=== PATIENT | female | born 1950 | race Caucasian/White ===

== ENCOUNTER → 2024-11-24 05:00 | Outpatient (REF) | payer MEDICARE, MEDICAID, SELFPAY ==
--- OUTSIDE RECORDS SUMMARY | 2024-11-24 03:45 | XMS RPT_ITS | CCD ---
Author Organization [facility] ion Partnership [facility] Care Team Providers Care Whittling Room Operator Name Role Phone Jeffry Castro Unavailable Unavailable Results Test Name Value Interpretation Reference Range Facility CBC-Complete Blood Cnt No Di ffon 07-30-2017 Erythrocyte distribution width Auto Ratio (RBC) 14.2 % Normal 11.6-14.6 [facility] Comment on above: Performed By: #### L 100.0500 ####[facility] [address] [place], [address] Erythrocytes (RBC) 3.53 M/mm3 Low 4.2-5.4 [facility] Comment on above: Performed By: #### L 100.0500 ####[facility] [address] [place], [address] Hematocrit (HCT) 35.6 % Low 37-47 [facility] Comment on above: Performed By: #### L 100.0500 ####[facility] [address] [place], [address] Hemoglobin mass conc (Bld) 11.3 g/dL Low 12.0-15.0 [facility] Comment on above: Performed By: #### L 100.0500 ####[facility] [address] [place], [address] MCH 32.0 pg Normal 27.0-32.0 [facility] Comment on above: Performed By: #### L 100.0500 ####[facility] [address] [place], [address] MCHC mass conc (RBC) 31.7 g/gl Low 32-36 [facility] Comment on above: Performed By: #### L 100.0500 ####[facility] [address] [place], [address] MCV 100.8 fL High 81-99 [facility] Comment on above: Performed By: #### L 100.0500 ####[facility] [address] [place], [address] Platelet mean volume (PMV) 11.5 fL Normal 6.2-12.0 [facility] Comment on above: Performed By: #### L 100.0500 ####[facility] [address] [place], [address] Platelets 201 10*3/uL Normal 150-450 [facility] Comment on above: Performed By: #### L 100.0500 ####[facility] [address] [place], [address] RDW SD 51.3 fl High 35.1-43.9 [facility] Comment on above: Performed By: #### L 100.0500 ####[facility] [address] [place], [address] WBC (Leukocytes) 7.4 10*3/uL Normal 4.4-11.0 [facility] Comment on above: Performed By: #### L 100.0500 ####[facility] [address] [place], [address] Comprehensive Metabolic Prof aron 07-30-2017 A/G 0.8 RATIO Low 0.9-2.4 [facility] Comment on above: Performed By: #### L 500.4050, L500.4100, L501.2300, L501.5200, L501.9520 ####[facility] [address] [place], [address] Alanine aminotransferase (ALT) 11 U/L Low 13-56 [facility] Comment on above: Performed By: #### L 500.4050, L500.4100, L501.2300, L501.5200, L501.9520 ####[facility] [address] [place], [address] Albumin 2.7 g/dL Low 3.2-5.0 [facility] Comment on above: Performed By: #### L 500.4050, L500.4100, L501.2300, L501.5200, L501.9520 ####[facility] [address] [place], [address] Alkaline phosphatase (ALP) 73 U/L Normal 45-117 [facility] Comment on above: Performed By: #### L 500.4050, L500.4100, L501.2300, L501.5200, L501.9520 ####[facility] [address] [place], [address] Aspartate aminotransferase (AST) 12 U/L Low 15-37 [facility] Comment on above: Performed By: #### L 500.4050, L500.4100, L501.2300, L501.5200, L501.9520 ####[facility] [address] [place], [address] Bilirubin (total) 0.60 mg/dL Normal 0.20-1.00 [facility] Comment on above: Performed By: #### L 500.4050, L500.4100, L501.2300, L501.5200, L501.9520 ####[facility] [address] [place], [address] BUN (urea nitrogen) 9.0 RATIO Low 10-20 [facility] Comment on above: Performed By: #### L 500.4050, L500.4100, L501.2300, L501.5200, L501.9520 ####[facility] [address] [place], [address] Calcium 7.9 mg/dL Low 8.5-10.1 [facility] Comment on above: Performed By: #### L 500.4050, L500.4100, L501.2300, L501.5200, L501.9520 ####[facility] [address] [place], [address] Chloride 108 mmol/L High 98-107 [facility] Comment on above: Performed By: #### L 500.4050, L500.4100, L501.2300, L501.5200, L501.9520 ####[facility] [address] [place], [address] CO2 31.0 mmol/L Normal 21.0-32.0 [facility] Comment on above: Performed By: #### L 500.4050, L500.4100, L501.2300, L501.5200, L501.9520 ####[facility] [address] [place], [address] Creatinine 0.78 mg/dL Normal 0.55-1.02 [facility] Comment on above: Result Comment: The validity of the calculated GFR AND GFRAA in patients over70 years has not been determined. Clinical correlation isessential. Performed By: #### L 500.4050, L500.4100, L501.2300, L501.5200, L501.9520 ####[facility] [address] [place], [address] eGFR (non-black) 95 mL/min/{1.73_m2} Normal >60 [facility] Comment on above: Result Comment: Afri can Jordanian GFR Calc Performed By: #### L 500.4050, L500.4100, L501.2300, L501.5200, L501.9520 ####[facility] [address] [place], [address] eGFR (non-black) 78 mL/min/{1.73_m2} Normal >60 [facility] Comment on above: Result Comment: Non- GFR Calc Performed By: #### L 500.4050, L500.4100, L501.2300, L501.5200, L501.9520 ####[facility] [address] [place], [address] GAP 4 Low 5-15 [facility] Comment on above: Performed By: #### L 500.4050, L500.4100, L501.2300, L501.5200, L501.9520 ####[facility] [address] [place], [address] Globulin 3.5 g/dL Normal 2.2-4.2 [facility] Comment on above: Performed By: #### L 500.4050, L500.4100, L501.2300, L501.5200, L501.9520 ####[facility] [address] [place], [address] Glucose mass conc 208 mg/dL High 74-106 [facility] Comment on above: Result Comment: Gluc ose result greater than or equal to 200 mg/dLsuggests DIABETES MELLITUS per A.D.A. criteria.Please note revised GLUCOSE reference range llbopazds84/02/2018. Performed By: #### L 500.4050, L500.4100, L501.2300, L501.5200, L501.9520 ####[facility] [address] [place], [address] Potassium molar conc 4.2 mmol/L Normal 3.5-5.1 [facility] Comment on above: Performed By: #### L 500.4050, L500.4100, L501.2300, L501.5200, L501.9520 ####[facility] [address] [place], [address] Sodium 143 mmol/L Normal 136-145 [facility] Comment on above: Performed By: #### L 500.4050, L500.4100, L501.2300, L501.5200, L501.9520 ####[facility] [address] [place], [address] T PROT 6.2 g/dL Low 6.4-8.2 [facility] Comment on above: Performed By: #### L 500.4050, L500.4100, L501.2300, L501.5200, L501.9520 ####[facility] [address] [place], [address] Urea nitrogen 7 mg/dL Normal 7-18 [facility] Comment on above: Performed By: #### L 500.4050, L500.4100, L501.2300, L501.5200, L501.9520 ####[facility] [address] [place], [address] Hemoglobin A1con 07-30-2017 Hemoglobin A1c/Hemoglobin.total mass fraction (Bld) 8.4 % High 4.2-6.3 [facility] Comment on above: Performed By: #### L 501.9985 ####[facility] [address] [place], [address] Lipid Profileon 07-30-2017 Cholesterol 124 mg/dL Normal 200 [facility] Comment on above: Result Comment: <200 mg/dL Desirable 200-240 mg/dL Borderline >240 mg/dL High Risk Performed By: #### L 500.4050, L500.4100, L501.2300, L501.5200, L501.9520 ####[facility] [address] [place], [address] Cholesterol in VLDL mass conc 15 mg/dL Normal 5-40 [facility] Comment on above: Performed By: #### L 500.4050, L500.4100, L501.2300, L501.5200, L501.9520 ####[facility] [address] [place], [address] HDL Cholesterol 44 mg/dL Normal [facility] Comment on above: Result Comment: The drugs N-Acetylcysteine and Metamizole may falselydepress this assay. Reference Range HDL <40 mg/dL Low HDL Cholesterol HDL >or= 60 mg/dL High HDL Cholesterol Performed By: #### L 500.4050, L500.4100, L501.2300, L501.5200, L501.9520 ####[facility] [address] [place], [address] LDL Cholesterol 65 mg/dL Normal 0-130 [facility] Comment on above: Performed By: #### L 500.4050, L500.4100, L501.2300, L501.5200, L501.9520 ####[facility] [address] [place], [address] Triglyceride 76 mg/dL Normal [facility] Comment on above: Result Comment: The drugs N-Acetylcysteine and Metamizole may falselydepress this assay.Serum Triglycerides Reference Interval Normal <150 mg/dL Borderline high 150 - 199 mg/dL High 200 - 499 mg/dL Very High > or = 500 mg/dL Performed By: #### L 500.4050, L500.4100, L501.2300, L501.5200, L501.9520 ####[facility] [address] [place], [address] Magnesiumon 07-30-2017 Magnesium 2.1 mg/dL Normal 1.6-2.6 [facility] Comment on above: Performed By: #### L 500.4050, L500.4100, L501.2300, L501.5200, L501.9520 ####[facility] [address] [place], [address] Phosphoruson 07-30-2017 Phosphate 3.6 mg/dL Normal 2.5-4.9 [facility] Comment on above: Performed By: #### L 500.4050, L500.4100, L501.2300, L501.5200, L501.9520 ####[facility] [address] [place], [address] Thyroid Stim Hormone (TSH)on 07-30-2017 Thyroid stimulating hormone (TSH) 4.72 uIU/mL High 0.358-3.74 [facility] Comment on above: Performed By: #### L 500.4050, L500.4100, L501.2300, L501.5200, L501.9520 ####[facility] [address] [place], [address] Vitamin D,25 Hydroxyon 07-30 Vitamin D 25-OH 9.3 ng/mL Low 29.95-100.01 [facility] Comment on above: Result Comment: Nerissa min D 25(OH) Status Range Deficiency <20 ng/mL (50nmol/L) Insuffciency 20 - 30 ng/mL (50 - 75 nmol/L) Sufficiency 30 - 100 ng/mL (75 - 250 nmol/L) Toxicity >100 ng/mL (>250 nmol/L) Performed By: #### L 506.1000 ####[facility] [address] [place], [address] Encounters Encounter Date Encounter Type Care Provider Facility Start: 07-30-2017 [facility] Facility: [facility] Payers Date Payer Category Payer Self-pay Summary Purpose Family History No Family History Records Found Advance Directives No Advanced Directives Records Found Additional Source Comments INFORMATION SOURCE (unrecogn ized section and content) DATE CREATED AUTHOR 09/20/2017 [facility] FOR RECORDS PERTAINING TO PATIENTS WHO ARE OR HAVE BEEN ENROLLED IN A CHEMICAL DEPENDENCY/SUBSTANCEABUSE PROGRAM, SOME INFORMATION MAY BE OMITTED. This clinical summary was aggregated from multiple sources. Caution should be exercised in using it in the provision of clinical care. This summary normalizes information from multiple sources, and as a consequence, information in this document may materially change the coding, format and clinical context of patient data. In addition, data may be omitted in some cases. CLINICAL DECISIONS SHOULD BE BASED ON THE PRIMARY CLINICAL RECORDS. [facility] [employer] [facility]. provides no warranty or guarantee of the accuracy or completeness of information in this document.
[2024-11-24 08:48] LABS: Hematocrit 37.3 % (37-47); Hemoglobin 12.2 g/dL (12.0-15.0); Mean Corp Hgb Conc 32.7 g/dL (32-36); Mean Corpuscular Volume 96.6 fL (81-99); Mean Platelet Vol. 12.8 fl (6.2-12.0); Platelet Count 180 K/mm3 (150-450); RBC Distribution Width CV 13.9 % (11.6-14.6); RBC Distribution Width SD 49.1 fl (35.1-43.9); Red Blood Count 3.86 M/mm3 (4.2-5.4); White Blood Count 6.7 K/mm3 (4.4-11.0)
[2024-11-24 09:42] LABS: Cholesterol 141 mg/dL (<=200); Low Density Lipoprotein Calc. 61 mg/dL; Triglycerides 244 mg/dL; Very Low Density Lipoprotein 49 mg/dL (5-40); Vitamin D,25 Hydroxy 26.5 ng/mL (30-100); cholesterol:hdl ratio screen 4.56
[2024-11-24 09:48] LABS: Anion Gap 16 (5-15); BUN 19 mg/dL (4-19); BUN/Creat Ratio 26.6 RATIO (10-20); Calcium,Total 8.7 mg/dL (7.6-11.0); Carbon Dioxide 21.2 mmol/L (21.0-32.0); Chloride 103 mmol/L (98-108); Glucose 177 mg/dL (70-99); Potassium 4.1 mmol/L (3.3-5.1)
== END ==
LOC: OLS.ACW300 05:00
PROVIDERS: Visit Provider Family Medicine
DX: E11.621 Type 2 diabetes mellitus with foot ulcer (principal); L97.412 Non-pressure chronic ulcer of right heel and midfoot with fat layer exposed; M62.81 Muscle weakness (generalized); R27.9 Unspecified lack of coordination; I10 Essential (primary) hypertension
CPT/HCPCS: 36415; 80048; 80061; 82306; 83036; 84443; 85027

== ENCOUNTER → 2025-02-06 05:00 | Outpatient (REF) | payer MEDICARE, MEDICAID, SELFPAY ==
--- OUTSIDE RECORDS SUMMARY | 2025-02-06 04:20 | XMS RPT_ITS | CCD ---
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 Name Role Phone Patricia King Unavailable Unavailable Gunning, Diego H Unavailable Unavailable Unavailable Unavailable Unavailable Catarina Diego H Unavailable [phone] Praveen MichaelKasire Unavailable Sandra Martinez Unavailable Unavailable Jens Frederick Unavailable Jose Shultz Unavailable Loli Kingston Unavailable Cliff Anaya Unavailable Unavailable Reji Levin Unavailable Rosendo COSBY, Armando Bunch Primary Care Provider [phone] Vogt DOPaige Primary Care Provider Darci DO, Annette A Unavailable Paige Rivera DO Primary Care Provider Darci DO, Annette A Unavailable Hakangt Tereza JOVELPaige Primary Care Provider Darci DO, Annette A Unavailable Bashir Vásquez MD Unavailable Paige Rivera DO Primary Care Provider Darci DO, Annette A Unavailable Bashir Vásquez MD Unavailable Paige Rivera DO Primary Care Provider Darci DO, Annette A Unavailable Jeffry Lopez Attending Unavailable BASHIR VÁSQUEZ Attending Unavailable PAIGE RIVERA Primary Care Unavailable PAIGE RIVERA Primary Care Unavailable CRISTINO BRUNO Admitting Unavailable PAIGE RIVERA Attending Unavailable PAIGE RIVERA Primary Care Unavailable GODWIN GOETZ Admitting Unavailable TESHA MCNAMARA Attending Unavailable Allergies Allergy Classification Reported Allergen(s) Allergy Type Date of Onset Reaction(s) Facility ertapenem (2 sources) ertapenem Drug Allergy 08-02-2022 [facility] [employer] (20 sources) ertapenem Drug Allergy 08-02-2022 [facility] Medications Current Medications Medication Drug Class(es) Dates Sig (Normalized) Sig (Original) aspirin 81 mg chewable tablet (9 sources) Platelet Aggregation Inhibitor, Nonsteroidal Anti-inflammatory Drug Start: 03-09-2021 End: 06-16-2022 take 81 mg by mouth once daily 81 mg, Oral, DAILY, First dose (after last modification) on Sun03/22/21 at 0900 Start: 08-14-2019 take 1 tablet by fito th once daily aspirin 81 mg oral delayed release tablet ; 1 tab(s) orally once a day Quantity: 0 Refills: 0 Ordered: 14-Aug-2019 Pasha Hay Start: 14-Aug-2019 Generic Substitution Allowed Calcium Carbonate-Vitamin D (Oyster Shell Calcium/D) 500-5 MG-MCG tablet (3 sources) take 1 tablet by mouth once daily Calcium Carbonate-Vitamin D (Oyster Shell Calcium/D) 500-5 MG-MCG tablet Take 1 tablet by mouth daily. Active citalopram 10 mg oral tablet (4 sources) Serotonin Reuptake Inhibitor Start: take 1 tablet by mouth once daily citalopram 10 mg oral tablet ; 1 tab(s) orally once a day Quantity: 0 Refills: 0 Ordered: 14-Aug-2019 Pasha Hay Start: 14-Aug-2019 Status: Other Generic Substitution Allowed collagenase 0.25 unt/mg topical ointment (3 sources) Collagen-specifi c Enzyme Start: End: Start: 04-08-2021 apply 1 dose topically once To pical, EVERY MWF, First dose (after last modification) on Sun04/08/21 at 0900 Apply to *Right plantar foot with wound VAC dressing changes Start: 04-01-2021 End: 04-05-2021 Topical, DAILY, First dose o n Sun04/01/21 at 0900 Apply to *Right plantar foot. . Remove Wound VAC dressing Sunday 04/01 and start Santyl with saline moist gauze Daily dressing changes, pad with ABD and secure with kerlix diclofenac sodium 0.01 mg/mg topical gel (20 sources) Nonsteroidal Anti-inflammatory Drug Start: 01-11-2023 End: 11-30-2023 Diclofenac Sodium (Voltaren) 1 % gel Apply 4 g topically 2 times daily. 50 g 1 01/11/2023 Active Start: 01-08-2023 End: 01-11-2023 Diclofenac Sodium (Voltaren) 1 % gel 4 g Drug or medicament (substanc e) (14 sources) Start: 11-29-2023 End: 12-07-2023 take 2000 mg intravenously every eight hours Start: 11-26-2023 End: 11-30-2023 Start: 11-25-2023 End: 11-30-2023 Start: 07-30-2023 End: 08-09-2023 apply 1 dose topically every eight hours Topical, Every 8 hours, First dose on Sun07/30/23 at 2230 Start: 06-16-2022 End: 06-24-2022 Start: 06-16-2022 End: 06-16-2022 Start: 03-09-2021 apply 1 dose topically twice d aily Topical, 2 TIMES DAILY, First dose on Sun03/09/21 at 1400 Start: 03-09-2021 Topical, PRN, Dry Skin, Starting on Sun03/09/21 at 1333 ertapenem 1000 mg injection (2 sources) Penem Antibacterial ertapenem 1 g injection ; 1 gram(s) intravenous once a day (at bedtime) Quantity: 0 Refills: 0 Ordered: 17-Mar-2020 Vanessa Castillo Status: Other Generic Substitution Allowed folic acid 1 mg oral tablet (11 sources) Start: 08-07-19 End: 11-08-19 take 1 tablet by mouth once daily folic acid (Folvite) 1 MG tablet Take 1 tablet (1 mg) by mouth daily. 30 tablet 2 08/10/2023 11/08/2023 Active 1 ml hydrALAZINE hydrochloride 20 mg/ml injection (5 sources) Arteriolar Vasodilator Start: 01-08-20 22 10 mg, IntraVENous, EVERY 6 HOURS PRN, High Blood Pressure, SBP>160, Starting on 04/09/21 at 1436 HOLD for HR>100 Start: 03-15-2021 End: 03-24-2021 20 mg, IntraVENous, EVERY 6 HOURS, First dose on Sun03/15/21 at 1400 Hold for SBP < 140 Start: 03-15-2021 End: 04-01-2021 10 mg, IntraVENous, EVERY 3 HOURS PRN, High Blood Pressure, Starting on Sun03/15/21 at 1115 PRN for SBP > 180 Start: 03-15-2021 End: 03-15-2021 10 mg, IntraVENous, ONCE, On Sun03/15/21 at 0915, For 1 dose Start: 03-15-2021 End: 03-15-2021 10 mg, IntraVENous, EVERY 4 HOURS PRN, High Blood Pressure, Starting on Sun03/15/21 at 0530 PRN for SBP > 180 insulin lispro 100 unt/ml injectable solution (20 sources) Insulin Analog Start: 08-09-2023 End: 10-18-2024 Insulin Lispro (Humalog) 100 UNIT/ML solution injection Inject 5 Units under the skin in the morning and 5 Units at noon and 5 Units in the evening. Inject with meals. 10 mL 2 08/09/2023 Active Start: 08-09-2023 End: 08-08-2024 Start: 08-03-2023 End: 08-03-2023 0-18 Units, SubCUTAneous, Ev salvador 6 hours, First dose on Sun08/03/23 at 0000, High Dose Correction Algorithm Glucose: Dose: LESS than 139 No Insulin 140-199 3 Unit 200-249 6 Units 250-299 9 Units 300-349 12 Units 350-400 15 Units Above 400 18 Units Start: 07-31-2023 End: 08-01-2023 inject 3 [IU] by subcutaneous injection three times daily at mealtime 3 Units, SubCUTAneous, 3 times daily with meals, First dose on Sun07/31/23 at 0800, Recovery & On Unit, On hold since Sun07/31/2023 at 1637 until manually unheld Start: 07-30-2023 End: 07-31-2023 inject 12 [IU] by subcutaneous injection every six hours 0-12 Units, SubCUTAneous, Every 6 hours, First dose on Sun07/30/23 at 2145, Medium Dose Correction Algorithm Glucose: Dose: LESS than 139 No Insulin 140-199 2 Unit 200-249 4 Units 250-299 6 Units 300-349 8 Units 350-400 10 Units Above 400 12 Units Start: 08-07-2022 End: 08-08-2024 inject 5 [IU] by subcutaneous injection three times daily at mealtime 5 Units, SubCUTAneous, 3 times daily with meals, First dose on Sun08/06/23 at 1700 Start: 08-04-2022 End: 08-07-2023 Insulin Lispro (Humalog) 100 UNIT/ML solution injection Inject 3 Units under the skin in the morning and 3 Units at noon and 3 Units in the evening. Inject with meals. 10 mL 2 08/07/2022 08/07/2023 Active Start: 08-03-2022 End: 08-09-2023 inject 6 [IU] by subcutaneous injection three times daily at mealtime 0-6 Units, SubCUTAneous, 3 times daily with meals, First dose on Sun08/06/23 at 1700, Low Dose Correction Algorithm Glucose: Dose: LESS than 139 No Insulin 140-199 1 Unit 200-249 2 Units 250-299 3 Units 300-349 4 Units 350-400 5 Units Above 400 6 Units Start: 06-16-2022 End: 06-16-2023 inject 3 [IU] by subcutaneous injection three times daily at mealtime 3 Units, SubCUTAneous, 3 times daily with meals, First dose on Sun01/08/23 at 1305 Start: 06-14-2022 End: 06-16-2023 Insulin Lispro (Humalog) 100 UNIT/ML solution injection Inject 0-18 Units under the skin 4 times daily (before meals and nightly). 10 mL 12 06/16/2022 08/07/2022 Discontinued (Stop taking at discharge) Start: 06-09-2022 End: 06-14-2022 0-18 Units, SubCUTAneous, Ev salvador 6 hours, First dose on Sun06/10/22 at 0730 High Dose Correction Algorithm Glucose: &n bsp; &nbsp ; &n bsp; & nbsp;Dose: LESS than 139 No Insulin 140-199 3 Unit 200-249 6 Units 250-299 9 Units 300-349 12 Units 350-400 15 Units Above 400 18 Units Start: 04-10-2021 End: 04-11-2021 inject 7 [IU] by subcutaneous injection three times daily at mealtime 7 Units, SubCUTAneous, 3 TIMES DAILY WITH MEALS, First dose (after last modification) on Sun04/10/21 at 1200 Start: 04-09-2021 End: 04-10-2021 inject 5 [IU] by subcutaneous injection three times daily at mealtime 5 Units, SubCUTAneous, 3 TIMES DAILY WITH MEALS, First dose (after last modification) on Sun04/09/21 at 1200 Start: 04-06-2021 End: 04-09-2021 inject 3 [IU] by subcutaneous injection three times daily at mealtime 3 Units, SubCUTAneous, 3 TIMES DAILY WITH MEALS, First dose on Sun04/06/21 at 1700 Start: 03-16-2021 End: 04-13-2021 Start: 03-09-2021 End: 03-15-2021 inject 3 [IU] by subcutaneous injection three times daily at mealtime 3 Units, SubCUTAneous, 3 TIMES DAILY WITH MEALS, First dose on Sun03/09/21 at 0800 insulin lispro 1 00 units/mL subcutaneous solution ; subcutaneous 3 times a day (before meals) Quantity: 0 Refills: 0 Ordered: 02-Feb-2021 Neelima Real Generic Substitution Allowed HumaLOG 100 unit s/mL injectable solution ; 2 UNITS injectable , As Needed PER SLIDING SCALE TID Quantity: 0 Refills: 0 Ordered: 05-Aug-2019 Nany Mohamud Status: Discontinued Generic Substitution Allowed Lactobacillus acidophilus (2 sources) Start: 02-06-2021 lactobacillus acidophilus oral tablet ; orally Quantity: 0 Refills: 0 Ordered: 06-Feb-2021 Seble Garcia Start: 06-Feb-2021 Generic Substitution Allowed losartan potassium 50 mg oral tablet (1 source) Angiotensin 2 Receptor Dyan Start: 02-10-2021 take 1 tablet by mouth once daily losartan 50 mg oral tablet ; 1 tab(s) orally once a day Quantity: 0 Refills: 0 Ordered: 10-Feb-2021 Cristiane Poon Start: 10-Feb-2021 Generic Substitution Allowed magnesium hydroxide 80 mg/ml oral suspension (5 sources) take 30 mL by mouth once daily magnesium hydroxide (Milk of Magnesia) 400 MG/5ML suspension Take 30 mL by mouth Nightly. Active End: 06-16-2022 take 30 mL by mouth every twenty-four hours as needed for constipation take 30 mL by mouth every twenty-four hours as needed for constipation magnesium hydroxide (Milk of Magnesia) 800 MG/5ML suspension Take 30 mL by mouth Daily as needed for constipation. 0 Suspended magnesium oxide 400 mg oral tablet (3 sources) Start: 08-14-2019 take 1 tablet by mouth once daily magnesium oxide 400 mg (241.3 mg elemental magnesium) oral tablet ; 1 tab(s) orally once a day Quantity: 0 Refills: 0 Ordered: 14-Aug-2019 Pasha Hay Start: 14-Aug-2019 Generic Substitution Allowed End: 04-13-2021 metFORMIN hydrochloride 500 mg oral tablet (4 sources) Biguanide take 1 tablet by mouth twice daily at mealtime metFORMIN (Glucophage) 500 MG tablet Take 500 mg by mouth 2 times daily (with meals). Active take 1 tablet by mouth twice edi ly metFORMIN 1000 mg oral tablet ; 1 tab(s) orally 2 times a day Quantity: 0 Refills: 0 Ordered: 17-Mar-2020 Vanessa Castillo Generic Substitution Allowed metoprolol tartrate 25 mg oral tablet (2 sources) beta-Adrenergic Dyan take 1 tablet by mouth twice daily metoprolol tartrate 25 mg oral tablet ; 1 tab(s) orally 2 times a day Quantity: 0 Refills: 0 Ordered: 05-Aug-2019 Nany Mohamud Status: Discontinued Generic Substitution Allowed Multivitamin preparation (4 sources) take 1 tablet by mouth once daily Multi Vitamin+ ; 1 tab(s) orally once a day Quantity: 0 Refills: 0 Ordered: 05-Aug-2019 Nany Mohamud Generic Substitution Allowed take 1 capsule by mouth twice da cosmo Prostate 2.4 oral capsule ; 1 cap(s) orally 2 times a day Quantity: 0 Refills: 0 Ordered: 05-Aug-2019 Nany Mohamud Status: Discontinued Generic Substitution Allowed nitrofurantoin, macrocrystals 50 mg oral capsule (2 sources) Nitrofuran Antibacterial take 1 capsule by mouth once daily at bedtime nitrofurantoin macrocrystals 50 mg oral capsule ; 1 cap(s) orally once a day (at bedtime) Quantity: 0 Refills: 0 Ordered: 02-Feb-2021 Neelima Real Status: Discontinued Generic Substitution Allowed nitrofurantoin, macrocrystals 25 mg / nitrofurantoin, monohydrate 75 mg oral capsule (2 sources) Nitrofuran Antibacterial Start: 2019 take 1 capsule by mouth twice daily Macrobid 100 mg oral capsule ; 1 cap(s) orally 2 times a day for 10 days Quantity: 0 Refills: 0 Ordered: 17-Mar-2020 Vanessa Castillo Start: 14-Mar-2020 Status: Other Generic Substitution Allowed pantoprazole 40 mg delayed release oral tablet (1 source) Proton Pump Inhibitor Start: 2020 take 40 mg by mouth once daily before breakfast 40 mg, Oral, DAILY BEFORE BREAKFAST, First dose on Sun03/22/21 at 0700 Do not crush or break. semaglutide (Ozempic) 2 MG/3ML pen-injector (2 sources) inject 0.25 mg by subcutaneous injection once daily semaglutide (Ozempic) 2 MG/3ML pen-injector Inject 0.25 mg under the skin daily. Active traMADol hydrochloride 50 mg oral tablet (2 sources) Opioid Agonist take 1 tablet by mouth four times daily at mealtime traMADol (Ultram) 50 MG tablet Take 50 mg by mouth 4 times daily (with meals and nightly). Active Vancomycin - RPh to Dose - IV Piggy Back (2 sources) Start: 2020 Vancomycin - RPh to Dose - IV Piggy Back ; 1 each - to As Specified Variable Quantity: 0 Refills: 0 Ordered: 06-Feb-2021 Seble Garcia Start: 06-Feb-2021 Status: Discontinued Generic Substitution Allowed Start: 02-06-2021 Vancomycin - R Ph to Dose - IV Piggy Back ; 1 each - to As Specified Variable Quantity: 0 Refills: 0 Ordered: 06-Feb-2021 RadhaSeble Start: 06-Feb-2021 Generic Substitution Allowed vitamin b12 1 mg oral tablet (11 sources) Vitamin B12 Start: 08-07-2023 End: 11-08-2023 take 1 tablet by mouth once daily cyanocobalamin (Vitamin B-12) 1000 MCG tablet Take 1 tablet (1,000 mcg) by mouth daily. 30 tablet 2 08/10/2023 11/08/2023 Active warfarin sodium 4 mg oral tablet (2 sources) Vitamin K Antagonist take 1 tablet by mouth once daily warfarin 4 mg oral tablet ; 1 tab(s) orally once a day Quantity: 0 Refills: 0 Ordered: 05-Aug-2019 Nany Mohamud Status: Discontinued Generic Substitution Allowed (2 sources) Completed/Discontinued Medications Medication Drug Class(es) Dates Sig (Normalized) Sig (Original) acetaminophen 325 mg oral tablet (20 sources) Start: 01-29-2025 End: 02-04-2025 325 mg, Oral, 3 times daily, First dose on [place] 01/29/25 at 1400, Maximum dose of acetaminophen is 4000 mg from all sources in 24 hours. Start: 01-29-2025 End: 02-04-2025 take 1 tablet by mouth every six hours as needed for pain and fever acetaminophen (Tylenol) tablet 650 mg Start: 10-09-2024 End: 10-09-2024 Start: 01-03-2024 End: 01-03-2024 1,000 mg, Oral, Once, On [place] 01/03/24 at 1000, For 1 dose, Preprocedure, Administer 60 minutes prior to surgery. Start: 01-08-2023 End: 01-11-2023 take 1 tablet by mouth every six hours as needed for pain and fever acetaminophen (Tylenol) tablet 650 mg Start: 08-02-2022 End: 08-07-2022 take 1 tablet by mouth every six hours as needed for pain and fever acetaminophen (Tylenol) tablet 650 mg Start: 06-09-2022 End: 06-09-2022 take 650 mg rectal route once 650 mg, Rectal, Once, On Sun06/09/22 at 1145, For 1 dose Start: 03-21-2021 End: 12-09-2023 take 650 mg by mouth every six hours as needed for pain and fever Start: 03-16-2021 End: 03-21-2021 975 mg, Per G Tube, 3 TIMES DAILY, First dose (after last modification) on Sun03/16/21 at 0900 Maximum dose of acetaminophen is 4000 mg from all sources in 24 hours. Start: 03-08-2021 End: 03-15-2021 take 975 mg by mouth three times daily, then take 4000 mg by mouth every twenty-four hours 975 mg, Oral, 3 TIMES DAILY, First dose on Sun03/08/21 at 2100 Maximum dose of acetaminophen is 4000 mg from all sources in 24 hours. Start: 08-14-2019 take 3 tablets by mo uth every eight hours acetaminophen 325 mg oral tablet ; 3 tab(s) orally every 8 hours Quantity: 0 Refills: 0 Ordered: 14-Aug-2019 Pasha Hay Start: 14-Aug-2019 Status: Other Generic Substitution Allowed take 2 tablets by mo uth three times daily Tylenol 500 mg oral tablet ; 2 tab(s) orally 3 times a day Quantity: 0 Refills: 0 Ordered: 02-Feb-2021 Neelima Real Generic Substitution Allowed 20 ml albumin human, skilled nursing 250 mg/ml injection (20 sources) Human Serum Albumin Start: 08-05-2023 End: 08-06-2023 take 25 g intravenously every eight hours 25 g, IntraVENous, at 200 mL/hr, Administer over 30 Minutes, Every 8 hours, First dose on Sun08/05/23 at 1400, For 4 doses Start: 08-02-2023 End: 08-05-2023 50 g, IntraVENous, at 200 mL /hr, Administer over 1 Hours, Once, On Sun08/03/23 at 0600, For 1 dose Start: 07-30-2023 End: 07-31-2023 50 g, IntraVENous, at 200 mL /hr, Administer over 1 Hours, Once, On Sun07/31/23 at 1830, For 1 dose Start: 06-09-2022 End: 06-10-2022 50 g, IntraVENous, Once, On Sun06/10/22 at 0415, For 1 dose Infusion rate depends on indication and clinical situation. In emergencies, may administer as rapidly as necessary to improve clinical condition. After initial volume replacement: 5%: Do not exceed 2 to 4 mL/minute in patients with normal plasma volume; 5 to 10 mL/minute in patients with hypoproteinemia 25%: Do not exceed 1 mL/minute in patients with normal plasma volume; 2 to 3 mL/minute in patients with hypoproteinemia Start: 03-21-2021 End: 03-21-2021 50 g, IntraVENous, at 200 mL /hr, Administer over 60 Minutes, ONCE, On Sun03/21/21 at 1600, For 1 dose Infusion rate depends on indication and clinical situation. In emergencies, may administer as rapidly as necessary to improve clinical condition. After initial volume replacement: 5%: Do not exceed 2 to 4 mL/minute in patients with normal plasma volume; 5 to 10 mL/minute in patients with hypoproteinemia 25%: Do not exceed 1 mL/minute in patients with normal plasma volume; 2 to 3 mL/minute in patients with hypoproteinemia Start: 03-16-2021 End: 03-17-2021 50 g, IntraVENous, at 200 mL /hr, Administer over 60 Minutes, ONCE, On Sun03/16/21 at 2300, For 1 dose Infusion rate depends on indication and clinical situation. In emergencies, may administer as rapidly as necessary to improve clinical condition. After initial volume replacement: 5%: Do not exceed 2 to 4 mL/minute in patients with normal plasma volume; 5 to 10 mL/minute in patients with hypoproteinemia 25%: Do not exceed 1 mL/minute in patients with normal plasma volume; 2 to 3 mL/minute in patients with hypoproteinemia Start: 03-15-2021 End: 03-15-2021 50 g, IntraVENous, at 200 mL /hr, Administer over 60 Minutes, ONCE, On Sun03/15/21 at 0330, For 1 dose Infusion rate depends on indication and clinical situation. In emergencies, may administer as rapidly as necessary to improve clinical condition. After initial volume replacement: 5%: Do not exceed 2 to 4 mL/minute in patients with normal plasma volume; 5 to 10 mL/minute in patients with hypoproteinemia 25%: Do not exceed 1 mL/minute in patients with normal plasma volume; 2 to 3 mL/minute in patients with hypoproteinemia albuterol 0.833 mg/ml / ipratropium bromide 0.167 mg/ml inhalation solution (4 sources) Anticholinergic, beta2-Adrenergic Agonist Start: 07-31-2023 End: 08-09-2023 3 mL, Nebulization, 3 times daily, First dose on Sun07/31/23 at 0800 Start: 03-27-2021 End: 03-29-2021 1 ampule, Inhalation, 3 TIME S DAILY, First dose on 03/27/21 at 0945 Start: 03-13-2021 1 ampule, Inha lation, EVERY 4 HOURS PRN, Shortness of Breath, Starting on 03/13/21 at 1411 ALPRAZolam 0.25 mg disintegrating oral tablet (4 sources) Benzodiazepine Start: 01-03-2024 End: 01-03-2024 take 0.25 mg by mouth once as needed for anxiety 0.25 mg, Oral, Once PRN, anxiety, Starting on [place] 01/03/24 at 0948, For 1 dose, Preprocedure, Please do not administer prior to obtaining consent and/or history and physical. Start: 09-27-2023 End: 09-27-2023 take 0.25 mg by mouth once as needed for anxiety 0.25 mg, Oral, Once PRN, anxiety, Starting on [place] 09/27/23 at 1014, For 1 dose, Preprocedure, Please do not administer prior to obtaining consent and/or history and physical. aluminum hydroxide 40 mg/ml / magnesium hydroxide 40 mg/ml oral suspension (3 sources) End: 06-16-2022 take 30 mL by mouth every four hours as needed for gastroesophageal reflux disease take 30 mL by mouth every four hours as needed for gastroesophageal reflux disease aluminum-magnesium hydroxide 200-200 MG/5ML suspension Take 30 mL by mouth every 4 hours as needed for heartburn. 0 Suspended apixaban 5 mg oral tablet (20 sources) Factor Xa Inhibitor Start: 01-29-2025 End: 02-04-2025 take 5 mg by mouth twice daily 5 mg, Oral, 2 times daily, First dose on Celeste 30/25 at 1325, Anticoagulant Start: 10-09-2024 End: 10-18-2024 Start: 11-23-2023 End: 11-30-2023 Start: 07-31-2023 End: 08-09-2023 take 5 mg by mouth twice daily 5 mg, Oral, 2 times edi ly, First dose on Sun07/31/23 at 0200, Anticoagulant Start: 01-29-2021 End: 01-11-2023 take 5 mg by mouth twice daily 5 mg, Oral, 2 times edi ly, First dose on Sun06/09/22 at 2100, For 7 days Anticoagulant ascorbic acid 500 mg chewable tablet (20 sources) Vitamin C Start: 07-31-2023 End: 08-09-2023 take 250 mg by mouth once daily 250 mg, Oral, Daily, First dose on Sun07/31/23 at 0900, Recovery & On Unit, On hold since Sun08/06/2023 at 0029 until manually unheld Start: 01-08-2023 End: 01-11-2023 take 250 mg by mouth once daily 250 mg, Oral, Daily, F irst dose on Sun01/08/23 at 1305 take 1 tablet by fito th once daily ascorbic acid (Vitamin C) 250 MG tablet Take 250 mg by mouth daily. Active take 1 tablet by fito th once daily ascorbic acid 500 mg oral tablet ; 1 tab(s) orally once a day Quantity: 0 Refills: 0 Ordered: 05-Aug-2019 Nany Mohamud Generic Substitution Allowed atorvastatin 20 mg oral tabl et (20 sources) HMG-CoA Reductase Inhibitor Start: 11-23-2023 End: 11-30-2023 Start: 07-31-2023 End: 08-09-2023 take 20 mg by mouth once daily 20 mg, Oral, Nightly, F irst dose on Sun07/31/23 at 2100 Start: 01-08-2023 End: 01-11-2023 take 20 mg by mouth once daily 20 mg, Oral, Daily, Fir st dose on Sun01/08/23 at 1305 Start: 08-02-2022 End: 08-07-2022 take 20 mg by mouth once daily 20 mg, Oral, Nightly, F irst dose on Sun08/02/22 at 2100 Start: 06-09-2022 End: 06-16-2022 take 20 mg by mouth once daily 20 mg, Oral, Daily, Fir [facility] dose on Sun06/09/22 at 1930 Start: 03-09-2021 End: 03-21-2021 take 20 mg by mouth once daily 20 mg, Oral, DAILY, [facility]ir [facility] dose (after last modification) on Sun03/22/21 at 0900 Start: 08-14-2019 take 1 tablet by fito once daily at bedtime atorvastatin 10 mg oral tablet ; 1 tab(s) orally once a day (at bedtime) Quantity: 0 Refills: 0 Ordered: 17-Mar-2020 Jonathan Vanessa Start: 14-Aug-2019 Status: Other Generic Substitution Allowed baclofen 10 mg oral tablet (20 sources) gamma-Aminobutyric Acid-ergic Agonist Start: 01-29-2025 End: 02-04-2025 take 5 mg by mouth three times daily 5 mg, Oral, 3 times daily, First dose on Sun01/29/25 at 1400 Start: 11-23-2023 End: 11-30-2023 Start: 07-31-2023 End: 08-09-2023 take 5 mg by mouth three times daily 5 mg, Oral, 3 times daily, First dose on Sun07/31/23 at 0900, Recovery & On Unit, On hold since Sun08/06/2023 at 0029 until manually unheld Start: 01-08-2023 End: 01-11-2023 baclofen (Lioresal) tablet 5 mg Start: 08-02-2022 End: 08-07-2022 take 5 mg by mouth once daily 5 mg, Oral, Daily, First dose on Sun08/02/22 at 2015 Start: 06-09-2022 End: 06-16-2022 take 5 mg by mouth twice daily 5 mg, Oral, 2 times edi ly, First dose on Sun06/09/22 at 2100 Start: 04-14-2021 take 1 tablet by fito three times daily baclofen (Lioresal) 5 MG tablet Take 1 tablet by mouth 3 times daily. 04/14/2021 Active Start: 04-14-2021 take 1 tablet by fito once daily baclofen (Lioresal) 5 MG tablet Take 1 tablet by mouth daily. 0 04/14/2021 Active Start: 04-14-2021 take 1 tablet by fito twice daily baclofen (Lioresal) 5 MG tablet Take 1 tablet by mouth 2 times daily. 0 04/14/2021 Active Start: 03-26-2021 take 5 mg by mouth twice daily 5 mg, Oral, 2 TIMES DAILY, First dose (after last modification) on Sun03/26/21 at 2100 Start: 03-16-2021 End: 03-26-2021 take 5 mg by mouth three times daily 5 mg, Oral, 3 TIMES DAILY, First dose (after last modification) on Sun03/16/21 at 0900 Start: 03-08-2021 End: 03-16-2021 take 20 mg by mouth three times daily 20 mg, Oral, 3 TIMES DAILY, First dose on Sun03/08/21 at 2130 Start: 08-14-2019 take 2 tablets by mo [facility] three times daily baclofen 10 mg oral tablet ; 2 tab(s) orally 3 times a day Quantity: 0 Refills: 0 Ordered: 02-Feb-2021 Neelima Real Start: 14-Aug-2019 Generic Substitution Allowed End: 04-14-2021 take 1 tablet by fito three times daily baclofen 10 mg oral tablet ; 1 tab(s) orally 3 times a day Quantity: 0 Refills: 0 Ordered: 05-Aug-2019 Nany Mohamud Status: Discontinued Generic Substitution Allowed bisacodyl 10 mg rectal suppository (2 sources) Stimulant Laxative Start: 07-31-2023 End: 08-09-2023 take 10 mg rectal route twice daily 10 mg, Rectal, 2 times daily, First dose on Sun07/31/23 at 0600 bumetanide 1 mg oral tablet (20 sources) Loop Diuretic Start: 08-07-2023 End: 02-04-2025 take 1 mg by mouth twice daily 1 mg, Oral, 2 times daily, First dose on Sun01/29/25 at 1500 Start: 03-08-2021 End: 04-13-2021 take 0.5 mg by mouth twice daily 0.5 mg, Oral, 2 TIMES DAILY, First dose on Sun03/08/21 at 2130 take 1 tablet by fito twice daily bumetanide 1 mg oral tablet ; 1 tab(s) orally 2 times a day Quantity: 0 Refills: 0 Ordered: 05-Aug-2019 Nany Mohamud Status: Discontinued Generic Substitution Allowed calcium carbonate 500 mg chewable tablet (3 sources) End: 06-16-2022 calcium carbonate 1250 mg / cholecalciferol 200 unt oral tablet (20 sources) Vitamin D Start: 01-08-2023 End: 01-11-2023 take 1 tablet by mouth once daily 1 tablet, Oral, Daily, First dose on Sun01/08/23 at 1305 Start: 08-02-2022 End: 08-07-2022 take 1 tablet by mouth once daily 1 tablet, Oral, Sharan y, First dose on Sun08/02/22 at 2015 Start: 03-22-2021 take 1 tablet by mouth once da cosmo 1 tablet, Oral, DAILY, First dose (after last modification) on Sun03/22/21 at 0900 Start: 03-16-2021 End: 03-21-2021 1 tablet, Per G Tube, DAILY, First dose (after last modification) on Sun03/16/21 at 0900 Start: 03-09-2021 End: 03-15-2021 take 1 tablet by mouth once daily 1 tablet, Oral, SHARAN Y, First dose on Sun03/09/21 at 0900 calcium chloride 0.0014 meq/ml / potassium chloride 0.004 meq/ml / sodium chloride 0.103 meq/ml / sodium lactate 0.028 meq/ml injectable solution (20 sources) Start: 02-03-2025 End: 02-04-2025 take 100 mL intravenously every hour 100 mL/hr, IntraVENous, Continuous, Starting on Sun02/03/25 at 1815 Start: 10-09-2024 End: 10-10-2024 Start: 01-03-2024 End: 01-03-2024 take 125 mL intravenously every hour 125 mL/hr, IntraVENous, Continuous, Starting on Sun01/03/24 at 1415, Recovery (only) Start: 11-23-2023 End: 11-24-2023 Start: 09-27-2023 End: 09-27-2023 take 50 mL intravenously every hour 50 mL/hr, IntraVEN ous, Continuous, Starting on Sun09/27/23 at 1015, Preprocedure, Upon admission to sameday - please start iv if patient does not have iv access. Use 500ml NS for patients on dialysis. Start: 07-30-2023 End: 08-01-2023 500 mL, IntraVENous, at 250 mL/hr, Administer over 2 Hours, Once, On 07/30/23 at 2330, For 1 dose Start: 06-10-2022 End: 06-10-2022 1,000 mL, IntraVENous, at 50 0 mL/hr, Administer over 2 Hours, Once, On 06/10/22 at 1100, For 1 dose Start: 06-09-2022 End: 06-12-2022 take 100 mL intravenously every hour 100 mL/hr, IntraVENous, Continuous, Starting on 06/11/22 at 0530 Start: 03-14-2021 End: 03-15-2021 500 mL, IntraVENous, at 250 mL/hr, Administer over 2 Hours, ONCE, On Tu03/15/21 at 0330, For 1 dose 100 ml calcium gluconate 20 mg/ml injection (6 sources) Start: 08-04-2023 End: 08-04-2023 2,000 mg, IntraVENous, at 50 mL/hr, Administer over 2 Hours, Once, On 08/04/23 at 0530, For 1 dose, premix bag Start: 07-31-2023 End: 08-01-2023 2,000 mg, IntraVENous, at 50 mL/hr, Administer over 2 Hours, Once, On 07/31/23 at 2245, For 1 dose, premix bag ceFAZolin 2000 mg injection (1 source) Cephalosporin Antibacterial Start: 03-21-2021 End: 03-21-2021 IntraVENous, CONTINUOUS PRN, Starting on Sun03/21/21 at 1616, Until Sun03/21/21 at 1616, Pre-op (day of surgery) cephalexin 250 mg oral capsule (1 source) Cephalosporin Antibacterial Start: 04-11-2021 End: 04-11-2021 take 1 dose by mouth four times daily 250 mg, Oral, EVERY 6 HOURS SCHEDULED (4 times per day), First dose on Sun04/11/21 at 0000 chlorhexidine gluconate 1.2 mg/ml mouthwash (1 source) Start: 03-15-2021 End: 03-20-2021 take 15 mL by mouth twice daily 15 mL, Mouth/Throat, 2 TIMES DAILY, First dose on Sun03/15/21 at 2330 For mechanical ventilation care. cholecalciferol 9.52 unt/ml / glucose 357 mg/ml oral gel (20 sources) Vitamin D Start: 01-29-2025 End: 02-04-2025 Start: 10-09-2024 End: 10-18-2024 Start: 01-03-2024 End: 01-03-2024 15 g, Oral, As needed, low b lood sugar, Starting on [place] 01/03/24 at 1026, Preprocedure, If blood glucose less than 50 mg/dL and patient ALERT and NOT NPO, give 2 tubes glucose gel. If blood glucose less than 70 mg/dL and patient ALERT and NOT NPO, give 1 tube glucose gel. Repeat blood glucose in 15 minutes. If blood glucose is less than 70 mg/dL, repeat treatment and recheck blood glucose in 15 minutes x2 and notify provider. Start: 11-23-2023 End: 11-30-2023 Start: 09-27-2023 End: 09-27-2023 15 g, Oral, As needed, low b lood sugar, Starting on [place] 09/27/23 at 1021, Preprocedure, If blood glucose less than 50 mg/dL and patient ALERT and NOT NPO, give 2 tubes glucose gel. If blood glucose less than 70 mg/dL and patient ALERT and NOT NPO, give 1 tube glucose gel. Repeat blood glucose in 15 minutes. If blood glucose is less than 70 mg/dL, repeat treatment and recheck blood glucose in 15 minutes x2 and notify provider. Start: 07-30-2023 End: 08-09-2023 15 g, Oral, As needed, low b lood sugar, Starting on Sun07/30/23 at 2143, If blood glucose less than 50 mg/dL and patient ALERT and NOT NPO, give 2 tubes glucose gel. If blood glucose less than 70 mg/dL and patient ALERT and NOT NPO, give 1 tube glucose gel. Repeat blood glucose in 15 minutes. If blood glucose is less than 70 mg/dL, repeat treatment and recheck blood glucose in 15 minutes x2 and notify provider. Start: 01-08-2023 End: 01-11-2023 15 g, Oral, As needed, low b lood sugar, Starting on Sun01/08/23 at 1300, If blood glucose less than 50 mg/dL and patient ALERT and NOT NPO, give 2 tubes glucose gel. If blood glucose less than 70 mg/dL and patient ALERT and NOT NPO, give 1 tube glucose gel. Repeat blood glucose in 15 minutes. If blood glucose is less than 70 mg/dL, repeat treatment and recheck blood glucose in 15 minutes x2 and notify provider. Start: 08-02-2022 End: 08-07-2022 15 g, Oral, As needed, low b lood sugar, Starting on Sun08/02/22 at 2009 If blood glucose less than 50 mg/dL and patient ALERT and NOT NPO, give 2 tubes glucose gel. If blood glucose less than 70 mg/dL and patient ALERT and NOT NPO, give 1 tube glucose gel. Repeat blood glucose in 15 minutes. If blood glucose is less than 70 mg/dL, repeat treatment and recheck blood glucose in 15 minutes x2 and notify provider. Start: 06-09-2022 End: 06-16-2022 15 g, Oral, As needed, low b lood sugar, Starting on Sun06/09/22 at 1602 If blood glucose less than 50 mg/dL and patient ALERT and NOT NPO, give 2 tubes glucose gel. If blood glucose less than 70 mg/dL and patient ALERT and NOT NPO, give 1 tube glucose gel. Repeat blood glucose in 15 minutes. If blood glucose is less than 70 mg/dL, repeat treatment and recheck blood glucose in 15 minutes x2 and notify provider. 100 ml dexmedetomidine 0.004 mg/ml injection (1 source) Central alpha-2 Adrenergic Agonist Start: 03-18-2021 End: 03-19-2021 take 10-69.9 mL intravenously every hour 0.2-1.4 mcg/kg/hr 199.6 kg (9.98-69.86 mL/hr, rounded to 10-69.9 mL/hr), IntraVENous, CONTINUOUS, Starting on Sun03/18/21 at 1300 For sedation, titrate to RASS +1 to -1 Dose Range: 0.2 to 1.4 mcg/kg/hr Initial dose 0.2 mcg/kg/hr Max dose: 1.4 mcg/kg/hr Contact physician if max dose does not achieve desired response If RASS 1 or more points below goal, decrease dose by 0.1 mcg/kg/hr no faster than every 30 min If RASS at goal, continue same rate If RASS 1 or more points above goal, increase dose by 0.1 mcg/kg/hr no faster than every 30 min 1 ml diphenhydrAMINE hydrochloride 50 mg/ml cartridge (2 sources) Histamine-1 Receptor Antagonist Start: 01-03-2024 End: 01-03-2024 12.5 mg, IntraVENous, Once PRN, itching, Starting on Sun01/03/24 at 1404, For 1 dose, Recovery (only) docusate sodium 100 mg oral capsule (4 sources) Start: 03-08-2021 End: 04-06-2021 take 100 mg by mouth twice daily 100 mg, Oral, 2 TIMES DAILY, First dose (after last modification) on Sun03/21/21 at 2100 Do not crush or break. docusate sodium 50 mg / sennosides, skilled nursing 8.6 mg oral tablet (20 sources) Start: 01-29-2025 End: 02-04-2025 take 2 tablets by mouth once daily 2 tablet, Oral, Nightly, First dose on Sun01/29/25 at 2100 Start: 07-31-2023 End: 08-09-2023 take 2 tablets by mouth twice daily 2 tablet, Oral, 2 times daily, First dose on Sun07/31/23 at 0600 Start: 08-02-2022 End: 08-07-2022 take 1 tablet by mouth once daily 1 tablet, Oral, Nightly, First dose on Sun08/02/22 at 2100 Start: 04-06-2021 take 2 tablets by mo uth once daily 2 tablet, Oral, DAILY, First dose on Sun04/06/21 at 1700 Start: 04-06-2021 End: 01-11-2023 senna-docusate (Helena-Colace) 8.6-50 MG tablet Take 100 tablets by mouth Every 24 hours. 04/06/2021 Active Start: 04-06-2021 End: 10-18-2024 take 2 tablets by [facility] twice daily Senna Plus 50 mg-8.6 mg oral tablet ; 2 tab(s) orally 2 times a day Quantity: 0 Refills: 0 Ordered: 02-Feb-2021 Neelima Real Generic Substitution Allowed donepezil hydrochloride 5 mg oral tablet (20 sources) Start: 01-29-2025 End: 02-04-2025 take 10 mg by mouth once daily 10 mg, Oral, Nightly, First dose on Sun01/29/25 at 2099 Start: 10-09-2024 End: 10-18-2024 Start: 11-23-2023 End: 11-30-2023 Start: 07-31-2023 End: 08-09-2023 take 10 mg by mouth once daily 10 mg, Oral, Nightly, F irst dose on Sun07/31/23 at 2099 Start: 01-08-2023 End: 01-11-2023 take 10 mg by mouth once daily 10 mg, Oral, Nightly, F irst dose on Sun01/08/23 at 2100 Start: 08-02-2022 End: 08-07-2022 take 10 mg by mouth once daily 10 mg, Oral, Nightly, F irst dose on Sun08/02/22 at 2099 Start: 04-15-2022 End: 08-07-2022 donepezil (Aricept) 5 MG tab let Start: 03-08-2021 End: 03-21-2021 take 5 mg by mouth once daily 5 mg, Oral, NIGHTLY, Fir st dose (after last modification) on Sun03/21/21 at 2100 doxycycline hyclate 100 mg oral tablet (8 sources) Tetracycline-class Drug Start: 03-23-2022 End: 08-07-2022 doxycycline (Vibra-Tabs) 100 MG tablet 0.6 ml enoxaparin sodium 100 mg/ml prefilled syringe (2 sources) Low Molecular Weight Heparin Start: 03-09-2021 End: 04-08-2021 inject 60 mg by subcutaneous injection twice daily 60 mg, SubCUTAneous, 2 TIMES DAILY, First dose (after last modification) on Sun03/09/21 at 2100 1.7 ml EPINEPHrine 0.01 mg/ml / lidocaine hydrochloride 20 mg/ml cartridge (3 sources) Antiarrhythmic, alpha-Adrenergic Agonist, beta-Adrenergic Agonist, Catecholamine, Amide Local Anesthetic Start: 06-15-2022 End: 06-15-2022 As needed, Starting on [place] 06/15/22 at 1414, Intraprocedure Start: 03-21-2021 End: 03-21-2021 ONCE PRN, Starting on Sun at 1602, For 1 dose ertapenem (INVanz) 1,000 mg in sodium chloride 0.9 % 50 mL IVPB Mini-Bag Plus (2 sources) Start: 08-04-2022 End: 08-06-2022 ertapenem (INVanz) 1,000 mg in sodium chloride 0.9 % 50 mL IVPB Mini-Bag Plus famotidine 20 mg oral tablet (2 sources) Histamine-2 Receptor Antagonist Start: 01-08-2023 End: 01-11-2023 take 20 mg by mouth once daily 20 mg, Oral, Daily, First dose on Sun01/08/23 at 1305 2 ml fentaNYL 0.05 mg/ml injection (10 sources) Opioid Agonist Start: 10-09-2024 End: 10-09-2024 Start: 10-09-2024 End: 10-09-2024 Start: 10-09-2024 End: 10-11-2024 Start: 01-03-2024 End: 01-03-2024 25 mcg, IntraVENous, Every 5 min PRN, moderate pain (4-6), Starting on [place] 01/03/24 at 1404, For 3 doses, Recovery (only), Phase I and Phase II- Initial therapy for moderate pain (4-6). Restricted to a 90 minute time frame starting when the patient can verbally state their pain score. If after 2 doses the pain score does not decrease by more than one point, then call the provider. If oral meds are utilized, do not return to initial therapy medications. Start: 07-31-2023 End: 07-31-2023 IntraVENous, Code/trauma/sed ation medication, Starting on Sun07/31/23 at 0429 Start: 03-21-2021 End: 03-21-2021 ONCE PRN, Starting on Sun at 1601, For 1 dose Start: 03-15-2021 End: 03-20-2021 50 mcg, IntraVENous, EVERY 1 5 MIN PRN, Pain, Starting on Sun03/15/21 at 2304 If oral and IV narcotics ordered, use oral first and only use IV if oral is ineffective or cannot take oral. Do Not give oral and IV within 1 hour of each other unless specifically ordered. ferrous sulfate 325 mg oral tablet (16 sources) Start: 01-09-2023 End: 01-11-2023 take 325 mg by mouth once daily at breakfast 325 mg, Oral, Daily with breakfast, First dose on Sun01/09/23 at 0800 Start: 08-03-2022 End: 08-07-2022 take 325 mg by mouth once daily at breakfast 325 mg, Oral, Daily with breakfast, First dose on Sun08/03/22 at 0800 Start: 06-16-2022 End: 06-16-2023 take 1 tablet by mouth once daily at breakfast ferrous sulfate 325 (65 Fe) MG EC tablet Take 1 tablet (325 mg) by mouth daily (with breakfast). Do not crush, chew, or split. 30 tablet 06/16/2022 06/16/2023 Active 4 ml furosemide 10 mg/ml injection (20 sources) Loop Diuretic Start: 08-04-2023 End: 08-05-2023 80 mg, IntraVENous, Once, On Sun08/05/23 at 0415, For 1 dose Start: 08-04-2023 End: 08-04-2023 40 mg, IntraVENous, Once, On 08/04/23 at 0730, For 1 dose Start: 08-02-2023 End: 08-03-2023 80 mg, IntraVENous, Once, On Sun08/03/23 at 0600, For 1 dose Start: 08-02-2023 End: 08-02-2023 40 mg, IntraVENous, Once, On [place] 08/02/23 at 1030, For 1 dose Start: 07-11-2022 End: 08-09-2023 Start: 07-11-2022 End: 08-07-2022 take 1 tablet by mouth in the morning furosemide (Lasix) 40 MG tablet Take 40 mg by mouth in the morning and 40 mg in the evening. 0 07/11/2022 Active Start: 08-14-2019 take 1 tablet by fito th twice daily furosemide 40 mg oral tablet ; 1 tab(s) orally 2 times a day Quantity: 0 Refills: 0 Ordered: 14-Aug-2019 Pasha Hay Start: 14-Aug-2019 Status: Other Generic Substitution Allowed gabapentin 300 mg oral capsule (20 sources) Anti-epileptic Agent Start: 01-29-2025 End: 02-04-2025 take 300 mg by mouth three times daily 300 mg, Oral, 3 times daily, First dose on Sun01/29/25 at 1400 Start: 10-09-2024 End: 10-18-2024 Start: 11-23-2023 End: 11-30-2023 Start: 08-09-2023 End: 10-08-2023 take 3 capsules by mouth three times daily gabapentin (Neurontin) 100 MG capsule Take 3 capsules (300 mg) by mouth 3 times daily. 180 capsule 2 08/09/2023 Active Start: 08-07-2023 End: 08-09-2023 take 300 mg by mouth three times daily 300 mg, Oral, 3 times daily, First dose (after last modification) on Sun08/07/23 at 1400, Recovery & On Unit Start: 01-11-2023 End: 10-08-2023 Start: 01-09-2023 End: 08-09-2023 take 200 mg by mouth three times daily 200 mg, Oral, 3 times daily, First dose on Sun07/31/23 at 0900, Recovery & On Unit Start: 06-09-2022 End: 06-16-2022 take 100 mg by mouth twice daily 100 mg, Oral, 2 times daily, First dose on Sun06/09/22 at 2100 Start: 03-18-2021 End: 07-13-2021 Start: 08-14-2019 End: 04-14-2021 take 300 mg by mouth twice daily 300 mg, Oral, 2 TIMES DAILY, First dose on Sun03/08/21 at 2130 End: 01-11-2023 take 1 capsule by mouth three times daily gabapentin (Neurontin) 100 MG capsule Take 100 mg by mouth 3 times daily. 0 01/11/2023 Discontinued (Stop taking at discharge) take 1 tablet by fito th four times daily gabapentin 600 mg oral tablet ; 1 tab(s) orally 4 times a day Quantity: 0 Refills: 0 Ordered: 05-Aug-2019 Nany Mohamud Status: Discontinued Generic Substitution Allowed glucagon (rdna) 1 mg injecti on (20 sources) Antihypoglycemic Agent Start: 01-29-2025 End: 02-04-2025 Start: 10-09-2024 End: 10-18-2024 Start: 01-03-2024 End: 01-03-2024 1 mg, IntraMUSCular, PRN, lo w blood sugar, Blood glucose less than 70 mg/dL and patient NOT ALERT or NPO and does not have IV access., Starting on [place] 01/03/24 at 0948, Preprocedure, After administration, attempt intravenous access and start D5W at 100 mL/hr. Repeat blood glucose in 15 minutes x2 and notify provider. Start: 11-23-2023 End: 11-30-2023 Start: 09-27-2023 End: 09-27-2023 1 mg, IntraMUSCular, PRN, lo w blood sugar, Blood glucose less than 70 mg/dL and patient NOT ALERT or NPO and does not have IV access., Starting on [place] 09/27/23 at 1021, Preprocedure, After administration, attempt intravenous access and start D5W at 100 mL/hr. Repeat blood glucose in 15 minutes x2 and notify provider. Start: 07-30-2023 End: 08-09-2023 1 mg, IntraMUSCular, PRN, lo w blood sugar, Blood glucose less than 70 mg/dL and patient NOT ALERT or NPO and does not have IV access., Starting on [facility] 07/30/23 at 2143, After administration, attempt intravenous access and start D5W at 100 mL/hr. Repeat blood glucose in 15 minutes x2 and notify provider. Start: 01-08-2023 End: 01-11-2023 1 mg, IntraMUSCular, PRN, lo w blood sugar, Blood glucose less than 70 mg/dL and patient NOT ALERT or NPO and does not have IV access., Starting on 01/08/23 at 1300, After administration, attempt intravenous access and start D5W at 100 mL/hr. Repeat blood glucose in 15 minutes x2 and notify provider. Start: 08-02-2022 End: 08-07-2022 take 1 mL intravenously every hour 1 mg, IntraMUSCular , PRN, low blood sugar, Blood glucose less than 70 mg/dL and patient NOT ALERT or NPO and does not have IV access., Starting on 08/02/22 at 2009 After administration, attempt intravenous access and start D5W at 100 mL/hr. Repeat blood glucose in 15 minutes x2 and notify provider. Start: 06-09-2022 End: 06-16-2022 take 1 mL intravenously every hour 1 mg, IntraMUSCular , PRN, low blood sugar, Blood glucose less than 70 mg/dL and patient NOT ALERT or NPO and does not have IV access., Starting on Sun06/09/22 at 1602 After administration, attempt intravenous access and start D5W at 100 mL/hr. Repeat blood glucose in 15 minutes x2 and notify provider. Start: 03-08-2021 take 1 mL intravenously every hour 1 mg, IntraMUSCular, PRN, Low blood sugar, Blood glucose less than 70 mg/dL and patient NOT ALERT or NPO and does not have IV access., Starting on 04/09/21 at 0806 After administration, attempt intravenous access and start D5W at 100 mL/hr. Repeat blood glucose in 15 minutes x2 and notify provider. 50 ml glucose 50 mg/ml injec tion (20 sources) Start: 01-29-2025 End: 02-04-2025 Start: 01-29-2025 End: 02-04-2025 Start: 10-09-2024 End: 10-18-2024 Start: 01-03-2024 End: 01-03-2024 100 mL/hr, IntraVENous, PRN, Blood sugar less than 70mg/dL, Starting on [place] 01/03/24 at 1026, Preprocedure, Start infusion following administration of dextrose 50% or glucagon. Start: 01-03-2024 End: 01-03-2024 12.5 g, IntraVENous, PRN, lo w blood sugar, Blood glucose less than 70 mg/dL and patient NOT ALERT or NPO., Starting on [place] 01/03/24 at 1026, Preprocedure, If patient does not respond within 5 minutes, repeat dose x1. Start D5W at 100 mL/hour until ordering provider can be reached. Repeat blood glucose in 15 minutes. If blood glucose is less than 70 mg/dL, repeat treatment and recheck blood glucose in 15 minutes x2. If using Glucostabilizer, dose as instructed per system. Start: 11-23-2023 End: 11-30-2023 Start: 11-23-2023 End: 11-30-2023 Start: 09-27-2023 End: 09-27-2023 12.5 g, IntraVENous, PRN, lo w blood sugar, Blood glucose less than 70 mg/dL and patient NOT ALERT or NPO., Starting on [place] 09/27/23 at 1021, Preprocedure, If patient does not respond within 5 minutes, repeat dose x1. Start D5W at 100 mL/hour until ordering provider can be reached. Repeat blood glucose in 15 minutes. If blood glucose is less than 70 mg/dL, repeat treatment and recheck blood glucose in 15 minutes x2. If using Glucostabilizer, dose as instructed per system. Start: 09-27-2023 End: 09-27-2023 100 mL/hr, IntraVENous, PRN, Blood sugar less than 70mg/dL, Starting on [place] 09/27/23 at 1021, Preprocedure, Start infusion following administration of dextrose 50% or glucagon. Start: 07-30-2023 End: 08-09-2023 100 mL/hr, IntraVENous, PRN, Blood sugar less than 70mg/dL, Starting on Sun07/30/23 at 2143, Start infusion following administration of dextrose 50% or glucagon. Start: 07-30-2023 End: 08-09-2023 12.5 g, IntraVENous, PRN, lo w blood sugar, Blood glucose less than 70 mg/dL and patient NOT ALERT or NPO., Starting on Sun07/30/23 at 2143, If patient does not respond within 5 minutes, repeat dose x1. Start D5W at 100 mL/hour until ordering provider can be reached. Repeat blood glucose in 15 minutes. If blood glucose is less than 70 mg/dL, repeat treatment and recheck blood glucose in 15 minutes x2. If using Glucostabilizer, dose as instructed per system. Start: 01-08-2023 End: 01-11-2023 12.5 g, IntraVENous, PRN, lo w blood sugar, Blood glucose less than 70 mg/dL and patient NOT ALERT or NPO., Starting on Sun01/08/23 at 1300, If patient does not respond within 5 minutes, repeat dose x1. Start D5W at 100 mL/hour until ordering provider can be reached. Repeat blood glucose in 15 minutes. If blood glucose is less than 70 mg/dL, repeat treatment and recheck blood glucose in 15 minutes x2. If using Glucostabilizer, dose as instructed per system. Start: 01-08-2023 End: 01-11-2023 100 mL/hr, IntraVENous, PRN, Blood sugar less than 70mg/dL, Starting on Sun01/08/23 at 1300, Start infusion following administration of dextrose 50% or glucagon. Start: 08-02-2022 End: 08-07-2022 12.5 g, IntraVENous, PRN, lo w blood sugar, Blood glucose less than 70 mg/dL and patient NOT ALERT or NPO., Starting on Sun08/02/22 at 2008 If patient does not respond within 5 minutes, repeat dose x1. Start D5W at 100 mL/hour until ordering provider can be reached. Repeat blood glucose in 15 minutes. If blood glucose is less than 70 mg/dL, repeat treatment and recheck blood glucose in 15 minutes x2. If using Glucostabilizer, dose as instructed per system. Start: 08-02-2022 End: 08-07-2022 100 mL/hr, IntraVENous, PRN, Blood sugar less than 70mg/dL, Starting on Sun08/02/22 at 2008 Start infusion following administration of dextrose 50% or glucagon. Start: 06-09-2022 End: 06-16-2022 12.5 g, IntraVENous, PRN, lo w blood sugar, Blood glucose less than 70 mg/dL and patient NOT ALERT or NPO., Starting on Sun06/09/22 at 1602 If patient does not respond within 5 minutes, repeat dose x1. Start D5W at 100 mL/hour until ordering provider can be reached. Repeat blood glucose in 15 minutes. If blood glucose is less than 70 mg/dL, repeat treatment and recheck blood glucose in 15 minutes x2. If using Glucostabilizer, dose as instructed per system. Start: 06-09-2022 End: 06-16-2022 100 mL/hr, IntraVENous, PRN, Blood sugar less than 70mg/dL, Starting on Sun06/09/22 at 1602 Start infusion following administration of dextrose 50% or glucagon. Start: 04-09-2021 100 mL/hr, Int raVENous, PRN, Low blood sugar, Starting on 04/09/21 at 0806 Start infusion following administration of dextrose 50% or glucagon. Start: 03-08-2021 15 g, Oral, NJ N, Low blood sugar, Starting on 04/09/21 at 0806 If blood glucose less than 50 mg/dL and patient ALERT and TOLERATING PO, give 2 tubes glucose gel. If blood glucose less than 70 mg/dL and patient ALERT and TOLERATING PO, give 1 tube glucose gel. Repeat blood glucose in 15 minutes. If blood glucose is less than 70 mg/dL, repeat treatment and recheck blood glucose in 15 minutes x2 and notify provider. Start: 03-08-2021 12.5 g, IntraV ENous, PRN, Low blood sugar, Blood glucose less than 70 mg/dL and patient NOT ALERT or NPO., Starting on 04/09/21 at 0806 If patient does not respond within 5 minutes, repeat dose x1. Start D5W at 100 mL/hour until ordering provider can be reached. Repeat blood glucose in 15 minutes. If blood glucose is less than 70 mg/dL, repeat treatment and recheck blood glucose in 15 minutes x2. If using Glucostabilizer, dose as instructed per system. Start: 03-08-2021 100 mL/hr, Int raVENous, PRN, Low blood sugar, Starting on Sun03/08/21 at 2036 Start infusion following administration of dextrose 50% or glucagon. guaiFENesin 20 mg/ml oral solution (3 sources) End: 06-16-2022 take 10 mg by mouth every four hours as needed for cough heparin sodium, porcine 100 unt/ml injectable solution (20 sources) Unfractionated Heparin, Anti-coagulant Start: 08-06-2023 End: 08-09-2023 250 Units, IntraCATHeter, PRN, line care, after blood draws and after infusion, Starting on Sun08/06/23 at 1844, Do NOT administer to lumens with continuous fluids currently infusing. Line Care. Use 10 mL or larger syringe. Start: 07-30-2023 End: 07-31-2023 4,000 Units, IntraVENous, On ce, On Sun07/30/23 at 2345, For 1 dose, Initial one time bolus Start: 07-30-2023 End: 08-07-2023 5-30 Units/kg/hr 159 kg (7.95-47.7 mL/hr, rounded to 8-47.7 mL/hr), IntraVENous, Continuous, Starting on Sun07/30/23 at 2345, LOW Dose Heparin Weight Based Dosing (CAD/STEMI/NSTEMI/AFIB/ECMO) >>>>Initial dose: 6 units/kg/hr 95.9 Hold heparin for 60 min Decrease infusion by 2 units/kg/hr - notify prescriber; Check aPTT: 6 hours after initiation and 6 hours after every dose change - every 12 hrs x 1 day after 2 consecutive therapeutic aPTT - daily after every 12 hrs x 1 day is complete. Start: 07-30-2023 End: 08-07-2023 2,000 Units, IntraVENous, As needed, heparin dosing algorithm, Starting on Sun07/30/23 at 2333, Half dose re-bolus based on pharmacy algorithm Start: 06-16-2022 End: 06-16-2022 take 100 [IU] intraluminal route every twelve hours 100 Units, IntraCATHeter, Every 12 hours, First dose on Sun06/16/22 at 1745 Line Care. Use 10 mL or larger syringe. Start: 06-16-2022 End: 06-16-2022 100 Units, IntraCATHeter, [place] N, line care, after infusions or after blood draws, Starting on Sun06/16/22 at 1732 Use 10 mL or larger syringe. Start: 06-09-2022 End: 06-13-2022 take 1000 [IU] intravenously every hour 5-30 Units/kg/hr 131 kg (6.55-39.3 mL/hr, rounded to 6.6-39.3 mL/hr), IntraVENous, Continuous, Starting on Sun06/09/22 at 2030 LOW Dose Heparin Weight Based Dosing (CAD/STEMI/NSTEMI/AFIB/ECMO)&nbsp ; Bolus 60 units/kg IV x 1 (max 4000 units), then 12 units/kg/hr UNLESS due to patient weight rate exceeds 1000 units/hour (max initial rate) Initial rate for this patient: 7.6 units/kg/hr aPTT < 30 Heparin Full re-bolus Increase infusion by 2 units/kg/hr; notify prescriber aPTT 30-49.9 Heparin Half re-bolus Increase infusion by 1 unit/kg/hr aPTT 50-70.9 No bolus No change aPTT 71-95.9 Hold heparin for 60 min Decrease infusion by 1 units/kg/hr aPTT > 95.9 Hold heparin for 60 min Decrease infusion by 2 units/kg/hr; notify prescriber Check aPTT 6 hours after initiation and 6 hours after every dose change; every 12 hrs x 1 day after 2 consecutive therapeutic aPTT; daily after every 12 hrs x 1 day is completed. Start: 06-09-2022 End: 06-13-2022 2,000 Units, IntraVENous, As needed, heparin dosing algorithm, Starting on Sun06/09/22 at 2024 Half dose re-bolus based on pharmacy algorithm Start: 03-27-2021 2,200 Units, I ntraCATHeter, PRN, Line Care, Dialysis, Starting on 03/27/21 at 1746 Start: 03-27-2021 2,100 Units, I ntraCATHeter, PRN, Line Care, Dialysis, Starting on 03/27/21 at 1746 Start: 03-17-2021 End: 03-27-2021 1,200 Units, IntraCATHeter, PRN, Line Care, Dialysis, Starting on [facility] 03/17/21 at 1933 Start: 03-17-2021 End: 03-27-2021 1,100 Units, IntraCATHeter, PRN, Line Care, Dialysis, Starting on [place] 03/17/21 at 1932 Start: 03-16-2021 End: 03-16-2021 1,100 Units, IntraCATHeter, ONCE PRN, Line Care, For hemodialysis system down vascular catheter, Starting on 03/16/21 at 0422, For 1 dose To VENOUS lumen. Use when system down. Dose based on lumen volume: 1,100 units = 1.1 mL 1,400 units = 1.4 mL 1,500 units = 1.5 mL 1,600 units = 1.6 mL 1,700 units = 1.7 mL 1,800 units = 1.8 mL Start: 03-14-2021 End: 04-08-2021 inject 1 dose by subcutaneous injection three times daily 5,000 Units, SubCUTAneous, EVERY 8 HOURS SCHEDULED (3 times per day), First dose on Sun03/14/21 at 1400 Start: 03-13-2021 End: 04-08-2021 250 Units, IntraCATHeter, EV SALVADOR 12 HOURS, First dose on 03/13/21 at 1600 Each lumen. Do NOT administer to lumens with continuous fluids currently infusing. Line Care. Use 10 mL or larger syringe. Start: 03-13-2021 250 Units, Int raCATHeter, PRN, Line Care, after blood draws and after infusion, Starting on 03/13/21 at 1527 Do NOT administer to lumens with continuous fluids currently infusing. Line Care. Use 10 mL or larger syringe. hydrocortisone 100 mg injection (10 sources) Corticosteroid Start: 08-03-2023 End: 08-04-2023 take 50 mg intravenously every twelve hours 50 mg, IntraVENous, Every 12 hours, First dose (after last modification) on Sun08/03/23 at 1300 Start: 08-02-2023 End: 08-03-2023 take 50 mg intravenously every eight hours 50 mg, IntraVENous, Every 8 hours, First dose (after last modification) on Sun08/02/23 at 0930 Start: 08-01-2023 End: 08-02-2023 take 50 mg intravenously every six hours 50 mg, IntraVENous, Every 6 hours, First dose on Sun08/01/23 at 0800 Start: 06-12-2022 End: 06-13-2022 take 25 mg intravenously every twelve hours 25 mg, IntraVENous, Every 12 hours, First dose (after last modification) on Sun06/12/22 at 2245 Start: 06-10-2022 End: 06-12-2022 take 50 mg intravenously every eight hours 50 mg, IntraVENous, Every 8 hours, First dose on 06/10/22 at 1030 1 ml HYDROmorphone hydrochlo ride 1 mg/ml cartridge (8 sources) Opioid Agonist Start: 10-10-2024 End: 10-10-2024 Start: 03-18-2021 End: 03-22-2021 take 0.5 mg by mouth every three hours as needed for pain 0.5 mg, IntraVENous, EVERY 3 HOURS PRN, Pain Moderate (4-6), Starting on Sun03/18/21 at 1245 If oral and IV narcotics ordered, use oral first and only use IV if oral is ineffective or cannot take oral. Do Not give oral and IV within 1 hour of each other unless specifically ordered. Start: 03-17-2021 End: 03-18-2021 take 1 mg by mouth every four hours 1 mg, IntraVENous, EVERY 4 HOURS, First dose (after last modification) on [place] 03/17/21 at 1215 If oral and IV narcotics ordered, use oral first and only use IV if oral is ineffective or cannot take oral. Do Not give oral and IV within 1 hour of each other unless specifically ordered. Start: 03-15-2021 End: 03-15-2021 take 0.5 mg by mouth once 0.5 mg, IntraVENous, ONCE, O n Sun03/15/21 at 0100, For 1 dose If oral and IV narcotics ordered, use oral first and only use IV if oral is ineffective or cannot take oral. Do Not give oral and IV within 1 hour of each other unless specifically ordered. Start: 03-15-2021 End: 03-17-2021 take 0.5 mg by mouth every two hours as needed for pain 0.5 mg, IntraVENous, EVERY 2 HOURS PRN, Pain Severe (7-10), Starting on Sun03/15/21 at 0045 If oral and IV narcotics ordered, use oral first and only use IV if oral is ineffective or cannot take oral. Do Not give oral and IV within 1 hour of each other unless specifically ordered. Start: 03-14-2021 End: 03-14-2021 Starting on Sun03/14/21 at 1320, For 1 dose Christina Chery: jacque beltre Start: 03-14-2021 End: 03-15-2021 take 0.5 mg by mouth every four hours as needed for pain 0.5 mg, IntraVENous, EVERY 4 HOURS PRN, Pain Severe (7-10), Starting on Sun03/14/21 at 1311 If oral and IV narcotics ordered, use oral first and only use IV if oral is ineffective or cannot take oral. Do Not give oral and IV within 1 hour of each other unless specifically ordered. 1 ml hyoscyamine sulfate 0.5 mg/ml injection (2 sources) Start: 08-06-2022 End: 08-07-2022 take 0.25 mg intravenously every four hours as needed for muscle spasms hyoscyamine (Levsin) injection 0.25 mg insulin glargine 100 unt/ml injectable solution (20 sources) Insulin Analog Start: 11-23-2023 End: 11-30-2023 Start: 08-09-2023 End: 02-04-2025 inject 30 [IU] by subcutaneous injection once daily 30 Units, SubCUTAneous, Nightly, First dose on Sun01/29/25 at 2100 Start: 07-30-2023 End: 07-31-2023 16 Units (rounded from 15.9 Units = 0.1 Units/kg 159 kg), SubCUTAneous, Nightly, First dose on Sun07/30/23 at 2145, Do not hold without physician order. , , On hold since Sun07/31/2023 at 0137 until manually unheld Start: 08-05-2022 End: 08-07-2022 insulin glargine (Lantus) injection 10 Units Start: 06-16-2022 End: 09-08-2023 inject 36 [IU] by subcutaneous injection once daily 36 Units, SubCUTAneous, Nightly, First dose on Sun08/07/23 at 2100 Start: 06-09-2022 End: 09-08-2023 Start: 04-13-2021 End: 06-16-2023 Start: 04-13-2021 insulin glargi ne (Lantus) 100 UNIT/ML injection 60 units 0 04/13/2021 Suspended Start: 04-12-2021 End: 04-13-2021 Start: 04-11-2021 End: 04-12-2021 inject 24 [IU] by subcutaneous injection once daily 24 Units, SubCUTAneous, NIGHTLY, First dose (after last modification) on Sun04/11/21 at 2099 Start: 04-10-2021 End: 04-11-2021 inject 20 [IU] by subcutaneous injection once daily 20 Units, SubCUTAneous, NIGHTLY, First dose (after last modification) on Sun04/10/21 at 2099 Start: 04-06-2021 End: 04-10-2021 inject 15 [IU] by subcutaneous injection once daily 15 Units, SubCUTAneous, NIGHTLY, First dose (after last modification) on Sun04/06/21 at 2099 Start: 04-02-2021 End: 04-06-2021 inject 14 [IU] by subcutaneous injection once daily 14 Units, SubCUTAneous, NIGHTLY, First dose (after last modification) on 04/02/21 at 2099 Start: 03-26-2021 End: 04-02-2021 inject 12 [IU] by subcutaneous injection once daily 12 Units, SubCUTAneous, NIGHTLY, First dose (after last modification) on 03/26/21 at 2099 Start: 03-24-2021 End: 03-26-2021 inject 10 [IU] by subcutaneous injection once daily 10 Units, SubCUTAneous, NIGHTLY, First dose (after last modification) on [place] 03/24/21 at 2099 Start: 03-21-2021 End: 03-24-2021 inject 8 [IU] by subcutaneous injection once daily 8 Units, SubCUTAneous, NIGHTLY, First dose (after last modification) on Sun03/21/21 at 2099 Start: 03-15-2021 End: 03-21-2021 inject 20 [IU] by subcutaneous injection once daily in the morning 20 Units, SubCUTAneous, EVERY MORNING, First dose (after last modification) on Sun03/15/21 at 0900 Start: 03-14-2021 End: 03-21-2021 inject 15 [IU] by subcutaneous injection once daily 15 Units, SubCUTAneous, NIGHTLY, First dose (after last modification) on Sun03/14/21 at 2100 Start: 03-11-2021 End: 03-14-2021 inject 30 [IU] by subcutaneous injection once daily 30 Units, SubCUTAneous, NIGHTLY, First dose (after last modification) on Sun03/11/21 at 2100 Start: 03-09-2021 End: 03-11-2021 inject 40 [IU] by subcutaneous injection once daily in the morning 40 Units, SubCUTAneous, EVERY MORNING, First dose on Sun03/09/21 at 0900 Start: 03-08-2021 End: 03-11-2021 inject 25 [IU] by subcutaneous injection once daily 25 Units, SubCUTAneous, NIGHTLY, First dose on Sun03/08/21 at 2100 inject 1 [IU] by sub cutaneous injection twice daily in the evening Lantus 100 units/mL subcutaneous solution ; unit(s) subcutaneous 2 times a day. 55 units in AM and 35 units in PM Quantity: 0 Refills: 0 Ordered: 02-Feb-2021 Neelima Real Generic Substitution Allowed Basaglar KwikPen 100 units/mL subcutaneous solution ; 15 unit(s) subcutaneous once a day (in the morning) Quantity: 0 Refills: 0 Ordered: 17-Mar-2020 Vanessa Castillo Status: Other Generic Substitution Allowed Basaglar KwikPen 100 units/mL subcutaneous solution ; 55 unit(s) subcutaneous once (at bedtime) Quantity: 0 Refills: 0 Ordered: 05-Aug-2019 Nany Mohamud Status: Discontinued Generic Substitution Allowed insulin isophane, human 100 unt/ml injectable suspension (8 sources) Start: 08-07-2023 End: 08-07-2023 inject 18 [IU] by subcutaneous injection every twelve hours 18 Units, SubCUTAneous, Every 12 hours, First dose (after last modification) on Sun08/07/23 at 1030 Start: 08-06-2023 End: 08-07-2023 inject 22 [IU] by subcutaneous injection every twelve hours 22 Units, SubCUTAneous, Every 12 hours, First dose (after last modification) on Sun08/06/23 at 1700 Start: 08-03-2023 End: 08-06-2023 inject 25 [IU] by subcutaneous injection every twelve hours 25 Units, SubCUTAneous, Every 12 hours, First dose (after last modification) on Sun08/03/23 at 1700 Start: 08-02-2023 End: 08-03-2023 inject 20 [IU] by subcutaneous injection every twelve hours 20 Units, SubCUTAneous, Every 12 hours, First dose on Sun08/02/23 at 1700 Insulin Lispro (Humalog) injection 0-12 Units (2 sources) Start: 01-29-2025 End: 02-04-2025 Insulin Lispro (Humalog) injection 0-12 Units insulin, regular, human 100 unt/ml injectable solution (16 sources) Insulin Start: 10-09-2024 End: 10-10-2024 Start: 08-03-2023 End: 08-06-2023 inject 6 [IU] by subcutaneous injection every six hours 6 Units, SubCUTAneous, Every 6 hours, First dose on Sun08/03/23 at 1800, Hold if tube feeding is stopped, notify endocrinology, , On hold since Sun08/06/2023 at 1046 until manually unheld Start: 07-31-2023 End: 08-02-2023 1-50 Units/hr (1-50 mL/hr), IntraVENous, Continuous, Starting on Sun07/31/23 at 0145, As guided by calculator flowsheet Low target: 120 High target: 160 Notify provider for blood glucose LESS than 100 mg/dL. BUD: 30 days at room temperature Start: 07-31-2023 End: 07-31-2023 inject 10 [IU] by subcutaneous injection once 10 Units, SubCUTAneous, Once, On Sun07/31/23 at 0015, For 1 dose Start: 06-10-2022 End: 06-10-2022 0-12 Units, SubCUTAneous, Ev salvador 6 hours, First dose on Sun06/10/22 at 0000 NPO Medium Dose Correction Algorithm Glucose: &n bsp; &nbs p; Dose: If LESS than 139 No Insulin 140-199 &nb sp; & nbsp; &nbsp ; 2 Units 200-249 &nb sp; & nbsp; &nbsp ; 4 Units 250-299 &nb sp; & amp;nbsp; & nbsp; 6 Units 300-349 &nb sp; & nbsp; &nbsp ; 8 Units 350-400 &nbsp ; &nb sp; & nbsp; 10 Units Above 400 & nbsp; &nbsp ; 12 Units Start: 03-16-2021 End: 03-21-2021 inject 3 [IU] by subcutaneous injection every six hours 3 Units, SubCUTAneous, EVERY 6 HOURS, First dose on Sun03/16/21 at 0000 labetalol hydrochloride 5 mg/ml injectable solution (3 sources) beta-Adrenergic Dyan Start: 07-30-2023 End: 08-09-2023 take 10 mg intravenously every four hours as needed for hypertension 10 mg, IntraVENous, Every 4 hours PRN, high blood pressure, 1st line for SBP >180, Starting on Sun07/30/23 at 2202 Start: 03-09-2021 End: 03-13-2021 10 mg, IntraVENous, EVERY 4 HOURS PRN, High Blood Pressure, Starting on Sun03/09/21 at 1029 Administer if SBP >160 labetalol (Normodyne,Trandat e) injection 5 mg (2 sources) Start: 01-03-2024 End: 01-03-2024 labetalol (Normodyne,Trandat e) injection 5 mg ammonium lactate 120 mg/ml topical lotion (20 sources) Start: 11-29-2023 End: 02-04-2025 ammonium lactate (Lac-Hydrin ) 12 % lotion Apply topically as needed for dry skin. 11/29/2023 02/04/2025 Discontinued (Stop taking at discharge) Start: 11-27-2023 End: 11-30-2023 Start: 08-01-2023 End: 08-09-2023 Topical, 2 times daily, Firs t dose on Sun08/01/23 at 2100, Apply twice daily to both feet and legs apply to dry scaling skin Start: 01-10-2023 End: 01-11-2023 ammonium lactate (Lac-Hydrin ) 12 % lotion Start: 08-04-2022 End: 08-07-2022 ammonium lactate (Lac-Hydrin ) 12 % lotion 10 ml lidocaine hydrochloride 10 mg/ml injection (9 sources) Antiarrhythmic, Amide Local Anesthetic Start: 08-06-2023 End: 08-06-2023 As needed, Starting on Sun08/06/23 at 1621, Intraprocedure Start: 06-15-2022 End: 06-15-2022 Infiltration, As needed, Sta rting on [place] 06/15/22 at 1409, Intraprocedure Start: 03-21-2021 End: 03-21-2021 ONCE PRN, Starting on Sun at 1555, For 1 dose Lidoderm 5% topi nasra film ; Apply topically to affected area once a day LEFT THIGH AND RIGHT HIP Quantity: 0 Refills: 0 Ordered: 05-Aug-2019 Nany Mohamud Status: Discontinued Generic Substitution Allowed lidocaine 4% pat ch ; Apply topically to affected area once a day (apply 1 to left thigh and 1 to right hip) Quantity: 0 Refills: 0 Ordered: 17-Mar-2020 Vanessa Castillo Generic Substitution Allowed lisinopril 10 mg oral tablet (20 sources) Angiotensin Converting Enzyme Inhibitor Start: 06-15-2022 End: 06-15-2022 take 20 mg by mouth once daily 20 mg, Oral, Daily, First dose (after last modification) on Sun06/15/22 at 0900 Start: 03-10-2021 End: 03-14-2021 take 5 mg by mouth once daily 5 mg, Oral, DAILY, First dose on Sun03/10/21 at 1045 Start: 08-14-2019 End: 08-09-2023 take 10 mg by mouth once daily 10 mg, Oral, Daily, Fir st dose on Sun06/13/22 at 1130 loperamide hydrochloride 2 mg oral capsule (8 sources) Opioid Agonist Start: 07-16-2021 End: 08-07-2022 loperamide (Imodium) 2 MG capsule LORazepam 0.5 mg oral tablet (9 sources) Benzodiazepine Start: 08-07-2023 End: 08-09-2023 take 0.5 mg by mouth every six hours as needed for anxiety 0.5 mg, Oral, Every 6 hours PRN, anxiety, Starting on Sun08/07/23 at 1004 Start: 04-10-2021 End: 04-10-2021 take 0.5 mg by mouth once 0.5 mg, Oral, ONCE, On Sun at 1300, For 1 dose Please give prior to inserting jose catheter Start: 04-03-2021 End: 04-04-2021 0.5 mg, IntraVENous, ONCE [place] N, Agitation, dressing change, Starting on Sun04/04/21 at 1309, For 1 dose For dressing change Start: 03-23-2021 End: 04-01-2021 0.5 mg, IntraVENous, 2 TIMES DAILY PRN, Other, Only with wound dressing changes, Starting on 03/23/21 at 1011 Only with wound dressing changes Start: 03-20-2021 End: 03-23-2021 0.5 mg, IntraVENous, EVERY 4 HOURS PRN, Agitation, Starting on 03/20/21 at 2104 take 1 tablet by fito th three times daily LORazepam (Ativan) 1 MG tablet Take 1 mg by mouth 3 times daily. Active melatonin 5 mg oral tablet (18 sources) Start: 10-10-2024 End: 10-18-2024 Start: 11-29-2023 take 2 tablets by mo uth once daily melatonin 3 MG tablet Take 2 tablets (6 mg) by mouth Nightly. 11/29/2023 Active Start: 11-23-2023 End: 11-30-2023 Start: 08-02-2022 End: 08-07-2022 take 3 mg by mouth once daily 3 mg, Oral, Nightly, Fir st dose on Sun08/02/22 at 2100 Start: 03-22-2021 meropenem (4 sources) Penem Antibacterial Start: 01-08-2023 End: 01-09-2023 take 2000 mg intravenously every eight hours 2,000 mg, IntraVENous, at 33.3 mL/hr, Administer over 3 Hours, Every 8 hours, First dose on 01/08/23 at 1630, premix bag, Suspected Indication (Select all that apply): Urinary Tract Infection Start: 01-08-2023 End: 01-08-2023 meropenem (Merrem) IVPB 2000 mg in 100 mL NS (compounded premix) meropenem (Merrem) 2,000 mg in sodium chloride 0.9 % 100 mL IVPB (4 sources) Start: 08-04-2022 End: 08-04-2022 take 2000 mg intravenously every eight hours meropenem (Merrem) 2,000 mg in sodium chloride 0.9 % 100 mL IVPB Start: 08-02-2022 End: 08-03-2022 take 2000 mg intravenously every eight hours meropenem (Merrem) 2,000 mg in sodium chloride 0.9 % 100 mL IVPB methylPREDNISolone 40 mg injection (2 sources) Corticosteroid Start: 08-05-2023 End: 08-05-2023 40 mg, IntraVENous, Once, On 08/05/23 at 1045, For 1 dose miconazole nitrate 0.02 mg/mg topical powder (20 sources) Azole Antifungal Start: 11-23-2023 End: 02-04-2025 apply 1 dose topically twice daily Topical, 2 times daily, First dose on Sun01/29/25 at 1325, Apply to: b/l groin Start: 07-31-2023 End: 08-09-2023 apply 1 dose topically twice daily Topical, 2 times daily, First dose on Sun07/31/23 at 0600 Start: 01-08-2023 End: 01-11-2023 miconazole (Micotin) 2 % pow sedrick Start: 03-11-2021 2 ml midazolam 1 mg/ml injec tion (9 sources) Benzodiazepine Start: 10-10-2024 End: 10-10-2024 Start: 10-10-2024 End: 10-10-2024 Start: 10-09-2024 End: 10-09-2024 Start: 10-09-2024 End: 10-09-2024 Start: 10-09-2024 End: 10-09-2024 Start: 03-16-2021 End: 03-21-2021 2 mg, IntraVENous, EVERY 2 H OURS PRN, Anxiety, agitation, Starting on Sun03/16/21 at 1002 Start: 03-16-2021 End: 03-16-2021 4 mg, IntraVENous, ONCE, On Sun03/16/21 at 0645, For 1 dose Start: 03-16-2021 End: 03-16-2021 Starting on Sun03/16/21 at 0627, For 1 dose PAUL ALLY: cabinet override midodrine hydrochloride 5 mg oral tablet (1 source) alpha-Adrenergic Agonist Start: 03-21-2021 End: 03-30-2021 5 mg, Oral, 3 TIMES DAILY, First dose on Sun03/21/21 at 1800 Do not give after 1800 or within 4 hrs of bedtime. 1 ml morphine sulfate 4 mg/ml cartridge (4 sources) Opioid Agonist Start: 01-08-2023 End: 01-08-2023 morphine injection 2 mg Start: 01-08-2023 End: 01-08-2023 morphine injection 4 mg mupirocin 0.02 mg/mg topical ointment (2 sources) RNA Synthetase Inhibitor Antibacterial Start: 10-09-2024 End: 10-14-2024 1 ml naloxone hydrochloride 0.4 mg/ml injection (8 sources) Opioid Antagonist Start: 01-29-2025 End: 02-04-2025 0.4 mg, IntraVENous, Every 5 min PRN, opioid reversal, respiratory depression, Starting on [place] 01/29/25 at 1435, +++ For RR Start: 10-09-2024 End: 10-18-2024 Start: 11-23-2023 End: 11-30-2023 Start: 08-07-2023 End: 08-09-2023 0.4 mg, IntraVENous, PRN, op ioid reversal, Starting on Sun08/07/23 at 1004, For oversedation/difficult to rouse, pinpoint pupils, RR < 8; notify primary team automobile sales consultant if used nystatin [id number] unt/ml topic al cream (20 sources) Polyene Antifungal Start: 11-22-2023 End: 11-26-2023 Start: 07-31-2023 End: 08-09-2023 apply 1 dose topically twice daily Topical, 2 times da cosmo, First dose on Sun07/31/23 at 0900, Recovery & On Unit, Apply to affected area(s) Start: 03-22-2022 nystatin (Myco statin) [id number] UNIT/GM powder 03/22/2022 Active 2 ml ondansetron 2 mg/ml injection (11 sources) Serotonin-3 Receptor Antagonist Start: 01-03-2024 End: 01-03-2024 4 mg, IntraVENous, Once PRN, nausea, Starting on Sun01/03/24 at 1404, For 1 dose, Recovery (only), Initial antiemetic therapy. Start: 01-08-2023 End: 01-08-2023 ondansetron (Zofran) injecti on 4 mg Start: 06-09-2022 End: 06-16-2022 take 4 mg intravenously every six hours as needed for nausea and vomiting 4 mg, IntraVENous, Every 6 hours PRN, nausea, vomiting, Starting on Sun06/09/22 at 1741 End: 06-16-2022 ondansetron ODT (Zofran-ODT) disintegrating tablet 4 mg (6 sources) Start: 01-29-2025 End: 02-04-2025 take 1 tablet by mouth every eight hours as needed for nausea and vomiting ondansetron ODT (Zofran-ODT) disintegrating tablet 4 mg Start: 01-08-2023 End: 01-11-2023 take 1 tablet by mouth every eight hours as needed for nausea and vomiting ondansetron ODT (Zofran-ODT) disintegrating tablet 4 mg Start: 08-02-2022 End: 08-07-2022 take 1 tablet by mouth every eight hours as needed for nausea and vomiting ondansetron ODT (Zofran-ODT) disintegrating tablet 4 mg oxyCODONE (20 sources) Opioid Agonist Start: 01-29-2025 End: 02-04-2025 take 1 tablet by mouth every four hours as needed for pain oxyCODONE (Roxicodone) immediate release tablet 2.5 mg Start: 10-18-2024 End: 10-23-2024 Start: 10-09-2024 End: 10-18-2024 take 5 mg by mouth every four hours as needed for pain Start: 01-03-2024 End: 01-03-2024 5 mg, Oral, PRN, moderate pa in (4-6), Starting on Sun01/03/24 at 1404, For 1 dose, Recovery (only), Administer when patient is able to tolerate PO meds Start: 11-22-2023 End: 11-30-2023 take 5 mg by mouth every four hours as needed for pain and pain Start: 08-08-2023 End: 08-14-2023 Start: 08-07-2023 End: 08-09-2023 take 5 mg by mouth every four hours as needed for pain and pain 5 mg, Oral, Every 4 hours PRN, moderate pain (4-6), severe pain (7-10), Starting on Sun08/07/23 at 1004 Start: 01-11-2023 End: 10-10-2024 Start: 01-08-2023 End: 01-11-2023 take 1 tablet by mouth every six hours as needed for pain and pain oxyCODONE (Roxicodone) immediate release tablet 2.5 mg Start: 04-17-2022 End: 08-10-2022 take 1 tablet by mouth every six hours as needed for pain oxyCODONE (Roxicodone) immediate release tablet 5 mg Start: 04-04-2021 take 5 mg by mouth e very six hours as needed for pain 5 mg, Oral, EVERY 6 HOURS PRN, Pain Moderate (4-6), Pain Severe (7-10), Starting on Sun04/04/21 at 1315 Start: 03-30-2021 End: 04-04-2021 take 5 mg by mouth every eight hours as needed for pain 5 mg, Oral, EVERY 8 HOURS PRN, Pain Moderate (4-6), Pain Severe (7-10), Starting on Sun03/30/21 at 1141 Start: 03-22-2021 End: 03-30-2021 take 5 mg by mouth every four hours as needed for pain 5 mg, Oral, EVERY 4 HOURS PRN, Pain Moderate (4-6), Pain Severe (7-10), Starting on Sun03/22/21 at 1040 Start: 03-08-2021 End: 03-13-2021 take 5 mg by mouth twice daily 5 mg, Oral, 2 TIMES EDI LY, First dose on 03/12/21 at 1045 Start: 02-10-2021 End: 02-12-2021 take 1 tablet by mouth every six hours oxyCODONE 5 mg oral tablet ; 1 tab(s) orally every 6 hours as neded Quantity: 12 Refills: 0 Ordered: 10-Feb-2021 Cristiane Poon Start: 10-Feb-2021 End: 12-Feb-2021 Generic Substitution Allowed Comments: Caution [employer] law prohibits the transfer of this drug to any person other than the person for whom it was prescribed.It is very important that you take or use this exactly as directed. Do not skip doses or discontinue unless directed by your doctor.May cause drowsiness or dizziness.This prescription cannot be refilled.Using more of this medication than prescribed may cause serious breathing problems. Start: 11-25-2020 End: 02-04-2021 take 1 tablet by mouth every six hours as needed oxyCODONE 5 mg oral tablet ; 1 tab(s) orally every 6 hours, As Needed pain Quantity: 120 Refills: 0 Ordered: 06-Jan-2021 Km Parry Start: 25-Nov-2020 End: 04-Feb-2021 Generic Substitution Allowed Comments: Caution federal law prohibits the transfer of this drug to any person other than the person for whom it was prescribed.It is very important that you take or use this exactly as directed. Do not skip doses or discontinue unless directed by your doctor.May cause drowsiness or dizziness.This prescription cannot be refilled.Using more of this medication than prescribed may cause serious breathing problems. Start: 03-31-2020 End: 03-02-2021 take 1 tablet by mouth twice daily OxyCONTIN 10 mg oral tablet, extended release ; 1 tab(s) orally 2 times a day Quantity: 6 Refills: 0 Ordered: 10-Feb-2021 ElianakayceCristiane ibanez Start: 10-Feb-2021 End: 12-Feb-2021 Generic Substitution Allowed Comments: Caution federal law prohibits the transfer of this drug to any person other than the person for whom it was prescribed.Check with your doctor before becoming .Do not chew, break, or crush.Do not drink alcoholic beverages when taking this medication.May cause drowsiness or dizziness.Obtain medical advice before taking any non-prescription drugs as some may affect the action of this medication.Swallow whole. Do not crush.This drug may impair the ability to drive or operate machinery. Use care until you become familiar with its effects.This prescription cannot be refilled.Using more of this medication than prescribed may cause serious breathing problems. take 1 tablet by fito th every six hours as needed oxyCODONE 10 mg oral tablet ; 1 tab(s) orally every 6 hours PRN CHRONIC PAIN Quantity: 0 Refills: 0 Ordered: 05-Aug-2019 Nany Mohamud Status: Discontinued Generic Substitution Allowed take 1 tablet by fito th every twelve hours OxyCONTIN 10 mg oral tablet, extended release ; 1 tab(s) orally every 12 hours Quantity: 0 Refills: 0 Ordered: 17-Mar-2020 Vanessa Castillo Status: Discontinued Generic Substitution Allowed Comment on above: Caution federal law prohibits the transfer of this drug to any person other than the person for whom it was prescribed.Check with your doctor before becoming .Do not chew, break, or crush.Do not drink alcoholic beverages when taking this medication.May cause drowsiness or dizziness.Obtain medical advice before taking any non-prescription drugs as some may affect the action of this medication.Swallow whole. Do not crush.This drug may impair the ability to drive or operate machinery. Use care until you become familiar with its effects.This prescription cannot be refilled.Using more of this medication than prescribed may cause serious breathing problems. Caution federal law prohibits the transfer of this drug to any person other than the person for whom it was prescribed.It is very important that you take or use this exactly as directed. Do not skip doses or discontinue unless directed by your doctor.May cause drowsiness or dizziness.This prescription cannot be refilled.Using more of this medication than prescribed may cause serious breathing problems. Petrolatum (6 sources) Start: 02-03-20 End: 02-05-20 apply 1 dose topically twice daily as needed Topical, 2 times daily, First dose on Sun02/02/25 at 1200, Nursing Staff to perform dressing change Bilateral lower extremities: Venous stasis dermatitis, lymphedema -Cleanse with soap and water, apply Aquaphor to intact dry flaky skin Daily and PRN -Elevate lower extremities, Apply to: Bilateral Lower Extremities Start: 02-02-2025 End: 02-04-2025 Topical, 2 times daily PRN, dry skin, Starting on Sun02/02/25 at 1124, Nursing Staff to perform dressing change Bilateral lower extremities: Venous stasis dermatitis, lymphedema -Cleanse with soap and water, apply Aquaphor to intact dry flaky skin Daily and PRN -Elevate lower extremities, Apply to: Bilateral Lower Extremities Start: 04-13-2021 Start: 03-16-2021 apply 1 dose topical ly twice daily Topical, 2 TIMES DAILY, First dose on Sun03/16/21 at 2100 Apply to BLE. phenazopyridine hydrochloride 200 mg delayed release oral tablet (2 sources) Start: 08-06-2022 End: 08-07-2022 phenazopyridine (Pyridium) tablet 200 mg piperacillin 3000 mg / tazobactam 375 mg injection (6 sources) Penicillin-class Antibacterial, beta Lactamase Inhibitor Start: 03-09-2021 End: 03-15-2021 3,375 mg, IntraVENous, EVERY 8 HOURS, First dose (after last reorder) on Sun03/09/21 at 0915, Until Discontinued Start: 03-08-2021 End: 03-08-2021 4,500 mg, IntraVENous, ONCE, 1 dose, On Sun03/08/21 at 2100 Start: 02-08-2021 End: 03-21-2021 piperacillin-tazobactam 3 g- 0.375 g/50 mL intravenous solution ; zosyn 3.375g Q6H Quantity: 0 Refills: 0 Ordered: 08-Feb-2021 HillMerle ritchie Darian Start: 08-Feb-2021 End: 21-Mar-2021 Status: Discontinued Generic Substitution Allowed Start: 02-06-2021 End: 04-13-2021 piperacillin-tazobactam 3 g- 0.375 g/50 mL intravenous solution ; intravenous Quantity: 0 Refills: 0 Ordered: 06-Feb-2021 Seble Garcia Start: 06-Feb-2021 Status: Discontinued Generic Substitution Allowed piperacillin-tazobactam (Zosyn) 4,500 mg in sodium chloride 0.9 % 100 mL IVPB Mini-Bag Plus (4 sources) Start: 01-29-2025 End: 02-02-2025 take 4500 mg intravenously every six hours 4,500 mg, IntraVENous, at 33.3 mL/hr, Administer over 3 Hours, Every 6 hours, First dose on [place] 01/29/25 at 1800, Mini-Bag Plus bag, Suspected Indication (Select all that apply): Urinary Tract Infection Start: 01-29-2025 End: 01-29-2025 4,500 mg, IntraVENous, at 20 0 mL/hr, Administer over 0.5 Hours, Once, On [place] 01/29/25 at 1135, For 1 dose, Mini-Bag Plus bag, Suspected Indication (Select all that apply): Urinary Tract Infection polyethylene glycol 3350 37089 mg powder for oral solution (19 sources) Osmotic Laxative Start: 01-29-2025 End: 02-04-2025 take 17 g by mouth every twenty-four hours as needed for constipation Start: 11-23-2023 End: 12-02-2023 take 17 g by mouth every twenty-four hours as needed Start: 07-30-2023 End: 08-09-2023 17 g, Oral, Daily, First dos e on Sun07/31/23 at 0900 Start: 01-08-2023 End: 01-11-2023 take 17 g by mouth every twenty-four hours as needed for constipation 17 g, Oral, Daily PRN, constipation, Starting on Sun01/08/23 at 1300, 1st line for treatment of constipation - give scheduled if no bowel movement in past 24 hours. Start: 08-02-2022 End: 08-07-2022 take 17 g by mouth every twenty-four hours as needed for constipation 17 g, Oral, Daily PRN, constipation, Starting on Sun08/02/22 at 2009 1st line for treatment of constipation - give scheduled if no bowel movement in past 24 hours. Start: 03-15-2021 17 g, Per G Tu be, DAILY PRN, Constipation, Starting on Sun03/15/21 at 2317 First line therapy for constipation Start: 08-14-2019 polyethylene g lycol 3350 oral powder for reconstitution ; 17 gram(s) orally once a day Quantity: 0 Refills: 0 Ordered: 14-Aug-2019 Pasha Hay Start: 14-Aug-2019 Status: Other Generic Substitution Allowed potassium chloride 20 meq powder for oral solution (10 sources) Start: 08-04-2023 End: 08-04-2023 10 mEq, IntraVENous, at 100 mL/hr, Administer over 1 Hours, Every 1 hour, First dose on 08/04/23 at 1600, For 2 doses, Total dose: 20 mEq Start: 08-03-2023 End: 08-04-2023 take 1 [oz_av] by mouth once 40 mEq, Oral, Once, On Sa t 08/04/23 at 1600, For 1 dose, Dissolve each packet in 4 ounces of water = 5 mEq per 1 oz fluid., Indications: Hypokalemia Start: 06-12-2022 End: 06-12-2022 40 mEq, Oral, Once, On Sun at 0915, For 1 dose Best given with food and plenty of water to minimize gastric irritation. Do not crush or chew. take 1 tablet by fito th once daily potassium chloride 20 mEq oral tablet, extended release ; 1 tab(s) orally once a day Quantity: 0 Refills: 0 Ordered: 05-Aug-2019 Nany Mohamud Status: Discontinued Generic Substitution Allowed 100 ml propofol 10 mg/ml injection (3 sources) General Anesthetic Start: 08-01-2023 End: 08-05-2023 5-50 mcg/kg/min 159 kg (4.77-47.7 mL/hr), IntraVENous, Continuous, Starting on Sun08/01/23 at 1600, If Titrate Infusion? is "No": Disregard instructions below. If Titrate infusion? is "Yes": Titrate in increments of 5 mcg/kg/min no more frequently than every 5 minutes to goal of therapy. If after titration rate change patient exhibits adverse hemodynamic response, next titration rate change may be adjusted by one-half of the previous rate change. If patient fails sedation interruption, resume propofol infusion at 50% of previous rate. General Anesthetic - do not give without appropriate ventilation support. Do not administer propofol in same IV catheter as blood or plasma. Discard any unused portion of propofol vials and tubing after 12 hours., Titrate Infusion? Yes, Initial Infusion Rate: 20 mcg/kg/min, Goal of Therapy: RASS 0 to -1, Contact Provider if: New onset HR less than 50 bpm, New onset SBP less than 90 mmHg, Triglycerides greater than 500 mg/dL, Patient is receiving maximum dose and is not achieving the goal of therapy Start: 03-16-2021 End: 03-18-2021 5-50 mcg/kg/min 196.9 kg (5. 907-59.07 mL/hr, rounded to 5.9- 59.1 mL/hr), IntraVENous, TITRATED, Starting on Sun03/16/21 at 0100 For sedation, titrate to RASS +1 to -1 Dose Range: 5 to 50 mcg/kg/min Initial dose is 10 mcg/kg/min Max dose: 50 mcg/kg/min Contact physician if max dose does not achieve desired response If RASS 1 point below goal - decrease dose by 5 mcg/kg/min no faster than every 5 min If RASS 2 points below goal - decrease dose by 10 mcg/kg/min no faster than every 5 min If RASS at goal, continue current dose If RASS 1 point above goal - increase dose by 5 mcg/kg/min no faster than every 5 min If RASS 2 or more points above goal - increase dose by 10 mcg/kg/min no faster than every 5 min If after titration dose change patient exhibits adverse hemodynamic response, next titration dose change may be adjusted by one-half of the previous dose change If patient fails sedation interruption, resume propofol titration at 50% of previous dose Do not administer through the same I.V. catheter with blood or plasma. Tubing and any unused portions of propofol vials should be discarded after 12 hours. QUEtiapine 25 mg oral tablet (5 sources) Atypical Antipsychotic Start: 02-03-2025 End: 02-04-2025 take 12.5 mg by mouth twice daily as needed 12.5 mg, Oral, 2 times daily PRN, agitation, Starting on Sun02/03/25 at 1810 Start: 02-01-2025 End: 02-03-2025 take 25 mg by mouth twice daily as needed 25 mg, Oral, 2 times daily PRN, agitation, Starting on Sun02/01/25 at 1338 Start: 03-18-2021 End: 03-23-2021 take 25 mg by mouth once daily 25 mg, Oral, NIGHTLY, F irst dose on Sun03/18/21 at 2100 rocuronium bromide 10 mg/ml injectable solution (2 sources) Nondepolarizing Neuromuscular Dyan Start: 07-31-2023 End: 07-31-2023 IntraVENous, Code/trauma/sedation medication, Starting on Sun07/31/23 at 0432 sertraline 50 mg oral tablet (20 sources) Serotonin Reuptake Inhibitor Start: 08-18-2021 End: 11-29-2023 take 1 tablet by mouth once daily sertraline (Zoloft) 50 MG tablet Take 50 mg by mouth daily. 08/18/2021 11/29/2023 Discontinued (Stop taking at discharge) 10 ml sodium bicarbonate 84 mg/ml injection (4 sources) Start: 07-30-2023 End: 07-30-2023 50 mEq, IntraVENous, Once, On Sun07/30/23 at 2345, For 1 dose 50 ml sodium chloride 9 mg/ml injection (20 sources) Start: 01-29-2025 End: 02-01-2025 take 75 mL intravenously every hour 75 mL/hr, IntraVENous, Continuous, Starting on [place] 01/29/25 at 1325 Start: 10-09-2024 End: 10-18-2024 take 5-40 mL intraluminal route every eight hours Start: 10-09-2024 End: 10-18-2024 Start: 10-09-2024 End: 10-10-2024 Start: 01-03-2024 End: 01-03-2024 10 mL, IntraVENous, Every 12 hours scheduled (2 times per day), First dose on [place] 01/03/24 at 2100, Recovery (only) Start: 01-03-2024 End: 01-03-2024 10 mL, IntraVENous, Every 12 hours scheduled (2 times per day), First dose on [place] 01/03/24 at 2100, Recovery (only) Start: 01-03-2024 End: 01-03-2024 500 mL, IntraVENous, at 1,00 0 mL/hr, Administer over 0.5 Hours, PRN, Anti-nausea, Starting on [place] 01/03/24 at 1404, Recovery (only), Indications: Anti-nausea Start: 01-03-2024 End: 01-03-2024 10 mL, IntraVENous, Every 12 hours scheduled (2 times per day), First dose on [place] 01/03/24 at 1000, Preprocedure Start: 01-03-2024 End: 01-03-2024 take 100 mL intravenously every hour as needed, then take 20 mL intravenously every hour as needed 5-250 mL/hr, IntraVENous, PRN, if patient receiving piggyback infusions and maintenance fluids are not ordered OR KVO fluids to protect IV site / prevent frequent line interruptions/ long duration, Starting on [place] 01/03/24 at 0948, Preprocedure, For piggyback infusion, administer at same rate as piggyback for a total of 25 mL. Enter 25 mL into dose field and piggyback rate into rate field of order. If piggyback is infusing at a rate less than 100 mL/hr, enter 25 mL into dose field and 100 mL/hr into rate field of order. For KVO fluids, enter rate of 20 mL/hr or less into rate field of order. Start: 01-03-2024 End: 01-03-2024 take 10 mL intravenously once as needed 10 mL, IntraVENous, PRN, line care, Starting on [place] 01/03/24 at 0948, Preprocedure, After every IV line use Start: 01-03-2024 End: 01-03-2024 take 5-40 mL intravenously every twelve hours 5-40 mL, IntraVENous, Every 12 hours, First dose on [place] 01/03/24 at 1000, Preprocedure, For Line Patency: Peripheral IV = 5 mL; Midline or Central Line = 10 mL/lumen. If following IV push medication, administer flush at same rate as the IV push. Flush volume is determined by type of infusion therapy being given. For non-viscous solutions use: Peripheral IV = 5 mL Midline or Central Line = 10 mL/lumen For viscous solutions (i.e. blood components, parenteral nutrition, contrast media, or after obtaining blood sample) use: Peripheral IV = 10 mL Midline or Central Line = 20 mL/lumen Start: 11-28-2023 End: 11-30-2023 take 10 mL intraluminal route every twelve hours Start: 11-23-2023 End: 11-25-2023 Start: 09-27-2023 End: 09-27-2023 10 mL, IntraVENous, Every 12 hours scheduled (2 times per day), First dose on [place] 09/27/23 at 1015, Preprocedure Start: 09-27-2023 End: 09-27-2023 take 100 mL intravenously every hour as needed, then take 20 mL intravenously every hour as needed 5-250 mL/hr, IntraVENous, PRN, if patient receiving piggyback infusions and maintenance fluids are not ordered OR KVO fluids to protect IV site / prevent frequent line interruptions/ long duration, Starting on [place] 09/27/23 at 1014, Preprocedure, For piggyback infusion, administer at same rate as piggyback for a total of 25 mL. Enter 25 mL into dose field and piggyback rate into rate field of order. If piggyback is infusing at a rate less than 100 mL/hr, enter 25 mL into dose field and 100 mL/hr into rate field of order. For KVO fluids, enter rate of 20 mL/hr or less into rate field of order. Start: 09-27-2023 End: 09-27-2023 5-40 mL, IntraVENous, PRN, l ine care, After every IV line use, Starting on [place] 09/27/23 at 1014, Preprocedure, For Line Patency: Peripheral IV = 5 mL; Midline or Central Line = 10 mL/lumen. If following IV push medication, administer flush at same rate as the IV push. Flush volume is determined by type of infusion therapy being given. For non-viscous solutions use: Peripheral IV = 5 mL Midline or Central Line = 10 mL/lumen For viscous solutions (i.e. blood components, parenteral nutrition, contrast media, or after obtaining blood sample) use: Peripheral IV = 10 mL Midline or Central Line = 20 mL/lumen Start: 09-27-2023 End: 09-27-2023 take 5-40 mL intravenously every twelve hours 5-40 mL, IntraVENous, Every 12 hours, First dose on [place] 09/27/23 at 1015, Preprocedure, For Line Patency: Peripheral IV = 5 mL; Midline or Central Line = 10 mL/lumen. If following IV push medication, administer flush at same rate as the IV push. Flush volume is determined by type of infusion therapy being given. For non-viscous solutions use: Peripheral IV = 5 mL Midline or Central Line = 10 mL/lumen For viscous solutions (i.e. blood components, parenteral nutrition, contrast media, or after obtaining blood sample) use: Peripheral IV = 10 mL Midline or Central Line = 20 mL/lumen Start: 08-06-2023 End: 08-09-2023 take 10 mL intraluminal route every twelve hours 10 mL, IntraCATHeter, Every 12 hours, First dose on Sun08/06/23 at 1900, Administer to each lumen, regardless of whether or not fluids are infusing. Line Care. Use 10 mL or larger syringe. Start: 08-06-2023 End: 08-09-2023 10 mL, IntraCATHeter, PRN, l ine care, before blood draws, before and after infusion or medication administration, Starting on Sun08/06/23 at 1844, Use 10 mL or larger syringe. Start: 08-03-2023 End: 08-09-2023 4 mL, Nebulization, 2 times daily, First dose on Sun08/03/23 at 1500 Start: 07-31-2023 End: 08-09-2023 5-40 mL, IntraVENous, PRN, l ine care, before and after blood draws, infusion, or medication administration, Starting on Tu07/31/23 at 1022, For Line Patency: Peripheral IV = 5 mL; Midline or Central Line = 10 mL/lumen. If following IV push medication, administer flush at same rate as the IV push. Flush volume is determined by type of infusion therapy being given. For non-viscous solutions use: Peripheral IV = 5 mL Midline or Central Line = 10 mL/lumen For viscous solutions (i.e. blood components, parenteral nutrition, contrast media, or after obtaining blood sample) use: Peripheral IV = 10 mL Midline or Central Line = 20 mL/lumen Start: 07-31-2023 End: 08-04-2023 take 5-40 mL intraluminal route every eight hours 5-40 mL, IntraCATHeter, Every 8 hours, First dose on Sun07/31/23 at 1030, For Line Patency: Peripheral IV = 5 mL; Midline or Central Line = 10 mL/lumen. If following IV push medication, administer flush at same rate as the IV push. Flush volume is determined by type of infusion therapy being given. For non-viscous solutions use: Peripheral IV = 5 mL Midline or Central Line = 10 mL/lumen For viscous solutions (i.e. blood components, parenteral nutrition, contrast media, or after obtaining blood sample) use: Peripheral IV = 10 mL Midline or Central Line = 20 mL/lumen Start: 07-30-2023 End: 08-09-2023 10 mL, IntraVENous, Every 12 hours scheduled (2 times per day), First dose on Sun07/30/23 at 2145 Start: 07-30-2023 End: 07-30-2023 1,000 mL, IntraVENous, at 1, 000 mL/hr, Administer over 1 Hours, Once, On Sun07/30/23 at 1445, For 1 dose Start: 01-08-2023 End: 01-08-2023 sodium chloride 0.9 % bolus 500 mL Start: 08-02-2022 End: 08-07-2022 take 5-40 mL intravenously every twelve hours 5-40 mL, IntraVENous, Every 12 hours, First dose on Sun08/02/22 at 2015 For Line Patency: Peripheral IV = 5 mL; Midline or Central Line = 10 mL/lumen. If following IV push medication, administer flush at same rate as the IV push. Flush volume is determined by type of infusion therapy being given. For non-viscous solutions use: Peripheral IV = 5 mL Midline or Central Line = 10 mL/lumen For viscous solutions (i.e. blood components, parenteral nutrition, contrast media, or after obtaining blood sample) use: Peripheral IV = 10 mL Midline or Central Line = 20 mL/lumen Start: 08-02-2022 End: 08-07-2022 5-250 mL/hr, IntraVENous, NJ N, if patient receiving piggyback infusions and maintenance fluids are not ordered OR KVO fluids to protect IV site / prevent frequent line interruptions / long duration, Starting on Sun08/02/22 at 2008 For piggyback infusion, administer at same rate as piggyback for a total of 25 mL. Enter 25 mL into dose field and piggyback rate into rate field of order. If piggyback is infusing at a rate less than 100 mL/hr, enter 25 mL into dose field and 100 mL/hr into rate field of order. For KVO fluids, enter rate of 20 mL/hr or less into rate field of order. Start: 08-02-2022 End: 08-07-2022 take 5-40 mL intravenously once as needed 5-40 mL, IntraVENous, PRN, line care, After every IV line use, Starting on Sun08/02/22 at 2008 For Line Patency: Peripheral IV = 5 mL; Midline or Central Line = 10 mL/lumen. If following IV push medication, administer flush at same rate as the IV push. Flush volume is determined by type of infusion therapy being given. For non-viscous solutions use: Peripheral IV = 5 mL Midline or Central Line = 10 mL/lumen For viscous solutions (i.e. blood components, parenteral nutrition, contrast media, or after obtaining blood sample) use: Peripheral IV = 10 mL Midline or Central Line = 20 mL/lumen Start: 06-16-2022 End: 06-16-2022 take 10 mL intraluminal route every twelve hours 10 mL, IntraCATHeter, Every 12 hours, First dose on Sun06/16/22 at 1745 Line Care. Use 10 mL or larger syringe. Start: 06-16-2022 End: 06-16-2022 10 mL, IntraCATHeter, PRN, l ine care, before and after blood draws, infusion or medication administration, Starting on Sun06/16/22 at 1732 Use 10 mL or larger syringe. Start: 06-09-2022 End: 06-16-2022 take 1 dose intravenously twice daily 5-40 mL, IntraVENous, Every 12 hours scheduled (2 times per day), First dose on Sun06/09/22 at 2100 For Line Patency: Peripheral IV = 5 mL; Midline or Central Line = 10 mL/lumen. If following IV push medication, administer flush at same rate as the IV push. Flush volume is determined by type of infusion therapy being given. For non-viscous solutions use: Peripheral IV = 5 mL Midline or Central Line = 10 mL/lumen For viscous solutions (i.e. blood components, parenteral nutrition, contrast media, or after obtaining blood sample) use: Peripheral IV = 10 mL Midline or Central Line = 20 mL/lumen Start: 06-09-2022 End: 06-16-2022 5-250 mL/hr, IntraVENous, NJ N, if patient receiving piggyback infusions and maintenance fluids are not ordered OR KVO fluids to protect IV site / prevent frequent line interruptions/ long duration, Starting on Sun06/09/22 at 1602 For piggyback infusion, administer at same rate as piggyback for a total of 25 mL. Enter 25 mL into dose field and piggyback rate into rate field of order. If piggyback is infusing at a rate less than 100 mL/hr, enter 25 mL into dose field and 100 mL/hr into rate field of order. For KVO fluids, enter rate of 20 mL/hr or less into rate field of order. Start: 06-09-2022 End: 06-16-2022 5-40 mL, IntraVENous, PRN, l ine care, Starting on Sun06/09/22 at 1602 For Line Patency: Peripheral IV = 5 mL; Midline or Central Line = 10 mL/lumen. If following IV push medication, administer flush at same rate as the IV push. Flush volume is determined by type of infusion therapy being given. For non-viscous solutions use: Peripheral IV = 5 mL Midline or Central Line = 10 mL/lumen For viscous solutions (i.e. blood components, parenteral nutrition, contrast media, or after obtaining blood sample) use: Peripheral IV = 10 mL Midline or Central Line = 20 mL/lumen Start: 06-09-2022 End: 06-09-2022 1,000 mL, IntraVENous, at 1, 000 mL/hr, Administer over 1 Hours, Once, On Sun06/09/22 at 1330, For 1 dose Start: 03-13-2021 End: 04-15-2021 10 mL, IntraCATHeter, EVERY 12 HOURS, First dose on Sun03/13/21 at 1600 Administer to each lumen, regardless of whether or not fluids are infusing. Line Care. Use 10 mL or larger syringe. Start: 03-13-2021 End: 03-13-2021 500 mL, IntraVENous, at 100 mL/hr, ONCE, On Sun03/13/21 at 0430, For 1 dose Start: 03-08-2021 take 25 mL intraveno usly every hour as needed 25 mL, IntraVENous, at 100 mL/hr, PRN, If patient receiving piggyback infusions without ordered maintenance IV fluids or with frequent/long duration piggyback infusions, Starting on Sun03/08/21 at 2119 Administer at the same rate as the piggyback being infused. Start: 03-08-2021 End: 04-15-2021 take 1 dose intravenously twice daily 5-40 mL, IntraVENous, EVERY 12 HOURS SCHEDULED (2 times per day), First dose on Sun03/08/21 at 2130 For Line Patency: Peripheral IV = 5 mL; Midline or Central Line = 10 mL/lumen. If following IV push medication, administer flush at same rate as the IV push. Flush volume is determined by type of infusion therapy being given. For non-viscous solutions use: Peripheral IV = 5 mL Midline or Central Line = 10 mL/lumen For viscous solutions (i.e. blood components, parenteral nutrition, contrast media, or after obtaining blood sample) use: Peripheral IV = 10 mL Midline or Central Line = 20 mL/lumen stomahesive in petrolatum (ET Mix) (2 sources) Start: 01-10-2023 End: 01-11-2023 stomahesive in petrolatum (ET Mix) triamcinolone acetonide 0.001 mg/mg topical ointment (2 sources) Corticosteroid Start: 10-15-2024 End: 10-18-2024 200 ml vancomycin 5 mg/ml injection (3 sources) Glycopeptide Antibacterial Start: 03-13-2021 End: 03-14-2021 1,000 mg (6.6 mg/kg), IntraVENous, at 200 mL/hr, Administer over 60 Minutes, EVERY 12 HOURS, First dose (after last reorder) on Sun03/13/21 at 2200 Start: 02-06-2021 vancomycin ; 1 250 milligram(s) every 12 hours - to Quantity: 0 Refills: 0 Ordered: 06-Feb-2021 Seble Garcia Start: 06-Feb-2021 Generic Substitution Allowed vancomycin (VANCOCIN) 2,500 mg in dextrose 5 % 500 mL IVPB (1 source) Start: 03-08-2021 End: 03-09-2021 2,500 mg (rounded from 2,721 mg = 15 mg/kg 181.4 kg), IntraVENous, at 166.7 mL/hr, Administer over 180 Minutes, ONCE, On Sun03/08/21 at 2100, For 1 dose Xeroform Petrolat Gauze 1"x8 pad 1 each (2 sources) Start: 01-10-2023 End: 01-11-2023 Xeroform Petrolat Gauze 1"x8 pad 1 each (20 sources) Start: 10-11-2024 End: 10-18-2024 [Order 1 Start] Name: Insuli n Lispro (Humalog) injection 0-12 Units Signed Summary: 0-12 Units, SubCUTAneous, 3 times daily with meals, First dose on Sun10/11/24 at 0800, Medium Dose Correction Algorithm Glucose: Dose: LESS than 150 No Insulin 150-199 2 Units 200-249 4 Units 250-299 6 Units 300-349 8 Units 350-400 10 Units Above 400 12 Units [Order 1 End] [Order 2 Start] Name: Insulin Lispro (Humalog) injection 0-12 Units Signed Summary: 0-12 Units, SubCUTAneous, Nightly, First dose on Sun10/10/24 at 2115, If eating or bolus tube feeding: Medium Dose Correction Algorithm Glucose: Dose: LESS than 150 No Insulin 150-199 2 Units 200-249 4 Units 250-299 6 Units 300-349 8 Units 350-400 10 Units Above 400 12 Units [Order 2 End] Start: 10-10-2024 End: 10-18-2024 Start: 10-09-2024 End: 10-18-2024 [Order 1 Start] Name: sodium phosphates 10 mmol in dextrose 5 % 100 mL IVPB Signed Summary: 10 mmol, IntraVENous, at 66.7 mL/hr, Administer over 90 Minutes, PRN, Per Phosphate IV Replacement Protocol, Starting on Sun10/09/24 at 1813, Phos level Replacement Action 2.3 to 2.7 mg/dL 10 mmol IVPB over 1.5 hours 1.5 to 2.2 mg/dL 15 mmol IVPB over 2 hours LESS than 1.5 mg/dL 20 mmol IVPB over 3 hours [Order 1 End] [Order 2 Start] Name: sodium phosphates 15 mmol in dextrose 5 % 250 mL IVPB Signed Summary: 15 mmol, IntraVENous, at 125 mL/hr, Administer over 120 Minutes, PRN, Per Phosphate IV Replacement Protocol, Starting on Sun10/09/24 at 1813, Phos level Replacement Action 2.3 to 2.7 mg/dL 10 mmol IVPB over 1.5 hours 1.5 to 2.2 mg/dL 15 mmol IVPB over 2 hours LESS than 1.5 mg/dL 20 mmol IVPB over 3 hours [Order 2 End] [Order 3 Start] Name: sodium phosphates 20 mmol in dextrose 5 % 250 mL IVPB Signed Summary: 20 mmol, IntraVENous, at 83.3 mL/hr, Administer over 180 Minutes, PRN, Per Phosphate IV Replacement Protocol, Starting on Sun10/09/24 at 1813, Phos level Replacement Action 2.3 to 2.7 mg/dL 10 mmol IVPB over 1.5 hours 1.5 to 2.2 mg/dL 15 mmol IVPB over 2 hours LESS than 1.5 mg/dL 20 mmol IVPB over 3 hours [Order 3 End] Start: 10-09-2024 End: 10-18-2024 [Order 1 Start] Name: latoya ium sulfate IVPB premix 2,000 mg Signed Summary: 2,000 mg, IntraVENous, at 25 mL/hr, Administer over 2 Hours, As needed, Per Magnesium Replacement Protocol, Starting on [place] 10/09/24 at 1813, Mg Lab Replacement Action 1.4-1.6 2 gram IVPB x 1 doses 1.0-1.3 4 gram IVPB x 1 doses Less than 1.0 CALL PHYSICIAN and 4 gram IVPB x 1 doses Infuse at 1 gram/hr. Repeat Mag level next AM. Not for use in Patients with CrCl less than 30 mL/min. [Order 1 End] [Order 2 Start] Name: magnesium sulfate IVPB 4,000 mg Signed Summary: 4,000 mg, IntraVENous, at 25 mL/hr, Administer over 4 Hours, As needed, Per Magnesium Replacement Protocol, Starting on [place] 10/09/24 at 1813, Mg Lab Replacement Action 1.4-1.6 2 gram IVPB x 1 doses 1.0-1.3 4 gram IVPB x 1 doses Less than 1.0 CALL PHYSICIAN and 4 gram IVPB x 1 doses Infuse at 1 gram/hr. Repeat Mag level next AM. Not for use in Patients with CrCl less than 30 mL/min. [Order 2 End] Start: 10-09-2024 End: 10-18-2024 [Order 1 Start] Name: neena ium chloride CR (Klor-Con M10) ER tablet 40 mEq Signed Summary: 40 mEq, Oral, PRN, Per Potassium Replacement Protocol, Starting on [place] 10/09/24 at 1813, May give linked alternative if patient unable to tolerate oral formulation. K Lab Replacement Action 3.1 to 3.5 40 mEq ORAL x 1 Under 3.1 Refer to IV replacement protocol Recheck K level in AM. Protocol not for use in patients with CrCl less than 30 mL/min. Do not crush or chew. [Order 1 End] [Order 2 Start] Name: potassium chloride (Klor-Con) packet 40 mEq Signed Summary: 40 mEq, Oral, PRN, Per Potassium Replacement Protocol, Starting on [place] 10/09/24 at 1813, Administer as alternative if patient unable to tolerate oral tablet. K Lab Replacement Action 3.1 to 3.5 40 mEq ORAL x 1 Under 3.1 Refer to IV replacement protocol Recheck K level in AM. Protocol not for use in patients with CrCl less than 30 mL/min. Dissolve each packet in 4 ounces of water = 5 mEq per 1 oz fluid. [Order 2 End] [Order 3 Start] Name: potassium chloride 40 mEq in sodium chloride 0.9 % 500 mL IVPB Signed Summary: 40 mEq, IntraVENous, at 130 mL/hr, Administer over 4 Hours, PRN, Per Potassium Replacement Protocol, Starting on [place] 10/09/24 at 1813, For Peripheral Line Use: K Lab Replacement Action 2.7 to 3.0 40 mEq x 1 dose Under 2.7 CALL PROVIDER and administer 40 mEq x 1 dose Infuse at 10 mEq/hr. Repeat Potassium lab 1 hour after administration. Protocol not for use in patients with CrCl less than 30 mL/min. [Order 3 End] Start: 10-09-2024 End: 10-18-2024 take 4 mg by mouth every eight hours as needed for nausea and vomiting [Order 1 Start] Name: ondansetron ODT (Zofran-ODT) disintegrating tablet 4 mg Signed Summary: 4 mg, Oral, Every 8 hours PRN, nausea, vomiting, Starting on [place] 10/09/24 at 1807, 1st Line. If inadequate response within 60 minutes, proceed to next-line agent or contact provider if no further options ordered. Patient should allow tablet to dissolve on tongue. Do not remove from blister pack until just before administering. [Order 1 End] [Order 2 Start] Name: ondansetron (Zofran) injection 4 mg Signed Summary: 4 mg, IntraVENous, Every 6 hours PRN, nausea, vomiting, Starting on [place] 10/09/24 at 1807, 1st Line. Give IV if patient is unable to take orally. If inadequate response within 60 minutes, proceed to next-line agent or contact provider if no further options ordered. [Order 2 End] Start: 10-09-2024 End: 10-09-2024 Start: 10-09-2024 End: 10-14-2024 take 4500 mg intravenously every six hours Start: 11-25-2023 End: 11-30-2023 inject 12 [IU] by subcutaneous injection once daily [Order 1 Start] Name: Insulin Lispro (Humalog) injection 0-12 Units Signed Summary: 0-12 Units, SubCUTAneous, 3 times daily with meals, First dose on 11/25/23 at 1315, Medium Dose Correction Algorithm Glucose: Dose: LESS than 139 No Insulin 140-199 2 Unit 200-249 4 Units 250-299 6 Units 300-349 8 Units 350-400 10 Units Above 400 12 Units [Order 1 End] [Order 2 Start] Name: Insulin Lispro (Humalog) injection 0-12 Units Signed Summary: 0-12 Units, SubCUTAneous, Nightly, First dose on 11/25/23 at 2100, If continuous tube feedings/TPN/NPO, give correction dose based on result, no reduction in dose. If eating or bolus tube feeding: Medium Dose Correction Algorithm Glucose: Dose: LESS than 139 No Insulin 140-199 2 Unit 200-249 4 Units 250-299 6 Units 300-349 8 Units 350-400 10 Units Above 400 12 Units [Order 2 End] Start: 11-23-2023 End: 11-30-2023 take 2000 mg intravenously every eight hours Start: 11-23-2023 End: 11-30-2023 take 4 mg by mouth every eight hours as needed for nausea and vomiting [Order 1 Start] Name: ondansetron ODT (Zofran-ODT) disintegrating tablet 4 mg Signed Summary: 4 mg, Oral, Every 8 hours PRN, nausea, vomiting, Starting on Sun11/23/23 at 0249, 1st Line. If inadequate response within 60 minutes, proceed to next-line agent or contact provider if no further options ordered. Patient should allow tablet to dissolve on tongue. Do not remove from blister pack until just before administering. [Order 1 End] [Order 2 Start] Name: ondansetron (Zofran) injection 4 mg Signed Summary: 4 mg, IntraVENous, Every 6 hours PRN, nausea, vomiting, Starting on Sun11/23/23 at 0249, 1st Line. Give IV if patient is unable to take orally. If inadequate response within 60 minutes, proceed to next-line agent or contact provider if no further options ordered. [Order 2 End] Start: 11-23-2023 End: 11-30-2023 take 650 mg by mouth every six hours as needed for pain and fever [Order 1 Start] Name: acetaminophen (Tylenol) tablet 650 mg Signed Summary: 650 mg, Oral, Every 6 hours PRN, mild pain (1-3), fever, For temp greater than 100.4 F (38 C), Starting on Sun11/23/23 at 0249, Maximum dose of acetaminophen is 4000 mg from all sources in 24 hours. [Order 1 End] [Order 2 Start] Name: acetaminophen (Tylenol) suppository 650 mg Signed Summary: 650 mg, Rectal, Every 6 hours PRN, mild pain (1-3), fever, For temp greater than 100.4 F (38 C), Starting on Sun11/23/23 at 0249, Administer if oral route cannot be used. Maximum dose of acetaminophen is 4000 mg from all sources in 24 hours. [Order 2 End] Start: 11-22-2023 End: 11-23-2023 take 2000 mg intravenously every eight hours Start: 08-05-2023 End: 08-07-2023 take 5 mL intravenously every hour 5 mg/hr (5 mL/hr), IntraVENous, Continuous, Starting on Sun08/05/23 at 0615 Start: 08-03-2023 End: 08-04-2023 take 1000 mg intravenously every twelve hours Start: 07-30-2023 End: 07-31-2023 0-10 mL, IntraVENous, IMG on ce PRN, other, Suboptimal echo image, Starting on Sun07/30/23 at 2250, For 1 dose, CV Procedural Medications, Administer via slow IVP for suboptimal echocardiogram enhancement. May administer as divided doses to reach optimal image enhancement Start: 07-30-2023 End: 08-09-2023 take 2000 mg intravenously every eight hours 2,000 mg, IntraVENous, at 33.3 mL/hr, Administer over 180 Minutes, Every 8 hours, First dose on Sun07/30/23 at 2200, Mini-Bag Plus bag, Suspected Indication (Select all that apply): Urinary Tract Infection Start: 07-30-2023 End: 08-09-2023 20 mg, IntraVENous, Administ er over 2 Minutes, 2 times daily, First dose on Sun07/30/23 at 2145, IV Push over minimum of 2 minutes - Dilute with 10 mL NS Start: 07-30-2023 End: 08-09-2023 take 4 mg by mouth every eight hours as needed for nausea and vomiting [Order 1 Start] Name: ondansetron ODT (Zofran-ODT) disintegrating tablet 4 mg Signed Summary: 4 mg, Oral, Every 8 hours PRN, nausea, vomiting, Starting on Sun07/30/23 at 2128, 1st Line. If inadequate response within 60 minutes, proceed to next-line agent or contact provider if no further options ordered. Patient should allow tablet to dissolve on tongue. Do not remove from blister pack until just before administering. [Order 1 End] [Order 2 Start] Name: ondansetron (Zofran) injection 4 mg Signed Summary: 4 mg, IntraVENous, Every 6 hours PRN, nausea, vomiting, Starting on Sun07/30/23 at 2128, 1st Line. Give IV if patient is unable to take orally. If inadequate response within 60 minutes, proceed to next-line agent or contact provider if no further options ordered. [Order 2 End] Start: 07-30-2023 End: 08-09-2023 take 650 mg by mouth every six hours as needed for pain and fever [Order 1 Start] Name: acetaminophen (Tylenol) tablet 650 mg Signed Summary: 650 mg, Oral, Every 6 hours PRN, mild pain (1-3), fever, For temp greater than 100.4 F (38 C), Starting on Sun07/30/23 at 2128, Maximum dose of acetaminophen is 4000 mg from all sources in 24 hours., , On hold since Sun07/31/2023 at 0315 until manually unheld [Order 1 End] [Order 2 Start] Name: acetaminophen (Tylenol) suppository 650 mg Signed Summary: 650 mg, Rectal, Every 6 hours PRN, mild pain (1-3), fever, For temp greater than 100.4 F (38 C), Starting on Sun07/30/23 at 2128, Administer if oral route cannot be used. Maximum dose of acetaminophen is 4000 mg from all sources in 24 hours., , On hold since Sun07/31/2023 at 0315 until manually unheld [Order 2 End] Start: 07-30-2023 End: 07-31-2023 take 75 mL intravenously every hour 75 mL/hr, IntraVENous, Continuous, Starting on Sun07/30/23 at 2135 Start: 07-30-2023 End: 07-30-2023 Start: 06-12-2022 End: 06-16-2022 1,000 mg, IntraVENous, at 10 0 mL/hr, Administer over 30 Minutes, Every 24 hours, First dose on Sun06/12/22 at 2000 Mini-Bag Plus bag Suspected Indication (Select all that apply): Bloodstream Infection, Urinary Tract Infection Start: 06-10-2022 End: 06-12-2022 take 1000 mg intravenously every twelve hours 1,000 mg, IntraVENous, at 200 mL/hr, Administer over 30 Minutes, Every 12 hours, First dose (after last modification) on 06/10/22 at 2100 Mini-Bag Plus bag Suspected Indication (Select all that apply): Bloodstream Infection Start: 06-10-2022 End: 06-10-2022 take 1000 mg intravenously every eight hours 1,000 mg, IntraVENous, at 200 mL/hr, Administer over 30 Minutes, Every 8 hours, First dose (after last reorder) on 06/10/22 at 0800 Mini-Bag Plus bag Suspected Indication (Select all that apply): Bloodstream Infection Start: 06-10-2022 End: 06-11-2022 take 125 mL intravenously every hour 125 mL/hr, IntraVENous, Continuous, Starting on 06/10/22 at 0615 Start: 06-09-2022 End: 06-16-2022 take 1 tablet by mouth once daily [Order 1 Start] Name : pantoprazole (ProtoNix) EC tablet 40 mg Signed Summary: 40 mg, Oral, Nightly, First dose on Sun06/09/22 at 2100 Do not crush, chew, or split. [Order 1 End] [Order 2 Start] Name: pantoprazole (ProtoNix) injection 40 mg Signed Summary: 40 mg, IntraVENous, Administer over 2 Minutes, Nightly, First dose on Sun06/09/22 at 2100 Give only if unable to tolerate po. [Order 2 End] Start: 06-09-2022 End: 06-10-2022 take 4500 mg intravenously every six hours 4,500 mg, IntraVENous, at 33.3 mL/hr, Administer over 3 Hours, Every 6 hours, First dose (after last reorder) on Sun06/09/22 at 1930 Suspected Indication (Select all that apply): Skin and Soft Tissue Infection, Urinary Tract Infection Start: 06-09-2022 End: 06-10-2022 Start: 06-09-2022 End: 06-09-2022 Start: 03-15-2021 End: 03-17-2021 1,000 mg, IntraVENous, at 10 0 mL/hr, Administer over 30 Minutes, EVERY 48 HOURS, First dose on Sun03/15/21 at 1815 Incompatible with dextrose containing solutions. Use Adjusted Body Weight to dose daptomycin if BMI is 30 or greater. Start: 03-15-2021 End: 03-18-2021 1,000 mg, IntraVENous, at 33 .3 mL/hr, Administer over 180 Minutes, EVERY 8 HOURS, First dose on Sun03/15/21 at 1230 Start: 03-09-2021 End: 03-13-2021 1,500 mg (8.27 mg/kg), IntraVENous, at 166.7 mL/hr, Administer over 90 Minutes, EVERY 12 HOURS, First dose (after last modification) on Sun03/09/21 at 1300 Start: 03-08-2021 [Order 1 Start ] Name: ondansetron (ZOFRAN-ODT) disintegrating tablet 4 mg Signed Summary: 4 mg, Oral, EVERY 8 HOURS PRN, Nausea, Vomiting, Starting on Sun03/08/21 at 2119 [Order 1 End] [Order 2 Start] Name: ondansetron (ZOFRAN) injection 4 mg Signed Summary: 4 mg, IntraVENous, EVERY 6 HOURS PRN, Nausea, Vomiting, Starting on Sun03/08/21 at 2119 Administer if oral route cannot be used. [Order 2 End] (2 sources) Start: 03-16-2021 End: 03-18-2021 take 1.9-93.8 mL intravenously every hour 2-100 mcg/min (1.875-93.75 mL/hr, rounde d to 1.9-93.8 mL/hr), IntraVENous, CONTINUOUS, Starting on Sun03/16/21 at 0515 Titrate to MAP greater than 65 mmHg Typical Dose Range: 8 - 12 mcg/min Initial Dose is 8 mcg/min. Max Dose: 100 mcg/min Contact physician if max dose does not achieve desired response If rate LESS than 10 mcg/min: Titrate by 2 mcg/min no faster than every 5 minutes to goal If rate GREATER than or equal to 10 mcg/min: Titrate by 5 mcg/min no faster than every 5 minutes to goal When approaching therapeutic goal or weaning off, smaller titration increments of 1 mcg/min no faster than every 5 minutes may be used to maintain goal. Start: 03-15-2021 End: 03-15-2021 Starting on Sun03/15/21 at 204, For 1 dose ALLY MILLER: cabinet override (5 sources) Start: 07-31-2023 End: 08-05-2023 25-200 mcg/hr (2.5-20 mL/hr) , IntraVENous, Continuous, Starting on Sun07/31/23 at 0730, If Titrate Infusion? is "No": Disregard instructions below. If Titrate infusion? is "Yes": Titrate in increments of 25 mcg/hr no more frequently than every 30 minutes to goal of therapy. If after titration dose change patient exhibits adverse hemodynamic response, next titration dose change may be adjusted by one-half of the previous dose change. If patient fails sedation interruption, resume infusion at 50% of previous dose., Titrate Infusion? Yes, Initial Infusion Dose: 50 mcg/hr, Goal of Therapy is: RASS -1 to +1, Contact Provider if: Patient is receiving the maximum dose and is not achieving the goal of therapy Start: 07-31-2023 End: 07-31-2023 25-200 mcg/hr (2.5-20 mL/hr) , IntraVENous, Continuous, Starting on Sun07/31/23 at 0445, If Titrate Infusion? is "No": Disregard instructions below. If Titrate infusion? is "Yes": Titrate in increments of 25 mcg/hr no more frequently than every 30 minutes to goal of therapy. If after titration dose change patient exhibits adverse hemodynamic response, next titration dose change may be adjusted by one-half of the previous dose change. If patient fails sedation interruption, resume infusion at 50% of previous dose., Titrate Infusion? Yes, Initial Infusion Dose: 50 mcg/hr, Goal of Therapy is: CPOT <3, Contact Provider if: Patient is receiving the maximum dose and is not achieving the goal of therapy Start: 03-16-2021 End: 03-18-2021 take 1.3-20 mL intravenously every hour 12.5-200 mcg/hr (1.25-20 mL/hr, rounded to 1.3-20 mL/hr), IntraVENous, CONTINUOUS, Starting on Sun03/16/21 at 0015, Until Sun03/18/21 at 1235 Titrate to RASS +1 to -1 Dose Range: 12.5 to 200 mcg/hr Initial dose 25 mcg/hr. Max dose: 200 mcg/hr Contact physician if max dose does not achieve desired response If RASS greater than goal: increase fentanyl infusion by 25 mcg/hr no faster than every hour If RASS at goal: continue same rate If RASS below goal: decrease fentanyl infusion by 25mcg/hr no faster than every hour If patient fails sedation interruption, resume fentanyl titration at previous rate (16 sources) Start: 10-13-2024 End: 10-14-2024 Start: 10-10-2024 End: 10-13-2024 Start: 10-09-2024 End: 10-09-2024 Start: 11-27-2023 End: 11-29-2023 Start: 11-24-2023 End: 11-26-2023 Start: 11-23-2023 End: 11-24-2023 Start: 07-31-2023 End: 08-03-2023 Start: 07-30-2023 End: 07-30-2023 (2 sources) Start: 07-31-2023 End: 08-04-2023 1-100 mcg/min (0.9375-93.75 mL/hr, rounded to 0.94-93.75 mL/hr), IntraVENous, Continuous, Starting on Sun07/31/23 at 0445, Infuse via central line. If Titrate Infusion? is "No": Disregard instructions below. If Titrate infusion? is "Yes": If rate LESS than 10 mcg/min: Titrate by 2 mcg/min no faster than every 5 minutes to goal. If rate GREATER than or equal to 10 mcg/min: Titrate by 5 mcg/min no faster than every 5 minutes to goal. When approaching therapeutic goal or weaning off, smaller titration increments of 1 mcg/min no faster than every 5 minutes may be used to maintain goal., Titrate Infusion? Yes, Initial Infusion Dose: 5 mcg/min, Goal of Therapy is: MAP greater than 65 mmHg, Contact Provider if: Patient is receiving the maximum dose and is not achieving the goal of therapy (2 sources) Start: 07-31-2023 End: 08-01-2023 take 1000 mg intravenously every eight hours 1,000 mg, IntraVENous, at 400 mL/hr, Administer over 15 Minutes, Every 8 hours, First dose on Sun07/31/23 at 0400, For 6 doses (2 sources) Start: 07-31-2023 End: 08-09-2023 apply 1 dose topically twice daily Topical, 2 times daily, First dose (after last modification) on Sun07/31/23 at 0600, Apply to lower extremity and feet . (2 sources) Start: 06-10-2022 End: 06-11-2022 2-50 mcg/min (7.5-187.5 mL/hr), IntraVENous, Continuous, Starting on Sun06/10/22 at 1015, For 24 hours If Titrate Infusion? is "No": Disregard instructions below. If Titrate infusion? is "Yes": If rate LESS than 10 mcg/min: Titrate by 2 mcg/min no faster than every 5 minutes to goal. If rate GREATER than or equal to 10 mcg/min: Titrate by 5 mcg/min no faster than every 5 minutes to goal. When approaching therapeutic goal or weaning off, smaller titration increments of 1 mcg/min no faster than every 5 minutes may be used to maintain goal. Titrate Infusion: Yes Initial Infusion Dose: 5 mcg/min Goal of Therapy is: SBP greater than 90 mmHg Contact Provider if: Patient is receiving the maximum dose and is not achieving the goal of therapy (2 sources) Start: 06-10-2022 End: 06-10-2022 1.65 mg, IntraVENous, IMG once PRN, other, Suboptimal echo image, Starting on 06/10/22 at 0634, For 1 dose, CV Procedural Medications Administer up to 1.65 mg via slow IVP for suboptimal echocardiogram enhancement. May administer a calculated dose or diluted 8.5 mL of 0.9% sodium chloride for a total volume of 10 mL. May administer as divided doses to reach optimal image enhancement (2 sources) Start: 10-10-2024 End: 10-18-2024 (2 sources) Start: 10-09-2024 End: 10-18-2024 Problems Active Problems Problem Classification Problem Date Documented Date Episodic/Chronic Acute cerebrovascular disease (20 sources) Cerebrovascular accident; Translations: [Cerebral infarction, unspecified] Onset: 10-17-2017 03-08-2021 Chronic Cardiac dysrhythmias (20 sources) Paroxysmal atrial fibrillation; Translations: [Paroxysmal atrial fibrillation] Onset: 03-08-2021 Chronic Chronic kidney disease (20 sources) Chronic kidney disease; Translations: [Chronic kidney disease, unspecified] Onset: 04-10-2021 Chronic Chronic kidney disease (2 sources) Chronic kidney disease; Translations: [Chronic kidney disease, stage 3b (HCC)] Onset: 10-09-2024 Chronic ulcer of skin (20 sources) Pressure ulcer stage 2; Translations: [Pressure ulcer, heel] Onset: 03-08-2021 02-07-2021 Chronic Congestive heart failure; nonhypertensive (12 sources) Chronic heart failure co-occurrent with normal ejection fraction; Translations: [Chronic diastolic (congestive) heart failure] Onset: 10-09-2024 07-30-2023 Chronic Diabetes mellitus with complications (20 sources) Ulcer of midfoot due to diabetes mellitus; Translations: [Diabetes with other specified manifestations, type II or unspecified type, not stated as uncontrolled] Onset: 03-08-2021 02-07-2021 Chronic Diabetes mellitus without complication (1 source) Diabetes mellitus without complication 02-07-2021 Disorders of lipid metabolism (20 sources) Hyperlipidemia; Translations: [Hyperlipidemia, unspecified] Onset: 03-08-2021 Chronic Essential hypertension (20 sources) Hypertensive disorder; Translations: [Essential (primary) hypertension] Onset: 03-08-2021 Chronic Infective arthritis and osteomyelitis (except that caused by tuberculosis or sexually transmitted disease) (7 sources) Osteomyelitis; Translations: [Unspecified osteomyelitis, site unspecified] Resolved: 04-11-2021 02-05-2021 Chronic Comment on above: OSTEOMYELITIS Mycoses (2 sources) Mycosis; Translations: [Unspecified mycosis] 11-22-2023 Episodic Osteoarthritis (20 sources) Osteoarthritis; Translations: [Unspecified osteoarthritis, unspecified site] Onset: 03-08-2021 03-08-2021 Chronic Other aftercare (2 sources) Patient encounter status; Translations: [Encounter for palliative care] Resolved: 04-11-2021 Episodic Other circulatory disease (2 sources) Critical lower limb ischemia ; Translations: [Unspecified circulatory system disorder] 02-07-2021 Episodic Other connective tissue disease (2 sources) Muscle spasm of cervical muscle of neck; Translations: [Other muscle spasm] 01-08-2023 Episodic Other connective tissue disease (2 sources) Swelling of right upper limb; Translations: [Other specified soft tissue disorders] 11-22-2023 Episodic Other connective tissue disease (1 source) Muscle weakness (generalized); Translations: [Muscle weakness (generalized)] Onset: 12-05-2024 Episodic Other diseases of bladder and urethra (20 sources) Spasm of bladder; Translations: [Other specified disorders of bladder] Onset: 12-19-2018 03-08-2021 Chronic Other diseases of veins and lymphatics (2 sources) 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; Translations: [Chronic venous hypertension (idiopathic) with ulcer of right lower extremity] 01-10-2023 Chronic Other diseases of veins and lymphatics (4 sources) Lymphedema of bilateral lower limbs; Translations: [Lymphedema, not elsewhere classified] 02-04-2025 Chronic Other diseases of veins and lymphatics (2 sources) Lymphedema, not elsewhere classified; Translations: [Lymphedema, not elsewhere classified] Onset: 01-29-2025 Chronic Other nervous system disorders (8 sources) Disorder of brain; Translations: [Encephalopathy, unspecified] Onset: 01-29-2025 Resolved: 04-08-2021 Chronic Other nervous system disorders (20 sources) Chronic pain; Translations: [Other chronic pain] Onset: 10-30-2017 03-08-2021 Chronic Other nervous system disorders (2 sources) Encephalopathy, unspecified; Translations: [Encephalopathy, unspecified] Onset: 01-29-2025 Chronic Other nervous system disorders (1 source) Unspecified lack of coordination; Translations: [Unspecified lack of coordination] Onset: 12-05-2024 Episodic Other nutritional; endocrine; and metabolic disorders (20 sources) Body mass index 40+ - severely obese; Translations: [Morbid (severe) obesity due to excess calories] Onset: 04-15-2021 Chronic Other nutritional; endocrine; and metabolic disorders (2 sources) Morbid obesity; Translations: [Morbid (severe) obesity due to excess calories] 11-22-2023 Chronic Peripheral and visceral atherosclerosis (10 sources) Critical lower limb ischemia ; Translations: [Atherosclerosis of [place] arteries of extremities with rest pain, unspecified extremity] Onset: 10-09-2024 10-18-2024 Chronic Residual codes; unclassified (2 sources) Swelling - edema - symptom; Translations: [Edema, unspecified] Episodic Residual codes; unclassified (2 sources) Finding related to ability to move; Translations: [Other specified health status] 11-22-2023 Episodic Residual codes; unclassified (2 sources) Difficult venous access; Translations: [Other specified health status] 11-28-2023 Episodic Respiratory failure; insufficiency; arrest (adult) (12 sources) Acute on chronic hypercapnic respiratory failure; Translations: [Acute and chronic respiratory failure with hypercapnia] Onset: 10-09-2024 Resolved: 04-11-2021 Chronic Respiratory failure; insufficiency; arrest (adult) (2 sources) Acute respiratory failure; Translations: [Acute respiratory failure, unspecified whether with hypoxia or hypercapnia] Resolved: 04-10-2021 Episodic Skin and subcutaneous tissue infections (10 sources) Cellulitis of lower leg; Translations: [Cellulitis and abscess of leg, except foot] Onset: 12-05-2024 02-02-2021 Episodic Spondylosis; intervertebral disc disorders; other back problems (20 sources) Degeneration of cervical intervertebral disc; Translations: [Other cervical disc degeneration, unspecified cervical region] Onset: 01-25-2015 03-08-2021 Chronic Unclassified (2 sources) R FOOT PAIN 02-02-2021 Comment on above: R FOOT PAIN Unclassified (2 sources) Primary hypertension 02-02-2021 Unclassified (1 source) Cellulitis of right lower leg 02-02-2021 Unclassified (1 source) Cellulitis of right lower extremity 02-07-2021 Unclassified (1 source) Cellulitis of left lower extremity 02-07-2021 Unclassified (1 source) Pressure injury of right heel, stage 2 02-07-2021 Unclassified (1 source) Acute hematogenous osteomyelitis of right foot 02-07-2021 Urinary tract infections (20 sources) Recurrent urinary tract infection; Translations: [Urinary tract infection, site not specified] Onset: 12-19-2018 03-08-2021 Episodic Past or Other Problems Problem Classification Problem Date Documented Date Episodic/Chronic Acute and unspecified renal failure (20 sources) Acute injury of kidney; Translations: [Acute kidney failure, unspecified] Onset: 08-07-2022 Resolved: 04-08-2021 Episodic Calculus of urinary tract (20 sources) Calculus in pelviureteric junction ; Translations: [Calculus of ureter] Onset: 08-07-2022 08-07-2022 Episodic Complication of device; implant or graft (20 sources) Inflammation associated with genitourinary device; Translations: [Infection and inflammatory reaction due to indwelling ureteral stent, initial encounter] Onset: 08-02-2022 08-02-2022 Episodic Deficiency and other anemia (20 sources) Anemia; Translations: [Anemia, unspecified] Onset: 04-08-2021 Episodic Diabetes mellitus without complication (20 sources) Hyperglycemia; Translations: [Hyperglycemia, unspecified] Onset: 04-10-2021 Episodic Genitourinary symptoms and ill-defined conditions (20 sources) Asymptomatic bacteriuria; Translations: [Bacteriuria] Onset: 04-11-2021 Episodic Other connective tissue disease (20 sources) Radicular pain; Translations: [Neuralgia and neuritis, unspecified] Onset: 01-08-2023 01-08-2023 Episodic Other diseases of veins and lymphatics (20 sources) Venous stasis; Translations: [Other specified disorders of veins] Onset: 08-07-2022 08-07-2022 Episodic Other injuries and conditions due to external causes (20 sources) Wound ; Translations: [Unspecified multiple injuries, initial encounter] Onset: 07-21-2017 Episodic Other injuries and conditions due to external causes (2 sources) Unspecified multiple injuries, initial encounter; Translations: [Unspecified multiple injuries, initial encounter] Onset: 01-14-2022 Episodic Other nervous system disorders (20 sources) Impaired cognition; Translations: [Other symptoms and signs involving cognitive functions and awareness] Onset: 04-15-2021 Episodic Residual codes; unclassified (20 sources) Urinary catheter in situ; Translations: [Presence of other specified devices] Onset: 04-10-2021 Episodic Residual codes; unclassified (20 sources) Edema; Translations: [Edema, unspecified] Onset: 04-11-2021 01-14-2022 Episodic Residual codes; unclassified (16 sources) Altered mental status; Translations: [Altered mental status, unspecified] Onset: 11-23-2023 11-23-2023 Episodic Residual codes; unclassified (2 sources) Presence of other specified devices; Translations: [Presence of other specified devices] Onset: 08-07-2022 Episodic Septicemia (except in labor) (20 sources) Septic shock; Translations: [Sepsis, unspecified organism] Onset: 06-09-2022 06-09-2022 Episodic Results Test Name Value Interpretation Reference Range Facility [id number] 02-04-2025 [id number] MAR & Discharge med list transmitted to [facility] via [facility] per TCC request. [facility] [id number] [facility] [id number] Transport requested in [facility]. Awaiting time confirmation. [facility] [id number] [facility] [id number] [facility] Laboratory - Chemistry and C hemistry - challengeon 02-04-2025 Glucose [Mass/Vol] 181 mg/dL High 70 - 100 mg/dL [facility] Glucose [Mass/Vol] 132 mg/dL High 70 - 100 mg/dL [facility] No Panel Informationon 02-04 Interpretation and review of laboratory results Abnormal [facility] Performed by: Imeldamelissa Serna, [address] [facility] [address] CLIA ID: [id number] [facility] Interpretation and review of laboratory results Abnormal [facility] Performed by: Bentley Serna, [address] [facility] [address] CLIA ID: [id number] [facility] Nursing Noteon 02-04-2025 Nursing Note Report called to Jason plummer at [facility]. Normal [facility] Nursing Note At 0055, this RN att empted to collect patients blood work. Patient refused. Patient educated. Patient ultimately refusing. She stated, "I do not want to be poked anymore, no no no." Physician notified. Will continue to monitor. Normal [facility] Progress Noteon 02-04-2025 Progress Note Normal [facility] US Lower extremity vein - bi lateralOrdered By: Carlos Mclaughlin on 02-04-2025 Left Pop Rfx 0.7 s [facility] [employer] Work Phone: US Lower extremity vein - bi lateralon 02-04-2025 No evidence of deep vein and superficial thrombosis in the right lower extremity. No evidence of deep vein and superficial thrombosis in the left lower extremity. Patient unable to tolerate compression in multiple segments of the leg. Grayscale and color doppler imaging was used in place of compressions where necessary. Unable to visualize the right popliteal, gastrocnemius, and small saphenous vein on the right leg due to patient positioning, body habitus, and immobility. Study Details A jiang scale, color Doppler imaging and spectral Doppler analysis ultrasound was performed. During the study longitudinal and transverse views were obtained. Pulsed wave doppler was performed. The exam was performed with the patient in the supine position. Overall the study quality was suboptimal. Study was technically difficult due to: body habitus, patient uncooperative, bedside exam and Poor positioning and immobility.. Right Lower Venous No evidence of deep vein and superficial thrombosis in the right lower extremity. Common Femoral Vein: Patent. Greater Saphenous Vein: Entire vessel patent, compressible Saphenofemoral Junction: Patent. Small Saphenous Vein: Not visualized. Profunda Femoral Vein: Patent. Femoral Vein: Patent Popliteal Vein: Not visualized. Gastrocnemius Vein: Not visualized. Soleal Vein: Patent, compressible. Posterior Tibial Vein: Patent, compressible. Peroneal Vein: Not visualized. Patient unable to tolerate compression in multiple segments of the leg. Grayscale and color doppler imaging was used in place of compressions where necessary. Unable to visualize the popliteal, gastrocnemius, and small saphenous vein on the right leg due to patient positioning, body habitus, and immobility. Left Lower Venous No evidence of deep vein and superficial thrombosis in the left lower extremity. Common Femoral Vein: Patent. Greater Saphenous Vein: Enitre vessel patent, compressible. Saphenofemoral Junction: Patent. Small Saphenous Vein: Patent, compressible. Profunda Femoral Vein: Patent. Femoral Vein: Patent. Popliteal Vein: Patent, normal phasicity, spontaneous, normal augmentation, compressible. Gastrocnemius Vein: Patent, compressible. Soleal Vein: Patent, compressible. Posterior Tibial Vein: Patent, compressible. Peroneal Vein: Patent, compressible. Patient unable to tolerate compression in multiple segments of the leg. Grayscale and color doppler imaging was used in place of compressions where necessary. CV CPACS VASC US LOWER EXTREMITY VENO US DUPLEX BILATERALon 02-04-2025 VASC US LOWER EXTREMITY VENOUS DUPLEX BILATERAL Normal [facility] Bacteria identified Cx Nom ( Bld)on 02-03-2025 Interpretation and review of laboratory results Normal [facility] Blood Collection Sit e: Left Forearm [facility] Blood Collection Sit e: Left Antecubital [facility] CBC W Auto Differential pane l (Bld)on 02-03-2025 Basophils (Bld) [#/Vol] 0 10*3/uL 0.0 - 0.2 10*3/uL [facility] Basophils/100 WBC (Bld) 0.5 % 0.0 - 2.0 % [facility] Eosinophils (Bld) [#/Vol] 0.4 10*3/uL 0.0 - 0.5 10*3/uL [facility] Eosinophils/100 WBC (Bld) 6.4 % High 0.0 - 6.0 % [facility] Erythrocyte distribution width (RBC) [Ratio] 15.9 % High 11.5 - 15.0 % [facility] Hematocrit (Bld) [Volume fraction] 32.7 % Low 35.0 - 47.0 % [facility] Hemoglobin (Bld) [Mass/Vol] 10.4 g/dL Low 11.7 - 16.0 g/dL [facility] Immature granulocytes (Bld) [#/Vol] 0 10*3/uL NINF - 0.1 10*3/uL [facility] Immature granulocytes/100 WBC (Bld) 0.2 % 0.0 - 2.0 % [facility] Interpretation and review of laboratory results Abnormal [facility] Lymphocytes (Bld) [#/Vol] 1.8 10*3/uL 1.0 - 4.3 10*3/uL [facility] Lymphocytes/100 WBC (Bld) 30.4 % 15.0 - 45.0 % [facility] MCH (RBC) [Entitic mass] 31.8 pg 26.0 - 34.0 pg [facility] MCHC (RBC) [Mass/Vol] 31.8 % 30.5 - 36.0 % [facility] MCV (RBC) [Entitic vol] 100 fL High 77.0 - 99.0 fL [facility] Monocytes (Bld) [#/Vol] 0.4 10*3/uL 0.0 - 0.9 10*3/uL [facility] Monocytes/100 WBC (Bld) 7 % 5.0 - 13.0 % [facility] Neutrophils (Bld) [#/Vol] 3.3 10*3/uL 1.8 - 7.5 10*3/uL [facility] Neutrophils/100 WBC (Bld) 55.5 % 38.0 - 82.0 % [facility] Nucleated RBC/100 WBC (Bld) [Ratio] 0 % [facility] Platelet mean volume (Bld) [Entitic vol] 11.8 fL 9.0 - 12.7 fL [facility] Platelets (Bld) [#/Vol] 201 10*3/uL 140 - 440 10*3/uL [facility] RBC (Bld) [#/Vol] 3.27 10*6/uL Low 3.80 - 5.2 0 10*6/uL [facility] WBC (Bld) [#/Vol] 6 10*3/uL 3.6 - 10.7 10*3/uL [facility] CBC WITH AUTO DIFFERENTIALon 02-03-2025 Basophils (Bld) [#/Vol] 0.0 10*3/uL Normal 0.0-0.2 [facility] Comment on above: Performed By: #### L [id number] ####Fashion Intern: REJI HAMILTON ([id number])[facility] ([facility])[address] Basophils/100 WBC (Bld) 0.5 % Normal 0.0-2.0 [facility] Comment on above: Performed By: #### L [id number] ####Fashion Intern: REJI HAMILTON ([id number])[facility] [place] ([facility])[address] Eosinophils (Bld) [#/Vol] 0.4 10*3/uL Normal 0.0-0.5 [facility] Comment on above: Performed By: #### L [id number] ####Fashion Intern: REJI HAMILTON ([id number])[facility] [place] ([facility])[address] Eosinophils/100 WBC (Bld) 6.4 % High 0.0-6.0 [facility] Comment on above: Performed By: #### L [id number] ####Fashion Intern: REJI HAMILTON ([id number])[facility] [place] ([facility])[address] Erythrocyte distribution width (RBC) [Ratio] 15.9 % High 11.5-15.0 [facility] Comment on above: Performed By: #### L [id number] ####Fashion Intern: REJI HAMILTON ([id number])[facility] [place] ([facility])[address] Hematocrit (Bld) [Volume fraction] 32.7 % Low 35.0-47.0 [facility] Comment on above: Performed By: #### L [id number] ####Fashion Intern: REJI HAMILTON ([id number])[facility] ([facility])[address] Hemoglobin (Bld) [Mass/Vol] 10.4 g/dL Low 11.7-16.0 [facility] Comment on above: Performed By: #### L [id number] ####Fashion Intern: REJI HAMILTON ([id number])[facility] ([facility])[address] IMMATURE GRANS % 0.2 % Normal 0.0-2.0 [facility] Comment on above: Performed By: #### L [id number] ####Fashion Intern: REJI HAMILTON ([id number])[facility] ([facility])[address] IMMATURE GRANS ABSOLUTE 0.0 10*3/uL Normal <0.1 [facility] Comment on above: Performed By: #### L [id number] ####Fashion Intern: REJI HAMILTON ([id number])[facility] ([facility])[address] [place] [address] Lymphocytes (Bld) [#/Vol] 1.8 10*3/uL Normal 1.0-4.3 [facility] Comment on above: Performed By: #### L [id number] ####Fashion Intern: REJI HAMILTON ([id number])[facility] ([facility])[address] [place] [address] Lymphocytes/100 WBC (Bld) 30.4 % Normal 15.0-45.0 [facility] Comment on above: Performed By: #### L [id number] ####Fashion Intern: REJI HAMILTON ([id number])[facility] ([facility])[address] MCH (RBC) [Entitic mass] 31.8 pg Normal 26.0-34.0 [facility] Comment on above: Performed By: #### L [id number] ####Fashion Intern: REJI HAMILTON ([id number])[facility] ([facility])[address] MCHC 31.8 % Normal 30.5-36.0 [facility] Comment on above: Performed By: #### L [id number] ####Fashion Intern: REJI HAMILTON ([id number])[facility] ([facility])[address] MCV (RBC) [Entitic vol] 100.0 fL High 77.0-99.0 [facility] Comment on above: Performed By: #### L [id number] ####Fashion Intern: REJI HAMILTON ([id number])[facility] [place] ([facility])[address] Monocytes (Bld) [#/Vol] 0.4 10*3/uL Normal 0.0-0.9 [facility] Comment on above: Performed By: #### L [id number] ####Fashion Intern: REJI HAMILTON ([id number])[facility] [place] ([facility])[address] Monocytes/100 WBC (Bld) 7.0 % Normal 5.0-13.0 [facility] Comment on above: Performed By: #### L [id number] ####Fashion Intern: REJI HAMILTON ([id number])[facility] ([facility])[address] NEUTROPHILS ABSOLUTE 3.3 10*3/uL Normal 1.8-7.5 [facility] Comment on above: Performed By: #### L [id number] ####Fashion Intern: REJI HAMILTON ([id number])[facility] [place] ([facility])[address] Neutrophils/100 WBC (Bld) 55.5 % Normal 38.0-82.0 [facility] Comment on above: Performed By: #### L [id number] ####Fashion Intern: REJI HAMILTON ([id number])[facility] [place] ([facility])[address] NRBC 0.0 /100 WBCs Normal 0.0-2.0 [facility] Comment on above: Performed By: #### L [id number] ####Fashion Intern: REJI HAMILTON ([id number])[facility] [place] ([facility])[address] Platelet mean volume (Bld) [Entitic vol] 11.8 fL Normal 9.0-12.7 [facility] Comment on above: Performed By: #### L [id number] ####Fashion Intern: REJI HAMILTON ([id number])[facility] ([facility])[address] Platelets (Bld) [#/Vol] 201 10*3/uL Normal 140-440 [facility] Comment on above: Performed By: #### L [id number] ####Fashion Intern: REJI HAMILTON ([id number])[facility] ([facility])[address] RBC (Bld) [#/Vol] 3.27 10*6/uL Low 3.80-5.20 [facility] Comment on above: Performed By: #### L [id number] ####Fashion Intern: REJI HAMILTON ([id number])[facility] ([facility])[address] WBC (Bld) [#/Vol] 6.0 10*3/uL Normal 3.6-10.7 [facility] Comment on above: Performed By: #### L [id number] ####Fashion Intern: REJI HAMILTON ([id number])[facility] ([facility])[address] COMPREHENSIVE METABOLIC PANE Fernando 02-03-2025 Albumin [Mass/Vol] 2.4 g/dL Low 3.1-4.5 [facility] Comment on above: Performed By: #### L [id number] ####Fashion Intern: REJI HAMILTON ([id number])[facility] ([facility])[address] [place] [address] [place] ALP [Catalytic activity/Vol] 84 U/L Normal 40-150 [facility] Comment on above: Performed By: #### L [id number] ####Fashion Intern: REJI BAUTISTACAIN ([id number])[facility] [place] ([facility])[address] [place] [address] [place] ALT [Catalytic activity/Vol] U/L Normal <30 [facility] Comment on above: Performed By: #### L [id number] ####Fashion Intern: REJI HAMILTON ([id number])[facility] [place] ([facility])[address] Anion gap [Moles/Vol] 9 mmol/L Normal 3-13 [facility] Comment on above: Performed By: #### L [id number] ####Fashion Intern: REJI HAMILTON ([id number])[facility] [place] ([facility])[address] AST [Catalytic activity/Vol] 14 U/L Normal <34 [facility] Comment on above: Performed By: #### L [id number] ####Fashion Intern: REJI HAMILTON ([id number])[facility] [place] ([facility])[address] Bilirubin [Mass/Vol] 0.2 mg/dL Normal <1.2 [facility] Comment on above: Performed By: #### L [id number] ####Fashion Intern: REJI HAMILTON ([id number])[facility] [place] ([facility])[address] Calcium [Mass/Vol] 8.0 mg/dL Low 8.8-10.0 [facility] Comment on above: Performed By: #### L [id number] ####Fashion Intern: REJI HAMILTON ([id number])[facility] [place] ([facility])[address] [place] [address] [place] Chloride [Moles/Vol] 114 mmol/L High 98-107 [facility] Comment on above: Performed By: #### L [id number] ####Fashion Intern: REJI HAMILTON ([id number])[facility] [place] ([facility] CO2 [Moles/Vol] 24 mmol/L Normal 23-31 [facility] Comment on above: Performed By: #### L [id number] ####Fashion Intern: REJI HAMILTON ([id number])[facility] ([facility] Creatinine [Mass/Vol] 0.94 mg/dL Normal 0.58-1.12 [facility] Comment on above: Performed By: #### L [id number] ####Fashion Intern: REJI HAMILTON ([id number])[facility] ([facility])[address] GLOMERULAR FILTRATION RATE ML/MIN/1.73 SQ M.PREDICTED 63.0 mL/min/1.73m*2 Normal >60.0 [facility] Comment on above: Result Comment: Calc ulation based on the Chronic Kidney Disease Epidemiology Collaboration (CKD-EPI) equation refit without adjustment for race Performed By: #### L [id number] ####Fashion Intern: REJI HAMILTON ([id number])[facility] ([facility])[address] Glucose [Mass/Vol] 236 mg/dL High 82-115 [facility] Comment on above: Performed By: #### L [id number] ####Fashion Intern: REJI HAMILTON ([id number])[facility] ([facility])[address] [place] [address] [place] Potassium [Moles/Vol] 3.6 mmol/L Normal 3.5-5.1 [facility] Comment on above: Result Comment: [facility] potassium values may be up to 0.5 mmol/L lower than serum values. Performed By: #### L [id number] ####Fashion Intern: REJI HAMILTON ([id number])[facility] ([facility] Protein [Mass/Vol] 5.4 g/dL Low 6.4-8.3 [facility] Comment on above: Performed By: #### L [id number] ####Fashion Intern: REJI HAMILTON ([id number])[facility] [place] ([facility])[address] Sodium [Moles/Vol] 147 mmol/L High 136-145 [facility] Comment on above: Performed By: #### L [id number] ####Fashion Intern: REJI CARBALLOCER ([id number])[facility] [place] ([facility])[address] Urea nitrogen [Mass/Vol] 12 mg/dL Normal 9-23 [facility] Comment on above: Performed By: #### L [id number] ####Fashion Intern: REJI HAMILTON ([id number])[facility] HOSPITALMelissa STONEN (SBHLAB)[address] Comprehensive metabolic 1998 panelon 02-03-2025 Albumin [Mass/Vol] 2.4 g/dL Low 3.1 - 4.5 g/dL [facility] ALP [Catalytic activity/Vol] 84 U/L 40 - 150 U/L [facility] ALT [Catalytic activity/Vol] U/L NINF - 30 U/L [facility] Anion gap [Moles/Vol] 9 mmol/L 3 - 13 mmol/L [facility] AST [Catalytic activity/Vol] 14 U/L NINF - 34 U/L [facility] Bilirubin [Mass/Vol] 0.2 mg/dL NINF - 1.2 mg/dL [facility] Calcium [Mass/Vol] 8 mg/dL Low 8.8 - 10. 0 mg/dL [facility] Chloride [Moles/Vol] 114 mmol/L High 98 - 10 7 mmol/L [facility] CO2 [Moles/Vol] 24 mmol/L 23 - 31 mmol/L [facility] Creatinine [Mass/Vol] 0.94 mg/dL 0.58 - 1.12 mg/dL [facility] GFR/1.73 sq M.predicted (S/P/Bld) [Vol rate/Area] 63 mL/min - PINF [facility] Comment on above: Calculation based on the Chronic Kidney Disease Epidemiology Collaboration (CKD-EPI) equation refit without adjustment for race Glucose [Mass/Vol] 236 mg/dL High 82 - 115 mg/dL [facility] Interpretation and review of laboratory results Abnormal [facility] Potassium [Moles/Vol] 3.6 mmol/L 3.5 - 5.1 mmol/L [facility] Comment on above: Plasma potassium pietro ues may be up to 0.5 mmol/L lower than serum values. Protein [Mass/Vol] 5.4 g/dL Low 6.4 - 8.3 g/dL [facility] Sodium [Moles/Vol] 147 mmol/L High 136 - 145 mmol/L [facility] Urea nitrogen [Mass/Vol] 12 mg/dL 9 - 23 mg/dL [facility] Consulton 02-03-2025 Consult Normal [facility] System [facility] Laboratory - Chemistry and C hemistry - challengeon 02-03-2025 Glucose [Mass/Vol] 192 mg/dL High 70 - 100 mg/dL [facility] Glucose [Mass/Vol] 162 mg/dL High 70 - 100 mg/dL [facility] Glucose [Mass/Vol] 218 mg/dL High 70 - 100 mg/dL [facility] Glucose [Mass/Vol] 238 mg/dL High 70 - 100 mg/dL [facility] Laboratory - Microbiology an d Antimicrobial susceptibilityon 02-03-2025 Bacteria identified Cx Nom (Bld) No growth at 5 days [facility] No Panel Informationon 02-03 Interpretation and review of laboratory results Abnormal [facility] Performed by: Filemon Chavez [facility] [id number] CLIA ID: [id number] [facility] Interpretation and review of laboratory results Abnormal [facility] Performed by: Filemon Chavez [facility] [address] CLIA ID: [id number] [facility] Interpretation and review of laboratory results Abnormal [facility] Performed by: Filemon Chavez [facility] [id number] CLIA ID: [id number] [facility] Interpretation and review of laboratory results Abnormal [facility] Performed by: Summa Vicco, [address] [place] [address] CLIA ID: [id number] [facility] Nursing Noteon 02-03-2025 Nursing Note Normal [facility] Progress Noteon 02-03-2025 Progress Note Normal [facility] [id number] 02-02-2025 [id number] Normal [facility] Laboratory - Chemistry and C hemistry - challengeon 02-02-2025 Glucose [Mass/Vol] 267 mg/dL High 70 - 100 mg/dL [facility] Glucose [Mass/Vol] 251 mg/dL High 70 - 100 mg/dL [facility] Glucose [Mass/Vol] 242 mg/dL High 70 - 100 mg/dL [facility] Glucose [Mass/Vol] 179 mg/dL High 70 - 100 mg/dL [facility] No Panel Informationon 02-02 Interpretation and review of laboratory results Abnormal [facility] Performed by: Bentley Serna [address] [place] [address] CLIA ID: [id number] [facility] Interpretation and review of laboratory results Abnormal [facility] Performed by: Bentley Serna [address] [place] [address] CLIA ID: [id number] [facility] Interpretation and review of laboratory results Abnormal [facility] Performed by: Bentley Serna [address] [place] [address] CLIA ID: [id number] [facility] Interpretation and review of laboratory results Abnormal [facility] Performed by: Bentley Serna [address] [place] [address] CLIA ID: [id number] [facility] Nursing Noteon 02-02-2025 Nursing Note Normal [facility] Progress Noteon 02-02-2025 Progress Note Normal [facility] Bacteria identified Cx Nom ( U)Ordered By: Shante Khoury on 02-01-2025 Interpretation and review of laboratory results Abnormal [facility] Laboratory - Chemistry and C hemistry - challengeon 02-01-2025 Glucose [Mass/Vol] 293 mg/dL High 70 - 100 mg/dL [facility] Glucose [Mass/Vol] 192 mg/dL High 70 - 100 mg/dL [facility] Glucose [Mass/Vol] 266 mg/dL High 70 - 100 mg/dL [facility] Glucose [Mass/Vol] 147 mg/dL High 70 - 100 mg/dL [facility] Laboratory - Microbiology an d Antimicrobial susceptibilityOrdered By: Shante Khoury on 02-01-2025 Bacteria identified Cx Nom (U) Normal urogenital gaby present [facility] Bacteria identified Cx Nom (U) >100,000 CFU/mL Escherichia coli Abnormal [facility] Bacteria identified Cx Nom (U) >100,000 CFU/mL Klebsiella pneumoniae Abnormal [facility] No Panel Informationon 02-01 Interpretation and review of laboratory results Abnormal [facility] Performed by: [facility], [address] [place] [address] CLIA ID: [id number] [facility] Interpretation and review of laboratory results Abnormal [facility] Performed by: Bentley Serna [address] [place] [address] CLIA ID: [id number] [facility] Interpretation and review of laboratory results Abnormal [facility] Performed by: Bentley Serna [address] [place] [address] CLIA ID: [id number] [facility] Interpretation and review of laboratory results Abnormal [facility] Performed by: Bentley Serna [address] [place] [address] CLIA ID: [id number] [facility] Nursing Noteon 02-01-2025 Nursing Note Pt throughout shift refusing turns and incontinece care. Pt educated multiple times on relieving pressure to help preent bed sores. Pt declined. Pt also refusing to have purwick removed at this time. Dr. Goetz Notified Normal [facility] Nursing Note Normal [facility] Progress Noteon 02-01-2025 Progress Note Normal [facility] [id number] 01-31-2025 [id number] Normal [facility] BASIC METABOLIC PANELon 110 Anion gap [Moles/Vol] 11 mmol/L Normal 3-13 [facility] Comment on above: Performed By: #### L [id number] ####Fashion Intern: REJI HAMILTON ([id number])BENTLEY SERNA (SBHLAB)[address] Calcium [Mass/Vol] 8.1 mg/dL Low 8.8-10.0 [facility] Comment on above: Performed By: #### L AB15 ####Fashion Intern: REJI HAMILTON ([id number])BENTLEY CHRISTYBELLA (SBHLAB)[address] Chloride [Moles/Vol] 111 mmol/L High 98-107 [facility] Comment on above: Performed By: #### L AB15 ####Fashion Intern: REJI HAMILTON ([id number])[facility] HOS[facility]ITALMelissa BARBBELLA (SBHLAB)[address] CO2 [Moles/Vol] 27 mmol/L Normal 23-31 [facility] Comment on above: Performed By: #### L AB15 ####Fashion Intern: REJI HAMILTON ([id number])[facility]ITALMelissa CHRISTYBELLA (SBHLAB)[address] Creatinine [Mass/Vol] 1.08 mg/dL Normal 0.58-1.12 [facility] Comment on above: Performed By: #### L AB15 ####Fashion Intern: REJI HAMILTON ([id number])[facility]OS[facility]ITALMelissa CHRISTYBELLA (SBHLAB)[address] GLOMERULAR FILTRATION RATE ML/MIN/1.73 SQ M.PREDICTED 53.3 mL/min/1.73m*2 Low >60.0 [facility] Comment on above: Result Comment: Calc ulation based on the Chronic Kidney Disease Epidemiology Collaboration (CKD-EPI) equation refit without adjustment for race Performed By: #### L [id number] ####Fashion Intern: REJI HAMILTON ([id number])[facility]OS[facility]ITALMelissa JAELYNBELLA (SBHLAB)[address] Glucose [Mass/Vol] 114 mg/dL Normal 82-115 [facility] Comment on above: Performed By: #### L AB15 ####Fashion Intern: REJI HAMILTON ([id number])[facility]ITALMelissa SERNA (SBHLAB)[address] Potassium [Moles/Vol] 3.8 mmol/L Normal 3.5-5.1 [facility] Comment on above: Result Comment: [facility] potassium values may be up to 0.5 mmol/L lower than serum values. Performed By: #### L AB15 ####Fashion Intern: REJI HAMILTON ([id number])[facility] (SBHLAB)[address] Sodium [Moles/Vol] 149 mmol/L High 136-145 [facility] Comment on above: Performed By: #### L AB15 ####Fashion Intern: REJI HAMILTON ([id number])[facility] (SBHLAB)[address] Urea nitrogen [Mass/Vol] 17 mg/dL Normal 9-23 [facility] Comment on above: Performed By: #### L AB15 ####Fashion Intern: REJI HAMILTON ([id number])[facility] (SBHLAB)[address] [place] [address] Basic metabolic 1998 panelon 01-31-2025 Anion gap [Moles/Vol] 11 mmol/L 3 - 13 mmol/L [facility] Calcium [Mass/Vol] 8.1 mg/dL Low 8.8 - 10. 0 mg/dL [facility] Chloride [Moles/Vol] 111 mmol/L High 98 - 10 7 mmol/L [facility] CO2 [Moles/Vol] 27 mmol/L 23 - 31 mmol/L [facility] Creatinine [Mass/Vol] 1.08 mg/dL 0.58 - 1.12 mg/dL [facility] GFR/1.73 sq M.predicted (S/P/Bld) [Vol rate/Area] 53.3 mL/min Low - PINF [facility] Comment on above: Calculation based on the Chronic Kidney Disease Epidemiology Collaboration (CKD-EPI) equation refit without adjustment for race Glucose [Mass/Vol] 114 mg/dL 82 - 115 mg/dL [facility] Interpretation and review of laboratory results Abnormal [facility] Potassium [Moles/Vol] 3.8 mmol/L 3.5 - 5.1 mmol/L [facility] Comment on above: Plasma potassium pietro ues may be up to 0.5 mmol/L lower than serum values. Sodium [Moles/Vol] 149 mmol/L High 136 - 145 mmol/L [facility] Urea nitrogen [Mass/Vol] 17 mg/dL 9 - 23 mg/dL [facility] CBC W Auto Differential pane l (Bld)on 01-31-2025 Basophils (Bld) [#/Vol] 0 10*3/uL 0.0 - 0.2 10*3/uL [facility] Basophils/100 WBC (Bld) 0.5 % 0.0 - 2.0 % [facility] Eosinophils (Bld) [#/Vol] 0.4 10*3/uL 0.0 - 0.5 10*3/uL [facility] Eosinophils/100 WBC (Bld) 7.4 % High 0.0 - 6.0 % [facility] Erythrocyte distribution width (RBC) [Ratio] 15.8 % High 11.5 - 15.0 % [facility] Hematocrit (Bld) [Volume fraction] 33.1 % Low 35.0 - 47.0 % [facility] Hemoglobin (Bld) [Mass/Vol] 10.4 g/dL Low 11.7 - 16.0 g/dL [facility] Immature granulocytes (Bld) [#/Vol] 0 10*3/uL NINF - 0.1 10*3/uL [facility] Immature granulocytes/100 WBC (Bld) 0.2 % 0.0 - 2.0 % [facility] Interpretation and review of laboratory results Abnormal [facility] Lymphocytes (Bld) [#/Vol] 1.9 10*3/uL 1.0 - 4.3 10*3/uL [facility] Lymphocytes/100 WBC (Bld) 33.2 % 15.0 - 45.0 % [facility] MCH (RBC) [Entitic mass] 32 pg 26.0 - 34.0 pg [facility] MCHC (RBC) [Mass/Vol] 31.4 % 30.5 - 36.0 % [facility] MCV (RBC) [Entitic vol] 101.8 fL High 77.0 - 99.0 fL [facility] Monocytes (Bld) [#/Vol] 0.4 10*3/uL 0.0 - 0.9 10*3/uL [facility] Monocytes/100 WBC (Bld) 7.2 % 5.0 - 13.0 % [facility] Neutrophils (Bld) [#/Vol] 3 10*3/uL 1.8 - 7.5 10*3/uL [facility] Neutrophils/100 WBC (Bld) 51.5 % 38.0 - 82.0 % [facility] Nucleated RBC/100 WBC (Bld) [Ratio] 0 % [facility] Platelet mean volume (Bld) [Entitic vol] 11.8 fL 9.0 - 12.7 fL [facility] Platelets (Bld) [#/Vol] 195 10*3/uL 140 - 440 10*3/uL [facility] RBC (Bld) [#/Vol] 3.25 10*6/uL Low 3.80 - 5.2 0 10*6/uL [facility] WBC (Bld) [#/Vol] 5.8 10*3/uL 3.6 - 10.7 10*3/uL [facility] CBC WITH AUTO DIFFERENTIALon 01-31-2025 Basophils (Bld) [#/Vol] 0.0 10*3/uL Normal 0.0-0.2 [facility] Comment on above: Performed By: #### L [id number] ####Fashion Intern: REJI HAMILTON ([id number])[facility] ([facility])[address] [place] [address] Basophils/100 WBC (Bld) 0.5 % Normal 0.0-2.0 [facility] Comment on above: Performed By: #### L [id number] ####Fashion Intern: REJI HAMILTON ([id number])[facility]ITALA [place] (SBHLAB)[address] Eosinophils (Bld) [#/Vol] 0.4 10*3/uL Normal 0.0-0.5 [facility] Comment on above: Performed By: #### L [id number] ####Fashion Intern: REJI HAMILTON ([id number])[facility]ITALA [facility] (SBAB)[address] Eosinophils/100 WBC (Bld) 7.4 % High 0.0-6.0 [facility] Comment on above: Performed By: #### L [id number] ####Fashion Intern: REJI BAUTISTACAIN ([id number])[facility]ITALA [place] (SBHLAB)[address] Erythrocyte distribution width (RBC) [Ratio] 15.8 % High 11.5-15.0 [facility] Comment on above: Performed By: #### L [id number] ####Fashion Intern: REJI HILLEDIN ([id number])[facility]A [place] (SBHLAB)[address] Hematocrit (Bld) [Volume fraction] 33.1 % Low 35.0-47.0 [facility] Comment on above: Performed By: #### L [id number] ####Fashion Intern: REJI BAUTISTACAIN ([id number])[facility]A [place] (SBHLAB)[address] Hemoglobin (Bld) [Mass/Vol] 10.4 g/dL Low 11.7-16.0 [facility] Comment on above: Performed By: #### L [id number] ####Fashion Intern: REJI BAUTISTACAIN ([id number])[facility]A [place] (SBHLAB)[address] IMMATURE GRANS % 0.2 % Normal 0.0-2.0 [facility] Comment on above: Performed By: #### L [id number] ####Fashion Intern: REJI BAUTISTACAIN ([id number])[facility]A [place] (SBHLAB)[address] IMMATURE GRANS ABSOLUTE 0.0 10*3/uL Normal <0.1 [facility] Comment on above: Performed By: #### L [id number] ####Fashion Intern: REJI HAMILTON ([id number])[facility] [place] (SBHLAB)[address] Lymphocytes (Bld) [#/Vol] 1.9 10*3/uL Normal 1.0-4.3 [facility] Comment on above: Performed By: #### L [id number] ####Fashion Intern: REJI BAUTISTACAIN ([id number])[facility]A [place] (SBHLAB)[address] Lymphocytes/100 WBC (Bld) 33.2 % Normal 15.0-45.0 [facility] Comment on above: Performed By: #### L [id number] ####Fashion Intern: REJI HAMILTON ([id number])[facility] [place] (SBHLAB)[address] MCH (RBC) [Entitic mass] 32.0 pg Normal 26.0-34.0 [facility] Comment on above: Performed By: #### L [id number] ####Fashion Intern: REJI BAUTISTACAIN ([id number])[facility] [place] (SBHLAB)[address] MCHC 31.4 % Normal 30.5-36.0 [facility] Comment on above: Performed By: #### L [id number] ####Fashion Intern: REJI BAUTISTACAIN ([id number])[facility] [place] (SBHLAB)[address] MCV (RBC) [Entitic vol] 101.8 fL High 77.0-99.0 [facility] Comment on above: Performed By: #### L [id number] ####Fashion Intern: REJI BAUTISTACAIN ([id number])[facility] [place] (SBHLAB)[address] Monocytes (Bld) [#/Vol] 0.4 10*3/uL Normal 0.0-0.9 [facility] Comment on above: Performed By: #### L [id number] ####Fashion Intern: REJI HAMILTON ([id number])[facility] [place] (SBHLAB)[address] Monocytes/100 WBC (Bld) 7.2 % Normal 5.0-13.0 [facility] Comment on above: Performed By: #### L [id number] ####Fashion Intern: REJI BAUTISTACAIN ([id number])[facility] [place] (SBHLAB)[address] NEUTROPHILS ABSOLUTE 3.0 10*3/uL Normal 1.8-7.5 [facility] Comment on above: Performed By: #### L [id number] ####Fashion Intern: REJI HILLEDIN ([id number])[facility] [place] (SBHLAB)[address] Neutrophils/100 WBC (Bld) 51.5 % Normal 38.0-82.0 [facility] Comment on above: Performed By: #### L [id number] ####Fashion Intern: REJI BAUTISTACAIN ([id number])[facility]A [place] (SBHLAB)[address] NRBC 0.0 /100 WBCs Normal 0.0-2.0 [facility] Comment on above: Performed By: #### L [id number] ####Fashion Intern: REJI BAUTISTACAIN ([id number])[facility] [place] (SBHLAB)[address] Platelet mean volume (Bld) [Entitic vol] 11.8 fL Normal 9.0-12.7 [facility] Comment on above: Performed By: #### L [id number] ####Fashion Intern: REJI BAUTISTACAIN ([id number])[facility]A [place] (SBHLAB)[address] [place] [address] [place] Platelets (Bld) [#/Vol] 195 10*3/uL Normal 140-440 [facility] Comment on above: Performed By: #### L [id number] ####Fashion Intern: REJI BAUTISTACAIN ([id number])[facility]A [place] (SBHLAB)[address] [place] [address] [place] RBC (Bld) [#/Vol] 3.25 10*6/uL Low 3.80-5.20 [facility] Comment on above: Performed By: #### L [id number] ####Fashion Intern: REJI HAMILTON ([id number])[facility]ITALMelissa SERNA (SBHLAB)[address] [place] [address] WBC (Bld) [#/Vol] 5.8 10*3/uL Normal 3.6-10.7 [facility] Comment on above: Performed By: #### L [id number] ####Fashion Intern: REJI HAMILTON ([id number])[facility]OS[facility]ITALMelissa CHRISTYALBUQUERQUE INDIAN DENTAL CLINICDarian (SBHLAB)[address] [place] [address] Laboratory - Chemistry and C hemistry - challengeon 01-31-2025 Glucose [Mass/Vol] 283 mg/dL High 70 - 100 mg/dL [facility] Glucose [Mass/Vol] 124 mg/dL High 70 - 100 mg/dL [facility] Glucose [Mass/Vol] 144 mg/dL High 70 - 100 mg/dL [facility] No Panel Informationon 01-31 Interpretation and review of laboratory results Abnormal [facility] Performed by: Bentley Serna [address] [place] [address] CLIA ID: [id number] [facility] Interpretation and review of laboratory results Abnormal [facility] Performed by: Bentley Serna [address] [place] [address] CLIA ID: [id number] [facility] Interpretation and review of laboratory results Abnormal [facility] Performed by: [facility] S[facility] [address] [place] [address] CLIA ID: [id number] [facility] Nursing Noteon 01-31-2025 Nursing Note Patient refused to t natty her night medications was only able to administer her insulin shots. Will continue to monitor Normal [facility] Nursing Note Patient refusing all medications, refusing to have blood glucose checked, and refusing to be turned. Normal [facility] Progress Noteon 01-31-2025 Progress Note Normal [facility] [id number] 01-30-2025 [id number] Normal [facility] [id number] Normal [facility] BASIC METABOLIC PANELon 10-3 Anion gap [Moles/Vol] 10 mmol/L Normal 3-13 [facility] Comment on above: Performed By: #### L AB15 ####Fashion Intern: REJI HAMILTON ([id number])[facility] HOS[facility]ITALMelissa STON[place] (SBHLAB)[address] Calcium [Mass/Vol] 8.0 mg/dL Low 8.8-10.0 [facility] Comment on above: Performed By: #### L AB15 ####Fashion Intern: REJI HAMILTON ([id number])[facility] [place] (SBHLAB)[address] Chloride [Moles/Vol] 107 mmol/L Normal 98-107 [facility] Comment on above: Performed By: #### L AB15 ####Fashion Intern: REJI HAMILTON ([id number])[facility] [place] (SBHLAB)[address] CO2 [Moles/Vol] 26 mmol/L Normal 23-31 [facility] Comment on above: Performed By: #### L AB15 ####Fashion Intern: REJI HAMILTON ([id number])[facility] [place] (SBHLAB)[address] Creatinine [Mass/Vol] 1.00 mg/dL Normal 0.58-1.12 [facility] Comment on above: Performed By: #### L AB15 ####Fashion Intern: REJI HAMILTON ([id number])[facility] HOSPITALMelissa [facility] (SBHLAB)[address] [place] [address] [place] GLOMERULAR FILTRATION RATE ML/MIN/1.73 SQ M.PREDICTED 58.5 mL/min/1.73m*2 Low >60.0 [facility] Comment on above: Result Comment: Calc ulation based on the Chronic Kidney Disease Epidemiology Collaboration (CKD-EPI) equation refit without adjustment for race Performed By: #### L AB15 ####Fashion Intern: REJI HAMILTON ([id number])[facility] HOS[facility]ITALMelissa SERNA (SBHLAB)[address] Glucose [Mass/Vol] 208 mg/dL High 82-115 [facility] Comment on above: Performed By: #### L AB15 ####Fashion Intern: REJI CARBALLOCER ([id number])[facility] (SBHLAB)[address] Potassium [Moles/Vol] 3.6 mmol/L Normal 3.5-5.1 [facility] Comment on above: Result Comment: [facility] potassium values may be up to 0.5 mmol/L lower than serum values. Performed By: #### L AB15 ####Fashion Intern: REJI HAMILTON ([id number])[facility] HOS[facility]ITALMelissa [facility]YCOBALT [facility] (SBHLAB)[address] Sodium [Moles/Vol] 143 mmol/L Normal 136-145 [facility] Comment on above: Performed By: #### L AB15 ####Fashion Intern: REJI HAMILTON ([id number])[facility] (SBHLAB)[address] Urea nitrogen [Mass/Vol] 21 mg/dL Normal 9-23 [facility] Comment on above: Performed By: #### L [id number] ####Fashion Intern: REJI HAMILTON ([phone])[facility] (HLAB)[address] Basic metabolic 1998 panelon 01-30-2025 Anion gap [Moles/Vol] 10 mmol/L 3 - 13 mmol/L [facility] Calcium [Mass/Vol] 8 mg/dL Low 8.8 - 10. 0 mg/dL [facility] Chloride [Moles/Vol] 107 mmol/L 98 - 10 7 mmol/L [facility] CO2 [Moles/Vol] 26 mmol/L 23 - 31 mmol/L [facility] Creatinine [Mass/Vol] 1 mg/dL 0.58 - 1.12 mg/dL [facility] GFR/1.73 sq M.predicted (S/P/Bld) [Vol rate/Area] 58.5 mL/min Low - PINF [facility] [employer] Comment on above: Calculation based on the Chronic Kidney Disease Epidemiology Collaboration (CKD-EPI) equation refit without adjustment for race Glucose [Mass/Vol] 208 mg/dL High 82 - 115 mg/dL [facility] Interpretation and review of laboratory results Abnormal [facility] Potassium [Moles/Vol] 3.6 mmol/L 3.5 - 5.1 mmol/L [facility] Comment on above: Plasma potassium pietro ues may be up to 0.5 mmol/L lower than serum values. Sodium [Moles/Vol] 143 mmol/L 136 - 145 mmol/L [facility] [employer] Urea nitrogen [Mass/Vol] 21 mg/dL 9 - 23 mg/dL [facility] CBC W Auto Differential pane l (Bld)on 01-30-2025 Basophils (Bld) [#/Vol] 0 10*3/uL 0.0 - 0.2 10*3/uL [facility] [employer] Basophils/100 WBC (Bld) 0.4 % 0.0 - 2.0 % [facility] [employer] Eosinophils (Bld) [#/Vol] 0.4 10*3/uL 0.0 - 0.5 10*3/uL [facility] [employer] Eosinophils/100 WBC (Bld) 5.4 % 0.0 - 6.0 % [facility] [employer] Erythrocyte distribution width (RBC) [Ratio] 15.8 % High 11.5 - 15.0 % [facility] [employer] Hematocrit (Bld) [Volume fraction] 36.1 % 35.0 - 47.0 % [facility] [employer] Hemoglobin (Bld) [Mass/Vol] 11.6 g/dL Low 11.7 - 16.0 g/dL [facility] [employer] Immature granulocytes (Bld) [#/Vol] 0 10*3/uL NINF - 0.1 10*3/uL [facility] [employer] Immature granulocytes/100 WBC (Bld) 0.1 % 0.0 - 2.0 % [facility] Interpretation and review of laboratory results Abnormal [facility] [employer] Lymphocytes (Bld) [#/Vol] 1.9 10*3/uL 1.0 - 4.3 10*3/uL [facility] [employer] Lymphocytes/100 WBC (Bld) 28.5 % 15.0 - 45.0 % [facility] [employer] MCH (RBC) [Entitic mass] 32.2 pg 26.0 - 34.0 pg [facility] MCHC (RBC) [Mass/Vol] 32.1 % 30.5 - 36.0 % [facility] MCV (RBC) [Entitic vol] 100.3 fL High 77.0 - 99.0 fL [facility] Monocytes (Bld) [#/Vol] 0.5 10*3/uL 0.0 - 0.9 10*3/uL [facility] Monocytes/100 WBC (Bld) 7.5 % 5.0 - 13.0 % [facility] Neutrophils (Bld) [#/Vol] 3.9 10*3/uL 1.8 - 7.5 10*3/uL [facility] Neutrophils/100 WBC (Bld) 58.1 % 38.0 - 82.0 % [facility] Nucleated RBC/100 WBC (Bld) [Ratio] 0 % [facility] Platelet mean volume (Bld) [Entitic vol] 12.5 fL 9.0 - 12.7 fL [facility] Platelets (Bld) [#/Vol] 192 10*3/uL 140 - 440 10*3/uL [facility] RBC (Bld) [#/Vol] 3.6 10*6/uL Low 3.80 - 5.2 0 10*6/uL [facility] WBC (Bld) [#/Vol] 6.7 10*3/uL 3.6 - 10.7 10*3/uL [facility] CBC WITH AUTO DIFFERENTIALon 01-30-2025 Basophils (Bld) [#/Vol] 0.0 10*3/uL Normal 0.0-0.2 [facility] Comment on above: Performed By: #### L [id number] ####Fashion Intern: REJI HAMILTON ([phone])[facility] (SBAB)[address] [place] [address] Basophils/100 WBC (Bld) 0.4 % Normal 0.0-2.0 [facility] Comment on above: Performed By: #### L [id number] ####Fashion Intern: REJI HAMILTON ([phone])[facility] (SBHLAB)[address] Eosinophils (Bld) [#/Vol] 0.4 10*3/uL Normal 0.0-0.5 [facility] Comment on above: Performed By: #### L [id number] ####Fashion Intern: REJI HAMILTON ([phone])[facility] (SBHLAB)[address] Eosinophils/100 WBC (Bld) 5.4 % Normal 0.0-6.0 [facility] Comment on above: Performed By: #### L [id number] ####Fashion Intern: REJI HAMILTON ([phone])[facility] [place] (SBAB)[address] Erythrocyte distribution width (RBC) [Ratio] 15.8 % High 11.5-15.0 [facility] Comment on above: Performed By: #### L [id number] ####Fashion Intern: REJI HAMILTON ([phone])[facility] (SBAB)[address] Hematocrit (Bld) [Volume fraction] 36.1 % Normal 35.0-47.0 [facility] Comment on above: Performed By: #### L [id number] ####Fashion Intern: REJI HAMILTON ([id number])[facility] (SBAB)[address] Hemoglobin (Bld) [Mass/Vol] 11.6 g/dL Low 11.7-16.0 [facility] Comment on above: Performed By: #### L [id number] ####Fashion Intern: REJI HAMILTON ([id number])[facility] (SBHLAB)[address] IMMATURE GRANS % 0.1 % Normal 0.0-2.0 [facility] Comment on above: Performed By: #### L [id number] ####Fashion Intern: REJI HAMILTON ([phone])[facility] (SBAB)[address] IMMATURE GRANS ABSOLUTE 0.0 10*3/uL Normal <0.1 [facility] Comment on above: Performed By: #### L [id number] ####Fashion Intern: REJI BAUTISTACAIN ([id number])[facility] [place] (SBHLAB)[address] Lymphocytes (Bld) [#/Vol] 1.9 10*3/uL Normal 1.0-4.3 [facility] Comment on above: Performed By: #### L [id number] ####Fashion Intern: REJI BAUTISTACAIN ([phone])[facility] (SBHLAB)[address] Lymphocytes/100 WBC (Bld) 28.5 % Normal 15.0-45.0 [facility] Comment on above: Performed By: #### L [id number] ####Fashion Intern: REJI HAMILTON ([id number])[facility] (SBHLAB)[address] MCH (RBC) [Entitic mass] 32.2 pg Normal 26.0-34.0 [facility] Comment on above: Performed By: #### L [id number] ####Fashion Intern: REJI BAUTISTACAIN ([phone])[facility] (SBHLAB)[address] [place] [address] MCHC 32.1 % Normal 30.5-36.0 [facility] Comment on above: Performed By: #### L [id number] ####Fashion Intern: REJI BAUTISTACAIN ([phone])[facility] [place] (SBHLAB)[address] MCV (RBC) [Entitic vol] 100.3 fL High 77.0-99.0 [facility] Comment on above: Performed By: #### L [id number] ####Fashion Intern: REJI HAMILTON ([id number])[facility] (SBHLAB)[address] Monocytes (Bld) [#/Vol] 0.5 10*3/uL Normal 0.0-0.9 [facility] Comment on above: Performed By: #### L [id number] ####Fashion Intern: REJI BAUTISTACAIN ([phone])[facility] [place] (SBHLAB)[address] Monocytes/100 WBC (Bld) 7.5 % Normal 5.0-13.0 [facility] Comment on above: Performed By: #### L [id number] ####Fashion Intern: REJI BAUTISTACAIN ([phone])[facility] [place] (SBHLAB)[address] NEUTROPHILS ABSOLUTE 3.9 10*3/uL Normal 1.8-7.5 [facility] Comment on above: Performed By: #### L [id number] ####Fashion Intern: REJI BAUTISTACAIN ([id number])[facility] [place] (SBHLAB)[address] Neutrophils/100 WBC (Bld) 58.1 % Normal 38.0-82.0 [facility] Comment on above: Performed By: #### L [id number] ####Fashion Intern: REJI BAUTISTACAIN ([phone])[facility] [place] (SBHLAB)[address] NRBC 0.0 /100 WBCs Normal 0.0-2.0 [facility] Comment on above: Performed By: #### L [id number] ####Fashion Intern: REJI BAUTISTACAIN ([id number])[facility] [place] (SBHLAB)[address] Platelet mean volume (Bld) [Entitic vol] 12.5 fL Normal 9.0-12.7 [facility] Comment on above: Performed By: #### L [id number] ####Fashion Intern: REJI HAMILTON ([phone])[facility] [place] (SBHLAB)[address] [place] [address] [place] Platelets (Bld) [#/Vol] 192 10*3/uL Normal 140-440 [facility] Comment on above: Performed By: #### L [id number] ####Fashion Intern: REJI HAMILTON ([phone])[facility]ITAL[facility]issa SER[facility] (SBHLAB)[address] [place] [address] RBC (Bld) [#/Vol] 3.60 10*6/uL Low 3.80-5.20 [facility] Comment on above: Performed By: #### L [id number] ####Fashion Intern: REJI HAMILTON ([id number])[facility]ITALMelissa [facility] (SBHLAB)[address] [place] [address] WBC (Bld) [#/Vol] 6.7 10*3/uL Normal 3.6-10.7 [facility] Comment on above: Performed By: #### L [id number] ####Fashion Intern: REJI HAMILTON ([phone])[facility] (SBHLAB)[address] [place] [address] Laboratory - Chemistry and C hemistry - challengeon 01-30-2025 Glucose [Mass/Vol] 262 mg/dL High 70 - 100 mg/dL [facility] Glucose [Mass/Vol] 318 mg/dL High 70 - 100 mg/dL [facility] No Panel Informationon 01-30 Interpretation and review of laboratory results Abnormal [facility] Performed by: [facility] [address] [place] [address] CLIA ID: [id number] [facility] Interpretation and review of laboratory results Abnormal [facility] Performed by: Bentley Serna [address] [place] [id number] CLIA ID: [id number] [facility] Nursing Noteon 01-30-2025 Nursing Note Patient refusing all meds at present. Patient refusing to allow staff to turn patient. Patient screaming to get out of her room. Patient incontinent of urine. Normal [facility] Nursing Note Normal [facility] Progress Noteon 01-30-2025 Progress Note Normal [facility] Progress Note Normal [facility] Progress Note Normal [facility] Progress Note Normal [facility] BLOOD CULTUREon 01-29-2025 Bacteria identified Cx Nom (Bld) Normal [facility] Comment on above: Performed By: #### L [id number] ####Fashion Intern: MERLE RODRIGUES ([id number])[facility] [place] [address] CBC W Auto Differential pane l (Bld)on 01-29-2025 Basophils (Bld) [#/Vol] 0 10*3/uL 0.0 - 0.2 10*3/uL [facility] Basophils/100 WBC (Bld) 0.3 % 0.0 - 2.0 % [facility] Eosinophils (Bld) [#/Vol] 0.2 10*3/uL 0.0 - 0.5 10*3/uL [facility] Eosinophils/100 WBC (Bld) 3.2 % 0.0 - 6.0 % [facility] Erythrocyte distribution width (RBC) [Ratio] 15.5 % High 11.5 - 15.0 % [facility] Hematocrit (Bld) [Volume fraction] 35 % 35.0 - 47.0 % [facility] Hemoglobin (Bld) [Mass/Vol] 11.3 g/dL Low 11.7 - 16.0 g/dL [facility] Immature granulocytes (Bld) [#/Vol] 0 10*3/uL NINF - 0.1 10*3/uL [facility] Immature granulocytes/100 WBC (Bld) 0.3 % 0.0 - 2.0 % [facility] Interpretation and review of laboratory results Abnormal [facility] Lymphocytes (Bld) [#/Vol] 2.1 10*3/uL 1.0 - 4.3 10*3/uL [facility] Lymphocytes/100 WBC (Bld) 31.6 % 15.0 - 45.0 % [facility] MCH (RBC) [Entitic mass] 32.3 pg 26.0 - 34.0 pg [facility] MCHC (RBC) [Mass/Vol] 32.3 % 30.5 - 36.0 % [facility] MCV (RBC) [Entitic vol] 100 fL High 77.0 - 99.0 fL [facility] Monocytes (Bld) [#/Vol] 0.5 10*3/uL 0.0 - 0.9 10*3/uL [facility] Monocytes/100 WBC (Bld) 7.7 % 5.0 - 13.0 % [facility] Neutrophils (Bld) [#/Vol] 3.8 10*3/uL 1.8 - 7.5 10*3/uL [facility] Neutrophils/100 WBC (Bld) 56.9 % 38.0 - 82.0 % [facility] Nucleated RBC/100 WBC (Bld) [Ratio] 0 % [facility] Platelet mean volume (Bld) [Entitic vol] 11.6 fL 9.0 - 12.7 fL [facility] Platelets (Bld) [#/Vol] 207 10*3/uL 140 - 440 10*3/uL [facility] RBC (Bld) [#/Vol] 3.5 10*6/uL Low 3.80 - 5.2 0 10*6/uL [facility] WBC (Bld) [#/Vol] 6.7 10*3/uL 3.6 - 10.7 10*3/uL [facility] CBC WITH AUTO DIFFERENTIALon 01-29-2025 Basophils (Bld) [#/Vol] 0.0 10*3/uL Normal 0.0-0.2 [facility] Comment on above: Performed By: #### L [id number] ####Fashion Intern: REJI HAMILTON ([phone])[facility] (SBAB)[address] [place] [address] Basophils/100 WBC (Bld) 0.3 % Normal 0.0-2.0 [facility] Comment on above: Performed By: #### L [id number] ####Fashion Intern: REJI HAMILTON ([phone])[facility] (SBHLAB)[address] Eosinophils (Bld) [#/Vol] 0.2 10*3/uL Normal 0.0-0.5 [facility] Comment on above: Performed By: #### L [id number] ####Fashion Intern: REJI HAMILTON ([phone])[facility] (SBHLAB)[address] Eosinophils/100 WBC (Bld) 3.2 % Normal 0.0-6.0 [facility] Comment on above: Performed By: #### L [id number] ####Fashion Intern: REJI HAMILTON ([id number])[facility] (SBHLAB)[address] Erythrocyte distribution width (RBC) [Ratio] 15.5 % High 11.5-15.0 [facility] Comment on above: Performed By: #### L [id number] ####Fashion Intern: REJI BAUTISTACAIN ([id number])[facility] [place] [facility] Hematocrit (Bld) [Volume fraction] 35.0 % Normal 35.0-47.0 [facility] Comment on above: Performed By: #### L [id number] ####Fashion Intern: REJI HAMILTON ([phone])[facility] ([facility] Hemoglobin (Bld) [Mass/Vol] 11.3 g/dL Low 11.7-16.0 [facility] Comment on above: Performed By: #### L [id number] ####Fashion Intern: REJI BAUTISTACAIN ([phone])[facility] ([facility])[address] [place] [address] IMMATURE GRANS % 0.3 % Normal 0.0-2.0 [facility] Comment on above: Performed By: #### L [id number] ####Fashion Intern: REJI HAMILTON ([phone])[facility] (SBHLAB)[address] IMMATURE GRANS ABSOLUTE 0.0 10*3/uL Normal <0.1 [facility] Comment on above: Performed By: #### L [id number] ####Fashion Intern: REJI HAMILTON ([phone])[facility] (SBAB)[address] [place] [address] [place] Lymphocytes (Bld) [#/Vol] 2.1 10*3/uL Normal 1.0-4.3 [facility] Comment on above: Performed By: #### L [id number] ####Fashion Intern: REJI JOY ([id number])[facility] [place] (SBHLAB)[address] Lymphocytes/100 WBC (Bld) 31.6 % Normal 15.0-45.0 [facility] Comment on above: Performed By: #### L [id number] ####Fashion Intern: REJI JOY ([id number])[facility] [place] (SBHLAB)[address] MCH (RBC) [Entitic mass] 32.3 pg Normal 26.0-34.0 [facility] Comment on above: Performed By: #### L [id number] ####Fashion Intern: REJI JOY ([id number])[facility] (SBHLAB)[address] MCHC 32.3 % Normal 30.5-36.0 [facility] Comment on above: Performed By: #### L [id number] ####Fashion Intern: REJI JOY ([id number])[facility] [place] (SBHLAB)[address] MCV (RBC) [Entitic vol] 100.0 fL High 77.0-99.0 [facility] Comment on above: Performed By: #### L [id number] ####Fashion Intern: REJI JOY ([id number])[facility] [place] (SBHLAB)[address] Monocytes (Bld) [#/Vol] 0.5 10*3/uL Normal 0.0-0.9 [facility] Comment on above: Performed By: #### L [id number] ####Fashion Intern: REJI JOY ([phone])[facility] [place] (SBHLAB)[address] [place] [address] [place] Monocytes/100 WBC (Bld) 7.7 % Normal 5.0-13.0 [facility] Comment on above: Performed By: #### L [id number] ####Fashion Intern: REJI HAMILTON ([id number])[facility] [place] (SBHLAB)[address] NEUTROPHILS ABSOLUTE 3.8 10*3/uL Normal 1.8-7.5 [facility] Comment on above: Performed By: #### L [id number] ####Fashion Intern: REJI HAMILTON ([phone])[facility] [place] (SBHLAB)[address] Neutrophils/100 WBC (Bld) 56.9 % Normal 38.0-82.0 [facility] Comment on above: Performed By: #### L [id number] ####Fashion Intern: REJI HAMILTON ([id number])[facility] [place] (SBHLAB)[address] NRBC 0.0 /100 WBCs Normal 0.0-2.0 [facility] Comment on above: Performed By: #### L [id number] ####Fashion Intern: REJI HAMILTON ([id number])[facility] [place] (SBHLAB)[address] Platelet mean volume (Bld) [Entitic vol] 11.6 fL Normal 9.0-12.7 [facility] Comment on above: Performed By: #### L [id number] ####Fashion Intern: REJI HAMILTON ([id number])[facility] [place] (SBHLAB)[address] [place] [address] [place] Platelets (Bld) [#/Vol] 207 10*3/uL Normal 140-440 [facility] Comment on above: Performed By: #### L [id number] ####Fashion Intern: REJI HAMILTON ([id number])[facility] [place] (SBHLAB)[address] [place] [address] [place] RBC (Bld) [#/Vol] 3.50 10*6/uL Low 3.80-5.20 [facility] Comment on above: Performed By: #### L [id number] ####Fashion Intern: REJI HAMILTON ([id number])[facility]ITALMelissa STONEN (SBHLAB)[address] [place] [address] WBC (Bld) [#/Vol] 6.7 10*3/uL Normal 3.6-10.7 [facility] Comment on above: Performed By: #### L [id number] ####Fashion Intern: REJI HAMILTON ([phone])[facility]ITALMelissa STONEN (SBHLAB)[address] [place] [address] COMPLETE URINALYSIS WITH REF TARIQ TO CULTUREon 01-29-2025 BACTERIA (#/HPF) IN URINE Few Abnormal Negative [facility] Comment on above: Performed By: #### L [id number] ####Fashion Intern: REJI HAMILTON ([phone])[facility]ITALMelissa CHRISTYANNN (SBHLAB)[address] [place] [address]#### [id number] ####Fashion Intern: MERLE RODRIGUES ([phone])[facility] ([facility])[address] [place] [address] BILIRUBIN, TOTAL PRESENCE IN URINE Negative Normal Negative [facility] Comment on above: Performed By: #### L [id number] ####Fashion Intern: REJI HAMILTON ([phone])[facility]ITALMelissa CHRISTYANNN (SBHLAB)[address] [place] [address]#### [id number] ####Fashion Intern: MERLE RODRIGUES ([id number])[facility] ([facility])[address] [place] [address] Clarity (U) Turbid Abnormal Clear [facility] Comment on above: Performed By: #### L [id number] ####Fashion Intern: REJI HAMILTON ([phone])[facility]ITALMelissa CHRISTYANNN (SBHLAB)[address] [place] [address]#### [id number] ####Fashion Intern: MERLE RODRIGUES ([phone])[facility] ([facility])[address] [place] [address] Color (U) Yellow Normal Lt. Yellow [facility] Comment on above: Performed By: #### L [id number] ####Fashion Intern: REJI HAMILTON ([phone])[facility] ([facility])[address] [place] [address]#### [id number] ####Fashion Intern: MERLE RODRIGUES ([phone])[facility] ([facility])[address] [place] [address] GLUCOSE (MG/DL) IN URINE Normal Normal Normal (<70) [facility] Comment on above: Performed By: #### L [id number] ####Fashion Intern: REJI HAMILTON ([id number])[facility] ([facility])[address] [place] [address]#### [id number] ####Fashion Intern: MERLE RODRIGUES ([id number])[facility] ([facility])[address] [place] [address] HEMOGLOBIN PRESENCE IN URINE 0.03 mg/dL Abnormal Negative [facility] Comment on above: Performed By: #### L [id number] ####Fashion Intern: REJI HAMILTON ([id number])[facility] ([facility])[address] [place] [address]#### [id number] ####Fashion Intern: MERLE RODRIGUES ([phone])[facility] ([facility])[address] [place] [address] Ketones Ql (U) Negative Normal Negative [facility] Comment on above: Performed By: #### L [id number] ####Fashion Intern: REJI HAMILTON ([phone])[facility] ([facility] [place] [address]#### [id number] ####Fashion Intern: MERLE RODRIGUES ([phone])[facility] ([facility])[address] [place] [address] LEUKOCYTE ESTERASE PRESENCE IN URINE BY TEST STRIP 500 Jimenez/uL Abnormal Negative [facility] Comment on above: Performed By: #### L [id number] ####Fashion Intern: REJI HAMILTON ([id number])[facility])[address] [place] [address]#### [id number] ####Fashion Intern: MERLE RODRIGUES ([phone])[facility] ([facility])[address] [place] [address] NITRITE PRESENCE IN URINE Negative Normal Negative [facility] Comment on above: Performed By: #### L [id number] ####Fashion Intern: REJI HAMILTON ([id number])[facility]ITAL[facility] ([facility])[address] [place] [address]#### [id number] ####Fashion Intern: MERLE RODRIGUES ([id number])[facility])[address] [place] [address] pH (U) 8.0 [pH] Normal 5.0-8.0 [facility] Comment on above: Performed By: #### L [id number] ####Fashion Intern: REJI HAMILTON ([id number])[facility] ([facility] [place] [address]#### [id number] ####Fashion Intern: MERLE RODRIGUES ([phone])[facility] [facility] ([facility])[address] [place] [address] Protein (U) [Mass/Vol] 100 mg/dL Abnormal Negative [facility] Comment on above: Performed By: #### L [id number] ####Fashion Intern: REJI HAMILTON ([phone])[facility] ([facility])[address] [place] [address]#### [id number] ####Fashion Intern: MERLE RODRIGUES ([phone])[facility] ([facility])[address] [place] [address] RBC (#/HPF) IN URINE SEDIMENT 3-5 Abnormal 0-2 [facility] Comment on above: Performed By: #### L [id number] ####Fashion Intern: REJI HAMILTON ([phone])[facility] ([facility])[address] [place] [address]#### [id number] ####Fashion Intern: MERLE RODRIGUES ([phone])[facility] ([facility])[address] [place] [address] Specific gravity (U) [Rel density] 1.015 Normal 1.005-1.030 [facility] Comment on above: Result Comment: LANA Rangel COMMENTS:This specimen has been reflexed to urine culture. Performed By: #### L [id number] ####Fashion Intern: REJI HAMILTON ([phone])[facility] ([facility])[address] [place] [address]#### [id number] ####Fashion Intern: MERLE RODRIGUES ([phone])[facility] ([facility])[address] [place] [address] SQUAMOUS EPITHELIAL CELLS (#/HPF) IN URINE SEDIMENT 3-5 Normal 3-5 [facility] Comment on above: Performed By: #### L [id number] ####Fashion Intern: REJI HAMILTON ([phone])[facility] ([facility])[address] [place] [address]#### [id number] ####Fashion Intern: MERLE RODRIGUES ([phone])[facility] ([facility])[address] [place] [address] UROBILINOGEN (MG/DL) IN URINE Normal Normal Normal (0-1) [facility] Comment on above: Performed By: #### L [id number] ####Fashion Intern: REJI HAMILTON ([phone])[facility] ([facility])[address] [place] [address]#### [id number] ####Fashion Intern: MERLE RODRIGUES ([phone])[facility] ([facility])[address] [place] [address] WBC (LEUKOCYTE) (#/HPF) IN URINE SEDIMENT 26-50 Abnormal 0-5 [facility] Comment on above: Performed By: #### L [id number] ####Fashion Intern: REJI HAMILTON ([phone])[facility] [place] ([facility])[address]#### [id number] ####Fashion Intern: MERLE RODRIGUES ([phone])[facility] ([facility])[address] [place] [address] COMPREHENSIVE METABOLIC PANE Fernando 01-29-2025 Albumin [Mass/Vol] 3.0 g/dL Low 3.1-4.5 [facility] Comment on above: Performed By: #### L [id number] ####Fashion Intern: REJI HAMILTON ([phone])[facility] ([facility])[address] ALP [Catalytic activity/Vol] 91 U/L Normal 40-150 [facility] Comment on above: Performed By: #### L [id number] ####Fashion Intern: REJI HAMILTON ([phone])[facility] [place] ([facility])[address] ALT [Catalytic activity/Vol] U/L Normal <30 [facility] Comment on above: Performed By: #### L [id number] ####Fashion Intern: REJI HAMILTON ([phone])[facility] ([facility])[address] [place] [address] Anion gap [Moles/Vol] 10 mmol/L Normal 3-13 [facility] Comment on above: Performed By: #### L [id number] ####Fashion Intern: REJI HAMILTON ([phone])[facility] ([facility])[address] AST [Catalytic activity/Vol] 19 U/L Normal <34 [facility] Comment on above: Performed By: #### L [id number] ####Fashion Intern: REJI HAMILTON ([phone])[facility] [place] ([facility])[address] Bilirubin [Mass/Vol] 0.5 mg/dL Normal <1.2 [facility] Comment on above: Performed By: #### L [id number] ####Fashion Intern: REJI HAMILTON ([phone])[facility]ITALMelissa CHRISTYALBUQUERQUE INDI[facility]AL CLINICN (SBHLAB)[address] Calcium [Mass/Vol] 8.8 mg/dL Normal 8.8-10.0 [facility] Comment on above: Performed By: #### L [id number] ####Fashion Intern: REJI HAMILTON ([phone])[facility] ([facility])[address] Chloride [Moles/Vol] 106 mmol/L Normal 98-107 [facility] Comment on above: Performed By: #### L [id number] ####Fashion Intern: REJI HAMILTON ([phone])[facility] ([facility])[address] CO2 [Moles/Vol] 31 mmol/L Normal 23-31 [facility] Comment on above: Performed By: #### L [id number] ####Fashion Intern: REJI HAMILTON ([phone])[facility] (HLAB)[address] Creatinine [Mass/Vol] 1.04 mg/dL Normal 0.58-1.12 [facility] Comment on above: Performed By: #### L [id number] ####Fashion Intern: REJI HAMILTON ([phone])[facility] ([facility])[address] [place] [address] [place] GLOMERULAR FILTRATION RATE ML/MIN/1.73 SQ M.PREDICTED 55.8 mL/min/1.73m*2 Low >60.0 [facility] Comment on above: Result Comment: Calc ulation based on the Chronic Kidney Disease Epidemiology Collaboration (CKD-EPI) equation refit without adjustment for race Performed By: #### L [id number] ####Fashion Intern: REJI [phone])[facility]ITALMelissa CHRISTYBELLA (SBHLAB)[address] Glucose [Mass/Vol] 118 mg/dL High 82-115 [facility] Comment on above: Performed By: #### L [id number] ####Fashion Intern: REJI HAMILTON ([phone])[facility]ITALMelissa CHRISTYALBUQUERQUE INDIAN DENTAL CLINICDarian (SBHLAB)[address] Potassium [Moles/Vol] 3.6 mmol/L Normal 3.5-5.1 [facility] Comment on above: Result Comment: [facility] potassium values may be up to 0.5 mmol/L lower than serum values. Performed By: #### L [id number] ####Fashion Intern: REJI HAMILTON ([phone])[facility]ITALMelissa STONEDarian (SBHLAB)[address] Protein [Mass/Vol] 6.6 g/dL Normal 6.4-8.3 [facility] Comment on above: Performed By: #### L [id number] ####Fashion Intern: REJI HAMILTON ([phone])[facility]OS[facility]ITALMelissa [facility] PHOENIXDarian (SBHLAB)[address] Sodium [Moles/Vol] 147 mmol/L High 136-145 [facility] Comment on above: Performed By: #### L [id number] ####Fashion Intern: REJI HAMILTON ([phone])[facility]ITALMelissa [facility]YCOB[facility] (SB[facility]AB)[address] Urea nitrogen [Mass/Vol] 28 mg/dL High 9-23 [facility] Comment on above: Performed By: #### L [id number] ####Fashion Intern: REJI HAMILTON ([phone])[facility] ([facility])[address] HEAD WO IV CONTRASTon CT HEAD WO IV CONTRAST Normal [facility] CT Head WO contraston 2024 No acute intracranial abnormalities or significant change from the prior study. Report Dictated on Electronically Signed By: Jeffry Cárdenas MD Electronically Signed Date/Time: 01/29/2025 11:07 AM EDT [facility] Patient Name: SALAZAR [facility]ANCHEZ : 1950 [id number] Exam Date/Time: 01/29/2025 10:26 Procedure: CT HEAD WO IV CONTRAST Ordering Provider: PORTILLO ANIS Reason For Exam: Mental status change, unknown cause CT HEAD WITHOUT CONTRAST CLINICAL HISTORY: Mental status change, unknown cause COMPARISON: None TECHNIQUE: Helical CT of the brain without contrast. Dose reduction was employed with automated exposure control. FINDINGS: Acute Findings: No hemorrhage, mass, or infarct. Chronic Changes: Scattered patchy foci of white matter hypoattenuation, most likely mild chronic microvascular ischemic changes. Small area of encephalomalacia in the left parietal lobe is unchanged. Ventricles and sulci: Moderate generalized brain parenchymal volume loss with proportionate ventricular enlargement. Other: The skull, included paranasal sinuses and orbits are normal. [facility] Jeffry Cárdenas M D - 01/29/2025 Patient Name: SALAZAR COYLE : 1950 [id number] Exam Date/Time: 01/29/2025 10:26 Procedure: CT HEAD WO IV CONTRAST Ordering Provider: PORTILLO ANIS Reason For Exam: Mental status change, unknown cause CT HEAD WITHOUT CONTRAST CLINICAL HISTORY: Mental status change, unknown cause COMPARISON: None TECHNIQUE: Helical CT of the brain without contrast. Dose reduction was employed with automated exposure control. FINDINGS: Acute Findings: No hemorrhage, mass, or infarct. Chronic Changes: Scattered patchy foci of white matter hypoattenuation, most likely mild chronic microvascular ischemic changes. Small area of encephalomalacia in the left parietal lobe is unchanged. Ventricles and sulci: Moderate generalized brain parenchymal volume loss with proportionate ventricular enlargement. Other: The skull, included paranasal sinuses and orbits are normal. IMPRESSION: No acute intracranial abnormalities or significant change from the prior study. Report Dictated on Electronically Signed By: Jeffry Cárdenas MD Electronically Signed Date/Time: 01/29/2025 11:07 AM EDT [facility] Radiology Study observation (narrative) [facility] CT Head WO contrastOrdered B y: Jeffry Cárdenas on 01-29-2025 [facility] [employer] Work Phone: Comprehensive metabolic 1998 panelon 01-29-2025 Albumin [Mass/Vol] 3 g/dL Low 3.1 - 4.5 g/dL [facility] ALP [Catalytic activity/Vol] 91 U/L 40 - 150 U/L [facility] ALT [Catalytic activity/Vol] U/L NINF - 30 U/L [facility] Anion gap [Moles/Vol] 10 mmol/L 3 - 13 mmol/L [facility] AST [Catalytic activity/Vol] 19 U/L NINF - 34 U/L [facility] Bilirubin [Mass/Vol] 0.5 mg/dL NINF - 1.2 mg/dL [facility] Calcium [Mass/Vol] 8.8 mg/dL 8.8 - 10. 0 mg/dL [facility] Chloride [Moles/Vol] 106 mmol/L 98 - 10 7 mmol/L [facility] CO2 [Moles/Vol] 31 mmol/L 23 - 31 mmol/L [facility] Creatinine [Mass/Vol] 1.04 mg/dL 0.58 - 1.12 mg/dL [facility] GFR/1.73 sq M.predicted (S/P/Bld) [Vol rate/Area] 55.8 mL/min Low - PINF [facility] Comment on above: Calculation based on the Chronic Kidney Disease Epidemiology Collaboration (CKD-EPI) equation refit without adjustment for race Glucose [Mass/Vol] 118 mg/dL High 82 - 115 mg/dL [facility] Interpretation and review of laboratory results Abnormal [facility] Potassium [Moles/Vol] 3.6 mmol/L 3.5 - 5.1 mmol/L [facility] Comment on above: Plasma potassium pietro ues may be up to 0.5 mmol/L lower than serum values. Protein [Mass/Vol] 6.6 g/dL 6.4 - 8.3 g/dL [facility] Sodium [Moles/Vol] 147 mmol/L High 136 - 145 mmol/L [facility] Urea nitrogen [Mass/Vol] 28 mg/dL High 9 - 23 mg/dL [facility] ECG 12-LEADon 01-29-2025 ECG 12-LEAD IMPRESSION: Atrial fibrillation Left bundle branch block Electronically Signed On 01-29-2025 11:39:18 EDT by Mario Portillo Normal [facility] ED Nursing Noteon 01-29-2025 ED Nursing Note MH TEACHER called to attemp t IV access Normal [facility] ED Provider Noteon ED Provider Note Normal [facility] HEMOGLOBIN A1Con 01-29-2025 Glucose [Mass/Vol] 171 mg/dL Normal [facility] Comment on above: Result Comment: ORDE R COMMENTS:If not done within the last 3 [id number] values of 5.7-6.4 percent indicate an increased risk for developing diabetes mellitus. HbA1c values greater than or equal to 6.5 percent are diagnostic of diabetes mellitus. For diagnosis of diabetes in individuals without unequivocal hyperglycemia, results should be confirmed by repeat testing. Performed By: #### L [id number] ####Fashion Intern: REJI HAMILTON ([phone])[facility] ([facility])[address] [place] [address] HEMOGLOBIN A1C 7.6 %HbA1C High <5.7 [facility] Comment on above: Result Comment: Norm al less than 5.7%Prediabetes 5.7% to 6.4%Diabetes 6.5% or higher--HgbA1C levels may not be accurate in patients who have renal disease, received recent blood transfusions, are anemic, or who have dyshemoglobinemia. Performed By: #### L [id number] ####Fashion Intern: REJI HAMILTON ([phone])[facility] ([facility])[address] [place] [address] LACTIC ACID WITH REFLEXon Lactate [Moles/Vol] 1.3 mmol/L Normal 0.5-2.2 [facility] Comment on above: Performed By: #### L [id number] ####Fashion Intern: REJI HAMILTON ([phone])[facility] ([facility])[address] [place] [address] Laboratory - Chemistry and C hemistry - challengeon 01-29-2025 Glucose [Mass/Vol] 221 mg/dL High 70 - 100 mg/dL [facility] Glucose [Mass/Vol] 221 mg/dL High 70 - 100 mg/dL [facility] Glucose [Mass/Vol] 139 mg/dL High 70 - 100 mg/dL [facility] Average glucose Estimated from glycated hemoglobin (Bld) [Mass/Vol] 171 mg/dL [facility] Lactate [Moles/Vol] 1.3 mmol/L 0.5 - 2. 2 mmol/L [facility] Laboratory - Hematology and Cell countson 01-29-2025 HbA1c (Bld) [Mass fraction] 7.6 % High [facility] Comment on above: Normal less than 5.7 % Prediabetes 5.7% to 6.4% Diabetes 6.5% or higher --HgbA1C levels may not be accurate in patients who have renal disease, received recent blood transfusions, are anemic, or who have dyshemoglobinemia. No Panel Informationon 01-29 Interpretation and review of laboratory results Abnormal [facility] Performed by: [facility] [address] [place] [id number] CLIA ID: [id number] [facility] Interpretation and review of laboratory results Abnormal [facility] Performed by: [facility] [address] [place] [id number] CLIA ID: [id number] [facility] Interpretation and review of laboratory results Abnormal [facility] Performed by: [facility] [address] [place] [id number] CLIA ID: [id number] [facility] Interpretation and review of laboratory results Abnormal [facility] HbA1c values of 5.7- 6.4 percent indicate an increased risk for developing diabetes mellitus. HbA1c values greater than or equal to 6.5 percent are diagnostic of diabetes mellitus. For diagnosis of diabetes in individuals without unequivocal hyperglycemia, results should be confirmed by repeat testing. [facility] Interpretation and review of laboratory results Normal [facility] P [place] 0 degrees [facility] [employer] [place] Interval 0 ms [facility] [employer] QRS [place] -2 degrees [facility] [employer] QRSD Interval 128 ms [facility] [employer] QT Interval 409 ms [facility] QTC Interval 466 ms [facility] T Wave [place] 138 degrees [facility] Atrial fibrillation Left bundle branch block Electronically Signed On 01-29-2025 11:39:18 EDT by Mario Portillo CV Mario Albarran MD - 01/29/2025 IMPRESSION: Atrial fibrillation Left bundle branch block Electronically Signed On 01-29-2025 11:39:18 EDT by Mario Portillo [facility] Nursing Noteon 01-29-2025 Nursing Note Normal [facility] URINE CULTUREon 01-29-2025 Bacteria identified Cx Nom (U) Normal [facility] Comment on above: Performed By: #### L [id number] ####Fashion Intern: REJI HAMILTON ([phone])[facility] ([facility])[address] [place] [address]#### [id number] ####Fashion Intern: MERLE RODRIGUES ([phone])[facility] ([facility])[address] [place] [address] Urinalysis complete panel (U )Ordered By: Genny Leon on 01-29-2025 Bacteria LM.HPF (Urine sed) [#/Area] Few Abnormal Negative /HPF [facility] Bilirubin Ql (U) Negative Negative mg/dL [facility] Clarity (U) Turbid Abnormal Clear [facility] Color (U) Yellow Lt. Yellow [facility] Epithelial cells.squamous LM.HPF (Urine sed) [#/Area] 3-5 [facility] Glucose Ql (U) Normal Normal (<70) mg/dL [facility] Hemoglobin Ql (U) 0.03 mg/dL Abnormal Negative [facility] Interpretation and review of laboratory results Abnormal [facility] Ketones (U) [Mass/Vol] Negative Negat iris mg/dL [facility] Leukocyte esterase Test strip Ql (U) 500 Abnormal Negative Jimenez/uL [facility] Nitrite Ql (U) Negative Negative [facility] pH (U) 8.0 [pH] 5.0 - 8.0 pH [facility] Protein (U) [Mass/Vol] 100 mg/dL Abnormal Negative [facility] RBC LM.HPF (Urine sed) [#/Area] 3-5 Abnormal [facility] Specific gravity (U) [Rel density] 1.015 1.005 - 1.030 [facility] Urobilinogen (U) [Mass/Vol] Normal Normal (0-1) mg/dL [facility] WBC LM.HPF (Urine sed) [#/Area] 26-50 Abnormal [facility] This specimen has be en reflexed to urine culture. [facility] Vital signson 01-29-2025 Heart rate 78 /min bpm [facility] XR Chest Single viewon 01-29 Stable cardiomegaly. No evidence of acute cardiopulmonary disease. Report Dictated on Electronically Signed By: Jeffry Cárdenas MD Electronically Signed Date/Time: 01/29/2025 11:09 AM EDT [facility] Patient Name: SALAZAR SANCHEZ : 1950 Exam Date/Time: 01/29/2025 10:50 Procedure: XR CHEST 1 VIEW Ordering Provider: PORTILLO ANIS Reason For Exam: altered mental status AP CHEST X-RAY CLINICAL INDICATION: altered mental status TECHNIQUE: AP portable x-ray of the chest. COMPARISON: 10/09/2024 FINDINGS: Limitations: The study is limited due to patient rotation. Heart/Mediastinum: Stable cardiomegaly. The right central venous catheter was removed. Lungs: Left retrocardiac streaky opacities are unchanged and most likely vascular shadows or atelectasis. No focal lung consolidation or pleural effusion. Bones: Degenerative changes are seen in the thoracic spine and shoulders. No acute osseous findings. [facility] Jeffry Cárdenas M D - 01/29/2025 Patient Name: SALAZAR COYLE : 1950 Exam Date/Time: 01/29/2025 10:50 Procedure: XR CHEST 1 VIEW Ordering Provider: PORTILLO ANIS Reason For Exam: altered mental status AP CHEST X-RAY CLINICAL INDICATION: altered mental status TECHNIQUE: AP portable x-ray of the chest. COMPARISON: 10/09/2024 FINDINGS: Limitations: The study is limited due to patient rotation. Heart/Mediastinum: Stable cardiomegaly. The right central venous catheter was removed. Lungs: Left retrocardiac streaky opacities are unchanged and most likely vascular shadows or atelectasis. No focal lung consolidation or pleural effusion. Bones: Degenerative changes are seen in the thoracic spine and shoulders. No acute osseous findings. IMPRESSION: Stable cardiomegaly. No evidence of acute cardiopulmonary disease. Report Dictated on Electronically Signed By: Jeffry Cárdenas MD Electronically Signed Date/Time: 01/29/2025 11:09 AM EDT [facility] Radiology Study observation (narrative) [facility] 30on 10-18-2024 30 Normal [facility] [id number] 10-18-2024 [id number] Normal [facility] [id number] Normal [facility] [id number] Normal [facility] CBC W Auto Differential pane l (Bld)on 10-18-2024 Basophils (Bld) [#/Vol] 0 10*3/uL 0.0 - 0.2 10*3/uL [facility] Basophils/100 WBC (Bld) 0.2 % 0.0 - 2.0 % [facility] Eosinophils (Bld) [#/Vol] 0.2 10*3/uL 0.0 - 0.5 10*3/uL [facility] Eosinophils/100 WBC (Bld) 4.3 % 0.0 - 6.0 % [facility] Erythrocyte distribution width (RBC) [Ratio] 14.6 % 11.5 - 15.0 % [facility] Hematocrit (Bld) [Volume fraction] 33.1 % Low 35.0 - 47.0 % [facility] Hemoglobin (Bld) [Mass/Vol] 10.3 g/dL Low 11.7 - 16.0 g/dL [facility] Immature granulocytes (Bld) [#/Vol] 0 10*3/uL NINF - 0.1 10*3/uL [facility] Immature granulocytes/100 WBC (Bld) 0.4 % 0.0 - 2.0 % [facility] Interpretation and review of laboratory results Abnormal [facility] Lymphocytes (Bld) [#/Vol] 2.3 10*3/uL 1.0 - 4.3 10*3/uL [facility] Lymphocytes/100 WBC (Bld) 43.5 % 15.0 - 45.0 % [facility] MCH (RBC) [Entitic mass] 30.9 pg 26.0 - 34.0 pg [facility] MCHC (RBC) [Mass/Vol] 31.1 % 30.5 - 36.0 % [facility] MCV (RBC) [Entitic vol] 99.4 fL High 77.0 - 99.0 fL [facility] Monocytes (Bld) [#/Vol] 0.4 10*3/uL 0.0 - 0.9 10*3/uL [facility] Monocytes/100 WBC (Bld) 7.9 % 5.0 - 13.0 % [facility] Neutrophils (Bld) [#/Vol] 2.3 10*3/uL 1.8 - 7.5 10*3/uL [facility] Neutrophils/100 WBC (Bld) 43.7 % 38.0 - 82.0 % [facility] Nucleated RBC/100 WBC (Bld) [Ratio] 0 % [facility] Platelet mean volume (Bld) [Entitic vol] 10.8 fL 9.0 - 12.7 fL [facility] Platelets (Bld) [#/Vol] 198 10*3/uL 140 - 440 10*3/uL [facility] RBC (Bld) [#/Vol] 3.33 10*6/uL Low 3.80 - 5.2 0 10*6/uL [facility] WBC (Bld) [#/Vol] 5.3 10*3/uL 3.6 - 10.7 10*3/uL [facility] CBC WITH AUTO DIFFERENTIALon 10-18-2024 Basophils (Bld) [#/Vol] 0.0 10*3/uL Normal 0.0-0.2 [facility] Comment on above: Performed By: #### L [id number] ####Fashion Intern: REJI HAMILTON ([phone])[facility] ([facility])[address] [place] [address] Basophils/100 WBC (Bld) 0.2 % Normal 0.0-2.0 [facility] Comment on above: Performed By: #### L [id number] ####Fashion Intern: REJI HAMILTON ([phone])[facility] (SBHLAB)[address] Eosinophils (Bld) [#/Vol] 0.2 10*3/uL Normal 0.0-0.5 [facility] Comment on above: Performed By: #### L [id number] ####Fashion Intern: REJI BAUTISTACAIN ([phone])[facility] (SBAB)[address] Eosinophils/100 WBC (Bld) 4.3 % Normal 0.0-6.0 [facility] Comment on above: Performed By: #### L [id number] ####Fashion Intern: REJI HAMILTON ([id number])[facility] ([facility])[address] Erythrocyte distribution width (RBC) [Ratio] 14.6 % Normal 11.5-15.0 [facility] Comment on above: Performed By: #### L [id number] ####Fashion Intern: REJI BAUTISTACAIN ([phone])[facility] ([facility])[address] [place] [address] Hematocrit (Bld) [Volume fraction] 33.1 % Low 35.0-47.0 [facility] Comment on above: Performed By: #### L [id number] ####Fashion Intern: REJI HAMILTON ([phone])[facility] ([facility] [place] [address] Hemoglobin (Bld) [Mass/Vol] 10.3 g/dL Low 11.7-16.0 [facility] Comment on above: Performed By: #### L [id number] ####Fashion Intern: REJI HAMILTON ([phone])[facility] ([facility] IMMATURE GRANS % 0.4 % Normal 0.0-2.0 [facility] Comment on above: Performed By: #### L [id number] ####Fashion Intern: REJI HAMILTON ([phone])[facility] [place] ([facility])[address] IMMATURE GRANS ABSOLUTE 0.0 10*3/uL Normal <0.1 [facility] Comment on above: Performed By: #### L [id number] ####Fashion Intern: REJI HAMILTON ([phone])[facility] [place] ([facility])[address] Lymphocytes (Bld) [#/Vol] 2.3 10*3/uL Normal 1.0-4.3 [facility] Comment on above: Performed By: #### L [id number] ####Fashion Intern: REJI HAMILTON ([phone])[facility] [place] ([facility])[address] Lymphocytes/100 WBC (Bld) 43.5 % Normal 15.0-45.0 [facility] Comment on above: Performed By: #### L [id number] ####Fashion Intern: REJI HAMILTON ([phone])[facility] [place] ([facility])[address] MCH (RBC) [Entitic mass] 30.9 pg Normal 26.0-34.0 [facility] Comment on above: Performed By: #### L [id number] ####Fashion Intern: REJI HAMILTON ([id number])[facility] [place] ([facility])[address] MCHC 31.1 % Normal 30.5-36.0 [facility] Comment on above: Performed By: #### L [id number] ####Fashion Intern: REJI HAMILTON ([id number])[facility] [place] ([facility])[address] MCV (RBC) [Entitic vol] 99.4 fL High 77.0-99.0 [facility] Comment on above: Performed By: #### L [id number] ####Fashion Intern: REJI HAMILTON ([phone])[facility] [place] ([facility])[address] Monocytes (Bld) [#/Vol] 0.4 10*3/uL Normal 0.0-0.9 [facility] Comment on above: Performed By: #### L [id number] ####Fashion Intern: REJI HAMILTON ([phone])[facility] [place] ([facility])[address] Monocytes/100 WBC (Bld) 7.9 % Normal 5.0-13.0 [facility] Comment on above: Performed By: #### L [id number] ####Fashion Intern: REJI HAMILTON ([phone])[facility] [place] ([facility])[address] NEUTROPHILS ABSOLUTE 2.3 10*3/uL Normal 1.8-7.5 [facility] Comment on above: Performed By: #### L [id number] ####Fashion Intern: REJI HAMILTON ([phone])[facility] [place] ([facility])[address] Neutrophils/100 WBC (Bld) 43.7 % Normal 38.0-82.0 [facility] Comment on above: Performed By: #### L [id number] ####Fashion Intern: REJI HAMILTON ([phone])[facility] [place] ([facility])[address] NRBC 0.0 /100 WBCs Normal 0.0-2.0 [facility] Comment on above: Performed By: #### L [id number] ####Fashion Intern: REJI HAMILTON ([phone])[facility] [place] ([facility])[address] Platelet mean volume (Bld) [Entitic vol] 10.8 fL Normal 9.0-12.7 [facility] Comment on above: Performed By: #### L [id number] ####Fashion Intern: REJI HAMILTON ([phone])[facility] [place] ([facility])[address] Platelets (Bld) [#/Vol] 198 10*3/uL Normal 140-440 [facility] Comment on above: Performed By: #### L [id number] ####Fashion Intern: REJI HAMILTON ([phone])[facility] ([facility])[address] RBC (Bld) [#/Vol] 3.33 10*6/uL Low 3.80-5.20 [facility] Comment on above: Performed By: #### L [id number] ####Fashion Intern: REJI HAMILTON ([phone])[facility] [place] ([facility])[address] WBC (Bld) [#/Vol] 5.3 10*3/uL Normal 3.6-10.7 [facility] Comment on above: Performed By: #### L [id number] ####Fashion Intern: REJI HAMILTON ([phone])[facility] [place] ([facility])[address] COMPREHENSIVE METABOLIC PANE Fernando 10-18-2024 Albumin [Mass/Vol] 2.1 g/dL Low 3.4-4.8 [facility] Comment on above: Performed By: #### L AB17, [id number] ####Fashion Intern: REJI HAMILTON ([phone])[facility] [place] ([facility])[address] ALP [Catalytic activity/Vol] 56 U/L Normal 40-150 [facility] Comment on above: Performed By: #### L AB17, [id number] ####Fashion Intern: REJI HAMILTON ([id number])[facility] [place] ([facility])[address] ALT [Catalytic activity/Vol] 9 U/L Normal <30 [facility] Comment on above: Performed By: #### L AB17, [id number] ####Fashion Intern: REJI HAMILTON ([id number])[facility] [place] ([facility])[address] Anion gap [Moles/Vol] 7 mmol/L Normal 3-13 [facility] Comment on above: Performed By: #### L AB17, [id number] ####Fashion Intern: REJI HAMILTON ([phone])[facility] [place] ([facility])[address] AST [Catalytic activity/Vol] 20 U/L Normal <34 [facility] Comment on above: Performed By: #### L AB17, [id number] ####Fashion Intern: REJI HAMILTON ([phone])[facility] [place] ([facility])[address] Bilirubin [Mass/Vol] 0.2 mg/dL Normal <1.2 [facility] Comment on above: Performed By: #### L AB17, [id number] ####Fashion Intern: REJI HAMILTON ([phone])[facility] [place] ([facility])[address] Calcium [Mass/Vol] 8.0 mg/dL Low 8.8-10.0 [facility] Comment on above: Performed By: #### L AB17, [id number] ####Fashion Intern: REJI HAMILTON ([phone])[facility] [place] ([facility])[address] [place] [address] [place] Chloride [Moles/Vol] 110 mmol/L High 98-107 [facility] Comment on above: Performed By: #### L AB17, [id number] ####Fashion Intern: REJI HAMILTON ([phone])[facility] [place] ([facility])[address] [place] [address] [place] CO2 [Moles/Vol] 27 mmol/L Normal 23-31 [facility] Comment on above: Performed By: #### L AB17, [id number] ####Fashion Intern: REJI HAMILTON ([phone])[facility] [place] ([facility])[address] Creatinine [Mass/Vol] 0.77 mg/dL Normal 0.57-1.11 [facility] Comment on above: Performed By: #### L AB17, [id number] ####Fashion Intern: REJI HAMILTON ([phone])[facility] ([facility])[address] [place] [address] [place] GLOMERULAR FILTRATION RATE ML/MIN/1.73 SQ M.PREDICTED 80.1 mL/min/1.73m*2 Normal >60.0 [facility] Comment on above: Result Comment: Calc ulation based on the Chronic Kidney Disease Epidemiology Collaboration (CKD-EPI) equation refit without adjustment for race Performed By: #### L AB17, [id number] ####Fashion Intern: REJI HAMILTON ([id number])[facility] ([facility])[address] Glucose [Mass/Vol] 178 mg/dL High 82-115 [facility] Comment on above: Performed By: #### L AB17, [id number] ####Fashion Intern: REJI HAMILTON ([phone])[facility] ([facility])[address] Potassium [Moles/Vol] 4.2 mmol/L Normal 3.5-5.1 [facility] Comment on above: Result Comment: [facility] potassium values may be up to 0.5 mmol/L lower than serum values. Performed By: #### L AB17, [id number] ####Fashion Intern: REJI HAMILTON ([phone])[facility] [place] ([facility])[address] Protein [Mass/Vol] 5.2 g/dL Low 6.4-8.3 [facility] Comment on above: Performed By: #### L AB17, [id number] ####Fashion Intern: REJI HAMILTON ([phone])[facility] ([facility])[address] [place] [address] [place] Sodium [Moles/Vol] 144 mmol/L Normal 136-145 [facility] Comment on above: Performed By: #### L AB17, [id number] ####Fashion Intern: REJI CARBALLOCER ([phone])[facility] ([facility])[address] Urea nitrogen [Mass/Vol] 29 mg/dL High 9-23 [facility] Comment on above: Performed By: #### L AB17, [id number] ####Fashion Intern: REJI HAMILTON ([phone])[facility] ([facility])[address] Comprehensive metabolic 1998 panelon 10-18-2024 Albumin [Mass/Vol] 2.1 g/dL Low 3.4 - 4.8 g/dL [facility] ALP [Catalytic activity/Vol] 56 U/L 40 - 150 U/L [facility] ALT [Catalytic activity/Vol] 9 U/L NINF - 30 U/L [facility] Anion gap [Moles/Vol] 7 mmol/L 3 - 13 mmol/L [facility] AST [Catalytic activity/Vol] 20 U/L NINF - 34 U/L [facility] Bilirubin [Mass/Vol] 0.2 mg/dL NINF - 1.2 mg/dL [facility] Calcium [Mass/Vol] 8 mg/dL Low 8.8 - 10. 0 mg/dL [facility] Chloride [Moles/Vol] 110 mmol/L High 98 - 10 7 mmol/L [facility] CO2 [Moles/Vol] 27 mmol/L 23 - 31 mmol/L [facility] Creatinine [Mass/Vol] 0.77 mg/dL 0.57 - 1.11 mg/dL [facility] GFR/1.73 sq M.predicted (S/P/Bld) [Vol rate/Area] 80.1 mL/min - PINF [facility] Glucose [Mass/Vol] 178 mg/dL High 82 - 115 mg/dL [facility] Interpretation and review of laboratory results Abnormal [facility] Potassium [Moles/Vol] 4.2 mmol/L 3.5 - 5.1 mmol/L [facility] Protein [Mass/Vol] 5.2 g/dL Low 6.4 - 8.3 g/dL [facility] Sodium [Moles/Vol] 144 mmol/L 136 - 145 mmol/L [facility] Urea nitrogen [Mass/Vol] 29 mg/dL High 9 - 23 mg/dL [facility] Laboratory - Chemistry and C hemistry - challengeon 10-18-2024 Glucose [Mass/Vol] 163 mg/dL High 70 - 100 mg/dL [facility] Magnesium [Mass/Vol] 2 mg/dL 1.6 - 2 .6 mg/dL [facility] MAGNESIUMon 10-18-2024 Magnesium [Mass/Vol] 2.0 mg/dL Normal 1.6-2.6 [facility] Comment on above: Result Comment: LANA Rangel COMMENTS:Higher values can be expected in females during menses. Performed By: #### L AB17, [id number] ####Fashion Intern: REJI HAMILTON ([phone])[facility] [place] [address] Magnesium [Mass/Vol]on 10-18 Interpretation and review of laboratory results Normal [facility] No Panel Informationon 10-18 Interpretation and review of laboratory results Abnormal [facility] 30on 10-17-2024 30 Normal [facility] 30 Normal [facility] [id number] 10-17-2024 [id number] Normal [facility] [id number] Normal [facility] [id number] Normal [facility] CBC W Auto Differential pane l (Bld)on 10-17-2024 Basophils (Bld) [#/Vol] 0 10*3/uL 0.0 - 0.2 10*3/uL [facility] Basophils/100 WBC (Bld) 0.5 % 0.0 - 2.0 % [facility] Eosinophils (Bld) [#/Vol] 0.3 10*3/uL 0.0 - 0.5 10*3/uL [facility] Eosinophils/100 WBC (Bld) 4.4 % 0.0 - 6.0 % [facility] Erythrocyte distribution width (RBC) [Ratio] 14.6 % 11.5 - 15.0 % [facility] Hematocrit (Bld) [Volume fraction] 33.8 % Low 35.0 - 47.0 % [facility] Hemoglobin (Bld) [Mass/Vol] 10.7 g/dL Low 11.7 - 16.0 g/dL [facility] Immature granulocytes (Bld) [#/Vol] 0 10*3/uL NINF - 0.1 10*3/uL [facility] Immature granulocytes/100 WBC (Bld) 0.4 % 0.0 - 2.0 % [facility] Interpretation and review of laboratory results Abnormal [facility] Lymphocytes (Bld) [#/Vol] 2.6 10*3/uL 1.0 - 4.3 10*3/uL [facility] Lymphocytes/100 WBC (Bld) 44.9 % 15.0 - 45.0 % [facility] MCH (RBC) [Entitic mass] 31.1 pg 26.0 - 34.0 pg [facility] MCHC (RBC) [Mass/Vol] 31.7 % 30.5 - 36.0 % [facility] MCV (RBC) [Entitic vol] 98.3 fL 77.0 - 99.0 fL [facility] Monocytes (Bld) [#/Vol] 0.4 10*3/uL 0.0 - 0.9 10*3/uL [facility] Monocytes/100 WBC (Bld) 7.4 % 5.0 - 13.0 % [facility] Neutrophils (Bld) [#/Vol] 2.4 10*3/uL 1.8 - 7.5 10*3/uL [facility] Neutrophils/100 WBC (Bld) 42.4 % 38.0 - 82.0 % [facility] Nucleated RBC/100 WBC (Bld) [Ratio] 0 % [facility] Platelet mean volume (Bld) [Entitic vol] 11 fL 9.0 - 12.7 fL [facility] Platelets (Bld) [#/Vol] 210 10*3/uL 140 - 440 10*3/uL [facility] RBC (Bld) [#/Vol] 3.44 10*6/uL Low 3.80 - 5.2 0 10*6/uL [facility] WBC (Bld) [#/Vol] 5.7 10*3/uL 3.6 - 10.7 10*3/uL [facility] CBC WITH AUTO DIFFERENTIALon 10-17-2024 Basophils (Bld) [#/Vol] 0.0 10*3/uL Normal 0.0-0.2 [facility] Comment on above: Performed By: #### L [id number] ####Fashion Intern: REJI BAUTISTACAIN ([phone])[facility] [place] ([facility])[address] Basophils/100 WBC (Bld) 0.5 % Normal 0.0-2.0 [facility] Comment on above: Performed By: #### L [id number] ####Fashion Intern: REJI BAUTISTACAIN ([phone])[facility] [place] ([facility])[address] Eosinophils (Bld) [#/Vol] 0.3 10*3/uL Normal 0.0-0.5 [facility] Comment on above: Performed By: #### L [id number] ####Fashion Intern: REJI HILLEDIN ([id number])[facility] [place] ([facility])[address] Eosinophils/100 WBC (Bld) 4.4 % Normal 0.0-6.0 [facility] Comment on above: Performed By: #### L [id number] ####Fashion Intern: REJI BAUTISTACAIN ([id number])[facility] [place] ([facility] [place] [address] Erythrocyte distribution width (RBC) [Ratio] 14.6 % Normal 11.5-15.0 [facility] Comment on above: Performed By: #### L [id number] ####Fashion Intern: REJI BAUTISTACAIN ([phone])[facility] [place] ([facility])[address] [place] [address] Hematocrit (Bld) [Volume fraction] 33.8 % Low 35.0-47.0 [facility] Comment on above: Performed By: #### L [id number] ####Fashion Intern: REJI BAUTISTACAIN ([id number])[facility] [place] ([facility])[address] [place] [address] Hemoglobin (Bld) [Mass/Vol] 10.7 g/dL Low 11.7-16.0 [facility] Comment on above: Performed By: #### L [id number] ####Fashion Intern: REJI HAMILTON ([phone])[facility] [place] ([facility])[address] IMMATURE GRANS % 0.4 % Normal 0.0-2.0 [facility] Comment on above: Performed By: #### L [id number] ####Fashion Intern: REJI HAMILTON ([id number])[facility] [place] ([facility])[address] IMMATURE GRANS ABSOLUTE 0.0 10*3/uL Normal <0.1 [facility] Comment on above: Performed By: #### L [id number] ####Fashion Intern: REJI HAMILTON ([phone])[facility])[address] Lymphocytes (Bld) [#/Vol] 2.6 10*3/uL Normal 1.0-4.3 [facility] Comment on above: Performed By: #### L [id number] ####Fashion Intern: REJI HAMILTON ([phone])[facility] ([facility])[address] [place] [address] Lymphocytes/100 WBC (Bld) 44.9 % Normal 15.0-45.0 [facility] Comment on above: Performed By: #### L [id number] ####Fashion Intern: REJI HAMILTON ([id number])[facility] [place] ([facility])[address] MCH (RBC) [Entitic mass] 31.1 pg Normal 26.0-34.0 [facility] Comment on above: Performed By: #### L [id number] ####Fashion Intern: REJI HAMILTON ([phone])[facility] ([facility])[address] MCHC 31.7 % Normal 30.5-36.0 [facility] Comment on above: Performed By: #### L [id number] ####Fashion Intern: REJI HAMILTON ([id number])[facility] [place] ([facility])[address] MCV (RBC) [Entitic vol] 98.3 fL Normal 77.0-99.0 [facility] Comment on above: Performed By: #### L [id number] ####Fashion Intern: REJI HAMILTON ([phone])[facility] [place] ([facility])[address] Monocytes (Bld) [#/Vol] 0.4 10*3/uL Normal 0.0-0.9 [facility] Comment on above: Performed By: #### L [id number] ####Fashion Intern: REJI HAMILTON ([id number])[facility] [place] ([facility])[address] Monocytes/100 WBC (Bld) 7.4 % Normal 5.0-13.0 [facility] Comment on above: Performed By: #### L [id number] ####Fashion Intern: REJI HAMILTON ([phone])[facility] [place] ([facility])[address] NEUTROPHILS ABSOLUTE 2.4 10*3/uL Normal 1.8-7.5 [facility] Comment on above: Performed By: #### L [id number] ####Fashion Intern: REJI HAMILTON ([phone])[facility] [place] ([facility])[address] Neutrophils/100 WBC (Bld) 42.4 % Normal 38.0-82.0 [facility] Comment on above: Performed By: #### L [id number] ####Fashion Intern: REJI HAMILTON ([phone])[facility] [place] ([facility])[address] NRBC 0.0 /100 WBCs Normal 0.0-2.0 [facility] Comment on above: Performed By: #### L [id number] ####Fashion Intern: REJI HAMILTON ([id number])[facility] [place] ([facility])[address] Platelet mean volume (Bld) [Entitic vol] 11.0 fL Normal 9.0-12.7 [facility] Comment on above: Performed By: #### L [id number] ####Fashion Intern: REJI HAMILTON ([phone])[facility] [place] ([facility])[address] Platelets (Bld) [#/Vol] 210 10*3/uL Normal 140-440 [facility] Comment on above: Performed By: #### L [id number] ####Fashion Intern: REJI HAMILTON ([id number])[facility] [place] ([facility])[address] RBC (Bld) [#/Vol] 3.44 10*6/uL Low 3.80-5.20 [facility] Comment on above: Performed By: #### L [id number] ####Fashion Intern: REJI HAMILTON ([phone])[facility] [place] ([facility])[address] WBC (Bld) [#/Vol] 5.7 10*3/uL Normal 3.6-10.7 [facility] Comment on above: Performed By: #### L [id number] ####Fashion Intern: REJI HAMILTON ([phone])[facility] [place] ([facility])[address] COMPREHENSIVE METABOLIC PANE Fernando 10-17-2024 Albumin [Mass/Vol] 2.2 g/dL Low 3.4-4.8 [facility] Comment on above: Performed By: #### L AB103, LAB17 ####Fashion Intern: REJI HAMILTON ([id number])[facility] [place] ([facility])[address] [place] [address] [place] ALP [Catalytic activity/Vol] 56 U/L Normal 40-150 [facility] Comment on above: Performed By: #### L AB103, LAB17 ####Fashion Intern: REJI HAMILTON ([phone])[facility] [place] ([facility])[address] ALT [Catalytic activity/Vol] U/L Normal <30 [facility] Comment on above: Performed By: #### L AB103, LAB17 ####Fashion Intern: REJI HAMILTON ([phone])[facility] [place] ([facility])[address] Anion gap [Moles/Vol] 8 mmol/L Normal 3-13 [facility] Comment on above: Performed By: #### L AB103, LAB17 ####Fashion Intern: REJI HAMILTON ([phone])[facility] ([facility])[address] AST [Catalytic activity/Vol] 17 U/L Normal <34 [facility] Comment on above: Performed By: #### L AB103, LAB17 ####Fashion Intern: REJI HAMILTON ([phone])[facility] [place] ([facility])[address] Bilirubin [Mass/Vol] 0.3 mg/dL Normal <1.2 [facility] Comment on above: Performed By: #### L AB103, LAB17 ####Fashion Intern: REJI HAMILTON ([id number])[facility] ([facility])[address] Calcium [Mass/Vol] 8.2 mg/dL Low 8.8-10.0 [facility] Comment on above: Performed By: #### L AB103, LAB17 ####Fashion Intern: REIJ HAMILTON ([phone])[facility] ([facility])[address] [place] [address] [place] Chloride [Moles/Vol] 108 mmol/L High 98-107 [facility] Comment on above: Performed By: #### L AB103, LAB17 ####Fashion Intern: REJI HAMILTON ([phone])[facility] (SBHLAB)[address] CO2 [Moles/Vol] 27 mmol/L Normal 23-31 [facility] Comment on above: Performed By: #### L AB103, LAB17 ####Fashion Intern: REJI HAMILTON ([id number])[facility] ([facility])[address] Creatinine [Mass/Vol] 0.76 mg/dL Normal 0.57-1.11 [facility] Comment on above: Performed By: #### L AB103, LAB17 ####Fashion Intern: REJI HAMILTON ([id number])[facility] ([facility] [place] [address] [place] GLOMERULAR FILTRATION RATE ML/MIN/1.73 SQ M.PREDICTED 81.3 mL/min/1.73m*2 Normal >60.0 [facility] Comment on above: Result Comment: Calc ulation based on the Chronic Kidney Disease Epidemiology Collaboration (CKD-EPI) equation refit without adjustment for race Performed By: #### L AB103, LAB17 ####Fashion Intern: REJI HAMILTON ([id number])[facility] (HLAB)[address] [place] [address] [place] Glucose [Mass/Vol] 156 mg/dL High 82-115 [facility] Comment on above: Performed By: #### L AB103, LAB17 ####Fashion Intern: REJI HAMILTON ([id number])[facility] ([facility])[address] [place] [address] [place] Potassium [Moles/Vol] 3.8 mmol/L Normal 3.5-5.1 [facility] Comment on above: Result Comment: [facility] potassium values may be up to 0.5 mmol/L lower than serum values. Performed By: #### L AB103, LAB17 ####Fashion Intern: REJI HAMILTON ([phone])[facility] [place] (SBHLAB)[address] Protein [Mass/Vol] 5.4 g/dL Low 6.4-8.3 [facility] Comment on above: Performed By: #### L AB103, LAB17 ####Fashion Intern: REJI HILLEDIN ([phone])[facility] ([facility] Sodium [Moles/Vol] 143 mmol/L Normal 136-145 [facility] Comment on above: Performed By: #### L AB103, LAB17 ####Fashion Intern: REJI CARBALLOCER ([phone])[facility] (SBHLAB)[address] Urea nitrogen [Mass/Vol] 29 mg/dL High 9-23 [facility] Comment on above: Performed By: #### L AB103, LAB17 ####Fashion Intern: REJI BAUTISTACAIN ([phone])[facility] (SBHLAB)[address] Comprehensive metabolic 1998 panelon 10-17-2024 Albumin [Mass/Vol] 2.2 g/dL Low 3.4 - 4.8 g/dL [facility] ALP [Catalytic activity/Vol] 56 U/L 40 - 150 U/L [facility] ALT [Catalytic activity/Vol] U/L NINF - 30 U/L [facility] Anion gap [Moles/Vol] 8 mmol/L 3 - 13 mmol/L [facility] AST [Catalytic activity/Vol] 17 U/L NINF - 34 U/L [facility] Bilirubin [Mass/Vol] 0.3 mg/dL NINF - 1.2 mg/dL [facility] Calcium [Mass/Vol] 8.2 mg/dL Low 8.8 - 10. 0 mg/dL [facility] Chloride [Moles/Vol] 108 mmol/L High 98 - 10 7 mmol/L [facility] CO2 [Moles/Vol] 27 mmol/L 23 - 31 mmol/L [facility] Creatinine [Mass/Vol] 0.76 mg/dL 0.57 - 1.11 mg/dL [facility] GFR/1.73 sq M.predicted (S/P/Bld) [Vol rate/Area] 81.3 mL/min - PINF [facility] Glucose [Mass/Vol] 156 mg/dL High 82 - 115 mg/dL [facility] Interpretation and review of laboratory results Abnormal [facility] Potassium [Moles/Vol] 3.8 mmol/L 3.5 - 5.1 mmol/L [facility] Protein [Mass/Vol] 5.4 g/dL Low 6.4 - 8.3 g/dL [facility] Sodium [Moles/Vol] 143 mmol/L 136 - 145 mmol/L [facility] Urea nitrogen [Mass/Vol] 29 mg/dL High 9 - 23 mg/dL [facility] Laboratory - Chemistry and C hemistry - challengeon 10-17-2024 Glucose [Mass/Vol] 229 mg/dL High 70 - 100 mg/dL [facility] Glucose [Mass/Vol] 222 mg/dL High 70 - 100 mg/dL [facility] Glucose [Mass/Vol] 175 mg/dL High 70 - 100 mg/dL [facility] Glucose [Mass/Vol] 135 mg/dL High 70 - 100 mg/dL [facility] Magnesium [Mass/Vol] 2 mg/dL 1.6 - 2 .6 mg/dL [facility] MAGNESIUMon 10-17-2024 Magnesium [Mass/Vol] 2.0 mg/dL Normal 1.6-2.6 [facility] Comment on above: Result Comment: LANA Rangel COMMENTS:Higher values can be expected in females during menses. Performed By: #### L AB103, LAB17 ####Fashion Intern: REJI HAMILTON ([phone])[facility] (SBAB)[address] [place] [address] Magnesium [Mass/Vol]on 10-17 Interpretation and review of laboratory results Normal [facility] No Panel Informationon 10-17 Interpretation and review of laboratory results Abnormal [facility] Interpretation and review of laboratory results Abnormal [facility] Interpretation and review of laboratory results Abnormal [facility] Interpretation and review of laboratory results Abnormal [facility] Nursing Noteon 10-17-2024 Nursing Note Normal [facility] Nursing Note Normal [facility] Progress Noteon 10-17-2024 Progress Note Normal [facility] Progress Note Normal [facility] Progress Note Normal [facility] Progress Note Normal [facility] XR HAND 3+ VIEWS BILATERALon 10-17-2024 XR HAND 3+ VIEWS BILATERAL Normal [facility] XR Hand - bilateral 3 Viewso n 10-17-2024 [facility] [place] [facility] RADI[facility] Radiology Study observation (narrative) [facility] XR Hand - bilateral 3 ViewsO rdered By: Sascha Guzman on 10-17-2024 [facility] Work Phone: 30on 10-16-2024 30 Normal [facility] [id number] 10-16-2024 [id number] Sent updated notes t o [facility] via [employer] per TCC request. Await review and response regarding ability to accept. TCC notified. Normal [facility] [id number] Normal [facility] [id number] Normal [facility] C. DIFFICILE BY PCR WITH REF TARIQ TO EIAon 10-16-2024 C. DIFFICILE BY PCR WITH REFLEX TO EIA C. DIFFICILE TOXIN PCR Reference Not Detected Not Detected ORDER COMMENTS: C. difficile infection is unlikely to be present. Methodology: Real-time PCR Normal [facility] Comment on above: Performed By: #### L [id number] ####Fashion Intern: MERLE RODRIGUES ([phone])[address] C. difficile toxin genes EZIO +probe Ql (Stl)on 10-16-2024 C. difficile toxin B tcdB gene EZIO+probe Ql (Stl) Not detected Not Detected [facility] Interpretation and review of laboratory results Normal [facility] CBC W Auto Differential pane l (Bld)on 10-16-2024 Basophils (Bld) [#/Vol] 0 10*3/uL 0.0 - 0.2 10*3/uL [facility] Basophils/100 WBC (Bld) 0.4 % 0.0 - 2.0 % [facility] Eosinophils (Bld) [#/Vol] 0.3 10*3/uL 0.0 - 0.5 10*3/uL [facility] Eosinophils/100 WBC (Bld) 5 % 0.0 - 6.0 % [facility] Erythrocyte distribution width (RBC) [Ratio] 14.3 % 11.5 - 15.0 % [facility] Hematocrit (Bld) [Volume fraction] 32.9 % Low 35.0 - 47.0 % [facility] Hemoglobin (Bld) [Mass/Vol] 10.5 g/dL Low 11.7 - 16.0 g/dL [facility] Immature granulocytes (Bld) [#/Vol] 0 10*3/uL NINF - 0.1 10*3/uL [facility] Immature granulocytes/100 WBC (Bld) 0.6 % 0.0 - 2.0 % [facility] Interpretation and review of laboratory results Abnormal [facility] Lymphocytes (Bld) [#/Vol] 2.1 10*3/uL 1.0 - 4.3 10*3/uL [facility] Lymphocytes/100 WBC (Bld) 39.8 % 15.0 - 45.0 % [facility] MCH (RBC) [Entitic mass] 31.2 pg 26.0 - 34.0 pg [facility] MCHC (RBC) [Mass/Vol] 31.9 % 30.5 - 36.0 % [facility] MCV (RBC) [Entitic vol] 97.6 fL 77.0 - 99.0 fL [facility] Monocytes (Bld) [#/Vol] 0.4 10*3/uL 0.0 - 0.9 10*3/uL [facility] Monocytes/100 WBC (Bld) 7.6 % 5.0 - 13.0 % [facility] Neutrophils (Bld) [#/Vol] 2.4 10*3/uL 1.8 - 7.5 10*3/uL [facility] Neutrophils/100 WBC (Bld) 46.6 % 38.0 - 82.0 % [facility] Nucleated RBC/100 WBC (Bld) [Ratio] 0 % [facility] [employer] Platelet mean volume (Bld) [Entitic vol] 10.6 fL 9.0 - 12.7 fL [facility] Platelets (Bld) [#/Vol] 182 10*3/uL 140 - 440 10*3/uL [facility] RBC (Bld) [#/Vol] 3.37 10*6/uL Low 3.80 - 5.2 0 10*6/uL [facility] WBC (Bld) [#/Vol] 5.2 10*3/uL 3.6 - 10.7 10*3/uL [facility] CBC WITH AUTO DIFFERENTIALon 10-16-2024 Basophils (Bld) [#/Vol] 0.0 10*3/uL Normal 0.0-0.2 [facility] Comment on above: Performed By: #### L [id number] ####Fashion Intern: REJI HAMILTON ([phone])[facility] [place] [facility] [place] [address] Basophils/100 WBC (Bld) 0.4 % Normal 0.0-2.0 [facility] Comment on above: Performed By: #### L [id number] ####Fashion Intern: REJI HAMILTON ([id number])[facility] (SB[facility])[address] [place] [address] Eosinophils (Bld) [#/Vol] 0.3 10*3/uL Normal 0.0-0.5 [facility] Comment on above: Performed By: #### L [id number] ####Fashion Intern: REJI HAMILTON ([phone])[facility] [place] (SBAB)[address] [place] [address] Eosinophils/100 WBC (Bld) 5.0 % Normal 0.0-6.0 [facility] Comment on above: Performed By: #### L [id number] ####Fashion Intern: REJI HAMILTON ([id number])[facility] [place] [address] Erythrocyte distribution width (RBC) [Ratio] 14.3 % Normal 11.5-15.0 [facility] Comment on above: Performed By: #### L [id number] ####Fashion Intern: REJI HAMILTON ([phone])[facility] [place] (SBHLAB)[address] Hematocrit (Bld) [Volume fraction] 32.9 % Low 35.0-47.0 [facility] Comment on above: Performed By: #### L [id number] ####Fashion Intern: REJI HAMILTON ([id number])[facility] [place] (SBHLAB)[address] Hemoglobin (Bld) [Mass/Vol] 10.5 g/dL Low 11.7-16.0 [facility] Comment on above: Performed By: #### L [id number] ####Fashion Intern: REJI HAMILTON ([id number])[facility] [place] (SBHLAB)[address] [place] [address] IMMATURE GRANS % 0.6 % Normal 0.0-2.0 [facility] Comment on above: Performed By: #### L [id number] ####Fashion Intern: REJI HAMILTON ([phone])[facility] [place] (SBHLAB)[address] IMMATURE GRANS ABSOLUTE 0.0 10*3/uL Normal <0.1 [facility] Comment on above: Performed By: #### L [id number] ####Fashion Intern: REJI HAMILTON ([phone])[facility] (SBHLAB)[address] [place] [address] Lymphocytes (Bld) [#/Vol] 2.1 10*3/uL Normal 1.0-4.3 [facility] Comment on above: Performed By: #### L [id number] ####Fashion Intern: REJI HAMILTON ([id number])[facility] [place] (SBHLAB)[address] [place] [address] [place] Lymphocytes/100 WBC (Bld) 39.8 % Normal 15.0-45.0 [facility] Comment on above: Performed By: #### L [id number] ####Fashion Intern: REJI HAMILTON ([id number])[facility] [place] (SBHLAB)[address] MCH (RBC) [Entitic mass] 31.2 pg Normal 26.0-34.0 [facility] Comment on above: Performed By: #### L [id number] ####Fashion Intern: REJI HAMILTON ([id number])[facility] [place] (SBHLAB)[address] MCHC 31.9 % Normal 30.5-36.0 [facility] Comment on above: Performed By: #### L [id number] ####Fashion Intern: REJI HAMILTON ([id number])[facility] [place] (SBHLAB)[address] MCV (RBC) [Entitic vol] 97.6 fL Normal 77.0-99.0 [facility] Comment on above: Performed By: #### L [id number] ####Fashion Intern: REJI HAMILTON ([id number])[facility] [place] (SBHLAB)[address] Monocytes (Bld) [#/Vol] 0.4 10*3/uL Normal 0.0-0.9 [facility] Comment on above: Performed By: #### L [id number] ####Fashion Intern: REJI HAMILTON ([phone])[facility] [place] (SBHLAB)[address] Monocytes/100 WBC (Bld) 7.6 % Normal 5.0-13.0 [facility] Comment on above: Performed By: #### L [id number] ####Fashion Intern: REJI HAMILTON ([id number])[facility] [place] (SBHLAB)[address] NEUTROPHILS ABSOLUTE 2.4 10*3/uL Normal 1.8-7.5 [facility] Comment on above: Performed By: #### L [id number] ####Fashion Intern: REJI HAMILTON ([id number])[facility] [place] (SBHLAB)[address] Neutrophils/100 WBC (Bld) 46.6 % Normal 38.0-82.0 [facility] Comment on above: Performed By: #### L [id number] ####Fashion Intern: REJI HAMILTON ([phone])[facility] (SBHLAB)[address] NRBC 0.0 /100 WBCs Normal 0.0-2.0 [facility] Comment on above: Performed By: #### L [id number] ####Fashion Intern: REJI HAMILTON ([id number])[facility] [place] (SBHLAB)[address] Platelet mean volume (Bld) [Entitic vol] 10.6 fL Normal 9.0-12.7 [facility] Comment on above: Performed By: #### L [id number] ####Fashion Intern: REJI HAMILTON ([id number])[facility]OS[facility]ITALMelissa STONEN (SBHLAB)[address] [place] [address] [place] Platelets (Bld) [#/Vol] 182 10*3/uL Normal 140-440 [facility] Comment on above: Performed By: #### L [id number] ####Fashion Intern: REJI HAMILTON ([id number])[facility]ITAL[facility]issa CHRISTYANNN (SBHLAB)[address] [place] [address] [place] RBC (Bld) [#/Vol] 3.37 10*6/uL Low 3.80-5.20 [facility] Comment on above: Performed By: #### L [id number] ####Fashion Intern: REJI HAMILTON ([phone])[facility]ITALMelissa [place]STYERT[place] (SBHLAB)[address] [place] [address] [place] WBC (Bld) [#/Vol] 5.2 10*3/uL Normal 3.6-10.7 [facility] Comment on above: Performed By: #### L [id number] ####Fashion Intern: REJI HAMILTON ([id number])[facility] [place] (SBHLAB)[address] COMPREHENSIVE METABOLIC PANE Fernando 10-16-2024 Albumin [Mass/Vol] 2.2 g/dL Low 3.4-4.8 [facility] Comment on above: Performed By: #### L AB103, LAB17 ####Fashion Intern: REJI HAMILTON ([id number])[facility] [place] (SBHLAB)[address] ALP [Catalytic activity/Vol] 58 U/L Normal 40-150 [facility] Comment on above: Performed By: #### L AB103, LAB17 ####Fashion Intern: REJI HAMILTON ([id number])[facility] [place] (SB[facility]AB)[address] ALT [Catalytic activity/Vol] U/L Normal <30 [facility] Comment on above: Performed By: #### L AB103, LAB17 ####Fashion Intern: REJI HAMILTON ([id number])[facility] [place] (SBHLAB)[address] Anion gap [Moles/Vol] 5 mmol/L Normal 3-13 [facility] Comment on above: Performed By: #### L AB103, LAB17 ####Fashion Intern: REJI HAMILTON ([id number])[facility] [place] (SB[facility]AB)[address] AST [Catalytic activity/Vol] 15 U/L Normal <34 [facility] Comment on above: Performed By: #### L AB103, LAB17 ####Fashion Intern: REJI HAMILTON ([id number])[facility] [place] (SBHLAB)[address] Bilirubin [Mass/Vol] 0.3 mg/dL Normal <1.2 [facility] Comment on above: Performed By: #### L AB103, LAB17 ####Fashion Intern: REJI HAMILTON ([id number])[facility] (SBHLAB)[address] Calcium [Mass/Vol] 8.1 mg/dL Low 8.8-10.0 [facility] Comment on above: Performed By: #### L AB103, LAB17 ####Fashion Intern: REJI HAMILTON ([phone])[facility]NAL[facility] (SBHLAB)[address] Chloride [Moles/Vol] 110 mmol/L High 98-107 [facility] Comment on above: Performed By: #### L AB103, LAB17 ####Fashion Intern: REJI HAMILTON ([id number])[facility] (SBHLAB)[address] CO2 [Moles/Vol] 30 mmol/L Normal 23-31 [facility] Comment on above: Performed By: #### L 103, LAB17 ####Fashion Intern: REJI HAMILTON ([id number])[facility] (SBHLAB)[address] Creatinine [Mass/Vol] 0.74 mg/dL Normal 0.57-1.11 [facility] Comment on above: Performed By: #### L AB103, LAB17 ####Fashion Intern: REJI HAMILTON ([id number])[facility] (SBHLAB)[address] [place] [address] [place] GLOMERULAR FILTRATION RATE ML/MIN/1.73 SQ M.PREDICTED 84.0 mL/min/1.73m*2 Normal >60.0 [facility] Comment on above: Result Comment: Calc ulation based on the Chronic Kidney Disease Epidemiology Collaboration (CKD-EPI) equation refit without adjustment for race Performed By: #### L AB103, LAB17 ####Fashion Intern: REJI HAMILTON ([phone])[facility] (SBHLAB)[address] [place] [address] [place] Glucose [Mass/Vol] 167 mg/dL High 82-115 [facility] Comment on above: Performed By: #### L AB103, LAB17 ####Fashion Intern: REJI HAMILTON ([id number])[facility] (SBHLAB)[address] Potassium [Moles/Vol] 3.8 mmol/L Normal 3.5-5.1 [facility] Comment on above: Result Comment: [facility] potassium values may be up to 0.5 mmol/L lower than serum values. Performed By: #### L AB103, LAB17 ####Fashion Intern: REJI HAMILTON ([id number])[facility] (SBHLAB)[address] Protein [Mass/Vol] 5.4 g/dL Low 6.4-8.3 [facility] Comment on above: Performed By: #### L AB103, LAB17 ####Fashion Intern: REJI HAMILTON ([id number])[facility] (SBHLAB)[address] Sodium [Moles/Vol] 145 mmol/L Normal 136-145 [facility] Comment on above: Performed By: #### L AB103, LAB17 ####Fashion Intern: REJI HAMILTON ([phone])[facility] (SBHLAB)[address] Urea nitrogen [Mass/Vol] 23 mg/dL Normal 9-23 [facility] Comment on above: Performed By: #### L AB103, LAB17 ####Fashion Intern: REJI HAMILTON ([id number])[facility] (SBHLAB)[address] Comprehensive metabolic 1998 panelon 10-16-2024 Albumin [Mass/Vol] 2.2 g/dL Low 3.4 - 4.8 g/dL [facility] ALP [Catalytic activity/Vol] 58 U/L 40 - 150 U/L [facility] ALT [Catalytic activity/Vol] U/L NINF - 30 U/L [facility] Anion gap [Moles/Vol] 5 mmol/L 3 - 13 mmol/L [facility] AST [Catalytic activity/Vol] 15 U/L NINF - 34 U/L [facility] Bilirubin [Mass/Vol] 0.3 mg/dL NINF - 1.2 mg/dL [facility] Calcium [Mass/Vol] 8.1 mg/dL Low 8.8 - 10. 0 mg/dL [facility] Chloride [Moles/Vol] 110 mmol/L High 98 - 10 7 mmol/L [facility] CO2 [Moles/Vol] 30 mmol/L 23 - 31 mmol/L [facility] Creatinine [Mass/Vol] 0.74 mg/dL 0.57 - 1.11 mg/dL [facility] GFR/1.73 sq M.predicted (S/P/Bld) [Vol rate/Area] 84 mL/min - PINF [facility] Glucose [Mass/Vol] 167 mg/dL High 82 - 115 mg/dL [facility] Interpretation and review of laboratory results Abnormal [facility] Potassium [Moles/Vol] 3.8 mmol/L 3.5 - 5.1 mmol/L [facility] Protein [Mass/Vol] 5.4 g/dL Low 6.4 - 8.3 g/dL [facility] Sodium [Moles/Vol] 145 mmol/L 136 - 145 mmol/L [facility] Urea nitrogen [Mass/Vol] 23 mg/dL 9 - 23 mg/dL [facility] Laboratory - Chemistry and C hemistry - challengeon 10-16-2024 Glucose [Mass/Vol] 250 mg/dL High 70 - 100 mg/dL [facility] Glucose [Mass/Vol] 310 mg/dL High 70 - 100 mg/dL [facility] Glucose [Mass/Vol] 220 mg/dL High 70 - 100 mg/dL [facility] Glucose [Mass/Vol] 168 mg/dL High 70 - 100 mg/dL [facility] Magnesium [Mass/Vol] 1.9 mg/dL 1.6 - 2 .6 mg/dL [facility] MAGNESIUMon 10-16-2024 Magnesium [Mass/Vol] 1.9 mg/dL Normal 1.6-2.6 [facility] Comment on above: Result Comment: LANA Rangel COMMENTS:Higher values can be expected in females during menses. Performed By: #### L AB103, LAB17 ####Fashion Intern: REJI HAMILTON ([id number])[facility] ([facility])[address] [place], [place] [id number] [facility] Magnesium [Mass/Vol]on 10-16 Interpretation and review of laboratory results Normal [facility] No Panel Informationon 10-16 Interpretation and review of laboratory results Abnormal [facility] Interpretation and review of laboratory results Abnormal [facility] Interpretation and review of laboratory results Abnormal [facility] Interpretation and review of laboratory results Abnormal [facility] Progress Noteon 10-16-2024 Progress Note Normal [facility] Progress Note Normal [facility] 30on 10-15-2024 30 Normal [facility] [id number] 10-15-2024 [id number] SENT UPDATED NOTES Cherie MAYES via [employer] per TCC request. Await review and response regarding ability to accept. TCC notified. Normal [facility] [id number] Normal [facility] CBC W Auto Differential pane l (Bld)on 10-15-2024 Basophils (Bld) [#/Vol] 0 10*3/uL 0.0 - 0.2 10*3/uL [facility] Basophils/100 WBC (Bld) 0.2 % 0.0 - 2.0 % [facility] Eosinophils (Bld) [#/Vol] 0.3 10*3/uL 0.0 - 0.5 10*3/uL [facility] Eosinophils/100 WBC (Bld) 6.4 % High 0.0 - 6.0 % [facility] Erythrocyte distribution width (RBC) [Ratio] 14.4 % 11.5 - 15.0 % [facility] Hematocrit (Bld) [Volume fraction] 32.9 % Low 35.0 - 47.0 % [facility] Hemoglobin (Bld) [Mass/Vol] 10.3 g/dL Low 11.7 - 16.0 g/dL [facility] Immature granulocytes (Bld) [#/Vol] 0 10*3/uL NINF - 0.1 10*3/uL [facility] Immature granulocytes/100 WBC (Bld) 0.4 % 0.0 - 2.0 % [facility] Interpretation and review of laboratory results Abnormal [facility] Lymphocytes (Bld) [#/Vol] 1.9 10*3/uL 1.0 - 4.3 10*3/uL [facility] Lymphocytes/100 WBC (Bld) 39.1 % 15.0 - 45.0 % [facility] MCH (RBC) [Entitic mass] 30.9 pg 26.0 - 34.0 pg [facility] MCHC (RBC) [Mass/Vol] 31.3 % 30.5 - 36.0 % [facility] MCV (RBC) [Entitic vol] 98.8 fL 77.0 - 99.0 fL [facility] Monocytes (Bld) [#/Vol] 0.3 10*3/uL 0.0 - 0.9 10*3/uL [facility] Monocytes/100 WBC (Bld) 6.9 % 5.0 - 13.0 % [facility] Neutrophils (Bld) [#/Vol] 2.3 10*3/uL 1.8 - 7.5 10*3/uL [facility] Neutrophils/100 WBC (Bld) 47 % 38.0 - 82.0 % [facility] Nucleated RBC/100 WBC (Bld) [Ratio] 0 % [facility] [employer] Platelet mean volume (Bld) [Entitic vol] 11.1 fL 9.0 - 12.7 fL [facility] Platelets (Bld) [#/Vol] 179 10*3/uL 140 - 440 10*3/uL [facility] RBC (Bld) [#/Vol] 3.33 10*6/uL Low 3.80 - 5.2 0 10*6/uL [facility] WBC (Bld) [#/Vol] 4.8 10*3/uL 3.6 - 10.7 10*3/uL [facility] CBC WITH AUTO DIFFERENTIALon 10-15-2024 Basophils (Bld) [#/Vol] 0.0 10*3/uL Normal 0.0-0.2 [facility] Comment on above: Performed By: #### L [id number] ####Fashion Intern: REJI HAMILTON ([phone])[facility] ([facility] [place] [address] Basophils/100 WBC (Bld) 0.2 % Normal 0.0-2.0 [facility] Comment on above: Performed By: #### L [id number] ####Fashion Intern: REJI BAUTISTACAIN ([phone])[facility] (SB[facility])[address] Eosinophils (Bld) [#/Vol] 0.3 10*3/uL Normal 0.0-0.5 [facility] Comment on above: Performed By: #### L [id number] ####Fashion Intern: REJI BAUTISTACAIN ([phone])[facility] ([facility] Eosinophils/100 WBC (Bld) 6.4 % High 0.0-6.0 [facility] Comment on above: Performed By: #### L [id number] ####Fashion Intern: REJI HILLEDIN ([phone])[facility] ([facility])[address] Erythrocyte distribution width (RBC) [Ratio] 14.4 % Normal 11.5-15.0 [facility] Comment on above: Performed By: #### L [id number] ####Fashion Intern: REJI BAUTISTACAIN ([id number])[facility] ([facility])[address] Hematocrit (Bld) [Volume fraction] 32.9 % Low 35.0-47.0 [facility] Comment on above: Performed By: #### L [id number] ####Fashion Intern: REJI BAUTISTACAIN ([id number])[facility] ([facility] Hemoglobin (Bld) [Mass/Vol] 10.3 g/dL Low 11.7-16.0 [facility] Comment on above: Performed By: #### L [id number] ####Fashion Intern: REJI HAMILTON ([phone])[facility] ([facility] IMMATURE GRANS % 0.4 % Normal 0.0-2.0 [facility] Comment on above: Performed By: #### L [id number] ####Fashion Intern: REJI HAMILTON ([phone])[facility] (SBHLAB)[address] IMMATURE GRANS ABSOLUTE 0.0 10*3/uL Normal <0.1 [facility] Comment on above: Performed By: #### L [id number] ####Fashion Intern: REJI HAMILTON ([phone])[facility] (SB[facility])[address] Lymphocytes (Bld) [#/Vol] 1.9 10*3/uL Normal 1.0-4.3 [facility] Comment on above: Performed By: #### L [id number] ####Fashion Intern: REJI HAMILTON ([id number])[facility] ([facility])[address] [place] [address] Lymphocytes/100 WBC (Bld) 39.1 % Normal 15.0-45.0 [facility] Comment on above: Performed By: #### L [id number] ####Fashion Intern: REJI HAMILTON ([id number])[facility] ([facility])[address] [place] [address] MCH (RBC) [Entitic mass] 30.9 pg Normal 26.0-34.0 [facility] Comment on above: Performed By: #### L [id number] ####Fashion Intern: REJI HAMILTON ([phone])[facility] (SB[facility])[address] [place] [address] MCHC 31.3 % Normal 30.5-36.0 [facility] Comment on above: Performed By: #### L [id number] ####Fashion Intern: REJI HAMILTON ([phone])[facility] (SBHLAB)[address] [place] [address] MCV (RBC) [Entitic vol] 98.8 fL Normal 77.0-99.0 [facility] Comment on above: Performed By: #### L [id number] ####Fashion Intern: REJI HAMILTON ([phone])[facility] [place] (SBHLAB)[address] Monocytes (Bld) [#/Vol] 0.3 10*3/uL Normal 0.0-0.9 [facility] Comment on above: Performed By: #### L [id number] ####Fashion Intern: REJI HAMILTON ([id number])[facility] [place] (SBHLAB)[address] Monocytes/100 WBC (Bld) 6.9 % Normal 5.0-13.0 [facility] Comment on above: Performed By: #### L [id number] ####Fashion Intern: REJI AHMILTON ([id number])[facility] [place] (SBHLAB)[address] NEUTROPHILS ABSOLUTE 2.3 10*3/uL Normal 1.8-7.5 [facility] Comment on above: Performed By: #### L [id number] ####Fashion Intern: REJI HAMILTON ([id number])[facility] [place] (SBHLAB)[address] Neutrophils/100 WBC (Bld) 47.0 % Normal 38.0-82.0 [facility] Comment on above: Performed By: #### L [id number] ####Fashion Intern: REJI HAMILTON ([id number])[facility] [place] (SBHLAB)[address] NRBC 0.0 /100 WBCs Normal 0.0-2.0 [facility] Comment on above: Performed By: #### L [id number] ####Fashion Intern: REJI HAMILTON ([id number])[facility] [place] (SBHLAB)[address] Platelet mean volume (Bld) [Entitic vol] 11.1 fL Normal 9.0-12.7 [facility] Comment on above: Performed By: #### L [id number] ####Fashion Intern: REJI HAMILTON ([phone])[facility] [place] (SBHLAB)[address] Platelets (Bld) [#/Vol] 179 10*3/uL Normal 140-440 [facility] Comment on above: Performed By: #### L [id number] ####Fashion Intern: REJI HAMILTON ([id number])[facility] [place] (SBHLAB)[address] RBC (Bld) [#/Vol] 3.33 10*6/uL Low 3.80-5.20 [facility] Comment on above: Performed By: #### L [id number] ####Fashion Intern: REJI HAMILTON ([id number])[facility] [place] (SBHLAB)[address] WBC (Bld) [#/Vol] 4.8 10*3/uL Normal 3.6-10.7 [facility] Comment on above: Performed By: #### L [id number] ####Fashion Intern: REJI HAMILTON ([id number])[facility] [place] (SBHLAB)[address] COMPREHENSIVE METABOLIC PANE Fernando 10-15-2024 Albumin [Mass/Vol] 2.2 g/dL Low 3.4-4.8 [facility] Comment on above: Performed By: #### L [id number], LAB17 ####Fashion Intern: REJI HAMILTON ([id number])[facility] [place] (SBHLAB)[address] ALP [Catalytic activity/Vol] 57 U/L Normal 40-150 [facility] Comment on above: Performed By: #### L AB103, LAB17 ####Fashion Intern: REJI HAMILTON ([id number])[facility] [place] (SBHLAB)[address] ALT [Catalytic activity/Vol] U/L Normal <30 [facility] Comment on above: Performed By: #### L AB103, LAB17 ####Fashion Intern: REJI HAMILTON ([id number])[facility] (SBHLAB)[address] Anion gap [Moles/Vol] 8 mmol/L Normal 3-13 [facility] Comment on above: Performed By: #### L AB103, LAB17 ####Fashion Intern: REJI HAMILTON ([id number])[facility] (SBHLAB)[address] AST [Catalytic activity/Vol] 15 U/L Normal <34 [facility] Comment on above: Performed By: #### L AB103, LAB17 ####Fashion Intern: REJI BAUTISTACAIN ([id number])[facility] (HLAB)[address] Bilirubin [Mass/Vol] 0.2 mg/dL Normal <1.2 [facility] Comment on above: Performed By: #### L AB103, LAB17 ####Fashion Intern: REJI HAMILTON ([phone])[facility] ([facility] Calcium [Mass/Vol] 8.1 mg/dL Low 8.8-10.0 [facility] Comment on above: Performed By: #### L AB103, LAB17 ####Fashion Intern: REJI HAMILTON ([id number])[facility] (HLAB)[address] Chloride [Moles/Vol] 108 mmol/L High 98-107 [facility] Comment on above: Performed By: #### L AB103, LAB17 ####Fashion Intern: REJI HAMILTON ([phone])[facility] (SBHL[facility])[address] CO2 [Moles/Vol] 27 mmol/L Normal 23-31 [facility] Comment on above: Performed By: #### L AB103, LAB17 ####Fashion Intern: REJI HAMILTON ([phone])[facility] (SBHL[facility])[address] Creatinine [Mass/Vol] 0.81 mg/dL Normal 0.57-1.11 [facility] Comment on above: Performed By: #### L AB103, LAB17 ####Fashion Intern: REJI HAMILTON ([id number])[facility] (SBHL[facility])[address] GLOMERULAR FILTRATION RATE ML/MIN/1.73 SQ M.PREDICTED 75.3 mL/min/1.73m*2 Normal >60.0 [facility] Comment on above: Result Comment: Calc ulation based on the Chronic Kidney Disease Epidemiology Collaboration (CKD-EPI) equation refit without adjustment for race Performed By: #### L AB103, LAB17 ####Fashion Intern: REJI HAMILTON ([phone])[facility] ([facility]HL[facility])[address] Glucose [Mass/Vol] 245 mg/dL High 82-115 [facility] Comment on above: Performed By: #### L AB103, LAB17 ####Fashion Intern: REJI HAMILTON ([id number])[facility] ([facility])[address] Potassium [Moles/Vol] 3.9 mmol/L Normal 3.5-5.1 [facility] Comment on above: Result Comment: [facility] potassium values may be up to 0.5 mmol/L lower than serum values. Performed By: #### L AB103, LAB17 ####Fashion Intern: REJI HAMILTON ([id number])[facility] (SBHL[facility])[address] Protein [Mass/Vol] 5.6 g/dL Low 6.4-8.3 [facility] Comment on above: Performed By: #### L AB103, LAB17 ####Fashion Intern: REJI HAMILTON ([id number])[facility] ([facility])[address] Sodium [Moles/Vol] 143 mmol/L Normal 136-145 [facility] Comment on above: Performed By: #### L AB103, LAB17 ####Fashion Intern: REJI HAMILTON ([phone])[facility]ITAL[facility] (SBHLAB)[address] Urea nitrogen [Mass/Vol] 31 mg/dL High 9-23 [facility] Comment on above: Performed By: #### L AB103, LAB17 ####Fashion Intern: REJI HAMILTON ([id number])[facility]ITAL[facility] (SBHLAB)[address] CERVICAL SPINE WO IV CONT RASTon 10-15-2024 CT CERVICAL SPINE WO IV CONTRAST Normal [facility] CT Cervical spine WO contras ton 10-15-2024 [facility] Study observation (narrative) [facility] CT Cervical spine WO contras tOrdered By: Jeffry Cárdenas on 10-15-2024 [facility] Work Phone: Comprehensive metabolic 1998 panelon 10-15-2024 Albumin [Mass/Vol] 2.2 g/dL Low 3.4 - 4.8 g/dL [facility] ALP [Catalytic activity/Vol] 57 U/L 40 - 150 U/L [facility] ALT [Catalytic activity/Vol] U/L NINF - 30 U/L [facility] Anion gap [Moles/Vol] 8 mmol/L 3 - 13 mmol/L [facility] AST [Catalytic activity/Vol] 15 U/L NINF - 34 U/L [facility] Bilirubin [Mass/Vol] 0.2 mg/dL NINF - 1.2 mg/dL [facility] Calcium [Mass/Vol] 8.1 mg/dL Low 8.8 - 10. 0 mg/dL [facility] Chloride [Moles/Vol] 108 mmol/L High 98 - 10 7 mmol/L [facility] CO2 [Moles/Vol] 27 mmol/L 23 - 31 mmol/L [facility] Creatinine [Mass/Vol] 0.81 mg/dL 0.57 - 1.11 mg/dL [facility] GFR/1.73 sq M.predicted (S/P/Bld) [Vol rate/Area] 75.3 mL/min - PINF [facility] Glucose [Mass/Vol] 245 mg/dL High 82 - 115 mg/dL [facility] Interpretation and review of laboratory results Abnormal [facility] Potassium [Moles/Vol] 3.9 mmol/L 3.5 - 5.1 mmol/L [facility] Protein [Mass/Vol] 5.6 g/dL Low 6.4 - 8.3 g/dL [facility] Sodium [Moles/Vol] 143 mmol/L 136 - 145 mmol/L [facility] Urea nitrogen [Mass/Vol] 31 mg/dL High 9 - 23 mg/dL [facility] Laboratory - Chemistry and C hemistry - challengeon 10-15-2024 Glucose [Mass/Vol] 233 mg/dL High 70 - 100 mg/dL [facility] Glucose [Mass/Vol] 214 mg/dL High 70 - 100 mg/dL [facility] Glucose [Mass/Vol] 224 mg/dL High 70 - 100 mg/dL [facility] Magnesium [Mass/Vol] 2 mg/dL 1.6 - 2 .6 mg/dL [facility] MAGNESIUMon 10-15-2024 Magnesium [Mass/Vol] 2.0 mg/dL Normal 1.6-2.6 [facility] Comment on above: Result Comment: LANA Rangel COMMENTS:Higher values can be expected in females during menses. Performed By: #### L AB103, LAB17 ####Fashion Intern: REJI HAMILTON ([phone])[facility] ([facility])[address] [place] [address] Magnesium [Mass/Vol]on 10-15 Interpretation and review of laboratory results Normal [facility] No Panel Informationon 10-15 Interpretation and review of laboratory results Abnormal [facility] Interpretation and review of laboratory results Abnormal [facility] Interpretation and review of laboratory results Abnormal [facility] Nursing Noteon 10-15-2024 Nursing Note Normal [facility] Nursing Note Normal [facility] Nursing Note Normal [facility] Nursing Note 10/15/24 06:00 AM: P atient refused dressing changes this am. Normal [facility] Progress Noteon 10-15-2024 Progress Note Normal [facility] Progress Note Normal [facility] Progress Note Normal [facility] 30on 10-14-2024 30 Normal [facility] [id number] 10-14-2024 [id number] Normal [facility] CALCIUM, IONIZEDon 5 CALCIUM IONIZED 4.40 mg/dL Normal 4.30-5.20 [facility] Comment on above: Performed By: #### L AB54 ####Fashion Intern: REJI HAMILTON ([phone])[facility] ([facility])[address] [place] [address] PH, IONIZED CALCIUM 7.40 Normal 7.31-7.46 [facility] Comment on above: Performed By: #### L AB54 ####Fashion Intern: REJI HAMILTON ([phone])[facility] ([facility])[address] [place] [address] CBC W Auto Differential pane l (Bld)on 10-14-2024 Basophils (Bld) [#/Vol] 0 10*3/uL 0.0 - 0.2 10*3/uL [facility] Basophils/100 WBC (Bld) 0.4 % 0.0 - 2.0 % [facility] Eosinophils (Bld) [#/Vol] 0.3 10*3/uL 0.0 - 0.5 10*3/uL [facility] Eosinophils/100 WBC (Bld) 6.7 % High 0.0 - 6.0 % [facility] Erythrocyte distribution width (RBC) [Ratio] 14.3 % 11.5 - 15.0 % [facility] Hematocrit (Bld) [Volume fraction] 33.7 % Low 35.0 - 47.0 % [facility] Hemoglobin (Bld) [Mass/Vol] 10.6 g/dL Low 11.7 - 16.0 g/dL [facility] Immature granulocytes (Bld) [#/Vol] 0 10*3/uL NINF - 0.1 10*3/uL [facility] Immature granulocytes/100 WBC (Bld) 0.4 % 0.0 - 2.0 % [facility] Interpretation and review of laboratory results Abnormal [facility] Lymphocytes (Bld) [#/Vol] 1.7 10*3/uL 1.0 - 4.3 10*3/uL [facility] Lymphocytes/100 WBC (Bld) 37 % 15.0 - 45.0 % [facility] MCH (RBC) [Entitic mass] 31.1 pg 26.0 - 34.0 pg [facility] MCHC (RBC) [Mass/Vol] 31.5 % 30.5 - 36.0 % [facility] MCV (RBC) [Entitic vol] 98.8 fL 77.0 - 99.0 fL [facility] Monocytes (Bld) [#/Vol] 0.4 10*3/uL 0.0 - 0.9 10*3/uL [facility] Monocytes/100 WBC (Bld) 8.3 % 5.0 - 13.0 % [facility] Neutrophils (Bld) [#/Vol] 2.2 10*3/uL 1.8 - 7.5 10*3/uL [facility] Neutrophils/100 WBC (Bld) 47.2 % 38.0 - 82.0 % [facility] Nucleated RBC/100 WBC (Bld) [Ratio] 0 % [facility] Platelet mean volume (Bld) [Entitic vol] 10.9 fL 9.0 - 12.7 fL [facility] Platelets (Bld) [#/Vol] 154 10*3/uL 140 - 440 10*3/uL [facility] RBC (Bld) [#/Vol] 3.41 10*6/uL Low 3.80 - 5.2 0 10*6/uL [facility] WBC (Bld) [#/Vol] 4.6 10*3/uL 3.6 - 10.7 10*3/uL [facility] CBC WITH AUTO DIFFERENTIALon 10-14-2024 Basophils (Bld) [#/Vol] 0.0 10*3/uL Normal 0.0-0.2 [facility] Comment on above: Performed By: #### L [id number] ####Fashion Intern: REJI HAMILTON ([phone])[facility] (SBHLAB)[address] Basophils/100 WBC (Bld) 0.4 % Normal 0.0-2.0 [facility] Comment on above: Performed By: #### L [id number] ####Fashion Intern: REJI BAUTISTACAIN ([id number])[facility] [place] (SBHLAB)[address] Eosinophils (Bld) [#/Vol] 0.3 10*3/uL Normal 0.0-0.5 [facility] Comment on above: Performed By: #### L [id number] ####Fashion Intern: REJI HAMILTON ([phone])[facility] [place] (SBHLAB)[address] Eosinophils/100 WBC (Bld) 6.7 % High 0.0-6.0 [facility] Comment on above: Performed By: #### L [id number] ####Fashion Intern: REJI HAMILTON ([phone])[facility] [place] (SBHLAB)[address] Erythrocyte distribution width (RBC) [Ratio] 14.3 % Normal 11.5-15.0 [facility] Comment on above: Performed By: #### L [id number] ####Fashion Intern: REJI HAMILTON ([phone])[facility] [place] (SBHLAB)[address] [place] [address] Hematocrit (Bld) [Volume fraction] 33.7 % Low 35.0-47.0 [facility] Comment on above: Performed By: #### L [id number] ####Fashion Intern: REJI HAMILTON ([phone])[facility] [place] (SBHLAB)[address] Hemoglobin (Bld) [Mass/Vol] 10.6 g/dL Low 11.7-16.0 [facility] Comment on above: Performed By: #### L [id number] ####Fashion Intern: REJI HAMILTON ([phone])[facility] [place] (SBHL[facility])[address] IMMATURE GRANS % 0.4 % Normal 0.0-2.0 [facility] Comment on above: Performed By: #### L [id number] ####Fashion Intern: REJI BAUTISTACAIN ([id number])[facility] [place] (SBHLAB)[address] IMMATURE GRANS ABSOLUTE 0.0 10*3/uL Normal <0.1 [facility] Comment on above: Performed By: #### L [id number] ####Fashion Intern: REJI HAMILTON ([id number])[facility] [place] (SBHL[facility])[address] Lymphocytes (Bld) [#/Vol] 1.7 10*3/uL Normal 1.0-4.3 [facility] Comment on above: Performed By: #### L [id number] ####Fashion Intern: REJI HAMILTON ([phone])[facility] (SB[facility])[address] Lymphocytes/100 WBC (Bld) 37.0 % Normal 15.0-45.0 [facility] Comment on above: Performed By: #### L [id number] ####Fashion Intern: REJI HAMILTON ([phone])[facility] [place] (SBHLAB)[address] MCH (RBC) [Entitic mass] 31.1 pg Normal 26.0-34.0 [facility] Comment on above: Performed By: #### L [id number] ####Fashion Intern: REJI HAMILTON ([phone])[facility] [place] (SB[facility])[address] MCHC 31.5 % Normal 30.5-36.0 [facility] Comment on above: Performed By: #### L [id number] ####Fashion Intern: REJI HAMILTON ([phone])[facility] [place] (SB[facility])[address] MCV (RBC) [Entitic vol] 98.8 fL Normal 77.0-99.0 [facility] Comment on above: Performed By: #### L [id number] ####Fashion Intern: REJI HAMILTON ([phone])[facility] [place] (SBHLAB)[address] Monocytes (Bld) [#/Vol] 0.4 10*3/uL Normal 0.0-0.9 [facility] Comment on above: Performed By: #### L [id number] ####Fashion Intern: REJI HAMILTON ([id number])[facility] [place] ([facility])[address] Monocytes/100 WBC (Bld) 8.3 % Normal 5.0-13.0 [facility] Comment on above: Performed By: #### L [id number] ####Fashion Intern: REJI HAMILTON ([id number])[facility] [place] (SB[facility])[address] NEUTROPHILS ABSOLUTE 2.2 10*3/uL Normal 1.8-7.5 [facility] Comment on above: Performed By: #### L [id number] ####Fashion Intern: REJI HAMILTON ([id number])[facility] [place] (SB[facility])[address] Neutrophils/100 WBC (Bld) 47.2 % Normal 38.0-82.0 [facility] Comment on above: Performed By: #### L [id number] ####Fashion Intern: REJI HAMILTON ([id number])[facility] [place] ([facility])[address] NRBC 0.0 /100 WBCs Normal 0.0-2.0 [facility] Comment on above: Performed By: #### L [id number] ####Fashion Intern: REJI HAMILTON ([id number])[facility] [place] (SBHLAB)[address] [place] [address] [place] Platelet mean volume (Bld) [Entitic vol] 10.9 fL Normal 9.0-12.7 [facility] Comment on above: Performed By: #### L [id number] ####Fashion Intern: REJI HAMILTON ([phone])[facility] ([facility])[address] Platelets (Bld) [#/Vol] 154 10*3/uL Normal 140-440 [facility] Comment on above: Performed By: #### L [id number] ####Fashion Intern: REJI HAMILTON ([phone])[facility]ITALMelissa CH[facility]YALBUQUERQUE [facility]ICN (SBHLAB)[address] RBC (Bld) [#/Vol] 3.41 10*6/uL Low 3.80-5.20 [facility] Comment on above: Performed By: #### L [id number] ####Fashion Intern: REJI HAMILTON ([id number])[facility]OSPITALMelissa CHRISTYANNN (SBHLAB)[address] WBC (Bld) [#/Vol] 4.6 10*3/uL Normal 3.6-10.7 [facility] Comment on above: Performed By: #### L [id number] ####Fashion Intern: REJI HAMILTON ([id number])[facility]OS[facility]ITALMelissa CHRISTYBELLA (SBHLAB)[address] COMPREHENSIVE METABOLIC PANE Fernando 10-14-2024 Albumin [Mass/Vol] 2.2 g/dL Low 3.4-4.8 [facility] Comment on above: Performed By: #### L [id number], [id number], [id number] ####Fashion Intern: REJI HAMILTON ([id number])[facility]OS[facility]ITALMelissa CHRISTYEBLLA (SBHLAB)[address] ALP [Catalytic activity/Vol] 59 U/L Normal 40-150 [facility] Comment on above: Performed By: #### L [id number], LAB17, [id number] ####Fashion Intern: REJI HAMILTON ([id number])[facility]OS[facility]ITALMelissa BERTHAN (SBHLAB)[address] ALT [Catalytic activity/Vol] U/L Normal <30 [facility] Comment on above: Performed By: #### L [id number], LAB17, [id number] ####Fashion Intern: REJI HAMILTON ([phone])[facility] (SBHLAB)[address] Anion gap [Moles/Vol] 9 mmol/L Normal 3-13 [facility] Comment on above: Performed By: #### L AB103, LAB17, [id number] ####Fashion Intern: REJI HAMILTON ([phone])[facility] HOSPITALMelissa STONEN (SBHLAB)[address] AST [Catalytic activity/Vol] 16 U/L Normal <34 [facility] Comment on above: Performed By: #### Gómez ABBridger, LAB17, [id number] ####Fashion Intern: REJI HAMILTON ([phone])[facility] HOSPITALMelissa STONEN (SBHLAB)[address] Bilirubin [Mass/Vol] 0.3 mg/dL Normal <1.2 [facility] Comment on above: Performed By: #### L AB103, LAB17, [id number] ####Fashion Intern: REJI HAMILTON ([id number])[facility] HOSPITALMelissa CHRISTYANNN (SBHLAB)[address] Calcium [Mass/Vol] 8.1 mg/dL Low 8.8-10.0 [facility] Comment on above: Performed By: #### L AB103, LAB17, [id number] ####Fashion Intern: REJI HAMILTON ([id number])[facility] HOSPITALMelissa STONEN (SBHLAB)[address] [place] [address] [place] Chloride [Moles/Vol] 109 mmol/L High 98-107 [facility] Comment on above: Performed By: #### L AB103, LAB17, KDP163 ####Fashion Intern: REJI HAMILTON ([id number])[facility]OSPITALMelissa SERNA (SBHLAB)[address] [place] [address] [place] CO2 [Moles/Vol] 26 mmol/L Normal 23-31 [facility] Comment on above: Performed By: #### Gómez AB103, LAB17, [id number] ####Fashion Intern: REJI HAMILTON ([id number])[facility] HOSPITALMleissa CHRISTYCOBALT [facility] (SBHLAB)[address] Creatinine [Mass/Vol] 0.78 mg/dL Normal 0.57-1.11 [facility] Comment on above: Performed By: #### L AB103, LAB17, [id number] ####Fashion Intern: REJI HAMILTON ([id number])[facility]OSPITALMelissa CHRISTYCOBALT [facility] (HLAB)[address] GLOMERULAR FILTRATION RATE ML/MIN/1.73 SQ M.PREDICTED 78.8 mL/min/1.73m*2 Normal >60.0 [facility] Comment on above: Result Comment: Calc ulation based on the Chronic Kidney Disease Epidemiology Collaboration (CKD-EPI) equation refit without adjustment for race Performed By: #### Gómez ABBridger, LAB17, [id number] ####Fashion Intern: REJI HAMILTON ([phone])[facility] HOSPITALMelissa [place] (SBHLAB)[address] Glucose [Mass/Vol] 171 mg/dL High 82-115 [facility] Comment on above: Performed By: #### Gómez LEVINE, LAB17, [id number] ####Fashion Intern: REJI HAMILTON ([id number])[facility]OS[facility]ITALMelissa CHRISTYCOB[facility] (SBHLAB)[address] [place] [address] [place] Potassium [Moles/Vol] 4.0 mmol/L Normal 3.5-5.1 [facility] Comment on above: Result Comment: [facility] potassium values may be up to 0.5 mmol/L lower than serum values. Performed By: #### L AB103, LAB17, [id number] ####Fashion Intern: REJI HAMILTON ([id number])[facility] JAELYNCOBALT [facility] (SBHLAB)[address] [place] [address] [place] Protein [Mass/Vol] 5.5 g/dL Low 6.4-8.3 [facility] Comment on above: Performed By: #### L AB103, LAB17, [id number] ####Fashion Intern: REJI HAMILTON ([id number])[facility] JAELYNCOBALT [facility] (SBHLAB)[address] Sodium [Moles/Vol] 144 mmol/L Normal 136-145 [facility] Comment on above: Performed By: #### L AB103, LAB17, [id number] ####Fashion Intern: REJI CARBALLOCER ([phone])[facility] (SBHLAB)[address] Urea nitrogen [Mass/Vol] 32 mg/dL High 9-23 [facility] Comment on above: Performed By: #### L AB103, LAB17, [id number] ####Fashion Intern: REJI HAMILTON ([id number])[facility] (SBHLAB)[address] Calcium.ionized [Moles/Vol]o n 10-14-2024 Calcium.ionized (Bld) [Moles/Vol] 4.4 mg/dL 4.30 - 5.20 mg/dL [facility] Interpretation and review of laboratory results Normal [facility] PH, IONIZED CALCIUM 7.4 7.31 - 7.46 [facility] Comprehensive metabolic 1998 panelon 10-14-2024 Albumin [Mass/Vol] 2.2 g/dL Low 3.4 - 4.8 g/dL [facility] ALP [Catalytic activity/Vol] 59 U/L 40 - 150 U/L [facility] ALT [Catalytic activity/Vol] U/L NINF - 30 U/L [facility] Anion gap [Moles/Vol] 9 mmol/L 3 - 13 mmol/L [facility] AST [Catalytic activity/Vol] 16 U/L NINF - 34 U/L [facility] Bilirubin [Mass/Vol] 0.3 mg/dL NINF - 1.2 mg/dL [facility] Calcium [Mass/Vol] 8.1 mg/dL Low 8.8 - 10. 0 mg/dL [facility] Chloride [Moles/Vol] 109 mmol/L High 98 - 10 7 mmol/L [facility] CO2 [Moles/Vol] 26 mmol/L 23 - 31 mmol/L [facility] Creatinine [Mass/Vol] 0.78 mg/dL 0.57 - 1.11 mg/dL [facility] GFR/1.73 sq M.predicted (S/P/Bld) [Vol rate/Area] 78.8 mL/min - PINF [facility] Glucose [Mass/Vol] 171 mg/dL High 82 - 115 mg/dL [facility] Interpretation and review of laboratory results Abnormal [facility] Potassium [Moles/Vol] 4 mmol/L 3.5 - 5.1 mmol/L [facility] Protein [Mass/Vol] 5.5 g/dL Low 6.4 - 8.3 g/dL [facility] Sodium [Moles/Vol] 144 mmol/L 136 - 145 mmol/L [facility] Urea nitrogen [Mass/Vol] 32 mg/dL High 9 - 23 mg/dL [facility] Consulton 10-14-2024 Consult Vancomycin therapy h as been discontinued by Dr Rivera on 10-14-24. Thank you for the consult. Pharmacy signing off for vancomycin dosing. Anibal Celeste [facility], Date: 10/14/24 Time: 2:56 PM Normal [facility] Consult Normal [facility] Laboratory - Chemistry and C hemistry - challengeon 10-14-2024 Glucose [Mass/Vol] 252 mg/dL High 70 - 100 mg/dL [facility] Glucose [Mass/Vol] 265 mg/dL High 70 - 100 mg/dL [facility] Glucose [Mass/Vol] 201 mg/dL High 70 - 100 mg/dL [facility] Magnesium [Mass/Vol] 1.9 mg/dL 1.6 - 2 .6 mg/dL [facility] Laboratory - Drug toxicology on 10-14-2024 Vancomycin [Mass/Vol] 21.7 ug/mL [facility] MAGNESIUMon 10-14-2024 Magnesium [Mass/Vol] 1.9 mg/dL Normal 1.6-2.6 [facility] Comment on above: Result Comment: ORDE R COMMENTS:Higher values can be expected in females during menses. Performed By: #### L AB103, LAB17, [id number] ####Fashion Intern: REJI HAMILTON ([phone])[facility] KAREEM (SBHLAB)[address] [place] [address] [place] Magnesium [Mass/Vol]on 10-14 [facility] No Panel Informationon 10-14 Interpretation and review of laboratory results Abnormal [facility] Interpretation and review of laboratory results Abnormal [facility] Interpretation and review of laboratory results Abnormal [facility] Interpretation and review of laboratory results Normal [facility] Nursing Noteon 10-14-2024 Nursing Note Report called to Menendez RN on [address]. Fabiana Roman RN 10/14/2024 6:14 PM Normal [facility] Nursing Note Unable to do MRI scr eening at this time. Patient confused and refusing to answer questions. Fabiana Roman RN 10/14/2024 4:38 PM Normal [facility] Nursing Note Patient continues to refuse hygiene care at this time. "Doesn't want to be touched: Fabiana Roman RN 10/14/2024 4:15 PM Normal [facility] Nursing Note Patient refusing mor wilma care. Refusing assessment. Refusing wound care. Fabiana Roman RN 10/14/2024 8:43 AM Normal [facility] PHOSPHORUSon 10-14-2024 Phosphate [Mass/Vol] 2.6 mg/dL Normal 2.3-4.7 [facility] Comment on above: Performed By: #### L AB103, LAB17, [id number] ####Fashion Intern: REJI HAMILTON ([id number])[facility]OS[facility]ITALMelissa CHRISTYBELLA (SBHLAB)[address] [place] [address] [place] Phosphate [Moles/Vol]on 09-30 Phosphate [Mass/Vol] 2.6 mg/dL 2.3 - 4 .7 mg/dL [facility] Progress Noteon 10-14-2024 Progress Note Normal [facility] Progress Note Normal [facility] Progress Note Normal [facility] VANCOMYCIN, RANDOMon 025 VANCOMYCIN 21.7 ug/mL Normal [facility] Comment on above: Result Comment: LANA Rangel COMMENTS:Ok to draw with morning labs. Please draw at least 2 hours after Vancomycin infusion has stopped.Toxicity is seen at concentrations >80-100 ug/mLTherapeutic (Peak) range: 20-40Therapeutic (Trough) range: 5-10 Performed By: #### L AB40 ####Fashion Intern: REJI HAMILTON ([phone])[facility]OSPITALMelissa JAELYNBELLA (SBHLAB)[address] [place] [address] [place] 30on 10-13-2024 30 Normal [facility] [id number] 10-13-2024 [id number] Normal [facility] Bacteria identified Cx Nom ( Bld)Ordered By: Melody Nunez on 10-13-2024 Interpretation and review of laboratory results Abnormal [facility] CALCIUM, IONIZEDon CALCIUM IONIZED 4.30 mg/dL Normal 4.30-5.20 [facility] Comment on above: Performed By: #### L AB54 ####Fashion Intern: REJI HAMILTON ([id number])[facility] HOSPITALMelissa BANNERBELLA (SBHLAB)[address] [place] [address] PH, IONIZED CALCIUM 7.41 Normal 7.31-7.46 [facility] Comment on above: Performed By: #### L AB54 ####Fashion Intern: REJI HAMILTON ([phone])[facility] HOSPITALBELLA (SBHLAB)[address] [place] [address] CBC W Auto Differential pane l (Bld)on 10-13-2024 Basophils (Bld) [#/Vol] 0 10*3/uL 0.0 - 0.2 10*3/uL [facility] Basophils/100 WBC (Bld) 0.5 % 0.0 - 2.0 % [facility] Eosinophils (Bld) [#/Vol] 0.3 10*3/uL 0.0 - 0.5 10*3/uL [facility] Eosinophils/100 WBC (Bld) 5.9 % 0.0 - 6.0 % [facility] Erythrocyte distribution width (RBC) [Ratio] 14.5 % 11.5 - 15.0 % [facility] Hematocrit (Bld) [Volume fraction] 32.8 % Low 35.0 - 47.0 % [facility] Hemoglobin (Bld) [Mass/Vol] 10.5 g/dL Low 11.7 - 16.0 g/dL [facility] Immature granulocytes (Bld) [#/Vol] 0 10*3/uL NINF - 0.1 10*3/uL [facility] Immature granulocytes/100 WBC (Bld) 0.2 % 0.0 - 2.0 % [facility] Interpretation and review of laboratory results Abnormal [facility] Lymphocytes (Bld) [#/Vol] 1.5 10*3/uL 1.0 - 4.3 10*3/uL [facility] Lymphocytes/100 WBC (Bld) 33 % 15.0 - 45.0 % [facility] MCH (RBC) [Entitic mass] 31.3 pg 26.0 - 34.0 pg [facility] MCHC (RBC) [Mass/Vol] 32 % 30.5 - 36.0 % [facility] MCV (RBC) [Entitic vol] 97.9 fL 77.0 - 99.0 fL [facility] Monocytes (Bld) [#/Vol] 0.3 10*3/uL 0.0 - 0.9 10*3/uL [facility] Monocytes/100 WBC (Bld) 7 % 5.0 - 13.0 % [facility] Neutrophils (Bld) [#/Vol] 2.4 10*3/uL 1.8 - 7.5 10*3/uL [facility] Neutrophils/100 WBC (Bld) 53.4 % 38.0 - 82.0 % [facility] Nucleated RBC/100 WBC (Bld) [Ratio] 0 % [facility] Platelet mean volume (Bld) [Entitic vol] 11.3 fL 9.0 - 12.7 fL [facility] Platelets (Bld) [#/Vol] 152 10*3/uL 140 - 440 10*3/uL [facility] RBC (Bld) [#/Vol] 3.35 10*6/uL Low 3.80 - 5.2 0 10*6/uL [facility] WBC (Bld) [#/Vol] 4.4 10*3/uL 3.6 - 10.7 10*3/uL [facility] CBC WITH AUTO DIFFERENTIALon 10-13-2024 Basophils (Bld) [#/Vol] 0.0 10*3/uL Normal 0.0-0.2 [facility] Comment on above: Performed By: #### L [id number] ####Fashion Intern: REJI HAMILTON ([id number])[facility] (SBHLAB)[address] Basophils/100 WBC (Bld) 0.5 % Normal 0.0-2.0 [facility] Comment on above: Performed By: #### L [id number] ####Fashion Intern: REJI HAMILTON ([id number])[facility]ITALA [place] (SBHLAB)[address] Eosinophils (Bld) [#/Vol] 0.3 10*3/uL Normal 0.0-0.5 [facility] Comment on above: Performed By: #### L [id number] ####Fashion Intern: REJI HAMILTON ([id number])[facility]ITALA [place] (SBHLAB)[address] Eosinophils/100 WBC (Bld) 5.9 % Normal 0.0-6.0 [facility] Comment on above: Performed By: #### L [id number] ####Fashion Intern: REJI HAMILTON ([id number])[facility]ITALA [place] (SBHLAB)[address] [place] [address] Erythrocyte distribution width (RBC) [Ratio] 14.5 % Normal 11.5-15.0 [facility] Comment on above: Performed By: #### L [id number] ####Fashion Intern: REJI HAMILTON ([id number])[facility]ITALA [place] (SBHLAB)[address] [place] [address] Hematocrit (Bld) [Volume fraction] 32.8 % Low 35.0-47.0 [facility] Comment on above: Performed By: #### L [id number] ####Fashion Intern: REJI HAMILTON ([id number])[facility]ITALA [place] (SBHLAB)[address] Hemoglobin (Bld) [Mass/Vol] 10.5 g/dL Low 11.7-16.0 [facility] Comment on above: Performed By: #### L [id number] ####Fashion Intern: REJI HAMILTON ([id number])[facility] H[facility]ITALA BARBALBUQU[facility]N (SBHLAB)[address] IMMATURE GRANS % 0.2 % Normal 0.0-2.0 [facility] Comment on above: Performed By: #### L [id number] ####Fashion Intern: RJEI HAMILTON ([phone])[facility]ITALA BARBALBUQU[facility]N (SBHLAB)[address] IMMATURE GRANS ABSOLUTE 0.0 10*3/uL Normal <0.1 [facility] Comment on above: Performed By: #### L [id number] ####Fashion Intern: REJI HAMILTON ([phone])[facility]ITALA BARBALBUQU[facility]N (SBHLAB)[address] [place] [address] Lymphocytes (Bld) [#/Vol] 1.5 10*3/uL Normal 1.0-4.3 [facility] Comment on above: Performed By: #### L [id number] ####Fashion Intern: REJI HAMILTON ([phone])[facility] HOSPITALDarian (SBHLAB)[address] [place] [address] Lymphocytes/100 WBC (Bld) 33.0 % Normal 15.0-45.0 [facility] Comment on above: Performed By: #### L [id number] ####Fashion Intern: REJI HAMILTON ([id number])[facility]ITALA [facility]BAL[facility]N (SBHLAB)[address] MCH (RBC) [Entitic mass] 31.3 pg Normal 26.0-34.0 [facility] Comment on above: Performed By: #### L [id number] ####Fashion Intern: REJI HAMILTON ([id number])[facility] (SBHLAB)[address] MCHC 32.0 % Normal 30.5-36.0 [facility] Comment on above: Performed By: #### L [id number] ####Fashion Intern: REJI BAUTISTACAIN ([id number])[facility] (SBHLAB)[address] MCV (RBC) [Entitic vol] 97.9 fL Normal 77.0-99.0 [facility] Comment on above: Performed By: #### L [id number] ####Fashion Intern: REJI HAMILTON ([id number])[facility] (SBHLAB)[address] Monocytes (Bld) [#/Vol] 0.3 10*3/uL Normal 0.0-0.9 [facility] Comment on above: Performed By: #### L [id number] ####Fashion Intern: REJI HAMILTON ([phone])[facility]ITALA [place] (SBHLAB)[address] Monocytes/100 WBC (Bld) 7.0 % Normal 5.0-13.0 [facility] Comment on above: Performed By: #### L [id number] ####Fashion Intern: REJI HAMILTON ([id number])[facility] (SBHLAB)[address] NEUTROPHILS ABSOLUTE 2.4 10*3/uL Normal 1.8-7.5 [facility] Comment on above: Performed By: #### L [id number] ####Fashion Intern: REJI HAMILTON ([id number])[facility]A [place] (SBHLAB)[address] Neutrophils/100 WBC (Bld) 53.4 % Normal 38.0-82.0 [facility] Comment on above: Performed By: #### L [id number] ####Fashion Intern: REJI HAMILTON ([id number])[facility] (SBHLAB)[address] NRBC 0.0 /100 WBCs Normal 0.0-2.0 [facility] Comment on above: Performed By: #### L [id number] ####Fashion Intern: REJI HAMILTON ([id number])[facility]A [place] (SBHLAB)[address] Platelet mean volume (Bld) [Entitic vol] 11.3 fL Normal 9.0-12.7 [facility] Comment on above: Performed By: #### L [id number] ####Fashion Intern: REJI HAMILTON ([id number])[facility]A [place] (SBHLAB)[address] Platelets (Bld) [#/Vol] 152 10*3/uL Normal 140-440 [facility] Comment on above: Performed By: #### L [id number] ####Fashion Intern: REJI HAMILTON ([id number])[facility]A [place] (SBHLAB)[address] RBC (Bld) [#/Vol] 3.35 10*6/uL Low 3.80-5.20 [facility] Comment on above: Performed By: #### L [id number] ####Fashion Intern: REJI HAMILTON ([id number])[facility]ITALA [facility]BAL[facility]N (SBHLAB)[address] WBC (Bld) [#/Vol] 4.4 10*3/uL Normal 3.6-10.7 [facility] Comment on above: Performed By: #### L [id number] ####Fashion Intern: REJI HAMILTON ([phone])[facility]A [place] (SBHLAB)[address] COMPREHENSIVE METABOLIC PANE Fernando 10-13-2024 Albumin [Mass/Vol] 2.1 g/dL Low 3.4-4.8 [facility] Comment on above: Performed By: #### L AB113, [id number], LAB17 ####Fashion Intern: REJI HAMILTON ([id number])[facility] (SBHLAB)[address] [place] [address] [place] ALP [Catalytic activity/Vol] 61 U/L Normal 40-150 [facility] Comment on above: Performed By: #### L AB113, [id number], LAB17 ####Fashion Intern: REJI HAMILTON ([id number])[facility]A [place] (SBHLAB)[address] [place] [address] [place] ALT [Catalytic activity/Vol] 7 U/L Normal <30 [facility] Comment on above: Performed By: #### L AB113, DCC303, LAB17 ####Fashion Intern: REJI HAMILTON ([id number])[facility]A [place] (SBHLAB)[address] Anion gap [Moles/Vol] 9 mmol/L Normal 3-13 [facility] Comment on above: Performed By: #### L AB113, [id number], LAB17 ####Fashion Intern: REJI HAMILTON ([id number])[facility]A [place] (SBHLAB)[address] [place] [address] [place] AST [Catalytic activity/Vol] 18 U/L Normal <34 [facility] Comment on above: Performed By: #### L AB113, GSR165, LAB17 ####Fashion Intern: REJI HAMILTON ([id number])[facility]A [place] (SBHLAB)[address] [place] [address] [place] Bilirubin [Mass/Vol] 0.3 mg/dL Normal <1.2 [facility] Comment on above: Performed By: #### L AB113, CAB375, LAB17 ####Fashion Intern: REJI HAMILTON ([id number])[facility]A [place] (SBHLAB)[address] [place] [address] [place] Calcium [Mass/Vol] 8.0 mg/dL Low 8.8-10.0 [facility] Comment on above: Performed By: #### L AB113, [id number], LAB17 ####Fashion Intern: REJI HAMILTON ([id number])IMELDAA [place] (SBHLAB)[address] [place] [address] [place] Chloride [Moles/Vol] 107 mmol/L Normal 98-107 [facility] Comment on above: Performed By: #### L AB113, [id number], LAB17 ####Fashion Intern: REJI HAMILTON ([id number])[facility]A [place] (SBHLAB)[address] [place] [address] [place] CO2 [Moles/Vol] 26 mmol/L Normal 23-31 [facility] Comment on above: Performed By: #### Gómez ABLeighann, [id number], LAB17 ####Fashion Intern: REJI HAMILTON ([id number])[facility]A [facility]BAL[facility]N (SBHLAB)[address] Creatinine [Mass/Vol] 0.82 mg/dL Normal 0.57-1.11 [facility] Comment on above: Performed By: #### Gómez BLANCO, [id number], LAB17 ####Fashion Intern: REJI HAMILTON ([id number])[facility] HOSPITALMelissa CHRISTYALBUQUERQUE INDIAN DENTAL CLINICN (SBHLAB)[address] [place] [address] [place] GLOMERULAR FILTRATION RATE ML/MIN/1.73 SQ M.PREDICTED 74.2 mL/min/1.73m*2 Normal >60.0 [facility] Comment on above: Result Comment: Calc ulation based on the Chronic Kidney Disease Epidemiology Collaboration (CKD-EPI) equation refit without adjustment for race Performed By: #### L FRANCIS, [id number], LAB17 ####Fashion Intern: REJI HAMILTON ([id number])[facility]A [place] (SBHLAB)[address] [place] [address] [place] Glucose [Mass/Vol] 299 mg/dL High 82-115 [facility] Comment on above: Performed By: #### L AB113, [id number], LAB17 ####Fashion Intern: REJI HAMILTON ([id number])[facility]A [place] (SBHLAB)[address] [place] [address] [place] Potassium [Moles/Vol] 3.9 mmol/L Normal 3.5-5.1 [facility] Comment on above: Result Comment: [facility] potassium values may be up to 0.5 mmol/L lower than serum values. Performed By: #### L AB113, WCR190, LAB17 ####Fashion Intern: REJI HAMILTON ([id number])[facility] (SBHLAB)[address] Protein [Mass/Vol] 5.6 g/dL Low 6.4-8.3 [facility] Comment on above: Performed By: #### L AB113, MGK611, LAB17 ####Fashion Intern: REJI HAMILTON ([id number])[facility]A [place] (SBHLAB)[address] Sodium [Moles/Vol] 142 mmol/L Normal 136-145 [facility] Comment on above: Performed By: #### L AB113, REZ712, LAB17 ####Fashion Intern: REJI HAMILTON ([id number])[facility] (SBHLAB)[address] Urea nitrogen [Mass/Vol] 32 mg/dL High 9-23 [facility] Comment on above: Performed By: #### L AB113, [id number], LAB17 ####Fashion Intern: REJI BAUTISTACAIN ([id number])[facility] (SBHLAB)[address] Calcium.ionized [Moles/Vol]o n 10-13-2024 Calcium.ionized (Bld) [Moles/Vol] 4.3 mg/dL 4.30 - 5.20 mg/dL [facility] Interpretation and review of laboratory results Normal [facility] PH, IONIZED CALCIUM 7.41 7.31 - 7.46 [facility] Comprehensive metabolic 1998 panelon 10-13-2024 Albumin [Mass/Vol] 2.1 g/dL Low 3.4 - 4.8 g/dL [facility] ALP [Catalytic activity/Vol] 61 U/L 40 - 150 U/L [facility] ALT [Catalytic activity/Vol] 7 U/L NINF - 30 U/L [facility] Anion gap [Moles/Vol] 9 mmol/L 3 - 13 mmol/L [facility] AST [Catalytic activity/Vol] 18 U/L NINF - 34 U/L [facility] Bilirubin [Mass/Vol] 0.3 mg/dL NINF - 1.2 mg/dL [facility] Calcium [Mass/Vol] 8 mg/dL Low 8.8 - 10. 0 mg/dL [facility] Chloride [Moles/Vol] 107 mmol/L 98 - 10 7 mmol/L [facility] CO2 [Moles/Vol] 26 mmol/L 23 - 31 mmol/L [facility] Creatinine [Mass/Vol] 0.82 mg/dL 0.57 - 1.11 mg/dL [facility] GFR/1.73 sq M.predicted (S/P/Bld) [Vol rate/Area] 74.2 mL/min - PINF [facility] Glucose [Mass/Vol] 299 mg/dL High 82 - 115 mg/dL [facility] Interpretation and review of laboratory results Abnormal [facility] Potassium [Moles/Vol] 3.9 mmol/L 3.5 - 5.1 mmol/L [facility] Protein [Mass/Vol] 5.6 g/dL Low 6.4 - 8.3 g/dL [facility] Sodium [Moles/Vol] 142 mmol/L 136 - 145 mmol/L [facility] Urea nitrogen [Mass/Vol] 32 mg/dL High 9 - 23 mg/dL [facility] Laboratory - Chemistry and C hemistry - challengeon 10-13-2024 Glucose [Mass/Vol] 295 mg/dL High 70 - 100 mg/dL [facility] Glucose [Mass/Vol] 360 mg/dL High 70 - 100 mg/dL [facility] Glucose [Mass/Vol] 370 mg/dL High 70 - 100 mg/dL [facility] Magnesium [Mass/Vol] 1.9 mg/dL 1.6 - 2 .6 mg/dL [facility] Laboratory - Microbiology an d Antimicrobial susceptibilityOrdered By: Melody Nunez on 10-13-2024 Bacteria identified Cx Nom (Bld) Staphylococcus epidermidis Critically abnormal [facility] MAGNESIUMon 10-13-2024 Magnesium [Mass/Vol] 1.9 mg/dL Normal 1.6-2.6 [facility] Comment on above: Result Comment: ORDE R COMMENTS:Higher values can be expected in females during menses. Performed By: #### L AB113, [id number], LAB17 ####Fashion Intern: REJI HAMILTON ([phone])[facility] JAELYNBELLA (SBHLAB)[address] Magnesium [Mass/Vol]on 10-13 [facility] No Panel Informationon 10-13 Interpretation and review of laboratory results Abnormal [facility] Interpretation and review of laboratory results Abnormal [facility] Interpretation and review of laboratory results Abnormal [facility] Interpretation and review of laboratory results Normal [facility] PHOSPHORUSon 10-13-2024 Phosphate [Mass/Vol] 2.8 mg/dL Normal 2.3-4.7 [facility] Comment on above: Performed By: #### L AB113, [id number], LAB17 ####Fashion Intern: REJI HAMILTON ([phone])[facility] (HLAB)[address] [place] [address] [place] Phosphate [Moles/Vol]on 09-30 Phosphate [Mass/Vol] 2.8 mg/dL 2.3 - 4 .7 mg/dL [facility] Progress Noteon 10-13-2024 Progress Note Normal [facility] Progress Note Normal [facility] Progress Note Normal [facility] Progress Note Normal [facility] Progress Note Normal [facility] 30on 10-12-2024 30 Normal [facility] 30 Normal [facility] 30 Normal [facility] Bacteria identified Cx Nom ( Bld)on 10-12-2024 Interpretation and review of laboratory results Abnormal [facility] CALCIUM, IONIZEDon CALCIUM IONIZED 4.10 mg/dL Low 4.30-5.20 [facility] Comment on above: Performed By: #### L AB54 ####Fashion Intern: REJI HAMILTON ([phone])[facility] JAELYNALBUQUERQUE INDIAN DENTAL CLINICDarian ([facility])[address] PH, IONIZED CALCIUM 7.46 Normal 7.31-7.46 [facility] Comment on above: Performed By: #### L AB54 ####Fashion Intern: REJI HAMILTON ([phone])[facility] HOSPITALBELLA (SBHLAB)[address] [place] [address] CBC W Auto Differential pane l (Bld)on 10-12-2024 Basophils (Bld) [#/Vol] 0 10*3/uL 0.0 - 0.2 10*3/uL [facility] Basophils/100 WBC (Bld) 0.5 % 0.0 - 2.0 % [facility] Eosinophils (Bld) [#/Vol] 0.3 10*3/uL 0.0 - 0.5 10*3/uL [facility] Eosinophils/100 WBC (Bld) 7.7 % High 0.0 - 6.0 % [facility] [employer] Erythrocyte distribution width (RBC) [Ratio] 14.6 % 11.5 - 15.0 % [facility] Hematocrit (Bld) [Volume fraction] 33 % Low 35.0 - 47.0 % [facility] Hemoglobin (Bld) [Mass/Vol] 10.6 g/dL Low 11.7 - 16.0 g/dL [facility] [employer] Immature granulocytes (Bld) [#/Vol] 0 10*3/uL NINF - 0.1 10*3/uL [facility] [employer] Immature granulocytes/100 WBC (Bld) 0.2 % 0.0 - 2.0 % [facility] Interpretation and review of laboratory results Abnormal [facility] Lymphocytes (Bld) [#/Vol] 1.3 10*3/uL 1.0 - 4.3 10*3/uL [facility] [employer] Lymphocytes/100 WBC (Bld) 30.6 % 15.0 - 45.0 % [facility] MCH (RBC) [Entitic mass] 31.5 pg 26.0 - 34.0 pg [facility] [employer] MCHC (RBC) [Mass/Vol] 32.1 % 30.5 - 36.0 % [facility] MCV (RBC) [Entitic vol] 98.2 fL 77.0 - 99.0 fL [facility] [employer] Monocytes (Bld) [#/Vol] 0.4 10*3/uL 0.0 - 0.9 10*3/uL [facility] Monocytes/100 WBC (Bld) 9.4 % 5.0 - 13.0 % [facility] Neutrophils (Bld) [#/Vol] 2.1 10*3/uL 1.8 - 7.5 10*3/uL [facility] Neutrophils/100 WBC (Bld) 51.6 % 38.0 - 82.0 % [facility] Nucleated RBC/100 WBC (Bld) [Ratio] 0 % [facility] Platelet mean volume (Bld) [Entitic vol] 11.6 fL 9.0 - 12.7 fL [facility] Platelets (Bld) [#/Vol] 163 10*3/uL 140 - 440 10*3/uL [facility] RBC (Bld) [#/Vol] 3.36 10*6/uL Low 3.80 - 5.2 0 10*6/uL [facility] WBC (Bld) [#/Vol] 4.2 10*3/uL 3.6 - 10.7 10*3/uL [facility] CBC WITH AUTO DIFFERENTIALon 10-12-2024 Basophils (Bld) [#/Vol] 0.0 10*3/uL Normal 0.0-0.2 [facility] Comment on above: Performed By: #### L [id number] ####Fashion Intern: REJI HAMILTON ([phone])[facility] ([facility])[address] [place] [address] Basophils/100 WBC (Bld) 0.5 % Normal 0.0-2.0 [facility] Comment on above: Performed By: #### L [id number] ####Fashion Intern: REJI HAMILTON ([phone])[facility] ([facility])[address] Eosinophils (Bld) [#/Vol] 0.3 10*3/uL Normal 0.0-0.5 [facility] Comment on above: Performed By: #### L [id number] ####Fashion Intern: REJI HAMILTON ([phone])[facility] ([facility])[address] [place] [address] [place] Eosinophils/100 WBC (Bld) 7.7 % High 0.0-6.0 [facility] Comment on above: Performed By: #### L [id number] ####Fashion Intern: REJI BAUTISTACAIN ([phone])[facility] ([facility])[address] [place] [address] Erythrocyte distribution width (RBC) [Ratio] 14.6 % Normal 11.5-15.0 [facility] Comment on above: Performed By: #### L [id number] ####Fashion Intern: REJI BAUTISTACAIN ([phone])[facility] ([facility])[address] [place] [address] Hematocrit (Bld) [Volume fraction] 33.0 % Low 35.0-47.0 [facility] Comment on above: Performed By: #### L [id number] ####Fashion Intern: REJI HILLEDIN ([phone])[facility] ([facility])[address] [place] [address] Hemoglobin (Bld) [Mass/Vol] 10.6 g/dL Low 11.7-16.0 [facility] Comment on above: Performed By: #### L [id number] ####Fashion Intern: REJI BAUTISTACAIN ([phone])[facility] ([facility])[address] [place] [address] IMMATURE GRANS % 0.2 % Normal 0.0-2.0 [facility] Comment on above: Performed By: #### L [id number] ####Fashion Intern: REJI BAUTISTACAIN ([phone])[facility] ([facility])[address] [place] [address] IMMATURE GRANS ABSOLUTE 0.0 10*3/uL Normal <0.1 [facility] Comment on above: Performed By: #### L [id number] ####Fashion Intern: REJI BAUTISTACAIN ([phone])[facility] ([facility])[address] [place] [address] Lymphocytes (Bld) [#/Vol] 1.3 10*3/uL Normal 1.0-4.3 [facility] Comment on above: Performed By: #### L [id number] ####Fashion Intern: REJI HAMILTON ([id number])[facility] HOSPITALMelissa CHRISTYALBUQUERQUE INDIAN DENTAL CLINICDarian (SBHLAB)[address] Lymphocytes/100 WBC (Bld) 30.6 % Normal 15.0-45.0 [facility] Comment on above: Performed By: #### L [id number] ####Fashion Intern: REJI HAMILTON ([phone])[facility] HOSPITALMelissa BARBALBUQUERQUE INDIAN DENTAL CLINICN (SBHLAB)[address] MCH (RBC) [Entitic mass] 31.5 pg Normal 26.0-34.0 [facility] Comment on above: Performed By: #### L [id number] ####Fashion Intern: REJI BAUTISTACAIN ([phone])[facility] (SBHLAB)[address] MCHC 32.1 % Normal 30.5-36.0 [facility] Comment on above: Performed By: #### L [id number] ####Fashion Intern: REJI HAMILTON ([phone])[facility] HOSPITALMelissa [place] (SBHLAB)[address] [place] [address] MCV (RBC) [Entitic vol] 98.2 fL Normal 77.0-99.0 [facility] Comment on above: Performed By: #### L [id number] ####Fashion Intern: REJI HAMILTON ([phone])[facility] (SBHLAB)[address] [place] [address] Monocytes (Bld) [#/Vol] 0.4 10*3/uL Normal 0.0-0.9 [facility] Comment on above: Performed By: #### L [id number] ####Fashion Intern: REJI BAUTISTACAIN ([phone])[facility] (SBHLAB)[address] Monocytes/100 WBC (Bld) 9.4 % Normal 5.0-13.0 [facility] Comment on above: Performed By: #### L [id number] ####Fashion Intern: REJI HAMILTON ([phone])[facility] HOSPITALA [place] (SBHLAB)[address] NEUTROPHILS ABSOLUTE 2.1 10*3/uL Normal 1.8-7.5 [facility] Comment on above: Performed By: #### L [id number] ####Fashion Intern: REJI HAMILTON ([phone])[facility]ITALA [place] (SBHLAB)[address] Neutrophils/100 WBC (Bld) 51.6 % Normal 38.0-82.0 [facility] Comment on above: Performed By: #### L [id number] ####Fashion Intern: REJI BAUTISTACAIN ([id number])[facility]OS[facility]ITALA [place] (SBHLAB)[address] NRBC 0.0 /100 WBCs Normal 0.0-2.0 [facility] Comment on above: Performed By: #### L [id number] ####Fashion Intern: REJI HAMILTON ([id number])[facility]ITALA [place] (SBHLAB)[address] Platelet mean volume (Bld) [Entitic vol] 11.6 fL Normal 9.0-12.7 [facility] Comment on above: Performed By: #### L [id number] ####Fashion Intern: REJI HAMILTON ([phone])[facility]ITALA [place] (SBHLAB)[address] Platelets (Bld) [#/Vol] 163 10*3/uL Normal 140-440 [facility] Comment on above: Performed By: #### L [id number] ####Fashion Intern: REJI HAMILTON ([id number])[facility]ITALA [place] (SBHLAB)[address] RBC (Bld) [#/Vol] 3.36 10*6/uL Low 3.80-5.20 [facility] Comment on above: Performed By: #### L [id number] ####Fashion Intern: REJI HAMILTON ([phone])[facility]A [place] (SBHLAB)[address] WBC (Bld) [#/Vol] 4.2 10*3/uL Normal 3.6-10.7 [facility] Comment on above: Performed By: #### L [id number] ####Fashion Intern: REJI HAMILTON ([id number])[facility]ITALA [place] (SBHLAB)[address] COMPREHENSIVE METABOLIC PANE Fernando 10-12-2024 Albumin [Mass/Vol] 2.2 g/dL Low 3.4-4.8 [facility] Comment on above: Performed By: #### L AB103, [id number], LAB17 ####Fashion Intern: REJI HAMILTON ([phone])[facility]ITALA [place] (SBHLAB)[address] ALP [Catalytic activity/Vol] 61 U/L Normal 40-150 [facility] Comment on above: Performed By: #### L AB103, [id number], LAB17 ####Fashion Intern: REJI HAMILTON ([phone])[facility]A [place] (SBHLAB)[address] ALT [Catalytic activity/Vol] 7 U/L Normal <30 [facility] Comment on above: Performed By: #### L AB103, [id number], LAB17 ####Fashion Intern: REJI HAMILTON ([phone])[facility]A [place] (SBHLAB)[address] Anion gap [Moles/Vol] 10 mmol/L Normal 3-13 [facility] Comment on above: Performed By: #### L AB103, [id number], LAB17 ####Fashion Intern: REJI HAMILTON ([phone])[facility]A [place] (SBHLAB)[address] AST [Catalytic activity/Vol] 23 U/L Normal <34 [facility] Comment on above: Performed By: #### L AB103, [id number], LAB17 ####Fashion Intern: REJI HAMILTON ([id number])[facility]A [place] (SBHLAB)[address] Bilirubin [Mass/Vol] 0.4 mg/dL Normal <1.2 [facility] Comment on above: Performed By: #### L AB103, [id number], LAB17 ####Fashion Intern: REJI HAMILTON ([id number])[facility]ITALA BARBALBUQUERQUE INDIAN DENTAL CLINICN (SBHLAB)[address] Calcium [Mass/Vol] 8.0 mg/dL Low 8.8-10.0 [facility] Comment on above: Performed By: #### L AB103, [id number], LAB17 ####Fashion Intern: REJI HAMILTON ([phone])[facility]ITALA [facility] (SBHLAB)[address] Chloride [Moles/Vol] 106 mmol/L Normal 98-107 [facility] Comment on above: Performed By: #### L AB103, [id number], LAB17 ####Fashion Intern: REJI HAMILTON ([phone])[facility]ITALA [facility] (SBHLAB)[address] CO2 [Moles/Vol] 25 mmol/L Normal 23-31 [facility] Comment on above: Performed By: #### L AB103, [id number], LAB17 ####Fashion Intern: REJI HAMILTON ([id number])[facility]ITALA [place] (SBHLAB)[address] [place] [address] [place] Creatinine [Mass/Vol] 0.93 mg/dL Normal 0.57-1.11 [facility] Comment on above: Performed By: #### L AB103, [id number], LAB17 ####Fashion Intern: REJI HAMILTON ([phone])[facility]ITALA [facility] (SBHLAB)[address] [place] [address] [place] GLOMERULAR FILTRATION RATE ML/MIN/1.73 SQ M.PREDICTED 63.8 mL/min/1.73m*2 Normal >60.0 [facility] Comment on above: Result Comment: Calc ulation based on the Chronic Kidney Disease Epidemiology Collaboration (CKD-EPI) equation refit without adjustment for race Performed By: #### L AB103, [id number], LAB17 ####Fashion Intern: REJI HAMILTON ([phone])[facility] (SBHLAB)[address] Glucose [Mass/Vol] 254 mg/dL High 82-115 [facility] Comment on above: Performed By: #### L AB103, [id number], LAB17 ####Fashion Intern: REJI HAMILTON ([phone])[facility] (HLAB)[address] Potassium [Moles/Vol] 4.0 mmol/L Normal 3.5-5.1 [facility] Comment on above: Result Comment: [facility] potassium values may be up to 0.5 mmol/L lower than serum values. Performed By: #### Gómez AB103, [id number], LAB17 ####Fashion Intern: REJI HAMILTON ([phone])[facility] (HLAB)[address] Protein [Mass/Vol] 5.7 g/dL Low 6.4-8.3 [facility] Comment on above: Performed By: #### Gómez ABBridger, [id number], LAB17 ####Fashion Intern: REJI HAMILTON ([phone])[facility] (SBHLAB)[address] [place] [address] [place] Sodium [Moles/Vol] 141 mmol/L Normal 136-145 [facility] Comment on above: Performed By: #### L AB103, [id number], LAB17 ####Fashion Intern: REJI HAMILTON ([id number])[facility] (SBHLAB)[address] [place] [address] [place] Urea nitrogen [Mass/Vol] 33 mg/dL High 9-23 [facility] Comment on above: Performed By: #### L AB103, [id number], LAB17 ####Fashion Intern: REJI HAMILTON ([phone])[facility] K[facility]EM (SBHLAB)[address] [place] [address] Calcium.ionized [Moles/Vol]o n 10-12-2024 Calcium.ionized (Bld) [Moles/Vol] 4.1 mg/dL Low 4.30 - 5.20 mg/dL [facility] Interpretation and review of laboratory results Abnormal [facility] PH, IONIZED CALCIUM 7.46 7.31 - 7.46 [facility] Comprehensive metabolic 1998 panelon 10-12-2024 Albumin [Mass/Vol] 2.2 g/dL Low 3.4 - 4.8 g/dL [facility] ALP [Catalytic activity/Vol] 61 U/L 40 - 150 U/L [facility] ALT [Catalytic activity/Vol] 7 U/L NINF - 30 U/L [facility] Anion gap [Moles/Vol] 10 mmol/L 3 - 13 mmol/L [facility] AST [Catalytic activity/Vol] 23 U/L NINF - 34 U/L [facility] Bilirubin [Mass/Vol] 0.4 mg/dL NINF - 1.2 mg/dL [facility] Calcium [Mass/Vol] 8 mg/dL Low 8.8 - 10. 0 mg/dL [facility] Chloride [Moles/Vol] 106 mmol/L 98 - 10 7 mmol/L [facility] CO2 [Moles/Vol] 25 mmol/L 23 - 31 mmol/L [facility] Creatinine [Mass/Vol] 0.93 mg/dL 0.57 - 1.11 mg/dL [facility] GFR/1.73 sq M.predicted (S/P/Bld) [Vol rate/Area] 63.8 mL/min - PINF [facility] Glucose [Mass/Vol] 254 mg/dL High 82 - 115 mg/dL [facility] Interpretation and review of laboratory results Abnormal [facility] Potassium [Moles/Vol] 4 mmol/L 3.5 - 5.1 mmol/L [facility] Protein [Mass/Vol] 5.7 g/dL Low 6.4 - 8.3 g/dL [facility] Sodium [Moles/Vol] 141 mmol/L 136 - 145 mmol/L [facility] Urea nitrogen [Mass/Vol] 33 mg/dL High 9 - 23 mg/dL [facility] Laboratory - Chemistry and C hemistry - challengeon 10-12-2024 Glucose [Mass/Vol] 299 mg/dL High 70 - 100 mg/dL [facility] Glucose [Mass/Vol] 330 mg/dL High 70 - 100 mg/dL [facility] Glucose [Mass/Vol] 310 mg/dL High 70 - 100 mg/dL [facility] Glucose [Mass/Vol] 254 mg/dL High 70 - 100 mg/dL [facility] Magnesium [Mass/Vol] 1.9 mg/dL 1.6 - 2 .6 mg/dL [facility] Laboratory - Microbiology an d Antimicrobial susceptibilityon 10-12-2024 Bacteria identified Cx Nom (Bld) Staphylococcus hominis Critically abnormal [facility] MAGNESIUMon 10-12-2024 Magnesium [Mass/Vol] 1.9 mg/dL Normal 1.6-2.6 [facility] Comment on above: Result Comment: LANA Rangel COMMENTS:Higher values can be expected in females during menses. Performed By: #### L AB103, [id number], LAB17 ####Fashion Intern: REJI HAMILTON ([phone])[facility] ([facility])[address] Magnesium [Mass/Vol]on 10-12 [facility] No Panel Informationon 10-12 Interpretation and review of laboratory results Abnormal [facility] Interpretation and review of laboratory results Abnormal [facility] Interpretation and review of laboratory results Abnormal [facility] Interpretation and review of laboratory results Abnormal [facility] Interpretation and review of laboratory results Normal [facility] PHOSPHORUSon 10-12-2024 Phosphate [Mass/Vol] 2.7 mg/dL Normal 2.3-4.7 [facility] Comment on above: Performed By: #### L AB103, [id number], LAB17 ####Fashion Intern: REJI HAMILTON ([phone])[facility] (SBHLAB)[address] [place] [address] [place] Phosphate [Moles/Vol]on 09-30 Phosphate [Mass/Vol] 2.7 mg/dL 2.3 - 4 .7 mg/dL [facility] Progress Noteon 10-12-2024 Progress Note Normal [facility] Progress Note Normal [facility] Bacteria identified Cx Nom ( U)Ordered By: Shante Khoury on 10-11-2024 Interpretation and review of laboratory results Normal [facility] CALCIUM, IONIZEDon CALCIUM IONIZED 4.20 mg/dL Low 4.30-5.20 [facility] Comment on above: Performed By: #### L AB54 ####Fashion Intern: REJI HAMILTON ([phone])[facility] ([facility])[address] [place] [address] PH, IONIZED CALCIUM 7.40 Normal 7.31-7.46 [facility] Comment on above: Performed By: #### L AB54 ####Fashion Intern: REJI HAMILTON ([phone])[facility] ([facility])[address] [place] [address] CBC W Auto Differential pane l (Bld)on 10-11-2024 Basophils (Bld) [#/Vol] 0 10*3/uL 0.0 - 0.2 10*3/uL [facility] Basophils/100 WBC (Bld) 0.5 % 0.0 - 2.0 % [facility] Eosinophils (Bld) [#/Vol] 0.1 10*3/uL 0.0 - 0.5 10*3/uL [facility] Eosinophils/100 WBC (Bld) 1.4 % 0.0 - 6.0 % [facility] Erythrocyte distribution width (RBC) [Ratio] 14.6 % 11.5 - 15.0 % [facility] Hematocrit (Bld) [Volume fraction] 36.6 % 35.0 - 47.0 % [facility] Hemoglobin (Bld) [Mass/Vol] 11.8 g/dL 11.7 - 16.0 g/dL [facility] Immature granulocytes (Bld) [#/Vol] 0 10*3/uL NINF - 0.1 10*3/uL [facility] Immature granulocytes/100 WBC (Bld) 0.5 % 0.0 - 2.0 % [facility] Interpretation and review of laboratory results Abnormal [facility] Lymphocytes (Bld) [#/Vol] 0.6 10*3/uL Low 1.0 - 4.3 10*3/uL [facility] Lymphocytes/100 WBC (Bld) 14.2 % Low 15.0 - 45.0 % [facility] MCH (RBC) [Entitic mass] 31.7 pg 26.0 - 34.0 pg [facility] MCHC (RBC) [Mass/Vol] 32.2 % 30.5 - 36.0 % [facility] MCV (RBC) [Entitic vol] 98.4 fL 77.0 - 99.0 fL [facility] Monocytes (Bld) [#/Vol] 0.4 10*3/uL 0.0 - 0.9 10*3/uL [facility] Monocytes/100 WBC (Bld) 9.5 % 5.0 - 13.0 % [facility] Neutrophils (Bld) [#/Vol] 3.1 10*3/uL 1.8 - 7.5 10*3/uL [facility] Neutrophils/100 WBC (Bld) 73.9 % 38.0 - 82.0 % [facility] Nucleated RBC/100 WBC (Bld) [Ratio] 0 % [facility] Platelet mean volume (Bld) [Entitic vol] 11.6 fL 9.0 - 12.7 fL [facility] Platelets (Bld) [#/Vol] 153 10*3/uL 140 - 440 10*3/uL [facility] RBC (Bld) [#/Vol] 3.72 10*6/uL Low 3.80 - 5.2 0 10*6/uL [facility] WBC (Bld) [#/Vol] 4.2 10*3/uL 3.6 - 10.7 10*3/uL [facility] CBC WITH AUTO DIFFERENTIALon 10-11-2024 Basophils (Bld) [#/Vol] 0.0 10*3/uL Normal 0.0-0.2 [facility] Comment on above: Performed By: #### L [id number] ####Fashion Intern: REJI HAMILTON ([id number])[facility] (SBHLAB)[address] Basophils/100 WBC (Bld) 0.5 % Normal 0.0-2.0 [facility] Comment on above: Performed By: #### L [id number] ####Fashion Intern: REJI HAMILTON ([phone])[facility] (SBHLAB)[address] Eosinophils (Bld) [#/Vol] 0.1 10*3/uL Normal 0.0-0.5 [facility] Comment on above: Performed By: #### L [id number] ####Fashion Intern: REJI HAMILTON ([id number])[facility] (SBHLAB)[address] Eosinophils/100 WBC (Bld) 1.4 % Normal 0.0-6.0 [facility] Comment on above: Performed By: #### L [id number] ####Fashion Intern: REJI HAMILTON ([phone])[facility] (SBHLAB)[address] Erythrocyte distribution width (RBC) [Ratio] 14.6 % Normal 11.5-15.0 [facility] Comment on above: Performed By: #### L [id number] ####Fashion Intern: REJI HAMILTON ([id number])[facility] (SBHLAB)[address] [place] [address] Hematocrit (Bld) [Volume fraction] 36.6 % Normal 35.0-47.0 [facility] Comment on above: Performed By: #### L [id number] ####Fashion Intern: REJI HAMILTON ([id number])[facility] [place] (SBHLAB)[address] Hemoglobin (Bld) [Mass/Vol] 11.8 g/dL Normal 11.7-16.0 [facility] Comment on above: Performed By: #### L [id number] ####Fashion Intern: REJI HAMILTON ([id number])[facility] (SBHLAB)[address] IMMATURE GRANS % 0.5 % Normal 0.0-2.0 [facility] Comment on above: Performed By: #### L [id number] ####Fashion Intern: REJI HILLEfrenCAIN ([id number])[facility] [place] (SBHLAB)[address] IMMATURE GRANS ABSOLUTE 0.0 10*3/uL Normal <0.1 [facility] Comment on above: Performed By: #### L [id number] ####Fashion Intern: REJI BAUTISTACAIN ([id number])[facility] [place] (SBHLAB)[address] Lymphocytes (Bld) [#/Vol] 0.6 10*3/uL Low 1.0-4.3 [facility] Comment on above: Performed By: #### L [id number] ####Fashion Intern: REJI HAMILTON ([id number])[facility] (SBHLAB)[address] Lymphocytes/100 WBC (Bld) 14.2 % Low 15.0-45.0 [facility] Comment on above: Performed By: #### L [id number] ####Fashion Intern: REJI BAUTISTACAIN ([id number])[facility] [place] (SBHLAB)[address] MCH (RBC) [Entitic mass] 31.7 pg Normal 26.0-34.0 [facility] Comment on above: Performed By: #### L [id number] ####Fashion Intern: REJI BAUTISTACAIN ([id number])[facility] [place] (SBHLAB)[address] MCHC 32.2 % Normal 30.5-36.0 [facility] Comment on above: Performed By: #### L [id number] ####Fashion Intern: REJI HAMILTON ([id number])[facility] [place] (SBHLAB)[address] MCV (RBC) [Entitic vol] 98.4 fL Normal 77.0-99.0 [facility] Comment on above: Performed By: #### L [id number] ####Fashion Intern: REJI BAUTISTACAIN ([id number])[facility] [place] (SBHLAB)[address] Monocytes (Bld) [#/Vol] 0.4 10*3/uL Normal 0.0-0.9 [facility] Comment on above: Performed By: #### L [id number] ####Fashion Intern: REJI HILLEDIN ([id number])[facility] [place] (SBHLAB)[address] Monocytes/100 WBC (Bld) 9.5 % Normal 5.0-13.0 [facility] Comment on above: Performed By: #### L [id number] ####Fashion Intern: REJI BAUTISTACAIN ([id number])[facility] [place] (SBHLAB)[address] NEUTROPHILS ABSOLUTE 3.1 10*3/uL Normal 1.8-7.5 [facility] Comment on above: Performed By: #### L [id number] ####Fashion Intern: REJI BAUTISTACAIN ([id number])[facility] [place] (SBHLAB)[address] Neutrophils/100 WBC (Bld) 73.9 % Normal 38.0-82.0 [facility] Comment on above: Performed By: #### L [id number] ####Fashion Intern: REJI BAUTISTACAIN ([id number])[facility] [place] (SBHLAB)[address] NRBC 0.0 /100 WBCs Normal 0.0-2.0 [facility] Comment on above: Performed By: #### L [id number] ####Fashion Intern: REJI BAUTISTACAIN ([id number])[facility] [place] (SBHLAB)[address] Platelet mean volume (Bld) [Entitic vol] 11.6 fL Normal 9.0-12.7 [facility] Comment on above: Performed By: #### L [id number] ####Fashion Intern: REJI HAMILTON ([id number])IMELDAA JAELYNANNN (SBHLAB)[address] Platelets (Bld) [#/Vol] 153 10*3/uL Normal 140-440 [facility] Comment on above: Performed By: #### L [id number] ####Fashion Intern: REJI HAMILTON ([id number])[facility] [place] (SBHLAB)[address] RBC (Bld) [#/Vol] 3.72 10*6/uL Low 3.80-5.20 [facility] Comment on above: Performed By: #### L [id number] ####Fashion Intern: REJI HAMILTON ([id number])[facility] [place] (SBHLAB)[address] WBC (Bld) [#/Vol] 4.2 10*3/uL Normal 3.6-10.7 [facility] Comment on above: Performed By: #### L [id number] ####Fashion Intern: REJI HAMILTON ([id number])[facility] HOSPITALMelissa CHRISTYBELLA (SBHLAB)[address] COMPREHENSIVE METABOLIC PANE Fernando 10-11-2024 Albumin [Mass/Vol] 2.5 g/dL Low 3.4-4.8 [facility] Comment on above: Performed By: #### L AB113, [id number], LAB17 ####Fashion Intern: REJI HAMILTON ([id number])[facility] HOSPITALMelissa [place] (SBHLAB)[address] ALP [Catalytic activity/Vol] 68 U/L Normal 40-150 [facility] Comment on above: Performed By: #### L AB113, [id number], LAB17 ####Fashion Intern: REJI HAMILTON ([id number])[facility] (SBHLAB)[address] [place] [address] [place] ALT [Catalytic activity/Vol] U/L Normal <30 [facility] Comment on above: Performed By: #### L AB113, DID312, LAB17 ####Fashion Intern: REJI HAMILTON ([id number])[facility] (SBHLAB)[address] Anion gap [Moles/Vol] 15 mmol/L High 3-13 [facility] Comment on above: Performed By: #### L AB113, [id number], LAB17 ####Fashion Intern: REJI HAMILTON ([id number])[facility] HOSPITALMelissa CHRISTYALBUQUERQUE INDIAN DENTAL CLINICN (SBHLAB)[address] AST [Catalytic activity/Vol] 23 U/L Normal <34 [facility] Comment on above: Performed By: #### L ABLeighann, GSO507, LAB17 ####Fashion Intern: REIJ HAMILTON ([id number])[facility] HOSPITALMelissa SERNA (SBHLAB)[address] Bilirubin [Mass/Vol] 0.6 mg/dL Normal <1.2 [facility] Comment on above: Performed By: #### L AB113, GNM768, LAB17 ####Fashion Intern: REJI HAMILTON ([id number])[facility] HOS[facility]ITALMelissa [place] (SBHLAB)[address] Calcium [Mass/Vol] 8.2 mg/dL Low 8.8-10.0 [facility] Comment on above: Performed By: #### L AB113, EVZ621, LAB17 ####Fashion Intern: REJI HAMILTON ([id number])[facility] HOSPITALMelissa CHRISTYALBUQUERQUE INDIAN DENTAL CLINICN (SBHLAB)[address] [place] [address] [place] Chloride [Moles/Vol] 104 mmol/L Normal 98-107 [facility] Comment on above: Performed By: #### L AB113, KTE160, LAB17 ####Fashion Intern: REJI HAMILTON ([phone])[facility] BERTHADarian (SBHLAB)[address] [place] [address] [place] CO2 [Moles/Vol] 24 mmol/L Normal 23-31 [facility] Comment on above: Performed By: #### L AB113, [id number], LAB17 ####Fashion Intern: REJI HAMILTON ([id number])[facility]OS[facility]ITALMelissa CHRISTYALBUQUERQUE INDIAN DENTAL CLINICDarian (SBHLAB)[address] Creatinine [Mass/Vol] 1.22 mg/dL High 0.57-1.11 [facility] Comment on above: Performed By: #### L AB113, [id number], LAB17 ####Fashion Intern: REJI HAMILTON ([id number])[facility] HOSPITALMelissa [facility]YCOB[facility] (HLAB)[address] GLOMERULAR FILTRATION RATE ML/MIN/1.73 SQ M.PREDICTED 46.1 mL/min/1.73m*2 Low >60.0 [facility] Comment on above: Result Comment: Calc ulation based on the Chronic Kidney Disease Epidemiology Collaboration (CKD-EPI) equation refit without adjustment for race Performed By: #### L AB113, [id number], LAB17 ####Fashion Intern: REJI HAMILTON ([id number])[facility] HOSPITALMelissa CH[facility]YCOBALT [facility] (HLAB)[address] Glucose [Mass/Vol] 412 mg/dL High 82-115 [facility] Comment on above: Performed By: #### L AB113, [id number], LAB17 ####Fashion Intern: REJI HAMILTON ([id number])[facility] HOSPITALMelissa [facility]YCOB[facility] (SBHLAB)[address] [place] [address] [place] Potassium [Moles/Vol] 4.0 mmol/L Normal 3.5-5.1 [facility] Comment on above: Result Comment: [facility] potassium values may be up to 0.5 mmol/L lower than serum values. Performed By: #### L AB113, NIA871, LAB17 ####Fashion Intern: REJI HAMILTON ([id number])[facility] HOSPITALMelissa [facility]YCOB[facility] (SBHLAB)[address] [place] [address] [place] Protein [Mass/Vol] 6.2 g/dL Low 6.4-8.3 [facility] Comment on above: Performed By: #### L AB113, EJV456, LAB17 ####Fashion Intern: REJI CARBALLOCER ([phone])[facility] (SBHLAB)[address] Sodium [Moles/Vol] 143 mmol/L Normal 136-145 [facility] Comment on above: Performed By: #### L AB113, [id number], LAB17 ####Fashion Intern: REJI HILLEfrenCAIN ([id number])[facility] (SBHLAB)[address] Urea nitrogen [Mass/Vol] 30 mg/dL High 9-23 [facility] Comment on above: Performed By: #### L AB113, PWL142, LAB17 ####Fashion Intern: REJI HILLEDIN ([phone])[facility] (SBHLAB)[address] Calcium.ionized [Moles/Vol]O rdered By: Darrick Gonzalez on 10-11-2024 Calcium.ionized (Bld) [Moles/Vol] 4.2 mg/dL Low 4.30 - 5.20 mg/dL [facility] Interpretation and review of laboratory results Abnormal [facility] PH, IONIZED CALCIUM 7.4 7.31 - 7.46 [facility] Comprehensive metabolic 1998 panelon 10-11-2024 Albumin [Mass/Vol] 2.5 g/dL Low 3.4 - 4.8 g/dL [facility] ALP [Catalytic activity/Vol] 68 U/L 40 - 150 U/L [facility] ALT [Catalytic activity/Vol] U/L NINF - 30 U/L [facility] Anion gap [Moles/Vol] 15 mmol/L High 3 - 13 mmol/L [facility] AST [Catalytic activity/Vol] 23 U/L NINF - 34 U/L [facility] Bilirubin [Mass/Vol] 0.6 mg/dL NINF - 1.2 mg/dL [facility] Calcium [Mass/Vol] 8.2 mg/dL Low 8.8 - 10. 0 mg/dL [facility] Chloride [Moles/Vol] 104 mmol/L 98 - 10 7 mmol/L [facility] CO2 [Moles/Vol] 24 mmol/L 23 - 31 mmol/L [facility] Creatinine [Mass/Vol] 1.22 mg/dL High 0.57 - 1.11 mg/dL [facility] GFR/1.73 sq M.predicted (S/P/Bld) [Vol rate/Area] 46.1 mL/min Low - PINF [facility] Glucose [Mass/Vol] 412 mg/dL High 82 - 115 mg/dL [facility] Interpretation and review of laboratory results Abnormal [facility] Potassium [Moles/Vol] 4 mmol/L 3.5 - 5.1 mmol/L [facility] Protein [Mass/Vol] 6.2 g/dL Low 6.4 - 8.3 g/dL [facility] Sodium [Moles/Vol] 143 mmol/L 136 - 145 mmol/L [facility] Urea nitrogen [Mass/Vol] 30 mg/dL High 9 - 23 mg/dL [facility] Laboratory - Chemistry and C hemistry - challengeon 10-11-2024 Glucose [Mass/Vol] 344 mg/dL High 70 - 100 mg/dL [facility] Glucose [Mass/Vol] 400 mg/dL High 70 - 100 mg/dL [facility] Glucose [Mass/Vol] 383 mg/dL High 70 - 100 mg/dL [facility] Glucose [Mass/Vol] 349 mg/dL High 70 - 100 mg/dL [facility] Magnesium [Mass/Vol] 1.9 mg/dL 1.6 - 2 .6 mg/dL [facility] Laboratory - Microbiology an d Antimicrobial susceptibilityOrdered By: Shante Khoury on 10-11-2024 Bacteria identified Cx Nom (U) No growth (<1,000 CFU/mL) [facility] MAGNESIUMon 10-11-2024 Magnesium [Mass/Vol] 1.9 mg/dL Normal 1.6-2.6 [facility] Comment on above: Result Comment: LANA Rangel COMMENTS:Higher values can be expected in females during menses. Performed By: #### L AB113, [id number], LAB17 ####Fashion Intern: REJI HAMILTON ([phone])[facility] HOSPITALMelissa SERNA (SBHLAB)[address] [place] [address] [place] Magnesium [Mass/Vol]on 10-11 [facility] No Panel Informationon 10-11 Interpretation and review of laboratory results Abnormal [facility] Interpretation and review of laboratory results Abnormal [facility] Interpretation and review of laboratory results Abnormal [facility] Interpretation and review of laboratory results Abnormal [facility] Interpretation and review of laboratory results Normal [facility] PHOSPHORUSon 10-11-2024 Phosphate [Mass/Vol] 3.0 mg/dL Normal 2.3-4.7 [facility] Comment on above: Performed By: #### L AB113, [id number], LAB17 ####Fashion Intern: REJI HAMILTON ([id number])[facility] JAELYNALBUQUERQUE INDIAN DENTAL CLINICDarian ([facility]INGAB)[address] [place] [address] [place] Phosphate [Moles/Vol]on 09-30 Phosphate [Mass/Vol] 3 mg/dL 2.3 - 4 .7 mg/dL [facility] Progress Noteon 10-11-2024 Progress Note Normal [facility] Progress Note Transferred out of [place] [facility]. Will follow Normal [facility] Progress Note Normal [facility] 30on 10-10-2024 30 Normal [facility] 30 Normal [facility] [id number] 10-10-2024 [id number] Normal [facility] CALCIUM, IONIZEDon CALCIUM IONIZED 4.20 mg/dL Low 4.30-5.20 [facility] Comment on above: Performed By: #### L AB54 ####Fashion Intern: REJI HAMILTON ([phone])[facility] JAELYNBELLA (SBHLAB)[address] [place] [address] [place] PH, IONIZED CALCIUM 7.36 Normal 7.31-7.46 [facility] Comment on above: Performed By: #### L AB54 ####Fashion Intern: REJI HAMILTON ([id number])[facility] JAELYNALBUQUERQUE INDIAN DENTAL CLINICDarian (SBHLAB)[address] [place] [address] [place] CBC W Auto Differential pane l (Bld)Ordered By: Digna Hernandez on 10-10-2024 Basophils (Bld) [#/Vol] 0 10*3/uL 0.0 - 0.2 10*3/uL [facility] Basophils/100 WBC (Bld) 0.4 % 0.0 - 2.0 % [facility] Eosinophils (Bld) [#/Vol] 0 10*3/uL 0.0 - 0.5 10*3/uL [facility] Eosinophils/100 WBC (Bld) 0.2 % 0.0 - 6.0 % [facility] Erythrocyte distribution width (RBC) [Ratio] 14.7 % 11.5 - 15.0 % [facility] Hematocrit (Bld) [Volume fraction] 38.5 % 35.0 - 47.0 % [facility] Hemoglobin (Bld) [Mass/Vol] 12 g/dL 11.7 - 16.0 g/dL [facility] Immature granulocytes (Bld) [#/Vol] 0 10*3/uL NINF - 0.1 10*3/uL [facility] Immature granulocytes/100 WBC (Bld) 0.6 % 0.0 - 2.0 % [facility] Interpretation and review of laboratory results Abnormal [facility] Lymphocytes (Bld) [#/Vol] 0.8 10*3/uL Low 1.0 - 4.3 10*3/uL [facility] Lymphocytes/100 WBC (Bld) 15.3 % 15.0 - 45.0 % [facility] MCH (RBC) [Entitic mass] 31.2 pg 26.0 - 34.0 pg [facility] MCHC (RBC) [Mass/Vol] 31.2 % 30.5 - 36.0 % [facility] MCV (RBC) [Entitic vol] 100 fL High 77.0 - 99.0 fL [facility] Monocytes (Bld) [#/Vol] 0.5 10*3/uL 0.0 - 0.9 10*3/uL [facility] Monocytes/100 WBC (Bld) 9.4 % 5.0 - 13.0 % [facility] Neutrophils (Bld) [#/Vol] 3.6 10*3/uL 1.8 - 7.5 10*3/uL [facility] Neutrophils/100 WBC (Bld) 74.1 % 38.0 - 82.0 % [facility] Nucleated RBC/100 WBC (Bld) [Ratio] 0 % [facility] Platelet mean volume (Bld) [Entitic vol] 10.9 fL 9.0 - 12.7 fL [facility] Platelets (Bld) [#/Vol] 158 10*3/uL 140 - 440 10*3/uL [facility] RBC (Bld) [#/Vol] 3.85 10*6/uL 3.80 - 5.2 0 10*6/uL [facility] WBC (Bld) [#/Vol] 4.9 10*3/uL 3.6 - 10.7 10*3/uL [facility] CBC WITH AUTO DIFFERENTIALon 10-10-2024 Basophils (Bld) [#/Vol] 0.0 10*3/uL Normal 0.0-0.2 [facility] Comment on above: Performed By: #### L [id number] ####Fashion Intern: REJI HAMILTON ([id number])[facility] [place] (SBHLAB)[address] Basophils/100 WBC (Bld) 0.4 % Normal 0.0-2.0 [facility] Comment on above: Performed By: #### L [id number] ####Fashion Intern: REJI HAMILTON ([id number])[facility] [place] (SBHLAB)[address] Eosinophils (Bld) [#/Vol] 0.0 10*3/uL Normal 0.0-0.5 [facility] Comment on above: Performed By: #### L [id number] ####Fashion Intern: REJI HAMILTON ([id number])[facility] [place] (SBHLAB)[address] [place] [address] [place] Eosinophils/100 WBC (Bld) 0.2 % Normal 0.0-6.0 [facility] Comment on above: Performed By: #### L [id number] ####Fashion Intern: REJI HAMILTON ([id number])[facility] [place] (SBHLAB)[address] Erythrocyte distribution width (RBC) [Ratio] 14.7 % Normal 11.5-15.0 [facility] Comment on above: Performed By: #### L [id number] ####Fashion Intern: REJI HAMILTON ([phone])[facility]ITALA BARBALBUQUERQUE INDI[facility] DENTAL CLINICN (SBAB)[address] Hematocrit (Bld) [Volume fraction] 38.5 % Normal 35.0-47.0 [facility] Comment on above: Performed By: #### L [id number] ####Fashion Intern: REJI HAMILTON ([id number])[facility]A [place] ([facility])[address] Hemoglobin (Bld) [Mass/Vol] 12.0 g/dL Normal 11.7-16.0 [facility] Comment on above: Performed By: #### L [id number] ####Fashion Intern: REJI HAMILTON ([phone])[facility] BARBALBUQUERQUE INDIAN DENTAL CLINICN ([facility])[address] IMMATURE GRANS % 0.6 % Normal 0.0-2.0 [facility] Comment on above: Performed By: #### L [id number] ####Fashion Intern: REJI HAMILTON ([phone])[facility]A [facility] ([facility])[address] IMMATURE GRANS ABSOLUTE 0.0 10*3/uL Normal <0.1 [facility] Comment on above: Performed By: #### L [id number] ####Fashion Intern: REJI HAMILTON ([phone])[facility]A BARBALBUQUERQUE [facility] CLINICN (SBAB)[address] Lymphocytes (Bld) [#/Vol] 0.8 10*3/uL Low 1.0-4.3 [facility] Comment on above: Performed By: #### L [id number] ####Fashion Intern: REJI HAMILTON ([id number])[facility] BARBALBUQUERQUE INDI[facility]ENTAL CLINICN (SBAB)[address] Lymphocytes/100 WBC (Bld) 15.3 % Normal 15.0-45.0 [facility] Comment on above: Performed By: #### L [id number] ####Fashion Intern: REJI HAMILTON ([phone])[facility]A [place] (SBHLAB)[address] MCH (RBC) [Entitic mass] 31.2 pg Normal 26.0-34.0 [facility] Comment on above: Performed By: #### L [id number] ####Fashion Intern: REJI HAMILTON ([phone])[facility]A [place] (SBHLAB)[address] MCHC 31.2 % Normal 30.5-36.0 [facility] Comment on above: Performed By: #### L [id number] ####Fashion Intern: REJI HAMILTON ([id number])[facility]A [facility] (SBHLAB)[address] MCV (RBC) [Entitic vol] 100.0 fL High 77.0-99.0 [facility] Comment on above: Performed By: #### L [id number] ####Fashion Intern: REJI HAMILTON ([id number])[facility]A [facility]BALBUQUER[facility]ICN (SBHLAB)[address] Monocytes (Bld) [#/Vol] 0.5 10*3/uL Normal 0.0-0.9 [facility] Comment on above: Performed By: #### L [id number] ####Fashion Intern: REJI HAMILTON ([id number])[facility]A BARBALBUQUERQUE [facility]INICN (SBHLAB)[address] Monocytes/100 WBC (Bld) 9.4 % Normal 5.0-13.0 [facility] Comment on above: Performed By: #### L [id number] ####Fashion Intern: REJI HAMILTON ([id number])[facility]A [facility] (SBHLAB)[address] [place] [address] [place] NEUTROPHILS ABSOLUTE 3.6 10*3/uL Normal 1.8-7.5 [facility] Comment on above: Performed By: #### L [id number] ####Fashion Intern: REJI HAMILTON ([id number])[facility]A [place] (SBHLAB)[address] Neutrophils/100 WBC (Bld) 74.1 % Normal 38.0-82.0 [facility] Comment on above: Performed By: #### L [id number] ####Fashion Intern: REJI HAMILTON ([phone])[facility] [place] (SBHLAB)[address] NRBC 0.0 /100 WBCs Normal 0.0-2.0 [facility] Comment on above: Performed By: #### L [id number] ####Fashion Intern: REJI HAMILTON ([id number])[facility] [place] (SBHLAB)[address] Platelet mean volume (Bld) [Entitic vol] 10.9 fL Normal 9.0-12.7 [facility] Comment on above: Performed By: #### L [id number] ####Fashion Intern: REJI HAMILTON ([id number])[facility] [place] (SBHLAB)[address] [place] [address] [place] Platelets (Bld) [#/Vol] 158 10*3/uL Normal 140-440 [facility] Comment on above: Performed By: #### L [id number] ####Fashion Intern: REJI HAMILTON ([id number])[facility] [place] (SB[facility])[address] [place] [address] [place] RBC (Bld) [#/Vol] 3.85 10*6/uL Normal 3.80-5.20 [facility] Comment on above: Performed By: #### L [id number] ####Fashion Intern: REJI HAMILTON ([id number])[facility] [place] (SB[facility])[address] [place] [address] [place] WBC (Bld) [#/Vol] 4.9 10*3/uL Normal 3.6-10.7 [facility] Comment on above: Performed By: #### L [id number] ####Fashion Intern: REJI HAMILTON ([id number])[facility]ITAL[facility] [place] (SBHLAB)[address] COMPLETE URINALYSIS WITH REF TARIQ TO CULTUREon 10-10-2024 BACTERIA (#/HPF) IN URINE Few Abnormal Negative [facility] Comment on above: Performed By: #### L [id number] ####Fashion Intern: REJI HAMILTON ([id number])[facility] [place] (SBHLAB)[address] [place] [address]#### [id number] ####Fashion Intern: MERLE RODRIGUES ([phone])[facility])[address] [place] [address] BILIRUBIN, TOTAL PRESENCE IN URINE Negative Normal Negative [facility] Comment on above: Performed By: #### L [id number] ####Fashion Intern: REJI HAMILTON ([id number])[facility]ITALMelissa [place] (SBHLAB)[address] [place] [address]#### [id number] ####Fashion Intern: MERLE RODRIGUES ([id number])[facility] [facility] ([facility])[address] [place] [address] Clarity (U) Turbid Abnormal [facility] Comment on above: Performed By: #### L [id number] ####Fashion Intern: REJI HAMILTON ([phone])[facility] HOSPITALMelissa BARBAL[facility] (SB[facility])[address] [place] [address]#### [id number] ####Fashion Intern: MERLE RODRIGUES ([phone])[facility] ([facility])[address] [place] [address] Color (U) Yellow Normal Lt. Yellow [facility] Comment on above: Performed By: #### L [id number] ####Fashion Intern: REJI HAMILTON ([phone])[facility] (SBHLAB)[address]#### [id number] ####Fashion Intern: MERLE RODRIGUES ([phone])[facility] (SAC[facility])[address] [place] [address] Glucose (U) [Mass/Vol] 200 mg/dL Abnormal Nancy l (<70) [facility] Comment on above: Performed By: #### L [id number] ####Fashion Intern: REJI HAMILTON ([phone])[facility] (SB[facility])[address] [place] [address]#### [id number] ####Fashion Intern: MERLE RODRIGUES ([phone])[facility] ([facility])[address] [place] [address] HEMOGLOBIN PRESENCE IN URINE 1.0 mg/dL Abnormal Negative [facility] Comment on above: Performed By: #### L [id number] ####Fashion Intern: REJI HAMILTON ([phone])[facility] (SB[facility])[address] [place] [address]#### [id number] ####Fashion Intern: MERLE RODRIGUES ([phone])[facility] ([facility])[address] [place] [address] Ketones Ql (U) Negative Normal Negative [facility] Comment on above: Performed By: #### L [id number] ####Fashion Intern: REJI HAMILTON ([phone])[facility] ([facility])[address]#### [id number] ####Fashion Intern: MERLE RODRIGUES ([phone])[facility] ([facility])[address] [place] [address] LEUKOCYTE ESTERASE PRESENCE IN URINE BY TEST STRIP 250 Jimenez/uL Abnormal Negative [facility] Comment on above: Performed By: #### L [id number] ####Fashion Intern: REJI HAMILTON ([phone])[facility] (SBHLAB)[address] [place] [address] [place]#### [id number] ####Fashion Intern: MERLE RODRIGUES ([phone])[facility])[address] [place] [address] NITRITE PRESENCE IN URINE Negative Normal Negative [facility] Comment on above: Performed By: #### L [id number] ####Fashion Intern: REJI HAMILTON ([phone])[facility] (SBHLAB)[address] [place] [address]#### [id number] ####Fashion Intern: MERLE RODRIGUES ([phone])[facility] ([facility])[address] [place] [address] pH (U) 6.0 [pH] Normal 5.0-8.0 [facility] Comment on above: Performed By: #### L [id number] ####Fashion Intern: REJI HAMILTON ([phone])[facility] ([facility])[address] [place] [address]#### [id number] ####Fashion Intern: MERLE RODRIGUES ([phone])[facility] ([facility])[address] [place] [address] Protein (U) [Mass/Vol] 100 mg/dL Abnormal Negative [facility] Comment on above: Performed By: #### L [id number] ####Fashion Intern: REJI HAMILTON ([phone])[facility] (SBHL[facility])[address] [place] [address]#### [id number] ####Fashion Intern: MERLE RODRIGUES ([phone])[facility])[address] [place] [address] RBC (#/HPF) IN URINE SEDIMENT 26-50 Abnormal 0-2 [facility] Comment on above: Performed By: #### L [id number] ####Fashion Intern: REJI HAMILTON ([phone])[facility] (SBHLAB)[address] [place] [address]#### [id number] ####Fashion Intern: MERLE [phone])[facility] ([facility]AC[facility])[address] [place] [address] Specific gravity (U) [Rel density] 1.021 Normal 1.005-1.030 [facility] Comment on above: Result Comment: LANA Rangel COMMENTS:This specimen has been reflexed to urine culture. Performed By: #### L [id number] ####Fashion Intern: REJI HAMILTON ([phone])[facility] (SBHLAB)[address] [place] [address]#### [id number] ####Fashion Intern: MERLE RODRIGUES ([phone])[facility])[address] [place] [address] SQUAMOUS EPITHELIAL CELLS (#/HPF) IN URINE SEDIMENT 3-5 Normal 3-5 [facility] Comment on above: Performed By: #### L [id number] ####Fashion Intern: REJI HAMILTON ([phone])[facility] (SB[facility])[address] [place] [address]#### [id number] ####Fashion Intern: MERLE RODRIGUES ([phone])[facility] ([facility])[address] [place] [address] UROBILINOGEN (MG/DL) IN URINE Normal Normal Normal (0-1) [facility] Comment on above: Performed By: #### L [id number] ####Fashion Intern: REJI HAMILTON ([phone])[facility] (SBHL[facility])[address] [place] [address]#### [id number] ####Fashion Intern: MERLE RODRIGUES ([phone])[facility])[address] [place] [address] WBC (LEUKOCYTE) (#/HPF) IN URINE SEDIMENT 26-50 Abnormal 0-5 [facility] Comment on above: Performed By: #### L [id number] ####Fashion Intern: REJI HAMILTON ([phone])[facility] (SBHL[facility])[address]#### [id number] ####Fashion Intern: MERLE RODRIGUES ([phone])[facility] ([facility])[address] [place] [address] WBC (LEUKOCYTE) CLUMPS (#/HPF) IN URINE SEDIMENT Few Abnormal Negative [facility] Comment on above: Performed By: #### L [id number] ####Fashion Intern: REJI HAMILTON ([phone])[facility]ITALA [place] (SBHLAB)[address]#### [id number] ####Fashion Intern: MERLE RODRIGUES ([phone])[facility] ([facility])[address] [place] [address] COMPREHENSIVE METABOLIC PANE Fernando 10-10-2024 Albumin [Mass/Vol] 2.5 g/dL Low 3.4-4.8 [facility] Comment on above: Performed By: #### Gómez [id number], LAB17, [id number] ####Fashion Intern: REJI HAMILTON ([phone])[facility]ITALA [place] (SBHLAB)[address] ALP [Catalytic activity/Vol] 70 U/L Normal 40-150 [facility] Comment on above: Performed By: #### L [id number], LAB17, [id number] ####Fashion Intern: REJI HAMILTON ([phone])[facility]A [place] (SBHLAB)[address] ALT [Catalytic activity/Vol] 6 U/L Normal <30 [facility] Comment on above: Performed By: #### L AB103, LAB17, [id number] ####Fashion Intern: REJI HAMILTON ([phone])[facility]A [place] (SBHLAB)[address] Anion gap [Moles/Vol] 13 mmol/L Normal 3-13 [facility] Comment on above: Performed By: #### L AB103, LAB17, [id number] ####Fashion Intern: REJI HAMILTON ([phone])[facility]A [place] (SB[facility])[address] AST [Catalytic activity/Vol] 22 U/L Normal <34 [facility] Comment on above: Performed By: #### L AB103, LAB17, [id number] ####Fashion Intern: REJI HAMILTON ([phone])[facility] [place] (SBHLAB)[address] Bilirubin [Mass/Vol] 0.7 mg/dL Normal <1.2 [facility] Comment on above: Performed By: #### L AB103, LAB17, [id number] ####Fashion Intern: REJI HAMILTON ([phone])[facility] [place] (SBHLAB)[address] Calcium [Mass/Vol] 8.3 mg/dL Low 8.8-10.0 [facility] Comment on above: Performed By: #### Gómez LEVINE, LAB17, [id number] ####Fashion Intern: REJI HAMILTON ([phone])[facility]OS[facility]ITALMelissa [place] (SBHLAB)[address] Chloride [Moles/Vol] 106 mmol/L Normal 98-107 [facility] Comment on above: Performed By: #### L AB103, LAB17, [id number] ####Fashion Intern: REJI HAMILTON ([phone])[facility]OS[facility]ITALMelissa STON[place] (SBHLAB)[address] [place] [address] [place] CO2 [Moles/Vol] 25 mmol/L Normal 23-31 [facility] Comment on above: Performed By: #### L AB103, LAB17, [id number] ####Fashion Intern: REJI HAMILTON ([phone])[facility] [place] (SB[facility]AB)[address] [place] [address] [place] Creatinine [Mass/Vol] 1.10 mg/dL Normal 0.57-1.11 [facility] Comment on above: Performed By: #### L AB103, LAB17, [id number] ####Fashion Intern: REJI HAMILTON ([phone])[facility]ITALA BARBCOB[facility] (SBHLAB)[address] [place] [address] [place] GLOMERULAR FILTRATION RATE ML/MIN/1.73 SQ M.PREDICTED 52.2 mL/min/1.73m*2 Low >60.0 [facility] Comment on above: Result Comment: Calc ulation based on the Chronic Kidney Disease Epidemiology Collaboration (CKD-EPI) equation refit without adjustment for race Performed By: #### L AB103, LAB17, [id number] ####Fashion Intern: REJI HAMILTON ([phone])[facility] (SBHL[facility])[address] Glucose [Mass/Vol] 290 mg/dL High 82-115 [facility] Comment on above: Performed By: #### Gómez AB103, LAB17, [id number] ####Fashion Intern: REJI HAMILTON ([phone])[facility] (SBHLAB)[address] Potassium [Moles/Vol] 4.1 mmol/L Normal 3.5-5.1 [facility] Comment on above: Result Comment: [facility] potassium values may be up to 0.5 mmol/L lower than serum values. Performed By: #### Gómez LEVINE, LAB17, [id number] ####Fashion Intern: REJI HAMILTON ([phone])[facility] (SB[facility])[address] Protein [Mass/Vol] 6.0 g/dL Low 6.4-8.3 [facility] Comment on above: Performed By: #### L AB103, LAB17, [id number] ####Fashion Intern: REJI HAMILTON ([phone])[facility] (SBHLAB)[address] [place] [address] [place] Sodium [Moles/Vol] 144 mmol/L Normal 136-145 [facility] Comment on above: Performed By: #### L AB103, LAB17, [id number] ####Fashion Intern: REJI HAMILTON ([phone])[facility] (SBHL[facility])[address] Urea nitrogen [Mass/Vol] 28 mg/dL High 9-23 [facility] Comment on above: Performed By: #### L AB103, LAB17, [id number] ####Fashion Intern: REJI HAMILTON ([phone])[facility] KAREEM (SBHLAB)[address] Calcium.ionized [Moles/Vol]O rdered By: Torres Bhatia on 10-10-2024 Calcium.ionized (Bld) [Moles/Vol] 4.2 mg/dL Low 4.30 - 5.20 mg/dL [facility] Interpretation and review of laboratory results Abnormal [facility] PH, IONIZED CALCIUM 7.36 7.31 - 7.46 [facility] Comprehensive metabolic 1998 panelon 10-10-2024 Albumin [Mass/Vol] 2.5 g/dL Low 3.4 - 4.8 g/dL [facility] ALP [Catalytic activity/Vol] 70 U/L 40 - 150 U/L [facility] ALT [Catalytic activity/Vol] 6 U/L NINF - 30 U/L [facility] Anion gap [Moles/Vol] 13 mmol/L 3 - 13 mmol/L [facility] AST [Catalytic activity/Vol] 22 U/L NINF - 34 U/L [facility] Bilirubin [Mass/Vol] 0.7 mg/dL [facility] - 1.[facility] mg/dL [facility] Calcium [Mass/Vol] 8.3 mg/dL Low 8.8 - 10. 0 mg/dL [facility] Chloride [Moles/Vol] 106 mmol/L 98 - 10 7 mmol/L [facility] CO2 [Moles/Vol] 25 mmol/L 23 - 31 mmol/L [facility] Creatinine [Mass/Vol] 1.1 mg/dL 0.57 - 1.11 mg/dL [facility] GFR/1.73 sq M.predicted (S/P/Bld) [Vol rate/Area] 52.2 mL/min Low - PINF [facility] Glucose [Mass/Vol] 290 mg/dL High 82 - 115 mg/dL [facility] Interpretation and review of laboratory results Abnormal [facility] Potassium [Moles/Vol] 4.1 mmol/L 3.5 - 5.1 mmol/L [facility] Protein [Mass/Vol] 6 g/dL Low 6.4 - 8.3 g/dL [facility] Sodium [Moles/Vol] 144 mmol/L 136 - 145 mmol/L [facility] Urea nitrogen [Mass/Vol] 28 mg/dL High 9 - 23 mg/dL [facility] Consulton 10-10-2024 Consult Normal [facility] LACTIC ACID WITH REFLEXon Lactate [Moles/Vol] 2.6 mmol/L High 0.5-2.2 [facility] Comment on above: Performed By: #### L [id number] ####Fashion Intern: REJI HAMILTON ([phone])[facility] ([facility])[address] [place] [address] Lactate [Moles/Vol] 2.4 mmol/L High 0.5-2.2 [facility] Comment on above: Performed By: #### L [id number] ####Fashion Intern: REJI HAMILTON ([phone])[facility] ([facility])[address] [place] [address] Lactate [Moles/Vol] 3.1 mmol/L High 0.5-2.2 [facility] Comment on above: Performed By: #### L [id number] ####Fashion Intern: REJI HAMILTON ([phone])[facility] ([facility])[address] [place] [address] Lactate [Moles/Vol] 3.4 mmol/L High 0.5-2.2 [facility] Comment on above: Performed By: #### L [id number] ####Fashion Intern: REJI HAMILTON ([phone])[facility] ([facility])[address] [place] [address] Laboratory - Chemistry and C hemistry - challengeon 10-10-2024 Glucose [Mass/Vol] 289 mg/dL High 70 - 100 mg/dL [facility] Glucose [Mass/Vol] 232 mg/dL High 70 - 100 mg/dL [facility] Lactate [Moles/Vol] 2.6 mmol/L High 0.5 - 2. 2 mmol/L [facility] Glucose [Mass/Vol] 227 mg/dL High 70 - 100 mg/dL [facility] Lactate [Moles/Vol] 2.4 mmol/L High 0.5 - 2. 2 mmol/L [facility] Glucose [Mass/Vol] 226 mg/dL High 70 - 100 mg/dL [facility] Lactate [Moles/Vol] 3.1 mmol/L High 0.5 - 2. 2 mmol/L [facility] Magnesium [Mass/Vol] 1.9 mg/dL 1.6 - 2 .6 mg/dL [facility] Glucose [Mass/Vol] 273 mg/dL High 70 - 100 mg/dL [facility] Lactate [Moles/Vol] 3.4 mmol/L High 0.5 - 2. 2 mmol/L [facility] Laboratory - Drug toxicology on 10-10-2024 Vancomycin trough [Mass/Vol] 13.7 ug/mL [facility] MAGNESIUMon 10-10-2024 Magnesium [Mass/Vol] 1.9 mg/dL Normal 1.6-2.6 [facility] Comment on above: Result Comment: LANA Rangel COMMENTS:Higher values can be expected in females during menses. Performed By: #### L AB103, LAB17, [id number] ####Fashion Intern: REJI HAMILTON ([phone])[facility] (SB[facility])[address] [place] [address] Magnesium [Mass/Vol]on 10-10 [facility] No Panel Informationon 10-10 Interpretation and review of laboratory results Abnormal [facility] Interpretation and review of laboratory results Abnormal [facility] Interpretation and review of laboratory results Abnormal [facility] Interpretation and review of laboratory results Abnormal [facility] Interpretation and review of laboratory results Abnormal [facility] Interpretation and review of laboratory results Abnormal [facility] Interpretation and review of laboratory results Abnormal [facility] Interpretation and review of laboratory results Normal [facility] Interpretation and review of laboratory results Abnormal [facility] Interpretation and review of laboratory results Abnormal [facility] No Panel InformationOrdered By: Charis Fraustokike on 10-10-2024 Coagulase-negative Staphylococcus Detected Abnormal Not Detected [facility] Interpretation and review of laboratory results Abnormal [facility] PHOSPHORUSon 10-10-2024 Phosphate [Mass/Vol] 3.7 mg/dL Normal 2.3-4.7 [facility] Comment on above: Performed By: #### L AB103, LAB17, [id number] ####Fashion Intern: REJI HAMILTON ([phone])[facility]ITALMelissa [facility]YCOB[facility] ([facility])[address] [place] [address] Phosphate [Moles/Vol]on 09-30 Phosphate [Mass/Vol] 3.7 mg/dL 2.3 - 4 .7 mg/dL [facility] Progress Noteon 10-10-2024 Progress Note Normal [facility] Progress Note Normal [facility] Progress Note Normal [facility] Progress Note Normal [facility] Progress Note Normal [facility] URINE CULTUREon 10-10-2024 Bacteria identified Cx Nom (U) Normal [facility] Comment on above: Performed By: #### L [id number] ####Fashion Intern: REJI HAMILTON ([phone])[facility]OS[facility]ITALMelissa [facility]YCO[facility] ([facility])[address] [place] [address]#### [id number] ####Fashion Intern: MERLE RODRIGUES ([phone])[facility] (SACLAB[address] Urinalysis complete panel (U )on 10-10-2024 Bacteria LM.HPF (Urine sed) [#/Area] Few Abnormal Negative /HPF [facility] Bilirubin Ql (U) Negative Negative mg/dL [facility] Clarity (U) Turbid Abnormal Clear [facility] Color (U) Yellow Lt. Yellow [facility] Epithelial cells.squamous LM.HPF (Urine sed) [#/Area] 3-5 [facility] Glucose Ql (U) 200 mg/dL Abnormal Normal (<70) [facility] Hemoglobin Ql (U) 1.0 mg/dL Abnormal Negative [facility] Interpretation and review of laboratory results Abnormal [facility] Ketones (U) [Mass/Vol] Negative Negat iris mg/dL [facility] Leukocyte clumps LM.HPF (Urine sed) [#/Area] Few Abnormal Negative /HPF [facility] Leukocyte esterase Test strip Ql (U) 250 Abnormal Negative Jimenez/uL [facility] Nitrite Ql (U) Negative Negative [facility] pH (U) 6.0 [pH] 5.0 - 8.0 pH [facility] Protein (U) [Mass/Vol] 100 mg/dL Abnormal Negative [facility] RBC LM.HPF (Urine sed) [#/Area] 26-50 Abnormal [facility] Specific gravity (U) [Rel density] 1.021 1.005 - 1.030 [facility] Urobilinogen (U) [Mass/Vol] Normal Normal (0-1) mg/dL [facility] WBC LM.HPF (Urine sed) [#/Area] 26-50 Abnormal [facility] VANCOMYCIN, AUC TIMED DOSING on 10-10-2024 VANCOMYCIN, AUC 13.7 ug/mL Normal [facility] Comment on above: Result Comment: LANA Rangel COMMENTS:Please draw random level at least >2 hours after the end of the last vancomycin infusion, or 30-minutes before next infusion.Toxicity is seen at concentrations >80-100 ug/mLTherapeutic (Peak) range: 20-40Therapeutic (Trough) range: 5-10 Performed By: #### L [id number] ####Fashion Intern: REJI HAMILTON ([phone])[facility] ([facility])[address] [place] [address] Vancomycin trough [Mass/Vol] on 10-10-2024 [facility] [id number] 10-09-2024 [id number] Normal [facility] AMMONIAon 10-09-2024 Ammonia (P) [Moles/Vol] 22 umol/L Normal 18-72 [facility] Comment on above: Performed By: #### L [id number] ####Fashion Intern: REJI HAMILTON ([phone])[facility] ([facility])[address] [place] [address] BLOOD CULTUREon 10-09-2024 Bacteria identified Cx Nom (Bld) Normal [facility] Comment on above: Performed By: #### L [id number], [id number] ####Fashion Intern: MERLE RODRIGUES ([phone])[facility] ([facility])[address] [place] [address] Bacteria identified Cx Nom (Bld) Normal [facility] Comment on above: Performed By: #### L [id number] ####Fashion Intern: MERLE RODRIGUES ([phone])[facility] ([facility])[address] [place] [address] BLOOD CULTURE IDENTIFICATION - AEROBICon 10-09-2024 BLOOD CULTURE IDENTIFICATION - AEROBIC Normal [facility] Comment on above: Performed By: #### L [id number], [id number] ####Fashion Intern: MERLE RODRIGUES ([phone])[facility] ([facility])[address] [place] [address] BLOOD GAS, VENOUSon 10-10-19 25 AMOUNT OF OXYGEN Normal [facility] Comment on above: Result Comment: LANA Rangel COMMENTS:Assessment of oxygenation is best done with an arterial blood gas determination. Reference ranges for pO2, bicarbonate, and base excess are for mixed venous blood. Specimens drawn from a peripheral vein will often have higher values. Performed By: #### L AB79 ####Fashion Intern: REJI HAMILTON ([phone])[facility] ([facility])[address] [place] [address] Base excess Calc (BldV) [Moles/Vol] 1.4 mmol/L Normal -3.0-3.0 [facility] Comment on above: Performed By: #### L AB79 ####Fashion Intern: REJI HAMILTON ([phone])[facility] ([facility])[address] [place] [address] CO2 [Moles/Vol] 31.9 mmol/L High 23.0-30.0 [facility] Comment on above: Performed By: #### L AB79 ####Fashion Intern: REJI HAMILTON ([phone])[facility] ([facility])[address] [place] [address] [place] HCO3 (Bld) [Moles/Vol] 29.9 mmol/L Normal 21.0-30.0 [facility] Comment on above: Performed By: #### L AB79 ####Fashion Intern: REJI HAMILTON ([phone])[facility] ([facility])[address] Hemoglobin (Bld) [Mass/Vol] 13.9 g/dL Normal Screen only [facility] Comment on above: Performed By: #### L AB79 ####Fashion Intern: REJI HAMILTON ([phone])[facility] ([facility])[address] OXYGEN (MM HG) IN VENOUS BLOOD 32.6 mm Hg Normal [facility] Comment on above: Performed By: #### L AB79 ####Fashion Intern: REJI HAMILTON ([phone])[facility] ([facility])[address] OXYGEN SATURATION (%) IN VENOUS BLOOD 58.1 % Normal [facility] Comment on above: Performed By: #### L AB79 ####Fashion Intern: REJI HAMILTON ([phone])[facility] ([facility])[address] PCO2, DAVID 65.3 mm Hg High 35.0-53.0 [facility] Comment on above: Performed By: #### L AB79 ####Fashion Intern: REJI HAMILTON ([phone])[facility] [facility] [place] [address] [place] PH VENOUS 7.278 Low 7.320-7.420 [facility] Comment on above: Performed By: #### L [id number] ####Fashion Intern: REJI HAMILTON ([phone])[facility] ([facility])[address] [place] [address] SOURCE OF OXYGEN Nasal Cannula (LPM) Normal [facility] Comment on above: Performed By: #### L [id number] ####Fashion Intern: REJI HAMILTON ([phone])[facility] ([facility])[address] [place] [address] CBC W Auto Differential pane l (Bld)on 10-09-2024 Basophils (Bld) [#/Vol] 0 10*3/uL 0.0 - 0.2 10*3/uL [facility] Basophils/100 WBC (Bld) 0.3 % 0.0 - 2.0 % [facility] Eosinophils (Bld) [#/Vol] 0 10*3/uL 0.0 - 0.5 10*3/uL [facility] Eosinophils/100 WBC (Bld) 0.3 % 0.0 - 6.0 % [facility] Erythrocyte distribution width (RBC) [Ratio] 14.6 % 11.5 - 15.0 % [facility] Hematocrit (Bld) [Volume fraction] 40.4 % 35.0 - 47.0 % [facility] Hemoglobin (Bld) [Mass/Vol] 12.9 g/dL 11.7 - 16.0 g/dL [facility] Immature granulocytes (Bld) [#/Vol] 0 10*3/uL NINF - 0.1 10*3/uL [facility] Immature granulocytes/100 WBC (Bld) 0.4 % 0.0 - 2.0 % [facility] Lymphocytes (Bld) [#/Vol] 1 10*3/uL 1.0 - 4.3 10*3/uL [facility] Lymphocytes/100 WBC (Bld) 13 % Low 15.0 - 45.0 % [facility] MCH (RBC) [Entitic mass] 31.8 pg 26.0 - 34.0 pg [facility] MCHC (RBC) [Mass/Vol] 31.9 % 30.5 - 36.0 % [facility] MCV (RBC) [Entitic vol] 99.5 fL High 77.0 - 99.0 fL [facility] Monocytes (Bld) [#/Vol] 0.5 10*3/uL 0.0 - 0.9 10*3/uL [facility] Monocytes/100 WBC (Bld) 6.4 % 5.0 - 13.0 % [facility] Neutrophils (Bld) [#/Vol] 6 10*3/uL 1.8 - 7.5 10*3/uL [facility] Neutrophils/100 WBC (Bld) 79.6 % 38.0 - 82.0 % [facility] Nucleated RBC/100 WBC (Bld) [Ratio] 0 % [facility] Platelet mean volume (Bld) [Entitic vol] 11.7 fL 9.0 - 12.7 fL [facility] Platelets (Bld) [#/Vol] 192 10*3/uL 140 - 440 10*3/uL [facility] RBC (Bld) [#/Vol] 4.06 10*6/uL 3.80 - 5.2 0 10*6/uL [facility] WBC (Bld) [#/Vol] 7.6 10*3/uL 3.6 - 10.7 10*3/uL [facility] CBC WITH AUTO DIFFERENTIALon 10-09-2024 Basophils (Bld) [#/Vol] 0.0 10*3/uL Normal 0.0-0.2 [facility] Comment on above: Performed By: #### L [id number] ####Fashion Intern: REJI HAMILTON ([phone])[facility] ([facility])[address] Basophils/100 WBC (Bld) 0.3 % Normal 0.0-2.0 [facility] Comment on above: Performed By: #### L [id number] ####Fashion Intern: REJI HAMILTON ([id number])[facility] ([facility])[address] Eosinophils (Bld) [#/Vol] 0.0 10*3/uL Normal 0.0-0.5 [facility] Comment on above: Performed By: #### L [id number] ####Fashion Intern: REJI HAMILTON ([phone])[facility] [place] ([facility])[address] [place] [address] [place] Eosinophils/100 WBC (Bld) 0.3 % Normal 0.0-6.0 [facility] Comment on above: Performed By: #### L [id number] ####Fashion Intern: REJI HAMILTON ([phone])[facility] [place] ([facility])[address] Erythrocyte distribution width (RBC) [Ratio] 14.6 % Normal 11.5-15.0 [facility] Comment on above: Performed By: #### L [id number] ####Fashion Intern: REJI HAMILTON ([phone])[facility] [place] ([facility])[address] Hematocrit (Bld) [Volume fraction] 40.4 % Normal 35.0-47.0 [facility] Comment on above: Performed By: #### L [id number] ####Fashion Intern: REJI HAMILTON ([phone])[facility] ([facility])[address] Hemoglobin (Bld) [Mass/Vol] 12.9 g/dL Normal 11.7-16.0 [facility] Comment on above: Performed By: #### L [id number] ####Fashion Intern: REJI HAMILTON ([phone])[facility] ([facility])[address] IMMATURE GRANS % 0.4 % Normal 0.0-2.0 [facility] Comment on above: Performed By: #### L [id number] ####Fashion Intern: REJI HAMILTON ([phone])[facility] ([facility])[address] IMMATURE GRANS ABSOLUTE 0.0 10*3/uL Normal <0.1 [facility] Comment on above: Performed By: #### L [id number] ####Fashion Intern: REJI HAMILTON ([phone])[facility] [place] ([facility])[address] Lymphocytes (Bld) [#/Vol] 1.0 10*3/uL Normal 1.0-4.3 [facility] Comment on above: Performed By: #### L [id number] ####Fashion Intern: REJI HAMILTON ([phone])[facility] [place] ([facility])[address] Lymphocytes/100 WBC (Bld) 13.0 % Low 15.0-45.0 [facility] Comment on above: Performed By: #### L [id number] ####Fashion Intern: REJI HAMILTON ([phone])[facility]ITALMelissa [place] ([facility])[address] MCH (RBC) [Entitic mass] 31.8 pg Normal 26.0-34.0 [facility] Comment on above: Performed By: #### L [id number] ####Fashion Intern: REJI HAMILTON ([phone])[facility]ITALMelissa [facility] ([facility])[address] MCHC 31.9 % Normal 30.5-36.0 [facility] Comment on above: Performed By: #### L [id number] ####Fashion Intern: REJI HAMILTON ([phone])[facility] ([facility])[address] MCV (RBC) [Entitic vol] 99.5 fL High 77.0-99.0 [facility] Comment on above: Performed By: #### L [id number] ####Fashion Intern: REJI HAMILTON ([phone])[facility]ITALMelissa [facility] ([facility])[address] [place] [address] Monocytes (Bld) [#/Vol] 0.5 10*3/uL Normal 0.0-0.9 [facility] Comment on above: Performed By: #### L [id number] ####Fashion Intern: REJI HAMILTON ([id number])[facility] [place] ([facility])[address] Monocytes/100 WBC (Bld) 6.4 % Normal 5.0-13.0 [facility] Comment on above: Performed By: #### L [id number] ####Fashion Intern: REJI HAMILTON ([phone])[facility] ([facility])[address] NEUTROPHILS ABSOLUTE 6.0 10*3/uL Normal 1.8-7.5 [facility] Comment on above: Performed By: #### L [id number] ####Fashion Intern: REJI HAMILTON ([phone])[facility] [place] ([facility])[address] Neutrophils/100 WBC (Bld) 79.6 % Normal 38.0-82.0 [facility] Comment on above: Performed By: #### L [id number] ####Fashion Intern: REJI HAMILTON ([phone])[facility] [place] ([facility])[address] NRBC 0.0 /100 WBCs Normal 0.0-2.0 [facility] Comment on above: Performed By: #### L [id number] ####Fashion Intern: REJI HAMILTON ([phone])[facility] [place] ([facility])[address] Platelet mean volume (Bld) [Entitic vol] 11.7 fL Normal 9.0-12.7 [facility] Comment on above: Performed By: #### L [id number] ####Fashion Intern: REJI HAMILTON ([id number])[facility] [place] ([facility])[address] Platelets (Bld) [#/Vol] 192 10*3/uL Normal 140-440 [facility] Comment on above: Performed By: #### L [id number] ####Fashion Intern: REJI HAMILTON ([id number])[facility] [place] ([facility])[address] RBC (Bld) [#/Vol] 4.06 10*6/uL Normal 3.80-5.20 [facility] Comment on above: Performed By: #### L [id number] ####Fashion Intern: REJI HAMILTON ([phone])[facility] [place] ([facility])[address] WBC (Bld) [#/Vol] 7.6 10*3/uL Normal 3.6-10.7 [facility] Comment on above: Performed By: #### L [id number] ####Fashion Intern: REJI HAMILTON ([phone])[facility]ITALMelissa [place] ([facility])[address] COMPREHENSIVE METABOLIC PANE Fernando 10-09-2024 Albumin [Mass/Vol] 2.8 g/dL Low 3.4-4.8 [facility] Comment on above: Performed By: #### L [id number], LAB17, [id number] ####Fashion Intern: REJI HAMILTON ([phone])[facility]ITALMelissa STONEDarian (SBHLAB)[address] ALP [Catalytic activity/Vol] 86 U/L Normal 40-150 [facility] Comment on above: Performed By: #### Gómez [id number], LAB17, [id number] ####Fashion Intern: REJI HAMILTON ([phone])[facility]OS[facility]ITALMelissa [facility] ([facility])[address] ALT [Catalytic activity/Vol] U/L Normal <30 [facility] Comment on above: Performed By: #### L [id number], LAB17, [id number] ####Fashion Intern: REJI HAMILTON ([id number])[facility]ITALMelissa [facility] ([facility])[address] Anion gap [Moles/Vol] 14 mmol/L High 3-13 [facility] Comment on above: Performed By: #### L [id number], LAB17, [id number] ####Fashion Intern: REJI HAMILTON ([id number])[facility] ([facility])[address] AST [Catalytic activity/Vol] 21 U/L Normal <34 [facility] Comment on above: Performed By: #### L [id number], LAB17, [id number] ####Fashion Intern: REJI HAMILTON ([phone])[facility]ITALMelissa [place] (SBHLAB)[address] Bilirubin [Mass/Vol] 0.7 mg/dL Normal <1.2 [facility] Comment on above: Performed By: #### L [id number], LAB17, [id number] ####Fashion Intern: REJI HAMILTON ([phone])[facility]ITALMelissa [facility] ([facility])[address] Calcium [Mass/Vol] 8.7 mg/dL Low 8.8-10.0 [facility] Comment on above: Performed By: #### L [id number], LAB17, [id number] ####Fashion Intern: REJI HAMILTON ([phone])[facility]ITALMelissa [facility] ([facility])[address] Chloride [Moles/Vol] 103 mmol/L Normal 98-107 [facility] Comment on above: Performed By: #### Gómez [id number], LAB17, [id number] ####Fashion Intern: REJI HAMILTON ([phone])[facility]ITALMelissa [place] ([facility])[address] CO2 [Moles/Vol] 27 mmol/L Normal 23-31 [facility] Comment on above: Performed By: #### L [id number], LAB17, [id number] ####Fashion Intern: REJI HAMILTON ([phone])[facility]ITALMelissa [facility] ([facility])[address] Creatinine [Mass/Vol] 1.15 mg/dL High 0.57-1.11 [facility] Comment on above: Performed By: #### L [id number], LAB17, [id number] ####Fashion Intern: REJI HAMILTON ([phone])[facility]ITALMelissa [facility] ([facility])[address] GLOMERULAR FILTRATION RATE ML/MIN/1.73 SQ M.PREDICTED 49.5 mL/min/1.73m*2 Low >60.0 [facility] Comment on above: Result Comment: Calc ulation based on the Chronic Kidney Disease Epidemiology Collaboration (CKD-EPI) equation refit without adjustment for race Performed By: #### L [id number], LAB17, [id number] ####Fashion Intern: REJI HAMILTON ([phone])[facility]ITALMelissa [facility] ([facility])[address] Glucose [Mass/Vol] 291 mg/dL High 82-115 [facility] Comment on above: Performed By: #### L [id number], LAB17, SPE231 ####Fashion Intern: REJI HAMILTON ([phone])[facility] ([facility])[address] Potassium [Moles/Vol] 4.2 mmol/L Normal 3.5-5.1 [facility] Comment on above: Result Comment: [facility] potassium values may be up to 0.5 mmol/L lower than serum values. Performed By: #### L [id number], LAB17, [id number] ####Fashion Intern: REJI HAMILTON ([phone])[facility] ([facility])[address] Protein [Mass/Vol] 6.7 g/dL Normal 6.4-8.3 [facility] Comment on above: Performed By: #### Gómez [id number], LAB17, ADH201 ####Fashion Intern: REJI HAMILTON ([phone])[facility] ([facility])[address] Sodium [Moles/Vol] 144 mmol/L Normal 136-145 [facility] Comment on above: Performed By: #### L [id number], LAB17, [id number] ####Fashion Intern: REJI HAMILTON ([phone])[facility] ([facility])[address] Urea nitrogen [Mass/Vol] 29 mg/dL High 9-23 [facility] Comment on above: Performed By: #### L [id number], LAB17, [id number] ####Fashion Intern: REJI HAMILTON ([phone])[facility] K[facility]EM (SBHLAB)[address] [place] [address] CT Abdomen and Pelvis WO and W contrast Anselmo 10-09-2024 [facility] Radiology Study observation (narrative) [facility] CT Abdomen and Pelvis WO and W contrast IVOrdered By: Carlos Martinez on 10-09-2024 [facility] Work Phone: CT CHEST ABDOMEN PELVIS WO C ONTRASTon 10-09-2024 CT CHEST ABDOMEN PELVIS WO CONTRAST Normal [facility] CT HEAD WO IV CONTRASTon CT HEAD WO IV CONTRAST Normal [facility] CT Head WO contraston 2024 [facility] Radiology Study observation (narrative) [facility] CT Head WO contrastOrdered B y: Sy Akins on 10-09-2024 [facility] Work Phone: CT LOWER EXTREMITY RIGHT WO IV CONTRASTon 10-09-2024 CT LOWER EXTREMITY RIGHT WO IV CONTRAST Normal [facility] CT Lower extremity - right W O contraston 10-09-2024 [facility] Radiology Study observation (narrative) [facility] Comprehensive metabolic 1998 panelon 10-09-2024 Albumin [Mass/Vol] 2.8 g/dL Low 3.4 - 4.8 g/dL [facility] ALP [Catalytic activity/Vol] 86 U/L 40 - 150 U/L [facility] ALT [Catalytic activity/Vol] U/L NINF - 30 U/L [facility] Anion gap [Moles/Vol] 14 mmol/L High 3 - 13 mmol/L [facility] AST [Catalytic activity/Vol] 21 U/L NINF - 34 U/L [facility] Bilirubin [Mass/Vol] 0.7 mg/dL NINF - 1.2 mg/dL [facility] Calcium [Mass/Vol] 8.7 mg/dL Low 8.8 - 10. 0 mg/dL [facility] Chloride [Moles/Vol] 103 mmol/L 98 - 10 7 mmol/L [facility] CO2 [Moles/Vol] 27 mmol/L 23 - 31 mmol/L [facility] Creatinine [Mass/Vol] 1.15 mg/dL High 0.57 - 1.11 mg/dL [facility] GFR/1.73 sq M.predicted (S/P/Bld) [Vol rate/Area] 49.5 mL/min Low - PINF [facility] Glucose [Mass/Vol] 291 mg/dL High 82 - 115 mg/dL [facility] Interpretation and review of laboratory results Abnormal [facility] Potassium [Moles/Vol] 4.2 mmol/L 3.5 - 5.1 mmol/L [facility] Protein [Mass/Vol] 6.7 g/dL 6.4 - 8.3 g/dL [facility] Sodium [Moles/Vol] 144 mmol/L 136 - 145 mmol/L [facility] Urea nitrogen [Mass/Vol] 29 mg/dL High 9 - 23 mg/dL [facility] Consulton 10-09-2024 Consult Normal [facility] ED Nursing Noteon 10-09-2024 ED Nursing Note Per ICU, pt to go to CT before coming up. CT called. CT unsure when pt would be next. Normal [facility] ED Nursing Note Report called. Normal [facility] ED Nursing Note Per Dr Mercedes, sta rt antibiotics. ICU aware pt still needs blood cx. Normal [facility] ED Nursing Note Multiple attempts ma de for IV access. Able to place 22g in right chest area and 20g ultra sound IV in R AC. PA and Dr Mercedes notified pt will need a poss central line for better access. Unable to draw blood cx at this time. Normal [facility] ED Nursing Note Pt here to the ER vi a EMS for altered metal status that started today. Pt has hx of dementia. Pt not answering questions. Pt is moaning and tense. Pt looks at you when calling her name. Per EMS pt was started on antibiotic for UTI. Normal [facility] ED Provider Noteon ED Provider Note Normal [facility] HEMOGLOBIN A1Con 10-09-2024 Glucose [Mass/Vol] 194 mg/dL Normal [facility] Comment on above: Result Comment: ORDE R COMMENTS:If not done within the last 3 [id number] values of 5.7-6.4 percent indicate an increased risk for developing diabetes mellitus. HbA1c values greater than or equal to 6.5 percent are diagnostic of diabetes mellitus. For diagnosis of diabetes in individuals without unequivocal hyperglycemia, results should be confirmed by repeat testing. Performed By: #### L [id number] ####Fashion Intern: REJI HAMILTON ([phone])[facility] ([facility])[address] HEMOGLOBIN A1C 8.4 %HbA1C High <5.7 [facility] Comment on above: Result Comment: Norm al less than 5.7%Prediabetes 5.7% to 6.4%Diabetes 6.5% or higher--HgbA1C levels may not be accurate in patients who have renal disease, received recent blood transfusions, are anemic, or who have dyshemoglobinemia. Performed By: #### L [id number] ####Fashion Intern: REJI HAMILTON ([phone])[facility] ([facility])[address] [place] [address] HIGH SENSITIVITY TROPONIN, S ERIAL BASELINEon 10-09-2024 TROPONIN HS SERIAL BASELINE 18 ng/L High <=14 [facility] Comment on above: Result Comment: In i ndividuals presenting with symptoms > 2h, a baseline troponin <= 5 ng/L suggests acutecardiac injury is unlikely and further serial testing is generally not indicated. Performed By: #### L [id number], LAB17, [id number] ####Fashion Intern: REJI HAMILTON ([phone])[facility] ([facility])[address] [place] [address] HIGH SENSITIVITY TROPONIN, S ERIAL, SECOND TESTon 10-09-2024 2H TROPONIN HS (SERIAL 2ND TROPONIN) 22 ng/L High <=14 [facility] Comment on above: Result Comment: 2h t roponin (2nd troponin) samples collected between 1h 40 min and 2h and 20 min of the baseline collection time can be utilized to interpret delta troponins as per [facility] algorithms. Samples collected outside this timeframe need to be interpreted clinically.Rising or falling troponin delta between 2 ??? 15 ng/L as compared to baseline value requires a 3rd serial troponin Performed By: #### L [id number] ####Fashion Intern: REJI HAMILTON ([phone])[facility] ([facility])[address] HIGH SENSITIVITY TROPONIN, Cynthia HUTSON, THIRD TESTon 10-09-2024 4H TROPONIN HS (SERIAL 3RD TROPONIN) 20 ng/L High <=14 [facility] Comment on above: Result Comment: Risi ng or falling troponin delta below 2 ng/L as compared to 2h troponin value suggeststhat acute cardiac injury is unlikely. Performed By: #### L [id number] ####Fashion Intern: REJI HAMILTON ([phone])[facility] ([facility])[address] LACTIC ACID WITH REFLEXon Lactate [Moles/Vol] 5.2 mmol/L Critically high 0.5-2.2 [facility] Comment on above: Performed By: #### L [id number] ####Fashion Intern: REJI HAMILTON ([phone])[facility] ([facility])[address] [place] [address] Laboratory - Chemistry and C hemistry - challengeon 10-09-2024 Glucose [Mass/Vol] 299 mg/dL High 70 - 100 mg/dL [facility] Average glucose Estimated from glycated hemoglobin (Bld) [Mass/Vol] 194 mg/dL [facility] Ammonia (P) [Moles/Vol] 22 umol/L 18 - 72 umol/L [facility] Glucose [Mass/Vol] 266 mg/dL High 70 - 100 mg/dL [facility] Laboratory - Chemistry and C hemistry - challengeOrdered By: Dina Baires on 10-09-2024 Lactate [Moles/Vol] 5.2 mmol/L Critically high 0.5 - 2.2 mmol/L [facility] Laboratory - Chemistry and C hemistry - challengeOrdered By: Susan Herzog on 10-09-2024 Base excess Calc (BldV) [Moles/Vol] 1.4 mmol/L -3.0 - 3.0 mmol/L [facility] CO2 (BldV) [Partial pressure] 65.3 mm[Hg] High [facility] CO2 [Moles/Vol] 31.9 mmol/L High 23.0 - 30.0 mmol/L [facility] HCO3 (Bld) [Moles/Vol] 29.9 mmol/L 21.0 - 30.0 mmol/L [facility] Oxygen (BldV) [Partial pressure] 32.6 mm[Hg] mm Hg [facility] pH (BldV) 7.278 [pH] Low 7.320 - 7.420 [facility] Laboratory - Hematology and Cell countson 10-09-2024 HbA1c (Bld) [Mass fraction] 8.4 % High [facility] Laboratory - Hematology and Cell countsOrdered By: Susan Herzog on 10-09-2024 Hemoglobin (Bld) [Mass/Vol] 13.9 g/dL 12.0 - 16.0 g/dl [facility] NT PRO BNPon 10-09-2024 Natriuretic peptide B (Bld) [Mass/Vol] 427 pg/mL Normal <450 [facility] Comment on above: Performed By: #### L [id number], LAB17, [id number] ####Fashion Intern: REJI HAMILTON ([phone])[facility] ([facility])[address] [place] [address] Natriuretic peptide B [Mass/ Vol]on 10-09-2024 Interpretation and review of laboratory results Normal [facility] Natriuretic peptide B (Bld) [Mass/Vol] 427 pg/mL NINF - 450 pg/mL [facility] No Panel Informationon 10-09 4h Troponin HS (Serial 3rd Troponin) 20 ng/L High NINF - 14 ng/L [facility] Interpretation and review of laboratory results Abnormal [facility] Interpretation and review of laboratory results Abnormal [facility] 2h Troponin HS (Serial 2nd Troponin) 22 ng/L High NINF - 14 ng/L [facility] Interpretation and review of laboratory results Abnormal [facility] Interpretation and review of laboratory results Abnormal [facility] Interpretation and review of laboratory results Abnormal [facility] Troponin HS Serial Baseline 18 ng/L High NINF - 14 ng/L [facility] Interpretation and review of laboratory results Normal [facility] Interpretation and review of laboratory results Abnormal [facility] Interpretation and review of laboratory results Abnormal [facility] No Panel InformationOrdered By: Dina Baires on 10-09-2024 Interpretation and review of laboratory results Abnormal [facility] No Panel InformationOrdered By: Susan Herzog on 10-09-2024 Source Of Oxygen Nasal Cannula (LPM) [facility] Vital signsOrdered By: Susan Herzog on 10-09-2024 Oxygen saturation in Venous blood 58.1 % [facility] XR Chest Single viewon 10-09 [facility] RADIOLOGY [facility] Radiology Study observation (narrative) [facility] RADIOLOGY [facility] Radiology Study observation (narrative) [facility] XR Chest Single viewOrdered By: Julio Cesar Madison on 10-09-2024 [facility] Work Phone: Progress Noteon 02-25-2024 Progress Note Normal [facility] Laboratory - Chemistry and C hemistry - challengeon 01-03-2024 Glucose [Mass/Vol] 326 mg/dL High 70 - 100 mg/dL [facility] Glucose [Mass/Vol] 331 mg/dL High 70 - 100 mg/dL [facility] No Panel Informationon 01-02 There is no interpre tation needed for this exam. IMAGING Interpretation and review of laboratory results Abnormal [facility] Performed by: [facility], [address] [place], [place] [id number] CLIA ID: [id number] [facility] Interpretation and review of laboratory results Abnormal [facility] Performed by: [facility], [address] [place] [id number] CLIA ID: [id number] [facility] Bacteria identified Cx Nom ( Bld)on 11-29-2023 Interpretation and review of laboratory results Normal [facility] Bacteria identified Cx Nom ( Bld)Ordered By: Adwoa Jefferson on 11-29-2023 Interpretation and review of laboratory results Abnormal [facility] Basic metabolic 1998 panelon 11-29-2023 Anion gap [Moles/Vol] 1 mmol/L Low 3 - 13 mmol/L [facility] Calcium [Mass/Vol] 8.0 mg/dL Low 8.4 - 10. 4 mg/dL [facility] Chloride [Moles/Vol] 108 mmol/L High 98 - 10 7 mmol/L [facility] CO2 [Moles/Vol] 27 mmol/L 22 - 30 mmol/L [facility] Creatinine [Mass/Vol] 0.76 mg/dL 0.52 - 1.04 mg/dL [facility] GFR/1.73 sq M.predicted (S/P/Bld) [Vol rate/Area] 81.8 mL/min - PINF [facility] Glucose [Mass/Vol] 206 mg/dL High 70 - 100 mg/dL [facility] Interpretation and review of laboratory results Abnormal [facility] Potassium [Moles/Vol] 3.8 mmol/L 3.5 - 5.1 mmol/L [facility] Sodium [Moles/Vol] 136 mmol/L 135 - 145 mmol/L [facility] Urea nitrogen [Mass/Vol] 20 mg/dL High 7 - 17 mg/dL [facility] CBC W Auto Differential pane l (Bld)on 11-29-2023 Basophils (Bld) [#/Vol] 0.0 10*3/uL 0.0 - 0.2 10*3/uL [facility] Basophils/100 WBC (Bld) 0.6 % 0.0 - 2.0 % [facility] Eosinophils (Bld) [#/Vol] 0.3 10*3/uL 0.0 - 0.5 10*3/uL [facility] Eosinophils/100 WBC (Bld) 5.5 % 0.0 - 6.0 % [facility] Erythrocyte distribution width (RBC) [Ratio] 16.0 % High 11.5 - 15.0 % [facility] Hematocrit (Bld) [Volume fraction] 32.2 % Low 35.0 - 47.0 % [facility] Hemoglobin (Bld) [Mass/Vol] 10.1 g/dL Low 11.7 - 16.0 g/dL [facility] Immature granulocytes (Bld) [#/Vol] 0.0 10*3/uL NINF - 0.1 10*3/uL [facility] Immature granulocytes/100 WBC (Bld) 0.2 % 0.0 - 2.0 % [facility] Interpretation and review of laboratory results Abnormal [facility] Lymphocytes (Bld) [#/Vol] 1.5 10*3/uL 1.0 - 4.3 10*3/uL [facility] Lymphocytes/100 WBC (Bld) 30.1 % 15.0 - 45.0 % [facility] MCH (RBC) [Entitic mass] 30.9 pg 26.0 - 34.0 pg [facility] MCHC (RBC) [Mass/Vol] 31.4 % 30.5 - 36.0 % [facility] MCV (RBC) [Entitic vol] 98.5 fL 77.0 - 99.0 fL [facility] Monocytes (Bld) [#/Vol] 0.5 10*3/uL 0.0 - 0.9 10*3/uL [facility] Monocytes/100 WBC (Bld) 8.8 % 5.0 - 13.0 % [facility] Neutrophils (Bld) [#/Vol] 2.8 10*3/uL 1.8 - 7.5 10*3/uL [facility] Neutrophils/100 WBC (Bld) 54.8 % 38.0 - 82.0 % [facility] Nucleated RBC/100 WBC (Bld) [Ratio] 0.0 % [facility] Platelet mean volume (Bld) [Entitic vol] 11.0 fL 9.0 - 12.7 fL [facility] Platelets (Bld) [#/Vol] 152 10*3/uL 140 - 440 10*3/uL [facility] RBC (Bld) [#/Vol] 3.27 10*6/uL Low 3.80 - 5.2 0 10*6/uL [facility] WBC (Bld) [#/Vol] 5.1 10*3/uL 3.6 - 10.7 10*3/uL [facility] Basophils (Bld) [#/Vol] 0.0 10*3/uL 0.0 - 0.2 10*3/uL [facility] Basophils/100 WBC (Bld) 0.4 % 0.0 - 2.0 % [facility] Eosinophils (Bld) [#/Vol] 0.3 10*3/uL 0.0 - 0.5 10*3/uL [facility] Eosinophils/100 WBC (Bld) 5.5 % 0.0 - 6.0 % [facility] Erythrocyte distribution width (RBC) [Ratio] 16.0 % High 11.5 - 15.0 % [facility] Hematocrit (Bld) [Volume fraction] 30.2 % Low 35.0 - 47.0 % [facility] Hemoglobin (Bld) [Mass/Vol] 9.4 g/dL Low 11.7 - 16.0 g/dL [facility] Immature granulocytes (Bld) [#/Vol] 0.0 10*3/uL NINF - 0.1 10*3/uL [facility] Immature granulocytes/100 WBC (Bld) 0.2 % 0.0 - 2.0 % [facility] Interpretation and review of laboratory results Abnormal [facility] Lymphocytes (Bld) [#/Vol] 1.7 10*3/uL 1.0 - 4.3 10*3/uL [facility] Lymphocytes/100 WBC (Bld) 36.4 % 15.0 - 45.0 % [facility] MCH (RBC) [Entitic mass] 31.3 pg 26.0 - 34.0 pg [facility] MCHC (RBC) [Mass/Vol] 31.1 % 30.5 - 36.0 % [facility] MCV (RBC) [Entitic vol] 100.7 fL High 77.0 - 99.0 fL [facility] Monocytes (Bld) [#/Vol] 0.4 10*3/uL 0.0 - 0.9 10*3/uL [facility] Monocytes/100 WBC (Bld) 8.8 % 5.0 - 13.0 % [facility] Neutrophils (Bld) [#/Vol] 2.3 10*3/uL 1.8 - 7.5 10*3/uL [facility] Neutrophils/100 WBC (Bld) 48.7 % 38.0 - 82.0 % [facility] Nucleated RBC/100 WBC (Bld) [Ratio] 0.0 % [facility] Platelet mean volume (Bld) [Entitic vol] 11.2 fL 9.0 - 12.7 fL [facility] Platelets (Bld) [#/Vol] 144 10*3/uL 140 - 440 10*3/uL [facility] RBC (Bld) [#/Vol] 3.00 10*6/uL Low 3.80 - 5.2 0 10*6/uL [facility] WBC (Bld) [#/Vol] 4.8 10*3/uL 3.6 - 10.7 10*3/uL [facility] Laboratory - Chemistry and C hemistry - challengeon 11-29-2023 Glucose [Mass/Vol] 203 mg/dL High 70 - 100 mg/dL [facility] Glucose [Mass/Vol] 231 mg/dL High 70 - 100 mg/dL [facility] Glucose [Mass/Vol] 174 mg/dL High 70 - 100 mg/dL [facility] Laboratory - Microbiology an d Antimicrobial susceptibilityon 11-29-2023 Bacteria identified Cx Nom (Bld) No growth at 5 days [facility] Laboratory - Microbiology an d Antimicrobial susceptibilityOrdered By: Adwoa Jefferson on 11-29-2023 Bacteria identified Cx Nom (Bld) Staphylococcus hominis Critically abnormal [facility] Bacteria identified Cx Nom (Bld) Kocuria rosea Critically abnormal [facility] No Panel Informationon 11-28 Interpretation and review of laboratory results Abnormal [facility] Interpretation and review of laboratory results Abnormal [facility] Interpretation and review of laboratory results Abnormal [facility] Basic metabolic 1998 panelon 11-28-2023 Anion gap [Moles/Vol] 5 mmol/L 3 - 13 mmol/L [facility] Calcium [Mass/Vol] 8.4 mg/dL 8.4 - 10. 4 mg/dL [facility] Chloride [Moles/Vol] 108 mmol/L High 98 - 10 7 mmol/L [facility] CO2 [Moles/Vol] 23 mmol/L 22 - 30 mmol/L [facility] Creatinine [Mass/Vol] 0.61 mg/dL 0.52 - 1.04 mg/dL [facility] GFR/1.73 sq M.predicted (S/P/Bld) [Vol rate/Area] - PINF [facility] Glucose [Mass/Vol] 198 mg/dL High 70 - 100 mg/dL [facility] Interpretation and review of laboratory results Abnormal [facility] Potassium [Moles/Vol] 4.9 mmol/L 3.5 - 5.1 mmol/L [facility] Sodium [Moles/Vol] 137 mmol/L 135 - 145 mmol/L [facility] Urea nitrogen [Mass/Vol] 20 mg/dL High 7 - 17 mg/dL [facility] Laboratory - Chemistry and C hemistry - challengeon 11-28-2023 Glucose [Mass/Vol] 200 mg/dL High 70 - 100 mg/dL [facility] Glucose [Mass/Vol] 218 mg/dL High 70 - 100 mg/dL [facility] Glucose [Mass/Vol] 199 mg/dL High 70 - 100 mg/dL [facility] Glucose [Mass/Vol] 199 mg/dL High 70 - 100 mg/dL [facility] Glucose [Mass/Vol] 210 mg/dL High 70 - 100 mg/dL [facility] No Panel Informationon 11-27 Interpretation and review of laboratory results Abnormal [facility] Interpretation and review of laboratory results Abnormal [facility] Interpretation and review of laboratory results Abnormal [facility] Interpretation and review of laboratory results Abnormal [facility] Interpretation and review of laboratory results Abnormal [facility] XR Chest Single viewon 11-27 [facility] [place] [facility]IOLOG[facility] Radiology Study observation (narrative) [facility] XR Chest Single viewOrdered By: Shana Horne on 11-28-2023 [facility] [employer] Work Phone: Basic metabolic 1998 panelon 11-27-2023 Anion gap [Moles/Vol] 6 mmol/L 3 - 13 mmol/L [facility] Calcium [Mass/Vol] 8.1 mg/dL Low 8.4 - 10. 4 mg/dL [facility] Chloride [Moles/Vol] 108 mmol/L High 98 - 10 7 mmol/L [facility] CO2 [Moles/Vol] 22 mmol/L 22 - 30 mmol/L [facility] Creatinine [Mass/Vol] 0.70 mg/dL 0.52 - 1.04 mg/dL [facility] GFR/1.73 sq M.predicted (S/P/Bld) [Vol rate/Area] - PINF [facility] Glucose [Mass/Vol] 284 mg/dL High 70 - 100 mg/dL [facility] Interpretation and review of laboratory results Abnormal [facility] Potassium [Moles/Vol] 4.7 mmol/L 3.5 - 5.1 mmol/L [facility] Sodium [Moles/Vol] 136 mmol/L 135 - 145 mmol/L [facility] Urea nitrogen [Mass/Vol] 23 mg/dL High 7 - 17 mg/dL [facility] CBC W Auto Differential pane l (Bld)Ordered By: Orville Cárdenas on 11-27-2023 Basophils (Bld) [#/Vol] 0.0 10*3/uL 0.0 - 0.2 10*3/uL [facility] Basophils/100 WBC (Bld) 0.5 % 0.0 - 2.0 % [facility] Eosinophils (Bld) [#/Vol] 0.2 10*3/uL 0.0 - 0.5 10*3/uL [facility] Eosinophils/100 WBC (Bld) 4.3 % 0.0 - 6.0 % [facility] Erythrocyte distribution width (RBC) [Ratio] 16.0 % High 11.5 - 15.0 % [facility] Hematocrit (Bld) [Volume fraction] 34.6 % Low 35.0 - 47.0 % [facility] Hemoglobin (Bld) [Mass/Vol] 10.7 g/dL Low 11.7 - 16.0 g/dL [facility] Immature granulocytes (Bld) [#/Vol] 0.0 10*3/uL NINF - 0.1 10*3/uL [facility] Immature granulocytes/100 WBC (Bld) 0.7 % 0.0 - 2.0 % [facility] Interpretation and review of laboratory results Abnormal [facility] Lymphocytes (Bld) [#/Vol] 1.0 10*3/uL 1.0 - 4.3 10*3/uL [facility] Lymphocytes/100 WBC (Bld) 23.6 % 15.0 - 45.0 % [facility] MCH (RBC) [Entitic mass] 31.1 pg 26.0 - 34.0 pg [facility] MCHC (RBC) [Mass/Vol] 30.9 % 30.5 - 36.0 % [facility] MCV (RBC) [Entitic vol] 100.6 fL High 77.0 - 99.0 fL [facility] Monocytes (Bld) [#/Vol] 0.3 10*3/uL 0.0 - 0.9 10*3/uL [facility] Monocytes/100 WBC (Bld) 7.8 % 5.0 - 13.0 % [facility] Neutrophils (Bld) [#/Vol] 2.7 10*3/uL 1.8 - 7.5 10*3/uL [facility] Neutrophils/100 WBC (Bld) 63.1 % 38.0 - 82.0 % [facility] Nucleated RBC/100 WBC (Bld) [Ratio] 0.0 % [facility] Platelet mean volume (Bld) [Entitic vol] 11.6 fL 9.0 - 12.7 fL [facility] Platelets (Bld) [#/Vol] 147 10*3/uL 140 - 440 10*3/uL [facility] RBC (Bld) [#/Vol] 3.44 10*6/uL Low 3.80 - 5.2 0 10*6/uL [facility] WBC (Bld) [#/Vol] 4.2 10*3/uL 3.6 - 10.7 10*3/uL [facility] Laboratory - Chemistry and C hemistry - challengeon 11-27-2023 Glucose [Mass/Vol] 228 mg/dL High 70 - 100 mg/dL [facility] Glucose [Mass/Vol] 248 mg/dL High 70 - 100 mg/dL [facility] Glucose [Mass/Vol] 305 mg/dL High 70 - 100 mg/dL [facility] Glucose [Mass/Vol] 353 mg/dL High 70 - 100 mg/dL [facility] No Panel Informationon 11-26 Interpretation and review of laboratory results Abnormal [facility] Interpretation and review of laboratory results Abnormal [facility] Interpretation and review of laboratory results Abnormal [facility] Interpretation and review of laboratory results Abnormal [facility] Bacteria identified Cx Nom ( U)on 11-26-2023 Interpretation and review of laboratory results Abnormal [facility] Basic metabolic 1998 panelon 11-26-2023 Anion gap [Moles/Vol] 0 mmol/L Low 3 - 13 mmol/L [facility] Calcium [Mass/Vol] 7.7 mg/dL Low 8.4 - 10. 4 mg/dL [facility] Chloride [Moles/Vol] 108 mmol/L High 98 - 10 7 mmol/L [facility] CO2 [Moles/Vol] 25 mmol/L 22 - 30 mmol/L [facility] Creatinine [Mass/Vol] 0.74 mg/dL 0.52 - 1.04 mg/dL [facility] GFR/1.73 sq M.predicted (S/P/Bld) [Vol rate/Area] 84.5 mL/min - PINF [facility] Glucose [Mass/Vol] 211 mg/dL High 70 - 100 mg/dL [facility] Interpretation and review of laboratory results Abnormal [facility] Potassium [Moles/Vol] 4.3 mmol/L 3.5 - 5.1 mmol/L [facility] Sodium [Moles/Vol] 133 mmol/L Low 135 - 145 mmol/L [facility] Urea nitrogen [Mass/Vol] 22 mg/dL High 7 - 17 mg/dL [facility] CBC W Auto Differential pane l (Bld)Ordered By: Patricia Aragon on 11-26-2023 Basophils (Bld) [#/Vol] 0.0 10*3/uL 0.0 - 0.2 10*3/uL [facility] Basophils/100 WBC (Bld) 0.8 % 0.0 - 2.0 % [facility] Eosinophils (Bld) [#/Vol] 0.2 10*3/uL 0.0 - 0.5 10*3/uL [facility] Eosinophils/100 WBC (Bld) 5.9 % 0.0 - 6.0 % [facility] Erythrocyte distribution width (RBC) [Ratio] 16.4 % High 11.5 - 15.0 % [facility] Hematocrit (Bld) [Volume fraction] 31.6 % Low 35.0 - 47.0 % [facility] Hemoglobin (Bld) [Mass/Vol] 10.2 g/dL Low 11.7 - 16.0 g/dL [facility] Immature granulocytes (Bld) [#/Vol] 0.0 10*3/uL NINF - 0.1 10*3/uL [facility] Immature granulocytes/100 WBC (Bld) 0.3 % 0.0 - 2.0 % [facility] Interpretation and review of laboratory results Abnormal [facility] Lymphocytes (Bld) [#/Vol] 1.1 10*3/uL 1.0 - 4.3 10*3/uL [facility] Lymphocytes/100 WBC (Bld) 27.1 % 15.0 - 45.0 % [facility] MCH (RBC) [Entitic mass] 32.3 pg 26.0 - 34.0 pg [facility] MCHC (RBC) [Mass/Vol] 32.3 % 30.5 - 36.0 % [facility] MCV (RBC) [Entitic vol] 100.0 fL High 77.0 - 99.0 fL [facility] Monocytes (Bld) [#/Vol] 0.4 10*3/uL 0.0 - 0.9 10*3/uL [facility] Monocytes/100 WBC (Bld) 9.7 % 5.0 - 13.0 % [facility] Neutrophils (Bld) [#/Vol] 2.2 10*3/uL 1.8 - 7.5 10*3/uL [facility] Neutrophils/100 WBC (Bld) 56.2 % 38.0 - 82.0 % [facility] Nucleated RBC/100 WBC (Bld) [Ratio] 0.0 % [facility] Platelet mean volume (Bld) [Entitic vol] 12.5 fL 9.0 - 12.7 fL [facility] Platelets (Bld) [#/Vol] 169 10*3/uL 140 - 440 10*3/uL [facility] RBC (Bld) [#/Vol] 3.16 10*6/uL Low 3.80 - 5.2 0 10*6/uL [facility] WBC (Bld) [#/Vol] 3.9 10*3/uL 3.6 - 10.7 10*3/uL [facility] Laboratory - Chemistry and C hemistry - challengeon 11-26-2023 Glucose [Mass/Vol] 222 mg/dL High 70 - 100 mg/dL [facility] Glucose [Mass/Vol] 218 mg/dL High 70 - 100 mg/dL [facility] Glucose [Mass/Vol] 262 mg/dL High 70 - 100 mg/dL [facility] Laboratory - Drug toxicology on 11-26-2023 Vancomycin trough [Mass/Vol] 17.7 ug/mL 15.0 - 20.0 ug/mL [facility] Laboratory - Microbiology an d Antimicrobial susceptibilityon 11-26-2023 Bacteria identified Cx Nom (U) >100,000 CFU/mL Escherichia coli Abnormal [facility] Bacteria identified Cx Nom (U) >100,000 CFU/mL Providencia stuartii Abnormal [facility] No Panel Informationon 11-25 Interpretation and review of laboratory results Abnormal [facility] Interpretation and review of laboratory results Abnormal [facility] Interpretation and review of laboratory results Abnormal [facility] Vancomycin trough [Mass/Vol] on 11-26-2023 Interpretation and review of laboratory results Normal [facility] Bacteria identified Cx Nom ( Bld)Ordered By: Kavin Johnson on 11-25-2023 Interpretation and review of laboratory results Abnormal [facility] CBC panel Auto (Bld)on 11-24 Erythrocyte distribution width (RBC) [Ratio] 16.3 % High 11.5 - 15.0 % [facility] Hematocrit (Bld) [Volume fraction] 30.5 % Low 35.0 - 47.0 % [facility] Hemoglobin (Bld) [Mass/Vol] 9.5 g/dL Low 11.7 - 16.0 g/dL [facility] Interpretation and review of laboratory results Abnormal [facility] IPF 5 [facility] MCH (RBC) [Entitic mass] 31.0 pg 26.0 - 34.0 pg [facility] MCHC (RBC) [Mass/Vol] 31.1 % 30.5 - 36.0 % [facility] MCV (RBC) [Entitic vol] 99.7 fL High 77.0 - 99.0 fL [facility] Platelet mean volume (Bld) [Entitic vol] 11.3 fL 9.0 - 12.7 fL [facility] Platelets (Bld) [#/Vol] 119 10*3/uL Low 140 - 440 10*3/uL [facility] RBC (Bld) [#/Vol] 3.06 10*6/uL Low 3.80 - 5.2 0 10*6/uL [facility] WBC (Bld) [#/Vol] 3.4 10*3/uL Low 3.6 - 10.7 10*3/uL [facility] Comprehensive metabolic 1998 panelon 11-25-2023 Albumin [Mass/Vol] 2.4 g/dL Low 3.5 - 5.0 g/dL [facility] ALP [Catalytic activity/Vol] 62 U/L 38 - 126 U/L [facility] ALT [Catalytic activity/Vol] 13 U/L 0 - 34 U/L [facility] Anion gap [Moles/Vol] 1 mmol/L Low 3 - 13 mmol/L [facility] AST [Catalytic activity/Vol] 21 U/L 15 - 46 U/L [facility] Bilirubin [Mass/Vol] 0.4 mg/dL 0.2 - 1 .3 mg/dL [facility] Calcium [Mass/Vol] 7.6 mg/dL Low 8.4 - 10. 4 mg/dL [facility] Chloride [Moles/Vol] 107 mmol/L 98 - 10 7 mmol/L [facility] CO2 [Moles/Vol] 27 mmol/L 22 - 30 mmol/L [facility] Creatinine [Mass/Vol] 0.80 mg/dL 0.52 - 1.04 mg/dL [facility] GFR/1.73 sq M.predicted (S/P/Bld) [Vol rate/Area] 76.9 mL/min - PINF [facility] Glucose [Mass/Vol] 230 mg/dL High 70 - 100 mg/dL [facility] Interpretation and review of laboratory results Abnormal [facility] Potassium [Moles/Vol] 3.9 mmol/L 3.5 - 5.1 mmol/L [facility] Protein [Mass/Vol] 5.2 g/dL Low 6.3 - 8.2 g/dL [facility] Sodium [Moles/Vol] 135 mmol/L 135 - 145 mmol/L [facility] Urea nitrogen [Mass/Vol] 22 mg/dL High 7 - 17 mg/dL [facility] Laboratory - Chemistry and C hemistry - challengeon 11-25-2023 Glucose [Mass/Vol] 328 mg/dL High 70 - 100 mg/dL [facility] Glucose [Mass/Vol] 273 mg/dL High 70 - 100 mg/dL [facility] Glucose [Mass/Vol] 280 mg/dL High 70 - 100 mg/dL [facility] Glucose [Mass/Vol] 219 mg/dL High 70 - 100 mg/dL [facility] Laboratory - Microbiology an d Antimicrobial susceptibilityOrdered By: Kavin Johnson on 11-25-2023 Bacteria identified Cx Nom (Bld) Staphylococcus hominis Critically abnormal [facility] Bacteria identified Cx Nom (Bld) Staphylococcus epidermidis Critically abnormal [facility] No Panel Informationon 08-25 -2024 Interpretation and review of laboratory results Abnormal [facility] Interpretation and review of laboratory results Abnormal [facility] Interpretation and review of laboratory results Abnormal [facility] IMAGING Interpretation and review of laboratory results Abnormal [facility] No Panel InformationOrdered By: Hari Villavicencio on 11-25-2023 Targets Detected Not detected [facility] CBC panel Auto (Bld)on 11-23 Erythrocyte distribution width (RBC) [Ratio] 15.9 % High 11.5 - 15.0 % [facility] Hematocrit (Bld) [Volume fraction] 33.0 % Low 35.0 - 47.0 % [facility] Hemoglobin (Bld) [Mass/Vol] 10.1 g/dL Low 11.7 - 16.0 g/dL [facility] Interpretation and review of laboratory results Abnormal [facility] IPF 5 [facility] MCH (RBC) [Entitic mass] 30.4 pg 26.0 - 34.0 pg [facility] MCHC (RBC) [Mass/Vol] 30.6 % 30.5 - 36.0 % [facility] MCV (RBC) [Entitic vol] 99.4 fL High 77.0 - 99.0 fL [facility] Platelet mean volume (Bld) [Entitic vol] 11.3 fL 9.0 - 12.7 fL [facility] Platelets (Bld) [#/Vol] 126 10*3/uL Low 140 - 440 10*3/uL [facility] RBC (Bld) [#/Vol] 3.32 10*6/uL Low 3.80 - 5.2 0 10*6/uL [facility] WBC (Bld) [#/Vol] 5.0 10*3/uL 3.6 - 10.7 10*3/uL [facility] Comprehensive metabolic 1998 panelon 11-24-2023 Albumin [Mass/Vol] 2.6 g/dL Low 3.5 - 5.0 g/dL [facility] ALP [Catalytic activity/Vol] 68 U/L 38 - 126 U/L [facility] ALT [Catalytic activity/Vol] 15 U/L 0 - 34 U/L [facility] Anion gap [Moles/Vol] 3 mmol/L 3 - 13 mmol/L [facility] AST [Catalytic activity/Vol] 22 U/L 15 - 46 U/L [facility] [facility] Bilirubin [Mass/Vol] 0.5 mg/dL 0.2 - 1 .3 mg/dL [facility] Calcium [Mass/Vol] 7.9 mg/dL Low 8.4 - 10. 4 mg/dL [facility] Chloride [Moles/Vol] 107 mmol/L 98 - 10 7 mmol/L [facility] CO2 [Moles/Vol] 27 mmol/L 22 - 30 mmol/L [facility] Creatinine [Mass/Vol] 0.81 mg/dL 0.52 - 1.04 mg/dL [facility] GFR/1.73 sq M.predicted (S/P/Bld) [Vol rate/Area] 75.8 mL/min - PINF [facility] Glucose [Mass/Vol] 319 mg/dL High 70 - 100 mg/dL [facility] Potassium [Moles/Vol] 4.1 mmol/L 3.5 - 5.1 mmol/L [facility] Protein [Mass/Vol] 5.4 g/dL Low 6.3 - 8.2 g/dL [facility] Sodium [Moles/Vol] 137 mmol/L 135 - 145 mmol/L [facility] Urea nitrogen [Mass/Vol] 25 mg/dL High 7 - 17 mg/dL [facility] Laboratory - Chemistry and C hemistry - challengeon 11-24-2023 Glucose [Mass/Vol] 331 mg/dL High 70 - 100 mg/dL [facility] Glucose [Mass/Vol] 331 mg/dL High 70 - 100 mg/dL [facility] Glucose [Mass/Vol] 371 mg/dL High 70 - 100 mg/dL [facility] Glucose [Mass/Vol] 302 mg/dL High 70 - 100 mg/dL [facility] Lactate [Moles/Vol] 1.9 mmol/L 0.7 - 2. 0 mmol/L [facility] Glucose [Mass/Vol] 251 mg/dL High 70 - 100 mg/dL [facility] Lactate [Moles/Vol] 2.3 mmol/L High 0.7 - 2. 0 mmol/L [facility] Lactate [Moles/Vol] 2.6 mmol/L High 0.7 - 2. 0 mmol/L [facility] Laboratory - Drug toxicology on 11-24-2023 Vancomycin trough [Mass/Vol] 5.7 ug/mL Low 15.0 - 20.0 ug/mL [facility] No Panel Informationon 11-23 Interpretation and review of laboratory results Abnormal [facility] Interpretation and review of laboratory results Abnormal [facility] Interpretation and review of laboratory results Abnormal [facility] Interpretation and review of laboratory results Abnormal [facility] Interpretation and review of laboratory results Normal [facility] Interpretation and review of laboratory results Abnormal [facility] Interpretation and review of laboratory results Abnormal [facility] Interpretation and review of laboratory results Abnormal [facility] Vancomycin trough [Mass/Vol] on 11-24-2023 Interpretation and review of laboratory results Abnormal [facility] CBC panel Auto (Bld)Ordered By: Samina Sorensen on 11-23-2023 Erythrocyte distribution width (RBC) [Ratio] 15.7 % High 11.5 - 15.0 % [facility] Hematocrit (Bld) [Volume fraction] 33.2 % Low 35.0 - 47.0 % [facility] Hemoglobin (Bld) [Mass/Vol] 10.3 g/dL Low 11.7 - 16.0 g/dL [facility] Interpretation and review of laboratory results Abnormal [facility] MCH (RBC) [Entitic mass] 30.7 pg 26.0 - 34.0 pg [facility] MCHC (RBC) [Mass/Vol] 31.0 % 30.5 - 36.0 % [facility] MCV (RBC) [Entitic vol] 98.8 fL 77.0 - 99.0 fL [facility] Platelet mean volume (Bld) [Entitic vol] 11.4 fL 9.0 - 12.7 fL [facility] Platelets (Bld) [#/Vol] 146 10*3/uL 140 - 440 10*3/uL [facility] RBC (Bld) [#/Vol] 3.36 10*6/uL Low 3.80 - 5.2 0 10*6/uL [facility] WBC (Bld) [#/Vol] 7.4 10*3/uL 3.6 - 10.7 10*3/uL [facility] CT Abdomen WO contraston [facility] [place] [facility] Radiology Study observation (narrative) [facility] CT Abdomen WO contrastOrdere d By: Phillip Ng on 11-23-2023 [facility] [employer] Work Phone: Comprehensive metabolic 1998 panelon 11-23-2023 Albumin [Mass/Vol] 2.8 g/dL Low 3.5 - 5.0 g/dL [facility] ALP [Catalytic activity/Vol] 78 U/L 38 - 126 U/L [facility] ALT [Catalytic activity/Vol] 15 U/L 0 - 34 U/L [facility] Anion gap [Moles/Vol] 4 mmol/L 3 - 13 mmol/L [facility] AST [Catalytic activity/Vol] 21 U/L 15 - 46 U/L [facility] Bilirubin [Mass/Vol] 0.4 mg/dL 0.2 - 1 .3 mg/dL [facility] Calcium [Mass/Vol] 8.1 mg/dL Low 8.4 - 10. 4 mg/dL [facility] Chloride [Moles/Vol] 107 mmol/L 98 - 10 7 mmol/L [facility] CO2 [Moles/Vol] 26 mmol/L 22 - 30 mmol/L [facility] Creatinine [Mass/Vol] 0.79 mg/dL 0.52 - 1.04 mg/dL [facility] GFR/1.73 sq M.predicted (S/P/Bld) [Vol rate/Area] 78.1 mL/min - PINF [facility] Glucose [Mass/Vol] 327 mg/dL High 70 - 100 mg/dL [facility] Interpretation and review of laboratory results Abnormal [facility] Potassium [Moles/Vol] 3.9 mmol/L 3.5 - 5.1 mmol/L [facility] Protein [Mass/Vol] 5.8 g/dL Low 6.3 - 8.2 g/dL [facility] Sodium [Moles/Vol] 137 mmol/L 135 - 145 mmol/L [facility] Urea nitrogen [Mass/Vol] 24 mg/dL High 7 - 17 mg/dL [facility] Laboratory - Chemistry and C hemistry - challengeon 11-23-2023 Glucose [Mass/Vol] 330 mg/dL High 70 - 100 mg/dL [facility] Glucose [Mass/Vol] 295 mg/dL High 70 - 100 mg/dL [facility] Glucose [Mass/Vol] 313 mg/dL High 70 - 100 mg/dL [facility] Lactate [Moles/Vol] 2.8 mmol/L High 0.7 - 2. 0 mmol/L [facility] Glucose [Mass/Vol] 296 mg/dL High 70 - 100 mg/dL [facility] Average glucose Estimated from glycated hemoglobin (Bld) [Mass/Vol] 223 mg/dL [facility] Troponin I.cardiac [Mass/Vol] 0.012 ng/mL NINF - 0.034 ng/mL [facility] Magnesium [Mass/Vol] 1.9 mg/dL 1.6 - 2 .3 mg/dL [facility] Lactate [Moles/Vol] 2.9 mmol/L High 0.7 - 2. 0 mmol/L [facility] Lactate [Moles/Vol] 2.7 mmol/L High 0.7 - 2. 0 mmol/L [facility] Troponin I.cardiac [Mass/Vol] 0.012 ng/mL NINF - 0.034 ng/mL [facility] Laboratory - Chemistry and C hemistry - challengeOrdered By: Talia Hill on 11-23-2023 Lactate [Moles/Vol] 4.4 mmol/L Critically high 0.7 - 2.0 mmol/L [facility] Laboratory - Chemistry and C hemistry - challengeOrdered By: Ifeanyi Jordan on 11-23-2023 Base excess Calc (BldV) [Moles/Vol] 5.1 mmol/L High -3.0 - 3.0 mmol/L [facility] CO2 (BldV) [Partial pressure] 63.3 mm[Hg] High [facility] CO2 [Moles/Vol] 34.8 mmol/L High 24.0 - 28.0 mmol/L [facility] HCO3 (Bld) [Moles/Vol] 32.9 mmol/L High 23.0 - 27.0 mmol/L [facility] Oxygen (BldV) [Partial pressure] 34.8 mm[Hg] mm Hg [facility] pH (BldV) 7.333 [pH] 7.330 - 7.430 [facility] Laboratory - Hematology and Cell countson 11-23-2023 HbA1c (Bld) [Mass fraction] 9.4 % High NINF - 5.7 % [facility] Laboratory - Hematology and Cell countsOrdered By: Ifeanyi Jordan on 11-23-2023 Hemoglobin (Bld) [Mass/Vol] 13.3 g/dL Screen only [facility] Magnesium [Mass/Vol]on 11-22 Interpretation and review of laboratory results Normal [facility] No Panel Informationon 11-22 Interpretation and review of laboratory results Abnormal [facility] Interpretation and review of laboratory results Abnormal [facility] Interpretation and review of laboratory results Abnormal [facility] CV CPACS Interpretation and review of laboratory results Abnormal [facility] Interpretation and review of laboratory results Abnormal [facility] Interpretation and review of laboratory results Abnormal [facility] Interpretation and review of laboratory results Abnormal [facility] Interpretation and review of laboratory results Abnormal [facility] P [place] 0 degrees [facility] [place] Interval 90 ms [facility] QRS [place] 14 degrees [facility] QRSD Interval 144 ms [facility] QT Interval 478 ms [facility] QTC Interval 512 ms [facility] T Wave [place] 72 degrees [facility] CV EPIPHANY [facility] No Panel InformationOrdered By: Talia Hill on 11-23-2023 Interpretation and review of laboratory results Abnormal [facility] No Panel InformationOrdered By: Katie Zacarias on 11-23-2023 Interpretation and review of laboratory results Abnormal [facility] mecA/C (MRSE/MRSL) Detected Abnormal Not Detected [facility] Staphylococcus epidermidis Detected Abnormal Not Detected [facility] No Panel InformationOrdered By: Ifeanyi Jordan on 11-23-2023 Interpretation and review of laboratory results Abnormal [facility] Source Of Oxygen Room Air [facility] Troponin I.cardiac [Mass/Vol ]on 11-23-2023 Interpretation and review of laboratory results Normal [facility] Interpretation and review of laboratory results Normal [facility] Vital signson 11-23-2023 Heart rate 69 /min bpm [facility] Vital signsOrdered By: Sharath Jordan on 11-23-2023 Oxygen saturation in Venous blood 61.7 % [facility] CBC W Auto Differential pane l (Bld)on 11-22-2023 Basophils (Bld) [#/Vol] 0.0 10*3/uL 0.0 - 0.2 10*3/uL [facility] Basophils/100 WBC (Bld) 0.3 % 0.0 - 2.0 % [facility] Eosinophils (Bld) [#/Vol] 0.2 10*3/uL 0.0 - 0.5 10*3/uL [facility] Eosinophils/100 WBC (Bld) 2.3 % 0.0 - 6.0 % [facility] Erythrocyte distribution width (RBC) [Ratio] 15.8 % High 11.5 - 15.0 % [facility] Hematocrit (Bld) [Volume fraction] 37.0 % 35.0 - 47.0 % [facility] Hemoglobin (Bld) [Mass/Vol] 11.7 g/dL 11.7 - 16.0 g/dL [facility] Immature granulocytes (Bld) [#/Vol] 0.0 10*3/uL NINF - 0.1 10*3/uL [facility] Immature granulocytes/100 WBC (Bld) 0.4 % 0.0 - 2.0 % [facility] Interpretation and review of laboratory results Abnormal [facility] Lymphocytes (Bld) [#/Vol] 1.3 10*3/uL 1.0 - 4.3 10*3/uL [facility] Lymphocytes/100 WBC (Bld) 17.3 % 15.0 - 45.0 % [facility] MCH (RBC) [Entitic mass] 31.2 pg 26.0 - 34.0 pg [facility] MCHC (RBC) [Mass/Vol] 31.6 % 30.5 - 36.0 % [facility] MCV (RBC) [Entitic vol] 98.7 fL 77.0 - 99.0 fL [facility] Monocytes (Bld) [#/Vol] 0.5 10*3/uL 0.0 - 0.9 10*3/uL [facility] Monocytes/100 WBC (Bld) 6.9 % 5.0 - 13.0 % [facility] Neutrophils (Bld) [#/Vol] 5.4 10*3/uL 1.8 - 7.5 10*3/uL [facility] Neutrophils/100 WBC (Bld) 72.8 % 38.0 - 82.0 % [facility] Nucleated RBC/100 WBC (Bld) [Ratio] 0.0 % [facility] Platelet mean volume (Bld) [Entitic vol] 11.9 fL 9.0 - 12.7 fL [facility] Platelets (Bld) [#/Vol] 138 10*3/uL Low 140 - 440 10*3/uL [facility] RBC (Bld) [#/Vol] 3.75 10*6/uL Low 3.80 - 5.2 0 10*6/uL [facility] WBC (Bld) [#/Vol] 7.4 10*3/uL 3.6 - 10.7 10*3/uL [facility] CT Head WO contraston 2023 [facility] [place] [facility] Radiology Study observation (narrative) [facility] CT Head WO contrastOrdered B y: Sy Akins on 11-22-2023 [facility] [employer] Work Phone: Comprehensive metabolic 1998 panelon 11-22-2023 Albumin [Mass/Vol] 3.4 g/dL Low 3.5 - 5.0 g/dL [facility] ALP [Catalytic activity/Vol] 82 U/L 38 - 126 U/L [facility] ALT [Catalytic activity/Vol] 16 U/L 0 - 34 U/L [facility] Anion gap [Moles/Vol] 4 mmol/L 3 - 13 mmol/L [facility] AST [Catalytic activity/Vol] 36 U/L 15 - 46 U/L [facility] Bilirubin [Mass/Vol] 0.8 mg/dL 0.2 - 1 .3 mg/dL [facility] Calcium [Mass/Vol] 8.7 mg/dL 8.4 - 10. 4 mg/dL [facility] Chloride [Moles/Vol] 103 mmol/L 98 - 10 7 mmol/L [facility] CO2 [Moles/Vol] 29 mmol/L 22 - 30 mmol/L [facility] Creatinine [Mass/Vol] 0.91 mg/dL 0.52 - 1.04 mg/dL [facility] GFR/1.73 sq M.predicted (S/P/Bld) [Vol rate/Area] 65.9 mL/min - PINF [facility] Glucose [Mass/Vol] 350 mg/dL High 70 - 100 mg/dL [facility] Interpretation and review of laboratory results Abnormal [facility] Potassium [Moles/Vol] 4.5 mmol/L 3.5 - 5.1 mmol/L [facility] Protein [Mass/Vol] 6.9 g/dL 6.3 - 8.2 g/dL [facility] Sodium [Moles/Vol] 137 mmol/L 135 - 145 mmol/L [facility] Urea nitrogen [Mass/Vol] 28 mg/dL High 7 - 17 mg/dL [facility] Free T4 [Mass/Vol]on 024 Free T4 Dialysis [Mass/Vol] 2.06 ng/dL 0.78 - 2.19 ng/dL [facility] Interpretation and review of laboratory results Normal [facility] Laboratory - Chemistry and C hemistry - challengeon 11-22-2023 TSH Qn 1.649 m[IU]/L [facility] Troponin I.cardiac [Mass/Vol] ng/mL NINF - 0.034 ng/mL [facility] Beta hydroxybutyrate [Mass/Vol] 2.08 mg/dL 0.20 - 2.81 mg/dL [facility] Lactate [Moles/Vol] 2.6 mmol/L High 0.7 - 2. 0 mmol/L [facility] Glucose [Mass/Vol] 390 mg/dL High 70 - 100 mg/dL [facility] Laboratory - Microbiology an d Antimicrobial susceptibilityon 11-22-2023 FLUAV RNA EZIO+probe Ql (Resp) Not detected Not Detected [facility] FLUBV RNA EZIO+probe Ql (Resp) Not detected Not Detected [facility] RSV RNA EZIO+probe Ql (Resp) Not detected Not Detected [facility] SARS-CoV-2 (COVID-19) RNA EZIO+probe Ql (Resp) Not detected Not Detected [facility] No Panel Informationon 11-21 Interpretation and review of laboratory results Normal [facility] Interpretation and review of laboratory results Abnormal [facility] Interpretation and review of laboratory results Abnormal [facility] SARS-CoV-2, Flu A/B, and RSV Comboon 11-22-2023 Interpretation and review of laboratory results Normal [facility] TSH Qnon 11-22-2023 Interpretation and review of laboratory results Normal [facility] Troponin I.cardiac [Mass/Vol ]on 11-22-2023 Interpretation and review of laboratory results Normal [facility] Urinalysis complete panel (U )Ordered By: Adele Arevalo on 11-22-2023 Bacteria LM.HPF (Urine sed) [#/Area] Moderate Abnormal Negative /HPF [facility] Bilirubin Ql (U) Negative Negative mg/dL [facility] Clarity (U) Clear Clear [facility] Color (U) Light Yellow Lt. Yellow [facility] Epithelial cells.squamous LM.HPF (Urine sed) [#/Area] 0-2 [facility] Glucose Ql (U) >1,000 Abnormal Normal (<70) mg/dL [facility] Hemoglobin Ql (U) 0.2 mg/dL Abnormal Negative [facility] Hyaline casts Auto (Urine sed) [#/Area] Negative Negative /LPF [facility] Interpretation and review of laboratory results Abnormal [facility] Ketones (U) [Mass/Vol] Negative Negat iris mg/dL [facility] Leukocyte esterase Test strip Ql (U) 250 Abnormal Negative Jimenez/uL [facility] Mucus LM.HPF (Urine sed) [#/Area] Few Negative /LPF [facility] Nitrite Ql (U) Positive Abnormal Negative [facility] pH (U) 7.0 [pH] 5.0 - 8.0 pH [facility] Protein (U) [Mass/Vol] 70 mg/dL Abnormal Negative [facility] RBC LM.HPF (Urine sed) [#/Area] 26-50 Abnormal [facility] Specific gravity (U) [Rel density] 1.019 1.005 - 1.030 [facility] Urobilinogen (U) [Mass/Vol] Normal Normal (0-1) mg/dL [facility] WBC LM.HPF (Urine sed) [#/Area] 26-50 Abnormal [facility] XR Chest Single viewon 11-21 [facility] Radiology Study observation (narrative) [facility] Laboratory - Chemistry and C hemistry - challengeon 09-27-2023 Glucose [Mass/Vol] 243 mg/dL High 70 - 100 mg/dL [facility] Glucose [Mass/Vol] 245 mg/dL High 70 - 100 mg/dL [facility] Glucose [Mass/Vol] 212 mg/dL High 70 - 100 mg/dL [facility] No Panel Informationon 09-26 Interpretation and review of laboratory results Abnormal [facility] Performed by: [facility], [address], [facility] [address] CLIA ID: [id number] [facility] There is no interpre tation needed for this exam. IMAGING Interpretation and review of laboratory results Abnormal [facility] Performed by: [facility], [address], [facility] [address] CLIA ID: [id number] [facility] Interpretation and review of laboratory results Abnormal [facility] Performed by: [facility], [address] [place] [address], [facility] [address] CLIA ID: [id number] [facility] Radiology Study observation (narrative) [facility] Radiology Study observation (narrative) [facility] Radiology Study observation (narrative) [facility] Basic metabolic 1998 panelon 08-09-2023 Anion gap [Moles/Vol] 7 mmol/L 3 - 13 mmol/L [facility] Calcium [Mass/Vol] 8.5 mg/dL 8.4 - 10. 4 mg/dL [facility] Chloride [Moles/Vol] 99 mmol/L 98 - 10 7 mmol/L [facility] CO2 [Moles/Vol] 33 mmol/L High 22 - 30 mmol/L [facility] Creatinine [Mass/Vol] 1.17 mg/dL High 0.52 - 1.04 mg/dL [facility] GFR/1.73 sq M.predicted MDRD (S/P/Bld) [Vol rate/Area] 49.1 mL/min/{1.73_m2} Low - PINF [facility] Glucose [Mass/Vol] 166 mg/dL High 70 - 100 mg/dL [facility] Interpretation and review of laboratory results Abnormal [facility] Potassium [Moles/Vol] 3.9 mmol/L 3.5 - 5.1 mmol/L [facility] Sodium [Moles/Vol] 140 mmol/L 135 - 145 mmol/L [facility] Urea nitrogen [Mass/Vol] 69 mg/dL High 7 - 17 mg/dL [facility] CBC W Auto Differential pane l (Bld)on 08-09-2023 Erythrocyte distribution width (RBC) [Ratio] 15.0 % 11.5 - 15.0 % [facility] Hematocrit (Bld) [Volume fraction] 25.6 % Low 35.0 - 47.0 % [facility] Hemoglobin (Bld) [Mass/Vol] 7.9 g/dL Low 11.7 - 16.0 g/dL [facility] MCH (RBC) [Entitic mass] 33.5 pg 26.0 - 34.0 pg [facility] MCHC (RBC) [Mass/Vol] 30.9 % 30.5 - 36.0 % [facility] MCV (RBC) [Entitic vol] 108.5 fL High 77.0 - 99.0 fL [facility] Platelet mean volume (Bld) [Entitic vol] 11.7 fL 9.0 - 12.7 fL [facility] Platelets (Bld) [#/Vol] 201 10*3/uL 140 - 440 10*3/uL [facility] RBC (Bld) [#/Vol] 2.36 10*6/uL Low 3.80 - 5.2 0 10*6/uL [facility] WBC (Bld) [#/Vol] 6.3 10*3/uL 3.6 - 10.7 10*3/uL [facility] Laboratory - Chemistry and C hemistry - challengeon 08-09-2023 Glucose [Mass/Vol] 173 mg/dL High 70 - 100 mg/dL [facility] Glucose [Mass/Vol] 125 mg/dL High 70 - 100 mg/dL [facility] Laboratory - Hematology and Cell countson 08-09-2023 Anisocytosis Ql (Bld) Rare Abnormal (none) [facility] Basophils (Bld) [#/Vol] 0.1 10*3/uL 0.0 - 0.2 10*3/uL [facility] Basophils/100 WBC (Bld) 1 % 0 - 2 % [facility] Eosinophils (Bld) [#/Vol] 0.2 10*3/uL 0.0 - 0.5 10*3/uL [facility] Eosinophils/100 WBC (Bld) 3 % 0 - 6 % [facility] Hypochromia Ql (Bld) Rare Abnormal (none) [facility] Lymphocytes (Bld) [#/Vol] 1.7 10*3/uL 1.0 - 4.3 10*3/uL [facility] Lymphocytes/100 WBC (Bld) 27 % 15 - 45 % [facility] Macrocytes Ql (Bld) Rare Abnormal (none) [facility] Monocytes (Bld) [#/Vol] 0.3 10*3/uL 0.0 - 0.9 10*3/uL [facility] Monocytes/100 WBC (Bld) 4 % Low 5 - 13 % [facility] Neutrophils (Bld) [#/Vol] 4.1 10*3/uL 1.8 - 7.5 10*3/uL [facility] Poikilocytosis LM Ql (Bld) Rare Abnormal (none) [facility] RBC morphology finding Nom (Bld) abnormal [facility] Segmented neutrophils/100 WBC (Bld) 65 % 38 - 82 % [facility] Stomatocytes LM Ql (Bld) Slight Abnormal (none) [facility] No Panel Informationon 08-08 Interpretation and review of laboratory results Abnormal [facility] Interpretation and review of laboratory results Abnormal [facility] Basophils Manual 1 [facility] Eosinophils Manual 3 High 0 - 1 [facility] Interpretation and review of laboratory results Abnormal [facility] Lymphocytes Manual 27 [facility] Monocytes Manual 4 [facility] Neutrophils Manual 65 [facility] Basic metabolic 1998 panelon 08-08-2023 Anion gap [Moles/Vol] 6 mmol/L 3 - 13 mmol/L [facility] Calcium [Mass/Vol] 9.2 mg/dL 8.4 - 10. 4 mg/dL [facility] Chloride [Moles/Vol] 103 mmol/L 98 - 10 7 mmol/L [facility] [facility] CO2 [Moles/Vol] 35 mmol/L High 22 - 30 mmol/L [facility] Creatinine [Mass/Vol] 1.16 mg/dL High 0.52 - 1.04 mg/dL [facility] GFR/1.73 sq M.predicted MDRD (S/P/Bld) [Vol rate/Area] 49.6 mL/min/{1.73_m2} Low - PINF [facility] Glucose [Mass/Vol] 161 mg/dL High 70 - 100 mg/dL [facility] Interpretation and review of laboratory results Abnormal [facility] Potassium [Moles/Vol] 3.8 mmol/L 3.5 - 5.1 mmol/L [facility] Sodium [Moles/Vol] 144 mmol/L 135 - 145 mmol/L [facility] Urea nitrogen [Mass/Vol] 68 mg/dL High 7 - 17 mg/dL [facility] CBC W Auto Differential pane l (Bld)on 08-08-2023 Basophils (Bld) [#/Vol] 0.0 10*3/uL 0.0 - 0.2 10*3/uL [facility] Basophils/100 WBC (Bld) 0.4 % 0.0 - 2.0 % [facility] Eosinophils (Bld) [#/Vol] 0.4 10*3/uL 0.0 - 0.5 10*3/uL [facility] Eosinophils/100 WBC (Bld) 6.0 % 0.0 - 6.0 % [facility] Erythrocyte distribution width (RBC) [Ratio] 14.9 % 11.5 - 15.0 % [facility] Hematocrit (Bld) [Volume fraction] 29.2 % Low 35.0 - 47.0 % [facility] Hemoglobin (Bld) [Mass/Vol] 8.9 g/dL Low 11.7 - 16.0 g/dL [facility] Immature granulocytes (Bld) [#/Vol] 0.3 10*3/uL High NINF - 0.1 10*3/uL [facility] Immature granulocytes/100 WBC (Bld) 3.9 % High 0.0 - 2.0 % [facility] Interpretation and review of laboratory results Abnormal [facility] Lymphocytes (Bld) [#/Vol] 2.1 10*3/uL 1.0 - 4.3 10*3/uL [facility] Lymphocytes/100 WBC (Bld) 31.2 % 15.0 - 45.0 % [facility] MCH (RBC) [Entitic mass] 33.2 pg 26.0 - 34.0 pg [facility] MCHC (RBC) [Mass/Vol] 30.5 % 30.5 - 36.0 % [facility] MCV (RBC) [Entitic vol] 109.0 fL High 77.0 - 99.0 fL [facility] Monocytes (Bld) [#/Vol] 0.6 10*3/uL 0.0 - 0.9 10*3/uL [facility] Monocytes/100 WBC (Bld) 8.7 % 5.0 - 13.0 % [facility] Neutrophils (Bld) [#/Vol] 3.3 10*3/uL 1.8 - 7.5 10*3/uL [facility] Neutrophils/100 WBC (Bld) 49.8 % 38.0 - 82.0 % [facility] Nucleated RBC/100 WBC (Bld) [Ratio] 0.0 % [facility] Platelet mean volume (Bld) [Entitic vol] 12.2 fL 9.0 - 12.7 fL [facility] Platelets (Bld) [#/Vol] 240 10*3/uL 140 - 440 10*3/uL [facility] RBC (Bld) [#/Vol] 2.68 10*6/uL Low 3.80 - 5.2 0 10*6/uL [facility] WBC (Bld) [#/Vol] 6.7 10*3/uL 3.6 - 10.7 10*3/uL [facility] Laboratory - Chemistry and C hemistry - challengeon 08-08-2023 Glucose [Mass/Vol] 173 mg/dL High 70 - 100 mg/dL [facility] Glucose [Mass/Vol] 123 mg/dL High 70 - 100 mg/dL [facility] Glucose [Mass/Vol] 129 mg/dL High 70 - 100 mg/dL [facility] Cobalamin (Vitamin B12) [Mass/Vol] 436 pg/mL 239 - 931 pg/mL [facility] Folate [Mass/Vol] 6.2 ng/mL 2.9 - PINF ng/mL [facility] Glucose [Mass/Vol] 147 mg/dL High 70 - 100 mg/dL [facility] No Panel Informationon 08-07 Interpretation and review of laboratory results Abnormal [facility] Interpretation and review of laboratory results Abnormal [facility] Interpretation and review of laboratory results Abnormal [facility] Interpretation and review of laboratory results Normal [facility] Interpretation and review of laboratory results Abnormal [facility] Bacteria identified Cx Nom ( Bld)on 08-07-2023 Interpretation and review of laboratory results Normal [facility] Basic metabolic 1998 panelon 08-07-2023 Anion gap [Moles/Vol] 10 mmol/L 3 - 13 mmol/L [facility] Calcium [Mass/Vol] 9.2 mg/dL 8.4 - 10. 4 mg/dL [facility] Chloride [Moles/Vol] 101 mmol/L 98 - 10 7 mmol/L [facility] [employer] CO2 [Moles/Vol] 33 mmol/L High 22 - 30 mmol/L [facility] Creatinine [Mass/Vol] 1.11 mg/dL High 0.52 - 1.04 mg/dL [facility] GFR/1.73 sq M.predicted MDRD (S/P/Bld) [Vol rate/Area] 52.3 mL/min/{1.73_m2} Low - PINF [facility] Glucose [Mass/Vol] 127 mg/dL High 70 - 100 mg/dL [facility] Potassium [Moles/Vol] 3.7 mmol/L 3.5 - 5.1 mmol/L [facility] Sodium [Moles/Vol] 144 mmol/L 135 - 145 mmol/L [facility] Urea nitrogen [Mass/Vol] 70 mg/dL High 7 - 17 mg/dL [facility] CBC W Auto Differential pane l (Bld)Ordered By: Digna Hernandez on 08-07-2023 Erythrocyte distribution width (RBC) [Ratio] 14.6 % 11.5 - 15.0 % [facility] Hematocrit (Bld) [Volume fraction] 27.9 % Low 35.0 - 47.0 % [facility] Hemoglobin (Bld) [Mass/Vol] 8.6 g/dL Low 11.7 - 16.0 g/dL [facility] MCH (RBC) [Entitic mass] 33.7 pg 26.0 - 34.0 pg [facility] MCHC (RBC) [Mass/Vol] 30.8 % 30.5 - 36.0 % [facility] MCV (RBC) [Entitic vol] 109.4 fL High 77.0 - 99.0 fL [facility] Platelet mean volume (Bld) [Entitic vol] 12.4 fL 9.0 - 12.7 fL [facility] Platelets (Bld) [#/Vol] 205 10*3/uL 140 - 440 10*3/uL [facility] RBC (Bld) [#/Vol] 2.55 10*6/uL Low 3.80 - 5.2 0 10*6/uL [facility] WBC (Bld) [#/Vol] 7.0 10*3/uL 3.6 - 10.7 10*3/uL [facility] Hepatic function 2000 panelo n 08-07-2023 Albumin [Mass/Vol] 3.9 g/dL 3.5 - 5.0 g/dL [facility] ALP [Catalytic activity/Vol] 45 U/L 38 - 126 U/L [facility] ALT [Catalytic activity/Vol] 13 U/L 0 - 34 U/L [facility] AST [Catalytic activity/Vol] 22 U/L 15 - 46 U/L [facility] Bilirubin [Mass/Vol] 0.7 mg/dL 0.2 - 1 .3 mg/dL [facility] Bilirubin.conjugated [Mass/Vol] 0.0 mg/dL 0.0 - 0.3 mg/dL [facility] Protein [Mass/Vol] 6.1 g/dL Low 6.3 - 8.2 g/dL [facility] Laboratory - Chemistry and C hemistry - challengeon 08-07-2023 Glucose [Mass/Vol] 188 mg/dL High 70 - 100 mg/dL [facility] Glucose [Mass/Vol] 148 mg/dL High 70 - 100 mg/dL [facility] Glucose [Mass/Vol] 169 mg/dL High 70 - 100 mg/dL [facility] Glucose [Mass/Vol] 91 mg/dL 70 - 100 mg/dL [facility] Glucose [Mass/Vol] 82 mg/dL 70 - 100 mg/dL [facility] Laboratory - Hematology and Cell countson 08-07-2023 Anisocytosis Ql (Bld) Rare Abnormal (none) [facility] Band form neutrophils (Bld) [#/Vol] 0.1 10*3/uL High NINF - 0.0 10*3/uL [facility] Band form neutrophils/100 WBC (Bld) 1 % High NINF - 0 % [facility] Eosinophils (Bld) [#/Vol] 0.3 10*3/uL 0.0 - 0.5 10*3/uL [facility] Eosinophils/100 WBC (Bld) 4 % 0 - 6 % [facility] Lymphocytes (Bld) [#/Vol] 2.0 10*3/uL 1.0 - 4.3 10*3/uL [facility] Lymphocytes/100 WBC (Bld) 29 % 15 - 45 % [facility] Macrocytes Ql (Bld) Slight Abnormal (none) [facility] Monocytes (Bld) [#/Vol] 0.4 10*3/uL 0.0 - 0.9 10*3/uL [facility] Monocytes/100 WBC (Bld) 5 % 5 - 13 % [facility] Myelocytes (Bld) [#/Vol] 0.1 10*3/uL High NINF - 0.0 10*3/uL [facility] Myelocytes/100 WBC (Bld) 2 % High NINF - 0 % [facility] Neutrophils (Bld) [#/Vol] 4.2 10*3/uL 1.8 - 7.5 10*3/uL [facility] Poikilocytosis LM Ql (Bld) Rare Abnormal (none) [facility] Polychromasia LM Ql (Bld) Rare Abnormal (none) [facility] RBC morphology finding Nom (Bld) abnormal [facility] Segmented neutrophils/100 WBC (Bld) 59 % 38 - 82 % [facility] Stomatocytes LM Ql (Bld) Slight Abnormal (none) [facility] Laboratory - Microbiology an d Antimicrobial susceptibilityon 08-07-2023 Bacteria identified Cx Nom (Bld) No growth at 5 days [facility] No Panel Informationon 08-06 Interpretation and review of laboratory results Abnormal [facility] Interpretation and review of laboratory results Abnormal [facility] Interpretation and review of laboratory results Abnormal [facility] Interpretation and review of laboratory results Normal [facility] Interpretation and review of laboratory results Normal [facility] Bands Manual 1 [facility] Eosinophils Manual 4 High 0 - 1 [facility] Interpretation and review of laboratory results Abnormal [facility] Lymphocytes Manual 29 [facility] Monocytes Manual 5 [facility] Myelocytes Manual 2 [facility] Neutrophils Manual 60 [facility] Interpretation and review of laboratory results Abnormal [facility] aPTT Coag (Bld) [Time]on aPTT Coag (PPP) [Time] 53.9 s High 20.0 - 30.5 s [facility] Interpretation and review of laboratory results Abnormal [facility] Basic metabolic 1998 panelon 08-06-2023 Anion gap [Moles/Vol] 12 mmol/L 3 - 13 mmol/L [facility] Calcium [Mass/Vol] 9.2 mg/dL 8.4 - 10. 4 mg/dL [facility] Chloride [Moles/Vol] 101 mmol/L 98 - 10 7 mmol/L [facility] CO2 [Moles/Vol] 31 mmol/L High 22 - 30 mmol/L [facility] Creatinine [Mass/Vol] 1.09 mg/dL High 0.52 - 1.04 mg/dL [facility] [employer] GFR/1.73 sq M.predicted MDRD (S/P/Bld) [Vol rate/Area] 53.4 mL/min/{1.73_m2} Low - PINF [facility] Glucose [Mass/Vol] 149 mg/dL High 70 - 100 mg/dL [facility] [employer] Interpretation and review of laboratory results Abnormal [facility] [employer] Potassium [Moles/Vol] 3.8 mmol/L 3.5 - 5.1 mmol/L [facility] [employer] Sodium [Moles/Vol] 144 mmol/L 135 - 145 mmol/L [facility] [employer] Urea nitrogen [Mass/Vol] 71 mg/dL High 7 - 17 mg/dL [facility] Anion gap [Moles/Vol] 8 mmol/L 3 - 13 mmol/L [facility] Calcium [Mass/Vol] 9.0 mg/dL 8.4 - 10. 4 mg/dL [facility] [employer] Chloride [Moles/Vol] 104 mmol/L 98 - 10 7 mmol/L [facility] [employer] CO2 [Moles/Vol] 33 mmol/L High 22 - 30 mmol/L [facility] Creatinine [Mass/Vol] 1.11 mg/dL High 0.52 - 1.04 mg/dL [facility] [employer] GFR/1.73 sq M.predicted MDRD (S/P/Bld) [Vol rate/Area] 52.3 mL/min/{1.73_m2} Low - PINF [facility] Glucose [Mass/Vol] 136 mg/dL High 70 - 100 mg/dL [facility] [employer] Potassium [Moles/Vol] 3.9 mmol/L 3.5 - 5.1 mmol/L [facility] Sodium [Moles/Vol] 145 mmol/L 135 - 145 mmol/L [facility] [employer] Urea nitrogen [Mass/Vol] 71 mg/dL High 7 - 17 mg/dL [facility] [employer] CBC W Auto Differential pane l (Bld)on 08-06-2023 Erythrocyte distribution width (RBC) [Ratio] 14.6 % 11.5 - 15.0 % [facility] Hematocrit (Bld) [Volume fraction] 22.4 % Low 35.0 - 47.0 % [facility] Hemoglobin (Bld) [Mass/Vol] 7.0 g/dL Low 11.7 - 16.0 g/dL [facility] Interpretation and review of laboratory results Abnormal [facility] MCH (RBC) [Entitic mass] 33.7 pg 26.0 - 34.0 pg [facility] MCHC (RBC) [Mass/Vol] 31.3 % 30.5 - 36.0 % [facility] MCV (RBC) [Entitic vol] 107.7 fL High 77.0 - 99.0 fL [facility] Platelet mean volume (Bld) [Entitic vol] 12.2 fL 9.0 - 12.7 fL [facility] Platelets (Bld) [#/Vol] 119 10*3/uL Low 140 - 440 10*3/uL [facility] RBC (Bld) [#/Vol] 2.08 10*6/uL Low 3.80 - 5.2 0 10*6/uL [facility] WBC (Bld) [#/Vol] 4.5 10*3/uL 3.6 - 10.7 10*3/uL [facility] CBC panel Auto (Bld)Ordered By: Simona Larios on 08-06-2023 Erythrocyte distribution width (RBC) [Ratio] 14.7 % 11.5 - 15.0 % [facility] Hematocrit (Bld) [Volume fraction] 26.4 % Low 35.0 - 47.0 % [facility] Hemoglobin (Bld) [Mass/Vol] 8.2 g/dL Low 11.7 - 16.0 g/dL [facility] Interpretation and review of laboratory results Abnormal [facility] MCH (RBC) [Entitic mass] 33.5 pg 26.0 - 34.0 pg [facility] MCHC (RBC) [Mass/Vol] 31.1 % 30.5 - 36.0 % [facility] MCV (RBC) [Entitic vol] 107.8 fL High 77.0 - 99.0 fL [facility] Platelet mean volume (Bld) [Entitic vol] 12.7 fL 9.0 - 12.7 fL [facility] Platelets (Bld) [#/Vol] 176 10*3/uL 140 - 440 10*3/uL [facility] RBC (Bld) [#/Vol] 2.45 10*6/uL Low 3.80 - 5.2 0 10*6/uL [facility] WBC (Bld) [#/Vol] 8.5 10*3/uL 3.6 - 10.7 10*3/uL [facility] Hepatic function 2000 panelo n 08-06-2023 Albumin [Mass/Vol] 3.7 g/dL 3.5 - 5.0 g/dL [facility] ALP [Catalytic activity/Vol] 36 U/L Low 38 - 126 U/L [facility] ALT [Catalytic activity/Vol] 12 U/L 0 - 34 U/L [facility] AST [Catalytic activity/Vol] 19 U/L 15 - 46 U/L [facility] Bilirubin [Mass/Vol] 0.6 mg/dL 0.2 - 1 .3 mg/dL [facility] Bilirubin.conjugated [Mass/Vol] 0.0 mg/dL 0.0 - 0.3 mg/dL [facility] Protein [Mass/Vol] 5.8 g/dL Low 6.3 - 8.2 g/dL [facility] Laboratory - Chemistry and C hemistry - challengeon 08-06-2023 Glucose [Mass/Vol] 176 mg/dL High 70 - 100 mg/dL [facility] Glucose [Mass/Vol] 107 mg/dL High 70 - 100 mg/dL [facility] Glucose [Mass/Vol] 141 mg/dL High 70 - 100 mg/dL [facility] Magnesium [Mass/Vol] 2.2 mg/dL 1.6 - 2 .3 mg/dL [facility] Laboratory - Hematology and Cell countson 08-06-2023 Eosinophils (Bld) [#/Vol] 0.2 10*3/uL 0.0 - 0.5 10*3/uL [facility] Eosinophils/100 WBC (Bld) 5 % 0 - 6 % [facility] Lymphocytes (Bld) [#/Vol] 1.4 10*3/uL 1.0 - 4.3 10*3/uL [facility] Lymphocytes/100 WBC (Bld) 30 % 15 - 45 % [facility] Metamyelocytes (Bld) [#/Vol] 0.0 10*3/uL NINF - 0.0 10*3/uL [facility] Metamyelocytes/100 WBC (Bld) 1 % High NINF - 0 % [facility] Monocytes (Bld) [#/Vol] 0.2 10*3/uL 0.0 - 0.9 10*3/uL [facility] Monocytes/100 WBC (Bld) 5 % 5 - 13 % [facility] Neutrophils (Bld) [#/Vol] 2.6 10*3/uL 1.8 - 7.5 10*3/uL [facility] Nucleated RBC/100 WBC (Bld) [Ratio] 1 % 0 - 2 % [facility] RBC morphology finding Nom (Bld) Normal [facility] Segmented neutrophils/100 WBC (Bld) 57 % 38 - 82 % [facility] Variant lymphocytes (Bld) [#/Vol] 0.0 10*3/uL NINF - 0.0 10*3/uL [facility] Variant lymphocytes/100 WBC (Bld) 1 % High NINF - 0 % [facility] No Panel Informationon 08-05 Interpretation and review of laboratory results Abnormal [facility] Radiology Study observation (narrative) [facility] Interpretation and review of laboratory results Abnormal [facility] Interpretation and review of laboratory results Abnormal [facility] Atypical Lymphocytes Manual 1 [facility] Eosinophils Manual 5 High 0 - 1 [facility] Interpretation and review of laboratory results Abnormal [facility] Lymphocytes Manual 29 [facility] Metamyelocytes Manual [address] [facility] Monocytes Manual 5 [facility] Neutrophils Manual 55 [facility] Interpretation and review of laboratory results Normal [facility] Interpretation and review of laboratory results Abnormal [facility] No Panel InformationOrdered By: Yolanda Barr on 08-06-2023 [facility] Work Phone: Phosphate [Moles/Vol]on Phosphate [Mass/Vol] 3.7 mg/dL 2.5 - 4 .5 mg/dL [facility] aPTT Coag (Bld) [Time]on aPTT Coag (PPP) [Time] 58.2 s High 20.0 - 30.5 s [facility] Interpretation and review of laboratory results Abnormal [facility] aPTT Coag (PPP) [Time] 50.7 s High 20.0 - 30.5 s [facility] Interpretation and review of laboratory results Abnormal [facility] aPTT Coag (PPP) [Time] 47.5 s High 20.0 - 30.5 s [facility] Interpretation and review of laboratory results Abnormal [facility] aPTT Coag (PPP) [Time] 96.8 s High 20.0 - 30.5 s [facility] Interpretation and review of laboratory results Abnormal [facility] Basic metabolic 1998 panelon 08-05-2023 Anion gap [Moles/Vol] 9 mmol/L 3 - 13 mmol/L [facility] Calcium [Mass/Vol] 8.8 mg/dL 8.4 - 10. 4 mg/dL [facility] Chloride [Moles/Vol] 102 mmol/L 98 - 10 7 mmol/L [facility] CO2 [Moles/Vol] 30 mmol/L 22 - 30 mmol/L [facility] Creatinine [Mass/Vol] 1.09 mg/dL High 0.52 - 1.04 mg/dL [facility] GFR/1.73 sq M.predicted MDRD (S/P/Bld) [Vol rate/Area] 53.4 mL/min/{1.73_m2} Low - PINF [facility] Glucose [Mass/Vol] 207 mg/dL High 70 - 100 mg/dL [facility] Interpretation and review of laboratory results Abnormal [facility] Potassium [Moles/Vol] 4.2 mmol/L 3.5 - 5.1 mmol/L [facility] Sodium [Moles/Vol] 141 mmol/L 135 - 145 mmol/L [facility] Urea nitrogen [Mass/Vol] 72 mg/dL High 7 - 17 mg/dL [facility] Anion gap [Moles/Vol] 9 mmol/L 3 - 13 mmol/L [facility] Calcium [Mass/Vol] 8.8 mg/dL 8.4 - 10. 4 mg/dL [facility] Chloride [Moles/Vol] 105 mmol/L 98 - 10 7 mmol/L [facility] CO2 [Moles/Vol] 29 mmol/L 22 - 30 mmol/L [facility] Creatinine [Mass/Vol] 1.09 mg/dL High 0.52 - 1.04 mg/dL [facility] [employer] GFR/1.73 sq M.predicted MDRD (S/P/Bld) [Vol rate/Area] 53.4 mL/min/{1.73_m2} Low - PINF [facility] [employer] Glucose [Mass/Vol] 154 mg/dL High 70 - 100 mg/dL [facility] [employer] Potassium [Moles/Vol] 4.0 mmol/L 3.5 - 5.1 mmol/L [facility] [employer] Sodium [Moles/Vol] 143 mmol/L 135 - 145 mmol/L [facility] [employer] Urea nitrogen [Mass/Vol] 74 mg/dL High 7 - 17 mg/dL [facility] [employer] CBC W Auto Differential pane l (Bld)on 08-05-2023 Erythrocyte distribution width (RBC) [Ratio] 14.5 % 11.5 - 15.0 % [facility] [employer] Hematocrit (Bld) [Volume fraction] 24.1 % Low 35.0 - 47.0 % [facility] Hemoglobin (Bld) [Mass/Vol] 7.8 g/dL Low 11.7 - 16.0 g/dL [facility] MCH (RBC) [Entitic mass] 34.4 pg High 26.0 - 34.0 pg [facility] MCHC (RBC) [Mass/Vol] 32.4 % 30.5 - 36.0 % [facility] MCV (RBC) [Entitic vol] 106.2 fL High 77.0 - 99.0 fL [facility] [employer] Platelet mean volume (Bld) [Entitic vol] 13.0 fL High 9.0 - 12.7 fL [facility] [employer] Platelets (Bld) [#/Vol] 103 10*3/uL Low 140 - 440 10*3/uL [facility] RBC (Bld) [#/Vol] 2.27 10*6/uL Low 3.80 - 5.2 0 10*6/uL [facility] [employer] WBC (Bld) [#/Vol] 6.0 10*3/uL 3.6 - 10.7 10*3/uL [facility] [employer] Hepatic function 2000 panelo n 08-05-2023 Albumin [Mass/Vol] 3.5 g/dL 3.5 - 5.0 g/dL [facility] ALP [Catalytic activity/Vol] 45 U/L 38 - 126 U/L [facility] ALT [Catalytic activity/Vol] 12 U/L 0 - 34 U/L [facility] AST [Catalytic activity/Vol] 17 U/L 15 - 46 U/L [facility] Bilirubin [Mass/Vol] 0.5 mg/dL 0.2 - 1 .3 mg/dL [facility] Bilirubin.conjugated [Mass/Vol] 0.0 mg/dL 0.0 - 0.3 mg/dL [facility] Protein [Mass/Vol] 5.8 g/dL Low 6.3 - 8.2 g/dL [facility] Laboratory - Chemistry and C hemistry - challengeon 08-05-2023 Glucose [Mass/Vol] 210 mg/dL High 70 - 100 mg/dL [facility] Glucose [Mass/Vol] 271 mg/dL High 70 - 100 mg/dL [facility] Magnesium [Mass/Vol] 2.0 mg/dL 1.6 - 2 .3 mg/dL [facility] Glucose [Mass/Vol] 127 mg/dL High 70 - 100 mg/dL [facility] Glucose [Mass/Vol] 174 mg/dL High 70 - 100 mg/dL [facility] Magnesium [Mass/Vol] 2.1 mg/dL 1.6 - 2 .3 mg/dL [facility] Laboratory - Hematology and Cell countson 08-05-2023 Basophils (Bld) [#/Vol] 0.1 10*3/uL 0.0 - 0.2 10*3/uL [facility] Basophils/100 WBC (Bld) 1 % 0 - 2 % [facility] Eosinophils (Bld) [#/Vol] 0.2 10*3/uL 0.0 - 0.5 10*3/uL [facility] Eosinophils/100 WBC (Bld) 3 % 0 - 6 % [facility] Hypochromia Ql (Bld) Rare Abnormal (none) [facility] Lymphocytes (Bld) [#/Vol] 2.8 10*3/uL 1.0 - 4.3 10*3/uL [facility] Lymphocytes/100 WBC (Bld) 46 % High 15 - 45 % [facility] Monocytes (Bld) [#/Vol] 0.2 10*3/uL 0.0 - 0.9 10*3/uL [facility] Monocytes/100 WBC (Bld) 4 % Low 5 - 13 % [facility] Neutrophils (Bld) [#/Vol] 2.6 10*3/uL 1.8 - 7.5 10*3/uL [facility] Promyelocytes (Bld) [#/Vol] 0.1 10*3/uL High NINF - 0.0 10*3/uL [facility] [place] Promyelocytes/100 WBC (Bld) 2 % High NINF - 0 % [facility] RBC morphology finding Nom (Bld) abnormal [facility] Segmented neutrophils/100 WBC (Bld) 44 % 38 - 82 % [facility] Stomatocytes LM Ql (Bld) Slight Abnormal (none) [facility] No Panel Informationon 08-04 Interpretation and review of laboratory results Abnormal [facility] Interpretation and review of laboratory results Abnormal [facility] Interpretation and review of laboratory results Normal [facility] Interpretation and review of laboratory results Abnormal [facility] Interpretation and review of laboratory results Abnormal [facility] Basophils Manual 1 [facility] Eosinophils Manual 3 High 0 - 1 [facility] Interpretation and review of laboratory results Abnormal [facility] Lymphocytes Manual 46 [facility] Monocytes Manual 4 [facility] Neutrophils Manual 44 [facility] Promyelocytes Manual 2 [facility] Interpretation and review of laboratory results Abnormal [facility] Interpretation and review of laboratory results Normal [facility] Phosphate [Moles/Vol]on Phosphate [Mass/Vol] 3.5 mg/dL 2.5 - 4 .5 mg/dL [facility] Phosphate [Mass/Vol] 2.9 mg/dL 2.5 - 4 .5 mg/dL [facility] XR Chest Single viewon 08-04 [facility] Radiology Study observation (narrative) [facility] aPTT Coag (Bld) [Time]on aPTT Coag (PPP) [Time] 66.1 s High 20.0 - 30.5 s [facility] Interpretation and review of laboratory results Abnormal [facility] aPTT Coag (PPP) [Time] 53.5 s High 20.0 - 30.5 s [facility] Interpretation and review of laboratory results Abnormal [facility] aPTT Coag (PPP) [Time] 48.1 s High 20.0 - 30.5 s [facility] Interpretation and review of laboratory results Abnormal [facility] Bacteria identified Cx Nom ( Bld)on 08-04-2023 Interpretation and review of laboratory results Normal [facility] Basic metabolic 1998 panelon 08-04-2023 Anion gap [Moles/Vol] 7 mmol/L 3 - 13 mmol/L [facility] Calcium [Mass/Vol] 8.6 mg/dL 8.4 - 10. 4 mg/dL [facility] Chloride [Moles/Vol] 106 mmol/L 98 - 10 7 mmol/L [facility] CO2 [Moles/Vol] 28 mmol/L 22 - 30 mmol/L [facility] Creatinine [Mass/Vol] 1.16 mg/dL High 0.52 - 1.04 mg/dL [facility] GFR/1.73 sq M.predicted MDRD (S/P/Bld) [Vol rate/Area] 49.6 mL/min/{1.73_m2} Low - PINF [facility] Glucose [Mass/Vol] 208 mg/dL High 70 - 100 mg/dL [facility] Interpretation and review of laboratory results Abnormal [facility] Potassium [Moles/Vol] 3.5 mmol/L 3.5 - 5.1 mmol/L [facility] Sodium [Moles/Vol] 141 mmol/L 135 - 145 mmol/L [facility] Urea nitrogen [Mass/Vol] 73 mg/dL High 7 - 17 mg/dL [facility] Anion gap [Moles/Vol] 8 mmol/L 3 - 13 mmol/L [facility] Calcium [Mass/Vol] 8.3 mg/dL Low 8.4 - 10. 4 mg/dL [facility] Chloride [Moles/Vol] 105 mmol/L 98 - 10 7 mmol/L [facility] CO2 [Moles/Vol] 27 mmol/L 22 - 30 mmol/L [facility] Creatinine [Mass/Vol] 1.15 mg/dL High 0.52 - 1.04 mg/dL [facility] GFR/1.73 sq M.predicted MDRD (S/P/Bld) [Vol rate/Area] 50.1 mL/min/{1.73_m2} Low - PINF [facility] Glucose [Mass/Vol] 256 mg/dL High 70 - 100 mg/dL [facility] Potassium [Moles/Vol] 4.0 mmol/L 3.5 - 5.1 mmol/L [facility] Sodium [Moles/Vol] 140 mmol/L 135 - 145 mmol/L [facility] Urea nitrogen [Mass/Vol] 71 mg/dL High 7 - 17 mg/dL [facility] Blood type and Crossmatch pa jakob (Bld)on 08-04-2023 ABO group Nom (Bld) A [facility] Blood group antibody screen GEL Ql Negative [facility] D Ag Ql (RBC) Positive [facility] CBC W Auto Differential pane l (Bld)on 08-04-2023 Erythrocyte distribution width (RBC) [Ratio] 14.4 % 11.5 - 15.0 % [facility] Hematocrit (Bld) [Volume fraction] 23.9 % Low 35.0 - 47.0 % [facility] Hemoglobin (Bld) [Mass/Vol] 7.7 g/dL Low 11.7 - 16.0 g/dL [facility] [employer] IPF 7 [facility] MCH (RBC) [Entitic mass] 33.9 pg 26.0 - 34.0 pg [facility] MCHC (RBC) [Mass/Vol] 32.2 % 30.5 - 36.0 % [facility] MCV (RBC) [Entitic vol] 105.3 fL High 77.0 - 99.0 fL [facility] Platelet mean volume (Bld) [Entitic vol] 12.3 fL 9.0 - 12.7 fL [facility] Platelets (Bld) [#/Vol] 71 10*3/uL Low 140 - 440 10*3/uL [facility] RBC (Bld) [#/Vol] 2.27 10*6/uL Low 3.80 - 5.2 0 10*6/uL [facility] WBC (Bld) [#/Vol] 3.6 10*3/uL 3.6 - 10.7 10*3/uL [facility] CBC panel Auto (Bld)on 08-03 Erythrocyte distribution width (RBC) [Ratio] 14.4 % 11.5 - 15.0 % [facility] Hematocrit (Bld) [Volume fraction] 23.8 % Low 35.0 - 47.0 % [facility] Hemoglobin (Bld) [Mass/Vol] 7.5 g/dL Low 11.7 - 16.0 g/dL [facility] Interpretation and review of laboratory results Abnormal [facility] IPF 10 [facility] MCH (RBC) [Entitic mass] 33.6 pg 26.0 - 34.0 pg [facility] MCHC (RBC) [Mass/Vol] 31.5 % 30.5 - 36.0 % [facility] MCV (RBC) [Entitic vol] 106.7 fL High 77.0 - 99.0 fL [facility] Platelet mean volume (Bld) [Entitic vol] 12.4 fL 9.0 - 12.7 fL [facility] Platelets (Bld) [#/Vol] 88 10*3/uL Low 140 - 440 10*3/uL [facility] RBC (Bld) [#/Vol] 2.23 10*6/uL Low 3.80 - 5.2 0 10*6/uL [facility] WBC (Bld) [#/Vol] 5.1 10*3/uL 3.6 - 10.7 10*3/uL [facility] Calcium.ionized [Moles/Vol]o n 08-04-2023 Calcium.ionized (Bld) [Moles/Vol] 4.20 mg/dL Low 4.30 - 5.20 mg/dL [facility] Interpretation and review of laboratory results Abnormal [facility] PH, IONIZED CALCIUM 7.49 High 7.31 - 7.46 [facility] Hepatic function 2000 panelo n 08-04-2023 Albumin [Mass/Vol] 3.4 g/dL Low 3.5 - 5.0 g/dL [facility] ALP [Catalytic activity/Vol] 51 U/L 38 - 126 U/L [facility] ALT [Catalytic activity/Vol] 13 U/L 0 - 34 U/L [facility] AST [Catalytic activity/Vol] 15 U/L 15 - 46 U/L [facility] Bilirubin [Mass/Vol] 0.5 mg/dL 0.2 - 1 .3 mg/dL [facility] Bilirubin.conjugated [Mass/Vol] 0.0 mg/dL 0.0 - 0.3 mg/dL [facility] Protein [Mass/Vol] 5.7 g/dL Low 6.3 - 8.2 g/dL [facility] Laboratory - Chemistry and C hemistry - challengeon 08-04-2023 Glucose [Mass/Vol] 202 mg/dL High 70 - 100 mg/dL [facility] Glucose [Mass/Vol] 223 mg/dL High 70 - 100 mg/dL [facility] Magnesium [Mass/Vol] 2.1 mg/dL 1.6 - 2 .3 mg/dL [facility] Glucose [Mass/Vol] 254 mg/dL High 70 - 100 mg/dL [facility] Glucose [Mass/Vol] 349 mg/dL High 70 - 100 mg/dL [facility] Magnesium [Mass/Vol] 2.1 mg/dL 1.6 - 2 .3 mg/dL [facility] Laboratory - Drug toxicology on 08-04-2023 Vancomycin trough [Mass/Vol] 30.2 ug/mL High 15.0 - 20.0 ug/mL [facility] Laboratory - Hematology and Cell countson 08-04-2023 Basophils (Bld) [#/Vol] 0.0 10*3/uL 0.0 - 0.2 10*3/uL [facility] Basophils/100 WBC (Bld) 1 % 0 - 2 % [facility] Eosinophils (Bld) [#/Vol] 0.0 10*3/uL 0.0 - 0.5 10*3/uL [facility] Eosinophils/100 WBC (Bld) 1 % 0 - 6 % [facility] Lymphocytes (Bld) [#/Vol] 0.8 10*3/uL Low 1.0 - 4.3 10*3/uL [facility] Lymphocytes/100 WBC (Bld) 23 % 15 - 45 % [facility] Monocytes (Bld) [#/Vol] 0.4 10*3/uL 0.0 - 0.9 10*3/uL [facility] Monocytes/100 WBC (Bld) 12 % 5 - 13 % [facility] [employer] Myelocytes (Bld) [#/Vol] 0.0 10*3/uL NINF - 0.0 10*3/uL [facility] Myelocytes/100 WBC (Bld) 1 % High NINF - 0 % [facility] Neutrophils (Bld) [#/Vol] 2.3 10*3/uL 1.8 - 7.5 10*3/uL [facility] Nucleated RBC/100 WBC (Bld) [Ratio] 1 % 0 - 2 % [facility] RBC morphology finding Nom (Bld) Normal [facility] Segmented neutrophils/100 WBC (Bld) 63 % 38 - 82 % [facility] Laboratory - Microbiology an d Antimicrobial susceptibilityon 08-04-2023 Bacteria identified Cx Nom (Bld) No growth at 5 days [facility] No Panel Informationon 08-03 Interpretation and review of laboratory results Abnormal [facility] Interpretation and review of laboratory results Abnormal [facility] Interpretation and review of laboratory results Normal [facility] Interpretation and review of laboratory results Abnormal [facility] Interpretation and review of laboratory results Abnormal [facility] Basophils Manual 1 [facility] Eosinophils Manual 1 0 - 1 [facility] Interpretation and review of laboratory results Abnormal [facility] Lymphocytes Manual 23 [facility] Monocytes Manual 12 [facility] Myelocytes Manual 1 [facility] Neutrophils Manual 64 [facility] Interpretation and review of laboratory results Normal [facility] Interpretation and review of laboratory results Abnormal [facility] Phosphate [Moles/Vol]on Phosphate [Mass/Vol] 3.1 mg/dL 2.5 - 4 .5 mg/dL [facility] Phosphate [Mass/Vol] 3.1 mg/dL 2.5 - 4 .5 mg/dL [facility] Vancomycin trough [Mass/Vol] on 08-04-2023 Interpretation and review of laboratory results Abnormal [facility] XR Chest Single viewon 08-03 [facility] Radiology Study observation (narrative) [facility] aPTT Coag (Bld) [Time]on aPTT Coag (PPP) [Time] 57.2 s High 20.0 - 30.5 s [facility] Interpretation and review of laboratory results Abnormal [facility] Bacteria identified Aer cx N om (Lower resp)Ordered By: Kriss Davis on 08-03-2023 Gram Stain Result Few Polymorphonuclea r leukocytes per low power field [facility] Gram Stain Result Few Epithelial cells per low power field [facility] Gram Stain Result No organisms seen [facility] Bacteria identified Cx Nom ( Bld)Ordered By: Adwoa Jefferson on 08-03-2023 Interpretation and review of laboratory results Abnormal [facility] Basic metabolic 1998 panelon 08-03-2023 Anion gap [Moles/Vol] 9 mmol/L 3 - 13 mmol/L [facility] Calcium [Mass/Vol] 8.3 mg/dL Low 8.4 - 10. 4 mg/dL [facility] Chloride [Moles/Vol] 104 mmol/L 98 - 10 7 mmol/L [facility] CO2 [Moles/Vol] 29 mmol/L 22 - 30 mmol/L [facility] Creatinine [Mass/Vol] 1.27 mg/dL High 0.52 - 1.04 mg/dL [facility] GFR/1.73 sq M.predicted MDRD (S/P/Bld) [Vol rate/Area] 44.5 mL/min/{1.73_m2} Low - PINF [facility] Glucose [Mass/Vol] 227 mg/dL High 70 - 100 mg/dL [facility] Interpretation and review of laboratory results Abnormal [facility] Potassium [Moles/Vol] 3.4 mmol/L Low 3.5 - 5.1 mmol/L [facility] Sodium [Moles/Vol] 142 mmol/L 135 - 145 mmol/L [facility] Urea nitrogen [Mass/Vol] 72 mg/dL High 7 - 17 mg/dL [facility] Anion gap [Moles/Vol] 12 mmol/L 3 - 13 mmol/L [facility] Calcium [Mass/Vol] 8.3 mg/dL Low 8.4 - 10. 4 mg/dL [facility] Chloride [Moles/Vol] 103 mmol/L 98 - 10 7 mmol/L [facility] CO2 [Moles/Vol] 25 mmol/L 22 - 30 mmol/L [facility] Creatinine [Mass/Vol] 1.36 mg/dL High 0.52 - 1.04 mg/dL [facility] GFR/1.73 sq M.predicted MDRD (S/P/Bld) [Vol rate/Area] 41.0 mL/min/{1.73_m2} Low - PINF [facility] Glucose [Mass/Vol] 234 mg/dL High 70 - 100 mg/dL [facility] Potassium [Moles/Vol] 4.0 mmol/L 3.5 - 5.1 mmol/L [facility] Sodium [Moles/Vol] 140 mmol/L 135 - 145 mmol/L [facility] Urea nitrogen [Mass/Vol] 67 mg/dL High 7 - 17 mg/dL [facility] Anion gap [Moles/Vol] 9 mmol/L 3 - 13 mmol/L [facility] Calcium [Mass/Vol] 8.4 mg/dL 8.4 - 10. 4 mg/dL [facility] Chloride [Moles/Vol] 105 mmol/L 98 - 10 7 mmol/L [facility] CO2 [Moles/Vol] 27 mmol/L 22 - 30 mmol/L [facility] Creatinine [Mass/Vol] 1.27 mg/dL High 0.52 - 1.04 mg/dL [facility] GFR/1.73 sq M.predicted MDRD (S/P/Bld) [Vol rate/Area] 44.5 mL/min/{1.73_m2} Low - PINF [facility] Glucose [Mass/Vol] 216 mg/dL High 70 - 100 mg/dL [facility] Interpretation and review of laboratory results Abnormal [facility] Potassium [Moles/Vol] 4.0 mmol/L 3.5 - 5.1 mmol/L [facility] Sodium [Moles/Vol] 141 mmol/L 135 - 145 mmol/L [facility] Urea nitrogen [Mass/Vol] 70 mg/dL High 7 - 17 mg/dL [facility] CBC W Auto Differential pane l (Bld)on 08-03-2023 Basophils (Bld) [#/Vol] 0.0 10*3/uL 0.0 - 0.2 10*3/uL [facility] Basophils/100 WBC (Bld) 0.2 % 0.0 - 2.0 % [facility] Eosinophils (Bld) [#/Vol] 0.0 10*3/uL 0.0 - 0.5 10*3/uL [facility] Eosinophils/100 WBC (Bld) 0.2 % 0.0 - 6.0 % [facility] Erythrocyte distribution width (RBC) [Ratio] 14.6 % 11.5 - 15.0 % [facility] Hematocrit (Bld) [Volume fraction] 25.7 % Low 35.0 - 47.0 % [facility] Hemoglobin (Bld) [Mass/Vol] 8.2 g/dL Low 11.7 - 16.0 g/dL [facility] [employer] Immature granulocytes (Bld) [#/Vol] 0.0 10*3/uL NINF - 0.1 10*3/uL [facility] [employer] Immature granulocytes/100 WBC (Bld) 0.6 % 0.0 - 2.0 % [facility] [employer] Interpretation and review of laboratory results Abnormal [facility] [employer] IPF 8 [facility] [employer] Lymphocytes (Bld) [#/Vol] 0.7 10*3/uL Low 1.0 - 4.3 10*3/uL [facility] [employer] Lymphocytes/100 WBC (Bld) 12.1 % Low 15.0 - 45.0 % [facility] [employer] MCH (RBC) [Entitic mass] 33.5 pg 26.0 - 34.0 pg [facility] [employer] MCHC (RBC) [Mass/Vol] 31.9 % 30.5 - 36.0 % [facility] [employer] MCV (RBC) [Entitic vol] 104.9 fL High 77.0 - 99.0 fL [facility] [employer] Monocytes (Bld) [#/Vol] 0.3 10*3/uL 0.0 - 0.9 10*3/uL [facility] [employer] Monocytes/100 WBC (Bld) 6.4 % 5.0 - 13.0 % [facility] [employer] Neutrophils (Bld) [#/Vol] 4.3 10*3/uL 1.8 - 7.5 10*3/uL [facility] [employer] Neutrophils/100 WBC (Bld) 80.5 % 38.0 - 82.0 % [facility] [employer] Nucleated RBC/100 WBC (Bld) [Ratio] 0.0 % [facility] [employer] Platelet mean volume (Bld) [Entitic vol] 12.7 fL 9.0 - 12.7 fL [facility] [employer] Platelets (Bld) [#/Vol] 72 10*3/uL Low 140 - 440 10*3/uL [facility] [employer] RBC (Bld) [#/Vol] 2.45 10*6/uL Low 3.80 - 5.2 0 10*6/uL [facility] [employer] WBC (Bld) [#/Vol] 5.4 10*3/uL 3.6 - 10.7 10*3/uL [facility] [employer] CT Abdomen WO contraston [facility] CT Abdomen WO contrastOrdere d By: Leonor Cardona on 08-03-2023 [facility] Work Phone: CT Chest WO contraston 08-02 [facility] Calcium.ionized [Moles/Vol]o n 08-03-2023 Calcium.ionized (Bld) [Moles/Vol] 4.40 mg/dL 4.30 - 5.20 mg/dL [facility] Interpretation and review of laboratory results Normal [facility] PH, IONIZED CALCIUM 7.36 7.31 - 7.46 [facility] Calcium.ionized (Bld) [Moles/Vol] 4.30 mg/dL 4.30 - 5.20 mg/dL [facility] Interpretation and review of laboratory results Normal [facility] PH, IONIZED CALCIUM 7.40 7.31 - 7.46 [facility] Calcium.ionized (Bld) [Moles/Vol] 4.30 mg/dL 4.30 - 5.20 mg/dL [facility] Interpretation and review of laboratory results Normal [facility] PH, IONIZED CALCIUM 7.43 7.31 - 7.46 [facility] Calcium.ionized (Bld) [Moles/Vol] 4.20 mg/dL Low 4.30 - 5.20 mg/dL [facility] Interpretation and review of laboratory results Abnormal [facility] PH, IONIZED CALCIUM 7.44 7.31 - 7.46 [facility] Hepatic function 2000 panelo n 08-03-2023 Albumin [Mass/Vol] 3.2 g/dL Low 3.5 - 5.0 g/dL [facility] ALP [Catalytic activity/Vol] 59 U/L 38 - 126 U/L [facility] ALT [Catalytic activity/Vol] 15 U/L 0 - 34 U/L [facility] AST [Catalytic activity/Vol] 18 U/L 15 - 46 U/L [facility] Bilirubin [Mass/Vol] 0.5 mg/dL 0.2 - 1 .3 mg/dL [facility] Bilirubin.conjugated [Mass/Vol] 0.0 mg/dL 0.0 - 0.3 mg/dL [facility] Protein [Mass/Vol] 5.7 g/dL Low 6.3 - 8.2 g/dL [facility] Laboratory - Chemistry and C hemistry - challengeon 08-03-2023 Glucose [Mass/Vol] 276 mg/dL High 70 - 100 mg/dL [facility] Glucose [Mass/Vol] 302 mg/dL High 70 - 100 mg/dL [facility] Glucose [Mass/Vol] 290 mg/dL High 70 - 100 mg/dL [facility] Magnesium [Mass/Vol] 2.0 mg/dL 1.6 - 2 .3 mg/dL [facility] Glucose [Mass/Vol] 265 mg/dL High 70 - 100 mg/dL [facility] Procalcitonin [Mass/Vol] 17.21 ng/mL High 0.00 - 0.09 ng/mL [facility] Glucose [Mass/Vol] 334 mg/dL High 70 - 100 mg/dL [facility] Magnesium [Mass/Vol] 2.1 mg/dL 1.6 - 2 .3 mg/dL [facility] Magnesium [Mass/Vol] 2.0 mg/dL 1.6 - 2 .3 mg/dL [facility] Laboratory - Microbiology an d Antimicrobial susceptibilityOrdered By: Adwoa Jefferson on 08-03-2023 Bacteria identified Cx Nom (Bld) Escherichia coli Critically abnormal [facility] Laboratory - Microbiology an d Antimicrobial susceptibilityOrdered By: Kriss Davis on 08-03-2023 Bacteria identified Aer cx Nom (Lower resp) No growth of normal respiratory gaby. [facility] No Panel Informationon 08-02 Interpretation and review of laboratory results Abnormal [facility] Interpretation and review of laboratory results Abnormal [facility] Interpretation and review of laboratory results Abnormal [facility] Interpretation and review of laboratory results Normal [facility] Interpretation and review of laboratory results Abnormal [facility] Extra Tube Hold for add-ons. [facility] Interpretation and review of laboratory results Abnormal [facility] Interpretation and review of laboratory results Abnormal [facility] Interpretation and review of laboratory results Normal [facility] Interpretation and review of laboratory results Normal [facility] No Panel InformationOrdered By: Ashli Waldrop on 08-03-2023 INTERPRETATION (PF4) Negative Negative [facility] PLATELET AB, HEPARIN 0.109 NINF [facility] Phosphate [Moles/Vol]on Phosphate [Mass/Vol] 3.3 mg/dL 2.5 - 4 .5 mg/dL [facility] Phosphate [Mass/Vol] 3.3 mg/dL 2.5 - 4 .5 mg/dL [facility] Phosphate [Mass/Vol] 3.2 mg/dL 2.5 - 4 .5 mg/dL [facility] Procalcitonin [Mass/Vol]on 08-03-2023 Interpretation and review of laboratory results Abnormal [facility] US Abdomen limitedon 024 [facility] Radiology Study observation (narrative) [facility] aPTT Coag (Bld) [Time]on aPTT Coag (PPP) [Time] 56.1 s High 20.0 - 30.5 s [facility] Interpretation and review of laboratory results Abnormal [facility] aPTT Coag (PPP) [Time] 57.8 s High 20.0 - 30.5 s [facility] Interpretation and review of laboratory results Abnormal [facility] aPTT Coag (PPP) [Time] 55.2 s High 20.0 - 30.5 s [facility] Interpretation and review of laboratory results Abnormal [facility] ANTI PLT FACTOR 4 ABon 08-01 Heparin induced platelet IgG Carlos (S) [Interp] Negative Normal Negative [facility] Comment on above: Order Comment: Hermelindo serna Type: BLOOD SPECIMEN Ordering Facility: [facility] Address: [facility], [place] [address] Result Comment: No a nti-platelet factor 4 IgG antibody is detected by TONI assay. Heparin-induced thrombocytopenia (HIT) is unlikely, but should be excluded based on clinical factors. Performed By: #### P LATF4 #### [facility] CLIA [id number] [address] [place], [place] [id number] [place] Platelet factor 4 Qn (PPP) 0.109 OD Normal <0.400 [facility] Comment on above: Order Comment: Hermelindo serna Type: BLOOD SPECIMEN Ordering Facility: [facility] Address: [facility], [place] [address] Result Comment: Not calculated Performed By: #### P LATF4 #### [facility] CLIA [id number] [address] [place] [address] [place] Bacteria identified Cx Nom ( U)Ordered By: Ashish Lambert on 08-02-2023 Interpretation and review of laboratory results Abnormal [facility] [employer] [facility] [employer] Basic metabolic 1998 panelon 08-02-2023 Anion gap [Moles/Vol] 10 mmol/L 3 - 13 mmol/L [facility] [employer] Calcium [Mass/Vol] 8.4 mg/dL 8.4 - 10. 4 mg/dL [facility] Chloride [Moles/Vol] 106 mmol/L 98 - 10 7 mmol/L [facility] CO2 [Moles/Vol] 25 mmol/L 22 - 30 mmol/L [facility] [employer] Creatinine [Mass/Vol] 1.41 mg/dL High 0.52 - 1.04 mg/dL [facility] [employer] GFR/1.73 sq M.predicted MDRD (S/P/Bld) [Vol rate/Area] 39.2 mL/min/{1.73_m2} Low - PINF [facility] [employer] Glucose [Mass/Vol] 106 mg/dL High 70 - 100 mg/dL [facility] Interpretation and review of laboratory results Abnormal [facility] [employer] Potassium [Moles/Vol] 4.1 mmol/L 3.5 - 5.1 mmol/L [facility] [employer] Sodium [Moles/Vol] 141 mmol/L 135 - 145 mmol/L [facility] [employer] Urea nitrogen [Mass/Vol] 67 mg/dL High 7 - 17 mg/dL [facility] [employer] Anion gap [Moles/Vol] 7 mmol/L 3 - 13 mmol/L [facility] [employer] Calcium [Mass/Vol] 8.3 mg/dL Low 8.4 - 10. 4 mg/dL [facility] [employer] Chloride [Moles/Vol] 106 mmol/L 98 - 10 7 mmol/L [facility] CO2 [Moles/Vol] 27 mmol/L 22 - 30 mmol/L [facility] [employer] Creatinine [Mass/Vol] 1.46 mg/dL High 0.52 - 1.04 mg/dL [facility] [employer] GFR/1.73 sq M.predicted MDRD (S/P/Bld) [Vol rate/Area] 37.6 mL/min/{1.73_m2} Low - PINF [facility] Glucose [Mass/Vol] 152 mg/dL High 70 - 100 mg/dL [facility] Interpretation and review of laboratory results Abnormal [facility] Potassium [Moles/Vol] 4.0 mmol/L 3.5 - 5.1 mmol/L [facility] Sodium [Moles/Vol] 140 mmol/L 135 - 145 mmol/L [facility] Urea nitrogen [Mass/Vol] 66 mg/dL High 7 - 17 mg/dL [facility] Anion gap [Moles/Vol] 5 mmol/L 3 - 13 mmol/L [facility] Calcium [Mass/Vol] 8.3 mg/dL Low 8.4 - 10. 4 mg/dL [facility] Chloride [Moles/Vol] 107 mmol/L 98 - 10 7 mmol/L [facility] CO2 [Moles/Vol] 27 mmol/L 22 - 30 mmol/L [facility] Creatinine [Mass/Vol] 1.42 mg/dL High 0.52 - 1.04 mg/dL [facility] GFR/1.73 sq M.predicted MDRD (S/P/Bld) [Vol rate/Area] 38.9 mL/min/{1.73_m2} Low - PINF [facility] Glucose [Mass/Vol] 141 mg/dL High 70 - 100 mg/dL [facility] Interpretation and review of laboratory results Abnormal [facility] Potassium [Moles/Vol] 4.1 mmol/L 3.5 - 5.1 mmol/L [facility] Sodium [Moles/Vol] 139 mmol/L 135 - 145 mmol/L [facility] Urea nitrogen [Mass/Vol] 65 mg/dL High 7 - 17 mg/dL [facility] Anion gap [Moles/Vol] 8 mmol/L 3 - 13 mmol/L [facility] CBC W Auto Differential pane l (Bld)Ordered By: Abdi Hernandez on 08-02-2023 Erythrocyte distribution width (RBC) [Ratio] 14.6 % 11.5 - 15.0 % [facility] Hematocrit (Bld) [Volume fraction] 26.4 % Low 35.0 - 47.0 % [facility] Hemoglobin (Bld) [Mass/Vol] 8.7 g/dL Low 11.7 - 16.0 g/dL [facility] Interpretation and review of laboratory results Abnormal [facility] IPF 7 [facility] MCH (RBC) [Entitic mass] 34.3 pg High 26.0 - 34.0 pg [facility] MCHC (RBC) [Mass/Vol] 33.0 % 30.5 - 36.0 % [facility] MCV (RBC) [Entitic vol] 103.9 fL High 77.0 - 99.0 fL [facility] Platelet mean volume (Bld) [Entitic vol] 11.9 fL 9.0 - 12.7 fL [facility] Platelets (Bld) [#/Vol] 74 10*3/uL Low 140 - 440 10*3/uL [facility] RBC (Bld) [#/Vol] 2.54 10*6/uL Low 3.80 - 5.2 0 10*6/uL [facility] WBC (Bld) [#/Vol] 8.2 10*3/uL 3.6 - 10.7 10*3/uL [facility] CK [Catalytic activity/Vol]o n 08-02-2023 Interpretation and review of laboratory results Normal [facility] CT Abdomen WO contraston Radiology Study observation (narrative) [facility] CT Chest WO contraston 08-01 Radiology Study observation (narrative) [facility] Calcium.ionized [Moles/Vol]o n 08-02-2023 Calcium.ionized (Bld) [Moles/Vol] 4.30 mg/dL 4.30 - 5.20 mg/dL [facility] Interpretation and review of laboratory results Normal [facility] PH, IONIZED CALCIUM 7.44 7.31 - 7.46 [facility] Calcium.ionized (Bld) [Moles/Vol] 4.40 mg/dL 4.30 - 5.20 mg/dL [facility] Interpretation and review of laboratory results Normal [facility] PH, IONIZED CALCIUM 7.39 7.31 - 7.46 [facility] Calcium.ionized (Bld) [Moles/Vol] 4.40 mg/dL 4.30 - 5.20 mg/dL [facility] Interpretation and review of laboratory results Normal [facility] PH, IONIZED CALCIUM 7.41 7.31 - 7.46 [facility] - Chemistry and C hemistry - challengeon 08-02-2023 Glucose [Mass/Vol] 247 mg/dL High 70 - 100 mg/dL [facility] Glucose [Mass/Vol] 144 mg/dL High 70 - 100 mg/dL [facility] Glucose [Mass/Vol] 112 mg/dL High 70 - 100 mg/dL [facility] Glucose [Mass/Vol] 98 mg/dL 70 - 100 mg/dL [facility] Magnesium [Mass/Vol] 2.1 mg/dL 1.6 - 2 .3 mg/dL [facility] Glucose [Mass/Vol] 129 mg/dL High 70 - 100 mg/dL [facility] Glucose [Mass/Vol] 134 mg/dL High 70 - 100 mg/dL [facility] Glucose [Mass/Vol] 136 mg/dL High 70 - 100 mg/dL [facility] Glucose [Mass/Vol] 151 mg/dL High 70 - 100 mg/dL [facility] Glucose [Mass/Vol] 149 mg/dL High 70 - 100 mg/dL [facility] Glucose [Mass/Vol] 160 mg/dL High 70 - 100 mg/dL [facility] Magnesium [Mass/Vol] 2.1 mg/dL 1.6 - 2 .3 mg/dL [facility] Glucose [Mass/Vol] 165 mg/dL High 70 - 100 mg/dL [facility] Glucose [Mass/Vol] 158 mg/dL High 70 - 100 mg/dL [facility] Glucose [Mass/Vol] 138 mg/dL High 70 - 100 mg/dL [facility] Prolactin [Mass/Vol] 28.9 ng/mL 3.0 - 3 5.0 ng/mL [facility] CK [Catalytic activity/Vol] 84 U/L 30 - 170 U/L [facility] Glucose [Mass/Vol] 127 mg/dL High 70 - 100 mg/dL [facility] Glucose [Mass/Vol] 128 mg/dL High 70 - 100 mg/dL [facility] Glucose [Mass/Vol] 139 mg/dL High 70 - 100 mg/dL [facility] Magnesium [Mass/Vol] 2.0 mg/dL 1.6 - 2 .3 mg/dL [facility] Glucose [Mass/Vol] 124 mg/dL High 70 - 100 mg/dL [facility] Glucose [Mass/Vol] 161 mg/dL High 70 - 100 mg/dL [facility] Glucose [Mass/Vol] 128 mg/dL High 70 - 100 mg/dL [facility] Base excess Calc (Bld) [Moles/Vol] 0.4 mmol/L -3.0 - 3.0 mmol/L [facility] CO2 (Bld) [Partial pressure] 38.5 mm[Hg] [facility] HCO3 (Bld) [Moles/Vol] 24.8 mmol/L 21.0 - 25.0 mmol/L [facility] Oxygen (Bld) [Partial pressure] 87.1 mm[Hg] [facility] pH (Bld) 7.417 [pH] 7.350 - 7.450 pH [facility] Glucose [Mass/Vol] 138 mg/dL High 70 - 100 mg/dL [facility] Glucose [Mass/Vol] 160 mg/dL High 70 - 100 mg/dL [facility] Glucose [Mass/Vol] 169 mg/dL High 70 - 100 mg/dL [facility] Laboratory - Coagulationon 0 08-02-2023 aPTT Coag (PPP) [Time] 47.7 s High 20.0 - 30.5 s [facility] INR Coag (PPP) [Relative time] 1.1 {INR} 0.9 - 1.1 [facility] PT Coag (Bld) [Time] 11.4 s 9.0 - 1 2.0 s [facility] Laboratory - Hematology and Cell countson 08-02-2023 Band form neutrophils (Bld) [#/Vol] 0.3 10*3/uL High NINF - 0.0 10*3/uL [facility] Band form neutrophils/100 WBC (Bld) 4 % High NINF - 0 % [facility] Lymphocytes (Bld) [#/Vol] 0.6 10*3/uL Low 1.0 - 4.3 10*3/uL [facility] Lymphocytes/100 WBC (Bld) 7 % Low 15 - 45 % [facility] Monocytes (Bld) [#/Vol] 0.1 10*3/uL 0.0 - 0.9 10*3/uL [facility] Monocytes/100 WBC (Bld) 1 % Low 5 - 13 % [facility] Neutrophils (Bld) [#/Vol] 7.5 10*3/uL 1.8 - 7.5 10*3/uL [facility] RBC morphology finding Nom (Bld) Normal [facility] Segmented neutrophils/100 WBC (Bld) 88 % High 38 - 82 % [facility] Laboratory - Microbiology an d Antimicrobial susceptibilityOrdered By: Ashish Lambert on 08-02-2023 Bacteria identified Cx Nom (U) Normal urogenital gaby present [facility] Bacteria identified Cx Nom (U) 50,000-90,000 CFU/mL Escherichia coli Abnormal [facility] No Panel Informationon 08-01 Interpretation and review of laboratory results Abnormal [facility] Interpretation and review of laboratory results Abnormal [facility] Interpretation and review of laboratory results Abnormal [facility] Interpretation and review of laboratory results Normal [facility] Interpretation and review of laboratory results Normal [facility] Interpretation and review of laboratory results Abnormal [facility] Interpretation and review of laboratory results Abnormal [facility] Interpretation and review of laboratory results Abnormal [facility] Interpretation and review of laboratory results Abnormal [facility] Interpretation and review of laboratory results Abnormal [facility] Interpretation and review of laboratory results Abnormal [facility] Interpretation and review of laboratory results Normal [facility] Interpretation and review of laboratory results Abnormal [facility] Interpretation and review of laboratory results Abnormal [facility] Interpretation and review of laboratory results Abnormal [facility] Interpretation and review of laboratory results Normal [facility] Interpretation and review of laboratory results Abnormal [facility] Interpretation and review of laboratory results Abnormal [facility] Interpretation and review of laboratory results Abnormal [facility] Interpretation and review of laboratory results Normal [facility] Interpretation and review of laboratory results Abnormal [facility] Interpretation and review of laboratory results Abnormal [facility] Bands Manual 4 [facility] Interpretation and review of laboratory results Abnormal [facility] Lymphocytes Manual 7 [facility] Monocytes Manual 1 [facility] Neutrophils Manual 87 [facility] Interpretation and review of laboratory results Abnormal [facility] Interpretation and review of laboratory results Abnormal [facility] FIO2 30 [facility] Interpretation and review of laboratory results Abnormal [facility] Interpretation and review of laboratory results Abnormal [facility] Interpretation and review of laboratory results Abnormal [facility] Phosphate [Moles/Vol]on Phosphate [Mass/Vol] 3.1 mg/dL 2.5 - 4 .5 mg/dL [facility] Phosphate [Mass/Vol] 3.1 mg/dL 2.5 - 4 .5 mg/dL [facility] Phosphate [Mass/Vol] 3.1 mg/dL 2.5 - 4 .5 mg/dL [facility] XR Chest Single viewon 08-01 [facility] [place] [facility] RADIOLOG[facility] Radiology Study observation (narrative) [facility] XR Chest Single viewOrdered By: Paige Browne on 08-02-2023 [facility] aPTT Coag (Bld) [Time]on aPTT Coag (PPP) [Time] 49.7 s High 20.0 - 30.5 s [facility] Interpretation and review of laboratory results Abnormal [facility] aPTT Coag (PPP) [Time] 48.8 s High 20.0 - 30.5 s [facility] Interpretation and review of laboratory results Abnormal [facility] Laboratory - Chemistry and C hemistry - challengeon 01-11-2023 Glucose [Mass/Vol] 203 mg/dL High 70 - 100 mg/dL [facility] Glucose [Mass/Vol] 195 mg/dL High 70 - 100 mg/dL [facility] Glucose [Mass/Vol] 181 mg/dL High 70 - 100 mg/dL [facility] No Panel Informationon 01-11 Interpretation and review of laboratory results Abnormal [facility] Performed by: [facility], [address] [facility], [facility] [address] CLIA ID: [id number] [facility] Interpretation and review of laboratory results Abnormal [facility] Performed by: [facility], [address] [place], [facility] [address] CLIA ID: [id number] [facility] Interpretation and review of laboratory results Abnormal [facility] Performed by: [facility], [address] [place] [id number] CLIA ID: [id number] [facility] Laboratory - Chemistry and C hemistry - challengeon 01-10-2023 Glucose [Mass/Vol] 226 mg/dL High 70 - 100 mg/dL [facility] Glucose [Mass/Vol] 165 mg/dL High 70 - 100 mg/dL [facility] Glucose [Mass/Vol] 198 mg/dL High 70 - 100 mg/dL [facility] Glucose [Mass/Vol] 178 mg/dL High 70 - 100 mg/dL [facility] No Panel Informationon 01-10 Interpretation and review of laboratory results Abnormal [facility] Performed by: [facility], [address] [place] [address] CLIA ID: [id number] [facility] Interpretation and review of laboratory results Abnormal [facility] Performed by: [facility], [address] [place] [address] CLIA ID: [id number] [facility] Interpretation and review of laboratory results Abnormal [facility] Performed by: [facility], [address] [place] [address] CLIA ID: [id number] [facility] Interpretation and review of laboratory results Abnormal [facility] Performed by: [facility], [address] [place] [address] CLIA ID: [id number] [facility] Bacteria identified Cx Nom ( U)Ordered By: Theresa Solano on 01-09-2023 Interpretation and review of laboratory results Normal [facility] Laboratory - Chemistry and C hemistry - challengeon 01-09-2023 Glucose [Mass/Vol] 229 mg/dL High 70 - 100 mg/dL [facility] Glucose [Mass/Vol] 202 mg/dL High 70 - 100 mg/dL [facility] Laboratory - Microbiology an d Antimicrobial susceptibilityOrdered By: Theresa Solano on 01-09-2023 Bacteria identified Cx Nom (U) Multiple species present; probable contamination; repeat suggested [facility] No Panel Informationon 01-09 Interpretation and review of laboratory results Abnormal [facility] Performed by: [facility], [address] [place] [address] CLIA ID: [id number] [facility] Interpretation and review of laboratory results Abnormal [facility] Performed by: [facility], [address] [place] [address], [facility] [address] CLIA ID: [id number] [facility] CBC W Auto Differential pane l (Bld)Ordered By: Torres Bhatia on 01-08-2023 Basophils (Bld) [#/Vol] 0.0 10*3/uL 0.0 - 0.2 10*3/uL [facility] Basophils/100 WBC (Bld) 0.5 % 0.0 - 2.0 % [facility] Eosinophils (Bld) [#/Vol] 0.2 10*3/uL 0.0 - 0.5 10*3/uL [facility] Eosinophils/100 WBC (Bld) 4.1 % 1.0 - 6.0 % [facility] Erythrocyte distribution width (RBC) [Ratio] 14.6 % High 11.5 - 14.5 % [facility] Hematocrit (Bld) [Volume fraction] 34.0 % Low 35.0 - 47.0 % [facility] Hemoglobin (Bld) [Mass/Vol] 11.5 g/dL Low 11.7 - 16.0 g/dL [facility] Interpretation and review of laboratory results Abnormal [facility] Lymphocytes (Bld) [#/Vol] 2.0 10*3/uL 1.0 - 4.3 10*3/uL [facility] Lymphocytes/100 WBC (Bld) 32.6 % 20.0 - 40.0 % [facility] MCH (RBC) [Entitic mass] 33.0 pg 26.0 - 34.0 pg [facility] MCHC (RBC) [Mass/Vol] 33.6 % 32.0 - 36.0 % [facility] MCV (RBC) [Entitic vol] 98.1 fL High 80.0 - 98.0 fL [facility] Monocytes (Bld) [#/Vol] 0.4 10*3/uL 0.0 - 0.8 10*3/uL [facility] Monocytes/100 WBC (Bld) 6.7 % 2.0 - 10.0 % [facility] Neutrophils (Bld) [#/Vol] 3.4 10*3/uL 1.8 - 7.0 10*3/uL [facility] Neutrophils/100 WBC (Bld) 56.1 % 40.0 - 80.0 % [facility] [employer] Nucleated RBC/100 WBC (Bld) [Ratio] 0.1 % [facility] [employer] Platelet mean volume (Bld) [Entitic vol] 9.3 fL 7.4 - 12.4 fL [facility] [employer] Platelets (Bld) [#/Vol] 173 10*3/uL 140 - 440 10*3/uL [facility] [employer] RBC (Bld) [#/Vol] 3.47 10*6/uL Low 3.8 - 5.20 10*6/uL [facility] [employer] WBC (Bld) [#/Vol] 6.1 10*3/uL 3.6 - 10.7 10*3/uL [facility] CT Cervical spine WO contras ton 01-08-2023 1. No acute abnormal ity identified throughout the cervical spine. 2. Cervical spondylosis particularly from C4-C5 through C6-C7 3. MRI would probably be indicated for further evaluation Report Dictated on Electronically Signed By: Ramone Beckett MD Electronically Signed Date/Time: 01/08/2023 5:23 AM [facility] Patient Name: SALAZAR SANCHEZ : 1950 [facility]#: [id number] Exam Date/Time: 01/08/2023 04:50 Procedure: CT CERVICAL SPINE WO IV CONTRAST Ordering Provider: CHAMPION DUSTIN Reason For Exam: right neck pain, right arm paresthesia CT CERVICAL SPINE: CLINICAL INDICATION: Neck pain and right upper extremity paresthesia TECHNIQUE: Transaxial sequence through the cervical spine. Coronal and sagittal reconstructions included. Dose reduction was employed with automated exposure control. COMPARISON: None FINDINGS: Exam quality: The study is limited due to the patient's body habitus. Cervical vertebrae and joints: There is smooth reversal of normal lordosis. No fracture or subluxation is noted. Generalized facet hypertrophy is noted including fusion on the left at C3-C4. Uncovertebral joints are unremarkable. No bone lesion. Intervertebral disc spaces and spinal canal: Spurring and disc space narrowing at and C4-C5, C5-C6 and C6-C7. Moderate bony spinal stenosis at C4-C5, C5-C6 and C6-C7. Soft tissues: Surrounding soft tissues of the neck are unremarkable on this noncontrast study. Other: Lung apices are unremarkable. [facility] Ramone Beckett MD - 01/08/2023 [facility] 1950 [id number] Exam Date/Time: 01/08/2023 04:50 Procedure: CT CERVICAL SPINE WO IV CONTRAST Ordering Provider: CHAMPION DUSTIN Reason For Exam: right neck pain, right arm paresthesia CT CERVICAL SPINE: CLINICAL INDICATION: Neck pain and right upper extremity paresthesia TECHNIQUE: Transaxial sequence through the cervical spine. Coronal and sagittal reconstructions included. Dose reduction was employed with automated exposure control. COMPARISON: None FINDINGS: Exam quality: The study is limited due to the patient's body habitus. Cervical vertebrae and joints: There is smooth reversal of normal lordosis. No fracture or subluxation is noted. Generalized facet hypertrophy is noted including fusion on the left at C3-C4. Uncovertebral joints are unremarkable. No bone lesion. Intervertebral disc spaces and spinal canal: Spurring and disc space narrowing at and C4-C5, C5-C6 and C6-C7. Moderate bony spinal stenosis at C4-C5, C5-C6 and C6-C7. Soft tissues: Surrounding soft tissues of the neck are unremarkable on this noncontrast study. Other: Lung apices are unremarkable. IMPRESSION: 1. No acute abnormality identified throughout the cervical spine. 2. Cervical spondylosis particularly from C4-C5 through C6-C7 3. MRI would probably be indicated for further evaluation Report Dictated on Electronically Signed By: Ramone Beckett MD Electronically Signed Date/Time: 01/08/2023 5:23 AM EDT [facility] Study observation (narrative) [facility] CT Cervical spine WO contras tOrdered By: Ramone Beckett on 01-08-2023 [facility] Work Phone: Comprehensive metabolic 1998 panelon 01-08-2023 Albumin [Mass/Vol] 3.6 g/dL 3.5 - 5.0 g/dL [facility] ALP [Catalytic activity/Vol] 93 U/L 38 - 126 U/L [facility] ALT [Catalytic activity/Vol] 20 U/L 0 - 34 U/L [facility] Anion gap [Moles/Vol] 7 mmol/L 3 - 13 mmol/L [facility] AST [Catalytic activity/Vol] 29 U/L 15 - 46 U/L [facility] Bilirubin [Mass/Vol] 0.4 mg/dL 0.2 - 1 .3 mg/dL [facility] Calcium [Mass/Vol] 8.6 mg/dL 8.4 - 10. 4 mg/dL [facility] Chloride [Moles/Vol] 99 mmol/L 98 - 10 7 mmol/L [facility] CO2 [Moles/Vol] 32 mmol/L High 22 - 30 mmol/L [facility] Creatinine [Mass/Vol] 1.22 mg/dL High 0.52 - 1.04 mg/dL [facility] GFR/1.73 sq M.predicted MDRD (S/P/Bld) [Vol rate/Area] 46.7 mL/min/{1.73_m2} Low - PINF [facility] Comment on above: Calculation based on the Chronic Kidney Disease Epidemiology Collaboration (CKD-EPI) equation refit without adjustment for race Glucose [Mass/Vol] 243 mg/dL High 70 - 100 mg/dL [facility] Potassium [Moles/Vol] 5.2 mmol/L High 3.5 - 5.1 mmol/L [facility] Protein [Mass/Vol] 7.4 g/dL 6.3 - 8.2 g/dL [facility] Sodium [Moles/Vol] 138 mmol/L 135 - 145 mmol/L [facility] Urea nitrogen [Mass/Vol] 53 mg/dL High 7 - 17 mg/dL [facility] Laboratory - Chemistry and C hemistry - challengeon 01-08-2023 Glucose [Mass/Vol] 278 mg/dL High 70 - 100 mg/dL [facility] Glucose [Mass/Vol] 232 mg/dL High 70 - 100 mg/dL [facility] Lactate [Moles/Vol] 1.9 mmol/L 0.7 - 2. 0 mmol/L [facility] Lactate [Moles/Vol] 2.2 mmol/L High 0.7 - 2. 0 mmol/L [facility] MR Cervical spine WO contras ton 01-08-2023 Impression: 1. Mild cervical kyphosis. Partial osseous fusion C5-C6. 2. Moderate discogenic and facet degenerative changes with small left paracentral disc herniation C4-C5. There is moderate cord compression C4-C5 and mild cord compression C5-C6 and C6-C7 along with moderate spinal canal stenosis. Significant neuroforaminal narrowing as above most pronounced moderate to severe on the right at C4-C5. Report Dictated on Electronically Signed By: Orville Culver MD Electronically Signed Date/Time: 01/08/2023 4:11 PM T [facility] Patient Name: SALAZAR SANCHEZ : 1950 Exam Date/Time: 01/08/2023 14:58 Procedure: MR CERVICAL SPINE WO CONTRAST Ordering Provider: LU PRAMOD Reason For Exam: Neck pain, acute, prior cervical surgery Examination: MRI cervical spine Clinical Indication: Neck pain, acute, prior cervical surgery Comparison: None Findings: Multiplanar multisequence high field MRI images were obtained through the cervical spine without intravenous gadolinium. The cervical spine demonstrates minimal kyphosis. No significant listhesis. The cervical spine demonstrates grossly normal signal intensity. Vertebral heights appear grossly maintained. There is no abnormal signal within the spinal cord. There is partial osseous fusion C5-C6. Craniocervical and atlantoaxial articulations demonstrate mild degenerative sclerosis with small osteophytes. C2-C3: No evidence of disc bulge or protrusion. There is a small endplate osteophyte left of midline which causes minimal impingement on the ventral thecal sac. No spinal canal stenosis. Minimal left neuroforaminal narrowing. C3-C4: Tiny endplate osteophytes. Facet degenerative hypertrophy left greater than right. Mild spinal canal and moderate foraminal stenosis. C4-C5: 0.3 cm left paracentral disc protrusion along with uncovertebral hypertrophy. Moderate left cord compression and moderate spinal canal and moderate left and moderate to severe right neuroforaminal narrowing. C5-C6: Posterior disc osteophyte complex. Small endplate osteophytes posteriorly. Mild cord compression and moderate spinal canal and foraminal stenosis. C6-C7: Small posterior disc osteophyte complex. Disc contacts minimally flattening the ventral cord. Xjza-eg-fkzbrfne spinal canal stenosis along with moderate right and mild left neuroforaminal narrowing. C7-T1: No evidence of disc bulge or protrusion. No spinal canal stenosis. No neuroforaminal narrowing. Inferior aspect of the right mastoid sinus contains a mucus retention cyst or polyp measuring 1.5 cm. [facility] Orville Culver MD - 01/08/2023 [facility] : 1950 [id number] Exam Date/Time: 01/08/2023 14:58 Procedure: MR CERVICAL SPINE WO CONTRAST Ordering Provider: LU PRAMOD Reason For Exam: Neck pain, acute, prior cervical surgery Examination: MRI cervical spine Clinical Indication: Neck pain, acute, prior cervical surgery Comparison: None Findings: Multiplanar multisequence high field MRI images were obtained through the cervical spine without intravenous gadolinium. The cervical spine demonstrates minimal kyphosis. No significant listhesis. The cervical spine demonstrates grossly normal signal intensity. Vertebral heights appear grossly maintained. There is no abnormal signal within the spinal cord. There is partial osseous fusion C5-C6. Craniocervical and atlantoaxial articulations demonstrate mild degenerative sclerosis with small osteophytes. C2-C3: No evidence of disc bulge or protrusion. There is a small endplate osteophyte left of midline which causes minimal impingement on the ventral thecal sac. No spinal canal stenosis. Minimal left neuroforaminal narrowing. C3-C4: Tiny endplate osteophytes. Facet degenerative hypertrophy left greater than right. Mild spinal canal and moderate foraminal stenosis. C4-C5: 0.3 cm left paracentral disc protrusion along with uncovertebral hypertrophy. Moderate left cord compression and moderate spinal canal and moderate left and moderate to severe right neuroforaminal narrowing. C5-C6: Posterior disc osteophyte complex. Small endplate osteophytes posteriorly. Mild cord compression and moderate spinal canal and foraminal stenosis. C6-C7: Small posterior disc osteophyte complex. Disc contacts minimally flattening the ventral cord. Lppd-ly-gwehszvu spinal canal stenosis along with moderate right and mild left neuroforaminal narrowing. C7-T1: No evidence of disc bulge or protrusion. No spinal canal stenosis. No neuroforaminal narrowing. Inferior aspect of the right mastoid sinus contains a mucus retention cyst or polyp measuring 1.5 cm. IMPRESSION: Impression: 1. Mild cervical kyphosis. Partial osseous fusion C5-C6. 2. Moderate discogenic and facet degenerative changes with small left paracentral disc herniation C4-C5. There is moderate cord compression C4-C5 and mild cord compression C5-C6 and C6-C7 along with moderate spinal canal stenosis. Significant neuroforaminal narrowing as above most pronounced moderate to severe on the right at C4-C5. Report Dictated on Electronically Signed By: Orville Culver MD Electronically Signed Date/Time: 01/08/2023 4:11 PM EDT [facility] Radiology Study observation (narrative) [facility] MR Cervical spine WO contras tOrdered By: Orville Culver on 01-08-2023 [facility] [employer] Work Phone: No Panel Informationon 01-08 Interpretation and review of laboratory results Abnormal [facility] Performed by: [facility], [address] [place] [id number] CLIA ID: [id number] [facility] Interpretation and review of laboratory results Abnormal [facility] Performed by: [facility], [address] [place] [id number] CLIA ID: [id number] [facility] Interpretation and review of laboratory results Normal [facility] Interpretation and review of laboratory results Abnormal [facility] Urinalysis complete panel (U )on 01-08-2023 Bacteria LM.HPF (Urine sed) [#/Area] Moderate Abnormal Negative /HPF [facility] Bilirubin Ql (U) Negative Negative mg/dL [facility] Clarity (U) Turbid Abnormal Clear [facility] Color (U) Colorless Lt. Yellow [facility] Epithelial cells.squamous LM.HPF (Urine sed) [#/Area] 0-2 [facility] Glucose Ql (U) Normal Normal (<70) mg/dL [facility] Hemoglobin Ql (U) >1.0 Abnormal Negative mg/dL [facility] Interpretation and review of laboratory results Abnormal [facility] Ketones (U) [Mass/Vol] Negative Negat iris mg/dL [facility] Leukocyte clumps LM.HPF (Urine sed) [#/Area] Few Abnormal Negative /HPF [facility] Leukocyte esterase Test strip Ql (U) 500 Abnormal Negative Jimenez/uL [facility] Mucus LM.HPF (Urine sed) [#/Area] Few Negative /LPF [facility] Nitrite Ql (U) Negative Negative [facility] pH (U) 7.5 [pH] 5.0 - 8.0 pH [facility] Protein (U) [Mass/Vol] 50 mg/dL Abnormal Negative Fuentes [facility] RBC LM.HPF (Urine sed) [#/Area] 51-100 Abnormal [facility] Specific gravity (U) [Rel density] 1.010 1.005 - 1.030 [facility] Urobilinogen (U) [Mass/Vol] Normal Normal (0-1) mg/dL [facility] WBC LM.HPF (Urine sed) [#/Area] 26-50 Abnormal [facility] Basic metabolic 1998 panelon 08-07-2022 Anion gap [Moles/Vol] 10 mmol/L 3 - 13 mmol/L [facility] Calcium [Mass/Vol] 8.8 mg/dL 8.4 - 10. 4 mg/dL [facility] Chloride [Moles/Vol] 101 mmol/L 98 - 10 7 mmol/L [facility] CO2 [Moles/Vol] 24 mmol/L 22 - 30 mmol/L [facility] Creatinine [Mass/Vol] 1.11 mg/dL High 0.52 - 1.04 mg/dL [facility] GFR/1.73 sq M.predicted MDRD (S/P/Bld) [Vol rate/Area] 52.6 mL/min/{1.73_m2} Low - PINF [facility] Comment on above: Calculation based on the Chronic Kidney Disease Epidemiology Collaboration (CKD-EPI) equation refit without adjustment for race Glucose [Mass/Vol] 166 mg/dL High 70 - 100 mg/dL [facility] Interpretation and review of laboratory results Abnormal [facility] Potassium [Moles/Vol] 4.5 mmol/L 3.5 - 5.1 mmol/L [facility] Sodium [Moles/Vol] 135 mmol/L 135 - 145 mmol/L [facility] Urea nitrogen [Mass/Vol] 51 mg/dL High 7 - 17 mg/dL [facility] Slightly hemolyzed, interpret potassium with caution. [facility] Laboratory - Chemistry and C hemistry - challengeon 08-07-2022 Glucose [Mass/Vol] 193 mg/dL High 70 - 100 mg/dL [facility] Glucose [Mass/Vol] 212 mg/dL High 70 - 100 mg/dL [facility] Laboratory - Microbiology an d Antimicrobial susceptibilityOrdered By: Katie Bray on 08-07-2022 SARS-CoV-2 (COVID-19) Ag IA.rapid Ql (Resp) Negative Negative [facility] Comment on above: A negative result do es not rule out the possibility of SARS-CoV-2 infection. NAAT-based methods should be considered for symptomatic patients presenting greater than seven days after onset of symptoms. Method: Lateral flow immunoassay. Fact sheets for healthcare providers and patients can be found at the following sites: https://www.TellMi.gov/media/848945/download https://www.TellMi.gov/media/862722/download No Panel Informationon 08-07 Interpretation and review of laboratory results Abnormal [facility] Performed by: [facility], [address] [place] [address] CLIA ID: [id number] [facility] Interpretation and review of laboratory results Abnormal [facility] Performed by: [facility], [address] [place] [address] CLIA ID: [id number] [facility] SARS-CoV-2 (COVID-19) Ag IA. rapid Ql (Resp)Ordered By: Katie Bray on 08-07-2022 Interpretation and review of laboratory results Normal [facility] CBC W Auto Differential pane l (Bld)Ordered By: Orville Cárdenas on 08-06-2022 Basophils (Bld) [#/Vol] 0.1 10*3/uL 0.0 - 0.2 10*3/uL [facility] Basophils/100 WBC (Bld) 0.5 % 0.0 - 2.0 % [facility] Eosinophils (Bld) [#/Vol] 0.4 10*3/uL 0.0 - 0.5 10*3/uL [facility] Eosinophils/100 WBC (Bld) 4.2 % 1.0 - 6.0 % [facility] Erythrocyte distribution width (RBC) [Ratio] 21.3 % High 11.5 - 14.5 % [facility] Comment on above: I-Anisocytosis Hematocrit (Bld) [Volume fraction] 32.0 % Low 35.0 - 47.0 % [facility] Hemoglobin (Bld) [Mass/Vol] 10.5 g/dL Low 11.7 - 16.0 g/dL [facility] Interpretation and review of laboratory results Abnormal [facility] Lymphocytes (Bld) [#/Vol] 3.4 10*3/uL 1.0 - 4.3 10*3/uL [facility] Lymphocytes/100 WBC (Bld) 34.6 % 20.0 - 40.0 % [facility] MCH (RBC) [Entitic mass] 29.6 pg 26.0 - 34.0 pg [facility] MCHC (RBC) [Mass/Vol] 32.8 % 32.0 - 36.0 % [facility] MCV (RBC) [Entitic vol] 90.0 fL 80.0 - 98.0 fL [facility] Monocytes (Bld) [#/Vol] 0.7 10*3/uL 0.0 - 0.8 10*3/uL [facility] Monocytes/100 WBC (Bld) 7.1 % 2.0 - 10.0 % [facility] Neutrophils (Bld) [#/Vol] 5.3 10*3/uL 1.8 - 7.0 10*3/uL [facility] Neutrophils/100 WBC (Bld) 53.6 % 40.0 - 80.0 % [facility] Nucleated RBC/100 WBC (Bld) [Ratio] 0.0 % [facility] Platelet mean volume (Bld) [Entitic vol] 9.7 fL 7.4 - 12.4 fL [facility] Platelets (Bld) [#/Vol] 235 10*3/uL 140 - 440 10*3/uL [facility] RBC (Bld) [#/Vol] 3.56 10*6/uL Low 3.8 - 5.20 10*6/uL [facility] WBC (Bld) [#/Vol] 9.9 10*3/uL 3.6 - 10.7 10*3/uL [facility] Comprehensive metabolic 1998 panelon 08-06-2022 Albumin [Mass/Vol] 3.6 g/dL 3.5 - 5.0 g/dL [facility] ALP [Catalytic activity/Vol] 88 U/L 38 - 126 U/L [facility] ALT [Catalytic activity/Vol] 14 U/L 0 - 34 U/L [facility] Anion gap [Moles/Vol] 8 mmol/L 3 - 13 mmol/L [facility] AST [Catalytic activity/Vol] 23 U/L 15 - 46 U/L [facility] Bilirubin [Mass/Vol] 0.4 mg/dL 0.2 - 1 .3 mg/dL [facility] Calcium [Mass/Vol] 9.0 mg/dL 8.4 - 10. 4 mg/dL [facility] Chloride [Moles/Vol] 102 mmol/L 98 - 10 7 mmol/L [facility] CO2 [Moles/Vol] 28 mmol/L 22 - 30 mmol/L [facility] Creatinine [Mass/Vol] 1.14 mg/dL High 0.52 - 1.04 mg/dL [facility] GFR/1.73 sq M.predicted MDRD (S/P/Bld) [Vol rate/Area] 50.9 mL/min/{1.73_m2} Low - PINF [facility] Comment on above: Calculation based on the Chronic Kidney Disease Epidemiology Collaboration (CKD-EPI) equation refit without adjustment for race Glucose [Mass/Vol] 142 mg/dL High 70 - 100 mg/dL [facility] Interpretation and review of laboratory results Abnormal [facility] Potassium [Moles/Vol] 5.2 mmol/L High 3.5 - 5.1 mmol/L [facility] Protein [Mass/Vol] 7.0 g/dL 6.3 - 8.2 g/dL [facility] Sodium [Moles/Vol] 137 mmol/L 135 - 145 mmol/L [facility] Urea nitrogen [Mass/Vol] 43 mg/dL High 7 - 17 mg/dL [facility] Creatinine (U) [Mass/Vol]on 08-06-2022 CREATININE, URINE 27.7 mg/dL No Range [facility] Laboratory - Chemistry and C hemistry - challengeon 08-06-2022 Glucose [Mass/Vol] 164 mg/dL High 70 - 100 mg/dL [facility] Glucose [Mass/Vol] 149 mg/dL High 70 - 100 mg/dL [facility] Urea nitrogen (U) [Mass/Vol] 287 mg/dL No Range [facility] Glucose [Mass/Vol] 201 mg/dL High 70 - 100 mg/dL [facility] Glucose [Mass/Vol] 189 mg/dL High 70 - 100 mg/dL [facility] No Panel Informationon 08-06 Interpretation and review of laboratory results Abnormal [facility] Performed by: [facility], [address] [place] [address] CLIA ID: [id number] [facility] Interpretation and review of laboratory results Abnormal [facility] Performed by: [facility], [address] [place] [address], [facility] [address] CLIA ID: [id number] [facility] Interpretation and review of laboratory results Abnormal [facility] Performed by: [facility], [address] [place] [address], [facility] [address] CLIA ID: [id number] [facility] Interpretation and review of laboratory results Abnormal [facility] Performed by: [facility], [address] [place] [address], [facility] [address] CLIA ID: [id number] [facility] Urinalysis complete panel (U )on 08-06-2022 Bacteria LM.HPF (Urine sed) [#/Area] Many Abnormal Negative /HPF [facility] Bilirubin Ql (U) Negative Negative mg/dL [facility] Clarity (U) Turbid Abnormal Clear [facility] Color (U) Colorless Lt. Yellow [facility] Epithelial cells.squamous LM.HPF (Urine sed) [#/Area] 0-2 [facility] Glucose Ql (U) Normal Normal (<70) mg/dL [facility] Hemoglobin Ql (U) >1.0 Abnormal Negative mg/dL [facility] Hyaline casts Auto (Urine sed) [#/Area] 6-10 Abnormal Negative /LPF [facility] Interpretation and review of laboratory results Abnormal [facility] Ketones (U) [Mass/Vol] Negative Negat iris mg/dL [facility] Leukocyte esterase Test strip Ql (U) 500 Abnormal Negative Jimenez/uL [facility] Mucus LM.HPF (Urine sed) [#/Area] Few Negative /LPF [facility] Nitrite Ql (U) Negative Negative [facility] Non-Squamous Epithalial Cells, Urine 0-2 Abnormal Negative /HPF [facility] pH (U) 6.5 [pH] 5.0 - 8.0 pH [facility] Protein (U) [Mass/Vol] 30 mg/dL Abnormal Negative [facility] RBC LM.HPF (Urine sed) [#/Area] /[HPF] Abnormal [facility] Specific gravity (U) [Rel density] 1.010 1.005 - 1.030 [facility] Urobilinogen (U) [Mass/Vol] Normal Normal (0-1) mg/dL [facility] WBC LM.HPF (Urine sed) [#/Area] /[HPF] Abnormal [facility] Bacteria identified Cx Nom ( U)Ordered By: Jaylyn Hernandez on 08-05-2022 Interpretation and review of laboratory results Normal [facility] Laboratory - Chemistry and C hemistry - challengeon 08-05-2022 Glucose [Mass/Vol] 175 mg/dL High 70 - 100 mg/dL [facility] Glucose [Mass/Vol] 162 mg/dL High 70 - 100 mg/dL [facility] Glucose [Mass/Vol] 159 mg/dL High 70 - 100 mg/dL [facility] Glucose [Mass/Vol] 166 mg/dL High 70 - 100 mg/dL [facility] Laboratory - Microbiology an d Antimicrobial susceptibilityOrdered By: Jaylyn Hernandez on 08-05-2022 Bacteria identified Cx Nom (U) No growth (<1,000 CFU/mL) [facility] No Panel Informationon 08-05 Interpretation and review of laboratory results Abnormal [facility] Performed by: [facility], [address] [place] [address] CLIA ID: [id number] [facility] Interpretation and review of laboratory results Abnormal [facility] Performed by: [facility], [address] [place], [place] [id number] CLIA ID: [id number] [facility] Interpretation and review of laboratory results Abnormal [facility] Performed by: [facility], [address] [place] [address] CLIA ID: [id number] [facility] Interpretation and review of laboratory results Abnormal [facility] Performed by: [facility], [address] [place] [address] CLIA ID: [id number] [facility] Laboratory - Chemistry and C hemistry - challengeon 08-04-2022 Glucose [Mass/Vol] 337 mg/dL High 70 - 100 mg/dL [facility] Glucose [Mass/Vol] 299 mg/dL High 70 - 100 mg/dL [facility] Glucose [Mass/Vol] 302 mg/dL High 70 - 100 mg/dL [facility] Glucose [Mass/Vol] 233 mg/dL High 70 - 100 mg/dL [facility] No Panel Informationon 08-04 Interpretation and review of laboratory results Abnormal [facility] Performed by: [facility], [address] [place] [address] CLIA ID: [id number] [facility] Interpretation and review of laboratory results Abnormal [facility] Performed by: [facility], [address] [place] [address] CLIA ID: [id number] [facility] Interpretation and review of laboratory results Abnormal [facility] Performed by: [facility], [address] [place] [id number] CLIA ID: [id number] [facility] Interpretation and review of laboratory results Abnormal [facility] Performed by: [facility], [address] [place] [address] CLIA ID: [id number] [facility] Urinalysis complete panel (U )Ordered By: Felecai Arevalo on 08-04-2022 Amorphous Crystals, Urine Moderate Abnormal Negative /HPF [facility] Bacteria LM.HPF (Urine sed) [#/Area] Loaded Abnormal Negative /HPF [facility] Bilirubin Ql (U) Negative Negative mg/dL [facility] Calcium oxalate crystals LM.HPF (Urine sed) [#/Area] Few Abnormal Negative /HPF [facility] Clarity (U) Extra Turbid Abnormal Clear [facility] Color (U) Arroyo Abnormal Lt. Yellow [facility] Epithelial cells.squamous LM.HPF (Urine sed) [#/Area] 3-5 [facility] Glucose Ql (U) Normal Normal (<70) mg/dL [facility] Hemoglobin Ql (U) >1.0 Abnormal Negative mg/dL [facility] Hyaline casts Auto (Urine sed) [#/Area] >100 Abnormal Negative /LPF [facility] Interpretation and review of laboratory results Abnormal [facility] Ketones (U) [Mass/Vol] Negative Negat iris mg/dL [facility] Leukocyte clumps LM.HPF (Urine sed) [#/Area] Occasional Abnormal Negative /HPF [facility] Leukocyte esterase Test strip Ql (U) 500 Abnormal Negative Jimenez/uL [facility] Nitrite Ql (U) Negative Negative [facility] pH (U) 5.5 [pH] 5.0 - 8.0 pH [facility] Protein (U) [Mass/Vol] 100 mg/dL Abnormal Negative Fuentes mma [facility] RBC LM.HPF (Urine sed) [#/Area] /[HPF] Abnormal [facility] Specific gravity (U) [Rel density] 1.009 1.005 - 1.030 [facility] Urobilinogen (U) [Mass/Vol] Normal Normal (0-1) mg/dL [facility] WBC LM.HPF (Urine sed) [#/Area] /[HPF] Abnormal [facility] Basic metabolic 1998 panelon 08-03-2022 Anion gap [Moles/Vol] 5 mmol/L 3 - 13 mmol/L [facility] Calcium [Mass/Vol] 8.9 mg/dL 8.4 - 10. 4 mg/dL [facility] Chloride [Moles/Vol] 101 mmol/L 98 - 10 7 mmol/L [facility] CO2 [Moles/Vol] 30 mmol/L 22 - 30 mmol/L [facility] Creatinine [Mass/Vol] 0.77 mg/dL 0.52 - 1.04 mg/dL [facility] GFR/1.73 sq M.predicted MDRD (S/P/Bld) [Vol rate/Area] 81.6 mL/min/{1.73_m2} - PINF [facility] Comment on above: Calculation based on the Chronic Kidney Disease Epidemiology Collaboration (CKD-EPI) equation refit without adjustment for race Glucose [Mass/Vol] 234 mg/dL High 70 - 100 mg/dL [facility] Interpretation and review of laboratory results Abnormal [facility] Potassium [Moles/Vol] 4.5 mmol/L 3.5 - 5.1 mmol/L [facility] Sodium [Moles/Vol] 136 mmol/L 135 - 145 mmol/L [facility] Urea nitrogen [Mass/Vol] 30 mg/dL High 7 - 17 mg/dL [facility] CBC W Auto Differential pane l (Bld)Ordered By: Marcus Ontiveros on 08-03-2022 Basophils (Bld) [#/Vol] 0.1 10*3/uL 0.0 - 0.2 10*3/uL [facility] Basophils/100 WBC (Bld) 0.7 % 0.0 - 2.0 % [facility] Eosinophils (Bld) [#/Vol] 0.3 10*3/uL 0.0 - 0.5 10*3/uL [facility] Eosinophils/100 WBC (Bld) 3.3 % 1.0 - 6.0 % [facility] Erythrocyte distribution width (RBC) [Ratio] 20.5 % High 11.5 - 14.5 % [facility] Comment on above: I-Anisocytosis Hematocrit (Bld) [Volume fraction] 34.1 % Low 35.0 - 47.0 % [facility] Hemoglobin (Bld) [Mass/Vol] 10.8 g/dL Low 11.7 - 16.0 g/dL [facility] Interpretation and review of laboratory results Abnormal [facility] Lymphocytes (Bld) [#/Vol] 2.5 10*3/uL 1.0 - 4.3 10*3/uL [facility] Lymphocytes/100 WBC (Bld) 28.2 % 20.0 - 40.0 % [facility] MCH (RBC) [Entitic mass] 28.5 pg 26.0 - 34.0 pg [facility] MCHC (RBC) [Mass/Vol] 31.8 % Low 32.0 - 36.0 % [facility] MCV (RBC) [Entitic vol] 89.8 fL 80.0 - 98.0 fL [facility] Monocytes (Bld) [#/Vol] 0.5 10*3/uL 0.0 - 0.8 10*3/uL [facility] Monocytes/100 WBC (Bld) 5.8 % 2.0 - 10.0 % [facility] Neutrophils (Bld) [#/Vol] 5.5 10*3/uL 1.8 - 7.0 10*3/uL [facility] Neutrophils/100 WBC (Bld) 62.0 % 40.0 - 80.0 % [facility] Nucleated RBC/100 WBC (Bld) [Ratio] 0.1 % [facility] [employer] Platelet mean volume (Bld) [Entitic vol] 9.7 fL 7.4 - 12.4 fL [facility] [employer] Platelets (Bld) [#/Vol] 259 10*3/uL 140 - 440 10*3/uL [facility] RBC (Bld) [#/Vol] 3.79 10*6/uL Low 3.8 - 5.20 10*6/uL [facility] WBC (Bld) [#/Vol] 8.8 10*3/uL 3.6 - 10.7 10*3/uL [facility] Laboratory - Chemistry and C hemistry - challengeon 08-03-2022 Glucose [Mass/Vol] mg/dL High 70 - 100 mg/dL [facility] Comment on above: Repeated Test; Glucose [Mass/Vol] 380 mg/dL High 70 - 100 mg/dL [facility] Glucose [Mass/Vol] 241 mg/dL High 70 - 100 mg/dL [facility] Glucose [Mass/Vol] 160 mg/dL High 70 - 100 mg/dL [facility] Glucose [Mass/Vol] 181 mg/dL High 70 - 100 mg/dL [facility] Glucose [Mass/Vol] 205 mg/dL High 70 - 100 mg/dL [facility] Laboratory - Coagulationon 0 08-03-2022 aPTT Coag (PPP) [Time] 26.2 s 20.0 - 30.5 s [facility] INR Coag (PPP) [Relative time] 1.0 {INR} 0.9 - 1.1 [facility] Comment on above: Recommended Anticoag ulant Therapy: SEE BELOW ----- INR of 2.0 - 3.0 : - Prophylaxis of Venous Thrombosis (high-risk surgery) - Treatment of Venous Thrombosis - Treatment of Pulmonary Embolism (Includes tissue heart valves, Acute Myocardial Infarction to prevent systemic embolism, Valvular Heart Disease, and Atrial Fibrillation) ----- INR of 2.5 - 3.5 : - Mechanical Prosthetic Valves (high risk) - If oral anticoagulant therapy is used to prevent Myocardial Infarction PT Coag (Bld) [Time] 10.5 s 9.0 - 1 2.0 s [facility] No Panel Informationon 08-03 Interpretation and review of laboratory results Abnormal [facility] Performed by: [facility], [address] [place] [id number] CLIA ID: [id number] [facility] Interpretation and review of laboratory results Abnormal [facility] Performed by: [facility], [address] [place] [id number] CLIA ID: [id number] [facility] Interpretation and review of laboratory results Abnormal [facility] Performed by: [facility], [address] [place] [id number] CLIA ID: [id number] [facility] There is no interpre tation needed for this exam. IMAGING Interpretation and review of laboratory results Abnormal [facility] Performed by: [facility], [address] [place] [id number] CLIA ID: [id number] [facility] Interpretation and review of laboratory results Abnormal [facility] Performed by: [facility], [address] [place] [id number] CLIA ID: [id number] [facility] Interpretation and review of laboratory results Normal [facility] Basic metabolic 1998 panelon 08-02-2022 Anion gap [Moles/Vol] 3 mmol/L 3 - 13 mmol/L [facility] Calcium [Mass/Vol] 8.7 mg/dL 8.4 - 10. 4 mg/dL [facility] Chloride [Moles/Vol] 103 mmol/L 98 - 10 7 mmol/L [facility] CO2 [Moles/Vol] 30 mmol/L 22 - 30 mmol/L [facility] Creatinine [Mass/Vol] 0.81 mg/dL 0.52 - 1.04 mg/dL [facility] GFR/1.73 sq M.predicted MDRD (S/P/Bld) [Vol rate/Area] 76.8 mL/min/{1.73_m2} - PINF [facility] Comment on above: Calculation based on the Chronic Kidney Disease Epidemiology Collaboration (CKD-EPI) equation refit without adjustment for race Glucose [Mass/Vol] 239 mg/dL High 70 - 100 mg/dL [facility] Interpretation and review of laboratory results Abnormal [facility] Potassium [Moles/Vol] 4.7 mmol/L 3.5 - 5.1 mmol/L [facility] Sodium [Moles/Vol] 136 mmol/L 135 - 145 mmol/L [facility] Urea nitrogen [Mass/Vol] 29 mg/dL High 7 - 17 mg/dL [facility] CBC W Auto Differential pane l (Bld)Ordered By: Norah Luna on 08-02-2022 Basophils (Bld) [#/Vol] 0.1 10*3/uL 0.0 - 0.2 10*3/uL [facility] Basophils/100 WBC (Bld) 0.8 % 0.0 - 2.0 % [facility] Eosinophils (Bld) [#/Vol] 0.4 10*3/uL 0.0 - 0.5 10*3/uL [facility] Eosinophils/100 WBC (Bld) 4.9 % 1.0 - 6.0 % [facility] Erythrocyte distribution width (RBC) [Ratio] 20.8 % High 11.5 - 14.5 % [facility] Comment on above: I-Anisocytosis Hematocrit (Bld) [Volume fraction] 34.1 % Low 35.0 - 47.0 % [facility] Hemoglobin (Bld) [Mass/Vol] 10.8 g/dL Low 11.7 - 16.0 g/dL [facility] Interpretation and review of laboratory results Abnormal [facility] Lymphocytes (Bld) [#/Vol] 1.9 10*3/uL 1.0 - 4.3 10*3/uL [facility] Lymphocytes/100 WBC (Bld) 23.7 % 20.0 - 40.0 % [facility] MCH (RBC) [Entitic mass] 28.4 pg 26.0 - 34.0 pg [facility] MCHC (RBC) [Mass/Vol] 31.6 % Low 32.0 - 36.0 % [facility] MCV (RBC) [Entitic vol] 89.7 fL 80.0 - 98.0 fL [facility] Monocytes (Bld) [#/Vol] 0.5 10*3/uL 0.0 - 0.8 10*3/uL [facility] Monocytes/100 WBC (Bld) 6.8 % 2.0 - 10.0 % [facility] Neutrophils (Bld) [#/Vol] 5.1 10*3/uL 1.8 - 7.0 10*3/uL [facility] Neutrophils/100 WBC (Bld) 63.8 % 40.0 - 80.0 % [facility] Nucleated RBC/100 WBC (Bld) [Ratio] 0.0 % [facility] Platelet mean volume (Bld) [Entitic vol] 9.0 fL 7.4 - 12.4 fL [facility] Platelets (Bld) [#/Vol] 241 10*3/uL 140 - 440 10*3/uL [facility] RBC (Bld) [#/Vol] 3.80 10*6/uL 3.8 - 5.20 10*6/uL [facility] WBC (Bld) [#/Vol] 8.0 10*3/uL 3.6 - 10.7 10*3/uL [facility] Laboratory - Chemistry and C hemistry - challengeon 08-02-2022 Glucose [Mass/Vol] 247 mg/dL High 70 - 100 mg/dL [facility] No Panel Informationon 08-02 Interpretation and review of laboratory results Abnormal [facility] Performed by: [facility], [address] [place] [address] CLIA ID: [id number] [facility] Bacteria identified Anaer cx Nom (Unsp spec)Ordered By: Torres Yoder on 06-16-2022 Interpretation and review of laboratory results Abnormal [facility] Bacteria identified Cx Nom ( Bld)on 06-16-2022 Interpretation and review of laboratory results Normal [facility] CBC W Auto Differential pane l (Bld)on 06-16-2022 Erythrocyte distribution width (RBC) [Ratio] 18.1 % High 11.5 - 14.5 % [facility] Hematocrit (Bld) [Volume fraction] 24.3 % Low 35.0 - 47.0 % [facility] Hemoglobin (Bld) [Mass/Vol] 7.5 g/dL Low 11.7 - 16.0 g/dL [facility] MCH (RBC) [Entitic mass] 25.4 pg Low 26.0 - 34.0 pg [facility] MCHC (RBC) [Mass/Vol] 31.1 % Low 32.0 - 36.0 % [facility] MCV (RBC) [Entitic vol] 81.5 fL 80.0 - 98.0 fL [facility] Nucleated RBC/100 WBC (Bld) [Ratio] 0.1 % [facility] Platelet mean volume (Bld) [Entitic vol] 10.4 fL 7.4 - 12.4 fL [facility] Platelets (Bld) [#/Vol] 180 10*3/uL 140 - 440 10*3/uL [facility] RBC (Bld) [#/Vol] 2.97 10*6/uL Low 3.8 - 5.20 10*6/uL [facility] WBC (Bld) [#/Vol] 9.0 10*3/uL 3.6 - 10.7 10*3/uL [facility] Calcium.ionized [Moles/Vol]o n 06-16-2022 Calcium.ionized (Bld) [Moles/Vol] 4.30 mg/dL 4.30 - 5.20 mg/dL [facility] Interpretation and review of laboratory results Normal [facility] PH, IONIZED CALCIUM 7.45 7.31 - 7.46 [facility] Comprehensive metabolic 1998 panelon 06-16-2022 Albumin [Mass/Vol] 2.5 g/dL Low 3.5 - 5.0 g/dL [facility] ALP [Catalytic activity/Vol] 65 U/L 38 - 126 U/L [facility] ALT [Catalytic activity/Vol] 9 U/L 0 - 34 U/L [facility] Anion gap [Moles/Vol] 2 mmol/L Low 3 - 13 mmol/L [facility] AST [Catalytic activity/Vol] 15 U/L 15 - 46 U/L [facility] Bilirubin [Mass/Vol] 0.5 mg/dL 0.2 - 1 .3 mg/dL [facility] Calcium [Mass/Vol] 7.8 mg/dL Low 8.4 - 10. 4 mg/dL [facility] Chloride [Moles/Vol] 112 mmol/L High 98 - 10 7 mmol/L [facility] CO2 [Moles/Vol] 28 mmol/L 22 - 30 mmol/L [facility] Creatinine [Mass/Vol] 0.85 mg/dL 0.52 - 1.04 mg/dL [facility] GFR/1.73 sq M.predicted MDRD (S/P/Bld) [Vol rate/Area] 72.4 mL/min/{1.73_m2} - PINF [facility] Glucose [Mass/Vol] 237 mg/dL High 70 - 100 mg/dL [facility] Interpretation and review of laboratory results Abnormal [facility] Potassium [Moles/Vol] 3.8 mmol/L 3.5 - 5.1 mmol/L [facility] Protein [Mass/Vol] 4.9 g/dL Low 6.3 - 8.2 g/dL [facility] Sodium [Moles/Vol] 142 mmol/L 135 - 145 mmol/L [facility] Urea nitrogen [Mass/Vol] 47 mg/dL High 7 - 17 mg/dL [facility] Laboratory - Chemistry and C hemistry - challengeon 06-16-2022 Glucose [Mass/Vol] 155 mg/dL High 70 - 100 mg/dL [facility] Glucose [Mass/Vol] 193 mg/dL High 70 - 100 mg/dL [facility] Magnesium [Mass/Vol] 1.7 mg/dL 1.6 - 2 .3 mg/dL [facility] Laboratory - Microbiology an d Antimicrobial susceptibilityOrdered By: Genny Leon on 06-16-2022 SARS-CoV-2 (COVID-19) Ag IA.rapid Ql (Resp) Negative Negative [facility] Laboratory - Microbiology an d Antimicrobial susceptibilityon 06-16-2022 Bacteria identified Cx Nom (Bld) No growth at 5 days [facility] Laboratory - Microbiology an d Antimicrobial susceptibilityOrdered By: Torres Yoder on 06-16-2022 Bacteria identified Anaer cx Nom (Unsp spec) Positive Abnormal [facility] Manual differential performe d Ql (Bld)on 06-16-2022 Anisocytosis Ql (Bld) Slight Abnormal (none) [facility] Cells Counted Total (Bld) [#] 100 {cells} [facility] Eosinophils (Bld) [#/Vol] 0.3 10*3/uL 0.0 - 0.5 10*3/uL [facility] Eosinophils Manual 3 High 0 - 1 [facility] Eosinophils/100 WBC (Bld) 3 % 1 - 6 % [facility] Leukocyte morphology finding Nom (Bld) Normal [facility] Lymphocytes (Bld) [#/Vol] 2.0 10*3/uL 1.0 - 4.3 10*3/uL [facility] Lymphocytes Manual 22 [facility] Lymphocytes/100 WBC (Bld) 22 % 20 - 40 % [facility] Monocytes (Bld) [#/Vol] 0.2 10*3/uL 0.0 - 0.8 10*3/uL [facility] Monocytes Manual 2 [facility] Monocytes/100 WBC (Bld) 2 % 2 - 10 % [facility] Myelocytes (Bld) [#/Vol] 0.2 10*3/uL High NINF - 0.0 10*3/uL [facility] Myelocytes Manual 2 [facility] Myelocytes/100 WBC (Bld) 2 % High NINF - 0 % [facility] Neutrophils (Bld) [#/Vol] 6.4 10*3/uL 1.8 - 7.0 10*3/uL [facility] Neutrophils Manual 71 [facility] Ovalocytes LM Ql (Bld) Slight Abnormal (none) [facility] Platelet morphology finding Nom (Bld) Normal [facility] Poikilocytosis LM Ql (Bld) Slight Abnormal (none) [facility] Segmented neutrophils/100 WBC (Bld) 71 % 40 - 80 % [facility] WBC corrected for nucl RBC (Bld) [#/Vol] 9.00 10*3/uL 3.60 - 10.70 10*3/uL [facility] No Panel Informationon 06-16 Interpretation and review of laboratory results Abnormal [facility] Interpretation and review of laboratory results Abnormal [facility] Interpretation and review of laboratory results Abnormal [facility] Interpretation and review of laboratory results Normal [facility] Phosphate [Moles/Vol]on 05-31 Phosphate [Mass/Vol] 3.6 mg/dL 2.5 - 4 .5 mg/dL [facility] SARS-CoV-2 (COVID-19) Ag IA. rapid Ql (Resp)Ordered By: Genny Leon on 06-16-2022 Interpretation and review of laboratory results Normal [facility] CBC W Auto Differential pane l (Bld)on 06-15-2022 Erythrocyte distribution width (RBC) [Ratio] 18.1 % High 11.5 - 14.5 % [facility] Hematocrit (Bld) [Volume fraction] 27.0 % Low 35.0 - 47.0 % [facility] Hemoglobin (Bld) [Mass/Vol] 8.7 g/dL Low 11.7 - 16.0 g/dL [facility] MCH (RBC) [Entitic mass] 26.0 pg 26.0 - 34.0 pg [facility] MCHC (RBC) [Mass/Vol] 32.2 % 32.0 - 36.0 % [facility] MCV (RBC) [Entitic vol] 80.7 fL 80.0 - 98.0 fL [facility] Nucleated RBC/100 WBC (Bld) [Ratio] 0.1 % [facility] Platelet mean volume (Bld) [Entitic vol] 10.6 fL 7.4 - 12.4 fL [facility] Platelets (Bld) [#/Vol] 138 10*3/uL Low 140 - 440 10*3/uL [facility] RBC (Bld) [#/Vol] 3.35 10*6/uL Low 3.8 - 5.20 10*6/uL [facility] WBC (Bld) [#/Vol] 9.2 10*3/uL 3.6 - 10.7 10*3/uL [facility] Calcium.ionized [Moles/Vol]o n 06-15-2022 Calcium.ionized (Bld) [Moles/Vol] 4.40 mg/dL 4.30 - 5.20 mg/dL [facility] Interpretation and review of laboratory results Normal [facility] PH, IONIZED CALCIUM 7.40 7.31 - 7.46 [facility] Comprehensive metabolic 1998 panelon 06-15-2022 Albumin [Mass/Vol] 2.7 g/dL Low 3.5 - 5.0 g/dL [facility] ALP [Catalytic activity/Vol] 61 U/L 38 - 126 U/L [facility] ALT [Catalytic activity/Vol] 10 U/L 0 - 34 U/L [facility] Anion gap [Moles/Vol] 1 mmol/L Low 3 - 13 mmol/L [facility] AST [Catalytic activity/Vol] 15 U/L 15 - 46 U/L [facility] Bilirubin [Mass/Vol] 0.6 mg/dL 0.2 - 1 .3 mg/dL [facility] Calcium [Mass/Vol] 7.8 mg/dL Low 8.4 - 10. 4 mg/dL [facility] Chloride [Moles/Vol] 113 mmol/L High 98 - 10 7 mmol/L [facility] CO2 [Moles/Vol] 30 mmol/L 22 - 30 mmol/L [facility] Creatinine [Mass/Vol] 0.96 mg/dL 0.52 - 1.04 mg/dL [facility] GFR/1.73 sq M.predicted MDRD (S/P/Bld) [Vol rate/Area] 62.6 mL/min/{1.73_m2} - PINF [facility] [employer] Glucose [Mass/Vol] 173 mg/dL High 70 - 100 mg/dL [facility] [employer] Interpretation and review of laboratory results Abnormal [facility] [employer] Potassium [Moles/Vol] 3.8 mmol/L 3.5 - 5.1 mmol/L [facility] [employer] Protein [Mass/Vol] 5.2 g/dL Low 6.3 - 8.2 g/dL [facility] [employer] Sodium [Moles/Vol] 144 mmol/L 135 - 145 mmol/L [facility] [employer] Urea nitrogen [Mass/Vol] 54 mg/dL High 7 - 17 mg/dL [facility] Laboratory - Chemistry and C hemistry - challengeon 06-15-2022 Glucose [Mass/Vol] 352 mg/dL High 70 - 100 mg/dL [facility] [employer] Glucose [Mass/Vol] 142 mg/dL High 70 - 100 mg/dL [facility] [employer] Glucose [Mass/Vol] 180 mg/dL High 70 - 100 mg/dL [facility] [employer] Glucose [Mass/Vol] 193 mg/dL High 70 - 100 mg/dL [facility] [employer] Magnesium [Mass/Vol] 1.8 mg/dL 1.6 - 2 .3 mg/dL [facility] Laboratory - Coagulationon 0 06-15-2022 PT Coag (Bld) [Time] 12.8 s High 9.0 - 1 2.0 s [facility] [employer] Manual differential performe d Ql (Bld)on 06-15-2022 Anisocytosis Ql (Bld) Slight Abnormal (none) [facility] Band form neutrophils (Bld) [#/Vol] 0.1 10*3/uL High NINF - 0.0 10*3/uL [facility] [employer] Band form neutrophils/100 WBC (Bld) 1 % High NINF - 0 % [facility] [employer] Bands Manual 1 [facility] [employer] Cells Counted Total (Bld) [#] 100 {cells} [facility] [employer] Eosinophils (Bld) [#/Vol] 0.1 10*3/uL 0.0 - 0.5 10*3/uL [facility] [employer] Eosinophils Manual 1 0 - 1 [facility] [employer] Eosinophils/100 WBC (Bld) 1 % 1 - 6 % [facility] [employer] Leukocyte morphology finding Nom (Bld) Normal [facility] [employer] Lymphocytes (Bld) [#/Vol] 2.4 10*3/uL 1.0 - 4.3 10*3/uL [facility] Lymphocytes Manual 26 [facility] Lymphocytes/100 WBC (Bld) 26 % 20 - 40 % [facility] Monocytes (Bld) [#/Vol] 0.1 10*3/uL 0.0 - 0.8 10*3/uL [facility] Monocytes Manual 1 [facility] Monocytes/100 WBC (Bld) 1 % Low 2 - 10 % [facility] Myelocytes (Bld) [#/Vol] 0.1 10*3/uL High NINF - 0.0 10*3/uL [facility] Myelocytes Manual 1 [facility] Myelocytes/100 WBC (Bld) 1 % High NINF - 0 % [facility] Neutrophils (Bld) [#/Vol] 6.5 10*3/uL 1.8 - 7.0 10*3/uL [facility] Neutrophils Manual 70 [facility] Ovalocytes LM Ql (Bld) Slight Abnormal (none) [facility] Platelet morphology finding Nom (Bld) Normal [facility] Poikilocytosis LM Ql (Bld) Slight Abnormal (none) [facility] Segmented neutrophils/100 WBC (Bld) 70 % 40 - 80 % [facility] WBC corrected for nucl RBC (Bld) [#/Vol] 9.20 10*3/uL 3.60 - 10.70 10*3/uL [facility] No Panel Informationon 06-15 Interpretation and review of laboratory results Abnormal [facility] Interpretation and review of laboratory results Abnormal [facility] Radiology Study observation (narrative) [facility] Interpretation and review of laboratory results Abnormal [facility] Coagulase-negative Staphylococcus Detected Abnormal Not Detected [facility] Interpretation and review of laboratory results Abnormal [facility] Interpretation and review of laboratory results Abnormal [facility] Interpretation and review of laboratory results Abnormal [facility] Interpretation and review of laboratory results Normal [facility] No Panel InformationOrdered By: Ramone Ellington on 06-15-2022 [facility] [employer] Work Phone: PT Coag (Bld) [Time]on 06-15 INR Coag (PPP) [Relative time] 1.2 {INR} High 0.9 - 1.1 [facility] Interpretation and review of laboratory results Abnormal [facility] Phosphate [Moles/Vol]on 05-31 Phosphate [Mass/Vol] 3.7 mg/dL 2.5 - 4 .5 mg/dL [facility] Bacteria identified Aer cx N om (Unsp spec)Ordered By: Kriss Davis on 06-14-2022 Gram Stain Result Many Polymorphonucle ar leukocytes per low power field Abnormal [facility] Gram Stain Result Positive Abnormal [facility] Gram Stain Result Negative Abnormal [facility] Interpretation and review of laboratory results Abnormal [facility] CBC W Auto Differential pane l (Bld)on 06-14-2022 Erythrocyte distribution width (RBC) [Ratio] 18.1 % High 11.5 - 14.5 % [facility] Hematocrit (Bld) [Volume fraction] 26.0 % Low 35.0 - 47.0 % [facility] Hemoglobin (Bld) [Mass/Vol] 8.2 g/dL Low 11.7 - 16.0 g/dL [facility] MCH (RBC) [Entitic mass] 25.6 pg Low 26.0 - 34.0 pg [facility] MCHC (RBC) [Mass/Vol] 31.4 % Low 32.0 - 36.0 % [facility] MCV (RBC) [Entitic vol] 81.5 fL 80.0 - 98.0 fL [facility] Nucleated RBC/100 WBC (Bld) [Ratio] 0.0 % [facility] Platelet mean volume (Bld) [Entitic vol] 11.6 fL 7.4 - 12.4 fL [facility] Platelets (Bld) [#/Vol] 81 10*3/uL Low 140 - 440 10*3/uL [facility] RBC (Bld) [#/Vol] 3.19 10*6/uL Low 3.8 - 5.20 10*6/uL [facility] WBC (Bld) [#/Vol] 11.4 10*3/uL High 3.6 - 10.7 10*3/uL [facility] Calcium.ionized [Moles/Vol]o n 06-14-2022 Calcium.ionized (Bld) [Moles/Vol] 4.30 mg/dL 4.30 - 5.20 mg/dL [facility] Interpretation and review of laboratory results Abnormal [facility] PH, IONIZED CALCIUM 7.48 High 7.31 - 7.46 [facility] Comprehensive metabolic 1998 panelon 06-14-2022 Albumin [Mass/Vol] 2.7 g/dL Low 3.5 - 5.0 g/dL [facility] ALP [Catalytic activity/Vol] 65 U/L 38 - 126 U/L [facility] ALT [Catalytic activity/Vol] 10 U/L 0 - 34 U/L [facility] Anion gap [Moles/Vol] 3 mmol/L 3 - 13 mmol/L [facility] AST [Catalytic activity/Vol] 22 U/L 15 - 46 U/L [facility] Bilirubin [Mass/Vol] 0.7 mg/dL 0.2 - 1 .3 mg/dL [facility] Calcium [Mass/Vol] 7.9 mg/dL Low 8.4 - 10. 4 mg/dL [facility] Chloride [Moles/Vol] 114 mmol/L High 98 - 10 7 mmol/L [facility] CO2 [Moles/Vol] 27 mmol/L 22 - 30 mmol/L [facility] Creatinine [Mass/Vol] 1.05 mg/dL High 0.52 - 1.04 mg/dL [facility] GFR/1.73 sq M.predicted MDRD (S/P/Bld) [Vol rate/Area] 56.2 mL/min/{1.73_m2} Low - PINF [facility] Glucose [Mass/Vol] 131 mg/dL High 70 - 100 mg/dL [facility] Interpretation and review of laboratory results Abnormal [facility] Potassium [Moles/Vol] 3.5 mmol/L 3.5 - 5.1 mmol/L [facility] Protein [Mass/Vol] 5.2 g/dL Low 6.3 - 8.2 g/dL [facility] Sodium [Moles/Vol] 143 mmol/L 135 - 145 mmol/L [facility] Urea nitrogen [Mass/Vol] 61 mg/dL High 7 - 17 mg/dL [facility] Laboratory - Chemistry and C hemistry - challengeon 06-14-2022 Glucose [Mass/Vol] 180 mg/dL High 70 - 100 mg/dL [facility] Glucose [Mass/Vol] 196 mg/dL High 70 - 100 mg/dL [facility] Glucose [Mass/Vol] 128 mg/dL High 70 - 100 mg/dL [facility] Magnesium [Mass/Vol] 1.8 mg/dL 1.6 - 2 .3 mg/dL [facility] Glucose [Mass/Vol] 136 mg/dL High 70 - 100 mg/dL [facility] Glucose [Mass/Vol] 182 mg/dL High 70 - 100 mg/dL [facility] Laboratory - Microbiology an d Antimicrobial susceptibilityOrdered By: Kriss Davis on 06-14-2022 Bacteria identified Aer cx Nom (Unsp spec) Moderate skin gaby present [facility] Bacteria identified Aer cx Nom (Unsp spec) Many Escherichia coli Abnormal [facility] Bacteria identified Aer cx Nom (Unsp spec) Few Proteus mirabilis Abnormal [facility] Manual differential performe d Ql (Bld)on 06-14-2022 Anisocytosis Ql (Bld) Slight Abnormal (none) [facility] Cells Counted Total (Bld) [#] 100 {cells} [facility] Dacrocytes LM Ql (Bld) Slight Abnormal (none) [facility] Hypochromia Ql (Bld) Slight Abnormal (none) [facility] Leukocyte morphology finding Nom (Bld) Normal [facility] Lymphocytes (Bld) [#/Vol] 2.6 10*3/uL 1.0 - 4.3 10*3/uL [facility] Lymphocytes Manual 23 [facility] Lymphocytes/100 WBC (Bld) 23 % 20 - 40 % [facility] Monocytes (Bld) [#/Vol] 0.1 10*3/uL 0.0 - 0.8 10*3/uL [facility] Monocytes Manual 1 [facility] Monocytes/100 WBC (Bld) 1 % Low 2 - 10 % [facility] Neutrophils (Bld) [#/Vol] 8.7 10*3/uL High 1.8 - 7.0 10*3/uL [facility] Neutrophils Manual 76 [facility] Ovalocytes LM Ql (Bld) Slight Abnormal (none) [facility] Platelet morphology finding Nom (Bld) Normal [facility] Poikilocytosis LM Ql (Bld) Slight Abnormal (none) [facility] Segmented neutrophils/100 WBC (Bld) 76 % 40 - 80 % [facility] WBC corrected for nucl RBC (Bld) [#/Vol] 11.40 10*3/uL High 3.60 - 10.70 10*3/uL [facility] No Panel Informationon 06-14 Interpretation and review of laboratory results Abnormal [facility] Interpretation and review of laboratory results Abnormal [facility] Interpretation and review of laboratory results Abnormal [facility] Interpretation and review of laboratory results Abnormal [facility] Interpretation and review of laboratory results Normal [facility] Interpretation and review of laboratory results Abnormal [facility] Interpretation and review of laboratory results Abnormal [facility] Phosphate [Moles/Vol]on 05-31 Phosphate [Mass/Vol] 3.1 mg/dL 2.5 - 4 .5 mg/dL [facility] Bacteria identified Cx Nom ( Bld)on 06-13-2022 Interpretation and review of laboratory results Abnormal [facility] Bacteria identified Cx Nom ( Bld)Ordered By: Simona Baires on 06-13-2022 Interpretation and review of laboratory results Abnormal [facility] Bacteria identified Cx Nom ( U)Ordered By: Adwoa Jefferson on 06-13-2022 Interpretation and review of laboratory results Abnormal [facility] CBC W Auto Differential pane l (Bld)Ordered By: Benito Breen on 06-13-2022 Basophils (Bld) [#/Vol] 0.0 10*3/uL 0.0 - 0.2 10*3/uL [facility] Basophils/100 WBC (Bld) 0.2 % 0.0 - 2.0 % [facility] Eosinophils (Bld) [#/Vol] 0.0 10*3/uL 0.0 - 0.5 10*3/uL [facility] Eosinophils/100 WBC (Bld) 0.1 % Low 1.0 - 6.0 % [facility] Erythrocyte distribution width (RBC) [Ratio] 17.9 % High 11.5 - 14.5 % [facility] Hematocrit (Bld) [Volume fraction] 25.6 % Low 35.0 - 47.0 % [facility] Hemoglobin (Bld) [Mass/Vol] 8.1 g/dL Low 11.7 - 16.0 g/dL [facility] Lymphocytes (Bld) [#/Vol] 1.0 10*3/uL 1.0 - 4.3 10*3/uL [facility] Lymphocytes/100 WBC (Bld) 12.3 % Low 20.0 - 40.0 % [facility] MCH (RBC) [Entitic mass] 25.8 pg Low 26.0 - 34.0 pg [facility] MCHC (RBC) [Mass/Vol] 31.7 % Low 32.0 - 36.0 % [facility] MCV (RBC) [Entitic vol] 81.2 fL 80.0 - 98.0 fL [facility] Monocytes (Bld) [#/Vol] 0.4 10*3/uL 0.0 - 0.8 10*3/uL [facility] Monocytes/100 WBC (Bld) 4.4 % 2.0 - 10.0 % [facility] Neutrophils (Bld) [#/Vol] 6.7 10*3/uL 1.8 - 7.0 10*3/uL [facility] Neutrophils/100 WBC (Bld) 83.0 % High 40.0 - 80.0 % [facility] Nucleated RBC/100 WBC (Bld) [Ratio] 0.0 % [facility] Platelet mean volume (Bld) [Entitic vol] 11.7 fL 7.4 - 12.4 fL [facility] Platelets (Bld) [#/Vol] 51 10*3/uL Low 140 - 440 10*3/uL [facility] RBC (Bld) [#/Vol] 3.15 10*6/uL Low 3.8 - 5.20 10*6/uL [facility] WBC (Bld) [#/Vol] 8.1 10*3/uL 3.6 - 10.7 10*3/uL [facility] Calcium.ionized [Moles/Vol]o n 06-13-2022 Calcium.ionized (Bld) [Moles/Vol] 4.40 mg/dL 4.30 - 5.20 mg/dL [facility] Interpretation and review of laboratory results Normal [facility] PH, IONIZED CALCIUM 7.39 7.31 - 7.46 [facility] Comprehensive metabolic 1998 panelon 06-13-2022 Albumin [Mass/Vol] 2.8 g/dL Low 3.5 - 5.0 g/dL [facility] ALP [Catalytic activity/Vol] 58 U/L 38 - 126 U/L [facility] ALT [Catalytic activity/Vol] 11 U/L 0 - 34 U/L [facility] Anion gap [Moles/Vol] 3 mmol/L 3 - 13 mmol/L [facility] AST [Catalytic activity/Vol] 20 U/L 15 - 46 U/L [facility] Bilirubin [Mass/Vol] 0.8 mg/dL 0.2 - 1 .3 mg/dL [facility] Calcium [Mass/Vol] 7.9 mg/dL Low 8.4 - 10. 4 mg/dL [facility] Chloride [Moles/Vol] 111 mmol/L High 98 - 10 7 mmol/L [facility] CO2 [Moles/Vol] 27 mmol/L 22 - 30 mmol/L [facility] Creatinine [Mass/Vol] 1.41 mg/dL High 0.52 - 1.04 mg/dL [facility] GFR/1.73 sq M.predicted MDRD (S/P/Bld) [Vol rate/Area] 39.5 mL/min/{1.73_m2} Low - PINF [facility] Glucose [Mass/Vol] 240 mg/dL High 70 - 100 mg/dL [facility] Interpretation and review of laboratory results Abnormal [facility] Potassium [Moles/Vol] 4.1 mmol/L 3.5 - 5.1 mmol/L [facility] Protein [Mass/Vol] 5.3 g/dL Low 6.3 - 8.2 g/dL [facility] Sodium [Moles/Vol] 141 mmol/L 135 - 145 mmol/L [facility] Urea nitrogen [Mass/Vol] 63 mg/dL High 7 - 17 mg/dL [facility] Laboratory - Chemistry and C hemistry - challengeon 06-13-2022 Glucose [Mass/Vol] 221 mg/dL High 70 - 100 mg/dL [facility] Glucose [Mass/Vol] 239 mg/dL High 70 - 100 mg/dL [facility] Glucose [Mass/Vol] 323 mg/dL High 70 - 100 mg/dL [facility] Glucose [Mass/Vol] 262 mg/dL High 70 - 100 mg/dL [facility] Magnesium [Mass/Vol] 1.9 mg/dL 1.6 - 2 .3 mg/dL [facility] Laboratory - Microbiology an d Antimicrobial susceptibilityon 06-13-2022 Bacteria identified Cx Nom (Bld) Escherichia coli Critically abnormal [facility] Laboratory - Microbiology an d Antimicrobial susceptibilityOrdered By: Adwoa Jefferson on 06-13-2022 Bacteria identified Cx Nom (U) 50,000-90,000 CFU/mL Escherichia coli Abnormal [facility] Laboratory - Microbiology an d Antimicrobial susceptibilityOrdered By: Simona Baires on 06-13-2022 Bacteria identified Cx Nom (Bld) Staphylococcus epidermidis Critically abnormal [facility] Bacteria identified Cx Nom (Bld) Escherichia coli Critically abnormal [facility] Bacteria identified Cx Nom (Bld) Staphylococcus warneri Critically abnormal [facility] Manual differential performe d Ql (Bld)on 06-13-2022 Anisocytosis Ql (Bld) Slight Abnormal (none) [facility] Dacrocytes LM Ql (Bld) Rare Abnormal (none) [facility] Hypochromia Ql (Bld) Slight Abnormal (none) [facility] Leukocyte morphology finding Nom (Bld) Normal [facility] Ovalocytes LM Ql (Bld) Slight Abnormal (none) [facility] Platelet morphology finding Nom (Bld) Normal [facility] Poikilocytosis LM Ql (Bld) Slight Abnormal (none) [facility] No Panel Informationon 06-13 Interpretation and review of laboratory results Abnormal [facility] Interpretation and review of laboratory results Abnormal [facility] Interpretation and review of laboratory results Abnormal [facility] Interpretation and review of laboratory results Abnormal [facility] Interpretation and review of laboratory results Abnormal [facility] Interpretation and review of laboratory results Normal [facility] Phosphate [Moles/Vol]on 05-31 Phosphate [Mass/Vol] 3.1 mg/dL 2.5 - 4 .5 mg/dL [facility] aPTT Coag (Bld) [Time]on aPTT Coag (PPP) [Time] 41.3 s High 20.0 - 30.5 s [facility] Interpretation and review of laboratory results Abnormal [facility] aPTT Coag (PPP) [Time] 42.1 s High 20.0 - 30.5 s [facility] Interpretation and review of laboratory results Abnormal [facility] Bacteria identified Cx Nom ( Bld)Ordered By: Theresa Solano on 06-12-2022 Interpretation and review of laboratory results Abnormal [facility] Bacteria identified Cx Nom ( U)Ordered By: Luis Mujica on 06-12-2022 Interpretation and review of laboratory results Normal [facility] Blood type and Crossmatch pa jakob (Bld)on 06-12-2022 ABO group Nom (Bld) A [facility] Blood group antibody screen GEL Ql Negative [facility] D Ag Ql (RBC) Positive [facility] CBC W Auto Differential pane l (Bld)Ordered By: Jh Real on 06-12-2022 Basophils (Bld) [#/Vol] 0.0 10*3/uL 0.0 - 0.2 10*3/uL [facility] Basophils/100 WBC (Bld) 0.1 % 0.0 - 2.0 % [facility] Eosinophils (Bld) [#/Vol] 0.0 10*3/uL 0.0 - 0.5 10*3/uL [facility] Eosinophils/100 WBC (Bld) 0.2 % Low 1.0 - 6.0 % [facility] Erythrocyte distribution width (RBC) [Ratio] 18.0 % High 11.5 - 14.5 % [facility] Hematocrit (Bld) [Volume fraction] 21.4 % Low 35.0 - 47.0 % [facility] Hemoglobin (Bld) [Mass/Vol] 6.9 g/dL Critically low 11.7 - 16.0 g/dL [facility] Interpretation and review of laboratory results Abnormal [facility] Lymphocytes (Bld) [#/Vol] 0.7 10*3/uL Low 1.0 - 4.3 10*3/uL [facility] Lymphocytes/100 WBC (Bld) 6.5 % Low 20.0 - 40.0 % [facility] MCH (RBC) [Entitic mass] 25.4 pg Low 26.0 - 34.0 pg [facility] MCHC (RBC) [Mass/Vol] 32.1 % 32.0 - 36.0 % [facility] MCV (RBC) [Entitic vol] 79.2 fL Low 80.0 - 98.0 fL [facility] Monocytes (Bld) [#/Vol] 0.5 10*3/uL 0.0 - 0.8 10*3/uL [facility] Monocytes/100 WBC (Bld) 4.2 % 2.0 - 10.0 % [facility] Neutrophils (Bld) [#/Vol] 10.2 10*3/uL High 1.8 - 7.0 10*3/uL [facility] Neutrophils/100 WBC (Bld) 89.0 % High 40.0 - 80.0 % [facility] Nucleated RBC/100 WBC (Bld) [Ratio] 0.0 % [facility] Platelet mean volume (Bld) [Entitic vol] 11.8 fL 7.4 - 12.4 fL [facility] Platelets (Bld) [#/Vol] 46 10*3/uL Low 140 - 440 10*3/uL [facility] RBC (Bld) [#/Vol] 2.70 10*6/uL Low 3.8 - 5.20 10*6/uL [facility] WBC (Bld) [#/Vol] 11.5 10*3/uL High 3.6 - 10.7 10*3/uL [facility] Calcium.ionized [Moles/Vol]o n 06-12-2022 Calcium.ionized (Bld) [Moles/Vol] 4.20 mg/dL Low 4.30 - 5.20 mg/dL [facility] Interpretation and review of laboratory results Abnormal [facility] PH, IONIZED CALCIUM 7.51 High 7.31 - 7.46 [facility] Comprehensive metabolic 1998 panelOrdered By: Digna Hernandez on 06-12-2022 Albumin [Mass/Vol] 2.3 g/dL Low 3.5 - 5.0 g/dL [facility] ALP [Catalytic activity/Vol] 50 U/L 38 - 126 U/L [facility] ALT [Catalytic activity/Vol] 9 U/L 0 - 34 U/L [facility] Anion gap [Moles/Vol] 5 mmol/L 3 - 13 mmol/L [facility] AST [Catalytic activity/Vol] 23 U/L 15 - 46 U/L [facility] Bilirubin [Mass/Vol] 0.9 mg/dL 0.2 - 1 .3 mg/dL [facility] Calcium [Mass/Vol] 6.6 mg/dL Low 8.4 - 10. 4 mg/dL [facility] Chloride [Moles/Vol] 115 mmol/L High 98 - 10 7 mmol/L [facility] CO2 [Moles/Vol] 22 mmol/L 22 - 30 mmol/L [facility] Creatinine [Mass/Vol] 1.43 mg/dL High 0.52 - 1.04 mg/dL [facility] GFR/1.73 sq M.predicted MDRD (S/P/Bld) [Vol rate/Area] 38.8 mL/min/{1.73_m2} Low - PINF [facility] Glucose [Mass/Vol] 171 mg/dL High 70 - 100 mg/dL [facility] Interpretation and review of laboratory results Abnormal [facility] Potassium [Moles/Vol] 3.0 mmol/L Low 3.5 - 5.1 mmol/L [facility] Protein [Mass/Vol] 4.6 g/dL Low 6.3 - 8.2 g/dL [facility] Sodium [Moles/Vol] 142 mmol/L 135 - 145 mmol/L [facility] Urea nitrogen [Mass/Vol] 55 mg/dL High 7 - 17 mg/dL [facility] Hemoglobin (Bld) [Mass/Vol]O rdered By: Simona Larios on 06-12-2022 Hematocrit (Bld) [Volume fraction] 23.6 % Low 35.0 - 47.0 % [facility] Interpretation and review of laboratory results Abnormal [facility] Laboratory - Chemistry and C hemistry - challengeon 06-12-2022 Glucose [Mass/Vol] 267 mg/dL High 70 - 100 mg/dL [facility] Glucose [Mass/Vol] 247 mg/dL High 70 - 100 mg/dL [facility] Glucose [Mass/Vol] 236 mg/dL High 70 - 100 mg/dL [facility] Glucose [Mass/Vol] 231 mg/dL High 70 - 100 mg/dL [facility] Magnesium [Mass/Vol] 1.6 mg/dL 1.6 - 2 .3 mg/dL [facility] Laboratory - Hematology and Cell countsOrdered By: Simona Larios on 06-12-2022 Hemoglobin (Bld) [Mass/Vol] 7.8 g/dL Low 11.7 - 16.0 g/dL [facility] Laboratory - Microbiology an d Antimicrobial susceptibilityOrdered By: Theresa Solano on 06-12-2022 Bacteria identified Cx Nom (Bld) Escherichia coli Critically abnormal [facility] Bacteria identified Cx Nom (Bld) Proteus mirabilis Critically abnormal [facility] Laboratory - Microbiology an d Antimicrobial susceptibilityOrdered By: Luis Mujica on 06-12-2022 Bacteria identified Cx Nom (U) No growth (<1,000 CFU/mL) [facility] Magnesium [Mass/Vol]on 06-12 Interpretation and review of laboratory results Normal [facility] No Panel Informationon 06-12 Interpretation and review of laboratory results Abnormal [facility] Interpretation and review of laboratory results Abnormal [facility] Interpretation and review of laboratory results Abnormal [facility] Blood Expiration Date [id number] S [facility] Crossmatch interpretation COMP [facility] Dispense Status Transfused [facility] Product Blood Type 6200 [facility] PRODUCT CODE [id number] [facility] Unit ABO A [facility] Unit Number [id number] [facility] Unit RH Positive [facility] Unit Volume 300 mL [facility] Interpretation and review of laboratory results Abnormal [facility] Phosphate [Moles/Vol]on 05-31 Interpretation and review of laboratory results Abnormal [facility] Phosphate [Mass/Vol] 2.1 mg/dL Low 2.5 - 4 .5 mg/dL [facility] aPTT Coag (Bld) [Time]on aPTT Coag (PPP) [Time] 57.6 s High 20.0 - 30.5 s [facility] Interpretation and review of laboratory results Abnormal [facility] aPTT Coag (PPP) [Time] 50.9 s High 20.0 - 30.5 s [facility] Interpretation and review of laboratory results Abnormal [facility] Bacteria identified Cx Nom ( U)Ordered By: Kavin Johnson on 06-11-2022 Interpretation and review of laboratory results Abnormal [facility] CBC W Auto Differential pane l (Bld)on 06-11-2022 Basophils (Bld) [#/Vol] 0.0 10*3/uL 0.0 - 0.2 10*3/uL [facility] Basophils/100 WBC (Bld) 0.1 % 0.0 - 2.0 % [facility] Eosinophils (Bld) [#/Vol] 0.5 10*3/uL 0.0 - 0.5 10*3/uL [facility] Eosinophils/100 WBC (Bld) 3.8 % 1.0 - 6.0 % [facility] Erythrocyte distribution width (RBC) [Ratio] 18.3 % High 11.5 - 14.5 % [facility] Hematocrit (Bld) [Volume fraction] 26.6 % Low 35.0 - 47.0 % [facility] Hemoglobin (Bld) [Mass/Vol] 8.4 g/dL Low 11.7 - 16.0 g/dL [facility] Lymphocytes (Bld) [#/Vol] 0.6 10*3/uL Low 1.0 - 4.3 10*3/uL [facility] Lymphocytes/100 WBC (Bld) 5.0 % Low 20.0 - 40.0 % [facility] MCH (RBC) [Entitic mass] 25.5 pg Low 26.0 - 34.0 pg [facility] MCHC (RBC) [Mass/Vol] 31.7 % Low 32.0 - 36.0 % [facility] MCV (RBC) [Entitic vol] 80.5 fL 80.0 - 98.0 fL [facility] Monocytes (Bld) [#/Vol] 0.4 10*3/uL 0.0 - 0.8 10*3/uL [facility] Monocytes/100 WBC (Bld) 3.1 % 2.0 - 10.0 % [facility] Neutrophils (Bld) [#/Vol] 11.1 10*3/uL High 1.8 - 7.0 10*3/uL [facility] Neutrophils/100 WBC (Bld) 88.0 % High 40.0 - 80.0 % [facility] Nucleated RBC/100 WBC (Bld) [Ratio] 0.0 % [facility] Platelet mean volume (Bld) [Entitic vol] 11.6 fL 7.4 - 12.4 fL [facility] Platelets (Bld) [#/Vol] 43 10*3/uL Low 140 - 440 10*3/uL [facility] RBC (Bld) [#/Vol] 3.30 10*6/uL Low 3.8 - 5.20 10*6/uL [facility] WBC (Bld) [#/Vol] 12.7 10*3/uL High 3.6 - 10.7 10*3/uL [facility] Calcium.ionized [Moles/Vol]o n 06-11-2022 Calcium.ionized (Bld) [Moles/Vol] 4.20 mg/dL Low 4.30 - 5.20 mg/dL [facility] Interpretation and review of laboratory results Abnormal [facility] PH, IONIZED CALCIUM 7.32 7.31 - 7.46 [facility] Comprehensive metabolic 1998 panelon 06-11-2022 Albumin [Mass/Vol] 3.5 g/dL 3.5 - 5.0 g/dL [facility] ALP [Catalytic activity/Vol] 80 U/L 38 - 126 U/L [facility] ALT [Catalytic activity/Vol] 11 U/L 0 - 34 U/L [facility] Anion gap [Moles/Vol] 9 mmol/L 3 - 13 mmol/L [facility] AST [Catalytic activity/Vol] 36 U/L 15 - 46 U/L [facility] Bilirubin [Mass/Vol] 1.5 mg/dL High 0.2 - 1 .3 mg/dL [facility] Calcium [Mass/Vol] 8.0 mg/dL Low 8.4 - 10. 4 mg/dL [facility] Chloride [Moles/Vol] 104 mmol/L 98 - 10 7 mmol/L [facility] CO2 [Moles/Vol] 25 mmol/L 22 - 30 mmol/L [facility] Creatinine [Mass/Vol] 2.29 mg/dL High 0.52 - 1.04 mg/dL [facility] GFR/1.73 sq M.predicted MDRD (S/P/Bld) [Vol rate/Area] 22.1 mL/min/{1.73_m2} Low - PINF [facility] Glucose [Mass/Vol] 190 mg/dL High 70 - 100 mg/dL [facility] Interpretation and review of laboratory results Abnormal [facility] Potassium [Moles/Vol] 3.6 mmol/L 3.5 - 5.1 mmol/L [facility] Protein [Mass/Vol] 6.2 g/dL Low 6.3 - 8.2 g/dL [facility] [facility] Sodium [Moles/Vol] 139 mmol/L 135 - 145 mmol/L [facility] Urea nitrogen [Mass/Vol] 57 mg/dL High 7 - 17 mg/dL [facility] Laboratory - Chemistry and C hemistry - challengeon 06-11-2022 Glucose [Mass/Vol] 237 mg/dL High 70 - 100 mg/dL [facility] Glucose [Mass/Vol] 187 mg/dL High 70 - 100 mg/dL [facility] Glucose [Mass/Vol] 165 mg/dL High 70 - 100 mg/dL [facility] Lactate [Moles/Vol] 1.6 mmol/L 0.7 - 2. 0 mmol/L [facility] Procalcitonin [Mass/Vol] 76.84 ng/mL High 0.00 - 0.09 ng/mL [facility] Glucose [Mass/Vol] 175 mg/dL High 70 - 100 mg/dL [facility] Lactate [Moles/Vol] 2.2 mmol/L Critically high 0.7 - 2.0 mmol/L [facility] Magnesium [Mass/Vol] 1.7 mg/dL 1.6 - 2 .3 mg/dL [facility] Laboratory - Microbiology an d Antimicrobial susceptibilityOrdered By: Kavin Johnson on 06-11-2022 Bacteria identified Cx Nom (U) Normal urogenital gaby present [facility] Bacteria identified Cx Nom (U) >100,000 CFU/mL Escherichia coli Abnormal [facility] Manual differential performe d Ql (Bld)on 06-11-2022 Anisocytosis Ql (Bld) Slight Abnormal (none) [facility] Dacrocytes LM Ql (Bld) Slight Abnormal (none) [facility] Leukocyte morphology finding Nom (Bld) Normal [facility] Ovalocytes LM Ql (Bld) Slight Abnormal (none) [facility] Platelet morphology finding Nom (Bld) Normal [facility] Poikilocytosis LM Ql (Bld) Slight Abnormal (none) [facility] Schistocytes LM Ql (Bld) Slight Abnormal (none) [facility] No Panel Informationon 06-11 Interpretation and review of laboratory results Abnormal [facility] Interpretation and review of laboratory results Abnormal [facility] Interpretation and review of laboratory results Abnormal [facility] Interpretation and review of laboratory results Normal [facility] Interpretation and review of laboratory results Abnormal [facility] Interpretation and review of laboratory results Abnormal [facility] Interpretation and review of laboratory results Abnormal [facility] Interpretation and review of laboratory results Normal [facility] Phosphate [Moles/Vol]on 05-31 Phosphate [Mass/Vol] 3.1 mg/dL 2.5 - 4 .5 mg/dL [facility] Procalcitonin [Mass/Vol]on 06-11-2022 Interpretation and review of laboratory results Abnormal [facility] aPTT Coag (Bld) [Time]on aPTT Coag (PPP) [Time] 52.8 s High 20.0 - 30.5 s [facility] Interpretation and review of laboratory results Abnormal [facility] aPTT Coag (PPP) [Time] 63.8 s High 20.0 - 30.5 s [facility] Interpretation and review of laboratory results Abnormal [facility] CBC W Auto Differential pane l (Bld)Ordered By: Torres Bhatia on 06-10-2022 Erythrocyte distribution width (RBC) [Ratio] 18.3 % High 11.5 - 14.5 % [facility] Hematocrit (Bld) [Volume fraction] 28.7 % Low 35.0 - 47.0 % [facility] Hemoglobin (Bld) [Mass/Vol] 8.8 g/dL Low 11.7 - 16.0 g/dL [facility] MCH (RBC) [Entitic mass] 25.2 pg Low 26.0 - 34.0 pg [facility] MCHC (RBC) [Mass/Vol] 30.8 % Low 32.0 - 36.0 % [facility] MCV (RBC) [Entitic vol] 81.9 fL 80.0 - 98.0 fL [facility] Nucleated RBC/100 WBC (Bld) [Ratio] 0.0 % [facility] Platelet mean volume (Bld) [Entitic vol] 11.2 fL 7.4 - 12.4 fL [facility] Platelets (Bld) [#/Vol] 67 10*3/uL Low 140 - 440 10*3/uL [facility] RBC (Bld) [#/Vol] 3.50 10*6/uL Low 3.8 - 5.20 10*6/uL [facility] WBC (Bld) [#/Vol] 11.4 10*3/uL High 3.6 - 10.7 10*3/uL [facility] CT Abdomen WO contraston [facility] [place] [facility] RAD[facility]OLOG[facility] Radiology Study observation (narrative) [facility] CT Abdomen WO contrastOrdere d By: Carlos Martinez on 06-10-2022 [facility] [employer] Work Phone: Comprehensive metabolic 1998 panelon 06-10-2022 Albumin [Mass/Vol] 3.6 g/dL 3.5 - 5.0 g/dL [facility] ALP [Catalytic activity/Vol] 77 U/L 38 - 126 U/L [facility] ALT [Catalytic activity/Vol] 12 U/L 0 - 34 U/L [facility] Anion gap [Moles/Vol] 9 mmol/L 3 - 13 mmol/L [facility] AST [Catalytic activity/Vol] 35 U/L 15 - 46 U/L [facility] Bilirubin [Mass/Vol] 1.6 mg/dL High 0.2 - 1 .3 mg/dL [facility] Calcium [Mass/Vol] 8.0 mg/dL Low 8.4 - 10. 4 mg/dL [facility] Chloride [Moles/Vol] 107 mmol/L 98 - 10 7 mmol/L [facility] CO2 [Moles/Vol] 24 mmol/L 22 - 30 mmol/L [facility] Creatinine [Mass/Vol] 2.40 mg/dL High 0.52 - 1.04 mg/dL [facility] GFR/1.73 sq M.predicted MDRD (S/P/Bld) [Vol rate/Area] 20.8 mL/min/{1.73_m2} Low - PINF [facility] Glucose [Mass/Vol] 216 mg/dL High 70 - 100 mg/dL [facility] Interpretation and review of laboratory results Abnormal [facility] Potassium [Moles/Vol] 3.9 mmol/L 3.5 - 5.1 mmol/L [facility] Protein [Mass/Vol] 6.0 g/dL Low 6.3 - 8.2 g/dL [facility] Sodium [Moles/Vol] 140 mmol/L 135 - 145 mmol/L [facility] Urea nitrogen [Mass/Vol] 57 mg/dL High 7 - 17 mg/dL [facility] Albumin [Mass/Vol] 3.6 g/dL 3.5 - 5.0 g/dL [facility] ALP [Catalytic activity/Vol] 80 U/L 38 - 126 U/L [facility] ALT [Catalytic activity/Vol] 12 U/L 0 - 34 U/L [facility] Anion gap [Moles/Vol] 14 mmol/L High 3 - 13 mmol/L [facility] AST [Catalytic activity/Vol] 27 U/L 15 - 46 U/L [facility] Bilirubin [Mass/Vol] 1.4 mg/dL High 0.2 - 1 .3 mg/dL [facility] Calcium [Mass/Vol] 8.2 mg/dL Low 8.4 - 10. 4 mg/dL [facility] Chloride [Moles/Vol] 109 mmol/L High 98 - 10 7 mmol/L [facility] CO2 [Moles/Vol] 18 mmol/L Low 22 - 30 mmol/L [facility] Creatinine [Mass/Vol] 2.57 mg/dL High 0.52 - 1.04 mg/dL [facility] GFR/1.73 sq M.predicted MDRD (S/P/Bld) [Vol rate/Area] 19.2 mL/min/{1.73_m2} Low - PINF [facility] Glucose [Mass/Vol] 209 mg/dL High 70 - 100 mg/dL [facility] Interpretation and review of laboratory results Abnormal [facility] Potassium [Moles/Vol] 3.8 mmol/L 3.5 - 5.1 mmol/L [facility] Protein [Mass/Vol] 6.0 g/dL Low 6.3 - 8.2 g/dL [facility] Sodium [Moles/Vol] 142 mmol/L 135 - 145 mmol/L [facility] Urea nitrogen [Mass/Vol] 52 mg/dL High 7 - 17 mg/dL [facility] Comprehensive metabolic 1998 panelOrdered By: Darrick Gonzalez on 06-10-2022 Albumin [Mass/Vol] 2.9 g/dL Low 3.5 - 5.0 g/dL [facility] ALP [Catalytic activity/Vol] 150 U/L High 38 - 126 U/L [facility] ALT [Catalytic activity/Vol] 11 U/L 0 - 34 U/L [facility] Anion gap [Moles/Vol] 12 mmol/L 3 - 13 mmol/L [facility] AST [Catalytic activity/Vol] 24 U/L 15 - 46 U/L [facility] Bilirubin [Mass/Vol] 1.3 mg/dL 0.2 - 1 .3 mg/dL [facility] Calcium [Mass/Vol] 8.2 mg/dL Low 8.4 - 10. 4 mg/dL [facility] Chloride [Moles/Vol] 109 mmol/L High 98 - 10 7 mmol/L [facility] CO2 [Moles/Vol] 19 mmol/L Low 22 - 30 mmol/L [facility] Creatinine [Mass/Vol] 2.40 mg/dL High 0.52 - 1.04 mg/dL [facility] GFR/1.73 sq M.predicted MDRD (S/P/Bld) [Vol rate/Area] 20.8 mL/min/{1.73_m2} Low - PINF [facility] Glucose [Mass/Vol] 219 mg/dL High 70 - 100 mg/dL [facility] Interpretation and review of laboratory results Abnormal [facility] Potassium [Moles/Vol] 3.5 mmol/L 3.5 - 5.1 mmol/L [facility] Protein [Mass/Vol] 5.6 g/dL Low 6.3 - 8.2 g/dL [facility] Sodium [Moles/Vol] 140 mmol/L 135 - 145 mmol/L [facility] Urea nitrogen [Mass/Vol] 49 mg/dL High 7 - 17 mg/dL [facility] Laboratory - Chemistry and C hemistry - challengeon 06-10-2022 Glucose [Mass/Vol] 226 mg/dL High 70 - 100 mg/dL [facility] Lactate [Moles/Vol] 2.1 mmol/L Critically high 0.7 - 2.0 mmol/L [facility] Lactate [Moles/Vol] 1.3 mmol/L 0.7 - 2. 0 mmol/L [facility] Glucose [Mass/Vol] 224 mg/dL High 70 - 100 mg/dL [facility] Sodium (24H U) [Mass/Vol] 21 mmol/L Low 30 - 90 mmol/L [facility] Glucose [Mass/Vol] 198 mg/dL High 70 - 100 mg/dL [facility] Glucose [Mass/Vol] 216 mg/dL High 70 - 100 mg/dL [facility] Lactate [Moles/Vol] 4.7 mmol/L Critically high 0.7 - 2.0 mmol/L [facility] Glucose [Mass/Vol] 218 mg/dL High 70 - 100 mg/dL [facility] Magnesium [Mass/Vol] 1.6 mg/dL 1.6 - 2 .3 mg/dL [facility] Laboratory - Chemistry and C hemistry - challengeOrdered By: Kristi Jacobo on 06-10-2022 Lactate [Moles/Vol] 2.6 mmol/L Critically high 0.7 - 2.0 mmol/L [facility] Laboratory - Drug toxicology on 06-10-2022 Vancomycin [Mass/Vol] 5.9 ug/mL Low 15.0 - 20.0 ug/mL [facility] Laboratory - Urinalysison Protein (U) [Mass/Vol] 271 mg/dL High 0 - 1 2 mg/dL [facility] [employer] Manual differential performe d Ql (Bld)on 06-10-2022 Anisocytosis Ql (Bld) Slight Abnormal (none) [facility] [employer] Band form neutrophils (Bld) [#/Vol] 0.9 10*3/uL High NINF - 0.0 10*3/uL [facility] [employer] Band form neutrophils/100 WBC (Bld) 8 % High NINF - 0 % [facility] Bands Manual 8 [facility] [place] cells LM Ql (Bld) Slight Abnormal (none) [facility] Cells Counted Total (Bld) [#] 100 {cells} [facility] [employer] Dacrocytes LM Ql (Bld) Rare Abnormal (none) [facility] Dohle body LM Ql (Bld) Present Abnormal (none) [facility] Lymphocytes (Bld) [#/Vol] 0.3 10*3/uL Low 1.0 - 4.3 10*3/uL [facility] [employer] Lymphocytes Manual 3 [facility] [employer] Lymphocytes/100 WBC (Bld) 3 % Low 20 - 40 % [facility] Metamyelocytes (Bld) [#/Vol] 0.2 10*3/uL High NINF - 0.0 10*3/uL [facility] [employer] Metamyelocytes Manual 2 [facility] [employer] Metamyelocytes/100 WBC (Bld) 2 % High NINF - 0 % [facility] Neutrophils (Bld) [#/Vol] 10.8 10*3/uL High 1.8 - 7.0 10*3/uL [facility] Neutrophils Manual 87 [facility] Neutrophils.vacuolated LM Ql (Bld) Present Abnormal (none) [facility] Ovalocytes LM Ql (Bld) Slight Abnormal (none) [facility] Platelet morphology finding Nom (Bld) Normal [facility] Poikilocytosis LM Ql (Bld) Slight Abnormal (none) [facility] Segmented neutrophils/100 WBC (Bld) 87 % High 40 - 80 % [facility] WBC corrected for nucl RBC (Bld) [#/Vol] 11.40 10*3/uL High 3.60 - 10.70 10*3/uL [facility] Microalbumin/Creatinine rati o panel (U)on 06-10-2022 Albumin DL <= 20 mg/L (U) [Mass/Vol] 946.4 mg/L High 0.0 - 29.9 mg/L [facility] Albumin/Creatinine DL <= 20 mg/L (U) [Mass ratio] 1338.6 mg/g High 0.0 - 29.9 mg/g [facility] CREATININE, URINE 70.7 mg/dL No Range [facility] Interpretation and review of laboratory results Abnormal [facility] No Panel Informationon 06-10 Interpretation and review of laboratory results Abnormal [facility] Interpretation and review of laboratory results Abnormal [facility] Interpretation and review of laboratory results Normal [facility] Interpretation and review of laboratory results Abnormal [facility] Interpretation and review of laboratory results Abnormal [facility] Interpretation and review of laboratory results Abnormal [facility] Interpretation and review of laboratory results Abnormal [facility] Interpretation and review of laboratory results Abnormal [facility] Interpretation and review of laboratory results Abnormal [facility] Interpretation and review of laboratory results Abnormal [facility] Interpretation and review of laboratory results Abnormal [facility] Interpretation and review of laboratory results Normal [facility] No Panel InformationOrdered By: Kristi Jacobo on 06-10-2022 Interpretation and review of laboratory results Abnormal [facility] No Panel InformationOrdered By: Torres Bhatia on 06-10-2022 Interpretation and review of laboratory results Abnormal [facility] No Panel InformationOrdered By: Sushil Pena on 06-10-2022 CTX-M (ESBL gene) Detected Abnormal Not Detected [facility] Escherichia coli Detected Abnormal Not Detected [facility] Interpretation and review of laboratory results Abnormal [facility] mecA/C (MRSE/MRSL) Detected Abnormal Not Detected [facility] Staphylococcus epidermidis Detected Abnormal Not Detected [facility] Phosphate [Moles/Vol]on 05-31 Phosphate [Mass/Vol] 2.9 mg/dL 2.5 - 4 .5 mg/dL [facility] US Heart Transthoracicon Ao Root Index 1.28 cm/m2 [facility] Aortic Root 3.0 cm [facility] Ascending Aorta 3.1 cm [facility] Ascending Aorta Index 1.32 cm/m2 [facility] AV Area by Peak Velocity 2.1 cm2 [facility] AV Area by VTI 2.3 cm2 [facility] AV Mean Gradient 5 mmHg [facility] AV Mean Velocity 1.0 m/s [facility] AV Peak Gradient 9 mmHg [facility] AV Peak Velocity 1.5 m/s [facility] AV Velocity Ratio 0.67 [facility] AV VTI 29.3 cm [facility] ROSE/BSA Peak Velocity 0.9 cm2/m2 [facility] ROSE/BSA VTI 1.0 cm2/m2 [facility] E/E' Lateral 17.88 [facility] E/E' Ratio (Averaged) 19.[address] [facility] E/E' Septal 20.43 [facility] EF BP 60 % 55 - 100 % [facility] Est. RA Pressure 8 mmHg [facility] Fractional Shortening 2D 30 % 28 - 44 % [facility] Interpretation and review of laboratory results Abnormal [facility] IVSd 1.4 cm Abnormal 0.6 - 0.9 cm [facility] LA Diameter 3.5 cm [facility] LA Size Index 1.50 cm/m2 [facility] LA Volume 2C 105 mL Abnormal 22 - 52 mL [facility] LA Volume 4C 113 mL Abnormal 22 - 52 mL [facility] LA Volume A/L 133 mL [facility] LA Volume BP 122 mL Abnormal 22 - 52 mL [facility] LA Volume Index 2C 45 mL/m2 Abnormal 16 - 34 mL/m2 [facility] [place] Volume Index 4C 48 mL/m2 Abnormal 16 - 34 mL/m2 [facility] [place] Volume Index A/L 57 mL/m2 16 - 34 mL/m2 [facility] [place] Volume Index BP 52 ml/m2 Abnormal 16 - 34 ml/m2 [facility] LA/AO Root Ratio 1.17 [facility] LV E' Lateral Velocity 8 cm/s [facility] LV E' Septal Velocity 7 cm/s [facility] LV EDV A2C 81 mL [facility] LV EDV A4C 92 mL [facility] LV EDV BP 90 mL 56 - 104 mL [facility] LV EDV Index A2C 35 mL/m2 [facility] LV EDV Index A4C 39 mL/m2 [facility] LV EDV Index BP 38 mL/m2 [facility] LV Ejection Fraction A2C 60 % [facility] LV Ejection Fraction A4C 57 % [facility] LV ESV A2C 33 mL [facility] LV ESV A4C 40 mL [facility] LV ESV BP 36 mL 19 - 49 mL [facility] [employer] LV ESV Index A2C 14 mL/m2 [facility] LV ESV Index A4C 17 mL/m2 [facility] LV ESV Index BP 15 mL/m2 [facility] LV Mass 2D 230.2 g Abnormal 67 - 162 g [facility] LV Mass 2D Index 98.4 g/m2 Abnormal 43 - 95 g/m2 [facility] LV RWT Ratio 0.52 [facility] LVIDd 4.6 cm 3.9 - 5.3 cm [facility] LVIDd Index 1.97 cm/m2 [facility] [employer] LVIDs 3.2 cm [facility] [employer] LVIDs Index 1.37 cm/m2 [facility] [employer] LVOT Area 3.1 cm2 [facility] [employer] LVOT Cardiac Output 5.7 liter/mi nut e [facility] LVOT Diameter 2.0 cm [facility] [employer] LVOT Mean Gradient 2 mmHg [facility] [employer] LVOT Peak Gradient 4 mmHg [facility] LVOT Peak Velocity 1.0 m/s [facility] [employer] LVOT Stroke Volume Index 29.1 mL/m2 [facility] [employer] LVOT SV 68.1 ml [facility] [employer] LVOT VTI 21.7 cm [facility] [employer] LVOT:AV VTI Index 0.74 [facility] [employer] LVPWd 1.2 cm Abnormal 0.6 - 0.9 cm [facility] MV A Velocity 1.05 m/s [facility] MV E Velocity 1.43 m/s [facility] MV E Wave Deceleration Time 168.5 ms [facility] MV E/A 1.36 [facility] MV Mean Gradient 4 mmHg [facility] MV Peak Gradient 8 mmHg [facility] PV Max Velocity 1.1 m/s [facility] PV Mean Gradient 2 mmHg [facility] PV Mean Velocity 0.7 m/s [facility] PV Peak Gradient 4 mmHg [facility] PV VTI 21.9 cm [facility] RA Area 4C 50.7 mL [facility] RA Area 4C 48.9 mL [facility] RV Basal Dimension 3.1 cm [facility] RV Free Wall Peak S' 12 cm/s [facility] RV Mid Dimension 2.8 cm [facility] RVSP 46 mmHg [facility] TAPSE 2.0 cm 1.7 cm [facility] TR Max Velocity 3.10 m/s [facility] CV CPACS [facility] Urinalysis complete panel (U )on 06-10-2022 Bacteria LM.HPF (Urine sed) [#/Area] Few Abnormal Negative /HPF [facility] Bilirubin Ql (U) Negative Negative mg/dL [facility] Clarity (U) Turbid Abnormal Clear [facility] Color (U) Yellow Lt. Yellow [facility] Epithelial cells.squamous LM.HPF (Urine sed) [#/Area] 0-2 [facility] Glucose Ql (U) Normal Normal (<70) mg/dL [facility] Hemoglobin Ql (U) >1.0 Abnormal Negative mg/dL [facility] Hyaline casts Auto (Urine sed) [#/Area] 3-5 Abnormal Negative /LPF [facility] Interpretation and review of laboratory results Abnormal [facility] Ketones (U) [Mass/Vol] Negative Negat iris mg/dL [facility] Leukocyte esterase Test strip Ql (U) 250 Abnormal Negative Jimenez/uL [facility] Nitrite Ql (U) Negative Negative [facility] Non-Squamous Epithalial Cells, Urine 0-2 Abnormal Negative /HPF [facility] pH (U) 5.5 [pH] 5.0 - 8.0 pH [facility] Protein (U) [Mass/Vol] 100 mg/dL Abnormal Negative [facility] RBC LM.HPF (Urine sed) [#/Area] 26-50 Abnormal [facility] Specific gravity (U) [Rel density] 1.016 1.005 - 1.030 [facility] Urobilinogen (U) [Mass/Vol] Normal Normal (0-1) mg/dL [facility] WBC LM.HPF (Urine sed) [#/Area] 3-5 [facility] XR Chest Single viewon 06-10 [facility] [place] [facility] RADIOLOGY [facility] Radiology Study observation (narrative) [facility] XR Chest Single viewOrdered By: Bashir Barnes on 06-10-2022 [facility] Work Phone: aPTT Coag (Bld) [Time]on aPTT Coag (PPP) [Time] 54.2 s High 20.0 - 30.5 s [facility] Interpretation and review of laboratory results Abnormal [facility] aPTT Coag (PPP) [Time] 53.0 s High 20.0 - 30.5 s [facility] Interpretation and review of laboratory results Abnormal [facility] aPTT Coag (PPP) [Time] 59.5 s High 20.0 - 30.5 s [facility] Interpretation and review of laboratory results Abnormal [facility] aPTT Coag (PPP) [Time] 46.1 s High 20.0 - 30.5 s [facility] Interpretation and review of laboratory results Abnormal [facility] aPTT Coag (Bld) [Time]Ordere d By: Ally Olmstead on 06-10-2022 aPTT Coag (PPP) [Time] 130.6 s Critically high 20 .0 - 30.5 s [facility] Interpretation and review of laboratory results Abnormal [facility] Basic metabolic 1998 panelon 06-09-2022 Anion gap [Moles/Vol] 5 mmol/L 3 - 13 mmol/L [facility] Calcium [Mass/Vol] 8.4 mg/dL 8.4 - 10. 4 mg/dL [facility] Chloride [Moles/Vol] 109 mmol/L High 98 - 10 7 mmol/L [facility] CO2 [Moles/Vol] 25 mmol/L 22 - 30 mmol/L [facility] Creatinine [Mass/Vol] 2.27 mg/dL High 0.52 - 1.04 mg/dL [facility] GFR/1.73 sq M.predicted MDRD (S/P/Bld) [Vol rate/Area] 22.3 mL/min/{1.73_m2} Low - PINF [facility] [employer] Glucose [Mass/Vol] 221 mg/dL High 70 - 100 mg/dL [facility] [employer] Potassium [Moles/Vol] 4.3 mmol/L 3.5 - 5.1 mmol/L [facility] [employer] Sodium [Moles/Vol] 138 mmol/L 135 - 145 mmol/L [facility] [employer] Urea nitrogen [Mass/Vol] 49 mg/dL High 7 - 17 mg/dL [facility] CBC W Auto Differential pane l (Bld)Ordered By: Kendall Soliz on 06-09-2022 Erythrocyte distribution width (RBC) [Ratio] 18.4 % High 11.5 - 14.5 % [facility] [employer] Hematocrit (Bld) [Volume fraction] 23.8 % Low 35.0 - 47.0 % [facility] Hemoglobin (Bld) [Mass/Vol] 7.6 g/dL Low 11.7 - 16.0 g/dL [facility] MCH (RBC) [Entitic mass] 25.8 pg Low 26.0 - 34.0 pg [facility] MCHC (RBC) [Mass/Vol] 31.9 % Low 32.0 - 36.0 % [facility] MCV (RBC) [Entitic vol] 80.8 fL 80.0 - 98.0 fL [facility] Nucleated RBC/100 WBC (Bld) [Ratio] 0.0 % [facility] Platelet mean volume (Bld) [Entitic vol] 10.3 fL 7.4 - 12.4 fL [facility] Platelets (Bld) [#/Vol] 107 10*3/uL Low 140 - 440 10*3/uL [facility] RBC (Bld) [#/Vol] 2.95 10*6/uL Low 3.8 - 5.20 10*6/uL [facility] [employer] WBC (Bld) [#/Vol] 9.3 10*3/uL 3.6 - 10.7 10*3/uL [facility] CBC W Auto Differential pane l (Bld)Ordered By: Mickey Pickett on 06-09-2022 Basophils (Bld) [#/Vol] 0.0 10*3/uL 0.0 - 0.2 10*3/uL [facility] Basophils/100 WBC (Bld) 0.2 % 0.0 - 2.0 % [facility] Eosinophils (Bld) [#/Vol] 0.0 10*3/uL 0.0 - 0.5 10*3/uL [facility] Eosinophils/100 WBC (Bld) 0.1 % Low 1.0 - 6.0 % [facility] Erythrocyte distribution width (RBC) [Ratio] 18.4 % High 11.5 - 14.5 % [facility] Hematocrit (Bld) [Volume fraction] 30.1 % Low 35.0 - 47.0 % [facility] Hemoglobin (Bld) [Mass/Vol] 9.5 g/dL Low 11.7 - 16.0 g/dL [facility] Interpretation and review of laboratory results Abnormal [facility] Lymphocytes (Bld) [#/Vol] 0.3 10*3/uL Low 1.0 - 4.3 10*3/uL [facility] Lymphocytes/100 WBC (Bld) 3.1 % Low 20.0 - 40.0 % [facility] MCH (RBC) [Entitic mass] 25.5 pg Low 26.0 - 34.0 pg [facility] MCHC (RBC) [Mass/Vol] 31.7 % Low 32.0 - 36.0 % [facility] MCV (RBC) [Entitic vol] 80.5 fL 80.0 - 98.0 fL [facility] Monocytes (Bld) [#/Vol] 0.3 10*3/uL 0.0 - 0.8 10*3/uL [facility] Monocytes/100 WBC (Bld) 3.1 % 2.0 - 10.0 % [facility] Neutrophils (Bld) [#/Vol] 9.5 10*3/uL High 1.8 - 7.0 10*3/uL [facility] Neutrophils/100 WBC (Bld) 93.5 % High 40.0 - 80.0 % [facility] Nucleated RBC/100 WBC (Bld) [Ratio] 0.0 % [facility] Platelet mean volume (Bld) [Entitic vol] 10.5 fL 7.4 - 12.4 fL [facility] Platelets (Bld) [#/Vol] 116 10*3/uL Low 140 - 440 10*3/uL [facility] RBC (Bld) [#/Vol] 3.74 10*6/uL Low 3.8 - 5.20 10*6/uL [facility] WBC (Bld) [#/Vol] 10.2 10*3/uL 3.6 - 10.7 10*3/uL [facility] CK [Catalytic activity/Vol]o n 06-09-2022 Interpretation and review of laboratory results Normal [facility] CT Head WO contraston 2022 [facility] RADIOLOG[facility] Radiology Study observation (narrative) [facility] Comprehensive metabolic 1998 panelon 06-09-2022 Albumin [Mass/Vol] 3.1 g/dL Low 3.5 - 5.0 g/dL [facility] ALP [Catalytic activity/Vol] 64 U/L 38 - 126 U/L [facility] ALT [Catalytic activity/Vol] 9 U/L 0 - 34 U/L [facility] Anion gap [Moles/Vol] 7 mmol/L 3 - 13 mmol/L [facility] AST [Catalytic activity/Vol] 23 U/L 15 - 46 U/L [facility] Bilirubin [Mass/Vol] 0.9 mg/dL 0.2 - 1 .3 mg/dL [facility] Calcium [Mass/Vol] 7.8 mg/dL Low 8.4 - 10. 4 mg/dL [facility] Chloride [Moles/Vol] 109 mmol/L High 98 - 10 7 mmol/L [facility] CO2 [Moles/Vol] 23 mmol/L 22 - 30 mmol/L [facility] Creatinine [Mass/Vol] 2.11 mg/dL High 0.52 - 1.04 mg/dL [facility] GFR/1.73 sq M.predicted MDRD (S/P/Bld) [Vol rate/Area] 24.3 mL/min/{1.73_m2} Low - PINF [facility] Glucose [Mass/Vol] 283 mg/dL High 70 - 100 mg/dL [facility] Interpretation and review of laboratory results Abnormal [facility] Potassium [Moles/Vol] 4.5 mmol/L 3.5 - 5.1 mmol/L [facility] Protein [Mass/Vol] 6.0 g/dL Low 6.3 - 8.2 g/dL [facility] Sodium [Moles/Vol] 138 mmol/L 135 - 145 mmol/L [facility] Urea nitrogen [Mass/Vol] 47 mg/dL High 7 - 17 mg/dL [facility] Hepatic function 2000 panelo n 06-09-2022 Albumin [Mass/Vol] 2.9 g/dL Low 3.5 - 5.0 g/dL [facility] ALP [Catalytic activity/Vol] 120 U/L 38 - 126 U/L [facility] ALT [Catalytic activity/Vol] 11 U/L 0 - 34 U/L [facility] AST [Catalytic activity/Vol] 24 U/L 15 - 46 U/L [facility] Bilirubin [Mass/Vol] 1.0 mg/dL 0.2 - 1 .3 mg/dL [facility] Bilirubin.conjugated [Mass/Vol] 0.0 mg/dL 0.0 - 0.3 mg/dL [facility] Protein [Mass/Vol] 6.1 g/dL Low 6.3 - 8.2 g/dL [facility] Laboratory - Chemistry and C hemistry - challengeon 06-09-2022 Glucose [Mass/Vol] 187 mg/dL High 70 - 100 mg/dL [facility] Procalcitonin [Mass/Vol] 17.91 ng/mL High 0.00 - 0.09 ng/mL [facility] Glucose [Mass/Vol] 293 mg/dL High 70 - 100 mg/dL [facility] Troponin I.cardiac [Mass/Vol] 0.037 ng/mL High 0.000 - 0.034 ng/mL [facility] Lactate [Moles/Vol] 1.9 mmol/L 0.7 - 2. 0 mmol/L [facility] Ammonia (P) [Moles/Vol] umol/L Low 9 - 30 umol/L [facility] CK [Catalytic activity/Vol] 106 U/L 30 - 170 U/L [facility] Lipase [Catalytic activity/Vol] U/L Low 23 - 300 U/L [facility] Base excess Calc (BldV) [Moles/Vol] -2.2000 mmol/L -3 - 3 mmol/L [facility] CO2 (BldV) [Partial pressure] 35.7 mm[Hg] Low [facility] CO2 [Moles/Vol] 23.3 mmol/L Low 24.0 - 28.0 mmol/L [facility] HCO3 (Bld) [Moles/Vol] 22.2 mmol/L Low 23.0 - 27.0 mmol/L [facility] Oxygen (BldV) [Partial pressure] 45.6 mm[Hg] [facility] pH (BldV) 7.403 [pH] 7.330 - 7.430 pH [facility] Laboratory - Chemistry and C hemistry - challengeOrdered By: Ana Harrison on 06-09-2022 Lactate [Moles/Vol] 2.9 mmol/L Critically high 0.7 - 2.0 mmol/L [facility] Manual differential performe d Ql (Bld)on 06-09-2022 Anisocytosis Ql (Bld) Slight Abnormal (none) [facility] Band form neutrophils (Bld) [#/Vol] 0.1 10*3/uL High NINF - 0.0 10*3/uL [facility] Band form neutrophils/100 WBC (Bld) 1 % High NINF - 0 % [facility] Bands Manual 1 [facility] [place] cells LM Ql (Bld) Slight Abnormal (none) [facility] Cells Counted Total (Bld) [#] 100 {cells} [facility] Dacrocytes LM Ql (Bld) Rare Abnormal (none) [facility] Lymphocytes (Bld) [#/Vol] 0.6 10*3/uL Low 1.0 - 4.3 10*3/uL [facility] Lymphocytes Manual 6 [facility] Lymphocytes/100 WBC (Bld) 6 % Low 20 - 40 % [facility] Metamyelocytes (Bld) [#/Vol] 0.4 10*3/uL High NINF - 0.0 10*3/uL [facility] Metamyelocytes Manual 4 [facility] Metamyelocytes/100 WBC (Bld) 4 % High NINF - 0 % [facility] Monocytes (Bld) [#/Vol] 0.3 10*3/uL 0.0 - 0.8 10*3/uL [facility] Monocytes Manual 3 [facility] Monocytes/100 WBC (Bld) 3 % 2 - 10 % [facility] Neutrophils (Bld) [#/Vol] 8.1 10*3/uL High 1.8 - 7.0 10*3/uL [facility] Neutrophils Manual 86 [facility] Neutrophils.vacuolated LM Ql (Bld) Present Abnormal (none) [facility] Ovalocytes LM Ql (Bld) Slight Abnormal (none) [facility] Platelet morphology finding Nom (Bld) Normal [facility] Poikilocytosis LM Ql (Bld) Slight Abnormal (none) [facility] Segmented neutrophils/100 WBC (Bld) 86 % High 40 - 80 % [facility] Toxic granules LM Ql (Bld) Present Abnormal (none) [facility] WBC corrected for nucl RBC (Bld) [#/Vol] 9.30 10*3/uL 3.60 - 10.70 10*3/uL [facility] No Panel Informationon 06-09 Interpretation and review of laboratory results Abnormal [facility] Interpretation and review of laboratory results Abnormal [facility] Interpretation and review of laboratory results Abnormal [facility] Interpretation and review of laboratory results Normal [facility] Interpretation and review of laboratory results Abnormal [facility] FIO2 21 [facility] Interpretation and review of laboratory results Abnormal [facility] No Panel InformationOrdered By: Ana Harrison on 06-09-2022 Interpretation and review of laboratory results Abnormal [facility] Procalcitonin [Mass/Vol]on 0 06-09-2022 Interpretation and review of laboratory results Abnormal [facility] Troponin I.cardiac [Mass/Vol ]on 06-09-2022 Interpretation and review of laboratory results Abnormal [facility] Urinalysis complete panel (U )on 06-09-2022 Bacteria LM.HPF (Urine sed) [#/Area] Many Abnormal Negative /HPF [facility] Bilirubin Ql (U) Negative Negative mg/dL [facility] Calcium oxalate crystals LM.HPF (Urine sed) [#/Area] Moderate Abnormal Negative /HPF [facility] Clarity (U) Extra Turbid Abnormal Clear [facility] Color (U) Yellow Lt. Yellow [facility] Epithelial cells.squamous LM.HPF (Urine sed) [#/Area] 0-2 [facility] Glucose Ql (U) 50 mg/dL Normal (<70) [facility] Hemoglobin Ql (U) 1.0 mg/dL Abnormal Negative [facility] Hyaline casts Auto (Urine sed) [#/Area] 0-2 Abnormal Negative /LPF [facility] Interpretation and review of laboratory results Abnormal [facility] Ketones (U) [Mass/Vol] Negative Negat iris mg/dL [facility] Leukocyte esterase Test strip Ql (U) 500 Abnormal Negative Jimenez/uL [facility] Mucus LM.HPF (Urine sed) [#/Area] Few Negative /LPF [facility] Nitrite Ql (U) Negative Negative [facility] pH (U) 5.5 [pH] 5.0 - 8.0 pH [facility] Protein (U) [Mass/Vol] 200 mg/dL Abnormal Negative [facility] RBC LM.HPF (Urine sed) [#/Area] 6-10 Abnormal [facility] Specific gravity (U) [Rel density] 1.024 1.005 - 1.030 [facility] Urobilinogen (U) [Mass/Vol] 2 mg/dL Abnormal Normal (0-1) [facility] WBC LM.HPF (Urine sed) [#/Area] 26-50 Abnormal [facility] Vital signson 06-09-2022 Oxygen saturation in Venous blood 81.8 % High 60.0 - 80.0 % [facility] XR Chest Single viewon 06-09 [facility] [place] [facility] RADIOLOGY [facility] Radiology Study observation (narrative) [facility] XR Chest Single viewOrdered By: Catarino Sue on 06-09-2022 [facility] Work Phone: aPTT Coag (Bld) [Time]on aPTT Coag (PPP) [Time] 41.0 s High 20.0 - 30.5 s [facility] Interpretation and review of laboratory results Abnormal [facility] Glucose,Bedsideon 04-15-2021 Glucose [Mass/Vol] 162 mg/dL High 70-100 [facility] Comment on above: Result Comment: Test performed by glucose meter. Results may be 10%-15% lowerthan serum/plasma values. (CLIA ID [id number]) Performed By: #### B GLU ####[facility] [employer] [id number] [place] [address] Glucose [Mass/Vol] 153 mg/dL High 70-100 [facility] Comment on above: Result Comment: Test performed by glucose meter. Results may be 10%-15% lowerthan serum/plasma values. (CLIA ID [id number]) Performed By: #### B GLU ####[address] [place] [address] POCT Glucoseon 04-15-2021 Glucose [Mass/Vol] 162 mg/dL High 70 - 100 mg/dL [facility] Interpretation and review of laboratory results Abnormal [facility] Glucose [Mass/Vol] 153 mg/dL High 70 - 100 mg/dL [facility] Interpretation and review of laboratory results Abnormal [facility] Basic Metabolic Panelon 04-02 Anion gap [Moles/Vol] 10 mmol/L Normal 3-13 [facility] Comment on above: Performed By: #### B MP3, HEMDF, PHOS3 ####[address] [place] [address] Calcium [Mass/Vol] 8.8 mg/dL Normal 8.4-10.4 [facility] Comment on above: Performed By: #### B MP3, HEMDF, PHOS3 ####[facility] [employer] [id number] [place] [address] CO2 [Moles/Vol] 25 mmol/L Normal 22-30 [facility] Comment on above: Performed By: #### B MP3, HEMDF, PHOS3 ####[address] [place] [address] Glucose [Mass/Vol] 154 mg/dL High 70-100 [facility] Comment on above: Performed By: #### B MP3, HEMDF, PHOS3 ####[facility] [employer] [id number] [place] [address] Urea nitrogen [Mass/Vol] 24 mg/dL High 9-20 [facility] Comment on above: Performed By: #### B MP3, HEMDF, PHOS3 ####[address] [place] [address] Creatinine [Mass/Vol] 1.32 mg/dL High 0.52-1.25 [facility] Comment on above: Performed By: #### B MP3, HEMDF, PHOS3 ####[facility] [employer] [address] [place] [address] GFR/1.73 sq M.predicted among blacks MDRD (S/P/Bld) [Vol rate/Area] 46.4 mL/min/{1.73_m2} Abnormal >60 [facility] Comment on above: Performed By: #### B MP3, HEMDF, PHOS3 ####[facility] [employer] [address] [place] [address] GFR/1.73 sq M.predicted among non-blacks MDRD (S/P/Bld) [Vol rate/Area] 40.0 mL/min/{1.73_m2} Abnormal >60 [facility] Comment on above: Result Comment: KDIG O guidelines provide the following GFR categories:Stage GFR(ml/min/1.73 m2) TermsG1 >=90 Normal or highG2 60-89 Mildly decreased*G3a 45-59 Mildly to moderately [id number] 30-44 Moderately to severely decreasedG4 15-29 Severely decreasedG5 <15 Kidney failure*Relative to young adult level.In the absence of evidence of kidney damage, neither GFRcategory G1 nor G2 fulfill the criteria for CKD.The CKD-EPI equation is validated in individuals 18 yearsof age and older. Currently the best equation forestimating glomerular filtration rate (GFR) from serumcreatinine in children is the Bedside Ly equation.It is less accurate in patients with extremes of musclemass, restriction of dietary protein, ingestion of creatine,extra-renal metabolism of creatinine, or treatment withmedications that affect renal tubular creatinine secretion. Performed By: #### B MP3, HEMDF, PHOS3 ####[facility] [place] [address] Potassium [Moles/Vol] 3.9 mmol/L Normal 3.5-5.1 [facility] Comment on above: Performed By: #### B MP3, HEMDF, PHOS3 ####[facility] [employer] [id number] [place] [address] Sodium [Moles/Vol] 143 mmol/L Normal 135-145 [facility] Comment on above: Performed By: #### B MP3, HEMDF, PHOS3 ####[facility] [id number] [place] [address] Chloride [Moles/Vol] 107 mmol/L Normal 98-107 [facility] Comment on above: Performed By: #### B MP3, HEMDF, PHOS3 ####[facility] [place] [address] Anion gap [Moles/Vol] 10 mmol/L 3 - 13 mmol/L [facility] Calcium [Mass/Vol] 8.8 mg/dL 8.4 - 10. 4 mg/dL [facility] Chloride [Moles/Vol] 107 mmol/L 98 - 10 7 mmol/L [facility] CO2 [Moles/Vol] 25 mmol/L 22 - 30 mmol/L [facility] Creatinine [Mass/Vol] 1.32 mg/dL High 0.52 - 1.25 mg/dL [facility] EGFR IF NonAfrican [place] 40.0 mL/min Abnormal >60 [facility] GFR/1.73 sq M.predicted among blacks MDRD (S/P/Bld) [Vol rate/Area] 46.4 mL/min/{1.73_m2} Abnormal >60 [facility] Glucose [Mass/Vol] 154 mg/dL High 70 - 100 mg/dL [facility] Interpretation and review of laboratory results Abnormal [facility] Potassium [Moles/Vol] 3.9 mmol/L 3.5 - 5.1 mmol/L [facility] Sodium [Moles/Vol] 143 mmol/L 135 - 145 mmol/L [facility] Urea nitrogen (BldV) [Mass/Vol] 24 mg/dL High 9 - 20 mg/dL [facility] CBC auto differentialon 04-02 Absolute Baso # 0.0 10*3/uL 0.0 - 0.2 10*3/uL [facility] Absolute Neut # 2.3 10*3/uL 1.8 - 7.0 10*3/uL [facility] Basophils/100 WBC (Bld) 0.5 % 0.0 - 2.0 % [facility] Eosinophils (Bld) [#/Vol] 0.3 10*3/uL 0.0 - 0.5 10*3/uL [facility] Eosinophils/100 WBC (Bld) 5.3 % 1.0 - 6.0 % [facility] Granulocytes/100 WBC (Bld) 46.9 % 40.0 - 80.0 % [facility] Hematocrit (Bld) [Volume fraction] 28.5 % Low 35.0 - 47.0 % [facility] Hemoglobin.gastrointes tinal spec 1 Ql (Stl) 9.0 g/dL Low 11.7 - 16.0 g/dL [facility] Interpretation and review of laboratory results Abnormal [facility] Lymphocytes (Bld) [#/Vol] 1.8 10*3/uL 1.0 - 4.3 10*3/uL [facility] Lymphocytes/100 WBC (Bld) 36.4 % 20.0 - 40.0 % [facility] MCH (RBC) [Entitic mass] 27.4 pg 26.0 - 34.0 pg [facility] MCHC (RBC) [Mass/Vol] 31.5 % Low 32.0 - 36.0 % [facility] MCV (RBC) [Entitic vol] 87.0 fL 79.0 - 98.0 fL [facility] Monocytes (Bld) [#/Vol] 0.5 10*3/uL 0.0 - 0.8 10*3/uL [facility] Monocytes/100 WBC (Bld) 10.9 % High 2.0 - 10.0 % [facility] Platelet distribution width (Bld) [Ratio] 18.6 % High 11.5 - 14.5 % [facility] Platelet mean volume (Bld) [Entitic vol] 10.3 fL 7.4 - 10.4 fL [facility] Platelets (Bld) [#/Vol] 225 10*3/uL 140 - 440 10*3/uL [facility] RBC (Bld) [#/Vol] 3.27 10*6/uL Low 3.80 - 5.2 0 10*6/uL [facility] WBC (Bld) [#/Vol] 4.9 10*3/uL 3.6 - 10.7 10*3/uL [facility] Glucose,Bedsideon 04-14-2021 Glucose [Mass/Vol] 189 mg/dL High 70-100 [facility] Comment on above: Result Comment: Test performed by glucose meter. Results may be 10%-15% lowerthan serum/plasma values. (CLIA ID [id number]) Performed By: #### B GLU ####[facility] [place], [place] Glucose [Mass/Vol] 154 mg/dL High 70-100 [facility] Comment on above: Result Comment: Test performed by glucose meter. Results may be 10%-15% lowerthan serum/plasma values. (CLIA ID [id number]) Performed By: #### B GLU ####[facility] [employer] [id number] [place], [place] Glucose [Mass/Vol] 151 mg/dL High 70-100 [facility] Comment on above: Result Comment: Test performed by glucose meter. Results may be 10%-15% lowerthan serum/plasma values. (CLIA ID [id number]) Performed By: #### B GLU ####[address] [place], [place] Glucose [Mass/Vol] 164 mg/dL High 70-100 [facility] Comment on above: Result Comment: Test performed by glucose meter. Results may be 10%-15% lowerthan serum/plasma values. (CLIA ID [id number]) Performed By: #### B GLU ####[facility] [employer] [id number] [place], [place] Hemogram w/ Autodiffon 04-14 Abs Baso Cnt 0.0 10*3/uL Normal 0.0-0.2 [facility] Comment on above: Performed By: #### B MP3, HEMDF, PHOS3 ####[address] [place], [place] Abs Neutrophile Cnt 2.3 10*3/uL Normal 1.8-7.0 [facility] Comment on above: Performed By: #### B MP3, HEMDF, PHOS3 ####[facility] [employer] [id number] [place], [place] Basophils/100 WBC (Bld) 0.5 % Normal 0.0-2.0 [facility] Comment on above: Performed By: #### B MP3, HEMDF, PHOS3 ####[facility] [employer] [id number] [place], [place] Eosinophils (Bld) [#/Vol] 0.3 10*3/uL Normal 0.0-0.5 [facility] Comment on above: Performed By: #### B MP3, HEMDF, PHOS3 ####[address] [place], [place] Eosinophils/100 WBC (Bld) 5.3 % Normal 1.0-6.0 [facility] Comment on above: Performed By: #### B MP3, HEMDF, PHOS3 ####[address] [place], [place] Erythrocyte distribution width (RBC) [Ratio] 18.6 % High 11.5-14.5 [facility] Comment on above: Performed By: #### B MP3, HEMDF, PHOS3 ####[address] Granulocytes/100 WBC (Bld) 46.9 % Normal 40.0-80.0 [facility] Comment on above: Performed By: #### B MP3, HEMDF, PHOS3 ####[address] [place], [place] Hematocrit (Bld) [Volume fraction] 28.5 % Low 35.0-47.0 [facility] Comment on above: Performed By: #### B MP3, HEMDF, PHOS3 ####[address] [place], [place] Hemoglobin (Bld) [Mass/Vol] 9.0 g/dL Low 11.7-16.0 [facility] Comment on above: Performed By: #### B MP3, HEMDF, PHOS3 ####[address] [place], [place] Lymphocytes (Bld) [#/Vol] 1.8 10*3/uL Normal 1.0-4.3 [facility] Comment on above: Performed By: #### B MP3, HEMDF, PHOS3 ####[address] [place], [place] Lymphocytes/100 WBC (Bld) 36.4 % Normal 20.0-40.0 [facility] Comment on above: Performed By: #### B MP3 HEMDF, PHOS3 ####[address] [place], [place] MCH (RBC) [Entitic mass] 27.4 pg Normal 26.0-34.0 [facility] Comment on above: Performed By: #### B MP3, HEMDF, PHOS3 ####[address] [place], [place] MCHC 31.5 % Low 32.0-36.0 [facility] Comment on above: Performed By: #### B MP3, HEMDF, PHOS3 ####[address] [place], [place] MCV (RBC) [Entitic vol] 87.0 fL Normal 79.0-98.0 [facility] Comment on above: Performed By: #### B MP3, HEMDF, PHOS3 ####[address] Monocytes (Bld) [#/Vol] 0.5 10*3/uL Normal 0.0-0.8 [facility] Comment on above: Performed By: #### B MP3, HEMDF, PHOS3 ####[address] Monocytes/100 WBC (Bld) 10.9 % High 2.0-10.0 [facility] Comment on above: Performed By: #### B MP3, HEMDF, PHOS3 ####[address] Platelet mean volume (Bld) [Entitic vol] 10.3 fL Normal 7.4-10.4 [facility] Comment on above: Performed By: #### B MP3, HEMDF, PHOS3 ####[address] [place], [place] Platelets (Bld) [#/Vol] 225 10*3/uL Normal 140-440 [facility] Comment on above: Performed By: #### B MP3, HEMDF, PHOS3 ####[facility] [place], [place] RBC (Bld) [#/Vol] 3.27 10*6/uL Low 3.80-5.20 [facility] Comment on above: Performed By: #### B MP3, HEMDF, PHOS3 ####[facility] [place], [place] WBC (Bld) [#/Vol] 4.9 10*3/uL Normal 3.6-10.7 [facility] Comment on above: Performed By: #### B MP3, HEMDF, PHOS3 ####[address] [place], [place] No Panel Informationon 04-14 Interpretation and review of laboratory results Abnormal [facility] POCT Glucoseon 04-14-2021 Glucose [Mass/Vol] 189 mg/dL High 70 - 100 mg/dL [facility] Interpretation and review of laboratory results Abnormal [facility] Glucose [Mass/Vol] 154 mg/dL High 70 - 100 mg/dL [facility] Interpretation and review of laboratory results Abnormal [facility] Glucose [Mass/Vol] 151 mg/dL High 70 - 100 mg/dL [facility] Phosphoruson 04-14-2021 Phosphate [Mass/Vol] 4.4 mg/dL Normal 2.5-4.5 [facility] Comment on above: Performed By: #### B MP3, HEMDF, PHOS3 ####[address] [place], [place] Phosphate [Mass/Vol] 4.4 mg/dL 2.5 - 4 .5 mg/dL [facility] Basic Metabolic Panelon 04-02 Anion gap [Moles/Vol] 8 mmol/L Normal 3-13 [facility] Comment on above: Performed By: #### P HOS3, BMP3, HEMDF ####[facility] [place], [place] CO2 [Moles/Vol] 27 mmol/L Normal 22-30 [facility] Comment on above: Performed By: #### P HOS3, BMP3, HEMDF ####[facility] [employer] [id number] [place], [place] Creatinine [Mass/Vol] 1.42 mg/dL High 0.52-1.25 [facility] Comment on above: Performed By: #### P HOS3, BMP3, HEMDF ####[facility] [employer] [id number] [place], [place] GFR/1.73 sq M.predicted among blacks MDRD (S/P/Bld) [Vol rate/Area] 42.5 mL/min/{1.73_m2} Abnormal >60 [facility] Comment on above: Performed By: #### P HOS3, BMP3, HEMDF ####[facility] [employer] [address] GFR/1.73 sq M.predicted among non-blacks MDRD (S/P/Bld) [Vol rate/Area] 36.7 mL/min/{1.73_m2} Abnormal >60 [facility] Comment on above: Result Comment: KDIG O guidelines provide the following GFR categories:Stage GFR(ml/min/1.73 m2) TermsG1 >=90 Normal or highG2 60-89 Mildly decreased*G3a 45-59 Mildly to moderately [id number] 30-44 Moderately to severely decreasedG4 15-29 Severely decreasedG5 <15 Kidney failure*Relative to young adult level.In the absence of evidence of kidney damage, neither GFRcategory G1 nor G2 fulfill the criteria for CKD.The CKD-EPI equation is validated in individuals 18 yearsof age and older. Currently the best equation forestimating glomerular filtration rate (GFR) from serumcreatinine in children is the Bedside Ly equation.It is less accurate in patients with extremes of musclemass, restriction of dietary protein, ingestion of creatine,extra-renal metabolism of creatinine, or treatment withmedications that affect renal tubular creatinine secretion. Performed By: #### P HOS3, BMP3, HEMDF ####[facility] [employer] [id number] [place], [place] Urea nitrogen [Mass/Vol] 28 mg/dL High 9-20 [facility] Comment on above: Performed By: #### P HOS3, BMP3, HEMDF ####[address] [place] [address] Chloride [Moles/Vol] 107 mmol/L Normal 98-107 [facility] Comment on above: Performed By: #### P HOS3, BMP3, HEMDF ####[address] [place], [place] Potassium [Moles/Vol] 3.7 mmol/L Normal 3.5-5.1 [facility] Comment on above: Performed By: #### P HOS3, BMP3, HEMDF ####[address] [place], [place] Sodium [Moles/Vol] 142 mmol/L Normal 135-145 [facility] Comment on above: Performed By: #### P HOS3, BMP3, HEMDF ####[address] Calcium [Mass/Vol] 8.7 mg/dL Normal 8.4-10.4 [facility] Comment on above: Performed By: #### P HOS3, BMP3, HEMDF ####[address] [place], [place] Glucose [Mass/Vol] 173 mg/dL High 70-100 [facility] Comment on above: Performed By: #### P HOS3, BMP3, HEMDF ####[address] Anion gap [Moles/Vol] 8 mmol/L 3 - 13 mmol/L [facility] Chloride [Moles/Vol] 107 mmol/L 98 - 10 7 mmol/L [facility] CO2 [Moles/Vol] 27 mmol/L 22 - 30 mmol/L [facility] Creatinine [Mass/Vol] 1.42 mg/dL High 0.52 - 1.25 mg/dL [facility] EGFR IF NonAfrican [place] 36.7 mL/min Abnormal >60 [facility] GFR/1.73 sq M.predicted among blacks MDRD (S/P/Bld) [Vol rate/Area] 42.5 mL/min/{1.73_m2} Abnormal >60 [facility] Interpretation and review of laboratory results Abnormal [facility] Potassium [Moles/Vol] 3.7 mmol/L 3.5 - 5.1 mmol/L [facility] Sodium [Moles/Vol] 142 mmol/L 135 - 145 mmol/L [facility] Urea nitrogen (BldV) [Mass/Vol] 28 mg/dL High 9 - 20 mg/dL [facility] CBC auto differentialon 04-02 Absolute Baso # 0.0 10*3/uL 0.0 - 0.2 10*3/uL [facility] Absolute Neut # 2.5 10*3/uL 1.8 - 7.0 10*3/uL [facility] Basophils/100 WBC (Bld) 0.5 % 0.0 - 2.0 % [facility] Eosinophils (Bld) [#/Vol] 0.2 10*3/uL 0.0 - 0.5 10*3/uL [facility] Eosinophils/100 WBC (Bld) 4.4 % 1.0 - 6.0 % [facility] Granulocytes/100 WBC (Bld) 55.8 % 40.0 - 80.0 % [facility] Hematocrit (Bld) [Volume fraction] 26.9 % Low 35.0 - 47.0 % [facility] Hemoglobin.gastrointes tinal spec 1 Ql (Stl) 8.6 g/dL Low 11.7 - 16.0 g/dL [facility] Interpretation and review of laboratory results Abnormal [facility] Lymphocytes (Bld) [#/Vol] 1.2 10*3/uL 1.0 - 4.3 10*3/uL [facility] Lymphocytes/100 WBC (Bld) 28.1 % 20.0 - 40.0 % [facility] MCH (RBC) [Entitic mass] 27.7 pg 26.0 - 34.0 pg [facility] MCHC (RBC) [Mass/Vol] 31.8 % Low 32.0 - 36.0 % [facility] MCV (RBC) [Entitic vol] 87.3 fL 79.0 - 98.0 fL [facility] Monocytes (Bld) [#/Vol] 0.5 10*3/uL 0.0 - 0.8 10*3/uL [facility] Monocytes/100 WBC (Bld) 11.2 % High 2.0 - 10.0 % [facility] Platelet distribution width (Bld) [Ratio] 18.6 % High 11.5 - 14.5 % [facility] Platelet mean volume (Bld) [Entitic vol] 10.1 fL 7.4 - 10.4 fL [facility] Platelets (Bld) [#/Vol] 195 10*3/uL 140 - 440 10*3/uL [facility] RBC (Bld) [#/Vol] 3.09 10*6/uL Low 3.80 - 5.2 0 10*6/uL [facility] WBC (Bld) [#/Vol] 4.4 10*3/uL 3.6 - 10.7 10*3/uL [facility] CULTURE URINEon 04-13-2021 CULTURE URINE Normal [facility] Comment on above: Performed By: #### C /UR ####[address] [address] [id number] Culture, Urineon 04-13-2021 Bacteria identified Cx Nom (U) Escherichia coli Abnormal [facility] Bacteria identified Cx Nom (U) [facility] Bacteria identified Cx Nom (U) Proteus mirabilis Abnormal [facility] Bacteria identified Cx Nom (U) >100,000 CFU/ml [facility] Interpretation and review of laboratory results Abnormal [facility] Glucose,Bedsideon 04-13-2021 Glucose [Mass/Vol] 132 mg/dL High 70-100 [facility] Comment on above: Result Comment: Test performed by glucose meter. Results may be 10%-15% lowerthan serum/plasma values. (CLIA ID [id number]) Performed By: #### B GLU ####[address] [place] [address] Glucose [Mass/Vol] 149 mg/dL High 70-100 [facility] Comment on above: Result Comment: Test performed by glucose meter. Results may be 10%-15% lowerthan serum/plasma values. (CLIA ID [id number]) Performed By: #### B GLU ####[address] [place] [address] Glucose [Mass/Vol] 152 mg/dL High 70-100 [facility] Comment on above: Result Comment: Test performed by glucose meter. Results may be 10%-15% lowerthan serum/plasma values. (CLIA ID [id number]) Performed By: #### B GLU ####[address] [address] Glucose [Mass/Vol] 154 mg/dL High 70-100 [facility] Comment on above: Result Comment: Test performed by glucose meter. Results may be 10%-15% lowerthan serum/plasma values. (CLIA ID [id number]) Performed By: #### B GLU ####[address] Hemogram w/ Autodiffon 04-13 Abs Baso Cnt 0.0 10*3/uL Normal 0.0-0.2 [facility] Comment on above: Performed By: #### P HOS3, BMP3, HEMDF ####[address] Abs Neutrophile Cnt 2.5 10*3/uL Normal 1.8-7.0 [facility] Comment on above: Performed By: #### P HOS3, BMP3, HEMDF ####[address] [address] Basophils/100 WBC (Bld) 0.5 % Normal 0.0-2.0 [facility] Comment on above: Performed By: #### P HOS3, BMP3, HEMDF ####[address] Eosinophils (Bld) [#/Vol] 0.2 10*3/uL Normal 0.0-0.5 [facility] Comment on above: Performed By: #### P HOS3, BMP3, HEMDF ####[address] [address] Eosinophils/100 WBC (Bld) 4.4 % Normal 1.0-6.0 [facility] Comment on above: Performed By: #### P HOS3, BMP3, HEMDF ####[address] Erythrocyte distribution width (RBC) [Ratio] 18.6 % High 11.5-14.5 [facility] Comment on above: Performed By: #### P HOS3, BMP3, HEMDF ####[address] [place], [place] Granulocytes/100 WBC (Bld) 55.8 % Normal 40.0-80.0 [facility] Comment on above: Performed By: #### P HOS3, BMP3, HEMDF ####[address] Hematocrit (Bld) [Volume fraction] 26.9 % Low 35.0-47.0 [facility] Comment on above: Performed By: #### P HOS3, BMP3, HEMDF ####[address] Hemoglobin (Bld) [Mass/Vol] 8.6 g/dL Low 11.7-16.0 [facility] Comment on above: Performed By: #### P HOS3, BMP3, HEMDF ####[address] Lymphocytes (Bld) [#/Vol] 1.2 10*3/uL Normal 1.0-4.3 [facility] Comment on above: Performed By: #### P HOS3, BMP3, HEMDF ####[address] Lymphocytes/100 WBC (Bld) 28.1 % Normal 20.0-40.0 [facility] Comment on above: Performed By: #### P HOS3, BMP3, HEMDF ####[address] MCH (RBC) [Entitic mass] 27.7 pg Normal 26.0-34.0 [facility] Comment on above: Performed By: #### P HOS3, BMP3, HEMDF ####[address] MCHC 31.8 % Low 32.0-36.0 [facility] Comment on above: Performed By: #### P HOS3, BMP3, HEMDF ####[address] MCV (RBC) [Entitic vol] 87.3 fL Normal 79.0-98.0 [facility] Comment on above: Performed By: #### P HOS3, BMP3, HEMDF ####[address] Monocytes (Bld) [#/Vol] 0.5 10*3/uL Normal 0.0-0.8 [facility] Comment on above: Performed By: #### P HOS3, BMP3, HEMDF ####[address] Monocytes/100 WBC (Bld) 11.2 % High 2.0-10.0 [facility] Comment on above: Performed By: #### P HOS3, BMP3, HEMDF ####[address] Platelet mean volume (Bld) [Entitic vol] 10.1 fL Normal 7.4-10.4 [facility] Comment on above: Performed By: #### P HOS3, BMP3, HEMDF ####[address] Platelets (Bld) [#/Vol] 195 10*3/uL Normal 140-440 [facility] Comment on above: Performed By: #### P HOS3, BMP3, HEMDF ####[address] RBC (Bld) [#/Vol] 3.09 10*6/uL Low 3.80-5.20 [facility] Comment on above: Performed By: #### P HOS3, BMP3, HEMDF ####[address] WBC (Bld) [#/Vol] 4.4 10*3/uL Normal 3.6-10.7 [facility] Comment on above: Performed By: #### P HOS3, BMP3, HEMDF ####[address] [place] [address] No Panel Informationon 04-13 [facility] POCT Glucoseon 04-13-2021 Glucose [Mass/Vol] 132 mg/dL High 70 - 100 mg/dL [facility] Interpretation and review of laboratory results Abnormal [facility] Glucose [Mass/Vol] 149 mg/dL High 70 - 100 mg/dL [facility] Interpretation and review of laboratory results Abnormal [facility] Glucose [Mass/Vol] 152 mg/dL High 70 - 100 mg/dL [facility] Interpretation and review of laboratory results Abnormal [facility] Glucose [Mass/Vol] 154 mg/dL High 70 - 100 mg/dL [facility] Interpretation and review of laboratory results Abnormal [facility] Phosphoruson 04-13-2021 Phosphate [Mass/Vol] 4.4 mg/dL Normal 2.5-4.5 [facility] Comment on above: Performed By: #### P HOS3, BMP3, HEMDF ####[address] [place], [place] Basic Metabolic Panelon 04-02 Anion gap [Moles/Vol] 7 mmol/L Normal 3-13 [facility] Comment on above: Performed By: #### B MP3, HEMDF, PHOS3 ####[address] [place] [address] Calcium [Mass/Vol] 8.6 mg/dL Normal 8.4-10.4 [facility] Comment on above: Performed By: #### B MP3, HEMDF, PHOS3 ####[address] [place], [place] CO2 [Moles/Vol] 29 mmol/L Normal 22-30 [facility] Comment on above: Performed By: #### B MP3, HEMDF, PHOS3 ####[facility] [employer] [id number] [place] [address] Glucose [Mass/Vol] 204 mg/dL High 70-100 [facility] Comment on above: Performed By: #### B MP3, HEMDF, PHOS3 ####[facility] [employer] [id number] [place] [address] Urea nitrogen [Mass/Vol] 31 mg/dL High 9-20 [facility] Comment on above: Performed By: #### B MP3, HEMDF, PHOS3 ####[facility] [employer] [id number] [place] [address] Creatinine [Mass/Vol] 1.46 mg/dL High 0.52-1.25 [facility] Comment on above: Performed By: #### B MP3, HEMDF, PHOS3 ####[facility] [employer] [id number] [place] [address] GFR/1.73 sq M.predicted among blacks MDRD (S/P/Bld) [Vol rate/Area] 41.1 mL/min/{1.73_m2} Abnormal >60 [facility] Comment on above: Performed By: #### B MP3, HEMDF, PHOS3 ####[facility] [employer] [address] [place] [address] GFR/1.73 sq M.predicted among non-blacks MDRD (S/P/Bld) [Vol rate/Area] 35.4 mL/min/{1.73_m2} Abnormal >60 [facility] Comment on above: Result Comment: KDIG O guidelines provide the following GFR categories:Stage GFR(ml/min/1.73 m2) TermsG1 >=90 Normal or highG2 60-89 Mildly decreased*G3a 45-59 Mildly to moderately [id number] 30-44 Moderately to severely decreasedG4 15-29 Severely decreasedG5 <15 Kidney failure*Relative to young adult level.In the absence of evidence of kidney damage, neither GFRcategory G1 nor G2 fulfill the criteria for CKD.The CKD-EPI equation is validated in individuals 18 yearsof age and older. Currently the best equation forestimating glomerular filtration rate (GFR) from serumcreatinine in children is the Bedside Ly equation.It is less accurate in patients with extremes of musclemass, restriction of dietary protein, ingestion of creatine,extra-renal metabolism of creatinine, or treatment withmedications that affect renal tubular creatinine secretion. Performed By: #### B ATILIO CASTILLO, PHOS3 ####[facility] [place] [address] Chloride [Moles/Vol] 106 mmol/L Normal 98-107 [facility] Comment on above: Performed By: #### B JONATHAN, HEMLJ, PHOS3 ####[address] [place] [address] Potassium [Moles/Vol] 3.8 mmol/L Normal 3.5-5.1 [facility] Comment on above: Performed By: #### B ALTON3, HEMLJ, PHOS3 ####[address] [place] [address] Sodium [Moles/Vol] 141 mmol/L Normal 135-145 [facility] Comment on above: Performed By: #### B ALTON3, HEMLJ, PHOS3 ####[address] [place] [address] Anion gap [Moles/Vol] 7 mmol/L 3 - 13 mmol/L [facility] Calcium [Mass/Vol] 8.6 mg/dL 8.4 - 10. 4 mg/dL [facility] Chloride [Moles/Vol] 106 mmol/L 98 - 10 7 mmol/L [facility] CO2 [Moles/Vol] 29 mmol/L 22 - 30 mmol/L [facility] Creatinine [Mass/Vol] 1.46 mg/dL High 0.52 - 1.25 mg/dL [facility] EGFR IF NonAfrican [place] 35.4 mL/min Abnormal >60 [facility] GFR/1.73 sq M.predicted among blacks MDRD (S/P/Bld) [Vol rate/Area] 41.1 mL/min/{1.73_m2} Abnormal >60 [facility] Glucose [Mass/Vol] 204 mg/dL High 70 - 100 mg/dL [facility] Potassium [Moles/Vol] 3.8 mmol/L 3.5 - 5.1 mmol/L [facility] Sodium [Moles/Vol] 141 mmol/L 135 - 145 mmol/L [facility] Urea nitrogen (BldV) [Mass/Vol] 31 mg/dL High 9 - 20 mg/dL [facility] CBC auto differentialon 04-02 Absolute Baso # 0.0 10*3/uL 0.0 - 0.2 10*3/uL [facility] Absolute Neut # 2.4 10*3/uL 1.8 - 7.0 10*3/uL [facility] Basophils/100 WBC (Bld) 0.8 % 0.0 - 2.0 % [facility] Eosinophils (Bld) [#/Vol] 0.2 10*3/uL 0.0 - 0.5 10*3/uL [facility] Eosinophils/100 WBC (Bld) 5.2 % 1.0 - 6.0 % [facility] Granulocytes/100 WBC (Bld) 56.3 % 40.0 - 80.0 % [facility] Hematocrit (Bld) [Volume fraction] 27.2 % Low 35.0 - 47.0 % [facility] Hemoglobin.gastrointes tinal spec 1 Ql (Stl) 8.5 g/dL Low 11.7 - 16.0 g/dL [facility] Interpretation and review of laboratory results Abnormal [facility] Lymphocytes (Bld) [#/Vol] 1.1 10*3/uL 1.0 - 4.3 10*3/uL [facility] Lymphocytes/100 WBC (Bld) 25.8 % 20.0 - 40.0 % [facility] MCH (RBC) [Entitic mass] 27.6 pg 26.0 - 34.0 pg [facility] MCHC (RBC) [Mass/Vol] 31.4 % Low 32.0 - 36.0 % [facility] MCV (RBC) [Entitic vol] 87.7 fL 79.0 - 98.0 fL [facility] Monocytes (Bld) [#/Vol] 0.5 10*3/uL 0.0 - 0.8 10*3/uL [facility] Monocytes/100 WBC (Bld) 11.9 % High 2.0 - 10.0 % [facility] Platelet distribution width (Bld) [Ratio] 18.8 % High 11.5 - 14.5 % [facility] Platelet mean volume (Bld) [Entitic vol] 10.0 fL 7.4 - 10.4 fL [facility] Platelets (Bld) [#/Vol] 209 10*3/uL 140 - 440 10*3/uL [facility] RBC (Bld) [#/Vol] 3.10 10*6/uL Low 3.80 - 5.2 0 10*6/uL [facility] WBC (Bld) [#/Vol] 4.3 10*3/uL 3.6 - 10.7 10*3/uL [facility] COVID-19on 04-12-2021 SARS-CoV-2 (COVID-19) RNA EZIO+probe Ql (Unsp spec) Not detected Not Detected [facility] Glucose,Bedsideon 04-12-2021 Glucose [Mass/Vol] 155 mg/dL [address] Comment on above: Result Comment: Test performed by glucose meter. Results may be 10%-15% lowerthan serum/plasma values. (CLIA ID [id number]) Performed By: #### B GLU ####[employer] [place] [address] Glucose [Mass/Vol] 149 mg/dL [address] Comment on above: Result Comment: Test performed by glucose meter. Results may be 10%-15% lowerthan serum/plasma values. (CLIA ID [id number]) Performed By: #### B GLU ####[employer] [place] [address] Glucose [Mass/Vol] 181 mg/dL High [address] [place] [address] Comment on above: Result Comment: Test performed by glucose meter. Results may be 10%-15% lowerthan serum/plasma values. (CLIA ID [id number]) Performed By: #### B GLU ####[employer] [id number] [place] [address] Glucose [Mass/Vol] 204 mg/dL [address] Comment on above: Result Comment: Test performed by glucose meter. Results may be 10%-15% lowerthan serum/plasma values. (CLIA ID [id number]) Performed By: #### B GLU ####[address] [place], [place] Hemogram w/ Autodiffon 04-12 Abs Baso Cnt 0.0 10*3/uL Normal 0.0-0.2 [facility] Comment on above: Performed By: #### B MP3, HEMDF, PHOS3 ####[address] [place], [place] Abs Neutrophile Cnt 2.4 10*3/uL Normal 1.8-7.0 [facility] Comment on above: Performed By: #### B MP3, HEMDF, PHOS3 ####[address] [place], [place] Basophils/100 WBC (Bld) 0.8 % Normal 0.0-2.0 [facility] Comment on above: Performed By: #### B MP3, HEMDF, PHOS3 ####[address] [place], [place] Eosinophils (Bld) [#/Vol] 0.2 10*3/uL Normal 0.0-0.5 [facility] Comment on above: Performed By: #### B MP3, HEMDF, PHOS3 ####[facility] [employer] [id number] [place], [place] Eosinophils/100 WBC (Bld) 5.2 % Normal 1.0-6.0 [facility] Comment on above: Performed By: #### B MP3, HEMDF, PHOS3 ####[address] Erythrocyte distribution width (RBC) [Ratio] 18.8 % High 11.5-14.5 [facility] Comment on above: Performed By: #### B MP3, HEMDF, PHOS3 ####[address] Granulocytes/100 WBC (Bld) 56.3 % Normal 40.0-80.0 [facility] Comment on above: Performed By: #### B MP3, HEMDF, PHOS3 ####[address] [place], [place] Hematocrit (Bld) [Volume fraction] 27.2 % Low 35.0-47.0 [facility] Comment on above: Performed By: #### B MP3, HEMDF, PHOS3 ####[address] [place] Hemoglobin (Bld) [Mass/Vol] 8.5 g/dL Low 11.7-16.0 [facility] Comment on above: Performed By: #### B MP3, HEMDF, PHOS3 ####[address] [place] Lymphocytes (Bld) [#/Vol] 1.1 10*3/uL Normal 1.0-4.3 [facility] Comment on above: Performed By: #### B MP3, HEMDF, PHOS3 ####[address] Lymphocytes/100 WBC (Bld) 25.8 % Normal 20.0-40.0 [facility] Comment on above: Performed By: #### B MP3, HEMDF, PHOS3 ####[address] MCH (RBC) [Entitic mass] 27.6 pg Normal 26.0-34.0 [facility] Comment on above: Performed By: #### B MP3, HEMDF, PHOS3 ####[address] [place] MCHC 31.4 % Low 32.0-36.0 [facility] Comment on above: Performed By: #### B MP3, HEMDF, PHOS3 ####[address] MCV (RBC) [Entitic vol] 87.7 fL Normal 79.0-98.0 [facility] Comment on above: Performed By: #### B MP3, HEMDF, PHOS3 ####[address] [place], [place] Monocytes (Bld) [#/Vol] 0.5 10*3/uL Normal 0.0-0.8 [facility] Comment on above: Performed By: #### B MP3, HEMDF, PHOS3 ####[facility] [employer] [id number] [place], [place] Monocytes/100 WBC (Bld) 11.9 % High 2.0-10.0 [facility] Comment on above: Performed By: #### B MP3, HEMDF, PHOS3 ####[facility] [employer] [id number] [place], [place] Platelet mean volume (Bld) [Entitic vol] 10.0 fL Normal 7.4-10.4 [facility] Comment on above: Performed By: #### B MP3, HEMDF, PHOS3 ####[address] [place] Platelets (Bld) [#/Vol] 209 10*3/uL Normal 140-440 [facility] Comment on above: Performed By: #### B MP3, HEMDF, PHOS3 ####[address] [place] RBC (Bld) [#/Vol] 3.10 10*6/uL Low 3.80-5.20 [facility] Comment on above: Performed By: #### B MP3, HEMDF, PHOS3 ####[address] [place] WBC (Bld) [#/Vol] 4.3 10*3/uL Normal 3.6-10.7 [facility] Comment on above: Performed By: #### B MP3, HEMDF, PHOS3 ####[facility] [employer] [id number] [place], [place] No Panel Informationon 04-12 Interpretation and review of laboratory results Abnormal [facility] POCT GlucoseOrdered By: Cov Integ on 04-12-2021 Glucose [Mass/Vol] 155 mg/dL High 70 - 100 mg/dL [facility] Interpretation and review of laboratory results Abnormal [facility] POCT Glucoseon 04-12-2021 [facility] Glucose [Mass/Vol] 149 mg/dL High 70 - 100 mg/dL [facility] Interpretation and review of laboratory results Abnormal [facility] Glucose [Mass/Vol] 181 mg/dL High 70 - 100 mg/dL [facility] Interpretation and review of laboratory results Abnormal [facility] Glucose [Mass/Vol] 204 mg/dL High 70 - 100 mg/dL [facility] Interpretation and review of laboratory results Abnormal [facility] Phosphoruson 04-12-2021 Phosphate [Mass/Vol] 4.7 mg/dL High 2.5-4.5 [facility] Comment on above: Performed By: #### B MP3, HEMDF, PHOS3 ####[facility] [place] [id number] Phosphate [Mass/Vol] 4.7 mg/dL High 2.5 - 4 .5 mg/dL [facility] [id number] 04-12-2021 SARS-CoV-2 (COVID-19) RNA EZIO+probe Ql (Unsp spec) Normal [facility] [facility] Comment on above: Performed By: #### C OVID ####[facility] [employer]OTEL Top-Level [address] [place] [address] Special treatments and proce dureson 04-12-2021 [facility] Work Phone: Special treatments and proce duresOrdered By: Leonel Vang on 04-12-2021 [facility] Work Phone: XA Special Angiography Proce dureon 04-12-2021 XA Special Angiography Procedure Normal [facility] Add On Lab Teston 04-11-2021 Add On Accepted [facility] Add on test from HISon 04-11 Add on test from HIS Accepted Normal [facility] Comment on above: Result Comment: Spec imen available & acceptable for analysis. Performed By: #### A DDON ####[facility] [place] [address] Basic Metabolic Panelon 04-02 Anion gap [Moles/Vol] 7 mmol/L Normal 3-13 [facility] Comment on above: Performed By: #### B HB, HEMDF, BMP3, PHOS3 ####[facility] [employer] [id number] [place], [place] Calcium [Mass/Vol] 8.7 mg/dL Normal 8.4-10.4 [facility] Comment on above: Performed By: #### B HB, HEMDF, BMP3, PHOS3 ####[facility] [employer] [address] [place], [place] CO2 [Moles/Vol] 29 mmol/L Normal 22-30 [facility] Comment on above: Performed By: #### B HB, HEMDF, BMP3, PHOS3 ####[facility] [employer] [id number] [place], [place] Glucose [Mass/Vol] 207 mg/dL High 70-100 [facility] Comment on above: Performed By: #### B HB, HEMDF, BMP3, PHOS3 ####[facility] [employer] [address] [place], [place] Urea nitrogen [Mass/Vol] 33 mg/dL High 9-20 [facility] Comment on above: Performed By: #### B HB, HEMDF, BMP3, PHOS3 ####[facility] [employer] [address] [place], [place] Creatinine [Mass/Vol] 1.61 mg/dL High 0.52-1.25 [facility] Comment on above: Performed By: #### B HB, HEMDF, BMP3, PHOS3 ####[facility] [employer] [id number] [place], [place] GFR/1.73 sq M.predicted among blacks MDRD (S/P/Bld) [Vol rate/Area] 36.5 mL/min/{1.73_m2} Abnormal >60 [facility] Comment on above: Performed By: #### B HB, HEMDF, BMP3, PHOS3 ####[facility] [employer] [id number] [place], [place] GFR/1.73 sq M.predicted among non-blacks MDRD (S/P/Bld) [Vol rate/Area] 31.5 mL/min/{1.73_m2} Abnormal >60 [facility] Comment on above: Result Comment: KDIG O guidelines provide the following GFR categories:Stage GFR(ml/min/1.73 m2) TermsG1 >=90 Normal or highG2 60-89 Mildly decreased*G3a 45-59 Mildly to moderately [id number] 30-44 Moderately to severely decreasedG4 15-29 Severely decreasedG5 <15 Kidney failure*Relative to young adult level.In the absence of evidence of kidney damage, neither GFRcategory G1 nor G2 fulfill the criteria for CKD.The CKD-EPI equation is validated in individuals 18 yearsof age and older. Currently the best equation forestimating glomerular filtration rate (GFR) from serumcreatinine in children is the Bedside Ly equation.It is less accurate in patients with extremes of musclemass, restriction of dietary protein, ingestion of creatine,extra-renal metabolism of creatinine, or treatment withmedications that affect renal tubular creatinine secretion. Performed By: #### B HB, HEMDF, BMP3, PHOS3 ####[address] [place], [place] Chloride [Moles/Vol] 104 mmol/L Normal 98-107 [facility] Comment on above: Performed By: #### B HB, HEMDF, BMP3, PHOS3 ####[address] Potassium [Moles/Vol] 3.5 mmol/L Normal 3.5-5.1 [facility] Comment on above: Performed By: #### B HB, HEMDF, BMP3, PHOS3 ####[address] [place], [place] Sodium [Moles/Vol] 140 mmol/L Normal 135-145 [facility] Comment on above: Performed By: #### B HB, HEMDF, BMP3, PHOS3 ####[address] Anion gap [Moles/Vol] 7 mmol/L 3 - 13 mmol/L [facility] Calcium [Mass/Vol] 8.7 mg/dL 8.4 - 10. 4 mg/dL [facility] Chloride [Moles/Vol] 104 mmol/L 98 - 10 7 mmol/L [facility] CO2 [Moles/Vol] 29 mmol/L 22 - 30 mmol/L [facility] Creatinine [Mass/Vol] 1.61 mg/dL High 0.52 - 1.25 mg/dL [facility] EGFR IF NonAfrican [place] 31.5 mL/min Abnormal >60 [facility] GFR/1.73 sq M.predicted among blacks MDRD (S/P/Bld) [Vol rate/Area] 36.5 mL/min/{1.73_m2} Abnormal >60 [facility] Glucose [Mass/Vol] 207 mg/dL High 70 - 100 mg/dL [facility] Interpretation and review of laboratory results Abnormal [facility] Potassium [Moles/Vol] 3.5 mmol/L 3.5 - 5.1 mmol/L [facility] Sodium [Moles/Vol] 140 mmol/L 135 - 145 mmol/L [facility] Urea nitrogen (BldV) [Mass/Vol] 33 mg/dL High 9 - 20 mg/dL [facility] Beta Hydroxybutyrateon 04-11 Beta Hydroxybutyrate 1.58 mg/dL Normal 0.20-2.81 [facility] Comment on above: Performed By: #### B HB, HEMDF, BMP3, PHOS3 ####[address] [place] [address] Beta-Hydroxybutyrateon 04-11 Beta-Hydroxybutyrate 1.58 mg/dL 0.20 - 2.81 mg/dL [facility] CBC auto differentialon 04-02 Absolute Baso # 0.0 10*3/uL 0.0 - 0.2 10*3/uL [facility] Absolute Neut # 2.5 10*3/uL 1.8 - 7.0 10*3/uL [facility] Basophils/100 WBC (Bld) 0.8 % 0.0 - 2.0 % [facility] Eosinophils (Bld) [#/Vol] 0.3 10*3/uL 0.0 - 0.5 10*3/uL [facility] Eosinophils/100 WBC (Bld) 6.0 % 1.0 - 6.0 % [facility] Granulocytes/100 WBC (Bld) 53.6 % 40.0 - 80.0 % [facility] Hematocrit (Bld) [Volume fraction] 26.2 % Low 35.0 - 47.0 % [facility] Hemoglobin.gastrointes tinal spec 1 Ql (Stl) 8.3 g/dL Low 11.7 - 16.0 g/dL [facility] Interpretation and review of laboratory results Abnormal [facility] Lymphocytes (Bld) [#/Vol] 1.3 10*3/uL 1.0 - 4.3 10*3/uL [facility] Lymphocytes/100 WBC (Bld) 29.1 % 20.0 - 40.0 % [facility] MCH (RBC) [Entitic mass] 27.7 pg 26.0 - 34.0 pg [facility] MCHC (RBC) [Mass/Vol] 31.7 % Low 32.0 - 36.0 % [facility] MCV (RBC) [Entitic vol] 87.5 fL 79.0 - 98.0 fL [facility] Monocytes (Bld) [#/Vol] 0.5 10*3/uL 0.0 - 0.8 10*3/uL [facility] Monocytes/100 WBC (Bld) 10.5 % High 2.0 - 10.0 % [facility] Platelet distribution width (Bld) [Ratio] 19.0 % High 11.5 - 14.5 % [facility] Platelet mean volume (Bld) [Entitic vol] 10.2 fL 7.4 - 10.4 fL [facility] Platelets (Bld) [#/Vol] 200 10*3/uL 140 - 440 10*3/uL [facility] RBC (Bld) [#/Vol] 2.99 10*6/uL Low 3.80 - 5.2 0 10*6/uL [facility] WBC (Bld) [#/Vol] 4.6 10*3/uL 3.6 - 10.7 10*3/uL [facility] Glucose,Bedsideon 04-11-2021 Glucose [Mass/Vol] 159 mg/dL High 70-100 [facility] Comment on above: Result Comment: Test performed by glucose meter. Results may be 10%-15% lowerthan serum/plasma values. (CLIA ID [id number]) Performed By: #### B GLU ####[address] [place] [address] Glucose [Mass/Vol] 143 mg/dL High 70-100 [facility] Comment on above: Result Comment: Test performed by glucose meter. Results may be 10%-15% lowerthan serum/plasma values. (CLIA ID [id number]) Performed By: #### B GLU ####[facility] [employer] [id number] [place], [place] Glucose [Mass/Vol] 171 mg/dL High 70-100 [facility] Comment on above: Result Comment: Test performed by glucose meter. Results may be 10%-15% lowerthan serum/plasma values. (CLIA ID [id number]) Performed By: #### B GLU ####[facility] [employer] [id number] [place], [place] Glucose [Mass/Vol] 190 mg/dL High 70-100 [facility] Comment on above: Result Comment: Test performed by glucose meter. Results may be 10%-15% lowerthan serum/plasma values. (CLIA ID [id number]) Performed By: #### B GLU ####[facility] [employer] [id number] [place], [place] Hemogram w/ Autodiffon 04-11 Abs Baso Cnt 0.0 10*3/uL Normal 0.0-0.2 [facility] Comment on above: Performed By: #### B HB, HEMDF, BMP3, PHOS3 ####[address] [place], [place] Abs Neutrophile Cnt 2.5 10*3/uL Normal 1.8-7.0 [facility] Comment on above: Performed By: #### B HB, HEMDF, BMP3, PHOS3 ####[facility] [employer] [id number] [place], [place] Basophils/100 WBC (Bld) 0.8 % Normal 0.0-2.0 [facility] Comment on above: Performed By: #### B HB, HEMDF, BMP3, PHOS3 ####[address] [place], [place] Eosinophils (Bld) [#/Vol] 0.3 10*3/uL Normal 0.0-0.5 [facility] Comment on above: Performed By: #### B HB, HEMDF, BMP3, PHOS3 ####[address] [place], [place] Eosinophils/100 WBC (Bld) 6.0 % Normal 1.0-6.0 [facility] Comment on above: Performed By: #### B HB, HEMDF, BMP3, PHOS3 ####[address] Erythrocyte distribution width (RBC) [Ratio] 19.0 % High 11.5-14.5 [facility] Comment on above: Performed By: #### B HB, HEMDF, BMP3, PHOS3 ####[address] Granulocytes/100 WBC (Bld) 53.6 % Normal 40.0-80.0 [facility] Comment on above: Performed By: #### B HB, HEMDF, BMP3, PHOS3 ####[address] Hematocrit (Bld) [Volume fraction] 26.2 % Low 35.0-47.0 [facility] Comment on above: Performed By: #### B HB, HEMDF, BMP3, PHOS3 ####[address] Hemoglobin (Bld) [Mass/Vol] 8.3 g/dL Low 11.7-16.0 [facility] Comment on above: Performed By: #### B HB, HEMDF, BMP3, PHOS3 ####[address] Lymphocytes (Bld) [#/Vol] 1.3 10*3/uL Normal 1.0-4.3 [facility] Comment on above: Performed By: #### B HB, HEMDF, BMP3, PHOS3 ####[address] Lymphocytes/100 WBC (Bld) 29.1 % Normal 20.0-40.0 [facility] Comment on above: Performed By: #### B HB, HEMDF, BMP3, PHOS3 ####[address] MCH (RBC) [Entitic mass] 27.7 pg Normal 26.0-34.0 [facility] Comment on above: Performed By: #### B HB, HEMDF, BMP3, PHOS3 ####[address] MCHC 31.7 % Low 32.0-36.0 [facility] Comment on above: Performed By: #### B HB, HEMDF, BMP3, PHOS3 ####[address] [place], [place] MCV (RBC) [Entitic vol] 87.5 fL Normal 79.0-98.0 [facility] Comment on above: Performed By: #### B HB, HEMDF, BMP3, PHOS3 ####[address] Monocytes (Bld) [#/Vol] 0.5 10*3/uL Normal 0.0-0.8 [facility] Comment on above: Performed By: #### B HB, HEMDF, BMP3, PHOS3 ####[address] Monocytes/100 WBC (Bld) 10.5 % High 2.0-10.0 [facility] Comment on above: Performed By: #### B HB, HEMDF, BMP3, PHOS3 ####[address] Platelet mean volume (Bld) [Entitic vol] 10.2 fL Normal 7.4-10.4 [facility] Comment on above: Performed By: #### B HB, HEMDF, BMP3, PHOS3 ####[address] Platelets (Bld) [#/Vol] 200 10*3/uL Normal 140-440 [facility] Comment on above: Performed By: #### B HB, HEMDF, BMP3, PHOS3 ####[address] [place], [place] RBC (Bld) [#/Vol] 2.99 10*6/uL Low 3.80-5.20 [facility] Comment on above: Performed By: #### B HB, HEMDF, BMP3, PHOS3 ####[address] [place], [place] WBC (Bld) [#/Vol] 4.6 10*3/uL Normal 3.6-10.7 [facility] Comment on above: Performed By: #### B HB, HEMDF, BMP3, PHOS3 ####[address] No Panel Informationon 04-11 [facility] POCT Glucoseon 04-11-2021 Glucose [Mass/Vol] 159 mg/dL High 70 - 100 mg/dL [facility] Interpretation and review of laboratory results Abnormal [facility] Glucose [Mass/Vol] 143 mg/dL High 70 - 100 mg/dL [facility] Interpretation and review of laboratory results Abnormal [facility] Glucose [Mass/Vol] 171 mg/dL High 70 - 100 mg/dL [facility] Interpretation and review of laboratory results Abnormal [facility] Glucose [Mass/Vol] 190 mg/dL High 70 - 100 mg/dL [facility] Work Phone: Interpretation and review of laboratory results Abnormal [facility] Work Phone: [facility] Work Phone: Phosphoruson 04-11-2021 Phosphate [Mass/Vol] 4.3 mg/dL Normal 2.5-4.5 [facility] Comment on above: Performed By: #### B HB, HEMDF, BMP3, PHOS3 ####[address] Phosphate [Mass/Vol] 4.3 mg/dL 2.5 - 4 .5 mg/dL [facility] Special treatments and proce dureson 04-11-2021 Radiology Study observation (narrative) [facility] Work Phone: Urea Nitrogen, Ur 24Hron Urea Nitrogen, Ur 24Hr 5.1 g/(24.h) Low 12.0-20.0 [facility] Comment on above: Order Comment: CX CC 24H VRB T.WESTW: 389lbsTV: 934.5g Performed By: #### U N24U, CR324 ####[address] [place] [address] Urea Nitrogen, Urine 549 mg/dL Normal No Range [facility] Comment on above: Order Comment: CX CC 24H VRB T.WESTW: 389lbsTV: 934.5g Performed By: #### U N24U, CR324 ####[employer] [address] [place] [address] Urine nitrogen, urine, timed on 04-11-2021 Interpretation and review of laboratory results Abnormal [facility] Work Phone: Urea Nitrogen, 24H Ur 5.1 g/(24.h) Low 12.0 - 20.0 g/(24.h) [facility] Work Phone: Urea Nitrogen, Ur 549 mg/dL No Range [facility] Work Phone: [facility] Work Phone: Basic Metabolic Panelon Calcium [Mass/Vol] 8.7 mg/dL Normal 8.4-10.4 [facility] Comment on above: Performed By: #### H EMDF, PHOS3, BMP3 ####[address] [place] [address] Glucose [Mass/Vol] 210 mg/dL High 70-100 [facility] Comment on above: Performed By: #### H EMDF, PHOS3, BMP3 ####[employer] [address] [employer] [place] [address] Urea nitrogen [Mass/Vol] 30 mg/dL High 9-20 [facility] Comment on above: Performed By: #### H EMDF, PHOS3, BMP3 ####[employer] [id number] [place], [place] Anion gap [Moles/Vol] 7 mmol/L Normal 3-13 [facility] Comment on above: Performed By: #### H EMDF, PHOS3, BMP3 ####[facility] [employer] [id number] [place], [place] CO2 [Moles/Vol] 28 mmol/L Normal 22-30 [facility] Comment on above: Performed By: #### H EMDF, PHOS3, BMP3 ####[facility] [employer] [id number] [place], [place] Creatinine [Mass/Vol] 1.59 mg/dL High 0.52-1.25 [facility] Comment on above: Performed By: #### H EMDF, PHOS3, BMP3 ####[facility] [employer] [id number] [place], [place] GFR/1.73 sq M.predicted among blacks MDRD (S/P/Bld) [Vol rate/Area] 37.1 mL/min/{1.73_m2} Abnormal >60 [facility] Comment on above: Performed By: #### H EMDF, PHOS3, BMP3 ####[facility] [employer] [address] GFR/1.73 sq M.predicted among non-blacks MDRD (S/P/Bld) [Vol rate/Area] 32.0 mL/min/{1.73_m2} Abnormal >60 [facility] Comment on above: Result Comment: KDIG O guidelines provide the following GFR categories:Stage GFR(ml/min/1.73 m2) TermsG1 >=90 Normal or highG2 60-89 Mildly decreased*G3a 45-59 Mildly to moderately [id number] 30-44 Moderately to severely decreasedG4 15-29 Severely decreasedG5 <15 Kidney failure*Relative to young adult level.In the absence of evidence of kidney damage, neither GFRcategory G1 nor G2 fulfill the criteria for CKD.The CKD-EPI equation is validated in individuals 18 yearsof age and older. Currently the best equation forestimating glomerular filtration rate (GFR) from serumcreatinine in children is the Bedside Ly equation.It is less accurate in patients with extremes of musclemass, restriction of dietary protein, ingestion of creatine,extra-renal metabolism of creatinine, or treatment withmedications that affect renal tubular creatinine secretion. Performed By: #### H HERACLIO [employer], BMP3 ####[address] [place], [place] Potassium [Moles/Vol] 3.6 mmol/L Normal 3.5-5.1 [facility] Comment on above: Performed By: #### H HERACLIO NGO BMP3 ####[address] [place], [place] Chloride [Moles/Vol] 103 mmol/L Normal 98-107 [facility] Comment on above: Performed By: #### H HERACLIO NGO BMP3 ####[address] [place], [place] Sodium [Moles/Vol] 138 mmol/L Normal 135-145 [facility] Comment on above: Performed By: #### H HERACLIO NGO, BMP3 ####[address] Anion gap [Moles/Vol] 7 mmol/L 3 - 13 mmol/L [facility] Calcium [Mass/Vol] 8.7 mg/dL 8.4 - 10. 4 mg/dL [facility] Chloride [Moles/Vol] 103 mmol/L 98 - 10 7 mmol/L [facility] CO2 [Moles/Vol] 28 mmol/L 22 - 30 mmol/L [facility] Creatinine [Mass/Vol] 1.59 mg/dL High 0.52 - 1.25 mg/dL [facility] EGFR IF NonAfrican [place] 32.0 mL/min Abnormal >60 [facility] GFR/1.73 sq M.predicted among blacks MDRD (S/P/Bld) [Vol rate/Area] 37.1 mL/min/{1.73_m2} Abnormal >60 [facility] Glucose [Mass/Vol] 210 mg/dL High 70 - 100 mg/dL [facility] Interpretation and review of laboratory results Abnormal [facility] Potassium [Moles/Vol] 3.6 mmol/L 3.5 - 5.1 mmol/L [facility] Sodium [Moles/Vol] 138 mmol/L 135 - 145 mmol/L [facility] Urea nitrogen (BldV) [Mass/Vol] 30 mg/dL High 9 - 20 mg/dL [facility] CBC auto differentialon Absolute Baso # 0.0 10*3/uL 0.0 - 0.2 10*3/uL [facility] Absolute Neut # 2.3 10*3/uL 1.8 - 7.0 10*3/uL [facility] Basophils/100 WBC (Bld) 0.9 % 0.0 - 2.0 % [facility] Eosinophils (Bld) [#/Vol] 0.3 10*3/uL 0.0 - 0.5 10*3/uL [facility] Eosinophils/100 WBC (Bld) 5.5 % 1.0 - 6.0 % [facility] Granulocytes/100 WBC (Bld) 49.8 % 40.0 - 80.0 % [facility] Hematocrit (Bld) [Volume fraction] 26.8 % Low 35.0 - 47.0 % [facility] Hemoglobin.gastrointes tinal spec 1 Ql (Stl) 8.4 g/dL Low 11.7 - 16.0 g/dL [facility] Interpretation and review of laboratory results Abnormal [facility] Lymphocytes (Bld) [#/Vol] 1.4 10*3/uL 1.0 - 4.3 10*3/uL [facility] Lymphocytes/100 WBC (Bld) 30.9 % 20.0 - 40.0 % [facility] MCH (RBC) [Entitic mass] 27.4 pg 26.0 - 34.0 pg [facility] MCHC (RBC) [Mass/Vol] 31.4 % Low 32.0 - 36.0 % [facility] MCV (RBC) [Entitic vol] 87.1 fL 79.0 - 98.0 fL [facility] Monocytes (Bld) [#/Vol] 0.6 10*3/uL 0.0 - 0.8 10*3/uL [facility] Monocytes/100 WBC (Bld) 12.9 % High 2.0 - 10.0 % [facility] Platelet distribution width (Bld) [Ratio] 18.7 % High 11.5 - 14.5 % [facility] Platelet mean volume (Bld) [Entitic vol] 10.5 fL High 7.4 - 10.4 fL [facility] Platelets (Bld) [#/Vol] 211 10*3/uL 140 - 440 10*3/uL [facility] RBC (Bld) [#/Vol] 3.08 10*6/uL Low 3.80 - 5.2 0 10*6/uL [facility] WBC (Bld) [#/Vol] 4.5 10*3/uL 3.6 - 10.7 10*3/uL [facility] Complete Urinalysison 2021 Appearance (U) Ex.Turbid Abnormal Clear [facility] Comment on above: Result Comment: . Performed By: #### C UA2 ####[facility] [employer] [id number] [place], [place] Bacteria Few Abnormal Negative [facility] Comment on above: Result Comment: . Performed By: #### C UA2 ####[facility] [employer] [address] Bilirubin,Urine Negative Normal Negative [facility] Comment on above: Result Comment: . Performed By: #### C UA2 ####[facility] [employer] [id number] [place], [place] Color (U) Yellow Normal Lt. Yellow [facility] Comment on above: Result Comment: . Performed By: #### C UA2 ####[facility] [employer] [id number] [place], [place] Glucose Ql (U) Normal Normal Normal (<70) [facility] Comment on above: Result Comment: . Performed By: #### C UA2 ####[facility] [employer] [id number] [place], [place] Ketone,Urine Negative Normal Negative [facility] Comment on above: Result Comment: . Performed By: #### C UA2 ####[facility] [employer] [id number] [place], [place] Leukocytes,Urine 500 Jimenez/uL Abnormal Negative [facility] Comment on above: Result Comment: . Performed By: #### C UA2 ####[facility] [address] [place] Nitrites,Urine Positive Abnormal Negative [facility] Comment on above: Result Comment: . Performed By: #### C UA2 ####[address] Occult Blood,Urine > 1.0 Abnormal Negative [facility] Comment on above: Result Comment: . Performed By: #### C UA2 ####[address] pH,Urine 5.5 Normal 5.0-8.0 [facility] Comment on above: Result Comment: . Performed By: #### C UA2 ####[address] Protein (U) [Mass/Vol] 70 mg/dL Abnormal Negative [facility] Comment on above: Result Comment: . Performed By: #### C UA2 ####[address] RBC, Urine 51 - 100 Abnormal 0-2 [facility] Comment on above: Result Comment: . Performed By: #### C UA2 ####[address] Specific [place],Urine 1.019 Normal 1.005 - 1.030 [facility] Comment on above: Result Comment: . Performed By: #### C UA2 ####[address] Squamous Epithelial 3 - 5 Normal 3-5 [facility] Comment on above: Result Comment: . Performed By: #### C UA2 ####[address] Urobilinogen,Urine Normal Normal Normal (0-1) [facility] Comment on above: Result Comment: . Performed By: #### C UA2 ####[address] WBC LM.HPF (Urine sed) [#/Area] /[HPF] Abnormal 0-5 [facility] Comment on above: Result Comment: . Performed By: #### C UA2 ####[facility] [employer] [id number] [place], [place] Creatinineon 04-10-2021 Creatinine [Mass/Vol] 1.62 mg/dL High 0.52-1.25 [facility] Comment on above: Performed By: #### C RTN3 ####[facility] [employer] [id number] [place], [place] GFR/1.73 sq M.predicted among blacks MDRD (S/P/Bld) [Vol rate/Area] 36.2 mL/min/{1.73_m2} Abnormal >60 [facility] Comment on above: Performed By: #### C RTN3 ####[address] [place], [place] GFR/1.73 sq M.predicted among non-blacks MDRD (S/P/Bld) [Vol rate/Area] 31.3 mL/min/{1.73_m2} Abnormal >60 [facility] Comment on above: Result Comment: KDIG O guidelines provide the following GFR categories:Stage GFR(ml/min/1.73 m2) TermsG1 >=90 Normal or highG2 60-89 Mildly decreased*G3a 45-59 Mildly to moderately [id number] 30-44 Moderately to severely decreasedG4 15-29 Severely decreasedG5 <15 Kidney failure*Relative to young adult level.In the absence of evidence of kidney damage, neither GFRcategory G1 nor G2 fulfill the criteria for CKD.The CKD-EPI equation is validated in individuals 18 yearsof age and older. Currently the best equation forestimating glomerular filtration rate (GFR) from serumcreatinine in children is the Bedside Ly equation.It is less accurate in patients with extremes of musclemass, restriction of dietary protein, ingestion of creatine,extra-renal metabolism of creatinine, or treatment withmedications that affect renal tubular creatinine secretion. Performed By: #### C RTN3 ####[facility] [employer] [id number] [place], [place] Creatinine, 24 HR Urineon Creatinine, 24H Ur 0.6 g/(24.h) Low 0.8 - 1.8 g/(24.h) [facility] Work Phone: Creatinine, Urine 62.2 mg/dL [facility] Work Phone: Total Volume 934 mL [facility] Work Phone: Creatinine, Serumon 04-10-19 22 EGFR IF NonAfrican [place] 31.3 mL/min Abnormal >60 [facility] Creatinine, Ur 24Hron 2021 Creatinine, Ur 24Hr 0.6 g/(24.h) Low 0.8-1.8 [facility] Comment on above: Order Comment: CX CC 24H VRB T.WESTW: 389lbsTV: 934.5g Performed By: #### U N24U, CR324 ####[address] [place] [address] Creatinine, Urine 62.2 mg/dL Normal [facility] Comment on above: Order Comment: CX CC 24H VRB T.WESTW: 389lbsTV: 934.5g Performed By: #### U N24U, CR324 ####[address] [place] [address] Total Volume 934 mL Normal [facility] Comment on above: Order Comment: CX CC 24H VRB T.WESTW: 389lbsTV: 934.5g Performed By: #### U N24U, CR324 ####[address] [place] [address] Glucose,Bedsideon 04-10-2021 Glucose [Mass/Vol] 211 mg/dL High 70-100 [facility] Comment on above: Result Comment: Test performed by glucose meter. Results may be 10%-15% lowerthan serum/plasma values. (CLIA ID [id number]) Performed By: #### B GLU ####[employer] [id number] [place] [address] Glucose [Mass/Vol] 184 mg/dL High 70-100 [facility] Comment on above: Result Comment: Test performed by glucose meter. Results may be 10%-15% lowerthan serum/plasma values. (CLIA ID [id number]) Performed By: #### B GLU ####[address] [place], [place] Glucose [Mass/Vol] 190 mg/dL High 70-100 [facility] Comment on above: Result Comment: Test performed by glucose meter. Results may be 10%-15% lowerthan serum/plasma values. (CLIA ID [id number]) Performed By: #### B GLU ####[address] [place], [place] Glucose [Mass/Vol] 216 mg/dL High 70-100 [facility] Comment on above: Result Comment: Test performed by glucose meter. Results may be 10%-15% lowerthan serum/plasma values. (CLIA ID [id number]) Performed By: #### B GLU ####[address] Hemogram w/ Autodiffon 04-10 Abs Baso Cnt 0.0 10*3/uL Normal 0.0-0.2 [facility] Comment on above: Performed By: #### H EMDF, PHOS3, BMP3 ####[address] [place], [place] Abs Neutrophile Cnt 2.3 10*3/uL Normal 1.8-7.0 [facility] Comment on above: Performed By: #### H EMDF, PHOS3, BMP3 ####[address] [place], [place] Basophils/100 WBC (Bld) 0.9 % Normal 0.0-2.0 [facility] Comment on above: Performed By: #### H EMDF, PHOS3, BMP3 ####[address] [place], [place] Eosinophils (Bld) [#/Vol] 0.3 10*3/uL Normal 0.0-0.5 [facility] Comment on above: Performed By: #### H EMDF, PHOS3, BMP3 ####[address] [place], [place] Eosinophils/100 WBC (Bld) 5.5 % Normal 1.0-6.0 [facility] Comment on above: Performed By: #### H HUBER PHOS3, BMP3 ####[address] [place], [place] Erythrocyte distribution width (RBC) [Ratio] 18.7 % High 11.5-14.5 [facility] Comment on above: Performed By: #### H EMDCarmelo, PHOS3, BMP3 ####[address] Granulocytes/100 WBC (Bld) 49.8 % Normal 40.0-80.0 [facility] Comment on above: Performed By: #### H EMDCarmelo, PHOS3, BMP3 ####[address] Hematocrit (Bld) [Volume fraction] 26.8 % Low 35.0-47.0 [facility] Comment on above: Performed By: #### H EMDF, PHOS3, BMP3 ####[address] Hemoglobin (Bld) [Mass/Vol] 8.4 g/dL Low 11.7-16.0 [facility] Comment on above: Performed By: #### H EMDF, PHOS3, BMP3 ####[address] Lymphocytes (Bld) [#/Vol] 1.4 10*3/uL Normal 1.0-4.3 [facility] Comment on above: Performed By: #### H EMDF, PHOS3, BMP3 ####[address] Lymphocytes/100 WBC (Bld) 30.9 % Normal 20.0-40.0 [facility] Comment on above: Performed By: #### H EMDF, PHOS3, BMP3 ####[address] MCH (RBC) [Entitic mass] 27.4 pg Normal 26.0-34.0 [facility] Comment on above: Performed By: #### H EMDF, PHOS3, BMP3 ####[address] MCHC 31.4 % Low 32.0-36.0 [facility] Comment on above: Performed By: #### H EMDF, PHOS3, BMP3 ####[address] MCV (RBC) [Entitic vol] 87.1 fL Normal 79.0-98.0 [facility] Comment on above: Performed By: #### H EMDF, PHOS3, BMP3 ####[address] Monocytes (Bld) [#/Vol] 0.6 10*3/uL Normal 0.0-0.8 [facility] Comment on above: Performed By: #### H EMDF, PHOS3, BMP3 ####[address] Monocytes/100 WBC (Bld) 12.9 % High 2.0-10.0 [facility] Comment on above: Performed By: #### H EMDF, PHOS3, BMP3 ####[address] Platelet mean volume (Bld) [Entitic vol] 10.5 fL High 7.4-10.4 [facility] Comment on above: Performed By: #### H EMDF, PHOS3, BMP3 ####[address] Platelets (Bld) [#/Vol] 211 10*3/uL Normal 140-440 [facility] Comment on above: Performed By: #### H EMDF, PHOS3, BMP3 ####[address] RBC (Bld) [#/Vol] 3.08 10*6/uL Low 3.80-5.20 [facility] Comment on above: Performed By: #### H EMDF, PHOS3, BMP3 ####[facility] [place] [address] WBC (Bld) [#/Vol] 4.5 10*3/uL Normal 3.6-10.7 [facility] Comment on above: Performed By: #### H HUBER PHOS3, BMP3 ####[address] [place] [address] No Panel Informationon 04-10 Interpretation and review of laboratory results Abnormal [facility] Work Phone: [facility] Work Phone: [facility] POCT Glucoseon 04-10-2021 Glucose [Mass/Vol] 211 mg/dL High 70 - 100 mg/dL [facility] Interpretation and review of laboratory results Abnormal [facility] Glucose [Mass/Vol] 184 mg/dL High 70 - 100 mg/dL [facility] Interpretation and review of laboratory results Abnormal [facility] Glucose [Mass/Vol] 190 mg/dL High 70 - 100 mg/dL [facility] Interpretation and review of laboratory results Abnormal [facility] Glucose [Mass/Vol] 216 mg/dL High 70 - 100 mg/dL [facility] Interpretation and review of laboratory results Abnormal [facility] Phosphoruson 04-10-2021 Phosphate [Mass/Vol] 4.2 mg/dL Normal 2.5-4.5 [facility] Comment on above: Performed By: #### H HUBER, PHOS3, BMP3 ####[facility] [place] [address] Phosphate [Mass/Vol] 4.2 mg/dL 2.5 - 4 .5 mg/dL [facility] Urinalysison 04-10-2021 Appearance (U) Ex.Turbid Abnormal Clear NA [facility] Bacteria, UA Few Abnormal Negative /[HPF] [facility] Bilirubin Urine Negative Negative mg/dL [facility] Color (U) Yellow Lt. Yellow NA [facility] Glucose, Ur Normal Normal (<70) mg/dL [facility] Interpretation and review of laboratory results Abnormal [facility] Ketones Ql (U) Negative Negative mg/dL [facility] LEUKOCYTES, UA 500 Abnormal Negative Jimenez/uL [facility] Nitrite, Urine Positive Abnormal Negative NA [facility] Occult Blood,Urine >1.0 Abnormal Negative mg/dL [facility] pH (U) 5.5 [pH] [facility] Protein (U) [Mass/Vol] 70 mg/dL Abnormal Negative FUENTES MMA RBC, UA 51-100 Abnormal 0 - 2 /[HPF] [facility] Specific [place], Urine 1.019 [facility] Squam Epithel, UA 3-5 3 - 5 /[HPF] [facility] Urobilinogen, Urine Normal Normal (0-1) mg/dL [facility] WBC, UA >100 Abnormal 0 - 5 /[HPF] [facility] Basic Metabolic Panelon 01-0 -2021 Anion gap [Moles/Vol] 9 mmol/L Normal 3-13 [facility] Comment on above: Performed By: #### H HUBER BMP3, PHOS3 ####[address] [employer] [place] [address] Calcium [Mass/Vol] 9.2 mg/dL Normal 8.4-10.4 [facility] Comment on above: Performed By: #### H HUBER BMP3, PHOS3 ####[address] [employer] [place] [address] CO2 [Moles/Vol] 29 mmol/L Normal 22-30 [facility] Comment on above: Performed By: #### H EMDCarmelo BMP3, PHOS3 ####[address] [employer] [place] [address] Glucose [Mass/Vol] 215 mg/dL High 70-100 [facility] Comment on above: Performed By: #### H EMDCarmelo BMP3, PHOS3 ####[address] [employer] [place] [address] Urea nitrogen [Mass/Vol] 29 mg/dL High 9-20 [facility] Comment on above: Performed By: #### H EMDCarmelo BMP3, PHOS3 ####[address] [employer] [place] [address] Creatinine [Mass/Vol] 1.65 mg/dL High 0.52-1.25 [facility] Comment on above: Performed By: #### H LAURA NGO PHOS3 ####[address] [place], [place] GFR/1.73 sq M.predicted among blacks MDRD (S/P/Bld) [Vol rate/Area] 35.4 mL/min/{1.73_m2} Abnormal >60 [facility] Comment on above: Performed By: #### H LAURA NGO, PHOS3 ####[address] [place], [place] GFR/1.73 sq M.predicted among non-blacks MDRD (S/P/Bld) [Vol rate/Area] 30.6 mL/min/{1.73_m2} Abnormal >60 [facility] Comment on above: Result Comment: KDIG O guidelines provide the following GFR categories:Stage GFR(ml/min/1.73 m2) TermsG1 >=90 Normal or highG2 60-89 Mildly decreased*G3a 45-59 Mildly to moderately [id number] 30-44 Moderately to severely decreasedG4 15-29 Severely decreasedG5 <15 Kidney failure*Relative to young adult level.In the absence of evidence of kidney damage, neither GFRcategory G1 nor G2 fulfill the criteria for CKD.The CKD-EPI equation is validated in individuals 18 yearsof age and older. Currently the best equation forestimating glomerular filtration rate (GFR) from serumcreatinine in children is the Bedside Ly equation.It is less accurate in patients with extremes of musclemass, restriction of dietary protein, ingestion of creatine,extra-renal metabolism of creatinine, or treatment withmedications that affect renal tubular creatinine secretion. Performed By: #### H LAURA NGO, PHOS3 ####[address] [place], [place] Potassium [Moles/Vol] 4.0 mmol/L Normal 3.5-5.1 [facility] Comment on above: Performed By: #### H LAURA NGO, PHOS3 ####[address] [place] [address] Chloride [Moles/Vol] 101 mmol/L Normal 98-107 [facility] Comment on above: Performed By: #### H LAURA NGO, PHOS3 ####[facility] [place] [address] Sodium [Moles/Vol] 139 mmol/L Normal 135-145 [facility] Comment on above: Performed By: #### H LAURA NGO, PHOS3 ####[facility] [place] [address] Anion gap [Moles/Vol] 9 mmol/L 3 - 13 mmol/L [facility] Calcium [Mass/Vol] 9.2 mg/dL 8.4 - 10. 4 mg/dL [facility] Chloride [Moles/Vol] 101 mmol/L 98 - 10 7 mmol/L [facility] CO2 [Moles/Vol] 29 mmol/L 22 - 30 mmol/L [facility] Creatinine [Mass/Vol] 1.65 mg/dL High 0.52 - 1.25 mg/dL [facility] EGFR IF NonAfrican [place] 30.6 mL/min Abnormal >60 [facility] GFR/1.73 sq M.predicted among blacks MDRD (S/P/Bld) [Vol rate/Area] 35.4 mL/min/{1.73_m2} Abnormal >60 [facility] Glucose [Mass/Vol] 215 mg/dL High 70 - 100 mg/dL [facility] Interpretation and review of laboratory results Abnormal [facility] Potassium [Moles/Vol] 4.0 mmol/L 3.5 - 5.1 mmol/L [facility] Sodium [Moles/Vol] 139 mmol/L 135 - 145 mmol/L [facility] Urea nitrogen (BldV) [Mass/Vol] 29 mg/dL High 9 - 20 mg/dL [facility] CBC auto differentialon -0 Absolute Baso # 0.0 10*3/uL 0.0 - 0.2 10*3/uL [facility] Absolute Neut # 2.3 10*3/uL 1.8 - 7.0 10*3/uL [facility] Basophils/100 WBC (Bld) 0.8 % 0.0 - 2.0 % [facility] Eosinophils (Bld) [#/Vol] 0.3 10*3/uL 0.0 - 0.5 10*3/uL [facility] Eosinophils/100 WBC (Bld) 6.0 % 1.0 - 6.0 % [facility] Granulocytes/100 WBC (Bld) 47.6 % 40.0 - 80.0 % [facility] Hematocrit (Bld) [Volume fraction] 27.8 % Low 35.0 - 47.0 % [facility] Hemoglobin.gastrointes tinal spec 1 Ql (Stl) 8.8 g/dL Low 11.7 - 16.0 g/dL [facility] Interpretation and review of laboratory results Abnormal [facility] Lymphocytes (Bld) [#/Vol] 1.6 10*3/uL 1.0 - 4.3 10*3/uL [facility] Lymphocytes/100 WBC (Bld) 33.1 % 20.0 - 40.0 % [facility] MCH (RBC) [Entitic mass] 27.7 pg 26.0 - 34.0 pg [facility] MCHC (RBC) [Mass/Vol] 31.6 % Low 32.0 - 36.0 % [facility] MCV (RBC) [Entitic vol] 87.7 fL 79.0 - 98.0 fL [facility] Monocytes (Bld) [#/Vol] 0.6 10*3/uL 0.0 - 0.8 10*3/uL [facility] Monocytes/100 WBC (Bld) 12.5 % High 2.0 - 10.0 % [facility] Platelet distribution width (Bld) [Ratio] 19.3 % High 11.5 - 14.5 % [facility] Platelet mean volume (Bld) [Entitic vol] 10.3 fL 7.4 - 10.4 fL [facility] Platelets (Bld) [#/Vol] 210 10*3/uL 140 - 440 10*3/uL [facility] RBC (Bld) [#/Vol] 3.17 10*6/uL Low 3.80 - 5.2 0 10*6/uL [facility] WBC (Bld) [#/Vol] 4.8 10*3/uL 3.6 - 10.7 10*3/uL [facility] Creatinine, Ur 24Hron 2021 Creatinine, Ur 24Hr 0.0 g/(24.h) Low 0.8-1.8 [facility] Comment on above: Performed By: #### C R324, CC24H ####[facility] [employer] [id number] [place] [address] Creatinine, Urine 0.6 mg/dL Normal [facility] Comment on above: Performed By: #### C R324, CC24H ####[address] [facility] [place] [address] Glucose,Bedsideon 04-09-2021 Glucose [Mass/Vol] 256 mg/dL High 70-100 [facility] Comment on above: Result Comment: Test performed by glucose meter. Results may be 10%-15% lowerthan serum/plasma values. (CLIA ID [id number]) Performed By: #### B GLU ####[address] [place] [address] Glucose [Mass/Vol] 273 mg/dL High 70-100 [facility] Comment on above: Result Comment: Test performed by glucose meter. Results may be 10%-15% lowerthan serum/plasma values. (CLIA ID [id number]) Performed By: #### B GLU ####[facility] [employer] [id number] [place] [address] Glucose [Mass/Vol] 206 mg/dL High 70-100 [facility] Comment on above: Result Comment: Test performed by glucose meter. Results may be 10%-15% lowerthan serum/plasma values. (CLIA ID [id number]) Performed By: #### B GLU ####[facility] [employer] [id number] [place] [address] Glucose [Mass/Vol] 212 mg/dL High 70-100 [facility] Comment on above: Result Comment: Test performed by glucose meter. Results may be 10%-15% lowerthan serum/plasma values. (CLIA ID [id number]) Performed By: #### B GLU ####[facility] [employer] [id number] [place] [address] Hemogram w/ Autodiffon 04-09 Abs Baso Cnt 0.0 10*3/uL Normal 0.0-0.2 [facility] Comment on above: Performed By: #### H EMDF, BMP3, PHOS3 ####[address] [place], [place] Abs Neutrophile Cnt 2.3 10*3/uL Normal 1.8-7.0 [facility] Comment on above: Performed By: #### H EMDF, BMP3, PHOS3 ####[address] Basophils/100 WBC (Bld) 0.8 % Normal 0.0-2.0 [facility] Comment on above: Performed By: #### H EMDF, BMP3, PHOS3 ####[address] Eosinophils (Bld) [#/Vol] 0.3 10*3/uL Normal 0.0-0.5 [facility] Comment on above: Performed By: #### H EMDF, BMP3, PHOS3 ####[address] Eosinophils/100 WBC (Bld) 6.0 % Normal 1.0-6.0 [facility] Comment on above: Performed By: #### H EMDF, BMP3, PHOS3 ####[address] Erythrocyte distribution width (RBC) [Ratio] 19.3 % High 11.5-14.5 [facility] Comment on above: Performed By: #### H EMDF, BMP3, PHOS3 ####[address] Granulocytes/100 WBC (Bld) 47.6 % Normal 40.0-80.0 [facility] Comment on above: Performed By: #### H EMDF, BMP3, PHOS3 ####[address] Hematocrit (Bld) [Volume fraction] 27.8 % Low 35.0-47.0 [facility] Comment on above: Performed By: #### H EMDF, BMP3, PHOS3 ####[address] Hemoglobin (Bld) [Mass/Vol] 8.8 g/dL Low 11.7-16.0 [facility] Comment on above: Performed By: #### H EMDF, BMP3, PHOS3 ####[address] Lymphocytes (Bld) [#/Vol] 1.6 10*3/uL Normal 1.0-4.3 [facility] Comment on above: Performed By: #### H EMDF, BMP3, PHOS3 ####[address] Lymphocytes/100 WBC (Bld) 33.1 % Normal 20.0-40.0 [facility] Comment on above: Performed By: #### H EMDF, BMP3, PHOS3 ####[address] MCH (RBC) [Entitic mass] 27.7 pg Normal 26.0-34.0 [facility] Comment on above: Performed By: #### H EMDF, BMP3, PHOS3 ####[address] MCHC 31.6 % Low 32.0-36.0 [facility] Comment on above: Performed By: #### H EMDF, BMP3, PHOS3 ####[address] MCV (RBC) [Entitic vol] 87.7 fL Normal 79.0-98.0 [facility] Comment on above: Performed By: #### H EMDF, BMP3, PHOS3 ####[address] Monocytes (Bld) [#/Vol] 0.6 10*3/uL Normal 0.0-0.8 [facility] Comment on above: Performed By: #### H EMDF, BMP3, PHOS3 ####[address] Monocytes/100 WBC (Bld) 12.5 % High 2.0-10.0 [facility] Comment on above: Performed By: #### H LAURA NGO, PHOS3 ####[address] [place], [place] Platelet mean volume (Bld) [Entitic vol] 10.3 fL Normal 7.4-10.4 [facility] Comment on above: Performed By: #### H LAURA NGO, PHOS3 ####[address] [place] Platelets (Bld) [#/Vol] 210 10*3/uL Normal 140-440 [facility] Comment on above: Performed By: #### H LAURA NGO, PHOS3 ####[address] RBC (Bld) [#/Vol] 3.17 10*6/uL Low 3.80-5.20 [facility] Comment on above: Performed By: #### H EDILBERTO NGO3, PHOS3 ####[address] [place], [place] WBC (Bld) [#/Vol] 4.8 10*3/uL Normal 3.6-10.7 [facility] Comment on above: Performed By: #### H HUBER BMP3, PHOS3 ####[address] No Panel Informationon 04-09 [facility] POCT Glucoseon 04-09-2021 Glucose [Mass/Vol] 256 mg/dL High 70 - 100 mg/dL [facility] Interpretation and review of laboratory results Abnormal [facility] Glucose [Mass/Vol] 273 mg/dL High 70 - 100 mg/dL [facility] Interpretation and review of laboratory results Abnormal [facility] Glucose [Mass/Vol] 206 mg/dL High 70 - 100 mg/dL [facility] Interpretation and review of laboratory results Abnormal [facility] Glucose [Mass/Vol] 212 mg/dL High 70 - 100 mg/dL [facility] Interpretation and review of laboratory results Abnormal [facility] Phosphoruson 04-09-2021 Phosphate [Mass/Vol] 4.0 mg/dL Normal 2.5-4.5 [facility] Comment on above: Performed By: #### H EMDF, BMP3, PHOS3 ####[facility] [employer] [id number] [place] [address] Phosphate [Mass/Vol] 4.0 mg/dL 2.5 - 4 .5 mg/dL [facility] Basic Metabolic Panelon Anion gap [Moles/Vol] 5 mmol/L Normal 3-13 [facility] Comment on above: Performed By: #### H EMDF, BMP3, PHOS3 ####[facility] [employer] [id number] [place] [address] Calcium [Mass/Vol] 8.7 mg/dL Normal 8.4-10.4 [facility] Comment on above: Performed By: #### H EMDF, BMP3, PHOS3 ####[facility] [employer] [id number] [place] [address] CO2 [Moles/Vol] 30 mmol/L Normal 22-30 [facility] Comment on above: Performed By: #### H EMDF, BMP3, PHOS3 ####[facility] [employer] [address] [place] [address] Creatinine [Mass/Vol] 1.62 mg/dL High 0.52-1.25 [facility] Comment on above: Performed By: #### H EMDF, BMP3, PHOS3 ####[facility] [employer] [place] [address] GFR/1.73 sq M.predicted among blacks MDRD (S/P/Bld) [Vol rate/Area] 36.2 mL/min/{1.73_m2} Abnormal >60 [facility] Comment on above: Performed By: #### H EMDF, BMP3, PHOS3 ####[facility] [employer] [id number] [place] [address] GFR/1.73 sq M.predicted among non-blacks MDRD (S/P/Bld) [Vol rate/Area] 31.3 mL/min/{1.73_m2} Abnormal >60 [facility] Comment on above: Result Comment: KDIG O guidelines provide the following GFR categories:Stage GFR(ml/min/1.73 m2) TermsG1 >=90 Normal or highG2 60-89 Mildly decreased*G3a 45-59 Mildly to moderately [id number] 30-44 Moderately to severely decreasedG4 15-29 Severely decreasedG5 <15 Kidney failure*Relative to young adult level.In the absence of evidence of kidney damage, neither GFRcategory G1 nor G2 fulfill the criteria for CKD.The CKD-EPI equation is validated in individuals 18 yearsof age and older. Currently the best equation forestimating glomerular filtration rate (GFR) from serumcreatinine in children is the Bedside Ly equation.It is less accurate in patients with extremes of musclemass, restriction of dietary protein, ingestion of creatine,extra-renal metabolism of creatinine, or treatment withmedications that affect renal tubular creatinine secretion. Performed By: #### H EMDF, BMP3, PHOS3 ####[address] [place] [address] Glucose [Mass/Vol] 181 mg/dL High 70-100 [facility] Comment on above: Performed By: #### H EMDF, BMP3, PHOS3 ####[address] [place] [address] Urea nitrogen [Mass/Vol] 18 mg/dL Normal 9-20 [facility] Comment on above: Performed By: #### H EMDF, BMP3, PHOS3 ####[address] [place] [address] Chloride [Moles/Vol] 103 mmol/L Normal 98-107 [facility] Comment on above: Performed By: #### H EMDF, BMP3, PHOS3 ####[address] [place] [address] Potassium [Moles/Vol] 3.6 mmol/L Normal 3.5-5.1 [facility] Comment on above: Performed By: #### H EMDF, BMP3, PHOS3 ####[facility] [id number] [place] [address] Sodium [Moles/Vol] 137 mmol/L Normal 135-145 [facility] Comment on above: Performed By: #### H LAURA NGO PHOS3 ####[facility] [place] [address] Anion gap [Moles/Vol] 5 mmol/L 3 - 13 mmol/L [facility] Calcium [Mass/Vol] 8.7 mg/dL 8.4 - 10. 4 mg/dL [facility] Chloride [Moles/Vol] 103 mmol/L 98 - 10 7 mmol/L [facility] CO2 [Moles/Vol] 30 mmol/L 22 - 30 mmol/L [facility] Creatinine [Mass/Vol] 1.62 mg/dL High 0.52 - 1.25 mg/dL [facility] EGFR IF NonAfrican [place] 31.3 mL/min Abnormal >60 [facility] GFR/1.73 sq M.predicted among blacks MDRD (S/P/Bld) [Vol rate/Area] 36.2 mL/min/{1.73_m2} Abnormal >60 [facility] Glucose [Mass/Vol] 181 mg/dL High 70 - 100 mg/dL [facility] Interpretation and review of laboratory results Abnormal [facility] Potassium [Moles/Vol] 3.6 mmol/L 3.5 - 5.1 mmol/L [facility] Sodium [Moles/Vol] 137 mmol/L 135 - 145 mmol/L [facility] Urea nitrogen (BldV) [Mass/Vol] 18 mg/dL 9 - 20 mg/dL [facility] CBC auto differentialon Absolute Baso # 0.0 10*3/uL 0.0 - 0.2 10*3/uL [facility] Absolute Neut # 2.1 10*3/uL 1.8 - 7.0 10*3/uL [facility] Basophils/100 WBC (Bld) 0.7 % 0.0 - 2.0 % [facility] Eosinophils (Bld) [#/Vol] 0.2 10*3/uL 0.0 - 0.5 10*3/uL [facility] Eosinophils/100 WBC (Bld) 5.1 % 1.0 - 6.0 % [facility] Granulocytes/100 WBC (Bld) 49.7 % 40.0 - 80.0 % [facility] Hematocrit (Bld) [Volume fraction] 25.0 % Low 35.0 - 47.0 % [facility] Hemoglobin.gastrointes tinal spec 1 Ql (Stl) 8.1 g/dL Low 11.7 - 16.0 g/dL [facility] Interpretation and review of laboratory results Abnormal [facility] Lymphocytes (Bld) [#/Vol] 1.3 10*3/uL 1.0 - 4.3 10*3/uL [facility] Lymphocytes/100 WBC (Bld) 32.3 % 20.0 - 40.0 % [facility] MCH (RBC) [Entitic mass] 28.4 pg 26.0 - 34.0 pg [facility] MCHC (RBC) [Mass/Vol] 32.4 % 32.0 - 36.0 % [facility] MCV (RBC) [Entitic vol] 87.5 fL 79.0 - 98.0 fL [facility] Monocytes (Bld) [#/Vol] 0.5 10*3/uL 0.0 - 0.8 10*3/uL [facility] Monocytes/100 WBC (Bld) 12.2 % High 2.0 - 10.0 % [facility] Platelet distribution width (Bld) [Ratio] 18.9 % High 11.5 - 14.5 % [facility] Platelet mean volume (Bld) [Entitic vol] 10.2 fL 7.4 - 10.4 fL [facility] Platelets (Bld) [#/Vol] 187 10*3/uL 140 - 440 10*3/uL [facility] RBC (Bld) [#/Vol] 2.86 10*6/uL Low 3.80 - 5.2 0 10*6/uL [facility] WBC (Bld) [#/Vol] 4.2 10*3/uL 3.6 - 10.7 10*3/uL [facility] Creat Clearance,24Hron 04-08 Creat Clearance,24Hr 17.8 mL/min/{1.73_m2} Low 80.0 -125.0 [facility] Comment on above: Performed By: #### C R324, CC24H ####[facility] [address] [place] [address] Creatinine, Ur 24 Hr 0.6 g/(24.h) Low 0.8-1.8 [facility] Comment on above: Performed By: #### C R324, CC24H ####[facility] [address] [place], [place] Creatinine, Urine 70.0 mg/dL Normal [facility] Comment on above: Performed By: #### C R324, CC24H ####[facility] [employer] [address] [place], [place] Body height 157.48 cm Normal [facility] Comment on above: Performed By: #### C R324, CC24H ####[facility] [employer] [address] [place], [place] Total Volume 859 mL Normal [facility] Comment on above: Performed By: #### C R324, CC24H ####[facility] [address] [place], [place] Creatinine [Mass/Vol] 1.60 mg/dL High 0.52-1.25 [facility] Comment on above: Performed By: #### C R324, CC24H ####[facility] [address] [place], [place] Creatinine Clearance, Urine, 24 HROrdered By: Giuliana Do on 04-08-2021 Creatinine [Mass/Vol] 1.6 mg/dL High 0.52 - 1.25 mg/dL [employer] Work Phone: Creatinine Clearance 17.8 mL/min/{1.73_m2} Low 80.0 - 125.0 mL/min/{1.7 3_m2} [facility] Work Phone: Creatinine, 24H Ur 0.6 g/(24.h) Low 0.8 - 1.8 g/(24.h) [facility] Work Phone: Creatinine, Ur 70.0 mg/dL [facility] Work Phone: height 62.0 [in_i] [facility] Work Phone: Total Volume 859 mL [facility] Work Phone: Weight 394 [lb_av] [facility] Work Phone: Creatinine, 24 HR Urineon Creatinine, 24H Ur 0.0 g/(24.h) Low 0.8 - 1.8 g/(24.h) [facility] Work Phone: Creatinine, Urine 0.6 mg/dL [facility] Work Phone: Glucose,Bedsideon 04-08-2021 Glucose [Mass/Vol] 239 mg/dL High 70-100 [facility] Comment on above: Result Comment: Test performed by glucose meter. Results may be 10%-15% lowerthan serum/plasma values. (CLIA ID [id number]) Performed By: #### B GLU ####[address] [place] [address] Glucose [Mass/Vol] 191 mg/dL High 70100 [facility] Comment on above: Result Comment: Test performed by glucose meter. Results may be 10%-15% lowerthan serum/plasma values. (CLIA ID [id number]) Performed By: #### B GLU ####[address] [place] [address] Glucose [Mass/Vol] 185 mg/dL High [address] Comment on above: Result Comment: Test performed by glucose meter. Results may be 10%-15% lowerthan serum/plasma values. (CLIA ID [id number]) Performed By: #### B GLU ####[address] [place] [address] Glucose [Mass/Vol] 173 mg/dL High 70-100 [facility] Comment on above: Result Comment: Test performed by glucose meter. Results may be 10%-15% lowerthan serum/plasma values. (CLIA ID [id number]) Performed By: #### B GLU ####[address] [place] [address] Hemogram w/ Autodiffon 04-08 Abs Baso Cnt 0.0 10*3/uL Normal 0.0-0.2 [facility] Comment on above: Performed By: #### H EMDF, BMP3, PHOS3 ####[address] Abs Neutrophile Cnt 2.1 10*3/uL Normal 1.8-7.0 [facility] Comment on above: Performed By: #### H EMDF, BMP3, PHOS3 ####[address] Basophils/100 WBC (Bld) 0.7 % Normal 0.0-2.0 [facility] Comment on above: Performed By: #### H EMDF, BMP3, PHOS3 ####[address] Eosinophils (Bld) [#/Vol] 0.2 10*3/uL Normal 0.0-0.5 [facility] Comment on above: Performed By: #### H EMDF, BMP3, PHOS3 ####[address] Eosinophils/100 WBC (Bld) 5.1 % Normal 1.0-6.0 [facility] Comment on above: Performed By: #### H EMDF, BMP3, PHOS3 ####[address] Erythrocyte distribution width (RBC) [Ratio] 18.9 % High 11.5-14.5 [facility] Comment on above: Performed By: #### H EMDF, BMP3, PHOS3 ####[address] Granulocytes/100 WBC (Bld) 49.7 % Normal 40.0-80.0 [facility] Comment on above: Performed By: #### H EMDF, BMP3, PHOS3 ####[address] Hematocrit (Bld) [Volume fraction] 25.0 % Low 35.0-47.0 [facility] Comment on above: Performed By: #### H EMDF, BMP3, PHOS3 ####[address] [place], [place] Hemoglobin (Bld) [Mass/Vol] 8.1 g/dL Low 11.7-16.0 [facility] Comment on above: Performed By: #### H EMDF, BMP3, PHOS3 ####[address] [place], [place] Lymphocytes (Bld) [#/Vol] 1.3 10*3/uL Normal 1.0-4.3 [facility] Comment on above: Performed By: #### H EMDF, BMP3, PHOS3 ####[address] [place], [place] Lymphocytes/100 WBC (Bld) 32.3 % Normal 20.0-40.0 [facility] Comment on above: Performed By: #### H EMDF, BMP3, PHOS3 ####[address] MCH (RBC) [Entitic mass] 28.4 pg Normal 26.0-34.0 [facility] Comment on above: Performed By: #### H EMDF, BMP3, PHOS3 ####[address] [place], [place] MCHC 32.4 % Normal 32.0-36.0 [facility] Comment on above: Performed By: #### H EMDF, BMP3, PHOS3 ####[address] MCV (RBC) [Entitic vol] 87.5 fL Normal 79.0-98.0 [facility] Comment on above: Performed By: #### H EMDF, BMP3, PHOS3 ####[address] Monocytes (Bld) [#/Vol] 0.5 10*3/uL Normal 0.0-0.8 [facility] Comment on above: Performed By: #### H EMDF, BMP3, PHOS3 ####[address] Monocytes/100 WBC (Bld) 12.2 % High 2.0-10.0 [facility] Comment on above: Performed By: #### H EMDF, BMP3, PHOS3 ####[facility] [employer] [id number] [place], [place] Platelet mean volume (Bld) [Entitic vol] 10.2 fL Normal 7.4-10.4 [facility] Comment on above: Performed By: #### H EMDF, BMP3, PHOS3 ####[facility] [employer] [address] [place], [place] Platelets (Bld) [#/Vol] 187 10*3/uL Normal 140-440 [facility] Comment on above: Performed By: #### H EMDF, BMP3, PHOS3 ####[address] [place], [place] RBC (Bld) [#/Vol] 2.86 10*6/uL Low 3.80-5.20 [facility] Comment on above: Performed By: #### H EMDF, BMP3, PHOS3 ####[facility] [employer] [address] [place], [place] WBC (Bld) [#/Vol] 4.2 10*3/uL Normal 3.6-10.7 [facility] Comment on above: Performed By: #### H EMDF, BMP3, PHOS3 ####[facility] [employer] [id number] [place], [place] No Panel InformationOrdered By: Giuliana Do on 04-08-2021 Interpretation and review of laboratory results Abnormal [facility] Work Phone: [facility] Work Phone: No Panel Informationon 04-08 [facility] POCT Glucoseon 04-08-2021 Glucose [Mass/Vol] 239 mg/dL High 70 - 100 mg/dL [facility] Interpretation and review of laboratory results Abnormal [facility] Glucose [Mass/Vol] 191 mg/dL High 70 - 100 mg/dL [facility] Interpretation and review of laboratory results Abnormal [facility] Glucose [Mass/Vol] 185 mg/dL High 70 - 100 mg/dL [facility] Interpretation and review of laboratory results Abnormal [facility] Glucose [Mass/Vol] 173 mg/dL High 70 - 100 mg/dL [facility] Interpretation and review of laboratory results Abnormal [facility] Phosphoruson 04-08-2021 Phosphate [Mass/Vol] 3.5 mg/dL Normal 2.5-4.5 [facility] Comment on above: Performed By: #### H EMDF, BMP3, PHOS3 ####[facility] [employer] [id number] [place] [place] [address] Phosphate [Mass/Vol] 3.5 mg/dL 2.5 - 4 .5 mg/dL [facility] Basic Metabolic Panelon Calcium [Mass/Vol] 9.0 mg/dL Normal 8.4-10.4 [facility] Comment on above: Performed By: #### H EMDF, PHOS3, BMP3 ####[facility] [employer] [address] [place] [address] Glucose [Mass/Vol] 205 mg/dL High 70-100 [facility] Comment on above: Performed By: #### H EMDF, PHOS3, BMP3 ####[facility] [employer] [address] [place] [address] Anion gap [Moles/Vol] 6 mmol/L Normal 3-13 [facility] Comment on above: Performed By: #### H EMDF, PHOS3, BMP3 ####[facility] [employer] [address] [place] [address] CO2 [Moles/Vol] 30 mmol/L Normal 22-30 [facility] Comment on above: Performed By: #### H EMDF, PHOS3, BMP3 ####[facility] [employer] [address] [place] [place] [address] Creatinine [Mass/Vol] 1.40 mg/dL High 0.52-1.25 [facility] Comment on above: Performed By: #### H EMDF, PHOS3, BMP3 ####[facility] [employer] [address] [place] [address] GFR/1.73 sq M.predicted among blacks MDRD (S/P/Bld) [Vol rate/Area] 43.2 mL/min/{1.73_m2} Abnormal >60 [facility] Comment on above: Performed By: #### H EMDF, PHOS3, BMP3 ####[facility] [employer] [address] [place] [address] GFR/1.73 sq M.predicted among non-blacks MDRD (S/P/Bld) [Vol rate/Area] 37.3 mL/min/{1.73_m2} Abnormal >60 [facility] Comment on above: Result Comment: KDIG O guidelines provide the following GFR categories:Stage GFR(ml/min/1.73 m2) TermsG1 >=90 Normal or highG2 60-89 Mildly decreased*G3a 45-59 Mildly to moderately [id number] 30-44 Moderately to severely decreasedG4 15-29 Severely decreasedG5 <15 Kidney failure*Relative to young adult level.In the absence of evidence of kidney damage, neither GFRcategory G1 nor G2 fulfill the criteria for CKD.The CKD-EPI equation is validated in individuals 18 yearsof age and older. Currently the best equation forestimating glomerular filtration rate (GFR) from serumcreatinine in children is the Bedside Ly equation.It is less accurate in patients with extremes of musclemass, restriction of dietary protein, ingestion of creatine,extra-renal metabolism of creatinine, or treatment withmedications that affect renal tubular creatinine secretion. Performed By: #### H EMDF PHOS3, BMP3 ####[facility] [employer] [id number] [place] [address] Urea nitrogen [Mass/Vol] 14 mg/dL Normal 9-20 [facility] Comment on above: Performed By: #### H EMDCarmelo PHOS3, BMP3 ####[facility] [employer] [address] [place] [address] Chloride [Moles/Vol] 102 mmol/L Normal 98-107 [facility] Comment on above: Performed By: #### H EMDF PHOS3, BMP3 ####[facility] [place] [address] Potassium [Moles/Vol] 4.0 mmol/L Normal 3.5-5.1 [facility] Comment on above: Performed By: #### H EMDF, PHOS3, BMP3 ####[facility] [place] [address] Sodium [Moles/Vol] 139 mmol/L Normal 135-145 [facility] Comment on above: Performed By: #### H EMDF, PHOS3, BMP3 ####[facility] [place] [address] Anion gap [Moles/Vol] 6 mmol/L 3 - 13 mmol/L [facility] Calcium [Mass/Vol] 9.0 mg/dL 8.4 - 10. 4 mg/dL [facility] Chloride [Moles/Vol] 102 mmol/L 98 - 10 7 mmol/L [facility] CO2 [Moles/Vol] 30 mmol/L 22 - 30 mmol/L [facility] Creatinine [Mass/Vol] 1.4 mg/dL High 0.52 - 1.25 mg/dL [facility] EGFR IF NonAfrican [place] 37.3 mL/min Abnormal >60 [facility] GFR/1.73 sq M.predicted among blacks MDRD (S/P/Bld) [Vol rate/Area] 43.2 mL/min/{1.73_m2} Abnormal >60 [facility] Glucose [Mass/Vol] 205 mg/dL High 70 - 100 mg/dL [facility] Interpretation and review of laboratory results Abnormal [facility] Potassium [Moles/Vol] 4.0 mmol/L 3.5 - 5.1 mmol/L [facility] Sodium [Moles/Vol] 139 mmol/L 135 - 145 mmol/L [facility] Urea nitrogen (BldV) [Mass/Vol] 14 mg/dL 9 - 20 mg/dL [facility] CBC auto differentialon Absolute Baso # 0.0 10*3/uL 0.0 - 0.2 10*3/uL [facility] Absolute Neut # 2.0 10*3/uL 1.8 - 7.0 10*3/uL [facility] Basophils/100 WBC (Bld) 0.8 % 0.0 - 2.0 % [facility] Eosinophils (Bld) [#/Vol] 0.1 10*3/uL 0.0 - 0.5 10*3/uL [facility] Eosinophils/100 WBC (Bld) 3.3 % 1.0 - 6.0 % [facility] Granulocytes/100 WBC (Bld) 53.3 % 40.0 - 80.0 % [facility] Hematocrit (Bld) [Volume fraction] 27.2 % Low 35.0 - 47.0 % [facility] Hemoglobin.gastrointes tinal spec 1 Ql (Stl) 8.7 g/dL Low 11.7 - 16.0 g/dL [facility] Interpretation and review of laboratory results Abnormal [facility] Lymphocytes (Bld) [#/Vol] 1.2 10*3/uL 1.0 - 4.3 10*3/uL [facility] Lymphocytes/100 WBC (Bld) 31.2 % 20.0 - 40.0 % [facility] MCH (RBC) [Entitic mass] 27.9 pg 26.0 - 34.0 pg [facility] MCHC (RBC) [Mass/Vol] 32.0 % 32.0 - 36.0 % [facility] MCV (RBC) [Entitic vol] 87.3 fL 79.0 - 98.0 fL [facility] Monocytes (Bld) [#/Vol] 0.4 10*3/uL 0.0 - 0.8 10*3/uL [facility] Monocytes/100 WBC (Bld) 11.4 % High 2.0 - 10.0 % [facility] Platelet distribution width (Bld) [Ratio] 18.9 % High 11.5 - 14.5 % [facility] Platelet mean volume (Bld) [Entitic vol] 9.8 fL 7.4 - 10.4 fL [facility] Platelets (Bld) [#/Vol] 206 10*3/uL 140 - 440 10*3/uL [facility] RBC (Bld) [#/Vol] 3.11 10*6/uL Low 3.80 - 5.2 0 10*6/uL [facility] WBC (Bld) [#/Vol] 3.7 10*3/uL 3.6 - 10.7 10*3/uL [facility] Glucose,Bedsideon 04-07-2021 Glucose [Mass/Vol] 183 mg/dL High 70-100 [facility] Comment on above: Result Comment: Test performed by glucose meter. Results may be 10%-15% lowerthan serum/plasma values. (CLIA ID [id number]) Performed By: #### B GLU ####[facility] [employer] [id number] [place], [place] Glucose [Mass/Vol] 185 mg/dL High 70-100 [facility] Comment on above: Result Comment: Test performed by glucose meter. Results may be 10%-15% lowerthan serum/plasma values. (CLIA ID [id number]) Performed By: #### B GLU ####[facility] [employer] [address] [place], [place] Glucose [Mass/Vol] 191 mg/dL High 70-100 [facility] Comment on above: Result Comment: Test performed by glucose meter. Results may be 10%-15% lowerthan serum/plasma values. (CLIA ID [id number]) Performed By: #### B GLU ####[facility] [employer] [address] Glucose [Mass/Vol] 189 mg/dL High 70-100 [facility] Comment on above: Result Comment: Test performed by glucose meter. Results may be 10%-15% lowerthan serum/plasma values. (CLIA ID [id number]) Performed By: #### B GLU ####[facility] [employer] [address] Hemogram w/ Autodiffon 04-07 Abs Baso Cnt 0.0 10*3/uL Normal 0.0-0.2 [facility] Comment on above: Performed By: #### H EMDF, PHOS3, BMP3 ####[facility] [employer] [id number] [place], [place] Abs Neutrophile Cnt 2.0 10*3/uL Normal 1.8-7.0 [facility] Comment on above: Performed By: #### H EMDF, PHOS3, BMP3 ####[facility] [employer] [address] [place], [place] Basophils/100 WBC (Bld) 0.8 % Normal 0.0-2.0 [facility] Comment on above: Performed By: #### H HUBER PHOS3, BMP3 ####[address] Eosinophils (Bld) [#/Vol] 0.1 10*3/uL Normal 0.0-0.5 [facility] Comment on above: Performed By: #### H EMDCarmelo PHOS3, BMP3 ####[address] Eosinophils/100 WBC (Bld) 3.3 % Normal 1.0-6.0 [facility] Comment on above: Performed By: #### H HUBER, PHOS3, BMP3 ####[address] Erythrocyte distribution width (RBC) [Ratio] 18.9 % High 11.5-14.5 [facility] Comment on above: Performed By: #### H HUBER PHOS3, BMP3 ####[address] Granulocytes/100 WBC (Bld) 53.3 % Normal 40.0-80.0 [facility] Comment on above: Performed By: #### H EMDCarmelo, PHOS3, BMP3 ####[address] Hematocrit (Bld) [Volume fraction] 27.2 % Low 35.0-47.0 [facility] Comment on above: Performed By: #### H EMDF, PHOS3, BMP3 ####[address] Hemoglobin (Bld) [Mass/Vol] 8.7 g/dL Low 11.7-16.0 [facility] Comment on above: Performed By: #### H EMDF, PHOS3, BMP3 ####[address] Lymphocytes (Bld) [#/Vol] 1.2 10*3/uL Normal 1.0-4.3 [facility] Comment on above: Performed By: #### H EMDF, PHOS3, BMP3 ####[address] Lymphocytes/100 WBC (Bld) 31.2 % Normal 20.0-40.0 [facility] Comment on above: Performed By: #### H EMDF, PHOS3, BMP3 ####[address] MCH (RBC) [Entitic mass] 27.9 pg Normal 26.0-34.0 [facility] Comment on above: Performed By: #### H EMDCarmelo, PHOS3, BMP3 ####[address] MCHC 32.0 % Normal 32.0-36.0 [facility] Comment on above: Performed By: #### H EMDF, PHOS3, BMP3 ####[address] MCV (RBC) [Entitic vol] 87.3 fL Normal 79.0-98.0 [facility] Comment on above: Performed By: #### H EMDF, PHOS3, BMP3 ####[address] Monocytes (Bld) [#/Vol] 0.4 10*3/uL Normal 0.0-0.8 [facility] Comment on above: Performed By: #### H EMDF, PHOS3, BMP3 ####[address] Monocytes/100 WBC (Bld) 11.4 % High 2.0-10.0 [facility] Comment on above: Performed By: #### H EMDF, PHOS3, BMP3 ####[address] Platelet mean volume (Bld) [Entitic vol] 9.8 fL Normal 7.4-10.4 [facility] Comment on above: Performed By: #### H EMDF, PHOS3, BMP3 ####[facility] [place], [place] Platelets (Bld) [#/Vol] 206 10*3/uL Normal 140-440 [facility] Comment on above: Performed By: #### H EMDF, PHOS3, BMP3 ####[address] [place], [place] RBC (Bld) [#/Vol] 3.11 10*6/uL Low 3.80-5.20 [facility] Comment on above: Performed By: #### H EMDF, PHOS3, BMP3 ####[address] [place], [place] WBC (Bld) [#/Vol] 3.7 10*3/uL Normal 3.6-10.7 [facility] Comment on above: Performed By: #### H EMDF, PHOS3, BMP3 ####[address] [place], [place] No Panel Informationon 04-07 [facility] POCT Glucoseon 04-07-2021 Glucose [Mass/Vol] 183 mg/dL High 70 - 100 mg/dL [facility] Interpretation and review of laboratory results Abnormal [facility] Glucose [Mass/Vol] 185 mg/dL High 70 - 100 mg/dL [facility] Interpretation and review of laboratory results Abnormal [facility] Glucose [Mass/Vol] 191 mg/dL High 70 - 100 mg/dL [facility] Interpretation and review of laboratory results Abnormal [facility] Glucose [Mass/Vol] 189 mg/dL High 70 - 100 mg/dL [facility] Interpretation and review of laboratory results Abnormal [facility] Phosphoruson 04-07-2021 Phosphate [Mass/Vol] 3.2 mg/dL Normal 2.5-4.5 [facility] Comment on above: Performed By: #### H EMDF, PHOS3, BMP3 ####[address] [place], [place] Phosphate [Mass/Vol] 3.2 mg/dL 2.5 - 4 .5 mg/dL [facility] Basic Metabolic Panelon 0 Calcium [Mass/Vol] 8.8 mg/dL Normal 8.4-10.4 [facility] Comment on above: Performed By: #### P HOS3, HEMDF, BMP3 ####[facility] [employer] [id number] [place], [place] Anion gap [Moles/Vol] 7 mmol/L Normal 3-13 [facility] Comment on above: Performed By: #### P HOS3, HEMDF, BMP3 ####[facility] [employer] [id number] [place], [place] CO2 [Moles/Vol] 27 mmol/L Normal 22-30 [facility] Comment on above: Performed By: #### P HOS3, HEMDF, BMP3 ####[facility] [employer] [address] [place], [place] Creatinine [Mass/Vol] 1.72 mg/dL High 0.52-1.25 [facility] Comment on above: Performed By: #### P HOS3, HEMDF, BMP3 ####[facility] [place], [place] GFR/1.73 sq M.predicted among blacks MDRD (S/P/Bld) [Vol rate/Area] 33.7 mL/min/{1.73_m2} Abnormal >60 [facility] Comment on above: Performed By: #### P HOS3, HEMDF, BMP3 ####[facility] [employer] [id number] [place], [place] GFR/1.73 sq M.predicted among non-blacks MDRD (S/P/Bld) [Vol rate/Area] 29.1 mL/min/{1.73_m2} Abnormal >60 [facility] Comment on above: Result Comment: KDIG O guidelines provide the following GFR categories:Stage GFR(ml/min/1.73 m2) TermsG1 >=90 Normal or highG2 60-89 Mildly decreased*G3a 45-59 Mildly to moderately kkehpigohI7y 30-44 Moderately to severely decreasedG4 15-29 Severely decreasedG5 <15 Kidney failure*Relative to young adult level.In the absence of evidence of kidney damage, neither GFRcategory G1 nor G2 fulfill the criteria for CKD.The CKD-EPI equation is validated in individuals 18 yearsof age and older. Currently the best equation forestimating glomerular filtration rate (GFR) from serumcreatinine in children is the Bedside Ly equation.It is less accurate in patients with extremes of musclemass, restriction of dietary protein, ingestion of creatine,extra-renal metabolism of creatinine, or treatment withmedications that affect renal tubular creatinine secretion. Performed By: #### P HOS3, HEMDF, BMP3 ####[facility] [employer] [id number] [place], [place] Glucose [Mass/Vol] 224 mg/dL High 70-100 [facility] Comment on above: Performed By: #### P HOS3, HEMDF, BMP3 ####[address] [place], [place] Urea nitrogen [Mass/Vol] 18 mg/dL Normal 9-20 [facility] Comment on above: Performed By: #### P HOS3, HEMDF, BMP3 ####[address] [place], [place] Chloride [Moles/Vol] 102 mmol/L Normal 98-107 [facility] Comment on above: Performed By: #### P HOS3, HEMDF, BMP3 ####[address] [place], [place] Potassium [Moles/Vol] 3.7 mmol/L Normal 3.5-5.1 [facility] Comment on above: Performed By: #### P HOS3, HEMDF, BMP3 ####[address] [place] [address] Sodium [Moles/Vol] 136 mmol/L Normal 135-145 [facility] Comment on above: Performed By: #### P HOS3, HEMDF, BMP3 ####[address] [place] [address] Anion gap [Moles/Vol] 7 mmol/L 3 - 13 mmol/L [facility] Calcium [Mass/Vol] 8.8 mg/dL 8.4 - 10. 4 mg/dL [facility] Chloride [Moles/Vol] 102 mmol/L 98 - 10 7 mmol/L [facility] CO2 [Moles/Vol] 27 mmol/L 22 - 30 mmol/L [facility] Creatinine [Mass/Vol] 1.72 mg/dL High 0.52 - 1.25 mg/dL [facility] EGFR IF NonAfrican [place] 29.1 mL/min Abnormal >60 [facility] GFR/1.73 sq M.predicted among blacks MDRD (S/P/Bld) [Vol rate/Area] 33.7 mL/min/{1.73_m2} Abnormal >60 [facility] Glucose [Mass/Vol] 224 mg/dL High 70 - 100 mg/dL [facility] Interpretation and review of laboratory results Abnormal [facility] Potassium [Moles/Vol] 3.7 mmol/L 3.5 - 5.1 mmol/L [facility] Sodium [Moles/Vol] 136 mmol/L 135 - 145 mmol/L [facility] Urea nitrogen (BldV) [Mass/Vol] 18 mg/dL 9 - 20 mg/dL [facility] CBC auto differentialon Absolute Baso # 0.0 10*3/uL 0.0 - 0.2 10*3/uL [facility] Absolute Neut # 2.1 10*3/uL 1.8 - 7.0 10*3/uL [facility] Basophils/100 WBC (Bld) 0.9 % 0.0 - 2.0 % [facility] Eosinophils (Bld) [#/Vol] 0.2 10*3/uL 0.0 - 0.5 10*3/uL [facility] Eosinophils/100 WBC (Bld) 4.4 % 1.0 - 6.0 % [facility] Granulocytes/100 WBC (Bld) 51.0 % 40.0 - 80.0 % [facility] Hematocrit (Bld) [Volume fraction] 25.1 % Low 35.0 - 47.0 % [facility] Hemoglobin.gastrointes tinal spec 1 Ql (Stl) 7.9 g/dL Low 11.7 - 16.0 g/dL [facility] Interpretation and review of laboratory results Abnormal [facility] Lymphocytes (Bld) [#/Vol] 1.3 10*3/uL 1.0 - 4.3 10*3/uL [facility] Lymphocytes/100 WBC (Bld) 32.6 % 20.0 - 40.0 % [facility] MCH (RBC) [Entitic mass] 27.6 pg 26.0 - 34.0 pg [facility] MCHC (RBC) [Mass/Vol] 31.5 % Low 32.0 - 36.0 % [facility] MCV (RBC) [Entitic vol] 87.6 fL 79.0 - 98.0 fL [facility] Monocytes (Bld) [#/Vol] 0.4 10*3/uL 0.0 - 0.8 10*3/uL [facility] Monocytes/100 WBC (Bld) 11.1 % High 2.0 - 10.0 % [facility] Platelet distribution width (Bld) [Ratio] 18.9 % High 11.5 - 14.5 % [facility] Platelet mean volume (Bld) [Entitic vol] 9.7 fL 7.4 - 10.4 fL [facility] Platelets (Bld) [#/Vol] 200 10*3/uL 140 - 440 10*3/uL [facility] RBC (Bld) [#/Vol] 2.86 10*6/uL Low 3.80 - 5.2 0 10*6/uL [facility] WBC (Bld) [#/Vol] 4.0 10*3/uL 3.6 - 10.7 10*3/uL [facility] Glucose,Bedsideon 04-06-2021 Glucose [Mass/Vol] 162 mg/dL High 70-[address] [place] [address] Comment on above: Result Comment: Test performed by glucose meter. Results may be 10%-15% lowerthan serum/plasma values. (CLIA ID [id number]) Performed By: #### B GLU ####[address] [place] [address] Glucose [Mass/Vol] 204 mg/dL High 70-100 [facility] Comment on above: Result Comment: Test performed by glucose meter. Results may be 10%-15% lowerthan serum/plasma values. (CLIA ID [id number]) Performed By: #### B GLU ####[address] [place] [address] Glucose [Mass/Vol] 177 mg/dL High 70-100 [facility] Comment on above: Result Comment: Test performed by glucose meter. Results may be 10%-15% lowerthan serum/plasma values. (CLIA ID [id number]) Performed By: #### B GLU ####[address] [address] Glucose [Mass/Vol] 207 mg/dL High 70-100 [facility] Comment on above: Result Comment: Test performed by glucose meter. Results may be 10%-15% lowerthan serum/plasma values. (CLIA ID [id number]) Performed By: #### B GLU ####[address] Hemogram w/ Autodiffon 04-06 Abs Baso Cnt 0.0 10*3/uL Normal 0.0-0.2 [facility] Comment on above: Performed By: #### P HOS3, HEMDF, BMP3 ####[address] Abs Neutrophile Cnt 2.1 10*3/uL Normal 1.8-7.0 [facility] Comment on above: Performed By: #### P HOS3, HEMDF, BMP3 ####[address] Basophils/100 WBC (Bld) 0.9 % Normal 0.0-2.0 [facility] Comment on above: Performed By: #### P HOS3, HEMDF, BMP3 ####[address] Eosinophils (Bld) [#/Vol] 0.2 10*3/uL Normal 0.0-0.5 [facility] Comment on above: Performed By: #### P HOS3, HEMDF, BMP3 ####[address] [address] Eosinophils/100 WBC (Bld) 4.4 % Normal 1.0-6.0 [facility] Comment on above: Performed By: #### P HOS3, HEMDF, BMP3 ####[address] Erythrocyte distribution width (RBC) [Ratio] 18.9 % High 11.5-14.5 [facility] Comment on above: Performed By: #### P HOS3, HEMDF, BMP3 ####[address] Granulocytes/100 WBC (Bld) 51.0 % Normal 40.0-80.0 [facility] Comment on above: Performed By: #### P HOS3, HEMDF, BMP3 ####[address] Hematocrit (Bld) [Volume fraction] 25.1 % Low 35.0-47.0 [facility] Comment on above: Performed By: #### P HOS3, HEMDF, BMP3 ####[address] Hemoglobin (Bld) [Mass/Vol] 7.9 g/dL Low 11.7-16.0 [facility] Comment on above: Performed By: #### P HOS3, HEMDF, BMP3 ####[address] Lymphocytes (Bld) [#/Vol] 1.3 10*3/uL Normal 1.0-4.3 [facility] Comment on above: Performed By: #### P HOS3, HEMDF, BMP3 ####[address] Lymphocytes/100 WBC (Bld) 32.6 % Normal 20.0-40.0 [facility] Comment on above: Performed By: #### P HOS3, HEMDF, BMP3 ####[address] MCH (RBC) [Entitic mass] 27.6 pg Normal 26.0-34.0 [facility] Comment on above: Performed By: #### P HOS3, HEMDF, BMP3 ####[address], [place] MCHC 31.5 % Low 32.0-36.0 [facility] Comment on above: Performed By: #### P HOS3, HEMDF, BMP3 ####[address] MCV (RBC) [Entitic vol] 87.6 fL Normal 79.0-98.0 [facility] Comment on above: Performed By: #### P HOS3, HEMDF, BMP3 ####[address] Monocytes (Bld) [#/Vol] 0.4 10*3/uL Normal 0.0-0.8 [facility] Comment on above: Performed By: #### P HOS3, HEMDF, BMP3 ####[address] Monocytes/100 WBC (Bld) 11.1 % High 2.0-10.0 [facility] Comment on above: Performed By: #### P HOS3, HEMDF, BMP3 ####[address] Platelet mean volume (Bld) [Entitic vol] 9.7 fL Normal 7.4-10.4 [facility] Comment on above: Performed By: #### P HOS3, HEMDF, BMP3 ####[address] Platelets (Bld) [#/Vol] 200 10*3/uL Normal 140-440 [facility] Comment on above: Performed By: #### P HOS3, HEMDF, BMP3 ####[address] RBC (Bld) [#/Vol] 2.86 10*6/uL Low 3.80-5.20 [facility] Comment on above: Performed By: #### P HOS3, HEMDF, BMP3 ####[address] WBC (Bld) [#/Vol] 4.0 10*3/uL Normal 3.6-10.7 [facility] Comment on above: Performed By: #### P HOS3, HEMDF, BMP3 ####[address] [place] [address] No Panel Informationon 04-06 [facility] POCT Glucoseon 04-06-2021 Glucose [Mass/Vol] 162 mg/dL High 70 - 100 mg/dL [facility] Interpretation and review of laboratory results Abnormal [facility] Glucose [Mass/Vol] 204 mg/dL High 70 - 100 mg/dL [facility] Interpretation and review of laboratory results Abnormal [facility] Glucose [Mass/Vol] 177 mg/dL High 70 - 100 mg/dL [facility] Interpretation and review of laboratory results Abnormal [facility] Glucose [Mass/Vol] 207 mg/dL High 70 - 100 mg/dL [facility] Interpretation and review of laboratory results Abnormal [facility] Phosphoruson 04-06-2021 Phosphate [Mass/Vol] 3.4 mg/dL Normal 2.5-4.5 [facility] Comment on above: Performed By: #### P HOS3, HEMDF, BMP3 ####[address] [place] [address] Phosphate [Mass/Vol] 3.4 mg/dL 2.5 - 4 .5 mg/dL [facility] Basic Metabolic Panelon Anion gap [Moles/Vol] 7 mmol/L Normal 3-13 [facility] Comment on above: Performed By: #### B MP3, HEMDF, PHOS3 ####[facility] [place] [address] Calcium [Mass/Vol] 8.8 mg/dL Normal 8.4-10.4 [facility] Comment on above: Performed By: #### B MP3, HEMDF, PHOS3 ####[address] [place] [address] CO2 [Moles/Vol] 29 mmol/L Normal 22-30 [facility] Comment on above: Performed By: #### B MP3, HEMDF, PHOS3 ####[facility] [employer] [id number] [place], [place] Glucose [Mass/Vol] 210 mg/dL High 70-100 [facility] Comment on above: Performed By: #### B MP3, HEMDF, PHOS3 ####[facility] [employer] [id number] [place], [place] Urea nitrogen [Mass/Vol] 16 mg/dL Normal 9-20 [facility] Comment on above: Performed By: #### B MP3, HEMDF, PHOS3 ####[facility] [employer] [address] [place], [place] Creatinine [Mass/Vol] 1.56 mg/dL High 0.52-1.25 [facility] Comment on above: Performed By: #### B MP3, HEMDF, PHOS3 ####[facility] [employer] [id number] [place], [place] GFR/1.73 sq M.predicted among blacks MDRD (S/P/Bld) [Vol rate/Area] 37.9 mL/min/{1.73_m2} Abnormal >60 [facility] Comment on above: Performed By: #### B MP3, HEMDF, PHOS3 ####[facility] [employer] [id number] [place] [address] GFR/1.73 sq M.predicted among non-blacks MDRD (S/P/Bld) [Vol rate/Area] 32.7 mL/min/{1.73_m2} Abnormal >60 [facility] Comment on above: Result Comment: KDIG O guidelines provide the following GFR categories:Stage GFR(ml/min/1.73 m2) TermsG1 >=90 Normal or highG2 60-89 Mildly decreased*G3a 45-59 Mildly to moderately inxrmxmwzX3l 30-44 Moderately to severely decreasedG4 15-29 Severely decreasedG5 <15 Kidney failure*Relative to young adult level.In the absence of evidence of kidney damage, neither GFRcategory G1 nor G2 fulfill the criteria for CKD.The CKD-EPI equation is validated in individuals 18 yearsof age and older. Currently the best equation forestimating glomerular filtration rate (GFR) from serumcreatinine in children is the Bedside Ly equation.It is less accurate in patients with extremes of musclemass, restriction of dietary protein, ingestion of creatine,extra-renal metabolism of creatinine, or treatment withmedications that affect renal tubular creatinine secretion. Performed By: #### B ALTON3, HEMLJ, PHOS3 ####[facility] [employer] [id number] [place], [place] Potassium [Moles/Vol] 4.0 mmol/L Normal 3.5-5.1 [facility] Comment on above: Performed By: #### B ATILIO CASTILLO PHOS3 ####[address] [place], [place] Chloride [Moles/Vol] 101 mmol/L Normal 98-107 [facility] Comment on above: Performed By: #### B ALTON3 HEMLJ PHOS3 ####[facility] [employer] [id number] [place], [place] Sodium [Moles/Vol] 137 mmol/L Normal 135-145 [facility] Comment on above: Performed By: #### B JONATHAN HEMLJ PHOS3 ####[facility] [employer] [id number] [place], [place] Anion gap [Moles/Vol] 7 mmol/L 3 - 13 mmol/L [facility] Calcium [Mass/Vol] 8.8 mg/dL 8.4 - 10. 4 mg/dL [facility] Chloride [Moles/Vol] 101 mmol/L 98 - 10 7 mmol/L [facility] CO2 [Moles/Vol] 29 mmol/L 22 - 30 mmol/L [facility] Creatinine [Mass/Vol] 1.56 mg/dL High 0.52 - 1.25 mg/dL [facility] EGFR IF NonAfrican [place] 32.7 mL/min Abnormal >60 [facility] GFR/1.73 sq M.predicted among blacks MDRD (S/P/Bld) [Vol rate/Area] 37.9 mL/min/{1.73_m2} Abnormal >60 [facility] Glucose [Mass/Vol] 210 mg/dL High 70 - 100 mg/dL [facility] Interpretation and review of laboratory results Abnormal [facility] Potassium [Moles/Vol] 4.0 mmol/L 3.5 - 5.1 mmol/L [facility] Sodium [Moles/Vol] 137 mmol/L 135 - 145 mmol/L [facility] Urea nitrogen (BldV) [Mass/Vol] 16 mg/dL 9 - 20 mg/dL [facility] CBC auto differentialon Absolute Baso # 0.0 10*3/uL 0.0 - 0.2 10*3/uL [facility] Absolute Neut # 2.2 10*3/uL 1.8 - 7.0 10*3/uL [facility] Basophils/100 WBC (Bld) 1.0 % 0.0 - 2.0 % [facility] Eosinophils (Bld) [#/Vol] 0.2 10*3/uL 0.0 - 0.5 10*3/uL [facility] Eosinophils/100 WBC (Bld) 5.4 % 1.0 - 6.0 % [facility] Granulocytes/100 WBC (Bld) 56.0 % 40.0 - 80.0 % [facility] Hematocrit (Bld) [Volume fraction] 26.0 % Low 35.0 - 47.0 % [facility] Hemoglobin.gastrointes tinal spec 1 Ql (Stl) 8.2 g/dL Low 11.7 - 16.0 g/dL [facility] Interpretation and review of laboratory results Abnormal [facility] Lymphocytes (Bld) [#/Vol] 1.0 10*3/uL 1.0 - 4.3 10*3/uL [facility] Lymphocytes/100 WBC (Bld) 26.4 % 20.0 - 40.0 % [facility] MCH (RBC) [Entitic mass] 27.7 pg 26.0 - 34.0 pg [facility] MCHC (RBC) [Mass/Vol] 31.4 % Low 32.0 - 36.0 % [facility] MCV (RBC) [Entitic vol] 88.1 fL 79.0 - 98.0 fL [facility] Monocytes (Bld) [#/Vol] 0.4 10*3/uL 0.0 - 0.8 10*3/uL [facility] Monocytes/100 WBC (Bld) 11.2 % High 2.0 - 10.0 % [facility] Platelet distribution width (Bld) [Ratio] 19.0 % High 11.5 - 14.5 % [facility] Platelet mean volume (Bld) [Entitic vol] 10.0 fL 7.4 - 10.4 fL [facility] Platelets (Bld) [#/Vol] 209 10*3/uL 140 - 440 10*3/uL [facility] RBC (Bld) [#/Vol] 2.95 10*6/uL Low 3.80 - 5.2 0 10*6/uL [facility] WBC (Bld) [#/Vol] 3.9 10*3/uL 3.6 - 10.7 10*3/uL [facility] Glucose,Bedsideon 04-05-2021 Glucose [Mass/Vol] 281 mg/dL [facility] [address] Comment on above: Result Comment: Test performed by glucose meter. Results may be 10%-15% lowerthan serum/plasma values. (CLIA ID [id number]) Performed By: #### B GLU ####[address] [place] [address] Glucose [Mass/Vol] 243 mg/dL [address] Comment on above: Result Comment: Test performed by glucose meter. Results may be 10%-15% lowerthan serum/plasma values. (CLIA ID [id number]) Performed By: #### B GLU ####[address] [employer] [place] [address] Glucose [Mass/Vol] 205 mg/dL [address] Comment on above: Result Comment: Test performed by glucose meter. Results may be 10%-15% lowerthan serum/plasma values. (CLIA ID [id number]) Performed By: #### B GLU ####[address] [place] [address] Glucose [Mass/Vol] 184 mg/dL [address] Comment on above: Result Comment: Test performed by glucose meter. Results may be 10%-15% lowerthan serum/plasma values. (CLIA ID [id number]) Performed By: #### B GLU ####[address] [place] [address] Hemogram w/ Autodiffon 04-05 Abs Baso Cnt 0.0 10*3/uL Normal 0.0-0.2 [facility] Comment on above: Performed By: #### B MP3, HEMDF, PHOS3 ####[address] [place], [place] Abs Neutrophile Cnt 2.2 10*3/uL Normal 1.8-7.0 [facility] Comment on above: Performed By: #### B MP3, HEMDF, PHOS3 ####[address] [place], [place] Basophils/100 WBC (Bld) 1.0 % Normal 0.0-2.0 [facility] Comment on above: Performed By: #### B MP3, HEMDF, PHOS3 ####[address] [place], [place] Eosinophils (Bld) [#/Vol] 0.2 10*3/uL Normal 0.0-0.5 [facility] Comment on above: Performed By: #### B MP3, HEMDF, PHOS3 ####[facility] [employer] [id number] [place], [place] Eosinophils/100 WBC (Bld) 5.4 % Normal 1.0-6.0 [facility] Comment on above: Performed By: #### B MP3, HEMDF, PHOS3 ####[address] [place], [place] Erythrocyte distribution width (RBC) [Ratio] 19.0 % High 11.5-14.5 [facility] Comment on above: Performed By: #### B MP3, HEMDF, PHOS3 ####[facility] [employer] [id number] [place], [place] Granulocytes/100 WBC (Bld) 56.0 % Normal 40.0-80.0 [facility] Comment on above: Performed By: #### B MP3, HEMDF, PHOS3 ####[facility] [employer] [id number] [place], [place] Hematocrit (Bld) [Volume fraction] 26.0 % Low 35.0-47.0 [facility] Comment on above: Performed By: #### B MPFilemon HEMLJ, PHOS3 ####[address] [place], [place] Hemoglobin (Bld) [Mass/Vol] 8.2 g/dL Low 11.7-16.0 [facility] Comment on above: Performed By: #### B MP3, HEMDF, PHOS3 ####[address] [place], [place] Lymphocytes (Bld) [#/Vol] 1.0 10*3/uL Normal 1.0-4.3 [facility] Comment on above: Performed By: #### B MP3, HEMDF, PHOS3 ####[address] [place], [place] Lymphocytes/100 WBC (Bld) 26.4 % Normal 20.0-40.0 [facility] Comment on above: Performed By: #### B MP3, HEMDF, PHOS3 ####[address] [place], [place] MCH (RBC) [Entitic mass] 27.7 pg Normal 26.0-34.0 [facility] Comment on above: Performed By: #### Alvaro MP3, HEMDF, PHOS3 ####[address] [place], [place] MCHC 31.4 % Low 32.0-36.0 [facility] Comment on above: Performed By: #### B MP3, HEMDF, PHOS3 ####[address] [place], [place] MCV (RBC) [Entitic vol] 88.1 fL Normal 79.0-98.0 [facility] Comment on above: Performed By: #### B MP3, HEMDF, PHOS3 ####[address] [place], [place] Monocytes (Bld) [#/Vol] 0.4 10*3/uL Normal 0.0-0.8 [facility] Comment on above: Performed By: #### B MP3, HEMDF, PHOS3 ####[address] [place], [place] Monocytes/100 WBC (Bld) 11.2 % High 2.0-10.0 [facility] Comment on above: Performed By: #### B MP3, HEMDF, PHOS3 ####[facility] [place], [place] Platelet mean volume (Bld) [Entitic vol] 10.0 fL Normal 7.4-10.4 [facility] Comment on above: Performed By: #### B MP3, HEMDF, PHOS3 ####[address] [place], [place] Platelets (Bld) [#/Vol] 209 10*3/uL Normal 140-440 [facility] Comment on above: Performed By: #### B MP3, HEMDF, PHOS3 ####[address] [place], [place] RBC (Bld) [#/Vol] 2.95 10*6/uL Low 3.80-5.20 [facility] Comment on above: Performed By: #### B MP3, HEMDF, PHOS3 ####[address] [place], [place] WBC (Bld) [#/Vol] 3.9 10*3/uL Normal 3.6-10.7 [facility] Comment on above: Performed By: #### B MP3, HEMDF, PHOS3 ####[address] [place], [place] No Panel Informationon 04-05 [facility] POCT Glucoseon 04-05-2021 Glucose [Mass/Vol] 281 mg/dL High 70 - 100 mg/dL [facility] Interpretation and review of laboratory results Abnormal [facility] Glucose [Mass/Vol] 243 mg/dL High 70 - 100 mg/dL [facility] Interpretation and review of laboratory results Abnormal [facility] Glucose [Mass/Vol] 205 mg/dL High 70 - 100 mg/dL [facility] Interpretation and review of laboratory results Abnormal [facility] Glucose [Mass/Vol] 184 mg/dL High 70 - 100 mg/dL [facility] Interpretation and review of laboratory results Abnormal [facility] Phosphoruson 04-05-2021 Phosphate [Mass/Vol] 3.3 mg/dL Normal 2.5-4.5 [facility] Comment on above: Performed By: #### B MP3, HEMDF, PHOS3 ####[address] [place] [address] Phosphate [Mass/Vol] 3.3 mg/dL 2.5 - 4 .5 mg/dL [facility] Basic Metabolic Panelon Calcium [Mass/Vol] 8.9 mg/dL Normal 8.4-10.4 [facility] Comment on above: Performed By: #### P HOS3, BMP3, HEMDF ####[address] [place] [address] Glucose [Mass/Vol] 229 mg/dL High 70-100 [facility] Comment on above: Performed By: #### P HOS3, BMP3, HEMDF ####[address] [place] [address] Anion gap [Moles/Vol] 8 mmol/L Normal 3-13 [facility] Comment on above: Performed By: #### P HOS3, BMP3, HEMDF ####[address] [place] [address] CO2 [Moles/Vol] 29 mmol/L Normal 22-30 [facility] Comment on above: Performed By: #### P HOS3, BMP3, HEMDF ####[address] [employer] [place] [address] Creatinine [Mass/Vol] 2.11 mg/dL High 0.52-1.25 [facility] Comment on above: Performed By: #### P HOS3, BMP3, HEMDF ####[address] [place], [place] GFR/1.73 sq M.predicted among blacks MDRD (S/P/Bld) [Vol rate/Area] 26.3 mL/min/{1.73_m2} Abnormal >60 [facility] Comment on above: Performed By: #### P HOS3, BMP3, HEMDF ####[address] [place], [place] GFR/1.73 sq M.predicted among non-blacks MDRD (S/P/Bld) [Vol rate/Area] 22.7 mL/min/{1.73_m2} Abnormal >60 [facility] Comment on above: Result Comment: KDIG O guidelines provide the following GFR categories:Stage GFR(ml/min/1.73 m2) TermsG1 >=90 Normal or highG2 60-89 Mildly decreased*G3a 45-59 Mildly to moderately aegvdjnnzX7f 30-44 Moderately to severely decreasedG4 15-29 Severely decreasedG5 <15 Kidney failure*Relative to young adult level.In the absence of evidence of kidney damage, neither GFRcategory G1 nor G2 fulfill the criteria for CKD.The CKD-EPI equation is validated in individuals 18 yearsof age and older. Currently the best equation forestimating glomerular filtration rate (GFR) from serumcreatinine in children is the Bedside Ly equation.It is less accurate in patients with extremes of musclemass, restriction of dietary protein, ingestion of creatine,extra-renal metabolism of creatinine, or treatment withmedications that affect renal tubular creatinine secretion. Performed By: #### P HOS3 BMP3, HEMDF ####[facility] [employer] [id number] [place], [place] Urea nitrogen [Mass/Vol] 23 mg/dL High 9-20 [facility] Comment on above: Performed By: #### P HOS3 BMP3, HEMDF ####[facility] [employer] [id number] [place], [place] Chloride [Moles/Vol] 102 mmol/L Normal 98-107 [facility] Comment on above: Performed By: #### P HOS3, BMP3, HEMDF ####[facility] [employer] [id number] [place], [place] Potassium [Moles/Vol] 3.9 mmol/L Normal 3.5-5.1 [facility] Comment on above: Performed By: #### P HOS3, BMP3, HEMDF ####[facility] [place], [place] Sodium [Moles/Vol] 139 mmol/L Normal 135-145 [facility] Comment on above: Performed By: #### P HOS3, BMP3, HEMDF ####[facility] [place], [place] Anion gap [Moles/Vol] 8 mmol/L 3 - 13 mmol/L [facility] Calcium [Mass/Vol] 8.9 mg/dL 8.4 - 10. 4 mg/dL [facility] Chloride [Moles/Vol] 102 mmol/L 98 - 10 7 mmol/L [facility] CO2 [Moles/Vol] 29 mmol/L 22 - 30 mmol/L [facility] Creatinine [Mass/Vol] 2.11 mg/dL High 0.52 - 1.25 mg/dL [facility] EGFR IF NonAfrican [place] 22.7 mL/min Abnormal >60 [facility] GFR/1.73 sq M.predicted among blacks MDRD (S/P/Bld) [Vol rate/Area] 26.3 mL/min/{1.73_m2} Abnormal >60 [facility] Glucose [Mass/Vol] 229 mg/dL High 70 - 100 mg/dL [facility] Interpretation and review of laboratory results Abnormal [facility] Potassium [Moles/Vol] 3.9 mmol/L 3.5 - 5.1 mmol/L [facility] Sodium [Moles/Vol] 139 mmol/L 135 - 145 mmol/L [facility] Urea nitrogen (BldV) [Mass/Vol] 23 mg/dL High 9 - 20 mg/dL [facility] CBC auto differentialon Absolute Baso # 0.0 10*3/uL 0.0 - 0.2 10*3/uL [facility] Absolute Neut # 2.0 10*3/uL 1.8 - 7.0 10*3/uL [facility] Basophils/100 WBC (Bld) 0.8 % 0.0 - 2.0 % [facility] Eosinophils (Bld) [#/Vol] 0.2 10*3/uL 0.0 - 0.5 10*3/uL [facility] Eosinophils/100 WBC (Bld) 6.2 % High 1.0 - 6.0 % [facility] Granulocytes/100 WBC (Bld) 51.8 % 40.0 - 80.0 % [facility] Hematocrit (Bld) [Volume fraction] 26.7 % Low 35.0 - 47.0 % [facility] Hemoglobin.gastrointes tinal spec 1 Ql (Stl) 8.4 g/dL Low 11.7 - 16.0 g/dL [facility] Interpretation and review of laboratory results Abnormal [facility] Lymphocytes (Bld) [#/Vol] 1.2 10*3/uL 1.0 - 4.3 10*3/uL [facility] Lymphocytes/100 WBC (Bld) 30.0 % 20.0 - 40.0 % [facility] MCH (RBC) [Entitic mass] 27.4 pg 26.0 - 34.0 pg [facility] MCHC (RBC) [Mass/Vol] 31.3 % Low 32.0 - 36.0 % [facility] MCV (RBC) [Entitic vol] 87.5 fL 79.0 - 98.0 fL [facility] Monocytes (Bld) [#/Vol] 0.4 10*3/uL 0.0 - 0.8 10*3/uL [facility] Monocytes/100 WBC (Bld) 11.2 % High 2.0 - 10.0 % [facility] Platelet distribution width (Bld) [Ratio] 19.0 % High 11.5 - 14.5 % [facility] Platelet mean volume (Bld) [Entitic vol] 10.0 fL 7.4 - 10.4 fL [facility] Platelets (Bld) [#/Vol] 237 10*3/uL 140 - 440 10*3/uL [facility] RBC (Bld) [#/Vol] 3.05 10*6/uL Low 3.80 - 5.2 0 10*6/uL [facility] WBC (Bld) [#/Vol] 3.9 10*3/uL 3.6 - 10.7 10*3/uL [facility] Glucose,Bedsideon 04-04-2021 Glucose [Mass/Vol] 194 mg/dL High 70-100 [facility] Comment on above: Result Comment: Test performed by glucose meter. Results may be 10%-15% lowerthan serum/plasma values. (CLIA ID [id number]) Performed By: #### B GLU ####[address] Glucose [Mass/Vol] 153 mg/dL High 70-100 [facility] Comment on above: Result Comment: Test performed by glucose meter. Results may be 10%-15% lowerthan serum/plasma values. (CLIA ID [id number]) Performed By: #### B GLU ####[address] Glucose [Mass/Vol] 195 mg/dL High 70-100 [facility] Comment on above: Result Comment: Test performed by glucose meter. Results may be 10%-15% lowerthan serum/plasma values. (CLIA ID [id number]) Performed By: #### B GLU ####[address] Hemogram w/ Autodiffon 04-04 Abs Baso Cnt 0.0 10*3/uL Normal 0.0-0.2 [facility] Comment on above: Performed By: #### P HOS3, BMP3, HEMDF ####[id number] [place], [place] Abs Neutrophile Cnt 2.0 10*3/uL Normal 1.8-7.0 [facility] Comment on above: Performed By: #### P HOS3, BMP3, HEMDF ####[address] Basophils/100 WBC (Bld) 0.8 % Normal 0.0-2.0 [facility] Comment on above: Performed By: #### P HOS3, BMP3, HEMDF ####[address] Eosinophils (Bld) [#/Vol] 0.2 10*3/uL Normal 0.0-0.5 [facility] Comment on above: Performed By: #### P HOS3, BMP3, HEMDF ####[address] Eosinophils/100 WBC (Bld) 6.2 % High 1.0-6.0 [facility] Comment on above: Performed By: #### P HOS3, BMP3, HEMDF ####[address] Erythrocyte distribution width (RBC) [Ratio] 19.0 % High 11.5-14.5 [facility] Comment on above: Performed By: #### P HOS3, BMP3, HEMDF ####[address] Granulocytes/100 WBC (Bld) 51.8 % Normal 40.0-80.0 [facility] Comment on above: Performed By: #### P HOS3, BMP3, HEMDF ####[address] [address] Hematocrit (Bld) [Volume fraction] 26.7 % Low 35.0-47.0 [facility] Comment on above: Performed By: #### P HOS3, BMP3, HEMDF ####[address] Hemoglobin (Bld) [Mass/Vol] 8.4 g/dL Low 11.7-16.0 [facility] Comment on above: Performed By: #### P HOS3, BMP3, HEMDF ####[address] Lymphocytes (Bld) [#/Vol] 1.2 10*3/uL Normal 1.0-4.3 [facility] Comment on above: Performed By: #### P HOS3, BMP3, HEMDF ####[address] Lymphocytes/100 WBC (Bld) 30.0 % Normal 20.0-40.0 [facility] Comment on above: Performed By: #### P HOS3, BMP3, HEMDF ####[address] MCH (RBC) [Entitic mass] 27.4 pg Normal 26.0-34.0 [facility] Comment on above: Performed By: #### P HOS3, BMP3, HEMDF ####[address] [place], [place] MCHC 31.3 % Low 32.0-36.0 [facility] Comment on above: Performed By: #### P HOS3, BMP3, HEMDF ####[address] [place], [place] MCV (RBC) [Entitic vol] 87.5 fL Normal 79.0-98.0 [facility] Comment on above: Performed By: #### P HOS3, BMP3, HEMDF ####[address] [place], [place] Monocytes (Bld) [#/Vol] 0.4 10*3/uL Normal 0.0-0.8 [facility] Comment on above: Performed By: #### P HOS3, BMP3, HEMDF ####[address] Monocytes/100 WBC (Bld) 11.2 % High 2.0-10.0 [facility] Comment on above: Performed By: #### P HOS3, BMP3, HEMDF ####[address] Platelet mean volume (Bld) [Entitic vol] 10.0 fL Normal 7.4-10.4 [facility] Comment on above: Performed By: #### P HOS3, BMP3, HEMDF ####[address] Platelets (Bld) [#/Vol] 237 10*3/uL Normal 140-440 [facility] Comment on above: Performed By: #### P HOS3, BMP3, HEMDF ####[address] RBC (Bld) [#/Vol] 3.05 10*6/uL Low 3.80-5.20 [facility] Comment on above: Performed By: #### P HOS3, BMP3, HEMDF ####[address] [place], [place] WBC (Bld) [#/Vol] 3.9 10*3/uL Normal 3.6-10.7 [facility] Comment on above: Performed By: #### P HOS3, BMP3, HEMDF ####[address] [place], [place] No Panel Informationon 04-04 [facility] PO[facility] Glucoseon 04-04-2021 Glucose [Mass/Vol] 194 mg/dL High 70 - 100 mg/dL [facility] Interpretation and review of laboratory results Abnormal [facility] Glucose [Mass/Vol] 153 mg/dL High 70 - 100 mg/dL [facility] Interpretation and review of laboratory results Abnormal [facility] Glucose [Mass/Vol] 195 mg/dL High 70 - 100 mg/dL [facility] Interpretation and review of laboratory results Abnormal [facility] Phosphoruson 04-04-2021 Phosphate [Mass/Vol] 3.8 mg/dL Normal 2.5-4.5 [facility] Comment on above: Performed By: #### P HOS3, BMP3, HEMDF ####[address] [place], [place] Phosphate [Mass/Vol] 3.8 mg/dL 2.5 - 4 .5 mg/dL [facility] Basic Metabolic Panelon Anion gap [Moles/Vol] 5 mmol/L Normal 3-13 [facility] Comment on above: Performed By: #### H EMDF, BMP3, PHOS3 ####[address] [place], [place] Calcium [Mass/Vol] 9.1 mg/dL Normal 8.4-10.4 [facility] Comment on above: Performed By: #### H EMDF, BMP3, PHOS3 ####[address] [place] [address] CO2 [Moles/Vol] 31 mmol/L High 22-30 [facility] Comment on above: Performed By: #### H EMDCarmelo, BMP3, PHOS3 ####[address] [place] [address] Glucose [Mass/Vol] 207 mg/dL High 70-100 [facility] Comment on above: Performed By: #### H EMDF, BMP3, PHOS3 ####[address] [place] [address] Urea nitrogen [Mass/Vol] 21 mg/dL High 9-20 [facility] Comment on above: Performed By: #### H EMDCarmelo, BMP3, PHOS3 ####[address] [place] [address] Creatinine [Mass/Vol] 2.03 mg/dL High 0.52-1.25 [facility] Comment on above: Performed By: #### H EMDF, BMP3, PHOS3 ####[address] [place] [address] GFR/1.73 sq M.predicted among blacks MDRD (S/P/Bld) [Vol rate/Area] 27.6 mL/min/{1.73_m2} Abnormal >60 [facility] Comment on above: Performed By: #### H EMDF, BMP3, PHOS3 ####[address] [address] GFR/1.73 sq M.predicted among non-blacks MDRD (S/P/Bld) [Vol rate/Area] 23.8 mL/min/{1.73_m2} Abnormal >60 [facility] Comment on above: Result Comment: KDIG O guidelines provide the following GFR categories:Stage GFR(ml/min/1.73 m2) TermsG1 >=90 Normal or highG2 60-89 Mildly decreased*G3a 45-59 Mildly to moderately gwsmhfgzdB2h 30-44 Moderately to severely decreasedG4 15-29 Severely decreasedG5 <15 Kidney failure*Relative to young adult level.In the absence of evidence of kidney damage, neither GFRcategory G1 nor G2 fulfill the criteria for CKD.The CKD-EPI equation is validated in individuals 18 yearsof age and older. Currently the best equation forestimating glomerular filtration rate (GFR) from serumcreatinine in children is the Bedside Ly equation.It is less accurate in patients with extremes of musclemass, restriction of dietary protein, ingestion of creatine,extra-renal metabolism of creatinine, or treatment withmedications that affect renal tubular creatinine secretion. Performed By: #### H LAURA NGO PHOS3 ####[address] [place] [address] Potassium [Moles/Vol] 3.9 mmol/L Normal 3.5-5.1 [facility] Comment on above: Performed By: #### H LAURA NGO PHOS3 ####[address] [place] [address] Sodium [Moles/Vol] 140 mmol/L Normal 135-145 [facility] Comment on above: Performed By: #### H LAURA NGO PHOS3 ####[address] [place] [address] Chloride [Moles/Vol] 104 mmol/L Normal 98-107 [facility] Comment on above: Performed By: #### H LAURA NGO PHOS3 ####[address] [place] [address] Anion gap [Moles/Vol] 5 mmol/L 3 - 13 mmol/L [facility] Calcium [Mass/Vol] 9.1 mg/dL 8.4 - 10. 4 mg/dL [facility] Chloride [Moles/Vol] 104 mmol/L 98 - 10 7 mmol/L [facility] CO2 [Moles/Vol] 31 mmol/L High 22 - 30 mmol/L [facility] Creatinine [Mass/Vol] 2.03 mg/dL High 0.52 - 1.25 mg/dL [facility] EGFR IF NonAfrican [place] 23.8 mL/min Abnormal >60 [facility] GFR/1.73 sq M.predicted among blacks MDRD (S/P/Bld) [Vol rate/Area] 27.6 mL/min/{1.73_m2} Abnormal >60 [facility] Glucose [Mass/Vol] 207 mg/dL High 70 - 100 mg/dL [facility] Interpretation and review of laboratory results Abnormal [facility] Potassium [Moles/Vol] 3.9 mmol/L 3.5 - 5.1 mmol/L [facility] Sodium [Moles/Vol] 140 mmol/L 135 - 145 mmol/L [facility] Urea nitrogen (BldV) [Mass/Vol] 21 mg/dL High 9 - 20 mg/dL [facility] CBC auto differentialon Absolute Baso # 0.0 10*3/uL 0.0 - 0.2 10*3/uL [facility] Absolute Neut # 2.3 10*3/uL 1.8 - 7.0 10*3/uL [facility] Basophils/100 WBC (Bld) 1.0 % 0.0 - 2.0 % [facility] Eosinophils (Bld) [#/Vol] 0.2 10*3/uL 0.0 - 0.5 10*3/uL [facility] Eosinophils/100 WBC (Bld) 5.1 % 1.0 - 6.0 % [facility] Granulocytes/100 WBC (Bld) 56.7 % 40.0 - 80.0 % [facility] Hematocrit (Bld) [Volume fraction] 25.9 % Low 35.0 - 47.0 % [facility] Hemoglobin.gastrointes tinal spec 1 Ql (Stl) 8.2 g/dL Low 11.7 - 16.0 g/dL [facility] Interpretation and review of laboratory results Abnormal [facility] Lymphocytes (Bld) [#/Vol] 1.1 10*3/uL 1.0 - 4.3 10*3/uL [facility] Lymphocytes/100 WBC (Bld) 26.8 % 20.0 - 40.0 % [facility] MCH (RBC) [Entitic mass] 27.6 pg 26.0 - 34.0 pg [facility] MCHC (RBC) [Mass/Vol] 31.6 % Low 32.0 - 36.0 % [facility] MCV (RBC) [Entitic vol] 87.5 fL 79.0 - 98.0 fL [facility] Monocytes (Bld) [#/Vol] 0.4 10*3/uL 0.0 - 0.8 10*3/uL [facility] Monocytes/100 WBC (Bld) 10.4 % High 2.0 - 10.0 % [facility] Platelet distribution width (Bld) [Ratio] 18.5 % High 11.5 - 14.5 % [facility] Platelet mean volume (Bld) [Entitic vol] 9.7 fL 7.4 - 10.4 fL [facility] Platelets (Bld) [#/Vol] 225 10*3/uL 140 - 440 10*3/uL [facility] RBC (Bld) [#/Vol] 2.96 10*6/uL Low 3.80 - 5.2 0 10*6/uL [facility] WBC (Bld) [#/Vol] 4.0 10*3/uL 3.6 - 10.7 10*3/uL [facility] Glucose,Bedsideon 04-03-2021 Glucose [Mass/Vol] 195 mg/dL [address] Comment on above: Result Comment: Test performed by glucose meter. Results may be 10%-15% lowerthan serum/plasma values. (CLIA ID [id number]) Performed By: #### B GLU ####[employer] [address] [place] [address] Glucose [Mass/Vol] 198 mg/dL [address] Comment on above: Result Comment: Test performed by glucose meter. Results may be 10%-15% lowerthan serum/plasma values. (CLIA ID [id number]) Performed By: #### B GLU ####[employer] [id number] [place] [address] Glucose [Mass/Vol] 177 mg/dL [address] Comment on above: Result Comment: Test performed by glucose meter. Results may be 10%-15% lowerthan serum/plasma values. (CLIA ID [id number]) Performed By: #### B GLU ####[employer] [address] [place] [address] Glucose [Mass/Vol] 193 mg/dL [address] Comment on above: Result Comment: Test performed by glucose meter. Results may be 10%-15% lowerthan serum/plasma values. (CLIA ID [id number]) Performed By: #### B GLU ####[address] Hemogram w/ Autodiffon 04-03 Abs Baso Cnt 0.0 10*3/uL Normal 0.0-0.2 [facility] Comment on above: Performed By: #### H EMDF, BMP3, PHOS3 ####[address] Abs Neutrophile Cnt 2.3 10*3/uL Normal 1.8-7.0 [facility] Comment on above: Performed By: #### H EMDF, BMP3, PHOS3 ####[address] Basophils/100 WBC (Bld) 1.0 % Normal 0.0-2.0 [facility] Comment on above: Performed By: #### H EMDF, BMP3, PHOS3 ####[address] Eosinophils (Bld) [#/Vol] 0.2 10*3/uL Normal 0.0-0.5 [facility] Comment on above: Performed By: #### H EMDF, BMP3, PHOS3 ####[address] Eosinophils/100 WBC (Bld) 5.1 % Normal 1.0-6.0 [facility] Comment on above: Performed By: #### H EMDF, BMP3, PHOS3 ####[address] Erythrocyte distribution width (RBC) [Ratio] 18.5 % High 11.5-14.5 [facility] Comment on above: Performed By: #### H EMDF, BMP3, PHOS3 ####[address] Granulocytes/100 WBC (Bld) 56.7 % Normal 40.0-80.0 [facility] Comment on above: Performed By: #### H EMDF, BMP3, PHOS3 ####[address] Hematocrit (Bld) [Volume fraction] 25.9 % Low 35.0-47.0 [facility] Comment on above: Performed By: #### H EMDF, BMP3, PHOS3 ####[address] Hemoglobin (Bld) [Mass/Vol] 8.2 g/dL Low 11.7-16.0 [facility] Comment on above: Performed By: #### H EMDF, BMP3, PHOS3 ####[address] Lymphocytes (Bld) [#/Vol] 1.1 10*3/uL Normal 1.0-4.3 [facility] Comment on above: Performed By: #### H EMDF, BMP3, PHOS3 ####[address] Lymphocytes/100 WBC (Bld) 26.8 % Normal 20.0-40.0 [facility] Comment on above: Performed By: #### H EMDF, BMP3, PHOS3 ####[address] MCH (RBC) [Entitic mass] 27.6 pg Normal 26.0-34.0 [facility] Comment on above: Performed By: #### H EMDF, BMP3, PHOS3 ####[address] MCHC 31.6 % Low 32.0-36.0 [facility] Comment on above: Performed By: #### H EMDF, BMP3, PHOS3 ####[address] MCV (RBC) [Entitic vol] 87.5 fL Normal 79.0-98.0 [facility] Comment on above: Performed By: #### H EMDF, BMP3, PHOS3 ####[address] Monocytes (Bld) [#/Vol] 0.4 10*3/uL Normal 0.0-0.8 [facility] Comment on above: Performed By: #### H EMDEDILBERTO Rhodes3, PHOS3 ####[address] [place], [place] Monocytes/100 WBC (Bld) 10.4 % High 2.0-10.0 [facility] Comment on above: Performed By: #### H EMDCarmelo BMP3, PHOS3 ####[address] [place], [place] Platelet mean volume (Bld) [Entitic vol] 9.7 fL Normal 7.4-10.4 [facility] Comment on above: Performed By: #### H EMDCarmelo BMP3, PHOS3 ####[address] Platelets (Bld) [#/Vol] 225 10*3/uL Normal 140-440 [facility] Comment on above: Performed By: #### H EMDCarmelo BMP3, PHOS3 ####[address] [place], [place] RBC (Bld) [#/Vol] 2.96 10*6/uL Low 3.80-5.20 [facility] Comment on above: Performed By: #### H EMDF, BMP3, PHOS3 ####[address] [place], [place] WBC (Bld) [#/Vol] 4.0 10*3/uL Normal 3.6-10.7 [facility] Comment on above: Performed By: #### H EMDF, BMP3, PHOS3 ####[address] No Panel Informationon 04-03 [facility] POCT Glucoseon 04-03-2021 Glucose [Mass/Vol] 195 mg/dL High 70 - 100 mg/dL [facility] Interpretation and review of laboratory results Abnormal [facility] Glucose [Mass/Vol] 198 mg/dL High 70 - 100 mg/dL [facility] Interpretation and review of laboratory results Abnormal [facility] Glucose [Mass/Vol] 177 mg/dL High 70 - 100 mg/dL [facility] Interpretation and review of laboratory results Abnormal [facility] Glucose [Mass/Vol] 193 mg/dL High 70 - 100 mg/dL [facility] Interpretation and review of laboratory results Abnormal [facility] Phosphoruson 04-03-2021 Phosphate [Mass/Vol] 3.6 mg/dL Normal 2.5-4.5 [facility] Comment on above: Performed By: #### H EMDF, BMP3, PHOS3 ####[address] [place] [address] Phosphate [Mass/Vol] 3.6 mg/dL 2.5 - 4 .5 mg/dL [facility] Basic Metabolic Panelon Anion gap [Moles/Vol] 7 mmol/L Normal 3-13 [facility] Comment on above: Performed By: #### B MP3, PHOS3, HEMDF ####[facility] [employer] [id number] [place] [address] Calcium [Mass/Vol] 8.9 mg/dL Normal 8.4-10.4 [facility] Comment on above: Performed By: #### B MP3, PHOS3, HEMDF ####[facility] [place] [place] [address] CO2 [Moles/Vol] 30 mmol/L Normal 22-30 [facility] Comment on above: Performed By: #### B MP3, PHOS3, HEMDF ####[facility] [employer] [id number] [place] [address] Glucose [Mass/Vol] 210 mg/dL High 70-100 [facility] Comment on above: Performed By: #### B MP3, PHOS3, HEMDF ####[facility] [facility] [place] [address] Urea nitrogen [Mass/Vol] 16 mg/dL Normal 9-20 [facility] Comment on above: Performed By: #### B MP3, PHOS3, HEMDF ####[id number] [place], [place] Creatinine [Mass/Vol] 1.95 mg/dL High 0.52-1.25 [facility] Comment on above: Performed By: #### B MP3, PHOS3, HEMDF ####[employer] [id number] [place], [place] GFR/1.73 sq M.predicted among blacks MDRD (S/P/Bld) [Vol rate/Area] 29.0 mL/min/{1.73_m2} Abnormal >60 [facility] Comment on above: Performed By: #### B ALTON3, PHOFlorin, HEMDF ####[employer] [address] [employer] [address] [place], [place] GFR/1.73 sq M.predicted among non-blacks MDRD (S/P/Bld) [Vol rate/Area] 25.0 mL/min/{1.73_m2} Abnormal >60 [facility] Comment on above: Result Comment: KDIG O guidelines provide the following GFR categories:Stage GFR(ml/min/1.73 m2) TermsG1 >=90 Normal or highG2 60-89 Mildly decreased*G3a 45-59 Mildly to moderately [id number] 30-44 Moderately to severely decreasedG4 15-29 Severely decreasedG5 <15 Kidney failure*Relative to young adult level.In the absence of evidence of kidney damage, neither GFRcategory G1 nor G2 fulfill the criteria for CKD.The CKD-EPI equation is validated in individuals 18 yearsof age and older. Currently the best equation forestimating glomerular filtration rate (GFR) from serumcreatinine in children is the Bedside Ly equation.It is less accurate in patients with extremes of musclemass, restriction of dietary protein, ingestion of creatine,extra-renal metabolism of creatinine, or treatment withmedications that affect renal tubular creatinine secretion. Performed By: #### B MP3, PHOS3, HEMDF ####[employer] [address] [place], [place] Potassium [Moles/Vol] 3.8 mmol/L Normal 3.5-5.1 [facility] Comment on above: Performed By: #### B MP3, PHOS3, HEMDF ####[facility] [address] Sodium [Moles/Vol] 140 mmol/L Normal 135-145 [facility] Comment on above: Performed By: #### B MP3, PHOS3, HEMDF ####[facility] [place] [address] Chloride [Moles/Vol] 102 mmol/L Normal 98-107 [facility] Comment on above: Performed By: #### B MP3, PHOS3, HEMDF ####[facility] [place] [address] Anion gap [Moles/Vol] 7 mmol/L 3 - 13 mmol/L [facility] Calcium [Mass/Vol] 8.9 mg/dL 8.4 - 10. 4 mg/dL [facility] Chloride [Moles/Vol] 102 mmol/L 98 - 10 7 mmol/L [facility] CO2 [Moles/Vol] 30 mmol/L 22 - 30 mmol/L [facility] Creatinine [Mass/Vol] 1.95 mg/dL High 0.52 - 1.25 mg/dL [facility] EGFR IF NonAfrican [place] 25.0 mL/min Abnormal >60 [facility] GFR/1.73 sq M.predicted among blacks MDRD (S/P/Bld) [Vol rate/Area] 29.0 mL/min/{1.73_m2} Abnormal >60 [facility] Glucose [Mass/Vol] 210 mg/dL High 70 - 100 mg/dL [facility] Interpretation and review of laboratory results Abnormal [facility] Potassium [Moles/Vol] 3.8 mmol/L 3.5 - 5.1 mmol/L [facility] Sodium [Moles/Vol] 140 mmol/L 135 - 145 mmol/L [facility] Urea nitrogen (BldV) [Mass/Vol] 16 mg/dL 9 - 20 mg/dL [facility] CBC auto differentialon Absolute Baso # 0.0 10*3/uL 0.0 - 0.2 10*3/uL [facility] Absolute Neut # 2.6 10*3/uL 1.8 - 7.0 10*3/uL [facility] Basophils/100 WBC (Bld) 1.0 % 0.0 - 2.0 % [facility] Eosinophils (Bld) [#/Vol] 0.2 10*3/uL 0.0 - 0.5 10*3/uL [facility] Eosinophils/100 WBC (Bld) 5.0 % 1.0 - 6.0 % [facility] Granulocytes/100 WBC (Bld) 59.9 % 40.0 - 80.0 % [facility] Hematocrit (Bld) [Volume fraction] 25.6 % Low 35.0 - 47.0 % [facility] Hemoglobin.gastrointes tinal spec 1 Ql (Stl) 8.1 g/dL Low 11.7 - 16.0 g/dL [facility] Interpretation and review of laboratory results Abnormal [facility] Lymphocytes (Bld) [#/Vol] 1.0 10*3/uL 1.0 - 4.3 10*3/uL [facility] Lymphocytes/100 WBC (Bld) 23.7 % 20.0 - 40.0 % [facility] MCH (RBC) [Entitic mass] 27.7 pg 26.0 - 34.0 pg [facility] MCHC (RBC) [Mass/Vol] 31.7 % Low 32.0 - 36.0 % [facility] MCV (RBC) [Entitic vol] 87.6 fL 79.0 - 98.0 fL [facility] Monocytes (Bld) [#/Vol] 0.5 10*3/uL 0.0 - 0.8 10*3/uL [facility] Monocytes/100 WBC (Bld) 10.4 % High 2.0 - 10.0 % [facility] Platelet distribution width (Bld) [Ratio] 18.5 % High 11.5 - 14.5 % [facility] Platelet mean volume (Bld) [Entitic vol] 9.8 fL 7.4 - 10.4 fL [facility] Platelets (Bld) [#/Vol] 217 10*3/uL 140 - 440 10*3/uL [facility] RBC (Bld) [#/Vol] 2.92 10*6/uL Low 3.80 - 5.2 0 10*6/uL [facility] WBC (Bld) [#/Vol] 4.4 10*3/uL 3.6 - 10.7 10*3/uL [facility] Glucose,Bedsideon 04-02-2021 Glucose [Mass/Vol] 227 mg/dL High 70-100 [facility] Comment on above: Result Comment: Test performed by glucose meter. Results may be 10%-15% lowerthan serum/plasma values. (CLIA ID [id number]) Performed By: #### B GLU ####[facility] [employer] [id number] [place], [place] Glucose [Mass/Vol] 222 mg/dL High 70-100 [facility] Comment on above: Result Comment: Test performed by glucose meter. Results may be 10%-15% lowerthan serum/plasma values. (CLIA ID [id number]) Performed By: #### B GLU ####[facility] [employer] [id number] [place], [place] Glucose [Mass/Vol] 209 mg/dL High 70-100 [facility] Comment on above: Result Comment: Test performed by glucose meter. Results may be 10%-15% lowerthan serum/plasma values. (CLIA ID [id number]) Performed By: #### B GLU ####[facility] [employer] [address] Glucose [Mass/Vol] 170 mg/dL High 70-100 [facility] Comment on above: Result Comment: Test performed by glucose meter. Results may be 10%-15% lowerthan serum/plasma values. (CLIA ID [id number]) Performed By: #### B GLU ####[facility] [employer] [id number] [place], [place] Hemogram w/ Autodiffon 04-02 Abs Baso Cnt 0.0 10*3/uL Normal 0.0-0.2 [facility] Comment on above: Performed By: #### B MP3, PHOS3, HEMDF ####[facility] [employer] [id number] [place], [place] Abs Neutrophile Cnt 2.6 10*3/uL Normal 1.8-7.0 [facility] Comment on above: Performed By: #### B MP3, PHOS3, HEMDF ####[facility] [employer] [id number] [place], [place] Basophils/100 WBC (Bld) 1.0 % Normal 0.0-2.0 [facility] Comment on above: Performed By: #### B MP3, PHOS3, HEMDF ####[address] [place], [place] Eosinophils (Bld) [#/Vol] 0.2 10*3/uL Normal 0.0-0.5 [facility] Comment on above: Performed By: #### B MP3, PHOS3, HEMDF ####[address] [place], [place] Eosinophils/100 WBC (Bld) 5.0 % Normal 1.0-6.0 [facility] Comment on above: Performed By: #### B MP3, PHOS3, HEMDF ####[address] Erythrocyte distribution width (RBC) [Ratio] 18.5 % High 11.5-14.5 [facility] Comment on above: Performed By: #### B MP3, PHOS3, HEMDF ####[address] Granulocytes/100 WBC (Bld) 59.9 % Normal 40.0-80.0 [facility] Comment on above: Performed By: #### B MP3, PHOS3, HEMDF ####[address] [place], [place] Hematocrit (Bld) [Volume fraction] 25.6 % Low 35.0-47.0 [facility] Comment on above: Performed By: #### B MP3, PHOS3, HEMDF ####[address] [place], [place] Hemoglobin (Bld) [Mass/Vol] 8.1 g/dL Low 11.7-16.0 [facility] Comment on above: Performed By: #### B MP3, PHOS3, HEMDF ####[address] [place], [place] Lymphocytes (Bld) [#/Vol] 1.0 10*3/uL Normal 1.0-4.3 [facility] Comment on above: Performed By: #### B MP3, PHOS3, HEMDF ####[address] Lymphocytes/100 WBC (Bld) 23.7 % Normal 20.0-40.0 [facility] Comment on above: Performed By: #### B MP3, PHOS3, HEMDF ####[address] MCH (RBC) [Entitic mass] 27.7 pg Normal 26.0-34.0 [facility] Comment on above: Performed By: #### B MP3, PHOS3, HEMDF ####[address] [place], [place] MCHC 31.7 % Low 32.0-36.0 [facility] Comment on above: Performed By: #### B MP3, PHOS3, HEMDF ####[address] MCV (RBC) [Entitic vol] 87.6 fL Normal 79.0-98.0 [facility] Comment on above: Performed By: #### B MP3, PHOS3, HEMDF ####[address] Monocytes (Bld) [#/Vol] 0.5 10*3/uL Normal 0.0-0.8 [facility] Comment on above: Performed By: #### B MP3, PHOS3, HEMDF ####[address] Monocytes/100 WBC (Bld) 10.4 % High 2.0-10.0 [facility] Comment on above: Performed By: #### B MP3, PHOS3, HEMDF ####[address] Platelet mean volume (Bld) [Entitic vol] 9.8 fL Normal 7.4-10.4 [facility] Comment on above: Performed By: #### B MP3, PHOS3, HEMDF ####[facility] [place], [place] Platelets (Bld) [#/Vol] 217 10*3/uL Normal 140-440 [facility] Comment on above: Performed By: #### B MP3, PHOS3, HEMDF ####[facility] [place], [place] RBC (Bld) [#/Vol] 2.92 10*6/uL Low 3.80-5.20 [facility] Comment on above: Performed By: #### B MP3, PHOS3, HEMDF ####[address] [place], [place] WBC (Bld) [#/Vol] 4.4 10*3/uL Normal 3.6-10.7 [facility] Comment on above: Performed By: #### B MP3, PHOS3, HEMDF ####[address] [place], [place] No Panel Informationon 04-02 [facility] PO[facility] Glucoseon 04-02-2021 Glucose [Mass/Vol] 227 mg/dL High 70 - 100 mg/dL [facility] Interpretation and review of laboratory results Abnormal [facility] Glucose [Mass/Vol] 222 mg/dL High 70 - 100 mg/dL [facility] [facility] Interpretation and review of laboratory results Abnormal [facility] Glucose [Mass/Vol] 209 mg/dL High 70 - 100 mg/dL [facility] Interpretation and review of laboratory results Abnormal [facility] Glucose [Mass/Vol] 170 mg/dL High 70 - 100 mg/dL [facility] Interpretation and review of laboratory results Abnormal [facility] Phosphoruson 04-02-2021 Phosphate [Mass/Vol] 3.6 mg/dL Normal 2.5-4.5 [facility] Comment on above: Performed By: #### B MP3, PHOS3, HEMDF ####[address] [place], [place] Phosphate [Mass/Vol] 3.6 mg/dL 2.5 - 4 .5 mg/dL [facility] Basic Metabolic Panelon 12-3 Calcium [Mass/Vol] 8.8 mg/dL Normal 8.4-10.4 [facility] Comment on above: Performed By: #### H EMDF, PHOS3, BMP3 ####[facility] [employer] [id number] [place], [place] Anion gap [Moles/Vol] 8 mmol/L Normal 3-13 [facility] Comment on above: Performed By: #### H EMDF, PHOS3, BMP3 ####[facility] [employer] [id number] [place], [place] CO2 [Moles/Vol] 29 mmol/L Normal 22-30 [facility] Comment on above: Performed By: #### H EMDF, PHOS3, BMP3 ####[facility] [employer] [id number] [place], [place] Creatinine [Mass/Vol] 1.72 mg/dL High 0.52-1.25 [facility] Comment on above: Performed By: #### H EMDF, PHOS3, BMP3 ####[facility] [employer] [id number] [place], [place] GFR/1.73 sq M.predicted among blacks MDRD (S/P/Bld) [Vol rate/Area] 33.7 mL/min/{1.73_m2} Abnormal >60 [facility] Comment on above: Performed By: #### H EMDF, PHOS3, BMP3 ####[facility] [employer] [id number] [place], [place] GFR/1.73 sq M.predicted among non-blacks MDRD (S/P/Bld) [Vol rate/Area] 29.1 mL/min/{1.73_m2} Abnormal >60 [facility] Comment on above: Result Comment: KDIG O guidelines provide the following GFR categories:Stage GFR(ml/min/1.73 m2) TermsG1 >=90 Normal or highG2 60-89 Mildly decreased*G3a 45-59 Mildly to moderately [id number] 30-44 Moderately to severely decreasedG4 15-29 Severely decreasedG5 <15 Kidney failure*Relative to young adult level.In the absence of evidence of kidney damage, neither GFRcategory G1 nor G2 fulfill the criteria for CKD.The CKD-EPI equation is validated in individuals 18 yearsof age and older. Currently the best equation forestimating glomerular filtration rate (GFR) from serumcreatinine in children is the Bedside Ly equation.It is less accurate in patients with extremes of musclemass, restriction of dietary protein, ingestion of creatine,extra-renal metabolism of creatinine, or treatment withmedications that affect renal tubular creatinine secretion. Performed By: #### H EMDF, PHOS3, BMP3 ####[address] [place], [place] Glucose [Mass/Vol] 178 mg/dL High 70-100 [facility] Comment on above: Performed By: #### H EMDF, PHOS3, BMP3 ####[address] [place], [place] Urea nitrogen [Mass/Vol] 11 mg/dL Normal 9-20 [facility] Comment on above: Performed By: #### H EMDF, PHOS3, BMP3 ####[address] [place], [place] Chloride [Moles/Vol] 101 mmol/L Normal 98-107 [facility] Comment on above: Performed By: #### H EMDF, PHOS3, BMP3 ####[address] [place], [place] Potassium [Moles/Vol] 4.2 mmol/L Normal 3.5-5.1 [facility] Comment on above: Performed By: #### H EMDF, PHOS3, BMP3 ####[address] [place], [place] Sodium [Moles/Vol] 138 mmol/L Normal 135-145 [facility] Comment on above: Performed By: #### H EMDF, PHOS3, BMP3 ####[address] [place], [place] Anion gap [Moles/Vol] 8 mmol/L 3 - 13 mmol/L [facility] Calcium [Mass/Vol] 8.8 mg/dL 8.4 - 10. 4 mg/dL [facility] Chloride [Moles/Vol] 101 mmol/L 98 - 10 7 mmol/L [facility] CO2 [Moles/Vol] 29 mmol/L 22 - 30 mmol/L [facility] Creatinine [Mass/Vol] 1.72 mg/dL High 0.52 - 1.25 mg/dL [facility] EGFR IF NonAfrican [place] 29.1 mL/min Abnormal >60 [facility] GFR/1.73 sq M.predicted among blacks MDRD (S/P/Bld) [Vol rate/Area] 33.7 mL/min/{1.73_m2} Abnormal >60 [facility] Glucose [Mass/Vol] 178 mg/dL High 70 - 100 mg/dL [facility] Interpretation and review of laboratory results Abnormal [facility] Potassium [Moles/Vol] 4.2 mmol/L 3.5 - 5.1 mmol/L [facility] Sodium [Moles/Vol] 138 mmol/L 135 - 145 mmol/L [facility] Urea nitrogen (BldV) [Mass/Vol] 11 mg/dL 9 - 20 mg/dL [facility] CBC auto differentialon 12-3 Absolute Baso # 0.0 10*3/uL 0.0 - 0.2 10*3/uL [facility] Absolute Neut # 2.8 10*3/uL 1.8 - 7.0 10*3/uL [facility] Basophils/100 WBC (Bld) 0.8 % 0.0 - 2.0 % [facility] Eosinophils (Bld) [#/Vol] 0.2 10*3/uL 0.0 - 0.5 10*3/uL [facility] Eosinophils/100 WBC (Bld) 4.2 % 1.0 - 6.0 % [facility] Granulocytes/100 WBC (Bld) 62.1 % 40.0 - 80.0 % [facility] Hematocrit (Bld) [Volume fraction] 26.5 % Low 35.0 - 47.0 % [facility] Hemoglobin.gastrointes tinal spec 1 Ql (Stl) 8.2 g/dL Low 11.7 - 16.0 g/dL [facility] Interpretation and review of laboratory results Abnormal [facility] Lymphocytes (Bld) [#/Vol] 1.1 10*3/uL 1.0 - 4.3 10*3/uL [facility] Lymphocytes/100 WBC (Bld) 23.4 % 20.0 - 40.0 % [facility] MCH (RBC) [Entitic mass] 27.6 pg 26.0 - 34.0 pg [facility] MCHC (RBC) [Mass/Vol] 31.1 % Low 32.0 - 36.0 % [facility] MCV (RBC) [Entitic vol] 88.7 fL 79.0 - 98.0 fL [facility] Monocytes (Bld) [#/Vol] 0.4 10*3/uL 0.0 - 0.8 10*3/uL [facility] Monocytes/100 WBC (Bld) 9.5 % 2.0 - 10.0 % [facility] Platelet distribution width (Bld) [Ratio] 18.7 % High 11.5 - 14.5 % [facility] Platelet mean volume (Bld) [Entitic vol] 9.9 fL 7.4 - 10.4 fL [facility] Platelets (Bld) [#/Vol] 214 10*3/uL 140 - 440 10*3/uL [facility] RBC (Bld) [#/Vol] 2.98 10*6/uL Low 3.80 - 5.2 0 10*6/uL [facility] WBC (Bld) [#/Vol] 4.6 10*3/uL 3.6 - 10.7 10*3/uL [facility] Glucose [Mass/Vol] 226 mg/dL High 70-100 [facility] Comment on above: Result Comment: Test performed by glucose meter. Results may be 10%-15% lowerthan serum/plasma values. (CLIA ID [id number]) Performed By: #### B GLU ####[id number] [place] [address] Glucose [Mass/Vol] 203 mg/dL High 70-100 [facility] Comment on above: Result Comment: Test performed by glucose meter. Results may be 10%-15% lowerthan serum/plasma values. (CLIA ID [id number]) Performed By: #### B GLU ####[id number] [place] [address] Glucose [Mass/Vol] 189 mg/dL High 70-100 [facility] Comment on above: Result Comment: Test performed by glucose meter. Results may be 10%-15% lowerthan serum/plasma values. (CLIA ID [id number]) Performed By: #### B GLU ####[address] [place] [address] Glucose [Mass/Vol] 172 mg/dL High 70-100 [facility] Comment on above: Result Comment: Test performed by glucose meter. Results may be 10%-15% lowerthan serum/plasma values. (CLIA ID [id number]) Performed By: #### B GLU ####[address] Hemogram w/ Autodiffon 04-01 Abs Baso Cnt 0.0 10*3/uL Normal 0.0-0.2 [facility] Comment on above: Performed By: #### H EMDF, PHOS3, BMP3 ####[facility] [employer] [address] [address] Abs Neutrophile Cnt 2.8 10*3/uL Normal 1.8-7.0 [facility] Comment on above: Performed By: #### H EMDF, PHOS3, BMP3 ####[facility] [employer] [address] [address] Basophils/100 WBC (Bld) 0.8 % Normal 0.0-2.0 [facility] Comment on above: Performed By: #### H EMDF, PHOS3, BMP3 ####[facility] [employer] [address] [address] Eosinophils (Bld) [#/Vol] 0.2 10*3/uL Normal 0.0-0.5 [facility] Comment on above: Performed By: #### H EMDF, PHOS3, BMP3 ####[facility] [employer] [id number] [place] [address] Eosinophils/100 WBC (Bld) 4.2 % Normal 1.0-6.0 [facility] Comment on above: Performed By: #### H EMDF, PHOS3, BMP3 ####[address] [place], [place] Erythrocyte distribution width (RBC) [Ratio] 18.7 % High 11.5-14.5 [facility] Comment on above: Performed By: #### H EMDF, PHOS3, BMP3 ####[address] [place], [place] Granulocytes/100 WBC (Bld) 62.1 % Normal 40.0-80.0 [facility] Comment on above: Performed By: #### H EMDF, PHOS3, BMP3 ####[address] Hematocrit (Bld) [Volume fraction] 26.5 % Low 35.0-47.0 [facility] Comment on above: Performed By: #### H EMDF, PHOS3, BMP3 ####[address] Hemoglobin (Bld) [Mass/Vol] 8.2 g/dL Low 11.7-16.0 [facility] Comment on above: Performed By: #### H EMDF, PHOS3, BMP3 ####[address] [place], [place] Lymphocytes (Bld) [#/Vol] 1.1 10*3/uL Normal 1.0-4.3 [facility] Comment on above: Performed By: #### H EMDF, PHOS3, BMP3 ####[address] Lymphocytes/100 WBC (Bld) 23.4 % Normal 20.0-40.0 [facility] Comment on above: Performed By: #### H EMDF, PHOS3, BMP3 ####[address] [place], [place] MCH (RBC) [Entitic mass] 27.6 pg Normal 26.0-34.0 [facility] Comment on above: Performed By: #### H EMDF, PHOS3, BMP3 ####[address] [place], [place] MCHC 31.1 % Low 32.0-36.0 [facility] Comment on above: Performed By: #### H EMDF, PHOS3, BMP3 ####[address] MCV (RBC) [Entitic vol] 88.7 fL Normal 79.0-98.0 [facility] Comment on above: Performed By: #### H EMDF, PHOS3, BMP3 ####[address] Monocytes (Bld) [#/Vol] 0.4 10*3/uL Normal 0.0-0.8 [facility] Comment on above: Performed By: #### H EMDF, PHOS3, BMP3 ####[address] Monocytes/100 WBC (Bld) 9.5 % Normal 2.0-10.0 [facility] Comment on above: Performed By: #### H EMDF, PHOS3, BMP3 ####[address] Platelet mean volume (Bld) [Entitic vol] 9.9 fL Normal 7.4-10.4 [facility] Comment on above: Performed By: #### H EMDF, PHOS3, BMP3 ####[address] Platelets (Bld) [#/Vol] 214 10*3/uL Normal 140-440 [facility] Comment on above: Performed By: #### H EMDF, PHOS3, BMP3 ####[address] RBC (Bld) [#/Vol] 2.98 10*6/uL Low 3.80-5.20 [facility] Comment on above: Performed By: #### H EMDF, PHOS3, BMP3 ####[address] [address] WBC (Bld) [#/Vol] 4.6 10*3/uL Normal 3.6-10.7 [facility] Comment on above: Performed By: #### H EMDF, PHOS3, BMP3 ####[address] [place], [place] No Panel Informationon 04-01 [facility] POCT Glucoseon 04-01-2021 Glucose [Mass/Vol] 226 mg/dL High 70 - 100 mg/dL [facility] Interpretation and review of laboratory results Abnormal [facility] Glucose [Mass/Vol] 189 mg/dL High 70 - 100 mg/dL [facility] Interpretation and review of laboratory results Abnormal [facility] Glucose [Mass/Vol] 172 mg/dL High 70 - 100 mg/dL [facility] Interpretation and review of laboratory results Abnormal [facility] POCT GlucoseOrdered By: Aliya Bowen on 04-01-2021 Glucose [Mass/Vol] 203 mg/dL High 70 - 100 mg/dL [facility] Interpretation and review of laboratory results [facility]-01-2021 Phosphate [Mass/Vol] 3.4 mg/dL Normal 2.5-4.5 [facility] Comment on above: Performed By: #### H EMDF, PHOS3, BMP3 ####[address] [place], [place] Phosphate [Mass/Vol] 3.4 mg/dL 2.5 - 4 .5 mg/dL [facility] Basic Metabolic Panelon 03-04 Calcium [Mass/Vol] 8.8 mg/dL Normal 8.4-10.4 [facility] Comment on above: Performed By: #### P HOS3, BMP3, HEMDF ####[facility] [employer] [id number] [place] [address] Anion gap [Moles/Vol] 8 mmol/L Normal 3-13 [facility] Comment on above: Performed By: #### P HOS3, BMP3, HEMDF ####[address] [place], [place] CO2 [Moles/Vol] 29 mmol/L Normal 22-30 [facility] Comment on above: Performed By: #### P HOS3, BMP3, HEMDF ####[address] [place], [place] Creatinine [Mass/Vol] 2.30 mg/dL High 0.52-1.25 [facility] Comment on above: Performed By: #### P HOS3, BMP3, HEMDF ####[address] [place] [address] GFR/1.73 sq M.predicted among blacks MDRD (S/P/Bld) [Vol rate/Area] 23.7 mL/min/{1.73_m2} Abnormal >60 [facility] Comment on above: Performed By: #### P HOS3, BMP3, HEMDF ####[address] GFR/1.73 sq M.predicted among non-blacks MDRD (S/P/Bld) [Vol rate/Area] 20.5 mL/min/{1.73_m2} Abnormal >60 [facility] Comment on above: Result Comment: KDIG O guidelines provide the following GFR categories:Stage GFR(ml/min/1.73 m2) TermsG1 >=90 Normal or highG2 60-89 Mildly decreased*G3a 45-59 Mildly to moderately [id number] 30-44 Moderately to severely decreasedG4 15-29 Severely decreasedG5 <15 Kidney failure*Relative to young adult level.In the absence of evidence of kidney damage, neither GFRcategory G1 nor G2 fulfill the criteria for CKD.The CKD-EPI equation is validated in individuals 18 yearsof age and older. Currently the best equation forestimating glomerular filtration rate (GFR) from serumcreatinine in children is the Bedside Ly equation.It is less accurate in patients with extremes of musclemass, restriction of dietary protein, ingestion of creatine,extra-renal metabolism of creatinine, or treatment withmedications that affect renal tubular creatinine secretion. Performed By: #### P HOS3, BMP3, HEMDF ####[facility] [address] [place] [address] Glucose [Mass/Vol] 185 mg/dL High 70-100 [facility] Comment on above: Performed By: #### P HOS3 BMP3, HEMDF ####[address] [place] [address] Urea nitrogen [Mass/Vol] 16 mg/dL Normal 9-20 [facility] Comment on above: Performed By: #### P HOS3 BMP3, HEMDF ####[address] [place] [address] Chloride [Moles/Vol] 102 mmol/L Normal 98-107 [facility] Comment on above: Performed By: #### P HOS3 BMP3, HEMDF ####[address] [place] [address] Potassium [Moles/Vol] 4.0 mmol/L Normal 3.5-5.1 [facility] Comment on above: Performed By: #### P HOS3, BMP3, HEMDF ####[address] [address] Sodium [Moles/Vol] 139 mmol/L Normal 135-145 [facility] Comment on above: Performed By: #### P HOS3, BMP3, HEMDF ####[address] [address] Anion gap [Moles/Vol] 8 mmol/L 3 - 13 mmol/L [facility] Calcium [Mass/Vol] 8.8 mg/dL 8.4 - 10. 4 mg/dL [facility] Chloride [Moles/Vol] 102 mmol/L 98 - 10 7 mmol/L [facility] CO2 [Moles/Vol] 29 mmol/L 22 - 30 mmol/L [facility] Creatinine [Mass/Vol] 2.3 mg/dL High 0.52 - 1.25 mg/dL [facility] GFR/1.73 sq M.predicted among blacks MDRD (S/P/Bld) [Vol rate/Area] 23.7 mL/min/{1.73_m2} Abnormal >60 [facility] Glucose [Mass/Vol] 185 mg/dL High 70 - 100 mg/dL [facility] Potassium [Moles/Vol] 4.0 mmol/L 3.5 - 5.1 mmol/L [facility] Sodium [Moles/Vol] 139 mmol/L 135 - 145 mmol/L [facility] Glucose,Bedsideon 03-31-2021 Glucose [Mass/Vol] 178 mg/dL High 70-100 [facility] Comment on above: Result Comment: Test performed by glucose meter. Results may be 10%-15% lowerthan serum/plasma values. (CLIA ID [id number]) Performed By: #### B GLU ####[facility] [employer] [id number] [place] [address] Glucose [Mass/Vol] 198 mg/dL High 70-100 [facility] Comment on above: Result Comment: Test performed by glucose meter. Results may be 10%-15% lowerthan serum/plasma values. (CLIA ID [id number]) Performed By: #### B GLU ####[facility] [employer] [address] [place] [address] Glucose [Mass/Vol] 143 mg/dL High 70-100 [facility] Comment on above: Result Comment: Test performed by glucose meter. Results may be 10%-15% lowerthan serum/plasma values. (CLIA ID [id number]) Performed By: #### B GLU ####[facility] [employer] [address] [place], [place] Glucose [Mass/Vol] 165 mg/dL High 70-100 [facility] Comment on above: Result Comment: Test performed by glucose meter. Results may be 10%-15% lowerthan serum/plasma values. (CLIA ID [id number]) Performed By: #### B GLU ####[facility] [employer] [id number] [place] [address] Hemogram w/ Autodiffon 03-31 Abs Baso Cnt 0.0 10*3/uL Normal 0.0-0.2 [facility] Comment on above: Performed By: #### P HOS3, BMP3, HEMDF ####[facility] [employer] [id number] [place] [address] Abs Neutrophile Cnt 3.0 10*3/uL Normal 1.8-7.0 [facility] Comment on above: Performed By: #### P HOS3, BMP3, HEMDF ####[address] [address] Basophils/100 WBC (Bld) 0.9 % Normal 0.0-2.0 [facility] Comment on above: Performed By: #### P HOS3, BMP3, HEMDF ####[address] Eosinophils (Bld) [#/Vol] 0.2 10*3/uL Normal 0.0-0.5 [facility] Comment on above: Performed By: #### P HOS3, BMP3, HEMDF ####[address] Eosinophils/100 WBC (Bld) 4.1 % Normal 1.0-6.0 [facility] Comment on above: Performed By: #### P HOS3, BMP3, HEMDF ####[address] Erythrocyte distribution width (RBC) [Ratio] 18.3 % High 11.5-14.5 [facility] Comment on above: Performed By: #### P HOS3, BMP3, HEMDF ####[address] [address] Granulocytes/100 WBC (Bld) 63.8 % Normal 40.0-80.0 [facility] Comment on above: Performed By: #### P HOS3, BMP3, HEMDF ####[address] [address] Hematocrit (Bld) [Volume fraction] 25.9 % Low 35.0-47.0 [facility] Comment on above: Performed By: #### P HOS3, BMP3, HEMDF ####[address] [address] Hemoglobin (Bld) [Mass/Vol] 8.2 g/dL Low 11.7-16.0 [facility] Comment on above: Performed By: #### P HOS3, BMP3, HEMDF ####[address] Lymphocytes (Bld) [#/Vol] 1.0 10*3/uL Normal 1.0-4.3 [facility] Comment on above: Performed By: #### P HOS3, BMP3, HEMDF ####[address] Lymphocytes/100 WBC (Bld) 21.4 % Normal 20.0-40.0 [facility] Comment on above: Performed By: #### P HOS3, BMP3, HEMDF ####[address] MCH (RBC) [Entitic mass] 27.8 pg Normal 26.0-34.0 [facility] Comment on above: Performed By: #### P HOS3, BMP3, HEMDF ####[address] MCHC 31.7 % Low 32.0-36.0 [facility] Comment on above: Performed By: #### P HOS3, BMP3, HEMDF ####[address] MCV (RBC) [Entitic vol] 87.6 fL Normal 79.0-98.0 [facility] Comment on above: Performed By: #### P HOS3, BMP3, HEMDF ####[address] Monocytes (Bld) [#/Vol] 0.5 10*3/uL Normal 0.0-0.8 [facility] Comment on above: Performed By: #### P HOS3, BMP3, HEMDF ####[address] Monocytes/100 WBC (Bld) 9.8 % Normal 2.0-10.0 [facility] Comment on above: Performed By: #### P HOS3, BMP3, HEMDF ####[address] [place], [place] Platelet mean volume (Bld) [Entitic vol] 10.0 fL Normal 7.4-10.4 [facility] Comment on above: Performed By: #### P HOS3, BMP3, HEMDF ####[address] [place], [place] Platelets (Bld) [#/Vol] 219 10*3/uL Normal 140-440 [facility] Comment on above: Performed By: #### P HOS3, BMP3, HEMDF ####[address] [place], [place] RBC (Bld) [#/Vol] 2.95 10*6/uL Low 3.80-5.20 [facility] Comment on above: Performed By: #### P HOS3, BMP3, HEMDF ####[address] [place], [place] WBC (Bld) [#/Vol] 4.7 10*3/uL Normal 3.6-10.7 [facility] Comment on above: Performed By: #### P HOS3, BMP3, HEMDF ####[address] POCT Glucoseon 03-31-2021 Glucose [Mass/Vol] 178 mg/dL High 70 - 100 mg/dL [facility] Interpretation and review of laboratory results Abnormal [facility] Glucose [Mass/Vol] 198 mg/dL High 70 - 100 mg/dL [facility] Interpretation and review of laboratory results Abnormal [facility] Glucose [Mass/Vol] 143 mg/dL High 70 - 100 mg/dL [facility] Interpretation and review of laboratory results Abnormal [facility] Glucose [Mass/Vol] 165 mg/dL High 70 - 100 mg/dL [facility] Interpretation and review of laboratory results Abnormal [facility] Phosphoruson 03-31-2021 Phosphate [Mass/Vol] 4.0 mg/dL Normal 2.5-4.5 [facility] Comment on above: Performed By: #### P HOS3, BMP3, HEMDF ####[facility] [place] [address] Phosphate [Mass/Vol] 4.0 mg/dL 2.5 - 4 .5 mg/dL [facility] Basic Metabolic Panelon 12-2 Calcium [Mass/Vol] 8.7 mg/dL Normal 8.4-10.4 [facility] Comment on above: Performed By: #### B MP3, PHOS3, HEMDF ####[address] [place] [address] Glucose [Mass/Vol] 164 mg/dL High 70-100 [facility] Comment on above: Performed By: #### B MP3, PHOS3, HEMDF ####[address] [place] Urea nitrogen [Mass/Vol] 12 mg/dL Normal 9-20 [facility] Comment on above: Performed By: #### B MP3, PHOS3, HEMDF ####[address] [place] [address] Anion gap [Moles/Vol] 9 mmol/L Normal 3-13 [facility] Comment on above: Performed By: #### B MP3, PHOS3, HEMDF ####[address] [place] [address] CO2 [Moles/Vol] 28 mmol/L Normal 22-30 [facility] Comment on above: Performed By: #### B MP3, PHOS3, HEMDF ####[address] [place] [address] Creatinine [Mass/Vol] 2.04 mg/dL High 0.52-1.25 [facility] Comment on above: Performed By: #### B MP3, PHOS3, HEMDF ####[address] [place] [address] GFR/1.73 sq M.predicted among blacks MDRD (S/P/Bld) [Vol rate/Area] 27.4 mL/min/{1.73_m2} Abnormal >60 [facility] Comment on above: Performed By: #### Alvaro DANG3, PHOS3, HEMDF ####[address] [place] [address] GFR/1.73 sq M.predicted among non-blacks MDRD (S/P/Bld) [Vol rate/Area] 23.7 mL/min/{1.73_m2} Abnormal >60 [facility] Comment on above: Result Comment: KDIG O guidelines provide the following GFR categories:Stage GFR(ml/min/1.73 m2) TermsG1 >=90 Normal or highG2 60-89 Mildly decreased*G3a 45-59 Mildly to moderately [id number] 30-44 Moderately to severely decreasedG4 15-29 Severely decreasedG5 <15 Kidney failure*Relative to young adult level.In the absence of evidence of kidney damage, neither GFRcategory G1 nor G2 fulfill the criteria for CKD.The CKD-EPI equation is validated in individuals 18 yearsof age and older. Currently the best equation forestimating glomerular filtration rate (GFR) from serumcreatinine in children is the Bedside Ly equation.It is less accurate in patients with extremes of musclemass, restriction of dietary protein, ingestion of creatine,extra-renal metabolism of creatinine, or treatment withmedications that affect renal tubular creatinine secretion. Performed By: #### Alvaro DANG3, PHOS3, HEMDF ####[address] [place], [place] Potassium [Moles/Vol] 3.9 mmol/L Normal 3.5-5.1 [facility] Comment on above: Performed By: #### Alvaro MP3, PHOS3, HEMDF ####[address] [place] [address] Chloride [Moles/Vol] 102 mmol/L Normal 98-107 [facility] Comment on above: Performed By: #### Alvaro MP3, PHOS3, HEMDF ####[address] [place] [address] Sodium [Moles/Vol] 138 mmol/L Normal 135-145 [facility] Comment on above: Performed By: #### B MP3, PHOS3, HEMDF ####[facility] [id number] [place] [address] Glucose,Bedsideon 03-30-2021 Glucose [Mass/Vol] 222 mg/dL High 70-100 [facility] Comment on above: Result Comment: Test performed by glucose meter. Results may be 10%-15% lowerthan serum/plasma values. (CLIA ID [id number]) Performed By: #### B GLU ####[facility] [employer] [id number] [place] [address] Glucose [Mass/Vol] 175 mg/dL High 70-100 [facility] Comment on above: Result Comment: Test performed by glucose meter. Results may be 10%-15% lowerthan serum/plasma values. (CLIA ID [id number]) Performed By: #### B GLU ####[facility] [employer] [address] [place] [address] Glucose [Mass/Vol] 197 mg/dL High 70-100 [facility] Comment on above: Result Comment: Test performed by glucose meter. Results may be 10%-15% lowerthan serum/plasma values. (CLIA ID [id number]) Performed By: #### B GLU ####[facility] [employer] [id number] [place] [address] Glucose [Mass/Vol] 152 mg/dL High 70-100 [facility] Comment on above: Result Comment: Test performed by glucose meter. Results may be 10%-15% lowerthan serum/plasma values. (CLIA ID [id number]) Performed By: #### B GLU ####[facility] [id number] [place] [address] Hemogram w/ Autodiffon 03-30 Abs Baso Cnt 0.1 10*3/uL Normal 0.0-0.2 [facility] Comment on above: Performed By: #### B MP3, PHOS3, HEMDF ####[facility] [employer] [id number] [place] [address] Abs Neutrophile Cnt 3.8 10*3/uL Normal 1.8-7.0 [facility] Comment on above: Performed By: #### B MP3, PHOS3, HEMDF ####[address] [place], [place] Basophils/100 WBC (Bld) 1.0 % Normal 0.0-2.0 [facility] Comment on above: Performed By: #### B MP3, PHOS3, HEMDF ####[address] Eosinophils (Bld) [#/Vol] 0.2 10*3/uL Normal 0.0-0.5 [facility] Comment on above: Performed By: #### B MP3, PHOS3, HEMDF ####[address] Eosinophils/100 WBC (Bld) 3.7 % Normal 1.0-6.0 [facility] Comment on above: Performed By: #### B MP3, PHOS3, HEMDF ####[address] Erythrocyte distribution width (RBC) [Ratio] 18.3 % High 11.5-14.5 [facility] Comment on above: Performed By: #### B MP3, PHOS3, HEMDF ####[address] Granulocytes/100 WBC (Bld) 67.8 % Normal 40.0-80.0 [facility] Comment on above: Performed By: #### B MP3, PHOS3, HEMDF ####[address] Hematocrit (Bld) [Volume fraction] 26.6 % Low 35.0-47.0 [facility] Comment on above: Performed By: #### B MP3, PHOS3, HEMDF ####[address] Hemoglobin (Bld) [Mass/Vol] 8.4 g/dL Low 11.7-16.0 [facility] Comment on above: Performed By: #### B MP3, PHOS3, HEMDF ####[address] [place], [place] Lymphocytes (Bld) [#/Vol] 1.1 10*3/uL Normal 1.0-4.3 [facility] Comment on above: Performed By: #### B MP3, PHOS3, HEMDF ####[address] [place], [place] Lymphocytes/100 WBC (Bld) 18.9 % Low 20.0-40.0 [facility] Comment on above: Performed By: #### B MP3, PHOS3, HEMDF ####[address] [place], [place] MCH (RBC) [Entitic mass] 28.0 pg Normal 26.0-34.0 [facility] Comment on above: Performed By: #### B MP3, PHOS3, HEMDF ####[address] [place], [place] MCHC 31.6 % Low 32.0-36.0 [facility] Comment on above: Performed By: #### B MP3, PHOS3, HEMDF ####[address] [place], [place] MCV (RBC) [Entitic vol] 88.6 fL Normal 79.0-98.0 [facility] Comment on above: Performed By: #### B MP3, PHOS3, HEMDF ####[address] [place], [place] Monocytes (Bld) [#/Vol] 0.5 10*3/uL Normal 0.0-0.8 [facility] Comment on above: Performed By: #### B MP3, PHOS3, HEMDF ####[address] [place], [place] Monocytes/100 WBC (Bld) 8.6 % Normal 2.0-10.0 [facility] Comment on above: Performed By: #### B MP3, PHOS3, HEMDF ####[address] [place], [place] Platelet mean volume (Bld) [Entitic vol] 9.7 fL Normal 7.4-10.4 [facility] Comment on above: Performed By: #### B MP3, PHOS3, HEMDF ####[facility] [place], [place] Platelets (Bld) [#/Vol] 219 10*3/uL Normal 140-440 [facility] Comment on above: Performed By: #### B MP3, PHOS3, HEMDF ####[address] [place], [place] RBC (Bld) [#/Vol] 3.01 10*6/uL Low 3.80-5.20 [facility] Comment on above: Performed By: #### B MP3, PHOS3, HEMDF ####[address] [place], [place] WBC (Bld) [#/Vol] 5.6 10*3/uL Normal 3.6-10.7 [facility] Comment on above: Performed By: #### B MP3, PHOS3, HEMDF ####[address] [place], [place] Phosphoruson 03-30-2021 Phosphate [Mass/Vol] 3.6 mg/dL Normal 2.5-4.5 [facility] Comment on above: Performed By: #### B MP3, PHOS3, HEMDF ####[address] [place], [place] Basic Metabolic Panelon 03-03 Calcium [Mass/Vol] 8.8 mg/dL Normal 8.4-10.4 [facility] Comment on above: Performed By: #### H EMDF, PHOS3, BMP3 ####[address] [place], [place] Anion gap [Moles/Vol] 7 mmol/L Normal 3-13 [facility] Comment on above: Performed By: #### H EMDF, PHOS3, BMP3 ####[address] [place], [place] CO2 [Moles/Vol] 29 mmol/L Normal 22-30 [facility] Comment on above: Performed By: #### H HUBER PHOS3, BMP3 ####[address] [place], [place] Glucose [Mass/Vol] 185 mg/dL High 70-100 [facility] Comment on above: Performed By: #### H EMDCarmelo, PHOS3, BMP3 ####[address] [place], [place] Urea nitrogen [Mass/Vol] 19 mg/dL Normal 9-20 [facility] Comment on above: Performed By: #### H HUBER PHOS3, BMP3 ####[address] [place], [place] Creatinine [Mass/Vol] 2.78 mg/dL High 0.52-1.25 [facility] Comment on above: Performed By: #### H EMDCarmelo, PHOS3, BMP3 ####[address] [place], [place] GFR/1.73 sq M.predicted among blacks MDRD (S/P/Bld) [Vol rate/Area] 18.9 mL/min/{1.73_m2} Abnormal >60 [facility] Comment on above: Performed By: #### H EMDCarmelo, PHOS3, BMP3 ####[address] GFR/1.73 sq M.predicted among non-blacks MDRD (S/P/Bld) [Vol rate/Area] 16.3 mL/min/{1.73_m2} Abnormal >60 [facility] Comment on above: Result Comment: KDIG O guidelines provide the following GFR categories:Stage GFR(ml/min/1.73 m2) TermsG1 >=90 Normal or highG2 60-89 Mildly decreased*G3a 45-59 Mildly to moderately ylekcjtdnU9l 30-44 Moderately to severely decreasedG4 15-29 Severely decreasedG5 <15 Kidney failure*Relative to young adult level.In the absence of evidence of kidney damage, neither GFRcategory G1 nor G2 fulfill the criteria for CKD.The CKD-EPI equation is validated in individuals 18 yearsof age and older. Currently the best equation forestimating glomerular filtration rate (GFR) from serumcreatinine in children is the Bedside Ly equation.It is less accurate in patients with extremes of musclemass, restriction of dietary protein, ingestion of creatine,extra-renal metabolism of creatinine, or treatment withmedications that affect renal tubular creatinine secretion. Performed By: #### H HUBER PHOFlorin, BMP3 ####[address] [place], [place] Chloride [Moles/Vol] 102 mmol/L Normal 98-107 [facility] Comment on above: Performed By: #### H HERACLIO NGO, BMP3 ####[address] [place], [place] Potassium [Moles/Vol] 4.1 mmol/L Normal 3.5-5.1 [facility] Comment on above: Performed By: #### H HUBER PHOFlorin, BMP3 ####[address] [place], [place] Sodium [Moles/Vol] 138 mmol/L Normal 135-145 [facility] Comment on above: Performed By: #### H HERACLIO NGO, BMP3 ####[address] [place] [address] Glucose,Bedsideon 03-29-2021 Glucose [Mass/Vol] 153 mg/dL [facility] 70-100 [facility] Comment on above: Result Comment: Test performed by glucose meter. Results may be 10%-15% lowerthan serum/plasma values. (CLIA ID [id number]) Performed By: #### B GLU ####[address] [place] [address] Glucose [Mass/Vol] 160 mg/dL [facility] 70-100 [facility] Comment on above: Result Comment: Test performed by glucose meter. Results may be 10%-15% lowerthan serum/plasma values. (CLIA ID [id number]) Performed By: #### B GLU ####[address] Glucose [Mass/Vol] 181 mg/dL High 70-100 [facility] Comment on above: Result Comment: Test performed by glucose meter. Results may be 10%-15% lowerthan serum/plasma values. (CLIA ID [id number]) Performed By: #### B GLU ####[address] [place] [address] Glucose [Mass/Vol] 173 mg/dL High 70-100 [facility] Comment on above: Result Comment: Test performed by glucose meter. Results may be 10%-15% lowerthan serum/plasma values. (CLIA ID [id number]) Performed By: #### B GLU ####[address] Hemogram w/ Autodiffon 03-29 Abs Baso Cnt 0.0 10*3/uL Normal 0.0-0.2 [facility] Comment on above: Performed By: #### H EMDF, PHOS3, BMP3 ####[facility] [employer] [address] Abs Neutrophile Cnt 2.9 10*3/uL Normal 1.8-7.0 [facility] Comment on above: Performed By: #### H EMDF, PHOS3, BMP3 ####[address] Basophils/100 WBC (Bld) 0.8 % Normal 0.0-2.0 [facility] Comment on above: Performed By: #### H EMDF, PHOS3, BMP3 ####[facility] [employer] [address] Eosinophils (Bld) [#/Vol] 0.2 10*3/uL Normal 0.0-0.5 [facility] Comment on above: Performed By: #### H EMDF, PHOS3, BMP3 ####[address] Eosinophils/100 WBC (Bld) 3.9 % Normal 1.0-6.0 [facility] Comment on above: Performed By: #### H EMDF, PHOS3, BMP3 ####[address] Erythrocyte distribution width (RBC) [Ratio] 18.2 % High 11.5-14.5 [facility] Comment on above: Performed By: #### H EMDF, PHOS3, BMP3 ####[address] Granulocytes/100 WBC (Bld) 60.9 % Normal 40.0-80.0 [facility] Comment on above: Performed By: #### H EMDF, PHOS3, BMP3 ####[address] Hematocrit (Bld) [Volume fraction] 26.2 % Low 35.0-47.0 [facility] Comment on above: Performed By: #### H EMDF, PHOS3, BMP3 ####[address] Hemoglobin (Bld) [Mass/Vol] 8.2 g/dL Low 11.7-16.0 [facility] Comment on above: Performed By: #### H EMDF, PHOS3, BMP3 ####[address] Lymphocytes (Bld) [#/Vol] 1.1 10*3/uL Normal 1.0-4.3 [facility] Comment on above: Performed By: #### H EMDF, PHOS3, BMP3 ####[address] Lymphocytes/100 WBC (Bld) 24.1 % Normal 20.0-40.0 [facility] Comment on above: Performed By: #### H EMDF, PHOS3, BMP3 ####[address] MCH (RBC) [Entitic mass] 27.4 pg Normal 26.0-34.0 [facility] Comment on above: Performed By: #### H EMDF, PHOS3, BMP3 ####[address] [place], [place] MCHC 31.3 % Low 32.0-36.0 [facility] Comment on above: Performed By: #### H EMDF, PHOS3, BMP3 ####[address] MCV (RBC) [Entitic vol] 87.6 fL Normal 79.0-98.0 [facility] Comment on above: Performed By: #### H EMDF, PHOS3, BMP3 ####[address] Monocytes (Bld) [#/Vol] 0.5 10*3/uL Normal 0.0-0.8 [facility] Comment on above: Performed By: #### H EMDF, PHOS3, BMP3 ####[address] [place], [place] Monocytes/100 WBC (Bld) 10.3 % High 2.0-10.0 [facility] Comment on above: Performed By: #### H EMDF, PHOS3, BMP3 ####[address] Platelet mean volume (Bld) [Entitic vol] 10.0 fL Normal 7.4-10.4 [facility] Comment on above: Performed By: #### H EMDF, PHOS3, BMP3 ####[address] Platelets (Bld) [#/Vol] 218 10*3/uL Normal 140-440 [facility] Comment on above: Performed By: #### H EMDF, PHOS3, BMP3 ####[address] RBC (Bld) [#/Vol] 2.99 10*6/uL Low 3.80-5.20 [facility] Comment on above: Performed By: #### H EMDF, PHOS3, BMP3 ####[address] [address] WBC (Bld) [#/Vol] 4.7 10*3/uL Normal 3.6-10.7 [facility] Comment on above: Performed By: #### H HUBER PHOS3, BMP3 ####[facility] [place] [address] Phosphoruson 03-29-2021 Phosphate [Mass/Vol] 4.4 mg/dL Normal 2.5-4.5 [facility] Comment on above: Performed By: #### H HUBER, PHOS3, BMP3 ####[facility] [place] [address] Basic Metabolic Panelon 03-03 Anion gap [Moles/Vol] 8 mmol/L Normal 3-13 [facility] Comment on above: Performed By: #### B MP3 ####[address] [facility] [place] [place] Calcium [Mass/Vol] 8.7 mg/dL Normal 8.4-10.4 [facility] Comment on above: Performed By: #### B MP3 ####[address] [facility] [place] CO2 [Moles/Vol] 29 mmol/L Normal 22-30 [facility] Comment on above: Performed By: #### B MP3 ####[facility] [facility] [place] [address] Glucose [Mass/Vol] 164 mg/dL High 70-100 [facility] Comment on above: Performed By: #### B MP3 ####[facility] [facility] [place] [address] Urea nitrogen [Mass/Vol] 16 mg/dL Normal 9-20 [facility] Comment on above: Performed By: #### B MP3 ####[facility] [facility] [place] [place] Creatinine [Mass/Vol] 2.65 mg/dL High 0.52-1.25 [facility] Comment on above: Performed By: #### B MP3 ####[address] [place] [address] GFR/1.73 sq M.predicted among blacks MDRD (S/P/Bld) [Vol rate/Area] 20.0 mL/min/{1.73_m2} Abnormal >60 [facility] Comment on above: Performed By: #### B MP3 ####[address] [place] [address] GFR/1.73 sq M.predicted among non-blacks MDRD (S/P/Bld) [Vol rate/Area] 17.2 mL/min/{1.73_m2} Abnormal >60 [facility] Comment on above: Result Comment: KDIG O guidelines provide the following GFR categories:Stage GFR(ml/min/1.73 m2) TermsG1 >=90 Normal or highG2 60-89 Mildly decreased*G3a 45-59 Mildly to moderately [id number] 30-44 Moderately to severely decreasedG4 15-29 Severely decreasedG5 <15 Kidney failure*Relative to young adult level.In the absence of evidence of kidney damage, neither GFRcategory G1 nor G2 fulfill the criteria for CKD.The CKD-EPI equation is validated in individuals 18 yearsof age and older. Currently the best equation forestimating glomerular filtration rate (GFR) from serumcreatinine in children is the Bedside Ly equation.It is less accurate in patients with extremes of musclemass, restriction of dietary protein, ingestion of creatine,extra-renal metabolism of creatinine, or treatment withmedications that affect renal tubular creatinine secretion. Performed By: #### B MP3 ####[address] [place], [place] Chloride [Moles/Vol] 102 mmol/L Normal 98-107 [facility] Comment on above: Performed By: #### B MP3 ####[address] [place], [place] Potassium [Moles/Vol] 3.7 mmol/L Normal 3.5-5.1 [facility] Comment on above: Performed By: #### B MP3 ####[address] [place], [place] Sodium [Moles/Vol] 139 mmol/L Normal 135-145 [facility] Comment on above: Performed By: #### B MP3 ####[address] [place] [address] Glucose,Bedsideon 03-28-2021 Glucose [Mass/Vol] 214 mg/dL High 70-100 [facility] Comment on above: Result Comment: Test performed by glucose meter. Results may be 10%-15% lowerthan serum/plasma values. (CLIA ID [id number]) Performed By: #### B GLU ####[address] [place] [address] Glucose [Mass/Vol] 191 mg/dL High 70-100 [facility] Comment on above: Result Comment: Test performed by glucose meter. Results may be 10%-15% lowerthan serum/plasma values. (CLIA ID [id number]) Performed By: #### B GLU ####[address] [place], [place] Glucose [Mass/Vol] 180 mg/dL High 70-100 [facility] Comment on above: Result Comment: Test performed by glucose meter. Results may be 10%-15% lowerthan serum/plasma values. (CLIA ID [id number]) Performed By: #### B GLU ####[address] [place], [place] Glucose [Mass/Vol] 158 mg/dL High 70-100 [facility] Comment on above: Result Comment: Test performed by glucose meter. Results may be 10%-15% lowerthan serum/plasma values. (CLIA ID [id number]) Performed By: #### B GLU ####[facility] [employer] [id number] [place], [place] Hemogram w/ Autodiffon 03-28 Abs Baso Cnt 0.0 10*3/uL Normal 0.0-0.2 [facility] Comment on above: Performed By: #### P HOS3, HEMDF ####[address] [place], [place] Abs Neutrophile Cnt 3.9 10*3/uL Normal 1.8-7.0 [facility] Comment on above: Performed By: #### P HOS3, HEMDF ####[address] Basophils/100 WBC (Bld) 0.7 % Normal 0.0-2.0 [facility] Comment on above: Performed By: #### P HOS3, HEMDF ####[address] Eosinophils (Bld) [#/Vol] 0.3 10*3/uL Normal 0.0-0.5 [facility] Comment on above: Performed By: #### P HOS3, HEMDF ####[address] Eosinophils/100 WBC (Bld) 4.9 % Normal 1.0-6.0 [facility] Comment on above: Performed By: #### P HOS3, HEMDF ####[address] Erythrocyte distribution width (RBC) [Ratio] 17.7 % High 11.5-14.5 [facility] Comment on above: Performed By: #### P HOS3, HEMDF ####[address] Granulocytes/100 WBC (Bld) 66.8 % Normal 40.0-80.0 [facility] Comment on above: Performed By: #### P HOS3, HEMDF ####[address] Hematocrit (Bld) [Volume fraction] 26.1 % Low 35.0-47.0 [facility] Comment on above: Performed By: #### P HOS3, HEMDF ####[address] Hemoglobin (Bld) [Mass/Vol] 8.1 g/dL Low 11.7-16.0 [facility] Comment on above: Performed By: #### P HOS3, HEMDF ####[address] Lymphocytes (Bld) [#/Vol] 1.1 10*3/uL Normal 1.0-4.3 [facility] Comment on above: Performed By: #### P HOS3, HEMDF ####[address] Lymphocytes/100 WBC (Bld) 19.0 % Low 20.0-40.0 [facility] Comment on above: Performed By: #### P HOS3, HEMDF ####[address] MCH (RBC) [Entitic mass] 27.6 pg Normal 26.0-34.0 [facility] Comment on above: Performed By: #### P HOS3, HEMDF ####[address] MCHC 31.1 % Low 32.0-36.0 [facility] Comment on above: Performed By: #### P HOS3, HEMDF ####[address] MCV (RBC) [Entitic vol] 88.7 fL Normal 79.0-98.0 [facility] Comment on above: Performed By: #### P HOS3, HEMDF ####[address] Monocytes (Bld) [#/Vol] 0.5 10*3/uL Normal 0.0-0.8 [facility] Comment on above: Performed By: #### P HOS3, HEMDF ####[address] Monocytes/100 WBC (Bld) 8.6 % Normal 2.0-10.0 [facility] Comment on above: Performed By: #### P HOS3, HEMDF ####[address] Platelet mean volume (Bld) [Entitic vol] 10.2 fL Normal 7.4-10.4 [facility] Comment on above: Performed By: #### P HOS3, HEMDF ####[address] [place], [place] Platelets (Bld) [#/Vol] 210 10*3/uL Normal 140-440 [facility] Comment on above: Performed By: #### P HOS3, HEMDF ####[address] [place], [place] RBC (Bld) [#/Vol] 2.94 10*6/uL Low 3.80-5.20 [facility] Comment on above: Performed By: #### P HOS3, HEMDF ####[address] [place], [place] WBC (Bld) [#/Vol] 5.9 10*3/uL Normal 3.6-10.7 [facility] Comment on above: Performed By: #### P HOS3, HEMDF ####[address] [place], [place] Phosphoruson 03-28-2021 Phosphate [Mass/Vol] 3.7 mg/dL Normal 2.5-4.5 [facility] Comment on above: Performed By: #### P HOS3, HEMDF ####[address] [place], [place] Basic Metabolic Panelon 12-2 Anion gap [Moles/Vol] 9 mmol/L Normal 3-13 [facility] Comment on above: Performed By: #### P HOS3, BMP3M, HEMDF ####[address] [place], [place] Calcium [Mass/Vol] 8.7 mg/dL Normal 8.4-10.4 [facility] Comment on above: Performed By: #### P HOS3, BMP3M, HEMDF ####[address] [place], [place] CO2 [Moles/Vol] 27 mmol/L Normal 22-30 [facility] Comment on above: Performed By: #### P HOS3, BMP3M, HEMDF ####[facility] [place] [address] Glucose [Mass/Vol] 158 mg/dL High 70-100 [facility] Comment on above: Performed By: #### P HOS3, BMP3M, HEMDF ####[facility] [employer] [id number] [place] [address] Urea nitrogen [Mass/Vol] 23 mg/dL High 9-20 [facility] Comment on above: Performed By: #### P HOS3, BMP3M, HEMDF ####[facility] [employer] [id number] [place] [address] Creatinine [Mass/Vol] 3.38 mg/dL High 0.52-1.25 [facility] Comment on above: Performed By: #### P HOS3, BMP3M, HEMDF ####[facility] [employer] [id number] [place] [address] GFR/1.73 sq M.predicted among blacks MDRD (S/P/Bld) [Vol rate/Area] 14.9 mL/min/{1.73_m2} Abnormal >60 [facility] Comment on above: Performed By: #### P HOS3, BMP3M, HEMDF ####[facility] [employer] [id number] [place] [address] GFR/1.73 sq M.predicted among non-blacks MDRD (S/P/Bld) [Vol rate/Area] 12.9 mL/min/{1.73_m2} Abnormal >60 [facility] Comment on above: Result Comment: KDIG O guidelines provide the following GFR categories:Stage GFR(ml/min/1.73 m2) TermsG1 >=90 Normal or highG2 60-89 Mildly decreased*G3a 45-59 Mildly to moderately eacxcxcdqH6u 30-44 Moderately to severely decreasedG4 15-29 Severely decreasedG5 <15 Kidney failure*Relative to young adult level.In the absence of evidence of kidney damage, neither GFRcategory G1 nor G2 fulfill the criteria for CKD.The CKD-EPI equation is validated in individuals 18 yearsof age and older. Currently the best equation forestimating glomerular filtration rate (GFR) from serumcreatinine in children is the Bedside Ly equation.It is less accurate in patients with extremes of musclemass, restriction of dietary protein, ingestion of creatine,extra-renal metabolism of creatinine, or treatment withmedications that affect renal tubular creatinine secretion. Performed By: #### P HOS3, BMP3M, HEMDF ####[address] [place] [address] Potassium [Moles/Vol] 3.9 mmol/L Normal 3.5-5.1 [facility] Comment on above: Performed By: #### P HOS3, BMP3M, HEMDF ####[address] [place] [address] Sodium [Moles/Vol] 139 mmol/L Normal 135-145 [facility] Comment on above: Performed By: #### P HOS3, BMP3M, HEMDF ####[address] [facility] [place] [address] Chloride [Moles/Vol] 103 mmol/L Normal 98-107 [facility] Comment on above: Performed By: #### P HOS3, BMP3M, HEMDF ####[address] [place] [address] Glucose,Bedsideon 03-27-2021 Glucose [Mass/Vol] 175 mg/dL [facility] 70-100 [facility] Comment on above: Result Comment: Test performed by glucose meter. Results may be 10%-15% lowerthan serum/plasma values. (CLIA ID [id number]) Performed By: #### B GLU ####[facility] [employer] [id number] [place] [address] Glucose [Mass/Vol] 151 mg/dL [facility] 70-100 [facility] Comment on above: Result Comment: Test performed by glucose meter. Results may be 10%-15% lowerthan serum/plasma values. (CLIA ID [id number]) Performed By: #### B GLU ####[address] [place] [address] Glucose [Mass/Vol] 188 mg/dL High 70-100 [facility] Comment on above: Result Comment: Test performed by glucose meter. Results may be 10%-15% lowerthan serum/plasma values. (CLIA ID [id number]) Performed By: #### B GLU ####[address] [address] Glucose [Mass/Vol] 168 mg/dL High 70-100 [facility] Comment on above: Result Comment: Test performed by glucose meter. Results may be 10%-15% lowerthan serum/plasma values. (CLIA ID [id number]) Performed By: #### B GLU ####[address] Hemogram w/ Autodiffon 03-27 Abs Baso Cnt 0.1 10*3/uL Normal 0.0-0.2 [facility] Comment on above: Performed By: #### P HOS3, BMP3M, HEMDF ####[address] [place], [place] Abs Neutrophile Cnt 3.8 10*3/uL Normal 1.8-7.0 [facility] Comment on above: Performed By: #### P HOS3, BMP3M, HEMDF ####[address] [place], [place] Basophils/100 WBC (Bld) 1.1 % Normal 0.0-2.0 [facility] Comment on above: Performed By: #### P HOS3, BMP3M, HEMDF ####[address] [place], [place] Eosinophils (Bld) [#/Vol] 0.3 10*3/uL Normal 0.0-0.5 [facility] Comment on above: Performed By: #### P HOS3, BMP3M, HEMDF ####[address] [place], [place] Eosinophils/100 WBC (Bld) 5.3 % Normal 1.0-6.0 [facility] Comment on above: Performed By: #### P HOS3, BMP3M, HEMDF ####[address] Erythrocyte distribution width (RBC) [Ratio] 17.7 % High 11.5-14.5 [facility] Comment on above: Performed By: #### P HOS3, BMP3M, HEMDF ####[address] [place], [place] Granulocytes/100 WBC (Bld) 66.6 % Normal 40.0-80.0 [facility] Comment on above: Performed By: #### P HOS3, BMP3M, HEMDF ####[address] Hematocrit (Bld) [Volume fraction] 26.3 % Low 35.0-47.0 [facility] Comment on above: Performed By: #### P HOS3, BMP3M, HEMDF ####[address] Hemoglobin (Bld) [Mass/Vol] 8.2 g/dL Low 11.7-16.0 [facility] Comment on above: Performed By: #### P HOS3, BMP3M, HEMDF ####[address] [place], [place] Lymphocytes (Bld) [#/Vol] 1.0 10*3/uL Normal 1.0-4.3 [facility] Comment on above: Performed By: #### P HOS3, BMP3M, HEMDF ####[address] Lymphocytes/100 WBC (Bld) 18.0 % Low 20.0-40.0 [facility] Comment on above: Performed By: #### P HOS3, BMP3M, HEMDF ####[address] MCH (RBC) [Entitic mass] 27.7 pg Normal 26.0-34.0 [facility] Comment on above: Performed By: #### P HOS3, BMP3M, HEMDF ####[address] MCHC 31.3 % Low 32.0-36.0 [facility] Comment on above: Performed By: #### P HOS3, BMP3M, HEMDF ####[address] [place], [place] MCV (RBC) [Entitic vol] 88.4 fL Normal 79.0-98.0 [facility] Comment on above: Performed By: #### P HOS3, BMP3M, HEMDF ####[address] [place], [place] Monocytes (Bld) [#/Vol] 0.5 10*3/uL Normal 0.0-0.8 [facility] Comment on above: Performed By: #### P HOS3, BMP3M, HEMDF ####[address] Monocytes/100 WBC (Bld) 9.0 % Normal 2.0-10.0 [facility] Comment on above: Performed By: #### P HOS3, BMP3M, HEMDF ####[address] Platelet mean volume (Bld) [Entitic vol] 10.0 fL Normal 7.4-10.4 [facility] Comment on above: Performed By: #### P HOS3, BMP3M, HEMDF ####[address] Platelets (Bld) [#/Vol] 220 10*3/uL Normal 140-440 [facility] Comment on above: Performed By: #### P HOS3, BMP3M, HEMDF ####[address] RBC (Bld) [#/Vol] 2.97 10*6/uL Low 3.80-5.20 [facility] Comment on above: Performed By: #### P HOS3, BMP3M, HEMDF ####[address] WBC (Bld) [#/Vol] 5.8 10*3/uL Normal 3.6-10.7 [facility] Comment on above: Performed By: #### P HOS3, BMP3M, HEMDF ####[facility] [place] [address] Phosphoruson 03-27-2021 Phosphate [Mass/Vol] 4.7 mg/dL High 2.5-4.5 [facility] Comment on above: Performed By: #### P HOS3, BMP3M, HEMDF ####[address] [facility] [place] [address] CR Chest PA/LATon 03-26-2021 CR Chest PA/LAT Normal [facility] Comp Panel with Mg Reflexon 03-26-2021 ALT [Catalytic activity/Vol] 8 U/L Normal 0-34 [facility] Comment on above: Result Comment: The ALT test is performed by an updated assay method.Please note that the reference intervals have beenchanged and are now sex specific. Performed By: #### C MP3M, HEMDF, PHOS3 ####[address] [address] Calcium [Mass/Vol] 8.9 mg/dL Normal 8.4-10.4 [facility] Comment on above: Performed By: #### C MP3M, HEMDF, PHOS3 ####[address] [place] [address] Glucose [Mass/Vol] 176 mg/dL High 70-100 [facility] Comment on above: Performed By: #### C MP3M, HEMDF, PHOS3 ####[address] [place] ALP [Catalytic activity/Vol] 87 U/L Normal 38-126 [facility] Comment on above: Performed By: #### C MP3M, HEMDF, PHOS3 ####[address] [facility] [place] [address] Anion gap [Moles/Vol] 9 mmol/L Normal 3-13 [facility] Comment on above: Performed By: #### C MP3M, HEMDF, PHOS3 ####[address] [place], [place] AST [Catalytic activity/Vol] 26 U/L Normal 15-46 [facility] Comment on above: Performed By: #### C MP3M, HEMDF, PHOS3 ####[facility] [place], [place] Bilirubin [Mass/Vol] 0.4 mg/dL Normal 0.2-1.3 [facility] Comment on above: Performed By: #### C MP3M, HEMDF, PHOS3 ####[address] [place] [address] CO2 [Moles/Vol] 28 mmol/L Normal 22-30 [facility] Comment on above: Performed By: #### C MP3M, HEMDF, PHOS3 ####[address] [place], [place] Creatinine [Mass/Vol] 3.02 mg/dL High 0.52-1.25 [facility] Comment on above: Performed By: #### C MP3M, HEMDF, PHOS3 ####[address] [place] [address] GFR/1.73 sq M.predicted among blacks MDRD (S/P/Bld) [Vol rate/Area] 17.1 mL/min/{1.73_m2} Abnormal >60 [facility] Comment on above: Performed By: #### C MP3M, HEMDF, PHOS3 ####[address] [place] [address] GFR/1.73 sq M.predicted among non-blacks MDRD (S/P/Bld) [Vol rate/Area] 14.7 mL/min/{1.73_m2} Abnormal >60 [facility] Comment on above: Result Comment: KDIG O guidelines provide the following GFR categories:Stage GFR(ml/min/1.73 m2) TermsG1 >=90 Normal or highG2 60-89 Mildly decreased*G3a 45-59 Mildly to moderately [id number] 30-44 Moderately to severely decreasedG4 15-29 Severely decreasedG5 <15 Kidney failure*Relative to young adult level.In the absence of evidence of kidney damage, neither GFRcategory G1 nor G2 fulfill the criteria for CKD.The CKD-EPI equation is validated in individuals 18 yearsof age and older. Currently the best equation forestimating glomerular filtration rate (GFR) from serumcreatinine in children is the Bedside Ly equation.It is less accurate in patients with extremes of musclemass, restriction of dietary protein, ingestion of creatine,extra-renal metabolism of creatinine, or treatment withmedications that affect renal tubular creatinine secretion. Performed By: #### C MP3M, HEMDF, PHOS3 ####[facility] [employer] [address] [place] [address] Protein [Mass/Vol] 6.1 g/dL Low 6.3-8.2 [facility] Comment on above: Performed By: #### C MP3M, HEMDF, PHOS3 ####[address] [place] [address] Urea nitrogen [Mass/Vol] 20 mg/dL Normal 9-20 [facility] Comment on above: Performed By: #### C MP3M, HEMDF, PHOS3 ####[address] [place] [address] Potassium [Moles/Vol] 3.8 mmol/L Normal 3.5-5.1 [facility] Comment on above: Performed By: #### C MP3M, HEMDF, PHOS3 ####[address] [place] [address] Albumin [Mass/Vol] 3.1 g/dL Low 3.5-5.0 [facility] Comment on above: Performed By: #### C MP3M, HEMDF, PHOS3 ####[facility] [employer] [id number] [place] [address] Chloride [Moles/Vol] 102 mmol/L Normal 98-107 [facility] Comment on above: Performed By: #### C MP3M, HEMDF, PHOS3 ####[facility] [employer] [id number] [place] [address] Sodium [Moles/Vol] 139 mmol/L Normal 135-145 [facility] Comment on above: Performed By: #### C MP3M, HEMDF, PHOS3 ####[facility] [employer] [id number] [place] [address] Glucose,Bedsideon 03-26-2021 Glucose [Mass/Vol] 158 mg/dL High 70-100 [facility] Comment on above: Result Comment: Test performed by glucose meter. Results may be 10%-15% lowerthan serum/plasma values. (CLIA ID [id number]) Performed By: #### B GLU ####[facility] [employer] [id number] [place] [address] Glucose [Mass/Vol] 165 mg/dL High 70-100 [facility] Comment on above: Result Comment: Test performed by glucose meter. Results may be 10%-15% lowerthan serum/plasma values. (CLIA ID [id number]) Performed By: #### B GLU ####[facility] [employer] [address] [place] [address] Glucose [Mass/Vol] 184 mg/dL High 70-100 [facility] Comment on above: Result Comment: Test performed by glucose meter. Results may be 10%-15% lowerthan serum/plasma values. (CLIA ID [id number]) Performed By: #### B GLU ####[facility] [employer] [id number] [place], [place] Glucose [Mass/Vol] 162 mg/dL High 70-100 [facility] Comment on above: Result Comment: Test performed by glucose meter. Results may be 10%-15% lowerthan serum/plasma values. (CLIA ID [id number]) Performed By: #### B GLU ####[facility] [employer] [id number] [place] [address] Hemogram w/ Autodiffon 03-26 Abs Baso Cnt 0.0 10*3/uL Normal 0.0-0.2 [facility] Comment on above: Performed By: #### C MP3M, HEMDF, PHOS3 ####[facility] [employer] [address] [place] [address] Abs Neutrophile Cnt 3.5 10*3/uL Normal 1.8-7.0 [facility] Comment on above: Performed By: #### C MP3M, HEMDF, PHOS3 ####[address] [place] [address] Basophils/100 WBC (Bld) 0.6 % Normal 0.0-2.0 [facility] Comment on above: Performed By: #### C MP3M, HEMDF, PHOS3 ####[address] [place], [place] Eosinophils (Bld) [#/Vol] 0.2 10*3/uL Normal 0.0-0.5 [facility] Comment on above: Performed By: #### C MP3M, HEMDF, PHOS3 ####[address] [place], [place] Eosinophils/100 WBC (Bld) 4.4 % Normal 1.0-6.0 [facility] Comment on above: Performed By: #### C MP3M, HEMDF, PHOS3 ####[address] [place], [place] Erythrocyte distribution width (RBC) [Ratio] 17.4 % High 11.5-14.5 [facility] Comment on above: Performed By: #### C MP3M, HEMDF, PHOS3 ####[address] [place] [address] Granulocytes/100 WBC (Bld) 61.7 % Normal 40.0-80.0 [facility] Comment on above: Performed By: #### C MP3M, HEMDF, PHOS3 ####[address] [place] [address] Hematocrit (Bld) [Volume fraction] 26.0 % Low 35.0-47.0 [facility] Comment on above: Performed By: #### C MP3M, HEMDF, PHOS3 ####[address] [place] [address] Hemoglobin (Bld) [Mass/Vol] 8.2 g/dL Low 11.7-16.0 [facility] Comment on above: Performed By: #### C MP3M, HEMDF, PHOS3 ####[address] [place], [place] Lymphocytes (Bld) [#/Vol] 1.2 10*3/uL Normal 1.0-4.3 [facility] Comment on above: Performed By: #### C MP3M, HEMDF, PHOS3 ####[address] Lymphocytes/100 WBC (Bld) 21.2 % Normal 20.0-40.0 [facility] Comment on above: Performed By: #### C MP3M, HEMDF, PHOS3 ####[address] [place], [place] MCH (RBC) [Entitic mass] 27.6 pg Normal 26.0-34.0 [facility] Comment on above: Performed By: #### C MP3M, HEMDF, PHOS3 ####[address] MCHC 31.5 % Low 32.0-36.0 [facility] Comment on above: Performed By: #### C MP3M, HEMDF, PHOS3 ####[address] [place], [place] MCV (RBC) [Entitic vol] 87.6 fL Normal 79.0-98.0 [facility] Comment on above: Performed By: #### C MP3M, HEMDF, PHOS3 ####[address] Monocytes (Bld) [#/Vol] 0.7 10*3/uL Normal 0.0-0.8 [facility] Comment on above: Performed By: #### C MP3M, HEMDF, PHOS3 ####[address] Monocytes/100 WBC (Bld) 12.1 % High 2.0-10.0 [facility] Comment on above: Performed By: #### C MP3M, HEMDF, PHOS3 ####[address] [place], [place] Platelet mean volume (Bld) [Entitic vol] 9.7 fL Normal 7.4-10.4 [facility] Comment on above: Performed By: #### C MP3M, HEMDF, PHOS3 ####[address] [place], [place] Platelets (Bld) [#/Vol] 198 10*3/uL Normal 140-440 [facility] Comment on above: Performed By: #### C MP3M, HEMDF, PHOS3 ####[address] [place], [place] RBC (Bld) [#/Vol] 2.96 10*6/uL Low 3.80-5.20 [facility] Comment on above: Performed By: #### C MP3M, HEMDF, PHOS3 ####[address] [place], [place] WBC (Bld) [#/Vol] 5.6 10*3/uL Normal 3.6-10.7 [facility] Comment on above: Performed By: #### C MP3M, HEMDF, PHOS3 ####[address] [place], [place] Phosphoruson 03-26-2021 Phosphate [Mass/Vol] 4.3 mg/dL Normal 2.5-4.5 [facility] Comment on above: Performed By: #### C MP3M, HEMDF, PHOS3 ####[address] [place], [place] Comp Panel with Mg Reflexon 03-25-2021 ALP [Catalytic activity/Vol] 84 U/L Normal 38-126 [facility] Comment on above: Performed By: #### H EMDF, PHOS3, CMP3M ####[address] [place], [place] ALT [Catalytic activity/Vol] 8 U/L Normal 0-34 [facility] Comment on above: Result Comment: The ALT test is performed by an updated assay method.Please note that the reference intervals have beenchanged and are now sex specific. Performed By: #### H HUBER PHOFlorin CMP3M ####[address] [place], [place] Anion gap [Moles/Vol] 11 mmol/L Normal 3-13 [facility] Comment on above: Performed By: #### H EMDCarmelo PHOS3 CMP3M ####[address] AST [Catalytic activity/Vol] 25 U/L Normal 15-46 [facility] Comment on above: Performed By: #### H HUBER PHOFlorin CMP3M ####[address] Calcium [Mass/Vol] 8.6 mg/dL Normal 8.4-10.4 [facility] Comment on above: Performed By: #### H HUBER PHOS3, CMP3M ####[address] CO2 [Moles/Vol] 26 mmol/L Normal 22-30 [facility] Comment on above: Performed By: #### H HUBER PHOS3, CMP3M ####[address] Glucose [Mass/Vol] 187 mg/dL High 70-100 [facility] Comment on above: Performed By: #### H HUBER PHOS3, CMP3M ####[address] Protein [Mass/Vol] 6.2 g/dL Low 6.3-8.2 [facility] Comment on above: Performed By: #### H EMDCarmelo PHOS3, CMP3M ####[address] Urea nitrogen [Mass/Vol] 16 mg/dL Normal 9-20 [facility] Comment on above: Performed By: #### H EMDCarmelo PHOS3, CMP3M ####[address] [place] [address] Bilirubin [Mass/Vol] 0.5 mg/dL Normal 0.2-1.3 [facility] Comment on above: Performed By: #### H HERACLIO NGO, CMP3M ####[address] [place] [address] Creatinine [Mass/Vol] 2.58 mg/dL High 0.52-1.25 [facility] Comment on above: Performed By: #### H EMDCarmelo PHOFlorin CMP3M ####[address] [place] [address] GFR/1.73 sq M.predicted among blacks MDRD (S/P/Bld) [Vol rate/Area] 20.6 mL/min/{1.73_m2} Abnormal >60 [facility] Comment on above: Performed By: #### H HERACLIO NGO CMP3M ####[address] [address] GFR/1.73 sq M.predicted among non-blacks MDRD (S/P/Bld) [Vol rate/Area] 17.8 mL/min/{1.73_m2} Abnormal >60 [facility] Comment on above: Result Comment: KDIG O guidelines provide the following GFR categories:Stage GFR(ml/min/1.73 m2) TermsG1 >=90 Normal or highG2 60-89 Mildly decreased*G3a 45-59 Mildly to moderately [id number] 30-44 Moderately to severely decreasedG4 15-29 Severely decreasedG5 <15 Kidney failure*Relative to young adult level.In the absence of evidence of kidney damage, neither GFRcategory G1 nor G2 fulfill the criteria for CKD.The CKD-EPI equation is validated in individuals 18 yearsof age and older. Currently the best equation forestimating glomerular filtration rate (GFR) from serumcreatinine in children is the Bedside Ly equation.It is less accurate in patients with extremes of musclemass, restriction of dietary protein, ingestion of creatine,extra-renal metabolism of creatinine, or treatment withmedications that affect renal tubular creatinine secretion. Performed By: #### H EMDF, PHOS3, CMP3M ####[address] [facility] [place] [address] Albumin [Mass/Vol] 3.1 g/dL Low 3.5-5.0 [facility] Comment on above: Performed By: #### H EMDF, PHOS3, CMP3M ####[facility] [place] [address] Chloride [Moles/Vol] 101 mmol/L Normal 98-107 [facility] Comment on above: Performed By: #### H EMDF, PHOS3, CMP3M ####[address] [facility] [place] [address] Potassium [Moles/Vol] 3.8 mmol/L Normal 3.5-5.1 [facility] Comment on above: Performed By: #### H EMDF, PHOS3, CMP3M ####[address] [facility] [place] [address] Sodium [Moles/Vol] 138 mmol/L Normal 135-145 [facility] Comment on above: Performed By: #### H EMDF, PHOS3, CMP3M ####[address] [facility] [place] [address] Glucose,Bedsideon 03-25-2021 Glucose [Mass/Vol] 188 mg/dL High 70-100 [facility] Comment on above: Result Comment: Test performed by glucose meter. Results may be 10%-15% lowerthan serum/plasma values. (CLIA ID [id number]) Performed By: #### B GLU ####[address] [facility] [place] [address] Glucose [Mass/Vol] 158 mg/dL High 70-100 [facility] Comment on above: Result Comment: Test performed by glucose meter. Results may be 10%-15% lowerthan serum/plasma values. (CLIA ID [id number]) Performed By: #### B GLU ####[address] [place] [address] Glucose [Mass/Vol] 210 mg/dL High 70-100 [facility] Comment on above: Result Comment: Test performed by glucose meter. Results may be 10%-15% lowerthan serum/plasma values. (CLIA ID [id number]) Performed By: #### B GLU ####[address] Glucose [Mass/Vol] 180 mg/dL High 70-100 [facility] Comment on above: Result Comment: Test performed by glucose meter. Results may be 10%-15% lowerthan serum/plasma values. (CLIA ID [id number]) Performed By: #### B GLU ####[address] Hemogram w/ Autodiffon 03-25 Abs Baso Cnt 0.0 10*3/uL Normal 0.0-0.2 [facility] Comment on above: Performed By: #### H EMDF PHOS3, CMP3M ####[address] Abs Neutrophile Cnt 3.8 10*3/uL Normal 1.8-7.0 [facility] Comment on above: Performed By: #### H EMDF PHOS3, CMP3M ####[facility] [employer] [address] Basophils/100 WBC (Bld) 0.8 % Normal 0.0-2.0 [facility] Comment on above: Performed By: #### H EMDF PHOS3, CMP3M ####[facility] [employer] [address] Eosinophils (Bld) [#/Vol] 0.2 10*3/uL Normal 0.0-0.5 [facility] Comment on above: Performed By: #### H EMDF PHOS3, CMP3M ####[address] Eosinophils/100 WBC (Bld) 3.6 % Normal 1.0-6.0 [facility] Comment on above: Performed By: #### H EMDF, PHOS3, CMP3M ####[address] Erythrocyte distribution width (RBC) [Ratio] 17.5 % High 11.5-14.5 [facility] Comment on above: Performed By: #### H EMDF, PHOS3, CMP3M ####[address] [place], [place] Granulocytes/100 WBC (Bld) 63.9 % Normal 40.0-80.0 [facility] Comment on above: Performed By: #### H EMDF, PHOS3, CMP3M ####[address] Hematocrit (Bld) [Volume fraction] 27.4 % Low 35.0-47.0 [facility] Comment on above: Performed By: #### H EMDF, PHOS3, CMP3M ####[address] [place], [place] Hemoglobin (Bld) [Mass/Vol] 8.5 g/dL Low 11.7-16.0 [facility] Comment on above: Performed By: #### H EMDF, PHOS3, CMP3M ####[address] [place], [place] Lymphocytes (Bld) [#/Vol] 1.2 10*3/uL Normal 1.0-4.3 [facility] Comment on above: Performed By: #### H EMDF, PHOS3, CMP3M ####[address] [place], [place] Lymphocytes/100 WBC (Bld) 19.9 % Low 20.0-40.0 [facility] Comment on above: Performed By: #### H EMDF, PHOS3, CMP3M ####[address] MCH (RBC) [Entitic mass] 27.5 pg Normal 26.0-34.0 [facility] Comment on above: Performed By: #### H EMDF, PHOS3, CMP3M ####[address] MCHC 31.0 % Low 32.0-36.0 [facility] Comment on above: Performed By: #### H EMDF, PHOS3, CMP3M ####[address] [place], [place] MCV (RBC) [Entitic vol] 88.8 fL Normal 79.0-98.0 [facility] Comment on above: Performed By: #### H EMDF, PHOS3, CMP3M ####[address] [place], [place] Monocytes (Bld) [#/Vol] 0.7 10*3/uL Normal 0.0-0.8 [facility] Comment on above: Performed By: #### H EMDF, PHOS3, CMP3M ####[address] [place], [place] Monocytes/100 WBC (Bld) 11.8 % High 2.0-10.0 [facility] Comment on above: Performed By: #### H EMDF, PHOS3, CMP3M ####[address] [place], [place] Platelet mean volume (Bld) [Entitic vol] 9.8 fL Normal 7.4-10.4 [facility] Comment on above: Performed By: #### H EMDF, PHOS3, CMP3M ####[address] [place], [place] Platelets (Bld) [#/Vol] 200 10*3/uL Normal 140-440 [facility] Comment on above: Performed By: #### H EMDF, PHOS3, CMP3M ####[address] [place], [place] RBC (Bld) [#/Vol] 3.09 10*6/uL Low 3.80-5.20 [facility] Comment on above: Performed By: #### H EMDF, PHOS3, CMP3M ####[address] WBC (Bld) [#/Vol] 5.9 10*3/uL Normal 3.6-10.7 [facility] Comment on above: Performed By: #### H EMDF, PHOS3, CMP3M ####[address] [place], [place] Phosphoruson 03-25-2021 Phosphate [Mass/Vol] 3.8 mg/dL Normal 2.5-4.5 [facility] Comment on above: Performed By: #### H EMDF, PHOS3, CMP3M ####[address] [place], [place] Comp Panel with Mg Reflexon 03-24-2021 ALT [Catalytic activity/Vol] 9 U/L Normal 0-34 [facility] Comment on above: Result Comment: The ALT test is performed by an updated assay method.Please note that the reference intervals have beenchanged and are now sex specific. Performed By: #### C MP3M, PHOS3, HEMDF ####[address] [address] [place], [place] Calcium [Mass/Vol] 8.7 mg/dL Normal 8.4-10.4 [facility] Comment on above: Performed By: #### C MP3M, PHOS3, HEMDF ####[address] [place], [place] ALP [Catalytic activity/Vol] 75 U/L Normal 38-126 [facility] Comment on above: Performed By: #### C MP3M, PHOS3, HEMDF ####[address] [place], [place] Anion gap [Moles/Vol] 9 mmol/L Normal 3-13 [facility] Comment on above: Performed By: #### C MP3M, PHOS3, HEMDF ####[address] [place], [place] AST [Catalytic activity/Vol] 21 U/L Normal 15-46 [facility] Comment on above: Performed By: #### C MP3M, PHOS3, HEMDF ####[address] [place], [place] Bilirubin [Mass/Vol] 0.4 mg/dL Normal 0.2-1.3 [facility] Comment on above: Performed By: #### C MP3M, PHOS3, HEMDF ####[facility] [place], [place] CO2 [Moles/Vol] 27 mmol/L Normal 22-30 [facility] Comment on above: Performed By: #### C MP3M, PHOS3, HEMDF ####[facility] [place], [place] Creatinine [Mass/Vol] 3.12 mg/dL High 0.52-1.25 [facility] Comment on above: Performed By: #### C MP3M, PHOS3, HEMDF ####[address] [place], [place] GFR/1.73 sq M.predicted among blacks MDRD (S/P/Bld) [Vol rate/Area] 16.4 mL/min/{1.73_m2} Abnormal >60 [facility] Comment on above: Performed By: #### C MP3M, PHOS3, HEMDF ####[address] [place], [place] GFR/1.73 sq M.predicted among non-blacks MDRD (S/P/Bld) [Vol rate/Area] 14.2 mL/min/{1.73_m2} Abnormal >60 [facility] Comment on above: Result Comment: KDIG O guidelines provide the following GFR categories:Stage GFR(ml/min/1.73 m2) TermsG1 >=90 Normal or highG2 60-89 Mildly decreased*G3a 45-59 Mildly to moderately silagowrpR7y 30-44 Moderately to severely decreasedG4 15-29 Severely decreasedG5 <15 Kidney failure*Relative to young adult level.In the absence of evidence of kidney damage, neither GFRcategory G1 nor G2 fulfill the criteria for CKD.The CKD-EPI equation is validated in individuals 18 yearsof age and older. Currently the best equation forestimating glomerular filtration rate (GFR) from serumcreatinine in children is the Bedside Ly equation.It is less accurate in patients with extremes of musclemass, restriction of dietary protein, ingestion of creatine,extra-renal metabolism of creatinine, or treatment withmedications that affect renal tubular creatinine secretion. Performed By: #### C ZENIA PHOS3, HEMDF ####[address] [facility] [place] [address] Glucose [Mass/Vol] 212 mg/dL High 70-100 [facility] Comment on above: Performed By: #### C ALTON3Gerald PHOS3, HEMDF ####[address] [place] [address] Protein [Mass/Vol] 5.9 g/dL Low 6.3-8.2 [facility] Comment on above: Performed By: #### C ALTON3Gerald PHOS3, HEMDF ####[address] [place] [address] Urea nitrogen [Mass/Vol] 19 mg/dL Normal 9-20 [facility] Comment on above: Performed By: #### C ALTON3M PHOS3, HEMDF ####[address] [place] [address] Potassium [Moles/Vol] 3.8 mmol/L Normal 3.5-5.1 [facility] Comment on above: Performed By: #### C MP3Gerald PHOS3, HEMDF ####[address] [facility] [address] Sodium [Moles/Vol] 139 mmol/L Normal 135-145 [facility] Comment on above: Performed By: #### C MP3M PHOS3, HEMDF ####[address] [place] [address] Albumin [Mass/Vol] 3.1 g/dL Low 3.5-5.0 [facility] Comment on above: Performed By: #### C MP3M, PHOS3, HEMDF ####[address] [facility] [place] [address] Chloride [Moles/Vol] 102 mmol/L Normal 98-107 [facility] Comment on above: Performed By: #### C MP3Gerald PHOS3, HEMDF ####[facility] [employer] [id number] [place] [address] Glucose,Bedsideon 03-24-2021 Glucose [Mass/Vol] 230 mg/dL High 70-100 [facility] Comment on above: Result Comment: Test performed by glucose meter. Results may be 10%-15% lowerthan serum/plasma values. (CLIA ID [id number]) Performed By: #### B GLU ####[facility] [employer] [id number] [place] [address] Glucose [Mass/Vol] 208 mg/dL High 70-100 [facility] Comment on above: Result Comment: Test performed by glucose meter. Results may be 10%-15% lowerthan serum/plasma values. (CLIA ID [id number]) Performed By: #### B GLU ####[facility] [employer] [address] [place] [address] Glucose [Mass/Vol] 217 mg/dL High 70-100 [facility] Comment on above: Result Comment: Test performed by glucose meter. Results may be 10%-15% lowerthan serum/plasma values. (CLIA ID [id number]) Performed By: #### B GLU ####[facility] [employer] [id number] [place] [address] Glucose [Mass/Vol] 196 mg/dL High 70-100 [facility] Comment on above: Result Comment: Test performed by glucose meter. Results may be 10%-15% lowerthan serum/plasma values. (CLIA ID [id number]) Performed By: #### B GLU ####[facility] [id number] [place] [address] Hemogram w/ Autodiffon 03-24 Abs Baso Cnt 0.0 10*3/uL Normal 0.0-0.2 [facility] Comment on above: Performed By: #### C MP3M, PHOS3, HEMDF ####[facility] [employer] [id number] [place] [address] Abs Neutrophile Cnt 2.6 10*3/uL Normal 1.8-7.0 [facility] Comment on above: Performed By: #### C MP3M, PHOS3, HEMDF ####[address] [place] [address] Basophils/100 WBC (Bld) 0.9 % Normal 0.0-2.0 [facility] Comment on above: Performed By: #### C MP3M, PHOS3, HEMDF ####[address] [place], [place] Eosinophils (Bld) [#/Vol] 0.3 10*3/uL Normal 0.0-0.5 [facility] Comment on above: Performed By: #### C MP3M, PHOS3, HEMDF ####[address] [place], [place] Eosinophils/100 WBC (Bld) 7.4 % High 1.0-6.0 [facility] Comment on above: Performed By: #### C MP3M, PHOS3, HEMDF ####[address] Erythrocyte distribution width (RBC) [Ratio] 17.7 % High 11.5-14.5 [facility] Comment on above: Performed By: #### C MP3M, PHOS3, HEMDF ####[address] Granulocytes/100 WBC (Bld) 56.2 % Normal 40.0-80.0 [facility] Comment on above: Performed By: #### C MP3M, PHOS3, HEMDF ####[address] [place], [place] Hematocrit (Bld) [Volume fraction] 24.4 % Low 35.0-47.0 [facility] Comment on above: Performed By: #### C MP3M, PHOS3, HEMDF ####[address] [place] [address] Hemoglobin (Bld) [Mass/Vol] 7.6 g/dL Low 11.7-16.0 [facility] Comment on above: Performed By: #### C MP3M, PHOS3, HEMDF ####[address] Lymphocytes (Bld) [#/Vol] 1.0 10*3/uL Normal 1.0-4.3 [facility] Comment on above: Performed By: #### C MP3M, PHOS3, HEMDF ####[address] Lymphocytes/100 WBC (Bld) 22.5 % Normal 20.0-40.0 [facility] Comment on above: Performed By: #### C MP3M, PHOS3, HEMDF ####[address] [place], [place] MCH (RBC) [Entitic mass] 27.3 pg Normal 26.0-34.0 [facility] Comment on above: Performed By: #### C MP3M, PHOS3, HEMDF ####[address] MCHC 31.2 % Low 32.0-36.0 [facility] Comment on above: Performed By: #### C MP3M, PHOS3, HEMDF ####[address] [place], [place] MCV (RBC) [Entitic vol] 87.3 fL Normal 79.0-98.0 [facility] Comment on above: Performed By: #### C MP3M, PHOS3, HEMDF ####[address] Monocytes (Bld) [#/Vol] 0.6 10*3/uL Normal 0.0-0.8 [facility] Comment on above: Performed By: #### C MP3M, PHOS3, HEMDF ####[address] [place], [place] Monocytes/100 WBC (Bld) 13.0 % High 2.0-10.0 [facility] Comment on above: Performed By: #### C MP3M, PHOS3, HEMDF ####[address] [place] Platelet mean volume (Bld) [Entitic vol] 10.2 fL Normal 7.4-10.4 [facility] Comment on above: Performed By: #### C MP3M, PHOS3, HEMDF ####[address] [facility] [place] Platelets (Bld) [#/Vol] 171 10*3/uL Normal 140-440 [facility] Comment on above: Performed By: #### C MP3M, PHOS3, HEMDF ####[address] [place], [place] RBC (Bld) [#/Vol] 2.79 10*6/uL Low 3.80-5.20 [facility] Comment on above: Performed By: #### C MP3M, PHOS3, HEMDF ####[address] [place], [place] WBC (Bld) [#/Vol] 4.6 10*3/uL Normal 3.6-10.7 [facility] Comment on above: Performed By: #### C MP3M, PHOS3, HEMDF ####[address] [place] Phosphoruson 03-24-2021 Phosphate [Mass/Vol] 3.9 mg/dL Normal 2.5-4.5 [facility] Comment on above: Performed By: #### C MP3M, PHOS3, HEMDF ####[address] [place] Calcium,Ionizedon 03-23-2021 Ionized Ca,Measured 4.40 mg/dL Normal 4.30-5.20 [facility] Comment on above: Performed By: #### H EMDF, CMP3M, ICA, PHOS3, MG3 ####[address] [facility] [place] pH, Ionized Calcium 7.29 Low 7.31-7.46 [facility] Comment on above: Performed By: #### H EMDF, CMP3M, ICA, PHOS3, MG3 ####[address] [place], [place] Comp Panel with Mg Reflexon 03-23-2021 Calcium [Mass/Vol] 8.6 mg/dL Normal 8.4-10.4 [facility] Comment on above: Performed By: #### H EMDF, CMP3M, ICA, PHOS3, MG3 ####[address] [place], [place] ALP [Catalytic activity/Vol] 66 U/L Normal 38-126 [facility] Comment on above: Performed By: #### H EMDF, CMP3M, ICA, PHOS3, MG3 ####[address] [place], [place] ALT [Catalytic activity/Vol] 9 U/L Normal 0-34 [facility] Comment on above: Result Comment: The ALT test is performed by an updated assay method.Please note that the reference intervals have beenchanged and are now sex specific. Performed By: #### H EMDF, CMP3M, ICA, PHOS3, MG3 ####[address] [place], [place] Anion gap [Moles/Vol] 9 mmol/L Normal 3-13 [facility] Comment on above: Performed By: #### H EMDF, CMP3M, ICA, PHOS3, MG3 ####[address] [place], [place] AST [Catalytic activity/Vol] 23 U/L Normal 15-46 [facility] Comment on above: Performed By: #### H EMDF, CMP3M, ICA, PHOS3, MG3 ####[address] [place], [place] Bilirubin [Mass/Vol] 0.4 mg/dL Normal 0.2-1.3 [facility] Comment on above: Performed By: #### H EMDF, CMP3M, ICA, PHOS3, MG3 ####[address] [place], [place] CO2 [Moles/Vol] 29 mmol/L Normal 22-30 [facility] Comment on above: Performed By: #### H EMDF, CMP3M, ICA, PHOS3, MG3 ####[address] [place], [place] Glucose [Mass/Vol] 154 mg/dL High 70-100 [facility] Comment on above: Performed By: #### H EMDF, CMP3M, ICA, PHOS3, MG3 ####[address] [place], [place] Protein [Mass/Vol] 5.8 g/dL Low 6.3-8.2 [facility] Comment on above: Performed By: #### H EMDF, CMP3M, ICA, PHOS3, MG3 ####[address] [place], [place] Urea nitrogen [Mass/Vol] 16 mg/dL Normal 9-20 [facility] Comment on above: Performed By: #### H EMDF, CMP3M, ICA, PHOS3, MG3 ####[address] [place], [place] Creatinine [Mass/Vol] 2.64 mg/dL High 0.52-1.25 [facility] Comment on above: Performed By: #### H EMDF, CMP3M, ICA, PHOS3, MG3 ####[address] [place], [place] GFR/1.73 sq M.predicted among blacks MDRD (S/P/Bld) [Vol rate/Area] 20.1 mL/min/{1.73_m2} Abnormal >60 [facility] Comment on above: Performed By: #### H EMDF, CMP3M, ICA, PHOS3, MG3 ####[address] [place], [place] GFR/1.73 sq M.predicted among non-blacks MDRD (S/P/Bld) [Vol rate/Area] 17.3 mL/min/{1.73_m2} Abnormal >60 [facility] Comment on above: Result Comment: KDIG O guidelines provide the following GFR categories:Stage GFR(ml/min/1.73 m2) TermsG1 >=90 Normal or highG2 60-89 Mildly decreased*G3a 45-59 Mildly to moderately kipuufybsD1c 30-44 Moderately to severely decreasedG4 15-29 Severely decreasedG5 <15 Kidney failure*Relative to young adult level.In the absence of evidence of kidney damage, neither GFRcategory G1 nor G2 fulfill the criteria for CKD.The CKD-EPI equation is validated in individuals 18 yearsof age and older. Currently the best equation forestimating glomerular filtration rate (GFR) from serumcreatinine in children is the Bedside Ly equation.It is less accurate in patients with extremes of musclemass, restriction of dietary protein, ingestion of creatine,extra-renal metabolism of creatinine, or treatment withmedications that affect renal tubular creatinine secretion. Performed By: #### H EMDF, CMP3M, ICA, PHOS3, MG3 ####[address] [place], [place] Albumin [Mass/Vol] 3.0 g/dL Low 3.5-5.0 [facility] Comment on above: Performed By: #### H EMDF, CMP3M, ICA, PHOS3, MG3 ####[address] [place], [place] Chloride [Moles/Vol] 102 mmol/L Normal 98-107 [facility] Comment on above: Performed By: #### H EMDF, CMP3M, ICA, PHOS3, MG3 ####[address] [place], [place] Potassium [Moles/Vol] 3.5 mmol/L Normal 3.5-5.1 [facility] Comment on above: Performed By: #### H EMDF, CMP3M, ICA, PHOS3, MG3 ####[address] [place], [place] Sodium [Moles/Vol] 139 mmol/L Normal 135-145 [facility] Comment on above: Performed By: #### H EMDF, CMP3M, ICA, PHOS3, MG3 ####[address] [place], [place] Glucose,Bedsideon 03-23-2021 Glucose [Mass/Vol] 195 mg/dL High 70-100 [facility] Comment on above: Result Comment: Test performed by glucose meter. Results may be 10%-15% lowerthan serum/plasma values. (CLIA ID [id number]) Performed By: #### B GLU ####[address] [place], [place] Glucose [Mass/Vol] 205 mg/dL High 70-100 [facility] Comment on above: Result Comment: Test performed by glucose meter. Results may be 10%-15% lowerthan serum/plasma values. (CLIA ID [id number]) Performed By: #### B GLU ####[address] Glucose [Mass/Vol] 155 mg/dL High 70-100 [facility] Comment on above: Result Comment: Test performed by glucose meter. Results may be 10%-15% lowerthan serum/plasma values. (CLIA ID [id number]) Performed By: #### B GLU ####[address] Hemogram w/ Autodiffon 03-23 Abs Baso Cnt 0.0 10*3/uL Normal 0.0-0.2 [facility] Comment on above: Performed By: #### H EMDF, CMP3M, ICA, PHOS3, MG3 ####[address] Abs Neutrophile Cnt 2.4 10*3/uL Normal 1.8-7.0 [facility] Comment on above: Performed By: #### H EMDF, CMP3M, ICA, PHOS3, MG3 ####[address] Basophils/100 WBC (Bld) 0.7 % Normal 0.0-2.0 [facility] Comment on above: Performed By: #### H EMDF, CMP3M, ICA, PHOS3, MG3 ####[address] [place], [place] Eosinophils (Bld) [#/Vol] 0.4 10*3/uL Normal 0.0-0.5 [facility] Comment on above: Performed By: #### H EMDF, CMP3M, ICA, PHOS3, MG3 ####[address] Eosinophils/100 WBC (Bld) 8.2 % High 1.0-6.0 [facility] Comment on above: Performed By: #### H EMDF, CMP3M, ICA, PHOS3, MG3 ####[address] Erythrocyte distribution width (RBC) [Ratio] 17.5 % High 11.5-14.5 [facility] Comment on above: Performed By: #### H EMDF, CMP3M, ICA, PHOS3, MG3 ####[address] Granulocytes/100 WBC (Bld) 55.3 % Normal 40.0-80.0 [facility] Comment on above: Performed By: #### H EMDF, CMP3M, ICA, PHOS3, MG3 ####[address] Hematocrit (Bld) [Volume fraction] 23.7 % Low 35.0-47.0 [facility] Comment on above: Performed By: #### H EMDF, CMP3M, ICA, PHOS3, MG3 ####[address] Hemoglobin (Bld) [Mass/Vol] 7.4 g/dL Low 11.7-16.0 [facility] Comment on above: Performed By: #### H EMDF, CMP3M, ICA, PHOS3, MG3 ####[address] Lymphocytes (Bld) [#/Vol] 1.0 10*3/uL Normal 1.0-4.3 [facility] Comment on above: Performed By: #### H EMDF, CMP3M, ICA, PHOS3, MG3 ####[address] Lymphocytes/100 WBC (Bld) 22.8 % Normal 20.0-40.0 [facility] Comment on above: Performed By: #### H EMDF, CMP3M, ICA, PHOS3, MG3 ####[address] MCH (RBC) [Entitic mass] 27.5 pg Normal 26.0-34.0 [facility] Comment on above: Performed By: #### H EMDF, CMP3M, ICA, PHOS3, MG3 ####[address] [place], [place] MCHC 31.0 % Low 32.0-36.0 [facility] Comment on above: Performed By: #### H EMDF, CMP3M, ICA, PHOS3, MG3 ####[address] MCV (RBC) [Entitic vol] 88.6 fL Normal 79.0-98.0 [facility] Comment on above: Performed By: #### H EMDF, CMP3M, ICA, PHOS3, MG3 ####[address] Monocytes (Bld) [#/Vol] 0.6 10*3/uL Normal 0.0-0.8 [facility] Comment on above: Performed By: #### H EMDF, CMP3M, ICA, PHOS3, MG3 ####[address] Monocytes/100 WBC (Bld) 13.0 % High 2.0-10.0 [facility] Comment on above: Performed By: #### H EMDF, CMP3M, ICA, PHOS3, MG3 ####[address] Platelet mean volume (Bld) [Entitic vol] 10.7 fL High 7.4-10.4 [facility] Comment on above: Performed By: #### H EMDF, CMP3M, ICA, PHOS3, MG3 ####[address] [place], [place] Platelets (Bld) [#/Vol] 162 10*3/uL Normal 140-440 [facility] Comment on above: Performed By: #### H EMDF, CMP3M, ICA, PHOS3, MG3 ####[address] RBC (Bld) [#/Vol] 2.68 10*6/uL Low 3.80-5.20 [facility] Comment on above: Performed By: #### H EMDF, CMP3M, ICA, PHOS3, MG3 ####[address] WBC (Bld) [#/Vol] 4.4 10*3/uL Normal 3.6-10.7 [facility] Comment on above: Performed By: #### H EMDF, CMP3M, ICA, PHOS3, MG3 ####[address] [place] [address] Magnesiumon 03-23-2021 Magnesium [Mass/Vol] 1.9 mg/dL Normal 1.6-2.3 [facility] Comment on above: Performed By: #### H EMDF, CMP3M, ICA, PHOS3, MG3 ####[address] [place] [address] Phosphoruson 03-23-2021 Phosphate [Mass/Vol] 3.5 mg/dL Normal 2.5-4.5 [facility] Comment on above: Performed By: #### H EMDF, CMP3M, ICA, PHOS3, MG3 ####[address] [place] [address] Calcium,Ionizedon 03-22-2021 Ionized Ca,Measured 4.30 mg/dL Normal 4.30-5.20 [facility] Comment on above: Performed By: #### P HOS3, CMP3M, HEMDF, ICA ####[facility] [employer] [id number] [place] pH, Ionized Calcium 7.29 Low 7.31-7.46 [facility] Comment on above: Performed By: #### P HOS3, CMP3M, HEMDF, ICA ####[address] [facility] [place] Comp Panel with Mg Reflexon 03-22-2021 ALP [Catalytic activity/Vol] 67 U/L Normal 38-126 [facility] Comment on above: Performed By: #### P HOS3, CMP3M, HEMDF, ICA ####[address] [place], [place] ALT [Catalytic activity/Vol] 10 U/L Normal 0-34 [facility] Comment on above: Result Comment: The ALT test is performed by an updated assay method.Please note that the reference intervals have beenchanged and are now sex specific. Performed By: #### P HOS3, CMP3M, HEMDF, ICA ####[facility] [employer] [id number] [place] Calcium [Mass/Vol] 8.4 mg/dL Normal 8.4-10.4 [facility] Comment on above: Performed By: #### P HOS3, CMP3M, HEMDF, ICA ####[address] [place], [place] Glucose [Mass/Vol] 153 mg/dL High 70-100 [facility] Comment on above: Performed By: #### P HOS3, CMP3M, HEMDF, ICA ####[address] [place], [place] Urea nitrogen [Mass/Vol] 23 mg/dL High 9-20 [facility] Comment on above: Performed By: #### P HOS3, CMP3M, HEMDF, ICA ####[address] [facility] [place] Anion gap [Moles/Vol] 9 mmol/L Normal 3-13 [facility] Comment on above: Performed By: #### P HOS3, CMP3M, HEMDF, ICA ####[address] [place], [place] AST [Catalytic activity/Vol] 25 U/L Normal 15-46 [facility] Comment on above: Performed By: #### P HOS3, CMP3M, HEMDF, ICA ####[address] [place], [place] Bilirubin [Mass/Vol] 0.4 mg/dL Normal 0.2-1.3 [facility] Comment on above: Performed By: #### P HOS3, CMP3M, HEMDF, ICA ####[address] [place], [place] CO2 [Moles/Vol] 27 mmol/L Normal 22-30 [facility] Comment on above: Performed By: #### P HOS3, CMP3M, HEMDF, ICA ####[address] [place], [place] Creatinine [Mass/Vol] 3.20 mg/dL High 0.52-1.25 [facility] Comment on above: Performed By: #### P HOS3, CMP3M, HEMDF, ICA ####[address] [place], [place] GFR/1.73 sq M.predicted among blacks MDRD (S/P/Bld) [Vol rate/Area] 15.9 mL/min/{1.73_m2} Abnormal >60 [facility] Comment on above: Performed By: #### P HOS3, CMP3M, HEMDF, ICA ####[address] [place] GFR/1.73 sq M.predicted among non-blacks MDRD (S/P/Bld) [Vol rate/Area] 13.7 mL/min/{1.73_m2} Abnormal >60 [facility] Comment on above: Result Comment: KDIG O guidelines provide the following GFR categories:Stage GFR(ml/min/1.73 m2) TermsG1 >=90 Normal or highG2 60-89 Mildly decreased*G3a 45-59 Mildly to moderately [id number] 30-44 Moderately to severely decreasedG4 15-29 Severely decreasedG5 <15 Kidney failure*Relative to young adult level.In the absence of evidence of kidney damage, neither GFRcategory G1 nor G2 fulfill the criteria for CKD.The CKD-EPI equation is validated in individuals 18 yearsof age and older. Currently the best equation forestimating glomerular filtration rate (GFR) from serumcreatinine in children is the Bedside Ly equation.It is less accurate in patients with extremes of musclemass, restriction of dietary protein, ingestion of creatine,extra-renal metabolism of creatinine, or treatment withmedications that affect renal tubular creatinine secretion. Performed By: #### P HOS3, CMP3M, HEMDF, ICA ####[address] [place] [address] Protein [Mass/Vol] 5.7 g/dL Low 6.3-8.2 [facility] Comment on above: Performed By: #### P HOS3, CMP3M, HEMDF, ICA ####[address] [address] Chloride [Moles/Vol] 103 mmol/L Normal 98-107 [facility] Comment on above: Performed By: #### P HOS3, CMP3M, HEMDF, ICA ####[address] [address] Potassium [Moles/Vol] 3.7 mmol/L Normal 3.5-5.1 [facility] Comment on above: Performed By: #### P HOS3, CMP3M, HEMDF, ICA ####[address] [place] [address] Sodium [Moles/Vol] 139 mmol/L Normal 135-145 [facility] Comment on above: Performed By: #### P HOS3, CMP3M, HEMDF, ICA ####[address] [place] [address] Albumin [Mass/Vol] 3.0 g/dL Low 3.5-5.0 [facility] Comment on above: Performed By: #### P HOS3, CMP3M, HEMDF, ICA ####[address] [place] [address] Glucose,Bedsideon 03-22-2021 Glucose [Mass/Vol] 168 mg/dL High 70-100 [facility] Comment on above: Result Comment: Test performed by glucose meter. Results may be 10%-15% lowerthan serum/plasma values. (CLIA ID [id number]) Performed By: #### B GLU ####[address] [place], [place] Glucose [Mass/Vol] 176 mg/dL High 70-100 [facility] Comment on above: Result Comment: Test performed by glucose meter. Results may be 10%-15% lowerthan serum/plasma values. (CLIA ID [id number]) Performed By: #### B GLU ####[address] Glucose [Mass/Vol] 166 mg/dL High 70-100 [facility] Comment on above: Result Comment: Test performed by glucose meter. Results may be 10%-15% lowerthan serum/plasma values. (CLIA ID [id number]) Performed By: #### B GLU ####[address] Hemogram w/ Autodiffon 03-22 Abs Baso Cnt 0.0 10*3/uL Normal 0.0-0.2 [facility] Comment on above: Performed By: #### P HOS3, CMP3M, HEMDF, ICA ####[address] [place], [place] Abs Neutrophile Cnt 2.7 10*3/uL Normal 1.8-7.0 [facility] Comment on above: Performed By: #### P HOS3, CMP3M, HEMDF, ICA ####[address] [place], [place] Basophils/100 WBC (Bld) 0.8 % Normal 0.0-2.0 [facility] Comment on above: Performed By: #### P HOS3, CMP3M, HEMDF, ICA ####[address] Eosinophils (Bld) [#/Vol] 0.4 10*3/uL Normal 0.0-0.5 [facility] Comment on above: Performed By: #### P HOS3, CMP3M, HEMDF, ICA ####[address] [place], [place] Eosinophils/100 WBC (Bld) 8.7 % High 1.0-6.0 [facility] Comment on above: Performed By: #### P HOS3, CMP3M, HEMDF, ICA ####[address] Erythrocyte distribution width (RBC) [Ratio] 17.3 % High 11.5-14.5 [facility] Comment on above: Performed By: #### P HOS3, CMP3M, HEMDF, ICA ####[address] Granulocytes/100 WBC (Bld) 59.3 % Normal 40.0-80.0 [facility] Comment on above: Performed By: #### P HOS3, CMP3M, HEMDF, ICA ####[address] [place], [place] Hematocrit (Bld) [Volume fraction] 23.1 % Low 35.0-47.0 [facility] Comment on above: Performed By: #### P HOS3, CMP3M, HEMDF, ICA ####[address] Hemoglobin (Bld) [Mass/Vol] 7.2 g/dL Low 11.7-16.0 [facility] Comment on above: Performed By: #### P HOS3, CMP3M, HEMDF, ICA ####[address] Lymphocytes (Bld) [#/Vol] 0.9 10*3/uL Low 1.0-4.3 [facility] Comment on above: Performed By: #### P HOS3, CMP3M, HEMDF, ICA ####[address] Lymphocytes/100 WBC (Bld) 18.8 % Low 20.0-40.0 [facility] Comment on above: Performed By: #### P HOS3, CMP3M, HEMDF, ICA ####[address] [place], [place] MCH (RBC) [Entitic mass] 27.3 pg Normal 26.0-34.0 [facility] Comment on above: Performed By: #### P HOS3, CMP3M, HEMDF, ICA ####[address] MCHC 31.1 % Low 32.0-36.0 [facility] Comment on above: Performed By: #### P HOS3, CMP3M, HEMDF, ICA ####[address] MCV (RBC) [Entitic vol] 87.6 fL Normal 79.0-98.0 [facility] Comment on above: Performed By: #### P HOS3, CMP3M, HEMDF, ICA ####[address] [place], [place] Monocytes (Bld) [#/Vol] 0.6 10*3/uL Normal 0.0-0.8 [facility] Comment on above: Performed By: #### P HOS3, CMP3M, HEMDF, ICA ####[address] Monocytes/100 WBC (Bld) 12.4 % High 2.0-10.0 [facility] Comment on above: Performed By: #### P HOS3, CMP3M, HEMDF, ICA ####[address] Platelet mean volume (Bld) [Entitic vol] 10.4 fL Normal 7.4-10.4 [facility] Comment on above: Performed By: #### P HOS3, CMP3M, HEMDF, ICA ####[address] [place], [place] Platelets (Bld) [#/Vol] 154 10*3/uL Normal 140-440 [facility] Comment on above: Performed By: #### P HOS3, CMP3M, HEMDF, ICA ####[address] [place], [place] RBC (Bld) [#/Vol] 2.64 10*6/uL Low 3.80-5.20 [facility] Comment on above: Performed By: #### P HOS3, CMP3M, HEMDF, ICA ####[address] [place], [place] WBC (Bld) [#/Vol] 4.5 10*3/uL Normal 3.6-10.7 [facility] Comment on above: Performed By: #### P HOS3, CMP3M, HEMDF, ICA ####[address] [place], [place] Phosphoruson 03-22-2021 Phosphate [Mass/Vol] 4.2 mg/dL Normal 2.5-4.5 [facility] Comment on above: Performed By: #### P HOS3, CMP3M, HEMDF, ICA ####[address] [address] [address] [place], [place] Arterial Blood Gaseson 03-21 CO2 [Moles/Vol] 29.9 mmol/L High 23.0-27.0 [facility] Comment on above: Performed By: #### A BG, ICA, PHOS3, HEMDF, CMP3M ####[address] [place], [place] HCO3 (Bld) [Moles/Vol] 28.2 mmol/L High 21.0-25.0 [facility] Comment on above: Performed By: #### A BG, ICA, PHOS3, HEMDF, CMP3M ####[address] [place] [address] Hemoglobin (Bld) [Mass/Vol] 9.1 g/dL Normal ScreenOnly [facility] Comment on above: Performed By: #### A BG, ICA, PHOS3, HEMDF, CMP3M ####[address] [place], [place] Oxygen (Bld) [Partial pressure] 155.5 mm[Hg] High 80.0-100.0 [facility] Comment on above: Performed By: #### A BG, ICA, PHOS3, HEMDF, CMP3M ####[address] [place], [place] Oxygen saturation in Blood 99.2 % Normal 95.0-100.0 [facility] Comment on above: Performed By: #### A BG, ICA, PHOS3, HEMDF, CMP3M ####[address] [address] [place], [place] pCO2 55.8 mm[Hg] High 35.0-45.0 [facility] Comment on above: Performed By: #### A BG, ICA, PHOS3, HEMDF, CMP3M ####[address] pH 7.321 Low 7.350-7.450 [facility] Comment on above: Performed By: #### A BG, ICA, PHOS3, HEMDF, CMP3M ####[address] [address] [place], [place] Std Base Excess 1.5 mmol/L Normal -3.0-3.0 [facility] Comment on above: Performed By: #### A BG, ICA, PHOS3, HEMDF, CMP3M ####[address] [place], [place] FIO2 No data Normal [facility] Comment on above: Performed By: #### A BG, ICA, PHOS3, HEMDF, CMP3M ####[address] Calcium,Ionizedon 03-21-2021 Ionized Ca,Measured 4.40 mg/dL Normal 4.30-5.20 [facility] Comment on above: Performed By: #### A BG, ICA, PHOS3, HEMDF, CMP3M ####[address] [place], [place] pH, Ionized Calcium 7.35 Normal 7.31-7.46 [facility] Comment on above: Performed By: #### A BG, ICA, PHOS3, HEMDF, CMP3M ####[address] [place], [place] Comp Panel with Mg Reflexon 03-21-2021 Calcium [Mass/Vol] 8.7 mg/dL Normal 8.4-10.4 [facility] Comment on above: Performed By: #### A BG, ICA, PHOS3, HEMDF, CMP3M ####[address] [place], [place] ALP [Catalytic activity/Vol] 81 U/L Normal 38-126 [facility] Comment on above: Performed By: #### A BG, ICA, PHOS3, HEMDF, CMP3M ####[address] [place], [place] ALT [Catalytic activity/Vol] 13 U/L Normal 0-34 [facility] Comment on above: Result Comment: The ALT test is performed by an updated assay method.Please note that the reference intervals have beenchanged and are now sex specific. Performed By: #### A BG, ICA, PHOS3, HEMDF, CMP3M ####[address] [place], [place] Anion gap [Moles/Vol] 7 mmol/L Normal 3-13 [facility] Comment on above: Performed By: #### A BG, ICA, PHOS3, HEMDF, CMP3M ####[address] [place], [place] AST [Catalytic activity/Vol] 32 U/L Normal 15-46 [facility] Comment on above: Performed By: #### A BG, ICA, PHOS3, HEMDF, CMP3M ####[address] [place], [place] Bilirubin [Mass/Vol] 0.6 mg/dL Normal 0.2-1.3 [facility] Comment on above: Performed By: #### A BG, ICA, PHOS3, HEMDF, CMP3M ####[address] [place], [place] CO2 [Moles/Vol] 26 mmol/L Normal 22-30 [facility] Comment on above: Performed By: #### A BG, ICA, PHOS3, HEMDF, CMP3M ####[address] [place], [place] Creatinine [Mass/Vol] 2.67 mg/dL High 0.52-1.25 [facility] Comment on above: Performed By: #### A BG, ICA, PHOS3, HEMDF, CMP3M ####[address] [place], [place] GFR/1.73 sq M.predicted among blacks MDRD (S/P/Bld) [Vol rate/Area] 19.8 mL/min/{1.73_m2} Abnormal >60 [facility] Comment on above: Performed By: #### A BG, ICA, PHOS3, HEMDF, CMP3M ####[address] GFR/1.73 sq M.predicted among non-blacks MDRD (S/P/Bld) [Vol rate/Area] 17.1 mL/min/{1.73_m2} Abnormal >60 [facility] Comment on above: Result Comment: KDIG O guidelines provide the following GFR categories:Stage GFR(ml/min/1.73 m2) TermsG1 >=90 Normal or highG2 60-89 Mildly decreased*G3a 45-59 Mildly to moderately [id number] 30-44 Moderately to severely decreasedG4 15-29 Severely decreasedG5 <15 Kidney failure*Relative to young adult level.In the absence of evidence of kidney damage, neither GFRcategory G1 nor G2 fulfill the criteria for CKD.The CKD-EPI equation is validated in individuals 18 yearsof age and older. Currently the best equation forestimating glomerular filtration rate (GFR) from serumcreatinine in children is the Bedside Ly equation.It is less accurate in patients with extremes of musclemass, restriction of dietary protein, ingestion of creatine,extra-renal metabolism of creatinine, or treatment withmedications that affect renal tubular creatinine secretion. Performed By: #### A BG, ICA, PHOS3, HEMDF, CMP3M ####[address] [place], [place] Glucose [Mass/Vol] 119 mg/dL High 70-100 [facility] Comment on above: Performed By: #### A BG, ICA, PHOS3, HEMDF, CMP3M ####[address] [place], [place] Protein [Mass/Vol] 6.4 g/dL Normal 6.3-8.2 [facility] Comment on above: Performed By: #### A BG, ICA, PHOS3, HEMDF, CMP3M ####[address] [place], [place] Urea nitrogen [Mass/Vol] 18 mg/dL Normal 9-20 [facility] Comment on above: Performed By: #### A BG, ICA, PHOS3, HEMDF, CMP3M ####[address] [place], [place] Albumin [Mass/Vol] 3.2 g/dL Low 3.5-5.0 [facility] Comment on above: Performed By: #### A BG, ICA, PHOS3, HEMDF, CMP3M ####[address] [place], [place] Potassium [Moles/Vol] 4.0 mmol/L Normal 3.5-5.1 [facility] Comment on above: Performed By: #### A BG, ICA, PHOS3, HEMDF, CMP3M ####[address] [place], [place] Sodium [Moles/Vol] 138 mmol/L Normal 135-145 [facility] Comment on above: Performed By: #### A BG, ICA, PHOS3, HEMDF, CMP3M ####[address] [place] [address] Chloride [Moles/Vol] 104 mmol/L Normal 98-107 [facility] Comment on above: Performed By: #### A BG, ICA, PHOS3, HEMDF, CMP3M ####[address] [place] [address] Glucose,Bedsideon 03-21-2021 Glucose [Mass/Vol] 182 mg/dL High 70-100 [facility] Comment on above: Result Comment: Test performed by glucose meter. Results may be 10%-15% lowerthan serum/plasma values. (CLIA ID [id number]) Performed By: #### B GLU ####[address] [place], [place] Glucose [Mass/Vol] 188 mg/dL High 70-100 [facility] Comment on above: Result Comment: Test performed by glucose meter. Results may be 10%-15% lowerthan serum/plasma values. (CLIA ID [id number]) Performed By: #### B GLU ####[address] [place], [place] Glucose [Mass/Vol] 169 mg/dL High 70-100 [facility] Comment on above: Result Comment: Test performed by glucose meter. Results may be 10%-15% lowerthan serum/plasma values. (CLIA ID [id number]) Performed By: #### B GLU ####[address] [place], [place] Glucose [Mass/Vol] 113 mg/dL High 70-100 [facility] Comment on above: Result Comment: Test performed by glucose meter. Results may be 10%-15% lowerthan serum/plasma values. (CLIA ID [id number]) Performed By: #### B GLU ####[address] [place], [place] Hemogram w/ Autodiffon 03-21 Abs Baso Cnt 0.1 10*3/uL Normal 0.0-0.2 [facility] Comment on above: Performed By: #### A BG, ICA, PHOS3, HEMDF, CMP3M ####[address] [place], [place] Abs Neutrophile Cnt 3.6 10*3/uL Normal 1.8-7.0 [facility] Comment on above: Performed By: #### A BG, ICA, PHOS3, HEMDF, CMP3M ####[address] [place], [place] Basophils/100 WBC (Bld) 0.9 % Normal 0.0-2.0 [facility] Comment on above: Performed By: #### A BG, ICA, PHOS3, HEMDF, CMP3M ####[address] Eosinophils (Bld) [#/Vol] 0.5 10*3/uL Normal 0.0-0.5 [facility] Comment on above: Performed By: #### A BG, ICA, PHOS3, HEMDF, CMP3M ####[address] Eosinophils/100 WBC (Bld) 8.7 % High 1.0-6.0 [facility] Comment on above: Performed By: #### A BG, ICA, PHOS3, HEMDF, CMP3M ####[address] Erythrocyte distribution width (RBC) [Ratio] 17.0 % High 11.5-14.5 [facility] Comment on above: Performed By: #### A BG, ICA, PHOS3, HEMDF, CMP3M ####[address] Granulocytes/100 WBC (Bld) 62.2 % Normal 40.0-80.0 [facility] Comment on above: Performed By: #### A BG, ICA, PHOS3, HEMDF, CMP3M ####[address] Hematocrit (Bld) [Volume fraction] 27.3 % Low 35.0-47.0 [facility] Comment on above: Performed By: #### A BG, ICA, PHOS3, HEMDF, CMP3M ####[address] Hemoglobin (Bld) [Mass/Vol] 8.5 g/dL Low 11.7-16.0 [facility] Comment on above: Performed By: #### A BG, ICA, PHOS3, HEMDF, CMP3M ####[address] Lymphocytes (Bld) [#/Vol] 1.1 10*3/uL Normal 1.0-4.3 [facility] Comment on above: Performed By: #### A BG, ICA, PHOS3, HEMDF, CMP3M ####[address] Lymphocytes/100 WBC (Bld) 18.3 % Low 20.0-40.0 [facility] Comment on above: Performed By: #### A BG, ICA, PHOS3, HEMDF, CMP3M ####[address] MCH (RBC) [Entitic mass] 27.4 pg Normal 26.0-34.0 [facility] Comment on above: Performed By: #### A BG, ICA, PHOS3, HEMDF, CMP3M ####[address] MCHC 31.2 % Low 32.0-36.0 [facility] Comment on above: Performed By: #### A BG, ICA, PHOS3, HEMDF, CMP3M ####[address] MCV (RBC) [Entitic vol] 87.8 fL Normal 79.0-98.0 [facility] Comment on above: Performed By: #### A BG, ICA, PHOS3, HEMDF, CMP3M ####[address] Monocytes (Bld) [#/Vol] 0.6 10*3/uL Normal 0.0-0.8 [facility] Comment on above: Performed By: #### A BG, ICA, PHOS3, HEMDF, CMP3M ####[address] [place], [place] Monocytes/100 WBC (Bld) 9.9 % Normal 2.0-10.0 [facility] Comment on above: Performed By: #### A BG, ICA, PHOS3, HEMDF, CMP3M ####[address] [place], [place] Platelet mean volume (Bld) [Entitic vol] 9.9 fL Normal 7.4-10.4 [facility] Comment on above: Performed By: #### A BG, ICA, PHOS3, HEMDF, CMP3M ####[address] [place], [place] Platelets (Bld) [#/Vol] 176 10*3/uL Normal 140-440 [facility] Comment on above: Performed By: #### A BG, ICA, PHOS3, HEMDF, CMP3M ####[address] [place], [place] RBC (Bld) [#/Vol] 3.11 10*6/uL Low 3.80-5.20 [facility] Comment on above: Performed By: #### A BG, ICA, PHOS3, HEMDF, CMP3M ####[address] [place] WBC (Bld) [#/Vol] 5.9 10*3/uL Normal 3.6-10.7 [facility] Comment on above: Performed By: #### A BG, ICA, PHOS3, HEMDF, CMP3M ####[address] Phosphoruson 03-21-2021 Phosphate [Mass/Vol] 3.9 mg/dL Normal 2.5-4.5 [facility] Comment on above: Performed By: #### A BG, ICA, PHOS3, HEMDF, CMP3M ####[address], [place] XA Special Angiography Proce dureon 03-21-2021 XA Special Angiography Procedure Normal [facility] XA Special Angiography Procedure Normal [facility] Arterial Blood Gaseson 03-20 CO2 [Moles/Vol] 30.5 mmol/L High 23.0-27.0 [facility] Comment on above: Performed By: #### I CA, PHOS3, HEMDF, ABG, CMP3M ####[address] HCO3 (Bld) [Moles/Vol] 29.0 mmol/L High 21.0-25.0 [facility] Comment on above: Performed By: #### I CA, PHOS3, HEMDF, ABG, CMP3M ####[address] [place], [place] Hemoglobin (Bld) [Mass/Vol] 8.9 g/dL Normal ScreenOnly [facility] Comment on above: Performed By: #### I CA, PHOS3, HEMDF, ABG, CMP3M ####[address] Oxygen (Bld) [Partial pressure] 147.6 mm[Hg] High 80.0-100.0 [facility] Comment on above: Performed By: #### I CA, PHOS3, HEMDF, ABG, CMP3M ####[address] Oxygen saturation in Blood 99.3 % Normal 95.0-100.0 [facility] Comment on above: Performed By: #### I CA, PHOS3, HEMDF, ABG, CMP3M ####[address] pCO2 47.9 mm[Hg] High 35.0-45.0 [facility] Comment on above: Performed By: #### I CA, PHOS3, HEMDF, ABG, CMP3M ####[address] pH 7.400 Normal 7.350-7.450 [facility] Comment on above: Performed By: #### I CA, PHOS3, HEMDF, ABG, CMP3M ####[address] [place], [place] Std Base Excess 3.7 mmol/L High -3.0-3.0 [facility] Comment on above: Performed By: #### I CA, PHOS3, HEMDF, ABG, CMP3M ####[address] FIO2 No data Normal [facility] Comment on above: Performed By: #### I CA, PHOS3, HEMDF, ABG, CMP3M ####[address] [place], [place] CR Chest Portableon 03-20-20 21 CR Chest Portable Normal [facility] Calcium,Ionizedon 03-20-2021 Ionized Ca,Measured 4.20 mg/dL Low 4.30-5.20 [facility] Comment on above: Performed By: #### I CA, PHOS3, HEMDF, ABG, CMP3M ####[address] pH, Ionized Calcium 7.42 Normal 7.31-7.46 [facility] Comment on above: Performed By: #### I CA, PHOS3, HEMDF, ABG, CMP3M ####[address] [place], [place] Comp Panel with Mg Reflexon 03-20-2021 ALP [Catalytic activity/Vol] 80 U/L Normal 38-126 [facility] Comment on above: Performed By: #### I CA, PHOS3, HEMDF, ABG, CMP3M ####[address] [place], [place] ALT [Catalytic activity/Vol] 14 U/L Normal 0-34 [facility] Comment on above: Result Comment: The ALT test is performed by an updated assay method.Please note that the reference intervals have beenchanged and are now sex specific. Performed By: #### I CA, PHOS3, HEMDF, ABG, CMP3M ####[address] [place], [place] AST [Catalytic activity/Vol] 32 U/L Normal 15-46 [facility] Comment on above: Performed By: #### I CA, PHOS3, HEMDF, ABG, CMP3M ####[address] [place], [place] Calcium [Mass/Vol] 8.4 mg/dL Normal 8.4-10.4 [facility] Comment on above: Performed By: #### I CA, PHOS3, HEMDF, ABG, CMP3M ####[address] [place], [place] Glucose [Mass/Vol] 135 mg/dL High 70-100 [facility] Comment on above: Performed By: #### I CA, PHOS3, HEMDF, ABG, CMP3M ####[address] [address] [place], [place] Protein [Mass/Vol] 6.2 g/dL Low 6.3-8.2 [facility] Comment on above: Performed By: #### I CA, PHOS3, HEMDF, ABG, CMP3M ####[address] [place], [place] Urea nitrogen [Mass/Vol] 16 mg/dL Normal 9-20 [facility] Comment on above: Performed By: #### I CA, PHOS3, HEMDF, ABG, CMP3M ####[address] [place], [place] Anion gap [Moles/Vol] 6 mmol/L Normal 3-13 [facility] Comment on above: Performed By: #### I CA, PHOS3, HEMDF, ABG, CMP3M ####[address] [place], [place] Bilirubin [Mass/Vol] 0.5 mg/dL Normal 0.2-1.3 [facility] Comment on above: Performed By: #### I CA, PHOS3, HEMDF, ABG, CMP3M ####[facility] [place] [address] CO2 [Moles/Vol] 28 mmol/L Normal 22-30 [facility] Comment on above: Performed By: #### I CA, PHOS3, HEMDF, ABG, CMP3M ####[facility] [place] [address] Creatinine [Mass/Vol] 2.31 mg/dL High 0.52-1.25 [facility] Comment on above: Performed By: #### I CA, PHOS3, HEMDF, ABG, CMP3M ####[address] [place] [address] GFR/1.73 sq M.predicted among blacks MDRD (S/P/Bld) [Vol rate/Area] 23.6 mL/min/{1.73_m2} Abnormal >60 [facility] Comment on above: Performed By: #### I CA, PHOS3, HEMDF, ABG, CMP3M ####[address] [place] [address] GFR/1.73 sq M.predicted among non-blacks MDRD (S/P/Bld) [Vol rate/Area] 20.4 mL/min/{1.73_m2} Abnormal >60 [facility] Comment on above: Result Comment: KDIG O guidelines provide the following GFR categories:Stage GFR(ml/min/1.73 m2) TermsG1 >=90 Normal or highG2 60-89 Mildly decreased*G3a 45-59 Mildly to moderately [id number] 30-44 Moderately to severely decreasedG4 15-29 Severely decreasedG5 <15 Kidney failure*Relative to young adult level.In the absence of evidence of kidney damage, neither GFRcategory G1 nor G2 fulfill the criteria for CKD.The CKD-EPI equation is validated in individuals 18 yearsof age and older. Currently the best equation forestimating glomerular filtration rate (GFR) from serumcreatinine in children is the Bedside Ly equation.It is less accurate in patients with extremes of musclemass, restriction of dietary protein, ingestion of creatine,extra-renal metabolism of creatinine, or treatment withmedications that affect renal tubular creatinine secretion. Performed By: #### I CA, PHOS3, HEMDF, ABG, CMP3M ####[address] [place] [address] Albumin [Mass/Vol] 3.2 g/dL Low 3.5-5.0 [facility] Comment on above: Performed By: #### I CA, PHOS3, HEMDF, ABG, CMP3M ####[address] [place] [address] Chloride [Moles/Vol] 102 mmol/L Normal 98-107 [facility] Comment on above: Performed By: #### I CA, PHOS3, HEMDF, ABG, CMP3M ####[address] [place] [address] Potassium [Moles/Vol] 3.6 mmol/L Normal 3.5-5.1 [facility] Comment on above: Performed By: #### I CA, PHOS3, HEMDF, ABG, CMP3M ####[address] [place] [address] Sodium [Moles/Vol] 136 mmol/L Normal 135-145 [facility] Comment on above: Performed By: #### I CA, PHOS3, HEMDF, ABG, CMP3M ####[address] [place] [address] Glucose,Bedsideon 03-20-2021 Glucose [Mass/Vol] 125 mg/dL High 70-100 [facility] Comment on above: Result Comment: Test performed by glucose meter. Results may be 10%-15% lowerthan serum/plasma values. (CLIA ID [id number]) Performed By: #### B GLU ####[address] [place] [address] Glucose [Mass/Vol] 129 mg/dL High 70-100 [facility] Comment on above: Result Comment: Test performed by glucose meter. Results may be 10%-15% lowerthan serum/plasma values. (CLIA ID [id number]) Performed By: #### B GLU ####[address] [address] [address] [place], [place] Glucose [Mass/Vol] 131 mg/dL High 70-100 [facility] Comment on above: Result Comment: Test performed by glucose meter. Results may be 10%-15% lowerthan serum/plasma values. (CLIA ID [id number]) Performed By: #### B GLU ####[address] Glucose [Mass/Vol] 150 mg/dL High 70-100 [facility] Comment on above: Result Comment: Test performed by glucose meter. Results may be 10%-15% lowerthan serum/plasma values. (CLIA ID [id number]) Performed By: #### B GLU ####[address] [place], [place] Hemogram w/ Autodiffon 03-20 Abs Baso Cnt 0.1 10*3/uL Normal 0.0-0.2 [facility] Comment on above: Performed By: #### I CA, PHOS3, HEMDF, ABG, CMP3M ####[address] Abs Neutrophile Cnt 4.6 10*3/uL Normal 1.8-7.0 [facility] Comment on above: Performed By: #### I CA, PHOS3, HEMDF, ABG, CMP3M ####[address] Basophils/100 WBC (Bld) 1.1 % Normal 0.0-2.0 [facility] Comment on above: Performed By: #### I CA, PHOS3, HEMDF, ABG, CMP3M ####[address] Eosinophils (Bld) [#/Vol] 0.3 10*3/uL Normal 0.0-0.5 [facility] Comment on above: Performed By: #### I CA, PHOS3, HEMDF, ABG, CMP3M ####[address] Eosinophils/100 WBC (Bld) 4.7 % Normal 1.0-6.0 [facility] Comment on above: Performed By: #### I CA, PHOS3, HEMDF, ABG, CMP3M ####[address] [place], [place] Erythrocyte distribution width (RBC) [Ratio] 16.7 % High 11.5-14.5 [facility] Comment on above: Performed By: #### I CA, PHOS3, HEMDF, ABG, CMP3M ####[address] Granulocytes/100 WBC (Bld) 69.0 % Normal 40.0-80.0 [facility] Comment on above: Performed By: #### I CA, PHOS3, HEMDF, ABG, CMP3M ####[address] Hematocrit (Bld) [Volume fraction] 26.4 % Low 35.0-47.0 [facility] Comment on above: Performed By: #### I CA, PHOS3, HEMDF, ABG, CMP3M ####[address] Hemoglobin (Bld) [Mass/Vol] 8.4 g/dL Low 11.7-16.0 [facility] Comment on above: Performed By: #### I CA, PHOS3, HEMDF, ABG, CMP3M ####[address] Lymphocytes (Bld) [#/Vol] 1.2 10*3/uL Normal 1.0-4.3 [facility] Comment on above: Performed By: #### I CA, PHOS3, HEMDF, ABG, CMP3M ####[address] Lymphocytes/100 WBC (Bld) 17.4 % Low 20.0-40.0 [facility] Comment on above: Performed By: #### I CA, PHOS3, HEMDF, ABG, CMP3M ####[address] [place] MCH (RBC) [Entitic mass] 28.0 pg Normal 26.0-34.0 [facility] Comment on above: Performed By: #### I CA, PHOS3, HEMDF, ABG, CMP3M ####[address] [place], [place] MCHC 31.9 % Low 32.0-36.0 [facility] Comment on above: Performed By: #### I CA, PHOS3, HEMDF, ABG, CMP3M ####[address] [place], [place] MCV (RBC) [Entitic vol] 87.7 fL Normal 79.0-98.0 [facility] Comment on above: Performed By: #### I CA, PHOS3, HEMDF, ABG, CMP3M ####[address] [place], [place] Monocytes (Bld) [#/Vol] 0.5 10*3/uL Normal 0.0-0.8 [facility] Comment on above: Performed By: #### I CA, PHOS3, HEMDF, ABG, CMP3M ####[address] [place], [place] Monocytes/100 WBC (Bld) 7.8 % Normal 2.0-10.0 [facility] Comment on above: Performed By: #### I CA, PHOS3, HEMDF, ABG, CMP3M ####[id number] [place], [place] Platelet mean volume (Bld) [Entitic vol] 9.6 fL Normal 7.4-10.4 [facility] Comment on above: Performed By: #### I CA, PHOS3, HEMDF, ABG, CMP3M ####[address] [place], [place] Platelets (Bld) [#/Vol] 166 10*3/uL Normal 140-440 [facility] Comment on above: Performed By: #### I CA, PHOS3, HEMDF, ABG, CMP3M ####[address] [place], [place] RBC (Bld) [#/Vol] 3.01 10*6/uL Low 3.80-5.20 [facility] Comment on above: Performed By: #### I CA, PHOS3, HEMDF, ABG, CMP3M ####[address] [place], [place] WBC (Bld) [#/Vol] 6.6 10*3/uL Normal 3.6-10.7 [facility] Comment on above: Performed By: #### I CA, PHOS3, HEMDF, ABG, CMP3M ####[address] [id number] [place], [place] Phosphoruson 03-20-2021 Phosphate [Mass/Vol] 3.2 mg/dL Normal 2.5-4.5 [facility] Comment on above: Performed By: #### I CA, PHOS3, HEMDF, ABG, CMP3M ####[address] [place], [place] Arterial Blood Gaseson 03-19 CO2 [Moles/Vol] 28.6 mmol/L High 23.0-27.0 [facility] Comment on above: Performed By: #### A BG, MG3, CMP3M, ICA, PHOS3, HEMDF ####[address] [place], [place] HCO3 (Bld) [Moles/Vol] 27.3 mmol/L High 21.0-25.0 [facility] Comment on above: Performed By: #### A BG, MG3, CMP3M, ICA, PHOS3, HEMDF ####[address] [place], [place] Hemoglobin (Bld) [Mass/Vol] 8.5 g/dL Normal ScreenOnly [facility] Comment on above: Performed By: #### A BG, MG3, CMP3M, ICA, PHOS3, HEMDF ####[address] Oxygen (Bld) [Partial pressure] 97.0 mm[Hg] Normal 80.0-100.0 [facility] Comment on above: Performed By: #### A BG, MG3, CMP3M, ICA, PHOS3, HEMDF ####[address] Oxygen saturation in Blood 97.7 % Normal 95.0-100.0 [facility] Comment on above: Performed By: #### A BG, MG3, CMP3M, ICA, PHOS3, HEMDF ####[address] pCO2 41.0 mm[Hg] Normal 35.0-45.0 [facility] Comment on above: Performed By: #### A BG, MG3, CMP3M, ICA, PHOS3, HEMDF ####[address] pH 7.442 Normal 7.350-7.450 [facility] Comment on above: Performed By: #### A BG, MG3, CMP3M, ICA, PHOS3, HEMDF ####[address] Std Base Excess 3.0 mmol/L Normal -3.0-3.0 [facility] Comment on above: Performed By: #### A BG, MG3, CMP3M, ICA, PHOS3, HEMDF ####[address] FIO2 No data Normal [facility] Comment on above: Performed By: #### A BG, MG3, CMP3M, ICA, PHOS3, HEMDF ####[address] CR Chest Portableon 03-19-20 CR Chest Portable Normal [facility] Calcium,Ionizedon 03-19-2021 pH, Ionized Calcium 7.48 High 7.31-7.46 [facility] Comment on above: Performed By: #### A BG, MG3, CMP3M, ICA, PHOS3, HEMDF ####[address] [place], [place] Ionized Ca,Measured 4.30 mg/dL Normal 4.30-5.20 [facility] Comment on above: Performed By: #### A BG, MG3, CMP3M, ICA, PHOS3, HEMDF ####[address] [place], [place] Comp Panel with Mg Reflexon 03-19-2021 ALP [Catalytic activity/Vol] 73 U/L Normal 38-126 [facility] Comment on above: Performed By: #### A BG, MG3, CMP3M, ICA, PHOS3, HEMDF ####[address] [place], [place] ALT [Catalytic activity/Vol] 12 U/L Normal 0-34 [facility] Comment on above: Result Comment: The ALT test is performed by an updated assay method.Please note that the reference intervals have beenchanged and are now sex specific. Performed By: #### A BG, MG3, CMP3M, ICA, PHOS3, HEMDF ####[address] AST [Catalytic activity/Vol] 34 U/L Normal 15-46 [facility] Comment on above: Performed By: #### A BG, MG3, CMP3M, ICA, PHOS3, HEMDF ####[address] [place], [place] Calcium [Mass/Vol] 8.5 mg/dL Normal 8.4-10.4 [facility] Comment on above: Performed By: #### A BG, MG3, CMP3M, ICA, PHOS3, HEMDF ####[address] [place], [place] Glucose [Mass/Vol] 193 mg/dL High 70-100 [facility] Comment on above: Performed By: #### A BG, MG3, CMP3M, ICA, PHOS3, HEMDF ####[address] [place], [place] Protein [Mass/Vol] 5.8 g/dL Low 6.3-8.2 [facility] Comment on above: Performed By: #### A BG, MG3, CMP3M, ICA, PHOS3, HEMDF ####[address] [place], [place] Urea nitrogen [Mass/Vol] 16 mg/dL Normal 9-20 [facility] Comment on above: Performed By: #### A BG, MG3, CMP3M, ICA, PHOS3, HEMDF ####[address] [place], [place] Anion gap [Moles/Vol] 7 mmol/L Normal 3-13 [facility] Comment on above: Performed By: #### A BG, MG3, CMP3M, ICA, PHOS3, HEMDF ####[address] [place], [place] Bilirubin [Mass/Vol] 0.5 mg/dL Normal 0.2-1.3 [facility] Comment on above: Performed By: #### A BG, MG3, CMP3M, ICA, PHOS3, HEMDF ####[address] [place], [place] CO2 [Moles/Vol] 28 mmol/L Normal 22-30 [facility] Comment on above: Performed By: #### A BG, MG3, CMP3M, ICA, PHOS3, HEMDF ####[address] [place], [place] Creatinine [Mass/Vol] 2.43 mg/dL High 0.52-1.25 [facility] Comment on above: Performed By: #### A BG, MG3, CMP3M, ICA, PHOS3, HEMDF ####[address] [place], [place] GFR/1.73 sq M.predicted among blacks MDRD (S/P/Bld) [Vol rate/Area] 22.2 mL/min/{1.73_m2} Abnormal >60 [facility] Comment on above: Performed By: #### A BG, MG3, CMP3M, ICA, PHOS3, HEMDF ####[facility] [employer] [id number], [place] GFR/1.73 sq M.predicted among non-blacks MDRD (S/P/Bld) [Vol rate/Area] 19.2 mL/min/{1.73_m2} Abnormal >60 [facility] Comment on above: Result Comment: KDIG O guidelines provide the following GFR categories:Stage GFR(ml/min/1.73 m2) TermsG1 >=90 Normal or highG2 60-89 Mildly decreased*G3a 45-59 Mildly to moderately lagtiyliaD0g 30-44 Moderately to severely decreasedG4 15-29 Severely decreasedG5 <15 Kidney failure*Relative to young adult level.In the absence of evidence of kidney damage, neither GFRcategory G1 nor G2 fulfill the criteria for CKD.The CKD-EPI equation is validated in individuals 18 yearsof age and older. Currently the best equation forestimating glomerular filtration rate (GFR) from serumcreatinine in children is the Bedside Ly equation.It is less accurate in patients with extremes of musclemass, restriction of dietary protein, ingestion of creatine,extra-renal metabolism of creatinine, or treatment withmedications that affect renal tubular creatinine secretion. Performed By: #### A BG, MG3, CMP3M, ICA, PHOS3, HEMDF ####[facility] [employer] [id number], [place] Potassium [Moles/Vol] 3.5 mmol/L Normal 3.5-5.1 [facility] Comment on above: Performed By: #### A BG, MG3, CMP3M, ICA, PHOS3, HEMDF ####[facility] [employer] [id number], [place] Sodium [Moles/Vol] 137 mmol/L Normal 135-145 [facility] Comment on above: Performed By: #### A BG, MG3, CMP3M, ICA, PHOS3, HEMDF ####[facility] [employer] [id number] [employer] [place] [address] Albumin [Mass/Vol] 3.0 g/dL Low 3.5-5.0 [facility] Comment on above: Performed By: #### A BG, MG3, CMP3M, ICA, PHOS3, HEMDF ####[address] [place], [place] Chloride [Moles/Vol] 102 mmol/L Normal 98-107 [facility] Comment on above: Performed By: #### A BG, MG3, CMP3M, ICA, PHOS3, HEMDF ####[address] [place], [place] Glucose,Bedsideon 03-19-2021 Glucose [Mass/Vol] 139 mg/dL High 70-100 [facility] Comment on above: Result Comment: Test performed by glucose meter. Results may be 10%-15% lowerthan serum/plasma values. (CLIA ID [id number]) Performed By: #### B GLU ####[address] [place], [place] Glucose [Mass/Vol] 152 mg/dL High 70-100 [facility] Comment on above: Result Comment: Test performed by glucose meter. Results may be 10%-15% lowerthan serum/plasma values. (CLIA ID [id number]) Performed By: #### B GLU ####[facility] [employer] [id number] [place], [place] Glucose [Mass/Vol] 180 mg/dL High 70-100 [facility] Comment on above: Result Comment: Test performed by glucose meter. Results may be 10%-15% lowerthan serum/plasma values. (CLIA ID [id number]) Performed By: #### B GLU ####[facility] [employer] [id number] [place], [place] Glucose [Mass/Vol] 208 mg/dL High 70-100 [facility] Comment on above: Result Comment: Test performed by glucose meter. Results may be 10%-15% lowerthan serum/plasma values. (CLIA ID [id number]) Performed By: #### B GLU ####[facility] [employer] [id number] [place], [place] Hemogram w/ Autodiffon 03-19 Abs Baso Cnt 0.0 10*3/uL Normal 0.0-0.2 [facility] Comment on above: Performed By: #### A BG, MG3, CMP3M, ICA, PHOS3, HEMDF ####[address] [place], [place] Abs Neutrophile Cnt 2.7 10*3/uL Normal 1.8-7.0 [facility] Comment on above: Performed By: #### A BG, MG3, CMP3M, ICA, PHOS3, HEMDF ####[address] Basophils/100 WBC (Bld) 0.8 % Normal 0.0-2.0 [facility] Comment on above: Performed By: #### A BG, MG3, CMP3M, ICA, PHOS3, HEMDF ####[address] Eosinophils (Bld) [#/Vol] 0.2 10*3/uL Normal 0.0-0.5 [facility] Comment on above: Performed By: #### A BG, MG3, CMP3M, ICA, PHOS3, HEMDF ####[address] [place], [place] Eosinophils/100 WBC (Bld) 5.7 % Normal 1.0-6.0 [facility] Comment on above: Performed By: #### A BG, MG3, CMP3M, ICA, PHOS3, HEMDF ####[address] [place], [place] Erythrocyte distribution width (RBC) [Ratio] 17.4 % High 11.5-14.5 [facility] Comment on above: Performed By: #### A BG, MG3, CMP3M, ICA, PHOS3, HEMDF ####[address] [place], [place] Granulocytes/100 WBC (Bld) 63.4 % Normal 40.0-80.0 [facility] Comment on above: Performed By: #### A BG, MG3, CMP3M, ICA, PHOS3, HEMDF ####[address] [place], [place] Hematocrit (Bld) [Volume fraction] 24.1 % Low 35.0-47.0 [facility] Comment on above: Performed By: #### A BG, MG3, CMP3M, ICA, PHOS3, HEMDF ####[address] Hemoglobin (Bld) [Mass/Vol] 7.7 g/dL Low 11.7-16.0 [facility] Comment on above: Performed By: #### A BG, MG3, CMP3M, ICA, PHOS3, HEMDF ####[address] [place], [place] Lymphocytes (Bld) [#/Vol] 0.9 10*3/uL Low 1.0-4.3 [facility] Comment on above: Performed By: #### A BG, MG3, CMP3M, ICA, PHOS3, HEMDF ####[address] [place], [place] Lymphocytes/100 WBC (Bld) 20.5 % Normal 20.0-40.0 [facility] Comment on above: Performed By: #### A BG, MG3, CMP3M, ICA, PHOS3, HEMDF ####[address] [place], [place] MCH (RBC) [Entitic mass] 27.9 pg Normal 26.0-34.0 [facility] Comment on above: Performed By: #### A BG, MG3, CMP3M, ICA, PHOS3, HEMDF ####[address] [place], [place] MCHC 32.0 % Normal 32.0-36.0 [facility] Comment on above: Performed By: #### A BG, MG3, CMP3M, ICA, PHOS3, HEMDF ####[address] [place], [place] MCV (RBC) [Entitic vol] 87.3 fL Normal 79.0-98.0 [facility] Comment on above: Performed By: #### A BG, MG3, CMP3M, ICA, PHOS3, HEMDF ####[address] [place], [place] Monocytes (Bld) [#/Vol] 0.4 10*3/uL Normal 0.0-0.8 [facility] Comment on above: Performed By: #### A BG, MG3, CMP3M, ICA, PHOS3, HEMDF ####[address] [place], [place] Monocytes/100 WBC (Bld) 9.6 % Normal 2.0-10.0 [facility] Comment on above: Performed By: #### A BG, MG3, CMP3M, ICA, PHOS3, HEMDF ####[address] Platelet mean volume (Bld) [Entitic vol] 9.9 fL Normal 7.4-10.4 [facility] Comment on above: Performed By: #### A BG, MG3, CMP3M, ICA, PHOS3, HEMDF ####[address] [place], [place] Platelets (Bld) [#/Vol] 145 10*3/uL Normal 140-440 [facility] Comment on above: Performed By: #### A BG, MG3, CMP3M, ICA, PHOS3, HEMDF ####[address] [place], [place] RBC (Bld) [#/Vol] 2.76 10*6/uL Low 3.80-5.20 [facility] Comment on above: Performed By: #### A BG, MG3, CMP3M, ICA, PHOS3, HEMDF ####[address] [place], [place] WBC (Bld) [#/Vol] 4.2 10*3/uL Normal 3.6-10.7 [facility] Comment on above: Performed By: #### A BG, MG3, CMP3M, ICA, PHOS3, HEMDF ####[address] [place], [place] Magnesiumon 03-19-2021 Magnesium [Mass/Vol] 1.8 mg/dL Normal 1.6-2.3 [facility] Comment on above: Performed By: #### A BG, MG3, CMP3M, ICA, PHOS3, HEMDF ####[address] [place], [place] Phosphoruson 03-19-2021 Phosphate [Mass/Vol] 3.4 mg/dL Normal 2.5-4.5 [facility] Comment on above: Performed By: #### A BG, MG3, CMP3M, ICA, PHOS3, HEMDF ####[address] [place], [place] Arterial Blood Gaseson 03-18 CO2 [Moles/Vol] 27.4 mmol/L High 23.0-27.0 [facility] Comment on above: Performed By: #### C MP3M, HEMDF, ABG, PHOS3, ICA ####[address] [place], [place] HCO3 (Bld) [Moles/Vol] 26.0 mmol/L High 21.0-25.0 [facility] Comment on above: Performed By: #### C MP3M, HEMDF, ABG, PHOS3, ICA ####[address] [place], [place] Hemoglobin (Bld) [Mass/Vol] 12.1 g/dL Normal ScreenOnly [facility] Comment on above: Performed By: #### C MP3M, HEMDF, ABG, PHOS3, ICA ####[address] [place], [place] Oxygen (Bld) [Partial pressure] 145.0 mm[Hg] High 80.0-100.0 [facility] Comment on above: Performed By: #### C MP3M, HEMDF, ABG, PHOS3, ICA ####[address] [place], [place] Oxygen saturation in Blood 99.2 % Normal 95.0-100.0 [facility] Comment on above: Performed By: #### C MP3M, HEMDF, ABG, PHOS3, ICA ####[address] pCO2 46.3 mm[Hg] High 35.0-45.0 [facility] Comment on above: Performed By: #### C MP3M, HEMDF, ABG, PHOS3, ICA ####[address] pH 7.367 Normal 7.350-7.450 [facility] Comment on above: Performed By: #### C MP3M, HEMDF, ABG, PHOS3, ICA ####[address] Std Base Excess 0.3 mmol/L Normal -3.0-3.0 [facility] Comment on above: Performed By: #### C MP3M, HEMDF, ABG, PHOS3, ICA ####[address] FIO2 No data Normal [facility] Comment on above: Performed By: #### C MP3M, HEMDF, ABG, PHOS3, ICA ####[address] CR Chest Portableon 03-18-20 21 CR Chest Portable Normal [facility] Calcium,Ionizedon 03-18-2021 Ionized Ca,Measured 4.20 mg/dL Low 4.30-5.20 [facility] Comment on above: Performed By: #### C MP3M, HEMDF, ABG, PHOS3, ICA ####[address] pH, Ionized Calcium 7.37 Normal 7.31-7.46 [facility] Comment on above: Performed By: #### C MP3M, HEMDF, ABG, PHOS3, ICA ####[facility] [place] [address] Comp Panel with Mg Reflexon 03-18-2021 ALP [Catalytic activity/Vol] 74 U/L Normal 38-126 [facility] Comment on above: Performed By: #### C MP3M, HEMDF, ABG, PHOS3, ICA ####[facility] [place] ALT [Catalytic activity/Vol] 13 U/L Normal 0-34 [facility] Comment on above: Result Comment: The ALT test is performed by an updated assay method.Please note that the reference intervals have beenchanged and are now sex specific. Performed By: #### C MP3M, HEMDF, ABG, PHOS3, ICA ####[address] [facility] Calcium [Mass/Vol] 8.6 mg/dL Normal 8.4-10.4 [facility] Comment on above: Performed By: #### C MP3M, HEMDF, ABG, PHOS3, ICA ####[address] [facility] [place] Glucose [Mass/Vol] 115 mg/dL High 70-100 [facility] Comment on above: Performed By: #### C MP3M, HEMDF, ABG, PHOS3, ICA ####[address] [facility] [place] Protein [Mass/Vol] 6.6 g/dL Normal 6.3-8.2 [facility] Comment on above: Performed By: #### C MP3M, HEMDF, ABG, PHOS3, ICA ####[address] [facility] [place] Urea nitrogen [Mass/Vol] 18 mg/dL Normal 9-20 [facility] Comment on above: Performed By: #### C MP3M, HEMDF, ABG, PHOS3, ICA ####[address] [place] [address] Anion gap [Moles/Vol] 11 mmol/L Normal 3-13 [facility] Comment on above: Performed By: #### C MP3M, HEMDF, ABG, PHOS3, ICA ####[address] [place], [place] AST [Catalytic activity/Vol] 33 U/L Normal 15-46 [facility] Comment on above: Performed By: #### C MP3M, HEMDF, ABG, PHOS3, ICA ####[address] [place], [place] Bilirubin [Mass/Vol] 0.6 mg/dL Normal 0.2-1.3 [facility] Comment on above: Performed By: #### C MP3M, HEMDF, ABG, PHOS3, ICA ####[address] [place] CO2 [Moles/Vol] 24 mmol/L Normal 22-30 [facility] Comment on above: Performed By: #### C MP3M, HEMDF, ABG, PHOS3, ICA ####[address] [place], [place] Creatinine [Mass/Vol] 3.09 mg/dL High 0.52-1.25 [facility] Comment on above: Performed By: #### C MP3M, HEMDF, ABG, PHOS3, ICA ####[address] [place], [place] GFR/1.73 sq M.predicted among blacks MDRD (S/P/Bld) [Vol rate/Area] 16.6 mL/min/{1.73_m2} Abnormal >60 [facility] Comment on above: Performed By: #### C MP3M, HEMDF, ABG, PHOS3, ICA ####[address] [place] GFR/1.73 sq M.predicted among non-blacks MDRD (S/P/Bld) [Vol rate/Area] 14.3 mL/min/{1.73_m2} Abnormal >60 [facility] Comment on above: Result Comment: KDIG O guidelines provide the following GFR categories:Stage GFR(ml/min/1.73 m2) TermsG1 >=90 Normal or highG2 60-89 Mildly decreased*G3a 45-59 Mildly to moderately [id number] 30-44 Moderately to severely decreasedG4 15-29 Severely decreasedG5 <15 Kidney failure*Relative to young adult level.In the absence of evidence of kidney damage, neither GFRcategory G1 nor G2 fulfill the criteria for CKD.The CKD-EPI equation is validated in individuals 18 yearsof age and older. Currently the best equation forestimating glomerular filtration rate (GFR) from serumcreatinine in children is the Bedside Ly equation.It is less accurate in patients with extremes of musclemass, restriction of dietary protein, ingestion of creatine,extra-renal metabolism of creatinine, or treatment withmedications that affect renal tubular creatinine secretion. Performed By: #### C MP3M, HEMDF, ABG, PHOS3, ICA ####[address] [place], [place] Chloride [Moles/Vol] 102 mmol/L Normal 98-107 [facility] Comment on above: Performed By: #### C MP3M, HEMDF, ABG, PHOS3, ICA ####[address] [place], [place] Potassium [Moles/Vol] 3.6 mmol/L Normal 3.5-5.1 [facility] Comment on above: Performed By: #### C MP3M, HEMDF, ABG, PHOS3, ICA ####[address] [place], [place] Sodium [Moles/Vol] 137 mmol/L Normal 135-145 [facility] Comment on above: Performed By: #### C MP3M, HEMDF, ABG, PHOS3, ICA ####[address] [place], [place] Albumin [Mass/Vol] 3.5 g/dL Normal 3.5-5.0 [facility] Comment on above: Performed By: #### C MP3M, HEMDF, ABG, PHOS3, ICA ####[address] [place] [address] Glucose,Bedsideon 03-18-2021 Glucose [Mass/Vol] 179 mg/dL High 70100 [facility] Comment on above: Result Comment: Test performed by glucose meter. Results may be 10%-15% lowerthan serum/plasma values. (CLIA ID [id number]) Performed By: #### B GLU ####[employer] [id number] [place] [address] Glucose [Mass/Vol] 183 mg/dL High 70-100 [facility] Comment on above: Result Comment: Test performed by glucose meter. Results may be 10%-15% lowerthan serum/plasma values. (CLIA ID [id number]) Performed By: #### B GLU ####[employer] [place] [address] Glucose [Mass/Vol] 122 mg/dL High [address] Comment on above: Result Comment: Test performed by glucose meter. Results may be 10%-15% lowerthan serum/plasma values. (CLIA ID [id number]) Performed By: #### B GLU ####[employer] [place] [address] Glucose [Mass/Vol] 116 mg/dL [address] Comment on above: Result Comment: Test performed by glucose meter. Results may be 10%-15% lowerthan serum/plasma values. (CLIA ID [id number]) Performed By: #### B GLU ####[employer] [place] [address] Glucose [Mass/Vol] 102 mg/dL High 70100 [facility] Comment on above: Result Comment: Test performed by glucose meter. Results may be 10%-15% lowerthan serum/plasma values. (CLIA ID [id number]) Performed By: #### B GLU ####[employer] [address] [place] [address] Hemogram w/ Autodiffon 03-18 Abs Baso Cnt 0.1 10*3/uL Normal 0.0-0.2 [facility] Comment on above: Performed By: #### C MP3M, HEMDF, ABG, PHOS3, ICA ####[address] [place], [place] Abs Neutrophile Cnt 5.6 10*3/uL Normal 1.8-7.0 [facility] Comment on above: Performed By: #### C MP3M, HEMDF, ABG, PHOS3, ICA ####[address] [place], [place] Basophils/100 WBC (Bld) 0.9 % Normal 0.0-2.0 [facility] Comment on above: Performed By: #### C MP3M, HEMDF, ABG, PHOS3, ICA ####[address] [place], [place] Eosinophils (Bld) [#/Vol] 0.4 10*3/uL Normal 0.0-0.5 [facility] Comment on above: Performed By: #### C MP3M, HEMDF, ABG, PHOS3, ICA ####[address] [place], [place] Eosinophils/100 WBC (Bld) 4.7 % Normal 1.0-6.0 [facility] Comment on above: Performed By: #### C MP3M, HEMDF, ABG, PHOS3, ICA ####[address] [place], [place] Erythrocyte distribution width (RBC) [Ratio] 16.8 % High 11.5-14.5 [facility] Comment on above: Performed By: #### C MP3M, HEMDF, ABG, PHOS3, ICA ####[address] [place], [place] Granulocytes/100 WBC (Bld) 67.5 % Normal 40.0-80.0 [facility] Comment on above: Performed By: #### C MP3M, HEMDF, ABG, PHOS3, ICA ####[address] [place], [place] Hematocrit (Bld) [Volume fraction] 26.9 % Low 35.0-47.0 [facility] Comment on above: Performed By: #### C MP3M, HEMDF, ABG, PHOS3, ICA ####[address] [place], [place] Hemoglobin (Bld) [Mass/Vol] 8.6 g/dL Low 11.7-16.0 [facility] Comment on above: Performed By: #### C MP3M, HEMDF, ABG, PHOS3, ICA ####[address] [place], [place] Lymphocytes (Bld) [#/Vol] 1.5 10*3/uL Normal 1.0-4.3 [facility] Comment on above: Performed By: #### C MP3M, HEMDF, ABG, PHOS3, ICA ####[address] [place], [place] Lymphocytes/100 WBC (Bld) 18.0 % Low 20.0-40.0 [facility] Comment on above: Performed By: #### C MP3M, HEMDF, ABG, PHOS3, ICA ####[address] [place], [place] MCH (RBC) [Entitic mass] 28.0 pg Normal 26.0-34.0 [facility] Comment on above: Performed By: #### C MP3M, HEMDF, ABG, PHOS3, ICA ####[address] [place] MCHC 32.0 % Normal 32.0-36.0 [facility] Comment on above: Performed By: #### C MP3M, HEMDF, ABG, PHOS3, ICA ####[address] [place], [place] MCV (RBC) [Entitic vol] 87.4 fL Normal 79.0-98.0 [facility] Comment on above: Performed By: #### C MP3M, HEMDF, ABG, PHOS3, ICA ####[address] [place], [place] Monocytes (Bld) [#/Vol] 0.7 10*3/uL Normal 0.0-0.8 [facility] Comment on above: Performed By: #### C MP3M, HEMDF, ABG, PHOS3, ICA ####[address] [place], [place] Monocytes/100 WBC (Bld) 8.9 % Normal 2.0-10.0 [facility] Comment on above: Performed By: #### C MP3M, HEMDF, ABG, PHOS3, ICA ####[address] [place], [place] Platelet mean volume (Bld) [Entitic vol] 9.4 fL Normal 7.4-10.4 [facility] Comment on above: Performed By: #### C MP3M, HEMDF, ABG, PHOS3, ICA ####[id number] [place], [place] Platelets (Bld) [#/Vol] 197 10*3/uL Normal 140-440 [facility] Comment on above: Performed By: #### C MP3M, HEMDF, ABG, PHOS3, ICA ####[address] [place], [place] RBC (Bld) [#/Vol] 3.08 10*6/uL Low 3.80-5.20 [facility] Comment on above: Performed By: #### C MP3M, HEMDF, ABG, PHOS3, ICA ####[id number] [place], [place] WBC (Bld) [#/Vol] 8.3 10*3/uL Normal 3.6-10.7 [facility] Comment on above: Performed By: #### C MP3M, HEMDF, ABG, PHOS3, ICA ####[id number] [place], [place] Phosphoruson 03-18-2021 Phosphate [Mass/Vol] 4.3 mg/dL Normal 2.5-4.5 [facility] Comment on above: Performed By: #### C MP3M, HEMDF, ABG, PHOS3, ICA ####[address] [place], [place] Arterial Blood Gaseson 03-17 CO2 [Moles/Vol] 24.4 mmol/L Normal 23.0-27.0 [facility] Comment on above: Performed By: #### A BG, LACT3, HEMOG ####[address] [place], [place] HCO3 (Bld) [Moles/Vol] 23.0 mmol/L Normal 21.0-25.0 [facility] Comment on above: Performed By: #### A BG, LACT3, HEMOG ####[address] [place], [place] Hemoglobin (Bld) [Mass/Vol] 10.2 g/dL Normal ScreenOnly [facility] Comment on above: Performed By: #### A BG, LACT3, HEMOG ####[address] [place], [place] Oxygen (Bld) [Partial pressure] 137.9 mm[Hg] High 80.0-100.0 [facility] Comment on above: Performed By: #### A BG, LACT3, HEMOG ####[address] [place], [place] Oxygen saturation in Blood 98.8 % Normal 95.0-100.0 [facility] Comment on above: Performed By: #### A BG, LACT3, HEMOG ####[address] [place], [place] pCO2 45.3 mm[Hg] High 35.0-45.0 [facility] Comment on above: Performed By: #### A BG, LACT3, HEMOG ####[address] [place], [place] pH 7.324 Low 7.350-7.450 [facility] Comment on above: Performed By: #### A BG, LACT3, HEMOG ####[address] [place], [place] Std Base Excess -3.0 mmol/L Normal -3.0-3.0 [facility] Comment on above: Performed By: #### A BG, LACT3, HEMOG ####[address] [place], [place] FIO2 No data Normal [facility] Comment on above: Performed By: #### A BG, LACT3, HEMOG ####[address] [address] [place], [place] CR Abdomen APon 03-17-2021 CR Abdomen AP Normal [facility] CR Chest Portableon 03-17-20 21 CR Chest Portable Normal [facility] Calcium,Ionizedon 03-17-2021 Ionized Ca,Measured 4.20 mg/dL Low 4.30-5.20 [facility] Comment on above: Performed By: #### P HOS3, ICA, CMP3M ####[address] pH, Ionized Calcium 7.33 Normal 7.31-7.46 [facility] Comment on above: Performed By: #### P HOS3, ICA, CMP3M ####[address] Comp Panel with Mg Reflexon 03-17-2021 ALP [Catalytic activity/Vol] 81 U/L Normal 38-126 [facility] Comment on above: Performed By: #### P HOS3, ICA, CMP3M ####[address] ALT [Catalytic activity/Vol] 13 U/L Normal 0-34 [facility] Comment on above: Result Comment: The ALT test is performed by an updated assay method.Please note that the reference intervals have beenchanged and are now sex specific. Performed By: #### P HOS3, ICA, CMP3M ####[address] Anion gap [Moles/Vol] 12 mmol/L Normal 3-13 [facility] Comment on above: Performed By: #### P HOS3, ICA, CMP3M ####[address] [place] [address] AST [Catalytic activity/Vol] 22 U/L Normal 15-46 [facility] Comment on above: Performed By: #### P HOS3, ICA, CMP3M ####[address] [facility] [place] [address] Calcium [Mass/Vol] 8.6 mg/dL Normal 8.4-10.4 [facility] Comment on above: Performed By: #### P HOS3, ICA, CMP3M ####[address] [facility] CO2 [Moles/Vol] 24 mmol/L Normal 22-30 [facility] Comment on above: Performed By: #### P HOS3, ICA, CMP3M ####[address] [facility] [place] Glucose [Mass/Vol] 188 mg/dL High 70-100 [facility] Comment on above: Performed By: #### P HOS3, ICA, CMP3M ####[address] [facility] [place] Protein [Mass/Vol] 6.7 g/dL Normal 6.3-8.2 [facility] Comment on above: Performed By: #### P HOS3, ICA, CMP3M ####[address] [facility] [place] Urea nitrogen [Mass/Vol] 25 mg/dL High 9-20 [facility] Comment on above: Performed By: #### P HOS3, ICA, CMP3M ####[address] [place] [address] Bilirubin [Mass/Vol] 0.5 mg/dL Normal 0.2-1.3 [facility] Comment on above: Performed By: #### P HOS3, ICA, CMP3M ####[address] [facility] [place] [address] Creatinine [Mass/Vol] 4.04 mg/dL High 0.52-1.25 [facility] Comment on above: Performed By: #### P HOS3, ICA, CMP3M ####[facility] [employer] [id number] [place] [address] GFR/1.73 sq M.predicted among blacks MDRD (S/P/Bld) [Vol rate/Area] 12.0 mL/min/{1.73_m2} Abnormal >60 [facility] Comment on above: Performed By: #### P HOS3, ICA, CMP3M ####[facility] [employer] [id number] [place] [address] GFR/1.73 sq M.predicted among non-blacks MDRD (S/P/Bld) [Vol rate/Area] 10.4 mL/min/{1.73_m2} Abnormal >60 [facility] Comment on above: Result Comment: KDIG O guidelines provide the following GFR categories:Stage GFR(ml/min/1.73 m2) TermsG1 >=90 Normal or highG2 60-89 Mildly decreased*G3a 45-59 Mildly to moderately [id number] 30-44 Moderately to severely decreasedG4 15-29 Severely decreasedG5 <15 Kidney failure*Relative to young adult level.In the absence of evidence of kidney damage, neither GFRcategory G1 nor G2 fulfill the criteria for CKD.The CKD-EPI equation is validated in individuals 18 yearsof age and older. Currently the best equation forestimating glomerular filtration rate (GFR) from serumcreatinine in children is the Bedside Ly equation.It is less accurate in patients with extremes of musclemass, restriction of dietary protein, ingestion of creatine,extra-renal metabolism of creatinine, or treatment withmedications that affect renal tubular creatinine secretion. Performed By: #### P HOS3, ICA, CMP3M ####[facility] [employer] [id number] [place], [place] Albumin [Mass/Vol] 3.4 g/dL Low 3.5-5.0 [facility] Comment on above: Performed By: #### P HOS3, ICA, CMP3M ####[address] [place], [place] Potassium [Moles/Vol] 4.3 mmol/L Normal 3.5-5.1 [facility] Comment on above: Performed By: #### P HOS3, ICA, CMP3M ####[address] [place] [address] Sodium [Moles/Vol] 140 mmol/L Normal 135-145 [facility] Comment on above: Performed By: #### P HOS3, ICA, CMP3M ####[facility] [place] [address] Chloride [Moles/Vol] 105 mmol/L Normal 98-107 [facility] Comment on above: Performed By: #### P HOS3, ICA, CMP3M ####[address] [place] [address] Echo Complete w/wo Contrasto n 03-17-2021 Echo Complete w/wo Contrast Normal [facility] Glucose,Bedsideon 03-17-2021 Glucose [Mass/Vol] 92 mg/dL Normal 70-100 [facility] Comment on above: Result Comment: Test performed by glucose meter. Results may be 10%-15% lowerthan serum/plasma values. (CLIA ID [id number]) Performed By: #### B GLU ####[address] [place] [address] Glucose [Mass/Vol] 109 mg/dL High 70-100 [facility] Comment on above: Result Comment: Test performed by glucose meter. Results may be 10%-15% lowerthan serum/plasma values. (CLIA ID [id number]) Performed By: #### B GLU ####[address] [place] [address] Glucose [Mass/Vol] 139 mg/dL High 70-100 [facility] Comment on above: Result Comment: Test performed by glucose meter. Results may be 10%-15% lowerthan serum/plasma values. (CLIA ID [id number]) Performed By: #### B GLU ####[address] [place] [address] Glucose [Mass/Vol] 153 mg/dL High 70-100 [facility] Comment on above: Result Comment: Test performed by glucose meter. Results may be 10%-15% lowerthan serum/plasma values. (CLIA ID [id number]) Performed By: #### B GLU ####[address] [place], [place] Glucose [Mass/Vol] 144 mg/dL High 70-100 [facility] Comment on above: Result Comment: Test performed by glucose meter. Results may be 10%-15% lowerthan serum/plasma values. (CLIA ID [id number]) Performed By: #### B GLU ####[address] Hemogramon 03-17-2021 Erythrocyte distribution width (RBC) [Ratio] 16.7 % High 11.5-14.5 [facility] Comment on above: Performed By: #### A BG, LACT3, HEMOG ####[address] Hematocrit (Bld) [Volume fraction] 31.5 % Low 35.0-47.0 [facility] Comment on above: Performed By: #### A BG, LACT3, HEMOG ####[address] [place], [place] Hemoglobin (Bld) [Mass/Vol] 10.0 g/dL Low 11.7-16.0 [facility] Comment on above: Performed By: #### A BG, LACT3, HEMOG ####[address] [place], [place] MCH (RBC) [Entitic mass] 27.8 pg Normal 26.0-34.0 [facility] Comment on above: Performed By: #### A BG, LACT3, HEMOG ####[address] [place], [place] MCHC 31.8 % Low 32.0-36.0 [facility] Comment on above: Performed By: #### A BG, LACT3, HEMOG ####[address] MCV (RBC) [Entitic vol] 87.4 fL Normal 79.0-98.0 [facility] Comment on above: Performed By: #### A BG, LACT3, HEMOG ####[address] [place], [place] Platelet mean volume (Bld) [Entitic vol] 9.6 fL Normal 7.4-10.4 [facility] Comment on above: Performed By: #### A BG, LACT3, HEMOG ####[address] [place], [place] Platelets (Bld) [#/Vol] 268 10*3/uL Normal 140-440 [facility] Comment on above: Performed By: #### A BG, LACT3, HEMOG ####[address] [place], [place] RBC (Bld) [#/Vol] 3.61 10*6/uL Low 3.80-5.20 [facility] Comment on above: Performed By: #### A BG, LACT3, HEMOG ####[address] [place], [place] WBC (Bld) [#/Vol] 10.5 10*3/uL Normal 3.6-10.7 [facility] Comment on above: Performed By: #### A BG, LACT3, HEMOG ####[address] [place], [place] Hep B Surface Abon 1 Hep B Surface Ab < 8.0 Normal [facility] Comment on above: Result Comment: Inte rpretation:<8.0 Non-Reactive8.0-11.9 Equivocal>= 12.0 Ab DetectedNote: If an equivocal result is interpreted, an antibodystatus is unable to be determined. Collect new specimenif clinically indicated. Performed By: #### H BSAG, HBSA ####[address] [place], [place] Hep B Surface Ab < 8.0 Normal [facility] Comment on above: Result Comment: Inte rpretation:<8.0 Non-Reactive8.0-11.9 Equivocal>= 12.0 Ab DetectedNote: If an equivocal result is interpreted, an antibodystatus is unable to be determined. Collect new specimenif clinically indicated. Performed By: #### H BSA, HBSAG ####[address] [place], [place] Hep B Surface Agon Hep B Surface Ag Not detected Normal Not Detected [facility] Comment on above: Performed By: #### H BSAG, HBSA ####[address] Hep B Surface Ag Not detected Normal Not Detected [facility] Comment on above: Performed By: #### H BSA, HBSAG ####[address] Lactic Acidon 03-17-2021 Lactate [Moles/Vol] 1.4 mmol/L Normal 0.7-2.0 [facility] Comment on above: Performed By: #### A BG, LACT3, HEMOG ####[address] Phosphoruson 03-17-2021 Phosphate [Mass/Vol] 7.1 mg/dL High 2.5-4.5 [facility] Comment on above: Performed By: #### P HOS3, ICA, CMP3M ####[address] Arterial Blood Gaseson 03-16 CO2 [Moles/Vol] 26.0 mmol/L Normal 23.0-27.0 [facility] Comment on above: Performed By: #### A BG, ICA, PHOS3, CMP3M, CK3, HEMDF ####[address] HCO3 (Bld) [Moles/Vol] 24.4 mmol/L Normal 21.0-25.0 [facility] Comment on above: Performed By: #### A BG, ICA, PHOS3, CMP3M, CK3, HEMDF ####[address] Hemoglobin (Bld) [Mass/Vol] 10.2 g/dL Normal ScreenOnly [facility] Comment on above: Performed By: #### A BG, ICA, PHOS3, CMP3M, CK3, HEMDF ####[address] [place], [place] Oxygen (Bld) [Partial pressure] 208.3 mm[Hg] High 80.0-100.0 [facility] Comment on above: Performed By: #### A BG, ICA, PHOS3, CMP3M, CK3, HEMDF ####[address] [place], [place] Oxygen saturation in Blood 99.6 % Normal 95.0-100.0 [facility] Comment on above: Performed By: #### A BG, ICA, PHOS3, CMP3M, CK3, HEMDF ####[address] pCO2 49.9 mm[Hg] High 35.0-45.0 [facility] Comment on above: Performed By: #### A BG, ICA, PHOS3, CMP3M, CK3, HEMDF ####[address] [place], [place] pH 7.308 Low 7.350-7.450 [facility] Comment on above: Performed By: #### A BG, ICA, PHOS3, CMP3M, CK3, HEMDF ####[address] Std Base Excess -2.1 mmol/L Normal -3.0-3.0 [facility] Comment on above: Performed By: #### A BG, ICA, PHOS3, CMP3M, CK3, HEMDF ####[address] FIO2 No data Normal [facility] Comment on above: Performed By: #### A BG, ICA, PHOS3, CMP3M, CK3, HEMDF ####[address] [place], [place] CKon 03-16-2021 CK [Catalytic activity/Vol] 132 U/L Normal 30-170 [facility] Comment on above: Performed By: #### A BG, ICA, PHOS3, CMP3M, CK3, HEMDF ####[address] [place], [place] CR Chest Portableon 03-16-20 21 CR Chest Portable Normal [facility] Calcium,Ionizedon 03-16-2021 Ionized Ca,Measured 4.20 mg/dL Low 4.30-5.20 [facility] Comment on above: Performed By: #### A BG, ICA, PHOS3, CMP3M, CK3, HEMDF ####[address] [place], [place] pH, Ionized Calcium 7.28 Low 7.31-7.46 [facility] Comment on above: Performed By: #### A BG, ICA, PHOS3, CMP3M, CK3, HEMDF ####[address] [place], [place] Comp Panel with Mg Reflexon 03-16-2021 ALP [Catalytic activity/Vol] 79 U/L Normal 38-126 [facility] Comment on above: Performed By: #### A BG, ICA, PHOS3, CMP3M, CK3, HEMDF ####[address] [place], [place] ALT [Catalytic activity/Vol] 11 U/L Normal 0-34 [facility] Comment on above: Result Comment: The ALT test is performed by an updated assay method.Please note that the reference intervals have beenchanged and are now sex specific. Performed By: #### A BG, ICA, PHOS3, CMP3M, CK3, HEMDF ####[address] [place], [place] Anion gap [Moles/Vol] 10 mmol/L Normal 3-13 [facility] Comment on above: Performed By: #### A BG, ICA, PHOS3, CMP3M, CK3, HEMDF ####[address] [place], [place] AST [Catalytic activity/Vol] 23 U/L Normal 15-46 [facility] Comment on above: Performed By: #### A BG, ICA, PHOS3, CMP3M, CK3, HEMDF ####[facility] [place], [place] Calcium [Mass/Vol] 8.4 mg/dL Normal 8.4-10.4 [facility] Comment on above: Performed By: #### A BG, ICA, PHOS3, CMP3M, CK3, HEMDF ####[address] [place] CO2 [Moles/Vol] 25 mmol/L Normal 22-30 [facility] Comment on above: Performed By: #### A BG, ICA, PHOS3, CMP3M, CK3, HEMDF ####[address] [place], [place] Glucose [Mass/Vol] 189 mg/dL High 70-100 [facility] Comment on above: Performed By: #### A BG, ICA, PHOS3, CMP3M, CK3, HEMDF ####[facility] [place], [place] Protein [Mass/Vol] 6.7 g/dL Normal 6.3-8.2 [facility] Comment on above: Performed By: #### A BG, ICA, PHOS3, CMP3M, CK3, HEMDF ####[address] [place], [place] Urea nitrogen [Mass/Vol] 22 mg/dL High 9-20 [facility] Comment on above: Performed By: #### A BG, ICA, PHOS3, CMP3M, CK3, HEMDF ####[address] [place], [place] Bilirubin [Mass/Vol] 0.6 mg/dL Normal 0.2-1.3 [facility] Comment on above: Performed By: #### A BG, ICA, PHOS3, CMP3M, CK3, HEMDF ####[facility] [place], [place] Creatinine [Mass/Vol] 3.33 mg/dL High 0.52-1.25 [facility] Comment on above: Performed By: #### A BG, ICA, PHOS3, CMP3M, CK3, HEMDF ####[address] [place] [address] GFR/1.73 sq M.predicted among blacks MDRD (S/P/Bld) [Vol rate/Area] 15.2 mL/min/{1.73_m2} Abnormal >60 [facility] Comment on above: Performed By: #### A BG, ICA, PHOS3, CMP3M, CK3, HEMDF ####[address] [place], [place] GFR/1.73 sq M.predicted among non-blacks MDRD (S/P/Bld) [Vol rate/Area] 13.1 mL/min/{1.73_m2} Abnormal >60 [facility] Comment on above: Result Comment: KDIG O guidelines provide the following GFR categories:Stage GFR(ml/min/1.73 m2) TermsG1 >=90 Normal or highG2 60-89 Mildly decreased*G3a 45-59 Mildly to moderately mguuhjprdH9y 30-44 Moderately to severely decreasedG4 15-29 Severely decreasedG5 <15 Kidney failure*Relative to young adult level.In the absence of evidence of kidney damage, neither GFRcategory G1 nor G2 fulfill the criteria for CKD.The CKD-EPI equation is validated in individuals 18 yearsof age and older. Currently the best equation forestimating glomerular filtration rate (GFR) from serumcreatinine in children is the Bedside Ly equation.It is less accurate in patients with extremes of musclemass, restriction of dietary protein, ingestion of creatine,extra-renal metabolism of creatinine, or treatment withmedications that affect renal tubular creatinine secretion. Performed By: #### A BG, ICA, PHOS3, CMP3M, CK3, HEMDF ####[address] [place] [address] Albumin [Mass/Vol] 3.4 g/dL Low 3.5-5.0 [facility] Comment on above: Performed By: #### A BG, ICA, PHOS3, CMP3M, CK3, HEMDF ####[address] [place] [address] Chloride [Moles/Vol] 104 mmol/L Normal 98-107 [facility] Comment on above: Performed By: #### A BG, ICA, PHOS3, CMP3M, CK3, HEMDF ####[address] [place] [address] Potassium [Moles/Vol] 3.9 mmol/L Normal 3.5-5.1 [facility] Comment on above: Performed By: #### A BG, ICA, PHOS3, CMP3M, CK3, HEMDF ####[address] [place] [address] Sodium [Moles/Vol] 140 mmol/L Normal 135-145 [facility] Comment on above: Performed By: #### A BG, ICA, PHOS3, CMP3M, CK3, HEMDF ####[address] [place] [address] Glucose,Bedsideon 03-16-2021 Glucose [Mass/Vol] 189 mg/dL [facility] 70-100 [facility] Comment on above: Result Comment: Test performed by glucose meter. Results may be 10%-15% lowerthan serum/plasma values. (CLIA ID [id number]) Performed By: #### B GLU ####[address] [place] [address] Glucose [Mass/Vol] 217 mg/dL High 70-100 [facility] Comment on above: Result Comment: Test performed by glucose meter. Results may be 10%-15% lowerthan serum/plasma values. (CLIA ID [id number]) Performed By: #### B GLU ####[address] [place] [address] Glucose [Mass/Vol] 227 mg/dL High 70-100 [facility] Comment on above: Result Comment: Test performed by glucose meter. Results may be 10%-15% lowerthan serum/plasma values. (CLIA ID [id number]) Performed By: #### B GLU ####[address] [place], [place] Glucose [Mass/Vol] 206 mg/dL High 70-100 [facility] Comment on above: Result Comment: Test performed by glucose meter. Results may be 10%-15% lowerthan serum/plasma values. (CLIA ID [id number]) Performed By: #### B GLU ####[address] [place], [place] Glucose [Mass/Vol] 159 mg/dL High 70-100 [facility] Comment on above: Result Comment: Test performed by glucose meter. Results may be 10%-15% lowerthan serum/plasma values. (CLIA ID [id number]) Performed By: #### B GLU ####[address] [place], [place] Hemogram w/ Autodiffon 03-16 Abs Baso Cnt 0.0 10*3/uL Normal 0.0-0.2 [facility] Comment on above: Performed By: #### A BG, ICA, PHOS3, CMP3M, CK3, HEMDF ####[address] [place], [place] Abs Neutrophile Cnt 6.5 10*3/uL Normal 1.8-7.0 [facility] Comment on above: Performed By: #### A BG, ICA, PHOS3, CMP3M, CK3, HEMDF ####[address] [place], [place] Basophils/100 WBC (Bld) 0.2 % Normal 0.0-2.0 [facility] Comment on above: Performed By: #### A BG, ICA, PHOS3, CMP3M, CK3, HEMDF ####[address] [place], [place] Eosinophils (Bld) [#/Vol] 0.0 10*3/uL Normal 0.0-0.5 [facility] Comment on above: Performed By: #### A BG, ICA, PHOS3, CMP3M, CK3, HEMDF ####[address] [place], [place] Eosinophils/100 WBC (Bld) 0.1 % Low 1.0-6.0 [facility] Comment on above: Performed By: #### A BG, ICA, PHOS3, CMP3M, CK3, HEMDF ####[address] [place], [place] Erythrocyte distribution width (RBC) [Ratio] 16.8 % High 11.5-14.5 [facility] Comment on above: Performed By: #### A BG, ICA, PHOS3, CMP3M, CK3, HEMDF ####[address] Granulocytes/100 WBC (Bld) 90.6 % High 40.0-80.0 [facility] Comment on above: Performed By: #### A BG, ICA, PHOS3, CMP3M, CK3, HEMDF ####[address] Hematocrit (Bld) [Volume fraction] 30.6 % Low 35.0-47.0 [facility] Comment on above: Performed By: #### A BG, ICA, PHOS3, CMP3M, CK3, HEMDF ####[address] [place], [place] Hemoglobin (Bld) [Mass/Vol] 9.8 g/dL Low 11.7-16.0 [facility] Comment on above: Performed By: #### A BG, ICA, PHOS3, CMP3M, CK3, HEMDF ####[address] [place] Lymphocytes (Bld) [#/Vol] 0.4 10*3/uL Low 1.0-4.3 [facility] Comment on above: Performed By: #### A BG, ICA, PHOS3, CMP3M, CK3, HEMDF ####[address] Lymphocytes/100 WBC (Bld) 5.4 % Low 20.0-40.0 [facility] Comment on above: Performed By: #### A BG, ICA, PHOS3, CMP3M, CK3, HEMDF ####[address] [place], [place] MCH (RBC) [Entitic mass] 28.2 pg Normal 26.0-34.0 [facility] Comment on above: Performed By: #### A BG, ICA, PHOS3, CMP3M, CK3, HEMDF ####[address] [place] MCHC 32.0 % Normal 32.0-36.0 [facility] Comment on above: Performed By: #### A BG, ICA, PHOS3, CMP3M, CK3, HEMDF ####[address] [place] MCV (RBC) [Entitic vol] 88.1 fL Normal 79.0-98.0 [facility] Comment on above: Performed By: #### A BG, ICA, PHOS3, CMP3M, CK3, HEMDF ####[address] [place] Monocytes (Bld) [#/Vol] 0.3 10*3/uL Normal 0.0-0.8 [facility] Comment on above: Performed By: #### A BG, ICA, PHOS3, CMP3M, CK3, HEMDF ####[address] [place], [place] Monocytes/100 WBC (Bld) 3.7 % Normal 2.0-10.0 [facility] Comment on above: Performed By: #### A BG, ICA, PHOS3, CMP3M, CK3, HEMDF ####[address] [place], [place] Platelet mean volume (Bld) [Entitic vol] 9.7 fL Normal 7.4-10.4 [facility] Comment on above: Performed By: #### A BG, ICA, PHOS3, CMP3M, CK3, HEMDF ####[address] [place] Platelets (Bld) [#/Vol] 183 10*3/uL Normal 140-440 [facility] Comment on above: Performed By: #### A BG, ICA, PHOS3, CMP3M, CK3, HEMDF ####[address] [place], [place] RBC (Bld) [#/Vol] 3.48 10*6/uL Low 3.80-5.20 [facility] Comment on above: Performed By: #### A BG, ICA, PHOS3, CMP3M, CK3, HEMDF ####[address] [place] WBC (Bld) [#/Vol] 7.1 10*3/uL Normal 3.6-10.7 [facility] Comment on above: Performed By: #### A BG, ICA, PHOS3, CMP3M, CK3, HEMDF ####[address] [place] Phosphoruson 03-16-2021 Phosphate [Mass/Vol] 6.4 mg/dL High 2.5-4.5 [facility] Comment on above: Performed By: #### A BG, ICA, PHOS3, CMP3M, CK3, HEMDF ####[address] [place], [place] Vancomycin Troughon 03-16-20 21 Vancomycin Trough 36.8 ug/mL High 15.0-20.0 [facility] Comment on above: Result Comment: . Performed By: #### V ANCT ####[address] [place], [place] Arterial Blood Gaseson 03-15 CO2 [Moles/Vol] 28.9 mmol/L High 23.0-27.0 [facility] Comment on above: Performed By: #### C MP3M, HEMDF, ICA, ABG, PHOS3 ####[address] [place], [place] HCO3 (Bld) [Moles/Vol] 27.1 mmol/L High 21.0-25.0 [facility] Comment on above: Performed By: #### C MP3M, HEMDF, ICA, ABG, PHOS3 ####[address] [place], [place] Hemoglobin (Bld) [Mass/Vol] 10.9 g/dL Normal ScreenOnly [facility] Comment on above: Performed By: #### C MP3M, HEMDF, ICA, ABG, PHOS3 ####[address] [place], [place] Oxygen (Bld) [Partial pressure] 135.6 mm[Hg] High 80.0-100.0 [facility] Comment on above: Performed By: #### C MP3M, HEMDF, ICA, ABG, PHOS3 ####[address] Oxygen saturation in Blood 98.4 % Normal 95.0-100.0 [facility] Comment on above: Performed By: #### C MP3M, HEMDF, ICA, ABG, PHOS3 ####[address] [place], [place] pCO2 58.8 mm[Hg] High 35.0-45.0 [facility] Comment on above: Performed By: #### C MP3M, HEMDF, ICA, ABG, PHOS3 ####[address] [place], [place] pH 7.282 Low 7.350-7.450 [facility] Comment on above: Performed By: #### C MP3M, HEMDF, ICA, ABG, PHOS3 ####[address] [place], [place] Std Base Excess -0.4 mmol/L Normal -3.0-3.0 [facility] Comment on above: Performed By: #### C MP3M, HEMDF, ICA, ABG, PHOS3 ####[address] [place], [place] FIO2 35% Normal [facility] Comment on above: Performed By: #### C MP3M, HEMDF, ICA, ABG, PHOS3 ####[address] CR Chest Portableon 03-15-20 21 CR Chest Portable Normal [facility] CULT/STAIN - AEROBIC AND LEWIS EROBICon 03-15-2021 CULT/STAIN - AEROBIC AND ANAEROBIC Normal [facility] Comment on above: Performed By: #### C KIARRA ####[address] [id number] [address] [place], [place] Calcium,Ionizedon 03-15-2021 Ionized Ca,Measured 4.30 mg/dL Normal 4.30-5.20 [facility] Comment on above: Performed By: #### C MP3M, HEMDF, ICA, ABG, PHOS3 ####[address] pH, Ionized Calcium 7.25 Low 7.31-7.46 [facility] Comment on above: Performed By: #### C MP3M, HEMDF, ICA, ABG, PHOS3 ####[address] Comp Panel with Mg Reflexon 03-15-2021 ALP [Catalytic activity/Vol] 70 U/L Normal 38-126 [facility] Comment on above: Performed By: #### C MP3M, HEMDF, ICA, ABG, PHOS3 ####[address] ALT [Catalytic activity/Vol] 10 U/L Normal 0-34 [facility] Comment on above: Result Comment: The ALT test is performed by an updated assay method.Please note that the reference intervals have beenchanged and are now sex specific. Performed By: #### C MP3M, HEMDF, ICA, ABG, PHOS3 ####[address] AST [Catalytic activity/Vol] 20 U/L Normal 15-46 [facility] Comment on above: Performed By: #### C MP3M, HEMDF, ICA, ABG, PHOS3 ####[facility] [facility] [address] Bilirubin [Mass/Vol] 0.5 mg/dL Normal 0.2-1.3 [facility] Comment on above: Performed By: #### C MP3M, HEMDF, ICA, ABG, PHOS3 ####[address] [facility] [place] Calcium [Mass/Vol] 8.1 mg/dL Low 8.4-10.4 [facility] Comment on above: Performed By: #### C MP3M, HEMDF, ICA, ABG, PHOS3 ####[address] [facility] [place] Glucose [Mass/Vol] 146 mg/dL High 70-100 [facility] Comment on above: Performed By: #### C MP3M, HEMDF, ICA, ABG, PHOS3 ####[address] [facility] [place] Protein [Mass/Vol] 6.1 g/dL Low 6.3-8.2 [facility] Comment on above: Performed By: #### C MP3M, HEMDF, ICA, ABG, PHOS3 ####[address] [facility] [place] Urea nitrogen [Mass/Vol] 19 mg/dL Normal 9-20 [facility] Comment on above: Performed By: #### C MP3M, HEMDF, ICA, ABG, PHOS3 ####[address] [facility] [address] Anion gap [Moles/Vol] 8 mmol/L Normal 3-13 [facility] Comment on above: Performed By: #### C MP3M, HEMDF, ICA, ABG, PHOS3 ####[address] CO2 [Moles/Vol] 28 mmol/L Normal 22-30 [facility] Comment on above: Performed By: #### C MP3M, HEMDF, ICA, ABG, PHOS3 ####[facility] [employer] [id number] [place], [place] Creatinine [Mass/Vol] 3.02 mg/dL High 0.52-1.25 [facility] Comment on above: Performed By: #### C MP3M, HEMDF, ICA, ABG, PHOS3 ####[facility] [employer] [id number] [place], [place] GFR/1.73 sq M.predicted among blacks MDRD (S/P/Bld) [Vol rate/Area] 17.1 mL/min/{1.73_m2} Abnormal >60 [facility] Comment on above: Performed By: #### C MP3M, HEMDF, ICA, ABG, PHOS3 ####[facility] [employer] [id number] [place], [place] GFR/1.73 sq M.predicted among non-blacks MDRD (S/P/Bld) [Vol rate/Area] 14.7 mL/min/{1.73_m2} Abnormal >60 [facility] Comment on above: Result Comment: KDIG O guidelines provide the following GFR categories:Stage GFR(ml/min/1.73 m2) TermsG1 >=90 Normal or highG2 60-89 Mildly decreased*G3a 45-59 Mildly to moderately bbpejteciT4y 30-44 Moderately to severely decreasedG4 15-29 Severely decreasedG5 <15 Kidney failure*Relative to young adult level.In the absence of evidence of kidney damage, neither GFRcategory G1 nor G2 fulfill the criteria for CKD.The CKD-EPI equation is validated in individuals 18 yearsof age and older. Currently the best equation forestimating glomerular filtration rate (GFR) from serumcreatinine in children is the Bedside Ly equation.It is less accurate in patients with extremes of musclemass, restriction of dietary protein, ingestion of creatine,extra-renal metabolism of creatinine, or treatment withmedications that affect renal tubular creatinine secretion. Performed By: #### C MP3M, HEMDF, ICA, ABG, PHOS3 ####[facility] [employer] [id number] [place] [address] Albumin [Mass/Vol] 3.2 g/dL Low 3.5-5.0 [facility] Comment on above: Performed By: #### C MP3M, HEMDF, ICA, ABG, PHOS3 ####[facility] [place] [address] Potassium [Moles/Vol] 3.9 mmol/L Normal 3.5-5.1 [facility] Comment on above: Performed By: #### C MP3M, HEMDF, ICA, ABG, PHOS3 ####[address] [place] [address] Sodium [Moles/Vol] 141 mmol/L Normal 135-145 [facility] Comment on above: Performed By: #### C MP3M, HEMDF, ICA, ABG, PHOS3 ####[address] [place] [address] Chloride [Moles/Vol] 105 mmol/L Normal 98-107 [facility] Comment on above: Performed By: #### C MP3M, HEMDF, ICA, ABG, PHOS3 ####[address] [place] [address] Glucose,Bedsideon 03-15-2021 Glucose [Mass/Vol] 156 mg/dL High 70-100 [facility] Comment on above: Result Comment: Test performed by glucose meter. Results may be 10%-15% lowerthan serum/plasma values. (CLIA ID [id number]) Performed By: #### B GLU ####[address] [place] [address] Glucose [Mass/Vol] 164 mg/dL High 70-100 [facility] Comment on above: Result Comment: Test performed by glucose meter. Results may be 10%-15% lowerthan serum/plasma values. (CLIA ID [id number]) Performed By: #### B GLU ####[address] [place] [address] Glucose [Mass/Vol] 166 mg/dL High 70-100 [facility] Comment on above: Result Comment: Test performed by glucose meter. Results may be 10%-15% lowerthan serum/plasma values. (CLIA ID [id number]) Performed By: #### B GLU ####[address] [place], [place] Glucose [Mass/Vol] 169 mg/dL High 70-100 [facility] Comment on above: Result Comment: Test performed by glucose meter. Results may be 10%-15% lowerthan serum/plasma values. (CLIA ID [id number]) Performed By: #### B GLU ####[address] Hemogram w/ Autodiffon 03-15 Abs Baso Cnt 0.0 10*3/uL Normal 0.0-0.2 [facility] Comment on above: Performed By: #### C MP3M, HEMDF, ICA, ABG, PHOS3 ####[address] Abs Neutrophile Cnt 4.9 10*3/uL Normal 1.8-7.0 [facility] Comment on above: Performed By: #### C MP3M, HEMDF, ICA, ABG, PHOS3 ####[address] [place], [place] Basophils/100 WBC (Bld) 0.6 % Normal 0.0-2.0 [facility] Comment on above: Performed By: #### C MP3M, HEMDF, ICA, ABG, PHOS3 ####[address] [place], [place] Eosinophils (Bld) [#/Vol] 0.2 10*3/uL Normal 0.0-0.5 [facility] Comment on above: Performed By: #### C MP3M, HEMDF, ICA, ABG, PHOS3 ####[address] [place], [place] Eosinophils/100 WBC (Bld) 3.1 % Normal 1.0-6.0 [facility] Comment on above: Performed By: #### C MP3M, HEMDF, ICA, ABG, PHOS3 ####[address] [place], [place] Erythrocyte distribution width (RBC) [Ratio] 16.6 % High 11.5-14.5 [facility] Comment on above: Performed By: #### C MP3M, HEMDF, ICA, ABG, PHOS3 ####[address] [place], [place] Granulocytes/100 WBC (Bld) 70.9 % Normal 40.0-80.0 [facility] Comment on above: Performed By: #### C MP3M, HEMDF, ICA, ABG, PHOS3 ####[address] [place], [place] Hematocrit (Bld) [Volume fraction] 29.0 % Low 35.0-47.0 [facility] Comment on above: Performed By: #### C MP3M, HEMDF, ICA, ABG, PHOS3 ####[address] [place], [place] Hemoglobin (Bld) [Mass/Vol] 9.3 g/dL Low 11.7-16.0 [facility] Comment on above: Performed By: #### C MP3M, HEMDF, ICA, ABG, PHOS3 ####[address] [place], [place] Lymphocytes (Bld) [#/Vol] 1.1 10*3/uL Normal 1.0-4.3 [facility] Comment on above: Performed By: #### C MP3M, HEMDF, ICA, ABG, PHOS3 ####[address] [place], [place] Lymphocytes/100 WBC (Bld) 16.4 % Low 20.0-40.0 [facility] Comment on above: Performed By: #### C MP3M, HEMDF, ICA, ABG, PHOS3 ####[address] [place], [place] MCH (RBC) [Entitic mass] 28.4 pg Normal 26.0-34.0 [facility] Comment on above: Performed By: #### C MP3M, HEMDF, ICA, ABG, PHOS3 ####[facility] [place], [place] MCHC 32.1 % Normal 32.0-36.0 [facility] Comment on above: Performed By: #### C MP3M, HEMDF, ICA, ABG, PHOS3 ####[address] [place], [place] MCV (RBC) [Entitic vol] 88.6 fL Normal 79.0-98.0 [facility] Comment on above: Performed By: #### C MP3M, HEMDF, ICA, ABG, PHOS3 ####[address] [place], [place] Monocytes (Bld) [#/Vol] 0.6 10*3/uL Normal 0.0-0.8 [facility] Comment on above: Performed By: #### C MP3M, HEMDF, ICA, ABG, PHOS3 ####[address] [place], [place] Monocytes/100 WBC (Bld) 9.0 % Normal 2.0-10.0 [facility] Comment on above: Performed By: #### C MP3M, HEMDF, ICA, ABG, PHOS3 ####[address] [place], [place] Platelet mean volume (Bld) [Entitic vol] 9.7 fL Normal 7.4-10.4 [facility] Comment on above: Performed By: #### C MP3M, HEMDF, ICA, ABG, PHOS3 ####[address] [place], [place] Platelets (Bld) [#/Vol] 179 10*3/uL Normal 140-440 [facility] Comment on above: Performed By: #### C MP3M, HEMDF, ICA, ABG, PHOS3 ####[address] [place] RBC (Bld) [#/Vol] 3.27 10*6/uL Low 3.80-5.20 [facility] Comment on above: Performed By: #### C MP3M, HEMDF, ICA, ABG, PHOS3 ####[address] [place], [place] WBC (Bld) [#/Vol] 6.9 10*3/uL Normal 3.6-10.7 [facility] Comment on above: Performed By: #### C MP3M, HEMDF, ICA, ABG, PHOS3 ####[address] [place], [place] Op Noteon 03-15-2021 Op Note Pre-operative Diagno sis: Right foot abscess Post-operative Diagnosis: Same Procedure: #1 Incision and drainage abscess Right foot (Wound dimensions: Length proximal to distal: 8 cm, Width medial to lateral: 6 cm, Depth: 1 cm #2 Application wound VAC, wound >50 sq cm #3 Amputation Right 5th toe Components used: VAC Anesthesia: General Surgeon: Sandra Assistants: Indigo Estimated Blood Loss: Less than 100 ml Complications: None Specimens: None Medications: Salazar was on scheduled antibiotics pre-operatively and no additional antibiotics were given Operative findings: The Right foot abscess involved the plantar forefoot including skin, subcutaneous tissue muscle and bone. The fifth toe was amputated secondary to necrosis. The fourth and fifth metatarsal heads were necrotic and were excised. A VAC dressing was placed overlying the plantar wound. History of present illness: Salazar is a 70 y.o. female with a necrosis of the right foot. Given her body habitus and skin condition she was not a good candidate for below-knee amputation. I therefore made a recommendation for the above mentioned procedure. Despite the known risks of the above mentioned surgery, which were discussed with Salazar's family, they consented to the procedure. Operative report: I met with Salazar's family prior to the procedure and discussed the surgical plan once again and answered all of their questions related to the procedure and the expected post-operative course. The risks of surgery were discussed including but not limited to the risks of medications given for surgery, the risk of blood loss during and after surgery that can lead to the need for blood products in certain situations, infection, damage to normal structures that can lead to ad terminal makeup operator problems of pain or dysfunction, wound healing complications, and late or chronic pain as a result of the surgical intervention. In addition potentially life threatening complications that can occur at the time of surgery and after surgery were discussed including but not limited to deep vein thrombosis, pulmonary embolism, myocardial infarction, stroke and . I initialed her Right lower extremity and signed her consent form. Salazar was then brought to the operating room.. Care was taken to identify and pad all bony prominences. A general anesthetic was then given by the anesthesia staff and an endotracheal tube was placed by the anesthesia staff. At all times during the operative procedure the patient's head neck and airway were protected by the anesthesia staff. A tourniquet was not utilized for the case. Total tourniquet time was less than Not applicable . The Right lower extremity was then prepped and draped in the usual orthopedic sterile fashion. A surgical timeout was then performed with the patient's identification, the procedure to be performed being reviewed with the consent form, verification that the patient had received preoperative antibiotics, and verification of the correct surgical side. Everyone in the operating room stopped what they were doing in order to participate in the timeout. This timeout was performed by myself, the circulating room nurse and the anesthesia staff. The patient's ASA was verified by the nurse telecommunications project manager and the anesthesia staff. Fire risk was assessed. The entire area of necrosis was incised and the abscess was drained. Any necrotic skin, subcutaneous tissue, muscle and bone was excised. The infection extended to the fourth and fifth metatarsals and portions of the bones were excised. The fifth toe was necrotic and was amputated. Any active bleeding was controlled using Bovie cautery. The wound was then thoroughly irrigated with copious amounts of sterile saline. At this point it was decided to place a VAC dressing within the wound. Black VAC sponge was utilized. The skin surrounding the wound was cleaned and dried and then [place] sponges were used to further prepare the skin and then the skin was covered with plastic dressing.. The piece of sponge that had been cut for the wound was placed within the wound. Plastic dressing was then used to cover the sponge/wound. A miami of plastic drape the size of a quarter was cut out exposing the underlying sponge material for tract pad placement. A tract pad was then placed over the exposed sponge and the tubing from the tract pad was attached to the VAC machine. The machine was started and a good seal with no leaks was present. Total number of sponges placed: 1 Salazar was then taken back to the ICU in her preoperative medical condition. Normal [facility] Phosphoruson 03-15-2021 Phosphate [Mass/Vol] 5.9 mg/dL High 2.5-4.5 [facility] Comment on above: Performed By: #### C MP3M, HEMDF, ICA, ABG, PHOS3 ####[address] [place], [place] TS GELon 03-15-2021 TS GEL ABO Group: A Rh, Gel: POS Antibody Screen Gel: NEG Normal [facility] Comment on above: Performed By: #### T SGL ####[facility] Vancomycin Troughon 03-15-20 Vancomycin Trough 35.6 ug/mL High 15.0-20.0 [facility] Comment on above: Result Comment: . Performed By: #### V ANCT ####[address] [place], [place] Add on test from HISon 03-14 Add on test from HIS Accepted Normal [facility] Comment on above: Result Comment: Spec imen available & acceptable for analysis. Performed By: #### N AURR, UNURR, CRTUR, ADDON ####[address] [place], [place] Arterial Blood Gaseson 03-14 CO2 [Moles/Vol] 28.0 mmol/L High 23.0-27.0 [facility] Comment on above: Performed By: #### A BG ####[address] [place], [place] HCO3 (Bld) [Moles/Vol] 26.4 mmol/L High 21.0-25.0 [facility] Comment on above: Performed By: #### A BG ####[address] [place], [place] Hemoglobin (Bld) [Mass/Vol] 11.5 g/dL Normal ScreenOnly [facility] Comment on above: Performed By: #### A BG ####[address] [place], [place] Oxygen (Bld) [Partial pressure] 143.3 mm[Hg] High 80.0-100.0 [facility] Comment on above: Performed By: #### A BG ####[address] [place], [place] pCO2 51.2 mm[Hg] High 35.0-45.0 [facility] Comment on above: Performed By: #### A BG ####[address] [place], [place] pH 7.330 Low 7.350-7.450 [facility] Comment on above: Performed By: #### A BG ####[address] Std Base Excess -0.1 mmol/L Normal -3.0-3.0 [facility] Comment on above: Performed By: #### A BG ####[address] [place], [place] CO2 [Moles/Vol] 28.5 mmol/L High 23.0-27.0 [facility] Comment on above: Performed By: #### A BG, CMP3M, PHOS3, HEMDF, PT, ICA ####[address] [place], [place] HCO3 (Bld) [Moles/Vol] 26.9 mmol/L High 21.0-25.0 [facility] Comment on above: Performed By: #### A BG, CMP3M, PHOS3, HEMDF, PT, ICA ####[address] [place], [place] Hemoglobin (Bld) [Mass/Vol] 11.1 g/dL Normal ScreenOnly [facility] Comment on above: Performed By: #### A BG, CMP3M, PHOS3, HEMDF, PT, ICA ####[address] [place], [place] Oxygen (Bld) [Partial pressure] 143.6 mm[Hg] High 80.0-100.0 [facility] Comment on above: Performed By: #### A BG, CMP3M, PHOS3, HEMDF, PT, ICA ####[address] [place], [place] Oxygen saturation in Blood 98.6 % Normal 95.0-100.0 [facility] Comment on above: Performed By: #### A BG ####[address] [address] [place], [place] Performed By: #### A BG, CMP3M, PHOS3, HEMDF, PT, ICA ####[address] pCO2 52.1 mm[Hg] High 35.0-45.0 [facility] Comment on above: Performed By: #### A BG, CMP3M, PHOS3, HEMDF, PT, ICA ####[address] pH 7.331 Low 7.350-7.450 [facility] Comment on above: Performed By: #### A BG, CMP3M, PHOS3, HEMDF, PT, ICA ####[address] Std Base Excess 0.4 mmol/L Normal -3.0-3.0 [facility] Comment on above: Performed By: #### A BG, CMP3M, PHOS3, HEMDF, PT, ICA ####[address] [address] [address] [place], [place] FIO2 35% Normal [facility] Comment on above: Performed By: #### A BG, CMP3M, PHOS3, HEMDF, PT, ICA ####[address] FIO2 35% Normal [facility] Comment on above: Performed By: #### A BG ####[address] [place], [place] CR Abdomen APon 03-14-2021 CR Abdomen AP Normal [facility] CR Chest Portableon 03-14-20 CR Chest Portable Normal [facility] CULTURE BLOODon 03-14-2021 Microscopic examination of blood, culture CULTURE BLOOD --> Status: F No growth at 5 days. Normal [facility] Comment on above: Performed By: #### C /BLD ####[address] [place], [place] CULTURE BLOOD (Two)on 2020 Microscopic examination of blood, culture CULTURE BLOOD (Two) --> Status: F No growth at 5 days. Normal [facility] Comment on above: Performed By: #### C /BLT ####[address] [place], [place] Calcium,Ionizedon 03-14-2021 Ionized Ca,Measured 4.10 mg/dL Low 4.30-5.20 [facility] Comment on above: Performed By: #### A BG, CMP3M, PHOS3, HEMDF, PT, ICA ####[facility] [employer] [id number] [place], [place] pH, Ionized Calcium 7.34 Normal 7.31-7.46 [facility] Comment on above: Performed By: #### A BG, CMP3M, PHOS3, HEMDF, PT, ICA ####[facility] [employer] [id number] [place], [place] Comp Panel with Mg Reflexon 03-14-2021 ALT [Catalytic activity/Vol] 10 U/L Normal 0-34 [facility] Comment on above: Result Comment: The ALT test is performed by an updated assay method.Please note that the reference intervals have beenchanged and are now sex specific. Performed By: #### A BG, CMP3M, PHOS3, HEMDF, PT, ICA ####[facility] [employer] [id number] [place], [place] Calcium [Mass/Vol] 8.2 mg/dL Low 8.4-10.4 [facility] Comment on above: Performed By: #### A BG, CMP3M, PHOS3, HEMDF, PT, ICA ####[address] [place], [place] Glucose [Mass/Vol] 213 mg/dL High 70-100 [facility] Comment on above: Performed By: #### A BG, CMP3M, PHOS3, HEMDF, PT, ICA ####[facility] [place], [place] Urea nitrogen [Mass/Vol] 17 mg/dL Normal 9-20 [facility] Comment on above: Performed By: #### A BG, CMP3M, PHOS3, HEMDF, PT, ICA ####[address] [place] ALP [Catalytic activity/Vol] 71 U/L Normal 38-126 [facility] Comment on above: Performed By: #### A BG, CMP3M, PHOS3, HEMDF, PT, ICA ####[address] [place] Anion gap [Moles/Vol] 6 mmol/L Normal 3-13 [facility] Comment on above: Performed By: #### A BG, CMP3M, PHOS3, HEMDF, PT, ICA ####[address] [place] AST [Catalytic activity/Vol] 21 U/L Normal 15-46 [facility] Comment on above: Performed By: #### A BG, CMP3M, PHOS3, HEMDF, PT, ICA ####[address] [place] Bilirubin [Mass/Vol] 0.4 mg/dL Normal 0.2-1.3 [facility] Comment on above: Performed By: #### A BG, CMP3M, PHOS3, HEMDF, PT, ICA ####[address] [place] CO2 [Moles/Vol] 28 mmol/L Normal 22-30 [facility] Comment on above: Performed By: #### A BG, CMP3M, PHOS3, HEMDF, PT, ICA ####[address] [place], [place] Creatinine [Mass/Vol] 2.37 mg/dL High 0.52-1.25 [facility] Comment on above: Performed By: #### A BG, CMP3M, PHOS3, HEMDF, PT, ICA ####[facility] [place] [address] GFR/1.73 sq M.predicted among blacks MDRD (S/P/Bld) [Vol rate/Area] 22.9 mL/min/{1.73_m2} Abnormal >60 [facility] Comment on above: Performed By: #### A BG, CMP3M, PHOS3, HEMDF, PT, ICA ####[facility] [place], [place] GFR/1.73 sq M.predicted among non-blacks MDRD (S/P/Bld) [Vol rate/Area] 19.7 mL/min/{1.73_m2} Abnormal >60 [facility] Comment on above: Result Comment: KDIG O guidelines provide the following GFR categories:Stage GFR(ml/min/1.73 m2) TermsG1 >=90 Normal or highG2 60-89 Mildly decreased*G3a 45-59 Mildly to moderately deozofjqyN2d 30-44 Moderately to severely decreasedG4 15-29 Severely decreasedG5 <15 Kidney failure*Relative to young adult level.In the absence of evidence of kidney damage, neither GFRcategory G1 nor G2 fulfill the criteria for CKD.The CKD-EPI equation is validated in individuals 18 yearsof age and older. Currently the best equation forestimating glomerular filtration rate (GFR) from serumcreatinine in children is the Bedside Ly equation.It is less accurate in patients with extremes of musclemass, restriction of dietary protein, ingestion of creatine,extra-renal metabolism of creatinine, or treatment withmedications that affect renal tubular creatinine secretion. Performed By: #### A BG, CMP3M, PHOS3, HEMDF, PT, ICA ####[facility] [employer] [id number] [place], [place] Protein [Mass/Vol] 5.9 g/dL Low 6.3-8.2 [facility] Comment on above: Performed By: #### A BG, CMP3M, PHOS3, HEMDF, PT, ICA ####[address] [place], [place] Potassium [Moles/Vol] 3.7 mmol/L Normal 3.5-5.1 [facility] Comment on above: Performed By: #### A BG, CMP3M, PHOS3, HEMDF, PT, ICA ####[address] [place] Sodium [Moles/Vol] 140 mmol/L Normal 135-145 [facility] Comment on above: Performed By: #### A BG, CMP3M, PHOS3, HEMDF, PT, ICA ####[address] [place] Albumin [Mass/Vol] 3.0 g/dL Low 3.5-5.0 [facility] Comment on above: Performed By: #### A BG, CMP3M, PHOS3, HEMDF, PT, ICA ####[address] [place], [place] Chloride [Moles/Vol] 106 mmol/L Normal 98-107 [facility] Comment on above: Performed By: #### A BG, CMP3M, PHOS3, HEMDF, PT, ICA ####[address] [place], [place] Complete Urinalysison 2020 Appearance (U) Turbid Abnormal Clear [facility] Comment on above: Result Comment: . Performed By: #### C UA2 ####[address] [place], [place] Bacteria Moderate Abnormal Negative [facility] Comment on above: Result Comment: . Performed By: #### C UA2 ####[address] [place], [place] Bilirubin,Urine Negative Normal Negative [facility] Comment on above: Result Comment: . Performed By: #### C UA2 ####[address] [place], [place] Color (U) Yellow Normal Lt. Yellow [facility] Comment on above: Result Comment: . Performed By: #### C UA2 ####[address] [place], [place] Glucose Ql (U) Normal Normal Normal (<70) [facility] Comment on above: Result Comment: . Performed By: #### C UA2 ####[address] [place], [place] Ketone,Urine Negative Normal Negative [facility] Comment on above: Result Comment: . Performed By: #### C UA2 ####[address] [address] [address] [place], [place] Leukocytes,Urine 500 Jimenez/uL Abnormal Negative [facility] Comment on above: Result Comment: . Performed By: #### C UA2 ####[address] [place], [place] Nitrites,Urine Negative Normal Negative [facility] Comment on above: Result Comment: . Performed By: #### C UA2 ####[address] [place], [place] Occult Blood,Urine > 1.0 Abnormal Negative [facility] Comment on above: Result Comment: . Performed By: #### C UA2 ####[address] [place], [place] pH,Urine 6.0 Normal 5.0-8.0 [facility] Comment on above: Result Comment: . Performed By: #### C UA2 ####[address] [place], [place] Protein (U) [Mass/Vol] 200 mg/dL Abnormal Negative [facility] Comment on above: Result Comment: . Performed By: #### C UA2 ####[address] [place], [place] RBC, Urine 11 - 25 Abnormal 0-2 [facility] Comment on above: Result Comment: . Performed By: #### C UA2 ####[address] [place], [place] Specific [place],Urine 1.010 Normal 1.005 - 1.030 [facility] Comment on above: Result Comment: . Performed By: #### C UA2 ####[address] [place], [place] Squamous Epithelial Negative Normal 3-5 [facility] Comment on above: Result Comment: . Performed By: #### C UA2 ####[address] [place], [place] Urobilinogen,Urine Normal Normal Normal (0-1) [facility] Comment on above: Result Comment: . Performed By: #### C UA2 ####[address] [address] [place], [place] WBC LM.HPF (Urine sed) [#/Area] /[HPF] Abnormal 0-5 [facility] Comment on above: Result Comment: . Performed By: #### C UA2 ####[address] [place], [place] White Blood Cell Clump Moderate Abnormal Negative [facility] Comment on above: Result Comment: . Performed By: #### C UA2 ####[address] [address] [place], [place] Yeast Few Abnormal Negative [facility] Comment on above: Result Comment: . Performed By: #### C UA2 ####[address] [address] [place], [place] Creatinine, Ur Randomon 03-02 Creatinine, Ur Random < 3.2 Normal No Range [facility] Comment on above: Performed By: #### N AURR, UNURR, CRTUR, ADDON ####[address] [place], [place] Glucose,Bedsideon 03-14-2021 Glucose [Mass/Vol] 104 mg/dL High 70-100 [facility] Comment on above: Result Comment: Test performed by glucose meter. Results may be 10%-15% lowerthan serum/plasma values. (CLIA ID [id number]) Performed By: #### B GLU ####[address] [place], [place] Glucose [Mass/Vol] 143 mg/dL High 70-100 [facility] Comment on above: Result Comment: Test performed by glucose meter. Results may be 10%-15% lowerthan serum/plasma values. (CLIA ID [id number]) Performed By: #### B GLU ####[facility] [employer] [address] [place], [place] Glucose [Mass/Vol] 163 mg/dL High 70-100 [facility] Comment on above: Result Comment: Test performed by glucose meter. Results may be 10%-15% lowerthan serum/plasma values. (CLIA ID [id number]) Performed By: #### B GLU ####[address] Glucose [Mass/Vol] 173 mg/dL High 70-100 [facility] Comment on above: Result Comment: Test performed by glucose meter. Results may be 10%-15% lowerthan serum/plasma values. (CLIA ID [id number]) Performed By: #### B GLU ####[address] Hemogram w/ Autodiffon 03-14 Abs Baso Cnt 0.0 10*3/uL Normal 0.0-0.2 [facility] Comment on above: Performed By: #### A BG, CMP3M, PHOS3, HEMDF, PT, ICA ####[address] [place], [place] Abs Neutrophile Cnt 4.8 10*3/uL Normal 1.8-7.0 [facility] Comment on above: Performed By: #### A BG, CMP3M, PHOS3, HEMDF, PT, ICA ####[address] Basophils/100 WBC (Bld) 0.7 % Normal 0.0-2.0 [facility] Comment on above: Performed By: #### A BG, CMP3M, PHOS3, HEMDF, PT, ICA ####[address] Eosinophils (Bld) [#/Vol] 0.1 10*3/uL Normal 0.0-0.5 [facility] Comment on above: Performed By: #### A BG, CMP3M, PHOS3, HEMDF, PT, ICA ####[address] [place], [place] Eosinophils/100 WBC (Bld) 1.7 % Normal 1.0-6.0 [facility] Comment on above: Performed By: #### A BG, CMP3M, PHOS3, HEMDF, PT, ICA ####[address] [place], [place] Erythrocyte distribution width (RBC) [Ratio] 16.9 % High 11.5-14.5 [facility] Comment on above: Performed By: #### A BG, CMP3M, PHOS3, HEMDF, PT, ICA ####[address] [place], [place] Granulocytes/100 WBC (Bld) 77.6 % Normal 40.0-80.0 [facility] Comment on above: Performed By: #### A BG, CMP3M, PHOS3, HEMDF, PT, ICA ####[address] [place], [place] Hematocrit (Bld) [Volume fraction] 31.1 % Low 35.0-47.0 [facility] Comment on above: Performed By: #### A BG, CMP3M, PHOS3, HEMDF, PT, ICA ####[address] [place], [place] Hemoglobin (Bld) [Mass/Vol] 9.7 g/dL Low 11.7-16.0 [facility] Comment on above: Performed By: #### A BG, CMP3M, PHOS3, HEMDF, PT, ICA ####[address] [place], [place] Lymphocytes (Bld) [#/Vol] 0.8 10*3/uL Low 1.0-4.3 [facility] Comment on above: Performed By: #### A BG, CMP3M, PHOS3, HEMDF, PT, ICA ####[address] [place], [place] Lymphocytes/100 WBC (Bld) 12.8 % Low 20.0-40.0 [facility] Comment on above: Performed By: #### A BG, CMP3M, PHOS3, HEMDF, PT, ICA ####[address] [place], [place] MCH (RBC) [Entitic mass] 28.1 pg Normal 26.0-34.0 [facility] Comment on above: Performed By: #### A BG, CMP3M, PHOS3, HEMDF, PT, ICA ####[address] [place] MCHC 31.3 % Low 32.0-36.0 [facility] Comment on above: Performed By: #### A BG, CMP3M, PHOS3, HEMDF, PT, ICA ####[address] [place], [place] MCV (RBC) [Entitic vol] 89.8 fL Normal 79.0-98.0 [facility] Comment on above: Performed By: #### A BG, CMP3M, PHOS3, HEMDF, PT, ICA ####[address] [place], [place] Monocytes (Bld) [#/Vol] 0.4 10*3/uL Normal 0.0-0.8 [facility] Comment on above: Performed By: #### A BG, CMP3M, PHOS3, HEMDF, PT, ICA ####[address] Monocytes/100 WBC (Bld) 7.2 % Normal 2.0-10.0 [facility] Comment on above: Performed By: #### A BG, CMP3M, PHOS3, HEMDF, PT, ICA ####[address] [place], [place] Platelet mean volume (Bld) [Entitic vol] 9.7 fL Normal 7.4-10.4 [facility] Comment on above: Performed By: #### A BG, CMP3M, PHOS3, HEMDF, PT, ICA ####[address] [place], [place] Platelets (Bld) [#/Vol] 214 10*3/uL Normal 140-440 [facility] Comment on above: Performed By: #### A BG, CMP3M, PHOS3, HEMDF, PT, ICA ####[address] [place], [place] RBC (Bld) [#/Vol] 3.47 10*6/uL Low 3.80-5.20 [facility] Comment on above: Performed By: #### A BG, CMP3M, PHOS3, HEMDF, PT, ICA ####[address] [place], [place] WBC (Bld) [#/Vol] 6.2 10*3/uL Normal 3.6-10.7 [facility] Comment on above: Performed By: #### A BG, CMP3M, PHOS3, HEMDF, PT, ICA ####[address] [place], [place] Magnesiumon 03-14-2021 Magnesium [Mass/Vol] 1.9 mg/dL Normal 1.6-2.3 [facility] Comment on above: Performed By: #### M G3, CMP3 ####[address] Phosphoruson 03-14-2021 Phosphate [Mass/Vol] 5.6 mg/dL High 2.5-4.5 [facility] Comment on above: Performed By: #### A BG, CMP3M, PHOS3, HEMDF, PT, ICA ####[address] [place], [place] Prothrombin Timeon INR 1.1 Normal 0.9-1.1 [facility] Comment on above: Result Comment: Juan mmended Anticoagulant Therapy: SEE BELOW----- INR of 2.0 - 3.0 : - Prophylaxis of Venous Thrombosis (high-risk surgery) - Treatment of Venous Thrombosis - Treatment of Pulmonary Embolism (Includes tissue heart valves, Acute Myocardial Infarction to prevent systemic embolism, Valvular Heart Disease, and Atrial Fibrillation)----- INR of 2.5 - 3.5 : - Mechanical Prosthetic Valves (high risk) - If oral anticoagulant therapy is used to prevent Myocardial Infarction Performed By: #### A BG, CMP3M, PHOS3, HEMDF, PT, ICA ####[address] [place], [place] PT Coag (PPP) [Time] 11.4 s Normal 9.0-12.0 [facility] Comment on above: Result Comment: . Performed By: #### A BG, CMP3M, PHOS3, HEMDF, PT, ICA ####[address] Sodium, Ur Randomon 03-14-20 21 Sodium [Moles/Vol] 157 mmol/L High 30-90 [facility] Comment on above: Performed By: #### N AURR, UNURR, CRTUR, ADDON ####[address] [address] [place], [place] US Retroperitoneal Completeo n 03-14-2021 US Retroperitoneal Complete Normal [facility] Urea Nitrogen,Ur Randomon Urea Nitrogen,Ur Random < 67 Normal No Range [facility] Comment on above: Performed By: #### N AURR, UNURR, CRTUR, ADDON ####[address] [address] [place], [place] Add on test from HISon 03-13 Add on test from HIS Rejected Normal [facility] Comment on above: Result Comment: No s pecimen available for addon.LFT added, ammonia needs green sent on ice Performed By: #### A DDON ####[address] Ammoniaon 03-13-2021 Ammonia (P) [Mass/Vol] ug/dL Normal 9-30 [facility] Comment on above: Performed By: #### V BG, NH33 ####[address] [place], [place] Arterial Blood Gaseson 03-13 CO2 [Moles/Vol] 28.6 mmol/L High 23.0-27.0 [facility] Comment on above: Performed By: #### A BG ####[address] [place], [place] HCO3 (Bld) [Moles/Vol] 26.9 mmol/L High 21.0-25.0 [facility] Comment on above: Performed By: #### A BG ####[address] Hemoglobin (Bld) [Mass/Vol] 12.3 g/dL Normal ScreenOnly [facility] Comment on above: Performed By: #### A BG ####[address] Oxygen (Bld) [Partial pressure] 122.2 mm[Hg] High 80.0-100.0 [facility] Comment on above: Performed By: #### A BG ####[address] Oxygen saturation in Blood 98.1 % Normal 95.0-100.0 [facility] Comment on above: Performed By: #### A BG ####[address] pCO2 56.1 mm[Hg] High 35.0-45.0 [facility] Comment on above: Performed By: #### A BG ####[address] pH 7.299 Low 7.350-7.450 [facility] Comment on above: Performed By: #### A BG ####[address] Std Base Excess -0.4 mmol/L Normal -3.0-3.0 [facility] Comment on above: Performed By: #### A BG ####[address] FIO2 35%% Normal [facility] Comment on above: Performed By: #### A BG ####[address] CO2 [Moles/Vol] 30.3 mmol/L High 23.0-27.0 [facility] Comment on above: Performed By: #### A BG ####[address] HCO3 (Bld) [Moles/Vol] 28.6 mmol/L High 21.0-25.0 [facility] Comment on above: Performed By: #### A BG ####[address] Hemoglobin (Bld) [Mass/Vol] 11.2 g/dL Normal ScreenOnly [facility] Comment on above: Performed By: #### A BG ####[address] Oxygen (Bld) [Partial pressure] 84.1 mm[Hg] Normal 80.0-100.0 [facility] Comment on above: Performed By: #### A BG ####[address] Oxygen saturation in Blood 96.0 % Normal 95.0-100.0 [facility] Comment on above: Performed By: #### A BG ####[address] pCO2 54.6 mm[Hg] High 35.0-45.0 [facility] Comment on above: Performed By: #### A BG ####[address] pH 7.337 Low 7.350-7.450 [facility] Comment on above: Performed By: #### A BG ####[address] Std Base Excess 1.9 mmol/L Normal -3.0-3.0 [facility] Comment on above: Performed By: #### A BG ####[facility] [address] [place] [address] FIO2 No data Normal [facility] Comment on above: Performed By: #### A BG ####[address] [place], [place] Blood Gas,Venouson 1 CO2 [Moles/Vol] 32.2 mmol/L High 24.0-28.0 [facility] Comment on above: Performed By: #### V BG, NH33 ####[facility] [id number] [place], [place] HCO3 (Bld) [Moles/Vol] 30.3 mmol/L High 23.0-27.0 [facility] Comment on above: Performed By: #### V BG, NH33 ####[address] [place] Hemoglobin (Bld) [Mass/Vol] 11.5 g/dL Normal ScreenOnly [facility] Comment on above: Performed By: #### V BG, NH33 ####[facility] [address] [place], [place] Oxygen (Bld) [Partial pressure] 40.9 mm[Hg] Normal 30.0-50.0 [facility] Comment on above: Performed By: #### V BG, NH33 ####[facility] [address] [place], [place] Oxygen saturation in Blood 71.4 % Normal 60.0-80.0 [facility] Comment on above: Performed By: #### V BG, NH33 ####[facility] [address] [place], [place] pCO2 63.5 mm[Hg] High 40.0-55.0 [facility] Comment on above: Performed By: #### V BG, NH33 ####[facility] [address] [place], [place] pH 7.296 Low 7.330-7.430 [facility] Comment on above: Performed By: #### V BG, NH33 ####[address] [place], [place] Std Base Excess 2.5 mmol/L Normal -3.0-3.0 [facility] Comment on above: Performed By: #### V BG, NH33 ####[address] [place] FIO2 35% Normal [facility] Comment on above: Performed By: #### V BG, NH33 ####[address] [place], [place] CR Chest Portableon 03-13-20 CR Chest Portable Normal [facility] Comp Metabolic Panelon 03-13 Calcium [Mass/Vol] 8.5 mg/dL Normal 8.4-10.4 [facility] Comment on above: Performed By: #### M G3, CMP3 ####[address] [facility] [place] ALP [Catalytic activity/Vol] 82 U/L Normal 38-126 [facility] Comment on above: Performed By: #### M G3, CMP3 ####[address] [place], [place] ALT [Catalytic activity/Vol] 12 U/L Normal 0-34 [facility] Comment on above: Result Comment: The ALT test is performed by an updated assay method.Please note that the reference intervals have beenchanged and are now sex specific. Performed By: #### M G3, CMP3 ####[address] [place], [place] Anion gap [Moles/Vol] 7 mmol/L Normal 3-13 [facility] Comment on above: Performed By: #### M G3, CMP3 ####[address] [facility], [place] AST [Catalytic activity/Vol] 20 U/L Normal 15-46 [facility] Comment on above: Performed By: #### M G3, CMP3 ####[address] [facility], [place] Bilirubin [Mass/Vol] 0.5 mg/dL Normal 0.2-1.3 [facility] Comment on above: Performed By: #### M G3, CMP3 ####[facility] [place], [place] CO2 [Moles/Vol] 29 mmol/L Normal 22-30 [facility] Comment on above: Performed By: #### M G3, CMP3 ####[address] [place], [place] Creatinine [Mass/Vol] 2.27 mg/dL High 0.52-1.25 [facility] Comment on above: Performed By: #### M G3, CMP3 ####[address] [place] [address] GFR/1.73 sq M.predicted among blacks MDRD (S/P/Bld) [Vol rate/Area] 24.1 mL/min/{1.73_m2} Abnormal >60 [facility] Comment on above: Performed By: #### M G3, CMP3 ####[address] [place], [place] GFR/1.73 sq M.predicted among non-blacks MDRD (S/P/Bld) [Vol rate/Area] 20.8 mL/min/{1.73_m2} Abnormal >60 [facility] Comment on above: Result Comment: KDIG O guidelines provide the following GFR categories:Stage GFR(ml/min/1.73 m2) TermsG1 >=90 Normal or highG2 60-89 Mildly decreased*G3a 45-59 Mildly to moderately [id number] 30-44 Moderately to severely decreasedG4 15-29 Severely decreasedG5 <15 Kidney failure*Relative to young adult level.In the absence of evidence of kidney damage, neither GFRcategory G1 nor G2 fulfill the criteria for CKD.The CKD-EPI equation is validated in individuals 18 yearsof age and older. Currently the best equation forestimating glomerular filtration rate (GFR) from serumcreatinine in children is the Bedside Ly equation.It is less accurate in patients with extremes of musclemass, restriction of dietary protein, ingestion of creatine,extra-renal metabolism of creatinine, or treatment withmedications that affect renal tubular creatinine secretion. Performed By: #### M G3, CMP3 ####[address] [facility] [place] [address] Glucose [Mass/Vol] 194 mg/dL High 70-100 [facility] Comment on above: Performed By: #### M G3, CMP3 ####[address] [facility] [place] [address] Protein [Mass/Vol] 6.6 g/dL Normal 6.3-8.2 [facility] Comment on above: Performed By: #### Gerald G3, CMP3 ####[address] [facility] [place] [address] Urea nitrogen [Mass/Vol] 16 mg/dL Normal 9-20 [facility] Comment on above: Performed By: #### Gerald G3, CMP3 ####[address] [facility] [place] [address] Potassium [Moles/Vol] 4.0 mmol/L Normal 3.5-5.1 [facility] Comment on above: Performed By: #### Gerald G3, CMP3 ####[address] [facility] [place] [address] Albumin [Mass/Vol] 3.4 g/dL Low 3.5-5.0 [facility] Comment on above: Performed By: #### Gerald G3, CMP3 ####[address] [facility] [place] [address] Chloride [Moles/Vol] 106 mmol/L Normal 98-107 [facility] Comment on above: Performed By: #### Gerald G3, CMP3 ####[address] [facility] [place] [address] Sodium [Moles/Vol] 142 mmol/L Normal 135-145 [facility] Comment on above: Performed By: #### Gerald G3, CMP3 ####[address] [facility] [place] [address] Comp Panel with Mg Reflexon 03-13-2021 Calcium [Mass/Vol] 6.9 mg/dL Low 8.4-10.4 [facility] Comment on above: Performed By: #### Gerald G3, LFT3, HEMDF, CMP3M ####[address] [place], [place] ALP [Catalytic activity/Vol] 50 U/L Normal 38-126 [facility] Comment on above: Performed By: #### M G3, LFT3, HEMDF, CMP3M ####[address] [address] [place], [place] ALT [Catalytic activity/Vol] 11 U/L Normal 0-34 [facility] Comment on above: Result Comment: The ALT test is performed by an updated assay method.Please note that the reference intervals have beenchanged and are now sex specific. Performed By: #### M G3, LFT3, HEMDF, CMP3M ####[address] Anion gap [Moles/Vol] 5 mmol/L Normal 3-13 [facility] Comment on above: Performed By: #### M G3, LFT3, HEMDF, CMP3M ####[address] AST [Catalytic activity/Vol] 20 U/L Normal 15-46 [facility] Comment on above: Performed By: #### M G3, LFT3, HEMDF, CMP3M ####[address] Bilirubin [Mass/Vol] 0.5 mg/dL Normal 0.2-1.3 [facility] Comment on above: Performed By: #### M G3, LFT3, HEMDF, CMP3M ####[address] CO2 [Moles/Vol] 22 mmol/L Normal 22-30 [facility] Comment on above: Performed By: #### M G3, LFT3, HEMDF, CMP3M ####[address] Creatinine [Mass/Vol] 1.29 mg/dL High 0.52-1.25 [facility] Comment on above: Performed By: #### M G3, LFT3, HEMDF, CMP3M ####[employer] [place] [address] GFR/1.73 sq M.predicted among blacks MDRD (S/P/Bld) [Vol rate/Area] 47.7 mL/min/{1.73_m2} Abnormal >60 [facility] Comment on above: Performed By: #### M G3, LFT3, HEMDF, CMP3M ####[facility] [place] [address] GFR/1.73 sq M.predicted among non-blacks MDRD (S/P/Bld) [Vol rate/Area] 41.2 mL/min/{1.73_m2} Abnormal >60 [facility] Comment on above: Result Comment: KDIG O guidelines provide the following GFR categories:Stage GFR(ml/min/1.73 m2) TermsG1 >=90 Normal or highG2 60-89 Mildly decreased*G3a 45-59 Mildly to moderately [id number] 30-44 Moderately to severely decreasedG4 15-29 Severely decreasedG5 <15 Kidney failure*Relative to young adult level.In the absence of evidence of kidney damage, neither GFRcategory G1 nor G2 fulfill the criteria for CKD.The CKD-EPI equation is validated in individuals 18 yearsof age and older. Currently the best equation forestimating glomerular filtration rate (GFR) from serumcreatinine in children is the Bedside Ly equation.It is less accurate in patients with extremes of musclemass, restriction of dietary protein, ingestion of creatine,extra-renal metabolism of creatinine, or treatment withmedications that affect renal tubular creatinine secretion. Performed By: #### M G3, LFT3, HEMDF, CMP3M ####[address] [place] [address] Glucose [Mass/Vol] 212 mg/dL High 70-100 [facility] Comment on above: Performed By: #### M G3, LFT3, HEMDF, CMP3M ####[address] [place] [address] Protein [Mass/Vol] 5.2 g/dL Low 6.3-8.2 [facility] Comment on above: Performed By: #### M G3, LFT3, HEMDF, CMP3M ####[address] [facility] [place] [address] Urea nitrogen [Mass/Vol] 12 mg/dL Normal 9-20 [facility] Comment on above: Performed By: #### M G3, LFT3, HEMDF, CMP3M ####[address] [facility] [place] [address] Potassium [Moles/Vol] 3.4 mmol/L Low 3.5-5.1 [facility] Comment on above: Performed By: #### M G3, LFT3, HEMDF, CMP3M ####[address] [facility] [place] [address] Albumin [Mass/Vol] 2.5 g/dL Low 3.5-5.0 [facility] Comment on above: Performed By: #### M G3, LFT3, HEMDF, CMP3M ####[address] [facility] [place] [address] Chloride [Moles/Vol] 112 mmol/L High 98-107 [facility] Comment on above: Performed By: #### M G3, LFT3, HEMDF, CMP3M ####[address] [facility] [place] [address] Sodium [Moles/Vol] 139 mmol/L Normal 135-145 [facility] Comment on above: Performed By: #### M G3, LFT3, HEMDF, CMP3M ####[address] [facility] [place] [address] Glucose,Bedsideon 03-13-2021 Glucose [Mass/Vol] 173 mg/dL High 70-100 [facility] Comment on above: Result Comment: Test performed by glucose meter. Results may be 10%-15% lowerthan serum/plasma values. (CLIA ID [id number]) Performed By: #### B GLU ####[address] [facility] [place] [address] Glucose [Mass/Vol] 180 mg/dL High 70-100 [facility] Comment on above: Result Comment: Test performed by glucose meter. Results may be 10%-15% lowerthan serum/plasma values. (CLIA ID [id number]) Performed By: #### B GLU ####[facility] [employer] [id number] [place], [place] Glucose [Mass/Vol] 202 mg/dL High 70-100 [facility] Comment on above: Result Comment: Test performed by glucose meter. Results may be 10%-15% lowerthan serum/plasma values. (CLIA ID [id number]) Performed By: #### B GLU ####[facility] [employer] [address] Hemogram w/ Autodiffon 03-13 Abs Baso Cnt 0.1 10*3/uL Normal 0.0-0.2 [facility] Comment on above: Performed By: #### M G3, LFT3, HEMDF, CMP3M ####[facility] [employer] [address] Abs Neutrophile Cnt 3.2 10*3/uL Normal 1.8-7.0 [facility] Comment on above: Performed By: #### M G3, LFT3, HEMDF, CMP3M ####[facility] [employer] [address] Basophils/100 WBC (Bld) 1.0 % Normal 0.0-2.0 [facility] Comment on above: Performed By: #### M G3, LFT3, HEMDF, CMP3M ####[facility] [employer] [address] Eosinophils (Bld) [#/Vol] 0.3 10*3/uL Normal 0.0-0.5 [facility] Comment on above: Performed By: #### M G3, LFT3, HEMDF, CMP3M ####[facility] [employer] [address] Eosinophils/100 WBC (Bld) 6.3 % High 1.0-6.0 [facility] Comment on above: Performed By: #### M G3, LFT3, HEMDF, CMP3M ####[address] Erythrocyte distribution width (RBC) [Ratio] 17.0 % High 11.5-14.5 [facility] Comment on above: Performed By: #### M G3, LFT3, HEMDF, CMP3M ####[address] Granulocytes/100 WBC (Bld) 62.8 % Normal 40.0-80.0 [facility] Comment on above: Performed By: #### M G3, LFT3, HEMDF, CMP3M ####[address] Hematocrit (Bld) [Volume fraction] 27.7 % Low 35.0-47.0 [facility] Comment on above: Performed By: #### M G3, LFT3, HEMDF, CMP3M ####[address] Hemoglobin (Bld) [Mass/Vol] 8.7 g/dL Low 11.7-16.0 [facility] Comment on above: Performed By: #### M G3, LFT3, HEMDF, CMP3M ####[address] Lymphocytes (Bld) [#/Vol] 1.0 10*3/uL Normal 1.0-4.3 [facility] Comment on above: Performed By: #### M G3, LFT3, HEMDF, CMP3M ####[address] Lymphocytes/100 WBC (Bld) 19.5 % Low 20.0-40.0 [facility] Comment on above: Performed By: #### M G3, LFT3, HEMDF, CMP3M ####[address] MCH (RBC) [Entitic mass] 28.0 pg Normal 26.0-34.0 [facility] Comment on above: Performed By: #### M G3, LFT3, HEMDF, CMP3M ####[address] [place], [place] MCHC 31.3 % Low 32.0-36.0 [facility] Comment on above: Performed By: #### M G3, LFT3, HEMDF, CMP3M ####[address] [place], [place] MCV (RBC) [Entitic vol] 89.6 fL Normal 79.0-98.0 [facility] Comment on above: Performed By: #### M G3, LFT3, HEMDF, CMP3M ####[address] Monocytes (Bld) [#/Vol] 0.5 10*3/uL Normal 0.0-0.8 [facility] Comment on above: Performed By: #### M G3, LFT3, HEMDF, CMP3M ####[address] Monocytes/100 WBC (Bld) 10.4 % High 2.0-10.0 [facility] Comment on above: Performed By: #### M G3, LFT3, HEMDF, CMP3M ####[address] Platelet mean volume (Bld) [Entitic vol] 9.8 fL Normal 7.4-10.4 [facility] Comment on above: Performed By: #### M G3, LFT3, HEMDF, CMP3M ####[address] Platelets (Bld) [#/Vol] 197 10*3/uL Normal 140-440 [facility] Comment on above: Performed By: #### M G3, LFT3, HEMDF, CMP3M ####[address] RBC (Bld) [#/Vol] 3.09 10*6/uL Low 3.80-5.20 [facility] Comment on above: Performed By: #### M G3, LFT3, HEMDF, CMP3M ####[address] [place], [place] WBC (Bld) [#/Vol] 5.1 10*3/uL Normal 3.6-10.7 [facility] Comment on above: Performed By: #### M G3, LFT3, HEMDF, CMP3M ####[address] [place], [place] Hepatic Functionon Bilirubin.indirect [Mass/Vol] 0.0 mg/dL Normal 0.0-0.3 [facility] Comment on above: Performed By: #### M G3, LFT3, HEMDF, CMP3M ####[address] Magnesiumon 03-13-2021 Magnesium [Mass/Vol] 1.6 mg/dL Normal 1.6-2.3 [facility] Comment on above: Performed By: #### M G3, LFT3, HEMDF, CMP3M ####[address] Vancomycin Troughon 03-13-20 21 Vancomycin Trough 22.1 ug/mL High 15.0-20.0 [facility] Comment on above: Result Comment: . Performed By: #### V ANCT ####[address] Comp Panel with Mg Reflexon 03-12-2021 ALP [Catalytic activity/Vol] 76 U/L Normal 38-126 [facility] Comment on above: Performed By: #### C MP3M, HEMDF ####[address] ALT [Catalytic activity/Vol] 11 U/L Normal 0-34 [facility] Comment on above: Result Comment: The ALT test is performed by an updated assay method.Please note that the reference intervals have beenchanged and are now sex specific. Performed By: #### C MP3M, HEMDF ####[address] [place], [place] Calcium [Mass/Vol] 8.3 mg/dL Low 8.4-10.4 [facility] Comment on above: Performed By: #### C MP3M, HEMDF ####[facility] [place] Glucose [Mass/Vol] 202 mg/dL High 70-100 [facility] Comment on above: Performed By: #### C MP3M, HEMDF ####[facility] [facility] [place] Protein [Mass/Vol] 6.0 g/dL Low 6.3-8.2 [facility] Comment on above: Performed By: #### C MP3M, HEMDF ####[address] [place], [place] Urea nitrogen [Mass/Vol] 10 mg/dL Normal 9-20 [facility] Comment on above: Performed By: #### C MP3M, HEMDF ####[address] [place], [place] Anion gap [Moles/Vol] 5 mmol/L Normal 3-13 [facility] Comment on above: Performed By: #### C MP3M, HEMDF ####[address] [place], [place] AST [Catalytic activity/Vol] 19 U/L Normal 15-46 [facility] Comment on above: Performed By: #### C MP3M, HEMDF ####[address] [place], [place] Bilirubin [Mass/Vol] 0.5 mg/dL Normal 0.2-1.3 [facility] Comment on above: Performed By: #### C MP3M, HEMDF ####[address] [place], [place] CO2 [Moles/Vol] 29 mmol/L Normal 22-30 [facility] Comment on above: Performed By: #### C MP3M, HEMDF ####[address] [employer] [place] Creatinine [Mass/Vol] 0.84 mg/dL Normal 0.52-1.25 [facility] Comment on above: Performed By: #### C MP3M, HEMDF ####[address] [place] [address] GFR/1.73 sq M.predicted among blacks MDRD (S/P/Bld) [Vol rate/Area] 80.2 mL/min/{1.73_m2} Normal >60 [facility] Comment on above: Performed By: #### C MP3M, HEMDF ####[address] [place] [address] GFR/1.73 sq M.predicted among non-blacks MDRD (S/P/Bld) [Vol rate/Area] 69.2 mL/min/{1.73_m2} Normal >60 [facility] Comment on above: Result Comment: KDIG O guidelines provide the following GFR categories:Stage GFR(ml/min/1.73 m2) TermsG1 >=90 Normal or highG2 60-89 Mildly decreased*G3a 45-59 Mildly to moderately [id number] 30-44 Moderately to severely decreasedG4 15-29 Severely decreasedG5 <15 Kidney failure*Relative to young adult level.In the absence of evidence of kidney damage, neither GFRcategory G1 nor G2 fulfill the criteria for CKD.The CKD-EPI equation is validated in individuals 18 yearsof age and older. Currently the best equation forestimating glomerular filtration rate (GFR) from serumcreatinine in children is the Bedside Ly equation.It is less accurate in patients with extremes of musclemass, restriction of dietary protein, ingestion of creatine,extra-renal metabolism of creatinine, or treatment withmedications that affect renal tubular creatinine secretion. Performed By: #### C MP3M, HEMDF ####[address] [place] [address] Albumin [Mass/Vol] 3.0 g/dL Low 3.5-5.0 [facility] Comment on above: Performed By: #### C MP3M, HEMDF ####[employer] [address] [place] [address] Potassium [Moles/Vol] 3.6 mmol/L Normal 3.5-5.1 [facility] Comment on above: Performed By: #### C MP3M, HEMDF ####[facility] [address] [place] [address] Sodium [Moles/Vol] 140 mmol/L Normal 135-145 [facility] Comment on above: Performed By: #### C MP3M, HEMDF ####[facility] [address] [place] [address] Chloride [Moles/Vol] 105 mmol/L Normal 98-107 [facility] Comment on above: Performed By: #### C MP3M, HEMDF ####[address] [place] [address] Glucose,Bedsideon 03-12-2021 Glucose [Mass/Vol] 255 mg/dL High 70-100 [facility] Comment on above: Result Comment: Test performed by glucose meter. Results may be 10%-15% lowerthan serum/plasma values. (CLIA ID [id number]) Performed By: #### B GLU ####[address] [place] [address] Glucose [Mass/Vol] 200 mg/dL High 70-100 [facility] Comment on above: Result Comment: manager mac Notified;Test performed by glucose meter. Results may be 10%-15% lowerthan serum/plasma values. (CLIA ID [id number]) Performed By: #### B GLU ####[facility] [employer] [address] [place] [address] Glucose [Mass/Vol] 200 mg/dL High 70-100 [facility] Comment on above: Result Comment: manager mac Notified;Test performed by glucose meter. Results may be 10%-15% lowerthan serum/plasma values. (CLIA ID [id number]) Performed By: #### B GLU ####[address] [place] [address] Glucose [Mass/Vol] 166 mg/dL High 70-100 [facility] Comment on above: Result Comment: manager mac Notified;Test performed by glucose meter. Results may be 10%-15% lowerthan serum/plasma values. (CLIA ID [id number]) Performed By: #### B GLU ####[address] Hemogram w/ Autodiffon 03-12 Abs Baso Cnt 0.0 10*3/uL Normal 0.0-0.2 [facility] Comment on above: Performed By: #### C MP3M, HEMDF ####[address] Abs Neutrophile Cnt 2.9 10*3/uL Normal 1.8-7.0 [facility] Comment on above: Performed By: #### C MP3M, HEMDF ####[address] [place], [place] Basophils/100 WBC (Bld) 0.6 % Normal 0.0-2.0 [facility] Comment on above: Performed By: #### C MP3M, HEMDF ####[address] Eosinophils (Bld) [#/Vol] 0.4 10*3/uL Normal 0.0-0.5 [facility] Comment on above: Performed By: #### C MP3M, HEMDF ####[address] Eosinophils/100 WBC (Bld) 7.8 % High 1.0-6.0 [facility] Comment on above: Performed By: #### C MP3M, HEMDF ####[address] Erythrocyte distribution width (RBC) [Ratio] 16.8 % High 11.5-14.5 [facility] Comment on above: Performed By: #### C MP3M, HEMDF ####[address] Granulocytes/100 WBC (Bld) 56.1 % Normal 40.0-80.0 [facility] Comment on above: Performed By: #### C MP3M, HEMDF ####[address] [place], [place] Hematocrit (Bld) [Volume fraction] 31.2 % Low 35.0-47.0 [facility] Comment on above: Performed By: #### C MP3M, HEMDF ####[address] [place] Hemoglobin (Bld) [Mass/Vol] 10.0 g/dL Low 11.7-16.0 [facility] Comment on above: Performed By: #### C MP3M, HEMDF ####[address] [place], [place] Lymphocytes (Bld) [#/Vol] 1.4 10*3/uL Normal 1.0-4.3 [facility] Comment on above: Performed By: #### C MP3M, HEMDF ####[address] [place], [place] Lymphocytes/100 WBC (Bld) 26.9 % Normal 20.0-40.0 [facility] Comment on above: Performed By: #### C MP3M, HEMDF ####[address] [place], [place] MCH (RBC) [Entitic mass] 28.4 pg Normal 26.0-34.0 [facility] Comment on above: Performed By: #### C MP3M, HEMDF ####[address] [place] MCHC 31.9 % Low 32.0-36.0 [facility] Comment on above: Performed By: #### C MP3M, HEMDF ####[address] [place] MCV (RBC) [Entitic vol] 89.1 fL Normal 79.0-98.0 [facility] Comment on above: Performed By: #### C MP3M, HEMDF ####[address] [place], [place] Monocytes (Bld) [#/Vol] 0.4 10*3/uL Normal 0.0-0.8 [facility] Comment on above: Performed By: #### C MP3Gerald, HEMDF ####[facility] [employer] [id number] [place], [place] Monocytes/100 WBC (Bld) 8.6 % Normal 2.0-10.0 [facility] Comment on above: Performed By: #### C MP3M, HEMDF ####[address] [place], [place] Platelet mean volume (Bld) [Entitic vol] 9.8 fL Normal 7.4-10.4 [facility] Comment on above: Performed By: #### C MP3Gerald, HEMDF ####[address] [place] Platelets (Bld) [#/Vol] 206 10*3/uL Normal 140-440 [facility] Comment on above: Performed By: #### C MP3Gerald, HEMDF ####[facility] [employer] [id number] [place], [place] RBC (Bld) [#/Vol] 3.51 10*6/uL Low 3.80-5.20 [facility] Comment on above: Performed By: #### C MP3M, HEMDF ####[address] [place] WBC (Bld) [#/Vol] 5.2 10*3/uL Normal 3.6-10.7 [facility] Comment on above: Performed By: #### C MP3M, HEMDF ####[facility] [employer] [id number] [place], [place] Comp Panel with Mg Reflexon 03-11-2021 ALP [Catalytic activity/Vol] 62 U/L Normal 38-126 [facility] Comment on above: Performed By: #### C MP3M, HEMDF ####[facility] [employer] [id number] [place], [place] ALT [Catalytic activity/Vol] 10 U/L Normal 0-34 [facility] Comment on above: Result Comment: The ALT test is performed by an updated assay method.Please note that the reference intervals have beenchanged and are now sex specific. Performed By: #### C MP3Gerald HEMDF ####[address] [employer] AST [Catalytic activity/Vol] 22 U/L Normal 15-46 [facility] Comment on above: Performed By: #### C MP3M, HEMDF ####[address] [employer] [facility] Calcium [Mass/Vol] 8.2 mg/dL Low 8.4-10.4 [facility] Comment on above: Performed By: #### C MP3Gerald HEMDF ####[address] [employer], [place] Glucose [Mass/Vol] 213 mg/dL High 70-100 [facility] Comment on above: Performed By: #### C MP3Gerald HEMDF ####[address] [employer], [place] Protein [Mass/Vol] 5.6 g/dL Low 6.3-8.2 [facility] Comment on above: Performed By: #### C ALTON3Gerald HEMDF ####[address] [employer], [place] Urea nitrogen [Mass/Vol] 9 mg/dL Normal 9-20 [facility] Comment on above: Performed By: #### C MP3M HEMDF ####[address] [employer], [place] Anion gap [Moles/Vol] 4 mmol/L Normal 3-13 [facility] Comment on above: Performed By: #### C MP3M, HEMDF ####[address] [employer] [facility] Bilirubin [Mass/Vol] 0.6 mg/dL Normal 0.2-1.3 [facility] Comment on above: Performed By: #### C MP3M, HEMDF ####[address] [employer] [place] CO2 [Moles/Vol] 28 mmol/L Normal 22-30 [facility] Comment on above: Performed By: #### C MP3M, HEMDF ####[employer] [id number] [place], [place] Creatinine [Mass/Vol] 0.66 mg/dL Normal 0.52-1.25 [facility] Comment on above: Performed By: #### C MP3M, HEMDF ####[facility] [employer] [id number] [place], [place] GFR/1.73 sq M.predicted among blacks MDRD (S/P/Bld) [Vol rate/Area] mL/min/{1.73_m2} Normal >60 [facility] Comment on above: Performed By: #### C MP3M, HEMDF ####[facility] [employer] [id number] [place], [place] GFR/1.73 sq M.predicted among non-blacks MDRD (S/P/Bld) [Vol rate/Area] 87.9 mL/min/{1.73_m2} Normal >60 [facility] Comment on above: Result Comment: KDIG O guidelines provide the following GFR categories:Stage GFR(ml/min/1.73 m2) TermsG1 >=90 Normal or highG2 60-89 Mildly decreased*G3a 45-59 Mildly to moderately [id number] 30-44 Moderately to severely decreasedG4 15-29 Severely decreasedG5 <15 Kidney failure*Relative to young adult level.In the absence of evidence of kidney damage, neither GFRcategory G1 nor G2 fulfill the criteria for CKD.The CKD-EPI equation is validated in individuals 18 yearsof age and older. Currently the best equation forestimating glomerular filtration rate (GFR) from serumcreatinine in children is the Bedside Ly equation.It is less accurate in patients with extremes of musclemass, restriction of dietary protein, ingestion of creatine,extra-renal metabolism of creatinine, or treatment withmedications that affect renal tubular creatinine secretion. Performed By: #### C MP3M, HEMDF ####[facility] [employer] [id number] [place], [place] Albumin [Mass/Vol] 2.8 g/dL Low 3.5-5.0 [facility] Comment on above: Performed By: #### C MP3M, HEMDF ####[facility] [place] [address] Chloride [Moles/Vol] 107 mmol/L Normal 98-107 [facility] Comment on above: Performed By: #### C MP3M, HEMDF ####[address] [place] [address] Potassium [Moles/Vol] 3.7 mmol/L Normal 3.5-5.1 [facility] Comment on above: Performed By: #### C MP3M, HEMDF ####[address] [place] [address] Sodium [Moles/Vol] 138 mmol/L Normal 135-145 [facility] Comment on above: Performed By: #### C MP3M, HEMDF ####[address] [place] [address] Glucose,Bedsideon 03-11-2021 Glucose [Mass/Vol] 227 mg/dL High 70-100 [facility] Comment on above: Result Comment: Test performed by glucose meter. Results may be 10%-15% lowerthan serum/plasma values. (CLIA ID [id number]) Performed By: #### B GLU ####[address] [place] [address] Glucose [Mass/Vol] 161 mg/dL High 70-100 [facility] Comment on above: Result Comment: manager mac Notified;Test performed by glucose meter. Results may be 10%-15% lowerthan serum/plasma values. (CLIA ID [id number]) Performed By: #### B GLU ####[address] [place] [address] Glucose [Mass/Vol] 171 mg/dL High 70-100 [facility] Comment on above: Result Comment: manager mac Notified;Test performed by glucose meter. Results may be 10%-15% lowerthan serum/plasma values. (CLIA ID [id number]) Performed By: #### B GLU ####[address] [place], [place] Hemogram w/ Autodiffon 03-11 Abs Baso Cnt 0.1 10*3/uL Normal 0.0-0.2 [facility] Comment on above: Performed By: #### C MP3M, HEMDF ####[address] [place], [place] Abs Neutrophile Cnt 3.2 10*3/uL Normal 1.8-7.0 [facility] Comment on above: Performed By: #### C MP3M, HEMDF ####[address] [place], [place] Basophils/100 WBC (Bld) 1.0 % Normal 0.0-2.0 [facility] Comment on above: Performed By: #### C MP3M, HEMDF ####[address] [place], [place] Eosinophils (Bld) [#/Vol] 0.5 10*3/uL Normal 0.0-0.5 [facility] Comment on above: Performed By: #### C MP3M, HEMDF ####[address] [place], [place] Eosinophils/100 WBC (Bld) 8.4 % High 1.0-6.0 [facility] Comment on above: Performed By: #### C MP3M, HEMDF ####[address] [place] Erythrocyte distribution width (RBC) [Ratio] 16.6 % High 11.5-14.5 [facility] Comment on above: Performed By: #### C MP3M, HEMDF ####[address] [place] Granulocytes/100 WBC (Bld) 54.8 % Normal 40.0-80.0 [facility] Comment on above: Performed By: #### C MP3M, HEMDF ####[facility] [employer] [id number] [place], [place] Hematocrit (Bld) [Volume fraction] 26.3 % Low 35.0-47.0 [facility] Comment on above: Performed By: #### C MP3Gerald, HEMDF ####[address] [place], [place] Hemoglobin (Bld) [Mass/Vol] 8.3 g/dL Low 11.7-16.0 [facility] Comment on above: Performed By: #### C MP3M, HEMDF ####[address] [place] Lymphocytes (Bld) [#/Vol] 1.6 10*3/uL Normal 1.0-4.3 [facility] Comment on above: Performed By: #### C ALTON3Gerald, HEMDF ####[address] [place], [place] Lymphocytes/100 WBC (Bld) 26.6 % Normal 20.0-40.0 [facility] Comment on above: Performed By: #### C MP3Gerald, HEMDF ####[address] [place] MCH (RBC) [Entitic mass] 28.3 pg Normal 26.0-34.0 [facility] Comment on above: Performed By: #### C MP3M, HEMDF ####[address] [place] MCHC 31.6 % Low 32.0-36.0 [facility] Comment on above: Performed By: #### C MP3M, HEMDF ####[address] [place] MCV (RBC) [Entitic vol] 89.4 fL Normal 79.0-98.0 [facility] Comment on above: Performed By: #### C MP3M, HEMDF ####[address] [place] Monocytes (Bld) [#/Vol] 0.5 10*3/uL Normal 0.0-0.8 [facility] Comment on above: Performed By: #### C MP3M, HEMDF ####[address] [place] Monocytes/100 WBC (Bld) 9.2 % Normal 2.0-10.0 [facility] Comment on above: Performed By: #### C MP3M, HEMDF ####[address] [place] Platelet mean volume (Bld) [Entitic vol] 9.8 fL Normal 7.4-10.4 [facility] Comment on above: Performed By: #### C MP3M, HEMDF ####[address] [place] Platelets (Bld) [#/Vol] 227 10*3/uL Normal 140-440 [facility] Comment on above: Performed By: #### C MP3M, HEMDF ####[address] [place] RBC (Bld) [#/Vol] 2.94 10*6/uL Low 3.80-5.20 [facility] Comment on above: Performed By: #### C MP3M, HEMDF ####[address] [place] WBC (Bld) [#/Vol] 5.9 10*3/uL Normal 3.6-10.7 [facility] Comment on above: Performed By: #### C MP3M, HEMDF ####[address] [place] Vancomycin Troughon 03-11-20 Vancomycin Trough 16.9 ug/mL Normal 15.0-20.0 [facility] Comment on above: Result Comment: . Performed By: #### V ANCT ####[address] [place], [place] Comp Panel with Mg Reflexon 03-10-2021 ALT [Catalytic activity/Vol] 9 U/L Normal 0-34 [facility] Comment on above: Result Comment: The ALT test is performed by an updated assay method.Please note that the reference intervals have beenchanged and are now sex specific. Performed By: #### C MP3M, MG3, HEMDF ####[address] [employer] Calcium [Mass/Vol] 8.2 mg/dL Low 8.4-10.4 [facility] Comment on above: Performed By: #### C MP3M, MG3, HEMDF ####[address] [employer] Glucose [Mass/Vol] 141 mg/dL High 70-100 [facility] Comment on above: Performed By: #### C MP3M, MG3, HEMDF ####[address] [employer] ALP [Catalytic activity/Vol] 67 U/L Normal 38-126 [facility] Comment on above: Performed By: #### C MP3M, MG3, HEMDF ####[address] [employer] Anion gap [Moles/Vol] 4 mmol/L Normal 3-13 [facility] Comment on above: Performed By: #### C MP3M, MG3, HEMDF ####[address] [employer], [place] AST [Catalytic activity/Vol] 18 U/L Normal 15-46 [facility] Comment on above: Performed By: #### C MP3M, MG3, HEMDF ####[address] [employer] Bilirubin [Mass/Vol] 0.5 mg/dL Normal 0.2-1.3 [facility] Comment on above: Performed By: #### C MP3M, MG3, HEMDF ####[facility] [employer] [id number] [employer] CO2 [Moles/Vol] 30 mmol/L Normal 22-30 [facility] Comment on above: Performed By: #### C MP3M, MG3, HEMDF ####[facility] [employer] [id number] [employer] Creatinine [Mass/Vol] 0.61 mg/dL Normal 0.52-1.25 [facility] Comment on above: Performed By: #### MARNI BELLAMY, HEMDF ####[facility] [place], [place] eGFR OTHER > 90.0 Normal >60 [facility] Comment on above: Result Comment: KDIG O guidelines provide the following GFR categories:Stage GFR(ml/min/1.73 m2) TermsG1 >=90 Normal or highG2 60-89 Mildly decreased*G3a 45-59 Mildly to moderately [id number] 30-44 Moderately to severely decreasedG4 15-29 Severely decreasedG5 <15 Kidney failure*Relative to young adult level.In the absence of evidence of kidney damage, neither GFRcategory G1 nor G2 fulfill the criteria for CKD.The CKD-EPI equation is validated in individuals 18 yearsof age and older. Currently the best equation forestimating glomerular filtration rate (GFR) from serumcreatinine in children is the Bedside Ly equation.It is less accurate in patients with extremes of musclemass, restriction of dietary protein, ingestion of creatine,extra-renal metabolism of creatinine, or treatment withmedications that affect renal tubular creatinine secretion. Performed By: #### C MARNI KNUTSON, HEMDF ####[facility] [employer] [id number] [place], [place] GFR/1.73 sq M.predicted among blacks MDRD (S/P/Bld) [Vol rate/Area] mL/min/{1.73_m2} Normal >60 [facility] Comment on above: Performed By: #### Hakan KNUTSON MG3, HEMDF ####[facility] [employer] [address] [place], [place] Protein [Mass/Vol] 5.6 g/dL Low 6.3-8.2 [facility] Comment on above: Performed By: #### Hakan KNUTSON MG3, HEMDF ####[facility] [employer] [address] [place], [place] Urea nitrogen [Mass/Vol] 8 mg/dL Low 9-20 [facility] Comment on above: Performed By: #### MG MIA3, HEMDF ####[facility] [place] [address] Potassium [Moles/Vol] 3.5 mmol/L Normal 3.5-5.1 [facility] Comment on above: Performed By: #### C MP3M, MG3, HEMDF ####[address] [place] [address] Sodium [Moles/Vol] 139 mmol/L Normal 135-145 [facility] Comment on above: Performed By: #### C MP3M, MG3, HEMDF ####[address] [place] [address] Albumin [Mass/Vol] 2.7 g/dL Low 3.5-5.0 [facility] Comment on above: Performed By: #### C MP3M, MG3, HEMDF ####[address] [place] [address] Chloride [Moles/Vol] 106 mmol/L Normal 98-107 [facility] Comment on above: Performed By: #### C MP3M, MG3, HEMDF ####[address] [place] [address] Glucose,Bedsideon 03-10-2021 Glucose [Mass/Vol] 198 mg/dL High 70-100 [facility] Comment on above: Result Comment: Test performed by glucose meter. Results may be 10%-15% lowerthan serum/plasma values. (CLIA ID [id number]) Performed By: #### B GLU ####[address] [place] [address] Glucose [Mass/Vol] 165 mg/dL High 70-100 [facility] Comment on above: Result Comment: Test performed by glucose meter. Results may be 10%-15% lowerthan serum/plasma values. (CLIA ID [id number]) Performed By: #### B GLU ####[address] [place] [address] Glucose [Mass/Vol] 184 mg/dL High 70-100 [facility] Comment on above: Result Comment: Test performed by glucose meter. Results may be 10%-15% lowerthan serum/plasma values. (CLIA ID [id number]) Performed By: #### B GLU ####[address] Glucose [Mass/Vol] 171 mg/dL High 70-100 [facility] Comment on above: Result Comment: Test performed by glucose meter. Results may be 10%-15% lowerthan serum/plasma values. (CLIA ID [id number]) Performed By: #### B GLU ####[address] Hemogram w/ Autodiffon 03-10 Abs Baso Cnt 0.0 10*3/uL Normal 0.0-0.2 [facility] Comment on above: Performed By: #### C MP3M, MG3, HEMDF ####[address] Abs Neutrophile Cnt 2.7 10*3/uL Normal 1.8-7.0 [facility] Comment on above: Performed By: #### C MP3M, MG3, HEMDF ####[address] [place], [place] Basophils/100 WBC (Bld) 0.7 % Normal 0.0-2.0 [facility] Comment on above: Performed By: #### C MP3M, MG3, HEMDF ####[address] [place], [place] Eosinophils (Bld) [#/Vol] 0.5 10*3/uL Normal 0.0-0.5 [facility] Comment on above: Performed By: #### C MP3M, MG3, HEMDF ####[address] Eosinophils/100 WBC (Bld) 9.9 % High 1.0-6.0 [facility] Comment on above: Performed By: #### C MP3M, MG3, HEMDF ####[address] Erythrocyte distribution width (RBC) [Ratio] 16.3 % High 11.5-14.5 [facility] Comment on above: Performed By: #### C MP3M, MG3, HEMDF ####[address] [place], [place] Granulocytes/100 WBC (Bld) 52.2 % Normal 40.0-80.0 [facility] Comment on above: Performed By: #### C MP3M, MG3, HEMDF ####[address] Hematocrit (Bld) [Volume fraction] 30.6 % Low 35.0-47.0 [facility] Comment on above: Performed By: #### C MP3M, MG3, HEMDF ####[address] [place], [place] Hemoglobin (Bld) [Mass/Vol] 9.7 g/dL Low 11.7-16.0 [facility] Comment on above: Performed By: #### C MP3M, MG3, HEMDF ####[address] [place], [place] Lymphocytes (Bld) [#/Vol] 1.5 10*3/uL Normal 1.0-4.3 [facility] Comment on above: Performed By: #### C MP3M, MG3, HEMDF ####[address] Lymphocytes/100 WBC (Bld) 28.1 % Normal 20.0-40.0 [facility] Comment on above: Performed By: #### C MP3M, MG3, HEMDF ####[address] [place], [place] MCH (RBC) [Entitic mass] 28.2 pg Normal 26.0-34.0 [facility] Comment on above: Performed By: #### C MP3M, MG3, HEMDF ####[address] MCHC 31.7 % Low 32.0-36.0 [facility] Comment on above: Performed By: #### C MP3M, MG3, HEMDF ####[address] [place], [place] MCV (RBC) [Entitic vol] 89.2 fL Normal 79.0-98.0 [facility] Comment on above: Performed By: #### C MP3M, MG3, HEMDF ####[address] Monocytes (Bld) [#/Vol] 0.5 10*3/uL Normal 0.0-0.8 [facility] Comment on above: Performed By: #### C MP3M, MG3, HEMDF ####[address] Monocytes/100 WBC (Bld) 9.1 % Normal 2.0-10.0 [facility] Comment on above: Performed By: #### C MP3M, MG3, HEMDF ####[address] Platelet mean volume (Bld) [Entitic vol] 9.6 fL Normal 7.4-10.4 [facility] Comment on above: Performed By: #### C MP3M, MG3, HEMDF ####[address] Platelets (Bld) [#/Vol] 212 10*3/uL Normal 140-440 [facility] Comment on above: Performed By: #### C MP3M, MG3, HEMDF ####[address] RBC (Bld) [#/Vol] 3.42 10*6/uL Low 3.80-5.20 [facility] Comment on above: Performed By: #### C MP3M, MG3, HEMDF ####[address] WBC (Bld) [#/Vol] 5.3 10*3/uL Normal 3.6-10.7 [facility] Comment on above: Performed By: #### C MP3M, MG3, HEMDF ####[address] [place], [place] Magnesiumon 03-10-2021 Magnesium [Mass/Vol] 1.9 mg/dL Normal 1.6-2.3 [facility] Comment on above: Performed By: #### C MP3M, MG3, HEMDF ####[address] [place], [place] VL Venous Duplex US Lower Ex t Bilateralon 03-10-2021 VL Venous Duplex US Lower Ext Bilateral Normal [facility] Vancomycin Troughon 03-10-20 21 Vancomycin Trough 14.4 ug/mL Low 15.0-20.0 [facility] Comment on above: Result Comment: . Performed By: #### V ANCT ####[address] [place], [place] Comp Panel with Mg Reflexon 03-09-2021 ALT [Catalytic activity/Vol] 10 U/L Normal 0-34 [facility] Comment on above: Result Comment: The ALT test is performed by an updated assay method.Please note that the reference intervals have beenchanged and are now sex specific. Performed By: #### H HUBER CMP3M ####[address] [place], [place] Calcium [Mass/Vol] 8.6 mg/dL Normal 8.4-10.4 [facility] Comment on above: Performed By: #### H HUBER CMP3M ####[facility] [employer] [id number] [place], [place] Glucose [Mass/Vol] 192 mg/dL High 70-100 [facility] Comment on above: Performed By: #### H HUBER CMP3M ####[address] [place], [place] Urea nitrogen [Mass/Vol] 10 mg/dL Normal 9-20 [facility] Comment on above: Performed By: #### H HUBER CMP3M ####[facility] [employer] [address] [place] [address] ALP [Catalytic activity/Vol] 90 U/L Normal 38-126 [facility] Comment on above: Performed By: #### H HUBER CMP3M ####[facility] [employer] [address] [place] [address] Anion gap [Moles/Vol] 7 mmol/L Normal 3-13 [facility] Comment on above: Performed By: #### H HUBER CMP3M ####[facility] [employer] [address] [place] [address] AST [Catalytic activity/Vol] 20 U/L Normal 15-46 [facility] Comment on above: Performed By: #### H HUBER CMP3M ####[facility] [employer] [address] [place] [address] Bilirubin [Mass/Vol] 0.6 mg/dL Normal 0.2-1.3 [facility] Comment on above: Performed By: #### Tram NGO CMP3M ####[facility] [employer] [address] [place] [address] CO2 [Moles/Vol] 30 mmol/L Normal 22-30 [facility] Comment on above: Performed By: #### Tram NGO CMP3M ####[facility] [employer] [address] [place] [address] Creatinine [Mass/Vol] 0.56 mg/dL Normal 0.52-1.25 [facility] Comment on above: Performed By: #### H HUBER CMP3M ####[facility] [employer] [address] [place] [address] eGFR OTHER > 90.0 Normal >60 [facility] Comment on above: Result Comment: KDIG O guidelines provide the following GFR categories:Stage GFR(ml/min/1.73 m2) TermsG1 >=90 Normal or highG2 60-89 Mildly decreased*G3a 45-59 Mildly to moderately [id number] 30-44 Moderately to severely decreasedG4 15-29 Severely decreasedG5 <15 Kidney failure*Relative to young adult level.In the absence of evidence of kidney damage, neither GFRcategory G1 nor G2 fulfill the criteria for CKD.The CKD-EPI equation is validated in individuals 18 yearsof age and older. Currently the best equation forestimating glomerular filtration rate (GFR) from serumcreatinine in children is the Bedside Ly equation.It is less accurate in patients with extremes of musclemass, restriction of dietary protein, ingestion of creatine,extra-renal metabolism of creatinine, or treatment withmedications that affect renal tubular creatinine secretion. Performed By: #### H VIKTORIYA NGO3M ####[address] [place] [address] GFR/1.73 sq M.predicted among blacks MDRD (S/P/Bld) [Vol rate/Area] mL/min/{1.73_m2} Normal >60 [facility] Comment on above: Performed By: #### H HUBER CMP3M ####[address] [place] [address] Protein [Mass/Vol] 6.6 g/dL Normal 6.3-8.2 [facility] Comment on above: Performed By: #### H HUBER CMP3M ####[address] [place] [address] Potassium [Moles/Vol] 3.7 mmol/L Normal 3.5-5.1 [facility] Comment on above: Performed By: #### H HUBER CMP3M ####[address] [place] [address] Sodium [Moles/Vol] 143 mmol/L Normal 135-145 [facility] Comment on above: Performed By: #### H HUBER CMP3M ####[address] [place] [address] Albumin [Mass/Vol] 3.3 g/dL Low 3.5-5.0 [facility] Comment on above: Performed By: #### H HUBER CMP3M ####[address] [place] [address] Chloride [Moles/Vol] 106 mmol/L Normal 98-107 [facility] Comment on above: Performed By: #### H EMDF, CMP3M ####[facility] [place] [address] Glucose,Bedsideon 03-09-2021 Glucose [Mass/Vol] 198 mg/dL High 70-100 [facility] Comment on above: Result Comment: Test performed by glucose meter. Results may be 10%-15% lowerthan serum/plasma values. (CLIA ID [id number]) Performed By: #### B GLU ####[facility] [employer] [address] [place] [address] Glucose [Mass/Vol] 155 mg/dL High 70-100 [facility] Comment on above: Result Comment: Test performed by glucose meter. Results may be 10%-15% lowerthan serum/plasma values. (CLIA ID [id number]) Performed By: #### B GLU ####[facility] [employer] [address] [place] [address] Glucose [Mass/Vol] 147 mg/dL High 70-100 [facility] Comment on above: Result Comment: Test performed by glucose meter. Results may be 10%-15% lowerthan serum/plasma values. (CLIA ID [id number]) Performed By: #### B GLU ####[facility] [employer] [address] [place] [address] Glucose [Mass/Vol] 176 mg/dL High 70-100 [facility] Comment on above: Result Comment: Test performed by glucose meter. Results may be 10%-15% lowerthan serum/plasma values. (CLIA ID [id number]) Performed By: #### B GLU ####[facility] [employer] [address] [place] [address] Glucose [Mass/Vol] 188 mg/dL High 70-100 [facility] Comment on above: Result Comment: Test performed by glucose meter. Results may be 10%-15% lowerthan serum/plasma values. (CLIA ID [id number]) Performed By: #### B GLU ####[facility] [employer] [address] [place] [address] Hemoglobin A1Con 03-09-2021 Glucose [Mass/Vol] 171 mg/dL Normal [facility] Comment on above: Performed By: #### H A1C2 PHOS3 ####[address] [place], [place] HbA1c (Bld) [Mass fraction] 7.6 % Abnormal [facility] Comment on above: Result Comment: Norm al less than 5.7%Prediabetes 5.7% to 6.4%Diabetes 6.5% or higher--HgbA1C levels may not be accurate in patients who haverenal disease, received recent blood transfusions, are anemic,or who have dyshemoglobinemia. Performed By: #### H A1C2 PHOS3 ####[address] Hemogram w/ Autodiffon 03-09 Abs Baso Cnt 0.0 10*3/uL Normal 0.0-0.2 [facility] Comment on above: Performed By: #### Tram NGO CMP3M ####[address] Abs Neutrophile Cnt 4.4 10*3/uL Normal 1.8-7.0 [facility] Comment on above: Performed By: #### Tram NGO CMP3M ####[address] Basophils/100 WBC (Bld) 0.6 % Normal 0.0-2.0 [facility] Comment on above: Performed By: #### Tram NGO CMP3M ####[address] [place], [place] Eosinophils (Bld) [#/Vol] 0.5 10*3/uL Normal 0.0-0.5 [facility] Comment on above: Performed By: #### Tram NGO CMP3M ####[address] Eosinophils/100 WBC (Bld) 6.7 % High 1.0-6.0 [facility] Comment on above: Performed By: #### H HUBER CMP3M ####[address] [place], [place] Erythrocyte distribution width (RBC) [Ratio] 16.4 % High 11.5-14.5 [facility] Comment on above: Performed By: #### H HUBER CMP3M ####[address] [place], [place] Granulocytes/100 WBC (Bld) 65.3 % Normal 40.0-80.0 [facility] Comment on above: Performed By: #### H HUBER CMP3M ####[address] [place], [place] Hematocrit (Bld) [Volume fraction] 36.0 % Normal 35.0-47.0 [facility] Comment on above: Performed By: #### H HUBER CMP3M ####[address] Hemoglobin (Bld) [Mass/Vol] 11.2 g/dL Low 11.7-16.0 [facility] Comment on above: Performed By: #### H HUBER CMP3M ####[address] [place], [place] Lymphocytes (Bld) [#/Vol] 1.3 10*3/uL Normal 1.0-4.3 [facility] Comment on above: Performed By: #### H HUBER CMP3M ####[address] Lymphocytes/100 WBC (Bld) 18.9 % Low 20.0-40.0 [facility] Comment on above: Performed By: #### H HUBER CMP3M ####[address] [place], [place] MCH (RBC) [Entitic mass] 28.1 pg Normal 26.0-34.0 [facility] Comment on above: Performed By: #### H HUBER CMP3M ####[address] MCHC 31.1 % Low 32.0-36.0 [facility] Comment on above: Performed By: #### Tram NGO CMP3M ####[address] [place], [place] MCV (RBC) [Entitic vol] 90.3 fL Normal 79.0-98.0 [facility] Comment on above: Performed By: #### Tram NGO CMP3M ####[address] [place], [place] Monocytes (Bld) [#/Vol] 0.6 10*3/uL Normal 0.0-0.8 [facility] Comment on above: Performed By: #### Tram NGO CMP3M ####[address] Monocytes/100 WBC (Bld) 8.5 % Normal 2.0-10.0 [facility] Comment on above: Performed By: #### Tram NGO CMP3M ####[address] Platelet mean volume (Bld) [Entitic vol] 9.5 fL Normal 7.4-10.4 [facility] Comment on above: Performed By: #### Tram NGO CMP3M ####[address] Platelets (Bld) [#/Vol] 223 10*3/uL Normal 140-440 [facility] Comment on above: Performed By: #### Tram NGO CMP3M ####[address] RBC (Bld) [#/Vol] 3.98 10*6/uL Normal 3.80-5.20 [facility] Comment on above: Performed By: #### Tram NGO CMP3M ####[address] WBC (Bld) [#/Vol] 6.8 10*3/uL Normal 3.6-10.7 [facility] Comment on above: Performed By: #### H EMDF, CMP3M ####[facility] [place], [place] Phosphoruson 03-09-2021 Phosphate [Mass/Vol] 3.8 mg/dL Normal 2.5-4.5 [facility] Comment on above: Performed By: #### H A1C2, PHOS3 ####[address] [place], [place] Add on test from HISon 03-08 Add on test from HIS Accepted Normal [facility] Comment on above: Result Comment: Spec imen available & acceptable for analysis. Performed By: #### A DDON ####[address] [place], [place] C-Reactive Proteinon 021 CRP [Mass/Vol] 15.0 mg/L High 0.0-9.9 [facility] Comment on above: Result Comment: . Performed By: #### C RP2, PT/AP ####[address] [place], [place] CR Ankle 3+ Views Lefton CR Ankle 3+ Views Left Normal [facility] CR Chest Portableon 03-08-20 21 CR Chest Portable Normal [facility] CR Foot Complete 3+ Views Ri ghton 03-08-2021 CR Foot Complete 3+ Views Right Normal [facility] CR Tibia/Fibula 2 Views Righ ton 03-08-2021 CR Tibia/Fibula 2 Views Right Normal [facility] Comp Metabolic Panelon 03-08 ALP [Catalytic activity/Vol] 87 U/L Normal 38-126 [facility] Comment on above: Performed By: #### C MP3, PCAL, ESR, MG3, LDH3, HEMDF ####[address] [place], [place] ALT [Catalytic activity/Vol] 11 U/L Normal 0-34 [facility] Comment on above: Result Comment: The ALT test is performed by an updated assay method.Please note that the reference intervals have beenchanged and are now sex specific. Performed By: #### C MP3, PCAL, ESR, MG3, LDH3, HEMDF ####[address] [place] AST [Catalytic activity/Vol] 23 U/L Normal 15-46 [facility] Comment on above: Performed By: #### C MP3, PCAL, ESR, MG3, LDH3, HEMDF ####[address] [place] Calcium [Mass/Vol] 8.9 mg/dL Normal 8.4-10.4 [facility] Comment on above: Performed By: #### C MP3, PCAL, ESR, MG3, LDH3, HEMDF ####[address] [place] Glucose [Mass/Vol] 212 mg/dL High 70-100 [facility] Comment on above: Performed By: #### C MP3, PCAL, ESR, MG3, LDH3, HEMDF ####[address] [place] Protein [Mass/Vol] 6.5 g/dL Normal 6.3-8.2 [facility] Comment on above: Performed By: #### C MP3, PCAL, ESR, MG3, LDH3, HEMDF ####[address] [place] Urea nitrogen [Mass/Vol] 12 mg/dL Normal 9-20 [facility] Comment on above: Performed By: #### C MP3, PCAL, ESR, MG3, LDH3, HEMDF ####[address] [facility] [place] Anion gap [Moles/Vol] 6 mmol/L Normal 3-13 [facility] Comment on above: Performed By: #### C MP3, PCAL, ESR, MG3, LDH3, HEMDF ####[address] [place] Bilirubin [Mass/Vol] 0.5 mg/dL Normal 0.2-1.3 [facility] Comment on above: Performed By: #### C MP3, PCAL, ESR, MG3, LDH3, HEMDF ####[facility] [place], [place] CO2 [Moles/Vol] 30 mmol/L Normal 22-30 [facility] Comment on above: Performed By: #### C MP3, PCAL, ESR, MG3, LDH3, HEMDF ####[address] [place], [place] Creatinine [Mass/Vol] 0.59 mg/dL Normal 0.52-1.25 [facility] Comment on above: Performed By: #### C MP3, PCAL, ESR, MG3, LDH3, HEMDF ####[address] [place] eGFR OTHER > 90.0 Normal >60 [facility] Comment on above: Result Comment: KDIG O guidelines provide the following GFR categories:Stage GFR(ml/min/1.73 m2) TermsG1 >=90 Normal or highG2 60-89 Mildly decreased*G3a 45-59 Mildly to moderately [id number] 30-44 Moderately to severely decreasedG4 15-29 Severely decreasedG5 <15 Kidney failure*Relative to young adult level.In the absence of evidence of kidney damage, neither GFRcategory G1 nor G2 fulfill the criteria for CKD.The CKD-EPI equation is validated in individuals 18 yearsof age and older. Currently the best equation forestimating glomerular filtration rate (GFR) from serumcreatinine in children is the Bedside Ly equation.It is less accurate in patients with extremes of musclemass, restriction of dietary protein, ingestion of creatine,extra-renal metabolism of creatinine, or treatment withmedications that affect renal tubular creatinine secretion. Performed By: #### C MP3, PCAL, ESR, MG3, LDH3, HEMDF ####[address] [place], [place] GFR/1.73 sq M.predicted among blacks MDRD (S/P/Bld) [Vol rate/Area] mL/min/{1.73_m2} Normal >60 [facility] Comment on above: Performed By: #### C MP3, PCAL, ESR, MG3, LDH3, HEMDF ####[address] [place] [address] Potassium [Moles/Vol] 3.8 mmol/L Normal 3.5-5.1 [facility] Comment on above: Performed By: #### C MP3, PCAL, ESR, MG3, LDH3, HEMDF ####[address] [place] [address] Sodium [Moles/Vol] 142 mmol/L Normal 135-145 [facility] Comment on above: Performed By: #### C MP3, PCAL, ESR, MG3, LDH3, HEMDF ####[address] [place] [address] Albumin [Mass/Vol] 3.3 g/dL Low 3.5-5.0 [facility] Comment on above: Performed By: #### C MP3, PCAL, ESR, MG3, LDH3, HEMDF ####[address] [place] [address] Chloride [Moles/Vol] 105 mmol/L Normal 98-107 [facility] Comment on above: Performed By: #### C MP3, PCAL, ESR, MG3, LDH3, HEMDF ####[address] [place] [address] ED Provider Noteon [facility] Patient: Salazar Coyle : 1950 Date of Evaluation: 03/08/2021 ED Resident Provider: Jagdeep Anderson MD ED care was supervised by Dr. Cassidy who independently examined and evaluated the patient. Please see their attestation note for further details. Chief Complaint Chief Complaint Patient presents with ? Wound Infection pt presents to ed with wound infection to right foot that has been being treated by iv antibiotics MILLE LACS I was wearing a surgical mask for the entirety of this encounter. Does this patient come from an ECF, SNF, Rehab, Longterm or other Congregate setting: ECF (If yes to above patient needs a Covid-19 test) Salazar Metheney is a 70 y.o. female who presents to the emergency department due to a chronic R foot infection that she has been on IV abx for. PMHx significant for morbid obesity and T2DM. She came from an F. At the fpc they have been having difficulty with wound care due to patient unwillingness to allow them to do wound care and touch the leg. She has been receiving abx through a PICC line. Has had fevers and chills and leg pain. Denies CP, SOB or further symptoms on ROS. In the ED vitals were BP 164/70, SpO2 87% (patient refused supplemental O2), 98.2 F, HR 82 and RR 18. ROS: Review of Systems Constitutional: Positive for chills and fever. Negative for diaphoresis. HENT: Negative for congestion, postnasal drip, rhinorrhea and sinus pain. Respiratory: Negative for cough and shortness of breath. Cardiovascular: Negative for chest pain and leg swelling. Gastrointestinal: Negative for abdominal distention, abdominal pain, constipation, diarrhea, nausea and vomiting. Endocrine: Negative for cold intolerance and heat intolerance. Genitourinary: Negative for difficulty urinating and dysuria. Musculoskeletal: Positive for myalgias. Negative for arthralgias and joint swelling. Pain in R leg at site of chronic foot wound Skin: Negative for rash. Neurological: Negative for dizziness, weakness, numbness and headaches. Psychiatric/Behavioral: Negative for agitation and confusion. The patient is not nervous/anxious. At least 10 systems reviewed and otherwise acutely negative except as in the [facility]. Past History No past medical history on file. No past surgical history on file. Social History Socioeconomic History ? Marital status: Spouse name: Not on file ? Number of children: Not on file ? Years of education: Not on file ? Highest education level: Not on file Occupational History ? Not on file Tobacco Use ? Smoking status: Not on file ? Smokeless tobacco: Not on file Substance and Sexual Activity ? Alcohol use: Not on file ? Drug use: Not on file ? Sexual activity: Not on file Other Topics Concern ? Not on file Social History Narrative ? Not on file Social Determinants of Health Financial Resource Strain: ? Difficulty of Paying Living Expenses: Not on file Food Insecurity: ? Worried About Running Out of Food in the Last Year: Not on file ? Ran Out of Food in the Last Year: Not on file Transportation Needs: ? Lack of Transportation (Medical): Not on file ? Lack of Transportation (Non-Medical): Not on file Physical Activity: ? Days of Exercise per Week: Not on file ? Minutes of Exercise per Session: Not on file Stress: ? Feeling of Stress : Not on file Social Connections: ? Frequency of Communication with Friends and Family: Not on file ? Frequency of Social Gatherings with Friends and Family: Not on file ? Attends Gnosticism Services: Not on file ? Active Member of Clubs or Organizations: Not on file ? Attends Club or Organization Meetings: Not on file ? Marital Status: Not on file Intimate Partner Violence: ? Fear of Current or Ex-Partner: Not on file ? Emotionally Abused: Not on file ? Physically Abused: Not on file ? Sexually Abused: Not on file Housing Stability: ? Unable to Pay for Housing in the Last Year: Not on file ? Number of Places Lived in the Last Year: Not on file ? Unstable Housing in the Last Year: Not on file Medications/Allergies Previous Medications No medications on file Not on File PhysicalExam ED Triage Vitals [03/08/21 1221] BP Temp Temp Source Pulse Resp SpO2 Height Weight (!) 164/70 98.2 ?F (36.8 ?C) Oral 82 18 (!) 87 % 5' 2" (1.575 m) (!) 400 lb (181.4 kg) Physical Exam Vitals and nursing note reviewed. Constitutional: General: She is not in acute distress. Appearance: Normal appearance. She is not diaphoretic. HENT: Head: Normocephalic and atraumatic. Right Ear: External ear normal. Left Ear: External ear normal. Nose: Nose normal. Mouth/Throat: Mouth: Mucous membranes are moist. Pharynx: Oropharynx is clear. Eyes: General: No scleral icterus. Conjunctiva/sclera: Conjunctivae normal. Pupils: Pupils are equal, round, and reactive to light. Ca (more content not included)... Normal [facility] ED Provider Note Emergency Department Encounter [facility] [place] Patient: Salazar Coyle : 1950 Date of Evaluation: 03/08/2021 ED Supervising Physician: Kamran Cassidy MD I independently examined and evaluated Salazar Coyle. In brief, Salazar Coyle is a 70 y.o. female that presents to the emergency department for evaluation of chronic right foot infection. Focused exam: Awake and alert, no acute distress, hemodynamically stable. Normocephalic, atraumatic. Trachea midline. Breathing comfortably on room air. Breath sounds are clear to auscultation bilaterally. Regular rate and rhythm. Abdomen is soft, nondistended, nontender. No rebound or guarding. The patient moves all extremities equally. Distal pulses are intact and equal bilaterally. Brief ED course/MDM: Patient will be admitted for further evaluation and treatment. Antibiotics initiated in the emergency department. Total critical care time today provided was at least 0 minutes. All diagnostic, treatment, and disposition decisions were made by myself in conjunction with the Resident. I also supervised arias portions of any procedures performed by the Resident. For all further details of the patient's emergency department visit, please see their documentation. (Please note that portions of this note may have been completed with a voice recognition program. Efforts were made to edit the dictations but occasionally words are mis-transcribed.) Kamran Cassidy MD Acute Care [facility] Kamran Cassidy MD 04/27/211999 Normal [facility] Hemogram w/ Autodiffon 03-08 Abs Baso Cnt 0.0 10*3/uL Normal 0.0-0.2 [facility] Comment on above: Performed By: #### C MP3, PCAL, ESR, MG3, LDH3, HEMDF ####[address] [place] [address] Abs Neutrophile Cnt 3.6 10*3/uL Normal 1.8-7.0 [facility] Comment on above: Performed By: #### C MP3, PCAL, ESR, MG3, LDH3, HEMDF ####[address] [place] [address] Basophils/100 WBC (Bld) 0.6 % Normal 0.0-2.0 [facility] Comment on above: Performed By: #### C MP3, PCAL, ESR, MG3, LDH3, HEMDF ####[address] [place] [address] Eosinophils (Bld) [#/Vol] 0.4 10*3/uL Normal 0.0-0.5 [facility] Comment on above: Performed By: #### C MP3, PCAL, ESR, MG3, LDH3, HEMDF ####[address] [place], [place] Eosinophils/100 WBC (Bld) 6.8 % High 1.0-6.0 [facility] Comment on above: Performed By: #### C MP3, PCAL, ESR, MG3, LDH3, HEMDF ####[address] Erythrocyte distribution width (RBC) [Ratio] 16.4 % High 11.5-14.5 [facility] Comment on above: Performed By: #### C MP3, PCAL, ESR, MG3, LDH3, HEMDF ####[address] Granulocytes/100 WBC (Bld) 63.4 % Normal 40.0-80.0 [facility] Comment on above: Performed By: #### C MP3, PCAL, ESR, MG3, LDH3, HEMDF ####[address] [place], [place] Hematocrit (Bld) [Volume fraction] 34.6 % Low 35.0-47.0 [facility] Comment on above: Performed By: #### C MP3, PCAL, ESR, MG3, LDH3, HEMDF ####[address] Hemoglobin (Bld) [Mass/Vol] 10.7 g/dL Low 11.7-16.0 [facility] Comment on above: Performed By: #### C MP3, PCAL, ESR, MG3, LDH3, HEMDF ####[address] [place], [place] Lymphocytes (Bld) [#/Vol] 1.3 10*3/uL Normal 1.0-4.3 [facility] Comment on above: Performed By: #### C MP3, PCAL, ESR, MG3, LDH3, HEMDF ####[address] [place], [place] Lymphocytes/100 WBC (Bld) 22.6 % Normal 20.0-40.0 [facility] Comment on above: Performed By: #### C MP3, PCAL, ESR, MG3, LDH3, HEMDF ####[address] [place], [place] MCH (RBC) [Entitic mass] 27.6 pg Normal 26.0-34.0 [facility] Comment on above: Performed By: #### C MP3, PCAL, ESR, MG3, LDH3, HEMDF ####[address] [place], [place] MCHC 30.9 % Low 32.0-36.0 [facility] Comment on above: Performed By: #### C MP3, PCAL, ESR, MG3, LDH3, HEMDF ####[address] [place], [place] MCV (RBC) [Entitic vol] 89.4 fL Normal 79.0-98.0 [facility] Comment on above: Performed By: #### C MP3, PCAL, ESR, MG3, LDH3, HEMDF ####[facility] [place], [place] Monocytes (Bld) [#/Vol] 0.4 10*3/uL Normal 0.0-0.8 [facility] Comment on above: Performed By: #### C MP3, PCAL, ESR, MG3, LDH3, HEMDF ####[address] [place], [place] Monocytes/100 WBC (Bld) 6.6 % Normal 2.0-10.0 [facility] Comment on above: Performed By: #### C MP3, PCAL, ESR, MG3, LDH3, HEMDF ####[address] [place], [place] Platelet mean volume (Bld) [Entitic vol] 9.0 fL Normal 7.4-10.4 [facility] Comment on above: Performed By: #### C MP3, PCAL, ESR, MG3, LDH3, HEMDF ####[address] [place], [place] Platelets (Bld) [#/Vol] 221 10*3/uL Normal 140-440 [facility] Comment on above: Performed By: #### C MP3, PCAL, ESR, MG3, LDH3, HEMDF ####[address] [place], [place] RBC (Bld) [#/Vol] 3.88 10*6/uL Normal 3.80-5.20 [facility] Comment on above: Performed By: #### C MP3, PCAL, ESR, MG3, LDH3, HEMDF ####[address] [place], [place] WBC (Bld) [#/Vol] 5.7 10*3/uL Normal 3.6-10.7 [facility] Comment on above: Performed By: #### C MP3, PCAL, ESR, MG3, LDH3, HEMDF ####[address] [place] [address] LDHon 03-08-2021 LDH 180 U/L Normal 120-246 [facility] Comment on above: Performed By: #### C MP3, PCAL, ESR, MG3, LDH3, HEMDF ####[address] [place], [place] Magnesiumon 03-08-2021 Magnesium [Mass/Vol] 2.0 mg/dL Normal 1.6-2.3 [facility] Comment on above: Performed By: #### C MP3, PCAL, ESR, MG3, LDH3, HEMDF ####[address] [place], [place] Procalcitoninon 03-08-2021 Procalcitonin 0.06 ng/mL Normal 0.00-0.09 [facility] Comment on above: Performed By: #### C MP3, PCAL, ESR, MG3, LDH3, HEMDF ####[address] [place], [place] Interpretation See Below Normal [facility] Comment on above: Result Comment: PCT <0.50 = Low risk of severe sepsis and/or septic shock.PCT >2.00 = High risk of severe sepsis and/or septic shock. Performed By: #### C MP3, PCAL, ESR, MG3, LDH3, HEMDF ####[address] [place], [place] Protime AND APTTon aPTT Coag (Bld) [Time] 26.5 s Normal 20.0-30.5 [facility] Comment on above: Result Comment: NOTE : The therapeutic time for Heparin anticoagulation,based on Xa activity inhibition, is an APTT of 46-80seconds. Performed By: #### C RP2, PT/AP ####[address] INR 1.1 Normal 0.9-1.1 [facility] Comment on above: Result Comment: Juan mmended Anticoagulant Therapy: SEE BELOW----- INR of 2.0 - 3.0 : - Prophylaxis of Venous Thrombosis (high-risk surgery) - Treatment of Venous Thrombosis - Treatment of Pulmonary Embolism (Includes tissue heart valves, Acute Myocardial Infarction to prevent systemic embolism, Valvular Heart Disease, and Atrial Fibrillation)----- INR of 2.5 - 3.5 : - Mechanical Prosthetic Valves (high risk) - If oral anticoagulant therapy is used to prevent Myocardial Infarction Performed By: #### C RP2, PT/AP ####[address] [place], [place] PT Coag (PPP) [Time] 11.4 s Normal 9.0-12.0 [facility] Comment on above: Result Comment: . Performed By: #### C RP2, PT/AP ####[address] [id number] 12-07-2021 SARS-CoV-2 (COVID-19) RNA EZIO+probe Ql (Unsp spec) Normal [facility] Comment on above: Performed By: #### C OVID ####[facility] [place], [place] Sed Rateon 03-08-2021 Sed Rate 62 mm/h High 0-20 [facility] Comment on above: Performed By: #### C MP3, PCAL, ESR, MG3, LDH3, HEMDF ####[facility] [place], [place] TS GELon 03-08-2021 TS GEL ABO Group: A Rh, Gel: POS Antibody Screen Gel: NEG Normal [facility] Comment on above: Performed By: #### T SGL ####[facility] VL PVR Arterial Doppler Lwr w/o Exerciseon 03-08-2021 VL PVR Arterial Doppler Lwr w/o Exercise Normal [facility] Clinical Event Note-Vancomyc inon 02-10-2021 Clinical Event Note-Vancomycin Clinical Event: Clinical Event Note: TopicVancomycin Details Weight: 193.7kg Age: 70 Creatinine clearance: >60 Indication: foot ulcers (15-20) Vanco Ordered Dose/Frequency: 1.25g q12 Additional Information: Pt was previously on 1.25g q12 so will restart at same dose with a level prior to 4th dose Electronic Signatures: Giuliana Mcmahon ([facility]) (Signed 10-Feb-2021 11:51) Authored: Clinical Event Note Last Updated: 10-Feb-2021 11:51 by Giuliana Mcmahon ([facility]) Normal [facility] Daily Progress Note-Vascular Surgeryon 02-10-2021 Daily Progress Note-Vascular Surgery Service: Vascular Surgery Subjective Data: SALAZAR COYLE is a 70 year old Female who is Hospital Day # 5. I examined this patient at bedside she was supine in the bed. I was able to place a pillow under her left leg. Explained the importance of elevation of her lower extremities to promote healing and reduce edema. Overnight Events: Patient had an uneventful night. Objective Data: Objective Information: T PRBPSpO2 [id number]/6394% Date/Time02/10 5: 5: 5: 6: 5:06 Range(36.1C - 37.7C ) (61 - 71 ) (18 - 18 ) (143 - 210 )/ (63 - 85 ) (94% - 96% ) Highest temp of 37.7 C was recorded at 02/09 19:55 Pain reported at 02/10 9:18: 0 = None Physical Exam Narrative: Physical Exam: Constitutional: Well developed , awake/alert/oriented x3, in no distress,Alexx obese Eyes: Clear sclera ENMT: mucous membranes are moist, no apparent injury, no lesions seen, Head/neck: Neck supple, trachea is midline, no apparent injury, no JVD, no bruits, no mass, no stridor Respiratory/thorax: Breath sounds clear and equal bilaterally with good chest expansion, thorax symmetric Cardiovascular: Regular, rate and rhythm, no murmurs, 2+ radial pulses, right DP biphasic, left DP and PT biphasic. Gastrointestinal: Nondistended soft nontender no rebound tenderness or guarding no masses palpable no organomegaly, positive bowel sounds, no bruits, large pannus. Musculoskeletal: Moves all extremities weakly lower extremities minimal movement, limited range of motion , Extremities: Lower extremities extensive edema with erythema, no cyanosis, contusions or wounds, no clubbing Neurological: Alert and oriented x3, Lymphatic: No significant lymphadenopathy Skin: Warm and dry, no lesions, no rashes Psychological: Appropriate mood and behavior Medication: Medications: Continuous Medications ------ No continuous medications are active Scheduled Medications ------ 1. Acetaminophen: 975 mg Oral Every 8 Hours 2. Ascorbic Acid: 500 mg Oral Daily 3. Aspirin Enteric Coated: 81 mg Oral Daily 4. Atorvastatin: 20 mg Oral Daily 5. Baclofen: 20 mg Oral 3 Times a Day 6. Bumetanide: 0.5 mg Oral 2 Times a Day 7. Docusate 50 mg - Senna 8.6 m tablet(s) Oral 2 Times a Day 8. Donepezil: 5 mg Oral At Bedtime 9. Enoxaparin SubCutaneous: 60 mg SubCutaneous Every 12 Hours 10. Gabapentin: 300 mg Oral 2 Times a Day 11. Hydrocortisone 0.5% Topical: 1 application(s) Topical 2 Times a Day 12. Insulin Glargine (Lantus) Injectable: 55 unit(s) SubCutaneous Daily Before First Meal 13. Insulin Glargine (Lantus) Injectable: 35 unit(s) SubCutaneous At Bedtime 14. Insulin Lispro (HumaLOG) Injectable: 3 unit(s) SubCutaneous 3 Times a Day Before Meals 15. Insulin Lispro Moderate Corrective Scale: unit(s) SubCutaneous 4 Times a Day Insulin Timing 16. Lactobacillus: 1 each Oral Daily 17. Lidocaine 5% TransDermal: 1 patch TransDermal Every 24 Hours 18. Losartan: 50 mg Oral Daily 19. Magnesium Oxide: 400 mg Oral Daily 20. oxyCODONE Extended Release: 10 mg Oral Every 12 Hours 21. silver sulfADIAZINE 1% Topical: 1 application(s) Topical Daily 22. Technetium Tc 99m Tetrofosmin (MYOVIEW - Radiology Contrast): 30 milliCurie IntraVenous Push Once 23. Technetium Tc 99m Tetrofosmin (MYOVIEW - Radiology Contrast): 10 milliCurie IntraVenous Push Once 24. Vancomycin - RPh to Dose - IV Piggy Back: 1 each As Specified Variable PRN Medications ------ 1. Dextrose 50% in Water Injectable: 25 gram(s) IntraVenous Push Every 15 Minutes 2. Glucagon Injectable: 1 mg IntraMuscular Every 15 Minutes 3. hydrALAZINE (APRESOLINE) Injectable: 10 mg IntraVenous Push Every 8 Hours 4. Ondansetron Injectable: 4 mg IntraVenous Push Every 6 Hours 5. Sodium Chloride 0.9% Injectable Flush: 10 mL IntraVenous Flush Every 8 Hours and as Needed Currently Suspended Medications ------ 1. Apixaban: 5 mg Oral Every 12 Hours Recent Lab Results: Results: I have reviewed these laboratory results: Glucose_POCT 10-Feb-2021 07:20:00 ResultValue Glucose-POCT 171 H Complete Blood Count 09-Feb-2021 09:46:00 ResultValue White Blood Cell Count 4.6 Nucleated Erythrocyte Count 0.0 Red Blood Cell Count 3.41 L HGB 10.1 L HCT 33.0 L MCV 97 MCHC 30.6 L PLT 255 RDW-CV 15.5 H Basic Metabolic Panel 09-Feb-2021 09:46:00 ResultValue Glucose, Serum 204 H NA 147 H K 4.1 CL 109 H Bicarbonate, Serum 32 Anion Gap, Serum 10 BUN 21 CREAT 0.81 GFR-Non >60 GFR- >60 Calcium, Serum 8.1 L Culture, Miscellaneous, includes Gram Stain 08-Feb-2021 16:24:00 ResultValue Gram Stain 2+ GRANULOCYTES. 3+ MIXED BACTERIA Organism Staphylococcus aureus 3+IDENTIFICATION AND/ORANTIBIOTIC SUSCEPTIBILITYIN P (more content not included)... Normal [facility] GLUCOSE-POCTon 02-10-2021 Glucose [Mass/Vol] 239 mg/dL High 74 - 99 [facility] Comment on above: Performed By: #### G LAYNE #### [address] [address] Glucose [Mass/Vol] 171 mg/dL High 74 - 99 [facility] Comment on above: Performed By: #### G LAYNE #### [address] [address] BASIC METABOLIC PANEL 01-31 Anion gap [Moles/Vol] 10 mmol/L Normal 10 - 20 [facility] Comment on above: Performed By: #### B MP #### [address] [address] Calcium [Mass/Vol] 8.1 mg/dL Low 8.6 - 10.3 [facility] Comment on above: Performed By: #### B MP #### [address] [address] Chloride [Moles/Vol] 109 mmol/L High 98 - 107 [facility] Comment on above: Performed By: #### B MP #### [address] [address] Creatinine [Mass/Vol] 0.81 mg/dL Normal 0.50 - 1.05 [facility] Comment on above: Performed By: #### B MP #### [address] [place] [address] GFR- AM. >60 Normal >60 [facility] Comment on above: Result Comment: CALC ULATIONS OF ESTIMATED GFR ARE PERFORMED USING THE MDRD STUDY EQUATION FOR THE IDMS-TRACEABLE CREATININE METHODS. CLIN CHEM 2007;53:766-72 Performed By: #### B MP #### [address] [place] [address] GFR-NON AM. >60 Normal >60 [facility] Comment on above: Performed By: #### B MP #### [address] [place] [address] Glucose [Mass/Vol] 204 mg/dL High 74 - 99 [facility] Comment on above: Performed By: #### B MP #### [address] [place] [address] HCO3 (Bld) [Moles/Vol] 32 mmol/L Normal 21 - 32 [facility] Comment on above: Performed By: #### B MP #### [address] [place] [address] Potassium [Moles/Vol] 4.1 mmol/L Normal 3.5 - 5.3 [facility] Comment on above: Performed By: #### B MP #### [address] [place] [address] Sodium [Moles/Vol] 147 mmol/L High 136 - 145 [facility] Comment on above: Performed By: #### B MP #### [address] [place] [address] Urea nitrogen [Mass/Vol] 21 mg/dL Normal 6 - 23 [facility] Comment on above: Performed By: #### B MP #### [address] [place] [address] CBCon 02-09-2021 Erythrocyte distribution width (RBC) [Ratio] 15.5 % High 11.5 - 14.5 [facility] Comment on above: Performed By: #### B MP #### [address] [place] [address] Hematocrit (Bld) [Volume fraction] 33.0 % Low 36.0 - 46.0 [facility] Comment on above: Performed By: #### B MP #### [address] [address] Hemoglobin (Bld) [Mass/Vol] 10.1 g/dL Low 12.0 - 16.0 [facility] Comment on above: Performed By: #### B MP #### [address] [address] MCHC (RBC) [Mass/Vol] 30.6 g/dL Low 32.0 - 36.0 [facility] Comment on above: Performed By: #### B MP #### [address] [address] MCV (RBC) [Entitic vol] 97 fL Normal 80 - 100 [facility] Comment on above: Performed By: #### B MP #### [address] [address] NUCLEATED RBC 0.0 /100 WBC Normal 0.0 - 0.0 [facility] Comment on above: Performed By: #### B MP #### [address] [address] Platelets (Bld) [#/Vol] 255 10*3/uL Normal 150 - 450 [facility] Comment on above: Performed By: #### B MP #### [address] [address] RBC 3.41 x10E12/L Low 4.00 - 5.20 [facility] Comment on above: Performed By: #### B MP #### [address] [address] WBC (Bld) [#/Vol] 4.6 10*3/uL Normal 4.4 - 11.3 [facility] Comment on above: Performed By: #### B MP #### [address] [address] Daily Progress Note-Cardiolo siidro 02-09-2021 Daily Progress Note-Cardiology Service: Cardiology Subjective Data: SALAZAR COYLE is a 70 year old Female who is Hospital Day # 4. No acute overnight events. Objective Data: Objective Information: T PRBPSpO2 [id number]/6794% Date/Time02/09 5: 5: 5: 5: 5:22 Range(36.6C - 37.5C ) (59 - 68 ) (20 - 20 ) (143 - 160 )/ (66 - 72 ) (93% - 94% ) Highest temp of 37.5 C was recorded at 02/09 5:22 Pain reported at 02/09 10:03: 0 = None T PRBPSpO2 [id number]/6794% Date/Time02/09 5: 5: 5: 5: 5:22 Range(36.6C - 37.5C ) (59 - 68 ) (20 - 20 ) (143 - 160 )/ (66 - 72 ) (93% - 94% ) Highest temp of 37.5 C was recorded at 02/09 5:22 Physical Exam by System: Constitutional: NAD; severe morbid obesity Eyes: EOMI Head/Neck: no carotid bruits Respiratory/Thorax: fair air movement b/l Cardiovascular: regular rhythm, no significant murmurs Gastrointestinal: soft, nontender Extremities: 4+ edema RLE - warm to touch - significant sensitivity over lyons Neurological: AAOx3 Medication: Medications: Continuous Medications ------ No continuous medications are active Scheduled Medications ------ 1. Acetaminophen: 975 mg Oral Every 8 Hours 2. Ascorbic Acid: 500 mg Oral Daily 3. Aspirin Enteric Coated: 81 mg Oral Daily 4. Atorvastatin: 20 mg Oral Daily 5. Baclofen: 20 mg Oral 3 Times a Day 6. Bumetanide: 0.5 mg Oral 2 Times a Day 7. Docusate 50 mg - Senna 8.6 m tablet(s) Oral 2 Times a Day 8. Donepezil: 5 mg Oral At Bedtime 9. Enoxaparin SubCutaneous: 60 mg SubCutaneous Every 12 Hours 10. Gabapentin: 300 mg Oral 2 Times a Day 11. Hydrocortisone 0.5% Topical: 1 application(s) Topical 2 Times a Day 12. Insulin Glargine (Lantus) Injectable: 55 unit(s) SubCutaneous Daily Before First Meal 13. Insulin Glargine (Lantus) Injectable: 35 unit(s) SubCutaneous At Bedtime 14. Insulin Lispro (HumaLOG) Injectable: 3 unit(s) SubCutaneous 3 Times a Day Before Meals 15. Insulin Lispro Moderate Corrective Scale: unit(s) SubCutaneous 4 Times a Day Insulin Timing 16. Lactobacillus: 1 each Oral Daily 17. Lidocaine 5% TransDermal: 1 patch TransDermal Every 24 Hours 18. Magnesium Oxide: 400 mg Oral Daily 19. oxyCODONE Extended Release: 10 mg Oral Every 12 Hours 20. Piperacillin - Tazobactam 3.375 gram/Iso-osmotic 50 mL Premix IVPB: 50 mL IntraVenous Piggyback Every 6 Hours 21. silver sulfADIAZINE 1% Topical: 1 application(s) Topical Daily 22. Technetium Tc 99m Tetrofosmin (MYOVIEW - Radiology Contrast): 30 milliCurie IntraVenous Push Once 23. Technetium Tc 99m Tetrofosmin (MYOVIEW - Radiology Contrast): 10 milliCurie IntraVenous Push Once PRN Medications ------ 1. Dextrose 50% in Water Injectable: 25 gram(s) IntraVenous Push Every 15 Minutes 2. Glucagon Injectable: 1 mg IntraMuscular Every 15 Minutes 3. Ondansetron Injectable: 4 mg IntraVenous Push Every 6 Hours 4. Sodium Chloride 0.9% Injectable Flush: 10 mL IntraVenous Flush Every 8 Hours and as Needed Currently Suspended Medications ------ 1. Apixaban: 5 mg Oral Every 12 Hours Recent Lab Results: Results: CBC: 02/09/2021 09:46 \\ Hgb / \\ 10.1 L / WBC Plt 4.6 255 / Hct \\ / 33.0 L \\ RBC: 3.41 L MCV: 97 BMP: 02/09/2021 09:46 NA+ Cl- BUN / 147 H 109 H 21 / ------ Glucose - 204 H K+ HCO3- Creat \\ 4.1 32 0.81 \\ Calcium : 8.1 L Anion Gap : 10 Assessment and Plan: Code Status: Code StatusFull Code Assessment: 70-year-old woman with severe morbid obesity, bedridden x many years, presents with nonhealing wound of the right lower extremity consistent with CLTI. Cardiology consulted for preoperative risk stratification. #RLE osteomyelitis #Hypertension #PAF, on Eliquis -Patient denies chest pain, sob -Unable to complete nuclear perfusion stress test -Overall elevated risk from cardiac standpoint for an extensive vascular surgery if necessary -Do not believe cardiac testing will improve condition prior to surgery -Continue current medications -Can follow outpatient with vascular -Will sign off, please contact if further evaluation is needed Bhavik Tracy, DO Internal Medicine PGY-1 Please DOCHalo if any questions Attestation: Note Completion: I am a: Resident/Fellow Attending AttestationI saw and evaluated the patient. I personally obtained the arias and critical portions of the history and physical exam or was physically present for arias and critical portions performed by the resident/fellow. I reviewed the resident/fellows documentation and discussed the patient with the resident/fellow. I agree with the resident/fellows medical decision making as documented in the note. I personal (more content not included)... Normal [facility] Daily Progress Note-Medicine on 02-09-2021 Daily Progress Note-Medicine Consult Type: subsequent visit/care Service: Medicine Subjective Data: SALAZAR COYLE is a 70 year old Female who is Hospital Day # 4. Additional Information: Pleasant and cooperative with bedside exam. VS stable. She denies SOB and pain. Complains of extreme pain with minimal movements. She has longstanding lower extremity problem. Given patient's multiple comorbidities palliative care consulted. Unable to do stress test due to body habitus. High risk for an extensive vascular surgery Conservative care. Full code, waiting to hear back from daughter, patient reports she has advance directives just need to confirm details. Objective Data: Objective Information: T PRBPSpO2 [id number]/6794% Date/Time02/09 5: 5: 5: 5: 5:22 Range(36.6C - 37.5C ) (59 - 68 ) (20 - 20 ) (143 - 160 )/ (66 - 72 ) (93% - 94% ) Highest temp of 37.5 C was recorded at 02/09 5:22 Pain reported at 02/09 9:57: 0 = None Physical Exam by System: Constitutional: Well developed, awake/alert/oriented x3, no distress, cooperative Eyes: EOMI, clear sclera ENMT: mucous membranes moist, no apparent injury, no lesions seen Head/Neck: Neck supple, no apparent injury, trachea midline Respiratory/Thorax: Patent airways, CTAB, normal breath sounds with good chest expansion, thorax symmetric Cardiovascular: Regular rate and rhythm, no murmurs, normal S 1and S 2 Gastrointestinal: Nondistended, soft, non-tender, morbidly obese, +BS, no bruits Genitourinary: Jose draining clear yellow urine Musculoskeletal: ROM intact, no joint swelling, weakened strength, pt bedbound Extremities: normal extremities, no cyanosis, contusions or wounds, no clubbing, +BLE lymphedema Neurological: no focal deficit, pt bedbound, intact senses, motor, response and reflexes, normal strength Psychological: Appropriate mood and behavior Skin: Mild erythema over upper arms; BLE lymphedema with rough scaly appearance, fresh and dried serous draining sores, erythema, dried/scaly white cream noted on RLE, boot placed on right foot; petechial rash over left forearm, worst over inside wrist Medication: Medications: Continuous Medications ------ No continuous medications are active Scheduled Medications ------ 1. Acetaminophen: 975 mg Oral Every 8 Hours 2. Ascorbic Acid: 500 mg Oral Daily 3. Aspirin Enteric Coated: 81 mg Oral Daily 4. Atorvastatin: 20 mg Oral Daily 5. Baclofen: 20 mg Oral 3 Times a Day 6. Bumetanide: 0.5 mg Oral 2 Times a Day 7. Docusate 50 mg - Senna 8.6 m tablet(s) Oral 2 Times a Day 8. Donepezil: 5 mg Oral At Bedtime 9. Enoxaparin SubCutaneous: 60 mg SubCutaneous Every 12 Hours 10. Gabapentin: 300 mg Oral 2 Times a Day 11. Hydrocortisone 0.5% Topical: 1 application(s) Topical 2 Times a Day 12. Insulin Glargine (Lantus) Injectable: 55 unit(s) SubCutaneous Daily Before First Meal 13. Insulin Glargine (Lantus) Injectable: 35 unit(s) SubCutaneous At Bedtime 14. Insulin Lispro (HumaLOG) Injectable: 3 unit(s) SubCutaneous 3 Times a Day Before Meals 15. Insulin Lispro Moderate Corrective Scale: unit(s) SubCutaneous 4 Times a Day Insulin Timing 16. Lactobacillus: 1 each Oral Daily 17. Lidocaine 5% TransDermal: 1 patch TransDermal Every 24 Hours 18. Magnesium Oxide: 400 mg Oral Daily 19. oxyCODONE Extended Release: 10 mg Oral Every 12 Hours 20. Piperacillin - Tazobactam 3.375 gram/Iso-osmotic 50 mL Premix IVPB: 50 mL IntraVenous Piggyback Every 6 Hours 21. silver sulfADIAZINE 1% Topical: 1 application(s) Topical Daily 22. Technetium Tc 99m Tetrofosmin (MYOVIEW - Radiology Contrast): 30 milliCurie IntraVenous Push Once 23. Technetium Tc 99m Tetrofosmin (MYOVIEW - Radiology Contrast): 10 milliCurie IntraVenous Push Once PRN Medications ------ 1. Dextrose 50% in Water Injectable: 25 gram(s) IntraVenous Push Every 15 Minutes 2. Glucagon Injectable: 1 mg IntraMuscular Every 15 Minutes 3. Ondansetron Injectable: 4 mg IntraVenous Push Every 6 Hours 4. Sodium Chloride 0.9% Injectable Flush: 10 mL IntraVenous Flush Every 8 Hours and as Needed Currently Suspended Medications ------ 1. Apixaban: 5 mg Oral Every 12 Hours Recent Lab Results: Results: CBC: 02/09/2021 09:46 \\ Hgb / \\ 10.1 L / WBC Plt 4.6 255 / Hct \\ / 33.0 L \\ RBC: 3.41 L MCV: 97 BMP: 02/09/2021 09:46 NA+ Cl- BUN / 147 H 109 H 21 / ------ Glucose - 204 H K+ HCO3- Creat \\ 4.1 32 0.81 \\ Calcium : 8.1 L Anion Gap : 10 Assessment and Plan: Comorbidities: Comorbidityobesity Obesitymorbid obesity (BMI 40+) Code Status: Code StatusFull Code Assessment: # Right leg osteomyelitis, BLE cellulitis, stage II pressure ulce (more content not included)... Normal [facility] Daily Progress Note-Palliati ve Careon 02-09-2021 Daily Progress Note-Palliative Care Consult Type: subsequent visit/care Service: Palliative Care Subjective Data: SALAZAR COYLE is a 70 year old Female who is Hospital Day # 4. Additional Information: 0900AM: patient examined at bedside, no others present for exam. patient denies any symptoms but does report pain in her extremities when being moved. PPS: 30% HCPOA: Deidra, daughter code status: FULL CODE Objective Data: Objective Information: T PRBPSpO2 [id number]/6794% Date/Time02/09 5: 5: 5: 5: 5:22 Range(36.6C - 37.5C ) (59 - 68 ) (20 - 20 ) (143 - 160 )/ (66 - 72 ) (93% - 94% ) Highest temp of 37.5 C was recorded at 02/09 5:22 Pain reported at 02/08 21:10: 0 = None Physical Exam Narrative: Physical Exam: General Appearance: AAO x2-3 , not in acute distress Skin: skin color, texture, turgor normal; no suspicious rashes or lesions patient has multiple skin wounds on arrival being treated and followed by podiatry and ID Eyes : PERRL, EOM's intact, conjunctiva pink ENT: no oral thrush, no pharyngeal erythema or exudates Neck: no JVD, no lymphadenopathy Respiratory: lungs clear to auscultation; no wheezing, rhonchi, or crackles Heart: RRR without murmur, gallop, or rubs, no ectopy Abdomen: Nondistended, positive bowel sounds, soft, nontender Extremities: no edema Peripheral pulses: normal and present x 4 extremities Neuro: alert, coherent and conversant, no focal motor deficits patient is morbidly obese, very pleasant Medication: Medications: Continuous Medications ------ No continuous medications are active Scheduled Medications ------ 1. Acetaminophen: 975 mg Oral Every 8 Hours 2. Ascorbic Acid: 500 mg Oral Daily 3. Aspirin Enteric Coated: 81 mg Oral Daily 4. Atorvastatin: 20 mg Oral Daily 5. Baclofen: 20 mg Oral 3 Times a Day 6. Bumetanide: 0.5 mg Oral 2 Times a Day 7. Docusate 50 mg - Senna 8.6 m tablet(s) Oral 2 Times a Day 8. Donepezil: 5 mg Oral At Bedtime 9. Enoxaparin SubCutaneous: 60 mg SubCutaneous Every 12 Hours 10. Gabapentin: 300 mg Oral 2 Times a Day 11. Hydrocortisone 0.5% Topical: 1 application(s) Topical 2 Times a Day 12. Insulin Glargine (Lantus) Injectable: 55 unit(s) SubCutaneous Daily Before First Meal 13. Insulin Glargine (Lantus) Injectable: 35 unit(s) SubCutaneous At Bedtime 14. Insulin Lispro (HumaLOG) Injectable: 3 unit(s) SubCutaneous 3 Times a Day Before Meals 15. Insulin Lispro Moderate Corrective Scale: unit(s) SubCutaneous 4 Times a Day Insulin Timing 16. Lactobacillus: 1 each Oral Daily 17. Lidocaine 5% TransDermal: 1 patch TransDermal Every 24 Hours 18. Magnesium Oxide: 400 mg Oral Daily 19. oxyCODONE Extended Release: 10 mg Oral Every 12 Hours 20. Piperacillin - Tazobactam 3.375 gram/Iso-osmotic 50 mL Premix IVPB: 50 mL IntraVenous Piggyback Every 6 Hours 21. silver sulfADIAZINE 1% Topical: 1 application(s) Topical Daily 22. Technetium Tc 99m Tetrofosmin (MYOVIEW - Radiology Contrast): 30 milliCurie IntraVenous Push Once 23. Technetium Tc 99m Tetrofosmin (MYOVIEW - Radiology Contrast): 10 milliCurie IntraVenous Push Once PRN Medications ------ 1. Dextrose 50% in Water Injectable: 25 gram(s) IntraVenous Push Every 15 Minutes 2. Glucagon Injectable: 1 mg IntraMuscular Every 15 Minutes 3. Ondansetron Injectable: 4 mg IntraVenous Push Every 6 Hours 4. Sodium Chloride 0.9% Injectable Flush: 10 mL IntraVenous Flush Every 8 Hours and as Needed Currently Suspended Medications ------ 1. Apixaban: 5 mg Oral Every 12 Hours Recent Lab Results: Results: I have reviewed these laboratory results: Complete Blood Count 09-Feb-2021 09:46:00 ResultValue White Blood Cell Count 4.6 Nucleated Erythrocyte Count 0.0 Red Blood Cell Count 3.41 L HGB 10.1 L HCT 33.0 L MCV 97 MCHC 30.6 L PLT 255 RDW-CV 15.5 H Basic Metabolic Panel 09-Feb-2021 09:46:00 ResultValue Glucose, Serum 204 H NA 147 H K 4.1 CL 109 H Bicarbonate, Serum 32 Anion Gap, Serum 10 BUN 21 CREAT 0.81 GFR-Non >60 GFR- >60 Calcium, Serum 8.1 L Glucose_POCT 09-Feb-2021 07:11:00 ResultValue Glucose-POCT 156 H Radiology Results: Results: Impression: 1. Diffuse osteopenia. No obvious periosteal reaction is identified. If there is persistent clinical concern for osteomyelitis, MRI can be obtained for further evaluation. 2. Marked diffuse soft tissue swelling at the visualized right foot and right lower leg with interval increase in the overlying skin thickening. Air trapping in between the skin creases is limiting evaluation for soft tissue emphysema. Areas of lucency at the soft tissues along the dorsal aspect of the toes and lateral to the 5th metatarsal, please correlate with clinical exam (more content not included)... Normal [facility] Daily Progress Note-Podiatry on 02-09-2021 Daily Progress Note-Podiatry Service: Podiatry Subjective Data: SALAZAR COYLE is a 70 year old Female who is Hospital Day # 4. Overnight Events: Patient had an uneventful night. Additional Information: No new complaints. Baseline discomfort with the right extremity when it is moved. No constitutional symptoms. Interval notes reviewed. Objective Data: Objective Information: T PRBPSpO2 [id number]/7496% Date/Time02/09 13: 13: 5: 13: 13:36 Range(36.3C - 37.5C ) (59 - 65 ) (20 - 20 ) (147 - 180 )/ (67 - 74 ) (93% - 96% ) Highest temp of 37.5 C was recorded at 02/09 5:22 Pain reported at 02/09 14:23: 0 = None T PRBPSpO2 [id number]/7496% Date/Time02/09 13: 13: 5: 13: 13:36 Range(36.3C - 37.5C ) (59 - 65 ) (20 - 20 ) (147 - 180 )/ (67 - 74 ) (93% - 96% ) Highest temp of 37.5 C was recorded at 02/09 5:22 Pain reported at 02/09 14:23: 0 = None Medication: Medications: Continuous Medications ------ No continuous medications are active Scheduled Medications ------ 1. Acetaminophen: 975 mg Oral Every 8 Hours 2. Ascorbic Acid: 500 mg Oral Daily 3. Aspirin Enteric Coated: 81 mg Oral Daily 4. Atorvastatin: 20 mg Oral Daily 5. Baclofen: 20 mg Oral 3 Times a Day 6. Bumetanide: 0.5 mg Oral 2 Times a Day 7. Docusate 50 mg - Senna 8.6 m tablet(s) Oral 2 Times a Day 8. Donepezil: 5 mg Oral At Bedtime 9. Enoxaparin SubCutaneous: 60 mg SubCutaneous Every 12 Hours 10. Gabapentin: 300 mg Oral 2 Times a Day 11. Hydrocortisone 0.5% Topical: 1 application(s) Topical 2 Times a Day 12. Insulin Glargine (Lantus) Injectable: 55 unit(s) SubCutaneous Daily Before First Meal 13. Insulin Glargine (Lantus) Injectable: 35 unit(s) SubCutaneous At Bedtime 14. Insulin Lispro (HumaLOG) Injectable: 3 unit(s) SubCutaneous 3 Times a Day Before Meals 15. Insulin Lispro Moderate Corrective Scale: unit(s) SubCutaneous 4 Times a Day Insulin Timing 16. Lactobacillus: 1 each Oral Daily 17. Lidocaine 5% TransDermal: 1 patch TransDermal Every 24 Hours 18. Magnesium Oxide: 400 mg Oral Daily 19. oxyCODONE Extended Release: 10 mg Oral Every 12 Hours 20. Piperacillin - Tazobactam 3.375 gram/Iso-osmotic 50 mL Premix IVPB: 50 mL IntraVenous Piggyback Every 6 Hours 21. silver sulfADIAZINE 1% Topical: 1 application(s) Topical Daily 22. Technetium Tc 99m Tetrofosmin (MYOVIEW - Radiology Contrast): 30 milliCurie IntraVenous Push Once 23. Technetium Tc 99m Tetrofosmin (MYOVIEW - Radiology Contrast): 10 milliCurie IntraVenous Push Once PRN Medications ------ 1. Dextrose 50% in Water Injectable: 25 gram(s) IntraVenous Push Every 15 Minutes 2. Glucagon Injectable: 1 mg IntraMuscular Every 15 Minutes 3. Ondansetron Injectable: 4 mg IntraVenous Push Every 6 Hours 4. Sodium Chloride 0.9% Injectable Flush: 10 mL IntraVenous Flush Every 8 Hours and as Needed Currently Suspended Medications ------ 1. Apixaban: 5 mg Oral Every 12 Hours Recent Lab Results: Results: CBC: 02/09/2021 09:46 \\ Hgb / \\ 10.1 L / WBC Plt 4.6 255 / Hct \\ / 33.0 L \\ RBC: 3.41 L MCV: 97 BMP: 02/09/2021 09:46 NA+ Cl- BUN / 147 H 109 H 21 / ------ Glucose - 204 H K+ HCO3- Creat \\ 4.1 32 0.81 \\ Calcium : 8.1 L Anion Gap : 10 I have reviewed these laboratory results: Glucose_POCT Trending View [id number] 16:28:00 09-Feb-2021 11:31:00 09-Feb-2021 07:11:00 08-Feb-2021 19:43:00 [id number] H 228 H 156 H 235 H Complete Blood Count 09-Feb-2021 09:46:00 ResultValue White Blood Cell Count 4.6 Nucleated Erythrocyte Count 0.0 Red Blood Cell Count 3.41 L HGB 10.1 L HCT 33.0 L MCV 97 MCHC 30.6 L PLT 255 RDW-CV 15.5 H Basic Metabolic Panel 09-Feb-2021 09:46:00 ResultValue Glucose, Serum 204 H NA 147 H K 4.1 CL 109 H Bicarbonate, Serum 32 Anion Gap, Serum 10 BUN 21 CREAT 0.81 GFR-Non >60 GFR- >60 Calcium, Serum 8.1 L Culture, Miscellaneous, includes Gram Stain 08-Feb-2021 16:24:00 ResultValue Gram Stain 2+ GRANULOCYTES. 3+ MIXED BACTERIA Organism Staphylococcus aureus 3+ IDENTIFICATION AND/OR ANTIBIOTIC SUSCEPTIBILITY IN PROGRESS. A Culture, Miscellaneous, includes Gram Stain EARLY GROWTH, CULTURE IN PROGRESS. 2+ AEROBIC MIXED BACTERIA A Assessment and Plan: Code Status: Code StatusFull Code Assessment: Patient awake and alert. No acute distress voices no complaints. Dressing intact right foot. It appears to be offloaded. Movement to the right foot does cause discomfort. This is mostly extremity pain. Scant serous drainage noted lateral foot and plantar ulcer. No pus is evident. Fibrin base to the ulc (more content not included)... Normal [facility] GLUCOSE-POCTon 02-09-2021 Glucose [Mass/Vol] 235 mg/dL High 74 - 99 [facility] Comment on above: Performed By: #### G LAYNE ####[id number] [place] [address] Glucose [Mass/Vol] 224 mg/dL High 74 - 99 [facility] Comment on above: Performed By: #### G LAYNE ####[id number] [place] [address] Glucose [Mass/Vol] 228 mg/dL High 74 - 99 [facility] Comment on above: Performed By: #### G LAYNE ####[id number] [place] [address] Glucose [Mass/Vol] 156 mg/dL High 74 - 99 [facility] Comment on above: Performed By: #### G LAYNE #### [facility] [address] [place] [address] Consult-Palliative Careon Consult-Palliative Care Service: Service: Palliative Care Consult: Consult requested by (Attending Name): Bashir Lemon Reason: known to you, no viable surgical options, good candidate for palliaitve approach History of Present Illness: HPI: SALAZAR COYLE is a 70 year old Female with Pmhx of obesity, bedridden, chronic jose, HF, anemia, DM, HTN, chronic venous stasis presenting to [facility] from [facility] for right heel wound, leg wound. Patient admitted for vascular workup and ID evaluation for wounds. palliative care consulted for [facility] discussions. 1100AM: patient examined at bedside, no others present for exam. patient denies any symptoms but does report pain in her extremities when being moved. PPS: 30% HCPOA: Deidra, daughter code status: FULL CODE waiting to hear back from daughter, will FU with her in the morning. patient reports she has advance directives just need to confirm details. Review Family/Social History and ROS: Social History: Smoking Status: never smoker (1) Alcohol Use: denies(1) Drug Use: denies (1) Drug 2 Use: denies (1) Allergies: No Known Allergies: Objective: Objective Information: T PRBPSpO2 [id number]/6693% Date/Time02/08 13: 13: 5: 13: 13:45 Range(36C - 37.5C ) (68 - 70 ) (20 - 20 ) (140 - 143 )/ (64 - 66 ) (92% - 93% ) Highest temp of 37.5 C was recorded at 02/07 20:20 Physical Exam Narrative: Physical Exam: General Appearance: AAO x2-3 , not in acute distress Skin: skin color, texture, turgor normal; no suspicious rashes or lesions patient has multiple skin wounds on arrival being treated and followed by podiatry and ID Eyes : PERRL, EOM's intact, conjunctiva pink ENT: no oral thrush, no pharyngeal erythema or exudates Neck: no JVD, no lymphadenopathy Respiratory: lungs clear to auscultation; no wheezing, rhonchi, or crackles Heart: RRR without murmur, gallop, or rubs, no ectopy Abdomen: Nondistended, positive bowel sounds, soft, nontender Extremities: no edema Peripheral pulses: normal and present x 4 extremities Neuro: alert, coherent and conversant, no focal motor deficits patient is morbidly obese, very pleasant Assessment: SALAZAR COYLE is a 70 year old Female with Pmhx of obesity, bedridden, chronic jose, HF, anemia, DM, HTN, chronic venous stasis presenting to [facility] from [facility] for right heel wound, leg wound. Patient admitted for vascular workup and ID evaluation for wounds. palliative care consulted for [facility] discussions. PLAN: #advance care planning -GOC discussions ongoing-patient reports Deidra daughter is her HCPOA 1145am: attempted to call daughter Deidra to discuss code status, no answer. will FU tomorrow. -continue supportive measures -continue symptom mgmt Thank you for allowing us to participate in the care of this lady. Should you have any further questions or concerns regarding his care, please do not hesitate to contact us via [employer] (Kimberley Carr during weekdays work hours and Km Rodriguez for nights & weekends) Plan of Care Reviewed With: Plan of Care Reviewed With: patient Consult Status: Consult Order ID: [id number] Electronic Signatures: Kimberley Carr (METHOD CONSULTANT-MANAGER PRESENTATION) (Signed 08-Feb-2021 18:51) Authored: Service, History of Present Illness, Review Family/Social History and ROS, Allergies, Objective, Assessment/Recommendations , Note Completion Last Updated: 08-Feb-2021 18:51 by Kimberley Carr (METHOD CONSULTANT-MANAGER PRESENTATION) References: 1. Data Referenced From Consult-Vascular Surgery 07-Feb-2021 21:16 Normal [facility] Daily Progress Note-Cardiova scular Medicineon 02-08-2021 Daily Progress Note-Cardiovascular Medicine Service: Cardiovascular Medicine Subjective Data: SALAZAR COYLE is a 70 year old Female who is Hospital Day # 3. Denies having any chest pain. No acute issues overnight. Objective Data: Objective Information: T PRBPSpO2 [id number]/6693% Date/Time02/08 13: 13: 5: 13: 13:45 Range(36C - 37.5C ) (68 - 70 ) (20 - 20 ) (140 - 143 )/ (64 - 66 ) (92% - 93% ) Highest temp of 37.5 C was recorded at 02/07 20:20 Pain reported at 02/08 14:01: 0 = None Physical Exam by System: Constitutional: NAD; severe morbid obesity Eyes: EOMI Head/Neck: no carotid bruits Respiratory/Thorax: fair air movement b/l Cardiovascular: regular rhythm, no significant murmurs Gastrointestinal: soft, nontender Extremities: 4+ edema RLE - warm to touch - significant sensitivity over lyons Neurological: AAOx3 Medication: Medications: Continuous Medications ------ No continuous medications are active Scheduled Medications ------ 1. Acetaminophen: 975 mg Oral Every 8 Hours 2. Ascorbic Acid: 500 mg Oral Daily 3. Aspirin Enteric Coated: 81 mg Oral Daily 4. Atorvastatin: 20 mg Oral Daily 5. Baclofen: 20 mg Oral 3 Times a Day 6. Bumetanide: 0.5 mg Oral 2 Times a Day 7. Docusate 50 mg - Senna 8.6 m tablet(s) Oral 2 Times a Day 8. Donepezil: 5 mg Oral At Bedtime 9. Enoxaparin SubCutaneous: 60 mg SubCutaneous Every 12 Hours 10. Gabapentin: 300 mg Oral 2 Times a Day 11. Hydrocortisone 0.5% Topical: 1 application(s) Topical 2 Times a Day 12. Insulin Glargine (Lantus) Injectable: 55 unit(s) SubCutaneous Daily Before First Meal 13. Insulin Glargine (Lantus) Injectable: 35 unit(s) SubCutaneous At Bedtime 14. Insulin Lispro (HumaLOG) Injectable: 3 unit(s) SubCutaneous 3 Times a Day Before Meals 15. Insulin Lispro Moderate Corrective Scale: unit(s) SubCutaneous 4 Times a Day Insulin Timing 16. Lactobacillus: 1 each Oral Daily 17. Lidocaine 5% TransDermal: 1 patch TransDermal Every 24 Hours 18. Magnesium Oxide: 400 mg Oral Daily 19. oxyCODONE Extended Release: 10 mg Oral Every 12 Hours 20. Piperacillin - Tazobactam 3.375 gram/Iso-osmotic 50 mL Premix IVPB: 50 mL IntraVenous Piggyback Every 6 Hours 21. silver sulfADIAZINE 1% Topical: 1 application(s) Topical Daily 22. Technetium Tc 99m Tetrofosmin (MYOVIEW - Radiology Contrast): 30 milliCurie IntraVenous Push Once 23. Technetium Tc 99m Tetrofosmin (MYOVIEW - Radiology Contrast): 10 milliCurie IntraVenous Push Once PRN Medications ------ 1. Dextrose 50% in Water Injectable: 25 gram(s) IntraVenous Push Every 15 Minutes 2. Glucagon Injectable: 1 mg IntraMuscular Every 15 Minutes 3. Ondansetron Injectable: 4 mg IntraVenous Push Every 6 Hours 4. Sodium Chloride 0.9% Injectable Flush: 10 mL IntraVenous Flush Every 8 Hours and as Needed Currently Suspended Medications ------ 1. Apixaban: 5 mg Oral Every 12 Hours Recent Lab Results: Results: I have reviewed these laboratory results: Basic Metabolic Panel 07-Feb-2021 08:31:00 ResultValue Glucose, Serum 209 H NA 143 K 4.2 CL 107 Bicarbonate, Serum 28 Anion Gap, Serum 12 BUN 17 CREAT 0.80 GFR-Non >60 GFR- >60 Calcium, Serum 8.1 L Complete Blood Count 07-Feb-2021 08:31:00 ResultValue White Blood Cell Count 5.4 Nucleated Erythrocyte Count 0.0 Red Blood Cell Count 3.39 L HGB 10.2 L HCT 35.1 L MCV 104 H MCHC 29.1 L PLT 242 RDW-CV 15.3 H Sedimentation Rate, Erythrocyte 07-Feb-2021 08:31:00 ResultValue Sedimentation Rate, Erythrocyte 68 H C Reactive Protein, Serum 07-Feb-2021 08:31:00 ResultValue C Reactive Protein, Serum 5.35 A Radiology Results: Results: Impression: 1. Diffuse osteopenia. No obvious periosteal reaction is identified. If there is persistent clinical concern for osteomyelitis, MRI can be obtained for further evaluation. 2. Marked diffuse soft tissue swelling at the visualized right foot and right lower leg with interval increase in the overlying skin thickening. Air trapping in between the skin creases is limiting evaluation for soft tissue emphysema. Areas of lucency at the soft tissues along the dorsal aspect of the toes and lateral to the 5th metatarsal, please correlate with clinical exam to evaluate for ulcers. Xray Foot Complete Min 3 View [Feb 02 2021 7:48PM] Impression: 1. No radiographic evidence of acute cardiopulmonary process. Xray Chest 1 View [Feb 02 2021 7:35PM] Assessment and Plan: Code Status: Code StatusFull Code Assessment: 70-year-old woman with severe morbid obesity, bedridden x many years, presents with nonhealing wound of the right lower extremity consistent with CLTI. Given her nonambulatory state, patient is not a candidate for aggre (more content not included)... Normal [facility] Daily Progress Note-Infectio us Diseaseon 02-08-2021 Daily Progress Note-Infectious Disease Service: Infectious Disease Subjective Data: SALAZAR COYLE is a 70 year old Female who is Hospital Day # 3. Objective Data: Objective Information: T PRBPSpO2 [id number]/6693% Date/Time02/08 13: 13: 5: 13: 13:45 Range(36C - 37.5C ) (68 - 70 ) (20 - 20 ) (140 - 143 )/ (64 - 66 ) (92% - 93% ) Highest temp of 37.5 C was recorded at 02/07 20:20 Pain reported at 02/08 14:01: 0 = None Assessment and Plan: Code Status: Code StatusFull Code Assessment: SALAZAR COYLE is a 70 year old female with PMHx of morbid obesity, bedridden status with chronic Jose, HFpEF, anemia, diabetes, HTN, chronic leg lymphedema/chronic venous stasis complicated by leg wounds, right heel ulcer, severe osteoporosis of the right hip and knee (pt not a surgical candidate 2/2 comorbidities), chronic hypoxemic respiratory failure on 2 L home O2, chronic pain followed by palliative care and on chronic opioids, and paroxysmal atrial fibrillation. She was admitted 02/02 - 02/06/21 to [facility] from [facility] for right foot osteomyelitis which was treated with IV vancomycin and Zosyn. Bedside debridement was performed by podiatry and deep tissue culture was sent 02/04/21. (Blood cultures are negative x 72 hrs). She had extreme pain uncontrolled with medications during bedside dressing change. She had been refusing imaging tests and routine evaluations. Evidently she has been refusing to have anyone remove her bandage or touch her foot and screams out if anyone goes near her leg. There was concern that she may pose a significant anesthesia risk given her multiple comorbidities. Podiatry felt her to be at high risk of loss of limb and that she would benefit from TMA or BKA but recommend vascular workup first. She was unable to tolerate MONICA/TBI at [facility]. She was recommended transfer to a tertiary care center where more services are available for further management. Eliquis was held in the event of surgery. She denies pain (unless her right foot is moved), SOB, fevers. ID was consulted for antibiotics assistance. ESR and CRP remain elevated will treat her as osteomyelitis with Zosyn for 6 weeks. PMH: Per above PSH: Per above SH: denies etoh, recreational drug, or tobacco use FH: noncontributory Allergies: NKDA Current Medications: see above Review of Systems: 12 point review of systems was obtained and negative unless mentioned in HPI. Vital Signs: Reviewed Input/Output: Reviewed Oxygen requirements: Reviewed Physical Exam: GENERAL: Well developed, awake/alert/oriented x3, no distress, alert and cooperative, morbidly obese HEENT: AT/NC, EOMI grossly bilaterally, Normal Oropharynx, No Signs of Dehydration NECK: Normal Inspection, No JVD, No Lymphadenopathy CARDIOVASCULAR: RRR, no murmurs, 2+ equal pulses of the extremities, normal S1 and S 2 RESPIRATORY: Patent airways, distant breath sounds ABDOMEN: Soft, Non-Tender, Normal Bowel Sounds, No Distention, No organomegaly SKIN: bilateral dry scaly skin with necrosis of 5th digit on right foot with surrounding edema NEURO: A&O x 3, CN II-XII grossly intact, Normal Motor and Sensation, Normal Mood and Affect PSYCH: Appropriate mood and behavior Investigations: Labs, radiological imaging and cardiac work up were reviewed Assessment & Plan: Suspected right foot osteomyelitis #Bilateral cellulitis of both extremities #Stage II pressure ulcer on her right heel Zosyn day 8 of , s/p PICC line Patient will need to follow-up in 3 weeks in wound clinic anticipating DC to SNF and no surgery a this time. Attestation: Note Completion: I am a: Resident/Fellow Attending AttestationI saw and evaluated the patient. I personally obtained the arias and critical portions of the history and physical exam or was physically present for arias and critical portions performed by the resident/fellow. I reviewed the resident/fellows documentation and discussed the patient with the resident/fellow. I agree with the resident/fellows medical decision making as documented in the note. I personally evaluated the patient [id number] Electronic Signatures: Loli Kingston) (Signed 09-Feb-2021 08:38) Authored: Note Completion Co-Signer: Service, Subjective Data, Objective Data, Assessment and Plan, Note Completion Merle Hill (Resident)) (Signed 08-Feb-2021 15:54) Authored: Service, Subjective Data, Objective Data, Assessment and Plan, Note Completion Last Updated: 09-Feb-2021 08:38 by Loli Kingston) Normal [facility] Daily Progress Note-Medicine on 02-08-2021 Daily Progress Note-Medicine Service: Medicine Subjective Data: SALAZAR COYLE is a 70 year old Female who is Hospital Day # 3. Additional Information: Pleasant and cooperative with exam. VS stable. She denies SOB and pain. Complains of extreme pain with minimal movements. She has longstanding lower extremity problem. Given patient's multiple comorbidities palliative care consulted. Unable to do stress test. Conservative care. Objective Data: Objective Information: T PRBPSpO2 [id number]% Date/Time02/08 5: 5: 5: 5: 5:30 Range(36C - 37.5C ) (68 - 70 ) (20 - 20 ) (140 - 147 )/ (64 - 67 ) (92% - 92% ) Highest temp of 37.5 C was recorded at 02/07 13:16 Pain reported at 02/07 21:40: 0 = None Physical Exam by System: Constitutional: Well developed, awake/alert/oriented x3, no distress, cooperative Eyes: EOMI, clear sclera ENMT: mucous membranes moist, no apparent injury, no lesions seen Head/Neck: Neck supple, no apparent injury, trachea midline Respiratory/Thorax: Patent airways, CTAB, normal breath sounds with good chest expansion, thorax symmetric Cardiovascular: Regular rate and rhythm, no murmurs, normal S 1and S 2 Gastrointestinal: Nondistended, soft, non-tender, morbidly obese, +BS, no bruits Genitourinary: Jose draining clear yellow urine Musculoskeletal: ROM intact, no joint swelling, weakened strength, pt bedbound Extremities: normal extremities, no cyanosis, contusions or wounds, no clubbing, +BLE lymphedema Neurological: no focal deficit, pt bedbound, intact senses, motor, response and reflexes, normal strength Psychological: Appropriate mood and behavior Skin: Mild erythema over upper arms; BLE lymphedema with rough scaly appearance, fresh and dried serous draining sores, erythema, dried/scaly white cream noted on RLE, boot placed on right foot; petechial rash over left forearm, worst over inside wrist Medication: Medications: Continuous Medications ------ No continuous medications are active Scheduled Medications ------ 1. Acetaminophen: 975 mg Oral Every 8 Hours 2. Ascorbic Acid: 500 mg Oral Daily 3. Aspirin Enteric Coated: 81 mg Oral Daily 4. Atorvastatin: 20 mg Oral Daily 5. Baclofen: 20 mg Oral 3 Times a Day 6. Bumetanide: 0.5 mg Oral 2 Times a Day 7. Docusate 50 mg - Senna 8.6 m tablet(s) Oral 2 Times a Day 8. Donepezil: 5 mg Oral At Bedtime 9. Enoxaparin SubCutaneous: 60 mg SubCutaneous Every 12 Hours 10. Gabapentin: 300 mg Oral 2 Times a Day 11. Hydrocortisone 0.5% Topical: 1 application(s) Topical 2 Times a Day 12. Insulin Glargine (Lantus) Injectable: 55 unit(s) SubCutaneous Daily Before First Meal 13. Insulin Glargine (Lantus) Injectable: 35 unit(s) SubCutaneous At Bedtime 14. Insulin Lispro (HumaLOG) Injectable: 3 unit(s) SubCutaneous 3 Times a Day Before Meals 15. Insulin Lispro Moderate Corrective Scale: unit(s) SubCutaneous 4 Times a Day Insulin Timing 16. Lactobacillus: 1 each Oral Daily 17. Lidocaine 5% TransDermal: 1 patch TransDermal Every 24 Hours 18. Magnesium Oxide: 400 mg Oral Daily 19. oxyCODONE Extended Release: 10 mg Oral Every 12 Hours 20. Piperacillin - Tazobactam 3.375 gram/Iso-osmotic 50 mL Premix IVPB: 50 mL IntraVenous Piggyback Every 6 Hours 21. silver sulfADIAZINE 1% Topical: 1 application(s) Topical Daily 22. Technetium Tc 99m Tetrofosmin (MYOVIEW - Radiology Contrast): 30 milliCurie IntraVenous Push Once 23. Technetium Tc 99m Tetrofosmin (MYOVIEW - Radiology Contrast): 10 milliCurie IntraVenous Push Once PRN Medications ------ 1. Dextrose 50% in Water Injectable: 25 gram(s) IntraVenous Push Every 15 Minutes 2. Glucagon Injectable: 1 mg IntraMuscular Every 15 Minutes 3. Ondansetron Injectable: 4 mg IntraVenous Push Every 6 Hours 4. Sodium Chloride 0.9% Injectable Flush: 10 mL IntraVenous Flush Every 8 Hours and as Needed Currently Suspended Medications ------ 1. Apixaban: 5 mg Oral Every 12 Hours Recent Lab Results: Results: CBC: 02/07/2021 08:31 \\ Hgb / \\ 10.2 L / WBC Plt 5.4 242 / Hct \\ / 35.1 L \\ RBC: 3.39 L MCV: 104 H Assessment and Plan: Comorbidities: Comorbidityobesity Obesitymorbid obesity (BMI 40+) Code Status: Code StatusFull Code Assessment: # Right leg osteomyelitis, BLE cellulitis, stage II pressure ulcer on right heel - pt was admitted 02/02 - 02/06/21 to [facility] from [facility] for right foot infection - bedside debridement performed by podiatry and deep tissue culture sent 02/04/21 - IV vancomycin and Zosyn continued, PICC line ordered, anticipate 6-week course - there was concern she is an anesthesia risk given her multiple comorbidities, high risk of loss of limb - pt transferred here for consideration of TMA or BKA, vascular workup (more content not included)... Normal [facility] Daily Progress Note-Podiatry on 02-08-2021 Daily Progress Note-Podiatry Service: Podiatry Subjective Data: SALAZAR COYLE is a 70 year old Female who is Hospital Day # 3. Overnight Events: Patient had an uneventful night. Additional Information: Not tolerating dressing changes very well. Pain with the right foot especially the heel. Objective Data: Objective Information: T PRBPSpO2 [id number]/6592% Date/Time02/08 5: 5: 5: 5: 5:30 Range(36C - 37.5C ) (68 - 70 ) (20 - 20 ) (140 - 147 )/ (64 - 67 ) (92% - 92% ) Highest temp of 37.5 C was recorded at 02/07 13:16 Pain reported at 02/07 21:40: 0 = None T PRBPSpO2 [id number]/6592% Date/Time02/08 5: 5: 5: 5: 5:30 Range(36C - 37.5C ) (68 - 70 ) (20 - 20 ) (140 - 147 )/ (64 - 67 ) (92% - 92% ) Highest temp of 37.5 C was recorded at 02/07 13:16 Pain reported at 02/07 21:40: 0 = None Medication: Medications: 1. Technetium Tc 99m Tetrofosmin (MYOVIEW - Radiology Contrast): 30 milliCurie IntraVenous Push Once 2. Technetium Tc 99m Tetrofosmin (MYOVIEW - Radiology Contrast): 10 milliCurie IntraVenous Push Once ALTERNATIVE MEDICINES: 1. Lactobacillus: 1 each Oral Daily ANTI-INFECTIVES: 1. Piperacillin - Tazobactam 3.375 gram/Iso-osmotic 50 mL Premix IVPB: 50 mL IntraVenous Piggyback Every 6 Hours CARDIOVASCULAR AGENTS: 1. Bumetanide: 0.5 mg Oral 2 Times a Day CENTRAL NERVOUS SYSTEM AGENTS: 1. Acetaminophen: 975 mg Oral Every 8 Hours 2. Aspirin Enteric Coated: 81 mg Oral Daily 3. oxyCODONE Extended Release: 10 mg Oral Every 12 Hours 4. Gabapentin: 300 mg Oral 2 Times a Day 5. Ondansetron Injectable: 4 mg IntraVenous Push Every 6 Hours PRN 6. Donepezil: 5 mg Oral At Bedtime 7. Baclofen: 20 mg Oral 3 Times a Day COAGULATION MODIFIERS: 1. Enoxaparin SubCutaneous: 60 mg SubCutaneous Every 12 Hours GASTROINTESTINAL AGENTS: 1. Docusate 50 mg - Senna 8.6 m tablet(s) Oral 2 Times a Day METABOLIC AGENTS: 1. Insulin Glargine (Lantus) Injectable: 55 unit(s) SubCutaneous Daily Before First Meal 2. Insulin Glargine (Lantus) Injectable: 35 unit(s) SubCutaneous At Bedtime 3. Insulin Lispro (HumaLOG) Injectable: 3 unit(s) SubCutaneous 3 Times a Day Before Meals 4. Insulin Lispro Moderate Corrective Scale: unit(s) SubCutaneous 4 Times a Day Insulin Timing 5. Atorvastatin: 20 mg Oral Daily 6. Dextrose 50% in Water Injectable: 25 gram(s) IntraVenous Push Every 15 Minutes PRN 7. Glucagon Injectable: 1 mg IntraMuscular Every 15 Minutes PRN NUTRITIONAL PRODUCTS: 1. Magnesium Oxide: 400 mg Oral Daily 2. Sodium Chloride 0.9% Injectable Flush: 10 mL IntraVenous Flush Every 8 Hours and as Needed PRN 3. Ascorbic Acid: 500 mg Oral Daily TOPICAL AGENTS: 1. Hydrocortisone 0.5% Topical: 1 application(s) Topical 2 Times a Day 2. Lidocaine 5% TransDermal: 1 patch TransDermal Every 24 Hours 3. silver sulfADIAZINE 1% Topical: 1 application(s) Topical Daily Currently Suspended Medications ------ 1. Apixaban: 5 mg Oral Every 12 Hours Recent Lab Results: Results: I have reviewed these laboratory results: Glucose_POCT Trending View [id number] 07:20:00 07-Feb-2021 21:51:00 07-Feb-2021 16:25:00 07-Feb-2021 11:21:00 [id number] H 288 H 295 H 259 H Basic Metabolic Panel 07-Feb-2021 08:31:00 ResultValue Glucose, Serum 209 H NA 143 K 4.2 CL 107 Bicarbonate, Serum 28 Anion Gap, Serum 12 BUN 17 CREAT 0.80 GFR-Non >60 GFR- >60 Calcium, Serum 8.1 L Complete Blood Count 07-Feb-2021 08:31:00 ResultValue White Blood Cell Count 5.4 Nucleated Erythrocyte Count 0.0 Red Blood Cell Count 3.39 L HGB 10.2 L HCT 35.1 L MCV 104 H MCHC 29.1 L PLT 242 RDW-CV 15.3 H Sedimentation Rate, Erythrocyte 07-Feb-2021 08:31:00 ResultValue Sedimentation Rate, Erythrocyte 68 H C Reactive Protein, Serum 07-Feb-2021 08:31:00 ResultValue C Reactive Protein, Serum 5.35 A Radiology Results: Results: Impression: 1. Diffuse osteopenia. No obvious periosteal reaction is identified. If there is persistent clinical concern for osteomyelitis, MRI can be obtained for further evaluation. 2. Marked diffuse soft tissue swelling at the visualized right foot and right lower leg with interval increase in the overlying skin thickening. Air trapping in between the skin creases is limiting evaluation for soft tissue emphysema. Areas of lucency at the soft tissues along the dorsal aspect of the toes and lateral to the 5th metatarsal, please correlate with clinical exam to evaluate for ulcers. Xray Foot Complete Min 3 View [Feb 02 2021 7:48PM] Impression: 1. No radiographic evidence of acute cardiopulmonary process. Xray Chest 1 View [Feb 02 2021 7:35PM] Impression: Xray Foot Complete Min 3 View [Feb 02 2021 7:21PM] Assessment and Plan: C (more content not included)... Normal [facility] Discharge [id number] Discharge Profile2 Discharge Orders: Anticipated Discharge Date: Anticipated Discharge [id number] Problem List: Additional Dx: Cellulitis of left lower extremity: Catalog Name: Cellulitis of left lower limb Cellulitis of right lower extremity: Catalog Name: Cellulitis of right lower limb Osteomyelitis: Catalog Name: Osteomyelitis, unspecified Medical History: Chronic pain: Catalog Name: Other chronic pain DNAR: DNAR Status: none Activity: activity as tolerated. Diet: Dietdiabetic/carbohydrate counted Diabetic/Carbohydrate [id number]/Carb meal, 30gram/Carb snack (1600-1800cals) Labs 1: Lab Test(s)CBC with dif, Comprehensive Metabolic Panel, CRP, ESR Date To Be Drawnevery weekly Call Results Todr. [place] Fax Results [phone] Wound Care 1: Other InstructionsBLE: daily cleanse with Vashe, apply Silvadene and alginate dressing once daily. Right foot, daily cleanse with vasche, apply Silvadene and alginate dressing once daily, keep Mepilex on the right heel, keep pressure off the right heel. Line Care (Gold Form or Patient Managed): Line Care for Adults. Access Type: PICC. Site: Right. Sodium Chloride 0.9% Injectable 10 mL Intravenous flush every 8 hours and as needed - via PICC. Notify MD if line becomes sluggish to draw or flush. Do not use arm that contains the line for BP or phlebotomy. Notify MD of pain and/or swelling in PICC arm, shoulder and/or neck. Notify MD of temp > 100.2 F, shortness of breath, elevated heart rate or abnormal rhythm. Notify MD of bleeding, swelling, purluent draining at exit site, and/or catheter dislodgement. Change transparent dressing, stat lock and biopatch every 7 days and as needed. Cleanse with chloraprep. Use betadine only if patient has allergy to chloraprep. Change 24 hours after initial insertion.. Flush PICC before and after intermittent medication infusion with 0.9% saline. Use SASH method for lines without fluids continuously infusing: Saline, Administer Med, Saline, Heparin flush. Measure mid-upper arm circumference. Measure external catheter length. Catheter Care: Typeindwelling Additional Orders: Blood Glucose MonitoringACHS Additional Instructions Thank you for choosing [facility] - it has been a pleasure taking part in your medical care. Please follow up with your Primary Medical Physician within 1 week of discharge and any specialists as noted within 1-2 weeks for further workup. If your symptoms should persist or worsen, please return immediately to the nearest Emergency Room for further care. If you have any questions about the care you received please call [facility] at . Additional Instructions *You have been started on a new medication, please carefully review dosing regimen. Hospital Course (Home Care/Gold Form): Hospital Course: Hospital Course: include significant abnormal lab values SALAZAR COYLE is a 70 year old female with PMHx of morbid obesity, bedridden status with chronic Jose, HFpEF, anemia, diabetes, HTN, chronic leg lymphedema/chronic venous stasis complicated by leg wounds, right heel ulcer, severe osteoporosis of the right hip and knee (pt not a surgical candidate 2/2 comorbidities), chronic hypoxemic respiratory failure on 2 L home O2, chronic pain followed by palliative care and on chronic opioids, and paroxysmal atrial fibrillation. She was admitted 02/02 - 02/06/21 to [facility] from [facility] for right foot osteomyelitis which was treated with IV vancomycin and Zosyn. Bedside debridement was performed by podiatry and deep tissue culture was sent 02/04/21. (Blood cultures are negative x 72 hrs). She had extreme pain uncontrolled with medications during bedside dressing change. She had been refusing imaging tests and routine evaluations. Evidently she has been refusing to have anyone remove her bandage or touch her foot and screams out if anyone goes near her leg. There was concern that she may pose a significant anesthesia risk given her multiple comorbidities. Podiatry felt her to be at high risk of loss of limb and that she would benefit from TMA or BKA but recommend vascular workup first. She was unable to tolerate MONICA/TBI at [facility]. She was recommended transfer to a tertiary care center where more services are available for further management. She was admitted to [facility] om 02/06/21. Case has been discussed with vascular surgery as well as cardiology and medicine at [facility]. Pt has longstanding lower extremity problem. Given patient's multiple comorbidities will recommend conservetive care by way of local wound care as she tolerates and antibiotic therapy. Off load the heel. Unable to do stress test due to body habitus. High risk for an extensive vascular surgery Conservative care. Based on the right foot wound culture, that (more content not included)... Normal [facility] GLUCOSE-POCTon 02-08-2021 Glucose [Mass/Vol] 235 mg/dL High 74 - 99 [facility] Comment on above: Performed By: #### G LAYNE #### [facility] [address] [place] [address] Glucose [Mass/Vol] 229 mg/dL High 74 - 99 [facility] Comment on above: Performed By: #### G LAYNE ####[facility] [place] [address] Glucose [Mass/Vol] 195 mg/dL High 74 - 99 [facility] Comment on above: Performed By: #### B MP #### [facility] [address] [place] [address] Glucose [Mass/Vol] 165 mg/dL High 74 - 99 [facility] Comment on above: Performed By: #### G LAYNE ####[facility] [place] [address] MISCELLANEOUS CULT./SM.BACT. on 02-08-2021 MISCELLANEOUS CULT./SM.BACT. PATIENT: SALAZAR COYLE LOCATION: [address]#: [id number] : 46 AGE: SEX: F ORDERED BY: JOSE SHULTZ SOURCE: WOUND/ABSCESS COLLECTED: 02/08/21 16:24 ANTIBIOTICS AT [facility].: RECEIVED : 02/08/21 23:09 SITE: right foot R E S U L T S GRAM STAIN FINAL 02/09/21 01:36 2+ GRANULOCYTES. 3+ MIXED BACTERIA MISCELLANEOUS CULT./SM.BACT. FINAL 02/10/21 14:49 2+ AEROBIC MIXED BACTERIA ISOLATE1 : Staphylococcus aureus 3+ METHICILLIN(OXACILLIN)RESI STANT METHICILLIN(OXACILLIN)RESI STANT STAPHYLOCOCCI ARE RESISTANT TO ALL CURRENTLY AVAILABLE PENICILLINS, BETA-LACTAM/BETA-LACTAMASE INHIBITOR COMBINATIONS (INCLUDING AMPICILLIN/SULBACTAM, AMOXICILLIN/CLAVULANATE AND PIPERACILLIN/TAZOBACTAM),C ARBAPENEMS AND CEPHALOSPORINS(EXCEPT CEFTAROLINE). Organism S aureus Antibiotic BP INTRP Clindamycin S Erythromycin R Oxacillin R Trimeth/Sulfa S Tetracycline S Vancomycin S S=SUSCEPTIBLE I=INTERMEDIATE R=RESISTANT SDD=SUSCEPTIBLE DOSE DEPENDENT NS=NONSUSCEPTIBLE X=REPORTED IN ERROR Normal [facility] Comment on above: Performed By: #### M [facility] ####[id number] [place] [id number] Order Reconciliationon 02-08 Order Reconciliation Page 1 Discharge Reconciliation Document Reconciliation Type: Discharge requested on behalf of Cristiane Poon (Advanced Practice Nurse) done by Cristiane Poon ([facility]) Discharge - Partial Reconciliation: 08-Feb-2021 14:13 by: Merle Hill ( (Resident)) Discharge - Reconciliation: 10-Feb-2021 14:03 by: Cristiane Poon ([facility]) Discharge - Reset to Incomplete: 10-Feb-2021 14:08 by: Cristiane Poon ([facility]) Discharge - Reconciliation: 10-Feb-2021 14:10 by: Cristiane Poon ([facility]) Discharge - Reset to Incomplete: 10-Feb-2021 14:13 by: Cristiane Poon ([facility]) Discharge - Reconciliation: 10-Feb-2021 14:14 by: Cristiane Poon ([facility]) Discharge - Reset to Incomplete: 10-Feb-2021 14:16 by: Cristiane Poon ([facility]) Discharge - Reconciliation: 10-Feb-2021 14:18 by: Cristiane Poon ([facility]) Discharge - Reset to Incomplete: 10-Feb-2021 14:24 by: Cristiane Poon ([facility]) Discharge - Reconciliation: 10-Feb-2021 14:27 by: Cristiane Poon ([facility]) Discharge - Reset to Incomplete: 10-Feb-2021 14:28 by: Cristiane Poon ([facility]) Discharge - Reconciliation: 10-Feb-2021 14:38 by: Cristiane Poon ([facility]) Home Medications EnteredHOME MEDICATIONS AT DISCHARGE DateReconciliation Comment/ Additional Information ascorbic acid 500 mg oral tablet 1 tab(s) orally once a day 05-Aug-2019 16:14 ascorbic acid 500 mg oral tablet 1 tab(s) orally once a day 05-Aug-2019 16:14 ascorbic acid 500 mg oral tablet is continued as ascorbic acid 500 mg oral tablet aspirin 81 mg oral delayed release tablet 1 tab(s) orally once a day 14-Aug-2019 17:06 aspirin 81 mg oral delayed release tablet 1 tab(s) orally once a day 14-Aug-2019 17:06 aspirin 81 mg oral delayed release tablet is continued as aspirin 81 mg oral delayed release tablet baclofen 10 mg oral tablet 2 tab(s) orally 3 times a day 14-Aug-2019 17:07 baclofen 10 mg oral tablet 2 tab(s) orally 3 times a day 14-Aug-2019 17:07 baclofen 10 mg oral tablet is continued as baclofen 10 mg oral tablet Bumex 0.5 mg oral tablet 1 tab(s) orally 2 times a day 02-Feb-2021 18:26 Bumex 0.5 mg oral tablet 1 tab(s) orally 2 times a day 02-Feb-2021 18:26 Bumex 0.5 mg oral tablet is continued as Bumex 0.5 mg oral tablet donepezil 5 mg oral tablet 1 tab(s) orally once a day (at bedtime) 17-Mar-2020 11:01 donepezil 5 mg oral tablet 1 tab(s) orally once a day (at bedtime) 17-Mar-2020 11:01 donepezil 5 mg oral tablet is continued as donepezil 5 mg oral tablet Eliquis 5 mg oral tablet 1 tab(s) orally 2 times a day 17-Mar-2020 11:08 Eliquis 5 mg oral tablet 1 tab(s) orally 2 times a day 17-Mar-2020 11:08 Eliquis 5 mg oral tablet is continued as Eliquis 5 mg oral tablet gabapentin 300 mg oral capsule 1 cap(s) orally 2 times a day 14-Aug-2019 17:06 gabapentin 300 mg oral capsule 1 cap(s) orally 2 times a day 14-Aug-2019 17:06 gabapentin 300 mg oral capsule is continued as gabapentin 300 mg oral capsule insulin lispro 100 units/mL subcutaneous solution subcutaneous 3 times a day (before meals) 02-Feb-2021 18:32 insulin lispro 100 units/mL subcutaneous solution subcutaneous 3 times a day (before meals) 02-Feb-2021 18:32 insulin lispro 100 units/mL subcutaneous solution is continued as insulin lispro 100 units/mL subcutaneous solution lactobacillus acidophilus oral tablet orally 06-Feb-2021 09:12 lactobacillus acidophilus oral tablet orally 06-Feb-2021 09:12 lactobacillus acidophilus oral tablet is continued as lactobacillus acidophilus oral tablet Lantus 100 units/mL subcutaneous solution unit(s) subcutaneous 2 times a day. 55 units in AM and 35 units in PM 02-Feb-2021 18:33 Lantus 100 units/mL subcutaneous solution unit(s) subcutaneous 2 times a day. 55 units in AM and 35 units in PM 02-Feb-2021 18:33 Lantus 100 units/mL subcutaneous solution is continued as Lantus 100 units/mL subcutaneous solution lidocaine 4% patch Apply topically to affected area once a day (apply 1 to left thigh and 1 to right hip) 17-Mar-2020 11:07 lidocaine 4% patch Apply topically to affected area once a day (apply 1 to left thigh and 1 to right hip) 17-Mar-2020 11:07 lidocaine 4% patch is continued as lidocaine 4% patch Lipitor 20 mg oral tablet 1 tab(s) orally once a day 02-Feb-2021 18:33 Lipitor 20 mg oral tablet 1 tab(s) orally once a day 02-Feb-2021 18:33 Lipitor 20 mg oral tablet is continued as Lipitor 20 mg oral tablet magnesium oxide 400 mg (241.3 mg elemental magnesium) oral tablet 1 tab(s) orally once a day 14-Aug-2019 17:07 magnesium oxide 400 mg (241.3 mg elemental magnesium) oral tablet 1 tab(s) orally once a day 14-Aug-2019 17:07 magnesium oxide 400 mg (241.3 mg elemental magnesium) oral tablet is continued as magnesium oxide 400 mg (241.3 mg elemental magnesium) oral tablet metFORMIN 1000 mg oral tablet 1 tab(s) orally 2 times a day 17-Mar-2020 11:10 metFORMIN 1000 mg oral tablet 1 tab(s) orally 2 times a day 1 (more content not included)... Normal [facility] BASIC METABOLIC PANELon 11-0 Anion gap [Moles/Vol] 12 mmol/L Normal - [facility] Comment on above: Performed By: #### B MP #### [facility] [address] [place] [address] Calcium [Mass/Vol] 8.1 mg/dL Low 8.6 - 10.3 [facility] Comment on above: Performed By: #### B MP #### [address] [address] Chloride [Moles/Vol] 107 mmol/L Normal 98 - 107 [facility] Comment on above: Performed By: #### B MP #### [address] [address] Creatinine [Mass/Vol] 0.80 mg/dL Normal 0.50 - 1.05 [facility] Comment on above: Performed By: #### B MP #### [address] [address] GFR- AM. >60 Normal >60 [facility] Comment on above: Result Comment: CALC ULATIONS OF ESTIMATED GFR ARE PERFORMED USING THE MDRD STUDY EQUATION FOR THE IDMS-TRACEABLE CREATININE METHODS. CLIN CHEM 2007;53:766-72 Performed By: #### B MP #### [address] [address] GFR-NON AM. >60 Normal >60 [facility] Comment on above: Performed By: #### B MP #### [address] [address] Glucose [Mass/Vol] 209 mg/dL High 74 - 99 [facility] Comment on above: Performed By: #### B MP #### [address] [address] HCO3 (Bld) [Moles/Vol] 28 mmol/L Normal 21 - 32 [facility] Comment on above: Performed By: #### B MP #### [address] [address] Potassium [Moles/Vol] 4.2 mmol/L Normal 3.5 - 5.3 [facility] Comment on above: Performed By: #### B MP #### [address] [address] Sodium [Moles/Vol] 143 mmol/L Normal 136 - 145 [facility] Comment on above: Performed By: #### B MP #### [address] [address] [place] [address] Urea nitrogen [Mass/Vol] 17 mg/dL Normal 6 - 23 [facility] Comment on above: Performed By: #### B MP #### [facility] [address] [place] [address] C-REACTIVE PROTEINon 021 C-REACTIVE PROTEIN 5.35 mg/dL Abnormal [facility] Comment on above: Result Comment: REF VALUE < 1.00 Performed By: #### C RP #### [address] [address] CBCon 02-07-2021 Erythrocyte distribution width (RBC) [Ratio] 15.3 % High 11.5 - 14.5 [facility] Comment on above: Performed By: #### C BC ####[address] [address] Hematocrit (Bld) [Volume fraction] 35.1 % Low 36.0 - 46.0 [facility] Comment on above: Performed By: #### C BC ####[facility] [place] [address] Hemoglobin (Bld) [Mass/Vol] 10.2 g/dL Low 12.0 - 16.0 [facility] Comment on above: Performed By: #### C BC ####[address] [address] MCHC (RBC) [Mass/Vol] 29.1 g/dL Low 32.0 - 36.0 [facility] Comment on above: Performed By: #### C BC ####[address] [address] MCV (RBC) [Entitic vol] 104 fL High 80 - 100 [facility] Comment on above: Performed By: #### C BC ####[address] [address] NUCLEATED RBC 0.0 /100 WBC Normal 0.0 - 0.0 [facility] Comment on above: Performed By: #### C BC ####[address] [address] Platelets (Bld) [#/Vol] 242 10*3/uL Normal 150 - 450 [facility] Comment on above: Performed By: #### C BC ####[facility] [place] [address] RBC 3.39 x10E12/L Low 4.00 - 5.20 [facility] Comment on above: Performed By: #### C BC ####[facility] [place] [address] WBC (Bld) [#/Vol] 5.4 10*3/uL Normal 4.4 - 11.3 [facility] Comment on above: Performed By: #### C BC ####[facility] [place] [address] Consult-Cardiologyon 021 Consult-Cardiology Service: Service: Cardiology Consult: Consult requested by (Attending Name): Bashir Lemon Reason: preop clearance History of Present Illness: Admission Reason: RLE CLTI HPI: SALAZAR COYLE is a 70 year old Female with severe morbid obesity, bedridden times many years, chronic indwelling Jose, HFpEF, anemia, diabetes, hypertension, chronic lymphedema and venous stasis, chronic hypoxic respiratory failure on home O2, pAF. Presents as a transfer from [facility] for nonhealing ulcer of the right lower extremity. Significant pain is present in the right leg, patient reports it is everywhere in the right leg". She has been declined for right hip and knee replacement due to nonambulatory status. I had an extensive discussion with the patient regarding her ambulation. She does not even transfer out of bed with assistance. She uses bedpans for bowel movements at her nursing facility. PMH: As above. SH: Denies alcohol, tobacco use. Permanent nursing facility resident. FH: Noncontributory. ROS: Otherwise negative aside from above. Review Family/Social History and ROS: Social History: Smoking Status: never smoker (1) Alcohol Use: denies(1) Drug Use: denies (1) Drug 2 Use: denies (1) Allergies: No Known Allergies: Objective: Objective Information: T PRBPSpO2 Value37.67568411/6792% Date/Time02/07 13: 13: 13: 13:1611/8 13:16 Range(36.4C - 37.8C ) (55 - 79 ) (20 - 20 ) (142 - 147 )/ (64 - 67 ) (92% - 93% ) Highest temp of 37.8 C was recorded at 11 21:00 Physical Exam by System: Constitutional: NAD; severe morbid obesity Eyes: EOMI Head/Neck: no carotid bruits Respiratory/Thorax: fair air movement b/l Cardiovascular: regular rhythm, no significant murmurs Gastrointestinal: soft, nontender Extremities: 4+ edema RLE - warm to touch - significant sensitivity over lyons Neurological: AAOx3 Medications: Medications: Continuous Medications ------ No continuous medications are active Scheduled Medications ------ 1. Acetaminophen: 975 mg Oral Every 8 Hours 2. Ascorbic Acid: 500 mg Oral Daily 3. Aspirin Enteric Coated: 81 mg Oral Daily 4. Atorvastatin: 20 mg Oral Daily 5. Baclofen: 20 mg Oral 3 Times a Day 6. Bumetanide: 0.5 mg Oral 2 Times a Day 7. Docusate 50 mg - Senna 8.6 m tablet(s) Oral 2 Times a Day 8. Donepezil: 5 mg Oral At Bedtime 9. Enoxaparin SubCutaneous: 60 mg SubCutaneous Every 12 Hours 10. Gabapentin: 300 mg Oral 2 Times a Day 11. Hydrocortisone 0.5% Topical: 1 application(s) Topical 2 Times a Day 12. Insulin Glargine (Lantus) Injectable: 55 unit(s) SubCutaneous Daily Before First Meal 13. Insulin Glargine (Lantus) Injectable: 35 unit(s) SubCutaneous At Bedtime 14. Insulin Lispro (HumaLOG) Injectable: 3 unit(s) SubCutaneous 3 Times a Day Before Meals 15. Insulin Lispro Moderate Corrective Scale: unit(s) SubCutaneous 4 Times a Day Insulin Timing 16. Lactobacillus: 1 each Oral Daily 17. Lidocaine 5% TransDermal: 1 patch TransDermal Every 24 Hours 18. Magnesium Oxide: 400 mg Oral Daily 19. oxyCODONE Extended Release: 10 mg Oral Every 12 Hours 20. Piperacillin - Tazobactam 3.375 gram/Iso-osmotic 50 mL Premix IVPB: 50 mL IntraVenous Piggyback Every 6 Hours 21. silver sulfADIAZINE 1% Topical: 1 application(s) Topical Daily 22. Technetium Tc 99m Tetrofosmin (MYOVIEW - Radiology Contrast): 30 milliCurie IntraVenous Push Once 23. Technetium Tc 99m Tetrofosmin (MYOVIEW - Radiology Contrast): 10 milliCurie IntraVenous Push Once PRN Medications ------ 1. Dextrose 50% in Water Injectable: 25 gram(s) IntraVenous Push Every 15 Minutes 2. Glucagon Injectable: 1 mg IntraMuscular Every 15 Minutes 3. Ondansetron Injectable: 4 mg IntraVenous Push Every 6 Hours 4. Sodium Chloride 0.9% Injectable Flush: 10 mL IntraVenous Flush Every 8 Hours and as Needed Currently Suspended Medications ------ 1. Apixaban: 5 mg Oral Every 12 Hours Recent Lab Results: Results: I have reviewed these laboratory results: Basic Metabolic Panel 07-Feb-2021 08:31:00 ResultValue Glucose, Serum 209 H NA 143 K 4.2 CL 107 Bicarbonate, Serum 28 Anion Gap, Serum 12 BUN 17 CREAT 0.80 GFR-Non >60 GFR- >60 Calcium, Serum 8.1 L Complete Blood Count 07-Feb-2021 08:31:00 ResultValue White Blood Cell Count 5.4 Nucleated Erythrocyte Count 0.0 Red Blood Cell Count 3.39 L HGB 10.2 L HCT 35.1 L MCV 104 H MCHC 29.1 L PLT 242 RDW-CV 15.3 H Sedimentation Rate, Erythrocyte 07-Feb-2021 08:31:00 ResultValue Sedimentation Rate, Erythrocyte 68 H C Reactive Protein, Serum 07-Feb-2021 08:31:00 ResultValue C Reactive Protein, Serum 5.35 A Radiology Results: Results: Impression: 1. Diffuse osteo (more content not included)... Normal [facility] Consult-Infectious Diseaseon 02-07-2021 Consult-Infectious Disease Service: Service: Infectious Disease Consult: Consult requested by (Attending Name): Bashir Lemon Reason: right foot osteomyelitis History of Present Illness: HPI: SALAZAR COYLE is a 70 year old Female Review Family/Social History and ROS: Social History: Smoking Status: never smoker (1) Alcohol Use: denies(1) Drug Use: denies (1) Drug 2 Use: denies (1) Allergies: No Known Allergies: Assessment: SALAZAR COYLE is a 70 year old female with PMHx of morbid obesity, bedridden status with chronic Jose, HFpEF, anemia, diabetes, HTN, chronic leg lymphedema/chronic venous stasis complicated by leg wounds, right heel ulcer, severe osteoporosis of the right hip and knee (pt not a surgical candidate 2/2 comorbidities), chronic hypoxemic respiratory failure on 2 L home O2, chronic pain followed by palliative care and on chronic opioids, and paroxysmal atrial fibrillation. She was admitted 02/02 - 02/06/21 to [facility] from [facility] for right foot osteomyelitis which was treated with IV vancomycin and Zosyn. Bedside debridement was performed by podiatry and deep tissue culture was sent 02/04/21. (Blood cultures are negative x 72 hrs). She had extreme pain uncontrolled with medications during bedside dressing change. She had been refusing imaging tests and routine evaluations. Evidently she has been refusing to have anyone remove her bandage or touch her foot and screams out if anyone goes near her leg. There was concern that she may pose a significant anesthesia risk given her multiple comorbidities. Podiatry felt her to be at high risk of loss of limb and that she would benefit from TMA or BKA but recommend vascular workup first. She was unable to tolerate MONICA/TBI at [facility]. She was recommended transfer to a tertiary care center where more services are available for further management. Eliquis was held in the event of surgery. She denies pain (unless her right foot is moved), SOB, fevers. ID was consulted for antibiotics assistance. ESR and CRP remain elevated will treat her as osteomyelitis with Zosyn for 6 weeks. PMH: Per above PSH: Per above SH: denies etoh, recreational drug, or tobacco use FH: noncontributory Allergies: NKDA Current Medications: see above Review of Systems: 12 point review of systems was obtained and negative unless mentioned in HPI. Vital Signs: Reviewed Input/Output: Reviewed Oxygen requirements: Reviewed Physical Exam: GENERAL: Well developed, awake/alert/oriented x3, no distress, alert and cooperative, morbidly obese HEENT: AT/NC, EOMI grossly bilaterally, Normal Oropharynx, No Signs of Dehydration NECK: Normal Inspection, No JVD, No Lymphadenopathy CARDIOVASCULAR: RRR, no murmurs, 2+ equal pulses of the extremities, normal S1 and S 2 RESPIRATORY: Patent airways, distant breath sounds ABDOMEN: Soft, Non-Tender, Normal Bowel Sounds, No Distention, No organomegaly SKIN: bilateral dry scaly skin with necrosis of 5th digit on right foot with surrounding edema NEURO: A&O x 3, CN II-XII grossly intact, Normal Motor and Sensation, Normal Mood and Affect PSYCH: Appropriate mood and behavior Investigations: Labs, radiological imaging and cardiac work up were reviewed Assessment & Plan: Suspected right foot osteomyelitis #Bilateral cellulitis of both extremities #Stage II pressure ulcer on her right heel Zosyn day 7 of , will order PICC line Patient will need to follow-up in 3 weeks in wound clinic Surgical recommendations per podiatry, however patient would like to try antibiotics first. Consult Status: Consult Order ID: [id number] Attestation: Note Completion: I am a: Resident/Fellow Attending AttestationI saw and evaluated the patient. I personally obtained the arias and critical portions of the history and physical exam or was physically present for arias and critical portions performed by the resident/fellow. I reviewed the resident/fellows documentation and discussed the patient with the resident/fellow. I agree with the resident/fellows medical decision making as documented in the note. I personally evaluated the patient [id number] Electronic Signatures: Loli Kingston) (Signed 08-Feb-2021 08:19) Authored: Note Completion Co-Signer: Service, History of Present Illness, Review Family/Social History and ROS, Allergies, Assessment/Recommendations , Note Completion Merle Hill (Resident)) (Signed 07-Feb-2021 13:14) Authored: Service, History of Present Illness, Review Family/Social History and ROS, Allergies, Assessment/Recommendations , Note Completion Last Updated: 08-Feb-2021 08:19 by Loli Kingston) References: 1. Data Referenced From Consult-Podiatry 07-Feb-2021 11:17 Normal [facility] Consult-Podiatryon Consult-Podiatry Service: Service: Podiatry Consult: Consult requested by (Attending Name): Bashir Lemon Reason: right foot osteomyelitis History of Present Illness: HPI: SALAZAR COYLE is a 70 year old Female transferred here for [facility] for further management of bilateral cellulitis and right foot infection. Patient states she has had an ulcer on her right foot for the past year. Apparently she is in an ECF and has had local wound care only. She admits to quite a bit of discomfort with the right lower extremity. Additionally she has a pressure ulcer on the right heel. The right forefoot with a large ulcerated area. She has not had any debridements. No surgical intervention. Both extremities are very sensitive to touch. She denies any fever or chills. Patient is nonambulatory. Morbidly obese. She is bedbound. Past history includes diabetes, chronic pain, chronic stasis edema lower extremities, chronic Jose, anemia, heart failure, CHF, hypertension, severe osteoporosis, she is on chronic oxygen by nasal cannula, and history of atrial fibrillation. Review of systems negative except as noted above. Her HPI from both [facility] and [facility] have been reviewed. Review Family/Social History and ROS: Review Family/Social History and ROS: CAD: yes Alcohol Use: denies Drug Use: denies Social History: Smoking Status: never smoker (1) Alcohol Use: denies(1) Drug Use: denies (1) Drug 2 Use: denies (1) Allergies: No Known Allergies: Objective: Objective Information: T PRBPSpO2 Value36.78685817/6492% Date/Time02/07 6: 6: 6: 6: 6:51 Range(36.4C - 37.8C ) (55 - 79 ) (20 - 20 ) (139 - 145 )/ (64 - 67 ) (92% - 93% ) Highest temp of 37.8 C was recorded at 02/06 21:00 Pain reported at 02/07 0:20: 6 = Moderate Medications: Medications: Continuous Medications ------ No continuous medications are active Scheduled Medications ------ 1. Acetaminophen: 975 mg Oral Every 8 Hours 2. Ascorbic Acid: 500 mg Oral Daily 3. Aspirin Enteric Coated: 81 mg Oral Daily 4. Atorvastatin: 20 mg Oral Daily 5. Baclofen: 20 mg Oral 3 Times a Day 6. Bumetanide: 0.5 mg Oral 2 Times a Day 7. Docusate 50 mg - Senna 8.6 m tablet(s) Oral 2 Times a Day 8. Donepezil: 5 mg Oral At Bedtime 9. Enoxaparin SubCutaneous: 60 mg SubCutaneous Every 12 Hours 10. Gabapentin: 300 mg Oral 2 Times a Day 11. Hydrocortisone 0.5% Topical: 1 application(s) Topical 2 Times a Day 12. Insulin Glargine (Lantus) Injectable: 55 unit(s) SubCutaneous Daily Before First Meal 13. Insulin Glargine (Lantus) Injectable: 35 unit(s) SubCutaneous At Bedtime 14. Insulin Lispro Moderate Corrective Scale: unit(s) SubCutaneous 4 Times a Day Insulin Timing 15. Lactobacillus: 1 each Oral Daily 16. Lidocaine 5% TransDermal: 1 patch TransDermal Every 24 Hours 17. Magnesium Oxide: 400 mg Oral Daily 18. oxyCODONE Extended Release: 10 mg Oral Every 12 Hours 19. Piperacillin - Tazobactam 3.375 gram/Iso-osmotic 50 mL Premix IVPB: 50 mL IntraVenous Piggyback Every 6 Hours 20. Vancomycin - DISCONTINUED - [facility] to Dose: 1 each As Specified Variable PRN Medications ------ 1. Dextrose 50% in Water Injectable: 25 gram(s) IntraVenous Push Every 15 Minutes 2. Glucagon Injectable: 1 mg IntraMuscular Every 15 Minutes 3. Ondansetron Injectable: 4 mg IntraVenous Push Every 6 Hours 4. Sodium Chloride 0.9% Injectable Flush: 10 mL IntraVenous Flush Every 8 Hours and as Needed Currently Suspended Medications ------ 1. Apixaban: 5 mg Oral Every 12 Hours Recent Lab Results: Results: I have reviewed these laboratory results: Basic Metabolic Panel Trending View [id number] 08:31:00 06-Feb-2021 05:07:00 Glucose, Drpyo061 H 189 H NA143 142 K4.2 3.9 CL107 107 Bicarbonate, Serum28 30 Anion Gap, Serum12 9 L BUN17 18 CREAT0.80 0.70 GFR-Non >60 >60 GFR->60 >60 Calcium, Serum8.1 L 7.9 L Complete Blood Count Trending View [id number] 08:31:00 06-Feb-2021 05:07:00 White Blood Cell Count5.4 4.6 Nucleated Erythrocyte Count0.0 Red Blood Cell Count3.39 L 3.23 L HGB10.2 L 9.6 L HCT35.1 L 30.5 L AVL961 H 95 MCHC29.1 L 31.3 L GTA071 247 RDW-CV15.3 H 16.0 H Sedimentation Rate, Erythrocyte Trending View [id number] 08:31:00 02-Feb-2021 18:46:00 Sedimentation Rate, [id number] H 79 H C Reactive Protein, Serum Trending View [id number] 08:31:00 02-Feb-2021 18:45:00 C Reactive Protein, Serum5.35 A 16.35 A Glucose_POCT Trending View [id number] 07:21:00 06-Feb-2021 19:49:00 06-Feb-2021 16:29:00 Glucose-EPKF885 H 272 H 269 H Culture, Blood 02-Feb-2021 18:45:00 ResultValue Culture, Blood No Growth at 1 daysNo Growth at (more content not included)... Normal [facility] Consult-Podiatry This report has been cancelled. Normal [facility] Consult-Vascular Surgeryon 1 04-09-2020 Consult-Vascular Surgery Service: Service: Vascular Surgery Consult: Consult requested by (Attending Name): Bashir Lemon Reason: right foot osteomyelitis History of Present Illness: HPI: SALAZAR COYLE is a 70 year old Female transferred from [facility] for right foot osteomyelitis. She also has lymphedema with chronic venous stasis skin changes of bilateral legs, right hip and knee osteoporosis, morbidly obese, bedridden, and chronic hypoxemic respiratory failure. She had bedside debridement by podiatry at [facility]. She has refused multiple imaging studies. She was unable to tolerate MONICA/PVR study at [facility] due to pain. She has been transferred to [facility] for further management. PMH: Morbid obesity HFpEF Anemia T2DM HTN Lymphedema Venous stasis dermatitis Chronic jose Bedridden A-fib Review Family/Social History and ROS: Review Family/Social History and ROS: CAD: yes Alcohol Use: denies Drug Use: denies No ROS has been documented on this patient. Social History: Smoking Status: never smoker (1) Alcohol Use: denies(1) Drug Use: denies (1) Drug 2 Use: denies (1) Allergies: No Known Allergies: Objective: Objective Information: T PRBPSpO2 Value37.75561513/6792% Date/Time02/07 13: 13: 13: 13: 13:16 Range(36.4C - 37.5C ) (68 - 79 ) (20 - 20 ) (142 - 147 )/ (64 - 67 ) (92% - 92% ) Highest temp of 37.5 C was recorded at 02/07 13:16 Physical Exam by System: Constitutional: Morbidly obese, awake/alert/oriented x3, no distress, alert and cooperative Eyes: PERRL, EOMI, clear sclera Head/Neck: Neck supple, no apparent injury, No JVD, trachea midline, no bruits Respiratory/Thorax: Patent airways, CTAB Cardiovascular: Regular, rate and rhythm, S 1and S 2 heard Extremities: Pedal pulses difficult to palpate secondary to edema Doppler signals triphasic Neurological: Right foot drop Lymphatic: No significant lymphadenopathy Psychological: Appropriate mood and behavior Skin: Venous stasis skin changes of bilateral legs Open ulcer at base of 3rd - 5th metatarsal partially covered with necrotic eschar Stage 1 ulcer of right heel Medications: Medications: Continuous Medications ------ No continuous medications are active Scheduled Medications ------ 1. Acetaminophen: 975 mg Oral Every 8 Hours 2. Ascorbic Acid: 500 mg Oral Daily 3. Aspirin Enteric Coated: 81 mg Oral Daily 4. Atorvastatin: 20 mg Oral Daily 5. Baclofen: 20 mg Oral 3 Times a Day 6. Bumetanide: 0.5 mg Oral 2 Times a Day 7. Docusate 50 mg - Senna 8.6 m tablet(s) Oral 2 Times a Day 8. Donepezil: 5 mg Oral At Bedtime 9. Enoxaparin SubCutaneous: 60 mg SubCutaneous Every 12 Hours 10. Gabapentin: 300 mg Oral 2 Times a Day 11. Hydrocortisone 0.5% Topical: 1 application(s) Topical 2 Times a Day 12. Insulin Glargine (Lantus) Injectable: 55 unit(s) SubCutaneous Daily Before First Meal 13. Insulin Glargine (Lantus) Injectable: 35 unit(s) SubCutaneous At Bedtime 14. Insulin Lispro (HumaLOG) Injectable: 3 unit(s) SubCutaneous 3 Times a Day Before Meals 15. Insulin Lispro Moderate Corrective Scale: unit(s) SubCutaneous 4 Times a Day Insulin Timing 16. Lactobacillus: 1 each Oral Daily 17. Lidocaine 5% TransDermal: 1 patch TransDermal Every 24 Hours 18. Magnesium Oxide: 400 mg Oral Daily 19. oxyCODONE Extended Release: 10 mg Oral Every 12 Hours 20. Piperacillin - Tazobactam 3.375 gram/Iso-osmotic 50 mL Premix IVPB: 50 mL IntraVenous Piggyback Every 6 Hours 21. silver sulfADIAZINE 1% Topical: 1 application(s) Topical Daily 22. Technetium Tc 99m Tetrofosmin (MYOVIEW - Radiology Contrast): 30 milliCurie IntraVenous Push Once 23. Technetium Tc 99m Tetrofosmin (MYOVIEW - Radiology Contrast): 10 milliCurie IntraVenous Push Once PRN Medications ------ 1. Dextrose 50% in Water Injectable: 25 gram(s) IntraVenous Push Every 15 Minutes 2. Glucagon Injectable: 1 mg IntraMuscular Every 15 Minutes 3. Ondansetron Injectable: 4 mg IntraVenous Push Every 6 Hours 4. Sodium Chloride 0.9% Injectable Flush: 10 mL IntraVenous Flush Every 8 Hours and as Needed Currently Suspended Medications ------ 1. Apixaban: 5 mg Oral Every 12 Hours Recent Lab Results: Results: I have reviewed these laboratory results: Glucose_POCT Trending View [id number] 16:25:00 07-Feb-2021 11:21:00 07-Feb-2021 07:21:00 Glucose-VRPE812 H 259 H 183 H Basic Metabolic Panel 07-Feb-2021 08:31:00 ResultValue Glucose, Serum 209 H NA 143 K 4.2 CL 107 Bicarbonate, Serum 28 Anion Gap, Serum 12 BUN 17 CREAT 0.80 GFR-Non >60 GFR- >60 Calcium, Serum 8.1 L Complete Blood Count 07-Feb-2021 08:31:00 ResultValue White Blood Cell Count 5.4 Nucleated Erythrocyte (more content not included)... Normal [facility] Daily Progress Note-Medicine on 02-07-2021 Daily Progress Note-Medicine Service: Medicine Subjective Data: SALAZAR COYLE is a 70 year old Female who is Hospital Day # 2. Pt c/o chronic itching and redness of her left arm. She denies SOB and pain. She asks that I not lift her right leg 2/2 chronic extreme pain with lifting. She says if it must be lifted for eval by the consults, that she be rolled over. Objective Data: Objective Information: T PRBPSpO2 Value36.45095206/6492% Date/Time02/07 6: 6: 6: 6: 6:51 Range(36.4C - 37.8C ) (55 - 79 ) (19 - 20 ) (139 - 145 )/ (62 - 67 ) (92% - 93% ) Highest temp of 37.8 C was recorded at 02/06 21:00 Pain reported at 02/07 0:20: 6 = Moderate Physical Exam by System: Constitutional: Well developed, awake/alert/oriented x3, no distress, cooperative Eyes: EOMI, clear sclera ENMT: mucous membranes moist, no apparent injury, no lesions seen Head/Neck: Neck supple, no apparent injury, trachea midline Respiratory/Thorax: Patent airways, CTAB, normal breath sounds with good chest expansion, thorax symmetric Cardiovascular: Regular rate and rhythm, no murmurs, normal S 1and S 2 Gastrointestinal: Nondistended, soft, non-tender, morbidly obese, +BS, no bruits Genitourinary: Jose draining clear yellow urine Musculoskeletal: ROM intact, no joint swelling, weakened strength, pt bedbound Extremities: normal extremities, no cyanosis, contusions or wounds, no clubbing, +BLE lymphedema Neurological: no focal deficit, pt bedbound, intact senses, motor, response and reflexes, normal strength Psychological: Appropriate mood and behavior Skin: Mild erythema over upper arms; BLE lymphedema with rough scaly appearance, fresh and dried serous draining sores, erythema, dried/scaly white cream noted on RLE, boot placed on right foot; petechial rash over left forearm, worst over inside wrist Medication: Medications: Continuous Medications ------ No continuous medications are active Scheduled Medications ------ 1. Acetaminophen: 975 mg Oral Every 8 Hours 2. Ascorbic Acid: 500 mg Oral Daily 3. Aspirin Enteric Coated: 81 mg Oral Daily 4. Atorvastatin: 20 mg Oral Daily 5. Baclofen: 20 mg Oral 3 Times a Day 6. Bumetanide: 0.5 mg Oral 2 Times a Day 7. Docusate 50 mg - Senna 8.6 m tablet(s) Oral 2 Times a Day 8. Donepezil: 5 mg Oral At Bedtime 9. Enoxaparin SubCutaneous: 60 mg SubCutaneous Every 12 Hours 10. Gabapentin: 300 mg Oral 2 Times a Day 11. Insulin Glargine (Lantus) Injectable: 55 unit(s) SubCutaneous Daily Before First Meal 12. Insulin Glargine (Lantus) Injectable: 35 unit(s) SubCutaneous At Bedtime 13. Insulin Lispro Moderate Corrective Scale: unit(s) SubCutaneous 4 Times a Day Insulin Timing 14. Lactobacillus: 1 each Oral Daily 15. Lidocaine 5% TransDermal: 1 patch TransDermal Every 24 Hours 16. Magnesium Oxide: 400 mg Oral Daily 17. oxyCODONE Extended Release: 10 mg Oral Every 12 Hours 18. Piperacillin - Tazobactam 3.375 gram/Iso-osmotic 50 mL Premix IVPB: 50 mL IntraVenous Piggyback Every 6 Hours 19. Vancomycin - RPh to Dose - IV Piggy Back: 1 each As Specified Variable 20. Vancomycin 1 gram IVPB/ Premixed Soln 200 mL: 1 gram(s) IntraVenous Piggyback Every 12 Hours PRN Medications ------ 1. Dextrose 50% in Water Injectable: 25 gram(s) IntraVenous Push Every 15 Minutes 2. Glucagon Injectable: 1 mg IntraMuscular Every 15 Minutes 3. Ondansetron Injectable: 4 mg IntraVenous Push Every 6 Hours 4. Sodium Chloride 0.9% Injectable Flush: 10 mL IntraVenous Flush Every 8 Hours and as Needed Currently Suspended Medications ------ 1. Apixaban: 5 mg Oral Every 12 Hours Recent Lab Results: Results: CBC: 02/07/2021 08:31 \\ Hgb / \\ 10.2 L / WBC Plt 5.4 242 / Hct \\ / 35.1 L \\ RBC: 3.39 L MCV: 104 H Assessment and Plan: Medical History: Anemia: Entered Date: 06-Feb-2021 12:46 Paroxysmal atrial fibrillation: Onset Date: 06-Feb-2021, Entered Date: 06-Feb-2021 12:44 Chronic pain: Entered Date: 06-Feb-2021 12:44 Chronic respiratory failure with hypoxia, on home oxygen therapy: Entered Date: 06-Feb-2021 12:43 Osteoporosis: Entered Date: 06-Feb-2021 12:43 Diabetes mellitus: Entered Date: 06-Feb-2021 12:43 Venous stasis: Entered Date: 06-Feb-2021 12:43 Lymphedema: Entered Date: 06-Feb-2021 12:43 HTN (hypertension): Entered Date: 06-Feb-2021 12:42 Heart failure with preserved ejection fraction: Entered Date: 06-Feb-2021 12:42 Bedbound: Entered Date: 06-Feb-2021 12:42 Obesity: Entered Date: 06-Feb-2021 12:42 Comorbidities: Comorbidityobesity Obesitymorbid obesity (BMI 40+) Code Status: Code StatusFull Code Assessment: # Right leg osteomyelitis, BLE cellulitis, stage II pressure ulcer on right heel - pt was admitted 02/02 - 02/06/21 to [facility] (more content not included)... Normal [facility] GLUCOSE-POCTon 02-07-2021 Glucose [Mass/Vol] 288 mg/dL High 74 - 99 [facility] Comment on above: Performed By: #### B MP #### [facility] [address] [place] [address] Glucose [Mass/Vol] 295 mg/dL High 74 - 99 [facility] Comment on above: Result Comment: RN/L PN NOTIFIED Performed By: #### B MP #### [facility] [address] [place] [address] Glucose [Mass/Vol] 259 mg/dL High 74 - 99 [facility] Comment on above: Performed By: #### B MP #### [facility] [address] [place] [address] Glucose [Mass/Vol] 183 mg/dL High 74 - 99 [facility] Comment on above: Performed By: #### B MP #### [facility] [address] [place] [address] SEDIMENTATION RATE, ERYTHROC YTEon 02-07-2021 SEDIMENTATION RATE, ERYTHROCYTE 68 mm/h High 0 - 30 [facility] Comment on above: Performed By: #### B MP #### [facility] [address] [place] [address] Admission Risk Screen - Adul ton 02-06-2021 Admission Risk Screen - Adult Allergies: Allergies: No Known Allergies: Patient Verification: New W ID Band Applied in my Departmentyes Patient Identity Verified Bypatient ID Band FULL Name, include Middle, spelling matches patient's ID used for verificationyes ID Band Matches Patient ID used for Verficationyes ID Band MRN Matches EMR MRNyes Visitor Restriction: Coronavirus Visitor Restriction: Reasonable restrictions to in-person visitors will be observed due to current coronavirus pandemic. Travel History: COVID-19 Screening Completedcongregate living Travel or Exposure Past 30 DaysNO travel to International locations in the past 30 days Ebola AlertFor Ebola-like Symptoms: Isolate Patient and Notify Provider/Trial Judge For Contact: Notify Provider/Trial Judge Advance Directive: Advance Directive/DNRno Advance Directive Information Givenpatient/family declined Luna Fall Screen: History of falling (immediate or previous)no (0) Secondary Diagnosisyes (15) Intravenous Therapy/ Heparin/Saline Lockyes (20) Gait/Transferringimpaired (20) Ambulatory Aidsfurniture (30) Mental Statusoverestimates/forget s limitations (15) Score: Low risk (<25). Moderate risk (25-44). High risk (>44).100 Luna InterventionsHIGH INTERVENTIONS *Low and Moderate Interventions Plus: * supervised toileting at all times Family Violence Screen: Are you or have you been threatened or abused physically, emotionally, or sexually by anyoneno Has anyone ever threatened to hurt your family or your petsno Does anyone try to keep you from having/contacting other friends or doing things outside your homeno Do you feel UNSAFE going back to the place where you are livingno Do you feel anyone has exploited or taken advantage of you financially or of your personal propertyno Clinical assessment: Are there any apparent signs of injuries/behaviors that could be related to abuse/neglectno Social Service Consult for abuse/neglect needed this visitno Functional Screen: Functional Screen: In the recent/past 2-4 weeks, patient or family have noticedno issues that require a speech/language consult at this time AM-PAC- Basic Mobility/Daily Activity: Patient baseline bedboundyes Turning from your back to your side while in a flat bed without using bedrailstotal Moving from lying on your back to sitting on the side of a flat bed without using bedrailstotal Moving to and from bed to chair (including a wheelchair)total Standing up from a chair using your arms (e.g. wheelchair or bedside chair) total To walk in hospital roomtotal Climbing 3-5 steps with railingtotal Basic Mobility - Total Score6 Putting on and taking off regular lower body clothingtotal Bathing (including washing, rinsing, drying)total Putting on and taking off regular upper body clothingtotal Toileting, which includes using toilet, bedpan or urinaltotal Taking care of personal grooming such as brushing teethtotal Eating Mealstotal Daily Activity - Total Score6 Learning Assessment (Patient): Patient is Able to be Assessed for Learningyes Factors Influencing Readiness to Learninterest in learning Factors that Impact Ability to Learnnone Devices/Methods Used to Communicatenone Learning Preferencesverbal instruction Cultural Considerationsnone Developmental Considerationsnone Gnosticism Considerationsnone Learning Assessment (Other Learner): Other learner availableno Depression Screen: During the past month, have you often been bothered by feeling down, depressed or hopelessno During the past month, have you often had little interest or pleasure in doing thingsno Have you had any thoughts of harming anyone elseunable to assess [place] Suicide: Risk Screen Not Applicable/Able to Answerable to be screened In the Past Month: Have you wished you were or could go to sleep and not wake upno In the Past Month: Have you had any actual thoughts of killing yourselfno Lifetime: Have you ever done, started to do, or prepared to do anything to end your lifeno [place] Suicide Risknegative Adult Nutrition Screen: Have you recently lost weight without tryingno Have you been eating poorly because of a decreased appetiteno Malnutrition Screening Tool Score0 Malnutrition Screening Tool RiskMST = 0 or 1 Not at risk. Eating well with little or no weight loss Nutrition Consult needed this visitno Can Patient Participate in Room Serviceyes Patient requires Paper Dishes/Plastic Utensilsno Pain Screen: Pain Scalenumerical 0-10 Pain Scale Educationteaching provided Current Pain Level3 = Mild Acceptable Pain Level4 = Moderate Expression of Pain (nonverbal)none Lifestyle Changes/Adaptations in Response to Painno change Barriers to Reporting Painnone Chronic Painno Spiritual Screen: Are there any cultural, spiritual, taoism practices/values/needs that are important fo (more content not included)... Normal [facility] BASIC METABOLIC PANELon 11-0 Anion gap [Moles/Vol] 9 mmol/L Low 10 - 20 [facility] Comment on above: Performed By: #### B MP #### [id number] [place] [address] Calcium [Mass/Vol] 7.9 mg/dL Low 8.6 - 10.3 [facility] Comment on above: Performed By: #### B MP #### [address] [address] Chloride [Moles/Vol] 107 mmol/L Normal 98 - 107 [facility] Comment on above: Performed By: #### B MP #### [address] [address] Creatinine [Mass/Vol] 0.70 mg/dL Normal 0.50 - 1.05 [facility] Comment on above: Performed By: #### B MP #### [address] [address] GFR- AM. >60 Normal >60 [facility] Comment on above: Result Comment: CALC ULATIONS OF ESTIMATED GFR ARE PERFORMED USING THE MDRD STUDY EQUATION FOR THE IDMS-TRACEABLE CREATININE METHODS. CLIN CHEM 2007;53:766-72 Performed By: #### B MP #### [place] [id number] GFR-NON AM. >60 Normal >60 [facility] Comment on above: Performed By: #### B MP #### [address] [address] Glucose [Mass/Vol] 189 mg/dL High 74 - 99 [facility] Comment on above: Performed By: #### B MP #### [address] [address] HCO3 (Bld) [Moles/Vol] 30 mmol/L Normal 21 - 32 [facility] Comment on above: Performed By: #### B MP #### [address] [address] Potassium [Moles/Vol] 3.9 mmol/L Normal 3.5 - 5.3 [facility] Comment on above: Performed By: #### B MP #### [address] [address] Sodium [Moles/Vol] 142 mmol/L Normal 136 - 145 [facility] Comment on above: Performed By: #### B MP #### [address] [place] [address] Urea nitrogen [Mass/Vol] 18 mg/dL Normal 6 - 23 [facility] Comment on above: Performed By: #### B MP #### [address] [address] CBCon 02-06-2021 Erythrocyte distribution width (RBC) [Ratio] 16.0 % High 11.5 - 14.5 [facility] Comment on above: Performed By: #### B MP #### [address] [address] Hematocrit (Bld) [Volume fraction] 30.5 % Low 36.0 - 46.0 [facility] Comment on above: Performed By: #### B MP #### [address] [address] Hemoglobin (Bld) [Mass/Vol] 9.6 g/dL Low 12.0 - 16.0 [facility] Comment on above: Performed By: #### B MP #### [address] [address] MCHC (RBC) [Mass/Vol] 31.3 g/dL Low 32.0 - 36.0 [facility] Comment on above: Performed By: #### B MP #### [address] [address] MCV (RBC) [Entitic vol] 95 fL Normal 80 - 100 [facility] Comment on above: Performed By: #### B MP #### [address] [address] Platelets (Bld) [#/Vol] 247 10*3/uL Normal 150 - 450 [facility] Comment on above: Performed By: #### B MP #### [address] [address] RBC 3.23 x10E12/L Low 4.00 - 5.20 [facility] Comment on above: Performed By: #### B MP #### [address] [address] WBC (Bld) [#/Vol] 4.6 10*3/uL Normal 4.4 - 11.3 [facility] Comment on above: Performed By: #### B #### [facility] [address] [place] [address] Clinical Event Note-Vancomyc inon 02-06-2021 Clinical Event Note-Vancomycin Clinical Event: Clinical Event Note: TopicVancomycin Details Random level ~ 14 hr resulted 19.2. At goal Concern for accumulation and therefore will decrease dose to Vanco 1g q12. Level prior to next 4th dose due: 02/08 @ 0500 70 yof with Osteo. Goal 15-20. Wt: 193.7kg SCr 0.70 Pt was on Vanco 1.25g q12 @ [facility]. Last level was yesterday and resulted 23.2. Last dose given was today @ 0100. Will order a random level now and see how well pt is clearing drug. Electronic Signatures: Italia Stevens (PH) (Signed 06-Feb-2021 16:41) Authored: Clinical Event Note Last Updated: 06-Feb-2021 16:41 by Italia Stevens () Normal [facility] Daily Progress Note-General Internal Medicineon 02-06-2021 Daily Progress Note-General Internal Medicine Consult Type: subsequent visit/care Service: General Internal Medicine Subjective Data: SALAZAR COYLE is a 70 year old Female who is Hospital Day # 5. Overnight Events: Patient had an uneventful night. Objective Data: Objective Information: T PRBPSpO2 [id number]/[id number]% Date/Time02/06 0:00104/08 0:00104/08 0:00104/08 0:00104/08 0:00 Range(36.5C - 37C ) (69 - 88 ) (16 - 18 ) (103 - 144 )/ (60 - 76 ) (91% - 94% ) Highest temp of 37 C was recorded at 02/05 14:53 Pain reported at 02/05 20:00: 0 = None Physical Exam by System: Constitutional: awake/alert/oriented x3, not in acute distress, significantly obese Eyes: PERRL, EOMI, clear sclera ENMT: normal hearing, mucous membranes moist, no pharyngeal erythema or exudates Head/Neck: neck supple, no apparent injury, no JVD, no lymphadenopathy, trachea midline Respiratory/Thorax: patent airways, clear to auscultation bilaterally, no crackles or wheezing or rhonchi Cardiovascular: Regular, rate and rhythm, no murmurs, 2+ equal pulses of the extremities Gastrointestinal: Significantly distended from the obesity, positive bowel sounds, soft, non-tender, no rebound tenderness or guarding, no masses palpable, no organomegaly Extremities: wrapped after procedure with Dr. Martinez. I personally observed the right foot during podiatry exam and biopsy. black, drainage and foul smell noted, curretly wrapped, patient screams out don't touch when you go near her foot, refuses daily inspections Neurological: intact senses, motor, (patient refuses to have right foot touched, withdraws to pain) Psychological: Appropriate mood and behavior Skin: warm dry Medication: Medications: Continuous Medications ------ No continuous medications are active Scheduled Medications ------ 1. Acetaminophen: 975 mg Oral Every 8 Hours 2. Aspirin Enteric Coated: 81 mg Oral Daily 3. Atorvastatin: 20 mg Oral Daily 4. Baclofen: 20 mg Oral 3 Times a Day 5. Bumetanide: 0.5 mg Oral 2 Times a Day 6. Docusate 50 mg - Senna 8.6 m tablet(s) Oral 2 Times a Day 7. Donepezil: 5 mg Oral At Bedtime 8. Gabapentin: 300 mg Oral 2 Times a Day 9. Insulin Glargine (Lantus) Injectable: 55 unit(s) SubCutaneous Daily Before First Meal 10. Insulin Glargine (Lantus) Injectable: 35 unit(s) SubCutaneous Daily Before Third Meal 11. Insulin Lispro (HUMALOG) Carb/ISF Calculator: 1 dose(s) SubCutaneous Before Meals & Bedtime 12. Lactobacillus: 1 each Oral 3 Times a Day 13. Menthol 0.44% - Zinc Oxide 20.625% Topical: 1 application(s) Topical 3 Times a Day 14. oxyCODONE Extended Release: 10 mg Oral Every 12 Hours 15. Piperacillin - Tazobactam 3.375 gram/Iso-osmotic 50 mL Premix IVPB: 50 mL IntraVenous Piggyback Every 6 Hours 16. Vancomycin - RPh to Dose - IV Piggy Back: 1 each As Specified Variable 17. Vancomycin IV Piggy Back: 1250 mg IntraVenous Piggyback Every 12 Hours PRN Medications ------ 1. Acetaminophen: 650 mg Oral Every 4 Hours 2. Magnesium Hydroxide Oral Liquid CONCENTRATE: 10 mL Oral Every 24 Hours 3. Ondansetron Injectable: 4 mg IntraVenous Push Every 4 Hours 4. oxyCODONE Immediate Release: 5 mg Oral Every 4 Hours 5. traMADol: 50 mg Oral Every 6 Hours Recent Lab Results: Results: I have reviewed these laboratory results: Complete Blood Count 06-Feb-2021 05:07:00 ResultValue White Blood Cell Count 4.6 Red Blood Cell Count 3.23 L HGB 9.6 L HCT 30.5 L MCV 95 MCHC 31.3 L PLT 247 RDW-CV 16.0 H Basic Metabolic Panel 06-Feb-2021 05:07:00 ResultValue Glucose, Serum 189 H NA 142 K 3.9 CL 107 Bicarbonate, Serum 30 Anion Gap, Serum 9 L BUN 18 CREAT 0.70 GFR-Non >60 GFR- >60 Calcium, Serum 7.9 L Magnesium, Serum 06-Feb-2021 05:07:00 ResultValue Magnesium, Serum 2.15 Radiology Results: Results: Impression: 1. Diffuse osteopenia. No obvious periosteal reaction is identified. If there is persistent clinical concern for osteomyelitis, MRI can be obtained for further evaluation. 2. Marked diffuse soft tissue swelling at the visualized right foot and right lower leg with interval increase in the overlying skin thickening. Air trapping in between the skin creases is limiting evaluation for soft tissue emphysema. Areas of lucency at the soft tissues along the dorsal aspect of the toes and lateral to the 5th metatarsal, please correlate with clinical exam to evaluate for ulcers. Xray Foot Complete Min 3 View [Feb 02 2021 7:48PM] Impression: 1. No radiographic evidence of acute cardiopulmonary process. Xray Chest 1 View [Feb 02 2021 7:35PM] Impression: Xray Foot Complete Min 3 View [Feb 02 2021 7:21PM] Assessment and Plan: Comorbidities: Comorbidityobesity Obesitymorbid obesity (BMI 40+) Code Status: (more content not included)... Normal [facility] Discharge Planning Suis3wm 1 04-08-2020 Discharge Planning Note2 Discharge Planning: Discharge Barriersnone Planned Dispositionskilled/rehab/e xtended care [facility] Needed from [facility] [place] of Choice Explainedyes preference Anticipated Discharge [id number] Discharge Planning 02/07/21 1247 PCN: Notified by TCC Keo Price that patient is from [facility] in [place] and is not sure if she wants to return. Provided correction list to patient, spouse and daughter from [facility] directory that includes facilities that are within [facility], as well as meeting patients medical needs, and are in-network for patients insurance; while also in discharge geographic area patient prefers, and identifies each facilities [facility] star rating. Facility preference is [facility] as patient has been their previously. Referral will be submitted for review. TIGRE Francis, Addendum 1722: Patient updated on patients acceptance at [facility]. This is facility of preference. Patient will need precert. [facility] to start precert. TIGRE Francis, 02/07/21 1448 TRANSITIONAL MECHANICAL ENGINEERING TECHNOLOGIST Met with patient at bedside, introduced self and explained role. Patient came from [facility] but does not want to return. Confirmed insurance and RX coverage. Patient requesting list of facilities in [facility]. PCN updated. See note above. Vern Price RN, [facility] 02/08/2021 1500 CARE COORDINATION - Patient is not medically ready for discharge. Patient/family is pending palliative care discussions, no surgical intervention. If patient prefers palliative/hospice approach she would be appropriate for [facility] near home. If not, preference would be for patient to stay in this area to follow up at [facility] at discharge. Preference list provided to patient for [address] Patient's preferences are [facility], [facility], [facility], [facility], [facility] in no order of preference. Patient Plant Superintendent July notified. Chandni Barnett RN (Transitional Sr. Manager Corporate Communications) Doc Halo/[phone] 02/09/21 1341 TRANSITIONAL MECHANICAL ENGINEERING TECHNOLOGIST Per note from [facility], they would be willing to transfer patient to [facility]. Awaiting precert. Patient had PICC line placed for 6 weeks ivab. Vern Price RN, [facility] 02/09/21 1330 PCN: Received response from [facility] they will transport to the [facility] [place] or patient has the option to have Dr Dietrich wound care surgeon & team follow her at the facility. Met with patient and reviewed response from [facility]. Patient wants to go to [facility] and follow with their wound are team. [facility] Keo Price updated. Awaiting precert with [facility]. Dominique TIGRE Carroll, 02/10/21 0952 PCN: [facility] has precert. Dominique TIGRE Carroll, Addendum 1410: Notified patient at bedside 7 daughter by phone of scheduled discharge at 1630 going to [facility]. Dominique TIGRE Carroll, 02/10/21 1448 CNC: Updates and final orders sent to [facility], [address] in [place], picking machine operator helper time for 16:30. Report number [phone]. Ana Tuttle Care Navigation Specialist Assessment: Discharge Planning Assessment [id number] Lives Withspouse(1) Living Arrangementsnursing home(1) Stated Reason for Admissionright leg pain(1) [facility] care (1) Resource/Environmental Concernsnone(1) Anticipated Transition Toinpatient rehabilitation facility(1) Services Anticipated at Transitionnone(1) Discharge Documentation: Discharge/Transfer Date/[id number] 17:05 Discharged Accompanied Bytransport Discharge Modestretcher Transportation Methodtransportation service Belongings Commentwith patient [facility] Electronic Signatures: Nany Price (MENTAL HEALTH COORDINATOR) (Signed 10-Feb-2021 13:53) Authored: Discharge Planning Ying Franks (RN) (Signed 06-Feb-2021 17:01) Authored: Discharge Planning, Assessment Dominique Carroll (PCN) (Signed 10-Feb-2021 14:11) Authored: Discharge Planning Ana Tuttle (COOR) (Signed 10-Feb-2021 14:48) Authored: Discharge Planning Selvin Zavaleta (RN) (Signed 10-Feb-2021 17:06) Authored: Discharge Planning, Discharge Documentation Chandni Barnett (CLIN COOR) (Signed 08-Feb-2021 15:32) Authored: Discharge Planning Last Updated: 10-Feb-2021 17:06 by Selvin Zavaleta (RN) References: 1. Data Referenced From Patient Profile - Adult v2" 06-Feb-2021 16:11 Normal [facility] GLUCOSE-POCTon 02-06-2021 Glucose [Mass/Vol] 272 mg/dL High 74 - 99 [facility] Comment on above: Result Comment: RN/L PN NOTIFIED Performed By: #### G LAYNE ####[facility] [place] [address] Glucose [Mass/Vol] 269 mg/dL High 74 - 99 [facility] Comment on above: Performed By: #### B MP #### [facility] [address] [place] [address] Glucose [Mass/Vol] 262 mg/dL High 74 - 99 [facility] Comment on above: Performed By: #### G LAYNE ####[facility] [place] [address] Glucose [Mass/Vol] 196 mg/dL High 74 - 99 [facility] Comment on above: Performed By: #### G LAYNE #### [address] [address] MAGNESIUMon 02-06-2021 Magnesium [Mass/Vol] 2.15 mg/dL Normal 1.60 - 2.40 [facility] Comment on above: Performed By: #### G LAYNE #### [address] [address] Order Reconciliationon 02-06 Order Reconciliation Page 1 Admission Reconciliation Document Reconciliation Type: Admission requested on behalf of Nelly Saleh (Advanced Practice Nurse) done by Nelly Saleh (METHOD CONSULTANT-[facility]) Admission - Reconciliation: 06-Feb-2021 13:06 by: Nelly Saleh (METHOD CONSULTANT[facility]) Home MedicationsEnteredLast Dose TakenReconciled with current Order Reconciliation Comment/ Additional Information ascorbic acid 500 mg oral tablet 1 tab(s) orally once a [id number] Ascorbic Acid Tablet (VITAMIN C)DOSE = 500 mg Oral Dailyascorbic acid 500 mg oral tablet provisionally auto reconciled with the existing inpatient order Ascorbic Acid aspirin 81 mg oral delayed release tablet 1 tab(s) orally once a day 06-Feb-2021 Aspirin Enteric Coated Enteric Coated Tablet (ECOTRIN)DOSE = 81 mg Oral Dailyaspirin 81 mg oral delayed release tablet provisionally auto reconciled with the existing inpatient order Aspirin Enteric Coated baclofen 10 mg oral tablet 2 tab(s) orally 3 times a [id number] Baclofen Tablet (LIORESAL)DOSE = 20 mg Oral 3 Times a Daybaclofen 10 mg oral tablet provisionally auto reconciled with the existing inpatient order Baclofen Bumex 0.5 mg oral tablet 1 tab(s) orally 2 times a [id number] Bumetanide Tablet (BUMEX)DOSE = 0.5 mg Oral 2 Times a DayBumex 0.5 mg oral tablet provisionally auto reconciled with the existing inpatient order Bumetanide donepezil 5 mg oral tablet 1 tab(s) orally once a day (at bedtime)06-Feb-2021 Donepezil Tablet (ARICEPT)DOSE = 5 mg Oral At Bedtimedonepezil 5 mg oral tablet provisionally auto reconciled with the existing inpatient order Donepezil Eliquis 5 mg oral tablet 1 tab(s) orally 2 times a [id number] Apixaban Tablet (ELIQUIS)DOSE = 5 mg Oral Every 12 HoursEliquis 5 mg oral tablet provisionally auto reconciled with the existing inpatient order Apixaban gabapentin 300 mg oral capsule 1 cap(s) orally 2 times a [id number] Gabapentin Capsule (NEURONTIN)DOSE = 300 mg Oral 2 Times a Daygabapentin 300 mg oral capsule provisionally auto reconciled with the existing inpatient order Gabapentin insulin lispro 100 units/mL subcutaneous solution subcutaneous 3 times a day (before meals)06-Feb-2021 Insulin Lispro Mild Corrective Scale Give SubCutaneous 4 Times a Day Insulin Timing Hypoglycemia Protocol Call LIP unit(s) if Blood Glucose is between 0 - 70 0 unit(s) if Blood Glucose is between 71 - 150 2 unit(s) if Blood Glucose is between 151 - 200 4 unit(s) if Blood Glucose is between 201 - 250 6 unit(s) if Blood Glucose is between 251 - 300 8 unit(s) if Blood Glucose is between 301 - 350 10 unit(s) if Blood Glucose is between 351 - 400 Notify Provider unit(s) if Blood Glucose is greater than 400Notes from Pharmacy: RCRAinsulin lispro 100 units/mL subcutaneous solution provisionally auto reconciled with the existing inpatient order Insulin Lispro Mild Corrective Scale lactobacillus acidophilus oral tablet orally 06-Feb-2021 Lactobacillus Tablet (BACID)DOSE = 1 each Oral Dailylactobacillus acidophilus oral tablet provisionally auto reconciled with the existing inpatient order Lactobacillus Lantus 100 units/mL subcutaneous solution unit(s) subcutaneous 2 times a day. 55 units in AM and 35 units in [id number] Insulin Glargine (Lantus) Injectable DOSE = 55 unit(s) SubCutaneous Daily Before First MealNotes from Pharmacy: HIGH ALERT RCRALantus 100 units/mL subcutaneous solution provisionally auto reconciled with the existing inpatient order Insulin Glargine (Lantus) Injectable lidocaine 4% patch Apply topically to affected area once a day (apply 1 to left thigh and 1 to right hip)06-Feb-2021 Lidocaine 5% TransDermal Film (LIDODERM)DOSE = 1 patch TransDermal Every 24 Hours, Apply to left thigh and right hiplidocaine 4% patch provisionally auto reconciled with the existing inpatient order Lidocaine 5% TransDermal Lipitor 20 mg oral tablet 1 tab(s) orally once a [id number] Atorvastatin Tablet (LIPITOR)DOSE = 20 mg Oral DailyLipitor 20 mg oral tablet provisionally auto reconciled with the existing inpatient order Atorvastatin magnesium oxide 400 mg (241.3 mg elemental magnesium) oral tablet 1 tab(s) orally once a [id number] Magnesium Oxide Tablet (Mag-Ox)DOSE = 400 mg Oral Dailymagnesium oxide 400 mg (241.3 mg elemental magnesium) oral tablet provisionally auto reconciled with the existing inpatient order Magnesium Oxide metFORMIN 1000 mg oral tablet 1 tab(s) orally 2 times a [id number] Reviewed and Held Multi Vitamin+ 1 tab(s) orally once a [id number] Multivitamin with Minerals TabletDOSE = 1 tablet(s) Oral OnceMulti Vitamin+ provisionally auto reconciled with the existing inpatient order Multivitamin with Minerals nitrofurantoin macrocrystals 50 mg oral capsule 1 cap(s) orally once a day (at bedtime)06-Feb-2021 Reviewed and Held oxyCODONE 5 mg oral tablet 1 tab(s) orally every 6 hours, As Needed pain 06-Feb-2021 oxyCODONE Extended Release Tabl (more content not included)... Normal [facility] Order Reconciliation Page 1 Discharge Reconciliation Document Reconciliation Type: Discharge requested on behalf of Seble Garcia (Advanced Practice Nurse) done by Seble Garcia ([facility]) Discharge - Reconciliation: 06-Feb-2021 09:13 by: Seble Garcia (METHOD CONSULTANT-[facility]) Home Medications EnteredHOME MEDICATIONS AT DISCHARGE DateReconciliation Comment/ Additional Information ascorbic acid 500 mg oral tablet 1 tab(s) orally once a day 05-Aug-2019 16:14 ascorbic acid 500 mg oral tablet 1 tab(s) orally once a day 05-Aug-2019 16:14 ascorbic acid 500 mg oral tablet is continued as ascorbic acid 500 mg oral tablet aspirin 81 mg oral delayed release tablet 1 tab(s) orally once a day 14-Aug-2019 17:06 aspirin 81 mg oral delayed release tablet 1 tab(s) orally once a day 14-Aug-2019 17:06 aspirin 81 mg oral delayed release tablet is continued as aspirin 81 mg oral delayed release tablet baclofen 10 mg oral tablet 2 tab(s) orally 3 times a day 14-Aug-2019 17:07 baclofen 10 mg oral tablet 2 tab(s) orally 3 times a day 14-Aug-2019 17:07 baclofen 10 mg oral tablet is continued as baclofen 10 mg oral tablet Bumex 0.5 mg oral tablet 1 tab(s) orally 2 times a day 02-Feb-2021 18:26 Bumex 0.5 mg oral tablet 1 tab(s) orally 2 times a day 02-Feb-2021 18:26 Bumex 0.5 mg oral tablet is continued as Bumex 0.5 mg oral tablet donepezil 5 mg oral tablet 1 tab(s) orally once a day (at bedtime) 17-Mar-2020 11:01 donepezil 5 mg oral tablet 1 tab(s) orally once a day (at bedtime) 17-Mar-2020 11:01 donepezil 5 mg oral tablet is continued as donepezil 5 mg oral tablet Eliquis 5 mg oral tablet 1 tab(s) orally 2 times a day 17-Mar-2020 11:08 Eliquis 5 mg oral tablet 1 tab(s) orally 2 times a day 17-Mar-2020 11:08 Eliquis 5 mg oral tablet is continued as Eliquis 5 mg oral tablet gabapentin 300 mg oral capsule 1 cap(s) orally 2 times a day 14-Aug-2019 17:06 gabapentin 300 mg oral capsule 1 cap(s) orally 2 times a day 14-Aug-2019 17:06 gabapentin 300 mg oral capsule is continued as gabapentin 300 mg oral capsule insulin lispro 100 units/mL subcutaneous solution subcutaneous 3 times a day (before meals) 02-Feb-2021 18:32 insulin lispro 100 units/mL subcutaneous solution subcutaneous 3 times a day (before meals) 02-Feb-2021 18:32 insulin lispro 100 units/mL subcutaneous solution is continued as insulin lispro 100 units/mL subcutaneous solution Lantus 100 units/mL subcutaneous solution unit(s) subcutaneous 2 times a day. 55 units in AM and 35 units in PM 02-Feb-2021 18:33 Lantus 100 units/mL subcutaneous solution unit(s) subcutaneous 2 times a day. 55 units in AM and 35 units in PM 02-Feb-2021 18:33 Lantus 100 units/mL subcutaneous solution is continued as Lantus 100 units/mL subcutaneous solution lidocaine 4% patch Apply topically to affected area once a day (apply 1 to left thigh and 1 to right hip) 17-Mar-2020 11:07 lidocaine 4% patch Apply topically to affected area once a day (apply 1 to left thigh and 1 to right hip) 17-Mar-2020 11:07 lidocaine 4% patch is continued as lidocaine 4% patch Lipitor 20 mg oral tablet 1 tab(s) orally once a day 02-Feb-2021 18:33 Lipitor 20 mg oral tablet 1 tab(s) orally once a day 02-Feb-2021 18:33 Lipitor 20 mg oral tablet is continued as Lipitor 20 mg oral tablet magnesium oxide 400 mg (241.3 mg elemental magnesium) oral tablet 1 tab(s) orally once a day 14-Aug-2019 17:07 magnesium oxide 400 mg (241.3 mg elemental magnesium) oral tablet 1 tab(s) orally once a day 14-Aug-2019 17:07 magnesium oxide 400 mg (241.3 mg elemental magnesium) oral tablet is continued as magnesium oxide 400 mg (241.3 mg elemental magnesium) oral tablet metFORMIN 1000 mg oral tablet 1 tab(s) orally 2 times a day 17-Mar-2020 11:10 metFORMIN 1000 mg oral tablet 1 tab(s) orally 2 times a day 17-Mar-2020 11:10 metFORMIN 1000 mg oral tablet is continued as metFORMIN 1000 mg oral tablet Multi Vitamin+ 1 tab(s) orally once a day 05-Aug-2019 16:22 Multi Vitamin+ 1 tab(s) orally once a day 05-Aug-2019 16:22 Multi Vitamin+ is continued as Multi Vitamin+ nitrofurantoin macrocrystals 50 mg oral capsule 1 cap(s) orally once a day (at bedtime) 02-Feb-2021 18:33 nitrofurantoin macrocrystals 50 mg oral capsule 1 cap(s) orally once a day (at bedtime) 02-Feb-2021 18:33 nitrofurantoin macrocrystals 50 mg oral capsule is continued as nitrofurantoin macrocrystals 50 mg oral capsule oxyCODONE 5 mg oral tablet 1 tab(s) orally every 6 hours, As Needed pain 25-Nov-2020 00:52 oxyCODONE 5 mg oral tablet 1 tab(s) orally every 6 hours, As Needed pain 25-Nov-2020 00:52 oxyCODONE 5 mg oral tablet is continued as oxyCODONE 5 mg oral tablet OxyCONTIN 10 mg oral tablet, extended release 1 tab(s) orally 2 times a day 31-Mar-2020 10:55 OxyCONTIN 10 mg oral tablet, extended release 1 tab(s) orally 2 times a day 31-Mar-2020 10:55 OxyCONTIN 10 mg oral tablet, extended release is continued as OxyCONTIN 10 mg oral tablet, extended release González (more content not included)... Normal [facility] Patient Profile - Adult v2on 02-06-2021 Patient Profile - Adult v2 Profile: Initial Info: How to be AddressedGail(1) Spoken Language PreferredEnglish (1) Source of Informationpatient Stated Reason for Admissionright leg pain Wants Family/Rep Notified of Admissionyes, primary contact Notify PCPnotify PCP Informed of Patient Visiting Rightsyes Limitations on Visitors/Phone Callsnone Temporary Family Living Arrangements (While Hospitalized)none needed [facility] Employment Statusdisabled(1) Current or Previous Servicenone(1) Patient Belongingsremains with patient Patient Belongings Remaining with Patientcell phone/electronics Medications Brought to Hospitalno History of MDROno General Health: Blood Avoidance/Restrictionsnone Previous Transfusion Reactionno Sleep Aids/Routinenone Weight in kg193.7 kilogram(s) Weight in yuv121 pound(s) Weight Methodactual (measured) Scale Typebed Height in cm170.1 centimeter(s) Height in feet5 feet Height in inches7 inch(es) Height Methodstated BMI (kg/m2)66.945 square meter RSP Based Care: Recent Change in Mood/Behaviordenies Major Change/Loss/Stressor/Fears denies How would you like to participate in your carecall dietary with preferences What is the number one concern for you during this hospitalizationpain management What is the most important thing we can do to support you during this hospitalizationdo not sit me up or turn me side to side Is there anything we need to know to best care for you2 chocolate milk with each meal Substance: Smoking Statusnever smoker (2) Alcohol Usedenies(2) Drug Usedenies (2) Drug 2 Usedenies (2) Health Mgmt: Symptoms/Conditions Managed at Homeendocrine; genitourinary; skin Endocrine Symptoms/Conditionsdiabete s Endocrine Managementmanaged Genitourinary Symptoms/Conditionsunable to void/empty Genitourinary Managementmanaged Skin Symptoms/Conditionspressur e injury; wound Number of Pressure Injury on Admission1 Pressure Injury Locationright buttock Pressure Injury StageStage 2 Patient Receiving Wound Careyes Last Wound Care Episode Wasless than 30 days ago Skin Managementnot managed Skin Symptoms/Conditions Commentlymphedema, cellulitis, osteo of right heel Relationship/Environ: Significant Exposurenone(1) Resource/Environmental Concernsnone Primary Source of Support/Comfortsignificant other; child(jonathan) Lives Withspouse Living Arrangementsnursing home Services Anticipated at Transitionnone Anticipated Transition Toinpatient rehabilitation facility Significant IndicatorsComplete Information Review: Allergies, Home Meds and Significant Events have been Reviewed and Verified with Patient/Familyyes ALLERGY, INTOLERANCE, ADVERSE EVENT: Allergies: No Known Allergies: Active Electronic Signatures: Ying Franks (RN) (Signed 06-Feb-2021 16:17) Authored: Initial Info, General Health, RSP Based Care, Substance, Health Mgmt, Relationship/Environ, Additional Information Last Updated: 06-Feb-2021 16:17 by Ying Franks (RN) References: 1. Data Referenced From Patient Profile - Adult v2" 02-Feb-2021 23:35 2. Data Referenced From History and Physical 06-Feb-2021 12:46 Normal [facility] VANCOMYCINon 02-06-2021 VANCOMYCIN 19.2 ug/mL Normal [facility] Comment on above: Result Comment: .The rapeutic Ranges: Peak: All ages: 30.0-40.0 ug/mL . Trough: Age <18y: 5.0-10.0 ug/mL . Age >/= 18y: 5.0-20.0 ug/mL . Vancomycin trough concentrations drawn immediately prior to the next dose at steady-state are preferred for monitoring patients treated with vancomycin. Ref.: Am J Health-Syst Pharm 66: 83-98, 2009. Performed By: #### V ANCU #### [facility] [address] [place] [address] VANCOMYCIN,TROUGHon 02-07-20 21 VANCOMYCIN,TROUGH Canceled Normal [facility] Comment on above: Order Comment: TEST VANCOMYCIN,TROUGH WAS CANCELLED, 02/06/2021 13:12 patient discharged. Performed By: #### B MP #### [facility] [address] [place] [address] BASIC METABOLIC PANELon 11-0 Anion gap [Moles/Vol] 9 mmol/L Low 10 - 20 [facility] Comment on above: Performed By: #### B MP #### [address] [address] Calcium [Mass/Vol] 8.0 mg/dL Low 8.6 - 10.3 [facility] Comment on above: Performed By: #### B MP #### [address] [address] Chloride [Moles/Vol] 106 mmol/L Normal 98 - 107 [facility] Comment on above: Performed By: #### B MP #### [address] [address] Creatinine [Mass/Vol] 0.70 mg/dL Normal 0.50 - 1.05 [facility] Comment on above: Performed By: #### B MP #### [place] [id number] GFR- AM. >60 Normal >60 [facility] Comment on above: Result Comment: CALC ULATIONS OF ESTIMATED GFR ARE PERFORMED USING THE MDRD STUDY EQUATION FOR THE IDMS-TRACEABLE CREATININE METHODS. CLIN CHEM 2007;53:766-72 Performed By: #### B MP #### [address] [address] GFR-NON AM. >60 Normal >60 [facility] Comment on above: Performed By: #### B MP #### [address] [address] Glucose [Mass/Vol] 179 mg/dL High 74 - 99 [facility] Comment on above: Performed By: #### B MP #### [address] [address] HCO3 (Bld) [Moles/Vol] 30 mmol/L Normal 21 - 32 [facility] Comment on above: Performed By: #### B MP #### [address] [address] Potassium [Moles/Vol] 3.7 mmol/L Normal 3.5 - 5.3 [facility] Comment on above: Performed By: #### B MP #### [address] [address] Sodium [Moles/Vol] 141 mmol/L Normal 136 - 145 [facility] Comment on above: Performed By: #### B MP #### [address] [address] Urea nitrogen [Mass/Vol] 17 mg/dL Normal 6 - 23 [facility] Comment on above: Performed By: #### B MP #### [address] [address] CBCon 02-05-2021 Erythrocyte distribution width (RBC) [Ratio] 16.2 % High 11.5 - 14.5 [facility] Comment on above: Performed By: #### B MP #### [address] [address] Hematocrit (Bld) [Volume fraction] 29.8 % Low 36.0 - 46.0 [facility] Comment on above: Performed By: #### B MP #### [address] [address] Hemoglobin (Bld) [Mass/Vol] 9.5 g/dL Low 12.0 - 16.0 [facility] Comment on above: Performed By: #### B MP #### [address] [address] MCHC (RBC) [Mass/Vol] 31.9 g/dL Low 32.0 - 36.0 [facility] Comment on above: Performed By: #### B MP #### [address] [address] MCV (RBC) [Entitic vol] 94 fL Normal 80 - 100 [facility] Comment on above: Performed By: #### B MP #### [address] [address] Platelets (Bld) [#/Vol] 238 10*3/uL Normal 150 - 450 [facility] Comment on above: Performed By: #### B MP #### [address] [address] RBC 3.15 x10E12/L Low 4.00 - 5.20 [facility] Comment on above: Performed By: #### B MP #### [address] [address] WBC (Bld) [#/Vol] 4.9 10*3/uL Normal 4.4 - 11.3 [facility] Comment on above: Performed By: #### B MP #### [address] [address] Daily Progress Note-General Internal Medicineon 02-05-2021 Daily Progress Note-General Internal Medicine Consult Type: subsequent visit/care Service: General Internal Medicine Subjective Data: SALAZAR COYLE is a 70 year old Female who is Hospital Day # 4. Overnight Events: Patient had an uneventful night. Objective Data: Objective Information: T PRBPSpO2 [id number]% Date/Time02/04 22: 22: 22: 22: 22:00 Range(36C - 36.5C ) (69 - 80 ) (19 - 20 ) (100 - 138 )/ (52 - 72 ) (91% - 92% ) Pain reported at 02/04 20:00: 5 = Moderate Physical Exam by System: Constitutional: awake/alert/oriented x3, not in acute distress, significantly obese Eyes: PERRL, EOMI, clear sclera ENMT: normal hearing, mucous membranes moist, no pharyngeal erythema or exudates Head/Neck: neck supple, no apparent injury, no JVD, no lymphadenopathy, trachea midline Respiratory/Thorax: patent airways, clear to auscultation bilaterally, no crackles or wheezing or rhonchi Cardiovascular: Regular, rate and rhythm, no murmurs, 2+ equal pulses of the extremities Gastrointestinal: Significantly distended from the obesity, positive bowel sounds, soft, non-tender, no rebound tenderness or guarding, no masses palpable, no organomegaly Extremities: wrapped after procedure with Dr. Martinez and I yesterday. Did not take dressing off this am, patient refused Neurological: intact senses, motor, patient refuses to have right foot touched Psychological: Appropriate mood and behavior Skin: Pale color Medication: Medications: Continuous Medications ------ No continuous medications are active Scheduled Medications ------ 1. Acetaminophen: 975 mg Oral Every 8 Hours 2. Aspirin Enteric Coated: 81 mg Oral Daily 3. Atorvastatin: 20 mg Oral Daily 4. Baclofen: 20 mg Oral 3 Times a Day 5. Bumetanide: 0.5 mg Oral 2 Times a Day 6. Docusate 50 mg - Senna 8.6 m tablet(s) Oral 2 Times a Day 7. Donepezil: 5 mg Oral At Bedtime 8. Gabapentin: 300 mg Oral 2 Times a Day 9. Insulin Glargine (Lantus) Injectable: 55 unit(s) SubCutaneous Daily Before First Meal 10. Insulin Glargine (Lantus) Injectable: 35 unit(s) SubCutaneous Daily Before Third Meal 11. Insulin Lispro (HUMALOG) Carb/ISF Calculator: 1 dose(s) SubCutaneous Before Meals & Bedtime 12. Lactobacillus: 1 each Oral 3 Times a Day 13. Menthol 0.44% - Zinc Oxide 20.625% Topical: 1 application(s) Topical 3 Times a Day 14. oxyCODONE Extended Release: 10 mg Oral Every 12 Hours 15. Piperacillin - Tazobactam 3.375 gram/Iso-osmotic 50 mL Premix IVPB: 50 mL IntraVenous Piggyback Every 6 Hours 16. Sodium Hypochlorite 0.125% ([place]ak[place] Quarter): 1 application(s) Topical Once 17. Vancomycin - [facility] to Dose - IV Piggy Back: 1 each As Specified Variable 18. Vancomycin IV Piggy Back: 1250 mg IntraVenous Piggyback Every 12 Hours PRN Medications ------ 1. Acetaminophen: 650 mg Oral Every 4 Hours 2. Magnesium Hydroxide Oral Liquid CONCENTRATE: 10 mL Oral Every 24 Hours 3. Ondansetron Injectable: 4 mg IntraVenous Push Every 4 Hours 4. oxyCODONE Immediate Release: 5 mg Oral Every 4 Hours 5. traMADol: 50 mg Oral Every 6 Hours Recent Lab Results: Results: I have reviewed these laboratory results: Complete Blood Count 06-Nov-2021 05:09:00 ResultValue White Blood Cell Count 4.9 Red Blood Cell Count 3.15 L HGB 9.5 L HCT 29.8 L MCV 94 MCHC 31.9 L PLT 238 RDW-CV 16.2 H Basic Metabolic Panel 05-Feb-2021 05:09:00 ResultValue Glucose, Serum 179 H NA 141 K 3.7 CL 106 Bicarbonate, Serum 30 Anion Gap, Serum 9 L BUN 17 CREAT 0.70 GFR-Non >60 GFR- >60 Calcium, Serum 8.0 L Magnesium, Serum 05-Feb-2021 05:09:00 ResultValue Magnesium, Serum 2.03 Radiology Results: Results: Impression: 1. Diffuse osteopenia. No obvious periosteal reaction is identified. If there is persistent clinical concern for osteomyelitis, MRI can be obtained for further evaluation. 2. Marked diffuse soft tissue swelling at the visualized right foot and right lower leg with interval increase in the overlying skin thickening. Air trapping in between the skin creases is limiting evaluation for soft tissue emphysema. Areas of lucency at the soft tissues along the dorsal aspect of the toes and lateral to the 5th metatarsal, please correlate with clinical exam to evaluate for ulcers. Xray Foot Complete Min 3 View [Feb 02 2021 7:48PM] Impression: 1. No radiographic evidence of acute cardiopulmonary process. Xray Chest 1 View [Feb 02 2021 7:35PM] Impression: Xray Foot Complete Min 3 View [Feb 02 2021 7:21PM] Assessment and Plan: Comorbidities: Comorbidityobesity Obesitymorbid obesity (BMI 40+) Code Status: Code StatusFull Code Assessment: 70-year-old morbidly obese female with a past medical history of diastolic congestive (more content not included)... Normal [facility] GLUCOSE-POCTon 02-05-2021 Glucose [Mass/Vol] 243 mg/dL High 74 - 99 [facility] Comment on above: Performed By: #### B MP #### [address] [address] Glucose [Mass/Vol] 240 mg/dL High 74 - 99 [facility] Comment on above: Performed By: #### G LAYNE #### [address] [address] Glucose [Mass/Vol] 224 mg/dL High 74 - 99 [facility] Comment on above: Performed By: #### B MP #### [address] [address] Glucose [Mass/Vol] 153 mg/dL High 74 - 99 [facility] Comment on above: Performed By: #### P HOS #### [address] [address] MAGNESIUMon 02-05-2021 Magnesium [Mass/Vol] 2.03 mg/dL Normal 1.60 - 2.40 [facility] Comment on above: Performed By: #### B MP #### [address] [address] VANCOMYCIN,TROUGHon 02-06-20 21 VANCOMYCIN,TROUGH 23.2 ug/mL Critically high 5.0 - 20.0 [facility] Comment on above: Order Comment: Donna Georges on Med/Surg, 02/05/2021 12:05 Result Comment: Vanc omycin levels should be interpreted in conjunction with the dose, disease being treated, vancomycin JERRY, time of draw (trough concentrations should be obtained just before the next dose at steady-state), and other clinical information. Trough concentrations of 15-20 ug/mL are desired for severe infections. Ref.: Am J Health-Syst Pharm 66: 83-98, 2009. repeated and verified [place] on Med/Surg, 02/05/2021 12:05 Performed By: #### B MP #### [address] [address] BASIC METABOLIC PANELon Anion gap [Moles/Vol] 11 mmol/L Normal 10 - 20 [facility] Comment on above: Performed By: #### B MP #### [address] [address] Calcium [Mass/Vol] 8.3 mg/dL Low 8.6 - 10.3 [facility] Comment on above: Performed By: #### B MP #### [address] [address] Chloride [Moles/Vol] 106 mmol/L Normal 98 - 107 [facility] Comment on above: Performed By: #### B MP #### [address] [address] Creatinine [Mass/Vol] 0.65 mg/dL Normal 0.50 - 1.05 [facility] Comment on above: Performed By: #### B MP #### [address] [address] GFR- AM. >60 Normal >60 [facility] Comment on above: Result Comment: CALC ULATIONS OF ESTIMATED GFR ARE PERFORMED USING THE MDRD STUDY EQUATION FOR THE IDMS-TRACEABLE CREATININE METHODS. CLIN CHEM 2007;53:766-72 Performed By: #### B MP #### [address] [address] GFR-NON AM. >60 Normal >60 [facility] Comment on above: Performed By: #### B MP #### [address] [address] Glucose [Mass/Vol] 160 mg/dL High 74 - 99 [facility] Comment on above: Performed By: #### B MP #### [address] [address] HCO3 (Bld) [Moles/Vol] 30 mmol/L Normal 21 - 32 [facility] Comment on above: Performed By: #### B MP #### [address] [address] Potassium [Moles/Vol] 3.8 mmol/L Normal 3.5 - 5.3 [facility] Comment on above: Performed By: #### B MP #### [address] [address] Sodium [Moles/Vol] 143 mmol/L Normal 136 - 145 [facility] Comment on above: Performed By: #### B MP #### [address] [address] Urea nitrogen [Mass/Vol] 18 mg/dL Normal 6 - 23 [facility] Comment on above: Performed By: #### B MP #### [address] [address] CBCon 02-04-2021 Erythrocyte distribution width (RBC) [Ratio] 16.4 % High 11.5 - 14.5 [facility] Comment on above: Performed By: #### B MP #### [address] [address] Hematocrit (Bld) [Volume fraction] 30.6 % Low 36.0 - 46.0 [facility] Comment on above: Performed By: #### B MP #### [address] [address] Hemoglobin (Bld) [Mass/Vol] 9.8 g/dL Low 12.0 - 16.0 [facility] Comment on above: Performed By: #### B MP #### [address] [address] MCHC (RBC) [Mass/Vol] 32.0 g/dL Normal 32.0 - 36.0 [facility] Comment on above: Performed By: #### B MP #### [address] [address] MCV (RBC) [Entitic vol] 94 fL Normal 80 - 100 [facility] Comment on above: Performed By: #### B MP #### [address] [address] Platelets (Bld) [#/Vol] 232 10*3/uL Normal 150 - 450 [facility] Comment on above: Performed By: #### B MP #### [address] [address] RBC 3.24 x10E12/L Low 4.00 - 5.20 [facility] Comment on above: Performed By: #### B MP #### [address] [address] WBC (Bld) [#/Vol] 4.7 10*3/uL Normal 4.4 - 11.3 [facility] Comment on above: Performed By: #### B MP #### [address] [address] Clinical Event Note-Possibil ity of transferon 02-04-2021 Clinical Event Note-Possibility of transfer Clinical Event: Clinical Event Note: TopicPossibility of transfer DetailsI received a call from podiatry Dr. Martinez and recommended transfer to tertiary care center where there is more services available including vascular. I talked with the daughter who is the POA and she agreed. According to podiatry, the patient may need vascular and either a transmetatarsal amputation or BKA. She has multiple comorbidities including obesity. I contacted the transfer line on the patient and daughter's behalf and talked with Dr. Reshma irwin who accepted the patient however he was concerned that she was documented on today's notice refusing vascular studies at this time but awaiting podiatry recommendations. He accepted the patient as mentioned but it may be several days before she actually gets transferred or gets a bed. We will try and clarify the vascular issue with the patient and the daughter. I did contact the daughter and left a message for her to contact me. Electronic Signatures: Kermit Martínez () (Signed 04-Feb-2021 19:51) Authored: Clinical Event Note Last Updated: 04-Feb-2021 19:51 by Kermit Martínez () [facility] Consult-Podiatryon Consult-Podiatry Service: Service: Podiatry Consult: Consult requested by (Attending Name): Km Parry Reason: right foot wound History of Present Illness: HPI: SALAZAR COYLE is a 70 year old Female with a past medical history including but not limited to diastolic congestive heart failure, diabetes, hypertension, chronic leg lymphedema/chronic venous stasis complicated by leg wounds, right heel ulcer, severe osteoporosis of the right hip and the right knee requiring surgical repair but patient not a candidate because of the underlying comorbidities, chronic hypoxemic respiratory failure on continuous O2, chronic pain followed by palliative care and on chronic opioids, and paroxysmal atrial fibrillation admitted from extended care facility for worsening R foot wound for which podiatry is consulted. Per patient, she is admitted as nurses noted worsening R foot wound over the last several days. She denies fever/ chills. States her dressing is changed at facility but admits it is excruciatingly painful and will not let anyone touch it. Since her admission here she has refused to let anyone change or touch dressing d/t extreme hip/leg pain. She also refused MONIAC/TBI because of pain with pressure of cuffs. Did not attempt arterial duplexes. She is nonambulatory for several years at baseline. Review Family/Social History and ROS: Social History: Smoking Status: never smoker (1) Alcohol Use: denies(1) Drug Use: denies (1) Drug 2 Use: denies (1) Allergies: No Known Allergies: Objective: Objective Information: T PRBPSpO2 [id number]/7292% Date/Time02/04 15: 15: 15: 15: 15:12 Range(36.1C - 36.5C ) (77 - 80 ) (19 - 20 ) (138 - 159 )/ (61 - 74 ) (92% - 92% ) Physical Exam Narrative: Physical Exam: Exam extremely limited due to patient pain despite Ativan and current pain regimen Morbid obesity bilateral lower extremities with gross pitting edema BLE. Bilateral circumferential legs with induration and pitting, with serous lymphedema drainage from poorly defined wounds to bilateral circumferential legs. Localized erythema with mild increased warmth, no lymphangitis. Right foot with unstageable pressure injury to posterior heel. Full thickness ulceration plantar lateral R foot with exposed bone and tendon in base. Wound with significant malodor, wet gangrenous changes with fibrotic slough drainage. On debridement wound extends to 4th and 5th metatarsal bases. Mottling and blue discoloration 5th toe. Discoloration and dry gangrenous changes to distal autumn of digits 3, 4, 5. No open lesions to left foot. Lesions to left leg as described above Does not move extremities Light touch diminished Significant pain limiting exam Medications: Medications: Continuous Medications ------ No continuous medications are active Scheduled Medications ------ 1. Acetaminophen: 975 mg Oral Every 8 Hours 2. Aspirin Enteric Coated: 81 mg Oral Daily 3. Atorvastatin: 20 mg Oral Daily 4. Baclofen: 20 mg Oral 3 Times a Day 5. Bumetanide: 0.5 mg Oral 2 Times a Day 6. Docusate 50 mg - Senna 8.6 m tablet(s) Oral 2 Times a Day 7. Donepezil: 5 mg Oral At Bedtime 8. Gabapentin: 300 mg Oral 2 Times a Day 9. Insulin Glargine (Lantus) Injectable: 55 unit(s) SubCutaneous Daily Before First Meal 10. Insulin Glargine (Lantus) Injectable: 35 unit(s) SubCutaneous Daily Before Third Meal 11. Insulin Lispro (HUMALOG) Carb/ISF Calculator: 1 dose(s) SubCutaneous Before Meals & Bedtime 12. Lactobacillus: 1 each Oral 3 Times a Day 13. Menthol 0.44% - Zinc Oxide 20.625% Topical: 1 application(s) Topical 3 Times a Day 14. oxyCODONE Extended Release: 10 mg Oral Every 12 Hours 15. Piperacillin - Tazobactam 3.375 gram/Iso-osmotic 50 mL Premix IVPB: 50 mL IntraVenous Piggyback Every 6 Hours 16. Vancomycin - RPh to Dose - IV Piggy Back: 1 each As Specified Variable 17. Vancomycin IV Piggy Back: 1250 mg IntraVenous Piggyback Every 12 Hours PRN Medications ------ 1. Acetaminophen: 650 mg Oral Every 4 Hours 2. Magnesium Hydroxide Oral Liquid CONCENTRATE: 10 mL Oral Every 24 Hours 3. Ondansetron Injectable: 4 mg IntraVenous Push Every 4 Hours 4. oxyCODONE Immediate Release: 5 mg Oral Every 4 Hours 5. traMADol: 50 mg Oral Every 6 Hours Recent Lab Results: Results: I have reviewed these laboratory results: Complete Blood Count [Drawn 04-Feb-2021 05:08:00], Complete Blood Count [Drawn 03-Feb-2021 05:06:00], Basic Metabolic Panel [Drawn 04-Feb-2021 05:08:00], Basic Metabolic Panel [Drawn 03-Feb-2021 05:06:00], PT + INR, Plasma [Drawn 04-Feb-2021 05:08:00], Complete Blood Count + Differential [Drawn 02-Feb-2021 18:46:00], Sedimentation Rate, Erythrocyte [Drawn 02-Feb-2021 18:46:00], Comprehensive Metabolic Panel [Drawn - (more content not included)... Normal [facility] Daily Progress Note-General Internal Medicineon 02-04-2021 Daily Progress Note-General Internal Medicine Consult Type: subsequent visit/care Service: General Internal Medicine Subjective Data: SALAZAR COYLE is a 70 year old Female who is Hospital Day # 3. Overnight Events: Patient had an uneventful night. Objective Data: Objective Information: T PRBPSpO2 [id number]/6192% Date/Time02/03 22: 22: 22: 22: 22:00 Range(36.2C - 37.1C ) (68 - 77 ) (18 - 20 ) (126 - 162 )/ (51 - 70 ) (92% - 95% ) Highest temp of 37.1 C was recorded at 02/03 8:46 Pain reported at 02/03 20:00: 8 = Severe Physical Exam by System: Constitutional: awake/alert/oriented x3, not in acute distress, significantly obese Eyes: PERRL, EOMI, clear sclera ENMT: normal hearing, mucous membranes moist, no pharyngeal erythema or exudates Head/Neck: neck supple, no apparent injury, no JVD, no lymphadenopathy, trachea midline Respiratory/Thorax: patent airways, clear to auscultation bilaterally, no crackles or wheezing or rhonchi Cardiovascular: Regular, rate and rhythm, no murmurs, 2+ equal pulses of the extremities Gastrointestinal: Significantly distended from the obesity, positive bowel sounds, soft, non-tender, no rebound tenderness or guarding, no masses palpable, no organomegaly Extremities: Right lower leg and right foot severe erythema with a foul smell and drainage. There is dressing along the right foot that is wet with serous foul drainage. patient refuses to remove bandage or touch foot and scream out if you go near her leg Neurological: intact senses, motor, patient refuses to have right foot touched Psychological: Appropriate mood and behavior Skin: Pale color Medication: Medications: Continuous Medications ------ No continuous medications are active Scheduled Medications ------ 1. Acetaminophen: 975 mg Oral Every 8 Hours 2. Aspirin Enteric Coated: 81 mg Oral Daily 3. Atorvastatin: 20 mg Oral Daily 4. Baclofen: 20 mg Oral 3 Times a Day 5. Bumetanide: 0.5 mg Oral 2 Times a Day 6. Docusate 50 mg - Senna 8.6 m tablet(s) Oral 2 Times a Day 7. Donepezil: 5 mg Oral At Bedtime 8. Gabapentin: 300 mg Oral 2 Times a Day 9. Insulin Glargine (Lantus) Injectable: 55 unit(s) SubCutaneous Daily Before First Meal 10. Insulin Glargine (Lantus) Injectable: 35 unit(s) SubCutaneous Daily Before Third Meal 11. Insulin Lispro (HUMALOG) Carb/ISF Calculator: 1 dose(s) SubCutaneous Before Meals & Bedtime 12. Lactobacillus: 1 each Oral 3 Times a Day 13. Menthol 0.44% - Zinc Oxide 20.625% Topical: 1 application(s) Topical 3 Times a Day 14. oxyCODONE Extended Release: 10 mg Oral Every 12 Hours 15. Piperacillin - Tazobactam 3.375 gram/Iso-osmotic 50 mL Premix IVPB: 50 mL IntraVenous Piggyback Every 6 Hours 16. Vancomycin - RPh to Dose - IV Piggy Back: 1 each As Specified Variable 17. Vancomycin IV Piggy Back: 2 gram(s) IntraVenous Piggyback Every 12 Hours PRN Medications ------ 1. Acetaminophen: 650 mg Oral Every 4 Hours 2. Magnesium Hydroxide Oral Liquid CONCENTRATE: 10 mL Oral Every 24 Hours 3. Ondansetron Injectable: 4 mg IntraVenous Push Every 4 Hours 4. oxyCODONE Immediate Release: 5 mg Oral Every 4 Hours 5. traMADol: 50 mg Oral Every 6 Hours Recent Lab Results: Results: I have reviewed these laboratory results: Complete Blood Count 04-Feb-2021 05:08:00 ResultValue White Blood Cell Count 4.7 Red Blood Cell Count 3.24 L HGB 9.8 L HCT 30.6 L MCV 94 MCHC 32.0 PLT 232 RDW-CV 16.4 H Basic Metabolic Panel 04-Feb-2021 05:08:00 ResultValue Glucose, Serum 160 H NA 143 K 3.8 CL 106 Bicarbonate, Serum 30 Anion Gap, Serum 11 BUN 18 CREAT 0.65 GFR-Non >60 GFR- >60 Calcium, Serum 8.3 L PT + INR, Plasma 04-Feb-2021 05:08:00 ResultValue Prothrombin Time, Plasma 14.0 H International Normalized Ratio, Plasma 1.2 H Magnesium, Serum 04-Feb-2021 05:08:00 ResultValue Magnesium, Serum 2.08 Radiology Results: Results: Impression: 1. Diffuse osteopenia. No obvious periosteal reaction is identified. If there is persistent clinical concern for osteomyelitis, MRI can be obtained for further evaluation. 2. Marked diffuse soft tissue swelling at the visualized right foot and right lower leg with interval increase in the overlying skin thickening. Air trapping in between the skin creases is limiting evaluation for soft tissue emphysema. Areas of lucency at the soft tissues along the dorsal aspect of the toes and lateral to the 5th metatarsal, please correlate with clinical exam to evaluate for ulcers. Xray Foot Complete Min 3 View [Feb 02 2021 7:48PM] Impression: 1. No radiographic evidence of acute cardiopulmonary process. Xray Chest 1 View [Feb 02 2021 7:35PM] Impression: Xray Foot Complete Min 3 View [Feb 02 2021 7 (more content not included)... Normal [facility] GLUCOSE-POCTon 02-04-2021 Glucose [Mass/Vol] 199 mg/dL High 74 - 99 [facility] Comment on above: Performed By: #### B MP #### [address] [address] Glucose [Mass/Vol] 191 mg/dL High 74 - 99 [facility] Comment on above: Performed By: #### B MP #### [address] [address] Glucose [Mass/Vol] 170 mg/dL High 74 - [address] [place] [address] Comment on above: Performed By: #### B MP #### [address] [address] Glucose [Mass/Vol] 170 mg/dL High 74 - 99 [facility] Comment on above: Performed By: #### B MP #### [address] [address] MAGNESIUMon 02-04-2021 Magnesium [Mass/Vol] 2.08 mg/dL Normal 1.60 - 2.40 [facility] Comment on above: Performed By: #### G LAYNE #### [address] [address] MISCELLANEOUS CULT./SM.BACT. on 02-04-2021 MISCELLANEOUS CULT./SM.BACT. PATIENT: SALAZAR COYLE LOCATION: [address]#: [id number] : 46 AGE: SEX: F ORDERED BY: SANDRA MARTINEZ SOURCE: BIOPSY COLLECTED: 02/04/21 18:03 ANTIBIOTICS AT [place].: RECEIVED : 02/04/21 23:05 SITE: foot R E S U L T S GRAM STAIN FINAL 02/05/21 00:22 NO GRANULOCYTES SEEN. 3+ GRAM (-) COCCOBACILLI. MISCELLANEOUS CULT./SM.BACT. FINAL 02/06/21 14:07 4+ AEROBIC MIXED BACTERIA Normal [facility] Comment on above: Performed By: #### B MP #### [place] [id number] Nutrition Therapy-Assessment on 02-04-2021 Nutrition Therapy-Assessment Assessment Subjective/Objective: Note Type: Assessment Note Authored by: Registered Dietitian Digital Photographer Pager Number: Doc Halo Nutrition Note: The patient is a 70 year old Female hospital day #2 admitted for worsening right foot wound from [facility]. Late note entry from 02/03/21. Nutrition assessment completed today for large or non-heaing wound, burn or pressure ulcer. Pt with cellulitis in the right leg as well as an unstageable wound noted on the right heel. Pt resting in bed upon assessment. Pt ordered a Cardiac; Diabetic diet with a 25% oral intake documented this AM. Pt reports that she has a good appetite and oral intakes. Pt provided meal/beverage preferences. Notified the diet office. Increased nutrient needs 2/2 wound healing. Discussed importance of protein intake in wound healing. Encouraged increased intake of milk, peanut butter, meat, etc. with meals as pt states that she like peanut butter, milk and turkey. Noted these preferences. Encouraged general oral intakes of meals and fluids as well. Pt also agreed to trial Pete (90kcal and 2.5g protein each) 2x/day with lunch and dinner (mixed with water) to assist in wound healing. Pt denies any recent weight changes. No recent weight history available for review. Pt with weight of 451.9lb August of 2019. Insignificant weight loss noted. Deferred NFPA. No visual evidence of wasting noted. Will continue to follow the pt. Will monitor oral intakes of meals, supplements and fluids, especially protein foods, and implement additional nutritional supplementation as needed. Medical Surgical History: Past medical history: Morbid obesity, diastolic congestive heart failure, diabetes, hypertension, chronic leg lymphedema/chronic venous stasis complicated by leg wounds, right heel ulcer, severe osteoporosis of the right hip and the right knee requiring surgical repair but patient not a candidate because of the underlying comorbidities, chronic hypoxemic respiratory failure on 2 L nasal cannula oxygen continuous, chronic pain followed by palliative care and on chronic opioids, and paroxysmal atrial fibrillation Objective Information: T PRBPSpO2 [id number]/7492% Date/Time02/04 7: 7: 7: 7: 7:23 Range(36.1C - 36.4C ) (76 - 78 ) (18 - 20 ) (149 - 162 )/ (61 - 74 ) (92% - 95% ) Pain reported at 02/04 9:16: 9 = Severe ---- Intake and Output ----- Mn/Dy/Year TimeIntakeOutputNet Feb 04, 2021 6:00 [id number] The Intake and Output Totals for the last 24 hours are: IntakeOutputNet [id number] Intake Output Urine 1400 mL Height/Weight: Height in cm: 170.1 centimeter(s) Weight (kg): 193.7 BMI (kg/m2): 66.945 square meter Weight history/ % weight change: Pt denies any recent weight changes. No recent weight history available for review. Pt with weight of 451.9lb August of 2019. Insignificant weight loss noted. Recent Lab Results: Results: I have reviewed these laboratory results: Glucose_POCT Trending View [id number] 19:27:00 03-Feb-2021 16:43:00 03-Feb-2021 11:07:00 03-Feb-2021 07:19:00 [id number] H 154 H 226 H 182 H Basic Metabolic Panel 03-Feb-2021 05:06:00 ResultValue Glucose, Serum 172 H NA 142 K 4.0 CL 107 Bicarbonate, Serum 29 Anion Gap, Serum 10 BUN 17 CREAT 0.64 GFR-Non >60 GFR- >60 Calcium, Serum 8.2 L Magnesium, Serum 03-Feb-2021 05:06:00 ResultValue Magnesium, Serum 2.04 Phosphorus, Serum 03-Feb-2021 05:06:00 ResultValue Phosphorus, Serum 4.0 Comprehensive Metabolic Panel 02-Feb-2021 18:45:00 ResultValue Glucose, Serum 209 H NA 141 K 4.0 CL 104 Bicarbonate, Serum 30 Anion Gap, Serum 11 BUN 19 CREAT 0.65 GFR-Non >60 GFR- >60 Calcium, Serum 8.5 L ALB 3.1 L ALKP 72 T Pro 6.4 T Bili 0.4 Alanine Aminotransferase, Serum 9 Aspartate Transaminase, Serum 10 Current Active Medications/PN: Aspirin Enteric Coated, Enteric Coated Tablet (ECOTRIN) DOSE = 81 mg Oral Daily, 02-Feb-2021 oxyCODONE Extended Release, Tablet, Extended Release (OXYCONTIN) DOSE = 10 mg Oral Every 12 Hours, 02-Feb-2021 oxyCODONE Immediate Release, Tablet (OXYIR, ROXICODONE) DOSE = 5 mg Oral Every 4 Hours, PRN Pain - Severe (7-10), 02-Feb-2021 Acetaminophen, Tablet (TYLENOL) DOSE = 975 mg Oral Every 8 Hours, 02-Feb-2021 Gabapentin, Capsule DOSE = 300 mg Oral 2 Times a Day, 02-Feb-2021 Atorvastatin, Tablet (LIPITOR) DOSE = 20 mg Oral Daily, 02-Feb-2021 Baclofen, Tablet (LIORESAL) DOSE = 20 mg Oral 3 Times a Day, 02-Feb-2021 Bumetanide, Tablet (BUMEX) DOSE = 0.5 mg Oral 2 Times a Day, 02-Feb-2021 Docusate 50 mg - Senna 8.6 mg, Tablet (SENOKOT S) DOSE = 2 tablet(s) Oral 2 Times a Day, 02-Feb-2021 Donepezil, Tablet (ARICEPT) DOSE = 5 mg Oral At Bedtime, 02-Feb-2021 Insulin Glargine (Lantus) Inje (more content not included)... Normal [facility] PT/INRon 02-04-2021 PT Coag (PPP) [Time] 14.0 s High 10.1 - 13.3 [facility] Comment on above: Performed By: #### B MP #### [place] [address] PT, INR 1.2 High 0.9 - 1.1 [facility] Comment on above: Performed By: #### B MP #### [place] [address] VANCOMYCIN,TROUGHon 02-05-20 21 VANCOMYCIN,TROUGH 22.1 ug/mL Critically high 5.0 - 20.0 [facility] Comment on above: Order Comment: Donna Martínezjacinto Marroquiners, 02/04/2021 08:28 Result Comment: Vanc omycin levels should be interpreted in conjunction with the dose, disease being treated, vancomycin JERRY, time of draw (trough concentrations should be obtained just before the next dose at steady-state), and other clinical information. Trough concentrations of 15-20 ug/mL are desired for severe infections. Ref.: Am J Health-Syst Pharm 66: 83-98, 2009. Mark Anthony- RB to Arleen Olvera, 02/04/2021 08:28 Performed By: #### G LAYNE #### [place] [address] Admission Risk Screen - Adul ton 02-03-2021 Admission Risk Screen - Adult Allergies: Allergies: No Known Allergies: Patient Verification: New W ID Band Applied in my Departmentno Type of ID Patient is WearingW wristband, but not applied here Patient Transferred from Other Facility ([facility], [facility],etc)no Patient Identity Verified Bypatient ID Band FULL Name, include Middle, spelling matches patient's ID used for verificationyes ID Band Matches Patient ID used for Verficationyes ID Band MRN Matches EMR MRNyes Visitor Restriction: Coronavirus Visitor Restriction: Reasonable restrictions to in-person visitors will be observed due to current coronavirus pandemic. Travel History: COVID-19 Screening Completedno exposure or symptoms(1) Travel or Exposure Past 30 DaysNO travel to International locations in the past 30 days Ebola AlertFor Ebola-like Symptoms: Isolate Patient and Notify Provider/Trial Judge For Contact: Notify Provider/Trial Judge Advance Directive: Advance Directive/DNRyes (2) Advance Directive typeDNR- CCA(2) [place] Fall Screen: History of falling (immediate or previous)no (0) Secondary Diagnosisyes (15) Intravenous Therapy/ Heparin/Saline Lockyes (20) Gait/Transferringnormal/be drest/wheelchair (0) Ambulatory Aidsnone/bedrest/nurse assist (0) Mental Statusoriented to own ability (0) Score: Low risk (<25). Moderate risk (25-44). High risk (>44).35 [place] InterventionsMODERATE INTERVENTIONS: *Low Interventions Plus: * falls risk band/sticker applied to patient, *yellow non-skid footwear, *instruct to call for assistance before getting out of bed, *bed/chair/bedside commode/toilet alarms, *sensory devices/ambulatory aides available and in reach, *medications reviewed for potential side effects and care planning., is bedbound Family Violence Screen: Are you or have you been threatened or abused physically, emotionally, or sexually by anyoneno Do you feel UNSAFE going back to the place where you are livingno Clinical assessment: Are there any apparent signs of injuries/behaviors that could be related to abuse/neglectno Social Service Consult for abuse/neglect needed this visitno Functional Screen: Functional Screen: In the recent/past 2-4 weeks, patient or family have noticedno issues that require a speech/language consult at this time AM-PAC- Basic Mobility/Daily Activity: Patient baseline bedboundyes Learning Assessment (Patient): Patient is Able to be Assessed for Learningyes Factors Influencing Readiness to Learninterest in learning Factors that Impact Ability to Learnnone Devices/Methods Used to Communicatenone Learning Preferencesverbal instruction Cultural Considerationsnone Developmental Considerationsnone Gnosticism Considerationsnone Learning Assessment (Other Learner): Other learner availableno Depression Screen: During the past month, have you often been bothered by feeling down, depressed or hopelessno During the past month, have you often had little interest or pleasure in doing thingsno Have you had any thoughts of harming anyone elseno (1) [place] Suicide: Risk Screen Not Applicable/Able to Answerable to be screened In the Past Month: Have you wished you were or could go to sleep and not wake upno(1) In the Past Month: Have you had any actual thoughts of killing yourself no(1) Lifetime: Have you ever done, started to do, or prepared to do anything to end your lifeno [place] Suicide Risknegative Adult Nutrition Screen: Have you recently lost weight without tryingno Have you been eating poorly because of a decreased appetiteno Malnutrition Screening Tool Score0 Malnutrition Screening Tool RiskMST = 0 or 1 Not at risk. Eating well with little or no weight loss Additional Risk (Order Nutrition Consult)large or nonhealing wound, burn or pressure ulcer Nutrition Consult needed this visityes Can Patient Participate in Room Serviceyes, with assistance Patient requires Paper Dishes/Plastic Utensilsno Pain Screen: Pain Scalenumerical 0-10 Pain Scale Educationteaching provided Current Pain Level10 = Severe Acceptable Pain Level5 = Moderate Expression of Pain (nonverbal)crying, moaning Chronic Painyes Chronic Pelvic pain locationright, hip Chronic Lower Extremity pain locationright, knee, leg Spiritual Screen: Are there any cultural, spiritual, taoism practices/values/needs that are important for us to knowno Would you like your Senior Game Developer/Pasteurizer notifiedno CAGE: Is this an injured patient at a Trauma Center ([facility]/Adams/Ashu/Quan/Cynthia Gonzalez/Gregory): no (2) Vaccinations: Vaccination - Influenza Vaccination Screen: Is it flu season (between and June 30)Yes Screening for identified contraindications to influenza vaccinationpatient already received vaccine this season Vaccination - Pneumonia Vaccination Screen: Patient has received a previous pneumonia vacci (more content not included)... Normal [facility] BASIC METABOLIC PANELon 11-0 Anion gap [Moles/Vol] 10 mmol/L Normal - [facility] Comment on above: Performed By: #### C BCDF #### [facility] [address] [place] [address] Calcium [Mass/Vol] 8.2 mg/dL Low 8.6 - 10.3 [facility] Comment on above: Performed By: #### C BCDF #### [address] [address] Chloride [Moles/Vol] 107 mmol/L Normal 98 - 107 [facility] Comment on above: Performed By: #### C BCDF #### [address] [address] Creatinine [Mass/Vol] 0.64 mg/dL Normal 0.50 - 1.05 [facility] Comment on above: Performed By: #### C BCDF #### [address] [address] GFR- AM. >60 Normal >60 [facility] Comment on above: Result Comment: CALC ULATIONS OF ESTIMATED GFR ARE PERFORMED USING THE MDRD STUDY EQUATION FOR THE IDMS-TRACEABLE CREATININE METHODS. CLIN CHEM 2007;53:766-72 Performed By: #### C BCDF #### [address] [address] GFR-NON AM. >60 Normal >60 [facility] Comment on above: Performed By: #### C BCDF #### [address] [address] Glucose [Mass/Vol] 172 mg/dL High 74 - 99 [facility] Comment on above: Performed By: #### C BCDF #### [address] [address] HCO3 (Bld) [Moles/Vol] 29 mmol/L Normal 21 - 32 [facility] Comment on above: Performed By: #### C BCDF #### [address] [address] Potassium [Moles/Vol] 4.0 mmol/L Normal 3.5 - 5.3 [facility] Comment on above: Performed By: #### C BCDF #### [address] [address] Sodium [Moles/Vol] 142 mmol/L Normal 136 - 145 [facility] Comment on above: Performed By: #### C BCDF #### [address] [address] Urea nitrogen [Mass/Vol] 17 mg/dL Normal 6 - 23 [facility] Comment on above: Performed By: #### C BCDF #### [address] [address] ANION GAP Canceled Normal [facility] Comment on above: Order Comment: TEST BASIC METABOLIC PANEL WAS CANCELLED, 02/03/2021 01:29 Performed By: #### B MP #### [address] [address] BICARBONATE Canceled Normal [facility] Comment on above: Order Comment: TEST BASIC METABOLIC PANEL WAS CANCELLED, 02/03/2021 01:29 Performed By: #### B MP #### [place] [id number] CALCIUM Canceled Normal [facility] Comment on above: Order Comment: TEST BASIC METABOLIC PANEL WAS CANCELLED, 02/03/2021 01:29 Performed By: #### B MP #### [place] [id number] CHLORIDE Canceled Normal [facility] Comment on above: Order Comment: TEST BASIC METABOLIC PANEL WAS CANCELLED, 02/03/2021 01:29 Performed By: #### B MP #### [place] [id number] CREATININE Canceled [facility] Comment on above: Order Comment: TEST BASIC METABOLIC PANEL WAS CANCELLED, 02/03/2021 01:29 Performed By: #### B MP #### [address] [address] GFR- AM. Canceled [facility] Comment on above: Order Comment: TEST BASIC METABOLIC PANEL WAS CANCELLED, 02/03/2021 01:29 Result Comment: CALC ULATIONS OF ESTIMATED GFR ARE PERFORMED USING THE MDRD STUDY EQUATION FOR THE IDMS-TRACEABLE CREATININE METHODS. CLIN CHEM 2007;53:766-72 Performed By: #### B MP #### [place] [id number] GFR-NON AM. Canceled [facility] Comment on above: Order Comment: TEST BASIC METABOLIC PANEL WAS CANCELLED, 02/03/2021 01:29 Performed By: #### B MP #### [address] [address] GLUCOSE Canceled [facility] Comment on above: Order Comment: TEST BASIC METABOLIC PANEL WAS CANCELLED, 02/03/2021 01:29 Performed By: #### B MP #### [address] [address] POTASSIUM Canceled [facility] Comment on above: Order Comment: TEST BASIC METABOLIC PANEL WAS CANCELLED, 02/03/2021 01:29 Performed By: #### B MP #### [address] [address] SODIUM Canceled [facility] Comment on above: Order Comment: TEST BASIC METABOLIC PANEL WAS CANCELLED, 02/03/2021 01:29 Performed By: #### B MP #### [address] [address] UREA NITROGEN Canceled [facility] Comment on above: Order Comment: TEST BASIC METABOLIC PANEL WAS CANCELLED, 02/03/2021 01:29 Performed By: #### B MP #### [address] [address] CBCon 02-03-2021 Erythrocyte distribution width (RBC) [Ratio] 16.3 % High 11.5 - 14.5 [facility] Comment on above: Performed By: #### C BCDF #### [address] [address] Hematocrit (Bld) [Volume fraction] 29.2 % Low 36.0 - 46.0 [facility] Comment on above: Performed By: #### C BCDF #### [address] [address] Hemoglobin (Bld) [Mass/Vol] 9.3 g/dL Low 12.0 - 16.0 [facility] Comment on above: Performed By: #### C BCDF #### [address] [place] [address] MCHC (RBC) [Mass/Vol] 31.9 g/dL Low 32.0 - 36.0 [facility] Comment on above: Performed By: #### C BCDF #### [address] [address] MCV (RBC) [Entitic vol] 94 fL Normal 80 - 100 [facility] Comment on above: Performed By: #### C BCDF #### [address] [address] Platelets (Bld) [#/Vol] 219 10*3/uL Normal 150 - 450 [facility] Comment on above: Performed By: #### C BCDF #### [address] [address] RBC 3.09 x10E12/L Low 4.00 - 5.20 [facility] Comment on above: Performed By: #### C BCDF #### [address] [address] WBC (Bld) [#/Vol] 5.3 10*3/uL Normal 4.4 - 11.3 [facility] Comment on above: Performed By: #### C BCDF #### [address] [address] CBC AND DIFFERENTIALon 02-03 % BASOPHIL Canceled Normal [facility] Comment on above: Order Comment: TEST CBC AND DIFFERENTIAL WAS CANCELLED, 02/03/2021 01:29 Performed By: #### C BCDF #### [address] [address] % EOSINOPHIL Canceled Normal [facility] Comment on above: Order Comment: TEST CBC AND DIFFERENTIAL WAS CANCELLED, 02/03/2021 01:29 Performed By: #### C BCDF #### [address] [address] % LYMPHOCYTE Canceled Normal [facility] Comment on above: Order Comment: TEST CBC AND DIFFERENTIAL WAS CANCELLED, 02/03/2021 01:29 Performed By: #### C BCDF #### [address] [address] % MONOCYTE Canceled Normal [facility] Comment on above: Order Comment: TEST CBC AND DIFFERENTIAL WAS CANCELLED, 02/03/2021 01:29 Performed By: #### C BCDF #### [address] [address] % NEUTROPHIL Canceled Normal [facility] Comment on above: Order Comment: TEST CBC AND DIFFERENTIAL WAS CANCELLED, 02/03/2021 01:29 Performed By: #### C BCDF #### [address] [address] BASOPHIL Canceled Normal [facility] Comment on above: Order Comment: TEST CBC AND DIFFERENTIAL WAS CANCELLED, 02/03/2021 01:29 Performed By: #### C BCDF #### [address] [address] DIFFERENTIAL Canceled Normal [facility] Comment on above: Order Comment: TEST CBC AND DIFFERENTIAL WAS CANCELLED, 02/03/2021 01:29 Performed By: #### C BCDF #### [address] [address] EOSINOPHIL Canceled Normal [facility] Comment on above: Order Comment: TEST CBC AND DIFFERENTIAL WAS CANCELLED, 02/03/2021 01:29 Performed By: #### C BCDF #### [address] [address] HCT Canceled Normal [facility] Comment on above: Order Comment: TEST CBC AND DIFFERENTIAL WAS CANCELLED, 02/03/2021 01:29 Performed By: #### C BCDF #### [address] [address] HGB Canceled Normal [facility] Comment on above: Order Comment: TEST CBC AND DIFFERENTIAL WAS CANCELLED, 02/03/2021 01:29 Performed By: #### C BCDF #### [address] [address] LYMPHOCYTE Canceled Normal [facility] Comment on above: Order Comment: TEST CBC AND DIFFERENTIAL WAS CANCELLED, 02/03/2021 01:29 Performed By: #### C BCDF #### [place] [address] MCHC Canceled [facility] Comment on above: Order Comment: TEST CBC AND DIFFERENTIAL WAS CANCELLED, 02/03/2021 01:29 Performed By: #### C BCDF #### [place] [address] MCV Canceled [facility] Comment on above: Order Comment: TEST CBC AND DIFFERENTIAL WAS CANCELLED, 02/03/2021 01:29 Performed By: #### C BCDF #### [place] [address] MONOCYTE Canceled [facility] Comment on above: Order Comment: TEST CBC AND DIFFERENTIAL WAS CANCELLED, 02/03/2021 01:29 Performed By: #### C BCDF #### [place] [address] NEUTROPHIL Canceled [facility] Comment on above: Order Comment: TEST CBC AND DIFFERENTIAL WAS CANCELLED, 02/03/2021 01:29 Result Comment: Perc ent differential counts (%) should be interpreted in the context of the absolute cell counts (cells/L). Performed By: #### C BCDF #### [place] [address] PLT Canceled [facility] Comment on above: Order Comment: TEST CBC AND DIFFERENTIAL WAS CANCELLED, 02/03/2021 01:29 Performed By: #### C BCDF #### [place] [address] RBC Canceled [facility] Comment on above: Order Comment: TEST CBC AND DIFFERENTIAL WAS CANCELLED, 02/03/2021 01:29 Performed By: #### C BCDF #### [place] [address] RDW-CV Canceled [facility] Comment on above: Order Comment: TEST CBC AND DIFFERENTIAL WAS CANCELLED, 02/03/2021 01:29 Performed By: #### C BCDF #### [place] [id number] WBC Canceled [facility] Comment on above: Order Comment: TEST CBC AND DIFFERENTIAL WAS CANCELLED, 02/03/2021 01:29 Performed By: #### C BCDF #### [address] [address] Clinical Event Note-Pharmacy Vancomycin Consult Noteon 02-03-2021 Clinical Event Note-Pharmacy Vancomycin Consult Note Clinical Event: Clinical Event Note: TopicPharmacy Vancomycin Consult Note Details Salazar Coyle is a 70 year old morbidly obese female (193.7kg) being initiated on pharmacy to dose vancomycin for a Rt. Foot Infection with goal vancomycin trough of 10-15. Patient is on day 1 of vancomycin therapy. Renal function is currently stable with a SCr of 0.62 and estimated CrCl greater than 100 ml/min. Patient will be initiated on vancomycin 2g IV q12h. Follow-up trough level is ordered for 02/04 0700 unless clinically indicated sooner. Pharmacy will continue daily vancomycin monitoring. Please contact the pharmacy at extension [phone] with any questions. Valentina Ellis [facility] Electronic Signatures: Valentina Ellis ([facility]) (Signed 03-Feb-2021 08:04) Authored: Clinical Event Note Last Updated: 03-Feb-2021 08:04 by Valentina Ellis ([facility]) [facility] Daily Progress Note-General Internal Medicineon 02-03-2021 Daily Progress Note-General Internal Medicine Consult Type: subsequent visit/care Service: General Internal Medicine Subjective Data: SALAZAR COYLE is a 70 year old Female who is Hospital Day # 2. Overnight Events: Patient had an uneventful night. Objective Data: Objective Information: T PRBPSpO2 [id number]/5491% Date/Time02/03 4: 4: 4: 4: 4:00 Range(37C - 37.7C ) (84 - 102 ) (18 - 20 ) (101 - 147 )/ (54 - 82 ) (91% - 94% ) Highest temp of 37.7 C was recorded at 02/02 18:17 Pain reported at 02/03 4:00: sleeping Physical Exam by System: Constitutional: awake/alert/oriented x3, not in acute distress, significantly obese Eyes: PERRL, EOMI, clear sclera ENMT: normal hearing, mucous membranes moist, no pharyngeal erythema or exudates Head/Neck: neck supple, no apparent injury, no JVD, no lymphadenopathy, trachea midline Respiratory/Thorax: patent airways, clear to auscultation bilaterally, no crackles or wheezing or rhonchi Cardiovascular: Regular, rate and rhythm, no murmurs, 2+ equal pulses of the extremities Gastrointestinal: Significantly distended from the obesity, positive bowel sounds, soft, non-tender, no rebound tenderness or guarding, no masses palpable, no organomegaly Extremities: Right lower leg and right foot severe erythema with a foul smell and drainage. There is dressing along the right foot that is wet with serous foul drainage. Neurological: intact senses, motor, patient refuses to have right foot touched Psychological: Appropriate mood and behavior Skin: Pale color Medication: Medications: Continuous Medications ------ No continuous medications are active Scheduled Medications ------ 1. Acetaminophen: 975 mg Oral Every 8 Hours 2. Aspirin Enteric Coated: 81 mg Oral Daily 3. Atorvastatin: 20 mg Oral Daily 4. Baclofen: 20 mg Oral 3 Times a Day 5. Bumetanide: 0.5 mg Oral 2 Times a Day 6. Docusate 50 mg - Senna 8.6 m tablet(s) Oral 2 Times a Day 7. Donepezil: 5 mg Oral At Bedtime 8. Gabapentin: 300 mg Oral 2 Times a Day 9. Insulin Glargine (Lantus) Injectable: 55 unit(s) SubCutaneous Daily Before First Meal 10. Insulin Glargine (Lantus) Injectable: 35 unit(s) SubCutaneous Daily Before Third Meal 11. Insulin Lispro (HUMALOG) Carb/ISF Calculator: 1 dose(s) SubCutaneous Before Meals & Bedtime 12. Lactobacillus: 1 each Oral 3 Times a Day 13. oxyCODONE Extended Release: 10 mg Oral Every 12 Hours 14. Piperacillin - Tazobactam 3.375 gram/Iso-osmotic 50 mL Premix IVPB: 50 mL IntraVenous Piggyback Every 6 Hours 15. Vancomycin - RPh to Dose - IV Piggy Back: 1 each As Specified Variable 16. Vancomycin IV Piggy Back: 2 gram(s) IntraVenous Piggyback Every 12 Hours PRN Medications ------ 1. Acetaminophen: 650 mg Oral Every 4 Hours 2. Magnesium Hydroxide Oral Liquid CONCENTRATE: 10 mL Oral Every 24 Hours 3. Ondansetron Injectable: 4 mg IntraVenous Push Every 4 Hours 4. oxyCODONE Immediate Release: 5 mg Oral Every 4 Hours 5. traMADol: 50 mg Oral Every 6 Hours Recent Lab Results: Results: I have reviewed these laboratory results: Complete Blood Count 03-Feb-2021 05:06:00 ResultValue White Blood Cell Count 5.3 Red Blood Cell Count 3.09 L HGB 9.3 L HCT 29.2 L MCV 94 MCHC 31.9 L PLT 219 RDW-CV 16.3 H Basic Metabolic Panel 03-Feb-2021 05:06:00 ResultValue Glucose, Serum 172 H NA 142 K 4.0 CL 107 Bicarbonate, Serum 29 Anion Gap, Serum 10 BUN 17 CREAT 0.64 GFR-Non >60 GFR- >60 Calcium, Serum 8.2 L Magnesium, Serum 03-Feb-2021 05:06:00 ResultValue Magnesium, Serum 2.04 Phosphorus, Serum 03-Feb-2021 05:06:00 ResultValue Phosphorus, Serum 4.0 Urinalysis with Culture if Indicated 03-Feb-2021 01:09:00 ResultValue Color, Urine Yellow Reference Range: STRAW,YELLOW Appearance, Urine HAZY Specific [place], Urine 1.023 pH, Urine 7.0 Protein, Urine 100(2+) A Glucose, Urine NEGATIVE Blood, Urine MODERATE(2+) A Ketones, Urine 5(TRACE) A Bilirubin, Urine NEGATIVE Urobilinogen, Urine <2.0 Nitrite, Urine Negative Leukocyte Esterase, Urine MODERATE(2+) A Urinalysis, Microscopic 03-Feb-2021 01:09:00 ResultValue White Cells >182 A WBC Clumps MANY Red Blood Cells 79 A Bacteria, Urine 4+ A Mucous 2+ Amorphous Crystals 2+ Radiology Results: Results: Impression: 1. Diffuse osteopenia. No obvious periosteal reaction is identified. If there is persistent clinical concern for osteomyelitis, MRI can be obtained for further evaluation. 2. Marked diffuse soft tissue swelling at the visualized right foot and right lower leg with interval increase in the overlying skin thickening. Air trapping in between the skin creases is limiting evaluation for soft tissue emphysema. Areas of lucency at the soft tissues along (more content not included)... Normal [facility] Discharge Planning [id number] 1 04-05-2020 Discharge Planning Note2 Discharge Planning: Planned Dispositionskilled/rehab/e xtended care [facility] Patient/Registered Nurse Maternity Stated [facility] -return lt Anticipated Discharge [id number] Discharge Planning 02/03/21 1:30 Kinjal DALY RN TCC Met with patient and family and they want patient returned to that facility. The patient is here with concerns vascular and cellulites. Spouse and patient both advise patient has been totally bedbound for 4 yrs. Patient would be a return to [facility] as she is a penitentiary bed hold there. Patient cried out when TCC incidentally touched top blanket she advises that any care below the knee is intolerable to her. Facility want a wt. and at this moment nursing will be checking the bed scale today but initial information was that pt was 427 . PCN is placing referral in [facility]. kb 02/03/2021 12:10 PCN: Per TCC, built and sent referral for a RETURN to [facility] via [facility]. TIGRE Rodriguez 02/04/21 Kinjal GARZA Per afternoon medical team rounds patient is refusing treatment and evaluations. She is being continue for now on present treatment plan. There is now a palliative care plan. When TCC met with patient and spouse it was apparent that spouse was very up to date with information and he in fact advised that he was the better information resource. kb Assessment: Discharge Planning Assessment [id number] Lives Withalone(1) Living Arrangementsresidential facility/residential(1) Stated Reason for Admissionulcer on right foot needs checked (1) Arrived Fromemergency department (1) Resource/Environmental Concernsnone(1) Anticipated Transition Toresidential/residential(1) Services Anticipated at Transitionnone(1) Electronic Signatures: Kim Baeza (PCN) (Signed 03-Feb-2021 14:02) Authored: Discharge Planning Dina Daly ([facility]) (Signed 04-Feb-2021 15:41) Authored: Discharge Planning, Assessment Last Updated: 04-Feb-2021 15:41 by Dina Daly ([facility]) References: 1. Data Referenced From Patient Profile - Adult v2" 02-Feb-2021 23:35 Normal [facility] GLUCOSE-POCTon 02-03-2021 Glucose [Mass/Vol] 182 mg/dL High 74 - 99 [facility] Comment on above: Performed By: #### C BCDF #### [address] [address] Glucose [Mass/Vol] 154 mg/dL High [address] [place] [address] Comment on above: Performed By: #### C BCDF #### [address] [address] Glucose [Mass/Vol] 226 mg/dL High [address] [place] [address] Comment on above: Performed By: #### C BCDF #### [address] [address] Glucose [Mass/Vol] 182 mg/dL High [address] [place] [address] Comment on above: Performed By: #### G LAYNE #### [address] [address] MAGNESIUMon 02-03-2021 Magnesium [Mass/Vol] 2.04 mg/dL Normal 1.60 - 2.40 [facility] Comment on above: Performed By: #### C BCDF #### [address] [address] MAGNESIUM Canceled Normal [facility] Comment on above: Order Comment: TEST MAGNESIUM WAS CANCELLED, 02/03/2021 01:29 Performed By: #### M G #### [address] [address] PHOSPHORUSon 02-03-2021 Phosphate [Mass/Vol] 4.0 mg/dL Normal 2.5 - 4.9 [facility] Comment on above: Result Comment: The performance characteristics of phosphorus testing in heparinized plasma have been validated by the individual laboratory site where testing is performed. Testing on heparinized plasma is not approved by the FDA; however, such approval is not necessary. Performed By: #### G LAYNE #### [address] [address] PHOSPHORUS Canceled Normal [facility] Comment on above: Order Comment: TEST PHOSPHORUS WAS CANCELLED, 02/03/2021 01:29 Result Comment: The performance characteristics of phosphorus testing in heparinized plasma have been validated by the individual laboratory site where testing is performed. Testing on heparinized plasma is not approved by the FDA; however, such approval is not necessary. Performed By: #### P HOS #### [address] [address] Patient Profile - Adult v2on 02-03-2021 Patient Profile - Adult v2 Profile: Initial Info: How to be AddressedGail(1) Spoken Language PreferredEnglish (2) Source of Informationpatient Stated Reason for Admissionulcer on right foot needs checked Wants Family/Rep Notified of Admissionno Notify PCPdo not notify PCP Informed of Patient Visiting Rightsyes Arrived Fromemergency department Was Admitted To in Past 90 Daysresidential facility Employment Statusdisabled Current or Previous Servicenone Patient Belongingsnone Medications Brought to Hospitalno General Health: Weight in kg193.7 kilogram(s) Weight in xoi928 pound(s) Weight Methodactual (measured) Scale Typebed Height in cm170.1 centimeter(s) Height in feet5 feet(3) Height in inches7 inch(es)(3) Height Methodstated BMI (kg/m2)66.945 square meter RSP Based Care: How would you like to participate in your care"take my pain pills when they're due" What is the number one concern for you during this hospitalization"my pain in my right leg" What is the most important thing we can do to support you during this hospitalization"don't move my right leg" Is there anything we need to know to best care for you"my right leg hurts from top to bottom" Substance: Smoking Statusnever smoker (4) Alcohol Usedenies(4) Drug Usedenies (4) Drug 2 Usedenies (4) Health Mgmt: Symptoms/Conditions Managed at Homemusculoskeletal; cardiovascular; respiratory Cardiovascular Symptoms/Conditionshyperte nsion; heart failure Cardiovascular Management Strategiesmedication therapy Cardiovascular Managementnot managed Cardiovascular Symptoms/Conditions Commentextremities swelling Musculoskeletal Symptoms/Conditionsmobilit y limited; osteoarthritis Musculoskeletal Managementnot managed Musculoskeletal Symptoms/Conditions Commentcan't walk Respiratory Symptoms/Conditionshypoxia Respiratory Managementmanaged Respiratory Symptoms/Conditions Commentstates that she hasn't been wearing oxygen for more than a month Relationship/Environ: Significant Exposurenone Resource/Environmental Concernsnone Primary Source of Support/Comfortspouse Lives Withalone Living Arrangementsresidential facility/residential Services Anticipated at Transitionnone Anticipated Transition Toresidential/residential Significant IndicatorsComplete Information Review: Allergies, Home Meds and Significant Events have been Reviewed and Verified with Patient/Familyyes ALLERGY, INTOLERANCE, ADVERSE EVENT: Allergies: No Known Allergies: Active Electronic Signatures: Charlotte Chilel (RN) (Signed 02-Feb-2021 23:49) Authored: Initial Info, General Health, RSP Based Care, Substance, Health Mgmt, Relationship/Environ, Additional Information Last Updated: 02-Feb-2021 23:49 by Charlotte Chilel (RN) References: 1. Data Referenced From Patient Profile - Adult v2" 05-Aug-2019 22:48 2. Data Referenced From "Triage - ED" 02-Feb-2021 18:17 3. Data Referenced From 1. Vital Signs 02-Feb-2021 18:17 4. Data Referenced From Risk Screen - Adult Emergency" 02-Feb-2021 18:21 Normal [facility] UA MICROSCOPICon 02-03-2021 AMORPHOUS CRYSTAL 2+ /HPF Normal [facility] Comment on above: Performed By: #### B MP #### [address] [address] BACTERIA 4+ /HPF Abnormal [facility] Comment on above: Performed By: #### B MP #### [address] [address] Mucus Ql (Urine sed) 2+ /LPF Normal [facility] Comment on above: Performed By: #### B MP #### [address] [address] RBC 79 /HPF Abnormal 0-5 [facility] Comment on above: Performed By: #### B MP #### [address] [address] WBC (U) [#/Vol] /uL Abnormal 0-5 [facility] Comment on above: Performed By: #### B MP #### [address] [address] WBC CLUMPS MANY Normal [facility] Comment on above: Performed By: #### B MP #### [place] [id number] URINALYSIS WITH CULTURE IF I NDICATEDon 02-03-2021 Appearance (U) HAZY Normal CLEAR [facility] Comment on above: Performed By: #### U ARFX #### [place] [id number] Bilirubin Ql (U) Negative Normal NEGATIVE [facility] Comment on above: Performed By: #### U ARFX #### [place] [address] Color (U) Yellow Normal STRAW,YELLO W [facility] Comment on above: Performed By: #### U ARFX #### [address] [address] Glucose Ql (U) Negative Normal NEGATIVE [facility] Comment on above: Performed By: #### U ARFX #### [address] [address] Hemoglobin Ql (U) MODERATE(2+) Abnormal NEGATIVE [facility] Comment on above: Performed By: #### U ARFX #### [address] [address] Ketones Ql (U) 5(TRACE) Abnormal NEGATIVE [facility] Comment on above: Performed By: #### U ARFX #### [address] [address] Leukocyte esterase Test strip Ql (U) MODERATE(2+) Abnormal NEGATIVE [facility] Comment on above: Performed By: #### U ARFX #### [place] [id number] Nitrite Ql (U) Negative Normal NEGATIVE [facility] Comment on above: Performed By: #### U ARFX #### [place] [address] pH (U) 7.0 [pH] Normal 5.0 - 8.0 [facility] Comment on above: Performed By: #### U ARFX #### [place] [address] Protein Ql (U) 100(2+) Abnormal NEGATIVE [facility] Comment on above: Performed By: #### U ARFX #### [place] [address] Specific gravity (U) [Rel density] 1.023 Normal 1.005 - 1.035 [facility] Comment on above: Performed By: #### U ARFX #### [place] [address] Urobilinogen (U) [Mass/Vol] mg/dL Normal 0.0 - 1.9 [facility] Comment on above: Performed By: #### U ARFX #### [place] [address] Lab Specimen Source Normal [facility] Comment on above: Performed By: #### U ARFX #### [place] [address] Performed By: #### B MP #### [place] [address] URINE CULTURE,BACTERIALon URINE CULTURE,BACTERIAL PATIENT: SALAZAR COYLE LOCATION: [address]#: [id number] : 46 AGE: SEX: F ORDERED BY: NATO CADET SOURCE: URINE COLLECTED: 02/03/21 01:09 ANTIBIOTICS AT [place].: RECEIVED : 02/03/21 11:38 SITE: R E S U L T S URINE CULTURE,BACTERIAL FINAL 02/04/21 09:10 MULTIPLE ORGANISMS PRESENT, PROBABLE CONTAMINATION PLEASE REPEAT CULTURE. Normal [facility] Comment on above: Performed By: #### G LAYNE #### [address] [address] BLOOD CULTURE, BACTERIALon 1 04-04-2020 BLOOD CULTURE, BACTERIAL PATIENT: SALAZAR COYLE LOCATION: [place]#: [id number] : 46 AGE: SEX: F ORDERED BY: NATO CADET SOURCE: Blood COLLECTED: 02/02/21 18:45 ANTIBIOTICS AT [place].: RECEIVED : 02/02/21 23:03 SITE: left ac R E S U L T S BLOOD CULTURE, BACTERIAL FINAL 02/07/21 23:42 No Growth at 1 days No Growth at 2 days No Growth at 3 days No Growth at 4 days NO GROWTH - FINAL REPORT Normal [facility] Comment on above: Performed By: #### P HOS #### [place] [id number] BLOOD CULTURE, BACTERIAL PATIENT: SALAZAR COYLE [facility] [place] [id number] : 46 AGE: SEX: F ORDERED BY: NATO CADET SOURCE: Blood COLLECTED: 02/02/21 18:45 ANTIBIOTICS AT [place].: RECEIVED : 02/02/21 23:01 SITE: right arm R E S U L T S BLOOD CULTURE, BACTERIAL FINAL 02/07/21 23:42 No Growth at 1 days No Growth at 2 days No Growth at 3 days No Growth at 4 days NO GROWTH - FINAL REPORT Normal [facility] Comment on above: Performed By: #### P HOS #### [place] [id number] C-REACTIVE PROTEINon 021 C-REACTIVE PROTEIN 16.35 mg/dL Abnormal [facility] Comment on above: Result Comment: REF VALUE < 1.00 Performed By: #### G LAYNE #### [place] [address] CBC AND DIFFERENTIALon 02-02 Basophils (Bld) [#/Vol] 0.10 10*3/uL Normal 0.00 - 0.10 [facility] Comment on above: Performed By: #### B MP #### [address] [address] Basophils/100 WBC (Bld) 0.8 % Normal 0.0 - 2.0 [facility] Comment on above: Performed By: #### B MP #### [address] [address] Eosinophils (Bld) [#/Vol] 0.30 10*3/uL Normal 0.00 - 0.40 [facility] Comment on above: Performed By: #### B MP #### [address] [address] Eosinophils/100 WBC (Bld) 3.6 % Normal 0.0 - 6.0 [facility] Comment on above: Performed By: #### B MP #### [address] [address] Erythrocyte distribution width (RBC) [Ratio] 16.4 % High 11.5 - 14.5 [facility] Comment on above: Performed By: #### B MP #### [address] [address] Hematocrit (Bld) [Volume fraction] 32.6 % Low 36.0 - 46.0 [facility] Comment on above: Performed By: #### B MP #### [address] [address] Hemoglobin (Bld) [Mass/Vol] 10.3 g/dL Low 12.0 - 16.0 [facility] Comment on above: Performed By: #### B MP #### [address] [address] Lymphocytes (Bld) [#/Vol] 1.30 10*3/uL Normal 0.80 - 3.00 [facility] Comment on above: Performed By: #### B MP #### [address] [address] Lymphocytes/100 WBC (Bld) 18.1 % Normal 13.0 - 44.0 [facility] Comment on above: Performed By: #### B MP #### [address] [address] MCHC (RBC) [Mass/Vol] 31.6 g/dL Low 32.0 - 36.0 [facility] Comment on above: Performed By: #### B MP #### [address] [address] MCV (RBC) [Entitic vol] 95 fL Normal 80 - 100 [facility] Comment on above: Performed By: #### B MP #### [address] [address] Monocytes (Bld) [#/Vol] 0.60 10*3/uL Normal 0.05 - 0.80 [facility] Comment on above: Performed By: #### B MP #### [address] [address] Monocytes/100 WBC (Bld) 8.8 % Normal 2.0 - 10.0 [facility] Comment on above: Performed By: #### B MP #### [address] [address] Neutrophils (Bld) [#/Vol] 4.90 10*3/uL Normal 1.60 - 5.50 [facility] Comment on above: Result Comment: Perc ent differential counts (%) should be interpreted in the context of the absolute cell counts (cells/L). Performed By: #### B MP #### [address] [address] Neutrophils/100 WBC (Bld) 68.7 % Normal 40.0 - 80.0 [facility] Comment on above: Performed By: #### B MP #### [address] [address] NUCLEATED RBC 0.1 /100 WBC Normal [facility] Comment on above: Performed By: #### B MP #### [address] [address] Platelets (Bld) [#/Vol] 254 10*3/uL Normal 150 - 450 [facility] Comment on above: Performed By: #### B MP #### [address] [address] RBC 3.44 x10E12/L Low 4.00 - 5.20 [facility] Comment on above: Performed By: #### B MP #### [address] [address] WBC (Bld) [#/Vol] 7.1 10*3/uL Normal 4.4 - 11.3 [facility] Comment on above: Performed By: #### B MP #### [address] [address] CHEST 1 VIEWon 02-02-2021 CHEST 1 VIEW Patient Name: SALAZAR COYLE STUDY: CHEST 1 VIEW; 02/02/2021 7:19 pm INDICATION: sepsis COMPARISON: Chest x-ray 03/17/2020, 08/06/2019, 08/05/2019. ACCESSION NUMBER(S): [id number] ORDERING CLINICIAN: NATO CADET TECHNIQUE: 2 portable supine frontal views of the chest were obtained. FINDINGS: The patient is rotated. The cardiomediastinal silhouette is stable. No focal consolidation, pleural effusion or pneumothorax. IMPRESSION: 1. No radiographic evidence of acute cardiopulmonary process. Electronically signed by: CARLOS WHITING DO Normal [facility] COMPREHENSIVE PANELon 2020 Albumin [Mass/Vol] 3.1 g/dL Low 3.4 - 5.0 [facility] Comment on above: Performed By: #### P HOS #### [address] [address] ALP [Catalytic activity/Vol] 72 U/L Normal 33 - 136 [facility] Comment on above: Performed By: #### P HOS #### [address] [address] ALT [Catalytic activity/Vol] 9 U/L Normal 7 - 45 [facility] Comment on above: Result Comment: Corrina ents treated with Sulfasalazine may generate falsely decreased results for ALT. Performed By: #### P HOS #### [place] [id number] Anion gap [Moles/Vol] 11 mmol/L Normal 10 - 20 [facility] Comment on above: Performed By: #### P HOS #### [address] [address] AST [Catalytic activity/Vol] 10 U/L Normal 9 - 39 [facility] Comment on above: Performed By: #### P HOS #### [address] [address] Bilirubin [Mass/Vol] 0.4 mg/dL Normal 0.0 - 1.2 [facility] Comment on above: Performed By: #### P HOS #### [address] [address] Calcium [Mass/Vol] 8.5 mg/dL Low 8.6 - 10.3 [facility] Comment on above: Performed By: #### P HOS #### [address] [address] Chloride [Moles/Vol] 104 mmol/L Normal 98 - 107 [facility] Comment on above: Performed By: #### P HOS #### [address] [address] Creatinine [Mass/Vol] 0.65 mg/dL Normal 0.50 - 1.05 [facility] Comment on above: Performed By: #### P HOS #### [address] [address] GFR- AM. >60 Normal >60 [facility] Comment on above: Result Comment: CALC ULATIONS OF ESTIMATED GFR ARE PERFORMED USING THE MDRD STUDY EQUATION FOR THE IDMS-TRACEABLE CREATININE METHODS. CLIN CHEM 2007;53:766-72 Performed By: #### P HOS #### [address] [address] GFR-NON AM. >60 Normal >60 [facility] Comment on above: Performed By: #### P HOS #### [address] [address] Glucose [Mass/Vol] 209 mg/dL High 74 - 99 [facility] Comment on above: Performed By: #### P HOS #### [place] [id number] HCO3 (Bld) [Moles/Vol] 30 mmol/L Normal 21 - 32 [facility] Comment on above: Performed By: #### P HOS #### [place] [id number] Potassium [Moles/Vol] 4.0 mmol/L Normal 3.5 - 5.3 [facility] Comment on above: Performed By: #### P HOS #### [place] [id number] Protein [Mass/Vol] 6.4 g/dL Normal 6.4 - 8.2 [facility] Comment on above: Performed By: #### P HOS #### [place] [address] Sodium [Moles/Vol] 141 mmol/L Normal 136 - 145 [facility] Comment on above: Performed By: #### P HOS #### [place] [address] Urea nitrogen [Mass/Vol] 19 mg/dL Normal 6 - 23 [facility] Comment on above: Performed By: #### P HOS #### [place] [address] CORONAVIRUS 2019, SCREEN ASY MPTOMATICon 02-02-2021 SARS-CoV-2 (COVID-19) RNA EZIO+probe Ql (Unsp spec) Not detected Normal Not Detected [facility] Comment on above: Result Comment: . This test has received FDA Emergency Use Authorization (EUA) and has been verified by [facility]. This test is only authorized for the duration of time that circumstances exist to justify the authorization of the emergency use of in vitro diagnostic tests for the detection of SARS-CoV-2 virus and/or diagnosis of COVID-19 infection under section 564(b)(1) of the Act, 21 U.S.C. 360bbb-3(b)(1), unless the authorization is terminated or revoked sooner. [facility] is certified under CLIA-88 as qualified to perform high complexity testing. Testing is performed in the [facility] laboratory located at [address] [place] [address]. SARS-CoV-2/Flu/RSV Multiplex Test: Fact sheet for providers: https://www.fda.gov/media/806299/download Fact sheet for patients: https://www.fda.gov/media/931169/download Performed By: #### C OVSC #### [place] [address] Lab Specimen Source Nasal, Nasopharyngeal Normal [facility] Comment on above: Performed By: #### C OVSC #### [place] [id number] Covid 19 Resultson 1 SARS-CoV-2 (COVID-19) RNA EZIO+probe Ql (Unsp spec) NEGATIVE COVID-19 Test Coronaviruses are common world-wide and are the cause of many common colds. SARS-COV2 is a new coronavirus that began circulating worldwide in 2019 so we are calling it COVID-19. It has been estimated that four out of five patients with COVID-19 will recover at home without the need for medical attention. Symptoms of COVID-19 may include cough, fever, shortness of breath, loss of taste or smell and other flu-like symptoms including chills, sore muscles, sore throat, and headache. Severe illness is more common in older people and people with other health problems such as high blood pressure, obesity, and immune system problems. If the test is positive, you have COVID-19. You will be contacted by the ordering physicians office and instructed to remain on home isolation, in accordance with CDC guidelines. You may also be contacted by the [facility] to see if any of your close contacts may have been exposed to the virus and need to quarantine. If the test is negative, you likely do not have COVID-19 at this time, but you still may have a different illness that can spread to other people (like Influenza, or the Flu) and could still be at risk for getting COVID-19. We recommend that you stay away from other people to limit the spread of illness until your symptoms are improving and you are fever-free for 24 hours without the use of fever lowering medications such as acetaminophen or ibuprofen. No test is 100% accurate so if you are still concerned you may have COVID-19, talk to your doctor about the need to continue to stay away from others. Medicines Unless your provider told you not to use the following: Acetaminophen (Tylenol and others) is generally safe. Anti-inflammatory medications, such as Ibuprofen (Advil or Motrin) or Naproxen (Aleve) can also be used. Wxou-wcj-[id number] cough and cold medicines can be used according to the instructions on the package. Some uzmb-[id number] medicines also contain acetaminophen. Make sure you are not taking more than your recommended dose. For those not hospitalized, there is no specific treatment available for this illness. Antibiotics do not treat Coronaviruses. Follow-Up Follow up with your doctor by scheduling a virtual visit or consider follow-up at one of our urgent care fever clinics. If you are having difficulty breathing, or are very weak and having difficulty standing, this is a medical emergency. Call 911 or have someone take you to the nearest emergency room immediately. If possible, wear a facemask. Additional guidance from the CDC for patients who tested POSITIVE for COVID-19 How to isolate: Isolate yourself in a specific room at home and limit your contact with others. Use a separate bathroom from other members of the household, when possible. Leave home only to get essential medical care. Do not go to work, school or public areas. Avoid using public transportation, ride-sharing, or taxis. Restrict contact with pets and other animals. If you must care for your pet or be around animals while you are sick, wash your hands before and after your interaction and wear a facemask. Make sure that shared spaces in the home have good airflow, such as by an air conditioner or an opened window, weather permitting. Personal Hygiene Procedures: Wear a face mask when in the same room as other people or pets. If a face mask interferes with your breathing, others should wear a mask when sharing space with you. Frequent hand-washing: wash your hands with soap and water for at least 20 seconds. If soap and water are not available, use alcohol-based hand mechanical engineering lecturer. Avoid touching your eyes, nose, and mouth with unwashed hands. Household Hygiene Procedures: Avoid sharing personal household items such as dishes, glassware, cups, eating utensils, towels or bedding with other people or pets in your home. After use, these items should be washed with soap and hot water. Disinfect all high-touch surfaces every day with antibacterial cleaning solutions such as Lysol wipes, bleach, cleansers, etc. High-touch surfaces include tabletops, doorknobs, bathroom fixtures, toilets, phones, keyboards, tablets and bedside tables. Immediately clean any surfaces that may have blood, poop or body fluids on them, using antibacterial cleaning solutions such as Lysol wipes, bleach, cleansers, etc. If clothing or bedding come into contact with blood, poop or body fluids, they should be washed immediately. Follow the directions on the laundry detergent and clothing labels but hot water is recommended when possible. Stopping home isolation precautions: If possible, consult your doctor before stopping home isolation precautions. According to the CDC, you can discontinue home isolation precautions when you have met both of these criteria: Your fever and respiratory symptoms have been gone for 24 ruth (more content not included)... Normal [facility] EMR ADDONon 02-02-2021 ADDON CONFIRMATION REQUEST REC'D Normal [facility] Comment on above: Performed By: #### B MP #### [facility] [address] [place] [address] FOOT, 2 VIEWSon 02-02-2021 FOOT, 2 VIEWS Patient Name: SALAZAR COYLE STUDY: FOOT, 2 VIEWS; 02/02/2021 7:19 pm INDICATION: infection vs osteo . COMPARISON: Right foot x-ray 08/06/2019. ACCESSION NUMBER(S): [id number] ORDERING CLINICIAN: NATO CADET FINDINGS: AP and lateral views of the right foot were obtained. There is suboptimal patient positioning. There is diffuse osteopenia, limiting evaluation. No obvious acute displaced fracture. No obvious periosteal reaction. Redemonstration of marked diffuse soft tissue swelling at the visualized right foot and right lower leg. There has been interval increase in the overlying skin thickening. There is air trapping in between the skin creases, limiting evaluation for soft tissue emphysema. Areas of lucency are noted at the soft tissues along the dorsal aspect of the toes and lateral to the 5th metatarsal. Vascular calcifications are noted. IMPRESSION: 1. Diffuse osteopenia. No obvious periosteal reaction is identified. If there is persistent clinical concern for osteomyelitis, MRI can be obtained for further evaluation. 2. Marked diffuse soft tissue swelling at the visualized right foot and right lower leg with interval increase in the overlying skin thickening. Air trapping in between the skin creases is limiting evaluation for soft tissue emphysema. Areas of lucency at the soft tissues along the dorsal aspect of the toes and lateral to the 5th metatarsal, please correlate with clinical exam to evaluate for ulcers. Electronically signed by: CARLOS WHITING DO Normal [facility] LACTATEon 02-02-2021 Lactate [Moles/Vol] 1.9 mmol/L Normal 0.4 - 2.0 [facility] Comment on above: Result Comment: Maritza puncture immediately after or during the administration of Metamizole may lead to falsely low results. Testing should be performed immediately prior to Metamizole dosing. Performed By: #### G LAYNE #### [place] [id number] [place] [address] Order Reconciliationon 02-02 Order Reconciliation Page 1 Admission Reconciliation Document Reconciliation Type: Admission requested on behalf of Km Parry (Physician) done by Km Parry) Admission - Reconciliation: 02-Feb-2021 21:44 by: Km Parry) Home MedicationsEnteredLast Dose TakenReconciled with current Order Reconciliation Comment/ Additional Information ascorbic acid 500 mg oral tablet 1 tab(s) orally once a [id number] Reviewed and Held aspirin 81 mg oral delayed release tablet 1 tab(s) orally once a day 02-Feb-2021 Aspirin Enteric Coated Enteric Coated Tablet (ECOTRIN)DOSE = 81 mg Oral Dailyaspirin 81 mg oral delayed release tablet continued as the inpatient order Aspirin Enteric Coated baclofen 10 mg oral tablet 2 tab(s) orally 3 times a [id number] Baclofen Tablet (LIORESAL)DOSE = 20 mg Oral 3 Times a Daybaclofen 10 mg oral tablet continued as the inpatient order Baclofen Bumex 0.5 mg oral tablet 1 tab(s) orally 2 times a [id number] Bumetanide Tablet (BUMEX)DOSE = 0.5 mg Oral 2 Times a DayBumex 0.5 mg oral tablet continued as the inpatient order Bumetanide donepezil 5 mg oral tablet 1 tab(s) orally once a day (at bedtime)02-Feb-2021 Donepezil Tablet (ARICEPT)DOSE = 5 mg Oral At Bedtimedonepezil 5 mg oral tablet continued as the inpatient order Donepezil Eliquis 5 mg oral tablet 1 tab(s) orally 2 times a [id number] Reviewed and Held gabapentin 300 mg oral capsule 1 cap(s) orally 2 times a [id number] Gabapentin CapsuleDOSE = 300 mg Oral 2 Times a Daygabapentin 300 mg oral capsule continued as the inpatient order Gabapentin insulin lispro 100 units/mL subcutaneous solution subcutaneous 3 times a day (before meals)02-Feb-2021 Reviewed and Held Lantus 100 units/mL subcutaneous solution unit(s) subcutaneous 2 times a day. 55 units in AM and 35 units in [id number] Insulin Glargine (Lantus) Injectable DOSE = 55 unit(s) SubCutaneous Daily Before First MealNotes from Pharmacy: HIGH ALERT Lantus 100 units/mL subcutaneous solution continued as the inpatient order Insulin Glargine (Lantus) Injectable lidocaine 4% patch Apply topically to affected area once a day (apply 1 to left thigh and 1 to right hip)02-Feb-2021 Reviewed and Held Lipitor 20 mg oral tablet 1 tab(s) orally once a [id number] Atorvastatin Tablet (LIPITOR)DOSE = 20 mg Oral DailyLipitor 20 mg oral tablet continued as the inpatient order Atorvastatin magnesium oxide 400 mg (241.3 mg elemental magnesium) oral tablet 1 tab(s) orally once a [id number] Reviewed and Held metFORMIN 1000 mg oral tablet 1 tab(s) orally 2 times a [id number] Reviewed and Held Multi Vitamin+ 1 tab(s) orally once a [id number] Reviewed and Held nitrofurantoin macrocrystals 50 mg oral capsule 1 cap(s) orally once a day (at bedtime)02-Feb-2021 Reviewed and Held oxyCODONE 5 mg oral tablet 1 tab(s) orally every 6 hours, As Needed pain 02-Feb-2021 oxyCODONE Immediate Release Tablet (OXYIR, ROXICODONE)DOSE = 5 mg Oral Every 4 Hours, PRN Pain - Severe (7-10)oxyCODONE 5 mg oral tablet continued as the inpatient order oxyCODONE Immediate Release OxyCONTIN 10 mg oral tablet, extended release 1 tab(s) orally 2 times a day 02-Feb-2021 oxyCODONE Extended Release Tablet, Extended Release (OXYCONTIN)DOSE = 10 mg Oral Every 12 HoursOxyCONTIN 10 mg oral tablet, extended release continued as the inpatient order oxyCODONE Extended Release Senna Plus 50 mg-8.6 mg oral tablet 2 tab(s) orally 2 times a [id number] Docusate 50 mg - Senna 8.6 mg Tablet (SENOKOT S)DOSE = 2 tablet(s) Oral 2 Times a DaySenna Plus 50 mg-8.6 mg oral tablet continued as the inpatient order Docusate 50 mg - Senna 8.6 mg Tylenol 500 mg oral tablet 2 tab(s) orally 3 times a [id number] Acetaminophen Tablet (TYLENOL)DOSE = 975 mg Oral Every 8 HoursTylenol 500 mg oral tablet continued as the inpatient order Acetaminophen Zofran 4 mg oral tablet 1 tab(s) orally every 8 hours, As [id number] Reviewed and Held Normal [facility] Provider Note - ED v3on 11-0 Provider Note - ED v3 Provider Note: Chart Review: ED NOTES ED NOTES: HPI: Patient sent to the emergency department by Dr. Barbour [facility] for concerns of right foot infection. He notes that patient has multiple medical comorbidities and he is uncertain whether patient will even be a candidate for surgery but he request that patient have lab work and antibiotics initiated and then be admitted to the hospital where he will consult podiatry and further evaluation and treatment can then be discussed. On presentation patient states that she had an ulcer on her right foot several days ago which has grown and now her toes are black. Patient otherwise denies any nausea vomiting fever chest pain or shortness of breath. ROS: All systems are negative other than as noted in HPI. Physical Exam I have reviewed the triage vital signs. Const: Morbidly obese female in no acute distress Eyes: PERRL, EOM intact, no conjunctival injection, vision grossly normal HENT: Neck supple without meningismus , Moist mucous membranes, no pharyengeal swelling or exudate CV: Regular rate and rhythm, Warm, well-perfused extremities. Chest non tender RESP: Lungs clear bilaterally, Unlabored respiratory effort GI: soft, non-tender, non-distended, no masses : MSK: No gross deformities appreciated Back: Non tender, no pain with ROM Skin: W bilateral lower extremities are edematous and mildly erythematous. Right foot is wrapped and patient adamantly states that we are not allowed to unwrap it to look at it. Neuro: Alert and oriented x4, GCS 15 , clinical services director II-XII grossly intact. Sensation and motor function of extremities grossly intact. Psych: Appropriate mood and affect. I have reviewed and confirmed nurses/medics notes for patient past, social and family history. Portions of this note were dictated by speech recognition. An attempt at proof reading was made to minimize errors. Minor errors in police chief deputy may be present. HISTORY OF PRESENTING ILLNESS SALAZAR is a 70 year old Female and was seen by me at 02-Feb-2021 18:13 for a chief complaint of foot pain/injury (Pt brought [facility] from [facility] for complaint of "gangrene" to right foot. Nurse states starting in last 48 hours.)(1). Triage Information: Most recent Vital Sign Value Date Temp (F): 100 02-02-2021 18:17 Temp (C): 37.7 02-02-2021 18:17 Heart Rate (beats/min): 93 02-02-2021 18:17 Respirations (breaths/min): 20 02-02-2021 18:17 SpO2 (%): 93 02-02-2021 18:17 BP Systolic (mm Hg): 137 02-02-2021 18:17 BP Diastolic (mm Hg): 63 02-02-2021 18:17 PAST MEDICAL HISTORY ALLERGIES/INTOLERANCES: No Known Allergies HEALTH HISTORY: No documented data. OUTPATIENT MEDICATIONS: Home Medications Review Status for Reconciliation: Complete Med Status: Patient Currently Takes Medications Drug Name: ascorbic acid 500 mg oral tablet Instructions: 1 tab(s) orally once a day Drug Name: Multi Vitamin+ Instructions: 1 tab(s) orally once a day Drug Name: aspirin 81 mg oral delayed release tablet Instructions: 1 tab(s) orally once a day Drug Name: gabapentin 300 mg oral capsule Instructions: 1 cap(s) orally 2 times a day Drug Name: magnesium oxide 400 mg (241.3 mg elemental magnesium) oral tablet Instructions: 1 tab(s) orally once a day Drug Name: donepezil 5 mg oral tablet Instructions: 1 tab(s) orally once a day (at bedtime) Drug Name: lidocaine 4% patch Instructions: Apply topically to affected area once a day (apply 1 to left thigh and 1 to right hip) Drug Name: Eliquis 5 mg oral tablet Instructions: 1 tab(s) orally 2 times a day Drug Name: metFORMIN 1000 mg oral tablet Instructions: 1 tab(s) orally 2 times a day Drug Name: oxyCODONE 5 mg oral tablet Instructions: 1 tab(s) orally every 6 hours, As Needed pain Drug Name: OxyCONTIN 10 mg oral tablet, extended release Instructions: 1 tab(s) orally 2 times a day Drug Name: baclofen 10 mg oral tablet Instructions: 2 tab(s) orally 3 times a day Drug Name: Bumex 0.5 mg oral tablet Instructions: 1 tab(s) orally 2 times a day Drug Name: insulin lispro 100 units/mL subcutaneous solution Instructions: subcutaneous 3 times a day (before meals) Drug Name: Lantus 100 units/mL subcutaneous solution Instructions: unit(s) subcutaneous 2 times a day. 55 units in AM and 35 units in PM Drug Name: Lipitor 20 mg oral tablet Instructions: 1 tab(s) orally once a day Drug Name: nitrofurantoin macrocrystals 50 mg oral capsule Instructions: 1 cap(s) orally once a day (at bedtime) Drug Name: Senna Plus 50 mg-8.6 mg oral tablet Instructions: 2 tab(s) orally 2 times a day Drug Name: Tylenol 500 mg oral tablet Instructions: 2 tab(s) orally 3 times a day Drug Name: Zofran 4 mg oral tablet Instructions: 1 tab(s) orally every 8 hours, As Needed SIGNIFICANT EVENTS: Past Medical History Description:disorder of bone dens (more content not included)... Normal [facility] Risk Screen - Adult Emergenc yon 02-02-2021 Risk Screen - Adult Emergency Preferred Language: Preferred Language: Preferred Language for Discussing Health Care (patient/designee)[place] Advanced Directives: Advance Directive/DNRyes Advance Directive typeDNR- CCA DNR-CCA Availabilityplaced on chart DNR-CCA Placed on [id number] Family Violence Adult: Abuse Screen: Are you or have you been threatened or abused physically, emotionally, or sexually by anyoneno Learning Assessment (Patient): Learning Assessment (Patient): Patient is Able to be Assessed for Learningyes Factors Influencing Readiness to Learnacuteness of illness Factors that Impact Ability to Learnnone Devices/Methods Used to Communicatenone Learning Preferencesaudio Cultural Considerationsnone Developmental Considerationsnone Gnosticism Considerationsnone Learning Assessment (Other Learner): Learning Assessment (Other Learner): Other learner availableno Pressure Injury/TB/Substance: Pressure Injury: Pressure Injury Present on Admissionno Do you have a coughno Smoking Statusnever smoker Alcohol Usedenies Drug Usedenies Drug 2 Usedenies Admission Risk Screen: Significant IndicatorsComplete CAGE: CAGE: Is this an injured patient at a Trauma Center ([facility]/[place]/Ashu/Quan/Cynthia Gonzalez/Gregory): no Electronic Signatures: Neelima Real (RN) (Signed 02-Feb-2021 18:22) Authored: Preferred Language, Advanced Directives, Family Violence Adult, Learning Assessment (Patient), Learning Assessment (Other Learner), Pressure Injury/TB/Substance, Pressure Injury, CAGE Last Updated: 02-Feb-2021 18:22 by Neelima Real (RN) Normal [facility] SEDIMENTATION RATE, ERYTHROC YTEon 02-02-2021 SEDIMENTATION RATE, ERYTHROCYTE 79 mm/h High 0 - 30 [facility] Comment on above: Performed By: #### B #### [facility] [address] [place] [address] Triage - EDon 02-02-2021 Triage - ED Quick Triage: The patient and/or guardian verbally acknowledges placement for services into the following (when Urgent Care Service hours are operating):emergency department Chart Review: PRIMARY ASSESSMENT SALAZAR COYLE's primary assessment is Within Defined Limits. The airway is open and patent. Breathing spontaneous and unlabored with clear breath sounds bilaterally. Circulation is normal with good peripheral pulses. Skin is warm and dry and color is normal for race. ARRIVAL INFORMATION Means of Arrival: stretcher Mode of Arrival: ambulance Agency: [facility] Name: [facility]rival From: home Accompanied By: self Language: Spoken Language Preferred: [place] Korean Reading Language Preferred: [place] Machinist 2Nd Shift Requested: no sash clamp operator was requested MDRO: History of MDRO: no Present on Arrival: Device Present on Arrival to ED: no Pressure Ulcer Present on Arrival to ED: no CHIEF COMPLAINT SALAZAR COYLE is a Female patient with a chief complaint of foot pain/injury (Pt brought by [facility] from [facility] for complaint of "gangrene" to right foot. Nurse states starting in last 48 hours.). Triage Date/Time: 02-Feb-2021 18:17 KAYLYN: 3 Pain Rating (0-10): 10 = Severe Pain location: Right foot Vital Signs: Temperature: 100.0F ( 37.7C) taken forehead Blood Pressure: 137/63 Mean: Heart Rate: 93 Respiratory Rate: 20 Pulse Oximetry: 93% on room air, no respiratory support. Height: 5 feet 7.00 inches. 170.1 CM Weight: 431.0 pounds. Calculated 195.5 kg. Calculated BMI (kg/m2): 67.567 Calculated BSA (m2) 3.04 Varinder Coma Scale: Best Eye Response: (E4) spontaneous Best Motor Response: (M6) obeys commands Best Verbal Response: (V5) oriented Varinder Score: 15 Cough lasting greater than 3 weeks: no Allergies: no Mask applied: yes Patient has homicidal thoughts: no Symptom Notes: . Symptoms Are POSITIVE For: pain (describe). Symptoms Are Negative For: abrasion, bleeding, bruising, deformity, difficulty bending, difficulty walking, numbness, decreased ROM and tingling. Risk Screens Suicide Risk Screen In the Past Month: Have you wished you were or wished you could go to sleep and not wake up no In the Past Month: Have you had any actual thoughts of killing yourself no In Your Lifetime: Have you ever done anything, started to do anything, or prepared to do anything to end your life no Luna Fall Scale Screening Has the patient fallen before (or is the patient in the ED as a result of a fall) has not had a fall Does the patient have an impaired gait does not have impaired gait Is the patient cognitively impaired not cognitively impaired Interventions: Luna Fall Interventions: LOW INTERVENTIONS: *patient oriented to surroundings and call system, * patient/family falls education completed and documented, *patients fall status communicated during bedside handoff, *whiteboard updated, *mode of toileting discussed with patient, *bed in low position with brakes locked, *call light in reach, * non-skid footwear PAST MEDICAL HISTORY Immunization History: Last Known Tetanus Immunization: Unknown TRAVEL HISTORY Travel History Coronavirus Screening: no exposure or symptoms Travel Exposure History: NO travel to International locations in the past 30 days PAIN Pain Scale Used: HARI Pain Rating (0-10): 10 = Severe Past Medical History: Past Medical History Reviewedyes Electronic Signatures: Neelima Real (RN) (Signed 02-Feb-2021 18:20) Entered: Risk Screens, Pain, Arrival, ABCD, Immunizations, Travel History, Chart Review, Scores, Past Medical History Authored: Quick Triage, Risk Screens, Pain, Arrival, ABCD, Immunizations, Travel History, Chart Review, Scores, Past Medical History Last Updated: 02-Feb-2021 18:20 by Neelima Real (RN) [facility] Office Visit (Internal Medic ine)on 05-25-2020 Follow-up visit Patient Discussion/S chalo Possibly patient has developed hydradenitis - trial a short course of diflucan and metadona. HX of TIA DM2- BS increasing. Adjust accordingly. Chronic R hip and R knee pain- consider orthopedic options to see if anyone would consider R knee replacement or R hip replacement. Continue with palliative care for pain management. Unsure as to why is no longer having the pain in that leg. Pt wants to see Dr. Interiano at [facility] CHF- EF was 60-65% + mitral calcification. Otherwise no other findings. pt is on bumex on 0.5mg po daily eczema- trial triamcinolone cream 0.25% daily to the face x 7 days. Chronic pain- patient is on oxycontin and oxycodone, lidocaine patch, gabapentin, and baclofen. She is receiving Palliative Care through Dr. Barbour.. Patient is still a full code. THis has been discussed with her many times and she wishes to remain a full code. Okay to trial increase baclofen to 15mg po TID due to increased leg spams. Candidiasis skin folds- nystatin powder and use pillow cases in between folds. Leg wounds- continue to follow wound nurse Hypoalbuminemia- continue with the prostat. Consider increase meats with meals. AFib- continue to monitor HR. Pt is on coumadin but patient would like to be changed to eliquis. Okay to start eliquis 5mg po BID and stop the coumadin. Goal is to rehab and improve quality of life. Goal overall would be to loose weight and get the patient a scooter to drive around in. Possibly be able to have knee/hip replacement. She is a poor overall health but patient seems to responding well to medication changes and compliant with the CPAP. I am hopeful to improve her overall medical status. Monitor skin closely every day. Pt is very prone to skin break down/infection History of Present Illness This is a 68 year old female with PMHX of DM2, HTN, morbid obesity, Systolic and diastolic CHF, Afib, hx of TIA. The patient is a transfer from another facility due to her morbid obesity. Patient was at [facility] for about 2 weeks and then sent to ER on 08/05/19. She was then transferred to [facility] and discharged on 08/14/19. She was dx with cellulitis, cellulites of lower extremity, CHF, Chronic resp failure, DM2, morbid obesity, pafib, bacteremia. Today, patient is doing ok. She is having worsening leg wounds and staff concerned about the draining fluid from the legs. . Review of Systems Denies fever, chills, malaise. no nausea, vomiting, no diarrhea, constipation. Denies dysuria, hematuria, difficulty with urination + jose Denies chest pain, palpitations. Denies cough, wheezing, shortness of breath. Denies depression, anxiety, difficulty sleeping. + chronic pain. Physical Exam Orientation: comfortable, no distress Skin: warm, dry. skin folds+ moisture no infection present. + eczema around the face HEENT: Normocephalic, atraumatic. Eyes no evidence of icterus or conjunctivitis. PERRLA. Nose is clear. Throat no erythema. Neck: Supple. Lungs: Clear to auscultation but very diminished. . Cardiovascular: heart regular rate and rhythm. No murmurs, rubs, or gallops. No S3 or S4. Abdomen: soft, nontender. No guarding or rigidity. Bowel sounds x 4. Extremities: + 1-2 pitting edema. chronic wounds to R leg. new yellow/green drainage from the anterior and posterior legs. labs 11/06/19 hgba1c 8.5 07/28/19 sodium 145 pot 4.2 chloride 103 bicarb 36 bun 24. creatine 0.8 glucose 162 Signatures Electronically signed by : Patricia King PA-C; May 24 2020 10:12PM EST (Author) Electronically signed by : Cruz Singleton MD; May 25 2020 4:51PM EST Normal [employer] BASIC METABOLIC PANELon 02- Anion gap [Moles/Vol] 11 mmol/L Normal 10 - 20 [facility] Comment on above: Performed By: #### P HOS #### [address] [address] Calcium [Mass/Vol] 8.2 mg/dL Low 8.6 - 10.3 [facility] Comment on above: Performed By: #### P HOS #### [address] [address] Chloride [Moles/Vol] 103 mmol/L Normal 98 - 107 [facility] Comment on above: Performed By: #### P HOS #### [address] [address] Creatinine [Mass/Vol] 0.68 mg/dL Normal 0.50 - 1.05 [facility] Comment on above: Performed By: #### P HOS #### [address] [address] GFR- AM. >60 Normal >60 [facility] Comment on above: Result Comment: CALC ULATIONS OF ESTIMATED GFR ARE PERFORMED USING THE MDRD STUDY EQUATION FOR THE IDMS-TRACEABLE CREATININE METHODS. CLIN CHEM 2007;53:766-72 Performed By: #### P HOS #### [address] [address] GFR-NON AM. >60 Normal >60 [facility] Comment on above: Performed By: #### P HOS #### [address] [address] Glucose [Mass/Vol] 311 mg/dL High 74 - 99 [facility] Comment on above: Performed By: #### P HOS #### [address] [address] HCO3 (Bld) [Moles/Vol] 28 mmol/L Normal 21 - 32 [facility] Comment on above: Performed By: #### P HOS #### [address] [address] Potassium [Moles/Vol] 4.3 mmol/L Normal 3.5 - 5.3 [facility] Comment on above: Result Comment: MILD HEMOLYSIS DETECTED. The result may be falsely elevated due to hemolysis or other interferents. Clinical correlation is recommended. Repeat testing may be considered. Performed By: #### P HOS #### [address] [address] Sodium [Moles/Vol] 138 mmol/L Normal 136 - 145 [facility] Comment on above: Performed By: #### P HOS #### [place] [id number] Urea nitrogen [Mass/Vol] 16 mg/dL Normal 6 - 23 [facility] Comment on above: Performed By: #### P HOS #### [place] [id number] CBC AND DIFFERENTIALon 05-15 DIFFERENTIAL SEE MANUAL DIFF Normal [facility] Comment on above: Performed By: #### B MP #### [address] [address] Erythrocyte distribution width (RBC) [Ratio] 16.3 % High 11.5 - 14.5 [facility] Comment on above: Performed By: #### B MP #### [address] [address] Hematocrit (Bld) [Volume fraction] 34.5 % Low 36.0 - 46.0 [facility] Comment on above: Performed By: #### B MP #### [address] [address] Hemoglobin (Bld) [Mass/Vol] 11.1 g/dL Low 12.0 - 16.0 [facility] Comment on above: Performed By: #### B MP #### [address] [address] MCHC (RBC) [Mass/Vol] 32.1 g/dL Normal 32.0 - 36.0 [facility] Comment on above: Performed By: #### B MP #### [address] [address] MCV (RBC) [Entitic vol] 101 fL High 80 - 100 [facility] Comment on above: Performed By: #### B MP #### [address] [address] NUCLEATED RBC 1.0 /100 WBC Normal [facility] Comment on above: Performed By: #### B MP #### [address] [address] Platelets (Bld) [#/Vol] 204 10*3/uL Normal 150 - 450 [facility] Comment on above: Performed By: #### B MP #### [address] [address] RBC 3.41 x10E12/L Low 4.00 - 5.20 [facility] Comment on above: Performed By: #### B MP #### [address] [address] WBC (Bld) [#/Vol] 6.0 10*3/uL Normal 4.4 - 11.3 [facility] Comment on above: Performed By: #### B MP #### [address] [address] MANUAL DIFFERENTIALon 2020 % BAND NEUTROPHIL 4.0 % Normal 0.0 - 5.0 [facility] Comment on above: Performed By: #### C BCDF #### [address] [address] % BASOPHIL 0.0 % Normal 0.0 - 2.0 [facility] Comment on above: Performed By: #### C BCDF #### [address] [address] % EOSINOPHIL 11.0 % Normal 0.0 - 6.0 [facility] Comment on above: Performed By: #### C BCDF #### [address] [address] % LYMPHOCYTE 24.0 % Normal 13.0 - 44.0 [facility] Comment on above: Performed By: #### C BCDF #### [address] [address] % MONOCYTE 3.0 % Normal 2.0 - 10.0 [facility] Comment on above: Performed By: #### C BCDF #### [address] [address] % SEG NEUTROPHIL 58.0 % Normal 40.0 - 80.0 [facility] Comment on above: Result Comment: Perc ent differential counts (%) should be interpreted in the context of the absolute cell counts (cells/L). Performed By: #### C BCDF #### [address] [address] ANC 3.72 x10E9/L Normal 1.60 - 5.50 [facility] Comment on above: Performed By: #### C BCDF #### [address] [address] BAND NEUTROPHIL 0.24 x10E9/L Normal 0.00 - 0.50 [facility] Comment on above: Performed By: #### C BCDF #### [address] [address] BASOPHIL 0.00 x10E9/L Normal 0.00 - 0.10 [facility] Comment on above: Performed By: #### C BCDF #### [address] [address] EOSINOPHIL 0.66 x10E9/L High 0.00 - 0.40 [facility] Comment on above: Performed By: #### C BCDF #### [address] [address] LYMPHOCYTE 1.44 x10E9/L Normal 0.80 - 3.00 [facility] Comment on above: Performed By: #### C BCDF #### [address] [address] MONOCYTE 0.18 x10E9/L Normal 0.05 - 0.80 [facility] Comment on above: Performed By: #### C BCDF #### [place] [address] [place] [address] SEG NEUTROPHIL 3.48 x10E9/L Normal 1.60 - 5.00 [facility] Comment on above: Performed By: #### C BCDF #### [address] [address] RED CELL MORPHOLOGYon 2020 RBC morphology finding Nom (Bld) NORMAL Normal [facility] Comment on above: Performed By: #### C BCDF #### [address] [address] Office Visit (Internal Medic ine)on 03-18-2020 Follow-up visit Patient Discussion/S chalo AMS- patient has a hx of TIA. I suspect she had another TIA hyperkalemia- etiology is unclear. Possible advancing disease of her diabetic nephropathy. Lisinopril stopped and kayexalate given. Repeat potassium levels. checking cortisol and ACTH levels as well. UTI- ecoli wit ESBL > 100,000 pt was on macrobid and switch to monurol. Also on ertapenem for provenditia x 7 day. DM2- added basaglar in the AM. increase to 10 units in AM and continue with the short acting q AC SS. Chronic R hip and R knee pain- consider orthopedic options to see if anyone would consider R knee replacement or R hip replacement. Continue with palliative care for pain management. Unsure as to why is no longer having the pain in that leg. Unfortunately, I am unable to get a x ray of the right hip due to her weight. Consider sending out for an x ray or CT scan. nausea/vomiting- continue prn zofran. D CHF- EF was 60-65% + mitral calcification. Otherwise no other findings. pt is on bumex on 0.5mg po daily eczema- trial triamcinolone cream 0.25% daily to the face x 7 days. Chronic pain- patient is on oxycontin and oxycodone, lidocaine patch, gabapentin, and baclofen. She is receiving Palliative Care through Dr. Barbour.. Patient is still a full code. THis has been discussed with her many times and she wishes to remain a full code. Okay to trial increase baclofen to 15mg po TID due to increased leg spams. Candidiasis skin folds- nystatin powder and use pillow cases in between folds. Leg wounds- continue to follow wound nurse Hypoalbuminemia- continue with the prostat. Consider increase meats with meals. AFib- continue to monitor HR. Pt is on coumadin but patient would like to be changed to eliquis. Okay to start eliquis 5mg po BID and stop the coumadin. Goal is to rehab and improve quality of life. Goal overall would be to loose weight and get the patient a scooter to drive around in. Possibly be able to have knee/hip replacement. She is a poor overall health but patient seems to responding well to medication changes and compliant with the CPAP. I am hopeful to improve her overall medical status. Monitor skin closely every day. Pt is very prone to skin break down/infection History of Present Illness This is a 68 year old female with PMHX of DM2, HTN, morbid obesity, Systolic and diastolic CHF, Afib, hx of TIA. The patient is a transfer from another facility due to her morbid obesity. Patient was at [facility] for about 2 weeks and then sent to ER on 08/05/19. She was then transferred to [facility] and discharged on 08/14/19. She was dx with cellulitis, cellulites of lower extremity, CHF, Chronic resp failure, DM2, morbid obesity, pafib, bacteremia. Today, patient is doing ok. She was sent to the ED yesterday for AMS. Staff reports that her eyes were rolling in the back of her head and increased confusion/lethargy. At the ED, she had her IV replaced and labs but no other significant findings present. Staff also concerned that she used to have severe pain in the right leg that she no longer seems to have that pain anymore. Review of Systems Denies fever, chills, malaise. + nausea, vomiting, no diarrhea, constipation. Denies dysuria, hematuria, difficulty with urination + jose Denies chest pain, palpitations. Denies cough, wheezing, shortness of breath. Denies depression, anxiety, difficulty sleeping. + chronic pain. Physical Exam 118/70 97.9 20 85 94% RA weight 410lbs Orientation: comfortable, no distress Skin: warm, dry. skin folds+ moisture no infection present. + eczema around the face HEENT: Normocephalic, atraumatic. Eyes no evidence of icterus or conjunctivitis. PERRLA. Nose is clear. Throat no erythema. Neck: Supple. Lungs: Clear to auscultation but very diminished. . Cardiovascular: heart regular rate and rhythm. No murmurs, rubs, or gallops. No S3 or S4. Abdomen: soft, nontender. No guarding or rigidity. Bowel sounds x 4. Extremities: + 1-2 pitting edema. chronic wounds to R leg. + abnormal position of the R leg. patient consistently lays with the knee bent due to the severe OA typically we are unable to move/touch the leg without severe pain but oddly this has changed. We can move the leg without symptoms. Neuro: Intact and symmetrical. No gross motor deficits. labs 11/06/19 hgba1c 8.5 07/28/19 sodium 145 pot 4.2 chloride 103 bicarb 36 bun 24. creatine 0.8 glucose 162 Results/Data Xray Chest 1 [id number] 10:14AMNon Ambulatory, Provider Ordering Provider: RAMONE HASTINGS [id number] Test NameResultFlagReference Xray Chest 1 View(Report) Interpreted by: KIM 03/17/20 10:38 Patient Name: SALAZAR COYLE STUDY: CHEST 1 VIEW; 03/17/2020 10:14 am INDICATION: cough. COMPARISON: 08/06/2019 ACCESSION NUMBER(S): [id number] ORDERING CLINICIAN: RAMONE HASTINGS FINDINGS: AP portable view of the chest is obtained. Limited exam due to portable nature. Magnified cardiac silhouette. No infiltrates, effusions or pneumothor (more content not included)... Normal [facility] CBC AND DIFFERENTIALon 03-17 Basophils (Bld) [#/Vol] 0.00 10*3/uL Normal 0.00 - 0.10 [facility] Comment on above: Performed By: #### P HOS #### [address] [address] Basophils/100 WBC (Bld) 0.3 % Normal 0.0 - 2.0 [facility] Comment on above: Performed By: #### P HOS #### [address] [address] Eosinophils (Bld) [#/Vol] 0.30 10*3/uL Normal 0.00 - 0.40 [facility] Comment on above: Performed By: #### P HOS #### [address] [address] Eosinophils/100 WBC (Bld) 5.4 % Normal 0.0 - 6.0 [facility] Comment on above: Performed By: #### P HOS #### [place] [id number] Erythrocyte distribution width (RBC) [Ratio] 15.7 % High 11.5 - 14.5 [facility] Comment on above: Performed By: #### P HOS #### [place] [id number] Hematocrit (Bld) [Volume fraction] 35.9 % Low 36.0 - 46.0 [facility] Comment on above: Performed By: #### P HOS #### [place] [id number] Hemoglobin (Bld) [Mass/Vol] 11.4 g/dL Low 12.0 - 16.0 [facility] Comment on above: Performed By: #### P HOS #### [place] [id number] Lymphocytes (Bld) [#/Vol] 1.30 10*3/uL Normal 0.80 - 3.00 [facility] Comment on above: Performed By: #### P HOS #### [address] [address] Lymphocytes/100 WBC (Bld) 26.2 % Normal 13.0 - 44.0 [facility] Comment on above: Performed By: #### P HOS #### [address] [address] MCHC (RBC) [Mass/Vol] 31.9 g/dL Low 32.0 - 36.0 [facility] Comment on above: Performed By: #### P HOS #### [address] [address] MCV (RBC) [Entitic vol] 103 fL High 80 - 100 [facility] Comment on above: Performed By: #### P HOS #### [address] [address] Monocytes (Bld) [#/Vol] 0.40 10*3/uL Normal 0.05 - 0.80 [facility] Comment on above: Performed By: #### P HOS #### [address] [address] Monocytes/100 WBC (Bld) 7.1 % Normal 2.0 - 10.0 [facility] Comment on above: Performed By: #### P HOS #### [address] [address] Neutrophils (Bld) [#/Vol] 3.00 10*3/uL Normal 1.60 - 5.50 [facility] Comment on above: Result Comment: Perc ent differential counts (%) should be interpreted in the context of the absolute cell counts (cells/L). Performed By: #### P HOS #### [address] [address] Neutrophils/100 WBC (Bld) 61.0 % Normal 40.0 - 80.0 [facility] Comment on above: Performed By: #### P HOS #### [address] [address] NUCLEATED RBC 0.2 /100 WBC Normal [facility] Comment on above: Performed By: #### P HOS #### [address] [address] Platelets (Bld) [#/Vol] 152 10*3/uL Normal 150 - 450 [facility] Comment on above: Performed By: #### P HOS #### [address] [address] RBC 3.47 x10E12/L Low 4.00 - 5.20 [facility] Comment on above: Performed By: #### P HOS #### [address] [address] WBC (Bld) [#/Vol] 5.0 10*3/uL Normal 4.4 - 11.3 [facility] Comment on above: Performed By: #### P HOS #### [address] [address] CHEST 1 VIEWon 03-17-2020 CHEST 1 VIEW Patient Name: SALAZAR COYLE STUDY: CHEST 1 VIEW; 03/17/2020 10:14 am INDICATION: cough. COMPARISON: 08/06/2019 ACCESSION NUMBER(S): [id number] ORDERING CLINICIAN: RAMONE HASTINGS FINDINGS: AP portable view of the chest is obtained. Limited exam due to portable nature. Magnified cardiac silhouette. No infiltrates, effusions or pneumothorax. IMPRESSION: 1. No evidence of acute cardiopulmonary process. Electronically signed by: JAYSON ALVAREZ MD Normal [facility] COMPREHENSIVE PANELon 2019 Albumin [Mass/Vol] 3.4 g/dL Normal 3.4 - 5.0 [facility] Comment on above: Performed By: #### P HOS #### [address] [address] ALP [Catalytic activity/Vol] 59 U/L Normal 33 - 136 [facility] Comment on above: Performed By: #### P HOS #### [address] [address] ALT [Catalytic activity/Vol] 8 U/L Normal 7 - 45 [facility] Comment on above: Result Comment: Corrina ents treated with Sulfasalazine may generate falsely decreased results for ALT. Performed By: #### P HOS #### [address] [address] Anion gap [Moles/Vol] 11 mmol/L Normal 10 - 20 [facility] Comment on above: Performed By: #### P HOS #### [address] [address] AST [Catalytic activity/Vol] 12 U/L Normal 9 - 39 [facility] Comment on above: Performed By: #### P HOS #### [address] [address] Bilirubin [Mass/Vol] 0.4 mg/dL Normal 0.0 - 1.2 [facility] Comment on above: Performed By: #### P HOS #### [address] [address] Calcium [Mass/Vol] 8.9 mg/dL Normal 8.6 - 10.3 [facility] Comment on above: Performed By: #### P HOS #### [address] [address] Chloride [Moles/Vol] 111 mmol/L High 98 - 107 [facility] Comment on above: Performed By: #### P HOS #### [address] [address] Creatinine [Mass/Vol] 0.68 mg/dL Normal 0.50 - 1.05 [facility] Comment on above: Performed By: #### P HOS #### [address] [address] GFR- AM. >60 Normal >60 [facility] Comment on above: Result Comment: CALC ULATIONS OF ESTIMATED GFR ARE PERFORMED USING THE MDRD STUDY EQUATION FOR THE IDMS-TRACEABLE CREATININE METHODS. CLIN CHEM 2007;53:766-72 Performed By: #### P HOS #### [address] [address] GFR-NON AM. >60 Normal >60 [facility] Comment on above: Performed By: #### P HOS #### [address] [address] Glucose [Mass/Vol] 197 mg/dL High 74 - 99 [facility] Comment on above: Performed By: #### P HOS #### [address] [address] HCO3 (Bld) [Moles/Vol] 25 mmol/L Normal 21 - 32 [facility] Comment on above: Performed By: #### P HOS #### [address] [address] Potassium [Moles/Vol] 5.4 mmol/L High 3.5 - 5.3 [facility] Comment on above: Performed By: #### P HOS #### [address] [address] Protein [Mass/Vol] 6.0 g/dL Low 6.4 - 8.2 [facility] Comment on above: Performed By: #### P HOS #### [address] [address] Sodium [Moles/Vol] 142 mmol/L Normal 136 - 145 [facility] Comment on above: Performed By: #### P HOS #### [address] [address] Urea nitrogen [Mass/Vol] 32 mg/dL High 6 - 23 [facility] Comment on above: Performed By: #### P HOS #### [address] [address] LIPASEon 03-17-2020 Lipase [Catalytic activity/Vol] 21 U/L Normal 9 - 82 [facility] Comment on above: Result Comment: Maritza puncture immediately after or during the administration of Metamizole may lead to falsely low results. Testing should be performed immediately prior to Metamizole dosing. J-bwefnb-d-benzoquinone imine (metabolite of Acetaminophen) will generate erroneously low results in samples for patients that have taken toxic doses of acetaminophen. Performed By: #### P HOS #### [address] [address] Provider Note - ED v2on 03-02 Provider Note - ED v2 Provider Note - ED v2: Chart Review: ED NOTES ED NOTES: ====HPI==== Patient presents to the emergency department today for IV line placement. She has ESBL UTI and requires treatment. She has had borderline hyperkalemia. She has had no fevers chills vomiting diarrhea sore throat cough or any other complaints on full review of systems. She denies any acute issues. Character: Severity: Mild to moderate Exacerbated by: Nothing Improved by: Nothing Recently seen by: Denies ====Review of Systems==== 10 point system review is negative ====Physical Exam==== Constitutional/General: Alert and oriented x3, well appearing, nontoxic, and in NAD. Head: Normocephalic and atraumatic. Eyes: PERRL, EOMI, conjunctive normal, sclera nonicteric, subconjunctival layer is pink. Mouth: Oropharynx clear, handling secretions, no trismus, no asymmetry of the posterior oropharynx or uvular edema Neck: Supple, full ROM, non tender to palpation in the midline, no stridor, no crepitus, no meningeal signs. Trachea at midline. Respiratory: Lungs clear to auscultation bilaterally, no wheezes, rales, or rhonchi, not in respiratory distress. Cardiovascular: Regular rate, regular rhythm, no murmurs, gallops, or rubs, 2+ distal pulses. Chest: normal chest wall movement GI: Abdomen soft, nontender, nondistended, + BS, no organomegaly, no palpable masses, no rebound, guarding, or rigidity. Musculoskeletal: Moves all extremities x4, warm and well perfused, no clubbing, cyanosis, or edema, cap refill <3 seconds Integument: Skin warm and dry, no rashes. Lymphatic: No lymphadenopathy noted. Neurologic: GCS 15, no focal deficits, symmetric strength 5/5 in the upper and lower extremities bilaterally. Psychiatric: Normal affect. ====ED Course and Medical Decision Making==== She is obese but has a benign exam. She should do well as an outpatient. We are able to lining her right upper extremity under ultrasound guidance as performed by my physician assistant administrator and she was given a dose of meropenem. I have paged Dr. Seth notify him. All her questions were answered. She felt comfortable with the plan. Portions of this note were dictated by speech recognition. An attempt at proof reading was made to minimize errors. Minor errors in police chief deputy may be present. Please call if questions.. HISTORY OF PRESENTING ILLNESS SALAZAR is a 69 year old Female and was seen by me at 17-Mar-2020 09:48 for a chief complaint of altered mental status (brought in from [facility] for AMS, pt was ok during the night but per nurse was not following commands this morning, they were also unable to get an IV and draw labs this am. Potassium was 6.1 2 days ago. upon arrival pt alert oriented x 3, states she was just tired this am. States they couldn't get that thing (clarified as IV) in my arm so they sent me here" pt is currently being treated for UTI has ESBL in urine and on Ertapenem 1 gram.)(1). Triage Information: Most recent Vital Sign Value Date Temp (F): 98.1 03-17-2020 09:41 Temp (C): 36.7 03-17-2020 09:41 Heart Rate (beats/min): 74 03-17-2020 09:41 Respirations (breaths/min): 18 03-17-2020 09:41 SpO2 (%): 99 03-17-2020 09:41 BP Systolic (mm Hg): 179 03-17-2020 09:41 BP Diastolic (mm Hg): 64 03-17-2020 09:41 PAST MEDICAL HISTORY ATTESTATION: I have reviewed and confirmed nurse's/medic's notes for patient's medications, allergies, and medical, surgical, family and social history ALLERGIES/INTOLERANCES: No Known Allergies HEALTH HISTORY: No documented data. OUTPATIENT MEDICATIONS: Home Medications Review Status for Reconciliation: Incomplete Med Status: Incomplete Medication History Drug Name: ascorbic acid 500 mg oral tablet Instructions: 1 tab(s) orally once a day Drug Name: Multi Vitamin+ Instructions: 1 tab(s) orally once a day Drug Name: acetaminophen 325 mg oral tablet Instructions: 3 tab(s) orally every 8 hours Drug Name: aspirin 81 mg oral delayed release tablet Instructions: 1 tab(s) orally once a day Drug Name: lisinopril 10 mg oral tablet Instructions: 1 tab(s) orally once a day Drug Name: gabapentin 300 mg oral capsule Instructions: 1 cap(s) orally 2 times a day Drug Name: citalopram 10 mg oral tablet Instructions: 1 tab(s) orally once a day Drug Name: polyethylene glycol 3350 oral powder for reconstitution Instructions: 17 gram(s) orally once a day, As needed, Constipation Drug Name: magnesium oxide 400 mg (241.3 mg elemental magnesium) oral tablet Instructions: 1 tab(s) orally once a day Drug Name: baclofen 10 mg oral tablet Instructions: 1 tab(s) orally 3 times a day Drug Name: furosemide 40 mg oral tablet Instructions: 1 tab(s) orally 2 times a day Drug Name: Coumadin 5 mg oral tablet Instructions: 1 tab(s) orally once a day adjusted for goal INR 2-3 Drug Name: methadone 10 mg oral tablet Instruc (more content not included)... Normal [facility] Risk Screen - Adult Emergenc yon 03-17-2020 Risk Screen - Adult Emergency Preferred Language: Preferred Language: Preferred Language for Discussing Health Care (patient/designee)[place] Advanced Directives: Advance Directive/DNRno Family Violence Adult: Abuse Screen: Are you or have you been threatened or abused physically, emotionally, or sexually by anyoneno Learning Assessment (Patient): Learning Assessment (Patient): Patient is Able to be Assessed for Learningyes Factors Influencing Readiness to Learnacuteness of illness Factors that Impact Ability to Learnnone Devices/Methods Used to Communicatenone Learning Preferencesaudio Cultural Considerationsnone Developmental Considerationsnone Gnosticism Considerationsnone Learning Assessment (Other Learner): Learning Assessment (Other Learner): Other learner availableno Pressure Injury/TB/Substance: Pressure Injury: Pressure Injury Present on Admissionno Do you have a coughno Substance Use Current or Former Historynever: Cigarette/Tobacco, e-Cigarette/Vaping, Alcohol, Street Drugs Admission Risk Screen: Significant IndicatorsComplete CAGE: CAGE: Is this an injured patient at a Trauma Center ([facility]/[place]/[facility]/[place]): no Electronic Signatures: Jeferson Martinez (MATHEUS) (Signed 17-Mar-2020 09:49) Authored: Preferred Language, Advanced Directives, Family Violence Adult, Learning Assessment (Patient), Learning Assessment (Other Learner), Pressure Injury/TB/Substance, Pressure Injury, CAGE Last Updated: 17-Mar-2020 09:49 by Jeferson Martinez (MATHEUS) Normal [facility] TROPONIN Ion 03-17-2020 Troponin I.cardiac [Mass/Vol] ng/mL Normal 0.00 - 0.03 [facility] Comment on above: Result Comment: LESS THAN 0.04 NG/ML: NEGATIVE REPEAT TESTING IN THREE TO SIX HOURS IF CLINICALLY INDICATED. 0.04 - 0.5 NG/ML: CONSISTENT WITH POSSIBLE CARDIAC DAMAGE AND POSSIBLE INCREASED CLINICAL RISK. SERIAL MEASUREMENTS MAY HELP ASSESS EXTENT OF MYOCARDIAL DAMAGE. >0.5 NG/ML: CONSISTENT WITH CARDIAC DAMAGE, INCREASED CLINICAL RISK AND MYOCARDIAL INFARCTION. SERIAL MEASUREMENTS MAY HELP ASSESS EXTENT OF MYOCARDIAL DAMAGE. . Note: Troponin I testing is performed using different testing methodology at [facility] than at other [facility]. Direct result comparisons should only be made within the same method. Performed By: #### [facility] #### [place] [address] Triage - EDon 03-17-2020 Triage - ED Chart Review: ARRIVAL INFORMATION Mode of Arrival: ambulance [facility] Name: [facility] CHIEF COMPLAINT SALAZAR COYLE is a Female patient with a chief complaint of altered mental status (brought in from [facility] for AMS, pt was ok during the night but per nurse was not following commands this morning, they were also unable to get an IV and draw labs this am. Potassium was 6.1 2 days ago. upon arrival pt alert oriented x 3, states she was just tired this am. States "they couldn't get that thing (clarified as IV) in my arm so they sent me here" pt is currently being treated for UTI has ESBL in urine and on Ertapenem 1 gram.). Triage Date/Time: 17-Mar-2020 09:41 Pain Rating (0-10): 0 = None Vital Signs: Temperature: 98.1F ( 36.7C) taken oral Blood Pressure: 179/64 Mean: Heart Rate: 74 Respiratory Rate: 18 Pulse Oximetry: 99% on room air, no respiratory support. Height: 5 feet 6.00 inches. 167.6 CM Weight: 429.9 pounds. Calculated 195.0 kg. (stated) Calculated BMI (kg/m2): 69.420 Calculated BSA (m2) 3.01 Varinder Coma Scale: Best Eye Response: (E4) spontaneous Best Motor Response: (M6) obeys commands Best Verbal Response: (V5) oriented [place] Score: 15 Allergies: no Patient has homicidal thoughts: no KAYLYN: 3 Symptoms Are Negative For: aphasia, ataxia, confusion, diaphoresis, facial droop, headache, numbness, seizure and vomiting. Last Known Well: known Time Last Known Well Date/Time: 16-Mar-2020 Risk Screens Suicide Risk Screen In the Past Month: Have you wished you were or wished you could go to sleep and not wake up no In the Past Month: Have you had any actual thoughts of killing yourself no In Your Lifetime: Have you ever done anything, started to do anything, or prepared to do anything to end your life no Luna Fall Scale Screening Has the patient fallen before (or is the patient in the ED as a result of a fall) has not had a fall Does the patient have an impaired gait does not have impaired gait Is the patient cognitively impaired not cognitively impaired Interventions: Luna Fall Interventions: LOW INTERVENTIONS: *patient oriented to surroundings and call system, * patient/family falls education completed and documented, *patients fall status communicated during bedside handoff, *whiteboard updated, *mode of toileting discussed with patient, *bed in low position with brakes locked, *call light in reach, * non-skid footwear TRAVEL HISTORY Travel History Coronavirus Screening: no exposure or symptoms PAIN Pain Scale Used: HARI Pain Rating (0-10): 0 = None Past Medical History: Past Medical History Reviewedyes Electronic Signatures: Jeferson Martinez (RN) (Signed 17-Mar-2020 09:48) Entered: Risk Screens, Pain, Chart Review, Scores, Past Medical History Authored: Quick Triage, Risk Screens, Pain, Chart Review, Scores, Past Medical History Last Updated: 17-Mar-2020 09:48 by Jeferson Martinez (RN) [facility] Metabolic Panelon 08-14-2019 Glucose [Mass/Vol] 193 mg/dL above high threshold 74 - 99 [facility] Work Phone: Glucose [Mass/Vol] 187 mg/dL above high threshold 74 - 99 [facility] Work Phone: Glucose [Mass/Vol] 137 mg/dL above high threshold 74 - 99 [facility] Work Phone: Vancomycin Level, Randomon 0 08-14-2019 Vancomycin [Mass/Vol] 11.6 ug/mL [facility] Work Phone: Comment on above: .Therapeutic Ranges: Peak: All ages: 30.0-40.0 ug/mL. Trough: Age <18y: 5.0-10.0 ug/mL. Age >/= 18y: 5.0-20.0 ug/mL. Vancomycin trough concentrations drawn immediately prior to the next dose at steady-state are preferred for monitoring patients treated with vancomycin. Ref.: Am J Health-Syst Pharm 66: 83-98, 2009. Hematologyon 08-13-2019 INR Coag (PPP) [Relative time] 2.4 {INR} above high threshold 0.9 - 1.1 [facility] Work Phone: PT Coag (PPP) [Time] 27.0 {sec} above high threshold 9.7 - 12.7 [facility] Internal [facility] Work Phone: Metabolic Panelon 08-13-2019 Glucose [Mass/Vol] 208 mg/dL above high threshold 74 - 99 [facility] Work Phone: Glucose [Mass/Vol] 145 mg/dL above high threshold 74 - 99 [facility] Work Phone: Glucose [Mass/Vol] 159 mg/dL above high threshold 74 - 99 [facility] Work Phone: Glucose [Mass/Vol] 144 mg/dL above high threshold 74 - 99 [facility] Work Phone: Otheron 08-13-2019 Interpreted by: VIOLETA FARNSWORTH08/13/19 16:07MRN: [id number] Name: SALAZAR COYLE STUDY:INSERT ROBERTO CARLOS CVC W/O SQ PORT GREATER THAN 5 YRS; ULTRASOUND GUIDANCEFOR VASCULAR ACCESS; 08/13/2019 4:01 pm INDICATION:IV Infusion/IV MEds/Hydration/CT Scan, penniculitis, PICC PowerSingle Lumen. COMPARISON:None. [id number] ORDERING CLINICIAN:ALEXANDRE JC TECHNIQUE:INTERVENTIONALIS T(S):Napoleon Farnsworth MD CONSENT:The patient was informed of the nature of the proposed procedure. Thepurposes, alternatives, risks, and benefits were explained anddiscussed. All questions were answered and consent was obtained. MEDICATION/CONTRAST:No additional TIME OUT:A time out was performed immediately prior to procedure start withthe interventional team, correctly identifying the patient name, dateof , MRN, procedure, anatomy (including marking of site andside), patient position, procedure consent form, relevant laboratoryand imaging test results, antibiotic administration, safetyprecautions, and procedure-specific equipment needs. COMPLICATIONS:No immediate adverse events identified. FINDINGS:In the recumbent position, the patient was positioned on theangiography table. The right supraclavicular and infraclavicularcutaneous tissues were prepared and draped in usual sterile manner. The supraclavicular access site was screened with jiang-scaleultrasound with subsequent subcutaneous instillation of Lidocaine 1%local anesthesia. Ultrasound images demonstrate a patent rightinternal jugular vein. Under direct ultrasound guidance andSeldinger/micropuncture technique, the right internal jugular veinwas accessed. An ultrasound digital spot image was acquired andstored on the PACS. After confirmation of location, a 018Cope-Mandril guidewire was inserted to secure location. The guidewirewas advanced into the inferior vena cava. The micro-access needle wasremoved over the guidewire. Utilizing a coaxial dilator sheathsystem, subsequent access tract dilation was performed to an eventualpeel-away sheath dilator system. After Lidocaine 1% local anesthesia, a subcutaneous tunnel tract wascreated from the right infraclavicular chest to the venous accesssite. After continuity of the tunnel tract and venous access site wasobtained, a single lumen indwelling small bore central venouscatheter (tunneled PICC) was then placed with tract continuity andits central catheter tip(s) to reside at the cavoatrial junction. Aspot image of the chest was acquired in the AP projection to confirmoptimal location. The catheter port was aspirated and flushed without resistance withnormal saline. The catheter port was then charged with heparin. Thevenous access site was closed and sterilely dressed. The externalportions of the catheter were secured with a purse-string 2-0polypropylene suture and sterile dressings. The patient tolerated the procedure without complication. IMPRESSION:1. Uncomplicated placement of a right lumen indwellinginfraclavicular small bore central venous catheter (tunneled PICC).Flushed and ready to use. I was present for and/or performed the critical portions of theprocedure and immediately available throughout the entire procedure. I personally reviewed the image(s) / study and residentinterpretation. I agree with the findings as stated. Performed and dictated at [facility].Electronically signed by: NAPOLEON FARNSWORTH 08/13/19 16:[address] [facility] Work Phone: Comment on above: Ordering Provider: Vidal JC [id number] Hematologyon 08-12-2019 INR Coag (PPP) [Relative time] 3.1 {INR} above high threshold 0.9 - 1.1 [facility] Work Phone: PT Coag (PPP) [Time] 35.0 {sec} above high threshold 9.7 - 12.7 [facility] Work Phone: Metabolic Panelon 08-12-2019 Glucose [Mass/Vol] 200 mg/dL above high threshold 74 - 99 [facility] Work Phone: Glucose [Mass/Vol] 186 mg/dL above high threshold 74 - 99 [facility] Work Phone: Glucose [Mass/Vol] 131 mg/dL above high threshold 74 - 99 [facility] Work Phone: Vancomycin Level, Randomon 0 08-12-2019 Vancomycin [Mass/Vol] 11.6 ug/mL [facility] Work Phone: Comment on above: .Therapeutic Ranges: Peak: All ages: 30.0-40.0 ug/mL. Trough: Age <18y: 5.0-10.0 ug/mL. Age >/= 18y: 5.0-20.0 ug/mL. Vancomycin trough concentrations drawn immediately prior to the next dose at steady-state are preferred for monitoring patients treated with vancomycin. Ref.: Am J Health-Syst Pharm 66: 83-98, 2009. Albumin, Serumon 08-11-2019 Albumin BCP dye [Mass/Vol] 2.6 g/dL below low threshold 3.4 - 5.0 [facility] Work Phone: Hematologyon 08-11-2019 INR Coag (PPP) [Relative time] 3.8 {INR} above high threshold 0.9 - 1.1 [facility] Work Phone: PT Coag (PPP) [Time] 43.3 {sec} above high threshold 9.7 - 12.7 [facility] Work Phone: Metabolic Panelon 08-11-2019 Glucose [Mass/Vol] 171 mg/dL above high threshold 74 - 99 [facility] Work Phone: Glucose [Mass/Vol] 171 mg/dL above high threshold 74 - 99 [facility] Work Phone: Glucose [Mass/Vol] 173 mg/dL above high threshold 74 - 99 [facility] Work Phone: Glucose [Mass/Vol] 143 mg/dL above high threshold 74 - 99 [facility] Work Phone: Calcium, Ionized Levelon Calcium, Ionized Level 0.97 mmol/L below low threshold See Below [facility] Work Phone: Comment on above: Reference Range: 1.1 0 - 1.33 The performance characteristics of ionized calcium tested in heparinized plasma or serum have been validated by the individual laboratory site where testing is performed. Testing on heparinized plasma or serum is not approved by the FDA; however, such approval is not necessary. Complete Blood Count + Diffe rentialon 08-10-2019 Basophils (Bld) [#/Vol] 0.02 {x10E9/L} See Below [facility] Work Phone: Comment on above: Reference Range: 0.0 0 - 0.10 Basophils/100 WBC (Bld) 0.4 % 0.0 - 2.0 [facility] Work Phone: Eosinophils (Bld) [#/Vol] 0.41 {x10E9/L} See Below [facility] Work Phone: Comment on above: Reference Range: 0.0 0 - 0.70 Eosinophils/100 WBC (Bld) 7.5 % 0.0 - 6.0 [facility] Work Phone: Erythrocyte distribution width (RBC) [Ratio] 15.6 % above high threshold See Below [facility] Work Phone: Comment on above: Reference Range: 11. 5 - 14.5 Hematocrit (Bld) [Volume fraction] 35.5 % below low threshold See Below [facility] Work Phone: Comment on above: Reference Range: 36. 0 - 46.0 Hemoglobin (Bld) [Mass/Vol] 10.2 g/dL below low threshold See Below [facility] Work Phone: Comment on above: Reference Range: 12. 0 - 16.0 Lymphocytes (Bld) [#/Vol] 1.16 {x10E9/L} below low threshold See Below [facility] Work Phone: Comment on above: Reference Range: 1.2 0 - 4.80 Lymphocytes/100 WBC (Bld) 21.2 % See Below [facility] Work Phone: Comment on above: Reference Range: 13. 0 - 44.0 MCHC (RBC) [Mass/Vol] 28.7 g/dL below low threshold See Below [facility] Work Phone: Comment on above: Reference Range: 32. 0 - 36.0 MCV (RBC) [Entitic vol] 99 fL 80 - 100 [facility] Work Phone: Monocytes (Bld) [#/Vol] 0.36 {x10E9/L} See Below [facility] Work Phone: Comment on above: Reference Range: 0.1 0 - 1.00 Monocytes/100 WBC (Bld) 6.6 % 2.0 - 10.0 [facility] Work Phone: Neutrophils (Bld) [#/Vol] 3.48 {x10E9/L} See Below [facility] Work Phone: Comment on above: Reference Range: 1.2 0 - 7.70 Neutrophils/100 WBC (Bld) 63.6 % See Below [facility] Work Phone: Comment on above: Reference Range: 40. 0 - 80.0 Platelets (Bld) [#/Vol] 146 {x10E9/L} below low threshold 150 - 450 [facility] Work Phone: RBC (Bld) [#/Vol] 3.58 {x10E12/L} below low threshold See Below [facility] Work Phone: Comment on above: Reference Range: 4.0 0 - 5.20 WBC (Bld) [#/Vol] 5.5 {x10E9/L} 4.4 - 11.3 [facility] Work Phone: WBC (Bld) [#/Vol] 0.0 {/100_WBC} 0.0 - 0.0 [facility] Work Phone: Complete Blood Count + Differential 0.7 % 0.0 - 0.9 [facility] Work Phone: Comment on above: Immature Granulocyte Count (IG) includes promyelocytes, myelocytes and metamyelocytes but does not include bands. Percent differential counts (%) should be interpreted in the context of the absolute cell counts (cells/L). Hematologyon 08-10-2019 aPTT Coag (PPP) [Time] 47 {sec} above hig h threshold 28 - 38 [facility] Work Phone: Comment on above: THE APTT IS NO LONGE R USED FOR MONITORING UNFRACTIONATED HEPARIN THERAPY. FOR MONITORING HEPARIN THERAPY, USE THE HEPARIN ASSAY. INR Coag (PPP) [Relative time] 3.3 {INR} above high threshold 0.9 - 1.1 [facility] Work Phone: PT Coag (PPP) [Time] 36.9 {sec} above high threshold 9.7 - 12.7 [facility] Work Phone: Magnesium, Serumon 0 Magnesium [Mass/Vol] 1.82 mg/dL See Below [facility] Work Phone: Comment on above: Reference Range: 1.6 0 - 2.40 Metabolic Panelon 08-10-2019 Glucose [Mass/Vol] 155 mg/dL above high threshold 74 - 99 [facility] Work Phone: Glucose [Mass/Vol] 163 mg/dL above high threshold 74 - 99 [facility] Work Phone: Glucose [Mass/Vol] 186 mg/dL above high threshold 74 - 99 [facility] Work Phone: Glucose [Mass/Vol] 154 mg/dL above high threshold 74 - 99 [facility] Work Phone: Renal Function Panelon 08-09 Albumin BCP dye [Mass/Vol] 2.6 g/dL below low threshold 3.4 - 5.0 [facility] Work Phone: Anion gap [Moles/Vol] 14 mmol/L 10 - 20 [facility] Work Phone: Calcium [Mass/Vol] 7.6 mg/dL below low threshold 8.6 - 10.3 [facility] Work Phone: Chloride [Moles/Vol] 103 mmol/L 98 - 107 [facility] Work Phone: CO2 [Moles/Vol] 31 mmol/L 21 - 32 [facility] Work Phone: Creatinine [Mass/Vol] 0.74 mg/dL See Below [facility] Work Phone: Comment on above: Reference Range: 0.5 0 - 1.05 Glucose [Mass/Vol] 156 mg/dL above high threshold 74 - 99 [facility] Work Phone: Phosphate [Mass/Vol] 2.8 mg/dL 2.5 - 4.9 [facility] Work Phone: Comment on above: The performance jeovanny acteristics of phosphorus testing in heparinized plasma have been validated by the individual laboratory site where testing is performed. Testing on heparinized plasma is not approved by the FDA; however, such approval is not necessary. Potassium [Moles/Vol] 3.4 mmol/L below low threshold 3.5 - 5.3 [facility] Work Phone: Sodium [Moles/Vol] 145 mmol/L 136 - 145 [facility] Work Phone: Urea nitrogen [Mass/Vol] 13 mg/dL 6 - 23 [facility] Work Phone: Renal Function Panel >60 >60 [facility] Internal [facility] Work Phone: Comment on above: CALCULATIONS OF YORDAN MATED GFR ARE PERFORMED USING THE MDRD STUDY EQUATION FOR THE IDOR-TRACEABLE CREATININE METHODS. CLIN CHEM 2007;53:766-72 Vancomycin Level, Randomon 0 08-10-2019 Vancomycin [Mass/Vol] 15.5 ug/mL [facility] Work Phone: Comment on above: .Therapeutic Ranges: Peak: All ages: 30.0-40.0 ug/mL. Trough: Age <18y: 5.0-10.0 ug/mL. Age >/= 18y: 5.0-20.0 ug/mL. Vancomycin trough concentrations drawn immediately prior to the next dose at steady-state are preferred for monitoring patients treated with vancomycin. Ref.: Am J Health-Syst Pharm 66: 83-98, 2008. Calcium, Ionized Levelon Calcium, Ionized Level 0.98 mmol/L below low threshold See Below [facility] Work Phone: Comment on above: Reference Range: 1.1 0 - 1.33 The performance characteristics of ionized calcium tested in heparinized plasma or serum have been validated by the individual laboratory site where testing is performed. Testing on heparinized plasma or serum is not approved by the FDA; however, such approval is not necessary. Complete Blood Count + Diffe rentialon 08-09-2019 Basophils (Bld) [#/Vol] 0.02 {x10E9/L} See Below [facility] Work Phone: Comment on above: Reference Range: 0.0 0 - 0.10 Basophils/100 WBC (Bld) 0.4 % 0.0 - 2.0 [facility] Work Phone: Eosinophils (Bld) [#/Vol] 0.38 {x10E9/L} See Below [facility] Work Phone: Comment on above: Reference Range: 0.0 0 - 0.70 Eosinophils/100 WBC (Bld) 7.2 % 0.0 - 6.0 [facility] Work Phone: Erythrocyte distribution width (RBC) [Ratio] 15.8 % above high threshold See Below [facility] Work Phone: Comment on above: Reference Range: 11. 5 - 14.5 Hematocrit (Bld) [Volume fraction] 35.0 % below low threshold See Below [facility] Work Phone: Comment on above: Reference Range: 36. 0 - 46.0 Hemoglobin (Bld) [Mass/Vol] 10.3 g/dL below low threshold See Below [facility] Work Phone: Comment on above: Reference Range: 12. 0 - 16.0 Lymphocytes (Bld) [#/Vol] 0.96 {x10E9/L} below low threshold See Below [facility] Work Phone: Comment on above: Reference Range: 1.2 0 - 4.80 Lymphocytes/100 WBC (Bld) 18.2 % See Below [facility] Work Phone: Comment on above: Reference Range: 13. 0 - 44.0 MCHC (RBC) [Mass/Vol] 29.4 g/dL below low threshold See Below [facility] Work Phone: Comment on above: Reference Range: 32. 0 - 36.0 MCV (RBC) [Entitic vol] 98 fL 80 - 100 [facility] Work Phone: Monocytes (Bld) [#/Vol] 0.38 {x10E9/L} See Below [facility] Work Phone: Comment on above: Reference Range: 0.1 0 - 1.00 Monocytes/100 WBC (Bld) 7.2 % 2.0 - 10.0 [facility] Work Phone: Neutrophils (Bld) [#/Vol] 3.51 {x10E9/L} See Below [facility] Work Phone: Comment on above: Reference Range: 1.2 0 - 7.70 Neutrophils/100 WBC (Bld) 66.4 % See Below [facility] Work Phone: Comment on above: Reference Range: 40. 0 - 80.0 Platelets (Bld) [#/Vol] 147 {x10E9/L} below low threshold 150 - 450 [facility] Work Phone: RBC (Bld) [#/Vol] 3.56 {x10E12/L} below low threshold See Below [facility] Work Phone: Comment on above: Reference Range: 4.0 0 - 5.20 WBC (Bld) [#/Vol] 5.3 {x10E9/L} 4.4 - 11.3 [facility] Work Phone: WBC (Bld) [#/Vol] 0.0 {/100_WBC} 0.0 - 0.0 [facility] Work Phone: Complete Blood Count + Differential 0.6 % 0.0 - 0.9 [facility] Work Phone: Comment on above: Immature Granulocyte Count (IG) includes promyelocytes, myelocytes and metamyelocytes but does not include bands. Percent differential counts (%) should be interpreted in the context of the absolute cell counts (cells/L). Hematologyon 08-09-2019 aPTT Coag (PPP) [Time] 45 {sec} above hig h threshold 28 - 38 [facility] Work Phone: Comment on above: THE APTT IS NO LONGE R USED FOR MONITORING UNFRACTIONATED HEPARIN THERAPY. FOR MONITORING HEPARIN THERAPY, USE THE HEPARIN ASSAY. INR Coag (PPP) [Relative time] 2.9 {INR} above high threshold 0.9 - 1.1 [facility] Work Phone: PT Coag (PPP) [Time] 33.3 {sec} above high threshold 9.7 - 12.7 [facility] Work Phone: Magnesium, Serumon 0 Magnesium [Mass/Vol] 1.81 mg/dL See Below [facility] Work Phone: Comment on above: Reference Range: 1.6 0 - 2.40 Magnesium [Mass/Vol] 1.82 mg/dL See Below -[facility] Work Phone: Comment on above: Reference Range: 1.6 0 - 2.40 Metabolic Panelon 08-09-2019 Glucose [Mass/Vol] 181 mg/dL above high threshold 74 - 99 [facility] Work Phone: Glucose [Mass/Vol] 159 mg/dL above high threshold 74 - 99 [facility] Work Phone: Glucose [Mass/Vol] 147 mg/dL above high threshold 74 - 99 [facility] Work Phone: Anion gap [Moles/Vol] 7 mmol/L below low threshold 10 - 20 [facility] Work Phone: Calcium [Mass/Vol] 7.6 mg/dL below low threshold 8.6 - 10.3 [facility] Work Phone: Chloride [Moles/Vol] 103 mmol/L 98 - 107 [facility] Work Phone: CO2 [Moles/Vol] 36 mmol/L above high threshold 21 - 32 [facility] Work Phone: Creatinine [Mass/Vol] 0.81 mg/dL See Below [facility] Work Phone: Comment on above: Reference Range: 0.5 0 - 1.05 Glucose [Mass/Vol] 196 mg/dL above high threshold 74 - 99 [facility] Work Phone: Potassium [Moles/Vol] 3.3 mmol/L below low threshold 3.5 - 5.3 [facility] Work Phone: Sodium [Moles/Vol] 143 mmol/L 136 - 145 [facility] Work Phone: Urea nitrogen [Mass/Vol] 14 mg/dL 6 - 23 [facility] Work Phone: Glucose [Mass/Vol] 141 mg/dL above high threshold 74 - 99 [facility] Work Phone: Otheron 08-09-2019 >60 >60 [facility] Work Phone: Comment on above: CALCULATIONS OF YORDAN MATED GFR ARE PERFORMED USING THE MDRD STUDY EQUATION FOR THE IDMS-TRACEABLE CREATININE METHODS. CLIN CHEM 2007;53:766-72 Renal Function Panelon 08-08 Albumin BCP dye [Mass/Vol] 2.6 g/dL below low threshold 3.4 - 5.0 [facility] Work Phone: Anion gap [Moles/Vol] 12 mmol/L 10 - 20 [facility] Work Phone: Calcium [Mass/Vol] 7.8 mg/dL below low threshold 8.6 - 10.3 [facility] Work Phone: Chloride [Moles/Vol] 103 mmol/L 98 - 107 [facility] Work Phone: CO2 [Moles/Vol] 34 mmol/L above high threshold 21 - 32 [facility] Work Phone: Creatinine [Mass/Vol] 0.81 mg/dL See Below [facility] Work Phone: Comment on above: Reference Range: 0.5 0 - 1.05 Glucose [Mass/Vol] 130 mg/dL above high threshold 74 - 99 [facility] Work Phone: Phosphate [Mass/Vol] 3.2 mg/dL 2.5 - 4.9 [facility] Work Phone: Comment on above: The performance jeovanny acteristics of phosphorus testing in heparinized plasma have been validated by the individual laboratory site where testing is performed. Testing on heparinized plasma is not approved by the FDA; however, such approval is not necessary. Potassium [Moles/Vol] 3.3 mmol/L below low threshold 3.5 - 5.3 [facility] Work Phone: Sodium [Moles/Vol] 146 mmol/L above high threshold 136 - 145 [facility] Work Phone: Urea nitrogen [Mass/Vol] 16 mg/dL 6 - 23 [facility] Work Phone: Renal Function Panel >60 >60 [facility] Work Phone: Comment on above: CALCULATIONS OF YORDAN MATED GFR ARE PERFORMED USING THE MDRD STUDY EQUATION FOR THE IDOR-TRACEABLE CREATININE METHODS. CLIN CHEM 2007;53:766-72 Calcium, Ionized Levelon Calcium, Ionized Level 0.93 mmol/L below low threshold See Below [facility] Work Phone: Comment on above: Reference Range: 1.1 0 - 1.33 The performance characteristics of ionized calcium tested in heparinized plasma or serum have been validated by the individual laboratory site where testing is performed. Testing on heparinized plasma or serum is not approved by the FDA; however, such approval is not necessary. Complete Blood Count + Diffe rentialon 08-08-2019 Basophils (Bld) [#/Vol] 0.02 {x10E9/L} See Below [facility] Work Phone: Comment on above: Reference Range: 0.0 0 - 0.10 Basophils/100 WBC (Bld) 0.5 % 0.0 - 2.0 [facility] Work Phone: Eosinophils (Bld) [#/Vol] 0.24 {x10E9/L} See Below [facility] Work Phone: Comment on above: Reference Range: 0.0 0 - 0.70 Eosinophils/100 WBC (Bld) 5.7 % 0.0 - 6.0 [facility] Work Phone: Erythrocyte distribution width (RBC) [Ratio] 15.9 % above high threshold See Below [facility] Work Phone: Comment on above: Reference Range: 11. 5 - 14.5 Hematocrit (Bld) [Volume fraction] 34.6 % below low threshold See Below [facility] Work Phone: Comment on above: Reference Range: 36. 0 - 46.0 Hemoglobin (Bld) [Mass/Vol] 9.5 g/dL below low threshold See Below [facility] Work Phone: Comment on above: Reference Range: 12. 0 - 16.0 Lymphocytes (Bld) [#/Vol] 0.82 {x10E9/L} below low threshold See Below [facility] Work Phone: Comment on above: Reference Range: 1.2 0 - 4.80 Lymphocytes/100 WBC (Bld) 19.4 % See Below [facility] Work Phone: Comment on above: Reference Range: 13. 0 - 44.0 MCHC (RBC) [Mass/Vol] 27.5 g/dL below low threshold See Below [facility] Work Phone: Comment on above: Reference Range: 32. 0 - 36.0 MCV (RBC) [Entitic vol] 105 fL above high threshold 80 - 100 [facility] Work Phone: Monocytes (Bld) [#/Vol] 0.29 {x10E9/L} See Below [facility] Work Phone: Comment on above: Reference Range: 0.1 0 - 1.00 Monocytes/100 WBC (Bld) 6.9 % 2.0 - 10.0 [facility] Work Phone: Neutrophils (Bld) [#/Vol] 2.85 {x10E9/L} See Below [facility] Work Phone: Comment on above: Reference Range: 1.2 0 - 7.70 Neutrophils/100 WBC (Bld) 67.3 % See Below [facility] Work Phone: Comment on above: Reference Range: 40. 0 - 80.0 Platelets (Bld) [#/Vol] 90 {x10E9/L} below low threshold 150 - 450 [facility] Work Phone: RBC (Bld) [#/Vol] 3.31 {x10E12/L} below low threshold See Below [facility] Work Phone: Comment on above: Reference Range: 4.0 0 - 5.20 WBC (Bld) [#/Vol] 4.2 {x10E9/L} below low threshold 4.4 - 11.3 [facility] Work Phone: WBC (Bld) [#/Vol] 0.0 {/100_WBC} 0.0 - 0.0 [facility] Work Phone: Complete Blood Count + Differential 0.2 % 0.0 - 0.9 [facility] Work Phone: Comment on above: Immature Granulocyte Count (IG) includes promyelocytes, myelocytes and metamyelocytes but does not include bands. Percent differential counts (%) should be interpreted in the context of the absolute cell counts (cells/L). Hematologyon 08-08-2019 aPTT Coag (PPP) [Time] 23 {sec} below low threshold 28 - 38 [facility] Work Phone: Comment on above: THE APTT IS NO LONGE R USED FOR MONITORING UNFRACTIONATED HEPARIN THERAPY. FOR MONITORING HEPARIN THERAPY, USE THE HEPARIN ASSAY. INR Coag (PPP) [Relative time] 2.2 {INR} above high threshold 0.9 - 1.1 [facility] Work Phone: PT Coag (PPP) [Time] 24.3 {sec} above high threshold 9.7 - 12.7 [facility] Work Phone: Magnesium, Serumon 0 Magnesium [Mass/Vol] 1.87 mg/dL See Below [facility] Work Phone: Comment on above: Reference Range: 1.6 0 - 2.40 Metabolic Panelon 08-08-2019 Glucose [Mass/Vol] 151 mg/dL above high threshold 74 - 99 [facility] Work Phone: Glucose [Mass/Vol] 142 mg/dL above high threshold 74 - 99 [facility] Work Phone: Glucose [Mass/Vol] 163 mg/dL above high threshold 74 - 99 [facility] Work Phone: Glucose [Mass/Vol] 143 mg/dL above high threshold 74 - 99 [facility] Work Phone: Otheron 08-08-2019 XR Knee 1 or 2 views Interpreted by: ISELA SHAFFER08/08/19 15:22MRN: [id number] Name: SALAZAR COYLE STUDY:KNEE; 1 OR 2 VIEWS; 08/08/2019 3:09 pm INDICATION:PAIN. COMPARISON:None. ORDERING CLINICIAN:GIULIANA ROYAL FINDINGS:Exam is limited due to suboptimal positioning on both views. There [id number] joint space narrowing with subchondral sclerosis andosteophyte formation involving the lateral compartment. No definitefracture or dislocation. IMPRESSION:Severe lateral compartment degenerative changes of the right knee.Limited exam. Electronically signed by: ENMANUEL SHAFFER 08/08/19 15:22 Normal [facility] Work Phone: Comment on above: Ordering Provider: Heike ROYAL [id number] Interpreted by: ARPITA CHANDRA08/08/19 10:06MRN: [id number] Name: SALAZAR COYLE STUDY:HIP, UNILATERAL W/PELVIS WHEN PERFORMED, 1 VIEW; 08/08/2019 9:50 am INDICATION:pain. COMPARISON:None. ORDERING CLINICIAN:JULIO CESAR SHUKLA TECHNIQUE:2 AP views of the right hip were obtained. FINDINGS:The study is severely limited by the patient's body habitus anddifficulty with patient positioning. There is no definite displacedfracture or dislocation identified. Mild degenerative changes areseen in the right hip. Multiple rounded calcifications are seenthroughout the pelvis, most consistent with phleboliths. IMPRESSION:1. No definite displaced fracture identified.Electronically signed by: ARPITA CHANDRA 08/08/19 10:06 Normal [facility] Work Phone: Comment on above: Ordering Provider: Kirsten SHUKLA [id number] Renal Function Panelon 08-07 Albumin BCP dye [Mass/Vol] 2.5 g/dL below low threshold 3.4 - 5.0 [facility] Work Phone: Anion gap [Moles/Vol] 12 mmol/L 10 - 20 [facility] Work Phone: Calcium [Mass/Vol] 7.8 mg/dL below low threshold 8.6 - 10.3 [facility] Work Phone: Chloride [Moles/Vol] 103 mmol/L 98 - 107 [facility] Work Phone: CO2 [Moles/Vol] 33 mmol/L above high threshold 21 - 32 [facility] Work Phone: Creatinine [Mass/Vol] 0.81 mg/dL See Below [facility] Work Phone: Comment on above: Reference Range: 0.5 0 - 1.05 Glucose [Mass/Vol] 144 mg/dL above high threshold 74 - 99 [facility] Work Phone: Phosphate [Mass/Vol] 3.2 mg/dL 2.5 - 4.9 [facility] Work Phone: Comment on above: The performance jeovanny acteristics of phosphorus testing in heparinized plasma have been validated by the individual laboratory site where testing is performed. Testing on heparinized plasma is not approved by the FDA; however, such approval is not necessary. Potassium [Moles/Vol] 3.7 mmol/L 3.5 - 5.3 [facility] Work Phone: Sodium [Moles/Vol] 144 mmol/L 136 - 145 [facility] Work Phone: Urea nitrogen [Mass/Vol] 19 mg/dL 6 - 23 [facility] Work Phone: Renal Function Panel >60 >60 [facility] Work Phone: Comment on above: CALCULATIONS OF YORDAN MATED GFR ARE PERFORMED USING THE MDRD STUDY EQUATION FOR THE IDMS-TRACEABLE CREATININE METHODS. CLIN CHEM 2007;53:766-72 Troponin I, Serumon 08-08-19 20 Troponin I.cardiac [Mass/Vol] 0.16 ng/mL Critically high See Below [facility] Work Phone: Comment on above: Reference Range: 0.0 0 - 0.03LESS THAN 0.04 NG/ML: NEGATIVEREPEAT TESTING IN THREE TO SIX HOURSIF CLINICALLY INDICATED.0.04 - 0.5 NG/ML: CONSISTENT WITH POSSIBLECARDIAC DAMAGE AND POSSIBLE INCREASEDCLINICAL RISK.SERIAL MEASUREMENTS MAY HELP ASSESS EXTENT OFMYOCARDIAL DAMAGE.>0.5 NG/ML: CONSISTENT WITH CARDIAC DAMAGE,INCREASED CLINICAL RISK AND MYOCARDIALINFARCTION. SERIAL MEASUREMENTS MAY HELPASSESS EXTENT OF MYOCARDIAL DAMAGE..Note: Troponin I testing is performed using different testing methodology at [facility] than at [facility]. Direct result comparisons should only be made within the same method. Called- RB to dave frazier, 08/08/2019 09:14 Called- RB to glendy meng rn, 08/08/2019 09:14 Vancomycin Level, Randomon 0 08-08-2019 Vancomycin [Mass/Vol] 13.4 ug/mL [facility] Work Phone: Comment on above: .Therapeutic Ranges: Peak: All ages: 30.0-40.0 ug/mL. Trough: Age <18y: 5.0-10.0 ug/mL. Age >/= 18y: 5.0-20.0 ug/mL. Vancomycin trough concentrations drawn immediately prior to the next dose at steady-state are preferred for monitoring patients treated with vancomycin. Ref.: Am J Health-Syst Pharm 66: 83-98, 2009. Ordering Provider: Lexy KINGSTON [id number] Calcium, Ionized Levelon Calcium, Ionized Level 1.02 mmol/L below low threshold See Below [facility] Work Phone: Comment on above: Reference Range: 1.1 0 - 1.33 The performance characteristics of ionized calcium tested in heparinized plasma or serum have been validated by the individual laboratory site where testing is performed. Testing on heparinized plasma or serum is not approved by the FDA; however, such approval is not necessary. Complete Blood Count + Diffe nat 08-07-2019 Basophils (Bld) [#/Vol] 0.02 {x10E9/L} See Below [facility] Work Phone: Comment on above: Reference Range: 0.0 0 - 0.10 Basophils/100 WBC (Bld) 0.3 % 0.0 - 2.0 [facility] Work Phone: Eosinophils (Bld) [#/Vol] 0.18 {x10E9/L} See Below [facility] Work Phone: Comment on above: Reference Range: 0.0 0 - 0.70 Eosinophils/100 WBC (Bld) 2.7 % 0.0 - 6.0 [facility] Work Phone: Erythrocyte distribution width (RBC) [Ratio] 16.2 % above high threshold See Below [facility] Work Phone: Comment on above: Reference Range: 11. 5 - 14.5 Hematocrit (Bld) [Volume fraction] 34.2 % below low threshold See Below [facility] Work Phone: Comment on above: Reference Range: 36. 0 - 46.0 Hemoglobin (Bld) [Mass/Vol] 9.8 g/dL below low threshold See Below [facility] Work Phone: Comment on above: Reference Range: 12. 0 - 16.0 Lymphocytes (Bld) [#/Vol] 0.78 {x10E9/L} below low threshold See Below [facility] Work Phone: Comment on above: Reference Range: 1.2 0 - 4.80 Lymphocytes/100 WBC (Bld) 11.6 % See Below [facility] Work Phone: Comment on above: Reference Range: 13. 0 - 44.0 MCHC (RBC) [Mass/Vol] 28.7 g/dL below low threshold See Below [facility] Work Phone: Comment on above: Reference Range: 32. 0 - 36.0 MCV (RBC) [Entitic vol] 101 fL above high threshold 80 - 100 [facility] Work Phone: Monocytes (Bld) [#/Vol] 0.30 {x10E9/L} See Below [facility] Work Phone: Comment on above: Reference Range: 0.1 0 - 1.00 Monocytes/100 WBC (Bld) 4.4 % 2.0 - 10.0 [facility] Work Phone: Neutrophils (Bld) [#/Vol] 5.45 {x10E9/L} See Below [facility] Work Phone: Comment on above: Reference Range: 1.2 0 - 7.70 Neutrophils/100 WBC (Bld) 80.7 % See Below [facility] Work Phone: Comment on above: Reference Range: 40. 0 - 80.0 Platelets (Bld) [#/Vol] 122 {x10E9/L} below low threshold 150 - 450 [facility] Work Phone: RBC (Bld) [#/Vol] 3.39 {x10E12/L} below low threshold See Below [facility] Work Phone: Comment on above: Reference Range: 4.0 0 - 5.20 WBC (Bld) [#/Vol] 0.0 {/100_WBC} 0.0 - 0.0 [facility] Work Phone: WBC (Bld) [#/Vol] 6.8 {x10E9/L} 4.4 - 11.3 [facility] Work Phone: Complete Blood Count + Differential 0.3 % 0.0 - 0.9 [facility] Work Phone: Comment on above: Immature Granulocyte Count (IG) includes promyelocytes, myelocytes and metamyelocytes but does not include bands. Percent differential counts (%) should be interpreted in the context of the absolute cell counts (cells/L). Cult, Urineon 08-07-2019 Bacteria identified Cx Nom (U) PATIENT: SALAZAR COYLE LOCATION: [address]#: [id number] : 46 AGE: SEX: F ORDERED BY: MCKENZIE RIVERA: URINE COLLECTED: 08/07/19 17:02ANTIBIOTICS AT [place].: RECEIVED : 08/08/19 00:32SITE: [facility] E [facility] T S URINE CULTURE,BACTERIAL FINAL 08/09/19 09:[address] [facility] Internal [facility] Work Phone: Hematologyon 08-07-2019 aPTT Coag (PPP) [Time] 29 {sec} 28 - 38 [facility] Work Phone: Comment on above: THE APTT IS NO LONGE R USED FOR MONITORING UNFRACTIONATED HEPARIN THERAPY. FOR MONITORING HEPARIN THERAPY, USE THE HEPARIN ASSAY. INR Coag (PPP) [Relative time] 2.3 {INR} above high threshold 0.9 - 1.1 [facility] Work Phone: PT Coag (PPP) [Time] 26.2 {sec} above high threshold 9.7 - 12.7 [facility] Work Phone: Lipid Panelon 08-07-2019 Cholesterol [Mass/Vol] 107 mg/dL 0 - 199 [facility] Work Phone: Comment on above: . AGE DESIRABLE BORD ROBBY HIGH HIGH 0-19 Y 0 - 169 170 - 199 >/= 200 20-24 Y 0 - 189 190 - 224 >/= 225 >24 Y 0 - 199 200 - 239 >/= 240 All ranges are based on fasting samples. Specific therapeutic targets will vary based on patient-specific cardiac risk.. Pediatric guidelines reference:Pediatrics 2011, 128(S5). Adult guidelines reference: NCEP ATPIII Guidelines, MAINOR 2001, 258:2486-97. Venipuncture immediately after or during the administration of Metamizole may lead to falsely low results. Testing should be performed immediately prior to Metamizole dosing. Cholesterol in HDL [Mass/Vol] 27.8 mg/dL Abnormal [facility] Work Phone: Comment on above: . AGE VERY LOW LOW N ORMAL HIGH 0-19 Y < 35 < 40 40-45 ---- 20-24 Y ---- < 40 >45 ---- >24 Y ---- < 40 40-60 >60. Cholesterol in LDL [Mass/Vol] 57 mg/dL 0 - 99 [facility] Work Phone: Comment on above: . NEAR BORD AGE BEN RABLE OPTIMAL HIGH HIGH VERY HIGH 0-19 Y 0 - 109 --- 110-129 >/= 130 ---- 20-24 Y 0 - 119 --- 120-159 >/= 160 ---- >24 Y 0 - 99 100-129 130-159 160-189 >/=190. Cholesterol.total/Chol esterol in HDL [Mass ratio] 3.8 {ratio} [facility] Work Phone: Comment on above: REF VALUESDESIRABLE < 3.4HIGH RISK > 5.0 Triglyceride [Mass/Vol] 113 mg/dL 0 - 149 [facility] Work Phone: Comment on above: . AGE DESIRABLE BORD ROBBY HIGH HIGH VERY HIGH 0 D-90 D 19 - 174 ---- ---- ----91 D- 9 Y 0 - 74 75 - 99 >/= 100 ---- 10-19 Y 0 - 89 90 - 129 >/= 130 ---- 20-24 Y 0 - 114 115 - 149 >/= 150 ---- >24 Y 0 - 149 150 - 199 200- 499 >/= 500. Venipuncture immediately after or during the administration of Metamizole may lead to falsely low results. Testing should be performed immediately prior to Metamizole dosing. Lipid Panel 23 mg/dL 0 - 40 [facility] Work Phone: Magnesium, Serumon 0 Magnesium [Mass/Vol] 1.87 mg/dL See Below [facility] Internal [facility] Work Phone: Comment on above: Reference Range: 1.6 0 - 2.40 Metabolic Panelon 08-07-2019 Glucose [Mass/Vol] 189 mg/dL above high threshold 74 - 99 [facility] Work Phone: Glucose [Mass/Vol] 191 mg/dL above high threshold 74 - 99 [facility] Work Phone: Glucose [Mass/Vol] 168 mg/dL above high threshold 74 - 99 [facility] Work Phone: Glucose [Mass/Vol] 149 mg/dL above high threshold 74 - 99 [facility] Work Phone: Otheron [phone] [facility] Work Phone: [phone] [facility] Work Phone: [phone] [facility] Work Phone: [phone] [facility] Work Phone: [phone] [facility] Work Phone: [phone] [facility] Work Phone: [phone] [facility] Work Phone: [email or web address] [facility] Work Phone: [phone] [facility] Work Phone: [phone] [facility] Work Phone: [address] [facility] Work Phone: [address] [facility] Work Phone: [address] [facility] Work Phone: Sinus rhythm with premature atrial complexes [facility] Work Phone: [phone] [facility] Work Phone: [phone] [facility] Work Phone: Renal Function Panelon 08-06 Albumin BCP dye [Mass/Vol] 2.6 g/dL below low threshold 3.4 - 5.0 [facility] Work Phone: Anion gap [Moles/Vol] 9 mmol/L below low threshold 10 - 20 [facility] Work Phone: Calcium [Mass/Vol] 7.7 mg/dL below low threshold 8.6 - 10.3 [facility] Work Phone: Chloride [Moles/Vol] 103 mmol/L 98 - 107 [facility] Work Phone: CO2 [Moles/Vol] 35 mmol/L above high threshold 21 - 32 [facility] Work Phone: Creatinine [Mass/Vol] 0.93 mg/dL See Below [facility] Work Phone: Comment on above: Reference Range: 0.5 0 - 1.05 Glucose [Mass/Vol] 150 mg/dL above high threshold 74 - 99 [facility] Work Phone: Phosphate [Mass/Vol] 3.0 mg/dL 2.5 - 4.9 [facility] Work Phone: Comment on above: The performance jeovanny acteristics of phosphorus testing in heparinized plasma have been validated by the individual laboratory site where testing is performed. Testing on heparinized plasma is not approved by the FDA; however, such approval is not necessary. Potassium [Moles/Vol] 3.4 mmol/L below low threshold 3.5 - 5.3 [facility] Work Phone: Sodium [Moles/Vol] 144 mmol/L 136 - 145 [facility] Work Phone: Urea nitrogen [Mass/Vol] 24 mg/dL above high threshold 6 - 23 [facility] Work Phone: Renal Function Panel 59 {mL/min/1.73m2} Abnormal >60 [facility] Work Phone: Renal Function Panel 71 {mL/min/1.73m2} >60 [facility] Work Phone: Comment on above: CALCULATIONS OF YORDAN MATED GFR ARE PERFORMED USING THE MDRD STUDY EQUATION FOR THE IDMS-TRACEABLE CREATININE METHODS. CLIN CHEM 2007;53:766-72 Sedimentation Rate, Erythroc yteon 08-07-2019 ESR (Bld) [Velocity] 72 mm/h above high threshold 0 - 30 [facility] Work Phone: Vancomycin Level, Troughon 0 08-07-2019 Vancomycin trough [Mass/Vol] 31.1 ug/mL Critically high 5.0 - 20.0 [facility] Work Phone: Comment on above: Vancomycin levels sh ould be interpreted in conjunction with the dose, disease being treated, vancomycin JERRY, time of draw (trough concentrations should be obtained just before the next dose at steady-state), and other clinical information. Trough concentrations of 15-20 ug/mL are desired for severe infections. Ref.: Am J Health-Syst Pharm 66: 83-98, 2009. Called- RB to Gerald PRINCE [phone] AT 1150, 08/07/2019 11:51 Called- RB to Gerald SELBY SE [phone] AT 1150, 08/07/2019 11:51 Blood Gason 08-06-2019 HCO3 (Bld) [Moles/Vol] 39.3 mmol/L above hig h threshold See Below [facility] Work Phone: Comment on above: Reference Range: 22. 0 - 26.0 Ordering Provider: [place] [id number] Oxygen (Bld) [Partial pressure] 79 {mmHg} below low threshold 85 - 95 [facility] Work Phone: Comment on above: [place]: [place] [id number] HCO3 (Bld) [Moles/Vol] 40.8 mmol/L above hig h threshold See Below [facility] Work Phone: Comment on above: Reference Range: 22. 0 - 26.0 Ordering Provider: [place] [address] Oxygen (Bld) [Partial pressure] 87 {mmHg} 85 - 95 [facility] Work Phone: Comment on above: Ordering [place]: [place] [id number] C Reactive Protein, Serumon 08-06-2019 CRP [Mass/Vol] 23.38 mg/dL Abnormal [facility] Internal [facility] Work Phone: Comment on above: REF VALUE< 1.00 Calcium, Ionized Levelon Calcium, Ionized Level 1.03 mmol/L below low threshold See Below [facility] Work Phone: Comment on above: Reference Range: 1.1 0 - 1.33 The performance characteristics of ionized calcium tested in heparinized plasma or serum have been validated by the individual laboratory site where testing is performed. Testing on heparinized plasma or serum is not approved by the FDA; however, such approval is not necessary. Calcium, Ionized Level 1.01 mmol/L below low threshold See Below [facility] Work Phone: Comment on above: Reference Range: 1.1 0 - 1.33 The performance characteristics of ionized calcium tested in heparinized plasma or serum have been validated by the individual laboratory site where testing is performed. Testing on heparinized plasma or serum is not approved by the FDA; however, such approval is not necessary. Complete Blood Count + Diffe rentialon 08-06-2019 Basophils (Bld) [#/Vol] 0.01 {x10E9/L} See Below [facility] Work Phone: Comment on above: Reference Range: 0.0 0 - 0.10 Basophils/100 WBC (Bld) 0.1 % 0.0 - 2.0 [facility] Work Phone: Eosinophils (Bld) [#/Vol] 0.00 {x10E9/L} See Below [facility] Work Phone: Comment on above: Reference Range: 0.0 0 - 0.70 Eosinophils/100 WBC (Bld) 0.0 % 0.0 - 6.0 [facility] Work Phone: Erythrocyte distribution width (RBC) [Ratio] 16.7 % above high threshold See Below [facility] Work Phone: Comment on above: Reference Range: 11. 5 - 14.5 Hematocrit (Bld) [Volume fraction] 39.4 % See Below [facility] Work Phone: Comment on above: Reference Range: 36. 0 - 46.0 Hemoglobin (Bld) [Mass/Vol] 11.3 g/dL below low threshold See Below [facility] Work Phone: Comment on above: Reference Range: 12. 0 - 16.0 Lymphocytes (Bld) [#/Vol] 0.61 {x10E9/L} below low threshold See Below [facility] Work Phone: Comment on above: Reference Range: 1.2 0 - 4.80 Lymphocytes/100 WBC (Bld) 5.8 % See Below [facility] Work Phone: Comment on above: Reference Range: 13. 0 - 44.0 MCHC (RBC) [Mass/Vol] 28.7 g/dL below low threshold See Below [facility] Work Phone: Comment on above: Reference Range: 32. 0 - 36.0 MCV (RBC) [Entitic vol] 101 fL above high threshold 80 - 100 [facility] Work Phone: Monocytes (Bld) [#/Vol] 0.33 {x10E9/L} See Below [facility] Work Phone: Comment on above: Reference Range: 0.1 0 - 1.00 Monocytes/100 WBC (Bld) 3.1 % 2.0 - 10.0 [facility] Work Phone: Neutrophils/100 WBC (Bld) 90.6 % See Below [facility] Work Phone: Comment on above: Reference Range: 40. 0 - 80.0 Platelets (Bld) [#/Vol] 144 {x10E9/L} below low threshold 150 - 450 [facility] Work Phone: RBC (Bld) [#/Vol] 3.90 {x10E12/L} below low threshold See Below [facility] Work Phone: Comment on above: Reference Range: 4.0 0 - 5.20 WBC (Bld) [#/Vol] 10.6 {x10E9/L} 4.4 - 11.3 [facility] Work Phone: WBC (Bld) [#/Vol] 0.0 {/100_WBC} 0.0 - 0.0 [facility] Work Phone: Complete Blood Count + Differential 9.61 {x10E9/L} above high threshold See Below [facility] Work Phone: Comment on above: Reference Range: 1.2 0 - 7.70 Complete Blood Count + Differential 0.4 % 0.0 - 0.9 [facility] Work Phone: Comment on above: Immature Granulocyte Count (IG) includes promyelocytes, myelocytes and metamyelocytes but does not include bands. Percent differential counts (%) should be interpreted in the context of the absolute cell counts (cells/L). Basophils (Bld) [#/Vol] 0.01 {x10E9/L} See Below [facility] Work Phone: Comment on above: Reference Range: 0.0 0 - 0.10 Basophils/100 WBC (Bld) 0.1 % 0.0 - 2.0 [facility] Work Phone: Eosinophils (Bld) [#/Vol] 0.00 {x10E9/L} See Below [facility] Work Phone: Comment on above: Reference Range: 0.0 0 - 0.70 Eosinophils/100 WBC (Bld) 0.0 % 0.0 - 6.0 [facility] Work Phone: Erythrocyte distribution width (RBC) [Ratio] 16.3 % above high threshold See Below [facility] Work Phone: Comment on above: Reference Range: 11. 5 - 14.5 Hematocrit (Bld) [Volume fraction] 40.5 % See Below [facility] Work Phone: Comment on above: Reference Range: 36. 0 - 46.0 Hemoglobin (Bld) [Mass/Vol] 11.6 g/dL below low threshold See Below [facility] Work Phone: Comment on above: Reference Range: 12. 0 - 16.0 Lymphocytes (Bld) [#/Vol] 0.66 {x10E9/L} below low threshold See Below [facility] Work Phone: Comment on above: Reference Range: 1.2 0 - 4.80 Lymphocytes/100 WBC (Bld) 5.6 % See Below [facility] Work Phone: Comment on above: Reference Range: 13. 0 - 44.0 MCHC (RBC) [Mass/Vol] 28.6 g/dL below low threshold See Below [facility] Work Phone: Comment on above: Reference Range: 32. 0 - 36.0 MCV (RBC) [Entitic vol] 102 fL above high threshold 80 - 100 [facility] Work Phone: Monocytes (Bld) [#/Vol] 0.37 {x10E9/L} See Below [facility] Work Phone: Comment on above: Reference Range: 0.1 0 - 1.00 Monocytes/100 WBC (Bld) 3.1 % 2.0 - 10.0 [facility] Work Phone: Neutrophils/100 WBC (Bld) 90.5 % See Below [facility] Work Phone: Comment on above: Reference Range: 40. 0 - 80.0 Platelets (Bld) [#/Vol] 155 {x10E9/L} 150 - 450 [facility] Work Phone: RBC (Bld) [#/Vol] 3.99 {x10E12/L} below low threshold See Below [facility] Work Phone: Comment on above: Reference Range: 4.0 0 - 5.20 WBC (Bld) [#/Vol] 0.0 {/100_WBC} 0.0 - 0.0 [facility] Work Phone: WBC (Bld) [#/Vol] 11.8 {x10E9/L} above high threshold 4.4 - 11.3 [facility] Work Phone: Complete Blood Count + Differential 10.70 {x10E9/L} above high threshold See Below [facility] Work Phone: Comment on above: Reference Range: 1.2 0 - 7.70 Complete Blood Count + Differential 0.7 % 0.0 - 0.9 [facility] Work Phone: Comment on above: Immature Granulocyte Count (IG) includes promyelocytes, myelocytes and metamyelocytes but does not include bands. Percent differential counts (%) should be interpreted in the context of the absolute cell counts (cells/L). Cult, Bloodon 08-06-2019 Bacteria identified Cx Nom (Bld) PATIENT: SALAZAR COYLE LOCATION: [facility] PBILL#: [id number] : 46 AGE: SEX: F ORDERED BY: VANESSA LUIS: Blood COLLECTED: 08/06/19 11:03ANTIBIOTICS AT [place].: RECEIVED : 08/06/19 16:36SITE: PERIPHERAL PERIPHERAL R E S U L T S BLOOD CULTURE, BACTERIAL FINAL 08/11/19 17:42 No Growth at 1 days No Growth at 2 days No Growth at 3 days No Growth at 4 days NO GROWTH - FINAL REPORT left arm [facility] Work Phone: Bacteria identified Cx Nom (Bld) PATIENT: SALAZAR COYLE LOCATION: 9[facility] PBILL#: [id number] : 46 AGE: SEX: F ORDERED BY: VANESSA LUIS: Blood COLLECTED: 08/06/19 09:45ANTIBIOTICS AT [place]BIN[place].: RECEIVED : 08/06/19 16:34SITE: PERIPHERAL R E S U L T S BLOOD CULTURE, BACTERIAL FINAL 08/11/19 17:42 No Growth at 1 days No Growth at 2 days No Growth at 3 days No Growth at 4 days NO GROWTH - FINAL REPORT right arm [facility] Internal [facility] Work Phone: Bacteria identified Cx Nom (Bld) PATIENT: SALAZAR COYLE LOCATION: [facility] PBILL#: [id number] : 46 AGE: SEX: F ORDERED BY: ANTHONY CEJA: Blood COLLECTED: 08/06/19 05:10ANTIBIOTICS AT [place].: RECEIVED : 08/06/19 08:18SITE: R E S U L T S BLOOD CULTURE, BACTERIAL FINAL 08/11/19 09:42 No Growth at 1 days No Growth at 2 days No Growth at 3 days No Growth at 4 days NO GROWTH - FINAL REPORT [facility] Internal [facility] Work Phone: Cult, Urineon 08-06-2019 Bacteria identified Cx Nom (U) PATIENT: SALAZAR COYLE LOCATION: [facility] PBILL#: [id number] : 46 AGE: SEX: F ORDERED BY: ANTHONY CEJA: URINE COLLECTED: 08/06/19 02:12ANTIBIOTICS AT [place].: RECEIVED : 08/06/19 09:02SITE: Jose Cath R E S U L T S URINE CULTURE,BACTERIAL FINAL 08/07/19 08:16 MULTIPLE ORGANISMS PRESENT, PROBABLE CONTAMINATION PLEASE REPEAT CULTURE. Abnormal [facility] Work Phone: Bacteria identified Cx Nom (U) PATIENT: SALAZAR COYLE LOCATION: [facility] PMBILL#: [id number] : 46 AGE: SEX: F ORDERED BY: ANTHONY CEJA: URINE COLLECTED: 08/06/19 02:12ANTIBIOTICS AT [place].: RECEIVED : SITE: R E S U L T S URINE CULTURE,BACTERIAL CANCELLED 08/06/19 02:45 [facility] Work Phone: Comment on above: TEST URINE CULTURE,B ACTERIAL WAS CANCELLED, 08/06/2019 02:45 DUPLICATE ORDER. Hematologyon 08-06-2019 pH (Bld) 7.47 [pH] above high threshold See Below [facility] Work Phone: Comment on above: Reference Range: 7.3 8 - 7.42 Ordering Provider: [place] [id number] aPTT Coag (PPP) [Time] 42 {sec} above hig h threshold 28 - 38 [facility] Work Phone: Comment on above: THE APTT IS NO LONGE R USED FOR MONITORING UNFRACTIONATED HEPARIN THERAPY. FOR MONITORING HEPARIN THERAPY, USE THE HEPARIN ASSAY. INR Coag (PPP) [Relative time] 2.4 {INR} above high threshold 0.9 - 1.1 [facility] Work Phone: PT Coag (PPP) [Time] 27.3 {sec} above high threshold 9.7 - 12.7 [facility] Work Phone: aPTT Coag (PPP) [Time] 48 {sec} above hig h threshold 28 - 38 [facility] Work Phone: Comment on above: THE APTT IS NO LONGE R USED FOR MONITORING UNFRACTIONATED HEPARIN THERAPY. FOR MONITORING HEPARIN THERAPY, USE THE HEPARIN ASSAY. INR Coag (PPP) [Relative time] 2.6 {INR} above high threshold 0.9 - 1.1 [facility] Work Phone: PT Coag (PPP) [Time] 29.3 {sec} above high threshold 9.7 - 12.7 [facility] Work Phone: Hematocrit (Bld) [Volume fraction] 38.0 % See Below [facility] Work Phone: Comment on above: Reference Range: 36. 0 - 46.0 Ordering Provider: [place] [id number] Hemoglobin (Bld) [Mass/Vol] 12.9 g/dL See Below [facility] Work Phone: Comment on above: Reference Range: 12. 0 - 16.0 Ordering Provider: [place] [id number] pH (Bld) 7.47 [pH] above high threshold See Below [facility] Work Phone: Comment on above: Reference Range: 7.3 8 - 7.42 Ordering Provider: [place] [address] Hemoglobin A1Con 08-06-2019 HbA1c (Bld) [Mass fraction] 6.5 % [facility] Work Phone: Comment on above: Diagnosis of Diabete s-Adults Non-Diabetic: < or = 5.6% Increased risk for developing diabetes: 5.7-6.4% Diagnostic of diabetes: > or = 6.5%. Monitoring of Diabetes Age (y) Therapeutic Goal (%) Adults: >18 <7.0 Pediatrics: 13-18 <7.5 7-12 <8.0 0- 6 7.5-8.5 [place] [employer]. Diabetes Care 33(S1), Apr 2009. HbA1c (Bld) [Mass fraction] 140 {MG/DL} [facility] Work Phone: Lactate, Levelon 08-06-2019 Lactate [Moles/Vol] 1.0 mmol/L 0.4 - 2.0 [facility] Work Phone: Comment on above: Venipuncture immedia tely after or during the administration of Metamizole may lead to falsely low results. Testing should be performed immediately prior to Metamizole dosing. Ordering Provider: [place] [id number] Lactate [Moles/Vol] 2.4 mmol/L above high threshold 0.4 - 2.0 [facility] Work Phone: Comment on above: Venipuncture immedia tely after or during the administration of Metamizole may lead to falsely low results. Testing should be performed immediately prior to Metamizole dosing. Lactate [Moles/Vol] 2.0 mmol/L 0.4 - 2.0 [facility] Work Phone: Comment on above: Venipuncture immedia tely after or during the administration of Metamizole may lead to falsely low results. Testing should be performed immediately prior to Metamizole dosing. [place]ing Provider: [place] [address] Lactate [Moles/Vol] 2.3 mmol/L above high threshold 0.4 - 2.0 [facility] Work Phone: Comment on above: Venipuncture immedia tely after or during the administration of Metamizole may lead to falsely low results. Testing should be performed immediately prior to Metamizole dosing. Legionella Antigen, Urineon 08-06-2019 L. pneumophila 1 Ag IA Ql (U) Negative Negative [facility] Work Phone: Comment on above: SOURCE: NEGATIVE FOR LEGIONELLA PNEUMOPHILIASEROGROUP 1 ANTIGEN IN URINE,SUGGESTING NO CURRENT OR PAST INFECTION. Magnesium, Serumon 0 Magnesium [Mass/Vol] 2.03 mg/dL See Below [facility] Work Phone: Comment on above: Reference Range: 1.6 0 - 2.40 Magnesium [Mass/Vol] 2.01 mg/dL See Below [facility] Work Phone: Comment on above: Reference Range: 1.6 0 - 2.40 Metabolic Panelon 08-06-2019 Glucose [Mass/Vol] 186 mg/dL above high threshold 74 - 99 [facility] Work Phone: Glucose [Mass/Vol] 177 mg/dL above high threshold 74 - 99 [facility] Work Phone: Comment on above: Ordering [place]: [place] [id number] Glucose [Mass/Vol] 163 mg/dL above high threshold 74 - 99 [facility] Work Phone: Comment on above: [place]: [place] [address] Glucose [Mass/Vol] 138 mg/dL above high threshold 74 - 99 [facility] Work Phone: Comment on above: [place]: [place] [address] CO2 (Bld) [Partial pressure] 54 {mmHg} above high threshold 38 - 42 [facility] Work Phone: Comment on above: Ordering Provider: Kirsten Rainey Glucose [Mass/Vol] 161 mg/dL above high threshold 74 - 99 [facility] Work Phone: Comment on above: Ordering Provider: Kirsten Rainey Glucose [Mass/Vol] 159 mg/dL above high threshold 74 - 99 [facility] Work Phone: Comment on above: Ordering Provider: Kirsten Rainey Calcium.ionized (Bld) [Moles/Vol] 1.12 mmol/L See Below [facility] Internal [facility] Work Phone: Comment on above: Reference Range: 1.1 0 - 1.33 Ordering Provider: Kirsten Rainey Chloride [Moles/Vol] 103 mmol/L 98 - 107 [facility] Internal [facility] Work Phone: Comment on above: Ordering Provider: Kirsten Rainey CO2 (Bld) [Partial pressure] 56 {mmHg} above high threshold 38 - 42 [facility] Work Phone: Comment on above: Ordering Provider: Kirsten Rainey Glucose [Mass/Vol] 189 mg/dL above high threshold 74 - 99 [facility] Work Phone: Comment on above: Ordering Provider: Kirsten Rainey Lactate [Moles/Vol] 0.9 mmol/L 0.4 - 2.0 [facility] Work Phone: Comment on above: Ordering Provider: Kirsten Rainey Potassium [Moles/Vol] 3.7 mmol/L 3.5 - 5.3 [facility] Work Phone: Comment on above: Ordering Provider: Kirsten Rainey Sodium [Moles/Vol] 145 mmol/L 136 - 145 [facility] Work Phone: Comment on above: Ordering Provider: Kirsten Rainey Otheron 08-06-2019 XR Foot 2 views Interpreted by: HARRIET WRAY [facility]08/06/19 13:31MRN: [id number] Name: SALAZAR COYLE STUDY:FOOT, 2 VIEWS; 08/06/2019 1:25 pm INDICATION:check for osteomyelitis. COMPARISON:None. ORDERING CLINICIAN:PAIGE RIVERA TECHNIQUE:Three views of the right foot FINDINGS:severe diffuse soft tissue swelling. There is no definitive evidenceof gas in the soft tissues. Bones are demineralized. There is noevidence of acute fracture or advanced osteomyelitis. No radiopaqueforeign bodies in the soft tissues. Evaluation of bones is somewhatdegraded because of demineralization. There are diffuse vascularcalcifications. IMPRESSION:As aboveElectronically signed by: SARAH CARTER 08/06/19 13:31 Normal [facility] Work Phone: Interpreted by: ARPITA CHANDRA08/06/19 08:40MRN: [id number] Name: SALAZAR COYLE STUDY:CHEST 1 VIEW; 08/06/2019 5:50 am INDICATION:RESP FAILURE. COMPARISON:08/05/2019 ORDERING CLINICIAN:CORI CEJA FINDINGS:A single AP portable radiograph of the chest was obtained. Multiplecardiac monitoring leads are seen over the chest. Mild diffuseinterstitial infiltrates are seen bilaterally, and may representedema and/or pneumonia. No focal infiltrate, pleural effusion orpneumothorax is identified. The cardiac silhouette is enlarged,similar to prior studies. IMPRESSION:No significant interval change in the appearance of the chest, withfindings as above.Electronically signed by: ARPITA CHANDRA 08/06/19 08:40 Normal [facility] Work Phone: Arterial patency Wrist artery --pre arterial puncture Positive [facility] Work Phone: Comment on above: [place]: [place] [id number] Inhaled oxygen concentration 30 % 21 - 100 [facility] Work Phone: Comment on above: Order[place]: [place] [address] 6.9 {Liter} [facility] Work Phone: Comment on above: [place]: [place] [address] 8.0 {cm_H2O} [facility] Work Phone: Comment on above: Ordering Provider: Kirsten Rainey L Radial [facility] Work Phone: Comment on above: Ordering Provider: Kirsten Rainey 13.3 mmol/L above high threshold -2.0 - 3.0 [facility] Work Phone: Comment on above: Ordering Provider: Kirsten Rainey 10 {bpm} [facility] Work Phone: Comment on above: Ordering Provider: Kirsten Rainey 98 % 94 - 100 [facility] Work Phone: Comment on above: Ordering Provider: Kirsten Rainey BiPAP [facility] Work Phone: Comment on above: Ordering Provider: Kirsten Rainey 17 {bpm} [facility] Work Phone: Comment on above: Ordering Provider: Kirsten Rainey 18.0 {cm_H2O} [facility] Work Phone: Comment on above: Ordering Provider: Kirsten Rainey S. pneumoniae Ag Ql (U) Negative Negative [facility] Work Phone: Comment on above: INTERPRETIVE INFORMA TION: Streptococcus pneumoniae Ag, UrineFalse-positives may occur because of cross-reactivity with other members of the S. mitis group. Clinical correlation is recommended.Performed by [facility],[address] [place] [id number] btf.[facility], Yaron Mayberry MD, Lab. Director Anion gap (Bld) [Moles/Vol] 5 mmol/L below low threshold 10 - 25 [facility] Work Phone: Comment on above: Ordering Provider: Kirsten Rainey Arterial patency Wrist artery --pre arterial puncture Positive [facility] Work Phone: Comment on above: Ordering Provider: Kirsten Rainey Inhaled oxygen concentration 35 % 21 - 100 [facility] Work Phone: Comment on above: Ordering Provider: Kirsten Boyd937 7.0 {cm_H2O} [facility] Work Phone: Comment on above: Ordering Provider: Kirsten Boyd937 98 % 94 - 100 [facility] Work Phone: Comment on above: Ordering Provider: Kirsten Boyd937 500 mL [facility] Work Phone: Comment on above: Ordering Provider: Kirsten Rainey 15.0 {cm_H2O} [facility] Work Phone: Comment on above: Ordering Provider: Kirsten Rainey 14.6 mmol/L above high threshold -2.0 - 3.0 [facility] Work Phone: Comment on above: Ordering Provider: Kirsten Boyd937 R Brachial [facility] Work Phone: Comment on above: Ordering Provider: Kirsten Boyd937 BiPAP [facility] Work Phone: Comment on above: Ordering Provider: Kirsten Rainey Phosphorus, Serumon 08-06-19 20 Phosphate [Mass/Vol] 3.5 mg/dL 2.5 - 4.9 [facility] Work Phone: Comment on above: The performance jeovanny acteristics of phosphorus testing in heparinized plasma have been validated by the individual laboratory site where testing is performed. Testing on heparinized plasma is not approved by the FDA; however, such approval is not necessary. Renal Function Panelon 08-05 Albumin BCP dye [Mass/Vol] 3.0 g/dL below low threshold 3.4 - 5.0 [facility] Work Phone: Anion gap [Moles/Vol] 11 mmol/L 10 - 20 [facility] Work Phone: Calcium [Mass/Vol] 8.5 mg/dL below low threshold 8.6 - 10.3 [facility] Work Phone: Chloride [Moles/Vol] 103 mmol/L 98 - 107 [facility] Work Phone: CO2 [Moles/Vol] 38 mmol/L above high threshold 21 - 32 [facility] Work Phone: Creatinine [Mass/Vol] 1.08 mg/dL above high threshold See Below [facility] Work Phone: Comment on above: Reference Range: 0.5 0 - 1.05 Glucose [Mass/Vol] 167 mg/dL above high threshold 74 - 99 [facility] Work Phone: Phosphate [Mass/Vol] 3.1 mg/dL 2.5 - 4.9 [facility] Work Phone: Comment on above: The performance jeovanny acteristics of phosphorus testing in heparinized plasma have been validated by the individual laboratory site where testing is performed. Testing on heparinized plasma is not approved by the FDA; however, such approval is not necessary. Potassium [Moles/Vol] 4.1 mmol/L 3.5 - 5.3 [facility] Work Phone: Sodium [Moles/Vol] 148 mmol/L above high threshold 136 - 145 [facility] Work Phone: Urea nitrogen [Mass/Vol] 25 mg/dL above high threshold 6 - 23 [facility] Work Phone: Renal Function Panel 50 {mL/min/1.73m2} Abnormal >60 [facility] Work Phone: Renal Function Panel 61 {mL/min/1.73m2} >60 [facility] Work Phone: Comment on above: CALCULATIONS OF YORDAN MATED GFR ARE PERFORMED USING THE MDRD STUDY EQUATION FOR THE IDMS-TRACEABLE CREATININE METHODS. CLIN CHEM 2007;53:766-72 Troponin I, Serumon 08-06-19 20 Troponin I.cardiac [Mass/Vol] 1.27 ng/mL Critically high See Below [facility] Work Phone: Comment on above: Reference Range: 0.0 0 - 0.03LESS THAN 0.04 NG/ML: NEGATIVEREPEAT TESTING IN THREE TO SIX HOURSIF CLINICALLY INDICATED.0.04 - 0.5 NG/ML: CONSISTENT WITH POSSIBLECARDIAC DAMAGE AND POSSIBLE INCREASEDCLINICAL RISK.SERIAL MEASUREMENTS MAY HELP ASSESS EXTENT OFMYOCARDIAL DAMAGE.>0.5 NG/ML: CONSISTENT WITH CARDIAC DAMAGE,INCREASED CLINICAL RISK AND MYOCARDIALINFARCTION. SERIAL MEASUREMENTS MAY HELPASSESS EXTENT OF MYOCARDIAL DAMAGE..Note: Troponin I testing is performed using different testing methodology at [facility] than at other [facility]. Direct result comparisons should only be made within the same method. Called- RB to HANNA RN, 08/06/2019 06:17 Called- RB to YANG HERNANDEZ RN, 08/06/2019 06:17 Troponin I.cardiac [Mass/Vol] 1.35 ng/mL Critically high See Below [facility] Work Phone: Comment on above: Reference Range: 0.0 0 - 0.03LESS THAN 0.04 NG/ML: NEGATIVEREPEAT TESTING IN THREE TO SIX HOURSIF CLINICALLY INDICATED.0.04 - 0.5 NG/ML: CONSISTENT WITH POSSIBLECARDIAC DAMAGE AND POSSIBLE INCREASEDCLINICAL RISK.SERIAL MEASUREMENTS MAY HELP ASSESS EXTENT OFMYOCARDIAL DAMAGE.>0.5 NG/ML: CONSISTENT WITH CARDIAC DAMAGE,INCREASED CLINICAL RISK AND MYOCARDIALINFARCTION. SERIAL MEASUREMENTS MAY HELPASSESS EXTENT OF MYOCARDIAL DAMAGE..Note: Troponin I testing is performed using different testing methodology at [facility] than at other [facility]. Direct result comparisons should only be made within the same method. Called- RB to HANNA RN, 08/06/2019 03:07 Called- RB to YANG LT RN, 08/06/2019 03:07 Troponin I.cardiac [Mass/Vol] 1.27 ng/mL Critically high See Below [facility] Internal [facility] Work Phone: Comment on above: Reference Range: 0.0 0 - 0.03LESS THAN 0.04 NG/ML: NEGATIVEREPEAT TESTING IN THREE TO SIX HOURSIF CLINICALLY INDICATED.0.04 - 0.5 NG/ML: CONSISTENT WITH POSSIBLECARDIAC DAMAGE AND POSSIBLE INCREASEDCLINICAL RISK.SERIAL MEASUREMENTS MAY HELP ASSESS EXTENT OFMYOCARDIAL DAMAGE.>0.5 NG/ML: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 RESPIRATORY: Negative for cough, wheezing or shortness of breath. CARDIOVASCULAR: Negative for chest pain, leg swelling or palpitations. GASTROINTESTINAL: Negative for abdominal discomfort, blood in stools or black stools or change in bowel habits. GENITOURINARY: See HPI. SHAREPOINT DESIGNER DEVELOPER: Negative for abnormal vaginal bleeding, abnormal vaginal discharge. MUSCULOSKELETAL: Negative for joint pain or swelling, back pain or muscle pain. NEUROLOGIC:Negative for focal numbness or weakness, headaches and dizziness or syncope. PSYCHIATRIC: Negative for sleep disturbance, mood disorder and recent psychosocial stressors. MEDICATIONS: acetaminophen (TYLENOL) 325 mg tablet Take 2 tablets by mouth every 4 hours as needed. warfarin (COUMADIN) 5 mg tablet Take 1 tablet by mouth daily as directed. DULoxetine (CYMBALTA) 60 mg capsule Take 60 mg by mouth once daily. FA/mv,Ca,iron,min/lycopene /lut (MULTIVITAL ORAL) Take 1 tablet by mouth once daily. insulin glargine (BASAGLAR KWIKPEN U-100 INSULIN) 100 unit/mL (3 mL) inpn Inject 65 Units subcutaneously daily at bedtime. cyclobenzaprine (FLEXERIL) 10 mg tablet Take 10 mg by mouth every 8 hours as needed for Muscle Spasm. bisacodyl (DULCOLAX) 10 mg supp 10 mg by RECTAL route once daily as needed for Constipation. miconazole (MICONAZORB AF) 2 % powder Apply 1 application to affected area twice daily. Apply to breast, groin, and abdominal folds. amitriptyline (ELAVIL) 25 mg tablet Take 25 mg by mouth daily at bedtime. baclofen (LIORESAL) 10 mg tablet Take 10 mg by mouth three times daily. oxyCODONE IR (ROXICODONE) 10 mg tab Take 10 mg by mouth every 4 hours as needed (pain). albuterol (PROVENTIL) 2.5 mg /3 mL (0.083 %) nebulizer solution Use 3 mL via nebulizer every 4 hours as needed for Wheezing/Shortness of Breath. insulin lispro (HUMALOG KWIKPEN) 100 unit/mL inpn Inject 15 Units subcutaneously three times daily before meals. insulin lispro (HUMALOG KWIKPEN) 100 unit/mL pen Inject 0-10 Units subcutaneously three times daily before meals. If Blood Glucose (mg/dL) is:Less than 110 Give 0 -406 Give 0 [id number] Give 2 -489 Give 4 [id number] Give 6 -541 Give 8 [id number] Give 10 unitsGreater than 400 Give 10 units and Notify Provider atorvastatin (LIPITOR) 40 mg tablet Take 1 tablet by mouth daily at bedtime. metoprolol tartrate, short acting, (LOPRESSOR) 25 mg tablet Take 0.5 tablets by mouth every 12 hours. miconazole (MONISTAT-DERM,MAY) 2 % cream Apply 1 application to affected area twice daily. gabapentin (NEURONTIN) 600 mg tablet Take 600 mg by mouth four times daily. lidocaine (LIDODERM) 5 % Apply 3 Patches as directed once daily. Two patches to right hip, 1 patch to left thigh ALLERGIES No Known Allergies HISTORIES PAST MEDICAL HISTORY Diagnosis Date - Back pain - Foot ulcer (HCC) - Generalized weakness - Hip pain - Hyperlipemia - Hypertension - Morbid obesity (HCC) - Muscle spasm of back - Osteoarthritis - PAF (paroxysmal atrial fibrillation) ([facility]) - Rotator cuff tear - Stroke ([facility]) - Type 2 diabetes mellitus with hyperglycemia ([facility]) PAST SURGICAL HISTORY Procedure Laterality Date - APPENDECTOMY - BLADDER SURGERY HX - TONSILLECTOMY HX - TUBAL LIGATION HX FAMILY HISTORY Problem Relation Age of Onset - Heart Mother - Diabetes Mother - Stroke Father - Cancer Other - Osteoporosis Other SOCIAL HISTORY Social History Tobacco Use - Smoking status: Never Smoker - Smokeless tobacco: Never Used Substance Use Topics - Alcohol use: No - Drug use: No Ht 165.1 cm (5' 5") Wt (!) 192.8 kg (425 lb) BMI 70.72 kg/m? PHYSICAL EXAM: General Appearance: Well appearing, alert, in no acute distress, well-hydrated, well nourished. Skin: Skin color, texture, turgor normal, no suspicious rashes or lesions. Back: Normal. Lungs: Normal respritory effort no wheezing. Extremities: No deformities, edema, cyanosis. ASSESSMENT/PLAN: 1. Retention of urine - ICD9: 788.20, ICD10: R33.9 2. Recurrent UTI - ICD9: 599.0, ICD10: N39.0 3. Bladder spasms - ICD9: 596.89, ICD10: N32.89 Abdi Lerner [facility]N.[facility] Letter Text Normal [facility] CONSULTon 08-16-2018 CONSULT HNO ID: [id number] Author: Jarad Masterson MD Service: Urology Author Type: Resident Type: Consults Filed: 08/16/2018 1:18 PM Note Text: -- Attestation signed by Casper Veliz at 08/16/2018 1:30 PM I have not evaluated the patient but discussed with the resident and agree with resident's findings and plan as documented in the resident's note. Caspre Veliz MD -- Urology Inpatient Consultation 08/16/2018 HISTORY OF PRESENT ILLNESS: The patient is a 67 year old female known to our service for difficult jose placement secondary to obesity. She is morbidly obese and bed bound. She has had jose catheter for the last year. Catheter was removed at outside facility to be changed and they were unable to replace the catheter. ED was also unable to place the jose catheter. 16F jose catheter placed by urology resident at the bedside. Once adequate exposure had been achieved, the catheter was placed in the urethra easily with no resistance. Urine was clear yellow. PAST MEDICAL HISTORY: PAST MEDICAL HISTORY Diagnosis Date - Back pain - Foot ulcer ([facility]) - Generalized weakness - Hip pain - Hyperlipemia - Hypertension - Morbid obesity ([facility]) - Muscle spasm of back - Osteoarthritis - PAF (paroxysmal atrial fibrillation) ([facility]) - Rotator cuff tear - Stroke ([facility]) - Type 2 diabetes mellitus with hyperglycemia ([facility]) PAST SURGICAL HISTORY: PAST SURGICAL HISTORY Procedure Laterality Date - APPENDECTOMY - BLADDER SURGERY HX - TONSILLECTOMY HX - TUBAL LIGATION HX ALLERGIES: ALLERGIES No Known Allergies HOME MEDICATIONS: (Not in a hospital admission) FAMILY HISTORY: Family History Problem Relation Age of Onset - Heart Mother - Diabetes Mother - Stroke Father - Cancer Other - Osteoporosis Other Social History: Tobacco Use: Never Alcohol Use: No ROS: Constitutional: negative for chills and fevers HEENT: no blurry vision or eye redness Respiratory: negative for hemoptysis and shortness of breath Cardiovascular: negative for dyspnea and syncope Gastrointestinal: negative for jaundice, nausea and vomiting Genitourinary:negative for dysuria and hematuria, +some vaginal bleeding after previous catheterization attempts Hematologic/lymphatic: negative for bleeding Integumentary: no new bruises or lesions Musculoskeletal:negative for muscle weakness Neurological: negative for coordination problems and seizures All other systems negative PHYSICAL EXAM: VITALS: 08/16/18 0922 08/16/18 1116 BP: 145/60 (!) 114/44 Pulse: (!) 54 Resp: 20 Temp: 36.7 ?C (98.1 ?F) TempSrc: Oral SpO2: 97% 96% Weight: (!) 191.9 kg (423 lb) Height: 170.2 cm (5' 7") General: Alert, in no acute distress, obese Head: Normocephalic, atraumatic Neck: supple, trachea is midline, no obvious masses Respiratory: normal effort, no audible wheezes Cardiovascular: regular pulse and no cyanosis Musculoskeletal: moving all extremities, normal tone Skin: warm and dry Psych: normal mood and affect, oriented Abdomen: soft, non distended, non tender, no organomegaly, no hernias : no cva or sp tenderness DATA: LABS: BMP: . Glucose (mg/dL) Date Value 07/09/2018 148 Potassium (mEq/L) Date Value 07/09/2018 4.0 Sodium (mEq/L) Date Value 07/09/2018 142 Chloride (mEq/L) Date Value 07/09/2018 106 CO2 (mEq/L) Date Value 07/09/2018 32 Creatinine (mg/dL) Date Value 07/09/2018 0.74 BUN (mg/dL) Date Value 07/09/2018 11 Anion Gap (no units) Date Value 07/09/2018 8 Calcium (mg/dL) Date Value 07/09/2018 8.2 CBC: HGB (g/dL) Date Value 07/09/2018 9.7 Hematocrit (%) Date Value 07/09/2018 31.2 WBC (thou/cmm) Date Value 07/09/2018 6.77 Platelet Count (thou/cmm) Date Value 07/09/2018 178 Urinalysis: pH, Arterial Date Value Ref Range Status 01/06/2018 7.355 7.350 - 7.450 Final Specific [place], Ur Date Value Ref Range Status 08/16/2018 1.021 1.005 - 1.030 Final Glucose, Urine Date Value Ref Range Status 08/16/2018 NEGATIVE Negative mg/dL Final Bilirubin, Urine Date Value Ref Range Status 08/16/2018 see below (A) Negative Final Comment: Detected (Unable to confirm). Ketones, Urine Date Value Ref Range Status 08/16/2018 NEGATIVE Negative mg/dL Final Protein, Urine Date Value Ref Range Status 08/16/2018 30 (A) Negative mg/dL Final Urobilinogen, Urine Date Value Ref Range Status 08/16/2018 0.2 0.2 - 1.0 EU/dL Final Nitrites Urine Date Value Ref Range Status 08/16/2018 NEGATIVE Negative Final WBC, Urine Date Value Ref Range Status 08/16/2018 145.1 (H) 0.0 - 5.0 /hpf Final RADIOLOGY: No new IMPRESSION: 67 year old female with morbid obesity, urinary incontinence, and difficult jose secondary to body habitus PLAN: - Maintain jose catheter. Recommend monthly catheter changes - When changing catheter, recommend achieving adequate exposure so the urethra can be visualized - Recommend 3 days of antibiotics due to difficult catheter placement - No further intervention - Call with questions - Will discuss with attending Thank you for allowing me to participate in the care of your patient Jarad Masterson MD 08/16/2018 1:13 PM Normal [facility] Cult Urineon 08-16-2018 Cult Urine Test performed at [facility] No growth Normal [facility] Comment on above: Performed By: #### G FR #### [place] [id number] ED NOTEon 08-16-2018 ED NOTE HNO ID: [id number] Author: Ying (Rn) MATHEUS Nguyen Service: Emergency Medicine Author Type: Registered Nurse Type: ED Notes Filed: 08/16/2018 10:04 AM Note Text: Multiple jose attempts without success Normal [facility] ED NOTE HNO ID: [id number] Author: Vincent (MedicMeri Hughes Service: ? Author Type: Laundry Clerk and Thermoplastic Technician Type: ED Notes Filed: 08/16/2018 9:19 AM Note Text: Bed: 36-ED Expected date: 08/16/18 Expected time: Means of arrival: [facility] Comments: [facility] ED PROV NOTEon 08-16-2018 ED PROV NOTE HNO ID: [id number] Author: Christina Cuenca MD Service: Emergency Medicine Author Type: Physician Type: ED Provider Notes Filed: 08/16/2018 8:21 PM Note Text: Brief HPI: Salazar Coyle is a 67 year old female with a PMH as documented below who presents for evaluation of inability place a Jose catheter. Patient is coming from a [facility]. She has a chronic indwelling Jose catheter. They're unable to replace it last night meeting resistance. Patient denies any other complaints at this time. She is without fevers abdominal pain nausea or vomiting. PAST MEDICAL HISTORY Diagnosis Date - Back pain - Foot ulcer ([facility]) - Generalized weakness - Hip pain - Hyperlipemia - Hypertension - Morbid obesity ([facility]) - Muscle spasm of back - Osteoarthritis - PAF (paroxysmal atrial fibrillation) ([facility]) - Rotator cuff tear - Stroke (HCC) - Type 2 diabetes mellitus with hyperglycemia (HCC) Constitutional: Nontoxic, well-appearing without any respiratory distress. HEENT: Mucous membranes moist. Neck: Supple. Normal range of motion. Cardiovascular: Heart is regular rate and rhythm without murmurs, rubs or gallops. Pulmonary: Lungs clear to auscultation bilaterally without wheezes, rhonchi as well as rales. Gastrointestinal: Abdomen soft, nontender, nondistended with normal active bowel sounds. No rebound, guarding or peritoneal signs. Genitourinary: No CVA tenderness. MDM: We attempted to replace a Jose catheter and unsuccessful. Urology consulted. They placed a Jose catheter. We will put her on a course of prophylactic antibiotics. Urine culture sent. See resident/PA note for disposition details Christina Cuenca MD 08/16/182020 Normal [facility] ED PROV NOTE HNO ID: [id number] Author: Adriana Charles DO Service: Emergency Medicine Author Type: Resident Type: ED Provider Notes Filed: 08/16/2018 2:45 PM Note Text: -- Attestation signed by Christina Cuenca MD at 08/16/2018 8:28 PM Attending Note I evaluated the patient and personally participated in the arias components. I agree with the resident's findings and plan as documented and have discussed the case and management of the patient's care with the resident. Signature: Christina Cuenca MD Date: 08/16/2018 Time: 8:28 PM -- ED Provider Note Patient Name: Salazar Coyle SERVICE DATE: 08/16/18 History Patient presents with: Urinary Problem: [facility] staff took out jose cath for routine change and was unable to replace jose d/t "meeting resistance" and then stated pt had "bleeding" after jose attempt. unsure of how much bleeding. Pt stated she never saw it. Patient is a 67-year-old female with a history of DM presenting to the emergency department via EMS from nursing facility for Jose catheter problem. The patient was getting a routine catheter change and staff at the facility noticed resistance when they attempted to place the Jose and then she had bleeding after the attempt. Patient is unsure how much bleeding because she never saw the bleeding. She reports pain at the urethra. She denies fever, chills, abdominal pain, nausea, vomiting, hematuria or diarrhea. No decreased urinary output. PAST MEDICAL HISTORY Diagnosis Date - Back pain - Foot ulcer (HCC) - Generalized weakness - Hip pain - Hyperlipemia - Hypertension - Morbid obesity (HCC) - Muscle spasm of back - Osteoarthritis - PAF (paroxysmal atrial fibrillation) ([facility]) - Rotator cuff tear - Stroke ([facility]) - Type 2 diabetes mellitus with hyperglycemia ([facility]) PAST SURGICAL HISTORY Procedure Laterality Date - APPENDECTOMY - BLADDER SURGERY HX - TONSILLECTOMY HX - TUBAL LIGATION HX FAMILY HISTORY Problem Relation Age of Onset - Heart Mother - Diabetes Mother - Stroke Father - Cancer Other - Osteoporosis Other Social History Tobacco Use - Smoking status: Never Smoker - Smokeless tobacco: Never Used Substance and Sexual Activity - Alcohol use: No - Drug use: No - Sexual activity: Not Currently ALLERGIES No Known Allergies Review of Systems Constitutional: Negative for chills and fever. HENT: Negative for congestion and sore throat. Eyes: Negative for pain and redness. Respiratory: Negative for cough and shortness of breath. Cardiovascular: Negative for chest pain and leg swelling. Gastrointestinal: Negative for abdominal pain and nausea. Genitourinary: Negative for decreased urine volume, dysuria, hematuria, pelvic pain, vaginal bleeding and vaginal pain. Musculoskeletal: Negative for back pain and neck pain. Skin: Negative for pallor and rash. Neurological: Negative for light-headedness and headaches. Physical Exam BP 145/60 Pulse 54 Temp (Src) 98.1 (Oral) Resp 20 Ht 5' 7" (1.70m) Wt 423 lb (191.9kg) SpO2 97% BMI 66.24 kg/(m2). O2 Therapy: Room Air Physical Exam Constitutional: She appears well-developed and well-nourished. In no acute distress. HENT: Head: Normocephalic and atraumatic. Mouth/Throat: Oropharynx is clear and moist. Eyes: Conjunctivae and EOM are normal. Neck: Normal range of motion. Neck supple. Cardiovascular: Normal rate, regular rhythm, normal heart sounds and intact distal pulses. Pulmonary/Chest: Effort normal and breath sounds normal. Lungs clear to auscultation bilaterally. Abdominal: Soft. Bowel sounds are normal. She exhibits no distension. There is no tenderness. Obese. Genitourinary: Genitourinary Comments: Small superficial laceration on the 6 o clock positive of the urethral meatus. No active bleeding. No external vaginal bleeding. Neurological: She is alert. Oriented. Moving all 4 externally spontaneously. Skin: Skin is warm and dry. Capillary refill takes less than 2 seconds. Nursing note and vitals reviewed. Diagnostic Testing ED Labs Ordered and Reviewed - No data to display Results for orders placed or performed during the hospital encounter of 08/16/18 URINALYSIS WITH MICROSCOPIC (AK,AV,EU,FV,HL,PRIYA,MM,SP) Result Value Ref Range Color DK YELLOW Urine Appearance CLOUDY Glucose, Urine NEGATIVE Negative mg/dL Ketones, Urine NEGATIVE Negative mg/dL Hemoglobin, Urine LARGE (A) Negative Protein, Urine 30 (A) Negative mg/dL Nitrites Urine NEGATIVE Negative Bilirubin, Urine see below (A) Negative Specific [place], Ur 1.021 1.005 - 1.030 pH, Urine 5.0 5.0 - 8.0 Urobilinogen, Urine 0.2 0.2 - 1.0 EU/dL Leukocytes Esterase LARGE (A) Negative RBC, Urine 7.0-12 (H) 0.0 - 5.0 /hpf WBC, Urine 145.1 (H) 0.0 - 5.0 /hpf EP Cells Urine 0.6 0.0 - 5.0 /hpf Bacteria, Urine NONE None Hyaline Cast 4.5 (H) 0.0 - 1.0 /lpf Procedures ED Course / Clinical Impression ED Course as of Aug 16 1441 Adriana (Harish Charles's Documentation Fri August 16, 2018 1030 I spoke with urology who will come down and evaluate the patient. 1051 Urology placed jose. UA and urine culture ordered. 1131 WBC, Urine: (!) 145.1 1131 Leukocytes Esterase: (!) LARGE Clinical Impressions as of Aug 16 1441 Problem with Jose catheter, initial encounter (HCC) Cystitis MDM / Disposition / Plan 67-year-old female presenting to the emergency department for Jose catheter problem. The patient was seen and evaluated by myself and the attending physician. She is afebrile. Vital signs are stable. There is no active signs of bleeding on my exam. See above for pertinent physical exam findings. Nursing staff attempted Jose catheter insertion and resistance was met. Urology consult placed. They were able to place a Jose catheter. UA is positive for leukocyte esterase and wbc's. Urine was sent for culture. Given her prior history of UTI and sepsis, she will be placed on a course of antibiotics. She is started on Keflex as her prior urine culture reveals sensitivity to this. Patient is given her first dose in the emergency department. She is provided a prescription for her nursing facility to fill and continue administering this until her urine culture results. She is provided return precautions and voiced understanding. The patient was discharged in stable condition. SIGNATURE: DO Adriana Craig (Res) DO Araceli Resident 08/16/18 1445 Christina Cuenca MD 08/16/182027 Normal [facility] Urinalysis Routineon 019 RBC LM.HPF (Urine sed) [#/Area] 7.0-12 High 0.0-5.0 [facility] Comment on above: Performed By: #### G FR #### [place] [address] Bacteria LM.HPF (Urine sed) [#/Area] NONE Normal None [facility] Comment on above: Performed By: #### G FR #### [place] [address] Ep Cells Urine 0.6 /hpf Normal 0.0-5.0 [facility] Comment on above: Performed By: #### G FR #### [place] [address] Hyaline Cast 4.5 /lpf High 0.0-1.0 [facility] Comment on above: Performed By: #### G FR #### [address] [address] WBC LM.HPF (Urine sed) [#/Area] 145.1 /[HPF] High 0.0-5.0 [facility] Comment on above: Performed By: #### G FR #### [address] [address] Appearance (U) CLOUDY Normal [facility] Comment on above: Performed By: #### G FR #### [place] [address] Bilirubin (U) [Mass/Vol] see below Abnormal Negative [facility] Comment on above: Result Comment: Dete cted (Unable to confirm). Performed By: #### G FR #### [facility] [address] [place] [address] Color (U) DK YELLOW Normal [facility] Comment on above: Performed By: #### G FR #### [facility] [address] [place] [address] Glucose Ql (U) Negative Normal Negative [facility] Comment on above: Performed By: #### G FR #### [facility] [address] [place] [address] Hemoglobin,Urine LARGE Abnormal Negative [facility] Comment on above: Performed By: #### G FR #### [place] [address] Ketone Urine Negative Normal Negative [facility] Comment on above: Performed By: #### G FR #### [place] [address] Leukocytes Esterase LARGE Abnormal Negative [facility] Comment on above: Performed By: #### G FR #### [place] [address] Nitrites Urine Negative Normal Negative [facility] Comment on above: Performed By: #### G FR #### [place] [address] pH (U) 5.0 [pH] Normal 5.0-8.0 [facility] Comment on above: Performed By: #### G FR #### [place] [address] Protein (U) [Mass/Vol] 30 mg/dL Abnormal Negative [facility] Comment on above: Performed By: #### G FR #### [facility] [address] [place] [address] Specific [place], Ur 1.021 Normal 1.005-1.030 [facility] Comment on above: Performed By: #### G FR #### [facility] [address] [place] [address] Urobilinogen,Ur 0.2 EU/dL Normal 0.2-1.0 [facility] Comment on above: Performed By: #### G FR #### [address] [place], [place] [address] Basic Panelon 07-09-2018 Creatinine [Mass/Vol] 0.74 mg/dL Normal 0.51-0.95 [facility] Comment on above: Performed By: #### G FR #### [facility] [address] [place], [place] [address] Anion gap [Moles/Vol] 8 mmol/L Normal 8-16 [facility] Comment on above: Performed By: #### G FR #### [facility] [address] [place], [place] [address] Calcium [Mass/Vol] 8.2 mg/dL Low 8.5-10.1 [facility] Comment on above: Performed By: #### G FR #### [facility] [address] [place], [place] [address] CO2 [Moles/Vol] 32 mmol/L Normal 21-32 [facility] Comment on above: Performed By: #### G FR #### [facility] [address] [place], [place] [address] Glucose [Mass/Vol] 148 mg/dL High 70-99 [facility] Comment on above: Performed By: #### G FR #### [facility] [address] [place], [place] [address] Urea nitrogen [Mass/Vol] 11 mg/dL Normal 7-18 [facility] Comment on above: Performed By: #### G FR #### [facility] [address] [place], [place] [address] Chloride [Moles/Vol] 106 mmol/L Normal 98-107 [facility] Comment on above: Performed By: #### G FR #### [facility] [address] [place], [place] [address] Potassium [Moles/Vol] 4.0 mmol/L Normal 3.5-5.1 [facility] Comment on above: Performed By: #### G FR #### [facility] [address] [place], [place] [address] Sodium [Moles/Vol] 142 mmol/L Normal 136-145 [facility] Comment on above: Performed By: #### G FR #### [address] [address] CASE MANAGEMon 07-09-2018 CASE MANAGEM HNO ID: [id number] Author: Sivan (Rn) MATHEUS Matthews Service: Care Management Author Type: Registered Nurse Type: Care Mgt Progress Note Filed: 07/09/2018 9:49 AM Note Text: CARE MANAGEMENT DISCHARGE NOTE SERVICE DATE: 07/09/2018 SERVICE TIME: 9:46 AM LOS: 7 days Admission Date: 07/02/2018 DISCHARGE ARRANGEMENT (list agency and phone number) Return to fpc Provider: Kat Rubio CAREGIVER ASSESSMENT: Caregiver is ready, willing and able to meet the patient's needs as recommended by the inter-professional team? Yes Patient's transition needs and plan for meeting these needs: SNF Does the patient have an acute stroke diagnosis, or has the patient had a stroke during this admission? No HANDOFF COMMUNICATION: RN to call report TRANSPORTATION ARRANGEMENTS: Mode of Transportation: Ambulance Transportation Agency and Phone #: [facility] ( [facility] ) [phone] / [phone]. Date of Trip: 07/19/2018 Type of Service: Bariatric BLS Non-emergency Is Patient Medicaid Pending: No Discussion of financial coverage occurred with Patient . Jewel Lathe Operator Location: [place] [address] Destination: SNF Financial Care Management Responsibility: None Estimated Charge: NA Approving Flask Carrier: GIGI ADDITIONAL CONTACT RESOURCES: none Discharge Information Row Name ED to Hosp-Admission (Current) from 07/02/2018 in [place] [address] CV MED/SURG [facility] [place] [address] Patient has been discharged. [facility] transporting patient via cot to [facility]. Patient aware of plan and in agreement. SIGNATURE: Sivan Matthews RN PATIENT NAME: Salazar Coyle DATE: July 09, 2018 TIME: 9:46 AM PAGER/CONTACT #: [phone] Normal [facility] Glucose Meteron 07-09-2018 Glucose [Mass/Vol] 123 mg/dL High 70-99 [facility] Comment on above: Result Comment: RN N OTIFIED Performed By: #### C BC1 #### [address], [place] [address] Hemogramon 07-09-2018 Erythrocyte distribution width (RBC) [Ratio] 14.9 % High 11.7-14.4 [facility] Comment on above: Performed By: #### G FR #### [facility] [address] [place], [place] [address] Hematocrit (Bld) [Volume fraction] 31.2 % Low 34.1-44.9 [facility] Comment on above: Performed By: #### G FR #### [facility] [address] [place] [address] Hemoglobin (Bld) [Mass/Vol] 9.7 g/dL Low 11.2-15.7 [facility] Comment on above: Performed By: #### G FR #### [facility] [address] [place] [address] MCH (RBC) [Entitic mass] 31.0 pg Normal 25.6-32.2 [facility] Comment on above: Performed By: #### G FR #### [facility] [address] [place] [address] MCHC (RBC) [Mass/Vol] 31.1 % Low 31.6-34.8 [facility] Comment on above: Performed By: #### G FR #### [facility] [address] [place] [address] MCV (RBC) [Entitic vol] 99.7 fL High 79.4-94.8 [facility] Comment on above: Performed By: #### G FR #### [facility] [address] [place] [address] Platelet mean volume (Bld) [Entitic vol] 11.9 fL Normal 9.4-12.3 [facility] Comment on above: Performed By: #### G FR #### [facility] [address] [place], [place] [address] Platelets (Bld) [#/Vol] 178 thou/cmm Low 182-369 [facility] Comment on above: Performed By: #### G FR #### [facility] [address] [place] [address] RBC (Bld) [#/Vol] 3.13 mil/cmm Low 3.93-5.22 [facility] Comment on above: Performed By: #### G FR #### [facility] [address] [place], [place] [address] RDW SD 54.4 fl High 36.4-46.3 [facility] Comment on above: Performed By: #### G FR #### [facility] [address] [place], [place] [address] WBC (Bld) [#/Vol] 6.77 thou/cmm Normal 3.98-10.04 [facility] Comment on above: Performed By: #### G FR #### [facility] [address] [place], [place] [address] MDRD GFRon 07-09-2018 GFR/1.73 sq M predicted among non-blacks MDRD (S/P/Bld) [Vol rate/Area] mL/min/{1.73_m2} Normal >60mL/min/1 .73m2 [facility] Comment on above: Result Comment: If t he patient is , multiply the result by 1.210. Performed By: #### G FR #### [facility] [address] [place] [id number] Protimeon 07-09-2018 INR Coag (PPP) [Relative time] 1.16 {INR} Normal 0.90-1.30 [facility] Comment on above: Result Comment: Nerissa min K Antagonist (VKA) Therapeutic Range: INR 2 to 3 (Target INR of 2.5) Note: For patients treated with VKA drugs, such as warfarin, the [employer] 2012 Guideline recommends a therapeutic INR range of 2 to 3 (target INR of 2.5). This recommendation includes high-risk patients with antiphospholipid syndrome with previous arterial or venous thromboembolism, current-generation mechanical or bioprosthetic aortic heart valve replacement. VKA Therapeutic Range for some Mechanical Valve Replacement: INR 2.5 to 3.5 (Target INR of 3) Note: Patients with mechanical aortic valve replacement and additional risk factors for thromboembolic events (atrial fibrillation, previous thromboembolism, LV dysfunction, hypercoagulable conditions) or an older generation mechanical AVR (i.e., ball in-Cage) or any mechanical MVR should have a INR therapeutic range of 2.5 to 3.5 target INR of 3). Alexis GH, et al. Chest 2012; 141:7S-47S Pete RA et al. [facility] 2017; 70: 252-289 Performed By: #### G FR #### [facility] [address] [place], [place] [address] PT Coag (PPP) [Time] 11.9 s Normal 9.7-13.0 [facility] Comment on above: Performed By: #### G FR #### [address] [address] Basic Panelon 07-08-2018 Creatinine [Mass/Vol] 0.70 mg/dL Normal 0.51-0.95 [facility] Comment on above: Performed By: #### G FR #### [address] [address] Anion gap [Moles/Vol] 5 mmol/L Low 8-16 [facility] Comment on above: Performed By: #### G FR #### [facility] [address] [place], [place] [address] CO2 [Moles/Vol] 33 mmol/L High 21-32 [facility] Comment on above: Performed By: #### G FR #### [facility] [address] [place], [place] [address] Urea nitrogen [Mass/Vol] 13 mg/dL Normal 7-18 [facility] Comment on above: Performed By: #### G FR #### [facility] [address] [place], [place] [address] Calcium [Mass/Vol] 8.1 mg/dL Low 8.5-10.1 [facility] Comment on above: Performed By: #### G FR #### [facility] [address] [place], [place] [address] Glucose [Mass/Vol] 177 mg/dL High 70-99 [facility] Comment on above: Performed By: #### G FR #### [address] [address] Chloride [Moles/Vol] 107 mmol/L Normal 98-107 [facility] Comment on above: Performed By: #### G FR #### [facility] [address] [place], [place] [address] Potassium [Moles/Vol] 4.1 mmol/L Normal 3.5-5.1 [facility] Comment on above: Performed By: #### G FR #### [facility] [address] [place], [place] [address] Sodium [Moles/Vol] 141 mmol/L Normal 136-145 [facility] Comment on above: Performed By: #### G FR #### [facility] [address] [place], [place] [address] CASE MANAGEMon 07-08-2018 CASE MANAGEM HNO ID: [id number] Author: Sivan (Rn) MATHEUS Matthews Service: Care Management Author Type: Registered Nurse Type: Care Mgt Progress Note Filed: 07/08/2018 5:23 PM Note Text: CARE MANAGEMENT PROGRESS NOTE SERVICE DATE: 07/08/2018 SERVICE TIME: 5:03 PM LOS: 6 days Mgr Mari Care Management, myself, and patient had a lengthy conversation regarding planned discharge. Patient cited several concerns which were addressed and patient now agreeable to discharge. Due to late anticipated discharge time this evening, transportation has been scheduled for 9:30 am 07/09. Patient and RN aware. SIGNATURE: Sivan Matthews RN PATIENT NAME: Salazar Coyle DATE: July 08, 2018 TIME: 5:03 PM PAGER/CONTACT #: [phone] Normal [facility] Hemogramon 07-08-2018 Erythrocyte distribution width (RBC) [Ratio] 14.7 % High 11.7-14.4 [facility] Comment on above: Performed By: #### G FR #### [facility] [address] [place], [place] [address] Hematocrit (Bld) [Volume fraction] 32.8 % Low 34.1-44.9 [facility] Comment on above: Performed By: #### G FR #### [facility] [address] [place], [place] [address] Hemoglobin (Bld) [Mass/Vol] 10.0 g/dL Low 11.2-15.7 [facility] Comment on above: Performed By: #### G FR #### [facility] [address] [place] [address] MCH (RBC) [Entitic mass] 30.2 pg Normal 25.6-32.2 [facility] Comment on above: Performed By: #### G FR #### [facility] [address] [place] [address] MCHC (RBC) [Mass/Vol] 30.5 % Low 31.6-34.8 [facility] Comment on above: Performed By: #### G FR #### [facility] [address] [place] [address] MCV (RBC) [Entitic vol] 99.1 fL High 79.4-94.8 [facility] Comment on above: Performed By: #### G FR #### [facility] [address] [place] [address] Platelet mean volume (Bld) [Entitic vol] 12.2 fL Normal 9.4-12.3 [facility] Comment on above: Performed By: #### G FR #### [facility] [address] [place] [address] Platelets (Bld) [#/Vol] 144 thou/cmm Low 182-369 [facility] Comment on above: Performed By: #### G FR #### [facility] [address] [place] [address] RBC (Bld) [#/Vol] 3.31 mil/cmm Low 3.93-5.22 [facility] Comment on above: Performed By: #### G FR #### [facility] [address] [place] [address] RDW SD 53.6 fl High 36.4-46.3 [facility] Comment on above: Performed By: #### G FR #### [facility] [address] [place] [address] WBC (Bld) [#/Vol] 6.50 thou/cmm Normal 3.98-10.04 [facility] Comment on above: Performed By: #### G FR #### [place] [address] PLAN OF CAREon 07-08-2018 PLAN OF CARE HNO ID: [id number] Author: Eduardo Bradford (Pharmacist) Service: Pharmacy Author Type: Pharmacist Type: Plan of Care Filed: 07/08/2018 1:05 PM Note Text: DISCHARGE MEDICATION REVIEW BY PHARMACY Patient Name: Salazar Coyle Account #: Data Unavailable Admission Date: 07/02/2018 Date of Contact: July 08, 2018 Time of Contact: 1:05 PM Medication list was reviewed by a Pharmacist for drug interactions or drug related problems:Yes Below is a summary of pharmacist recommendations discussed with LIP: No Recommendations at this time from Discharge Medication List. EDUARDO BRADFORD, PHARMACIST July 08, 2018 1:05 PM Pager: [phone] 07/08/2018 1:05 PM Medication List START taking these medications warfarin 5 mg tablet Commonly known as: COUMADIN Take 1 tablet by mouth daily as directed. CHANGE how you take these medications acetaminophen 325 mg tablet Commonly known as: TYLENOL Take 2 tablets by mouth every 4 hours as needed. What changed: ? medication strength ? how much to take ? when to take this * MICONAZORB AF 2 % powder Generic drug: miconazole What changed: Another medication with the same name was changed. Make sure you understand how and when to take each. * miconazole 2 % cream Commonly known as: MONISTAT-DERMMAY Apply 1 application to affected area twice daily. What changed: additional instructions * This list has 2 medication(s) that are the same as other medications prescribed for you. Read the directions carefully, and ask your doctor or other care provider to review them with you. CONTINUE taking these medications albuterol 2.5 mg /3 mL (0.083 %) nebulizer solution Commonly known as: PROVENTIL Use 3 mL via nebulizer every 4 hours as needed for Wheezing/Shortness of Breath. amitriptyline 25 mg tablet Commonly known as: ELAVIL atorvastatin 40 mg tablet Commonly known as: LIPITOR Take 1 tablet by mouth daily at bedtime. baclofen 10 mg tablet Commonly known as: SHANTI GONZALESAGLBETTIE MCDOWELL U-100 INSULIN 100 unit/mL (3 mL) Inpn Generic drug: insulin glargine bisacodyl 10 mg Supp Commonly known as: DULCOLAX cyclobenzaprine 10 mg tablet Commonly known as: FLEXERIL CYMBALTA 60 mg capsule Generic drug: DULoxetine gabapentin 600 mg tablet Commonly known as: NEURONTIN * insulin lispro 100 unit/mL Inpn Commonly known as: HumaLOG KWIKPEN Inject 15 Units subcutaneously three times daily before meals. * insulin lispro 100 unit/mL pen Commonly known as: HumaLOG KWIKPEN Inject 0-10 Units subcutaneously three times daily before meals. If Blood Glucose (mg/dL) is: Less than 110 Give 0 units 111-150 Give 0 units 151-200 Give 2 units 201-250 Give 4 units 251-300 Give 6 units 301-350 Give 8 units 351-400 Give 10 units Greater than 400 Give 10 units and Notify Provider lidocaine 5 % Commonly known as: LIDODERM metoprolol tartrate (short acting) 25 mg tablet Commonly known as: LOPRESSOR Take 0.5 tablets by mouth every 12 hours. MULTIVITAL ORAL oxyCODONE IR 10 mg Tab Commonly known as: ROXICODONE * This list has 2 medication(s) that are the same as other medications prescribed for you. Read the directions carefully, and ask your doctor or other care provider to review them with you. STOP taking these medications amLODIPine 5 mg tablet Commonly known as: NORVASC ELIQUIS 5 mg tab(s) Generic drug: apixaban losartan 100 mg tablet Commonly known as: COZAAR Normal [facility] PROGRESSon 07-08-2018 PROGRESS HNO ID: [id number] Author: Susan Greco Service: Hospital Medicine Author Type: Physician Type: Progress Notes Filed: 07/08/2018 3:15 PM Note Text: Earlier I told pt that she is stable for discharge- She does not need further hospitalization CM notified me that she is refusing discharge [facility] PROGRESS HNO ID: [id number] Author: Susan Greco Service: Hospital Medicine Author Type: Physician Type: Progress Notes Filed: 07/08/2018 12:19 PM Note Text: INTERNAL MEDICINE PROGRESS NOTE SERVICE DATE: 07/08/2018 SERVICE TIME: 9:20 AM. Seen at 12:10 p ADMITTING PHYSICIAN: Tiffanie Zacarias Subjective CHIEF COMPLAINT: f/u medical issues listed below Current Facility-Administered Medications Medication Dose Route Frequency - baclofen 10 mg tab(s) (LIORESAL) 10 mg ORAL TID - cyclobenzaprine 10 mg tab(s) (FLEXERIL) 10 mg ORAL q 8 H PRN - amitriptyline 25 mg tab(s) (ELAVIL) 25 mg ORAL AT BEDTIME - gabapentin 600 mg cap(s) (NEURONTIN) 600 mg ORAL QID - cefTRIAXone iv piggyback 2 g in dextrose (iso-osmotic) 50 mL (ROCEPHIN) 2 g INTRAVENOUS q 24 H - insulin glargine 50 Units pen (long acting) (LANTUS SOLOSTAR, BASAGLAR KWIKPEN) 50 Units SUBCUTANEOUS AT BEDTIME - insulin lispro 5 Units pen (rapid acting) (HumaLOG KWIKPEN) 5 Units SUBCUTANEOUS w MEALS - insulin lispro pen (rapid acting) (HumaLOG KWIKPEN) SUBCUTANEOUS w MEALS - metoprolol tartrate (short acting) 12.5 mg tab(s) (LOPRESSOR) 12.5 mg ORAL q 12 H - pill splitter (patient-specific) 1 Each Miscell. (Med.Supl.;Non-Drugs) PRN - miconazole 2 % 1 application (MONISTAT-DERM,MAY) 1 application TOPICAL BID - miconazole 2 % 1 application topical powder (LOTRIMIN AF, DESENEX) 1 application TOPICAL BID - fentaNYL 50 mcg/mL 25 mcg injection (SUBLIMAZE) 25 mcg INTRAVENOUS q 2 H PRN - acetaminophen 650 mg tab(s) (TYLENOL) 650 mg ORAL q 4 H PRN - potassium chloride 40 mEq oral powder (KLOR-CON) 40 mEq ORAL/FEEDING TUBE PRN - potassium chloride iv piggyback 20 mEq/100 mL 20 mEq INTRAVENOUS PRN - sodium glycerophosphate 45 mmol in NaCl 0.9% 250 mL (GLYCOPHOS) 45 mmol INTRAVENOUS PRN - calcium gluconate 4 g in NaCl 0.9% 250 mL 4 g INTRAVENOUS PRN - atorvastatin 40 mg tab(s) (LIPITOR) 40 mg ORAL AT BEDTIME - albuterol 2.5 mg /3 mL (0.083 %) 2.5 mg (PROVENTIL) 2.5 mg INHALATION q 4 H PRN - bisacodyl 10 mg suppository (DULCOLAX) 10 mg RECTAL DAILY PRN - DULoxetine 60 mg cap(s) (CYMBALTA) 60 mg ORAL DAILY - NaCl 0.9% 10 mL 10 mL INTRAVENOUS q 12 H - NaCl 0.9% 20 mL 20 mL INTRAVENOUS PRN - dextrose 40 % 15 g 15 g ORAL PRN Or - glucagon 1 mg injection (GLUCAGEN) 1 mg INTRAMUSCULAR PRN Or - dextrose 50% in water 25 mL syringe 12.5 g INTRAVENOUS PRN INTERVAL HISTORY OF PRESENT ILLNESS: no new issues Objective PHYSICAL EXAM: Patient Vitals for the past 24 hrs: BP Temp Temp src Pulse Resp SpO2 Weight 07/08/18 0758 142/72 36.5 ?C (97.7 ?F) Oral 74 20 95 % ? 07/08/18 0746 ? (!) 183.6 kg (404 lb 12.8 oz) 07/08/18 0532 ? 18 ? ? 07/08/18 0437 130/62 36.5 ?C (97.7 ?F) Oral 82 18 100 % ? 07/08/18 0015 122/65 36.8 ?C (98.2 ?F) Oral 72 18 98 % ? 07/07/18 2145 ? 20 ? ? 07/07/18 2039 134/57 36.8 ?C (98.2 ?F) Oral 80 20 97 % ? 07/07/18 1533 ? 93 % ? 07/07/18 1531 126/52 36.8 ?C (98.2 ?F) Oral 66 20 92 % ? 07/07/18 1147 (!) 138/49 36.4 ?C (97.5 ?F) Oral 62 21 97 % ? Body mass index is 67.36 kg/m?. GENERAL: Alert, no distress, cooperative morbid obesity- SKIN: Skin color, texture, turgor normal. No rashes or lesions.- LUNGS: Lungs clear ant- CARDIAC: reg- ABDOMEN: Abdomen soft + jose- EXTREMITIES: no swelling- DATA: Diagnostic tests reviewed for today's visit: Significant findings were Assessment/Plan On 07/02/18 admitted by ICU for septic shock. Secondary to CAUTI. See ICU course. Pt required tx with levophed BP 68/48 Lactate 8.5 (H) Cr 1.35 (H): WHITLEY Troponin I 0.076 (H) BNP 2347 (H) Blood cultures +Proteus mirabilis-on abx UA +bacteria. Ucx contam # morbid obesity # DM # chronic pain. Pt receiving IV fentanyl for pain. Use tylenol for pain # a fib-metoprolol anticoagulate with Warfarin. INR 2-3 goal Do not use eliquis as The International Society on Thrombosis and Haemostasis (ISTH) 2016 guideline suggests avoiding the use of apixaban (and other direct oral anticoagulants) in patients with a BMI >40 kg/m2 or weight >120 kg due to the lack of clinical data in this population. DC today No need for fuether antibiotic treatment SIGNATURE: Susan Greco DO PATIENT NAME: Salazar Coyle DATE: July 08, 2018 TIME: 9:20 AM PAGER/CONTACT #: Marly [facility] Protimeon 07-08-2018 INR Coag (PPP) [Relative time] 1.06 {INR} Normal 0.90-1.30 [facility] Comment on above: Result Comment: Nerissa min K Antagonist (VKA) Therapeutic Range: INR 2 to 3 (Target INR of 2.5) Note: For patients treated with VKA drugs, such as warfarin, the [place] 2012 Guideline recommends a therapeutic INR range of 2 to 3 (target INR of 2.5). This recommendation includes high-risk patients with antiphospholipid syndrome with previous arterial or venous thromboembolism, current-generation mechanical or bioprosthetic aortic heart valve replacement. VKA Therapeutic Range for some Mechanical Valve Replacement: INR 2.5 to 3.5 (Target INR of 3) Note: Patients with mechanical aortic valve replacement and additional risk factors for thromboembolic events (atrial fibrillation, previous thromboembolism, LV dysfunction, hypercoagulable conditions) or an older generation mechanical AVR (i.e., ball in-Cage) or any mechanical MVR should have a INR therapeutic range of 2.5 to 3.5 target INR of 3). Alexis GH, et al. Chest 2012; 141:7S-47S Pete RA et al. [facility] 2017; 70: 252-289 Performed By: #### G #### [facility] [address] [place] [address] PT Coag (PPP) [Time] 11.0 s Normal 9.7-13.0 [facility] Comment on above: Performed By: #### G FR #### [facility] [address] [place], [place] [address] Activated PTTon 07-07-2018 aPTT Coag (Bld) [Time] 86.3 s Critically high 23.0-32. 4 [facility] Comment on above: Result Comment: Unfr actionated Heparin Therapeutic Ranges: Standard Heparin Nomogram: 53 to 78 seconds (anti-Xa level of 0.3 to 0.7 U/mL) Low Dose/ACS Nomogram: 49 to 67 seconds (anti-Xa level of 0.2 to 0.5 U/mL) Stroke Treatment Nomogram: 49 to 67 seconds (anti-Xa level of 0.2 to 0.5 U/mL) Note: The APTT therapeutic range has been determined for the current lot of laboratory APTT reagent in use throughout the [facility]. Performed By: #### G FR #### [place] [address] aPTT Coag (Bld) [Time] 46.1 s High 23.0-32.4 [facility] Comment on above: Result Comment: Unfr actionated Heparin Therapeutic Ranges: Standard Heparin Nomogram: 53 to 78 seconds (anti-Xa level of 0.3 to 0.7 U/mL) Low Dose/ACS Nomogram: 49 to 67 seconds (anti-Xa level of 0.2 to 0.5 U/mL) Stroke Treatment Nomogram: 49 to 67 seconds (anti-Xa level of 0.2 to 0.5 U/mL) Note: The APTT therapeutic range has been determined for the current lot of laboratory APTT reagent in use throughout the [facility]. Performed By: #### G FR #### [facility] [address] [place] [address] Basic Panelon 07-07-2018 Creatinine [Mass/Vol] 0.66 mg/dL Normal 0.51-0.95 [facility] Comment on above: Performed By: #### P BNP #### [facility] [address] [place] [address] Anion gap [Moles/Vol] 9 mmol/L Normal 8-16 [facility] Comment on above: Performed By: #### P BNP #### [facility] [address] [place], [place] [address] CO2 [Moles/Vol] 32 mmol/L Normal 21-32 [facility] Comment on above: Performed By: #### P BNP #### [facility] [address] [place], [place] [address] Glucose [Mass/Vol] 126 mg/dL High 70-99 [facility] Comment on above: Performed By: #### P BNP #### [facility] [address] [place], [place] [address] Urea nitrogen [Mass/Vol] 11 mg/dL Normal 7-18 [facility] Comment on above: Performed By: #### P BNP #### [facility] [address] [place] [address] Calcium [Mass/Vol] 8.2 mg/dL Low 8.5-10.1 [facility] Comment on above: Performed By: #### P BNP #### [facility] [address] [place] [address] Chloride [Moles/Vol] 105 mmol/L Normal 98-107 [facility] Comment on above: Performed By: #### P BNP #### [place] [address] Potassium [Moles/Vol] 3.6 mmol/L Normal 3.5-5.1 [facility] Comment on above: Performed By: #### P BNP #### [place] [address] Sodium [Moles/Vol] 142 mmol/L Normal 136-145 [facility] Comment on above: Performed By: #### P BNP #### [facility] [address] [place] [address] Hemogramon 07-07-2018 Erythrocyte distribution width (RBC) [Ratio] 14.7 % High 11.7-14.4 [facility] Comment on above: Performed By: #### P BNP #### [place] [address] Hematocrit (Bld) [Volume fraction] 31.8 % Low 34.1-44.9 [facility] Comment on above: Performed By: #### P BNP #### [facility] [address] [place] [address] Hemoglobin (Bld) [Mass/Vol] 10.1 g/dL Low 11.2-15.7 [facility] Comment on above: Performed By: #### P BNP #### [facility] [address] [place] [address] MCH (RBC) [Entitic mass] 31.2 pg Normal 25.6-32.2 [facility] Comment on above: Performed By: #### P BNP #### [place] [address] MCHC (RBC) [Mass/Vol] 31.8 % Normal 31.6-34.8 [facility] Comment on above: Performed By: #### P BNP #### [place] [address] MCV (RBC) [Entitic vol] 98.1 fL High 79.4-94.8 [facility] Comment on above: Performed By: #### P BNP #### [place] [address] Platelet mean volume (Bld) [Entitic vol] 12.2 fL Normal 9.4-12.3 [facility] Comment on above: Performed By: #### P BNP #### [place] [address] Platelets (Bld) [#/Vol] 119 thou/cmm Low 182-369 [facility] Comment on above: Performed By: #### P BNP #### [place] [address] RBC (Bld) [#/Vol] 3.24 mil/cmm Low 3.93-5.22 [facility] Comment on above: Performed By: #### P BNP #### [place] [address] RDW SD 53.6 fl High 36.4-46.3 [facility] Comment on above: Performed By: #### P BNP #### [address] [place], [place] [address] WBC (Bld) [#/Vol] 6.85 thou/cmm Normal 3.98-10.04 [facility] Comment on above: Performed By: #### P BNP #### [facility] [address] [place], [place] [address] PROGRESSon 07-07-2018 PROGRESS HNO ID: [id number] Author: Susan Greco Service: Hospital Medicine Author Type: Physician Type: Progress Notes Filed: 07/07/2018 10:59 PM Note Text: INTERNAL MEDICINE PROGRESS NOTE SERVICE DATE: 07/07/2018 SERVICE TIME: 2:59 PM ADMITTING PHYSICIAN: Tiffanie Zacarias Subjective CHIEF COMPLAINT: f/u medical issues listed below Current Facility-Administered Medications Medication Dose Route Frequency - baclofen 10 mg tab(s) (LIORESAL) 10 mg ORAL TID - cyclobenzaprine 10 mg tab(s) (FLEXERIL) 10 mg ORAL q 8 H PRN - amitriptyline 25 mg tab(s) (ELAVIL) 25 mg ORAL AT BEDTIME - gabapentin 600 mg cap(s) (NEURONTIN) 600 mg ORAL QID - cefTRIAXone iv piggyback 2 g in dextrose (iso-osmotic) 50 mL (ROCEPHIN) 2 g INTRAVENOUS q 24 H - insulin glargine 50 Units pen (long acting) (LANTUS SOLOSTAR, BASAGLAR KWIKPEN) 50 Units SUBCUTANEOUS AT BEDTIME - insulin lispro 5 Units pen (rapid acting) (HumaLOG KWIKPEN) 5 Units SUBCUTANEOUS w MEALS - insulin lispro pen (rapid acting) (HumaLOG KWIKPEN) SUBCUTANEOUS w MEALS - metoprolol tartrate (short acting) 12.5 mg tab(s) (LOPRESSOR) 12.5 mg ORAL q 12 H - pill splitter (patient-specific) 1 Each Miscell. (Med.Supl.;Non-Drugs) PRN - miconazole 2 % 1 application (MONISTAT-DERM,MAY) 1 application TOPICAL BID - miconazole 2 % 1 application topical powder (LOTRIMIN AF, DESENEX) 1 application TOPICAL BID - fentaNYL 50 mcg/mL 25 mcg injection (SUBLIMAZE) 25 mcg INTRAVENOUS q 2 H PRN - acetaminophen 650 mg tab(s) (TYLENOL) 650 mg ORAL q 4 H PRN - potassium chloride 40 mEq oral powder (KLOR-CON) 40 mEq ORAL/FEEDING TUBE PRN - potassium chloride iv piggyback 20 mEq/100 mL 20 mEq INTRAVENOUS PRN - sodium glycerophosphate 45 mmol in NaCl 0.9% 250 mL (GLYCOPHOS) 45 mmol INTRAVENOUS PRN - calcium gluconate 4 g in NaCl 0.9% 250 mL 4 g INTRAVENOUS PRN - atorvastatin 40 mg tab(s) (LIPITOR) 40 mg ORAL AT BEDTIME - albuterol 2.5 mg /3 mL (0.083 %) 2.5 mg (PROVENTIL) 2.5 mg INHALATION q 4 H PRN - bisacodyl 10 mg suppository (DULCOLAX) 10 mg RECTAL DAILY PRN - DULoxetine 60 mg cap(s) (CYMBALTA) 60 mg ORAL DAILY - NaCl 0.9% 10 mL 10 mL INTRAVENOUS q 12 H - NaCl 0.9% 20 mL 20 mL INTRAVENOUS PRN - dextrose 40 % 15 g 15 g ORAL PRN Or - glucagon 1 mg injection (GLUCAGEN) 1 mg INTRAMUSCULAR PRN Or - dextrose 50% in water 25 mL syringe 12.5 g INTRAVENOUS PRN - heparin iv infusion (LOW DOSE ACS/NOMOGRAM) 25,000 units in NaCl 0.45% 250 mL PREMIX 0-3,000 Units/hr INTRAVENOUS CONTINUOUS And - heparin RATE CHANGE bolus 1,000-4,000 Units for subtherapeutic aptt results 1,000-4,000 Units INTRAVENOUS PRN INTERVAL HISTORY OF PRESENT ILLNESS: C/o pain "all over". Has chronic pain Objective PHYSICAL EXAM: Patient Vitals for the past 24 hrs: BP Temp Temp src Pulse Resp SpO2 Weight 07/07/18 1147 (!) 138/49 36.4 ?C (97.5 ?F) Oral 62 21 97 % ? 07/07/18 0900 ? (!) 187.2 kg (412 lb 9.6 oz) 07/07/18 0843 ? 97 % ? 07/07/18 0842 120/64 36.3 ?C (97.3 ?F) Oral 68 20 97 % ? 07/07/18 0623 ? (!) 189.8 kg (418 lb 8 oz) 07/07/18 0515 144/65 36.5 ?C (97.7 ?F) Oral 72 18 100 % ? 07/07/18 0000 ? 18 ? ? 07/06/18 2337 129/60 36.8 ?C (98.2 ?F) Oral 72 18 98 % ? 07/06/18 2150 ? 18 ? ? 07/06/18 2038 137/57 36.7 ?C (98.1 ?F) Oral 71 18 95 % ? 07/06/18 1547 120/50 36.5 ?C (97.7 ?F) Oral 71 18 93 % ? Body mass index is 68.66 kg/m?. GENERAL: Alert, no distress, cooperative morbid obese LUNGS: Lungs clear to auscultation.. CARDIAC: reg ABDOMEN: Abdomen soft EXTREMITIES:no swelling DATA: Diagnostic tests reviewed for today's visit: Significant findings were revd Assessment/Plan # Proteus mirabilis bacteremia-on ceftriaxone # UTI per UA # morbid obesity # chronic pain # DM2 # PAF SIGNATURE: Susan Greco DO PATIENT NAME: Salazar Coyle DATE: July 07, 2018 TIME: 2:59 PM PAGER/CONTACT #: Normal [facility] Protimeon 07-07-2018 INR Coag (PPP) [Relative time] 1.13 {INR} Normal 0.90-1.30 [facility] Comment on above: Result Comment: Nerissa min K Antagonist (VKA) Therapeutic Range: INR 2 to 3 (Target INR of 2.5) Note: For patients treated with VKA drugs, such as warfarin, the [place] 2012 Guideline recommends a therapeutic INR range of 2 to 3 (target INR of 2.5). This recommendation includes high-risk patients with antiphospholipid syndrome with previous arterial or venous thromboembolism, current-generation mechanical or bioprosthetic aortic heart valve replacement. VKA Therapeutic Range for some Mechanical Valve Replacement: INR 2.5 to 3.5 (Target INR of 3) Note: Patients with mechanical aortic valve replacement and additional risk factors for thromboembolic events (atrial fibrillation, previous thromboembolism, LV dysfunction, hypercoagulable conditions) or an older generation mechanical AVR (i.e., ball in-Cage) or any mechanical MVR should have a INR therapeutic range of 2.5 to 3.5 target INR of 3). Alexis BAKER, et al. Chest 2012; 141:7S-47S Pete RA et al. JACC 2017; 70: 252-289 Performed By: #### P BNP #### [facility] [address] [place], [place] [address] PT Coag (PPP) [Time] 11.6 s Normal 9.7-13.0 [facility] Comment on above: Performed By: #### P BNP #### [facility] [address] [place], [place] [address] Activated PTTon 07-06-2018 aPTT Coag (Bld) [Time] 61.4 s High 23.0-32.4 [facility] Comment on above: Result Comment: Unfr actionated Heparin Therapeutic Ranges: Standard Heparin Nomogram: 53 to 78 seconds (anti-Xa level of 0.3 to 0.7 U/mL) Low Dose/ACS Nomogram: 49 to 67 seconds (anti-Xa level of 0.2 to 0.5 U/mL) Stroke Treatment Nomogram: 49 to 67 seconds (anti-Xa level of 0.2 to 0.5 U/mL) Note: The APTT therapeutic range has been determined for the current lot of laboratory APTT reagent in use throughout the [facility]. Performed By: #### P BNP #### [place] [id number] Basic Panelon 07-06-2018 Creatinine [Mass/Vol] 0.60 mg/dL Normal 0.51-0.95 [facility] Comment on above: Performed By: #### P BNP #### [address] [address] Anion gap [Moles/Vol] 7 mmol/L Low 8-16 [facility] Comment on above: Performed By: #### P BNP #### [address] [address] CO2 [Moles/Vol] 32 mmol/L Normal 21-32 [facility] Comment on above: Performed By: #### P BNP #### [place] [id number] Glucose [Mass/Vol] 150 mg/dL High 70-99 [facility] Comment on above: Performed By: #### P BNP #### [facility] [address] [place], [place] [address] Urea nitrogen [Mass/Vol] 11 mg/dL Normal 7-18 [facility] Comment on above: Performed By: #### P BNP #### [facility] [address] [place], [place] [address] Calcium [Mass/Vol] 7.9 mg/dL Low 8.5-10.1 [facility] Comment on above: Performed By: #### P BNP #### [place] [address] Chloride [Moles/Vol] 106 mmol/L Normal 98-107 [facility] Comment on above: Performed By: #### P BNP #### [place] [address] Potassium [Moles/Vol] 3.4 mmol/L Low 3.5-5.1 [facility] Comment on above: Performed By: #### P BNP #### [place] [address] Sodium [Moles/Vol] 142 mmol/L Normal 136-145 [facility] Comment on above: Performed By: #### P BNP #### [place] [address] Hemogramon 07-06-2018 Erythrocyte distribution width (RBC) [Ratio] 14.5 % High 11.7-14.4 [facility] Comment on above: Performed By: #### P BNP #### [address] [address] Hematocrit (Bld) [Volume fraction] 31.4 % Low 34.1-44.9 [facility] Comment on above: Performed By: #### P BNP #### [address] [address] Hemoglobin (Bld) [Mass/Vol] 9.9 g/dL Low 11.2-15.7 [facility] Comment on above: Performed By: #### P BNP #### [address] [place], [place] [address] MCH (RBC) [Entitic mass] 30.9 pg Normal 25.6-32.2 [facility] Comment on above: Performed By: #### P BNP #### [facility] [address] [place] [address] MCHC (RBC) [Mass/Vol] 31.5 % Low 31.6-34.8 [facility] Comment on above: Performed By: #### P BNP #### [place] [address] MCV (RBC) [Entitic vol] 98.1 fL High 79.4-94.8 [facility] Comment on above: Performed By: #### P BNP #### [place] [address] Platelet mean volume (Bld) [Entitic vol] 12.1 fL Normal 9.4-12.3 [facility] Comment on above: Performed By: #### P BNP #### [place] [address] Platelets (Bld) [#/Vol] 94 thou/cmm Low 182-369 [facility] Comment on above: Result Comment: Repe ated AND verified Performed By: #### P BNP #### [place] [address] RBC (Bld) [#/Vol] 3.20 mil/cmm Low 3.93-5.22 [facility] Comment on above: Performed By: #### P BNP #### [place] [address] RDW SD 52.8 fl High 36.4-46.3 [facility] Comment on above: Performed By: #### P BNP #### [place] [address] WBC (Bld) [#/Vol] 9.52 thou/cmm Normal 3.98-10.04 [facility] Comment on above: Performed By: #### P BNP #### [place] [address] PROGRESSon 07-06-2018 PROGRESS HNO ID: [id number] Author: Rizwan Fonseca Service: Hospital Medicine Author Type: Physician Type: Progress Notes Filed: 07/06/2018 5:45 PM Note Text: DEPARTMENT OF HOSPITAL MEDICINE [facility] [place] [facility] PROGRESS NOTE- HOSPITAL DAY 4 SERVICE DATE: 07/06/2018 8:26 AM Hospital Medicine/Primary Attending: Rizwan Fonseca, DO Patient Vitals for the past 24 hrs: BP Temp Temp src Pulse Resp SpO2 Weight 07/06/18 0600 ? (!) 194.2 kg (428 lb 2.1 oz) 07/06/18 0320 (!) 116/45 37.2 ?C (99 ?F) Oral 79 18 97 % ? 07/05/18 2311 (!) 109/45 36.8 ?C (98.2 ?F) Oral 77 18 97 % ? 07/05/18 1911 115/52 36.6 ?C (97.9 ?F) Axillary 97 16 99 % ? 07/05/18 1800 106/56 36.9 ?C (98.4 ?F) ? 95 16 98 % ? 07/05/18 1700 103/61 36.8 ?C (98.2 ?F) ? 113 15 98 % ? 07/05/18 1628 ? 36.8 ?C (98.2 ?F) ? 119 14 99 % ? 07/05/18 1600 103/61 36.8 ?C (98.2 ?F) ? 112 17 98 % ? 07/05/18 1542 108/59 ? ? (!) 139 ? ? ? 07/05/18 1500 98/58 36.9 ?C (98.4 ?F) ? 108 15 98 % ? 07/05/18 1412 ? (!) 33.8 ?C (92.8 ?F) ? (!) 137 17 100 % ? 07/05/18 1400 123/53 (!) 33.9 ?C (93 ?F) ? (!) 123 16 97 % ? 07/05/18 1300 102/61 (!) 34 ?C (93.2 ?F) ? 117 15 97 % ? 07/05/18 1223 ? (!) 34.4 ?C (93.9 ?F) ? (!) 125 15 95 % ? 07/05/18 1222 ? (!) 34.4 ?C (93.9 ?F) ? (!) 121 15 95 % ? 07/05/18 1221 ? (!) 34.5 ?C (94.1 ?F) ? (!) 121 15 95 % ? 07/05/18 1220 ? (!) 34.5 ?C (94.1 ?F) ? (!) 125 15 95 % ? 07/05/18 1218 ? (!) 34.5 ?C (94.1 ?F) ? 119 15 96 % ? 07/05/18 1200 114/71 (!) 34.4 ?C (93.9 ?F) ? (!) 127 17 97 % ? 07/05/18 1116 ? (!) 35.2 ?C (95.4 ?F) ? (!) 133 16 94 % ? 07/05/18 1112 ? (!) 35 ?C (95 ?F) ? (!) 133 18 89 % ? 07/05/18 1100 111/61 (!) 35.2 ?C (95.4 ?F) ? (!) 129 17 91 % ? 07/05/18 1049 110/60 (!) 34.9 ?C (94.8 ?F) ? (!) 130 17 97 % ? 07/05/18 1000 121/64 (!) 35.5 ?C (95.9 ?F) ? (!) 127 18 95 % ? 07/05/18 0945 123/55 (!) 35 ?C (95 ?F) ? (!) 135 17 97 % ? 07/05/18 0930 102/54 (!) 35 ?C (95 ?F) ? (!) 135 17 96 % ? 07/05/18 0926 ? (!) 35.1 ?C (95.2 ?F) ? (!) 135 17 96 % ? 07/05/18 0915 94/56 (!) 35 ?C (95 ?F) ? (!) 132 17 96 % ? 07/05/18 0900 136/77 (!) 35.6 ?C (96.1 ?F) ? 119 15 97 % ? 07/05/18 0858 131/74 (!) 35.9 ?C (96.6 ?F) ? (!) 133 17 97 % ? 07/05/18 0856 ? (!) 35.9 ?C (96.6 ?F) ? (!) 133 17 96 % ? 07/05/18 0845 122/53 (!) 35.8 ?C (96.4 ?F) ? (!) 131 16 97 % ? 07/05/18 0830 118/56 (!) 35.7 ?C (96.3 ?F) ? 117 17 97 % ? 07/05/18 0827 122/66 (!) 35.7 ?C (96.3 ?F) ? 120 14 97 % ? Intake/Output 07/02/18 0700 - 07/03/18 0659 07/03/18 07 - 07/04/18 0659 07/04/18 07 - 07/05/18 0659 07/05/18 0700 - 07/06/18 0659 07/06/18 0700 - 07/07/18 0659 Intake (ml) 2648.8 4952.8 2488.4 780.1 -- Output (ml) 675 3590 5120 820 260 Net (ml) 1973.8 1362.8 -2631.6 -39.9 -260 Temp (24hrs), Av.4 ?C (95.8 ?F), Min:33.8 ?C (92.8 ?F), Max:37.2 ?C (99 ?F) Pain Level: 7 (07/05/18 2314) CHIEF COMPLAINT: Septic shock (HCC) OVERNIGHT EVENTS: Transferred from ICU to F 67 yo F with PMHx of multiple chronic medical conditions including Type 2 diabetes mellitus, morbid obesity, essential hypertension, chronic atrial fibrillation, chronic pain syndrome presented from [facility] for evaluation of altered mental status. The patient has a chronic indwelling jose catheter secondary to mobility issues and reportedly was recently diagnosed with a UTI at the [facility].?SNF staff sent UA and patient diagnosed with complicated UTI. ?NO antibiotics were started prior to transfer to ED. In ED, patient found to be in septic shock, NOT responsive to adequate fluid resuscitation with source of complicated UTI. ?Patient with WHITLEY in setting of UTI, Cr 1.35 (base 0.64), BUN 20. Patient with neutrophilic leukocytosis WBC 19.50. ?Lactic acid also elevated at 8.5. Patient started on broad spectrum IV abx, rocephin and vancomycin. ?Requiring pressor support via CVC. Cultures sent and pending at this time. While in ICU, abx were switched to only Rocephin. US DVT bilateral were negative. Patient's septic shock improved and she is now weaned off pressors. Her encephalopathy has also improved and she is AOx3. Her WHITLEY has improved. She is eating/drinking without difficulty and has had good urine output. She was started on Coumadin for her Afib and home eliquis was discontinued. She is stable to be transferred to [facility]. Recommend PHOEBE evaluation outpatient. INTERVAL HISTORY OF PRESENT ILLNESS: Patient seen and examined, chart reviewed -- Transferred from Unit after 4 day stay ( as above and Per Resident Physician Archinal) -- Reports Whole Body pain, but more Right sided pain than left -- Breathing OK REVIEW OF SYSTEMS All other systems negative. Objective PHYSICAL EXAM: GENERAL: Morbidly Obese, Alert, Cooperative. She has a very slow Pace of speech SKIN: Pale appearing, looks chronically sick OROPHARYNX: buccal mucosa normal NECK: No jugulovenous distention was able to be ascertained. RIght IJ remains in place. LUNGS: Very distant lung sounds based on body habitus. Cannot appreciate any wheezing CARDIAC: Distant tone. RRR ABDOMEN: Obese Examination. No Reboudm or rigifity EXTREMITIES: Holding her Right leg off the bed and Flexed. She does not want it examined as reports chronic extreme pain. Even discussing this causes her to scream out NEURO: Grossly normal cognition, motor function, and cranial nerves III-XII PULSES: 2+ radial, 2+ carotid Assessment/Plan Principal Problem: Septic shock (HCC) POA: Yes Assessment AND Plan: -- Resolved at this time -- Blood Cultures Positive for Barnes-Sensitive Proteus Active Problems: Type 2 diabetes mellitus with hyperglycemia ([facility]) POA: Yes Assessment AND Plan: --Continue on supplemental insulin as needed PAF (paroxysmal atrial fibrillation) ([facility]) POA: Yes Assessment AND Plan: -- Controlled -- Inititating warfarin Rx BMI 60.0-69.9, adult ([facility]) POA: Yes Assessment AND Plan: -- Certainly a massive issue related to her [facility] Patient noncompliant with anticoagulant medication POA: Yes Assessment AND Plan: -- Will need to address this going further WHITLEY (acute kidney injury) ([facility]) POA: Yes Assessment AND Plan: -- Improving. Related to severe Sepsis Acute encephalopathy POA: Yes Assessment AND Plan: --Resolving Resolved Problems: * No resolved hospital problems. * CODE STATUS: Full PLANNED DISPOSITION: Remains to be determined Plan of care discussed with: Patient and RN at bedside I spent 35 minutes in the visit, including chart review and discussion with other care providers, with more than 50% of the total [id number] time of the visit in counseling / coordination of care. Diagnostic tests reviewed for today's visit: Most recent labs LABS RADIOLOGY MEDICATIONS: Current Facility-Administered Medications Medication Dose Route Frequency - potassium chloride 40 mEq oral powder (KLOR-CON) 40 mEq ORAL/FEEDING TUBE PRN - potassium chloride iv piggyback 20 mEq/100 mL 20 mEq INTRAVENOUS PRN - sodium glycerophosphate 45 mmol in NaCl 0.9% 250 mL (GLYCOPHOS) 45 mmol INTRAVENOUS PRN - calcium gluconate 4 g in NaCl 0.9% 250 mL 4 g INTRAVENOUS PRN - atorvastatin 40 mg tab(s) (LIPITOR) 40 mg ORAL AT BEDTIME - albuterol 2.5 mg /3 mL (0.083 %) 2.5 mg (PROVENTIL) 2.5 mg INHALATION q 4 H PRN - bisacodyl 10 mg suppository (DULCOLAX) 10 mg RECTAL DAILY PRN - DULoxetine 60 mg cap(s) (CYMBALTA) 60 mg ORAL DAILY - NaCl 0.9% 10 mL 10 mL INTRAVENOUS q 12 H - NaCl 0.9% 20 mL 20 mL INTRAVENOUS PRN - dextrose 40 % 15 g 15 g ORAL PRN Or - glucagon 1 mg injection (GLUCAGEN) 1 mg INTRAMUSCULAR PRN Or - dextrose 50% in water 25 mL syringe 12.5 g INTRAVENOUS PRN - heparin iv infusion (LOW DOSE ACS/NOMOGRAM) 25,000 units in NaCl 0.45% 250 mL PREMIX 0-3,000 Units/hr INTRAVENOUS CONTINUOUS And - heparin RATE CHANGE bolus 1,000-4,000 Units for subtherapeutic aptt results 1,000-4,000 Units INTRAVENOUS PRN - miconazole 2 % 1 application (MONISTAT-DERM,MAY) 1 application TOPICAL BID - miconazole 2 % 1 application topical powder (LOTRIMIN AF, DESENEX) 1 application TOPICAL BID - fentaNYL 50 mcg/mL 25 mcg injection (SUBLIMAZE) 25 mcg INTRAVENOUS q 2 H PRN - acetaminophen 650 mg tab(s) (TYLENOL) 650 mg ORAL q 4 H PRN - baclofen 10 mg tab(s) (LIORESAL) 10 mg ORAL TID - cyclobenzaprine 10 mg tab(s) (FLEXERIL) 10 mg ORAL q 8 H PRN - amitriptyline 25 mg tab(s) (ELAVIL) 25 mg ORAL AT BEDTIME - gabapentin 600 mg cap(s) (NEURONTIN) 600 mg ORAL QID - cefTRIAXone iv piggyback 2 g in dextrose (iso-osmotic) 50 mL (ROCEPHIN) 2 g INTRAVENOUS q 24 H - insulin glargine 50 Units pen (long acting) (LANTUS SOLOSTAR, BASAGLAR KWIKPEN) 50 Units SUBCUTANEOUS AT BEDTIME - insulin lispro 5 Units pen (rapid acting) (HumaLOG KWIKPEN) 5 Units SUBCUTANEOUS w MEALS - insulin lispro pen (rapid acting) (HumaLOG KWIKPEN) SUBCUTANEOUS w MEALS - metoprolol tartrate (short acting) 12.5 mg tab(s) (LOPRESSOR) 12.5 mg ORAL q 12 H - pill splitter (patient-specific) 1 Each Miscell. (Med.Supl.;Non-Drugs) PRN Medications Discontinued During This Encounter Medication Reason - LANTUS SOLOSTAR 100 unit/mL (3 mL) inpn SMR Medication Re-entry - cyclobenzaprine (FLEXERIL) 10 mg tablet Dosage adjustment - bisacodyl (DULCOLAX) 10 mg supp Dosage adjustment - amoxicillin-clavulanic acid (AUGMENTIN) 875-125 mg per tablet Course of therapy completed - furosemide (LASIX) 40 mg tablet Discontinued by another Health Care Provider - losartan (COZAAR) 100 mg tablet Duplicate Entry - NOVOFINE 30 30 gauge x 1/3" ndle Erroneous entry - oxyCODONE-acetaminophen (PERCOCET) 7.5-325 mg tablet Discontinued by another Health Care Provider - polyethylene glycol 3350 (MIRALAX, GLYCOLAX) 17 gram packet Discontinued by another Health Care Provider - SIMVASTATIN ORAL Discontinued by another Health Care Provider - lactobacillus rhamnosus (CULTURELLE) 15 billion cell capsule Discontinued by another Health Care Provider - apixaban (ELIQUIS) 5 mg tab(s) Course of therapy completed - apixaban 5 mg tab(s) (ELIQUIS) - cefTRIAXone iv piggyback 1 g in dextrose (iso-osmotic) 50 mL (ROCEPHIN) - NaCl 0.9% iv infusion - gabapentin 300 mg tab(s) (NEURONTIN) Not on Formulary - oxyCODONE IR 10 mg tab(s) (ROXICODONE) Erroneous entry - vancomycin 1.5 g in D5W 250 mL (VANCOCIN) - miconazole 2 % 1 application (MONISTAT-DERM,MAY) - acetaminophen 1,000 mg tab(s) (TYLENOL) - ceFEPime iv piggyback 1 g in D5W 50 mL (MAXIPIME) - vancomycin 2 g in D5W 500 mL (VANCOCIN) - oxyCODONE IR 10 mg tab(s) (ROXICODONE) - piperacillin-tazobactam iv piggyback 3.375 g in dextrose (iso-osmotic) 50 mL (ZOSYN) - insulin lispro pen (rapid acting) (HumaLOG KWIKPEN) - lactated ringers infusion - cefTRIAXone iv piggyback 1 g in dextrose (iso-osmotic) 50 mL (ROCEPHIN) - insulin lispro pen (rapid acting) (HumaLOG KWIKPEN) - insulin glargine 30 Units pen (long acting) (LANTUS SOLOSTAR, BASAGLAR KWIKPEN) - NORepinephrine 16 mg in D5W 250 mL (LEVOPHED) - magnesium sulfate in water 2 g in sterile water 50 ml SIGNATURE: Rizwan Fonseca DO PATIENT NAME: Salazar Coyle DATE: July 06, 2018 TIME: 8:26 AM PAGER/CONTACT #: Kiera Torrez NIGHT AND WEEKEND COVERAGE: After 7pm please page [phone] Normal [facility] Protimeon 07-06-2018 INR Coag (PPP) [Relative time] 1.10 {INR} Normal 0.90-1.30 [facility] Comment on above: Result Comment: Nerissa min K Antagonist (VKA) Therapeutic Range: INR 2 to 3 (Target INR of 2.5) Note: For patients treated with VKA drugs, such as warfarin, the [employer] 2012 Guideline recommends a therapeutic INR range of 2 to 3 (target INR of 2.5). This recommendation includes high-risk patients with antiphospholipid syndrome with previous arterial or venous thromboembolism, current-generation mechanical or bioprosthetic aortic heart valve replacement. VKA Therapeutic Range for some Mechanical Valve Replacement: INR 2.5 to 3.5 (Target INR of 3) Note: Patients with mechanical aortic valve replacement and additional risk factors for thromboembolic events (atrial fibrillation, previous thromboembolism, LV dysfunction, hypercoagulable conditions) or an older generation mechanical AVR (i.e., ball in-Cage) or any mechanical MVR should have a INR therapeutic range of 2.5 to 3.5 target INR of 3). Cjyatt GH, et al. Chest 2012; 141:7S-47S Pete RA, et al. JACC 2017; 70: 252-289 Performed By: #### P BNP #### [facility] [address] [place] [address] PT Coag (PPP) [Time] 11.4 s Normal 9.7-13.0 [facility] Comment on above: Performed By: #### P BNP #### [facility] [address], [place] [address] Activated PTTon 07-05-2018 aPTT Coag (Bld) [Time] 56.4 s High 23.0-32.4 [facility] Comment on above: Result Comment: Unfr actionated Heparin Therapeutic Ranges: Standard Heparin Nomogram: 53 to 78 seconds (anti-Xa level of 0.3 to 0.7 U/mL) Low Dose/ACS Nomogram: 49 to 67 seconds (anti-Xa level of 0.2 to 0.5 U/mL) Stroke Treatment Nomogram: 49 to 67 seconds (anti-Xa level of 0.2 to 0.5 U/mL) Note: The APTT therapeutic range has been determined for the current lot of laboratory APTT reagent in use throughout the [facility]. Performed By: #### P BNP #### [address] [address] aPTT Coag (Bld) [Time] 44.6 s High 23.0-32.4 [facility] Comment on above: Result Comment: Unfr actionated Heparin Therapeutic Ranges: Standard Heparin Nomogram: 53 to 78 seconds (anti-Xa level of 0.3 to 0.7 U/mL) Low Dose/ACS Nomogram: 49 to 67 seconds (anti-Xa level of 0.2 to 0.5 U/mL) Stroke Treatment Nomogram: 49 to 67 seconds (anti-Xa level of 0.2 to 0.5 U/mL) Note: The APTT therapeutic range has been determined for the current lot of laboratory APTT reagent in use throughout the [facility]. Performed By: #### P BNP #### [address] [address] aPTT Coag (Bld) [Time] 55.0 s High 23.0-32.4 [facility] Comment on above: Result Comment: Unfr actionated Heparin Therapeutic Ranges: Standard Heparin Nomogram: 53 to 78 seconds (anti-Xa level of 0.3 to 0.7 U/mL) Low Dose/ACS Nomogram: 49 to 67 seconds (anti-Xa level of 0.2 to 0.5 U/mL) Stroke Treatment Nomogram: 49 to 67 seconds (anti-Xa level of 0.2 to 0.5 U/mL) Note: The APTT therapeutic range has been determined for the current lot of laboratory APTT reagent in use throughout the [facility]. Performed By: #### P 14 #### [facility] [address] [place], [place] [address] aPTT Coag (Bld) [Time] 44.6 s High 23.0-32.4 [facility] Comment on above: Result Comment: Unfr actionated Heparin Therapeutic Ranges: Standard Heparin Nomogram: 53 to 78 seconds (anti-Xa level of 0.3 to 0.7 U/mL) Low Dose/ACS Nomogram: 49 to 67 seconds (anti-Xa level of 0.2 to 0.5 U/mL) Stroke Treatment Nomogram: 49 to 67 seconds (anti-Xa level of 0.2 to 0.5 U/mL) Note: The APTT therapeutic range has been determined for the current lot of laboratory APTT reagent in use throughout the [facility]. Performed By: #### P 14 #### [place] [address] Basic Panelon 07-05-2018 Creatinine [Mass/Vol] 0.60 mg/dL Normal 0.51-0.95 [facility] Comment on above: Performed By: #### P 14 #### [address] [address] Anion gap [Moles/Vol] 9 mmol/L Normal 8-16 [facility] Comment on above: Performed By: #### P 14 #### [address] [address] CO2 [Moles/Vol] 31 mmol/L Normal 21-32 [facility] Comment on above: Performed By: #### P 14 #### [facility] [address], [place] [address] Urea nitrogen [Mass/Vol] 9 mg/dL Normal 7-18 [facility] Comment on above: Performed By: #### P 14 #### [address] [address] Calcium [Mass/Vol] 8.0 mg/dL Low 8.5-10.1 [facility] Comment on above: Performed By: #### P 14 #### [facility] [address], [place] [address] Glucose [Mass/Vol] 211 mg/dL High 70-99 [facility] Comment on above: Performed By: #### P 14 #### [facility] [address], [place] [address] Chloride [Moles/Vol] 108 mmol/L High 98-107 [facility] Comment on above: Performed By: #### P 14 #### [facility] [address], [place] [address] Potassium [Moles/Vol] 3.6 mmol/L Normal 3.5-5.1 [facility] Comment on above: Performed By: #### P 14 #### [facility] [address], [place] [address] Sodium [Moles/Vol] 144 mmol/L Normal 136-145 [facility] Comment on above: Performed By: #### P 14 #### [facility] [address], [place] [address] CASE MANAGEMon 07-05-2018 CASE MANAGEM HNO ID: [id number] Author: Simona Naik Service: Care Management Author Type: ? Type: Care Mgt Progress Note Filed: 07/05/2018 12:52 PM Note Text: CARE MANAGEMENT PROGRESS NOTE SERVICE DATE: 07/05/2018 SERVICE TIME: 1030 LOS: 3 days IM letter given to patient on [id number]. SIGNATURE: Simona Naik PATIENT NAME: Salazar Coyle DATE: July 05, 2018 TIME: 12:51 PM PAGER/CONTACT #: [phone] Normal [facility] CASE MANAGEM HNO ID: [id number] Author: Felecia (Rn) MATHEUS Cope Service: Care Management Author Type: Registered Nurse Type: Care Mgt Progress Note Filed: 07/05/2018 12:38 PM Note Text: CARE MANAGEMENT PROGRESS NOTE SERVICE DATE: 07/05/2018 SERVICE TIME: 12:36 PM LOS: 3 days Met with pt at bedside. She confirms that she lives at [facility] and would like to return. Met with [facility] liaison. She states pt is a bed hold. Sent message in [facility] to confirm. SIGNATURE: Felecia Cope RN PATIENT NAME: Salazar Coyle DATE: July 05, 2018 TIME: 12:35 PM PAGER/CONTACT #: [phone] Normal [facility] Hemogramon 07-05-2018 Erythrocyte distribution width (RBC) [Ratio] 14.6 % High 11.7-14.4 [facility] Comment on above: Performed By: #### P 14 #### [facility] [address] [place] [address] Hematocrit (Bld) [Volume fraction] 32.5 % Low 34.1-44.9 [facility] Comment on above: Performed By: #### P 14 #### [place] [address] Hemoglobin (Bld) [Mass/Vol] 10.4 g/dL Low 11.2-15.7 [facility] Comment on above: Performed By: #### P 14 #### [place] [address] MCH (RBC) [Entitic mass] 30.8 pg Normal 25.6-32.2 [facility] Comment on above: Performed By: #### P 14 #### [place] [address] MCHC (RBC) [Mass/Vol] 32.0 % Normal 31.6-34.8 [facility] Comment on above: Performed By: #### P 14 #### [place] [address] MCV (RBC) [Entitic vol] 96.2 fL High 79.4-94.8 [facility] Comment on above: Performed By: #### P 14 #### [facility] [address] [address] Platelet mean volume (Bld) [Entitic vol] 11.6 fL Normal 9.4-12.3 [facility] Comment on above: Performed By: #### P 14 #### [facility] [address] [place] [address] Platelets (Bld) [#/Vol] 101 thou/cmm Low 182-369 [facility] Comment on above: Performed By: #### P 14 #### [facility] [address] [place] [address] RBC (Bld) [#/Vol] 3.38 mil/cmm Low 3.93-5.22 [facility] Comment on above: Performed By: #### P 14 #### [facility] [address] [place] [address] RDW SD 51.5 fl High 36.4-46.3 [facility] Comment on above: Performed By: #### P 14 #### [facility] [address] [place] [address] WBC (Bld) [#/Vol] 13.95 thou/cmm High 3.98-10.04 [facility] Comment on above: Performed By: #### P 14 #### [facility] [address] [address] Magnesium Bloodon 07-05-2018 Magnesium [Mass/Vol] 2.2 mg/dL Normal 1.6-2.6 [facility] Comment on above: Performed By: #### P 14 #### [facility] [address] [address] NURSING PROGon 07-05-2018 NURSING PROG HNO ID: [id number] Author: Honey (Rn) MATHEUS Hawthorne Service: Nursing Author Type: Registered Nurse Type: Nursing Progress Note Filed: 07/05/2018 7:12 PM Note Text: 17:48-OTOLARYNGOLOGY PHYSICIAN called report to 4200 MATHEUS Guerra RN. 18:00-RN called Jesus, , updated him that patient will be moving to 4219. 18:45-transferred patient from 4824 to 4219 via bariatric bed. RN ensured heparin drip was going at 2600units/hr and patient was attached to 2LNC and new residential monitor placed. Tech at bedside obtaining vitals. MATHEUS Guerra given meds. Normal [facility] PROGRESSon 07-05-2018 PROGRESS HNO ID: [id number] Author: Durga Allison MD Service: Critical Care Author Type: Resident Type: Progress Notes Filed: 07/05/2018 11:04 AM Note Text: -- Attestation signed by Feliberto Romeo at 07/05/2018 6:12 PM [facility] STAFF PHYSICIAN NOTE OF PERSONAL INVOLVEMENT IN CARE I have reviewed the progress note obtained and documented by the resident and I personally participated in the arias components. I have discussed the case and management of the patient's care. The following comments revise or confirm relevant arias components of the note and have added additional documentation as needed. Interval history: No overnight events. Pt feels much better. Off pressors since this am. No other new issues. Full ROS with the pt and RN done. Exam: Vitals noted Morbidly obese, looks chronically ill More awake today and NAD A, O times 3, no FND Right IJ TLC Decreased BS b/l Distant heart sounds, S1S2, irregular Soft, obese, NT B/l pedal edema present Data: Na 144, K 3.6 Cl 108, BUN 9, Cr 0.6 WCC 13, Plt 100, Hb 10.3 PTT 38 7.32/ 48 - VBG DIC labs - not consistent with DIC LA 3.5 - 1.7 BCx - GNB - proteus, sensitive to cef and levaquin UA - UTI CXR - mild pulmonary edema DVT scan: limited but no obvious DVT IMPRESSION: Ms Vang is a 67 year old white woman with PMH significant for morbid obesity, DM, HTN, A.fib on eliquis, depression, limited mobility, chronic Jose, and [place] resident brought in for change in mental status and found to have septic shock. Much improved acute encephalopathy from shock/ WHITLEY/ gabapentin use Resolved septic shock from proteus UTI Complicated catheter related proteus UTI - POA WHITLEY from shock, resolved Gabapentin use in the setting of WHITLEY Thrombocytopenia, stable Mild hyperbilirubinemia A.fib on AC but not an appropriate candidate for eliquis Morbid obesity/ likely PHOEBE MMP DM-II PLAN: - c/w ceftriaxone - at least for 7-10 days - monitor off pressors - advance diet - c/w heparin drip- should be on coumadin and not eliquis (too heavy for this) - monitor counts - restart gabapentin, flexeril, and baclofen - SSI - supportive care - floor later, if able to stay off pressors for long Code status: full PROGNOSIS: Guarded in the long run Patient/Family Updated: no family at the bedside PATIENT CHECKLIST Are restraints necessary: No Deep vein thrombosis prophylaxis administered? Yes Stress ulcer prophylaxis? Yes Jose catheter necessary? Yes Is central line essential? Yes Discussed with MICU team, residents, and pharm D. This patient has a high probability of sudden, clinically significant deterioration, which requires the highest level of physician preparedness to intervene urgently. I managed/supervised life or organ supporting interventions that required frequent physician assessment. I devoted my full attention to the direct care of this patient for the amount of time indicated below. Time I spent with family or surrogate(s) is included only if the patient was incapable of providing the necessary information or participating in medical decision making. Time devoted to teaching and to any procedures I billed separately is not included. Critical Care Documentation: The patient has the following organ/system impairment(s): Acute kidney injury, Complex life-threatening medical problem(s), Encephalopathy, Septic shock and Severe metabolic disorder Time spent providing critical care services: 31 minutes. SIGNATURE: Feliberto Romeo MD [facility] PAGER:[phone] -- CRITICAL CARE PROGRESS NOTE SERVICE DATE: 07/05/2018 SERVICE TIME: 8:59 AM Admission Date: 07/02/2018 AGE: [age] year old LOS: 3 days Subjective History: 67 yo F with PMHx of multiple chronic medical conditions including Type 2 diabetes mellitus, morbid obesity, essential hypertension, chronic atrial fibrillation, chronic pain syndrome presents from SNF for evaluation of altered mental status. The patient has a chronic indwelling jose catheter secondary to mobility issues and reportedly was recently diagnosed with a UTI at the SNF. By SNF staff, patient has been having declining mental status in the past 24 hours and this morning they noted she was "not herself." Patient at baseline is AOx3 and conversational, today noted to be moaning in response to pain, but not answering questions, AOx0. SNF staff sent UA and patient diagnosed with complicated UTI. NO antibiotics were started prior to transfer to ED. Patient sent to ED secondary to mental status changes in setting of infection. In ED, patient found to be in septic shock, NOT responsive to adequate fluid resuscitation with source of complicated UTI. Patient with WHITLEY in setting of UTI, Cr 1.35 (base 0.64), BUN 20. Patient with neutrophilic leukocytosis WBC 19.50. Lactic acid also elevated at 8.5. Patient started on broad spectrum IV abx, rocephin and vancomycin. Requiring pressor support via CVC. Cultures sent and pending at this time. Interval History No acute overnight events. Patient now off levo. Patient no longer acting confused. She is complaining of RLE chronic pain, otherwise no complaints. Remaining ROS negative. She is tolerating eating and drinking without difficulty. She has good urine output. 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, Lumbar Region Type 2 Diabetes Mellitus With Hyperglycemia ([facility]) Wounds, Multiple Paf (Paroxysmal Atrial Fibrillation) ([facility]) Osteoarthritis Hypertension Hyperlipemia Foot Ulcer ([facility]) Tia (Transient Ischemic Attack) Bmi 60.0-69.9, Adult ([facility]) Stroke ([facility]) Patient Noncompliant With Anticoagulant Medication Chronic Pain Cellulitis Morbid Obesity With Bmi of 70 and Over, Adult ([facility]) Septic Shock ([facility]) Whitley (Acute Kidney Injury) ([facility]) Acute Encephalopathy PAST MEDICAL HISTORY Diagnosis Date - Back pain - Foot ulcer ([facility]) - Generalized weakness - Hip pain - Hyperlipemia - Hypertension - Morbid obesity ([facility]) - Muscle spasm of back - Osteoarthritis - PAF (paroxysmal atrial fibrillation) ([facility]) - Rotator cuff tear - Stroke ([facility]) - Type 2 diabetes mellitus with hyperglycemia ([facility]) PAST SURGICAL HISTORY Procedure Laterality Date - APPENDECTOMY - BLADDER SURGERY HX - TONSILLECTOMY HX - TUBAL LIGATION HX Social History Socioeconomic History Marital status: Spouse name: Not on file Number of children: Not on file Years of education: Not on file Highest education level: Not on file Social Needs Financial resource strain: Not on file Food insecurity - worry: Not on file Food insecurity - inability: Not on file Transportation needs - medical: Not on file Transportation needs - non-medical: Not on file Occupational History Occupation: Retired Tobacco Use Smoking status: Never Smoker Smokeless tobacco: Never Used Substance and Sexual Activity Alcohol use: No Drug use: No Sexual activity: Not Currently Other Topics Concerns: Not on file Social History Narrative Not on file VITAL SIGNS (last 24hrs min/max): Temp Av.8 ?C (98.2 ?F) Min: 36.8 ?C (98.2 ?F) Max: 36.8 ?C (98.2 ?F) Pulse Av.3 Min: 82 Max: 90 No data recorded Cuff BP Min: 71/44 Max: 87/59 Pain Level: 0 Vital signs reviewed. BP 139/72 Pulse 130 Temp (Src) 96.8 (Axillary) Resp 16 Ht 5' 5" (1.65m) Wt 429 lb 14.4 oz (195.0kg) SpO2 97% BMI 71.54 kg/(m2). O2 Therapy: Nasal Cannula, Liters: 2 Temp (24hrs), Av.2 ?C (97.2 ?F), Min:34 ?C (93.2 ?F), Max:37.7 ?C (99.9 ?F) NET FLUID BALANCE Intake/Output Summary (Last 24 hours) at 07/05/2018 0700 Last data filed at 07/05/2018 0600 Gross per 24 hour Intake 2488.4 ml Output 5120 ml Net -2631.6 ml MEDICATIONS Current Facility-Administered Medications Medication Dose Route Frequency - cefTRIAXone iv piggyback 1 g in dextrose (iso-osmotic) 50 mL (ROCEPHIN) 1 g INTRAVENOUS q 24 H - insulin lispro pen (rapid acting) (HumaLOG KWIKPEN) SUBCUTANEOUS q 6 H - insulin glargine 30 Units pen (long acting) (LANTUS SOLOSTAR, BASAGLAR KWIKPEN) 30 Units SUBCUTANEOUS AT BEDTIME - miconazole 2 % 1 application (MONISTAT-DERM,MAY) 1 application TOPICAL BID - miconazole 2 % 1 application topical powder (LOTRIMIN AF, DESENEX) 1 application TOPICAL BID - fentaNYL 50 mcg/mL 25 mcg injection (SUBLIMAZE) 25 mcg INTRAVENOUS q 2 H PRN - acetaminophen 650 mg tab(s) (TYLENOL) 650 mg ORAL q 4 H PRN - NORepinephrine 16 mg in D5W 250 mL (LEVOPHED) 0.6-30 mcg/min INTRAVENOUS CONTINUOUS - potassium chloride 40 mEq oral powder (KLOR-CON) 40 mEq ORAL/FEEDING TUBE PRN - potassium chloride iv piggyback 20 mEq/100 mL 20 mEq INTRAVENOUS PRN - magnesium sulfate in water 2 g in sterile water 50 ml 2 g INTRAVENOUS PRN - sodium glycerophosphate 45 mmol in NaCl 0.9% 250 mL (GLYCOPHOS) 45 mmol INTRAVENOUS PRN - calcium gluconate 4 g in NaCl 0.9% 250 mL 4 g INTRAVENOUS PRN - atorvastatin 40 mg tab(s) (LIPITOR) 40 mg ORAL AT BEDTIME - albuterol 2.5 mg /3 mL (0.083 %) 2.5 mg (PROVENTIL) 2.5 mg INHALATION q 4 H PRN - bisacodyl 10 mg suppository (DULCOLAX) 10 mg RECTAL DAILY PRN - DULoxetine 60 mg cap(s) (CYMBALTA) 60 mg ORAL DAILY - NaCl 0.9% 10 mL 10 mL INTRAVENOUS q 12 H - NaCl 0.9% 20 mL 20 mL INTRAVENOUS PRN - dextrose 40 % 15 g 15 g ORAL PRN Or - glucagon 1 mg injection (GLUCAGEN) 1 mg INTRAMUSCULAR PRN Or - dextrose 50% in water 25 mL syringe 12.5 g INTRAVENOUS PRN - heparin iv infusion (LOW DOSE ACS/NOMOGRAM) 25,000 units in NaCl 0.45% 250 mL PREMIX 0-3,000 Units/hr INTRAVENOUS CONTINUOUS And - heparin RATE CHANGE bolus 1,000-4,000 Units for subtherapeutic aptt results 1,000-4,000 Units INTRAVENOUS PRN Lines, Drains, and Airways Line Central Line Triple Lumen 07/02/18 Non-tunneled Right Neck 3 days Drain Indwelling Urinary Catheter 07/02/18 1159 Jose 16 Fr 2 days PHYSICAL EXAM PERFORMED: Cardiovascular: Irregular rhythm and regular rate. Patient noted to be in atrial fibrillation, known to this patient Respiratory: Reduced breath sounds bilat and patient maintaining airway Abdomen: Soft and non-distended. Abdomen is morbidly obese. Patient does complain/moan to palpation of suprapubic region and localizes to pain. There is yeast rash noted to groin region Extremities: Edema- Yes, nonpitting. Patient with scaling of skin to extremities. Extremities are warm to touch. Capillary refill 2-3 seconds. Neurologic: patient opens eyes spontaneously and looks about the room. She does not answer questions, AOx0. She does not follow commands. She moans in response to and localizes to pain. Respiratory/Nursing Documentation: O2 Therapy: Nasal Cannula (07/05/18 0400) HEMODYNAMIC DATA: Reviewed NUTRITION: Enteral Feeds: No NPO DATA: Diagnostic tests reviewed for today's visit, films/specimens were personally reviewed by me: Most recent labs and imaging results. LABS: Recent Labs 07/05/18 0445 07/05/18 0430 07/03/18 1010 07/03/18 0130 07/02/18 1532 07/02/18 0729 CK -- -- -- -- -- -- -- 519* -- -- TROPI -- -- -- -- -- 0.039 < > 0.056* -- -- WBC 13.95* -- < > -- < > -- -- -- -- 19.50* RBC 3.38* -- < > -- < > -- -- -- -- 4.26 HB 10.4* -- < > -- < > -- -- -- -- 13.4 HCT 32.5* -- < > -- < > -- -- -- -- 42.1 MCV 96.2* -- < > -- < > -- -- -- -- 98.8* PLT 101* -- < > -- < > -- -- -- -- 220 GLUC 211* -- < > -- < > -- -- -- -- 182* BUN 9 -- < > -- < > -- -- -- -- 20* CREAT 0.60 -- < > -- < > -- -- -- -- 1.35* NA 144 -- < > -- < > -- -- -- -- 139 K 3.6 -- < > -- < > -- -- -- -- 3.8 CHLOR 108* -- < > -- < > -- -- -- -- 104 CO2 31 -- < > -- < > -- -- -- -- 26 TPROT -- -- -- -- -- -- -- -- -- 6.5 ALB -- -- -- -- -- -- -- -- -- 2.5* CA 8.0* -- < > -- < > -- -- -- -- 8.4* ALKPHOS -- -- -- -- -- -- -- -- -- 117* TBILI -- -- -- -- -- -- -- -- -- 1.2* AST -- -- -- -- -- -- -- -- -- 18 ALT -- -- -- -- -- -- -- -- -- 14 PTSEC -- -- -- 13.0 -- -- -- -- -- 11.9 APTT -- 55.0* < > -- < > 75.2* < > -- -- -- INR -- -- -- 1.27 -- -- -- -- -- 1.16 MG 2.2 -- -- -- -- -- -- 1.5* < > -- < > = values in this interval not displayed. ABG: Recent Labs 07/02/18 1237 PO2 50.4* PCO2 43.9 Assessment/Plan IMPRESSION: Critical Care Documentation: The patient has the following organ/system impairment(s): Acute kidney injury, Encephalopathy and Septic shock Septic Shock - Resolving Off pressors Abx changed to Rocephin WBC trending down Complicated urinary tract infection Blood cultures grew gram negative bacilli proteus species Urine cultures contaminated Source control: jose catheter changed in ED Hematuria Hematuria in setting of OAC Irrigate as needed for clogged jose WHITLEY - Resolved Will continue to monitor, daily BMP Encephalopathy - Resolved Likely secondary to septic shock Thrombocytopenia DIC panel not consistent with DIC Will continue to monitor Lower Extremity Pain Bilateral US DVT study negative Will resume patient's home baclofen and gabapentin Type 2 DM Patient on humalog HOME medication Will order SSI during admission Essential Hypertension Patient hypotensive requiring pressor support Will HOLD all home BP medications Chronic Atrial fibrillation EKG shows Afib without acute ST changes Patient not rate controlled currently, will resume home Lopressor Patient started on Coumadin, d/c home eliquis Morbid obesity Nutrition consult for dietary recommendations Patient NPO at this time secondary to mental status SIGNATURE: Durga Allison MD PATIENT NAME: Salazar Coyle DATE: July 05, 2018 TIME: 8:59 AM Normal [facility] Protein C Activityon 019 Protein [Mass/Vol] SEE BELOW Normal [facility] Comment on above: Result Comment: Prot ein C Functional 46 L 76-147 % Result rechecked. Decreased functional Protein C assay value. Acquired causes of decreased protein C should be excluded and this value should be interpreted in correlation with clinical data. Low levels of protein C can be observed with oral anticoagulant therapy, vitamin K deficiency, liver disease, acute thrombosis, infections, DIC, postoperatively, in uremia and with L-asparaginase or other chemotherapy. Recommend repeating functional protein C and ordering protein C antigen and clottable protein S to ascertain whether this is due to protein C deficiency. Family studies may also be helpful to establish a diagnosis. Performing Laboratory: [facility] [address] [place] [address] Performed By: #### P 14 #### [place] [address] Protimeon 07-05-2018 INR Coag (PPP) [Relative time] 1.08 {INR} Normal 0.90-1.30 [facility] Comment on above: Result Comment: Nerissa min K Antagonist (VKA) Therapeutic Range: INR 2 to 3 (Target INR of 2.5) Note: For patients treated with VKA drugs, such as warfarin, the [place] 2012 Guideline recommends a therapeutic INR range of 2 to 3 (target INR of 2.5). This recommendation includes high-risk patients with antiphospholipid syndrome with previous arterial or venous thromboembolism, current-generation mechanical or bioprosthetic aortic heart valve replacement. VKA Therapeutic Range for some Mechanical Valve Replacement: INR 2.5 to 3.5 (Target INR of 3) Note: Patients with mechanical aortic valve replacement and additional risk factors for thromboembolic events (atrial fibrillation, previous thromboembolism, LV dysfunction, hypercoagulable conditions) or an older generation mechanical AVR (i.e., ball in-Cage) or any mechanical MVR should have a INR therapeutic range of 2.5 to 3.5 target INR of 3). Alexis GH, et al. Chest 2012; 141:7S-47S Pete RA et al. [facility] 2017; 70: 252-289 Performed By: #### P BNP #### [facility] [address], [place] [address] PT Coag (PPP) [Time] 11.2 s Normal 9.7-13.0 [facility] Comment on above: Performed By: #### P BNP #### [facility] [address], [place] [address] Activated PTTon 07-04-2018 aPTT Coag (Bld) [Time] 38.8 s High 23.0-32.4 [facility] Comment on above: Result Comment: Unfr actionated Heparin Therapeutic Ranges: Standard Heparin Nomogram: 53 to 78 seconds (anti-Xa level of 0.3 to 0.7 U/mL) Low Dose/ACS Nomogram: 49 to 67 seconds (anti-Xa level of 0.2 to 0.5 U/mL) Stroke Treatment Nomogram: 49 to 67 seconds (anti-Xa level of 0.2 to 0.5 U/mL) Note: The APTT therapeutic range has been determined for the current lot of laboratory APTT reagent in use throughout the [facility]. Performed By: #### P 14 #### [facility] [address], [place] [address] aPTT Coag (Bld) [Time] 41.0 s High 23.0-32.4 [facility] Comment on above: Result Comment: Unfr actionated Heparin Therapeutic Ranges: Standard Heparin Nomogram: 53 to 78 seconds (anti-Xa level of 0.3 to 0.7 U/mL) Low Dose/ACS Nomogram: 49 to 67 seconds (anti-Xa level of 0.2 to 0.5 U/mL) Stroke Treatment Nomogram: 49 to 67 seconds (anti-Xa level of 0.2 to 0.5 U/mL) Note: The APTT therapeutic range has been determined for the current lot of laboratory APTT reagent in use throughout the [facility]. Performed By: #### P 14 #### [facility] [address], [place] [address] Basic Panelon 07-04-2018 Creatinine [Mass/Vol] 0.81 mg/dL Normal 0.51-0.95 [facility] Comment on above: Performed By: #### P 14 #### [facility] [address], [place] [address] Anion gap [Moles/Vol] 6 mmol/L Low 8-16 [facility] Comment on above: Performed By: #### P 14 #### [facility] [address], [place] [address] CO2 [Moles/Vol] 30 mmol/L Normal 21-32 [facility] Comment on above: Performed By: #### P 14 #### [facility] [address], [place] [address] Glucose [Mass/Vol] 215 mg/dL High 70-99 [facility] Comment on above: Performed By: #### P 14 #### [facility] [address], [place] [address] Urea nitrogen [Mass/Vol] 21 mg/dL High 7-18 [facility] Comment on above: Performed By: #### P 14 #### [facility] [address], [place] [address] Calcium [Mass/Vol] 7.8 mg/dL Low 8.5-10.1 [facility] Comment on above: Performed By: #### P 14 #### [facility] [address], [place] [address] Chloride [Moles/Vol] 107 mmol/L Normal 98-107 [facility] Comment on above: Performed By: #### P 14 #### [facility] [address], [place] [address] Potassium [Moles/Vol] 3.3 mmol/L Low 3.5-5.1 [facility] Comment on above: Performed By: #### P 14 #### [facility] [address], [place] [address] Sodium [Moles/Vol] 140 mmol/L Normal 136-145 [facility] Comment on above: Performed By: #### P 14 #### [facility] [address] [place] [address] Hemogramon 07-04-2018 Erythrocyte distribution width (RBC) [Ratio] 14.6 % High 11.7-14.4 [facility] Comment on above: Performed By: #### P T #### [facility] [address] [place] [address] Hematocrit (Bld) [Volume fraction] 31.6 % Low 34.1-44.9 [facility] Comment on above: Performed By: #### P T #### [facility] [address] [place] [address] Hemoglobin (Bld) [Mass/Vol] 10.3 g/dL Low 11.2-15.7 [facility] Comment on above: Performed By: #### P T #### [facility] [address] [place] [address] MCH (RBC) [Entitic mass] 31.5 pg Normal 25.6-32.2 [facility] Comment on above: Performed By: #### P T #### [facility] [address] [place] [address] MCHC (RBC) [Mass/Vol] 32.6 % Normal 31.6-34.8 [facility] Comment on above: Performed By: #### P T #### [facility] [address] [place] [address] MCV (RBC) [Entitic vol] 96.6 fL High 79.4-94.8 [facility] Comment on above: Performed By: #### P T #### [facility] [address] [place] [address] Platelet mean volume (Bld) [Entitic vol] 11.0 fL Normal 9.4-12.3 [facility] Comment on above: Performed By: #### P T #### [facility] [address] [place] [address] Platelets (Bld) [#/Vol] 100 thou/cmm Low 182-369 [facility] Comment on above: Performed By: #### P T #### [facility] [address], [place] [address] RBC (Bld) [#/Vol] 3.27 mil/cmm Low 3.93-5.22 [facility] Comment on above: Performed By: #### P T #### [facility] [address], [place] [address] RDW SD 52.1 fl High 36.4-46.3 [facility] Comment on above: Performed By: #### P T #### [facility] [address], [place] [address] WBC (Bld) [#/Vol] 22.94 thou/cmm High 3.98-10.04 [facility] Comment on above: Performed By: #### P T #### [facility] [address] [place] [address] NUTRITIONon 07-04-2018 NUTRITION HNO ID: [id number] Author: Claire Young) ANTONIA De La O Service: Nutrition Therapy Author Type: Registered Dietitian Type: Nutrition Filed: 07/04/2018 1:44 PM Note Text: NUTRITION THERAPY INITIAL ASSESSMENT SERVICE DATE: 07/04/2018 SERVICE TIME: 9:52 AM RECOMMENDED MALNUTRITION DIAGNOSIS: NO MALNUTRITION IDENTIFIED NUTRITION CARE PLAN: Problem, Etiology and Signs/Symptoms: Suboptimal protein/energy intake related to mentation and current diet order as evidenced by NPO/clear liquids with limited nutrients and acute illness Intervention: Recommend advance diet as tolerated to goal Heart Healthy and Carbohydrate Controlled diet Would start Ensure High Protein daily when diet advanced to provide 160 kcal and 16 gm protein with 19 gm CHO per serving Coordination of Care: Nursing Monitor and Evaluation: Goal: Meet >75% of estimated needs Monitor fluid/electrolyte balance Monitor labs, I/Os, vital signs, weight Discharge Nutrition Recommendations: Diet: Heart Healthy and Carbohydrate Controlled Chart reviewed for evaluation Per HPI: 67 yo F with PMHx of multiple chronic medical conditions including Type 2 diabetes mellitus, morbid obesity, essential hypertension, chronic atrial fibrillation, chronic pain syndrome presents from SNF for evaluation of altered mental status. Interval History: Treating for septic shock from complicated urinary tract infection. Wound center following. PT/OT consulted. 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, Lumbar Region Type 2 Diabetes Mellitus With Hyperglycemia ([facility]) Wounds, Multiple Paf (Paroxysmal Atrial Fibrillation) ([facility]) Osteoarthritis Hypertension Hyperlipemia Foot Ulcer ([facility]) Tia (Transient Ischemic Attack) Bmi 60.0-69.9, Adult ([facility]) Stroke ([facility]) Patient Noncompliant With Anticoagulant Medication Chronic Pain Cellulitis Morbid Obesity With Bmi of 70 and Over, Adult ([facility]) Septic Shock ([facility]) Whitley (Acute Kidney Injury) ([facility]) Acute Encephalopathy PAST MEDICAL HISTORY Diagnosis Date - Back pain - Foot ulcer ([facility]) - Generalized weakness - Hip pain - Hyperlipemia - Hypertension - Morbid obesity ([facility]) - Muscle spasm of back - Osteoarthritis - PAF (paroxysmal atrial fibrillation) ([facility]) - Rotator cuff tear - Stroke ([facility]) - Type 2 diabetes mellitus with hyperglycemia ([facility]) PAST SURGICAL HISTORY Procedure Laterality Date - APPENDECTOMY - BLADDER SURGERY HX - TONSILLECTOMY HX - TUBAL LIGATION HX Social History Socioeconomic History Marital status: Spouse name: Not on file Number of children: Not on file Years of education: Not on file Highest education level: Not on file Social Needs Financial resource strain: Not on file Food insecurity - worry: Not on file Food insecurity - inability: Not on file Transportation needs - medical: Not on file Transportation needs - non-medical: Not on file Occupational History Occupation: Retired Tobacco Use Smoking status: Never Smoker Smokeless tobacco: Never Used Substance and Sexual Activity Alcohol use: No Drug use: No Sexual activity: Not Currently Other Topics Concerns: Not on file Social History Narrative Not on file Orders Placed This Encounter DIET LIQUID Standing Status: Standing Number of Occurrences: 1 Order Specific Question: Liquid Diet Answer: CLEAR LIQUID Lines and Drains: Central Line Triple Lumen 07/02/18 Non-tunneled Right Neck (Active) Indwelling Urinary Catheter 07/02/18 1159 Jose 16 Fr (Active) Nutritional Intake Prior to Admission: >75% estimated energy needs over the past >1 month(s), denies nutritional concerns prior to admission GI symptoms: constipation, unsure of last BM Nutrition Abdominal Exam:, abdomen is nondistended and bowel sounds are normal, per clinical documentation ANTHROPOMETRICS Height: 165.1 cm (5' 5") Admission Weight: (!) 190 kg (418 lb 14 oz) Current Weight: (!) 195 kg (430 lb) Body mass index is 71.56 kg/m?. class 3 obesity Weight has unable to determine weight loss Reports usual body weight ~ 380 lbs Last Wt 07/04/18 : (!) 195 kg (430 lb), bed scale 07/03/18 : 192.6 kg (424 lb 9.7 oz), bed scale 02/21/18 : (!) 229.5 kg (506 lb), stated weight 01/09/18 : (!) 229.9 kg (506 lb 13.4 oz) 01/05/18 : 175.6 kg (389 lb 1.8 oz) 10/18/17 : (!) 192.5 kg (424 lb 6.2 oz) 07/21/17 : (!) 207.5 kg (457 lb 7.3 oz) 02/26/17 : (!) 172.4 kg (380 lb) 04/27/16 : (!) 172.4 kg (380 lb) 01/20/16 : (!) 172.4 kg (380 lb) 12/13/15 : (!) 172.4 kg (380 lb) 01/25/15 : (!) 172.4 kg (380 lb) [place] Body Weight: 56.8 kg Resting Metabolic Rate: 2479 Estimated kilocalorie needs: 5723-3585 kilocalories determined by 25-30 kcal/kg Estimated protein needs: 68-85 grams determined by 1.2-1.5 g/kg Dosing weight Estimated fluid needs: 6140-0350 milliliters based on 1 mL per kcal NUTRITION FOCUSED PHYSICAL EXAM: Subcutaneous Fat Loss Orbital No fat loss Triceps No fat loss Mid-axillary at the iliac crest No fat loss Muscle Loss Locations: Temporalis No muscle loss Pectoralis Unable to determine at this time Deltoids Unable to determine at this time Interosseous Unable to determine at this time Latissimus dorsi, trapezius Unable to determine at this time Quadriceps Unable to determine at this time Gastrocnemius Unable to determine at this time Potential micronutrient deficiency revealed in: No deficiency identified Edema: Yes Generalized Ascites: No Assessment of Functional Status: Functional capacity is unrelated to nutrition status Temperature Max in 24 hours: Temp (24hrs), Av.7 ?C (99.8 ?F), Min:37.4 ?C (99.3 ?F), Max:38.5 ?C (101.3 ?F) BP 112/51 Pulse 112 Temp 37.7 ?C (99.9 ?F) Resp 21 Ht 165.1 cm (5' 5") Wt (!) 195 kg (430 lb) SpO2 97% BMI 71.56 kg/m? Recent Labs 07/04/18 0334 07/02/18 1532 07/02/18 0729 GLUC 215* < > -- 182* BUN 21* < > -- 20* CREAT 0.81 < > -- 1.35* NA 140 < > -- 139 K 3.3* < > -- 3.8 CHLOR 107 < > -- 104 CO2 30 < > -- 26 ALB -- -- -- 2.5* P -- -- 2.4* -- HB 10.3* < > -- 13.4 HCT 31.6* < > -- 42.1 WBC 22.94* < > -- 19.50* MG -- -- 1.5* -- < > = values in this interval not displayed. Potential Signs of Inflammation: leukocytosis, hyperglycemia, hypoalbuminemia, hyperthermia, tachycardia, imaging studies, microbiologic cultures and chronic condition ALLERGIES No Known Allergies Current Facility-Administered Medications Medication Dose Route Frequency - miconazole 2 % 1 application (MONISTAT-DERM,MAY) 1 application TOPICAL BID - miconazole 2 % 1 application topical powder (LOTRIMIN AF, DESENEX) 1 application TOPICAL BID - piperacillin-tazobactam iv piggyback 3.375 g in dextrose (iso-osmotic) 50 mL (ZOSYN) 3.375 g INTRAVENOUS q 6 H - fentaNYL 50 mcg/mL 25 mcg injection (SUBLIMAZE) 25 mcg INTRAVENOUS q 2 H PRN - acetaminophen 650 mg tab(s) (TYLENOL) 650 mg ORAL q 4 H PRN - NORepinephrine 16 mg in D5W 250 mL (LEVOPHED) 0.6-30 mcg/min INTRAVENOUS CONTINUOUS - potassium chloride 40 mEq oral powder (KLOR-CON) 40 mEq ORAL/FEEDING TUBE PRN - potassium chloride iv piggyback 20 mEq/100 mL 20 mEq INTRAVENOUS PRN - magnesium sulfate in water 2 g in sterile water 50 ml 2 g INTRAVENOUS PRN - sodium glycerophosphate 45 mmol in NaCl 0.9% 250 mL (GLYCOPHOS) 45 mmol INTRAVENOUS PRN - calcium gluconate 4 g in NaCl 0.9% 250 mL 4 g INTRAVENOUS PRN - atorvastatin 40 mg tab(s) (LIPITOR) 40 mg ORAL AT BEDTIME - albuterol 2.5 mg /3 mL (0.083 %) 2.5 mg (PROVENTIL) 2.5 mg INHALATION q 4 H PRN - bisacodyl 10 mg suppository (DULCOLAX) 10 mg RECTAL DAILY PRN - DULoxetine 60 mg cap(s) (CYMBALTA) 60 mg ORAL DAILY - NaCl 0.9% 10 mL 10 mL INTRAVENOUS q 12 H - NaCl 0.9% 20 mL 20 mL INTRAVENOUS PRN - dextrose 40 % 15 g 15 g ORAL PRN Or - glucagon 1 mg injection (GLUCAGEN) 1 mg INTRAMUSCULAR PRN Or - dextrose 50% in water 25 mL syringe 12.5 g INTRAVENOUS PRN - insulin lispro pen (rapid acting) (HumaLOG KWIKPEN) SUBCUTANEOUS q 6 H - heparin iv infusion (LOW DOSE ACS/NOMOGRAM) 25,000 units in NaCl 0.45% 250 mL PREMIX 0-3,000 Units/hr INTRAVENOUS CONTINUOUS And - heparin RATE CHANGE bolus 1,000-4,000 Units for subtherapeutic aptt results 1,000-4,000 Units INTRAVENOUS PRN - lactated ringers infusion 100 mL/hr INTRAVENOUS CONTINUOUS Date 07/03/18699 - 07/04/18 0607/04/18699 - 07/05/18 0659 Shift 8197-8415 1069-2194 7088-7731 24 Hour Total 3854-2537 0083-9305 9180-1846 24 Hour Total INTAKE PO 720 720 240 240 PO 720 720 240 240 IV 1681.2 998.1 1553.5 4232.8 148.5 148.5 Vancomycin IV 500 500 Zosyn IV 50 50 100 200 Potassium IVPB 300 300 Magnesium IVPB 50 50 Heparin IV 96 80.2 126.1 302.3 12 12 LR 930 381 928 7671 122 122 NORepinephrine Volume 105.2 87.9 148.4 341.5 14.5 14.5 Shift Total 2401.2 998.1 1553.5 4952.8 388.5 388.5 OUTPUT Urine 0694 795 0376 3590 1400 1400 Output ( Indwelling Urinary Catheter 07/02/18 1159 Jose 16 Fr) 9662 916 5989 3590 1400 1400 Shift Total 7472 383 4064 3590 1400 1400 Weight (kg) 192.6 192.6 195 195 195 195 195 195 Pressure Injury 07/02/181999 Heel - Right (Active) Stage Injury DTI 07/03/2018 8:00 PM Wallcovering Texturer Related Pressure Injury No 07/03/2018 8:00 PM Dressing Status Clean, Dry AND Intact 07/03/2018 8:00 PM Frequency of Dressing Change Every 3 Days;As Needed 07/03/2018 8:00 PM Dressing/Treatment Type Foam-Adhesive 07/03/2018 8:00 PM Drainage Description None 07/03/2018 8:00 PM Drainage Amount None 07/03/2018 8:00 PM Odor No 07/03/2018 8:00 PM Wound Surface Color Dark Purple 07/03/2018 8:00 PM Surrounding Skin Intact 07/03/2018 8:00 PM Wound Length (cm) 5 cm 07/03/2018 9:00 AM Wound Width (cm) 3 cm 07/03/2018 9:00 AM Wound Depth (cm) 0 cm 07/03/2018 9:00 AM Calculated Wound size (cm2) 15 cm2 07/03/2018 9:00 AM Number of days: 1 Vitamin and Mineral Labs in the past year:No results for input(s): CHROMIUM, COPPER, MANGANESE, SELENIUM, VITAMINA, VITB1, VITB2, VITB6, B12, METHYLMAL, VITD25, VITAMINE, VITAK, ZINC, TIBC, FE, GISELE in the last 8784 hours. MNT Billing Type: Initial Assess/15 min 3 units SIGNATURE: Claire De La O RD, KASH PATIENT NAME: Salazar Coyle DATE: July 04, 2018 TIME: 9:52 AM PAGER: [phone] [facility] PROGRESSon 07-04-2018 PROGRESS HNO ID: [id number] Author: Durga Allison MD Service: Critical Care Author Type: Resident Type: Progress Notes Filed: 07/04/2018 1:56 PM Note Text: -- Attestation signed by Feliberto Romeo at 07/04/2018 3:26 PM [facility] STAFF PHYSICIAN NOTE OF PERSONAL INVOLVEMENT IN CARE I have reviewed the progress note obtained and documented by the resident and I personally participated in the arias components. I have discussed the case and management of the patient's care. The following comments revise or confirm relevant arias components of the note and have added additional documentation as needed. Interval history: No overnight events. Pt feels much better. At times she gets some pain in the RLE but no other symptoms. Full ROS with the pt and RN done. Still on pressors. Exam: 107/ 54, 107, 16, 37, 98% on 2 L NC Morbidly obese, looks chronically ill More awake today and NAD A, O times 3, no FND Right IJ TLC Decreased BS b/l Distant heart sounds, S1S2, irregular Soft, obese, NT B/l pedal edema present Data: Na 140, K 3.3 Cl 107, BUN 21, Cr 0.8 WCC 22, Plt 100, Hb 10.3 PTT 38 7.32/ 48 - VBG DIC labs - not consistent with DIC LA 3.5 - 1.7 BCx - GNB - proteus, sensitive to cef and levaquin UA - UTI CXR - mild pulmonary edema IMPRESSION: Ms Vang is a 67 year old white woman with PMH significant for morbid obesity, DM, HTN, A.fib on eliquis, depression, limited mobility, chronic Jose, and [place] resident brought in for change in mental status and found to have septic shock. Much improved acute encephalopathy from shock/ WHITLEY/ gabapentin use Septic shock from proteus UTI Complicated catheter related UTI - POA WHITLEY from shock, resolved Gabapentin use in the setting of WHITLEY Thrombocytopenia, stable Mild hyperbilirubinemia A.fib on AC but not an appropriate candidate for eliquis Morbid obesity/ likely PHOEBE MMP DM-II PLAN: - change Abx to ceftriaxone - wean pressors to off - d/c fluids - advance diet - c/w heparin drip - monitor counts - a/w LE dopplers - hold gabapentin - SSI - supportive care Code status: full PROGNOSIS: Guarded Patient/Family Updated: d/w at the bedside and explained all of the above PATIENT CHECKLIST Are restraints necessary: No Deep vein thrombosis prophylaxis administered? Yes Stress ulcer prophylaxis? Yes Jose catheter necessary? Yes Is central line essential? Yes Discussed with MICU team, residents, and pharm D. This patient has a high probability of sudden, clinically significant deterioration, which requires the highest level of physician preparedness to intervene urgently. I managed/supervised life or organ supporting interventions that required frequent physician assessment. I devoted my full attention to the direct care of this patient for the amount of time indicated below. Time I spent with family or surrogate(s) is included only if the patient was incapable of providing the necessary information or participating in medical decision making. Time devoted to teaching and to any procedures I billed separately is not included. Critical Care Documentation: The patient has the following organ/system impairment(s): Acute kidney injury, Complex life-threatening medical problem(s), Encephalopathy, Septic shock and Severe metabolic disorder Time spent providing critical care services: 38 minutes. SIGNATURE: Feliberto Romeo MD [facility] PAGER:[phone] -- CRITICAL CARE PROGRESS NOTE SERVICE DATE: 07/04/2018 SERVICE TIME: 8:59 AM Admission Date: 07/02/2018 AGE: [age] year old LOS: 2 days Subjective History: 67 yo F with PMHx of multiple chronic medical conditions including Type 2 diabetes mellitus, morbid obesity, essential hypertension, chronic atrial fibrillation, chronic pain syndrome presents from SNF for evaluation of altered mental status. The patient has a chronic indwelling jose catheter secondary to mobility issues and reportedly was recently diagnosed with a UTI at the [facility]. By SNF staff, patient has been having declining mental status in the past 24 hours and this morning they noted she was "not herself." Patient at baseline is AOx3 and conversational, today noted to be moaning in response to pain, but not answering questions, AOx0. SNF staff sent UA and patient diagnosed with complicated UTI. NO antibiotics were started prior to transfer to ED. Patient sent to ED secondary to mental status changes in setting of infection. In ED, patient found to be in septic shock, NOT responsive to adequate fluid resuscitation with source of complicated UTI. Patient with WHITLEY in setting of UTI, Cr 1.35 (base 0.64), BUN 20. Patient with neutrophilic leukocytosis WBC 19.50. Lactic acid also elevated at 8.5. Patient started on broad spectrum IV abx, rocephin and vancomycin. Requiring pressor support via CVC. Cultures sent and pending at this time. Interval History No acute overnight events. Patient currently on Levo 12mcg, LR 100 mL/min, and Heparin 1000 units/hr. Patient appears less confused and less fatigued now compared to yesterday. Patient reports she is still feeling bilateral lower extremity pain but it is improved today. She otherwise has no complaints at this time. Remaining ROS negative. She is tolerating eating and drinking and has good urine output. 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, Lumbar Region Type 2 Diabetes Mellitus With Hyperglycemia ([facility]) Wounds, Multiple Paf (Paroxysmal Atrial Fibrillation) ([facility]) Osteoarthritis Hypertension Hyperlipemia Foot Ulcer ([facility]) Tia (Transient Ischemic Attack) Bmi 60.0-69.9, Adult ([facility]) Stroke ([facility]) Patient Noncompliant With Anticoagulant Medication Chronic Pain Cellulitis Morbid Obesity With Bmi of 70 and Over, Adult ([facility]) Septic Shock ([facility]) Whitley (Acute Kidney Injury) ([facility]) Acute Encephalopathy PAST MEDICAL HISTORY Diagnosis Date - Back pain - Foot ulcer ([facility]) - Generalized weakness - Hip pain - Hyperlipemia - Hypertension - Morbid obesity ([facility]) - Muscle spasm of back - Osteoarthritis - PAF (paroxysmal atrial fibrillation) ([facility]) - Rotator cuff tear - Stroke ([facility]) - Type 2 diabetes mellitus with hyperglycemia ([facility]) PAST SURGICAL HISTORY Procedure Laterality Date - APPENDECTOMY - BLADDER SURGERY HX - TONSILLECTOMY HX - TUBAL LIGATION HX Social History Socioeconomic History Marital status: Spouse name: Not on file Number of children: Not on file Years of education: Not on file Highest education level: Not on file Social Needs Financial resource strain: Not on file Food insecurity - worry: Not on file Food insecurity - inability: Not on file Transportation needs - medical: Not on file Transportation needs - non-medical: Not on file Occupational History Occupation: Retired Tobacco Use Smoking status: Never Smoker Smokeless tobacco: Never Used Substance and Sexual Activity Alcohol use: No Drug use: No Sexual activity: Not Currently Other Topics Concerns: Not on file Social History Narrative Not on file VITAL SIGNS (last 24hrs min/max): Temp Av.8 ?C (98.2 ?F) Min: 36.8 ?C (98.2 ?F) Max: 36.8 ?C (98.2 ?F) Pulse Av.3 Min: 82 Max: 90 No data recorded Cuff BP Min: 71/44 Max: 87/59 Pain Level: 0 Vital signs reviewed. BP 173/67 Pulse 122 Temp (Src) 99.5 (Axillary) Resp 20 Ht 5' 5" (1.65m) Wt 430 lb (195.0kg) SpO2 98% BMI 71.56 kg/(m2). O2 Therapy: Nasal Cannula, Liters: 2 Temp (24hrs), Av.7 ?C (99.8 ?F), Min:37.4 ?C (99.3 ?F), Max:38.5 ?C (101.3 ?F) NET FLUID BALANCE Intake/Output Summary (Last 24 hours) at 07/04/2018 0650 Last data filed at 07/04/2018 0600 Gross per 24 hour Intake 4952.8 ml Output 3590 ml Net 1362.8 ml MEDICATIONS Current Facility-Administered Medications Medication Dose Route Frequency - miconazole 2 % 1 application (MONISTAT-DERM,MAY) 1 application TOPICAL BID - miconazole 2 % 1 application topical powder (LOTRIMIN AF, DESENEX) 1 application TOPICAL BID - piperacillin-tazobactam iv piggyback 3.375 g in dextrose (iso-osmotic) 50 mL (ZOSYN) 3.375 g INTRAVENOUS q 6 H - fentaNYL 50 mcg/mL 25 mcg injection (SUBLIMAZE) 25 mcg INTRAVENOUS q 2 H PRN - acetaminophen 650 mg tab(s) (TYLENOL) 650 mg ORAL q 4 H PRN - acetaminophen 650 mg tab(s) (TYLENOL) 650 mg ORAL ONCE - NORepinephrine 16 mg in D5W 250 mL (LEVOPHED) 0.6-30 mcg/min INTRAVENOUS CONTINUOUS - potassium chloride 40 mEq oral powder (KLOR-CON) 40 mEq ORAL/FEEDING TUBE PRN - potassium chloride iv piggyback 20 mEq/100 mL 20 mEq INTRAVENOUS PRN - magnesium sulfate in water 2 g in sterile water 50 ml 2 g INTRAVENOUS PRN - sodium glycerophosphate 45 mmol in NaCl 0.9% 250 mL (GLYCOPHOS) 45 mmol INTRAVENOUS PRN - calcium gluconate 4 g in NaCl 0.9% 250 mL 4 g INTRAVENOUS PRN - atorvastatin 40 mg tab(s) (LIPITOR) 40 mg ORAL AT BEDTIME - albuterol 2.5 mg /3 mL (0.083 %) 2.5 mg (PROVENTIL) 2.5 mg INHALATION q 4 H PRN - bisacodyl 10 mg suppository (DULCOLAX) 10 mg RECTAL DAILY PRN - DULoxetine 60 mg cap(s) (CYMBALTA) 60 mg ORAL DAILY - NaCl 0.9% 10 mL 10 mL INTRAVENOUS q 12 H - NaCl 0.9% 20 mL 20 mL INTRAVENOUS PRN - dextrose 40 % 15 g 15 g ORAL PRN Or - glucagon 1 mg injection (GLUCAGEN) 1 mg INTRAMUSCULAR PRN Or - dextrose 50% in water 25 mL syringe 12.5 g INTRAVENOUS PRN - insulin lispro pen (rapid acting) (HumaLOG KWIKPEN) SUBCUTANEOUS q 6 H - heparin iv infusion (LOW DOSE ACS/NOMOGRAM) 25,000 units in NaCl 0.45% 250 mL PREMIX 0-3,000 Units/hr INTRAVENOUS CONTINUOUS And - heparin RATE CHANGE bolus 1,000-4,000 Units for subtherapeutic aptt results 1,000-4,000 Units INTRAVENOUS PRN - lactated ringers infusion 100 mL/hr INTRAVENOUS CONTINUOUS Lines, Drains, and Airways Line Central Line Triple Lumen 07/02/18 Non-tunneled Right Neck 2 days Drain Indwelling Urinary Catheter 07/02/18 1159 Jose 16 Fr 1 day PHYSICAL EXAM PERFORMED: Cardiovascular: Irregular rhythm and regular rate. Patient noted to be in atrial fibrillation, known to this patient Respiratory: Reduced breath sounds bilat and patient maintaining airway Abdomen: Soft and non-distended. Abdomen is morbidly obese. Patient does complain/moan to palpation of suprapubic region and localizes to pain. There is yeast rash noted to groin region Extremities: Edema- Yes, nonpitting. Patient with scaling of skin to extremities. Extremities are warm to touch. Capillary refill 2-3 seconds. Neurologic: patient opens eyes spontaneously and looks about the room. She does not answer questions, AOx0. She does not follow commands. She moans in response to and localizes to pain. Respiratory/Nursing Documentation: O2 Therapy: Nasal Cannula (07/04/18 0600) HEMODYNAMIC DATA: Reviewed NUTRITION: Enteral Feeds: No NPO DATA: Diagnostic tests reviewed for today's visit, films/specimens were personally reviewed by me: Most recent labs and imaging results. LABS: Recent Labs 07/04/18 0334 07/03/18 1010 07/03/18 0130 07/02/18 1532 07/02/18 0729 CK -- -- -- -- -- -- 519* -- TROPI -- -- -- -- 0.039 < > 0.056* -- WBC 22.94* < > -- < > -- -- -- 19.50* RBC 3.27* < > -- < > -- -- -- 4.26 HB 10.3* < > -- < > -- -- -- 13.4 HCT 31.6* < > -- < > -- -- -- 42.1 MCV 96.6* < > -- < > -- -- -- 98.8* PLT 100* < > -- < > -- -- -- 220 GLUC 215* -- -- < > -- -- -- 182* BUN 21* -- -- < > -- -- -- 20* CREAT 0.81 -- -- < > -- -- -- 1.35* NA 140 -- -- < > -- -- -- 139 K 3.3* -- -- < > -- -- -- 3.8 CHLOR 107 -- -- < > -- -- -- 104 CO2 30 -- -- < > -- -- -- 26 TPROT -- -- -- -- -- -- -- 6.5 ALB -- -- -- -- -- -- -- 2.5* CA 7.8* -- -- < > -- -- -- 8.4* ALKPHOS -- -- -- -- -- -- -- 117* TBILI -- -- -- -- -- -- -- 1.2* AST -- -- -- -- -- -- -- 18 ALT -- -- -- -- -- -- -- 14 PTSEC -- -- 13.0 -- -- -- -- 11.9 APTT 41.0* < > -- < > 75.2* < > -- -- INR -- -- 1.27 -- -- -- -- 1.16 MG -- -- -- -- -- -- 1.5* -- < > = values in this interval not displayed. ABG: Recent Labs 07/02/18 1237 PO2 50.4* PCO2 43.9 Assessment/Plan IMPRESSION: Critical Care Documentation: The patient has the following organ/system impairment(s): Acute kidney injury, Encephalopathy and Septic shock Septic Shock Wean pressors Abx changed to Rocephin WBC trending down Complicated urinary tract infection Blood cultures grew gram negative bacilli proteus species Source control: jose catheter changed in ED Hematuria Hematuria in setting of OAC Irrigate as needed for clogged jose WHITLEY BUN and Cr improving Will continue to monitor, daily BMP Encephalopathy Likely secondary to septic shock Has improved , will continue continue to monitor Thrombocytopenia DIC panel not consistent with DIC Will continue to monitor Lower Extremity Pain Bilateral US DVT study pending Type 2 DM Patient on humalog HOME medication Will order SSI during admission Essential Hypertension Patient hypotensive requiring pressor support Will HOLD all home BP medications Chronic Atrial fibrillation Will check EKG now Patient rate controlled at this time Holding beta-dyan in setting of hypotension, continue to monitor Patient on HOME OAC Eliquis 5 mg BID, will change to heparin gtt secondary to NPO status Morbid obesity Nutrition consult for dietary recommendations Patient NPO at this time secondary to mental status Chronic Pain syndrome, neuropathy Gabapentin home medication, will continue at half home dose in setting of WHITLEY: 300 mg 4 times daily Oxycodone 10 mg PO q4 hr PRN HOME medication SIGNATURE: Durga Allison MD PATIENT NAME: Salazar Coyle DATE: July 04, 2018 TIME: 8:59 AM Normal [facility] Activated PTTon 07-03-2018 aPTT Coag (Bld) [Time] 49.0 s High 23.0-32.4 [facility] Comment on above: Result Comment: Unfr actionated Heparin Therapeutic Ranges: Standard Heparin Nomogram: 53 to 78 seconds (anti-Xa level of 0.3 to 0.7 U/mL) Low Dose/ACS Nomogram: 49 to 67 seconds (anti-Xa level of 0.2 to 0.5 U/mL) Stroke Treatment Nomogram: 49 to 67 seconds (anti-Xa level of 0.2 to 0.5 U/mL) Note: The APTT therapeutic range has been determined for the current lot of laboratory APTT reagent in use throughout the [facility]. Performed By: #### P T #### [address] [address] aPTT Coag (Bld) [Time] 51.7 s High 23.0-32.4 [facility] Comment on above: Result Comment: Unfr actionated Heparin Therapeutic Ranges: Standard Heparin Nomogram: 53 to 78 seconds (anti-Xa level of 0.3 to 0.7 U/mL) Low Dose/ACS Nomogram: 49 to 67 seconds (anti-Xa level of 0.2 to 0.5 U/mL) Stroke Treatment Nomogram: 49 to 67 seconds (anti-Xa level of 0.2 to 0.5 U/mL) Note: The APTT therapeutic range has been determined for the current lot of laboratory APTT reagent in use throughout the [facility]. Performed By: #### E RTRP #### [address] [address] aPTT Coag (Bld) [Time] 75.2 s High 23.0-32.4 [facility] Comment on above: Result Comment: Unfr actionated Heparin Therapeutic Ranges: Standard Heparin Nomogram: 53 to 78 seconds (anti-Xa level of 0.3 to 0.7 U/mL) Low Dose/ACS Nomogram: 49 to 67 seconds (anti-Xa level of 0.2 to 0.5 U/mL) Stroke Treatment Nomogram: 49 to 67 seconds (anti-Xa level of 0.2 to 0.5 U/mL) Note: The APTT therapeutic range has been determined for the current lot of laboratory APTT reagent in use throughout the [facility]. Performed By: #### E RTRP #### [place] [address] Antithrombin IIIon 9 Antithrombin III 66.6 % Low 84.0-123.0 [facility] Comment on above: Performed By: #### P T #### [place] [address] Basic Panelon 07-03-2018 Creatinine [Mass/Vol] 1.26 mg/dL High 0.51-0.95 [facility] Comment on above: Performed By: #### E RTRP #### [place] [address] Anion gap [Moles/Vol] 12 mmol/L Normal 8-16 [facility] Comment on above: Performed By: #### E RTRP #### [place] [address] CO2 [Moles/Vol] 26 mmol/L Normal 21-32 [facility] Comment on above: Performed By: #### E RTRP #### [address] [address] Glucose [Mass/Vol] 163 mg/dL High 70-99 [facility] Comment on above: Performed By: #### E RTRP #### [address] [address] Urea nitrogen [Mass/Vol] 28 mg/dL High 7-18 [facility] Comment on above: Performed By: #### E RTRP #### [address] [address] Calcium [Mass/Vol] 7.8 mg/dL Low 8.5-10.1 [facility] Comment on above: Performed By: #### E RTRP #### [facility] [address] [place], [place] [address] Chloride [Moles/Vol] 105 mmol/L Normal 98-107 [facility] Comment on above: Performed By: #### E RTRP #### [facility] [address] [place], [place] [address] Potassium [Moles/Vol] 3.8 mmol/L Normal 3.5-5.1 [facility] Comment on above: Performed By: #### E RTRP #### [facility] [address] [place], [place] [address] Sodium [Moles/Vol] 139 mmol/L Normal 136-145 [facility] Comment on above: Performed By: #### E RTRP #### [facility] [address] [place], [place] [address] CASE MANAGEMon 07-03-2018 CASE MANAGEM HNO ID: [id number] Author: Felecia CisnerosRn) MATHEUS Cpoe Service: Care Management Author Type: Registered Nurse Type: Care Mgt Progress Note Filed: 07/03/2018 3:59 PM Note Text: CARE MANAGEMENT PROGRESS NOTE SERVICE DATE: 07/03/2018 SERVICE TIME: 3:57 PM LOS: 1 day Called pt's son Jesus- confirms pt from [facility]. He requests I call spouse - also Jesus to confirm return. Called home phone- no answer- unable to leave message. SIGNATURE: Felecia Cope RN PATIENT NAME: Salazar Coyle DATE: July 03, 2018 TIME: 3:57 PM PAGER/CONTACT #: [phone] [facility] CONSULT PROGon 07-03-2018 CONSULT PROG HNO ID: [id number] Author: Milagros CisnerosRn) MATHEUS Galdamez Service: Wound/Ostomy Author Type: Registered Nurse Type: Consult Progress Note Filed: 07/03/2018 9:39 AM Note Text: WOUND CARE NURSE CONSULT NOTE SERVICE DATE: 07/03/2018 SERVICE TIME: 08 REASON FOR VISIT: Wound and Pressure Injury TIME SPENT (minutes): 30 Documentation from Wound Expert can be found in scanned documents. Patient seen by Connie FERNANDEZ and rounding RN. Bedside RN requested assessment, RN to obtain consult order. Deep tissue pressure injury of the right heel, dark purple intact skin, wound may open and declare itself. Wound measures 5 x 3 x 0 cm. Allevyn foam heel dressing every 3 days. Friction injury of the buttocks and bilateral posterior thighs. May Miconazole 2% barrier cream BID. Moisture associated dermatitis of the abdominal, back, and leg folds. Desenex Miconazole 2% powder BID. Patient currently on Progressa bed, but bariatric bed already ordered per bedside RN. Turn schedule, allevyn foam dressing to coccyx for pressure injury prevention, prevalon heel boots, and pillows under legs to further offload heels. Wound care to follow. SIGNATURE: Milagros Galdamez RN PATIENT NAME: Salazar Coyle DATE: July 03, 2018 TIME: 9:33 AM CONTACT#: [id number] Normal [facility] D-Dimer Quantitativeon 07-03 D-Dimer, Quant. 4860 ng/mL(FEU) Critically high <500 [facility] Comment on above: Result Comment: The D-Dimer assay can be used to exclude pulmonary embolism (PE) and deep vein thrombosis (DVT) in conjunction with a low pre-test probability. For patients with a suspected DVT, a D-Dimer level below 500 ng/mL FEU has a negative predictive value of >=99.0%, a sensitivity of >=97.0%, and a specificity of >=35.8%. For patients with a suspected PE, a D-Dimer level below 500 ng/mL FEU has a negative predictive value of >=98.6%, a sensitivity of >=96.6%, and a specificity of >=38.9%. Performed By: #### P T #### [place] [address] Fibrinogenon 07-03-2018 Fibrinogen 642 mg/dL High 200-400 [facility] Comment on above: Performed By: #### P T #### [place] [address] Hemogramon 07-03-2018 Erythrocyte distribution width (RBC) [Ratio] 14.6 % High 11.7-14.4 [facility] Comment on above: Performed By: #### E RTRP #### [facility] [address] [place] [address] Hematocrit (Bld) [Volume fraction] 36.0 % Normal 34.1-44.9 [facility] Comment on above: Performed By: #### E RTRP #### [facility] [address] [place] [address] Hemoglobin (Bld) [Mass/Vol] 11.5 g/dL Normal 11.2-15.7 [facility] Comment on above: Performed By: #### E RTRP #### [facility] [address] [place] [address] MCH (RBC) [Entitic mass] 31.0 pg Normal 25.6-32.2 [facility] Comment on above: Performed By: #### E RTRP #### [facility] [address] [place] [address] MCHC (RBC) [Mass/Vol] 31.9 % Normal 31.6-34.8 [facility] Comment on above: Performed By: #### E RTRP #### [facility] [address] [place] [address] MCV (RBC) [Entitic vol] 97.0 fL High 79.4-94.8 [facility] Comment on above: Performed By: #### E RTRP #### [facility] [address] [place] [address] Platelet mean volume (Bld) [Entitic vol] 11.6 fL Normal 9.4-12.3 [facility] Comment on above: Performed By: #### E RTRP #### [facility] [address] [place] [address] Platelets (Bld) [#/Vol] 129 thou/cmm Low 182-369 [facility] Comment on above: Performed By: #### E RTRP #### [facility] [address] [place] [address] RBC (Bld) [#/Vol] 3.71 mil/cmm Low 3.93-5.22 [facility] Comment on above: Performed By: #### E RTRP #### [facility] [address] [place] [address] RDW SD 52.1 fl High 36.4-46.3 [facility] Comment on above: Performed By: #### E RTRP #### [facility] [address] [place] [address] WBC (Bld) [#/Vol] 38.74 thou/cmm Critically high 3.98-10.0 4 [facility] Comment on above: Result Comment: Repe ated AND verified Performed By: #### E RTRP #### [place] [address] Hemogram/Diffon 07-03-2018 Abs. Baso 0.00 thou/cmm Low 0.01-0.08 [facility] Comment on above: Performed By: #### P T #### [place] [address] Abs. [place] 0.00 thou/cmm Low 0.27-0.70 [facility] Comment on above: Performed By: #### P T #### [place] [address] Abs. Neut (ANC) 23.28 thou/cmm High 1.56-6.13 [facility] Comment on above: Performed By: #### P T #### [address] [address] Basophils/100 WBC (Bld) 0.0 % Normal [facility] Comment on above: Performed By: #### P T #### [address] [address] Eosinophils (Bld) [#/Vol] 0.00 thou/cmm Normal 0.00-0.31 [facility] Comment on above: Performed By: #### P T #### [place] [address] Eosinophils/100 WBC (Bld) 0.0 % Normal [facility] Comment on above: Performed By: #### P T #### [facility] [address] [place], [place] [address] Erythrocyte distribution width (RBC) [Ratio] 14.8 % High 11.7-14.4 [facility] Comment on above: Performed By: #### P T #### [facility] [address] [place] [address] Hematocrit (Bld) [Volume fraction] 30.8 % Low 34.1-44.9 [facility] Comment on above: Performed By: #### P T #### [facility] [address] [place] [address] Hemoglobin (Bld) [Mass/Vol] 10.0 g/dL Low 11.2-15.7 [facility] Comment on above: Performed By: #### P T #### [facility] [address] [place] [address] Immat Grans Abs calc 0.51 Normal [facility] Comment on above: Performed By: #### P T #### [place] [address] Lymphocytes (Bld) [#/Vol] 1.52 thou/cmm Normal 1.18-3.74 [facility] Comment on above: Performed By: #### P T #### [place] [address] Lymphocytes/100 WBC (Bld) 6.0 % Normal [facility] Comment on above: Performed By: #### P T #### [facility] [address] [place] [address] MCH (RBC) [Entitic mass] 31.3 pg Normal 25.6-32.2 [facility] Comment on above: Performed By: #### P T #### [facility] [address] [place] [address] MCHC (RBC) [Mass/Vol] 32.5 % Normal 31.6-34.8 [facility] Comment on above: Performed By: #### P T #### [place] [address] MCV (RBC) [Entitic vol] 96.3 fL High 79.4-94.8 [facility] Comment on above: Performed By: #### P T #### [facility] [address] [place] [address] Metamyelocytes 2.0 % Normal [facility] Comment on above: Performed By: #### P T #### [facility] [address] [place] [address] Monocytes/100 WBC (Bld) 0.0 % Normal [facility] Comment on above: Performed By: #### P T #### [facility] [address] [place] [address] Platelet mean volume (Bld) [Entitic vol] 11.4 fL Normal 9.4-12.3 [facility] Comment on above: Performed By: #### P T #### [facility] [address] [place] [address] Platelets (Bld) [#/Vol] 108 thou/cmm Low 182-369 [facility] Comment on above: Performed By: #### P T #### [facility] [address] [place] [address] RBC (Bld) [#/Vol] 3.20 mil/cmm Low 3.93-5.22 [facility] Comment on above: Performed By: #### P T #### [facility] [address] [place] [address] RBC morphology finding Nom (Bld) Normal Normal [facility] Comment on above: Performed By: #### P T #### [facility] [address] [place] [address] RDW SD 52.3 fl High 36.4-46.3 [facility] Comment on above: Performed By: #### P T #### [facility] [address] [place] [address] Seg Neutrophil 92.0 % Normal [facility] Comment on above: Performed By: #### P T #### [facility] [address] [place] [address] WBC (Bld) [#/Vol] 25.30 thou/cmm Critically high 3.98-10.0 4 [facility] Comment on above: Result Comment: Repe ated AND verified Performed By: #### P T #### [facility] [address] [place], [place] [address] Lactic Acidon 07-03-2018 Lactate [Moles/Vol] 2.2 mmol/L Critically high 0.4-2.0 [facility] Comment on above: Performed By: #### P T #### [facility] [address] [place], [place] [address] Lactate [Moles/Vol] 1.7 mmol/L Normal 0.4-2.0 [facility] Comment on above: Performed By: #### E RTRP #### [facility] [address] [place], [place] [address] Lactate [Moles/Vol] 2.1 mmol/L Critically high 0.4-2.0 [facility] & [facility] Comment on above: Performed By: #### E RTRP #### [facility] [address] [address] NURSING PROGon 07-03-2018 NURSING PROG HNO ID: [id number] Author: Jacquelyn CisnerosRn) MATHEUS Juarez Service: Nursing Author Type: Registered Nurse Type: Nursing Progress Note Filed: 07/03/2018 8:15 AM Note Text: Blood cultures called from lab, positive negative bacilli, Dr. Allison updated. No new orders. [facility] NUTRITIONon 07-03-2018 NUTRITION HNO ID: [id number] Author: Cristy Mathews RD Service: Nutrition Therapy Author Type: Registered Dietitian Type: Nutrition Filed: 07/03/2018 3:04 PM Note Text: Consult rec'd to follow for needs. RN uncertain at this time. Starting CL's. Follow for needs as diet transitions. T Reid RD,LD Pager [phone] [facility] PROGRESSon 07-03-2018 PROGRESS HNO ID: [id number] Author: Durga Allison MD Service: Critical Care Author Type: Resident Type: Progress Notes Filed: 07/03/2018 2:52 PM Note Text: -- Attestation signed by Feliberto Romeo at 07/03/2018 5:07 PM [facility] STAFF PHYSICIAN NOTE OF PERSONAL INVOLVEMENT IN CARE I have reviewed the progress note obtained and documented by the resident and I personally participated in the arias components. I have discussed the case and management of the patient's care. The following comments revise or confirm relevant arias components of the note and have added additional documentation as needed. Interval history: Notes and meds reviewed. Limited ROS with the pt but full ROS with the RN done. Pt has some b/l chronic leg pain. No chest pain or other symptoms. Exam: 104/ 55, 96, 19, 96% on NC Morbidly obese, looks chronically ill Some distress with slight use of accessory muscles of breathing A, O times 1-2, no FND Decreased BS b/l Distant heart sounds Soft, obese, NT B/l pedal edema present Data: Na 139, K 3.8, Cl 105, BUN 28, Cr 1.2 WCC 25, Plt 108, Hb 10 PTT 49 7.32/ 48 - VBG LA 3.5 - 1.7 BCx - GNB - proteus UA - UTI CXR - mild pulmonary edema IMPRESSION: Ms Vang is a 67 year old white woman with PMH significant for morbid obesity, DM, HTN, A.fib on eliquis, depression, limited mobility, chronic Jose, and NH resident brought in for change in mental status and found to have septic shock. Acute encephalopathy from shock/ WHITLEY/ gabapentin use Septic shock from UTI Complicated catheter related UTI - POA WHITLEY from shock Gabapentin use in the setting of WHITLEY Thrombocytopenia Mild hyperbilirubinemia A.fib on AC but not an appropriate candidate for eliquis Morbid obesity/ likely PHOEBE MMP DM-II PLAN: - change Abx to zosyn only - a/w Cx - wean pressors to off - c/w heparin drip - monitor counts - DIC labs - LE dopplers - hold gabapentin - SSI - supportive care Code status: full PROGNOSIS: Guarded Patient/Family Updated: no family at the bedside PATIENT CHECKLIST Are restraints necessary: No Deep vein thrombosis prophylaxis administered? Yes Stress ulcer prophylaxis? Yes Jose catheter necessary? Yes Is central line essential? Yes Discussed with MICU team, residents, and pharm D. This patient has a high probability of sudden, clinically significant deterioration, which requires the highest level of physician preparedness to intervene urgently. I managed/supervised life or organ supporting interventions that required frequent physician assessment. I devoted my full attention to the direct care of this patient for the amount of time indicated below. Time I spent with family or surrogate(s) is included only if the patient was incapable of providing the necessary information or participating in medical decision making. Time devoted to teaching and to any procedures I billed separately is not included. Critical Care Documentation: The patient has the following organ/system impairment(s): Acute kidney injury, Complex life-threatening medical problem(s), Encephalopathy, Septic shock and Severe metabolic disorder Time spent providing critical care services: 40 minutes. SIGNATURE: Feliberto Romeo MD [facility] PAGER:[phone] -- CRITICAL CARE PROGRESS NOTE SERVICE DATE: 07/03/2018 SERVICE TIME: 8:59 AM REASON FOR CONSULT: Sepsis and Shock REQUESTING PHYSICIAN: Emergency Department? ADMITTING PROVIDER: No admitting provider for patient encounter. SERVICE DATE: 07/02/2018 SERVICE TIME: 8:59 AM Admission Date: 07/02/2018 AGE: [age] year old LOS: 1 days Subjective History: 67 yo F with PMHx of multiple chronic medical conditions including Type 2 diabetes mellitus, morbid obesity, essential hypertension, chronic atrial fibrillation, chronic pain syndrome presents from [facility] for evaluation of altered mental status. The patient has a chronic indwelling jose catheter secondary to mobility issues and reportedly was recently diagnosed with a UTI at the [facility]. By SNF staff, patient has been having declining mental status in the past 24 hours and this morning they noted she was "not herself." Patient at baseline is AOx3 and conversational, today noted to be moaning in response to pain, but not answering questions, AOx0. SNF staff sent UA and patient diagnosed with complicated UTI. NO antibiotics were started prior to transfer to ED. Patient sent to ED secondary to mental status changes in setting of infection. In ED, patient found to be in septic shock, NOT responsive to adequate fluid resuscitation with source of complicated UTI. Patient with WHITLEY in setting of UTI, Cr 1.35 (base 0.64), BUN 20. Patient with neutrophilic leukocytosis WBC 19.50. Lactic acid also elevated at 8.5. Patient started on broad spectrum IV abx, rocephin and vancomycin. Requiring pressor support via CVC. Cultures sent and pending at this time. Interval History Patient currently on Levo 14mcg, LR 100 mL/min, and Heparin 1000 units/hr. Patient is complaining of bilateral lower extremity pain but says she has this pain at baseline. She is still confused. She otherwise has no complaints at this time. 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, Lumbar Region Type 2 Diabetes Mellitus With Hyperglycemia ([facility]) Wounds, Multiple Paf (Paroxysmal Atrial Fibrillation) ([facility]) Osteoarthritis Hypertension Hyperlipemia Foot Ulcer ([facility]) Tia (Transient Ischemic Attack) Bmi 60.0-69.9, Adult ([facility]) Stroke ([facility]) Patient Noncompliant With Anticoagulant Medication Chronic Pain Cellulitis Morbid Obesity With Bmi of 70 and Over, Adult ([facility]) Severe Sepsis With Septic Shock ([facility]) PAST MEDICAL HISTORY Diagnosis Date - Back pain - Foot ulcer ([facility]) - Generalized weakness - Hip pain - Hyperlipemia - Hypertension - Morbid obesity ([facility]) - Muscle spasm of back - Osteoarthritis - PAF (paroxysmal atrial fibrillation) ([facility]) - Rotator cuff tear - Stroke ([facility]) - Type 2 diabetes mellitus with hyperglycemia ([facility]) PAST SURGICAL HISTORY Procedure Laterality Date - APPENDECTOMY - BLADDER SURGERY HX - TONSILLECTOMY HX - TUBAL LIGATION HX Social History Socioeconomic History Marital status: Spouse name: Not on file Number of children: Not on file Years of education: Not on file Highest education level: Not on file Social Needs Financial resource strain: Not on file Food insecurity - worry: Not on file Food insecurity - inability: Not on file Transportation needs - medical: Not on file Transportation needs - non-medical: Not on file Occupational History Occupation: Retired Tobacco Use Smoking status: Never Smoker Smokeless tobacco: Never Used Substance and Sexual Activity Alcohol use: No Drug use: No Sexual activity: Not Currently Other Topics Concerns: Not on file Social History Narrative Not on file VITAL SIGNS (last 24hrs min/max): Temp Av.8 ?C (98.2 ?F) Min: 36.8 ?C (98.2 ?F) Max: 36.8 ?C (98.2 ?F) Pulse Av.3 Min: 82 Max: 90 No data recorded Cuff BP Min: 71/44 Max: 87/59 Pain Level: 0 Vital signs reviewed. BP 102/55 Pulse 98 Temp (Src) 99.5 (Axillary) Resp 20 Ht 5' 5" (1.65m) Wt 424 lb 9.7 oz (192.6kg) SpO2 96% BMI 70.66 kg/(m2). O2 Therapy: Nasal Cannula, Liters: 4 Temp (24hrs), Av.7 ?C (99.8 ?F), Min:37.5 ?C (99.5 ?F), Max:38 ?C (100.4 ?F) NET FLUID BALANCE Intake/Output Summary (Last 24 hours) at 07/03/2018 0847 Last data filed at 07/03/2018 0800 Gross per 24 hour Intake 2923.2 ml Output 785 ml Net 2138.2 ml MEDICATIONS Current Facility-Administered Medications Medication Dose Route Frequency - NORepinephrine 16 mg in D5W 250 mL (LEVOPHED) 0.6-30 mcg/min INTRAVENOUS CONTINUOUS - potassium chloride 40 mEq oral powder (KLOR-CON) 40 mEq ORAL/FEEDING TUBE PRN - potassium chloride iv piggyback 20 mEq/100 mL 20 mEq INTRAVENOUS PRN - magnesium sulfate in water 2 g in sterile water 50 ml 2 g INTRAVENOUS PRN - sodium glycerophosphate 45 mmol in NaCl 0.9% 250 mL (GLYCOPHOS) 45 mmol INTRAVENOUS PRN - calcium gluconate 4 g in NaCl 0.9% 250 mL 4 g INTRAVENOUS PRN - acetaminophen 1,000 mg tab(s) (TYLENOL) 1,000 mg ORAL q 8 H PRN - atorvastatin 40 mg tab(s) (LIPITOR) 40 mg ORAL AT BEDTIME - albuterol 2.5 mg /3 mL (0.083 %) 2.5 mg (PROVENTIL) 2.5 mg INHALATION q 4 H PRN - bisacodyl 10 mg suppository (DULCOLAX) 10 mg RECTAL DAILY PRN - DULoxetine 60 mg cap(s) (CYMBALTA) 60 mg ORAL DAILY - NaCl 0.9% 10 mL 10 mL INTRAVENOUS q 12 H - NaCl 0.9% 20 mL 20 mL INTRAVENOUS PRN - dextrose 40 % 15 g 15 g ORAL PRN Or - glucagon 1 mg injection (GLUCAGEN) 1 mg INTRAMUSCULAR PRN Or - dextrose 50% in water 25 mL syringe 12.5 g INTRAVENOUS PRN - insulin lispro pen (rapid acting) (HumaLOG KWIKPEN) SUBCUTANEOUS q 6 H - heparin iv infusion (LOW DOSE ACS/NOMOGRAM) 25,000 units in NaCl 0.45% 250 mL PREMIX 0-3,000 Units/hr INTRAVENOUS CONTINUOUS And - heparin RATE CHANGE bolus 1,000-4,000 Units for subtherapeutic aptt results 1,000-4,000 Units INTRAVENOUS PRN - miconazole 2 % 1 application (MONISTAT-DERM,MAY) 1 application TOPICAL BID - ceFEPime iv piggyback 1 g in D5W 50 mL (MAXIPIME) 1 g INTRAVENOUS q 12 HR - lactated ringers infusion 100 mL/hr INTRAVENOUS CONTINUOUS - oxyCODONE IR 10 mg tab(s) (ROXICODONE) 10 mg ORAL q 4 H PRN - vancomycin 2 g in D5W 500 mL (VANCOCIN) 2 g INTRAVENOUS q 24 HR Lines, Drains, and Airways Line Central Line Triple Lumen 07/02/18 Non-tunneled Right Neck 1 day Drain Indwelling Urinary Catheter 07/02/18 1159 Jose 16 Fr less than 1 day PHYSICAL EXAM PERFORMED: Cardiovascular: Irregular rhythm and regular rate. Patient noted to be in atrial fibrillation, known to this patient Respiratory: Reduced breath sounds bilat and patient maintaining airway Abdomen: Soft and non-distended. Abdomen is morbidly obese. Patient does complain/moan to palpation of suprapubic region and localizes to pain. There is yeast rash noted to groin region Extremities: Edema- Yes, nonpitting. Patient with scaling of skin to extremities. Extremities are warm to touch. Capillary refill 2-3 seconds. Neurologic: patient opens eyes spontaneously and looks about the room. She does not answer questions, AOx0. She does not follow commands. She moans in response to and localizes to pain. Respiratory/Nursing Documentation: O2 Therapy: Nasal Cannula (07/03/18 0600) HEMODYNAMIC DATA: Reviewed NUTRITION: Enteral Feeds: No NPO DATA: Diagnostic tests reviewed for today's visit, films/specimens were personally reviewed by me: Most recent labs and imaging results. LABS: Recent Labs 07/03/18 0305 07/03/18 0130 07/02/18 1532 07/02/18 0729 CK -- -- -- 519* -- TROPI -- 0.039 < > 0.056* -- WBC 38.74* -- -- -- 19.50* RBC 3.71* -- -- -- 4.26 HB 11.5 -- -- -- 13.4 HCT 36.0 -- -- -- 42.1 MCV 97.0* -- -- -- 98.8* PLT 129* -- -- -- 220 GLUC 163* -- -- -- 182* BUN 28* -- -- -- 20* CREAT 1.26* -- -- -- 1.35* NA 139 -- -- -- 139 K 3.8 -- -- -- 3.8 CHLOR 105 -- -- -- 104 CO2 26 -- -- -- 26 TPROT -- -- -- -- 6.5 ALB -- -- -- -- 2.5* CA 7.8* -- -- -- 8.4* ALKPHOS -- -- -- -- 117* TBILI -- -- -- -- 1.2* AST -- -- -- -- 18 ALT -- -- -- -- 14 PTSEC -- -- -- -- 11.9 APTT -- 75.2* < > -- -- INR -- -- -- -- 1.16 MG -- -- -- 1.5* -- < > = values in this interval not displayed. ABG: Recent Labs 07/02/18 1237 PO2 50.4* PCO2 43.9 Assessment/Plan IMPRESSION: Critical Care Documentation: The patient has the following organ/system impairment(s): Acute kidney injury, Encephalopathy and Septic shock Septic Shock Continue LR and wean pressors. Continue broad spectrum abx WBC 39, increased from 19 yesterday Complicated urinary tract infection Patient currently on vanc and zosyn. Will continue broad spectrum abx while awaiting cultures Blood cultures grew gram negative bacilli Source control: jose catheter changed in ED Hematuria Hematuria in setting of OAC Irrigate as needed for clogged jose WHITLEY Cr 1.26, improving from 1.35 S/p 3000 cc IVF bolus MIVF Will continue to monitor, daily BMP Encephalopathy Likely secondary to #2 Will continue to monitor Thrombocytopenia DIC panel and repeat CBC this PM Lower Extremity Pain Bilateral US DVT study Type 2 DM Patient on humalog HOME medication Will order SSI during admission Essential Hypertension Patient hypotensive requiring pressor support Will HOLD all home BP medications Chronic Atrial fibrillation Will check EKG now Patient rate controlled at this time Holding beta-dyan in setting of hypotension, continue to monitor Patient on HOME OAC Eliquis 5 mg BID, will change to heparin gtt secondary to NPO status Morbid obesity Nutrition consult for dietary recommendations Patient NPO at this time secondary to mental status Chronic Pain syndrome, neuropathy Gabapentin home medication, will continue at half home dose in setting of WHITLEY: 300 mg 4 times daily Oxycodone 10 mg PO q4 hr PRN HOME medication SIGNATURE: Durga Allison MD PATIENT NAME: Salazar Coyle DATE: July 03, 2018 TIME: 8:59 AM Normal [facility] Protimeon 07-03-2018 INR Coag (PPP) [Relative time] 1.27 {INR} Normal 0.90-1.30 [facility] Comment on above: Result Comment: Nerissa min K Antagonist (VKA) Therapeutic Range: INR 2 to 3 (Target INR of 2.5) Note: For patients treated with VKA drugs, such as warfarin, the [place] 2012 Guideline recommends a therapeutic INR range of 2 to 3 (target INR of 2.5). This recommendation includes high-risk patients with antiphospholipid syndrome with previous arterial or venous thromboembolism, current-generation mechanical or bioprosthetic aortic heart valve replacement. VKA Therapeutic Range for some Mechanical Valve Replacement: INR 2.5 to 3.5 (Target INR of 3) Note: Patients with mechanical aortic valve replacement and additional risk factors for thromboembolic events (atrial fibrillation, previous thromboembolism, LV dysfunction, hypercoagulable conditions) or an older generation mechanical AVR (i.e., ball in-Cage) or any mechanical MVR should have a INR therapeutic range of 2.5 to 3.5 target INR of 3). Alexis BAKER, et al. Chest 2012; 141:7S-47S Pete RA et al. JACC 2017; 70: 252-289 Performed By: #### P T #### [facility] [address], [place] [address] PT Coag (PPP) [Time] 13.0 s Normal 9.7-13.0 [facility] Comment on above: Performed By: #### P T #### [facility] [address], [place] [address] THERAPY NTon 07-03-2018 THERAPY NT HNO ID: [id number] Author: Gloria CisnerosOtr/LJulio Montesinos Service: Occupational Therapy Author Type: Occupational Therapist Type: Therapy (PT/OT/Speech/Resp) Filed: 07/03/2018 3:00 PM Note Text: OCCUPATIONAL THERAPY MISSED VISIT SERVICE DATE: 07/03/2018 SERVICE TIME: 1457 to 1457 ROOM: [place] [address] Attempted Evaluation. Patient not seen due to Other: See Comment(Patient is a raheem lift at baseline and requires assist with ADL's. Patient no longer receives therapy at her facility and declines therapy at this time. Patient yells out in pain (01/09)).Will discontinue OT at this time. SIGNATURE: Gloria Montesinos OTR/Gómez PATIENT NAME: Salazar Coyle DATE: July 03, 2018 TIME: 2:59 PM Normal [facility] THERAPY NT HNO ID: [id number] Author: Ivy Chilel Service: Physical Therapy Author Type: Physical Therapist Type: Therapy (PT/OT/Speech/Resp) Filed: 07/03/2018 10:37 AM Note Text: PHYSICAL THERAPY MISSED VISIT SERVICE DATE: 07/03/2018 SERVICE TIME: 1034 to 1034 ROOM: [place] [address] Attempted Evaluation. Patient not seen due to Other: See Comment. Patient states she requires a raheem lift for transfers and no longer receives therapy at her facility. Will discontinue therapy services at this time as the patient is dependent for mobility. SIGNATURE: Ivy Chilel PT PATIENT NAME: Salazar Coyle DATE: July 03, 2018 TIME: 10:36 AM Normal [facility] Troponin Ion 07-03-2018 Troponin I.cardiac [Mass/Vol] 0.039 ng/mL Normal 0.015-0.045 [facility] Comment on above: Performed By: #### E RTRP #### [facility] [address] [id number] Vancomycin,Troughon 07-04-19 19 Vancomycin,Trough 11.7 mg/L Normal 10.0-20.0 [facility] Comment on above: Performed By: #### E RTRP #### [facility] [address] [address] Activated PTTon 07-02-2018 aPTT Coag (Bld) [Time] 46.5 s High 23.0-32.4 [facility] Comment on above: Result Comment: Unfr actionated Heparin Therapeutic Ranges: Standard Heparin Nomogram: 53 to 78 seconds (anti-Xa level of 0.3 to 0.7 U/mL) Low Dose/ACS Nomogram: 49 to 67 seconds (anti-Xa level of 0.2 to 0.5 U/mL) Stroke Treatment Nomogram: 49 to 67 seconds (anti-Xa level of 0.2 to 0.5 U/mL) Note: The APTT therapeutic range has been determined for the current lot of laboratory APTT reagent in use throughout the [facility]. Performed By: #### C BC1 #### [facility] [address] [address] CPKon 07-02-2018 CK [Catalytic activity/Vol] 519 U/L High 26-192 [facility] Comment on above: Performed By: #### C BC1 #### [facility] [address] [address] Comprehensive Panelon 2018 ALP [Catalytic activity/Vol] 117 U/L High 46-116 [facility] Comment on above: Performed By: #### P 14 #### [facility] [address] [address] Protein [Mass/Vol] 6.5 g/dL Normal 6.4-8.2 [facility] Comment on above: Performed By: #### P 14 #### [address] [place], [place] [address] Bilirubin [Mass/Vol] 1.2 mg/dL High 0.2-1.0 [facility] Comment on above: Performed By: #### P 14 #### [facility] [address], [place] [address] ALT [Catalytic activity/Vol] 14 U/L Normal 12-78 [facility] Comment on above: Performed By: #### P 14 #### [facility] [address], [place] [address] AST [Catalytic activity/Vol] 18 U/L Normal 9-37 [facility] Comment on above: Performed By: #### P 14 #### [facility] [address], [place] [address] Creatinine [Mass/Vol] 1.35 mg/dL High 0.51-0.95 [facility] Comment on above: Performed By: #### P 14 #### [facility] [address], [place] [address] Glucose [Mass/Vol] 182 mg/dL High 70-99 [facility] Comment on above: Performed By: #### P 14 #### [facility] [address], [place] [address] Albumin [Mass/Vol] 2.5 g/dL Low 3.4-5.0 [facility] Comment on above: Performed By: #### P 14 #### [facility] [address], [place] [address] Anion gap [Moles/Vol] 13 mmol/L Normal 8-16 [facility] Comment on above: Performed By: #### P 14 #### [facility] [address], [place] [address] Calcium [Mass/Vol] 8.4 mg/dL Low 8.5-10.1 [facility] Comment on above: Performed By: #### P 14 #### [facility] [address], [place] [address] CO2 [Moles/Vol] 26 mmol/L Normal 21-32 [facility] Comment on above: Performed By: #### P 14 #### [facility] [address] [address] Urea nitrogen [Mass/Vol] 20 mg/dL High 7-18 [facility] Comment on above: Performed By: #### P 14 #### [facility] [address] [address] Chloride [Moles/Vol] 104 mmol/L Normal 98-107 [facility] Comment on above: Performed By: #### P 14 #### [facility] [address] [address] Potassium [Moles/Vol] 3.8 mmol/L Normal 3.5-5.1 [facility] Comment on above: Performed By: #### P 14 #### [facility] [address] [address] Sodium [Moles/Vol] 139 mmol/L Normal 136-145 [facility] Comment on above: Performed By: #### P 14 #### [facility] [address] [address] Cult Bloodon 07-02-2018 Cult Blood Test performed at [facility] No growth Normal [facility] Comment on above: Performed By: #### P T #### [facility] [address] [address] Cult Blood Test performed at [facility] +Gram stain bottle I: Gram negative bacilli +Gram stain bottle II: Gram negative bacilli ORGANISM: *Proteus mirabilis (ID: 1) cultured in both bottles Normal [facility] Comment on above: Performed By: #### E RTRP #### [facility] [address] [address] Cult Urineon 07-02-2018 Cult Urine Test performed at [facility] Organisms cultured are indicative of probable nonclean catch specimen or contamination of specimen collection system. No further identification or susceptibility testing will be performed. Please submit new specimen. Plates will be held for 5 days. Normal [facility] Comment on above: Performed By: #### P T #### [facility] [address] [address] [facility] Troponin Ion 07-02-2018 Troponin I.cardiac [Mass/Vol] 0.062 ng/mL High 0.015-0.045 [facility] Comment on above: Performed By: #### E RTRP #### [facility] [address] [address] Troponin I.cardiac [Mass/Vol] 0.076 ng/mL High 0.015-0.045 [facility] Comment on above: Performed By: #### E RTRP #### [facility] [address] [address] ED NOTEon 07-02-2018 ED NOTE HNO ID: [id number] Author: Sandra CisnerosRnJulio Quiroz RN Service: Emergency Medicine Author Type: Registered Nurse Type: ED Notes Filed: 07/02/2018 2:37 PM Note Text: Anila Lee [phone] [facility] ED NOTE HNO ID: [id number] Author: Charis Wlison RN Service: Emergency Medicine Author Type: Registered Nurse Type: ED Notes Filed: 07/02/2018 9:26 AM Note Text: Blood cultures drawn and sent. [facility] ED NOTE HNO ID: [id number] Author: Charis Wilson RN Service: Emergency Medicine Author Type: Registered Nurse Type: ED Notes Filed: 07/02/2018 9:26 AM Note Text: Pulled facility jose. Bag full of blood and blood clots. Dark red blood. 400cc out. [facility] ED NOTE HNO ID: [id number] Author: Dinah Ca RN Service: ? Author Type: Registered Nurse Type: ED Notes Filed: 07/02/2018 9:06 AM Note Text: Bed: 01-ED Expected date: Expected time: Means of arrival: Comments: ROOM #28 [facility] ED NOTE HNO ID: [id number] Author: Oliver Roman RN Service: Emergency Medicine Author Type: Registered Nurse Type: ED Notes Filed: 07/02/2018 6:47 AM Note Text: Pt in significant pain upon any movement. Pt unable to tolerate movement from this rn. 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 Author Type: Registered Nurse Type: ED Notes Filed: 07/02/2018 6:35 AM Note Text: Bed: 28-ED Expected date: Expected time: Means of arrival: Comments: Kat-mental status change [facility] ED PROV NOTEon 07-02-2018 ED PROV NOTE HNO ID: [id number] Author: Nilay West MD Service: Emergency Medicine Author Type: Physician Type: ED Provider Notes Filed: 07/02/2018 3:56 PM Note Text: Attending Note I evaluated the patient and personally participated in the arias components. I agree with the resident's findings and plan as documented except where my note differs, and I discussed the case and management of the patient's care with the resident. Patient is sent from nursing facility for confusion. Her is at the bedside and said that yesterday she was having blood in her Jose catheter. She takes eliquis. Patient denies headache chest pain dyspnea or abdominal pain. She does answer yes or no questions but she doesn't fully cooperate and neurologic exam and cannot provide much history. Exam Woman supine eyes closed decreased alertness. She opens her eyes to voice and answers me about half the time. Pupils equal round reactive to light. Oropharynx pink and mucous membranes dry. Heart regular rate rhythm without murmurs rubs gallops. Lungs clear to auscultation without wheezes rhonchi or crackles anteriorly. Her abdomen is soft nontender nondistended with normal bowel sounds. She does have a panniculitis. She has a Jose catheter in with hematuria in the bag. She weakly squeezes both hands to command. She has symmetric facial expression. She does not cooperate and motor exam of her lower extremities or sensory exam anywhere. I am suspicion of UTI with sepsis because of her indwelling Jose catheter her new hematuria and the possibility of other signs and symptoms. Critical Care I spent a total of 30 minutes of critical care time in the evaluation and management of this patient. This was necessary to treat or prevent deterioration of the following condition(s): Cardiovascular impairment, Respiratory impairment, CUTTER HELPER impairment, Shock and Cardiac Arrest, which the patient had and/or has a high probability of suddenly developing. The patient received IV Fluids, Pressor Drugs and Consultation by ICU during the time that critical care was provided.I discussed the plan of care with the Resident and agree with the findings documented. Critical care time excludes separately billed procedures. I was present for the arias portions of the procedure of the central line insertion. MD Nilay Salgado MD 07/02/18 1556 [facility] ED PROV NOTE HNO ID: [id number] Author: Nilay West MD Service: Emergency Medicine Author Type: Physician Type: ED Provider Notes Filed: 07/02/2018 3:54 PM Note Text: ED Provider Note Patient Name: Salazar Coyle SERVICE DATE: 07/02/18 History Patient presents with: Altered Level Of Consciousness: pt arrives via [facility] from [facility] for change in mental status. pt recently dx with uti. jose in place upon arrival. aANDo x1 for this rn. afebrile and not speaking much. per facility - pt is usually conversant. changes noted over the last 24 hours. Salazar Coyle is a 67 year old female with history of multiple chronic medical problems including recently diagnosed urinary tract infection with chronic indwelling Jose catheter who presents with altered mental status. This morning, according to fpc staff she was not alert and oriented and "not herself". She complains now of suprapubic abdominal pain around her catheter as well as pain around her lower pannus. She has also been having worsening hematuria and is anticoagulated on Eliquis for atrial fibrillation. She also has morbid obesity and insulin-dependent diabetes. I spoke with the patient's who reiterated that she is full code. Patient is usually conversational and alert and oriented ?3. PAST MEDICAL HISTORY Diagnosis Date - Back pain - Foot ulcer (HCC) - Generalized weakness - Hip pain - Hyperlipemia - Hypertension - Morbid obesity (HCC) - Muscle spasm of back - Osteoarthritis - PAF (paroxysmal atrial fibrillation) (HCC) - Rotator cuff tear - Stroke (HCC) - Type 2 diabetes mellitus with hyperglycemia (HCC) PAST SURGICAL HISTORY Procedure Laterality Date - APPENDECTOMY - BLADDER SURGERY HX - TONSILLECTOMY HX - TUBAL LIGATION HX FAMILY HISTORY Problem Relation Age of Onset - Heart Mother - Diabetes Mother - Stroke Father - Cancer Other - Osteoporosis Other Social History Tobacco Use - Smoking status: Never Smoker - Smokeless tobacco: Never Used Substance and Sexual Activity - Alcohol use: No - Drug use: No - Sexual activity: Not on file ALLERGIES No Known Allergies Review of Systems Unable to perform ROS: Mental status change Gastrointestinal: Positive for abdominal pain. Negative for nausea and vomiting. Genitourinary: Positive for hematuria. Skin: Positive for rash and wound. Neurological: Negative for headaches. Physical Exam BP 87/59 Pulse 85 Temp (Src) 98.2 (Oral) Resp 19 Ht 5' 5" (1.65m) Wt 418 lb 14 oz (190.0kg) SpO2 95% BMI 69.70 kg/(m2). O2 Therapy: Nasal Cannula, Liters: 2 Physical Exam Constitutional: She appears ill. No distress. HENT: Head: Normocephalic and atraumatic. Nose: Nose normal. Eyes: Pupils are equal, round, and reactive to light. Conjunctivae and EOM are normal. Right eye exhibits no discharge. Left eye exhibits no discharge. Neck: Neck supple. No JVD present. No thyromegaly present. Cardiovascular: Normal rate, normal heart sounds and intact distal pulses. An irregularly irregular rhythm present. No murmur heard. Pulmonary/Chest: Effort normal. No respiratory distress. Diminished breath sounds bilaterally Abdominal: Soft. There is tenderness (A long erythematous areas of inflammation and suprapubically with deep palpation). There is no guarding. Musculoskeletal: She exhibits edema. She exhibits no deformity. Neurological: She is alert. No cranial nerve deficit or sensory deficit. She exhibits normal muscle tone. GCS eye subscore is 4. GCS verbal subscore is 4. GCS motor subscore is 6. Skin: Skin is warm and dry. Rash noted. She is not diaphoretic. There is erythema (On inner layers of pannus.). Psychiatric: She has a normal mood and affect. Her behavior is normal. Nursing note and vitals reviewed. Diagnostic Testing ED Labs Ordered and Reviewed - No data to display Procedures ED Course / Clinical Impression ED Course as of Jul 02 0984 Shine (Vicenta) Og's Documentation e Jul 02, 2018 0818 WBC: (!) 19.50 0819 to service criteria met with presumed source of infection of urinary tract infection/CAUTI with lactic acidosis of 8.5. patient will be moved to a resuscitation room. I spoke with family and they gave verbal consent for central venous access. Medical ICU will be consulted for disposition. 0835 When I went to re-evaluate the patient, fully catheter was still not changed. Nursing made aware. ICU resident evaluated the patient and will place central line. 834 Creatinine: (!) 1.35 Clinical Impressions as of Jul 02 932 Septic shock (HCC) Urinary tract infection associated with indwelling urethral catheter, initial encounter ([facility]) Panniculitis WHITLEY (acute kidney injury) ([facility]) MDM / Disposition / Plan 67-year-old female presents with signs and symptoms concerning for septic shock secondary to catheter associated urinary tract infection. She reportedly was diagnosed with URI tract infection and fpc but she does not have antibiotics on her medication list and there is no evidence of starting antibiotic on EMR. She presented hypertensive, confused and initial blood work showed lactic acidosis of 8.5 and a leukocytosis of 19,500. She was started on 3 L IV fluid bolus for 30mL/kg of ideal body weight. She was started empirically on Rocephin and blood and urine cultures were obtained and Jose catheter was ordered to be changed. Central venous access consent was obtained from family member/ who gave verbal consent. Disposition pending further lab work, urinalysis and ICU consultation. Patient signed out to Dr. Garcia pending reevaluation after IV fluid bolus with likely starting Levophed for septic shock. SIGNATURE: DO Shine Castañeda Res, DO Resident 07/02/18 0933 Nilay West MD 07/02/18 1554 [facility] HISTORY PHYSICALon 9 HISTORY PHYSICAL HNO ID: [id number] Author: Macy Ramon MD Service: Critical Care Author Type: Resident Type: HANDP Filed: 07/02/2018 10:22 AM Note Text: -- Attestation signed by Bear Santana at 07/02/2018 10:59 AM (Updated) [facility] STAFF PHYSICIAN NOTE OF PERSONAL INVOLVEMENT IN CARE I have reviewed the history and physical examination obtained and documented by the resident and I personally participated in the arias components. I have discussed the case and management of the patient's care. The following comments revise or confirm relevant arias components of the note. 67yo WF ECF resident due to immobility as a result of severe DJD and massive obesity who was brought to ED this AM due to decreased mental status and low blood pressure found to be as low as 68/48. IVFs given and started on Levophed now at 2mcg/min. Also on Eliquis for AFib. Chronic indwelling Jose at the ECF which was changed out yesterday per the and he says patient was "normal" yesterday. She now is stuporous to obtunded and will briefly open her eyes to name. BP now 89/48. BP 92/52 Pulse 82 Temp 36.8 ?C (98.2 ?F) (Oral) Resp 15 Ht 165.1 cm (5' 5") Wt (!) 190 kg (418 lb 14 oz) SpO2 97% BMI 69.70 kg/m? 24 hour Intake AND Output: No intake or output data in the 24 hours ending 07/02/18 1036 EXAM: Elderly age - appropriate obese WF intermittently labored breathing. Temp 98.2 P-82 R-15 HEENT: Absent upper dentition. Fair lower plate. Grade III airway (no history of PHOEBE) NECK: Thick with increased circumference. +Right IJV TLC in place. No stridor. No JVD in supine position. No carotid bruits. LUNGS: Generally clear A/L HEART: RRR without murmur rub or gallop. ABDOMEN: Obese with ++pannus. Distant BSs. No masses. No guarding or rebound. EXTREMITIES: No edema or rashes or effusions. No cyanosis. DATA: BLOOD GAS: Pending. No results for input(s): VPH, VPC2, VPO2C, RESPHCO3, BASEX, K5FRHEGO, PH, PCO2, RESPHCO3, BASEX, [id number] in the last 168 hours. Invalid input(s): PO2C CXR: No focal infiltrate No PTX CBC: Recent Labs 07/02/18728 WBC 19.50* HB 13.4 HCT 42.1 PLT 220 MCV 98.8* COAG: Recent Labs 07/02/18728 INR 1.16 BMP: Recent Labs 07/02/18728 GLUC 182* NA 139 K 3.8 CHLOR 104 CO2 26 ANION 13 BUN 20* CREAT 1.35* CHEM: Recent Labs 07/02/18728 ALB 2.5* TPROT 6.5 CA 8.4* HEPATIC: Recent Labs 07/02/18728 ALKPHOS 117* ALT 14 AST 18 TBILI 1.2* CARDIAC: Recent Labs 07/02/18728 PBNP 2,347 IMPRESSION: Septic shock secondary to CUTI--presumably from indwelling Jose as no U/A has been sent. Lactic acidosis with level 8.5 WHITLEY with Cr 1.35 Elevated Trop-I at 0.076 and NT-ProBNP of 2347--?PAH. IDDM with neuropathy Chronic pain from DJD--most prominent of right knee and hip. Lifelong nonsmoker Chronic AFib on Eliquis PLAN: IV ATBx and panculture Change out Jose Levophed as needed. IV Heparin for now and hold on DOACs Daily labs Serial troponins although likely up from low blood pressure May want to check ABG for ventilation Consider ECHO if not recently done? Consider TSH--was 2.69 on 01/06/18. Serial lactate levels q 6hrs. Patient/Family Updated: Patient's Next of Kin/Point of Contact, , spouse/significant other, updated regarding the goals of care, medical plan for the day, audit consultant recommendations, medical disposition and current medical condition/prognosis as and if clinically indicated. All questions and concerns were answered and addressed at this juncture. They were notified on July 02, 2018 at 1020AM. The duration of the conversation was 15 minutes. He requests patient be a full code at this time, although she has told him in the past she did not want heroic efforts to prolong her life. He asks this be addressed again with her when appropriate. This patient has a high probability of sudden, clinically significant deterioration, which requires the highest level of physician preparedness to intervene urgently. I managed/supervised life or organ supporting interventions that required frequent physician assessment. I devoted my full attention to the direct care of this patient for the amount of time indicated below. Time I spent with family or surrogate(s) is included only if the patient was incapable of providing the necessary information or participating in medical decision making. Time devoted to teaching and to any procedures I billed separately is not included. Critical Care Documentation: The patient has the following organ/system impairment(s): Acute kidney injury, Arrhythmias, Complex life-threatening medical problem(s), Encephalopathy, Respiratory failure (Acute, with Hypoxemia) and Septic shock Time spent providing critical care services: 50 minutes. SIGNATURE: Bear Santana MD [facility] PAGER:[phone] DATE of SERVICE: July 02, 2018 TIME of SERVICE: 10:36 AM -- CRITICAL CARE CONSULT NOTE SERVICE DATE: 07/02/2018 SERVICE TIME: 8:59 AM REASON FOR CONSULT: Sepsis and Shock REQUESTING PHYSICIAN: Emergency Department? ADMITTING PROVIDER: No admitting provider for patient encounter. SERVICE DATE: 07/02/2018 SERVICE TIME: 8:59 AM Admission Date: 07/02/2018 AGE: [age] year old LOS: 0 days Subjective 67 yo F with PMHx of multiple chronic medical conditions including Type 2 diabetes mellitus, morbid obesity, essential hypertension, chronic atrial fibrillation, chronic pain syndrome presents from [facility] for evaluation of altered mental status. History is obtained from medical record as well as ED staff as patient is altered, AOx0 and unable to provide information. The patient has a chronic indwelling jose catheter secondary to mobility issues and reportedly was recently diagnosed with a UTI at the [facility]. By SNF staff, patient has been having declining mental status in the past 24 hours and this morning they noted she was "not herself." Patient at baseline is AOx3 and conversational, today noted to be moaning in response to pain, but not answering questions, AOx0. SNF staff sent UA and patient diagnosed with complicated UTI. NO antibiotics were started prior to transfer to ED. Patient sent to ED secondary to mental status changes in setting of infection. In ED, patient found to be in septic shock, NOT responsive to adequate fluid resuscitation with source of complicated UTI. Patient with WHITLEY in setting of UTI, Cr 1.35 (base 0.64), BUN 20. Patient with neutrophilic leukocytosis WBC 19.50. Lactic acid also elevated at 8.5 Patient started on broad spectrum IV abx, rocephin and vancomycin. Requiring pressor support via CVC. Cultures sent and pending at this time. 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, Lumbar Region Type 2 Diabetes Mellitus With Hyperglycemia ([facility]) Wounds, Multiple Paf (Paroxysmal Atrial Fibrillation) ([facility]) Osteoarthritis Hypertension Hyperlipemia Foot Ulcer ([facility]) Tia (Transient Ischemic Attack) Bmi 60.0-69.9, Adult ([facility]) Stroke ([facility]) Patient Noncompliant With Anticoagulant Medication Chronic Pain Cellulitis Morbid Obesity With Bmi of 70 and Over, Adult ([facility]) PAST MEDICAL HISTORY Diagnosis Date - Back pain - Foot ulcer ([facility]) - Generalized weakness - Hip pain - Hyperlipemia - Hypertension - Morbid obesity ([facility]) - Muscle spasm of back - Osteoarthritis - PAF (paroxysmal atrial fibrillation) ([facility]) - Rotator cuff tear - Stroke ([facility]) - Type 2 diabetes mellitus with hyperglycemia ([facility]) PAST SURGICAL HISTORY Procedure Laterality Date - APPENDECTOMY - BLADDER SURGERY HX - TONSILLECTOMY HX - TUBAL LIGATION HX Social History Socioeconomic History Marital status: Spouse name: Not on file Number of children: Not on file Years of education: Not on file Highest education level: Not on file Social Needs Financial resource strain: Not on file Food insecurity - worry: Not on file Food insecurity - inability: Not on file Transportation needs - medical: Not on file Transportation needs - non-medical: Not on file Occupational History Occupation: Retired Tobacco Use Smoking status: Never Smoker Smokeless tobacco: Never Used Substance and Sexual Activity Alcohol use: No Drug use: No Sexual activity: Not Currently Other Topics Concerns: Not on file Social History Narrative Not on file VITAL SIGNS (last 24hrs min/max): Temp Av.8 ?C (98.2 ?F) Min: 36.8 ?C (98.2 ?F) Max: 36.8 ?C (98.2 ?F) Pulse Av.3 Min: 82 Max: 90 No data recorded Cuff BP Min: 71/44 Max: 87/59 Pain Level: 0 Vital signs reviewed. BP 74/42 Pulse 83 Temp (Src) 98.2 (Oral) Resp 16 Ht 5' 5" (1.65m) Wt 418 lb 14 oz (190.0kg) SpO2 97% BMI 69.70 kg/(m2). O2 Therapy: Nasal Cannula, Liters: 2 Temp (24hrs), Av.8 ?C (98.2 ?F), Min:36.8 ?C (98.2 ?F), Max:36.8 ?C (98.2 ?F) NET FLUID BALANCE No intake or output data in the 24 hours ending 07/02/18 0859 MEDICATIONS Current Facility-Administered Medications Medication Dose Route Frequency - NaCl 0.9% 2,500 mL iv bolus 2,500 mL INTRAVENOUS ONCE - lactated ringers 1,000 mL iv bolus 1,000 mL INTRAVENOUS ONCE - vancomycin 2 g in D5W 500 mL (VANCOCIN) 0.015 g/kg/dose INTRAVENOUS ONCE - NORepinephrine 16 mg in D5W 250 mL (LEVOPHED) 0.6-30 mcg/min INTRAVENOUS CONTINUOUS Lines, Drains, and Airways Line Peripheral 07/02/18 Admission to Hospital Short Right Forearm 20 Gauge less than 1 day Drain Indwelling Urinary Catheter 07/02/18 Admission to [facility] Jose less than 1 day PHYSICAL EXAM PERFORMED: Cardiovascular: Irregular rhythm and regular rate. Patient noted to be in atrial fibrillation, known to this patient Respiratory: Reduced breath sounds bilat and patient maintaining airway Abdomen: Soft and non-distended. Abdomen is morbidly obese. Patient does complain/moan to palpation of suprapubic region and localizes to pain. There is yeast rash noted to groin region Extremities: Edema- Yes, nonpitting. Patient with scaling of skin to extremities. Extremities are warm to touch. Capillary refill 2-3 seconds. Neurologic: patient opens eyes spontaneously and looks about the room. She does not answer questions, AOx0. She does not follow commands. She moans in response to and localizes to pain. Respiratory/Nursing Documentation: O2 Therapy: Nasal Cannula (07/02/18 0815) HEMODYNAMIC DATA: Reviewed NUTRITION: Enteral Feeds: No NPO DATA: Diagnostic tests reviewed for today's visit, films/specimens were personally reviewed by me: Most recent labs and imaging results. LABS: Recent Labs 07/02/18 0729 WBC 19.50* RBC 4.26 HB 13.4 HCT 42.1 MCV 98.8* PLT 220 GLUC 182* BUN 20* CREAT 1.35* NA 139 K 3.8 CHLOR 104 CO2 26 TPROT 6.5 ALB 2.5* CA 8.4* ALKPHOS 117* TBILI 1.2* AST 18 ALT 14 PTSEC 11.9 INR 1.16 ABG: Invalid input(s): [id number] Assessment/Plan IMPRESSION: Critical Care Documentation: The patient has the following organ/system impairment(s): Acute kidney injury, Encephalopathy and Septic shock 1. Septic Shock S/p 3000 cc IVF bolus NS Pressor support to maintain MAP > 65 MIVF 100 cc/hr NS 2. Complicated urinary tract infection S/p Vancomycin and Rocephin in ED Will continue broad spectrum abx while awaiting cultures F/u BCx, UCx Source control: jose catheter changed in ED 3. Hematuria Hematuria in setting of OAC Irrigate as needed for clogged jose 3. WHITLEY Cr 1.35, Baseline 0.62 S/p 3000 cc IVF bolus MIVF Will continue to monitor, daily BMP 4. Encephalopathy Likely secondary to #2 Will continue to monitor 5. Type 2 DM Patient on humalog HOME medication Will order SSI during admission 6. Essential Hypertension Patient hypotensive requiring pressor support Will HOLD all home BP medications 7. Chronic Atrial fibrillation Will check EKG now Patient rate controlled at this time Holding beta-dyan in setting of hypotension, continue to monitor Patient on HOME OAC Eliquis 5 mg BID, will change to heparin gtt secondary to NPO status 8. Morbid obesity Nutrition consult for dietary recommendations Patient NPO at this time secondary to mental status 9. Chronic Pain syndrome, neuropathy Gabapentin home medication, will continue at half home dose in setting of WHITLEY: 300 mg 4 times daily Oxycodone 10 mg PO q4 hr PRN HOME medication MMP CRITICAL CARE PLAN: Antibiotics , IV fluids and Vasopressors SIGNATURE: Macy Ramon MD PATIENT NAME: Salazar Coyle DATE: July 02, 2018 TIME: 8:59 AM [facility] Hemogramon 07-02-2018 Erythrocyte distribution width (RBC) [Ratio] 14.2 % Normal 11.7-14.4 [facility] Comment on above: Performed By: #### C BC1 #### [facility] [address], [place] [address] Hematocrit (Bld) [Volume fraction] 42.1 % Normal 34.1-44.9 [facility] Comment on above: Performed By: #### C BC1 #### [facility] [address], [place] [address] Hemoglobin (Bld) [Mass/Vol] 13.4 g/dL Normal 11.2-15.7 [facility] Comment on above: Performed By: #### C BC1 #### [facility] [address] [place] [address] MCH (RBC) [Entitic mass] 31.5 pg Normal 25.6-32.2 [facility] Comment on above: Performed By: #### C BC1 #### [place] [address] MCHC (RBC) [Mass/Vol] 31.8 % Normal 31.6-34.8 [facility] Comment on above: Performed By: #### C BC1 #### [facility] [address], [place] [address] MCV (RBC) [Entitic vol] 98.8 fL High 79.4-94.8 [facility] Comment on above: Performed By: #### C BC1 #### [address] [address] Platelet mean volume (Bld) [Entitic vol] 11.3 fL Normal 9.4-12.3 [facility] Comment on above: Performed By: #### C BC1 #### [facility] [address] [place], [place] [address] Platelets (Bld) [#/Vol] 220 thou/cmm Normal 182-369 [facility] Comment on above: Performed By: #### C BC1 #### [facility] [address] [place], [place] [address] RBC (Bld) [#/Vol] 4.26 mil/cmm Normal 3.93-5.22 [facility] Comment on above: Performed By: #### C BC1 #### [facility] [address] [place] [address] RDW SD 50.8 fl High 36.4-46.3 [facility] Comment on above: Performed By: #### C BC1 #### [facility] [address] [place] [address] WBC (Bld) [#/Vol] 19.50 thou/cmm High 3.98-10.04 [facility] Comment on above: Performed By: #### C BC1 #### [place] [address] Hgb A1con 07-02-2018 HbA1c (Bld) [Mass fraction] 6.6 % High 4.2-6.3 [facility] Comment on above: Result Comment: Meth od is National Glycohemoglobin Standardization Program (NGSP) compliant. Performed By: #### C BC1 #### [place] [address] HbA1c (Bld) [Mass fraction] 143 mg/dl Normal [facility] Comment on above: Performed By: #### C BC1 #### [place] [address] Lactic Acidon 07-02-2018 Lactate [Moles/Vol] 3.0 mmol/L Critically high 0.4-2.0 [facility] Comment on above: Performed By: #### E RTRP #### [place] [address] Lactate [Moles/Vol] 3.5 mmol/L Critically high 0.4-2.0 [facility] Comment on above: Performed By: #### C BC1 #### [place] [address] Lactate [Moles/Vol] 4.6 mmol/L High 0.5-2.2 [facility] Comment on above: Performed By: #### E DLAG #### [place] [address] MRSA Screenon 07-02-2018 MRSA DNA EZIO+probe Ql (Unsp spec) Test performed at [facility] No MRSA detected. Normal [facility] Comment on above: Performed By: #### P 14 #### [facility] [address], [place] [address] Magnesium Bloodon 07-02-2018 Magnesium [Mass/Vol] 1.5 mg/dL Low 1.6-2.6 [facility] Comment on above: Performed By: #### C BC1 #### [facility] [address], [place] [address] N-terminal Pro-BNPon 019 Natriuretic peptide B (Bld) [Mass/Vol] 2347 pg/mL Normal [facility] Comment on above: Result Comment: Acut e CHF Rule-in <50 yrs old >= 450 pg/ml >50 yrs old >= 900 pg/ml Abnormal Pro-BNP All patients >=300 pg/ml Performed By: #### P BNP #### [address] [address] PLAN OF CAREon 07-02-2018 PLAN OF CARE HNO ID: [id number] Author: Judy Lemon (Pharmacist) Service: ? Author Type: Pharmacist Type: Plan of Care Filed: 07/02/2018 4:55 PM Note Text: MEDICATION HISTORY AND MEDICATION RECONCILIATION Patient Name:Keya Coyle : 1950 Source of history:retirement/Other [facility] Kat Garcia Medication Nonadherence Identified: No barriers noted The above information represents the best possible medication history: Yes Reconciliation completed? 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 All other morning medications were not administered. Allergies: ALLERGIES No Known Allergies Preferred Pharmacy: Kat Garcia [phone] Current [employer]IST Medications: Prior to Admission medications as of 07/02/18 1635 Medication Sig Last Dose Taking DULoxetine (CYMBALTA) 60 mg capsule Take 60 mg by mouth once daily. 07/01/2018 at Unknown time Yes FA/mv,Ca,iron,min/lycopene /lut (MULTIVITAL ORAL) Take 1 tablet by mouth once daily. 07/01/2018 at Unknown time Yes insulin glargine (BASAGLAR KWIKPEN U-100 INSULIN) 100 unit/mL (3 mL) inpn Inject 65 Units subcutaneously daily at bedtime. 07/01/2018 at Unknown time Yes cyclobenzaprine (FLEXERIL) 10 mg tablet Take 10 mg by mouth every 8 hours as needed for Muscle Spasm. 07/01/2018 at Unknown time Yes bisacodyl (DULCOLAX) 10 mg supp 10 mg by RECTAL route once daily as needed for Constipation. 07/01/2018 at Unknown time Yes miconazole (MICONAZORB AF) 2 % powder Apply 1 application to affected area twice daily. Apply to breast, groin, and abdominal folds. 07/01/2018 at Unknown time Yes acetaminophen (TYLENOL) 500 mg tablet Take 1,000 mg by mouth every 8 hours as needed. 07/01/2018 at Unknown time Yes amitriptyline (ELAVIL) 25 mg tablet Take 25 mg by mouth daily at bedtime. 07/01/2018 at Unknown time Yes baclofen (LIORESAL) 10 mg tablet Take 10 mg by mouth three times daily. 07/01/2018 at Unknown time Yes oxyCODONE IR (ROXICODONE) 10 mg tab Take 10 mg by mouth every 4 hours as needed (pain). 07/01/2018 at Unknown time Yes albuterol (PROVENTIL) 2.5 mg /3 mL (0.083 %) nebulizer solution Use 3 mL via nebulizer every 4 hours as needed for Wheezing/Shortness of Breath. 07/01/2018 at Unknown time Yes insulin lispro (HUMALOG KWIKPEN) 100 unit/mL inpn Inject 15 Units subcutaneously three times daily before meals. 07/01/2018 at Unknown time Yes insulin lispro (HUMALOG KWIKPEN) 100 unit/mL pen Inject 0-10 Units subcutaneously three times daily before meals. If Blood Glucose (mg/dL) is: Less than 110 Give 0 units 111-150 Give 0 units 151-200 Give 2 units 201-250 Give 4 units 251-300 Give 6 units 301-350 Give 8 units 351-400 Give 10 units Greater than 400 Give 10 units and Notify Provider 07/01/2018 at Unknown time Yes amLODIPine (NORVASC) 5 mg tablet Take 1 tablet by mouth once daily. 07/01/2018 at Unknown time Yes atorvastatin (LIPITOR) 40 mg tablet Take 1 tablet by mouth daily at bedtime. 07/01/2018 at Unknown time Yes metoprolol tartrate, short acting, (LOPRESSOR) 25 mg tablet Take 0.5 tablets by mouth every 12 hours. 07/01/2018 at Unknown time Yes miconazole (MONISTAT-DERM,MAY) 2 % cream Apply 1 application to affected area twice daily. Patient taking differently: Apply 1 application to affected area twice daily. Apply to vagina 07/01/2018 at Unknown time Yes gabapentin (NEURONTIN) 600 mg tablet Take 600 mg by mouth four times daily. 07/01/2018 at Unknown time Yes lidocaine (LIDODERM) 5 % Apply 3 Patches as directed once daily. Two patches to right hip, 1 patch to left thigh 07/02/2018 at 0600 Yes losartan (COZAAR) 100 mg tablet Take 100 mg by mouth once daily. 07/01/2018 at Unknown time Yes JULES LEMON, PHARMACIST July 02, 2018 4:53 PM [facility] PLAN OF CARE HNO ID: [id number] Author: Rocio Andrade (Dicer Operator) Service: Pharmacy Author Type: Thermoplastic Technician Type: Plan of Care Filed: 07/02/2018 9:26 AM Note Text: MEDICATION HISTORY Patient Name:Keya Coyle : 1950 Source of history:retirement/Other [facility] - Kat Garcia Medication Nonadherence Identified: No barriers noted The above information represents the best possible medication history: Yes Additional comments: Med list obtained from Kat Garcia . Verified with nurse from [facility] that patient did not receive all of her morning medications. The only medication they administered was her lidocaine patches at 0600 today (07/02/2018). Allergies: ALLERGIES No Known Allergies Preferred Pharmacy: N/A Current [employer]IST Medications: Prior to Admission medications as of 07/02/18 0742 Medication Sig Last Dose Taking DULoxetine (CYMBALTA) 60 mg capsule Take 60 mg by mouth once daily. 07/01/2018 at Unknown time Yes FA/mv,Ca,iron,min/lycopene /lut (MULTIVITAL ORAL) Take 1 tablet by mouth once daily. 07/01/2018 at Unknown time Yes insulin glargine (BASAGLAR KWIKPEN U-100 INSULIN) 100 unit/mL (3 mL) inpn Inject 65 Units subcutaneously daily at bedtime. 07/01/2018 at Unknown time Yes cyclobenzaprine (FLEXERIL) 10 mg tablet Take 10 mg by mouth every 8 hours as needed for Muscle Spasm. 07/01/2018 at Unknown time Yes bisacodyl (DULCOLAX) 10 mg supp 10 mg by RECTAL route once daily as needed for Constipation. 07/01/2018 at Unknown time Yes miconazole (MICONAZORB AF) 2 % powder Apply 1 application to affected area twice daily. Apply to breast, groin, and abdominal folds. 07/01/2018 at Unknown time Yes acetaminophen (TYLENOL) 500 mg tablet Take 1,000 mg by mouth every 8 hours as needed. 07/01/2018 at Unknown time Yes amitriptyline (ELAVIL) 25 mg tablet Take 25 mg by mouth daily at bedtime. 07/01/2018 at Unknown time Yes baclofen (LIORESAL) 10 mg tablet Take 10 mg by mouth three times daily. 07/01/2018 at Unknown time Yes oxyCODONE IR (ROXICODONE) 10 mg tab Take 10 mg by mouth every 4 hours as needed (pain). 07/01/2018 at Unknown time Yes albuterol (PROVENTIL) 2.5 mg /3 mL (0.083 %) nebulizer solution Use 3 mL via nebulizer every 4 hours as needed for Wheezing/Shortness of Breath. 07/01/2018 at Unknown time Yes apixaban (ELIQUIS) 5 mg tab(s) Take 1 tablet by mouth twice daily. 07/01/2018 at Unknown time Yes insulin lispro (HUMALOG KWIKPEN) 100 unit/mL inpn Inject 15 Units subcutaneously three times daily before meals. 07/01/2018 at Unknown time Yes insulin lispro (HUMALOG KWIKPEN) 100 unit/mL pen Inject 0-10 Units subcutaneously three times daily before meals. If Blood Glucose (mg/dL) is: Less than 110 Give 0 units 111-150 Give 0 units 151-200 Give 2 units 201-250 Give 4 units 251-300 Give 6 units 301-350 Give 8 units 351-400 Give 10 units Greater than 400 Give 10 units and Notify Provider 07/01/2018 at Unknown time Yes amLODIPine (NORVASC) 5 mg tablet Take 1 tablet by mouth once daily. 07/01/2018 at Unknown time Yes atorvastatin (LIPITOR) 40 mg tablet Take 1 tablet by mouth daily at bedtime. 07/01/2018 at Unknown time Yes metoprolol tartrate, short acting, (LOPRESSOR) 25 mg tablet Take 0.5 tablets by mouth every 12 hours. 07/01/2018 at Unknown time Yes miconazole (MONISTAT-DERM,MAY) 2 % cream Apply 1 application to affected area twice daily. Patient taking differently: Apply 1 application to affected area twice daily. Apply to vagina 07/01/2018 at Unknown time Yes gabapentin (NEURONTIN) 600 mg tablet Take 600 mg by mouth four times daily. 07/01/2018 at Unknown time Yes lidocaine (LIDODERM) 5 % Apply 3 Patches as directed once daily. Two patches to right hip, 1 patch to left thigh 07/02/2018 at 0600 Yes losartan (COZAAR) 100 mg tablet Take 100 mg by mouth once daily. 07/01/2018 at Unknown time Yes Patient compliance: Good Clarifications Made: None Medications Added: Miconazole 2% powder and acetaminophen 500mg. Medications Discontinued and Reason: cyclobenzaprine (FLEXERIL) 10 mg tablet Dosage adjustment bisacodyl (DULCOLAX) 10 mg supp Dosage adjustment amoxicillin-clavulanic acid (AUGMENTIN) 875-125 mg per tablet Course of therapy completed furosemide (LASIX) 40 mg tablet Discontinued by another Health Care Provider losartan (COZAAR) 100 mg tablet Duplicate Entry NOVOFINE 30 30 gauge x 1/3" ndle Erroneous entry oxyCODONE-acetaminophen (PERCOCET) 7.5-325 mg tablet Discontinued by another Health Care Provider polyethylene glycol 3350 (MIRALAX, GLYCOLAX) 17 gram packet Discontinued by another Health Care Provider SIMVASTATIN ORAL Discontinued by another Health Care Provider lactobacillus rhamnosus (CULTURELLE) 15 billion cell capsule Discontinued by another Health Care Provider Current Short-Term Medications: None Medications Currently on Hold and Reason: None History of PNA, COPD, CHF, AMI: None Patient is a 30 day readmission: No Total Time Spent Reviewing Patient's Medications: 40 minutes Rocio Andrade (Dicer Operator) [phone] July 02, 2018 9:15 AM Normal [facility] PROCEDUREon 07-02-2018 PROCEDURE HNO ID: [id number] Author: Macy Ramon MD Service: Critical Care Author Type: Resident Type: Procedures Filed: 07/02/2018 11:08 AM Note Text: -- Attestation signed by Bear Santana at 07/02/2018 2:05 PM I was aware of the procedure needing to be done for emergent circumstances given the patient in septic shock and requiring vasopressor usage. I was available in the department to assist and made aware by Dr. Ramon of the patient status. The line was easily placed with US guidance and no obvious complications and no PTX on CXR. -- CENTRAL VENOUS CATHETER INSERTION NOTE SERVICE DATE: 07/02/2018 SERVICE TIME: 829 LOCATION: ED/ED CATHETER PLACEMENT: Elective PRE-PROCEDURE CHECKLIST: Consent obtained from via telephone by ED team (2) Patient Identifiers checked TYPE OF CATHETER: 7 frTriple lumen - uncoated INSERTION SITE: Internal Jugular - right. INDICATIONS: Medication administration Fluids/blood products Central access POST-PROCEDURE CHECKLIST Sterile field maintained throughout the procedure: Yes Number of attempts (number of skin breaks): 1 Follow-up CXR: Ordered (subclavian or IJ attempted) Image reviewed by myself: CVC in proper position. No evidence of PTX Type of Dressing: Transparent Dressing Applied By: Physician Complications: None Post Operative Condition: unchanged SIGNATURE: Macy Ramon MD PATIENT NAME: Salazar Coyle DATE: July 02, 2018 TIME: 11:05 AM Normal [facility] Phosphorus Bloodon 9 Phosphate [Mass/Vol] 2.4 mg/dL Low 2.5-4.9 [facility] Comment on above: Performed By: #### C BC1 #### [facility] [address] [place], [place] [address] Protimeon 07-02-2018 INR Coag (PPP) [Relative time] 1.16 {INR} Normal 0.90-1.30 [facility] Comment on above: Result Comment: Nerissa min K Antagonist (VKA) Therapeutic Range: INR 2 to 3 (Target INR of 2.5) Note: For patients treated with VKA drugs, such as warfarin, the [place] 2012 Guideline recommends a therapeutic INR range of 2 to 3 (target INR of 2.5). This recommendation includes high-risk patients with antiphospholipid syndrome with previous arterial or venous thromboembolism, current-generation mechanical or bioprosthetic aortic heart valve replacement. VKA Therapeutic Range for some Mechanical Valve Replacement: INR 2.5 to 3.5 (Target INR of 3) Note: Patients with mechanical aortic valve replacement and additional risk factors for thromboembolic events (atrial fibrillation, previous thromboembolism, LV dysfunction, hypercoagulable conditions) or an older generation mechanical AVR (i.e., ball in-Cage) or any mechanical MVR should have a INR therapeutic range of 2.5 to 3.5 target INR of 3). Alexis GH, et al. Chest 2012; 141:7S-47S Pete RA et al. [facility] 2017; 70: 252-289 Performed By: #### P T #### [facility] [address] [place] [address] PT Coag (PPP) [Time] 11.9 s Normal 9.7-13.0 [facility] Comment on above: Performed By: #### P T #### [facility] [address], [place] [address] Troponin Ion 07-02-2018 Troponin I.cardiac [Mass/Vol] 0.050 ng/mL High 0.015-0.045 [facility] Comment on above: Performed By: #### C BC1 #### [facility] [address] [place] [address] Troponin I.cardiac [Mass/Vol] 0.056 ng/mL High 0.015-0.045 [facility] Comment on above: Performed By: #### C BC1 #### [facility] [address] [place] [address] Urinalysis Routineon 019 Bacteria LM.HPF (Urine sed) [#/Area] 4+ Abnormal None [facility] Comment on above: Performed By: #### U RIN2 #### [place] [address] Bilirubin (U) [Mass/Vol] * Normal Negative [facility] Comment on above: Performed By: #### U RIN2 #### [place] [address] Comment Urines See Below Normal [facility] Comment on above: Result Comment: [place] r abnormal-macroscopic not done. Performed By: #### U RIN2 #### [place] [address] Ep Cells Urine NONE Normal 0.0-5.0 [facility] Comment on above: Performed By: #### U RIN2 #### [place] [address] Glucose Ql (U) * Normal Negative [facility] Comment on above: Performed By: #### U RIN2 #### [place] [address] Hemoglobin,Urine * Normal Negative [facility] Comment on above: Performed By: #### U RIN2 #### [place] [address] Hyaline Cast NONE Normal 0.0-1.0 [facility] Comment on above: Performed By: #### U RIN2 #### [place] [address] Ketone Urine * Normal Negative [facility] Comment on above: Performed By: #### U RIN2 #### [place] [address] Leukocytes Esterase * Normal Negative [facility] Comment on above: Performed By: #### U RIN2 #### [place] [address] Nitrites Urine * Normal Negative [facility] Comment on above: Performed By: #### U RIN2 #### [place] [address] pH (U) * Normal 5.0-8.0 [facility] Comment on above: Performed By: #### U RIN2 #### [place] [address] Protein (U) [Mass/Vol] * Normal Negative [facility] Comment on above: Performed By: #### U RIN2 #### [place] [address] RBC LM.HPF (Urine sed) [#/Area] /[HPF] High 0.0-5.0 [facility] Comment on above: Performed By: #### U RIN2 #### [place] [address] Specific [place], Ur 1.024 Normal 1.005-1.030 [facility] Comment on above: Performed By: #### U RIN2 #### [place] [address] Urobilinogen,Ur * Normal 0.0-1.0 [facility] Comment on above: Performed By: #### U RIN2 #### [place] [address] WBC LM.HPF (Urine sed) [#/Area] 36.0-50 Abnormal 0.0-5.0 [facility] Comment on above: Performed By: #### U RIN2 #### [place] [address] Appearance (U) 3+ (CLOUDY) Normal [facility] Comment on above: Performed By: #### U RIN2 #### [place] [address] Color (U) RED Normal [facility] Comment on above: Performed By: #### U RIN2 #### [place] [address] Venous Blood Gason 9 Base Excess -1.3 mmol/L Normal -3.0-3.0 [facility] Comment on above: Performed By: #### C BC1 #### [facility] [address], [place] [address] HCO3 (Bld) [Moles/Vol] 24.5 mmol/L Normal 21.0-30.0 [facility] Comment on above: Performed By: #### C BC1 #### [facility] [address], [place] [address] O2% Sat Venous 95.6 % High 18.0-74.8 [facility] Comment on above: Performed By: #### C BC1 #### [facility] [address], [place] [address] PCO2 Venous 48.6 mm Hg Normal 40.6-60.0 [facility] Comment on above: Performed By: #### C BC1 #### [facility] [address] [place], [place] [address] pH Venous 7.323 Normal 7.320-7.430 [facility] Comment on above: Performed By: #### C BC1 #### [facility] [address] [place], [place] [address] PO2 Venous 80.1 mm Hg High 15.9-37.5 [facility] Comment on above: Performed By: #### C BC1 #### [facility] [address] [place], [place] [address] Base Excess -3.2 mEq/L Low -2.5 to 2.5 [facility] Comment on above: Performed By: #### E DVBG #### [facility] [address] [place], [place] [address] HCO3 (Bld) [Moles/Vol] 22.2 mmol/L Normal 21.0-30.0 [facility] Comment on above: Performed By: #### E DVBG #### [facility] [address] [place], [place] [address] PCO2 Venous 43.9 mm Hg Normal 40.6-60.0 [facility] Comment on above: Performed By: #### E DVBG #### [facility] [address] [place] [address] pH Venous 7.324 Normal 7.320-7.430 [facility] Comment on above: Performed By: #### E DVBG #### [facility] [address] [place] [address] PO2 Venous 50.4 mm Hg High 15.9-37.5 [facility] Comment on above: Performed By: #### E DVBG #### [facility] [address] [place] [address] ED NOTEon 02-21-2018 ED NOTE HNO ID: [id number] Author: Dalia CisnerosRn) MATHEUS Mayer Service: Emergency Medicine Author Type: Registered Nurse Type: ED Notes Filed: 02/21/2018 6:39 AM Note Text: [facility] to pick patient up Normal [facility] ED NOTE HNO ID: [id number] Author: Dalia CisnerosRn) MATHEUS Mayer Service: Emergency Medicine Author Type: Registered Nurse Type: ED Notes Filed: 02/21/2018 5:09 AM Note Text: Spoke with RES regarding patient's want to speak with him Normal [facility] ED NOTE HNO ID: [id number] Author: Dalia (Rn) MATHEUS Mayer Service: Emergency Medicine Author Type: Registered Nurse Type: ED Notes Filed: 02/21/2018 3:26 AM Note Text: Per EMS, [facility] staff was transferring patient into new bed via raheem lift. Patient is over 500 lbs and once they laid patient down in bed she began carrying on that her right leg/hip is hurting. Per [facility] staff right hip pain is chronic Normal [facility] ED NOTE HNO ID: [id number] Author: Charis CisnerosRn) Donald RN Service: (none) Author Type: Registered Nurse Type: ED Notes Filed: 02/21/2018 3:14 AM Note Text: Bed: 10-ED Expected date: Expected time: Means of arrival: Comments: Kat/hip pain Normal [facility] ED PROV NOTEon 02-21-2018 ED PROV NOTE HNO ID: [id number] Author: Nany Ward DO Service: Emergency Medicine Author Type: Physician Type: ED Provider Notes Filed: 02/21/2018 5:52 AM Note Text: ED Provider Note Patient Name: Salazar Coyle SERVICE DATE: 02/21/18 History Patient presents with: Hip Pain The patient is an obese 67 year old female with a significant past medical history of generalized weakness, paroxysmal atrial fibrillation, type 2 diabetes, hypertension, and hyperlipidemia, who presents to the ED for evaluation of right hip pain. Per EMS, [facility] staff was transferring patient into new bed via raheem lift. After transfer, the patient complained of worsening right leg and hip pain. She states she has had this discomfort for over 20 years, but it has been increasingly more painful. The pain is most pronounced over the lateral aspect of the hip, and the discomfort does not radiate to her groin. The patient's symptoms are made worse with movement. The patient has not tried anything for her symptoms. PAST MEDICAL HISTORY Diagnosis Date - Back pain - Foot ulcer (HCC) - Generalized weakness - Hip pain - Hyperlipemia - Hypertension - Morbid obesity (HCC) - Muscle spasm of back - Osteoarthritis - PAF (paroxysmal atrial fibrillation) ([facility]) - Rotator cuff tear - Stroke ([facility]) - Type 2 diabetes mellitus with hyperglycemia ([facility]) PAST SURGICAL HISTORY Procedure Laterality Date - APPENDECTOMY - BLADDER SURGERY HX - TONSILLECTOMY HX - TUBAL LIGATION HX FAMILY HISTORY Problem Relation Age of Onset - Heart Mother - Diabetes Mother - Stroke Father - Cancer Other - Osteoporosis Other Social History Social History Main Topics - Smoking status: Never Smoker - Smokeless tobacco: Never Used - Alcohol use No - Drug use: No - Sexual activity: Not on file ALLERGIES No Known Allergies Review of Systems Constitutional: Negative for chills and fever. Respiratory: Negative for cough and shortness of breath. Cardiovascular: Negative for chest pain. Gastrointestinal: Negative for abdominal pain, nausea and vomiting. Musculoskeletal: Positive for arthralgias and myalgias. Negative for back pain, neck pain and neck stiffness. Skin: Negative for rash and wound. Neurological: Negative for weakness, numbness and headaches. Physical Exam BP 132/58 Pulse 66 Temp (Src) 98.3 (Oral) Resp 18 Ht 5' 7" (1.70m) Wt 506 lb (229.5kg) SpO2 96% BMI 79.23 kg/(m2). Physical Exam Constitutional: She is oriented to person, place, and time. She appears well-developed and well-nourished. No distress. Obese HENT: Head: Normocephalic and atraumatic. Right Ear: External ear normal. Left Ear: External ear normal. Eyes: Pupils are equal, round, and reactive to light. Neck: Normal range of motion. Cardiovascular: Normal rate, regular rhythm and normal heart sounds. Pulmonary/Chest: Effort normal and breath sounds normal. No respiratory distress. She has no wheezes. She has no rales. Abdominal: Soft. Bowel sounds are normal. She exhibits no distension. There is no tenderness. There is no guarding. Musculoskeletal: Normal range of motion. She exhibits tenderness. Physical exam demonstrates pain to palpation over the lateral aspect of the right hip. The patient does not have pain to palpation with internal and external log roll. The patient has palpable DP and PT pulses. The patient is neurovascularly intact distal to the affected area. No obvious deformity noted. Neurological: She is alert and oriented to person, place, and time. No cranial nerve deficit. Skin: Skin is warm and dry. Nursing note and vitals reviewed. Diagnostic Testing Results for orders placed or performed during the hospital encounter of 02/21/18 XR HIP GENERAL 3V PELV/AP/LAT RT Result Value Ref Range Tobacco Primer Machine Operator TECHNIQUE: KNEE LIMITED 2V AP/LAT RIGHT, FEMUR 2V AP/LAT RIGHT, HIP 3V PELV/AP/LAT RIGHT x-rays EXAM DATE: 02/21/2018 4:55 AM COMPARISON STUDIES: None CLINICAL HISTORY: Bone pain, knee femur hip RESULT: Right knee: Osteopenia. Suboptimal positioning on frontal and lateral films. Severe lateral compartment narrowing. Tricompartmental osteophytes. Inadequate evaluation for possible joint effusion. No gross acute fracture or dislocation within the limitations. Femur: Suboptimal positioning on frontal and lateral films. Right hip joint maintained. No gross acute fracture or dislocation. Hip: Images degraded by patient body habitus. Right hip joint maintained. No acute fracture or dislocation. Left hip and SI joints are maintained. Lower lumbar degenerative changes. 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 Suboptimal positioning on frontal and lateral films. Severe lateral compartment narrowing. Tricompartmental osteophytes. Inadequate evaluation for possible joint effusion. No gross acute fracture or dislocation within the limitations. Femur: Suboptimal positioning on frontal and lateral films. Right hip joint maintained. No gross acute fracture or dislocation. Hip: Images degraded by patient body habitus. Right hip joint maintained. No acute fracture or dislocation. Left hip and SI joints are maintained. Lower lumbar degenerative changes. 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 Suboptimal positioning on frontal and lateral films. Severe lateral compartment narrowing. Tricompartmental osteophytes. Inadequate evaluation for possible joint effusion. No gross acute fracture or dislocation within the limitations. Femur: Suboptimal positioning on frontal and lateral films. Right hip joint maintained. No gross acute fracture or dislocation. Hip: Images degraded by patient body habitus. Right hip joint maintained. No acute fracture or dislocation. Left hip and SI joints are maintained. Lower lumbar degenerative changes. IMPRESSION: No gross acute abnormality right knee, femur, or hip, limitations as noted Procedures ED Course / Clinical Impression ED Course as of Feb 21 05 Nany Ward's Documentation [facility] Feb 21, 2018 0528 ED Attending attestation: I evaluated the patient and personally participated in the arias components and procedures. I agree with the resident's findings and plan as documented and have discussed the case and management of the patient's care with the resident. HPI: 67 year old female presents complaining of R leg pain x 20 years. She states she was transferring from one bed to another this evening, fell into the other bed and developed worsening RLE pain. She denies any other significant trauma, fever/chills, cp, sob, syncope, open wounds or other complaints. Attending exam: Patient morbidly obese nontoxic female in no distress. Skin: unremarkable, no open wounds. No erythema. Neuro: full sensation and motor, no focal deficits. Attending MDM: Patient treated with pain medication. Xrays are nondiagnostic for acute findings. Patient's mechanism for significant trauma is low, she has had this pain for 20 years. She will be discharged back to nursing facility and instructed to f/u with her doctor. Advised to return to the ED for anything new or worse. Clinical Impressions as of Feb 22 552 Hip pain, acute, right Primary osteoarthritis of right knee MDM / Disposition / Plan The patient is an obese 67 year old female with a significant past medical history of generalized weakness, paroxysmal atrial fibrillation, type 2 diabetes, hypertension, and hyperlipidemia, who presents to the ED for evaluation of right hip pain. The patient was evaluated by myself and the attending physician. The patient is hemodynamically stable. The patient appears to be in no acute distress. Physical exam consistent with a contusion. X-rays are negative for acute fracture or dislocation. I do not believe the patient requires additional laboratory studies or imaging at this time. The patient was informed about these findings. The patient was given oxycodone and Dilaudid, which improved her symptoms. Follow-up instructions and return precautions were discussed. All questions were answered. The patient was agreeable with this plan. The patient was discharged in stable condition. SIGNATURE: MD Jacinto Alvarez (Res) MD Erica Resident 02/21/18 0523 Nany Ward DO 02/21/18 0552 [facility] CASE MANAGEMon 01-16-2018 CASE MANAGEM HNO ID: [id number] Author: Swathi CisnerosRn) MATHEUS Mart Service: Care Management Author Type: Registered Nurse Type: Care Mgt Progress Note Filed: 01/16/2018 12:09 PM Note Text: CARE MANAGEMENT DISCHARGE NOTE SERVICE DATE: 01/16/2018 SERVICE TIME: 12:02 PM LOS: 11 days Admission Date: 01/04/2018 DISCHARGE ARRANGEMENT (list agency and phone number) [facility] facility: Was an expedited discharge program used? No Provider: Jacquelin Garcia TRANSPORTATION ARRANGEMENTS: Mode of Transportation: Ambulance Transportation Agency and Phone #: [employer] [phone]. Date of Trip: 01/16/2018 Type of Service: Bariatric BLS Non-emergency Is Patient Medicaid Pending: No Discussion of financial coverage occurred with Spouse Jesus. Jewel Lathe Operator Location: [facility]- [place] [address] Destination: [facility] Financial Care Management Responsibility: None Estimated Charge: N/A Approving Flask Carrier: N/A ADDITIONAL CONTACT RESOURCES: Discharge Information Row Name ED to Hosp-Admission (Current) from 01/04/2018 in [place] [facility] Garcia Precert obetained for patient to be discharged to [facility]. - Dr. Lemon notified- orders completed. Transportation set up via cot -( bariatric) for earliest available - 3:30pm. Patient updated at bedside, RN- Radha updated, facility updated and spouse Jesus updated via tc- [phone]. SIGNATURE: Swathi Mart RN PATIENT NAME: Salazar Coyle DATE: January 16, 2018 TIME: 12:02 PM PAGER/CONTACT #: [phone] [facility] CONSULT PROGon 01-16-2018 CONSULT PROG HNO ID: [id number] Author: Bashir Romero Service: Endocrinology Author Type: Physician Type: Consult Progress Note Filed: 01/16/2018 10:45 AM Note Text: DIABETES PROGRESS NOTE SERVICE DATE: 01/16/2018 SERVICE TIME: 0800 REASON FOR CONSULT: DM Type 2 REQUESTING PHYSICIAN: No referring provider defined for this encounter. Subjective INTERVAL HISTORY OF PRESENT ILLNESS: Ms. Coyle remains in ICU. Glucoses improved with insulin changes 01/15, but still some post meal spikes Component GLUCOSE METER Latest Ref Rng AND Units 70 - 99 mg/dL 01/14/2018 3:51 PM 301 (H) 01/14/2018 8:32 PM 370 (H) 01/15/2018 6:22 AM 199 (H) 01/15/2018 10:54 AM 152 (H) 01/15/2018 4:39 PM 266 (H) 01/15/2018 7:58 PM 253 (H) 01/16/2018 161 (H) PAST MEDICAL HISTORY Diagnosis Date - Back pain - Foot ulcer (HCC) - Generalized weakness - Hip pain - Hyperlipemia - Hypertension - Morbid obesity (HCC) - Muscle spasm of back - Osteoarthritis - PAF (paroxysmal atrial fibrillation) (HCC) - Rotator cuff tear - Stroke (HCC) - Type 2 diabetes mellitus with hyperglycemia (HCC) PAST SURGICAL HISTORY Procedure Laterality Date - APPENDECTOMY - BLADDER SURGERY HX - TONSILLECTOMY HX - TUBAL LIGATION HX FAMILY HISTORY Problem Relation Age of Onset - Heart Mother - Diabetes Mother - Stroke Father - Cancer Other - Osteoporosis Other Social History Substance Use Topics - Smoking status: Never Smoker - Smokeless tobacco: Never Used - Alcohol use No Current Facility-Administered Medications: insulin lispro 15 Units pen (rapid acting) (HumaLOG KWIKPEN) 15 Units SUBCUTANEOUS TID w MEALS Bashir Romero 15 Units at 01/16/18 09 lactobacillus rhamnosus (CULTURELLE) capsule 1 capsule ORAL BID Araceli K Lemon benzocaine-menthol 1 Lozenge (CEPACOL) 1 Lozenge MUCOUS MEMBRANE (TOPICAL MOUTH AND THROAT) q 2 H PRN Araceli Lemon insulin lispro pen (rapid acting) (HumaLOG KWIKPEN) SUBCUTANEOUS w MEALS AND HS Bashir Romero 1 Units at 01/16/18 09 insulin glargine 65 Units pen (long acting) (LANTUS SOLOSTAR, BASAGLAR KWIKPEN) 65 Units SUBCUTANEOUS AT BEDTIME Julio C Us 65 Units at 01/15/181955 cyclobenzaprine 5-10 mg tab(s) (FLEXERIL) 5-10 mg ORAL TID PRN Vidya Layton Scantling 10 mg at 01/16/18918 ceFAZolin iv piggyback 2 g in D5W (iso-osmotic) 100 mL (ANCEF) 2 g INTRAVENOUS q 8 HR Diego Obando Last Rate: 200 mL/hr at 01/16/18 0347 2 g at 01/16/18 034 oxyCODONE IR 5 mg tab(s) (ROXICODONE) 5 mg ORAL q 4 H PRN Carlos Roberts Preethi 5 mg at 01/16/18918 albuterol 2.5 mg /3 mL (0.083 %) 2.5 mg (PROVENTIL) 2.5 mg INHALATION q 4 H PRN Len (Res) Jolene ipratropium-albuterol 3 mL nebulizer solution (DUONEB) 3 mL INHALATION q 4 H while awake Ki (Res) Pannikottu 3 mL at 01/15/181947 potassium chloride 80-120 mEq oral liquid 80-120 mEq ORAL/FEEDING TUBE PRN Zachariah (Res) MD Kim potassium chloride iv piggyback 20 mEq in sterile water 100 mL 20 mEq INTRAVENOUS PRN Zachariah (Res) MD Kim magnesium sulfate in water 2 g in sterile water 50 ml 2 g INTRAVENOUS PRN Zachariah (Res) MD Kim sodium phosphate 45 mmol in NaCl 0.9% 250 mL 45 mmol INTRAVENOUS PRN Zachariah (Res) MD Kim calcium gluconate 4 g in NaCl 0.9% 250 mL 4 g INTRAVENOUS PRN Zachariah (Res) MD Kim 0.9% NaCl 3-5 mL 3-5 mL INTRAVENOUS q 12 H Zachariah (Res) MD Kim 3 mL at 01/15/18 2000 dextrose 40 % 15 g 15 g ORAL PRN Zachariah (Res) MD Kim Or glucagon 1 mg injection (GLUCAGEN) 1 mg INTRAMUSCULAR PRN Zachariah (Res) MD Kim Or dextrose 50% in water 25 mL syringe 12.5 g INTRAVENOUS PRN Zachariah (Res) MD Kim acetaminophen 650 mg CUP (TYLENOL) 650 mg ORAL q 4 H PRN Zachariah (Res) MD Kim 650 mg at 01/12/18 0149 gabapentin 600 mg cap(s) (NEURONTIN) 600 mg ORAL QID Jesus Galindo DO 600 mg at 01/16/18 09 atorvastatin 40 mg tab(s) (LIPITOR) 40 mg ORAL AT BEDTIME Jesus Galindo DO 40 mg at 01/15/181954 losartan 100 mg tab(s) (COZAAR) 100 mg ORAL DAILY Jesus Galindo DO 100 mg at 01/16/18 0932 metoprolol tartrate (short acting) 12.5 mg tab(s) (LOPRESSOR) 12.5 mg ORAL q 12 H Jesus Galindo DO 12.5 mg at 01/15/18 2007 amLODIPine 5 mg tab(s) (NORVASC) 5 mg ORAL DAILY Jesus Galindo DO 5 mg at 01/15/18 0805 apixaban 5 mg tab(s) (ELIQUIS) 5 mg ORAL BID Jesus Galindo DO 5 mg at 01/16/18 0919 bisacodyl 10 mg suppository (DULCOLAX) 10 mg RECTAL DAILY PRN Jesus Galindo DO miconazole 2 % 1 application topical powder (LOTRIMIN AF, DESENEX) 1 application TOPICAL BID Julio C Obando 1 application at 01/15/18 2150 Allergies As of Date: 01/04/2018 (No Known Allergies) Fully Assessed 01/04/2018 REVIEW OF SYSTEMS: GENERAL: no fever and no chills SKIN: no change CARDIAC: denies chest pain, heart palpitations or orthopnea PULMONARY: denies wheezing, productive cough or exertional dyspnea Objective PHYSICAL EXAM: BP 146/57 Pulse 56 Temp 36.8 ?C (98.2 ?F) (Oral) Resp 18 Ht 170.2 cm (5' 7.01") Wt 229.9 kg (506 lb 13.4 oz) SpO2 94% BMI 79.36 kg/m2 GENERAL: Morbidly obese SKIN: unchanged HEART: RRR without murmur, gallop, or rubs. No ectopy PULMONARY: Lungs clear to auscultation. No wheezing, rhonchi, rales EXTREMITIES: unchanged DATA: Diagnostic tests reviewed for today's visit: Most recent labs Assessment/Plan Active Problems: Cellulitis POA: Yes Assessment AND Plan: per primary team ? Type 2 diabetes, insulin requiring, uncontrolled with hyperglycemia. Insulin resistance Assessment AND Plan: based on her glucose log review she is still not getting enough meal time conerage. I will increase the programmed Humalog 15 units QAC to cover meals. We will make adjustments to these doses over then next few days as indicated. Lantus dose will stay at 65 units for now. ? ? SIGNATURE: Bashir Romero MD PATIENT NAME: Salazar Coyle DATE: January 16, 2018 TIME: 10:42 AM PAGER/CONTACT #: [phone] [facility] PROGRESSon 01-16-2018 PROGRESS HNO ID: [id number] Author: Araceli Lemon Service: Hospital Medicine Author Type: Physician Type: Progress Notes Filed: 01/16/2018 10:32 AM Note Text: INTERNAL MEDICINE PROGRESS NOTE ADMIT DATE: 01/04/2018 5:31 PM SERVICE DATE: 01/16/2018 INTERVAL HISTORY: F/u : cellulitis S: Pt states he legs are better. Complaining of pain in her back/leg/hip. Explained risk of OD and I would not be increasing her narcotic Cahrt review shows last admission Cardio placed pt on eliquis due to h/o non-compliance and pt was unable to get INR check. MEDICATIONS: Current hospital medications: insulin lispro 15 Units pen (rapid acting) (HumaLOG KWIKPEN) 15 Units SUBCUTANEOUS TID w MEALS lactobacillus rhamnosus (CULTURELLE) capsule 1 capsule ORAL BID benzocaine-menthol 1 Lozenge (CEPACOL) 1 Lozenge MUCOUS MEMBRANE (TOPICAL MOUTH AND THROAT) q 2 H PRN insulin lispro pen (rapid acting) (HumaLOG KWIKPEN) SUBCUTANEOUS w MEALS AND HS insulin glargine 65 Units pen (long acting) (LANTUS SOLOSTAR, BASAGLAR KWIKPEN) 65 Units SUBCUTANEOUS AT BEDTIME cyclobenzaprine 5-10 mg tab(s) (FLEXERIL) 5-10 mg ORAL TID PRN ceFAZolin iv piggyback 2 g in D5W (iso-osmotic) 100 mL (ANCEF) 2 g INTRAVENOUS q 8 HR oxyCODONE IR 5 mg tab(s) (ROXICODONE) 5 mg ORAL q 4 H PRN albuterol 2.5 mg /3 mL (0.083 %) 2.5 mg (PROVENTIL) 2.5 mg INHALATION q 4 H PRN ipratropium-albuterol 3 mL nebulizer solution (DUONEB) 3 mL INHALATION q 4 H while awake potassium chloride 80-120 mEq oral liquid 80-120 mEq ORAL/FEEDING TUBE PRN potassium chloride iv piggyback 20 mEq in sterile water 100 mL 20 mEq INTRAVENOUS PRN magnesium sulfate in water 2 g in sterile water 50 ml 2 g INTRAVENOUS PRN sodium phosphate 45 mmol in NaCl 0.9% 250 mL 45 mmol INTRAVENOUS PRN calcium gluconate 4 g in NaCl 0.9% 250 mL 4 g INTRAVENOUS PRN 0.9% NaCl 3-5 mL 3-5 mL INTRAVENOUS q 12 H dextrose 40 % 15 g 15 g ORAL PRN glucagon 1 mg injection (GLUCAGEN) 1 mg INTRAMUSCULAR PRN dextrose 50% in water 25 mL syringe 12.5 g INTRAVENOUS PRN acetaminophen 650 mg CUP (TYLENOL) 650 mg ORAL q 4 H PRN gabapentin 600 mg cap(s) (NEURONTIN) 600 mg ORAL QID atorvastatin 40 mg tab(s) (LIPITOR) 40 mg ORAL AT BEDTIME losartan 100 mg tab(s) (COZAAR) 100 mg ORAL DAILY metoprolol tartrate (short acting) 12.5 mg tab(s) (LOPRESSOR) 12.5 mg ORAL q 12 H amLODIPine 5 mg tab(s) (NORVASC) 5 mg ORAL DAILY apixaban 5 mg tab(s) (ELIQUIS) 5 mg ORAL BID bisacodyl 10 mg suppository (DULCOLAX) 10 mg RECTAL DAILY PRN miconazole 2 % 1 application topical powder (LOTRIMIN AF, DESENEX) 1 application TOPICAL BID PHYSICAL EXAM: VITAL SIGNS 01/15/18200601/15/18 2255 01/16/18 0500 01/16/18 0916 BP: (!) 144/46 149/53 146/57 Pulse: 65 63 (!) 48 (!) 56 Resp: Temp: 36.9 ?C (98.4 ?F) 36.8 ?C (98.2 ?F) TempSrc: Oral Oral SpO2: 94% Weight: Height: Temp (24hrs), Av.8 ?C (98.3 ?F), Min:36.8 ?C (98.2 ?F), Max:36.9 ?C (98.4 ?F) Body mass index is 79.36 kg/m?. INTAKE/OUTPUT Intake/Output Summary (Last 24 hours) at 01/16/18 1026 Last data filed at 01/16/18 0400 Gross per 24 hour Intake 720 ml Output 2725 ml Net -2005 ml Physical Exam: Gen: Alert and Orientated x 3, No acute distress HEENT: EOMI, PERRLA, anicteric, no pallor, no facial droop CV: S1/S2 regular rate and rhythm, no murmurs, rubs and gallops, no reproducible pain, + 2 radial pulses - equal, distant Resp: distant Clear to auscultation bilaterally, no wheezes, rales, rhonchi or crackles Abd: + Bowel sounds, soft, non-tender, non-distended Ext: no pitting edema LAB DATA: CBC: Recent Labs 01/16/18 0415 01/15/18 0400 01/14/18 0410 01/13/18 0410 01/12/18 0245 01/11/18 0452 01/10/18 0415 WBC 9.73 8.95 8.53 8.20 5.01 5.60 5.34 HB 11.6 11.3 11.0* 10.9* 11.8 10.7* 10.6* HCT 36.4 35.7 35.1 34.6 37.1 34.4 34.3 PLT 227 229 232 242 227 229 224 MCV 97.6* 98.1* 98.0* 98.6* 98.7* 99.7* 100.0* COAG: No results for input(s): APTT, INR in the last 168 hours. BMP: No results for input(s): GLUC, NA, K, CHLOR, CO2, ANION, BUN, CREAT in the last 168 hours. CHEM: No results for input(s): ALB, TPROT, CA, MG in the last 168 hours. ASSESSMENT AND PLAN: # LE Cellulitis - will switch to duricef at d/c # Rt Heel Ulcer - POA - appreciate podiatry - WBAT, fu with podiatry # MO - advised to loose weight # Narcotic overdose this admission - limit narcotics # Suspected PHOEBE/OHS - f/u pulmonary as OP # PAF / h/o CVA - per cardio - unable to due coumadin as pt is unable to get to lab to get blood draws. Pt main goal at this point is a short term stay at rehab and then to go home. Ideally pt should be on coumadin however given these limitations I will c/w felecia # DM II - BS improved, but still not at goal, appreciate endocrine recs Plan of Care discussed with : Patient, Nurse, CM DVT PPx: felecia Dispo: SNF - await precert Araceli Andrade Physician [facility] CASE MANAGEMon 01-15-2018 CASE MANAGEM HNO ID: [id number] Author: Swathi (Rn) MATHEUS Mart Service: Care Management Author Type: Registered Nurse Type: Care Mgt Progress Note Filed: 01/15/2018 4:46 PM Note Text: CARE MANAGEMENT PROGRESS NOTE SERVICE DATE: 01/15/2018 SERVICE TIME: 3:44 PM LOS: 10 days Progress note Precert not obtained yet- transport put standby. Will continue to follow. SIGNATURE: Swathi Mart RN PATIENT NAME: Salazar Coyle DATE: January 15, 2018 TIME: 3:44 PM PAGER/CONTACT #: [phone] [facility] CASE MGT INIT Nan 2017 CASE MGT INIT BRITTA HNO ID: [id number] Author: Swathi CisnerosRn) MATHEUS Mart Service: Care Management Author Type: Registered Nurse Type: Care Mgt Initial Assessment Filed: 01/15/2018 3:32 PM Note Text: CARE MANAGEMENT PROGRESS NOTE SERVICE DATE: 01/15/2018 SERVICE TIME: 3:27 PM LOS: 10 days Progress Note No precert obtained. Placed call to [facility]- ext [phone] to inquire on the delay on precert. SIGNATURE: Swathi Mart RN PATIENT NAME: Salazar Coyle DATE: January 15, 2018 TIME: 3:27 PM PAGER/CONTACT #: [phone] [facility] CONSULTon 01-15-2018 CONSULT HNO ID: [id number] Author: Bashir Romero Service: Endocrinology Author Type: Physician Type: Consults Filed: 01/15/2018 8:45 AM Note Text: DIABETES INITIAL CONSULT PATIENT NAME: Salazar Coyle SERVICE DATE: 01/15/2018 SERVICE TIME: 0800 REASON FOR CONSULT: DM Type 2 REQUESTING PHYSICIAN:No referring provider defined for this encounter. PRIMARY CARE PHYSICIAN: No primary care provider on file. Subjective HISTORY OF PRESENT ILLNESS: Ms. Coyle is a 67 year old female with a history of insulin resistant type 2 DM. She has historically seen Jagdeep Woods of our endocrine group for management of her diabetes. She had a stroke several months ago and has been very limited with mobility since that time. She was readmitted to [facility] 01/05/18 for LE cellulitis. She has had difficult to control blood glucoses during this admission, currently receiving Lantus QD and Regular insulin scale. She is vipul on prednisone 40 mg QD. Glucose log as follows: Component GLUCOSE METER Latest Ref Rng AND Units 70 - 99 mg/dL 01/13/2018 6:49 AM 240 (H) 01/13/2018 11:07 AM 253 (H) 01/13/2018 4:46 PM 330 (H) 01/13/2018 8:16 PM 364 (H) 01/14/2018 6:42 AM 171 (H) 01/14/2018 11:18 AM 198 (H) 01/14/2018 3:51 PM 301 (H) 01/14/2018 8:32 PM 370 (H) 01/15/2018 199 (H) PAST MEDICAL HISTORY Diagnosis Date - Back pain - Foot ulcer (HCC) - Generalized weakness - Hip pain - Hyperlipemia - Hypertension - Morbid obesity (HCC) - Muscle spasm of back - Osteoarthritis - PAF (paroxysmal atrial fibrillation) (HCC) - Rotator cuff tear - Stroke (HCC) - Type 2 diabetes mellitus with hyperglycemia (HCC) PAST SURGICAL HISTORY Procedure Laterality Date - APPENDECTOMY - BLADDER SURGERY HX - TONSILLECTOMY HX - TUBAL LIGATION HX FAMILY HISTORY Problem Relation Age of Onset - Heart Mother - Diabetes Mother - Stroke Father - Cancer Other - Osteoporosis Other Social History Substance Use Topics - Smoking status: Never Smoker - Smokeless tobacco: Never Used - Alcohol use No CURRENT MEDICATION: Current Facility-Administered Medications: insulin lispro 10 Units pen (rapid acting) (HumaLOG KWIKPEN) 10 Units SUBCUTANEOUS TID w MEALS Bashir Romero insulin lispro pen (rapid acting) (HumaLOG KWIKPEN) SUBCUTANEOUS w MEALS AND HS Bashir Romero insulin glargine 65 Units pen (long acting) (LANTUS SOLOSTAR, BASAGLAR KWIKPEN) 65 Units SUBCUTANEOUS AT BEDTIME Julio C Us 65 Units at 01/14/182032 cyclobenzaprine 5-10 mg tab(s) (FLEXERIL) 5-10 mg ORAL TID PRN Vidya Garcialing 10 mg at 01/15/18 0804 ceFAZolin iv piggyback 2 g in D5W (iso-osmotic) 100 mL (ANCEF) 2 g INTRAVENOUS q 8 HR Diego Obando Last Rate: 200 mL/hr at 01/15/18 0358 2 g at 01/15/18 0358 oxyCODONE IR 5 mg tab(s) (ROXICODONE) 5 mg ORAL q 4 H PRN Carlos Roberts Preethi 5 mg at 01/15/18 0804 albuterol 2.5 mg /3 mL (0.083 %) 2.5 mg (PROVENTIL) 2.5 mg INHALATION q 4 H PRN Len (Vicenta) Jolene ipratropium-albuterol 3 mL nebulizer solution (DUONEB) 3 mL INHALATION q 4 H while awake Ki (Res) Pannikottu 3 mL at 01/15/18 0814 potassium chloride 80-120 mEq oral liquid 80-120 mEq ORAL/FEEDING TUBE PRN Zachariah (Res) MD Kim potassium chloride iv piggyback 20 mEq in sterile water 100 mL 20 mEq INTRAVENOUS PRN Zachariah (Res) MD Kim magnesium sulfate in water 2 g in sterile water 50 ml 2 g INTRAVENOUS PRN Zachariah (Res) MD Kim sodium phosphate 45 mmol in NaCl 0.9% 250 mL 45 mmol INTRAVENOUS PRN Zachariah (Res) MD Kim calcium gluconate 4 g in NaCl 0.9% 250 mL 4 g INTRAVENOUS PRN Zachariah (Res) MD Kim 0.9% NaCl 3-5 mL 3-5 mL INTRAVENOUS q 12 H Zachariah (Res) MD Kim 3 mL at 01/15/18 0808 dextrose 40 % 15 g 15 g ORAL PRN Zachariah (Res) MD Kim Or glucagon 1 mg injection (GLUCAGEN) 1 mg INTRAMUSCULAR PRN Zachariah (Res) MD Kim Or dextrose 50% in water 25 mL syringe 12.5 g INTRAVENOUS PRN Zachariah (Res) MD Kim acetaminophen 650 mg CUP (TYLENOL) 650 mg ORAL q 4 H PRN Zachariah (Res) MD Kim 650 mg at 01/12/18 0149 gabapentin 600 mg cap(s) (NEURONTIN) 600 mg ORAL QID Jesus Galindo, DO 600 mg at 01/15/18 0804 atorvastatin 40 mg tab(s) (LIPITOR) 40 mg ORAL AT BEDTIME Jesus Galindo, DO 40 mg at 01/14/182034 losartan 100 mg tab(s) (COZAAR) 100 mg ORAL DAILY Jesus Galindo, DO 100 mg at 01/15/18 08 metoprolol tartrate (short acting) 12.5 mg tab(s) (LOPRESSOR) 12.5 mg ORAL q 12 H Jesus Galindo, DO 12.5 mg at 01/15/18 08 amLODIPine 5 mg tab(s) (NORVASC) 5 mg ORAL DAILY Jesus Galindo DO 5 mg at 01/15/18 0805 apixaban 5 mg tab(s) (ELIQUIS) 5 mg ORAL BID Jesus Galindo DO 5 mg at 01/15/18 0804 bisacodyl 10 mg suppository (DULCOLAX) 10 mg RECTAL DAILY PRN Jesus Galindo DO miconazole 2 % 1 application topical powder (LOTRIMIN AF, DESENEX) 1 application TOPICAL BID Julio C Obando 1 application at 01/15/18 0804 Allergies As of Date: 01/04/2018 (No Known Allergies) Fully Assessed 01/04/2018 General: no fever and no chills Skin: as per HPI Eyes: no blurred or double vision or eye pain Cardiac: denies chest pain, heart palpitations or orthopnea Pulmonary: denies wheezing, productive cough or exertional dyspnea GI: denies nausea, vomiting, diarrhea or constipation Neuro: per HPI Musc: per HPI Endocrine: denies polyuria, polydipsia, nocturia, blurry vision or excessive fatigue Hematology: Negative for anemia, easy bleeding and bruising. Objective PHYSICAL EXAM: BP 148/57 Pulse 52 Temp 36.5 ?C (97.7 ?F) (Oral) Resp 18 Ht 170.2 cm (5' 7.01") Wt 229.9 kg (506 lb 13.4 oz) SpO2 93% BMI 79.36 kg/m2 General: Morbidly obese Skin: skin color, texture, turgor normal, no rashes or lesions. Head: normocephalic, no masses, lesions, tenderness or abnormalities. Eyes: Anicteric sclera. Pupils are equally round and reactive to light. Extraocular movements are intact. Oropharynx: Lips, mucosa, and tongue normal, teeth and gums normal, oropharynx normal Neck: Supple, no adenopathy; thyroid symmetric, normal size, no bruits Heart: RRR without murmur, gallop, or rubs. No ectopy Abdomen: soft, non-tender, positive bowel sounds Extremities: Pitting edema present DATA: Diagnostic tests reviewed for today's visit: Most recent labs glucose log Impression/Recommendations Active Problems: Cellulitis POA: Yes Assessment AND Plan: per primary team Type 2 diabetes, insulin requiring, uncontrolled with hyperglycemia. Insulin resistance Assessment AND Plan: based on her glucose log review she is not getting enough meal time conerage. I will change her scale to Humalog and add programmed Humalog 10 units QAC to cover meals. We will make adjustments to these doses over then next few days as indicated. Lantus dose will stay at 65 units for now. SIGNATURE: Bashir Romero MD DATE: January 15, 2018 TIME: 8:37 AM [facility] PROGRESSon 01-15-2018 PROGRESS HNO ID: [id number] Author: Susan Greco Service: Hospital Medicine Author Type: Physician Type: Progress Notes Filed: 01/16/2018 7:37 AM Note Text: Pt seen.- See my 01/14/18 note- VSS GENERAL: Alert, no distress, cooperative. Morbid obesity LUNGS: Lungs clear to auscultation. CARDIAC: Normal S1 and S2; no rubs, murmurs, or gallops ABDOMEN: ?Abdomen soft, non-tender EXTREMITIES:Deep Tissue Injury right heel ? Imp/p # Deep Tissue Injury right heel - friction wound to bilateral buttocks/posterior thighs- Wound care following- Cellulitis R leg- Per ID on 01/09/18: Continue ancef while in hospital, then DC with PO duricef x 10 days.- podiatry rec noted. Continue wound care and offloading. Please allow pt to weight bear on the right foot as tolerated. She can put weight on the right foot as tolerated for transfers/ short duration/ short distance when her leg is not hurting. When her leg hurts, recommend rest and elevation # morbid obesity- # DM2-endo mgmt # PAF hx- DC when precert obtained [facility] CASE MANAGEMon 01-14-2018 CASE MANAGEM HNO ID: [id number] Author: Swathi Mart RN Service: Care Management Author Type: Registered Nurse Type: Care Mgt Progress Note Filed: 01/14/2018 12:19 PM Note Text: CARE MANAGEMENT PROGRESS NOTE SERVICE DATE: 01/14/2018 SERVICE TIME: 12:18 PM LOS: 9 days Progress Note PT/OT updates sent to facility for precert. SIGNATURE: Swathi Mart RN PATIENT NAME: Salazar Coyle DATE: January 14, 2018 TIME: 12:18 PM PAGER/CONTACT #: [phone] [facility] CASE MANAGEM HNO ID: [id number] Author: Swathi Hammond) MATHEUS Mart Service: Care Management Author Type: Registered Nurse Type: Care Mgt Progress Note Filed: 01/14/2018 9:17 AM Note Text: CARE MANAGEMENT PROGRESS NOTE SERVICE DATE: 01/14/2018 SERVICE TIME: 9:16 AM LOS: 9 days Progress Note PT/OT paged for therapy updates for precert to go to [facility]. Await precert and continue to follow. SIGNATURE: Swathi Mart RN PATIENT NAME: Salazar Coyle DATE: January 14, 2018 TIME: 9:16 AM PAGER/CONTACT #: [phone] [facility] CONSULTon 01-14-2018 CONSULT HNO ID: [id number] Author: George Ayers Service: Podiatry Author Type: Physician Type: Consults Filed: 01/14/2018 9:38 PM Note Text: CONSULT: PODIATRY SERVICE SERVICE DATE: 01/14/2018 SERVICE TIME: 9:03 PM REASON FOR CONSULT: DEEP TISSUE INJURY RIGHT HEEL WOUND, WEIGHT BEARING STATUS REQUESTING PHYSICIAN: Susan Greco DO PRIMARY CARE PHYSICIAN: No primary care provider on file. Subjective Ms. Coyle is a 67 year old female who presents for cellulitis of the right leg. I am seeing pt to clarify her weight bearing status due to pain in her right leg and a deep tissue injury on the posterior right heel wound. She report that she cannot put any weight on the right foot because of the deep tissue injury to the heel. She also reports weakness in the right leg due to previous stroke and injury. She reports that she can put weight on the right foot as tolerated for transfers/ short duration/ short distance. However she does not want to be told to weight bear on the right foot for prolong periods of time or for physical therapy. PAST MEDICAL HISTORY Diagnosis Date - Back pain - Foot ulcer (HCC) - Generalized weakness - Hip pain - Hyperlipemia - Hypertension - Morbid obesity (HCC) - Muscle spasm of back - Osteoarthritis - PAF (paroxysmal atrial fibrillation) (HCC) - Rotator cuff tear - Stroke (HCC) - Type 2 diabetes mellitus with hyperglycemia (HCC) PAST SURGICAL HISTORY Procedure Laterality Date - APPENDECTOMY - BLADDER SURGERY HX - TONSILLECTOMY HX - TUBAL LIGATION HX FAMILY HISTORY Problem Relation Age of Onset - Heart Mother - Diabetes Mother - Stroke Father - Cancer Other - Osteoporosis Other Social History Substance Use Topics - Smoking status: Never Smoker - Smokeless tobacco: Never Used - Alcohol use No Prescriptions Prior to Admission: aspirin 81 mg chewable tablet Take 81 mg by mouth once daily. Disp: Rfl: oxyCODONE-acetaminophen (PERCOCET) 7.5-325 mg tablet Take 1 tablet by mouth three times daily. Disp: Rfl: amLODIPine (NORVASC) 5 mg tablet Take 1 tablet by mouth once daily. Disp: Rfl: atorvastatin (LIPITOR) 40 mg tablet Take 1 tablet by mouth daily at bedtime. Disp: Rfl: bisacodyl (DULCOLAX) 10 mg supp 1 Suppository by RECTAL route once daily as needed. Disp: Rfl: cyclobenzaprine (FLEXERIL) 10 mg tablet Take 1 tablet by mouth three times daily as needed for Muscle Spasm. Disp: Rfl: insulin lispro (HUMALOG KWIKPEN) 100 unit/mL inpn Inject 22 Units subcutaneously w MEALS. Disp: Rfl: insulin lispro (HUMALOG KWIKPEN) 100 unit/mL pen If Blood Glucose (mg/dL) is: Less than 110= 0 units, 111-150= 0 units, 151-200= 3 units, 201-250= 6 units, 251-300= 9 units, 301-350= 12 units, 351-400= 15 units, Greater than 400= 18 units, Disp: Rfl: metoprolol tartrate, short acting, (LOPRESSOR) 25 mg tablet Take 0.5 tablets by mouth every 12 hours. Disp: Rfl: amitriptyline (ELAVIL) 10 mg tablet Take 20 mg by mouth daily at bedtime. Disp: Rfl: miconazole (MONISTAT-DERM,MAY) 2 % cream Apply 1 application to affected area twice daily. Disp: 90 g Rfl: 1 LANTUS SOLOSTAR 100 unit/mL (3 mL) inpn Inject 65 units subcutaneously at bedtime Disp: 10 Pen Rfl: 6 07/19/2017 at Unknown time NOVOLOG FLEXPEN 100 unit/mL inpn Dose varies units with meals, using about 66 total units a day (Patient taking differently: Inject 22 Units subcutaneously three times daily with meals. ) Disp: 10 Pen Rfl: 6 07/20/2017 at Unknown time gabapentin (NEURONTIN) 600 mg tablet 600 mg four times daily. Disp: Rfl: 07/20/2017 at Unknown time NOVOFINE 30 30 gauge x 1/3" ndle 1 Pen Needle four times daily. Disp: 120 Each Rfl: 2 Unknown at Unknown time lidocaine (LIDODERM) 5 % Apply 3 Patches as directed every 12 hours. Two patches to right hip, 1 patch to left thigh Disp: Rfl: Unknown at Unknown time baclofen (LIORESAL) 20 mg tablet 20 mg three times daily. Disp: Rfl: 07/20/2017 at Unknown time losartan (COZAAR) 100 mg tablet Take 100 mg by mouth once daily. Disp: Rfl: 07/20/2017 at Unknown time Current hospital medications: insulin glargine 65 Units pen (long acting) (LANTUS SOLOSTAR, BASAGLAR KWIKPEN) 65 Units SUBCUTANEOUS AT BEDTIME predniSONE 40 mg tab(s) (DELTASONE) 40 mg ORAL DAILY cyclobenzaprine 5-10 mg tab(s) (FLEXERIL) 5-10 mg ORAL TID PRN insulin regular human injection (short acting) (NovoLIN R,HumuLIN R) SUBCUTANEOUS w MEALS AND HS ceFAZolin iv piggyback 2 g in D5W (iso-osmotic) 100 mL (ANCEF) 2 g INTRAVENOUS q 8 HR oxyCODONE IR 5 mg tab(s) (ROXICODONE) 5 mg ORAL q 4 H PRN albuterol 2.5 mg /3 mL (0.083 %) 2.5 mg (PROVENTIL) 2.5 mg INHALATION q 4 H PRN ipratropium-albuterol 3 mL nebulizer solution (DUONEB) 3 mL INHALATION q 4 H while awake potassium chloride 80-120 mEq oral liquid 80-120 mEq ORAL/FEEDING TUBE PRN potassium chloride iv piggyback 20 mEq in sterile water 100 mL 20 mEq INTRAVENOUS PRN magnesium sulfate in water 2 g in sterile water 50 ml 2 g INTRAVENOUS PRN sodium phosphate 45 mmol in NaCl 0.9% 250 mL 45 mmol INTRAVENOUS PRN calcium gluconate 4 g in NaCl 0.9% 250 mL 4 g INTRAVENOUS PRN 0.9% NaCl 3-5 mL 3-5 mL INTRAVENOUS q 12 H dextrose 40 % 15 g 15 g ORAL PRN glucagon 1 mg injection (GLUCAGEN) 1 mg INTRAMUSCULAR PRN dextrose 50% in water 25 mL syringe 12.5 g INTRAVENOUS PRN acetaminophen 650 mg CUP (TYLENOL) 650 mg ORAL q 4 H PRN gabapentin 600 mg cap(s) (NEURONTIN) 600 mg ORAL QID atorvastatin 40 mg tab(s) (LIPITOR) 40 mg ORAL AT BEDTIME losartan 100 mg tab(s) (COZAAR) 100 mg ORAL DAILY metoprolol tartrate (short acting) 12.5 mg tab(s) (LOPRESSOR) 12.5 mg ORAL q 12 H amLODIPine 5 mg tab(s) (NORVASC) 5 mg ORAL DAILY apixaban 5 mg tab(s) (ELIQUIS) 5 mg ORAL BID bisacodyl 10 mg suppository (DULCOLAX) 10 mg RECTAL DAILY PRN miconazole 2 % 1 application topical powder (LOTRIMIN AF, DESENEX) 1 application TOPICAL BID Allergies As of Date: 01/04/2018 (No Known Allergies) Fully Assessed 01/04/2018 COMPLETE REVIEW OF SYSTEMS: GENERAL: No weight loss, malaise or fevers RESPIRATORY: Negative for cough, hemoptysis, wheezing CARDIOVASCULAR: Negative for chest pain GI: No nausea, vomiting, or diarrhea MUSCULOSKELETAL: right leg pain SKIN: Positive for ulcers: right heel Objective PHYSICAL EXAM: General: Normotensive, in no acute distress. Head: Normocephalic, no lesions. Chest: Lungs clear. Heart: RR. Lower Extremities: VASCULAR EXAM:. Dorsalis pedis and posterior tibial pulses are palpable on the right and left foot. The temperature gradient is warm to cool on the right and left foot. Digital capillary fill time is 1 - 3 seconds on the right and left foot. Negative hair growth on the digits B/L. There is edema on the right and left foot. NEUROLOGICAL EXAM:. Protective sensation to 5.07 monofilament is diminished to the right foot and left foot. Deep tendon reflexes are intact and symmetrical on the right foot and left foot. DERMATOLOGICAL EXAM:. Skin thin, dry and scaly right foot and left foot. No interdigital macerations are noted B/L. Deep tissue injury noted to the right posterior heel measuring 8 cm x 6 cm. The area is painful on palpation. MUSCULOSKELETAL EXAM:.Extreme guarding of the right foot noted during examination. Muscle strength appears to be diminished for plantarflexion, dorsiflexion, inversion and eversion of the right foot and ankle. Range of motion of the 1st MTPJ, ankle and subtalar joints appear to be limited on the right foot. BP 158/63 Pulse 62 Temp (Src) 98.4 (Temporal Artery) Resp 18 Ht 5' 7.008" (1.70m) Wt 506 lb 13.4 oz (229.9kg) SpO2 92% BMI 79.36 kg/(m2). DATA: Diagnostic tests reviewed for today's visit: Most recent labs and imaging results. Impression/Recommendations Active Problems: Cellulitis POA: Yes Assessment AND Plan: Deep tissue injury to posterior right heel. Continue wound care and offloading. Please allow pt to weight bear on the right foot as tolerated. She can put weight on the right foot as tolerated for transfers/ short duration/ short distance when her leg is not hurting. When her leg hurts, recommend rest and elevation. SIGNATURE: George Ayers DPM PATIENT NAME: Salazar Coyle DATE: January 14, 2018 TIME: 9:02 PM PAGER: [phone] [facility] PROGRESSon 01-14-2018 PROGRESS HNO ID: [id number] Author: Susan Greco Service: Hospital Medicine Author Type: Physician Type: Progress Notes Filed: 01/14/2018 1:55 PM Note Text: INTERNAL MEDICINE PROGRESS NOTE SERVICE DATE: 01/14/2018 SERVICE TIME: 1:46 PM ADMITTING PHYSICIAN: Cheryle Romero Subjective CHIEF COMPLAINT: f/u medical issues listed below Current Facility-Administered Medications: insulin glargine 65 Units pen (long acting) (LANTUS SOLOSTAR, BASAGLAR KWIKPEN) 65 Units SUBCUTANEOUS AT BEDTIME predniSONE 40 mg tab(s) (DELTASONE) 40 mg ORAL DAILY cyclobenzaprine 5-10 mg tab(s) (FLEXERIL) 5-10 mg ORAL TID PRN insulin regular human injection (short acting) (NovoLIN R,HumuLIN R) SUBCUTANEOUS w MEALS AND HS ceFAZolin iv piggyback 2 g in D5W (iso-osmotic) 100 mL (ANCEF) 2 g INTRAVENOUS q 8 HR oxyCODONE IR 5 mg tab(s) (ROXICODONE) 5 mg ORAL q 4 H PRN albuterol 2.5 mg /3 mL (0.083 %) 2.5 mg (PROVENTIL) 2.5 mg INHALATION q 4 H PRN ipratropium-albuterol 3 mL nebulizer solution (DUONEB) 3 mL INHALATION q 4 H while awake potassium chloride 80-120 mEq oral liquid 80-120 mEq ORAL/FEEDING TUBE PRN potassium chloride iv piggyback 20 mEq in sterile water 100 mL 20 mEq INTRAVENOUS PRN magnesium sulfate in water 2 g in sterile water 50 ml 2 g INTRAVENOUS PRN sodium phosphate 45 mmol in NaCl 0.9% 250 mL 45 mmol INTRAVENOUS PRN calcium gluconate 4 g in NaCl 0.9% 250 mL 4 g INTRAVENOUS PRN 0.9% NaCl 3-5 mL 3-5 mL INTRAVENOUS q 12 H dextrose 40 % 15 g 15 g ORAL PRN Or glucagon 1 mg injection (GLUCAGEN) 1 mg INTRAMUSCULAR PRN Or dextrose 50% in water 25 mL syringe 12.5 g INTRAVENOUS PRN acetaminophen 650 mg CUP (TYLENOL) 650 mg ORAL q 4 H PRN gabapentin 600 mg cap(s) (NEURONTIN) 600 mg ORAL QID atorvastatin 40 mg tab(s) (LIPITOR) 40 mg ORAL AT BEDTIME losartan 100 mg tab(s) (COZAAR) 100 mg ORAL DAILY metoprolol tartrate (short acting) 12.5 mg tab(s) (LOPRESSOR) 12.5 mg ORAL q 12 H amLODIPine 5 mg tab(s) (NORVASC) 5 mg ORAL DAILY apixaban 5 mg tab(s) (ELIQUIS) 5 mg ORAL BID bisacodyl 10 mg suppository (DULCOLAX) 10 mg RECTAL DAILY PRN miconazole 2 % 1 application topical powder (LOTRIMIN AF, DESENEX) 1 application TOPICAL BID INTERVAL HISTORY OF PRESENT ILLNESS: Objective PHYSICAL EXAM: Patient Vitals for the past 24 hrs: BP Temp Temp src Pulse Resp SpO2 01/14/18 1202 - - - 64 18 94 % 01/14/18 0810 - - - (!) 56 20 95 % 01/14/18 0506 (!) 135/47 36.5 ?C (97.7 ?F) Oral 60 18 96 % 01/13/182123 - - - 69 20 - 01/13/182115 - - - 65 18 - 01/13/182014 153/50 36.8 ?C (98.2 ?F) Oral 66 18 98 % 01/13/18 1802 - - - 65 18 97 % 01/13/18 1420 - - - (!) 57 18 95 % Body mass index is 79.36 kg/m?. GENERAL: Alert, no distress, cooperative. Morbid obesity SKIN: wounds noted LUNGS: Lungs clear to auscultation. CARDIAC: Normal S1 and S2; no rubs, murmurs, or gallops ABDOMEN: Abdomen soft, non-tender EXTREMITIES:Deep Tissue Injury right heel DATA: Diagnostic tests reviewed for today's visit: Significant findings were revd Assessment/Plan # Deep Tissue Injury right heel - friction wound to bilateral buttocks/posterior thighs- Wound care following- Cellulitis R leg- Per ID on 01/09/18: Continue ancef while in hospital, then DC with PO duricef x 10 days.- Consult podiatry. Need rec re weightbear status # morbid obesity- # DM2- # PAF hx- ? SIGNATURE: Susan Greco DO PATIENT NAME: Salazar Coyle DATE: January 14, 2018 TIME: 1:46 PM PAGER/CONTACT #: [facility] THERAPY NTon 01-14-2018 THERAPY NT HNO ID: [id number] Author: Tye Brand) [place] Service: Physical Therapy Author Type: Emergency Vehicle Operator Type: Therapy (PT/OT/Speech/Resp) Filed: 01/14/2018 12:01 PM Note Text: -- Attestation signed by Cristy Fonseca at 01/14/2018 2:27 PM I reviewed and agree with the documentation corresponding to this therapy visit. SIGNATURE: Cristy Fonseca PT DATE: January 14, 2018 TIME: 2:27 PM -- Physical Therapy Treatment SERVICE DATE: 01/14/2018 SERVICE TIME: 1112 to 1135 ROOM: [place] [id number] Recommended Discharge Disposition: Subacute/SNF Justification For Post Acute Needs: Anticipate that patient will require daily (5x/wk) skilled therapy in a post-acute facility setting at the time of acute hospital discharge;Willing to participate;Motivated PT Recommendations to Nursing: Sit at edge of bed;With assist of 1 person;Utilize bed in chair position;Not appropriate for OOB activity at this time PT 6 Clicks Score: 8 Precautions/Activity Restrictions: Fall Risk;Lines/Tubes/Drains Precaution/Activity Restriction Comments: IV, supplemental O2 Isolation Type: None ASSESSMENT : Patient presents with increased pain and fatigue--nursing aware--patient continues to be limited with bed mobility tasks, with limited ability to coordinate lower extremity movements during tasks--patient crying out in pain with minimal right lower extremity movements--patient able to use bed rails to assist with mobility tasks. Continue to recommend subacute/SNF to improved strength and independence with mobility tasks for return to prior level of function. Patient Disposition at Start of Session: Supine in Bed;Call [facility] in Reach Patient Disposition at End of Session: Supine in Bed;Call [facility] in Reach Tolerance Limited By Fatigue;Pain Physical Therapy Problem List: Pain;Impaired Self Care;Decreased Activity Tolerance;Decreased Range Of Motion;Decreased Strength;Functional Mobility Impairment Patient /Caregiver Goals: Go To Rehab Goals for Plan of Care: Able to perform HEP with: Minimal Assistance Rolling with: Minimal Assistance Transfer supine to/from sit with: Moderate Assistance Goal: able to scoot L and R in bed simulating slide transfer with min asist Progress Toward Goals: Progressing slower than expected Due To: pain Rehab Potential: Good PLAN: Treatment Frequency (times per week): 5 (2-5) Current admission Treatment Interventions: Education;Joint Mobility;Strengthening;Fun ctional Mobility Training Plan of Care developed with: Patient TREATMENT INTERVENTIONS: Therapy Diagnosis: Reduced mobility-other;Muscle Weakness (generalized);Abnormalitie s of gait and mobility-other;General symptoms and signs-other Interventions Provided: Therapeutic Activity (51069);Therapeutic Exercise (39606) Therapeutic Exercise (10370) Treatment Minutes: 8 0 units Skilled Intervention(s): supine lower extremity strengthening/ROM--patient performing glut and quad sets--left lower extremity hip flexion/ext--range of motion to right lower extremity--patient screaming out in pain--patient limited by pain on right, no wanting to move leg or have leg moved. Therapeutic Activity (33120) Treatment Minutes: 15 2 units Skilled Intervention(s): bed mobility tasks in rolling, scooting, and positioning of lower extremities for comfort--patient with use of bed rails during scooting/rolling tasks--patient with limited ability to roll/scoot this date due to pain--maximal assist with moving in bed--patient declined and sitting up this date--patient education on benefits of moving for strengthening and independence with mobility tasks. Total Timed Code Treatment Minutes: 23 Total Treatment Time (minutes): 23 SUBJECTIVE: Current Hospital Course: Chart reviewed and no significant medical updates relevant to therapy were noted Reason for Physical Therapy Consult : GEOMATICS PROFESSOR Relevant Past Medical History: morbid obesity cellulitis Patient Report: patient stated a lot of pain in right foot, with screaming out with light movements--nursing aware of pain, nursing stated pain meds already administered. Home Environment Patient Lives With: Significant Other () Assistance Available: 24 Hour Entry To Home: No Stairs Tub/Shower Type: sponge bathes Equipment Owned: Commode-Raised (hospital bed,electric scooter) Prior Functional Level: Required Assistance Assistance Required With: Transfers;Ambulation;Clean ing;Laundry;Meals;Medicati on Management;Safety;Self Care;Shopping;Transportati on;Wheelchair Mobility (sit/dangle EOB AIRWAYS OPERATIONS SPECIALIST) Prior Functional Level Comments: sits EOB, Slide board transfers to the Electric scooter. OBJECTIVE: CURRENT FUNCTIONAL STATUS: Current Functional Mobility Assist Level Additional Information Rolling Maximal Assistance Supine to Sit Sit to Supine Scooting Maximal Assistance Sit to Stand Stand to Sit Bed to Chair Toilet/Commode Gait Stairs Curb Step Car Transfer Please see discipline specific clinical documentation flowsheet for complete details for this therapy evaluation/treatment. SIGNATURE: Tye Arnold PTA PATIENT NAME: Salazar Coyle DATE: January 14, 2018 TIME: 11:53 AM [facility] THERAPY NT HNO ID: [id number] Author: Deb Lundberg/Teresa Payne Service: Occupational Therapy Author Type: Occupational Therapist Type: Therapy (PT/OT/Speech/Resp) Filed: 01/14/2018 10:28 AM Note Text: Occupational Therapy Treatment SERVICE DATE: 01/14/2018 SERVICE TIME: 36 to 954 ROOM: [id number] Recommended Discharge Disposition: Subacute/SNF Recommended Discharge Disposition Comments: Pt presents with increased weakness/fatigue, decreased activity tolerance Pt would benefit from SNF stay prior to returning home for increased I in functional transfers Justification For Post Acute Needs: Anticipate that patient will require daily (5x/wk) skilled therapy in a post-acute facility setting at the time of acute hospital discharge;May not tolerate higher intensity programing;Willing to participate;Medically complex;Living the community premorbidly;Good family support;Cognition intact OT Recommendations to Nursing: Encourage patient participation with in-bed ADL?s;Not appropriate for out of bed activity at this time;Utilize bed in Chair Position OT 6 Clicks Score: 13 Precautions/Activity Restrictions: Fall Risk;Lines/Tubes/Drains Precaution/Activity Restriction Comments: IV, supplemental O2 Isolation Type: None ASSESSMENT: Patient presents with slow progress toward OT goals. Patient presents with increased fatigue/weakness, decreased activity tolerance, pain in RLE. Patient anxious, tearful at times. Anticipate further gains with skilled rehab in order to progress to prior level of function to allow safe return home with spouse. ? Patient Disposition at Start of Session: Supine in Bed;Call [facility] in Reach Patient Disposition at End of Session: Supine in Bed;Call [facility] in Reach Tolerated Full Session (supine in bed) Occupational Therapy Problem List: Education Deficit;Edema;Pain;Safety Deficits;Impaired Self Care;Decreased Activity Tolerance;Decreased Range Of Motion;Decreased Strength;Functional Mobility Impairment Patient /Caregiver Goals: Go To Rehab Goals for Plan of Care: Feeding with: Modified Independent Grooming with: Modified Independent Upper Body Dressing with: Modified Independent Tolerate (minutes of functional activity): 20 Functional Activity with: Stand By Assistance Additional Goal 1: Complete supine to sit EOB mod A x1 tolerate x10 min with min or less pain Progress Toward Goals: Progressing slower than expected Due To: Increased debility/weakness, decreased activity tolerance, pain in RLE and emotional/behavioral status. Rehab Potential: Good PLAN: Treatment Frequency (times per week): 3 (1-3) Current admission Treatment Interventions: Education;Self Care / Home Management;Energy Conservation Training;Strengthening;Fun ctional Mobility Training;Pain Management Plan of Care developed with: Patient (staff) TREATMENT INTERVENTIONS: Therapy Diagnosis: Reduced mobility-other;Decreased activities of daily living (ADL);Muscle Weakness (generalized);Abnormalitie s of gait and mobility-other;General symptoms and signs-other;Lack of coordination-other Interventions Provided: Self Correction Management (73562) Self Correction Management (73020) Treatment Minutes: 19 1 unit Skilled Intervention(s): Facilitated rolling to L side with physical assist and cueing for sequencing/completion, pt tearful with rolling. Facilitated pillow support to increase pt comfort with side lying. Facilitated supine ADL with HOB slightly elevated to increase ADL participation and increase activity tolerance. Provided assistance, cues,and sequencing to safely complete ADLs. Facilitated bilateral integration throughout oral hygiene. Edu pt on importance of changing positions while supine. Edu pt on fall prevention / up with assistance. Pt left in room bed with call light within reach. Total Timed Code Treatment Minutes: 19 Total Treatment Time (minutes): 19 FUNCTIONAL G CODE: OT 6 Clicks Score: 13 (01/14/18 0936) Self Care Current Status (G8987): CK (01/11/18 1050) Self Care Goal Status (G8988): CJ (01/11/18 1050) Based on clinical assessment and the score on the 6 Clicks Functional Assessment Tool, the G code and corresponding severity modifiers are documented above. SUBJECTIVE: Current Hospital Course: Chart reviewed and no significant medical updates relevant to therapy were noted. Active Hospital Problems Diagnosis - Morbid obesity with BMI of 70 and over, adult (HCC) - Cellulitis Reason for Occupational Therapy Consult: GEOMATICS PROFESSOR, mobilize Relevant Past Medical History: morbid obesity cellulitis Patient Report: Patient reports she recently moved from lying on R side to back before OT arrival. Pt reports increased R LE pain. Pt states "I need to let that foot rest before I move more." Pain: 5/10 FACES R LE Home Environment Patient Lives With: Significant Other () Assistance Available: 24 Hour Entry To Home: No Stairs Tub/Shower Type: sponge bathes Equipment Owned: Commode-Raised (hospital bed,electric scooter) Prior Functional Level: Required Assistance Assistance Required With: Transfers;Ambulation;Clean ing;Laundry;Meals;Medicati on Management;Safety;Self Care;Shopping;Transportati on;Wheelchair Mobility (sit/dangle EOB AIRWAYS OPERATIONS SPECIALIST) Prior Functional Level Comments: sits EOB, Slide board transfers to the Electric scooter. OBJECTIVE: Responsiveness: Awake Follows Commands: 1-step Commands;2-step Commands;Cueing Needed Cueing to Follow Commands: Minimum Attention Deficits: Other: See Comment (resolved, but still fixated on RLE pain) Memory Deficits: Short Term (minimal deficits noted) Executive Function Deficits: Judgement;Insight to Deficits;Problem Solving;Safety Awareness Safety Awareness Deficit: Moderate impairment Judgement Deficit: Moderate impairment Insight to Deficits: Moderate impairment Problem Solving Deficit: Moderate impairment CURRENT FUNCTIONAL STATUS: Current Activities of Daily Living Assist Level Feeding Supervision Grooming Minimal Assistance (supine in bed) Bathing Upper Body Moderate Assistance (supine in bed) Bathing Lower Body Maximal Assistance (supine in bed) Dressing Upper Body Moderate Assistance (supine in bed) Dressing Lower Body Maximal Assistance (supine in bed) Toileting Total Assistance (jose) Functional Mobility Assist Level Rolling Maximal Assistance Supine to Sit Sit to Supine Scooting Sit to Stand Stand to Sit Bed to Chair Toilet/Commode Functional Mobility Edu pt on fall prevention / up with assistance. Pt left in room in bed and call light within reach. Please see discipline specific clinical documentation flowsheet for complete details for this therapy evaluation/treatment. SIGNATURE: Cynthia Velasco/OT PATIENT NAME: Salazar Coyle DATE: January 14, 2018 TIME: 10:06 AM Normal [facility] PROGRESSon 01-13-2018 PROGRESS HNO ID: [id number] Author: Susan Greco Service: Hospital Medicine Author Type: Physician Type: Progress Notes Filed: 01/14/2018 12:13 PM Note Text: INTERNAL MEDICINE PROGRESS NOTE SERVICE DATE: 01/13/2018 SERVICE TIME: 8:15 PM ADMITTING PHYSICIAN: Cheryle Romero Subjective CHIEF COMPLAINT: f/u medical issues listed below Current Facility-Administered Medications: insulin glargine 65 Units pen (long acting) (LANTUS SOLOSTAR, BASAGLAR KWIKPEN) 65 Units SUBCUTANEOUS AT BEDTIME predniSONE 40 mg tab(s) (DELTASONE) 40 mg ORAL DAILY cyclobenzaprine 5-10 mg tab(s) (FLEXERIL) 5-10 mg ORAL TID PRN insulin regular human injection (short acting) (NovoLIN R,HumuLIN R) SUBCUTANEOUS w MEALS AND HS ceFAZolin iv piggyback 2 g in D5W (iso-osmotic) 100 mL (ANCEF) 2 g INTRAVENOUS q 8 HR oxyCODONE IR 5 mg tab(s) (ROXICODONE) 5 mg ORAL q 4 H PRN albuterol 2.5 mg /3 mL (0.083 %) 2.5 mg (PROVENTIL) 2.5 mg INHALATION q 4 H PRN ipratropium-albuterol 3 mL nebulizer solution (DUONEB) 3 mL INHALATION q 4 H while awake potassium chloride 80-120 mEq oral liquid 80-120 mEq ORAL/FEEDING TUBE PRN potassium chloride iv piggyback 20 mEq in sterile water 100 mL 20 mEq INTRAVENOUS PRN magnesium sulfate in water 2 g in sterile water 50 ml 2 g INTRAVENOUS PRN sodium phosphate 45 mmol in NaCl 0.9% 250 mL 45 mmol INTRAVENOUS PRN calcium gluconate 4 g in NaCl 0.9% 250 mL 4 g INTRAVENOUS PRN 0.9% NaCl 3-5 mL 3-5 mL INTRAVENOUS q 12 H dextrose 40 % 15 g 15 g ORAL PRN Or glucagon 1 mg injection (GLUCAGEN) 1 mg INTRAMUSCULAR PRN Or dextrose 50% in water 25 mL syringe 12.5 g INTRAVENOUS PRN acetaminophen 650 mg CUP (TYLENOL) 650 mg ORAL q 4 H PRN gabapentin 600 mg cap(s) (NEURONTIN) 600 mg ORAL QID atorvastatin 40 mg tab(s) (LIPITOR) 40 mg ORAL AT BEDTIME losartan 100 mg tab(s) (COZAAR) 100 mg ORAL DAILY metoprolol tartrate (short acting) 12.5 mg tab(s) (LOPRESSOR) 12.5 mg ORAL q 12 H amLODIPine 5 mg tab(s) (NORVASC) 5 mg ORAL DAILY apixaban 5 mg tab(s) (ELIQUIS) 5 mg ORAL BID bisacodyl 10 mg suppository (DULCOLAX) 10 mg RECTAL DAILY PRN miconazole 2 % 1 application topical powder (LOTRIMIN AF, DESENEX) 1 application TOPICAL BID INTERVAL HISTORY OF PRESENT ILLNESS: Objective PHYSICAL EXAM: Patient Vitals for the past 24 hrs: BP Temp Temp src Pulse Resp SpO2 01/13/18 1802 - - - 65 18 97 % 01/13/18 1420 - - - (!) 57 18 95 % 01/13/18 1300 145/62 36.6 ?C (97.9 ?F) - 64 18 97 % 01/13/18 0951 - - - (!) 59 18 94 % 01/13/18 0500 146/51 36.8 ?C (98.2 ?F) Oral 62 16 97 % 01/12/18 2047 140/56 37.2 ?C (99 ?F) Oral 71 16 95 % Body mass index is 79.36 kg/m?. GENERAL: Alert, no distress, cooperative. Morbid obesity SKIN: wounds noted LUNGS: Lungs clear to auscultation. CARDIAC: Normal S1 and S2; no rubs, murmurs, or gallops ABDOMEN: Abdomen soft, non-tender EXTREMITIES:Deep Tissue Injury right heel DATA: Diagnostic tests reviewed for today's visit: Significant findings were revd Assessment/Plan # Deep Tissue Injury right heel - friction wound to bilateral buttocks/posterior thighs- Wound care following- Cellulitis R leg- Per ID on 01/09/18: Continue ancef while in hospital, then DC with PO duricef x 10 days.- # morbid obesity- # DM2- # PAF hx- SIGNATURE: Susan Greco DO PATIENT NAME: Salazar Coyle DATE: January 13, 2018 TIME: 8:15 PM PAGER/CONTACT #: Marly [facility] PROGRESSon 01-12-2018 PROGRESS HNO ID: [id number] Author: Yeison Dockery Service: Hospital Medicine Author Type: Physician Type: Progress Notes Filed: 01/12/2018 12:29 PM Note Text: INPATIENT PROGRESS NOTE CHIEF COMPLAINT: sepsis INTERVAL HPI: no new complaints. Pt says she worked with PT yest and her R foot has been hurting more. She tells me she is not supposed to bear weight on that foor 2/2 heel ulcer PHYSICAL EXAM: BP 154/64 Pulse 64 Temp (Src) 97.9 (Oral) Resp 16 Ht 5' 7.008" (1.70m) Wt 506 lb 13.4 oz (229.9kg) SpO2 96% BMI 79.36 kg/(m2). GENERAL: Alert, no distress, cooperative, obese LUNGS: Lungs clear to auscultation, Good diaphragmatic excursion CARDIAC: Normal S1 and S2; no rubs, murmurs, or gallops ABDOMEN: Abdomen soft, non-tender, BS normal, No masses or organomegaly EXTREMITIES: multiple wounds on kaci thighs and R leg DATA: Diagnostic tests reviewed for today's visit: CBC, Coags, BMP, Mg, Phos Recent Labs 01/12/18 0245 01/11/18 0452 01/10/18 0415 WBC 5.01 5.60 5.34 HB 11.8 10.7* 10.6* HCT 37.1 34.4 34.3 PLT 227 229 224 Assessment/Plan ?#B/L LE cellulitis #Decubitus and LE wounds, diabetic vs pressure. No signs of OM ?-Bariatric dolphin bed, jose in place to due to bladder leakage which will prevent wound healing ?-cefazolin ?-appreicate ID recs. Plan to change to PO duricef at discharge ? #Encephalopathy-resolved thought to be multifactorial- hypoglycemia, opiate use and possibly hypercapnia?. Now resolved #Neurogenic bladder w/ overflow incont ?-jose placed for wound healing?. Urology recommends jose at Me? #Hypoxia mild- no complaints of hypoxia suspect obesity hypovent/PHOEBE. Noted mild exp wheezing started prednisone . Wean O2 as tolerated. May need O2 at DC #Type 2 diabetes mellitus with hyperglycemia (HCC) ?-cont home insulin reg ? #Hypertension-well controlled at this time ?-cont home meds ? #Morbid obesity BMI 60.0-69.9, adult (HCC)- specialty bed ? #PAF (paroxysmal atrial fibrillation) with recent stroke. Pt needs OAC. With her BMI of 79 will recommend coumadin for OAC but pt refusing. Was on eliquis previously but was not able to afford the medication. SW consulted for medication assistance? #Osteoarthritis #Chronic pain-appreciate pain management folllowing ? Plan SNF at [place]. Await precert ? SIGNATURE: Yeison Dockery MD PATIENT NAME: Salazar Coyle DATE: January 12, 2018 TIME: 12:26 PM PAGER: Normal [facility] CASE MANAGEMon 01-11-2018 CASE MANAGEM HNO ID: [id number] Author: Swathi Hammond) MATHEUS Mart Service: Care Management Author Type: Registered Nurse Type: Care Mgt Progress Note Filed: 01/11/2018 12:18 PM Note Text: CARE MANAGEMENT PROGRESS NOTE SERVICE DATE: 01/11/2018 SERVICE TIME: 12:17 PM LOS: 6 days Progress note Await precert for patient to go to [facility]. Patient will transport via cot- form completed. to continue to follow. SIGNATURE: Swathi Mart RN PATIENT NAME: Salazar Coyle DATE: January 11, 2018 TIME: 12:17 PM PAGER/CONTACT #: [phone] [facility] CONSULT PROGon 01-11-2018 CONSULT PROG HNO ID: [id number] Author: Jessica Hammond) MATHEUS Novak Service: Wound/Ostomy Author Type: Registered Nurse Type: Consult Progress Note Filed: 01/11/2018 2:31 PM Note Text: Wound Care Consult Team Assessment Note: PATIENT NAME: Salazar Coyle Reason for Assessment: Wound care follow up Assessment: Patient seen today by Michael Saxena HAND I THERMAL CUTTER and RN, see Wound Expert for detailed documentation. Patient's friction wound to bilateral buttocks/posterior thighs improving. Deep Tissue Injury right heel is deteriorating, becoming larger. Visit time: 38 minutes Wound Evaluation: see above Goals: Heal wound Recommendations: Continue bariatric bed, continue turn schedule, continue bilateral prevalon boots, continue mesalt and allevyn foam to right heel daily, continue allevyn foam to any friction areas buttocks/posterior thighs change every 3 days or when soiled, continue inter dry to abdominal and breast folds. Electronically Signed By: ANEESH Ruby,RN,CWON [facility] NUTRITIONon 01-11-2018 NUTRITION HNO ID: [id number] Author: Niharika Varma Service: Nutrition Therapy Author Type: Registered Dietitian Type: Nutrition Filed: 01/11/2018 3:03 PM Note Text: NUTRITION THERAPY SCREENING NOTE SERVICE DATE: 01/11/2018 SERVICE TIME: 10:35 NUTRITION CARE PLAN Intervention: 1. Continue Carbohydrate Controlled diet, encourage PO intake. 2. Order Pete BID to promote wound healing- provides 80 kcal and 14 g pro per serving. Discharge Nutrition Recommendations: Diet: High Protein, Carbohydrate Controlled Reason for Assessment: length of stay 6 days Met with patient who reported her appetite and intake are "fine." She said her appetite is somewhat decreased compared to what it was prior to admission r/t pain. Weight has been increasing. Educated patient on high protein food sources for wound healing and she was agreeable to trying Pete. Per HPI: This is a 67 year old female who presented with worsening LE pain and wounds. She has had prior LE ankle wounds and now was having redness and pain over her R lyons. She denies any other acute complaints including N/V/D/F/C/SOB/CP/COFFMAN/LOC. She did require 2L O2 in the ER to maintain her O2 sats. She was admitted 3 months ago for AMS and was found to have stroke. She has A-fib and is currently anticoagulated. The patient has persistent R arm weakness due to stroke and RLE weakness/chronic pain due to old injury. She does follow her wounds in wound care clinic. 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, Lumbar Region Type 2 Diabetes Mellitus With Hyperglycemia ([facility]) Wounds, Multiple Paf (Paroxysmal Atrial Fibrillation) ([facility]) Osteoarthritis Hypertension Hyperlipemia Foot Ulcer ([facility]) Tia (Transient Ischemic Attack) Bmi 60.0-69.9, Adult ([facility]) Stroke ([facility]) Patient Noncompliant With Anticoagulant Medication Chronic Pain Cellulitis Morbid Obesity With Bmi of 70 and Over, Adult ([facility]) Current Diet Order DIET CARBOHYDRATE CONTROLLED Order Specific Question: Carbohydrate Control Answer: 3-5 CARBS/MEAL Nutritional Intake Prior to Admission: >75% estimated energy needs over the past 1+ week(s) 100% meal intake per flow sheet documentation. GI Symptoms: None Anthropometrics: Height: 170.2 cm (5' 7.01") Admission Weight: (!) 176.9 kg (390 lb) Current Weight: (!) 229.9 kg (506 lb 13.4 oz) Body mass index is 79.36 kg/m?. class 3 obesity Weight has increased by 20.1 kg over 1 years representing 11.6 % weight change potentially clinically significant but does not meet criteria to support a malnutrition diagnosis Last Wt 01/09/18 : (!) 229.9 kg (506 lb 13.4 oz) - question accuracy 10/18/17 : (!) 192.5 kg (424 lb 6.2 oz) 07/21/17 : (!) 207.5 kg (457 lb 7.3 oz) 02/26/17 : (!) 172.4 kg (380 lb) 04/27/16 : (!) 172.4 kg (380 lb) 01/20/16 : (!) 172.4 kg (380 lb) 12/13/15 : (!) 172.4 kg (380 lb) 01/25/15 : (!) 172.4 kg (380 lb) Recent Labs 01/11/18 0452 HB 10.7* HCT 34.4 WBC 5.60 MNT Billing Type: Initial Assess/15 min 2 units SIGNATURE: Niharika Varma RD PATIENT NAME: Salazar Coyle DATE: January 11, 2018 TIME: 2:49 PM PAGER: [phone] Normal [facility] PROGRESSon 01-11-2018 PROGRESS HNO ID: [id number] Author: Yeison Dockery Service: Hospital Medicine Author Type: Physician Type: Progress Notes Filed: 01/11/2018 1:56 PM Note Text: INPATIENT PROGRESS NOTE CHIEF COMPLAINT: sepsis INTERVAL HPI: no new complaints. Unable to wean O2 to RA PHYSICAL EXAM: BP 113/47 Pulse 64 Temp (Src) 98.6 (Oral) Resp 18 Ht 5' 7.008" (1.70m) Wt 506 lb 13.4 oz (229.9kg) SpO2 90% BMI 79.36 kg/(m2). GENERAL: Alert, no distress, cooperative, morbidly obese LUNGS:faint exp wheezingCARDIAC: Normal S1 and S2; no rubs, murmurs, or gallops ABDOMEN: Abdomen soft, non-tender, BS normal, No masses or organomegaly EXTREMITIES wounds kaci thighs and R leg DATA: Diagnostic tests reviewed for today's visit: CBC, Coags, BMP, Mg, Phos Recent Labs 01/11/18 0452 01/10/18 0415 01/09/18 0500 WBC 5.60 5.34 5.08 HB 10.7* 10.6* 10.2* HCT 34.4 34.3 33.5* PLT 229 224 239 Assessment/Plan #B/L LE cellulitis #Decubitus and LE wounds, diabetic vs pressure. No signs of OM ?-Bariatric dolphin bed, jose in place to due to bladder leakage which will prevent wound healing ?-cefazolin ?-appreicate ID recs. Plan to change to PO duricef at discharge ? #Encephalopathy-resolved thought to be multifactorial- hypoglycemia, opiate use and possibly hypercapnia?. Now resolved #Neurogenic bladder w/ overflow incont ?-jose placed for wound healing?. Urology recommends jose at Me? #Hypoxia mild- no complaints of hypoxia suspect obesity hypovent/PHOEBE. Noted mild exp wheezing. Will start prednisone and monitor #Type 2 diabetes mellitus with hyperglycemia (HCC) ?-cont home insulin reg ? #Hypertension-well controlled at this time ?-cont home meds ? #Morbid obesity BMI 60.0-69.9, adult (HCC)- specialty bed ? #PAF (paroxysmal atrial fibrillation) with recent stroke. Pt needs OAC. With her BMI of 79 will recommend coumadin for OAC but pt refusing. Was on eliquis previously but was not able to afford the medication. SW consulted for medication assistance? #Osteoarthritis #Chronic pain-appreciate pain management folllowing ? Plan SNF [place]. Await precert ? SIGNATURE: Yeison Dockery MD PATIENT NAME: Salazar Coyle DATE: January 11, 2018 TIME: 1:54 PM PAGER: [facility] PROGRESS HNO ID: [id number] Author: Vidya Strange Service: Pain Management Author Type: Physician Type: Progress Notes Filed: 01/11/2018 10:49 AM Note Text: Salazar Coyle [id number] PAIN MANAGEMENT TEAM PAIN DIAGNOSIS: Bilateral lower extremity wounds with pain, morbid obesity, diabetic neuropathy, sciatica, DJD Pain Score/Description: "right side pain" R hip area/leg- about the same INTERVAL HPI: 01/08 ID R leg cellulitis likely due to foot ulcer; change to IV ancef; R foot xray pending 01/06 transfer to MICU secondary to confusion?responsiveness. Received 3 doses of Narcan, does not appear in the overall benefit. Also noted to have a profoundly low blood sugar. Also demonstrated with CO2 retention SUBJECTIVE HPI: This is a 67 year old female who presents with bilateral lower extremity wounds, chronic with development of increased pain, and erythema especially involving the right leg. This patient has been followed in wound clinic for extended period of time, and has multiple comorbidities including right-sided weakness following a remote CVA. This patient also maintains that she has not been able to weight-bear on her right side also secondary to chronic wound issues and nonhealing. She has back pain as described above, chronic, low back with radicular component down posterior right leg into her foot. She has not undergone any type of prior radiologic evaluation secondary to her other medical problems and not considered a candidate for surgery. She is , resides with her who assist her with activities of daily living including assistance with wound care. She is nonweightbearing, essentially wheelchair confined, rise to keep her leg elevated as much as possible, home confined, does not have a visiting nurse or home health 8. Review of [place] Automated RX Reporting System shows no concerns, with her recent prescription history as follows: 12/24/2017 1 12/24/2017 OXYCODON-ACETAMINOPHEN 7.5-325 45 15 [place] [id number] ANDRE([id number]) 0 33.75 MME Medicare [place] 12/10/2017 1 12/10/2017 GABAPENTIN 600 MG TABLET 120 30 TN [place] [id number] ANDRE([id number]) 0 [place] 12/10/2017 1 12/10/2017 OXYCODONE HCL 5 MG TABLET 60 15 TN [place] [id number] ANDRE([id number]) 0 30.00 MME [place] 11/09/2017 1 10/10/2017 OXYCODONE HCL 5 MG TABLET 120 30 TN [place] [id number] ANDRE([id number]) 0 30.00 MME [place] 10/10/2017 1 10/10/2017 OXYCODONE HCL 5 MG TABLET 120 30 TN [place] [id number] ANDRE([id number]) 0 30.00 MME [place] 09/07/2017 1 08/31/2017 OXYCODONE HCL 5 MG TABLET 120 30 TN [place] [id number] ANDRE([id number]) 0 30.00 MME [place] 08/31/2017 1 08/31/2017 GABAPENTIN 600 MG TABLET 120 30 TN [place] [id number] ANDRE([id number]) 0 [place] 08/15/2017 2 08/05/2017 OXYCODONE HCL 5 MG TABLET 30 7 TH LEH [id number] ABS([id number]) 0 32.[address] [facility] [place] 08/08/2017 1 07/05/2017 OXYCODONE HCL 5 MG TABLET 120 30 AN KOG [id number] ANDRE([id number]) 0 30.00 MME [place] 08/06/2017 2 08/05/2017 OXYCODONE HCL 5 MG TABLET 30 7 TH LEH [id number] ABS([id number]) 0 32.[address] [facility] [place] On 12/24/2017 her opiates were essentially increased to Percocet 7.5/325 with anticipated use of 3 times a day, prior to this was utilizing oxycodone 5 mg approximately 4 times a day. Her last prescription for Percocet 7.5/325 was For #45 pills on 12/24. She is also on gabapentin 600 mg 4 times a day. 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 This change in dose occurred on the day of admission. MEDICATIONS Current Facility-Administered Medications: cyclobenzaprine 5-10 mg tab(s) (FLEXERIL) 5-10 mg ORAL TID PRN Vidya K Scantling 10 mg at 01/10/18 1533 insulin regular human injection (short acting) (NovoLIN R,HumuLIN R) SUBCUTANEOUS w MEALS AND HS Reyna (Patrick) ZINA Leigh.MANAGER PRESENTATION 2 Units at 01/10/182153 ceFAZolin iv piggyback 2 g in D5W (iso-osmotic) 100 mL (ANCEF) 2 g INTRAVENOUS q 8 HR Diego Obando Last Rate: 200 mL/hr at 01/11/18441 2 g at 01/11/18441 oxyCODONE IR 5 mg tab(s) (ROXICODONE) 5 mg ORAL q 4 H PRN Carlos Roberts Preethi 5 mg at 01/11/18441 albuterol 2.5 mg /3 mL (0.083 %) 2.5 mg (PROVENTIL) 2.5 mg INHALATION q 4 H PRN Yashu (Res) Jolene ipratropium-albuterol 3 mL nebulizer solution (DUONEB) 3 mL INHALATION q 4 H while awake Ki (Res) Pannikottu 3 mL at 01/10/181941 potassium chloride 80-120 mEq oral liquid 80-120 mEq ORAL/FEEDING TUBE PRN Zachariah (Res) MD Kim potassium chloride iv piggyback 20 mEq in sterile water 100 mL 20 mEq INTRAVENOUS PRN Zachariah (Res) MD Kim magnesium sulfate in water 2 g in sterile water 50 ml 2 g INTRAVENOUS PRN Zachariah (Res) MD Kim sodium phosphate 45 mmol in NaCl 0.9% 250 mL 45 mmol INTRAVENOUS PRN Zachariah (Res) MD Kim calcium gluconate 4 g in NaCl 0.9% 250 mL 4 g INTRAVENOUS PRN Zachariah (Res) MD Kim 0.9% NaCl 3-5 mL 3-5 mL INTRAVENOUS q 12 H Zachariah (Res) MD Kim 5 mL at 01/10/182154 dextrose 40 % 15 g 15 g ORAL PRN Zachariah (Res) MD Kim Or glucagon 1 mg injection (GLUCAGEN) 1 mg INTRAMUSCULAR PRN Zachariah (Res) MD Kim Or dextrose 50% in water 25 mL syringe 12.5 g INTRAVENOUS PRN Zachariah (Res) MD Kim insulin glargine 45 Units pen (long acting) (LANTUS SOLOSTAR, BASAGLAR KWIKPEN) 45 Units SUBCUTANEOUS AT BEDTIME Zachariah (Res) MD Kim 45 Units at 01/10/182150 acetaminophen 650 mg CUP (TYLENOL) 650 mg ORAL q 4 H PRN Zachariah (Res) MD Kim 650 mg at 01/09/18 0904 gabapentin 600 mg cap(s) (NEURONTIN) 600 mg ORAL QID Jesus Galindo, DO 600 mg at 01/10/182152 atorvastatin 40 mg tab(s) (LIPITOR) 40 mg ORAL AT BEDTIME Jesus Galindo, DO 40 mg at 01/10/182152 losartan 100 mg tab(s) (COZAAR) 100 mg ORAL DAILY Jesus Galindo, DO 100 mg at 01/10/18 1203 metoprolol tartrate (short acting) 12.5 mg tab(s) (LOPRESSOR) 12.5 mg ORAL q 12 H Jesus Galindo, DO 12.5 mg at 01/10/182151 amLODIPine 5 mg tab(s) (NORVASC) 5 mg ORAL DAILY Jesus Acostaan, DO 5 mg at 01/10/18 115 apixaban 5 mg tab(s) (ELIQUIS) 5 mg ORAL BID Jesus Galindo, DO 5 mg at 01/10/182151 bisacodyl 10 mg suppository (DULCOLAX) 10 mg RECTAL DAILY PRN Jesus Galindo, DO miconazole 2 % 1 application topical powder (LOTRIMIN AF, DESENEX) 1 application TOPICAL BID Julio C Obando 1 application at 01/10/182154 Prescriptions Prior to Admission: aspirin 81 mg chewable tablet Take 81 mg by mouth once daily. Disp: Rfl: oxyCODONE-acetaminophen (PERCOCET) 7.5-325 mg tablet Take 1 tablet by mouth three times daily. Disp: Rfl: amLODIPine (NORVASC) 5 mg tablet Take 1 tablet by mouth once daily. Disp: Rfl: atorvastatin (LIPITOR) 40 mg tablet Take 1 tablet by mouth daily at bedtime. Disp: Rfl: bisacodyl (DULCOLAX) 10 mg supp 1 Suppository by RECTAL route once daily as needed. Disp: Rfl: cyclobenzaprine (FLEXERIL) 10 mg tablet Take 1 tablet by mouth three times daily as needed for Muscle Spasm. Disp: Rfl: insulin lispro (HUMALOG KWIKPEN) 100 unit/mL inpn Inject 22 Units subcutaneously w MEALS. Disp: Rfl: insulin lispro (HUMALOG KWIKPEN) 100 unit/mL pen If Blood Glucose (mg/dL) is: Less than 110= 0 units, 111-150= 0 units, 151-200= 3 units, 201-250= 6 units, 251-300= 9 units, 301-350= 12 units, 351-400= 15 units, Greater than 400= 18 units, Disp: Rfl: metoprolol tartrate, short acting, (LOPRESSOR) 25 mg tablet Take 0.5 tablets by mouth every 12 hours. Disp: Rfl: amitriptyline (ELAVIL) 10 mg tablet Take 20 mg by mouth daily at bedtime. Disp: Rfl: miconazole (MONISTAT-DERM,MAY) 2 % cream Apply 1 application to affected area twice daily. Disp: 90 g Rfl: 1 LANTUS SOLOSTAR 100 unit/mL (3 mL) inpn Inject 65 units subcutaneously at bedtime Disp: 10 Pen Rfl: 6 07/19/2017 at Unknown time NOVOLOG FLEXPEN 100 unit/mL inpn Dose varies units with meals, using about 66 total units a day (Patient taking differently: Inject 22 Units subcutaneously three times daily with meals. ) Disp: 10 Pen Rfl: 6 07/20/2017 at Unknown time gabapentin (NEURONTIN) 600 mg tablet 600 mg four times daily. Disp: Rfl: 07/20/2017 at Unknown time NOVOFINE 30 30 gauge x 1/3" ndle 1 Pen Needle four times daily. Disp: 120 Each Rfl: 2 Unknown at Unknown time lidocaine (LIDODERM) 5 % Apply 3 Patches as directed every 12 hours. Two patches to right hip, 1 patch to left thigh Disp: Rfl: Unknown at Unknown time baclofen (LIORESAL) 20 mg tablet 20 mg three times daily. Disp: Rfl: 07/20/2017 at Unknown time losartan (COZAAR) 100 mg tablet Take 100 mg by mouth once daily. Disp: Rfl: 07/20/2017 at Unknown time PAST MEDICAL HISTORY PAST MEDICAL HISTORY Diagnosis Date - Back pain - Foot ulcer (HCC) - Generalized weakness - Hip pain - Hyperlipemia - Hypertension - Morbid obesity (HCC) - Muscle spasm of back - Osteoarthritis - PAF (paroxysmal atrial fibrillation) (HCC) - Rotator cuff tear - Stroke (HCC) - Type 2 diabetes mellitus with hyperglycemia (HCC) PAST SURGICAL HISTORY PAST SURGICAL HISTORY Procedure Laterality Date - APPENDECTOMY - BLADDER SURGERY HX - TONSILLECTOMY HX - TUBAL LIGATION HX ALLERGIES No Known Allergies FAMILY HISTORY Problem Relation Age of Onset - Heart Mother - Diabetes Mother - Stroke Father - Cancer Other - Osteoporosis Other Social History Substance Use Topics - Smoking status: Never Smoker - Smokeless tobacco: Never Used - Alcohol use No Social History Narrative None on file REVIEW OF SYSTEMS: all of the following reviewed and negative except as noted below: GENERAL: no fever, chills, sweats, weight loss, fatigue, generalized weakness HEENT: no headache, vision changes, eye discomfort, hearing change, ear discomfort, sinus pain, nasal discharge or congestion, oral lesions, soreness, dental problem NECK: no adenopathy, discomfort, change in ROM CHEST: no shortness of breath, dyspnea on exertion, wheezing, cough, sputum production or chest pain HEART: no chest pain, palpitations, syncope ABDOMEN: no nausea, vomiting, constipation, diarrhea, abdominal pain : no dysuria, urgency, frequency, history of stones, incontinence NEURO: no confusion or alteration in consciousness, slurred speech, seizure, focal weakness EXTREMITIES: no new pain, edema, change in ROM HEME: no new adenopathy, bruises, petechiae PSYCH: no depression, anxiety, agitation OBJECTIVE PHYSICAL EXAMINATION: see below for new or abnormal findings BP 113/47 Pulse 60 Temp (Src) 98.6 (Oral) Resp 18 Ht 5' 7.008" (1.70m) Wt 506 lb 13.4 oz (229.9kg) SpO2 97% BMI 79.36 kg/(m2). GENERAL: well nourished and developed; no acute distress; alert and oriented x 3; intact judgement and insight. HEENT: no evidence of trauma; cranial nerves intact; eyes clear EOMI; no hearing deficits apparent; nasal passages unremarkable; throat and mucous membranes clear NECK: supple without lymphadenopathy; no JVD; no thyromegaly CHEST: clear bilaterally to auscultation; normal chest movement; no rales or rhonchi HEART: regular rate and rhythm, normal S1 and S2, no murmurs, clicks, rubs, or gallops ABDOMEN: soft; nondistended; bowel sounds present; no hepatomegaly; no splenomegaly; no tenderness EXTREMITIES: no evidence of clubbing; no cyanosis; no deformity; no joint effusion; no edema + some erythema anterior distal leg; well demarcated NEURO: cranial nerves intact; no focal deficits; no confusion; no tremor; sensorium normal SKIN: no rash; R heel pressure injury HEME: no bruising; no adenopathy PSYCH: no evidence of depression; no anxiety; no agitation; no apparent hallucinations DATA: CBC: Recent Labs 01/11/18 0452 WBC 5.60 RBC 3.45* HB 10.7* HCT 34.4 PLT 229 MCV 99.7* MCH 31.0 MPV 10.9 RDW 14.7* CMP: No results for input(s): NA, K, CHLOR, CO2, BUN, CREAT, GLUC, TPROT, CA, MG, ALBUMIN, TBILI, ALKPHOS, ALT, AST, ANION in the last 24 hours. Heme: No results for input(s): RETICP, ABSRETIC, LD, GISELE, FE, TIBC, TRANSFERSAT in the last 24 hours. 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 [facility] Rx at D/C: Yes Rx on chart: No OARRS: 12/24/17 Percocet 7.5/325 #45/[address] Jasso 12/10/17 Oxyir 5mg #60/[address] Jasso 12/10/17 Neurontin 600mg #120/[address] Jasso Pain Regimen/Notes (Opiate use last 24 hrs): Flexeril 5-10mg po tid prn x 10mg x one Neurontin 600mg qid x 4 Oxycodone 5mg po q4h prn x 3 doses S/p Narcan 0.4mg IV x 2, 0.8mg IV x 1 on 01/06 PLAN: Urine tox screen-negative opiates (concerning since prescribed Percocet AIRWAYS OPERATIONS SPECIALIST), waiting for confirmation test in the event this is a false negative-confirmation test takes 3-5 days to get results back. Once results are back our team will notify her pain management physician with any concerns. Continue reduced Oxycodone at 5 mg q4h prn moderate-severe pain; chronic multifactorial pain; opiate dependent x years S/p Narcan x 3 on 01/06, s/p decrease Oxycodone; Baclofen discontinued. Patient at higher risk of opiate induced respiratory depression with morbid obesity; OHS Change Flexeril 5-10 mg po tid prn Follow-up with [facility] Fortunately, pt now agreeable for SNF at discharge. Will sign off; re-contact if our team can assist further Vidya Strange MD [facility] THERAPY NTon 01-11-2018 THERAPY NT HNO ID: [id number] Author: Dorina (Otr/LJulio Levin Service: Occupational Therapy Author Type: Occupational Therapist Type: Therapy (PT/OT/Speech/Resp) Filed: 01/11/2018 1:38 PM Note Text: Occupational Therapy Treatment SERVICE DATE: 01/11/2018 SERVICE TIME: 1050 to 1133 ROOM: [place] [address] Recommended Discharge Disposition: Subacute/SNF Justification For Post Acute Needs: Anticipate that patient will require daily (5x/wk) skilled therapy in a post-acute facility setting at the time of acute hospital discharge;May not tolerate higher intensity programing;Willing to participate;Medically complex;Living the community premorbidly;Good family support;Cognition intact OT Recommendations to Nursing: Encourage patient participation with in-bed ADL?s;Utilize bed in Chair Position (as safety/tolerance allows) OT 6 Clicks Score: 15 Precautions/Activity Restrictions: Fall Risk;Lines/Tubes/Drains Precaution/Activity Restriction Comments: IV, supplemental O2 Isolation Type: None ASSESSMENT: Patient presents with slow progress toward OT goals. Patient is limited by debility/weakness, decreased activity tolerance, pain in RLE and emotional/behavioral status. Patient anxious, tearful at times and is somewhat self limiting. Anticipate further gains with continued education and skilled rehab at Inpatient post acute level of care in order to progress to prior level of function to allow safe return home with spouse. Patient Disposition at Start of Session: Supine in Bed;Call Osborne in Reach Patient Disposition at End of Session: Supine in Bed;Call Osborne in Reach Tolerated Full Session (at supine/slightly elevated position in bed only) Occupational Therapy Problem List: Education Deficit;Edema;Pain;Safety Deficits;Impaired Self Care;Decreased Activity Tolerance;Decreased Range Of Motion;Decreased Strength;Functional Mobility Impairment Patient /Caregiver Goals: Go To Rehab Goals for Plan of Care: Feeding with: Modified Independent Grooming with: Modified Independent Upper Body Dressing with: Modified Independent Tolerate (minutes of functional activity): 20 Functional Activity with: Stand By Assistance Additional Goal 1: Complete supine to sit EOB mod A x1 tolerate x10 min with min or less pain Progress Toward Goals: Progressing slower than expected Due To: RLE pain, some self limiting behavior Rehab Potential: Fair PLAN: Treatment Frequency (times per week): 3 (1-3) Current admission Treatment Interventions: Education;Self Care / Home Management;Energy Conservation Training;Strengthening;Fun ctional Mobility Training;Pain Management Plan of Care developed with: Patient (staff) TREATMENT INTERVENTIONS: Therapy Diagnosis: Reduced mobility-other;Decreased activities of daily living (ADL);Muscle Weakness (generalized);Abnormalitie s of gait and mobility-other;General symptoms and signs-other;Lack of coordination-other Interventions Provided: Self Correction Management (91830);Therapeutic Exercise (92686) Therapeutic Exercise (58937) Treatment Minutes: 10 1 unit Skilled Intervention(s): Provided BUE AROM/AAROM exercises as tolerated at supine level in bed. Patient completed LUE AROM with cuing, however requires assist/AAROM for R shoulder exercises due to residual deficits from prior CVA. Only tolerates minimal UE activity prior to fatigue. Encouraged increased exercise to increase strength for ADL/ADL mobility. Self Correction Management (48687) Treatment Minutes: 33 2 units Skilled Intervention(s): ADL training provided at bed level, with tasks completed or simulated as tolerated. Functional status as noted in table below. Set up provided of ADL supplies for UB bathing, grooming, washing hair, as well as meal set up at end of session with patient in side lying to left side, propped on elbow. Cues for holding head up/neck strengthening to increase ability to wash/comb hair. Education provided for improved functional positioning at bed level, with multiple options offered to support RLE and offset pressure/pain as able. Education as to importance of upright posture/sitting with HOB elevated to increase safety/body functions and functional ability to participate in ADL provided. Patient with limited understanding/acceptance of recommendations. Review of plan of care and discharge recommendation provided. Patient positioned for comfort on side in bed and noon meal tray set up for functional reach as declined HOB up. Call light and needs in reach. Reinforced use of call light for safety. Total Timed Code Treatment Minutes: 43 Total Treatment Time (minutes): 43 FUNCTIONAL G CODE: OT 6 Clicks Score: 15 (01/11/18 1050) Self Care Current Status (G8987): CK (01/11/18 1050) Self Care Goal Status (G8988): CJ (01/11/18 105) Based on clinical assessment and the score on the 6 Clicks Functional Assessment Tool, the G code and corresponding severity modifiers are documented above. SUBJECTIVE: Current Hospital Course: Chart reviewed and no significant medical updates relevant to therapy were noted. Patient continues with Bilateral lower extremity wounds with pain, morbid obesity, diabetic neuropathy, sciatica, DJD. Reason for Occupational Therapy Consult: GEOMATICS PROFESSOR, mobilize Relevant Past Medical History: morbid obesity cellulitis Patient Report: Patient mildly tearful at times, anxious and "overwhelmed". "I just did too much this morning, it was too much" regarding personal care and PT session. Patient c/o pain in RLE at 10/10-constant. Better at rest in supine, with patient declining HOB elevated more than 30 degrees for ADLdue to "makes my leg hurt more". Patient very particular about the way things are set up for her for ADL/meals, with only minimal acceptance of education to improve functional status due to RLE pain. "I have to do it my way or I can't take it." Patient c/o cough and being "hoarse", with physician briefly in room and is addressing. Home Environment Patient Lives With: Significant Other () Assistance Available: 24 Hour Entry To Home: No Stairs Tub/Shower Type: sponge bathes Equipment Owned: Commode-Raised (hospital bed,electric scooter) Prior Functional Level: Required Assistance Assistance Required With: Transfers;Ambulation;Clean ing;Laundry;Meals;Medicati on Management;Safety;Self Care;Shopping;Transportati on;Wheelchair Mobility (sit/dangle EOB AIRWAYS OPERATIONS SPECIALIST) Prior Functional Level Comments: sits EOB, Slide board transfers to the Electric scooter. OBJECTIVE: Responsiveness: Alert;Awake Follows Commands: 1-step Commands;2-step Commands;Cueing Needed Cueing to Follow Commands: Minimum Attention Deficits: Other: See Comment (resolved, but still fixated on RLE pain) Memory Deficits: Short Term (minimal deficits noted) Executive Function Deficits: Judgement;Insight to Deficits;Problem Solving;Safety Awareness Safety Awareness Deficit: Moderate impairment Judgement Deficit: Moderate impairment Insight to Deficits: Moderate impairment Problem Solving Deficit: Moderate impairment CURRENT FUNCTIONAL STATUS: Current Activities of Daily Living Assist Level Feeding Supervision (with set up in partially elevated position, sidelying) Grooming Minimal Assistance Bathing Upper Body Moderate Assistance Bathing Lower Body Moderate Assistance Dressing Upper Body Moderate Assistance Dressing Lower Body Moderate Assistance Toileting Total Assistance (assist of 2 bed level) Functional Mobility Assist Level Rolling Maximal Assistance (roll to left side/prop on elbow for ADL;HOB 25-30 degrees) Supine to Sit Other: See Comment (up with PT earlier this am-declined further attempts) Bed to Chair Other: See Comment (refuses HOB elevated or "chair like position" of bed) Toilet/Commode Total Assistance (catheter dependent) Hand Dominance: Right Range of Motion: Upper Extremity Comments R Upper Extremity ROM Comments: Residual deficits from CVA L Upper Extremity ROM Comments: grossly intact Strength: Upper Extremity Comments Strength Limitation Comments: RUE limited due to prior CVA; LUE 4-/5 to 4/5 overall Activity Tolerance: Sitting Activity Sitting Activity: only tolerating HOB elevated to 20-30 degrees briefly, then insists on lowering. C/O increased RLE pain with not being almost supine. Tolerated laying to left side/propping on elbow for meal/simple ADL in brief increments. Sitting Activity Tolerance (in minutes): 0 (did not tolerate HOB up, edge of bed with OT today) Functional Performance Test Functional PerformanceTest: (followed instruction but BLE weak for 15 second mobility leslie) Please see discipline specific clinical documentation flowsheet for complete details for this therapy evaluation/treatment. SIGNATURE: EARL Tian/L PATIENT NAME: Salazar Coyle DATE: January 11, 2018 TIME: 12:31 PM Normal [facility] THERAPY NT HNO ID: [id number] Author: Monika (Pt) ROXANA Borja Service: Physical Therapy Author Type: Physical Therapist Type: Therapy (PT/OT/Speech/Resp) Filed: 01/11/2018 11:28 AM Note Text: Physical Therapy Evaluation SERVICE DATE: 01/11/2018 SERVICE TIME: 0945 to 1030 ROOM: [place] [address] Present on Admission: - Cellulitis - Morbid obesity with BMI of 70 and over, adult (HCC) Recommended Discharge Disposition: Subacute/SNF Justification For Post Acute Needs: Anticipate that patient will require daily (5x/wk) skilled therapy in a post-acute facility setting at the time of acute hospital discharge;Willing to participate;Motivated PT Recommendations to Nursing: Sit at edge of bed;With assist of 1 person;Utilize bed in chair position;Not appropriate for OOB activity at this time PT 6 Clicks Score: 8 Precautions/Activity Restrictions: Fall Risk;Lines/Tubes/Drains Precaution/Activity Restriction Comments: supplemental O2 2L Isolation Type: None ASSESSMENT : Patient presents with slow progress towards PT goals today demonstrating demonstrating ability to sit edge of bed and remain seated edge of bed with CGA. Progress limited by anxiety, pain, and weakness. Requires skilled PT for for improvement of functional mobility and return to baseline activities. Without continued PT patient is at risk for further decline and increased burden of care. Patient Disposition at Start of Session: Supine in Bed;Call Osborne in Reach Patient Disposition at End of Session: Supine in Bed;Call Osborne in Reach Tolerance Limited By Fatigue;Pain (weakness) Physical Therapy Problem List: Pain;Impaired Self Care;Decreased Activity Tolerance;Decreased Range Of Motion;Decreased Strength;Functional Mobility Impairment Patient /Caregiver Goals: Go To Rehab Goals for Plan of Care: Able to perform HEP with: Minimal Assistance Rolling with: Minimal Assistance Transfer supine to/from sit with: Moderate Assistance Goal: able to scoot L and R in bed simulating slide transfer with min asist Progress Toward Goals: Progressing slower than expected Due To: pain, acuity of illness Rehab Potential: Good PLAN: Treatment Frequency (times per week): 5 (2-5) Current admission Treatment Interventions: Education;Joint Mobility;Strengthening;Fun ctional Mobility Training Plan of Care developed with: Patient TREATMENT INTERVENTIONS: Therapy Diagnosis: Reduced mobility-other;Muscle Weakness (generalized);Abnormalitie s of gait and mobility-other;General symptoms and signs-other Interventions Provided: Therapeutic Exercise (62650);Therapeutic Activity (25451) Therapeutic Exercise (97529) Treatment Minutes: 5 0 units Skilled Intervention(s): Patient performed 2x10 ankle pumps on LLE and 1x5 ankle pumps on RLE. Patient extremely anxious about moving RLE requiring near constant reassurance and emotional support. Patient unable to perform SAQ or QS due to anxiety and c/o pain. Educated patient that continuing to move LE and maintain strength would benefit functional mobility and wound healing. Therapeutic Activity (19312) Treatment Minutes: 40 3 units Skilled Intervention(s): Education provided to patient regarding role of physical therapy in the acute care setting including high-level clinical decision for discharge planning, nursing education to help patient improve activity in the hospital, and collaboration with the medical team in order to help patients achieve their optimal functional mobility and safety. Patient is afraid of further mobilization but with encouragement and education is semi-agreeable to perform bed mobility. Slow progress during bed mobility d/t pt's weight, weakness, and anxiety d/t pain. Patient states reasoning for problems to mobilize is d/t the fact that she's not in her own home and it's a different set up. Repeatedly blames the bed/rail positions etc for not being able to perform supine <> sit alone but also says she doesn't want help to move, she can do it at home. She moves very slowly thru tasks, requiring rest breaks. Patient extremely anxious with c/o pain - requires near constant reassurance during bed mobility and supine <> sit. Educated and instructed patient for bed mobility transfers using the log roll technique. Patient able to perform with PT guidance and assist level as noted below. First to use one or both LE in hook lying position to help initiate rolling and to reach across the body for rail or edge of mattress. Instructions then provided to the patient to bring LE off edge of bed and push up with arms to achieve side lying to sit edge of bed transfer. Encouraged use of rails only if necessary and/or if available at home/facility. To lie back down in bed, patient could bring her upper body to side lying but could Not bring her legs into bed after multiple tries. It was necessary for therapists to lift legs into bed - patient c/o pain R LE after procedure. Education provided and patient performed pursed lip breathing (PLB) as patient holds breath during functional mobility. Patient educated about benefit of continued mobilization and need to sit edge of bed in order to return to baseline function of transferring to w/c. Education and demonstration provided to patient regarding use of call light, which button to push and to call nursing to get out of bed. Total Timed Code Treatment Minutes: 45 Total Treatment Time (minutes): 45 SUBJECTIVE: Current Hospital Course: This is a 67 year old female who presents with bilateral lower extremity wounds, chronic with development of increased pain, and erythema especially involving the right leg. This patient has been followed in wound clinic for extended period of time, and has multiple comorbidities including right-sided weakness following a remote CVA. Reason for Physical Therapy Consult : GEOMATICS PROFESSOR Relevant Past Medical History: morbid obesity cellulitis Patient Report: Identification verified x2, patient agreeable to therapy. Pain 10/10 RLE. Patient in bed with call light and phone in reach on bedside table. Instructed to use call light and wait for assist. Home Environment Patient Lives With: Significant Other () Assistance Available: 24 Hour Entry To Home: No Stairs Tub/Shower Type: sponge bathes Equipment Owned: Commode-Raised (hospital bed,electric scooter) Prior Functional Level: Required Assistance Assistance Required With: Transfers;Ambulation;Clean ing;Laundry;Meals;Medicati on Management;Safety;Self Care;Shopping;Transportati on;Wheelchair Mobility (sit/dangle EOB AIRWAYS OPERATIONS SPECIALIST) Prior Functional Level Comments: sits EOB, Slide board transfers to the Electric scooter. OBJECTIVE: CURRENT FUNCTIONAL STATUS: Current Functional Mobility Assist Level Additional Information Rolling Maximal Assistance Supine to Sit Maximal Assistance (max Ax2) Sit to Supine Maximal Assistance (max Ax2) Scooting Maximal Assistance Sit to Stand (not progressed d/t weakness/unsafe; no sit<>stand baseline ) Stand to Sit Bed to Chair Toilet/Commode Gait Stairs Curb Step Car Transfer Balance: Dynamic Sitting Dynamic Sitting Balance: Contact Guard Assistance (fair) Activity Tolerance: Sitting Activity Sitting Activity: unsupported EOB Sitting Activity Tolerance (in minutes): 25 Please see discipline specific clinical documentation flowsheet for complete details for this therapy evaluation/treatment. SIGNATURE: DAVID Kebede PATIENT NAME: Salazar Coyle DATE: January 11, 2018 TIME: 10:42 AM Evaluation and/or treatment and patient care directly supervised by licensed PT Clinical Instructor. I reviewed and agree with the documentation corresponding to this therapy visit. SIGNATURE: Monika Borja, PT DATE: January 11, 2018 TIME: 11:08 AM 2 [facility] CASE MANAGEMon 01-10-2018 CASE MANAGEM HNO ID: [id number] Author: Swathi CisnerosRn) MATHEUS Mart Service: Care Management Author Type: Registered Nurse Type: Care Mgt Progress Note Filed: 01/10/2018 4:43 PM Note Text: CARE MANAGEMENT PROGRESS NOTE SERVICE DATE: 01/10/2018 SERVICE TIME: 4:39 PM LOS: 5 days Progress Note Met with patient at bedside with on speaker phone. D/C plan is [facility]. Spouse Jesus states that he and son are in the process of taking her bed from home and taking it to the facility. PT/OT notified to see patient ariane for updates to start precert. Discussed plan with Dr. Dockery and JUAN Castillo CM to continue to follow. SIGNATURE: Swathi Mart RN PATIENT NAME: Salazar Coyle DATE: January 10, 2018 TIME: 4:39 PM PAGER/CONTACT #: [phone] [facility] NURSING PROGon 01-10-2018 NURSING PROG HNO ID: [id number] Author: Shana CisnerosRn) MATHEUS Yang Service: (none) Author Type: Registered Nurse Type: Nursing Progress Note Filed: 01/10/2018 2:47 PM Note Text: Nursing Progress Note Patient Name: Salazar Coyle Patient [id number]-* Daily Note:per urology patient to go home or to f with damon This note was completed by: Shana Yang RN [facility] PROGRESSon 01-10-2018 PROGRESS HNO ID: [id number] Author: Vidya Strange Service: Pain Management Author Type: Physician Type: Progress Notes Filed: 01/10/2018 2:25 PM Note Text: Salazar Coyle [id number] PAIN MANAGEMENT TEAM PAIN DIAGNOSIS: Bilateral lower extremity wounds with pain, morbid obesity, diabetic neuropathy, sciatica, DJD Pain Score/Description: constant ache hips/back- worse right leg/hip INTERVAL HPI: 01/08 ID R leg cellulitis likely due to foot ulcer; change to IV ancef; R foot xray pending 01/06 transfer to MICU secondary to confusion?responsiveness. Received 3 doses of Narcan, does not appear in the overall benefit. Also noted to have a profoundly low blood sugar. Also demonstrated with CO2 retention SUBJECTIVE HPI: This is a 67 year old female who presents with bilateral lower extremity wounds, chronic with development of increased pain, and erythema especially involving the right leg. This patient has been followed in wound clinic for extended period of time, and has multiple comorbidities including right-sided weakness following a remote CVA. This patient also maintains that she has not been able to weight-bear on her right side also secondary to chronic wound issues and nonhealing. She has back pain as described above, chronic, low back with radicular component down posterior right leg into her foot. She has not undergone any type of prior radiologic evaluation secondary to her other medical problems and not considered a candidate for surgery. She is , resides with her who assist her with activities of daily living including assistance with wound care. She is nonweightbearing, essentially wheelchair confined, rise to keep her leg elevated as much as possible, home confined, does not have a visiting nurse or home health 8. Review of [place] Automated RX Reporting System shows no concerns, with her recent prescription history as follows: 12/24/2017 1 12/24/2017 OXYCODON-ACETAMINOPHEN [id number] [id number] 15 [place] [id number] ANDRE([id number]) 0 33.75 MME Medicare [place] 12/10/2017 1 12/10/2017 GABAPENTIN 600 MG TABLET 120 30 TN CARROLL [id number] ANDRE([id number]) 0 [place] 12/10/2017 1 12/10/2017 OXYCODONE HCL 5 MG TABLET 60 15 TN CARROLL [id number] ANDRE([id number]) 0 30.00 [place] 11/09/2017 1 10/10/2017 OXYCODONE HCL 5 MG TABLET 120 30 TN CARROLL [id number] ANDRE([id number]) 0 30.00 [place] 10/10/2017 1 10/10/2017 OXYCODONE HCL 5 MG TABLET 120 30 TN CARROLL [id number] ANDRE([id number]) 0 30.00 [place] 09/07/2017 1 08/31/2017 OXYCODONE HCL 5 MG TABLET 120 30 TN CARROLL [id number] ANDRE([id number]) 0 30.00 [place] 08/31/2017 1 08/31/2017 GABAPENTIN 600 MG TABLET 120 30 TN CARROLL [id number] ANDRE([id number]) 0 [place] 08/15/2017 2 08/05/2017 OXYCODONE HCL 5 MG TABLET 30 7 TH LEH [id number] ABS([id number]) 0 32.14 MME [facility] 08/08/2017 1 07/05/2017 OXYCODONE HCL 5 MG TABLET 120 30 AN KOG [id number] ANDRE([id number]) 0 30.00 [place] 08/06/2017 2 08/05/2017 OXYCODONE HCL 5 MG TABLET 30 7 TH LEH [id number] ABS([id number]) 0 32.14 MME [facility] On 12/24/2017 her opiates were essentially increased to Percocet 7.5/325 with anticipated use of 3 times a day, prior to this was utilizing oxycodone 5 mg approximately 4 times a day. Her last prescription for Percocet 7.5/325 was For #45 pills on 12/24. She is also on gabapentin 600 mg 4 times a day. 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 This change in dose occurred on the day of admission. MEDICATIONS Current Facility-Administered Medications: cyclobenzaprine 5-10 mg tab(s) (FLEXERIL) 5-10 mg ORAL TID PRN Vidya K Scantling insulin regular human injection (short acting) (NovoLIN R,HumuLIN R) SUBCUTANEOUS w MEALS AND HS Reyna (Remote Pilot OperatorJulio Leigh APRN.PATRICK ceFAZolin iv piggyback 2 g in D5W (iso-osmotic) 100 mL (ANCEF) 2 g INTRAVENOUS q 8 HR Diego Schwarzkins Last Rate: 200 mL/hr at 01/10/18418 2 g at 01/10/18 041 oxyCODONE IR 5 mg tab(s) (ROXICODONE) 5 mg ORAL q 4 H PRN Carlos Roberts Preethi 5 mg at 01/10/18 0350 albuterol 2.5 mg /3 mL (0.083 %) 2.5 mg (PROVENTIL) 2.5 mg INHALATION q 4 H PRN Yashu (Res) Jolene ipratropium-albuterol 3 mL nebulizer solution (DUONEB) 3 mL INHALATION q 4 H while awake Ki (Res) Pannikottu 3 mL at 01/09/182044 potassium chloride 80-120 mEq oral liquid 80-120 mEq ORAL/FEEDING TUBE PRN Zachariah (Res) MD Kim potassium chloride iv piggyback 20 mEq in sterile water 100 mL 20 mEq INTRAVENOUS PRN Zachariah (Res) MD Kim magnesium sulfate in water 2 g in sterile water 50 ml 2 g INTRAVENOUS PRN Zachariah (Res) MD Kim sodium phosphate 45 mmol in NaCl 0.9% 250 mL 45 mmol INTRAVENOUS PRN Zachariah (Res) MD Kim calcium gluconate 4 g in NaCl 0.9% 250 mL 4 g INTRAVENOUS PRN Zachariah (Res) MD Kim 0.9% NaCl 3-5 mL 3-5 mL INTRAVENOUS q 12 H Zachariah (Res) MD Kim 5 mL at 01/09/182047 dextrose 40 % 15 g 15 g ORAL PRN Zachariah (Res) MD Kim Or glucagon 1 mg injection (GLUCAGEN) 1 mg INTRAMUSCULAR PRN Zachariah (Res) MD Kim Or dextrose 50% in water 25 mL syringe 12.5 g INTRAVENOUS PRN Zachariah (Res) MD Kim insulin glargine 45 Units pen (long acting) (LANTUS SOLOSTAR, BASAGLAR KWIKPEN) 45 Units SUBCUTANEOUS AT BEDTIME Zachariah (Res) MD Kim 45 Units at 01/09/182054 acetaminophen 650 mg CUP (TYLENOL) 650 mg ORAL q 4 H PRN Zachariah (Res) MD Kim 650 mg at 01/09/18903 gabapentin 600 mg cap(s) (NEURONTIN) 600 mg ORAL QID Jesus Galindo, DO 600 mg at 01/09/182048 atorvastatin 40 mg tab(s) (LIPITOR) 40 mg ORAL AT BEDTIME Jesus Galindo, DO 40 mg at 01/09/182048 losartan 100 mg tab(s) (COZAAR) 100 mg ORAL DAILY Jesus Galindo, DO 100 mg at 01/09/18904 metoprolol tartrate (short acting) 12.5 mg tab(s) (LOPRESSOR) 12.5 mg ORAL q 12 H Jesus Galindo, DO 12.5 mg at 01/09/182048 amLODIPine 5 mg tab(s) (NORVASC) 5 mg ORAL DAILY Jesus Galindo, DO 5 mg at 01/09/18905 apixaban 5 mg tab(s) (ELIQUIS) 5 mg ORAL BID Jesus Galindo, DO 5 mg at 01/09/182051 bisacodyl 10 mg suppository (DULCOLAX) 10 mg RECTAL DAILY PRN Jesus Galindo, miconazole 2 % 1 application topical powder (LOTRIMIN AF, DESENEX) 1 application TOPICAL BID Julio C Obando 1 application at 01/09/18 2100 Prescriptions Prior to Admission: aspirin 81 mg chewable tablet Take 81 mg by mouth once daily. Disp: Rfl: oxyCODONE-acetaminophen (PERCOCET) 7.5-325 mg tablet Take 1 tablet by mouth three times daily. Disp: Rfl: amLODIPine (NORVASC) 5 mg tablet Take 1 tablet by mouth once daily. Disp: Rfl: atorvastatin (LIPITOR) 40 mg tablet Take 1 tablet by mouth daily at bedtime. Disp: Rfl: bisacodyl (DULCOLAX) 10 mg supp 1 Suppository by RECTAL route once daily as needed. Disp: Rfl: cyclobenzaprine (FLEXERIL) 10 mg tablet Take 1 tablet by mouth three times daily as needed for Muscle Spasm. Disp: Rfl: insulin lispro (HUMALOG KWIKPEN) 100 unit/mL inpn Inject 22 Units subcutaneously w MEALS. Disp: Rfl: insulin lispro (HUMALOG KWIKPEN) 100 unit/mL pen If Blood Glucose (mg/dL) is: Less than 110= 0 units, 111-150= 0 units, 151-200= 3 units, 201-250= 6 units, 251-300= 9 units, 301-350= 12 units, 351-400= 15 units, Greater than 400= 18 units, Disp: Rfl: metoprolol tartrate, short acting, (LOPRESSOR) 25 mg tablet Take 0.5 tablets by mouth every 12 hours. Disp: Rfl: amitriptyline (ELAVIL) 10 mg tablet Take 20 mg by mouth daily at bedtime. Disp: Rfl: miconazole (MONISTAT-DERM,MAY) 2 % cream Apply 1 application to affected area twice daily. Disp: 90 g Rfl: 1 LANTUS SOLOSTAR 100 unit/mL (3 mL) inpn Inject 65 units subcutaneously at bedtime Disp: 10 Pen Rfl: 6 07/19/2017 at Unknown time NOVOLOG FLEXPEN 100 unit/mL inpn Dose varies units with meals, using about 66 total units a day (Patient taking differently: Inject 22 Units subcutaneously three times daily with meals. ) Disp: 10 Pen Rfl: 6 07/20/2017 at Unknown time gabapentin (NEURONTIN) 600 mg tablet 600 mg four times daily. Disp: Rfl: 07/20/2017 at Unknown time NOVOFINE 30 30 gauge x 1/3" ndle 1 Pen Needle four times daily. Disp: 120 Each Rfl: 2 Unknown at Unknown time lidocaine (LIDODERM) 5 % Apply 3 Patches as directed every 12 hours. Two patches to right hip, 1 patch to left thigh Disp: Rfl: Unknown at Unknown time baclofen (LIORESAL) 20 mg tablet 20 mg three times daily. Disp: Rfl: 07/20/2017 at Unknown time losartan (COZAAR) 100 mg tablet Take 100 mg by mouth once daily. Disp: Rfl: 07/20/2017 at Unknown time PAST MEDICAL HISTORY PAST MEDICAL HISTORY Diagnosis Date - Back pain - Foot ulcer (HCC) - Generalized weakness - Hip pain - Hyperlipemia - Hypertension - Morbid obesity (HCC) - Muscle spasm of back - Osteoarthritis - PAF (paroxysmal atrial fibrillation) (HCC) - Rotator cuff tear - Stroke (HCC) - Type 2 diabetes mellitus with hyperglycemia (HCC) PAST SURGICAL HISTORY PAST SURGICAL HISTORY Procedure Laterality Date - APPENDECTOMY - BLADDER SURGERY HX - TONSILLECTOMY HX - TUBAL LIGATION HX ALLERGIES No Known Allergies FAMILY HISTORY Problem Relation Age of Onset - Heart Mother - Diabetes Mother - Stroke Father - Cancer Other - Osteoporosis Other Social History Substance Use Topics - Smoking status: Never Smoker - Smokeless tobacco: Never Used - Alcohol use No Social History Narrative None on file REVIEW OF SYSTEMS: all of the following reviewed and negative except as noted below: GENERAL: no fever, chills, sweats, weight loss, fatigue, generalized weakness HEENT: no headache, vision changes, eye discomfort, hearing change, ear discomfort, sinus pain, nasal discharge or congestion, oral lesions, soreness, dental problem NECK: no adenopathy, discomfort, change in ROM CHEST: no shortness of breath, dyspnea on exertion, wheezing, cough, sputum production or chest pain HEART: no chest pain, palpitations, syncope ABDOMEN: no nausea, vomiting, constipation, diarrhea, abdominal pain : no dysuria, urgency, frequency, history of stones, incontinence NEURO: no confusion or alteration in consciousness, slurred speech, seizure, focal weakness EXTREMITIES: no new pain, edema, change in ROM HEME: no new adenopathy, bruises, petechiae PSYCH: no depression, anxiety, agitation OBJECTIVE PHYSICAL EXAMINATION: see below for new or abnormal findings BP 139/49 Pulse 58 Temp (Src) 98.4 (Oral) Resp 18 Ht 5' 7.008" (1.70m) Wt 506 lb 13.4 oz (229.9kg) SpO2 94% BMI 79.36 kg/(m2). GENERAL: well nourished and developed; no acute distress; alert and oriented x 3; intact judgement and insight. HEENT: no evidence of trauma; cranial nerves intact; eyes clear EOMI; no hearing deficits apparent; nasal passages unremarkable; throat and mucous membranes clear NECK: supple without lymphadenopathy; no JVD; no thyromegaly CHEST: clear bilaterally to auscultation; normal chest movement; no rales or rhonchi HEART: regular rate and rhythm, normal S1 and S2, no murmurs, clicks, rubs, or gallops ABDOMEN: soft; nondistended; bowel sounds present; no hepatomegaly; no splenomegaly; no tenderness EXTREMITIES: no evidence of clubbing; no cyanosis; no deformity; no joint effusion; no edema + some erythema anterior distal leg; well demarcated NEURO: cranial nerves intact; no focal deficits; no confusion; no tremor; sensorium normal SKIN: no rash; R heel pressure injury HEME: no bruising; no adenopathy PSYCH: no evidence of depression; no anxiety; no agitation; no apparent hallucinations DATA: CBC: Recent Labs 01/10/18 0415 WBC 5.34 RBC 3.43* HB 10.6* HCT 34.3 PLT 224 MCV 100.0* MCH 30.9 MPV 10.9 RDW 14.8* CMP: No results for input(s): NA, K, CHLOR, CO2, BUN, CREAT, GLUC, TPROT, CA, MG, ALBUMIN, TBILI, ALKPHOS, ALT, AST, ANION in the last 24 hours. Heme: No results for input(s): RETICP, ABSRETIC, LD, GISELE, FE, TIBC, TRANSFERSAT in the last 24 hours. 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, Lumbar Region Type 2 Diabetes Mellitus With Hyperglycemia (Hcc) Wounds, Multiple Paf (Paroxysmal Atrial Fibrillation) (Hcc) Osteoarthritis Hypertension Hyperlipemia Foot Ulcer (Hcc) Tia (Transient Ischemic Attack) Bmi 60.0-69.9, Adult (Hcc) Stroke ([facility]) Patient Noncompliant With Anticoagulant Medication Chronic Pain Cellulitis Morbid Obesity With Bmi of 70 and Over, Adult (Hcc) Diet DIET CARBOHYDRATE CONTROLLED LAST BOWEL MOVEMENT Number of BMs: (last bm 01/02 ) (01/06/18 1900) Prior to Admission Opiate Status Continuous Outpatient Pain Management: Yes. 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 Once results are back our team will notify her pain management physician with any concerns. Continue reduced Oxycodone at 5 mg q4h prn moderate-severe pain; chronic multifactorial pain; opiate dependent x years S/p Narcan x 3 on 01/06, s/p decrease Oxycodone; Baclofen discontinued. Patient at higher risk of opiate induced respiratory depression with morbid obesity; OHS Change Flexeril 5-10 mg po tid prn Disposition pending- recommend SNF; pt has often refused in the past- and requested home Follow-up with [facility] Vidya Strange MD [facility] PROGRESS HNO ID: [id number] Author: Yeison Dockery Service: Hospital Medicine Author Type: Physician Type: Progress Notes Filed: 01/10/2018 1:01 PM Note Text: INPATIENT PROGRESS NOTE CHIEF COMPLAINT: sepsis, AMS INTERVAL HPI: no new complaints. Pt AAOx3. Denies any enw complaints. PHYSICAL EXAM: BP 122/40 Pulse 65 Temp (Src) 98.4 (Oral) Resp 18 Ht 5' 7.008" (1.70m) Wt 506 lb 13.4 oz (229.9kg) SpO2 94% BMI 79.36 kg/(m2). GENERAL: Alert, no distress, cooperative, morbidly obese LUNGS: Lungs clear to auscultation with occasional wheezing CARDIAC: Normal S1 and S2; no rubs, murmurs, or gallops ABDOMEN: Abdomen soft, non-tender, BS normal, No masses or organomegaly. Jose+ EXTREMITIES: no edema, wounds in dressing kaci thighs posteriorly and R leg. R leg wound appears to be improving. Decreased erythema DATA: Diagnostic tests reviewed for today's visit: CBC, Coags, BMP, Mg, Phos Recent Labs 01/10/18 0415 01/09/18 0500 01/08/18 0530 WBC 5.34 5.08 5.46 HB 10.6* 10.2* 10.5* HCT 34.3 33.5* 33.8* PLT 224 239 225 NA -- -- 141 K -- -- 4.3 CHLOR -- -- 107 CO2 -- -- 31 BUN -- -- 7 CREAT -- -- 0.64 GLUC -- -- 132* CA -- -- 8.4* Assessment/Plan #B/L LE cellulitis #Decubitus and LE wounds, diabetic vs pressure. No signs of OM ?-Bariatric dolphin bed, jose in place to due to bladder leakage which will prevent wound healing ?-cefazolin ?-appreicate ID recs. Plan to change to PO duricef at discharge ? #Encephalopathy-resolved thought to be multifactorial- hypoglycemia, opiate use and possibly hypercapnia?. Now resolved #Neurogenic bladder w/ overflow incont ?-jose placed for wound healing?. Will need to be dced prior to discharge #Hypoxia mild- no complaints of hypoxia suspect obesity hypovent/PHOEBE. Wean O2 to RA as able. D/w RN? #Type 2 diabetes mellitus with hyperglycemia ([facility]) ?-cont home insulin reg ? #Hypertension-well controlled at this time ?-cont home meds ? #Morbid obesity BMI 60.0-69.9, adult (HCC)- specialty bed ? #PAF (paroxysmal atrial fibrillation) with recent stroke. Pt needs OAC. With her BMI of 79 will recommend coumadin for OAC but pt refusing. Was on eliquis previously but was not able to afford the medication. SW consulted for medication assistance? #Osteoarthritis #Chronic pain-appreciate pain management folllwing Pt to d/w this afternoon re dispo planning. ? SIGNATURE: Yeison Dockery MD PATIENT NAME: Salazar Coyle DATE: January 10, 2018 TIME: 12:57 PM PAGER: Normal [facility] PROGRESSon 01-09-2018 PROGRESS HNO ID: [id number] Author: Yeison Dockery Service: Hospital Medicine Author Type: Physician Type: Progress Notes Filed: 01/09/2018 6:59 PM Note Text: INPATIENT PROGRESS NOTE CHIEF COMPLAINT: LE cellulitis/encephalopathy INTERVAL HPI: Pt in MICU waiting for bed for tf to floor. She c/o pain in R leg. No documented fevers. MS improved. PHYSICAL EXAM: BP 139/58 Pulse 61 Temp (Src) 97.6 (Axillary) Resp 13 Ht 5' 7" (1.70m) Wt 506 lb 13.4 oz (229.9kg) SpO2 97% BMI 79.36 kg/(m2). GENERAL: Alert, no distress, cooperative, morbidly obese LUNGS: Lungs clear to auscultation anteriorly CARDIAC: Normal S1 and S2; no rubs, murmurs, or gallops ABDOMEN: Abdomen soft, non-tender, BS normal, No masses or organomegaly, jose EXTREMITIES: R leg wound , kaci thigh wounds DATA: Diagnostic tests reviewed for today's visit: CBC, Coags, BMP, Mg, Phos Recent Labs 01/09/18 0500 01/08/18 0530 01/07/18 0340 01/06/18 1910 WBC 5.08 5.46 6.62 6.74 HB 10.2* 10.5* 10.4* 10.3* HCT 33.5* 33.8* 35.3 33.3* PLT 239 225 206 217 NA -- 141 142 141 K -- 4.3 3.8 4.3 CHLOR -- 107 110* 107 CO2 -- 31 28 30 BUN -- 7 8 10 CREAT -- 0.64 0.72 0.76 GLUC -- 132* 158* 148* CA -- 8.4* 7.9* 7.5* MG -- -- -- 2.1 Assessment/Plan #B/L LE cellulitis #Decubitus and LE wounds, diabetic vs pressure. No signs of OM ?-Bariatric dolphin bed, jose in place to due to bladder leakage which will prevent wound healing ?-cefazolin -appreicate ID recs. Plan to change to PO duricef at discharge ? #Encephalopathy-resolved thought to be multifactorial- hypoglycemia, opiate use and possibly hypercapnia?. Now resolved #Neurogenic bladder w/ overflow incont ?-jose placed for wound healing? #Hypoxia mild- no complaints of hypoxia suspect obesity hypovent/PHOEBE. Wean O2 to RA as able ? #Type 2 diabetes mellitus with hyperglycemia ([facility]) ?-cont home insulin reg ? #Hypertension-well controlled at this time ?-cont home meds ? #Morbid obesity BMI 60.0-69.9, adult ([facility])- specialty bed ? #PAF (paroxysmal atrial fibrillation) with recent stroke. Pt needs OAC. With her BMI of 79 will recommend coumadin for OAC but pt refusing. Was on eliquis previously but was not able to afford the medication. SW consulted for medication assistance? #Osteoarthritis #Chronic pain-appreciate pain management Pt is recommended SNF at DC , was noted to be agreeable earlier but now refusing. Wants to go home. She will d/w her . SIGNATURE: Yeison Dockery MD PATIENT NAME: Salazar Coyle DATE: January 09, 2018 TIME: 6:35 PM PAGER: [facility] PROGRESS HNO ID: [id number] Author: Diego Obando Service: Infectious Disease Author Type: Physician Type: Progress Notes Filed: 01/09/2018 12:12 PM Note Text: 12:11 PM Afebrile Xray negative for osteo. A/P: Continue ancef while in hospital, then DC with PO duricef x 10 days. ID sign off. [facility] PROGRESS HNO ID: [id number] Author: Vidya Strange Service: Pain Management Author Type: Physician Type: Progress Notes Filed: 01/09/2018 9:20 AM Note Text: Salazar Coyle [id number] PAIN MANAGEMENT TEAM PAIN DIAGNOSIS: Bilateral lower extremity wounds with pain, morbid obesity, diabetic neuropathy, sciatica, DJD Pain Score/Description: pain "about the same"- b/l leg pain, R hip pain/back. Mental statu back to baseline INTERVAL HPI: 01/08 ID R leg cellulitis likely due to foot ulcer; change to IV ancef; R foot xray pending 01/06 transfer to MICU secondary to confusion?responsiveness. Received 3 doses of Narcan, does not appear in the overall benefit. Also noted to have a profoundly low blood sugar. Also demonstrated with CO2 retention SUBJECTIVE HPI: This is a 67 year old female who presents with bilateral lower extremity wounds, chronic with development of increased pain, and erythema especially involving the right leg. This patient has been followed in wound clinic for extended period of time, and has multiple comorbidities including right-sided weakness following a remote CVA. This patient also maintains that she has not been able to weight-bear on her right side also secondary to chronic wound issues and nonhealing. She has back pain as described above, chronic, low back with radicular component down posterior right leg into her foot. She has not undergone any type of prior radiologic evaluation secondary to her other medical problems and not considered a candidate for surgery. She is , resides with her who assist her with activities of daily living including assistance with wound care. She is nonweightbearing, essentially wheelchair confined, rise to keep her leg elevated as much as possible, home confined, does not have a visiting nurse or home health 8. Review of [place] Automated RX Reporting System shows no concerns, with her recent prescription history as follows: 12/24/2017 1 12/24/2017 OXYCODON-ACETAMINOPHEN 7.5-325 45 15 TN CARROLL [id number] ANDRE([id number]) 0 33.75 [place] 12/10/2017 1 12/10/2017 GABAPENTIN 600 MG TABLET 120 30 TN CARROLL [id number] ANDRE([id number]) 0 [place] 12/10/2017 1 12/10/2017 OXYCODONE HCL 5 MG TABLET 60 15 TN CARROLL [id number] ANDRE([id number]) 0 30.00 [place] 11/09/2017 1 10/10/2017 OXYCODONE HCL 5 MG TABLET 120 30 TN CARROLL [id number] ANDRE([id number]) 0 30.00 [place] 10/10/2017 1 10/10/2017 OXYCODONE HCL 5 MG TABLET 120 30 TN CARROLL [id number] ANDRE([id number]) 0 30.00 [place] 09/07/2017 1 08/31/2017 OXYCODONE HCL 5 MG TABLET 120 30 TN CARROLL [id number] ANDRE([id number]) 0 30.00 [place] 08/31/2017 1 08/31/2017 GABAPENTIN 600 MG TABLET 120 30 TN CARROLL [id number] ANDRE([id number]) 0 [place] 08/15/2017 2 08/05/2017 OXYCODONE HCL 5 MG TABLET 30 7 TH LEH [id number] ABS([id number]) 0 32.14 MME [facility] 08/08/2017 1 07/05/2017 OXYCODONE HCL 5 MG TABLET 120 30 AN KOG [id number] ANDRE([id number]) 0 30.00 [place] 08/06/2017 2 08/05/2017 OXYCODONE HCL 5 MG TABLET 30 7 TH LEH [id number] ABS([id number]) 0 32.14 MME [facility] On 12/24/2017 her opiates were essentially increased to Percocet 7.5/325 with anticipated use of 3 times a day, prior to this was utilizing oxycodone 5 mg approximately 4 times a day. Her last prescription for Percocet 7.5/325 was For #45 pills on 12/24. She is also on gabapentin 600 mg 4 times a day. 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 This change in dose occurred on the day of admission. MEDICATIONS Current Facility-Administered Medications: ceFAZolin iv piggyback 2 g in D5W (iso-osmotic) 100 mL (ANCEF) 2 g INTRAVENOUS q 8 HR Diego Obando Last Rate: 200 mL/hr at 01/09/18522 2 g at 01/09/18522 cyclobenzaprine 10 mg tab(s) (FLEXERIL) 10 mg ORAL TID PRN Len (Res) Dhamija 10 mg at 01/08/182312 oxyCODONE IR 5 mg tab(s) (ROXICODONE) 5 mg ORAL q 4 H PRN Carlos Roberts Preethi 5 mg at 01/08/182017 albuterol 2.5 mg /3 mL (0.083 %) 2.5 mg (PROVENTIL) 2.5 mg INHALATION q 4 H PRN Len (Res) Jolene ipratropium-albuterol 3 mL nebulizer solution (DUONEB) 3 mL INHALATION q 4 H while awake Ki (Res) Pannikottu 3 mL at 01/08/18 193 potassium chloride 80-120 mEq oral liquid 80-120 mEq ORAL/FEEDING TUBE PRN Zachariah (Res) MD Kim potassium chloride iv piggyback 20 mEq in sterile water 100 mL 20 mEq INTRAVENOUS PRN Zachariah (Res) MD Kim magnesium sulfate in water 2 g in sterile water 50 ml 2 g INTRAVENOUS PRN Zachariah (Res) MD Kim sodium phosphate 45 mmol in NaCl 0.9% 250 mL 45 mmol INTRAVENOUS PRN Zachariah (Res) MD Kim calcium gluconate 4 g in NaCl 0.9% 250 mL 4 g INTRAVENOUS PRN Zachariah (Res) MD Kim 0.9% NaCl 3-5 mL 3-5 mL INTRAVENOUS q 12 H Zachariah (Res) MD Kim 5 mL at 01/08/182017 dextrose 40 % 15 g 15 g ORAL PRN Zachariah (Res) MD Kim Or glucagon 1 mg injection (GLUCAGEN) 1 mg INTRAMUSCULAR PRN Zachariah (Res) MD Kim Or dextrose 50% in water 25 mL syringe 12.5 g INTRAVENOUS PRN Zachariah (Res) MD Kim insulin regular human injection (short acting) (NovoLIN R,HumuLIN R) SUBCUTANEOUS q 6 H Zachariah (Res) MD Kim 2 Units at 01/08/18 230 insulin glargine 45 Units pen (long acting) (LANTUS SOLOSTAR, BASAGLAR KWIKPEN) 45 Units SUBCUTANEOUS AT BEDTIME Zachariah (Res) MD Kim 45 Units at 01/08/18 230 acetaminophen 650 mg CUP (TYLENOL) 650 mg ORAL q 4 H PRN Zachariah (Res) MD Kim gabapentin 600 mg cap(s) (NEURONTIN) 600 mg ORAL QID Jesus Galindo DO 600 mg at 01/08/182017 atorvastatin 40 mg tab(s) (LIPITOR) 40 mg ORAL AT BEDTIME Jesus Galindo DO 40 mg at 01/08/182017 losartan 100 mg tab(s) (COZAAR) 100 mg ORAL DAILY Jesus Galindo DO 100 mg at 01/08/18 0924 metoprolol tartrate (short acting) 12.5 mg tab(s) (LOPRESSOR) 12.5 mg ORAL q 12 H Jesus Galindo, DO 12.5 mg at 01/08/182017 amLODIPine 5 mg tab(s) (NORVASC) 5 mg ORAL DAILY Jesus Galindo, DO 5 mg at 01/08/18 0924 apixaban 5 mg tab(s) (ELIQUIS) 5 mg ORAL BID Jesus Robertodeepakmargarita, DO 5 mg at 01/08/182017 bisacodyl 10 mg suppository (DULCOLAX) 10 mg RECTAL DAILY PRN Jesus Robertodeepakmargarita, DO miconazole 2 % 1 application topical powder (LOTRIMIN AF, DESENEX) 1 application TOPICAL BID Jluio C Obando 1 application at 01/08/18 2100 Prescriptions Prior to Admission: aspirin 81 mg chewable tablet Take 81 mg by mouth once daily. Disp: Rfl: oxyCODONE-acetaminophen (PERCOCET) 7.5-325 mg tablet Take 1 tablet by mouth three times daily. Disp: Rfl: amLODIPine (NORVASC) 5 mg tablet Take 1 tablet by mouth once daily. Disp: Rfl: atorvastatin (LIPITOR) 40 mg tablet Take 1 tablet by mouth daily at bedtime. Disp: Rfl: bisacodyl (DULCOLAX) 10 mg supp 1 Suppository by RECTAL route once daily as needed. Disp: Rfl: cyclobenzaprine (FLEXERIL) 10 mg tablet Take 1 tablet by mouth three times daily as needed for Muscle Spasm. Disp: Rfl: insulin lispro (HUMALOG KWIKPEN) 100 unit/mL inpn Inject 22 Units subcutaneously w MEALS. Disp: Rfl: insulin lispro (HUMALOG KWIKPEN) 100 unit/mL pen If Blood Glucose (mg/dL) is: Less than 110= 0 units, 111-150= 0 units, 151-200= 3 units, 201-250= 6 units, 251-300= 9 units, 301-350= 12 units, 351-400= 15 units, Greater than 400= 18 units, Disp: Rfl: metoprolol tartrate, short acting, (LOPRESSOR) 25 mg tablet Take 0.5 tablets by mouth every 12 hours. Disp: Rfl: amitriptyline (ELAVIL) 10 mg tablet Take 20 mg by mouth daily at bedtime. Disp: Rfl: miconazole (MONISTAT-DERM,MAY) 2 % cream Apply 1 application to affected area twice daily. Disp: 90 g Rfl: 1 LANTUS SOLOSTAR 100 unit/mL (3 mL) inpn Inject 65 units subcutaneously at bedtime Disp: 10 Pen Rfl: 6 07/19/2017 at Unknown time NOVOLOG FLEXPEN 100 unit/mL inpn Dose varies units with meals, using about 66 total units a day (Patient taking differently: Inject 22 Units subcutaneously three times daily with meals. ) Disp: 10 Pen Rfl: 6 07/20/2017 at Unknown time gabapentin (NEURONTIN) 600 mg tablet 600 mg four times daily. Disp: Rfl: 07/20/2017 at Unknown time NOVOFINE 30 30 gauge x 1/3" ndle 1 Pen Needle four times daily. Disp: 120 Each Rfl: 2 Unknown at Unknown time lidocaine (LIDODERM) 5 % Apply 3 Patches as directed every 12 hours. Two patches to right hip, 1 patch to left thigh Disp: Rfl: Unknown at Unknown time baclofen (LIORESAL) 20 mg tablet 20 mg three times daily. Disp: Rfl: 07/20/2017 at Unknown time losartan (COZAAR) 100 mg tablet Take 100 mg by mouth once daily. Disp: Rfl: 07/20/2017 at Unknown time PAST MEDICAL HISTORY PAST MEDICAL HISTORY Diagnosis Date - Back pain - Foot ulcer (HCC) - Generalized weakness - Hip pain - Hyperlipemia - Hypertension - Morbid obesity (HCC) - Muscle spasm of back - Osteoarthritis - PAF (paroxysmal atrial fibrillation) (HCC) - Rotator cuff tear - Stroke (HCC) - Type 2 diabetes mellitus with hyperglycemia (HCC) PAST SURGICAL HISTORY PAST SURGICAL HISTORY Procedure Laterality Date - APPENDECTOMY - BLADDER SURGERY HX - TONSILLECTOMY HX - TUBAL LIGATION HX ALLERGIES No Known Allergies FAMILY HISTORY Problem Relation Age of Onset - Heart Mother - Diabetes Mother - Stroke Father - Cancer Other - Osteoporosis Other Social History Substance Use Topics - Smoking status: Never Smoker - Smokeless tobacco: Never Used - Alcohol use No Social History Narrative None on file REVIEW OF SYSTEMS: all of the following reviewed and negative except as noted below: GENERAL: no fever, chills, sweats, weight loss, fatigue, generalized weakness HEENT: no headache, vision changes, eye discomfort, hearing change, ear discomfort, sinus pain, nasal discharge or congestion, oral lesions, soreness, dental problem NECK: no adenopathy, discomfort, change in ROM CHEST: no shortness of breath, dyspnea on exertion, wheezing, cough, sputum production or chest pain HEART: no chest pain, palpitations, syncope ABDOMEN: no nausea, vomiting, constipation, diarrhea, abdominal pain : no dysuria, urgency, frequency, history of stones, incontinence NEURO: no confusion or alteration in consciousness, slurred speech, seizure, focal weakness EXTREMITIES: no new pain, edema, change in ROM HEME: no new adenopathy, bruises, petechiae PSYCH: no depression, anxiety, agitation OBJECTIVE PHYSICAL EXAMINATION: see below for new or abnormal findings BP 129/56 Pulse 54 Temp (Src) 97.7 (Axillary) Resp 12 Ht 5' 7" (1.70m) Wt 506 lb 13.4 oz (229.9kg) SpO2 96% BMI 79.36 kg/(m2). GENERAL: well nourished and developed; no acute distress; alert and oriented x 3; intact judgement and insight. HEENT: no evidence of trauma; cranial nerves intact; eyes clear EOMI; no hearing deficits apparent; nasal passages unremarkable; throat and mucous membranes clear NECK: supple without lymphadenopathy; no JVD; no thyromegaly CHEST: clear bilaterally to auscultation; normal chest movement; no rales or rhonchi HEART: regular rate and rhythm, normal S1 and S2, no murmurs, clicks, rubs, or gallops ABDOMEN: soft; nondistended; bowel sounds present; no hepatomegaly; no splenomegaly; no tenderness EXTREMITIES: no evidence of clubbing; no cyanosis; no deformity; no joint effusion; no edema + some erythema anterior distal leg; well demarcated NEURO: cranial nerves intact; no focal deficits; no confusion; no tremor; sensorium normal SKIN: no rash; R heel pressure injury HEME: no bruising; no adenopathy PSYCH: no evidence of depression; no anxiety; no agitation; no apparent hallucinations DATA: CBC: Recent Labs 01/09/18 0500 WBC 5.08 RBC 3.29* HB 10.2* HCT 33.5* PLT 239 MCV 101.8* MCH 31.0 MPV 11.2 RDW 15.0* CMP: No results for input(s): NA, K, CHLOR, CO2, BUN, CREAT, GLUC, TPROT, CA, MG, ALBUMIN, TBILI, ALKPHOS, ALT, AST, ANION in the last 24 hours. Heme: No results for input(s): RETICP, ABSRETIC, LD, GISELE, FE, TIBC, TRANSFERSAT in the last 24 hours. 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, Lumbar Region Type 2 Diabetes Mellitus With Hyperglycemia (Hcc) Wounds, Multiple Paf (Paroxysmal Atrial Fibrillation) (Hcc) Osteoarthritis Hypertension Hyperlipemia Foot Ulcer (Hcc) Tia (Transient Ischemic Attack) Bmi 60.0-69.9, Adult (Hcc) Stroke (Hcc) Patient Noncompliant With Anticoagulant Medication Chronic Pain Cellulitis Morbid Obesity With Bmi of 70 and Over, Adult ([facility]) Diet DIET CARBOHYDRATE CONTROLLED LAST BOWEL MOVEMENT Number of BMs: (last bm 01/02 ) (01/06/18 1900) Prior to Admission Opiate Status Continuous Outpatient Pain Management: Yes. 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 Once results are back our team will notify her pain management physician with any concerns. Continue reduced Oxycodone at 5 mg q4h prn moderate-severe pain; chronic multifactorial pain; opiate dependent x years S/p Narcan x 3 on 01/06, s/p decrease Oxycodone; Baclofen discontinued. Patient at higher risk of opiate induced respiratory depression with morbid obesity; OHS Change Flexeril 5-10 mg po tid prn Pt agreeable for postacute/SNF at discharge- she had been very hesitant for SNF during prior hospitalizations Follow-up with [facility] Vidya Strange MD [facility] CASE MANAGEMon 01-08-2018 CASE MANAGEM HNO ID: [id number] Author: Felecia (Rn) MATHEUS Cope Service: Care Management Author Type: Registered Nurse Type: Care Mgt Progress Note Filed: 01/08/2018 3:24 PM Note Text: CARE MANAGEMENT PROGRESS NOTE SERVICE DATE: 01/08/2018 SERVICE TIME: 3:23 PM LOS: 3 days Met with pt's in [facility]. Would like referral for Kat garcia for rehab. SIGNATURE: Felecia Cope RN PATIENT NAME: Salazar Coyle DATE: January 08, 2018 TIME: 3:23 PM PAGER/CONTACT #: [phone] [facility] PROGRESSon 01-08-2018 PROGRESS HNO ID: [id number] Author: Jesus Galindo DO Service: Hospital Medicine Author Type: Physician Type: Progress Notes Filed: 01/08/2018 6:46 PM Note Text: DEPARTMENT OF HOSPITAL MEDICINE PROGRESS NOTE SERVICE DATE: 01/08/2018 SERVICE TIME: 6:38 PM Hospital Medicine/Primary Attending: Jesus Galindo DO NIGHT AND WEEKEND COVERAGE: After 7pm please page [phone] SUBJECTIVE: Patient seen and examined at bedside. No new complaints/concerns reported. No events over night. No recollection of events when she was encephalopathic several days ago. OBJECTIVE: PHYSICAL EXAM: BP 115/49 Pulse 61 Temp (Src) 97.7 (Axillary) Resp 13 Ht 5' 7" (1.70m) Wt 505 lb 4.7 oz (229.2kg) SpO2 99% BMI 79.12 kg/(m2). General - AANDOx3, NAD, Calm, morbidly obese ENT- no icterus, MMM CV - RRR S1 S2, No M/R/G RESP - CTA B/L No wheezes, ronchi, rales ABD - soft, NT, ND, NM +BS Neuro- Conversant, follows commands, moves all ext, gross sensation intact No dysarthria Ext:Non-tender, no edema, wounds on b/l upper thighs dorsal side and medial. B/L shins worse on R side. Skin: see ext. Psych: appropriate mood and affect MEDICATIONS: Current hospital medications: ceFAZolin iv piggyback 2 g in D5W (iso-osmotic) 100 mL (ANCEF) 2 g INTRAVENOUS q 8 HR cyclobenzaprine 10 mg tab(s) (FLEXERIL) 10 mg ORAL TID PRN oxyCODONE IR 5 mg tab(s) (ROXICODONE) 5 mg ORAL q 4 H PRN albuterol 2.5 mg /3 mL (0.083 %) 2.5 mg (PROVENTIL) 2.5 mg INHALATION q 4 H PRN ipratropium-albuterol 3 mL nebulizer solution (DUONEB) 3 mL INHALATION q 4 H while awake potassium chloride 80-120 mEq oral liquid 80-120 mEq ORAL/FEEDING TUBE PRN potassium chloride iv piggyback 20 mEq in sterile water 100 mL 20 mEq INTRAVENOUS PRN magnesium sulfate in water 2 g in sterile water 50 ml 2 g INTRAVENOUS PRN sodium phosphate 45 mmol in NaCl 0.9% 250 mL 45 mmol INTRAVENOUS PRN calcium gluconate 4 g in NaCl 0.9% 250 mL 4 g INTRAVENOUS PRN 0.9% NaCl 3-5 mL 3-5 mL INTRAVENOUS q 12 H dextrose 40 % 15 g 15 g ORAL PRN glucagon 1 mg injection (GLUCAGEN) 1 mg INTRAMUSCULAR PRN dextrose 50% in water 25 mL syringe 12.5 g INTRAVENOUS PRN insulin regular human injection (short acting) (NovoLIN R,HumuLIN R) SUBCUTANEOUS q 6 H insulin glargine 45 Units pen (long acting) (LANTUS SOLOSTAR, BASAGLAR KWIKPEN) 45 Units SUBCUTANEOUS AT BEDTIME acetaminophen 650 mg CUP (TYLENOL) 650 mg ORAL q 4 H PRN gabapentin 600 mg cap(s) (NEURONTIN) 600 mg ORAL QID atorvastatin 40 mg tab(s) (LIPITOR) 40 mg ORAL AT BEDTIME losartan 100 mg tab(s) (COZAAR) 100 mg ORAL DAILY metoprolol tartrate (short acting) 12.5 mg tab(s) (LOPRESSOR) 12.5 mg ORAL q 12 H amLODIPine 5 mg tab(s) (NORVASC) 5 mg ORAL DAILY apixaban 5 mg tab(s) (ELIQUIS) 5 mg ORAL BID bisacodyl 10 mg suppository (DULCOLAX) 10 mg RECTAL DAILY PRN miconazole 2 % 1 application topical powder (LOTRIMIN AF, DESENEX) 1 application TOPICAL BID DATA: Diagnostic tests reviewed for today's visit: CBC: Recent Labs 01/08/18 0530 WBC 5.46 RBC 3.36* HB 10.5* HCT 33.8* PLT 225 MCV 100.6* MCH 31.3 MPV 11.0 RDW 15.3* Coags: No results for input(s): INR, APTT in the last 24 hours. Invalid input(s): PT BMP: Recent Labs 01/08/18 0530 NA 141 K 4.3 CHLOR 107 CO2 31 BUN 7 CREAT 0.64 GLUC 132* CMP: Recent Labs 01/08/18 0530 NA 141 K 4.3 CHLOR 107 CO2 31 BUN 7 CREAT 0.64 GLUC 132* CA 8.4* ANION 7* Cardiac Enzymes: No results for input(s): CK, MB, CKMB, TROPT in the last 24 hours. Liver Function, Amylase, Lipase: No results for input(s): TPROT, ALB, ALT, AST, ALKPHOS, TBILI, AMYLASE, LIPASE, LACTATE in the last 24 hours. MG/PHOS: No results for input(s): MG, P in the last 24 hours. Renal Panel: Recent Labs 01/08/18 0530 CREAT 0.64 BUN 7 GLUC 132* CA 8.4* CHLOR 107 K 4.3 CO2 31 NA 141 Heme: No results for input(s): RETICP, ABSRETIC, LD, GISELE, FE, TIBC, TRANSFERSAT in the last 24 hours. No results found for: UALBCR Assessment/Plan This is a 67yo F w/ ? #B/L LE cellulitis #Decubitus and LE wounds, diabetic vs pressure ?-Bariatric dolphin bed, jose in place to due to bladder leakage which will prevent wound healing ?-cefazolin -appreicate ID recs ? #Encephalopathy-resolved thought to be due to pain meds, reveieved multiple doses of narcan #Neurogenic bladder w/ overflow incont -Will attempt female ext catheter-per ICU note -Jose placed by urology w/ plan to d/c w/ catheter to assist w/ wound healing ? #Hypoxia mild- no complaints of hypoxia suspect obesity hypovent/PHOEBE ? #Type 2 diabetes mellitus with hyperglycemia (HCC) ?-cont home insulin reg ? #Hypertension-well controlled at this time ?-cont home meds ? #Morbid obesity BMI 60.0-69.9, adult ([facility])- specialty bed ? #PAF (paroxysmal atrial fibrillation) ([facility])-monitor on tele #Hx of recent CVA Stroke ([facility])- cont statin and Eliquis, social work consulted to assist with getting med. Dr. Sharma saw earlier this year in July and Eliquis was patient's final choice although it has proven to be expensive. Coumadin will be difficult for her to monitor at home. ? #Patient noncompliant with anticoagulant medication in the past due to cost- may consider switch to coumadin? Will be difficult for patient due to debility. ? #Osteoarthritis #Chronic pain-consult pain management, cont home meds ? VTE Prophylaxis:?VTE prophylaxis appropriate Disposition:?TBD suspect will need SNF Plan of care discussed with:?Patient SIGNATURE: Jesus Galindo DO PATIENT NAME: Salazar Coyle DATE: January 08, 2018 TIME: 6:38 PM PAGER/CONTACT #: My Pager Normal [facility] PROGRESS HNO ID: [id number] Author: Diego Obando Service: Infectious Disease Author Type: Physician Type: Progress Notes Filed: 01/08/2018 11:43 AM Note Text: INFECTIOUS DISEASE CONSULT PROGRESS NOTE SERVICE DATE: 01/08/2018 SERVICE TIME: 11:36 AM Subjective INTERVAL HISTORY: Awake, c/o pain in R heel. PT at bedside. PERTINENT ROS: Denies fever or chills. Current Facility-Administered Medications: oxyCODONE IR 5 mg tab(s) (ROXICODONE) 5 mg ORAL q 4 H PRN albuterol 2.5 mg /3 mL (0.083 %) 2.5 mg (PROVENTIL) 2.5 mg INHALATION q 4 H PRN vancomycin 1.5 g in D5W 250 mL (VANCOCIN) 1.5 g INTRAVENOUS q 12 HR ipratropium-albuterol 3 mL nebulizer solution (DUONEB) 3 mL INHALATION q 4 H while awake potassium chloride 80-120 mEq oral liquid 80-120 mEq ORAL/FEEDING TUBE PRN potassium chloride iv piggyback 20 mEq in sterile water 100 mL 20 mEq INTRAVENOUS PRN magnesium sulfate in water 2 g in sterile water 50 ml 2 g INTRAVENOUS PRN sodium phosphate 45 mmol in NaCl 0.9% 250 mL 45 mmol INTRAVENOUS PRN calcium gluconate 4 g in NaCl 0.9% 250 mL 4 g INTRAVENOUS PRN 0.9% NaCl 3-5 mL 3-5 mL INTRAVENOUS q 12 H dextrose 40 % 15 g 15 g ORAL PRN Or glucagon 1 mg injection (GLUCAGEN) 1 mg INTRAMUSCULAR PRN Or dextrose 50% in water 25 mL syringe 12.5 g INTRAVENOUS PRN insulin regular human injection (short acting) (NovoLIN R,HumuLIN R) SUBCUTANEOUS q 6 H insulin glargine 45 Units pen (long acting) (LANTUS SOLOSTAR, BASAGLAR KWIKPEN) 45 Units SUBCUTANEOUS AT BEDTIME acetaminophen 650 mg CUP (TYLENOL) 650 mg ORAL q 4 H PRN gabapentin 600 mg cap(s) (NEURONTIN) 600 mg ORAL QID atorvastatin 40 mg tab(s) (LIPITOR) 40 mg ORAL AT BEDTIME losartan 100 mg tab(s) (COZAAR) 100 mg ORAL DAILY metoprolol tartrate (short acting) 12.5 mg tab(s) (LOPRESSOR) 12.5 mg ORAL q 12 H amLODIPine 5 mg tab(s) (NORVASC) 5 mg ORAL DAILY apixaban 5 mg tab(s) (ELIQUIS) 5 mg ORAL BID bisacodyl 10 mg suppository (DULCOLAX) 10 mg RECTAL DAILY PRN miconazole 2 % 1 application topical powder (LOTRIMIN AF, DESENEX) 1 application TOPICAL BID Objective PHYSICAL EXAM: Vital Signs: BP 143/74 Pulse (!) 57 Temp 36.5 ?C (97.7 ?F) Resp 10 Ht 170.2 cm (5' 7") Wt (!) 229.2 kg (505 lb 4.7 oz) SpO2 96% BMI 79.14 kg/m? Tmax 37.1 HEENT moist mouth Lungs CTA anteriorly Heart S1 S2 Abdomen obese, soft, NT Extremities heel protectors on LEs, erythema over RLE looks slightly better DATA: Diagnostic Tests Reviewed for Today's Visit: MRSA screen 01/05 negative, 01/04 BC no growth, creatinine 0.6, WBC 5.4 Impression/Recommendations Active Problems: Cellulitis POA: Yes Assessment AND Plan: Of R leg. MRSA screen negative. Suspect source is R foot ulcer. Change to IV ancef, can convert to PO duricef when ready for DC x 10 days if no osteo. Check xray of R foot for osteomyelitis. Foot doesn't look grossly infected to me so not treating like diabetic foot infection eg. vanco and zosyn. Morbid obesity with BMI of 70 and over, adult (HCC) POA: Yes Assessment AND Plan: Complicates management, needs weight loss which I told her. Role for gastric bypass? CCT > 30 minutes SIGNATURE: Diego Obando MD, MS, FACP, [facility] PATIENT NAME: Salazar Coyle DATE: January 08, 2018 TIME: 11:35 AM PAGER/CONTACT #: [phone] [facility] PROGRESS HNO ID: [id number] Author: Vidya Strange Service: Pain Management Author Type: Physician Type: Progress Notes Filed: 01/08/2018 10:29 AM Note Text: Salazar Coyle [id number] PAIN MANAGEMENT TEAM PAIN DIAGNOSIS: Bilateral lower extremity wounds with pain, morbid obesity, diabetic neuropathy, sciatica, DJD Pain Score/Description: c/o pain R hip and low back- constant ache INTERVAL HPI: 01/06 transfer to MICU secondary to confusion?responsiveness. Received 3 doses of Narcan, does not appear in the overall benefit. Also noted to have a profoundly low blood sugar. Also demonstrated with CO2 retention SUBJECTIVE HPI: This is a 67 year old female who presents with bilateral lower extremity wounds, chronic with development of increased pain, and erythema especially involving the right leg. This patient has been followed in wound clinic for extended period of time, and has multiple comorbidities including right-sided weakness following a remote CVA. This patient also maintains that she has not been able to weight-bear on her right side also secondary to chronic wound issues and nonhealing. She has back pain as described above, chronic, low back with radicular component down posterior right leg into her foot. She has not undergone any type of prior radiologic evaluation secondary to her other medical problems and not considered a candidate for surgery. She is , resides with her who assist her with activities of daily living including assistance with wound care. She is nonweightbearing, essentially wheelchair confined, rise to keep her leg elevated as much as possible, home confined, does not have a visiting nurse or home health 8. Review of [place] Automated RX Reporting System shows no concerns, with her recent prescription history as follows: 12/24/2017 1 12/24/2017 OXYCODON-ACETAMINOPHEN 7.5-325 45 15 [place] [id number] ANDRE([id number]) 0 33.75 MME [place] 12/10/2017 1 12/10/2017 GABAPENTIN 600 MG TABLET 120 30 [place] [id number] ANDRE([id number]) 0 [place] 12/10/2017 1 12/10/2017 OXYCODONE HCL 5 MG TABLET 60 15 [place] [id number] ANDRE([id number]) 0 30.00 [place] 11/09/2017 1 10/10/2017 OXYCODONE HCL 5 MG TABLET 120 30 TN [place] [id number] ANDRE([id number]) 0 30.00 [place] 10/10/2017 1 10/10/2017 OXYCODONE HCL 5 MG TABLET 120 30 TN [place] [id number] ANDRE([id number]) 0 30.00 [place] 09/07/2017 1 08/31/2017 OXYCODONE HCL 5 MG TABLET 120 30 TN [place] [id number] ANDRE([id number]) 0 30.00 [place] 08/31/2017 1 08/31/2017 GABAPENTIN 600 MG TABLET 120 30 TN [place] [id number] ANDRE([id number]) 0 [place] 08/15/2017 2 08/05/2017 OXYCODONE HCL 5 MG TABLET 30 7 TH LEH [id number] ABS([id number]) 0 32.14 MME [place] 08/08/2017 1 07/05/2017 OXYCODONE HCL 5 MG TABLET 120 30 AN KOG [id number] ANDRE([id number]) 0 30.00 [place] 08/06/2017 2 08/05/2017 OXYCODONE HCL 5 MG TABLET 30 7 TH [facility] [id number] ABS([id number]) 0 32.14 MME [place] On 12/24/2017 her opiates were essentially increased to Percocet 7.5/325 with anticipated use of 3 times a day, prior to this was utilizing oxycodone 5 mg approximately 4 times a day. Her last prescription for Percocet 7.5/325 was For #45 pills on 12/24. She is also on gabapentin 600 mg 4 times a day. 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 This change in dose occurred on the day of admission. MEDICATIONS Current Facility-Administered Medications: oxyCODONE IR 5 mg tab(s) (ROXICODONE) 5 mg ORAL q 4 H PRN Carlos Roberts Preethi 5 mg at 01/07/18 214 albuterol 2.5 mg /3 mL (0.083 %) 2.5 mg (PROVENTIL) 2.5 mg INHALATION q 4 H PRN Yashu (Res) Jolene vancomycin 1.5 g in D5W 250 mL (VANCOCIN) 1.5 g INTRAVENOUS q 12 HR Julio C Obando Last Rate: 125 mL/hr at 01/08/18 0210 1.5 g at 01/08/18 0210 ipratropium-albuterol 3 mL nebulizer solution (DUONEB) 3 mL INHALATION q 4 H while awake Ki (Res) Pannikottu 3 mL at 01/07/18 1922 potassium chloride 80-120 mEq oral liquid 80-120 mEq ORAL/FEEDING TUBE PRN Zachariah (Res) MD Kim potassium chloride iv piggyback 20 mEq in sterile water 100 mL 20 mEq INTRAVENOUS PRN Zachariah (Res) MD Kim magnesium sulfate in water 2 g in sterile water 50 ml 2 g INTRAVENOUS PRN Zachariah (Res) MD Kim sodium phosphate 45 mmol in NaCl 0.9% 250 mL 45 mmol INTRAVENOUS PRN Zachariah (Res) MD Kim calcium gluconate 4 g in NaCl 0.9% 250 mL 4 g INTRAVENOUS PRN Zachariah (Res) MD Kim 0.9% NaCl 3-5 mL 3-5 mL INTRAVENOUS q 12 H Zachariah (Res) MD Kim 5 mL at 01/07/182105 dextrose 40 % 15 g 15 g ORAL PRN Zachariah (Res) MD Kim Or glucagon 1 mg injection (GLUCAGEN) 1 mg INTRAMUSCULAR PRN Zachariah (Res) MD Kim Or dextrose 50% in water 25 mL syringe 12.5 g INTRAVENOUS PRN Zachariah (Res) MD Kim insulin regular human injection (short acting) (NovoLIN R,HumuLIN R) SUBCUTANEOUS q 6 H Zachariah (Res) MD Kim 2 Units at 01/07/182327 insulin glargine 45 Units pen (long acting) (LANTUS SOLOSTAR, BASAGLAR KWIKPEN) 45 Units SUBCUTANEOUS AT BEDTIME Zachariah (Res) MD Kim 45 Units at 01/07/182327 acetaminophen 650 mg CUP (TYLENOL) 650 mg ORAL q 4 H PRN Zachariah (Res) MD Kim gabapentin 600 mg cap(s) (NEURONTIN) 600 mg ORAL QID Jesus Galindo, DO 600 mg at 01/07/182105 atorvastatin 40 mg tab(s) (LIPITOR) 40 mg ORAL AT BEDTIME Jesus Galindo, DO 40 mg at 01/07/182105 losartan 100 mg tab(s) (COZAAR) 100 mg ORAL DAILY Jesus Galindo, DO 100 mg at 01/07/18922 metoprolol tartrate (short acting) 12.5 mg tab(s) (LOPRESSOR) 12.5 mg ORAL q 12 H Jesus Galindo, DO 12.5 mg at 01/07/182105 amLODIPine 5 mg tab(s) (NORVASC) 5 mg ORAL DAILY Jesus Galindo, DO 5 mg at 01/07/18922 apixaban 5 mg tab(s) (ELIQUIS) 5 mg ORAL BID Jesus Galindo, DO 5 mg at 01/07/182105 bisacodyl 10 mg suppository (DULCOLAX) 10 mg RECTAL DAILY PRN Jeuss Galindo, DO miconazole 2 % 1 application topical powder (LOTRIMIN AF, DESENEX) 1 application TOPICAL BID Usama Obando 1 application at 10/08/18 2100 Prescriptions Prior to Admission: aspirin 81 mg chewable tablet Take 81 mg by mouth once daily. Disp: Rfl: oxyCODONE-acetaminophen (PERCOCET) 7.5-325 mg tablet Take 1 tablet by mouth three times daily. Disp: Rfl: amLODIPine (NORVASC) 5 mg tablet Take 1 tablet by mouth once daily. Disp: Rfl: atorvastatin (LIPITOR) 40 mg tablet Take 1 tablet by mouth daily at bedtime. Disp: Rfl: bisacodyl (DULCOLAX) 10 mg supp 1 Suppository by RECTAL route once daily as needed. Disp: Rfl: cyclobenzaprine (FLEXERIL) 10 mg tablet Take 1 tablet by mouth three times daily as needed for Muscle Spasm. Disp: Rfl: insulin lispro (HUMALOG KWIKPEN) 100 unit/mL inpn Inject 22 Units subcutaneously w MEALS. Disp: Rfl: insulin lispro (HUMALOG KWIKPEN) 100 unit/mL pen If Blood Glucose (mg/dL) is: Less than 110= 0 units, 111-150= 0 units, 151-200= 3 units, 201-250= 6 units, 251-300= 9 units, 301-350= 12 units, 351-400= 15 units, Greater than 400= 18 units, Disp: Rfl: metoprolol tartrate, short acting, (LOPRESSOR) 25 mg tablet Take 0.5 tablets by mouth every 12 hours. Disp: Rfl: amitriptyline (ELAVIL) 10 mg tablet Take 20 mg by mouth daily at bedtime. Disp: Rfl: miconazole (MONISTAT-DERM,MAY) 2 % cream Apply 1 application to affected area twice daily. Disp: 90 g Rfl: 1 LANTUS SOLOSTAR 100 unit/mL (3 mL) inpn Inject 65 units subcutaneously at bedtime Disp: 10 Pen Rfl: 6 07/19/2017 at Unknown time NOVOLOG FLEXPEN 100 unit/mL inpn Dose varies units with meals, using about 66 total units a day (Patient taking differently: Inject 22 Units subcutaneously three times daily with meals. ) Disp: 10 Pen Rfl: 6 07/20/2017 at Unknown time gabapentin (NEURONTIN) 600 mg tablet 600 mg four times daily. Disp: Rfl: 07/20/2017 at Unknown time NOVOFINE 30 30 gauge x 1/3" ndle 1 Pen Needle four times daily. Disp: 120 Each Rfl: 2 Unknown at Unknown time lidocaine (LIDODERM) 5 % Apply 3 Patches as directed every 12 hours. Two patches to right hip, 1 patch to left thigh Disp: Rfl: Unknown at Unknown time baclofen (LIORESAL) 20 mg tablet 20 mg three times daily. Disp: Rfl: 07/20/2017 at Unknown time losartan (COZAAR) 100 mg tablet Take 100 mg by mouth once daily. Disp: Rfl: 07/20/2017 at Unknown time PAST MEDICAL HISTORY PAST MEDICAL HISTORY Diagnosis Date - Back pain - Foot ulcer (HCC) - Generalized weakness - Hip pain - Hyperlipemia - Hypertension - Morbid obesity (HCC) - Muscle spasm of back - Osteoarthritis - PAF (paroxysmal atrial fibrillation) (HCC) - Rotator cuff tear - Stroke (HCC) - Type 2 diabetes mellitus with hyperglycemia (HCC) PAST SURGICAL HISTORY PAST SURGICAL HISTORY Procedure Laterality Date - APPENDECTOMY - BLADDER SURGERY HX - TONSILLECTOMY HX - TUBAL LIGATION HX ALLERGIES No Known Allergies FAMILY HISTORY Problem Relation Age of Onset - Heart Mother - Diabetes Mother - Stroke Father - Cancer Other - Osteoporosis Other Social History Substance Use Topics - Smoking status: Never Smoker - Smokeless tobacco: Never Used - Alcohol use No Social History Narrative None on file REVIEW OF SYSTEMS: all of the following reviewed and negative except as noted below: GENERAL: no fever, chills, sweats, weight loss, fatigue, generalized weakness HEENT: no headache, vision changes, eye discomfort, hearing change, ear discomfort, sinus pain, nasal discharge or congestion, oral lesions, soreness, dental problem NECK: no adenopathy, discomfort, change in ROM CHEST: no shortness of breath, dyspnea on exertion, wheezing, cough, sputum production or chest pain HEART: no chest pain, palpitations, syncope ABDOMEN: no nausea, vomiting, constipation, diarrhea, abdominal pain : no dysuria, urgency, frequency, history of stones, incontinence NEURO: no confusion or alteration in consciousness, slurred speech, seizure, focal weakness EXTREMITIES: no new pain, edema, change in ROM HEME: no new adenopathy, bruises, petechiae PSYCH: no depression, anxiety, agitation OBJECTIVE PHYSICAL EXAMINATION: see below for new or abnormal findings BP 114/50 Pulse 59 Temp (Src) 97.9 (Axillary) Resp 13 Ht 5' 7" (1.70m) Wt 505 lb 4.7 oz (229.2kg) SpO2 100% BMI 79.12 kg/(m2). GENERAL: well nourished and developed; no acute distress; alert and oriented x 3; intact judgement and insight. HEENT: no evidence of trauma; cranial nerves intact; eyes clear EOMI; no hearing deficits apparent; nasal passages unremarkable; throat and mucous membranes clear NECK: supple without lymphadenopathy; no JVD; no thyromegaly CHEST: clear bilaterally to auscultation; normal chest movement; no rales or rhonchi HEART: regular rate and rhythm, normal S1 and S2, no murmurs, clicks, rubs, or gallops ABDOMEN: soft; nondistended; bowel sounds present; no hepatomegaly; no splenomegaly; no tenderness EXTREMITIES: no evidence of clubbing; no cyanosis; no deformity; no joint effusion; no edema + some erythema anterior distal leg; well demarcated NEURO: cranial nerves intact; no focal deficits; no confusion; no tremor; sensorium normal SKIN: no rash; no skin breakdown; no decubitus lesions HEME: no bruising; no adenopathy PSYCH: no evidence of depression; no anxiety; no agitation; no apparent hallucinations DATA: CBC: No results for input(s): WBC, RBC, HB, HCT, PLT, MCV, MCH, MPV, RDW in the last 24 hours. CMP: No results for input(s): NA, K, CHLOR, CO2, BUN, CREAT, GLUC, TPROT, CA, MG, ALBUMIN, TBILI, ALKPHOS, ALT, AST, ANION in the last 24 hours. Heme: No results for input(s): RETICP, ABSRETIC, LD, GISELE, FE, TIBC, TRANSFERSAT in the last 24 hours. 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 [facility] Rx at D/C: Yes Rx on chart: No OARRS: 12/24/17 Percocet 7.5/325 #45/[address] Jasso 12/10/17 Oxyir 5mg #60/[address] Jasso 12/10/17 Neurontin 600mg #120/[address] Jasso Pain Regimen/Notes (Opiate use last 24 hrs): Neurontin 600mg qid x 3 Oxycodone 5mg po q4h prn x 2 dose S/p Narcan 0.4mg IV x 2, 0.8mg IV x 1 on 01/06 PLAN: Urine tox screen-negative opiates (concerning since prescribed Percocet AIRWAYS OPERATIONS SPECIALIST), waiting for confirmation test in the event this is a false negative-confirmation test takes 3-5 days to get results back. Once results are back our team will notify her pain management physician with any concerns. Continue reduced Oxycodone at 5 mg q4h prn moderate-severe pain; chronic multifactorial pain; opiate dependent x years Will NOT require a prescription for discharge as she has one available for Percocet 7.5/325 with use up to 4 times a day to be filled post discharge. Pt reports she had called her physician after he gave her the Percocet 7.5/325 #90 because she felt 3/day was not enough. S/p Narcan x 3 on 01/06, s/p decrease Oxycodone; Baclofen discontinued Patient at higher risk of opiate induced respiratory depression with morbid obesity; [facility] Follow-up with [facility] Vidya Strange MD [facility] THERAPY NTon 01-08-2018 THERAPY NT HNO ID: [id number] Author: Catarino (PtJulio Zapata Service: Physical Therapy Author Type: Physical Therapist Type: Therapy (PT/OT/Speech/Resp) Filed: 01/08/2018 3:43 PM Note Text: Physical Therapy Evaluation SERVICE DATE: 01/08/2018 SERVICE TIME: 1450 to 1513 ROOM: [place] [address] Recommended Discharge Disposition: Subacute/SNF Justification For Post Acute Needs: Anticipate that patient will require daily (5x/wk) skilled therapy in a post-acute facility setting at the time of acute hospital discharge;Willing to participate;Motivated PT Recommendations to Nursing: Sit at edge of bed PT 6 Clicks Score: 9 Precautions/Activity Restrictions: Fall Risk ASSESSMENT : Pt main limitation today is the pain in her R LE. Pt will benefit from SNF at the time of medical d.c. Patient presents with personal factors, comorbidities and results of the PT examination that require moderate complexity decision making. The patient requires skilled physical therapy to address multiple PT problems in order for the patient to return to a baseline functional level. . Requires skilled PT for functional mobility and strengthening. Patient Disposition at Start of Session: Supine in Bed;Call Osborne in Reach;Family Present Patient Disposition at End of Session: Supine in Bed;Call Osborne in Reach;Family Present Tolerance Limited By Pain Physical Therapy Problem List: Pain;Impaired Self Care;Decreased Activity Tolerance;Decreased Range Of Motion;Decreased Strength;Functional Mobility Impairment Patient /Caregiver Goals: Go To Rehab Goals for Plan of Care: Able to perform HEP with: Minimal Assistance Rolling with: Minimal Assistance Transfer supine to/from sit with: Moderate Assistance Goal: able to scoot L and R in bed simulating slide transfer with min asist Rehab Potential: Good PLAN: Treatment Frequency (times per week): 5 (2-5) Current admission Treatment Interventions: Education;Joint Mobility;Strengthening;Fun ctional Mobility Training Plan of Care developed with: Patient TREATMENT INTERVENTIONS: Therapy Diagnosis: Reduced mobility-other;Muscle Weakness (generalized);Abnormalitie s of gait and mobility-other;General symptoms and signs-other Interventions Provided: Evaluation;Therapeutic Exercise (07851) $ Evaluation-Moderate (82649) Billed Units: 1 unit Therapeutic Exercise (63216) Treatment Minutes: 8 1 unit Skilled Intervention(s): Instruction in therapeutic exercise 10 reps of ROM and strengthening exs to L LE and gentle exs to the R (AP qs,gs.) Verbal and tactile cuing provided at the min assist level Facilitation of muscle control, optimal recruitment and alignment . Total Timed Code Treatment Minutes: 8 Total Treatment Time (minutes): 23 FUNCTIONAL G CODE: PT 6 Clicks Score: 9 (01/08/181449) Mobility: Walking and Moving Around Current Status (G8978): CM (01/08/181449) Mobility: Walking and Moving Around Goal Status (G8979): CL (01/08/181449) Based on clinical assessment and the score on the 6 Clicks Functional Assessment Tool, the G code and corresponding severity modifiers are documented above. SUBJECTIVE: Current Hospital Course: Chart reviewed; . Leg wounds Active Hospital Problems Diagnosis - Morbid obesity with BMI of 70 and over, adult (HCC) - Cellulitis PAST MEDICAL HISTORY Diagnosis Date - Back pain - Foot ulcer ([facility]) - Generalized weakness - Hip pain - Hyperlipemia - Hypertension - Morbid obesity ([facility]) - Muscle spasm of back - Osteoarthritis - PAF (paroxysmal atrial fibrillation) ([facility]) - Rotator cuff tear - Stroke ([facility]) - Type 2 diabetes mellitus with hyperglycemia ([facility]) PAST SURGICAL HISTORY Procedure Laterality Date - APPENDECTOMY - BLADDER SURGERY HX - TONSILLECTOMY HX - TUBAL LIGATION HX Reason for Physical Therapy Consult : GEOMATICS PROFESSOR Relevant Past Medical History: morbid obesity cellulitis Patient Report: Pt willing to participate. Home Environment Patient Lives With: Significant Other () Assistance Available: 24 Hour Entry To Home: No Stairs Tub/Shower Type: sponge bathes Equipment Owned: Commode-Raised (hospital bed,electric scooter) Prior Functional Level: Required Assistance Assistance Required With: Transfers;Ambulation;Clean ing;Laundry;Meals;Medicati on Management;Safety;Self Care;Shopping;Transportati on;Wheelchair Mobility (sit/dangle EOB AIRWAYS OPERATIONS SPECIALIST) Prior Functional Level Comments: sits EOB, Slide board transfers to the Electric scooter. OBJECTIVE: CURRENT FUNCTIONAL STATUS: Current Functional Mobility Assist Level Additional Information Rolling Maximal Assistance Supine to Sit (unable to attempt today due to pain) Sit to Supine Scooting Sit to Stand Stand to Sit Bed to Chair Toilet/Commode Gait Stairs Curb Step Car Transfer Range of Motion: Lower Extremity Comments Right Lower Extremity ROM Comments: mimimal movement tolerated. Pt unable to flex knee or hip greater than 30 degrees. Unable to DF to neutral Left Lower Extremity ROM Comments: ~50% of normal range noted in knee and hip. Tissue approximation Strength: Lower Extremity Comments Right Lower Extremity Strength Comments: 2 Left Lower Extremity Strength Comments: 4- Please see discipline specific clinical documentation flowsheet for complete details for this therapy evaluation/treatment. SIGNATURE: Catarino Zapata PT PATIENT NAME: Salazar Coyle DATE: January 08, 2018 TIME: 3:40 PM Normal [facility] THERAPY NT HNO ID: [id number] Author: Felecia Lundberg/Teresa Dickson Service: Occupational Therapy Author Type: Occupational Therapist Type: Therapy (PT/OT/Speech/Resp) Filed: 01/08/2018 1:42 PM Note Text: Occupational Therapy Evaluation SERVICE DATE: 01/08/2018 SERVICE TIME: 1140 to 1210 ROOM: [place] [address] Recommended Discharge Disposition: Subacute/SNF Justification For Post Acute Needs: Anticipate that patient will require daily (5x/wk) skilled therapy in a post-acute facility setting at the time of acute hospital discharge;May not tolerate higher intensity programing;Willing to participate;Medically complex;Living the community premorbidly;Good family support;Cognition intact OT Recommendations to Nursing: Encourage patient participation with in-bed ADL?s;Utilize bed in Chair Position (as safety/tolerance allows) OT 6 Clicks Score: 15 Precautions/Activity Restrictions: Fall Risk ASSESSMENT: OT Evaluation Moderate Complexity: Occupational Profile - Extended review of patient's medical record completed including patient's physical, cognitive, and psycho-social history (please see current hospital course of evaluation). Occupational Performance - Pt presents with deficits in feeding, grooming, UE bathing/dressing, LE bathing/dressing, functional transfers, functional mobility, decreased safety awareness, decreased insight into deficits Complexity in Clinical Decision Making - The extent of clinical reasoning was moderate, several treatment options present for the patient, need for modification during the evaluation was minimal/moderate, comorbidities affecting occupational performance: LE wounds with pain, morbid obesity, diabetic neuropathy, sciatica DJD. Patient Disposition at Start of Session: Supine in Bed Patient Disposition at End of Session: (HOB elevated for farheen set up) Tolerated Full Session Occupational Therapy Problem List: Education Deficit;Edema;Pain;Safety Deficits;Impaired Self Care;Decreased Activity Tolerance;Decreased Range Of Motion;Decreased Strength;Functional Mobility Impairment Patient /Caregiver Goals: Go To Rehab Goals for Plan of Care: Feeding with: Modified Independent Grooming with: Modified Independent Upper Body Dressing with: Modified Independent Tolerate (minutes of functional activity): 20 Functional Activity with: Stand By Assistance Additional Goal 1: Complete supine to sit EOB mod A x1 tolerate x10 min with min or less pain Progress Toward Goals: Progressing slower than expected Due To: severe R leg pain Rehab Potential: Good PLAN: Treatment Frequency (times per week): 3 (1-3) Current admission Treatment Interventions: Education;Self Care / Home Management;Energy Conservation Training;Pain Management;Functional Mobility Training (safety/coping/transfer training) Plan of Care developed with: Patient (staff) TREATMENT INTERVENTIONS: Therapy Diagnosis: Reduced mobility-other;Decreased activities of daily living (ADL);Muscle Weakness (generalized);Abnormalitie s of gait and mobility-other;General symptoms and signs-other;Lack of coordination-other Interventions Provided: Evaluation;Self Correction Management (11453) $ Evaluation-Moderate (01454) Billed Units: 1 unit Self Correction Management (80865) Treatment Minutes: 12 1 unit Skilled Intervention(s): Provided instruction, cuing and facilitation for upper body reach/grasp of bedrails and increase use ROSA as weight bearing/functional assist. Recommend staff supervision for meals and progress to chair position as safety and tolerance allows. Patient may benefit from further positioning and rocker knife. Total Timed Code Treatment Minutes: 12 Total Treatment Time (minutes): 30 FUNCTIONAL G CODE: OT 6 Clicks Score: 15 (01/08/18 1140) Self Care Current Status (G8987): CK (01/08/18 1140) Self Care Goal Status (G8988): CJ (01/08/18 1140) Based on clinical assessment and the score on the 6 Clicks Functional Assessment Tool, the G code and corresponding severity modifiers are documented above. SUBJECTIVE: Current Hospital Course: Chart reviewed; HPI: This is a 67 year old female who presents with bilateral lower extremity wounds, chronic with development of increased pain, and erythema especially involving the right leg. This patient has been followed in wound clinic for extended period of time, and has multiple comorbidities including right-sided weakness following a remote CVA. This patient also maintains that she has not been able to weight-bear on her right side also secondary to chronic wound issues and nonhealing. She has back pain as described above, chronic, low back with radicular component down posterior right leg into her foot. She has not undergone any type of prior radiologic evaluation secondary to her other medical problems and not considered a candidate for surgery. She is , resides with her who assist her with activities of daily living including assistance with wound care. She is nonweightbearing, essentially wheelchair confined, rise to keep her leg elevated as much as possible, home confined, does not have a visiting nurse or home health aide. PAST MEDICAL HISTORY Diagnosis Date - Back pain - Foot ulcer (HCC) - Generalized weakness - Hip pain - Hyperlipemia - Hypertension - Morbid obesity ([facility]) - Muscle spasm of back - Osteoarthritis - PAF (paroxysmal atrial fibrillation) ([facility]) - Rotator cuff tear - Stroke ([facility]) - Type 2 diabetes mellitus with hyperglycemia ([facility]) PAST SURGICAL HISTORY Procedure Laterality Date - APPENDECTOMY - BLADDER SURGERY HX - TONSILLECTOMY HX - TUBAL LIGATION HX Reason for Occupational Therapy Consult: GEOMATICS PROFESSOR, mobilize Relevant Past Medical History: morbid obesity cellulitis Patient Report: Severe pain 12/10 RLE Nursing aware and medications provided Home Environment Patient Lives With: Significant Other () Assistance Available: 24 Hour Entry To Home: No Stairs Tub/Shower Type: sponge bathes Equipment Owned: Commode-Raised (hospital bed,electric scooter) Prior Functional Level: Required Assistance Assistance Required With: Transfers;Ambulation;Clean ing;Laundry;Meals;Medicati on Management;Safety;Self Care;Shopping;Transportati on;Wheelchair Mobility (sit/dangle EOB AIRWAYS OPERATIONS SPECIALIST) Prior Functional Level Comments: sits EOB assist with scooter OBJECTIVE: Responsiveness: Alert;Awake Follows Commands: 1-step Commands;Cueing Needed Cueing to Follow Commands: Minimum Attention Deficits: Distractible (due to R leg pain) Executive Function Deficits: Safety Awareness;Problem Solving Safety Awareness Deficit: Moderate impairment Problem Solving Deficit: Moderate impairment CURRENT FUNCTIONAL STATUS: Current Activities of Daily Living Assist Level Feeding Supervision Grooming Minimal Assistance Bathing Upper Body Moderate Assistance Bathing Lower Body Minimal Assistance Dressing Upper Body Moderate Assistance Dressing Lower Body Maximal Assistance Toileting Total Assistance (catheter dependent/ 0 BM) Functional Mobility Assist Level Rolling Maximal Assistance Supine to Sit Maximal Assistance (prop to semi sidelying on LUE,not safe to sit EOB) Toilet/Commode Total Assistance (catheter dependent) Functional Mobility Hand Dominance: Right Range of Motion: Upper Extremity Comments R Upper Extremity ROM Comments: residual deficits from CVA L Upper Extremity ROM Comments: grossly intact Strength: Upper Extremity Comments;Lower Extremity Comments;Strength Limitation Comments Strength Limitation Comments: intact ROSA via 15 second mobility test, BLE impaired Tone Abnormalities: (deconditioned) Activity Tolerance: Sitting Activity Sitting Activity: HOB elevated/modified for meal Sitting Activity Tolerance (in minutes): 20 Functional Performance Test Functional PerformanceTest: (followed instruction but BLE weak for 15 second mobility leslie) Please see discipline specific clinical documentation flowsheet for complete details for this therapy evaluation/treatment. SIGNATURE: Felecia Dickson, OTR/L PATIENT NAME: Salazar Coyle DATE: January 08, 2018 TIME: 1:34 PM [facility] ALLIED HEALTHon 01-07-2018 ALLIED HEALTH HNO ID: [id number] Author: Susan CisnerosSkein DyerChaplain Janak Service: Spiritual Care Author Type: Skein Dyer Type: Allied Health Filed: 01/07/2018 3:57 PM Note Text: SPIRITUALCARE Spiritual Care Visit- Brief Note Name: Salazar Coyle Date: January 07, 2018 Notes: F/U visit attempted X2. Pt asleep AND no family present. Prayer; left card. Skein Dyer Signature: Chaplain Berhane To contact the Spiritual Care Department: Please call [phone] or Page the On-Call Skein Dyer at pager [phone] Thank you for the opportunity to be of service. This is an electronically created document. IF PRINTED, PLEASE DO NOT REMOVE FROM THE CHART OR MODIFY PRINTED COPY. [facility] CASE MANAGEMon 01-07-2018 CASE MANAGEM HNO ID: [id number] Author: Felecia (Rn) MATHEUS Cope Service: Care Management Author Type: Registered Nurse Type: Care Mgt Progress Note Filed: 01/07/2018 3:26 PM Note Text: CARE MANAGEMENT PROGRESS NOTE SERVICE DATE: 01/07/2018 SERVICE TIME: 3:23 PM LOS: 2 days Spoke with pt's son Bradley- states pt was possibly needed rehab at [facility]. Called pt's to attempt assessment and follow up on son's statement. No answer at home number, unable to leave message on cell phone- "vm has not been set up". SIGNATURE: Felecia Cope RN PATIENT NAME: Salazar Coyle DATE: January 07, 2018 TIME: 3:23 PM PAGER/CONTACT #: [phone] [facility] CASE MANAGEM HNO ID: [id number] Author: Twyla Tam (Sw) Service: Care Management Author Type: Occupational Therapist Assistant Type: Care Mgt Progress Note Filed: 01/07/2018 3:23 PM Note Text: CARE MANAGEMENT PROGRESS NOTE SERVICE DATE: 01/07/2018 SERVICE TIME: 1430 LOS: 2 days Medication assistance QASIM consulted to assist pt with medication assistance. Pt presents as lethargic; social work to follow. SIGNATURE: TY Gan PATIENT NAME: Salazar Coyle DATE: January 07, 2018 TIME: 3:21 PM PAGER/CONTACT #: [facility] CONSULT PROGon 01-07-2018 CONSULT PROG HNO ID: [id number] Author: Milagros Hammond) MATHEUS Galdamez Service: Wound/Ostomy Author Type: Registered Nurse Type: Consult Progress Note Filed: 01/07/2018 12:31 PM Note Text: WOUND CARE NURSE CONSULT NOTE SERVICE DATE: 01/07/2018 SERVICE TIME: 1000 REASON FOR VISIT: Wound and Pressure Injury TIME SPENT (minutes): 45 Documentation from Wound Expert can be found in scanned documents. Patient seen by Connie FERNANDEZ and shiela RN. Deep Tissue Injury of the right heel. Mes[place], dry gauze, and allevyn heel dressing BID. Friction wounds of the buttocks and bilateral posterior thighs. Allevyn foam dressing daily and PRN when soiled or nonadherent. Blister of the left back. Allevyn foam dressing daily and PRN when soiled or nonadherent. Bariatric dolphin bed, turn schedule, prevalon heel boots, moisturizer daily to bilateral lower legs, and Interdry to abdominal folds. Wound care to follow. SIGNATURE: Milagros Galdamez RN PATIENT NAME: Salazar Coyle DATE: January 07, 2018 TIME: 12:27 PM CONTACT#: [id number] [facility] PLAN OF CAREon 01-07-2018 PLAN OF CARE HNO ID: [id number] Author: Len Fernández Service: Critical Care Author Type: Resident Type: Plan of Care Filed: 01/07/2018 4:28 PM Note Text: Would note patient had been started on Apixaban in the past for stroke prevention for her Atrial Fibrillation. Her weight would preclude her from using Apixaban and additionally, she has not been able to afford it either. We recommend involving cardiology and determine if this patient would benefit from starting Warfarin, although previously there were concerns if the patient could have her INR checks done while on Warfarin. SIGNATURE: Len Fernández MD PATIENT NAME: Salazar Coyle DATE: January 07, 2018 TIME: 4:28 PM PAGER: [phone] [facility] PROGRESSon 01-07-2018 PROGRESS HNO ID: [id number] Author: Diego Obando Service: Infectious Disease Author Type: Physician Type: Progress Notes Filed: 01/07/2018 11:37 AM Note Text: INFECTIOUS DISEASE CONSULT PROGRESS NOTE SERVICE DATE: 01/07/2018 SERVICE TIME: 11:33 AM Subjective INTERVAL HISTORY: Awake, tearful, c/o pain in R leg. D/W RN and family at bedside. PERTINENT ROS: Denies headache. Current Facility-Administered Medications: oxyCODONE IR 5 mg tab(s) (ROXICODONE) 5 mg ORAL q 4 H PRN albuterol 2.5 mg /3 mL (0.083 %) 2.5 mg (PROVENTIL) 2.5 mg INHALATION q 4 H PRN vancomycin 1.5 g in D5W 250 mL (VANCOCIN) 1.5 g INTRAVENOUS q 12 HR iv contrast (radiology procedure) INTRAVENOUS DIRECTED PRN ipratropium-albuterol 3 mL nebulizer solution (DUONEB) 3 mL INHALATION q 4 H while awake potassium chloride 80-120 mEq oral liquid 80-120 mEq ORAL/FEEDING TUBE PRN potassium chloride iv piggyback 20 mEq in sterile water 100 mL 20 mEq INTRAVENOUS PRN magnesium sulfate in water 2 g in sterile water 50 ml 2 g INTRAVENOUS PRN sodium phosphate 45 mmol in NaCl 0.9% 250 mL 45 mmol INTRAVENOUS PRN calcium gluconate 4 g in NaCl 0.9% 250 mL 4 g INTRAVENOUS PRN 0.9% NaCl 3-5 mL 3-5 mL INTRAVENOUS q 12 H dextrose 40 % 15 g 15 g ORAL PRN Or glucagon 1 mg injection (GLUCAGEN) 1 mg INTRAMUSCULAR PRN Or dextrose 50% in water 25 mL syringe 12.5 g INTRAVENOUS PRN insulin regular human injection (short acting) (NovoLIN R,HumuLIN R) SUBCUTANEOUS q 6 H acetaminophen 650 mg CUP (TYLENOL) 650 mg ORAL q 4 H PRN gabapentin 600 mg cap(s) (NEURONTIN) 600 mg ORAL QID atorvastatin 40 mg tab(s) (LIPITOR) 40 mg ORAL AT BEDTIME losartan 100 mg tab(s) (COZAAR) 100 mg ORAL DAILY metoprolol tartrate (short acting) 12.5 mg tab(s) (LOPRESSOR) 12.5 mg ORAL q 12 H amLODIPine 5 mg tab(s) (NORVASC) 5 mg ORAL DAILY apixaban 5 mg tab(s) (ELIQUIS) 5 mg ORAL BID bisacodyl 10 mg suppository (DULCOLAX) 10 mg RECTAL DAILY PRN miconazole 2 % 1 application topical powder (LOTRIMIN AF, DESENEX) 1 application TOPICAL BID Objective PHYSICAL EXAM: Vital Signs: BP 132/53 Pulse 62 Temp 36.4 ?C (97.5 ?F) Resp 15 Ht 170.2 cm (5' 7") Wt (!) 231.3 kg (510 lb) SpO2 94% BMI 79.88 kg/m? HEENT anicteric sclera Priya ngs CTA anteriorly Heart S1 S2 Abdomen obese, soft, NT Extremities erythema over R anterior tibia DATA: Diagnostic Tests Reviewed for Today's Visit: WBC 6.6, MRSA screen negative, creatinine 0.7, random vanco 23.9 Impression/Recommendations Active Problems: Cellulitis POA: Yes Assessment AND Plan: Of R leg. If MRSA screen negative then DC vanco and start ancef 2 g IV q8.Vanco dose was decreased yesterday. Morbid obesity with BMI of 70 and over, adult (HCC) POA: Yes Assessment AND Plan: Complicates management. CCT > 30 minutes SIGNATURE: Diego Obando MD, MS, FACP, FIDSA PATIENT NAME: Salazar Coyle DATE: January 07, 2018 TIME: 11:32 AM PAGER/CONTACT #: [phone] [facility] PROGRESS HNO ID: [id number] Author: Tiffanie Zacarias Service: Critical Care Author Type: Physician Type: Progress Notes Filed: 01/08/2018 8:59 AM Note Text: MICU - PROGRESS NOTE SERVICE DATE: 01/07/2018 SERVICE TIME: 4:31 PM Admission Date: 01/04/2018 AGE: [age] year old LOS: 2 days Subjective REASON FOR ICU ADMISSION: encephalopathy Patient Overview: 67 yo lady with h/o morbid obesity likely PHOEBE/OHS, Afib, previous CVA, type 2 DM who was admitted for foot ulcer and was started on Abx, Per nursing staff, patient was doing well and was very alert till late afternoon today when she became completely unresponsive, a stroke code was called and CT brain didn't show any acute problem, her BS was low and she received D50 without improvement in her symptoms, her blood gas showed mild respiratory acidosis that doesn't explain her symptoms, she received also Narcan 0.4 mg before we saw her, additional 0.4 mg and 0.8 mg were given and patient was transferred to MICU Interval History: Overnight patient gradually returned to baseline mentation. Upon my evaluation she is answering all questions appropriately and is oriented. She denies any dyspnea, reports pain in her legs. She denies chest pain, fevers, nausea, vomiting, diarrhea, and/or constipation. Objective VITAL SIGNS (last 24hrs min/max): BP 134/59 Pulse 61 Temp (Src) 97.9 (Axillary) Resp 16 Ht 5' 7" (1.70m) Wt 510 lb (231.3kg) SpO2 94% BMI 79.86 kg/(m2). Temp (24hrs), Av.4 ?C (97.6 ?F), Min:36.1 ?C (97 ?F), Max:36.9 ?C (98.4 ?F) NET FLUID BALANCE Intake/Output Summary (Last 24 hours) at 01/07/18 1631 Last data filed at 01/07/18 1400 Gross per 24 hour Intake 250 ml Output 1695 ml Net -1445 ml Lines, Drains, and Airways Line Peripheral 01/05/18 1057 Short Right Forearm 20 Gauge 2 days Peripheral 01/06/18 1700 Assessment Short Right Antecubital 20 Gauge less than 1 day Drain Indwelling Urinary Catheter 01/06/18 0800 Assessment Jose 16 Fr 1 day PHYSICAL EXAM PERFORMED: General: Awake and alert, in no distress, cooperative. On 3L NC. Oriented to place, month, year, current president Neck: Supple without JVD or Lymphadenopathy Cardiac: RRR, S1S2 with no MGR Lungs: decreased breath sounds, no wheezing or crackles. Abdomen: super morbidly obese. Soft non-tender, non-distended, normal bowel sounds Extremities: No deformities, edema, clubbing or skin discoloration. DATA: LABS: Recent Labs 01/07/18 0340 01/06/18 1910 WBC 6.62 6.74 RBC 3.26* 3.31* HB 10.4* 10.3* HCT 35.3 33.3* MCV 108.3* 100.6* PLT 206 217 GLUC 158* 148* BUN 8 10 CREAT 0.72 0.76 NA 142 141 K 3.8 4.3 CHLOR 110* 107 CO2 28 30 CA 7.9* 7.5* MG -- 2.1 Assessment/Plan Acute encephalopathy likely mixed due to narcotics and hypoglycemia, resolved Acute mild hypercapnic hypoxic resp failure, improving PHOEBE/OHS Hypoglycemia H/o CVA Wound infection DM Paroxysmal Afib PLAN: Neurologic -agree with pain management, lower narcotic dose from 10-15 mg q3h as needed to 5 mg every 4 hours as needed -mentation returned to baseline -continue with Acetaminophen as needed -ct brain negative -20 min EEG showed diffuse encephalopathy without epileptiform activity Pulmonary -wean Oxygen as tolerated -continue with breathing treatment(s) Cardiovascular -continue with Apixaban for now, she would likely need to be transitioned to Warfarin however there are concerns for immobility and patient's ability to obtain INR checks -continue with Amlodipine, Atorvastatin, losartan Renal/Fluids/Electrolytes -attempt to wean off jose to female external catheter GI/Metabolic/Nutrition -restart carb controlled diet -continue with dulcolax suppository as needed Hematologic/Infectious Disease -antibiotics for diabetic ulcers per Infectious Disease (vanc) Endocrinology -continue with Insulin Glargine 45 units, reduced from 65 units, at night -mealtime insulin held, restart as appropriate -continue with sliding scale Insulin Musculoskeletal -pain control as above, PM following Disposition -transfer to regular nursing floor, accepted by [facility] under Dr. Aguirre SIGNATURE: Len Fernández MD PATIENT NAME: Salazar Coyle DATE: January 07, 2018 TIME: 4:31 PM PAGER: [phone] Please link this note to the resident's note completed on January 08, 2018. PATIENT NAME: Salazar Coyle [facility] STAFF PHYSICIAN NOTE OF PERSONAL INVOLVEMENT IN CARE I have reviewed the progress note obtained and documented by the resident and I personally participated in the arias components. I have discussed the case and management of the patient's care. The following comments revise or confirm relevant arias components of the note. CC: F/U for Acute encephalopathy HPI/ Interval findings: Sig improved this AM since receiving Narcan last night. Still c/o pain. Seen by Dr. Oro this AM; pain meds adjusted- changed to Roxicodone Denies CP, SOB, N/V/D. Stable on 3L nc. Afebrile. BP stable. Exam (performed by me): Constitutional: Vitals-reviewed and noted above. General appearance: Super morbidly obese, NAD ENT: Gross hearing intact Neck: Supple Cardiovascular: RRR Respiratory: Decreased breath sounds bibasilar bases, Normal respiratory effort without accessory muscle use Gastrointestinal(Abdomen): Obese Psych: Cooperative, AANDO x 3 Neuro: Moving all extremities Data: All data, including labs and images were reviewed, as noted above. All diagnostic tests, including labs/specimens, any culture data, and imaging, were personally reviewed by me. All medications reviewed. IMPRESSION: Critical Care Documentation: The patient has the following organ/system impairment(s) 67 yo WF w/ the following: # Acute encephalopathy- likely related to narcotics and hypoglycemia, both improved; CT head neg, spot EEG neg # Acute mild hypercapnic/hypoxemia respiratory failure- improved, still on 3L; suspect underlying atelectasis contributing # PHOEBE/OHS likely # Hypoglycemia in s/o DM II- improved # IDDM II # Cellulitis # Paroxysmal Afib- currently NSR # On chronic AC w/ apixaban # Hx of CVA # Super morbid obesity # Chronic debility # HTN- controlled PLAN: - Agree w/ reduced narcotics while still optimizing pain control; Dr. Oro following, recs appreciated - Wean FiO2 to goal sat >88% - Lantus dosing reduced; SSI - Allow po intake - Noted apixaban sub-optimal AC choice in s/o sig morbid obesity. Apparently has tried coumadin in past but w/ poor compliance/INR checks d/t chronic debility/immobility - need jose in view of wounds, but will attempt to d/c indwelling jose and try female condom cath; - Abx per ID- On Vanc; following levels - PT/OT consult - Encourage IS Code Status: DNR-CCA Dispo: Stable for floor transfer Discussed w/ patient, family, and/or staff as clinically indicated: Yes SIGNATURE: Tiffanie Zacarias MD [facility] PAGER:[phone] DATE of SERVICE: January 07, 2018 TIME of SERVICE: 9:37 AM Normal [facility] PROGRESS HNO ID: [id number] Author: Carlos Oro Service: Pain Management Author Type: Physician Type: Progress Notes Filed: 01/07/2018 8:45 AM Note Text: Salazar Coyle [id number] PAIN MANAGEMENT TEAM PAIN DIAGNOSIS: Bilateral lower extremity wounds with pain, morbid obesity, diabetic neuropathy, sciatica, DJD Pain Score/Description: c/o b/l tariq pain but overall satisfied with pain control, somewhat confused but aware she is at [facility] and knows her , d/w RN earlier today pt telling RN she thought she was at [facility] INTERVAL HPI: Status post transferred to MICU secondary to confusion?responsiveness. Received 3 doses of Narcan, does not appear in the overall benefit. Also noted to have a profoundly low blood sugar. Also demonstrated with CO2 retention SUBJECTIVE HPI: This is a 67 year old female who presents with bilateral lower extremity wounds, chronic with development of increased pain, and erythema especially involving the right leg. This patient has been followed in wound clinic for extended period of time, and has multiple comorbidities including right-sided weakness following a remote CVA. This patient also maintains that she has not been able to weight-bear on her right side also secondary to chronic wound issues and nonhealing. She has back pain as described above, chronic, low back with radicular component down posterior right leg into her foot. She has not undergone any type of prior radiologic evaluation secondary to her other medical problems and not considered a candidate for surgery. She is , resides with her who assist her with activities of daily living including assistance with wound care. She is nonweightbearing, essentially wheelchair confined, rise to keep her leg elevated as much as possible, home confined, does not have a visiting nurse or home health 8. Review of [place] Automated RX Reporting System shows no concerns, with her recent prescription history as follows: 12/24/2017 1 12/24/2017 OXYCODON-ACETAMINOPHEN 7.5-325 45 15 [place] C[place] [id number] ANDRE([id number]) 0 33.75 MME [place] 12/10/2017 1 12/10/2017 GABAPENTIN 600 MG TABLET 120 30 TN C[place] [id number] ANDRE([id number]) 0 [place] 12/10/2017 1 12/10/2017 OXYCODONE HCL 5 MG TABLET 60 15 TN C[place] [id number] ANDRE([id number]) 0 30.00 [place] 11/09/2017 1 10/10/2017 OXYCODONE HCL 5 MG TABLET 120 30 TN [place] [id number] ANDRE([id number]) 0 30.00 [place] 10/10/2017 1 10/10/2017 OXYCODONE HCL 5 MG TABLET 120 30 TN CARR[place]LL [id number] ANDRE([id number]) 0 30.00 [place] 09/07/2017 1 08/31/2017 OXYCODONE HCL 5 MG TABLET 120 30 TN CARR[place]LL [id number] ANDRE([id number]) 0 30.00 [place] 08/31/2017 1 08/31/2017 GABAPENTIN 600 MG TABLET 120 30 TN CARR[place] [id number] ANDRE([id number]) 0 [place] 08/15/2017 2 08/05/2017 OXYCODONE HCL 5 MG TABLET 30 7 TH LEH [id number] ABS([id number]) 0 32.14 MME [place] 08/08/2017 1 07/05/2017 OXYCODONE HCL 5 MG TABLET 120 30 AN KOG [id number] ANDRE([id number]) 0 30.00 [place] 08/06/2017 2 08/05/2017 OXYCODONE HCL 5 MG TABLET 30 7 TH LEH [id number] ABS([id number]) 0 32.14 MME [place] On 12/24/2017 her opiates were essentially increased to Percocet 7.5/325 with anticipated use of 3 times a day, prior to this was utilizing oxycodone 5 mg approximately 4 times a day. Her last prescription for Percocet 7.5/325 was For #45 pills on 12/24. She is also on gabapentin 600 mg 4 times a day. 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 This change in dose occurred on the day of admission. MEDICATIONS Current Facility-Administered Medications: vancomycin 1.5 g in D5W 250 mL (VANCOCIN) 1.5 g INTRAVENOUS q 12 HR Julio C Obando Last Rate: 125 mL/hr at 01/07/18 0205 1.5 g at 01/07/18 0205 iv contrast (radiology procedure) INTRAVENOUS DIRECTED PRN Jacky Alfonso MD ipratropium-albuterol 3 mL nebulizer solution (DUONEB) 3 mL INHALATION q 4 H PRN Jesus Galindo DO 3 mL at 01/06/182013 ipratropium-albuterol 3 mL nebulizer solution (DUONEB) 3 mL INHALATION q 4 H while awake Ki (Res) Pannikottu 3 mL at 01/06/18 1815 potassium chloride 80-120 mEq oral liquid 80-120 mEq ORAL/FEEDING TUBE PRN Zachariah (Res) MD Kim potassium chloride iv piggyback 20 mEq in sterile water 100 mL 20 mEq INTRAVENOUS PRN Zachariah (Res) MD Kim magnesium sulfate in water 2 g in sterile water 50 ml 2 g INTRAVENOUS PRN Zachariah (Res) MD Kim sodium phosphate 45 mmol in NaCl 0.9% 250 mL 45 mmol INTRAVENOUS PRN Zachariah (Res) MD Kim calcium gluconate 4 g in NaCl 0.9% 250 mL 4 g INTRAVENOUS PRN Zachariah (Res) MD Kim 0.9% NaCl 3-5 mL 3-5 mL INTRAVENOUS q 12 H Zachariah (Res) MD Kim 5 mL at 01/06/18 2300 dextrose 40 % 15 g 15 g ORAL PRN Zachariah (Res) MD Kim Or glucagon 1 mg injection (GLUCAGEN) 1 mg INTRAMUSCULAR PRN Zachariah (Res) MD Kim Or dextrose 50% in water 25 mL syringe 12.5 g INTRAVENOUS PRN Zachariah (Res) MD Kim insulin regular human injection (short acting) (NovoLIN R,HumuLIN R) SUBCUTANEOUS q 6 H Zachariah (Res) MD Kim insulin glargine 45 Units pen (long acting) (LANTUS SOLOSTAR, BASAGLAR KWIKPEN) 45 Units SUBCUTANEOUS AT BEDTIME Zachariah (Res) MD Kim ketorolac 30 mg injection (TORADOL) 30 mg INTRAVENOUS q 6 H PRN Zachariah (Res) MD Kim 30 mg at 01/07/18 0000 acetaminophen 650 mg CUP (TYLENOL) 650 mg ORAL q 4 H PRN Zachariah (Res) MD Kim gabapentin 600 mg cap(s) (NEURONTIN) 600 mg ORAL QID Jesus Galindo, DO 600 mg at 01/06/18 1232 atorvastatin 40 mg tab(s) (LIPITOR) 40 mg ORAL AT BEDTIME Jesus Galindo, DO 40 mg at 01/05/18 2040 losartan 100 mg tab(s) (COZAAR) 100 mg ORAL DAILY Jesus Galindo, DO 100 mg at 01/06/18 0816 metoprolol tartrate (short acting) 12.5 mg tab(s) (LOPRESSOR) 12.5 mg ORAL q 12 H Jesus Galindo, DO 12.5 mg at 01/06/18 0816 amLODIPine 5 mg tab(s) (NORVASC) 5 mg ORAL DAILY Jesus Galindo, DO 5 mg at 01/06/18 0816 apixaban 5 mg tab(s) (ELIQUIS) 5 mg ORAL BID Jesus Galindo, DO 5 mg at 01/06/18 0816 bisacodyl 10 mg suppository (DULCOLAX) 10 mg RECTAL DAILY PRN Jesus Galindo DO influenza vaccine 180 mcg (Patients 65 years and older) (PF) (FLUZONE HIGH DOSE 2018-) 0.5 mL INTRAMUSCULAR ONCE (IMMUNIZATION) Cheryle Romero miconazole 2 % 1 application topical powder (LOTRIMIN AF, DESENEX) 1 application TOPICAL BID Julio C Obando 1 application at 01/06/18 4736 Prescriptions Prior to Admission: aspirin 81 mg chewable tablet Take 81 mg by mouth once daily. Disp: Rfl: oxyCODONE-acetaminophen (PERCOCET) 7.5-325 mg tablet Take 1 tablet by mouth three times daily. Disp: Rfl: amLODIPine (NORVASC) 5 mg tablet Take 1 tablet by mouth once daily. Disp: Rfl: atorvastatin (LIPITOR) 40 mg tablet Take 1 tablet by mouth daily at bedtime. Disp: Rfl: bisacodyl (DULCOLAX) 10 mg supp 1 Suppository by RECTAL route once daily as needed. Disp: Rfl: cyclobenzaprine (FLEXERIL) 10 mg tablet Take 1 tablet by mouth three times daily as needed for Muscle Spasm. Disp: Rfl: insulin lispro (HUMALOG KWIKPEN) 100 unit/mL inpn Inject 22 Units subcutaneously w MEALS. Disp: Rfl: insulin lispro (HUMALOG KWIKPEN) 100 unit/mL pen If Blood Glucose (mg/dL) is: Less than 110= 0 units, 111-150= 0 units, 151-200= 3 units, 201-250= 6 units, 251-300= 9 units, 301-350= 12 units, 351-400= 15 units, Greater than 400= 18 units, Disp: Rfl: metoprolol tartrate, short acting, (LOPRESSOR) 25 mg tablet Take 0.5 tablets by mouth every 12 hours. Disp: Rfl: amitriptyline (ELAVIL) 10 mg tablet Take 20 mg by mouth daily at bedtime. Disp: Rfl: miconazole (MONISTAT-DERM,MAY) 2 % cream Apply 1 application to affected area twice daily. Disp: 90 g Rfl: 1 LANTUS SOLOSTAR 100 unit/mL (3 mL) inpn Inject 65 units subcutaneously at bedtime Disp: 10 Pen Rfl: 6 07/19/2017 at Unknown time NOVOLOG FLEXPEN 100 unit/mL inpn Dose varies units with meals, using about 66 total units a day (Patient taking differently: Inject 22 Units subcutaneously three times daily with meals. ) Disp: 10 Pen Rfl: 6 07/20/2017 at Unknown time gabapentin (NEURONTIN) 600 mg tablet 600 mg four times daily. Disp: Rfl: 07/20/2017 at Unknown time NOVOFINE 30 30 gauge x 1/3" ndle 1 Pen Needle four times daily. Disp: 120 Each Rfl: 2 Unknown at Unknown time lidocaine (LIDODERM) 5 % Apply 3 Patches as directed every 12 hours. Two patches to right hip, 1 patch to left thigh Disp: Rfl: Unknown at Unknown time baclofen (LIORESAL) 20 mg tablet 20 mg three times daily. Disp: Rfl: 07/20/2017 at Unknown time losartan (COZAAR) 100 mg tablet Take 100 mg by mouth once daily. Disp: Rfl: 07/20/2017 at Unknown time PAST MEDICAL HISTORY PAST MEDICAL HISTORY Diagnosis Date - Back pain - Foot ulcer (HCC) - Generalized weakness - Hip pain - Hyperlipemia - Hypertension - Morbid obesity (HCC) - Muscle spasm of back - Osteoarthritis - PAF (paroxysmal atrial fibrillation) (HCC) - Rotator cuff tear - Stroke (HCC) - Type 2 diabetes mellitus with hyperglycemia (HCC) PAST SURGICAL HISTORY PAST SURGICAL HISTORY Procedure Laterality Date - APPENDECTOMY - BLADDER SURGERY HX - TONSILLECTOMY HX - TUBAL LIGATION HX ALLERGIES No Known Allergies FAMILY HISTORY Problem Relation Age of Onset - Heart Mother - Diabetes Mother - Stroke Father - Cancer Other - Osteoporosis Other Social History Substance Use Topics - Smoking status: Never Smoker - Smokeless tobacco: Never Used - Alcohol use No Social History Narrative None on file REVIEW OF SYSTEMS: all of the following reviewed and negative except as noted below: GENERAL: no fever, chills, sweats, weight loss, fatigue, generalized weakness HEENT: no headache, vision changes, eye discomfort, hearing change, ear discomfort, sinus pain, nasal discharge or congestion, oral lesions, soreness, dental problem NECK: no adenopathy, discomfort, change in ROM CHEST: no shortness of breath, dyspnea on exertion, wheezing, cough, sputum production or chest pain HEART: no chest pain, palpitations, syncope ABDOMEN: no nausea, vomiting, constipation, diarrhea, abdominal pain : no dysuria, urgency, frequency, history of stones, incontinence NEURO: no confusion or alteration in consciousness, slurred speech, seizure, focal weakness EXTREMITIES: no new pain, edema, change in ROM HEME: no new adenopathy, bruises, petechiae PSYCH: no depression, anxiety, agitation OBJECTIVE PHYSICAL EXAMINATION: see below for new or abnormal findings BP 127/53 Pulse 60 Temp (Src) 97.3 (Axillary) Resp 12 Ht 5' 7" (1.70m) Wt 504 lb 3.1 oz (228.7kg) SpO2 93% BMI 78.95 kg/(m2). GENERAL: well nourished and developed; no acute distress; alert and oriented x 3; intact judgement and insight. Appears to be at baseline compared to yesterday's evaluation HEENT: no evidence of trauma; cranial nerves intact; eyes clear EOMI; no hearing deficits apparent; nasal passages unremarkable; throat and mucous membranes clear NECK: supple without lymphadenopathy; no JVD; no thyromegaly CHEST: clear bilaterally to auscultation; normal chest movement; no rales or rhonchi HEART: regular rate and rhythm, normal S1 and S2, no murmurs, clicks, rubs, or gallops ABDOMEN: soft; nondistended; bowel sounds present; no hepatomegaly; no splenomegaly; no tenderness EXTREMITIES: no evidence of clubbing; no cyanosis; no deformity; no joint effusion; no edema NEURO: cranial nerves intact; no focal deficits; no confusion; no tremor; sensorium normal SKIN: no rash; no skin breakdown; no decubitus lesions HEME: no bruising; no adenopathy PSYCH: no evidence of depression; no anxiety; no agitation; no apparent hallucinations DATA: CBC: Recent Labs 01/06/181909 WBC 6.74 RBC 3.31* HB 10.3* HCT 33.3* PLT 217 MCV 100.6* MCH 31.1 MPV 11.0 RDW 15.5* CMP: Recent Labs 01/07/18 0340 01/06/181909 NA 142 141 K 3.8 4.3 CHLOR 110* 107 CO2 28 30 BUN 8 10 CREAT 0.72 0.76 GLUC 158* 148* CA 7.9* 7.5* MG -- 2.1 ANION 8 8 Heme: No results for input(s): RETICP, ABSRETIC, LD, GISELE, FE, TIBC, TRANSFERSAT in the last 24 hours. 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, Lumbar Region Type 2 Diabetes Mellitus With Hyperglycemia (Hcc) Wounds, Multiple Paf (Paroxysmal Atrial Fibrillation) (Hcc) Osteoarthritis Hypertension Hyperlipemia Foot Ulcer (Hcc) Tia (Transient Ischemic Attack) Bmi 60.0-69.9, Adult (Hcc) Stroke (Hcc) Patient Noncompliant With Anticoagulant Medication Chronic Pain Cellulitis Diet DIET NPO LAST BOWEL MOVEMENT Number of BMs: (last bm 01/02 ) (01/06/18 1900) Prior to Admission Opiate Status Continuous Outpatient Pain Management: Yes. 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 Once results are back our team will notify her pain management physician with any concerns. Restart Oxycodone at 5 mg q4h prn moderate-severe pain Will NOT require a prescription for discharge as she has one available for Percocet 7.5/325 with use up to 4 times a day to be filled post discharge. Pt reports she had called her physician after he gave her the Percocet 7.5/325 #90 because she felt 3/day was not enough. S/p Narcan x 3 on 01/06, s/p d/c Oxycodone on 01/06 last dose was 15mg at noon S/p transfer to MICU on 01/[address] brain-nothing acute Patient at higher risk of opiate induced respiratory depression with morbid obesity Follow-up with [facility] AGUSTIN CAVAZOS, PHARMACIST 7:37 AM Pt seen and examined independently. Discussed with the Pain Service, and agree with above note as amended in blue Carlos Oro MD [facility] ALLIED HEALTHon 01-06-2018 ALLIED HEALTH HNO ID: [id number] Author: Antonella () Chaplain Derek Service: Spiritual Care Author Type: Skein Dyer Type: Allied Health Filed: 01/06/2018 8:03 PM Note Text: SPIRITUALCARE Spiritual Care Visit- Brief Note Name: Salazar Coyle Date: January 06, 2018 Notes:Stroke Team called for patient. No family present. Made Skein Dyer available to dehydration unit operator. Skein Dyer Signature: Chaplain Theresa To contact the Spiritual Care Department: Please call [phone] or Page the On-Call Skein Dyer at pager [phone] Thank you for the opportunity to be of service. This is an electronically created document. IF PRINTED, PLEASE DO NOT REMOVE FROM THE CHART OR MODIFY PRINTED COPY. [facility] CONSULTon 01-06-2018 CONSULT HNO ID: [id number] Author: Zachariah Alvarez MD Service: Critical Care Author Type: Resident Type: Consults Filed: 01/06/2018 9:15 PM Note Text: -- Attestation signed by Francisco Singh at 01/07/2018 2:32 AM [facility] STAFF PHYSICIAN NOTE OF PERSONAL INVOLVEMENT IN CARE I have reviewed the consult note obtained and documented by the resident and I personally participated in the arias components. I have discussed the case and management of the patient's care. The following comments revise or confirm relevant arias components of the note. 67 yo lady with h/o morbid obesity likely PHOEBE/OHS, Afib, previous CVA, type 2 DM who was admitted for foot ulcer and was started on Abx, Per nursing staff, patient was doing well and was very alert till late afternoon today when she became completely unresponsive, a stroke code was called and CT brain didn't show any acute problem, her BS was low and she received D50 without improvement in her symptoms, her blood gas showed mild respiratory acidosis that doesn't explain her symptoms, she received also Narcan 0.4 mg before we saw her, additional 0.4 mg and 0.8 mg were given and patient was transferred to MICU IMPRESSION: Acute encephalopathy in part related to narcotics and hypoglycemia, patient had fixed eye on exam so should also r/o seizure, she had also some episodes of rigid upper extremities but tonic or clonic mvt Acute mild hypercapnic hypoxic resp failure PHOEBE/OHS Hypoglycemia H/o CVA Wound infection DM Afib PLAN: MICU for close observation Will get 20 min EEG stat Narcan will be given again till improvement in her mental status Frequent BS checks now improved Keep NPO for now Continue ABx, ID following Wound care eval Trend VBGs ICU prophylaxis This patient has a high probability of sudden, clinically significant deterioration, which requires the highest level of physician preparedness to intervene urgently. I managed/supervised life or organ supporting interventions that required frequent physician assessment. I devoted my full attention to the direct care of this patient for the amount of time indicated below. Time I spent with family or surrogate(s) is included only if the patient was incapable of providing the necessary information or participating in medical decision making. Time devoted to teaching and to any procedures I billed separately is not included. Critical Care Documentation: The patient has the following organ/system impairment(s): Encephalopathy, acute hypoxic and hypercapnic resp failure Time spent providing critical care services: 35 minutes. SIGNATURE: Francisco Singh MD [facility] DATE of SERVICE: 01/06/18 TIME of SERVICE: 8pm -- Medical Intensive Care Consult Note / HANDP January 06, 2018 Patient Name: Salazar Coyle Patient Location: [id number] Admission Date: 01/04/2018 Length of Stay: 1 Primary Service: Medical Intensive Care Requesting Physician: Dr Jean Assessment and plan will be discussed with Dr. Singh and he will addend this note as he sees appropriate. Please await his recommendations. History of present illness: Patient is a 67 year old White female who presented with worsening LE pain and wounds. She has had prior LE ankle wounds and now was having redness and pain over her R lyons. She was admitted 3 months ago for AMS and was found to have stroke. She has A-fib and is currently anticoagulated. The patient has persistent R arm weakness due to stroke and RLE weakness/chronic pain due to old injury. She does follow her wounds in wound care clinic. Today Stroke team was called for the patient , as she was altered and not responding. Per nurse she was more confused/ drowsy and not following commands . Her NIH stroke scale was 18. She is not a candidate for tpa because she was on anticoagulation . Per Nurse she was suppose to be taking eliquis but had not been taking it due to financial reasons before hospital admission. She was only on baby aspirin . Her blood glucose was checked at that time and it was in 60's . She received 1/2 amp of D50. Her repeat blood glucose was still 87 . Another amp of D50 was given . Dr Alfonso was also consulted . CT head was done which showed no acute intracranial process. VBG showed a pH of 7.346 and a CO2 of 54.2. She had been saturating well on 3-6 Litres of oxygen . The patient was receiving oxycodone and received the last dose at around 12.30.at around 6.50 PM the nurse reported that the patient had a brief apneic episode , lasting for around 20 seconds. When I saw the patient , she was breathing , pulse was present , she was saturating at 100% on 6 Litres oxygen and responding to painful stimuli . Repeat labs were sent . Subjective ROS PAST MEDICAL HISTORY Diagnosis Date - Back pain - Foot ulcer (HCC) - Generalized weakness - Hip pain - Hyperlipemia - Hypertension - Morbid obesity (HCC) - Muscle spasm of back - Osteoarthritis - PAF (paroxysmal atrial fibrillation) (HCC) - Rotator cuff tear - Stroke (HCC) - Type 2 diabetes mellitus with hyperglycemia (HCC) PAST SURGICAL HISTORY Procedure Laterality Date - APPENDECTOMY - BLADDER SURGERY HX - TONSILLECTOMY HX - TUBAL LIGATION HX Family History Problem Relation Age of Onset - Heart Mother - Diabetes Mother - Stroke Father - Cancer Other - Osteoporosis Other Social History Marital status: Spouse name: Years of education: Number of children: Occupational History Occupation Employer Comment Retired Social History Main Topics Smoking status: Never Smoker Smokeless tobacco: Never Used Alcohol use: No Drug use: No No current facility-administered medications on file prior to encounter. Current Outpatient Prescriptions on File Prior to Encounter: amLODIPine (NORVASC) 5 mg tablet Take 1 tablet by mouth once daily. atorvastatin (LIPITOR) 40 mg tablet Take 1 tablet by mouth daily at bedtime. bisacodyl (DULCOLAX) 10 mg supp 1 Suppository by RECTAL route once daily as needed. cyclobenzaprine (FLEXERIL) 10 mg tablet Take 1 tablet by mouth three times daily as needed for Muscle Spasm. insulin lispro (HUMALOG KWIKPEN) 100 unit/mL inpn Inject 22 Units subcutaneously w MEALS. insulin lispro (HUMALOG KWIKPEN) 100 unit/mL pen If Blood Glucose (mg/dL) is: Less than 110= 0 units, 111-150= 0 units, 151-200= 3 units, 201-250= 6 units, 251-300= 9 units, 301-350= 12 units, 351-400= 15 units, Greater than 400= 18 units, metoprolol tartrate, short acting, (LOPRESSOR) 25 mg tablet Take 0.5 tablets by mouth every 12 hours. amitriptyline (ELAVIL) 10 mg tablet Take 20 mg by mouth daily at bedtime. miconazole (MONISTAT-DERM,MAY) 2 % cream Apply 1 application to affected area twice daily. LANTUS SOLOSTAR 100 unit/mL (3 mL) inpn Inject 65 units subcutaneously at bedtime NOVOLOG FLEXPEN 100 unit/mL inpn Dose varies units with meals, using about 66 total units a day (Patient taking differently: Inject 22 Units subcutaneously three times daily with meals. ) gabapentin (NEURONTIN) 600 mg tablet 600 mg four times daily. NOVOFINE 30 30 gauge x 1/3" ndle 1 Pen Needle four times daily. lidocaine (LIDODERM) 5 % Apply 3 Patches as directed every 12 hours. Two patches to right hip, 1 patch to left thigh baclofen (LIORESAL) 20 mg tablet 20 mg three times daily. losartan (COZAAR) 100 mg tablet Take 100 mg by mouth once daily. Objective Present Condition: 01/06/18 1635 01/06/18 1653 01/06/18 17001/06/18 1815 BP: 122/62 119/53 Pulse: 77 60 61 Resp: 24 22 20 Temp: 36.9 ?C (98.4 ?F) 36.7 ?C (98.1 ?F) TempSrc: SpO2: 97% Weight: (!) 228.7 kg (504 lb 3.1 oz) Height: Physical Exam PHYSICAL EXAMINATION: General appearance: Patient drowsy , opens eyes to painful stimuli , sometimes spontaneously opens eyes, not following commands Neck: Supple, no adenopathy; thyroid symmetric, normal size, no bruits Back: Normal exam Lungs: Wheezes present bilaterally , breath sounds cold not be clearly appreciated because of body habitus Heart: RRR without murmur, gallop, or rubs. No ectopy Abdomen: Normal abdominal exam, Abdomen soft, non-tender. Bowel sounds normal. No masses, organomegaly Extremities: Non-tender, no edema, wounds on b/l upper thighs dorsal side and medial. B/L shins worse on R side Musculoskeletal: No joint swelling, deformity, or tenderness Peripheral pulses: Normal Neuro: Patient drowsy, does not follow commands, sometimes spontaneously opens eyes, groans to painful stimuli Labs: CBC: Recent Labs 01/06/18 0825 01/04/182199 WBC 6.66 10.75* HB 11.0* 11.4 HCT 35.1 36.3 PLT 222 235 MCV 99.7* 98.1* COAG: No results for input(s): APTT, INR in the last 168 hours. BMP: Recent Labs 01/04/18 2200 GLUC 183* NA 142 K 4.0 CHLOR 105 CO2 31 ANION 10 BUN 13 CREAT 0.69 CHEM: Recent Labs 01/04/18 2200 CA 8.4* HEPATIC: No results for input(s): ALKPHOS, ALT, AST, TBILI, LIPASE in the last 168 hours. URINALYSIS: Recent Labs 01/06/18 17001/06/18 0800 PH 7.346* -- SPGR -- 1.009 UGLUC -- NEGATIVE UBILI -- NEGATIVE UKET -- NEGATIVE UPROT -- NEGATIVE UROBIL -- 0.2 CARDIAC: No results for input(s): CKTEST, CKMB, CKMBP in the last 168 hours.TROPONIN@:8,No results found for: BNP:8)@ Assessment/Plan Assessment and Critical Care Plan 1. Acute encephalopathy multifactorial - Hypoglycemia: Hold insulin Blood glucose was in 60's 1/2 amp of D50 was given Blood glucose only increased to 87. Another amp of D50 was given , blood glucose increased to 104 -Hypercarbia secondary to opioid overdose in the setting of OHA Patient saturating well on 3-6 L of oxygen Narcan given - 1.6 mg Will repeat Narcan if no improvement Repeat ABG - Subclinical seizures 20 min EEG - New Stroke CT head is negative Patient is not a candidate for tpa as she is on anticoagulation with eliquis 2. B/L LE cellulitis - Continue Vancomycin - Wound care - MRSA screen negative - Blood cultures no growth Signed: Zachariah Alvarez MD, PGY-1 Pager: [phone] CEX Phone: [phone] Date: January 06, 2018 Time: 6:39 PM Recommendations are not finalized until co-signed by Staff physician. Normal [facility] CONSULT HNO ID: [id number] Author: Savannah Ricketts Service: Urology Author Type: Physician Type: Consults Filed: 01/06/2018 11:59 AM Note Text: Urology Consultation 07/20/2017 HISTORY OF PRESENT ILLNESS: The patient is a 66 year old female seem previously in hospital consultation for urinary incontinence. Patient is morbidly obese and bed bound. She has urinary incontinence and has posterior thigh wounds from immobility and sitting in urine. Nursing placed Jose catheter this morning for 500 cc yellow urine. Patient denies previous history, although she does complain of urinary urgency. UA negative for infection. PAST MEDICAL HISTORY: PAST MEDICAL HISTORY Diagnosis Date - Back pain - Foot ulcer (HCC) - Generalized weakness - Hip pain - Hyperlipemia - Hypertension - Morbid obesity (HCC) - Muscle spasm of back - Osteoarthritis - PAF (paroxysmal atrial fibrillation) ([facility]) - Rotator cuff tear - Stroke ([facility]) - Type 2 diabetes mellitus with hyperglycemia ([facility]) PAST SURGICAL HISTORY: PAST SURGICAL HISTORY Procedure Laterality Date - APPENDECTOMY - BLADDER SURGERY HX - TONSILLECTOMY HX - TUBAL LIGATION HX ALLERGIES: ALLERGIES No Known Allergies HOME MEDICATIONS: Prescriptions Prior to Admission: aspirin 81 mg chewable tablet Take 81 mg by mouth once daily. Disp: Rfl: oxyCODONE-acetaminophen (PERCOCET) 7.5-325 mg tablet Take 1 tablet by mouth three times daily. Disp: Rfl: amLODIPine (NORVASC) 5 mg tablet Take 1 tablet by mouth once daily. Disp: Rfl: atorvastatin (LIPITOR) 40 mg tablet Take 1 tablet by mouth daily at bedtime. Disp: Rfl: bisacodyl (DULCOLAX) 10 mg supp 1 Suppository by RECTAL route once daily as needed. Disp: Rfl: cyclobenzaprine (FLEXERIL) 10 mg tablet Take 1 tablet by mouth three times daily as needed for Muscle Spasm. Disp: Rfl: insulin lispro (HUMALOG KWIKPEN) 100 unit/mL inpn Inject 22 Units subcutaneously w MEALS. Disp: Rfl: insulin lispro (HUMALOG KWIKPEN) 100 unit/mL pen If Blood Glucose (mg/dL) is: Less than 110= 0 units, 111-150= 0 units, 151-200= 3 units, 201-250= 6 units, 251-300= 9 units, 301-350= 12 units, 351-400= 15 units, Greater than 400= 18 units, Disp: Rfl: metoprolol tartrate, short acting, (LOPRESSOR) 25 mg tablet Take 0.5 tablets by mouth every 12 hours. Disp: Rfl: amitriptyline (ELAVIL) 10 mg tablet Take 20 mg by mouth daily at bedtime. Disp: Rfl: miconazole (MONISTAT-DERM,MAY) 2 % cream Apply 1 application to affected area twice daily. Disp: 90 g Rfl: 1 LANTUS SOLOSTAR 100 unit/mL (3 mL) inpn Inject 65 units subcutaneously at bedtime Disp: 10 Pen Rfl: 6 07/19/2017 at Unknown time NOVOLOG FLEXPEN 100 unit/mL inpn Dose varies units with meals, using about 66 total units a day (Patient taking differently: Inject 22 Units subcutaneously three times daily with meals. ) Disp: 10 Pen Rfl: 6 07/20/2017 at Unknown time gabapentin (NEURONTIN) 600 mg tablet 600 mg four times daily. Disp: Rfl: 07/20/2017 at Unknown time NOVOFINE 30 30 gauge x 1/3" ndle 1 Pen Needle four times daily. Disp: 120 Each Rfl: 2 Unknown at Unknown time lidocaine (LIDODERM) 5 % Apply 3 Patches as directed every 12 hours. Two patches to right hip, 1 patch to left thigh Disp: Rfl: Unknown at Unknown time baclofen (LIORESAL) 20 mg tablet 20 mg three times daily. Disp: Rfl: 07/20/2017 at Unknown time losartan (COZAAR) 100 mg tablet Take 100 mg by mouth once daily. Disp: Rfl: 07/20/2017 at Unknown time FAMILY HISTORY: Family History Problem Relation Age of Onset - Heart Mother - Diabetes Mother - Stroke Father - Cancer Other - Osteoporosis Other Social History: Tobacco Use: Never Alcohol Use: No ROS: Constitutional: negative for chills and fevers HEENT: no blurry vision or eye redness Respiratory: negative for hemoptysis and shortness of breath Cardiovascular: negative for dyspnea and syncope Gastrointestinal: negative for jaundice, nausea and vomiting Genitourinary: + urinary urgency, incontinence Hematologic/lymphatic: negative for bleeding Integumentary: no new bruises or lesions Musculoskeletal: LE wounds Neurological: negative for coordination problems and seizures All other systems negative PHYSICAL EXAM: VITALS: 01/05/18 2037 01/05/18 2226 01/06/18 0627 01/06/18 1000 BP: (!) 131/48 (!) 117/38 (!) 128/43 (!) 94/36 Pulse: 78 72 75 62 Resp: 20 20 20 Temp: 36.7 ?C (98.1 ?F) 36.5 ?C (97.7 ?F) 37.1 ?C (98.8 ?F) 36.8 ?C (98.2 ?F) TempSrc: Oral Temporal Artery Oral Tympanic SpO2: 99% 96% 94% 95% Weight: Height: General: Alert, in no acute distress Head: Normocephalic, atraumatic Neck: supple, trachea is midline, no obvious masses Respiratory: normal effort, no audible wheezes Cardiovascular: regular pulse and no cyanosis Musculoskeletal: LE wounds Skin: warm and dry Psych: normal mood and affect, oriented Abdomen: soft, morbidly obese, non distended, non tender, no organomegaly, no hernias : 16 fr Jose, yellow urine DATA: LABS: BMP: . Glucose (mg/dL) Date Value 01/04/2018 183 Potassium (mEq/L) Date Value 01/04/2018 4.0 Sodium (mEq/L) Date Value 01/04/2018 142 Chloride (mEq/L) Date Value 01/04/2018 105 CO2 (mEq/L) Date Value 01/04/2018 31 Creatinine (mg/dL) Date Value 01/04/2018 0.69 BUN (mg/dL) Date Value 01/04/2018 13 Anion Gap (no units) Date Value 01/04/2018 10 Calcium (mg/dL) Date Value 01/04/2018 8.4 CBC: HGB (g/dL) Date Value 01/06/2018 11.0 Hematocrit (%) Date Value 01/06/2018 35.1 WBC (thou/cmm) Date Value 01/06/2018 6.66 Platelet Count (thou/cmm) Date Value 01/06/2018 222 Urinalysis: Specific [place], Ur Date Value Ref Range Status 01/06/2018 1.009 1.005 - 1.030 Final Glucose, Urine Date Value Ref Range Status 01/06/2018 NEGATIVE Negative mg/dL Final Bilirubin, Urine Date Value Ref Range Status 01/06/2018 NEGATIVE Negative Final Ketones, Urine Date Value Ref Range Status 01/06/2018 NEGATIVE Negative mg/dL Final Protein, Urine Date Value Ref Range Status 01/06/2018 NEGATIVE Negative mg/dL Final Urobilinogen, Urine Date Value Ref Range Status 01/06/2018 0.2 0.0 - 1.0 EU/dL Final Nitrites Urine Date Value Ref Range Status 10/11/2017 NEGATIVE Negative Final WBC, Urine Date Value Ref Range Status 10/11/2017 1.0 0.0 - 5.0 /hpf Final Urine Culture: Urine Culture (no units) Date Value 07/24/2017 No growth RADIOLOGY: No recent imaging IMPRESSION: 66 year old female with morbid obesity, immobility, urinary incontinence AND nonhealing LE wounds PLAN: - 16 Fr Jose placed for urinary incontinence to divert urine from nonhealing wounds - Jose per primary - No evidence of UTI at this point. Discussed risk of CAUTI with long-term chronic jose. - No further intervention - Home with jose. Given patients body habitus, not a candidate for self-catheterization - Follow-up as outpatient for monthly catheter changes, and to evaluate wound-healing to eventually dc jsoe if possible Thank you for allowing me to participate in the care of your patient SIGNATURE: Ally Cavazos MD PATIENT NAME: Salazar Coyle DATE: 01/06/18 TIME: 11:06 AM PAGER: [phone] Attending Note I evaluated the patient and personally participated in the arias components. I agree with the resident's findings and plan as documented and have discussed the case and management of the patient's care with the resident. Signature: Savannah Ricketts DO, MBA Date: 01/06/2018 Time: 11:59 AM Normal [facility] CONSULT HNO ID: [id number] Author: Carlos Oro Service: Pain Management Author Type: Physician Type: Consults Filed: 01/06/2018 7:11 AM Note Text: Salazar Burroughs Leonides [id number] PAIN MANAGEMENT TEAM PAIN DIAGNOSIS: Bilateral lower extremity wounds with pain Pain Score/Description: Chronic low back pain 8/10 in severity at its worst, never better than 6/10, aching, with radicular component down posterior right leg into her foot. Second pain involving her anterior tibial region of the right calf. Some burning component, aggravated by palpation, wound care. INTERVAL HPI: SUBJECTIVE HPI: This is a 67 year old female who presents with bilateral lower extremity wounds, chronic with development of increased pain, and erythema especially involving the right leg. This patient has been followed in wound clinic for extended period of time, and has multiple comorbidities including right-sided weakness following a remote CVA. This patient also maintains that she has not been able to weight-bear on her right side also secondary to chronic wound issues and nonhealing. She has back pain as described above, chronic, low back with radicular component down posterior right leg into her foot. She has not undergone any type of prior radiologic evaluation secondary to her other medical problems and not considered a candidate for surgery. She is , resides with her who assist her with activities of daily living including assistance with wound care. She is nonweightbearing, essentially wheelchair confined, rise to keep her leg elevated as much as possible, home confined, does not have a visiting nurse or home health 8. Review of [place] Automated RX Reporting System shows no concerns, with her recent prescription history as follows: 12/24/2017 1 12/24/2017 OXYCODON-ACETAMINOPHEN 7.5-325 45 15 [place] [id number] ANDRE([id number]) 0 33.75 MME [place] 12/10/2017 1 12/10/2017 GABAPENTIN 600 MG TABLET 120 30 [place] [id number] ANDRE([id number]) 0 [place] 12/10/2017 1 12/10/2017 OXYCODONE HCL 5 MG TABLET 60 15 [place] [id number] ANDRE([id number]) 0 30.00 [place] 11/09/2017 1 10/10/2017 OXYCODONE HCL 5 MG TABLET 120 30 [place] [id number] ANDRE([id number]) 0 30.00 [place] 10/10/2017 1 10/10/2017 OXYCODONE HCL 5 MG TABLET 120 30 TN [place] [id number] ANDRE([id number]) 0 30.00 [place] 09/07/2017 1 08/31/2017 OXYCODONE HCL 5 MG TABLET 120 30 [place] [id number] ANDRE([id number]) 0 30.00 [place] 08/31/2017 1 08/31/2017 GABAPENTIN 600 MG TABLET 120 30 TN [place] [id number] ANDRE([id number]) 0 [place] 08/15/2017 2 08/05/2017 OXYCODONE HCL 5 MG TABLET 30 7 TH LE[facility] [id number] ABS([id number]) 0 32.14 MME [place] 08/08/2017 1 07/05/2017 OXYCODONE HCL 5 MG TABLET 120 30 AN KOG [id number] ANDRE([id number]) 0 30.00 [place]ME [place] 08/06/2017 2 08/05/2017 OXYCODONE HCL 5 MG TABLET 30 7 TH [facility] [id number] ABS([id number]) 0 32.14 MME [place] On 12/24/2017 her opiates were essentially increased to Percocet 7.5/325 with anticipated use of 3 times a day, prior to this was utilizing oxycodone 5 mg approximately 4 times a day. Her last prescription for Percocet 7.5/325 was For #45 pills on 12/24. She is also on gabapentin 600 mg 4 times a day. 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 This change in dose occurred on the day of admission. MEDICATIONS Current Facility-Administered Medications: aluminum-magnesium hydroxide-simethicone 200-200-20 mg/5 mL 30 mL (MAALOX,MYLANTA,MAG-AL PLUS) 30 mL ORAL DAILY PRN Jesus Galindo, DO gabapentin 600 mg cap(s) (NEURONTIN) 600 mg ORAL QID Jesus Galindo, DO 600 mg at 01/05/182038 meclizine 25 mg tab(s) (ANTIVERT) 25 mg ORAL TID PRN Jesus Galindo, DO atorvastatin 40 mg tab(s) (LIPITOR) 40 mg ORAL AT BEDTIME Jesus Galindo, DO 40 mg at 01/05/182039 losartan 100 mg tab(s) (COZAAR) 100 mg ORAL DAILY Jesus Galindo, DO 100 mg at 01/05/18 1100 metoprolol tartrate (short acting) 12.5 mg tab(s) (LOPRESSOR) 12.5 mg ORAL q 12 H Jesus Galindo, DO 12.5 mg at 01/05/182039 amLODIPine 5 mg tab(s) (NORVASC) 5 mg ORAL DAILY Jesus Acostaan, DO 5 mg at 01/05/18 1100 apixaban 5 mg tab(s) (ELIQUIS) 5 mg ORAL BID Jesus Galindo, DO 5 mg at 01/05/182039 insulin lispro pen (rapid acting) (HumaLOG KWIKPEN) SUBCUTANEOUS w MEALS AND HS Jesus Galindo DO 3 Units at 01/05/181712 insulin lispro 22 Units pen (rapid acting) (HumaLOG KWIKPEN) 22 Units SUBCUTANEOUS w MEALS Jesus Galindo DO 22 Units at 01/05/181712 insulin glargine 65 Units pen (long acting) (LANTUS SOLOSTAR, BASAGLAR KWIKPEN) 65 Units SUBCUTANEOUS AT BEDTIME Jesus Galindo DO 65 Units at 01/05/182038 bisacodyl 10 mg suppository (DULCOLAX) 10 mg RECTAL DAILY PRN Jesus Galindo DO baclofen 20 mg tab(s) (LIORESAL) 20 mg ORAL TID Jesus Galindo DO 20 mg at 01/05/182038 amitriptyline 20 mg tab(s) (ELAVIL) 20 mg ORAL AT BEDTIME Jesus Galindo DO 20 mg at 01/05/182039 vancomycin 2 g in D5W 500 mL (VANCOCIN) 0.015 g/kg/dose INTRAVENOUS q 12 HR Jesus Galindo DO Last Rate: 250 mL/hr at 01/06/18 0030 2 g at 01/06/1829 influenza vaccine 180 mcg (Patients 65 years and older) (PF) (FLUZONE HIGH DOSE ) 0.5 mL INTRAMUSCULAR ONCE (IMMUNIZATION) Cheryle Romero oxyCODONE-acetaminophen 5-325 mg 1 tablet (PERCOCET) 1 tablet ORAL TID Jesus Galindo DO 1 tablet at 01/05/182038 miconazole 2 % 1 application topical powder (LOTRIMIN AF, DESENEX) 1 application TOPICAL BID Julio C Obando 1 application at 01/05/182046 Prescriptions Prior to Admission: aspirin 81 mg chewable tablet Take 81 mg by mouth once daily. Disp: Rfl: oxyCODONE-acetaminophen (PERCOCET) 7.5-325 mg tablet Take 1 tablet by mouth three times daily. Disp: Rfl: amLODIPine (NORVASC) 5 mg tablet Take 1 tablet by mouth once daily. Disp: Rfl: atorvastatin (LIPITOR) 40 mg tablet Take 1 tablet by mouth daily at bedtime. Disp: Rfl: bisacodyl (DULCOLAX) 10 mg supp 1 Suppository by RECTAL route once daily as needed. Disp: Rfl: cyclobenzaprine (FLEXERIL) 10 mg tablet Take 1 tablet by mouth three times daily as needed for Muscle Spasm. Disp: Rfl: insulin lispro (HUMALOG KWIKPEN) 100 unit/mL inpn Inject 22 Units subcutaneously w MEALS. Disp: Rfl: insulin lispro (HUMALOG KWIKPEN) 100 unit/mL pen If Blood Glucose (mg/dL) is: Less than 110= 0 units, 111-150= 0 units, 151-200= 3 units, 201-250= 6 units, 251-300= 9 units, 301-350= 12 units, 351-400= 15 units, Greater than 400= 18 units, Disp: Rfl: metoprolol tartrate, short acting, (LOPRESSOR) 25 mg tablet Take 0.5 tablets by mouth every 12 hours. Disp: Rfl: amitriptyline (ELAVIL) 10 mg tablet Take 20 mg by mouth daily at bedtime. Disp: Rfl: miconazole (MONISTAT-DERM,MAY) 2 % cream Apply 1 application to affected area twice daily. Disp: 90 g Rfl: 1 LANTUS SOLOSTAR 100 unit/mL (3 mL) inpn Inject 65 units subcutaneously at bedtime Disp: 10 Pen Rfl: 6 07/19/2017 at Unknown time NOVOLOG FLEXPEN 100 unit/mL inpn Dose varies units with meals, using about 66 total units a day (Patient taking differently: Inject 22 Units subcutaneously three times daily with meals. ) Disp: 10 Pen Rfl: 6 07/20/2017 at Unknown time gabapentin (NEURONTIN) 600 mg tablet 600 mg four times daily. Disp: Rfl: 07/20/2017 at Unknown time NOVOFINE 30 30 gauge x 1/3" ndle 1 Pen Needle four times daily. Disp: 120 Each Rfl: 2 Unknown at Unknown time lidocaine (LIDODERM) 5 % Apply 3 Patches as directed every 12 hours. Two patches to right hip, 1 patch to left thigh Disp: Rfl: Unknown at Unknown time baclofen (LIORESAL) 20 mg tablet 20 mg three times daily. Disp: Rfl: 07/20/2017 at Unknown time losartan (COZAAR) 100 mg tablet Take 100 mg by mouth once daily. Disp: Rfl: 07/20/2017 at Unknown time PAST MEDICAL HISTORY PAST MEDICAL HISTORY Diagnosis Date - Back pain - Foot ulcer (HCC) - Generalized weakness - Hip pain - Hyperlipemia - Hypertension - Morbid obesity (HCC) - Muscle spasm of back - Osteoarthritis - PAF (paroxysmal atrial fibrillation) ([facility]) - Rotator cuff tear - Stroke ([facility]) - Type 2 diabetes mellitus with hyperglycemia ([facility]) PAST SURGICAL HISTORY PAST SURGICAL HISTORY Procedure Laterality Date - APPENDECTOMY - BLADDER SURGERY HX - TONSILLECTOMY HX - TUBAL LIGATION HX ALLERGIES No Known Allergies FAMILY HISTORY Problem Relation Age of Onset - Heart Mother - Diabetes Mother - Stroke Father - Cancer Other - Osteoporosis Other Social History Substance Use Topics - Smoking status: Never Smoker - Smokeless tobacco: Never Used - Alcohol use No Social History Narrative None on file REVIEW OF SYSTEMS: all of the following reviewed and negative except as noted below: GENERAL: no fever, chills, sweats, weight loss, fatigue, generalized weakness HEENT: no headache, vision changes, eye discomfort, hearing change, ear discomfort, sinus pain, nasal discharge or congestion, oral lesions, soreness, dental problem NECK: no adenopathy, discomfort, change in ROM CHEST: no shortness of breath, dyspnea on exertion, wheezing, cough, sputum production or chest pain HEART: no chest pain, palpitations, syncope ABDOMEN: no nausea, vomiting, constipation, diarrhea, abdominal pain : no dysuria, urgency, frequency, history of stones, incontinence NEURO: no confusion or alteration in consciousness, slurred speech, seizure, focal weakness EXTREMITIES: no new pain, edema, change in ROM HEME: no new adenopathy, bruises, petechiae PSYCH: no depression, anxiety, agitation OBJECTIVE PHYSICAL EXAMINATION: see below for new or abnormal findings BP 117/38 Pulse 72 Temp (Src) 97.7 (Temporal Artery) Resp 20 Ht 5' 7" (1.70m) Wt 390 lb 10.5 oz (177.2kg) SpO2 96% BMI 61.17 kg/(m2). GENERAL: well nourished and developed; no acute distress; alert and oriented x 3; intact judgement and insight HEENT: no evidence of trauma; cranial nerves intact; eyes clear EOMI; no hearing deficits apparent; nasal passages unremarkable; throat and mucous membranes clear NECK: supple without lymphadenopathy; no JVD; no thyromegaly CHEST: clear bilaterally to auscultation; normal chest movement; no rales or rhonchi HEART: regular rate and rhythm, normal S1 and S2, no murmurs, clicks, rubs, or gallops ABDOMEN: soft; nondistended; bowel sounds present; no hepatomegaly; no splenomegaly; no tenderness EXTREMITIES: no evidence of clubbing; no cyanosis; no deformity; no joint effusion; no edema NEURO: cranial nerves intact; no focal deficits; no confusion; no tremor; sensorium normal SKIN: no rash; no skin breakdown; no decubitus lesions HEME: no bruising; no adenopathy PSYCH: no evidence of depression; no anxiety; no agitation; no apparent hallucinations DATA: CBC: No results for input(s): WBC, RBC, HB, HCT, PLT, MCV, MCH, MPV, RDW in the last 24 hours. CMP: No results for input(s): NA, K, CHLOR, CO2, BUN, CREAT, GLUC, TPROT, CA, MG, ALBUMIN, TBILI, ALKPHOS, ALT, AST, ANION in the last 24 hours. Heme: No results for input(s): RETICP, ABSRETIC, LD, GISELE, FE, TIBC, TRANSFERSAT in the last 24 hours. 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 Other: PCP Rx at D/C: Yes Rx on chart: No OARRS: Pain Regimen/Notes (Opiate use last 24 hrs): Percocet 5/325 1 tab ?2 PLAN: Urine tox screen. No concerns raised during her interview, but this is being done for monitoring of compliance and expect positivity for opiates only. Adjust opiates: We'll discontinue Percocet for now, utilized oxycodone 15 mg every 3 hours when necessary Doubt she will require a prescription for discharge as she has one available for Percocet 7.5/325 with use up to 4 times a day to be filled post discharge. I am anticipating her opiate need to decrease to this level by discharge We will follow with you Carlos Oro M.D. [facility] NURSING PROGon 01-06-2018 NURSING PROG HNO ID: [id number] Author: Shana (Rn) MATHEUS Yang Service: (none) Author Type: Registered Nurse Type: Nursing Progress Note Filed: 01/06/2018 9:03 PM Note Text: Nursing Progress Note Patient Name: Salazar Coyle Patient Location: [place] [address] [address] Daily Note:spoke with dr. Galindo, notified that ICU was on floor assessing patient at this time, dr. galindo updated the family prior to CT. Will continue to monitor This note was completed by: Shana Yang RN [facility] NURSING PROG HNO ID: [id number] Author: Shana CisnerosRn) MATHEUS Yang Service: (none) Author Type: Registered Nurse Type: Nursing Progress Note Filed: 01/06/2018 9:02 PM Note Text: Nursing Progress Note Patient Name: Salazar Coyle Patient Location: [place] [address]/[id number] Daily Note:patient's bs 66, patient given OJ per protocol, patient able to drink without difficulty, recheck BS was 78, patient becoming lethargic, slurred speech, stroke team called at 1650, dr. galindo notified, stroke team arrived, dr. galindo at bedside, recheck bs 85, vitals signs in flowsheet, stat orders received for CTA head/brain, took patient to ER CT with NSICU nurses and special ops, arrive back to floor with patient, ICU on floor to see patient. Patient remains lethargic at this time. Will continue to monitor, see assessment at 1625 in flowsheets This note was completed by: Shana Yang RN [facility] PROGRESSon 01-06-2018 PROGRESS HNO ID: [id number] Author: Jesus Galindo DO Service: Hospital Medicine Author Type: Physician Type: Progress Notes Filed: 01/06/2018 5:34 PM Note Text: Notified by nursing patient had low BS. Insulin was held. Called back soon after by nursing that patient was acting differently more confused/sedated and less responsive not following commands. Due to acute change stroke team called. I came to the floor to examine the patient. Exam: Gen:alert but not responding approprietly. Appears to have new aphasia. Ext withdraws UE to pain and moves RLE, not moving LLE. Not responding to pressure to R foot which previously hurt her Neuro:Aphasia/garbles speech. Not following commands, withdraws as above. Moves RLE and hands at times Trace anterior wheezing RRR S1 S2 Abd soft, Obese A/P: New confusion/aphasia concerning for CVA Stroke team called, no ASA for now per neurology, Discussed w/ Dr. Alfonso and plan for stat CT brain attack. Pt not candidate for TPA due to already on anticoagulation Check ABG and general labs and TSH Per chart review in September she was DNR/DNI after discussing with palliative care team. I spoke to her Jesus who agrees w/ honoring the patient's wishes should arrest event occur. I did go over risks/benefits and likely outcomes in the event that resuscitation measures were needed. [facility] PROGRESS HNO ID: [id number] Author: Jesus Galindo DO Service: Hospital Medicine Author Type: Physician Type: Progress Notes Filed: 01/06/2018 8:35 AM Note Text: DEPARTMENT OF HOSPITAL MEDICINE PROGRESS NOTE SERVICE DATE: 01/06/2018 SERVICE TIME: 8:28 AM Hospital Medicine/Primary Attending: Jesus Galindo, NIGHT AND WEEKEND COVERAGE: After 7pm please page [phone] SUBJECTIVE: Patient seen and examined at bedside. No new complaints. Per nursing has been having consistent bladder leakage and new wounds noticed in the upper thighs. She otherwise has no complaints. OBJECTIVE: PHYSICAL EXAM: BP 128/43 Pulse 75 Temp (Src) 98.8 (Oral) Resp 20 Ht 5' 7" (1.70m) Wt 390 lb 10.5 oz (177.2kg) SpO2 94% BMI 61.17 kg/(m2). General - AANDOx3, NAD, Calm, morbidly obese ENT- no icterus, MMM CV - RRR S1 S2, No M/R/G RESP - CTA B/L No wheezes, ronchi, rales ABD - soft, NT, ND, NM +BS Neuro- Conversant, follows commands, moves all ext, gross sensation intact No dysarthria Ext:Non-tender, no edema, wounds on b/l upper thighs dorsal side and medial. B/L shins worse on R side. Skin: see ext. Psych: appropriate mood and affect MEDICATIONS: Current hospital medications: oxyCODONE IR 10-15 mg tab(s) (ROXICODONE) 10-15 mg ORAL q 3 H PRN aluminum-magnesium hydroxide-simethicone 200-200-20 mg/5 mL 30 mL (MAALOX,MYLANTA,MAG-AL PLUS) 30 mL ORAL DAILY PRN gabapentin 600 mg cap(s) (NEURONTIN) 600 mg ORAL QID meclizine 25 mg tab(s) (ANTIVERT) 25 mg ORAL TID PRN atorvastatin 40 mg tab(s) (LIPITOR) 40 mg ORAL AT BEDTIME losartan 100 mg tab(s) (COZAAR) 100 mg ORAL DAILY metoprolol tartrate (short acting) 12.5 mg tab(s) (LOPRESSOR) 12.5 mg ORAL q 12 H amLODIPine 5 mg tab(s) (NORVASC) 5 mg ORAL DAILY apixaban 5 mg tab(s) (ELIQUIS) 5 mg ORAL BID insulin lispro pen (rapid acting) (HumaLOG KWIKPEN) SUBCUTANEOUS w MEALS AND HS insulin lispro 22 Units pen (rapid acting) (HumaLOG KWIKPEN) 22 Units SUBCUTANEOUS w MEALS insulin glargine 65 Units pen (long acting) (LANTUS SOLOSTAR, BASAGLAR KWIKPEN) 65 Units SUBCUTANEOUS AT BEDTIME bisacodyl 10 mg suppository (DULCOLAX) 10 mg RECTAL DAILY PRN baclofen 20 mg tab(s) (LIORESAL) 20 mg ORAL TID amitriptyline 20 mg tab(s) (ELAVIL) 20 mg ORAL AT BEDTIME vancomycin 2 g in D5W 500 mL (VANCOCIN) 0.015 g/kg/dose INTRAVENOUS q 12 HR influenza vaccine 180 mcg (Patients 65 years and older) (PF) (FLUZONE HIGH DOSE 2017-) 0.5 mL INTRAMUSCULAR ONCE (IMMUNIZATION) miconazole 2 % 1 application topical powder (LOTRIMIN AF, DESENEX) 1 application TOPICAL BID DATA: Diagnostic tests reviewed for today's visit: CBC: No results for input(s): WBC, RBC, HB, HCT, PLT, MCV, MCH, MPV, RDW in the last 24 hours. Coags: No results for input(s): INR, APTT in the last 24 hours. Invalid input(s): PT BMP: No results for input(s): NA, K, CHLOR, CO2, BUN, CREAT, GLUC in the last 24 hours. CMP: No results for input(s): NA, K, CHLOR, CO2, BUN, CREAT, GLUC, TPROT, CA, MG, ALBUMIN, TBILI, ALKPHOS, ALT, AST, ANION in the last 24 hours. Cardiac Enzymes: No results for input(s): CK, MB, CKMB, TROPT in the last 24 hours. Liver Function, Amylase, Lipase: No results for input(s): TPROT, ALB, ALT, AST, ALKPHOS, TBILI, AMYLASE, LIPASE, LACTATE in the last 24 hours. MG/PHOS: No results for input(s): MG, P in the last 24 hours. Renal Panel: No results for input(s): ALBUMIN, CREAT, BUN, GLUC, CA, P, CHLOR, K, CO2, NA in the last 24 hours. Heme: No results for input(s): RETICP, ABSRETIC, LD, GISELE, FE, TIBC, TRANSFERSAT in the last 24 hours. No results found for: UALBCR Assessment/Plan This is a 67yo F w/ ? #B/L LE cellulitis #Decubitus and LE wounds, diabetic vs pressure -Bariatric dolphin bed, jose in place to due to bladder leakage which will prevent wound healing -Vancomycin -consult ID to eval -Wound care consult -MRSA nares pending #Neurogenic bladder w/ overflow incont -Jose placed w/ immediate 500ml+ output -Urology consulted as pt needs urologist and may benefit from OP straight cath vs continued jose at d/c. ? #Hypoxia mild- no complaints of hypoxia suspect obesity hypovent -CXR neg, wean O2 as tolerated. ? #Type 2 diabetes mellitus with hyperglycemia ([facility]) -cont home insulin reg ? #Hypertension-well controlled at this time -cont home meds ? #Morbid obesity BMI 60.0-69.9, adult ([facility])- order specialty bed ? #PAF (paroxysmal atrial fibrillation) ([facility])-monitor on tele #Hx of recent CVA Stroke ([facility])- cont statin and Eliquis, social work consulted to assist with getting med. ? #Patient noncompliant with anticoagulant medication in the past due to cost-se above ? #Osteoarthritis #Chronic pain-consult pain management, cont home meds VTE Prophylaxis: VTE prophylaxis appropriate Disposition: TBD Plan of care discussed with: Patient SIGNATURE: Jesus Galindo DO PATIENT NAME: Salazar Coyle DATE: January 06, 2018 TIME: 8:28 AM PAGER/CONTACT #: My Pager Normal [facility] ALLIED HEALTHon 01-05-2018 ALLIED HEALTH HNO ID: [id number] Author: Nneka Rivera (Chaplain), Student Service: Spiritual Care Author Type: Skein Dyer Type: Allied Health Filed: 01/05/2018 2:13 PM Note Text: SPIRITUALCARE Spiritual Care Visit- Brief Note Name: Salazar Coyle Date: January 05, 2018 Notes: Infectious sores on her feet and legs. Appreciated the visit and prayer for herself, daughter, and granddaughter. Spiritual Care appreciated. Skein Dyer Signature: Chaplain Izzy To contact the [facility] Department: Please call [phone] or Page the On-Call Skein Dyer at pager [phone] Thank you for the opportunity to be of service. This is an electronically created document. IF PRINTED, PLEASE DO NOT REMOVE FROM THE CHART OR MODIFY PRINTED COPY. [facility] CONSULTon 01-05-2018 CONSULT HNO ID: [id number] Author: Julio C Obando Service: Infectious Disease Author Type: Physician Type: Consults Filed: 01/05/2018 12:45 PM Note Text: Seen [id number]; [id number] Cont vanco ; when better, use amox 500tid and doxy 100bid at home Julio C Obando MD 01/05/2018 12:45 PM pgr [phone] [facility] ED NOTEon 01-05-2018 ED NOTE HNO ID: [id number] Author: Irene CisnerosRn) MATHEUS Conroy Service: Emergency Medicine Author Type: Registered Nurse Type: ED Notes Filed: 01/05/2018 7:07 AM Note Text: Attempted to call twice with no answer from TCU [facility] ED NOTE HNO ID: [id number] Author: Irene (Rn) Rafiq RN Service: Emergency Medicine Author Type: Registered Nurse Type: ED Notes Filed: 01/05/2018 6:10 AM Note Text: Pt reassessed and revitaled per policy without any change in the initial assessment. [facility] ED NOTE HNO ID: [id number] Author: Irene Hammond) Rafiq RN Service: Emergency Medicine Author Type: Registered Nurse Type: ED Notes Filed: 01/05/2018 4:34 AM Note Text: Pt reassessed and revitaled per policy without any change in the initial assessment. [facility] HISTORY PHYSICALon 8 HISTORY PHYSICAL HNO ID: [id number] Author: Jesus Galindo DO Service: Hospital Medicine Author Type: Physician Type: HANDP Filed: 01/05/2018 8:58 AM Note Text: DEPARTMENT OF HOSPITAL MEDICINE HISTORY AND PHYSICAL EXAM SERVICE DATE: 01/05/2018 SERVICE TIME: 8:23 AM Primary Care Physician: No primary care provider on file. NIGHT AND WEEKEND COVERAGE: From 7am - 7pm, please call sound After 7pm, please call cross cover pager #[phone] Subjective CHIEF COMPLAINT: Leg wounds HPI: This is a 67 year old female who presented with worsening LE pain and wounds. She has had prior LE ankle wounds and now was having redness and pain over her R lyons. She denies any other acute complaints including N/V/D/F/C/SOB/CP/COFFMAN/LOC. She did require 2L O2 in the ER to maintain her O2 sats. She was admitted 3 months ago for AMS and was found to have stroke. She has A-fib and is currently anticoagulated. The patient has persistent R arm weakness due to stroke and RLE weakness/chronic pain due to old injury. She does follow her wounds in wound care clinic. PAST MEDICAL HISTORY Diagnosis Date - Back pain - Foot ulcer (HCC) - Generalized weakness - Hip pain - Hyperlipemia - Hypertension - Morbid obesity ([facility]) - Muscle spasm of back - Osteoarthritis - PAF (paroxysmal atrial fibrillation) ([facility]) - Rotator cuff tear - Stroke ([facility]) - Type 2 diabetes mellitus with hyperglycemia ([facility]) PAST SURGICAL HISTORY Procedure Laterality Date - APPENDECTOMY - BLADDER SURGERY HX - TONSILLECTOMY HX - TUBAL LIGATION HX FAMILY HISTORY Problem Relation Age of Onset - Heart Mother - Diabetes Mother - Stroke Father - Cancer Other - Osteoporosis Other Social History Substance Use Topics - Smoking status: Never Smoker - Smokeless tobacco: Never Used - Alcohol use No MEDICATIONS: Reviewed see MRF Prescriptions Prior to Admission: aluminum-magnesium hydroxide-simethicone (MAALOX,MYLANTA,MAG-AL PLUS) 200-200-20 mg/5 mL suspension Take 30 mL by mouth once daily as needed. Disp: Rfl: amLODIPine (NORVASC) 5 mg tablet Take 1 tablet by mouth once daily. Disp: Rfl: atorvastatin (LIPITOR) 40 mg tablet Take 1 tablet by mouth daily at bedtime. Disp: Rfl: bisacodyl (DULCOLAX) 10 mg supp 1 Suppository by RECTAL route once daily as needed. Disp: Rfl: cyclobenzaprine (FLEXERIL) 10 mg tablet Take 1 tablet by mouth three times daily as needed for Muscle Spasm. Disp: Rfl: insulin lispro (HUMALOG KWIKPEN) 100 unit/mL inpn Inject 22 Units subcutaneously w MEALS. Disp: Rfl: insulin lispro (HUMALOG KWIKPEN) 100 unit/mL pen If Blood Glucose (mg/dL) is: Less than 110= 0 units, 111-150= 0 units, 151-200= 3 units, 201-250= 6 units, 251-300= 9 units, 301-350= 12 units, 351-400= 15 units, Greater than 400= 18 units, Disp: Rfl: metoprolol tartrate, short acting, (LOPRESSOR) 25 mg tablet Take 0.5 tablets by mouth every 12 hours. Disp: Rfl: polyethylene glycol 3350 (MIRALAX, GLYCOLAX) 17 gram packet Take 1 Packet by mouth once daily as needed. Disp: Rfl: meclizine (ANTIVERT) 25 mg tab Take 1 tablet by mouth three times daily as needed (dizziness). Disp: Rfl: amitriptyline (ELAVIL) 10 mg tablet Take 20 mg by mouth daily at bedtime. Disp: Rfl: apixaban (ELIQUIS) 5 mg tab(s) Take 1 tablet by mouth twice daily. Disp: 60 tablet Rfl: 0 miconazole (MONISTAT-DERM,MAY) 2 % cream Apply 1 application to affected area twice daily. Disp: 90 g Rfl: 1 LANTUS SOLOSTAR 100 unit/mL (3 mL) inpn Inject 65 units subcutaneously at bedtime Disp: 10 Pen Rfl: 6 07/19/2017 at Unknown time NOVOLOG FLEXPEN 100 unit/mL inpn Dose varies units with meals, using about 66 total units a day (Patient taking differently: Inject 22 Units subcutaneously three times daily with meals. ) Disp: 10 Pen Rfl: 6 07/20/2017 at Unknown time gabapentin (NEURONTIN) 600 mg tablet 600 mg four times daily. Disp: Rfl: 07/20/2017 at Unknown time NOVOFINE 30 30 gauge x 1/3" ndle 1 Pen Needle four times daily. Disp: 120 Each Rfl: 2 Unknown at Unknown time lidocaine (LIDODERM) 5 % Apply 3 Patches as directed every 12 hours. Two patches to right hip, 1 patch to left thigh Disp: Rfl: Unknown at Unknown time baclofen (LIORESAL) 20 mg tablet 20 mg three times daily. Disp: Rfl: 07/20/2017 at Unknown time losartan (COZAAR) 100 mg tablet Take 100 mg by mouth once daily. Disp: Rfl: 07/20/2017 at Unknown time ALLERGIES No Known Allergies REVIEW OF SYSTEM: All ROS reviewed and negative unless otherwise noted in HPI. Objective PHYSICAL EXAM: BP 139/58 Pulse 95 Temp (Src) 97.3 (Oral) Resp 17 Ht 5' 7" (1.70m) Wt 390 lb (176.9kg) SpO2 94% BMI 61.07 kg/(m2). Physical Exam Performed: GENERAL: Alert, no distress, cooperative SKIN: Skin color, texture, turgor normal. No rashes or lesions. HEAD/SINUSES: No significant findings EYES: PERRLA, EOMI EARS: External ears normal, canals clear NOSE: Nares normal. Septum midline. OROPHARYNX: Lips, mucosa, and tongue normal. Teeth and gums normal. Oropharynx normal. NECK: No jugulovenous distention, No carotid bruits, Carotid pulse normal contour, Supple BACK: Back symmetric, Normal curvature, ROM normal, No CVAT. LUNGS: Lungs clear to auscultation, Good diaphragmatic excursion CARDIAC: Normal S1 and S2; no rubs, murmurs, or gallops ABDOMEN: Abdomen soft, non-tender, BS normal, No masses or organomegaly EXTREMITIES: Extremities normal, no deformities, edema, clubbing or skin discoloration. Good capillary refill., No ulcers NEURO: Gait normal. Reflexes normal and symmetric. Sensation grossly intact, Cranial nerves II-XII intact Lines, Drains, and Airways No matching active lines, drains, or airways DATA: Diagnostic tests reviewed for today's visit: Most recent labs and imaging results. Results for SALAZAR COYLE ( ) as of 01/05/2018 08:34 Ref. Range 01/04/2018 22:00 Sodium Latest Ref Range: 136 - 145 mEq/L 142 Potassium Latest Ref Range: 3.5 - 5.1 mEq/L 4.0 Chloride Latest Ref Range: 98 - 107 mEq/L 105 CO2 Latest Ref Range: 21 - 32 mEq/L 31 BUN Latest Ref Range: 7 - 18 mg/dL 13 Creatinine Latest Ref Range: 0.51 - 0.95 mg/dL 0.69 Glucose Latest Ref Range: 70 - 99 mg/dL 183 (H) Calcium Latest Ref Range: 8.5 - 10.1 mg/dL 8.4 (L) Anion Gap Latest Ref Range: 8 - 16 10 eGFR Latest Ref Range: >60mL/min/1.73m2 >60 Lactic Acid Latest Ref Range: 0.4 - 2.0 mEq/L 1.9 Hematocrit Latest Ref Range: 34.1 - 44.9 % 36.3 WBC Latest Ref Range: 3.98 - 10.04 thou/cmm 10.75 (H) RBC Latest Ref Range: 3.93 - 5.22 mil/cmm 3.70 (L) HGB Latest Ref Range: 11.2 - 15.7 g/dL 11.4 Platelet Count Latest Ref Range: 182 - 369 thou/cmm 235 MCV Latest Ref Range: 79.4 - 94.8 fl 98.1 (H) MCH Latest Ref Range: 25.6 - 32.2 pg 30.8 MCHC Latest Ref Range: 31.6 - 34.8 % 31.4 (L) MPV Latest Ref Range: 9.4 - 12.3 fl 11.3 RDW-SD Latest Ref Range: 36.4 - 46.3 fl 54.4 (H) Seg Neutrophil Latest Units: % 71.5 Lymphocyte Latest Units: % 17.2 Monocyte Latest Units: % 7.3 Eosinophil Latest Units: % 3.3 Basophil Latest Units: % 0.4 Abs. Baso Latest Ref Range: 0.01 - 0.08 thou/cmm 0.04 Abs. Eosin Latest Ref Range: 0.00 - 0.31 thou/cmm 0.35 (H) Immature Grans Latest Units: % 0.30 Immature Grans # Latest Ref Range: 0.00 - 0.05 thou/cmm 0.03 Abs. Lymph Latest Ref Range: 1.18 - 3.74 thou/cmm 1.85 Abs. [place] Latest Ref Range: 0.27 - 0.70 thou/cmm 0.78 (H) RDW Latest Ref Range: 11.7 - 14.4 % 15.2 (H) Abs. Neut(Anc) Latest Ref Range: 1.56 - 6.13 thou/cmm 7.69 (H) Will order XR Assessment/Plan This is a 67yo F w/ #B/L LE cellulitis #Decubitus and LE wounds, diabetic vs pressure -Air mattress -Vancomycin -consult ID to eval -Wound care consult -check MRSA nares #Hypoxia mild- no complaints of hypoxia suspect obesity hypovent -check CXR #Type 2 diabetes mellitus with hyperglycemia (HCC) -cont home insulin reg #Hypertension-well controlled at this time -cont home meds #Morbid obesity BMI 60.0-69.9, adult (HCC)- order specialty bed #PAF (paroxysmal atrial fibrillation) ([facility])-monitor on tele #Hx of recent CVA Stroke ([facility])- cont statin and Eliquis #Patient noncompliant with anticoagulant medication in the past #Osteoarthritis #Chronic pain-consult pain management, cont home meds VTE Prophylaxis: VTE prophylaxis appropriate Disposition: TBD Plan of care discussed with: Patient SIGNATURE: Jesus Galindo DO PATIENT NAME: Salazar Coyle DATE: January 05, 2018 TIME: 8:23 AM PAGER/CONTACT #: [phone] [facility] Vital Signs Date Time Vital Sign Value Performing Clinician [facility] 02-04-2025 08:03-0500 Body temperature 97 [degF] Mario Portillo MD Work Phone: [facility] 02-04-2025 08:03-0500 Diastolic blood pressure 77 mm[Hg] Mario Portillo MD Work Phone: [facility] 02-04-2025 08:03-0500 Heart rate 91 /min Mario Portillo MD Work Phone: [facility] 02-04-2025 08:03-0500 Respiratory rate 16 /min Mario Portillo MD Work Phone: [facility] 02-04-2025 08:03-0500 SaO2% (BldA) [Mass fraction] 96 % Mario Portillo MD Work Phone: [facility] 02-04-2025 08:03-0500 Systolic blood pressure 141 mm[Hg] Mario Portillo MD Work Phone: [facility] 01-30-2025 12:22-0400 Body height 165.1 cm Mario Portillo MD Work Phone: [facility] 10-18-2024 08:24-0400 Diastolic blood pressure 85 mm[Hg] Sravan Mercedes MD Work Phone: [facility] [employer] 10-18-2024 08:24-0400 Heart rate 70 /min Sravan Mercedes MD Work Phone: [facility] [employer] 10-18-2024 08:24-0400 SaO2% (BldA) [Mass fraction] 92 % Sravan Mercedes MD Work Phone: [facility] [employer] 10-18-2024 08:24-0400 Systolic blood pressure 115 mm[Hg] Sravan Mercedes MD Work Phone: [facility] [employer] 10-18-2024 08:00-0400 Body temperature 96.4 [degF] Sravan Mercedes MD Work Phone: [facility] [employer] 10-18-2024 08:00-0400 Respiratory rate 20 /min Sravan Mercedes MD Work Phone: [facility] [employer] 10-18-2024 05:00-0400 Body mass index (BMI) [Ratio] 59.74 kg/m2 Sravan Mercedes MD Work Phone: [facility] [employer] 10-18-2024 05:00-0400 Body weight 162.84 kg Sarvan Mercedes MD Work Phone: [facility] [employer] 10-10-2024 10:09-0400 Body height 165.1 cm Sravan Mercedes MD Work Phone: [facility] [employer] 01-03-2024 14:00-0400 Diastolic blood pressure 70 mm[Hg] Bashir Vásquez MD Work Phone: [employer] 01-03-2024 14:00-0400 Heart rate 70 /min Bashir Vásquez MD Work Phone: [employer] 01-03-2024 14:00-0400 Respiratory rate 14 /min Bashir Vásquez MD Work Phone: [employer] 01-03-2024 14:00-0400 SaO2% (BldA) [Mass fraction] 97 % Bashir Vásquez MD Work Phone: [employer] 01-03-2024 14:00-0400 Systolic blood pressure 173 mm[Hg] Bashir Vásquez MD Work Phone: [employer] 01-03-2024 13:00-0400 Body temperature 97.2 [degF] Bashir Vásquez MD Work Phone: [facility] [employer] 11-29-2023 17:25-0400 Body temperature 97.3 [degF] Juan Cervantes MD Work Phone: [facility] [employer] 11-29-2023 17:25-0400 Diastolic blood pressure 48 mm[Hg] Juan Cervantes MD Work Phone: [facility] [employer] 11-29-2023 17:25-0400 Heart rate 59 /min Juan Cervantes MD Work Phone: [facility] [employer] 11-29-2023 17:25-0400 Respiratory rate 16 /min Juan Cervantes MD Work Phone: [facility] [employer] 11-29-2023 17:25-0400 SaO2% (BldA) [Mass fraction] 92 % Juan Cervantes MD Work Phone: [facility] [employer] 11-29-2023 17:25-0400 Systolic blood pressure 153 mm[Hg] Juan Cervantes MD Work Phone: [facility] [employer] 11-26-2023 13:51-0400 Body height 165.1 cm Juan Cervantes MD Work Phone: [facility] [employer] 11-24-2023 02:44-0400 Body mass index (BMI) [Ratio] 57.01 kg/m2 Juan Cervantes MD Work Phone: [facility] [employer] 11-24-2023 02:44-0400 Body weight 155.4 kg Juan Cervantes MD Work Phone: [facility] [employer] 09-27-2023 16:40-0400 Diastolic blood pressure 68 mm[Hg] Bashir Vásquez MD Work Phone: [facility] [employer] 09-27-2023 16:40-0400 Heart rate 59 /min Bashir Vásquez MD Work Phone: [facility] [employer] 09-27-2023 16:40-0400 Respiratory rate 11 /min Bashir Vásquez MD Work Phone: [facility] [employer] 09-27-2023 16:40-0400 SaO2% (BldA) [Mass fraction] 96 % Bashir Vásquez MD Work Phone: [facility] [employer] 09-27-2023 16:40-0400 Systolic blood pressure 127 mm[Hg] Bashir Vásquez MD Work Phone: [facility] [employer] 09-27-2023 11:57-0400 Body temperature 97.11 [degF] Bashir Vásquez MD Work Phone: [facility] [employer] 09-27-2023 10:16-0400 Body height 165.1 cm Bashir Vásquez MD Work Phone: [facility] [employer] 09-27-2023 10:16-0400 Body mass index (BMI) [Ratio] 58.24 kg/m2 Bashir Vásquez MD Work Phone: [facility] [employer] 09-27-2023 10:16-0400 Body weight 158.76 kg Bashir Vásquez MD Work Phone: [facility] [employer] 08-09-2023 12:00-0400 Body temperature 98.4 [degF] Cesario Lemon MD Work Phone: [facility] [employer] 08-09-2023 12:00-0400 Heart rate 64 /min Cesario Lemon MD Work Phone: [facility] [employer] 08-09-2023 12:00-0400 Respiratory rate 14 /min Cesario Lemon MD Work Phone: [facility] [employer] 08-09-2023 12:00-0400 SaO2% (BldA) [Mass fraction] 100 % Cesario Lemon MD Work Phone: [facility] [employer] 08-09-2023 08:04-0400 Diastolic blood pressure 110 mm[Hg] Cesario Lemon MD Work Phone: [facility] [employer] 08-09-2023 08:04-0400 Systolic blood pressure 127 mm[Hg] Cesario Lemon MD Work Phone: [facility] [employer] 08-06-2023 07:33-0400 Body height 165.1 cm Cesario Lemon MD Work Phone: [facility] [employer] 08-02-2023 04:27-0400 SaO2% (BldA) [Mass fraction] 96.8 % Cesario Lemon MD Work Phone: [employer] 07-31-2023 09:05-0400 Body mass index (BMI) [Ratio] 58.24 kg/m2 Cesario Lemon MD Work Phone: [employer] 07-31-2023 09:05-0400 Body weight 158.76 kg Cesario Lemon MD Work Phone: [employer] 01-11-2023 07:50-0400 Body temperature 96.8 [degF] Fahad Nesheim DO Work Phone: [employer] 01-11-2023 07:50-0400 Diastolic blood pressure 46 mm[Hg] Fahad Nesheim DO Work Phone: [employer] 01-11-2023 07:50-0400 Heart rate 46 /min Fahad Nesheim DO Work Phone: [facility] [employer] 01-11-2023 07:50-0400 Respiratory rate 22 /min Fahad Nesheim DO Work Phone: [employer] 01-11-2023 07:50-0400 SaO2% (BldA) [Mass fraction] 97 % Fahad Nesheim DO Work Phone: [facility] [employer] 01-11-2023 07:50-0400 Systolic blood pressure 119 mm[Hg] Fahad Nesheim DO Work Phone: [facility] [employer] 01-08-2023 03:25-0400 Body mass index (BMI) [Ratio] 51.74 kg/m2 Fahad Nesheim DO Work Phone: [employer] 01-08-2023 03:25-0400 Body weight 145.33 kg Fahad Nesheim DO Work Phone: [employer] 08-07-2022 08:38-0400 Body temperature 96.3 [degF] Carlos Ayala DO Work Phone: [employer] 08-07-2022 08:38-0400 Diastolic blood pressure 41 mm[Hg] Carlos Ayala DO Work Phone: [facility] [employer] 08-07-2022 08:38-0400 Heart rate 70 /min Carlos Ayala DO Work Phone: [facility] [employer] 08-07-2022 08:38-0400 Respiratory rate 18 /min Carlos Ayala DO Work Phone: [facility] [employer] 08-07-2022 08:38-0400 SaO2% (BldA) [Mass fraction] 99 % Carlos Ayala DO Work Phone: [facility] [employer] 08-07-2022 08:38-0400 Systolic blood pressure 111 mm[Hg] Carlos Ayala DO Work Phone: [facility] [employer] 08-03-2022 08:48-0400 Body height 167.6 cm Carlos Ayala DO Work Phone: [facility] [employer] 08-02-2022 15:28-0400 Body mass index (BMI) [Ratio] 55.39 kg/m2 Carlos Ayala DO Work Phone: [facility] [employer] 08-02-2022 15:28-0400 Body weight 155.58 kg Carlos Ayala DO Work Phone: [facility] [employer] 07-31-2022 19:00-0400 Body mass index (BMI) [Ratio] 55.51 kg/m2 Annette Bejarano DO Work Phone: [facility] [employer] 07-31-2022 19:00-0400 Body weight 156 kg Annette Knutsons DO Work Phone: [facility] [employer] 07-11-2022 21:00-0400 Body mass index (BMI) [Ratio] 55.52 kg/m2 Annette Knutsons DO Work Phone: [employer] 07-11-2022 21:00-0400 Body weight 156.04 kg Annette Knutsons DO Work Phone: [facility] [employer] 06-16-2022 03:57-0400 Body temperature 97.5 [degF] Hood Nina DO Work Phone: [facility] [employer] 06-16-2022 03:57-0400 Heart rate 66 /min Hood Wood DO Work Phone: [facility] [employer] 06-16-2022 03:57-0400 Respiratory rate 17 /min Hood Wood DO Work Phone: [facility] [employer] 06-16-2022 03:57-0400 SaO2% (BldA) [Mass fraction] 91 % Hood Wood DO Work Phone: [facility] [employer] 06-15-2022 19:59-0400 Diastolic blood pressure 74 mm[Hg] Hood Wood DO Work Phone: [facility] [employer] 06-15-2022 19:59-0400 Systolic blood pressure 140 mm[Hg] Hood Wood DO Work Phone: [facility] [employer] 06-15-2022 13:28-0400 Body height 167.6 cm Hood Wood DO Work Phone: [facility] [employer] 06-15-2022 09:00-0400 Body mass index (BMI) [Ratio] 55.62 kg/m2 Hood Wood DO Work Phone: [facility] [employer] 06-15-2022 09:00-0400 Body weight 156.3 kg Hood Wood DO Work Phone: [facility] [employer] 04-15-2021 08:12-0500 Body temperature 97.39 [degF] Kamran Cassidy MD Work Phone: [facility] 04-15-2021 08:12-0500 Diastolic blood pressure 59 mm[Hg] Kamran Cassidy MD Work Phone: [facility] 04-15-2021 08:12-0500 Heart rate 74 /min Kamran Cassdiy MD Work Phone: [facility] 04-15-2021 08:12-0500 Respiratory rate 16 /min Kamran Cassidy MD Work Phone: [facility] 04-15-2021 08:12-0500 SaO2% (BldA) [Mass fraction] 95 % Kamran Cassidy MD Work Phone: [facility] 04-15-2021 08:12-0500 Systolic blood pressure 128 mm[Hg] Kamran Cassidy MD Work Phone: [facility] 04-09-2021 06:50-0500 Body mass index (BMI) [Ratio] 71.2 kg/m2 Kamran Cassidy MD Work Phone: [facility] 04-09-2021 06:50-0500 Body weight 176.59 kg Kamran Cassidy MD Work Phone: [facility] 04-08-2021 22:58-0500 Body weight 178.7184 kg [employer] Comment on above: Performed By: #### [id number], [id number] ####[facility] [employer] [id number] [place] [address] 03-18-2021 17:49-0500 Body height 157.5 cm Kamran Cassidy MD Work Phone: [facility] 02-10-2021 15:30-0500 Body temperature 99.14 [degF] Diego Gunning Other Phone: [facility] Other Phone (unformatted): [phone] 02-10-2021 15:30-0500 Diastolic blood pressure 65 mm[Hg] Diego Gunning Other Phone: [facility] Other Phone (unformatted): [phone] 02-10-2021 15:30-0500 Heart rate 73 /min Diego Gunning Other Phone: [facility] Other Phone (unformatted): [phone] 02-10-2021 15:30-0500 SaO2% (BldA) [Mass fraction] 95 % Diego Gunning Other Phone: [facility] Other Phone (unformatted): [phone] 02-10-2021 15:30-0500 Systolic blood pressure 148 mm[Hg] Diego Gunning Other Phone: [facility] Other Phone (unformatted): [phone] 02-10-2021 07:06-0500 Respiratory rate 18 /min Diego Elmore Other Phone: [facility] Other Phone (unformatted): [phone] 02-06-2021 11:18-0500 Body temperature 98.42 [degF] Diego Elmore Other Phone: [facility] 02-06-2021 11:18-0500 Diastolic blood pressure 74 mm[Hg] Diego Kylening Other Phone: [facility] 02-06-2021 11:18-0500 Heart rate 84 /min Diego Kylening Other Phone: [facility] 02-06-2021 11:18-0500 Respiratory rate 18 /min Diego Elmore Other Phone: [facility] 02-06-2021 11:18-0500 SaO2% (BldA) [Mass fraction] 92 % Diego Elmore Other Phone: [facility] 02-06-2021 11:18-0500 Systolic blood pressure 150 mm[Hg] Diego Elmore Other Phone: [facility] 08-06-2019 07:19-0400 Body temperature 37.0 {degrees_C} Patricia King [facility] Internal Medicine Work Phone: Comment on above: NOTE: PATIENT RESULTS ARE NOT CORRECTED FOR TEMPERATURE. Order[place]: [place] [id number] 08-06-2019 00:17-0400 Body temperature 37.0 {degrees_C} Patricia King [facility] Internal Medicine Work Phone: Comment on above: NOTE: PATIENT RESULTS ARE NOT CORRECTED FOR TEMPERATURE. [place]: [place] [id number] 07-02-2018 17:39-0400 Body temperature 37.0 [facility] Comment on above: Performed By: #### CBC1 #### [address] [address] Encounters Encounter Date Encounter Type Care Provider Facility Start: 01-29-2025 End: 02-04-2025 Evaluation and management of inpatient Mario Portillo MD Work Phone: [facility] Medical Surgical Unit MSU 4S Comment on above: Lymphedema of both l ower extremities (Primary Dx); Encephalopathy; Urinary tract infection without hematuria, site unspecified; Cellulitis of right lower limb Start: 11-24-2024 ambulatory Jeffry Matthewdalton Parker ity:[facility] Start: 10-09-2024 End: 10-18-2024 Evaluation and management of inpatient Sravan Mercedes MD Work Phone: [facility] Medical Surgical Unit MSU 4S Start: 02-25-2024 End: 02-25-2024 Office outpatient visit 15 minutes Bashir Vásquez MD Work Phone: [facility] Urology [facility] Comment on above: Renal calculus, left (Primary Dx); Chronic indwelling Jose catheter Start: 02-25-2024 End: 02-25-2024 ambulatory BASHIR VÁSQUEZ [facility] Start: 01-03-2024 End: 01-03-2024 Subsequent hospital visit by physician Bashir Vásquez MD Work Phone: [facility] Comment on above: Left ureteral calcul us (Primary Dx) Start: 01-02-2024 End: 01-04-2024 Telephone encounter Bashir Vásquez MD Work Phone: [facility] Comment on above: Other (Procedure) Start: 11-25-2023 End: 11-28-2023 Telephone encounter Bashir Vásquez MD Work Phone: [facility] Comment on above: Post-op Follow-up; H ospital Follow-up Start: 11-22-2023 End: 11-29-2023 Evaluation and management of inpatient Juan Cervantes MD Work Phone: [facility] Respiratory Unit 7W Start: 09-27-2023 End: 10-04-2023 Telephone encounter Odette Hugo [facility] Comment on above: Care Coordination Ou treach; Transportation Issues Other; Cancelled Leonidas ointment Start: 09-27-2023 End: 09-27-2023 Subsequent hospital visit by physician Bashir Vásquez MD Work Phone: [facility] Comment on above: Ureteropelvic juncti on calculus (Primary Dx) Start: 09-26-2023 End: 09-26-2023 [facility] Start: 07-30-2023 End: 08-09-2023 Evaluation and management of inpatient Cesario Lemon MD Work Phone: [facility] Intensive Care Unit ICU 2 Start: 01-08-2023 End: 01-11-2023 Emergency department patient visit Fahad Champion DO Work Phone: [facility] Cardiac Progressive Care Unit PCU 2E Comment on above: Radicular pain in ri ght arm (Primary Dx); Neck muscle spasm; Cystitis; 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); Degenerative disc disease, cervical Start: 08-02-2022 End: 08-07-2022 Evaluation and management of inpatient Carlos Bone Jamie DO Work Phone: [facility] Comment on above: 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, initial encounter (HCC) (Primary Dx); Chronic kidney disease, unspecified CKD stage; Other chronic pain Start: 07-31-2022 ambulatory Annette longoria DO Work Phone: [facility] Urology Start: 07-31-2022 Telephone encounter Annette Bejarano DO Work Phone: [facility] Urology Comment on above: Surgery Scheduling ( Confirm transportation ) Start: 07-18-2022 Telephone encounter Paige PENDLETON [facility] Infectious Disease Start: 07-11-2022 ambulatory Annette Torres Mando es DO Work Phone: [facility] Urology Start: 06-12-2022 Telephone encounter Annette Bejarano DO Work Phone: [facility] Urology Comment on above: Surgery Scheduling Start: 06-10-2022 ambulatory Patricia kulkarni METHOD CONSULTANT - HAND I THERMAL CUTTER Work Phone: [facility] Urology Start: 06-09-2022 End: 06-16-2022 Evaluation and management of inpatient Hood Wood DO Work Phone: [facility] 4S TELEMETRY Start: 03-08-2021 End: 04-15-2021 Evaluation and management of inpatient Kamran Cassidy MD Work Phone: [facility] Start: 02-06-2021 End: 02-10-2021 Evaluation and management of inpatient Cliff Wakefield [facility] Medical 603 01 Other Phone (unformatted): [phone] Start: 02-02-2021 End: 02-06-2021 Evaluation and management of inpatient K[address] Morton Michael [facility] 3 Med Surg [place] [address] 01 Procedures Date Procedure Procedure Detail Performing Clinician Start: 02-04-2025 Glucose quantitative blood xcpt reagent strip Tesha Mcnamara MD Work Phone: Start: 02-04-2025 Glucose quantitative blood xcpt reagent strip Tesha Mcnamara MD Work Phone: Start: 02-03-2025 Glucose quantitative blood xcpt reagent strip Tesha Mcnamara MD Work Phone: Start: 02-03-2025 Dup-scan xtr veins complete bilateral study Tesha Mcnamara MD Work Phone: Start: 02-03-2025 Glucose quantitative blood xcpt reagent strip Tesha Mcnamara MD Work Phone: Start: 02-03-2025 End: 02-03-2025 Comprehensive metabolic panel Tesha Mcnamara MD Work Phone: Start: 02-03-2025 End: 02-03-2025 Glucose quantitative blood xcpt reagent strip Tesha Mcnamara MD Work Phone: Start: 02-02-2025 Glucose quantitative blood xcpt reagent strip Godwin Goetz MD Work Phone: Start: 02-02-2025 Glucose quantitative blood xcpt reagent strip Godwin Goetz MD Work Phone: Start: 02-02-2025 Glucose quantitative blood xcpt reagent strip Godwin Goetz MD Work Phone: Start: 02-02-2025 Glucose quantitative blood xcpt reagent strip Godwin Goetz MD Work Phone: Start: 02-01-2025 Glucose quantitative blood xcpt reagent strip Godwin Goetz MD Work Phone: Start: 02-01-2025 Glucose quantitative blood xcpt reagent strip Godwin Goetz MD Work Phone: Start: 02-01-2025 Glucose quantitative blood xcpt reagent strip Godwin Goetz MD Work Phone: Start: 02-01-2025 Glucose quantitative blood xcpt reagent strip Godwin Goetz MD Work Phone: Start: 01-31-2025 Glucose quantitative blood xcpt reagent strip Godwin Goetz MD Work Phone: Start: 01-31-2025 Glucose quantitative blood xcpt reagent strip Godwin Goetz MD Work Phone: Start: 01-31-2025 Glucose quantitative blood xcpt reagent strip Godwin Goetz MD Work Phone: Start: 01-31-2025 Basic metabolic panel calcium total Godwin Goetz MD Work Phone: Start: 01-30-2025 Glucose quantitative blood xcpt reagent strip Godwin Goetz MD Work Phone: Start: 01-30-2025 Glucose quantitative blood xcpt reagent strip Godwin Goetz MD Work Phone: Start: 01-30-2025 Basic metabolic panel calcium total Godwin Goetz MD Work Phone: Start: 01-30-2025 Blood count complete auto&auto difrntl wbc Godwin Goetz MD Work Phone: Start: 01-29-2025 Glucose quantitative blood xcpt reagent strip Godwin Goetz MD Work Phone: Start: 01-29-2025 Glucose quantitative blood xcpt reagent strip Godwin Goetz MD Work Phone: Start: 01-29-2025 Glucose quantitative blood xcpt reagent strip Mario Portillo MD Work Phone: Start: 01-29-2025 Bacteria identified in Blood by Culture Mario Portillo MD Work Phone: Start: 01-29-2025 Comprehensive metabolic panel Mario guerrero MD Work Phone: Start: 01-29-2025 Culture bacterial quanttative colony count urine Mario Portillo MD Work Phone: Start: 01-29-2025 Radiologic exam chest single view Mario Portillo MD Work Phone: Start: 01-29-2025 Ct head/brain w/o contrast material Mario Portillo MD Work Phone: Start: 01-29-2025 Ecg routine ecg w/least 12 lds trcg only w/o i&r Mario Portillo MD Work Phone: Start: 10-18-2024 Glucose quantitative blood xcpt reagent strip Paige Rivera DO Work Phone: Start: 10-18-2024 Comprehensive metabolic panel Cristino Bruno DO Work Phone: Start: 10-17-2024 Glucose quantitative blood xcpt reagent strip Paige Rivera DO Work Phone: Start: 10-17-2024 Glucose quantitative blood xcpt reagent strip Paige Rivera DO Work Phone: Start: 10-17-2024 Radex hand minimum 3 views Paige Rivera DO Work Phone: Start: 10-17-2024 Glucose quantitative blood xcpt reagent strip Paige Rivera DO Work Phone: Start: 10-17-2024 OXYGEN THERAPY Cristino Bruno DO Work Phone: Start: 10-17-2024 Glucose quantitative blood xcpt reagent strip Paige Rivera DO Work Phone: Start: 10-17-2024 Comprehensive metabolic panel Cristino Messeri DO Work Phone: Start: 10-16-2024 Glucose quantitative blood xcpt reagent strip Paige Rivera DO Work Phone: Start: 10-16-2024 Glucose quantitative blood xcpt reagent strip Paige Mcclendongt DO Work Phone: Start: 10-16-2024 Glucose quantitative blood xcpt reagent strip Paige Mcclendongt DO Work Phone: Start: 10-16-2024 Glucose quantitative blood xcpt reagent strip Paige Mcclendongt DO Work Phone: Start: 10-16-2024 OXYGEN THERAPY Cristino Bruno DO Work Phone: Start: 10-16-2024 Comprehensive metabolic panel Cristino Bruno DO Work Phone: Start: 10-16-2024 Inf agent det nucleic acid clostridium amp probe Apolinar Lu MD Work Phone: Start: 10-15-2024 OXYGEN THERAPY Cristino Bruno DO Work Phone: Start: 10-15-2024 Glucose quantitative blood xcpt reagent strip Paige Rivera DO Work Phone: Start: 10-15-2024 Ct cervical spine w/o contrast material Paige Rivera DO Work Phone: Start: 10-15-2024 Glucose quantitative blood xcpt reagent strip Paige Mcclendongt DO Work Phone: Start: 10-15-2024 Glucose quantitative blood xcpt reagent strip Paige Mcclendongt DO Work Phone: Start: 10-15-2024 Comprehensive metabolic panel Cristino Messeri DO Work Phone: Start: 10-14-2024 OXYGEN THERAPY Cristino Messeri DO Work Phone: Start: 10-14-2024 Glucose quantitative blood xcpt reagent strip Paige Vogt DO Work Phone: Start: 10-14-2024 Glucose quantitative blood xcpt reagent strip Paige Rivera DO Work Phone: Start: 10-14-2024 Glucose quantitative blood xcpt reagent strip Paige Rivera DO Work Phone: Start: 10-14-2024 Comprehensive metabolic panel Cristino Bruno DO Work Phone: Start: 10-14-2024 Drug screen quantitative vancomycin Cristino Bruno DO Work Phone: Start: 10-13-2024 Glucose quantitative blood xcpt reagent strip Godwin Goetz MD Work Phone: Start: 10-13-2024 OXYGEN THERAPY Cristino Bruno DO Work Phone: Start: 10-13-2024 Glucose quantitative blood xcpt reagent strip Godwin Goetz MD Work Phone: Start: 10-13-2024 Glucose quantitative blood xcpt reagent strip Godwin Goetz MD Work Phone: Start: 10-13-2024 OXYGEN THERAPY Cristino Bruno DO Work Phone: Start: 10-13-2024 Comprehensive metabolic panel Cristino Bruno DO Work Phone: Start: 10-12-2024 Glucose quantitative blood xcpt reagent strip Godwin Goetz MD Work Phone: Start: 10-12-2024 OXYGEN THERAPY Alicolin Bruno DO Work Phone: Start: 10-12-2024 Glucose quantitative blood xcpt reagent strip Godwin Goetz MD Work Phone: Start: 10-12-2024 Glucose quantitative blood xcpt reagent strip Godwin Goetz MD Work Phone: Start: 10-12-2024 Glucose quantitative blood xcpt reagent strip Godwin Goetz MD Work Phone: Start: 10-12-2024 Comprehensive metabolic panel Alicolin Bruno DO Work Phone: Start: 10-11-2024 Glucose quantitative blood xcpt reagent strip Apolinar Lu MD Work Phone: Start: 10-11-2024 OXYGEN THERAPY Cristino Bruno DO Work Phone: Start: 10-11-2024 Glucose quantitative blood xcpt reagent strip Apolinar Lu MD Work Phone: Start: 10-11-2024 Glucose quantitative blood xcpt reagent strip Cristino Bruno DO Work Phone: Start: 10-11-2024 Glucose quantitative blood xcpt reagent strip Cristino Bruno DO Work Phone: Start: 10-11-2024 OXYGEN THERAPY Cristino Bruno DO Work Phone: Start: 10-11-2024 Comprehensive metabolic panel Cristino Bruno DO Work Phone: Start: 10-10-2024 Glucose quantitative blood xcpt reagent strip Cristino Bruno DO Work Phone: Start: 10-10-2024 OXYGEN THERAPY Cristino Bruno DO Work Phone: Start: 10-10-2024 Glucose quantitative blood xcpt reagent strip Cristino Bruno DO Work Phone: Start: 10-10-2024 Assay of lactate Cristino Bruno DO Work Phone: Start: 10-10-2024 Assay of lactate Cristino Bruno DO Work Phone: Start: 10-10-2024 OXYGEN THERAPY Cristino Bruno DO Work Phone: Start: 10-10-2024 Glucose quantitative blood xcpt reagent strip Cristino Bruno DO Work Phone: Start: 10-10-2024 Assay of lactate Cristino Bruno DO Work Phone: Start: 10-10-2024 Culture bacterial quanttative colony count urine Emelina Cooley PA-C Work Phone: Start: 10-10-2024 End: 10-10-2024 Comprehensive metabolic panel Cristino Bruno DO Work Phone: Start: 10-10-2024 Drug screen quantitative vancomycin Cristino Bruno DO Work Phone: Start: 10-10-2024 Assay of lactate Cristino Bruno DO Work Phone: Start: 10-09-2024 HC CUL TYP ID BLD PTHGN 6+ TRGT Emelina Taoono PA-C Work Phone: Start: 10-09-2024 End: 10-09-2024 Assay of troponin quantitative Emelina Taoono PA-C Work Phone: Start: 10-09-2024 End: 10-09-2024 Bacteria identified in Blood by Culture Emelina Taoono PA-C Work Phone: Start: 10-09-2024 Radiologic exam chest single view Giuliana Hankins METHOD CONSULTANT - MANAGER PRESENTATION Work Phone: Start: 10-09-2024 Insj non-tunneled central venous cath age 3 yr/> Giuliana Hankins METHOD CONSULTANT - MANAGER PRESENTATION Work Phone: Start: 10-09-2024 Us vasc access sits vsl patency ndl entry Giuliana Hankins METHOD CONSULTANT - MANAGER PRESENTATION Work Phone: Start: 10-09-2024 Assay of troponin quantitative Emelina Curtis Lenora PA-C Work Phone: Start: 10-09-2024 OXYGEN THERAPY Cristino Bruno DO Work Phone: Start: 10-09-2024 Ct thorax w/o contrast material Cristino Messeriuk DO Work Phone: Start: 10-09-2024 Ct lower extremity w/o contrast material Cristino Messeriuk DO Work Phone: Start: 10-09-2024 Ct head/brain w/o contrast material Emelina Kirsten Lenora PA-C Work Phone: Start: 10-09-2024 Radiologic exam chest single view Emelina Curtis Lenora PA-C Work Phone: Start: 10-09-2024 Blood gases any combination ph pco2 po2 co2 hco3 Emelina Curtis Lenora PA-C Work Phone: Start: 10-09-2024 End: 10-09-2024 Comprehensive metabolic panel Emelina Curtis Lenora PA-C Work Phone: Start: 10-09-2024 OXYGEN THERAPY Cristino Bruno DO Work Phone: Start: 01-03-2024 FL GUIDANCE OR USE ONLY - NON-RESULTABLE Bashir Vásquez MD Work Phone: Start: 01-03-2024 Glucose quantitative blood xcpt reagent strip Bashir Vásquez MD Work Phone: Start: 01-03-2024 Glucose quantitative blood xcpt reagent strip Bashir Vásquez MD Work Phone: Start: 11-29-2023 Glucose quantitative blood xcpt reagent strip Raphael Irwin DO Work Phone: Start: 11-29-2023 End: 11-29-2023 Blood count complete auto&auto difrntl wbc Faiza Camerone PA-C Work Phone: Start: 11-29-2023 Glucose quantitative blood xcpt reagent strip Raphael Ilodi DO Work Phone: Start: 11-29-2023 Basic metabolic panel calcium total Mari C Rizzardi METHOD CONSULTANT - MANAGER PRESENTATION Work Phone: Start: 11-28-2023 Glucose quantitative blood xcpt reagent strip Mari C Rizzardi METHOD CONSULTANT - MANAGER PRESENTATION Work Phone: Start: 11-28-2023 Glucose quantitative blood xcpt reagent strip Mari C Rizzardi METHOD CONSULTANT - MANAGER PRESENTATION Work Phone: Start: 11-28-2023 Radiologic exam chest single view Tina Mclean MD Work Phone: Start: 11-28-2023 Glucose quantitative blood xcpt reagent strip Mari C Rizzardi METHOD CONSULTANT - MANAGER PRESENTATION Work Phone: Start: 11-28-2023 Insertion picc w/rs&i 5 yr/> Tina hensley MD Work Phone: Start: 11-28-2023 Glucose quantitative blood xcpt reagent strip Mari Hakan Riezioardi METHOD CONSULTANT - MANAGER PRESENTATION Work Phone: Start: 11-28-2023 Basic metabolic panel calcium total Mari C Riezioardi METHOD CONSULTANT - MANAGER PRESENTATION Work Phone: Start: 11-28-2023 Glucose quantitative blood xcpt reagent strip Mari Hakan Rizzardi METHOD CONSULTANT - MANAGER PRESENTATION Work Phone: Start: 11-27-2023 Glucose quantitative blood xcpt reagent strip Mari C Rizzardi METHOD CONSULTANT - MANAGER PRESENTATION Work Phone: Start: 11-27-2023 Glucose quantitative blood xcpt reagent strip Mari Hakan Rizzardi METHOD CONSULTANT - MANAGER PRESENTATION Work Phone: Start: 11-27-2023 Glucose quantitative blood xcpt reagent strip Mari Hakan Rizzardi METHOD CONSULTANT - MANAGER PRESENTATION Work Phone: Start: 11-27-2023 Glucose quantitative blood xcpt reagent strip Mari C Rizzardi METHOD CONSULTANT - MANAGER PRESENTATION Work Phone: Start: 11-27-2023 Blood count complete auto&auto difrntl wbc Faiza Updyke PA-C Work Phone: Start: 11-27-2023 Basic metabolic panel calcium total Faiza Updyke PA-C Work Phone: Start: 11-26-2023 Glucose quantitative blood xcpt reagent strip Nilo Ivan MD Work Phone: Start: 11-26-2023 End: 11-26-2023 Basic metabolic panel calcium total Faiza Updyke PA-C Work Phone: Start: 11-26-2023 Drug screen quantitative vancomycin Aubrie Ramos MD Work Phone: Start: 11-26-2023 Glucose quantitative blood xcpt reagent strip Nilo Ivan MD Work Phone: Start: 11-25-2023 Glucose quantitative blood xcpt reagent strip Nilo Ivan MD Work Phone: Start: 11-25-2023 Glucose quantitative blood xcpt reagent strip Nilo Ivan MD Work Phone: Start: 11-25-2023 Glucose quantitative blood xcpt reagent strip Nilo Ivan MD Work Phone: Start: 11-25-2023 FL GUIDANCE OR USE ONLY - NON-RESULTABLE Bashir Vásquez MD Work Phone: Start: 11-25-2023 End: 11-25-2023 Cysto w/insert ureteral stent Bashir bonilla MD Work Phone: Start: 11-25-2023 Glucose quantitative blood xcpt reagent strip Nilo Ivan MD Work Phone: Start: 11-25-2023 Comprehensive metabolic panel Jeffry dean MD Work Phone: Start: 11-24-2023 Glucose quantitative blood xcpt reagent strip Jeffry Sal MD Work Phone: Start: 11-24-2023 Bacteria identified in Blood by Culture Kaitlynn Arceo PA-C Work Phone: Start: 11-24-2023 Glucose quantitative blood xcpt reagent strip Jeffry Sal MD Work Phone: Start: 11-24-2023 Glucose quantitative blood xcpt reagent strip Jeffry Sal MD Work Phone: Start: 11-24-2023 Glucose quantitative blood xcpt reagent strip Jeffry Sal MD Work Phone: Start: 11-24-2023 End: 11-24-2023 Assay of lactate Jeffry Sal MD Work Phone: Start: 11-24-2023 Assay of lactate Jeffry Sal MD Work Phone: Start: 11-24-2023 Comprehensive metabolic panel Jeffry dean MD Work Phone: Start: 11-24-2023 Drug screen quantitative vancomycin Jeffry Sal MD Work Phone: Start: 11-23-2023 Glucose quantitative blood xcpt reagent strip Jeffry Sal MD Work Phone: Start: 11-23-2023 Assay of lactate Jeffry Sal MD Work Phone: Start: 11-23-2023 Glucose quantitative blood xcpt reagent strip Jeffry Sal MD Work Phone: Start: 11-23-2023 Ct abdomen & pelvis w/o contrast material Faiza Updyke PA-C Work Phone: Start: 11-23-2023 Glucose quantitative blood xcpt reagent strip Juan Cervantes MD Work Phone: Start: 11-23-2023 Assay of lactate Jeffry Sal MD Work Phone: Start: 11-23-2023 Dup-scan xtr veins unilateral/limited study Jeffry Sal MD Work Phone: Start: 11-23-2023 Glucose quantitative blood xcpt reagent strip Juan Cervantes MD Work Phone: Start: 11-23-2023 Comprehensive metabolic panel Jeffry dean MD Work Phone: Start: 11-23-2023 Assay of lactate Jeffry Sal MD Work Phone: Start: 11-23-2023 Assay of troponin quantitative Torres Aguilera MD Work Phone: Start: 11-23-2023 Blood gases any combination ph pco2 po2 co2 hco3 Torres Aguilera MD Work Phone: Start: 11-22-2023 Ecg routine ecg w/least 12 lds trcg only w/o i&r Torres Aguilera MD Work Phone: Start: 11-22-2023 Culture bacterial quanttative colony count urine Torres Aguilera MD Work Phone: Start: 11-22-2023 HC SARSCOV2&INF A&B&RSV AMP PRB Juan Cervantes MD Work Phone: Start: 11-22-2023 Urinalysis complete panel - Urine Torres Aguilera MD Work Phone: Start: 11-22-2023 Radiologic exam chest single view Torres Aguilera MD Work Phone: Start: 11-22-2023 Bacteria identified in Blood by Culture Juan Cervantes MD Work Phone: Start: 11-22-2023 Comprehensive metabolic panel Trores durand MD Work Phone: Start: 11-22-2023 HC CUL TYP ID BLD PTHGN 6+ TRGT Juan Cervantes MD Work Phone: Start: 11-22-2023 Ct head/brain w/o contrast material Torres Aguilera MD Work Phone: Start: 11-22-2023 Glucose quantitative blood xcpt reagent strip Juan Cervantes MD Work Phone: Start: 09-27-2023 Glucose quantitative blood xcpt reagent strip Bashir Vásquez MD Work Phone: Start: 09-27-2023 FL GUIDANCE OR USE ONLY - NON-RESULTABLE Bashir Vásquez MD Work Phone: Start: 09-27-2023 Glucose quantitative blood xcpt reagent strip Bashir Vásquez MD Work Phone: Start: 09-27-2023 End: 09-27-2023 Cysto w/insert ureteral stent Bashir bonilla MD Work Phone: Start: 09-27-2023 End: 09-27-2023 Cysto w/ureteroscopy w/lithotripsy Bashir Vásquez MD Work Phone: Start: 09-27-2023 End: 09-27-2023 Cystourethroscopy Bashir Vásquez MD Work Phone: Start: 09-27-2023 Glucose quantitative blood xcpt reagent strip Bashir Vásquez MD Work Phone: Start: 08-09-2023 Glucose quantitative blood xcpt reagent strip Paige Rivera DO Work Phone: Start: 08-09-2023 Glucose quantitative blood xcpt reagent strip Paige Rivera DO Work Phone: Start: 08-09-2023 Basic metabolic panel calcium total Maya Vijay-Irene DO Work Phone: Start: 08-09-2023 Manual Differential panel - Blood Maya Kota DO Work Phone: Start: 08-08-2023 Glucose quantitative blood xcpt reagent strip Paige Rivera DO Work Phone: Start: 08-08-2023 Glucose quantitative blood xcpt reagent strip Paige Rivera DO Work Phone: Start: 08-08-2023 Glucose quantitative blood xcpt reagent strip Paige Rivera DO Work Phone: Start: 08-08-2023 Glucose quantitative blood xcpt reagent strip Paige Rivera DO Work Phone: Start: 08-08-2023 Basic metabolic panel calcium total Maya Kota DO Work Phone: Start: 08-07-2023 Glucose quantitative blood xcpt reagent strip Reynold Garner MD Work Phone: Start: 08-07-2023 Glucose quantitative blood xcpt reagent strip Reynold Garner MD Work Phone: Start: 08-07-2023 Glucose quantitative blood xcpt reagent strip Reynold Garner MD Work Phone: Start: 08-07-2023 Glucose quantitative blood xcpt reagent strip Reynold Garner MD Work Phone: Start: 08-07-2023 End: 08-07-2023 Basic metabolic panel calcium total Maya Kota DO Work Phone: Start: 08-07-2023 Manual Differential panel - Blood Maya Kota DO Work Phone: Start: 08-06-2023 End: 08-06-2023 Thromboplastin time partial plasma/whole blood Reynold Garner MD Work Phone: Start: 08-06-2023 Basic metabolic panel calcium total Reynold Garner MD Work Phone: Start: 08-06-2023 IR CVC PICC PLACEMENT Reynold Garner MD Work Phone: Start: 08-06-2023 Thromboplastin time partial plasma/whole blood Reyna Calderón METHOD CONSULTANT - MANAGER PRESENTATION Work Phone: Start: 08-06-2023 End: 08-06-2023 Blood count complete automated Reyna Calderón METHOD CONSULTANT - MANAGER PRESENTATION Work Phone: Start: 08-06-2023 Glucose quantitative blood xcpt reagent strip Maya Vijay-Irene DO Work Phone: Start: 08-06-2023 Manual Differential panel - Blood Maya Vijay-Irene DO Work Phone: Start: 08-06-2023 End: 08-06-2023 Basic metabolic panel calcium total Maya Vijay-Irene DO Work Phone: Start: 08-05-2023 Glucose quantitative blood xcpt reagent strip Maya Vijay-Irene DO Work Phone: Start: 08-05-2023 Glucose quantitative blood xcpt reagent strip Maya Vijay-Irene DO Work Phone: Start: 08-05-2023 Thromboplastin time partial plasma/whole blood Reyna Calderón METHOD CONSULTANT - MANAGER PRESENTATION Work Phone: Start: 08-05-2023 Basic metabolic panel calcium total Maya Vijay-Irene DO Work Phone: Start: 08-05-2023 End: 08-05-2023 Thromboplastin time partial plasma/whole blood Reyna Calderón METHOD CONSULTANT - MANAGER PRESENTATION Work Phone: Start: 08-05-2023 EXTUBATION Maya Vijay-Irene DO Work Phone: Start: 08-05-2023 Radiologic exam chest single view Maya Vijay-Irene DO Work Phone: Start: 08-05-2023 Glucose quantitative blood xcpt reagent strip Maya Vijay-Irene DO Work Phone: Start: 08-05-2023 Basic metabolic panel calcium total Maya Vijay-Irene DO Work Phone: Start: 08-05-2023 Manual Differential panel - Blood Maya Palomoodgrass DO Work Phone: Start: 08-04-2023 Glucose quantitative blood xcpt reagent strip Maya Palomoodgrass DO Work Phone: Start: 08-04-2023 Glucose quantitative blood xcpt reagent strip Maya Mccray-Irene DO Work Phone: Start: 08-04-2023 Basic metabolic panel calcium total Maya Palomoodgrass DO Work Phone: Start: 08-04-2023 Blood typing serologic rh (d) Maya Del Real DO Work Phone: Start: 08-04-2023 Glucose quantitative blood xcpt reagent strip Maya Palomoodgrass DO Work Phone: Start: 08-04-2023 Radiologic exam chest single view Maya Del Real DO Work Phone: Start: 08-04-2023 Glucose quantitative blood xcpt reagent strip Maya Palomoodgrass DO Work Phone: Start: 08-04-2023 Comprehensive metabolic panel Reyna Hernandez METHOD CONSULTANT - MANAGER PRESENTATION Work Phone: Start: 08-04-2023 Drug screen quantitative vancomycin Maya Smythgrass DO Work Phone: Start: 08-04-2023 Manual Differential panel - Blood Reyna Calderón METHOD CONSULTANT - MANAGER PRESENTATION Work Phone: Start: 08-03-2023 Glucose quantitative blood xcpt reagent strip Mayamelissa Mccray-Irene DO Work Phone: Start: 08-03-2023 Thromboplastin time partial plasma/whole blood Reyna Calderón METHOD CONSULTANT - MANAGER PRESENTATION Work Phone: Start: 08-03-2023 Glucose quantitative blood xcpt reagent strip Maya Mccray-Irene DO Work Phone: Start: 08-03-2023 Glucose quantitative blood xcpt reagent strip Maya Vijay-Irene DO Work Phone: Start: 08-03-2023 Us abdominal real time w/image limited Anibal Black METHOD CONSULTANT - MANAGER PRESENTATION Work Phone: Start: 08-03-2023 Basic metabolic panel calcium total Maya Vijay-Irene DO Work Phone: Start: 08-03-2023 Glucose quantitative blood xcpt reagent strip Maya Vijay-Irene DO Work Phone: Start: 08-03-2023 Calcium ionized Reyna Berrodin-Pin ter METHOD CONSULTANT - MANAGER PRESENTATION Work Phone: Start: 08-03-2023 Glucose quantitative blood xcpt reagent strip Maya Vijay-Irene DO Work Phone: Start: 08-03-2023 Basic metabolic panel calcium total Reyna Brownodin-Amy METHOD CONSULTANT - MANAGER PRESENTATION Work Phone: Start: 08-03-2023 EXTRA TUBES Maya Vijay-Irene DO Work Phone: Start: 08-03-2023 LIGHT BLUE TOP Maya Vijay-Irene DO Work Phone: Start: 08-02-2023 End: 08-03-2023 Comprehensive metabolic panel Reyna Dilshad rrodin-Amy METHOD CONSULTANT - MANAGER PRESENTATION Work Phone: Start: 08-02-2023 End: 08-02-2023 Glucose quantitative blood xcpt reagent strip Maya Vijay-Irene DO Work Phone: Start: 08-02-2023 End: 08-02-2023 Basic metabolic panel calcium total Reyna Berrodin-Amy METHOD CONSULTANT - MANAGER PRESENTATION Work Phone: Start: 08-02-2023 End: 08-02-2023 Thromboplastin time partial plasma/whole blood Reyna Berrodin-Amy METHOD CONSULTANT - MANAGER PRESENTATION Work Phone: Start: 08-02-2023 Ct thorax w/o contrast material Maya Vijay-Irene DO Work Phone: Start: 08-02-2023 Ct abdomen & pelvis w/o contrast material Maya Del Real DO Work Phone: Start: 08-02-2023 Glucose quantitative blood xcpt reagent strip Maya Smythgrass DO Work Phone: Start: 08-02-2023 End: 08-02-2023 Glucose quantitative blood xcpt reagent strip Maya Palomoodgrass DO Work Phone: Start: 08-02-2023 Basic metabolic panel calcium total Reyna Najerater METHOD CONSULTANT - MANAGER PRESENTATION Work Phone: Start: 08-02-2023 Radiologic exam chest single view Maya Del Real DO Work Phone: Start: 08-02-2023 Glucose quantitative blood xcpt reagent strip Maya Palomoodgrass DO Work Phone: Start: 08-02-2023 End: 08-02-2023 Thromboplastin time partial plasma/whole blood Reyna GeorgeEfrenAmy METHOD CONSULTANT - MANAGER PRESENTATION Work Phone: Start: 08-02-2023 End: 08-02-2023 Glucose quantitative blood xcpt reagent strip Maya Del Real DO Work Phone: Start: 08-02-2023 Antibody identification platelet antibodies Maya Del Real DO Work Phone: Start: 08-02-2023 End: 08-02-2023 Basic metabolic panel calcium total Reyna GeorgeEfrenAmy METHOD CONSULTANT - MANAGER PRESENTATION Work Phone: Start: 08-02-2023 Glucose quantitative blood xcpt reagent strip Maya Smythgrass DO Work Phone: Start: 08-02-2023 Blood gases any combination ph pco2 po2 co2 hco3 Maya Del Real DO Work Phone: Start: 08-02-2023 End: 08-02-2023 Blood count complete auto&auto difrntl wbc Reyna GeorgeEfrenAmy METHOD CONSULTANT - MANAGER PRESENTATION Work Phone: Start: 08-02-2023 Manual Differential panel - Blood Reyna Calderón METHOD CONSULTANT - MANAGER PRESENTATION Work Phone: Start: 08-02-2023 Bacteria identified in Blood by Culture Maya Del Real DO Work Phone: Start: 08-02-2023 End: 08-02-2023 Glucose quantitative blood xcpt reagent strip Maya Del Real DO Work Phone: Start: 08-01-2023 Radiologic exam chest single view Maya Del Real DO Work Phone: Start: 08-01-2023 End: 08-02-2023 Comprehensive metabolic panel Reyna Hernandez METHOD CONSULTANT - MANAGER PRESENTATION Work Phone: Start: 08-01-2023 Drug screen quantitative vancomycin Anisa Petersen MD Work Phone: Start: 08-01-2023 Manual Differential panel - Blood Reyna Calderón METHOD CONSULTANT - MANAGER PRESENTATION Work Phone: Start: 08-01-2023 Blood gases any combination ph pco2 po2 co2 hco3 Maya Del Real DO Work Phone: Start: 08-01-2023 End: 08-01-2023 Smr prim src gram/giemsa stain bct fungi/cell Reyna Calderón METHOD CONSULTANT - MANAGER PRESENTATION Work Phone: Start: 08-01-2023 Glucose quantitative blood xcpt reagent strip Maya Del Real DO Work Phone: Start: 08-01-2023 End: 08-01-2023 Comprehensive metabolic panel Reyna Hernandez METHOD CONSULTANT - MANAGER PRESENTATION Work Phone: Start: 07-31-2023 End: 07-31-2023 Glucose quantitative blood xcpt reagent strip Maya Del Real DO Work Phone: Start: 07-31-2023 End: 07-31-2023 Assay of lactate Reyna ferreira METHOD CONSULTANT - MANAGER PRESENTATION Work Phone: Start: 07-31-2023 End: 07-31-2023 Basic metabolic panel calcium total Reyna Vazquez-Amy METHOD CONSULTANT - MANAGER PRESENTATION Work Phone: Start: 07-31-2023 End: 07-31-2023 Blood count complete automated Maya Vijay-Irene DO Work Phone: Start: 07-31-2023 Glucose quantitative blood xcpt reagent strip Maya Vijay-Irene DO Work Phone: Start: 07-31-2023 Glucose quantitative blood xcpt reagent strip Maya Vijay-Irene DO Work Phone: Start: 07-31-2023 Antibody screen rbc each serum technique Maya Vijay-Irene DO Work Phone: Start: 07-31-2023 End: 07-31-2023 Comprehensive metabolic panel Reyna funk-Amy METHOD CONSULTANT - MANAGER PRESENTATION Work Phone: Start: 07-31-2023 TTE w or wo fol wcon,Doppler Reyna vasquez-Amy METHOD CONSULTANT - MANAGER PRESENTATION Work Phone: Start: 07-31-2023 End: 07-31-2023 Glucose quantitative blood xcpt reagent strip Maya Vijay-Irene DO Work Phone: Start: 07-31-2023 Glucose quantitative blood xcpt reagent strip Maya Vijay-Irene DO Work Phone: Start: 07-31-2023 Glucose quantitative blood xcpt reagent strip Maya Vijay-Irene DO Work Phone: Start: 07-31-2023 FL GUIDANCE OR USE ONLY - NON-RESULTABLE Bashir Vásquez MD Work Phone: Start: 07-31-2023 End: 07-31-2023 Cysto w/insert ureteral stent Bashir bonilla MD Work Phone: Start: 9 End: 07-31-2023 Basic metabolic panel calcium total Reyna PerezAmy METHOD CONSULTANT - MANAGER PRESENTATION Work Phone: Start: 07-31-2023 Manual differential performed [Presence] in Blood Reyna Calderón METHOD CONSULTANT - MANAGER PRESENTATION Work Phone: Start: 07-31-2023 Radiologic exam chest single view Reyna Calderón METHOD CONSULTANT - MANAGER PRESENTATION Work Phone: Start: 07-31-2023 End: 07-31-2023 Glucose quantitative blood xcpt reagent strip Maya Del Real DO Work Phone: Start: 07-31-2023 End: 07-31-2023 Assay of troponin quantitative Reyna Calderón METHOD CONSULTANT - MANAGER PRESENTATION Work Phone: Start: 07-31-2023 Radiologic exam chest single view Maya Del Real DO Work Phone: Start: 07-31-2023 HCS CENTRAL VENOUS CATHETER TRIPLE LUMEN Reyna Calderón METHOD CONSULTANT - MANAGER PRESENTATION Work Phone: Start: 07-31-2023 Insj non-tunneled central venous cath age 3 yr/> Reyna Calderón METHOD CONSULTANT - MANAGER PRESENTATION Work Phone: Start: 07-31-2023 Ct abdomen & pelvis w/o contrast material Reyna Calderón METHOD CONSULTANT - MANAGER PRESENTATION Work Phone: Start: 07-31-2023 Blood gases any combination ph pco2 po2 co2 hco3 Maya Del Real DO Work Phone: Start: 07-30-2023 End: 07-31-2023 Thromboplastin time partial plasma/whole blood Reyna Calderón METHOD CONSULTANT - MANAGER PRESENTATION Work Phone: Start: 07-30-2023 End: 07-30-2023 Basic metabolic panel calcium total Reyna Calderón METHOD CONSULTANT - MANAGER PRESENTATION Work Phone: Start: 07-30-2023 Sars-cov-2 detection by dna/rna Reyna Calderón METHOD CONSULTANT - MANAGER PRESENTATION Work Phone: Start: 07-30-2023 Blood gases any combination ph pco2 po2 co2 hco3 Cesario Lemon MD Work Phone: Start: 07-30-2023 Ecg routine ecg w/least 12 lds trcg only w/o i&r Cesario Lemon MD Work Phone: Start: 07-30-2023 End: 07-30-2023 Comprehensive metabolic panel Cesario glasgow MD Work Phone: Start: 07-30-2023 End: 07-30-2023 Creatinine other source Reyna Trevino METHOD CONSULTANT - MANAGER PRESENTATION Work Phone: Start: 07-30-2023 Culture bacterial quanttative colony count urine Cesario Lemon MD Work Phone: Start: 07-30-2023 Urinalysis complete panel - Urine Cesario Lemon MD Work Phone: Start: 07-30-2023 End: 07-30-2023 Blood occult peroxidase actv qual feces 1-3 spec Cesario Lemon MD Work Phone: Start: 07-30-2023 Assay of lactate Cesario Lemon MD Work Phone: Start: 07-30-2023 Ct head/brain w/o contrast material Cesario Lemon MD Work Phone: Start: 07-30-2023 Radiologic exam chest single view Cesario Lemon MD Work Phone: Start: 07-30-2023 Blood gases any combination ph pco2 po2 co2 hco3 Cesario Lemon MD Work Phone: Start: 07-30-2023 Bacteria identified in Blood by Culture Cesario Lemon MD Work Phone: Start: 07-30-2023 End: 07-30-2023 Comprehensive metabolic panel Cesario glasgow MD Work Phone: Start: 07-30-2023 HC CUL TYP ID BLD PTHGN 6+ TRGT Cesario Lemon MD Work Phone: Start: 07-30-2023 Manual differential performed [Presence] in Blood Cesario Lemon MD Work Phone: Start: 07-30-2023 Ecg routine ecg w/least 12 lds trcg only w/o i&r Cesario Lemon MD Work Phone: Start: 01-11-2023 Glucose quantitative blood xcpt reagent strip Paige Vogt DO Work Phone: Start: 01-11-2023 Glucose quantitative blood xcpt reagent strip Paige Vogt DO Work Phone: Start: 01-11-2023 Glucose quantitative blood xcpt reagent strip Paige Vogt DO Work Phone: Start: 01-10-2023 Glucose quantitative blood xcpt reagent strip Paige Vogt DO Work Phone: Start: 01-10-2023 Glucose quantitative blood xcpt reagent strip Paige Vogt DO Work Phone: Start: 01-10-2023 Glucose quantitative blood xcpt reagent strip Paige Vogt DO Work Phone: Start: 01-10-2023 Glucose quantitative blood xcpt reagent strip Paige Vogt DO Work Phone: Start: 01-09-2023 Glucose quantitative blood xcpt reagent strip Paige Vogt DO Work Phone: Start: 01-09-2023 Glucose quantitative blood xcpt reagent strip Paige Vogt DO Work Phone: Start: 01-08-2023 Glucose quantitative blood xcpt reagent strip Paige Vogt DO Work Phone: Start: 01-08-2023 Glucose quantitative blood xcpt reagent strip Fahad G Nesheim DO Work Phone: Start: 01-08-2023 Mri spinal canal cervical w/o contrast juan jose Lu MD Work Phone: Start: 01-08-2023 Assay of lactate Fahad G Nesheim DO Work Phone: Start: 01-08-2023 Bacteria identified in Blood by Culture Fahad G Nesheim DO Work Phone: Start: 01-08-2023 Culture bacterial quanttative colony count urine Fahad G Nesheim DO Work Phone: Start: 01-08-2023 Urinalysis complete panel - Urine Fahad G Nesheim DO Work Phone: Start: 01-08-2023 Ct cervical spine w/o contrast material Fahad G Nesheim DO Work Phone: Start: 01-08-2023 Comprehensive metabolic panel Fahad G N esheim DO Work Phone: Start: 08-07-2022 SARS-CoV-2 (COVID-19) Ag [Presence] in Respiratory specimen by Rapid immunoassay Juan Becker DO Work Phone: Start: 08-07-2022 End: 08-07-2022 Basic metabolic panel calcium total Juan Becker DO Work Phone: Start: 08-07-2022 Glucose quantitative blood xcpt reagent strip Deacon Tariq MD Work Phone: Start: 08-06-2022 Glucose quantitative blood xcpt reagent strip Deacon Tariq MD Work Phone: Start: 08-06-2022 Glucose quantitative blood xcpt reagent strip Deacon Tariq MD Work Phone: Start: 08-06-2022 End: 08-06-2022 Creatinine other source Sravan Pinzon MD Work Phone: Start: 08-06-2022 Urnls dip stick/tablet reagent auto microscopy Sravan Pinzon MD Work Phone: Start: 08-06-2022 Glucose quantitative blood xcpt reagent strip Deacon Tariq MD Work Phone: Start: 08-06-2022 Comprehensive metabolic panel Nate Varg o DO Work Phone: Start: 08-05-2022 Glucose quantitative blood xcpt reagent strip Deacon Tariq MD Work Phone: Start: 08-05-2022 Glucose quantitative blood xcpt reagent strip Deacon Tariq MD Work Phone: Start: 08-05-2022 Glucose quantitative blood xcpt reagent strip Deacon Tariq MD Work Phone: Start: 08-05-2022 Glucose quantitative blood xcpt reagent strip Deacon Tariq MD Work Phone: Start: 08-04-2022 Glucose quantitative blood xcpt reagent strip Deacon Tariq MD Work Phone: Start: 08-04-2022 Glucose quantitative blood xcpt reagent strip Deacon Tariq MD Work Phone: Start: 08-04-2022 Culture bacterial quanttative colony count urine Juan Becker DO Work Phone: Start: 08-04-2022 Urinalysis complete panel - Urine Nate Churchill DO Work Phone: Start: 08-04-2022 Glucose quantitative blood xcpt reagent strip Deacon Tariq MD Work Phone: Start: 08-04-2022 Glucose quantitative blood xcpt reagent strip Deacon Tariq MD Work Phone: Start: 08-03-2022 Glucose quantitative blood xcpt reagent strip Deacon Tariq MD Work Phone: Start: 08-03-2022 POCT GLUCOSE METER UNSOLICITED RESULTS Deacon Tariq MD Work Phone: Start: 08-03-2022 Glucose quantitative blood xcpt reagent strip Deacon Tariq MD Work Phone: Start: 08-03-2022 Glucose quantitative blood xcpt reagent strip Deacon Tariq MD Work Phone: Start: 08-03-2022 FL GUIDANCE OR USE ONLY - NON-RESULTABLE Annette Bejarano DO Work Phone: Start: 08-03-2022 End: 08-03-2022 Cysto w/insert ureteral stent Annette Bejarano DO Work Phone: Start: 08-03-2022 End: 08-03-2022 Cysto w/ureteroscopy w/lithotripsy Annette Bejarano DO Work Phone: Start: 08-03-2022 End: 08-03-2022 Cystourethroscopy Annette Bejarano DO Work Phone: Start: 08-03-2022 Glucose quantitative blood xcpt reagent strip Deacon Tariq MD Work Phone: Start: 08-03-2022 Glucose quantitative blood xcpt reagent strip Deacon Tariq MD Work Phone: Start: 08-03-2022 Basic metabolic panel calcium total Dalia Evans DO Work Phone: Start: 08-02-2022 Glucose quantitative blood xcpt reagent strip Deacon Tariq MD Work Phone: Start: 08-02-2022 Basic metabolic panel calcium total Milly Newby MD Work Phone: Start: 06-16-2022 Glucose quantitative blood xcpt reagent strip Elise Park MD Work Phone: Start: 06-16-2022 SARS-CoV-2 (COVID-19) Ag [Presence] in Respiratory specimen by Rapid immunoassay Elise Park MD Work Phone: Start: 06-16-2022 Glucose quantitative blood xcpt reagent strip Elise Park MD Work Phone: Start: 06-16-2022 Comprehensive metabolic panel Franchesca parson MD Work Phone: Start: 06-16-2022 Manual differential performed [Presence] in Blood Franchesca Mckeon MD Work Phone: Start: 06-15-2022 Glucose quantitative blood xcpt reagent strip Elise Park MD Work Phone: Start: 06-15-2022 Glucose quantitative blood xcpt reagent strip Elise Park MD Work Phone: Start: 06-15-2022 IR CVC TUNNELED CENTRAL LINE PLACEMENT Elise Park MD Work Phone: Start: 06-15-2022 End: 06-15-2022 Prothrombin time Ramone Ellington MD Work Phone: Start: 06-15-2022 Glucose quantitative blood xcpt reagent strip Elise Park MD Work Phone: Start: 06-15-2022 Comprehensive metabolic panel Franchesca parson MD Work Phone: Start: 06-15-2022 Manual differential performed [Presence] in Blood Franchesca Mckeon MD Work Phone: Start: 06-14-2022 Glucose quantitative blood xcpt reagent strip Elise Park MD Work Phone: Start: 06-14-2022 Glucose quantitative blood xcpt reagent strip Elise Park MD Work Phone: Start: 06-14-2022 Glucose quantitative blood xcpt reagent strip Elise Park MD Work Phone: Start: 06-14-2022 Bacteria identified in Blood by Culture Dirk Fernandez MD Work Phone: Start: 06-14-2022 End: 06-14-2022 Comprehensive metabolic panel Franchesca parson MD Work Phone: Start: 06-14-2022 HC CUL TYP ID BLD PTHGN 6+ TRGT Dirk Fernandez MD Work Phone: Start: 06-14-2022 Manual differential performed [Presence] in Blood Franchesca Mckeon MD Work Phone: Start: 06-13-2022 End: 06-14-2022 Comprehensive metabolic panel Franchesca parson MD Work Phone: Start: 06-13-2022 Manual differential performed [Presence] in Blood Franchesca Mckeon MD Work Phone: Start: 06-12-2022 Glucose quantitative blood xcpt reagent strip Blanca Henderson MD Work Phone: Start: 06-12-2022 Glucose quantitative blood xcpt reagent strip Blanca Henderson MD Work Phone: Start: 06-12-2022 Thromboplastin time partial plasma/whole blood Franchesca Mckeon MD Work Phone: Start: 06-12-2022 End: 06-12-2022 Blood count hematocrit Leonor Burroughs Work Phone: Start: 06-12-2022 Compatibility each unit electronic Leonor Penaloza MD Work Phone: Start: 06-12-2022 End: 06-12-2022 TRANSFUSE RED BLOOD CELLS Leonor العلي MD Work Phone: Start: 06-12-2022 Glucose quantitative blood xcpt reagent strip Preston Fay MD Work Phone: Start: 06-12-2022 Antibody screen rbc each serum technique Leonor Penaloza MD Work Phone: Start: 06-12-2022 Comprehensive metabolic panel Franchesca parson MD Work Phone: Start: 06-11-2022 Glucose quantitative blood xcpt reagent strip Preston Fay MD Work Phone: Start: 06-11-2022 Glucose quantitative blood xcpt reagent strip Preston Fay MD Work Phone: Start: 06-11-2022 End: 06-11-2022 Assay of lactate Franchesca Mckeon MD Work Phone: Start: 06-11-2022 End: 06-11-2022 Bacteria identified in Blood by Culture Peter Schwartz CNP Work Phone: Start: 06-11-2022 Glucose quantitative blood xcpt reagent strip Franchesca Mckeon MD Work Phone: Start: 06-11-2022 End: 06-11-2022 Comprehensive metabolic panel Peter Schwartz CNP Work Phone: Start: 06-11-2022 Manual differential performed [Presence] in Blood Peter Schwartz CNP Work Phone: Start: 06-10-2022 Glucose quantitative blood xcpt reagent strip Franchesca Mckeon MD Work Phone: Start: 06-10-2022 End: 06-10-2022 Comprehensive metabolic panel Peter joshi APRN - PATRICK Work Phone: Start: 06-10-2022 Glucose quantitative blood xcpt reagent strip Franchesca Mckeon MD Work Phone: Start: 06-10-2022 Assay of lactate Franchesca Mckeon MD Work Phone: Start: 06-10-2022 Fluoroscopy up to 1 hour physician/qhp time Annette Melissa Darci DO Work Phone: Start: 06-10-2022 AEROBIC AND ANAEROBIC CULTURE WITH STAIN Annette Melissa Darci DO Work Phone: Start: 06-10-2022 Culture bacterial any source anaerobic iso&id Annette Melissa Darci DO Work Phone: Start: 06-10-2022 End: 06-10-2022 Cysto bladder w/ureteral catheterization Annette Melissa Darci DO Work Phone: Start: 06-10-2022 Culture bacterial quanttative colony count urine Patricia Avilez METHOD CONSULTANT - HAND I THERMAL CUTTER Work Phone: Start: 06-10-2022 Protein total xcpt refractometry urine Jonathan Hardwick MD Work Phone: Start: 06-10-2022 Urinalysis complete panel - Urine Patricia Avilez METHOD CONSULTANT - HAND I THERMAL CUTTER Work Phone: Start: 06-10-2022 TTE w or wo fol wcon,Doppler Franchesca hein MD Work Phone: Start: 06-10-2022 Ct abdomen & pelvis w/o contrast material Patricia Avilez METHOD CONSULTANT - HAND I THERMAL CUTTER Work Phone: Start: 06-10-2022 End: 06-10-2022 Comprehensive metabolic panel Peter joshi METHOD CONSULTANT - MANAGER PRESENTATION Work Phone: Start: 06-10-2022 Glucose quantitative blood xcpt reagent strip Franchesca Mckeon MD Work Phone: Start: 06-10-2022 Assay of lactate Peter Carbone METHOD CONSULTANT - MANAGER PRESENTATION Work Phone: Start: 06-10-2022 Radiologic exam chest single view Franchesca Mckeon MD Work Phone: Start: 06-10-2022 Comprehensive metabolic panel Franchesca parson MD Work Phone: Start: 06-10-2022 Drug screen quantitative vancomycin Hood Mudrakola DO Work Phone: Start: 06-10-2022 Manual differential performed [Presence] in Blood Peter Acierno METHOD CONSULTANT - MANAGER PRESENTATION Work Phone: Start: 06-09-2022 Glucose quantitative blood xcpt reagent strip Franchesca Mckeon MD Work Phone: Start: 06-09-2022 Thromboplastin time partial plasma/whole blood Franchesca Mckeon MD Work Phone: Start: 06-09-2022 Culture bacterial quanttative colony count urine Hood Mudrakola DO Work Phone: Start: 06-09-2022 Urinalysis complete panel - Urine Hood Mudrakola DO Work Phone: Start: 06-09-2022 Comprehensive metabolic panel Franchesca parson MD Work Phone: Start: 06-09-2022 Manual differential performed [Presence] in Blood Franchesca Mckeon MD Work Phone: Start: 06-09-2022 Ct head/brain w/o contrast material Hood Mudrakola DO Work Phone: Start: 06-09-2022 Assay of lactate Hood Mudrakola DO Work Phone: Start: 06-09-2022 Culture bacterial quanttative colony count urine Hood Mudrakola DO Work Phone: Start: 06-09-2022 Radiologic exam chest single view Hood Mudrakola DO Work Phone: Start: 06-09-2022 Blood gases any combination ph pco2 po2 co2 hco3 Hood Mudrakola DO Work Phone: Start: 06-09-2022 Bacteria identified in Blood by Culture Hood Wood DO Work Phone: Start: 06-09-2022 Comprehensive metabolic panel Hood montes DO Work Phone: Start: 06-09-2022 HC CUL TYP ID BLD PTHGN 6+ TRGT Hood Wood DO Work Phone: Start: 04-15-2021 Gluc bld gluc mntr dev cleared fda spec home use Jamie Groubert DO Work Phone: Start: 04-15-2021 Gluc bld gluc mntr dev cleared fda spec home use Jamie Groubert DO Work Phone: Start: 04-14-2021 Gluc bld gluc mntr dev cleared fda spec home use Jamie Groubert DO Work Phone: Start: 04-14-2021 Gluc bld gluc mntr dev cleared fda spec home use Jamie Groubert DO Work Phone: Start: 04-14-2021 Gluc bld gluc mntr dev cleared fda spec home use Jamie Groubert DO Work Phone: Start: 04-14-2021 Gluc bld gluc mntr dev cleared fda spec home use Jmaie Groubert DO Work Phone: Start: 04-14-2021 Basic metabolic panel calcium total Muna Velázquez MD Work Phone: Start: 04-13-2021 Gluc bld gluc mntr dev cleared fda spec home use Jamie Groubert DO Work Phone: Start: 04-13-2021 Gluc bld gluc mntr dev cleared fda spec home use Jamie Groubert DO Work Phone: Start: 04-13-2021 Gluc bld gluc mntr dev cleared fda spec home use Jamie Groubert DO Work Phone: Start: 04-13-2021 End: 04-13-2021 Basic metabolic panel calcium total Muna Velázquez MD Work Phone: Start: 04-12-2021 Gluc bld gluc mntr dev cleared fda spec home use Jamie Groubert DO Work Phone: Start: 04-12-2021 Gluc bld gluc mntr dev cleared fda spec home use Jamie Groubert DO Work Phone: Start: 04-12-2021 Special diagnostic procedures Reynold gtz MD Work Phone: Start: 04-12-2021 Gluc bld gluc mntr dev cleared fda spec home use Jamie Groubert DO Work Phone: Start: 04-12-2021 COVID-19 Ladonna Ochoa DO Work Phone: Start: 04-12-2021 Gluc bld gluc mntr dev cleared fda spec home use Jamie Groubert DO Work Phone: Start: 04-12-2021 Basic metabolic panel calcium total Muna Velázquez MD Work Phone: Start: 04-11-2021 Gluc bld gluc mntr dev cleared fda spec home use Jamie Groubert DO Work Phone: Start: 04-11-2021 ADD ON LAB TEST Reynold Garner MD Work Phone: Start: 04-11-2021 Gluc bld gluc mntr dev cleared fda spec home use Jamie Groubert DO Work Phone: Start: 04-11-2021 Gluc bld gluc mntr dev cleared fda spec home use Kamran Cassidy MD Work Phone: Start: 04-11-2021 Gluc bld gluc mntr dev cleared fda spec home use Jamie Groubert DO Work Phone: Start: 04-11-2021 Basic metabolic panel calcium total Muna Velázquez MD Work Phone: Start: 04-10-2021 Gluc bld gluc mntr dev cleared fda spec home use Jamie Groubert DO Work Phone: Start: 04-10-2021 Urnls dip stick/tablet rgnt auto w/o microscopy Godfrey Rodriguez MD Work Phone: Start: 04-10-2021 Culture bacterial quanttative colony count urine Jamie Groubert DO Work Phone: Start: 04-10-2021 Gluc bld gluc mntr dev cleared fda spec home use Jamie Groubert DO Work Phone: Start: 04-10-2021 End: 04-10-2021 Creatinine blood Jamie Groubert DO Work Phone: Start: 04-10-2021 Gluc bld gluc mntr dev cleared fda spec home use Jamie Groubert DO Work Phone: Start: 04-10-2021 Basic metabolic panel calcium total Muna Velázquez MD Work Phone: Start: 04-09-2021 Gluc bld gluc mntr dev cleared fda spec home use Jamie Groubert DO Work Phone: Start: 04-09-2021 Gluc bld gluc mntr dev cleared fda spec home use Kamran Cassidy MD Work Phone: Start: 04-09-2021 Gluc bld gluc mntr dev cleared fda spec home use Jamie Groubert DO Work Phone: Start: 04-09-2021 Gluc bld gluc mntr dev cleared fda spec home use Jamie Groubert DO Work Phone: Start: 04-09-2021 Basic metabolic panel calcium total Muna Velázquez MD Work Phone: Start: 04-08-2021 Gluc bld gluc mntr dev cleared fda spec home use Jamie Groubert DO Work Phone: Start: 04-08-2021 Creatinine other source Radha العلي MD Work Phone: Start: 04-08-2021 Gluc bld gluc mntr dev cleared fda spec home use Jamie Groubert DO Work Phone: Start: 04-08-2021 Gluc bld gluc mntr dev cleared fda spec home use Jamie Groubert DO Work Phone: Start: 04-08-2021 Gluc bld gluc mntr dev cleared fda spec home use Jamie Groubert DO Work Phone: Start: 04-08-2021 Basic metabolic panel calcium total Muna Velázquez MD Work Phone: Start: 04-07-2021 Gluc bld gluc mntr dev cleared fda spec home use Jamie Groubert DO Work Phone: Start: 04-07-2021 Gluc bld gluc mntr dev cleared fda spec home use Kamran Cassidy MD Work Phone: Start: 04-07-2021 Gluc bld gluc mntr dev cleared fda spec home use Jamie Groubert DO Work Phone: Start: 04-07-2021 Gluc bld gluc mntr dev cleared fda spec home use Jamie Groubert DO Work Phone: Start: 04-07-2021 Basic metabolic panel calcium total Muna Velázquez MD Work Phone: Start: 04-06-2021 Gluc bld gluc mntr dev cleared fda spec home use Jamie Groubert DO Work Phone: Start: 04-06-2021 Gluc bld gluc mntr dev cleared fda spec home use Jamie Groubert DO Work Phone: Start: 04-06-2021 Gluc bld gluc mntr dev cleared fda spec home use Jamie Groubert DO Work Phone: Start: 04-06-2021 Gluc bld gluc mntr dev cleared fda spec home use Jamie Groubert DO Work Phone: Start: 04-06-2021 Basic metabolic panel calcium total Muna Velázquez MD Work Phone: Start: 04-05-2021 Gluc bld gluc mntr dev cleared fda spec home use Jamie Groubert DO Work Phone: Start: 04-05-2021 Gluc bld gluc mntr dev cleared fda spec home use Jamie Groubert DO Work Phone: Start: 04-05-2021 Gluc bld gluc mntr dev cleared fda spec home use Jamie Groubert DO Work Phone: Start: 04-05-2021 Gluc bld gluc mntr dev cleared fda spec home use Jamie Groubert DO Work Phone: Start: 04-05-2021 Basic metabolic panel calcium total Muna Velázquez MD Work Phone: Start: 04-04-2021 Gluc bld gluc mntr dev cleared fda spec home use Jamie Groubert DO Work Phone: Start: 04-04-2021 Gluc bld gluc mntr dev cleared fda spec home use Jamie Groubert DO Work Phone: Start: 04-04-2021 Gluc bld gluc mntr dev cleared fda spec home use Jamie Groubert DO Work Phone: Start: 04-04-2021 Basic metabolic panel calcium total Muna Velázquez MD Work Phone: Start: 04-03-2021 Gluc bld gluc mntr dev cleared fda spec home use Jamie Groubert DO Work Phone: Start: 04-03-2021 Gluc bld gluc mntr dev cleared fda spec home use Jamie Groubert DO Work Phone: Start: 04-03-2021 Gluc bld gluc mntr dev cleared fda spec home use Jamie Groubert DO Work Phone: Start: 04-03-2021 Gluc bld gluc mntr dev cleared fda spec home use Jamie Groubert DO Work Phone: Start: 04-03-2021 Basic metabolic panel calcium total Muna Velázquez MD Work Phone: Start: 04-02-2021 Gluc bld gluc mntr dev cleared fda spec home use Jamie Groubert DO Work Phone: Start: 04-02-2021 Gluc bld gluc mntr dev cleared fda spec home use Jamie Groubert DO Work Phone: Start: 04-02-2021 Gluc bld gluc mntr dev cleared fda spec home use Jamie Groubert DO Work Phone: Start: 04-02-2021 Gluc bld gluc mntr dev cleared fda spec home use Jamie Groubert DO Work Phone: Start: 04-02-2021 Basic metabolic panel calcium total Muna Velázquez MD Work Phone: Start: 04-01-2021 Gluc bld gluc mntr dev cleared fda spec home use Jamie Groubert DO Work Phone: Start: 04-01-2021 Gluc bld gluc mntr dev cleared fda spec home use Jamie Groubert DO Work Phone: Start: 04-01-2021 Gluc bld gluc mntr dev cleared fda spec home use Jamie Groubert DO Work Phone: Start: 04-01-2021 Gluc bld gluc mntr dev cleared fda spec home use Jamie Groubert DO Work Phone: Start: 04-01-2021 Basic metabolic panel calcium total Muna Velázquez MD Work Phone: Start: 03-31-2021 Gluc bld gluc mntr dev cleared fda spec home use Jamie Groubert DO Work Phone: Start: 03-31-2021 Gluc bld gluc mntr dev cleared fda spec home use Jamie Groubert DO Work Phone: Start: 03-31-2021 Gluc bld gluc mntr dev cleared fda spec home use Jamie Groubert DO Work Phone: Start: 03-31-2021 Gluc bld gluc mntr dev cleared fda spec home use Jamie Groubert DO Work Phone: Start: 03-31-2021 Basic metabolic panel calcium total Muna Velázquez MD Work Phone: Start: 03-30-2021 Gluc bld gluc mntr dev cleared fda spec home use Jamie Groubert DO Work Phone: Start: 03-30-2021 Gluc bld gluc mntr dev cleared fda spec home use Jamie Groubert DO Work Phone: Start: 03-30-2021 Gluc bld gluc mntr dev cleared fda spec home use Jamie Groubert DO Work Phone: Start: 03-30-2021 Gluc bld gluc mntr dev cleared fda spec home use Jamie Groubert DO Work Phone: Start: 03-30-2021 Basic metabolic panel calcium total Muna Velázquez MD Work Phone: Start: 03-29-2021 Gluc bld gluc mntr dev cleared fda spec home use Jamie Groubert DO Work Phone: Start: 03-29-2021 Gluc bld gluc mntr dev cleared fda spec home use Jamie Groubert DO Work Phone: Start: 03-29-2021 Gluc bld gluc mntr dev cleared fda spec home use Jamie Groubert DO Work Phone: Start: 03-29-2021 Gluc bld gluc mntr dev cleared fda spec home use Jamie Groubert DO Work Phone: Start: 03-29-2021 Basic metabolic panel calcium total Muna Velázquez MD Work Phone: Start: 03-28-2021 Gluc bld gluc mntr dev cleared fda spec home use Jamie Groubert DO Work Phone: Start: 03-28-2021 Gluc bld gluc mntr dev cleared fda spec home use Jamie Groubert DO Work Phone: Start: 03-28-2021 Gluc bld gluc mntr dev cleared fda spec home use Jamie Groubert DO Work Phone: Start: 03-28-2021 Basic metabolic panel calcium total Muna Velázquez MD Work Phone: Start: 03-28-2021 Gluc bld gluc mntr dev cleared fda spec home use Jamie Groubert DO Work Phone: Start: 03-28-2021 Assay of phosphorus inorganic Leonel huang MD Work Phone: Start: 03-27-2021 Gluc bld gluc mntr dev cleared fda spec home use Jamie Groubert DO Work Phone: Start: 03-27-2021 Gluc bld gluc mntr dev cleared fda spec home use Kamran Cassidy MD Work Phone: Start: 03-27-2021 Gluc bld gluc mntr dev cleared fda spec home use Jamie Groubert DO Work Phone: Start: 03-27-2021 Gluc bld gluc mntr dev cleared fda spec home use Jamie Groubert DO Work Phone: Start: 03-27-2021 Assay of phosphorus inorganic Leonel huang MD Work Phone: Start: 03-27-2021 BASIC METABOLIC PANEL W/ REFLEX TO MG FOR LOW K Juan Betancourtar DO Work Phone: Start: 03-26-2021 Gluc bld gluc mntr dev cleared fda spec home use Jamie Groubert DO Work Phone: Start: 03-26-2021 Gluc bld gluc mntr dev cleared fda spec home use Jamie Groubert DO Work Phone: Start: 03-26-2021 Gluc bld gluc mntr dev cleared fda spec home use Kamran Cassidy MD Work Phone: Start: 03-26-2021 Radiologic exam chest 2 views Muna dickinson MD Work Phone: Start: 03-26-2021 Gluc bld gluc mntr dev cleared fda spec home use Jamie Groubert DO Work Phone: Start: 03-26-2021 Assay of phosphorus inorganic Lenoel huang MD Work Phone: Start: 03-25-2021 Gluc bld gluc mntr dev cleared fda spec home use Jamie Groubert DO Work Phone: Start: 03-25-2021 Gluc bld gluc mntr dev cleared fda spec home use Jamie Groubert DO Work Phone: Start: 03-25-2021 Gluc bld gluc mntr dev cleared fda spec home use Jamie Groubert DO Work Phone: Start: 03-25-2021 Gluc bld gluc mntr dev cleared fda spec home use Jamie Groubert DO Work Phone: Start: 03-25-2021 Assay of phosphorus inorganic Leonel huang MD Work Phone: Start: 03-24-2021 Gluc bld gluc mntr dev cleared fda spec home use Jamie Groubert DO Work Phone: Start: 03-24-2021 Gluc bld gluc mntr dev cleared fda spec home use Jamie Groubert DO Work Phone: Start: 03-24-2021 Gluc bld gluc mntr dev cleared fda spec home use Jamie Groubert DO Work Phone: Start: 03-24-2021 Gluc bld gluc mntr dev cleared fda spec home use Jamie Groubert DO Work Phone: Start: 03-24-2021 Assay of phosphorus inorganic Leonel huang MD Work Phone: Start: 03-23-2021 Gluc bld gluc mntr dev cleared fda spec home use Jamie Groubert DO Work Phone: Start: 03-23-2021 Gluc bld gluc mntr dev cleared fda spec home use Kamran Cassidy MD Work Phone: Start: 03-23-2021 Gluc bld gluc mntr dev cleared fda spec home use Jamie Groubert DO Work Phone: Start: 03-23-2021 Calcium ionized Leonel Sood MD Work Phone: Start: 03-22-2021 Gluc bld gluc mntr dev cleared fda spec home use Jamie Groubert DO Work Phone: Start: 03-22-2021 Gluc bld gluc mntr dev cleared fda spec home use Jamie Groubert DO Work Phone: Start: 03-22-2021 Gluc bld gluc mntr dev cleared fda spec home use Jamie Groubert DO Work Phone: Start: 03-22-2021 Calcium ionized Leonel Sood MD Work Phone: Start: 03-21-2021 End: 03-21-2021 Special diagnostic procedures Reynold gtz MD Work Phone: Start: 03-21-2021 BLOOD GAS, ARTERIAL Leonel Sood MD Work Phone: Start: 03-21-2021 End: 03-21-2021 Calcium ionized Leonel Sood MD Work Phone: Start: 03-20-2021 Gluc bld gluc mntr dev cleared fda spec home use Kamran Cassidy MD Work Phone: Start: 03-20-2021 LASER PRINTING OPERATOR CLINICAL BEDSIDE SWALLOW EVALUATION & TREATMENT Michaela Chan DO Work Phone: Start: 03-20-2021 EXTUBATION Michaela Chan DO Work Phone: Start: 03-20-2021 Gluc bld gluc mntr dev cleared fda spec home use Gloria Esquivel MD Start: 03-20-2021 Gluc bld gluc mntr dev cleared fda spec home use Gloria Esquivel MD Start: 03-20-2021 Radiologic exam chest single view Michaela Chan DO Work Phone: Start: 03-20-2021 BLOOD GAS, ARTERIAL Leonel Sood MD Work Phone: Start: 03-20-2021 Calcium ionized Leonel Sood MD Work Phone: Start: 03-20-2021 Gluc bld gluc mntr dev cleared fda spec home use Gloria Esquivel MD Start: 03-19-2021 Gluc bld gluc mntr dev cleared fda spec home use Gloria Esquivel MD Start: 03-19-2021 Gluc bld gluc mntr dev cleared fda spec home use Gloria Esquivel MD Start: 03-19-2021 Gluc bld gluc mntr dev cleared fda spec home use Gloria Esquivel MD Start: 03-19-2021 Gluc bld gluc mntr dev cleared fda spec home use Gloria Esquivel MD Start: 03-19-2021 Radiologic exam chest single view Michaela Chan DO Work Phone: Start: 03-19-2021 BLOOD GAS, ARTERIAL Leonel Sood MD Work Phone: Start: 03-19-2021 Calcium ionized Leonel Sood MD Work Phone: Start: 03-18-2021 Gluc bld gluc mntr dev cleared fda spec home use Gloria Esquivel MD Start: 03-18-2021 Gluc bld gluc mntr dev cleared fda spec home use Kamran Cassidy MD Work Phone: Start: 03-18-2021 Gluc bld gluc mntr dev cleared fda spec home use Gloria Esquivel MD Start: 03-18-2021 Gluc bld gluc mntr dev cleared fda spec home use Kamran Cassidy MD Work Phone: Start: 03-18-2021 Radiologic exam chest single view Michaela Chan DO Work Phone: Start: 03-18-2021 BLOOD GAS, ARTERIAL Leonel Sood MD Work Phone: Start: 03-18-2021 Calcium ionized Leonel Sood MD Work Phone: Start: 03-17-2021 Gluc bld gluc mntr dev cleared fda spec home use Gloria Esuqivel MD Start: 03-17-2021 Gluc bld gluc mntr dev cleared fda spec home use Gloria Esquivel MD Start: 03-17-2021 Hepatitis b surf antibody hbsab Reynold Garner MD Work Phone: Start: 03-17-2021 Iaad ia hepatitis b surface antigen Reynold Garner MD Work Phone: Start: 03-17-2021 Gluc bld gluc mntr dev cleared fda spec home use Kamran Cassidy MD Work Phone: Start: 03-17-2021 Hepatitis b surf antibody hbsab Reynold Garner MD Work Phone: Start: 03-17-2021 Iaad ia hepatitis b surface antigen Reynold Garner MD Work Phone: Start: 03-17-2021 Radiologic exam abdomen 1 view Cintia Gongora MD Work Phone: Start: 03-17-2021 Echo tthrc r-t 2d w/wom-mode compl spec&colr d Swapnil Larson MD Work Phone: Start: 03-17-2021 Gluc bld gluc mntr dev cleared fda spec home use Gloria Esquivel MD Start: 03-17-2021 Gluc bld gluc mntr dev cleared fda spec home use Gloria Esquivel MD Start: 03-17-2021 Radiologic exam chest single view Michaela Chan DO Work Phone: Start: 03-17-2021 Gluc bld gluc mntr dev cleared fda spec home use Gloria Esquivel MD Start: 03-17-2021 BLOOD GAS, ARTERIAL Leonel Sood MD Work Phone: Start: 03-17-2021 Calcium ionized Leonel Sood MD Work Phone: Start: 03-16-2021 Gluc bld gluc mntr dev cleared fda spec home use Gloria Esquivel MD Start: 03-16-2021 Gluc bld gluc mntr dev cleared fda spec home use Gloria Esquivel MD Start: 03-16-2021 Gluc bld gluc mntr dev cleared fda spec home use Kamran Cassidy MD Work Phone: Start: 03-16-2021 Gluc bld gluc mntr dev cleared fda spec home use Gloria Esquivel MD Start: 03-16-2021 Radiologic exam chest single view Dalia Evans DO Work Phone: Start: 03-16-2021 BLOOD GAS, ARTERIAL Leonel Sood MD Work Phone: Start: 03-16-2021 Calcium ionized Leonel Sood MD Work Phone: Start: 03-16-2021 Drug screen quantitative vancomycin Gloria Esquivel MD Start: 03-16-2021 Gluc bld gluc mntr dev cleared fda spec home use Gloria Esquivel MD Start: 03-15-2021 OPERATIVE REPORT 3m Scanning Start: 03-15-2021 Gluc bld gluc mntr dev cleared fda spec home use Gloria Esquivel MD Start: 03-15-2021 Gluc bld gluc mntr dev cleared fda spec home use Gloria Esquivel MD Start: 03-15-2021 Radiologic exam chest single view Reynold Garner MD Work Phone: Start: 03-15-2021 Gluc bld gluc mntr dev cleared fda spec home use Kamran Cassidy MD Work Phone: Start: 03-15-2021 Gluc bld gluc mntr dev cleared fda spec home use Nabeel Jeffries MD Work Phone: Start: 03-15-2021 BLOOD GAS, ARTERIAL Leonel Sood MD Work Phone: Start: 03-15-2021 Blood typing serologic abo Phillip johnson MD Work Phone: Start: 03-15-2021 Calcium ionized Leonel Sood MD Work Phone: Start: 03-14-2021 Drug screen quantitative vancomycin Ligia Escalona MD Work Phone: Start: 03-14-2021 Gluc bld gluc mntr dev cleared fda spec home use Kamran Cassidy MD Work Phone: Start: 03-14-2021 Urnls dip stick/tablet rgnt auto w/o microscopy Reynold Garner MD Work Phone: Start: 03-14-2021 Gluc bld gluc mntr dev cleared fda spec home use Nabeel Jeffries MD Work Phone: Start: 03-14-2021 Gluc bld gluc mntr dev cleared fda spec home use Nabeel Jeffries MD Work Phone: Start: 03-14-2021 Us retroperitoneal real time w/image complete Reynold Garner MD Work Phone: Start: 03-14-2021 Speech and language therapy regime Gloria Esquivel MD Start: 03-14-2021 Gluc bld gluc mntr dev cleared fda spec home use Nabeel Jeffries MD Work Phone: Start: 03-14-2021 BLOOD GAS, ARTERIAL Leonel Sood MD Work Phone: Start: 03-14-2021 Calcium ionized Leonel Sood MD Work Phone: Start: 03-13-2021 BLOOD GAS, ARTERIAL Cathy Beckham D O Work Phone: Start: 03-13-2021 Radiologic exam abdomen 1 view Cathy Beckham DO Work Phone: Start: 03-13-2021 Radiologic exam chest single view Cathy Beckham DO Work Phone: Start: 03-13-2021 Creatinine other source Cathy Colin ch DO Work Phone: Start: 03-13-2021 ADD ON LAB TEST Cathy Beckham D O Work Phone: Start: 03-13-2021 Ecg routine ecg w/least 12 lds w/i&r Cathy Beckham DO Work Phone: Start: 03-13-2021 Blood gases any combination ph pco2 po2 co2 hco3 Muna Velázquez MD Work Phone: Start: 03-13-2021 End: 03-13-2021 Comprehensive metabolic panel Muna dickinson MD Work Phone: Start: 03-13-2021 Gluc bld gluc mntr dev cleared fda spec home use Kamran Cassidy MD Work Phone: Start: 03-13-2021 BLOOD GAS, ARTERIAL Oriana Cho DO Work Phone: Start: 03-13-2021 BLOOD GAS, ARTERIAL Muna Velázquez MD Work Phone: Start: 03-13-2021 Radiologic exam chest single view Muna Velázquez MD Work Phone: Start: 03-13-2021 Gluc bld gluc mntr dev cleared fda spec home use Kamran Cassidy MD Work Phone: Start: 03-13-2021 ADD ON LAB TEST Muna Velázquez MD Work Phone: Start: 03-12-2021 Assay of magnesium Muna Velázquez MD Work Phone: Start: 03-12-2021 Hepatic function panel Muna Velázquez MD Work Phone: Start: 03-12-2021 Gluc bld gluc mntr dev cleared fda spec home use Kamran Cassidy MD Work Phone: Start: 03-12-2021 Gluc bld gluc mntr dev cleared fda spec home use Kamran Cassidy MD Work Phone: Start: 03-12-2021 Gluc bld gluc mntr dev cleared fda spec home use Nabeel Jeffries MD Work Phone: Start: 03-12-2021 Gluc bld gluc mntr dev cleared fda spec home use Nabeel Jeffries MD Work Phone: Start: 03-11-2021 Blood count complete auto&auto difrntl wbc Leonel Sood MD Work Phone: Start: 03-11-2021 Gluc bld gluc mntr dev cleared fda spec home use Nabeel Jeffries MD Work Phone: Start: 03-11-2021 Gluc bld gluc mntr dev cleared fda spec home use Kamran Cassidy MD Work Phone: Start: 03-11-2021 Gluc bld gluc mntr dev cleared fda spec home use Nabeel Jeffries MD Work Phone: Start: 03-11-2021 Blood count complete auto&auto difrntl wbc Leonel Sood MD Work Phone: Start: 03-11-2021 Cul prsmptv pthgnc organism scrn w/colony estimj Muna Velázquez MD Work Phone: Start: 03-10-2021 Drug screen quantitative vancomycin Muna Velázquez MD Work Phone: Start: 03-10-2021 Gluc bld gluc mntr dev cleared fda spec home use Nabeel Jeffries MD Work Phone: Start: 03-10-2021 Gluc bld gluc mntr dev cleared fda spec home use Nabeel Jeffries MD Work Phone: Start: 03-10-2021 Gluc bld gluc mntr dev cleared fda spec home use Kamran Cassidy MD Work Phone: Start: 03-10-2021 Dup-scan xtr veins complete bilateral study Juan Adams DO Work Phone: Start: 03-10-2021 Gluc bld gluc mntr dev cleared fda spec home use Nabeel Jeffries MD Work Phone: Start: 03-10-2021 Assay of magnesium Muna Velázquez MD Work Phone: Start: 03-10-2021 Drug screen quantitative vancomycin Kamran Cassidy MD Work Phone: Start: 03-09-2021 Gluc bld gluc mntr dev cleared fda spec home use Nabeel Jeffries MD Work Phone: Start: 03-09-2021 Gluc bld gluc mntr dev cleared fda spec home use Nabeel Jeffries MD Work Phone: Start: 03-09-2021 Gluc bld gluc mntr dev cleared fda spec home use Nabeel Jeffries MD Work Phone: Start: 03-09-2021 Gluc bld gluc mntr dev cleared fda spec home use Nabeel Jeffries MD Work Phone: Start: 03-09-2021 Blood count complete auto&auto difrntl wbc Leonel Sood MD Work Phone: Start: 03-08-2021 Culture bacterial blood aerobic w/id isolates Muna Velázquez MD Work Phone: Start: 03-08-2021 End: 03-08-2021 Hemoglobin glycosylated a1c Muna Katz ch, MD Work Phone: Start: 03-08-2021 Ecg routine ecg w/least 12 lds w/i&r Kodak Dove MD Work Phone: Start: 03-08-2021 C-reactive protein Enrique Modi MD Work Phone: Start: 03-08-2021 CULTURE, BLOOD 1 Muna Velázquez MD Work Phone: Start: 03-08-2021 GENERIC LABORATORY CHARGE Enrique tolbert MD Work Phone: Start: 03-08-2021 Radiologic exam chest single view Enrique Modi MD Work Phone: Start: 03-08-2021 Radiologic examination tibia & fibula 2 views Enrique Modi MD Work Phone: Start: 03-08-2021 ADD ON LAB TEST Muna Velázquez MD Work Phone: Start: 03-08-2021 Non-invasive physiologic study extremity 3 levls Jagdeep Anderson MD Work Phone: Start: 03-08-2021 COVID-19 Jagdeep Anderson MD Work Phone: Start: 03-08-2021 Comprehensive metabolic panel Jagdeep girard MD Work Phone: Start: 03-08-2021 Radex foot complete minimum 3 views Jagdeep Anderson MD Work Phone: Start: 08-06-2019 Clair King Plan of Treatment Date Care Activity Detail Author Start: 02-03-2026 Creatinine measurement Creatinine Level [facility] Start: 02-03-2026 Potassium measurement Potassium Level [facility] [employer] Start: 10-18-2025 Creatinine measurement [facility] Start: 10-18-2025 Potassium measurement [facility] Start: 12-01-2024 COVID-19 Vaccine ( season) COVID-19 Vaccine ( season) [facility] Start: 12-01-2024 Influenza vaccination Influenza Vaccine (#1) [facility] Start: 12-01-2024 [facility] Start: 11-28-2024 Creatinine measurement [facility] Start: 11-28-2024 Diabetes: Estimated Glomerular Filtration Rate for Kidney Health Diabetes: Estimated Glomerular Filtration Rate for Kidney Health [facility] [employer] Start: 11-28-2024 Potassium measurement [facility] Start: 11-28-2024 [facility] Start: 11-27-2024 Creatinine measurement Creatinine Level [facility] Start: 11-27-2024 Diabetes: Estimated Glomerular Filtration Rate for Kidney Health Diabetes: Estimated Glomerular Filtration Rate for Kidney Health [facility] [employer] Start: 11-27-2024 Potassium measurement Potassium Level [facility] [employer] Start: 08-08-2024 Creatinine measurement [facility] Start: 08-08-2024 Diabetes: Estimated Glomerular Filtration Rate for [facility] Diabetes: Estimated Glomerular Filtration Rate for Kidney Health [facility] Start: 08-08-2024 Potassium measurement [facility] Start: 08-08-2024 [facility] Start: 07-30-2024 Echocardiography Echocardiogram [facility] Start: 07-30-2024 [facility] Start: 07-29-2024 Hemoglobin A1c measurement [facility] Start: 07-29-2024 Screening for malignant neoplasm of colon [facility] Start: 07-08-2024 End: 07-08-2024 Patient encounter procedure 07/08/2024 1:50 PM EDT Office Visit [facility] [place] [address] [place] [address] Bashir Vásquez MD [address] [place] [address] [facility] [place] Start: 04-02-2024 Medicare Advantage Annual Wellness Visit Medicare Advantage Annual Wellness Visit [facility] Start: 04-02-2024 [facility] Start: 01-03-2024 End: 01-03-2024 Admission to same day surgery center [facility] Comment on above: CYSTOSCOPY [23642 (CPT )] Start: 01-03-2024 End: 01-03-2024 ambulatory [facility] Start: 01-03-2024 End: 01-03-2024 Cysto w/insert ureteral stent [facility] Start: 01-03-2024 End: 01-03-2024 Cysto w/ureteroscopy w/lithotripsy [facility] Start: 01-03-2024 End: 01-03-2024 Cystourethroscopy [facility] Start: 01-03-2024 Subsequent hospital visit by physician [facility] Start: 12-02-2023 End: 11-24-2024 Bacteria identified in Urine by Culture Urine culture Microbiology Routine Acute cystitis without hematuria Expected: 12/02/2023 (Approximate), Expires: 11/24/2024 [facility] Work Phone: Comment on above: Expected: 12/02/2023 (Approximate), Expi res: 11/24/2024 Start: 12-02-2023 COVID-19 Vaccine (4 - 2023-24 season) COVID-19 Vaccine ( season) [facility] Start: 12-02-2023 COVID-19 Vaccine ( season) COVID-19 Vaccine ( season) [facility] Start: 12-02-2023 Influenza vaccination [facility] Start: 12-02-2023 [facility] Start: 10-05-2023 End: 10-05-2023 Patient encounter procedure 10/05/2023 10:20 AM EDT Procedure Visit [facility] [address] [place] [phone] Bashir Vásquez MD [address] [place] [phone] [facility] Start: 09-27-2023 End: 09-27-2023 Admission to same day surgery center 09/27/2023 10:00 AM EDT - 09/27/2023 12:00 PM EDT Surgery [facility] [address] [place] [phone] Bashir Vásquez MD [address] [place] [phone] CYSTOSCOPY [71292 (CPT )] [facility] Comment on above: CYSTOSCOPY [98149 (CPT )] Start: 09-27-2023 End: 09-27-2023 Anesthesia consultation 09/27/2023 10:00 AM EDT Anesthesia Event [facility] [address] [place] [phone] Abdi Brennan, METHOD CONSULTANT - MANAGER PRESENTATION [address] [place] [address] [place] [address] [facility] Start: 09-27-2023 End: 09-27-2023 Cysto w/insert ureteral stent CYSTOSCOPY WITH INSERTION URETERAL STENT Calculus of ureter 09/27/2023 10:00 AM EDT [facility] Start: 09-27-2023 End: 09-27-2023 Cysto w/ureteroscopy w/lithotripsy CYSTOSCOPY WITH URETEROSCOPY AND OR PYELOSCOPY WITH REMOVAL OR MANIPULATION CALCULUS WITH LITHOTRIPSY Calculus of ureter 09/27/2023 10:00 AM EDT [facility] Start: 09-27-2023 End: 09-27-2023 Cystourethroscopy CYSTOSCOPY Calculus of ureter 09/27/2023 10:00 AM EDT [facility] Start: 09-27-2023 Subsequent hospital visit by physician 09/27/2023 10:00 AM EDT Hospital Encounter [facility] [address] [facility] [place] [address] Bashir Vásquez MD [address] [facility] [address] [place] [address] [facility] Start: 09-17-2023 End: 09-17-2023 ambulatory [facility] Start: 09-12-2023 RSV Immunization for Adults (1 - 1-dose 75+ series) RSV Immunization for Adults (1 - 1-dose 75+ series) [facility] Start: 09-12-2023 [facility] Start: 09-03-2023 End: 09-03-2023 ambulatory [facility] Start: 09-03-2023 End: 09-03-2023 Cysto w/insert ureteral stent [facility] Start: 09-03-2023 End: 09-03-2023 Cysto w/ureteroscopy w/lithotripsy [facility] Start: 09-03-2023 End: 09-03-2023 Cystourethroscopy [facility] Start: 08-22-2023 End: 08-22-2023 ambulatory [facility] Start: 06-11-2023 Diabetes: Urine Albumin-Creatinine Ratio for [facility]ney [facility] Diabetes: Urine Albumin-Creatinine Ratio for Kidney Health [facility] Start: 06-11-2023 Urine screening for protein [facility] Start: 06-11-2023 [facility] Start: 04-02-2023 Medicare Advantage Annual Wellness Visit Medicare Advantage Annual Wellness Visit [facility] Start: 04-02-2023 [facility] Start: 12-01-2022 COVID-19 Vaccine ( season) COVID-19 Vaccine ( season) [facility] Start: 12-01-2022 Influenza vaccination [facility] Start: 12-01-2022 [facility] Start: 09-07-2022 COVID-19 Vaccine (4 - Pfizer series) COVID-19 Vaccine (4 - Pfizer series) [facility] Start: 08-14-2022 End: 08-08-2023 Basic metabolic 1998 panel - Serum or Plasma Basic metabolic panel Lab Routine Chronic kidney disease, unspecified CKD stage Expected: 08/14/2022 (Approximate), Expires: 08/08/2023 [facility] Comment on above: Expected: 08/14/2022 (Approximate), Expi res: 08/08/2023 Start: 08-03-2022 End: 08-03-2022 Admission to same day surgery center 08/03/2022 Surgery Procedural Annette Bejarano DO [address] [facility] [address] [place] [address] CYSTOSCOPY, LEFT URETEROSCOPY WITH HOLMIUM LASER LITHOTRIPSY, LEFT STENT EXCHANGE [38988 (CPT )] [facility] Comment on above: CYSTOSCOPY, LEFT URETEROSCOPY WITH HOLMI UM LASER LITHOTRIPSY, LEFT STENT EXCHANGE [08403 (CPT )] Start: 08-03-2022 End: 08-03-2022 Anesthesia consultation 08/03/2022 Anesthesia Event Procedural Blanca Wood RN [facility] Start: 08-03-2022 End: 08-03-2022 Cysto w/insert ureteral stent CYSTOSCOPY WITH INSERTION URETERAL STENT Calculus of ureter 08/03/2022 12:30 PM EDT [facility] Start: 08-03-2022 End: 08-03-2022 Cysto w/ureteroscopy w/lithotripsy CYSTOSCOPY WITH URETEROSCOPY AND OR PYELOSCOPY WITH REMOVAL OR MANIPULATION CALCULUS WITH LITHOTRIPSY Calculus of ureter 08/03/2022 12:30 PM EDT [facility] Start: 08-03-2022 End: 08-03-2022 Cystourethroscopy CYSTOSCOPY Calculus of ureter 08/03/2022 12:30 PM EDT [facility] Start: 08-03-2022 Subsequent hospital visit by physician 08/03/2022 Hospital Encounter Procedural Annette Bejarano, DO [address] [place] [address] [facility] Start: 07-18-2022 End: 07-18-2022 Patient encounter procedure 07/18/2022 Appointment Radiology [facility] Start: 07-13-2022 End: 07-13-2022 Admission to same day surgery center 07/13/2022 Surgery Procedural Annette Bejarano, DO [address] [place] [address] CYSTOSCOPY, LEFT URETEROSCOPY WITH HOLMIUM LASER LITHOTRIPSY, LEFT STENT EXCHANGE [16118 (CPT )] [facility] Comment on above: CYSTOSCOPY, LEFT URETEROSCOPY WITH HOLMI UM LASER LITHOTRIPSY, LEFT STENT EXCHANGE [45796 (CPT )] Start: 07-13-2022 End: 07-13-2022 ambulatory [facility] Start: 07-13-2022 End: 07-13-2022 Anesthesia consultation 07/13/2022 Anesthesia Event Procedural Shante Morris RN [facility] Start: 07-13-2022 End: 07-13-2022 Cysto w/insert ureteral stent [facility] Start: 07-13-2022 End: 07-13-2022 Cysto w/ureteroscopy w/lithotripsy [facility] Start: 07-13-2022 End: 07-13-2022 Cystourethroscopy [facility] Start: 07-13-2022 Subsequent hospital visit by physician 07/13/2022 Hospital Encounter Procedural Annette Bejarano, DO [address] [place] [address] [facility] Start: 07-04-2022 End: 07-04-2022 ambulatory [facility] Start: 07-04-2022 End: 07-04-2022 Patient encounter procedure 07/04/2022 Office Visit Pulmonology Franchesca Mckeon MD [address] [place] [phone] [facility] Start: 06-10-2022 End: 06-10-2022 Cysto bladder w/ureteral catheterization CYSTOSCOPY AND PYELOGRAM Kidney stone 06/10/2022 3:49 PM [facility] Operating Room Start: 03-08-2022 Hemoglobin A1c measurement [facility] Start: 12-01-2021 Influenza vaccination Influenza Vaccine (#1) [facility] Start: 12-01-2021 [facility] Start: 06-06-2021 Hemoglobin A1c measurement [facility] Start: 04-20-2021 End: 04-20-2021 Evaluation and management of inpatient [facility] [place] Start: 03-09-2021 [facility] Start: 02-10-2021 End: 02-11-2022 Vancomycin - RPh to Dose - IV Piggy Back . ; Indication: Skin and Soft TissueGoal Trough: - Start: 10-Feb-2021 End: 10-Feb-2022 Ordered: 10-Feb-2021 [facility] Other Phone (unformatted): [phone] Start: 02-07-2021 End: 02-08-2022 [facility] Other Phone (unformatted): [phone] Comment on above: TO BE GIVEN IN RADIOLOGY Start: 02-06-2021 End: 02-07-2022 [facility] Other Phone (unformatted): [phone] Comment on above: IF patient HAS a secure IV access & is U nconscious, Conscious, NPO or Unable to Eat or Drink. Repeat until BG reaches 100 mg/dL or greater. Push 2-3 mL/minute. Discontinue once BG reaches 100 mg/dL or greater. IF patient DOES NOT have secure IV access & is Unconscious, Conscious, NPO or Unable to Eat or Drink. Repeat until BG reaches 100 mg/dL or greater. Discontinue once BG reaches 100 mg/dL or greater. Start: 02-02-2021 End: 02-03-2022 [facility] Start: 12-01-2020 [facility] Start: 08-06-2020 Lipid panel [facility] Start: 08-05-2019 Acute on chronic respiratory failure [facility] Start: 01-31-2018 Pneumococcal Vaccine: 65+ Years (2 - PCV) Pneumococcal Vaccine: 65+ Years (2 - PCV) [facility] Start: 01-31-2018 [facility] Start: 2008 Hepatitis B Vaccines (1 of 3 - Risk 3-dose series) Hepatitis B Vaccines (1 of 3 - Risk 3-dose series) [facility] Start: 2008 RSV Immunization aged 60 or older (1 - 1-dose 60+ series) RSV Immunization aged 60 or older (1 - 1-dose 60+ series) [facility] Start: 2008 [facility] Start: 09-12-2003 Screening for osteoporosis [facility] Start: 1998 Screening [facility] malignant neoplasm [facility] Start: 1998 Zoster Vaccines (1 of 2) Zoster Vaccines (1 of 2) [facility] Start: 1998 [facility] Start: 1993 Screening for malignant neoplasm of colon [facility] Start: 1988 Screening for malignant neoplasm of breast [facility] Start: 09-12-1967 DTaP/Tdap/Td Vaccines (1 - Tdap) DTaP/Tdap/Td Vaccines (1 - Tdap) [facility] Start: 09-12-1967 [facility] Start: 1966 Hepatitis C screening [facility] Start: 1966 Urine screening for protein [facility] Start: 1966 [facility] Start: 1960 Depression Monitoring Depression Monitoring [facility] Start: 1960 Depression Screening Depression Screening [facility] Start: 1960 [facility] Start: 1958 Diabetic foot examination [facility] Start: 1958 Glaucoma screening [facility] Start: 1958 Lipid panel [facility] Start: 1958 Preventive dental service [facility] Start: 1953 [facility] Start: 03-13-1949 COVID-19 Vaccine (#1) COVID-19 Vaccine (#1) [facility] Start: 03-13-1949 [facility] Start: 1948 Hepatitis B Vaccines (1 of 3 - 3-dose series) Hepatitis B Vaccines (1 of 3 - 3-dose series) [facility] Start: 1948 Hepatitis C screening [facility] Start: 1948 Lipid panel [facility] Start: 1948 Medicare Advantage Annual Wellness Visit (AWV) Medicare Advantage Annual Wellness Visit (AWV) [facility] Start: 1948 Screening for malignant neoplasm of colon [facility] Start: 1948 Screening for osteoporosis [facility] Start: 1948 [facility] Bacteria identified in Blood by Culture [employer] Work Phone: Bacteria identified in Blood by Culture [employer] Work Phone: End: 03-16-2021 Basic metabolic 2000 panel - Serum or Plasma [employer] Work Phone: Basic metabolic 2000 panel - Serum or Plasma [employer] Work Phone: End: 04-15-2021 Basic metabolic 2000 panel - Serum or Plasma [employer] Work Phone: Blood gas, arterial [employer] Work Phone: End: 07-30-2023 Blood gases, arterial measurement [facility] [employer] End: 07-30-2023 Blood gases, venous measurement [employer] Work Phone: End: 07-31-2023 Blood gases, venous measurement [employer] Work Phone: CBC W Auto Different ial panel - Blood [employer] Work Phone: End: 04-15-2021 CBC W Auto Differential panel - Blood [employer] Work Phone: CBC W Auto Different ial panel - Blood [employer] Work Phone: End: 04-10-2021 Culture, Urine [employer] Work Phone: Glucose [Mass/volume ] in Serum or Plasma [employer] Work Phone: Glucose [Mass/volume ] in Serum or Plasma [employer] Work Phone: Glucose [Mass/volume ] in Serum or Plasma [employer] Work Phone: End: 03-20-2021 Hemodialysis inpatient [employer] Work Phone: End: 03-22-2021 Hemodialysis inpatient [employer] Work Phone: End: 12-21-2021 Intermittent pulse oximetry [facility] Work Phone: End: 10-11-2024 Methicillin resistant Staphylococcus aureus (MRSA) DNA [Presence] in Nose by EZIO with probe detection [employer] Work Phone: NSTEMI, initial epis ode of care NSTEMI, initial episode of care [facility] Oxygen therapy [[facility] Data Set] [employer] Work Phone: Phosphate [Mass/volu me] in Serum or Plasma [employer] Work Phone: End: 04-15-2021 Phosphate [Mass/volume] in Serum or Plasma [employer] Work Phone: End: 07-31-2023 POCT venous blood gas [employer] End: 03-13-2021 Respiratory care evaluation only [employer] Work Phone: End: 08-06-2022 RF Guidance for removal of tunneled CV catheter [employer] Work Phone: Comment on above: Once for 1 Occurrences starting 08/07/19 23 until 08/06/2022 End: 04-09-2021 Urea Nitrogen, 24 hr Urine [employer] Work Phone: End: 11-28-2023 Vancomycin [Mass/volume] in Serum or Plasma --trough [employer] Work Phone: Immunizations Immunization Date Immunization Notes Care Provider Fa [facility] 01-29-2025 influenza vaccine A& B surf ant adjuvanted (Fluad) HIGH-DOSE injection 0.5 mL Mario Portillo MD Work Phone: [facility] [employer] 01-04-2021 influenza virus vacc ine, unspecified formulation Mario Portillo MD Work Phone: [employer] 01-07-2018 influenza, high dose seasonal, preservative-free Kamran Cassidy MD Work Phone: [employer] Work Phone: 01-07-2018 influenza virus vacc ine, unspecified formulation Annette Bejarano DO Work Phone: [facility] [employer] 01-31-2017 influenza virus vacc ine, unspecified formulation Kamran Cassidy MD Work Phone: [facility] Work Phone: 01-31-2017 pneumococcal polysaccharide vaccine, 23 valent Kamran Cassidy MD Work Phone: [facility] Work Phone: Payers Date Payer Category Payer Self-pay 2021 Medicare [id number] 2021 Medicare HMO [id number] 2021 Medicare [id number]. [id number] 2019 Medicaid [id number] 2019 Medicaid [id number] 1. [id number] 2014 Medicare [id number] Unknown Unknown [id number] Social History Date Type Detail Facility Assertion Tobacco smoking consumption unknown (finding) [facility] Work Phone: Tobacco smoking consumption unknown [facility] Start: 1950 Sex Assigned At [facility] Work Phone: Start: 05-30-2022 End: 08-02-2022 Exposure to SARS-CoV-2 (event) Not sure [facility] Start: 06-09-2022 Tobacco smoking status NHIS Never smoked tobacco [facility] Start: 06-09-2022 Tobacco use and exposure Smokeless tobacco non-user [facility] [employer] Start: 06-10-2022 End: 01-29-2025 Alcohol intake Lifetime non-drinker (finding) [facility] Start: 06-09-2022 History SDOH Alcohol Frequency 1 [facility] Start: 06-09-2022 History SDOH Alcohol Std Drinks 0 [facility] Start: 01-08-2023 End: 01-29-2025 History of Social function [facility] Start: 01-08-2023 End: 01-29-2025 Humiliation, Afraid, Rape, and Kick questionnaire [HARK] [facility] Within the last year , have you been afraid of your partner or ex-partner? No [facility] How often to you hav e a drink containing alcohol? Never [facility] How many standard dr inks containing alcohol do you have on a typical day? Patient does not drink [facility] Start: 01-09-2023 Sexual orientation Heterosexual (finding) [facility] Start: 10-31-2021 Sex Female (finding) [facility] (I/We) worried wheth er (my/our) food would run out before (I/we) got money to buy more. Never true [facility] Medical Equipment Procedure Code Equipment Code Equipment Origin al Text Equipment Identifier Dates [id number] Start: 06-15-2022 [id number] Start: 06-10-2022 [id number] FDA Start: 08-03-2022 [id number] Start: 07-31-2023 [id number] Start: 11-25-2023 Functional Status Date Assessment Result Facility Functional observable [facility] NEGATED: Highlighted row Functional performance Functional status health issues are not documented Disease [facility] Internal [facility] Work Phone: Mental Status Date Assessment Result Facility 02-08-2021 Cognitive functi ons [id number] [facility] Other Phone (unformatted): [phone] 02-06-2021 Cognitive functi ons :16 [facility] NEGATED: Highlighted row Cognitive function [Interpretation] Cognitive status health issues are not documented Disease [facility] Internal Medicine Work Phone: Clinical Notes 02-02-2021 to 02-04-2025 Karen Noel LPN - 02/04/2025 1:06 PM Fermin Noel LPN - 02/04/2025 1:06 PM Gabby Cross RN - 02/04/2025 12:55 AM Gabby Cross RN - 02/03/2025 2:34 AM ESTDismargo Instr - COCAttachments Note Date & Type Note Facility 02-04-2025 Nurse Note Report called to Erika at [facility]. [facility] 02-04-2025 Nurse Note Report called to Erika at [facility]. At 0055, this RN attempted to collect patients blood work. Patient refused. Patient educated. Patient ultimately refusing. She stated, "I do not want to be poked anymore, no no no." Physician notified. Will continue to monitor. At 0200, this nurse attempted to draw patients morning blood labs. Patient yelled, "Nooo get out." Patient educated. Asked patient if phlebotomy could try to get her blood labs, patient continued to refuse. Patient stated, "just get out I do not want anything." Patient educated. This nurse check patient's incontinent management device and linens. External cath working sufficiently and linens/chucks are dry. Patient's call light and belongings remains within reach. Will continue to monitor. At 2109, this nurse attempted to give patient her nightly oral medications. Patient refused. Patient yelling, "I do not want any of it." Patient only allowed this nurse to give her the ordered nightly lantus. Patient educated, but ultimately refused all oral medications. Call light remains within reach of the patient. Will continue to monitor. Pt throughout shift refusing turns and incontinece care. Pt educated multiple times on relieving pressure to help preent bed sores. Pt declined. Pt also refusing to have purwick removed at this time. Dr. Goetz Notified This RN and GIGI Castle attempting to provide incontinence care to pt. During incontinence care pt started getting increasingly agitated and started spitting at staff. Pt remains confused at this time. Alert and oriented to self and place. Pt stated she's upset at this time she's being treated in the hospital and has asked for all measures to be stopped. Pt also refusing insulin and meals at this time. Dr. Goetz Notified. Patient refused her PO medication and morning labs to be drawn she keeps yelling to get out of her room education but patient is not agreeable. Patient refused to take her night medications was only able to administer her insulin shots. Will continue to monitor Patient refusing all medications, refusing to have blood glucose checked, and refusing to be turned. Patient refusing all meds at present. Patient refusing to allow staff to turn patient. Patient screaming to get out of her room. Patient incontinent of urine. Wound Care consulted for Pressure Injury Prevention. Pt's Alex score= 12 on 01/30 Pt's pressure points assessed. Pt turned with max assist of 2 (this RN and car shunter) for posterior assessment. Pt's Heels, Buttocks/coccyx, Back, Elbows, Occiput and ears all intact. [place] and blanchable tissues noted to bilateral heels and left lateral foot. Scabbed area noted to plantar aspect of right foot. Pt states this area has been present for "a really long time." See photo in media tab. Female external catheter in place. Skin intact to medial thighs and labia. Linear blanchable erythema noted to left medial thigh and to bilateral labia. Pt unable to lift/move right leg. Pt able to slightly move left leg but unable to adequately bend knee or abduct hip to allow for pressure relief of purewick device. Purewick removed at this time. Pt incontinent of large amount of urine. Pads changed, incontinence care provided. Instructed pt on pressure injury prevention and importance of turning/postioning every 2hrs while in bed and every 15 min while sitting in chair. Verbalized understanding but recommend frequent reinforcement d/t pt confusion. Prevention Measures in place, including: [place] sheet with pillows/wedges, Foam heel protectors (obtained and applied), Heels elevated off bed on pillows, HeelMedix boots (ordered for pt), Zinc/Moisture Barrier ointment (obtained), Waffle chair cushion (obtain if out of bed to chair). Skin Care precaution order set in place. Dietitian consult in place. PT consult completed, see note from 01/30. D/W nursing staff. Will continue to follow pt. Please secure chat for any questions or concerns. Thi Buenrostro RN Pt A&0 to self only. Pts o2 is 89-90%. When attempting to apply o2. Pt starts yelling "no" and moving her head side to side. Attempted to educate pt but pt states "no means no." When rolling pt to get pt clean, pt is screaming the whole time stating her legs hurt. Reassured pt that we needed to get her clean. Pts med list was updated. Message sent to Dr. Goetz. documented in this encounter [facility] 02-04-2025 Progress note Formatting of t his note might be different from the original. MAR & Discharge med list transmitted to [facility] per [facility] request. [facility]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 Meds[4] Assessment Data: (CAT1) Reviewed 3 or more notes from different specialty or health system (each=1). (CAT1) Reviewed 3 or more labs/studies ordered by another provider not previously counted (each=1, panels count as 1). (LOW: 2x CAT1 or independent historian MOD: 3x CAT1 or 1x CAT3 EXTENSIVE: 3x CAT1 and 1x CAT3) Acute, acute on chronic, unstable/uncontrolled chronic problems/diagnoses: Acute metabolic encephalopathy. Delirium with agitation anxiety episodes. Prn seroquel Urinary tract infection with Klebseilla and E coli S/p Pip-ellyn 01/29-02/02 Mild hypernatremia. Insulin-dependent diabetes mellitus type 2 with hyperglycemia. Insulin 30 units nighlty Ssi Hypoglycemia protocol Lower extremity edema and erythema No improvement with antibiotics - if worsening next step would be to try Vancomycin US venous duplex ordered. Candidiasis to skin fold Miconazole powder. Stable chronic problems affecting care, new non-acute diagnoses: Congestive heart failure with preserved ejection fraction of 63% from 07/2023. Bumetanide 1 mg PO BID Atrial fibrillation on Eliquis. Dementia-on Aricept. Insulin-dependent diabetes mellitus with peripheral neuropathy Baclofen and gabapentin Morbid obesity - Plan As a result of the above findings & factors, the following mgmt was pursued: - 02/03- follow up with palliative and goals of care - refusing labs for the past 2 days, - am labs, replace lytes prn - PT/OT/CM/SW - delirium precautions: increase activity and limit nighttime disturbances - DVT prophylaxis: encourage ambulation and already anticoagulated Complexity: Chronic illness with severe exacerbation, progression, or side effect of tx (HIGH). Risk: Admission to hospital-level care was considered or occurred (HIGH). Advance Directive: Full Code Anticipated Discharge - Date - 02/04 - Location - 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 No Tesha Mcnamara MD Division of Hospitalist Medicine [facility] [1] Past Medical History: Diagnosis Date A-fib (HCC) Anemia Diabetes (HCC) Lymphedema Obesity [2] acetaminophen, 325 mg, Oral, TID apixaban, 5 mg, Oral, BID baclofen, 5 mg, Oral, TID bumetanide, 1 mg, Oral, BID donepezil, 10 mg, Oral, Nightly gabapentin, 300 mg, Oral, TID influenza, 0.5 mL, IntraMUSCular, Prior to discharge insulin glargine, 30 Units, SubCUTAneous, Nightly insulin lispro, 0-12 Units, SubCUTAneous, TID WC And insulin lispro, 0-12 Units, SubCUTAneous, Nightly miconazole, , Topical, BID Petrolatum, , Topical, BID senna-docusate sodium, 2 tablet, Oral, Nightly [3] PRN medications: acetaminophen OR acetaminophen, dextrose, dextrose, glucagon (rDNA), glucose, naloxone, ondansetron ODT OR ondansetron, oxyCODONE OR oxyCODONE, Petrolatum, polyethylene glycol (PEG) 3350, QUEtiapine [4] Hospitalist Progress Note 02/02/[phone]: Please page me ([phone]) for patient care issues. [phone]: Please page [facility] night Hospitalist for any issues. Subjective: Admit Date: 01/29/2025 PCP: Paige Rivera, DO Room#: [id number] A Interval History: Patient is still having on and off confusion episodes with agitation anxiety episodes. As per nursing patient continued to refuse medications. No other significant overnight issues Adult diet Regular; 5 carb choices (75 gm/meal) @[id number]@ 24HR INTAKE/OUTPUT: Intake/Output Summary (Last 24 hours) at 02/02/2025 1455 Last data filed at 02/01/2025 1900 Gross per 24 hour Intake 240 ml Output 600 ml Net -360 ml Past Medical History: Medical History[1] LABS: CBC: Recent Labs 01/31/25 0455 WBC 5.8 RBC 3.25* HGB 10.4* HCT 33.1* MCV 101.8* RDW 15.8* PLT 195 BMP: Recent Labs 01/31/25 0455 NA 149* K 3.8 CL 111* CO2 27 BUN 17 CREATININE 1.08 GLUCOSE 114 CALCIUM 8.1* ANIONGAP 11 LIVER PROFILE: No results for input(s): "AST", "ALT", "BILITOT", "ALKPHOS", "PROT" in the last 72 hours. No lab exists for component: LABALBU PT/INR: No results for input(s): "PROTIME", "INR" in the last 72 hours. CARDIAC ENZYMES: No results for input(s): "TROPONINI" in the last 72 hours. Procalcitonin: No results found for: PROCAL COVID-19 PCR: No results for input(s): "COVID19" in the last 72 hours. Objective: Vitals: BP 101/86 Pulse 66 Temp 36 C (96.8 F) (Temporal) Resp 19 Ht 5' 5" (1.651 m) SpO2 95% BMI 59.74 kg/m Pulse Ox: SpO2 Av.7 % Min: 95 % Max: 99 % Supplemental O2: General appearance: No apparent distress, appears stated age and cooperative with exam HEENT: Normal cephalic, atraumatic without obvious deformity. Pupils equal, round, and reactive to light. Extra ocular muscles intact. Conjunctivae/corneas clear. Neck: Supple, with full range of motion. No jugular venous distention. Trachea midline. No lymphadenopathy. Respiratory: Normal respiratory effort. Clear to auscultation, bilaterally without Rales/Wheezes/Rhonchi. Cardiovascular: Regular rate and rhythm with normal S1/S2 without murmurs, rubs or gallops. Abdomen: Soft, non-tender, non-distended with normal bowel sounds. No rebound or guarding. Musculoskeletal: No clubbing, cyanosis or edema bilaterally. Full range of motion without deformity, +2 peripheral pulses in all extremities. Skin: Skin color, texture, turgor normal. No rashes or lesions. Neurologic: Neurovascularly intact without any focal sensory/motor deficits. Cranial nerves: II-XII intact, grossly non-focal. Medications: Continuous Meds[2] Scheduled Meds[3] Assessment Acute metabolic encephalopathy. Delirium with agitation anxiety episodes. Urinary tract infection. Mild hyponatremia. Insulin-dependent diabetes mellitus type 2 with hyperglycemia. History of: Congestive heart failure with preserved ejection fraction of 63% from 07/2023. Atrial fibrillation on Eliquis. Dementia-on Aricept. Insulin-dependent diabetes mellitus Plan: Patient is still having some on and off confusion, on and off agitation-started on as needed Seroquel. Palliative consult placed to discuss goals of care cultures are growing Klebsiella and E. Coli-discussed with ID stewardship, finished antibiotic course, discontinued Zosyn on 02/02 Discontinued IV fluids As needed pain medications Blood sugars are well-controlled with the current regimen. Follow-up CBC BMP ordered PT OT evaluation DVT prophylaxis: On Eliquis. Disposition: Discontinued antibiotics on 02/02 Pending palliative consult Pending placement 02/01-tried to call patient's family to update on patient current condition There is no answer. -am labs, replace lytes prn -increase activity -DVT prophylaxis: [] Lovenox [] Heparin [] SCDs [x] Encourage ambulation [] Already on Anticoagulation Advance Directive: Full Code Discharge planning: TBD Godwin Goetz MD Division of Hospitalist Medicine Inpatient Medical Services/[facility] PAGER: [phone] [1] Past Medical History: Diagnosis Date A-fib (HCC) Anemia Diabetes (HCC) Lymphedema Obesity [2] [3] acetaminophen, 325 mg, Oral, TID apixaban, 5 mg, Oral, BID baclofen, 5 mg, Oral, TID bumetanide, 1 mg, Oral, BID donepezil, 10 mg, Oral, Nightly gabapentin, 300 mg, Oral, TID influenza, 0.5 mL, IntraMUSCular, Prior to discharge insulin glargine, 30 Units, SubCUTAneous, Nightly insulin lispro, 0-12 Units, SubCUTAneous, TID WC And insulin lispro, 0-12 Units, SubCUTAneous, Nightly miconazole, , Topical, BID Petrolatum, , Topical, BID senna-docusate sodium, 2 tablet, Oral, Nightly Hospitalist Progress Note 02/01/2025 [phone]: Please page me ([phone]) for patient care issues. [phone]: Please page [facility] night Hospitalist for any issues. Subjective: Admit Date: 01/29/2025 PCP: Paige Rivera, DO Room#: [id number]/[id number] A Interval History: Patient is still having on and off confusion episodes with agitation anxiety episodes. As per nursing patient continued to refuse medications. No other significant overnight issues Adult diet Regular; 5 carb choices (75 gm/meal) @[id number]@ 24HR INTAKE/OUTPUT: No intake or output data in the 24 hours ending 02/01/25 1328 Past Medical History: Medical History[1] LABS: CBC: Recent Labs 01/30/25 0638 01/31/25 0455 WBC 6.7 5.8 RBC 3.60* 3.25* HGB 11.6* 10.4* HCT 36.1 33.1* MCV 100.3* 101.8* RDW 15.8* 15.8* PLT 192 195 BMP: Recent Labs 01/30/25 0829 01/31/25 0455 NA 143 149* K 3.6 3.8 CL 107 111* CO2 26 27 BUN 21 17 CREATININE 1.00 1.08 GLUCOSE 208* 114 CALCIUM 8.0* 8.1* ANIONGAP 10 11 LIVER PROFILE: No results for input(s): "AST", "ALT", "BILITOT", "ALKPHOS", "PROT" in the last 72 hours. No lab exists for component: LABALBU PT/INR: No results for input(s): "PROTIME", "INR" in the last 72 hours. CARDIAC ENZYMES: No results for input(s): "TROPONINI" in the last 72 hours. Procalcitonin: No results found for: PROCAL COVID-19 PCR: No results for input(s): "COVID19" in the last 72 hours. Objective: Vitals: BP 153/75 (BP Location: Right arm, Patient Position: Lying) Pulse 80 Temp 36.4 C (97.6 F) (Temporal) Resp 18 Ht 5' 5" (1.651 m) SpO2 95% BMI 59.74 kg/m Pulse Ox: SpO2 Av % Min: 95 % Max: 95 % Supplemental O2: General appearance: No apparent distress, appears stated age and cooperative with exam HEENT: Normal cephalic, atraumatic without obvious deformity. Pupils equal, round, and reactive to light. Extra ocular muscles intact. Conjunctivae/corneas clear. Neck: Supple, with full range of motion. No jugular venous distention. Trachea midline. No lymphadenopathy. Respiratory: Normal respiratory effort. Clear to auscultation, bilaterally without Rales/Wheezes/Rhonchi. Cardiovascular: Regular rate and rhythm with normal S1/S2 without murmurs, rubs or gallops. Abdomen: Soft, non-tender, non-distended with normal bowel sounds. No rebound or guarding. Musculoskeletal: No clubbing, cyanosis or edema bilaterally. Full range of motion without deformity, +2 peripheral pulses in all extremities. Skin: Skin color, texture, turgor normal. No rashes or lesions. Neurologic: Neurovascularly intact without any focal sensory/motor deficits. Cranial nerves: II-XII intact, grossly non-focal. Medications: Continuous Meds[2] Scheduled Meds[3] Assessment Acute metabolic encephalopathy. Delirium with agitation anxiety episodes. Urinary tract infection. Mild hyponatremia. Insulin-dependent diabetes mellitus type 2 with hyperglycemia. History of: Congestive heart failure with preserved ejection fraction of 63% from 07/2023. Atrial fibrillation on Eliquis. Dementia-on Aricept. Insulin-dependent diabetes mellitus Plan: Patient is still having some on and off confusion, on and off agitation-started on as needed Seroquel. Palliative consult placed to discuss goals of care Continue antibiotics with Zosyn, cultures are growing Klebsiella and E. coli, sensitivities are pending Discontinued IV fluids As needed pain medications Blood sugars are well-controlled with the current regimen. Follow-up CBC BMP ordered PT OT evaluation DVT prophylaxis: On Eliquis. Disposition: Urine cultures are growing Klebsiella and E. coli-sensitivities are pending Pending transition to oral antibiotics Possible discharge in 2 days. 02/01-tried to call patient's family to update on patient current condition There is no answer. -am labs, replace lytes prn -increase activity -DVT prophylaxis: [] Lovenox [] Heparin [] SCDs [x] Encourage ambulation [] Already on Anticoagulation Advance Directive: Full Code Discharge planning: TBD Godwin Goetz MD Division of Hospitalist Medicine Inpatient Medical Services/[facility] [place] PAGER: [phone] [1] Past Medical History: Diagnosis Date A-fib (HCC) Anemia Diabetes (HCC) Lymphedema Obesity [2] sodium chloride, 75 mL/hr, Last Rate: 75 mL/hr (02/01/25 0020) [3] acetaminophen, 325 mg, Oral, TID apixaban, 5 mg, Oral, BID baclofen, 5 mg, Oral, TID bumetanide, 1 mg, Oral, BID donepezil, 10 mg, Oral, Nightly gabapentin, 300 mg, Oral, TID influenza, 0.5 mL, IntraMUSCular, Prior to discharge insulin glargine, 30 Units, SubCUTAneous, Nightly insulin lispro, 0-12 Units, SubCUTAneous, TID WC And insulin lispro, 0-12 Units, SubCUTAneous, Nightly miconazole, , Topical, BID piperacillin-tazobactam, 4,500 mg, IntraVENous, q6h senna-docusate sodium, 2 tablet, Oral, Nightly Hospitalist Progress Note 01/31/[id number]: Please page me ([phone]) for patient care issues. [phone]: Please page [facility] night Hospitalist for any issues. Subjective: Admit Date: 01/29/2025 PCP: Paige Rivera, Room#: [id number]/[id number] A Interval History: Patient is still having some confusion episodes but no agitation or anxiety noticed. As per nursing patient has been refusing medications No other significant overnight issues Adult diet Regular; 5 carb choices (75 gm/meal) @[id number]@ 24HR INTAKE/OUTPUT: Intake/Output Summary (Last 24 hours) at 01/31/2025 1252 Last data filed at 01/30/20252030 Gross per 24 hour Intake -- Output 200 ml Net -200 ml Past Medical History: Medical History[1] LABS: CBC: Recent Labs 01/29/25 1146 01/30/25 0638 01/31/25 0455 WBC 6.7 6.7 5.8 RBC 3.50* 3.60* 3.25* HGB 11.3* 11.6* 10.4* HCT 35.0 36.1 33.1* MCV 100.0* 100.3* 101.8* RDW 15.5* 15.8* 15.8* PLT 207 192 195 BMP: Recent Labs 01/29/25 1146 01/30/25 0829 01/31/25 0455 NA 147* 143 149* K 3.6 3.6 3.8 CL 106 107 111* CO2 31 26 27 BUN 28* 21 17 CREATININE 1.04 1.00 1.08 GLUCOSE 118* 208* 114 CALCIUM 8.8 8.0* 8.1* ANIONGAP 10 10 11 LIVER PROFILE: Recent Labs 01/29/25 1146 AST 19 ALT <6 BILITOT 0.5 ALKPHOS 91 PROT 6.6 PT/INR: No results for input(s): "PROTIME", "INR" in the last 72 hours. CARDIAC ENZYMES: No results for input(s): "TROPONINI" in the last 72 hours. Procalcitonin: No results found for: PROCAL COVID-19 PCR: No results for input(s): "COVID19" in the last 72 hours. Objective: Vitals: BP 141/96 (BP Location: Right arm, Patient Position: Lying) Pulse 92 Temp 36.1 C (97 F) (Temporal) Resp 18 Ht 5' 5" (1.651 m) SpO2 91% BMI 59.74 kg/m Pulse Ox: SpO2 Av.5 % Min: 91 % Max: 94 % Supplemental O2: General appearance: No apparent distress, appears stated age and cooperative with exam HEENT: Normal cephalic, atraumatic without obvious deformity. Pupils equal, round, and reactive to light. Extra ocular muscles intact. Conjunctivae/corneas clear. Neck: Supple, with full range of motion. No jugular venous distention. Trachea midline. No lymphadenopathy. Respiratory: Normal respiratory effort. Clear to auscultation, bilaterally without Rales/Wheezes/Rhonchi. Cardiovascular: Regular rate and rhythm with normal S1/S2 without murmurs, rubs or gallops. Abdomen: Soft, non-tender, non-distended with normal bowel sounds. No rebound or guarding. Musculoskeletal: No clubbing, cyanosis or edema bilaterally. Full range of motion without deformity, +2 peripheral pulses in all extremities. Skin: Skin color, texture, turgor normal. No rashes or lesions. Neurologic: Neurovascularly intact without any focal sensory/motor deficits. Cranial nerves: II-XII intact, grossly non-focal. Medications: Continuous Meds[2] Scheduled Meds[3] Assessment Acute metabolic encephalopathy. Delirium with agitation anxiety episodes. Urinary tract infection. Mild hyponatremia. Insulin-dependent diabetes mellitus type 2 with hyperglycemia. History of: Congestive heart failure with preserved ejection fraction of 63% from 07/2023. Atrial fibrillation on Eliquis. Dementia-on Aricept. Insulin-dependent diabetes mellitus Plan: Patient is still having some on and off confusion agitation anxiety improved. Continue antibiotics with Zosyn, cultures are growing Klebsiella and E. coli, sensitivities are pending Continue with gentle hydration. As needed pain medications Blood sugars are well-controlled with the current regimen. Follow-up CBC BMP ordered PT OT evaluation DVT prophylaxis: On Eliquis. Disposition: Urine cultures are growing Klebsiella and E. coli-sensitivities are pending Pending transition to oral antibiotics Possible discharge in 2 days -am labs, replace lytes prn -increase activity -DVT prophylaxis: [] Lovenox [] Heparin [] SCDs [x] Encourage ambulation [] Already on Anticoagulation Advance Directive: Full Code Discharge planning: TBD Godwin Goetz MD Division of Hospitalist Medicine Inpatient Medical Services/[facility] [place] PAGER: [phone] [1] Past Medical History: Diagnosis Date A-fib (HCC) Anemia Diabetes (HCC) Lymphedema Obesity [2] sodium chloride, 75 mL/hr, Last Rate: 75 mL/hr (01/31/25 1135) [3] acetaminophen, 325 mg, Oral, TID apixaban, 5 mg, Oral, BID baclofen, 5 mg, Oral, TID bumetanide, 1 mg, Oral, BID donepezil, 10 mg, Oral, Nightly gabapentin, 300 mg, Oral, TID influenza, 0.5 mL, IntraMUSCular, Prior to discharge insulin glargine, 30 Units, SubCUTAneous, Nightly insulin lispro, 0-12 Units, SubCUTAneous, TID WC And insulin lispro, 0-12 Units, SubCUTAneous, Nightly miconazole, , Topical, BID piperacillin-tazobactam, 4,500 mg, IntraVENous, q6h senna-docusate sodium, 2 tablet, Oral, Nightly Hospitalist Progress Note 01/30/2025 [phone]: Please page me ([phone]) for patient care issues. [phone]: Please page [facility] night Hospitalist for any issues. Subjective: Admit Date: 01/29/2025 PCP: Paige Rivera DO Room#: G1-809/H0-801 A Interval History: Patient is lying on the bed, answering some of her questions appropriately but still having confusion no signs of agitation or anxiety noticed. No other significant overnight issues. Adult diet Regular; 5 carb choices (75 gm/meal) @[id number]@ 24HR INTAKE/OUTPUT: No intake or output data in the 24 hours ending 01/30/25 4569 Past Medical History: Medical History[1] LABS: CBC: Recent Labs 01/29/25 1146 01/30/25 0638 WBC 6.7 6.7 RBC 3.50* 3.60* HGB 11.3* 11.6* HCT 35.0 36.1 MCV 100.0* 100.3* RDW 15.5* 15.8* PLT 207 192 BMP: Recent Labs 01/29/25 1146 01/30/25 0829 NA 147* 143 K 3.6 3.6 CL 106 107 CO2 31 26 BUN 28* 21 CREATININE 1.04 1.00 GLUCOSE 118* 208* CALCIUM 8.8 8.0* ANIONGAP 10 10 LIVER PROFILE: Recent Labs 01/29/25 1146 AST 19 ALT <6 BILITOT 0.5 ALKPHOS 91 PROT 6.6 PT/INR: No results for input(s): "PROTIME", "INR" in the last 72 hours. CARDIAC ENZYMES: No results for input(s): "TROPONINI" in the last 72 hours. Procalcitonin: No results found for: PROCAL COVID-19 PCR: No results for input(s): "COVID19" in the last 72 hours. Objective: Vitals: BP 146/59 (BP Location: Left arm, Patient Position: Lying) Pulse 81 Temp 36.2 C (97.1 F) (Temporal) Resp 16 Ht 5' 5" (1.651 m) SpO2 94% BMI 59.74 kg/m Pulse Ox: SpO2 Av % Min: 94 % Max: 98 % Supplemental O2: General appearance: No apparent distress, appears stated age and cooperative with exam HEENT: Normal cephalic, atraumatic without obvious deformity. Pupils equal, round, and reactive to light. Extra ocular muscles intact. Conjunctivae/corneas clear. Neck: Supple, with full range of motion. No jugular venous distention. Trachea midline. No lymphadenopathy. Respiratory: Normal respiratory effort. Clear to auscultation, bilaterally without Rales/Wheezes/Rhonchi. Cardiovascular: Regular rate and rhythm with normal S1/S2 without murmurs, rubs or gallops. Abdomen: Soft, non-tender, non-distended with normal bowel sounds. No rebound or guarding. Musculoskeletal: No clubbing, cyanosis or edema bilaterally. Full range of motion without deformity, +2 peripheral pulses in all extremities. Skin: Skin color, texture, turgor normal. No rashes or lesions. Neurologic: Neurovascularly intact without any focal sensory/motor deficits. Cranial nerves: II-XII intact, grossly non-focal. Medications: Continuous Meds[2] Scheduled Meds[3] Assessment Acute metabolic encephalopathy. Delirium with agitation anxiety episodes. Urinary tract infection. Mild hyponatremia. Insulin-dependent diabetes mellitus type 2 with hyperglycemia. History of: Congestive heart failure with preserved ejection fraction of 63% from 07/2023. Atrial fibrillation on Eliquis. Dementia-on Aricept. Insulin-dependent diabetes mellitus Plan: Patient is still having some on and off confusion agitation anxiety improved. Continue antibiotics with Zosyn, cultures are pending. Continue with gentle hydration. As needed pain medications Blood sugars are well-controlled with the current regimen. Follow-up CBC BMP ordered PT OT evaluation DVT prophylaxis: On Eliquis. Disposition: Pending cultures Pending transition to oral antibiotics Possible discharge in 2 days -am labs, replace lytes prn -increase activity -DVT prophylaxis: [] Lovenox [] Heparin [] SCDs [x] Encourage ambulation [] Already on Anticoagulation Advance Directive: Full Code Discharge planning: TBD Godwin Goetz MD Division of Hospitalist Medicine Inpatient Medical Services/[facility] [place] PAGER: [phone] [1] Past Medical History: Diagnosis Date A-fib (HCC) Anemia Diabetes (HCC) Lymphedema Obesity [2] sodium chloride, 75 mL/hr, Last Rate: 75 mL/hr (01/30/25 0823) [3] acetaminophen, 325 mg, Oral, TID apixaban, 5 mg, Oral, BID baclofen, 5 mg, Oral, TID bumetanide, 1 mg, Oral, BID donepezil, 10 mg, Oral, Nightly gabapentin, 300 mg, Oral, TID influenza, 0.5 mL, IntraMUSCular, Prior to discharge insulin glargine, 30 Units, SubCUTAneous, Nightly insulin lispro, 0-12 Units, SubCUTAneous, TID WC And insulin lispro, 0-12 Units, SubCUTAneous, Nightly miconazole, , Topical, BID piperacillin-tazobactam, 4,500 mg, IntraVENous, q6h senna-docusate sodium, 2 tablet, Oral, Nightly Nutrition Assessment Type and Reason for Visit: Initial, Positive Nutrition Screen Nutrition Recommendations/Plan: Continue diet as ordered -if swallowing difficulty noted recommend consult Speech Therapy Please record meal intakes in RN Flowsheets to help assess adequacy of nutrition Weigh patient RD to monitor labs, weight, skin status, PO intake -follow up weekly Malnutrition Assessment: Malnutrition Status: At risk for malnutrition (Comment) (age, altered mental status) Context: Acute Illness Findings of the 6 clinical characteristics of malnutrition: Energy Intake: Mild decrease in energy intake (Comment) (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 female admits with altered mental status from [facility]. UTI. pmhx T2DM, HTN, HLD, dementia, anemia, lymphedema, CHF, CKD. Pt observed erika breakfast meal. Pt reports good appetite -confusion noted. 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 unable to obtain bed scale wt Estimated Daily Nutrient Needs: Energy Requirements Based On: Kcal/kg Weight Used for Energy Requirements: [place] Weight for Energy Calculation (kg): 57 kg Total Energy Requirements (kcals/day): 0035-5094 (25-30) Weight Used for Protein Requirements: [place] Weight in Kg Used for Protein Requirements: 57 kg Estimated Total Protein (g/day): 63-74 (1.1-1.3) Estimated Daily Total Fluid (ml/day): per Nutrition Related Findings: +1 generalized, +2 BLE edema, bm 01/29. bgluc 208, 221, ca 8.0, alb 3.0. bumex, insulin, abx, senokot Wound Type: None, Wound Consult Pending 10/18/24 (!) 163 kg (359 lb) 11/24/23 (!) 155 kg (342 lb 9.6 oz) 09/27/23 (!) 159 kg (350 lb) 09/25/23 (!) 159 kg (350 lb) 07/31/23 (!) 159 kg (350 lb) Current Nutrition Therapies: Adult diet Regular; 5 carb choices (75 gm/meal) Current Oral Intake Average Meal Intake: Unable to assess (pt ate 100% breakfast tray -small meal noted) Average Supplements Intake: None Ordered Anthropometric Measures: Height: 165.1 cm (5' 5") Current Body Weight: (n/a) Admission Body Weight: 163 kg (359 lb) (10/18/24) Usual Body Weight: 137 kg (303 lb) (?wt noted on transfer records/ paper chart) [place] Body Weight (lbs) (Calculated): 125 lbs [place] Body Weight (Kg) (Calculated): 57 kg Weight Adjustment For: No Adjustment BMI Categories: Obese Class 3 (BMI 40.0 or greater) Nutrition Diagnosis: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 presented to ED on 01/29 for altered mental status secondary to UTI, she was admitted and started on IV antibiotics. Throughout admission she would refuse labs on and off. Palliaitve care was consulted and she was switched to DNR-CCA, PHYSICIAN SIGNATURE: documented in this encounter [facility] 01-31-2025 Nurse Note Patient refusing all medications, refusing to have blood glucose checked, and refusing to be turned. [facility] 01-31-2025 Progress note Formatting of t his note might be different from the original. Care Management Progress Note Short Medical why still here: Remains on 4S for encephalopathy with confusion and agitation/anxiety. Confusion remains, agitation/anxiety improved. Pending transition to oral antibiotics. Planned Discharge Disposition: Residential/Residential Care ([facility]) Barriers/Today we still Wait: Clinical stability, Administering IV medications Length of Stay (Days): 2 GMLOS: No GMLOS Documented CM tasked to follow patient through the weekend to assist with discharge needs. Chart reviewed. Expected Discharge, Rapid Rounding, and Discharge Milestones / Delays updated as appropriate. CM portion of JENN complete. Tasked to follow for possible weekend DC. Checked [facility]Port - confirmed patient is LTC at [facility] and does not need auth to return. Messaged attending to notify patient can return at any time. CM will follow for possible DC orders. T [facility] 01-30-2025 Nurse Note Patient refusing all meds at present. Patient refusing to allow staff to turn patient. Patient screaming to get out of her room. Patient incontinent of urine. T [facility] 01-30-2025 Progress note Formatting of t his note might be different from the original. Care Managment Initial Assessment Date: 01/30/2025 Patient Name: Saalzar Coyle : 1950 Patient Information Source of Information: Patient Registered Nurse Maternity Name/Contact Information: Deidra Forbes Daughter [phone] [email or web address] Cognition/Language: Impaired Permission given to speak with patient career services representative/caregiver as indicated: Confirmation of Payer with patient/family: Yes Payer Name: [employer] Medicare Ad[employer]atage Primary and Medicaid secondary : No Confirmation of Primary Care Physician: Confirmed PCP Name: Dr. J Vogt Seen in last 2 years?: Yes Primary Caregiver: Other (Comment) If assistance needed, confirmed caregiver ready, willing and able to care for patient at discharge: Confirmed with: Living Arrangements Current Residence: Number of Floors Number of Entry Steps: Bed/Bath Levels: Facility: Residential/Residental Care Facility Name: [facility] Plan to Return: Yes Lives with: Other (Comment) Support Systems: Children Activities of Daily Living Ambulation: Bathing/Dressing: Elimination/Continence/Toileting: Feeding: Who Assists with Activities of Daily Living: Instrumental Activities of Daily Living Prescription Coverage: Pharmacy Used: Medication Management: Transportation/Shopping: Transportation Mode: Needs Assistance with Transportation at Discharge: Meal Preparation: Laundry/Cleaning: Finances/Bill Paying: Communication: Types of Care Services/Equipment Utilized Care Services: Dialysis Type: Durable Medical Equipment: Patient's Goal/Discharge Plan Patient expects to be discharged to: [facility] Discharge Planning Actions: Continue to follow Patient's Choice Rights and [employer] and Collaborative Relationships Disclosed as Indicated for Post-Acute Care: Interdisciplinary Team Engagement: Social Work Referral for: Additional Information: Chart reviewed. Patient admitted to [address] [place] [address] for treatment of UTI and Acute metabolic encephalopathy. Dementia and anxiety episodes. CHF. Wound care following. On IV Zosyn. Regular diet. Placed second call to nabor PIÑA today. Confirms patient insurance and has prescription coverage. +PCP. Agrees for patient to return to [facility] on discharge, when medically ready. 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 Weekend team tasked to follow. Melchor Gutierrez RN [facility] 01-30-2025 Progress note Formatting of t his note might be different from the original. Placed call to nabor Forbes today. No contact information listed on voice mail. Left this Call Center Coordinatorservice technician copier number to discuss disposition planning. Awaiting call back to confirm patient can return. Noted in H+P; patient is from [facility]. Facility responded patient is [facility] and a bed hold. No authorization needed to return. Weekend DP tasked to follow. [facility] 01-30-2025 Note Referral placed to r eturn back to [facility] via [facility]port per TCC request. Await review and response regarding ability to accept. TCC notified. [facility] 01-30-2025 Progress note Formatting of t his note might be different from the original. Referral placed to return back to [facility] via [facility]port per TCC request. Await review and response regarding ability to accept. TCC notified. [facility] 01-30-2025 Nurse Note Wound Care consulted for Pressure Injury Prevention. Pt's Alex score= 12 on 01/30 Pt's pressure points assessed. Pt turned with max assist of 2 (this RN and car shunter) for posterior assessment. Pt's Heels, Buttocks/coccyx, Back, Elbows, Occiput and ears all intact. [place] and blanchable tissues noted to bilateral heels and left lateral foot. Scabbed area noted to plantar aspect of right foot. Pt states this area has been present for "a really long time." See photo in media tab. Female external catheter in place. Skin intact to medial thighs and labia. Linear blanchable erythema noted to left medial thigh and to bilateral labia. Pt unable to lift/move right leg. Pt able to slightly move left leg but unable to adequately bend knee or abduct hip to allow for pressure relief of purewick device. Purewick removed at this time. Pt incontinent of large amount of urine. Pads changed, incontinence care provided. Instructed pt on pressure injury prevention and importance of turning/postioning every 2hrs while in bed and every 15 min while sitting in chair. Verbalized understanding but recommend frequent reinforcement d/t pt confusion. Prevention Measures in place, including: [place] sheet with pillows/wedges, Foam heel protectors (obtained and applied), Heels elevated off bed on pillows, HeelMedix boots (ordered for pt), Zinc/Moisture Barrier ointment (obtained), Waffle chair cushion (obtain if out of bed to chair). Skin Care precaution order set in place. Dietitian consult in place. PT consult completed, see note from 01/30. D/W nursing staff. Will continue to follow pt. Please secure chat for any questions or concerns. Thi Buenrostro RN T [facility] 01-29-2025 Nurse Note Pt A&0 to self only. Pts o2 is 89-90%. When attempting to apply o2. Pt starts yelling "no" and moving her head side to side. Attempted to educate pt but pt states "no means no." When rolling pt to get pt clean, pt is screaming the whole time stating her legs hurt. Reassured pt that we needed to get her clean. Pts med list was updated. Message sent to Dr. Goetz. T [facility] 01-29-2025 History and physical note Attending History and Physical Admit Date: 01/29/2025 PCP: Paige Rivera DO CHIEF COMPLAINT: Altered mental status Reason for Admission: Acute metabolic encephalopathy Urinary tract infection History Obtained From: Reviewing previous hospital chart, talking to family and ER physician HISTORY OF PRESENT ILLNESS: Salazar is a 74 y.o. female with significant past medical history of insulin-dependent admitted mellitus type II, hypertension, hyperlipidemia, dementia. Brought to the room due to change in mental status since yesterday, as per family at baseline usually patient is alert and oriented x 3, denies any chest pain shortness of breath or palpitation, denies any abdominal pain nausea or vomitings. In the emergency room patient is still confused unable to answer questions appropriately. Tachycardic, urinalysis positive for infection, started on IV antibiotics Admitting patient for further management. Past Medical History: Medical History[1] Past Surgical History: Surgical History[2] Social History: Social History Socioeconomic History Marital status: Spouse name: Not on file Number of children: Not on file Years of education: Not on file Highest education level: Not on file Occupational History Not on file Tobacco Use Smoking status: Never Smokeless tobacco: Never Vaping Use Vaping status: Never Used Substance and Sexual Activity Alcohol use: Never Drug use: Never Sexual activity: Not Currently Other Topics Concern Not on file Social History Narrative Not on file Social Drivers of Health Financial Resource Strain: Not on file Food Insecurity: Not on file Transportation Needs: Not on file Physical Activity: Not on file Stress: Not on file Social Connections: Not on file Intimate Partner Violence: Not At Risk (01/08/2023) Humiliation, Afraid, Rape, and Kick questionnaire Fear of Current or Ex-Partner: No Emotionally Abused: No Physically Abused: No Sexually Abused: No Housing Stability: Not on file Family History: Family History[3] Medications Prior to Admission: Current Medications[4] Allergies: Ertapenem REVIEW OF SYSTEMS: Constitutional: Negative for fever, chills, activity change and unexpected weight change. HEENT: Negative for congestion, postnasal drip and sneezing. Eyes: Negative for itching and visual disturbance. Respiratory: Negative for apnea, cough, choking, chest tightness, shortness of breath, wheezing and stridor. Cardiovascular: Negative for chest pain. Gastrointestinal: Negative for nausea, vomiting, abdominal pain, diarrhea and blood in stool. Genitourinary: Negative for dysuria, frequency and flank pain. Musculoskeletal: Negative for myalgias and joint swelling. Skin: Negative for rash. Neurological: Negative for dizziness, tremors, seizures, syncope, facial asymmetry, speech difficulty, weakness, numbness and headaches. Hematological: Negative for adenopathy. Psychiatric/Behavioral: Negative for suicidal ideas, behavioral problems, self-injury and dysphoric mood. Vitals: BP (!) 131/55 Pulse 94 Temp 36.8 C (98.2 F) (Oral) Resp 18 SpO2 97% BMI Classification: Obese (BMI 30.0-39.9) Pulse Ox: SpO2 Av % Min: 97 % Max: 97 % Supplemental O2: PHYSICAL EXAM: General appearance: Confused HEENT: Normal cephalic, atraumatic without obvious deformity. Pupils equal, round, and reactive to light. Extra ocular muscles intact. Conjunctivae/corneas clear. Neck: Supple, with full range of motion. No jugular venous distention. Trachea midline. No lymphadenopathy. Respiratory: Normal respiratory effort. Clear to auscultation, bilaterally without Rales/Wheezes/Rhonchi. Cardiovascular: Regular rate and rhythm with normal S1/S2 without murmurs, rubs or gallops. Abdomen: Soft, non-tender, non-distended with normal bowel sounds. No rebound or guarding. Musculoskeletal: No clubbing, cyanosis or edema bilaterally. Full range of motion without deformity, +2 peripheral pulses in all extremities. Skin: Skin color, texture, turgor normal. No rashes or lesions. Neurologic: No focal deficits, confused Psychiatric: Alert and oriented, thought content appropriate, normal insight. DATA: CBC: Recent Labs 01/29/25 1146 WBC 6.7 RBC 3.50* HGB 11.3* HCT 35.0 MCV 100.0* RDW 15.5* PLT 207 BMP: Recent Labs 01/29/25 1146 NA 147* K 3.6 CL 106 CO2 31 BUN 28* CREATININE 1.04 GLUCOSE 118* CALCIUM 8.8 ANIONGAP 10 LIVER PROFILE: Recent Labs 01/29/25 1146 AST 19 ALT <6 BILITOT 0.5 ALKPHOS 91 PROT 6.6 PT/INR: No results for input(s): "PROTIME", "INR" in the last 72 hours. CARDIAC ENZYMES: No results for input(s): "TROPONINI" in the last 72 hours. Procalcitonin: No results found for: PROCAL Urine Culture: Results for orders placed or performed during the hospital encounter of 10/09/24 Urine culture Collection Time: 10/10/24 3:37 AM Specimen: Urine, Clean Catch Result Value Ref Range Urine Culture No growth (<1,000 CFU/mL) COVID-19 PCR: No results for input(s): "COVID19" in the last 72 hours. I reviewed: [x] laboratory results [x] radiographic results At the time of today's encounter. Pt was advised of the results. IMPRESSION: Acute metabolic encephalopathy. Delirium with agitation anxiety episodes. Urinary tract infection. Mild hyponatremia. Insulin-dependent diabetes mellitus type 2 with hyperglycemia. History of: Congestive heart failure with preserved ejection fraction of 63% from 07/2023. Atrial fibrillation on Eliquis. Dementia-on Aricept. Insulin-dependent diabetes mellitus Plan: Patient was still having confusion with agitation anxiety episodes Will consider starting patient on Seroquel nightly if agitation gets worse. Continue IV antibiotics with Zosyn, follow-up on urine cultures and blood cultures. Continue with gentle hydration. As needed pain medications. Blood sugars fairly well-controlled, continue Lantus 30 units nightly, sliding scale. Home medications reviewed and resumed appropriately Follow-up CBC BMP ordered PT OT evaluation. DVT prophylaxis: Patient is on Eliquis. Disposition: Pending cultures, pending transition to oral antibiotics Pending PT OT. Possible discharge 2 to 3 days. -PT/OT eval/increase activity -am labs, replace lytes prn -vitals per routine -home meds as ordered -DVT prophylaxis: [] Lovenox [] Heparin [] SCDs [x] Encourage ambulation [] Already on Anticoagulation -see below for additional orders, further recommendations to follow Orders Placed This Encounter Procedures Blood culture Site #1 - Suspected Infection Blood culture Site #2 - Suspected Infection Urine culture CT head wo IV contrast XR chest 1 view CBC auto differential Comprehensive metabolic panel Complete Urinalysis with reflex to Culture Lactic acid with reflex CBC auto differential Basic Metabolic Panel w/ Mg Reflex Hemoglobin A1c Adult diet Regular; 5 carb choices (75 gm/meal) Vital Signs Notify patient's primary care provider of admission Activity Up With Assistance OK to remove per nurse driven telemetry protocol- Begin review at 48 hours Telemetry monitoring for Arrhythmia Management Notify physician per STANDARD parameters Notify Provider HYPOGLYCEMIA TREATMENT: blood glucose less than 50 mg/dL and patient ALERT and TOLERATING PO HYPOGLYCEMIA TREATMENT: blood glucose less than 70 mg/dL and patient NOT ALERT or NPO Full code OT eval and treat (ADL's and functional assessment) PT eval and treat (skilled functional mobility) Initiate Oxygen Therapy Protocol ECG 12 lead Admit to inpatient Code status: Full Code Please forward a copy of this H&P to the patient's PCP. Thank you. Electronically signed by @[email or web address]@ on @[email or web address]@ at @NOWNR@ [1] Past Medical History: Diagnosis Date A-fib (HCC) Anemia Diabetes (HCC) Lymphedema Obesity [2] Past Surgical History: Procedure Laterality Date CYSTOSCOPY W/ LASER LITHOTRIPSY Left Cysto, left Ureteroscopic laser lithotripsy, left ureteral stent removal.Mili URETEROSCOPY Left 09/27/2023 Cytoscopy, left ureteral stent removal , left flexible ureteroscopic laser lithotripsy. Mili [3] No family history on file. [4] Current Facility-Administered Medications: acetaminophen (Tylenol) tablet 650 mg, 650 mg, Oral, q6h PRN OR acetaminophen (Tylenol) suppository 650 mg, 650 mg, Rectal, q6h PRN, Godwin Goetz MD acetaminophen (Tylenol) tablet 325 mg, 325 mg, Oral, TID, Godwin Goetz MD apixaban (Eliquis) tablet 5 mg, 5 mg, Oral, BID, Godwin Goetz MD baclofen (Lioresal) tablet 5 mg, 5 mg, Oral, TID, Godwin Goetz MD bumetanide (Bumex) tablet 1 mg, 1 mg, Oral, BID, Godwin Goetz MD dextrose 5 % infusion, 100 mL/hr, IntraVENous, PRN, Godwin Goetz MD dextrose 50 % solution 12.5 g, 12.5 g, IntraVENous, PRN, Godwin Goetz MD donepezil (Aricept) tablet 10 mg, 10 mg, Oral, Nightly, Godwin Goetz MD gabapentin (Neurontin) capsule 300 mg, 300 mg, Oral, TID, Godwin Goetz MD glucagon (human recombinant) injection 1 mg, 1 mg, IntraMUSCular, PRN, Godwin Goetz MD glucose oral gel 15 g, 15 g, Oral, PRN, Godwin Goetz MD influenza vaccine A&B surf ant adjuvanted (Fluad) HIGH-DOSE injection 0.5 mL, 0.5 mL, IntraMUSCular, Once, Godwin Goetz MD insulin glargine (Lantus) injection 30 Units, 30 Units, SubCUTAneous, Nightly, Godwin Goetz MD Insulin Lispro (Humalog) injection 0-12 Units, 0-12 Units, SubCUTAneous, TID WC AND Insulin Lispro (Humalog) injection 0-12 Units, 0-12 Units, SubCUTAneous, Nightly, Godwin Goetz MD miconazole (Micotin) 2 % powder, , Topical, BID, Godwin Goetz MD ondansetron ODT (Zofran-ODT) disintegrating tablet 4 mg, 4 mg, Oral, q8h PRN OR ondansetron (Zofran) injection 4 mg, 4 mg, IntraVENous, q6h PRN, Godwin Goetz MD piperacillin-tazobactam (Zosyn) 3,375 mg in sodium chloride 0.9 % 50 mL IVPB Mini-Bag Plus, 3,375 mg, IntraVENous, q8h, Godwin Goetz MD polyethylene glycol (PEG) 3350 (Miralax) packet 17 g, 17 g, Oral, Daily PRN, Godwin Goetz MD senna-docusate (Helena-Colace) 8.6-50 MG per tablet 2 tablet, 2 tablet, Oral, Nightly, Godwin Goetz MD sodium chloride 0.9 % infusion, 75 mL/hr, IntraVENous, Continuous, Godwin Goetz MD Current Outpatient Medications: acetaminophen (Tylenol) 325 MG tablet, Take 325 mg by mouth 3 times daily., Disp: , Rfl: ammonium lactate (Lac-Hydrin) 12 % lotion, Apply topically as needed for dry skin., Disp: , Rfl: apixaban (Eliquis) 5 MG tablet, Take 5 mg by mouth 2 times daily., Disp: , Rfl: ascorbic acid (Vitamin C) 250 MG tablet, Take 250 mg by mouth daily., Disp: , Rfl: atorvastatin (Lipitor) 20 MG tablet, Take 20 mg by mouth daily., Disp: , Rfl: baclofen (Lioresal) 5 MG tablet, Take 1 tablet by mouth 3 times daily., Disp: , Rfl: bumetanide (Bumex) 1 MG tablet, Take 1 tablet (1 mg) by mouth in the morning and 1 tablet (1 mg) in the evening., Disp: 60 tablet, Rfl: 2 Calcium Carbonate-Vitamin D (Oyster Shell Calcium/D) 500-5 MG-MCG tablet, Take 1 tablet by mouth daily., Disp: , Rfl: Diclofenac Sodium (Voltaren) 1 % gel, Apply 4 g topically 2 times daily., Disp: 50 g, Rfl: 1 donepezil (Aricept) 10 MG tablet, Take 10 mg by mouth Nightly., Disp: , Rfl: gabapentin (Neurontin) 100 MG capsule, Take 3 capsules (300 mg) by mouth 3 times daily., Disp: 180 capsule, Rfl: 2 insulin glargine (Lantus) 100 UNIT/ML injection, Inject 30 Units under the skin Nightly., Disp: 9 mL, Rfl: 0 Insulin Lispro (Humalog) 100 UNIT/ML solution injection, Inject 5 Units under the skin in the morning and 5 Units at noon and 5 Units in the evening. Inject with meals., Disp: 10 mL, Rfl: 2 melatonin 3 MG tablet, Take 2 tablets (6 mg) by mouth Nightly., Disp: , Rfl: miconazole (Micotin) 2 % powder, Apply topically 2 times daily., Disp: , Rfl: miconazole (Micotin) 2 % powder, Apply topically as needed for itching., Disp: , Rfl: nystatin (Mycostatin) 694471 UNIT/GM powder, , Disp: , Rfl: senna-docusate (Helena-Colace) 8.6-50 MG tablet, Take 100 tablets by mouth Every 24 hours., Disp: , Rfl: [facility] 01-29-2025 Note [facility] 01-29-2025 History and physical note Attending History and Physical Admit Date: 01/29/2025 PCP: Paige Rivera DO CHIEF COMPLAINT: Altered mental status Reason for Admission: Acute metabolic encephalopathy Urinary tract infection History Obtained From: Reviewing previous hospital chart, talking to family and ER physician HISTORY OF PRESENT ILLNESS: Salazar is a 74 y.o. female with significant past medical history of insulin-dependent admitted mellitus type II, hypertension, hyperlipidemia, dementia. Brought to the room due to change in mental status since yesterday, as per family at baseline usually patient is alert and oriented x 3, denies any chest pain shortness of breath or palpitation, denies any abdominal pain nausea or vomitings. In the emergency room patient is still confused unable to answer questions appropriately. Tachycardic, urinalysis positive for infection, started on IV antibiotics Admitting patient for further management. Past Medical History: Medical History[1] Past Surgical History: Surgical History[2] Social History: Social History Socioeconomic History Marital status: Spouse name: Not on file Number of children: Not on file Years of education: Not on file Highest education level: Not on file Occupational History Not on file Tobacco Use Smoking status: Never Smokeless tobacco: Never Vaping Use Vaping status: Never Used Substance and Sexual Activity Alcohol use: Never Drug use: Never Sexual activity: Not Currently Other Topics Concern Not on file Social History Narrative Not on file Social Drivers of Health Financial Resource Strain: Not on file Food Insecurity: Not on file Transportation Needs: Not on file Physical Activity: Not on file Stress: Not on file Social Connections: Not on file Intimate Partner Violence: Not At Risk (01/08/2023) Humiliation, Afraid, Rape, and Kick questionnaire Fear of Current or Ex-Partner: No Emotionally Abused: No Physically Abused: No Sexually Abused: No Housing Stability: Not on file Family History: Family History[3] Medications Prior to Admission: Current Medications[4] Allergies: Ertapenem REVIEW OF SYSTEMS: Constitutional: Negative for fever, chills, activity change and unexpected weight change. HEENT: Negative for congestion, postnasal drip and sneezing. Eyes: Negative for itching and visual disturbance. Respiratory: Negative for apnea, cough, choking, chest tightness, shortness of breath, wheezing and stridor. Cardiovascular: Negative for chest pain. Gastrointestinal: Negative for nausea, vomiting, abdominal pain, diarrhea and blood in stool. Genitourinary: Negative for dysuria, frequency and flank pain. Musculoskeletal: Negative for myalgias and joint swelling. Skin: Negative for rash. Neurological: Negative for dizziness, tremors, seizures, syncope, facial asymmetry, speech difficulty, weakness, numbness and headaches. Hematological: Negative for adenopathy. Psychiatric/Behavioral: Negative for suicidal ideas, behavioral problems, self-injury and dysphoric mood. Vitals: BP (!) 131/55 Pulse 94 Temp 36.8 C (98.2 F) (Oral) Resp 18 SpO2 97% BMI Classification: Obese (BMI 30.0-39.9) Pulse Ox: SpO2 Av % Min: 97 % Max: 97 % Supplemental O2: PHYSICAL EXAM: General appearance: Confused HEENT: Normal cephalic, atraumatic without obvious deformity. Pupils equal, round, and reactive to light. Extra ocular muscles intact. Conjunctivae/corneas clear. Neck: Supple, with full range of motion. No jugular venous distention. Trachea midline. No lymphadenopathy. Respiratory: Normal respiratory effort. Clear to auscultation, bilaterally without Rales/Wheezes/Rhonchi. Cardiovascular: Regular rate and rhythm with normal S1/S2 without murmurs, rubs or gallops. Abdomen: Soft, non-tender, non-distended with normal bowel sounds. No rebound or guarding. Musculoskeletal: No clubbing, cyanosis or edema bilaterally. Full range of motion without deformity, +2 peripheral pulses in all extremities. Skin: Skin color, texture, turgor normal. No rashes or lesions. Neurologic: No focal deficits, confused Psychiatric: Alert and oriented, thought content appropriate, normal insight. DATA: CBC: Recent Labs 01/29/25 1146 WBC 6.7 RBC 3.50* HGB 11.3* HCT 35.0 MCV 100.0* RDW 15.5* PLT 207 BMP: Recent Labs 01/29/25 1146 NA 147* K 3.6 CL 106 CO2 31 BUN 28* CREATININE 1.04 GLUCOSE 118* CALCIUM 8.8 ANIONGAP 10 LIVER PROFILE: Recent Labs 01/29/25 1146 AST 19 ALT <6 BILITOT 0.5 ALKPHOS 91 PROT 6.6 PT/INR: No results for input(s): "PROTIME", "INR" in the last 72 hours. CARDIAC ENZYMES: No results for input(s): "TROPONINI" in the last 72 hours. Procalcitonin: No results found for: PROCAL Urine Culture: Results for orders placed or performed during the hospital encounter of 10/09/24 Urine culture Collection Time: 10/10/24 3:37 AM Specimen: Urine, Clean Catch Result Value Ref Range Urine Culture No growth (<1,000 CFU/mL) COVID-19 PCR: No results for input(s): "COVID19" in the last 72 hours. I reviewed: [x] laboratory results [x] radiographic results At the time of today's encounter. Pt was advised of the results. IMPRESSION: Acute metabolic encephalopathy. Delirium with agitation anxiety episodes. Urinary tract infection. Mild hyponatremia. Insulin-dependent diabetes mellitus type 2 with hyperglycemia. History of: Congestive heart failure with preserved ejection fraction of 63% from 07/2023. Atrial fibrillation on Eliquis. Dementia-on Aricept. Insulin-dependent diabetes mellitus Plan: Patient was still having confusion with agitation anxiety episodes Will consider starting patient on Seroquel nightly if agitation gets worse. Continue IV antibiotics with Zosyn, follow-up on urine cultures and blood cultures. Continue with gentle hydration. As needed pain medications. Blood sugars fairly well-controlled, continue Lantus 30 units nightly, sliding scale. Home medications reviewed and resumed appropriately Follow-up CBC BMP ordered PT OT evaluation. DVT prophylaxis: Patient is on Eliquis. Disposition: Pending cultures, pending transition to oral antibiotics Pending PT OT. Possible discharge 2 to 3 days. -PT/OT eval/increase activity -am labs, replace lytes prn -vitals per routine -home meds as ordered -DVT prophylaxis: [] Lovenox [] Heparin [] SCDs [x] Encourage ambulation [] Already on Anticoagulation -see below for additional orders, further recommendations to follow Orders Placed This Encounter Procedures Blood culture Site #1 - Suspected Infection Blood culture Site #2 - Suspected Infection Urine culture CT head wo IV contrast XR chest 1 view CBC auto differential Comprehensive metabolic panel Complete Urinalysis with reflex to Culture Lactic acid with reflex CBC auto differential Basic Metabolic Panel w/ Mg Reflex Hemoglobin A1c Adult diet Regular; 5 carb choices (75 gm/meal) Vital Signs Notify patient's primary care provider of admission Activity Up With Assistance OK to remove per nurse driven telemetry protocol- Begin review at 48 hours Telemetry monitoring for Arrhythmia Management Notify physician per STANDARD parameters Notify Provider HYPOGLYCEMIA TREATMENT: blood glucose less than 50 mg/dL and patient ALERT and TOLERATING PO HYPOGLYCEMIA TREATMENT: blood glucose less than 70 mg/dL and patient NOT ALERT or NPO Full code OT eval and treat (ADL's and functional assessment) PT eval and treat (skilled functional mobility) Initiate Oxygen Therapy Protocol ECG 12 lead Admit to inpatient Code status: Full Code Please forward a copy of this H&P to the patient's PCP. Thank you. Electronically signed by [email or web address]@ on @TDNR@ at @NOWNR@ [1] Past Medical History: Diagnosis Date A-fib (HCC) Anemia Diabetes (HCC) Lymphedema Obesity [2] Past Surgical History: Procedure Laterality Date CYSTOSCOPY W/ LASER LITHOTRIPSY Left Cysto, left Ureteroscopic laser lithotripsy, left ureteral stent removal.Mili URETEROSCOPY Left 09/27/2023 Cytoscopy, left ureteral stent removal , left flexible ureteroscopic laser lithotripsy. Mili [3] No family history on file. [4] Current Facility-Administered Medications: acetaminophen (Tylenol) tablet 650 mg, 650 mg, Oral, q6h PRN OR acetaminophen (Tylenol) suppository 650 mg, 650 mg, Rectal, q6h PRN, Godwin Goetz MD acetaminophen (Tylenol) tablet 325 mg, 325 mg, Oral, TID, Godwin Goetz MD apixaban (Eliquis) tablet 5 mg, 5 mg, Oral, BID, Godwin Goetz MD baclofen (Lioresal) tablet 5 mg, 5 mg, Oral, TID, Godwin Goetz MD bumetanide (Bumex) tablet 1 mg, 1 mg, Oral, BID, Godwin Goetz MD dextrose 5 % infusion, 100 mL/hr, IntraVENous, PRN, Godwin Goetz MD dextrose 50 % solution 12.5 g, 12.5 g, IntraVENous, PRN, Godwin Goetz MD donepezil (Aricept) tablet 10 mg, 10 mg, Oral, Nightly, Godwin Goetz MD gabapentin (Neurontin) capsule 300 mg, 300 mg, Oral, TID, Godwin Goetz MD glucagon (human recombinant) injection 1 mg, 1 mg, IntraMUSCular, PRN, Godwin Goetz MD glucose oral gel 15 g, 15 g, Oral, PRN, Godwin Goetz MD influenza vaccine A&B surf ant adjuvanted (Fluad) HIGH-DOSE injection 0.5 mL, 0.5 mL, IntraMUSCular, Once, Godwin Goetz MD insulin glargine (Lantus) injection 30 Units, 30 Units, SubCUTAneous, Nightly, Godwin Goetz MD Insulin Lispro (Humalog) injection 0-12 Units, 0-12 Units, SubCUTAneous, TID WC AND Insulin Lispro (Humalog) injection 0-12 Units, 0-12 Units, SubCUTAneous, Nightly, Godwin Goetz MD miconazole (Micotin) 2 % powder, , Topical, BID, Godwin Goetz MD ondansetron ODT (Zofran-ODT) disintegrating tablet 4 mg, 4 mg, Oral, q8h PRN OR ondansetron (Zofran) injection 4 mg, 4 mg, IntraVENous, q6h PRN, Godwin Goetz MD piperacillin-tazobactam (Zosyn) 3,375 mg in sodium chloride 0.9 % 50 mL IVPB Mini-Bag Plus, 3,375 mg, IntraVENous, q8h, Godwin Goetz MD polyethylene glycol (PEG) 3350 (Miralax) packet 17 g, 17 g, Oral, Daily PRN, Godwin Goetz MD senna-docusate (Helena-Colace) 8.6-50 MG per tablet 2 tablet, 2 tablet, Oral, Nightly, Godwin Goetz MD sodium chloride 0.9 % infusion, 75 mL/hr, IntraVENous, Continuous, Godwin Goetz MD Current Outpatient Medications: acetaminophen (Tylenol) 325 MG tablet, Take 325 mg by mouth 3 times daily., Disp: , Rfl: ammonium lactate (Lac-Hydrin) 12 % lotion, Apply topically as needed for dry skin., Disp: , Rfl: apixaban (Eliquis) 5 MG tablet, Take 5 mg by mouth 2 times daily., Disp: , Rfl: ascorbic acid (Vitamin C) 250 MG tablet, Take 250 mg by mouth daily., Disp: , Rfl: atorvastatin (Lipitor) 20 MG tablet, Take 20 mg by mouth daily., Disp: , Rfl: baclofen (Lioresal) 5 MG tablet, Take 1 tablet by mouth 3 times daily., Disp: , Rfl: bumetanide (Bumex) 1 MG tablet, Take 1 tablet (1 mg) by mouth in the morning and 1 tablet (1 mg) in the evening., Disp: 60 tablet, Rfl: 2 Calcium Carbonate-Vitamin D (Oyster Shell Calcium/D) 500-5 MG-MCG tablet, Take 1 tablet by mouth daily., Disp: , Rfl: Diclofenac Sodium (Voltaren) 1 % gel, Apply 4 g topically 2 times daily., Disp: 50 g, Rfl: 1 donepezil (Aricept) 10 MG tablet, Take 10 mg by mouth Nightly., Disp: , Rfl: gabapentin (Neurontin) 100 MG capsule, Take 3 capsules (300 mg) by mouth 3 times daily., Disp: 180 capsule, Rfl: 2 insulin glargine (Lantus) 100 UNIT/ML injection, Inject 30 Units under the skin Nightly., Disp: 9 mL, Rfl: 0 Insulin Lispro (Humalog) 100 UNIT/ML solution injection, Inject 5 Units under the skin in the morning and 5 Units at noon and 5 Units in the evening. Inject with meals., Disp: 10 mL, Rfl: 2 melatonin 3 MG tablet, Take 2 tablets (6 mg) by mouth Nightly., Disp: , Rfl: miconazole (Micotin) 2 % powder, Apply topically 2 times daily., Disp: , Rfl: miconazole (Micotin) 2 % powder, Apply topically as needed for itching., Disp: , Rfl: nystatin (Mycostatin) 216322 UNIT/GM powder, , Disp: , Rfl: senna-docusate (Helena-Colace) 8.6-50 MG tablet, Take 100 tablets by mouth Every 24 hours., Disp: , Rfl: documented in this encounter [facility] 01-29-2025 Emergency department Note MH TEACHER called to attempt IV access [facility] 01-29-2025 Emergency department Note MH TEACHER called to attempt IV access Emergency Department Encounter Pt Name: Salazar Coyle Birthdate 1950 Date of evaluation: 01/29/2025 Provider: Mario Portillo MD CHIEF COMPLAINT Chief Complaint Patient presents with Altered Mental Status Pt arrives via EMS from [facility] for AMS. Per report pt family was visiting yesterday and noted pt was not herself. Normally aox4. Staff noted HR in 120s this am and not speaking normally and moaning all morning. HISTORY OF PRESENT ILLNESS HPI Salazar Coyle is a 74 y.o. female with history that includes IDDM, recurrent UTI, morbid obesity, presenting to the emergency department for evaluation of status change. Patient was noted to not be herself according to family yesterday. She is normally alert and fully oriented. This morning her heart rate was noted to be in the 120s and she was not speaking normally and she was moaning and she was therefore sent to the emergency department. Upon arrival, patient is confused and doesn't seem to understand my questions. Nursing Notes were reviewed. Medical History[1] REVIEW OF SYSTEMS Several elements of the ROS reviewed and otherwise acutely negative except as in the HPI. PHYSICAL EXAM ED Triage Vitals Temp Heart Rate Resp BP 01/29/25 0947 01/29/25 0942 01/29/25 0942 01/29/25 0942 36.8 C (98.2 F) (!) 118 18 (!) 131/55 SpO2 Temp Source Heart Rate Source Patient Position 01/29/25 0942 01/29/25 0947 -- -- 97 % Oral BP Location FiO2 (%) -- -- Physical Exam Vitals and nursing note reviewed. Constitutional: General: She is not in acute distress. Appearance: She is well-developed. She is obese. She is ill-appearing. Comments: Patient is laying supine. She is awake. HENT: Head: Normocephalic and atraumatic. Mouth/Throat: Mouth: Mucous membranes are dry. Eyes: Conjunctiva/sclera: Conjunctivae normal. Cardiovascular: Rate and Rhythm: Normal rate and regular rhythm. Heart sounds: No murmur heard. Pulmonary: Effort: Pulmonary effort is normal. No respiratory distress. Breath sounds: Normal breath sounds. Abdominal: Palpations: Abdomen is soft. Tenderness: There is no abdominal tenderness. Musculoskeletal: General: No swelling. Cervical back: Neck supple. Skin: General: Skin is warm and dry. Neurological: Mental Status: She is alert. She is confused. Comments: GCS 13 with -1 speech and -1 motor Unable to cooperate with NIHSS evaluation. She is dysarthric but I appreciate no facial asymmetry. Psychiatric: Mood and Affect: Mood normal. EMERGENCY DEPARTMENT COURSE and DIFFERENTIAL DIAGNOSIS/MDM: Differential diagnoses include: Encephalopathy, CVA (regardless, would be outside the window for intervention given onset of symptoms yesterday), in for patient, abnormality, anemia. Sources of history: I reviewed the charge summary from 10/18/2024. She had been admitted for acute metabolic encephalopathy and severe sepsis, additionally had aspiration pneumonia, acute on chronic hypoxic hypercapnic respiratory failure, demand related NSTEMI, acute renal insufficiency. Diagnostic tests considered but not performed: CTA head/neck; low suspicion for CVA ED course: ED Course as of 01/30/25730 Celeste Jan 29, 2025 1133 UA is abnormal. Most recent urine culture that was abnormal was from 11/22/2023 growing E. coli and Providencia stuartii. Based on susceptibility patterns, Zosyn will be given to her today. [AK] 1133 I interpreted the chest x-ray as showing no focal consolidation or pulmonary edema. [AK] 1138 I interpreted the ECG as showing atrial fibrillation 78 bpm with normal QTc of 466 ms and no findings convincing for acute ischemia. There is a left bundle branch block similar to prior from 11/22/2023. [AK] 1315 I discussed the case with Dr. Charli Li who accepts patient for admission. [AK] ED Course User Index [AK] Mario Portillo MD Diagnoses as of 01/30/25730 Encephalopathy Urinary tract infection without hematuria, site unspecified Chronic conditions and social determinants of health affecting care: recurrent UTI DISPOSITION/PLAN Admit 01/29/2025 01:15:38 PM Mario Portillo MD Emergency Medicine [1] Past Medical History: Diagnosis Date A-fib (HCC) Anemia Diabetes (HCC) Lymphedema Obesity Mario Portillo MD 01/30/25730 documented in this encounter [facility] 01-29-2025 Physician Emergency department Note Emergency Department Encounter Pt Name: Salazar Coyle Birthdate 1950 Date of evaluation: 01/29/2025 Provider: Mario Portillo MD CHIEF COMPLAINT Chief Complaint Patient presents with Altered Mental Status Pt arrives via EMS from [facility] for AMS. Per report pt family was visiting yesterday and noted pt was not herself. Normally aox4. Staff noted HR in 120s this am and not speaking normally and moaning all morning. HISTORY OF PRESENT ILLNESS HPI Salazar Coyle is a 74 y.o. female with history that includes IDDM, recurrent UTI, morbid obesity, presenting to the emergency department for evaluation of status change. Patient was noted to not be herself according to family yesterday. She is normally alert and fully oriented. This morning her heart rate was noted to be in the 120s and she was not speaking normally and she was moaning and she was therefore sent to the emergency department. Upon arrival, patient is confused and doesn't seem to understand my questions. Nursing Notes were reviewed. Medical History[1] REVIEW OF SYSTEMS Several elements of the ROS reviewed and otherwise acutely negative except as in the HPI. PHYSICAL EXAM ED Triage Vitals Temp Heart Rate Resp BP 01/29/25 0947 01/29/25 0942 01/29/25 0942 01/29/25 0942 36.8 C (98.2 F) (!) 118 18 (!) 131/55 SpO2 Temp Source Heart Rate Source Patient Position 01/29/25 0942 01/29/25 0947 -- -- 97 % Oral BP Location FiO2 (%) -- -- Physical Exam Vitals and nursing note reviewed. Constitutional: General: She is not in acute distress. Appearance: She is well-developed. She is obese. She is ill-appearing. Comments: Patient is laying supine. She is awake. HENT: Head: Normocephalic and atraumatic. Mouth/Throat: Mouth: Mucous membranes are dry. Eyes: Conjunctiva/sclera: Conjunctivae normal. Cardiovascular: Rate and Rhythm: Normal rate and regular rhythm. Heart sounds: No murmur heard. Pulmonary: Effort: Pulmonary effort is normal. No respiratory distress. Breath sounds: Normal breath sounds. Abdominal: Palpations: Abdomen is soft. Tenderness: There is no abdominal tenderness. Musculoskeletal: General: No swelling. Cervical back: Neck supple. Skin: General: Skin is warm and dry. Neurological: Mental Status: She is alert. She is confused. Comments: GCS 13 with -1 speech and -1 motor Unable to cooperate with NIHSS evaluation. She is dysarthric but I appreciate no facial asymmetry. Psychiatric: Mood and Affect: Mood normal. EMERGENCY DEPARTMENT COURSE and DIFFERENTIAL DIAGNOSIS/MDM: Differential diagnoses include: Encephalopathy, CVA (regardless, would be outside the window for intervention given onset of symptoms yesterday), in for patient, abnormality, anemia. Sources of history: I reviewed the charge summary from 10/18/2024. She had been admitted for acute metabolic encephalopathy and severe sepsis, additionally had aspiration pneumonia, acute on chronic hypoxic hypercapnic respiratory failure, demand related NSTEMI, acute renal insufficiency. Diagnostic tests considered but not performed: CTA head/neck; low suspicion for CVA ED course: ED Course as of 01/30/25730 Celeste Jan 29, 2025 1133 UA is abnormal. Most recent urine culture that was abnormal was from 11/22/2023 growing E. coli and Providencia stuartii. Based on susceptibility patterns, Zosyn will be given to her today. [AK] 1133 I interpreted the chest x-ray as showing no focal consolidation or pulmonary edema. [AK] 1138 I interpreted the ECG as showing atrial fibrillation 78 bpm with normal QTc of 466 ms and no findings convincing for acute ischemia. There is a left bundle branch block similar to prior from 11/22/2023. [AK] 1315 I discussed the case with Dr. Charli Li who accepts patient for admission. [AK] ED Course User Index [AK] Mario Portillo MD Diagnoses as of 01/30/25730 Encephalopathy Urinary tract infection without hematuria, site unspecified Chronic conditions and social determinants of health affecting care: recurrent UTI DISPOSITION/PLAN Admit 01/29/2025 01:15:38 PM Mario Portillo MD Emergency Medicine [1] Past Medical History: Diagnosis Date A-fib (HCC) Anemia Diabetes (HCC) Lymphedema Obesity Mario Portillo MD 01/30/25730 [facility] 10-18-2024 Miscellaneous Notes Problem: Knowledge Deficit Goal: Patient/family/caregiver demonstrates understanding of disease process, treatment plan, medications, and discharge instructions Outcome: Adequate for Discharge Problem: Potential for Falls Goal: I will remain free of falls Outcome: Adequate for Discharge Problem: Discharge Barriers Goal: My discharge needs are met Outcome: Adequate for Discharge Problem: Cardiovascular - Adult Goal: Maintains optimal cardiac output and hemodynamic stability Outcome: Adequate for Discharge Goal: Absence of cardiac dysrhythmias or at baseline Outcome: Adequate for Discharge Problem: Cardiovascular - Adult Goal: Absence of cardiac dysrhythmias or at baseline Outcome: Adequate for Discharge Problem: Skin/Tissue Integrity - Adult Goal: Skin integrity remains intact Outcome: Adequate for Discharge Goal: Incisions, wounds, or drain sites healing without S/S of infection Outcome: Adequate for Discharge Goal: Oral mucous membranes remain intact Outcome: Adequate for Discharge Problem: Metabolic/Fluid and Electrolytes - Adult Goal: Electrolytes maintained within normal limits Outcome: Adequate for Discharge Goal: Hemodynamic stability and optimal renal function maintained Outcome: Adequate for Discharge Goal: Glucose maintained within prescribed range Outcome: Adequate for Discharge Problem: Problem Interventions Goal: Promote nutritional intake Outcome: Adequate for Discharge Problem: Pain - Adult Goal: Verbalizes/displays adequate comfort level or baseline comfort level Outcome: Adequate for Discharge Problem: Safety - Adult Goal: Free from fall injury Outcome: Adequate for Discharge Problem: Discharge Planning Goal: Discharge to home or other facility with appropriate resources Outcome: Adequate for Discharge Problem: Chronic Conditions and Co-morbidities Goal: Patient's chronic conditions and co-morbidity symptoms are monitored and maintained or improved Outcome: Adequate for Discharge Patient Choice Patient Name: SALAZAR COYLE Date of : 1950 All Providers Sent Referral Name: Alis Phone: [phone] Address: [address] [place] [address] [place] [address] Next Site of Care Admission Date: 10/09/2024 02:27 PM Patient Name: SALAZAR COYLE Location: [address]/[facility] [id number] Date of : 1950 ------ Placement Information ------ Referral Type:Residential/SNF - Return Referral ID:[id number] Provider Name: Address 1: Phone Number: Address 2: Fax Number: City: Selection Factors: State: Referral Type:Residential/SNF - New Referral ID:[id number] Provider Name: Address 1: Phone Number: Address 2: Fax Number: City: Selection Factors: State: Referral Type:Residential ICF - Return Referral ID:[id number] Provider Name:[facility] Address 1:[address] [place] [address] Address 2: City:[place] Selection Factors:Returning to Facility State:[place] Care Management Progress Note Short Medical why still here: Medically stable for DC Planned Discharge Disposition: Correction Facility ([facility]) Barriers/Today we still Wait: Attending completion of discharge workflow Length of Stay (Days): 9 GMLOS: 4.9 Plan is for patient to return to [facility] facility. Transport already arranged by weekday staff for 1000 this AM. Confirmed with attending that patient remains medically stable for DC. Active DC orders now in place. Messaged bedside RN to notify of transport time and provide number to call report. Sent return LTC referral via [facility] to facility in order to forward DC paperwork. Per task, facility and family already aware of transport time. CM tasked to follow patient through the weekend to assist with discharge needs. Chart reviewed. Expected Discharge, Rapid Rounding, and Discharge Milestones / Delays updated as appropriate. Received return LTC response from [facility] - confirmed they're aware of DC this AM. Sent MAY. Will send DC Summary once available. Sent AVS and DC summary to facility via [facility]. Problem: Knowledge Deficit Goal: Patient/family/caregiver demonstrates understanding of disease process, treatment plan, medications, and discharge instructions Outcome: Progressing Problem: Potential for Falls Goal: I will remain free of falls Outcome: Progressing Problem: Discharge Barriers Goal: My discharge needs are met Outcome: Progressing Problem: Cardiovascular - Adult Goal: Maintains optimal cardiac output and hemodynamic stability Outcome: Progressing Goal: Absence of cardiac dysrhythmias or at baseline Outcome: Progressing Problem: Skin/Tissue Integrity - Adult Goal: Skin integrity remains intact Outcome: Progressing Goal: Incisions, wounds, or drain sites healing without S/S of infection Outcome: Progressing Goal: Oral mucous membranes remain intact Outcome: Progressing Problem: Metabolic/Fluid and Electrolytes - Adult Goal: Electrolytes maintained within normal limits Outcome: Progressing Goal: Hemodynamic stability and optimal renal function maintained Outcome: Progressing Goal: Glucose maintained within prescribed range Outcome: Progressing Problem: Problem Interventions Goal: Promote nutritional intake Outcome: Progressing Problem: Pain - Adult Goal: Verbalizes/displays adequate comfort level or baseline comfort level Outcome: Progressing Problem: Discharge Planning Goal: Discharge to home or other facility with appropriate resources Outcome: Progressing Problem: Safety - Adult Goal: Free from fall injury Outcome: Progressing Problem: Discharge Planning Goal: Discharge to home or other facility with appropriate resources Outcome: Progressing Problem: Chronic Conditions and Co-morbidities Goal: Patient's chronic conditions and co-morbidity symptoms are monitored and maintained or improved Outcome: Progressing Notified by nursing of bruising present on patient hands. Patient reporting that she was pulled by ED staff upon arrival with EMS, and someone kneeled on both her hands. There is some redness on the dorsum of right hand, bruising present on posterior aspect of left thumb. Distal pulses intact in BL UE. No tenderness to palpation on both hands. Full ROM on BL hands. Will obtain BL xray of hands. Did speak with patient's daughter Deidra to discuss if she had spoken with her father yet today. She stated that they decided for patient to return to [facility] until they got her medicaid figured out. Did update attending and primary care nurse of this. Did update [facility] of this and also [facility] and transport scheduled for 10 am tomorrow via roundtrip link. Did update [facility] of this via [facility]. Did call and update patient's daughter Deidra of transport time for tomorrow and that there is always possibility of a bill with ambulance transport. She acknowledges verbal understanding of this. Weekend TCC updated to follow. . [facility] did confirm that patient's family did not visit yesterday. Called and spoke with patient's daughter Deidra to discuss. She stated, " we did not go because somebody from the hospital called and told us that we could transfer her from [facility] and they were in a hurry to get her back. " Did update daughter that she spoke with this TCC yesterday and asked if she remembered requesting that attending call and speak with her dad to discuss discharge and that after attending spoke with her dad, her dad stated they were going to [facility] yesterday afternoon. She did not hear from her dad yesterday after attending contacted him. Did discuss with Deidra that TCC had discussed with [facility] and they do have private rooms available, but would need to get patient's medicaid figured out, as it had lapsed and would need to complete financial questionnaire to accept patient under medicaid pending. Deidra was agreeable to patient returning to [facility] and that patient could be transferred from [facility] until medicaid could be figured out. She requested that TCC contact her father Jesus and update him that had spoken with her today and our conversation. Did call patient's spouse Jesus to discuss. Did ask him if he was able to get to her [facility] yesterday and he stated no because they called and someone at the facility told them that the person they needed to talk to was not available yesterday and they were going back this afternoon to meet with them. He did state he was aware of paperwork needing to be completed. Did contact Camille from admissions at [facility] and she verified that they had not received any calls from the family yesterday. Attempted to call daughter Deidra back x 2 to discuss and had to leave a message. . Care Management Progress Note Short Medical why still here: messaged [facility] to determine if family was able to visit yesterday and if they were able to verify medicaid. Awaiting reply. Will update attending and primary care nurse once if facility is able to accept. Planned Discharge Disposition: [facility] Facility Barriers/Today we still Wait: Clinical stability, Symptomatic control Length of Stay (Days): 8 GMLOS: No GMLOS Documented . . Problem: Potential for Falls Goal: I will remain free of falls 10/17/2024532 by Annette Obregon RN Outcome: Progressing 10/17/2024532 by Annette Obregon RN Outcome: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 engage with repositioning and hygiene yield no results. Pt did feed herself this shift with her rt hand. Po fluids and adequate nutrition obtained. Pt scheduled to be discharge tomorrow to SNF. CVC line dressing changed this shift, line to be pulled prior to pt leaving hospital. Call light in reach. FYI JENN is complete just need discharging nurse and and belongings. Make sure the pt leaves with cellular device. Late entry= patient refused to allow anyone to touch her legs She screamed when we turned patient. Heel boots on bilaterally. Patient also refused to allow this nurse to sit her up to take her meds, she stated it hurts her legs too much. Explained to patient the possibility of aspiration. Patient verbalized understanding but continues to refuse. Noted spoke with pts Daughter who is the POA, informed daughter of the safety risk involving the pt wanting to continue to lay flat to eat. Daughter is aware and knows the risk involved. Daughter would also like to talk to social work for other placement options for her mother. Noted this this shift pt was uncooperative with care being provided by nurse and other staff members. Pt refused to have her head tilted up in proper position to eat and drink fluids. Pt yelled and screamed stating that she did not want her head up and to get out of her room. When asked did she want to get washed up and for the nurse to look over her skin for noted Txs. Pt refused and stated that she did not want to be touched at all. (No txs done this shift.) SPT consulted to further assess pt eating habits, please refer to SPT note. Braxton was able to see pt this afternoon and also observed pts behaviors. Pt also dislikes her Beri Bed. Stated, I do not like the movement within the bed." Pt educated on why the bed off- loads her prominent areas. Per pt "I do not care, I want this bed shahab." Pt resting supine, call light in reach, VS wnl. is aware. MRI scheduled today, pt was transported to the MRI and was unable to proceed do to her obesity so CT order placed. Pt was able to have CT done. Results pending. internal jugular triple lumen: located rt side of pt neck to be removed prior to pt leaving hospital, ok to remain for access per MD. Site intact, no s/s of infection noted. 10/15/24 06:00 AM: Patient refused dressing changes this am. Report called to Beth FRAZIER on [address]. Fabiana Roman RN 10/14/2024 6:14 PM Unable to do MRI screening at this time. Patient confused and refusing to answer questions. Fabiana Roman RN 10/14/2024 4:38 PM Patient continues to refuse hygiene care at this time. "Doesn't want to be touched: Fabiana Roman RN 10/14/2024 4:15 PM Patient refusing morning care. Refusing assessment. Refusing wound care. Fabiana Roman RN 10/14/2024 8:43 AM documented in this encounter [facility] 10-17-2024 History of Present illness Narrative Images from the original note were not included. Nutrition Assessment Type and Reason for Visit: Reassess Nutrition Recommendations/Plan: Suggest goal of 60 gm CHO/meal, REE diet Continue Pete bid as ordered. Per mnt protocol will add Pro-Stat once daily (15 gm prot/100 kcals) for pt to try Please continue to record meal and supplement intakes in RN Flowsheets RD to monitor labs, weight, skin status, PO intake -follow up weekly Malnutrition Assessment: Malnutrition Status: At risk for malnutrition (Comment) (acute illness) Context: Acute Illness Nutrition Assessment: 74 y.o. female admitted for severe sepsis and acute on chronic hypoxic hypercapnic respiratory failure and acute metabolic encephalopathy in setting of presumed acute aspiration PNA. LASER PRINTING OPERATOR sign off 10/16 "however, pt remains at risk for airway compromise and choking due to poor positioning, limited mobility, and lying completely flat to eat all meals" per LASER PRINTING OPERATOR. Pt stable for discharge per records -SNF. CT of cervical spine showing significant chronic degenerative changes consistent with prior imaging. Pt reports tolerating meals without concerns at this time -pt states she likes and is drinking Pete -to continue as this time. variable po intakes per records will add Pro-Stat for pt to try. Estimated Daily Nutrient Needs: Energy Requirements Based On: Kcal/kg Weight Used for Energy Requirements: [place] Weight for Energy Calculation (kg): 57 kg Total Energy Requirements (kcals/day): 6973-7737 kcals (25-30 kcals/kg) Weight Used for Protein Requirements: [place] Weight in Kg Used for Protein Requirements: 57 kg Estimated Total Protein (g/day): 68-86g (1.2-1.5g/kg) Estimated Daily Total Fluid (ml/day): 1425 ml/day or per MD Nutrition Related Findings: bm 10/16. +2 kaci LE, mod kaci UE and +2 generalized edema. bun 29, bgluc 156, 175, 135, calcium 8.2, alb 2.2, hgb 10.7, hct 33.8. wt hx reviewed ?accuracy of bed scale Wound Type: Multiple (fragile skin, Right plantar foot: Diabetic foot ulcer Right great toe: DFU (skin depth) Right 4th toe: DFU (skin depth), Bilateral lower extremities: Venous stasis dermatitis, lymphedema. Right forearm: Skin tear per Wound Care notes) 10/17/24 0600 168 kg (369 lb 14.9 oz)! 10/15/24 0639 Standing scale 167 kg (367 lb 4.6 oz) 10/12/24 0600 -- 154 kg (339 lb 8.1 oz) 10/10/24 1000 Bed scale 155 kg (341 lb 0.8 oz) Labs and meds reviewed: Scheduled Meds[1] Continuous Meds[2] Lab Results Component Value Date GLUCOSE 156 (H) 10/17/2024 CALCIUM 8.2 (L) 10/17/2024 NA 143 10/17/2024 K 3.8 10/17/2024 CO2 27 10/17/2024 CL 108 (H) 10/17/2024 BUN 29 (H) 10/17/2024 CREATININE 0.76 10/17/2024 Lab Results Component Value Date WBC 5.7 10/17/2024 HGB 10.7 (L) 10/17/2024 HCT 33.8 (L) 10/17/2024 MCV 98.3 10/17/2024 PLT 210 10/17/2024 Lab Results Component Value Date ALT <6 10/17/2024 AST 17 10/17/2024 ALKPHOS 56 10/17/2024 BILITOT 0.3 10/17/2024 Recent Labs 10/16/24 0803 10/16/24 1120 10/16/24 1624 10/16/24 2013 10/17/24 0739 10/17/24 1111 POCGLU 168* 220* 310* 250* 135* 175* Lab Results Component Value Date HGBA1C 8.4 (H) 10/09/2024 No results found for: "VITD25" No results found for: "CHOL", "LDL", "HDL", "TRIG" Current Nutrition Therapies: Adult diet Regular; 5 carb choices (75 gm/meal) Current Oral Intake Average Meal Intake: 26-50%, 51-75%, 76-100% Average Supplements Intake: 26-50% Anthropometric Measures: Height: 165.1 cm (5' 5") Current Body Weight: 155 kg (341 lb 0.8 oz) Weight Source: Bed Scale Admission Body Weight: (n/a) Usual Body Weight: 155 kg (342 lb) (11/24/23 bed scale) % Weight Change (Calculated): -0.3 [place] Body Weight (lbs) (Calculated): 125 lbs [place] Body Weight (Kg) (Calculated): 57 kg % [place] Body Weight (Calculated): 272.8 % BMI (kg/m2) (Calculated): 56.8 Weight Adjustment For: No Adjustment BMI Categories: Obese Class 3 (BMI 40.0 or greater) Nutrition Diagnosis: Inadequate oral intake related to acute injury/trauma, impaired respiratory function as evidenced by poor intake prior to admission Altered nutrition-related lab values related to endocrine dysfuntion as evidenced by lab values Nutrition Interventions: Nutrition Education/Counseling: No recommendation at this time Coordination of Nutrition Care: Continue to monitor while inpatient Plan of Care discussed with: Patient Goals: Previous Goal Met: Progressing toward Goal(s) Goals: PO intake 75% or greater, by next RD assessment Nutrition Monitoring and Evaluation: Behavioral-Environmental Outcomes: None Identified Food/Nutrient Intake Outcomes: Food and Nutrient Intake, Supplement Intake Physical Signs/Symptoms Outcomes: Biochemical Data, Chewing or Swallowing, GI Status, Nausea or Vomiting, Fluid Status or Edema, Hemodynamic Status, Nutrition Focused Physical Findings, Skin, Weight Discharge Planning: (suggest goal of CHO Control 60 gm/meal, REE diet) Susan Mclean RD Contact: *[phone] or via Secure Chat [1] apixaban, 5 mg, Oral, BID chlorhexidine, , Topical, Daily donepezil, 10 mg, Oral, Nightly gabapentin, 300 mg, Oral, TID insulin glargine, 30 Units, SubCUTAneous, Nightly insulin lispro, 0-12 Units, SubCUTAneous, TID WC And insulin lispro, 0-12 Units, SubCUTAneous, Nightly Insulin Lispro, 5 Units, SubCUTAneous, TID WC melatonin, 10 mg, Oral, Nightly miconazole, , Topical, BID pantoprazole (ProtoNix) 40 mg in sodium chloride (PF) 0.9 % 10 mL injection, 40 mg, IntraVENous, q AM sodium chloride 0.9%, 5-40 mL, IntraCATHeter, q8h triamcinolone, , Topical, BID [2] Hospitalist Progress Note 10/17/[id number]: Please page me ([phone]) for patient care issues. [phone]: Please page [facility] Hospitalist for any issues. Subjective: Admit Date: 10/09/2024 PCP: Paige Rivera, DO Room#: [id number] B Interval History: patient admitted for sepsis in setting of aspiration PNA. No overnight issues. Complaints reported by patient: she reports feeling ok. Denies issues. Adult diet Regular; 5 carb choices (75 gm/meal) 24HR INTAKE/OUTPUT: Intake/Output Summary (Last 24 hours) at 10/17/2024 1128 Last data filed at 10/17/2024 0900 Gross per 24 hour Intake 130 ml Output 1151 ml Net -1021 ml Past Medical History: Medical History[1] LABS: CBC: Recent Labs 10/15/2445010/16/2445510/17/24 043 WBC 4.8 5.2 5.7 RBC 3.33* 3.37* 3.44* HGB 10.3* 10.5* 10.7* HCT 32.9* 32.9* 33.8* MCV 98.8 97.6 98.3 RDW 14.4 14.3 14.6 PLT 179 182 210 BMP: Recent Labs 10/15/2445010/16/2445510/17/24 0438 NA 143 145 143 K 3.9 3.8 3.8 CL 108* 110* 108* CO2 27 30 27 BUN 31* 23 29* CREATININE 0.81 0.74 0.76 GLUCOSE 245* 167* 156* CALCIUM 8.1* 8.1* 8.2* ANIONGAP 8 5 8 LIVER PROFILE: Recent Labs 10/15/2445010/16/2445510/17/24 0438 AST 15 15 17 ALT <6 <6 <6 BILITOT 0.2 0.3 0.3 ALKPHOS 57 58 56 PROT 5.6* 5.4* 5.4* PT/INR: No results for input(s): "PROTIME", "INR" in the last 72 hours. CARDIAC ENZYMES: No results for input(s): "TROPONINI" in the last 72 hours. Procalcitonin: No results found for: PROCAL COVID-19 PCR: No results for input(s): "COVID19" in the last 72 hours. Objective: Vitals: BP 152/61 (BP Location: Left arm, Patient Position: Lying) Pulse 66 Temp 36.6 C (97.8 F) (Temporal) Resp 18 Ht 5' 5" (1.651 m) Wt (!) 369 lb 14.9 oz (168 kg) SpO2 96% BMI 61.56 kg/m Pulse Ox: SpO2 Av % Min: 96 % Max: 96 % Supplemental O2: O2 Flow Rate (L/min): (n/a) General appearance: No apparent distress, appears stated age, obese female in NAD. Respiratory: CTA BL, no wheezing. Cardiovascular: S1 and S2 present, no murmur detected Abdomen: Soft, non-tender, non-distended Skin: Skin color, texture, turgor normal. No rashes or lesions. Distal pulses intact in BL LE, 1+ BL LE edema, 1+ RUE edema as well. Neurologic: grossly non-focal. Medications: Continuous Meds[2] Scheduled Meds[3] Assessment Severe sepsis Acute metabolic encephalopathy Acute on chronic hypoxic hypercapnic respiratory failure Aspiration PNA Completed course of abx on 10/14/24 Admitted to ICU on 10/09/24, transferred out of ICU on 10/11/24 Infectious workup an cultures largely negative aside from presumed aspiration PNA NSTEMI, demand related Acute renal insufficiency on CKD stage 3 Renal function now back to near baseline Right arm weakness, chronic Chronic right sided cervical foraminal narrowing MRI Cervical spine unable to be completed due to patient not fitting into MRI, CT of cervical spine showing significant chronic degenerative changes consistent with prior imaging. Has been evaluated by ortho in the past and recommended for therapy and Pain management follow up She is deemed by ortho previously to not be a candidate for joint injections or surgery Right arm swelling, chronic This has been worked up extensively outpatient with repeat duplex of RUE, she has required several PICC lines in the past, suspect chronic venous insufficiency from repeat PICC line placement affecting venous return IDDM type 2 DM with hyperglycemia Afib on OAC Neurogenic bladder with chronic jose Hx of Recurrent UTI Obesity with BMI of 56 Home medications reviewed and resumed as indicated. Medical Decision Making 10/14/24: Patient admitted for severe sepsis and acute on chronic hypoxic hypercapnic respiratory failure and acute metabolic encephalopathy in setting of presumed acute aspiration PNA. She was admitted to ICU level of care, stabilized and transferred out of ICU on 10/11/24. She completed course of abx on 10/14/24, per discussion with ID abx stewardship committee recs. She is followed by pulmonology as well. Labs and vitals reviewed and stable. She has known cervical spine pathology and has been evaluated by ortho in the past regarding cervical disease however not a candidate for surgery or joint injections. She is reporting continued right arm weakness, will obtain repeat MRI of cervical spine as last MRI was in 2022, however doubt change in treatment course overall. She is from LTC facility, plan to return in the next 1-2 days. CBC and CMP in the AM. 10/15/24: patient labs and vitals reviewed and stable. She is unable to fit inside MRI machine, MRI cervical spine negative, CT of cervical spine ordered. Plan for return to SNF tomorrow. CBC and CMP in the AM. 10/16/24: CT of cervical spine showing significant chronic degenerative changes consistent with prior imaging. Labs and vitals reviewed and stable. Medically stable for discharge, CM following. Family is trying to get patient into new facility. CBC and CMP in the AM. 10/17/24: labs and vitals reviewed and stable. Family seeking to have patient sent to different facility, [facility] CM following. Awaiting approval. Otherwise medically stable for discharge. CBC and CMP in the AM. -DVT prophylaxis: [] Lovenox [] Heparin [] SCDs [x] Encourage ambulation [x] Already on Anticoagulation Anticipated Discharge - Date - 10/16 vs 10/17 - Location - SNF - Pending the following - auth at Facility. Toxic drug monitoring/narrow therapeutic index drug monitoring : # Drug name : # Route administered : # Method of monitoring : Extended Emergency Contact Information Primary Emergency Contact: Deidra Vang Address: [address] [place] [address] [facility] Mobile Relation: Daughter Secondary Emergency Contact: Jesus Vang Mobile Relation: Spouse Preferred language: [place] 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 No Paige Rivera DO Division of Hospitalist Medicine Inpatient Medical Services/[facility] [place] PAGER: Quynh chat [1] Past Medical History: Diagnosis Date A-fib (CMS/HCC) (HCC) Anemia Diabetes (HCC) Lymphedema Obesity [2] [3] apixaban, 5 mg, Oral, BID chlorhexidine, , Topical, Daily donepezil, 10 mg, Oral, Nightly gabapentin, 300 mg, Oral, TID insulin glargine, 30 Units, SubCUTAneous, Nightly insulin lispro, 0-12 Units, SubCUTAneous, TID WC And insulin lispro, 0-12 Units, SubCUTAneous, Nightly Insulin Lispro, 5 Units, SubCUTAneous, TID WC melatonin, 10 mg, Oral, Nightly miconazole, , Topical, BID pantoprazole (ProtoNix) 40 mg in sodium chloride (PF) 0.9 % 10 mL injection, 40 mg, IntraVENous, q AM sodium chloride 0.9%, 5-40 mL, IntraCATHeter, q8h triamcinolone, , Topical, BID Palliative care previously following peripherally. Noted patient planned to return to [facility] for further care with SNF. Goals are clear, no symptoms to manage. Signing off. Signed, Kailey Bowman APRN, CNP, [facility] Palliative Care/Hospice [facility] [phone] Images from the original note were not included. Speech-Language Pathology SPEECH LANGUAGE PATHOLOGY [facility] Dysphagia Treatment Note Patient Name: Salazar Coyle Evaluation Date: 10/16/2024 Date of : 1950 Admission Date: 10/09/2024 2:27 PM Age: 74 y.o. Room/Bed: [facility] B Subjective Patient alert and cooperative. Seen flat in bed. Answers all basic questions with strong vocal quality. Follows some basic commands. No visitors at bedside. Spoke with MATHEUS Smith who cleared pt for treatment. Current Diet: Dietary Orders (From admission, onward) Start Ordered 10/14/241736 Adult diet Regular; 5 carb choices (75 gm/meal) Diet effective now Question Answer Comment Diet type Regular Carbohydrate restriction: 5 carb choices (75 gm/meal) 10/14/247 10/11/24716 Supplement:Breakfast, Dinner; Pineapple Coconut Pete Until discontinued Question Answer Comment Frequency Breakfast Frequency Dinner Select supplement: Pineapple Coconut Pete 10/11/24716 Oxygen: Oxygen Therapy: None (Room air) O2 Delivery Method: (RA) O2 Flow Rate (L/min): (n/a) Pain: Pt denies any current pain. PPE Worn: gown, gloves Objective & Assessment Dysphagia Treatment # of Activities: 1 Dysphagia Activity 1: Assess dietary tolerance Limited PO trials were attempted. However, pt was agreeable to trying yogurt and small bites of eloina crackers. Pt demonstrated functional bolus containment. Mastication of crackers appeared complete and timely, with no oral residue noted. Hyolaryngeal excursion could not be assessed as pt did not allow palpation with any swallow. An intermittent change in vocal quality was noted. No other s/s pulmonary compromise as noted by no throat clear or coughing. Clinician educated pt that eating would be safer and easier with her head elevated. Clinician was able to tilt the bed slightly to achieve a more optimal angle for PO intake. ST to sign off at this time; however, pt remains at risk for airway compromise and choking due to poor positioning, limited mobility, and lying completely flat to eat all meals. Plan & Recommendations Plan: ST to sign off at this time. Patient has achieved all acute care LASER PRINTING OPERATOR goals. Speech therapy to sign off at this time. D/C Recommendations: No follow up therapy recommended post discharge Education Education Given: swallowing strategies, diet recommendations Given To: patient Response: no evidence of learning Goals Patient Stated Goal: To call her . Encounter Problems Encounter Problems (Resolved) Swallowing Patient will tolerate recommended food and liquid consistencies without clinical signs and symptoms of aspirations (Completed) Start: 10/15/24 Expected End: 10/22/24 Resolved: 10/16/24 Therapy Time LASER PRINTING OPERATOR Individual Minutes Time In: 1120 Time Out: 1140 Minutes: 20 Marianela Vicente LASER PRINTING OPERATOR Graduate Clinician Cosigned by NADIRA Newton at 10/16/2024 3:16 PM EDT Hospitalist Progress Note 10/16/[id number]: Please page wa ([phone]) for patient care issues. [phone]: Please page [facility] Hospitalist for any issues. Subjective: Admit Date: 10/09/2024 PCP: Paige Rivera DO Room#: B4-462/B4-462 B Interval History: patient admitted for sepsis in setting of aspiration PNA. No overnight issues. Complaints reported by patient: she denies issues. Adult diet Regular; 5 carb choices (75 gm/meal) 24HR INTAKE/OUTPUT: Intake/Output Summary (Last 24 hours) at 10/16/2024 1207 Last data filed at 10/16/2024 1046 Gross per 24 hour Intake 470 ml Output 1250 ml Net -780 ml Past Medical History: Medical History[1] LABS: CBC: Recent Labs 10/14/24 0632 10/15/24 0451 10/16/24 0456 WBC 4.6 4.8 5.2 RBC 3.41* 3.33* 3.37* HGB 10.6* 10.3* 10.5* HCT 33.7* 32.9* 32.9* MCV 98.8 98.8 97.6 RDW 14.3 14.4 14.3 PLT 154 179 182 BMP: Recent Labs 10/14/24 0632 10/15/24 0451 10/16/24 0456 NA 144 143 145 K 4.0 3.9 3.8 CL 109* 108* 110* CO2 26 27 30 BUN 32* 31* 23 CREATININE 0.78 0.81 0.74 GLUCOSE 171* 245* 167* CALCIUM 8.1* 8.1* 8.1* ANIONGAP 9 8 5 LIVER PROFILE: Recent Labs 10/14/24 0632 10/15/24 0451 10/16/24 0456 AST 16 15 15 ALT <6 <6 <6 BILITOT 0.3 0.2 0.3 ALKPHOS 59 57 58 PROT 5.5* 5.6* 5.4* PT/INR: No results for input(s): "PROTIME", "INR" in the last 72 hours. CARDIAC ENZYMES: No results for input(s): "TROPONINI" in the last 72 hours. Procalcitonin: No results found for: PROCAL COVID-19 PCR: No results for input(s): "COVID19" in the last 72 hours. Objective: Vitals: BP (!) 181/85 Pulse 90 Temp 36.1 C (96.9 F) (Temporal) Resp 20 Ht 5' 5" (1.651 m) Wt (!) 367 lb 4.6 oz (167 kg) SpO2 93% BMI 61.12 kg/m Pulse Ox: SpO2 Av.3 % Min: 93 % Max: 97 % Supplemental O2: O2 Flow Rate (L/min): (n/a) General appearance: No apparent distress, appears stated age, obese female in NAD. Respiratory: CTA BL Cardiovascular: S1 and S2 present, no murmur detected Abdomen: Soft, non-tender, non-distended Skin: Skin color, texture, turgor normal. No rashes or lesions. Distal pulses intact in BL LE, 1+ BL LE edema, 1+ RUE edema as well. Neurologic: grossly non-focal. Medications: Continuous Meds[2] Scheduled Meds[3] Assessment Severe sepsis Acute metabolic encephalopathy Acute on chronic hypoxic hypercapnic respiratory failure Aspiration PNA Completed course of abx on 10/14/24 Admitted to ICU on 10/09/24, transferred out of ICU on 10/11/24 Infectious workup an cultures largely negative aside from presumed aspiration PNA NSTEMI, demand related Acute renal insufficiency on CKD stage 3 Renal function now back to near baseline Right arm weakness, chronic Chronic right sided cervical foraminal narrowing MRI Cervical spine unable to be completed due to patient not fitting into MRI, CT of cervical spine showing significant chronic degenerative changes consistent with prior imaging. Has been evaluated by ortho in the past and recommended for therapy and Pain management follow up She is deemed by ortho previously to not be a candidate for joint injections or surgery Right arm swelling, chronic This has been worked up extensively outpatient with repeat duplex of RUE, she has required several PICC lines in the past, suspect chronic venous insufficiency from repeat PICC line placement affecting venous return IDDM type 2 Afib on OAC Neurogenic bladder with chronic jose Hx of Recurrent UTI Obesity with BMI of 56 Home medications reviewed and resumed as indicated. Medical Decision Making 10/14/24: Patient admitted for severe sepsis and acute on chronic hypoxic hypercapnic respiratory failure and acute metabolic encephalopathy in setting of presumed acute aspiration PNA. She was admitted to ICU level of care, stabilized and transferred out of ICU on 10/11/24. She completed course of abx on 10/14/24, per discussion with ID abx stewardship committee recs. She is followed by pulmonology as well. Labs and vitals reviewed and stable. She has known cervical spine pathology and has been evaluated by ortho in the past regarding cervical disease however not a candidate for surgery or joint injections. She is reporting continued right arm weakness, will obtain repeat MRI of cervical spine as last MRI was in 2022, however doubt change in treatment course overall. She is from LTC facility, plan to return in the next 1-2 days. CBC and CMP in the AM. 10/15/24: patient labs and vitals reviewed and stable. She is unable to fit inside MRI machine, MRI cervical spine negative, CT of cervical spine ordered. Plan for return to SNF tomorrow. CBC and CMP in the AM. 10/16/24: CT of cervical spine showing significant chronic degenerative changes consistent with prior imaging. Labs and vitals reviewed and stable. Medically stable for discharge, CM following. Family is trying to get patient into new facility. CBC and CMP in the AM. -DVT prophylaxis: [] Lovenox [] Heparin [] SCDs [x] Encourage ambulation [x] Already on Anticoagulation Anticipated Discharge - Date - 10/16 vs 10/17 - Location - SNF - Pending the following - CT cervical spine Toxic drug monitoring/narrow therapeutic index drug monitoring : # Drug name : # Route administered : # Method of monitoring : Extended Emergency Contact Information Primary Emergency Contact: Deidra Vang Address: [address] [place] [address] [facility] Mobile Relation: Daughter Secondary Emergency Contact: Jesus Vang Mobile Relation: Spouse Preferred language: [place] 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 No Paige Rivera DO Division of Hospitalist Medicine Inpatient Medical Services/[facility] [place] PAGER: Quynh chat [1] Past Medical History: Diagnosis Date A-fib (CMS/HCC) (HCC) Anemia Diabetes (HCC) Lymphedema Obesity [2] [3] apixaban, 5 mg, Oral, BID chlorhexidine, , Topical, Daily donepezil, 10 mg, Oral, Nightly gabapentin, 300 mg, Oral, TID insulin glargine, 30 Units, SubCUTAneous, Nightly insulin lispro, 0-12 Units, SubCUTAneous, TID WC And insulin lispro, 0-12 Units, SubCUTAneous, Nightly Insulin Lispro, 5 Units, SubCUTAneous, TID WC melatonin, 10 mg, Oral, Nightly miconazole, , Topical, BID pantoprazole (ProtoNix) 40 mg in sodium chloride (PF) 0.9 % 10 mL injection, 40 mg, IntraVENous, q AM sodium chloride 0.9%, 5-40 mL, IntraCATHeter, q8h triamcinolone, , Topical, BID Images from the original note were not included. Speech-Language Pathology SPEECH LANGUAGE PATHOLOGY [facility] Bedside Swallow Evaluation Patient Name: Salazar Coyle Evaluation Date: 10/15/2024 Date of : 1950 Admission Date: 10/09/2024 2:27 PM Age: 74 y.o. Room/Bed: [facility] B IMPRESSION: S/s oropharyngeal dysphagia. Intermittent overt clinical s/s pulmonary compromise with PO. Risk factors for aspiration include poor level of positioning, wet vocal quality, poor mobility, rapid rate of intake with large bites. . RECOMMENDATION: Recommend Easy to chew solids and Thin liquids and meds as tolerated and the following precautions: - Attempt elevated head positioning, more upright - Small bites/sips - 1:1 Assistance - PO only when fully alert -Occasional re-swallows throughout meal Dysphagia NOMS: Level 6: Swallowing is safe, and individual eats and drinks independently and requires no more than minimal cueing. Individual usually self-cues when difficulty occurs. May need to avoid specific food items (e.g., popcorn) or require additional time (due to difficulty with mastication). Pt would benefit from skilled acute LASER PRINTING OPERATOR services to ensure patient tolerance of the recommended diet. Frequency: 2 days/wk for 1 week Barriers: Cognitive deficit, Limited safety awareness, Limited insight into deficits, Upper extremity weakness, Lower extremity weakness, and pain Prognosis: poor D/C Recommendations: to be determined Suggest Palliative CARE to consider GOC discussion for pt's wishes with lack of participation in care that is offered to her. (Poor ability to assess, decreased movement, poor positioning, safe feeding techniques, lack of ability to participate in further testing) Subjective Patient alert and not cooperative, agitated. Seen flat in bed, pt would not allow any adjustment on the bed to be more upright. RN attempt incline to facilitate head in more upright position, pt screamed and insisted return to flat position (holding both fists up in the air at him). Answers all (not always appropriate) basic questions with strong vocal quality. Follows some basic commands. Visitors at bedside - RN. Ku throughout session with multiple subjects. Spoke with MATHEUS Smith who cleared pt to be evaluated. Dysphagia History: Retrospective chart review revealed a history of LASER PRINTING OPERATOR services as follows: 08/2023 Bedside evaluation with recommendation for continue Regular thin liquid diet with assist with most upright sitting position for po intake. Baseline Diet: Regular diet per pt. Current Diet: Dietary Orders (From admission, onward) Start Ordered 10/14/241736 Adult diet Regular; 5 carb choices (75 gm/meal) Diet effective now Question Answer Comment Diet type Regular Carbohydrate restriction: 5 carb choices (75 gm/meal) 10/14/24 1737 10/11/24 0717 Supplement:Breakfast, Dinner; Pineapple Coconut Pete Until discontinued Question Answer Comment Frequency Breakfast Frequency Dinner Select supplement: Pineapple Coconut Pete 10/11/24 0717 Tube Feeding: no Tracheostomy: no Recent Chest Xray/CT of Chest: XR chest 1 view 10/09/2024 FINDINGS: Interval placement of right IJ central venous catheter, with tip projected over the SVC. Cardiac silhouette prominent, which may be due in part to technique, but stable. Lungs are grossly clear. No apparent pneumothorax. Impression 1. Interval placement and position of right-sided central venous catheter, as reported. 2. Otherwise, stable. Report Dictated on Electronically Signed By: Sy Akins MD Electronically Signed Date/Time: 10/09/2024 11:22 PM EDT Oxygen: Oxygen Therapy: None (Room air) O2 Delivery Method: (RA) O2 Flow Rate (L/min): (n/a) Past Medical History: Medical History[1] Past Surgical History: Surgical History[2] Admission Diagnosis: Patient Active Problem List Diagnosis Date Noted Edema 04/11/2021 Sepsis ([facility]) 10/09/2024 Renal calculus, left 01/03/2024 Acute cystitis without hematuria 11/25/2023 Left ureteral calculus 11/25/2023 Altered mental status, unspecified altered mental status type 11/23/2023 Severe sepsis ([facility]) 07/30/2023 Radicular pain in right arm 01/08/2023 Ureteropelvic junction calculus 08/07/2022 WHITLEY (acute kidney injury) ([facility]) 08/07/2022 Chronic venous stasis 08/07/2022 Inflammatory reaction due to indwelling ureteral stent, initial encounter ([facility]) 08/02/2022 Septic shock ([facility]) 06/09/2022 Kidney calculi 11/22/2023 Hypertension 04/15/2021 Hyperlipemia 04/15/2021 Cognitive decline 04/15/2021 Morbid obesity with BMI of 60.0-69.9, adult ([facility]) 04/15/2021 Chronic indwelling Jose catheter 04/15/2021 Foot ulcer ([facility]) 04/13/2021 Wounds, multiple 04/11/2021 PAF (paroxysmal atrial fibrillation) ([facility]) 04/11/2021 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 ([facility]) 04/11/2021 Hyperglycemia 04/11/2021 CKD (chronic kidney disease) 04/11/2021 Asymptomatic bacteriuria 04/11/2021 Anemia 04/11/2021 Bladder spasm 03/08/2021 Type 2 diabetes mellitus with hyperglycemia ([facility]) 03/08/2021 Degenerative disc disease, cervical 03/08/2021 Chronic pain 03/08/2021 Osteoarthrosis 03/08/2021 Recurrent UTI 03/08/2021 Cerebrovascular accident (HCC) 03/08/2021 History of Present Illness: HPI: 74-year-old female with multiple medical comorbidities including dementia, chronic UTI, history of stroke, chronic Jose, recurrent sepsis, multiple hospitalization October and December recently, follows with urology, A-fib on Eliquis, neurologic bladder with Jose, CKD stage III, obstructive sleep apnea, history of vascularRight lower extremity abnormalities, status post history of multiple toe amputations, and significant diabetes, history of E. coli bacteremia, who presents from a nursing facility. Family reports change in mental status. At bedside is patient's son daughter and . Report daughter is the POA. At baseline patient is bedbound, only able to move right upper extremity to command slightly, chronic venous stasis ulcerations, morbid obesity, multiple abnormalities and deformities in the lower extremities. BMI elevated,. On examination, patient appears extremely dehydrated, states mucous membranes with thick indurated mucus in the posterior pharynx, appears excessively dehydrated. Lungs diminished, when patient fell asleep she desaturated to 70% with evidence of apnea, she appears mildly febrile. Somnolent, family reports this is not baseline her baseline, she reports mild abdominal tenderness to palpation especially deflates, consider history, will proceed with additional scanning. Family also reports recently treated with outpatient biotics for urinary tract infection. He is currently being treated for fungal infection, on her neck. Per POA, full code at this time, noted prior DNR paperwork, ongoing discussion, palliative care evaluation. Labs reviewed, glucose elevated, gas with CO2 retention with compensated respiratory hypercapnia acidosis, hemoglobin 12.9, preserved no thrombocytopenia. Ammonia normal, creatinine elevated at baseline of 0.7, anion gap evaluation, will check lactic acid, troponin mild elevated BNP within normal limits, CT scan of the head small focus of left anterior inferior paramedial subpleural region Patient Complaint: Pt with ongoing and multiple complaints, concern for aspiration pneumonia. Pain: Ongoing c/o pain. Pain in neck, arm legs. Telling story of accident and inability to sit up. PPE Worn: gloves Objective Bedside swallow eval completed. Oral Motor Mechanism Limited participation. Currently did not visualize any asymmetry. +lower teeth, no upper dentition. Lip seal WFL. Voice and cough is strong. No cooperative for full evaluation. Pt demonstrated YELLING if not doing exactly what she wanted. Oral Hygiene: moist Swallowing Examination PO Trials - thin liquid, (straw) - mildly thick liquid, (teaspoon, straw) (tomato soup) - easy to chew solids Oral Phase Patient presents with adequate oral receipt of each bolus. There is no anterior bolus loss. There is appropriate bolus containment for each tested texture in the oral cavity. Mastication appeared complete, organized, and timely. Oral transit time appears WFL. There is no oral residue. Pharyngeal Phase Hyolaryngeal excursion clinically is unable to be assessed as pt did not allow palpation with any of the swallow. Inconsistent overt deficits of pharyngeal residuals with change in vocal quality, questionable nasopharyngeal penetration with wet nasal sounds intermittently throughout the session. Last xray does not indicate clinical aspiration alone and stated that lungs are clear, however pt remains at risk for airway compromise and choking risk d/t poor positioning and pt is adamant to lay completely FLAT. Additional Observations: Pt would benefit from MBSS, however functionally cannot be completed in a flat position as structure could not be clearly visualized. Pt c/o about multiple medical deficits and c/o being very sick. Consider Palliative Care discussion for determination of risk and goals of care ongoing. Education Education Given: swallowing strategies, diet recommendations Given To: patient Response: no evidence of learning Goals Patient Stated Goal: To get a new bed. Encounter Problems Encounter Problems (Active) Swallowing Patient will tolerate recommended food and liquid consistencies without clinical signs and symptoms of aspirations Start: 10/15/24 Expected End: 10/22/24 Therapy Time LASER PRINTING OPERATOR Individual Minutes Time In: 1352 Time Out: 1425 Minutes: 33 Merle Wilson, NADIRA [1] Past Medical History: Diagnosis Date A-fib (CMS/HCC) (HCC) Anemia Diabetes (HCC) Lymphedema Obesity [2] Past Surgical History: Procedure Laterality Date CYSTOSCOPY W/ LASER LITHOTRIPSY Left Cysto, left Ureteroscopic laser lithotripsy, left ureteral stent removal.Mili URETEROSCOPY Left 09/27/2023 Cytoscopy, left ureteral stent removal , left flexible ureteroscopic laser lithotripsy. [facility] Spiritual Care Note [facility] Palliative Care Patient Name:Salazar Coyle Chief Complaint: Chief Complaint Patient presents with Altered Mental Status Reason for visit: Follow Up Services Provided To:patient Background and visit note: Follow up visit with patient. She was not having a good day. She shared about waiting to see what her MRI shows due to her neck being hurt. She got agitated when the nurse explained that her bed was to help her not get wounds due to not moving a lot.Will follow up. Is there spiritual distress? YES Comment: Patient was agitated. Interventions: spiritual support provided, emotional support provided, empathetic listening, and validated feelings. Care Plan: connect to higher power. Follow Up: PRN and when patient is able. Debriefed: with patients nurse. Rocio Ravi 10/15/24 Hospitalist Progress Note 10/15/[id number]: Please page me ([phone]) for patient care issues. [phone]: Please page [facility] Hospitalist for any issues. Subjective: Admit Date: 10/09/2024 PCP: Paige Rivera, DO Room#: B4-462/B4-462 B Interval History: patient admitted for sepsis in setting of aspiration PNA. No overnight issues. Complaints reported by patient: reports right arm weakness and neck pain persists. Adult diet Regular; 5 carb choices (75 gm/meal) 24HR INTAKE/OUTPUT: Intake/Output Summary (Last 24 hours) at 10/15/2024 1231 Last data filed at 10/15/2024 0639 Gross per 24 hour Intake 10 ml Output 1650 ml Net -1640 ml Past Medical History: Medical History[1] LABS: CBC: Recent Labs 10/13/2462110/14/24 0632 10/15/24 0451 WBC 4.4 4.6 4.8 RBC 3.35* 3.41* 3.33* HGB 10.5* 10.6* 10.3* HCT 32.8* 33.7* 32.9* MCV 97.9 98.8 98.8 RDW 14.5 14.3 14.4 PLT 152 154 179 BMP: Recent Labs 10/13/2462110/14/24 0632 10/15/24 0451 NA 142 144 143 K 3.9 4.0 3.9 CL 107 109* 108* CO2 26 26 27 BUN 32* 32* 31* CREATININE 0.82 0.78 0.81 GLUCOSE 299* 171* 245* CALCIUM 8.0* 8.1* 8.1* ANIONGAP 9 9 8 LIVER PROFILE: Recent Labs 10/13/24 0622 10/14/24 0632 10/15/24 0451 AST 18 16 15 ALT 7 <6 <6 BILITOT 0.3 0.3 0.2 ALKPHOS 61 59 57 PROT 5.6* 5.5* 5.6* PT/INR: No results for input(s): "PROTIME", "INR" in the last 72 hours. CARDIAC ENZYMES: No results for input(s): "TROPONINI" in the last 72 hours. Procalcitonin: No results found for: PROCAL COVID-19 PCR: No results for input(s): "COVID19" in the last 72 hours. Objective: Vitals: BP 145/69 (BP Location: Left arm, Patient Position: Lying) Pulse 76 Temp 37.1 C (98.7 F) (Temporal) Resp 18 Ht 5' 5" (1.651 m) Wt (!) 367 lb 4.6 oz (167 kg) SpO2 95% BMI 61.12 kg/m Pulse Ox: SpO2 Av.3 % Min: 92 % Max: 96 % Supplemental O2: O2 Flow Rate (L/min): (n/a) General appearance: No apparent distress, appears stated age, obese female in NAD. Respiratory: CTA BL Cardiovascular: S1 and S2 present, no murmur detected Abdomen: Soft, non-tender, non-distended Skin: Skin color, texture, turgor normal. No rashes or lesions. Distal pulses intact in BL LE, 1+ BL LE edema, 1+ RUE edema as well. Neurologic: grossly non-focal. Medications: Continuous Meds[2] Scheduled Meds[3] Assessment Severe sepsis Acute metabolic encephalopathy Acute on chronic hypoxic hypercapnic respiratory failure Aspiration PNA Completed course of abx on 10/14/24 Admitted to ICU on 10/09/24, transferred out of ICU on 10/11/24 Infectious workup an cultures largely negative aside from presumed aspiration PNA NSTEMI, demand related Acute renal insufficiency on CKD stage 3 Renal function now back to near baseline Right arm weakness, chronic Chronic right sided cervical foraminal narrowing MRI Cervical spine unable to be completed due to patient not fitting into MRI, CT of cervical spine pending Has been evaluated by ortho in the past and recommended for therapy and Pain management follow up She is deemed by ortho previously to not be a candidate for joint injections or surgery Right arm swelling, chronic This has been worked up extensively outpatient with repeat duplex of RUE, she has required several PICC lines in the past, suspect chronic venous insufficiency from repeat PICC line placement affecting venous return IDDM type 2 Afib on OAC Neurogenic bladder with chronic jose Hx of Recurrent UTI Obesity with BMI of 56 Home medications reviewed and resumed as indicated. Medical Decision Making 10/14/24: Patient admitted for severe sepsis and acute on chronic hypoxic hypercapnic respiratory failure and acute metabolic encephalopathy in setting of presumed acute aspiration PNA. She was admitted to ICU level of care, stabilized and transferred out of ICU on 10/11/24. She completed course of abx on 10/14/24, per discussion with ID abx stewardship committee recs. She is followed by pulmonology as well. Labs and vitals reviewed and stable. She has known cervical spine pathology and has been evaluated by ortho in the past regarding cervical disease however not a candidate for surgery or joint injections. She is reporting continued right arm weakness, will obtain repeat MRI of cervical spine as last MRI was in 2022, however doubt change in treatment course overall. She is from LTC facility, plan to return in the next 1-2 days. CBC and CMP in the AM. 10/15/24: patient labs and vitals reviewed and stable. She is unable to fit inside MRI machine, MRI cervical spine negative, CT of cervical spine ordered. Plan for return to SNF tomorrow. CBC and CMP in the AM. -DVT prophylaxis: [] Lovenox [] Heparin [] SCDs [x] Encourage ambulation [x] Already on Anticoagulation Anticipated Discharge - Date - 10/16 - Location - SNF - Pending the following - CT cervical spine Toxic drug monitoring/narrow therapeutic index drug monitoring : # Drug name : # Route administered : # Method of monitoring : Extended Emergency Contact Information Primary Emergency Contact: Deidra Vang Address: [address] [place] [address] [place] Relation: Daughter Secondary Emergency Contact: Jesus Vang Mobile Relation: Spouse Preferred language: [place] 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 No Paige Rivera DO Division of Hospitalist Medicine Inpatient Medical Services/[facility] PAGER: Quynh chat [1] Past Medical History: Diagnosis Date A-fib (CMS/HCC) (HCC) Anemia Diabetes (HCC) Lymphedema Obesity [2] [3] apixaban, 5 mg, Oral, BID chlorhexidine, , Topical, Daily donepezil, 10 mg, Oral, Nightly gabapentin, 300 mg, Oral, TID insulin glargine, 30 Units, SubCUTAneous, Nightly insulin lispro, 0-12 Units, SubCUTAneous, TID WC And insulin lispro, 0-12 Units, SubCUTAneous, Nightly Insulin Lispro, 5 Units, SubCUTAneous, TID WC melatonin, 10 mg, Oral, Nightly miconazole, , Topical, BID pantoprazole (ProtoNix) 40 mg in sodium chloride (PF) 0.9 % 10 mL injection, 40 mg, IntraVENous, q AM sodium chloride 0.9%, 5-40 mL, IntraCATHeter, q8h triamcinolone, , Topical, BID Nutrition Assessment Type and Reason for Visit: Reassess Nutrition Recommendations/Plan: Per mnt protocol will add 75 gm CHO /meal to help with blood sugar management (hx DM) Continue Pete bid as ordered -monitor need for additional (protein) supplement Monitor need for Speech Therapy consult for swallow eval Please continue to record meal and supplement intakes in RN Flowsheets RD to monitor labs, weight, skin status, PO intake, skin status/wound healing -follow up weekly Malnutrition Assessment: Malnutrition Status: At risk for malnutrition (Comment) (acute illness) Context: Acute Illness Nutrition Assessment: patient admitted for severe sepsis and acute metabolic encephalopathy in setting of aspiration PNA. transferred out of ICU on 10/11/24. Pulmonology signed off 10/13. evaluated by ortho in the past regarding cervical disease however not a candidate for surgery or joint injection. right arm weakness, repeat MRI of cervical spine planned. Pt reports erika meals with good appetite, states she likes Pete and is drinking as ordered. reviewed menu with pt per her request -diet office updated with pt's meal request -protein food sources encouarged at this time pt added milk at dinner. Estimated Daily Nutrient Needs: Energy Requirements Based On: Kcal/kg Weight Used for Energy Requirements: [place] Weight for Energy Calculation (kg): 57 kg Total Energy Requirements (kcals/day): 7054-2735 kcals (25-30 kcals/kg) Weight Used for Protein Requirements: [place] Weight in Kg Used for Protein Requirements: 57 kg Estimated Total Protein (g/day): 68-86g (1.2-1.5g/kg) Estimated Daily Total Fluid (ml/day): 1425 ml/day or per MD Nutrition Related Findings: trace kaci UE and +3 kaci LE edema. last bm unknown. alb 2.2. wt hx reviewed Wound Type: Multiple, Open Wounds, Wound Consult Pending (wound care assessment of left/right foot calf and right post thigh pending -pt declined assess due to pain; dressing to right foot C/D/I. toe and forearm wound and pressure injury buttock per nursing flowsheets) 10/12/24 0600 154 kg (339 lb 8.1 oz) Abnormal 10/10/24 1000 155 kg (341 lb 0.8 oz) Abnormal Labs and meds reviewed: Scheduled Meds[1] Continuous Meds[2] Lab Results Component Value Date GLUCOSE 171 (H) 10/14/2024 CALCIUM 8.1 (L) 10/14/2024 NA 144 10/14/2024 K 4.0 10/14/2024 CO2 26 10/14/2024 CL 109 (H) 10/14/2024 BUN 32 (H) 10/14/2024 CREATININE 0.78 10/14/2024 Lab Results Component Value Date WBC 4.6 10/14/2024 HGB 10.6 (L) 10/14/2024 HCT 33.7 (L) 10/14/2024 MCV 98.8 10/14/2024 PLT 154 10/14/2024 Lab Results Component Value Date ALT <6 10/14/2024 AST 16 10/14/2024 ALKPHOS 59 10/14/2024 BILITOT 0.3 10/14/2024 Recent Labs 10/12/24201210/13/24 1106 10/13/24 1652 10/13/24201010/14/24 0757 10/14/24 1135 POCGLU 299* 370* 360* 295* 201* 265* Lab Results Component Value Date HGBA1C 8.4 (H) 10/09/2024 No results found for: "VITD25" No results found for: "CHOL", "LDL", "HDL", "TRIG" Current Nutrition Therapies: Adult diet Regular; 5 carb choices (75 gm/meal) Current Oral Intake Average Meal Intake: 76-100% Average Supplements Intake: 26-50% (pt states she is drinking 100% Pete) Anthropometric Measures: Height: 165.1 cm (5' 5") Current Body Weight: 155 kg (341 lb 0.8 oz) Weight Source: Bed Scale Admission Body Weight: (n/a) Usual Body Weight: 155 kg (342 lb) (11/24/23 bed scale) % Weight Change (Calculated): -0.3 [place] Body Weight (lbs) (Calculated): 125 lbs [place] Body Weight (Kg) (Calculated): 57 kg % [place] Body Weight (Calculated): 272.8 % BMI (kg/m2) (Calculated): 56.8 Weight Adjustment For: No Adjustment BMI Categories: Obese Class 3 (BMI 40.0 or greater) Nutrition Diagnosis: Inadequate oral intake related to acute injury/trauma, impaired respiratory function as evidenced by poor intake prior to admission Altered nutrition-related lab values related to endocrine dysfuntion as evidenced by lab values Nutrition Interventions: Nutrition Education/Counseling: No recommendation at this time Coordination of Nutrition Care: Continue to monitor while inpatient Plan of Care discussed with: Patient Goals: Goals: PO intake 75% or greater, by next RD assessment Nutrition Monitoring and Evaluation: Behavioral-Environmental Outcomes: None Identified Food/Nutrient Intake Outcomes: Food and Nutrient Intake, Supplement Intake Physical Signs/Symptoms Outcomes: Biochemical Data, Chewing or Swallowing, GI Status, Nausea or Vomiting, Fluid Status or Edema, Hemodynamic Status, Nutrition Focused Physical Findings, Skin, Weight Discharge Planning: Too soon to determine Susan Mclean RD Contact: *[phone] or via Secure Chat [1] apixaban, 5 mg, Oral, BID chlorhexidine, , Topical, Daily donepezil, 10 mg, Oral, Nightly gabapentin, 300 mg, Oral, TID insulin glargine, 30 Units, SubCUTAneous, Nightly insulin lispro, 0-12 Units, SubCUTAneous, TID WC And insulin lispro, 0-12 Units, SubCUTAneous, Nightly Insulin Lispro, 5 Units, SubCUTAneous, TID WC melatonin, 10 mg, Oral, Nightly miconazole, , Topical, BID mupirocin, 1 Application, Nasal, BID pantoprazole (ProtoNix) 40 mg in sodium chloride (PF) 0.9 % 10 mL injection, 40 mg, IntraVENous, q AM sodium chloride 0.9%, 5-40 mL, IntraCATHeter, q8h [2] Hospitalist Progress Note 10/14/2024 [phone]: Please page me ([phone]) for patient care issues. [phone]: Please page [facility] night Hospitalist for any issues. Subjective: Admit Date: 10/09/2024 PCP: Paige Rivera DO Room#: B2-259/B2-259 A Interval History: patient admitted for sepsis in setting of aspiration PNA. No overnight issues. Complaints reported by patient: reports right arm weakness. Adult diet Regular 24HR INTAKE/OUTPUT: Intake/Output Summary (Last 24 hours) at 10/14/2024 1454 Last data filed at 10/14/2024 0904 Gross per 24 hour Intake 240 ml Output 1100 ml Net -860 ml Past Medical History: Medical History[1] LABS: CBC: Recent Labs 10/12/2445610/13/2462110/14/24 0632 WBC 4.2 4.4 4.6 RBC 3.36* 3.35* 3.41* HGB 10.6* 10.5* 10.6* HCT 33.0* 32.8* 33.7* MCV 98.2 97.9 98.8 RDW 14.6 14.5 14.3 PLT 163 152 154 BMP: Recent Labs 10/12/2445610/13/24 0610/14/24 0632 NA 141 142 144 K 4.0 3.9 4.0 CL 106 107 109* CO2 25 26 26 BUN 33* 32* 32* CREATININE 0.93 0.82 0.78 GLUCOSE 254* 299* 171* CALCIUM 8.0* 8.0* 8.1* ANIONGAP 10 9 9 LIVER PROFILE: Recent Labs 10/12/2445610/13/24 0610/14/24 0632 AST 23 18 16 ALT 7 7 <6 BILITOT 0.4 0.3 0.3 ALKPHOS 61 61 59 PROT 5.7* 5.6* 5.5* PT/INR: No results for input(s): "PROTIME", "INR" in the last 72 hours. CARDIAC ENZYMES: No results for input(s): "TROPONINI" in the last 72 hours. Procalcitonin: No results found for: PROCAL COVID-19 PCR: No results for input(s): "COVID19" in the last 72 hours. Objective: Vitals: BP 120/63 (BP Location: Left arm, Patient Position: Lying) Pulse 66 Temp 36.4 C (97.5 F) (Temporal) Resp 18 Ht 5' 5" (1.651 m) Wt (!) 339 lb 8.1 oz (154 kg) SpO2 96% BMI 56.50 kg/m Pulse Ox: SpO2 Av.8 % Min: 92 % Max: 98 % Supplemental O2: O2 Flow Rate (L/min): 4 L/min General appearance: No apparent distress, appears stated age Respiratory: CTA BL Cardiovascular: S1 and S2 present, no murmur detected Abdomen: Soft, non-tender, non-distended Skin: Skin color, texture, turgor normal. No rashes or lesions. Distal pulses intact in BL LE, 1+ BL LE edema, 1+ RUE edema as well. Neurologic: grossly non-focal. Medications: Continuous Meds[2] Scheduled Meds[3] Assessment Severe sepsis Acute metabolic encephalopathy Acute on chronic hypoxic hypercapnic respiratory failure Aspiration PNA Completed course of abx on 10/14/24 Admitted to ICU on 10/09/24, transferred out of ICU on 10/11/24 Infectious workup an cultures largely negative aside from presumed aspiration PNA NSTEMI, demand related Acute renal insufficiency on CKD stage 3 Renal function now back to near baseline Right arm weakness, chronic Chronic right sided cervical foraminal narrowing MRI Cervical spine pending Has been evaluated by ortho in the past and recommended for therapy and Pain management follow up She is deemed by ortho previously to not be a candidate for joint injections or surgery Right arm swelling, chronic This has been worked up extensively outpatient with repeat duplex of RUE, she has required several PICC lines in the past, suspect chronic venous insufficiency from repeat PICC line placement affecting venous return IDDM type 2 Afib on OAC Neurogenic bladder with chronic jose Hx of Recurrent UTI Obesity with BMI of 56 Home medications reviewed and resumed as indicated. Medical Decision Making 10/14/24: Patient admitted for severe sepsis and acute on chronic hypoxic hypercapnic respiratory failure and acute metabolic encephalopathy in setting of presumed acute aspiration PNA. She was admitted to ICU level of care, stabilized and transferred out of ICU on 10/11/24. She completed course of abx on 10/14/24, per discussion with ID abx stewardship committee recs. She is followed by pulmonology as well. Labs and vitals reviewed and stable. She has known cervical spine pathology and has been evaluated by ortho in the past regarding cervical disease however not a candidate for surgery or joint injections. She is reporting continued right arm weakness, will obtain repeat MRI of cervical spine as last MRI was in 2022, however doubt change in treatment course overall. She is from LTC facility, plan to return in the next 1-2 days. CBC and CMP in the AM. -DVT prophylaxis: [] Lovenox [] Heparin [] SCDs [x] Encourage ambulation [x] Already on Anticoagulation Anticipated Discharge - Date - 10/15 - Location - Home - Pending the following - MRI cervical spine Toxic drug monitoring/narrow therapeutic index drug monitoring : # Drug name : # Route administered : # Method of monitoring : Extended Emergency Contact Information Primary Emergency Contact: Deidra Vang Address: [address] [place] [id number] [facility] Mobile Relation: Daughter Secondary Emergency Contact: Jesus Vang Mobile Relation: Spouse Preferred language: [place] 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 No Paige Rivera DO Division of Hospitalist Medicine Inpatient Medical Services/[facility] PAGER: Epic chat [1] Past Medical History: Diagnosis Date A-fib (CMS/HCC) (HCC) Anemia Diabetes (HCC) Lymphedema Obesity [2] [3] apixaban, 5 mg, Oral, BID chlorhexidine, , Topical, Daily donepezil, 10 mg, Oral, Nightly gabapentin, 300 mg, Oral, TID insulin glargine, 30 Units, SubCUTAneous, Nightly insulin lispro, 0-12 Units, SubCUTAneous, TID WC And insulin lispro, 0-12 Units, SubCUTAneous, Nightly Insulin Lispro, 5 Units, SubCUTAneous, TID WC melatonin, 10 mg, Oral, Nightly miconazole, , Topical, BID mupirocin, 1 Application, Nasal, BID pantoprazole (ProtoNix) 40 mg in sodium chloride (PF) 0.9 % 10 mL injection, 40 mg, IntraVENous, q AM piperacillin-tazobactam, 4,500 mg, IntraVENous, q6h sodium chloride 0.9%, 5-40 mL, IntraCATHeter, q8h vancomycin, 1,500 mg, IntraVENous, q24h Pharmacy to Dose Vancomycin - Progress Note Recent Labs 10/12/24 0457 10/13/24 0622 10/14/24 0632 BUN 33* 32* 32* CREATININE 0.93 0.82 0.78 Lab Results Component Value Date VANCPETRONANDOM 21.7 10/14/2024 VANCOTROUGH 13.7 10/10/2024 Doses, serum creatinine, and vancomycin levels interfaced automatically to [employer] and data has been analyzed and interpreted. Infectious Diagnosis: sepsis Est CrCl: 93 mL/min (Cockcroft-Gault) Assessment: Current regimen vancomycin 1500 mg every 24 hours. Predicted AUC = 507 mg/L*hr (goal 400-600 mg/L*hr) Plan: Is the current dose therapeutic? [x] Yes - obtain next level on 10/21 unless predicted AUC is sub-/supra-therapeutic or change in serum creatinine. Trend serum creatinine. Trend AUC using Bayesian Modeling. Orders placed. DATE: 10/14/24 TIME: 9:49 AM Darrick Huggins RPh Clinical Pharmacist Available via Secure Chat Patient consulted for wound care assessment of left/right foot calf and right post thigh. She is currently resting in bariatric bed refusing to allow this provider to assess wounds. She stated that she is in too much pain and that she cannot be touched. RN at the bedside at this time. RN lifted up blanket to allow this provider to see dressing to right foot that was CDI and patient began screaming, shouting and crying. Patient was reassured that dressing was not going to be removed and after approximately 2-3 minutes of crying and screaming she settled down. ZINA Arellano CNP Wound care services Hospitalist Progress Note 10/13/[id number]: Please page me ([phone]) for patient care issues. [phone]: Please page [facility] night Hospitalist for any issues. Subjective: Admit Date: 10/09/2024 PCP: Paige Rievra, Room#: B2-259/B2-259 A Interval History: Patient is lying on the bed, denies any chest pain shortness of breath or palpitation, alert and oriented x 3 answering my questions appropriately. No other significant overnight issues. Adult diet Regular @[id number]@ 24HR INTAKE/OUTPUT: Intake/Output Summary (Last 24 hours) at 10/13/2024 1219 Last data filed at 10/13/2024 0500 Gross per 24 hour Intake 1253 ml Output 1140 ml Net 113 ml Past Medical History: Medical History[1] LABS: CBC: Recent Labs 10/11/24 04010/12/24 04510/13/24 06 WBC 4.2 4.2 4.4 RBC 3.72* 3.36* 3.35* HGB 11.8 10.6* 10.5* HCT 36.6 33.0* 32.8* MCV 98.4 98.2 97.9 RDW 14.6 14.6 14.5 PLT 153 163 152 BMP: Recent Labs 10/11/24 04010/12/24 04510/13/24 06 NA 143 141 142 K 4.0 4.0 3.9 CL 104 106 107 CO2 24 25 26 BUN 30* 33* 32* CREATININE 1.22* 0.93 0.82 GLUCOSE 412* 254* 299* CALCIUM 8.2* 8.0* 8.0* ANIONGAP 15* 10 9 LIVER PROFILE: Recent Labs 10/11/24 0405 10/12/24 0457 10/13/24 0622 AST 23 23 18 ALT <6 7 7 BILITOT 0.6 0.4 0.3 ALKPHOS 68 61 61 PROT 6.2* 5.7* 5.6* PT/INR: No results for input(s): "PROTIME", "INR" in the last 72 hours. CARDIAC ENZYMES: No results for input(s): "TROPONINI" in the last 72 hours. Procalcitonin: No results found for: PROCAL COVID-19 PCR: No results for input(s): "COVID19" in the last 72 hours. Objective: Vitals: BP 154/81 (BP Location: Left arm, Patient Position: Lying) Pulse 77 Temp 36.1 C (97 F) (Temporal) Resp 20 Ht 5' 5" (1.651 m) Wt (!) 339 lb 8.1 oz (154 kg) SpO2 98% BMI 56.50 kg/m Pulse Ox: SpO2 Av.6 % Min: 92 % Max: 98 % Supplemental O2: O2 Flow Rate (L/min): 4 L/min General appearance: No distress, morbid obese HEENT: Normal cephalic, atraumatic without obvious deformity. Pupils equal, round, and reactive to light. Extra ocular muscles intact. Conjunctivae/corneas clear. Neck: Supple, with full range of motion. No jugular venous distention. Trachea midline. No lymphadenopathy. Respiratory: Normal respiratory effort. Clear to auscultation, bilaterally without Rales/Wheezes/Rhonchi. Cardiovascular: Regular rate and rhythm with normal S1/S2 without murmurs, rubs or gallops. Abdomen: Soft, non-tender, non-distended with normal bowel sounds. No rebound or guarding. Musculoskeletal: No clubbing, cyanosis or edema bilaterally. Full range of motion without deformity, +2 peripheral pulses in all extremities. Skin: Skin color, texture, turgor normal. No rashes or lesions. Neurologic: Neurovascularly intact without any focal sensory/motor deficits. Cranial nerves: II-XII intact, grossly non-focal. Medications: Continuous Meds[2] Scheduled Meds[3] Assessment Severe sepsis Acute metabolic encephalopathy Acute on chronic hypoxic hypercapnic respiratory failure. NSTEMI-demand ischemia. Acute on chronic kidney disease. Aspiration pneumonia-on antibiotics. History of: Insulin-dependent diabetes mellitus. Chronic kidney disease stage III. Atrial fibrillation-on anticoagulation per Neurogenic bladder with chronic Jose. Recurrent urinary tract infection. Prior history of intubation. Morbid obesity BMI 56. Plan: Initially patient was admitted to ICU, sepsis resolved-hemodynamically stable, transferred out of ICU on 10/11 Patient mental status also improved-close to baseline. Currently patient is on room air saturating well, pulmonary evaluated the patient recommended to continue PAP therapy nightly-patient remains at risk for hypercapnia Discussed with ID stewardship-finished antibiotic course, discontinuing antibiotics on 10/13 Acute kidney injury resolved-creatinine is close to baseline. Home medications reviewed and resumed appropriately. Follow-up CBC BMP ordered. PT OT evaluation. DVT prophylaxis: On Eliquis. Disposition: Off antibiotics on 10/13. Patient able to wean off from oxygen currently on room air. Recommended to continue CPAP nightly. Pending placement -am labs, replace lytes prn -increase activity -DVT prophylaxis: [] Lovenox [] Heparin [] SCDs [x] Encourage ambulation [] Already on Anticoagulation Advance Directive: Full Code Discharge planning: TBD Godwin Goetz MD Division of Hospitalist Medicine Inpatient Medical Services/[facility] PAGER: [phone] [1] Past Medical History: Diagnosis Date A-fib (CMS/HCC) (HCC) Anemia Diabetes (HCC) Lymphedema Obesity [2] [3] apixaban, 5 mg, Oral, BID chlorhexidine, , Topical, Daily donepezil, 10 mg, Oral, Nightly gabapentin, 300 mg, Oral, TID insulin glargine, 30 Units, SubCUTAneous, Nightly insulin lispro, 0-12 Units, SubCUTAneous, TID WC And insulin lispro, 0-12 Units, SubCUTAneous, Nightly Insulin Lispro, 5 Units, SubCUTAneous, TID WC melatonin, 10 mg, Oral, Nightly miconazole, , Topical, BID mupirocin, 1 Application, Nasal, BID pantoprazole (ProtoNix) 40 mg in sodium chloride (PF) 0.9 % 10 mL injection, 40 mg, IntraVENous, q AM piperacillin-tazobactam, 4,500 mg, IntraVENous, q6h sodium chloride 0.9%, 5-40 mL, IntraCATHeter, q8h vancomycin, 1,500 mg, IntraVENous, q24h Spiritual Care Note [facility] Palliative Care Patient Name:Salazar Coyle Chief Complaint: Chief Complaint Patient presents with Altered Mental Status Reason for visit: Initial Visit Services Provided To:patient Background and visit note: Introduced myself and pastoral care to patient. She was doing well. Patient shared about going to a [employer] in [place]. 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 She says, "I enjoy life. I enjoy Alexis." Will follow up. Is there spiritual distress? NO Comment: Interventions: spiritual support provided, empathetic listening, partnership building, and promotion of health. Care Plan: connect to self, spiritual reflection, and connect to higher power. Follow Up: PRN and when patient is able. Debriefed: with oil well services superintendent team. Rocio Ravi 10/13/24 Images from the original note were not included. [facility] [place] [facility] [address] [place] [id number] Patient - Salazar Coyle, Age - 74 y.o. - 1950 Room Number - [id number]/[id number] A Consulting - Godwin Goetz MD Primary Care Physician - Paige Rivera DO Date of Admission - 10/09/2024 2:27 PM Hospital Day - 4 Chief Complaint: pain Salazar Coyle is a 74 y.o. female who pulmonary is following for ICU follow-up regarding septic shock Interval History Patient transferred out of ICU 10/11/24. She was originally admitted for septic shock due to complicated UTI in the setting of chronic jose. She required NIV for increased work of breathing. Patient resting comfortably on room air this morning. She is adamant that she will never wear PAP therapy going forward. She denies any issues with breathing this morning, saturating well on room air. All other systems reviewed and negative unless otherwise stated in HPI. Objective Vitals: BP 154/81 (BP Location: Left arm, Patient Position: Lying) Pulse 77 Temp 36.1 C (97 F) (Temporal) Resp 20 Ht 5' 5" (1.651 m) Wt (!) 339 lb 8.1 oz (154 kg) SpO2 98% BMI 56.50 kg/m Pulse Ox: SpO2 Av.6 % Min: 92 % Max: 98 % Supplemental O2: O2 Flow Rate (L/min): 4 L/min I/O 24HR INTAKE/OUTPUT: Intake/Output Summary (Last 24 hours) at 10/13/2024 1141 Last data filed at 10/13/2024 0500 Gross per 24 hour Intake 1253 ml Output 1140 ml Net 113 ml Exam General appearance: Awake, alert, no acute distress. On room air. HEENT: Normocephalic, atraumatic. No scleral icterus, no right/left eye discharge. Conjunctivae normal. Pupils equal round and reactive to light. Right external ear normal, Left external ear normal. No congestion. Mouth: mucous membranes moist. Pharynx, Oropharynx is clear. No oropharyngeal exudate. Neck: ROM normal, No thyromegaly. No cervical lymphadenopathy Cardiovascular: Regular rate and rhythm. Heart sounds normal. Negative for murmur, friction rub, or gallop. Pulmonary: Effort normal, no respiratory distress. No stridor. No wheezing. Abdomen: Soft, no distention, no abdominal tenderness. No guarding. No masses. Musculoskeletal: ROM normal. Skin: Warm and dry. Skin is not jaundiced. No rash Extremities: No clubbing or cyanosis. Chronic lymphedema of lower extremities. Neurological: No focal deficits. Alert and oriented x person, place and time. Mental status is at baseline. No motor weakness. Psychiatric: Mood, behavior, thought content normal. Cooperative with exam. Medications Current Medications Scheduled Meds[1] PRN Mediations PRN Meds[2] IV Drips/Infusions Continuous Meds[3] Labs CBC Results from last 7 days Lab Units 10/13/24 0622 WBC AUTO 10*3/uL 4.4 HEMOGLOBIN g/dL 10.5* HEMATOCRIT % 32.8* PLATELETS 10*3/uL 152 BMP: Results from last 7 days Lab Units 10/13/24 0622 10/12/24 0457 10/11/24 0405 SODIUM mmol/L 142 141 143 POTASSIUM mmol/L 3.9 4.0 4.0 CHLORIDE mmol/L 107 106 104 CO2 mmol/L 26 25 24 BUN mg/dL 32* 33* 30* CREATININE mg/dL 0.82 0.93 1.22* GLUCOSE mg/dL 299* 254* 412* CALCIUM mg/dL 8.0* 8.0* 8.2* ABG: Results from last 7 days Lab Units 10/09/24 1524 SOURCE OF OXYGEN Nasal Cannula (LPM) LIVER PROFILE Results from last 7 days Lab Units 10/13/24 0610/12/24 0457 10/11/24 0405 ALK PHOS U/L 61 61 68 BILIRUBIN TOTAL mg/dL 0.3 0.4 0.6 PROTEIN TOTAL g/dL 5.6* 5.7* 6.2* ALT U/L 7 7 <6 AST U/L 18 23 23 INR PTT No results found for: "PTT" Cultures N/A Radiology All relevant/recent imaging was personally reviewed by me. Please see official radiology report for details. CT chest/abdomen/pelvis without contrast (10/09/24) IMPRESSION: The etiology of symptoms is not certain. Limited study. No convincing major volume loss of lung johnson. No convincing bowel obstruction. Suspected rectal fecal impaction. Consider follow-up after bowel cleansing. Correlate clinically. Atherosclerosis. Cholelithiasis. Nonobstructing renal calculus. Splenic cyst. Assessment Shortness of breath, resolved Acute hypoxemic/hypercarbic respiratory failure, resolved Likely PHOEBE/OHS Acute metabolic encephalopathy, improved Septic shock, resoled Morbid obesity Recommendations Initial episode of hypoxia likely driven by underlying sepsis and hypercarbic respiratory failure in the setting of metabolic encephalopathy, she recovered well with NIV Given likely underlying OHS, I strongly recommended patient move forward with chronic nocturnal NIV, but she is adamant that she will never wear PAP therapy in the future She is saturating well on room air She denies any issues with breathing currently Patient seems high risk for recurrent hypercarbic respiratory failure Pulmonary will sign off, please reach out with any questions or concerns Ronda Garcia MD Pulmonary & Critical Care Medicine [facility] [1] apixaban, 5 mg, Oral, BID chlorhexidine, , Topical, Daily donepezil, 10 mg, Oral, Nightly gabapentin, 300 mg, Oral, TID insulin glargine, 30 Units, SubCUTAneous, Nightly insulin lispro, 0-12 Units, SubCUTAneous, TID WC And insulin lispro, 0-12 Units, SubCUTAneous, Nightly Insulin Lispro, 5 Units, SubCUTAneous, TID WC melatonin, 10 mg, Oral, Nightly miconazole, , Topical, BID mupirocin, 1 Application, Nasal, BID pantoprazole (ProtoNix) 40 mg in sodium chloride (PF) 0.9 % 10 mL injection, 40 mg, IntraVENous, q AM piperacillin-tazobactam, 4,500 mg, IntraVENous, q6h sodium chloride 0.9%, 5-40 mL, IntraCATHeter, q8h vancomycin, 1,500 mg, IntraVENous, q24h [2] PRN medications: dextrose, dextrose, glucagon (rDNA), glucose, HYDROmorphone, magnesium sulfate OR magnesium sulfate, naloxone, ondansetron ODT OR ondansetron, oxyCODONE, potassium chloride CR OR potassium chloride OR potassium chloride, senna-docusate sodium, sodium chloride 0.9%, sodium phosphate in D5 OR sodium phosphate in D5 OR sodium phosphate in D5 [3] Pharmacy to Dose Vancomycin - Progress Note Recent Labs 10/11/24 0405 10/12/24 0457 10/13/24 0622 BUN 30* 33* 32* CREATININE 1.22* 0.93 0.82 Lab Results Component Value Date VANCORANDOM 5.9 (L) 06/10/2022 VANCOTROUGH 13.7 10/10/2024 Doses, serum creatinine, and vancomycin levels interfaced automatically to [employer] and data has been analyzed and interpreted. Infectious Diagnosis: Sepsis Est CrCl: 88 mL/min (Cockcroft-Gault) Assessment: Current regimen vancomycin 1250 mg every 24 hours. Predicted AUC = 388 mg/L*hr (goal 400-600 mg/L*hr) Plan: Is the current dose therapeutic? [x] No - change current regimen to vancomycin 1500 mg every 24 hours for predicted AUC 465 mg/L*hr. Obtain next level on 10/14. Trend serum creatinine. Trend AUC using Bayesian Modeling. Orders placed. DATE: 10/13/24 TIME: 7:49 AM Darrick Huggins [facility] Clinical Pharmacist Available via Secure Chat [facility] Respiratory Care Department Progress Note Comment or reasoning for refusal: Patient was seen in attempts to fulfill CPAP/BiPAP/AutoPAP order. Patient refused PAP therapy/study at this time. Patient was educated on medical need and reasoning for physician order to ensure patient was making an informed medical decision. All of the patient's questions were answered at this time and patient was informed that if the patient changes their mind regarding wearing PAP to hit their "call light" or inform their nurse to contact Respiratory. A second, consecutive night of refusing PAP therapy/study results in order completion in the EMR. If future CPAP/BiPAP/AutoPAP therapy or study is indicated please place another order in the EMR and the assigned Respiratory Therapist will reattempt to fulfill orders. Reason for refusal: Pt Refused Thank you for involving Respiratory in the care of this patient, Pt refused Hospitalist Progress Note 10/12/[id number]: Please page me ([phone]) for patient care issues. [phone]: Please page [facility] night Hospitalist for any issues. Subjective: Admit Date: 10/09/2024 PCP: Paige Rivera, DO Room#: B2-259/B2-259 A Interval History: Patient is lying on the bed, alert and oriented x 3 answering my questions appropriately Denies any pain. No other significant overnight issues. Adult diet Regular @[id number]@ 24HR INTAKE/OUTPUT: Intake/Output Summary (Last 24 hours) at 10/12/2024 1406 Last data filed at 10/12/2024 1359 Gross per 24 hour Intake 1160 ml Output 250 ml Net 910 ml Past Medical History: Medical History[1] LABS: CBC: Recent Labs 10/10/2432510/11/2440410/12/24456 WBC 4.9 4.2 4.2 RBC 3.85 3.72* 3.36* HGB 12.0 11.8 10.6* HCT 38.5 36.6 33.0* MCV 100.0* 98.4 98.2 RDW 14.7 14.6 14.6 PLT 158 153 163 BMP: Recent Labs 10/10/2432510/11/2440410/12/24456 NA 144 143 141 K 4.1 4.0 4.0 CL 106 104 106 CO2 25 24 25 BUN 28* 30* 33* CREATININE 1.10 1.22* 0.93 GLUCOSE 290* 412* 254* CALCIUM 8.3* 8.2* 8.0* ANIONGAP 13 15* 10 LIVER PROFILE: Recent Labs 10/10/2432510/11/2440410/12/24456 AST 22 23 23 ALT 6 <6 7 BILITOT 0.7 0.6 0.4 ALKPHOS 70 68 61 PROT 6.0* 6.2* 5.7* PT/INR: No results for input(s): "PROTIME", "INR" in the last 72 hours. CARDIAC ENZYMES: No results for input(s): "TROPONINI" in the last 72 hours. Procalcitonin: No results found for: PROCAL COVID-19 PCR: No results for input(s): "COVID19" in the last 72 hours. Objective: Vitals: BP 145/53 (BP Location: Left arm, Patient Position: Lying) Pulse 67 Temp 36.9 C (98.4 F) (Temporal) Resp 18 Ht 5' 5" (1.651 m) Wt (!) 339 lb 8.1 oz (154 kg) SpO2 98% BMI 56.50 kg/m Pulse Ox: SpO2 Av.8 % Min: 95 % Max: 100 % Supplemental O2: O2 Flow Rate (L/min): 4 L/min General appearance: No distress, morbid obese HEENT: Normal cephalic, atraumatic without obvious deformity. Pupils equal, round, and reactive to light. Extra ocular muscles intact. Conjunctivae/corneas clear. Neck: Supple, with full range of motion. No jugular venous distention. Trachea midline. No lymphadenopathy. Respiratory: Normal respiratory effort. Clear to auscultation, bilaterally without Rales/Wheezes/Rhonchi. Cardiovascular: Regular rate and rhythm with normal S1/S2 without murmurs, rubs or gallops. Abdomen: Soft, non-tender, non-distended with normal bowel sounds. No rebound or guarding. Musculoskeletal: No clubbing, cyanosis or edema bilaterally. Full range of motion without deformity, +2 peripheral pulses in all extremities. Skin: Skin color, texture, turgor normal. No rashes or lesions. Neurologic: Neurovascularly intact without any focal sensory/motor deficits. Cranial nerves: II-XII intact, grossly non-focal. Medications: Continuous Meds[2] Scheduled Meds[3] Assessment Severe sepsis Acute metabolic encephalopathy Acute on chronic hypoxic hypercapnic respiratory failure. NSTEMI-demand ischemia. Acute on chronic kidney disease. Aspiration pneumonia-on antibiotics. History of: Insulin-dependent diabetes mellitus. Chronic kidney disease stage III. Atrial fibrillation-on anticoagulation per Neurogenic bladder with chronic Jose. Recurrent urinary tract infection. Prior history of intubation. Morbid obesity BMI 56. Plan: Initially patient was admitted to ICU, sepsis resolved-hemodynamically stable, transferred out of ICU on 10/11 Patient mental status also improved-close to baseline. Currently patient is on 3 L nasal cannula saturating well-continue to wean oxygen Continuing broad-spectrum antibiotics with vancomycin and Zosyn, cultures are pending. Acute kidney injury resolved-creatinine is close to baseline. Home medications reviewed and resumed appropriately. Follow-up CBC BMP ordered. PT OT evaluation. DVT prophylaxis: On Eliquis. Disposition: Pending transition to oral antibiotics Possible discharge to correction facility next 2 to 3 days. -am labs, replace lytes prn -increase activity -DVT prophylaxis: [] Lovenox [] Heparin [] SCDs [x] Encourage ambulation [] Already on Anticoagulation Advance Directive: Full Code Discharge planning: TBD Godwin Goetz MD Division of Hospitalist Medicine Inpatient Medical Services/[facility] [place] PAGER: [phone] [1] Past Medical History: Diagnosis Date A-fib (CMS/HCC) (HCC) Anemia Diabetes (HCC) Lymphedema Obesity [2] [3] apixaban, 5 mg, Oral, BID chlorhexidine, , Topical, Daily donepezil, 10 mg, Oral, Nightly gabapentin, 300 mg, Oral, TID insulin glargine, 30 Units, SubCUTAneous, Nightly insulin lispro, 0-12 Units, SubCUTAneous, TID WC And insulin lispro, 0-12 Units, SubCUTAneous, Nightly Insulin Lispro, 5 Units, SubCUTAneous, TID WC melatonin, 10 mg, Oral, Nightly miconazole, , Topical, BID mupirocin, 1 Application, Nasal, BID pantoprazole (ProtoNix) 40 mg in sodium chloride (PF) 0.9 % 10 mL injection, 40 mg, IntraVENous, q AM piperacillin-tazobactam, 4,500 mg, IntraVENous, q6h sodium chloride 0.9%, 5-40 mL, IntraCATHeter, q8h vancomycin, 1,250 mg, IntraVENous, q24h [facility] Respiratory Care Department Progress Note Comment or reasoning for refusal: Patient was seen in attempts to fulfill CPAP/BiPAP/AutoPAP order. Patient refused PAP therapy/study at this time. Patient was educated on medical need and reasoning for physician order to ensure patient was making an informed medical decision. All of the patient's questions were answered at this time and patient was informed that if the patient changes their mind regarding wearing PAP to hit their "call light" or inform their nurse to contact Respiratory. A second, consecutive night of refusing PAP therapy/study results in order completion in the EMR. If future CPAP/BiPAP/AutoPAP therapy or study is indicated please place another order in the EMR and the assigned Respiratory Therapist will reattempt to fulfill orders. Thank you for involving Respiratory in the care of this patient, Images from the original note were not included. ICU Progress Note Name: Salazar Coyle : 1950(74 y.o.) Date: 10/11/24 Team: MICU Attending: Damion Subjective: Hospital Summary:74-year-old female with multiple medical comorbidities including dementia, chronic UTI, history of stroke, chronic Jose, recurrent sepsis, multiple hospitalization October and December recently, follows with urology, A-fib on Eliquis, neurologic bladder with Jose, CKD stage III, obstructive sleep apnea, history of vascularRight lower extremity abnormalities, status post history of multiple toe amputations, and significant diabetes, history of E. coli bacteremia, who presents from a nursing facility. Hypovolemic, LA elevated, septic without shock. Interval Events: mental status improved. Hemodynamically compensated. Mild whitley. Sp IVF. Improving. On abx coag negative staph on bsi cultures . Favor continuing antibiotics at this time. Post cvl , cutaneous contamination likely , repeat blood cultures in 24 hrs. Scheduled Meds:Scheduled Meds[1] Continuous Infusions:Continuous Meds[2] Objective: Last Vitals: BP MAP 135/79 (10/11/24821) 97 (10/11/24821) Arterial BP MAP Temp 36.8 C (98.2 F) (10/11/24821) Pulse 91 (10/11/24821) Resp 15 (10/11/24821) SpO2 100 % (10/11/24821) Weight (!) 155 kg (341 lb 0.8 oz) (10/10/24 1000) BMI Body mass index is 56.75 kg/m . I/O: 10/10 07 - 10/11 0659 In: 4432.8 [P.O.:1910; I.V.:2072.2] Out: 1125 [Urine:1125] Ventilator: Resp Rate (Set): 14 FiO2 (%): 40 % Inspiratory Time (sec): 0.9 sec Oxygen Delivery: O2 Flow Rate (L/min): 4 L/min Invasive Lines / Tubes / Drains: CVC Triple Lumen 10/09/24 Non-tunneled Right Internal jugular (Active) Number of days: 0 Urethral Catheter Coude (Active) Number of days: 0 Central Line Indication: Vesicant infusions/medications at high risk of causing extravasation Chronic jose Restraints: NA - patient is not restrained. Wounds: Wound/Incision 11/23/23 Traumatic Breast Lateral;Left;Lower (Active) Date First Assessed/Time First Assessed: 11/23/23 1038 Primary Wound Type: Traumatic Wound Event: Shear/Friction Location: Breast Wound Location Orientation: Lateral;Left;Lower Wound Description (Comments): excoriation with open area along skin ... Wound/Incision 11/23/23 Traumatic Arm Left;Proximal;Upper;Posterior (Active) Date First Assessed/Time First Assessed: 11/23/23 1043 Present on Original Admission: Yes Primary Wound Type: Traumatic Wound Event: Shear/Friction Location: Arm Wound Location Orientation: Left;Proximal;Upper;Posterior Wound Description (Comme... Wound/Incision 11/23/23 Traumatic Right;Posterior (Active) Date First Assessed/Time First Assessed: 11/23/23 1053 Present on Original Admission: Yes Primary Wound Type: Traumatic Wound Event: Shear/Friction Wound Location Orientation: Right;Posterior Wound Description (Comments): open area to skin fold ... Wound/Incision 11/23/23 Knee Right;Posterior (Active) Date First Assessed/Time First Assessed: 11/23/23 1700 Present on Original Admission: Yes Location: Knee Wound Location Orientation: Right;Posterior Wound Description (Comments): skin split open in crevice of posterior knee fold Wound/Incision 11/23/23 Pressure Injury Leg Proximal;Right;Upper;Posterior (Active) Date First Assessed/Time First Assessed: 11/23/23 1700 Present on Original Admission: Yes Primary Wound Type: Pressure Injury Location: Leg Wound Location Orientation: Proximal;Right;Upper;Posterior Pressure Injury Stage: Stage 2 Wound/Incision 10/09/24 Calf Right (Active) Date First Assessed/Time First Assessed: 10/09/242132 Present on Original Admission: Yes Location: Calf Wound Location Orientation: Right Wound Description (Comments): Red, open Wound/Incision 10/09/24 Foot Right (Active) Date First Assessed/Time First Assessed: 10/09/242134 Location: Foot Wound Location Orientation: Right Wound Description (Comments): Right Great Toe, 4th Toe, Red ,Open Wound/Incision 10/09/24 Leg Left (Active) Date First Assessed/Time First Assessed: 10/09/242147 Present on Original Admission: Yes Location: Leg Wound Location Orientation: Left Wound Description (Comments): [place], Red Wound/Incision 10/09/24 Forearm Right;Dorsal (Active) Date First Assessed/Time First Assessed: 10/09/242150 Location: Forearm Wound Location Orientation: Right;Dorsal Wound Description (Comments): Purple, Red, Open Wound/Incision 10/09/24 Foot Right;Posterior (Active) Date First Assessed/Time First Assessed: 10/09/242152 Location: Foot Wound Location Orientation: Right;Posterior Wound/Incision 10/10/24 Pressure Injury Buttock (Active) Date First Assessed/Time First Assessed: 10/10/24 07 Present on Original Admission: Yes Primary Wound Type: Pressure Injury Location: Buttock Wound Description (Comments): blanchable redness Constitutional: General Appearance []WDWN [x]Obese []Cachectic []Thin [x]Ill Eyes: Inspection of Pupils/Irises Pupils round and react: []Yes []No Sclera: []Icteric []Non-Icteric Inspection of Conjunctiva/Lids Conjunctiva: []Injected []Non-Injected Lids: []Intact []Lesion Present ENT/Mouth: External Inspection of ears/nose [] Normal [] Scar/Lesion/Mass Inspection of teeth/lips/gums Dentition: []Crow Teeth []Dentures Lips/Gums: []Intact []Lesion Present Mucosa: [][place] []Moist []Dry Neck: External Appearance Overall Appearance: []Normal []Lesion/Mass/Crepitus Present Trachea midline: []Yes []No Thyroid []Normal []Enlarged []Tender []Mass []Absent Respiratory: Respiratory effort []Labored [x]Non-Labored [] Mechanically-Ventilated Auscultation [x]Clear []Crackles []Wheezes []Rhonchi Cardiovascular: Auscultation Rate: [x]Regular []Irregular []Tachycardia []Bradycardia Rhythm: [x]Regular []Irregular Murmur: []Present []Absent Extremities Peripheral Edema: [x]Present []Absent Varicosities: []Present []Absent Gastrointestinal: Abdomen Palpation: [x]Soft []Firm []Tender []Non-Tender []Distended []Non-distended Mass: []Present []Absent Bowel Sounds: []Present []Absent Hernia: []Present []Absent Liver/Spleen: []Hepatosplenomegaly []Organomegaly Absent Musculoskeletal: Inspection of Digits and Nails Cyanosis: []Present [x]Absent Clubbing: []Present []Absent Ischemia: []Present []Absent Infection: [x]Present []Absent Extremities BLANCA Equally: Except ([x]RUE [x]RLE [x]LUE [x]LLE) Strength/Tone: Intact and Normal ([]RUE []RLE []LUE []LLE) Skin: Inspection []Normal [x]Rash [x]Lesion []Ulcer Palpation [x]Warm []Cool []Dry []Clammy []Nodules []Induration []Skin-tightening Cap-Refill: [] <3 sec [] >3 seconds (delayed) Neurologic: More alert, self feeding, eating muffin and drinking oj this monring Psych: Mental Status Alert: [x]Yes [] No Oriented: []x0 []X1 [x]X2 []x3 Mood/Affect []Normal []Flat []Agitated []Depressed []Anxious [x]Calm []Sedated []NAD [facility] within last 24 hours- BMP: Recent Labs 10/09/24 1524 10/10/24 0326 10/11/24 0405 NA 144 144 143 K 4.2 4.1 4.0 CL 103 106 104 CO2 27 25 24 BUN 29* 28* 30* CREATININE 1.15* 1.10 1.22* CALCIUM 8.7* 8.3* 8.2* MG -- 1.9 1.9 PHOS -- 3.7 3.0 LFTs: Recent Labs 10/09/24 1524 10/10/24 0326 10/10/24 0337 10/11/24 0405 AST 21 22 -- 23 ALT <6 6 -- <6 PROT 6.7 6.0* -- 6.2* ALBUMIN 2.8* 2.5* -- 2.5* BILITOT 0.7 0.7 -- 0.6 BILIRUBINU -- -- Negative -- ALKPHOS 86 70 -- 68 Glucose: Recent Labs 10/09/24 1437 10/09/24 1524 10/09/24 2215 10/10/24 0326 10/10/24 0339 10/10/24 0753 10/10/24 1100 10/10/24 1552 10/10/24 2052 10/11/24 0405 10/11/24 0825 GLUCOSE -- 291* -- 290* -- -- -- -- -- 412* -- POCGLU 266* -- 299* -- 273* 226* 227* 232* 289* -- 349* Procal: No results for input(s): "PROCAL" in the last 72 hours. CBC: Recent Labs 10/09/24 1524 10/10/24 0326 10/11/24 0405 WBC 7.6 4.9 4.2 HGB 13.9 12.9 12.0 11.8 HCT 40.4 38.5 36.6 PLT 192 158 153 MCV 99.5* 100.0* 98.4 RDW 14.6 14.7 14.6 ABGs: Recent Labs 10/09/24 1524 [id number] Nasal Cannula (LPM) Lactic Acid: Recent Labs 10/10/24 0514 10/10/24 0906 10/10/24 1302 LACTATE 3.1* 2.4* 2.6* INR: No results for input(s): "INR" in the last 72 hours. Cardiac Injury Profile: No results for input(s): "CKTOTAL", "CKMB", "TROPONINI" in the last 72 hours. Labs in Last 3 months: Lab Results Component Value Date TSH 1.649 11/22/2023 INR 1.1 08/02/2023 Microbiology- Urine Cx: Lab Results Component Value Date URINECX No growth (<1,000 CFU/mL) 10/10/2024 Blood Cx: Lab Results Component Value Date BLOODCX Gram-positive cocci (AA) 10/09/2024 Sputum Cx: Lab Results Component Value Date RESPCULT No growth of normal respiratory gaby. 08/01/2023 Gram Stain: Lab Results Component Value Date LABGRAM 08/01/2023 Few Polymorphonuclear leukocytes per low power field LABGRAM Few Epithelial cells per low power field 08/01/2023 LABGRAM No organisms seen 08/01/2023 PNA PCR: Lab Results Component Value Date HUMANMETAPNE Not Detected 08/01/2023 COVID19: No results found for: COVID19 Legionella Ag: Lab Results Component Value Date LEGIONELLAPN Not Detected 08/01/2023 Strep Ag: No results for input(s): "STREPPNEUMO" in the last 72 hours. Imaging- Reviewed ct findings. Assessment and Plan: Principal Problem: Sepsis (HCC) Assessment: Plan Sepsis without shock , with predominant hypovolemic component. Improved. La downtrending . Initially. Encephalopathy on admission. LA> 5, trending down. Mental status improved. Limited iv access on admission, required cvl. Continued on broad spectrum abx. Follow up cultures. Chronic jose. Encephalopathy, improved mentation. Co2 retention, hypovolemia, possible uti with chronic jose. Continue on prn at bedtime niv with ack up rate. Needs auto bipap at bedtime for nocturnal hypoxemia and phoebe / ohs Acute on chronic hypercapnic and hypox respiratory failure improving on o2 andniv. Imroved pulmonary aeration on cxr. Iddm on ssi, goal 140-180. Nstemi without cp , demant dischemia Whitley on ckd, pre renal , continue advance diet hold maintenance fluids Afib hx . Rate controlled, on AC Neurogenic bladded, chronic jose, cultures, abx coverage. Hx of recurrent pneumonia Goals of care. Prior dnr, per poa- full code at this time. Palliative eval appreciated for ongoing discussion. 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 [] [1] apixaban, 5 mg, Oral, BID chlorhexidine, , Topical, Daily donepezil, 10 mg, Oral, Nightly gabapentin, 300 mg, Oral, TID insulin glargine, 30 Units, SubCUTAneous, Nightly insulin lispro, 0-12 Units, SubCUTAneous, TID WC And insulin lispro, 0-12 Units, SubCUTAneous, Nightly Insulin Lispro, 5 Units, SubCUTAneous, TID WC melatonin, 10 mg, Oral, Nightly miconazole, , Topical, BID mupirocin, 1 Application, Nasal, BID pantoprazole (ProtoNix) 40 mg in sodium chloride (PF) 0.9 % 10 mL injection, 40 mg, IntraVENous, q AM piperacillin-tazobactam, 4,500 mg, IntraVENous, q6h sodium chloride 0.9%, 5-40 mL, IntraCATHeter, q8h vancomycin, 1,250 mg, IntraVENous, q24h [2] [facility] Respiratory Care Department Progress Note Comment or reasoning for refusal: Patient was seen in attempts to fulfill CPAP/BiPAP/AutoPAP order. Patient refused NIV Non- invasive ventilation at this time . Patient was educated on medical need and reasoning for physician order to ensure patient was making an informed medical decision. All of the patient's questions were answered at this time and patient was informed that if the patient changes their mind regarding wearing PAP to hit their "call light" or inform their nurse to contact Respiratory. A second, consecutive night of refusing PAP therapy/study results in order completion in the EMR. If future CPAP/BiPAP/AutoPAP therapy or study is indicated please place another order in the EMR and the assigned Respiratory Therapist will reattempt to fulfill orders. Reason for refusal: pt refused non- invasive ventilation (NIV) despite education on benefits for PHOEBE. Risks and consequnces of non-compliance discussed. Pt understands and still declines treatment. RN and HAND I THERMAL CUTTER notified. Thank you for involving Respiratory in the care of this patient, Images from the original note were not included. ICU Progress Note Name: Salazar Coyle : 1950(74 y.o.) Date: 10/10/24 Team: MICU Attending: Damion Subjective: Hospital Summary:74-year-old female with multiple medical comorbidities including dementia, chronic UTI, history of stroke, chronic Jose, recurrent sepsis, multiple hospitalization October and December recently, follows with urology, A-fib on Eliquis, neurologic bladder with Jose, CKD stage III, obstructive sleep apnea, history of vascularRight lower extremity abnormalities, status post history of multiple toe amputations, and significant diabetes, history of E. coli bacteremia, who presents from a nursing facility. Hypovolemic, LA elevated, septic without shock. Interval Events: mental status improved. Advanced diet, lactate cleared, continued on antibiotics. Poor iv access, cvl placed overnight. Cultures pending. Ct reviewed, unrevealing for acute etiologies of sepsis Cxr improved on niv Ongoing family discussion and goals of care. Scheduled Meds:Scheduled Meds[1] Continuous Infusions:Continuous Meds[2] Objective: Last Vitals: BP MAP 141/64 (10/10/24 1122) 87 (10/10/24 1122) Arterial BP MAP Temp 36.8 C (98.2 F) (10/10/24 1122) Pulse 83 (10/10/24 1122) Resp 16 (10/10/24 1122) SpO2 99 % (10/10/24 1122) Weight (!) 155 kg (341 lb 0.8 oz) (10/10/24 1000) BMI Body mass index is 56.75 kg/m . I/O: 10/09 0700 - 10/10 0659 In: 2639.2 [I.V.:288.5] Out: 435 [Urine:435] Ventilator: Resp Rate (Set): 14 FiO2 (%): 40 % Inspiratory Time (sec): 0.9 sec Oxygen Delivery: O2 Flow Rate (L/min): 4 L/min Invasive Lines / Tubes / Drains: CVC Triple Lumen 10/09/24 Non-tunneled Right Internal jugular (Active) Number of days: 0 Urethral Catheter Coude (Active) Number of days: 0 Central Line Indication: Vesicant infusions/medications at high risk of causing extravasation Chronic jose Restraints: NA - patient is not restrained. Wounds: Wound/Incision 11/23/23 Traumatic Breast Lateral;Left;Lower (Active) Date First Assessed/Time First Assessed: 11/23/23 1038 Primary Wound Type: Traumatic Wound Event: Shear/Friction Location: Breast Wound Location Orientation: Lateral;Left;Lower Wound Description (Comments): excoriation with open area along skin ... Wound/Incision 11/23/23 Traumatic Arm Left;Proximal;Upper;Posterior (Active) Date First Assessed/Time First Assessed: 11/23/23 1043 Present on Original Admission: Yes Primary Wound Type: Traumatic Wound Event: Shear/Friction Location: Arm Wound Location Orientation: Left;Proximal;Upper;Posterior Wound Description (Comme... Wound/Incision 11/23/23 Traumatic Right;Posterior (Active) Date First Assessed/Time First Assessed: 11/23/23 1053 Present on Original Admission: Yes Primary Wound Type: Traumatic Wound Event: Shear/Friction Wound Location Orientation: Right;Posterior Wound Description (Comments): open area to skin fold ... Wound/Incision 11/23/23 Knee Right;Posterior (Active) Date First Assessed/Time First Assessed: 11/23/23 1700 Present on Original Admission: Yes Location: Knee Wound Location Orientation: Right;Posterior Wound Description (Comments): skin split open in crevice of posterior knee fold Wound/Incision 11/23/23 Pressure Injury Leg Proximal;Right;Upper;Posterior (Active) Date First Assessed/Time First Assessed: 11/23/23 1700 Present on Original Admission: Yes Primary Wound Type: Pressure Injury Location: Leg Wound Location Orientation: Proximal;Right;Upper;Posterior Pressure Injury Stage: Stage 2 Wound/Incision 10/09/24 Calf Right (Active) Date First Assessed/Time First Assessed: 10/09/242132 Present on Original Admission: Yes Location: Calf Wound Location Orientation: Right Wound Description (Comments): Red, open Wound/Incision 10/09/24 Foot Right (Active) Date First Assessed/Time First Assessed: 10/09/242134 Location: Foot Wound Location Orientation: Right Wound Description (Comments): Right Great Toe, 4th Toe, Red ,Open Wound/Incision 10/09/24 Leg Left (Active) Date First Assessed/Time First Assessed: 10/09/242147 Present on Original Admission: Yes Location: Leg Wound Location Orientation: Left Wound Description (Comments): [place], Red Wound/Incision 10/09/24 Forearm Right;Dorsal (Active) Date First Assessed/Time First Assessed: 10/09/242150 Location: Forearm Wound Location Orientation: Right;Dorsal Wound Description (Comments): Purple, Red, Open Wound/Incision 10/09/24 Foot Right;Posterior (Active) Date First Assessed/Time First Assessed: 10/09/242152 Location: Foot Wound Location Orientation: Right;Posterior Wound/Incision 10/10/24 Pressure Injury Buttock (Active) Date First Assessed/Time First Assessed: 10/10/24 0700 Present on Original Admission: Yes Primary Wound Type: Pressure Injury Location: Buttock Wound Description (Comments): blanchable redness Constitutional: General Appearance []WDWN [x]Obese []Cachectic []Thin [x]Ill Eyes: Inspection of Pupils/Irises Pupils round and react: []Yes []No Sclera: []Icteric []Non-Icteric Inspection of Conjunctiva/Lids Conjunctiva: []Injected []Non-Injected Lids: []Intact []Lesion Present ENT/Mouth: External Inspection of ears/nose [] Normal [] Scar/Lesion/Mass Inspection of teeth/lips/gums Dentition: []Crow Teeth []Dentures Lips/Gums: []Intact []Lesion Present Mucosa: [][place] []Moist []Dry Neck: External Appearance Overall Appearance: []Normal []Lesion/Mass/Crepitus Present Trachea midline: []Yes []No Thyroid []Normal []Enlarged []Tender []Mass []Absent Respiratory: Respiratory effort []Labored [x]Non-Labored [] Mechanically-Ventilated Auscultation [x]Clear []Crackles []Wheezes []Rhonchi Cardiovascular: Auscultation Rate: [x]Regular []Irregular []Tachycardia []Bradycardia Rhythm: [x]Regular []Irregular Murmur: []Present []Absent Extremities Peripheral Edema: [x]Present []Absent Varicosities: []Present []Absent Gastrointestinal: Abdomen Palpation: [x]Soft []Firm []Tender []Non-Tender []Distended []Non-distended Mass: []Present []Absent Bowel Sounds: []Present []Absent Hernia: []Present []Absent Liver/Spleen: []Hepatosplenomegaly []Organomegaly Absent Musculoskeletal: Inspection of Digits and Nails Cyanosis: []Present [x]Absent Clubbing: []Present []Absent Ischemia: []Present []Absent Infection: [x]Present []Absent Extremities BLANCA Equally: Except ([x]RUE [x]RLE [x]LUE [x]LLE) Strength/Tone: Intact and Normal ([]RUE []RLE []LUE []LLE) Skin: Inspection []Normal [x]Rash [x]Lesion []Ulcer Palpation [x]Warm []Cool []Dry []Clammy []Nodules []Induration []Skin-tightening Cap-Refill: [] <3 sec [] >3 seconds (delayed) Neurologic: GCS EYE: 4 - Opens spontaneously GCS MOTOR: 6 - Obeys commands for movement GCS VERBAL: 4 - Confused Total GCS: 14 [] Sensation grossly intact Psych: Mental Status Alert: [x]Yes [] No Oriented: []x0 []X1 [x]X2 []x3 Mood/Affect []Normal []Flat []Agitated []Depressed []Anxious [x]Calm []Sedated []NAD [facility] within last 24 hours- BMP: Recent Labs 10/09/24 1524 10/10/24 032 NA 144 144 K 4.2 4.1 CL 103 106 CO2 27 25 BUN 29* 28* CREATININE 1.15* 1.10 CALCIUM 8.7* 8.3* MG -- 1.9 PHOS -- 3.7 LFTs: Recent Labs 10/09/24 1524 10/10/24 0326 10/10/24 0337 AST 21 22 -- ALT <6 6 -- PROT 6.7 6.0* -- ALBUMIN 2.8* 2.5* -- BILITOT 0.7 0.7 -- BILIRUBINU -- -- Negative ALKPHOS 86 70 -- Glucose: Recent Labs 10/09/24 1437 10/09/24 1524 10/09/24 2215 10/10/24 0326 10/10/24 0339 10/10/24 0753 10/10/24 1100 GLUCOSE -- 291* -- 290* -- -- -- POCGLU 266* -- 299* -- 273* 226* 227* Procal: No results for input(s): "PROCAL" in the last 72 hours. CBC: Recent Labs 10/09/24 1524 10/10/24 0326 WBC 7.6 4.9 HGB 13.9 12.9 12.0 HCT 40.4 38.5 PLT 192 158 MCV 99.5* 100.0* RDW 14.6 14.7 ABGs: Recent Labs 10/09/24 1524 [id number] Nasal Cannula (LPM) Lactic Acid: Recent Labs 10/10/24 0042 10/10/24 0514 10/10/24 0906 LACTATE 3.4* 3.1* 2.4* INR: No results for input(s): "INR" in the last 72 hours. Cardiac Injury Profile: No results for input(s): "CKTOTAL", "CKMB", "TROPONINI" in the last 72 hours. Labs in Last 3 months: Lab Results Component Value Date TSH 1.649 11/22/2023 INR 1.1 08/02/2023 Microbiology- Urine Cx: Lab Results Component Value Date URINECX >100,000 CFU/mL Escherichia coli (A) 11/22/2023 URINECX >100,000 CFU/mL Providencia stuartii (A) 11/22/2023 Blood Cx: Lab Results Component Value Date BLOODCX Blood culture incubation started 10/09/2024 Sputum Cx: Lab Results Component Value Date RESPCULT No growth of normal respiratory gaby. 08/01/2023 Gram Stain: Lab Results Component Value Date LABGRAM 08/01/2023 Few Polymorphonuclear leukocytes per low power field LABGRAM Few Epithelial cells per low power field 08/01/2023 LABGRAM No organisms seen 08/01/2023 PNA PCR: Lab Results Component Value Date HUMANMETAPNE Not Detected 08/01/2023 COVID19: No results found for: COVID19 Legionella Ag: Lab Results Component Value Date LEGIONELLAPN Not Detected 08/01/2023 Strep Ag: No results for input(s): "STREPPNEUMO" in the last 72 hours. Imaging- Reviewed ct findings. Assessment and Plan: Principal Problem: Sepsis (HCC) Assessment: Plan Sepsis without shock , with predominant hypovolemic component. Encephalopathy on admission. LA> 5, trending down. Mental status improved. Limited iv access on admission, required cvl. Continued on broad spectrum abx. Follow up cultures. Chronic jose. Encephalopathy, improved mentation. Co2 retention, hypovolemia, possible uti with chronic jose. Continue on prn at bedtime niv with ack up rate Acute on chronic hypercapnic and hypox respiratory failure improving on o2 andniv. Imroved pulmonary aeration on cxr. Iddm on ssi, goal 140-180. Nstemi without cp , demant dischemia Whitley on ckd, pre renal , continue advance diet and maintenance fluids Afib hx . Rate controlled, on AC Neurogenic bladded, chronic jose, cultures, abx coverage. Hx of recurrent pneumonia Goals of care. Prior dnr, per poa- full code at this time. Palliative eval appreciated for ongoing discussion. senior care prognosis guarded Hx of recurrent uti and septic shock with prior intubation GI Prophylaxis: Pantoprazole IV DVT Prophylaxis: Full anticoagulation Disposition: Remain in ICU Status Critical Care Time: 35 Total critical care time caring for this patient with life threatening, unstable organ failure, including direct patient contact, management of life support systems, review of data including imaging and labs, discussions with other team members and physicians, excluding procedures. [1] [Held by provider] apixaban, 5 mg, Oral, BID chlorhexidine, , Topical, Daily [Held by provider] donepezil, 10 mg, Oral, Nightly [Held by provider] gabapentin, 300 mg, Oral, TID HYDROmorphone, , , HYDROmorphone, , , insulin glargine, 20 Units, SubCUTAneous, Nightly Insulin Lispro, 5 Units, SubCUTAneous, TID WC insulin regular, 0-6 Units, SubCUTAneous, q6h [Held by provider] melatonin, 6 mg, Oral, Nightly miconazole, , Topical, BID mupirocin, 1 Application, Nasal, BID pantoprazole (ProtoNix) 40 mg in sodium chloride (PF) 0.9 % 10 mL injection, 40 mg, IntraVENous, q AM piperacillin-tazobactam, 4,500 mg, IntraVENous, q6h sodium chloride 0.9%, 5-40 mL, IntraCATHeter, q8h vancomycin, 1,250 mg, IntraVENous, q24h [2] sodium chloride, 100 mL/hr, Last Rate: 100 mL/hr (10/10/24 0340) Nutrition Assessment Type and Reason for Visit: Initial, RD Nutrition Re-Screen/LOS (ICU screen) Nutrition Recommendations/Plan: Pt is currently NPO diet without enteral medications Recommend goal of 60g CHO/meal diet to maintain stable glucose at baseline levels. When at least on full liquids, initiate Pete BID per MNT protocol to promote wound healing. Pete provides 90 kcals, 14 g amino acids, and 300 mg Vitamin C per packet serving. Monitor for timely diet advancement, tolerance, weights, and labs. RD will follow. 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 Pt is reportedly bedbound at baseline, and has been residing at [facility] for about 6 years. Pt was placed on NIV overnight for periods of apnea, but tolerating room air now, oxygenating well per RN during rounds. Pt currently remains NPO for now. Pt with multiple skin alterations/wounds and pt would benefit from wound healing supplements. RD weighed the pt via bed scale today at 154.7kg (341#) Estimated Daily Nutrient Needs: Energy Requirements Based On: Kcal/kg Weight Used for Energy Requirements: [place] Weight for Energy Calculation (kg): 57 kg Total Energy Requirements (kcals/day): 3407-5355 kcals (25-30 kcals/kg) Weight Used for Protein Requirements: [place] Weight in Kg Used for Protein Requirements: 57 kg Estimated Total Protein (g/day): 68-86g (1.2-1.5g/kg) Estimated Daily Total Fluid (ml/day): 1425 ml/day or per MD Nutrition Related Findings: +1 BLE edema; BUN 28, GFR 52.2, Glucose 290, 291, Albumin 2.5, Hgb A1c 8.4%; Vancocin, PPI, Lantus, Humulin/Novolin, Zosyn, NaCl- 100 ml/hr Wound Type: Multiple, Open Wounds, Wound Consult Pending (right calf red/open, right foot-great toe/4th toe wound, right forearm wound, left leg pink/red) Current Nutrition Therapies: NPO diet without enteral medications Current Oral Intake Average Meal Intake: NPO Average Supplements Intake: NPO Anthropometric Measures: Height: 165.1 cm (5' 5") Current Body Weight: 155 kg (341 lb 0.8 oz) Weight Source: Bed Scale Admission Body Weight: (n/a) Usual Body Weight: 155 kg (342 lb) (11/24/23 bed scale) % Weight Change (Calculated): -0.3 [place] Body Weight (lbs) (Calculated): 125 lbs [place] Body Weight (Kg) (Calculated): 57 kg % [place] Body Weight (Calculated): 272.8 % BMI (kg/m2) (Calculated): 56.8 Weight Adjustment For: No Adjustment BMI Categories: Obese Class 3 (BMI 40.0 or greater) Nutrition Diagnosis: Inadequate oral intake related to acute injury/trauma, impaired respiratory function as evidenced by NPO or clear liquid status due to medical condition Nutrition Interventions: Nutrition Education/Counseling: No recommendation at this time Coordination of Nutrition Care: Continue to monitor while inpatient Plan of Care discussed with: Rounds Goals: Goals: PO intake 75% or greater, Initiate PO diet, by next RD assessment Nutrition Monitoring and Evaluation: Behavioral-Environmental Outcomes: None Identified Food/Nutrient Intake Outcomes: Diet Advancement/Tolerance, Food and Nutrient Intake Physical Signs/Symptoms Outcomes: Biochemical Data, GI Status, Nausea or Vomiting, Fluid Status or Edema, Nutrition Focused Physical Findings, Skin, Weight Discharge Planning: Too soon to determine Agustin Galeano RD Contact: *[phone] or via Secure Chat Images from the original note were not included. PHYSICAL THERAPY [facility] Name/MRN: Salazar Coyle ([id number]) Date: 10/10/2024 Chart review completed. Patient is bedbound at baseline and is not appropriate for skilled PT services as she is at her baseline. Will complete current PT order at this time. Mari Shrestha, PT Pharmacy to Dose Vancomycin - Progress Note Recent Labs 10/09/24 1524 10/10/24 0326 BUN 29* 28* CREATININE 1.15* 1.10 Lab Results Component Value Date VANCORANDOM 5.9 (L) 06/10/2022 VANCOTROUGH 13.7 10/10/2024 Doses, serum creatinine, and vancomycin levels interfaced automatically to [employer] and data has been analyzed and interpreted. Infectious Diagnosis: sepsis Est CrCl: 106 mL/min (Cockcroft-Gault) Assessment: Current regimen vancomycin 1250 mg every 24 hours. Predicted AUC = 419 mg/L*hr (goal 400-600 mg/L*hr) Plan: Is the current dose therapeutic? [x] Yes - obtain next level on 10/17/24 unless predicted AUC is sub-/supra-therapeutic or change in serum creatinine. [] No - Trend serum creatinine. Trend AUC using Bayesian Modeling. Orders placed. DATE: 10/10/24 TIME: 6:50 AM Kristal Quesada PharmD Clinical Pharmacist Available via Secure Chat documented in this encounter [facility] 10-15-2024 Note Problem: Potential f or Falls Goal: I will remain free of falls Outcome: Progressing Problem: Problem Interventions Goal: Promote nutritional intake Outcome: Progressing [facility] 10-14-2024 Hospital Discharge instructions Selvin Morris RN - 10/14/2024 3:54 PM EDT Images from the original note were not included. Continuity of Care Form Patient Name: Salazar Coyle : 1950 Admit date: 10/09/2024 Discharge date: Code Status Order: Full Code Advance Directives: Y Admitting Physician: Cristino Bruno DO PCP: Paige Rivera DO Discharging Nurse: Selvin MELENDREZ, RN Discharging Hospital Unit/Room#: 462b Discharging Unit Emergency Contact: Extended Emergency Contact Information Primary Emergency Contact: Deidra Vang Address: [address] [place] [address] [facility] Mobile Relation: Daughter Secondary Emergency Contact: Jesus Vang Mobile Relation: Spouse Preferred language: [place] 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 No Past Surgical History: Past Surgical History: Procedure Laterality Date CYSTOSCOPY W/ LASER LITHOTRIPSY Left Cysto, left Ureteroscopic laser lithotripsy, left ureteral stent removal.Mili URETEROSCOPY Left 09/27/2023 Cytoscopy, left ureteral stent removal , left flexible ureteroscopic laser lithotripsy. Mili Immunization History: Immunization History Administered Date(s) Administered Covid-19, Moderna Bivalent Booster, (Age 6y-11y) 05/10/2022 Influenza, High Dose Seasonal, Preservative Free 01/07/2018 Influenza, Unspecified 01/31/2017 Pfizer SARS-CoV-2 Vaccination 04/20/2020, 05/11/2020 Pneumococcal Polysaccharide PPSV23 01/31/2017 Active Problems: Medical Problems Problem List * (Principal) Sepsis (HCC) Edema Septic shock (HCC) Inflammatory reaction due to indwelling ureteral stent, initial encounter (HCC) Ureteropelvic junction calculus Overview Signed 08/07/2022 6:48 PM by Deacon Tariq MD Laser lithotripsy 07/2022 WHITLEY (acute kidney injury) (HCC) Chronic venous stasis Radicular pain in right arm Severe sepsis (HCC) Altered mental status, unspecified altered mental status type Acute cystitis without hematuria Left ureteral calculus Renal calculus, left Hypertension Foot ulcer (HCC) Hyperlipemia Bladder spasm Type 2 diabetes mellitus with hyperglycemia (HCC) Overview Signed 01/14/2022 2:38 PM by Interface, Incoming Problems- [facility] Conversion Important Lab History: HBA1C: 09/2015: >13%, 10/2015: 10.4% Thyroid Function Testing: Renal Function Testin12/2015: Creatinine 0.81 Urine for Microalbumin: Lipid Profile: Liver Profile: Dilated Eye Exam: 09/2015: Hospitalized, Doctor Dmitriy consulted, was on orals at that time, HbA1C was over 13%, insulin was started. 12/2015: First time office visit for Type 2 Diabetes Mellitus management. Known to Doctor Izaguirre through consultation at [facility]. Long acting insulin: Insulin used for this is called: Levemir Bedtime dose 85 units Rapid acting /mealtime insulin: Insulin used for this is called: Novolog Breakfast dose: 40 units Lunchtime dose 40 units Supper dose 40 units States since hospital discharge readings have been significantly above goal. Describes going to Primary Care Provider office and they recently increased insulin to the above doses. I spent a good deal of time with insulin education, after patient provided me a return demonstration, she HAS NOT been injecting insulin at all this whole time. This is likely why she has required less insulin when hospitalized since nurses were administering the insulin. There are two protective caps on the needle, she was only removing the outer one, therefore; has not been actually injecting the insulin. She states she didn't know why it felt like the insulin was running down her skin. States she was never taught the proper way to administer insulin. Denies frequent periods of hypoglycemia. I reviewed its signs and symptoms. Wounds, multiple Degenerative disc disease, cervical Chronic pain Osteoarthrosis PAF (paroxysmal atrial fibrillation) (HCC) Cognitive decline Morbid obesity with BMI of 60.0-69.9, adult (HCC) 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) Recurrent UTI Cerebrovascular accident (HCC) Hyperglycemia Chronic indwelling Jose catheter Overview Signed 01/14/2022 2:39 PM by Interface, Incoming Problems- [facility] Conversion Notes refer to chronic jose going back to 2019 CKD (chronic kidney disease) Asymptomatic bacteriuria Anemia Kidney calculi Isolation/Infection: No active isolations ESBL Nurse Assessment: Last Vital Signs: BP 127/96 (BP Location: Left arm, Patient Position: Lying) Pulse 72 Temp 36 C (96.8 F) (Temporal) Resp 19 Ht 1.651 m (5' 5") Wt (!) 154 kg (339 lb 8.1 oz) SpO2 96% BMI 56.50 kg/m Last documented pain score (0-10 scale): Last Weight: Wt Readings from Last 1 Encounters: 10/12/24 (!) 154 kg (339 lb 8.1 oz) Mental Status: JENN Patient Mental Status: alert IV Access: JENN IV Access: None Nursing Mobility/ADLs: Walking Total assistance Transfer Total assistance Bathing Total assistance Dressing Total assistance Toileting Minimal assistance Feeding Total assistance Store Assistant Total assistance Med Delivery no Wound Care Documentation and Therapy: Wound/Incision 11/23/23 Traumatic Breast Lateral;Left;Lower (Active) Number of days: 326 Wound/Incision 11/23/23 Traumatic Arm Left;Proximal;Upper;Posterior (Active) Number of days: 326 Wound/Incision 11/23/23 Traumatic Right;Posterior (Active) Number of days: 326 Wound/Incision 11/23/23 Knee Right;Posterior (Active) Number of days: 325 Wound/Incision 11/23/23 Pressure Injury Leg Proximal;Right;Upper;Posterior (Active) Number of days: 325 Wound/Incision 10/09/24 Other (comment) Calf Right (Active) Wound Image 10/09/242147 Site Assessment [place];Red;Purple 10/11/24 0800 [place]-Wound Assessment Unable to assess 10/14/24814 Drainage Description Serosanguineous 10/11/24 08 Odor None 10/11/24 0800 Drainage Amount Small 10/11/24 08 Primary Dressing Xeroform;Foam 10/11/24 08 Dressing Status Clean, dry & intact 10/13/242049 Number of days: 4 Wound/Incision 10/09/24 Other (comment) Foot Right (Active) Wound Image 10/09/242146 Site Assessment Unable to assess 10/14/24814 [place]-Wound Assessment Red 10/11/24 0800 Odor None 10/11/24 0800 Drainage Amount None 10/11/24 0800 Primary Dressing Xeroform;ABD;Rolled gauze (Kerlix) 10/11/24 0800 Dressing Status Clean, dry & intact 10/13/242049 Number of days: 4 Wound/Incision 10/09/24 Other (comment) Leg Left (Active) Wound Image 10/09/242148 Site Assessment Unable to assess 10/14/24814 [place]-Wound Assessment Red 10/11/24 0800 Odor None 10/11/24 0800 Drainage Amount None 10/11/24 0800 Primary Dressing Open to air 10/13/242049 Number of days: 4 Wound/Incision 10/09/24 Other (comment) Forearm Right;Dorsal (Active) Wound Image 10/09/242151 Site Assessment Unable to assess 10/14/24 0815 [place]-Wound Assessment Red 10/11/24 0800 Odor None 10/11/24 0800 Drainage Amount None 10/11/24 0800 Primary Dressing Adaptic;Foam 10/11/24 0800 Dressing Status Clean, dry & intact 10/13/242049 Number of days: 4 Wound/Incision 10/09/24 Other (comment) Foot Right;Posterior (Active) Wound Image 10/09/242153 Site Assessment Unable to assess 10/14/2415 [place]-Wound Assessment Red 10/11/24 0800 Odor None 10/11/24 0800 Drainage Amount None 10/11/24 0800 Primary Dressing Xeroform;ABD;Rolled gauze (Kerlix) 10/11/24 08 Dressing Status Clean, dry & intact 10/13/242049 Number of days: 4 Wound/Incision 10/10/24 Pressure Injury Buttock (Active) Site Assessment Unable to assess 10/14/24 0815 Odor None 10/11/24 0800 Drainage Amount None 10/11/24 0800 Treatments Cleansed;Moisture barrier ointment 10/13/24 0950 Primary Dressing Open to air 10/11/24 08 Dressing Status Clean, dry & intact 10/12/24 1600 Number of days: 4 Elimination: Continence: Bowel: yes Bladder: no Urinary Catheter: Indication for use of catheter: chronic urinary retention Colostomy/Ileostomy/Ileal Conduit: None Date of Last BM: 10/16/24 Intake/Output Summary (Last 24 hours) at 10/14/2024 1552 Last data filed at 10/14/2024 0904 Gross per 24 hour Intake 240 ml Output 1100 ml Net -860 ml I/O last 3 completed shifts: In: - (0 mL/kg) Out: 1640 (10.6 mL/kg) [Urine:1640 (0.3 mL/kg/hr)] Weight: 154 kg Safety Concerns: aspiration risk Impairments/Disabilities: none Nutrition Therapy: Current Nutrition Therapy: Oral diet: carb control 5 carbs/meal (2000kcals/day) and Oral nutrition supplement: wound healing twice a day Routes of Feeding: oral Liquids: thin liquids Daily Fluid Restriction: no Last Modified Barium Swallow with Video (Video Swallowing Test): not done Treatments at the Time of Hospital Discharge: Respiratory Treatments: n/a Oxygen Therapy: is not on home oxygen therapy. Ventilator: No ventilator support Rehab Therapies: physical therapy and occupational therapy Weight Bearing Status/Restrictions: no restriction Other Medical Equipment (for information only, NOT a DME order): none Other Treatments: helena care/barrier cream Patient's personal belongings (please select all that are sent with patient): {JENN Patient Belongings:[id number]} RN SIGNATURE: MANAGEMENT/SOCIAL WORK SECTION Inpatient Status Date: 10/09/24 Discharging to Facility/ Agency Name: [facility] Address: [address] [place] [id number] Fax: Dialysis Facility (if applicable) Name: Address: Dialysis Schedule: Phone: Fax: Call Center Coordinator/Occupational Therapist Assistant signature: ICIAN SECTION Name: Salazar Coyle Prognosis: excellent Condition at Discharge: stable Rehab Potential (if transferring to Rehab): excellent Recommended Labs or Other Treatments After Discharge: none The individual is being admitted to a nursing facility directly from an [facility] or a unit of a [facility] that is not operated by or licensed by [facility] under section 5119.14 or 5160-3-15.1 5 The individual requires the level of services provided by a nursing facility for the condition for which he or she was treated in the hospital and, Physician Certification: I certify the above information and transfer of Salazar Coyle is necessary for the continuing treatment of the diagnosis listed and that she requires correction facility for less than 30 days. Update Admission H&P: No change in H&P PHYSICIAN SIGNATURE: documented in this encounter [facility] 10-14-2024 Consult note Formatting of th is note might be different from the original. Vancomycin therapy has been discontinued by Dr Rivera on 10-14-24. Thank you for the consult. Pharmacy signing off for vancomycin dosing. Anibal Celeste [facility], Date: 10/14/24 Time: 2:56 PM Associated Order(s): IP CONSULT TO PALLIATIVE CARE Images from the original note were not included. Palliative Care Initial Consult Chief Complaint: Salazar Coyle is a 74 y.o. female with chief complaint of encephalopathy. Palliative Care will follow peripherally, please contact on-call provider for urgent needs Assessment/Plan Goals of care Salazar Coyle lacks capacity for medical decision-making due to dementia. -legal surrogate decision maker is AYANA Gay, ( ) - patient still to [facility] (Deidra confirmed he is still living) -goals of care include: 1) continue current medical care 2) pain control 3) will remain full code at this time - call to Deidra at above number, introduced myself and service, I had actually seen Salazar at previous admission 08/2023 and spoke with Deidra at that time also. - has not been eating at facility, has been asking for dietary supplements that have not been given, pain continues to be a concern, she is on at facility scheduled baclofen and gabapentin. Dtr has been asking for scheduled oxycodone as at facility patient refuses care due to pain but oxycodone is PRN and she forgets to ask for. Education that she did come in altered, need to monitor for continued wakefulness before scheduling opiate. Our team will continue to follow for this - expressed concern with mother being full code and what that means should heart or breathing stop. I told her that as we age we don't bounce back as well and sometimes not at all. I worry with continued full code we are reaching a point of doing things to her mother rather than for her. Going back to thinking about her mother's quality of life. Will remain full code at this time. 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 Chronic back pain - OARRS reviewed, is [facility] patient not reporting opiates - [facility] MAR reviewed on scheduled baclofen 10mg three times per day, gabapentin 300mg three times per day, PRN oxycodone 5mg q6h, without much as per dtr she forgets to ask for - next week consider scheduling oxycodone if able and appropriate Risk for constipation - due to immobility - add prn senokot S Palliative Care Encounter -Code Status: Full Code - Ongoing counseling of patient and family regarding diagnoses of Respiratory Failure, Determining prognosis in serious illness of Respiratory Failure Discharge planning: Not ready for discharge due to ongoing medical work-up/critical illness Patient meets criteria for general inpatient hospice care: No Palliative Care IDT members involved: None Discussed the plan of care with the other interdisciplinary team (IDT) members of the Palliative Care and Hospice teams and Patient, Family, Primary Attending, and Floor Nurse. Subjective: Subjective/Events Salazar Coyle is a 74 y.o. female living at [facility] for 24 hour care and supervision, PMHx includes: dementia, UTI, chronic jose, CVA, afib, CKD, PHOEBE, PVD RLE with toe amputation, DM, returned to [facility] with confusion, lethargy admitted to ICU for care. Given chronic conditions palliative care consulted for goals of care. Patient awake in bed in NAD, oriented to self and family names. She has back pain, no CP, abdominal pain, breathing easy, no nausea, vomiting, uncertain last BM is hungry Pain Assessment Location: back Description: just hurts all the time Frequency:Daily Duration: year(s) Alleviating Factors: pain medication Exacerbating Factors: unable to associate with any factor Effect:Change in Function, Interference with Activities, and Mood Palliative Care Assessments: Goals of care: Continue Current Management Advanced Directives: Health Care Power of Sheet Metal Supervisor, DNR Functional Assessment: PPS 30% bedbound; can't do any work/extensive disease; total care; reduced intake; full or drowsy or confusion Prognosis: depends upon goals of care Spiritual Assessment: No spiritual distress identified Bereavement and Grief: Grief Issues Not Identified PDMP/OARRS Reviewed: Yes-no reportable medications, resides at [facility] and on gabapentin and oxycodone at facility Social history: Marital status: Children: 2 adult child(jonathan) Living status: fpc Work history: not employed status: No Gnosticism guido: None ROS: See palliative care ROS/ESAS below; All other systems were reviewed and are negative. Monroe Symptom Assessment Score Monroe Score Pain Score (if non-verbal, add .FLACC below) 3 Tiredness Score 0 Nausea Score 0 Depression Score 0 Anxiety Score 0 Drowsiness Score 0 Anorexia Score (0= eating well, 10= not eating) 0 Wellbeing Score (10= worst sense of well-being) 0 Constipation 1 Dyspnea Score (0= no shortness of breath) 4 Family Meeting: Participants: none held Family meeting was held to discuss:N/A Medical History[1] Surgical History[2] Family History[3] Unable to obtain family history due to parents have Allergies[4] Objective: BP 136/53 Pulse 76 Temp 36.9 C (98.4 F) (Oral) Resp 14 SpO2 100% Physical Exam Vitals and nursing note reviewed. Constitutional: Appearance: She is obese. She is ill-appearing. HENT: Head: Normocephalic and atraumatic. Mouth/Throat: Mouth: Mucous membranes are dry. Eyes: General: Right eye: No discharge. Left eye: No discharge. Cardiovascular: Rate and Rhythm: Normal rate and regular rhythm. Pulses: Normal pulses. Heart sounds: Normal heart sounds. No murmur heard. Comments: Generalized edema B post tib/dorsalis pedis palpable Pulmonary: Effort: Pulmonary effort is normal. Breath sounds: Normal breath sounds. Abdominal: General: Bowel sounds are normal. There is no distension. Palpations: Abdomen is soft. There is no mass. Genitourinary: Comments: Jose to gravity Musculoskeletal: General: Deformity (B foot drop) present. Right lower leg: Edema present. Left lower leg: Edema present. Skin: General: Skin is warm and dry. Comments: fragile Neurological: Comments: Oriented to self and family names Psychiatric: Comments: No agitation Medication information: 24-hour PRN meds received: reviewed Results/Verification of Data Review Objective data reviewed (must include dates reviewed for labs, imaging reports and other specialty notes): (CBC, BMP) reviewed 10/10/24 As above Data in Support of Terminal Illness: Is patient hospice appropriate? Eligible, but not consistent with GOC at this time Transition Note Initiated: yes ZINA Garrido CNP [1] Past Medical History: Diagnosis Date A-fib (CMS/HCC) (HCC) Anemia Diabetes (HCC) Lymphedema Obesity [2] Past Surgical History: Procedure Laterality Date CYSTOSCOPY W/ LASER LITHOTRIPSY Left Cysto, left Ureteroscopic laser lithotripsy, left ureteral stent removal.Mili URETEROSCOPY Left 09/27/2023 Cytoscopy, left ureteral stent removal , left flexible ureteroscopic laser lithotripsy. Mili [3] No family history on file. [4] Allergies Allergen Reactions Ertapenem Patient tolerated July 2022 Tolerated meropenem August 2023 Cosigned by Brenda Beasley MD at 10/10/2024 3:52 PM EDT Images from the original note were not included. Pharmacy Managed Vancomycin Dosing Service Consult Note Consult Date: 10/09/24 Patient Name: Salazar Coyle Allergies: Ertapenem Age: 74 y.o. Sex: female Estimated body mass index is 57.01 kg/m as calculated from the following: Height as of 11/26/23: 1.651 m (5' 5"). Weight as of 11/24/23: 155 kg (342 lb 9.6 oz). Lab Results Component Value Date CREATININE 1.15 (H) 10/09/2024 CREATININE 1.12 (H) 03/27/2024 BUN 29 (H) 10/09/2024 BUN 26 (H) 03/27/2024 WBC 7.6 10/09/2024 WBC 5.0 03/27/2024 CRCLEARANCE 17.8 (L) 04/08/2021 Calculated CrCl: 101.7 mL/min Consulted By: Dr. Bruno Infectious Diagnosis: sepsis (AUC Goal 400-600 mg/L*hr) Antimicrobials: Patient recently received an antibiotic (last 12 hours) Date/Time Action Medication Dose Rate 10/09/24 210 New Bag vancomycin IVPB 1500 mg in 250 mL NS (premix) 1,500 mg 125 mL/hr 10/09/24 181 New Bag piperacillin-tazobactam (Zosyn) 4,500 mg in sodium chloride 0.9 % 100 mL IVPB Mini-Bag Plus 4,500 mg 200 mL/hr Assessment/Plan: Doses, serum creatinine, and vancomycin levels interfaced automatically to [employer] and data has been analyzed and interpreted. Start Vancomycin 1250 mg Q 24 hours based on patient age, weight, renal function, and infectious diagnosis (8.1 mg/kg). Predicted AUC = 516 mg/L*hr (goal 400-600 mg/L*hr) Will assess level on 10-10 and adjust as appropriate. Trend serum creatinine. Orders placed. Thank you for this consult. Please secure text or call with questions. DATE: 10/09/24 TIME: 9:49 PM Giovani Arreola [facility] Clinical Pharmacist Available via Secure Chat documented in this encounter [facility] 10-11-2024 Note Problem: Potential f or Falls Goal: I will remain free of falls Outcome: Progressing Problem: Problem Interventions Goal: Promote nutritional intake Outcome: Progressing [facility] 10-10-2024 Note Referral placed to alyssa rascon back to [facility] via [facility] per TCC request. Await review and response regarding ability to accept. TCC notified. [facility] 10-10-2024 Note Referral placed to [facility] via [facility] per TCC request. Await review and response regarding ability to accept. TCC notified. [facility] 10-09-2024 Note [facility] 10-09-2024 Procedure note Associated Ord er(s): Central Line Insertion Post-Procedure Diagnose(s): Sepsis (HCC) Central Line Insertion Date/Time: 10/09/2024 10:37 PM Performed by: ZINA Caba CNP Authorized by: ZINA Caba CNP Consent: The indications, risks, benefits, alternatives to the procedure were explained to the patient/surrogate decision maker and their questions answered. Consent was obtained to proceed with the procedure. Timeout: Completed immediately prior to the start of the procedure which included verification of the correct patient, correct site and agreement on the procedure to be done. Indication: Lack of adequate PIV access Anesthetic: Local anesthetic used: lidocaine without epinephrine Procedure Details: Preparation: skin prepped with chlorhexidine Skin prep agent dried: skin prep agent completely dried prior to procedure Sterile barriers: all five maximum sterile barriers used - cap, mask, sterile gown, sterile gloves, and large sterile sheet Hand hygiene: hand hygiene performed prior to central venous catheter insertion Sterile technique: Sterile technique maintained throughout procedure. Central Line Type: central venous catheter Orientation: right Location details: internal jugular Patient position: flat Catheter type: triple lumen Catheter size: 7 Fr Pre-procedure: landmarks identified Number of attempts: 1 Ultrasound guidance: yes Post-Procedure: Post-procedure: line sutured and antimicrobial dressing applied Description/Findings: dark, non-pulsatile blood return obtained from all lumens Estimated blood loss: none Complications: No apparent complications Follow-up chest x-ray: completed, line in appropriate position Assistants & Supervision: I personally performed the procedure documented as signed by this procedure note Steno Pool Supervisor(s): N/A No supervision required Cosigned by Cristino Bruno DO at 10/10/2024 10:02 AM EDT documented in this encounter [facility] 10-09-2024 Emergency department Note Per ICU, pt to go to CT before coming up. CT called. CT unsure when pt would be next. Report called. Per Dr Mercedes, start antibiotics. ICU aware pt still needs blood cx. Multiple attempts made for IV access. Able to place 22g in right chest area and 20g ultra sound IV in R AC. PA and Dr Mercedes notified pt will need a poss central line for better access. Unable to draw blood cx at this time. EMERGENCY DEPARTMENT ENCOUNTER Pt Name: Salazar Coyle Birthdate 1950 Date of evaluation: 10/09/2024 ED Provider: Emelina Cooley PA-C CHIEF COMPLAINT Chief Complaint Patient presents with Altered Mental Status HISTORY OF PRESENT ILLNESS (Location/Symptom, Timing/Onset, Context/Setting, Quality, Duration, Modifying Factors, Severity) Note limiting factors. I wore appropriate PPE for the entirety of this encounter. HPI Salazar Coyle is a 74 y.o. female who presents to the emergency department for altered mental status from SNF. History provided by EMS stating that patient was recently diagnosed a UTI and started on antibiotics a couple days ago. No known injuries or falls. No oxygen requirement at baseline. History is significantly limited secondary to patient's mental status Nursing Notes were reviewed. Limitations to history: Altered mental status/confusion Outside historians: EMS REVIEW OF SYSTEMS Review of Systems 14 systems reviewed, positives and pertinent negatives as per HPI. All other systems were reviewed and are negative. PAST MEDICAL HISTORY Medical History[1] SURGICAL HISTORY Surgical History[2] CURRENT MEDICATIONS Previous Medications ACETAMINOPHEN (TYLENOL) 325 MG TABLET Take 325 mg by mouth 3 times daily. AMMONIUM LACTATE (LAC-HYDRIN) 12 % LOTION Apply topically as needed for dry skin. APIXABAN (ELIQUIS) 5 MG TABLET Take 5 mg by mouth 2 times daily. ASCORBIC ACID (VITAMIN C) 250 MG TABLET Take 250 mg by mouth daily. ATORVASTATIN (LIPITOR) 20 MG TABLET Take 20 mg by mouth daily. BACLOFEN (LIORESAL) 5 MG TABLET Take 1 tablet by mouth 3 times daily. BUMETANIDE (BUMEX) 1 MG TABLET Take 1 tablet (1 mg) by mouth in the morning and 1 tablet (1 mg) in the evening. CALCIUM CARBONATE-VITAMIN D (OYSTER SHELL CALCIUM/D) 500-5 MG-MCG TABLET Take 1 tablet by mouth daily. DICLOFENAC SODIUM (VOLTAREN) 1 % GEL Apply 4 g topically 2 times daily. DONEPEZIL (ARICEPT) 10 MG TABLET Take 10 mg by mouth Nightly. GABAPENTIN (NEURONTIN) 100 MG CAPSULE Take 3 capsules (300 mg) by mouth 3 times daily. INSULIN GLARGINE (LANTUS) 100 UNIT/ML INJECTION Inject 30 Units under the skin Nightly. INSULIN LISPRO (HUMALOG) 100 UNIT/ML SOLUTION INJECTION Inject 5 Units under the skin in the morning and 5 Units at noon and 5 Units in the evening. Inject with meals. MELATONIN 3 MG TABLET Take 2 tablets (6 mg) by mouth Nightly. MICONAZOLE (MICOTIN) 2 % POWDER Apply topically 2 times daily. MICONAZOLE (MICOTIN) 2 % POWDER Apply topically as needed for itching. NYSTATIN (MYCOSTATIN) 768668 UNIT/GM POWDER OXYCODONE (OXY-IR) 5 MG IMMEDIATE RELEASE CAPSULE Take 1 capsule (5 mg) by mouth every 6 hours as needed for severe pain (7-10). SENNA-DOCUSATE (HELENA-COLACE) 8.6-50 MG TABLET Take 100 tablets by mouth Every 24 hours. ALLERGIES Ertapenem FAMILY HISTORY Family History[3] SOCIAL HISTORY Social History[4] SCREENINGS PHYSICAL EXAM ED Triage Vitals [10/09/24 1430] Temp Heart Rate Resp BP -- 72 20 (!) 115/90 SpO2 Temp Source Heart Rate Source Patient Position (!) 87 % Oral Monitor -- BP Location FiO2 (%) -- -- Physical Exam Vitals and nursing note reviewed. Constitutional: General: She is in acute distress. Appearance: She is well-developed. She is obese. She is ill-appearing and toxic-appearing. Comments: Diaphoretic and unkept. 74-year-old female, resting in the bed with eyes closed, groaning, appears very uncomfortable. HENT: Head: Normocephalic and atraumatic. Eyes: Conjunctiva/sclera: Conjunctivae normal. Cardiovascular: Rate and Rhythm: Normal rate and regular rhythm. Pulses: Normal pulses. Heart sounds: No murmur heard. Pulmonary: Effort: Pulmonary effort is normal. No respiratory distress. Breath sounds: Normal breath sounds. Abdominal: Palpations: Abdomen is soft. Tenderness: There is no abdominal tenderness. Musculoskeletal: General: No swelling. Cervical back: Neck supple. Skin: General: Skin is warm and dry. Capillary Refill: Capillary refill takes less than 2 seconds. Comments: Chronic skin changes to the bilateral lower extremities Neurological: Mental Status: She is alert. She is disoriented. Comments: No acute focal lateralizing deficits appreciated on exam however exam is limited secondary to patient's lethargy Psychiatric: Mood and Affect: Mood normal. DIAGNOSTIC RESULTS RADIOLOGY (Per Emergency Physician): Interpretation per the Radiologist below, if available at the time of this note: CT head wo IV contrast Final Result 1. Small, hyperdense focus in the left anteroinferior paramedian occipital region may represent small hemorrhagic contusion or possibly extra-axial blood versus vascular anomaly, new in the interval. Focal parenchymal mineralization or atypical meningioma less likely. Exact etiology uncertain and follow-up suggested. 2. No other, acute intracranial findings. 3. Probable chronic ischemic and atrophic changes. 4. Left paranasal sinus disease. Critical Test Results: Results were discussed with Dr. Mercedes in the ED on September, at 1632 hours. Report Dictated on Electronically Signed By: Sy Akins MD Electronically Signed Date/Time: 10/09/2024 4:33 PM EDT XR chest 1 view Final Result No acute cardiopulmonary process. Report Dictated on Electronically Signed By: Julio Cesar Madison MD Electronically Signed Date/Time: 10/09/2024 4:16 PM EDT LABS: Labs Reviewed CBC WITH AUTO DIFFERENTIAL - Abnormal Result Value Auto WBC 7.6 RBC 4.06 Hemoglobin 12.9 Hematocrit 40.4 MCV 99.5 (*) MCH 31.8 MCHC 31.9 RDW 14.6 Platelets 192 MPV 11.7 nRBC 0.0 Neutrophils Relative 79.6 Lymphocytes Relative 13.0 (*) Monocytes Relative 6.4 Eosinophils Relative 0.3 Basophils Relative 0.3 Immature Grans % 0.4 Neutrophils Absolute 6.0 Lymphocytes Absolute 1.0 Monocytes Absolute 0.5 Eosinophils Absolute 0.0 Basophils Absolute 0.0 Immature Grans Absolute 0.0 COMPREHENSIVE METABOLIC PANEL - Abnormal SODIUM 144 POTASSIUM 4.2 CHLORIDE 103 CARBON DIOXIDE 27 ANION GAP 14 (*) UREA NITROGEN 29 (*) CREATININE 1.15 (*) GLUCOSE 291 (*) CALCIUM 8.7 (*) AST (SGOT) 21 ALT <6 ALKALINE PHOSPHATASE 86 ALBUMIN 2.8 (*) BILIRUBIN, TOTAL 0.7 TOTAL PROTEIN 6.7 eGFR 49.5 (*) BLOOD GAS, VENOUS - Abnormal pH, Venous 7.278 (*) pCO2, Venous 65.3 (*) pO2, Venous 32.6 HCO3, Venous 29.9 O2 Sat, Venous 58.1 Base Excess, Venous 1.4 Hgb, blood gas 13.9 TCO2, Venous 31.9 (*) Source Of Oxygen Nasal Cannula (LPM) Amount Of Oxygen Narrative: Assessment of oxygenation is best done with an arterial blood gas determination. Reference ranges for pO2, bicarbonate, and base excess are for mixed venous blood. Specimens drawn from a peripheral vein will often have higher values. HIGH SENSITIVITY TROPONIN, SERIAL BASELINE - Abnormal Troponin HS Serial Baseline 18 (*) POCT GLUCOSE METER UNSOLICITED RESULTS - Abnormal Glucose 266 (*) Narrative: Performed by: Bentley Serna, [address] [place] [address] [place] [address] CLIA ID: [id number] AMMONIA - Normal AMMONIA 22 NT PRO BNP - Normal NT PRO BNP 427 BLOOD CULTURE BLOOD CULTURE COMPLETE URINALYSIS WITH REFLEX TO CULTURE HIGH SENSITIVITY TROPONIN, SERIAL, SECOND TEST All other labs were within normal range or not returned as of this dictation. EMERGENCY DEPARTMENT COURSE and DIFFERENTIAL DIAGNOSIS/MDM: Vitals: Vitals: 10/09/24 1439 10/09/24 1528 10/09/24 1700 10/09/24 1715 BP: 125/80 Pulse: 78 79 Resp: 16 13 Temp: (!) 38.3 C (101 F) TempSrc: Oral SpO2: (!) 87% 100% 100% Medications sodium chloride 0.9 % bolus 1,000 mL (1,000 mL IntraVENous New Bag 10/09/24 1702) vancomycin IVPB 1500 mg in 250 mL NS (premix) (has no administration in time range) piperacillin-tazobactam (Zosyn) 4,500 mg in sodium chloride 0.9 % 100 mL IVPB Mini-Bag Plus (has no administration in time range) acetaminophen (Tylenol) suppository 650 mg (650 mg Rectal Given 10/09/24 1731) ED care was supervised by Dr. Mercedes who independently examined and evaluated the patient. Please see their attestation note for further details. In brief, Salazar Coyle is a 74 y.o. female who presented to the emergency department for altered mental status/confusion. See history and physical exam for the details. Presents to the ED febrile at 101 F, normotensive, heart rate is stable at 78 bpm, no tachypnea, hypoxic at 87 bpm, no oxygen requirement at baseline but did require supplemental nasal cannula oxygen here. When family arrived to the ED they note that they had spoke to her yesterday and she was acting appropriately. Her baseline mental status is A&O x 4. She has no oxygen requirement at baseline. They noted that she was recently started on UTI medications. Otherwise, they state that she has been doing okay at her nursing facility, than that she has been there for a couple years now. Nursing notes and medical records reviewed. Differential considerations included sepsis versus cystitis versus obstruction versus acute intracranial abnormality versus pneumonia versus viral illness Initial medical management includes IV fluids, Tylenol suppository, vancomycin and Zosyn Initial workup includes CBC, CMP, troponin, ammonia level, BNP, VBG, troponin, UA, EKG, CT head without IV contrast, chest x-ray Nursing staff was able to obtain labs however multiple attempts were made for IV access with minimal success, they were able to place a 22-gauge in the right chest area and 22-gauge ultrasound IV in the right AC. Blood cultures were unable to be drawn at that time secondary to poor IV access. Lab workup results CBC shows no leukocytosis or anemia. CMP shows no significant electrolyte derangement, anion gap of 14, creatinine is 1.1, no transaminitis. Ammonia level within normal notes. Troponin is 18. See Epiphany for EKG interpretation by attending. BNP within the limits. VBG shows acidosis of 7.278. Imaging results per radiology chest x-ray shows no acute cardiopulmonary process. CT head shows: 1. Small, hyperdense focus in the left anteroinferior paramedian occipital region may represent small hemorrhagic contusion or possibly extra-axial blood versus vascular anomaly, new in the interval. Focal parenchymal mineralization or atypical meningioma less likely. Exact etiology uncertain and follow-up suggested. 2. No other, acute intracranial findings. 3. Probable chronic ischemic and atrophic changes. 4. Left paranasal sinus disease. Critical Test Results: Results were discussed with Dr. Mercedes in the ED on September, at [address] Mercedes had consulted neurosurgery Dr. Harmon who recommended repeat CT head in 6 hours. MRI brain with/without contrast and CTA head and neck. SBP less than 140. Patient will require ICU level care, I consulted the ICU who will come down and evaluate the patient here in the ED. Please refer to their documentation for the details. Critical care: 42 minutes I Emelina Cooley PA-C am the wool tamper of record. PROCEDURES: Unless otherwise noted below, none Procedures FINAL IMPRESSION No diagnosis found. DISPOSITION Admit 10/09/2024 04:48:01 PM PATIENT REFERRED TO: No follow-up provider specified. DISCHARGE MEDICATIONS: New Prescriptions No medications on file (Comment: Please note this report has been produced using speech recognition software and may contain errors related to that system including errors in grammar, punctuation, and spelling, as well as words and phrases that may be inappropriate. If there are any questions or concerns please feel free to contact the dictating provider for clarification.) Emelina Cooley PA-C (electronically signed) Emergency Medicine Provider [1] Past Medical History: Diagnosis Date A-fib (CMS/HCC) (HCC) Anemia Diabetes (HCC) Lymphedema Obesity [2] Past Surgical History: Procedure Laterality Date CYSTOSCOPY W/ LASER LITHOTRIPSY Left Cysto, left Ureteroscopic laser lithotripsy, left ureteral stent removal.Mili URETEROSCOPY Left 09/27/2023 Cytoscopy, left ureteral stent removal , left flexible ureteroscopic laser lithotripsy. Mili [3] No family history on file. [4] Social History Socioeconomic History Marital status: Tobacco Use Smoking status: Never Smokeless tobacco: Never Vaping Use Vaping status: Never Used Substance and Sexual Activity Alcohol use: Never Drug use: Never Sexual activity: Not Currently Social Drivers of Health Intimate Partner Violence: Not At Risk (01/08/2023) Humiliation, Afraid, Rape, and Kick questionnaire Fear of Current or Ex-Partner: No Emotionally Abused: No Physically Abused: No Sexually Abused: No Emelina Cooley PA-C [id number]/09/[id number] Cosigned by Sravan Mercedes MD at 10/09/2024 6:04 PM EDT Emergency Department Encounter [facility] ED Patient: Salazar Coyle : 1950 Date of Evaluation: 10/09/2024 ED Supervising Physician: Sravan Mercedes MD I personally saw Salazar Coyle and made/approved the management plan and take responsibility for the patient management. In brief, Salazar Coyle is a 74 y.o. that presents to the emergency department for evaluation of altered mental status and acute febrile illness. Patient talked to family last evening on the phone and seemed to be normal and saw her yesterday afternoon and she was normal but then today tried to call and she did not answer. Nursing staff at the facility then noted that she had decreased responsiveness and sent the patient in for evaluation. Patient himself unable to provide history. Patient has been altered in the past when she has had infections. Patient is currently being treated for a urinary tract infection. Focused exam: General appearance: Ill-appearing psych: Drowsy arouses to verbal dry mouth attempted to speak but incomprehensible. Skin: Warm and dry chronic wounds venous stasis bilateral lower extremities. Neck: Supple. Cardiovascular: Regular rate and rhythm. Lungs: Diminished distant breath sounds clear to auscultation bilaterally, no accessory muscle use, tachypnea, or retractions. Abdomen: Obese soft, nontender, and nondistended, no rebound, rigidity, or guarding, positive bowel sounds 4 quadrants. Extremities: Warm and well perfused. Unable to lift legs up off of the bed. Will lift arms at times. HEENT: Mucous membranes are very dry Brief ED course/MDM: Patient presents the emergency department for evaluation. Patient is hemodynamically stable but febrile. Concern for possible urinary tract infection source of the altered mental status and encephalopathy. Patient placed on nasal cannula for hypoxia. Patient taken to a CT scan of the head. I discussed with the radiologist as well as stroke neurologist Dr. Harmon after the report from the radiologist of possible intracranial hemorrhage. Dr. Harmon recommended ICU admission with blood pressures less than [address] scan and MRI. Consulted ICU in regards to concerns for sepsis as well as a possible intracranial hemorrhage. Patient has 2 IVs but they were unable to obtain blood cultures from these IVs. I personally discussed the patient's management with other clinicians: Ball Holder Dr. Harmon and radiologist as above Total critical care time today provided was at least 32 minutes. This excludes seperately billable procedure. Critical care time provided for sepsis, concern for possible acute intracranial hemorrhage, that required close evaluation and/or intervention with concern for patient decompensation. EMERGENCY DEPARTMENT COURSE and DIFFERENTIAL DIAGNOSIS/MDM: Vitals: Vitals: 10/09/24 1430 10/09/24 1439 10/09/24 1528 10/09/24 1700 BP: (!) 115/90 125/80 Pulse: 72 78 Resp: 20 16 Temp: (!) 38.3 C (101 F) TempSrc: Oral Oral SpO2: (!) 87% (!) 87% 100% All diagnostic, treatment, and disposition decisions were made by myself in conjunction with the LEONIDAS/Resident. I also supervised arias portions of any procedures performed by the LEONIDAS/Resident. For all further details of the patient's emergency department visit, please see their documentation. This will serve as my supervisory note and shared attestation. I did perform a substantiative portion of the visit including all aspects of the medical decision making. (Please note that portions of this note may have been completed with a voice recognition program. Efforts were made to edit the dictations but occasionally words are mis-transcribed.) Sravan Mercedes MD [employer] Sravan Mercedes MD 10/09/24 1718 Pt here to the ER via EMS for altered metal status that started today. Pt has hx of dementia. Pt not answering questions. Pt is moaning and tense. Pt looks at you when calling her name. Per EMS pt was started on antibiotic for UTI. documented in this encounter [facility] 10-09-2024 Note [facility] 10-09-2024 History and physical note Images from the original note were not included. Internal Medicine: MICU Initial History and Physical Name: Salazar Coyle : 1950(74 y.o.) Date: 10/09/24 Attending: Dr. Bruno Subjective: Chief Complaint: altered mental status HPI: 74-year-old female with multiple medical comorbidities including dementia, chronic UTI, history of stroke, chronic Jose, recurrent sepsis, multiple hospitalization October and December recently, follows with urology, A-fib on Eliquis, neurologic bladder with Jose, CKD stage III, obstructive sleep apnea, history of vascularRight lower extremity abnormalities, status post history of multiple toe amputations, and significant diabetes, history of E. coli bacteremia, who presents from a nursing facility. Family reports change in mental status. At bedside is patient's son daughter and . Report daughter is the POA. At baseline patient is bedbound, only able to move right upper extremity to command slightly, chronic venous stasis ulcerations, morbid obesity, multiple abnormalities and deformities in the lower extremities. BMI elevated,. On examination, patient appears extremely dehydrated, states mucous membranes with thick indurated mucus in the posterior pharynx, appears excessively dehydrated. Lungs diminished, when patient fell asleep she desaturated to 70% with evidence of apnea, she appears mildly febrile. Somnolent, family reports this is not baseline her baseline, she reports mild abdominal tenderness to palpation especially deflates, consider history, will proceed with additional scanning. Family also reports recently treated with outpatient biotics for urinary tract infection. He is currently being treated for fungal infection, on her neck. Per POA, full code at this time, noted prior DNR paperwork, ongoing discussion, palliative care evaluation. Labs reviewed, glucose elevated, gas with CO2 retention with compensated respiratory hypercapnia acidosis, hemoglobin 12.9, preserved no thrombocytopenia. Ammonia normal, creatinine elevated at baseline of 0.7, anion gap evaluation, will check lactic acid, troponin mild elevated BNP within normal limits, CT scan of the head small focus of left anterior inferior paramedial subpleural region, Medical History[1] Surgical History[2] Family History[3] Social History Socioeconomic History Marital status: Spouse name: Not on file Number of children: Not on file Years of education: Not on file Highest education level: Not on file Occupational History Not on file Tobacco Use Smoking status: Never Smokeless tobacco: Never Vaping Use Vaping status: Never Used Substance and Sexual Activity Alcohol use: Never Drug use: Never Sexual activity: Not Currently Other Topics Concern Not on file Social History Narrative Not on file Social Drivers of Health Financial Resource Strain: Not on file Food Insecurity: Not on file Transportation Needs: Not on file Physical Activity: Not on file Stress: Not on file Social Connections: Not on file Intimate Partner Violence: Not At Risk (01/08/2023) Humiliation, Afraid, Rape, and Kick questionnaire Fear of Current or Ex-Partner: No Emotionally Abused: No Physically Abused: No Sexually Abused: No Housing Stability: Not on file Allergies[4] Prior to Admission medications Medication Sig Start Date End Date Taking? Authorizing Provider acetaminophen (Tylenol) 325 MG tablet Take 325 mg by mouth 3 times daily. Historical Provider, ammonium lactate (Lac-Hydrin) 12 % lotion Apply topically as needed for dry skin. 11/29/23 Raphael Irwin, apixaban (Eliquis) 5 MG tablet Take 5 mg by mouth 2 times daily. Historical Provider, ascorbic acid (Vitamin C) 250 MG tablet Take 250 mg by mouth daily. Historical Provider, atorvastatin (Lipitor) 20 MG tablet Take 20 mg by mouth daily. Historical Provider, baclofen (Lioresal) 5 MG tablet Take 1 tablet by mouth 3 times daily. 04/14/21 Historical Provider, bumetanide (Bumex) 1 MG tablet Take 1 tablet (1 mg) by mouth in the morning and 1 tablet (1 mg) in the evening. 08/09/23 11/07/23 Paige Rivera DO Calcium Carbonate-Vitamin D (Oyster Shell Calcium/D) 500-5 MG-MCG tablet Take 1 tablet by mouth daily. Historical Provider, Diclofenac Sodium (Voltaren) 1 % gel Apply 4 g topically 2 times daily. 01/11/23 Paige Rivera DO donepezil (Aricept) 10 MG tablet Take 10 mg by mouth Nightly. Historical Provider, gabapentin (Neurontin) 100 MG capsule Take 3 capsules (300 mg) by mouth 3 times daily. 08/09/23 10/08/23 Paige Rivera DO insulin glargine (Lantus) 100 UNIT/ML injection Inject 30 Units under the skin Nightly. 08/09/23 01/03/24 Paige Rivera DO Insulin Lispro (Humalog) 100 UNIT/ML solution injection Inject 5 Units under the skin in the morning and 5 Units at noon and 5 Units in the evening. Inject with meals. 08/09/23 08/08/24 Paige Rivera DO melatonin 3 MG tablet Take 2 tablets (6 mg) by mouth Nightly. 11/29/23 Raphael Irwin DO miconazole (Micotin) 2 % powder Apply topically 2 times daily. 11/29/23 Raphael Irwin DO miconazole (Micotin) 2 % powder Apply topically as needed for itching. 11/29/23 Raphael Irwin DO nystatin (Mycostatin) [id number] UNIT/GM powder 03/22/22 Historical Provider, oxyCODONE (Oxy-IR) 5 MG immediate release capsule Take 1 capsule (5 mg) by mouth every 6 hours as needed for severe pain (7-10). 11/29/23 Raphael Irwin DO senna-docusate (Helena-Colace) 8.6-50 MG tablet Take 100 tablets by mouth Every 24 hours. 04/06/21 Historical Provider, Objective: Oxygen Delivery: O2 Flow Rate (L/min): 3 L/min VITALS: BP 125/80 Pulse 79 Temp (!) 38.3 C (101 F) (Oral) Resp 13 SpO2 100% CURRENT PULSE OXIMETRY: SpO2: 100 % Review of Systems Unable to perform ROS: Mental status change Physical Exam Constitutional: Appearance: She is obese. She is ill-appearing. Comments: Awakens to verbal command, however falls asleep again with apnea, no distress, no work of breathing. Mucus membranes in mouth with thick mucus stretching out in a ''chewing gum'' consistency. Extremely dehydrated. Neck with erythema and antifungal powder. Lungs diminished, abodmen obese and mild suprapubic and flank tenderness. Extremities not mottled. Limited mobility/weakness reported chronic, LE with chronic venous stasis ulcerations. Right LE missing several digits . Chronic skin changes, no tenderness to palpation. HENT: Head: Normocephalic. Nose: Congestion present. Mouth/Throat: Mouth: Mucous membranes are dry. Pharynx: Oropharyngeal exudate and posterior oropharyngeal erythema present. Cardiovascular: Rate and Rhythm: Normal rate. Pulmonary: Effort: Pulmonary effort is normal. Breath sounds: Rhonchi present. Abdominal: General: Abdomen is flat. Tenderness: There is abdominal tenderness. Musculoskeletal: General: Swelling and deformity present. Normal range of motion. Skin: Findings: Erythema, lesion and rash present. Neurological: Mental Status: She is disoriented. Motor: Weakness present. Select Labs within last 24 hours- BMP: Recent Labs 10/09/24 1524 NA 144 K 4.2 CL 103 CO2 27 BUN 29* CREATININE 1.15* CALCIUM 8.7* LFTs: Recent Labs 10/09/24 1524 AST 21 ALT <6 PROT 6.7 ALBUMIN 2.8* BILITOT 0.7 ALKPHOS 86 Glucose: Recent Labs 10/09/24 1437 10/09/24 1524 GLUCOSE -- 291* POCGLU 266* -- Procal: No results for input(s): "PROCAL" in the last 72 hours. CBC: Recent Labs 10/09/24 1524 WBC 7.6 HGB 13.9 12.9 HCT 40.4 PLT 192 MCV 99.5* RDW 14.6 ABGs: Recent Labs 10/09/24 1524 [id number] Nasal Cannula (LPM) Lactic Acid: No results for input(s): "LACTATE" in the last 72 hours. INR: No results for input(s): "INR" in the last 72 hours. Cardiac Injury Profile: No results for input(s): "CKTOTAL", "CKMB", "TROPONINI" in the last 72 hours. Labs in Last 3 months: Lab Results Component Value Date TSH 1.649 11/22/2023 INR 1.1 08/02/2023 Microbiology- Urine Cx: Lab Results Component Value Date URINECX >100,000 CFU/mL Escherichia coli (A) 11/22/2023 URINECX >100,000 CFU/mL Providencia stuartii (A) 11/22/2023 Blood Cx: Lab Results Component Value Date BLOODCX No growth at 5 days 11/24/2023 BLOODCX No growth at 5 days 11/24/2023 Sputum Cx: Lab Results Component Value Date RESPCULT No growth of normal respiratory gaby. 08/01/2023 Gram Stain: Lab Results Component Value Date LABGRAM 08/01/2023 Few Polymorphonuclear leukocytes per low power field LABGRAM Few Epithelial cells per low power field 08/01/2023 LABGRAM No organisms seen 08/01/2023 PNA PCR: Lab Results Component Value Date HUMANMETAPNE Not Detected 08/01/2023 COVID19: No results found for: COVID19 Legionella Ag: Lab Results Component Value Date LEGIONELLAPN Not Detected 08/01/2023 Strep Ag: No results for input(s): "STREPPNEUMO" in the last 72 hours. Imaging- abnormal ct head . Cxr reviewed and interpreted independently. Ordered CT c/a/pelvis and RLE and prior vascular /necrosis with amputation hx . Assessment and Plan: Principal Problem: Sepsis (HCC) Assessment: Plan: Sepsis without shock, pending LA, additional IVF, initiation of abx broad spectrum . Prior cultures reviewed/ sensitivities. Vanco/zosyn at this time. Blood cultures follow up. Encephalopathy, hypovolemic, septic . Co2 retention, renal failure. Awakens to verbal stimuli . Will admit to icu and trial NIV with backup rate Hx of ureteral calculi with stent- mild flank tenderness, will obtain CT abd/pelvis for further eval Acute on chronic hypercapnic hypoxic respiratory failure , o2 fio2 titration. Atelectasis, apnea, . NIV initiation with backup rate Iddm, continued basal bolus and ssi with dose reduction for whitley Nstemi, demand ischemia Whitley on ckd . Liekly pre renal Afib hx , rate controlled, on ac continued Neurogenic bladder, chronic jose, urology follow up Dementia, hx of CVA, functional status, baseline bed bound Hx of prior recurrent septic shock and bacteremia with hx of respiratory failru requiring intubation Failure to thrive - palliative loli. Per poa, full code. Goals of care. Complicated chronic uti, chronic jose, empiric broad spectrum abx. High complexity, multipel comorbidities, elevated risk of progression to septic shock and respiratory failure GI Prophylaxis: Pantoprazole IV DVT Prophylaxis: Full anticoagulation BMI Classification: There is no height or weight on file to calculate BMI. morbid obesity BMI 40 or > Disposition: Remain in ICU Status Critical Care Time: 60 Total critical care time caring for this patient with life threatening, unstable organ failure, including direct patient contact, management of life support systems, review of data including imaging and labs, discussions with other team members and physicians, excluding procedures. [1] Past Medical History: Diagnosis Date A-fib (CMS/HCC) (HCC) Anemia Diabetes (HCC) Lymphedema Obesity [2] Past Surgical History: Procedure Laterality Date CYSTOSCOPY W/ LASER LITHOTRIPSY Left Cysto, left Ureteroscopic laser lithotripsy, left ureteral stent removal.Mili URETEROSCOPY Left 09/27/2023 Cytoscopy, left ureteral stent removal , left flexible ureteroscopic laser lithotripsy. Mili [3] No family history on file. [4] Allergies Allergen Reactions Ertapenem Patient tolerated July 2022 Tolerated meropenem August 2023 documented in this encounter [facility] 02-25-2024 History of Present illness Narrative Images from the original note were not included. Bashir Vásquez MD 02/24/2024 at 10:55 AM Telemedicine visit PATIENT NAME: Salazar Coyle DATE OF : 1950 TODAY'S DATE: 02/24/2024 CHIEF COMPLAINT The patient, Ms. Coyle is a 73 y.o. female. 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 Coyle is a 73 y.o. female who presents for telehealth visit - post op visit-01/03/24 Cysto, left flexible Ureteroscopic laser lithotripsy, left ureteral stent removal 11/25/23 VERY difficult , left ureteral stent. Multilength. ( Body habitus, inability to bend right leg) Schedule cystoscopy, left ureteroscopic laser lithotripsy, left ureteral stent change in 2-3 weeks at [facility]. 11/24/23 CT Kidneys and ureters: Calculus is noted at the level of the left UPJ measuring approximately 0.7 x 0.9 cm nonobstructive calculus is also noted within the left kidney measuring approximately 0.5 x 0.9 cm. Review of Systems: Review of Systems Physical Exam Constitutional: General: Patient is awake. Appearance: Normal appearance. Patient is well-developed. HENT: Head: Normocephalic and atraumatic. Eyes: General: Lids are normal. Vision grossly intact. Right eye: No discharge. Left eye: No discharge. Neck: Musculoskeletal: Normal range of motion and neck supple. Neurological: Mental Status: Patient is alert and oriented to person, place, and time. Mental status is at baseline. Cranial Nerves: Cranial nerves are intact. Skin: Coloration: Skin is not jaundiced or pale. Findings: No abrasion or acne. Psychiatric: Attention and Perception: Attention and perception normal. Mood and Affect: Mood normal. Speech: Speech normal. Behavior: Behavior normal. Behavior is cooperative. Thought Content: Thought content normal. Cognition and Memory: Cognition normal. Judgment: Judgment normal. Past Medical History: @[facility]@ Past Surgical History: @[facility]@ Medications Prior to Admission medications Medication Sig Start Date End Date Taking? Authorizing Provider acetaminophen (Tylenol) 325 MG tablet Take 325 mg by mouth 3 times daily. Historical Provider, ammonium lactate (Lac-Hydrin) 12 % lotion Apply topically as needed for dry skin. 11/29/23 Raphael Irwin, apixaban (Eliquis) 5 MG tablet Take 5 mg by mouth 2 times daily. Historical Provider, ascorbic acid (Vitamin C) 250 MG tablet Take 250 mg by mouth daily. Historical Provider, atorvastatin (Lipitor) 20 MG tablet Take 20 mg by mouth daily. Historical Provider, baclofen (Lioresal) 5 MG tablet Take 1 tablet by mouth 3 times daily. 04/14/21 Historical Provider, bumetanide (Bumex) 1 MG tablet Take 1 tablet (1 mg) by mouth in the morning and 1 tablet (1 mg) in the evening. 08/09/23 11/07/23 Paige Rivera DO Calcium Carbonate-Vitamin D (Oyster Shell Calcium/D) 500-5 MG-MCG tablet Take 1 tablet by mouth daily. Historical Provider, Diclofenac Sodium (Voltaren) 1 % gel Apply 4 g topically 2 times daily. 01/11/23 Paige Rivera DO donepezil (Aricept) 10 MG tablet Take 10 mg by mouth Nightly. Historical Provider, gabapentin (Neurontin) 100 MG capsule Take 3 capsules (300 mg) by mouth 3 times daily. 08/09/23 10/08/23 Paige Rivera DO insulin glargine (Lantus) 100 UNIT/ML injection Inject 30 Units under the skin Nightly. 08/09/23 01/03/24 Paige Rivera DO Insulin Lispro (Humalog) 100 UNIT/ML solution injection Inject 5 Units under the skin in the morning and 5 Units at noon and 5 Units in the evening. Inject with meals. 08/09/23 08/08/24 Paige Rivera DO melatonin 3 MG tablet Take 2 tablets (6 mg) by mouth Nightly. 11/29/23 Raphael Irwin DO miconazole (Micotin) 2 % powder Apply topically 2 times daily. 11/29/23 Raphael Irwin DO miconazole (Micotin) 2 % powder Apply topically as needed for itching. 11/29/23 Raphael Irwin DO nystatin (Mycostatin) 619265 UNIT/GM powder 03/22/22 Historical Provider, oxyCODONE (Oxy-IR) 5 MG immediate release capsule Take 1 capsule (5 mg) by mouth every 6 hours as needed for severe pain (7-10). 11/29/23 Raphael Irwin DO senna-docusate (Helena-Colace) 8.6-50 MG tablet Take 100 tablets by mouth Every 24 hours. 1/5/22 Historical Provider, Labs: No results found for: "PSAFREE", PSAFREEPCT No results for input(s): "PSAFREE", "PSAFREEPCT" in the last 72 hours. No results found for: "TESTOSTERONE" Lab Results Component Value Date WBC 5.1 11/29/2023 HGB 10.1 (L) 11/29/2023 HCT 32.2 (L) 11/29/2023 MCV 98.5 11/29/2023 PLT 152 11/29/2023 Lab Results Component Value Date GLUCOSE 206 (H) 11/29/2023 CALCIUM 8.0 (L) 11/29/2023 NA 136 11/29/2023 K 3.8 11/29/2023 CO2 27 11/29/2023 CL 108 (H) 11/29/2023 BUN 20 (H) 11/29/2023 CREATININE 0.76 11/29/2023 No components found for: "LABURIN" Radiology Review: 01/03/24 Cysto, left flexible Ureteroscopic laser lithotripsy, left ureteral stent removal.[facility] 11/25/23 VERY difficult , left ureteral stent. Multilength. ( Body habitus, inability to bend right leg) Schedule cystoscopy, left ureteroscopic laser lithotripsy, left ureteral stent change in 2-3 weeks at [facility]. 1.5 hours. Has to be in room 14. Urine culture one week prior ( Order in) [facility] 11/24/23 CT Kidneys and ureters: Calculus is noted at the level of the left UPJ measuring approximately 0.7 x 0.9 cm nonobstructive calculus is also noted within the left kidney measuring approximately 0.5 x 0.9 cm. 11/22/23 urine cult. E coli, Providencia 09/27/23 Cytoscopy, left ureteral stent removal , left flexible ureteroscopic laser lithotripsy. ( I called Daughter, notified her of the results of there surgery- and that she will now follow up PRN) [facility] 08/22/23 Blood culture negative. 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 Additional coarse, nonobstructing left renal calculi are noted. No evidence of right-sided hydronephrosis or nephrolithiasis. A Jose catheter is present within the urinary bladder, decompressing it and limiting evaluation. 07/30/23 UA Many WBC's few bacteria 08/04/22 cysto LULL with stent change. 6 x 26 cm, tied to jose catheter 06/10/22 Cysto left stent insertion. 6 fr variable length. severe sepsis. has urethral erosion. extremely difficult stent due to inability to move right leg . By Darci Patient was seen today via Telehealth by agreement I used the following Telehealth technology: Video This patient encounter is appropriate and reasonable under the circumstances given the patient's particular presentation at this time. The patient has been advised of the potential risks and limitations of this mode of treatment (including but not limited to the absence of in-person examination) and has agreed to be treated in a remote fashion in spite of them. Any and all of the patient's/patient's family's questions on this issue have been answered and I have made no promises or guarantees to the patient. The patient has also been advised to contact this office for worsening conditions or problems, and seek emergency medical treatment and/or call 911 if the patient deems either necessary. Impression/Plan Follow Up: No follow-ups on file. The patient verbalizes understanding of the plan of care. Length of Visit: Start Call Time End Call Time Total time spent in call, chart review, care coordination, etc: ] Cont Acidic acid flushes- Doc a ECF ordered Discuss ion with Rocio ( aluminum welder) at Facility Discussed that placing Suprapubic Tube would be Very Difficult- would be na open procedure.; Not a good option. Plan ECF to cont to change jose Monthly. Follow up PRN Bashir Vásquez MD 02/24/24 10:55 AM documented in this encounter [facility] 01-03-2024 Miscellaneous Notes [facility] at the bedside to transport pt back to [facility]. This RN spoke with [employer] SOA CONSULTANT about pt's elevated Bpx2, [employer] SOA CONSULTANT advised to let pt go back to fpc and resume home medications. Report called to [facility]. PreOp Dx Left renal calculi- Two, left ureteral stent PostOp Dx Same Operation Cystoscopy, flouroscopy, left ureteral stent removal, left flexible ureteroscopic laser lithotripsy Surgeon Bashir Vásquez MD Assist Aubrie Ramos MD EBL Minimal Drains none Jose Specimen Condition To PACU This is a 73 y.o. morbidly obese patient who resides at an [facility] care facility presents with a left ureteral stent and two left renal calculi. After having a discussion on treatment options, risks and benefits, the patient wishes to proceed forward with surgical intervention Patient was brought to the operating room. A thorough time out was performed and everyone present was in agreement. Patient was placed on OR table. Anesthesia and lines were maintained by the anesthesia team. Patient was placed in the dorsal lithotomy position. Prepped and draped in usual fashion. Pressure points were padded. A cystourethroscope was inserted through the urethra and the bladder was inspected. left ureteral stent grasped, removed to the meatus. A sensor wire was advanced to the level of the kidney-through the stent. Stent then removed. A 12/14 fr ureteral access sheath was advanced over the wire under fluoroscopy. A flexible ureteroscope was passed through the access sheath. Two 4-5 mm left renal calculi were visualized and laser lithotripsied using the holmium laser. Dusted The sensor wire was removed. The bladder was emptied. 18 fr jose placed and patient awoken from anesthesia. Lunch relief at 1030 Block team paged for patient IV access Patient BS 337 this morning, anesthesia notified. documented in this encounter [facility] 01-03-2024 Note Formatting of this n ote might be different from the original. [facility] at the bedside to transport pt back to [facility]. This RN spoke with ORACLE SOA CONSULTANT about pt's elevated Bpx2, ORACLE SOA CONSULTANT advised to let pt go back to fpc and resume home medications. [facility] 01-03-2024 Note Formatting of this n ote might be different from the original. [facility] at the bedside to transport pt back to [facility]. This RN spoke with ORACLE SOA CONSULTANT about pt's elevated Bpx2, ORACLE SOA CONSULTANT advised to let pt go back to fpc and resume home medications. [facility] 01-03-2024 Note Formatting of this n ote might be different from the original. Report called to [facility]. [facility] 01-03-2024 Note Formatting of this n ote might be different from the original. Report called to [facility]. [facility] 01-03-2024 Note Formatting of this n ote might be different from the original. PreOp Dx Left renal calculi- Two, left ureteral stent PostOp Dx Same Operation Cystoscopy, flouroscopy, left ureteral stent removal, left flexible ureteroscopic laser lithotripsy Surgeon Bashir Vásquez MD Assist Aubrie Ramos MD EBL Minimal Drains none Jose Specimen Condition To PACU This is a 73 y.o. morbidly obese patient who resides at an extended care facility presents with a left ureteral stent and two left renal calculi. After having a discussion on treatment options, risks and benefits, the patient wishes to proceed forward with surgical intervention Patient was brought to the operating room. A thorough time out was performed and everyone present was in agreement. Patient was placed on OR table. Anesthesia and lines were maintained by the anesthesia team. Patient was placed in the dorsal lithotomy position. Prepped and draped in usual fashion. Pressure points were padded. A cystourethroscope was inserted through the urethra and the bladder was inspected. left ureteral stent grasped, removed to the meatus. A sensor wire was advanced to the level of the kidney-through the stent. Stent then removed. A 12/14 fr ureteral access sheath was advanced over the wire under fluoroscopy. A flexible ureteroscope was passed through the access sheath. Two 4-5 mm left renal calculi were visualized and laser lithotripsied using the holmium laser. Dusted The sensor wire was removed. The bladder was emptied. 18 fr jose placed and patient awoken from anesthesia. [facility] 01-03-2024 Note Formatting of this n ote might be different from the original. PreOp Dx Left renal calculi- Two, left ureteral stent PostOp Dx Same Operation Cystoscopy, flouroscopy, left ureteral stent removal, left flexible ureteroscopic laser lithotripsy Surgeon Bashir Vásquez MD Assist Aubrie Ramos MD EBL Minimal Drains none Jose Specimen Condition To PACU This is a 73 y.o. morbidly obese patient who resides at an extended care facility presents with a left ureteral stent and two left renal calculi. After having a discussion on treatment options, risks and benefits, the patient wishes to proceed forward with surgical intervention Patient was brought to the operating room. A thorough time out was performed and everyone present was in agreement. Patient was placed on OR table. Anesthesia and lines were maintained by the anesthesia team. Patient was placed in the dorsal lithotomy position. Prepped and draped in usual fashion. Pressure points were padded. A cystourethroscope was inserted through the urethra and the bladder was inspected. left ureteral stent grasped, removed to the meatus. A sensor wire was advanced to the level of the kidney-through the stent. Stent then removed. A 12/14 fr ureteral access sheath was advanced over the wire under fluoroscopy. A flexible ureteroscope was passed through the access sheath. Two 4-5 mm left renal calculi were visualized and laser lithotripsied using the holmium laser. Dusted The sensor wire was removed. The bladder was emptied. 18 fr jose placed and patient awoken from anesthesia. [facility] 01-03-2024 Hospital Discharge instructions Aubrie Ramos MD - 01/03/2024 11:14 AM EDT Laser Lithotripsy These are general instructions for you to follow after your surgery. Your doctor or a member of his or her staff will outline any additional or special instructions that pertain to you. What is a Laser Lithotripsy? A laser lithotripsy is a method for using lasers to remove stones that are located in the urinary tract. This could include stones in the bladder, kidneys, ureters, or urethra. A small flexible camera called a ureteroscope is inserted into the urethra and up the ureter until it reaches the location of the kidney stone. The doctor can then use a laser to break up a kidney stone and a small basket to remove small stones or stone fragments. A ureteral stent is often left in place after the procedure to help with healing. What are the advantages of laser lithotripsy? Laser lithotripsy is a minimally invasive procedure, and does not involve any incisions. It has been shown to be effective no matter the size, location, and/ or hardness of the stone. It also reduces the risk of steinstrasse (where several stones fragments line up in the ureter and block urine flow). How long does surgery take? Surgery will take 1-2 hours to complete. Will I have to stay in the hospital? No. This is an outpatient procedure, so you should be able to go home the same day that the procedure is performed. Are there risks with a laser lithotripsy procedure? There are risks with any surgical procedure. Risks of laser lithotripsy in particular include pain, blood in the urine, difficulty urinating, injury to the bladder or ureters when removing the stone, and infection. Sometimes it is not possible to reach the stone and stent will be placed and a second surgery will need to be scheduled. General anesthesia also has the risk of breathing problems, heart attack and stroke in patients who are high risk. Before Surgery: - A packet of information will be sent to you. It contains helpful information, details about how to prepare for surgery, and where to arrive on the day of surgery. Maps and local hotel information are sent to persons from out of town. If you have questions or have not received this information, please call our office at . - Most patients having surgery will need a physical completed to clear them medically for surgery. Pre-operative testing is completed approx. 1-2 weeks before your planned surgery. These tests will be done either at your pre-operative day at [facility], [facility], or with your regular doctor. - Some patients may require additional testing such as a stress test or cardiac clearance. - At the time of your pre-operative visit the following tests may be completed: Blood work, an EKG, and/ or a Chest X-ray - The day before your surgery you will need to call the surgical scheduling office to confirm your arrival time. - Do NOT eat or drink anything after midnight the night before your surgery. Medications: - Your information packet will contain a list of medications that need to be stopped before surgery. - Stop taking all herbal remedies 2 weeks before your surgery. - Please make certain that we know if you take medication that affected bleeding or is a blood thinner. Examples of these include Coumadin, Warfarin or Plavix. A safe plan will need to be made about how and when you take this medication near the time of your surgery. The Day of Surgery - Please report to the designated area at your confirmed arrival time. - Before you are taken to the operating room, you will change into a gown and have an IV started. - An anesthesiologist will come speak with you about the surgery and answer any questions that you may have. - Your family may stay with you in the pre-op area until you are taken to the operating room. Home Going Instructions: Activity: You are encouraged to walk every day, increasing the distance each day. You may go up and down steps, but please rest when you are tired. - Do NOT drive for 2-3 days after surgery or until you are not taking pain medications. You may ride in a car or plane. Be sure to get up and walk every 1-2 hours when traveling long distances. - Avoid strenuous activity for 1-2 days after surgery (running, jumping, lifting more than 10 lbs.) After that, NO limitations regarding lifting. Diet and Fluid Intake: Eating a well balanced diet is important. If you were on a specific diet before your surgery, you should return to that diet. Otherwise, there are no diet restrictions after surgery. Do NOT drink alcoholic beverages while taking pain medications. Drink at least 8 glasses of fluid per day, preferably water. Bowel Management: Constipation sometimes occurs after surgery, especially when taking pain medication. Eating a well-balanced diet and maintaining a good fluid intake are often all that is necessary to return to you pre-surgical bowel regimen. It is important not to strain excessively when having a bowel movement for the first several weeks following your surgery. A stool softener such as Colace may be helpful. You can purchase stool softeners without a prescription at your local drug store. If a stool softener is not enough to relieve your constipation, you may try taking Milk of Magnesia. You may use over the counter medicine, such a Gas-X, if you experience gas pains after surgery. Ureteral Stent: Most people experience some discomfort with a stent in place. Common symptoms include back pain, urinary frequency and urgency. Some people report burning with urination as well. You may see some blood off and on in your urine, especially after you are active. While these symptoms are common with a stent, if you are having a lot of pain that is not controlled with oral medications, please call our office to discuss your symptoms. Showering: You may shower when you get home from the hospital. Ok to swim and use a tub as well as long as the stent placed does not have a string attached. Pain Medications: f you are experiencing discomfort, you may take Tylenol or Ibuprofen. Infection: Report the following warning signs of infection to your doctor immediately: A temperature of 100.4 degrees or greater --> Proceed to ER immediately Unable to urinate. Sudden onset of increased pain or tenderness Increased amount of blood in the urine, or passing large blood clots Miscellaneous It is normal for you to have minor discomfort after your surgery. However, if there are any significant changes in your condition--such as shortness of breath, difficulty breathing, or pain or uneven swelling in your legs--please go to the Emergency Room immediately Return to Work: If you work in an office and are not lifting or doing strenuous activity, you may return to work when comfortable. If your work involves strenuous activity, you may need more time before returning to work. If necessary, our office can provide a letter stating the date that you may return to work. Follow-up Appointments Follow-up appointments will be scheduled by our office. If you have any questions, please call . documented in this encounter [facility] 01-03-2024 Telephone encounter Note Message seen after Pt was already at Hospital for surgery. [facility] 01-03-2024 Miscellaneous Notes Message seen after Pt was already at Hospital for surgery. Name of caller: [facility] Contact phone number: [phone] Relationship to Patient: na Provider: Dr. Vásquez Practice: Urology Chief Complaint/Reason for Call: Pt is scheduled for procedure on 01/03/24 Pt meds were suppose to be held starting 12/31/23 but the meds were not stopped. Needs to know if Pt can still have the procedure even though the meds were not stopped. Requesting call back today to discuss. Please advise Best time of day caller can be reached: Any AM Patient advised that office/PCP has 24-48 business hours to return their call: No documented in this encounter [facility] 01-03-2024 Note Formatting of this n ote might be different from the original. Lunch relief at 1030 [facility] 01-03-2024 Note Formatting of this n ote might be different from the original. Block team paged for patient IV access [facility] 01-03-2024 Note Formatting of this n ote might be different from the original. Lunch relief at 1030 [facility] 01-03-2024 Note Formatting of this n ote might be different from the original. Block team paged for patient IV access [facility] 01-03-2024 Note Formatting of this n ote might be different from the original. Patient BS 337 this morning, anesthesia notified. [facility] 01-03-2024 Note Formatting of this n ote might be different from the original. Patient BS 337 this morning, anesthesia notified. T [facility] 01-02-2024 Telephone encounter Note [facility] Contact phone number: [phone] Relationship to Patient: na Provider: Dr. Vásquez Practice: Urology Chief Complaint/Reason for Call: Pt is scheduled for procedure on 01/03/24 Pt meds were suppose to be held starting 12/31/23 but the meds were not stopped. Needs to know if Pt can still have the procedure even though the meds were not stopped. Requesting call back today to discuss. Please advise Best time of day caller can be reached: Any AM Patient advised that office/PCP has 24-48 business hours to return their call: No T [facility] 11-30-2023 Telephone encounter Note Spoke with Adiel @ [facility] information given and understood. If trouble with transportation Adiel will call the office T [facility] 11-30-2023 Miscellaneous Notes Spoke with Adiel @ [facility] information given and understood. If trouble with transportation Adiel will call the office 11/25/23 VERY difficult , left ureteral stent. Multilength. ( Body habitus, inability to bend right leg) Schedule cystoscopy, left ureteroscopic laser lithotripsy, left ureteral stent change in 2-3 weeks at [facility]. 1.5 hours. Has to be in room 14. Urine culture one week prior ( Order in) Mili documented in this encounter [facility] 11-29-2023 Nurse Note Nurse discharge report called to Vickie at [facility], reviewed discharge orders, and answered questions. "Jh" from transport called and told nurse that their bariatric box truck just broke down and now patient's picking machine operator helper time will be around 6:00 pm-7:00 pm. The truck will be coming from [place]. Patient refused vitals this morning. Patient kept violently trying to throw off blood pressure cuff. Patient came to the floor at approximately 0200. Attempted to flush existing IV and IV had to be removed. Multiple nurses and rapid response attempted to gain IV access. Physician notified. Neelima Arevalo RN This nurse discussed plan of care with pt. Pt refused 4 eye skin check. Pt refused ET mix, powder and voltaren. Pt asked to speak to charge nurse because she wanted a new room. Pt stated that the fan was too loud and she would not be able to sleep. Charge nurse discussed with pt and called and drying supervisor cooking casing. Senior Hydrogeologist to unit to talk with pt. Pt environment safe. Care ongoing. nurseryman assistant attempted to check pt POCT. Pt refused to allow the NA to gather the blood glucose level. Nursing then attempted to check POCT. Pt refused to allow the nurse to gather the POCT and became verbally and physically aggressive towards the nursing staff. Pt also refusing night time medications as well. Nursing notified the MD of pts refusal. No new orders at this time. Nursing will attempt at a later time. Patient refused Vanc blood draw this morning. Patient daughter called for update; told this RN that she does not want her mother to return to [facility] and wants help from our TCC/Social work finding a memory care unit for her mother. This RN told her she would pass along the information. All other questions answered. This RN called biomedical engineering who says they will place order for new tele box tomorrow Telephone report given to MATHEUS Tan on H6 This RN spoke with MATHEUS Worthy about missing tele box and went to PACU to look for tele box without success. Pt resting awake and without sx of distress under MATHEUS Worthy's care. This RN also spoke with SONALI Ventura who denies seeing tele box. RN spoke with and drying supervisor cooking casing Mari who instructed RN to call biomedical engineering. RN spoke with bed coordinator for a different private tele bed. Pt now assigned to room H6114 Report received from rob FRAZIER. Patient resting in bed. No Acute distress. Easy Chest rise and fall. Continuous tele monitoring in progress. Safety measures maintained. Call light in reach. Will continue with plan of care. Attempted 3 times by 2 nurses to obtain Blood cultures. All attempts unsuccessful. MH TEACHER paged to assist with obtaining labs. Per Consult order from Dr Sal, Dr Bruno in room with patient for consultation evaluation. I overheard patient telling Dr. Bruno, in a loud voice to leave her alone, and she told him to shut up. Dr. Bruno spoke with pleasant tone and demeanor as he explained reason for consult, his assessment, the status of her infection and plan for treatment with patient. Patient remains on tele monitoring, Sinus Rhythm. Patient initially refused blood sugar check again, but finally agreed with encouragement. I contacted hospitalist per her request for pain medications. See new orders. Tech reported that patient refused her blood sugar. I went in to discuss it with patient and she is sleeping, eyes closed, respers easy. IV ATB infusing as ordered. Call light in reach. Safety measures maintained. Continuous tele monitoring in progress. Will attempt to discuss need for blood sugar check and insulin prior to time for scheduled insulin. Arrived to [facility] via Bariatric bed and 4 medics. Awake, A&Ox2. Pt yells out when moved. Multiple areas of red,dry flaky skin noted. Incontinent of stool. Pt cleansed and repositioned. Dry go placed in abdominal and groin folds. Call light in reach. documented in this encounter [facility] 11-29-2023 Miscellaneous Notes Discharge med list and MAR transmitted to [facility] via [facility] per TCC request. Discharge orders placed JENN completed Tasked SW to set up transport for pt to return to [facility]; Transport set for 4pm. Tasked ICHTHYOLOGY TEACHER to send discharge orders and OPAT to SNF. [facility] task to ICHTHYOLOGY TEACHER to send OPAT and Discharge orders to [facility]. [facility] message to SNF re Discharge. Good for discharge. Nurse to nurse # is [phone]. [facility]. Spoke with Attending MD, he is noting plan for discharge but spoke with family and they are concerned since later in day and they do not want a night time transfer. Try for 3 pm transfer. Noted will ask SW to set up earlier then evening and SW will update on transport time. MD agreeable to this plan. Secure chat with SW and Floor SN to report MD requesting 3 pm transport, not night transport. He said family is concerned so would just need a transfer sooner than later. He is going to work on the discharge orders now. Thank you! Provided info per [facility]port for report Nurse to nurse # is [phone]. [facility]. TCC will follow through discharge. TCC requested social services designee arrange transportation for pt. loft worker head arranged transportation for 4pm. loft worker head informed daughter , Deidra, transportation is scheduled for 4pm. Deidra stated her mother is asking to stay one more day for her IV antibiotics. loft worker head informed Deidra I will consult with the team and get back to her. loft worker head informed treatment team of Deidra's concerns, the doctor stated pt is ready for discharge, and nurse stated patient will complete her antibiotics at the facility until 12/07/23. loft worker head contacted Deidra back, and reported Salazar will continue her antibiotics until 12/07/23 at the facility. Deidra was agreeable. loft worker head notified RN, TCC, Facility and dehydration unit operator of discharge time. . OPAT, MAR and updated notes placed to [facility] via [facility] per TCC request. Await review and response regarding ability to accept. TCC notified. The patient is Moderately Stable - Low risk of patient condition declining or worsening The patient's goals for the shift include to manage pain The clinical goals for the shift include Problem: Knowledge Deficit Goal: Patient/family/caregiver demonstrates understanding of disease process, treatment plan, medications, and discharge instructions Outcome: Progressing Problem: Potential for Compromised Skin Integrity Goal: Skin Integrity is Maintained or Improved Outcome: Progressing Problem: Potential for Compromised Skin Integrity Goal: Nutritional status is improving Outcome: Progressing Problem: Urinary Incontinence Goal: Perineal skin integrity is maintained or improved Outcome: Progressing Over the shift, the patient did make progress toward the following goals. Barriers to progression include progressing. Images from the original note were not included. Care Management Progress Note Pt on 7W, prior noted. Pt s/p L stent placement 11/25/2023, plan OP Urology f/up for stent removal. Chronic jose in place. + UTI, ID following, Merrem and Vanc IV noted. 2nd set of BC's NGTD x 4 days; Prior BC GPC, ID waiting for final identification of GPC. Waiting for ATB plan from ID per medical team. PICC line placed 11/27. Plan return to [facility], bed hold and no auth required. SW assist with transport. SW and TCC to continue to follow. Discharge Milestones and Delays Expected date/time: 11/30/2023 Expected discharge disposition: Residential/Residential Care Discharge Milestones Place discharge order Complete med reconciliation Case mgmt discharge readiness Clinical Stability Diagnostic Workup Ball Holder Recommendations Facility Choice Selection Imaging Results Patient Education Complete Expected Discharge History Expected Date/Time Set By Reviewed At 11/30/2023 Deanne Cortez RN 11/29/2023 8:25 AM tcc estimates 11/30/2023 Deanne Cortez RN 11/28/2023 9:37 AM 11/30/2023 Deanne Coronado RN 11/27/2023 9:01 AM 11/26/2023 Deanne Coronado RN 11/26/2023 9:13 AM 11/26/2023 Giuliana Aparicio DO 11/23/2023 3:26 PM 11/25/2023 Giuliana Aparicio DO 11/23/2023 12:22 AM Length of Stay (Days): 6 GMLOS: 5.2 The patient is Moderately Stable - Low risk of patient condition declining or worsening The patient's goals for the shift include The clinical goals for the shift include Called for IV placement. After looking with ultrasound guidance, patient does not have adequate vasculature for PIV. Primary team aware of need for alternative access if IV is needed. Problem: Knowledge Deficit Goal: Patient/family/caregiver demonstrates understanding of disease process, treatment plan, medications, and discharge instructions Outcome: Progressing Problem: Potential for Compromised Skin Integrity Goal: Skin Integrity is Maintained or Improved Outcome: Progressing Goal: Nutritional status is improving Outcome: Progressing Problem: Urinary Incontinence Goal: Perineal skin integrity is maintained or improved Outcome: Progressing Problem: Pain - Adult Goal: Verbalizes/displays adequate comfort level or baseline comfort level Outcome: Progressing Problem: Safety - Adult Goal: Free from fall injury Outcome: Progressing Problem: Discharge Planning Goal: Discharge to home or other facility with appropriate resources Outcome: Progressing Problem: Chronic Conditions and Co-morbidities Goal: Patient's chronic conditions and co-morbidity symptoms are monitored and maintained or improved Outcome: Progressing Problem: Problem Interventions Goal: Assess Nutritional Intake Outcome: Progressing Patient remains on H6 s/p L stent placement 11/25/2023. Regular diet noted. Chronic jose noted. + UTI, Merrem and Vanc IV noted. Blood cx -48 hours. ID following. Waiting on final cx for ATB plan from ID per medical team. DCP return to [facility], bed hold and no auth required. TCC to assist and follow as needed. The patient is Moderately Stable - Low risk of patient condition declining or worsening Problem: Knowledge Deficit Goal: Patient/family/caregiver demonstrates understanding of disease process, treatment plan, medications, and discharge instructions Outcome: Progressing Problem: Potential for Compromised Skin Integrity Goal: Skin Integrity is Maintained or Improved Outcome: Progressing Flowsheets (Taken 11/27/2023 0530) Skin integrity is maintained or improved: Assess and monitor skin integrity Keep skin clean and dry Avoid shearing Goal: Nutritional status is improving Outcome: Progressing Problem: Urinary Incontinence Goal: Perineal skin integrity is maintained or improved Outcome: Progressing Problem: Pain - Adult Goal: Verbalizes/displays adequate comfort level or baseline comfort level Outcome: Progressing Flowsheets (Taken 11/27/2023 0530) Verbalizes/displays adequate comfort level or baseline comfort level: Encourage patient to monitor pain and request assistance Assess pain using appropriate pain scale Problem: Safety - Adult Goal: Free from fall injury Outcome: Progressing Problem: Discharge Planning Goal: Discharge to home or other facility with appropriate resources Outcome: Progressing Problem: Chronic Conditions and Co-morbidities Goal: Patient's chronic conditions and co-morbidity symptoms are monitored and maintained or improved Outcome: Progressing Problem: Problem Interventions Goal: Assess Nutritional Intake Outcome: Progressing Problem: Potential for Compromised Skin Integrity Goal: Skin Integrity is Maintained or Improved Outcome: Progressing Problem: Potential for Compromised Skin Integrity Goal: Nutritional status is improving Outcome: Progressing Problem: Pain - Adult Goal: Verbalizes/displays adequate comfort level or baseline comfort level Outcome: Progressing Care Managment Initial Assessment Date: 11/26/2023 Patient Name: Salazar Coyle : 1950 Patient Information Source of Information: Patient Registered Nurse Maternity Name/Contact Information: haven Lee Cognition/Language: Confused at baseline Permission given to speak with patient career services representative/caregiver as indicated: Confirmation of Payer with patient/family: Yes Payer Name: t Medicare Adv and Medicaid [place]: No Confirmation of Primary Care Physician: Confirmed PCP Name: Jas Rivera Seen in last 2 years?: Yes Primary Caregiver: (staff) If assistance needed, confirmed caregiver ready, willing and able to care for patient at discharge: Confirmed with: Deidra, daughter and Jesus, spouse Living Arrangements Current Residence: Number of Floors Number of Entry Steps: Bed/Bath Levels: Facility: Residential/Residental Care Facility Name: [facility] Plan to Return: Yes Lives with: (facility) Support Systems: Children, Spouse/significant other Activities of Daily Living Ambulation: Total Care Bathing/Dressing: Total Care Elimination/Continence/Toileting: Total Care Feeding: Total Care Who Assists with Activities of Daily Living: staff and family Instrumental Activities of Daily Living Prescription Coverage: Yes Pharmacy Used: facility Medication Management: Transportation/Shopping: Transportation Mode: Needs Assistance with Transportation at Discharge: Meal Preparation: Assistance Provider Meal Prep Assistance Provider Name: staff Laundry/Cleaning: Assistance Provider Laundry/Cleaning Assistance Provider Name: staff Finances/Bill Paying: Assistance Provider Finances/Bill Payer Assistance Provider Name: staff Communication: Types of Care Services/Equipment Utilized Care Services: Dialysis Type: Durable Medical Equipment: Patient's Goal/Discharge Plan Patient expects to be discharged to: [facility] Discharge Planning Actions: Continue to follow Patient's Choice Rights and [employer] and Collaborative Relationships Disclosed as Indicated for Post-Acute Care: Interdisciplinary Team Engagement: Social Work Referral for: Additional Information: Patient admitted to s/p L stent placement 11/25/2023. Regular diet noted. Chronic jose noted. + UTI, Merrem and Vanc IV noted. Blood cx -24 hours. TCC placed call to daughter Deidra and left message. TCC placed call to spouse Jesus and he answered questions. Patient has insurance, Rx coverage and PCP. Patient lives at [facility]. Patient is bed bound, only able to move L hand. Per spouse patient to return to [facility]. [facility] tasked to make referral to [facility]. TCC to assist and follow as needed. Deanne Coronado RN Referral placed to [facility] via [facility] per TCC request. Await review and response regarding ability to accept. TCC notified. Electronically signed by [facility] Sameera Chu Problem: Pain - Adult Goal: Verbalizes/displays adequate comfort level or baseline comfort level Outcome: Progressing The patient is Moderately Unstable - Medium risk of patient condition declining or worsening Problem: Knowledge Deficit Goal: Patient/family/caregiver demonstrates understanding of disease process, treatment plan, medications, and discharge instructions 11/25/20231755 by Britney Longoria RN Outcome: Not Progressing 11/25/20231755 by Britney Longoria, MATHEUS Outcome: Not Progressing Problem: Potential for Compromised Skin Integrity Goal: Skin Integrity is Maintained or Improved Outcome: Not Progressing Problem: Urinary Incontinence Goal: Perineal skin integrity is maintained or improved Outcome: Progressing Problem: Pain - Adult Goal: Verbalizes/displays adequate comfort level or baseline comfort level Outcome: Progressing Problem: Safety - Adult Goal: Free from fall injury Outcome: Progressing Report given to H6, in for transport. Pt doing well in recovery, very pleasant and no complaints, denies pain. Contacted Mari nurse and drying supervisor cooking casing about tele box missing. Will hold pt in pacu until resolved. Pt remains comfortable and pleasant, no issues. Pt waking up pleasantly, no complaints, VSS. This RN had placed her tele box for 5W on pt's bedside table, and when [employer] brought patient, tele box was gone. RN asked to please check the OR and see if they can locate the tele box. PreOp Dx Left proximal ureteral calculus, UTI, obesity PostOp Dx Same Operation Cystoscopy, Left ureteral stent placement ( 6 x variable length) Surgeon Bashir Vásquez MD Assist Aubrie Ramos MD EBL Minimal Drains 6fr X variable length Jose Specimen None Condition To PACU This is a 73 y.o.female patient who presents with 9mm left UPJ ureteral calculus, UTI. She weighs 350 lbs. After having a discussion on treatment options, risks and benefits, the patient wishes to proceed forward with surgical intervention Patient was brought to the operating room. A thorough time out was performed and everyone present was in agreement. Patient was placed on OR table. Anesthesia and lines were maintained by the anesthesia team. Patient was placed in the dorsal lithotomy position. Prepped and draped in usual fashion. Pressure points were padded. A cystourethroscope was inserted through the urethra and the bladder was inspected. 0.035 glide wire placed up the left side,a 6x variable length stent was placed over wire and placed into position using fluoroscopic guidance. Wire removed, Stent in good position. Scope removed. Patient awakened after tolerating procedure well. Patient medicated for pain per her request r/t chronic pain. Patient slept at long intervals, no acute distress. Patient has been non-compliant with assessment and care. Patient has yelled at consulting physician to shut up and to leave her alone. Patient has refused blood sugar checks when attempted by tech, and resistant to care, nursing assessment, wound evaluation and measurements. Patient in bariatric bed, but refuses repositioning and yells at staff when attempted even small amounts of repositioning. Will continue to support, educate and provide safety measures. Problem: Knowledge Deficit Goal: Patient/family/caregiver demonstrates understanding of disease process, treatment plan, medications, and discharge instructions Outcome: Not Progressing Problem: Potential for Compromised Skin Integrity Goal: Skin Integrity is Maintained or Improved Outcome: Not Progressing Problem: Chronic Conditions and Co-morbidities Goal: Patient's chronic conditions and co-morbidity symptoms are monitored and maintained or improved Outcome: Not Progressing documented in this encounter [facility] 11-29-2023 Hospital course Narrative Images from the original note were not included. Hospitalist Discharge Summary Salazar Coyle : 1950 Admit date: 11/22/2023 Discharge date: 11/29/2023 Admitting Physician: Nilo vIan MD Primary Care Physician: Paige Rivera DO Visit Status: Inpatient Code Status: DNR-CCA Acute, acute on chronic, unstable/uncontrolled chronic problems/diagnoses: Acute metabolic encephalopathy in setting of dementia- resolved Complicated UTI only likely secondary to chronic indwelling catheter, severe sepsis ruled out L UPJ calculi s/p cystoscopy and L stent placement 11/24 Positive blood cultures x2- ? Contamination, repeat BC show NGTD Fungal dermatitis Stable chronic problems affecting care, new non-acute diagnoses: Atrial fibrillation on Eliquis [id number] 9.4 Prolonged Qtc Neurogenic bladder s/p Chronic Jose HLD Dementia CKD stage III PHOEBE Hx of HTN Chronic pain syndrome Obesity Past Medical History: Diagnosis Date A-fib (CMS/HCC) (HCC) Anemia Diabetes (HCC) Lymphedema Obesity Procedures: cystoscopy and L stent placement 11/24 Hospital Course: Salazar is a 73 y.o. female with past medical history of atrial fibrillation on Eliquis, T2DM, HTN, HLD, PHOEBE, Dementia, chronic pain syndrome, CKD stage III, H/o obstructive proximal ureteral calulus s/p emergent cysto/L ureteral stent placement 06/10/22- Stent exchange 08/03/22-Stent removal 09/27/23, neurogenic bladder s/p chronic indwelling Jose catheter, obesity. Patient was recently admitted to hospital for septic shock, found to have ESBL UTI with bacteremia. Presents back to the hospital with confusion and lethargy at [facility]. Initial ED workup noted normal renal function, no electrolyte abnormalities. Glucose elevated at 350. Troponin <0.012. WBCS WNL at 7.4. Vital signs note Hypertension - SBP 160-180s. HR in 60s-70s. Pt is afebrile. Initial; Lactic acid elevated at 2.6 - fluids were limited d/t Pt HX of fluid overload. On review of AM noted lactic acid has actually increased to 2.9 , IV fluids were started, home Bumex held. Admitted for further evaluation/management. 11/24: Patient found to have recurrent L UPV calculi and non obstructive L renal calculi. Pt underwent cystoscopy, L ureteral stent placement on 11/24. Found to have complicated UTI d/t Ecoli and Providencia in setting of Jose catheter. BC positive for staph hominis, epi. ID following, treating with Meropenem and Vancomycin then Vanco stopped and patient will only be on Meropenem. Final GPC on blood cx resulted as kocuri rosea which is deemed another skin contaminant. Planning for PICC line and tentatively 2 week IV ABX course at discharge. Plan for patient to return to [facility] at discharge. See discharge diagnoses list above and medication adjustments below in med rec.The patient is discharged in improved and stable condition. Consults: IP CONSULT TO INFECTIOUS DISEASES IP WOUND CARE NURSE CONSULT TO EVAL INPATIENT CONSULT TO CRITICAL CARE - MEDICAL TEAM IP CONSULT TO UROLOGY IP WOUND CARE NURSE CONSULT TO EVAL IP CONSULT TO PROCEDURE TEAM Discharge Instructions: Diet: Dietary Orders (From admission, onward) Start Ordered 11/26/23 1515 Adult diet Regular; 4 carb choices (60 gm/meal) Diet effective now Question Answer Comment Diet type Regular Carbohydrate restriction: 4 carb choices (60 gm/meal) 11/26/23 1514 Activity: as tolerated Recommended Outpatient Tests: Disposition: Patient discharged in stable condition to SNF . Greater than 31 minutes spent discharging the patient and coming up with patient discharge plan. Vitals: BP (!) 133/41 (BP Location: Left arm, Patient Position: Lying) Pulse 68 Temp 36.1 C (96.9 F) (Temporal) Resp 16 Ht 5' 5" (1.651 m) Wt (!) 342 lb 9.6 oz (155 kg) SpO2 95% BMI 57.01 kg/m Pulse Ox: SpO2 Av % Min: 95 % Max: 95 % Supplemental O2: O2 Flow Rate (L/min): 4 L/min Physical Exam Cardiovascular: Rate and Rhythm: Normal rate and regular rhythm. Pulses: Normal pulses. Heart sounds: Normal heart sounds. Pulmonary: Effort: Pulmonary effort is normal. Breath sounds: Normal breath sounds. Abdominal: General: Bowel sounds are normal. Palpations: Abdomen is soft. Neurological: Mental Status: Mental status is at baseline. LABS: Recent Labs 11/27/23 0121 11/28/23 0545 11/29/23 0214 NA 136 137 136 K 4.7 4.9 3.8 CL 108* 108* 108* CO2 27 BUN 23* 20* 20* CREATININE 0.70 0.61 0.76 GLUCOSE 284* 198* 206* CALCIUM 8.1* 8.4 8.0* Recent Labs 11/27/23 0331 11/29/23 0214 11/29/23 1042 WBC 4.2 4.8 5.1 RBC 3.44* 3.00* 3.27* HGB 10.7* 9.4* 10.1* HCT 34.6* 30.2* 32.2* MCV 100.6* 100.7* 98.5 MCH 31.1 31.3 30.9 MCHC 30.9 31.1 31.4 RDW 16.0* 16.0* 16.0* PLT 147 144 152 MPV 11.6 11.2 11.0 Discharge Medications: Medication List START taking these medications ammonium lactate 12 % lotion Commonly known as: Lac-Hydrin Apply topically as needed for dry skin. melatonin 3 MG tablet Take 2 tablets (6 mg) by mouth Nightly. meropenem 2,000 mg in sodium chloride 0.9 % 100 mL IVPB Infuse 2,000 mg into a venous catheter in the morning and 2,000 mg at noon and 2,000 mg before bedtime. Do all this for 8 days. * miconazole 2 % powder Commonly known as: Micotin Apply topically 2 times daily. * miconazole 2 % powder Commonly known as: Micotin Apply topically as needed for itching. polyethylene glycol (PEG) 3350 17 g packet Commonly known as: Miralax Take 17 g by mouth Daily as needed (constipation) for up to 3 days. * This list has 2 medication(s) that are the same as other medications prescribed for you. Read the directions carefully, and ask your doctor or other care provider to review them with you. CHANGE how you take these medications * acetaminophen 325 MG tablet Commonly known as: Tylenol Take 2 tablets (650 mg) by mouth every 6 hours as needed for mild pain (1-3) or fever (For temp greater than 100.4 F (38 C)) for up to 10 days. What changed: You were already taking a medication with the same name, and this prescription was added. Make sure you understand how and when to take each. * acetaminophen 325 MG tablet Commonly known as: Tylenol What changed: Another medication with the same name was added. Make sure you understand how and when to take each. oxyCODONE 5 MG immediate release capsule Commonly known as: Oxy-IR Take 1 capsule (5 mg) by mouth every 6 hours as needed for severe pain (7-10). What changed: when to take this reasons to take this * This list has 2 medication(s) that are the same as other medications prescribed for you. Read the directions carefully, and ask your doctor or other care provider to review them with you. CONTINUE taking these medications apixaban 5 MG tablet Commonly known as: Eliquis ascorbic acid 250 MG tablet Commonly known as: Vitamin C atorvastatin 20 MG tablet Commonly known as: Lipitor baclofen 5 MG tablet Commonly known as: Lioresal bumetanide 1 MG tablet Commonly known as: Bumex Take 1 tablet (1 mg) by mouth in the morning and 1 tablet (1 mg) in the evening. Diclofenac Sodium 1 % gel Commonly known as: Voltaren Apply 4 g topically 2 times daily. donepezil 10 MG tablet Commonly known as: Aricept gabapentin 100 MG capsule Commonly known as: Neurontin Take 3 capsules (300 mg) by mouth 3 times daily. insulin glargine 100 UNIT/ML injection Commonly known as: Lantus Inject 30 Units under the skin Nightly. Insulin Lispro 100 UNIT/ML solution injection Commonly known as: Humalog Inject 5 Units under the skin in the morning and 5 Units at noon and 5 Units in the evening. Inject with meals. nystatin 237487 UNIT/GM powder Commonly known as: Mycostatin Oyster Shell Calcium/D 500-5 MG-MCG tablet senna-docusate 8.6-50 MG tablet Commonly known as: [place]-Colace STOP taking these medications sertraline 50 MG tablet Commonly known as: Zoloft Where to Get Your Medications You can get these medications from any pharmacy Bring a paper prescription for each of these medications oxyCODONE 5 MG immediate release capsule Information about where to get these medications is not yet available Ask your nurse or doctor about these medications acetaminophen 325 MG tablet ammonium lactate 12 % lotion melatonin 3 MG tablet meropenem 2,000 mg in sodium chloride 0.9 % 100 mL IVPB miconazole 2 % powder miconazole 2 % powder polyethylene glycol (PEG) 3350 17 g packet Recommended Follow-up: Paige Rivera DO [id number] [facility] [id number] Follow up in 1 week(s) Complexity of Follow up: [] Moderate Complexity: follow up within 7-14 calendar days (70843) [x] Severe Complexity: follow up within 7 calendar days (08176) Follow up Testing, Pending results or Referrals at Transitional Care Visit: [x] yes [] no Instructions to MA: Please call patient on day after discharge (must document patient contacted within 2 business days of discharge). Follow up questions for MA: 1. Did you get medications filled and taking them as instructed from discharge? 2. Are you following your discharge instructions from your hospital stay? 3. Please confirm patient is scheduled for a follow up appointment within the above time frame. Signed: Raphael Irwin DO [facility] [place] 11/29/2023, 2:45 PM documented in this encounter [facility] 11-29-2023 Hospital Discharge instructions Raphael Irwin DO - 11/29/2023 2:44 PM EDT As tolerated Abdi Abraham RN - 11/29/2023 2:14 PM EDT Images from the original note were not included. 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 No Past Surgical History: Past Surgical History: Procedure Laterality Date URETEROSCOPY Left 09/27/2023 Cytoscopy, left ureteral stent removal , left flexible ureteroscopic laser lithotripsy. Spear Immunization History: Immunization History Administered Date(s) Administered Covid-19, Moderna Bivalent Booster, (Age 6y-11y) 05/10/2022 Influenza, High Dose Seasonal, Preservative Free 01/07/2018 Influenza, Unspecified 01/31/2017 Pfizer SARS-CoV-2 Vaccination 04/20/2020, 05/11/2020 Pneumococcal Polysaccharide PPSV23 01/31/2017 Active Problems: Medical Problems Problem List * (Principal) Altered mental status, unspecified altered mental status type Edema Septic shock (HCC) Inflammatory reaction due to indwelling ureteral stent, initial encounter (HCC) Ureteropelvic junction calculus Overview Signed 08/07/2022 6:48 PM by Deacon Tariq MD Laser lithotripsy 07/2022 WHITLEY (acute kidney injury) (HCC) Chronic venous stasis Radicular pain in right arm Severe sepsis (HCC) Acute cystitis without hematuria Left ureteral calculus Hypertension Foot ulcer (HCC) Hyperlipemia Bladder spasm Type 2 diabetes mellitus with hyperglycemia (HCC) Overview Signed 01/14/2022 2:38 PM by Interface, Incoming Problems- [facility] Conversion Important Lab History: HBA1C: 09/2015: >13%, 10/2015: 10.4% Thyroid Function Testing: Renal Function Testin12/2015: Creatinine 0.81 Urine for Microalbumin: Lipid Profile: Liver Profile: Dilated Eye Exam: 09/2015: Hospitalized, Doctor Dmitriy consulted, was on orals at that time, HbA1C was over 13%, insulin was started. 12/2015: First time office visit for Type 2 Diabetes Mellitus management. Known to Doctor Izaguirre through [facility] at [facility]. Long acting insulin: Insulin used for this is called: Levemir Bedtime dose 85 units Rapid acting /mealtime insulin: Insulin used for this is called: Novolog Breakfast dose: 40 units Lunchtime dose 40 units Supper dose 40 units States since hospital discharge readings have been significantly above goal. Describes going to Primary Care Provider office and they recently increased insulin to the above doses. I spent a good deal of time with insulin education, after patient provided me a return demonstration, she HAS NOT been injecting insulin at all this whole time. This is likely why she has required less insulin when hospitalized since nurses were administering the insulin. There are two protective caps on the needle, she was only removing the outer one, therefore; has not been actually injecting the insulin. She states she didn't know why it felt like the insulin was running down her skin. States she was never taught the proper way to administer insulin. Denies frequent periods of hypoglycemia. I reviewed its signs and symptoms. Wounds, multiple Degenerative disc disease, cervical Chronic pain Osteoarthrosis PAF (paroxysmal atrial fibrillation) ([facility]) Cognitive decline Morbid obesity with BMI of 60.0-69.9, adult ([facility]) 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 ([facility]) Recurrent UTI Cerebrovascular accident ([facility]) Hyperglycemia Chronic indwelling Jose catheter Overview Signed 01/14/2022 2:39 PM by Interface, Incoming Problems- [facility] Conversion Notes refer to chronic jose going back to 2019 CKD (chronic kidney disease) Asymptomatic bacteriuria Anemia Kidney calculi Isolation/Infection: No active isolations ESBL Nurse Assessment: Last Vital Signs: BP (!) 133/41 (BP Location: Left arm, Patient Position: Lying) Pulse 68 Temp 36.1 C (96.9 F) (Temporal) Resp 16 Ht 1.651 m (5' 5") Wt (!) 155 kg (342 lb 9.6 oz) SpO2 95% BMI 57.01 kg/m Last documented pain score (0-10 scale): Last Weight: Wt Readings from Last 1 Encounters: 11/24/23 (!) 155 kg (342 lb 9.6 oz) Mental Status: JENN Patient Mental Status: disoriented, alert, and oriented to person and place IV Access: JENN IV Access: PICC - site: upper arm right, condition patent, no redness, and and double lumen 5 fr . Length, 41 cm cuff , insertion date: 11/28/2023 Nursing Mobility/ADLs: Walking Total assistance Transfer Total assistance Bathing Total assistance Dressing Total assistance Toileting Total assistance Feeding Total assistance Store Assistant Total assistance Med Delivery no Wound Care Documentation and Therapy: Wound/Incision 11/23/23 Traumatic Breast Lateral;Left;Lower (Active) Site Assessment Unable to assess;Other (Comment) 11/29/23 0900 [place]-Wound Assessment Red;Excoriated 11/26/23 0940 Drainage Description Clear 11/26/23 0940 Odor Mild 11/27/23 0810 Drainage Amount None 11/27/23 0810 Treatments Pharmaceutical agent 11/27/23 0810 Primary Dressing Open to air 11/27/23 0810 Dressing Status Other (Comment) 11/25/23 0230 Number of days: 6 Wound/Incision 11/23/23 Traumatic Arm Left;Proximal;Upper;Posterior (Active) Site Assessment Unable to assess 11/29/23 0900 [place]-Wound Assessment Red 11/26/23 0940 Drainage Description Clear 11/26/23 0940 Odor None 11/27/23 0810 Drainage Amount None 11/27/23 0810 Treatments Pharmaceutical agent 11/27/23 0810 Primary Dressing Open to air 11/27/23 0810 Number of days: 6 Wound/Incision 11/23/23 Traumatic Right;Posterior (Active) Site Assessment Unable to assess 11/29/23 0900 [place]-Wound Assessment Red;Painful 11/26/23 0940 Drainage Description Red 11/23/23 1054 Odor None 11/27/23 0810 Drainage Amount None 11/27/23 0810 Primary Dressing Open to air 11/27/23 0810 Number of days: 6 Wound/Incision 11/23/23 Knee Right;Posterior (Active) Number of days: 5 Wound/Incision 11/23/23 Pressure Injury Leg Proximal;Right;Upper;Posterior (Active) Site Assessment Unable to assess 11/29/23 0900 [place]-Wound Assessment Blanchable erythema 11/26/23 0940 Wound Length (cm) 1 cm 11/24/23 1736 Wound Width (cm) 1 cm 11/24/23 1736 Wound Surface Area (cm^2) 1 cm^2 11/24/23 1736 Odor None 11/27/23 0810 Drainage Amount None 11/27/23 0810 Treatments Pharmaceutical agent 11/27/23 0810 Primary Dressing Open to air 11/27/23 0810 Number of days: 5 Elimination: Continence: Bowel: no Bladder: no Urinary Catheter: Last change date: @ 0847 Colostomy/Ileostomy/Ileal Conduit: None Date of Last BM: 11/29/2023 Intake/Output Summary (Last 24 hours) at 11/29/2023 1412 Last data filed at 11/29/2023 0926 Gross per 24 hour Intake 780 ml Output 775 ml Net 5 ml I/O last 3 completed shifts: In: 500 (3.2 mL/kg) [P.O.:500] Out: 1050 (6.8 mL/kg) [Urine:1050 (0.2 mL/kg/hr)] Weight: 155.4 kg Safety Concerns: sundowners syndrome and at risk for falls Impairments/Disabilities: vision and hearing, patient is complete care-max asst. Nutrition Therapy: Current Nutrition Therapy: Oral diet: carb control 4 carbs/meal (1800kcals/day) Routes of Feeding: oral Liquids: thin liquids Daily Fluid Restriction: no Last Modified Barium Swallow with Video (Video Swallowing Test): not done Treatments at the Time of Hospital Discharge: Respiratory Treatments: unknown at this time Oxygen Therapy: is not on home oxygen therapy. Ventilator: No ventilator support Rehab Therapies: physical therapy and occupational therapy Weight Bearing Status/Restrictions: bedbound Other Medical Equipment (for information only, NOT a DME order): bedbound Other Treatments: Patient's personal belongings (please select all that are sent with patient): just clothes RN SIGNATURE: MANAGEMENT/SOCIAL WORK SECTION Inpatient Status Date: 11/23/2023 Discharging to Facility/ Agency Name: [facility] Address: [address] [place], [place] [id number] [phone] Fax: Dialysis Facility (if applicable) Name: Address: Dialysis Schedule: Phone: Fax: Call Center Coordinator/Occupational Therapist Assistant signature: ICIAN SECTION Name: Salazar Coyle Prognosis: excellent Condition at Discharge: stable Rehab Potential (if transferring to Rehab): excellent Recommended Labs or Other Treatments After Discharge: CBC and BMP in 3 days The individual is being admitted to a nursing facility directly from an [facility] or a unit of a [facility] that is not operated by or licensed by [facility] under section 5119.14 or 5160-3-15.1 5 The individual requires the level of services provided by a nursing facility for the condition for which he or she was treated in the hospital and, Physician Certification: I certify the above information and transfer of Salazar Coyle is necessary for the continuing treatment of the diagnosis listed and that she requires correction facility for greater than 30 days. Update Admission H&P: No change in H&P PHYSICIAN SIGNATURE: documented in this encounter [facility] 11-29-2023 History of Present illness Narrative Patient chart is reviewed. Currently rounding. Full note to follow. Vancomycin therapy has been discontinued by Gerald Campbell on 11/29/23. Thank you for the consult. Pharmacy signing off for vancomycin dosing. Milagros Reveles [facility], PharmD Date: 11/29/23 Time: 12:04 PM Images from the original note were not included. [facility] - Infectious Diseases Advanced Practice Provider Progress Note Subjective: Following for complicated UTI (e coli, providencia) in setting of recurrently L UPV calculi and non obstructive L renal calculi. Pt underwent cystoscopy, L ureteral stent placement on 11/24. Notes reviewed. Pt resting in bed this AM. Easily awakens. Still with some L flank pain. Denies fever, chills, n/v or breathing issues overnight. Objective: Vitals: Patient Vitals for the past 24 hrs: BP Temp Temp src Pulse Resp SpO2 11/28/23 1645 (!) 133/41 36.1 C (96.9 F) Temporal 68 16 95 % Physical Exam Vitals and nursing note reviewed. Constitutional: General: She is not in acute distress. Appearance: She is obese. She is ill-appearing. She is not toxic-appearing or diaphoretic. Comments: Pt lying in bed, NAD. Responds appropriately, conversant. HENT: Head: Normocephalic and atraumatic. Right Ear: External ear normal. Left Ear: External ear normal. Nose: Nose normal. Mouth/Throat: Mouth: Mucous membranes are moist. Pharynx: Oropharynx is clear. No oropharyngeal exudate. Eyes: General: Right eye: No discharge. Left eye: No discharge. Extraocular Movements: Extraocular movements intact. Cardiovascular: Rate and Rhythm: Normal rate and regular rhythm. Pulses: Normal pulses. Heart sounds: Normal heart sounds. No murmur heard. Pulmonary: Effort: Pulmonary effort is normal. No respiratory distress. Breath sounds: Normal breath sounds. No wheezing or rhonchi. Comments: Unlabored effort on room air Abdominal: General: Abdomen is flat. Bowel sounds are normal. There is no distension. Palpations: Abdomen is soft. Tenderness: There is left CVA tenderness. There is no right CVA tenderness. Musculoskeletal: Cervical back: Normal range of motion. No rigidity. Skin: General: Skin is warm and dry. Coloration: Skin is not jaundiced. Findings: No rash. Comments: PICC site clean Neurological: General: No focal deficit present. Mental Status: She is alert and oriented to person, place, and time. Mental status is at baseline. Sensory: No sensory deficit. Motor: Weakness present. Psychiatric: Mood and Affect: Mood normal. Behavior: Behavior normal. Thought Content: Thought content normal. Labs: Recent Labs 11/27/23 0121 11/28/23 0545 11/29/23 0214 NA 136 137 136 K 4.7 4.9 3.8 CL 108* 108* 108* CO2 BUN 23* 20* 20* CREATININE 0.70 0.61 0.76 GLUCOSE 284* 198* 206* CALCIUM 8.1* 8.4 8.0* Recent Labs 11/27/23 0331 11/29/23 0214 11/29/23 1042 WBC 4.2 4.8 5.1 HGB 10.7* 9.4* 10.1* HCT 34.6* 30.2* 32.2* PLT 147 144 152 LYMPHOPCT 23.6 36.4 30.1 MONOPCT 7.8 8.8 8.8 BASOPCT 0.5 0.4 0.6 NEUTROABS 2.7 2.3 2.8 Micro: No results for input(s): "COVID19" in the last 72 hours. 11/23 05/04 blood cx NGTD 11/21 COVID/RSV/Flu negative 11/212 blood cx s hominis, s epi 11/21 04/03 blood cx s hominis, kocuria rosea 11/21 urine cx >100k E coli, >100k Providencia 08/21 blood cx NG 08/01 05/04 blood cx NG 07/31 MRSA PCR negative 07/31 resp cx NG 07/31 pna pcr + coronavirus, rhinovirus 07/29 urine cx normal urogenital gaby 50-90K esbl e coli 07/29 04/03 blood cx ESBL e coli 01/08/2305/04 blood cx NG 01/08/23 urine cx multiple species present 08/04/22 urine cx NG 06/14 1 blood cx CONS 06/11 04/03 blood cx + ESBL e coli 06/10 urine bladder cx anaerobic GPB, skin gaby, ESBL e coli, p mirabilis 06/09 blood cx + ESBL e coli, p mirabilis , 04/03 +CONS Lines: Chronic jose RUE PICC inserted 11/28/23 at 41cm Radiography/Echo/Other: 11/22 CT a/p without contrast 1. Calculus at the level left UPJ measuring approximately 0.7 x 0.9 cm. 11/21 CXR No acute findings 11/21 CT head 1. No acute intracranial findings. 2. Probable chronic ischemic and atrophic changes. Antimicrobials,Start/End Dates: Vancomycin 11/21 - 11/28 Meropenem 11/21 - present Impression: AMS - resolved Complicated UTI dt E coli and Providencia in setting of chronic jose L UPJ calculi s/p cystoscopy and L ureteral stent placement 11/25/23. 2/2 Blood Cx + s hominis - collected from L arm at same time -> likely contaminant Presence of chronic jose for neurogenic bladder Extensive intertrigo and fungal dermatitis H/o obstructive proximal ureteral calculus s/p emergent cysto/L ureteral stent placement 06/10/22 Stent exchange 08/03/22 Stent removal 09/27/23 H/o ESBL e coli bacteremia 05/2022, 07/2023 H/o p mirabilis bacteremia 05/2022 DM Afib on eliquis Prolonged Qtc Tinea pedis and onychomycosis Plan: Maintain meropenem. Plan for 2 week course for L pyelonephritis/complication UTI through 12/07/23. Noted of 2/2 blood cx + s hominis. Both of these blood cultures were collected at the same time from pt's L arm, thus this is functionally / blood cx + CONS. Repeat blood cx NGTD. These results are likely skin contaminant and deemed not clinically significant. GPC on 04/03 blood cx resulted as kocuria rosea, which is also deemed another skin contaminant. (Spoke with micro about results) Can discontinue vancomycin. PICC in place OPAT to be written today and scanned into media tab Stent removal to be scheduled as outpatient with urology after discharge Maintain antifungal powder tos kin folds and upper back for fungal dermatitis and intertrigo Maintain miconazole cream to b/l feet BID x4 weeks for tinea pedis. Monitor infectious parameters ID to follow. OK to next phase of care from ID standpoint. Recommend jose cath exchange this admission if not already done so. D/w Dr Fernandez. Based on diagnoses and management, combination of acute and chronic problems, exacerbations and/or acuity, this visit should be considered to be of moderate complexity. FLOR Denson PA-C Pharmacy to Dose Vancomycin - Progress Note Lab Results Component Value Date CREATININE 0.76 11/29/2023 BUN 20 (H) 11/29/2023 WBC 4.8 11/29/2023 VANCORANDOM 5.9 (L) 06/10/2022 VANCOTROUGH 17.7 11/26/2023 Doses, serum creatinine, and vancomycin levels interfaced automatically to [employer] Systems and data has been analyzed and interpreted. Est CrCl: >100 mL/min (Cockcroft-Gault) Assessment: Current regimen vancomycin 1500 mg every 24 hours Predicted AUC = 498 mg/L*hr (goal 400-600 mg/L*hr) PAUC = 100% (probability that AUC is >400 mg/L*hr) Pconc = 0% (probability that Ctrough is above 20 mcg/mL (toxicity)) Plan: Is the current dose therapeutic? [x] Yes - obtain next level by 12/02 unless predicted AUC is sub-/supra-therapeutic or change in serum creatinine. Trend serum creatinine. Trend AUC using Bayesian Modeling. Orders placed. DATE: 11/29/23 TIME: 8:49 AM Milagros Reveles [facility] Clinical Pharmacist Available via Secure Chat Images from the original note were not included. [facility] - Infectious Diseases Advanced Practice Provider Progress Note Subjective: Following for complicated UTI (e coli, providencia) in setting of recurrently L UPV calculi and non obstructive L renal calculi. Pt underwent cystoscopy, L ureteral stent placement on 11/24. Notes reviewed. Pt resting in bed this AM. States she did not get much sleep overnight d/t loss of IV access and room transport. Denies fever or chills. No abd pain, n/v/d. Objective: Vitals: Patient Vitals for the past 24 hrs: BP Temp Temp src Pulse Resp SpO2 11/28/23 0528 114/80 (!) 35.8 C (96.5 F) Temporal 61 16 97 % 11/28/23 0155 140/73 36.4 C (97.5 F) Temporal 66 18 95 % 11/27/232038 141/61 (!) 35.3 C (95.6 F) Temporal 65 16 93 % 11/27/23 1954 132/99 36 C (96.8 F) Temporal 73 17 95 % Physical Exam Vitals and nursing note reviewed. Constitutional: General: She is not in acute distress. Appearance: She is obese. She is ill-appearing. She is not toxic-appearing or diaphoretic. Comments: Pt lying in bed, NAD. Responds appropriately, conversant. HENT: Head: Normocephalic and atraumatic. Right Ear: External ear normal. Left Ear: External ear normal. Nose: Nose normal. Mouth/Throat: Mouth: Mucous membranes are moist. Pharynx: Oropharynx is clear. No oropharyngeal exudate. Eyes: General: Right eye: No discharge. Left eye: No discharge. Extraocular Movements: Extraocular movements intact. Cardiovascular: Rate and Rhythm: Normal rate and regular rhythm. Pulses: Normal pulses. Heart sounds: Normal heart sounds. No murmur heard. Pulmonary: Effort: Pulmonary effort is normal. No respiratory distress. Breath sounds: Normal breath sounds. No wheezing or rhonchi. Comments: Unlabored effort on room air Abdominal: General: Abdomen is flat. Bowel sounds are normal. There is no distension. Palpations: Abdomen is soft. Tenderness: There is left CVA tenderness. There is no right CVA tenderness. Musculoskeletal: Cervical back: Normal range of motion. No rigidity. Comments: Venous stasis wounds on b/l LE Skin: General: Skin is warm and dry. Coloration: Skin is not jaundiced. Findings: No rash. Neurological: General: No focal deficit present. Mental Status: She is alert and oriented to person, place, and time. Mental status is at baseline. Sensory: No sensory deficit. Motor: Weakness present. Comments: A&Ox4. Psychiatric: Mood and Affect: Mood normal. Behavior: Behavior normal. Thought Content: Thought content normal. Labs: Recent Labs 11/26/23 1236 11/27/23 0121 11/28/23 0545 NA 133* 136 137 K 4.3 4.7 4.9 CL 108* 108* 108* CO2 25 22 23 BUN 22* 23* 20* CREATININE 0.74 0.70 0.61 GLUCOSE 211* 284* 198* CALCIUM 7.7* 8.1* 8.4 Recent Labs 11/26/23 1236 11/27/23 0331 WBC 3.9 4.2 HGB 10.2* 10.7* HCT 31.6* 34.6* PLT 169 147 LYMPHOPCT 27.1 23.6 MONOPCT 9.7 7.8 BASOPCT 0.8 0.5 NEUTROABS 2.2 2.7 Micro: No results for input(s): "COVID19" in the last 72 hours. 11/23 05/04 blood cx NGTD 11/21 COVID/RSV/Flu negative 11/21 05/04 blood cx 05/04 S hominis 11/21 urine cx >100k E coli, >100k Providencia 08/21 blood cx NG 08/01 05/04 blood cx NG 07/31 MRSA PCR negative 07/31 resp cx NG 07/31 pna pcr + coronavirus, rhinovirus 07/29 urine cx normal urogenital gaby 50-90K esbl e coli 07/29 04/03 blood cx ESBL e coli 01/08/2305/04 blood cx NG 01/08/23 urine cx multiple species present 08/04/22 urine cx NG 06/14 04/03 blood cx CONS 06/11 1/2 blood cx + ESBL e coli 06/10 urine bladder cx anaerobic GPB, skin gaby, ESBL e coli, p mirabilis 06/09 blood cx + ESBL e coli, p mirabilis , 12 +CONS Lines: Chronic jose PIV Radiography/Echo/Other: 11/22 CT a/p without contrast 1. Calculus at the level left UPJ measuring approximately 0.7 x 0.9 cm. 11/21 CXR No acute findings 11/21 CT head 1. No acute intracranial findings. 2. Probable chronic ischemic and atrophic changes. Antimicrobials,Start/End Dates: Vancomycin 11/21 - present Meropenem 11/21 - present Impression: AMS - resolved Complicated UTI dt E coli and Providencia in setting of chronic jose L UPJ calculi s/p cystoscopy and L ureteral stent placement 11/25/23. 2/ Blood Cx CoNS - collected from L arm at same time -> likely contaminant Presence of chronic jose for neurogenic bladder Extensive intertrigo and fungal dermatitis H/o obstructive proximal ureteral calculus s/p emergent cysto/L ureteral stent placement 06/10/22 Stent exchange 08/03/22 Stent removal 09/27/23 H/o ESBL e coli bacteremia 05/2022, 07/2023 H/o p mirabilis bacteremia 05/2022 DM Afib on eliquis Prolonged Qtc Tinea pedis and onychomycosis Plan: Maintain meropenem and vancomycin. Noted of 2/2 blood cx + CONS. Both of these blood cultures were collected at the same time from pt's L arm, thus this is functionally 1/1 blood cx + CONS. Repeat blood cx NGTD. The CONS is likely skin contaminant and not clinically significant. However, will continue vancomycin pending further ID of GPC on 12 blood cx. Spoke with micro, still pending ID of GPC, but hopeful to have update later today. Follow repeat blood cx PICC line placed for IV access. Stent removal to be scheduled as outpatient with urology after discharge Maintain antifungal powder tos kin folds and upper back for fungal dermatitis and intertrigo Maintain miconazole cream to b/l feet BID x4 weeks for tinea pedis. Monitor infectious parameters ID to follow Based on diagnoses and management, combination of acute and chronic problems, exacerbations and/or acuity, this visit should be considered to be of moderate complexity. FLOR Denson PA-C Hospitalist Progress Note 11/28/2023 Subjective: Admit Date: 11/22/2023 PCP: Paige Rivera DO Room#: [id number]/[id number] A BRIEF HOSPITAL COURSE: Salazar is a 73 y.o. female with past medical history of atrial fibrillation on Eliquis, T2DM, HTN, HLD, PHOEBE, Dementia, chronic pain syndrome, CKD stage III, H/o obstructive proximal ureteral calulus s/p emergent cysto/L ureteral stent placement 06/10/22- Stent exchange 08/03/22-Stent removal 09/27/23, neurogenic bladder s/p chronic indwelling Jose catheter, obesity. Patient was recently admitted to hospital for septic shock, found to have ESBL UTI with bacteremia. Presents back to the hospital with confusion and lethargy at [facility]. Initial ED workup noted normal renal function, no electrolyte abnormalities. Glucose elevated at 350. Troponin <0.012. WBCS WNL at 7.4. Vital signs note Hypertension - SBP 160-180s. HR in 60s-70s. Pt is afebrile. Initial; Lactic acid elevated at 2.6 - fluids were limited d/t Pt HX of fluid overload. On review of AM noted lactic acid has actually increased to 2.9 , IV fluids were started, home Bumex held. Will admit for further evaluation and management. 11/24: Patient found to have recurrent L UPV calculi and non obstructive L renal calculi. Pt underwent cystoscopy, L ureteral stent placement on 11/24. Found to have complicated UTI d/t Ecoli and Providencia in setting of Jose catheter. 2/2 BC positive for staph hominis, epi. ID following, treating with Meropenem and Vancomycin. Planning for PICC line and tentatively 2 week IV ABX course at discharge. Plan for patient to return to [facility] at discharge. Interval History: Patient seen today. She complains of generalized body pain, she states the oxycodone she chronically takes helps. No complaints of CP or SOB. No abdominal pain, N/V. She was able to eat most of breakfast. No overnight issues. Case and plan discussed with patient and bedside nurse. All questions answered. Adult diet Regular; 4 carb choices (60 gm/meal) 24HR INTAKE/OUTPUT: Intake/Output Summary (Last 24 hours) at 11/28/2023 0955 Last data filed at 11/27/2023 2121 Gross per 24 hour Intake 0 ml Output 950 ml Net -950 ml Past Medical History: Past Medical History: Diagnosis Date A-fib (CMS/HCC) (HCC) Anemia Diabetes (HCC) Lymphedema Obesity LABS: CBC: Recent Labs 11/26/23 1236 11/27/23 0331 WBC 3.9 4.2 RBC 3.16* 3.44* HGB 10.2* 10.7* HCT 31.6* 34.6* MCV 100.0* 100.6* RDW 16.4* 16.0* PLT 169 147 BMP: Recent Labs 11/26/23 1236 11/27/23 0121 11/28/23 0545 NA 133* 136 137 K 4.3 4.7 4.9 CL 108* 108* 108* CO2 25 22 23 BUN 22* 23* 20* CREATININE 0.74 0.70 0.61 GLUCOSE 211* 284* 198* CALCIUM 7.7* 8.1* 8.4 ANIONGAP 0* 6 5 LIVER PROFILE:No results for input(s): "AST", "ALT", "BILITOT", "ALKPHOS", "PROT" in the last 72 hours. No lab exists for component: LABALBU PT/INR: No results for input(s): "PROTIME", "INR" in the last 72 hours. CARDIAC ENZYMES: No results for input(s): "TROPONINI" in the last 72 hours. Procalcitonin: No results found for: PROCAL COVID-19 PCR: No results for input(s): "COVID19" in the last 72 hours. Objective: Vitals: BP 114/80 Pulse 61 Temp (!) 35.8 C (96.5 F) (Temporal) Resp 16 Ht 5' 5" (1.651 m) Wt (!) 342 lb 9.6 oz (155 kg) SpO2 97% BMI 57.01 kg/m Pulse Ox: SpO2 Av % Min: 93 % Max: 97 % Supplemental O2: O2 Flow Rate (L/min): 4 L/min Physical Exam Vitals and nursing note reviewed. Constitutional: Appearance: Obese. HENT: Mouth/Throat: wnl Pharynx: Oropharynx is clear. Eyes: Conjunctiva/sclera: Conjunctivae normal. Cardiovascular: Rate and Rhythm: Normal rate. Heart sounds: No murmur heard. Pulmonary: Effort: Pulmonary effort is normal. No respiratory distress. Breath sounds: No wheezing or rales. Abdominal: General: Bowel sounds are normal. +Jose in place Musculoskeletal: Right lower leg: Edema present. Left lower leg: Edema present. Venous stasis to BLE Skin: General: Skin is warm. Capillary Refill: Capillary refill takes less than 2 seconds. Coloration: Skin is pale. Erythema present Neurological: General: No focal deficit present. Mental Status: She is alert and oriented x2-3 Medications: Scheduled PRN ammonium lactate, , Topical, Daily apixaban, 5 mg, Oral, BID atorvastatin, 20 mg, Oral, Daily baclofen, 5 mg, Oral, TID bumetanide, 1 mg, Oral, BID Diclofenac Sodium, 4 g, Topical, BID donepezil, 10 mg, Oral, Nightly gabapentin, 300 mg, Oral, TID insulin glargine, 30 Units, SubCUTAneous, Nightly insulin lispro, 0-12 Units, SubCUTAneous, TID WC And insulin lispro, 0-12 Units, SubCUTAneous, Nightly insulin lispro, 7 Units, SubCUTAneous, TID WC melatonin, 6 mg, Oral, Nightly meropenem, 2,000 mg, IntraVENous, q8h miconazole, , Topical, BID stomahesive in petrolatum, , Topical, q8h vancomycin, 1,500 mg, IntraVENous, q24h PRN medications: acetaminophen OR acetaminophen, dextrose, dextrose, glucagon (rDNA), glucose, miconazole, naloxone, ondansetron ODT OR ondansetron, oxyCODONE, polyethylene glycol (PEG) 3350, stomahesive in petrolatum Continuous Assessment Data: (CAT1) Reviewed 3 or more notes from different specialty or health system (each=1). (CAT1) Reviewed 3 or more labs/studies ordered by another provider not previously counted (each=1, panels count as 1). (LOW: 2x CAT1 or independent historian MOD: 3x CAT1 or 1x CAT3 EXTENSIVE: 3x CAT1 and 1x CAT3) Acute, acute on chronic, unstable/uncontrolled chronic problems/diagnoses: Sepsis- resolved Acute metabolic encephalopathy in setting of dementia- resolved Complicated UTI likely secondary to chronic indwelling catheter L UPJ calculi s/p cystoscopy and L stent placement 11/24 Positive blood cultures x2- ? Contamination, repeat BC show NGTD Fungal dermatitis Stable chronic problems affecting care, new non-acute diagnoses: Atrial fibrillation on Eliquis [id number] 9.4 Prolonged Qtc Neurogenic bladder s/p Chronic Jose HLD Dementia CKD stage III PHOEBE Hx of HTN Chronic pain syndrome Obesity Plan As a result of the above findings & factors, the following mgmt was pursued: - ID following, remains on Meropenem and Vancomycin. No leukocytosis or fevers, repeat BC show NGTD at 72 hours - Patient lost IV access this AM, planning for PICC line placement with tentative 2 weeks IV ABX at discharge, awaiting final ID plan. - To follow up with Urology in 1-2 weeks for stent removal - Continue antifungal/miconazole powder - Blood sugars minimally improved today, recent A1c 9.4, continue prandial insulin, Lantus, SSI, ADA diet. - Will resume home Bumex dose today - am labs, replace lytes prn - PT/OT/CM/SW - delirium precautions: increase activity and limit nighttime disturbances - DVT prophylaxis: encourage ambulation and already anticoagulated *Updated daughter Deidra over phone Complexity: Acute illness or injury posing a threat to life or body function (HIGH). Risk: Admission to hospital-level care was considered or occurred (HIGH). Advance Directive: DNR-CCA Anticipated Discharge - Date - 11/28 - Location [facility] (Non[facility]Skilled) - Pending the following - PICC placement, final ABX plan Total time spent (which include face to face and non face to face encounters) : 35 minutes Extended Emergency Contact Information Primary Emergency Contact: Deidra Vang Address: [address] [place] [address] [facility] [place] Mobile Relation: Daughter Secondary Emergency Contact: Jesus Vang Mobile Relation: Spouse Preferred language: [place] 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 No ZINA Calderon CNP Division of Hospitalist Medicine [facility] to Dose Vancomycin - Progress Note Lab Results Component Value Date CREATININE 0.61 11/28/2023 BUN 20 (H) 11/28/2023 WBC 4.2 11/27/2023 VANCORANDOM 5.9 (L) 06/10/2022 VANCOTROUGH 17.7 11/26/2023 Doses, serum creatinine, and vancomycin levels interfaced automatically to [employer] and data has been analyzed and interpreted. Infectious Diagnosis: SSTI, UTI Est CrCl: >80 mL/min (Cockcroft-Gault) Assessment: Current regimen vancomycin 1500 mg every 24 hours (9.7 mg/kg) Predicted AUC = 440 mg/L*hr (goal 400-600 mg/L*hr) PAUC = 85% (probability that AUC is >400 mg/L*hr) Pconc = 0% (probability that Ctrough is above 20 mcg/mL (toxicity)) Plan: Is the current dose therapeutic? [x] Yes - obtain next level on 12/04/23 unless predicted AUC is sub-/supra-therapeutic or change in serum creatinine. [] No Trend serum creatinine. Trend AUC using Bayesian Modeling. Orders placed. DATE: 11/28/23 TIME: 9:27 AM Anne Gaston RPh Clinical Pharmacist Available via Secure Chat Images from the original note were not included. [facility] Wound Care Progress Note Salazar Coyle AGE: 73 y.o. GENDER: female : 1950 Subjective: HISTORY of PRESENT ILLNESS HPI Salazar Coyle is a 73 y.o. female who presents for a wound care follow up. HPI: 73 y.o. female with past medical history below who presents with chief complaint listed above. Pt Hx significant for A-fib on Eliquis, DMII, morbid obesity. Has been admitted 07/30/2023 for septic shock, found at that time to have ESBL UTI w/ bacteremia. Per documentation Pt reportedly less responsive, more confused at nursing facility. Wound Care consulted for "Pressure injury, skin tear". Patient resting in TCB bed at time of visit. Treatment completed. Patient denies any needs. PAST MEDICAL HISTORY Past Medical History: Diagnosis Date A-fib (CMS/HCC) (HCC) Anemia Diabetes (HCC) Lymphedema Obesity PAST SURGICAL HISTORY Past Surgical History: Procedure Laterality Date URETEROSCOPY Left 09/27/2023 Cytoscopy, left ureteral stent removal , left flexible ureteroscopic laser lithotripsy. [place] FAMILY HISTORY No family history on file. SOCIAL HISTORY Social History Tobacco Use Smoking status: Never Smokeless tobacco: Never Vaping Use Vaping status: Never Used Substance Use Topics Alcohol use: Never Drug use: Never ALLERGIES Allergies Allergen Reactions Ertapenem Patient tolerated July 2022 Tolerated meropenem August 2023 MEDICATIONS No current facility-administered medications on file prior to encounter. Current Outpatient Medications on File Prior to Encounter Medication Sig Dispense Refill acetaminophen (Tylenol) 325 MG tablet Take 325 mg by mouth 3 times daily. apixaban (Eliquis) 5 MG tablet Take 5 mg by mouth 2 times daily. ascorbic acid (Vitamin C) 250 MG tablet Take 250 mg by mouth daily. atorvastatin (Lipitor) 20 MG tablet Take 20 mg by mouth daily. baclofen (Lioresal) 5 MG tablet Take 1 tablet by mouth 3 times daily. bumetanide (Bumex) 1 MG tablet Take 1 tablet (1 mg) by mouth in the morning and 1 tablet (1 mg) in the evening. 60 tablet 2 Calcium Carbonate-Vitamin D (Oyster Shell Calcium/D) 500-5 MG-MCG tablet Take 1 tablet by mouth daily. Diclofenac Sodium (Voltaren) 1 % gel Apply 4 g topically 2 times daily. 50 g 1 donepezil (Aricept) 10 MG tablet Take 10 mg by mouth Nightly. gabapentin (Neurontin) 100 MG capsule Take 3 capsules (300 mg) by mouth 3 times daily. 180 capsule 2 insulin glargine (Lantus) 100 UNIT/ML injection Inject 30 Units under the skin Nightly. 9 mL 0 Insulin Lispro (Humalog) 100 UNIT/ML solution injection Inject 5 Units under the skin in the morning and 5 Units at noon and 5 Units in the evening. Inject with meals. 10 mL 2 nystatin (Mycostatin) 011047 UNIT/GM powder oxyCODONE (Oxy-IR) 5 MG immediate release capsule Take 5 mg by mouth. senna-docusate ([place]-Colace) 8.6-50 MG tablet Take 100 tablets by mouth Every 24 hours. sertraline (Zoloft) 50 MG tablet Take 50 mg by mouth daily. REVIEW OF SYSTEMS Pertinent items are noted in HPI. Objective: BP 114/80 Pulse 61 Temp (!) 35.8 C (96.5 F) (Temporal) Resp 16 Ht 1.651 m (5' 5") Wt (!) 155 kg (342 lb 9.6 oz) SpO2 97% BMI 57.01 kg/m PHYSICAL EXAM General appearance: in no apparent distress, well developed and well nourished, and alert, obese Skin: warm and dry, pink rash noted to all skin folds Pulmonary: Normal effort, no respiratory distress, no cyanosis Bilateral lower legs: No openings. No drainage. Edema present. Stable Photo: 11/26/23 Left breast: [place] rash noted to area. No openings. No drainage. Stable Photo: 11/26/23 Bilateral buttocks: Tissue wet and moist. Small excoriation noted. No drainage. Stable Photo: 11/26/23 LABS CBC: Lab Results Component Value Date WBC 4.2 11/27/2023 HGB 10.7 (L) 11/27/2023 HCT 34.6 (L) 11/27/2023 MCV 100.6 (H) 11/27/2023 PLT 147 11/27/2023 BMP: Lab Results Component Value Date NA 137 11/28/2023 K 4.9 11/28/2023 CL 108 (H) 11/28/2023 CO2 23 11/28/2023 BUN 20 (H) 11/28/2023 CREATININE 0.61 11/28/2023 PT/INR: No results found for: "PROTIME", "INR" Prealbumin: No results found for: PREALBUMIN Albumin:No components found for: LABALBU Sed Rate:No results found for: SEDRATE Micro: No components found for: "BC" Assessment/Plan: Bilateral lower legs: Venous stasis dermatitis - Clean with Hibiclens, apply Lac-hydrin then leave SPRINKLING SYSTEM IRRIGATOR daily Left breast: Fungal dermatitis - Clean with soap and water, dry well, Miconazole powder BID and PRN Bilateral buttocks: MASD (bodily fluids) -Clean with soap and water, apply ET mix then leave SPRINKLING SYSTEM IRRIGATOR TID and PRN Abdomen folds, bilateral knee folds: Fungal dermatitis - Clean with soap and water, dry well, Miconazole powder BID and PRN TCB bed Reposition q2hrs Incontinent checks q2hrs Nutritional support Wound Care to follow Recommend to follow up at [facility] Outpatient wound care center after hospital discharge. Any questions or concerns please secure chat "ACH wound/ostomy". Thank you for the consult! I personally obtained the arias and critical portions of the history and physical exam. I reviewed the labs, imaging studies, and electronic medical record. I reviewed the chart documentation and discussed the patient with treatment team members. I have edited the note to reflect my clinical findings and my assessment and plan. Please note, the time of this note does not reflect the time I saw this patient today, but the time of this documentaton. Portions of this note including HPI, ROS, impression/plan, and examination may have been copied forward from admission to today as to provide important historical information essential in contributing to medical decision making. Documentation has been reviewed and edited as necessary to support clinical decision making for today's visit and to reflect my own independent evaluation of this patient. Decision making for today's visit and to reflect my own independent evaluation of this patient. Hospitalist Progress Note 11/27/2023 Subjective: Admit Date: 11/22/2023 PCP: Paige Rivera DO Room#: [id number] A BRIEF HOSPITAL COURSE: Salazar is a 73 y.o. female with past medical history of atrial fibrillation on Eliquis, T2DM, HTN, HLD, PHOEBE, Dementia, chronic pain syndrome, CKD stage III, H/o obstructive proximal ureteral calulus s/p emergent cysto/L ureteral stent placement 06/10/22- Stent exchange 08/03/22-Stent removal 09/27/23, neurogenic bladder s/p chronic indwelling Jose catheter, obesity. Patient was recently admitted to hospital for septic shock, found to have ESBL UTI with bacteremia. Presents back to the hospital with confusion and lethargy at [facility]. Initial ED workup noted normal renal function, no electrolyte abnormalities. Glucose elevated at 350. Troponin <0.012. WBCS WNL at 7.4. Vital signs note Hypertension - SBP 160-180s. HR in 60s-70s. Pt is afebrile. Initial; Lactic acid elevated at 2.6 - fluids were limited d/t Pt HX of fluid overload. On review of AM noted lactic acid has actually increased to 2.9 - will start fluids now w/ close monitoring. Home Bumex dose held. Will admit for further evaluation and management. 11/24: Recurrent L UPV calculi and non obstructive L renal calculi. Pt underwent cystoscopy, L ureteral stent placement. Found to have complicated UTI d/t Ecoli and Providencia in setting of Jose catheter. 05/04 BC positive for staph hominis, epi. ID following, treating with Meropenem and Vancomycin. Interval History: Patient seen today. She complains of generalized pain, asking for oxycodone. No CP or SOB. No abdominal pain, nausea, vomiting. She ate breakfast without issues. No overnight issues. Case and plan discussed with patient and bedside nurse. All questions answered. Adult diet Regular; 4 carb choices (60 gm/meal) 24HR INTAKE/OUTPUT: Intake/Output Summary (Last 24 hours) at 11/27/2023 1134 Last data filed at 11/27/2023 0300 Gross per 24 hour Intake 1435 ml Output 1500 ml Net -65 ml Past Medical History: Past Medical History: Diagnosis Date A-fib (CMS/HCC) (HCC) Anemia Diabetes (HCC) Lymphedema Obesity LABS: CBC: Recent Labs 11/25/23 0532 11/26/23 1236 11/27/23 0331 WBC 3.4* 3.9 4.2 RBC 3.06* 3.16* 3.44* HGB 9.5* 10.2* 10.7* HCT 30.5* 31.6* 34.6* MCV 99.7* 100.0* 100.6* RDW 16.3* 16.4* 16.0* PLT 119* 169 147 BMP: Recent Labs 11/25/23 0532 11/26/23 1236 11/27/23 0121 NA 135 133* 136 K 3.9 4.3 4.7 CL 107 108* 108* CO2 27 25 22 BUN 22* 22* 23* CREATININE 0.80 0.74 0.70 GLUCOSE 230* 211* 284* CALCIUM 7.6* 7.7* 8.1* ANIONGAP 1* 0* 6 LIVER PROFILE: Recent Labs 11/25/23 0532 AST 21 ALT 13 BILITOT 0.4 ALKPHOS 62 PROT 5.2* PT/INR: No results for input(s): "PROTIME", "INR" in the last 72 hours. CARDIAC ENZYMES: No results for input(s): "TROPONINI" in the last 72 hours. Procalcitonin: No results found for: PROCAL COVID-19 PCR: No results for input(s): "COVID19" in the last 72 hours. Objective: Vitals: BP 155/60 (BP Location: Right arm, Patient Position: Lying) Pulse 73 Temp (!) 35.9 C (96.7 F) (Temporal) Resp 16 Ht 5' 5" (1.651 m) Wt (!) 342 lb 9.6 oz (155 kg) SpO2 95% BMI 57.01 kg/m Pulse Ox: SpO2 Av.5 % Min: 92 % Max: 95 % Supplemental O2: O2 Flow Rate (L/min): 4 L/min Physical Exam Physical Exam Vitals and nursing note reviewed. Constitutional: Appearance: Obese. HENT: Mouth/Throat: wnl Pharynx: Oropharynx is clear. Eyes: Conjunctiva/sclera: Conjunctivae normal. Cardiovascular: Rate and Rhythm: Normal rate. Heart sounds: No murmur heard. Pulmonary: Effort: Pulmonary effort is normal. No respiratory distress. Breath sounds: No wheezing or rales. Abdominal: General: Bowel sounds are normal. +Jose in place Musculoskeletal: Right lower leg: Edema present. Left lower leg: Edema present. Venous stasis to BLE Skin: General: Skin is warm. Capillary Refill: Capillary refill takes less than 2 seconds. Coloration: Skin is pale. Erythema present Neurological: General: No focal deficit present. Mental Status: She is alert Medications: Scheduled PRN ammonium lactate, , Topical, Daily apixaban, 5 mg, Oral, BID atorvastatin, 20 mg, Oral, Daily baclofen, 5 mg, Oral, TID [Held by provider] bumetanide, 1 mg, Oral, BID Diclofenac Sodium, 4 g, Topical, BID donepezil, 10 mg, Oral, Nightly gabapentin, 300 mg, Oral, TID insulin glargine, 30 Units, SubCUTAneous, Nightly insulin lispro, 0-12 Units, SubCUTAneous, TID WC And insulin lispro, 0-12 Units, SubCUTAneous, Nightly insulin lispro, 7 Units, SubCUTAneous, TID WC melatonin, 6 mg, Oral, Nightly meropenem, 2,000 mg, IntraVENous, q8h miconazole, , Topical, BID stomahesive in petrolatum, , Topical, q8h vancomycin, 1,500 mg, IntraVENous, q24h PRN medications: acetaminophen OR acetaminophen, dextrose, dextrose, glucagon (rDNA), glucose, miconazole, naloxone, ondansetron ODT OR ondansetron, oxyCODONE, polyethylene glycol (PEG) 3350, stomahesive in petrolatum Continuous Assessment Data: (CAT1) Reviewed 3 or more notes from different specialty or health system (each=1). (CAT1) Reviewed 3 or more labs/studies ordered by another provider not previously counted (each=1, panels count as 1). (LOW: 2x CAT1 or independent historian MOD: 3x CAT1 or 1x CAT3 EXTENSIVE: 3x CAT1 and 1x CAT3) Acute, acute on chronic, unstable/uncontrolled chronic problems/diagnoses: Sepsis- resolved Acute metabolic encephalopathy in setting of dementia Complicated UTI likely secondary to chronic indwelling catheter L UPJ calculi s/p cystoscopy and L stent placement 11/24 Positive blood cultures x2- ? Contamination Fungal dermatitis Stable chronic problems affecting care, new non-acute diagnoses: Atrial fibrillation on Eliquis [id number] 9.4 Prolonged Qtc Neurogenic bladder s/p Chronic Jose HLD Dementia CKD stage III PHOEBE Hx of HTN Chronic pain syndrome Obesity Plan As a result of the above findings & factors, the following mgmt was pursued: - Mentation appears to be at baseline - ID following, remains on Meropenem and Vancomycin - Repeat BC pending, felt possible contamination, ID recommending to remain on Vancomycin until BC resulted given GPC on 1/2 initial BC - May need PICC line for ECF - To follow up with Urology in 1-2 weeks for stent removal - Continue antifungal/miconazole powder - Blood sugars remain elevated, will increase prandial insulin to , continue Lantus, SSI, ADA. Recent A1c 9.4 - Bumex remains on hold, kidney function stable at baseline, will assess to resume Bumex in AM - am labs, replace lytes prn - PT/OT/CM/SW - delirium precautions: increase activity and limit nighttime disturbances - DVT prophylaxis: encourage ambulation and already anticoagulated Complexity: Acute illness or injury posing a threat to life or body function (HIGH). Risk: Admission to hospital-level care was considered or occurred (HIGH). 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 No ZINA Calderon CNP Division of Hospitalist Medicine [facility] Images from the original note were not included. [facility] - Infectious Diseases Advanced Practice Provider Progress Note Subjective: Following for complicated UTI (e coli, providencia) in setting of recurrently L UPV calculi and non obstructive L renal calculi. Pt underwent cystoscopy, L ureteral stent placement on 11/24. Notes reviewed. Pt resting in bed this AM. More awake today. Still with L flank pain, unchanged compared to yesterday. Denies fever, chills, n/v/d. Otherwise, no new alleviating or exacerbating factors. Objective: Vitals: Patient Vitals for the past 24 hrs: BP Temp Temp src Pulse Resp SpO2 Height 11/27/23 0745 155/60 (!) 35.9 C (96.7 F) Temporal 73 16 95 % -- 11/26/23 1930 98/78 36.6 C (97.8 F) Temporal 67 16 92 % -- 11/26/23 1351 -- -- -- -- -- -- 1.651 m (5' 5") Physical Exam Vitals and nursing note reviewed. Constitutional: General: She is not in acute distress. Appearance: She is obese. She is ill-appearing. She is not toxic-appearing or diaphoretic. Comments: Pt resting in bed, easily awakens. NAD. Responds appropriately, conversant. HENT: Head: Normocephalic and atraumatic. Right Ear: External ear normal. Left Ear: External ear normal. Nose: Nose normal. Mouth/Throat: Mouth: Mucous membranes are moist. Pharynx: Oropharynx is clear. No oropharyngeal exudate. Eyes: General: Right eye: No discharge. Left eye: No discharge. Extraocular Movements: Extraocular movements intact. Cardiovascular: Rate and Rhythm: Normal rate and regular rhythm. Pulses: Normal pulses. Heart sounds: Normal heart sounds. No murmur heard. Pulmonary: Effort: Pulmonary effort is normal. No respiratory distress. Breath sounds: Normal breath sounds. No wheezing or rhonchi. Comments: Unlabored effort on room air Abdominal: General: Abdomen is flat. Bowel sounds are normal. There is no distension. Palpations: Abdomen is soft. Tenderness: There is left CVA tenderness. There is no right CVA tenderness. Comments: L CVA tenderness improved compared to 11/25. Genitourinary: Comments: Jose with clear yellow urine Musculoskeletal: General: Normal range of motion. Cervical back: Normal range of motion. No rigidity. Right lower leg: Edema present. Left lower leg: Edema present. Comments: Venous stasis wounds on b/l LE Skin: General: Skin is warm and dry. Coloration: Skin is not jaundiced. Findings: Erythema present. No lesion or rash. Comments: Intertrigo of abd folds, erythema improved in skin folds. Neurological: General: No focal deficit present. Mental Status: She is alert and oriented to person, place, and time. Mental status is at baseline. Sensory: No sensory deficit. Motor: Weakness present. Psychiatric: Mood and Affect: Mood normal. Behavior: Behavior normal. Thought Content: Thought content normal. Labs: Recent Labs 11/25/23 0532 11/26/23 1236 11/27/23 0121 NA 135 133* 136 K 3.9 4.3 4.7 CL 107 108* 108* CO2 BUN 22* 22* 23* CREATININE 0.80 0.74 0.70 GLUCOSE 230* 211* 284* CALCIUM 7.6* 7.7* 8.1* PROT 5.2* -- -- BILITOT 0.4 -- -- ALKPHOS 62 -- -- AST 21 -- -- ALT 13 -- -- Recent Labs 11/25/23 0532 11/26/23 1236 11/27/23 0331 WBC 3.4* 3.9 4.2 HGB 9.5* 10.2* 10.7* HCT 30.5* 31.6* 34.6* PLT 119* 169 147 LYMPHOPCT -- 27.1 23.6 MONOPCT -- 9.7 7.8 BASOPCT -- 0.8 0.5 NEUTROABS -- 2.2 2.7 Micro: No results for input(s): "COVID19" in the last 72 hours. 11/23 05/04 blood cx NGTD 11/21 COVID/RSV/Flu negative 11/21 05/04 blood cx 05/04 S hominis 11/21 urine cx >100k E coli, >100k Providencia 08/21 blood cx NG 08/01 05/04 blood cx NG 07/31 MRSA PCR negative 07/31 resp cx NG 07/31 pna pcr + coronavirus, rhinovirus 07/29 urine cx normal urogenital gaby 50-90K esbl e coli 07/29 04/03 blood cx ESBL e coli 01/08/2305/04 blood cx NG 01/08/23 urine cx multiple species present 08/04/22 urine cx NG 06/14 04/03 blood cx CONS 06/11 04/03 blood cx + ESBL e coli 06/10 urine bladder cx anaerobic GPB, skin gaby, ESBL e coli, p mirabilis 06/09 blood cx + ESBL e coli, p mirabilis , 1/2 +CONS Lines: Chronic jose PIV Radiography/Echo/Other: 11/22 CT a/p without contrast 1. Calculus at the level left UPJ measuring approximately 0.7 x 0.9 cm. 11/21 CXR No acute findings 11/21 CT head 1. No acute intracranial findings. 2. Probable chronic ischemic and atrophic changes. Antimicrobials,Start/End Dates: Vancomycin 11/21 - present Meropenem 11/21 - present Impression: AMS - resolved Complicated UTI dt E coli and Providencia in setting of chronic jose L UPJ calculi s/p cystoscopy and L ureteral stent placement 11/25/23. 2/2 Blood Cx CoNS - collected from L arm at same time -> likely contaminant Presence of chronic jose for neurogenic bladder Extensive intertrigo and fungal dermatitis H/o obstructive proximal ureteral calculus s/p emergent cysto/L ureteral stent placement 06/10/22 Stent exchange 08/03/22 Stent removal 09/27/23 H/o ESBL e coli bacteremia 05/2022, 07/2023 H/o p mirabilis bacteremia 05/2022 DM Afib on eliquis Prolonged Qtc Tinea pedis and onychomycosis Plan: Maintain meropenem and vancomycin. Noted of 2/2 blood cx + CONS. Both of these blood cultures were collected at the same time from pt's L arm, thus this is functionally 1/1 blood cx + CONS. Repeat blood cx NGTD. The CONS is likely skin contaminant and not clinically significant. However, will continue vancomycin pending further ID of GPC on 1/2 blood cx. Follow repeat blood cx Stent removal to be scheduled as outpatient with urology after discharge Maintain antifungal powder tos kin folds and upper back for fungal dermatitis and intertrigo Maintain miconazole cream to b/l feet BID x4 weeks for tinea pedis. Monitor infectious parameters ID to follow Based on diagnoses and management, combination of acute and chronic problems, exacerbations and/or acuity, this visit should be considered to be of moderate complexity. FLOR Denson PA-C Images from the original note were not included. [facility] Wound Care Progress Note Salazar Coyle AGE: 73 y.o. GENDER: female : 1950 Subjective: HISTORY of PRESENT ILLNESS HPI Salazar Coyle is a 73 y.o. female who presents for a wound care follow up. HPI: 73 y.o. female with past medical history below who presents with chief complaint listed above. Pt Hx significant for A-fib on Eliquis, DMII, morbid obesity. Has been admitted 07/30/2023 for septic shock, found at that time to have ESBL UTI w/ bacteremia. Per documentation Pt reportedly less responsive, more confused at nursing facility. Wound Care consulted for "Pressure injury, skin tear". Patient resting in bed at time of visit. PAST MEDICAL HISTORY Past Medical History: Diagnosis Date A-fib (CMS/HCC) (HCC) Anemia Diabetes (HCC) Lymphedema Obesity PAST SURGICAL HISTORY Past Surgical History: Procedure Laterality Date URETEROSCOPY Left 09/27/2023 Cytoscopy, left ureteral stent removal , left flexible ureteroscopic laser lithotripsy. [place] FAMILY HISTORY No family history on file. SOCIAL HISTORY Social History Tobacco Use Smoking status: Never Smokeless tobacco: Never Vaping Use Vaping status: Never Used Substance Use Topics Alcohol use: Never Drug use: Never ALLERGIES Allergies Allergen Reactions Ertapenem Patient tolerated July 2022 Tolerated meropenem August 2023 MEDICATIONS No current facility-administered medications on file prior to encounter. Current Outpatient Medications on File Prior to Encounter Medication Sig Dispense Refill acetaminophen (Tylenol) 325 MG tablet Take 325 mg by mouth 3 times daily. apixaban (Eliquis) 5 MG tablet Take 5 mg by mouth 2 times daily. ascorbic acid (Vitamin C) 250 MG tablet Take 250 mg by mouth daily. atorvastatin (Lipitor) 20 MG tablet Take 20 mg by mouth daily. baclofen (Lioresal) 5 MG tablet Take 1 tablet by mouth 3 times daily. bumetanide (Bumex) 1 MG tablet Take 1 tablet (1 mg) by mouth in the morning and 1 tablet (1 mg) in the evening. 60 tablet 2 Calcium Carbonate-Vitamin D (Oyster Shell Calcium/D) 500-5 MG-MCG tablet Take 1 tablet by mouth daily. Diclofenac Sodium (Voltaren) 1 % gel Apply 4 g topically 2 times daily. 50 g 1 donepezil (Aricept) 10 MG tablet Take 10 mg by mouth Nightly. gabapentin (Neurontin) 100 MG capsule Take 3 capsules (300 mg) by mouth 3 times daily. 180 capsule 2 insulin glargine (Lantus) 100 UNIT/ML injection Inject 30 Units under the skin Nightly. 9 mL 0 Insulin Lispro (Humalog) 100 UNIT/ML solution injection Inject 5 Units under the skin in the morning and 5 Units at noon and 5 Units in the evening. Inject with meals. 10 mL 2 nystatin (Mycostatin) 705941 UNIT/GM powder oxyCODONE (Oxy-IR) 5 MG immediate release capsule Take 5 mg by mouth. senna-docusate ([place]-Colace) 8.6-50 MG tablet Take 100 tablets by mouth Every 24 hours. sertraline (Zoloft) 50 MG tablet Take 50 mg by mouth daily. REVIEW OF SYSTEMS Pertinent items are noted in HPI. Objective: BP 155/60 (BP Location: Right arm, Patient Position: Lying) Pulse 73 Temp (!) 35.9 C (96.7 F) (Temporal) Resp 16 Ht 1.651 m (5' 5") Wt (!) 155 kg (342 lb 9.6 oz) SpO2 95% BMI 57.01 kg/m PHYSICAL EXAM General appearance: in no apparent distress, well developed and well nourished, and alert, obese Skin: warm and dry, pink rash noted to all skin folds Pulmonary: Normal effort, no respiratory distress, no cyanosis Bilateral lower legs: No openings. No drainage. Edema present. Stable Photo: 11/26/23 Left breast: [place] rash noted to area. No openings. No drainage. Stable Photo: 11/26/23 Bilateral buttocks: Tissue wet and moist. Small excoriation noted. No drainage. Stable Photo: 11/26/23 LABS CBC: Lab Results Component Value Date WBC 4.2 11/27/2023 HGB 10.7 (L) 11/27/2023 HCT 34.6 (L) 11/27/2023 MCV 100.6 (H) 11/27/2023 PLT 147 11/27/2023 BMP: Lab Results Component Value Date NA 136 11/27/2023 K 4.7 11/27/2023 CL 108 (H) 11/27/2023 CO2 22 11/27/2023 BUN 23 (H) 11/27/2023 CREATININE 0.70 11/27/2023 PT/INR: No results found for: "PROTIME", "INR" Prealbumin: No results found for: PREALBUMIN Albumin:No components found for: LABALBU Sed Rate:No results found for: SEDRATE Micro: No components found for: "BC" Assessment/Plan: Bilateral lower legs: Venous stasis dermatitis - Clean with Hibiclens, apply Lac-hydrin then leave SPRINKLING SYSTEM IRRIGATOR daily Left breast: Fungal dermatitis - Clean with soap and water, dry well, Miconazole powder BID and PRN Bilateral buttocks: MASD (bodily fluids) -Clean with soap and water, apply ET mix then leave LINDSEY TID and PRN Abdomen folds, bilateral knee folds: Fungal dermatitis - Clean with soap and water, dry well, Miconazole powder BID and PRN TCB bed Reposition q2hrs Incontinent checks q2hrs Nutritional support Wound Care to follow Recommend to follow up at [facility] Outpatient wound care center after hospital discharge. Any questions or concerns please secure chat "ACH wound/ostomy". Thank you for the consult! I personally obtained the arias and critical portions of the history and physical exam. I reviewed the labs, imaging studies, and electronic medical record. I reviewed the chart documentation and discussed the patient with treatment team members. I have edited the note to reflect my clinical findings and my assessment and plan. Please note, the time of this note does not reflect the time I saw this patient today, but the time of this documentaton. Portions of this note including HPI, ROS, impression/plan, and examination may have been copied forward from admission to today as to provide important historical information essential in contributing to medical decision making. Documentation has been reviewed and edited as necessary to support clinical decision making for today's visit and to reflect my own independent evaluation of this patient. Decision making for today's visit and to reflect my own independent evaluation of this patient. Pharmacy to Dose Vancomycin - Progress Note Lab Results Component Value Date CREATININE 0.70 11/27/2023 BUN 23 (H) 11/27/2023 WBC 4.2 11/27/2023 VANCORANDOM 5.9 (L) 06/10/2022 VANCOTROUGH 17.7 11/26/2023 Doses, serum creatinine, and vancomycin levels interfaced automatically to [employer] Systems and data has been analyzed and interpreted. Infectious Diagnosis: SSTI/UTI Est CrCl: 105 mL/min (Cockcroft-Gault) Assessment: Current regimen vancomycin 1500 mg every 24 hours (9.7 mg/kg) Predicted AUC = 498 mg/L*hr (goal 400-600 mg/L*hr) PAUC = 100% (probability that AUC is >400 mg/L*hr) Pconc = 0% (probability that Ctrough is above 20 mcg/mL (toxicity)) Plan: Is the current dose therapeutic? [x] Yes - obtain next level on 11/27 unless predicted AUC is sub-/supra-therapeutic or change in serum creatinine. Trend serum creatinine. Trend AUC using Bayesian Modeling. Orders placed. DATE: 11/27/23 TIME: 7:43 AM Duc Hampton PharmD Clinical Pharmacist Available via Secure Chat [facility] Respiratory Care Department Progress Note Comment or reasoning for refusal: Patient was seen in attempts to fulfill CPAP/BiPAP/AutoPAP order. Patient refused PAP therapy/study at this time. Patient was educated on medical need and reasoning for physician order to ensure patient was making an informed medical decision. All of the patient's questions were answered at this time and patient was informed that if the patient changes their mind regarding wearing PAP to hit their "call light" or inform their nurse to contact Respiratory. A second, consecutive night of refusing PAP therapy/study results in order completion in the EMR. If future CPAP/BiPAP/AutoPAP therapy or study is indicated please place another order in the EMR and the assigned Respiratory Therapist will reattempt to fulfill orders. Thank you for involving Respiratory in the care of this patient, Disregard DC. Prescriber messaged and said they are waiting for level. Pharmacy to Dose Vancomycin - Progress Note Lab Results Component Value Date CREATININE 0.74 11/26/2023 BUN 22 (H) 11/26/2023 WBC 3.9 11/26/2023 VANCORANDOM 5.9 (L) 06/10/2022 VANCOTROUGH 17.7 11/26/2023 Doses, serum creatinine, and vancomycin levels interfaced automatically to [employer] Systems and data has been analyzed and interpreted. Infectious Diagnosis: SSTI/UTI Est CrCl: 99.8 mL/min (Cockcroft-Gault) Assessment: Current regimen vancomycin 1500 mg every 18 hours (9.7 mg/kg) Predicted AUC = 661 mg/L*hr (goal 400-600 mg/L*hr) PAUC = 100% (probability that AUC is >400 mg/L*hr) Pconc = 58% (probability that Ctrough is above 20 mcg/mL (toxicity)) Plan: Is the current dose therapeutic? [x] No - change current regimen to vancomycin 1500 mg every 24 hours (9.7 mg/kg) for predicted AUC 520 mg/L*hr, PAUC = 100% , and Pconc* = 1%. Obtain next level on 11/27. Trend serum creatinine. Trend AUC using Bayesian Modeling. Orders placed. DATE: 11/26/23 TIME: 2:02 PM Duc Hampton PharmD Clinical Pharmacist Available via Secure Chat Nutrition Assessment Type and Reason for Visit: Initial (diet battery service technician referral- uncontrolled diabetes) Nutrition Recommendations/Plan: Current diet is regular. Per MNT protocol will add 4 CHO choices (60 gm/meal) to assist with BG management. Please document % of meals consumed daily on flow sheets. Monitor weight, labs, I/O, skin assessment, BM, and overall nutritional status. RD will follow up weekly. Malnutrition Assessment: Malnutrition Status: At risk for malnutrition (Comment) Context: Acute Illness Findings of the 6 clinical characteristics of malnutrition: Energy Intake: No significant decrease in energy intake (Patient seems to be a picky eater when it comes to menu choices.) Weight Loss: Unable to assess (Weights vary in Epic: 06/19/22 320# and 350# estimated on 07/30/23 and 350# stated on 09/27/23) Body Fat Loss: No significant body fat loss Muscle Mass Loss: No significant muscle mass loss Fluid Accumulation: Moderate to Severe Extremities Dry Cleaning Manager Strength: Not Performed Nutrition Assessment: PMH includes: a fib on Eliquis, anemia, DM, lymphedema, obesity who presented with altered mental status. Pt reportedly less responsive and more confused at nursing facility. Initial ED workup noted normal renal function, no electrolyte abnormalities. Glucose elevated at 350. Troponin <0.012. WBCS WNL at 7.4. Vital signs note Hypertension - SBP 160-180s. HR in 60s-70s. Urology is following for urosepsis and L UPJ calculus. Underwent cystoscopy with Left ureteral stent on 11/24. ID is managing antibiotics. RD spoke with patient this afternoon. She reports her appetite has been good. She consumed meatloaf, mashed potatoes, and broccoli for lunch. RN wrote food likes/dislikes on board in room. RD relayed this to diet office and also resumed room service assist. Per paperwork from [facility]- diet order: no added salt, low concentrated sweets, regular texture, thin liquids with 1 milk per meal and yogurt at lunch and dinner. Dislikes coffee and pork. Likes milk, banana bread, blueberry muffin, peaches, pudding, ice cream, meatloaf with gravy, mashed potatoes, sweet potatoes, broccoli, oatmeal, and cream of wheat. Estimated Daily Nutrient Needs: Energy Requirements Based On: Kcal/kg Weight Used for Energy Requirements: [place] Weight for Energy Calculation (kg): 57 kg Total Energy Requirements (kcals/day): 0248-3650 kcals per day (25-28) Weight Used for Protein Requirements: [place] Weight in Kg Used for Protein Requirements: 57 kg Estimated Total Protein (g/day): 68-80 gm per day (1.2-1.4) Estimated Daily Total Fluid (ml/day): Per MD Nutrition Related Findings: Alex = 12, abdomen soft, rounded, missing teeth, BM on 11/25, moderate BUE edema, + 2 BLE edema, I/O: -9.7 Wound Type: (1. Bilateral lower legs: Venous stasis dermatitis 2. Left breast: Fungal dermatitis 3. Bilateral buttocks: MASD (bodily fluids) 4. Abdomen folds, bilateral knee folds: Fungal dermatitis) BMP: Recent Labs 11/24/23 0021 11/25/23 0532 11/26/23 1236 NA 137 135 133* K 4.1 3.9 4.3 CL 107 107 108* CO2 27 27 25 BUN 25* 22* 22* CREATININE 0.81 0.80 0.74 GLUCOSE 319* 230* 211* CALCIUM 7.9* 7.6* 7.7* HEPATIC: Recent Labs 11/24/23 0021 11/25/23 0532 AST 22 21 ALT 15 13 BILITOT 0.5 0.4 ALKPHOS 68 62 Lab Results Component Value Date HGBA1C 9.4 (H) 11/23/2023 Medications: [START ON 11/27/2023] ammonium lactate, , Topical, Daily apixaban, 5 mg, Oral, BID atorvastatin, 20 mg, Oral, Daily baclofen, 5 mg, Oral, TID [Held by provider] bumetanide, 1 mg, Oral, BID Diclofenac Sodium, 4 g, Topical, BID donepezil, 10 mg, Oral, Nightly gabapentin, 300 mg, Oral, TID insulin glargine, 30 Units, SubCUTAneous, Nightly insulin lispro, 0-12 Units, SubCUTAneous, TID WC And insulin lispro, 0-12 Units, SubCUTAneous, Nightly Insulin Lispro, 5 Units, SubCUTAneous, TID WC melatonin, 6 mg, Oral, Nightly meropenem, 2,000 mg, IntraVENous, q8h miconazole, , Topical, BID stomahesive in petrolatum, , Topical, q8h vancomycin, 1,500 mg, IntraVENous, q24h Current Nutrition Therapies: Adult diet Regular Current Oral Intake Average Meal Intake: 76-100% Average Supplements Intake: None Ordered Anthropometric Measures: Height: 165.1 cm (5' 5") Current Body Weight: 155 kg (342 lb) (11/24/23) Weight Source: Bed Scale Admission Body Weight: 181 kg (400 lb) (estimated on 11/22/23) [place] Body Weight (lbs) (Calculated): 125 lbs [place] Body Weight (Kg) (Calculated): 57 kg % [place] Body Weight (Calculated): 273.6 % BMI (kg/m2) (Calculated): 56.9 BMI Categories: Obese Class 3 (BMI 40.0 or greater) Nutrition Diagnosis: Altered nutrition-related lab values related to endocrine dysfuntion as evidenced by lab values Nutrition Interventions: Nutrition Education/Counseling: Education not indicated (Patient is from a nursing facility and confused. Although A1C 9.4%, do not feel diet education is appropriate.) Coordination of Nutrition Care: Continue to monitor while inpatient Goals: Goals: PO intake 75% or greater, by next RD assessment Nutrition Monitoring and Evaluation: Behavioral-Environmental Outcomes: None Identified Food/Nutrient Intake Outcomes: Food and Nutrient Intake Physical Signs/Symptoms Outcomes: Biochemical Data, GI Status, Fluid Status or Edema, Meal Time Behavior, Nutrition Focused Physical Findings, Skin, Weight Discharge Planning: Too soon to determine Yesenia Dave RD Contact: *[phone] Hospitalist Progress Note 11/26/2023 12:01 PM Subjective: Admit Date: 11/22/2023 PCP: DO Salazar Knutson is a 73 y.o. female with past medical history below who presents with chief complaint listed above. Pt Hx significant for A-fib on Eliquis, DMII, morbid obesity. Has been admitted 07/30/2023 for septic shock, found at that time to have ESBL UTI w/ bacteremia. Per documentation Pt reportedly less responsive, more confused at nursing facility. Initial ED workup noted normal renal function, no electrolyte abnormalities. Glucose elevated at 350. Troponin <0.012. WBCS WNL at 7.4. Vital signs note Hypertension - SBP 160-180s. HR in 60s-70s. Pt is afebrile. Will admit for further evaluation and management. - Initial; Lactic acid elevated at 2.6 - fluids were limited d/t Pt HX of fluid overload. On review of AM noted lactic acid has actually increased to 2.9 - will start fluids now w/ close monitoring. Home Bumex dose held. Interval History: pt awake Seems mildly confused No CP 11/24 Pt awake Back from OR/ stenting No CP No new sob 11/25 Pt awake Some general pain complaints No sob Adult diet Regular @IODETAILS@ @[email or web address]@ Medications: [START ON 11/27/2023] ammonium lactate, , Topical, Daily [Held by provider] apixaban, 5 mg, Oral, BID atorvastatin, 20 mg, Oral, Daily baclofen, 5 mg, Oral, TID [Held by provider] bumetanide, 1 mg, Oral, BID Diclofenac Sodium, 4 g, Topical, BID donepezil, 10 mg, Oral, Nightly gabapentin, 300 mg, Oral, TID insulin glargine, 30 Units, SubCUTAneous, Nightly insulin lispro, 0-12 Units, SubCUTAneous, TID WC And insulin lispro, 0-12 Units, SubCUTAneous, Nightly Insulin Lispro, 5 Units, SubCUTAneous, TID WC melatonin, 6 mg, Oral, Nightly meropenem, 2,000 mg, IntraVENous, q8h miconazole, , Topical, BID stomahesive in petrolatum, , Topical, q8h vancomycin, 1,500 mg, IntraVENous, q18h Recent Labs 11/24/23 0021 11/25/23 0532 WBC 5.0 3.4* HGB 10.1* 9.5* PLT 126* 119* Recent Labs 11/24/23 0021 11/25/23 0532 NA 137 135 K 4.1 3.9 CL 107 107 CO2 27 27 BUN 25* 22* CREATININE 0.81 0.80 GLUCOSE 319* 230* Recent Labs 11/24/23 0021 11/25/23 0532 AST 22 21 ALT 15 13 BILITOT 0.5 0.4 ALKPHOS 68 62 No results found for: "TRIG", "HDL", "LDLCALC", "CHOL" No results for input(s): "INR" in the last 72 hours. No results for input(s): "CKTOTAL", "CKMB", "TROPONINI" in the last 72 hours. Objective: Vitals: BP 128/62 (BP Location: Right arm, Patient Position: Lying) Pulse 83 Temp 36.1 C (97 F) (Temporal) Resp 12 Wt (!) 342 lb 9.6 oz (155 kg) SpO2 94% BMI 57.01 kg/m Pulse Ox: SpO2 Av % Min: 92 % Max: 94 % Supplemental O2: O2 Flow Rate (L/min): 4 L/min General appearance: Alert and cooperative with exam Lungs: dec bs at base Heart: regular rate and rhythm Abdomen: soft, non-tender; bowel sounds normal; no masses, no organomegaly Extremities: edema BLE Neurologic: No obvious focal neurologic deficits. Assessment Principal Problem: Altered mental status, unspecified altered mental status type Active Problems: Hypertension Recurrent UTI Kidney calculi Acute, acute on chronic, unstable/uncontrolled chronic problems/diagnoses: Sepsis bacteremia UTI Renal stone Stable chronic problems affecting care, new non-acute diagnoses: Diabetes Mellitus - Continue home diabetic regimen - Check blood glucose qACHS w/ insulin sliding scale coverage 2. Reported Hx of Dementia - Aricept 10mg 3. Atrial Fibrillation - Eliquis 5mg - Telemetry Cont abx per ID CT with UPJ stone, -- s/p L uretal stenting Blood cx Staphylococcus hominis Urine cx 100,000 CFU/mL Escherichia coli >100,000 CFU/mL Providencia stuartii Cont supportive [facility] meds otherwise PT/OT Some pancytopenia --? Sepsis related-- will follow Increase insulin dosing Anticipated Discharge - Date - 11/27 - Location - Skilled Facility - Pending the following - course Total time spent (which include face to face and non face to face encounters) : 31 minutes See orders, continue POC Advance Directive: DNR-CCA Nilo Ivan MD, Rounding Hospitalist Images from the original note were not included. [facility] - Infectious Diseases Advanced Practice Provider Progress Note Subjective: Following for complicated UTI (e coli, providencia) in setting of recurrently L UPV calculi and non obstructive L renal calculi. Pt underwent cystoscopy, L ureteral stent placement on 11/24. Notes reviewed. Pt resting in bed this AM. Reports L flank pain this AM. Denies fever, chills, n/v over weekend. Otherwise, no new alleviating or exacerbating factors. Objective: Vitals: Patient Vitals for the past 24 hrs: BP Temp Temp src Pulse Resp SpO2 11/26/23 0759 128/62 36.1 C (97 F) Temporal 83 12 94 % 11/26/23 0408 (!) 133/48 36.3 C (97.4 F) Temporal 69 19 93 % 11/26/23 0015 128/55 36.4 C (97.5 F) Temporal 68 13 93 % 11/25/23 2106 147/55 37.1 C (98.8 F) Temporal 84 19 92 % 11/25/23 1138 147/53 36.4 C (97.5 F) Temporal 72 18 98 % 11/25/23 1100 106/53 -- -- 53 16 100 % 11/25/23 1045 (!) 118/42 -- -- 60 16 100 % 11/25/23 1030 (!) 127/43 -- -- 72 16 100 % 11/25/23 1015 118/50 -- -- 65 16 100 % Physical Exam Vitals and nursing note reviewed. Constitutional: General: She is not in acute distress. Appearance: She is obese. She is ill-appearing. She is not toxic-appearing or diaphoretic. Comments: Pt resting in bed, easily awakens. NAD. Responds appropriately, conversant. HENT: Head: Normocephalic and atraumatic. Right Ear: External ear normal. Left Ear: External ear normal. Nose: Nose normal. Mouth/Throat: Mouth: Mucous membranes are moist. Pharynx: Oropharynx is clear. No oropharyngeal exudate. Eyes: General: Right eye: No discharge. Left eye: No discharge. Extraocular Movements: Extraocular movements intact. Cardiovascular: Rate and Rhythm: Normal rate and regular rhythm. Pulses: Normal pulses. Heart sounds: Normal heart sounds. No murmur heard. Pulmonary: Effort: Pulmonary effort is normal. No respiratory distress. Breath sounds: Normal breath sounds. No wheezing or rhonchi. Comments: Unlabored effort on room air Abdominal: General: Abdomen is flat. Bowel sounds are normal. There is no distension. Palpations: Abdomen is soft. Tenderness: There is abdominal tenderness. There is left CVA tenderness. There is no right CVA tenderness. Comments: Suprapubic pain Genitourinary: Comments: Jose with clear yellow urine Musculoskeletal: General: Normal range of motion. Cervical back: Normal range of motion. No rigidity. Right lower leg: Edema present. Left lower leg: Edema present. Comments: Venous stasis wounds on b/l LE Skin: General: Skin is warm and dry. Coloration: Skin is not jaundiced. Findings: Erythema present. No lesion or rash. Neurological: General: No focal deficit present. Mental Status: She is alert and oriented to person, place, and time. Mental status is at baseline. Sensory: No sensory deficit. Motor: Weakness present. Psychiatric: Mood and Affect: Mood normal. Behavior: Behavior normal. Thought Content: Thought content normal. Labs: Recent Labs 11/24/23 0021 11/25/23 0532 NA 137 135 K 4.1 3.9 CL 107 107 CO2 27 27 BUN 25* 22* CREATININE 0.81 0.80 GLUCOSE 319* 230* CALCIUM 7.9* 7.6* PROT 5.4* 5.2* BILITOT 0.5 0.4 ALKPHOS 68 62 AST 22 21 ALT 15 13 Recent Labs 11/24/23 0021 11/25/23 0532 WBC 5.0 3.4* HGB 10.1* 9.5* HCT 33.0* 30.5* PLT 126* 119* Micro: No results for input(s): "COVID19" in the last 72 hours. 11/23 05/04 blood cx NGTD 11/21 COVID/RSV/Flu negative 11/21 05/04 blood cx 05/04 S hominis 11/21 urine cx >100k E coli, >100k Providencia 08/21 blood cx NG 08/01 05/04 blood cx NG 07/31 MRSA PCR negative 07/31 resp cx NG 07/31 pna pcr + coronavirus, rhinovirus 07/29 urine cx normal urogenital gaby 50-90K esbl e coli 07/29 04/03 blood cx ESBL e coli 01/08/2305/04 blood cx NG 01/08/23 urine cx multiple species present 08/04/22 urine cx NG 3/15 1/2 blood cx CONS 3/12 1/2 blood cx + ESBL e coli 06/10 urine bladder cx anaerobic GPB, skin gaby, ESBL e coli, p mirabilis 06/09 blood cx + ESBL e coli, p mirabilis , 1/2 +CONS Lines: Chronic jose PIV Radiography/Echo/Other: 11/22 CT a/p without contrast 1. Calculus at the level left UPJ measuring approximately 0.7 x 0.9 cm. 11/21 CXR No acute findings 11/21 CT head 1. No acute intracranial findings. 2. Probable chronic ischemic and atrophic changes. Antimicrobials,Start/End Dates: Vancomycin 11/21 - present Meropenem 11/21 - present Impression: AMS Complicated UTI dt E coli and Providencia in setting of chronic jose L UPJ calculi s/p cystoscopy and L ureteral stent placement 11/25/23. 2/2 Blood Cx CoNS - collected from L arm at same time -> likely contaminant Presence of chronic jose for neurogenic bladder Extensive intertrigo and fungal dermatitis H/o obstructive proximal ureteral calculus s/p emergent cysto/L ureteral stent placement 06/10/22 Stent exchange 08/03/22 Stent removal 09/27/23 H/o ESBL e coli bacteremia 05/2022, 07/2023 H/o p mirabilis bacteremia 05/2022 DM Afib on eliquis Prolonged Qtc Tinea pedis and onychomycosis Plan: Maintain meropenem. Noted of 2/2 blood cx + CONS. Both of these blood cultures were collected at the same time from pt's L arm, thus this is functionally 1/1 blood cx + CONS. Repeat blood cx NGTD. The CONS is likely skin contaminant and not clinically significant. Thus, recommend discontinuing vancomycin. Follow repeat blood cx Stent removal to be scheduled as outpatient with urology after discharge Maintain antifungal powder tos kin folds and upper back for fungal dermatitis and intertrigo Maintain miconazole cream to b/l feet BID x4 weeks for tinea pedis. Monitor infectious parameters ID to follow, d/w Dr Fernandez Based on diagnoses and management, combination of acute and chronic problems, exacerbations and/or acuity, this visit should be considered to be of moderate complexity. Faiza Campbell, FLOR, PA-C ADDENDUM: Spoke with micro lab. 1/2 blood cx from 8/22 still with unidentified GPC. Until further identification, will maintain vancomycin pending further results. D/w pharm. UROLOGY PROGRESS NOTE PATIENT NAME: Salazar Coyle DATE OF : 1950 ADMISSION DATE: 11/22/2023 TODAY'S DATE: 11/26/2023 Subjective No acute events overnight. POD1 L stent placement Denies pain, N/V, F/C Objective VS: BP (!) 133/48 (BP Location: Right arm, Patient Position: Sitting) Pulse 69 Temp 36.3 C (97.4 F) (Temporal) Resp 19 Wt (!) 342 lb 9.6 oz (155 kg) SpO2 93% BMI 57.01 kg/m I & O - 24hr: I/O last 3 completed shifts: In: 3302 (21.2 mL/kg) [P.O.:2200; I.V.:543 (3.5 mL/kg); IV Piggyback:559] Out: 400 (2.6 mL/kg) [Urine:400 (0.1 mL/kg/hr)] Weight: 155.4 kg I/O this shift: In: - Out: 450 [Urine:450] Physical Exam: General: Neck: Resp: Abdomen: No acute distress Supple Normal effort, no respiratory distress, on RA Soft, non-tender, nondistended : No flank ttp Skin: Skin color, texture, turgor normal, no rashes or lesions Labs and Imaging Studies Labs: CBC: Lab Results Component Value Date WBC 3.4 (L) 11/25/2023 HGB 9.5 (L) 11/25/2023 HCT 30.5 (L) 11/25/2023 MCV 99.7 (H) 11/25/2023 PLT 119 (L) 11/25/2023 BMP: Lab Results Component Value Date GLUCOSE 230 (H) 11/25/2023 CALCIUM 7.6 (L) 11/25/2023 NA 135 11/25/2023 K 3.9 11/25/2023 CO2 27 11/25/2023 CL 107 11/25/2023 BUN 22 (H) 11/25/2023 CREATININE 0.80 11/25/2023 PT/INR: Lab Results Component Value Date INR 1.1 08/02/2023 INR 1.1 08/01/2023 INR 1.2 (H) 07/31/2023 PROTIME 11.4 08/02/2023 PROTIME 11.8 08/01/2023 PROTIME 12.6 (H) 07/31/2023 Urinalysis: No results found for: UA Urine Culture: No components found for: "UCX" Blood Culture: Imaging Studies: POCT glucose meter Performed by: [facility], [address] [place] [id number] CLIA ID: [id number] POCT glucose meter Performed by: [facility], [address] [place] [id number] CLIA ID: [id number] POCT glucose meter Performed by: [facility], [address] [place] [id number] CLIA ID: [id number] [place] GUIDANCE OR USE ONLY - NON RESULTABLE There is no interpretation needed for this exam. POCT glucose meter Performed by: [facility], [address] [place] [id number] CLIA ID: [id number] Assessment and Plan ASSESSMENT: 73 y.o. female with urosepsis, L UPJ calculus. PLAN: - CT reviewed - 9mm L UPJ calculus, no significant hydro but given location of stone and potential for obstruction will proceed with L ureteral stent placement - Now POD1 L stent placement - Our office will call to arrange definitve stone management once discharged - Ucx >100k E coli, Providencia - Ucx staph hominis - IV Abx per ID - Pain/nausea control prn - maintain jose - jose is chronic - rest of care per primary - urology will sign off Kim Lowe MD 11/26/2023 6:31 AM Associated attestation - Darrick Gan MD - 11/27/2023 1:29 PM EDT I saw and evaluated the patient, participating in the arias portions of the service. I reviewed the resident s note. I agree with the resident s findings and plan. Darrick Gan MD [facility] Respiratory Care Department Progress Note Comment or reasoning for refusal: Patient was seen in attempts to fulfill CPAP/BiPAP/AutoPAP order. Patient refused PAP therapy/study at this time. Patient was educated on medical need and reasoning for physician order to ensure patient was making an informed medical decision. All of the patient's questions were answered at this time and patient was informed that if the patient changes their mind regarding wearing PAP to hit their "call light" or inform their nurse to contact Respiratory. A second, consecutive night of refusing PAP therapy/study results in order completion in the EMR. If future CPAP/BiPAP/AutoPAP therapy or study is indicated please place another order in the EMR and the assigned Respiratory Therapist will reattempt to fulfill orders. Reason for refusal: pt refuses Thank you for involving Respiratory in the care of this patient, Hospitalist Progress Note 11/25/2023 1:01 PM Subjective: Admit Date: 11/22/2023 PCP: Paige Rivera DO Salazar is a 73 y.o. female with past medical history below who presents with chief complaint listed above. Pt Hx significant for A-fib on Eliquis, DMII, morbid obesity. Has been admitted 07/30/2023 for septic shock, found at that time to have ESBL UTI w/ bacteremia. Per documentation Pt reportedly less responsive, more confused at nursing facility. Initial ED workup noted normal renal function, no electrolyte abnormalities. Glucose elevated at 350. Troponin <0.012. WBCS WNL at 7.4. Vital signs note Hypertension - SBP 160-180s. HR in 60s-70s. Pt is afebrile. Will admit for further evaluation and management. - Initial; Lactic acid elevated at 2.6 - fluids were limited d/t Pt HX of fluid overload. On review of AM noted lactic acid has actually increased to 2.9 - will start fluids now w/ close monitoring. Home Bumex dose held. Interval History: pt awake Seems mildly confused No CP 11/24 Pt awake Back from OR/ stenting No CP No new sob Adult diet Regular @IODETAILS@ @[email or web address]@ Medications: sodium chloride, 100 mL/hr, Last Rate: Stopped (11/25/23 0904) [Held by provider] apixaban, 5 mg, Oral, BID atorvastatin, 20 mg, Oral, Daily baclofen, 5 mg, Oral, TID [Held by provider] bumetanide, 1 mg, Oral, BID Diclofenac Sodium, 4 g, Topical, BID donepezil, 10 mg, Oral, Nightly gabapentin, 300 mg, Oral, TID insulin glargine, 30 Units, SubCUTAneous, Nightly insulin lispro, 0-6 Units, SubCUTAneous, TID WC And insulin lispro, 0-6 Units, SubCUTAneous, Nightly Insulin Lispro, 5 Units, SubCUTAneous, TID WC melatonin, 6 mg, Oral, Nightly meropenem, 2,000 mg, IntraVENous, q8h miconazole, , Topical, BID nystatin, , Topical, BID vancomycin, 1,500 mg, IntraVENous, q18h Recent Labs 11/23/234 11/24/23 0021 11/25/23 0532 WBC 7.4 5.0 3.4* HGB 10.3* 10.1* 9.5* PLT 146 126* 119* Recent Labs 11/23/23 0444 11/24/23 0021 11/25/23 0532 NA 137 137 135 K 3.9 4.1 3.9 CL 107 107 107 CO2 26 27 27 BUN 24* 25* 22* CREATININE 0.79 0.81 0.80 GLUCOSE 327* 319* 230* Recent Labs 11/23/23 0444 11/24/23 0021 11/25/23 0532 AST 21 22 21 ALT 15 15 13 BILITOT 0.4 0.5 0.4 ALKPHOS 78 68 62 No results found for: "TRIG", "HDL", "LDLCALC", "CHOL" No results for input(s): "INR" in the last 72 hours. Recent Labs 11/22/23 2134 11/23/23 0051 11/23/23 0444 TROPONINI <0.012 0.012 0.012 Objective: Vitals: BP 147/53 Pulse 72 Temp 36.4 C (97.5 F) (Temporal) Resp 18 Wt (!) 342 lb 9.6 oz (155 kg) SpO2 98% BMI 57.01 kg/m Pulse Ox: SpO2 Av.2 % Min: 92 % Max: 100 % Supplemental O2: O2 Flow Rate (L/min): 4 L/min General appearance: Alert and cooperative with exam Lungs: dec bs at base Heart: regular rate and rhythm Abdomen: soft, non-tender; bowel sounds normal; no masses, no organomegaly Extremities: edema BLE Neurologic: No obvious focal neurologic deficits. Assessment Principal Problem: Altered mental status, unspecified altered mental status type Active Problems: Hypertension Recurrent UTI Kidney calculi Acute, acute on chronic, unstable/uncontrolled chronic problems/diagnoses: Sepsis bacteremia UTI Renal stone Stable chronic problems affecting care, new non-acute diagnoses: Diabetes Mellitus - Continue home diabetic regimen - Check blood glucose qACHS w/ insulin sliding scale coverage 2. Reported Hx of Dementia - Aricept 10mg 3. Atrial Fibrillation - Eliquis 5mg - Telemetry Cont abx per ID CT with UPJ stone, -- s/p L uretal stenting Blood cx Staphylococcus hominis Urine cx 100,000 CFU/mL Escherichia coli Abnormal >100,000 CFU/mL Providencia stuartii Abnormal Hold OAC for now in case of procedure Cont supportive MCFP meds otherwise PT/OT Some pancytopenia --? Sepsis related-- will follow Increase insulin dosing Anticipated Discharge - Date - 11/26 - Location - Skilled Facility - Pending the following - course Total time spent (which include face to face and non face to face encounters) : 32 minutes See orders, continue POC Advance Directive: DNR-CCA Nilo Ivan MD, [facility] Hospitalist Pharmacy to Dose Vancomycin - Progress Note Lab Results Component Value Date CREATININE 0.80 11/25/2023 BUN 22 (H) 11/25/2023 WBC 3.4 (L) 11/25/2023 VANCORANDOM 5.9 (L) 06/10/2022 VANCOTROUGH 5.7 (L) 11/24/2023 Doses, serum creatinine, and vancomycin levels interfaced automatically to [employer] Systems and data has been analyzed and interpreted. Infectious Diagnosis: SSTI/UTI; Hx of ESBL bacteremia; MRSE/MRSL on PCR + 2/2 blood cx Est CrCl: 150 mL/min (Cockcroft-Gault) Assessment: Current regimen vancomycin 1500 mg every 18 hours (9.7 mg/kg) Predicted AUC = 564 mg/L*hr (goal 400-600 mg/L*hr) PAUC = 100% (probability that AUC is >400 mg/L*hr) Pconc = 10% (probability that Ctrough is above 20 mcg/mL (toxicity)) Plan: Is the current dose therapeutic? [x] Yes - obtain next level on 11/26/23 [] No Trend serum creatinine. Trend AUC using Bayesian Modeling. Orders placed. DATE: 11/25/23 TIME: 12:56 PM Thi Keller PharmD Clinical Pharmacist Available via Secure Chat UROLOGY PROGRESS NOTE PATIENT NAME: Salazar Coyle DATE OF : 1950 ADMISSION DATE: 11/22/2023 TODAY'S DATE: 11/25/2023 Subjective No acute events overnight. Patient agreeable to intervention. Has seen [facility] prior for surgery All questions answered Objective VS: BP 140/61 (BP Location: Right arm, Patient Position: Lying) Pulse 79 Temp (!) 35.8 C (96.4 F) (Temporal) Resp 16 Wt (!) 342 lb 9.6 oz (155 kg) SpO2 92% BMI 57.01 kg/m I & O - 24hr: I/O last 3 completed shifts: In: 7531.7 (48.5 mL/kg) [P.O.:2320; I.V.:2311.7 (14.9 mL/kg); IV Piggyback:2900] Out: 1000 (6.4 mL/kg) [Urine:1000 (0.2 mL/kg/hr)] Weight: 155.4 kg No intake/output data recorded. Physical Exam: General: Neck: Resp: Abdomen: No acute distress Supple Normal effort, no respiratory distress, on RA Soft, non-tender, nondistended : No flank ttp Skin: Skin color, texture, turgor normal, no rashes or lesions Labs and Imaging Studies Labs: CBC: Lab Results Component Value Date WBC 3.4 (L) 11/25/2023 HGB 9.5 (L) 11/25/2023 HCT 30.5 (L) 11/25/2023 MCV 99.7 (H) 11/25/2023 PLT 119 (L) 11/25/2023 BMP: Lab Results Component Value Date GLUCOSE 230 (H) 11/25/2023 CALCIUM 7.6 (L) 11/25/2023 NA 135 11/25/2023 K 3.9 11/25/2023 CO2 27 11/25/2023 CL 107 11/25/2023 BUN 22 (H) 11/25/2023 CREATININE 0.80 11/25/2023 PT/INR: Lab Results Component Value Date INR 1.1 08/02/2023 INR 1.1 08/01/2023 INR 1.2 (H) 07/31/2023 PROTIME 11.4 08/02/2023 PROTIME 11.8 08/01/2023 PROTIME 12.6 (H) 07/31/2023 Urinalysis: No results found for: UA Urine Culture: No components found for: "UCX" Blood Culture: Imaging Studies: POCT glucose meter Performed by: [facility], [address] [place] [address] CLIA ID: [id number] Assessment and Plan ASSESSMENT: 73 y.o. female with urosepsis, L UPJ calculus. PLAN: - CT reviewed - 9mm L UPJ calculus, no significant hydro but given location of stone and potential for obstruction will proceed with L ureteral stent placement - Pt was not NPO at time of consult so plan for L stent placement today - NPO / IVF - Ucx >100k E coli, Providencia - Ucx staph hominis - IV Abx per ID - Pain/nausea control prn - maintain jose - jose is chronic - Page immediately with fevers/hypotension - rest of care per primary Aubrie Ramos MD 11/25/2023 8:00 AM Patient was seen and evaluated. The history and physical has been reviewed. The pertinent findings from the history of present illness, past medical history, family history, social history, review of systems, and physical exam have been noted and confirmed that are unchanged. Discussed with the urology resident. Agree with assessment and plan Discussed cystoscopy, left ureteral stent placement procedure. Discussed Risks, expectations and potential options. Risks include, but are not limited to Bleeding, infection, failure of treatment,need for additional procedures, TN, stroke, embolus, DVT and . Patient understands. Informed consent obtained. Images from the original note were not included. [facility] - Infectious Diseases Advanced Practice Provider Progress Note Subjective: Following patient for UTI; UPJ calculi. Notes reviewed. Patient denies any fever/chills, CP, SOB, N/V, abdominal pain, and any new bowel or urinary issues. Denies any pain at present. Anticipating stent procedure tomorrow. No other new exacerbating or alleviating factors. Objective: Vitals: Patient Vitals for the past 24 hrs: BP Temp Temp src Pulse Resp SpO2 Weight 11/24/23 1137 146/57 36.4 C (97.5 F) Temporal 81 18 95 % -- 11/24/23 0834 125/96 36.1 C (97 F) Temporal 86 18 94 % -- 11/24/23 0244 127/61 36.3 C (97.4 F) Temporal 91 16 100 % (!) 155 kg (342 lb 9.6 oz) 11/23/23 2241 132/63 (!) 35.7 C (96.2 F) Temporal 109 16 94 % -- 11/23/23 1927 124/89 36.2 C (97.1 F) Temporal 98 12 93 % -- 11/23/23 1600 116/58 36.6 C (97.8 F) Temporal 89 18 93 % -- Physical Exam Vitals and nursing note reviewed. Constitutional: General: She is not in acute distress. Appearance: Normal appearance. She is normal weight. She is not ill-appearing. Comments: NAD laying in bed. Cooperative, conversant HENT: Head: Normocephalic and atraumatic. Right Ear: External ear normal. Left Ear: External ear normal. Nose: Nose normal. Mouth/Throat: Mouth: Mucous membranes are moist. Pharynx: Oropharynx is clear. Eyes: Extraocular Movements: Extraocular movements intact. Conjunctiva/sclera: Conjunctivae normal. Pupils: Pupils are equal, round, and reactive to light. Cardiovascular: Rate and Rhythm: Normal rate and regular rhythm. Pulses: Normal pulses. Heart sounds: Normal heart sounds. Pulmonary: Effort: Pulmonary effort is normal. Breath sounds: Normal breath sounds. No wheezing, rhonchi or rales. Comments: Breathing comfortably on room air Abdominal: General: Abdomen is flat. Bowel sounds are normal. There is no distension. Palpations: Abdomen is soft. Tenderness: There is no abdominal tenderness. There is no guarding. Comments: Suprapubic discomfort Genitourinary: Comments: + Jose with clear yellow urine in bag Musculoskeletal: Right lower leg: Edema present. Left lower leg: Edema present. Skin: General: Skin is warm and dry. Comments: +intertrigo in axilla and abdominal folds Neurological: General: No focal deficit present. Mental Status: She is alert and oriented to person, place, and time. Psychiatric: Mood and Affect: Mood normal. Behavior: Behavior normal. Labs: Recent Labs 11/22/23213311/23/2344311/24/23 0021 NA 137 137 137 K 4.5 3.9 4.1 CL 103 107 107 CO2 29 26 27 BUN 28* 24* 25* CREATININE 0.91 0.79 0.81 GLUCOSE 350* 327* 319* CALCIUM 8.7 8.1* 7.9* PROT 6.9 5.8* 5.4* BILITOT 0.8 0.4 0.5 ALKPHOS 82 78 68 AST 36 21 22 ALT 16 15 15 Recent Labs 11/22/23213311/23/23 0051 11/23/234 11/24/23 0021 WBC 7.4 -- 7.4 5.0 HGB 11.7 13.3 10.3* 10.1* HCT 37.0 -- 33.2* 33.0* PLT 138* -- 146 126* LYMPHOPCT 17.3 -- -- -- MONOPCT 6.9 -- -- -- BASOPCT 0.3 -- -- -- NEUTROABS 5.4 -- -- -- Micro: No results for input(s): "COVID19" in the last 72 hours. 11/21 COVID/RSV/Flu negative 11/21 2/2 blood cx 2/ S hominis 11/21 urine cx >100k E coli, >100k Providencia 08/21 blood cx NG 08/01 05/04 blood cx NG 07/31 MRSA PCR negative 07/31 resp cx NG 07/31 pna pcr + coronavirus, rhinovirus 07/29 urine cx normal urogenital gaby 50-90K esbl e coli 07/29 04/03 blood cx ESBL e coli 01/08/2305/04 blood cx NG 01/08/23 urine cx multiple species present 08/04/22 urine cx NG 06/14 04/03 blood cx CONS 06/11 04/03 blood cx + ESBL e coli 06/10 urine bladder cx anaerobic GPB, skin gaby, ESBL e coli, p mirabilis 06/09 blood cx + ESBL e coli, p mirabilis , 04/03 +CONS Lines: Chronic jose PIV Radiography/Echo/Other: 11/22 CT a/p without contrast 1. Calculus at the level left UPJ measuring approximately 0.7 x 0.9 cm. 11/21 CXR No acute findings 11/21 CT head 1. No acute intracranial findings. 2. Probable chronic ischemic and atrophic changes. Antimicrobials,Start/End Dates: Vancomycin 11/21 - present Meropenem 11/21 - present Impression: AMS UTI dt E coli and Providencia L UPJ calculi 05/04 Blood Cx CoNS Presence of chronic jose for neurogenic bladder Extensive intertrigo and fungal dermatitis H/o obstructive proximal ureteral calculus s/p emergent cysto/L ureteral stent placement 06/10/22 Stent exchange 08/03/22 Stent removal 09/27/23 H/o ESBL e coli bacteremia 05/2022, 07/2023 H/o p mirabilis bacteremia 05/2022 DM Afib on eliquis Prolonged Qtc Tinea pedis and onychomycosis Plan: Patient urine Cx with E coli and Providencia concerning for UTI in setting of suprapubic discomfort and chronic jose. Additionally, imaging reveals L UPJ calculi. Urology following and planning for L stent placement tomorrow. Blood Cx 2/2 with CoNS. Suspect contaminant given drawn same site/ same time but check repeat Blood Cx. Plan to continue Vancomycin (Pharm to dose) and Meropenem for now. Follow culture results/sensitivities and optimize as able Continue antifungal powder to skin folds and upper back for fungal dermatitis/intertrigo. Continue antifungal cream to bl feet for tinea pedis. ID will continue to follow. Case and plan discussed with Dr. Petersen Based on diagnoses and management, combination of acute and chronic problems, exacerbations and/or acuity, this visit should be considered to be of moderate complexity. Kaitlynn RAY PA-C [facility] [place] Infectious Disease Nutrition rescreen completed. Patient referred to the Dietitian due to DM uncontrolled (HgA1c = 9.4). DWIGHT Pearson Hospitalist Progress Note 11/24/2023 11:23 AM Subjective: Admit Date: 11/22/2023 PCP: DO Salazar Knutson is a 73 y.o. female with past medical history below who presents with chief complaint listed above. Pt Hx significant for A-fib on Eliquis, DMII, morbid obesity. Has been admitted 07/30/2023 for septic shock, found at that time to have ESBL UTI w/ bacteremia. Per documentation Pt reportedly less responsive, more confused at nursing facility. Initial ED workup noted normal renal function, no electrolyte abnormalities. Glucose elevated at 350. Troponin <0.012. WBCS WNL at 7.4. Vital signs note Hypertension - SBP 160-180s. HR in 60s-70s. Pt is afebrile. Will admit for further evaluation and management. - Initial; Lactic acid elevated at 2.6 - fluids were limited d/t Pt HX of fluid overload. On review of AM noted lactic acid has actually increased to 2.9 - will start fluids now w/ close monitoring. Home Bumex dose held. Interval History: pt awake Seems mildly confused No CP NPO diet with enteral medications Adult diet Regular; 5 carb choices (75 gm/meal) @IODETAILS@ @[email or web address] Medications: [START ON 11/25/2023] sodium chloride, 100 mL/hr apixaban, 5 mg, Oral, BID atorvastatin, 20 mg, Oral, Daily baclofen, 5 mg, Oral, TID [Held by provider] bumetanide, 1 mg, Oral, BID Diclofenac Sodium, 4 g, Topical, BID donepezil, 10 mg, Oral, Nightly gabapentin, 300 mg, Oral, TID insulin glargine, 30 Units, SubCUTAneous, Nightly insulin lispro, 0-6 Units, SubCUTAneous, TID WC And insulin lispro, 0-6 Units, SubCUTAneous, Nightly Insulin Lispro, 5 Units, SubCUTAneous, TID WC melatonin, 6 mg, Oral, Nightly meropenem, 2,000 mg, IntraVENous, q8h miconazole, , Topical, BID nystatin, , Topical, BID vancomycin, 1,500 mg, IntraVENous, q18h Recent Labs 11/22/23213311/23/235011/23/234 11/24/23 0021 WBC 7.4 -- 7.4 5.0 HGB 11.7 13.3 10.3* 10.1* PLT 138* -- 146 126* Recent Labs 11/22/23213311/23/234 11/24/23 0021 NA 137 137 137 K 4.5 3.9 4.1 CL 103 107 107 CO2 29 26 27 BUN 28* 24* 25* CREATININE 0.91 0.79 0.81 GLUCOSE 350* 327* 319* Recent Labs 11/22/23213311/23/234 11/24/23 0021 AST 36 21 22 ALT 16 15 15 BILITOT 0.8 0.4 0.5 ALKPHOS 82 78 68 No results found for: "TRIG", "HDL", "LDLCALC", "CHOL" No results for input(s): "INR" in the last 72 hours. Recent Labs 11/22/23213311/23/235011/23/23443 TROPONINI <0.012 0.012 0.012 Objective: Vitals: BP 125/96 (BP Location: Right arm, Patient Position: Sitting) Pulse 86 Temp 36.1 C (97 F) (Temporal) Resp 18 Wt (!) 342 lb 9.6 oz (155 kg) SpO2 94% BMI 57.01 kg/m Pulse Ox: SpO2 Av.7 % Min: 93 % Max: 100 % Supplemental O2: General appearance: Alert and cooperative with exam Lungs: dec bs at base Heart: regular rate and rhythm Abdomen: soft, non-tender; bowel sounds normal; no masses, no organomegaly Extremities: edema BLE Neurologic: No obvious focal neurologic deficits. Assessment Principal Problem: Altered mental status, unspecified altered mental status type Active Problems: Hypertension Recurrent UTI Acute, acute on chronic, unstable/uncontrolled chronic problems/diagnoses: Sepsis MRSE bacteremia UTI Renal stone Stable chronic problems affecting care, new non-acute diagnoses: Diabetes Mellitus - Continue home diabetic regimen - Check blood glucose qACHS w/ insulin sliding scale coverage 2. Reported Hx of Dementia - Aricept 10mg 3. Atrial Fibrillation - Eliquis 5mg - Telemetry Cont abx per ID CT with UPJ stone, will ask to eval Hold OAC for now in case of procedure Cont supportive MCFP meds otherwise Anticipated Discharge - Date - 11/25 - Location - Skilled Facility - Pending the following - course Total time spent (which include face to face and non face to face encounters) : 36 minutes See orders, continue POC Advance Directive: DNR-CCA Nilo Ivan MD, [facility] Hospitalist Pharmacy to Dose Vancomycin - Progress Note Lab Results Component Value Date CREATININE 0.81 11/24/2023 BUN 25 (H) 11/24/2023 WBC 5.0 11/24/2023 VANCORANDOM 5.9 (L) 06/10/2022 VANCOTROUGH 5.7 (L) 11/24/2023 Doses, serum creatinine, and vancomycin levels interfaced automatically to PLC Systems and data has been analyzed and interpreted. Infectious Diagnosis: SSTI/UTI; MRSE/MRSL on PCR + 2/2 blood cx Est CrCl: 146 mL/min (Cockcroft-Gault) Assessment: Current regimen vancomycin 1500 mg every 24 hours (9.7 mg/kg) Predicted AUC = 428 mg/L*hr (goal 400-600 mg/L*hr) PAUC = 75% (probability that AUC is >400 mg/L*hr) Pconc = 0% (probability that Ctrough is above 20 mcg/mL (toxicity)) Plan: Is the current dose therapeutic? [x] Yes - however due to availability of a regimen with a higher likelihood of therapeutic exposure and/or reduced toxicity, will change current regimen to vancomycin 1500 mg every 18 hours (9.7 mg/kg) for predicted AUC 554 mg/L*hr, PAUC = 100% , and Pconc* = 6%. Obtain next level on 11/25. Trend serum creatinine. Trend AUC using Bayesian Modeling. Orders placed. DATE: 11/24/23 TIME: 7:29 AM Sarita Stock PharmD Clinical Pharmacist Available via Secure Chat Images from the original note were not included. Pharmacy Managed Vancomycin Dosing Service Consult Note Consult Date: 11/23/23 Patient Name: Salazar Coyle Allergies: Ertapenem Age: 73 y.o. Sex: female Estimated body mass index is 66.56 kg/m as calculated from the following: Height as of 09/27/23: 1.651 m (5' 5"). Weight as of this encounter: 181 kg (400 lb). DW: 181 kg Lab Results Component Value Date CREATININE 0.91 11/22/2023 CREATININE 1.17 (H) 08/09/2023 BUN 28 (H) 11/22/2023 BUN 69 (H) 08/09/2023 WBC 7.4 11/22/2023 WBC 6.3 08/09/2023 CRCLEARANCE 17.8 (L) 04/08/2021 Calculated CrCl: >100 mL/min (Cockcroft-Gault) Consulted By: Dr. Sal Infectious Diagnosis: SSTI/UTI (AUC Goal 400-600 mg/L*hr) Random Vancomycin Level Due: 11/23 AM labs Antimicrobials: Patient recently received an antibiotic (last 12 hours) Date/Time Action Medication Dose Rate 11/23/23 0051 New Bag meropenem (Merrem) 2,000 mg in sodium chloride 0.9 % 100 mL IVPB 2,000 mg 33.3 mL/hr Assessment/Plan: Doses, serum creatinine, and vancomycin levels interfaced automatically to [employer] and data has been analyzed and interpreted. Start Vancomycin 1500 mg every 24 hours based on patient age, weight, renal function, and infectious diagnosis (8 mg/kg). Predicted AUC = 463 mg/L*hr (goal 400-600 mg/L*hr) PAUC = 75% (probability that AUC is >400 mg/L*hr) Pconc = 8% (probability that Ctrough is above 20 mcg/mL (toxicity)) Will assess random level on 11/23 and adjust as appropriate. Trend serum creatinine. Orders placed. Thank you for this consult. Please secure text or call with questions. DATE: 11/23/23 TIME: 3:06 AM Christina Abraham RPh Clinical Pharmacist Available via Secure Chat documented in this encounter [facility] 11-28-2023 Procedure note Associated Ord er(s): PICC Insertion/Replacement Post-Procedure Diagnose(s): Complicated UTI (urinary tract infection); Lack of intravenous access PICC Insertion/Replacement Date/Time: 11/28/2023 12:15 PM Performed by: ZINA Cross CNP Authorized by: ZINA Cross CNP Consent: The indications, risks, benefits, alternatives to the procedure were explained to the patient/surrogate decision maker and their questions answered. Consent was obtained to proceed with the procedure. Timeout: Completed immediately prior to the start of the procedure which included verification of the correct patient, correct site and agreement on the procedure to be done. Indications: Indications: Lack of adequate PIV access and other (see comment) Indications comment: Complicated UTI Anesthetic: Local anesthetic used: lidocaine without epinephrine Procedure details: Preparation: Skin prepped with chlorhexidine Skin prep agent dried: Skin prep agent completely dried prior to procedure Sterile barriers: All five maximal sterile barriers used - gloves, gown, cap, mask and large sterile sheet Hand hygiene: Hand hygiene performed prior to central venous catheter insertion Sterile technique: Sterile technique maintained throughout procedure. Site prior to insertion: Benign Procedure type: Insertion Orientation: right Location: Cephalic Catheter type: Double lumen Catheter size: 5 Fr Lot #: [id number] Trimmed at (cm): 41 Inserted at (cm): 41 Ultrasound guidance: Yes Post-procedure: Post-procedure: Antimicrobial dressing applied and securement device Description/Findings: Flushes easily and blood returned Estimated blood loss: < 5 mL Specify complication(s): No apparent complications Follow-up chest x-ray: Ordered documented in this encounter [facility] 11-26-2023 Consult note Associated Order (s): IP WOUND CARE NURSE CONSULT TO EVAL; IP WOUND CARE NURSE CONSULT TO EVAL Images from the original note were not included. [facility] Wound Care CONSULT Note Salazar Coyle AGE: 73 y.o. GENDER: female : 1950 Subjective: HISTORY of PRESENT ILLNESS HPI Salazar Coyle is a 73 y.o. female who presents for a wound consult. HPI: 73 y.o. female with past medical history below who presents with chief complaint listed above. Pt Hx significant for A-fib on Eliquis, DMII, morbid obesity. Has been admitted 07/30/2023 for septic shock, found at that time to have ESBL UTI w/ bacteremia. Per documentation Pt reportedly less responsive, more confused at nursing facility. Wound Care consulted for "Pressure injury, skin tear". Of notes, examination limited to patient's body habitus. PAST MEDICAL HISTORY Past Medical History: Diagnosis Date A-fib (CMS/HCC) (HCC) Anemia Diabetes (HCC) Lymphedema Obesity PAST SURGICAL HISTORY Past Surgical History: Procedure Laterality Date URETEROSCOPY Left 09/27/2023 Cytoscopy, left ureteral stent removal , left flexible ureteroscopic laser lithotripsy. Spear FAMILY HISTORY No family history on file. SOCIAL HISTORY Social History Tobacco Use Smoking status: Never Smokeless tobacco: Never Vaping Use Vaping status: Never Used Substance Use Topics Alcohol use: Never Drug use: Never ALLERGIES Allergies Allergen Reactions Ertapenem Patient tolerated July 2022 Tolerated meropenem August 2023 MEDICATIONS No current facility-administered medications on file prior to encounter. Current Outpatient Medications on File Prior to Encounter Medication Sig Dispense Refill acetaminophen (Tylenol) 325 MG tablet Take 325 mg by mouth 3 times daily. apixaban (Eliquis) 5 MG tablet Take 5 mg by mouth 2 times daily. ascorbic acid (Vitamin C) 250 MG tablet Take 250 mg by mouth daily. atorvastatin (Lipitor) 20 MG tablet Take 20 mg by mouth daily. baclofen (Lioresal) 5 MG tablet Take 1 tablet by mouth 3 times daily. bumetanide (Bumex) 1 MG tablet Take 1 tablet (1 mg) by mouth in the morning and 1 tablet (1 mg) in the evening. 60 tablet 2 Calcium Carbonate-Vitamin D (Oyster Shell Calcium/D) 500-5 MG-MCG tablet Take 1 tablet by mouth daily. Diclofenac Sodium (Voltaren) 1 % gel Apply 4 g topically 2 times daily. 50 g 1 donepezil (Aricept) 10 MG tablet Take 10 mg by mouth Nightly. gabapentin (Neurontin) 100 MG capsule Take 3 capsules (300 mg) by mouth 3 times daily. 180 capsule 2 insulin glargine (Lantus) 100 UNIT/ML injection Inject 30 Units under the skin Nightly. 9 mL 0 Insulin Lispro (Humalog) 100 UNIT/ML solution injection Inject 5 Units under the skin in the morning and 5 Units at noon and 5 Units in the evening. Inject with meals. 10 mL 2 nystatin (Mycostatin) 350507 UNIT/GM powder oxyCODONE (Oxy-IR) 5 MG immediate release capsule Take 5 mg by mouth. senna-docusate ([place]ena-Colace) 8.6-50 MG tablet Take 100 tablets by mouth Every 24 hours. sertraline (Zoloft) 50 MG tablet Take 50 mg by mouth daily. REVIEW OF SYSTEMS Pertinent items are noted in HPI. Objective: BP (!) 133/48 (BP Location: Right arm, Patient Position: Sitting) Pulse 69 Temp 36.3 C (97.4 F) (Temporal) Resp 19 Wt (!) 155 kg (342 lb 9.6 oz) SpO2 93% BMI 57.01 kg/m PHYSICAL EXAM General appearance: in no apparent distress, well developed and well nourished, and alert, obese Skin: warm and dry, pink rash noted to all skin folds Pulmonary: Normal effort, no respiratory distress, no cyanosis Bilateral lower legs: No openings. No drainage. Edema present. Photo: 11/26/23 Left breast: [place] rash noted to area. No openings. No drainage. Photo: 11/26/23 Bilateral buttocks: Tissue wet and moist. Small excoriation noted. No drainage. Photo: 11/26/23 LABS CBC: Lab Results Component Value Date WBC 3.4 (L) 11/25/2023 HGB 9.5 (L) 11/25/2023 HCT 30.5 (L) 11/25/2023 MCV 99.7 (H) 11/25/2023 PLT 119 (L) 11/25/2023 BMP: Lab Results Component Value Date NA 135 11/25/2023 K 3.9 11/25/2023 CL 107 11/25/2023 CO2 27 11/25/2023 BUN 22 (H) 11/25/2023 CREATININE 0.80 11/25/2023 PT/INR: No results found for: "PROTIME", "INR" Prealbumin: No results found for: PREALBUMIN Albumin:No components found for: LABALBU Sed Rate:No results found for: SEDRATE Micro: No components found for: "BC" Assessment/Plan: Bilateral lower legs: Venous stasis dermatitis - Clean with Hibiclens, apply Lac-hydrin then leave SPRINKLING SYSTEM IRRIGATOR daily Left breast: Fungal dermatitis - Clean with soap and water, dry well, Miconazole powder BID and PRN Bilateral buttocks: MASD (bodily fluids) -Clean with soap and water, apply ET mix then leave SPRINKLING SYSTEM IRRIGATOR TID and PRN Abdomen folds, bilateral knee folds: Fungal dermatitis - Clean with soap and water, dry well, Miconazole powder BID and PRN TCB bed Reposition q2hrs Incontinent checks q2hrs Nutritional support Wound Care to follow Recommend to follow up at [facility] Outpatient wound care center after hospital discharge. Any questions or concerns please secure chat "ACH wound/ostomy". Thank you for the consult! I personally obtained the arias and critical portions of the history and physical exam. I reviewed the labs, imaging studies, and electronic medical record. I reviewed the chart documentation and discussed the patient with treatment team members. I have edited the note to reflect my clinical findings and my assessment and plan. Please note, the time of this note does not reflect the time I saw this patient today, but the time of this documentaton. Portions of this note including HPI, ROS, impression/plan, and examination may have been copied forward from admission to today as to provide important historical information essential in contributing to medical decision making. Documentation has been reviewed and edited as necessary to support clinical decision making for today's visit and to reflect my own independent evaluation of this patient. Decision making for today's visit and to reflect my own independent evaluation of this patient. Associated Order(s): IP CONSULT TO UROLOGY Urology Inpatient Consultation 11/24/2023 HISTORY OF PRESENT ILLNESS: The patient is a 73 y.o. female known to us for hx of nephrolithiasis, NGB managed with chronic jose. She is currently admitted for AMS, urosepsis. Urology consulted for evaluation. Pts reporting L flank pain. Denies N/V, F/C. Work up: AF HDS WBC 5 Cr 0.81 Ucx >100k E coli, Providencia Bcx MRSE CT 9mm L UPJ calculus, no hydro PAST MEDICAL HISTORY: Past Medical History: Diagnosis Date A-fib (CMS/HCC) (HCC) Anemia Diabetes (HCC) Lymphedema Obesity PAST SURGICAL HISTORY: Past Surgical History: Procedure Laterality Date URETEROSCOPY Left 09/27/2023 Cytoscopy, left ureteral stent removal , left flexible ureteroscopic laser lithotripsy. Spear ALLERGIES: Ertapenem CURRENT MEDICATIONS: Current Facility-Administered Medications: acetaminophen (Tylenol) tablet 650 mg, 650 mg, Oral, q6h PRN OR acetaminophen (Tylenol) suppository 650 mg, 650 mg, Rectal, q6h PRN, Jeffry Sal MD apixaban (Eliquis) tablet 5 mg, 5 mg, Oral, BID, Jeffry Sal MD, 5 mg at 11/24/23841 atorvastatin (Lipitor) tablet 20 mg, 20 mg, Oral, Daily, Jeffry Sal MD, 20 mg at 11/24/2342 baclofen (Lioresal) tablet 5 mg, 5 mg, Oral, TID, Jeffry Sal MD, 5 mg at 11/24/23 0843 [Held by provider] bumetanide (Bumex) tablet 1 mg, 1 mg, Oral, BID, Jeffry Sal MD dextrose 5 % infusion, 100 mL/hr, IntraVENous, PRN, Jeffry Sal MD dextrose 50 % solution 12.5 g, 12.5 g, IntraVENous, PRN, Jeffry Sal MD Diclofenac Sodium (Voltaren) 1 % gel 4 g, 4 g, Topical, BID, Jeffry Sal MD, 4 g at 11/24/23 08 donepezil (Aricept) tablet 10 mg, 10 mg, Oral, Nightly, Jeffry Sal MD, 10 mg at 11/23/232099 gabapentin (Neurontin) capsule 300 mg, 300 mg, Oral, TID, Jeffry Sal MD, 300 mg at 11/24/23841 glucagon (human recombinant) injection 1 mg, 1 mg, IntraMUSCular, PRN, Jeffry Sal MD glucose oral gel 15 g, 15 g, Oral, PRN, Jeffry Sal MD insulin glargine (Lantus) injection 30 Units, 30 Units, SubCUTAneous, Nightly, Jeffry Sal MD, 30 Units at 11/23/232121 Insulin Lispro (Humalog) injection 0-6 Units, 0-6 Units, SubCUTAneous, TID WC, 3 Units at 11/24/23 0843 AND Insulin Lispro (Humalog) injection 0-6 Units, 0-6 Units, SubCUTAneous, Nightly, Jeffry Sal MD, 4 Units at 11/23/232121 Insulin Lispro (Humalog) injection 5 Units, 5 Units, SubCUTAneous, TID WC, Jeffry Sal MD, 5 Units at 11/24/23841 melatonin tablet 6 mg, 6 mg, Oral, Nightly, Jeffry Sal MD, 6 mg at 11/23/232121 meropenem (Merrem) 2,000 mg in sodium chloride 0.9 % 100 mL IVPB, 2,000 mg, IntraVENous, q8h, Faiza Campbell PA-C, Last Rate: 33.3 mL/hr at 11/24/23 0844, 2,000 mg at 11/24/23 0844 miconazole (Micotin) 2 % powder, , Topical, BID, Jeffry Sal MD, Given at 11/24/23 0843 naloxone (Narcan) injection 0.4 mg, 0.4 mg, IntraVENous, q5 min PRN, Jeffry Sal MD nystatin (Mycostatin) cream, , Topical, BID, Jeffry Sal MD, Given at 11/23/23 2132 ondansetron ODT (Zofran-ODT) disintegrating tablet 4 mg, 4 mg, Oral, q8h PRN OR ondansetron (Zofran) injection 4 mg, 4 mg, IntraVENous, q6h PRN, Jeffry Sal MD oxyCODONE (Roxicodone) immediate release tablet 5 mg, 5 mg, Oral, q4h PRN, Jeffry Sal MD, 5 mg at 11/24/23 0842 polyethylene glycol (PEG) 3350 (Miralax) packet 17 g, 17 g, Oral, Daily PRN, Jeffry Sal MD vancomycin IVPB 1500 mg in 250 mL NS (premix), 1,500 mg, IntraVENous, q18h, Jeffry Sal MD FAMILY HISTORY: No family history on file. Social History: Social History Tobacco Use Smoking status: Never Smokeless tobacco: Never Substance Use Topics Alcohol use: Never ROS: Constitutional: negative for chills and fevers Respiratory: negative for hemoptysis and shortness of breath Cardiovascular: negative for dyspnea and syncope Gastrointestinal: negative for jaundice, nausea and vomiting Genitourinary:negative for dysuria, hematuria, and flank pain Hematologic/lymphatic: negative for bleeding and lymphadenopathy Integumentary: no new bruises or lesions Musculoskeletal:negative for muscle weakness or pain Neurological: negative for coordination problems and seizures All other systems negative PHYSICAL EXAM: VITALS: BP 125/96 (BP Location: Right arm, Patient Position: Sitting) Pulse 86 Temp 36.1 C (97 F) (Temporal) Resp 18 Wt (!) 342 lb 9.6 oz (155 kg) SpO2 94% BMI 57.01 kg/m General: Alert, in no acute distress Head: Normocephalic, atraumatic Neck: supple, trachea is midline, no obvious masses Respiratory: no respiratory distress, normal effort, no audible wheezes Cardiovascular: regular pulse and no cyanosis Musculoskeletal: moving all extremities, normal tone Skin: warm and dry Psych: normal mood and affect, oriented Abdomen: soft, non distended, non tender, no organomegaly, no hernias : L flank pain DATA: LABS: BMP: Lab Results Component Value Date GLUCOSE 319 (H) 11/24/2023 CALCIUM 7.9 (L) 11/24/2023 NA 137 11/24/2023 K 4.1 11/24/2023 CO2 27 11/24/2023 CL 107 11/24/2023 BUN 25 (H) 11/24/2023 CREATININE 0.81 11/24/2023 CBC: Lab Results Component Value Date WBC 5.0 11/24/2023 HGB 10.1 (L) 11/24/2023 HCT 33.0 (L) 11/24/2023 MCV 99.4 (H) 11/24/2023 PLT 126 (L) 11/24/2023 Urinalysis: @LASTUA@ Urine Culture: No components found for: "LABURIN" RADIOLOGY: Patient Name: SALAZAR COYLE : 1950 Exam Date/Time: 11/23/2023 13:25 Procedure: CT ABDOMEN PELVIS WO IV CONTRAST Ordering Provider: CAMPBELL MADELINE Reason For Exam: chronic jose, h/o UTI/BSI, obs stones and stent placement. suprapubic L CVA pain. EXAMINATION: CT ABDOMEN PELVIS WO IV CONTRAST CLINICAL HISTORY: chronic Jose, h/o UTI/BSI, obstructive stones and stent placement. Suprapubic L CVA pain. COMPARISON: August 02, 2023 TECHNIQUE: CT of the abdomen and pelvis without contrast. Dose reduction was employed with automated exposure control. FINDINGS: Included images of the lower thorax: Minimal dependent atelectasis is noted in the bilateral lung bases. Hepatobiliary: Unremarkable liver without biliary dilation evident. Gallstones are present. There is no CT evidence for acute cholecystitis. Pancreas: Unremarkable Spleen: Focal ovoid low-attenuation lesion posteriorly in the spleen is again noted. It is somewhat obscured by the beam hardening artifact, but measures approximately 2.5 x 4.1 cm. Adrenal Glands: Unremarkable Kidneys and ureters: Calculus is noted at the level of the left UPJ measuring approximately 0.7 x 0.9 cm nonobstructive calculus is also noted within the left kidney measuring approximately 0.5 x 0.9 cm. Abdominal vasculature: Atherosclerotic wall calcifications are present without aneurysm. GI tract: No evidence of obstruction. The appendix is normal. Peritoneum and retroperitoneum: No free fluid or free air is noted. Lymph Nodes: No abdominal lymphadenopathy is evident. Pelvis: Jose catheter drains the bladder Visualized musculoskeletal structures: No acute fracture or destructive osseous lesion is identified. Impression: 1. Calculus at the level left UPJ measuring approximately 0.7 x 0.9 cm. Report Dictated on Electronically Signed By: Phillip Ng MD Electronically Signed Date/Time: 11/23/2023 3:07 PM EDT XR chest 1 view [[id number]] Collected: 11/22/232155 Order Status: Completed Updated: 11/22/232199 Narrative: Patient Name: SALAZAR COYLE : 1950 Exam Date/Time: 11/22/2023 21:50 Procedure: XR CHEST 1 VIEW Ordering Provider: CERVANTES DOUGLAS Reason For Exam: ALTERED MENTAL STATUS CHEST PORTABLE CLINICAL INDICATION: ALTERED MENTAL STATUS TECHNIQUE: Portable chest x-ray(s). COMPARISON: July,. FINDINGS: Patient rotated to the left. Cardiac silhouette prominent, which may be due in part to technique, but stable. Lungs are grossly clear. No significant vascular congestion. No apparent pneumothorax. Bony thorax grossly unremarkable. Impression: 1. No acute findings. IMPRESSION: 73 y.o. female with urosepsis, L UPJ calculus. PLAN: - CT reviewed - 9mm L UPJ calculus, no significant hydro but given location of stone and potential for obstruction will proceed with L ureteral stent placement - Pt was not NPO at time of consult so plan for L stent placement tomorrow - NPO @ midnight - IVF - Ucx >100k E coli, Providencia - Ucx staph hominis - IV Abx per ID - wbc 5, trend - Cr 0.81, trend - Pain/nausea control prn - maintain jose - jose is chronic - Page immediately with fevers/hypotension - rest of care per primary Thank you for allowing me to participate in the care of your patient. Kim Lowe MD Urology PGY-3 11/24/2023 10:29 AM -Please refer to automobile sales consultant finder and page automobile sales consultant resident with questions or concerns The history and physical has been reviewed. The pertinent findings from the history of present illness, past medical history, family history, social history, review of systems have been noted and confirmed that are unchanged. Discussed with the urology resident. Agree with assessment and plan Associated Order(s): INPATIENT CONSULT TO CRITICAL CARE - MEDICAL TEAM Images from the original note were not included. [facility], Critical Care and Pulmonary Medicine Patient - Salazar Coyle - 1950 Date of Admission - 11/22/2023 7:25 PM Date of evaluation - 11/23/2023 Room - [facility] A Hospital Day - 0 Consulting - Jeffry Sal MD Primary Care Physician - Paige Rivera DO Chief Complaint : Altered Mental Status (Pt arrives via EMS from [facility] for AMS. Per EMS pt began acting confused and BGT was elevated starting at 5pm. Pt A&Ox4 at baseline but was A&Ox2 for facility. Pt is A&Ox3 upon arrival. Pt c/o pain to left arm and left leg. ) Assessment & Recommendations Severe sepsis without shock Bacteremia Acute on chronic respiratory failure. Chronic co2 retention , recurrent prior respiratory failure Bmip 66, History of non compliance with failure to thrive Chronic jose with neurogenic bladder History of bacteremia Afib Plan: continue abx/ give ivf bolus , repeat la/ follow up clinical status. At this time no immediate indication for escalation to icu as hemodynamically and respiratory compensated. In setting of multiple co morbidities and prior hx, certainly at elevated risk to requiring icu during current admission, please notify icu if worsening mentation/ or change in clinical status/ Recommend trialing bipap nasal if pt will tolerate as chronic co2>65, positioninal limiation and opiate therapy prn with phoebe/ohs. Reason for Consult Lactic acidosis History of Present Illness Salazar Coyle is a very pleasant 73 y.o. female admitted for sepsis. Urineary / cellulitis source. Discussed with primary MD hospital. Complex case with severe multi organ chronic morbidity with hx of severe septiic shock and recurrent infectious and respiratory failures in past. Pt dnr/dni per past. Limited cooperation on eval with ccu fellow. Imaging / labs/ reports reviewed and interpreted independently Start fluid bolus, continue abx. Pt awake, oriented and with adequate respiratory reserve and mentation to communicate her discontent and request analgesia. Active Hospital Problem List Patient Active Problem List Diagnosis Hypertension Edema Foot ulcer ([facility]) Hyperlipemia Bladder spasm Type 2 diabetes mellitus with hyperglycemia ([facility]) Wounds, multiple Degenerative disc disease, cervical Chronic pain Osteoarthrosis PAF (paroxysmal atrial fibrillation) ([facility]) Cognitive decline Morbid obesity with BMI of 60.0-69.9, adult ([facility]) 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 ([facility]) Recurrent UTI Cerebrovascular accident ([facility]) Hyperglycemia Chronic indwelling Jose catheter CKD (chronic kidney disease) Asymptomatic bacteriuria Anemia Septic shock ([facility]) Inflammatory reaction due to indwelling ureteral stent, initial encounter ([facility]) Ureteropelvic junction calculus WHITLEY (acute kidney injury) ([facility]) Chronic venous stasis Radicular pain in right arm Severe sepsis ([facility]) Altered mental status, unspecified altered mental status type Medical History Past Medical History Past Medical History: Diagnosis Date A-fib ([facility]/HCC) ([facility]) Anemia Diabetes ([facility]) Lymphedema Obesity Past Surgical History Past Surgical History: Procedure Laterality Date URETEROSCOPY Left 09/27/2023 Cytoscopy, left ureteral stent removal , left flexible ureteroscopic laser lithotripsy. Spear Social History Social History Socioeconomic History Marital status: Spouse name: Not on file Number of children: Not on file Years of education: Not on file Highest education level: Not on file Occupational History Not on file Tobacco Use Smoking status: Never Smokeless tobacco: Never Vaping Use Vaping status: Never Used Substance and Sexual Activity Alcohol use: Never Drug use: Never Sexual activity: Not Currently Other Topics Concern Not on file Social History Narrative Not on file Social Determinants of Health Financial Resource Strain: Not on file Food Insecurity: Not on file Transportation Needs: Not on file Physical Activity: Not on file Stress: Not on file Social Connections: Not on file Intimate Partner Violence: Not At Risk (01/08/2023) Humiliation, Afraid, Rape, and Kick questionnaire Fear of Current or Ex-Partner: No Emotionally Abused: No Physically Abused: No Sexually Abused: No Housing Stability: Not on file Social History Tobacco Use Smoking status: Never Smokeless tobacco: Never Family History No family history on file. Immunization History Immunization History Administered Date(s) Administered Covid-19, Moderna Bivalent Booster, (Age 6y-11y) 05/10/2022 Influenza, High Dose Seasonal, Preservative Free 01/07/2018 Influenza, Unspecified 01/31/2017 Pfizer SARS-CoV-2 Vaccination 04/20/2020, 05/11/2020 Pneumococcal Polysaccharide PPSV23 01/31/2017 Smoking history- [] Occupational exposure- [] Asthma History [] COPD History [] IPF History [] Medications Current Medications apixaban, 5 mg, Oral, BID atorvastatin, 20 mg, Oral, Daily baclofen, 5 mg, Oral, TID [Held by provider] bumetanide, 1 mg, Oral, BID Diclofenac Sodium, 4 g, Topical, BID donepezil, 10 mg, Oral, Nightly gabapentin, 300 mg, Oral, TID insulin glargine, 30 Units, SubCUTAneous, Nightly insulin lispro, 0-6 Units, SubCUTAneous, TID WC And insulin lispro, 0-6 Units, SubCUTAneous, Nightly Insulin Lispro, 5 Units, SubCUTAneous, TID WC lactated ringers, 2,000 mL, IntraVENous, Once melatonin, 6 mg, Oral, Nightly meropenem, 2,000 mg, IntraVENous, q8h miconazole, , Topical, BID nystatin, , Topical, BID vancomycin, 1,500 mg, IntraVENous, q24h PRN Mediations PRN medications: acetaminophen OR acetaminophen, dextrose, dextrose, glucagon (rDNA), glucose, naloxone, ondansetron ODT OR ondansetron, oxyCODONE, polyethylene glycol (PEG) 3350 IV Drips/Infusions sodium chloride, 150 mL/hr, Last Rate: 150 mL/hr (11/23/232029) Home Medications Current Outpatient Medications Medication Instructions acetaminophen (TYLENOL) 325 mg, Oral, 3 times daily apixaban (ELIQUIS) 5 mg, Oral, 2 times daily ascorbic acid (VITAMIN C) 250 mg, Oral, Daily atorvastatin (LIPITOR) 20 mg, Oral, Daily baclofen (Lioresal) 5 MG tablet 1 tablet, Oral, 3 times daily bumetanide (BUMEX) 1 mg, Oral, 2 times daily Calcium Carbonate-Vitamin D (Oyster Shell Calcium/D) 500-5 MG-MCG tablet 1 tablet, Oral, Daily Diclofenac Sodium (VOLTAREN) 4 g, Topical, 2 times daily donepezil (ARICEPT) 10 mg, Oral, Nightly gabapentin (NEURONTIN) 300 mg, Oral, 3 times daily insulin glargine (LANTUS) 30 Units, SubCUTAneous, Nightly Insulin Lispro (HUMALOG) 5 Units, SubCUTAneous, 3 times daily with meals nystatin (Mycostatin) 737449 UNIT/GM powder No dose, route, or frequency recorded. oxyCODONE (OXY-IR) 5 mg, Oral senna-docusate (Helena-Colace) 8.6-50 MG tablet 100 tablets, Oral, Every 24 hours sertraline (ZOLOFT) 50 mg, Oral, Daily Allergies Allergies Allergen Reactions Ertapenem Patient tolerated July 2022 Tolerated meropenem August 2023 Review of Systems Reviewed Review of Systems Vitals weight is 400 lb (181 kg) (abnormal). Her temporal temperature is 36.2 C (97.1 F). Her blood pressure is 124/89 and her pulse is 98. Her respiration is 12 and oxygen saturation is 93%. Body mass index is 66.56 kg/m . 24 Hour intake and output Intake/Output Summary (Last 24 hours) at 11/23/20232236 Last data filed at 11/23/2023 2030 Gross per 24 hour Intake 1240 ml Output 900 ml Net 340 ml Wt Readings from Last 10 Encounters: 11/22/23 (!) 400 lb (181 kg) 09/27/23 (!) 350 lb (159 kg) 09/25/23 (!) 350 lb (159 kg) 07/31/23 (!) 350 lb (159 kg) 01/08/23 (!) 320 lb 6.4 oz (145 kg) 08/02/22 (!) 343 lb (156 kg) 07/31/22 (!) 343 lb 14.7 oz (156 kg) 07/11/22 (!) 344 lb (156 kg) 06/15/22 (!) 344 lb 9.3 oz (156 kg) Physical Exam Physical Exam Additional Findings Labs CBC Results from last 7 days Lab Units 11/23/23 0444 WBC AUTO 10*3/uL 7.4 HEMOGLOBIN g/dL 10.3* HEMATOCRIT % 33.2* PLATELETS AUTO 10*3/uL 146 No results found for: "CBCDIF", QAFUMIGATUS Eosinophils Absolute Date Value Ref Range Status 11/22/2023 0.2 0.0 - 0.5 10*3/uL Final 08/09/2023 0.2 0.0 - 0.5 10*3/uL Final 08/08/2023 0.4 0.0 - 0.5 10*3/uL Final BMP: Results from last 7 days Lab Units 11/23/23 0444 11/22/23 2134 SODIUM mmol/L 137 137 POTASSIUM mmol/L 3.9 4.5 CHLORIDE mmol/L 107 103 CO2 mmol/L 26 29 BUN mg/dL 24* 28* CREATININE mg/dL 0.79 0.91 GLUCOSE mg/dL 327* 350* CALCIUM mg/dL 8.1* 8.7 ABG: Results from last 7 days Lab Units 11/23/23 0051 SOURCE OF OXYGEN Room Air LIVER PROFILE Results from last 7 days Lab Units 11/23/23 0444 11/22/23 2134 ALK PHOS U/L 78 82 BILIRUBIN TOTAL mg/dL 0.4 0.8 PROTEIN TOTAL g/dL 5.8* 6.9 ALT U/L 15 16 AST U/L 21 36 INR PTT No results found for: "PTT" Cultures Reviewed No results for input(s): "COVID19" in the last 72 hours. Admission on 11/22/2023 Component Date Value Ref Range Status Glucose 11/22/2023 390 (H) 70 - 100 mg/dL Final Auto WBC 11/22/2023 7.4 3.6 - 10.7 10*3/uL Final RBC 11/22/2023 3.75 (L) 3.80 - 5.20 10*6/uL Final Hemoglobin 11/22/2023 11.7 11.7 - 16.0 g/dL Final Hematocrit 11/22/2023 37.0 35.0 - 47.0 % Final MCV 11/22/2023 98.7 77.0 - 99.0 fL Final MCH 11/22/2023 31.2 26.0 - 34.0 pg Final MCHC 11/22/2023 31.6 30.5 - 36.0 % Final RDW 11/22/2023 15.8 (H) 11.5 - 15.0 % Final Platelets 11/22/2023 138 (L) 140 - 440 10*3/uL Final MPV 11/22/2023 11.9 9.0 - 12.7 fL Final nRBC 11/22/2023 0.0 0.0 - 2.0 /100 WBCs Final Neutrophils Relative 11/22/2023 72.8 38.0 - 82.0 % Final Lymphocytes Relative 11/22/2023 17.3 15.0 - 45.0 % Final Monocytes Relative 11/22/2023 6.9 5.0 - 13.0 % Final Eosinophils Relative 11/22/2023 2.3 0.0 - 6.0 % Final Basophils Relative 11/22/2023 0.3 0.0 - 2.0 % Final Immature Grans % 11/22/2023 0.4 0.0 - 2.0 % Final Neutrophils Absolute 11/22/2023 5.4 1.8 - 7.5 10*3/uL Final Lymphocytes Absolute 11/22/2023 1.3 1.0 - 4.3 10*3/uL Final Monocytes Absolute 11/22/2023 0.5 0.0 - 0.9 10*3/uL Final Eosinophils Absolute 11/22/2023 0.2 0.0 - 0.5 10*3/uL Final Basophils Absolute 11/22/2023 0.0 0.0 - 0.2 10*3/uL Final Immature Grans Absolute 11/22/2023 0.0 <0.1 10*3/uL Final SODIUM 11/22/2023 137 135 - 145 mmol/L Final POTASSIUM 11/22/2023 4.5 3.5 - 5.1 mmol/L Final CHLORIDE 11/22/2023 103 98 - 107 mmol/L Final CARBON DIOXIDE 11/22/2023 29 22 - 30 mmol/L Final ANION GAP 11/22/2023 4 3 - 13 mmol/L Final UREA NITROGEN 11/22/2023 28 (H) 7 - 17 mg/dL Final CREATININE 11/22/2023 0.91 0.52 - 1.04 mg/dL Final GLUCOSE 11/22/2023 350 (H) 70 - 100 mg/dL Final CALCIUM 11/22/2023 8.7 8.4 - 10.4 mg/dL Final AST (SGOT) 11/22/2023 36 15 - 46 U/L Final ALT 11/22/2023 16 0 - 34 U/L Final ALKALINE PHOSPHATASE 11/22/2023 82 38 - 126 U/L Final ALBUMIN 11/22/2023 3.4 (L) 3.5 - 5.0 g/dL Final BILIRUBIN, TOTAL 11/22/2023 0.8 0.2 - 1.3 mg/dL Final TOTAL PROTEIN 11/22/2023 6.9 6.3 - 8.2 g/dL Final eGFR 11/22/2023 65.9 >60.0 mL/min/1.73m*2 Final TROPONIN I 11/22/2023 <0.012 <0.034 ng/mL Final THYROID STIMULATING HORMONE 11/22/2023 1.649 0.465 - 4.680 uIU/mL Final FREE T4 11/22/2023 2.06 0.78 - 2.19 ng/dL Final Heart Rate 11/22/2023 69 bpm Final QRSD Interval 11/22/2023 144 ms Final QT Interval 11/22/2023 478 ms Final QTC Interval 11/22/2023 512 ms Final P [place] 11/22/2023 0 degrees Final QRS [place] 11/22/2023 14 degrees Final T Wave [place] 11/22/2023 72 degrees Final NJ Interval 11/22/2023 90 ms Final BETA HYDROXYBUTYRATE 11/22/2023 2.08 0.20 - 2.81 mg/dL Final pH, Venous 11/23/2023 7.333 7.330 - 7.430 Final pCO2, Venous 11/23/2023 63.3 (H) 40.0 - 55.0 mm Hg Final pO2, Venous 11/23/2023 34.8 mm Hg Final HCO3, Venous 11/23/2023 32.9 (H) 23.0 - 27.0 mmol/L Final O2 Sat, Venous 11/23/2023 61.7 % Final Base Excess, Venous 11/23/2023 5.1 (H) -3.0 - 3.0 mmol/L Final Hgb, blood gas 11/23/2023 13.3 Screen only g/dl Final TCO2, Venous 11/23/2023 34.8 (H) 24.0 - 28.0 mmol/L Final Source Of Oxygen 11/23/2023 Room Air Final Color, Urine 11/22/2023 Light Yellow Lt. Yellow Final Clarity, Urine 11/22/2023 Clear Clear Final pH, Urine 11/22/2023 7.0 5.0 - 8.0 pH Final Leukocytes, Urine 11/22/2023 250 (A) Negative Jimenez/uL Final Nitrite, Urine 11/22/2023 Positive (A) Negative Final Protein, Urine 11/22/2023 70 (A) Negative mg/dL Final Glucose, Urine 11/22/2023 >1,000 (A) Normal (<70) mg/dL Final Bilirubin, Urine 11/22/2023 Negative Negative mg/dL Final Ketones, Urine 11/22/2023 Negative Negative mg/dL Final Urobilinogen, Urine 11/22/2023 Normal Normal (0-1) mg/dL Final Blood, Urine 11/22/2023 0.2 (A) Negative mg/dL Final RBC, Urine 11/22/2023 26-50 (A) 0 - 2 /HPF Final WBC, Urine 11/22/2023 26-50 (A) 0 - 5 /HPF Final Squamous Epithelial, Urine 11/22/2023 0-2 3 - 5 /HPF Final Bacteria, Urine 11/22/2023 Moderate (A) Negative /HPF Final Mucus, Urine 11/22/2023 Few Negative /LPF Final Hyaline Casts, Urine 11/22/2023 Negative Negative /LPF Final SPECIFIC GRAVITY OF URINE (NUMERIC) 11/22/2023 1.019 1.005 - 1.030 Final SARS-CoV-2 11/22/2023 Not Detected Not Detected Final Respiratory Syncytial Virus 11/22/2023 Not Detected Not Detected Final Influenza A 11/22/2023 Not Detected Not Detected Final Influenza B 11/22/2023 Not Detected Not Detected Final LACTIC ACID 11/22/2023 2.6 (H) 0.7 - 2.0 mmol/L Final Blood Culture 11/22/2023 Gram-positive cocci (AA) Preliminary Blood Culture 11/22/2023 Gram-positive cocci (AA) Preliminary LACTIC ACID 11/23/2023 2.7 (H) 0.7 - 2.0 mmol/L Final TROPONIN I 11/23/2023 0.012 <0.034 ng/mL Final TROPONIN I 11/23/2023 0.012 <0.034 ng/mL Final SODIUM 11/23/2023 137 135 - 145 mmol/L Final POTASSIUM 11/23/2023 3.9 3.5 - 5.1 mmol/L Final CHLORIDE 11/23/2023 107 98 - 107 mmol/L Final CARBON DIOXIDE 11/23/2023 26 22 - 30 mmol/L Final ANION GAP 11/23/2023 4 3 - 13 mmol/L Final UREA NITROGEN 11/23/2023 24 (H) 7 - 17 mg/dL Final CREATININE 11/23/2023 0.79 0.52 - 1.04 mg/dL Final GLUCOSE 11/23/2023 327 (H) 70 - 100 mg/dL Final CALCIUM 11/23/2023 8.1 (L) 8.4 - 10.4 mg/dL Final AST (SGOT) 11/23/2023 21 15 - 46 U/L Final ALT 11/23/2023 15 0 - 34 U/L Final ALKALINE PHOSPHATASE 11/23/2023 78 38 - 126 U/L Final ALBUMIN 11/23/2023 2.8 (L) 3.5 - 5.0 g/dL Final BILIRUBIN, TOTAL 11/23/2023 0.4 0.2 - 1.3 mg/dL Final TOTAL PROTEIN 11/23/2023 5.8 (L) 6.3 - 8.2 g/dL Final eGFR 11/23/2023 78.1 >60.0 mL/min/1.73m*2 Final Auto WBC 11/23/2023 7.4 3.6 - 10.7 10*3/uL Final RBC 11/23/2023 3.36 (L) 3.80 - 5.20 10*6/uL Final Hemoglobin 11/23/2023 10.3 (L) 11.7 - 16.0 g/dL Final Hematocrit 11/23/2023 33.2 (L) 35.0 - 47.0 % Final MCV 11/23/2023 98.8 77.0 - 99.0 fL Final MCH 11/23/2023 30.7 26.0 - 34.0 pg Final MCHC 11/23/2023 31.0 30.5 - 36.0 % Final RDW 11/23/2023 15.7 (H) 11.5 - 15.0 % Final Platelets 11/23/2023 146 140 - 440 10*3/uL Final MPV 11/23/2023 11.4 9.0 - 12.7 fL Final MAGNESIUM 11/23/2023 1.9 1.6 - 2.3 mg/dL Final HEMOGLOBIN A1C 11/23/2023 9.4 (H) <5.7 % Final ESTIMATED AVERAGE GLUCOSE 11/23/2023 223 mg/dL Final LACTIC ACID 11/23/2023 2.9 (H) 0.7 - 2.0 mmol/L Final LACTIC ACID 11/23/2023 2.8 (H) 0.7 - 2.0 mmol/L Final Glucose 11/23/2023 296 (H) 70 - 100 mg/dL Final LACTIC ACID 11/23/2023 4.4 (HH) 0.7 - 2.0 mmol/L Final Staphylococcus epidermidis 11/22/2023 Detected (A) Not Detected Final mecA/C (MRSE/MRSL) 11/22/2023 Detected (A) Not Detected Final Glucose 11/23/2023 313 (H) 70 - 100 mg/dL Final Glucose 11/23/2023 295 (H) 70 - 100 mg/dL Final Glucose 11/23/2023 330 (H) 70 - 100 mg/dL Final Blood cultures: No components found for: "BC" Respiratory cx: No components found for: RESPCULTURE No components found for: "LABANAE" Not Detected Lab Results Component Value Date PSEUDOMONASA Not Detected 08/01/2023 STREPAGALACT Not Detected 08/01/2023 STREPPNEUMON Not Detected 08/01/2023 Lab Results Component Value Date STREPPYOGENE Not Detected 08/01/2023 HAEMOPHILUSI Not Detected 08/01/2023 MORAXELLACAT Not Detected 08/01/2023 KLEBSIELLA Not Detected 08/01/2023 INFLUENZAA Not Detected 11/22/2023 PARAINFLUENZ Not Detected 08/01/2023 RSV Not Detected 11/22/2023 RHINOENTERO Detected (A) 08/01/2023 ADENOVIRUS Not Detected 08/01/2023 No results found for: "PTT" Lab Results Component Value Date RESPCULT No growth of normal respiratory gaby. 08/01/2023 LABGRAM 08/01/2023 Few Polymorphonuclear leukocytes per low power field LABGRAM Few Epithelial cells per low power field 08/01/2023 LABGRAM No organisms seen 08/01/2023 Bronch resu Pleural resu Lab Results Component Value Date LDH 180 03/08/2021 PROT 5.8 (L) 11/23/2023 ALBUMIN 2.8 (L) 11/23/2023 -- No results found for: "FLUIDTYPE", "NCFL", "RBCFL", "LABLYMP", "OCF", DIFFCOUNT Additional Clinical Data Scheduled Meds apixaban, 5 mg, Oral, BID atorvastatin, 20 mg, Oral, Daily baclofen, 5 mg, Oral, TID [Held by provider] bumetanide, 1 mg, Oral, BID Diclofenac Sodium, 4 g, Topical, BID donepezil, 10 mg, Oral, Nightly gabapentin, 300 mg, Oral, TID insulin glargine, 30 Units, SubCUTAneous, Nightly insulin lispro, 0-6 Units, SubCUTAneous, TID WC And insulin lispro, 0-6 Units, SubCUTAneous, Nightly Insulin Lispro, 5 Units, SubCUTAneous, TID WC lactated ringers, 2,000 mL, IntraVENous, Once melatonin, 6 mg, Oral, Nightly meropenem, 2,000 mg, IntraVENous, q8h miconazole, , Topical, BID nystatin, , Topical, BID vancomycin, 1,500 mg, IntraVENous, q24h Continuous Infusions: sodium chloride, 150 mL/hr, Last Rate: 150 mL/hr (11/23/232029) Weight (!) 400 lb (181 kg) (11/22/230) BMI Body mass index is 66.56 kg/m . [facility] Labs within last 24 hours- BMP: Recent Labs 11/22/234 11/23/23 0444 NA 137 137 K 4.5 3.9 CL 103 107 CO2 29 26 BUN 28* 24* CREATININE 0.91 0.79 CALCIUM 8.7 8.1* MG -- 1.9 LFTs: Recent Labs 11/22/23213311/22/23223011/23/23443 AST 36 -- 21 ALT 16 -- 15 PROT 6.9 -- 5.8* ALBUMIN 3.4* -- 2.8* BILITOT 0.8 -- 0.4 BILIRUBINU -- Negative -- ALKPHOS 82 -- 78 Glucose: Recent Labs 11/22/23201711/22/23213311/23/2344311/23/23 0747 11/23/23 1248 11/23/23 1659 11/23/232056 GLUCOSE -- 350* 327* -- -- -- -- POCGLU 390* -- -- 296* 313* 295* 330* BHYDRXBUT -- 2.08 -- -- -- -- -- Procal: No results for input(s): "PROCAL" in the last 72 hours. CBC: Recent Labs 11/22/23213311/23/235011/23/23443 WBC 7.4 -- 7.4 HGB 11.7 13.3 10.3* HCT 37.0 -- 33.2* PLT 138* -- 146 MCV 98.7 -- 98.8 RDW 15.8* -- 15.7* ABGs: Recent Labs 11/23/2350 [id number] Room Air Lactic Acid: Recent Labs 11/23/2344311/23/23 1019 11/23/23 1916 LACTATE 2.9* 2.8* 4.4* INR: No results for input(s): "INR" in the last 72 hours. Cardiac Injury Profile: Recent Labs 11/22/23213311/23/235011/23/23443 TROPONINI <0.012 0.012 0.012 Labs in Last 3 months: Lab Results Component Value Date TSH 1.649 11/22/2023 INR 1.1 08/02/2023 Microbiology- Procal: No results for input(s): "PROCAL" in the last 72 hours. Blood Cx: Lab Results Component Value Date BLOODCX Gram-positive cocci (AA) 11/22/2023 BLOODCX Gram-positive cocci (AA) 11/22/2023 Sputum Cx: Lab Results Component Value Date RESPCULT No growth of normal respiratory gaby. 08/01/2023 Gram Stain: Lab Results Component Value Date LABGRAM 08/01/2023 Few Polymorphonuclear leukocytes per low power field LABGRAM Few Epithelial cells per low power field 08/01/2023 LABGRAM No organisms seen 08/01/2023 PNA PCR: Lab Results Component Value Date HUMANMETAPNE Not Detected 08/01/2023 COVID19: No results found for: COVID19 Legionella Ag: Lab Results Component Value Date LEGIONELLAPN Not Detected 08/01/2023 Strep Ag: No results for input(s): "STREPPNEUMO" in the last 72 hours. Urine Cx: Lab Results Component Value Date URINECX Normal urogenital gaby present 07/30/2023 URINECX 50,000-90,000 CFU/mL Escherichia coli (A) 07/30/2023 Imaging- personally reviewed and interpreted independently CXR portable:Results for orders placed during the hospital encounter of 11/22/23 XR chest 1 view Narrative [facility] 1950 [id number] Exam Date/Time: 11/22/2023 21:50 Procedure: XR CHEST 1 VIEW Ordering Provider: CERVANTES DOUGLAS Reason For Exam: ALTERED MENTAL STATUS CHEST PORTABLE CLINICAL INDICATION: ALTERED MENTAL STATUS TECHNIQUE: Portable chest x-ray(s). COMPARISON: July,. FINDINGS: Patient rotated to the left. Cardiac silhouette prominent, which may be due in part to technique, but stable. Lungs are grossly clear. No significant vascular congestion. No apparent pneumothorax. Bony thorax grossly unremarkable. Impression 1. No acute findings. Report Dictated on Electronically Signed By: Sy Akins MD Electronically Signed Date/Time: 11/22/2023 9:59 PM EDT CXR (2V): No results found for this or any previous visit. CT Chest: Results for orders placed during the hospital encounter of 07/30/23 CT chest wo IV contrast Narrative Patient Name: SALAZAR COYLE : 1950 [facility]#: [id number] Exam Date/Time: 08/02/2023 16:57 Procedure: CT CHEST WO IV CONTRAST Ordering Provider: DEL REAL CHELSEA Reason For Exam: Dyspnea, chronic, unclear etiology CT CHEST WITHOUT CONTRAST: CLINICAL INDICATION: Dyspnea, chronic, unclear etiology TECHNIQUE: Transaxial sequence through the chest from apices through the bases at 1 mm reconstruction interval. Coronal and sagittal reconstruction images reviewed. Dose reduction was employed with automated exposure control. LIMITATIONS: Lack of intravenous contrast material limits evaluation of the vascular and soft tissue structures. COMPARISON: Chest radiograph from 08/02/2023 FINDINGS: Lungs: Endotracheal tube terminates in the mid to distal trachea. Consolidation and volume loss of the majority of the left lower lobe, aside from sparing of the superior segment. There is associated left lower lobe endobronchial mucous plugging. Mild dependent right lower lobe atelectasis.. Pleural fluid: Small bilateral pleural effusions. Heart/Great vessels: Right jugular venous catheter terminates in the lower SVC. Mild atherosclerotic calcification of the thoracic aorta. Cardiomegaly. Aortic valve calcification. Mitral annulus calcification. Coronary Arteries: Moderate coronary artery calcification. Mediastinum/Kavya: Enteric tube extends into the stomach. Upper abdomen: Refer to separate CT abdomen pelvis report from the same date. Osseous structures: Degenerative change of the spine. Right glenohumeral joint DJD. Left glenohumeral joint DJD. Bilateral sternoclavicular joint DJD.. Chest wall and lower neck: No abnormality. Impression Subtotal consolidation and volume loss of the left lower lobe, with associated endobronchial mucous plugging, favored to reflect a combination of atelectasis and pneumonia. Small bilateral pleural effusions. Cardiomegaly and moderate coronary artery calcifications.. Report Dictated on Electronically Signed By: Leonor Cardona MD Electronically Signed Date/Time: 08/03/2023 8:03 AM EDT CTA Chest: No results found for this or any previous visit. Echo : Transthoracic echocardiogram (TTE) complete with contrast, bubble, strain, and 3D PRN Result Date: 07/31/2023 Left Ventricle: Left ventricle size is normal. Mildly increased wall thickness. Normal left ventricular systolic function. EF by 2D Simpsons Biplane is 63%. Normal wall motion. Right Ventricle: Right ventricle size is normal. Normal systolic function. Aortic Valve: Trileaflet. No cusp thickening. Mildly calcified cusps. Mild annular calcification. No regurgitation. Valve appears to open well velocities suggest Mild stenosis of the aortic valve. AV mean gradient is 9 mmHg. AV area by continuity VTI is 2.3 cm2. Left Atrium: Left atrium is dilated. Pulmonary function tests (PFT's) Reviewed when available Sleep History Reviewed when available Radiology Pertinent radiology results reviewed. Discussed in HPI and AP. GI/ DVT prophylaxis as indicated. The USPSTF recommends annual screening for lung cancer with low-dose computed tomography (LDCT) in adults aged 50 to 80 years who have a 20 pack-year smoking history and currently smoke or have quit within the past 15 years. Screening should be discontinued once a person has not smoked for 15 years or develops a health problem that substantially limits life expectancy or the ability or willingness to have curative lung surgery. Advance Directive: DNR-CCA Discharge planning: TBD Case discussed with patient and medical team Questions and concerns addressed.. CORE MEASURE DATA SIRS Criteria Sepsis Criteria Severe Sepsis Criteria Septic Shock Criteria Must meet 2: [x] Temperature > 100.4 F (38 C) or < 96.8 F (36 C) [x] HR > 90 [] RR > 20 [] WBC > 12 or < 4 or 10% bands Must be confirmed or suspected to move forward with diagnosis of sepsis. Must select at least one: [x] Bacterial Infection Confirmed or Suspected. [] Viral Infection Confirmed or Suspected. [] No infection present. Patient does not meet criteria for Sepsis. Must meet 1: [x] Lactate > 2 or [] Signs of Organ Dysfunction: - SBP < 90 or MAP < 65 - Altered mental status - Creatinine > 2 or increased from baseline - Urine Output < 0.5 ml/kg/hr - Bilirubin > 2 - INR > 1.5 - Platelets < 100,000 - Acute Respiratory Failure as evidenced by new need for NIPPV or mechanical ventilation [] No criteria met for Severe Sepsis. Must meet 1: [x] Lactate = or > 4 or [] SBP < 90 or MAP < 65 for at least two readings in the first hour after fluid bolus administration [] No criteria met for Septic Shock. Patient Vitals from 11/22/23 2301 to 11/23/23 0000 Weight 11/22/23 2340 (!) 400 lb (181 kg) Recent Labs 11/22/23 2134 11/23/23 0228 11/23/23 0444 11/23/23 1019 11/23/23 1916 WBC 7.4 -- 7.4 -- -- LACTATE 2.6* < > 2.9* 2.8* 4.4* CREATININE 0.91 -- 0.79 -- -- BILITOT 0.8 -- 0.4 -- -- PLT 138* -- 146 -- -- < > = values in this interval not displayed. Ivf/ abx/ Cristino Bruno DO [facility] Department of Pulmonary and Critical Care Medicine Thank you for allowing us to participate in the care of this patient. Associated Order(s): IP CONSULT TO INFECTIOUS DISEASES Images from the original note were not included. [facility] - Infectious Diseases Advanced Practice Provider Consult Note Reason for Consult: Hx of ESBL bacteremia History of Present Illness: This is a 73 yo F with a PMH of afib, anemia, DM, chronic jose d/t neurogenic bladder known to our group for previous admission 05/2022 for ESBL e coli complicated UTI/bacteremia secondary to obstructive proximal ureteral calculus s/p emergent cysto/L ureteral stent placement on 06/10. Per op note, the urine aspirated was purulent. Pt was given a 2 week IV course of ertapenem through 06/24. Pt had scheduled outpt stent removal but missed multiple appts d/t transportation issues. Given missed appts -> was admitted for cystoscopy, L urteroscopy w laser lithotripsy, L ureteral stent exchange on 08/03/22. Urine cx NG. Pt presented again to [facility] ED on 07/30/23 with chief complaint of AMS and noted to have purulence from chronic jose. Underwent L ureteral stent placement on 07/31/23. Blood cx this admission + ESBL e coli. Was given a 2 week course from sterility with meropenem and had plans for surveillance blood cx 1 week after therapy. Pt had L ureteral stent removed on 09/27/23. Pt now presents with AMS and lethargy. CT head negative. Given hx, pt was started on meropenem and vanc. Pt is alert and conversant during exam this AM. She is unsure what brought her in to the ER. She denies fever, chills, SOB, abd pain, urinary symptoms, abd pain, n/v/d. Does endorse pain in her R leg. Is unsure when she had her jose last exchanged. Afebrile. UA with 26-50 WBC. 2/2 blood cx collected. WBC 7.4. Urine cx in process. Past Medical Hist ory: Past Medical History: Diagnosis Date A-fib (CMS/HCC) (HCC) Anemia Diabetes (HCC) Lymphedema Obesity Past Surgical History: Past Surgical History: Procedure Laterality Date URETEROSCOPY Left 09/27/2023 Cytoscopy, left ureteral stent removal , left flexible ureteroscopic laser lithotripsy. Spear Current Medications: Current Facility-Administered Medications Medication Dose Route Frequency Provider Last Rate Last Admin acetaminophen (Tylenol) tablet 650 mg 650 mg Oral q6h PRN Jeffry Sal MD Or acetaminophen (Tylenol) suppository 650 mg 650 mg Rectal q6h PRN Jeffry Sal MD apixaban (Eliquis) tablet 5 mg 5 mg Oral BID Jeffry Sal MD 5 mg at 11/23/23 0816 atorvastatin (Lipitor) tablet 20 mg 20 mg Oral Daily Jeffry Sal MD 20 mg at 11/23/23 0816 baclofen (Lioresal) tablet 5 mg 5 mg Oral TID Jeffry Sal MD 5 mg at 11/23/23 0816 [Held by provider] bumetanide (Bumex) tablet 1 mg 1 mg Oral BID Jeffry Sal MD dextrose 5 % infusion 100 mL/hr IntraVENous PRN Jeffry Sal MD dextrose 50 % solution 12.5 g 12.5 g IntraVENous PRN Jeffry Sal MD Diclofenac Sodium (Voltaren) 1 % gel 4 g 4 g Topical BID Jeffry Sal MD 4 g at 11/23/23 0310 donepezil (Aricept) tablet 10 mg 10 mg Oral Nightly Jeffry Sal MD gabapentin (Neurontin) capsule 300 mg 300 mg Oral TID Jeffry Sal MD 300 mg at 11/23/23 0816 glucagon (human recombinant) injection 1 mg 1 mg IntraMUSCular PRN Jeffry Sal MD glucose oral gel 15 g 15 g Oral PRN Jeffry Sal MD insulin glargine (Lantus) injection 30 Units 30 Units SubCUTAneous Nightly Jeffry Sal MD Insulin Lispro (Humalog) injection 0-6 Units 0-6 Units SubCUTAneous TID Jeffry Sal MD 3 Units at 11/23/23 0815 And Insulin Lispro (Humalog) injection 0-6 Units 0-6 Units SubCUTAneous Nightly Jeffry Sal MD Insulin Lispro (Humalog) injection 5 Units 5 Units SubCUTAneous TID Jeffry Sal MD 5 Units at 11/23/23 0826 melatonin tablet 6 mg 6 mg Oral Nightly Jeffry Sal MD meropenem (Merrem) 2,000 mg in sodium chloride 0.9 % 100 mL IVPB 2,000 mg IntraVENous q8h Giuliana Aparicio DO Stopped at 11/23/23 0351 miconazole (Micotin) 2 % powder Topical BID Jeffry Sal MD Given at 11/23/23 0310 nystatin (Mycostatin) cream Topical BID Jeffry Sal MD ondansetron ODT (Zofran-ODT) disintegrating tablet 4 mg 4 mg Oral q8h PRN Jeffry Sal MD Or ondansetron (Zofran) injection 4 mg 4 mg IntraVENous q6h PRN Jeffry Sal MD polyethylene glycol (PEG) 3350 (Miralax) packet 17 g 17 g Oral Daily PRN Jeffry Sal MD sodium chloride 0.9 % infusion 100 mL/hr IntraVENous Continuous Jeffry Sal MD 100 mL/hr at 11/23/23 0801 100 mL/hr at 11/23/23 0801 vancomycin IVPB 1500 mg in 250 mL NS (premix) 1,500 mg IntraVENous q24h Jeffry Sal MD 125 mL/hr at 11/23/23 0445 1,500 mg at 11/23/23 0445 Current Outpatient Medications Medication Sig Dispense Refill acetaminophen (Tylenol) 325 MG tablet Take 325 mg by mouth 3 times daily. apixaban (Eliquis) 5 MG tablet Take 5 mg by mouth 2 times daily. ascorbic acid (Vitamin C) 250 MG tablet Take 250 mg by mouth daily. atorvastatin (Lipitor) 20 MG tablet Take 20 mg by mouth daily. baclofen (Lioresal) 5 MG tablet Take 1 tablet by mouth 3 times daily. bumetanide (Bumex) 1 MG tablet Take 1 tablet (1 mg) by mouth in the morning and 1 tablet (1 mg) in the evening. 60 tablet 2 Calcium Carbonate-Vitamin D (Oyster Shell Calcium/D) 500-5 MG-MCG tablet Take 1 tablet by mouth daily. Diclofenac Sodium (Voltaren) 1 % gel Apply 4 g topically 2 times daily. 50 g 1 donepezil (Aricept) 10 MG tablet Take 10 mg by mouth Nightly. gabapentin (Neurontin) 100 MG capsule Take 3 capsules (300 mg) by mouth 3 times daily. 180 capsule 2 insulin glargine (Lantus) 100 UNIT/ML injection Inject 30 Units under the skin Nightly. 9 mL 0 Insulin Lispro (Humalog) 100 UNIT/ML solution injection Inject 5 Units under the skin in the morning and 5 Units at noon and 5 Units in the evening. Inject with meals. 10 mL 2 nystatin (Mycostatin) 586152 UNIT/GM powder oxyCODONE (Oxy-IR) 5 MG immediate release capsule Take 5 mg by mouth. senna-docusate (Helena-Colace) 8.6-50 MG tablet Take 100 tablets by mouth Every 24 hours. sertraline (Zoloft) 50 MG tablet Take 50 mg by mouth daily. Allergies: Allergies Allergen Reactions Ertapenem Patient tolerated July 2022 Tolerated meropenem August 2023 Social History: Social History Socioeconomic History Marital status: Spouse name: Not on file Number of children: Not on file Years of education: Not on file Highest education level: Not on file Occupational History Not on file Tobacco Use Smoking status: Never Smokeless tobacco: Never Vaping Use Vaping status: Never Used Substance and Sexual Activity Alcohol use: Never Drug use: Never Sexual activity: Not Currently Other Topics Concern Not on file Social History Narrative Not on file Social Determinants of Health Financial Resource Strain: Not on file Food Insecurity: Not on file Transportation Needs: Not on file Physical Activity: Not on file Stress: Not on file Social Connections: Not on file Intimate Partner Violence: Not At Risk (01/08/2023) Humiliation, Afraid, Rape, and Kick questionnaire Fear of Current or Ex-Partner: No Emotionally Abused: No Physically Abused: No Sexually Abused: No Housing Stability: Not on file Family History: No family history on file. Review of Systems: Review of Systems Constitutional: Negative for activity change, appetite change, chills and fever. HENT: Negative for ear discharge, facial swelling, hearing loss, sore throat, trouble swallowing and voice change. Eyes: Negative for photophobia, discharge, redness, itching and visual disturbance. Respiratory: Negative for apnea, cough, shortness of breath and wheezing. Cardiovascular: Negative for chest pain, palpitations and leg swelling. Gastrointestinal: Negative for abdominal distention, abdominal pain, blood in stool, constipation, diarrhea, nausea and vomiting. Genitourinary: Negative for difficulty urinating, dysuria, flank pain, frequency, hematuria and urgency. Musculoskeletal: Positive for arthralgias. Negative for back pain, gait problem, joint swelling, neck pain and neck stiffness. Skin: Negative for color change, rash and wound. Neurological: Negative for dizziness, weakness, light-headedness, numbness and headaches. Hematological: Negative for adenopathy. Does not bruise/bleed easily. Psychiatric/Behavioral: Negative for agitation, behavioral problems and confusion. Vitals: Patient Vitals for the past 24 hrs: BP Temp Temp src Pulse Resp SpO2 Weight 11/23/23 0739 (!) 120/45 -- -- 69 15 97 % -- 11/23/23 0730 (!) 120/45 -- -- 55 13 -- -- 11/23/23 0530 (!) 137/100 -- -- 66 12 94 % -- 11/23/23 0400 133/59 -- -- 63 -- 94 % -- 11/23/23 0311 (!) 147/63 -- -- 63 20 97 % -- 11/23/23 0230 (!) 172/58 -- -- 71 16 98 % -- 11/23/23 0017 (!) 145/80 -- -- 72 14 95 % -- 11/22/23 2340 -- -- -- -- -- -- (!) 181 kg (400 lb) 11/22/23 2153 (!) 188/53 -- -- 68 15 97 % -- 11/22/23 1929 (!) 164/48 36.9 C (98.4 F) Oral 62 12 100 % -- Physical Exam: Physical Exam Vitals and nursing note reviewed. Constitutional: General: She is not in acute distress. Appearance: She is obese. She is ill-appearing. She is not toxic-appearing or diaphoretic. Comments: Pt lying in bed, NAD. Responds appropriately, conversant. RN at bedside. HENT: Head: Normocephalic and atraumatic. Right Ear: External ear normal. Left Ear: External ear normal. Nose: Nose normal. Mouth/Throat: Mouth: Mucous membranes are moist. Eyes: General: Right eye: No discharge. Left eye: No discharge. Extraocular Movements: Extraocular movements intact. Conjunctiva/sclera: Conjunctivae normal. Cardiovascular: Rate and Rhythm: Normal rate and regular rhythm. Pulses: Normal pulses. Heart sounds: Normal heart sounds. No murmur heard. Pulmonary: Effort: Pulmonary effort is normal. No respiratory distress. Breath sounds: Normal breath sounds. No wheezing or rhonchi. Comments: Unlabored effort on room air Abdominal: General: Abdomen is flat. Bowel sounds are normal. There is no distension. Palpations: Abdomen is soft. Tenderness: There is abdominal tenderness. There is left CVA tenderness. There is no right CVA tenderness. Comments: Suprapubic and L CVA tenderness to palpation Genitourinary: Comments: Minimal blood near jose insertion site. Jose bag with clear yellow urine Musculoskeletal: General: Deformity present. Normal range of motion. Cervical back: Normal range of motion. No rigidity. Right lower leg: Edema present. Left lower leg: Edema present. Comments: 2+ b/l LE edema. Chronic venous stasis wounds on anterior LE b/l. 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 Skin: General: Skin is warm and dry. Coloration: Skin is not jaundiced. Findings: Erythema present. No lesion. Comments: Intertrigo in abd and axillary folds. Fungal dermatitis appearing rash on R scapular area and near perineal area. Neurological: General: No focal deficit present. Mental Status: She is alert and oriented to person, place, and time. Mental status is at baseline. Sensory: No sensory deficit. Motor: Weakness present. Psychiatric: Mood and Affect: Mood normal. Behavior: Behavior normal. Thought Content: Thought content normal. Labs: Recent Labs 11/22/23 2134 11/23/23 0444 NA 137 137 K 4.5 3.9 CL 103 107 CO2 29 26 BUN 28* 24* CREATININE 0.91 0.79 GLUCOSE 350* 327* CALCIUM 8.7 8.1* PROT 6.9 5.8* BILITOT 0.8 0.4 ALKPHOS 82 78 AST 36 21 ALT 16 15 Recent Labs 11/22/23 2134 11/23/23 0051 11/23/23 0444 WBC 7.4 -- 7.4 HGB 11.7 13.3 10.3* HCT 37.0 -- 33.2* PLT 138* -- 146 LYMPHOPCT 17.3 -- -- MONOPCT 6.9 -- -- BASOPCT 0.3 -- -- NEUTROABS 5.4 -- -- Micro: No results for input(s): "COVID19" in the last 72 hours. 11/21 COVID/RSV/Flu negative 11/21 05/04 blood cx collected 11/21 urine cx collected 08/21 blood cx NG 08/01 05/04 blood cx NG 07/31 MRSA PCR negative 07/31 resp cx NG 07/31 pna pcr + coronavirus, rhinovirus 07/29 urine cx normal urogenital gaby 50-90K esbl e coli 07/29 04/03 blood cx ESBL e coli 01/08/2305/04 blood cx NG 01/08/23 urine cx multiple species present 08/04/22 urine cx NG 06/14 04/03 blood cx CONS 06/11 04/03 blood cx + ESBL e coli 06/10 urine bladder cx anaerobic GPB, skin gaby, ESBL e coli, p mirabilis 06/09 blood cx + ESBL e coli, p mirabilis , 04/03 +CONS Lines: Chronic jose PIV Radiography/Echo/Other: 11/22 CT a/p without contrast 11/21 CXR No acute findings 11/21 CT head 1. No acute intracranial findings. 2. Probable chronic ischemic and atrophic changes. Antimicrobials,Start/End Dates: Vancomycin 11/21 - present Meropenem 11/21 - present Impression: AMS Suprapubic and L CVA tenderness in setting of chronic jose for neurogenic bladder Extensive intertrigo and fungal dermatitis H/o obstructive proximal ureteral calculus s/p emergent cysto/L ureteral stent placement 06/10/22 Stent exchange 08/03/22 Stent removal 09/27/23 H/o ESBL e coli bacteremia 05/2022, 07/2023 H/o p mirabilis bacteremia 05/2022 DM Afib on eliquis Prolonged Qtc Tinea pedis and onychomycosis Plan: Pending further work up, maintain vancomycin and meropenem. Pharm to dose vanc Follow up urine and blood cx, optimize as able. CT a/p without contrast ordered given h/o obstructive stones and suprapubic/L CVA tenderness on exam, follow. Miconazole powder 2x daily to skin folds and upper back for fungal dermatitis/intertrigo. Please keep all folds as dry as possible. Miconazole cream to b/l feet BID x4 weeks for tinea pedis. Monitor infectious parameters ID to follow Total time 80 minutes on this day of encounter includes counseling, coordinating plan of care, record and documentation review before and after visit including documentation and time not explicitly included on EMR time stamp for accounting for open encounter. FLOR Denson, CHINYERE documented in this encounter [facility] 11-25-2023 Telephone encounter Note 11/25/23 VERY difficult , left ureteral stent. Multilength. ( Body habitus, inability to bend right leg) Schedule cystoscopy, left ureteroscopic laser lithotripsy, left ureteral stent change in 2-3 weeks at [facility]. 1.5 hours. Has to be in room 14. Urine culture one week prior ( Order in) [facility] 11-25-2023 Miscellaneous Notes 11/25/23 VERY difficult , left ureteral stent. Multilength. ( Body habitus, inability to bend right leg) Schedule cystoscopy, left ureteroscopic laser lithotripsy, left ureteral stent change in 2-3 weeks at [facility]. 1.5 hours. Has to be in room 14. Urine culture one week prior ( Order in) [facility] documented in this encounter [facility] 11-23-2023 Emergency department Note Patient was offered prn acetaminophen, did not want. Hayley Upton RN 11/23/23 1432 Pt back to rm 39. Melchor Landaverde RN 11/23/[address] scan. Melchor Landaverde RN 11/23/23 1330 Pt moved to bariatric hospital bed Guido Rodrigues RN 11/22/232153 Emergency Department Encounter Location: [facility] EMERGENCY DEPT Patient: Salazar Coyle : 1950 Date of evaluation: 11/22/2023 ED Provider: Giuliana Aparicio DO Time received sign-out: 2199 Salazar Coyle was checked out to me by Dr. Aguilera. Please see his/her initial documentation for details of the patient's initial ED presentation, physical exam and completed studies. In brief, Salazar Coyle is a 73 y.o. adult that presented to the emergency department from [facility] with reports of altered mental status with AxO x 2 from baseline of AxO x 2 for along with reports of elevated glucose. Upon arrival to the ED her glucose remained in the 300s however she was AxO x 4. Family is at the bedside stating patient is also AxO x 4. On exam she does have a cellulitic left flank extending to the groin with what appears to be a yeast infection of the groin. She is undergoing septic workup however she will require admission for antibiosis to treat the cellulitis however pending UTI she will require meropenem given her history of ESBL UTI infections. I have reviewed and interpreted all of the currently available lab results and diagnostics from this visit: Results for orders placed or performed during the hospital encounter of 11/22/23 CBC auto differential Result Value Ref Range Auto WBC 7.4 3.6 - 10.7 10*3/uL RBC 3.75 (L) 3.80 - 5.20 10*6/uL Hemoglobin 11.7 11.7 - 16.0 g/dL Hematocrit 37.0 35.0 - 47.0 % MCV 98.7 77.0 - 99.0 fL MCH 31.2 26.0 - 34.0 pg MCHC 31.6 30.5 - 36.0 % RDW 15.8 (H) 11.5 - 15.0 % Platelets 138 (L) 140 - 440 10*3/uL MPV 11.9 9.0 - 12.7 fL nRBC 0.0 0.0 - 2.0 /100 WBCs Neutrophils Relative 72.8 38.0 - 82.0 % Lymphocytes Relative 17.3 15.0 - 45.0 % Monocytes Relative 6.9 5.0 - 13.0 % Eosinophils Relative 2.3 0.0 - 6.0 % Basophils Relative 0.3 0.0 - 2.0 % Immature Grans % 0.4 0.0 - 2.0 % Neutrophils Absolute 5.4 1.8 - 7.5 10*3/uL Lymphocytes Absolute 1.3 1.0 - 4.3 10*3/uL Monocytes Absolute 0.5 0.0 - 0.9 10*3/uL Eosinophils Absolute 0.2 0.0 - 0.5 10*3/uL Basophils Absolute 0.0 0.0 - 0.2 10*3/uL Immature Grans Absolute 0.0 <0.1 10*3/uL POCT glucose meter Result Value Ref Range Glucose 390 (H) 70 - 100 mg/dL XR chest 1 view Final Result 1. No acute findings. Report Dictated on Electronically Signed By: Sy Akins MD Electronically Signed Date/Time: 11/22/2023 9:[address] head wo IV contrast Final Result 1. No acute intracranial findings. 2. Probable chronic ischemic and atrophic changes. Report Dictated on Electronically Signed By: Sy Akins MD Electronically Signed Date/Time: 11/22/2023 8:55 PM EDT Vascular US upper extremity venous duplex right (Results Pending) Final ED Course and MDM: In brief, Salazar Coyle is a 73 y.o. whose care was signed out to me by the outgoing provider. In brief, 73 y.o. adult that presented to the emergency department from SNF with reports of altered mental status with AxO x 2 from baseline of AxO x 2 for along with reports of elevated glucose. Upon arrival to the ED her glucose remained in the 300s however she was AxO x 4. Family is at the bedside stating patient is also AxO x 4. On exam she does have a cellulitic left flank extending to the groin with what appears to be a yeast infection of the groin. She is undergoing septic workup however she will require admission for antibiosis to treat the cellulitis however pending UTI she will require meropenem given her history of ESBL UTI infections. Patient started on meropenem for concerns of UTI in addition to her cellulitis. SEP-1 CORE MEASURE DATA SIRS Criteria Sepsis Criteria Severe Sepsis Criteria Septic Shock Criteria Must meet 2: [] Temperature > 100.4 F (38 C) or < 96.8 F (36 C) [] HR > 90 [] RR > 20 [] WBC > 12 or < 4 or 10% bands Must be confirmed or suspected to move forward with diagnosis of sepsis. Must select at least one: [x] Bacterial Infection Confirmed or Suspected. [] Viral Infection Confirmed or Suspected. [] No infection present. Patient does not meet criteria for Sepsis. Must meet 1: [x] Lactate > 2 or [] Signs of Organ Dysfunction: - SBP < 90 or MAP < 65 - Altered mental status - Creatinine > 2 or increased from baseline - Urine Output < 0.5 ml/kg/hr - Bilirubin > 2 - INR > 1.5 - Platelets < 100,000 - Acute Respiratory Failure as evidenced by new need for NIPPV or mechanical ventilation [] No criteria met for Severe Sepsis. Must meet 1: [] Lactate = or > 4 or [] SBP < 90 or MAP < 65 for at least two readings in the first hour after fluid bolus administration [] No criteria met for Septic Shock. No data found. Recent Labs 11/22/232133 WBC 7.4 LACTATE 2.6* CREATININE 0.91 BILITOT 0.8 PLT 138* Sepsis Identified at 2134 hours. Fluid Resuscitation Rational: Due to concerns for fluid overload pt was not given additional IVF. Infection Source: Urinary System Medications oxyCODONE (Roxicodone) immediate release tablet 5 mg (has no administration in time range) Final Impression 1. Altered mental status, unspecified altered mental status type 2. Morbidly obese (HCC) 3. Patient immobile for more than 24 hours 4. Cellulitis, unspecified cellulitis site 5. Fungal infection 6. Swelling of right upper extremity DISPOSITION (Please note that portions of this note may have been completed with a voice recognition program. Efforts were made to edit the dictations but occasionally words are mis-transcribed.) Giuliana Aparicio DO [employer] Giuliana Aparicio DO Resident 11/23/23 0022 EMERGENCY DEPARTMENT ENCOUNTER Pt Name: Salazar Coyle Birthdate 1950 Date of evaluation: 11/22/2023 ED Provider: Torres Aguilera MD CHIEF COMPLAINT Chief Complaint Patient presents with Altered Mental Status Pt arrives via EMS from [facility] for AMS. Per EMS pt began acting confused and BGT was elevated starting at 5pm. Pt A&Ox4 at baseline but was A&Ox2 for facility. Pt is A&Ox3 upon arrival. Pt c/o pain to left arm and left leg. HISTORY OF PRESENT ILLNESS (Location/Symptom, Timing/Onset, Context/Setting, Quality, Duration, Modifying Factors, Severity) Note limiting factors. I wore appropriate PPE for the entirety of this encounter. HPI Salazar Coyle is a 73 y.o. who presents to the emergency department with a chief complaint altered mental status. [facility] Patient has a history of A-fib, ESBL UTIs, morbid obesity. Nursing facility reports that the patient was sluggish and altered. Baseline is ANO x 4. They report the patient was ANO x 2. On evaluation patient is at baseline mental status according to her daughter and granddaughter at bedside. Patient does report some pain of her left leg, bilateral upper extremities. Denies any chest pain or shortness of breath. Denies any cough, fever, chills. Denies any abdominal pain or nausea or vomiting. Patient states she does have a chronic indwelling Jose catheter. Nursing Notes were reviewed. Limitations to history: None Outside historians: None REVIEW OF SYSTEMS Review of Systems Pertinent positives and negatives as per HPI. PAST MEDICAL HISTORY Past Medical History: Diagnosis Date A-fib (CMS/HCC) (HCC) Anemia Diabetes (HCC) Lymphedema Obesity SURGICAL HISTORY Past Surgical History: Procedure Laterality Date URETEROSCOPY Left 09/27/2023 Cytoscopy, left ureteral stent removal , left flexible ureteroscopic laser lithotripsy. [facility] CURRENT MEDICATIONS Previous Medications ACETAMINOPHEN (TYLENOL) 325 MG TABLET Take 325 mg by mouth 3 times daily. APIXABAN (ELIQUIS) 5 MG TABLET Take 5 mg by mouth 2 times daily. ASCORBIC ACID (VITAMIN C) 250 MG TABLET Take 250 mg by mouth daily. ATORVASTATIN (LIPITOR) 20 MG TABLET Take 20 mg by mouth daily. BACLOFEN (LIORESAL) 5 MG TABLET Take 1 tablet by mouth 3 times daily. BUMETANIDE (BUMEX) 1 MG TABLET Take 1 tablet (1 mg) by mouth in the morning and 1 tablet (1 mg) in the evening. CALCIUM CARBONATE-VITAMIN D (OYSTER SHELL CALCIUM/D) 500-5 MG-MCG TABLET Take 1 tablet by mouth daily. DICLOFENAC SODIUM (VOLTAREN) 1 % GEL Apply 4 g topically 2 times daily. DONEPEZIL (ARICEPT) 10 MG TABLET Take 10 mg by mouth Nightly. GABAPENTIN (NEURONTIN) 100 MG CAPSULE Take 3 capsules (300 mg) by mouth 3 times daily. INSULIN GLARGINE (LANTUS) 100 UNIT/ML INJECTION Inject 30 Units under the skin Nightly. INSULIN LISPRO (HUMALOG) 100 UNIT/ML SOLUTION INJECTION Inject 5 Units under the skin in the morning and 5 Units at noon and 5 Units in the evening. Inject with meals. NYSTATIN (MYCOSTATIN) 500237 UNIT/GM POWDER OXYCODONE (OXY-IR) 5 MG IMMEDIATE RELEASE CAPSULE Take 5 mg by mouth. SENNA-DOCUSATE (HELENA-COLACE) 8.6-50 MG TABLET Take 100 tablets by mouth Every 24 hours. SERTRALINE (ZOLOFT) 50 MG TABLET Take 50 mg by mouth daily. ALLERGIES Ertapenem FAMILY HISTORY No family history on file. SOCIAL HISTORY Social History Socioeconomic History Marital status: Tobacco Use Smoking status: Never Smokeless tobacco: Never Vaping Use Vaping status: Never Used Substance and Sexual Activity Alcohol use: Never Drug use: Never Sexual activity: Not Currently Social Determinants of Health Intimate Partner Violence: Not At Risk (01/08/2023) Humiliation, Afraid, Rape, and Kick questionnaire Fear of Current or Ex-Partner: No Emotionally Abused: No Physically Abused: No Sexually Abused: No SCREENINGS PHYSICAL EXAM ED Triage Vitals [11/22/231928] Temp Heart Rate Resp BP 36.9 C (98.4 F) 62 12 (!) 164/48 SpO2 Temp Source Heart Rate Source Patient Position 100 % Oral Monitor -- BP Location FiO2 (%) -- -- Physical Exam Constitutional: Appearance: She is obese. She is ill-appearing. HENT: Head: Normocephalic and atraumatic. Mouth/Throat: Mouth: Mucous membranes are moist. Pharynx: Oropharynx is clear. Cardiovascular: Rate and Rhythm: Normal rate and regular rhythm. Heart sounds: No murmur heard. Pulmonary: Effort: Pulmonary effort is normal. No respiratory distress. Breath sounds: Normal breath sounds. No wheezing or rales. Abdominal: General: Abdomen is flat. There is no distension. Palpations: Abdomen is soft. Tenderness: There is no abdominal tenderness. There is no guarding. Genitourinary: Comments: Erythema of the groin including labia, medial proximal lower extremities. Consistent with candidiasis Musculoskeletal: General: Swelling present. Right lower leg: Edema present. Left lower leg: Edema present. Comments: Erythema, pitting edema of both lower extremities up to the calf. Consistent with chronic venous stasis. Swelling of bilateral upper extremities, more pronounced on the right. Skin: Findings: Erythema present. Comments: Erythema, tenderness of the skin overlying the left flank. It is warm to the touch. No purulence, no fluctuance. Neurological: Mental Status: She is oriented to person, place, and time. Cranial Nerves: No cranial nerve deficit. Sensory: No sensory deficit. DIAGNOSTIC RESULTS RADIOLOGY (Per Emergency Physician): Interpretation per the Radiologist below, if available at the time of this note: XR chest 1 view Final Result 1. No acute findings. Report Dictated on Electronically Signed By: Sy Akins MD Electronically Signed Date/Time: 11/22/2023 9:[address] head wo IV contrast Final Result 1. No acute intracranial findings. 2. Probable chronic ischemic and atrophic changes. Report Dictated on Electronically Signed By: Sy Akins MD Electronically Signed Date/Time: 11/22/2023 8:55 PM EDT Vascular US upper extremity venous duplex right (Results Pending) LABS: Labs Reviewed CBC WITH AUTO DIFFERENTIAL - Abnormal Result Value Auto WBC 7.4 RBC 3.75 (*) Hemoglobin 11.7 Hematocrit 37.0 MCV 98.7 MCH 31.2 MCHC 31.6 RDW 15.8 (*) Platelets 138 (*) MPV 11.9 nRBC 0.0 Neutrophils Relative 72.8 Lymphocytes Relative 17.3 Monocytes Relative 6.9 Eosinophils Relative 2.3 Basophils Relative 0.3 Immature Grans % 0.4 Neutrophils Absolute 5.4 Lymphocytes Absolute 1.3 Monocytes Absolute 0.5 Eosinophils Absolute 0.2 Basophils Absolute 0.0 Immature Grans Absolute 0.0 POCT GLUCOSE METER UNSOLICITED RESULTS - Abnormal Glucose 390 (*) Narrative: Performed by: [facility], [address] [place] [address] CLIA ID: [id number] SARS-COV-2, FLU A/B, AND RSV COMBO BLOOD CULTURE BLOOD CULTURE COMPREHENSIVE METABOLIC PANEL COMPLETE URINALYSIS WITH REFLEX TO CULTURE Narrative: The following orders were created for panel order Complete Urinalysis with reflex to Culture. Procedure Abnormality Status --------- ------ Complete Urinalysis[[id number]] Please view results for these tests on the individual orders. TROPONIN, WITH SERIAL REFLEX THYROID STIMULATING HORMONE FREE T4 BETA HYDROXYBUTYRATE BLOOD GAS, VENOUS COMPLETE URINALYSIS LACTIC ACID WITH REFLEX All other labs were within normal range or not returned as of this dictation. EMERGENCY DEPARTMENT COURSE and DIFFERENTIAL DIAGNOSIS/MDM: Vitals: Vitals: 11/22/23 1929 11/22/23 2153 BP: (!) 164/48 (!) 188/53 Pulse: 62 66 Resp: 12 15 Temp: 36.9 C (98.4 F) TempSrc: Oral SpO2: 100% 97% The patient presented with a chief complaint of altered mental status. On examination patient is now alert and oriented x 3 at baseline. She has evidence of possible cellulitis over the left flank with erythema, warmth. Bilateral lower extremities have pitting edema, erythema, seems consistent with chronic venous stasis. Also has evidence of candidal infections of the skin of the groin.. The differential diagnosis associated with this patient's presentation includes cellulitis, right upper extremity DVT, UTI.. Our workup consisted of ordering/reviewing CMP, glucose is 350. No anion gap normal bicarb. CBC shows no leukocytosis, lactic acid 2.6. Normal beta hydroxybutyrate. Patient signed out to Dr. Aparicio at this time CT head was unremarkable. Patient will require broad-spectrum antibiotics, plan will be to obtain urinalysis. If there is signs of infection will start meropenem due to history of ESBL. If no UTI will start vancomycin and Zosyn. Anticipate admission for further management... Diagnoses as of 11/23/23 0016 Altered mental status, unspecified altered mental status type Morbidly obese (HCC) Patient immobile for more than 24 hours Cellulitis, unspecified cellulitis site Fungal infection Swelling of right upper extremity Urinary tract infection with hematuria, site unspecified External records reviewed: Diagnostics interpreted by me: EKG; see my interpretation elsewhere in the chart Discussions with other clinicians: Chronic conditions impacting care: Diabetes Social determinants of health affecting care: ED Medications managed: Medications oxyCODONE (Roxicodone) immediate release tablet 5 mg (has no administration in time range) Prescription drugs considered: PROCEDURES: Unless otherwise noted below, none Procedures FINAL IMPRESSION 1. Altered mental status, unspecified altered mental status type 2. Morbidly obese (HCC) 3. Patient immobile for more than 24 hours 4. Cellulitis, unspecified cellulitis site 5. Fungal infection 6. Swelling of right upper extremity DISPOSITION Admit 11/22/2023 10:07:52 PM PATIENT REFERRED TO: No follow-up provider specified. DISCHARGE MEDICATIONS: New Prescriptions No medications on file (Comment: Please note this report has been produced using speech recognition software and may contain errors related to that system including errors in grammar, punctuation, and spelling, as well as words and phrases that may be inappropriate. If there are any questions or concerns please feel free to contact the dictating provider for clarification.) Torres Aguilera MD (electronically signed) Emergency Medicine Provider Torres Aguilera MD Resident 11/22/23 4540 Emergency Department Encounter EMERGENCY DEPARTMENT Patient: Salazar Coyle : 1950 Date of Evaluation: 11/22/2023 ED Supervising Physician: Juan Cervantes MD I independently examined and evaluated Salazar Coyle. This will serve as my Supervisory note and shared attestation. I did perform a substantive portion of the visit including all aspects of the Medical Decision Making. I wore appropriate PPE for the entirety of this encounter. In brief, Salazar Coyle is a 73 y.o. that presents to the emergency department with change in mental status, hyperglycemia, disorientation, dark urine, cellulitis and fungal infections Patient is morbidly obese, bedbound, history of diabetes and septic shock and ESBL urinary tract infections and obstructive sleep apnea and cognitive decline and cellulitis and fungal infections. She endorses chronic body aches for which she takes chronic narcotics recent change in this dose. Patient was sent from her SNF because she had a period of altered mental status and decreased responsiveness. She was oriented to person and place but not time. She appears to be gradually recovering from this now and is oriented to person and place and time and able to give us details about her medical history. retirement reported that her glucose was in the 300s so they gave her her normal dose of insulin and it increased up to the 400s. She also has dark urine however her urine Jose catheter bag is somewhat tented, so they are not sure if this is dark urine secondary to dehydration or infection or if it is dark urine because of the color of the bag itself. Patient denies any chest pain or shortness of breath or abdominal pain. No fevers no chills. No nausea no vomiting no diarrhea. She does not have any pain from the Jose catheter itself. She has extensive fungal infections in the groin as well as beneath the breast. The fungal infection in the groin is mixed with feces as well. Patient has what looks like an early cellulitis tracking down the left lateral flank and into the left lateral thigh. She also has a swollen right arm with fungal infection, not cellulitis, in the anterior antecubital fossa. She is immobile and is on Eliquis, it is unknown if she has any blood clots in the right arm at this time. The left arm is not swollen. Bilateral lower extremities are equally swollen. ED Triage Vitals [11/22/231928] Temp Heart Rate Resp BP 36.9 C (98.4 F) 62 12 (!) 164/48 SpO2 Temp Source Heart Rate Source Patient Position 100 % Oral Monitor -- BP Location FiO2 (%) -- -- Focused exam: General: Morbidly obese chronically ill debilitated elderly female lying supine in bed HENT: Head NCAT, EOMI with no erythema, swelling or discharge. Oropharyngeal mucus membranes somewhat dry, pink, no exudate Neck: Full ROM, supple, no rigidity Cardio: RRR, quiet s1 s2 no m/r/g, extremities warm, dry, well perfused, massive chronic edema in all 4 extremities, 2+ bilateral radial pulses, 2+ bilateral DP pulses. Lungs: Diminished lung sounds in all johnson, no wheezing no rales no rhonchi. SaO2 97% on room air Abdomen: Morbidly obese, soft, NT, ND, non-rigid, BS x 4 normal : There is an indwelling Jose catheter present. There is a combination of fungal infection and feces on the patient's bilateral thighs tracking toward her vulva MSK: Right upper extremity is somewhat swollen compared to left upper extremity. Bilateral lower extremities are symmetrically swollen Skin: Fungal infections on the right upper extremity antecubital fossa, the groin, and beneath both breasts. Chronic venous stasis changes bilateral anterior distal tib-fib's. Superficial cellulitis developing on the left lateral flank and the left lateral thigh Neuro: Alert, oriented, mentating normally. Patient is alert and oriented to person place time and event. She appears to have recovered cognitively completely at this time. The disorientation at the [facility] was initially noting is gone Diffusely diminished 3/5 strength and intact sensation all 4 extremities Cranial nerves II through XII normal No slurred speech, not dysarthric No aphasia No facial droop Ability to test finger-nose and [id number] coordination is limited by debility Ability to test DTRs limited by immobility, cannot get patient to sit on the edge of the bed to test patellar reflexes Gait not testable, patient immobile Despite the above generalized weakness in all 4 extremities, patient does not have any lateralizing neurological findings and is cognitively completely normal also technically her NIHSS is still 0. Brief ED course/MDM: MDM elements: The patient presented with chief complaint of transient altered mental status, hyperglycemia, dark urine, extensive fungal infection and cellulitis, history of sepsis. The differential diagnosis associated with this patient's presentation includes patient does not meet SIRS criteria right now, so she does not qualify for sepsis. She appears to have a cellulitis in the left lateral abdomen tracking down the left thigh, and fungal infections in the groin and under the breasts and chronic venous stasis in bilateral lower extremities. The indwelling Jose catheter is also a potential source of infection as she has a history of ESBL UTIs. Given the transiently altered mental status we will also get a CT of her head to make sure there is no stroke, but I find this less likely as the patient technically has an NIHSS of 0 with global physical debilitation, not a lateralizing focal neurological deficit.. Our workup consisted of ordering/reviewing: Sepsis workup, CT head, antifungals and IV antibiotics, EKG, hospital admission skin care. I have also ordered a right upper extremity ultrasound as her right arm appears to be more swollen than her left arm and she is going to be at increased risk for DVTs (although this risk is mitigated somewhat by the fact that she takes Eliquis). To aid in management, I performed an independent interpretation of Xray(s) see below CT scan(s) see below EKG; see my interpretation elsewhere in the chart Blood work, see below. I also reviewed external records from past medical records in [facility] to obtain collateral history. The patient will be Admitted. Patient is in agreement with this plan. Patient's care was impacted by chronic debility and immobility. SCREENINGS NIH Stroke Scale 1A. Level of Consciousness: Alert, Keenly Responsive 1B. Ask Month and Age: Both Questions Right 1C. Blink Eyes & Squeeze Hands: Performs Both Tasks 2. Best Gaze: Normal 3. Visual: No Visual Loss 4. Facial Palsy: Normal Symmetrical Movements 5A. Motor - Left Arm: No Drift 5B. Motor - Right Arm: No Drift 6A. Motor - Left Leg: No Drift 6B. Motor - Right Leg: No Drift 7. Limb Ataxia: Absent 8. Sensory Loss: Normal 9. Best Language: No Aphasia 10. Dysarthria: Normal 11. Extinction and Inattention: No Abnormality NIH Stroke Scale: 0 EKG: I read and interpreted this EKG. My interpretation can be found in the [employer] EKG system. EKG shows NSR, normal axis, normal NJ interval, prolonged QRS and QTC, no STEMI, no SVT, no LVH. Incomplete LBBB. Previous EKG showed sinus tachycardia and more pronounced LVH Labs Reviewed CBC WITH AUTO DIFFERENTIAL - Abnormal Result Value Auto WBC 7.4 RBC 3.75 (*) Hemoglobin 11.7 Hematocrit 37.0 MCV 98.7 MCH 31.2 MCHC 31.6 RDW 15.8 (*) Platelets 138 (*) MPV 11.9 nRBC 0.0 Neutrophils Relative 72.8 Lymphocytes Relative 17.3 Monocytes Relative 6.9 Eosinophils Relative 2.3 Basophils Relative 0.3 Immature Grans % 0.4 Neutrophils Absolute 5.4 Lymphocytes Absolute 1.3 Monocytes Absolute 0.5 Eosinophils Absolute 0.2 Basophils Absolute 0.0 Immature Grans Absolute 0.0 COMPREHENSIVE METABOLIC PANEL - Abnormal SODIUM 137 POTASSIUM 4.5 CHLORIDE 103 CARBON DIOXIDE 29 ANION GAP 4 UREA NITROGEN 28 (*) CREATININE 0.91 GLUCOSE 350 (*) CALCIUM 8.7 AST (SGOT) 36 ALT 16 ALKALINE PHOSPHATASE 82 ALBUMIN 3.4 (*) BILIRUBIN, TOTAL 0.8 TOTAL PROTEIN 6.9 eGFR 65.9 Narrative: Slightly Hemolyzed. Interpret ALBUMIN, ALKALINE PHOSPHATASE, AST, POTASSIUM, and TOTAL PROTEIN with caution. COMPLETE URINALYSIS - Abnormal Color, Urine Light Yellow Clarity, Urine Clear pH, Urine 7.0 Leukocytes, Urine 250 (*) Nitrite, Urine Positive (*) Protein, Urine 70 (*) Glucose, Urine >1,000 (*) Bilirubin, Urine Negative Ketones, Urine Negative Urobilinogen, Urine Normal Blood, Urine 0.2 (*) RBC, Urine 26-50 (*) WBC, Urine 26-50 (*) Squamous Epithelial, Urine 0-2 Bacteria, Urine Moderate (*) Mucus, Urine Few Hyaline Casts, Urine Negative SPECIFIC GRAVITY OF URINE (NUMERIC) 1.019 LACTIC ACID WITH REFLEX - Abnormal LACTIC ACID 2.6 (*) POCT GLUCOSE METER UNSOLICITED RESULTS - Abnormal Glucose 390 (*) Narrative: Performed by: [facility], [address] [place], [place] [id number] CLIA ID: [id number] TROPONIN, WITH SERIAL REFLEX - Normal TROPONIN I <0.012 Narrative: Slightly hemolyzed, interpret troponin with caution Patients with high levels of Biotin oral intake (ie >5 mg/day) may have falsely decreased Troponin levels. THYROID STIMULATING HORMONE - Normal THYROID STIMULATING HORMONE 1.649 FREE T4 - Normal FREE T4 2.06 BETA HYDROXYBUTYRATE - Normal BETA HYDROXYBUTYRATE 2.08 SARS-COV-2, FLU A/B, AND RSV COMBO BLOOD CULTURE BLOOD CULTURE URINE CULTURE COMPLETE URINALYSIS WITH REFLEX TO CULTURE Narrative: The following orders were created for panel order Complete Urinalysis with reflex to Culture. Procedure Abnormality Status --------- ------ Complete Urinalysis[[id number]] Abnormal Final result Please view results for these tests on the individual orders. BLOOD GAS, VENOUS LACTIC ACID WITH REFLEX TROPONIN I TROPONIN I XR chest 1 view Final Result 1. No acute findings. Report Dictated on Electronically Signed By: Sy Akins MD Electronically Signed Date/Time: 11/22/2023 9:[address] head wo IV contrast Final Result 1. No acute intracranial findings. 2. Probable chronic ischemic and atrophic changes. Report Dictated on Electronically Signed By: Sy Akins MD Electronically Signed Date/Time: 11/22/2023 8:55 PM EDT Vascular US upper extremity venous duplex right (Results Pending) The technologist who performed the ultrasound to rule out DVT is not available at this time. This ultrasound will likely not happen until tomorrow, please see inpatient note for results of the right upper extremity ultrasound VBG shows a pH of 7.333, pCO2 slightly elevated 63.3 Metabolic panel shows no metabolic acidosis, good kidney function with creatinine 0.91, glucose elevated at 350. Given that the patient has no metabolic acidosis and a normal anion gap, this is not consistent with DKA Aminotransferases unremarkable Alk phos unremarkable Troponin negative Lactic acid elevated at 2.6, however the patient does not meet sepsis criteria. She has 0 SIRS criteria. Normal white blood cell count Not anemic Thrombocytopenic Beta-hydroxybutyrate 2.08, also not consistent with DKA TSH and free T4 both normal Urinalysis consistent with UTI and glycosuria. This is a fresh urine sample. Urine culture also ordered given history of ESBL UTIs Patient was started on meropenem because this should cover both cellulitis and urinary tract infection Blood cultures running CT head shows no acute intracranial findings. No mass no mass effect no hemorrhage no midline shift no hydrocephalus no acute cortical infarction. There is a patchy low-density in the periventricular and subcortical white matter which is nonspecific radiology feels this may relate to chronic small vessel ischemic change. Mild diffuse volume loss. No skull fracture. There is an ovoid hypodensity and possible cystic focus again partially visualized in the right maxillary and antral posterior inferior wall but radiology does not feel that this is significantly changed compared to previous imaging. Interpreted by radiology and by me. Chest x-ray shows no acute findings. No pneumonia no pulmonary vascular congestion. Interpreted by me. All labs and imaging reviewed. Patient does not meet sepsis criteria. Patient exhibits no signs of stroke. Patient was started on antibiotics that will cover both cellulitis and urinary tract infection and antifungals to cover the fungal infections. Glucose is elevated and this will need to be optimized while she is an inpatient but she does not meet criteria for DKA. Patient admitted to the hospital for further care Disposition: Admitted 1. Altered mental status, unspecified altered mental status type 2. Morbidly obese (HCC) 3. Patient immobile for more than 24 hours 4. Cellulitis, unspecified cellulitis site 5. Fungal infection 6. Swelling of right upper extremity 7. Urinary tract infection with hematuria, site unspecified All diagnostic, treatment, and disposition decisions were made by myself in conjunction with the Resident. I also supervised arias portions of any procedures performed by the Resident. For all further details of the patient's emergency department visit, please see their documentation. (Comment: Please note this report has been produced using speech recognition software and may contain errors related to that system including errors in grammar, punctuation, and spelling, as well as words and phrases that may be inappropriate. If there are any questions or concerns please feel free to contact the dictating provider for clarification.) Juan Cervantes MD [employer] Juan Cervantes MD 11/23/23 0129 documented in this encounter [facility] 11-23-2023 History and physical note Attending History and Physical Admit Date: 11/22/2023 PCP: Paige Rivera DO CHIEF COMPLAINT: Altered Mental Status Reason for Admission: UTI w/ Sepsis, concern for Lower Extremity and Left Flank Cellulitis History Obtained From: patient, EMR HISTORY OF PRESENT ILLNESS: Salazar is a 73 y.o. female with past medical history below who presents with chief complaint listed above. Pt Hx significant for A-fib on Eliquis, DMII, morbid obesity. Has been admitted 07/30/2023 for septic shock, found at that time to have ESBL UTI w/ bacteremia. Per documentation Pt reportedly less responsive, more confused at nursing facility. Initial ED workup noted normal renal function, no electrolyte abnormalities. Glucose elevated at 350. Troponin <0.012. WBCS WNL at 7.4. Vital signs note Hypertension - SBP 160-180s. HR in 60s-70s. Pt is afebrile. Will admit for further evaluation and management. - Initial; Lactic acid elevated at 2.6 - fluids were limited d/t Pt HX of fluid overload. On review of AM noted lactic acid has actually increased to 2.9 - will start fluids now w/ close monitoring. Home Bumex dose held. - CT Head w/o Contrast 1. No acute intracranial findings. 2. Probable chronic ischemic and atrophic changes. 2CXR Patient rotated to the left. Cardiac silhouette prominent, which may be due in part to technique, but stable. Lungs are grossly clear. No significant vascular congestion. No apparent pneumothorax. Bony thorax grossly unremarkable. IMPRESSION: 1. No acute findings. Past Medical History: Past Medical History: Diagnosis Date A-fib (CMS/HCC) (HCC) Anemia Diabetes (HCC) Lymphedema Obesity Past Surgical History: Past Surgical History: Procedure Laterality Date URETEROSCOPY Left 09/27/2023 Cytoscopy, left ureteral stent removal , left flexible ureteroscopic laser lithotripsy. Spear Social History: Social History Socioeconomic History Marital status: Spouse name: Not on file Number of children: Not on file Years of education: Not on file Highest education level: Not on file Occupational History Not on file Tobacco Use Smoking status: Never Smokeless tobacco: Never Vaping Use Vaping status: Never Used Substance and Sexual Activity Alcohol use: Never Drug use: Never Sexual activity: Not Currently Other Topics Concern Not on file Social History Narrative Not on file Social Determinants of Health Financial Resource Strain: Not on file Food Insecurity: Not on file Transportation Needs: Not on file Physical Activity: Not on file Stress: Not on file Social Connections: Not on file Intimate Partner Violence: Not At Risk (01/08/2023) Humiliation, Afraid, Rape, and Kick questionnaire Fear of Current or Ex-Partner: No Emotionally Abused: No Physically Abused: No Sexually Abused: No Housing Stability: Not on file Family History: No family history on file. Medications Prior to Admission: No current facility-administered medications on file prior to encounter. Current Outpatient Medications on File Prior to Encounter Medication Sig Dispense Refill acetaminophen (Tylenol) 325 MG tablet Take 325 mg by mouth 3 times daily. apixaban (Eliquis) 5 MG tablet Take 5 mg by mouth 2 times daily. ascorbic acid (Vitamin C) 250 MG tablet Take 250 mg by mouth daily. atorvastatin (Lipitor) 20 MG tablet Take 20 mg by mouth daily. baclofen (Lioresal) 5 MG tablet Take 1 tablet by mouth 3 times daily. bumetanide (Bumex) 1 MG tablet Take 1 tablet (1 mg) by mouth in the morning and 1 tablet (1 mg) in the evening. 60 tablet 2 Calcium Carbonate-Vitamin D (Oyster Shell Calcium/D) 500-5 MG-MCG tablet Take 1 tablet by mouth daily. Diclofenac Sodium (Voltaren) 1 % gel Apply 4 g topically 2 times daily. 50 g 1 donepezil (Aricept) 10 MG tablet Take 10 mg by mouth Nightly. gabapentin (Neurontin) 100 MG capsule Take 3 capsules (300 mg) by mouth 3 times daily. 180 capsule 2 insulin glargine (Lantus) 100 UNIT/ML injection Inject 30 Units under the skin Nightly. 9 mL 0 Insulin Lispro (Humalog) 100 UNIT/ML solution injection Inject 5 Units under the skin in the morning and 5 Units at noon and 5 Units in the evening. Inject with meals. 10 mL 2 nystatin (Mycostatin) [id number] UNIT/GM powder oxyCODONE (Oxy-IR) 5 MG immediate release capsule Take 5 mg by mouth. senna-docusate (Helena-Colace) 8.6-50 MG tablet Take 100 tablets by mouth Every 24 hours. sertraline (Zoloft) 50 MG tablet Take 50 mg by mouth daily. Allergies: Allergies Allergen Reactions Ertapenem Patient tolerated July 2022 Tolerated meropenem August 2023 REVIEW OF SYSTEMS: As documented in HPI Vitals: BP (!) 145/80 Pulse 72 Temp 36.9 C (98.4 F) (Oral) Resp 14 Wt (!) 400 lb (181 kg) SpO2 95% BMI 66.56 kg/m BMI Classification: Morbidly Obese (>40.0) Pulse Ox: SpO2 Av.3 % Min: 95 % Max: 100 % Supplemental O2: PHYSICAL EXAM: Physical Exam Constitutional: Comments: Briefly rouses to tactile stimulation, then returns to sleep. Allows for examination DATA: CBC: Recent Labs 11/22/23213311/23/23 0051 WBC 7.4 -- RBC 3.75* -- HGB 11.7 13.3 HCT 37.0 -- MCV 98.7 -- RDW 15.8* -- PLT 138* -- BMP: Recent Labs 11/22/232133 NA 137 K 4.5 CL 103 CO2 29 BUN 28* CREATININE 0.91 GLUCOSE 350* CALCIUM 8.7 ANIONGAP 4 LIVER PROFILE: Recent Labs 11/22/232133 AST 36 ALT 16 BILITOT 0.8 ALKPHOS 82 PROT 6.9 PT/INR: No results for input(s): "PROTIME", "INR" in the last 72 hours. CARDIAC ENZYMES: Recent Labs 11/22/232133 TROPONINI <0.012 Procalcitonin: No results found for: PROCAL Urine Culture: Results for orders placed or performed during the hospital encounter of 07/30/23 Urine culture Specimen: Urine, Clean Catch Result Value Ref Range Urine Culture Normal urogenital gaby present Urine Culture 50,000-90,000 CFU/mL Escherichia coli (A) Susceptibility Escherichia coli - BROTH MICRODILUTION Amoxicillin / Clavulanate Resistant Ampicillin Resistant Ampicillin / Sulbactam Resistant Aztreonam >=64 Resistant ug/ml Cefazolin Resistant Cefepime Resistant Ceftriaxone >=64 Resistant ug/ml Ciprofloxacin >=4 Resistant ug/ml Gentamicin <=1 Susceptible ug/ml Meropenem 1 Susceptible ug/ml Nitrofurantoin 32 Susceptible ug/ml Piperacillin / Tazobactam Resistant Trimethoprim / Sulfamethoxazole <=20 Susceptible ug/ml COVID-19 PCR: No results for input(s): "COVID19" in the last 72 hours. I reviewed: [x] laboratory results [x] radiographic results At the time of today's encounter. Pt was advised of the results. Data: (LOW: 2x CAT1 or independent historian MOD: 3x CAT1 or 1x CAT3 EXTENSIVE: 3x CAT1 and 1x CAT3) Assessment Discussed management with the ED provider and agree with hospitalization. Acute, acute on chronic, unstable/uncontrolled chronic problems/diagnoses: Sepsis, UTI Vs Cellulitis - Pt on telemetry, continue to monitor - Will continue Merrem, add Vancomycin - Infectious Disease specialty consulted - IVF hydration - continue to trend lactic acid levels - AM labs Stable chronic problems affecting care, new non-acute diagnoses: Diabetes Mellitus - Continue home diabetic regimen - Check blood glucose qACHS w/ insulin sliding scale coverage 2. Reported Hx of Dementia - Aricept 10mg 3. Atrial Fibrillation - Eliquis 5mg - Telemetry Plan As a result of the above findings & factors, the following mgmt was pursued: - am labs, replace lytes prn - PT/OT/CM/SW - delirium precautions: schedule melatonin at bedtime and limit nighttime disturbances - DVT prophylaxis: encourage ambulation and already anticoagulated Complexity: Acute illness with systemic symptoms (MOD). Risk: Use/consideration of therapy requiring intensive monitoring: parenteral nephrotoxic antibiotics, ex: gentamycin, vancomycin (anaphylaxis, WHITLEY/ATN, renal failure); BMP, trough levels (HIGH). Admission to hospital-level care was considered or occurred (HIGH). Advance Directive: FULL CODE Anticipated Discharge - Date - 11/25 - [facility] Total time spent (which include face to face and non face to face encounters) : 65 minutes. Extended Emergency Contact Information Primary Emergency Contact: Deidra Vang Address: [address] of [place] Mobile Relation: Daughter Secondary Emergency Contact: Jesus Vang Mobile Relation: Spouse Preferred language: [place] 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 No Jfefry Sal MD Division of Hospitalist Medicine Inpatient Medical Services/[facility] documented in this encounter [facility] 10-04-2023 Telephone encounter Note Name of Caller: Salazar Contact Reason for Appointment: Salazar has procedure 10/05/23 that she wasn't aware of until today. Salazar is in a fpc and transportation is made through them. [facility] in [place]. Salazar states she thought the stint was already removed. Please call her daughter Deidra SILVA) to reschedule if needed. Office Name: URO [facility] 10-04-2023 Miscellaneous Notes Name of Caller: Salazar Contact Reason for Appointment: Salazar has procedure 10/05/23 that she wasn't aware of until today. Salazar is in a fpc and transportation is made through them. [facility] in [place]. Salazar states she thought the stint was already removed. Please call her daughter Deidra SILVA) to reschedule if needed. Office Name: URO 09/27/23 Cytoscopy, left ureteral stent removal , left flexible ureteroscopic laser lithotripsy. Follow up PRN Mili documented in this encounter [facility] 09-27-2023 Note Formatting of this n ote might be different from the original. Report called to [facility]. Transport arranged with [facility] 09-27-2023 Note Formatting of this n ote might be different from the original. Report called to [facility]. Transport arranged with [facility] Hor[facility]ath [facility] 09-27-2023 Miscellaneous Notes Report called to [facility]. Transport arranged with Bear Horvath PreOp Dx 8 mm left renal calculus, left ureteral stent PostOp Dx Same Operation Cystoscopy, , flouroscopy, left ureteral stent removal, left ureteroscopy, flexible ureteroscopic laser lithotripsy, Surgeon Bashir Vásquez MD Assist Kavin Rodriguez MD EBL Minimal Drains none Jose Specimen Condition To PACU This is a 73 y.o. patient who resideds at an [facility] presents with a 8 mm left renal calculus and left ureteral stent. After having a discussion on treatment options, risks and benefits, the patient wishes to proceed forward with surgical intervention Patient was brought to the operating room. A thorough time out was performed and everyone present was in agreement. Patient was placed on OR table. Anesthesia and lines were maintained by the anesthesia team. Patient was placed in the dorsal lithotomy position. Prepped and draped in usual fashion. Pressure points were padded. A cystourethroscope was inserted through the urethra and the bladder was inspected. The left ureteral stent grasped, removed to the meatus. A sensor wire was advanced to the level of the kidney-through the stent. Stent then removed. A flexible ureteroscope was passed over the Sensor wire and advanced into the left kidney without difficulty. The 8 mm stone was visualized and laser lithotripsied using the holmium laser. There was another 5 mm stone in a calyx, it too was dusted with the laser. No other stones present. The ureteroscope was removed, The bladder was emptied. A 16 fr jose was placed and patient awoken from anesthesia. documented in this encounter [facility] 09-27-2023 Telephone encounter Note 09/27/23 Cytoscopy, left ureteral stent removal , left flexible ureteroscopic laser lithotripsy. Follow up PRN Mili [facility] Work Phone: 09-27-2023 Note Formatting of this n ote might be different from the original. PreOp Dx 8 mm left renal calculus, left ureteral stent PostOp Dx Same Operation Cystoscopy, , flouroscopy, left ureteral stent removal, left ureteroscopy, flexible ureteroscopic laser lithotripsy, Surgeon Bashir Vásquez MD Assist Kavin Rodriguez MD EBL Minimal Drains none Jose Specimen Condition To PACU This is a 73 y.o. patient who resideds at an [facility] presents with a 8 mm left renal calculus and left ureteral stent. After having a discussion on treatment options, risks and benefits, the patient wishes to proceed forward with surgical intervention Patient was brought to the operating room. A thorough time out was performed and everyone present was in agreement. Patient was placed on OR table. Anesthesia and lines were maintained by the anesthesia team. Patient was placed in the dorsal lithotomy position. Prepped and draped in usual fashion. Pressure points were padded. A cystourethroscope was inserted through the urethra and the bladder was inspected. The left ureteral stent grasped, removed to the meatus. A sensor wire was advanced to the level of the kidney-through the stent. Stent then removed. A flexible ureteroscope was passed over the Sensor wire and advanced into the left kidney without difficulty. The 8 mm stone was visualized and laser lithotripsied using the holmium laser. There was another 5 mm stone in a calyx, it too was dusted with the laser. No other stones present. The ureteroscope was removed, The bladder was emptied. A 16 fr jose was placed and patient awoken from anesthesia. [facility] 09-27-2023 Note Formatting of this n ote might be different from the original. PreOp Dx 8 mm left renal calculus, left ureteral stent PostOp Dx Same Operation Cystoscopy, , flouroscopy, left ureteral stent removal, left ureteroscopy, flexible ureteroscopic laser lithotripsy, Surgeon Bashir Vásquez MD Assist Kavin Rodriguez MD EBL Minimal Drains none Jose Specimen Condition To PACU This is a 73 y.o. patient who resideds at an [facility] presents with a 8 mm left renal calculus and left ureteral stent. After having a discussion on treatment options, risks and benefits, the patient wishes to proceed forward with surgical intervention Patient was brought to the operating room. A thorough time out was performed and everyone present was in agreement. Patient was placed on OR table. Anesthesia and lines were maintained by the anesthesia team. Patient was placed in the dorsal lithotomy position. Prepped and draped in usual fashion. Pressure points were padded. A cystourethroscope was inserted through the urethra and the bladder was inspected. The left ureteral stent grasped, removed to the meatus. A sensor wire was advanced to the level of the kidney-through the stent. Stent then removed. A flexible ureteroscope was passed over the Sensor wire and advanced into the left kidney without difficulty. The 8 mm stone was visualized and laser lithotripsied using the holmium laser. There was another 5 mm stone in a calyx, it too was dusted with the laser. No other stones present. The ureteroscope was removed, The bladder was emptied. A 16 fr jose was placed and patient awoken from anesthesia. [facility] 09-27-2023 History of Present illness Narrative Received call from [facility] stating [facility] called earlier stating they will be late. As of 8:55am, transportation had not yet arrived. [facility] to call [facility] to ask ETA. [facility] stated they did call [facility] and verified Ms. Coyle could still be seen today. documented in this encounter [facility] 09-26-2023 Telephone encounter Note Notified Ms. Coyle has planned surgery in the morning and needs to arrive to [facility] at 8am. Her residence is [facility]. Per report, the facility has not yet been able to secure a transportation company who can meet her needs. Call placed to [facility] ([phone]) and spoke with the Adiel STEPHEN. Adiel shared he has called 7 companies and has been trying to find transportation for a week now. He planned to call [facility] next as he has used them in the past. Offered to call companies for Steve. Chun reviewed concern the only option, if transportation cannot be found, is to have Ms. Coyle be brought in tonight and stay in the ED under observation. Adiel stated additional concern that Ms. Coyle will need to return to [facility] for a follow up appointment 10/04. Per [facility], appointment time is 10:20am. Call placed to [facility] ([phone]) and they declined citing lack of availability. Call placed to [facility] ([phone]) and spoke with Jaylyn. Jaylyn confirmed [facility] is able to accept and will be at [facility] in the morning between 7:00a-7:15a. Verified [facility]'s address. Reviewed insurance, physician at [facility] (Dr. Rivera) and room at [facility] ([facility]). Shared current weight per [facility] (314 lbs). Verified surgery site is [facility]. Reviewed no oxygen per [facility]. Return trip will be needed. Follow up appointment 10/04 also scheduled with [facility]. They will arrive to [facility] at 9:15am for her 10:20am at [facility] [address] per [facility]. Return trip may be required depending on length of procedure. Call placed to [facility] Morris to update him of the above. Notified Duc Holguin, post anesthesia care unit nurseChange Management Manager Care Management with the [facility]. No further needs at this time. [facility] 09-26-2023 Miscellaneous Notes Notified Ms. Coyle has planned surgery in the morning and needs to arrive to [facility] at 8am. Her residence is [facility]. Per report, the facility has not yet been able to secure a transportation company who can meet her needs. Call placed to [facility] ([phone]) and spoke with the Adiel STEPHEN. Adiel shared he has called 7 companies and has been trying to find transportation for a week now. He planned to call [facility] next as he has used them in the past. Offered to call companies for Adiel. Adiel reviewed concern the only option, if transportation cannot be found, is to have Ms. Coyle be brought in tonight and stay in the ED under observation. Adiel stated additional concern that Ms. Coyle will need to return to [facility] for a follow up appointment 10/04. Per epic, appointment time is 10:20am. Call placed to [facility] ([phone]) and they declined citing lack of availability. Call placed to [facility] ([phone]) and spoke with Jaylyn. Jaylyn confirmed [facility] is able to accept and will be at [facility] in the morning between 7:00a-7:15a. Verified [facility]'s address. Reviewed insurance, physician at [facility] (Dr. Rivera) and room at [facility] ([facility]). Shared current weight per [facility] (314 lbs). Verified surgery site is [facility]. Reviewed no oxygen per [facility]. Return trip will be needed. Follow up appointment 10/04 also scheduled with [facility]. They will arrive to [facility] at 9:15am for her 10:20am at [facility] [address] per [facility]. Return trip may be required depending on length of procedure. Call placed to [facility] Morris to update him of the above. Notified Duc Holguin RN Change Management Manager Care Management with the [facility]. No further needs at this time. documented in this encounter [facility] 09-26-2023 History and physical note History Of Present Illness Salazar Coyle is a 73 y.o. female presenting with a left Ureteropelvic junction calculus, has a left ureteral stent in place Past Medical History She has a past medical history of A-fib (CMS/HCC) (HCC), Anemia, Diabetes (HCC), Lymphedema, and Obesity. Surgical History She has no past surgical history on file. Social History She reports that she has never smoked. She has never used smokeless tobacco. She reports that she does not drink alcohol and does not use drugs. Allergies Ertapenem Medications No medications prior to admission. Review of Systems Physical Exam Last Recorded Vitals There were no vitals taken for this visit. Relevant Results left Ureteropelvic junction calculus, has a left ureteral stent in place Assessment/Plan Active Problems: There are no active Hospital Problems. Patient has a 8mm left UPJ ureteral calculus, left ureteral stent. Discussed options including observation, conservative therapy, Ureteroscopic laser lithotripsy with stent placement. Discussed indications for Cystoscopy, pyelograms, ureteroscopic laser lithotripsy, stent placement, discussed procedure, expectations, risks and alternatives. Discussed possible need for additional procedures, also discussed risks including, but not limited to Failure of procedure, Bleeding, infection, TN, Stroke, PE, . Patient understands and agrees to proceed. Informed consent obtained. Mili [facility] Work Phone: 09-26-2023 History and physical note History Of Present Illness Salazar Coyle is a 73 y.o. female presenting with a left Ureteropelvic junction calculus, has a left ureteral stent in place Past Medical History She has a past medical history of A-fib (CMS/HCC) ([facility]), Anemia, Diabetes ([facility]), Lymphedema, and Obesity. Surgical History She has no past surgical history on file. Social History She reports that she has never smoked. She has never used smokeless tobacco. She reports that she does not drink alcohol and does not use drugs. Allergies Ertapenem Medications No medications prior to admission. Review of Systems Physical Exam Last Recorded Vitals There were no vitals taken for this visit. Relevant Results left Ureteropelvic junction calculus, has a left ureteral stent in place Assessment/Plan Active Problems: There are no active Hospital Problems. Patient has a 8mm left UPJ ureteral calculus, left ureteral stent. Discussed options including observation, conservative therapy, Ureteroscopic laser lithotripsy with stent placement. Discussed indications for Cystoscopy, pyelograms, ureteroscopic laser lithotripsy, stent placement, discussed procedure, expectations, risks and alternatives. Discussed possible need for additional procedures, also discussed risks including, but not limited to Failure of procedure, Bleeding, infection, TN, Stroke, PE, . Patient understands and agrees to proceed. Informed consent obtained. Mili documented in this encounter [facility] [employer] 08-09-2023 Miscellaneous Notes S/W, follow up I did inform patient daughter of transport today to [facility]. Daughter noted concern about patient wounds and condition she came in from [facility]. I did provide Daughter with the number to [facility] to call and report her concerns. I did ask daughter if she still wanted the patient to return to [facility] and she confirmed that she did. She noted the patient had been moved several times and she did not wish to do so again. Discharge med list transmitted to [facility] per [facility] request. 7000 completed in [facility] per TCC request. Facility notified via [facility]. Images from the original note were not included. Care Management Progress Note DC orders in and signed by Dr. Rivera. TERMINAL OPERATOR set up transport for 2:30 PM. Patient is returning skilled instead of ECF. ICHTHYOLOGY TEACHER tasked in [facility] to send 7000 and DC info to [facility]. DC to SNF in stable condition. Discharge Milestones and Delays Expected Date/Time: 08/09/2023 Disposition: [facility] Facility Transport status: No current request Discharge Milestones Completed Place discharge order Complete med reconciliation Case mgmt discharge readiness Clinical Stability Diagnsotic Workup Expected Discharge History Expected Date/Time Set By Reviewed At 08/09/2023 Paige Rivera DO 08/09/2023 10:32 AM Auth started for return to [facility]" 08/10/2023 Nancy Gastelum, MATHEUS 08/09/2023 8:28 AM 08/10/2023 Nancy Gastelum, MATHEUS 08/08/2023 8:47 AM Downgraded to Medical Awaiting Attending to miguelangel clark" 08/09/2023 Nancy Gastelum, MATHEUS 08/07/2023 8:53 AM IV abx thru 08/15 Will need auth to return skilled" 08/08/2023 Nancy Gastelum, MATHEUS 08/03/2023 8:40 AM Palliative- Pain control 08/08/2023 Nancy Gastelum RN 08/02/2023 8:45 AM Failed SBT 08/08/2023 Nancy Gastelum RN 08/02/2023 8:45 AM Bedbound at [facility] 08/08/2023 Nancy Gastelum RN 08/01/2023 8:40 AM Bedbound at [facility] ID Cons" 08/08/2023 Nancy Gastelum RN 07/31/2023 8:33 AM From [facility] ECF Return referral [facility]" 11/07/2023 ZINA Doan CNP 07/30/2023 10:22 PM 11/07/2023 ZINA Doan CNP 07/30/2023 9:44 PM Length of Stay (Days): 10 GMLOS: 5.9 Sent updated notes to return back to [facility] via [facility] per TCC request. Await review and response regarding ability to accept. TCC notified. Received SecureChat from miguelangel Pizarro to start insurance auth. Messaged [facility] via [facility] to initiate pre-cert. TCC will continue to follow. Images from the original note were not included. Care Management Progress Note Patient remains in ICU for severe sepsis Clinical updates: Downgraded to Medical. Remains on IV abx through 08/15. [facility] able to take back skilled, awaiting clearance from Attending to start insurance pre-cert. Discharge plan: [facility] Discharge obstacles: Awaiting clinical stability TCC will continue to follow. Discharge Milestones and Delays Expected Date/Time: 08/10/[address] discharge order Complete med reconciliation Case mgmt discharge readiness Clinical Stability Diagnsotic Workup Expected Discharge History Expected Date/Time Set By Reviewed At 08/10/2023 Nancy Gastelum RN 08/08/2023 8:47 AM Downgraded to Medical Awaiting Attending to ok auth" 08/09/2023 Nancy Gastelum RN 08/07/2023 8:53 AM IV abx thru 08/15 Will need auth to return skilled" 08/08/2023 Nancy Gastelum RN 08/03/2023 8:40 AM Palliative- Pain control 08/08/2023 Nancy Gastelum RN 08/02/2023 8:45 AM Failed SBT 08/08/2023 Nancy Gastelum RN 08/02/2023 8:45 AM Bedbound at [facility] 08/08/2023 Nancy Gastelum RN 08/01/2023 8:40 AM Bedbound at [facility] ID Cons" 08/08/2023 Nancy Gastelum RN 07/31/2023 8:33 AM From [facility] Return referral sent in [facility]" 11/07/2023 ZINA Doan CNP 07/30/2023 10:22 PM 11/07/2023 ZINA Doan CNP 07/30/2023 9:44 PM Length of Stay (Days): 9 GMLOS: 5.9 ICU TRANSFER CHECKLIST Transfer Med Reconciliation (resume home meds if able, convert to PO if able) Complete Antibiotics (name, indication, duration, convert to PO if able) Yes, addressed in today's progress note Steroid (indication, duration, convert to PO if able) None Anticipated Page Medications (ICU initiated) or Dose Changes and Indication Yes, addressed in today's progress note Permanently Discontinued Home Medications and Reason for medication contraindication Yes, indication Holding lisinopril and baclofen. Jose Catheter (please remove if able) Yes, indication chronic indwelling jose Central Line (please remove if able) Yes, indication Has PICC line for abx Transfer Discussed with: Dr. Rivera If additional questions for ICU team within 24 hours of ICU transfer, page [phone]/Dr. Garner for clarifications. Electronically signed by @MEMDNR@ on @TDNR@ at @NOWNR@ PATIENT TRANSFERRED OUT OF ICU PATIENT ACCEPTED TO [facility] 72 yo CF PMHx ESBL ecoli bacteremia, dementia, A-fib on Eliquis, DMT2, PHOEBE, morbid obesity, bed bound from spine fractures, chronic Jose secondary to neurogenic bladder, chronic pain, anxiety, admitted with AMS from septic shock/ecoli bacteremia secondary to left UPJ calculus s/p stent . Intubated on 07/30, extubated on 08/01/23. On PO diuretics. Discussed with Rn Corrections , Dr. Garner. Images from the original note were not included. Care Management Progress Note Patient extubated over the weekend and is currently requiring oxygen at 4 liters. Remains on lasix drip and will transition to lasix iv bid. Plan for iv antibiotics at discharge until 08/15. Order for PICC placed. Will need bipap at facility. Per surgery no plan for surgical intervention. Did send message via [employer] to [facility] to determine if they will be able to accommodate antibiotic and bipap needs upon discharge. Will likely need to submit for insurance auth and need bipap settings placed on jenn for bipap to be ordered. . Discharge Milestones and Delays Expected Date/Time: 08/08/[address] discharge order Complete med reconciliation Case mgmt discharge readiness Clinical Stability Diagnsotic Workup Expected Discharge History Expected Date/Time Set By Reviewed At 08/08/2023 Nancy Gastelum RN 08/03/2023 8:40 AM Palliative- Pain control 08/08/2023 Nancy Gastelum RN 08/02/2023 8:45 AM Failed SBT 08/08/2023 Nancy Gastelum RN 08/02/2023 8:45 AM Bedbound at [facility] 08/08/2023 Nancy Gastelum RN 08/01/2023 8:40 AM Bedbound at [facility] ID Cons" 08/08/2023 Nancy Gastelum RN 07/31/2023 8:33 AM From [facility] ECF Return referral sent in [facility]" 11/07/2023 ZINA Doan CNP 07/30/2023 10:22 PM 11/07/2023 ZINA Doan CNP 07/30/2023 9:44 PM Length of Stay (Days): 7 GMLOS: 5.9 Family Communication Number Called: [phone] and [phone] Name of Designated Family Registered Nurse Maternity: Martha Relationship: Daughter (POA) and spouse Phone Call Outcome: Spoke to both daughter and . Family Registered Nurse Maternity Updated on the Following: updated on patient status, both ok for PICC line. Images from the original note were not included. Care Management Progress Note Patient remains in ICU for severe sepsis Clinical updates: Continues intubated and on ventilator. Palliative LEONIDAS spoke with dtr/POA, plan for better pain control. Patient is bedbound/Raheem lift at baseline Discharge plan: Return to ECF Discharge obstacles: Awaiting clinical stability TCC will continue to follow. Discharge Milestones and Delays Expected Date/Time: 08/08/[address] discharge order Complete med reconciliation Case mgmt discharge readiness Clinical Stability Diagnsotic Workup Expected Discharge History Expected Date/Time Set By Reviewed At 08/08/2023 Nancy Gastelum RN 08/03/2023 8:40 AM Palliative- Pain control 08/08/2023 Nancy Gastelum RN 08/02/2023 8:45 AM Failed SBT 08/08/2023 Nancy Gastelum RN 08/02/2023 8:45 AM Bedbound at [facility] 08/08/2023 Nancy Gastelum RN 08/01/2023 8:40 AM Bedbound at [facility] ID Cons" 08/08/2023 Nancy Gastelum RN 07/31/2023 8:33 AM From [facility] Return referral sent in [facility]" 11/07/2023 ZINA Doan CNP 07/30/2023 10:22 PM 11/07/2023 ZINA Doan CNP 07/30/2023 9:44 PM Length of Stay (Days): 4 GMLOS: 9.9 Patient remains intubated and on ventilator. Insulin gtt still infusing. TCC will continue to follow. ] Family Communication Name of Designated Family Registered Nurse Maternity: deidra Coyle Relationship: daughter Phone Call Outcome: I spoke with the individual listed above. Family Registered Nurse Maternity Updated on the Following: updated on plan of care and the events of the last 12-24 hours during the patients admission, Voiced understanding of plan of care Care Managment Initial Assessment Date: 07/31/2023 Patient Name: Salazar Coyle : 1950 Patient Information Source of Information: Patient Registered Nurse Maternity Name/Contact Information: Jesus via telephone Cognition/Language: Confused at baseline Permission given to speak with patient career services representative/caregiver as indicated: Yes Confirmation of Payer with patient/family: Yes Payer Name: Bk [place]: No Confirmation of Primary Care Physician: Confirmed PCP Name: Dr. Paige Rivera Seen in last 2 years?: Yes Primary Caregiver: ([facility] staff) If assistance needed, confirmed caregiver ready, willing and able to care for patient at discharge: Yes Confirmed with: [facility] via [facility] Living Arrangements Current Residence: Number of Floors Number of Entry Steps: Bed/Bath Levels: Facility: Residential/Residental Care Facility Name: [facility] Plan to Return: Yes Lives with: ([facility] staff and residents) Support Systems: Spouse/significant other, Children, Parent, Family members, Comments (Other) ([facility] staff and residents) Activities of Daily Living Ambulation: Total Care Bathing/Dressing: Total Care Elimination/Continence/Toileting: Total Care Feeding: Independent Who Assists with Activities of Daily Living: [facility] staff Instrumental Activities of Daily Living Prescription Coverage: Yes [facility] Medication Management: ([facility] nurses manage meds) Transportation/Shopping: Transportation Mode: (Family and ECF provide all necessities) Needs Assistance with Transportation at Discharge: Yes (TERMINAL OPERATOR to set up return transport) Meal Preparation: Assistance Provider Meal Prep Assistance Provider Name: ECF staff Laundry/Cleaning: Assistance Provider Laundry/Cleaning Assistance Provider Name: ECF staff Finances/Bill Paying: Assistance Provider Finances/Bill Payer Assistance Provider Name: Jesus Communication: Independent Types of Care Services/Equipment Utilized Care Services: Dialysis Type: Durable Medical Equipment: Wheelchair (standard or power), Hospital Bed, Raheem Lift, Raised Toilet Seat, Shower Seat (Grab bars) Patient's Goal/Discharge Plan Patient expects to be discharged to: Return to [facility] Discharge Planning Actions: Continue to follow Patient's Choice Rights and [employer] and Collaborative Relationships Disclosed as Indicated for Post-Acute Care: Interdisciplinary Team Engagement: Social Work Referral for: Additional Information: IA completed over the phone with Jesus. Introduced self and role. Patient is admitted to ICU for severe sepsis. Found to have cystitis on admission, stent placed \\yesterday. Has chronic Jose. Patient lives in [facility], [facility] to set up return transport to [facility]. Sees facility Fashion Intern Dr Paige Rivera (PCP) routinely. Has insurance and prescription coverage, uses [facility]. Jesus denies any financial difficulties. Plan to return to [facility] when medically stable, confirmed that patient is a Medicaid bed hold in [facility]. Jesus verbalizes understanding and is in agreement with POC Nancy Gastelum RN Referral placed to return back to [facility] via [facility] per TCC request. Await review and response regarding ability to accept. TCC notified. PreOp Dx Left ureteral calculus, UTI PostOp Dx Same Operation Cystoscopy, Left ureteral stent placement ( 6x Variable length) Surgeon Bashir Vásquez MD AssistNone EBL Minimal Drains 6fr X Variable length Jose Specimen None Condition To PACU This is a 72 y.o. patient who presents with Left ureteral calculus, UTI, sepsis, was in ICUY at [facility]. After having a discussion on treatment options, risks and benefits, the patient wishes to proceed forward with surgical intervention. Consent obtained from via Phone. Patient was brought to the operating room. A thorough time out was performed and everyone present was in agreement. Patient was placed on OR table. Anesthesia and lines were maintained by the anesthesia team. Patient was placed in the dorsal lithotomy position. Prepped and draped in usual fashion. Pressure points were padded. A cystourethroscope was inserted through the urethra and the bladder was inspected. 0.035 glide wire placed up the Left side,a 6x Variable length stent was placed over wire and placed into position using fluoroscopic guidance. Wire removed, Left Stent in good position. Scope removed. Patient awakened after tolerating procedure well. documented in this encounter [facility] 08-09-2023 History of Present illness Narrative Department of Internal Medicine Division of Endocrinology, Diabetes, & Metabolism Endocrinology Note Patient Name: Salazar Cyole : 1950 AGE: 72 y.o. Room/Bed: A Admission Date: 07/30/2023 Visit Date: 08/09/2023 Reason for Endocrine Consult: Hyperglycemia requiring insulin GGT, on steroids and tube feeds Provider/Team Requesting Consult: Dr. Del Real PCP: Paige Rivera DO Outpt Desktop Support Associate: Yes Dr. Woods ASSESSMENT: Type II Diabetes with hyperglycemia Urosepsis versus pyelonephritis Severe sepsis History of ESBL bacteremia requiring long dose meropenem History left UPJ calculus Chronic Jose with neurogenic bladder Leukocytosis Metabolic acidosis Lactic acidosis NAGMA CKD stage IIIb WHITLEY Hypertension Hyperlipidemia PHOEBE Noncompliance to CPAP Chronic lower extremity wounds Chronic venous stasis PLAN: Continue to Lantus 30 units nightly Continue Humalog 5 units TID with meals Continue humalog low dose sliding scale TID with meals on carb diet, fluid restriction Fluid restriction for fluid volume overload and acute kidney injury ICU goal <180 GMF goal <150 POCT BG ACHS Hypoglycemia management per protocol Carb controlled diet ANTICIPATED ENDOCRINE HOME GOING RECOMMENDATIONS: Optimized for Discharge from Endocrine standpoint: Yes Home Going Endocrine Rx Recommendations-- Lantus 30 units nightly Humalog -5 units 3 times daily before meals plus low-dose sliding scale Anticipate insulin needs to decrease as infection improves and diuresis continues Outpt Follow Up-- Clinical clinic endocrinology SUBJECTIVE/HPI: CHIEF COMPLAINT: Chief Complaint Patient presents with Altered Mental Status 72 YO female w/PMH dementia, T2DM, morbid obesity, PHOEBE, chronic Jose 2/2 neurogenic bladder, Anxiety and chronic pain. OF note, patient admitted May 2022 w/ ESBL E. Coli bacteremia with left UPJ calculus s/p stent and extended IV meropenem. Patient did require laser lithotripsy and stent exchange at this time. Patient arrived to [facility] ED for altered mental status. Cystoscopy, left ureteral stent placement completed 07/31/2023 Type of DM: 2 Onset of DM: Home DM Medication Regimen: Lantus 10 units nightly Humalog 3 units 3 times daily before meals DM control (last A1c/glucose data): Lab Results Component Value Date HGBA1C 9.0 (H) 07/30/2023 Today- Tolerating diet Patient reports appetite is improving Patient denies shortness of breath, chest pain, abdominal pain, nausea Blood sugars reviewed and listed below Patient alert but confused Fluid restriction Creat: 1.17, GFR: 49.1 Glucose Date/Time Value Ref Range Status 08/09/2023 11:42 AM 173 (H) 70 - 100 mg/dL Final 08/09/2023 08:01 AM 125 (H) 70 - 100 mg/dL Final 08/08/2023 09:16 PM 173 (H) 70 - 100 mg/dL Final 08/08/2023 05:24 PM 123 (H) 70 - 100 mg/dL Final 08/08/2023 12:47 PM 129 (H) 70 - 100 mg/dL Final 08/08/2023 07:40 AM 147 (H) 70 - 100 mg/dL Final Review of Systems Constitutional: Positive for appetite change and fatigue. Respiratory: Negative for shortness of breath. Cardiovascular: Positive for leg swelling. Negative for chest pain and palpitations. Gastrointestinal: Negative for abdominal pain. Endocrine: Negative for polydipsia, polyphagia and polyuria. Skin: Positive for wound. Neurological: Positive for weakness. ROS negative except for those mentioned in HPI. OBJECTIVE: Vitals: 08/09/23 0900 08/09/23 1000 08/09/23 1100 08/09/23 1200 BP: BP Location: Patient Position: Pulse: 54 64 70 64 Resp: 16 13 15 14 Temp: 36.9 C (98.4 F) TempSrc: Axillary SpO2: 100% 97% 98% 100% Weight: Height: Physical Exam Vitals and nursing note reviewed. Constitutional: General: She is not in acute distress. Appearance: She is obese. She is ill-appearing. She is not toxic-appearing or diaphoretic. HENT: Head: Normocephalic. Nose: Nose normal. Mouth/Throat: Mouth: Mucous membranes are moist. Eyes: Conjunctiva/sclera: Conjunctivae normal. Cardiovascular: Rate and Rhythm: Normal rate and regular rhythm. Pulses: Normal pulses. Heart sounds: Normal heart sounds. No murmur heard. Pulmonary: Effort: Pulmonary effort is normal. No respiratory distress. Breath sounds: Normal breath sounds. Musculoskeletal: General: Swelling present. Right lower leg: Edema present. Left lower leg: Edema present. Skin: General: Skin is warm and dry. Neurological: Mental Status: She is alert. Psychiatric: Mood and Affect: Mood normal. Behavior: Behavior normal. 24 hour intake/output: Intake/Output Summary (Last 24 hours) at 08/09/2023 1331 Last data filed at 08/09/2023 1200 Gross per 24 hour Intake 550 ml Output 890 ml Net -340 ml Diet: Adult diet Regular; No Added Salt (3-4 gm); 4 carb choices (60 gm/meal) Medications (as per EMR): HomeMeds: Current Outpatient Medications Medication Instructions acetaminophen (TYLENOL) 325 mg, Oral, 3 times daily apixaban (ELIQUIS) 5 mg, Oral, 2 times daily ascorbic acid (VITAMIN C) 250 mg, Oral, Daily atorvastatin (LIPITOR) 20 mg, Oral, Daily baclofen (Lioresal) 5 MG tablet 1 tablet, Oral, 3 times daily bumetanide (BUMEX) 1 mg, Oral, 2 times daily Calcium Carbonate-Vitamin D (Oyster Shell Calcium/D) 500-5 MG-MCG tablet 1 tablet, Oral, Daily [START ON 08/10/2023] cyanocobalamin (VITAMIN B-12) 1,000 mcg, Oral, Daily Diclofenac Sodium (VOLTAREN) 4 g, Topical, 2 times daily donepezil (ARICEPT) 10 mg, Oral, Nightly [START ON 08/10/2023] folic acid (FOLVITE) 1 mg, Oral, Daily furosemide (LASIX) 40 mg, Oral, 2 time daily gabapentin (NEURONTIN) 300 mg, Oral, 3 times daily insulin glargine (LANTUS) 30 Units, SubCUTAneous, Nightly Insulin Lispro (HUMALOG) 5 Units, SubCUTAneous, 3 times daily with meals lisinopril 10 mg, Oral, Daily MEROPENEM IV 2 g, IntraVENous, Every 8 hours nystatin (Mycostatin) 790985 UNIT/GM powder No dose, route, or frequency recorded. oxyCODONE (ROXICODONE) 5 mg, Oral, Every 6 hours senna-docusate (Helena-Colace) 8.6-50 MG tablet 100 tablets, Oral, Every 24 hours sertraline (ZOLOFT) 50 mg, Oral, Daily Scheduled Meds:ammonium lactate, , Topical, BID apixaban, 5 mg, Oral, BID [Held by provider] ascorbic acid, 250 mg, Oral, Daily atorvastatin, 20 mg, Oral, Nightly [Held by provider] baclofen, 5 mg, Oral, TID bisacodyl, 10 mg, Rectal, BID bumetanide, 1 mg, Oral, BID cyanocobalamin, 1,000 mcg, Oral, Daily Diclofenac Sodium, 4 g, Topical, BID donepezil, 10 mg, Oral, Nightly famotidine (Pepcid) 20 mg in sodium chloride (PF) 0.9 % 10 mL injection, 20 mg, IntraVENous, BID folic acid, 1 mg, Oral, Daily gabapentin, 300 mg, Oral, TID insulin glargine, 36 Units, SubCUTAneous, Nightly insulin lispro, 0-6 Units, SubCUTAneous, TID WC insulin lispro, 5 Units, SubCUTAneous, TID WC ipratropium-albuterol, 3 mL, Nebulization, TID [Held by provider] lisinopril, 10 mg, Oral, Daily meropenem, 2,000 mg, IntraVENous, q8h miconazole, , Topical, BID nystatin, , Topical, BID oxyCODONE, 5 mg, Oral, q6h Petrolatum, , Topical, BID senna-docusate sodium, 2 tablet, Oral, BID sertraline, 50 mg, Oral, Daily sodium chloride 0.9%, 10 mL, IntraVENous, 2 times per day sodium chloride 0.9%, 10 mL, IntraCATHeter, q12h sodium chloride, 4 mL, Nebulization, BID stomahesive in petrolatum, , Topical, q8h Continuous Infusions: PRN Meds:PRN medications: [Held by provider] acetaminophen OR [Held by provider] acetaminophen, dextrose, dextrose, glucagon (rDNA), glucose, heparin flush, labetalol, LORazepam, naloxone, ondansetron ODT OR ondansetron, oxyCODONE, polyethylene glycol (PEG) 3350, sodium chloride 0.9%, sodium chloride 0.9% Diagnostic Workup: I reviewed pertinent Laboratory results, Radiographic results, and Other Clinical Notes at the time of today's encounter. Labs: No components found for: "LABA1C" No components found for: "EAG" Lab Results Component Value Date NA 140 08/09/2023 K 3.9 08/09/2023 CL 99 08/09/2023 CO2 33 (H) 08/09/2023 BUN 69 (H) 08/09/2023 CREATININE 1.17 (H) 08/09/2023 GLUCOSE 166 (H) 08/09/2023 CALCIUM 8.5 08/09/2023 No results found for: "CHLPL", CHOL No results found for: "TRIG" No results found for: "HDL" No results found for: "LDLCALC" No results found for: "VLDL" No results found for: "CHOLHDLRATIO" No results found for: "[id number]" No results found for: "TSH", "S3PNLDT", "X5OXDQU", "THYROIDAB" Radiology reportsas per the Radiologist Radiology: POCT glucose meter Result Date: 07/31/2023 Performed by: [facility], [address] [place] [id number] CLIA ID: [id number] POCT glucose meter Result Date: 07/31/2023 Performed by: [facility], [address] [place] [address] 98[address] CLIA ID: [id number] POCT glucose meter Result Date: 07/31/2023 Performed by: [facility], [address] [place] [address] 099[address] CLIA ID: [id number] POCT glucose meter Result Date: 07/31/2023 Performed by: [facility], [address] [place] [address] 287[address] CLIA ID: [id number] POCT glucose meter Result Date: 07/31/2023 Performed by: [facility], [address] [place] [address] 24503 CLIA ID: [id number] POCT glucose meter Result Date: 07/31/2023 Performed by: [facility], [address] [place] [address] [id number] CLIA ID: [id number] POCT glucose meter Result Date: 07/31/2023 Performed by: [facility], [address] [place] [address] 90[address] CLIA ID: [id number] POCT glucose meter Result Date: 07/31/2023 Performed by: [facility], [address] [place] [address] 15255 CLIA ID: [id number] POCT glucose meter Result Date: 07/31/2023 Performed by: [facility], [address] [place] [address] 269[address] CLIA ID: [id number] POCT glucose meter Result Date: 07/31/2023 Performed by: [facility], [address] [place] [address] 45591 CLIA ID: [id number] POCT glucose meter Result Date: 07/31/2023 Performed by: [facility], [address] [place] [address] 775[address] CLIA ID: [id number] POCT glucose meter Result Date: 07/31/2023 Performed by: [facility], [address] [place] [address] 49450 CLIA ID: [id number] POCT glucose meter Result Date: 07/31/2023 Performed by: [facility], [address] [place] [address] 33144 CLIA ID: [id number] Transthoracic echocardiogram (TTE) complete with contrast, bubble, strain, and 3D PRN Result Date: 07/31/2023 Left Ventricle: Left ventricle size is normal. Mildly increased wall thickness. Normal left ventricular systolic function. EF by 2D Simpsons Biplane is 63%. Normal wall motion. Right Ventricle: Right ventricle size is normal. Normal systolic function. Aortic Valve: Trileaflet. No cusp thickening. Mildly calcified cusps. Mild annular calcification. No regurgitation. Valve appears to open well velocities suggest Mild stenosis of the aortic valve. AV mean gradient is 9 mmHg. AV area by continuity VTI is 2.3 cm2. Left Atrium: Left atrium is dilated. POCT glucose meter Result Date: 07/31/2023 Performed by: [facility], [address] [place] [address] [id number] CLIA ID: [id number] POCT glucose meter Result Date: 07/31/2023 Performed by: [facility], [address] [place] [address] 34129 CLIA ID: [id number] POCT glucose meter Result Date: 07/31/2023 Performed by: [facility], [address] [place] [address] 40975 CLIA ID: [id number] POCT glucose meter Result Date: 07/31/2023 Performed by: [facility], [address] [place] [address] 96996 CLIA ID: [id number] FL GUIDANCE OR USE ONLY - NON RESULTABLE Result Date: 07/31/2023 There is no interpretation needed for this exam. ECG 12 lead Sinus tachycardia IVCD, consider LBBB Electronically Signed On 07-31-2023 06:14:25 EDT by Emilie Nicole POCT glucose meter Result Date: 07/31/2023 Performed by: [facility], [address] [place] [address] 60[address] CLIA ID: [id number] XR chest 1 view Result Date: 07/31/2023 Patient Name: SALAZAR COYLE : 1950 Exam Date/Time: 07/31/2023 04:56 Procedure: XR CHEST 1 VIEW Ordering Provider: DEL REAL CHELSEA Reason For Exam: verify ETT placement EXAMINATION: XR chest AP. EXAM DATE & TIME: 07/31/2023 4:56 AM EDT INDICATION: verify ETT placement ADDITIONAL INFORMATION: 72-year-old female presents for follow-up after intubation COMPARISON: Chest x-ray dated 07/31/2023 TECHNIQUE: Frontal view of the chest was obtained. FINDINGS: Lines/support devices: An endotracheal tube is present with its distal tip approximately 1.9 cm above the candy. Unchanged right internal jugular approach central venous catheter, terminating in the region of the cavoatrial junction. An NG/OG tube is present with its distal tip coursing subdiaphragmatically and beyond the [id number]. Cardiac leads project over the chest, somewhat limiting evaluation. Cardiomediastinal silhouette: The heart is slightly enlarged. Lungs/pleura: A small left pleural effusion is seen. Right pleural spaces are clear. No evidence of pneumothorax. Osseous structures: Degenerative changes of the spine and shoulders are seen. No acute osseous abnormality is demonstrated. Other findings: None. 1. Small left pleural effusion. Underlying consolidation is not excluded. 2. Lines and support devices as above. Report Dictated on Electronically Signed By: Catarino Sue MD Electronically Signed Date/Time: 07/31/2023 5:05 AM EDT POCT glucose meter Result Date: 07/31/2023 Performed by: [facility], [address] [place] [address] 09774 CLIA ID: [id number] POCT glucose meter Result Date: 07/31/2023 Performed by: [facility], [address] [place] [address] 96300 CLIA ID: [id number] XR chest 1 view Result Date: 07/31/2023 Patient Name: SALAZAR COYLE : 1950 Exam Date/Time: 07/31/2023 01:43 Procedure: XR CHEST 1 VIEW Ordering Provider: DEL REAL CHELSEA Reason For Exam: PROCEDURES PORTABLE CHEST CLINICAL INDICATION: PROCEDURES TECHNIQUE: Portable AP COMPARISON: 07/30/2023 FINDINGS: Right IJ central line tip projects over the SVC. No focal consolidation or pulmonary edema. No pleural effusions or pneumothorax. The heart demonstrates normal size. Calcification of the thoracic aorta is noted. Degenerative change of the thoracic spine is noted. No focal consolidation or pulmonary edema. Report Dictated on Electronically Signed By: Bashir Barnes MD Electronically Signed Date/Time: 07/31/2023 2:[address] abdomen pelvis wo IV contrast Result Date: 07/31/2023 Patient Name: SALAZAR COYLE : 1950 Exam Date/Time: 07/31/2023 00:27 Procedure: CT ABDOMEN PELVIS WO IV CONTRAST Ordering Provider: CALDERÓN SHANNON Reason For Exam: UTI, recurrent/complicated (Female) EXAMINATION: CT of the abdomen and pelvis without contrast. EXAM DATE & TIME: 07/31/2023 12:27 AM EDT INDICATION: UTI, recurrent/complicated (Female) ADDITIONAL INFORMATION: 72-year-old female with a provided history of UTI presents for evaluation COMPARISON: CT abdomen pelvis dated 06/10/2022 LIMITATIONS: Evaluation of the vasculature as well as the solid and hollow viscera is limited due to the lack of intravenous and oral contrast. Additional limitations are present secondary to portions of the patient outside the [id number] and associated beam hardening artifact. TECHNIQUE: Contiguous multiplanar 3 mm images were obtained from the levels of the lung bases through the pelvis without contrast. Images were reformatted in coronal and sagittal projections using the raw CT data and were interpreted in conjunction with the axial images to render the findings listed below. Dose reduction was employed with automated exposure control. FINDINGS: Included images of the lower thorax: There is bibasilar scarring/atelectasis. No focal lung consolidation or pleural effusion. Stable 3 mm right lower lobe pulmonary nodule (series 4, image 7). Previously identified 1.3 cm nodule is not included on the current examination. Hepatobiliary: Unremarkable liver without biliary dilation evident. Cholelithiasis is seen. Spleen: Unremarkable. Pancreas: There is fatty atrophy of the pancreas. Adrenal glands: Unremarkable. Kidneys, ureters and bladder: There is an 8 mm left UPJ calculus with mild to moderate upstream hydronephrosis (HU = 327). Additional coarse, nonobstructing left renal calculi are noted. No evidence of right-sided hydronephrosis or nephrolithiasis. A Jose catheter is present within the urinary bladder, decompressing it and limiting evaluation. Abdominal and pelvic vasculature: Atherosclerotic vascular calcifications are present in the abdominal aorta and its proximal major branches. Gastrointestinal: No evidence of obstruction. No pericecal inflammation to suggest acute appendicitis. Peritoneum, retroperitoneum and mesentery: No free fluid or free air. Inflammatory changes surround the left kidney. Lymph nodes: No abdominal or pelvic lymphadenopathy is evident. Solid pelvic viscera: The uterus appears surgically absent. Visualized musculoskeletal structures: No acute fracture or destructive osseous lesion is identified. Multilevel spondylosis is present. The bones are diffusely osteopenic. 1. Study limited as above. Allowing for this, there is a left UPJ calculus with mild to moderate upstream hydronephrosis. 2. Stable 3 mm right lower lobe pulmonary nodule. Recommendations for follow-up as below. Previously noted 1.3 cm pulmonary nodule is not included on the current examination. 3. Additional chronic findings as above. Updated Fleischner Society Guidelines for Management of Small Pulmonary Nodules Detected on CT (2017) SOLITARY NODULE: LOW RISK PATIENT < 6 mm - No follow-up 6 - 8 mm - 6 - 12 month follow-up, then consider 18 - 24 months > 8 mm - PET/CT, biopsy, or 3 month follow-up SOLITARY NODULE: HIGH RISK PATIENT < 6 mm - Optional 6 - 12 months follow-up (suspicious morphology or upper lobe) 6 - 8 mm - 6 - 12 month follow-up, then 18 - 24 months > 8 mm - PET/CT, biopsy, or 3 month follow-up MULTIPLE NODULES: LOW RISK PATIENT (Use most suspicious) All < 6 mm - No follow-up Any > 6 mm - 3 - 6 month follow-up, then 18 - 24 months MULTIPLE NODULES: HIGH RISK PATIENT (Use most suspicious) All < 6 mm - No follow-up Any > 6 mm - 3 - 6 month follow-up, then 18 - 24 months Report Dictated on Electronically Signed By: Catarino Sue MD Electronically Signed Date/Time: 07/31/2023 2:35 AM EDT POCT glucose meter Result Date: 07/31/2023 Performed by: [facility], [address] [place] [address] 32058 CLIA ID: [id number] ECG 12 lead Sinus or ectopic atrial rhythm Left bundle branch block Consider anterolateral infarct Compared to ECG 03/13/2021 22:47:47 Ectopic atrial rhythm now present Left bundle-branch block now present Sinus rhythm no longer present Intraventricular conduction delay no longer present T-wave abnormality no longer present Myocardial infarct finding still present Electronically Signed On 07-31-2023 02:00:48 EDT by Paige Flores POCT glucose meter Result Date: 07/31/2023 Performed by: [facility], [address] [place] [address] 64445 CLIA ID: [id number] POCT glucose meter Result Date: 07/31/2023 Performed by: [facility], [address] [place] [address] 38720 CLIA ID: [id number] POCT glucose meter Result Date: 07/31/2023 Performed by: [facility], [address] [place] [address] 09730 CLIA ID: [id number] POCT arterial blood gas Result Date: 07/31/2023 Performed by: [facility], [address] [facility] [facility] [id number] CLIA ID: [id number] POCT glucose meter Result Date: 07/30/2023 Performed by: [facility], [address] [place] [id number] CLIA ID: [id number] POCT glucose meter Result Date: 07/30/2023 Performed by: [facility], [address] [place] [address], [facility] [address] CLIA ID: [id number] POCT venous blood gas Result Date: 07/30/2023 Performed by: [facility], [address] [place] [address], [facility] [address] CLIA ID: [id number] POCT glucose meter Result Date: 07/30/2023 Performed by: [facility], [address] [place] [id number] CLIA ID: [id number] CT head wo IV contrast Result Date: 07/30/2023 [facility] : 1950 [id number] Exam Date/Time: 07/30/2023 14:19 Procedure: CT HEAD WO IV CONTRAST Ordering Provider: LEMON JAY Reason For Exam: Mental status change, unknown cause Indication: Mental status change Comparison date: 06/09/2022 FINDINGS: Dose reduction was employed with automated exposure control.3 mm unenhanced imaging of the brain performed. Images viewed in multiple orthogonal planes. Acute findings: No convincing acute ischemia or infarct, mass effect or midline shift, or hemorrhage. Bony structures:Unremarkable as seen. Orbits within normal limits, limited lack of contrast. Review of the paranasal sinuses shows stable right maxillary fluid-filled partially calcified structure etiology uncertain.. No acute brain process identified. Report Dictated on Electronically Signed By: Carlos Martinez MD Electronically Signed Date/Time: 07/30/2023 2:51 PM EDT XR chest 1 view Result Date: 07/30/2023 Patient Name: SALAZAR COYLE : 1950 [facility]#: [id number] Exam Date/Time: 07/30/2023 14:01 Procedure: XR CHEST 1 VIEW Ordering Provider: LEMON JAY Reason For Exam: ALTERED MENTAL STATUS EXAM TYPE: RADIOLOGIC EXAMINATION, CHEST, SINGLE VIEW FRONTAL (CXR SINGLE VIEW) EXAM DATE AND TIME: 07/30/2023 2:01 PM EDT INDICATION: Altered mental status COMPARISON: 06/10/2022 TECHNIQUE: A single frontal view of the thorax was obtained and reviewed. Special views: None. 1. Lines/Tubes/Devices/Hardware: Leads noted. Please confirm position and function of any catheters or attempted catheters clinically. 2. Lungs: No convincing acute process.. Limited due to portable technique. Consider follow-up with PA and lateral chest for persistent symptoms. 3. Pleura: No significant effusion. No significant pneumothorax. 4. Heart and mediastinum: Limited due to technique. 5. Upper abdomen: No acute process seen. 6. Thorax:No acute bony process Report Dictated on Electronically Signed By: Carlos Martinez MD Electronically Signed Date/Time: 07/30/2023 2:03 PM EDT POCT venous blood gas Result Date: 07/30/2023 Performed by: [facility], [address] [place] [id number] CLIA ID: [id number] POCT glucose meter Result Date: 07/30/2023 Performed by: [facility], [address] [place] [id number] CLIA ID: [id number] History/Other: Past Medical History: Past Medical History: Diagnosis Date A-fib (CMS/HCC) (HCC) Anemia Diabetes (HCC) Lymphedema Obesity Past Surgical History: History reviewed. No pertinent surgical history. Allergy(ies): Allergies Allergen Reactions Ertapenem Patient tolerated July 2022 Tolerated meropenem August 2023 Family History: No family history on file. Social History: Social History Tobacco Use Smoking status: Never Smokeless tobacco: Never Vaping Use Vaping Use: Never used Substance Use Topics Alcohol use: Never Drug use: Never I spent total time 35 minutes reviewing previous notes, test results, and face to face with the patient discussing the diagnosis and importance of compliance with the treatment plan as well as documenting on the day of the visit. Electronically signed by ZINA Barrett CNP 08/09/2023 1:31 PM Portions of the information within this encounter were entered using an electronic dictation system. Best attempts were made to edit/proofread the information prior to note completion. Despite the review of information, some errors may remain. If there are questions related to the information contained within the note please contact the signing physician directly. Images from the original note were not included. [facility] - Infectious Diseases Attending Progress Note Subjective: Follow up for septic shock, ESBL E coli bacteremia and UTI/pyelonephritis. S/p ureteral stent placement on 07/30 for Lt UPJ calculus. S/p extubation on 08/05/23. She was alert, felt well, no fever; denied pain, diarrhea, or any new complaint, has chronic lymphedema and stasis skin changes on both lower legs, she appeared comfortable. She was admitted from an ECF with altered mental status, lethargic and foul smelling; in hospital, she responded to name and noxious stimuli, her chronic jose noted with purulent material draining from catheter; she had fever (T 100.5 F), was hypotensive (BP 91/35 to 81/40); labs showed Lactic acidosis 5.6, leukocytosis WBC 13.6, bandemia 23, UA WBC 51-100, she was treated with sepsis bundle including NS 3000 ml, vancomycin and cefepime. Her CT abdomen and pelvis showed left UPJ calculus with mild to moderate upstream hydronephrosis, underwent Cystoscopy, ureteral stent placement, early AM on 07/31/23. She has h/o DM2, morbid obesity, PHOEBE, chronic Jose due to neurogenic bladder, anxiety, chronic pain, hospital admission in May of 2022 with ESBL E. Coli bacteremia. She was examined; notes, labs, and imaging were reviewed and treatment plan was discussed. Objective: Vitals: Patient Vitals for the past 24 hrs: BP Temp Temp src Pulse Resp SpO2 08/08/23 1539 111/67 36.8 C (98.3 F) Oral 77 16 92 % 08/08/23 1200 (!) 83/69 -- -- 65 14 100 % 08/08/23 1103 -- -- -- 62 12 98 % 08/08/23 1003 -- -- -- 83 14 -- 08/08/23 0903 -- -- -- 90 15 99 % 08/08/23 0803 110/58 -- -- 85 13 93 % 08/08/23 0730 -- 36.9 C (98.4 F) Oral 75 (!) 10 98 % 08/08/23 0703 -- -- -- 69 13 97 % 08/08/23 0337 114/75 36.8 C (98.3 F) Oral 77 (!) 10 98 % 08/07/23 2316 105/59 36.9 C (98.4 F) Oral 79 12 97 % 08/07/23 1949 93/64 37 C (98.6 F) Oral 89 12 97 % Physical Exam Vitals and nursing note reviewed. Constitutional: Appearance: She is obese. She appeared comfortable. Comments: improved. HENT: Head: Normocephalic and atraumatic. Nose: Nose normal. Mouth/Throat: Mouth: Mucous membranes are moist. Pharynx: Oropharynx is clear. Comments: extubated on 08/05/23 Eyes: Extraocular Movements: Extraocular movements intact. Pupils: Pupils are equal, round, and reactive to light. Cardiovascular: Rate and Rhythm: Normal rate and regular rhythm. Pulses: Normal pulses. Heart sounds: Normal heart sounds. Pulmonary: Effort: Pulmonary effort is normal. Breath sounds: few exp Rhonchi present. Abdominal: General: Abdomen is flat. Bowel sounds are normal. Palpations: Abdomen is soft. Genitourinary: Comments: Jose catheter in place. Musculoskeletal: General: Swelling present. Cervical back: Normal range of motion and neck supple. Right lower leg: Edema present. Left lower leg: Edema present. Skin: General: Skin is warm and dry. Comments: -Chronic lymphedema and stasis wounds on to bilateral lower extremities. -Bilateral feet with dry flaking skin -all folds with fungal like erythema. Neurological: Comments: A&Ox3. Psychiatric: Comments: armuntative. Labs: Recent Labs 08/06/23 0425 08/06/23 1651 08/07/23 0313 08/08/23 0322 NA 145 144 144 144 K 3.9 3.8 3.7 3.8 CL 104 101 101 103 CO2 33* 31* 33* 35* BUN 71* 71* 70* 68* CREATININE 1.11* 1.09* 1.11* 1.16* GLUCOSE 136* 149* 127* 161* CALCIUM 9.0 9.2 9.2 9.2 PROT 5.8* -- 6.1* -- BILITOT 0.6 -- 0.7 -- ALKPHOS 36* -- 45 -- AST 19 -- 22 -- ALT 12 -- 13 -- Recent Labs 08/06/2344308/06/23 1224 08/07/233 08/08/23 0322 WBC 4.5 8.5 7.0 6.7 HGB 7.0* 8.2* 8.6* 8.9* HCT 22.4* 26.4* 27.9* 29.2* PLT 119* 176 205 240 LYMPHOPCT 30 -- 29 31.2 MONOPCT 5 -- 5 8.7 BASOPCT -- -- -- 0.4 NEUTROABS -- -- -- 3.3 Micro: No results for input(s): "COVID19" in the last 72 hours. Collected Updated Procedure Result Status 08/02/202325808/04/2023 08 Blood culture Site #1 - Assess for effectiveness of treatment [[id number]] Blood, Venous Preliminary result Component Value Blood Culture No growth at 48 hours P 08/02/2023 0259 08/04/2023 0801 Blood culture Site #2 - Assess for effectiveness of treatment [[id number]] Blood, Venous Preliminary result Component Value Blood Culture No growth at 48 hours P Collected Updated Procedure Result Status 08/01/2023 0416 08/01/2023 1036 MRSA by PCR [[id number]] ESwab from Nasal Final result Component Value Staphylococcus aureus Not Detected mecA gene Not Detected 08/01/202341408/01/2023 1236 Respiratory culture and Stain [[id number]] Sputum Preliminary result Component Value Respiratory culture Culture in progress P Gram Stain Result Few Polymorphonuclear leukocytes per low power field P Few Epithelial cells per low power field P No organisms seen P 08/01/2023 0415 08/01/2023 1320 Pneumonia PCR Panel [[id number]] (Abnormal) Sputum Final result Component Value Staphylococcus aureus Not Detected Streptococcus agalactiae Not Detected Streptococcus pneumoniae Not Detected Streptococcus pyogenes Not Detected Haemophilus influenzae Not Detected Moraxella catarrhalis Not Detected Acinetobacter baumannii complex Not Detected Enterobacter cloacae complex Not Detected Escherichia coli Not Detected Klebsiella (Enterobacter) aerogenes Not Detected Klebsiella oxytoca Not Detected Klebsiella pneumoniae Not Detected Proteus spp Not Detected Pseudomonas aeruginosa Not Detected Serratia marcescens Not Detected Chlamydia pneumoniae Not Detected Legionella pneumophila Not Detected Mycoplasma pneumoniae Not Detected Adenovirus Not Detected Coronavirus Detected Abnormal Human Metapneumovirus Not Detected Human Rhinovirus/Enterovirus Detected Abnormal Influenza A Not Detected Influenza B Not Detected Parainfluenza virus Not Detected Respiratory Syncytial Virus Not Detected 07/30/2023 2153 07/30/2023 2316 SARS-CoV-2 by PCR [[id number]] Swab from Nasopharynx Final result Component Value SARS-CoV-2 Not Detected 07/30/2023 1652 08/01/2023 1102 Urine culture [[id number]] (Abnormal) Urine, Clean Catch Preliminary result Component Value Urine Culture Normal urogenital gaby present P 50,000-90,000 CFU/mL Escherichia coli Abnormal P 07/30/2023 1607 07/30/2023 1619 Occult blood x 1, stool [[id number]] Stool from Per Rectum Final result Component Value Fecal occult blood Negative 07/30/2023 1337 08/01/2023 1501 Blood culture Site #1 - Suspected Infection [[id number]] Blood, Venous Preliminary result Component Value Blood Culture No growth at 48 hours P 07/30/2023 1337 08/01/2023 0611 Blood culture Site #2 - Suspected Infection [[id number]] (Abnormal) Blood, Venous Preliminary result Component Value Blood Culture Gram-negative bacilli Panic P 07/30/2023 1337 08/01/2023 0611 Blood Culture Identification - Anaerobic [[id number]] (Abnormal) Blood, Venous Final result Component Value Escherichia coli Detected Abnormal CTX-M (ESBL gene) Detected Abnormal Lines: PICC (08/06/23) Radiography/Echo/Other: XR chest 1 view [[id number]] Collected: 08/01/23720 Order Status: Completed Updated: 08/01/23724 Narrative: Patient Name: SALAZAR COYLE : 1950 Exam Date/Time: 08/01/2023 06:36 Procedure: XR CHEST 1 VIEW Ordering Provider: DEL REAL CHELSEA Reason For Exam: Intubated Examination: Portable chest Indication: Intubated Comparison: Previous day Findings: The exam is limited secondary to portable technique and large patient body habitus. Leftward patient rotation also limits assessment. Endotracheal tube tip is at the level of the medial clavicles. NG tube is directed towards the stomach. Right IJ central venous catheter in similar position. Cardiac silhouette is slightly enlarged. There is blunting of left costophrenic angle. There is diffuse calcification of the aortic arch. No sizable pneumothorax however assessment of the lung apices is somewhat limited from overlying soft tissues. Impression: Impression: Limited study Cardiomegaly and calcified thoracic aorta. Report Dictated on Electronically Signed By: Austen Thurston MD Electronically Signed Date/Time: 08/01/2023 7:24 AM EDT FL GUIDANCE OR USE ONLY - NON RESULTABLE [[id number]] Resulted: 07/31/23634 Order Status: Completed Updated: 07/31/23634 Narrative: There is no interpretation needed for this exam. XR chest 1 view [[id number]] Collected: 07/31/23 050 Order Status: Completed Updated: 07/31/23505 Narrative: Patient Name: SALAZAR COYEL : 1950 Exam Date/Time: 07/31/2023 04:56 Procedure: XR CHEST 1 VIEW Ordering Provider: DEL REAL CHELSEA Reason For Exam: verify ETT placement EXAMINATION: XR chest AP. EXAM DATE & TIME: 07/31/2023 4:56 AM EDT INDICATION: verify ETT placement ADDITIONAL INFORMATION: 72-year-old female presents for follow-up after intubation COMPARISON: Chest x-ray dated 07/31/2023 TECHNIQUE: Frontal view of the chest was obtained. FINDINGS: Lines/support devices: An endotracheal tube is present with its distal tip approximately 1.9 cm above the candy. Unchanged right internal jugular approach central venous catheter, terminating in the region of the cavoatrial junction. An NG/OG tube is present with its distal tip coursing subdiaphragmatically and beyond the [id number]. Cardiac leads project over the chest, somewhat limiting evaluation. Cardiomediastinal silhouette: The heart is slightly enlarged. Lungs/pleura: A small left pleural effusion is seen. Right pleural spaces are clear. No evidence of pneumothorax. Osseous structures: Degenerative changes of the spine and shoulders are seen. No acute osseous abnormality is demonstrated. Other findings: None. Impression: 1. Small left pleural effusion. Underlying consolidation is not excluded. 2. Lines and support devices as above. Report Dictated on Electronically Signed By: Catarino Sue MD Electronically Signed Date/Time: 07/31/2023 5:05 AM EDT XR chest 1 view [[id number]] Collected: 07/31/235 Order Status: Completed Updated: 07/31/23251 Narrative: Patient Name: SALAZAR COYLE : 1950 Exam Date/Time: 07/31/2023 01:43 Procedure: XR CHEST 1 VIEW Ordering Provider: DEL REAL CHELSEA Reason For Exam: PROCEDURES PORTABLE CHEST CLINICAL INDICATION: PROCEDURES TECHNIQUE: Portable AP COMPARISON: 07/30/2023 FINDINGS: Right IJ central line tip projects over the SVC. No focal consolidation or pulmonary edema. No pleural effusions or pneumothorax. The heart demonstrates normal size. Calcification of the thoracic aorta is noted. Degenerative change of the thoracic spine is noted. Impression: No focal consolidation or pulmonary edema. Report Dictated on Electronically Signed By: Bashir Barnes MD Electronically Signed Date/Time: 07/31/2023 2:[address] abdomen pelvis wo IV contrast [[id number]] Collected: 07/31/23223 Order Status: Completed Updated: 07/31/23235 Narrative: [facility] : 1950 [id number] Exam Date/Time: 07/31/2023 00:27 Procedure: CT ABDOMEN PELVIS WO IV CONTRAST Ordering Provider: CALDERÓN SHANNON Reason For Exam: UTI, recurrent/complicated (Female) EXAMINATION: CT of the abdomen and pelvis without contrast. EXAM DATE & TIME: 07/31/2023 12:27 AM EDT INDICATION: UTI, recurrent/complicated (Female) ADDITIONAL INFORMATION: 72-year-old female with a provided history of UTI presents for evaluation COMPARISON: CT abdomen pelvis dated 06/10/2022 LIMITATIONS: Evaluation of the vasculature as well as the solid and hollow viscera is limited due to the lack of intravenous and oral contrast. Additional limitations are present secondary to portions of the patient outside the [id number] and associated beam hardening artifact. TECHNIQUE: Contiguous multiplanar 3 mm images were obtained from the levels of the lung bases through the pelvis without contrast. Images were reformatted in coronal and sagittal projections using the raw CT data and were interpreted in conjunction with the axial images to render the findings listed below. Dose reduction was employed with automated exposure control. FINDINGS: Included images of the lower thorax: There is bibasilar scarring/atelectasis. No focal lung consolidation or pleural effusion. Stable 3 mm right lower lobe pulmonary nodule (series 4, image 7). Previously identified 1.3 cm nodule is not included on the current examination. Hepatobiliary: Unremarkable liver without biliary dilation evident. Cholelithiasis is seen. Spleen: Unremarkable. Pancreas: There is fatty atrophy of the pancreas. Adrenal glands: Unremarkable. Kidneys, ureters and bladder: There is an 8 mm left UPJ calculus with mild to moderate upstream hydronephrosis (HU = 327). Additional coarse, nonobstructing left renal calculi are noted. No evidence of right-sided hydronephrosis or nephrolithiasis. A Jose catheter is present within the urinary bladder, decompressing it and limiting evaluation. Abdominal and pelvic vasculature: Atherosclerotic vascular calcifications are present in the abdominal aorta and its proximal major branches. Gastrointestinal: No evidence of obstruction. No pericecal inflammation to suggest acute appendicitis. Peritoneum, retroperitoneum and mesentery: No free fluid or free air. Inflammatory changes surround the left kidney. Lymph nodes: No abdominal or pelvic lymphadenopathy is evident. Solid pelvic viscera: The uterus appears surgically absent. Visualized musculoskeletal structures: No acute fracture or destructive osseous lesion is identified. Multilevel spondylosis is present. The bones are diffusely osteopenic. Impression: 1. Study limited as above. Allowing for this, there is a left UPJ calculus with mild to moderate upstream hydronephrosis. 2. Stable 3 mm right lower lobe pulmonary nodule. Recommendations for follow-up as below. Previously noted 1.3 cm pulmonary nodule is not included on the current examination. 3. Additional chronic findings as above. Updated Fleischner Society Guidelines for Management of Small Pulmonary Nodules Detected on CT (2017) SOLITARY NODULE: LOW RISK PATIENT < 6 mm - No follow-up 6 - 8 mm - 6 - 12 month follow-up, then consider 18 - 24 months > 8 mm - PET/CT, biopsy, or 3 month follow-up SOLITARY NODULE: HIGH RISK PATIENT < 6 mm - Optional 6 - 12 months follow-up (suspicious morphology or upper lobe) 6 - 8 mm - 6 - 12 month follow-up, then 18 - 24 months > 8 mm - PET/CT, biopsy, or 3 month follow-up MULTIPLE NODULES: LOW RISK PATIENT (Use most suspicious) All < 6 mm - No follow-up Any > 6 mm - 3 - 6 month follow-up, then 18 - 24 months MULTIPLE NODULES: HIGH RISK PATIENT (Use most suspicious) All < 6 mm - No follow-up Any > 6 mm - 3 - 6 month follow-up, then 18 - 24 months Report Dictated on Electronically Signed By: Catarino Sue MD Electronically Signed Date/Time: 07/31/2023 2:[address] head wo IV contrast [[id number]] Collected: 07/30/23 144 Order Status: Completed Updated: 07/30/231451 Narrative: Patient Name: SALAZAR COYLE : 1950 Exam Date/Time: 07/30/2023 14:19 Procedure: CT HEAD WO IV CONTRAST Ordering Provider: LEMON JAY Reason For Exam: Mental status change, unknown cause Indication: Mental status change Comparison date: 06/09/2022 FINDINGS: Dose reduction was employed with automated exposure control.3 mm unenhanced imaging of the brain performed. Images viewed in multiple orthogonal planes. Acute findings: No convincing acute ischemia or infarct, mass effect or midline shift, or hemorrhage. Bony structures:Unremarkable as seen. Orbits within normal limits, limited lack of contrast. Review of the paranasal sinuses shows stable right maxillary fluid-filled partially calcified structure etiology uncertain.. Impression: No acute brain process identified. Report Dictated on Electronically Signed By: Carlos Martinez MD Electronically Signed Date/Time: 07/30/2023 2:51 PM EDT XR chest 1 view [[id number]] Collected: 07/30/231402 Order Status: Completed Updated: 07/30/231419 Narrative: Patient Name: SALAZAR COYLE : 1950 [facility]#: [id number] Exam Date/Time: 07/30/2023 14:01 Procedure: XR CHEST 1 VIEW Ordering Provider: LEMON JAY Reason For Exam: ALTERED MENTAL STATUS EXAM TYPE: RADIOLOGIC EXAMINATION, CHEST, SINGLE VIEW FRONTAL (CXR SINGLE VIEW) EXAM DATE AND TIME: 07/30/2023 2:01 PM EDT INDICATION: Altered mental status COMPARISON: 06/10/2022 TECHNIQUE: A single frontal view of the thorax was obtained and reviewed. Special views: None. Impression: 1. Lines/Tubes/Devices/Hardware: Leads noted. Please confirm position and function of any catheters or attempted catheters clinically. 2. Lungs: No convincing acute process.. Limited due to portable technique. Consider follow-up with PA and lateral chest for persistent symptoms. 3. Pleura: No significant effusion. No significant pneumothorax. 4. Heart and mediastinum: Limited due to technique. 5. Upper abdomen: No acute process seen. 6. Thorax:No acute bony process Report Dictated on Electronically Signed By: Carlos Martinez MD Electronically Signed Date/Time: 07/30/2023 2:03 PM EDT 07/31/23 2D ECHO: Interpretation Summary Left Ventricle: Left ventricle size is normal. Mildly increased wall thickness. Normal left ventricular systolic function. EF by 2D Simpsons Biplane is 63%. Normal wall motion. Right Ventricle: Right ventricle size is normal. Normal systolic function. Aortic Valve: Trileaflet. No cusp thickening. Mildly calcified cusps. Mild annular calcification. No regurgitation. Valve appears to open well velocities suggest Mild stenosis of the aortic valve. AV mean gradient is 9 mmHg. AV area by continuity VTI is 2.3 cm2. Left Atrium: Left atrium is dilated. Echo Findings Left Ventricle Left ventricle size is normal. Mildly increased wall thickness. Normal left ventricular systolic function. EF by 2D Simpsons Biplane is 63%. Normal wall motion. Right Ventricle Right ventricle size is normal. Normal systolic function. Left Atrium Left atrium is dilated. Interatrial Septum No interatrial shunt visualized on color Doppler. Right Atrium Right atrium size is normal. Aortic Valve Trileaflet. No cusp thickening. Mildly calcified cusps. Mild annular calcification. No regurgitation. Valve appears to open well velocities suggest Mild stenosis of the aortic valve. AV mean gradient is 9 mmHg. AV area by continuity VTI is 2.3 cm2. Mitral Valve Not well visualized. Moderately calcified leaflets. Moderate annular calcification. Trace regurgitation. No stenosis noted. Tricuspid Valve Valve structure is normal. Mild (1+) regurgitation. Pulmonic Valve The pulmonic valve was not well visualized. Trace regurgitation. Pulmonary Artery Pulmonary artery was not well visualized. Aorta Normal sized sinuses of Valsalva and ascending aorta. IVC/Hepatic Veins IVC diameter is normal and decreases greater than 50% during inspiration; therefore the estimated right atrial pressure is normal (~3 mmHg). Pericardium No pericardial effusion. Study Details Image quality: fair. Heart rate: 86 bpm. The underlying ECG rhythm was sinus rhythm. Technical qualifiers: Technically difficult study due to patient's body habitus and procedure performed with the patient in a supine position. vented. Ultrasound enhancement agent was given to enhance imaging. Antimicrobials, Start/End Dates: Cefepime 07/29 Andres 07/29- Vanco 07/29-08/03 Impression: Septic shock. Improved. ESBL- E coli bacteremia. VDRF. Resolved. Extubated on 08/05/23. ESBL-E coli UTI/ pyelonephritis. Left UPJ calculus with mild to moderate upstream hydronephrosis, s/p cystoscopy and ureteral stent placement, on 07/31/23. H/o neurogenic bladder requiring chronic use of jose catheter. Morbid obesity disorder. Plan: Pt clinically improved, was admitted sick due to septic shock, ESBL- E coli bacteremia, UTI/ pyelonephritis and VDRF. S/p extubation on 08/05/23, and ureteral stent placement on 07/30, has chr jose catheter. Afebrile, hemodynamically ok. Recent blood and sputum cxs -neg so far. Pt allergic to ertapenem but tolerated meropenem, continue meropenem to complete 2 weeks treatment from negative cx date (08/01), through 08/16/23. She has chronic jose catheter. Surveillance blood cx x2 on 08/23/23 to document sterility. Opat in chart. Please call with any further question. Total time 50 minutes on this day of encounter includes counseling, coordinating plan of care, record and documentation review before and after visit including documentation and time not explicitly included on EMR time stamp for accounting for open encounter. Attempted on numerous occasion to put HOB to greater then 30 degrees for meals. Pt informed of risk of aspiration. Pt argumentative. Speech therapy at bedside earlier today and also discussed optimal eating position, Pt resistant Pt started yelling, HOB at 30 and bed in reverse trendelenburg [facility] Wound Care Progress Note Salazar Coyle AGE: 72 y.o. GENDER: female : 1950 Subjective: HISTORY of PRESENT ILLNESS HPI Salazar Coyle is a 72 y.o. female with follow up for multiple stage 3PI POA , all resolved, except Moisture associated skin damage, discussed with patient and RN, preventative dressing will apply daily . Patient resting in ICU bed at time of visit. Nursing turning and repositioning patient during time of visit. Lives in F. PAST MEDICAL HISTORY Active Ambulatory Problems Diagnosis Date Noted Hypertension 04/15/2021 Edema 04/11/2021 Foot ulcer (HCC) 04/13/2021 Hyperlipemia 04/15/2021 Bladder spasm 03/08/2021 Type 2 diabetes mellitus with hyperglycemia ([facility]) 03/08/2021 Wounds, multiple 04/11/2021 Degenerative disc disease, cervical 03/08/2021 Chronic pain 03/08/2021 Osteoarthrosis 03/08/2021 PAF (paroxysmal atrial fibrillation) ([facility]) 04/11/2021 Cognitive decline 04/15/2021 Morbid obesity with BMI of 60.0-69.9, adult ([facility]) 04/15/2021 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 ([facility]) 04/11/2021 Recurrent UTI 03/08/2021 Cerebrovascular accident ([facility]) 03/08/2021 Hyperglycemia 04/11/2021 Chronic indwelling Jose catheter 04/15/2021 CKD (chronic kidney disease) 04/11/2021 Asymptomatic bacteriuria 04/11/2021 Anemia 04/11/2021 Septic shock ([facility]) 06/09/2022 Inflammatory reaction due to indwelling ureteral stent, initial encounter ([facility]) 08/02/2022 Ureteropelvic junction calculus 08/07/2022 WHITLEY (acute kidney injury) ([facility]) 08/07/2022 Chronic venous stasis 08/07/2022 Radicular pain in right arm 01/08/2023 Resolved Ambulatory Problems Diagnosis Date Noted No Resolved Ambulatory Problems Past Medical History: Diagnosis Date A-fib ([facility]) ([facility]) Diabetes ([facility]) Lymphedema Obesity PAST SURGICAL HISTORY History reviewed. No pertinent surgical history. FAMILY HISTORY No family history on file. SOCIAL HISTORY Social History Tobacco Use Smoking status: Never Smokeless tobacco: Never Vaping Use Vaping Use: Never used Substance Use Topics Alcohol use: Never Drug use: Never ALLERGIES Allergies Allergen Reactions Ertapenem Patient tolerated July 2022 Tolerated meropenem August 2023 MEDICATIONS No current facility-administered medications on file prior to encounter. Current Outpatient Medications on File Prior to Encounter Medication Sig Dispense Refill acetaminophen (Tylenol) 325 MG tablet Take 325 mg by mouth 3 times daily. apixaban (Eliquis) 5 MG tablet Take 5 mg by mouth 2 times daily. ascorbic acid (Vitamin C) 250 MG tablet Take 250 mg by mouth daily. atorvastatin (Lipitor) 20 MG tablet Take 20 mg by mouth daily. baclofen (Lioresal) 5 MG tablet Take 1 tablet by mouth 3 times daily. Calcium Carbonate-Vitamin D (Oyster Shell Calcium/D) 500-5 MG-MCG tablet Take 1 tablet by mouth daily. Diclofenac Sodium (Voltaren) 1 % gel Apply 4 g topically 2 times daily. 50 g 1 donepezil (Aricept) 10 MG tablet Take 10 mg by mouth Nightly. furosemide (Lasix) 40 MG tablet Take 40 mg by mouth in the morning and 40 mg in the evening. gabapentin (Neurontin) 100 MG capsule Take 2 capsules (200 mg) by mouth 3 times daily. 180 capsule 2 insulin glargine (Lantus) 100 UNIT/ML injection Inject 10 Units under the skin Nightly. 10 mL 12 Insulin Lispro (Humalog) 100 UNIT/ML solution injection Inject 3 Units under the skin in the morning and 3 Units at noon and 3 Units in the evening. Inject with meals. 10 mL 2 lisinopril 10 MG tablet Take 10 mg by mouth daily. nystatin (Mycostatin) 533942 UNIT/GM powder senna-docusate (Helena-Colace) 8.6-50 MG tablet Take 100 tablets by mouth Every 24 hours. sertraline (Zoloft) 50 MG tablet Take 50 mg by mouth daily. REVIEW OF SYSTEMS Review of systems not obtained due to patient factors. Objective: BP 111/67 Pulse 77 Temp 36.8 C (98.3 F) (Oral) Resp 16 Ht 5' 5" (1.651 m) Wt (!) 350 lb (159 kg) SpO2 92% BMI 58.24 kg/m PHYSICAL EXAM Consitutional- Alert and Ox3 Skin - See assessment below Respiratory -Normal effort, no respiratory distress, no cyanosis. O2 via NC Abdomen - soft, nontender, and nondistended Lower Extremities - edema bilaterally lymphedema, dry thickened skin both feet Left neck: Decreased erythema, powder in place Mid lower abdomen fold: Skin intact with minimal erythema noted Left back mid skin fold: no open areas Left gluteal fold moisture present , blanchable , pink rash from sweat. Bilateral buttock: rash improved, no open skin noted, no open sores, blanchable skin, fragile skin. Surrounding skin intact. Left anterior thigh: resolved Left post thigh proximal: closed skin Left post thigh distal: closed skin Right post knee: closed Right lyons: closed LABS CBC: Lab Results Component Value Date WBC 6.7 08/08/2023 HGB 8.9 (L) 08/08/2023 HCT 29.2 (L) 08/08/2023 MCV 109.0 (H) 08/08/2023 PLT 240 08/08/2023 BMP: Lab Results Component Value Date NA 144 08/08/2023 K 3.8 08/08/2023 CL 103 08/08/2023 CO2 35 (H) 08/08/2023 PHOS 3.7 08/06/2023 BUN 68 (H) 08/08/2023 CREATININE 1.16 (H) 08/08/2023 PT/INR: No results found for: "PROTIME", INR Prealbumin: No results found for: PREALBUMIN Albumin:No components found for: LABALBU Sed Rate:No results found for: SEDRATE Micro: No components found for: "BC" Assessment/Plan: Right lyons: VLU fat level -resolved. Edema management as tolerated. BERLIN wrap on in AM off at HS. -Offload heels while in bed. Mid lower abdomen fold: stage 3 PI POA -may continue preventative dressing ; Cleanse with hibiclens and apply xeroform and dry dressing daily. Left anterior thigh: stage 3 PI POA -Resolved Left post thigh proximal: stage 3 PI POA re -resolved Left post thigh distal: stage 3 PI POA -resolved Right post knee: stage 3 PI POA -resolved Left back mid skin fold: stage 3 PI POA -resolved Bilateral buttock: MASD -secondary to diarrhea -Cleanse with ph balanced wipes apply zinc barrier q shift and PRN. -Turn q2 hrs -provide incont. Care. L gluteal fold - MASD -from sweat- xeroform and dry dressing daily and PRN Left neck fold: fungal improved. -Cleanse with hibiclens apply nystatin cream then powder, abd pad, and place in fold to prevent skin on skin contact. BID and prn. -All skin folds apply antifungal powder daily and as needed Nutritional support Wound Care to follow Please follow up at [facility] wound care center after hospital discharge. I personally obtained the arias and critical portions of the history and physical exam. I reviewed the labs, imaging studies, and electronic medical record. I reviewed the chart documentation and discussed the patient with treatment team members. I have edited the note to reflect my clinical findings and my assessment and plan. Please note, the time of this note does not reflect the time I saw this patient today, but the time of this documentaton. Portions of this note including HPI, ROS, impression/plan, and examination may have been copied forward from admission to today as to provide important historical information essential in contributing to medical decision making. Documentation has been reviewed and edited as necessary to support clinical decision making for today's visit and to reflect my own independent evaluation of this patient. Decision making for today's visit and to reflect my own independent evaluation of this patient. Images from the original note were not included. Hospitalist Progress Note 08/08/[id number]: Please page me ([phone]) for patient care issues. [phone]: Please page [facility] Hospitalist for any issues. Subjective: Admit Date: 07/30/2023 PCP: Paige Rivera, Room#: 222-09/222-09 A Interval History: No overnight issues. Denies chest pain, sob, abdominal pain, nausea, vomiting, diarrhea, constipation, fevers, or chills. Reports feeling well. Endorses leg pain BL. Adult diet Regular; No Added Salt (3-4 gm); 4 carb choices (60 gm/meal) 24HR INTAKE/OUTPUT: Intake/Output Summary (Last 24 hours) at 08/08/2023 1408 Last data filed at 08/08/2023 1328 Gross per 24 hour Intake 1781 ml Output 1645 ml Net 136 ml Past Medical History: Past Medical History: Diagnosis Date A-fib (CMS/HCC) (HCC) Anemia Diabetes (HCC) Lymphedema Obesity LABS: CBC: Recent Labs 08/06/23 1224 08/07/23 0313 08/08/23 0322 WBC 8.5 7.0 6.7 RBC 2.45* 2.55* 2.68* HGB 8.2* 8.6* 8.9* HCT 26.4* 27.9* 29.2* MCV 107.8* 109.4* 109.0* RDW 14.7 14.6 14.9 PLT 176 205 240 BMP: Recent Labs 08/06/23 1651 08/07/23 0313 08/08/23 0322 NA 144 144 144 K 3.8 3.7 3.8 CL 101 101 103 CO2 31* 33* 35* BUN 71* 70* 68* CREATININE 1.09* 1.11* 1.16* GLUCOSE 149* 127* 161* CALCIUM 9.2 9.2 9.2 ANIONGAP 12 10 6 LIVER PROFILE: Recent Labs 08/06/23 0425 08/07/23 0313 AST 19 22 ALT 12 13 BILITOT 0.6 0.7 ALKPHOS 36* 45 PROT 5.8* 6.1* PT/INR: No results for input(s): "PROTIME", "INR" in the last 72 hours. CARDIAC ENZYMES: No results for input(s): "TROPONINI" in the last 72 hours. Procalcitonin: No results found for: PROCAL COVID-19 PCR: No results for input(s): "COVID19" in the last 72 hours. Objective: Vitals: BP 110/58 Pulse 62 Temp 36.9 C (98.4 F) (Oral) Resp 12 Ht 5' 5" (1.651 m) Wt (!) 350 lb (159 kg) SpO2 98% BMI 58.24 kg/m Pulse Ox: SpO2 Av.4 % Min: 93 % Max: 100 % Supplemental O2: O2 Flow Rate (L/min): 2 L/min General appearance: No apparent distress, appears stated age and cooperative with exam, obese elderly female in NAD Respiratory: diminished BL , no wheezing. Cardiovascular: Regular rate and rhythm with no murmur Abdomen: Soft, non-tender, non-distended Skin: Skin color, texture, turgor normal. No rashes or lesions. Distal pulses intact in BL LE, Neurologic: grossly non-focal. Medications: ammonium lactate, , Topical, BID apixaban, 5 mg, Oral, BID [Held by provider] ascorbic acid, 250 mg, Oral, Daily atorvastatin, 20 mg, Oral, Nightly [Held by provider] baclofen, 5 mg, Oral, TID bisacodyl, 10 mg, Rectal, BID bumetanide, 1 mg, Oral, BID cyanocobalamin, 1,000 mcg, Oral, Daily Diclofenac Sodium, 4 g, Topical, BID donepezil, 10 mg, Oral, Nightly famotidine (Pepcid) 20 mg in sodium chloride (PF) 0.9 % 10 mL injection, 20 mg, IntraVENous, BID folic acid, 1 mg, Oral, Daily gabapentin, 300 mg, Oral, TID insulin glargine, 36 Units, SubCUTAneous, Nightly insulin lispro, 0-6 Units, SubCUTAneous, TID WC insulin lispro, 5 Units, SubCUTAneous, TID WC ipratropium-albuterol, 3 mL, Nebulization, TID [Held by provider] lisinopril, 10 mg, Oral, Daily meropenem, 2,000 mg, IntraVENous, q8h miconazole, , Topical, BID nystatin, , Topical, BID Petrolatum, , Topical, BID senna-docusate sodium, 2 tablet, Oral, BID sertraline, 50 mg, Oral, Daily sodium chloride 0.9%, 10 mL, IntraVENous, 2 times per day sodium chloride 0.9%, 10 mL, IntraCATHeter, q12h sodium chloride, 4 mL, Nebulization, BID stomahesive in petrolatum, , Topical, q8h Assessment Septic shock 2/2 chronic jose UTI ESBL ecoli bacteremia Right ureteral calculus s/p ureteral stent on 07/31/23 S/p PICC on 08/06/23, will need to continue merrem until 08/16/23 BC on 08/01 remain negative Transferred out of ICU on 08/07/23 ID Following Urology following given calculus, outpatient follow up on 08/22/23 Choledocholithiasis Asymptomatic Surgery following GI considering ESCP should pain arise Acute on chronic hypoxic respiratory failure 2/2 rhinovirus and enterovirus LLL infiltrate Wean o2 as tolerated Acute volume overload WHITLEY on CKD stage 3 [facility] Ne[facility]rology following for volume management PHOEBE NIV/PAP therapy DM type 2 Endocrinology following SSI coverage NSTEMI Troponin trending down Echo normal with mild Macrocytic anemia Thrombocytopenia Daily CBC B12 and folic acid Hx of Afib Metoprolol, eliquis Hx of neurogenic bladder with chronic jose Morbid obesity Dementia/alzheimer's Zoloft and donepezil Hx of HTN Lisinopril on hold Chronic back and leg pain Home pain medications resumed Medical Decision Making 08/08/23: patient admitted to ICU with septic shock found to have ESBL bacteremia in setting of UTI and chronic jose. Sepsis resolved, patient on broad spectrum IV abx through 08/15 with PICC placed on 08/06/23. Urology following for right ureteral calculus s/p stent placement on 07/30, follow up with urology outpatient in 08/21. Patient transferred out of ICU on 08/07/23. Patient with WHITLEY and volume overload, followed by nephrology, renal function stable. Patient followed by endocrinology for DM management. PT/OT eval and treat. CBC and BMP in the AM. -am labs, replace lytes prn -increase activity -resume home medications as indicated -DVT prophylaxis: [] Lovenox [] Heparin [] SCDs [x] Encourage ambulation [x] Already on Anticoagulation Anticipated Discharge - Date - 08/10/23 - Location - Skilled Facility - Pending the following - improvement in sepsis Toxic drug monitoring/narrow therapeutic index drug monitoring : # Drug name : # Route administered : # Method of monitoring : Extended Emergency Contact Information Primary Emergency Contact: CieraDeidra Address[address] [address] Mobile Relation: Daughter Secondary Emergency Contact: AdelaidaeJsus millan Mobile Relation: Spouse Preferred language: [place] 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 No Paige Rivera DO Division of Hospitalist Medicine Inpatient Medical Services/[facility] PAGER: Epic chat Department of Internal Medicine Division of Endocrinology, Diabetes, & Metabolism Endocrinology Note Patient Name: Salazar Coyle : 1950 AGE: 72 y.o. Room/Bed: [facility] A Admission Date: 07/30/2023 Visit Date: 08/08/2023 Reason for Endocrine Consult: Hyperglycemia requiring insulin GGT, on steroids and tube feeds Provider/Team Requesting Consult: Dr. Del Real PCP: Paige Rivera DO Outpt Desktop Support Associate: Yes Dr. Woods ASSESSMENT: Type II Diabetes with hyperglycemia Urosepsis versus pyelonephritis Severe sepsis History of ESBL bacteremia requiring long dose meropenem History left UPJ calculus Chronic Jose with neurogenic bladder Leukocytosis Metabolic acidosis Lactic acidosis NAGMA CKD stage IIIb WHITLEY Hypertension Hyperlipidemia PHOEBE Noncompliance to CPAP Chronic lower extremity wounds Chronic venous stasis PLAN: Continue to Lantus 36 units nightly Continue Humalog 5 units TID with meals Continue humalog low dose sliding scale TID with meals on carb diet, fluid restriction ICU goal <180 GMF goal <150 POCT BG ACHS Hypoglycemia management per protocol Carb controlled diet ANTICIPATED ENDOCRINE HOME GOING RECOMMENDATIONS: Optimized for Discharge from Endocrine standpoint: No Home Going Endocrine Rx Recommendations-- Lantus -dose to be determined Humalog -dose to be determined Outpt Follow Up-- Clinical clinic endocrinology SUBJECTIVE/HPI: CHIEF COMPLAINT: Chief Complaint Patient presents with Altered Mental Status 72 YO female w/PMH dementia, T2DM, morbid obesity, PHOEBE, chronic Jose 2/2 neurogenic bladder, Anxiety and chronic pain. OF note, patient admitted May 2022 w/ ESBL E. Coli bacteremia with left UPJ calculus s/p stent and extended IV meropenem. Patient did require laser lithotripsy and stent exchange at this time. Patient arrived to [facility] ED for altered mental status. Cystoscopy, left ureteral stent placement completed 07/31/2023 Type of DM: 2 Onset of DM: Home DM Medication Regimen: Lantus 10 units nightly Humalog 3 units 3 times daily before meals DM control (last A1c/glucose data): Lab Results Component Value Date HGBA1C 9.0 (H) 07/30/2023 Today- Tolerating diet Appetite is decreased. Blood sugars reviewed and listed below Patient alert but confused Fluid restriction Creat: 1.16, GFR: 49.6 Glucose Date/Time Value Ref Range Status 08/08/2023 12:47 PM 129 (H) 70 - 100 mg/dL Final 08/08/2023 07:40 AM 147 (H) 70 - 100 mg/dL Final 08/07/2023 09:34 PM 188 (H) 70 - 100 mg/dL Final 08/07/2023 05:45 PM 148 (H) 70 - 100 mg/dL Final 08/07/2023 11:49 AM 169 (H) 70 - 100 mg/dL Final 08/07/2023 09:00 AM 91 70 - 100 mg/dL Final Review of Systems Constitutional: Positive for appetite change and fatigue. Respiratory: Negative for shortness of breath. Cardiovascular: Positive for leg swelling. Negative for chest pain and palpitations. Gastrointestinal: Negative for abdominal pain. Endocrine: Negative for polydipsia, polyphagia and polyuria. Skin: Positive for wound. Neurological: Positive for weakness. ROS negative except for those mentioned in HPI. OBJECTIVE: Vitals: 08/08/23 0803 08/08/23 0903 08/08/23 1003 08/08/23 1103 BP: 110/58 BP Location: Patient Position: Pulse: 85 90 83 62 Resp: 13 15 14 12 Temp: TempSrc: SpO2: 93% 99% 98% Weight: Height: Physical Exam Vitals and nursing note reviewed. Constitutional: General: She is not in acute distress. Appearance: She is obese. She is ill-appearing. She is not toxic-appearing or diaphoretic. HENT: Head: Normocephalic. Nose: Nose normal. Mouth/Throat: Mouth: Mucous membranes are moist. Eyes: Conjunctiva/sclera: Conjunctivae normal. Cardiovascular: Rate and Rhythm: Normal rate and regular rhythm. Pulses: Normal pulses. Heart sounds: Normal heart sounds. No murmur heard. Pulmonary: Effort: Pulmonary effort is normal. No respiratory distress. Breath sounds: Normal breath sounds. Musculoskeletal: General: Swelling present. Right lower leg: Edema present. Left lower leg: Edema present. Skin: General: Skin is warm and dry. Neurological: Mental Status: She is alert. Psychiatric: Mood and Affect: Mood normal. Behavior: Behavior normal. 24 hour intake/output: Intake/Output Summary (Last 24 hours) at 08/08/2023 1346 Last data filed at 08/08/2023 1328 Gross per 24 hour Intake 1781 ml Output 1645 ml Net 136 ml Diet: Adult diet Regular; No Added Salt (3-4 gm); 4 carb choices (60 gm/meal) Medications (as per EMR): HomeMeds: Current Outpatient Medications Medication Instructions acetaminophen (TYLENOL) 325 mg, Oral, 3 times daily apixaban (ELIQUIS) 5 mg, Oral, 2 times daily ascorbic acid (VITAMIN C) 250 mg, Oral, Daily atorvastatin (LIPITOR) 20 mg, Oral, Daily baclofen (Lioresal) 5 MG tablet 1 tablet, Oral, 3 times daily Calcium Carbonate-Vitamin D (Oyster Shell Calcium/D) 500-5 MG-MCG tablet 1 tablet, Oral, Daily Diclofenac Sodium (VOLTAREN) 4 g, Topical, 2 times daily donepezil (ARICEPT) 10 mg, Oral, Nightly furosemide (LASIX) 40 mg, Oral, 2 time daily gabapentin (NEURONTIN) 200 mg, Oral, 3 times daily insulin glargine (LANTUS) 10 Units, SubCUTAneous, Nightly Insulin Lispro (HUMALOG) 3 Units, SubCUTAneous, 3 times daily with meals lisinopril 10 mg, Oral, Daily MEROPENEM IV 2 g, IntraVENous, Every 8 hours nystatin (Mycostatin) [id number] UNIT/GM powder No dose, route, or frequency recorded. senna-docusate (Helena-Colace) 8.6-50 MG tablet 100 tablets, Oral, Every 24 hours sertraline (ZOLOFT) 50 mg, Oral, Daily Scheduled Meds:ammonium lactate, , Topical, BID apixaban, 5 mg, Oral, BID [Held by provider] ascorbic acid, 250 mg, Oral, Daily atorvastatin, 20 mg, Oral, Nightly [Held by provider] baclofen, 5 mg, Oral, TID bisacodyl, 10 mg, Rectal, BID bumetanide, 1 mg, Oral, BID cyanocobalamin, 1,000 mcg, Oral, Daily Diclofenac Sodium, 4 g, Topical, BID donepezil, 10 mg, Oral, Nightly famotidine (Pepcid) 20 mg in sodium chloride (PF) 0.9 % 10 mL injection, 20 mg, IntraVENous, BID folic acid, 1 mg, Oral, Daily gabapentin, 300 mg, Oral, TID insulin glargine, 36 Units, SubCUTAneous, Nightly insulin lispro, 0-6 Units, SubCUTAneous, TID WC insulin lispro, 5 Units, SubCUTAneous, TID WC ipratropium-albuterol, 3 mL, Nebulization, TID [Held by provider] lisinopril, 10 mg, Oral, Daily meropenem, 2,000 mg, IntraVENous, q8h miconazole, , Topical, BID nystatin, , Topical, BID Petrolatum, , Topical, BID senna-docusate sodium, 2 tablet, Oral, BID sertraline, 50 mg, Oral, Daily sodium chloride 0.9%, 10 mL, IntraVENous, 2 times per day sodium chloride 0.9%, 10 mL, IntraCATHeter, q12h sodium chloride, 4 mL, Nebulization, BID stomahesive in petrolatum, , Topical, q8h Continuous Infusions: PRN Meds:PRN medications: [Held by provider] acetaminophen OR [Held by provider] acetaminophen, dextrose, dextrose, glucagon (rDNA), glucose, heparin flush, labetalol, LORazepam, naloxone, ondansetron ODT OR ondansetron, oxyCODONE, polyethylene glycol (PEG) 3350, sodium chloride 0.9%, sodium chloride 0.9% Diagnostic Workup: I reviewed pertinent Laboratory results, Radiographic results, and Other Clinical Notes at the time of today's encounter. Labs: No components found for: "LABA1C" No components found for: "EAG" Lab Results Component Value Date NA 144 08/08/2023 K 3.8 08/08/2023 CL 103 08/08/2023 CO2 35 (H) 08/08/2023 BUN 68 (H) 08/08/2023 CREATININE 1.16 (H) 08/08/2023 GLUCOSE 161 (H) 08/08/2023 CALCIUM 9.2 08/08/2023 No results found for: "CHLPL", CHOL No results found for: "TRIG" No results found for: "HDL" No results found for: "LDLCALC" No results found for: "VLDL" No results found for: "CHOLHDLRATIO" No results found for: "VOVW15CGQ" No results found for: "TSH", "N2AODNW", "G9PDNYH", "THYROIDAB" Radiology reportsas per the Radiologist Radiology: POCT glucose meter Result Date: 07/31/2023 Performed by: Bentley Mora, [address] [place] [id number] CLIA ID: [id number] POCT glucose meter Result Date: 07/31/2023 Performed by: Bentley Mora, [address] [place] [id number] CLIA ID: [id number] POCT glucose meter Result Date: 07/31/2023 Performed by: Bentley Mora, [address] [place] [address], [place] [address] CLIA ID: [id number] POCT glucose meter Result Date: 07/31/2023 Performed by: [facility], [address] [place] [address], [place] [address] CLIA ID: [id number] POCT glucose meter Result Date: 07/31/2023 Performed by: [facility], [address] [place] [address], [place] [address] CLIA ID: [id number] POCT glucose meter Result Date: 07/31/2023 Performed by: [facility], [address] [place] [address], [place] [address] CLIA ID: [id number] POCT glucose meter Result Date: 07/31/2023 Performed by: [facility], [address] [place] [address], [place] [address] CLIA ID: [id number] POCT glucose meter Result Date: 07/31/2023 Performed by: [facility], [address] [place] [address], [place] [address] CLIA ID: [id number] POCT glucose meter Result Date: 07/31/2023 Performed by: [facility], [address] [place] [address], [place] [address] CLIA ID: [id number] POCT glucose meter Result Date: 07/31/2023 Performed by: [facility], [address] [place] [address], [place] [address] CLIA ID: [id number] POCT glucose meter Result Date: 07/31/2023 Performed by: [facility], [address] [place] [address], [place] [address] CLIA ID: [id number] POCT glucose meter Result Date: 07/31/2023 Performed by: [facility], [address] [place] [address], [place] [address] CLIA ID: [id number] POCT glucose meter Result Date: 07/31/2023 Performed by: [facility], [address] [place] [address], [place] [address] CLIA ID: [id number] Transthoracic echocardiogram (TTE) complete with contrast, bubble, strain, and 3D PRN Result Date: 07/31/2023 Left Ventricle: Left ventricle size is normal. Mildly increased wall thickness. Normal left ventricular systolic function. EF by 2D Simpsons Biplane is 63%. Normal wall motion. Right Ventricle: Right ventricle size is normal. Normal systolic function. Aortic Valve: Trileaflet. No cusp thickening. Mildly calcified cusps. Mild annular calcification. No regurgitation. Valve appears to open well velocities suggest Mild stenosis of the aortic valve. AV mean gradient is 9 mmHg. AV area by continuity VTI is 2.3 cm2. Left Atrium: Left atrium is dilated. POCT glucose meter Result Date: 07/31/2023 Performed by: [facility], [address] [place] [id number] CLIA ID: [id number] POCT glucose meter Result Date: 07/31/2023 Performed by: [facility], [address] [place] [address] CLIA ID: [id number] POCT glucose meter Result Date: 07/31/2023 Performed by: [facility], [address] [place] [address] CLIA ID: [id number] POCT glucose meter Result Date: 07/31/2023 Performed by: [facility], [address] [place] [address] CLIA ID: [id number] FL GUIDANCE OR USE ONLY - NON RESULTABLE Result Date: 07/31/2023 There is no interpretation needed for this exam. ECG 12 lead Sinus tachycardia IVCD, consider LBBB Electronically Signed On 07-31-2023 06:14:25 EDT by Emilie Nicole POCT glucose meter Result Date: 07/31/2023 Performed by: [facility], [address] [place] [address] CLIA ID: [id number] XR chest 1 view Result Date: 07/31/2023 [facility] : 1950 [id number] Exam Date/Time: 07/31/2023 04:56 Procedure: XR CHEST 1 VIEW Ordering Provider: DEL REAL CHELSEA Reason For Exam: verify ETT placement EXAMINATION: XR chest AP. EXAM DATE & TIME: 07/31/2023 4:56 AM EDT INDICATION: verify ETT placement ADDITIONAL INFORMATION: 72-year-old female presents for follow-up after intubation COMPARISON: Chest x-ray dated 07/31/2023 TECHNIQUE: Frontal view of the chest was obtained. FINDINGS: Lines/support devices: An endotracheal tube is present with its distal tip approximately 1.9 cm above the candy. Unchanged right internal jugular approach central venous catheter, terminating in the region of the cavoatrial junction. An NG/OG tube is present with its distal tip coursing subdiaphragmatically and beyond the [id number]-vq-mddr. Cardiac leads project over the chest, somewhat limiting evaluation. Cardiomediastinal silhouette: The heart is slightly enlarged. Lungs/pleura: A small left pleural effusion is seen. Right pleural spaces are clear. No evidence of pneumothorax. Osseous structures: Degenerative changes of the spine and shoulders are seen. No acute osseous abnormality is demonstrated. Other findings: None. 1. Small left pleural effusion. Underlying consolidation is not excluded. 2. Lines and support devices as above. Report Dictated on Electronically Signed By: Catarino Sue MD Electronically Signed Date/Time: 07/31/2023 5:05 AM EDT POCT glucose meter Result Date: 07/31/2023 Performed by: [facility], [address] [place] [address] CLIA ID: [id number] POCT glucose meter Result Date: 07/31/2023 Performed by: [facility], [address] [place] [address] CLIA ID: [id number] XR chest 1 view Result Date: 07/31/2023 Patient Name: [facility]AZAR COYLE : 1950 [id number] Exam Date/Time: 07/31/2023 01:43 Procedure: XR CHEST 1 VIEW Ordering Provider: DEL REAL CHELSEA Reason For Exam: PROCEDURES PORTABLE CHEST CLINICAL INDICATION: PROCEDURES TECHNIQUE: Portable AP COMPARISON: 07/30/2023 FINDINGS: Right IJ central line tip projects over the SVC. No focal consolidation or pulmonary edema. No pleural effusions or pneumothorax. The heart demonstrates normal size. Calcification of the thoracic aorta is noted. Degenerative change of the thoracic spine is noted. No focal consolidation or pulmonary edema. Report Dictated on Electronically Signed By: Bashir Barnes MD Electronically Signed Date/Time: 07/31/2023 2:[address] abdomen pelvis wo IV contrast Result Date: 07/31/2023 Patient Name: [facility]AZAR COYLE : 1950 [id number] Exam Date/Time: 07/31/2023 00:27 Procedure: CT ABDOMEN PELVIS WO IV CONTRAST Ordering Provider: CALDERÓN SHANNON Reason For Exam: UTI, recurrent/complicated (Female) EXAMINATION: CT of the abdomen and pelvis without contrast. EXAM DATE & TIME: 07/31/2023 12:27 AM EDT INDICATION: UTI, recurrent/complicated (Female) ADDITIONAL INFORMATION: 72-year-old female with a provided history of UTI presents for evaluation COMPARISON: CT abdomen pelvis dated 06/10/2022 LIMITATIONS: Evaluation of the vasculature as well as the solid and hollow viscera is limited due to the lack of intravenous and oral contrast. Additional limitations are present secondary to portions of the patient outside the hessq-ur-ptqf and associated beam hardening artifact. TECHNIQUE: Contiguous multiplanar 3 mm images were obtained from the levels of the lung bases through the pelvis without contrast. Images were reformatted in coronal and sagittal projections using the raw CT data and were interpreted in conjunction with the axial images to render the findings listed below. Dose reduction was employed with automated exposure control. FINDINGS: Included images of the lower thorax: There is bibasilar scarring/atelectasis. No focal lung consolidation or pleural effusion. Stable 3 mm right lower lobe pulmonary nodule (series 4, image 7). Previously identified 1.3 cm nodule is not included on the current examination. Hepatobiliary: Unremarkable liver without biliary dilation evident. Cholelithiasis is seen. Spleen: Unremarkable. Pancreas: There is fatty atrophy of the pancreas. Adrenal glands: Unremarkable. Kidneys, ureters and bladder: There is an 8 mm left UPJ calculus with mild to moderate upstream hydronephrosis (HU = 327). Additional coarse, nonobstructing left renal calculi are noted. No evidence of right-sided hydronephrosis or nephrolithiasis. A Jose catheter is present within the urinary bladder, decompressing it and limiting evaluation. Abdominal and pelvic vasculature: Atherosclerotic vascular calcifications are present in the abdominal aorta and its proximal major branches. Gastrointestinal: No evidence of obstruction. No pericecal inflammation to suggest acute appendicitis. Peritoneum, retroperitoneum and mesentery: No free fluid or free air. Inflammatory changes surround the left kidney. Lymph nodes: No abdominal or pelvic lymphadenopathy is evident. Solid pelvic viscera: The uterus appears surgically absent. Visualized musculoskeletal structures: No acute fracture or destructive osseous lesion is identified. Multilevel spondylosis is present. The bones are diffusely osteopenic. 1. Study limited as above. Allowing for this, there is a left UPJ calculus with mild to moderate upstream hydronephrosis. 2. Stable 3 mm right lower lobe pulmonary nodule. Recommendations for follow-up as below. Previously noted 1.3 cm pulmonary nodule is not included on the current examination. 3. Additional chronic findings as above. Updated Fleischner Society Guidelines for Management of Small Pulmonary Nodules Detected on CT (2017) SOLITARY NODULE: LOW RISK PATIENT < 6 mm - No follow-up 6 - 8 mm - 6 - 12 month follow-up, then consider 18 - 24 months > 8 mm - PET/CT, biopsy, or 3 month follow-up SOLITARY NODULE: HIGH RISK PATIENT < 6 mm - Optional 6 - 12 months follow-up (suspicious morphology or upper lobe) 6 - 8 mm - 6 - 12 month follow-up, then 18 - 24 months > 8 mm - PET/CT, biopsy, or 3 month follow-up MULTIPLE NODULES: LOW RISK PATIENT (Use most suspicious) All < 6 mm - No follow-up Any > 6 mm - 3 - 6 month follow-up, then 18 - 24 months MULTIPLE NODULES: HIGH RISK PATIENT (Use most suspicious) All < 6 mm - No follow-up Any > 6 mm - 3 - 6 month follow-up, then 18 - 24 months Report Dictated on Electronically Signed By: Catarino Sue MD Electronically Signed Date/Time: 07/31/2023 2:35 AM EDT POCT glucose meter Result Date: 07/31/2023 Performed by: [facility], [address] [place] [address] CLIA ID: [id number] ECG 12 lead Sinus or ectopic atrial rhythm Left bundle branch block Consider anterolateral infarct Compared to ECG 03/13/2021 22:47:47 Ectopic atrial rhythm now present Left bundle-branch block now present Sinus rhythm no longer present Intraventricular conduction delay no longer present T-wave abnormality no longer present Myocardial infarct finding still present Electronically Signed On 07-31-2023 02:00:48 EDT by Paige Flores POCT glucose meter Result Date: 07/31/2023 Performed by: [facility], [address] [place] [address] CLIA ID: [id number] POCT glucose meter Result Date: 07/31/2023 Performed by: [facility], [address] [place] [address] CLIA ID: [id number] POCT glucose meter Result Date: 07/31/2023 Performed by: [facility], [address] [place] [address] CLIA ID: [id number] POCT arterial blood gas Result Date: 07/31/2023 Performed by: [facility], [address] [place] [address] CLIA ID: [id number] POCT glucose meter Result Date: 07/30/2023 Performed by: [facility], [address] [place] [address] CLIA ID: [id number] POCT glucose meter Result Date: 07/30/2023 Performed by: [facility], [address] [place] [address] CLIA ID: [id number] POCT venous blood gas Result Date: 07/30/2023 Performed by: [facility], [address] [place] [address] CLIA ID: [id number] POCT glucose meter Result Date: 07/30/2023 Performed by: [facility], [address] [place] [address] CLIA ID: [id number] CT head wo IV contrast Result Date: 07/30/2023 Patient Name: SALAZAR COYLE : 1950 Exam Date/Time: 07/30/2023 14:19 Procedure: CT HEAD WO IV CONTRAST Ordering Provider: LEMON JAY Reason For Exam: Mental status change, unknown cause Indication: Mental status change Comparison date: 06/09/2022 FINDINGS: Dose reduction was employed with automated exposure control.3 mm unenhanced imaging of the brain performed. Images viewed in multiple orthogonal planes. Acute findings: No convincing acute ischemia or infarct, mass effect or midline shift, or hemorrhage. Bony structures:Unremarkable as seen. Orbits within normal limits, limited lack of contrast. Review of the paranasal sinuses shows stable right maxillary fluid-filled partially calcified structure etiology uncertain.. No acute brain process identified. Report Dictated on Electronically Signed By: Carlos Martinez MD Electronically Signed Date/Time: 07/30/2023 2:51 PM EDT XR chest 1 view Result Date: 07/30/2023 Patient Name: [facility]AZAR COYLE : 1950 [id number] Exam Date/Time: 07/30/2023 14:01 Procedure: XR CHEST 1 VIEW Ordering Provider: LEMON JAY Reason For Exam: ALTERED MENTAL STATUS EXAM TYPE: RADIOLOGIC EXAMINATION, CHEST, SINGLE VIEW FRONTAL (CXR SINGLE VIEW) EXAM DATE AND TIME: 07/30/2023 2:01 PM EDT INDICATION: Altered mental status COMPARISON: 06/10/2022 TECHNIQUE: A single frontal view of the thorax was obtained and reviewed. Special views: None. 1. Lines/Tubes/Devices/Hardware: Leads noted. Please confirm position and function of any catheters or attempted catheters clinically. 2. Lungs: No convincing acute process.. Limited due to portable technique. Consider follow-up with PA and lateral chest for persistent symptoms. 3. Pleura: No significant effusion. No significant pneumothorax. 4. Heart and mediastinum: Limited due to technique. 5. Upper abdomen: No acute process seen. 6. Thorax:No acute bony process Report Dictated on Electronically Signed By: Carlos Martinez MD Electronically Signed Date/Time: 07/30/2023 2:03 PM EDT POCT venous blood gas Result Date: 07/30/2023 Performed by: [facility], [address] [place], [place] [id number] CLIA ID: [id number] POCT glucose meter Result Date: 07/30/2023 Performed by: [facility], [address] [facility] [address] CLIA ID: [id number] History/Other: Past Medical History: Past Medical History: Diagnosis Date A-fib (CMS/HCC) (HCC) Anemia Diabetes (HCC) Lymphedema Obesity Past Surgical History: History reviewed. No pertinent surgical history. Allergy(ies): Allergies Allergen Reactions Ertapenem Patient tolerated July 2022 Tolerated meropenem August 2023 Family History: No family history on file. Social History: Social History Tobacco Use Smoking status: Never Smokeless tobacco: Never Vaping Use Vaping Use: Never used Substance Use Topics Alcohol use: Never Drug use: Never I spent total time 35 minutes reviewing previous notes, test results, and face to face with the patient discussing the diagnosis and importance of compliance with the treatment plan as well as documenting on the day of the visit. Electronically signed by ZINA Barrett CNP 08/08/2023 1:46 PM Portions of the information within this encounter were entered using an electronic dictation system. Best attempts were made to edit/proofread the information prior to note completion. Despite the review of information, some errors may remain. If there are questions related to the information contained within the note please contact the signing physician directly. [facility] Nephrology Progress Note Subjective/ 72 y.o. year old female who we are seeing in consultation for volume management. Extubated 08/04 NAEON Alert x1 at baseline Urine output good BP stable Lasix gtt dc'd 08/05 Appetite + ROS otherwise negative. No change in PFSH. Objective/ Vitals: 08/08/23 0803 08/08/23 0903 08/08/23 1003 08/08/23 1103 BP: 110/58 BP Location: Patient Position: Pulse: 85 90 83 62 Resp: 13 15 14 12 Temp: TempSrc: SpO2: 93% 99% 98% Weight: Height: 24HR INTAKE/OUTPUT: Intake/Output Summary (Last 24 hours) at 08/08/2023 1146 Last data filed at 08/08/2023 0907 Gross per 24 hour Intake 1731 ml Output 1570 ml Net 161 ml Constitutional: ill appearing, NAD, alert x1, obese Head: AT NC Neck: No JVD, no thyromegaly Cardiovascular: S1, S2 without m/r/g Respiratory: diminished throughout Abdomen: soft, nt Ext: 1+ B/L pitting LE edema, no tremor. Skin: BLE redness/ulcerations ammonium lactate, , Topical, BID apixaban, 5 mg, Oral, BID [Held by provider] ascorbic acid, 250 mg, Oral, Daily atorvastatin, 20 mg, Oral, Nightly [Held by provider] baclofen, 5 mg, Oral, TID bisacodyl, 10 mg, Rectal, BID bumetanide, 1 mg, Oral, BID cyanocobalamin, 1,000 mcg, Oral, Daily Diclofenac Sodium, 4 g, Topical, BID donepezil, 10 mg, Oral, Nightly famotidine (Pepcid) 20 mg in sodium chloride (PF) 0.9 % 10 mL injection, 20 mg, IntraVENous, BID folic acid, 1 mg, Oral, Daily gabapentin, 300 mg, Oral, TID insulin glargine, 36 Units, SubCUTAneous, Nightly insulin lispro, 0-6 Units, SubCUTAneous, TID WC insulin lispro, 5 Units, SubCUTAneous, TID WC ipratropium-albuterol, 3 mL, Nebulization, TID [Held by provider] lisinopril, 10 mg, Oral, Daily meropenem, 2,000 mg, IntraVENous, q8h miconazole, , Topical, BID nystatin, , Topical, BID Petrolatum, , Topical, BID senna-docusate sodium, 2 tablet, Oral, BID sertraline, 50 mg, Oral, Daily sodium chloride 0.9%, 10 mL, IntraVENous, 2 times per day sodium chloride 0.9%, 10 mL, IntraCATHeter, q12h sodium chloride, 4 mL, Nebulization, BID stomahesive in petrolatum, , Topical, q8h PRN medications: [Held by provider] acetaminophen OR [Held by provider] acetaminophen, dextrose, dextrose, glucagon (rDNA), glucose, heparin flush, labetalol, LORazepam, naloxone, ondansetron ODT OR ondansetron, oxyCODONE, polyethylene glycol (PEG) 3350, sodium chloride 0.9%, sodium chloride 0.9% Data/ Recent Labs 08/06/23 1224 08/07/23 0313 08/08/23 0322 WBC 8.5 7.0 6.7 HGB 8.2* 8.6* 8.9* HCT 26.4* 27.9* 29.2* MCV 107.8* 109.4* 109.0* PLT 176 205 240 Recent Labs 08/05/23 1505 08/06/23 0425 08/06/23 1651 08/07/23 0313 08/08/23 0322 NA 141 145 144 144 144 K 4.2 3.9 3.8 3.7 3.8 CL 102 104 101 101 103 CO2 30 33* 31* 33* 35* GLUCOSE 207* 136* 149* 127* 161* PHOS 3.5 3.7 -- -- -- MG 2.0 2.2 -- -- -- BUN 72* 71* 71* 70* 68* CREATININE 1.09* 1.11* 1.09* 1.11* 1.16* Assessment/ CKD3b (N18.32) Volume overload (E87.70) Acute hypoxic respiratory failure (J96.01) Septic shock, resolved (R65.21) UTI DMT2 Anemia Plan/ Renal function continues to tolerate diuresis Now with some hypotension Keep SBP > 100 for adequate renal perfusion Agree with ICU plan for po bumex BID for chronic diuresis No need for FR at this time as is near hypernatremic Lytes overall stable Trend K in setting of loop diuresis, stable at this time UOP excellent, chronic jose+ Noted now is floor status D/w RN and Dr Garner ICU Will follow Thank you for the consult and the opportunity to participate in the care of this patient. Please do not hesitate to call with any questions or concerns. Ana Frost APRN, MANAGER PRESENTATION [facility], [facility] [phone] office Associated attestation - Sarita Wray MD - 08/08/2023 3:56 PM EDT I have reviewed the above assessment and plan with the HAND I THERMAL CUTTER. I agree with above note. Renal function tolerating diuresis. Pt sitting on stool in room. Working with cell phone Images from the original note were not included. Speech-Language Pathology SPEECH LANGUAGE PATHOLOGY [facility] Dysphagia Treatment Note Patient Name: Salazar Coyle Evaluation Date: 08/08/2023 Date of : 1950 Admission Date: 07/30/2023 1:00 PM Age: 72 y.o. Room/Bed: / A Subjective Patient alert and cooperative, with encouragement. Seen semi-upright in bed, with gradual increments to raise head of bed. . Answers some basic questions with clear vocal quality. Follows all basic commands. Visitors at bedside - RN. Spoke with MATHEUS Nguyen who cleared pt for treatment. Current Diet: Dietary Orders (From admission, onward) Start Ordered 08/06/23 1303 Adult diet Regular; No Added Salt (3-4 gm); 4 carb choices (60 gm/meal); 1800 ml Diet effective now Comments: Double proteins Question Answer Comment Diet type Regular Sodium restriction: No Added Salt (3-4 gm) Carbohydrate restriction: 4 carb choices (60 gm/meal) Dietary fluid restriction / 24h: 1800 ml 08/06/23 1303 Aspiration Precautions: - as Upright positioning for all PO intake - single bites Oxygen: Oxygen Therapy: Supplemental oxygen O2 Delivery Method: Nasal cannula O2 Flow Rate (L/min): 2 L/min Pt with complaints only when raising head of bed. Unable to localize pain. Just does not like an movement. Pain: RN managing pain. Came to provide medications for pain prior to moving pt PPE Worn: surgical mask, gloves Objective & Assessment Dysphagia Treatment Dysphagia Activity 1: Assess tolerance of recommended diet. Pt with functional tolerance of po. RN has been assisting with feeds to increase safety/ Rate of intake. Unable to position pt in most upright siting d/t self limiting and asking you not to raise bed further. "Put it down" provided education and raised bed in slow increment to get to more upright yet reclined position. Plan & Recommendations Plan: Staff to continue with set up of meals. Assist as needed. Position as most upright as tolerated. Recommend Regular solids and Thin liquids and meds as tolerated and the following precautions: - Upright positioning for all PO intake - single bites/sips -When fully alert NO FURTHER ST--Goals met as written. Discussed with Palliative Care and RN. D/C Recommendations: 24 hour supervision/assistance Education Education Given: swallowing strategies, diet recommendations, strategies include more upright-do not lay flat. Given To: patient Response: needs reinforcement Goals Patient Stated Goal: To get a drink. 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 Palliative Care Progress Note Chief Complaint: Salazar Coyle is a 72 y.o. female with chief complaint of encephalopathy. Palliative Care is actively following. Assessment/Plan Encephalopathy - underlying dementia - septic shock 2/2 UTI, L hydronephrosis post cystoscopy with ureteral stent 07/31/23 Septic shock - ID following - per ICU: meropenem, prior norepinephrine gtt stopped 08/01/23, intermittent albumin Acute respiratory failure with hypoxia - intubated 07/30/23--successfully extubated, actually on room air without concerns - room air - per ICU: duonebs, hypertonic saline nebs HFpEF - per ICU bumex Debility - bed-bound at baseline Chronic pain - seen by palliative at facility - per ICU: gabapentin 300mg three times per day, may increase in upcoming days - she denies pain but once touched starts to yell to stop - continue prn oxycodone - will call dtlayssa Gay today to discuss scheduling oxycodone q6h may hold for oversedation - she is okay with scheduling oxycodone q6h with continued PRN availability, open discussion regarding in upcoming days to adjust gabapentin, education with how helpful, agrees, is hopeful that once back at facility they will keep scheduled medications as well. - asks about tests for her back pain, discussed my concern putting her through tests such as MRI 1-might cause more pain but 2-once we have results I fear will not change how we treat her as if surgery is indicated she is a poor surgical candidate, dtr agrees, discussed rather not putting her through things Anxiety/depression - per ICU scheduled sertraline, gabapentin will also help with anxiety - continue prn lorazepam, monitor needs Palliative Care Encounter -full code - primary HCP[place] in [facility] [place] - dtr is Deidra, started discussion of code status as this was rather big hospitlization, discussed setting a boundary for mom, still return to hospital as IV abx was helpful, however if despite treatments is heart stops or breathing stops my fear to perform chest compressions, defibrillation, intubation and life support would not change dementia or QOL at end of the day but make it worse, encouraged to talk with family regarding this, assures me she will - I also reviewed her LW in [facility], would not want long-term vent supports - will continue to follow for ongoing monitoring of progression of Pain - will continue to evaluate test results related to UTI/bacteremia , medication effectiveness for Pain, response to treatment of UTI/bacteremia - will continue treatment including none at this time, sill need to follow for oxycodone Total of 50 minutes spent on this encounter including Chart review, Patient visit and exam, Documentation in EHR, Care coordination, Communicating with primary attending or other consultants, and Counseling and educating patient/family/caregiver. Discharge planning: Not ready for discharge due to medical instability Patient meets criteria for general inpatient hospice care including the following: N/A - Palliative Care Patient Referrals to: None Discussed patient and the plan of care with the other interdisciplinary team (IDT) members of Palliative Care Team, and with Primary Attending, Patient, and Floor Nurse Insert attestation statement here if applicable (.disupervision) or (.npattest) Subjective: Subjective/Events Since last seen: no longer requiring ICU level of care, awake in bed in NAD, without pain--again once touched was in obvious distress and asking to stop touching her, CP, abdominal pain, breathing easy, no nausea, vomiting, eating 100% meals, last BM 08/07/23 Salazar Coyle is a 72 y.o. female living at [facility] for 24 hour care and supervision, has been resident there since 2021. PMHx includes, CVA, TIA, primarily bed bound at baseline, dementia, Afib, DM, PHOEBE, chronic jose due to neurogenic bladder, anxiety, depression, chronic pain. [facility] [place], [place] for encephalopathy had been given AM pills without difficulty however upon return to room she was unresponsive. Admitted to ICU, required emergent cystoscopy with L ureteral stent placement for L hydronephrosis, intubated 07/31/23, returned to ICU for care. Given multiple medical concerns, palliative care consulted for goals of care Goals of care:Continue Current Management Functional Assessment: PPS: 30% Advance Directives: Full Code Surrogate: HCPOA Prognosis: unknown Spiritual assessment: No spiritual distress identified Bereavement and grief: Grief Issues Not Identified Review of Systems ROS: See palliative care ROS/ESAS below; All other systems were reviewed and are negative. Monroe Symptom Assessment Score Monroe Score Pain Score 0 Tiredness Score 0 Nausea Score 0 Depression Score 0 Anxiety Score 0 Drowsiness Score 0 Anorexia Score (0= eating well, 10= not eating) 0 Wellbeing Score (10= worst sense of well-being) 0 Constipation 0 Dyspnea Score (0= no shortness of breath) 0 FLACC Scale (For Pain Assessment of the Non-Verbal Patient) Patient is verbal Assessed by: patient and provider. Social history: [place] status: no Marital status: Living status: fpc Work history: not empolyed Family Meeting: (if discussing Advanced Care Planning, include .PALLACP) Participants: child Family meeting was held to discuss:Goals of Care and Symptom Management Objective: Physical Exam BP 114/75 (BP Location: Left arm, Patient Position: Lying) Pulse 75 Temp 36.9 C (98.4 F) (Oral) Resp (!) 10 Ht 5' 5" (1.651 m) Wt (!) 350 lb (159 kg) SpO2 98% BMI 58.24 kg/m Physical Exam Vitals and nursing note reviewed. Constitutional: Appearance: She is obese. She is ill-appearing. HENT: Head: Normocephalic and atraumatic. Mouth/Throat: Mouth: Mucous membranes are moist. Eyes: General: Right eye: No discharge. Left eye: No discharge. Cardiovascular: Rate and Rhythm: Normal rate and regular rhythm. Pulses: Normal pulses. Heart sounds: Normal heart sounds. No murmur heard. Comments: Generalized edema B post tib/dorsalis pedis palpable R foot with 4-5 toe amputation Pulmonary: Effort: Pulmonary effort is normal. Breath sounds: Normal breath sounds. Abdominal: General: Bowel sounds are normal. There is no distension. Palpations: Abdomen is soft. There is no mass. Musculoskeletal: General: Deformity (R foot) present. Right lower leg: Edema present. Left lower leg: Edema present. Skin: General: Skin is warm and dry. Neurological: Mental Status: She is disoriented. Psychiatric: Mood and Affect: Mood normal. Behavior: Behavior normal. Current Medications: Inpatient medications reviewed: yes Home medications reviewed: yes OARRS Reviewed: Yes-no reportable medications despite ECF on gabapentin, lorazepam and oxycodone 24 Hour PRN Meds: oxycodone times 4, lorazepam times 3 Results/Verification of Data Review Objective data reviewed (be specific which labs, imaging reports with dates reviewed): MAR/vitals/labs reviewed 08/08/23 Data in Support of Terminal Illness: Is patient hospice appropriate? TBD Department of Internal Medicine Division of Endocrinology, Diabetes, & Metabolism Endocrinology Note Patient Name: Salazar Coyle : 1950 AGE: 72 y.o. Room/Bed: [facility]/ A Admission Date: 07/30/2023 Visit Date: 08/07/2023 Reason for Endocrine Consult: Hyperglycemia requiring insulin GGT, on steroids and tube feeds Provider/Team Requesting Consult: Dr. Del Real PCP: DO Michele Knutson Desktop Support Associate: Yes Dr. Woods ASSESSMENT: Type II Diabetes with hyperglycemia Urosepsis versus pyelonephritis Severe sepsis History of ESBL bacteremia requiring long dose meropenem History left UPJ calculus Chronic Jose with neurogenic bladder Leukocytosis Metabolic acidosis Lactic acidosis NAGMA CKD stage IIIb WHITLEY Hypertension Hyperlipidemia PHOEBE Noncompliance to CPAP Chronic lower extremity wounds Chronic venous stasis PLAN: Transition to Lantus 36 units nightly Continue Humalog 5 units TID with meals Continue humalog low dose sliding scale TID with meals Patient started on carb diet today. ICU goal <180 GMF goal <150 POCT BG ACHS Hypoglycemia management per protocol Carb controlled diet ANTICIPATED ENDOCRINE HOME GOING RECOMMENDATIONS: Optimized for Discharge from Endocrine standpoint: No Home Going Endocrine Rx Recommendations-- Lantus -dose to be determined Humalog -dose to be determined Outpt Follow Up-- Clinical clinic endocrinology SUBJECTIVE/HPI: CHIEF COMPLAINT: Chief Complaint Patient presents with Altered Mental Status 72 YO female w/PMH dementia, T2DM, morbid obesity, PHOEBE, chronic Jose 2/2 neurogenic bladder, Anxiety and chronic pain. OF note, patient admitted May 2022 w/ ESBL E. Coli bacteremia with left UPJ calculus s/p stent and extended IV meropenem. Patient did require laser lithotripsy and stent exchange at this time. Patient arrived to [facility] ED for altered mental status. Cystoscopy, left ureteral stent placement completed 07/31/2023 Type of DM: 2 Onset of DM: Home DM Medication Regimen: Lantus 10 units nightly Humalog 3 units 3 times daily before meals DM control (last A1c/glucose data): Lab Results Component Value Date HGBA1C 9.0 (H) 07/30/2023 Today- Tolerating diet Appetite is decreased. Blood sugars reviewed and listed below Patient alert but confused Glucose Date/Time Value Ref Range Status 08/07/2023 11:49 AM 169 (H) 70 - 100 mg/dL Final 08/07/2023 09:00 AM 91 70 - 100 mg/dL Final 08/07/2023 05:22 AM 82 70 - 100 mg/dL Final 08/06/2023 06:06 PM 176 (H) 70 - 100 mg/dL Final 08/06/2023 11:46 AM 107 (H) 70 - 100 mg/dL Final 08/06/2023 06:09 AM 141 (H) 70 - 100 mg/dL Final Review of Systems Constitutional: Positive for appetite change and fatigue. Respiratory: Negative for shortness of breath. Cardiovascular: Positive for leg swelling. Negative for chest pain and palpitations. Gastrointestinal: Negative for abdominal pain. Endocrine: Negative for polydipsia, polyphagia and polyuria. Skin: Positive for wound. Neurological: Positive for weakness. ROS negative except for those mentioned in HPI. OBJECTIVE: Vitals: 08/07/23 1102 08/07/23 1202 08/07/23 1302 08/07/23 1402 BP: 108/51 118/55 106/51 (!) 107/47 BP Location: Patient Position: Pulse: 87 83 81 87 Resp: 19 15 12 (!) 11 Temp: TempSrc: SpO2: 90% (!) 87% 100% 100% Weight: Height: Physical Exam Vitals and nursing note reviewed. Constitutional: General: She is not in acute distress. Appearance: She is obese. She is ill-appearing. She is not toxic-appearing or diaphoretic. HENT: Head: Normocephalic. Nose: Nose normal. Mouth/Throat: Mouth: Mucous membranes are moist. Eyes: Conjunctiva/sclera: Conjunctivae normal. Cardiovascular: Rate and Rhythm: Normal rate and regular rhythm. Pulses: Normal pulses. Heart sounds: Normal heart sounds. No murmur heard. Pulmonary: Effort: Pulmonary effort is normal. No respiratory distress. Breath sounds: Normal breath sounds. Musculoskeletal: General: Swelling present. Right lower leg: Edema present. Left lower leg: Edema present. Skin: General: Skin is warm and dry. Neurological: General: No focal deficit present. Mental Status: She is alert. Psychiatric: Mood and Affect: Mood normal. Behavior: Behavior normal. 24 hour intake/output: Intake/Output Summary (Last 24 hours) at 08/07/2023 1556 Last data filed at 08/07/2023 1516 Gross per 24 hour Intake 958 ml Output 4245 ml Net -3287 ml Diet: Adult diet Regular; No Added Salt (3-4 gm); 4 carb choices (60 gm/meal); 1800 ml Medications (as per EMR): HomeMeds: Current Outpatient Medications Medication Instructions acetaminophen (TYLENOL) 325 mg, Oral, 3 times daily apixaban (ELIQUIS) 5 mg, Oral, 2 times daily ascorbic acid (VITAMIN C) 250 mg, Oral, Daily atorvastatin (LIPITOR) 20 mg, Oral, Daily baclofen (Lioresal) 5 MG tablet 1 tablet, Oral, 3 times daily Calcium Carbonate-Vitamin D (Oyster Shell Calcium/D) 500-5 MG-MCG tablet 1 tablet, Oral, Daily Diclofenac Sodium (VOLTAREN) 4 g, Topical, 2 times daily donepezil (ARICEPT) 10 mg, Oral, Nightly furosemide (LASIX) 40 mg, Oral, 2 time daily gabapentin (NEURONTIN) 200 mg, Oral, 3 times daily insulin glargine (LANTUS) 10 Units, SubCUTAneous, Nightly Insulin Lispro (HUMALOG) 3 Units, SubCUTAneous, 3 times daily with meals lisinopril 10 mg, Oral, Daily MEROPENEM IV 2 g, IntraVENous, Every 8 hours nystatin (Mycostatin) 092532 UNIT/GM powder No dose, route, or frequency recorded. senna-docusate (Helena-Colace) 8.6-50 MG tablet 100 tablets, Oral, Every 24 hours sertraline (ZOLOFT) 50 mg, Oral, Daily Scheduled Meds:ammonium lactate, , Topical, BID apixaban, 5 mg, Oral, BID [Held by provider] ascorbic acid, 250 mg, Oral, Daily atorvastatin, 20 mg, Oral, Nightly [Held by provider] baclofen, 5 mg, Oral, TID bisacodyl, 10 mg, Rectal, BID bumetanide, 1 mg, Oral, BID cyanocobalamin, 1,000 mcg, Oral, Daily Diclofenac Sodium, 4 g, Topical, BID donepezil, 10 mg, Oral, Nightly famotidine (Pepcid) 20 mg in sodium chloride (PF) 0.9 % 10 mL injection, 20 mg, IntraVENous, BID folic acid, 1 mg, Oral, Daily gabapentin, 300 mg, Oral, TID insulin glargine, 36 Units, SubCUTAneous, Nightly insulin lispro, 0-6 Units, SubCUTAneous, TID WC insulin lispro, 5 Units, SubCUTAneous, TID WC ipratropium-albuterol, 3 mL, Nebulization, TID [Held by provider] lisinopril, 10 mg, Oral, Daily meropenem, 2,000 mg, IntraVENous, q8h miconazole, , Topical, BID nystatin, , Topical, BID Petrolatum, , Topical, BID senna-docusate sodium, 2 tablet, Oral, BID sertraline, 50 mg, Oral, Daily sodium chloride 0.9%, 10 mL, IntraVENous, 2 times per day sodium chloride 0.9%, 10 mL, IntraCATHeter, q12h sodium chloride, 4 mL, Nebulization, BID stomahesive in petrolatum, , Topical, q8h Continuous Infusions: PRN Meds:PRN medications: [Held by provider] acetaminophen OR [Held by provider] acetaminophen, dextrose, dextrose, glucagon (rDNA), glucose, heparin flush, labetalol, LORazepam, naloxone, ondansetron ODT OR ondansetron, oxyCODONE, polyethylene glycol (PEG) 3350, sodium chloride 0.9%, sodium chloride 0.9% Diagnostic Workup: I reviewed pertinent Laboratory results, Radiographic results, and Other Clinical Notes at the time of today's encounter. Labs: No components found for: "LABA1C" No components found for: "EAG" Lab Results Component Value Date NA 144 08/07/2023 K 3.7 08/07/2023 CL 101 08/07/2023 CO2 33 (H) 08/07/2023 BUN 70 (H) 08/07/2023 CREATININE 1.11 (H) 08/07/2023 GLUCOSE 127 (H) 08/07/2023 CALCIUM 9.2 08/07/2023 No results found for: "CHLPL", CHOL No results found for: "TRIG" No results found for: "HDL" No results found for: "LDLCALC" No results found for: "VLDL" No results found for: "CHOLHDLRATIO" No results found for: "YCMC74JTK" No results found for: "TSH", "Q6NWEQH", "E9EDPIY", "THYROIDAB" Radiology reportsas per the Radiologist Radiology: POCT glucose meter Result Date: 07/31/2023 Performed by: Bentley Mora, [address] [place] [address] CLIA ID: [id number] POCT glucose meter Result Date: 07/31/2023 Performed by: Bentley Mora, [address] [place] [address] CLIA ID: [id number] POCT glucose meter Result Date: 07/31/2023 Performed by: Bentley Mora, [address] [place] [address] CLIA ID: [id number] POCT glucose meter Result Date: 07/31/2023 Performed by: Bentley Mora, [address] [place] [address], [place] [address] CLIA ID: [id number] POCT glucose meter Result Date: 07/31/2023 Performed by: [facility] [place] [facility], [address] [place] [address], [place] [address] CLIA ID: [id number] POCT glucose meter Result Date: 07/31/2023 Performed by: [facility] [place] [facility], [address] [place] [address], [place] [address] CLIA ID: [id number] POCT glucose meter Result Date: 07/31/2023 Performed by: [facility] [place] [facility], [address] [place] [address], [place] [address] CLIA ID: [id number] POCT glucose meter Result Date: 07/31/2023 Performed by: [facility] [place] [facility], [address] [place] [address], [place] [address] CLIA ID: [id number] POCT glucose meter Result Date: 07/31/2023 Performed by: [facility], [address] [place] [address], [place] [address] CLIA ID: [id number] POCT glucose meter Result Date: 07/31/2023 Performed by: [facility], [address] [place] [address], [place] [address] CLIA ID: [id number] POCT glucose meter Result Date: 07/31/2023 Performed by: [facility], [address] [place] [address], [place] [address] CLIA ID: [id number] POCT glucose meter Result Date: 07/31/2023 Performed by: [facility] [place] [facility], [address] [place] [address], [place] [address] CLIA ID: [id number] POCT glucose meter Result Date: 07/31/2023 Performed by: [facility] [place] [facility], [address] [place] [address], [place] [address] CLIA ID: [id number] Transthoracic echocardiogram (TTE) complete with contrast, bubble, strain, and 3D PRN Result Date: 07/31/2023 Left Ventricle: Left ventricle size is normal. Mildly increased wall thickness. Normal left ventricular systolic function. EF by 2D Simpsons Biplane is 63%. Normal wall motion. Right Ventricle: Right ventricle size is normal. Normal systolic function. Aortic Valve: Trileaflet. No cusp thickening. Mildly calcified cusps. Mild annular calcification. No regurgitation. Valve appears to open well velocities suggest Mild stenosis of the aortic valve. AV mean gradient is 9 mmHg. AV area by continuity VTI is 2.3 cm2. Left Atrium: Left atrium is dilated. POCT glucose meter Result Date: 07/31/2023 Performed by: [facility], [address] [place] [address] CLIA ID: [id number] POCT glucose meter Result Date: 07/31/2023 Performed by: [facility], [address] [place] [address] CLIA ID: [id number] POCT glucose meter Result Date: 07/31/2023 Performed by: [facility] [place] [facility], [address] [place] [address] CLIA ID: [id number] POCT glucose meter Result Date: 07/31/2023 Performed by: [facility] [place] [facility], [address] [place] [address] CLIA ID: [id number] OR GUIDANCE OR USE ONLY - NON RESULTABLE Result Date: 07/31/2023 There is no interpretation needed for this exam. ECG 12 lead Sinus tachycardia IVCD, consider LBBB Electronically Signed On 07-31-2023 06:14:25 EDT by Emilie Nicole POCT glucose meter Result Date: 07/31/2023 Performed by: [facility], [address] [place] [address] CLIA ID: [id number] XR chest 1 view Result Date: 07/31/2023 [facility] : 1950 [id number] Exam Date/Time: 07/31/2023 04:56 Procedure: XR CHEST 1 VIEW Ordering Provider: DEL REAL CHELSEA Reason For Exam: verify ETT placement EXAMINATION: XR chest AP. EXAM DATE & TIME: 07/31/2023 4:56 AM EDT INDICATION: verify ETT placement ADDITIONAL INFORMATION: 72-year-old female presents for follow-up after intubation COMPARISON: Chest x-ray dated 07/31/2023 TECHNIQUE: Frontal view of the chest was obtained. FINDINGS: Lines/support devices: An endotracheal tube is present with its distal tip approximately 1.9 cm above the candy. Unchanged right internal jugular approach central venous catheter, terminating in the region of the cavoatrial junction. An NG/OG tube is present with its distal tip coursing subdiaphragmatically and beyond the lnxjl-sb-gare. Cardiac leads project over the chest, somewhat limiting evaluation. Cardiomediastinal silhouette: The heart is slightly enlarged. Lungs/pleura: A small left pleural effusion is seen. Right pleural spaces are clear. No evidence of pneumothorax. Osseous structures: Degenerative changes of the spine and shoulders are seen. No acute osseous abnormality is demonstrated. Other findings: None. 1. Small left pleural effusion. Underlying consolidation is not excluded. 2. Lines and support devices as above. Report Dictated on Electronically Signed By: Catarino Sue MD Electronically Signed Date/Time: 07/31/2023 5:05 AM EDT POCT glucose meter Result Date: 07/31/2023 Performed by: [facility], [address] [place] [address] CLIA ID: [id number] POCT glucose meter Result Date: 07/31/2023 Performed by: [facility], [address] [place] [address] CLIA ID: [id number] XR chest 1 view Result Date: 07/31/2023 Patient Name: [facility]AZAR COYLE : 1950 [id number] Exam Date/Time: 07/31/2023 01:43 Procedure: XR CHEST 1 VIEW Ordering Provider: DEL REAL CHELSEA Reason For Exam: PROCEDURES PORTABLE CHEST CLINICAL INDICATION: PROCEDURES TECHNIQUE: Portable AP COMPARISON: 07/30/2023 FINDINGS: Right IJ central line tip projects over the SVC. No focal consolidation or pulmonary edema. No pleural effusions or pneumothorax. The heart demonstrates normal size. Calcification of the thoracic aorta is noted. Degenerative change of the thoracic spine is noted. No focal consolidation or pulmonary edema. Report Dictated on Electronically Signed By: Bashir Barnes MD Electronically Signed Date/Time: 07/31/2023 2:[address] abdomen pelvis wo IV contrast Result Date: 07/31/2023 Patient Name: SALAZAR COYLE : 1950 [facility]#: [id number] Exam Date/Time: 07/31/2023 00:27 Procedure: CT ABDOMEN PELVIS WO IV CONTRAST Ordering Provider: CALDERÓN SHANNON Reason For Exam: UTI, recurrent/complicated (Female) EXAMINATION: CT of the abdomen and pelvis without contrast. EXAM DATE & TIME: 07/31/2023 12:27 AM EDT INDICATION: UTI, recurrent/complicated (Female) ADDITIONAL INFORMATION: 72-year-old female with a provided history of UTI presents for evaluation COMPARISON: CT abdomen pelvis dated 06/10/2022 LIMITATIONS: Evaluation of the vasculature as well as the solid and hollow viscera is limited due to the lack of intravenous and oral contrast. Additional limitations are present secondary to portions of the patient outside the leidk-sj-rfjh and associated beam hardening artifact. TECHNIQUE: Contiguous multiplanar 3 mm images were obtained from the levels of the lung bases through the pelvis without contrast. Images were reformatted in coronal and sagittal projections using the raw CT data and were interpreted in conjunction with the axial images to render the findings listed below. Dose reduction was employed with automated exposure control. FINDINGS: Included images of the lower thorax: There is bibasilar scarring/atelectasis. No focal lung consolidation or pleural effusion. Stable 3 mm right lower lobe pulmonary nodule (series 4, image 7). Previously identified 1.3 cm nodule is not included on the current examination. Hepatobiliary: Unremarkable liver without biliary dilation evident. Cholelithiasis is seen. Spleen: Unremarkable. Pancreas: There is fatty atrophy of the pancreas. Adrenal glands: Unremarkable. Kidneys, ureters and bladder: There is an 8 mm left UPJ calculus with mild to moderate upstream hydronephrosis (HU = 327). Additional coarse, nonobstructing left renal calculi are noted. No evidence of right-sided hydronephrosis or nephrolithiasis. A Jose catheter is present within the urinary bladder, decompressing it and limiting evaluation. Abdominal and pelvic vasculature: Atherosclerotic vascular calcifications are present in the abdominal aorta and its proximal major branches. Gastrointestinal: No evidence of obstruction. No pericecal inflammation to suggest acute appendicitis. Peritoneum, retroperitoneum and mesentery: No free fluid or free air. Inflammatory changes surround the left kidney. Lymph nodes: No abdominal or pelvic lymphadenopathy is evident. Solid pelvic viscera: The uterus appears surgically absent. Visualized musculoskeletal structures: No acute fracture or destructive osseous lesion is identified. Multilevel spondylosis is present. The bones are diffusely osteopenic. 1. Study limited as above. Allowing for this, there is a left UPJ calculus with mild to moderate upstream hydronephrosis. 2. Stable 3 mm right lower lobe pulmonary nodule. Recommendations for follow-up as below. Previously noted 1.3 cm pulmonary nodule is not included on the current examination. 3. Additional chronic findings as above. Updated Fleischner Society Guidelines for Management of Small Pulmonary Nodules Detected on CT (2017) SOLITARY NODULE: LOW RISK PATIENT < 6 mm - No follow-up 6 - 8 mm - 6 - 12 month follow-up, then consider 18 - 24 months > 8 mm - PET/CT, biopsy, or 3 month follow-up SOLITARY NODULE: HIGH RISK PATIENT < 6 mm - Optional 6 - 12 months follow-up (suspicious morphology or upper lobe) 6 - 8 mm - 6 - 12 month follow-up, then 18 - 24 months > 8 mm - PET/CT, biopsy, or 3 month follow-up MULTIPLE NODULES: LOW RISK PATIENT (Use most suspicious) All < 6 mm - No follow-up Any > 6 mm - 3 - 6 month follow-up, then 18 - 24 months MULTIPLE NODULES: HIGH RISK PATIENT (Use most suspicious) All < 6 mm - No follow-up Any > 6 mm - 3 - 6 month follow-up, then 18 - 24 months Report Dictated on Electronically Signed By: Catarino Sue MD Electronically Signed Date/Time: 07/31/2023 2:35 AM EDT POCT glucose meter Result Date: 07/31/2023 Performed by: Bentley Serna [facility], [address] [place], [place] [id number] CLIA ID: [id number] ECG 12 lead Sinus or ectopic atrial rhythm Left bundle branch block Consider anterolateral infarct Compared to ECG 03/13/2021 22:47:47 Ectopic atrial rhythm now present Left bundle-branch block now present Sinus rhythm no longer present Intraventricular conduction delay no longer present T-wave abnormality no longer present Myocardial infarct finding still present Electronically Signed On 07-31-2023 02:00:48 EDT by Paige Flores POCT glucose meter Result Date: 07/31/2023 Performed by: [facility] [place] [facility], [address] [place] [address], [facility] [address] CLIA ID: [id number] POCT glucose meter Result Date: 07/31/2023 Performed by: [facility] [place] [facility], [address] [place] [address], [place] [address] CLIA ID: [id number] POCT glucose meter Result Date: 07/31/2023 Performed by: [facility] [place] [facility], [address] [place] [address], [place] [address] CLIA ID: [id number] POCT arterial blood gas Result Date: 07/31/2023 Performed by: [facility] [place] [facility], [address] [place] [address], [place] [address] CLIA ID: [id number] POCT glucose meter Result Date: 07/30/2023 Performed by: [facility] [place] [facility], [address] [place] [address], [place] [address] CLIA ID: [id number] POCT glucose meter Result Date: 07/30/2023 Performed by: [facility] [place] [facility], [address] [place] [address], [place] [address] CLIA ID: [id number] POCT venous blood gas Result Date: 07/30/2023 Performed by: [facility], [address] [place] [address], [place] [address] CLIA ID: [id number] POCT glucose meter Result Date: 07/30/2023 Performed by: [facility] [place] [facility], [address] [place] [address], [place] [address] CLIA ID: [id number] CT head wo IV contrast Result Date: 07/30/2023 Patient Name: [facility]AZ[facility] COYLE : 1950 [id number] Exam Date/Time: 07/30/2023 14:19 Procedure: CT HEAD WO IV CONTRAST Ordering Provider: LEMON JAY Reason For Exam: Mental status change, unknown cause Indication: Mental status change Comparison date: 06/09/2022 FINDINGS: Dose reduction was employed with automated exposure control.3 mm unenhanced imaging of the brain performed. Images viewed in multiple orthogonal planes. Acute findings: No convincing acute ischemia or infarct, mass effect or midline shift, or hemorrhage. Bony structures:Unremarkable as seen. Orbits within normal limits, limited lack of contrast. Review of the paranasal sinuses shows stable right maxillary fluid-filled partially calcified structure etiology uncertain.. No acute brain process identified. Report Dictated on Electronically Signed By: Carlos Martinez MD Electronically Signed Date/Time: 07/30/2023 2:51 PM EDT XR chest 1 view Result Date: 07/30/2023 Patient Name: SALAZAR COYLE : 1950 [facility]#: [id number] Exam Date/Time: 07/30/2023 14:01 Procedure: XR CHEST 1 VIEW Ordering Provider: LEMON JAY Reason For Exam: ALTERED MENTAL STATUS EXAM TYPE: RADIOLOGIC EXAMINATION, CHEST, SINGLE VIEW FRONTAL (CXR SINGLE VIEW) EXAM DATE AND TIME: 07/30/2023 2:01 PM EDT INDICATION: Altered mental status COMPARISON: 06/10/2022 TECHNIQUE: A single frontal view of the thorax was obtained and reviewed. Special views: None. 1. Lines/Tubes/Devices/Hardware: Leads noted. Please confirm position and function of any catheters or attempted catheters clinically. 2. Lungs: No convincing acute process.. Limited due to portable technique. Consider follow-up with PA and lateral chest for persistent symptoms. 3. Pleura: No significant effusion. No significant pneumothorax. 4. Heart and mediastinum: Limited due to technique. 5. Upper abdomen: No acute process seen. 6. Thorax:No acute bony process Report Dictated on Electronically Signed By: Carlos Martinez MD Electronically Signed Date/Time: 07/30/2023 2:03 PM EDT POCT venous blood gas Result Date: 07/30/2023 Performed by: [facility], [address] [place] [id number] CLIA ID: [id number] POCT glucose meter Result Date: 07/30/2023 Performed by: [facility], [address] [address] CLIA ID: [id number] History/Other: Past Medical History: Past Medical History: Diagnosis Date A-fib (CMS/HCC) (HCC) Anemia Diabetes (HCC) Lymphedema Obesity Past Surgical History: History reviewed. No pertinent surgical history. Allergy(ies): Allergies Allergen Reactions Ertapenem Patient tolerated July 2022 Tolerated meropenem August 2023 Family History: No family history on file. Social History: Social History Tobacco Use Smoking status: Never Smokeless tobacco: Never Vaping Use Vaping Use: Never used Substance Use Topics Alcohol use: Never Drug use: Never I spent total time 35 minutes reviewing previous notes, test results, and face to face with the patient discussing the diagnosis and importance of compliance with the treatment plan as well as documenting on the day of the visit. Electronically signed by ZINA Barrett CNP 08/07/2023 3:56 PM Portions of the information within this encounter were entered using an electronic dictation system. Best attempts were made to edit/proofread the information prior to note completion. Despite the review of information, some errors may remain. If there are questions related to the information contained within the note please contact the signing physician directly. Images from the original note were not included. Speech-Language Pathology SPEECH LANGUAGE PATHOLOGY [facility] Dysphagia Treatment Note Patient Name: Salazar Coyle Evaluation Date: 08/07/2023 Date of : 1950 Admission Date: 07/30/2023 1:00 PM Age: 72 y.o. Room/Bed: / A Subjective Patient alert and agitated, slightly impulsive. Seen semi-upright in bed, (does not tolerate sitting up). Answers some basic questions with clear vocal quality. Follows some basic commands. No visitors at bedside. Spoke with MATHEUS Xiao who cleared pt for treatment. Current Diet: Dietary Orders (From admission, onward) Start Ordered 08/06/23 1303 Adult diet Regular; No Added Salt (3-4 gm); 4 carb choices (60 gm/meal); 1800 ml Diet effective now Comments: Double proteins Question Answer Comment Diet type Regular Sodium restriction: No Added Salt (3-4 gm) Carbohydrate restriction: 4 carb choices (60 gm/meal) Dietary fluid restriction / 24h: 1800 ml 08/06/23 1303 Aspiration Precautions: - Upright positioning for all PO intake - single bites Oxygen: Oxygen Therapy: Supplemental oxygen O2 Delivery Method: Nasal cannula O2 Flow Rate (L/min): 3 L/min (Pt was taking O2 off, did not want to leave on) I love peanut butter Pain: RN managing pain. Pain in legs with attempt to sit most upright. Only able to tolerate semi-upright PPE Worn: gloves Objective & Assessment Dysphagia Treatment # of Activities: 1 Dysphagia Activity 1: Assess tolerance of recommended diet. Pt with good level of alertness. She was willing to trial snack-eloina cracker with peanut butter and water via cup and straw drink. Pt was taking well. No overt defcits with mastication. Pt does take larger drinks via cup or straw. She overtly was able to maintain consistent swallow. Questionable mucous/slight pharyngeal residuals with vocal change/throat clear at conclusion of swallow) Encourage deep coughing with attempt to expectorate. Pt deferred. She began to focus on laying back. "Lay me back" Plan & Recommendations Plan: Continue further assessment of current diet. Encourage O2 as needed and determine need for further testing. 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 D/C Recommendations: to be determined Education Education Given: swallowing strategies Given To: patient Response: needs reinforcement Goals Patient Stated Goal: To lay down. 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 year old female who we are seeing in consultation for volume management. Extubated / NAEON Alert x1 at baseline Urine output good BP soft but stable Lasix gtt dc'd 08/05 Appetite + ROS otherwise negative. No change in PFSH. Objective/ Vitals: 08/07/23 0302 08/07/23 0402 08/07/23 0502 08/07/23 0602 BP: 103/71 118/58 105/80 (!) 123/106 BP Location: Left arm Patient Position: Lying Pulse: 84 83 79 90 Resp: 16 03 13 16 Temp: 36.7 C (98.1 F) TempSrc: Oral SpO2: 100% 100% 94% 97% Weight: Height: 24HR INTAKE/OUTPUT: Intake/Output Summary (Last 24 hours) at 08/07/2023 1246 Last data filed at 08/07/2023 1242 Gross per 24 hour Intake 1208 ml Output 4230 ml Net -3022 ml Constitutional: ill appearing, NAD, alert x1. Head: AT NC Neck: No JVD, no thyromegaly Cardiovascular: S1, S2 without m/r/g Respiratory: diminished throughout Abdomen: soft, nt Ext: 1+ B/L pitting LE edema, no tremor. Skin: BLE redness/ulcerations ammonium lactate, , Topical, BID apixaban, 5 mg, Oral, BID [Held by provider] ascorbic acid, 250 mg, Oral, Daily atorvastatin, 20 mg, Oral, Nightly [Held by provider] baclofen, 5 mg, Oral, TID bisacodyl, 10 mg, Rectal, BID bumetanide, 1 mg, Oral, BID cyanocobalamin, 1,000 mcg, Oral, Daily Diclofenac Sodium, 4 g, Topical, BID donepezil, 10 mg, Oral, Nightly famotidine (Pepcid) 20 mg in sodium chloride (PF) 0.9 % 10 mL injection, 20 mg, IntraVENous, BID folic acid, 1 mg, Oral, Daily gabapentin, 300 mg, Oral, TID insulin lispro, 0-6 Units, SubCUTAneous, TID WC insulin lispro, 5 Units, SubCUTAneous, TID WC insulin NPH, 18 Units, SubCUTAneous, q12h ipratropium-albuterol, 3 mL, Nebulization, TID [Held by provider] lisinopril, 10 mg, Oral, Daily meropenem, 2,000 mg, IntraVENous, q8h miconazole, , Topical, BID nystatin, , Topical, BID Petrolatum, , Topical, BID senna-docusate sodium, 2 tablet, Oral, BID sertraline, 50 mg, Oral, Daily sodium chloride 0.9%, 10 mL, IntraVENous, 2 times per day sodium chloride 0.9%, 10 mL, IntraCATHeter, q12h sodium chloride, 4 mL, Nebulization, BID stomahesive in petrolatum, , Topical, q8h PRN medications: [Held by provider] acetaminophen OR [Held by provider] acetaminophen, dextrose, dextrose, glucagon (rDNA), glucose, heparin flush, labetalol, LORazepam, naloxone, ondansetron ODT OR ondansetron, oxyCODONE, polyethylene glycol (PEG) 3350, sodium chloride 0.9%, sodium chloride 0.9% Data/ Recent Labs 08/06/23 0444 08/06/23 1224 08/07/23 0313 WBC 4.5 8.5 7.0 HGB 7.0* 8.2* 8.6* HCT 22.4* 26.4* 27.9* MCV 107.7* 107.8* 109.4* PLT 119* 176 205 Recent Labs 08/05/23 0343 08/05/23 1505 08/06/23 0425 08/06/23 1651 08/07/23 0313 NA 143 141 145 144 144 K 4.0 4.2 3.9 3.8 3.7 CL 105 102 104 101 101 CO2 29 30 33* 31* 33* GLUCOSE 154* 207* 136* 149* 127* PHOS 2.9 3.5 3.7 -- -- MG 2.1 2.0 2.2 -- -- BUN 74* 72* 71* 71* 70* CREATININE 1.09* 1.09* 1.11* 1.09* 1.11* Assessment/ CKD3b (N18.32) Volume overload (E87.70) Acute hypoxic respiratory failure (J96.01) Septic shock, resolved (R65.21) UTI DMT2 Anemia Plan/ Renal function tolerating diuresis Now with some hypotension Keep SBP > 100 for adequate renal perfusion Agree with ICU plan for po bumex for chronic diuresis Lytes overall stable Trend K in setting of loop diuresis UOP excellent Noted plan for ICU transfer to [facility]/w RN and Dr Garner ICU Will follow Thank you for the consult and the opportunity to participate in the care of this patient. Please do not hesitate to call with any questions or concerns. Ana Frost, ZINA, MANAGER PRESENTATION [facility], [facility] [phone] office Associated attestation - Sarita Wray MD - 08/07/2023 2:16 PM EDT I have reviewed the above assessment and plan with the HAND I THERMAL CUTTER. I agree with above note. Renal function tolerating diuresis. Images from the original note were not included. Palliative Care Progress Note Chief Complaint: Salazar Coyle is a 72 y.o. female with chief complaint of encephalopathy. Palliative Care is actively following. Assessment/Plan Encephalopathy - underlying dementia - septic shock 2/ UTI, L hydronephrosis post cystoscopy with ureteral stent 07/31/23 Septic shock - ID following - per ICU: meropenem, prior norepinephrine gtt stopped 08/01/23, intermittent albumin Acute respiratory failure with hypoxia - intubated 07/30/23--successfully extubated, actually on room air without concerns - room air - per ICU: duonebs, hypertonic saline nebs HFpEF - per ICU bumex, as stopping furosemide gtt Debility - bed-bound at baseline Chronic pain - seen by palliative at facility - per ICU: gabapentin 300mg three times per day, may increase in upcoming days - she denies pain but once touched starts to yell to stop - added prn oxycodone, will see needs and may need to schedule if using often Anxiety/depression - per ICU scheduled sertraline, gabapentin will also help with anxiety - added prn lorazepam, monitor needs Palliative Care Encounter -full code - primary HCP[place] in [facility] [place] - dtr is Deidra - I also reviewed her LW in [facility], would not want long-term vent supports - will continue to follow for ongoing monitoring of progression of Pain - will continue to evaluate test results related to UTI/bacteremia , medication effectiveness for Pain, response to treatment of UTI/bacteremia - will continue treatment including none at this time, sill need to follow for oxycodone Total of 40 minutes spent on this encounter including Chart review, Patient visit and exam, Documentation in EHR, Care coordination, Communicating with primary attending or other consultants, and Counseling and educating patient/family/caregiver. Discharge planning: Not ready for discharge due to medical instability Patient meets criteria for general inpatient hospice care including the following: N/A - Palliative Care Patient Referrals to: None Discussed patient and the plan of care with the other interdisciplinary team (IDT) members of Palliative Care Team, and with Primary Attending, Patient, and Floor Nurse Insert attestation statement here if applicable (.disupervision) or (.npattest) Subjective: Subjective/Events Since last seen: successfully extubated, awake in bed in NAD, without pain--but upon exam asked me to stop touching her feet, when asked if painful could not tell me, CP, abdominal pain, breathing easy, no nausea, vomiting, appetite good, last BM today Salazar Coyle is a 72 y.o. female living at [facility] for 24 hour care and supervision, has been resident there since 2021. PMHx includes, CVA, TIA, primarily bed bound at baseline, dementia, Afib, DM, PHOEBE, chronic jose due to neurogenic bladder, anxiety, depression, chronic pain. Brought to [facility] [place] for encephalopathy had been given AM pills without difficulty however upon return to room she was unresponsive. Admitted to ICU, required emergent cystoscopy with L ureteral stent placement for L hydronephrosis, intubated 07/31/23, returned to ICU for care. Given multiple medical concerns, palliative care consulted for goals of care Goals of care:Continue Current Management Functional Assessment: PPS: 30% Advance Directives: Full Code Surrogate: HCPOA Prognosis: unknown Spiritual assessment: No spiritual distress identified Bereavement and grief: Grief Issues Not Identified Review of Systems ROS: See palliative care ROS/ESAS below; All other systems were reviewed and are negative. Monroe Symptom Assessment Score Monroe Score Pain Score 0 Tiredness Score 0 Nausea Score 0 Depression Score 0 Anxiety Score 0 Drowsiness Score 0 Anorexia Score (0= eating well, 10= not eating) 0 Wellbeing Score (10= worst sense of well-being) 0 Constipation 0 Dyspnea Score (0= no shortness of breath) 0 FLACC Scale (For Pain Assessment of the Non-Verbal Patient) Patient is verbal Assessed by: patient and provider. Social history: status: no Marital status: Living status: fpc Work history: not empolyed Family Meeting: (if discussing Advanced Care Planning, include .PALLACP) Participants: none held Family meeting was held to discuss:N/A Objective: Physical Exam BP (!) 123/106 Pulse 90 Temp 36.7 C (98.1 F) (Oral) Resp 16 Ht 5' 5" (1.651 m) Wt (!) 350 lb (159 kg) SpO2 97% BMI 58.24 kg/m Physical Exam Vitals and nursing note reviewed. Constitutional: Appearance: She is obese. She is ill-appearing. HENT: Head: Normocephalic and atraumatic. Nose: Nose normal. Mouth/Throat: Mouth: Mucous membranes are moist. Eyes: General: Right eye: No discharge. Left eye: No discharge. Pupils: Pupils are equal, round, and reactive to light. Cardiovascular: Rate and Rhythm: Normal rate and regular rhythm. Pulses: Normal pulses. Heart sounds: Normal heart sounds. No murmur heard. Comments: No edema B post tib/dorsalis pedis palpable R 4-5 toes amputated Pulmonary: Effort: Pulmonary effort is normal. Breath sounds: Normal breath sounds. Abdominal: General: Bowel sounds are normal. There is no distension. Palpations: Abdomen is soft. There is no mass. Genitourinary: Comments: Jose to gravity Musculoskeletal: General: Deformity (R foot with 4-5 toes removed) present. Cervical back: Normal range of motion and neck supple. Right lower leg: No edema. Left lower leg: No edema. Skin: General: Skin is warm and dry. Comments: fragile Neurological: Comments: Able to answer simple yes and no questions, not sure of place or date or situation Psychiatric: Behavior: Behavior is cooperative. Comments: No agitation Current Medications: Inpatient medications reviewed: yes Home medications reviewed: yes OARRS Reviewed: Yes-no reportable medications despite ECF on gabapentin, lorazepam and oxycodone 24 Hour PRN Meds: no PRN medications in 24 hours Results/Verification of Data Review Objective data reviewed (be specific which labs, imaging reports with dates reviewed): MAR/vitals/labs reviewed 08/07/23 08/05/23: CXR report reviewed Data in Support of Terminal Illness: Is patient hospice appropriate? TBD ICU Progress Note Name: Salazar Coyle : 1950(72 y.o.) Date: 08/07/23 Team: MICU Attending: Reynold Garner MD Subjective: Hospital Summary: 72-year-old female with history of dementia, A-fib on Eliquis, DMT2, PHOEBE, morbid obesity, chronic Jose secondary to neurogenic bladder, chronic pain, anxiety, and admission 05/2022 with ESBL E. coli bacteremia with left UPJ calculus s/p stent and extended meropenem who presented with acute encephalopathy requiring intubation, admitted with septic shock secondary to UTI, left hydronephrosis, s/p cystoscopy with ureteral stent placement 07/30. Interval Events: Overnight had some episodes of agitation/sun downing. Remains pleasantly demented. Confused but following commands. Per family she is at 80-90% baseline. Denied any pain upon rest but trigger when being touched or moved. Again per family this is her baseline. S/p PICC line placement 08/05. Scheduled Meds:ammonium lactate, , Topical, BID [Held by provider] apixaban, 5 mg, Oral, BID [Held by provider] ascorbic acid, 250 mg, Oral, Daily [Held by provider] atorvastatin, 20 mg, Oral, Nightly [Held by provider] baclofen, 5 mg, Oral, TID bisacodyl, 10 mg, Rectal, BID bumetanide, 1 mg, Oral, BID Diclofenac Sodium, 4 g, Topical, BID [Held by provider] donepezil, 10 mg, Oral, Nightly famotidine (Pepcid) 20 mg in sodium chloride (PF) 0.9 % 10 mL injection, 20 mg, IntraVENous, BID [Held by provider] gabapentin, 200 mg, Oral, TID heparin flush, 250 Units, IntraCATHeter, q12h insulin lispro, 0-6 Units, SubCUTAneous, TID WC insulin lispro, 5 Units, SubCUTAneous, TID WC insulin NPH, 22 Units, SubCUTAneous, q12h ipratropium-albuterol, 3 mL, Nebulization, TID [Held by provider] lisinopril, 10 mg, Oral, Daily meropenem, 2,000 mg, IntraVENous, q8h miconazole, , Topical, BID nystatin, , Topical, BID Petrolatum, , Topical, BID [Held by provider] senna-docusate sodium, 2 tablet, Oral, BID [Held by provider] sertraline, 50 mg, Oral, Daily sodium chloride 0.9%, 10 mL, IntraVENous, 2 times per day sodium chloride 0.9%, 10 mL, IntraCATHeter, q12h sodium chloride, 4 mL, Nebulization, BID stomahesive in petrolatum, , Topical, q8h Continuous Infusions:heparin, 5-30 Units/kg/hr, Last Rate: 10 Units/kg/hr (08/07/23 0426) Objective: Last Vitals: BP MAP (!) 123/106 (08/07/23 06) 113 (08/07/23601) Arterial BP MAP Temp 36.7 C (98.1 F) (08/07/23 0302) Pulse 90 (08/07/23601) Resp 16 (08/07/23601) SpO2 97 % (08/07/23601) Weight (!) 159 kg (350 lb) (07/31/23 0905) BMI Body mass index is 58.24 kg/m . I/O: 08/05 0700 - 08/06 0559 In: 1208 [P.O.:500; I.V.:608] Out: 3155 [Urine:3155] Ventilator: Ventilation Day(s): 2 Resp Rate (Set): 16 Vt (Set, mL): 400 mL FiO2 (%): 30 % PEEP/CPAP (cm H2O): 8 cm H20 Inspiratory Time (sec): 0.9 sec Oxygen Delivery: O2 Flow Rate (L/min): 3 L/min Invasive Lines / Tubes / Drains: CVC Triple Lumen 07/31/23 Non-tunneled Right Internal jugular (Active) Number of days: 6 Peripheral IV 07/30/23 Distal;Posterior;Right Forearm (Active) Number of days: 6 Peripheral IV 07/30/23 Anterior;Proximal;Right;Upper Arm (Active) Number of days: 6 Urethral Catheter Straight-tip 16 Fr. (Active) Number of days: 6 Central Line Indication: Inadequate peripheral access despite documented ultrasound attempts AND unable to place extended dwell PIV Jose Indications: Neurogenic bladder or chronic urinary retention Restraints: Restraints Non-Violent Or Non-Self Destructive Jul 31, 2023 4:41 Am Edt NA - patient is not restrained. Wounds: Wound/Incision 06/09/22 Traumatic Coccyx (Active) Date First Assessed/Time First Assessed: 06/09/22 1550 Present on Original Admission: Yes Primary Wound Type: Traumatic Wound Event: (c) Location: Coccyx Wound Description (Comments): red/brown blanchable areas Wound Outcome: Other (Comment) Wound/Incision 06/09/22 Venous Ulcer Pretibial Right (Active) Date First Assessed/Time First Assessed: 06/09/22 1540 Present on Hospital Admission: Yes Primary Wound Type: Venous Ulcer Location: Pretibial Wound Location Orientation: Right Wound Description (Comments): multi scabbed areas Wound/Incision 06/09/22 Venous Ulcer Pretibial Left (Active) Date First Assessed/Time First Assessed: 06/09/22 1540 Primary Wound Type: Venous Ulcer Location: Pretibial Wound Location Orientation: Left Wound Description (Comments): multi scabbed areas on shins Wound/Incision 06/10/22 Traumatic Leg Left;Proximal;Upper;Posterior (Active) Date First Assessed/Time First Assessed: 06/10/22 0832 Primary Wound Type: Traumatic Location: Leg Wound Location Orientation: Left;Proximal;Upper;Posterior Wound/Incision 06/10/22 Amputation site - Toe Anterior;Right (Active) Date First Assessed/Time First Assessed: 06/10/22 1900 Present on Hospital Admission: Yes Location: Amputation site - Toe Wound Location Orientation: Anterior;Right Wound Description (Comments): amputation of right pinky toe Wound/Incision 08/01/23 Pressure Injury Leg Anterior;Left;Upper;Medial (Active) Date First Assessed/Time First Assessed: 08/01/23 0000 Primary Wound Type: Pressure Injury Location: Leg Wound Location Orientation: Anterior;Left;Upper;Medial Pressure Injury Stage: Stage 2 Constitutional: General Appearance []WDWN [x]Obese []Cachectic []Thin []Ill Eyes: Inspection of Pupils/Irises Pupils round and react: [x]Yes []No Sclera: []Icteric [x]Non-Icteric Inspection of Conjunctiva/Lids Conjunctiva: []Injected [x]Non-Injected Lids: [x]Intact []Lesion Present ENT/Mouth: External Inspection of ears/nose [x] Normal [] Scar/Lesion/Mass Inspection of teeth/lips/gums Dentition: []Crow Teeth []Dentures Lips/Gums: []Intact []Lesion Present Mucosa: [][place] []Moist [x]Dry Neck: External Appearance Overall Appearance: [x]Normal []Lesion/Mass/Crepitus Present Trachea midline: [x]Yes []No Thyroid [x]Normal []Enlarged []Tender []Mass []Absent Respiratory: Respiratory effort []Labored [x]Non-Labored [] Mechanically-Ventilated Auscultation []Clear []Crackles []Wheezes []Rhonchi Distant and diminish Cardiovascular: Auscultation Rate: [x]Regular []Irregular []Tachycardia []Bradycardia Rhythm: []Regular [x]Irregular Murmur: []Present [x]Absent Extremities Peripheral Edema: [x]Present []Absent Varicosities: []Present [x]Absent Gastrointestinal: Abdomen Palpation: [x]Soft []Firm []Tender [x]Non-Tender []Distended [x]Non-distended Mass: []Present [x]Absent Bowel Sounds: [x]Present []Absent Hernia: []Present [x]Absent Liver/Spleen: []Hepatosplenomegaly [x]Organomegaly Absent Musculoskeletal: Inspection of Digits and Nails Cyanosis: []Present [x]Absent Clubbing: []Present [x]Absent Ischemia: []Present [x]Absent Infection: []Present [x]Absent Extremities BLANCA Equally: Except ([]RUE []RLE []LUE []LLE) Strength/Tone: Intact and Normal ([]RUE []RLE []LUE []LLE) Skin: Inspection []Normal [x]Rash []Lesion []Ulcer Palpation [x]Warm []Cool [x]Dry []Clammy []Nodules []Induration []Skin-tightening Cap-Refill: [] <3 sec [x] >3 seconds (delayed) Neurologic: GCS EYE: 4 - Opens spontaneously GCS MOTOR: 6 - Obeys commands for movement GCS VERBAL: 4 - Confused Total GCS: 14 [x] Sensation grossly intact Psych: Mental Status Alert: [x]Yes [] No Oriented: []x0 [x]X1 []X2 []x3 Mood/Affect []Normal []Flat []Agitated []Depressed []Anxious []Calm []Sedated [x]NAD Patient examine today, exam unchanged from yesterday. [facility] Labs within last 24 hours- BMP: Recent Labs 08/05/23 0343 08/05/23 1505 08/06/23 0425 08/06/23 16508/07/23 0313 NA 143 141 145 144 144 K 4.0 4.2 3.9 3.8 3.7 CL 105 102 104 101 101 CO2 29 30 33* 31* 33* BUN 74* 72* 71* 71* 70* CREATININE 1.09* 1.09* 1.11* 1.09* 1.11* CALCIUM 8.8 8.8 9.0 9.2 9.2 MG 2.1 2.0 2.2 -- -- PHOS 2.9 3.5 3.7 -- -- LFTs: Recent Labs 08/05/2334208/06/23 0425 08/07/23 0313 AST 17 19 22 ALT 12 12 13 PROT 5.8* 5.8* 6.1* ALBUMIN 3.5 3.7 3.9 BILITOT 0.5 0.6 0.7 ALKPHOS 45 36* 45 Glucose: Recent Labs 08/04/23 1515 08/04/23 1757 08/05/23 0343 08/05/23 0556 08/05/23 1126 08/05/23 1505 08/05/23 1720 08/05/23 2355 08/06/23 0425 08/06/23 0609 08/06/23 1146 08/06/23 1651 08/06/23 1806 08/07/23 0313 08/07/23 0522 GLUCOSE 208* -- 154* -- -- 207* -- -- 136* -- -- 149* -- 127* -- POCGLU -- < > -- 174* 127* -- 271* 210* -- 141* 107* -- 176* -- 82 < > = values in this interval not displayed. Procal: No results for input(s): "PROCAL" in the last 72 hours. CBC: Recent Labs 08/06/23 0444 08/06/23 1224 08/07/23 0313 WBC 4.5 8.5 7.0 HGB 7.0* 8.2* 8.6* HCT 22.4* 26.4* 27.9* PLT 119* 176 205 MCV 107.7* 107.8* 109.4* RDW 14.6 14.7 14.6 ABGs: No results for input(s): "PHART", "NFI6NMS", "PO2ART", "CFF4NPA", "SO2ART", "H0KQZCGT" in the last 72 hours. Lactic Acid: No results for input(s): "LACTATE" in the last 72 hours. INR: No results for input(s): "INR" in the last 72 hours. Cardiac Injury Profile: No results for input(s): "CKTOTAL", "CKMB", "TROPONINI" in the last 72 hours. Labs in Last 3 months: Lab Results Component Value Date INR 1.1 08/02/2023 Microbiology- Urine Cx: Lab Results Component Value Date URINECX Normal urogenital gaby present 07/30/2023 URINECX 50,000-90,000 CFU/mL Escherichia coli (A) 07/30/2023 Blood Cx: Lab Results Component Value Date BLOODCX No growth at 4 days 08/02/2023 BLOODCX No growth at 4 days 08/02/2023 Sputum Cx: Lab Results Component Value Date RESPCULT No growth of normal respiratory gaby. 08/01/2023 Gram Stain: Lab Results Component Value Date LABGRAM 08/01/2023 Few Polymorphonuclear leukocytes per low power field LABGRAM Few Epithelial cells per low power field 08/01/2023 LABGRAM No organisms seen 08/01/2023 PNA PCR: Lab Results Component Value Date HUMANMETAPNE Not Detected 08/01/2023 COVID19: No results found for: COVID19 Legionella Ag: Lab Results Component Value Date LEGIONELLAPN Not Detected 08/01/2023 Strep Ag: No results for input(s): "STREPPNEUMO" in the last 72 hours. Imaging- Assessment and Plan: Principal Problem: Severe sepsis (HCC) Assessment: Septic Shock secondary to Chronic Jose UTI ESBL ecoli bacteremia Rt ureteral calculus s/p ureteral stent 07/30 Choledocholithiasis Acute Hypoxic Respiratory Failure from rhino/enterovirus, LLL infiltrate Volume overload PHOEBE WHITLEY on CKD3a NSTEMI DM2 Macrocytic Anemia/thrombocytopenia Hx of Afib Hx of Neurogenic bladder with chronic jose Morbid Obesity Dementia/Alzheimer Hx HTN Plan: Patient afebrile hemodynamically stable, mentation improve, per family at 80-90 % of her baseline. S/p PICC Liine 08/05 plan to continue meropenem until 08/16/23. Blood Cultures 08/01 remain negative. ID Following Urology sing off but placed follow up 08/22/23 Remains asymptomatic with diet. Gen surg following, no plan for surgical intervention at this point. GI mentions possible ERCP if stone were to cause further issues. Stable on NC 4L, net - 5L will transition to bumex 1 mg PO BID for better bioavalability. Noted was on lasix 40 mg po BID. Cont BIPAP at night Whitley resolved Scr at baseline off 1.2- 1.5, risk of need for MH TEACHER/transplant 0.33% in next 2 years and 1.1% in next 10 years Blood sugar 82- 176, on ISS, Endo following Hgb/PLT stable, starting patient on B12 and folic acid pills Appears troponin was trending down, echo normal with mild Cont metoprolol, will restart apixaban and stop heparin drip Resuming dementia meds donepazil and zoloft Resuming home pain medications gabapentin. Hold on baclofen for now Holding on restarting lisinopril for now GI Prophylaxis: Pepcid IV DVT Prophylaxis: Full anticoagulation Disposition: ok for [facility] Critical Care Time: 35 min Total critical care time caring for this patient with life threatening, unstable organ failure, including direct patient contact, management of life support systems, review of data including imaging and labs, discussions with other team members and physicians, excluding procedures. Nutrition Assessment Type and Reason for Visit: Reassess Nutrition Recommendations/Plan: LASER PRINTING OPERATOR recommending: Regular diet with thin liquids Per MNT Protocol, liberalized diet to: Regular, [id number], 4 carbohydrate choices/60 g CHO per meal with double protein portions, +1800 mL fluid restriction Please record % meals consumed in flowsheet for most accurate nutrient intake assessment. Obtain updated actual bed scale weight as able for most accurate anthropometric data RDN to continue to monitor weekly: fluid accumulation, weight, skin integrity, trends in lab values, tolerance of PO, improvement in clinical status, discharge planning. Malnutrition Assessment: Malnutrition Status: At risk for malnutrition (Comment) (monitor ability to extubate and advance diet vs EN to begin) Context: Acute Illness Findings of the 6 clinical characteristics of malnutrition: Energy Intake: Unable to assess Weight Loss: No significant weight loss Body Fat Loss: No significant body fat loss Muscle Mass Loss: Mild muscle mass loss Clavicles (pectoralis & deltoids) Fluid Accumulation: Moderate to Severe Extremities Dry Cleaning Manager Strength: Not Performed Nutrition Assessment: 72 year old woman who presented with encephalopathy and septic shock secondary to UTI. Underwent s/p cystoscopy with ureteral stent placement 07/30. Remained intubated post procedure, passed SBTs 08/02, 08/03, and 08/04 and was extubated on 08/04. Previously meeting nutrition needs 08/01-08/03 via EN. Course has been complicated by incidental finding biliary ductal dilation and possible choledocholithias- GI and GenSurg evaluated, no plans for acute surgical intervention at this time. LASER PRINTING OPERATOR recs Regular Diet with thin liquids this morning. Eager to eat. Nephrology continues to follow for CKD stage IIIb and volume overload, continues on IV Lasix for diuresis. ID continues to follow and manage antibiotics: continues on merrem through 08/16/23 Estimated Daily Nutrient Needs: Energy Requirements Based On: Kcal/kg Weight Used for Energy Requirements: [place] Weight for Energy Calculation (kg): 57 kg Total Energy Requirements (kcals/day): 7328-3635 (22-25 kcal/kg IBW) Weight Used for Protein Requirements: [place] Weight in Kg Used for Protein Requirements: 57 kg Estimated Total Protein (g/day): 86-114 (1.5-2.0 g protein/kg IBW) Estimated Daily Total Fluid (ml/day): per MD Nutrition Related Findings: +I/O balance. Meds and labs reviewed. Extubated 08/04. +1 BLE and +1 Gen Edema. Alex score=12. Wound Type: Multiple, Pressure Injury, Stage III, Moisture Associate Skin Damage, Venous Stasis (+pink area/rash to left neck fold, mid-abdomen fold, left back fold. +MASD to bilateral buttocks. +Right lyons to VLU. +Stage III PU to right knee) Current Nutrition Therapies: Adult diet Regular; No Added Salt (3-4 gm); 4 carb choices (60 gm/meal); 1800 ml Current Oral Intake Average Meal Intake: NPO Average Supplements Intake: NPO Anthropometric Measures: Height: 165.1 cm (5' 5") Current Body Weight: 159 kg (350 lb) Weight Source: Not Specified (07/31/23) Admission Body Weight: 159 kg (350 lb 8.5 oz) (estimated) Usual Body Weight: 140 kg (308 lb 8 oz) (per [facility] Records: 303# April 2023; 299# may 2023; 311# June 2023; 308.5# 07/05/23) % Weight Change (Calculated): 13.5 [place] Body Weight (lbs) (Calculated): 125 lbs [place] Body Weight (Kg) (Calculated): 57 kg % [place] Body Weight (Calculated): 280 % BMI (kg/m2) (Calculated): 58.2 Weight Adjustment For: No Adjustment BMI Categories: Obese Class 3 (BMI 40.0 or greater) Nutrition Diagnosis: Increased nutrient needs related to acute injury/trauma as evidenced by (+UTI and POD#0 s/p cystoscopy with ureteral stent placement) Altered nutrition-related lab values related to cardiac dysfunction, endocrine dysfuntion as evidenced by lab values Nutrition Interventions: Nutrition Education/Counseling: Education not indicated Coordination of Nutrition Care: Speech Therapy, Continue to monitor while inpatient, Feeding Assistance/Environment Change Plan of Care discussed with: Multi-disciplinary rounds; LASER PRINTING OPERATOR and patient Goals: Previous Goal Met: Progressing toward Goal(s) Goals: within 2 days, PO intake 50% or greater Nutrition Monitoring and Evaluation: Behavioral-Environmental Outcomes: None Identified Food/Nutrient Intake Outcomes: Food and Nutrient Intake, Diet Advancement/Tolerance Physical Signs/Symptoms Outcomes: Biochemical Data, GI Status, Meal Time Behavior, Hemodynamic Status, Fluid Status or Edema, Nausea or Vomiting, Nutrition Focused Physical Findings, Skin, Weight Discharge Planning: Continue current diet Angie Ramirez RDN, LDN, Contact: *[phone] [facility] Progress Note Subjective/ 72 y.o. year old female who we are seeing in consultation for volume management. Extubated 08/04 NAEON Alert x1 Urine output good Good response to IV diuresis +albumin Remain on lasix gtt BP stable. ROS otherwise negative. No change in PFSH. Objective/ Vitals: 08/06/23 0733 08/06/23 0735 08/06/23 0802 08/06/23 0937 BP: 126/74 130/76 116/53 BP Location: Left arm Patient Position: Lying Pulse: 81 67 80 Resp: (!) 11 13 Temp: 37 C (98.6 F) TempSrc: Oral SpO2: 100% 99% 100% Weight: Height: 1.651 m (5' 5") 24HR INTAKE/OUTPUT: Intake/Output Summary (Last 24 hours) at 08/06/2023 1049 Last data filed at 08/06/2023 0951 Gross per 24 hour Intake 1585.09 ml Output 3950 ml Net -2364.91 ml Constitutional: ill appearing, NAD, alert x1. Head: AT NC Neck: No JVD, no thyromegaly Cardiovascular: S1, S2 without m/r/g Respiratory: faint crackles auscultated throughout Abdomen: soft, nt Ext: 1+ B/L pitting LE edema, no tremor. Skin: BLE redness/ulcerations albumin human, 25 g, IntraVENous, q8h ammonium lactate, , Topical, BID [Held by provider] apixaban, 5 mg, Oral, BID [Held by provider] ascorbic acid, 250 mg, Oral, Daily [Held by provider] atorvastatin, 20 mg, Oral, Nightly [Held by provider] baclofen, 5 mg, Oral, TID bisacodyl, 10 mg, Rectal, BID Diclofenac Sodium, 4 g, Topical, BID [Held by provider] donepezil, 10 mg, Oral, Nightly famotidine (Pepcid) 20 mg in sodium chloride (PF) 0.9 % 10 mL injection, 20 mg, IntraVENous, BID [Held by provider] gabapentin, 200 mg, Oral, TID insulin NPH, 25 Units, SubCUTAneous, q12h insulin regular, 0-6 Units, SubCUTAneous, q6h [Held by provider] insulin regular, 6 Units, SubCUTAneous, q6h ipratropium-albuterol, 3 mL, Nebulization, TID [Held by provider] lisinopril, 10 mg, Oral, Daily meropenem, 2,000 mg, IntraVENous, q8h miconazole, , Topical, BID nystatin, , Topical, BID Petrolatum, , Topical, BID [Held by provider] senna-docusate sodium, 2 tablet, Oral, BID [Held by provider] sertraline, 50 mg, Oral, Daily sodium chloride 0.9%, 10 mL, IntraVENous, 2 times per day sodium chloride, 4 mL, Nebulization, BID stomahesive in petrolatum, , Topical, q8h furosemide (Lasix) 100 mg in sodium chloride 0.9 % 100 mL (1 mg/mL) infusion, 5 mg/hr, Last Rate: 5 mg/hr (08/06/23 0019) heparin, 5-30 Units/kg/hr, Last Rate: 10 Units/kg/hr (08/06/23 0603) PRN medications: [Held by provider] acetaminophen OR [Held by provider] acetaminophen, dextrose, dextrose, glucagon (rDNA), glucose, heparin, heparin, labetalol, ondansetron ODT OR ondansetron, polyethylene glycol (PEG) 3350, sodium chloride 0.9% Data/ Recent Labs 08/04/23 1515 08/05/23 0343 08/06/23 0444 WBC 5.1 6.0 4.5 HGB 7.5* 7.8* 7.0* HCT 23.8* 24.1* 22.4* MCV 106.7* 106.2* 107.7* PLT 88* 103* 119* Recent Labs 08/05/23 0343 08/05/23 1505 08/06/23 0425 NA 143 141 145 K 4.0 4.2 3.9 CL 105 102 104 CO2 29 30 33* GLUCOSE 154* 207* 136* PHOS 2.9 3.5 3.7 MG 2.1 2.0 2.2 BUN 74* 72* 71* CREATININE 1.09* 1.09* 1.11* Assessment/ CKD3b (N18.32) Volume overload (E87.70) Acute hypoxic respiratory failure (J96.01) Septic shock, resolved (R65.21) UTI DMT2 Anemia Plan/ Diuresing well Renal function tolerating diuresis Agree with ICU plan to dc lasix gtt and transition to IVP diuresis Lytes overall stable UOP excellent Monitor for hypernatremia 2/2 excessive UOP Low threshold for hypotonic D5W D/w RN and Dr Garner ICU Will follow Thank you for the consult and the opportunity to participate in the care of this patient. Please do not hesitate to call with any questions or concerns. Ana Frost APRN, MANAGER PRESENTATION [facility], [facility] [phone] office Associated attestation - Sarita Wray MD - 08/06/2023 6:40 PM EDT I have reviewed the above assessment and plan with the HAND I THERMAL CUTTER. I agree with above note. Department of Internal Medicine Division of Endocrinology, Diabetes, & Metabolism Endocrinology Note Patient Name: Salazar Coyle : 1950 AGE: 72 y.o. Room/Bed: [facility] Admission Date: 07/30/2023 Visit Date: 08/06/2023 Reason for Endocrine Consult: Hyperglycemia requiring insulin GGT, on steroids and tube feeds Provider/Team Requesting Consult: Dr. Del Real PCP: Paige Rivera DO Outpt Desktop Support Associate: Yes Dr. Woods ASSESSMENT: Type II Diabetes with hyperglycemia Urosepsis versus pyelonephritis Severe sepsis History of ESBL bacteremia requiring long dose meropenem History left UPJ calculus Chronic Jose with neurogenic bladder Leukocytosis Metabolic acidosis Lactic acidosis NAGMA CKD stage IIIb WHITLEY Hypertension Hyperlipidemia PHOEBE Noncompliance to CPAP Chronic lower extremity wounds Chronic venous stasis PLAN: Decrease NPH to 22 units q 12 hours initiate Humalog 5 units TID with meals Initiate humalog low dose sliding scale TID with meals Stop Insulin Regular as patient now on diet. Patient started on carb diet today. ICU goal <180 GMF goal <150 POCT BG ACHS Hypoglycemia management per protocol Carb controlled diet ANTICIPATED ENDOCRINE HOME GOING RECOMMENDATIONS: Optimized for Discharge from Endocrine standpoint: No Home Going Endocrine Rx Recommendations-- Lantus -dose to be determined Humalog -dose to be determined Outpt Follow Up-- Clinical clinic endocrinology SUBJECTIVE/HPI: CHIEF COMPLAINT: Chief Complaint Patient presents with Altered Mental Status 72 YO female w/PMH dementia, T2DM, morbid obesity, PHOEBE, chronic Jose 2/2 neurogenic bladder, Anxiety and chronic pain. OF note, patient admitted May 2022 w/ ESBL E. Coli bacteremia with left UPJ calculus s/p stent and extended IV meropenem. Patient did require laser lithotripsy and stent exchange at this time. Patient arrived to [facility] ED for altered mental status. Cystoscopy, left ureteral stent placement completed 07/31/2023 Type of DM: 2 Onset of DM: Home DM Medication Regimen: Lantus 10 units nightly Humalog 3 units 3 times daily before meals DM control (last A1c/glucose data): Lab Results Component Value Date HGBA1C 9.0 (H) 07/30/2023 Today- Diet advanced today to carb control Blood sugars tightly controlled. Patient reports thirst and small appetite BGL reviewed and listed below. Glucose Date/Time Value Ref Range Status 08/06/2023 06:09 AM 141 (H) 70 - 100 mg/dL Final 08/05/2023 11:55 PM 210 (H) 70 - 100 mg/dL Final 08/05/2023 05:20 PM 271 (H) 70 - 100 mg/dL Final 08/05/2023 11:26 AM 127 (H) 70 - 100 mg/dL Final 08/05/2023 05:56 AM 174 (H) 70 - 100 mg/dL Final 08/04/2023 11:46 PM 202 (H) 70 - 100 mg/dL Final Review of Systems Constitutional: Positive for appetite change and fatigue. Respiratory: Negative for shortness of breath. Cardiovascular: Positive for leg swelling. Negative for chest pain and palpitations. Gastrointestinal: Negative for abdominal pain. Endocrine: Negative for polydipsia, polyphagia and polyuria. Skin: Positive for wound. Neurological: Positive for weakness. ROS negative except for those mentioned in HPI. OBJECTIVE: Vitals: 08/06/23 0733 08/06/23 0735 08/06/23 0802 08/06/23 0937 BP: 126/74 130/76 116/53 BP Location: Left arm Patient Position: Lying Pulse: 81 67 80 Resp: (!) 11 13 Temp: 37 C (98.6 F) TempSrc: Oral SpO2: 100% 99% 100% Weight: Height: 5' 5" (1.651 m) Physical Exam Vitals and nursing note reviewed. Constitutional: General: She is not in acute distress. Appearance: She is obese. She is ill-appearing. She is not toxic-appearing or diaphoretic. HENT: Head: Normocephalic. Nose: Nose normal. Mouth/Throat: Mouth: Mucous membranes are moist. Eyes: Conjunctiva/sclera: Conjunctivae normal. Cardiovascular: Rate and Rhythm: Normal rate and regular rhythm. Pulses: Normal pulses. Heart sounds: Normal heart sounds. No murmur heard. Pulmonary: Effort: Pulmonary effort is normal. No respiratory distress. Breath sounds: Normal breath sounds. Musculoskeletal: General: Swelling present. Right lower leg: Edema present. Left lower leg: Edema present. Skin: General: Skin is warm and dry. Neurological: General: No focal deficit present. Mental Status: She is alert. Psychiatric: Mood and Affect: Mood normal. Behavior: Behavior normal. 24 hour intake/output: Intake/Output Summary (Last 24 hours) at 08/06/2023 1031 Last data filed at 08/06/2023 0951 Gross per 24 hour Intake 1585.09 ml Output 3950 ml Net -2364.91 ml Diet: No diet orders on file Medications (as per EMR): HomeMeds: Current Outpatient Medications Medication Instructions acetaminophen (TYLENOL) 325 mg, Oral, 3 times daily apixaban (ELIQUIS) 5 mg, Oral, 2 times daily ascorbic acid (VITAMIN C) 250 mg, Oral, Daily atorvastatin (LIPITOR) 20 mg, Oral, Daily baclofen (Lioresal) 5 MG tablet 1 tablet, Oral, 3 times daily Calcium Carbonate-Vitamin D ([place] Calcium/D) 500-5 MG-MCG tablet 1 tablet, Oral, Daily Diclofenac Sodium (VOLTAREN) 4 g, Topical, 2 times daily donepezil (ARICEPT) 10 mg, Oral, Nightly furosemide (LASIX) 40 mg, Oral, 2 time daily gabapentin (NEURONTIN) 200 mg, Oral, 3 times daily insulin glargine (LANTUS) 10 Units, SubCUTAneous, Nightly Insulin Lispro (HUMALOG) 3 Units, SubCUTAneous, 3 times daily with meals lisinopril 10 mg, Oral, Daily nystatin (Mycostatin) [id number] UNIT/GM powder No dose, route, or frequency recorded. senna-docusate ([place]-Colace) 8.6-50 MG tablet 100 tablets, Oral, Every 24 hours sertraline (ZOLOFT) 50 mg, Oral, Daily Scheduled Meds:albumin human, 25 g, IntraVENous, q8h ammonium lactate, , Topical, BID [Held by provider] apixaban, 5 mg, Oral, BID [Held by provider] ascorbic acid, 250 mg, Oral, Daily [Held by provider] atorvastatin, 20 mg, Oral, Nightly [Held by provider] baclofen, 5 mg, Oral, TID bisacodyl, 10 mg, Rectal, BID Diclofenac Sodium, 4 g, Topical, BID [Held by provider] donepezil, 10 mg, Oral, Nightly famotidine (Pepcid) 20 mg in sodium chloride (PF) 0.9 % 10 mL injection, 20 mg, IntraVENous, BID [Held by provider] gabapentin, 200 mg, Oral, TID insulin NPH, 25 Units, SubCUTAneous, q12h insulin regular, 0-6 Units, SubCUTAneous, q6h insulin regular, 6 Units, SubCUTAneous, q6h ipratropium-albuterol, 3 mL, Nebulization, TID [Held by provider] lisinopril, 10 mg, Oral, Daily meropenem, 2,000 mg, IntraVENous, q8h miconazole, , Topical, BID nystatin, , Topical, BID Petrolatum, , Topical, BID [Held by provider] senna-docusate sodium, 2 tablet, Oral, BID [Held by provider] sertraline, 50 mg, Oral, Daily sodium chloride 0.9%, 10 mL, IntraVENous, 2 times per day sodium chloride, 4 mL, Nebulization, BID stomahesive in petrolatum, , Topical, q8h Continuous Infusions:furosemide (Lasix) 100 mg in sodium chloride 0.9 % 100 mL (1 mg/mL) infusion, 5 mg/hr, Last Rate: 5 mg/hr (08/06/23 0019) heparin, 5-30 Units/kg/hr, Last Rate: 10 Units/kg/hr (08/06/23 06) PRN Meds:PRN medications: [Held by provider] acetaminophen OR [Held by provider] acetaminophen, dextrose, dextrose, glucagon (rDNA), glucose, heparin, heparin, labetalol, ondansetron ODT OR ondansetron, polyethylene glycol (PEG) 3350, sodium chloride 0.9% Diagnostic Workup: I reviewed pertinent Laboratory results, Radiographic results, and Other Clinical Notes at the time of today's encounter. Labs: No components found for: "LABA1C" No components found for: "EAG" Lab Results Component Value Date NA 145 08/06/2023 K 3.9 08/06/2023 CL 104 08/06/2023 CO2 33 (H) 08/06/2023 BUN 71 (H) 08/06/2023 CREATININE 1.11 (H) 08/06/2023 GLUCOSE 136 (H) 08/06/2023 CALCIUM 9.0 08/06/2023 No results found for: "CHLPL", CHOL No results found for: "TRIG" No results found for: "HDL" No results found for: "LDLCALC" No results found for: "VLDL" No results found for: "CHOLHDLRATIO" No results found for: "ZEBU57HWA" No results found for: "TSH", "X8GKBXF", "D8QRRCQ", "THYROIDAB" Radiology reportsas per the Radiologist Radiology: POCT glucose meter Result Date: 07/31/2023 Performed by: Bentley Mora, [address] [place] [address] CLIA ID: [id number] POCT glucose meter Result Date: 07/31/2023 Performed by: Bentley Mora, [address] [place] [address] CLIA ID: [id number] POCT glucose meter Result Date: 07/31/2023 Performed by: Bentley Mora, [address] [place] [address] CLIA ID: [id number] POCT glucose meter Result Date: 07/31/2023 Performed by: [facility], [address] [place] [address], [place] [address] CLIA ID: [id number] POCT glucose meter Result Date: 07/31/2023 Performed by: [facility] [place] [facility], [address] [place] [address], [place] [address] CLIA ID: [id number] POCT glucose meter Result Date: 07/31/2023 Performed by: [facility] [place] [facility], [address] [place] [address], [place] [address] CLIA ID: [id number] POCT glucose meter Result Date: 07/31/2023 Performed by: [facility] [place] [facility], [address] [place] [address], [place] [address] CLIA ID: [id number] POCT glucose meter Result Date: 07/31/2023 Performed by: [facility] [place] [facility], [address] [place] [address], [place] [address] CLIA ID: [id number] POCT glucose meter Result Date: 07/31/2023 Performed by: [facility] [place] [facility], [address] [place] [address], [place] [address] CLIA ID: [id number] POCT glucose meter Result Date: 07/31/2023 Performed by: [facility] [place] [facility], [address] [place] [address], [place] [address] CLIA ID: [id number] POCT glucose meter Result Date: 07/31/2023 Performed by: [facility] [place] [facility], [address] [place] [address], [place] [address] CLIA ID: [id number] POCT glucose meter Result Date: 07/31/2023 Performed by: [facility] [place] [facility], [address] [place] [address], [place] [address] CLIA ID: [id number] POCT glucose meter Result Date: 07/31/2023 Performed by: [facility] [place] [facility], [address] [place] [address], [place] [address] CLIA ID: [id number] Transthoracic echocardiogram (TTE) complete with contrast, bubble, strain, and 3D PRN Result Date: 07/31/2023 Left Ventricle: Left ventricle size is normal. Mildly increased wall thickness. Normal left ventricular systolic function. EF by 2D Simpsons Biplane is 63%. Normal wall motion. Right Ventricle: Right ventricle size is normal. Normal systolic function. Aortic Valve: Trileaflet. No cusp thickening. Mildly calcified cusps. Mild annular calcification. No regurgitation. Valve appears to open well velocities suggest Mild stenosis of the aortic valve. AV mean gradient is 9 mmHg. AV area by continuity VTI is 2.3 cm2. Left Atrium: Left atrium is dilated. POCT glucose meter Result Date: 07/31/2023 Performed by: [facility], [address] [place] [address] CLIA ID: [id number] POCT glucose meter Result Date: 07/31/2023 Performed by: [facility], [address] [place] [address] CLIA ID: [id number] POCT glucose meter Result Date: 07/31/2023 Performed by: [facility], [address] [place] [address] CLIA ID: [id number] POCT glucose meter Result Date: 07/31/2023 Performed by: [facility] [place] [facility], [address] [place] [address] CLIA ID: [id number] FL GUIDANCE OR USE ONLY - NON RESULTABLE Result Date: 07/31/2023 There is no interpretation needed for this exam. ECG 12 lead Sinus tachycardia IVCD, consider LBBB Electronically Signed On 07-31-2023 06:14:25 EDT by Emilie Nicole POCT glucose meter Result Date: 07/31/2023 Performed by: [facility], [address] [place] [address] CLIA ID: [id number] XR chest 1 view Result Date: 07/31/2023 Patient Name: SALAZAR COYLE : 1950 Exam Date/Time: 07/31/2023 04:56 Procedure: XR CHEST 1 VIEW Ordering Provider: DEL REAL CHELSEA Reason For Exam: verify ETT placement EXAMINATION: XR chest AP. EXAM DATE & TIME: 07/31/2023 4:56 AM EDT INDICATION: verify ETT placement ADDITIONAL INFORMATION: 72-year-old female presents for follow-up after intubation COMPARISON: Chest x-ray dated 07/31/2023 TECHNIQUE: Frontal view of the chest was obtained. FINDINGS: Lines/support devices: An endotracheal tube is present with its distal tip approximately 1.9 cm above the candy. Unchanged right internal jugular approach central venous catheter, terminating in the region of the cavoatrial junction. An NG/OG tube is present with its distal tip coursing subdiaphragmatically and beyond the [id number]. Cardiac leads project over the chest, somewhat limiting evaluation. Cardiomediastinal silhouette: The heart is slightly enlarged. Lungs/pleura: A small left pleural effusion is seen. Right pleural spaces are clear. No evidence of pneumothorax. Osseous structures: Degenerative changes of the spine and shoulders are seen. No acute osseous abnormality is demonstrated. Other findings: None. 1. Small left pleural effusion. Underlying consolidation is not excluded. 2. Lines and support devices as above. Report Dictated on Electronically Signed By: Catarino Sue MD Electronically Signed Date/Time: 07/31/2023 5:05 AM EDT POCT glucose meter Result Date: 07/31/2023 Performed by: [facility], [address] [place] [address] CLIA ID: [id number] POCT glucose meter Result Date: 07/31/2023 Performed by: [facility], [address] [place] [address] CLIA ID: [id number] XR chest 1 view Result Date: 07/31/2023 [facility] : 1950 [id number] Exam Date/Time: 07/31/2023 01:43 Procedure: XR CHEST 1 VIEW Ordering Provider: DEL REAL CHELSEA Reason For Exam: PROCEDURES PORTABLE CHEST CLINICAL INDICATION: PROCEDURES TECHNIQUE: Portable AP COMPARISON: 07/30/2023 FINDINGS: Right IJ central line tip projects over the SVC. No focal consolidation or pulmonary edema. No pleural effusions or pneumothorax. The heart demonstrates normal size. Calcification of the thoracic aorta is noted. Degenerative change of the thoracic spine is noted. No focal consolidation or pulmonary edema. Report Dictated on Electronically Signed By: Bashir Barnes MD Electronically Signed Date/Time: 07/31/2023 2:[address] abdomen pelvis wo IV contrast Result Date: 07/31/2023 Patient Name: SALAZAR COYLE : 1950 [facility]#: [id number] Exam Date/Time: 07/31/2023 00:27 Procedure: CT ABDOMEN PELVIS WO IV CONTRAST Ordering Provider: CALDERÓN SHANNON Reason For Exam: UTI, recurrent/complicated (Female) EXAMINATION: CT of the abdomen and pelvis without contrast. EXAM DATE & TIME: 07/31/2023 12:27 AM EDT INDICATION: UTI, recurrent/complicated (Female) ADDITIONAL INFORMATION: 72-year-old female with a provided history of UTI presents for evaluation COMPARISON: CT abdomen pelvis dated 06/10/2022 LIMITATIONS: Evaluation of the vasculature as well as the solid and hollow viscera is limited due to the lack of intravenous and oral contrast. Additional limitations are present secondary to portions of the patient outside the [id number] and associated beam hardening artifact. TECHNIQUE: Contiguous multiplanar 3 mm images were obtained from the levels of the lung bases through the pelvis without contrast. Images were reformatted in coronal and sagittal projections using the raw CT data and were interpreted in conjunction with the axial images to render the findings listed below. Dose reduction was employed with automated exposure control. FINDINGS: Included images of the lower thorax: There is bibasilar scarring/atelectasis. No focal lung consolidation or pleural effusion. Stable 3 mm right lower lobe pulmonary nodule (series 4, image 7). Previously identified 1.3 cm nodule is not included on the current examination. Hepatobiliary: Unremarkable liver without biliary dilation evident. Cholelithiasis is seen. Spleen: Unremarkable. Pancreas: There is fatty atrophy of the pancreas. Adrenal glands: Unremarkable. Kidneys, ureters and bladder: There is an 8 mm left UPJ calculus with mild to moderate upstream hydronephrosis (HU = 327). Additional coarse, nonobstructing left renal calculi are noted. No evidence of right-sided hydronephrosis or nephrolithiasis. A Jose catheter is present within the urinary bladder, decompressing it and limiting evaluation. Abdominal and pelvic vasculature: Atherosclerotic vascular calcifications are present in the abdominal aorta and its proximal major branches. Gastrointestinal: No evidence of obstruction. No pericecal inflammation to suggest acute appendicitis. Peritoneum, retroperitoneum and mesentery: No free fluid or free air. Inflammatory changes surround the left kidney. Lymph nodes: No abdominal or pelvic lymphadenopathy is evident. Solid pelvic viscera: The uterus appears surgically absent. Visualized musculoskeletal structures: No acute fracture or destructive osseous lesion is identified. Multilevel spondylosis is present. The bones are diffusely osteopenic. 1. Study limited as above. Allowing for this, there is a left UPJ calculus with mild to moderate upstream hydronephrosis. 2. Stable 3 mm right lower lobe pulmonary nodule. Recommendations for follow-up as below. Previously noted 1.3 cm pulmonary nodule is not included on the current examination. 3. Additional chronic findings as above. Updated Fleischner Society Guidelines for Management of Small Pulmonary Nodules Detected on CT (2017) SOLITARY NODULE: LOW RISK PATIENT < 6 mm - No follow-up 6 - 8 mm - 6 - 12 month follow-up, then consider 18 - 24 months > 8 mm - PET/CT, biopsy, or 3 month follow-up SOLITARY NODULE: HIGH RISK PATIENT < 6 mm - Optional 6 - 12 months follow-up (suspicious morphology or upper lobe) 6 - 8 mm - 6 - 12 month follow-up, then 18 - 24 months > 8 mm - PET/CT, biopsy, or 3 month follow-up MULTIPLE NODULES: LOW RISK PATIENT (Use most suspicious) All < 6 mm - No follow-up Any > 6 mm - 3 - 6 month follow-up, then 18 - 24 months MULTIPLE NODULES: HIGH RISK PATIENT (Use most suspicious) All < 6 mm - No follow-up Any > 6 mm - 3 - 6 month follow-up, then 18 - 24 months Report Dictated on Electronically Signed By: Catarino Sue MD Electronically Signed Date/Time: 07/31/2023 2:35 AM EDT POCT glucose meter Result Date: 07/31/2023 Performed by: [facility], [address] [place] [address] CLIA ID: [id number] ECG 12 lead Sinus or ectopic atrial rhythm Left bundle branch block Consider anterolateral infarct Compared to ECG 03/13/2021 22:47:47 Ectopic atrial rhythm now present Left bundle-branch block now present Sinus rhythm no longer present Intraventricular conduction delay no longer present T-wave abnormality no longer present Myocardial infarct finding still present Electronically Signed On 07-31-2023 02:00:48 EDT by Paige Flores POCT glucose meter Result Date: 07/31/2023 Performed by: [facility], [address] [place] [address], [facility] [address] CLIA ID: [id number] POCT glucose meter Result Date: 07/31/2023 Performed by: [facility] [place] [facility], [address] [place] [address], [place] [address] CLIA ID: [id number] POCT glucose meter Result Date: 07/31/2023 Performed by: [facility] [place] [facility], [address] [place] [address], [place] [address] CLIA ID: [id number] POCT arterial blood gas Result Date: 07/31/2023 Performed by: [facility] [place] [facility], [address] [place] [address], [place] [address] CLIA ID: [id number] POCT glucose meter Result Date: 07/30/2023 Performed by: [facility] [place] [facility], [address] [place] [address], [place] [address] CLIA ID: [id number] POCT glucose meter Result Date: 07/30/2023 Performed by: [facility] [place] [facility], [address] [place] [address], [place] [address] CLIA ID: [id number] POCT venous blood gas Result Date: 07/30/2023 Performed by: [facility] [place] [facility], [address] [place] [address], [place] [address] CLIA ID: [id number] POCT glucose meter Result Date: 07/30/2023 Performed by: [facility] [place] [facility], [address] [place] [address], [facility] [address] CLIA ID: [id number] CT head wo IV contrast Result Date: 07/30/2023 Patient Name: [facility]AZAR COYLE : 1950 [id number] Exam Date/Time: 07/30/2023 14:19 Procedure: CT HEAD WO IV CONTRAST Ordering Provider: LEMON JAY Reason For Exam: Mental status change, unknown cause Indication: Mental status change Comparison date: 06/09/2022 FINDINGS: Dose reduction was employed with automated exposure control.3 mm unenhanced imaging of the brain performed. Images viewed in multiple orthogonal planes. Acute findings: No convincing acute ischemia or infarct, mass effect or midline shift, or hemorrhage. Bony structures:Unremarkable as seen. Orbits within normal limits, limited lack of contrast. Review of the paranasal sinuses shows stable right maxillary fluid-filled partially calcified structure etiology uncertain.. No acute brain process identified. Report Dictated on Electronically Signed By: Carlos Martinez MD Electronically Signed Date/Time: 07/30/2023 2:51 PM EDT XR chest 1 view Result Date: 07/30/2023 Patient Name: SALAZAR COYLE : 1950 [facility]#: [id number] Exam Date/Time: 07/30/2023 14:01 Procedure: XR CHEST 1 VIEW Ordering Provider: LEMON JAY Reason For Exam: ALTERED MENTAL STATUS EXAM TYPE: RADIOLOGIC EXAMINATION, CHEST, SINGLE VIEW FRONTAL (CXR SINGLE VIEW) EXAM DATE AND TIME: 07/30/2023 2:01 PM EDT INDICATION: Altered mental status COMPARISON: 06/10/2022 TECHNIQUE: A single frontal view of the thorax was obtained and reviewed. Special views: None. 1. Lines/Tubes/Devices/Hardware: Leads noted. Please confirm position and function of any catheters or attempted catheters clinically. 2. Lungs: No convincing acute process.. Limited due to portable technique. Consider follow-up with PA and lateral chest for persistent symptoms. 3. Pleura: No significant effusion. No significant pneumothorax. 4. Heart and mediastinum: Limited due to technique. 5. Upper abdomen: No acute process seen. 6. Thorax:No acute bony process Report Dictated on Electronically Signed By: Carlos Martinez MD Electronically Signed Date/Time: 07/30/2023 2:03 PM EDT POCT venous blood gas Result Date: 07/30/2023 Performed by: [facility], [address] [place] [address] CLIA ID: [id number] POCT glucose meter Result Date: 07/30/2023 Performed by: [facility], [address] [place] [address] CLIA ID: [id number] History/Other: Past Medical History: Past Medical History: Diagnosis Date A-fib (CMS/HCC) (HCC) Anemia Diabetes (HCC) Lymphedema Obesity Past Surgical History: History reviewed. No pertinent surgical history. Allergy(ies): Allergies Allergen Reactions Ertapenem Patient tolerated July 2022 Tolerated meropenem August 2023 Family History: No family history on file. Social History: Social History Tobacco Use Smoking status: Never Smokeless tobacco: Never Vaping Use Vaping Use: Never used Substance Use Topics Alcohol use: Never Drug use: Never I spent total time 35 minutes reviewing previous notes, test results, and face to face with the patient discussing the diagnosis and importance of compliance with the treatment plan as well as documenting on the day of the visit. Electronically signed by ZINA Barrett CNP 08/06/2023 10:31 AM Portions of the information within this encounter were entered using an electronic dictation system. Best attempts were made to edit/proofread the information prior to note completion. Despite the review of information, some errors may remain. If there are questions related to the information contained within the note please contact the signing physician directly. Images from the original note were not included. Speech-Language Pathology SPEECH LANGUAGE PATHOLOGY [facility] Bedside Swallow Evaluation Patient Name: Salazar Coyle Evaluation Date: 08/06/2023 Date of : 1950 Admission Date: 07/30/2023 1:00 PM Age: 72 y.o. Room/Bed: / A IMPRESSION: No s/s oropharyngeal dysphagia. No overt clinical s/s pulmonary compromise with PO. Risk factors for aspiration include recent intubation-07/29-08/04, sepsis. RECOMMENDATION: Recommend Regular solids and Thin liquids as tolerate and meds as tolerated and the following precautions: - Upright positioning for all PO intake - single bites Pt would benefit from skilled acute LASER PRINTING OPERATOR services to address assess prandial tolerance. Frequency: 2 days/wk for 1 week Barriers: Confusion Prognosis: good D/C Recommendations: to be determined, do not suspect further follow up. Subjective Patient alert and cooperative. Seen semi-upright in bed (unable to tolerate most upright d/t leg pain). Answers all basic questions with strong vocal quality. Follows all basic commands. No visitors at bedside. Spoke with MATHEUS Xiao who cleared pt to be evaluated. Dysphagia History: No history of LASER PRINTING OPERATOR services in EMR with retrospective chart review Baseline Diet: Regular thin at [facility] Current Diet: Dietary Orders (From admission, onward) Start Ordered 08/06/23 1303 Adult diet Regular; No Added Salt (3-4 gm); 4 carb choices (60 gm/meal); 1800 ml Diet effective now Comments: Double proteins Question Answer Comment Diet type Regular Sodium restriction: No Added Salt (3-4 gm) Carbohydrate restriction: 4 carb choices (60 gm/meal) Dietary fluid restriction / 24h: 1800 ml 08/06/23 1303 Tube Feeding: no Tracheostomy: no Recent Chest Xray/CT of Chest: XR chest 1 view 08/05/2023 Impression No significant change when compared with the previous study. Report Dictated on Electronically Signed By: Paige Browne MD Electronically Signed Date/Time: 08/05/2023 8:12 AM EDT Oxygen: Oxygen Therapy: Supplemental oxygen O2 Delivery Method: Nasal cannula O2 Flow Rate (L/min): 4 L/min Past Medical History: Past Medical History: Diagnosis Date A-fib ([facility]) ([facility]) Anemia Diabetes ([facility]) Lymphedema Obesity Past Surgical History: History reviewed. No pertinent surgical history. Admission Diagnosis: Patient Active Problem List Diagnosis Date Noted Edema 04/11/2021 Severe sepsis ([facility]) 07/30/2023 Radicular pain in right arm 01/08/2023 Ureteropelvic junction calculus 08/07/2022 WHITLEY (acute kidney injury) ([facility]) 08/07/2022 Chronic venous stasis 08/07/2022 Inflammatory reaction due to indwelling ureteral stent, initial encounter ([facility]) 08/02/2022 Septic shock ([facility]) 06/09/2022 Hypertension 04/15/2021 Hyperlipemia 04/15/2021 Cognitive decline 04/15/2021 Morbid obesity with BMI of 60.0-69.9, adult ([facility]) 04/15/2021 Chronic indwelling Jose catheter 04/15/2021 Foot ulcer ([facility]) 04/13/2021 Wounds, multiple 04/11/2021 PAF (paroxysmal atrial fibrillation) ([facility]) 04/11/2021 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 ([facility]) 04/11/2021 Hyperglycemia 04/11/2021 CKD (chronic kidney disease) 04/11/2021 Asymptomatic bacteriuria 04/11/2021 Anemia 04/11/2021 Bladder spasm 03/08/2021 Type 2 diabetes mellitus with hyperglycemia ([facility]) 03/08/2021 Degenerative disc disease, cervical 03/08/2021 Chronic pain 03/08/2021 Osteoarthrosis 03/08/2021 Recurrent UTI 03/08/2021 Cerebrovascular accident ([facility]) 03/08/2021 History of Present Illness: 72-year-old female with history of dementia, A-fib on Eliquis, DMT2, PHOEBE, morbid obesity, chronic Jose secondary to neurogenic bladder, chronic pain, anxiety, and admission 05/2022 with ESBL E. coli bacteremia with left UPJ calculus s/p stent and extended meropenem who presented with acute encephalopathy requiring intubation, admitted with septic shock secondary to UTI, left hydronephrosis, s/p cystoscopy with ureteral stent placement 07/30. Patient Complaint: "I am hungry" Pain: Pain in lower extremities when tried to position most upright. PPE Worn: surgical mask, gloves Objective Bedside swallow eval completed. Oral Motor Mechanism Functional. Difficulty to visualize full posterior palate. Questionable edema. Able to see velum elevate with phonation. Dentition: no upper dentition. Oral Hygiene: moist Swallowing Examination PO Trials - ice chips, (teaspoon) - thin liquid, (cup edge, straw, sequential swallows, fed by clinician) - puree, (teaspoon) - regular solids Oral Phase Pt with adequate oral receipt of PO trials. No anterior spillage. Mastication appeared complete, organized, and timely. Oral transit time appears WFL. No oral residue. Mild anterior loss with LASER PRINTING OPERATOR feeding. Timing of tipping the cup. Switched to a straw. No overt deficits with acceptance. Chewing of cracker was functional without dentures/upper dentition. Pharyngeal Phase Hyolaryngeal excursion clinically appears adequate and timely per palpation. 1-2 swallows palpated per bolus, likely indicative of adequate pharyngeal clearance. No overt clinical s/s airway penetration as evidenced by no cough, no throat clear, and no change in vocal quality. Education Education Given: diet recommendations Given To: patient Response: verbalizes understanding Goals Patient Stated Goal: To get a drink. Encounter Problems Encounter Problems (Active) Swallowing Patient will tolerate recommended food and liquid consistencies without clinical signs and symptoms of aspirations Start: 08/06/23 Expected End: 08/13/23 Therapy Time LASER PRINTING OPERATOR Individual Minutes Time In: 1005 Time Out: 1021 Minutes: 16 NADIRA [facility] - Surgery [facility] Physicians Surgery Patient Name: Salazar Coyle Date: 08/06/2023 Patient seen and examined by myself and I agree with LEONIDAS note below Patient now extubated and resting in bed and appears comfortable No abdominal complaints Abdomen obese soft nontender nondistended Labs and imaging reviewed Assessment /Plan: Urosepsis clinically resolving Incidental finding possible choledocholithiasis remains asymptomatic No indication for surgical intervention at this time Follow-up per GI regarding MRCP versus ERCP Overall, no acute surgical issues and none anticipated this hospitalization and surgery will sign off. Available if needed. Thanks Patient counseled on risks,benefits, and alternatives of treatement plan at length. Patient states an understanding and willingness to proceed with plan. I personally saw and evaluated the patient. I reviewed and agree with the LEONIDAS's documentation. I provided a substantive portion of the care of this patient. I personally performed the (MDM) for this encounter. I discussed the patient's condition and treatment options with them. I have also reviewed and agree with the past medical, family and social history and care plan unless otherwise noted. All of the patient's questions were answered. This case represents moderate level care including chart review, care coordination and face to face encounter was spent discussing/counseling the patient regarding the care plan for this patient. The patient was seen and examined independently and relevant data reviewed by myself. A full chart review was performed. Adis Dukes MD [facility] General Surgery 1:22 PM 08/06/2023 GENERAL SURGERY Progress Note PATIENT NAME: Salazar Coyle TODAY'S DATE: 08/06/2023 SUBJECTIVE: Follow up on choledocholithiasis. Patient seen this morning sitting up in bed, pleasant. She notes that she feels well without any abdominal pain. Patient denies fever/chills or nausea/vomiting. She endorses many bowel movements. Patient notes that would like to avoid surgery if possible and is agreeable to symptom monitoring and GI follow up. No overnight events noted, doing well s/p extubation. Pain controlled Yes Other Complaints No Flatus/BM/or Ostomy function yes OBJECTIVE: VITALS: BP 116/53 Pulse 80 Temp 37 C (98.6 F) (Oral) Resp 13 Ht 5' 5" (1.651 m) Wt (!) 350 lb (159 kg) SpO2 100% BMI 58.24 kg/m INTAKE/OUTPUT: I/O last 3 completed shifts: In: 3216.1 (20.3 mL/kg) [I.V.:1188.1 (7.5 mL/kg); NG/GT:1017; IV Piggyback:1011] Out: 5925 (37.3 mL/kg) [Urine:5925 (1 mL/kg/hr)] Weight: 158.8 kg I/O this shift: In: - Out: 325 [Urine:325] REVIEW OF SYSTEMS: Pertinent positives and negatives as per interval history section PHYSICAL EXAM: CONSTITUTIONAL: A&O x 3, LUNGS: Resp effort easy and unlabored, breath sounds normal CARDIOVASCULAR: RRR ABDOMEN: soft, nondistended, nontender, peritoneal signs absent MUSCULOSKELETAL: Normal range of motion NEUROLOGIC: Level of Alertness: alert PSYCHIATRIC: Speech is normal SKIN: Warm, dry, and intact Data: CBC: Recent Labs 08/04/23 1515 08/05/23 0343 08/06/23 0444 WBC 5.1 6.0 4.5 HGB 7.5* 7.8* 7.0* HCT 23.8* 24.1* 22.4* PLT 88* 103* 119* BMP: Recent Labs 08/05/23 0343 08/05/23 1505 08/06/23 0425 NA 143 141 145 K 4.0 4.2 3.9 CL 105 102 104 CO2 29 30 33* BUN 74* 72* 71* CREATININE 1.09* 1.09* 1.11* GLUCOSE 154* 207* 136* Hepatic: Recent Labs 08/04/23 0330 08/05/23 0343 08/06/23 0425 AST 15 17 19 ALT 13 12 12 BILITOT 0.5 0.5 0.6 ALKPHOS 51 45 36* ASSESSMENT AND PLAN: Ms. Coyle is a 72 y/o F who presented with ESBL ecoli bacteremia with recent abnormal CT - CT abd/pelvis with cholelithiasis, abnormal gallbladder distention, choledocholithiasis and extrahepatic duct dilation with CBD measuring 1.2 cm - US abdomen reviewed showing cholelithiasis and dilated CBD without choledocholithiasis but CBD distal portion obscured - Normal LFT's - Normal WBC 4.5 - GI consulted for evaluation of choledocholithiasis monitoring LFT's- signed off- reevaluation with MRCP at later time and possible ERCP if choledocholithiasis seen - Okay for diet from surgical standpoint once evaluated by LASER PRINTING OPERATOR - Medical mgmt per primary team Disposition: No acute surgical need at this time. Asymptomatic abdomen. Further workup of possible choledocholithiasis through GI and evaluation of timing for possible ERCP if indicated. Okay for diet when appropriate. Can follow up with surgery as outpatient. Patient counseled on risks, benefits, and alternatives of treatment plan today. Patient states an understanding and willingness to proceed with plan. [facility] Progress Note Name: Salazar Coyle : 1950(72 y.o.) Date: 08/06/23 Team: [facility] Attending: Reynold Garner MD Subjective: Hospital Summary: 72-year-old female with history of dementia, A-fib on Eliquis, DMT2, PHOEBE, morbid obesity, chronic Jose secondary to neurogenic bladder, chronic pain, anxiety, and admission 05/2022 with ESBL E. coli bacteremia with left UPJ calculus s/p stent and extended meropenem who presented with acute encephalopathy requiring intubation, admitted with septic shock secondary to UTI, left hydronephrosis, s/p cystoscopy with ureteral stent placement 07/30. Interval Events: NAEON, Remains pleasantly demented. Confused but following commands. Unclear if at baseline. Continued diuresis overnight. Denied any pain. Scheduled Meds:albumin human, 25 g, IntraVENous, q8h ammonium lactate, , Topical, BID [Held by provider] apixaban, 5 mg, Oral, BID [Held by provider] ascorbic acid, 250 mg, Oral, Daily [Held by provider] atorvastatin, 20 mg, Oral, Nightly [Held by provider] baclofen, 5 mg, Oral, TID bisacodyl, 10 mg, Rectal, BID Diclofenac Sodium, 4 g, Topical, BID [Held by provider] donepezil, 10 mg, Oral, Nightly famotidine (Pepcid) 20 mg in sodium chloride (PF) 0.9 % 10 mL injection, 20 mg, IntraVENous, BID [Held by provider] gabapentin, 200 mg, Oral, TID insulin NPH, 25 Units, SubCUTAneous, q12h insulin regular, 0-6 Units, SubCUTAneous, q6h insulin regular, 6 Units, SubCUTAneous, q6h ipratropium-albuterol, 3 mL, Nebulization, TID [Held by provider] lisinopril, 10 mg, Oral, Daily meropenem, 2,000 mg, IntraVENous, q8h miconazole, , Topical, BID nystatin, , Topical, BID Petrolatum, , Topical, BID [Held by provider] senna-docusate sodium, 2 tablet, Oral, BID [Held by provider] sertraline, 50 mg, Oral, Daily sodium chloride 0.9%, 10 mL, IntraVENous, 2 times per day sodium chloride, 4 mL, Nebulization, BID stomahesive in petrolatum, , Topical, q8h Continuous Infusions:furosemide (Lasix) 100 mg in sodium chloride 0.9 % 100 mL (1 mg/mL) infusion, 5 mg/hr, Last Rate: 5 mg/hr (08/06/2318) heparin, 5-30 Units/kg/hr, Last Rate: 10 Units/kg/hr (08/06/23602) Objective: Last Vitals: BP MAP 126/74 (08/06/23734) 90 (08/06/23734) Arterial BP MAP Temp 37 C (98.6 F) (08/06/23734) Pulse 81 (08/06/23734) Resp (!) 11 (08/06/23734) SpO2 100 % (08/06/23734) Weight (!) 159 kg (350 lb) (07/31/23 0905) BMI Body mass index is 58.24 kg/m . I/O: 08/04 0700 - 08/05 0659 In: 1645.1 [I.V.:781.1] Out: 4525 [Urine:4525] Ventilator: Ventilation Day(s): 2 Resp Rate (Set): 16 Vt (Set, mL): 400 mL FiO2 (%): 30 % PEEP/CPAP (cm H2O): 8 cm H20 Inspiratory Time (sec): 0.9 sec Oxygen Delivery: O2 Flow Rate (L/min): 4 L/min Invasive Lines / Tubes / Drains: CVC Triple Lumen 07/31/23 Non-tunneled Right Internal jugular (Active) Number of days: 6 Peripheral IV 07/30/23 Distal;Posterior;Right Forearm (Active) Number of days: 6 Peripheral IV 07/30/23 Anterior;Proximal;Right;Upper Arm (Active) Number of days: 6 Urethral Catheter Straight-tip 16 Fr. (Active) Number of days: 6 Central Line Indication: Inadequate peripheral access despite documented ultrasound attempts AND unable to place extended dwell PIV Jose Indications: Neurogenic bladder or chronic urinary retention Restraints: Restraints Non-Violent Or Non-Self Destructive Jul 31, 2023 4:41 Am Edt NA - patient is not restrained. Wounds: Wound/Incision 06/09/22 Traumatic Coccyx (Active) Date First Assessed/Time First Assessed: 06/09/22 1550 Present on Original Admission: Yes Primary Wound Type: Traumatic Wound Event: (c) Location: Coccyx Wound Description (Comments): red/brown blanchable areas Wound Outcome: Other (Comment) Wound/Incision 06/09/22 Venous Ulcer Pretibial Right (Active) Date First Assessed/Time First Assessed: 06/09/22 1540 Present on Hospital Admission: Yes Primary Wound Type: Venous Ulcer Location: Pretibial Wound Location Orientation: Right Wound Description (Comments): multi scabbed areas Wound/Incision 06/09/22 Venous Ulcer Pretibial Left (Active) Date First Assessed/Time First Assessed: 06/09/22 1540 Primary Wound Type: Venous Ulcer Location: Pretibial Wound Location Orientation: Left Wound Description (Comments): multi scabbed areas on shins Wound/Incision 06/10/22 Traumatic Leg Left;Proximal;Upper;Posterior (Active) Date First Assessed/Time First Assessed: 06/10/22 0832 Primary Wound Type: Traumatic Location: Leg Wound Location Orientation: Left;Proximal;Upper;Posterior Wound/Incision 06/10/22 Amputation site - Toe Anterior;Right (Active) Date First Assessed/Time First Assessed: 06/10/22 1900 Present on Hospital Admission: Yes Location: Amputation site - Toe Wound Location Orientation: Anterior;Right Wound Description (Comments): amputation of right pinky toe Wound/Incision 08/01/23 Pressure Injury Leg Anterior;Left;Upper;Medial (Active) Date First Assessed/Time First Assessed: 08/01/23 0000 Primary Wound Type: Pressure Injury Location: Leg Wound Location Orientation: Anterior;Left;Upper;Medial Pressure Injury Stage: Stage 2 Constitutional: General Appearance []WDWN [x]Obese []Cachectic []Thin []Ill Eyes: Inspection of Pupils/Irises Pupils round and react: [x]Yes []No Sclera: []Icteric [x]Non-Icteric Inspection of Conjunctiva/Lids Conjunctiva: []Injected [x]Non-Injected Lids: [x]Intact []Lesion Present ENT/Mouth: External Inspection of ears/nose [x] Normal [] Scar/Lesion/Mass Inspection of teeth/lips/gums Dentition: []Crow Teeth []Dentures Lips/Gums: []Intact []Lesion Present Mucosa: [][place] []Moist [x]Dry Neck: External Appearance Overall Appearance: [x]Normal []Lesion/Mass/Crepitus Present Trachea midline: [x]Yes []No Thyroid [x]Normal []Enlarged []Tender []Mass []Absent Respiratory: Respiratory effort []Labored [x]Non-Labored [] Mechanically-Ventilated Auscultation []Clear []Crackles []Wheezes []Rhonchi Distant and diminish Cardiovascular: Auscultation Rate: [x]Regular []Irregular []Tachycardia []Bradycardia Rhythm: []Regular [x]Irregular Murmur: []Present [x]Absent Extremities Peripheral Edema: [x]Present []Absent Varicosities: []Present [x]Absent Gastrointestinal: Abdomen Palpation: [x]Soft []Firm []Tender [x]Non-Tender []Distended [x]Non-distended Mass: []Present [x]Absent Bowel Sounds: [x]Present []Absent Hernia: []Present [x]Absent Liver/Spleen: []Hepatosplenomegaly [x]Organomegaly Absent Musculoskeletal: Inspection of Digits and Nails Cyanosis: []Present [x]Absent Clubbing: []Present [x]Absent Ischemia: []Present [x]Absent Infection: []Present [x]Absent Extremities BLANCA Equally: Except ([]RUE []RLE []LUE []LLE) Strength/Tone: Intact and Normal ([]RUE []RLE []LUE []LLE) Skin: Inspection []Normal [x]Rash []Lesion []Ulcer Palpation [x]Warm []Cool [x]Dry []Clammy []Nodules []Induration []Skin-tightening Cap-Refill: [] <3 sec [x] >3 seconds (delayed) Neurologic: GCS EYE: 4 - Opens spontaneously GCS MOTOR: 6 - Obeys commands for movement GCS VERBAL: 4 - Confused Total GCS: 14 [x] Sensation grossly intact Psych: Mental Status Alert: [x]Yes [] No Oriented: []x0 [x]X1 []X2 []x3 Mood/Affect []Normal []Flat []Agitated []Depressed []Anxious []Calm []Sedated [x]NAD [facility] Labs within last 24 hours- BMP: Recent Labs 08/05/23 0343 08/05/23 1505 08/06/23 0425 NA 143 141 145 K 4.0 4.2 3.9 CL 105 102 104 CO2 29 30 33* BUN 74* 72* 71* CREATININE 1.09* 1.09* 1.11* CALCIUM 8.8 8.8 9.0 MG 2.1 2.0 2.2 PHOS 2.9 3.5 3.7 LFTs: Recent Labs 08/04/23 0330 08/05/23 0343 08/06/23 0425 AST 15 17 19 ALT 13 12 12 PROT 5.7* 5.8* 5.8* ALBUMIN 3.4* 3.5 3.7 BILITOT 0.5 0.5 0.6 ALKPHOS 51 45 36* Glucose: Recent Labs 08/03/23 1439 08/03/23 1642 08/04/23 0330 08/04/23 0507 08/04/23 1112 08/04/23 1515 08/04/23 1757 08/04/23 2346 08/05/23 0343 08/05/23 0556 08/05/23 1126 08/05/23 1505 08/05/23 1720 08/05/23 2355 08/06/23 0425 08/06/23 0609 GLUCOSE 227* -- 256* -- -- 208* -- -- 154* -- -- 207* -- -- 136* -- POCGLU -- < > -- < > 254* -- 223* 202* -- 174* 127* -- 271* 210* -- 141* < > = values in this interval not displayed. Procal: No results for input(s): "PROCAL" in the last 72 hours. CBC: Recent Labs 08/04/23 1515 08/05/23 0343 08/06/23 0444 WBC 5.1 6.0 4.5 HGB 7.5* 7.8* 7.0* HCT 23.8* 24.1* 22.4* PLT 88* 103* 119* MCV 106.7* 106.2* 107.7* RDW 14.4 14.5 14.6 ABGs: No results for input(s): "PHART", "QGI7EDL", "PO2ART", "WUY1YUP", "SO2ART", "Z3ULGMGJ" in the last 72 hours. Lactic Acid: No results for input(s): "LACTATE" in the last 72 hours. INR: No results for input(s): "INR" in the last 72 hours. Cardiac Injury Profile: No results for input(s): "CKTOTAL", "CKMB", "TROPONINI" in the last 72 hours. Labs in Last 3 months: Lab Results Component Value Date INR 1.1 08/02/2023 Microbiology- Urine Cx: Lab Results Component Value Date URINECX Normal urogenital gaby present 07/30/2023 URINECX 50,000-90,000 CFU/mL Escherichia coli (A) 07/30/2023 Blood Cx: Lab Results Component Value Date BLOODCX No growth at 4 days 08/02/2023 BLOODCX No growth at 4 days 08/02/2023 Sputum Cx: Lab Results Component Value Date RESPCULT No growth of normal respiratory gaby. 08/01/2023 Gram Stain: Lab Results Component Value Date LABGRAM 08/01/2023 Few Polymorphonuclear leukocytes per low power field LABGRAM Few Epithelial cells per low power field 08/01/2023 LABGRAM No organisms seen 08/01/2023 PNA PCR: Lab Results Component Value Date HUMANMETAPNE Not Detected 08/01/2023 COVID19: No results found for: COVID19 Legionella Ag: Lab Results Component Value Date LEGIONELLAPN Not Detected 08/01/2023 Strep Ag: No results for input(s): "STREPPNEUMO" in the last 72 hours. Imaging- Assessment and Plan: Principal Problem: Severe sepsis (HCC) Assessment: Septic Shock secondary to Chronic Jose UTI ESBL ecoli bacteremia Rt ureteral calculus s/p ureteral stent 07/30 Choledocholithiasis Acute Hypoxic Respiratory Failure from rhino/enterovirus, LLL infiltrate Volume overload PHOEBE WHITLEY NSTEMI DM2 Anemia/thrombocytopenia Hx of Afib Hx of Neurogenic bladder with chronic jose Morbid Obesity Plan: Patient afebrile hemodynamically stable, mentation improve, suspect might be a baseline? Continue meropenem abx, will need PICC line. PICC line order placed. ID Following Urology sing off but placed follow up 08/22/23 Gen surg following not plan for surgical intervention at this point. Gi mentions possible ERCP if stone were to cause further issues. Improving, on NC 4L, continue lasix drip for now will transition to lasix 80 mg IV BID Needs BIPAP at night Whitley resolving, Scr approaching baseline off 1.2- 1.5 Blood sugar 136, on ISS, Endo following Hgb/PLT stable Appears troponin was trending down, normal with mild Cont metoprolol, cont heparin drip until post PICC line GI Prophylaxis: Pepcid IV DVT Prophylaxis: Full anticoagulation Disposition: Transfer to [facility] this afternoon if stable Critical Care Time: 35 min Total critical care time caring for this patient with life threatening, unstable organ failure, including direct patient contact, management of life support systems, review of data including imaging and labs, discussions with other team members and physicians, excluding procedures. [facility]phrology Progress Note Subjective/ 72 y.o. year old female who we are seeing in consultation for volume management. Extubated Sleeping Urine output good, good response to IV diuresis +albumin. Is now Lasix drip BP stable. ROS otherwise negative. No change in PFSH. Objective/ Vitals: 08/05/23 1126 08/05/23 1203 08/05/23 1303 08/05/23 1403 BP: 143/60 146/66 130/54 BP Location: Left arm Patient Position: Pulse: 99 86 93 Resp: 13 13 13 Temp: 36.9 C (98.4 F) TempSrc: Axillary SpO2: 96% 96% 98% Weight: Height: 24HR INTAKE/OUTPUT: Intake/Output Summary (Last 24 hours) at 08/05/2023 1624 Last data filed at 08/05/2023 1616 Gross per 24 hour Intake 2621.67 ml Output 4325 ml Net -1703.33 ml Constitutional: NAD, sleeping. Head: AT NC Neck: No JVD, no thyromegaly Cardiovascular: S1, S2 without m/r/g Respiratory: CTA B without w/r/r Abdomen: soft, nt Ext: 2+ B/L pitting LE edema, no tremor. albumin human, 25 g, IntraVENous, q8h ammonium lactate, , Topical, BID [Held by provider] apixaban, 5 mg, Oral, BID ascorbic acid, 250 mg, Oral, Daily atorvastatin, 20 mg, Oral, Nightly baclofen, 5 mg, Oral, TID bisacodyl, 10 mg, Rectal, BID Diclofenac Sodium, 4 g, Topical, BID donepezil, 10 mg, Oral, Nightly famotidine (Pepcid) 20 mg in sodium chloride (PF) 0.9 % 10 mL injection, 20 mg, IntraVENous, BID gabapentin, 200 mg, Oral, TID insulin NPH, 25 Units, SubCUTAneous, q12h insulin regular, 0-6 Units, SubCUTAneous, q6h insulin regular, 6 Units, SubCUTAneous, q6h ipratropium-albuterol, 3 mL, Nebulization, TID lidocaine, , Topical, Once [Held by provider] lisinopril, 10 mg, Oral, Daily meropenem, 2,000 mg, IntraVENous, q8h miconazole, , Topical, BID nystatin, , Topical, BID Petrolatum, , Topical, BID senna-docusate sodium, 2 tablet, Oral, BID sertraline, 50 mg, Oral, Daily sodium chloride 0.9%, 10 mL, IntraVENous, 2 times per day sodium chloride, 4 mL, Nebulization, BID stomahesive in petrolatum, , Topical, q8h fentaNYL, 25-200 mcg/hr, Last Rate: Stopped (08/05/23 0751) furosemide (Lasix) 100 mg in sodium chloride 0.9 % 100 mL (1 mg/mL) infusion, 5 mg/hr, Last Rate: 5 mg/hr (08/05/23 0741) heparin, 5-30 Units/kg/hr, Last Rate: 12 Units/kg/hr (08/05/23 1140) propofol, 5-50 mcg/kg/min, Last Rate: Stopped (08/05/23 0752) PRN medications: [Held by provider] acetaminophen OR [Held by provider] acetaminophen, dextrose, dextrose, glucagon (rDNA), glucose, heparin, heparin, labetalol, ondansetron ODT OR ondansetron, polyethylene glycol (PEG) 3350, sodium chloride 0.9% Data/ Recent Labs 08/04/23 0330 08/04/23 1515 08/05/23 0343 WBC 3.6 5.1 6.0 HGB 7.7* 7.5* 7.8* HCT 23.9* 23.8* 24.1* MCV 105.3* 106.7* 106.2* PLT 71* 88* 103* Recent Labs 08/04/23 1515 08/05/23 0343 08/05/23 1505 NA 141 143 141 K 3.5 4.0 4.2 CL 106 105 102 CO2 28 29 30 GLUCOSE 208* 154* 207* PHOS 3.1 2.9 3.5 MG 2.1 2.1 2.0 BUN 73* 74* 72* CREATININE 1.16* 1.09* 1.09* Assessment/ CKD3b (N18.32) Volume overload (E87.70) Acute hypoxic respiratory failure (J96.01) Septic shock (R65.21) UTI DMT2 Anemia Plan/ Agree with IV lasix + albumin today. Defer dosing to ICU for now. Good urine output. Cr improving. . Hypokalemia better. D/w RN. Sarita Wray MD [facility] Images from the original note were not included. [facility] - Infectious Diseases Attending Progress Note Subjective: Follow up for septic shock, ESBL E coli bacteremia, UTI/pyelonephritis, and VDRF. S/p ureteral stent placement on 07/30 for Lt UPJ calculus. She remained intubated, on vent, sedated but arousable, followed few commands, no fever, jose catheter in place , on going lymphedema and stasis skin changes on both lower legs, she appeared ill. She was admitted from an F with altered mental status, lethargic and foul smelling; in hospital, she responded to name and noxious stimuli, her chronic jose noted with purulent material draining from catheter; she had fever (T 100.5 F), was hypotensive (BP 91/35 to 81/40); labs showed Lactic acidosis 5.6, leukocytosis WBC 13.6, bandemia 23, UA WBC 51-100, she was treated with sepsis bundle including NS 3000 ml, vancomycin and cefepime. Her CT abdomen and pelvis showed left UPJ calculus with mild to moderate upstream hydronephrosis, underwent Cystoscopy, ureteral stent placement, early AM on 07/31/23. She has h/o DM2, morbid obesity, PHOEBE, chronic Jose due to neurogenic bladder, anxiety, chronic pain, hospital admission in May of 2022 with ESBL E. Coli bacteremia. She was examined; notes, labs, and imaging were reviewed and treatment plan was discussed. Objective: Vitals: Patient Vitals for the past 24 hrs: BP Temp Temp src Pulse Resp SpO2 08/05/23 1403 130/54 -- -- 93 13 98 % 08/05/23 1303 146/66 -- -- 86 13 96 % 08/05/23 1203 143/60 -- -- 99 13 96 % 08/05/23 1126 -- 36.9 C (98.4 F) Axillary -- -- -- 08/05/23 1100 140/52 -- -- 88 15 -- 08/05/23 1000 (!) 128/40 -- -- 88 13 -- 08/05/23 0803 150/52 37.4 C (99.4 F) Oral 91 20 -- 08/05/23 0703 137/76 -- -- 80 12 -- 08/05/23 0418 -- -- -- 89 16 99 % 08/05/23 0007 -- -- -- 91 15 100 % 08/05/23 0004 121/54 36.9 C (98.4 F) Oral 92 17 99 % 08/04/23 2301 119/63 -- -- 84 (!) 11 100 % 08/04/23 2201 117/63 -- -- 90 (!) 10 98 % 08/04/23 2102 122/59 -- -- 85 16 98 % 08/04/232046 -- -- -- 86 16 98 % 08/04/232045 -- -- -- 76 15 98 % 08/04/23 2032 129/54 37.2 C (99 F) Oral 85 17 99 % 08/04/232001 (!) 111/49 -- -- 90 16 98 % 08/04/23 1902 111/59 -- -- 86 19 99 % 08/04/23 1802 120/69 -- -- 81 (!) 8 99 % 08/04/23 1703 107/57 -- -- 81 (!) 9 97 % 08/04/23 1630 120/60 -- -- 83 (!) 9 99 % Physical Exam Vitals and nursing note reviewed. Constitutional: Appearance: She is obese. She is ill-appearing. Comments: Intubated and sedated, HENT: Head: Normocephalic and atraumatic. Nose: Nose normal. Mouth/Throat: Mouth: Mucous membranes are moist. Pharynx: Oropharynx is clear. Comments: Orally intubated. Eyes: Extraocular Movements: Extraocular movements intact. Pupils: Pupils are equal, round, and reactive to light. Cardiovascular: Rate and Rhythm: Normal rate and regular rhythm. Pulses: Normal pulses. Heart sounds: Normal heart sounds. Pulmonary: Effort: Pulmonary effort is normal. Breath sounds: Rhonchi present. Abdominal: General: Abdomen is flat. Bowel sounds are normal. Palpations: Abdomen is soft. Genitourinary: Comments: Jose catheter in place. Musculoskeletal: General: Swelling present. Cervical back: Normal range of motion and neck supple. Right lower leg: Edema present. Left lower leg: Edema present. Skin: General: Skin is warm and dry. Comments: -Chronic lymphedema and stasis wounds on to bilateral lower extremities. -Bilateral feet with dry flaking skin -all folds with fungal like erythema. Neurological: Comments: Sedated but arousable. Psychiatric: Comments: Sedated, but alert. Labs: Recent Labs 08/03/23 0015 08/03/2334708/03/23 1439 08/04/23 03308/04/23 15108/05/23 0343 08/05/23 1505 NA 141 140 < > 140 141 143 141 K 4.0 4.0 < > 4.0 3.5 4.0 4.2 CL 105 103 < > 105 106 105 102 CO2 27 25 < > 27 28 29 30 BUN 70* 67* < > 71* 73* 74* 72* CREATININE 1.27* 1.36* < > 1.15* 1.16* 1.09* 1.09* GLUCOSE 216* 234* < > 256* 208* 154* 207* CALCIUM 8.4 8.3* < > 8.3* 8.6 8.8 8.8 PROT -- 5.7* -- 5.7* -- 5.8* -- BILITOT -- 0.5 -- 0.5 -- 0.5 -- ALKPHOS -- 59 -- 51 -- 45 -- AST -- 18 -- 15 -- 17 -- ALT -- 15 -- 13 -- 12 -- PROCAL 17.21* -- -- -- -- -- -- < > = values in this interval not displayed. Recent Labs 08/03/2334708/04/23 03308/04/23 15108/05/23 0343 WBC 5.4 3.6 5.1 6.0 HGB 8.2* 7.7* 7.5* 7.8* HCT 25.7* 23.9* 23.8* 24.1* PLT 72* 71* 88* 103* LYMPHOPCT 12.1* 23 -- 46* MONOPCT 6.4 12 -- 4* BASOPCT 0.2 1 -- 1 NEUTROABS 4.3 -- -- -- Micro: No results for input(s): "COVID19" in the last 72 hours. Collected Updated Procedure Result Status 08/02/2023 0259 08/04/2023 08 Blood culture Site #1 - Assess for effectiveness of treatment [[id number]] Blood, Venous Preliminary result Component Value Blood Culture No growth at 48 hours P 08/02/2023 0259 08/04/2023 08 Blood culture Site #2 - Assess for effectiveness of treatment [[id number]] Blood, Venous Preliminary result Component Value Blood Culture No growth at 48 hours P Collected Updated Procedure Result Status 08/01/2023 0416 08/01/2023 1036 MRSA by PCR [[id number]] ESwab from Nasal Final result Component Value Staphylococcus aureus Not Detected mecA gene Not Detected 08/01/2023 0415 08/01/2023 1236 Respiratory culture and Stain [[id number]] Sputum Preliminary result Component Value Respiratory culture Culture in progress P Gram Stain Result Few Polymorphonuclear leukocytes per low power field P Few Epithelial cells per low power field P No organisms seen P 08/01/2023 0415 08/01/2023 1320 Pneumonia PCR Panel [[id number]] (Abnormal) Sputum Final result Component Value Staphylococcus aureus Not Detected Streptococcus agalactiae Not Detected Streptococcus pneumoniae Not Detected Streptococcus pyogenes Not Detected Haemophilus influenzae Not Detected Moraxella catarrhalis Not Detected Acinetobacter baumannii complex Not Detected Enterobacter cloacae complex Not Detected Escherichia coli Not Detected Klebsiella (Enterobacter) aerogenes Not Detected Klebsiella oxytoca Not Detected Klebsiella pneumoniae Not Detected Proteus spp Not Detected Pseudomonas aeruginosa Not Detected Serratia marcescens Not Detected Chlamydia pneumoniae Not Detected Legionella pneumophila Not Detected Mycoplasma pneumoniae Not Detected Adenovirus Not Detected Coronavirus Detected Abnormal Human Metapneumovirus Not Detected Human Rhinovirus/Enterovirus Detected Abnormal Influenza A Not Detected Influenza B Not Detected Parainfluenza virus Not Detected Respiratory Syncytial Virus Not Detected 07/30/2023 2153 07/30/2023 2316 SARS-CoV-2 by PCR [[id number]] Swab from Nasopharynx Final result Component Value SARS-CoV-2 Not Detected 07/30/2023 1652 08/01/2023 1102 Urine culture [[id number]] (Abnormal) Urine, Clean Catch Preliminary result Component Value Urine Culture Normal urogenital gaby present P 50,000-90,000 CFU/mL Escherichia coli Abnormal P 07/30/2023 1607 07/30/2023 1619 Occult blood x 1, stool [[id number]] Stool from Per Rectum Final result Component Value Fecal occult blood Negative 07/30/2023 1337 08/01/2023 1501 Blood culture Site #1 - Suspected Infection [[id number]] Blood, Venous Preliminary result Component Value Blood Culture No growth at 48 hours P 07/30/2023133608/01/2023 0611 Blood culture Site #2 - Suspected Infection [[id number]] (Abnormal) Blood, Venous Preliminary result Component Value Blood Culture Gram-negative bacilli Panic P 07/30/2023133608/01/2023 0611 Blood Culture Identification - Anaerobic [[id number]] (Abnormal) Blood, Venous Final result Component Value Escherichia coli Detected Abnormal CTX-M (ESBL gene) Detected Abnormal Lines: RIJ Radiography/Echo/Other: XR chest 1 view [[id number]] Collected: 08/01/23720 Order Status: Completed Updated: 08/01/23724 Narrative: Patient Name: SALAZAR COYLE : 1950 Exam Date/Time: 08/01/2023 06:36 Procedure: XR CHEST 1 VIEW Ordering Provider: DEL REAL CHELSEA Reason For Exam: Intubated Examination: Portable chest Indication: Intubated Comparison: Previous day Findings: The exam is limited secondary to portable technique and large patient body habitus. Leftward patient rotation also limits assessment. Endotracheal tube tip is at the level of the medial clavicles. NG tube is directed towards the stomach. Right IJ central venous catheter in similar position. Cardiac silhouette is slightly enlarged. There is blunting of left costophrenic angle. There is diffuse calcification of the aortic arch. No sizable pneumothorax however assessment of the lung apices is somewhat limited from overlying soft tissues. Impression: Impression: Limited study Cardiomegaly and calcified thoracic aorta. Report Dictated on Electronically Signed By: Austen Thurston MD Electronically Signed Date/Time: 08/01/2023 7:24 AM EDT FL GUIDANCE OR USE ONLY - NON RESULTABLE [[id number]] Resulted: 07/31/23634 Order Status: Completed Updated: 07/31/23634 Narrative: There is no interpretation needed for this exam. XR chest 1 view [[id number]] Collected: 07/31/23501 Order Status: Completed Updated: 07/31/23505 Narrative: [facility] 1950 [id number] Exam Date/Time: 07/31/2023 04:56 Procedure: XR CHEST 1 VIEW Ordering Provider: DEL REAL CHELSEA Reason For Exam: verify ETT placement EXAMINATION: XR chest AP. EXAM DATE & TIME: 07/31/2023 4:56 AM EDT INDICATION: verify ETT placement ADDITIONAL INFORMATION: 72-year-old female presents for follow-up after intubation COMPARISON: Chest x-ray dated 07/31/2023 TECHNIQUE: Frontal view of the chest was obtained. FINDINGS: Lines/support devices: An endotracheal tube is present with its distal tip approximately 1.9 cm above the candy. Unchanged right internal jugular approach central venous catheter, terminating in the region of the cavoatrial junction. An NG/OG tube is present with its distal tip coursing subdiaphragmatically and beyond the [id number]. Cardiac leads project over the chest, somewhat limiting evaluation. Cardiomediastinal silhouette: The heart is slightly enlarged. Lungs/pleura: A small left pleural effusion is seen. Right pleural spaces are clear. No evidence of pneumothorax. Osseous structures: Degenerative changes of the spine and shoulders are seen. No acute osseous abnormality is demonstrated. Other findings: None. Impression: 1. Small left pleural effusion. Underlying consolidation is not excluded. 2. Lines and support devices as above. Report Dictated on Electronically Signed By: Catarino Sue MD Electronically Signed Date/Time: 07/31/2023 5:05 AM EDT XR chest 1 view [[id number]] Collected: 07/31/23 0245 Order Status: Completed Updated: 07/31/23251 Narrative: Patient Name: SALAZAR COYLE : 1950 Exam Date/Time: 07/31/2023 01:43 Procedure: XR CHEST 1 VIEW Ordering Provider: DEL REAL CHELSEA Reason For Exam: PROCEDURES PORTABLE CHEST CLINICAL INDICATION: PROCEDURES TECHNIQUE: Portable AP COMPARISON: 07/30/2023 FINDINGS: Right IJ central line tip projects over the SVC. No focal consolidation or pulmonary edema. No pleural effusions or pneumothorax. The heart demonstrates normal size. Calcification of the thoracic aorta is noted. Degenerative change of the thoracic spine is noted. Impression: No focal consolidation or pulmonary edema. Report Dictated on Electronically Signed By: Bashir Barnes MD Electronically Signed Date/Time: 07/31/2023 2:[address] abdomen pelvis wo IV contrast [[id number]] Collected: 07/31/234 Order Status: Completed Updated: 07/31/23235 Narrative: Patient Name: SALAZAR COYLE : 1950 Exam Date/Time: 07/31/2023 00:27 Procedure: CT ABDOMEN PELVIS WO IV CONTRAST Ordering Provider: CALDERÓN SHANNON Reason For Exam: UTI, recurrent/complicated (Female) EXAMINATION: CT of the abdomen and pelvis without contrast. EXAM DATE & TIME: 07/31/2023 12:27 AM EDT INDICATION: UTI, recurrent/complicated (Female) ADDITIONAL INFORMATION: 72-year-old female with a provided history of UTI presents for evaluation COMPARISON: CT abdomen pelvis dated 06/10/2022 LIMITATIONS: Evaluation of the vasculature as well as the solid and hollow viscera is limited due to the lack of intravenous and oral contrast. Additional limitations are present secondary to portions of the patient outside the [id number] and associated beam hardening artifact. TECHNIQUE: Contiguous multiplanar 3 mm images were obtained from the levels of the lung bases through the pelvis without contrast. Images were reformatted in coronal and sagittal projections using the raw CT data and were interpreted in conjunction with the axial images to render the findings listed below. Dose reduction was employed with automated exposure control. FINDINGS: Included images of the lower thorax: There is bibasilar scarring/atelectasis. No focal lung consolidation or pleural effusion. Stable 3 mm right lower lobe pulmonary nodule (series 4, image 7). Previously identified 1.3 cm nodule is not included on the current examination. Hepatobiliary: Unremarkable liver without biliary dilation evident. Cholelithiasis is seen. Spleen: Unremarkable. Pancreas: There is fatty atrophy of the pancreas. Adrenal glands: Unremarkable. Kidneys, ureters and bladder: There is an 8 mm left UPJ calculus with mild to moderate upstream hydronephrosis (HU = 327). Additional coarse, nonobstructing left renal calculi are noted. No evidence of right-sided hydronephrosis or nephrolithiasis. A Jose catheter is present within the urinary bladder, decompressing it and limiting evaluation. Abdominal and pelvic vasculature: Atherosclerotic vascular calcifications are present in the abdominal aorta and its proximal major branches. Gastrointestinal: No evidence of obstruction. No pericecal inflammation to suggest acute appendicitis. Peritoneum, retroperitoneum and mesentery: No free fluid or free air. Inflammatory changes surround the left kidney. Lymph nodes: No abdominal or pelvic lymphadenopathy is evident. Solid pelvic viscera: The uterus appears surgically absent. Visualized musculoskeletal structures: No acute fracture or destructive osseous lesion is identified. Multilevel spondylosis is present. The bones are diffusely osteopenic. Impression: 1. Study limited as above. Allowing for this, there is a left UPJ calculus with mild to moderate upstream hydronephrosis. 2. Stable 3 mm right lower lobe pulmonary nodule. Recommendations for follow-up as below. Previously noted 1.3 cm pulmonary nodule is not included on the current examination. 3. Additional chronic findings as above. Updated Fleischner Society Guidelines for Management of Small Pulmonary Nodules Detected on CT (2017) SOLITARY NODULE: LOW RISK PATIENT < 6 mm - No follow-up 6 - 8 mm - 6 - 12 month follow-up, then consider 18 - 24 months > 8 mm - PET/CT, biopsy, or 3 month follow-up SOLITARY NODULE: HIGH RISK PATIENT < 6 mm - Optional 6 - 12 months follow-up (suspicious morphology or upper lobe) 6 - 8 mm - 6 - 12 month follow-up, then 18 - 24 months > 8 mm - PET/CT, biopsy, or 3 month follow-up MULTIPLE NODULES: LOW RISK PATIENT (Use most suspicious) All < 6 mm - No follow-up Any > 6 mm - 3 - 6 month follow-up, then 18 - 24 months MULTIPLE NODULES: HIGH RISK PATIENT (Use most suspicious) All < 6 mm - No follow-up Any > 6 mm - 3 - 6 month follow-up, then 18 - 24 months Report Dictated on Electronically Signed By: Catarino Sue MD Electronically Signed Date/Time: 07/31/2023 2:[address] head wo IV contrast [[id number]] Collected: 07/30/23 1449 Order Status: Completed Updated: 07/30/23 145 Narrative: Patient Name: SALAZAR COYLE : 1950 Exam Date/Time: 07/30/2023 14:19 Procedure: CT HEAD WO IV CONTRAST Ordering Provider: LEMON JAY Reason For Exam: Mental status change, unknown cause Indication: Mental status change Comparison date: 06/09/2022 FINDINGS: Dose reduction was employed with automated exposure control.3 mm unenhanced imaging of the brain performed. Images viewed in multiple orthogonal planes. Acute findings: No convincing acute ischemia or infarct, mass effect or midline shift, or hemorrhage. Bony structures:Unremarkable as seen. Orbits within normal limits, limited lack of contrast. Review of the paranasal sinuses shows stable right maxillary fluid-filled partially calcified structure etiology uncertain.. Impression: No acute brain process identified. Report Dictated on Electronically Signed By: Carlos Martinez MD Electronically Signed Date/Time: 07/30/2023 2:51 PM EDT XR chest 1 view [[id number]] Collected: 07/30/23 1403 Order Status: Completed Updated: 07/30/23 1420 Narrative: Patient Name: SALAZAR COYLE : 1950 Exam Date/Time: 07/30/2023 14:01 Procedure: XR CHEST 1 VIEW Ordering Provider: LEMON JAY Reason For Exam: ALTERED MENTAL STATUS EXAM TYPE: RADIOLOGIC EXAMINATION, CHEST, SINGLE VIEW FRONTAL (CXR SINGLE VIEW) EXAM DATE AND TIME: 07/30/2023 2:01 PM EDT INDICATION: Altered mental status COMPARISON: 06/10/2022 TECHNIQUE: A single frontal view of the thorax was obtained and reviewed. Special views: None. Impression: 1. Lines/Tubes/Devices/Hardware: Leads noted. Please confirm position and function of any catheters or attempted catheters clinically. 2. Lungs: No convincing acute process.. Limited due to portable technique. Consider follow-up with PA and lateral chest for persistent symptoms. 3. Pleura: No significant effusion. No significant pneumothorax. 4. Heart and mediastinum: Limited due to technique. 5. Upper abdomen: No acute process seen. 6. Thorax:No acute bony process Report Dictated on Electronically Signed By: Carlos Martinez MD Electronically Signed Date/Time: 07/30/2023 2:03 PM EDT 07/31/23 2D ECHO: Interpretation Summary Left Ventricle: Left ventricle size is normal. Mildly increased wall thickness. Normal left ventricular systolic function. EF by 2D Simpsons Biplane is 63%. Normal wall motion. Right Ventricle: Right ventricle size is normal. Normal systolic function. Aortic Valve: Trileaflet. No cusp thickening. Mildly calcified cusps. Mild annular calcification. No regurgitation. Valve appears to open well velocities suggest Mild stenosis of the aortic valve. AV mean gradient is 9 mmHg. AV area by continuity VTI is 2.3 cm2. Left Atrium: Left atrium is dilated. Echo Findings Left Ventricle Left ventricle size is normal. Mildly increased wall thickness. Normal left ventricular systolic function. EF by 2D Simpsons Biplane is 63%. Normal wall motion. Right Ventricle Right ventricle size is normal. Normal systolic function. Left Atrium Left atrium is dilated. Interatrial Septum No interatrial shunt visualized on color Doppler. Right Atrium Right atrium size is normal. Aortic Valve Trileaflet. No cusp thickening. Mildly calcified cusps. Mild annular calcification. No regurgitation. Valve appears to open well velocities suggest Mild stenosis of the aortic valve. AV mean gradient is 9 mmHg. AV area by continuity VTI is 2.3 cm2. Mitral Valve Not well visualized. Moderately calcified leaflets. Moderate annular calcification. Trace regurgitation. No stenosis noted. Tricuspid Valve Valve structure is normal. Mild (1+) regurgitation. Pulmonic Valve The pulmonic valve was not well visualized. Trace regurgitation. Pulmonary Artery Pulmonary artery was not well visualized. Aorta Normal sized sinuses of Valsalva and ascending aorta. IVC/Hepatic Veins IVC diameter is normal and decreases greater than 50% during inspiration; therefore the estimated right atrial pressure is normal (~3 mmHg). Pericardium No pericardial effusion. Study Details Image quality: fair. Heart rate: 86 bpm. The underlying ECG rhythm was sinus rhythm. Technical qualifiers: Technically difficult study due to patient's body habitus and procedure performed with the patient in a supine position. vented. Ultrasound enhancement agent was given to enhance imaging. Antimicrobials, Start/End Dates: Cefepime 07/29 Andres 07/29- Vanco 07/29-08/03 Impression: Septic shock. ESBL- E coli bacteremia. VDRF. ESBL-E coli UTI/ pyelonephritis. Left UPJ calculus with mild to moderate upstream hydronephrosis, s/p cystoscopy and ureteral stent placement, on 07/31/23. H/o neurogenic bladder requiring chronic use of jose catheter. Morbid obesity disorder. Plan: Pt sick due to septic shock, ESBL- E coli bacteremia, UTI/ pyelonephritis and VDRF. S/p ureteral stent placement and has chr jose catheter. Afebrile, hemodynamically ok. Recent blood and sputum cxs -neg so far. Pt allergic to ertapenem but tolerated meropenem, continue meropenem to complete 2 weeks treatment from negative cx date (08/01), through 08/16/23. Opat in chart. She has chronic jose catheter. Surveillance blood cx x2 on 08/23/23 to document sterility. High level complexity medical decision making. Please call with any further question. Total time 50 minutes on this day of encounter includes counseling, coordinating plan of care, record and documentation review before and after visit including documentation and time not explicitly included on EMR time stamp for accounting for open encounter. Family Communication Number Called: [phone] Name of Designated Family Registered Nurse Maternity: Deidra Vang Relationship: daughter Phone Call Outcome: I left a HIPPA compliant message at the number listed above. Family Registered Nurse Maternity Updated on the Following: Hospital course [facility] - Surgery [facility] Physicians Surgery Patient Name: Salazar Coyle Patient seen and examined by myself 08/05/2023 (late entry) and I agree with LEONIDSA note below Patient remains intubated, but more alert Abdomen soft nontender nondistended Labs and imaging reviewed Assessment /Plan: Planning for extubation today Urosepsis Incidental finding biliary ductal dilation and possible choledocholithiasis Asymptomatic Recommend continue with current management and will defer decision for MRCP/ERCP to GI Surgery will continue to follow for now Patient counseled on risks,benefits, and alternatives of treatement plan at length. Patient states an understanding and willingness to proceed with plan. I personally saw and evaluated the patient. I reviewed and agree with the LEONIDAS's documentation. I provided a substantive portion of the care of this patient. I personally performed the (MDM) for this encounter. I discussed the patient's condition and treatment options with them. I have also reviewed and agree with the past medical, family and social history and care plan unless otherwise noted. All of the patient's questions were answered. This case represents moderate level care including chart review, care coordination and face to face encounter was spent discussing/counseling the patient regarding the care plan for this patient. The patient was seen and examined independently and relevant data reviewed by myself. A full chart review was performed. Adis Dukes MD FACS General Surgery 10:53 AM 08/06/2023 GENERAL SURGERY Progress Note PATIENT NAME: Salazar Coyle TODAY'S DATE: 08/05/2023 SUBJECTIVE: General Surgery follow up on cholelithiasis and possible choledocholithiasis. No acute events overnight. No abdominal pain. Patient remains intubated but opens eyes and follows commands. Pain controlled Yes Other Complaints No Flatus/BM/or Ostomy function {Yes OBJECTIVE: VITALS: BP 150/52 (BP Location: Left arm, Patient Position: Lying) Pulse 91 Temp 37.4 C (99.4 F) (Oral) Resp 20 Ht 5' 5" (1.651 m) Wt (!) 350 lb (159 kg) SpO2 99% BMI 58.24 kg/m INTAKE/OUTPUT: I/O last 3 completed shifts: In: 5839 (36.8 mL/kg) [I.V.:3117 (19.6 mL/kg); NG/GT:1898; IV Piggyback:824] Out: 3810 (24 mL/kg) [Urine:3810 (0.7 mL/kg/hr)] Weight: 158.8 kg I/O this shift: In: 60 [NG/GT:60] Out: 900 [Urine:900] REVIEW OF SYSTEMS: Pertinent positives and negatives as per interval history section PHYSICAL EXAM: CONSTITUTIONAL: A&O x 3, LUNGS: Resp effort easy and unlabored, breath sounds normal CARDIOVASCULAR: RRR ABDOMEN: soft non distended, non tender MUSCULOSKELETAL: Normal range of motion NEUROLOGIC: Level of Alertness: alert PSYCHIATRIC: Speech is normal SKIN: Warm, dry, and intact Data: CBC: Recent Labs 08/04/23 0330 08/04/23 1515 08/05/23 0343 WBC 3.6 5.1 6.0 HGB 7.7* 7.5* 7.8* HCT 23.9* 23.8* 24.1* PLT 71* 88* 103* BMP: Recent Labs 08/04/23 0330 08/04/23 1515 08/05/23 0343 NA 140 141 143 K 4.0 3.5 4.0 CL 105 106 105 CO2 27 28 29 BUN 71* 73* 74* CREATININE 1.15* 1.16* 1.09* GLUCOSE 256* 208* 154* Hepatic: Recent Labs 08/03/23 0348 08/04/23 0330 08/05/23 0343 AST 18 15 17 ALT 15 13 12 BILITOT 0.5 0.5 0.5 ALKPHOS 59 51 45 ASSESSMENT AND PLAN: Ms. Coyle is a 72 y/o F who presented with ESBL ecoli bacteremia with recent abnormal CT - CT abd/pelvis with cholelithiasis, abnormal gallbladder distention, choledocholithiasis and extrahepatic duct dilation with CBD measuring 1.2 cm - Normal LFT's - Normal WBC - GI consulted for evaluation of choledocholithiasis monitoring LFT's- signed off- reevaluation with MRCP at later time and possible ERCP if choledocholithiasis seen - Intubated- vent mgmt per ICU - US abdomen reviewed showing cholelithiasis and dilated CBD without choledocholithiasis but CBD distal portion obscured - Disposition: NO acute surgical need at this time. Asymptomatic abdomen. No surgical plans this admission planned given ongoing current medical status. Further workup of possible choledocholithiasis through GI and evaluation of timing for possible ERCP if indicated. Okay for diet when appropriate. Can follow up with Surgery As outpatient. Patient counseled on risks, benefits, and alternatives of treatment plan today. Patient states an understanding and willingness to proceed with plan. Anibal Huff APRN - MANAGER PRESENTATION 08/05/23 0543 Wean Screen SpO2>/=88% Yes FiO2</=50% Yes PEEP </=8cmH2O Yes HR <140 BPM Yes RR </= 35 breaths/min Yes MAP >/= 65mmHg Yes Safety Screen Spontaneous Breathing Trial (SBT) Proceed with SBT - No exclusion criteria met Spontaneous Breathing Trial Weaning Start Time 0915 Weaning Tidal Volume 327 mL Weaning Respiratory Rate 15 Spontaneous Minute Volume (MV) 6.3 Total RSBI 27 Weaning Tolerance Good Weaning Stop Time 1000 Weaning Duration (min) 45 Spontaneous Breathing Trial (SBT) Outcome SBT Passed Patient completed SBT on 5 PS and 8 of PEEP ICU Progress Note Name: Salazar Coyle : 1950(72 y.o.) Date: 08/05/23 Team: MICU Attending: Maya Del Real DO Subjective: Hospital Summary: 72-year-old female with history of dementia, A-fib on Eliquis, DMT2, PHOEBE, morbid obesity, chronic Jose secondary to neurogenic bladder, chronic pain, anxiety, and admission 05/2022 with ESBL E. coli bacteremia with left UPJ calculus s/p stent and extended meropenem who presented with acute encephalopathy requiring intubation, admitted with septic shock secondary to UTI, left hydronephrosis, s/p cystoscopy with ureteral stent placement 07/30. Interval Events: Continued diuresis overnight. Patient awake and alert this morning, consistently following commands. Denied any pain. Scheduled Meds:albumin human, 25 g, IntraVENous, q8h ammonium lactate, , Topical, BID [Held by provider] apixaban, 5 mg, Oral, BID ascorbic acid, 250 mg, Oral, Daily atorvastatin, 20 mg, Oral, Nightly baclofen, 5 mg, Oral, TID bisacodyl, 10 mg, Rectal, BID Diclofenac Sodium, 4 g, Topical, BID donepezil, 10 mg, Oral, Nightly famotidine (Pepcid) 20 mg in sodium chloride (PF) 0.9 % 10 mL injection, 20 mg, IntraVENous, BID gabapentin, 200 mg, Oral, TID insulin NPH, 25 Units, SubCUTAneous, q12h insulin regular, 0-6 Units, SubCUTAneous, q6h insulin regular, 6 Units, SubCUTAneous, q6h ipratropium-albuterol, 3 mL, Nebulization, TID lidocaine, , Topical, Once [Held by provider] lisinopril, 10 mg, Oral, Daily meropenem, 2,000 mg, IntraVENous, q8h miconazole, , Topical, BID nystatin, , Topical, BID Petrolatum, , Topical, BID senna-docusate sodium, 2 tablet, Oral, BID sertraline, 50 mg, Oral, Daily sodium chloride 0.9%, 10 mL, IntraVENous, 2 times per day sodium chloride, 4 mL, Nebulization, BID stomahesive in petrolatum, , Topical, q8h Continuous Infusions:fentaNYL, 25-200 mcg/hr, Last Rate: Stopped (08/05/23 3438) furosemide (Lasix) 100 mg in sodium chloride 0.9 % 100 mL (1 mg/mL) infusion, 5 mg/hr, Last Rate: 5 mg/hr (08/05/23 7310) heparin, 5-30 Units/kg/hr, Last Rate: 12 Units/kg/hr (08/05/23 7984) propofol, 5-50 mcg/kg/min, Last Rate: Stopped (08/05/23 8582) Objective: Last Vitals: BP MAP 121/54 (08/05/23 0004) 74 (08/05/233) Arterial BP MAP Temp 36.9 C (98.4 F) (08/05/233) Pulse 89 (08/05/23417) Resp 16 (08/05/23417) SpO2 99 % (08/05/23417) Weight (!) 159 kg (350 lb) (07/31/23 09) BMI Body mass index is 58.24 kg/m . I/O: 08/03 699 - 08/04 658 In: 3203 [I.V.:1083] Out: 3010 [Urine:3010] Ventilator: Ventilation Day(s): 2 Resp Rate (Set): 16 Vt (Set, mL): 400 mL FiO2 (%): 30 % PEEP/CPAP (cm H2O): 8 cm H20 Inspiratory Time (sec): 0.9 sec Oxygen Delivery: O2 Flow Rate (L/min): 4 L/min Invasive Lines / Tubes / Drains: CVC Triple Lumen 07/31/23 Non-tunneled Right Internal jugular (Active) Number of days: 0 Peripheral IV 07/30/23 Distal;Posterior;Right Forearm (Active) Number of days: 0 Peripheral IV 07/30/23 Anterior;Proximal;Right;Upper Arm (Active) Number of days: 0 NG/OG Tube Orogastric Center mouth (Active) Number of days: 0 ETT 7.5 mm (Active) Number of days: 0 Central Line Indication: Vesicant infusions/medications at high risk of causing extravasation Jose Indications: Neurogenic bladder or chronic urinary retention Restraints: Restraints Non-Violent Or Non-Self Destructive Jul 31, 2023 4:41 Am Edt Restraint order already placed. Order is valid for duration of episode. Wounds: Wound/Incision 06/09/22 Coccyx (Active) Date First Assessed/Time First Assessed: 06/09/22 155 Present on Hospital Admission: Yes Location: Coccyx Wound Description (Comments): red/brown blanchable areas Wound Outcome: Other (Comment) Wound/Incision 06/09/22 Venous Ulcer Pretibial Right (Active) Date First Assessed/Time First Assessed: 06/09/22 1540 Present on Hospital Admission: Yes Primary Wound Type: Venous Ulcer Location: Pretibial Wound Location Orientation: Right Wound Description (Comments): multi scabbed areas Wound/Incision 06/09/22 Venous Ulcer Pretibial Left (Active) Date First Assessed/Time First Assessed: 06/09/22 1540 Primary Wound Type: Venous Ulcer Location: Pretibial Wound Location Orientation: Left Wound Description (Comments): multi scabbed areas on shins Wound/Incision 06/10/22 Traumatic Leg Left;Proximal;Upper;Posterior (Active) Date First Assessed/Time First Assessed: 06/10/22 0832 Primary Wound Type: Traumatic Location: Leg Wound Location Orientation: Left;Proximal;Upper;Posterior Wound/Incision 06/10/22 Amputation site - Toe Anterior;Right (Active) Date First Assessed/Time First Assessed: 06/10/22 1900 Present on Hospital Admission: Yes Location: Amputation site - Toe Wound Location Orientation: Anterior;Right Wound Description (Comments): amputation of right pinky toe Constitutional: General Appearance []WDWN [x]Obese []Cachectic []Thin []Ill Eyes: Inspection of Pupils/Irises Pupils round and react: [x]Yes []No Sclera: []Icteric [x]Non-Icteric Inspection of Conjunctiva/Lids Conjunctiva: []Injected [x]Non-Injected Lids: [x]Intact []Lesion Present ENT/Mouth: External Inspection of ears/nose [x] Normal [] Scar/Lesion/Mass Inspection of teeth/lips/gums Dentition: []Crow Teeth []Dentures Lips/Gums: []Intact []Lesion Present Mucosa: [][place] []Moist []Dry Neck: External Appearance Overall Appearance: [x]Normal []Lesion/Mass/Crepitus Present Trachea midline: [x]Yes []No Thyroid []Normal []Enlarged []Tender []Mass []Absent Respiratory: Respiratory effort []Labored []Non-Labored [x] Mechanically-Ventilated Auscultation [x]Clear []Crackles []Wheezes [][place] Cardiovascular: Auscultation Rate: [x]Regular []Irregular []Tachycardia []Bradycardia Rhythm: [x]Regular []Irregular Murmur: []Present []Absent Extremities Peripheral Edema: [x]Present []Absent Varicosities: []Present []Absent Gastrointestinal: Abdomen Palpation: [x]Soft []Firm []Tender [x]Non-Tender []Distended [x]Non-distended Mass: []Present [x]Absent Bowel Sounds: [x]Present []Absent Hernia: []Present []Absent Liver/Spleen: []Hepatosplenomegaly []Organomegaly Absent Musculoskeletal: Inspection of Digits and Nails Cyanosis: []Present [x]Absent Clubbing: []Present [x]Absent Ischemia: []Present [x]Absent Infection: []Present [x]Absent Extremities BLANCA Equally: Except ([]RUE []RLE []LUE []LLE) Strength/Tone: Intact and Normal ([]RUE []RLE []LUE []LLE) Skin: Inspection: Chronic LE discoloration and skin thickening []Normal []Rash []Lesion []Ulcer Palpation [x]Warm []Cool []Dry []Clammy []Nodules []Induration []Skin-tightening Cap-Refill: [x] <3 sec [] >3 seconds (delayed) Neurologic: GCS EYE: 4 - Opens spontaneously GCS MOTOR: 6 - Obeys commands for movement GCS Verbal: Sedated, intubated Total GCS: [] Sensation grossly intact Psych: Mental Status Alert: [x]Yes [] No Oriented: []x0 []X1 []X2 []x3 Mood/Affect [x]Normal []Flat []Agitated []Depressed []Anxious []Calm []Sedated []NAD [facility] within last 24 hours- BMP: Recent Labs 08/04/23 03308/04/23 1515 08/05/23 0343 NA 140 141 143 K 4.0 3.5 4.0 CL 105 106 105 CO2 27 28 29 BUN 71* 73* 74* CREATININE 1.15* 1.16* 1.09* CALCIUM 8.3* 8.6 8.8 MG 2.1 2.1 2.1 PHOS 3.1 3.1 2.9 LFTs: Recent Labs 08/03/23 03408/04/23 0330 08/05/23 0343 AST 18 15 17 ALT 15 13 12 PROT 5.7* 5.7* 5.8* ALBUMIN 3.2* 3.4* 3.5 BILITOT 0.5 0.5 0.5 ALKPHOS 59 51 45 Glucose: Recent Labs 08/02/23 1330 08/02/23 1432 08/02/23 1942 08/02/23 2036 08/03/23 0015 08/03/23 0348 08/03/23 0528 08/03/23 1439 08/03/23 1642 08/03/23 1812 08/03/23 2354 08/04/23 0330 08/04/23 0507 08/04/23 1112 08/04/23 1515 08/04/23 1757 08/04/23 2346 08/05/23 0343 08/05/23 0556 GLUCOSE 152* -- 106* -- 216* 234* -- 227* -- -- -- 256* -- -- 208* -- -- 154* -- POCGLU 165* < > -- < > -- -- < > -- 290* 302* 276* -- 349* 254* -- 223* 202* -- 174* < > = values in this interval not displayed. Procal: Recent Labs 08/03/23 0015 PROCAL 17.21* CBC: Recent Labs 08/04/2332908/04/23 1515 08/05/23 0343 WBC 3.6 5.1 6.0 HGB 7.7* 7.5* 7.8* HCT 23.9* 23.8* 24.1* PLT 71* 88* 103* MCV 105.3* 106.7* 106.2* RDW 14.4 14.4 14.5 ABGs: No results for input(s): "PHART", "VTB8MQI", "PO2ART", "JLS3NHY", "SO2ART", "F8IYKHMI" in the last 72 hours. Lactic Acid: No results for input(s): "LACTATE" in the last 72 hours. INR: No results for input(s): "INR" in the last 72 hours. Cardiac Injury Profile: No results for input(s): "CKTOTAL", "CKMB", "TROPONINI" in the last 72 hours. Labs in Last 3 months: Lab Results Component Value Date INR 1.1 08/02/2023 Microbiology- Urine Cx: Lab Results Component Value Date URINECX Normal urogenital gaby present 07/30/2023 URINECX 50,000-90,000 CFU/mL Escherichia coli (A) 07/30/2023 Blood Cx: Lab Results Component Value Date BLOODCX No growth at 48 hours 08/02/2023 BLOODCX No growth at 48 hours 08/02/2023 Sputum Cx: Lab Results Component Value Date RESPCULT No growth of normal respiratory gaby. 08/01/2023 Gram Stain: Lab Results Component Value Date LABGRAM 08/01/2023 Few Polymorphonuclear leukocytes per low power field LABGRAM Few Epithelial cells per low power field 08/01/2023 LABGRAM No organisms seen 08/01/2023 PNA PCR: Lab Results Component Value Date HUMANMETAPNE Not Detected 08/01/2023 COVID19: No results found for: COVID19 Legionella Ag: Lab Results Component Value Date LEGIONELLAPN Not Detected 08/01/2023 Strep Ag: No results for input(s): "STREPPNEUMO" in the last 72 hours. Imaging- Assessment and Plan: Principal Problem: Severe sepsis (HCC) Assessment: UTI may be related to chronic jose, esbl e coli bacteremia, right ureteral calculus s/p ureteral stent placement 07/30, neurogenic bladder with chronic Jose, WHITLEY Septic shock secondary to above, NSTEMI, A-fib on Eliquis Acute encephalopathy, dementia Intubated, PHOEBE, coronavirus and rhino/enterovirus, LLL infiltrate Choledocholithiasis Metabolic acidosis, DMT2 Anemia, thrombocytopenia Obesity Plan: Awake and alert this morning with minimal sedation. Intubated for airway protection on admission. Current vent settings 400 16 30 8. PCR positive for torres and rhino/enterovirus. Chest CT with LLL consolidation/atelectasis and mucous. Sputum culture negative. C/w bronchial hygiene measures. Tolerated PS trial yesterday. Aggressively diuresing, will repeat SBT today for possible extubation S/p ureteral stent placement 07/30 for 8mm L UPJ calculus. Blood cultures positive for ESBL e coli. ID following, on meropenem and vanc. Repeat blood cultures NGTD. Lactic acid resolved. S/p solucortef Repeat TTE with mild . EKG with LBBB similar to prior. Abdominal wall twitching has resolved. Soft on exam and without guarding. CT A/P with GB distention and dilatation of extrahepatic duct with stones in CBD. RUQ US with GB distention and mild GB wall thickening. Hepatic profile normal. GI rec ERCP vs MRI prior to d/c. Evaluated by surgery. Jose replaced on admission. Cr improving with diuresis. Remains net positive this admission, unclear if I/Os are accurate. Unable to obtain weights. Nephrology following, will continue with diuresis. Anemia stable, remains on heparin ggt for afib Endocrine consulted, appreciate assistance, adjusting NPH and humalog Bowel regimen Wound care following for topical fungal infections and pressure wounds Palliative following, family has concerns about penitentiary care GI Prophylaxis: Pepcid IV DVT Prophylaxis: Full anticoagulation Disposition: Remain in ICU Status Critical Care Time: 35 min Total critical care time caring for this patient with life threatening, unstable organ failure, including direct patient contact, management of life support systems, review of data including imaging and labs, discussions with other team members and physicians, excluding procedures. 08/05/23 0543 Wean Screen SpO2>/=88% Yes FiO2</=50% Yes PEEP </=8cmH2O Yes HR <140 BPM Yes RR </= 35 breaths/min Yes MAP >/= 65mmHg Yes Safety Screen Spontaneous Breathing Trial (SBT) Proceed with SBT - No exclusion criteria met [facility] Progress Note Subjective/ 72 y.o. year old female who we are seeing in consultation for volume management. Continues to be intubated. Awake, makes eye contact. Urine output good, good response to IV diuresis +albumin. BP stable. ROS unobtainable as the patient intubated. No change in PFSH. Objective/ Vitals: 08/04/23 1200 08/04/23 1230 08/04/23 1300 08/04/23 1305 BP: 116/54 107/55 BP Location: Patient Position: Pulse: 85 71 73 84 Resp: (!) 26 17 Temp: 36.7 C (98 F) TempSrc: Oral SpO2: 99% 97% 98% 99% Weight: Height: 24HR INTAKE/OUTPUT: Intake/Output Summary (Last 24 hours) at 08/04/2023 1448 Last data filed at 08/04/2023 1349 Gross per 24 hour Intake 2636 ml Output 2225 ml Net 411 ml Constitutional: Intubated, awake. Head: AT NC Neck: No JVD, no thyromegaly Cardiovascular: S1, S2 without m/r/g Respiratory: CTA B without w/r/r Abdomen: soft, nt Ext: 2+ B/L pitting LE edema, no tremor. ammonium lactate, , Topical, BID [Held by provider] apixaban, 5 mg, Oral, BID ascorbic acid, 250 mg, Oral, Daily atorvastatin, 20 mg, Oral, Nightly baclofen, 5 mg, Oral, TID bisacodyl, 10 mg, Rectal, BID Diclofenac Sodium, 4 g, Topical, BID donepezil, 10 mg, Oral, Nightly famotidine (Pepcid) 20 mg in sodium chloride (PF) 0.9 % 10 mL injection, 20 mg, IntraVENous, BID gabapentin, 200 mg, Oral, TID insulin NPH, 25 Units, SubCUTAneous, q12h insulin regular, 0-6 Units, SubCUTAneous, q6h insulin regular, 6 Units, SubCUTAneous, q6h ipratropium-albuterol, 3 mL, Nebulization, TID lidocaine, , Topical, Once [Held by provider] lisinopril, 10 mg, Oral, Daily meropenem, 2,000 mg, IntraVENous, q8h miconazole, , Topical, BID nystatin, , Topical, BID Petrolatum, , Topical, BID senna-docusate sodium, 2 tablet, Oral, BID sertraline, 50 mg, Oral, Daily sodium chloride 0.9%, 10 mL, IntraVENous, 2 times per day sodium chloride 0.9%, 5-40 mL, IntraCATHeter, q8h sodium chloride, 4 mL, Nebulization, BID stomahesive in petrolatum, , Topical, q8h fentaNYL, 25-200 mcg/hr, Last Rate: Stopped (08/04/23 1139) heparin, 5-30 Units/kg/hr, Last Rate: 11 Units/kg/hr (08/04/23 0517) norepinephrine, 1-100 mcg/min, Last Rate: Stopped (08/01/23 1530) propofol, 5-50 mcg/kg/min, Last Rate: 10 mcg/kg/min (08/04/23 1415) PRN medications: [Held by provider] acetaminophen OR [Held by provider] acetaminophen, dextrose, dextrose, glucagon (rDNA), glucose, heparin, heparin, labetalol, ondansetron ODT OR ondansetron, polyethylene glycol (PEG) 3350, sodium chloride, sodium chloride 0.9%, sodium chloride 0.9%, sodium chloride 0.9% Data/ Recent Labs 08/02/23 0422 08/03/23 0348 08/04/23 0330 WBC 8.2 5.4 3.6 HGB 8.7* 8.2* 7.7* HCT 26.4* 25.7* 23.9* MCV 103.9* 104.9* 105.3* PLT 74* 72* 71* Recent Labs 08/03/23 0348 08/03/23 1439 08/04/23 0330 NA 140 142 140 K 4.0 3.4* 4.0 CL 103 104 105 CO2 25 29 27 GLUCOSE 234* 227* 256* PHOS 3.3 3.3 3.1 MG 2.1 2.0 2.1 BUN 67* 72* 71* CREATININE 1.36* 1.27* 1.15* Assessment/ CKD3b (N18.32) Volume overload (E87.70) Acute hypoxic respiratory failure (J96.01) Septic shock (R65.21) UTI DMT2 Anemia Plan/ Agree with IV lasix + albumin today. Can repeat dose of IV lasix 80 mg + 25 gm albumin iv later today. Cr improving. D/w Dr. Bonilla. Hypokalemia improving. D/w MATHEUS. Sarita Wray MD [facility] Family Communication Number Called: [phone] Name of Designated Family Registered Nurse Maternity: Deidra Vang Relationship: daughter Phone Call Outcome: I spoke with the individual listed above. Family Registered Nurse Maternity Updated on the Following: Hospital course [facility] Attending GI Progress Note SUBJECTIVE: opens eyes to voice, responds to pain, lethargic Medications @MEDCMED@ OBJECTIVE VITALS: BP (!) 121/49 Pulse 94 Temp 36.9 C (98.4 F) (Oral) Resp 17 Ht 1.651 m (5' 5") Wt (!) 159 kg (350 lb) SpO2 91% BMI 58.24 kg/m TEMPERATURE: Current - Temp: 36.9 C (98.4 F); Max - Temp Av.8 C (98.3 F) Min: 36.6 C (97.8 F) Max: 37.1 C (98.7 F) RESPIRATIONS RANGE: Resp Av.7 Min: 0 Max: 28 PULSE RANGE: Pulse Av.3 Min: 72 Max: 95 BLOOD PRESSURE RANGE: Systolic (24hrs), Av , Min:95 , Max:168 ; Diastolic (24hrs), Av, Min:43, Max:86 PULSE OXIMETRY RANGE: SpO2 Av.6 % Min: 91 % Max: 100 % 24HR INTAKE/OUTPUT: Intake/Output Summary (Last 24 hours) at 08/04/2023 1021 Last data filed at 08/04/2023 0948 Gross per 24 hour Intake 3270 ml Output 3150 ml Net 120 ml GENERAL: intubated HEENT: intubated, pupils reactive CV: RRR, NL S1/S2, no murmurs. Distal pulses palpable and equal b/l. LUNGS: CTA b/l. Normal percussion and palpation. No W/R/R. ABD: + BS, soft, non-tender and non-distended. No hepatosplenomegaly. No mass felt. No rebound or guarding. EXT: No C/C, b/l le edema No muscle atrophy. SKIN: No skin lesion or breakdown. NEURO: lethargic, intubated, non-focal Data Recent blood work, radiologic study and endoscopic study were reviewed with the patient. CBC: Recent Labs 08/02/23 0422 08/03/23 0348 08/04/23 0330 WBC 8.2 5.4 3.6 HGB 8.7* 8.2* 7.7* HCT 26.4* 25.7* 23.9* PLT 74* 72* 71* HEPATIC: Recent Labs 08/03/23 0348 08/04/23 0330 AST 18 15 ALT 15 13 BILITOT 0.5 0.5 ALKPHOS 59 51 LIPASE/AMYLASE: No results for input(s): "AMYLASE", "LIPASE" in the last 72 hours. LACTATE: No lab exists for component: "LACTA" BNP: No results for input(s): "BNP" in the last 72 hours. INR: Recent Labs 08/02/23421 INR 1.1 ASSESSMENT AND PLAN 1. Choledocholithiasis - lft nl. Remains intubated, undergoing rx for urinary sepsis. Would favor conservative approach with repeat mri when more stable, reconsider ercp if stone remains(lft nl). Will sign off, available if needed [facility] - Surgery [facility] Physicians Surgery Patient Name: Salazar Coyle Date: 08/04/2023 Patient seen and examined by myself and I agree with LEONIDAS note below Patient intubated Abdomen soft nontender nondistended Labs and imaging reviewed Assessment /Plan: Planning for extubation today Urosepsis Incidental finding biliary ductal dilation and possible choledocholithiasis Asymptomatic Recommend continue with current management and will defer decision for ERCP to GI Surgery will continue to follow for now Patient counseled on risks,benefits, and alternatives of treatement plan at length. Patient states an understanding and willingness to proceed with plan. I personally saw and evaluated the patient. I reviewed and agree with the LEONIDAS's documentation. I provided a substantive portion of the care of this patient. I personally performed the (MDM) for this encounter. I discussed the patient's condition and treatment options with them. I have also reviewed and agree with the past medical, family and social history and care plan unless otherwise noted. All of the patient's questions were answered. This case represents moderate level care including chart review, care coordination and face to face encounter was spent discussing/counseling the patient regarding the care plan for this patient. The patient was seen and examined independently and relevant data reviewed by myself. A full chart review was performed. Adis Dukes MD [facility] General Surgery 1:12 PM 08/04/2023 GENERAL SURGERY Progress Note PATIENT NAME: Salazar Coyle TODAY'S DATE: 08/04/2023 SUBJECTIVE: General Surgery follow up on cholelithiasis and concern for choledocholithiasis. No acute events overnight. Remains intubated currently undergoing SBT. Pain controlled Yes Other Complaints No Flatus/BM/or Ostomy function {Yes OBJECTIVE: VITALS: BP (!) 121/49 Pulse 94 Temp 36.9 C (98.4 F) (Oral) Resp 17 Ht 5' 5" (1.651 m) Wt (!) 350 lb (159 kg) SpO2 91% BMI 58.24 kg/m INTAKE/OUTPUT: I/O last 3 completed shifts: In: 4856 (30.6 mL/kg) [I.V.:3180 (20 mL/kg); NG/GT:1676] Out: 3800 (23.9 mL/kg) [Urine:3800 (0.7 mL/kg/hr)] Weight: 158.8 kg I/O this shift: In: - Out: 800 [Urine:800] REVIEW OF SYSTEMS: Pertinent positives and negatives as per interval history section PHYSICAL EXAM: CONSTITUTIONAL: A&O x 1, LUNGS: Resp effort easy and unlabored, breath sounds normal. Intubated CARDIOVASCULAR: RRR ABDOMEN: soft non distended non tender MUSCULOSKELETAL: Normal range of motion NEUROLOGIC: Level of Alertness: alert. Eyes awaken to verbal stimuli PSYCHIATRIC: Intubated. SKIN: Warm, dry, and intact Data: CBC: Recent Labs 08/02/23 0422 08/03/23 0348 08/04/23 0330 WBC 8.2 5.4 3.6 HGB 8.7* 8.2* 7.7* HCT 26.4* 25.7* 23.9* PLT 74* 72* 71* BMP: Recent Labs 08/03/23 0348 08/03/23 1439 08/04/23 0330 NA 140 142 140 K 4.0 3.4* 4.0 CL 103 104 105 CO2 25 29 27 BUN 67* 72* 71* CREATININE 1.36* 1.27* 1.15* GLUCOSE 234* 227* 256* Hepatic: Recent Labs 08/01/23 1937 08/03/23 0348 08/04/23 0330 AST 23 18 15 ALT 17 15 13 BILITOT 0.6 0.5 0.5 ALKPHOS 73 59 51 ASSESSMENT AND PLAN: Ms. Coyle is a 72 y/o F who presented with ESBL ecoli bacteremia with recent abnormal CT - CT abd/pelvis with cholelithiasis, abnormal gallbladder distention, choledocholithiasis and extrahepatic duct dilation with CBD measuring 1.2 cm - Normal LFT's - Normal WBC - GI consulted for evaluation of choledocholithiasis monitoring LFT's - Intubated- vent mgmt per ICU - US abdomen reviewed showing cholelithiasis and dilated CBD without choledocholithiasis but CBD distal portion obscured - Disposition: NO acute surgical need at this time. Asymptomatic abdomen. No surgical plans this admission planned given ongoing current medical status. Further workup of possible choledocholithiasis through GI and evaluation of timing for possible ERCP if indicated. Okay for diet when appropriate. General Surgery will sign off. Patient counseled on risks, benefits, and alternatives of treatment plan today. Patient states an understanding and willingness to proceed with plan. Anibal Huff APRN - MANAGER PRESENTATION Images from the original note were not included. [facility] - Infectious Diseases Attending Progress Note Subjective: Follow up for septic shock, ESBL E coli bacteremia, UTI/pyelonephritis, and VDRF. S/p ureteral stent placement on 07/30 for Lt UPJ calculus. She remained intubated, on vent, sedated but arousable, did not follow commands, no fever, jose catheter in place , lymphedema and stasis skin changes on both lower legs, she appeared ill. She was admitted from an ECF with altered mental status, lethargic and foul smelling; in hospital, she responded to name and noxious stimuli, her chronic jose noted with purulent material draining from catheter; she had fever (T 100.5 F), was hypotensive (BP 91/35 to 81/40); labs showed Lactic acidosis 5.6, leukocytosis WBC 13.6, bandemia 23, UA WBC 51-100, she was treated with sepsis bundle including NS 3000 ml, vancomycin and cefepime. Her CT abdomen and pelvis showed left UPJ calculus with mild to moderate upstream hydronephrosis, underwent Cystoscopy, ureteral stent placement, early AM on 07/31/23. She has h/o DM2, morbid obesity, PHOEBE, chronic Jose due to neurogenic bladder, anxiety, chronic pain, hospital admission in May of 2022 with ESBL E. Coli bacteremia. She was examined; notes, labs, and imaging were reviewed and treatment plan was discussed. Objective: Vitals: Patient Vitals for the past 24 hrs: BP Temp Temp src Pulse Resp SpO2 Height 08/04/23 0812 -- -- -- 81 17 100 % -- 08/04/23 0730 120/62 36.9 C (98.4 F) Oral 82 16 100 % -- 08/04/23 0602 128/78 -- -- 86 15 100 % -- 08/04/23 0523 -- -- -- 88 15 100 % -- 08/04/23 0502 113/59 -- -- 80 16 100 % -- 08/04/23 0408 143/67 -- -- 85 (!) 28 -- -- 08/04/23 0310 116/68 37.1 C (98.7 F) Oral 84 16 100 % -- 08/04/23 0302 113/67 -- -- 83 18 100 % -- 08/04/23 0202 119/69 -- -- 77 14 100 % -- 08/04/23 0105 104/64 -- -- 75 16 100 % -- 08/04/23 0002 104/59 36.8 C (98.3 F) Oral 72 18 99 % -- 08/03/23 2302 95/60 -- -- 85 16 98 % -- 08/03/23 2202 100/51 -- -- 93 12 97 % -- 08/03/23 2102 110/58 -- -- 89 (!) 9 100 % -- 08/03/232042 -- -- -- 87 (!) 0 100 % -- 08/03/232041 -- -- -- 91 (!) 4 100 % -- 08/03/232000 (!) 108/49 -- -- 89 14 100 % -- 08/03/23 1922 104/84 36.6 C (97.8 F) Oral 92 21 100 % -- 08/03/23 1831 108/51 -- -- 89 19 100 % -- 08/03/23 1802 105/52 -- -- 79 24 100 % -- 08/03/23 1723 -- -- -- 87 14 98 % -- 08/03/23 1721 -- -- -- 80 19 -- -- 08/03/23 1702 109/51 -- -- 90 22 -- -- 08/03/23 1639 -- -- -- 92 18 97 % -- 08/03/23 1618 -- -- -- 85 14 98 % -- 08/03/23 1617 -- -- -- 87 17 97 % -- 08/03/23 1616 -- -- -- 84 16 97 % -- 08/03/23 1615 -- -- -- 95 15 98 % -- 08/03/23 1614 -- -- -- 88 18 97 % -- 08/03/23 1613 -- -- -- 88 15 98 % -- 08/03/23 1612 -- -- -- 91 13 98 % -- 08/03/23 1602 127/63 36.9 C (98.5 F) -- 80 13 98 % -- 08/03/23 1502 (!) 109/49 -- -- 92 16 98 % -- 08/03/23 1425 (!) 116/48 -- -- 95 19 100 % -- 08/03/23 1402 (!) 112/43 -- -- 89 24 99 % -- 08/03/23 1302 159/59 -- -- 86 16 97 % -- 08/03/23 1300 -- -- -- 91 (!) 11 96 % -- 08/03/23 1249 -- -- -- 85 (!) 10 97 % -- 08/03/23 1131 (!) 168/76 36.6 C (97.9 F) -- 89 15 98 % -- 08/03/23 1118 -- -- -- -- -- -- 1.651 m (5' 5") 08/03/23 1102 (!) 167/86 -- -- 88 13 99 % -- 08/03/23 1032 155/69 -- -- 88 15 98 % -- Physical Exam Vitals and nursing note reviewed. Constitutional: Appearance: She is obese. She is ill-appearing. Comments: Intubated and sedated, HENT: Head: Normocephalic and atraumatic. Nose: Nose normal. Mouth/Throat: Mouth: Mucous membranes are moist. Pharynx: Oropharynx is clear. Comments: Orally intubated. Eyes: Extraocular Movements: Extraocular movements intact. Pupils: Pupils are equal, round, and reactive to light. Cardiovascular: Rate and Rhythm: Normal rate and regular rhythm. Pulses: Normal pulses. Heart sounds: Normal heart sounds. Pulmonary: Effort: Pulmonary effort is normal. Breath sounds: Rhonchi present. Abdominal: General: Abdomen is flat. Bowel sounds are normal. Palpations: Abdomen is soft. Genitourinary: Comments: Jose catheter in place with decreased output. Musculoskeletal: General: Swelling present. Cervical back: Normal range of motion and neck supple. Right lower leg: Edema present. Left lower leg: Edema present. Skin: General: Skin is warm and dry. Comments: -Chronic lymphedema and stasis wounds on to bilateral lower extremities. -Bilateral feet with dry flaking skin -all folds with fungal like erythema. Neurological: Comments: Sedated but arousable. Psychiatric: Comments: Sedated, did not answer questions. Labs: Recent Labs 08/01/23 1937 08/02/23 0128 08/03/23 0015 08/03/23 0348 08/03/23 1439 08/04/23 0330 NA 140 < > 141 140 142 140 K 4.5 < > 4.0 4.0 3.4* 4.0 CL 106 < > 105 103 104 105 CO2 26 < > 27 25 29 27 BUN 64* < > 70* 67* 72* 71* CREATININE 1.49* < > 1.27* 1.36* 1.27* 1.15* GLUCOSE 148* < > 216* 234* 227* 256* CALCIUM 8.6 < > 8.4 8.3* 8.3* 8.3* PROT 5.7* -- -- 5.7* -- 5.7* BILITOT 0.6 -- -- 0.5 -- 0.5 ALKPHOS 73 -- -- 59 -- 51 AST 23 -- -- 18 -- 15 ALT 17 -- -- 15 -- 13 PROCAL -- -- 17.21* -- -- -- < > = values in this interval not displayed. Recent Labs 08/02/23 0422 08/03/23 0348 08/04/23 0330 WBC 8.2 5.4 3.6 HGB 8.7* 8.2* 7.7* HCT 26.4* 25.7* 23.9* PLT 74* 72* 71* LYMPHOPCT 7* 12.1* 23 MONOPCT 1* 6.4 12 BASOPCT -- 0.2 1 NEUTROABS -- 4.3 -- Micro: No results for input(s): "COVID19" in the last 72 hours. Collected Updated Procedure Result Status 08/02/2023 02508/04/2023 08 Blood culture Site #1 - Assess for effectiveness of treatment [[id number]] Blood, Venous Preliminary result Component Value Blood Culture No growth at 48 hours P 08/02/2023 0259 08/04/2023 0801 Blood culture Site #2 - Assess for effectiveness of treatment [[id number]] Blood, Venous Preliminary result Component Value Blood Culture No growth at 48 hours P Collected Updated Procedure Result Status 08/01/2023 0416 08/01/2023 1036 MRSA by PCR [[id number]] ESwab from Nasal Final result Component Value Staphylococcus aureus Not Detected mecA gene Not Detected 08/01/2023 0415 08/01/2023 1236 Respiratory culture and Stain [[id number]] Sputum Preliminary result Component Value Respiratory culture Culture in progress P Gram Stain Result Few Polymorphonuclear leukocytes per low power field P Few Epithelial cells per low power field P No organisms seen P 08/01/2023 0415 08/01/2023 1320 Pneumonia PCR Panel [[id number]] (Abnormal) Sputum Final result Component Value Staphylococcus aureus Not Detected Streptococcus agalactiae Not Detected Streptococcus pneumoniae Not Detected Streptococcus pyogenes Not Detected Haemophilus influenzae Not Detected Moraxella catarrhalis Not Detected Acinetobacter baumannii complex Not Detected Enterobacter cloacae complex Not Detected Escherichia coli Not Detected Klebsiella (Enterobacter) aerogenes Not Detected Klebsiella oxytoca Not Detected Klebsiella pneumoniae Not Detected Proteus spp Not Detected Pseudomonas aeruginosa Not Detected Serratia marcescens Not Detected Chlamydia pneumoniae Not Detected Legionella pneumophila Not Detected Mycoplasma pneumoniae Not Detected Adenovirus Not Detected Coronavirus Detected Abnormal Human Metapneumovirus Not Detected Human Rhinovirus/Enterovirus Detected Abnormal Influenza A Not Detected Influenza B Not Detected Parainfluenza virus Not Detected Respiratory Syncytial Virus Not Detected 07/30/2023 2153 07/30/2023 2316 SARS-CoV-2 by PCR [[id number]] Swab from Nasopharynx Final result Component Value SARS-CoV-2 Not Detected 07/30/2023 1652 08/01/2023 1102 Urine culture [[id number]] (Abnormal) Urine, Clean Catch Preliminary result Component Value Urine Culture Normal urogenital gaby present P 50,000-90,000 CFU/mL Escherichia coli Abnormal P 07/30/2023 1607 07/30/2023 1619 Occult blood x 1, stool [[id number]] Stool from Per Rectum Final result Component Value Fecal occult blood Negative 07/30/2023 1337 08/01/2023 1501 Blood culture Site #1 - Suspected Infection [[id number]] Blood, Venous Preliminary result Component Value Blood Culture No growth at 48 hours P 07/30/2023 1337 08/01/2023 0611 Blood culture Site #2 - Suspected Infection [[id number]] (Abnormal) Blood, Venous Preliminary result Component Value Blood Culture Gram-negative bacilli Panic P 07/30/2023 1337 08/01/2023 0611 Blood Culture Identification - Anaerobic [[id number]] (Abnormal) Blood, Venous Final result Component Value Escherichia coli Detected Abnormal CTX-M (ESBL gene) Detected Abnormal Lines: RIJ Radiography/Echo/Other: XR chest 1 view [[id number]] Collected: 08/01/23720 Order Status: Completed Updated: 08/01/23724 Narrative: Patient Name: SALAZAR COYLE : 1950 Exam Date/Time: 08/01/2023 06:36 Procedure: XR CHEST 1 VIEW Ordering Provider: DEL REAL CHELSEA Reason For Exam: Intubated Examination: Portable chest Indication: Intubated Comparison: Previous day Findings: The exam is limited secondary to portable technique and large patient body habitus. Leftward patient rotation also limits assessment. Endotracheal tube tip is at the level of the medial clavicles. NG tube is directed towards the stomach. Right IJ central venous catheter in similar position. Cardiac silhouette is slightly enlarged. There is blunting of left costophrenic angle. There is diffuse calcification of the aortic arch. No sizable pneumothorax however assessment of the lung apices is somewhat limited from overlying soft tissues. Impression: Impression: Limited study Cardiomegaly and calcified thoracic aorta. Report Dictated on Electronically Signed By: Austen Thurston MD Electronically Signed Date/Time: 08/01/2023 7:24 AM EDT FL GUIDANCE OR USE ONLY - NON RESULTABLE [[id number]] Resulted: 07/31/23634 Order Status: Completed Updated: 07/31/23634 Narrative: There is no interpretation needed for this exam. XR chest 1 view [[id number]] Collected: 07/31/23501 Order Status: Completed Updated: 07/31/23505 Narrative: [facility] 1950 [id number] Exam Date/Time: 07/31/2023 04:56 Procedure: XR CHEST 1 VIEW Ordering Provider: DEL REAL CHELSEA Reason For Exam: verify ETT placement EXAMINATION: XR chest AP. EXAM DATE & TIME: 07/31/2023 4:56 AM EDT INDICATION: verify ETT placement ADDITIONAL INFORMATION: 72-year-old female presents for follow-up after intubation COMPARISON: Chest x-ray dated 07/31/2023 TECHNIQUE: Frontal view of the chest was obtained. FINDINGS: Lines/support devices: An endotracheal tube is present with its distal tip approximately 1.9 cm above the candy. Unchanged right internal jugular approach central venous catheter, terminating in the region of the cavoatrial junction. An NG/OG tube is present with its distal tip coursing subdiaphragmatically and beyond the [id number]. Cardiac leads project over the chest, somewhat limiting evaluation. Cardiomediastinal silhouette: The heart is slightly enlarged. Lungs/pleura: A small left pleural effusion is seen. Right pleural spaces are clear. No evidence of pneumothorax. Osseous structures: Degenerative changes of the spine and shoulders are seen. No acute osseous abnormality is demonstrated. Other findings: None. Impression: 1. Small left pleural effusion. Underlying consolidation is not excluded. 2. Lines and support devices as above. Report Dictated on Electronically Signed By: Catarino Sue MD Electronically Signed Date/Time: 07/31/2023 5:05 AM EDT XR chest 1 view [[id number]] Collected: 07/31/23 0245 Order Status: Completed Updated: 07/31/23251 Narrative: Patient Name: SALAZAR COYLE : 1950 Exam Date/Time: 07/31/2023 01:43 Procedure: XR CHEST 1 VIEW Ordering Provider: DEL REAL CHELSEA Reason For Exam: PROCEDURES PORTABLE CHEST CLINICAL INDICATION: PROCEDURES TECHNIQUE: Portable AP COMPARISON: 07/30/2023 FINDINGS: Right IJ central line tip projects over the SVC. No focal consolidation or pulmonary edema. No pleural effusions or pneumothorax. The heart demonstrates normal size. Calcification of the thoracic aorta is noted. Degenerative change of the thoracic spine is noted. Impression: No focal consolidation or pulmonary edema. Report Dictated on Electronically Signed By: Bashir Barnes MD Electronically Signed Date/Time: 07/31/2023 2:[address] abdomen pelvis wo IV contrast [[id number]] Collected: 07/31/23223 Order Status: Completed Updated: 07/31/23235 Narrative: Patient Name: SALAZAR COYLE : 1950 Exam Date/Time: 07/31/2023 00:27 Procedure: CT ABDOMEN PELVIS WO IV CONTRAST Ordering Provider: CALDERÓN SHANNON Reason For Exam: UTI, recurrent/complicated (Female) EXAMINATION: CT of the abdomen and pelvis without contrast. EXAM DATE & TIME: 07/31/2023 12:27 AM EDT INDICATION: UTI, recurrent/complicated (Female) ADDITIONAL INFORMATION: 72-year-old female with a provided history of UTI presents for evaluation COMPARISON: CT abdomen pelvis dated 06/10/2022 LIMITATIONS: Evaluation of the vasculature as well as the solid and hollow viscera is limited due to the lack of intravenous and oral contrast. Additional limitations are present secondary to portions of the patient outside the [id number] and associated beam hardening artifact. TECHNIQUE: Contiguous multiplanar 3 mm images were obtained from the levels of the lung bases through the pelvis without contrast. Images were reformatted in coronal and sagittal projections using the raw CT data and were interpreted in conjunction with the axial images to render the findings listed below. Dose reduction was employed with automated exposure control. FINDINGS: Included images of the lower thorax: There is bibasilar scarring/atelectasis. No focal lung consolidation or pleural effusion. Stable 3 mm right lower lobe pulmonary nodule (series 4, image 7). Previously identified 1.3 cm nodule is not included on the current examination. Hepatobiliary: Unremarkable liver without biliary dilation evident. Cholelithiasis is seen. Spleen: Unremarkable. Pancreas: There is fatty atrophy of the pancreas. Adrenal glands: Unremarkable. Kidneys, ureters and bladder: There is an 8 mm left UPJ calculus with mild to moderate upstream hydronephrosis (HU = 327). Additional coarse, nonobstructing left renal calculi are noted. No evidence of right-sided hydronephrosis or nephrolithiasis. A Jose catheter is present within the urinary bladder, decompressing it and limiting evaluation. Abdominal and pelvic vasculature: Atherosclerotic vascular calcifications are present in the abdominal aorta and its proximal major branches. Gastrointestinal: No evidence of obstruction. No pericecal inflammation to suggest acute appendicitis. Peritoneum, retroperitoneum and mesentery: No free fluid or free air. Inflammatory changes surround the left kidney. Lymph nodes: No abdominal or pelvic lymphadenopathy is evident. Solid pelvic viscera: The uterus appears surgically absent. Visualized musculoskeletal structures: No acute fracture or destructive osseous lesion is identified. Multilevel spondylosis is present. The bones are diffusely osteopenic. Impression: 1. Study limited as above. Allowing for this, there is a left UPJ calculus with mild to moderate upstream hydronephrosis. 2. Stable 3 mm right lower lobe pulmonary nodule. Recommendations for follow-up as below. Previously noted 1.3 cm pulmonary nodule is not included on the current examination. 3. Additional chronic findings as above. Updated Fleischner Society Guidelines for Management of Small Pulmonary Nodules Detected on CT (2017) SOLITARY NODULE: LOW RISK PATIENT < 6 mm - No follow-up 6 - 8 mm - 6 - 12 month follow-up, then consider 18 - 24 months > 8 mm - PET/CT, biopsy, or 3 month follow-up SOLITARY NODULE: HIGH RISK PATIENT < 6 mm - Optional 6 - 12 months follow-up (suspicious morphology or upper lobe) 6 - 8 mm - 6 - 12 month follow-up, then 18 - 24 months > 8 mm - PET/CT, biopsy, or 3 month follow-up MULTIPLE NODULES: LOW RISK PATIENT (Use most suspicious) All < 6 mm - No follow-up Any > 6 mm - 3 - 6 month follow-up, then 18 - 24 months MULTIPLE NODULES: HIGH RISK PATIENT (Use most suspicious) All < 6 mm - No follow-up Any > 6 mm - 3 - 6 month follow-up, then 18 - 24 months Report Dictated on Electronically Signed By: Catarino Sue MD Electronically Signed Date/Time: 07/31/2023 2:[address] head wo IV contrast [[id number]] Collected: 07/30/23 1449 Order Status: Completed Updated: 07/30/23 145 Narrative: Patient Name: SALAZAR COYLE : 1950 Exam Date/Time: 07/30/2023 14:19 Procedure: CT HEAD WO IV CONTRAST Ordering Provider: LEMON JAY Reason For Exam: Mental status change, unknown cause Indication: Mental status change Comparison date: 06/09/2022 FINDINGS: Dose reduction was employed with automated exposure control.3 mm unenhanced imaging of the brain performed. Images viewed in multiple orthogonal planes. Acute findings: No convincing acute ischemia or infarct, mass effect or midline shift, or hemorrhage. Bony structures:Unremarkable as seen. Orbits within normal limits, limited lack of contrast. Review of the paranasal sinuses shows stable right maxillary fluid-filled partially calcified structure etiology uncertain.. Impression: No acute brain process identified. Report Dictated on Electronically Signed By: Carlos Martinez MD Electronically Signed Date/Time: 07/30/2023 2:51 PM EDT XR chest 1 view [[id number]] Collected: 07/30/23 140 Order Status: Completed Updated: 07/30/231419 Narrative: Patient Name: SAALZAR COYLE : 1950 Exam Date/Time: 07/30/2023 14:01 Procedure: XR CHEST 1 VIEW Ordering Provider: LEMON JAY Reason For Exam: ALTERED MENTAL STATUS EXAM TYPE: RADIOLOGIC EXAMINATION, CHEST, SINGLE VIEW FRONTAL (CXR SINGLE VIEW) EXAM DATE AND TIME: 07/30/2023 2:01 PM EDT INDICATION: Altered mental status COMPARISON: 06/10/2022 TECHNIQUE: A single frontal view of the thorax was obtained and reviewed. Special views: None. Impression: 1. Lines/Tubes/Devices/Hardware: Leads noted. Please confirm position and function of any catheters or attempted catheters clinically. 2. Lungs: No convincing acute process.. Limited due to portable technique. Consider follow-up with PA and lateral chest for persistent symptoms. 3. Pleura: No significant effusion. No significant pneumothorax. 4. Heart and mediastinum: Limited due to technique. 5. Upper abdomen: No acute process seen. 6. Thorax:No acute bony process Report Dictated on Electronically Signed By: Carlos Martinez MD Electronically Signed Date/Time: 07/30/2023 2:03 PM EDT 07/31/23 2D ECHO: Interpretation Summary Left Ventricle: Left ventricle size is normal. Mildly increased wall thickness. Normal left ventricular systolic function. EF by 2D Simpsons Biplane is 63%. Normal wall motion. Right Ventricle: Right ventricle size is normal. Normal systolic function. Aortic Valve: Trileaflet. No cusp thickening. Mildly calcified cusps. Mild annular calcification. No regurgitation. Valve appears to open well velocities suggest Mild stenosis of the aortic valve. AV mean gradient is 9 mmHg. AV area by continuity VTI is 2.3 cm2. Left Atrium: Left atrium is dilated. Echo Findings Left Ventricle Left ventricle size is normal. Mildly increased wall thickness. Normal left ventricular systolic function. EF by 2D Simpsons Biplane is 63%. Normal wall motion. Right Ventricle Right ventricle size is normal. Normal systolic function. Left Atrium Left atrium is dilated. Interatrial Septum No interatrial shunt visualized on color Doppler. Right Atrium Right atrium size is normal. Aortic Valve Trileaflet. No cusp thickening. Mildly calcified cusps. Mild annular calcification. No regurgitation. Valve appears to open well velocities suggest Mild stenosis of the aortic valve. AV mean gradient is 9 mmHg. AV area by continuity VTI is 2.3 cm2. Mitral Valve Not well visualized. Moderately calcified leaflets. Moderate annular calcification. Trace regurgitation. No stenosis noted. Tricuspid Valve Valve structure is normal. Mild (1+) regurgitation. Pulmonic Valve The pulmonic valve was not well visualized. Trace regurgitation. Pulmonary Artery Pulmonary artery was not well visualized. Aorta Normal sized sinuses of Valsalva and ascending aorta. IVC/Hepatic Veins IVC diameter is normal and decreases greater than 50% during inspiration; therefore the estimated right atrial pressure is normal (~3 mmHg). Pericardium No pericardial effusion. Study Details Image quality: fair. Heart rate: 86 bpm. The underlying ECG rhythm was sinus rhythm. Technical qualifiers: Technically difficult study due to patient's body habitus and procedure performed with the patient in a supine position. vented. Ultrasound enhancement agent was given to enhance imaging. Antimicrobials, Start/End Dates: Cefepime 07/29 Andres 07/29- Vanco 07/29-08/03 Impression: Septic shock. ESBL- E coli bacteremia. VDRF. ESBL-E coli UTI/ pyelonephritis. Left UPJ calculus with mild to moderate upstream hydronephrosis, s/p cystoscopy and ureteral stent placement, on 07/31/23. H/o neurogenic bladder requiring chronic use of jose catheter. Morbid obesity disorder. Plan: Pt sick due to septic shock, ESBL- E coli bacteremia, UTI/ pyelonephritis and VDRF. S/p ureteral stent placement and has chr jose catheter. Afebrile, recent blood and sputum cxs -neg so far. Discontinue vancomycin. Pt allergic to ertapenem but tolerated meropenem, continue meropenem to complete 2 weeks treatment from negative cx date (08/01), through 08/16/23. Opat in chart. She has chronic jose catheter. Surveillance blood cx x2 on 08/23/23 to document sterility. High level complexity medical decision making. Please call with any further question. Total time 50 minutes on this day of encounter includes counseling, coordinating plan of care, record and documentation review before and after visit including documentation and time not explicitly included on EMR time stamp for accounting for open encounter. 08/04/23 0812 Patient Parameters Heart Rate 81 Resp 17 SpO2 100 % Settings Vent Mode SPONT Mandatory Type PC Spontaneous Type PS Resp Rate (Set) 16 Vt (Set, mL) 400 mL FiO2 (%) 30 % PEEP/CPAP (cm H2O) 8 cm H20 Sensitivity 2 Inspiratory Time (sec) 0.9 sec Expiratory Sensitivity (%) 25 % Rise Time (%) 70 % PSV 5 cmH2O Readings PIP Observed (cm H2O) 14 cm H2O MAP (cm H2O) 10 Resp Rate Observed 27 Vt (observed, mL) 329 mL Minute Ventilation (L/min) 5.47 L/min I:E Ratio 1.3:1 Plateau Pressure (cm H2O) 19 cm H2O Dynamic Compliance (L/cm H2O) 26 L/cm H2O Static Compliance (L/cm H2O) 30 Airway Resistance 13 Total PEEP (cm H2O) 0 cm H2O Alarms High RR Alarm 40 breaths per minute Insp Pressure High (cm H2O) 40 cm H2O Insp Pressure Low (cm H2O) 11.5 cm H2O MV High (L/min) 22.5 L/min MV Low (L/min) 3.8 L/min Vt High (elodia) (mL) 1010 mL Vt Low (elodia) (mL) 200 mL Vt High (spont) (mL) 1010 mL Vt Low (spont) (mL) 200 mL High VTi 1620 Apnea Interval (sec) 20 seconds Pt failed TC trial HR=48 low VT, Trial done on PS 5 PEEP 8 Pt passes PS trial ICU Progress Note Name: Salazar Coyle : 1950(72 y.o.) Date: 08/04/23 Team: [facility]U Attending: Maya Del Real DO Subjective: Hospital Summary: 72-year-old female with history of dementia, A-fib on Eliquis, DMT2, PHOEBE, morbid obesity, chronic Jose secondary to neurogenic bladder, chronic pain, anxiety, and admission 05/2022 with ESBL E. coli bacteremia with left UPJ calculus s/p stent and extended meropenem who presented with acute encephalopathy requiring intubation, admitted with septic shock secondary to UTI, left hydronephrosis, s/p cystoscopy with ureteral stent placement 07/30. Interval Events: Diuresed yesterday. Unclear if I/Os are accurate. Sedated on fentanyl and propofol this morning. No further abdominal twitching. Scheduled Meds:ammonium lactate, , Topical, BID [Held by provider] apixaban, 5 mg, Oral, BID ascorbic acid, 250 mg, Oral, Daily atorvastatin, 20 mg, Oral, Nightly baclofen, 5 mg, Oral, TID bisacodyl, 10 mg, Rectal, BID calcium gluconate, 2,000 mg, IntraVENous, Once Diclofenac Sodium, 4 g, Topical, BID donepezil, 10 mg, Oral, Nightly famotidine (Pepcid) 20 mg in sodium chloride (PF) 0.9 % 10 mL injection, 20 mg, IntraVENous, BID gabapentin, 200 mg, Oral, TID Hydrocortisone Sod Suc (PF), 50 mg, IntraVENous, q12h insulin NPH, 25 Units, SubCUTAneous, q12h insulin regular, 0-6 Units, SubCUTAneous, q6h insulin regular, 6 Units, SubCUTAneous, q6h ipratropium-albuterol, 3 mL, Nebulization, TID lidocaine, , Topical, Once [Held by provider] lisinopril, 10 mg, Oral, Daily meropenem, 2,000 mg, IntraVENous, q8h miconazole, , Topical, BID nystatin, , Topical, BID Petrolatum, , Topical, BID senna-docusate sodium, 2 tablet, Oral, BID sertraline, 50 mg, Oral, Daily sodium chloride 0.9%, 10 mL, IntraVENous, 2 times per day sodium chloride 0.9%, 5-40 mL, IntraCATHeter, q8h sodium chloride, 4 mL, Nebulization, BID stomahesive in petrolatum, , Topical, q8h [Held by provider] vancomycin, 1,000 mg, IntraVENous, q12h Continuous Infusions:fentaNYL, 25-200 mcg/hr, Last Rate: 75 mcg/hr (08/03/232125) heparin, 5-30 Units/kg/hr, Last Rate: 11 Units/kg/hr (08/04/23 05) norepinephrine, 1-100 mcg/min, Last Rate: Stopped (08/01/23 1530) propofol, 5-50 mcg/kg/min, Last Rate: 10 mcg/kg/min (08/04/23 0307) Objective: Last Vitals: BP MAP 128/78 (08/04/23601) 94 (08/04/23601) Arterial BP MAP Temp 37.1 C (98.7 F) (08/04/23 031) Pulse 86 (08/04/23601) Resp 15 (08/04/23601) SpO2 100 % (08/04/23601) Weight (!) 159 kg (350 lb) (07/31/23 0905) BMI Body mass index is 58.24 kg/m . I/O: 08/02 0700 - 08/03 658 In: 3342 [I.V.:2277] Out: 2350 [Urine:2350] Ventilator: Ventilation Day(s): 2 Resp Rate (Set): 16 Vt (Set, mL): 400 mL FiO2 (%): 35 % PEEP/CPAP (cm H2O): 8 cm H20 Inspiratory Time (sec): 0.9 sec Oxygen Delivery: O2 Flow Rate (L/min): 4 L/min Invasive Lines / Tubes / Drains: CVC Triple Lumen 07/31/23 Non-tunneled Right Internal jugular (Active) Number of days: 0 Peripheral IV 07/30/23 Distal;Posterior;Right Forearm (Active) Number of days: 0 Peripheral IV 07/30/23 Anterior;Proximal;Right;Upper Arm (Active) Number of days: 0 NG/OG Tube Orogastric Center mouth (Active) Number of days: 0 ETT 7.5 mm (Active) Number of days: 0 Central Line Indication: Vesicant infusions/medications at high risk of causing extravasation Jose Indications: Neurogenic bladder or chronic urinary retention Restraints: Restraints Non-Violent Or Non-Self Destructive Jul 31, 2023 4:41 Am Edt Restraint order already placed. Order is valid for duration of episode. Wounds: Wound/Incision 06/09/22 Coccyx (Active) Date First Assessed/Time First Assessed: 06/09/22 1550 Present on Hospital Admission: Yes Location: Coccyx Wound Description (Comments): red/brown blanchable areas Wound Outcome: Other (Comment) Wound/Incision 06/09/22 Venous Ulcer Pretibial Right (Active) Date First Assessed/Time First Assessed: 06/09/22 1540 Present on Hospital Admission: Yes Primary Wound Type: Venous Ulcer Location: Pretibial Wound Location Orientation: Right Wound Description (Comments): multi scabbed areas Wound/Incision 06/09/22 Venous Ulcer Pretibial Left (Active) Date First Assessed/Time First Assessed: 06/09/22 1540 Primary Wound Type: Venous Ulcer Location: Pretibial Wound Location Orientation: Left Wound Description (Comments): multi scabbed areas on shins Wound/Incision 06/10/22 Traumatic Leg Left;Proximal;Upper;Posterior (Active) Date First Assessed/Time First Assessed: 06/10/22 0832 Primary Wound Type: Traumatic Location: Leg Wound Location Orientation: Left;Proximal;Upper;Posterior Wound/Incision 06/10/22 Amputation site - Toe Anterior;Right (Active) Date First Assessed/Time First Assessed: 06/10/22 1900 Present on Hospital Admission: Yes Location: Amputation site - Toe Wound Location Orientation: Anterior;Right Wound Description (Comments): amputation of right pinky toe Constitutional: General Appearance []WDWN [x]Obese []Cachectic []Thin []Ill Eyes: Inspection of Pupils/Irises Pupils round and react: [x]Yes []No Sclera: []Icteric [x]Non-Icteric Inspection of Conjunctiva/Lids Conjunctiva: []Injected [x]Non-Injected Lids: [x]Intact []Lesion Present ENT/Mouth: External Inspection of ears/nose [x] Normal [] Scar/Lesion/Mass Inspection of teeth/lips/gums Dentition: []Crow Teeth []Dentures Lips/Gums: []Intact []Lesion Present Mucosa: [][place] []Moist []Dry Neck: External Appearance Overall Appearance: [x]Normal []Lesion/Mass/Crepitus Present Trachea midline: [x]Yes []No Thyroid []Normal []Enlarged []Tender []Mass []Absent Respiratory: Respiratory effort []Labored []Non-Labored [x] Mechanically-Ventilated Auscultation [x]Clear []Crackles []Wheezes [][place] Cardiovascular: Auscultation Rate: [x]Regular []Irregular []Tachycardia []Bradycardia Rhythm: [x]Regular []Irregular Murmur: []Present []Absent Extremities Peripheral Edema: [x]Present []Absent Varicosities: []Present []Absent Gastrointestinal: Abdomen Palpation: [x]Soft []Firm []Tender [x]Non-Tender []Distended [x]Non-distended Mass: []Present [x]Absent Bowel Sounds: [x]Present []Absent Hernia: []Present []Absent Liver/Spleen: []Hepatosplenomegaly []Organomegaly Absent Musculoskeletal: Inspection of Digits and Nails Cyanosis: []Present [x]Absent Clubbing: []Present [x]Absent Ischemia: []Present [x]Absent Infection: []Present [x]Absent Extremities BLANCA Equally: Except ([]RUE []RLE []LUE []LLE) Strength/Tone: Intact and Normal ([]RUE []RLE []LUE []LLE) Skin: Inspection: Chronic LE discoloration and skin thickening []Normal []Rash []Lesion []Ulcer Palpation [x]Warm []Cool []Dry []Clammy []Nodules []Induration []Skin-tightening Cap-Refill: [x] <3 sec [] >3 seconds (delayed) Neurologic: GCS EYE: 3 - Opens to verbal commands GCS MOTOR: 5 - Localizes to pain (purposeful movements to painful stimulus) GCS Verbal: Sedated, intubated Total GCS: [] Sensation grossly intact Psych: Mental Status Alert: []Yes [x] No Oriented: []x0 []X1 []X2 []x3 Mood/Affect []Normal []Flat []Agitated []Depressed []Anxious []Calm [x]Sedated []NAD [facility] within last 24 hours- BMP: Recent Labs 08/03/23 0348 08/03/23 1439 08/04/23 0330 NA 140 142 140 K 4.0 3.4* 4.0 CL 103 104 105 CO2 25 29 27 BUN 67* 72* 71* CREATININE 1.36* 1.27* 1.15* CALCIUM 8.3* 8.3* 8.3* MG 2.1 2.0 2.1 PHOS 3.3 3.3 3.1 LFTs: Recent Labs 08/01/23 1937 08/03/23 0348 08/04/23 0330 AST 23 18 15 ALT 17 15 13 PROT 5.7* 5.7* 5.7* ALBUMIN 3.0* 3.2* 3.4* BILITOT 0.6 0.5 0.5 ALKPHOS 73 59 51 Glucose: Recent Labs 08/02/23 0128 08/02/23 0202 08/02/23 0745 08/02/23 0817 08/02/23 1330 08/02/23 1432 08/02/23 1942 08/02/23 2036 08/02/23 2232 08/02/23 2337 08/03/23 0015 08/03/23 0348 08/03/23 0528 08/03/23 1132 08/03/23 1439 08/03/23 1642 08/03/23 1812 08/03/23 2354 08/04/23 0330 08/04/23 0507 GLUCOSE 163* -- 141* -- 152* -- 106* -- -- -- 216* 234* -- -- 227* -- -- -- 256* -- POCGLU -- < > -- < > 165* < > -- < > 144* 247* -- -- 334* 265* -- 290* 302* 276* -- 349* < > = values in this interval not displayed. Procal: Recent Labs 08/03/23 0015 PROCAL 17.21* CBC: Recent Labs 08/02/23 0422 08/03/23 0348 08/04/23 0330 WBC 8.2 5.4 3.6 HGB 8.7* 8.2* 7.7* HCT 26.4* 25.7* 23.9* PLT 74* 72* 71* MCV 103.9* 104.9* 105.3* RDW 14.6 14.6 14.4 ABGs: Recent Labs 08/02/23424 PHART 7.417 [id number] 38.5 PO2ART 87.1 [id number] 24.8 SO2ART 96.8 Lactic Acid: No results for input(s): "LACTATE" in the last 72 hours. INR: Recent Labs 08/02/23421 INR 1.1 Cardiac Injury Profile: Recent Labs 08/02/23 0745 CKTOTAL 84 Labs in Last 3 months: Lab Results Component Value Date INR 1.1 08/02/2023 Microbiology- Urine Cx: Lab Results Component Value Date URINECX Normal urogenital gaby present 07/30/2023 URINECX 50,000-90,000 CFU/mL Escherichia coli (A) 07/30/2023 Blood Cx: Lab Results Component Value Date BLOODCX No growth at 24 hours 08/02/2023 BLOODCX No growth at 24 hours 08/02/2023 Sputum Cx: Lab Results Component Value Date RESPCULT No growth of normal respiratory gaby. 08/01/2023 Gram Stain: Lab Results Component Value Date LABGRAM 08/01/2023 Few Polymorphonuclear leukocytes per low power field LABGRAM Few Epithelial cells per low power field 08/01/2023 LABGRAM No organisms seen 08/01/2023 PNA PCR: Lab Results Component Value Date HUMANMETAPNE Not Detected 08/01/2023 COVID19: No results found for: COVID19 Legionella Ag: Lab Results Component Value Date LEGIONELLAPN Not Detected 08/01/2023 Strep Ag: No results for input(s): "STREPPNEUMO" in the last 72 hours. Imaging- Assessment and Plan: Principal Problem: Severe sepsis (HCC) Assessment: UTI may be related to chronic jose, esbl e coli bacteremia, right ureteral calculus s/p ureteral stent placement 07/30, neurogenic bladder with chronic Jose, WHITLEY Septic shock secondary to above, NSTEMI, A-fib on Eliquis Acute encephalopathy, dementia Intubated, PHOEBE, coronavirus and rhino/enterovirus, LLL infiltrate Choledocholithiasis Metabolic acidosis, DMT2 Anemia, thrombocytopenia Obesity Plan: Sedated with fentanyl and propofol. Sedation holiday for SBT again this morning. Intubated for airway protection on admission. Current vent settings 400 16 30 8. PCR positive for torres and rhino/enterovirus. Chest CT with LLL consolidation/atelectasis and mucous plugging. Sputum culture negative. C/w bronchial hygiene measures. Tolerated PS trial yesterday. Diuresing, will repeat SBT today for possible extubation S/p ureteral stent placement 07/30 for 8mm L UPJ calculus. Blood cultures positive for ESBL e coli. ID following, on meropenem and vanc. Repeat blood cultures NGTD. Lactic acid resolved. S/p solucortef Repeat TTE with mild . EKG with LBBB similar to prior. Abdominal wall twitching has resolved. Soft on exam and without guarding. CT A/P with GB distention and dilatation of extrahepatic duct with stones in CBD. RUQ US with GB distention and mild GB wall thickening. Hepatic profile normal. GI rec ERCP vs MRI prior to d/c. Evaluated by surgery. Jose replaced on admission. Cr improving with diuresis. Now net positive ~11L this admission, unclear if I/Os are accurate. Unable to obtain weights. Nephrology following, will continue with diuresis. 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 Random: 30.2 mcg/ml drawn 08/03 at 0330 Calculated AUC: 826 mg/L.hr Assessment/Plan: Calculated AUC is 826 mg/L.hr. Will possibly decrease dose to 1250 q 24 and continue to follow. Next level on 08/03 at 1700 to see if will need level tonight or wait until tomorrow morning 08/04/23 0530 Wean Screen SpO2>/=88% Yes FiO2</=50% Yes PEEP </=8cmH2O Yes HR <140 BPM Yes RR </= 35 breaths/min Yes MAP >/= 65mmHg Yes Arterial pH >7.30 and <7.50 Yes Safety Screen Spontaneous Breathing Trial (SBT) Proceed with SBT - No exclusion criteria met 08/03/23 1615 Patient Parameters Heart Rate 95 Resp 15 SpO2 98 % Settings Vent Mode SPONT Mandatory Type PC Spontaneous Type PS FiO2 (%) 30 % PEEP/CPAP (cm H2O) 8 cm H20 Sensitivity 2 Expiratory Sensitivity (%) 25 % Rise Time (%) 70 % PSV 5 cmH2O Readings PIP Observed (cm H2O) 14 cm H2O MAP (cm H2O) 10 Resp Rate Observed 16 Vt (observed, mL) 641 mL Minute Ventilation (L/min) 6.33 L/min I:E Ratio 1:2.7 Plateau Pressure (cm H2O) 19 cm H2O Dynamic Compliance (L/cm H2O) 45 L/cm H2O Static Compliance (L/cm H2O) 30 Airway Resistance 18 Total PEEP (cm H2O) 0 cm H2O Alarms High RR Alarm 40 breaths per minute Insp Pressure High (cm H2O) 40 cm H2O MV High (L/min) 22.5 L/min MV Low (L/min) 3.8 L/min Vt High (elodia) (mL) 1010 mL Vt Low (elodia) (mL) 200 mL Vt High (spont) (mL) 1010 mL Vt Low (spont) (mL) 200 mL Apnea Interval (sec) 20 seconds Spontaneous Breathing Trial Weaning Start Time 0903 Weaning Tidal Volume 641 mL Weaning Respiratory Rate 16 Spontaneous Minute Volume (MV) 6.33 Weaning Tolerance Good Weaning Stop Time 1616 Weaning Duration (min) 433 Spontaneous Breathing Trial (SBT) Outcome SBT Passed Started pt on TC100%, peep 5 at 09:03am; switched to PS8, peep 8 at 09:04, dropped PS to 5 and keep peep 8 at 09:05am. Patient did total of 7h and 13min on SBT trial with normal wob, normal vital signs. Family Communication Number Called: [phone] Name of Designated Family Registered Nurse Maternity: Deidra Vang Relationship: daughter Phone Call Outcome: I spoke with the individual listed above. Family Registered Nurse Maternity Updated on the Following: Hospital course Department of Internal Medicine Division of Endocrinology, Diabetes, & Metabolism Endocrinology Note Patient Name: Salazar Coyle : 1950 AGE: 72 y.o. Room/Bed: A Admission Date: 07/30/2023 Visit Date: 08/03/2023 Reason for Endocrine Consult: Hyperglycemia requiring insulin GGT, on steroids and tube feeds Provider/Team Requesting Consult: Dr. Del Real PCP: Paige Rivera DO Outpt Desktop Support Associate: Yes Dr. Woods ASSESSMENT: Type II Diabetes with hyperglycemia Urosepsis versus pyelonephritis Severe sepsis History of ESBL bacteremia requiring long dose meropenem History left UPJ calculus Chronic Jose with neurogenic bladder Leukocytosis Metabolic acidosis Lactic acidosis NAGMA CKD stage IIIb WHITLEY Hypertension Hyperlipidemia PHOEBE Noncompliance to CPAP Chronic lower extremity wounds Chronic venous stasis PLAN: Insulin drip- was discontinued Increase NPH to 25 units q 12 hours initiate regular insulin 6 units q 6 hours when tube feeding is restarted Change to low dose regular q6 hours Please notify endocrina team if steroid doses are changed or if tube feeding is resumed as insulin orders are dependent on this variable Critical care team decreased steroid dosing to BID (hydrocortisone 50mg) 08/02/2022 Insulin requirements should reduce as steroid dosing decreases ICU goal <180 GMF goal <150 POCT BG ACHS Hypoglycemia management per protocol Carb controlled diet ANTICIPATED ENDOCRINE HOME GOING RECOMMENDATIONS: Optimized for Discharge from Endocrine standpoint: No Home Going Endocrine Rx Recommendations-- Lantus -dose to be determined Humalog -dose to be determined Outpt Follow Up-- Clinical clinic endocrinology SUBJECTIVE/HPI: CHIEF COMPLAINT: Chief Complaint Patient presents with Altered Mental Status 72 YO female w/PMH dementia, T2DM, morbid obesity, PHOEBE, chronic Jose 2/2 neurogenic bladder, Anxiety and chronic pain. OF note, patient admitted May 2022 w/ ESBL E. Coli bacteremia with left UPJ calculus s/p stent and extended IV meropenem. Patient did require laser lithotripsy and stent exchange at this time. Patient arrived to [facility] ED for altered mental status. Cystoscopy, left ureteral stent placement completed 07/31/2023 Type of DM: 2 Onset of DM: Home DM Medication Regimen: Lantus 10 units nightly Humalog 3 units 3 times daily before meals DM control (last A1c/glucose data): Lab Results Component Value Date HGBA1C 9.0 (H) 07/30/2023 Today- Glucose levels as below Insulin drip was discontinued by ICU team on 08/01 pm Was started on humalog insulin q 6 hours high dose sliding scale Tube feeding currently on hold awaiting surgical evaluation of abdominal finding s per CT scan Is off sedation, opens eyes to name Remains on heparin and ABX at this time Remains sedated Noted decrease to IV solucortef to 50 mg q 12 hours Glucose Date/Time Value Ref Range Status 08/03/2023 11:32 AM 265 (H) 70 - 100 mg/dL Final 08/03/2023 05:28 AM 334 (H) 70 - 100 mg/dL Final 08/02/2023 11:37 PM 247 (H) 70 - 100 mg/dL Final 08/02/2023 10:32 PM 144 (H) 70 - 100 mg/dL Final 08/02/2023 09:34 PM 112 (H) 70 - 100 mg/dL Final 08/02/2023 08:36 PM 98 70 - 100 mg/dL Final Review of Systems Unable to perform ROS: Intubated ROS negative except for those mentioned in HPI. OBJECTIVE: Vitals: 08/03/23 0909 08/03/23 1118 08/03/23 1249 08/03/23 1300 BP: BP Location: Patient Position: Pulse: 91 85 91 Resp: 23 (!) 10 (!) 11 Temp: TempSrc: SpO2: 100% 97% 96% Weight: Height: 5' 5" (1.651 m) Physical Exam Constitutional: General: She is not in acute distress. Appearance: She is ill-appearing. Cardiovascular: Rate and Rhythm: Normal rate and regular rhythm. Pulmonary: Effort: Pulmonary effort is normal. No respiratory distress. Comments: intubated Skin: General: Skin is warm and dry. Neurological: Comments: Opens eyes to name Patient is off the unit for CT at this time. Spoke with Critical Care physician regarding plan. 24 hour intake/output: Intake/Output Summary (Last 24 hours) at 08/03/2023 1400 Last data filed at 08/03/2023 1348 Gross per 24 hour Intake 3118 ml Output 2950 ml Net 168 ml Diet: Diet, tube feeding no tray Orogastric; Vital High Protein; Continuous; Yes; 10; Q 4 Hours; 20; 45; Water; Sterile water; 30; Q 4 Hours Medications (as per EMR): HomeMeds: Current Outpatient Medications Medication Instructions acetaminophen (TYLENOL) 325 mg, Oral, 3 times daily apixaban (ELIQUIS) 5 mg, Oral, 2 times daily ascorbic acid (VITAMIN C) 250 mg, Oral, Daily atorvastatin (LIPITOR) 20 mg, Oral, Daily baclofen (Lioresal) 5 MG tablet 1 tablet, Oral, 3 times daily Calcium Carbonate-Vitamin D (Oyster Shell Calcium/D) 500-5 MG-MCG tablet 1 tablet, Oral, Daily Diclofenac Sodium (VOLTAREN) 4 g, Topical, 2 times daily donepezil (ARICEPT) 10 mg, Oral, Nightly furosemide (LASIX) 40 mg, Oral, 2 time daily gabapentin (NEURONTIN) 200 mg, Oral, 3 times daily insulin glargine (LANTUS) 10 Units, SubCUTAneous, Nightly Insulin Lispro (HUMALOG) 3 Units, SubCUTAneous, 3 times daily with meals lisinopril 10 mg, Oral, Daily nystatin (Mycostatin) 182402 UNIT/GM powder No dose, route, or frequency recorded. senna-docusate (Helena-Colace) 8.6-50 MG tablet 100 tablets, Oral, Every 24 hours sertraline (ZOLOFT) 50 mg, Oral, Daily Scheduled Meds:ammonium lactate, , Topical, BID [Held by provider] apixaban, 5 mg, Oral, BID ascorbic acid, 250 mg, Oral, Daily atorvastatin, 20 mg, Oral, Nightly baclofen, 5 mg, Oral, TID bisacodyl, 10 mg, Rectal, BID Diclofenac Sodium, 4 g, Topical, BID donepezil, 10 mg, Oral, Nightly famotidine (Pepcid) 20 mg in sodium chloride (PF) 0.9 % 10 mL injection, 20 mg, IntraVENous, BID gabapentin, 200 mg, Oral, TID Hydrocortisone Sod Suc (PF), 50 mg, IntraVENous, q12h insulin lispro, 0-18 Units, SubCUTAneous, q6h insulin NPH, 30 Units, SubCUTAneous, q12h ipratropium-albuterol, 3 mL, Nebulization, TID lidocaine, , Topical, Once [Held by provider] lisinopril, 10 mg, Oral, Daily meropenem, 2,000 mg, IntraVENous, q8h miconazole, , Topical, BID nystatin, , Topical, BID Petrolatum, , Topical, BID senna-docusate sodium, 2 tablet, Oral, BID sertraline, 50 mg, Oral, Daily sodium chloride 0.9%, 10 mL, IntraVENous, 2 times per day sodium chloride 0.9%, 5-40 mL, IntraCATHeter, q8h sodium chloride, 4 mL, Nebulization, BID stomahesive in petrolatum, , Topical, q8h vancomycin, 1,000 mg, IntraVENous, q12h Continuous Infusions:fentaNYL, 25-200 mcg/hr, Last Rate: Stopped (08/03/23829) heparin, 5-30 Units/kg/hr, Last Rate: 11 Units/kg/hr (08/03/23 08) norepinephrine, 1-100 mcg/min, Last Rate: Stopped (08/01/23 1530) propofol, 5-50 mcg/kg/min, Last Rate: Stopped (08/03/23829) PRN Meds:PRN medications: [Held by provider] acetaminophen OR [Held by provider] acetaminophen, dextrose, dextrose, glucagon (rDNA), glucose, heparin, heparin, labetalol, ondansetron ODT OR ondansetron, polyethylene glycol (PEG) 3350, sodium chloride, sodium chloride 0.9%, sodium chloride 0.9%, sodium chloride 0.9% Diagnostic Workup: I reviewed pertinent Laboratory results, Radiographic results, and Other Clinical Notes at the time of today's encounter. Labs: No components found for: "LABA1C" No components found for: "EAG" Lab Results Component Value Date NA 140 08/03/2023 K 4.0 08/03/2023 CL 103 08/03/2023 CO2 25 08/03/2023 BUN 67 (H) 08/03/2023 CREATININE 1.36 (H) 08/03/2023 GLUCOSE 234 (H) 08/03/2023 CALCIUM 8.3 (L) 08/03/2023 No results found for: "CHLPL", CHOL No results found for: "TRIG" No results found for: "HDL" No results found for: "LDLCALC" No results found for: "VLDL" No results found for: "CHOLHDLRATIO" No results found for: "CXWR12QSB" No results found for: "TSH", "O3IGKYA", "U4JFTGB", "THYROIDAB" Radiology reportsas per the Radiologist Radiology: POCT glucose meter Result Date: 07/31/2023 Performed by: [facility], [address] [place] [address] CLIA ID: [id number] POCT glucose meter Result Date: 07/31/2023 Performed by: [facility], [address] [place] [address], [place] [address] CLIA ID: [id number] POCT glucose meter Result Date: 07/31/2023 Performed by: [facility], [address] [place] [address], [place] [address] CLIA ID: [id number] POCT glucose meter Result Date: 07/31/2023 Performed by: [facility], [address] [place] [address], [place] [address] CLIA ID: [id number] POCT glucose meter Result Date: 07/31/2023 Performed by: [facility], [address] [place] [address], [place] [address] CLIA ID: [id number] POCT glucose meter Result Date: 07/31/2023 Performed by: [facility], [address] [place] [address], [place] [address] CLIA ID: [id number] POCT glucose meter Result Date: 07/31/2023 Performed by: [facility], [address] [place] [address], [place] [address] CLIA ID: [id number] POCT glucose meter Result Date: 07/31/2023 Performed by: [facility], [address] [place] [address], [place] [address] CLIA ID: [id number] POCT glucose meter Result Date: 07/31/2023 Performed by: [facility], [address] [place] [address], [place] [address] CLIA ID: [id number] POCT glucose meter Result Date: 07/31/2023 Performed by: [facility], [address] [place] [address], [place] [address] CLIA ID: [id number] POCT glucose meter Result Date: 07/31/2023 Performed by: [facility], [address] [place] [address], [place] [address] CLIA ID: [id number] POCT glucose meter Result Date: 07/31/2023 Performed by: [facility], [address] [place] [address], [place] [address] CLIA ID: [id number] POCT glucose meter Result Date: 07/31/2023 Performed by: [facility], [address] [facility] [address] CLIA ID: [id number] Transthoracic echocardiogram (TTE) complete with contrast, bubble, strain, and 3D PRN Result Date: 07/31/2023 Left Ventricle: Left ventricle size is normal. Mildly increased wall thickness. Normal left ventricular systolic function. EF by 2D Simpsons Biplane is 63%. Normal wall motion. Right Ventricle: Right ventricle size is normal. Normal systolic function. Aortic Valve: Trileaflet. No cusp thickening. Mildly calcified cusps. Mild annular calcification. No regurgitation. Valve appears to open well velocities suggest Mild stenosis of the aortic valve. AV mean gradient is 9 mmHg. AV area by continuity VTI is 2.3 cm2. Left Atrium: Left atrium is dilated. POCT glucose meter Result Date: 07/31/2023 Performed by: [facility], [address] [place] [address] CLIA ID: [id number] POCT glucose meter Result Date: 07/31/2023 Performed by: [facility], [address] [place] [address] CLIA ID: [id number] POCT glucose meter Result Date: 07/31/2023 Performed by: [facility], [address] [place] [address] CLIA ID: [id number] POCT glucose meter Result Date: 07/31/2023 Performed by: [facility], [address] [place] [address] CLIA ID: [id number] FL GUIDANCE OR USE ONLY - NON RESULTABLE Result Date: 07/31/2023 There is no interpretation needed for this exam. ECG 12 lead Sinus tachycardia IVCD, consider LBBB Electronically Signed On 07-31-2023 06:14:25 EDT by Emilie Nicole POCT glucose meter Result Date: 07/31/2023 Performed by: [facility], [address] [place] [address] CLIA ID: [id number] XR chest 1 view Result Date: 07/31/2023 Patient Name: SALAZAR COYLE : 1950 Exam Date/Time: 07/31/2023 04:56 Procedure: XR CHEST 1 VIEW Ordering Provider: DEL REAL CHELSEA Reason For Exam: verify ETT placement EXAMINATION: XR chest AP. EXAM DATE & TIME: 07/31/2023 4:56 AM EDT INDICATION: verify ETT placement ADDITIONAL INFORMATION: 72-year-old female presents for follow-up after intubation COMPARISON: Chest x-ray dated 07/31/2023 TECHNIQUE: Frontal view of the chest was obtained. FINDINGS: Lines/support devices: An endotracheal tube is present with its distal tip approximately 1.9 cm above the candy. Unchanged right internal jugular approach central venous catheter, terminating in the region of the cavoatrial junction. An NG/OG tube is present with its distal tip coursing subdiaphragmatically and beyond the googr-rn-lufi. Cardiac leads project over the chest, somewhat limiting evaluation. Cardiomediastinal silhouette: The heart is slightly enlarged. Lungs/pleura: A small left pleural effusion is seen. Right pleural spaces are clear. No evidence of pneumothorax. Osseous structures: Degenerative changes of the spine and shoulders are seen. No acute osseous abnormality is demonstrated. Other findings: None. 1. Small left pleural effusion. Underlying consolidation is not excluded. 2. Lines and support devices as above. Report Dictated on Electronically Signed By: Catarino Sue MD Electronically Signed Date/Time: 07/31/2023 5:05 AM EDT POCT glucose meter Result Date: 07/31/2023 Performed by: [facility] [place] [facility], [address] [place] [address] CLIA ID: [id number] POCT glucose meter Result Date: 07/31/2023 Performed by: [facility] [place] [facility], [address] [facility] [address] CLIA ID: [id number] XR chest 1 view Result Date: 07/31/2023 [facility] : 1950 [id number] Exam Date/Time: 07/31/2023 01:43 Procedure: XR CHEST 1 VIEW Ordering Provider: DEL REAL CHELSEA Reason For Exam: PROCEDURES PORTABLE CHEST CLINICAL INDICATION: PROCEDURES TECHNIQUE: Portable AP COMPARISON: 07/30/2023 FINDINGS: Right IJ central line tip projects over the SVC. No focal consolidation or pulmonary edema. No pleural effusions or pneumothorax. The heart demonstrates normal size. Calcification of the thoracic aorta is noted. Degenerative change of the thoracic spine is noted. No focal consolidation or pulmonary edema. Report Dictated on Electronically Signed By: Bashir Barnes MD Electronically Signed Date/Time: 07/31/2023 2:[address] abdomen pelvis wo IV contrast Result Date: 07/31/2023 Patient Name: SALAZAR COYLE : 1950 Exam Date/Time: 07/31/2023 00:27 Procedure: CT ABDOMEN PELVIS WO IV CONTRAST Ordering Provider: CALDERÓN SHANNON Reason For Exam: UTI, recurrent/complicated (Female) EXAMINATION: CT of the abdomen and pelvis without contrast. EXAM DATE & TIME: 07/31/2023 12:27 AM EDT INDICATION: UTI, recurrent/complicated (Female) ADDITIONAL INFORMATION: 72-year-old female with a provided history of UTI presents for evaluation COMPARISON: CT abdomen pelvis dated 06/10/2022 LIMITATIONS: Evaluation of the vasculature as well as the solid and hollow viscera is limited due to the lack of intravenous and oral contrast. Additional limitations are present secondary to portions of the patient outside the qqtkt-mh-spbj and associated beam hardening artifact. TECHNIQUE: Contiguous multiplanar 3 mm images were obtained from the levels of the lung bases through the pelvis without contrast. Images were reformatted in coronal and sagittal projections using the raw CT data and were interpreted in conjunction with the axial images to render the findings listed below. Dose reduction was employed with automated exposure control. FINDINGS: Included images of the lower thorax: There is bibasilar scarring/atelectasis. No focal lung consolidation or pleural effusion. Stable 3 mm right lower lobe pulmonary nodule (series 4, image 7). Previously identified 1.3 cm nodule is not included on the current examination. Hepatobiliary: Unremarkable liver without biliary dilation evident. Cholelithiasis is seen. Spleen: Unremarkable. Pancreas: There is fatty atrophy of the pancreas. Adrenal glands: Unremarkable. Kidneys, ureters and bladder: There is an 8 mm left UPJ calculus with mild to moderate upstream hydronephrosis (HU = 327). Additional coarse, nonobstructing left renal calculi are noted. No evidence of right-sided hydronephrosis or nephrolithiasis. A Jose catheter is present within the urinary bladder, decompressing it and limiting evaluation. Abdominal and pelvic vasculature: Atherosclerotic vascular calcifications are present in the abdominal aorta and its proximal major branches. Gastrointestinal: No evidence of obstruction. No pericecal inflammation to suggest acute appendicitis. Peritoneum, retroperitoneum and mesentery: No free fluid or free air. Inflammatory changes surround the left kidney. Lymph nodes: No abdominal or pelvic lymphadenopathy is evident. Solid pelvic viscera: The uterus appears surgically absent. Visualized musculoskeletal structures: No acute fracture or destructive osseous lesion is identified. Multilevel spondylosis is present. The bones are diffusely osteopenic. 1. Study limited as above. Allowing for this, there is a left UPJ calculus with mild to moderate upstream hydronephrosis. 2. Stable 3 mm right lower lobe pulmonary nodule. Recommendations for follow-up as below. Previously noted 1.3 cm pulmonary nodule is not included on the current examination. 3. Additional chronic findings as above. Updated Fleischner Society Guidelines for Management of Small Pulmonary Nodules Detected on CT (2017) SOLITARY NODULE: LOW RISK PATIENT < 6 mm - No follow-up 6 - 8 mm - 6 - 12 month follow-up, then consider 18 - 24 months > 8 mm - PET/CT, biopsy, or 3 month follow-up SOLITARY NODULE: HIGH RISK PATIENT < 6 mm - Optional 6 - 12 months follow-up (suspicious morphology or upper lobe) 6 - 8 mm - 6 - 12 month follow-up, then 18 - 24 months > 8 mm - PET/CT, biopsy, or 3 month follow-up MULTIPLE NODULES: LOW RISK PATIENT (Use most suspicious) All < 6 mm - No follow-up Any > 6 mm - 3 - 6 month follow-up, then 18 - 24 months MULTIPLE NODULES: HIGH RISK PATIENT (Use most suspicious) All < 6 mm - No follow-up Any > 6 mm - 3 - 6 month follow-up, then 18 - 24 months Report Dictated on Electronically Signed By: Catarino Sue MD Electronically Signed Date/Time: 07/31/2023 2:35 AM EDT POCT glucose meter Result Date: 07/31/2023 Performed by: [facility], [address] [place] [address] CLIA ID: [id number] ECG 12 lead Sinus or ectopic atrial rhythm Left bundle branch block Consider anterolateral infarct Compared to ECG 03/13/2021 22:47:47 Ectopic atrial rhythm now present Left bundle-branch block now present Sinus rhythm no longer present Intraventricular conduction delay no longer present T-wave abnormality no longer present Myocardial infarct finding still present Electronically Signed On 07-31-2023 02:00:48 EDT by Paige Flores POCT glucose meter Result Date: 07/31/2023 Performed by: [facility], [address] [place] [address] CLIA ID: [id number] POCT glucose meter Result Date: 07/31/2023 Performed by: [facility], [address] [place] [address] CLIA ID: [id number] POCT glucose meter Result Date: 07/31/2023 Performed by: [facility], [address] [place] [address] CLIA ID: [id number] POCT arterial blood gas Result Date: 07/31/2023 Performed by: [facility], [address] [place] [address] CLIA ID: [id number] POCT glucose meter Result Date: 07/30/2023 Performed by: [facility], [address] [place] [address] CLIA ID: [id number] POCT glucose meter Result Date: 07/30/2023 Performed by: [facility], [address] [place] [address] CLIA ID: [id number] POCT venous blood gas Result Date: 07/30/2023 Performed by: [facility], [address] [place] [address] CLIA ID: [id number] POCT glucose meter Result Date: 07/30/2023 Performed by: [facility], [address] [place] [address] CLIA ID: [id number] CT head wo IV contrast Result Date: 07/30/2023 [facility] Name: [facility] COYLE : 1950 [id number] Exam Date/Time: 07/30/2023 14:19 Procedure: CT HEAD WO IV CONTRAST Ordering Provider: LEMON JAY Reason For Exam: Mental status change, unknown cause Indication: Mental status change Comparison date: 06/09/2022 FINDINGS: Dose reduction was employed with automated exposure control.3 mm unenhanced imaging of the brain performed. Images viewed in multiple orthogonal planes. Acute findings: No convincing acute ischemia or infarct, mass effect or midline shift, or hemorrhage. Bony structures:Unremarkable as seen. Orbits within normal limits, limited lack of contrast. Review of the paranasal sinuses shows stable right maxillary fluid-filled partially calcified structure etiology uncertain.. No acute brain process identified. Report Dictated on Electronically Signed By: Carlos Martinez MD Electronically Signed Date/Time: 07/30/2023 2:51 PM EDT XR chest 1 view Result Date: 07/30/2023 Patient Name: [facility]AZAR COYLE : 1950 [id number] Exam Date/Time: 07/30/2023 14:01 Procedure: XR CHEST 1 VIEW Ordering Provider: LEMON JAY Reason For Exam: ALTERED MENTAL STATUS EXAM TYPE: RADIOLOGIC EXAMINATION, CHEST, SINGLE VIEW FRONTAL (CXR SINGLE VIEW) EXAM DATE AND TIME: 07/30/2023 2:01 PM EDT INDICATION: Altered mental status COMPARISON: 06/10/2022 TECHNIQUE: A single frontal view of the thorax was obtained and reviewed. Special views: None. 1. Lines/Tubes/Devices/Hardware: Leads noted. Please confirm position and function of any catheters or attempted catheters clinically. 2. Lungs: No convincing acute process.. Limited due to portable technique. Consider follow-up with PA and lateral chest for persistent symptoms. 3. Pleura: No significant effusion. No significant pneumothorax. 4. Heart and mediastinum: Limited due to technique. 5. Upper abdomen: No acute process seen. 6. Thorax:No acute bony process Report Dictated on Electronically Signed By: Carlos Martinez MD Electronically Signed Date/Time: 07/30/2023 2:03 PM EDT POCT venous blood gas Result Date: 07/30/2023 Performed by: [facility] [place] [facility], [address] [place] [id number] CLIA ID: [id number] POCT glucose meter Result Date: 07/30/2023 Performed by: [facility] [place] [facility], [address] [facility] [address] CLIA ID: [id number] History/Other: Past Medical History: Past Medical History: Diagnosis Date A-fib (CMS/HCC) (HCC) Anemia Diabetes ([facility]) Lymphedema Obesity Past Surgical History: History reviewed. No pertinent surgical history. Allergy(ies): Allergies Allergen Reactions Ertapenem Patient tolerated July 2022 Family History: No family history on file. Social History: Social History Tobacco Use Smoking status: Never Smokeless tobacco: Never Vaping Use Vaping Use: Never used Substance Use Topics Alcohol use: Never Drug use: Never I spent total time 35 minutes reviewing previous notes, test results, and face to face with the patient discussing the diagnosis and importance of compliance with the treatment plan as well as documenting on the day of the visit. Electronically signed by Fatuma Ramirez MSN, METHOD CONSULTANT, LICENSED VETERINARY TECHNICIAN-C, CDECS Certified Diabetes Care and Education Specialistr on 08/03/2023 2:16 PM Portions of the information within this encounter were entered using an electronic dictation system. Best attempts were made to edit/proofread the information prior to note completion. Despite the review of information, some errors may remain. If there are questions related to the information contained within the note please contact the signing physician directly. Nutrition Assessment Type and Reason for Visit: Reassess Nutrition Recommendations/Plan: Patient remains intubated and sedated following s/p cystoscopy with ureteral stent placement on 07/31/23 EN continues at goal rate, currently providin kcal, 94 g protein, 902 mL free fluid RDN to continue to monitor weekly: fluid accumulation, weight, skin integrity, trends in lab values, tolerance of enteral nutrition, clinical status, discharge planning Malnutrition Assessment: Malnutrition Status: At risk for malnutrition (Comment) (monitor ability to extubate and advance diet vs EN to begin) Context: Acute Illness Findings of the 6 clinical characteristics of malnutrition: Energy Intake: Unable to assess Weight Loss: No significant weight loss Body Fat Loss: No significant body fat loss Muscle Mass Loss: Mild muscle mass loss Clavicles (pectoralis & deltoids) Fluid Accumulation: Moderate to Severe Extremities 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 s/p cystoscopy with ureteral stent placement on 07/31/23. Remains intubated and +sedated with fentanyl and propofol. ID consulted to follow for septic shock, +EColi Bacteremia. Per Palliative care, patient s family would not want to pursue trach/PEG if it came to it. EN continues at goal, propofol over the past 24 hours providing ~ 189 lipid kcal. Estimated Daily Nutrient Needs: Energy Requirements Based On: Kcal/kg Weight Used for Energy Requirements: [place] Weight for Energy Calculation (kg): 57 kg Total Energy Requirements (kcals/day): 8805-2392 (22-25 kcal/kg IBW) Weight Used for Protein Requirements: [place] Weight in Kg Used for Protein Requirements: 57 kg Estimated Total Protein (g/day): 86-114 (1.5-2.0 g protein/kg IBW) Estimated Daily Total Fluid (ml/day): per MD Nutrition Related Findings: +3 BLE, +mild BUE edema noted. Laex score=12. +IO with a dose of diuretic this morning. Meds and labs reviewed. Fetanyl, propofol, heparin GTT. EN at goal . Wound Type: Multiple, Pressure Injury, Stage III, Moisture Associate Skin Damage, Venous Stasis (+pink area/rash to left neck fold, mid-abdomen fold, left back fold. +MASD to bilateral buttocks. +Right lyons to VLU. +Stage III PU to right knee) Current Nutrition Therapies: Diet, tube feeding no tray Orogastric; Vital High Protein; Continuous; Yes; 10; Q 4 Hours; 20; 45; Water; Sterile water; 30; Q 4 Hours Current Oral Intake Average Meal Intake: NPO Average Supplements Intake: None Ordered, NPO Enteral Nutrition Feeding Route: Orogastric EN Formula: Vital High Protein EN Feeding Regimen: Vital High Protein @ 45 mL/hr Additives/Modulars: None Water Flushes: 30 mL Q4H Current EN & Flush Order Provides: Vital High Protein @ 45 mL/hr +current propofol rate providing--> 1269 kcal, 94 g protein, 902 mL free fluid Goal EN & Flush Order Provides: Vital High Protein @ 45 mL/hr +current propofol rate providing--> 1269 kcal, 94 g protein, 902 mL free fluid Anthropometric Measures: Height: 165.1 cm (5' 5") Current Body Weight: 159 kg (350 lb 8.5 oz) Weight Source: Other (Comment) (Estimated 07/30/23; unable to obtain bedscale weight) Admission Body Weight: 72.1 kg (159 lb) (estimated) Usual Body Weight: 140 kg (308 lb 8 oz) (per [facility] Records: 303# April 2023; 299# may 2023; 311# June 2023; 308.5# 07/05/23) % Weight Change (Calculated): 13.6 [place] Body Weight (lbs) (Calculated): 125 lbs [place] Body Weight (Kg) (Calculated): 57 kg % [place] Body Weight (Calculated): 280.4 % BMI (kg/m2) (Calculated): 58.3 Weight Adjustment For: No Adjustment BMI Categories: Obese Class 3 (BMI 40.0 or greater) Nutrition Diagnosis: Increased nutrient needs related to acute injury/trauma as evidenced by (+UTI and POD#0 s/p cystoscopy with ureteral stent placement) Altered nutrition-related lab values related to cardiac dysfunction, endocrine dysfuntion as evidenced by lab values Nutrition Interventions: Nutrition Education/Counseling: Education not indicated Coordination of Nutrition Care: Continue to monitor while inpatient Plan of Care discussed with: Multi-disciplinary rounds Goals: Previous Goal Met: Progressing toward Goal(s) Goals: Tolerate nutrition support at goal rate Nutrition Monitoring and Evaluation: Behavioral-Environmental Outcomes: None Identified Food/Nutrient Intake Outcomes: Enteral Nutrition Intake/Tolerance Physical Signs/Symptoms Outcomes: Biochemical Data, GI Status, Meal Time Behavior, Hemodynamic Status, Weight, Skin, Nausea or Vomiting, Nutrition Focused Physical Findings Discharge Planning: Too soon to determine Angie Ramirez RDN, LDN, Contact: *[phone] ICU Progress Note Name: Salazar Coyle : 1950(72 y.o.) Date: 08/03/23 Team: MICU Attending: Maya Del Real DO Subjective: Hospital Summary: 72-year-old female with history of dementia, A-fib on Eliquis, DMT2, PHOEBE, morbid obesity, chronic Jose secondary to neurogenic bladder, chronic pain, anxiety, and admission 05/2022 with ESBL E. coli bacteremia with left UPJ calculus s/p stent and extended meropenem who presented with acute encephalopathy requiring intubation, admitted with septic shock secondary to UTI, left hydronephrosis, s/p cystoscopy with ureteral stent placement 07/30. Interval Events: Diuresed overnight. Remains sedated on low dose fentanyl and propofol. Awakens easily to name, intermittently following commands. Scheduled Meds:ammonium lactate, , Topical, BID [Held by provider] apixaban, 5 mg, Oral, BID ascorbic acid, 250 mg, Oral, Daily atorvastatin, 20 mg, Oral, Nightly baclofen, 5 mg, Oral, TID bisacodyl, 10 mg, Rectal, BID Diclofenac Sodium, 4 g, Topical, BID donepezil, 10 mg, Oral, Nightly famotidine (Pepcid) 20 mg in sodium chloride (PF) 0.9 % 10 mL injection, 20 mg, IntraVENous, BID gabapentin, 200 mg, Oral, TID Hydrocortisone Sod Suc (PF), 50 mg, IntraVENous, q12h insulin lispro, 0-18 Units, SubCUTAneous, q6h insulin NPH, 30 Units, SubCUTAneous, q12h ipratropium-albuterol, 3 mL, Nebulization, TID lidocaine, , Topical, Once [Held by provider] lisinopril, 10 mg, Oral, Daily meropenem, 2,000 mg, IntraVENous, q8h miconazole, , Topical, BID nystatin, , Topical, BID Petrolatum, , Topical, BID senna-docusate sodium, 2 tablet, Oral, BID sertraline, 50 mg, Oral, Daily sodium chloride 0.9%, 10 mL, IntraVENous, 2 times per day sodium chloride 0.9%, 5-40 mL, IntraCATHeter, q8h stomahesive in petrolatum, , Topical, q8h vancomycin, 1,000 mg, IntraVENous, q12h Continuous Infusions:fentaNYL, 25-200 mcg/hr, Last Rate: 75 mcg/hr (08/02/23 234) heparin, 5-30 Units/kg/hr, Last Rate: 11 Units/kg/hr (08/03/23 0855) norepinephrine, 1-100 mcg/min, Last Rate: Stopped (08/01/23 1530) propofol, 5-50 mcg/kg/min, Last Rate: 5 mcg/kg/min (08/03/23 022) Objective: Last Vitals: BP MAP 127/62 (08/03/23 07) 79 (08/03/23 07) Arterial BP MAP Temp 36.8 C (98.3 F) (08/03/23 0337) Pulse 86 (08/03/23847) Resp 16 (08/03/23847) SpO2 100 % (08/03/23847) Weight (!) 159 kg (350 lb) (07/31/23 09) BMI Body mass index is 58.24 kg/m . I/O: 08/01 699 - 08/02 658 In: 2512 [I.V.:1298] Out: 1875 [Urine:1875] Ventilator: Ventilation Day(s): 2 Resp Rate (Set): 16 Vt (Set, mL): 400 mL FiO2 (%): 30 % PEEP/CPAP (cm H2O): 8 cm H20 Inspiratory Time (sec): 0.76 sec Oxygen Delivery: O2 Flow Rate (L/min): 4 L/min Invasive Lines / Tubes / Drains: CVC Triple Lumen 07/31/23 Non-tunneled Right Internal jugular (Active) Number of days: 0 Peripheral IV 07/30/23 Distal;Posterior;Right Forearm (Active) Number of days: 0 Peripheral IV 07/30/23 Anterior;Proximal;Right;Upper Arm (Active) Number of days: 0 NG/OG Tube Orogastric Center mouth (Active) Number of days: 0 ETT 7.5 mm (Active) Number of days: 0 Central Line Indication: Vesicant infusions/medications at high risk of causing extravasation Jose Indications: Neurogenic bladder or chronic urinary retention Restraints: Restraints Non-Violent Or Non-Self Destructive Jul 31, 2023 4:41 Am Edt Restraint order already placed. Order is valid for duration of episode. Wounds: Wound/Incision 06/09/22 Coccyx (Active) Date First Assessed/Time First Assessed: 06/09/22 1550 Present on Hospital Admission: Yes Location: Coccyx Wound Description (Comments): red/brown blanchable areas Wound Outcome: Other (Comment) Wound/Incision 06/09/22 Venous Ulcer Pretibial Right (Active) Date First Assessed/Time First Assessed: 06/09/22 1540 Present on Hospital Admission: Yes Primary Wound Type: Venous Ulcer Location: Pretibial Wound Location Orientation: Right Wound Description (Comments): multi scabbed areas Wound/Incision 06/09/22 Venous Ulcer Pretibial Left (Active) Date First Assessed/Time First Assessed: 06/09/22 1540 Primary Wound Type: Venous Ulcer Location: Pretibial Wound Location Orientation: Left Wound Description (Comments): multi scabbed areas on shins Wound/Incision 06/10/22 Traumatic Leg Left;Proximal;Upper;Posterior (Active) Date First Assessed/Time First Assessed: 06/10/22 0832 Primary Wound Type: Traumatic Location: Leg Wound Location Orientation: Left;Proximal;Upper;Posterior Wound/Incision 06/10/22 Amputation site - Toe Anterior;Right (Active) Date First Assessed/Time First Assessed: 06/10/22 1900 Present on Hospital Admission: Yes Location: Amputation site - Toe Wound Location Orientation: Anterior;Right Wound Description (Comments): amputation of right pinky toe Constitutional: General Appearance []WDWN [x]Obese []Cachectic []Thin []Ill Eyes: Inspection of Pupils/Irises Pupils round and react: [x]Yes []No Sclera: []Icteric [x]Non-Icteric Inspection of Conjunctiva/Lids Conjunctiva: []Injected [x]Non-Injected Lids: [x]Intact []Lesion Present ENT/Mouth: External Inspection of ears/nose [x] Normal [] Scar/Lesion/Mass Inspection of teeth/lips/gums Dentition: []Crow Teeth []Dentures Lips/Gums: []Intact []Lesion Present Mucosa: [][place] []Moist []Dry Neck: External Appearance Overall Appearance: [x]Normal []Lesion/Mass/Crepitus Present Trachea midline: [x]Yes []No Thyroid []Normal []Enlarged []Tender []Mass []Absent Respiratory: Respiratory effort []Labored []Non-Labored [x] Mechanically-Ventilated Auscultation []Clear [x]Crackles []Wheezes []Rhonchi Cardiovascular: Auscultation Rate: [x]Regular []Irregular []Tachycardia []Bradycardia Rhythm: [x]Regular []Irregular Murmur: []Present []Absent Extremities Peripheral Edema: [x]Present []Absent Varicosities: []Present []Absent Gastrointestinal: Abdomen Palpation: [x]Soft []Firm []Tender [x]Non-Tender []Distended [x]Non-distended Mass: []Present [x]Absent Bowel Sounds: []Present []Absent Hernia: []Present []Absent Liver/Spleen: []Hepatosplenomegaly []Organomegaly Absent Musculoskeletal: Inspection of Digits and Nails Cyanosis: []Present [x]Absent Clubbing: []Present []Absent Ischemia: []Present []Absent Infection: []Present []Absent Extremities BLANCA Equally: Except ([]RUE []RLE []LUE []LLE) Strength/Tone: Intact and Normal ([]RUE []RLE []LUE []LLE) Skin: Inspection: Chronic LE discoloration and skin thickening []Normal []Rash []Lesion []Ulcer Palpation [x]Warm []Cool []Dry []Clammy []Nodules []Induration []Skin-tightening Cap-Refill: [x] <3 sec [] >3 seconds (delayed) Neurologic: GCS EYE: 3 - Opens to verbal commands GCS MOTOR: 6 - Obeys commands for movement GCS Verbal: Sedated, intubated Total GCS: [] Sensation grossly intact Psych: Mental Status Alert: []Yes [x] No Oriented: []x0 []X1 []X2 []x3 Mood/Affect []Normal []Flat []Agitated []Depressed []Anxious [x]Calm []Sedated []NAD Select Labs within last 24 hours- BMP: Recent Labs 08/02/23 1942 08/03/23 0015 08/03/23 0348 NA 141 141 140 K 4.1 4.0 4.0 CL 106 105 103 CO2 25 27 25 BUN 67* 70* 67* CREATININE 1.41* 1.27* 1.36* CALCIUM 8.4 8.4 8.3* MG 2.1 2.0 2.1 PHOS 3.1 3.2 3.3 LFTs: Recent Labs 08/01/23 0608/01/23193608/03/23 034 AST 21 23 18 ALT 16 17 15 PROT 5.8* 5.7* 5.7* ALBUMIN 3.2* 3.0* 3.2* BILITOT 0.8 0.6 0.5 ALKPHOS 81 73 59 Glucose: Recent Labs 08/01/23 1152 08/01/23 11508/01/23193608/01/23 19508/02/23 0128 08/02/23 0202 08/02/23 0745 08/02/23 0817 08/02/23 1330 08/02/23 1432 08/02/23 1737 08/02/23 1832 08/02/23 19308/02/23 1942 08/02/23 2036 08/02/23 2134 08/02/23 2232 08/02/23 2337 08/03/23 0015 08/03/23 0348 08/03/23 0528 GLUCOSE 117* -- 148* -- 163* -- 141* -- 152* -- -- -- -- 106* -- -- -- -- 216* 234* -- POCGLU -- < > -- < > -- < > -- < > 165* < > 136* 134* 129* -- 98 112* 144* 247* -- -- 334* < > = values in this interval not displayed. Procal: Recent Labs 08/01/23 0003 08/03/23 0015 PROCAL 50.38* 17.21* CBC: Recent Labs 08/01/2359908/02/2342108/03/23347 WBC 19.7* 8.2 5.4 HGB 8.8* 8.7* 8.2* HCT 26.6* 26.4* 25.7* PLT 95* 74* 72* MCV 103.5* 103.9* 104.9* RDW 14.8 14.6 14.6 ABGs: Recent Labs 08/02/23 0425 PHART 7.417 NLM9GRO 38.5 PO2ART 87.1 FPH5MPM 24.8 SO2ART 96.8 Lactic Acid: Recent Labs 07/31/23 1945 08/01/23 0003 08/01/23 0415 LACTATE 2.6* 2.2* 1.8 INR: Recent Labs 08/01/23 0600 08/02/23 0422 INR 1.1 1.1 Cardiac Injury Profile: Recent Labs 07/31/23 1148 08/02/23 0745 CKTOTAL -- 84 TROPONINI 0.567* -- Labs in Last 3 months: Lab Results Component Value Date INR 1.1 08/02/2023 Microbiology- Urine Cx: Lab Results Component Value Date URINECX Normal urogenital gaby present 07/30/2023 URINECX 50,000-90,000 CFU/mL Escherichia coli (A) 07/30/2023 Blood Cx: Lab Results Component Value Date BLOODCX No growth at 24 hours 08/02/2023 BLOODCX No growth at 24 hours 08/02/2023 Sputum Cx: Lab Results Component Value Date RESPCULT No growth of normal respiratory gaby. 08/01/2023 Gram Stain: Lab Results Component Value Date LABGRAM 08/01/2023 Few Polymorphonuclear leukocytes per low power field LABGRAM Few Epithelial cells per low power field 08/01/2023 LABGRAM No organisms seen 08/01/2023 PNA PCR: Lab Results Component Value Date HUMANMETAPNE Not Detected 08/01/2023 COVID19: No results found for: COVID19 Legionella Ag: Lab Results Component Value Date LEGIONELLAPN Not Detected 08/01/2023 Strep Ag: No results for input(s): "STREPPNEUMO" in the last 72 hours. Imaging- Assessment and Plan: Principal Problem: Severe sepsis (HCC) Assessment: UTI may be related to chronic jose, esbl e coli bacteremia, right ureteral calculus s/p ureteral stent placement 07/30, neurogenic bladder with chronic Jose, WHITLEY Septic shock secondary to above, NSTEMI, A-fib on Eliquis Acute encephalopathy, dementia Intubated, PHOEBE, coronavirus and rhino/enterovirus, LLL infiltrate Choledocholithiasis Metabolic acidosis, DMT2 Anemia, thrombocytopenia Obesity Plan: Sedated with fentanyl and propofol. Intubated for airway protection on admission. Current vent settings 400 16 30 8. Failed SBT yesterday, tolerating PS /8 today. PCR positive for torres and rhino/enterovirus. Chest CT yesterday with LLL consolidation and mucous plugging. Sputum culture and PCR pending. Started bronchial hygiene, may benefit from bronch. S/p ureteral stent placement 07/30 for 8mm L UPJ calculus. Blood cultures positive for ESBL e coli. ID following, on meropenem and vanc. Repeat blood cultures NGTD. Lactic acid resolved. Weaning solucortef Repeat TTE with mild . EKG with LBBB similar to prior. Abdominal wall twitching though soft on exam and without guarding. CT A/P with GB distention and dilatation of extrahepatic duct with stones in CBD. Hepatic profile normal. GI and surgery consulted Jose replaced on admission. Cr remains elevated. Net positive 9.2L this admission, diuresed overnight, nephrology consulted. Anemia stable, remains on heparin ggt for afib Endocrine consulted, appreciate assistance, now on NPH Bowel regimen Wound care following for topical fungal infections and pressure wounds Appreciate palliative care recs GI Prophylaxis: Pepcid IV DVT Prophylaxis: Full anticoagulation Disposition: Remain in ICU Status Critical Care Time: 45 min Total critical care time caring for this patient with life threatening, unstable organ failure, including direct patient contact, management of life support systems, review of data including imaging and labs, discussions with other team members and physicians, excluding procedures. 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 Assessment/Plan: Calculated AUC is 396 mg/L.hr. Will increase dose to 1000 q 12 and continue to follow. Next level on 08/03 at 0500 08/03/23 0533 Wean Screen SpO2>/=88% Yes FiO2</=50% Yes PEEP </=8cmH2O Yes HR <140 BPM Yes RR </= 35 breaths/min Yes MAP >/= 65mmHg Yes Arterial pH >7.30 and <7.50 Yes Safety Screen Spontaneous Breathing Trial (SBT) Proceed with SBT - No exclusion criteria met Family Communication Number Called: [phone] Name of Designated Family Registered Nurse Maternity: Deidra Vang Relationship: daughter Phone Call Outcome: I spoke with the individual listed above. Family Registered Nurse Maternity Updated on the Following: Hospital course ICU Progress Note Name: Salazar Coyle : 1950(72 y.o.) Date: 08/02/23 Team: MICU Attending: Maya Del Real DO Subjective: Hospital Summary: 72-year-old female with history of dementia, A-fib on Eliquis, DMT2, PHOEBE, morbid obesity, chronic Jose secondary to neurogenic bladder, chronic pain, anxiety, and admission 05/2022 with ESBL E. coli bacteremia with left UPJ calculus s/p stent and extended meropenem who presented with acute encephalopathy requiring intubation, admitted with septic shock secondary to UTI, left hydronephrosis, s/p cystoscopy with ureteral stent placement 07/30. Interval Events: Sedated on propofol and fentanyl this morning, follows commands. No longer requiring vasopressors. Scheduled Meds:ammonium lactate, , Topical, BID [Held by provider] apixaban, 5 mg, Oral, BID ascorbic acid, 250 mg, Oral, Daily atorvastatin, 20 mg, Oral, Nightly baclofen, 5 mg, Oral, TID bisacodyl, 10 mg, Rectal, BID Diclofenac Sodium, 4 g, Topical, BID donepezil, 10 mg, Oral, Nightly famotidine (Pepcid) 20 mg in sodium chloride (PF) 0.9 % 10 mL injection, 20 mg, IntraVENous, BID gabapentin, 200 mg, Oral, TID Hydrocortisone Sod Suc (PF), 50 mg, IntraVENous, q8h ipratropium-albuterol, 3 mL, Nebulization, TID lidocaine, , Topical, Once [Held by provider] lisinopril, 10 mg, Oral, Daily meropenem, 2,000 mg, IntraVENous, q8h miconazole, , Topical, BID nystatin, , Topical, BID Petrolatum, , Topical, BID polyethylene glycol (PEG) 3350, 17 g, Oral, Daily senna-docusate sodium, 2 tablet, Oral, BID sertraline, 50 mg, Oral, Daily sodium chloride 0.9%, 10 mL, IntraVENous, 2 times per day sodium chloride 0.9%, 5-40 mL, IntraCATHeter, q8h stomahesive in petrolatum, , Topical, q8h vancomycin, 1,500 mg, IntraVENous, q24h Continuous Infusions:fentaNYL, 25-200 mcg/hr, Last Rate: 85 mcg/hr (08/02/23 0415) heparin, 5-30 Units/kg/hr, Last Rate: 9 Units/kg/hr (08/02/23 0516) insulin regular, 1-50 Units/hr, Last Rate: 10 Units/hr (08/02/23 0817) norepinephrine, 1-100 mcg/min, Last Rate: Stopped (08/01/23 1530) propofol, 5-50 mcg/kg/min, Last Rate: 7.5 mcg/kg/min (08/02/23 0749) Objective: Last Vitals: BP MAP (!) 148/116 (08/02/23900) 126 (08/02/23900) Arterial BP MAP Temp 36.9 C (98.5 F) (08/01/232301) Pulse 111 (08/02/23900) Resp 21 (08/02/23900) SpO2 100 % (08/02/23900) Weight (!) 159 kg (350 lb) (07/31/23904) BMI Body mass index is 58.24 kg/m . I/O: 07/31 699 - 08/01 658 In: 3215 [I.V.:2762] Out: 1425 [Urine:1425] Ventilator: Ventilation Day(s): 2 Resp Rate (Set): 16 Vt (Set, mL): 400 mL FiO2 (%): 30 % PEEP/CPAP (cm H2O): 8 cm H20 Inspiratory Time (sec): 0.76 sec Oxygen Delivery: O2 Flow Rate (L/min): 4 L/min Invasive Lines / Tubes / Drains: CVC Triple Lumen 07/31/23 Non-tunneled Right Internal jugular (Active) Number of days: 0 Peripheral IV 07/30/23 Distal;Posterior;Right Forearm (Active) Number of days: 0 Peripheral IV 07/30/23 Anterior;Proximal;Right;Upper Arm (Active) Number of days: 0 NG/OG Tube Orogastric Center mouth (Active) Number of days: 0 ETT 7.5 mm (Active) Number of days: 0 Central Line Indication: Vesicant infusions/medications at high risk of causing extravasation Jose Indications: Neurogenic bladder or chronic urinary retention Restraints: Restraints Non-Violent Or Non-Self Destructive Jul 31, 2023 4:41 Am Edt Restraint order already placed. Order is valid for duration of episode. Wounds: Wound/Incision 06/09/22 Coccyx (Active) Date First Assessed/Time First Assessed: 06/09/22 1550 Present on Hospital Admission: Yes Location: Coccyx Wound Description (Comments): red/brown blanchable areas Wound Outcome: Other (Comment) Wound/Incision 06/09/22 Venous Ulcer Pretibial Right (Active) Date First Assessed/Time First Assessed: 06/09/22 1540 Present on Hospital Admission: Yes Primary Wound Type: Venous Ulcer Location: Pretibial Wound Location Orientation: Right Wound Description (Comments): multi scabbed areas Wound/Incision 06/09/22 Venous Ulcer Pretibial Left (Active) Date First Assessed/Time First Assessed: 06/09/22 1540 Primary Wound Type: Venous Ulcer Location: Pretibial Wound Location Orientation: Left Wound Description (Comments): multi scabbed areas on shins Wound/Incision 06/10/22 Traumatic Leg Left;Proximal;Upper;Posterior (Active) Date First Assessed/Time First Assessed: 06/10/22 0832 Primary Wound Type: Traumatic Location: Leg Wound Location Orientation: Left;Proximal;Upper;Posterior Wound/Incision 06/10/22 Amputation site - Toe Anterior;Right (Active) Date First Assessed/Time First Assessed: 06/10/22 1900 Present on Hospital Admission: Yes Location: Amputation site - Toe Wound Location Orientation: Anterior;Right Wound Description (Comments): amputation of right pinky toe Constitutional: General Appearance []WDWN [x]Obese []Cachectic []Thin []Ill Eyes: Inspection of Pupils/Irises Pupils round and react: [x]Yes []No Sclera: []Icteric [x]Non-Icteric Inspection of Conjunctiva/Lids Conjunctiva: []Injected [x]Non-Injected Lids: [x]Intact []Lesion Present ENT/Mouth: External Inspection of ears/nose [x] Normal [] Scar/Lesion/Mass Inspection of teeth/lips/gums Dentition: []Crow Teeth []Dentures Lips/Gums: []Intact []Lesion Present Mucosa: [][place] []Moist []Dry Neck: External Appearance Overall Appearance: [x]Normal []Lesion/Mass/Crepitus Present Trachea midline: [x]Yes []No Thyroid []Normal []Enlarged []Tender []Mass []Absent Respiratory: Respiratory effort []Labored []Non-Labored [x] Mechanically-Ventilated Auscultation [x]Clear []Crackles []Wheezes []Rhonchi Cardiovascular: Auscultation Rate: [x]Regular []Irregular []Tachycardia []Bradycardia Rhythm: [x]Regular []Irregular Murmur: []Present []Absent Extremities Peripheral Edema: [x]Present []Absent Varicosities: []Present []Absent Gastrointestinal: Abdomen Palpation: [x]Soft []Firm []Tender [x]Non-Tender []Distended [x]Non-distended Mass: []Present [x]Absent Bowel Sounds: []Present []Absent Hernia: []Present []Absent Liver/Spleen: []Hepatosplenomegaly []Organomegaly Absent Musculoskeletal: Inspection of Digits and Nails Cyanosis: []Present [x]Absent Clubbing: []Present []Absent Ischemia: []Present []Absent Infection: []Present []Absent Extremities BLANCA Equally: Except ([]RUE []RLE []LUE []LLE) Strength/Tone: Intact and Normal ([]RUE []RLE []LUE []LLE) Skin: Inspection: Chronic LE discoloration and skin thickening []Normal []Rash []Lesion []Ulcer Palpation [x]Warm []Cool []Dry []Clammy []Nodules []Induration []Skin-tightening Cap-Refill: [x] <3 sec [] >3 seconds (delayed) Neurologic: GCS EYE: 3 - Opens to verbal commands GCS MOTOR: 6 - Obeys commands for movement GCS Verbal: Sedated, intubated Total GCS: [] Sensation grossly intact Psych: Mental Status Alert: []Yes [x] No Oriented: []x0 []X1 []X2 []x3 Mood/Affect []Normal []Flat []Agitated []Depressed []Anxious [x]Calm []Sedated []NAD Select Labs within last 24 hours- BMP: Recent Labs 08/01/23193608/02/23 0128 08/02/23 0745 NA 140 139 139 K 4.5 4.2 4.1 CL 106 106 107 CO2 26 25 27 BUN 64* 63* 65* CREATININE 1.49* 1.44* 1.42* CALCIUM 8.6 8.4 8.3* MG 2.1 2.0 2.0 PHOS 3.2 3.0 3.1 LFTs: Recent Labs 07/30/23 1652 07/30/23 2248 07/31/23 1748 08/01/23 0600 08/01/231936 AST -- < > 26 21 23 ALT -- < > 21 16 17 PROT -- < > 5.8* 5.8* 5.7* ALBUMIN -- < > 3.0* 3.2* 3.0* BILITOT -- < > 0.7 0.8 0.6 BILIRUBINU Negative -- -- -- -- ALKPHOS -- < > 83 81 73 < > = values in this interval not displayed. Glucose: Recent Labs 07/30/23182907/30/23 1924 07/31/23 1148 07/31/23 1206 07/31/23 1748 07/31/23 1843 08/01/23 0003 08/01/23 0041 08/01/23 0600 08/01/23 0620 08/01/23 1152 08/01/23 1153 08/01/23 1937 08/01/23 1958 08/02/23 0100 08/02/23 0128 08/02/23 0202 08/02/23 0300 08/02/23 0411 08/02/23 0511 08/02/23 0612 08/02/23 0715 08/02/23 0745 08/02/23 0817 GLUCOSE 286* < > 257* -- 159* -- 97 -- 125* -- 117* -- 148* -- -- 163* -- -- -- -- -- -- 141* -- POCGLU -- < > -- < > -- < > -- < > -- < > -- < > -- < > 187* -- 169* 160* 138* 128* 161* 124* -- 139* BHYDRXBUT 1.71 -- -- -- -- -- -- -- -- -- -- -- -- -- -- -- -- -- -- -- -- -- -- -- < > = values in this interval not displayed. Procal: Labs 07/30/23182908/01/23 0003 PROCAL 28.53* 50.38* CBC: Labs 08/01/23208/01/23 0608/02/23 0422 WBC 21.5* 19.7* 8.2 HGB 9.0* 8.8* 8.7* HCT 27.8* 26.6* 26.4* PLT 96* 95* 74* MCV 103.3* 103.5* 103.9* RDW 14.8 14.8 14.6 ABGs: Recent Labs 07/31/23 0001 08/02/23 0425 PHART 7.317* 7.417 QXO6GLY 37.4 38.5 PO2ART 138.0* 87.1 PIN3XIF 19.1* 24.8 SO2ART 98.9 96.8 Lactic Acid: Recent Labs 07/31/23 1945 08/01/23 0003 08/01/23 0415 LACTATE 2.6* 2.2* 1.8 INR: Recent Labs 07/31/23 0508 08/01/23 0600 08/02/23 0422 INR 1.2* 1.1 1.1 Cardiac Injury Profile: Recent Labs 07/31/23 0157 07/31/23 0508 07/31/23 1148 TROPONINI 0.867* 0.881* 0.567* Labs in Last 3 months: Lab Results Component Value Date INR 1.1 08/02/2023 Microbiology- Urine Cx: Lab Results Component Value Date URINECX Normal urogenital gaby present 07/30/2023 URINECX 50,000-90,000 CFU/mL Escherichia coli (A) 07/30/2023 Blood Cx: Lab Results Component Value Date BLOODCX Blood culture incubation started 08/02/2023 BLOODCX Blood culture incubation started 08/02/2023 Sputum Cx: Lab Results Component Value Date RESPCULT No growth of normal respiratory gaby. 08/01/2023 Gram Stain: Lab Results Component Value Date LABGRAM 08/01/2023 Few Polymorphonuclear leukocytes per low power field LABGRAM Few Epithelial cells per low power field 08/01/2023 LABGRAM No organisms seen 08/01/2023 PNA PCR: Lab Results Component Value Date HUMANMETAPNE Not Detected 08/01/2023 COVID19: No results found for: COVID19 Legionella Ag: Lab Results Component Value Date LEGIONELLAPN Not Detected 08/01/2023 Strep Ag: No results for input(s): "STREPPNEUMO" in the last 72 hours. Imaging- Assessment and Plan: Principal Problem: Severe sepsis (HCC) Assessment: UTI may be related to chronic jose, esbl e coli bacteremia, right ureteral calculus s/p ureteral stent placement 07/30, neurogenic bladder with chronic Jose, WHITLEY Septic shock secondary to above, NSTEMI, A-fib on Eliquis Acute encephalopathy, dementia Intubated, PHOEBE, coronavirus and rhino/enterovirus Metabolic acidosis, DMT2 Anemia, thrombocytopenia Obesity Plan: Sedated with fentanyl and propofol. Twitching from abdomen intermittently on exam, appears to be coughing, resolves with increased sedation. Intubated for airway protection on admission. Current vent settings 400 16 30 8. ABG reviewed. Wean FiO2. SBT pending. PCR positive for torres and rhino/enterovirus S/p ureteral stent placement 07/30 for 8mm L UPJ calculus. Blood cultures positive for ESBL e coli. ID following, on meropenem and vanc. Repeat blood cultures pending. Lactic acid resolved. Weaning solucortef Repeat TTE with mild . EKG with LBBB similar to prior. WHITLEY improving, jose replaced on admission. Net positive 9.2L this admission, will diurese today as shock has resolved. 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 08/02/23 0427 Wean Screen SpO2>/=88% Yes FiO2</=50% Yes PEEP </=8cmH2O Yes HR <140 BPM Yes RR </= 35 breaths/min Yes MAP >/= 65mmHg Yes Arterial pH >7.30 and <7.50 Yes Safety Screen Spontaneous Breathing Trial (SBT) Proceed with SBT - No exclusion criteria met Images from the original note were not included. [facility] - Infectious Diseases Attending Progress Note Subjective: Follow up for Septic shock, ESBL E coli bacteremia and UTI. She remained intubated, on vent, sedated but arousable, on levophed, jose catheter in place with decreased urine output, lymphedema and stasis skin changes on both lower legs, she appeared ill. She was admitted from an ECF with altered mental status, lethargic and foul smelling; in hospital, she responded to name and noxious stimuli, her chronic jose noted with purulent material draining from catheter; she had fever (T 100.5 F), was hypotensive (BP 91/35 to 81/40); labs showed Lactic acidosis 5.6, leukocytosis WBC 13.6, bandemia 23, UA WBC 51-100, she was treated with sepsis bundle including NS 3000 ml, vancomycin and cefepime. Her CT abdomen and pelvis showed left UPJ calculus with mild to moderate upstream hydronephrosis, underwent Cystoscopy, ureteral stent placement, early AM on 07/31/23. She has h/o DM2, morbid obesity, PHOEBE, chronic Jose due to neurogenic bladder, anxiety, chronic pain, hospital admission in May of 2022 with ESBL E. Coli bacteremia. She was examined; notes, labs, and imaging were reviewed and treatment plan was discussed. Objective: Vitals: Patient Vitals for the past 24 hrs: BP Temp Temp src Pulse Resp SpO2 08/01/23 1845 122/52 -- -- 87 16 96 % 08/01/23 1830 108/52 -- -- 89 16 96 % 08/01/23 1818 (!) 80/44 -- -- 95 16 96 % 08/01/23 1803 (!) 111/45 -- -- 92 14 98 % 08/01/23 1730 147/58 -- -- 96 12 97 % 08/01/23 1613 -- -- -- 105 15 97 % 08/01/23 1600 -- -- -- 107 24 97 % 08/01/23 1548 (!) 191/77 -- -- 111 (!) 29 98 % 08/01/23 1530 (!) 183/84 -- -- 103 21 98 % 08/01/23 1500 123/64 -- -- 101 (!) 29 97 % 08/01/23 1447 -- 37 C (98.6 F) Oral -- -- -- 08/01/23 1430 129/54 -- -- 100 18 99 % 08/01/23 1400 139/57 -- -- 97 22 99 % 08/01/23 1309 -- -- -- 101 18 98 % 08/01/23 1133 149/75 -- -- 96 (!) 28 96 % 08/01/23 1118 -- -- -- 105 (!) 34 97 % 08/01/23 1103 (!) 117/44 37.5 C (99.5 F) Oral 89 18 97 % 08/01/23 1048 141/60 -- -- 90 14 97 % 08/01/23 1033 139/57 -- -- 93 14 97 % 08/01/23 1018 121/53 -- -- 93 (!) 11 97 % 08/01/23 1003 109/56 -- -- 100 16 97 % 08/01/23 0933 (!) 114/48 -- -- 111 16 97 % 08/01/23 0903 134/59 -- -- 113 22 96 % 08/01/23 0835 -- -- -- 111 16 94 % 08/01/23 0833 (!) 114/48 -- -- 108 (!) 26 94 % 08/01/23 0803 100/51 -- -- 101 16 96 % 08/01/23 0745 -- 37.3 C (99.1 F) Oral 65 20 97 % 08/01/23 0733 153/50 -- -- 94 22 95 % 08/01/23 0703 (!) 128/41 -- -- 82 16 96 % 08/01/23 0602 (!) 126/45 -- -- 70 19 97 % 08/01/23 0502 (!) 116/43 -- -- 64 16 97 % 08/01/23 0423 -- -- -- 69 18 98 % 08/01/23 0417 (!) 159/43 -- -- 68 20 98 % 08/01/23 0402 148/56 -- -- 67 16 98 % 08/01/23 0331 140/56 37.3 C (99.1 F) Oral 68 16 98 % 08/01/23 0302 98/81 -- -- 84 (!) 34 98 % 08/01/23 0247 (!) 163/47 -- -- 78 (!) 28 98 % 08/01/23 0231 (!) 156/46 -- -- 73 18 98 % 08/01/23 0217 (!) 143/102 -- -- 82 17 98 % 08/01/23 0203 (!) 130/43 -- -- 84 (!) 26 92 % 08/01/23 0147 (!) 157/48 -- -- 73 14 97 % 08/01/23 0131 (!) 161/43 -- -- 75 18 97 % 08/01/23 0002 140/50 -- -- 77 21 97 % 07/31/23 2323 -- 37.2 C (99 F) Oral -- -- -- 07/31/23 2316 (!) 127/111 -- -- 98 23 98 % 07/31/23 2302 133/91 -- -- 98 24 97 % 07/31/23 2202 (!) 139/39 -- -- 78 18 97 % 07/31/23 2132 (!) 123/39 -- -- 76 16 96 % Physical Exam Vitals and nursing note reviewed. Constitutional: Appearance: She is obese. She is ill-appearing. Comments: Intubated and sedated, HENT: Head: Normocephalic and atraumatic. Nose: Nose normal. Mouth/Throat: Mouth: Mucous membranes are moist. Pharynx: Oropharynx is clear. Comments: Orally intubated. Eyes: Extraocular Movements: Extraocular movements intact. Pupils: Pupils are equal, round, and reactive to light. Cardiovascular: Rate and Rhythm: Normal rate and regular rhythm. Pulses: Normal pulses. Heart sounds: Normal heart sounds. Pulmonary: Effort: Pulmonary effort is normal. Breath sounds: Rhonchi present. Abdominal: General: Abdomen is flat. Bowel sounds are normal. Palpations: Abdomen is soft. Genitourinary: Comments: Jose catheter in place with decreased output. Musculoskeletal: General: Swelling present. Cervical back: Normal range of motion and neck supple. Right lower leg: Edema present. Left lower leg: Edema present. Skin: General: Skin is warm and dry. Comments: -Chronic lymphedema and stasis wounds on to bilateral lower extremities. -Bilateral feet with dry flaking skin -all folds with fungal like erythema. Neurological: Comments: Sedated but arousable. Psychiatric: Comments: Sedated, did not answer questions. Labs: Recent Labs 07/30/23 1830 07/30/23 2248 07/31/23 1748 08/01/23 0003 08/01/23 0600 08/01/23 1152 08/01/23 1937 NA 135 < > 136 138 137 140 140 K 4.7 < > 4.1 3.9 4.3 4.1 4.5 CL 112* < > 104 105 105 105 106 CO2 17* < > 26 25 24 26 26 BUN 62* < > 74* 69* 64* 63* 64* CREATININE 1.43* < > 1.82* 1.76* 1.62* 1.61* 1.49* GLUCOSE 286* < > 159* 97 125* 117* 148* CALCIUM 6.3* < > 8.2* 9.0 8.6 8.4 8.6 PROT -- < > 5.8* -- 5.8* -- 5.7* BILITOT -- < > 0.7 -- 0.8 -- 0.6 ALKPHOS -- < > 83 -- 81 -- 73 AST -- < > 26 -- 21 -- 23 ALT -- < > 21 -- 16 -- 17 PROCAL 28.53* -- -- 50.38* -- -- -- < > = values in this interval not displayed. Recent Labs 07/30/23 1337 07/30/23 2248 07/31/23 0508 07/31/23 1543 08/01/23 0003 08/01/23 0600 WBC 13.9* < > 16.2* 26.5* 21.5* 19.7* HGB 11.3* < > 9.5* 9.4* 9.0* 8.8* HCT 35.2 < > 29.4* 28.2* 27.8* 26.6* PLT 183 < > 100* 107* 96* 95* LYMPHOPCT 5* -- 6* -- -- 8* MONOPCT 1* -- 4* -- -- 1* < > = values in this interval not displayed. Micro: No results for input(s): "COVID19" in the last 72 hours. Collected Updated Procedure Result Status 08/01/2023 0416 08/01/2023 1036 MRSA by PCR [[id number]] ESwab from Nasal Final result Component Value Staphylococcus aureus Not Detected mecA gene Not Detected 08/01/2023 0415 08/01/2023 1236 Respiratory culture and Stain [[id number]] Sputum Preliminary result Component Value Respiratory culture Culture in progress P Gram Stain Result Few Polymorphonuclear leukocytes per low power field P Few Epithelial cells per low power field P No organisms seen P 08/01/2023 0415 08/01/2023 1320 Pneumonia PCR Panel [[id number]] (Abnormal) Sputum Final result Component Value Staphylococcus aureus Not Detected Streptococcus agalactiae Not Detected Streptococcus pneumoniae Not Detected Streptococcus pyogenes Not Detected Haemophilus influenzae Not Detected Moraxella catarrhalis Not Detected Acinetobacter baumannii complex Not Detected Enterobacter cloacae complex Not Detected Escherichia coli Not Detected Klebsiella (Enterobacter) aerogenes Not Detected Klebsiella oxytoca Not Detected Klebsiella pneumoniae Not Detected Proteus spp Not Detected Pseudomonas aeruginosa Not Detected Serratia marcescens Not Detected Chlamydia pneumoniae Not Detected Legionella pneumophila Not Detected Mycoplasma pneumoniae Not Detected Adenovirus Not Detected Coronavirus Detected Abnormal Human Metapneumovirus Not Detected Human Rhinovirus/Enterovirus Detected Abnormal Influenza A Not Detected Influenza B Not Detected Parainfluenza virus Not Detected Respiratory Syncytial Virus Not Detected 07/30/2023 2153 07/30/2023 2316 SARS-CoV-2 by PCR [[id number]] Swab from Nasopharynx Final result Component Value SARS-CoV-2 Not Detected 07/30/2023 1652 08/01/2023 1102 Urine culture [[id number]] (Abnormal) Urine, Clean Catch Preliminary result Component Value Urine Culture Normal urogenital gaby present P 50,000-90,000 CFU/mL Escherichia coli Abnormal P 07/30/2023 1607 07/30/2023 1619 Occult blood x 1, stool [[id number]] Stool from Per Rectum Final result Component Value Fecal occult blood Negative 07/30/2023 1337 08/01/2023 1501 Blood culture Site #1 - Suspected Infection [[id number]] Blood, Venous Preliminary result Component Value Blood Culture No growth at 48 hours P 07/30/2023 1337 08/01/2023 0611 Blood culture Site #2 - Suspected Infection [[id number]] (Abnormal) Blood, Venous Preliminary result Component Value Blood Culture Gram-negative bacilli Panic P 07/30/2023 1337 08/01/2023 0611 Blood Culture Identification - Anaerobic [[id number]] (Abnormal) Blood, Venous Final result Component Value Escherichia coli Detected Abnormal CTX-M (ESBL gene) Detected Abnormal Lines: RIJ Radiography/Echo/Other: XR chest 1 view [[id number]] Collected: 08/01/23720 Order Status: Completed Updated: 08/01/23724 Narrative: Patient Name: SALAZAR COYLE : 1950 Exam Date/Time: 08/01/2023 06:36 Procedure: XR CHEST 1 VIEW Ordering Provider: DEL REAL CHELSEA Reason For Exam: Intubated Examination: Portable chest Indication: Intubated Comparison: Previous day Findings: The exam is limited secondary to portable technique and large patient body habitus. Leftward patient rotation also limits assessment. Endotracheal tube tip is at the level of the medial clavicles. NG tube is directed towards the stomach. Right IJ central venous catheter in similar position. Cardiac silhouette is slightly enlarged. There is blunting of left costophrenic angle. There is diffuse calcification of the aortic arch. No sizable pneumothorax however assessment of the lung apices is somewhat limited from overlying soft tissues. Impression: Impression: Limited study Cardiomegaly and calcified thoracic aorta. Report Dictated on Electronically Signed By: Austen Thurston MD Electronically Signed Date/Time: 08/01/2023 7:24 AM EDT FL GUIDANCE OR USE ONLY - NON RESULTABLE [[id number]] Resulted: 07/31/23634 Order Status: Completed Updated: 07/31/23634 Narrative: There is no interpretation needed for this exam. XR chest 1 view [[id number]] Collected: 07/31/23 0502 Order Status: Completed Updated: 07/31/23505 Narrative: Patient Name: SALAZAR COYLE : 1950 Exam Date/Time: 07/31/2023 04:56 Procedure: XR CHEST 1 VIEW Ordering Provider: DEL REAL CHELSEA Reason For Exam: verify ETT placement EXAMINATION: XR chest AP. EXAM DATE & TIME: 07/31/2023 4:56 AM EDT INDICATION: verify ETT placement ADDITIONAL INFORMATION: 72-year-old female presents for follow-up after intubation COMPARISON: Chest x-ray dated 07/31/2023 TECHNIQUE: Frontal view of the chest was obtained. FINDINGS: Lines/support devices: An endotracheal tube is present with its distal tip approximately 1.9 cm above the candy. Unchanged right internal jugular approach central venous catheter, terminating in the region of the cavoatrial junction. An NG/OG tube is present with its distal tip coursing subdiaphragmatically and beyond the [id number]. Cardiac leads project over the chest, somewhat limiting evaluation. Cardiomediastinal silhouette: The heart is slightly enlarged. Lungs/pleura: A small left pleural effusion is seen. Right pleural spaces are clear. No evidence of pneumothorax. Osseous structures: Degenerative changes of the spine and shoulders are seen. No acute osseous abnormality is demonstrated. Other findings: None. Impression: 1. Small left pleural effusion. Underlying consolidation is not excluded. 2. Lines and support devices as above. Report Dictated on Electronically Signed By: Catarino Sue MD Electronically Signed Date/Time: 07/31/2023 5:05 AM EDT XR chest 1 view [[id number]] Collected: 07/31/23 0245 Order Status: Completed Updated: 07/31/23251 Narrative: Patient Name: SALAZAR COYLE : 1950 Exam Date/Time: 07/31/2023 01:43 Procedure: XR CHEST 1 VIEW Ordering Provider: DEL REAL CHELSEA Reason For Exam: PROCEDURES PORTABLE CHEST CLINICAL INDICATION: PROCEDURES TECHNIQUE: Portable AP COMPARISON: 07/30/2023 FINDINGS: Right IJ central line tip projects over the SVC. No focal consolidation or pulmonary edema. No pleural effusions or pneumothorax. The heart demonstrates normal size. Calcification of the thoracic aorta is noted. Degenerative change of the thoracic spine is noted. Impression: No focal consolidation or pulmonary edema. Report Dictated on Electronically Signed By: Bashir Barnes MD Electronically Signed Date/Time: 07/31/2023 2:[address] abdomen pelvis wo IV contrast [[id number]] Collected: 07/31/23223 Order Status: Completed Updated: 07/31/23235 Narrative: Patient Name: SALAZAR COYLE : 1950 Exam Date/Time: 07/31/2023 00:27 Procedure: CT ABDOMEN PELVIS WO IV CONTRAST Ordering Provider: CALDERÓN SHANNON Reason For Exam: UTI, recurrent/complicated (Female) EXAMINATION: CT of the abdomen and pelvis without contrast. EXAM DATE & TIME: 07/31/2023 12:27 AM EDT INDICATION: UTI, recurrent/complicated (Female) ADDITIONAL INFORMATION: 72-year-old female with a provided history of UTI presents for evaluation COMPARISON: CT abdomen pelvis dated 06/10/2022 LIMITATIONS: Evaluation of the vasculature as well as the solid and hollow viscera is limited due to the lack of intravenous and oral contrast. Additional limitations are present secondary to portions of the patient outside the [id number] and associated beam hardening artifact. TECHNIQUE: Contiguous multiplanar 3 mm images were obtained from the levels of the lung bases through the pelvis without contrast. Images were reformatted in coronal and sagittal projections using the raw CT data and were interpreted in conjunction with the axial images to render the findings listed below. Dose reduction was employed with automated exposure control. FINDINGS: Included images of the lower thorax: There is bibasilar scarring/atelectasis. No focal lung consolidation or pleural effusion. Stable 3 mm right lower lobe pulmonary nodule (series 4, image 7). Previously identified 1.3 cm nodule is not included on the current examination. Hepatobiliary: Unremarkable liver without biliary dilation evident. Cholelithiasis is seen. Spleen: Unremarkable. Pancreas: There is fatty atrophy of the pancreas. Adrenal glands: Unremarkable. Kidneys, ureters and bladder: There is an 8 mm left UPJ calculus with mild to moderate upstream hydronephrosis (HU = 327). Additional coarse, nonobstructing left renal calculi are noted. No evidence of right-sided hydronephrosis or nephrolithiasis. A Jose catheter is present within the urinary bladder, decompressing it and limiting evaluation. Abdominal and pelvic vasculature: Atherosclerotic vascular calcifications are present in the abdominal aorta and its proximal major branches. Gastrointestinal: No evidence of obstruction. No pericecal inflammation to suggest acute appendicitis. Peritoneum, retroperitoneum and mesentery: No free fluid or free air. Inflammatory changes surround the left kidney. Lymph nodes: No abdominal or pelvic lymphadenopathy is evident. Solid pelvic viscera: The uterus appears surgically absent. Visualized musculoskeletal structures: No acute fracture or destructive osseous lesion is identified. Multilevel spondylosis is present. The bones are diffusely osteopenic. Impression: 1. Study limited as above. Allowing for this, there is a left UPJ calculus with mild to moderate upstream hydronephrosis. 2. Stable 3 mm right lower lobe pulmonary nodule. Recommendations for follow-up as below. Previously noted 1.3 cm pulmonary nodule is not included on the current examination. 3. Additional chronic findings as above. Updated Fleischner Society Guidelines for Management of Small Pulmonary Nodules Detected on CT (2017) SOLITARY NODULE: LOW RISK PATIENT < 6 mm - No follow-up 6 - 8 mm - 6 - 12 month follow-up, then consider 18 - 24 months > 8 mm - PET/CT, biopsy, or 3 month follow-up SOLITARY NODULE: HIGH RISK PATIENT < 6 mm - Optional 6 - 12 months follow-up (suspicious morphology or upper lobe) 6 - 8 mm - 6 - 12 month follow-up, then 18 - 24 months > 8 mm - PET/CT, biopsy, or 3 month follow-up MULTIPLE NODULES: LOW RISK PATIENT (Use most suspicious) All < 6 mm - No follow-up Any > 6 mm - 3 - 6 month follow-up, then 18 - 24 months MULTIPLE NODULES: HIGH RISK PATIENT (Use most suspicious) All < 6 mm - No follow-up Any > 6 mm - 3 - 6 month follow-up, then 18 - 24 months Report Dictated on Electronically Signed By: Catarino Sue MD Electronically Signed Date/Time: 07/31/2023 2:[address] head wo IV contrast [[id number]] Collected: 07/30/23 1449 Order Status: Completed Updated: 07/30/23 1452 Narrative: Patient Name: SALAZAR COYLE : 1950 Exam Date/Time: 07/30/2023 14:19 Procedure: CT HEAD WO IV CONTRAST Ordering Provider: LEMON JAY Reason For Exam: Mental status change, unknown cause Indication: Mental status change Comparison date: 06/09/2022 FINDINGS: Dose reduction was employed with automated exposure control.3 mm unenhanced imaging of the brain performed. Images viewed in multiple orthogonal planes. Acute findings: No convincing acute ischemia or infarct, mass effect or midline shift, or hemorrhage. Bony structures:Unremarkable as seen. Orbits within normal limits, limited lack of contrast. Review of the paranasal sinuses shows stable right maxillary fluid-filled partially calcified structure etiology uncertain.. Impression: No acute brain process identified. Report Dictated on Electronically Signed By: Carlos Martinez MD Electronically Signed Date/Time: 07/30/2023 2:51 PM EDT XR chest 1 view [[id number]] Collected: 07/30/23 1403 Order Status: Completed Updated: 07/30/23 1420 Narrative: [facility] 1950 [id number] Exam Date/Time: 07/30/2023 14:01 Procedure: XR CHEST 1 VIEW Ordering Provider: LEMON JAY Reason For Exam: ALTERED MENTAL STATUS EXAM TYPE: RADIOLOGIC EXAMINATION, CHEST, SINGLE VIEW FRONTAL (CXR SINGLE VIEW) EXAM DATE AND TIME: 07/30/2023 2:01 PM EDT INDICATION: Altered mental status COMPARISON: 06/10/2022 TECHNIQUE: A single frontal view of the thorax was obtained and reviewed. Special views: None. Impression: 1. Lines/Tubes/Devices/Hardware: Leads noted. Please confirm position and function of any catheters or attempted catheters clinically. 2. Lungs: No convincing acute process.. Limited due to portable technique. Consider follow-up with PA and lateral chest for persistent symptoms. 3. Pleura: No significant effusion. No significant pneumothorax. 4. Heart and mediastinum: Limited due to technique. 5. Upper abdomen: No acute process seen. 6. Thorax:No acute bony process Report Dictated on Electronically Signed By: Carlos Martinez MD Electronically Signed Date/Time: 07/30/2023 2:03 PM EDT 07/31/23 2D ECHO: Interpretation Summary Left Ventricle: Left ventricle size is normal. Mildly increased wall thickness. Normal left ventricular systolic function. EF by 2D Simpsons Biplane is 63%. Normal wall motion. Right Ventricle: Right ventricle size is normal. Normal systolic function. Aortic Valve: Trileaflet. No cusp thickening. Mildly calcified cusps. Mild annular calcification. No regurgitation. Valve appears to open well velocities suggest Mild stenosis of the aortic valve. AV mean gradient is 9 mmHg. AV area by continuity VTI is 2.3 cm2. Left Atrium: Left atrium is dilated. Echo Findings Left Ventricle Left ventricle size is normal. Mildly increased wall thickness. Normal left ventricular systolic function. EF by 2D Simpsons Biplane is 63%. Normal wall motion. Right Ventricle Right ventricle size is normal. Normal systolic function. Left Atrium Left atrium is dilated. Interatrial Septum No interatrial shunt visualized on color Doppler. Right Atrium Right atrium size is normal. Aortic Valve Trileaflet. No cusp thickening. Mildly calcified cusps. Mild annular calcification. No regurgitation. Valve appears to open well velocities suggest Mild stenosis of the aortic valve. AV mean gradient is 9 mmHg. AV area by continuity VTI is 2.3 cm2. Mitral Valve Not well visualized. Moderately calcified leaflets. Moderate annular calcification. Trace regurgitation. No stenosis noted. Tricuspid Valve Valve structure is normal. Mild (1+) regurgitation. Pulmonic Valve The pulmonic valve was not well visualized. Trace regurgitation. Pulmonary Artery Pulmonary artery was not well visualized. Aorta Normal sized sinuses of Valsalva and ascending aorta. IVC/Hepatic Veins IVC diameter is normal and decreases greater than 50% during inspiration; therefore the estimated right atrial pressure is normal (~3 mmHg). Pericardium No pericardial effusion. Study Details Image quality: fair. Heart rate: 86 bpm. The underlying ECG rhythm was sinus rhythm. Technical qualifiers: Technically difficult study due to patient's body habitus and procedure performed with the patient in a supine position. vented. Ultrasound enhancement agent was given to enhance imaging. Antimicrobials, Start/End Dates: Cefepime 07/29 Andres 07/29- Vanco 07/29- Impression: Septic shock. ESBL- E coli bacteremia. Acute resp failure, on vent. E coli UTI/ pyelonephritis. Left UPJ calculus with mild to moderate upstream hydronephrosis, s/p cystoscopy and ureteral stent placement, on 07/31/23. H/o neurogenic bladder requiring chronic use of jose catheter. Morbid obesity disorder. Plan: Pt very sick due to circulatory shock, intubated and on IV pressor. She has persistent lactic acidosis (4.0) and worsening renal function (Cr 1.79). s/p ureteral stent placement and has chr jose catheter, however, urine output decreased. Await sputum cx results. Rept blood cx x2 in AM. Continue present antimicrobials High level complexity medical decision making. Will follow. Total time 50 minutes on this day of encounter includes counseling, coordinating plan of care, record and documentation review before and after visit including documentation and time not explicitly included on EMR time stamp for accounting for open encounter. Family Communication Number Called: [phone] Name of Designated Family Registered Nurse Maternity: Deidra Vang Relationship: daughter Phone Call Outcome: I spoke with the individual listed above. Family Registered Nurse Maternity Updated on the Following: Hospital course Antifungal to skin folds per wound care, zinc to blanchable coccyx, xeroform to open area under abd pannis Excoriation in multiple skin folds, posterior r knee, neck. L side of back, abd pannis, under breast, antifungal applied 08/01/23 0535 Wean Screen SpO2>/=88% Yes FiO2</=50% Yes PEEP </=8cmH2O Yes HR <140 BPM Yes RR </= 35 breaths/min Yes MAP >/= 65mmHg No Arterial pH >7.30 and <7.50 Yes Safety Screen Spontaneous Breathing Trial (SBT) Proceed with SBT - No exclusion criteria met (MAP 62) Spontaneous Breathing Trial Weaning Start Time 0833 Weaning Tidal Volume 150 mL Weaning Respiratory Rate 33 Total RSBI 140 Weaning Tolerance Unable to tolerate Weaning Stop Time 0836 Weaning Duration (min) 3 Spontaneous Breathing Trial (SBT) Outcome RSBI>105 - SBT failure Patient failed immediately ICU Progress Note Name: Salazar Coyle : 1950(72 y.o.) Date: 08/01/23 Team: MICU Attending: Maya Del Real DO Subjective: Hospital Summary: 72-year-old female with history of dementia, A-fib on Eliquis, DMT2, PHOEBE, morbid obesity, chronic Jose secondary to neurogenic bladder, chronic pain, anxiety, and admission 05/2022 with ESBL E. coli bacteremia with left UPJ calculus s/p stent and extended meropenem who presented with acute encephalopathy requiring intubation, admitted with septic shock secondary to UTI, left hydronephrosis, s/p cystoscopy with ureteral stent placement 07/30. Interval Events: Alert this morning on fentanyl ggt. Levophed continues to be weaned. Scheduled Meds:acetaminophen, 1,000 mg, IntraVENous, q8h [Held by provider] apixaban, 5 mg, Oral, BID ascorbic acid, 250 mg, Oral, Daily atorvastatin, 20 mg, Oral, Nightly baclofen, 5 mg, Oral, TID bisacodyl, 10 mg, Rectal, BID Diclofenac Sodium, 4 g, Topical, BID donepezil, 10 mg, Oral, Nightly famotidine (Pepcid) 20 mg in sodium chloride (PF) 0.9 % 10 mL injection, 20 mg, IntraVENous, BID gabapentin, 200 mg, Oral, TID Hydrocortisone Sod Suc (PF), 50 mg, IntraVENous, q6h ipratropium-albuterol, 3 mL, Nebulization, TID lactated ringers, 1,000 mL, IntraVENous, Once lidocaine, , Topical, Once [Held by provider] lisinopril, 10 mg, Oral, Daily meropenem, 2,000 mg, IntraVENous, q8h miconazole, , Topical, BID nystatin, , Topical, BID Petrolatum, , Topical, BID polyethylene glycol (PEG) 3350, 17 g, Oral, Daily senna-docusate sodium, 2 tablet, Oral, BID sertraline, 50 mg, Oral, Daily sodium chloride 0.9%, 10 mL, IntraVENous, 2 times per day sodium chloride 0.9%, 5-40 mL, IntraCATHeter, q8h stomahesive in petrolatum, , Topical, q8h vancomycin, 1,500 mg, IntraVENous, q24h Continuous Infusions:fentaNYL, 25-200 mcg/hr, Last Rate: Stopped (08/01/23 0752) heparin, 5-30 Units/kg/hr, Last Rate: 7 Units/kg/hr (08/01/23 0744) insulin regular, 1-50 Units/hr, Last Rate: 7 Units/hr (08/01/23 0729) norepinephrine, 1-100 mcg/min, Last Rate: 6 mcg/min (08/01/23 0811) Objective: Last Vitals: BP MAP (!) 126/45 (08/01/23601) 67 (08/01/23601) Arterial BP MAP Temp 37.3 C (99.1 F) (08/01/23 0331) Pulse 70 (08/01/23601) Resp 19 (08/01/23601) SpO2 97 % (08/01/23601) Weight (!) 159 kg (350 lb) (07/31/23 0905) BMI Body mass index is 58.24 kg/m . I/O: 07/30 699 - 07/31 658 In: 4784.2 [I.V.:4584.2] Out: 1325 [Urine:1325] Ventilator: Resp Rate (Set): 16 Vt (Set, mL): 400 mL FiO2 (%): 30 % PEEP/CPAP (cm H2O): 8 cm H20 Inspiratory Time (sec): 0.76 sec Oxygen Delivery: O2 Flow Rate (L/min): 4 L/min Invasive Lines / Tubes / Drains: CVC Triple Lumen 07/31/23 Non-tunneled Right Internal jugular (Active) Number of days: 0 Peripheral IV 07/30/23 Distal;Posterior;Right Forearm (Active) Number of days: 0 Peripheral IV 07/30/23 Anterior;Proximal;Right;Upper Arm (Active) Number of days: 0 NG/OG Tube Orogastric Center mouth (Active) Number of days: 0 ETT 7.5 mm (Active) Number of days: 0 Central Line Indication: Vesicant infusions/medications at high risk of causing extravasation Jose Indications: Neurogenic bladder or chronic urinary retention Restraints: Restraints Non-Violent Or Non-Self Destructive Jul 31, 2023 4:41 Am Edt Restraint order already placed. Order is valid for duration of episode. Wounds: Wound/Incision 06/09/22 Coccyx (Active) Date First Assessed/Time First Assessed: 06/09/22 1550 Present on Hospital Admission: Yes Location: Coccyx Wound Description (Comments): red/brown blanchable areas Wound Outcome: Other (Comment) Wound/Incision 06/09/22 Venous Ulcer Pretibial Right (Active) Date First Assessed/Time First Assessed: 06/09/22 1540 Present on Hospital Admission: Yes Primary Wound Type: Venous Ulcer Location: Pretibial Wound Location Orientation: Right Wound Description (Comments): multi scabbed areas Wound/Incision 06/09/22 Venous Ulcer Pretibial Left (Active) Date First Assessed/Time First Assessed: 06/09/22 1540 Primary Wound Type: Venous Ulcer Location: Pretibial Wound Location Orientation: Left Wound Description (Comments): multi scabbed areas on shins Wound/Incision 06/10/22 Traumatic Leg Left;Proximal;Upper;Posterior (Active) Date First Assessed/Time First Assessed: 06/10/22 0832 Primary Wound Type: Traumatic Location: Leg Wound Location Orientation: Left;Proximal;Upper;Posterior Wound/Incision 06/10/22 Amputation site - Toe Anterior;Right (Active) Date First Assessed/Time First Assessed: 06/10/221899 Present on Hospital Admission: Yes Location: Amputation site - Toe Wound Location Orientation: Anterior;Right Wound Description (Comments): amputation of right pinky toe Constitutional: General Appearance []WDWN [x]Obese []Cachectic []Thin []Ill Eyes: Inspection of Pupils/Irises Pupils round and react: [x]Yes []No Sclera: []Icteric [x]Non-Icteric Inspection of Conjunctiva/Lids Conjunctiva: []Injected [x]Non-Injected Lids: [x]Intact []Lesion Present ENT/Mouth: External Inspection of ears/nose [x] Normal [] Scar/Lesion/Mass Inspection of teeth/lips/gums Dentition: []Crow Teeth []Dentures Lips/Gums: []Intact []Lesion Present Mucosa: [][place] []Moist []Dry Neck: External Appearance Overall Appearance: [x]Normal []Lesion/Mass/Crepitus Present Trachea midline: [x]Yes []No Thyroid []Normal []Enlarged []Tender []Mass []Absent Respiratory: Respiratory effort []Labored []Non-Labored [x] Mechanically-Ventilated Auscultation [x]Clear []Crackles []Wheezes [][place] Cardiovascular: Auscultation Rate: [x]Regular []Irregular []Tachycardia []Bradycardia Rhythm: [x]Regular []Irregular Murmur: []Present []Absent Extremities Peripheral Edema: [x]Present []Absent Varicosities: []Present []Absent Gastrointestinal: Abdomen Palpation: [x]Soft []Firm []Tender [x]Non-Tender []Distended [x]Non-distended Mass: []Present [x]Absent Bowel Sounds: []Present []Absent Hernia: []Present []Absent Liver/Spleen: []Hepatosplenomegaly []Organomegaly Absent Musculoskeletal: Inspection of Digits and Nails Cyanosis: []Present [x]Absent Clubbing: []Present []Absent Ischemia: []Present []Absent Infection: []Present []Absent Extremities BLANCA Equally: Except ([]RUE []RLE []LUE []LLE) Strength/Tone: Intact and Normal ([]RUE []RLE []LUE []LLE) Skin: Inspection: Chronic LE discoloration and skin thickening []Normal []Rash []Lesion []Ulcer Palpation [x]Warm []Cool []Dry []Clammy []Nodules []Induration []Skin-tightening Cap-Refill: [x] <3 sec [] >3 seconds (delayed) Neurologic: GCS EYE: 4 - Opens spontaneously GCS MOTOR: 6 - Obeys commands for movement GCS Verbal: Sedated, intubated Total GCS: [] Sensation grossly intact Psych: Mental Status Alert: [x]Yes [] No Oriented: []x0 []X1 []X2 []x3 Mood/Affect []Normal []Flat []Agitated []Depressed []Anxious [x]Calm []Sedated []NAD [facility] within last 24 hours- BMP: Recent Labs 07/31/23174708/01/23 0003 08/01/23 0600 NA 136 138 137 K 4.1 3.9 4.3 CL 104 105 105 CO2 24 BUN 74* 69* 64* CREATININE 1.82* 1.76* 1.62* CALCIUM 8.2* 9.0 8.6 MG 2.0 2.0 1.9 PHOS 3.2 3.2 3.0 LFTs: Recent Labs 07/30/23 1652 07/30/23224707/31/23 0508 07/31/23 1748 08/01/23 0600 AST -- < > 30 26 21 ALT -- < > 25 21 16 PROT -- < > 5.9* 5.8* 5.8* ALBUMIN -- < > 3.3* 3.0* 3.2* BILITOT -- < > 0.8 0.7 0.8 BILIRUBINU Negative -- -- -- -- ALKPHOS -- < > 71 83 81 < > = values in this interval not displayed. Glucose: Recent Labs 07/30/23 1337 07/30/23 1830 07/30/23 1924 07/30/23 2248 07/30/23 2346 07/31/23 0508 07/31/23 0535 07/31/23 1148 07/31/23 1206 07/31/23 1748 07/31/23 1843 08/01/23 0003 08/01/23 0041 08/01/23 0146 08/01/23 0248 08/01/23 0347 08/01/23 0445 08/01/23 0551 08/01/23 0600 08/01/23 0620 08/01/23 0727 GLUCOSE 326* 286* -- 343* -- 289* -- 257* -- 159* -- 97 -- -- -- -- -- -- 125* -- -- POCGLU -- -- < > -- < > -- < > -- < > -- < > -- 101* 110* 104* 122* 99 130* -- 128* 138* BHYDRXBUT -- 1.71 -- -- -- -- -- -- -- -- -- -- -- -- -- -- -- -- -- -- -- < > = values in this interval not displayed. Procal: Recent Labs 07/30/23 1830 08/01/23 0003 PROCAL 28.53* 50.38* CBC: Recent Labs 07/31/23 1543 08/01/23 0003 08/01/23 0600 WBC 26.5* 21.5* 19.7* HGB 9.4* 9.0* 8.8* HCT 28.2* 27.8* 26.6* PLT 107* 96* 95* MCV 103.7* 103.3* 103.5* RDW 15.0 14.8 14.8 ABGs: Recent Labs 07/31/23 0001 PHART 7.317* [id number] 37.4 PO2ART 138.0* [id number] 19.1* SO2ART 98.9 Lactic Acid: Recent Labs 07/31/23 1945 08/01/23 0003 08/01/23 0415 LACTATE 2.6* 2.2* 1.8 INR: Recent Labs 07/31/23 0508 08/01/23 0600 INR 1.2* 1.1 Cardiac Injury Profile: Recent Labs 07/31/23 0157 07/31/23 0508 07/31/23 1148 TROPONINI 0.867* 0.881* 0.567* Labs in Last 3 months: Lab Results Component Value Date INR 1.1 08/01/2023 Microbiology- Urine Cx: Lab Results Component Value Date URINECX 01/08/2023 Multiple species present; probable contamination; repeat suggested Blood Cx: Lab Results Component Value Date BLOODCX No growth at 24 hours 07/30/2023 BLOODCX Gram-negative bacilli (AA) 07/30/2023 Sputum Cx: No results found for: RESPCULT Gram Stain: Lab Results Component Value Date LABGRAM (A) 06/10/2022 Many Polymorphonuclear leukocytes per low power field LABGRAM Moderate Gram positive cocci in clusters (A) 06/10/2022 LABGRAM Few Gram positive bacilli (A) 06/10/2022 LABGRAM Rare Gram negative bacilli (A) 06/10/2022 PNA PCR: No results found for: HUMANMETAPNE COVID19: No results found for: COVID19 Legionella Ag: No results found for: LEGIONELLAPN Strep Ag: No results for input(s): "STREPPNEUMO" in the last 72 hours. Imaging- Assessment and Plan: Principal Problem: Severe sepsis (HCC) Assessment: UTI, e coli bacteremia, right ureteral calculus s/p ureteral stent placement 07/30, neurogenic bladder with chronic Jose, WHITLEY Septic shock secondary to above, NSTEMI, A-fib on Eliquis Acute encephalopathy, dementia Intubated, PHOEBE Metabolic acidosis, DMT2 Anemia, thrombocytopenia Obesity Plan: Sedated with fentanyl Intubated for airway protection on admission. Current vent settings 400 16 30 8. ABG reviewed. Wean FiO2. Failed SBT today S/p ureteral stent placement yesterday for 8mm L UPJ calculus. Blood cultures positive for ESBL e coli. ID following, on meropenem and vanc. Repeat blood cultures tomorrow. Levophed requirements improving, now on 6mcg/min. Lactic acid resolved. Started on stress dose solucortef. Repeat TTE with mild . NSTEMI improving. EKG with LBBB similar to prior. WHITLEY improving, jose replaced on admission. Net positive 7.5L this admission, likely will diurese once hypotension resolves Anemia stable, remains on heparin ggt for afib Remains on insulin ggt for hyperglycemia, will continue today as starting stress dose steroids Bowel regimen GI Prophylaxis: Pepcid IV DVT Prophylaxis: Heparin subcutaneous and Full anticoagulation Disposition: Remain in ICU Status Critical Care Time: 50 min Total critical care time caring for this patient with life threatening, unstable organ failure, including direct patient contact, management of life support systems, review of data including imaging and labs, discussions with other team members and physicians, excluding procedures. Generalized tremors noted at shift change and with any stimulation. No change in LOC. Pt able to follow commands. 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 Random: 18 mcg/ml drawn 08/01/23 at 0600 Calculated AUC: 468 mg/L.hr Assessment/Plan: Calculated AUC is therapeutic at 468 mg/L.hr. Will continue dose and continue to follow. 08/01/23 0535 Wean Screen SpO2>/=88% Yes FiO2</=50% Yes PEEP </=8cmH2O Yes HR <140 BPM Yes RR </= 35 breaths/min Yes MAP >/= 65mmHg No Arterial pH >7.30 and <7.50 Yes Safety Screen Spontaneous Breathing Trial (SBT) Proceed with SBT - No exclusion criteria met (MAP 62) Images from the original note were not included. [facility] Urology Inpatient Progress Note 07/31/2023 at 2:02 PM PATIENT NAME: Salazar Coyle DATE OF : 1950 ADMISSION DATE: 07/30/2023 1:00 PM Room#: [id number] A Assessment 74-year-old female with septic stone, postop day 0 status post cystoscopy, LEFT ureteral stent placement by Dr. Vásquez Plan Continue medical management per critical care team. Maintain Jose catheter (chronic) as this in combination with ureteral stent will help with maximal drainage. Current leukocytosis, WBC 16.2 (20.1) Continue with broad-spectrum antibiotics pending final culture results. Primary team with the help of infectious disease are able to tailor antibiotics based on final culture results. Appreciate IDs assistance. Continue to trend renal function. Creatinine 1.79 with GFR of 29.5. Baseline serum creatinine appears to be ~0.9 Continue documenting strict I's and O's as ordered Patient is as of now for definitive stone treatment on 09/04/2023. Will have patient follow-up in office on 08/22/2023 for catheter change and repeat urine culture (preoperative) at that time. No further urologic intervention necessary at this time. Urology will sign off Please Secure Chat on-call provider with questions, concerns or changes in patient's urologic status. Julio Cesar Velazquez, AMRIT, METHOD CONSULTANT, [facility] Subjective: Patient postop day #0 status post cystoscopy, LEFT ureteral stent placement by Dr. Vásquez Patient currently in the ICU intubated and sedated with nurse at bedside. Past Medical History: Past Medical History: Diagnosis Date A-fib (CMS/HCC) (HCC) Anemia Diabetes (HCC) Lymphedema Obesity Objective: Vitals: BP 137/50 (BP Location: Left arm, Patient Position: Lying) Pulse 80 Temp 37.3 C (99.1 F) (Oral) Resp 17 Ht 5' 5" (1.651 m) Wt (!) 350 lb (159 kg) SpO2 97% BMI 58.24 kg/m Physical Exam Vitals reviewed. Constitutional: Appearance: She is morbidly obese. Interventions: She is sedated and intubated. Pulmonary: Effort: She is intubated. Genitourinary: Comments: Jose catheter in place draining light peter-colored, clear output LABS: CBC: Recent Labs 07/30/23 1337 07/30/23 2248 07/31/23 0508 WBC 13.9* 20.1* 16.2* HGB 11.3* 10.7* 9.5* HCT 35.2 33.0* 29.4* PLT 183 136* 100* Lab Results Component Value Date LACTATE 4.0 (HH) 07/31/2023 PROCAL 28.53 (H) 07/30/2023 BMP: Recent Labs 07/30/23 2248 07/31/23 0508 07/31/23 1148 NA 136 139 137 K 5.2* 4.3 4.4 CL 107 106 103 CO2 16* 17* 23 BUN 66* 66* 71* CREATININE 1.74* 1.64* 1.79* GLUCOSE 343* 289* 257* CALCIUM 7.7* 7.8* 8.3* ANIONGAP 13 16* 11 PT/INR: Recent Labs 07/31/23 0508 PROTIME 12.6* INR 1.2* Urine culture: No results found for: "URINECX", "URCULTREFLEX" COVID-19 PCR: No results for input(s): "COVID19" in the last 72 hours. Imaging: === 07/30/23 === CT ABDOMEN PELVIS WO IV CONTRAST - Impression - 1. Study limited as above. Allowing for this, there is a left UPJ calculus with mild to moderate upstream hydronephrosis. 2. Stable 3 mm right lower lobe pulmonary nodule. Recommendations for follow-up as below. Previously noted 1.3 cm pulmonary nodule is not included on the current examination. 3. Additional chronic findings as above. Updated Fleischner Society Guidelines for Management of Small Pulmonary Nodules Detected on CT (2017) SOLITARY NODULE: LOW RISK PATIENT < 6 mm - No follow-up 6 - 8 mm - 6 - 12 month follow-up, then consider 18 - 24 months > 8 mm - PET/CT, biopsy, or 3 month follow-up SOLITARY NODULE: HIGH RISK PATIENT < 6 mm - Optional 6 - 12 months follow-up (suspicious morphology or upper lobe) 6 - 8 mm - 6 - 12 month follow-up, then 18 - 24 months > 8 mm - PET/CT, biopsy, or 3 month follow-up MULTIPLE NODULES: LOW RISK PATIENT (Use most suspicious) All < 6 mm - No follow-up Any > 6 mm - 3 - 6 month follow-up, then 18 - 24 months MULTIPLE NODULES: HIGH RISK PATIENT (Use most suspicious) All < 6 mm - No follow-up Any > 6 mm - 3 - 6 month follow-up, then 18 - 24 months Report Dictated on Electronically Signed By: Catarino Sue MD Electronically Signed Date/Time: 07/31/2023 2:35 AM EDT Please note that portions of this chart were dictated using [employer] voice recognition software. It is possible that typos and/or omissions and/or substitutions of words and/or phrases may exist, which may alter the intended meaning of the dictating provider. Family Communication Number Called: [phone], Name of Designated Family Registered Nurse Maternity: Deidra Vang Jesus Vang Relationship: daughter, spouse Phone Call Outcome: I left a HIPPA compliant message at the number listed above. Family Registered Nurse Maternity Updated on the Following: Images from the original note were not included. OCCUPATIONAL THERAPY [facility] Name/MRN: Salazar Coyle ([id number]) Date: 07/31/2023 Chart review completed, per documentation pt is bedbound and is total A for Adls. Pt is not appropriate for acute therapies. Will complete current orders. Sana Urbina OT Images from the original note were not included. PHYSICAL THERAPY [facility] Name/MRN: Salazar Coyle ([id number]) Date: 07/31/2023 Chart reviewed. Pt bedbound at baseline, does not transfer, inappropriate for PT. Will discontinue orders. Josr Mejia PT ICU Progress Note Name: Salazar Coyle : 1950(72 y.o.) Date: 07/31/23 Team: MICU Attending: Maya Del Real DO Subjective: Hospital Summary: 72-year-old female with history of dementia, A-fib on Eliquis, DMT2, PHOEBE, morbid obesity, chronic Jose secondary to neurogenic bladder, chronic pain, anxiety, and admission 05/2022 with a ESBL E. coli bacteremia with left UPJ calculus s/p stent and extended meropenem who presented with acute encephalopathy, admitted with septic shock secondary to UTI, left hydronephrosis, s/p cystoscopy with ureteral stent placement 07/30. Interval Events: Patient resting comfortably on return from the OR. Sedated on fentanyl, requiring Levophed. Scheduled Meds:acetaminophen, 1,000 mg, IntraVENous, q8h [Held by provider] apixaban, 5 mg, Oral, BID ascorbic acid, 250 mg, Oral, Daily atorvastatin, 20 mg, Oral, Nightly atorvastatin, 20 mg, Oral, Daily baclofen, 5 mg, Oral, TID bisacodyl, 10 mg, Rectal, BID calcium gluconate, 4,000 mg, IntraVENous, Once Diclofenac Sodium, 4 g, Topical, BID donepezil, 10 mg, Oral, Nightly donepezil, 10 mg, Oral, Nightly famotidine (Pepcid) 20 mg in sodium chloride (PF) 0.9 % 10 mL injection, 20 mg, IntraVENous, BID gabapentin, 200 mg, Oral, TID [Held by provider] gabapentin, 300 mg, Oral, TID Insulin Lispro, 3 Units, SubCUTAneous, TID WC ipratropium-albuterol, 3 mL, Nebulization, TID lidocaine, , Topical, Once lisinopril, 10 mg, Oral, Daily meropenem, 2,000 mg, IntraVENous, q8h miconazole, , Topical, BID nystatin, , Topical, BID oxymetazoline, 2 spray, Each Nostril, Once Petrolatum, , Topical, BID Phenylephrine HCl (Pressors), , , polyethylene glycol (PEG) 3350, 17 g, Oral, Daily senna-docusate sodium, 2 tablet, Oral, BID sertraline, 50 mg, Oral, Daily sertraline, 50 mg, Oral, Daily sodium chloride 0.9%, 10 mL, IntraVENous, 2 times per day sodium chloride 0.9%, 5-40 mL, IntraCATHeter, q8h stomahesive in petrolatum, , Topical, q8h Continuous Infusions:fentaNYL, 25-200 mcg/hr heparin, 5-30 Units/kg/hr, Last Rate: Stopped (07/31/23526) insulin regular, 1-50 Units/hr, Last Rate: 6 Units/hr (07/31/2346) norepinephrine, 1-100 mcg/min, Last Rate: 16 mcg/min (07/31/23604) sodium bicarbonate 150 mEq in dextrose 5 % 1,000 mL infusion, 75 mL/hr, Last Rate: 75 mL/hr (07/31/23 0553) Objective: Last Vitals: BP MAP (!) 81/40 (07/31/23540) 52 (07/31/23540) Arterial BP MAP Temp (!) 38.1 C (100.5 F) (07/31/23 0302) Pulse 76 (07/31/23540) Resp 17 (07/31/23540) SpO2 100 % (07/31/23540) Weight (!) 159 kg (350 lb) (07/30/23 1612) BMI Body mass index is 56.52 kg/m . I/O: 07/29 0700 - 07/30 0659 In: 4314.5 [I.V.:1764.5] Out: 210 [Urine:210] Ventilator: Resp Rate (Set): 18 Vt (Set, mL): 370 mL FiO2 (%): 100 % PEEP/CPAP (cm H2O): 8 cm H20 Inspiratory Time (sec): 0.95 sec Oxygen Delivery: O2 Flow Rate (L/min): 4 L/min Invasive Lines / Tubes / Drains: CVC Triple Lumen 07/31/23 Non-tunneled Right Internal jugular (Active) Number of days: 0 Peripheral IV 07/30/23 Distal;Posterior;Right Forearm (Active) Number of days: 0 Peripheral IV 07/30/23 Anterior;Proximal;Right;Upper Arm (Active) Number of days: 0 NG/OG Tube Orogastric Center mouth (Active) Number of days: 0 ETT 7.5 mm (Active) Number of days: 0 Central Line Indication: Vesicant infusions/medications at high risk of causing extravasation Jose Indications: Neurogenic bladder or chronic urinary retention Restraints: Restraints Non-Violent Or Non-Self Destructive Jul 31, 2023 4:41 Am Edt Restraint order already placed. Order is valid for duration of episode. Wounds: Wound/Incision 06/09/22 Coccyx (Active) Date First Assessed/Time First Assessed: 06/09/22 1550 Present on Hospital Admission: Yes Location: Coccyx Wound Description (Comments): red/brown blanchable areas Wound Outcome: Other (Comment) Wound/Incision 06/09/22 Venous Ulcer Pretibial Right (Active) Date First Assessed/Time First Assessed: 06/09/22 1540 Present on Hospital Admission: Yes Primary Wound Type: Venous Ulcer Location: Pretibial Wound Location Orientation: Right Wound Description (Comments): multi scabbed areas Wound/Incision 06/09/22 Venous Ulcer Pretibial Left (Active) Date First Assessed/Time First Assessed: 06/09/22 1540 Primary Wound Type: Venous Ulcer Location: Pretibial Wound Location Orientation: Left Wound Description (Comments): multi scabbed areas on shins Wound/Incision 06/10/22 Traumatic Leg Left;Proximal;Upper;Posterior (Active) Date First Assessed/Time First Assessed: 06/10/22 0832 Primary Wound Type: Traumatic Location: Leg Wound Location Orientation: Left;Proximal;Upper;Posterior Wound/Incision 06/10/22 Amputation site - Toe Anterior;Right (Active) Date First Assessed/Time First Assessed: 06/10/221899 Present on Hospital Admission: Yes Location: Amputation site - Toe Wound Location Orientation: Anterior;Right Wound Description (Comments): amputation of right pinky toe Constitutional: General Appearance []WDWN [x]Obese []Cachectic []Thin []Ill Eyes: Inspection of Pupils/Irises Pupils round and react: [x]Yes []No Sclera: []Icteric [x]Non-Icteric Inspection of Conjunctiva/Lids Conjunctiva: []Injected [x]Non-Injected Lids: [x]Intact []Lesion Present ENT/Mouth: External Inspection of ears/nose [x] Normal [] Scar/Lesion/Mass Inspection of teeth/lips/gums Dentition: []Crow Teeth []Dentures Lips/Gums: []Intact []Lesion Present Mucosa: [][place] []Moist []Dry Neck: External Appearance Overall Appearance: [x]Normal []Lesion/Mass/Crepitus Present Trachea midline: []Yes []No Thyroid []Normal []Enlarged []Tender []Mass []Absent Respiratory: Respiratory effort []Labored []Non-Labored [x] Mechanically-Ventilated Auscultation [x]Clear []Crackles []Wheezes [][place] Cardiovascular: Auscultation Rate: [x]Regular []Irregular []Tachycardia []Bradycardia Rhythm: [x]Regular []Irregular Murmur: []Present []Absent Extremities Peripheral Edema: []Present [x]Absent Varicosities: []Present []Absent Gastrointestinal: Abdomen Palpation: [x]Soft []Firm []Tender [x]Non-Tender []Distended [x]Non-distended Mass: []Present [x]Absent Bowel Sounds: [x]Present []Absent Hernia: []Present []Absent Liver/Spleen: []Hepatosplenomegaly []Organomegaly Absent Musculoskeletal: Inspection of Digits and Nails Cyanosis: []Present [x]Absent Clubbing: []Present []Absent Ischemia: []Present []Absent Infection: []Present []Absent Extremities BLANCA Equally: Except ([]RUE []RLE []LUE []LLE) Strength/Tone: Intact and Normal ([]RUE []RLE []LUE []LLE) Skin: Inspection: Chronic LE discoloration and skin thickening []Normal []Rash []Lesion []Ulcer Palpation [x]Warm []Cool []Dry []Clammy []Nodules []Induration []Skin-tightening Cap-Refill: [x] <3 sec [] >3 seconds (delayed) Neurologic: GCS EYE: 2 - Opens to pain GCS MOTOR: 4 - Withdraws from pain GCS Verbal: Sedated, intubated Total GCS: [] Sensation grossly intact Psych: Mental Status Alert: []Yes [x] No Oriented: []x0 []X1 []X2 []x3 Mood/Affect []Normal []Flat []Agitated []Depressed []Anxious []Calm [x]Sedated []NAD [facility] within last 24 hours- BMP: Recent Labs 07/30/23 1830 07/30/23224707/31/23 0508 NA 135 136 139 K 4.7 5.2* 4.3 CL 112* 107 106 CO2 17* 16* 17* BUN 62* 66* 66* CREATININE 1.43* 1.74* 1.64* CALCIUM 6.3* 7.7* 7.8* MG -- -- 1.9 PHOS -- -- 3.4 LFTs: Recent Labs 07/30/23 1337 07/30/23 1652 07/30/23224707/31/23 0508 AST 62* -- 37 30 ALT 31 -- 56* 25 PROT 6.6 -- 5.9* 5.9* ALBUMIN 3.5 -- 3.0* 3.3* BILITOT 0.8 -- 0.6 0.8 BILIRUBINU -- Negative -- -- ALKPHOS 84 -- 87 71 Glucose: Recent Labs 07/30/23 1337 07/30/23 1830 07/30/23 1924 07/30/23224707/30/23 2346 07/31/23 0003 07/31/23 0034 07/31/23 0135 07/31/23 0201 07/31/23 0259 07/31/23 0358 07/31/23 0508 07/31/23 0535 07/31/23 0645 GLUCOSE 326* 286* -- 343* -- -- -- -- -- -- -- 289* -- -- POCGLU -- -- < > -- < > 421* 413* 416* 393* 343* 323* -- 317* 299* BHYDRXBUT -- 1.71 -- -- -- -- -- -- -- -- -- -- -- -- < > = values in this interval not displayed. Procal: Recent Labs 07/30/23 1830 PROCAL 28.53* CBC: Recent Labs 07/30/23 1337 07/30/23 2248 07/31/23 0508 WBC 13.9* 20.1* 16.2* HGB 11.3* 10.7* 9.5* HCT 35.2 33.0* 29.4* PLT 183 136* 100* MCV 106.3* 107.1* 105.4* RDW 14.4 14.7 14.6 ABGs: Recent Labs 07/31/23 0001 PHART 7.317* [id number] 37.4 PO2ART 138.0* [id number] 19.1* SO2ART 98.9 Lactic Acid: Recent Labs 07/30/23 1830 07/30/23 2248 07/31/23 0227 LACTATE 4.0* 6.7* 6.8* INR: Recent Labs 07/31/23 0508 INR 1.2* Cardiac Injury Profile: Recent Labs 07/30/23 2248 07/31/23 0157 07/31/23 0508 TROPONINI 0.772* 0.867* 0.881* Labs in Last 3 months: Lab Results Component Value Date INR 1.2 (H) 07/31/2023 Microbiology- Urine Cx: Lab Results Component Value Date URINECX 01/08/2023 Multiple species present; probable contamination; repeat suggested Blood Cx: Lab Results Component Value Date BLOODCX Blood culture incubation started 07/30/2023 BLOODCX Blood culture incubation started 07/30/2023 Sputum Cx: No results found for: RESPCULT Gram Stain: Lab Results Component Value Date LABGRAM (A) 06/10/2022 Many Polymorphonuclear leukocytes per low power field LABGRAM Moderate Gram positive cocci in clusters (A) 06/10/2022 LABGRAM Few Gram positive bacilli (A) 06/10/2022 LABGRAM Rare Gram negative bacilli (A) 06/10/2022 PNA PCR: No results found for: HUMANMETAPNE COVID19: No results found for: COVID19 Legionella Ag: No results found for: LEGIONELLAPN Strep Ag: No results for input(s): "STREPPNEUMO" in the last 72 hours. Imaging- Assessment and Plan: Principal Problem: Severe sepsis (HCC) Assessment: UTI, right ureteral calculus s/p ureteral stent placement 07/30, neurogenic bladder with chronic Jose, WHITLEY Septic shock secondary to above, NSTEMI, A-fib on Eliquis Acute encephalopathy, dementia Intubated, PHOEBE Metabolic acidosis, DMT2 Anemia, thrombocytopenia Obesity Plan: Sedated with fentanyl Intubated for airway protection. Current vent settings 400 16 50 8. ABG reviewed. Wean FiO2. S/p 4.3L yesterday, noted with good urine output this morning. Returned from OR on high-dose Levophed, but titrating down. Prior TTE with mild pulmonary hypertension and HFpEF. Repeat pending. Troponins slowly rising, NSTEMI likely demand in setting of shock, EKG with LBBB similar to prior, will monitor. Repeat lactate pending Febrile overnight, leukocytosis and very elevated procal. Blood and urine cultures pending. Urine culture from 05/2022 with ESBL E. Coli. Continue with meropenem and vanc. ID consulted CT A/P with 8mm L UPJ calculus with moderate hydro, s/p stent placement this morning. WHITLEY improving, jose replaced, on bicarb ggt, monitor UO Anemia around baseline, may be component of dilution. No active signs of bleeding, holding Eliquis and on heparin ggt for afib, will trend Remains on insulin ggt for hyperglycemia Bowel regimen GI Prophylaxis: Pepcid IV DVT Prophylaxis: Heparin subcutaneous and Full anticoagulation Disposition: Remain in ICU Status Critical Care Time: 50 min Total critical care time caring for this patient with life threatening, unstable organ failure, including direct patient contact, management of life support systems, review of data including imaging and labs, discussions with other team members and physicians, excluding procedures. Pt intubated with a S4 glide scope blade placed a #7.5@24 positive [id number], visual of vocal cords and bilateral breath sounds obtained. xray done and Ettube pulled back 1cm is now secured 23@lip with current vent settings of AC VC+,16,400,100,+8 documented in this encounter [facility] 08-09-2023 Hospital course Narrative Images from the original note were not included. Hospitalist Discharge Summary Salazar Coyle : 1950 Admit date: 07/30/2023 Discharge date: 08/09/2023 Admitting Physician: Maya Del Real DO Primary Care Physician: Paige Rivera DO Visit Status: admission Code Status: Full Code Discharge Diagnoses: Septic Shock 2/2 chronic jose UTI ESBL ecoli bacteremia Right ureteral calculus s/p ureteral stent placement on 07/31/23 Choledocholithiasis Acute on chronic hypoxic respiratory failure Acute volume overload WHITLEY on CKD stage 3 PHOEBE DM type 2 NSTEMI Macrocytic anemia Thrombocytopenia Hx of Afib HX of neurogenic bladder with chronic jose Morbid obesity Dementia/alzheimers Hx of HTN Chronic back and leg pain Hospital Course: patient admitted to ICU with septic shock found to have ESBL bacteremia in setting of UTI and chronic jose. Required intubation for respiratory support, extubated on 08/05/23. Sepsis resolved, patient on broad spectrum IV abx through 08/15 with PICC placed on 08/06/23. Urology following for right ureteral calculus s/p stent placement on 07/30, follow up with urology outpatient in 08/21. Patient transferred out of ICU on 08/07/23. Patient found to have choledocholithiasis on imaging however with stable LFT's and largely asymptomatic, surgery followed, no intervention indicated. GI evaluated, recommended possible ERCP should pain or symptoms arise. Patient with WHITLEY and volume overload, followed by nephrology, renal function stabilized. Endocrinology following for DM management. Patient cleared by consultants for discharge. Patient discharged back to SNF in improved and stable condition on 08/09/23. Consults: IP CONSULT TO DIETITIAN IP CONSULT TO INFECTIOUS DISEASES IP CONSULT TO UROLOGY PHARMACY TO DOSE VANCO IP WOUND CARE NURSE CONSULT TO EVAL IP CONSULT TO DIETITIAN IP CONSULT TO PALLIATIVE CARE IP CONSULT TO ENDOCRINOLOGY IP CONSULT TO NEPHROLOGY IP CONSULT TO GI IP CONSULT TO GENERAL SURGERY Discharge Instructions: Diet: Adult diet Regular; No Added Salt (3-4 gm); 4 carb choices (60 gm/meal) Activity: as tolerated Recommended Outpatient Tests: Disposition: Patient discharged in stable condition to [facility] LABS: CBC: Recent Labs 08/07/2331208/08/2332108/09/23 0331 WBC 7.0 6.7 6.3 RBC 2.55* 2.68* 2.36* HGB 8.6* 8.9* 7.9* HCT 27.9* 29.2* 25.6* MCV 109.4* 109.0* 108.5* RDW 14.6 14.9 15.0 PLT 205 240 201 BMP: Recent Labs 08/07/2331208/08/2332108/09/23 033 NA 144 144 140 K 3.7 3.8 3.9 CL 101 103 99 CO2 33* 35* 33* BUN 70* 68* 69* CREATININE 1.11* 1.16* 1.17* GLUCOSE 127* 161* 166* CALCIUM 9.2 9.2 8.5 ANIONGAP 10 6 7 LIVER PROFILE: Recent Labs 08/07/23312 AST 22 ALT 13 BILITOT 0.7 ALKPHOS 45 PROT 6.1* PT/INR: No results for input(s): "PROTIME", "INR" in the last 72 hours. CARDIAC ENZYMES: No results for input(s): "TROPONINI" in the last 72 hours. Procalcitonin: No results found for: PROCAL COVID-19 PCR: No results for input(s): "COVID19" in the last 72 hours. Vitals: BP (!) 127/110 (BP Location: Left arm, Patient Position: Lying) Pulse 75 Temp 36.7 C (98.1 F) (Axillary) Resp 12 Ht 5' 5" (1.651 m) Wt (!) 350 lb (159 kg) SpO2 99% BMI 58.24 kg/m Pulse Ox: SpO2 Av.1 % Min: 92 % Max: 100 % Supplemental O2: O2 Flow Rate (L/min): 2 L/min General appearance: No apparent distress, appears stated age and cooperative with exam, obese female in NAD Respiratory: CTA BL, diminished. Cardiovascular: Regular rate and rhythm with no murmur Abdomen: Soft, non-tender, non-distended Musculoskeletal: No clubbing, cyanosis or edema bilaterally. Full range of motion without deformity. Skin: chronic venous stasis changes in BL LE, 1+ BL LE edema present. Distal pulses present in BL LE. Neurologic: grossly non-focal. Discharge Medications: Medication List START taking these medications bumetanide 1 MG tablet Commonly known as: Bumex Take 1 tablet (1 mg) by mouth in the morning and 1 tablet (1 mg) in the evening. cyanocobalamin 1000 MCG tablet Commonly known as: Vitamin B-12 Take 1 tablet (1,000 mcg) by mouth daily. Start taking on: August 10, 2023 folic acid 1 MG tablet Commonly known as: Folvite Take 1 tablet (1 mg) by mouth daily. Start taking on: August 10, 2023 oxyCODONE 5 MG immediate release tablet Commonly known as: Roxicodone Take 1 tablet (5 mg) by mouth in the morning and 1 tablet (5 mg) at noon and 1 tablet (5 mg) in the evening and 1 tablet (5 mg) before bedtime. Do all this for 5 days. CHANGE how you take these medications gabapentin 100 MG capsule Commonly known as: Neurontin Take 3 capsules (300 mg) by mouth 3 times daily. What changed: how much to take insulin glargine 100 UNIT/ML injection Commonly known as: Lantus Inject 30 Units under the skin Nightly. What changed: how much to take Insulin Lispro 100 UNIT/ML solution injection Commonly known as: Humalog Inject 5 Units under the skin in the morning and 5 Units at noon and 5 Units in the evening. Inject with meals. What changed: how much to take CONTINUE taking these medications acetaminophen 325 MG tablet Commonly known as: Tylenol apixaban 5 MG tablet Commonly known as: Eliquis ascorbic acid 250 MG tablet Commonly known as: Vitamin C atorvastatin 20 MG tablet Commonly known as: Lipitor baclofen 5 MG tablet Commonly known as: Lioresal Diclofenac Sodium 1 % gel Commonly known as: Voltaren Apply 4 g topically 2 times daily. donepezil 10 MG tablet Commonly known as: Aricept MEROPENEM IV nystatin [id number] UNIT/GM powder Commonly known as: Mycostatin Oyster Shell Calcium/D 500-5 MG-MCG tablet senna-docusate 8.6-50 MG tablet Commonly known as: [place]-Colace sertraline 50 MG tablet Commonly known as: Zoloft STOP taking these medications furosemide 40 MG tablet Commonly known as: Lasix lisinopril 10 MG tablet Where to Get Your Medications You can get these medications from any pharmacy Bring a paper prescription for each of these medications bumetanide 1 MG tablet cyanocobalamin 1000 MCG tablet folic acid 1 MG tablet gabapentin 100 MG capsule insulin glargine 100 UNIT/ML injection Insulin Lispro 100 UNIT/ML solution injection oxyCODONE 5 MG immediate release tablet Recommended Follow-up: PCP, urology outpatient in 1-2 weeks. @[email or web address]@ Complexity of Follow up: [] Moderate Complexity: follow up within 7-14 calendar days (72331) [x] Severe Complexity: follow up within 7 calendar days (71263) Follow up Testing, Pending results or Referrals at Transitional Care Visit: [x] yes [] no Instructions to MA: Please call patient on day after discharge (must document patient contacted within 2 business days of discharge). Follow up questions for MA: 1. Did you get medications filled and taking them as instructed from discharge? 2. Are you following your discharge instructions from your hospital stay? 3. Please confirm patient is scheduled for a follow up appointment within the above time frame. Signed: Paige Rivera DO Division of Hospitalist Medicine Inpatient Medical Services/[facility] [place] 08/09/2023, 10:33 AM Total time Spent on Discharge: 32 minutes documented in this encounter [facility] 08-09-2023 Hospital Discharge instructions Wai Spain RN - 08/09/2023 10:27 AM EDT Images from the original note were not included. 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 No Past Surgical History: History reviewed. No pertinent surgical history. Immunization History: Immunization History Administered Date(s) Administered Covid-19, Moderna Bivalent Booster, (Age 6y-11y) 05/10/2022 Influenza, High Dose Seasonal, Preservative Free 01/07/2018 Influenza, Unspecified 01/31/2017 Pfizer SARS-CoV-2 Vaccination 04/20/2020, 05/11/2020 Pneumococcal Polysaccharide PPSV23 01/31/2017 Active Problems: Medical Problems Problem List * (Principal) Severe sepsis (HCC) Edema Septic shock (HCC) Inflammatory reaction due to indwelling ureteral stent, initial encounter (HCC) Ureteropelvic junction calculus Overview Signed 08/07/2022 6:48 PM by Deacon Tariq MD Laser lithotripsy 07/2022 WHITLEY (acute kidney injury) (HCC) Chronic venous stasis Radicular pain in right arm Hypertension Foot ulcer (HCC) Hyperlipemia Bladder spasm Type 2 diabetes mellitus with hyperglycemia (HCC) Overview Signed 01/14/2022 2:38 PM by Interface, Incoming Problems- [facility] Conversion Important Lab History: HBA1C: 09/2015: >13%, 10/2015: 10.4% Thyroid Function Testing: Renal Function Testin12/2015: Creatinine 0.81 Urine for Microalbumin: Lipid Profile: Liver Profile: Dilated Eye Exam: 09/2015: Hospitalized, Doctor Izaguirre consulted, was on orals at that time, HbA1C was over 13%, insulin was started. 12/2015: First time office visit for Type 2 Diabetes Mellitus management. Known to Doctor Izaguirre through consultation at [facility]. Long acting insulin: Insulin used for this is called: Levemir Bedtime dose 85 units Rapid acting /mealtime insulin: Insulin used for this is called: Novolog Breakfast dose: 40 units Lunchtime dose 40 units Supper dose 40 units States since hospital discharge readings have been significantly above goal. Describes going to Primary Care Provider office and they recently increased insulin to the above doses. I spent a good deal of time with insulin education, after patient provided me a return demonstration, she HAS NOT been injecting insulin at all this whole time. This is likely why she has required less insulin when hospitalized since nurses were administering the insulin. There are two protective caps on the needle, she was only removing the outer one, therefore; has not been actually injecting the insulin. She states she didn't know why it felt like the insulin was running down her skin. States she was never taught the proper way to administer insulin. Denies frequent periods of hypoglycemia. I reviewed its signs and symptoms. Wounds, multiple Degenerative disc disease, cervical Chronic pain Osteoarthrosis PAF (paroxysmal atrial fibrillation) ([facility]) Cognitive decline Morbid obesity with BMI of 60.0-69.9, adult ([facility]) 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 ([facility]) Recurrent UTI Cerebrovascular accident ([facility]) Hyperglycemia Chronic indwelling Jose catheter Overview Signed 01/14/2022 2:39 PM by Interface, Incoming Problems- [facility] Conversion Notes refer to chronic jose going back to 2019 CKD (chronic kidney disease) Asymptomatic bacteriuria Anemia Isolation/Infection: Contact ESBL Nurse Assessment: Last Vital Signs: BP (!) 127/110 (BP Location: Left arm, Patient Position: Lying) Pulse 75 Temp 36.7 C (98.1 F) (Axillary) Resp 12 Ht 5' 5" (1.651 m) Wt (!) 350 lb (159 kg) SpO2 99% BMI 58.24 kg/m Last documented pain score (0-10 scale): Last Weight: Wt Readings from Last 1 Encounters: 07/31/23 (!) 350 lb (159 kg) Mental Status: JENN Patient Mental Status: alert and logical IV Access: JENN IV Access: PICC - site: upper arm right, condition patent and no redness, insertion date: Nursing Mobility/ADLs: Walking Total assistance Transfer Total assistance Bathing Total assistance Dressing Total assistance Toileting Total assistance Feeding Total assistance Store Assistant Total assistance Med Delivery yes Wound Care Documentation and Therapy: Wound/Incision 06/09/22 Traumatic Coccyx (Active) Site Assessment Red 08/09/23 0800 Drainage Amount None 08/09/23 0800 Treatments Pharmaceutical agent 08/09/23 0800 Primary Dressing Other (Comment) 08/08/23 1938 Topical Other 08/05/23 1109 Dressing Status Other (Comment) 08/08/23 1938 Number of days: 425 Wound/Incision 06/09/22 Venous Ulcer Pretibial Right (Active) Site Assessment Red 08/09/23 0800 [place]-Wound Assessment Red 08/09/23 0800 Drainage Description Serous 08/09/23 0800 Odor None 08/05/23 0745 Drainage Amount None 08/08/23 1938 Treatments Pharmaceutical agent 08/09/23 0800 Primary Dressing Open to air 08/09/23 0800 Topical Other 08/08/23 1542 Dressing Status Reinforced 08/09/23 0800 Number of days: 425 Wound/Incision 06/09/22 Venous Ulcer Pretibial Left (Active) Site Assessment Red 08/09/23 0800 Drainage Description Serous 08/09/23 0800 Odor None 08/08/23 0730 Drainage Amount None 08/08/23 0730 Treatments Pharmaceutical agent 08/09/23 0800 Primary Dressing Open to air 08/09/23 0800 Topical Other 08/08/23 1542 Dressing Status Other (Comment) 07/31/23 0308 Number of days: 425 Wound/Incision 06/10/22 Amputation site - Toe Anterior;Right (Active) Number of days: 424 Wound/Incision 08/01/23 Pressure Injury Leg Anterior;Left;Upper;Medial (Active) Site Assessment Red 08/09/23 0800 [place]-Wound Assessment Dry 08/05/23 0745 Wound Length (cm) 4 cm 08/01/23 0000 Wound Width (cm) 4 cm 08/01/23 0000 Wound Surface Area (cm^2) 16 cm^2 08/01/23 0000 Drainage Description Serous 08/09/23 0800 Odor None 08/07/23 1503 Drainage Amount None 08/08/23 1542 Treatments Site care 08/09/23 0800 Primary Dressing Xeroform 08/09/23 0800 Dressing Status Reinforced 08/09/23 0800 Number of days: 8 Wound/Incision 08/06/23 Skin Tear Hand Right;Dorsal (Active) Site Assessment Red 08/09/23 0800 [place]-Wound Assessment [place] 08/06/23 0735 Wound Length (cm) 1 cm 08/06/23 0735 Wound Width (cm) 0.5 cm 08/06/23 0735 Wound Surface Area (cm^2) 0.5 cm^2 08/06/23 0735 Drainage Description Serosanguineous 08/09/23 0800 Odor None 08/09/23 0800 Drainage Amount None 08/09/23 0800 Treatments Cleansed 08/09/23 0800 Primary Dressing Open to air 08/09/23 08 Dressing Status Clean, dry & intact 08/09/23 08 Number of days: 3 Wound/Incision 08/07/23 Traumatic Neck Anterior;Right (Active) Wound Image 08/07/23 1638 Site Assessment Red 08/09/23 0800 Wound Length (cm) 3 cm 08/07/23 1638 Wound Width (cm) 0.5 cm 08/07/23 1638 Wound Surface Area (cm^2) 1.5 cm^2 08/07/23 1638 Treatments Site care 08/09/23 0800 Primary Dressing Adaptic 08/09/23 08 Dressing Status Reinforced 08/09/23 0800 Number of days: 2 Wound/Incision 08/08/23 Traumatic Gluteal fold (Active) Site Assessment Red 08/09/23 0800 Wound Length (cm) 4 cm 08/08/23 0730 Drainage Amount None 08/08/23 0730 Primary Dressing Xeroform 08/09/23 0800 Dressing Status Reinforced 08/09/23 08 Number of days: 1 Elimination: Continence: Bowel: no Bladder: yes Urinary Catheter: Insertion date: 07-31-2023 Indication for use of catheter: Urology/urologist seeing this patient or inserted indwelling catheter Colostomy/Ileostomy/Ileal Conduit: None Date of Last BM: 08-09-2023 Intake/Output Summary (Last 24 hours) at 08/09/2023 1027 Last data filed at 08/09/2023 0804 Gross per 24 hour Intake 750 ml Output 1190 ml Net -440 ml I/O last 3 completed shifts: In: 1636 (10.3 mL/kg) [P.O.:1460; I.V.:176 (1.1 mL/kg)] Out: 2034 (12.8 mL/kg) [Urine:2034 (0.4 mL/kg/hr)] Weight: 158.8 kg Safety Concerns: history of falls (last 30 days), at risk for falls, and aspiration risk Impairments/Disabilities: none Nutrition Therapy: Current Nutrition Therapy: Oral diet: carb control 3 carbs/meal (1500kcals/day) Routes of Feeding: oral Liquids: thin liquids Daily Fluid Restriction: yes - amount: none Last Modified Barium Swallow with Video (Video Swallowing Test): done on Treatments at the Time of Hospital Discharge: Respiratory Treatments: oxygen Oxygen Therapy: is not on home oxygen therapy. Ventilator: CPAP: only when sleeping Rehab Therapies: physical therapy, occupational therapy, speech therapy, health and social care teacher, and nursing Weight Bearing Status/Restrictions: no restriction Other Medical Equipment (for information only, NOT a DME order):patient lift, sliding board. Other Treatments: respiratory and nurses. Patient's personal belongings (please select all that are sent with patient): hearing aides bilateral and dentures upper and lower RN SIGNATURE: MANAGEMENT/SOCIAL WORK SECTION Inpatient Status Date: 07/30/2023 Readmission Risk Assessment Score: @[email or web address]@ Discharging to Facility/ Agency Name: [facility] Address: [address] [place] [address] [place] [address] Fax: Dialysis Facility (if applicable) Name: Address: Dialysis Schedule: Phone: Fax: Call Center Coordinator/Occupational Therapist Assistant signature: ICIAN SECTION Prognosis: excellent Condition at Discharge: stable Rehab Potential (if transferring to Rehab): excellent Recommended Labs or Other Treatments After Discharge: none Physician Certification: I certify the above information and transfer of Salazar Coyle is necessary for the continuing treatment of the diagnosis listed and that she requires correction facility for less than 30 days. Update Admission H&P: No change in H&P PHYSICIAN SIGNATURE: The following attachments cannot be sent through Care Everywhere.Gallstones Discharge Instructions (North Korean)documented in this encounter [facility] 08-06-2023 Nurse Note Vital signs monitored throughout the procedure. Patient tolerated the procedure well. Patient transferred back to ICU following the procedure. Patient arrived from ICU for PICC line placement.Consent was obtained from the patient's family prior to patient's arrival to the interventional radiology department. Patient's lab values and allergies were reviewed. Patient was placed supine on exam table, prepped and draped in sterile fashion. Telemetry monitors were placed. documented in this encounter [facility] 08-04-2023 Consult note Associated Order (s): PHARMACY TO DOSE VANCO Vancomycin therapy has been discontinued by Dr. Petersen on 08/03. Thank you for the consult. Pharmacy signing off for vancomycin dosing. Stephanie Monique RPh, Date: 08/04/23 Time: 9:36 AM Associated Order(s): Inpatient consult to Gastroenterology--[facility] Images from the original note were not included. GI CONSULTATION Patient: Salazar Coyle : 1950 Primary Care Physician: Paige Rivera DO Inpatient consult to Gastroenterology--[facility] Consult performed by: Fatimah Guzman MD Consult ordered by: Maya Del Real DO CHIEF COMPLAINT: cbd stone HISTORY OF PRESENT ILLNESS: 72-year-old woman admitted with an obstructing urethral stone and sepsis. Intubated due to respiratory failure hypotension. Imaging suggestive of generous common bile duct with possible stone. Liver tests are normal. Seen by general surgery for cholelithiasis and choledocholithiasis, no acute indication for operative management. PAST MEDICAL HISTORY: Past Medical History: Diagnosis Date A-fib (CMS/HCC) (HCC) Anemia Diabetes (HCC) Lymphedema Obesity PAST SURGICAL HISTORY: History reviewed. No pertinent surgical history. FAMILY HISTORY: No family history on file. SOCIAL HISTORY: TOBACCO: reports that she has never smoked. She has never used smokeless tobacco. ETOH: reports no history of alcohol use. DRUGS: reports no history of drug use. Medications: Prior to Admission medications Medication Sig Start Date End Date Taking? Authorizing Provider acetaminophen (Tylenol) 325 MG tablet Take 325 mg by mouth 3 times daily. Historical Provider, apixaban (Eliquis) 5 MG tablet Take 5 mg by mouth 2 times daily. Historical Provider, ascorbic acid (Vitamin C) 250 MG tablet Take 250 mg by mouth daily. Historical Provider, atorvastatin (Lipitor) 20 MG tablet Take 20 mg by mouth daily. Historical Provider, baclofen (Lioresal) 5 MG tablet Take 1 tablet by mouth 3 times daily. 04/14/21 Historical Provider, Calcium Carbonate-Vitamin D (Oyster Shell Calcium/D) 500-5 MG-MCG tablet Take 1 tablet by mouth daily. Historical Provider, Diclofenac Sodium (Voltaren) 1 % gel Apply 4 g topically 2 times daily. 01/11/23 Paige Rivera DO donepezil (Aricept) 10 MG tablet Take 10 mg by mouth Nightly. Historical Provider, furosemide (Lasix) 40 MG tablet Take 40 mg by mouth in the morning and 40 mg in the evening. 07/11/22 Historical Provider, gabapentin (Neurontin) 100 MG capsule Take 2 capsules (200 mg) by mouth 3 times daily. 01/11/23 04/11/23 Paige Rivera DO insulin glargine (Lantus) 100 UNIT/ML injection Inject 10 Units under the skin Nightly. 06/16/22 06/16/23 Elise Park MD Insulin Lispro (Humalog) 100 UNIT/ML solution injection Inject 3 Units under the skin in the morning and 3 Units at noon and 3 Units in the evening. Inject with meals. 08/07/22 08/07/23 Juan Becker DO lisinopril 10 MG tablet Take 10 mg by mouth daily. Historical Provider, nystatin (Mycostatin) [id number] UNIT/GM powder 03/22/22 Historical Provider, senna-docusate (Helena-Colace) 8.6-50 MG tablet Take 100 tablets by mouth Every 24 hours. 04/06/21 Historical Provider, sertraline (Zoloft) 50 MG tablet Take 50 mg by mouth daily. 08/18/21 Historical Provider, @MEDCMED@ ALLERGIES: Allergies Allergen Reactions Ertapenem Patient tolerated July 2022 REVIEW OF SYSTEMS: No fever, chills, or sweats. Normal appetite and weight. No COFFMAN, visual disturbance, eye pain, jaundice, sore throat or mouth ulcers. No skin rash or itching. No CP, SOB, SEGUNDO, cough or wheeze. No urinary frequency, urgency, hematuria, or dysuria. No myalgia, arthralgia, or joint swelling. No weakness, numbness, or confusion. GI per HPI. No polyuria, polydipsia, heat or cold intolerance. PHYSICAL EXAM: VS: BP 127/62 Pulse 91 Temp 36.8 C (98.3 F) (Oral) Resp (!) 11 Ht 1.651 m (5' 5") Wt (!) 159 kg (350 lb) SpO2 96% BMI 58.24 kg/m Body mass index is 58.24 kg/m . GENERAL: Pleasant and NAD. HEENT: NCAT, PERRLA, EOMI, Scleral anicteric. Oropharhynx clear with no erythema or exudate. Neck supple, no cervical LAD or thyromegaly. CV: RRR, NL S1/S2, no murmurs. Distal pulses palpable and equal b/l. LUNGS: CTA b/l. Normal percussion and palpation. No W/R/R. Abdomen: + BS, soft, non-tender and non-distended. No hepatosplenomegaly. No mass felt. No rebound or guarding. No hernia. Extremities: No C/C/E. No muscle atrophy. Skin: No skin lesion or breakdown. Lymph: No cervical or supraclavicular LAD. Musculoskeletal: Strength 5/5 in all exts. No joint tenderness or effusions in LEs. Neurologic: A&O x 3, CN II-XII grossly intact. No asterixis. Non-focal. Psych: Normal affect and speech. LABS AND IMAGING: Recent blood work and relevant radiologic and endoscopic studies were reviewed and discussed with the patient. Old records have not been requested CBC: Recent Labs 08/01/23 0608/02/23 04208/03/23 0348 WBC 19.7* 8.2 5.4 HGB 8.8* 8.7* 8.2* HCT 26.6* 26.4* 25.7* PLT 95* 74* 72* HEPATIC: Recent Labs 08/01/23 19308/03/23 0348 AST 23 18 ALT 17 15 BILITOT 0.6 0.5 ALKPHOS 73 59 LIPASE/AMYLASE: No results for input(s): "AMYLASE", "LIPASE" in the last 72 hours. LACTATE: No lab exists for component: "LACTA" BNP: No results for input(s): "BNP" in the last 72 hours. INR: Recent Labs 08/01/23 0608/02/23 042 INR 1.1 1.1 XR chest 1 view Result Date: 07/31/2023 [facility] : 1950 [id number] Exam Date/Time: 07/31/2023 04:56 Procedure: XR CHEST 1 VIEW Ordering Provider: DEL REAL CHELSEA Reason For Exam: verify ETT placement EXAMINATION: XR chest AP. EXAM DATE & TIME: 07/31/2023 4:56 AM EDT INDICATION: verify ETT placement ADDITIONAL INFORMATION: 72-year-old female presents for follow-up after intubation COMPARISON: Chest x-ray dated 07/31/2023 TECHNIQUE: Frontal view of the chest was obtained. FINDINGS: Lines/support devices: An endotracheal tube is present with its distal tip approximately 1.9 cm above the candy. Unchanged right internal jugular approach central venous catheter, terminating in the region of the cavoatrial junction. An NG/OG tube is present with its distal tip coursing subdiaphragmatically and beyond the [id number]. Cardiac leads project over the chest, somewhat limiting evaluation. Cardiomediastinal silhouette: The heart is slightly enlarged. Lungs/pleura: A small left pleural effusion is seen. Right pleural spaces are clear. No evidence of pneumothorax. Osseous structures: Degenerative changes of the spine and shoulders are seen. No acute osseous abnormality is demonstrated. Other findings: None. 1. Small left pleural effusion. Underlying consolidation is not excluded. 2. Lines and support devices as above. Report Dictated on Electronically Signed By: Catarino Sue MD Electronically Signed Date/Time: 07/31/2023 5:[address] abdomen pelvis wo IV contrast Result Date: 07/31/2023 Patient Name: SALAZAR COYLE : 1950 Exam Date/Time: 07/31/2023 00:27 Procedure: CT ABDOMEN PELVIS WO IV CONTRAST Ordering Provider: CALDERÓN SHANNON Reason For Exam: UTI, recurrent/complicated (Female) EXAMINATION: CT of the abdomen and pelvis without contrast. EXAM DATE & TIME: 07/31/2023 12:27 AM EDT INDICATION: UTI, recurrent/complicated (Female) ADDITIONAL INFORMATION: 72-year-old female with a provided history of UTI presents for evaluation COMPARISON: CT abdomen pelvis dated 06/10/2022 LIMITATIONS: Evaluation of the vasculature as well as the solid and hollow viscera is limited due to the lack of intravenous and oral contrast. Additional limitations are present secondary to portions of the patient outside the [id number] and associated beam hardening artifact. TECHNIQUE: Contiguous multiplanar 3 mm images were obtained from the levels of the lung bases through the pelvis without contrast. Images were reformatted in coronal and sagittal projections using the raw CT data and were interpreted in conjunction with the axial images to render the findings listed below. Dose reduction was employed with automated exposure control. FINDINGS: Included images of the lower thorax: There is bibasilar scarring/atelectasis. No focal lung consolidation or pleural effusion. Stable 3 mm right lower lobe pulmonary nodule (series 4, image 7). Previously identified 1.3 cm nodule is not included on the current examination. Hepatobiliary: Unremarkable liver without biliary dilation evident. Cholelithiasis is seen. Spleen: Unremarkable. Pancreas: There is fatty atrophy of the pancreas. Adrenal glands: Unremarkable. Kidneys, ureters and bladder: There is an 8 mm left UPJ calculus with mild to moderate upstream hydronephrosis (HU = 327). Additional coarse, nonobstructing left renal calculi are noted. No evidence of right-sided hydronephrosis or nephrolithiasis. A Jose catheter is present within the urinary bladder, decompressing it and limiting evaluation. Abdominal and pelvic vasculature: Atherosclerotic vascular calcifications are present in the abdominal aorta and its proximal major branches. Gastrointestinal: No evidence of obstruction. No pericecal inflammation to suggest acute appendicitis. Peritoneum, retroperitoneum and mesentery: No free fluid or free air. Inflammatory changes surround the left kidney. Lymph nodes: No abdominal or pelvic lymphadenopathy is evident. Solid pelvic viscera: The uterus appears surgically absent. Visualized musculoskeletal structures: No acute fracture or destructive osseous lesion is identified. Multilevel spondylosis is present. The bones are diffusely osteopenic. 1. Study limited as above. Allowing for this, there is a left UPJ calculus with mild to moderate upstream hydronephrosis. 2. Stable 3 mm right lower lobe pulmonary nodule. Recommendations for follow-up as below. Previously noted 1.3 cm pulmonary nodule is not included on the current examination. 3. Additional chronic findings as above. Updated Fleischner Society Guidelines for Management of Small Pulmonary Nodules Detected on CT (2017) SOLITARY NODULE: LOW RISK PATIENT < 6 mm - No follow-up 6 - 8 mm - 6 - 12 month follow-up, then consider 18 - 24 months > 8 mm - PET/CT, biopsy, or 3 month follow-up SOLITARY NODULE: HIGH RISK PATIENT < 6 mm - Optional 6 - 12 months follow-up (suspicious morphology or upper lobe) 6 - 8 mm - 6 - 12 month follow-up, then 18 - 24 months > 8 mm - PET/CT, biopsy, or 3 month follow-up MULTIPLE NODULES: LOW RISK PATIENT (Use most suspicious) All < 6 mm - No follow-up Any > 6 mm - 3 - 6 month follow-up, then 18 - 24 months MULTIPLE NODULES: HIGH RISK PATIENT (Use most suspicious) All < 6 mm - No follow-up Any > 6 mm - 3 - 6 month follow-up, then 18 - 24 months Report Dictated on Electronically Signed By: Catarino Sue MD Electronically Signed Date/Time: 07/31/2023 2:35 AM EDT POCT glucose meter Result Date: 07/31/2023 Performed by: Bentley Mora, [address] [place] [id number] CLIA ID: [id number] ECG 12 lead Sinus or ectopic atrial rhythm Left bundle branch block Consider anterolateral infarct Compared to ECG 03/13/2021 22:47:47 Ectopic atrial rhythm now present Left bundle-branch block now present Sinus rhythm no longer present Intraventricular conduction delay no longer present T-wave abnormality no longer present Myocardial infarct finding still present Electronically Signed On 07-31-2023 02:00:48 EDT by Paige Flores CT head wo IV contrast Result Date: 07/30/2023 Patient Name: SALAZAR COYLE : 1950 Exam Date/Time: 07/30/2023 14:19 Procedure: CT HEAD WO IV CONTRAST Ordering Provider: LEMON JAY Reason For Exam: Mental status change, unknown cause Indication: Mental status change Comparison date: 06/09/2022 FINDINGS: Dose reduction was employed with automated exposure control.3 mm unenhanced imaging of the brain performed. Images viewed in multiple orthogonal planes. Acute findings: No convincing acute ischemia or infarct, mass effect or midline shift, or hemorrhage. Bony structures:Unremarkable as seen. Orbits within normal limits, limited lack of contrast. Review of the paranasal sinuses shows stable right maxillary fluid-filled partially calcified structure etiology uncertain.. IMPRESSION: Cbd stone - non- obstructing, nl lft. Possibly passeed stone, crotch piece baster ball-valve RECOMMENDATIONS: Trend lft Ercp vs repeat mri prior to d/c Associated Order(s): IP CONSULT TO GENERAL SURGERY Images from the original note were not included. [facility] - [facility] Physicians Surgery Patient Name: Salazar Coyle Date: 08/03/2023 Patient seen and examined by myself and I agree with LEONIDAS note below Patient intubated Abdomen soft nontender nondistended Labs and imaging reviewed Assessment /Plan: Urosepsis Incidental finding biliary ductal dilation and possible choledocholithiasis Asymptomatic Recommend continue with current management and will defer decision for ERCP to GI Surgery will continue to follow for now Patient counseled on risks,benefits, and alternatives of treatement plan at length. Patient states an understanding and willingness to proceed with plan. I personally saw and evaluated the patient. I reviewed and agree with the LEONIDAS's documentation. I provided a substantive portion of the care of this patient. I personally performed the (MDM) for this encounter. I discussed the patient's condition and treatment options with them. I have also reviewed and agree with the past medical, family and social history and care plan unless otherwise noted. All of the patient's questions were answered. This case represents moderate level care including chart review, care coordination and face to face encounter was spent discussing/counseling the patient regarding the care plan for this patient. The patient was seen and examined independently and relevant data reviewed by myself. A full chart review was performed. Adis Dukes MD [facility] General Surgery 5:35 PM 08/03/2023 Department of General Surgery Consult PATIENT NAME: Salazar Coyle DATE OF : 1950 ADMISSION DATE: 07/30/2023 1:00 PM TODAY'S DATE: 08/03/2023 Reason for Consult: choledocholithiasis HISTORY OF PRESENT ILLNESS: The patient is a 72 y.o. female who presented to ICU on 07/30/23 with ESBL ecoli bacteremia 2/2 to obstructing kidney stone and had stent and cystoscopy placed by Urology. Patient currently intubated and in ICU. General Surgery consulted for abnormal CT. Noted abdominal twitching and CT abd/pelvis performed showing extrahepatic duct dilation, cholelithiasis and choledocholithiasis with ductal dilation at 1.2cm. Normal LFT's. Normal WBC. Patient with PMH of afib on Eliquis. Patient also currently with PCR positive for torres and rhino/enterovirus. Thoroughly reviewed the patient's medical history, family history, social history and review of systems with the patient today in the office. Please see medical record for pertinent positives. Past Medical History: Past Medical History: Diagnosis Date A-fib (CMS/HCC) (HCC) Anemia Diabetes (HCC) Lymphedema Obesity Past Surgical History: History reviewed. No pertinent surgical history. Current Medications: Scheduled Meds:ammonium lactate, , Topical, BID [Held by provider] apixaban, 5 mg, Oral, BID ascorbic acid, 250 mg, Oral, Daily atorvastatin, 20 mg, Oral, Nightly baclofen, 5 mg, Oral, TID bisacodyl, 10 mg, Rectal, BID Diclofenac Sodium, 4 g, Topical, BID donepezil, 10 mg, Oral, Nightly famotidine (Pepcid) 20 mg in sodium chloride (PF) 0.9 % 10 mL injection, 20 mg, IntraVENous, BID gabapentin, 200 mg, Oral, TID Hydrocortisone Sod Suc (PF), 50 mg, IntraVENous, q12h insulin lispro, 0-18 Units, SubCUTAneous, q6h insulin NPH, 30 Units, SubCUTAneous, q12h ipratropium-albuterol, 3 mL, Nebulization, TID lidocaine, , Topical, Once [Held by provider] lisinopril, 10 mg, Oral, Daily meropenem, 2,000 mg, IntraVENous, q8h miconazole, , Topical, BID nystatin, , Topical, BID Petrolatum, , Topical, BID senna-docusate sodium, 2 tablet, Oral, BID sertraline, 50 mg, Oral, Daily sodium chloride 0.9%, 10 mL, IntraVENous, 2 times per day sodium chloride 0.9%, 5-40 mL, IntraCATHeter, q8h sodium chloride, 4 mL, Nebulization, BID stomahesive in petrolatum, , Topical, q8h vancomycin, 1,000 mg, IntraVENous, q12h Continuous Infusions:fentaNYL, 25-200 mcg/hr, Last Rate: Stopped (08/03/23 0830) heparin, 5-30 Units/kg/hr, Last Rate: 11 Units/kg/hr (08/03/23 0855) norepinephrine, 1-100 mcg/min, Last Rate: Stopped (08/01/23 1530) propofol, 5-50 mcg/kg/min, Last Rate: Stopped (08/03/23 0830) PRN Meds:.PRN medications: [Held by provider] acetaminophen OR [Held by provider] acetaminophen, dextrose, dextrose, glucagon (rDNA), glucose, heparin, heparin, labetalol, ondansetron ODT OR ondansetron, polyethylene glycol (PEG) 3350, sodium chloride, sodium chloride 0.9%, sodium chloride 0.9%, sodium chloride 0.9% Prior to Admission medications Medication Sig Start Date End Date Taking? Authorizing Provider acetaminophen (Tylenol) 325 MG tablet Take 325 mg by mouth 3 times daily. Historical Provider, apixaban (Eliquis) 5 MG tablet Take 5 mg by mouth 2 times daily. Historical Provider, ascorbic acid (Vitamin C) 250 MG tablet Take 250 mg by mouth daily. Historical Provider, atorvastatin (Lipitor) 20 MG tablet Take 20 mg by mouth daily. Historical Provider, baclofen (Lioresal) 5 MG tablet Take 1 tablet by mouth 3 times daily. 04/14/21 Historical Provider, Calcium Carbonate-Vitamin D (Oyster Shell Calcium/D) 500-5 MG-MCG tablet Take 1 tablet by mouth daily. Historical Provider, Diclofenac Sodium (Voltaren) 1 % gel Apply 4 g topically 2 times daily. 01/11/23 Paige Rivera DO donepezil (Aricept) 10 MG tablet Take 10 mg by mouth Nightly. Historical Provider, furosemide (Lasix) 40 MG tablet Take 40 mg by mouth in the morning and 40 mg in the evening. 07/11/22 Historical Provider, gabapentin (Neurontin) 100 MG capsule Take 2 capsules (200 mg) by mouth 3 times daily. 01/11/23 04/11/23 Paige Rivera DO insulin glargine (Lantus) 100 UNIT/ML injection Inject 10 Units under the skin Nightly. 06/16/22 06/16/23 Elise Park MD Insulin Lispro (Humalog) 100 UNIT/ML solution injection Inject 3 Units under the skin in the morning and 3 Units at noon and 3 Units in the evening. Inject with meals. 08/07/22 08/07/23 Juan Becker, lisinopril 10 MG tablet Take 10 mg by mouth daily. Historical Provider, nystatin (Mycostatin) [id number] UNIT/GM powder 03/22/22 Historical Provider, senna-docusate (Helena-Colace) 8.6-50 MG tablet Take 100 tablets by mouth Every 24 hours. 04/06/21 Historical Provider, sertraline (Zoloft) 50 MG tablet Take 50 mg by mouth daily. 08/18/21 Historical Provider, Allergies: Ertapenem Social History: Social History Socioeconomic History Marital status: Spouse name: Not on file Number of children: Not on file Years of education: Not on file Highest education level: Not on file Occupational History Not on file Tobacco Use Smoking status: Never Smokeless tobacco: Never Vaping Use Vaping Use: Never used Substance and Sexual Activity Alcohol use: Never Drug use: Never Sexual activity: Not Currently Other Topics Concern Not on file Social History Narrative Not on file Social Determinants of Health Financial Resource Strain: Not on file Food Insecurity: Not on file Transportation Needs: Not on file Physical Activity: Not on file Stress: Not on file Social Connections: Not on file Intimate Partner Violence: Not At Risk (01/08/2023) Humiliation, Afraid, Rape, and Kick questionnaire Fear of Current or Ex-Partner: No Emotionally Abused: No Physically Abused: No Sexually Abused: No Housing Stability: Not on file Family History: No family history on file. REVIEW OF SYSTEMS: Unable to obtain as patient intubated and sedated PHYSICAL EXAM: VITALS: BP 127/62 Pulse 91 Temp 36.8 C (98.3 F) (Oral) Resp 23 Ht 5' 5" (1.651 m) Wt (!) 350 lb (159 kg) SpO2 100% BMI 58.24 kg/m 24HR INTAKE/OUTPUT: I/O last 3 completed shifts: In: 4063 (25.6 mL/kg) [I.V.:2396 (15.1 mL/kg); NG/GT:1567; IV Piggyback:100] Out: 2300 (14.5 mL/kg) [Urine:2300 (0.4 mL/kg/hr)] Weight: 158.8 kg No intake/output data recorded. CONSTITUTIONAL: Appears well nourished. No distress EYES: PERRL, conjunctiva normal ENT: Normocepalic,atraumatic, without obvious abnormality NECK: supple, symmetrical, trachea midline, no thyromegaly LUNGS: Resp effort easy and unlabored, breath sounds normal. Intubated on vent CARDIOVASCULAR: NO JVD, RRR, No murmur ABDOMEN: soft, non distended, some abdominal grimacing with abdominal palpation upper abdomen, peritoneal signs absent, no hepatosplenomegaly and hernia absent MUSCULOSKELETAL: Normal range of motion, no edema NEUROLOGIC: Mental Status Exam: Level of Alertness: sedated Sensation globally intact PSYCHIATRIC: Oriented to person, place, and time. Speech is normal, mood appears normal SKIN: Warm, dry, and intact DATA: CT abdomen pelvis wo IV contrast Status: Final result Link to Procedure Log Procedure Log Orders Requiring a Screening Form Procedure Order Status Order ID Accession Number Form Status CT abdomen pelvis wo IV contrast Completed [id number] Created PACS Images Show images for CT abdomen pelvis wo IV contrast Study Result Narrative & Impression Patient Name: SALAZAR COYLE : 1950 Exam Date/Time: 08/02/2023 16:56 Procedure: CT ABDOMEN PELVIS WO IV CONTRAST Ordering Provider: DEL REAL CHELSEA Reason For Exam: S/p ureteral stent placement CT ABDOMEN AND PELVIS WITHOUT IV CONTRAST CLINICAL INDICATION: S/p ureteral stent placement TECHNIQUE: Multidetector spiral transaxial sequence was performed through the abdomen and pelvis without intravenous contrast. Images were reconstructed at 3 mm slice width at 3 mm interval. Dose reduction was employed with automated exposure control. COMPARISON: CT abdomen pelvis from 07/31/2023 FINDINGS: Exam quality: This examination is limited for the evaluation of solid organs and vascular structures due to the lack of intravenous contrast. Limitations: Examination is somewhat limited due to patient body habitus Chest base: Refer to separate CT chest report from the same date. Liver: Normal size and contour. No identifiable lesion. Biliary tree: Cholelithiasis. Abnormal gallbladder distention. There appears to be a single stone versus small adjacent stones in the common bile duct, measuring up to 8 mm transverse by 15 mm CC (series 3 image 65 and series 6 image 36). Abnormal distention of the extrahepatic duct, which measures up to 12 mm. Pancreas: Pancreatic parenchymal atrophy. No peripancreatic edema.. Spleen: There is a subtle hypodense lesion in the posterior aspect of the spleen, measuring 4.2 cm x 3.3 cm. This appears to have been present on the prior CT exams and measures the density of a cyst. Assessment of the lesion is somewhat limited due to patient body habitus and proximity of the lesion to the diaphragm. Adrenals: Normal. Kidneys: Left ureteral stent, which appears appropriately positioned. No hydronephrosis. Apparent tiny 1 mm left renal calculus, nonobstructing. Calculus in the left renal pelvis, measuring 5 mm transverse by 10 mm CC. No definite ureteral calculus. Free fluid: Mild ascites. Vasculature: Atherosclerotic calcifications are seen in the aorta and its branches. The aorta is normal in caliber. Bowel: Enteric tube terminates in the distal stomach. A portion of the bowel extends beyond the [id number] due to patient body habitus. No bowel obstruction. No bowel wall pneumatosis. The appendix is not definitively identified. No secondary CT findings to suggest the presence of acute appendicitis. Lymphadenopathy: None. Pelvic organs/viscera: Status post hysterectomy.. Bladder: Jose catheter in the nondistended urinary bladder.. Osseous structures: Degenerative change of the spine. Bilateral sacroiliac joint DJD. Bilateral hip joint DJD. Soft Tissues: Diffuse muscle atrophy.. IMPRESSION: Cholelithiasis and choledocholithiasis. Abnormal distention of the gallbladder and the extrahepatic duct. Left-sided nephrolithiasis. Left ureteral stent appears appropriately positioned. No hydronephrosis. Mild ascites. Subtle hypodense splenic lesion, measuring 4.2 cm, favored to represent a cyst. Given the limitations of this exam, recommend further evaluation with targeted splenic ultrasound. Report Dictated on Electronically Signed By: Leonor Cardona MD Electronically Signed Date/Time: 08/03/2023 8:17 AM EDT Result History CT abdomen pelvis wo IV contrast (Order #[id number]) on 08/03/2023 - Order Result History Report CT abdomen pelvis wo IV contrast: Patient Communication Add Comments Not seen Breast Imaging Recommendations Salazar Coyle No recommendations exist for this order. Risk Scores No Tyrer-Cuzick assessment data. No Risk Considerations assessment data. No NCC HBOC Guidelines assessment data. No NCCN Mccartney assessment data. No Risk Explanation Tyrer-Cuzick 8 assessment data. No BRCAPRO assessment data. No Myriad risk assessment data. No Vadim risk assessment data. No Salazar risk assessment data. No BLACK BELT Request ID assessment data. No [facility] senior sql server database developer ID assessment data. Breast Cancer Risk Navigation Events None Signed by Signed Time Phone Pager Leonor Cardona MD 08/03/2023 08:17 Exam Information Status Exam Begun Exam Ended Final 08/02/2023 16:42 08/02/2023 16:56 External Results Report Open External Results Report Encounter View Encounter Screening Form Questions No questions have been answered for this form. Study Details Open Study Details Order Transmittal Tracking CT abdomen pelvis wo IV contrast (Order #[id number]) on 08/02/[address] abdomen pelvis wo IV contrast (Order #[id number]) on 08/02/23 CBC: Recent Labs 08/01/2359908/02/232 08/03/23 0348 WBC 19.7* 8.2 5.4 HGB 8.8* 8.7* 8.2* HCT 26.6* 26.4* 25.7* PLT 95* 74* 72* BMP: Recent Labs 08/02/23194108/03/23 0015 08/03/23 0348 NA 141 141 140 K 4.1 4.0 4.0 CL 106 105 103 CO2 25 27 25 BUN 67* 70* 67* CREATININE 1.41* 1.27* 1.36* GLUCOSE 106* 216* 234* Hepatic: Recent Labs 08/01/2359908/01/23 19308/03/23 0348 AST 21 23 18 ALT 16 17 15 BILITOT 0.8 0.6 0.5 ALKPHOS 81 73 59 Mag: Recent Labs 08/02/23194108/03/23 0015 08/03/23 0348 MG 2.1 2.0 2.1 Phos: Recent Labs 08/02/23194108/03/23 0015 08/03/23 0348 PHOS 3.1 3.2 3.3 INR: Recent Labs 08/01/2359908/02/23 0422 INR 1.1 1.1 IMPRESSION/RECOMMENDATIONS: Ms. Coyle is a 72 y/o F who presented with ESBL ecoli bacteremia with recent abnormal CT - CT abd/pelvis with cholelithiasis, abnormal gallbladder distention, choledocholithiasis and extrahepatic duct dilation with CBD measuring 1.2 cm - Normal LFT's - Normal WBC - GI consulted for evaluation of choledocolithiasis - Will obtain baseline US abdomen - Disposition: NO acute surgical need at this time. No surgical plans this admission planned given ongoing current medical status. Further workup of possible choledocholithiasis through GI and evaluation of timing for possible ERCP if indicated. Patient counseled on risks, benefits, and alternatives of treatment plan at length. Patient states an understanding and willingness to proceed with plan. Thank you for the opportunity to care for your patient, please don't hesitate to contact me for any questions or concerns you may have. Anibal Huff, ZINA - PATRICK Associated Order(s): IP CONSULT TO NEPHROLOGY [facility] Consult Note Reason for Consult: assistance with volume management Requesting Physician: Maya Jones* Chief Complaint: Chief Complaint Patient presents with Altered Mental Status History of Present Ilness: 72-year-old female with history of dementia, A-fib on Eliquis, DMT2, PHOEBE, morbid obesity, chronic Jose secondary to neurogenic bladder, chronic pain, anxiety, and admission 05/2022 with ESBL E. coli bacteremia with left UPJ calculus s/p stent and extended meropenem who presented with acute encephalopathy requiring intubation, admitted with septic shock secondary to UTI, left hydronephrosis, s/p cystoscopy with ureteral stent placement 07/30. Nephrology is asked to see the patient for assistance with volume management. Patient currently has a scr level of 1.36, previously 1.27 and has a baseline of ~1.2-1.5. Has received 3 doses of IV lasix over the last 24 hours, but has needed albumin x2 for support. Was dependent on pressors, now discontinued. Patient is intubated and sedated and the information for the purpose of this consult was collected from the electronic medical chart. Making good urine. Past Medical History: Past Medical History: Diagnosis Date A-fib (CMS/HCC) (HCC) Anemia Diabetes (HCC) Lymphedema Obesity Past Surgical History: History reviewed. No pertinent surgical history. Home Medications: No current facility-administered medications on file prior to encounter. Current Outpatient Medications on File Prior to Encounter Medication Sig Dispense Refill acetaminophen (Tylenol) 325 MG tablet Take 325 mg by mouth 3 times daily. apixaban (Eliquis) 5 MG tablet Take 5 mg by mouth 2 times daily. ascorbic acid (Vitamin C) 250 MG tablet Take 250 mg by mouth daily. atorvastatin (Lipitor) 20 MG tablet Take 20 mg by mouth daily. baclofen (Lioresal) 5 MG tablet Take 1 tablet by mouth 3 times daily. Calcium Carbonate-Vitamin D (Oyster Shell Calcium/D) 500-5 MG-MCG tablet Take 1 tablet by mouth daily. Diclofenac Sodium (Voltaren) 1 % gel Apply 4 g topically 2 times daily. 50 g 1 donepezil (Aricept) 10 MG tablet Take 10 mg by mouth Nightly. furosemide (Lasix) 40 MG tablet Take 40 mg by mouth in the morning and 40 mg in the evening. gabapentin (Neurontin) 100 MG capsule Take 2 capsules (200 mg) by mouth 3 times daily. 180 capsule 2 insulin glargine (Lantus) 100 UNIT/ML injection Inject 10 Units under the skin Nightly. 10 mL 12 Insulin Lispro (Humalog) 100 UNIT/ML solution injection Inject 3 Units under the skin in the morning and 3 Units at noon and 3 Units in the evening. Inject with meals. 10 mL 2 lisinopril 10 MG tablet Take 10 mg by mouth daily. nystatin (Mycostatin) 840271 UNIT/GM powder senna-docusate (Helena-Colace) 8.6-50 MG tablet Take 100 tablets by mouth Every 24 hours. sertraline (Zoloft) 50 MG tablet Take 50 mg by mouth daily. Allergies: Ertapenem Social History: Social History Socioeconomic History Marital status: Spouse name: Not on file Number of children: Not on file Years of education: Not on file Highest education level: Not on file Occupational History Not on file Tobacco Use Smoking status: Never Smokeless tobacco: Never Vaping Use Vaping Use: Never used Substance and Sexual Activity Alcohol use: Never Drug use: Never Sexual activity: Not Currently Other Topics Concern Not on file Social History Narrative Not on file Social Determinants of Health Financial Resource Strain: Not on file Food Insecurity: Not on file Transportation Needs: Not on file Physical Activity: Not on file Stress: Not on file Social Connections: Not on file Intimate Partner Violence: Not At Risk (01/08/2023) Humiliation, Afraid, Rape, and Kick questionnaire Fear of Current or Ex-Partner: No Emotionally Abused: No Physically Abused: No Sexually Abused: No Housing Stability: Not on file Family History: No family history on file. Review of Systems: No ROS could be done as patient is intubated and sedated. Physical exam: Constitutional: Vitals: 08/03/23 0906 08/03/23 0907 08/03/23 0908 08/03/23 0909 BP: BP Location: Patient Position: Pulse: 94 89 87 91 Resp: 14 17 22 23 Temp: TempSrc: SpO2: 100% 100% 100% 100% Weight: Height: CURRENT TEMPERATURE: Temp: 36.8 C (98.3 F) MAXIMUM TEMPERATURE OVER 24HRS: Temp (24hrs), Av.8 C (98.2 F), Min:36.6 C (97.9 F), Max:36.9 C (98.4 F) CURRENT PULSE: Heart Rate: 91 CURRENT BLOOD PRESSURE: BP: 127/62 24HR BLOOD PRESSURE RANGE: Systolic (24hrs), Av , Min:87 , Max:178 ; Diastolic (24hrs), Av, Min:35, Max:100 24HR INTAKE/OUTPUT: Intake/Output Summary (Last 24 hours) at 08/03/2023 1015 Last data filed at 08/03/2023 0600 Gross per 24 hour Intake 2412 ml Output 1750 ml Net 662 ml Physical Exam: Appearance: intubated and sedated Eyes: PERRLA, clear sclera ENT: hearing normal, no oral thrush, no erythema or exudate on hard or soft palate, tongue normal, ETT+ Neck: supple, no JVD, no thyromegaly Respiratory: breathing unlabored, vent driven respirations Cardiovascular: heart RRR without m/g/r, pedal pulses palpable Gastrointestinal: abdomen soft, non-tender, non-distended, normoactive bowel sounds. No masses or hernia. Musculoskeletal: 2+ B/l edema, dryness of skin b/l legs + Skin: warm and dry, redness on B/l legs. Neurologic: symmetric strength and sensation Psychiatric: intubated and sedated. Data: LIVER PROFILE: Recent Labs 08/01/23 0600 08/01/23 1937 08/03/23 0348 AST 21 23 18 ALT 16 17 15 BILIDIR 0.0 0.0 0.0 BILITOT 0.8 0.6 0.5 ALKPHOS 81 73 59 CBC: Recent Labs 08/01/23 0600 08/02/23 0422 08/03/23 0348 WBC 19.7* 8.2 5.4 RBC 2.57* 2.54* 2.45* HGB 8.8* 8.7* 8.2* HCT 26.6* 26.4* 25.7* MCV 103.5* 103.9* 104.9* RDW 14.8 14.6 14.6 PLT 95* 74* 72* BMP: Recent Labs 08/02/23 1942 08/03/23 0015 08/03/23 0348 NA 141 141 140 K 4.1 4.0 4.0 CL 106 105 103 CO2 25 27 25 PHOS 3.1 3.2 3.3 BUN 67* 70* 67* CREATININE 1.41* 1.27* 1.36* BNP: No results for input(s): "BNP" in the last 72 hours. ABGs: No results found for: "PH", "PCO2", "PO2", "HCO3", "O2SAT" Nephro Labs: No results for input(s): "COLORU", "CLARITYU", "PH", "PHUR", "LABSPEC", "GLUCOSEU", "BLOODU", "LEUKOCYTESUR", "NITRITE", "BILIRUBINUR", "UROBILINOGEN", "BACTERIA", "AMORPHOUS", "CASTS" in the last 72 hours. No lab exists for component: "PROTEINUA", "KEYTONESU", "RBCUA", "WBCUA", "CRYSTAL" Imaging: reviewed Assessment: CKD3b (N18.32) Volume overload (E87.70) Acute hypoxic respiratory failure (J96.01) Septic shock (R65.21) UTI DMT2 Anemia Plan: -Scr currently 1.36, stable at bl~1.2-1.5, non-oliguric, BP unstable -Can diurese on a daily basis with IV lasix 80mg +/- albumin support based on renal numbers. -Volume status hard to assess, but does appear to be on the hypervolemic side. Unclear how much of the edema is baseline. 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 Please do not hesitate to call with any questions or concerns. Associated Order(s): IP CONSULT TO ENDOCRINOLOGY Department of Internal Medicine Division of Endocrinology, Diabetes, & Metabolism Endocrinology Note Patient Name: Salazar Coyle : 1950 AGE: 72 y.o. Room/Bed: [facility]/ A Admission Date: 07/30/2023 Visit Date: 08/02/2023 Reason for Endocrine Consult: Hyperglycemia requiring insulin GGT, on steroids and tube feeds Provider/Team Requesting Consult: Dr. Del Real PCP: Paige Rivera DO Outpt Desktop Support Associate: Yes Dr. Woods ASSESSMENT: Type II Diabetes with hyperglycemia Urosepsis versus pyelonephritis Severe sepsis History of ESBL bacteremia requiring long dose meropenem History left UPJ calculus Chronic Jose with neurogenic bladder Leukocytosis Metabolic acidosis Lactic acidosis NAGMA CKD stage IIIb WHITLEY Hypertension Hyperlipidemia PHOEBE Noncompliance to CPAP Chronic lower extremity wounds Chronic venous stasis PLAN: Continue insulin drip as insulin requirements are high with infection and steroids Start NPH 20 units Q12 to reduce insulin drip requirements. Critical care team planning to decrease steroid dosing tomorrow to BID Insulin requirements should reduce as steroid dosing decreases ICU goal <180 GMF goal <150 POCT BG ACHS Hypoglycemia management per protocol Carb controlled diet ANTICIPATED ENDOCRINE HOME GOING RECOMMENDATIONS: Optimized for Discharge from Endocrine standpoint: No Home Going Endocrine Rx Recommendations-- Lantus -dose to be determined Humalog -dose to be determined Outpt Follow Up-- Clinical clinic endocrinology SUBJECTIVE/HPI: CHIEF COMPLAINT: Chief Complaint Patient presents with Altered Mental Status 72 YO female w/PMH dementia, T2DM, morbid obesity, PHOEBE, chronic Jose 2/2 neurogenic bladder, Anxiety and chronic pain. OF note, patient admitted May 2022 w/ ESBL E. Coli bacteremia with left UPJ calculus s/p stent and extended IV meropenem. Patient did require laser lithotripsy and stent exchange at this time. Patient arrived to [facility] ED for altered mental status. Cystoscopy, left ureteral stent placement completed 07/31/2023 Patient is presently on hydrocortisone 50 mg IV Q8 Tube feed. Insulin drip running at 12 units/h presently Patient requiring high doses of insulin 24-hour total is 203 units Type of DM: 2 Onset of DM: Home DM Medication Regimen: Lantus 10 units nightly Humalog 3 units 3 times daily before meals DM control (last A1c/glucose data): Lab Results Component Value Date HGBA1C 9.0 (H) 07/30/2023 Glucose Date/Time Value Ref Range Status 08/02/2023 03:25 PM 149 (H) 70 - 100 mg/dL Final 08/02/2023 02:32 PM 160 (H) 70 - 100 mg/dL Final 08/02/2023 01:30 PM 165 (H) 70 - 100 mg/dL Final 08/02/2023 12:19 PM 158 (H) 70 - 100 mg/dL Final 08/02/2023 11:10 AM 138 (H) 70 - 100 mg/dL Final 08/02/2023 10:18 AM 127 (H) 70 - 100 mg/dL Final Review of Systems Unable to perform ROS: Intubated ROS negative except for those mentioned in HPI. OBJECTIVE: Vitals: 08/02/23 1449 08/02/23 1505 08/02/23 1526 08/02/23 1532 BP: (!) 102/39 (!) 102/49 96/56 116/85 Pulse: 94 108 104 97 Resp: 16 23 20 (!) 31 Temp: TempSrc: SpO2: 98% 97% 98% 98% Weight: Height: Physical Exam Patient is off the unit for CT at this time. Spoke with Critical Care physician regarding plan. 24 hour intake/output: Intake/Output Summary (Last 24 hours) at 08/02/2023 1553 Last data filed at 08/02/2023 1502 Gross per 24 hour Intake 2549 ml Output 950 ml Net 1599 ml Diet: Diet, tube feeding no tray Orogastric; Vital High Protein; Continuous; Yes; 10; Q 4 Hours; 20; 45; Water; Sterile water; 30; Q 4 Hours Medications (as per EMR): HomeMeds: Current Outpatient Medications Medication Instructions acetaminophen (TYLENOL) 325 mg, Oral, 3 times daily apixaban (ELIQUIS) 5 mg, Oral, 2 times daily ascorbic acid (VITAMIN C) 250 mg, Oral, Daily atorvastatin (LIPITOR) 20 mg, Oral, Daily baclofen (Lioresal) 5 MG tablet 1 tablet, Oral, 3 times daily Calcium Carbonate-Vitamin D (Oyster Shell Calcium/D) 500-5 MG-MCG tablet 1 tablet, Oral, Daily Diclofenac Sodium (VOLTAREN) 4 g, Topical, 2 times daily donepezil (ARICEPT) 10 mg, Oral, Nightly furosemide (LASIX) 40 mg, Oral, 2 time daily gabapentin (NEURONTIN) 200 mg, Oral, 3 times daily insulin glargine (LANTUS) 10 Units, SubCUTAneous, Nightly Insulin Lispro (HUMALOG) 3 Units, SubCUTAneous, 3 times daily with meals lisinopril 10 mg, Oral, Daily nystatin (Mycostatin) 299330 UNIT/GM powder No dose, route, or frequency recorded. senna-docusate (Helena-Colace) 8.6-50 MG tablet 100 tablets, Oral, Every 24 hours sertraline (ZOLOFT) 50 mg, Oral, Daily Scheduled Meds:ammonium lactate, , Topical, BID [Held by provider] apixaban, 5 mg, Oral, BID ascorbic acid, 250 mg, Oral, Daily atorvastatin, 20 mg, Oral, Nightly baclofen, 5 mg, Oral, TID bisacodyl, 10 mg, Rectal, BID Diclofenac Sodium, 4 g, Topical, BID donepezil, 10 mg, Oral, Nightly famotidine (Pepcid) 20 mg in sodium chloride (PF) 0.9 % 10 mL injection, 20 mg, IntraVENous, BID gabapentin, 200 mg, Oral, TID Hydrocortisone Sod Suc (PF), 50 mg, IntraVENous, q8h ipratropium-albuterol, 3 mL, Nebulization, TID lidocaine, , Topical, Once [Held by provider] lisinopril, 10 mg, Oral, Daily meropenem, 2,000 mg, IntraVENous, q8h miconazole, , Topical, BID nystatin, , Topical, BID Petrolatum, , Topical, BID polyethylene glycol (PEG) 3350, 17 g, Oral, Daily senna-docusate sodium, 2 tablet, Oral, BID sertraline, 50 mg, Oral, Daily sodium chloride 0.9%, 10 mL, IntraVENous, 2 times per day sodium chloride 0.9%, 5-40 mL, IntraCATHeter, q8h stomahesive in petrolatum, , Topical, q8h vancomycin, 1,500 mg, IntraVENous, q24h Continuous Infusions:fentaNYL, 25-200 mcg/hr, Last Rate: 75 mcg/hr (08/02/23 1505) heparin, 5-30 Units/kg/hr, Last Rate: 10 Units/kg/hr (08/02/23 1141) insulin regular, 1-50 Units/hr, Last Rate: 12 Units/hr (08/02/23 1526) norepinephrine, 1-100 mcg/min, Last Rate: Stopped (08/01/23 1530) propofol, 5-50 mcg/kg/min, Last Rate: 5 mcg/kg/min (08/02/23 1447) PRN Meds:PRN medications: [Held by provider] acetaminophen OR [Held by provider] acetaminophen, dextrose, dextrose, glucagon (rDNA), glucose, heparin, heparin, labetalol, ondansetron ODT OR ondansetron, polyethylene glycol (PEG) 3350, sodium chloride, sodium chloride 0.9%, sodium chloride 0.9%, sodium chloride 0.9% Diagnostic Workup: I reviewed pertinent Laboratory results, Radiographic results, and Other Clinical Notes at the time of today's encounter. Labs: No components found for: "LABA1C" No components found for: "EAG" Lab Results Component Value Date NA 140 08/02/2023 K 4.0 08/02/2023 CL 106 08/02/2023 CO2 27 08/02/2023 BUN 66 (H) 08/02/2023 CREATININE 1.46 (H) 08/02/2023 GLUCOSE 152 (H) 08/02/2023 CALCIUM 8.3 (L) 08/02/2023 No results found for: "CHLPL", CHOL No results found for: "TRIG" No results found for: "HDL" No results found for: "LDLCALC" No results found for: "VLDL" No results found for: "CHOLHDLRATIO" No results found for: "LKZQ50XLK" No results found for: "TSH", "I9FJUBQ", "B1ANYWY", "THYROIDAB" Radiology reportsas per the Radiologist Radiology: POCT glucose meter Result Date: 07/31/2023 Performed by: [facility], [address] [place] [address], [place] [address] CLIA ID: [id number] POCT glucose meter Result Date: 07/31/2023 Performed by: [facility], [address] [place] [address], [place] [address] CLIA ID: [id number] POCT glucose meter Result Date: 07/31/2023 Performed by: [facility], [address] [place] [address], [place] [address] CLIA ID: [id number] POCT glucose meter Result Date: 07/31/2023 Performed by: [facility], [address] [place] [address], [place] [address] CLIA ID: [id number] POCT glucose meter Result Date: 07/31/2023 Performed by: [facility], [address] [place] [address], [place] [address] CLIA ID: [id number] POCT glucose meter Result Date: 07/31/2023 Performed by: [facility], [address] [place] [address], [place] [address] CLIA ID: [id number] POCT glucose meter Result Date: 07/31/2023 Performed by: [facility], [address] [place] [address], [place] [address] CLIA ID: [id number] POCT glucose meter Result Date: 07/31/2023 Performed by: [facility], [address] [place] [address], [place] [address] CLIA ID: [id number] POCT glucose meter Result Date: 07/31/2023 Performed by: [facility], [address] [place] [address], [place] [address] CLIA ID: [id number] POCT glucose meter Result Date: 07/31/2023 Performed by: [facility], [address] [place] [address], [place] [address] CLIA ID: [id number] POCT glucose meter Result Date: 07/31/2023 Performed by: [facility], [address] [place] [address], [place] [address] CLIA ID: [id number] POCT glucose meter Result Date: 07/31/2023 Performed by: [facility], [address] [place] [address], [place] [address] CLIA ID: [id number] POCT glucose meter Result Date: 07/31/2023 Performed by: [facility], [address] [place] [address] CLIA ID: [id number] Transthoracic echocardiogram (TTE) complete with contrast, bubble, strain, and 3D PRN Result Date: 07/31/2023 Left Ventricle: Left ventricle size is normal. Mildly increased wall thickness. Normal left ventricular systolic function. EF by 2D Simpsons Biplane is 63%. Normal wall motion. Right Ventricle: Right ventricle size is normal. Normal systolic function. Aortic Valve: Trileaflet. No cusp thickening. Mildly calcified cusps. Mild annular calcification. No regurgitation. Valve appears to open well velocities suggest Mild stenosis of the aortic valve. AV mean gradient is 9 mmHg. AV area by continuity VTI is 2.3 cm2. Left Atrium: Left atrium is dilated. POCT glucose meter Result Date: 07/31/2023 Performed by: [facility] [place] [facility], [address] [place] [address] CLIA ID: [id number] POCT glucose meter Result Date: 07/31/2023 Performed by: [facility], [address] [place] [address] CLIA ID: [id number] POCT glucose meter Result Date: 07/31/2023 Performed by: [facility], [address] [place] [address] CLIA ID: [id number] POCT glucose meter Result Date: 07/31/2023 Performed by: [facility], [address] [place] [address] CLIA ID: [id number] FL GUIDANCE OR USE ONLY - NON RESULTABLE Result Date: 07/31/2023 There is no interpretation needed for this exam. ECG 12 lead Sinus tachycardia IVCD, consider LBBB Electronically Signed On 07-31-2023 06:14:25 EDT by Emilie Nicole POCT glucose meter Result Date: 07/31/2023 Performed by: [facility], [address] [place] [address] CLIA ID: [id number] XR chest 1 view Result Date: 07/31/2023 Patient Name: SALAZAR COYLE : 1950 Exam Date/Time: 07/31/2023 04:56 Procedure: XR CHEST 1 VIEW Ordering Provider: DEL REAL CHELSEA Reason For Exam: verify ETT placement EXAMINATION: XR chest AP. EXAM DATE & TIME: 07/31/2023 4:56 AM EDT INDICATION: verify ETT placement ADDITIONAL INFORMATION: 72-year-old female presents for follow-up after intubation COMPARISON: Chest x-ray dated 07/31/2023 TECHNIQUE: Frontal view of the chest was obtained. FINDINGS: Lines/support devices: An endotracheal tube is present with its distal tip approximately 1.9 cm above the candy. Unchanged right internal jugular approach central venous catheter, terminating in the region of the cavoatrial junction. An NG/OG tube is present with its distal tip coursing subdiaphragmatically and beyond the [id number]. Cardiac leads project over the chest, somewhat limiting evaluation. Cardiomediastinal silhouette: The heart is slightly enlarged. Lungs/pleura: A small left pleural effusion is seen. Right pleural spaces are clear. No evidence of pneumothorax. Osseous structures: Degenerative changes of the spine and shoulders are seen. No acute osseous abnormality is demonstrated. Other findings: None. 1. Small left pleural effusion. Underlying consolidation is not excluded. 2. Lines and support devices as above. Report Dictated on Electronically Signed By: Catarino Sue MD Electronically Signed Date/Time: 07/31/2023 5:05 AM EDT POCT glucose meter Result Date: 07/31/2023 Performed by: [facility] [place] [facility], [address] [place] [address] CLIA ID: [id number] POCT glucose meter Result Date: 07/31/2023 Performed by: [facility] [place] [facility], [address] [place] [address] CLIA ID: [id number] XR chest 1 view Result Date: 07/31/2023 Patient Name: SALAZAR COYLE : 1950 Exam Date/Time: 07/31/2023 01:43 Procedure: XR CHEST 1 VIEW Ordering Provider: DEL REAL CHELSEA Reason For Exam: PROCEDURES PORTABLE CHEST CLINICAL INDICATION: PROCEDURES TECHNIQUE: Portable AP COMPARISON: 07/30/2023 FINDINGS: Right IJ central line tip projects over the SVC. No focal consolidation or pulmonary edema. No pleural effusions or pneumothorax. The heart demonstrates normal size. Calcification of the thoracic aorta is noted. Degenerative change of the thoracic spine is noted. No focal consolidation or pulmonary edema. Report Dictated on Electronically Signed By: Bashir Barnes MD Electronically Signed Date/Time: 07/31/2023 2:[address] abdomen pelvis wo IV contrast Result Date: 07/31/2023 Patient Name: SALAZAR COYLE : 1950 Exam Date/Time: 07/31/2023 00:27 Procedure: CT ABDOMEN PELVIS WO IV CONTRAST Ordering Provider: CALDERÓN SHANNON Reason For Exam: UTI, recurrent/complicated (Female) EXAMINATION: CT of the abdomen and pelvis without contrast. EXAM DATE & TIME: 07/31/2023 12:27 AM EDT INDICATION: UTI, recurrent/complicated (Female) ADDITIONAL INFORMATION: 72-year-old female with a provided history of UTI presents for evaluation COMPARISON: CT abdomen pelvis dated 06/10/2022 LIMITATIONS: Evaluation of the vasculature as well as the solid and hollow viscera is limited due to the lack of intravenous and oral contrast. Additional limitations are present secondary to portions of the patient outside the [id number] and associated beam hardening artifact. TECHNIQUE: Contiguous multiplanar 3 mm images were obtained from the levels of the lung bases through the pelvis without contrast. Images were reformatted in coronal and sagittal projections using the raw CT data and were interpreted in conjunction with the axial images to render the findings listed below. Dose reduction was employed with automated exposure control. FINDINGS: Included images of the lower thorax: There is bibasilar scarring/atelectasis. No focal lung consolidation or pleural effusion. Stable 3 mm right lower lobe pulmonary nodule (series 4, image 7). Previously identified 1.3 cm nodule is not included on the current examination. Hepatobiliary: Unremarkable liver without biliary dilation evident. Cholelithiasis is seen. Spleen: Unremarkable. Pancreas: There is fatty atrophy of the pancreas. Adrenal glands: Unremarkable. Kidneys, ureters and bladder: There is an 8 mm left UPJ calculus with mild to moderate upstream hydronephrosis (HU = 327). Additional coarse, nonobstructing left renal calculi are noted. No evidence of right-sided hydronephrosis or nephrolithiasis. A Jose catheter is present within the urinary bladder, decompressing it and limiting evaluation. Abdominal and pelvic vasculature: Atherosclerotic vascular calcifications are present in the abdominal aorta and its proximal major branches. Gastrointestinal: No evidence of obstruction. No pericecal inflammation to suggest acute appendicitis. Peritoneum, retroperitoneum and mesentery: No free fluid or free air. Inflammatory changes surround the left kidney. Lymph nodes: No abdominal or pelvic lymphadenopathy is evident. Solid pelvic viscera: The uterus appears surgically absent. Visualized musculoskeletal structures: No acute fracture or destructive osseous lesion is identified. Multilevel spondylosis is present. The bones are diffusely osteopenic. 1. Study limited as above. Allowing for this, there is a left UPJ calculus with mild to moderate upstream hydronephrosis. 2. Stable 3 mm right lower lobe pulmonary nodule. Recommendations for follow-up as below. Previously noted 1.3 cm pulmonary nodule is not included on the current examination. 3. Additional chronic findings as above. Updated Fleischner Society Guidelines for Management of Small Pulmonary Nodules Detected on CT (2017) SOLITARY NODULE: LOW RISK PATIENT < 6 mm - No follow-up 6 - 8 mm - 6 - 12 month follow-up, then consider 18 - 24 months > 8 mm - PET/CT, biopsy, or 3 month follow-up SOLITARY NODULE: HIGH RISK PATIENT < 6 mm - Optional 6 - 12 months follow-up (suspicious morphology or upper lobe) 6 - 8 mm - 6 - 12 month follow-up, then 18 - 24 months > 8 mm - PET/CT, biopsy, or 3 month follow-up MULTIPLE NODULES: LOW RISK PATIENT (Use most suspicious) All < 6 mm - No follow-up Any > 6 mm - 3 - 6 month follow-up, then 18 - 24 months MULTIPLE NODULES: HIGH RISK PATIENT (Use most suspicious) All < 6 mm - No follow-up Any > 6 mm - 3 - 6 month follow-up, then 18 - 24 months Report Dictated on Electronically Signed By: Catarino Sue MD Electronically Signed Date/Time: 07/31/2023 2:35 AM EDT POCT glucose meter Result Date: 07/31/2023 Performed by: [facility], [address] [place] [id number] CLIA ID: [id number] ECG 12 lead Sinus or ectopic atrial rhythm Left bundle branch block Consider anterolateral infarct Compared to ECG 03/13/2021 22:47:47 Ectopic atrial rhythm now present Left bundle-branch block now present Sinus rhythm no longer present Intraventricular conduction delay no longer present T-wave abnormality no longer present Myocardial infarct finding still present Electronically Signed On 07-31-2023 02:00:48 EDT by Paige Flores POCT glucose meter Result Date: 07/31/2023 Performed by: [facility], [address] [place] [id number] CLIA ID: [id number] POCT glucose meter Result Date: 07/31/2023 Performed by: [facility], [address] [place] [address] CLIA ID: [id number] POCT glucose meter Result Date: 07/31/2023 Performed by: [facility], [address] [place] [id number] CLIA ID: [id number] POCT arterial blood gas Result Date: 07/31/2023 Performed by: [facility], [address] [place] [id number] CLIA ID: [id number] POCT glucose meter Result Date: 07/30/2023 Performed by: [facility], [address] [place] [address] CLIA ID: [id number] POCT glucose meter Result Date: 07/30/2023 Performed by: [facility], [address] [place] [address] CLIA ID: [id number] POCT venous blood gas Result Date: 07/30/2023 Performed by: [facility], [address] [place] [address] CLIA ID: [id number] POCT glucose meter Result Date: 07/30/2023 Performed by: [facility], [address] [place] [id number] CLIA ID: [id number] CT head wo IV contrast Result Date: 07/30/2023 [facility] 1950 [id number] Exam Date/Time: 07/30/2023 14:19 Procedure: CT HEAD WO IV CONTRAST Ordering Provider: LEMON JAY Reason For Exam: Mental status change, unknown cause Indication: Mental status change Comparison date: 06/09/2022 FINDINGS: Dose reduction was employed with automated exposure control.3 mm unenhanced imaging of the brain performed. Images viewed in multiple orthogonal planes. Acute findings: No convincing acute ischemia or infarct, mass effect or midline shift, or hemorrhage. Bony structures:Unremarkable as seen. Orbits within normal limits, limited lack of contrast. Review of the paranasal sinuses shows stable right maxillary fluid-filled partially calcified structure etiology uncertain.. No acute brain process identified. Report Dictated on Electronically Signed By: Carlos Martinez MD Electronically Signed Date/Time: 07/30/2023 2:51 PM EDT XR chest 1 view Result Date: 07/30/2023 [facility] Name: [facility]AZAR COYLE : 1950 [id number] Exam Date/Time: 07/30/2023 14:01 Procedure: XR CHEST 1 VIEW Ordering Provider: LEMON JAY Reason For Exam: ALTERED MENTAL STATUS EXAM TYPE: RADIOLOGIC EXAMINATION, CHEST, SINGLE VIEW FRONTAL (CXR SINGLE VIEW) EXAM DATE AND TIME: 07/30/2023 2:01 PM EDT INDICATION: Altered mental status COMPARISON: 06/10/2022 TECHNIQUE: A single frontal view of the thorax was obtained and reviewed. Special views: None. 1. Lines/Tubes/Devices/Hardware: Leads noted. Please confirm position and function of any catheters or attempted catheters clinically. 2. Lungs: No convincing acute process.. Limited due to portable technique. Consider follow-up with PA and lateral chest for persistent symptoms. 3. Pleura: No significant effusion. No significant pneumothorax. 4. Heart and mediastinum: Limited due to technique. 5. Upper abdomen: No acute process seen. 6. Thorax:No acute bony process Report Dictated on Electronically Signed By: Carlos Martinez MD Electronically Signed Date/Time: 07/30/2023 2:03 PM EDT POCT venous blood gas Result Date: 07/30/2023 Performed by: [facility], [address] [facility] [address] CLIA ID: [id number] POCT glucose meter Result Date: 07/30/2023 Performed by: [facility], [address] [facility] [address] CLIA ID: [id number] History/Other: Past Medical History: Past Medical History: Diagnosis Date A-fib (CMS/HCC) (HCC) Anemia Diabetes (HCC) Lymphedema Obesity Past Surgical History: History reviewed. No pertinent surgical history. Allergy(ies): Allergies Allergen Reactions Ertapenem Patient tolerated July 2022 Family History: No family history on file. Social History: Social History Tobacco Use Smoking status: Never Smokeless tobacco: Never Vaping Use Vaping Use: Never used Substance Use Topics Alcohol use: Never Drug use: Never Portions of the information within this encounter were entered using an electronic dictation system. Best attempts were made to edit/proofread the information prior to note completion. Despite the review of information, some errors may remain. If there are questions related to the information contained within the note please contact the signing physician directly. Associated Order(s): IP CONSULT TO PALLIATIVE CARE Images from the original note were not included. Palliative Care Initial Consult Chief Complaint: Salazar Coyle is a 72 y.o. female with chief complaint of encephalopathy. Palliative Care provider will follow-up on 08/07/23 for URGENT needs only please reach out to automobile sales consultant provider. Assessment/Plan Encephalopathy - underlying dementia - septic shock 2/2 UTI, L hydronephrosis post cystoscopy with ureteral stent 07/31/23 Septic shock - ID following - per ICU: meropenem, vancomycin, prior norepinephrine gtt stopped 08/01/23, intermittent albumin Acute respiratory failure with hypoxia - intubated 07/30/23 - FiO2 30%, peep 8 - per ICU: steroids, duonebs, fentanyl gtt, propofol gtt Debility - bed-bound at baseline Chronic pain - seen by palliative at facility - per ICU: scheduled baclofen and gabapentin - reviewed facility MAR: prn oxycodone - call to [place], feels pain not well controlled at facility. Call to facility nurse: the whole month of July doses of oxycodone 5mg ranged from 0-4 tablets in a day, tells me is nurse dependent on whether offered or if relying on patient to ask for medication Anxiety/depression - per ICU scheduled sertraline - per facility MAR: prn lorazepam 0.5mg available, for whole month of July, only used 10 tablets - per daughter much pain and anxiety with hygiene, confirmed by facility nurse as she would refuse care - discussed once more stable from ICU standpoint will follow and see if need to schedule pain and anxiolytic medications to help relieve symptoms Palliative Care Encounter -full code - primary HCPOA in [facility] is [place] [facility] - call to Deidra at [phone], introduced myself and service, why consulted, has been followed by [facility] at facility however has never had communication with that group. She has been updated medically by Dr Del Real. Aware will follow along to ensure better symptom management once off vent, thankful for call - I also reviewed her LW in [facility], would not want long-term vent supports - will continue to follow for ongoing monitoring of progression of Pain - will continue to evaluate test results related to UTI/bacteremia , medication effectiveness for Pain, response to treatment of UTI/bacteremia - will continue treatment including none at this time, sill need to follow for oxycodone Total of 65 minutes spent on this encounter including Chart review, Patient visit and exam, Documentation in EHR, Care coordination, Communicating with primary attending or other consultants, and Counseling and educating patient/family/caregiver. Discharge planning: Not ready for discharge due to medical instability Patient meets criteria for general inpatient hospice care including the following: N/A - Palliative Care Patient Referrals to: None Discussed patient and the plan of care with the other interdisciplinary team (IDT) members of Palliative Care Team, and with Primary Attending, Patient, Family, and Floor Nurse Insert attestation statement here if applicable (.disupervision) or (.npattest) I have discussed the patient's case and plan of care with my collaborating physician Dr. Beasley Subjective: Hospital days prior to consult: 3 Trauma Consult: no. (If yes, please add .traumapall dotphrase for tracking purposes.) Subjective/Events Salazar Coyle is a 72 y.o. female living at [facility] for 24 hour care and supervision, has been resident there since 2021. PMHx includes, CVA, TIA, primarily bed bound at baseline, dementia, Afib, DM, PHOEBE, chronic jose due to neurogenic bladder, anxiety, depression, chronic pain. Brought to [facility] for encephalopathy had been given AM pills without difficulty however upon return to room she was unresponsive. Admitted to ICU, required emergent cystoscopy with L ureteral stent placement for L hydronephrosis, intubated 07/31/23, returned to ICU for care. Given multiple medical concerns, palliative care consulted for goals of care Patient intubated, sedated on vent, restrained, opens eyes but returns to slumber, face relaxed, not grimaced, breathing synchronously with vent, no evidence of nausea, vomiting, BM 08/01/23 Pain Assessment (If Pain Scale >0) See flacc Goals of care:Continue Current Management Functional Assessment: PPS: 30% Advance Directives: Full Code Surrogate: Child and HCPOA Prognosis: unknown Spiritual assessment: No spiritual distress identified Bereavement and grief: Grief Issues Not Identified Past Medical History: Diagnosis Date A-fib (CMS/HCC) (HCC) Anemia Diabetes (HCC) Lymphedema Obesity History reviewed. No pertinent surgical history. No family history on file. Unable to obtain family history due to patient intubated Allergies Allergen Reactions Ertapenem Patient tolerated July 2022 Review of Systems ROS: See palliative care ROS/ESAS below; All other systems were reviewed and are negative. Monroe Symptom Assessment Score Monroe Score Pain Score 0 Tiredness Score 0 Nausea Score 0 Depression Score 0 Anxiety Score 0 Drowsiness Score 0 Anorexia Score (0= eating well, 10= not eating) 10 Wellbeing Score (10= worst sense of well-being) 10 Constipation 0 Dyspnea Score (0= no shortness of breath) 10 FLACC Scale (For Pain Assessment of the Non-Verbal Patient) Face: 0- no particular expression Legs: 0- normal position or relaxed Activity: 0-lying quietly, moves easily Cry: 0-no cry Consolability:0-content, relaxed Total Score: 0 Assessed by: provider. Social history: status: no Marital status: Living status: fpc Work history: not empolyed Advance Care Planning: The patient has capacity to make healthcare and advanced care planning decisions No The patient's identified surrogate decision maker is Child. Ongoing Family Meeting: Participants: child Family meeting was held to discuss: as above Objective: Physical Exam BP (!) 206/104 Pulse 96 Temp 36.9 C (98.5 F) (Axillary) Resp 21 Ht 5' 5" (1.651 m) Wt (!) 350 lb (159 kg) SpO2 97% BMI 58.24 kg/m Physical Exam Vitals and nursing note reviewed. Constitutional: Appearance: She is obese. She is ill-appearing. Interventions: She is sedated, intubated and restrained. HENT: Head: Normocephalic and atraumatic. Mouth/Throat: Mouth: Mucous membranes are moist. Eyes: General: Right eye: No discharge. Left eye: No discharge. Cardiovascular: Rate and Rhythm: Normal rate and regular rhythm. Pulses: Normal pulses. Heart sounds: Normal heart sounds. No murmur heard. Comments: Generalized edema B post tib/dorsalis pedis palpable Pulmonary: Effort: Pulmonary effort is normal. She is intubated. Breath sounds: Normal breath sounds. Abdominal: General: Bowel sounds are normal. There is no distension. Palpations: Abdomen is soft. There is no mass. Genitourinary: Comments: Jose to gravity Musculoskeletal: General: Deformity (B foot drop) present. Right lower leg: Edema present. Left lower leg: Edema present. Skin: General: Skin is warm and dry. Neurological: Mental Status: She is unresponsive. Psychiatric: Comments: No agitation Current Medications: Inpatient medications reviewed: yes Home medications reviewed: no OARRS Reviewed: Yes-no reportable medications 24 Hour PRN Meds: no PRN medications in 24 hours Results/Verification of Data Review Objective data reviewed (be specific which labs, imaging reports with dates reviewed): MAR/vitals/labs/CXR report reviewed 08/02/23 07/31/23: CT A/P report reviewed Data in Support of Terminal Illness: Is patient hospice appropriate? no Transition Note Initiated: yes. Associated Order(s): IP WOUND CARE NURSE CONSULT TO [facility] Wound Care CONSULT Note Salazar Coyle AGE: 72 y.o. GENDER: female : 1950 Subjective: HISTORY of PRESENT ILLNESS HPI Salazar Coyle is a 72 y.o. female with history of dementia, A-fib on Eliquis, DMT2, PHOEBE, morbid obesity, chronic Jose secondary to neurogenic bladder, chronic pain, anxiety, and admission 05/2022 with ESBL E. coli bacteremia with left UPJ calculus s/p stent and extended meropenem who presented with acute encephalopathy requiring intubation, admitted with septic shock secondary to UTI, left hydronephrosis, s/p cystoscopy with ureteral stent placement 07/30. Wound Check focused exam HPI: Patient presents for wound check. Patient has a multiple pressure wounds which is located on the folds of body . Current symptoms: drainage: minimal, serosanguinous and red wound bed . Symptoms began unknown present on admission wound age unknown. Pain is rated unknown/10. Interventions to date: dressing changed few hrs ago. Antifungal powder and antifungal cream. Patient unable to give any information at this time. PAST MEDICAL HISTORY Active Ambulatory Problems Diagnosis Date Noted Hypertension 04/15/2021 Edema 04/11/2021 Foot ulcer (HCC) 04/13/2021 Hyperlipemia 04/15/2021 Bladder spasm 03/08/2021 Type 2 diabetes mellitus with hyperglycemia ([facility]) 03/08/2021 Wounds, multiple 04/11/2021 Degenerative disc disease, cervical 03/08/2021 Chronic pain 03/08/2021 Osteoarthrosis 03/08/2021 PAF (paroxysmal atrial fibrillation) ([facility]) 04/11/2021 Cognitive decline 04/15/2021 Morbid obesity with BMI of 60.0-69.9, adult ([facility]) 04/15/2021 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 ([facility]) 04/11/2021 Recurrent UTI 03/08/2021 Cerebrovascular accident ([facility]) 03/08/2021 Hyperglycemia 04/11/2021 Chronic indwelling Jose catheter 04/15/2021 CKD (chronic kidney disease) 04/11/2021 Asymptomatic bacteriuria 04/11/2021 Anemia 04/11/2021 Septic shock ([facility]) 06/09/2022 Inflammatory reaction due to indwelling ureteral stent, initial encounter ([facility]) 08/02/2022 Ureteropelvic junction calculus 08/07/2022 WHITLEY (acute kidney injury) ([facility]) 08/07/2022 Chronic venous stasis 08/07/2022 Radicular pain in right arm 01/08/2023 Resolved Ambulatory Problems Diagnosis Date Noted No Resolved Ambulatory Problems Past Medical History: Diagnosis Date A-fib ([facility]) ([facility]) Diabetes ([facility]) Lymphedema Obesity PAST SURGICAL HISTORY History reviewed. No pertinent surgical history. FAMILY HISTORY No family history on file. SOCIAL HISTORY Social History Tobacco Use Smoking status: Never Smokeless tobacco: Never Vaping Use Vaping Use: Never used Substance Use Topics Alcohol use: Never Drug use: Never ALLERGIES Allergies Allergen Reactions Ertapenem Patient tolerated July 2022 MEDICATIONS No current facility-administered medications on file prior to encounter. Current Outpatient Medications on File Prior to Encounter Medication Sig Dispense Refill acetaminophen (Tylenol) 325 MG tablet Take 325 mg by mouth 3 times daily. apixaban (Eliquis) 5 MG tablet Take 5 mg by mouth 2 times daily. ascorbic acid (Vitamin C) 250 MG tablet Take 250 mg by mouth daily. atorvastatin (Lipitor) 20 MG tablet Take 20 mg by mouth daily. baclofen (Lioresal) 5 MG tablet Take 1 tablet by mouth 3 times daily. Calcium Carbonate-Vitamin D (Oyster Shell Calcium/D) 500-5 MG-MCG tablet Take 1 tablet by mouth daily. Diclofenac Sodium (Voltaren) 1 % gel Apply 4 g topically 2 times daily. 50 g 1 donepezil (Aricept) 10 MG tablet Take 10 mg by mouth Nightly. furosemide (Lasix) 40 MG tablet Take 40 mg by mouth in the morning and 40 mg in the evening. gabapentin (Neurontin) 100 MG capsule Take 2 capsules (200 mg) by mouth 3 times daily. 180 capsule 2 insulin glargine (Lantus) 100 UNIT/ML injection Inject 10 Units under the skin Nightly. 10 mL 12 Insulin Lispro (Humalog) 100 UNIT/ML solution injection Inject 3 Units under the skin in the morning and 3 Units at noon and 3 Units in the evening. Inject with meals. 10 mL 2 lisinopril 10 MG tablet Take 10 mg by mouth daily. nystatin (Mycostatin) 047647 UNIT/GM powder senna-docusate (Helena-Colace) 8.6-50 MG tablet Take 100 tablets by mouth Every 24 hours. sertraline (Zoloft) 50 MG tablet Take 50 mg by mouth daily. REVIEW OF SYSTEMS Review of systems not obtained due to patient factors. Objective: BP (!) 191/77 Pulse 105 Temp 37 C (98.6 F) (Oral) Resp 15 Ht 5' 5" (1.651 m) Wt (!) 350 lb (159 kg) SpO2 97% BMI 58.24 kg/m PHYSICAL EXAM Consitutional- {alert and cooperative: Skin - many wounds present on admission below documented 3 person assist turn total care. Left neck fold - diffuse area pink rash sweat fungal odor drainage, blanchable tissues, surrounding skin intact, cleansed applied nystatin cream and antifungal powder to ABD pad . Mid lower abdomen fold -- pink tissues 100% , scant serosang drainage, 1cm x12cm x0.1cm . Surrounding skin intact . Left back mid skin fold - pink tissues 100% , scant serosang drainage,2cm x5cm x0.1cm Surrounding skin intact . Bilateral buttock -MASD -secondary to diarrhea - rash noted, no open sores, blanchable skin, fragile skin . Surrounding skin intact . Respiratory -Normal effort, no respiratory distress, no cyanosis and vent Abdomen - soft, nontender, and nondistended Lower Extremities - edema bilaterally lymphedema :dry thickened skin both feet Left anterior thigh - pink tissues 100% , scant serosang drainage, 4cm x4cm x0.1cm . Surrounding skin intact . Left post thigh proximal --pink tissues 100% , scant serosang drainage, 2cm x4cm x0.1cm . Surrounding skin intact . Left post thigh distal -pink tissues 100% , scant serosang drainage, 1cm x1cm x0.1cm . Surrounding skin intact . Right post knee stage 3 PI POA - pink tissues 100% , scant serosang drainage, 1cm x12cm x0.1cm . Surrounding skin intact . . Right lyons - VLU fat level - pink tissues 100% , scant serosang drainage, 20cm x8cm x0.1cm . Surrounding skin intact . LABS CBC: Lab Results Component Value Date WBC 19.7 (H) 08/01/2023 HGB 8.8 (L) 08/01/2023 HCT 26.6 (L) 08/01/2023 MCV 103.5 (H) 08/01/2023 PLT 95 (L) 08/01/2023 BMP: Lab Results Component Value Date NA 140 08/01/2023 K 4.1 08/01/2023 CL 105 08/01/2023 CO2 26 08/01/2023 PHOS 3.0 08/01/2023 BUN 63 (H) 08/01/2023 CREATININE 1.61 (H) 08/01/2023 PT/INR: Lab Results Component Value Date PROTIME 11.8 08/01/2023 INR 1.1 08/01/2023 Prealbumin: No results found for: PREALBUMIN Albumin:No components found for: LABALBU Sed Rate:No results found for: SEDRATE Micro: No components found for: "BC" Assessment/Plan: Right lyons - VLU fat level - xeroform and dry dressing daily . BERLIN wrap on in AM off at HS. Offload heels while in bed. Mid lower abdomen fold - stage 3 PI POA - cleanse with hibiclens and apply xeroform and dry dressing daily . Left anterior thigh - stage 3 PI POA - cleanse with hibiclens and apply xeroform and dry dressing daily . Left post thigh proximal -stage 3 PI POA - cleanse with hibiclens and apply xeroform and dry dressing daily . Left post thigh distal -stage 3 PI POA - cleanse with hibiclens and apply xeroform and dry dressing daily . Right post knee stage 3 PI POA - cleanse with hibiclens and apply xeroform and dry dressing daily . Left back mid skin fold -stage 3 PI POA - cleanse with hibiclens and apply xeroform and dry dressing daily . Bilateral buttock -MASD -secondary to diarrhea - cleanse with ph balanced wipes apply zinc barrier q shift and PRN. Turn q2 hrs -provide incont. Care. Left neck fold -fungal - cleanse with hibiclens apply nystatin cream the powder abd pad and place in fold to prevent skin on skin contact. BID and prn. All skin folds apply antifungal powder daily and as needed TAP system to assist with turning . Nutritional support Wound Care to follow Please follow up at [facility] wound care center after hospital discharge. Thank you for the consult! Please secure chat me for questions. I spent approximately 45 minutes face to face in the diagnosis, treatment, evaluation and education of wound and ostomy care with this wound care visit. I personally obtained the arias and critical portions of the history and physical exam. I reviewed the labs, imaging studies, and electronic medical record. I reviewed the chart documentation and discussed the patient with treatment team members. I have edited the note to reflect my clinical findings and my assessment and plan. Please note, the time of this note does not reflect the time I saw this patient today, but the time of this documentaton. Portions of this note including HPI, ROS, impression/plan, and examination may have been copied forward from admission to today as to provide important historical information essential in contributing to medical decision making. Documentation has been reviewed and edited as necessary to support clinical decision making for today's visit and to reflect my own independent evaluation of this patient. Decision making for today's visit and to reflect my own independent evaluation of this patient. Associated Order(s): IP CONSULT TO DIETITIAN Discussed during rounds. Unable to extubate. MD ordered dietitian consult for tube feed ordering and management. Initiate tube feed Vital High Protein with goal of 45 ml/hr to provide 1080 kcals, 94g protein, and 902 ml free water. Provides ~19 kcals, 1.65g protein per kg IBW 57kg. RD will follow. Pharmacy Note Vancomycin Consult Non-MH TEACHER Salazar Coyle is a 72 y.o. year old female ordered vancomycin for Sepsis; consult from Dr. Petersen to manage therapy. Patient Active Problem List Diagnosis Date Noted Edema 04/11/2021 Severe sepsis ([facility]) 07/30/2023 Radicular pain in right arm 01/08/2023 Ureteropelvic junction calculus 08/07/2022 WHITLEY (acute kidney injury) ([facility]) 08/07/2022 Chronic venous stasis 08/07/2022 Inflammatory reaction due to indwelling ureteral stent, initial encounter ([facility]) 08/02/2022 Septic shock ([facility]) 06/09/2022 Hypertension 04/15/2021 Hyperlipemia 04/15/2021 Cognitive decline 04/15/2021 Morbid obesity with BMI of 60.0-69.9, adult ([facility]) 04/15/2021 Chronic indwelling Jose catheter 04/15/2021 Foot ulcer ([facility]) 04/13/2021 Wounds, multiple 04/11/2021 PAF (paroxysmal atrial fibrillation) ([facility]) 04/11/2021 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 ([facility]) 04/11/2021 Hyperglycemia 04/11/2021 CKD (chronic kidney disease) 04/11/2021 Asymptomatic bacteriuria 04/11/2021 Anemia 04/11/2021 Bladder spasm 03/08/2021 Type 2 diabetes mellitus with hyperglycemia ([facility]) 03/08/2021 Degenerative disc disease, cervical 03/08/2021 Chronic pain 03/08/2021 Osteoarthrosis 03/08/2021 Recurrent UTI 03/08/2021 Cerebrovascular accident ([facility]) 03/08/2021 Ertapenem CREATININE Date Value Ref Range Status 07/31/2023 1.79 (H) 0.52 - 1.04 mg/dL Final 04/14/2021 1.32 (H) 0.52 - 1.25 mg/dL Final UREA NITROGEN Date Value Ref Range Status 07/31/2023 71 (H) 7 - 17 mg/dL Final Auto WBC Date Value Ref Range Status 07/31/2023 16.2 (H) 3.6 - 10.7 10*3/uL Final Ht Readings from Last 1 Encounters: 07/31/23 1.651 m (5' 5") Wt Readings from Last 1 Encounters: 07/31/23 (!) 159 kg (350 lb) Plan: Will initiate vancomycin 1500 mg IV every 24 hours based on predicted AUC of 567 mg/L.hr . Goal AUC is 400-600 mg/L.hr. Random level will be scheduled for 07/31 at 0500. Thank you for the consult. Will continue to follow. Associated Order(s): IP CONSULT TO DIETITIAN Nutrition Assessment Type and Reason for Visit: Initial, Consult, Wound (ICU admit) Nutrition Recommendations/Plan: Remains intubated following s/p cystoscopy with ureteral stent placement on 07/31/23. Weaning sedation, tracking RDN in room at time of assessment. +Levo, fentanyl, +insulin GTT Recommend ADAT following extubation and as recommended by LASER PRINTING OPERATOR. Diet at facility: Regular [id number]-uggmp-bunr, dn-zecorddmylzn-woeksy diet with thin liquids Should alternative nutrition route be indicated, would recommend: Vital High Protein @45 mL/hr Proposed regimen to provide: 1080 kcal, 94 g protein, 902 mL free fluid (19 kcal, 1.6 g protein/kg IBW) Obtain updated actual bed scale weight as able for most accurate anthropometric data RDN to continue to monitor weekly: fluid accumulation, weight, skin integrity, trends in lab values, improvement in clinical status, discharge planning. 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 Most recently admitted to [facility] 01/08-01/11/23 with neck pain and weakness. +UTI. Imaging on admit indicative of DDD with moderate central canal stenosis through c-spine, +severe stenosis C4-C5. Not a candidate for surgical interventions. Refused to work with PT and OT and was discharged to SNF in stable con. She currently presents to [facility] from SNF with AMS and concerns for UTI. Imaging without acute process. Noted to have jose draining urine with sediment, and foul odor in ED. Underwent jose exchange in ED. -FBOT, pending urine culture. Urology consulted and underwent s/p cystoscopy with ureteral stent placement on 07/31/23. Post procedure admitted to ICU under sepsis protocol, intubated and sedated. Remains intubated and weaning sedation at time of assessment. Per MD, hopeful to extubate in the next 24 hours, if not will begin EN. +norepi, fentanyl, insulin GTT, +Sodium Bicarb running. Patient opened eyes to verbal and tactile stimuli from RDN during NFPE (permission given by RN). Post visit, alerted RN to patient tracking, coughing around trach, and noted tremors in upper extremities. Estimated Daily Nutrient Needs: Energy Requirements Based On: Kcal/kg Weight Used for Energy Requirements: [place] Weight for Energy Calculation (kg): 57 kg Total Energy Requirements (kcals/day): 1738-3579 (22-25 kcal/kg IBW) Weight Used for Protein Requirements: [place] Weight in Kg Used for Protein Requirements: 57 kg Estimated Total Protein (g/day): 86-114 (1.5-2.0 g protein/kg IBW) Estimated Daily Total Fluid (ml/day): per MD Nutrition Related Findings: +2 BLE edema noted. Remains intubated in ICU, POD#0 s/p cystoscopy with ureteral stent placement. Meds and labs reviewed. Wound Type: Multiple, Wound Consult Pending Current Nutrition Therapies: NPO diet without enteral medications Current Oral Intake Average Meal Intake: NPO Average Supplements Intake: NPO Anthropometric Measures: Height: 165.1 cm (5' 5") Current Body Weight: 159 kg (350 lb 8.5 oz) Weight Source: Other (Comment) (Estimated 07/30/23; unable to obtain bedscale weight) Admission Body Weight: 159 kg (350 lb 8.5 oz) (estimated 07/29) Usual Body Weight: 140 kg (308 lb 8 oz) (per [facility] Records: 303# April 2023; 299# may 2023; 311# June 2023; 308.5# 07/05/23) % Weight Change (Calculated): 13.6 [place] Body Weight (lbs) (Calculated): 125 lbs [place] Body Weight (Kg) (Calculated): 57 kg % [place] Body Weight (Calculated): 280.4 % BMI (kg/m2) (Calculated): 58.3 Weight Adjustment For: No Adjustment BMI Categories: Obese Class 3 (BMI 40.0 or greater) Nutrition Diagnosis: Increased nutrient needs related to acute injury/trauma as evidenced by (+UTI and POD#0 s/p cystoscopy with ureteral stent placement) Altered nutrition-related lab values related to cardiac dysfunction, endocrine dysfuntion as evidenced by lab values Nutrition Interventions: Nutrition Education/Counseling: Education not indicated Coordination of Nutrition Care: Continue to monitor while inpatient Plan of Care discussed with: Dr Del Real, RN Goals: Goals: Initiate PO diet, within 2 days, Initiate nutrition support Nutrition Monitoring and Evaluation: Behavioral-Environmental Outcomes: None Identified Food/Nutrient Intake Outcomes: Diet Advancement/Tolerance Physical Signs/Symptoms Outcomes: Biochemical Data, GI Status, Weight, Hemodynamic Status, Fluid Status or Edema, Nutrition Focused Physical Findings, Skin, Nausea or Vomiting Discharge Planning: Too soon to determine Angie Ramirez RDN, LDN, Contact: *[phone] Associated Order(s): IP CONSULT TO INFECTIOUS DISEASES Images from the original note were not included. [facility] - Infectious Diseases Attending Consult Note Reason for Consult: Septic shock requiring pressor. History of Present Illness: 72 y/o female was admitted from an [facility] with altered mental status, lethargic and foul smelling; in hospital, she responded to name and noxious stimuli, her chronic jose noted with purulent material draining from catheter; she had fever (T 100.5 F), was hypotensive (BP 91/35 to 81/40); labs showed Lactic acidosis 5.6, leukocytosis WBC 13.6, bandemia 23, UA WBC 51-100, she was treated with sepsis bundle including NS 3000 ml, vancomycin and cefepime. Her CT abdomen and pelvis showed left UPJ calculus with mild to moderate upstream hydronephrosis, underwent Cystoscopy, ureteral stent placement, early AM on 07/31/23. She was seen, found her intubated, on vent, sedated but arousable, on levophed, jose catheter in place with decreased urine output, lymphedema and stasis skin changes on both lower legs, she appeared ill. She has h/o DM2, morbid obesity, PHOEBE, chronic Jose due to neurogenic bladder, anxiety, chronic pain, hospital admission in May of 2022 with ESBL E. Coli bacteremia. She was examined; notes, labs, and imaging were reviewed and treatment plan was discussed. Past Medical History: Past Medical History: Diagnosis Date A-fib (CMS/HCC) (HCC) Anemia Diabetes (HCC) Lymphedema Obesity Past Surgical History: History reviewed. No pertinent surgical history. Current Medications: Current Facility-Administered Medications Medication Dose Route Frequency Provider Last Rate Last Admin acetaminophen (Ofirmev) IVPB 1,000 mg 1,000 mg IntraVENous q8h Reyna Calderón APRN - PATRICK 400 mL/hr at 07/31/23 1210 1,000 mg at 07/31/23 1210 [Held by provider] acetaminophen (Tylenol) tablet 650 mg 650 mg Oral q6h PRN Reyna Calderón APRN - PATRICK Or [Held by provider] acetaminophen (Tylenol) suppository 650 mg 650 mg Rectal q6h PRN Reyna Calderón APRN - PATRICK [Held by provider] apixaban (Eliquis) tablet 5 mg 5 mg Oral BID Reyna Calderón APRN - PATRICK ascorbic acid (Vitamin C) tablet 250 mg 250 mg Oral Daily Bashir Vásquez MD 250 mg at 07/31/23 0939 atorvastatin (Lipitor) tablet 20 mg 20 mg Oral Nightly Reyna Calderón APRN - PATRIKC baclofen (Lioresal) tablet 5 mg 5 mg Oral TID Bashir Vásquez MD 5 mg at 07/31/23 0940 bisacodyl (Dulcolax) suppository 10 mg 10 mg Rectal BID ZINA Doan CNP calcium gluconate 4,000 mg in sodium chloride 0.9 % 100 mL IVPB 4,000 mg IntraVENous Once ZINA Doan CNP dextrose 5 % infusion 100 mL/hr IntraVENous PRN Reyna Calderón APRN - PATRICK dextrose 50 % solution 12.5 g 12.5 g IntraVENous PRN Reyna Berrodin-Amy, METHOD CONSULTANT - MANAGER PRESENTATION Diclofenac Sodium (Voltaren) 1 % gel 4 g 4 g Topical BID Bashir Vásquez MD 4 g at 07/31/23 0938 donepezil (Aricept) tablet 10 mg 10 mg Oral Nightly Reyna Calderón APRN - PATRICK famotidine (Pepcid) 20 mg in sodium chloride (PF) 0.9 % 10 mL injection 20 mg IntraVENous BID Reyna Calderón, METHOD CONSULTANT - PATRICK 20 mg at 07/31/23 0938 fentaNYL (Sublimaze) 1000 mcg in sodium chloride 0.9 % 100 mL 10 mcg/mL infusion 25-200 mcg/hr IntraVENous Continuous Maya Del Real, DO 7.5 mL/hr at 07/31/23 0730 75 mcg/hr at 07/31/23 0730 [Held by provider] gabapentin (Neurontin) capsule 200 mg 200 mg Oral TID Bashir Vásquez MD glucagon (human recombinant) injection 1 mg 1 mg IntraMUSCular PRN Reyna Calderón, METHOD CONSULTANT - PATRICK glucose oral gel 15 g 15 g Oral PRN Reyna Vazquez-Amy, METHOD CONSULTANT - MANAGER PRESENTATION heparin 25,000 units in dextrose 5% 250mL infusion (premix) 5-30 Units/kg/hr IntraVENous Continuous Reyna Vazquez-Amy, METHOD CONSULTANT - MANAGER PRESENTATION Stopped at 07/31/23 0527 heparin injection 2,000 Units 2,000 Units IntraVENous PRN Reyna Vazquez-Amy, METHOD CONSULTANT - MANAGER PRESENTATION heparin injection 4,000 Units 4,000 Units IntraVENous PRN Reyna Vazquez-Amy, METHOD CONSULTANT - MANAGER PRESENTATION Insulin Lispro (Humalog) injection 3 Units 3 Units SubCUTAneous TID WC Bashir Vásquez MD 3 Units at 07/31/23 1207 insulin regular 100 units in 100 mL NS (Myxredlin) infusion (premix) 1-50 Units/hr IntraVENous Continuous Reyna Calderón METHOD CONSULTANT - MANAGER PRESENTATION 13 mL/hr at 07/31/23 1208 13 Units/hr at 07/31/23 1208 ipratropium-albuterol (Duo-Neb) 0.5-2.5 mg/3 mL nebulizer solution 3 mL 3 mL Nebulization TID Reyna Calderón METHOD CONSULTANT - MANAGER PRESENTATION 3 mL at 07/31/23 0900 labetalol (Normodyne,Trandate) injection 10 mg 10 mg IntraVENous q4h PRN Reyna Brownodin-Amy, METHOD CONSULTANT - MANAGER PRESENTATION lidocaine (Uro-Jet) 2 % gel Topical Once Reyna Vazquez-Amy, METHOD CONSULTANT - MANAGER PRESENTATION lisinopril tablet 10 mg 10 mg Oral Daily Bashir Vásquez MD 10 mg at 07/31/23 0939 meropenem (Merrem) 2,000 mg in sodium chloride 0.9 % 100 mL IVPB 2,000 mg IntraVENous q8h Reyna Vazquez-Amy, METHOD CONSULTANT - MANAGER PRESENTATION Stopped at 07/31/23 0111 miconazole (Micotin) 2 % powder Topical BID Reyna Brownodin-Amy, METHOD CONSULTANT - MANAGER PRESENTATION Given at 07/31/23 0938 norepinephrine (Levophed) infusion 16 mg in 0.9 % sodium chloride 250 mL (Okf-Douica-Zltre) (premix) 1-100 mcg/min IntraVENous Continuous Maya Del Real DO 14.06 mL/hr at 07/31/23 1200 15 mcg/min at 07/31/23 1200 nystatin (Mycostatin) cream Topical BID Bashir Vásquez MD Given at 07/31/23 0938 ondansetron ODT (Zofran-ODT) disintegrating tablet 4 mg 4 mg Oral q8h PRN Reyna Brownodin-Amy, METHOD CONSULTANT - MANAGER PRESENTATION Or ondansetron (Zofran) injection 4 mg 4 mg IntraVENous q6h PRN Reyna Brownodin-Amy, METHOD CONSULTANT - MANAGER PRESENTATION oxymetazoline (Afrin) 0.05 % nasal spray 2 spray 2 spray Each Nostril Once Reyna Vazquez-Amy, METHOD CONSULTANT - MANAGER PRESENTATION Petrolatum ointment Topical BID Reyna Vazquez-Amy, METHOD CONSULTANT - MANAGER PRESENTATION Given at 07/31/23 0938 Phenylephrine HCl (Pressors) 1 MG/10ML injection - Pyxis ADS Override Pull polyethylene glycol (PEG) 3350 (Miralax) packet 17 g 17 g Oral Daily PRN Reyna Berrodin-Amy, METHOD CONSULTANT - MANAGER PRESENTATION polyethylene glycol (PEG) 3350 (Miralax) packet 17 g 17 g Oral Daily Reyna Berrodin-Amy, METHOD CONSULTANT - MANAGER PRESENTATION 17 g at 07/31/23 0941 senna-docusate sodium (Senokot-S) 8.6-50 MG tablet 2 tablet 2 tablet Oral BID Reyna Brownodin-Amy, METHOD CONSULTANT - MANAGER PRESENTATION 2 tablet at 07/31/23 0940 sertraline (Zoloft) tablet 50 mg 50 mg Oral Daily Reyna Berrodin-Amy, METHOD CONSULTANT - MANAGER PRESENTATION 50 mg at 07/31/23 0940 sodium bicarbonate 150 mEq in dextrose 5 % 1,000 mL infusion 75 mL/hr IntraVENous Continuous J Maria Fernanda Rogers MD 75 mL/hr at 07/31/23 0553 75 mL/hr at 07/31/23 0553 sodium chloride 0.9 % infusion 5-250 mL/hr IntraVENous PRN Reyna Berrodin-Amy, METHOD CONSULTANT - MANAGER PRESENTATION sodium chloride 0.9% (NS) flush 10 mL 10 mL IntraVENous 2 times per day Reyna Berrodin-Amy, METHOD CONSULTANT - MANAGER PRESENTATION 10 mL at 07/31/23 0941 sodium chloride 0.9% (NS) flush 10 mL 10 mL IntraVENous PRN Reyna Berrodin-Amy, METHOD CONSULTANT - MANAGER PRESENTATION sodium chloride 0.9% (NS) flush 5-40 mL 5-40 mL IntraCATHeter q8h Reyna Berrodin-Amy, METHOD CONSULTANT - MANAGER PRESENTATION 10 mL at 07/31/23 0943 sodium chloride 0.9% (NS) flush 5-40 mL 5-40 mL IntraVENous PRN Reyna Berrodin-Amy, METHOD CONSULTANT - MANAGER PRESENTATION sodium chloride 0.9% (NS) flush 5-40 mL 5-40 mL IntraCATHeter q8h Maya Vijay-Irene, DO 10 mL at 07/31/23 1045 sodium chloride 0.9% (NS) flush 5-40 mL 5-40 mL IntraVENous PRN Maya Vijay-Irene, DO stomahesive in petrolatum (ET Mix) Topical q8h Reyna Berrodin-Amy, METHOD CONSULTANT - MANAGER PRESENTATION 1 Application at 07/30/23 2341 vasopressin (Vasostrict) 20 units in dextrose 5% 100 mL infusion 0.01-0.03 Units/min IntraVENous Continuous Maya Vijay-Irene, DO Allergies: Allergies Allergen Reactions Ertapenem Patient tolerated July 2022 Social History: Social History Socioeconomic History Marital status: Spouse name: Not on file Number of children: Not on file Years of education: Not on file Highest education level: Not on file Occupational History Not on file Tobacco Use Smoking status: Never Smokeless tobacco: Never Vaping Use Vaping Use: Never used Substance and Sexual Activity Alcohol use: Never Drug use: Never Sexual activity: Not Currently Other Topics Concern Not on file Social History Narrative Not on file Social Determinants of Health Financial Resource Strain: Not on file Food Insecurity: Not on file Transportation Needs: Not on file Physical Activity: Not on file Stress: Not on file Social Connections: Not on file Intimate Partner Violence: Not At Risk (01/08/2023) Humiliation, Afraid, Rape, and Kick questionnaire Fear of Current or Ex-Partner: No Emotionally Abused: No Physically Abused: No Sexually Abused: No Housing Stability: Not on file Family History: No family history on file. Review of Systems: Review of Systems Constitutional: Positive for activity change, fatigue and fever. Genitourinary: Positive for difficulty urinating. Psychiatric/Behavioral: Positive for confusion. Pt intubated and sedated, did not answer questions. Vitals: Patient Vitals for the past 24 hrs: BP Temp Temp src Pulse Resp SpO2 Height Weight 07/31/23 1043 -- -- -- -- -- -- 1.651 m (5' 5") -- 07/31/23 1016 (!) 137/43 -- -- 85 17 100 % -- -- 07/31/23 1002 (!) 138/39 -- -- 81 16 100 % -- -- 07/31/23 0948 (!) 132/36 -- -- 84 12 100 % -- -- 07/31/23 0932 (!) 105/40 -- -- 84 16 100 % -- -- 07/31/23 0917 (!) 97/41 -- -- 88 16 100 % -- -- 07/31/23 0909 -- -- -- 89 16 100 % -- -- 07/31/23 0905 -- -- -- -- -- -- 1.651 m (5' 5") (!) 159 kg (350 lb) 07/31/23 0901 (!) 102/36 -- -- 86 16 100 % -- -- 07/31/23 0847 (!) 98/43 -- -- 88 16 100 % -- -- 07/31/23 0832 (!) 85/53 -- -- 86 17 100 % -- -- 07/31/23 0817 (!) 99/35 36.8 C (98.2 F) Oral 87 20 100 % -- -- 07/31/23 0813 (!) 89/50 -- -- 85 16 100 % -- -- 07/31/23 0801 (!) /38 -- -- 89 16 100 % -- -- 07/31/23 0747 (!) 82/41 -- -- 85 23 100 % -- -- 07/31/23 0732 106/52 -- -- 90 21 100 % -- -- 07/31/23 0727 (!) 120/49 -- -- 90 18 100 % -- -- 07/31/23 0541 (!) 81/40 -- -- 76 17 100 % -- -- 07/31/23 0441 (!) 112/44 -- -- 114 (!) 27 100 % -- -- 07/31/239 -- -- -- 108 21 100 % -- -- 07/31/23 0436 112/56 -- -- 111 18 100 % -- -- 07/31/23 0435 112/56 -- -- 115 22 100 % -- -- 07/31/23 0434 (!) 105/42 -- -- 108 18 100 % -- -- 07/31/23 0429 (!) 114/48 -- -- 98 22 100 % -- -- 07/31/23 0427 (!) 113/44 -- -- 100 19 100 % -- -- 07/31/23 0425 (!) 100/37 -- -- -- -- -- -- -- 07/31/23 0309 -- -- -- 116 -- 100 % -- -- 07/31/23 0302 143/68 (!) 38.1 C (100.5 F) Oral 116 17 100 % -- -- 07/31/23 0102 114/51 -- -- 98 16 100 % -- -- 07/31/23 0035 -- -- -- 97 14 100 % -- -- 07/31/23 0034 122/71 -- -- 97 19 -- -- -- 07/30/23 2349 -- -- -- 101 -- 100 % -- -- 07/30/23 2302 133/69 -- -- 103 16 99 % -- -- 07/30/237 -- -- -- 101 19 (!) 86 % -- -- 07/30/232226 (!) 146/45 37.8 C (100.1 F) Oral 99 17 97 % -- -- 07/30/23 220 (!) 166/44 -- -- 100 19 96 % -- -- 07/30/23 213 (!) 153/60 -- -- 98 17 97 % -- -- 07/30/23 210 (!) 170/56 -- -- 97 19 98 % -- -- 07/30/232000 (!) 180/139 -- -- 104 20 99 % -- -- 07/30/23 1940 -- 37.1 C (98.8 F) Rectal -- -- -- -- -- 07/30/23 1937 (!) 166/107 -- -- (!) 112 26 98 % -- -- 07/30/23 1833 (!) 168/58 -- -- 84 12 97 % -- -- 07/30/23 1710 139/52 -- -- 79 12 95 % -- -- 07/30/23 1632 (!) 96/41 -- -- 71 13 100 % -- -- 07/30/23 1612 -- -- -- -- -- -- -- (!) 159 kg (350 lb) 07/30/23 1602 139/70 -- -- 83 13 98 % -- -- 07/30/23 1522 (!) 103/49 -- -- 74 14 96 % -- -- 07/30/23 1517 (!) 91/35 -- -- 75 14 96 % -- -- 07/30/23 1439 (!) 104/42 -- -- 78 16 -- -- -- 07/30/23 1307 (!) 126/96 36.6 C (97.9 F) Oral 54 17 96 % -- -- Physical Exam: Physical Exam Vitals and nursing note reviewed. Constitutional: Appearance: She is obese. She is ill-appearing. Comments: Intubated and sedated, HENT: Head: Normocephalic and atraumatic. Nose: Nose normal. Mouth/Throat: Mouth: Mucous membranes are moist. Pharynx: Oropharynx is clear. Comments: Orally intubated. Eyes: Extraocular Movements: Extraocular movements intact. Pupils: Pupils are equal, round, and reactive to light. Cardiovascular: Rate and Rhythm: Normal rate and regular rhythm. Pulses: Normal pulses. Heart sounds: Normal heart sounds. Pulmonary: Effort: Pulmonary effort is normal. Breath sounds: Rhonchi present. Abdominal: General: Abdomen is flat. Bowel sounds are normal. Palpations: Abdomen is soft. Genitourinary: Comments: Jose catheter in place with decreased output. Musculoskeletal: General: Swelling present. Cervical back: Normal range of motion and neck supple. Right lower leg: Edema present. Left lower leg: Edema present. Skin: General: Skin is warm and dry. Comments: -Chronic lymphedema and stasis wounds on to bilateral lower extremities. -Bilateral feet with dry flaking skin -all folds with fungal like erythema. Neurological: Comments: Sedated but arousable. Psychiatric: Comments: Sedated, did not answer questions. Labs: Recent Labs 07/30/23 1337 07/30/23 1830 07/30/23 2248 07/31/23 0508 07/31/23 1148 NA 134* 135 136 139 137 K 5.8* 4.7 5.2* 4.3 4.4 CL 102 112* 107 106 103 CO2 20* 17* 16* 17* 23 BUN 75* 62* 66* 66* 71* CREATININE 1.78* 1.43* 1.74* 1.64* 1.79* GLUCOSE 326* 286* 343* 289* 257* CALCIUM 8.4 6.3* 7.7* 7.8* 8.3* PROT 6.6 -- 5.9* 5.9* -- BILITOT 0.8 -- 0.6 0.8 -- ALKPHOS 84 -- 87 71 -- AST 62* -- 37 30 -- ALT 31 -- 56* 25 -- PROCAL -- 28.53* -- -- -- Recent Labs 07/30/23 1337 07/30/23 2248 07/31/23 0508 WBC 13.9* 20.1* 16.2* HGB 11.3* 10.7* 9.5* HCT 35.2 33.0* 29.4* PLT 183 136* 100* LYMPHOPCT 5* -- 6* MONOPCT 1* -- 4* Micro: No results for input(s): "COVID19" in the last 72 hours. Collected Updated Procedure Result Status 07/30/2023 2153 07/30/2023 2316 SARS-CoV-2 by PCR [[id number]] Swab from Nasopharynx Final result Component Value SARS-CoV-2 Not Detected 07/30/2023 1652 07/30/2023 1706 Urine culture [[id number]] Urine, Clean Catch In process Component Value No component results 07/30/2023 1607 07/30/2023 1619 Occult blood x 1, stool [[id number]] Stool from Per Rectum Final result Component Value Fecal occult blood Negative 07/30/2023 1337 07/30/2023 1601 Blood culture Site #1 - Suspected Infection [[id number]] Blood, Venous Preliminary result Component Value Blood Culture Blood culture incubation started P 07/30/2023 1337 07/30/2023 1601 Blood culture Site #2 - Suspected Infection [[id number]] Blood, Venous Preliminary result Component Value Blood Culture Blood culture incubation started P Lines: RIJ Radiography/Echo/Other: Procedure Component Value Units Date/Time FL GUIDANCE OR USE ONLY - NON RESULTABLE [[id number]] Resulted: 07/31/23 0635 Order Status: Completed Updated: 07/31/23634 Narrative: There is no interpretation needed for this exam. XR chest 1 view [[id number]] Collected: 07/31/23 050 Order Status: Completed Updated: 07/31/23505 Narrative: Patient Name: SALAZAR COYLE : 1950 Exam Date/Time: 07/31/2023 04:56 Procedure: XR CHEST 1 VIEW Ordering Provider: DEL REAL CHELSEA Reason For Exam: verify ETT placement EXAMINATION: XR chest AP. EXAM DATE & TIME: 07/31/2023 4:56 AM EDT INDICATION: verify ETT placement ADDITIONAL INFORMATION: 72-year-old female presents for follow-up after intubation COMPARISON: Chest x-ray dated 07/31/2023 TECHNIQUE: Frontal view of the chest was obtained. FINDINGS: Lines/support devices: An endotracheal tube is present with its distal tip approximately 1.9 cm above the candy. Unchanged right internal jugular approach central venous catheter, terminating in the region of the cavoatrial junction. An NG/OG tube is present with its distal tip coursing subdiaphragmatically and beyond the [id number]. Cardiac leads project over the chest, somewhat limiting evaluation. Cardiomediastinal silhouette: The heart is slightly enlarged. Lungs/pleura: A small left pleural effusion is seen. Right pleural spaces are clear. No evidence of pneumothorax. Osseous structures: Degenerative changes of the spine and shoulders are seen. No acute osseous abnormality is demonstrated. Other findings: None. Impression: 1. Small left pleural effusion. Underlying consolidation is not excluded. 2. Lines and support devices as above. Report Dictated on Electronically Signed By: Catarino Sue MD Electronically Signed Date/Time: 07/31/2023 5:05 AM EDT XR chest 1 view [[id number]] Collected: 07/31/23244 Order Status: Completed Updated: 07/31/23251 Narrative: [facility] 1950 [id number] Exam Date/Time: 07/31/2023 01:43 Procedure: XR CHEST 1 VIEW Ordering Provider: DEL REAL CHELSEA Reason For Exam: PROCEDURES PORTABLE CHEST CLINICAL INDICATION: PROCEDURES TECHNIQUE: Portable AP COMPARISON: 07/30/2023 FINDINGS: Right IJ central line tip projects over the SVC. No focal consolidation or pulmonary edema. No pleural effusions or pneumothorax. The heart demonstrates normal size. Calcification of the thoracic aorta is noted. Degenerative change of the thoracic spine is noted. Impression: No focal consolidation or pulmonary edema. Report Dictated on Electronically Signed By: Bashir Barnes MD Electronically Signed Date/Time: 07/31/2023 2:[address] abdomen pelvis wo IV contrast [[id number]] Collected: 07/31/23223 Order Status: Completed Updated: 07/31/23235 Narrative: [facility] Name: [facility]AZ[facility] COYLE : 1950 [id number] Exam Date/Time: 07/31/2023 00:27 Procedure: CT ABDOMEN PELVIS WO IV CONTRAST Ordering Provider: CALDERÓN SHANNON Reason For Exam: UTI, recurrent/complicated (Female) EXAMINATION: CT of the abdomen and pelvis without contrast. EXAM DATE & TIME: 07/31/2023 12:27 AM EDT INDICATION: UTI, recurrent/complicated (Female) ADDITIONAL INFORMATION: 72-year-old female with a provided history of UTI presents for evaluation COMPARISON: CT abdomen pelvis dated 06/10/2022 LIMITATIONS: Evaluation of the vasculature as well as the solid and hollow viscera is limited due to the lack of intravenous and oral contrast. Additional limitations are present secondary to portions of the patient outside the [id number] and associated beam hardening artifact. TECHNIQUE: Contiguous multiplanar 3 mm images were obtained from the levels of the lung bases through the pelvis without contrast. Images were reformatted in coronal and sagittal projections using the raw CT data and were interpreted in conjunction with the axial images to render the findings listed below. Dose reduction was employed with automated exposure control. FINDINGS: Included images of the lower thorax: There is bibasilar scarring/atelectasis. No focal lung consolidation or pleural effusion. Stable 3 mm right lower lobe pulmonary nodule (series 4, image 7). Previously identified 1.3 cm nodule is not included on the current examination. Hepatobiliary: Unremarkable liver without biliary dilation evident. Cholelithiasis is seen. Spleen: Unremarkable. Pancreas: There is fatty atrophy of the pancreas. Adrenal glands: Unremarkable. Kidneys, ureters and bladder: There is an 8 mm left UPJ calculus with mild to moderate upstream hydronephrosis (HU = 327). Additional coarse, nonobstructing left renal calculi are noted. No evidence of right-sided hydronephrosis or nephrolithiasis. A Jose catheter is present within the urinary bladder, decompressing it and limiting evaluation. Abdominal and pelvic vasculature: Atherosclerotic vascular calcifications are present in the abdominal aorta and its proximal major branches. Gastrointestinal: No evidence of obstruction. No pericecal inflammation to suggest acute appendicitis. Peritoneum, retroperitoneum and mesentery: No free fluid or free air. Inflammatory changes surround the left kidney. Lymph nodes: No abdominal or pelvic lymphadenopathy is evident. Solid pelvic viscera: The uterus appears surgically absent. Visualized musculoskeletal structures: No acute fracture or destructive osseous lesion is identified. Multilevel spondylosis is present. The bones are diffusely osteopenic. Impression: 1. Study limited as above. Allowing for this, there is a left UPJ calculus with mild to moderate upstream hydronephrosis. 2. Stable 3 mm right lower lobe pulmonary nodule. Recommendations for follow-up as below. Previously noted 1.3 cm pulmonary nodule is not included on the current examination. 3. Additional chronic findings as above. Updated Fleischner Society Guidelines for Management of Small Pulmonary Nodules Detected on CT (2017) SOLITARY NODULE: LOW RISK PATIENT < 6 mm - No follow-up 6 - 8 mm - 6 - 12 month follow-up, then consider 18 - 24 months > 8 mm - PET/CT, biopsy, or 3 month follow-up SOLITARY NODULE: HIGH RISK PATIENT < 6 mm - Optional 6 - 12 months follow-up (suspicious morphology or upper lobe) 6 - 8 mm - 6 - 12 month follow-up, then 18 - 24 months > 8 mm - PET/CT, biopsy, or 3 month follow-up MULTIPLE NODULES: LOW RISK PATIENT (Use most suspicious) All < 6 mm - No follow-up Any > 6 mm - 3 - 6 month follow-up, then 18 - 24 months MULTIPLE NODULES: HIGH RISK PATIENT (Use most suspicious) All < 6 mm - No follow-up Any > 6 mm - 3 - 6 month follow-up, then 18 - 24 months Report Dictated on Electronically Signed By: Catarino Sue MD Electronically Signed Date/Time: 07/31/2023 2:[address] head wo IV contrast [[id number]] Collected: 07/30/23 1449 Order Status: Completed Updated: 07/30/231451 Narrative: Patient Name: SALAZAR COYLE : 1950 Exam Date/Time: 07/30/2023 14:19 Procedure: CT HEAD WO IV CONTRAST Ordering Provider: LEMON JAY Reason For Exam: Mental status change, unknown cause Indication: Mental status change Comparison date: 06/09/2022 FINDINGS: Dose reduction was employed with automated exposure control.3 mm unenhanced imaging of the brain performed. Images viewed in multiple orthogonal planes. Acute findings: No convincing acute ischemia or infarct, mass effect or midline shift, or hemorrhage. Bony structures:Unremarkable as seen. Orbits within normal limits, limited lack of contrast. Review of the paranasal sinuses shows stable right maxillary fluid-filled partially calcified structure etiology uncertain.. Impression: No acute brain process identified. Report Dictated on Electronically Signed By: Carlos Martinez MD Electronically Signed Date/Time: 07/30/2023 2:51 PM EDT XR chest 1 view [[id number]] Collected: 07/30/23 1403 Order Status: Completed Updated: 07/30/231419 Narrative: [facility]AZAR COYLE : 1950 [id number] Exam Date/Time: 07/30/2023 14:01 Procedure: XR CHEST 1 VIEW Ordering Provider: LEMON JAY Reason For Exam: ALTERED MENTAL STATUS EXAM TYPE: RADIOLOGIC EXAMINATION, CHEST, SINGLE VIEW FRONTAL (CXR SINGLE VIEW) EXAM DATE AND TIME: 07/30/2023 2:01 PM EDT INDICATION: Altered mental status COMPARISON: 06/10/2022 TECHNIQUE: A single frontal view of the thorax was obtained and reviewed. Special views: None. Impression: 1. Lines/Tubes/Devices/Hardware: Leads noted. Please confirm position and function of any catheters or attempted catheters clinically. 2. Lungs: No convincing acute process.. Limited due to portable technique. Consider follow-up with PA and lateral chest for persistent symptoms. 3. Pleura: No significant effusion. No significant pneumothorax. 4. Heart and mediastinum: Limited due to technique. 5. Upper abdomen: No acute process seen. 6. Thorax:No acute bony process Report Dictated on Electronically Signed By: Carlos Martinez MD Electronically Signed Date/Time: 07/30/2023 2:03 PM EDT 07/31/23 2D ECHO: Interpretation Summary Left Ventricle: Left ventricle size is normal. Mildly increased wall thickness. Normal left ventricular systolic function. EF by 2D Simpsons Biplane is 63%. Normal wall motion. Right Ventricle: Right ventricle size is normal. Normal systolic function. Aortic Valve: Trileaflet. No cusp thickening. Mildly calcified cusps. Mild annular calcification. No regurgitation. Valve appears to open well velocities suggest Mild stenosis of the aortic valve. AV mean gradient is 9 mmHg. AV area by continuity VTI is 2.3 cm2. Left Atrium: Left atrium is dilated. Echo Findings Left Ventricle Left ventricle size is normal. Mildly increased wall thickness. Normal left ventricular systolic function. EF by 2D Simpsons Biplane is 63%. Normal wall motion. Right Ventricle Right ventricle size is normal. Normal systolic function. Left Atrium Left atrium is dilated. Interatrial Septum No interatrial shunt visualized on color Doppler. Right Atrium Right atrium size is normal. Aortic Valve Trileaflet. No cusp thickening. Mildly calcified cusps. Mild annular calcification. No regurgitation. Valve appears to open well velocities suggest Mild stenosis of the aortic valve. AV mean gradient is 9 mmHg. AV area by continuity VTI is 2.3 cm2. Mitral Valve Not well visualized. Moderately calcified leaflets. Moderate annular calcification. Trace regurgitation. No stenosis noted. Tricuspid Valve Valve structure is normal. Mild (1+) regurgitation. Pulmonic Valve The pulmonic valve was not well visualized. Trace regurgitation. Pulmonary Artery Pulmonary artery was not well visualized. Aorta Normal sized sinuses of Valsalva and ascending aorta. IVC/Hepatic Veins IVC diameter is normal and decreases greater than 50% during inspiration; therefore the estimated right atrial pressure is normal (~3 mmHg). Pericardium No pericardial effusion. Study Details Image quality: fair. Heart rate: 86 bpm. The underlying ECG rhythm was sinus rhythm. Technical qualifiers: Technically difficult study due to patient's body habitus and procedure performed with the patient in a supine position. vented. Ultrasound enhancement agent was given to enhance imaging. Antimicrobials,Start/End Dates: Cefepime 07/29 Andres 07/29- Vanco 07/29 Impression: Septic shock (fever, hypotension, lactic acidosis). Acute resp failure, on vent. Pyuria, r/o UTI/ pyelonephritis. Left UPJ calculus with mild to moderate upstream hydronephrosis, s/p cystoscopy and ureteral stent placement, on 07/31/23. H/o ESBL E. Coli bacteremia in May of 2022. H/o neurogenic bladder requiring chronic use of jose catheter. Morbid obesity disorder. Plan: Pt very sick due to circulatory shock, intubated and on high dose IV pressor. She has persistent lactic acidosis (4.0) and worsening renal function (Cr 1.79). s/p ureteral stent placement and has chr jose catheter, however, urine output decreased. Await cx results. Continue empiric meropenem, add vancomycin, pharmacy to dose. High level complexity medical decision making. Will follow. Thank you. Total time 75 minutes on this day of encounter includes counseling, coordinating plan of care, record and documentation review before and after visit including documentation and time not explicitly included on EMR time stamp for accounting for open encounter. Urology Inpatient Consultation 07/30/2023 HISTORY OF PRESENT ILLNESS: The patient is a 72 y.o. female with past medical history as listed below to include NGB w/ chronic jose, LULL/stent exchange w/ Dr. Bejarano 07/2022, and admitted 05/2022 w/ ESBL E. Coli bacteremia who is here for stone sepsis. The patient initially presented with AMS. She was admitted to the ICU who reached out to IR for intervention. However, due to body habitus patient is poor candidate for IR. Has since had increasing leukocytosis and lactic acid as listed below. On evaluation, they are AF and HDS. Labs and imaging are outlined below. Urology consulted for evaluation and management. ED/Hospital workup Cr 1.74 WBC 20.1 HGB 10.7 pH - 7.3 Lactic acid 6.8 Trops 0.867 Glucose 343 UA 11-25 RBC, 51-100 WBC, nitrite -, LE 500 Ucx (p) CT - LEFT 8mm UPJ stone w/ moderate hydro 16Fr jose Eliquis PAST MEDICAL HISTORY: Medical History Past Medical History: Diagnosis Date A-fib (CMS/HCC) (HCC) Anemia Diabetes (HCC) Lymphedema Obesity PAST SURGICAL HISTORY: Surgical History History reviewed. No pertinent surgical history. ALLERGIES: Allergies Allergen Reactions Ertapenem Patient tolerated July 2022 HOME MEDICATIONS: Prescriptions Prior to Admission Medications Prior to Admission Medication Sig Dispense Refill Last Dose acetaminophen (Tylenol) 325 MG tablet Take 325 mg by mouth 3 times daily. apixaban (Eliquis) 5 MG tablet Take 5 mg by mouth 2 times daily. ascorbic acid (Vitamin C) 250 MG tablet Take 250 mg by mouth daily. atorvastatin (Lipitor) 20 MG tablet Take 20 mg by mouth daily. baclofen (Lioresal) 5 MG tablet Take 1 tablet by mouth 3 times daily. Calcium Carbonate-Vitamin D (Oyster Shell Calcium/D) 500-5 MG-MCG tablet Take 1 tablet by mouth daily. Diclofenac Sodium (Voltaren) 1 % gel Apply 4 g topically 2 times daily. 50 g 1 donepezil (Aricept) 10 MG tablet Take 10 mg by mouth Nightly. furosemide (Lasix) 40 MG tablet Take 40 mg by mouth in the morning and 40 mg in the evening. gabapentin (Neurontin) 100 MG capsule Take 2 capsules (200 mg) by mouth 3 times daily. 180 capsule 2 insulin glargine (Lantus) 100 UNIT/ML injection Inject 10 Units under the skin Nightly. 10 mL 12 Insulin Lispro (Humalog) 100 UNIT/ML solution injection Inject 3 Units under the skin in the morning and 3 Units at noon and 3 Units in the evening. Inject with meals. 10 mL 2 lisinopril 10 MG tablet Take 10 mg by mouth daily. nystatin (Mycostatin) [id number] UNIT/GM powder senna-docusate (Helena-Colace) 8.6-50 MG tablet Take 100 tablets by mouth Every 24 hours. sertraline (Zoloft) 50 MG tablet Take 50 mg by mouth daily. FAMILY HISTORY: Family History No family history on file. Social History: Social History Tobacco Use Smoking Status Never Smokeless Tobacco Never Social History Substance and Sexual Activity Alcohol Use Never ROS: Constitutional: negative for chills and fevers HEENT: no blurry vision or eye redness Respiratory: negative for hemoptysis and shortness of breath Cardiovascular: negative for dyspnea and syncope Gastrointestinal: negative for jaundice, nausea and vomiting Genitourinary: see HPI Hematologic/lymphatic: negative for bleeding Integumentary: no new bruises or lesions Musculoskeletal:negative for muscle weakness Neurological: negative for coordination problems and seizures All other systems negative PHYSICAL EXAM: VITALS: Vitals Vitals: 07/31/23 0035 07/31/23 0102 07/31/23 0302 07/31/23 0309 BP: 114/51 143/68 BP Location: Left arm Patient Position: Lying Pulse: 97 98 116 116 Resp: 14 16 17 Temp: (!) 38.1 C (100.5 F) TempSrc: Oral SpO2: 100% 100% 100% 100% Weight: Physical Exam DATA: LABS: BMP: Lab Results Component Value Date NA 136 07/30/2023 K 5.2 (H) 07/30/2023 CL 107 07/30/2023 CO2 16 (L) 07/30/2023 BUN 66 (H) 07/30/2023 CREATININE 1.74 (H) 07/30/2023 CALCIUM 7.7 (L) 07/30/2023 GLUCOSE 343 (H) 07/30/2023 CBC: Lab Results Component Value Date WBC 20.1 (H) 07/30/2023 HGB 10.7 (L) 07/30/2023 HCT 33.0 (L) 07/30/2023 MCV 107.1 (H) 07/30/2023 PLT 136 (L) 07/30/2023 RADIOLOGY: CT abdomen pelvis wo IV contrast Final Result 1. Study limited as above. Allowing for this, there is a left UPJ calculus with mild to moderate upstream hydronephrosis. 2. Stable 3 mm right lower lobe pulmonary nodule. Recommendations for follow-up as below. Previously noted 1.3 cm pulmonary nodule is not included on the current examination. 3. Additional chronic findings as above. Updated Fleischner Society Guidelines for Management of Small Pulmonary Nodules Detected on CT (2017) SOLITARY NODULE: LOW RISK PATIENT < 6 mm - No follow-up 6 - 8 mm - 6 - 12 month follow-up, then consider 18 - 24 months > 8 mm - PET/CT, biopsy, or 3 month follow-up SOLITARY NODULE: HIGH RISK PATIENT < 6 mm - Optional 6 - 12 months follow-up (suspicious morphology or upper lobe) 6 - 8 mm - 6 - 12 month follow-up, then 18 - 24 months > 8 mm - PET/CT, biopsy, or 3 month follow-up MULTIPLE NODULES: LOW RISK PATIENT (Use most suspicious) All < 6 mm - No follow-up Any > 6 mm - 3 - 6 month follow-up, then 18 - 24 months MULTIPLE NODULES: HIGH RISK PATIENT (Use most suspicious) All < 6 mm - No follow-up Any > 6 mm - 3 - 6 month follow-up, then 18 - 24 months Report Dictated on Electronically Signed By: Catarino Sue MD Electronically Signed Date/Time: 07/31/2023 2:[address] head wo IV contrast Final Result No acute brain process identified. Report Dictated on Electronically Signed By: Carlos Martinez MD Electronically Signed Date/Time: 07/30/2023 2:51 PM EDT XR chest 1 view Final Result 1. Lines/Tubes/Devices/Hardware: Leads noted. Please confirm position and function of any catheters or attempted catheters clinically. 2. Lungs: No convincing acute process.. Limited due to portable technique. Consider follow-up with PA and lateral chest for persistent symptoms. 3. Pleura: No significant effusion. No significant pneumothorax. 4. Heart and mediastinum: Limited due to technique. 5. Upper abdomen: No acute process seen. 6. Thorax:No acute bony process Report Dictated on Electronically Signed By: Carlos Martinez MD Electronically Signed Date/Time: 07/30/2023 2:03 PM EDT IMPRESSION: 72 y.o. female with LEFT 8mm UPJ stone w/ moderate hydronephrosis PLAN: - labs and imaging reviewed - leukocytosis to 20.1 - Cr 1.74 - urinalysis with signs of infection - check Urine culture - imaging with 8mm LEFT UPJ stone w/ moderate hydro - no acute urologic surgical intervention at this time - agree with admit to ICU - IR unable to offer any decompression due to habitus - plan for OR 07/30 w/ urology - NPO - consent obtained - IV Abx - Cefepime/Andres - place jose for maximal drainage of urinary system - please maintain until 24hrs afebrile - management per primary team - Flomax - remainder of care per primary team - plan of care d/w Dr. Vásquez Thank you for allowing me to participate in the care of your patient Carlos Hill MD PGY-1 Urology 07/31/23 3:37 AM Patient was seen and evaluated. The history and physical has been reviewed. The pertinent findings from the history of present illness, past medical history, family history, social history, review of systems, and physical exam have been noted and confirmed that are unchanged. Discussed with the urology resident. Plan- Needs cystoscopy, left ureteral stent placement. Discussed cystoscopy, left ureteral stent placement procedure. Discussed Risks, expectations and potential options. Risks include, but are not limited to Bleeding, infection, failure of treatment,need for additional procedures, [place], stroke, embolus, DVT and . Patient understands. Informed consent obtained. documented in this encounter [facility] 07-31-2023 Procedure note Associated Ord er(s): Central Line Insertion Post-Procedure Diagnose(s): Severe sepsis (HCC) Central Line Insertion Date/Time: 07/31/2023 1:25 AM Performed by: ZINA Doan CNP Authorized by: ZINA Doan CNP Consent: Consent was not able to be obtained because the procedure was emergent or the patient was unable to give consent and a surrogate decision maker was not available. Timeout: Completed immediately prior to the start of the procedure which included verification of the correct patient, correct site and agreement on the procedure to be done. Indication: Lack of adequate PIV access Anesthetic: Local anesthetic used: other (see comment) Local anesthetic comment: lidocaine Procedure Details: Preparation: skin prepped with chlorhexidine Skin prep agent dried: skin prep agent completely dried prior to procedure Sterile barriers: all five maximum sterile barriers used - cap, mask, sterile gown, sterile gloves, and large sterile sheet Hand hygiene: hand hygiene performed prior to central venous catheter insertion Sterile technique: Sterile technique maintained throughout procedure. Central Line Type: central venous catheter Orientation: right Location details: internal jugular Patient position: Trendelenburg Catheter type: triple lumen Pre-procedure: landmarks identified Number of attempts: 1 Ultrasound guidance: yes Post-Procedure: Post-procedure: line sutured, dressing applied and antimicrobial dressing applied Description/Findings: dark, non-pulsatile blood return obtained from all lumens Estimated blood loss: < 5 mL Complications: arrhythmia Follow-up chest x-ray: ordered Assistants & Supervision: I personally performed the procedure documented as signed by this procedure note Steno Pool Supervisor(s): N/A No supervision required documented in this encounter [facility] 07-30-2023 Emergency department Note Report called to OTOLARYNGOLOGY PHYSICIAN. Kami Oquendo RN 07/30/232205 Dr Lemon notified face to face about concern for changes in pts VS and condition. Pt now tachycardic and hypertensive. Shivering upon checking on her. Warm blankets provided. Slight mottling noted to R arm. Dr Lemon bedside to assess pt. Will obtain rectal temp Kami Oquendo RN 07/30/231939 Pt arrived with chronic jose in place. Jose was draining urine with sediment and odor. Jose dirty. Unsure last time it was changed. Jose removed and new jose placed with sterile technique. Pt also transferred to bariatric hospital bed and skin assessment performed. Pictures uploaded in media tab. Pt cleansed with purple wipes. Waffle mattress applied to bed. Dark BM noted. Dr Lemon notified and order obtained for occult stool. Pt moaning during cleansing and turns. Kami Oquendo RN 07/30/23 1603 Kami Oquendo RN 07/30/23 2216 EMERGENCY DEPARTMENT ENCOUNTER Pt Name: Salazar Coyle Birthdate 1950 Date of evaluation: 07/30/2023 ED Provider: Cesario Lemon MD CHIEF COMPLAINT Chief Complaint Patient presents with Altered Mental Status HISTORY OF PRESENT ILLNESS I wore appropriate PPE for the entirety of this encounter. HPI Salazar Coyle is a 72 y.o. person who presents to the emergency department with concern for altered mental status. Has a history of A-fib anemia diabetes lymphedema and obesity. Unsure of the duration of altered mentation although patient is able to respond to her name although cannot provide much else in terms of history. They think that she may have a UTI as she does have a chronic Jose catheter that has purulent material coming out of it. Patient does have wounds scattered throughout her extremities as well Nursing Notes were reviewed. Limitations to history: Mentation Outside historians: EMS REVIEW OF SYSTEMS Review of Systems Unable to perform ROS: Mental status change PAST MEDICAL HISTORY Past Medical History: Diagnosis Date A-fib (CMS/HCC) (HCC) Anemia Diabetes (HCC) Lymphedema Obesity SURGICAL HISTORY History reviewed. No pertinent surgical history. CURRENT MEDICATIONS Current Discharge Medication List CONTINUE these medications which have NOT CHANGED Details acetaminophen (Tylenol) 325 MG tablet Take 325 mg by mouth 3 times daily. apixaban (Eliquis) 5 MG tablet Take 5 mg by mouth 2 times daily. ascorbic acid (Vitamin C) 250 MG tablet Take 250 mg by mouth daily. atorvastatin (Lipitor) 20 MG tablet Take 20 mg by mouth daily. baclofen (Lioresal) 5 MG tablet Take 1 tablet by mouth 3 times daily. Calcium Carbonate-Vitamin D (Oyster Shell Calcium/D) 500-5 MG-MCG tablet Take 1 tablet by mouth daily. Diclofenac Sodium (Voltaren) 1 % gel Apply 4 g topically 2 times daily. Qty: 50 g, Refills: 1 donepezil (Aricept) 10 MG tablet Take 10 mg by mouth Nightly. furosemide (Lasix) 40 MG tablet Take 40 mg by mouth in the morning and 40 mg in the evening. gabapentin (Neurontin) 100 MG capsule Take 2 capsules (200 mg) by mouth 3 times daily. Qty: 180 capsule, Refills: 2 insulin glargine (Lantus) 100 UNIT/ML injection Inject 10 Units under the skin Nightly. Qty: 10 mL, Refills: 12 Insulin Lispro (Humalog) 100 UNIT/ML solution injection Inject 3 Units under the skin in the morning and 3 Units at noon and 3 Units in the evening. Inject with meals. Qty: 10 mL, Refills: 2 lisinopril 10 MG tablet Take 10 mg by mouth daily. nystatin (Mycostatin) 720391 UNIT/GM powder senna-docusate ([place]-Colace) 8.6-50 MG tablet Take 100 tablets by mouth Every 24 hours. sertraline (Zoloft) 50 MG tablet Take 50 mg by mouth daily. ALLERGIES Ertapenem FAMILY HISTORY No family history on file. SOCIAL HISTORY Social History Socioeconomic History Marital status: Tobacco Use Smoking status: Never Smokeless tobacco: Never Vaping Use Vaping Use: Never used Substance and Sexual Activity Alcohol use: Never Drug use: Never Sexual activity: Not Currently Social Determinants of Health Intimate Partner Violence: Not At Risk (01/08/2023) Humiliation, Afraid, Rape, and Kick questionnaire Fear of Current or Ex-Partner: No Emotionally Abused: No Physically Abused: No Sexually Abused: No SCREENINGS [place] Coma Scale Best Eye Response: To verbal stimuli Best Verbal Response: None Best Motor Response: Follows commands Varinder Coma Scale Score: 10 PHYSICAL EXAM ED Triage Vitals [07/30/23 1307] Temp Heart Rate Resp BP 36.6 C (97.9 F) 54 17 (!) 126/96 SpO2 Temp Source Heart Rate Source Patient Position 96 % Oral Monitor -- BP Location FiO2 (%) Left arm -- Physical Exam Vitals and nursing note reviewed. Constitutional: General: She is not in acute distress. Appearance: She is well-developed. She is ill-appearing. HENT: Head: Normocephalic and atraumatic. Eyes: Conjunctiva/sclera: Conjunctivae normal. Cardiovascular: Rate and Rhythm: Normal rate and regular rhythm. Heart sounds: No murmur heard. Pulmonary: Effort: Pulmonary effort is normal. No respiratory distress. Breath sounds: Normal breath sounds. Abdominal: Palpations: Abdomen is soft. Tenderness: There is no abdominal tenderness. Comments: Obese abdomen although no significant tenderness with palpation Musculoskeletal: General: Swelling present. Cervical back: Neck supple. Comments: Bilateral lower extremity swelling/lymphadenopathy. There are some scattered wounds that appear to be healing. Skin: General: Skin is warm and dry. Capillary Refill: Capillary refill takes less than 2 seconds. Neurological: Mental Status: She is alert. Comments: Patient does respond to her name and opens her eyes although otherwise does not give any other verbal responses other than grunts. Does not follow commands verbally although does respond to painful stimuli Psychiatric: Mood and Affect: Mood normal. DIAGNOSTIC RESULTS RADIOLOGY (Per Emergency Physician): Interpretation per the Radiologist below, if available at the time of this note: XR chest 1 view Final Result No significant change when compared with the previous study. Report Dictated on Electronically Signed By: Paige Browne MD Electronically Signed Date/Time: 08/02/2023 12:43 PM EDT XR chest 1 view Final Result Impression: Limited study Cardiomegaly and calcified thoracic aorta. Report Dictated on Electronically Signed By: Austen Thurston MD Electronically Signed Date/Time: 08/01/2023 7:24 AM EDT [place] GUIDANCE OR USE ONLY - NON RESULTABLE Final Result XR chest 1 view Final Result 1. Small left pleural effusion. Underlying consolidation is not excluded. 2. Lines and support devices as above. Report Dictated on Electronically Signed By: Catarino Sue MD Electronically Signed Date/Time: 07/31/2023 5:05 AM EDT XR chest 1 view Final Result No focal consolidation or pulmonary edema. Report Dictated on Electronically Signed By: Bashir Barnes MD Electronically Signed Date/Time: 07/31/2023 2:[address] abdomen pelvis wo IV contrast Final Result 1. Study limited as above. Allowing for this, there is a left UPJ calculus with mild to moderate upstream hydronephrosis. 2. Stable 3 mm right lower lobe pulmonary nodule. Recommendations for follow-up as below. Previously noted 1.3 cm pulmonary nodule is not included on the current examination. 3. Additional chronic findings as above. Updated Fleischner Society Guidelines for Management of Small Pulmonary Nodules Detected on CT (2017) SOLITARY NODULE: LOW RISK PATIENT < 6 mm - No follow-up 6 - 8 mm - 6 - 12 month follow-up, then consider 18 - 24 months > 8 mm - PET/CT, biopsy, or 3 month follow-up SOLITARY NODULE: HIGH RISK PATIENT < 6 mm - Optional 6 - 12 months follow-up (suspicious morphology or upper lobe) 6 - 8 mm - 6 - 12 month follow-up, then 18 - 24 months > 8 mm - PET/CT, biopsy, or 3 month follow-up MULTIPLE NODULES: LOW RISK PATIENT (Use most suspicious) All < 6 mm - No follow-up Any > 6 mm - 3 - 6 month follow-up, then 18 - 24 months MULTIPLE NODULES: HIGH RISK PATIENT (Use most suspicious) All < 6 mm - No follow-up Any > 6 mm - 3 - 6 month follow-up, then 18 - 24 months Report Dictated on Electronically Signed By: Catarino Sue MD Electronically Signed Date/Time: 07/31/2023 2:[address] head wo IV contrast Final Result No acute brain process identified. Report Dictated on Electronically Signed By: Carlos Martinez MD Electronically Signed Date/Time: 07/30/2023 2:51 PM EDT XR chest 1 view Final Result 1. Lines/Tubes/Devices/Hardware: Leads noted. Please confirm position and function of any catheters or attempted catheters clinically. 2. Lungs: No convincing acute process.. Limited due to portable technique. Consider follow-up with PA and lateral chest for persistent symptoms. 3. Pleura: No significant effusion. No significant pneumothorax. 4. Heart and mediastinum: Limited due to technique. 5. Upper abdomen: No acute process seen. 6. Thorax:No acute bony process Report Dictated on Electronically Signed By: Carlos Martinez MD Electronically Signed Date/Time: 07/30/2023 2:03 PM EDT EKG Interpretation: LABS: Labs Reviewed BLOOD CULTURE - Abnormal Result Value Blood Culture Escherichia coli (*) Narrative: Blood Collection Site: Right Upper Arm URINE CULTURE - Abnormal Urine Culture Normal urogenital gaby present Urine Culture 50,000-90,000 CFU/mL Escherichia coli (*) PNEUMONIA PCR PANEL - Abnormal Staphylococcus aureus Not Detected Streptococcus agalactiae Not Detected Streptococcus pneumoniae Not Detected Streptococcus pyogenes Not Detected Haemophilus influenzae Not Detected Moraxella catarrhalis Not Detected Acinetobacter baumannii complex Not Detected Enterobacter cloacae complex Not Detected Escherichia coli Not Detected Klebsiella (Enterobacter) aerogenes Not Detected Klebsiella oxytoca Not Detected Klebsiella pneumoniae Not Detected Proteus spp Not Detected Pseudomonas aeruginosa Not Detected Serratia marcescens Not Detected Chlamydia pneumoniae Not Detected Legionella pneumophila Not Detected Mycoplasma pneumoniae Not Detected Adenovirus Not Detected Coronavirus Detected (*) Human Metapneumovirus Not Detected Human Rhinovirus/Enterovirus Detected (*) Influenza A Not Detected Influenza B Not Detected Parainfluenza virus Not Detected Respiratory Syncytial Virus Not Detected Narrative: A positive Coronavirus (not SARS-CoV-2) result on the [employer] Pneumonia PCR Panel should be taken in the context of other clinical data as increased false positive detection has been noted by the rivet driver. Consider collecting a nasopharyngeal sample for the Respiratory Pathogens Panel by PCR if clinically indicated. Methodology: Multiplex PCR This panel does not test for SARS-CoV-2 (Covid-19). The following antimicrobial resistance gene is reported if the appropriate organism is detected: mecA. The following antimicrobial resistance genes are reported if detected and the appropriate organisms are detected: CTX-M, IMP, KPC, NDM, OXA-48-like, and VIM. BLOOD CULTURE IDENTIFICATION - ANAEROBIC - Abnormal Escherichia coli Detected (*) CTX-M (ESBL gene) Detected (*) Narrative: Methodology: Multiplex PCR The [employer] BCID panel can detect the following organisms: E. faecalis, E. faecium, Staphylococcus spp., S. aureus, S. epidermidis, S. lugdunensis, Streptococcus spp., S. pyogenes (Group A), S. agalactiae (Group B), S. pneumoniae, A. baumannii complex, B. fragilis, H. influenzae, N. meningitidis, P. aeruginosa, S. maltophilia, Enterobacterales, E. cloacae complex, E. coli, K. aerogenes, K. oxytoca, K. pneumoniae, Proteus spp., Salmonella spp., S. marcescens, C. albicans, C. auris, C. glabrata, C. krusei, C. parapsilosis, C. tropicalis, and C. neoformans/gattii. The following antimicrobial resistance genes are reported if appropriate organisms are detected: mecA/C and Donald/B. The following antimicrobial resistance genes are reported if detected and the appropriate organisms are detected: CTX-M, IMP, KPC, NDM, OXA-48-like, VIM, and mcr-1. CBC WITH AUTO DIFFERENTIAL - Abnormal Auto WBC 13.9 (*) RBC 3.31 (*) Hemoglobin 11.3 (*) Hematocrit 35.2 MCV 106.3 (*) MCH 34.1 (*) MCHC 32.1 RDW 14.4 Platelets 183 MPV 11.0 COMPREHENSIVE METABOLIC PANEL - Abnormal SODIUM 134 (*) POTASSIUM 5.8 (*) CHLORIDE 102 CARBON DIOXIDE 20 (*) ANION GAP 12 UREA NITROGEN 75 (*) CREATININE 1.78 (*) GLUCOSE 326 (*) CALCIUM 8.4 AST (SGOT) 62 (*) ALT 31 ALKALINE PHOSPHATASE 84 ALBUMIN 3.5 BILIRUBIN, TOTAL 0.8 TOTAL PROTEIN 6.6 eGFR 29.7 (*) TROPONIN, WITH SERIAL REFLEX - Abnormal TROPONIN I 0.253 (*) Narrative: Patients with high levels of Biotin oral intake (ie >5 mg/day) may have falsely decreased Troponin levels. COMPLETE URINALYSIS - Abnormal Color, Urine Yellow Clarity, Urine Cloudy (*) pH, Urine 5.0 Leukocytes, Urine 500 (*) Nitrite, Urine Negative Protein, Urine 30 (*) Glucose, Urine 70 Bilirubin, Urine Negative Ketones, Urine Negative Urobilinogen, Urine Normal Blood, Urine 0.5 (*) RBC, Urine 11-25 (*) WBC, Urine 51-100 (*) Squamous Epithelial, Urine 6-10 (*) Non-Squamous Epithalial Cells, Urine 0-2 (*) Bacteria, Urine Few (*) Mucus, Urine Few Amorphous Crystals, Urine Few (*) Hyaline Casts, Urine 11-25 (*) WBC Clumps, Urine Few (*) SPECIFIC GRAVITY OF URINE (NUMERIC) 1.018 MANUAL DIFFERENTIAL - Abnormal Adjusted WBC 13.9 (*) Neutrophils % 69 Bands % 23 (*) Lymphocytes % 5 (*) Monocytes % 1 (*) Myelocytes % 2 (*) Absolute Neutrophil Count 12.8 (*) Segs Absolute 12.8 (*) Bands Absolute 3.2 (*) Lymphocytes Absolute 0.7 (*) Monocytes Absolute 0.1 Myelocytes Absolute 0.3 (*) Poikilocytes Slight (*) Macrocytes Slight (*) Polychromasia Slight (*) Ovalocytes Slight (*) Dacryocytes Slight (*) WBC Morphology Normal PLT Morphology Normal Total Counted 100 Neutrophils Manual 69 Lymphocytes Manual 5 Monocytes Manual 1 Bands Manual 23 Myelocytes Manual 2 Differential Method Manual differential performed TROPONIN I - Abnormal TROPONIN I 0.282 (*) Narrative: Patients with high levels of Biotin oral intake (ie >5 mg/day) may have falsely decreased Troponin levels. LACTIC ACID WITH REFLEX - Abnormal LACTIC ACID 5.6 (*) LACTIC ACID WITH REFLEX - Abnormal LACTIC ACID 4.0 (*) TROPONIN I - Abnormal TROPONIN I 0.570 (*) Narrative: Patients with high levels of Biotin oral intake (ie >5 mg/day) may have falsely decreased Troponin levels. BASIC METABOLIC PANEL - Abnormal SODIUM 135 POTASSIUM 4.7 CHLORIDE 112 (*) CARBON DIOXIDE 17 (*) UREA NITROGEN 62 (*) CREATININE 1.43 (*) GLUCOSE 286 (*) CALCIUM 6.3 (*) ANION GAP 6 eGFR 38.6 (*) LACTIC ACID WITH REFLEX - Abnormal LACTIC ACID 6.7 (*) PROCALCITONIN TEST - Abnormal PROCALCITONIN 28.53 (*) Narrative: PCT <0.50 = Low risk of severe sepsis and/or septic shock. PCT >2.00 = High risk of severe sepsis and/or septic shock. CBC WITH AUTO DIFFERENTIAL - Abnormal Auto WBC 16.2 (*) RBC 2.79 (*) Hemoglobin 9.5 (*) Hematocrit 29.4 (*) MCV 105.4 (*) MCH 34.1 (*) MCHC 32.3 RDW 14.6 Platelets 100 (*) MPV 11.3 HEMOGLOBIN A1C - Abnormal HEMOGLOBIN A1C 9.0 (*) ESTIMATED AVERAGE GLUCOSE 212 PROTIME & APTT - Abnormal PROTHROMBIN TIME 12.6 (*) INR 1.2 (*) APTT 59.6 (*) BASIC METABOLIC PANEL - Abnormal SODIUM 136 POTASSIUM 5.2 (*) CHLORIDE 107 CARBON DIOXIDE 16 (*) UREA NITROGEN 66 (*) CREATININE 1.74 (*) GLUCOSE 343 (*) CALCIUM 7.7 (*) ANION GAP 13 eGFR 30.5 (*) HEPATIC FUNCTION PANEL - Abnormal BILIRUBIN, TOTAL 0.6 BILIRUBIN, DIRECT 0.0 ALKALINE PHOSPHATASE 87 AST (SGOT) 37 ALT 56 (*) ALBUMIN 3.0 (*) TOTAL PROTEIN 5.9 (*) HEPATIC FUNCTION PANEL - Abnormal BILIRUBIN, TOTAL 0.8 BILIRUBIN, DIRECT 0.0 ALKALINE PHOSPHATASE 71 AST (SGOT) 30 ALT 25 ALBUMIN 3.3 (*) TOTAL PROTEIN 5.9 (*) TROPONIN, WITH SERIAL REFLEX - Abnormal TROPONIN I 0.772 (*) Narrative: Patients with high levels of Biotin oral intake (ie >5 mg/day) may have falsely decreased Troponin levels. LACTIC ACID WITH REFLEX - Abnormal LACTIC ACID 6.8 (*) CBC (HEMOGRAM) - Abnormal Auto WBC 20.1 (*) RBC 3.08 (*) Hemoglobin 10.7 (*) Hematocrit 33.0 (*) MCV 107.1 (*) MCH 34.7 (*) MCHC 32.4 RDW 14.7 Platelets 136 (*) MPV 11.3 TROPONIN I - Abnormal TROPONIN I 0.867 (*) Narrative: Patients with high levels of Biotin oral intake (ie >5 mg/day) may have falsely decreased Troponin levels. TROPONIN I - Abnormal TROPONIN I 0.881 (*) Narrative: Patients with high levels of Biotin oral intake (ie >5 mg/day) may have falsely decreased Troponin levels. APTT - Abnormal APTT 61.7 (*) Narrative: NOTE: The therapeutic time for Heparin anticoagulation, based on Xa activity inhibition, is an APTT of 46-80 seconds. APTT - Abnormal APTT 31.6 (*) Narrative: NOTE: The therapeutic time for Heparin anticoagulation, based on Xa activity inhibition, is an APTT of 46-80 seconds. APTT - Abnormal APTT 47.9 (*) Narrative: NOTE: The therapeutic time for Heparin anticoagulation, based on Xa activity inhibition, is an APTT of 46-80 seconds. BASIC METABOLIC PANEL - Abnormal SODIUM 139 POTASSIUM 4.3 CHLORIDE 106 CARBON DIOXIDE 17 (*) UREA NITROGEN 66 (*) CREATININE 1.64 (*) GLUCOSE 289 (*) CALCIUM 7.8 (*) ANION GAP 16 (*) eGFR 32.7 (*) CALCIUM, IONIZED - Abnormal Calcium, Ion 4.00 (*) PH, IONIZED CALCIUM 7.37 LACTIC ACID WITH REFLEX - Abnormal LACTIC ACID 4.0 (*) MANUAL DIFFERENTIAL - Abnormal Adjusted WBC 16.2 (*) Neutrophils % 85 (*) Bands % 1 (*) Lymphocytes % 6 (*) Monocytes % 4 (*) Metamyelocytes % 3 (*) Myelocytes % 1 (*) Absolute Neutrophil Count 13.9 (*) Segs Absolute 13.9 (*) Bands Absolute 0.2 (*) Lymphocytes Absolute 1.0 Monocytes Absolute 0.6 Metamyelocytes Absolute 0.5 (*) Myelocytes Absolute 0.2 (*) Anisocytosis Slight (*) Poikilocytes Slight (*) Macrocytes Slight (*) Polychromasia Rare (*) Basophilic Stippling Rare (*) Ovalocytes Slight (*) Schistocytes Rare (*) Dacryocytes Slight (*) Vacuolated Neutrophils Present (*) Dohle Bodies Present (*) PLT Morphology Normal Total Counted 100 Neutrophils Manual 85 Lymphocytes Manual 6 Monocytes Manual 4 Bands Manual 1 Metamyelocytes Manual 3 Myelocytes Manual 1 Differential Method Manual differential performed APTT - Abnormal APTT 36.4 (*) Narrative: NOTE: The therapeutic time for Heparin anticoagulation, based on Xa activity inhibition, is an APTT of 46-80 seconds. APTT - Abnormal APTT 35.7 (*) Narrative: NOTE: The therapeutic time for Heparin anticoagulation, based on Xa activity inhibition, is an APTT of 46-80 seconds. BASIC METABOLIC PANEL - Abnormal SODIUM 137 POTASSIUM 4.4 CHLORIDE 103 CARBON DIOXIDE 23 UREA NITROGEN 71 (*) CREATININE 1.79 (*) GLUCOSE 257 (*) CALCIUM 8.3 (*) ANION GAP 11 eGFR 29.5 (*) BASIC METABOLIC PANEL - Abnormal SODIUM 136 POTASSIUM 4.1 CHLORIDE 104 CARBON DIOXIDE 26 UREA NITROGEN 74 (*) CREATININE 1.82 (*) GLUCOSE 159 (*) CALCIUM 8.2 (*) ANION GAP 6 eGFR 28.9 (*) CALCIUM, IONIZED - Abnormal Calcium, Ion 4.20 (*) PH, IONIZED CALCIUM 7.39 LACTIC ACID WITH REFLEX - Abnormal LACTIC ACID 3.4 (*) CBC (HEMOGRAM) - Abnormal Auto WBC 26.5 (*) RBC 2.72 (*) Hemoglobin 9.4 (*) Hematocrit 28.2 (*) MCV 103.7 (*) MCH 34.6 (*) MCHC 33.3 RDW 15.0 Platelets 107 (*) MPV 11.5 TROPONIN, WITH SERIAL REFLEX - Abnormal TROPONIN I 0.567 (*) Narrative: Patients with high levels of Biotin oral intake (ie >5 mg/day) may have falsely decreased Troponin levels. LACTIC ACID WITH REFLEX - Abnormal LACTIC ACID 2.6 (*) PROCALCITONIN TEST - Abnormal PROCALCITONIN 50.38 (*) Narrative: PCT <0.50 = Low risk of severe sepsis and/or septic shock. PCT >2.00 = High risk of severe sepsis and/or septic shock. CBC WITH AUTO DIFFERENTIAL - Abnormal Auto WBC 19.7 (*) RBC 2.57 (*) Hemoglobin 8.8 (*) Hematocrit 26.6 (*) MCV 103.5 (*) MCH 34.2 (*) MCHC 33.1 RDW 14.8 Platelets 95 (*) MPV 11.8 IPF 5 PROTIME & APTT - Abnormal PROTHROMBIN TIME 11.8 INR 1.1 APTT 78.2 (*) CBC (HEMOGRAM) - Abnormal Auto WBC 21.5 (*) RBC 2.69 (*) Hemoglobin 9.0 (*) Hematocrit 27.8 (*) MCV 103.3 (*) MCH 33.5 MCHC 32.4 RDW 14.8 Platelets 96 (*) MPV 11.4 IPF 5 BASIC METABOLIC PANEL - Abnormal SODIUM 138 POTASSIUM 3.9 CHLORIDE 105 CARBON DIOXIDE 25 UREA NITROGEN 69 (*) CREATININE 1.76 (*) GLUCOSE 97 CALCIUM 9.0 ANION GAP 7 eGFR 30.1 (*) BASIC METABOLIC PANEL - Abnormal SODIUM 137 POTASSIUM 4.3 CHLORIDE 105 CARBON DIOXIDE 24 UREA NITROGEN 64 (*) CREATININE 1.62 (*) GLUCOSE 125 (*) CALCIUM 8.6 ANION GAP 8 eGFR 33.2 (*) CALCIUM, IONIZED - Abnormal Calcium, Ion 4.30 PH, IONIZED CALCIUM 7.47 (*) HEPATIC FUNCTION PANEL - Abnormal BILIRUBIN, TOTAL 0.7 BILIRUBIN, DIRECT 0.0 ALKALINE PHOSPHATASE 83 AST (SGOT) 26 ALT 21 ALBUMIN 3.0 (*) TOTAL PROTEIN 5.8 (*) LACTIC ACID WITH REFLEX - Abnormal LACTIC ACID 2.2 (*) HEPATIC FUNCTION PANEL - Abnormal BILIRUBIN, TOTAL 0.8 BILIRUBIN, DIRECT 0.0 ALKALINE PHOSPHATASE 81 AST (SGOT) 21 ALT 16 ALBUMIN 3.2 (*) TOTAL PROTEIN 5.8 (*) MANUAL DIFFERENTIAL (CELLAVISION) - Abnormal RBC Morphology abnormal Macrocytes Rare (*) Neutrophils % 86 (*) Bands % 4 (*) Lymphocytes % 8 (*) Monocytes % 1 (*) Eosinophils % 1 Absolute Neutrophil Count 17.7 (*) Bands Absolute 0.8 (*) Lymphocytes Absolute 1.6 Monocytes Absolute 0.2 Eosinophils Absolute 0.2 Neutrophils Manual 86 Lymphocytes Manual 8 Monocytes Manual 1 Eosinophils Manual 1 Basophils Manual Bands Manual 4 Metamyelocytes Manual Myelocytes Manual Promyelocytes Manual Blasts Manual Atypical Lymphocytes Manual Unclassified Cells, Manual APTT - Abnormal APTT 51.0 (*) Narrative: NOTE: The therapeutic time for Heparin anticoagulation, based on Xa activity inhibition, is an APTT of 46-80 seconds. BASIC METABOLIC PANEL - Abnormal SODIUM 140 POTASSIUM 4.1 CHLORIDE 105 CARBON DIOXIDE 26 UREA NITROGEN 63 (*) CREATININE 1.61 (*) GLUCOSE 117 (*) CALCIUM 8.4 ANION GAP 9 eGFR 33.5 (*) BASIC METABOLIC PANEL - Abnormal SODIUM 140 POTASSIUM 4.5 CHLORIDE 106 CARBON DIOXIDE 26 UREA NITROGEN 64 (*) CREATININE 1.49 (*) GLUCOSE 148 (*) CALCIUM 8.6 ANION GAP 8 eGFR 36.7 (*) CBC WITH AUTO DIFFERENTIAL - Abnormal Auto WBC 8.2 RBC 2.54 (*) Hemoglobin 8.7 (*) Hematocrit 26.4 (*) MCV 103.9 (*) MCH 34.3 (*) MCHC 33.0 RDW 14.6 Platelets 74 (*) MPV 11.9 IPF 7 PROTIME & APTT - Abnormal PROTHROMBIN TIME 11.4 INR 1.1 APTT 47.7 (*) BASIC METABOLIC PANEL - Abnormal SODIUM 139 POTASSIUM 4.2 CHLORIDE 106 CARBON DIOXIDE 25 UREA NITROGEN 63 (*) CREATININE 1.44 (*) GLUCOSE 163 (*) CALCIUM 8.4 ANION GAP 8 eGFR 38.2 (*) BASIC METABOLIC PANEL - Abnormal SODIUM 139 POTASSIUM 4.1 CHLORIDE 107 CARBON DIOXIDE 27 UREA NITROGEN 65 (*) CREATININE 1.42 (*) GLUCOSE 141 (*) CALCIUM 8.3 (*) ANION GAP 5 eGFR 38.9 (*) HEPATIC FUNCTION PANEL - Abnormal BILIRUBIN, TOTAL 0.6 BILIRUBIN, DIRECT 0.0 ALKALINE PHOSPHATASE 73 AST (SGOT) 23 ALT 17 ALBUMIN 3.0 (*) TOTAL PROTEIN 5.7 (*) MANUAL DIFFERENTIAL (CELLAVISION) - Abnormal RBC Morphology Normal Neutrophils % 88 (*) Bands % 4 (*) Lymphocytes % 7 (*) Monocytes % 1 (*) Absolute Neutrophil Count 7.5 Bands Absolute 0.3 (*) Lymphocytes Absolute 0.6 (*) Monocytes Absolute 0.1 Neutrophils Manual 87 Lymphocytes Manual 7 Monocytes Manual 1 Eosinophils Manual Basophils Manual Bands Manual 4 Metamyelocytes Manual Myelocytes Manual Promyelocytes Manual Blasts Manual Atypical Lymphocytes Manual Unclassified Cells, Manual APTT - Abnormal APTT 48.8 (*) Narrative: NOTE: The therapeutic time for Heparin anticoagulation, based on Xa activity inhibition, is an APTT of 46-80 seconds. POCT GLUCOSE METER UNSOLICITED RESULTS - Abnormal Glucose 357 (*) Narrative: Performed by: [facility], [address] [place] [id number] CLIA ID: [id number] POCT VENOUS BLOOD GAS UNSOLICITED RESULTS - Abnormal pH, Venous 7.265 (*) pCO2, Venous 48.8 pO2, Venous 35.4 HCO3, Venous 22.2 (*) Base Excess, Venous -5.0 (*) SO2, Venous 59.1 FIO2 Narrative: Performed by: [facility], [address] [place] [address] CLIA ID: [id number] POCT GLUCOSE METER UNSOLICITED RESULTS - Abnormal Glucose 339 (*) Narrative: Performed by: [facility], [address] [place] [address] CLIA ID: [id number] POCT VENOUS BLOOD GAS UNSOLICITED RESULTS - Abnormal pH, Venous 7.164 (*) pCO2, Venous 39.4 (*) pO2, Venous 39.7 HCO3, Venous 14.2 (*) Base Excess, Venous -13.5 (*) SO2, Venous 60.8 FIO2 Narrative: Performed by: [facility], [address] [place] [address] CLIA ID: [id number] POCT GLUCOSE METER UNSOLICITED RESULTS - Abnormal Glucose 379 (*) Narrative: Performed by: [facility], [address] [place] [address] CLIA ID: [id number] POCT GLUCOSE METER UNSOLICITED RESULTS - Abnormal Glucose 342 (*) Narrative: Performed by: [facility], [address] [place] [address] CLIA ID: [id number] POCT ARTERIAL BLOOD GAS UNSOLICITED RESULTS - Abnormal pH, Arterial 7.317 (*) pCO2, Arterial 37.4 pO2, Arterial 138.0 (*) HCO3, Arterial 19.1 (*) Base Excess, Arterial -6.3 (*) SO2, Arterial 98.9 FIO2 Narrative: Performed by: [facility], [address] [place] [address] CLIA ID: [id number] POCT GLUCOSE METER UNSOLICITED RESULTS - Abnormal Glucose 421 (*) Narrative: Performed by: [facility], [address] [place] [address] CLIA ID: [id number] POCT GLUCOSE METER UNSOLICITED RESULTS - Abnormal Glucose 413 (*) Narrative: Performed by: [facility], [address] [place] [address] CLIA ID: [id number] POCT GLUCOSE METER UNSOLICITED RESULTS - Abnormal Glucose 416 (*) Narrative: Performed by: [facility], [address], [facility] [address] CLIA ID: [id number] POCT GLUCOSE METER UNSOLICITED RESULTS - Abnormal Glucose 393 (*) Narrative: Performed by: [facility], [address], [facility] [address] CLIA ID: [id number] POCT GLUCOSE METER UNSOLICITED RESULTS - Abnormal Glucose 343 (*) Narrative: Performed by: [facility], [address], [facility] [address] CLIA ID: [id number] POCT GLUCOSE METER UNSOLICITED RESULTS - Abnormal Glucose 323 (*) Narrative: Performed by: [facility], [address], [facility] [address] CLIA ID: [id number] POCT GLUCOSE METER UNSOLICITED RESULTS - Abnormal Glucose 317 (*) Narrative: Performed by: [facility], [address], [facility] [address] CLIA ID: [id number] POCT GLUCOSE METER UNSOLICITED RESULTS - Abnormal Glucose 299 (*) Narrative: Performed by: [facility], [facility] [address] [place], [facility] [address] CLIA ID: [id number] POCT GLUCOSE METER UNSOLICITED RESULTS - Abnormal Glucose 267 (*) Narrative: Performed by: [facility], [address], [facility] [address] CLIA ID: [id number] POCT GLUCOSE METER UNSOLICITED RESULTS - Abnormal Glucose 291 (*) Narrative: Performed by: [facility], [address], [facility] [address] CLIA ID: [id number] POCT GLUCOSE METER UNSOLICITED RESULTS - Abnormal Glucose 312 (*) Narrative: Performed by: [facility], [address], [facility] [address] CLIA ID: [id number] POCT GLUCOSE METER UNSOLICITED RESULTS - Abnormal Glucose 295 (*) Narrative: Performed by: [facility], [address], [facility] [address] CLIA ID: [id number] POCT GLUCOSE METER UNSOLICITED RESULTS - Abnormal Glucose 262 (*) Narrative: Performed by: [facility], [address], [facility] [address] CLIA ID: [id number] POCT GLUCOSE METER UNSOLICITED RESULTS - Abnormal Glucose 278 (*) Narrative: Performed by: [facility], [address], [facility] [address] CLIA ID: [id number] POCT GLUCOSE METER UNSOLICITED RESULTS - Abnormal Glucose 231 (*) Narrative: Performed by: [facility], [address], [facility] [address] CLIA ID: [id number] POCT GLUCOSE METER UNSOLICITED RESULTS - Abnormal Glucose 214 (*) Narrative: Performed by: [facility], [address], [facility] [address] CLIA ID: [id number] POCT GLUCOSE METER UNSOLICITED RESULTS - Abnormal Glucose 202 (*) Narrative: Performed by: [facility], [address], [facility] [address] CLIA ID: [id number] POCT GLUCOSE METER UNSOLICITED RESULTS - Abnormal Glucose 183 (*) Narrative: Performed by: [facility], [address], [facility] [address] CLIA ID: [id number] POCT GLUCOSE METER UNSOLICITED RESULTS - Abnormal Glucose 154 (*) Narrative: Performed by: [facility], [address], [facility] [address] CLIA ID: [id number] POCT GLUCOSE METER UNSOLICITED RESULTS - Abnormal Glucose 140 (*) Narrative: Performed by: [facility], [address], [facility] [address] CLIA ID: [id number] POCT GLUCOSE METER UNSOLICITED RESULTS - Abnormal Glucose 147 (*) Narrative: Performed by: [facility], [address], [facility] [address] CLIA ID: [id number] POCT GLUCOSE METER UNSOLICITED RESULTS - Abnormal Glucose 133 (*) Narrative: Performed by: [facility], [address], [facility] [address] CLIA ID: [id number] POCT GLUCOSE METER UNSOLICITED RESULTS - Abnormal Glucose 117 (*) Narrative: Performed by: [facility], [address], [facility] [address] CLIA ID: [id number] POCT GLUCOSE METER UNSOLICITED RESULTS - Abnormal Glucose 117 (*) Narrative: Performed by: [facility], [address] [place] [address] CLIA ID: [id number] POCT GLUCOSE METER UNSOLICITED RESULTS - Abnormal Glucose 101 (*) Narrative: Performed by: [facility], [address] [place] [address] CLIA ID: [id number] POCT GLUCOSE METER UNSOLICITED RESULTS - Abnormal Glucose 110 (*) Narrative: Performed by: [facility], [address] [place] [address] CLIA ID: [id number] POCT GLUCOSE METER UNSOLICITED RESULTS - Abnormal Glucose 104 (*) Narrative: Performed by: [facility], [address] [place] [address] CLIA ID: [id number] POCT GLUCOSE METER UNSOLICITED RESULTS - Abnormal Glucose 122 (*) Narrative: Performed by: [facility], [address] [place] [address] CLIA ID: [id number] POCT VENOUS BLOOD GAS UNSOLICITED RESULTS - Abnormal pH, Venous 7.438 (*) pCO2, Venous 35.8 (*) pO2, Venous <29.6 HCO3, Venous 24.2 Base Excess, Venous 0.1 SO2, Venous 56.6 FIO2 30 Narrative: Performed by: [facility], [address] [place] [address] CLIA ID: [id number] POCT GLUCOSE METER UNSOLICITED RESULTS - Abnormal Glucose 130 (*) Narrative: Performed by: [facility], [address] [place] [address] CLIA ID: [id number] POCT GLUCOSE METER UNSOLICITED RESULTS - Abnormal Glucose 128 (*) Narrative: Performed by: [facility], [address] [place] [address] CLIA ID: [id number] POCT GLUCOSE METER UNSOLICITED RESULTS - Abnormal Glucose 138 (*) Narrative: Performed by: [facility], [address] [place] [address] CLIA ID: [id number] POCT GLUCOSE METER UNSOLICITED RESULTS - Abnormal Glucose 122 (*) Narrative: Performed by: [facility], [address] [place], [facility] [address] CLIA ID: [id number] POCT GLUCOSE METER UNSOLICITED RESULTS - Abnormal Glucose 121 (*) Narrative: Performed by: [facility], [address] [place], [facility] [address] CLIA ID: [id number] POCT GLUCOSE METER UNSOLICITED RESULTS - Abnormal Glucose 119 (*) Narrative: Performed by: [facility], [address], [facility] [address] CLIA ID: [id number] POCT GLUCOSE METER UNSOLICITED RESULTS - Abnormal Glucose 129 (*) Narrative: Performed by: [facility], [address], [facility] [address] CLIA ID: [id number] POCT GLUCOSE METER UNSOLICITED RESULTS - Abnormal Glucose 132 (*) Narrative: Performed by: [facility], [address], [facility] [address] CLIA ID: [id number] POCT GLUCOSE METER UNSOLICITED RESULTS - Abnormal Glucose 144 (*) Narrative: Performed by: [facility], [address], [facility] [address] CLIA ID: [id number] POCT GLUCOSE METER UNSOLICITED RESULTS - Abnormal Glucose 177 (*) Narrative: Performed by: [facility], [address], [facility] [address] CLIA ID: [id number] POCT GLUCOSE METER UNSOLICITED RESULTS - Abnormal Glucose 155 (*) Narrative: Performed by: [facility], [address], [facility] [address] CLIA ID: [id number] POCT GLUCOSE METER UNSOLICITED RESULTS - Abnormal Glucose 174 (*) Narrative: Performed by: [facility], [address], [facility] [address] CLIA ID: [id number] POCT GLUCOSE METER UNSOLICITED RESULTS - Abnormal Glucose 139 (*) Narrative: Performed by: [facility], [address], [facility] [address] CLIA ID: [id number] POCT GLUCOSE METER UNSOLICITED RESULTS - Abnormal Glucose 159 (*) Narrative: Performed by: [facility], [address] [facility], [facility] [address] CLIA ID: [id number] POCT GLUCOSE METER UNSOLICITED RESULTS - Abnormal Glucose 160 (*) Narrative: Performed by: [facility], [address] [facility], [facility] [address] CLIA ID: [id number] POCT GLUCOSE METER UNSOLICITED RESULTS - Abnormal Glucose 156 (*) Narrative: Performed by: [facility], [address] [facility], [facility] [address] CLIA ID: [id number] POCT GLUCOSE METER UNSOLICITED RESULTS - Abnormal Glucose 182 (*) Narrative: Performed by: [facility], [address] [facility], [facility] [address] CLIA ID: [id number] POCT GLUCOSE METER UNSOLICITED RESULTS - Abnormal Glucose 208 (*) Narrative: Performed by: [facility], [address] [facility], [facility] [address] CLIA ID: [id number] POCT GLUCOSE METER UNSOLICITED RESULTS - Abnormal Glucose 180 (*) Narrative: Performed by: [facility], [address] [facility], [facility] [address] CLIA ID: [id number] POCT GLUCOSE METER UNSOLICITED RESULTS - Abnormal Glucose 187 (*) Narrative: Performed by: [facility], [address] [facility], [facility] [address] CLIA ID: [id number] POCT GLUCOSE METER UNSOLICITED RESULTS - Abnormal Glucose 169 (*) Narrative: Performed by: [facility], [address] [facility], [facility] [address] CLIA ID: [id number] POCT GLUCOSE METER UNSOLICITED RESULTS - Abnormal Glucose 160 (*) Narrative: Performed by: [facility], [address] [facility], [facility] [address] CLIA ID: [id number] POCT GLUCOSE METER UNSOLICITED RESULTS - Abnormal Glucose 138 (*) Narrative: Performed by: [facility], [address] [facility], [facility] [address] CLIA ID: [id number] POCT GLUCOSE METER UNSOLICITED RESULTS - Abnormal Glucose 128 (*) Narrative: Performed by: [facility], [address] [facility], [facility] [address] CLIA ID: [id number] POCT GLUCOSE METER UNSOLICITED RESULTS - Abnormal Glucose 161 (*) Narrative: Performed by: [facility], [address] [place] [address], [facility] [address] CLIA ID: [id number] POCT GLUCOSE METER UNSOLICITED RESULTS - Abnormal Glucose 124 (*) Narrative: Performed by: [facility], [address] [facility], [facility] [address] CLIA ID: [id number] POCT GLUCOSE METER UNSOLICITED RESULTS - Abnormal Glucose 139 (*) Narrative: Performed by: [facility], [address] [facility], [facility] [address] CLIA ID: [id number] POCT GLUCOSE METER UNSOLICITED RESULTS - Abnormal Glucose 128 (*) Narrative: Performed by: [facility], [address] [place] [address], [facility] [address] CLIA ID: [id number] POCT GLUCOSE METER UNSOLICITED RESULTS - Abnormal Glucose 127 (*) Narrative: Performed by: [facility], [address] [place] [address], [facility] [address] CLIA ID: [id number] POCT GLUCOSE METER UNSOLICITED RESULTS - Abnormal Glucose 138 (*) Narrative: Performed by: [facility], [address] [place] [address] CLIA ID: [id number] POCT GLUCOSE METER UNSOLICITED RESULTS - Abnormal Glucose 158 (*) Narrative: Performed by: [facility], [address] [place] [address] CLIA ID: [id number] BLOOD CULTURE - Normal Blood Culture No growth at 48 hours Narrative: Blood Collection Site: Right Forearm OCCULT BLOOD, STOOL - Normal Fecal occult blood Negative Narrative: Methodology: Immunoassay SARS-COV-2 BY PCR - Normal SARS-CoV-2 Not Detected Narrative: Methodology: real-time, RT-PCR The SARS-CoV-2 assay is intended for in vitro diagnostic use under the FDA Emergency Use Authorization (EUA). This test has not been FDA cleared or approved. In compliance with this authorization, please visit www.fda.gov/media/077481/download or www.fda.gov/media/625732/download to access the applicable information sheets. MRSA BY PCR - Normal Staphylococcus aureus Not Detected mecA gene Not Detected Narrative: No Staphylococcus aureus detected. Negative nasal MRSA PCR has a high negative predictive value for MRSA pneumonia. Consider stopping Vancomycin if no other clinical indication. Contact Antimicrobial Stewardship for further recommendations. Staphylococcus aureus nasal screen by real-time PCR. This test was modified and its performance characteristics determined by [facility]. The [place]. Food and Drug Administration has not approved or cleared this test; however, FDA clearance or approval is not currently required for clinical use. The results are not intended to be used as the sole means for clinical diagnosis or patient management decisions. BLOOD CULTURE - Normal Blood Culture Blood culture incubation started Narrative: Blood Collection Site: Right Lower Arm BLOOD CULTURE - Normal Blood Culture Blood culture incubation started Narrative: Blood Collection Site: Right Upper Arm BETA HYDROXYBUTYRATE - Normal BETA HYDROXYBUTYRATE 1.71 SODIUM, URINE, RANDOM - Normal SODIUM, URINE 30 MAGNESIUM - Normal MAGNESIUM 1.9 PHOSPHORUS - Normal PHOSPHORUS 3.4 CALCIUM, IONIZED - Normal Calcium, Ion 4.30 PH, IONIZED CALCIUM 7.34 MAGNESIUM - Normal MAGNESIUM 2.0 MAGNESIUM - Normal MAGNESIUM 2.0 PHOSPHORUS - Normal PHOSPHORUS 3.5 PHOSPHORUS - Normal PHOSPHORUS 3.2 CALCIUM, IONIZED - Normal Calcium, Ion 4.50 PH, IONIZED CALCIUM 7.41 MAGNESIUM - Normal MAGNESIUM 2.0 MAGNESIUM - Normal MAGNESIUM 1.9 PHOSPHORUS - Normal PHOSPHORUS 3.2 PHOSPHORUS - Normal PHOSPHORUS 3.0 VANCOMYCIN, AUC TIMED DOSING - Normal VANCOMYCIN, AUC 18.0 LACTIC ACID WITH REFLEX - Normal LACTIC ACID 1.8 CALCIUM, IONIZED - Normal Calcium, Ion 4.40 PH, IONIZED CALCIUM 7.43 CALCIUM, IONIZED - Normal Calcium, Ion 4.40 PH, IONIZED CALCIUM 7.43 MAGNESIUM - Normal MAGNESIUM 1.9 MAGNESIUM - Normal MAGNESIUM 2.1 PHOSPHORUS - Normal PHOSPHORUS 3.0 PHOSPHORUS - Normal PHOSPHORUS 3.2 CALCIUM, IONIZED - Normal Calcium, Ion 4.30 PH, IONIZED CALCIUM 7.44 CALCIUM, IONIZED - Normal Calcium, Ion 4.40 PH, IONIZED CALCIUM 7.41 MAGNESIUM - Normal MAGNESIUM 2.0 MAGNESIUM - Normal MAGNESIUM 2.0 PHOSPHORUS - Normal PHOSPHORUS 3.0 PHOSPHORUS - Normal PHOSPHORUS 3.1 CK - Normal CK 84 PROLACTIN - Normal PROLACTIN 28.9 Narrative: Values below 35 ng/mL may be of doubtful significance. Recommend send-out testing to rule out macroprolactin to confirm the result. POCT GLUCOSE METER UNSOLICITED RESULTS - Normal Glucose 99 Narrative: Performed by: [facility], [address] [place] [address] CLIA ID: [id number] RESPIRATORY CULTURE AND STAIN Respiratory culture No growth of normal respiratory gaby. Gram Stain Result Value: Few Polymorphonuclear leukocytes per low power field Gram Stain Result Few Epithelial cells per low power field Gram Stain Result No organisms seen BLOOD CULTURE BLOOD CULTURE COMPLETE URINALYSIS WITH REFLEX TO CULTURE Narrative: The following orders were created for panel order Complete Urinalysis with reflex to Culture. Procedure Abnormality Status --------- ------ Complete Urinalysis[[id number]] Abnormal Final result Please view results for these tests on the individual orders. DRUGS OF ABUSE AMPHETAMINE SCREEN Negative BARBITURATES SCREEN Negative BENZODIAZEPINE SCREEN Negative COCAINE METAB. SCREEN Negative METHADONE SCREEN Negative OPIATES SCREEN Negative OXYCODONE SCREEN Positive PHENCYCLIDINE SCREEN Negative Narrative: The expected value for all of the drugs listed above is Negative. The following drugs or drug groups have been screened for by Immunoassay at the following thresholds: Amphetamine class (1000 ng/mL) Barbiturates (200 ng/mL) Benzodiazepines (200 ng/mL) Cocaine (300 ng/mL) Methadone (300 ng/mL) Opiates (300 ng/mL) Oxycodone (100 ng/mL) PCP (25 ng/mL) NOTE: These results are for medical treatment only. Analysis performed using non-forensic procedures. POSITIVE results are NOT confirmed by a more specific alternative method unless requested. If confirmation is needed, request confirmation under separate order. CREATININE, URINE, RANDOM CREATININE, URINE 79.0 BLOOD TYPE AND SCREEN GEL ABO Grouping A Antibody Screen NEG Rh Type POS BLOOD GAS, VENOUS BLOOD GAS, VENOUS BLOOD GAS ARTERIAL UREA NITROGEN, URINE BLOOD GAS, VENOUS APTT APTT APTT BLOOD GAS ARTERIAL HEPARIN-INDUCED PLATELET ANTIBODY APTT BASIC METABOLIC PANEL BASIC METABOLIC PANEL CALCIUM, IONIZED CALCIUM, IONIZED MAGNESIUM MAGNESIUM PHOSPHORUS PHOSPHORUS POCT ARTERIAL BLOOD GAS UNSOLICITED RESULTS pH, Arterial 7.417 pCO2, Arterial 38.5 pO2, Arterial 87.1 HCO3, Arterial 24.8 Base Excess, Arterial 0.4 SO2, Arterial 96.8 FIO2 30 Narrative: Performed by: [facility], [address] [place] [address] CLIA ID: [id number] POCT VENOUS BLOOD GAS UNSOLICITED RESULTS POCT GLUCOSE METER POCT GLUCOSE METER POCT GLUCOSE METER POCT GLUCOSE METER POCT GLUCOSE METER POCT GLUCOSE METER POCT GLUCOSE METER POCT GLUCOSE METER POCT GLUCOSE METER POCT GLUCOSE METER POCT GLUCOSE METER POCT GLUCOSE METER POCT GLUCOSE METER POCT GLUCOSE METER POCT GLUCOSE METER POCT GLUCOSE METER POCT GLUCOSE METER POCT GLUCOSE METER POCT GLUCOSE METER POCT GLUCOSE METER POCT GLUCOSE METER POCT GLUCOSE METER POCT GLUCOSE METER POCT GLUCOSE METER POCT GLUCOSE METER POCT GLUCOSE METER POCT GLUCOSE METER POCT GLUCOSE METER POCT GLUCOSE METER POCT GLUCOSE METER POCT GLUCOSE METER POCT GLUCOSE METER POCT GLUCOSE METER POCT GLUCOSE METER POCT GLUCOSE METER POCT GLUCOSE METER POCT GLUCOSE METER POCT GLUCOSE METER POCT GLUCOSE METER POCT GLUCOSE METER POCT GLUCOSE METER POCT GLUCOSE METER POCT GLUCOSE METER POCT GLUCOSE METER POCT GLUCOSE METER POCT GLUCOSE METER POCT GLUCOSE METER POCT GLUCOSE METER POCT GLUCOSE METER POCT GLUCOSE METER POCT GLUCOSE METER POCT GLUCOSE METER POCT GLUCOSE METER POCT GLUCOSE METER POCT GLUCOSE METER POCT GLUCOSE METER POCT GLUCOSE METER POCT GLUCOSE METER POCT GLUCOSE METER POCT GLUCOSE METER POCT GLUCOSE METER POCT GLUCOSE METER POCT GLUCOSE METER POCT GLUCOSE METER POCT GLUCOSE METER POCT GLUCOSE METER POCT GLUCOSE METER POCT GLUCOSE METER POCT GLUCOSE METER POCT GLUCOSE METER POCT GLUCOSE METER POCT GLUCOSE METER POCT GLUCOSE METER POCT GLUCOSE METER POCT GLUCOSE METER POCT GLUCOSE METER POCT GLUCOSE METER POCT GLUCOSE METER POCT GLUCOSE METER POCT GLUCOSE METER POCT GLUCOSE METER POCT GLUCOSE METER POCT GLUCOSE METER POCT GLUCOSE METER POCT GLUCOSE METER POCT GLUCOSE METER POCT GLUCOSE METER POCT GLUCOSE METER All other labs were within normal range or not returned as of this dictation. EMERGENCY DEPARTMENT COURSE and DIFFERENTIAL DIAGNOSIS/MDM: Vitals: Vitals: 08/02/23 1116 08/02/23 1202 08/02/23 1217 08/02/23 1232 BP: 122/94 102/50 101/75 150/81 Pulse: 94 90 100 99 Resp: (!) 31 (!) 8 18 23 Temp: TempSrc: SpO2: 98% 97% 98% Weight: Height: Medications Administered in the ED: Medications sodium chloride 0.9% (NS) flush 10 mL (10 mL IntraVENous Not Given 08/02/23 0900) sodium chloride 0.9% (NS) flush 10 mL ( IntraVENous MAR Unhold 4/30/24 0723) sodium chloride 0.9 % infusion ( IntraVENous MAR Unhold 07/31/23722) acetaminophen (Tylenol) tablet 650 mg ( Oral Held by provider 07/31/23 0315) Or acetaminophen (Tylenol) suppository 650 mg ( Rectal Held by provider 07/31/23 031) ondansetron ODT (Zofran-ODT) disintegrating tablet 4 mg ( Oral MAR Unhold 07/31/23722) Or ondansetron (Zofran) injection 4 mg ( IntraVENous MAR Unhold 07/31/23722) polyethylene glycol (PEG) 3350 (Miralax) packet 17 g ( Oral MAR Unhold 07/31/23722) famotidine (Pepcid) 20 mg in sodium chloride (PF) 0.9 % 10 mL injection (20 mg IntraVENous Given 08/02/23 0822) meropenem (Merrem) 2,000 mg in sodium chloride 0.9 % 100 mL IVPB (0 mg IntraVENous Stopped 08/02/23 0907) glucose oral gel 15 g ( Oral MAR Unhold 07/31/23722) dextrose 50 % solution 12.5 g ( IntraVENous MAR Unhold 07/31/23722) glucagon (human recombinant) injection 1 mg ( IntraMUSCular MAR Unhold 07/31/23722) dextrose 5 % infusion ( IntraVENous MAR Unhold 07/31/23722) stomahesive in petrolatum (ET Mix) ( Topical Given 08/02/23 0605) labetalol (Normodyne,Trandate) injection 10 mg ( IntraVENous MAR Unhold 07/31/23722) heparin injection 4,000 Units ( IntraVENous MAR Unhold 07/31/23722) heparin injection 2,000 Units (2,000 Units IntraVENous Given 08/02/23 1140) heparin 25,000 units in dextrose 5% 250mL infusion (premix) (10 Units/kg/hr 159 kg IntraVENous Rate/Dose Change 08/02/23 1141) Petrolatum ointment ( Topical Given 08/02/23 0606) sodium chloride 0.9% (NS) flush 5-40 mL ( IntraVENous MAR Unhold 07/31/23722) insulin regular 100 units in 100 mL NS (Myxredlin) infusion (premix) (10 Units/hr IntraVENous Rate/Dose Verify 08/02/23 1219) ipratropium-albuterol (Duo-Neb) 0.5-2.5 mg/3 mL nebulizer solution 3 mL (3 mL Nebulization Given 08/02/23 0907) miconazole (Micotin) 2 % powder ( Topical Given 08/02/23 0830) sertraline (Zoloft) tablet 50 mg (50 mg Oral Given 08/02/23 08) apixaban (Eliquis) tablet 5 mg ( Oral Dose Auto Held 08/08/23 2100) atorvastatin (Lipitor) tablet 20 mg (20 mg Oral Given 08/01/232007) donepezil (Aricept) tablet 10 mg (10 mg Oral Given 08/01/232007) senna-docusate sodium (Senokot-S) 8.6-50 MG tablet 2 tablet (2 tablets Oral Given 08/02/23 06) bisacodyl (Dulcolax) suppository 10 mg (10 mg Rectal Given 08/02/23 06) polyethylene glycol (PEG) 3350 (Miralax) packet 17 g (17 g Oral Given 08/02/23821) Phenylephrine HCl (Pressors) 1 MG/10ML injection - Pyxis ADS Override Pull ( Not Given 07/31/23 0430) norepinephrine (Levophed) infusion 16 mg in 0.9 % sodium chloride 250 mL (Cuc-Yiardn-Nentk) (premix) (0 mcg/min IntraVENous Stopped 08/01/23 1548) lidocaine (Uro-Jet) 2 % gel ( Topical MAR Unhold 07/31/23 0723) ascorbic acid (Vitamin C) tablet 250 mg (250 mg Oral Given 08/02/23 0822) baclofen (Lioresal) tablet 5 mg (5 mg Oral Given 08/02/23 0822) Diclofenac Sodium (Voltaren) 1 % gel 4 g (4 g Topical Given 08/02/23 09) gabapentin (Neurontin) capsule 200 mg (200 mg Oral Given 08/02/23 08) lisinopril tablet 10 mg ( Oral Dose Auto Held 08/08/23 0900) nystatin (Mycostatin) cream ( Topical Given 08/02/23 0829) fentaNYL (Sublimaze) 1000 mcg in sodium chloride 0.9 % 100 mL 10 mcg/mL infusion (85 mcg/hr IntraVENous New Bag 08/02/23 1044) sodium chloride 0.9% (NS) flush 5-40 mL ( IntraCATHeter Not Given 08/02/23 1030) sodium chloride 0.9% (NS) flush 5-40 mL (has no administration in time range) vancomycin IVPB 1500 mg in 250 mL NS (premix) (0 mg IntraVENous Stopped 08/01/23 1635) propofol (Diprivan) infusion (10 mcg/kg/min 159 kg IntraVENous Rate/Dose Change 08/02/23 1244) ammonium lactate (Lac-Hydrin) 12 % lotion ( Topical Given 08/02/23 0822) Hydrocortisone Sod Suc (PF) (Solu-CORTEF) injection 50 mg (50 mg IntraVENous Given 08/02/23 1016) sodium chloride 0.9 % bolus 1,000 mL (0 mL IntraVENous Stopped 07/30/23 1455) sodium chloride 0.9 % bolus 1,000 mL (0 mL IntraVENous Stopped 07/30/23 1550) vancomycin in NS (Vancocin) IVPB 2,000 mg (0 mg IntraVENous Stopped 07/30/23 1848) cefepime (Maxipime) 2,000 mg in sodium chloride 0.9 % 50 mL IVPB Mini-Bag Plus (0 mg IntraVENous Stopped 07/30/23 1632) sodium chloride 0.9 % bolus 1,000 mL (0 mL IntraVENous Stopped 07/30/23 1753) lactated ringers bolus 1,000 mL (0 mL IntraVENous Stopped 07/30/23 2138) sodium bicarbonate 8.4 % injection 50 mEq (50 mEq IntraVENous Given 07/30/23 2139) perflutren protein A microsphere (Optison) 3 mL in sodium chloride (PF) 0.9 % 10 mL IV syringe (7 mL IntraVENous Given 07/31/23 0848) albumin human 25 % IV solution 50 g (0 g IntraVENous Stopped 07/31/23 0031) lactated ringers bolus 500 mL (0 mL IntraVENous Stopped 07/31/23 0130) insulin regular (HumuLIN R,NovoLIN R) injection 10 Units (10 Units IntraVENous Given 07/30/232351) And dextrose 50 % solution 25 g (25 g IntraVENous Given 07/30/23 2353) sodium bicarbonate 8.4 % injection 50 mEq (50 mEq IntraVENous Given 07/30/232346) heparin injection 4,000 Units (4,000 Units IntraVENous Given 07/31/23 0142) insulin regular (HumuLIN R,NovoLIN R) injection 10 Units (10 Units SubCUTAneous Given 07/31/23 003) fentaNYL (Sublimaze) injection (20 mcg IntraVENous Given 07/31/23428) rocuronium (ZeMuron) injection (15,900 mg IntraVENous Given 07/31/23431) lactated ringers bolus 1,000 mL (0 mL IntraVENous Stopped 07/31/232054) calcium gluconate 2000 mg in 100 mL IVPB premix (0 mg IntraVENous Stopped 07/31/232038) albumin human 25 % IV solution 50 g (0 g IntraVENous Stopped 07/31/231936) lactated ringers bolus 500 mL (0 mL IntraVENous Stopped 07/31/231930) calcium gluconate 2000 mg in 100 mL IVPB premix (0 mg IntraVENous Stopped 08/01/23 0044) lactated ringers bolus 1,000 mL (0 mL IntraVENous Stopped 08/01/23 0243) lactated ringers bolus 1,000 mL (0 mL IntraVENous Stopped 08/01/23 1023) furosemide (Lasix) injection 40 mg (40 mg IntraVENous Given 08/02/23 1035) With concern for altered mentation PROCEDURES: Unless otherwise noted below, none Procedures Differential Diagnosis Considerations: Infection, intracranial abnormalities, cardiac abnormality such as ischemia, electrolyte derangements, anemia, dehydration Sources of History: EMS ED Course: Vital signs on arrival are normal and stable. Patient's mentation is of concern where she is not responding appropriately and may be related to infection or other abnormalities as mentioned above. Will obtain workup, give her fluid bolus although anticipate that she will require admission due to a complete change in her mentation SEP-1 CORE MEASURE DATA SIRS Criteria Sepsis Criteria Severe Sepsis Criteria Septic Shock Criteria Must meet 2: [] Temperature > 100.4 F (38 C) or < 96.8 F (36 C) [] HR > 90 [] RR > 20 [x] WBC > 12 or < 4 or 10% bands Must be confirmed or suspected to move forward with diagnosis of sepsis. [x] Infection Confirmed or Suspected. [] No infection present. Patient does not meet criteria for Sepsis. Must meet 1: [x] Lactate > 2 or [x] Signs of Organ Dysfunction: - SBP < 90 or MAP < 65 - Altered mental status - Creatinine > 2 or increased from baseline - Urine Output < 0.5 ml/kg/hr - Bilirubin > 2 - INR > 1.5 - Platelets < 100,000 - Acute Respiratory Failure as evidenced by new need for NIPPV or mechanical ventilation [] No criteria met for Severe Sepsis. Must meet 1: [x] Lactate = or > 4 or [] SBP < 90 or MAP < 65 for at least two readings in the first hour after fluid bolus administration [] No criteria met for Septic Shock. Patient Vitals from 08/01/232300 to 08/02/23 0000 BP Temp Temp src Pulse Resp SpO2 08/01/232301 -- 36.9 C (98.5 F) Axillary -- -- -- 08/01/232302 (!) 128/42 -- -- 99 17 96 % Recent Labs 07/31/23 0508 07/31/23 1148 07/31/23 1748 07/31/23 1945 08/01/23 0003 08/01/23 0415 08/01/23 0600 08/01/23 1152 08/01/23 1937 08/02/23 0128 08/02/23 0422 08/02/23 0745 WBC 16.2* < > -- -- 21.5* -- 19.7* -- -- -- 8.2 -- LACTATE -- < > -- 2.6* 2.2* 1.8 -- -- -- -- -- -- CREATININE 1.64* < > 1.82* -- 1.76* -- 1.62* < > 1.49* 1.44* -- 1.42* BILITOT 0.8 -- 0.7 -- -- -- 0.8 -- 0.6 -- -- -- INR 1.2* -- -- -- -- -- 1.1 -- -- -- 1.1 -- PLT 100* < > -- -- 96* -- 95* -- -- -- 74* -- < > = values in this interval not displayed. Sepsis Identified at 1453 hours. Fluid Resuscitation Rational: at least 30mL/kg based on ideal body weight due to obesity defined as BMI >30 (patient's BMI is @BMI@ and IBW is @idealbodyweight@) Was given 3 total liters as her weight is 160 kg which would mean she would require at least 4.5 L and was having response to lower volumes Infection Source: Urinary System Reassessment Exam: SEPSIS REASSESSMENT I examined the patient 07/30/2023 18:30 Vital Signs:BP 150/81 Pulse 99 Temp 36.9 C (98.5 F) (Axillary) Resp 23 Ht 1.651 m (5' 5") Wt (!) 159 kg (350 lb) SpO2 98% BMI 58.24 kg/m Cardiac examination significant for: Tachycardia Pulmonary examination significant for: Coarse breath sounds, limited to body habitus Capillary refill is: 2 seconds Peripheral Pulse is: 1+ Skin is: Normal Cesario Lemon MD Reassessment: Patient's blood work on reassessment does show leukocytosis of 13.9, troponin is elevated although unsure of the etiology although likely secondary to demand in her current clinical picture. EKG showing sinus rhythm at 55 bpm, no ST segment elevations that are concerning for ischemia. Otherwise also shows an WHITLEY with creatinine of 1.78 and potassium of 5.8. VBG did show acidosis although not a respiratory component and likely metabolic in nature as her lactic acid is also 5.6 Consulted ICU as patient mentation is still somewhat poor even after fluids. Repeat BMP which showed some improvement of creatinine likely contributing from her severe dehydration. Consideration of Admission/Observation: Independent Interpretation of Tests: Diagnostic Tests Considered but not Performed: Prescription Medications Considered but not Prescribed: Chronic Conditions Affecting Care: CRITICAL CARE TIME Total Critical Care time was 35 minutes, excluding separately reportable procedures. There was a high probability of clinically significant/life threatening deterioration in the patient's condition which required my urgent intervention. FINAL IMPRESSION 1. Severe sepsis (HCC) 2. Asymptomatic bacteriuria 3. Chronic heart failure with preserved ejection fraction (HCC) 4. 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 If there are any questions or concerns please feel free to contact the dictating provider for clarification.) Cesario Lemon MD (electronically signed) Emergency Medicine Provider [facility] Cesario Lemon MD 08/02/23 1259 Cesario Lemon MD 08/08/23 0739 Patient endorsed to me pending ICU evaluation, who stated that they would like to see what the repeat lactate and VBG are. Lactic acid came down from 5.6 to 4.0, but on repeat VBG, pH decreased to 7.16 and bicarb also decreased to 14.2. Because of this, they were reconsulted. I did place an order for bicarb gtt. the patient is only arousable to painful stimuli on my exam. ICU agreed to admit the patient. CRITICAL CARE TIME Total Critical Care time was 15 minutes, excluding separately reportable procedures. There was a high probability of clinically significant/life threatening deterioration in the patient's condition which required my urgent intervention. Kirsten Rogers MD 07/30/23 0154 Pt [facility] by EMS from [facility] with c/o altered mental status. Less alert than baseline. States her BGT was in the 500's before leaving [facility] gave pt 9 units of insulin, BGT in squad was in 300's. Pt arrives only responding to voice, 96% on RA. Last known well unknown. Pt is lethargic and foul smelling. Unable to ask screening questions or complete triage due to pts mental status. Kmai Oquendo RN 07/30/23 3377 documented in this encounter [facility] 07-30-2023 History and physical note Images from the original note were not included. Internal Medicine: MICU Initial History and Physical Name: Salazar Coyle : 1950(72 y.o.) Date: 07/30/23 Attending: Dr. Esquivel Subjective: Chief Complaint: Altered Mental Status HPI: 72 YO female w/PMH dementia, T2DM, morbid obesity, PHOEBE, chronic Jose 2/2 neurogenic bladder, Anxiety and chronic pain. OF note, patient admitted May 2022 w/ ESBL E. Coli bacteremia with left UPJ calculus s/p stent and extended IV meropenem. Patient did require laser lithotripsy and stent exchange at this time. Patient arrived to [facility] ED for altered mental status. Per staff patient was "awake and talking this AM". On assessment patient responds to name and noxious stimuli. Patient with chronic jose noted with purulent material draining from catheter. CXR negative for acute issues and CT head negative for acute events. Labs of note include Na 134, K 5.8, CO2 17, BUN 75 Scr 1.75, Glucose 326, Lactic acid 5.6, Troponin elevated, WBC 13.6, bands 23, UA WBC 50-100, Loaded with Leuks. Patient treated with sepsis bundle including NS 3000 ml, vancomycin and cefepime. ICU consulted at this time for ongoing metabolic encephalopathy and lactic acidosis On assessment patient w/ongoing encephalopathy and arouses to noxious stimuli. VSS but mentation is a concern. Repeat labs indicate worsening metabolic acidosis. Patient will be admitted to ICU for severe sepsis and metabolic encephalopathy for further work up and treatment. Past Medical History: Diagnosis Date A-fib (CMS/HCC) (HCC) Anemia Diabetes (HCC) Lymphedema Obesity No past surgical history on file. No family history on file. Social History Socioeconomic History Marital status: Spouse name: Not on file Number of children: Not on file Years of education: Not on file Highest education level: Not on file Occupational History Not on file Tobacco Use Smoking status: Never Smokeless tobacco: Never Vaping Use Vaping Use: Never used Substance and Sexual Activity Alcohol use: Never Drug use: Never Sexual activity: Not Currently Other Topics Concern Not on file Social History Narrative Not on file Social Determinants of Health Financial Resource Strain: Not on file Food Insecurity: Not on file Transportation Needs: Not on file Physical Activity: Not on file Stress: Not on file Social Connections: Not on file Intimate Partner Violence: Not At Risk (01/08/2023) Humiliation, Afraid, Rape, and Kick questionnaire Fear of Current or Ex-Partner: No Emotionally Abused: No Physically Abused: No Sexually Abused: No Housing Stability: Not on file Allergies Allergen Reactions Ertapenem Patient tolerated July 2022 Prior to Admission medications Medication Sig Start Date End Date Taking? Authorizing Provider acetaminophen (Tylenol) 325 MG tablet Take 325 mg by mouth 3 times daily. Historical Provider, apixaban (Eliquis) 5 MG tablet Take 5 mg by mouth 2 times daily. Historical Provider, ascorbic acid (Vitamin C) 250 MG tablet Take 250 mg by mouth daily. Historical Provider, atorvastatin (Lipitor) 20 MG tablet Take 20 mg by mouth daily. Historical Provider, baclofen (Lioresal) 5 MG tablet Take 1 tablet by mouth 3 times daily. 04/14/21 Historical Provider, Calcium Carbonate-Vitamin D (Oyster Shell Calcium/D) 500-5 MG-MCG tablet Take 1 tablet by mouth daily. Historical Provider, Diclofenac Sodium (Voltaren) 1 % gel Apply 4 g topically 2 times daily. 01/11/23 Paige Rivera DO donepezil (Aricept) 10 MG tablet Take 10 mg by mouth Nightly. Historical Provider, furosemide (Lasix) 40 MG tablet Take 40 mg by mouth in the morning and 40 mg in the evening. 07/11/22 Historical Provider, gabapentin (Neurontin) 100 MG capsule Take 2 capsules (200 mg) by mouth 3 times daily. 01/11/23 04/11/23 Paige Rivera DO insulin glargine (Lantus) 100 UNIT/ML injection Inject 10 Units under the skin Nightly. 06/16/22 06/16/23 Elise Park MD Insulin Lispro (Humalog) 100 UNIT/ML solution injection Inject 3 Units under the skin in the morning and 3 Units at noon and 3 Units in the evening. Inject with meals. 08/07/22 08/07/23 Juan Becker DO lisinopril 10 MG tablet Take 10 mg by mouth daily. Historical Provider, nystatin (Mycostatin) 701187 UNIT/GM powder 03/22/22 Historical Provider, senna-docusate (Helena-Colace) 8.6-50 MG tablet Take 100 tablets by mouth Every 24 hours. 04/06/21 Historical Provider, sertraline (Zoloft) 50 MG tablet Take 50 mg by mouth daily. 08/18/21 Historical Provider, Objective: Oxygen Delivery: VITALS: BP (!) 168/58 Pulse 84 Temp 37.1 C (98.8 F) (Rectal) Resp 12 Wt (!) 159 kg (350 lb) SpO2 97% BMI 56.52 kg/m CURRENT PULSE OXIMETRY: SpO2: 97 % Review of Systems Unable to perform ROS: Mental status change Constitutional: General Appearance []WDWN [x]Obese []Cachectic []Thin [x]Ill Eyes: Inspection of Pupils/Irises Pupils round and react: [x]Yes []No Sclera: []Icteric [x]Non-Icteric Inspection of Conjunctiva/Lids Conjunctiva: []Injected [x]Non-Injected Lids: [x]Intact []Lesion Present ENT/Mouth: External Inspection of ears/nose [x] Normal [] Scar/Lesion/Mass Inspection of teeth/lips/gums Dentition: [x]Crow Teeth []Dentures Lips/Gums: [x]Intact []Lesion Present Mucosa: [x][place] [x]Moist []Dry Neck: External Appearance Overall Appearance: [x]Normal []Lesion/Mass/Crepitus Present Trachea midline: [x]Yes []No Thyroid [x]Normal []Enlarged []Tender []Mass []Absent Respiratory: Respiratory effort []Labored [x]Non-Labored [] Mechanically-Ventilated Auscultation [x]Clear []Crackles []Wheezes []Rhonchi Cardiovascular: Auscultation Rate: []Regular []Irregular [x]Tachycardia []Bradycardia Rhythm: [x]Regular []Irregular Murmur: []Present [x]Absent Extremities Peripheral Edema: [x]Present []Absent Varicosities: []Present []Absent Bilateral lower extr with +3-4 pitting edema/lymphedema Gastrointestinal: Abdomen Palpation: [x]Soft/Rotund []Firm []Tender [x]Non-Tender []Distended [x]Non-distended Mass: []Present []Absent Bowel Sounds: [x]Present []Absent Hernia: []Present []Absent Liver/Spleen: []Hepatosplenomegaly []Organomegaly Absent Musculoskeletal: Inspection of Digits and Nails Cyanosis: []Present [x]Absent Clubbing: []Present [x]Absent Ischemia: []Present [x]Absent Infection: []Present [x]Absent Extremities BLANCA Equally: Except ([]RUE []RLE []LUE []LLE) Strength/Tone: Intact and Normal ([]RUE []RLE []LUE []LLE) Generalized weakness and debility. Patient bed bound Skin: Inspection []Normal []Rash []Lesion []Ulcer -Chronic wounds to bilateral lower extr. DO not look infected -Bilateral feet with dry flaking skin -all folds with red fungal like rash Palpation []Warm [x]Cool []Dry []Clammy []Nodules []Induration []Skin-tightening Cap-Refill: [x] <3 sec [] >3 seconds (delayed) Neurologic: GCS EYE: 3 - Opens to verbal commands GCS MOTOR: 5 - Localizes to pain (purposeful movements to painful stimulus) GCS VERBAL: 4 - Confused Total GCS: 12 [x] Sensation grossly intact Psych: Mental Status Alert: []Yes [] No Oriented: []x0 [x]X1 []X2 []x3 Mood/Affect []Normal []Flat []Agitated []Depressed []Anxious []Calm []Sedated []NAD -Patient arouses to name and noxious stimulation. Gets irritated with questions. -Is not following commands [facility] within last 24 hours- BMP: Recent Labs 07/30/23 1337 07/30/23 1830 NA 134* 135 K 5.8* 4.7 CL 102 112* CO2 20* 17* BUN 75* 62* CREATININE 1.78* 1.43* CALCIUM 8.4 6.3* LFTs: Recent Labs 07/30/23 1337 07/30/23 1652 AST 62* -- ALT 31 -- PROT 6.6 -- ALBUMIN 3.5 -- BILITOT 0.8 -- BILIRUBINU -- Negative ALKPHOS 84 -- Glucose: Recent Labs 07/30/23 1306 07/30/23 1337 07/30/23 1830 07/30/23 1924 GLUCOSE -- 326* 286* -- POCGLU 357* -- -- 339* Procal: No results for input(s): "PROCAL" in the last 72 hours. CBC: Recent Labs 07/30/23 1337 WBC 13.9* HGB 11.3* HCT 35.2 PLT 183 MCV 106.3* RDW 14.4 ABGs: No results for input(s): "PHART", "HGF9ZOQ", "PO2ART", "PDL4KIW", "SO2ART", "F1NYVZRY" in the last 72 hours. Lactic Acid: Recent Labs 07/30/23 1452 LACTATE 5.6* INR: No results for input(s): "INR" in the last 72 hours. Cardiac Injury Profile: Recent Labs 07/30/23 1337 07/30/23 1714 07/30/23 1830 TROPONINI 0.253* 0.282* 0.570* Labs in Last 3 months: Lab Results Component Value Date INR 1.0 08/03/2022 Microbiology- Urine Cx: Lab Results Component Value Date URINECX 01/08/2023 Multiple species present; probable contamination; repeat suggested Blood Cx: Lab Results Component Value Date BLOODCX Blood culture incubation started 07/30/2023 BLOODCX Blood culture incubation started 07/30/2023 Sputum Cx: No results found for: RESPCULT Gram Stain: Lab Results Component Value Date LABGRAM (A) 06/10/2022 Many Polymorphonuclear leukocytes per low power field LABGRAM Moderate Gram positive cocci in clusters (A) 06/10/2022 LABGRAM Few Gram positive bacilli (A) 06/10/2022 LABGRAM Rare Gram negative bacilli (A) 06/10/2022 PNA PCR: No results found for: HUMANMETAPNE COVID19: No results found for: COVID19 Legionella Ag: No results found for: LEGIONELLAPN Strep Ag: No results for input(s): "STREPPNEUMO" in the last 72 hours. Imaging- 07/30/2023 CT head Acute findings: No convincing acute ischemia or infarct, mass effect or midline shift, or hemorrhage. Bony structures:Unremarkable as seen. Orbits within normal limits, limited lack of contrast. Review of the paranasal sinuses shows stable right maxillary fluid-filled partially calcified structure etiology uncertain.. IMPRESSION: No acute brain process identified. 07/30/2023 CXR Impression: 1. Lines/Tubes/Devices/Hardware: Leads noted. Please confirm position and function of any catheters or attempted catheters clinically. 2. Lungs: No convincing acute process.. Limited due to portable technique. Consider follow-up with PA and lateral chest for persistent symptoms. 3. Pleura: No significant effusion. No significant pneumothorax. 4. Heart and mediastinum: Limited due to technique. 5. Upper abdomen: No acute process seen. 6. Thorax:No acute bony process 06/10/2022 ECHO Left Ventricle: Left ventricle size is normal. Mildly increased wall thickness. Low normal left ventricular systolic function. The EF by visual approximation is 50%. Normal wall motion. Septal motion is consistent with bundle branch block. Right Ventricle: Right ventricle is mildly dilated. Low normal systolic function. Tricuspid Valve: Mild (1+) regurgitation. Moderately elevated RVSP. RVSP is 46 mmHg. IVC/SVC: IVC diameter is dilated and decreases greater than 50% during inspiration; therefore the estimated right atrial pressure is intermediate (~8 mmHg). Technically difficult study. Assessment and Plan: Active Problems: There are no active Hospital Problems. Assessment: Urosepsis vs Pyelonephritis Severe sepsis HX ESBL Bacteremia requiring long dose Meropenem HX Left UPJ calculus Chronic jose 2/2 Neurogenic bladder Leukocytosis -Chronic jose with purulent drainage, + rigors and fever -Jose changed -Trend cultures--> adjust antibiotics per C&S -CT abdomen completed -Cover for ESBL w/meropenem -Consult to ID Metabolic acidosis Lactic acidosis NAGMA CKD 3B WHITLEY -BUN 75/ Scr 1.78 -Baseline 0.77 -1.2 -Lactic acid--> 4.0--> 6.7 -Worsening acidosis --> NaHCO3 gtt started in ED -Patient appears volume depleted--> bolus PRN -Strict I/O -Pending urine studies Metabolic encephalopathy Vascular/Alzheimer Dementia -home med aricept -recommend holding all sedating medications -CT head no acute processes -Concern for altered mental status multifactorial 2/2 medications and likely urosepsis Elevated Troponin Hx HFpEF HX Paroxysmal Afib -Likely Type II/ demand ischemia -Patient on eliquis at facility -->patient received eliquis doses today -Ongoing increase in troponin--> heparin gtt initiated -HR 80-110's --> sinus tachycardia -TTE in AM HTN/HLD -Home med Lisinopril and Atorvastatin -Maintain SBP< 180 -Use PRN labetalol -restart home meds as able PHOEBE HX Noncompliance to CPAP -Autopap ordered patient tolerating -Repeat ABG -Duonebs PRN T2DM Hyperglycemia -SSI Moderate dosing -Lantus at HS -Check A1C--> 9.0 -BHB Negative -POCT Q6H -Hypoglycemia protocol Chronic Lower Extremity wounds Chronic Venous stasis -Stable -Do not appear infected Chronic Pain Anxiety -Home Meds: Gabapentin, Ativan, Oxycodone, and sertraline -Hold all medications 2/2 altered mental status -Concern for WHITLEY and medications not clearing Morbid Obesity Failure to Thrive -BMI 56.52 -Bedbound Debility -Recommend PT/OT eval and tx -Lumber Carrier Operator consult -Consult to social work and case management for discharge planning Code Status -Full Code -Recommend a Palliative Care Consult for ad terminal makeup operator goals of care GI Prophylaxis: famotidine 20mg BID DVT Prophylaxis: Full anticoagulation heparin gtt BMI Classification: Body mass index is 56.52 kg/m . morbid obesity BMI 40 or > Discussed with Dr Esquivel Disposition: Admit to ICU Critical Care Time: > 40 minutes Total critical care time caring for this patient with life threatening, unstable organ failure, including direct patient contact, management of life support systems, review of data including imaging and labs, discussions with other team members and physicians, excluding procedures. documented in this encounter [facility] 01-11-2023 Note Formatting of this n ote might be different from the original. Dc back to [facility] this afternoon at 3:30. [facility] to transport. Ambulance transport form completed and will be provided to 2E ward secretary. Jt messaged the facility with the picking machine operator helper time. Report number given to the bedside nurse. Voicemail message left for patients emergency contact Deidra to share dc arrangements and picking machine operator helper time. Provided my number should she have any questions or concerns. [facility] 01-11-2023 Note Formatting of this n ote might be different from the original. Dc back to [facility] this afternoon at 3:30. [facility] to transport. Ambulance transport form completed and will be provided to 2E ward secretary. Jt messaged the facility with the picking machine operator helper time. Report number given to the bedside nurse. Voicemail message left for patients emergency contact Deidra to share dc arrangements and picking machine operator helper time. Provided my number should she have any questions or concerns. [facility] 01-11-2023 Miscellaneous Notes Dc back to [facility] this afternoon at 3:30. [facility] to [facility]. Ambulance transport form completed and will be provided to 2E ward secretary. Jt messaged the facility with the picking machine operator helper time. Report number given to the bedside nurse. Voicemail message left for patients emergency contact Deidra to share dc arrangements and picking machine operator helper time. Provided my number should she have any questions or concerns. Referral placed to return back to [facility] via [facility] per [facility] request. Await review and response regarding ability to accept. TCC notified. Images from the original note were not included. Care Management Progress Note Patient with discharge orders placed. [facility] tasked, via [facility], send discharge paperwork and updated notes, per facility, to [facility]. Secure message sent to SW to arrange transportation, notify facility and family. Discharge Milestones and Delays Expected Date/Time: 01/11/2023 Disposition: [facility] Facility Transport status: No current request Discharge Milestones Completed Place discharge order Complete med reconciliation Case mgmt discharge readiness Expected Discharge History Expected Date/Time Set By Reviewed At 01/11/2023 Paige Rivera DO 01/11/2023 11:29 AM 01/11/2023 Nandini Fonseca RN 01/11/2023 7:49 AM 01/10/2023 Paige Rivera DO 01/10/2023 10:09 AM 01/11/2023 Nandini Fonseca RN 01/10/2023 8:10 AM 01/11/2023 Nandini Fonseca RN 01/09/2023 7:42 AM 01/11/2023 Mario Portillo MD 01/08/2023 5:00 PM 01/11/2023 Mario Portillo MD 01/08/2023 8:03 AM Length of Stay (Days): 0 GMLOS: No GMLOS Documented Images from the original note were not included. Care Management Progress Note Patient remains on 2E for right arm pain. Clinical updates: Patient has a jose, blood cultures no growth for 48 hours. Refused AM labs. Wound care, orthopedic surgery following. Discharge plan: Back to [facility] when medically stable. Discharge obstacles: none noted. TCC to continue to follow. Discharge Milestones and Delays Expected Date/Time: 01/10/[address] discharge order Complete med reconciliation Case mgmt discharge readiness Clinical Stability Diagnsotic Workup Expected Discharge History Expected Date/Time Set By Reviewed At 01/10/2023 Paige Rivera DO 01/10/2023 10:09 AM 01/11/2023 Nandini Fonseca RN 01/10/2023 8:10 AM 01/11/2023 Nandini Fonseca RN 01/09/2023 7:42 AM 01/11/2023 Mario Portillo MD 01/08/2023 5:00 PM 01/11/2023 Mario Portillo MD 01/08/2023 8:03 AM Length of Stay (Days): 0 GMLOS: No GMLOS Documented Images from the original note were not included. Care Management Progress Note TRANSITIONAL CARE DAILY NOTE/UPDATES: Patient remains on 2E for right arm pain. Clinical updates: Patient has a jose, pending blood cultures. Refused AM labs. Wound care, orthopedic surgery following. Discharge plan: Back to [facility] when medically stable. Discharge obstacles: none noted. TCC to continue to follow. Discharge Milestones and Delays Expected Date/Time: 01/11/[address] discharge order Complete med reconciliation Case mgmt discharge readiness Clinical Stability Diagnsotic Workup Expected Discharge History Expected Date/Time Set By Reviewed At 01/11/2023 Nandini Fonseca RN 01/09/2023 7:42 AM 01/11/2023 Mario Portillo MD 01/08/2023 5:00 PM 01/11/2023 Mario Portillo MD 01/08/2023 8:03 AM Length of Stay (Days): 1 GMLOS: No GMLOS Documented Care Managment Initial Assessment Date: 01/08/2023 Patient Name: Salazar Coyle : 1950 Patient Information Source of Information: Patient Registered Nurse Maternity Name/Contact Information: Spoke with Jesus on the phone Cognition/Language: Confused at baseline Permission given to speak with patient career services representative/caregiver as indicated: Yes Confirmation of Payer with patient/family: Yes Payer Name: [facility] [facility] [place]: No Confirmation of Primary Care Physician: Confirmed PCP Name: Dr Paige Rivera Seen in last 2 years?: Yes Primary Caregiver: (Per , patient to return to [facility]) If assistance needed, confirmed caregiver ready, willing and able to care for patient at discharge: Yes Confirmed with: [facility] Living Arrangements Current Residence: Number of Floors Number of Entry Steps: Bed/Bath Levels: Facility: Residential/Residental Care Facility Name: [facility] Plan to Return: Yes Lives with: ([facility]) Support Systems: Spouse/significant other, Children, Family members, Friends/neighbors ([facility] staff and residents) Activities of Daily Living Ambulation: Total Care Bathing/Dressing: Total Care Elimination/Continence/Toileting: Total Care Feeding: Total Care Who Assists with Activities of Daily Living: [facility] staff Instrumental Activities of Daily Living Prescription Coverage: Yes Pharmacy Used: [facility] pharmacy Medication Management: ([facility] nurses manage medications) Transportation/Shopping: Assistance Provider Transportation/Shopping Assistance Provider Name: Family and ECF provide all of patient's necessities Transportation Mode: Needs Assistance with Transportation at Discharge: Yes (TERMINAL OPERATOR to set up return transportation to [facility]) Meal Preparation: Assistance Provider Meal Prep Assistance Provider Name: [facility] staff Laundry/Cleaning: Assistance Provider Laundry/Cleaning Assistance Provider Name: [facility] staff Finances/Bill Paying: Assistance Provider Finances/Bill Payer Assistance Provider Name: Jesus Communication: Independent Types of Care Services/Equipment Utilized Care Services: Dialysis Type: Durable Medical Equipment: Wheelchair (standard or power), Hospital Bed, Raheem Lift Patient's Goal/Discharge Plan Patient expects to be discharged to: Return to [facility] Discharge Planning Actions: Continue to follow Patient's Choice Rights and [employer] and Collaborative Relationships Disclosed as Indicated for Post-Acute Care: Interdisciplinary Team Engagement: PT/OT Social Work Referral for: Additional Information: IA completed over the phone with Jesus. Introduced self and role. Patient is admitted (ED roomed) for severe neck and right arm pain. Found to have cystitis on admission. Patient lives in [facility], TERMINAL OPERATOR to set up return transport to [facility]. Sees facility Fashion Intern Dr Paige Rivera (PCP) routinely. Has insurance and prescription coverage, uses [facility]. Jesus denies any financial difficulties. Plan to return to [facility] when medically stable, confirmed that patient is a Medicaid bed hold in [facility]. Jesus verbalizes understanding and is in agreement with POC. Nancy Gastelum RN documented in this encounter [facility] 01-11-2023 Note Formatting of this n ote might be different from the original. Referral placed to return back to [facility] via [facility] per TCC request. Await review and response regarding ability to accept. TCC notified. [facility] 01-11-2023 Note Formatting of this n ote might be different from the original. Referral placed to return back to [facility] via [facility] per TCC request. Await review and response regarding ability to accept. TCC notified. [facility] 01-11-2023 Note Formatting of this n ote is different from the original. Images from the original note were not included. Care Management Progress Note Patient with discharge orders placed. ICHTHYOLOGY TEACHER tasked, via [facility], send discharge paperwork and updated notes, per facility, to [facility]. Secure message sent to to arrange transportation, notify facility and family. Discharge Milestones and Delays Expected Date/Time: 01/11/2023 Disposition: Correction Facility Transport status: No current request Discharge Milestones Completed Place discharge order Complete med reconciliation Case mgmt discharge readiness Expected Discharge History Expected Date/Time Set By Reviewed At 01/11/2023 Paige Rivera DO 01/11/2023 11:29 AM 01/11/2023 Nandini Fonseca RN 01/11/2023 7:49 AM 01/10/2023 Paige Rivera DO 01/10/2023 10:09 AM 01/11/2023 Nandini Fonseca RN 01/10/2023 8:10 AM 01/11/2023 Nandini Fonseca RN 01/09/2023 7:42 AM 01/11/2023 Mario Portillo MD 01/08/2023 5:00 PM 01/11/2023 Mario Portillo MD 01/08/2023 8:03 AM Length of Stay (Days): 0 GMLOS: No GMLOS Documented [facility] 01-11-2023 Note Formatting of this n ote is different from the original. Images from the original note were not included. Care Management Progress Note Patient with discharge orders placed. [facility] tasked, via [employer], send discharge paperwork and updated notes, per facility, to [facility]. Secure message sent to to arrange transportation, notify facility and family. Discharge Milestones and Delays Expected Date/Time: 01/11/2023 Disposition: [facility] Facility Transport status: No current request Discharge Milestones Completed Place discharge order Complete med reconciliation Case mgmt discharge readiness Expected Discharge History Expected Date/Time Set By Reviewed At 01/11/2023 Paige Rivera DO 01/11/2023 11:29 AM 01/11/2023 Nandini Fonseca RN 01/11/2023 7:49 AM 01/10/2023 Paige Rivera DO 01/10/2023 10:09 AM 01/11/2023 Nandini Fonseca RN 01/10/2023 8:10 AM 01/11/2023 Nandini Fonseca RN 01/09/2023 7:42 AM 01/11/2023 Mario Portillo MD 01/08/2023 5:00 PM 01/11/2023 Mario Portillo MD 01/08/2023 8:03 AM Length of Stay (Days): 0 GMLOS: No GMLOS Documented [facility] 01-11-2023 Hospital course Narrative Images from the original note were not included. Hospitalist Discharge Summary Salazar Coyle : 1950 Admit date: 01/08/2023 Discharge date: 01/11/2023 Admitting Physician: Paige Rivera DO Primary Care Physician: Paige Rivera DO Visit Status: observation Code Status: Full Code Discharge Diagnoses: Moderate cervical spinal stenosis Severe right foraminal C4-C5 stenosis Cervical degenerative disc disease Acute neck pain Hx of ESBL UTI PAF Dementia Mild hyperkalemia Lactic acidosis CKD stage 3 DM type 2 with hyperglycemia Debility and weakness, bed-bound Obesity BMI of 51.74 Chronic venous stasis of BL LE with stasis dermatosis Hospital Course: patient admitted for persistent neck pain, positive UA, and debility and weakness. Patient started on ABX for UTI, however this was discontinued per ID abx stewardship committee recommendations. Patient vitals stable. Patient refused any further blood draws while in the hospital. Patient evaluated by ortho surgery, reviewed MRI and CT of cervical spine showing diffuse degenerative disc disease. Mild to moderate central canal stenosis throughout the cervical spine. Severe right foraminal stenosis at C4-C5 level. Patient recommended for increased gabapentin dosing. Patient deemed not a candidate for surgical intervention nor a candidate for epidural steroid injections. Patient recommended for PT/OT by ortho surgery and outpatient follow up with pain management. No further intervention or workup indicated per ortho surgery. Patient refused to work with PT/OT. Patient discharged to SNF in stable condition on 01/11/23. Patient to follow up with pain management and PCP Outpatient in 1-2 weeks. Consults: IP CONSULT TO ORTHOPAEDIC SURGERY IP WOUND CARE NURSE CONSULT TO EVAL Discharge Instructions: Diet: Adult diet Regular; 4 carb choices (60 gm/meal) Activity: as tolerated Recommended Outpatient Tests: Disposition: Patient discharged in stable condition to SNF LABS: CBC: No results for input(s): "WBC", "RBC", "HGB", "HCT", "MCV", "RDW", "PLT" in the last 72 hours. BMP:No results for input(s): "NA", "K", "CL", "CO2", "BUN", "CREATININE", "GLUCOSE", "CALCIUM", "ANIONGAP" in the last 72 hours. LIVER PROFILE:No results for input(s): "AST", "ALT", "BILITOT", "ALKPHOS", "PROT" in the last 72 hours. No lab exists for component: LABALBU PT/INR: No results for input(s): "PROTIME", "INR" in the last 72 hours. CARDIAC ENZYMES: No results for input(s): "TROPONINI" in the last 72 hours. Procalcitonin: No results found for: PROCAL COVID-19 PCR: No results for input(s): "COVID19" in the last 72 hours. Vitals: BP (!) 119/46 Pulse (!) 46 Temp 36 C (96.8 F) (Temporal) Resp 22 Wt (!) 320 lb 6.4 oz (145 kg) SpO2 97% BMI 51.74 kg/m Pulse Ox: SpO2 Av.3 % Min: 97 % Max: 98 % Supplemental O2: General appearance: No apparent distress, appears stated age and cooperative with exam, obese female in NAD Respiratory: diminished BL Cardiovascular: Regular rate and rhythm with no murmur Abdomen: Soft, non-tender, non-distended Skin: BL LE chronic venous stasis changes with stasis dermatosis present. Distal pulses intact in BL LE, 1+ BL LE edema present Neurologic: grossly non-focal. Discharge Medications: Medication List START taking these medications Diclofenac Sodium 1 % gel Commonly known as: Voltaren Apply 4 g topically 2 times daily. Insulin Lispro 100 UNIT/ML solution injection Commonly known as: Humalog Inject 3 Units under the skin in the morning and 3 Units at noon and 3 Units in the evening. Inject with meals. CHANGE how you take these medications apixaban 5 MG tablet Commonly known as: Eliquis What changed: Another medication with the same name was removed. Continue taking this medication, and follow the directions you see here. gabapentin 100 MG capsule Commonly known as: Neurontin Take 2 capsules (200 mg) by mouth 3 times daily. What changed: how much to take CONTINUE taking these medications acetaminophen 325 MG tablet Commonly known as: Tylenol ascorbic acid 250 MG tablet Commonly known as: Vitamin C atorvastatin 20 MG tablet Commonly known as: Lipitor baclofen 5 MG tablet Commonly known as: Lioresal donepezil 10 MG tablet Commonly known as: Aricept ferrous sulfate 325 (65 Fe) MG EC tablet Take 1 tablet (325 mg) by mouth daily (with breakfast). Do not crush, chew, or split. furosemide 40 MG tablet Commonly known as: Lasix insulin glargine 100 UNIT/ML injection Commonly known as: Lantus Inject 10 Units under the skin Nightly. lisinopril 10 MG tablet nystatin [id number] UNIT/GM powder Commonly known as: Mycostatin oxyCODONE 5 MG immediate release capsule Commonly known as: Oxy-IR Take 1 capsule (5 mg) by mouth every 6 hours as needed for severe pain (7-10) for up to 5 days. Oyster Shell Calcium/D 500-5 MG-MCG tablet senna-docusate 8.6-50 MG tablet Commonly known as: Helena-Colace sertraline 50 MG tablet Commonly known as: Zoloft Where to Get Your Medications You can get these medications from any pharmacy Bring a paper prescription for each of these medications Diclofenac Sodium 1 % gel gabapentin 100 MG capsule oxyCODONE 5 MG immediate release capsule Recommended Follow-up: PCP, pain management outpatient in 1-2 weeks @READMISSIONRISK@ Complexity of Follow up: [] Moderate Complexity: follow up within 7-14 calendar days (33237) [x] Severe Complexity: follow up within 7 calendar days (38991) Follow up Testing, Pending results or Referrals at Transitional Care Visit: [x] yes [] no Instructions to MA: Please call patient on day after discharge (must document patient contacted within 2 business days of discharge). Follow up questions for MA: 1. Did you get medications filled and taking them as instructed from discharge? 2. Are you following your discharge instructions from your hospital stay? 3. Please confirm patient is scheduled for a follow up appointment within the above time frame. Signed: Paige Rivera DO [facility] 01/11/2023, 11:30 AM Total time Spent on Discharge: 32 minutes documented in this encounter [facility] 01-11-2023 Hospital Discharge instructions Paige Rivera DO - 01/11/2023 11:05 AM EDT Continuity of Care Form Patient Name: Salazar Coyle : 1950 Admit date: 01/08/2023 Discharge date: Code Status Order: Full Code Advance Directives: Y Admitting Physician: Paige Rivera DO PCP: Paige Rivera DO Discharging Nurse: Discharging Hospital Unit/Room#: B2-248/B2-248 A Discharging Unit Phone Number: Emergency Contact: Extended Emergency Contact Information Primary Emergency Contact: Deidra Vang Mobile Relation: Child Secondary Emergency Contact: Jesus Frank Mobile Relation: Spouse Preferred language: [place] 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 No Past Surgical History: No past surgical history on file. Immunization History: Immunization History Administered Date(s) Administered Covid-19, Moderna Bivalent Booster, (Age 6y-11y) 05/10/2022 Influenza, High Dose Seasonal, Preservative Free 01/07/2018 Influenza, Unspecified 01/31/2017 Pfizer SARS-CoV-2 Vaccination 04/20/2020, 05/11/2020 Pneumococcal Polysaccharide PPSV23 01/31/2017 Active Problems: Medical Problems Problem List * (Principal) Radicular pain in right arm Edema Septic shock (CMS/HCC) (HCC) Inflammatory reaction due to indwelling ureteral stent, initial encounter ([facility]) Ureteropelvic junction calculus Overview Signed 08/07/2022 6:48 PM by Deacon Tariq MD Laser lithotripsy 07/2022 [place] (acute kidney injury) ([facility]) Chronic venous stasis Hypertension Foot ulcer (HCC) Hyperlipemia Bladder spasm Type 2 diabetes mellitus with hyperglycemia ([facility]) Overview Signed 01/14/2022 2:38 PM by Interface, Incoming Problems- [facility] Conversion Important Lab History: HBA1C: 09/2015: >13%, 10/2015: 10.4% Thyroid Function Testing: Renal Function Testin12/2015: Creatinine 0.81 Urine for Microalbumin: Lipid Profile: Liver Profile: Dilated Eye Exam: 09/2015: Hospitalized, Doctor Dmitriy consulted, was on orals at that time, HbA1C was over 13%, insulin was started. 12/2015: First time office visit for Type 2 Diabetes Mellitus management. Known to Doctor Izaguirre through consultation at [facility]. Long acting insulin: Insulin used for this is called: Levemir Bedtime dose 85 units Rapid acting /mealtime insulin: Insulin used for this is called: Novolog Breakfast dose: 40 units Lunchtime dose 40 units Supper dose 40 units States since hospital discharge readings have been significantly above goal. Describes going to Primary Care Provider office and they recently increased insulin to the above doses. I spent a good deal of time with insulin education, after patient provided me a return demonstration, she HAS NOT been injecting insulin at all this whole time. This is likely why she has required less insulin when hospitalized since nurses were administering the insulin. There are two protective caps on the needle, she was only removing the outer one, therefore; has not been actually injecting the insulin. She states she didn't know why it felt like the insulin was running down her skin. States she was never taught the proper way to administer insulin. Denies frequent periods of hypoglycemia. I reviewed its signs and symptoms. Wounds, multiple Degenerative disc disease, cervical Chronic pain Osteoarthrosis PAF (paroxysmal atrial fibrillation) ([facility]) Cognitive decline Morbid obesity with BMI of 60.0-69.9, adult ([facility]) 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 ([facility]) Recurrent UTI Cerebrovascular accident ([facility]) Hyperglycemia Chronic indwelling Jose catheter Overview Signed 01/14/2022 2:39 PM by Interface, Incoming Problems- [facility] Conversion Notes refer to chronic jose going back to 2019 CKD (chronic kidney disease) Asymptomatic bacteriuria Anemia Isolation/Infection: No active isolations No active infections Nurse Assessment: Last Vital Signs: BP (!) 119/46 Pulse (!) 46 Temp 36 C (96.8 F) (Temporal) Resp 22 Wt (!) 145 kg (320 lb 6.4 oz) SpO2 97% BMI 51.74 kg/m Last documented pain score (0-10 scale): Last Weight: Wt Readings from Last 1 Encounters: 01/08/23 (!) 145 kg (320 lb 6.4 oz) Mental Status: {JENN Patient Mental Status:58101} IV Access: {JENN IV Access:68208} Nursing Mobility/ADLs: Walking {JADEN ADL:::"Independent"} Transfer {JADEN ADL:::"Independent"} Bathing {JADEN ADL:::"Independent"} Dressing {JADEN ADL:::"Independent"} Toileting {JADEN ADL:::"Independent"} Feeding {JADEN ADL:::"Independent"} Store Assistant {JADEN ADL:::"Independent"} Med Delivery {yes/no:35810} Wound Care Documentation and Therapy: Wound/Incision 06/09/22 Coccyx (Active) Number of days: 215 Wound/Incision 06/09/22 Venous Ulcer Pretibial Right (Active) Number of days: 215 Wound/Incision 06/09/22 Venous Ulcer Pretibial Left (Active) Number of days: 215 Wound/Incision 06/10/22 Traumatic Leg Left;Proximal;Upper;Posterior (Active) Number of days: 215 Wound/Incision 06/10/22 Amputation site - Toe Anterior;Right (Active) Number of days: 214 Elimination: Continence: Bowel: {yes/no:11547} Bladder: {yes/no:08140} Urinary Catheter: {JENN Urinary Catheter:75041} Colostomy/Ileostomy/Ileal Conduit: {YES / NO:} Date of Last BM: Intake/Output Summary (Last 24 hours) at 01/11/2023 1103 Last data filed at 01/11/2023 0638 Gross per 24 hour Intake -- Output 850 ml Net -850 ml I/O last 3 completed shifts: In: - (0 mL/kg) Out: 1050 (7.2 mL/kg) [Urine:1050 (0.2 mL/kg/hr)] Weight: 145.3 kg Safety Concerns: {JENN Safety Concerns:37739} Impairments/Disabilities: {JENN Impairments/Disabilities:68430} Nutrition Therapy: Current Nutrition Therapy: {JENN Diet List:97860} Routes of Feeding: {routes of feedin} Liquids: {liquid consistency:21257} Daily Fluid Restriction: {daily fluid restriction:07396} Last Modified Barium Swallow with Video (Video Swallowing Test): {done not done:09485} Treatments at the Time of Hospital Discharge: Respiratory Treatments: Oxygen Therapy: {Therapy; copd oxygen:58589} Ventilator: {JENN Ventilator:02301} Rehab Therapies: {GEN THERAPY DISCIPLINE SCAL:6874149} Weight Bearing Status/Restrictions: {POD WEIGHT BEARIN} Other Medical Equipment (for information only, NOT a DME order): {Assistive Devices DME:41508} Other Treatments: Patient's personal belongings (please select all that are sent with patient): {JENN Patient Belongings:02768} RN SIGNATURE: {E-signature:09740} CASE MANAGEMENT/SOCIAL WORK SECTION Inpatient Status Date: 01/08/2023 Readmission Risk Assessment Score: @READMISSIONRISKDETAILS@ Discharging to Facility/ Agency Name: [facility] Address: [address] [place] [address] [place] [address] Dialysis Facility (if applicable) Name: Address: Dialysis Schedule: Phone: Fax: Call Center Coordinator/Occupational Therapist Assistant signature: ICIAN SECTION Prognosis: excellent Condition at Discharge: stable Rehab Potential (if transferring to Rehab): excellent Recommended Labs or Other Treatments After Discharge: follow up with pain management, PT/OT eval Physician Certification: I certify the above information and transfer of Salazar Coyle is necessary for the continuing treatment of the diagnosis listed and that she requires correction facility for less than 30 days. Update Admission H&P: No change in H&P PHYSICIAN SIGNATURE: documented in this encounter [facility] 01-10-2023 Note Formatting of this n ote is different from the original. Images from the original note were not included. Care Management Progress Note Patient remains on 2E for right arm pain. Clinical updates: Patient has a jose, blood cultures no growth for 48 hours. Refused AM labs. Wound care, orthopedic surgery following. Discharge plan: Back to [facility] when medically stable. Discharge obstacles: none noted. TCC to continue to follow. Discharge Milestones and Delays Expected Date/Time: 01/10/[address] discharge order Complete med reconciliation Case mgmt discharge readiness Clinical Stability Diagnsotic Workup Expected Discharge History Expected Date/Time Set By Reviewed At 01/10/2023 Paige Rivera DO 01/10/2023 10:09 AM 01/11/2023 Nandini Fonseca RN 01/10/2023 8:10 AM 01/11/2023 Nandini Fonseca RN 01/09/2023 7:42 AM 01/11/2023 Mario Portillo MD 01/08/2023 5:00 PM 01/11/2023 Mario Portillo MD 01/08/2023 8:03 AM Length of Stay (Days): 0 GMLOS: No GMLOS Documented [facility] 01-10-2023 Note Formatting of this n ote is different from the original. Images from the original note were not included. Care Management Progress Note Patient remains on 2E for right arm pain. Clinical updates: Patient has a jose, blood cultures no growth for 48 hours. Refused AM labs. Wound care, orthopedic surgery following. Discharge plan: Back to [facility] when medically stable. Discharge obstacles: none noted. TCC to continue to follow. Discharge Milestones and Delays Expected Date/Time: 01/10/[address] discharge order Complete med reconciliation Case mgmt discharge readiness Clinical Stability Diagnsotic Workup Expected Discharge History Expected Date/Time Set By Reviewed At 01/10/2023 Paige Rivera DO 01/10/2023 10:09 AM 01/11/2023 Nandini Fonseca RN 01/10/2023 8:10 AM 01/11/2023 Nandini Fonseca RN 01/09/2023 7:42 AM 01/11/2023 Mario Portillo MD 01/08/2023 5:00 PM 01/11/2023 Mario Portillo MD 01/08/2023 8:03 AM Length of Stay (Days): 0 GMLOS: No GMLOS Documented T [facility] 01-10-2023 History of Present illness Narrative Images from the original note were not included. PHYSICAL THERAPY [facility] Initial Evaluation Having reviewed the treatment plan and goals for this patient, I certify that the plan of care below is medically necessary and appropriate. Name/MRN: Salazar Coyle ([id number]) Evaluation Date: 01/10/2023 Date of : 1950 Admission Date: 01/08/2023 3:10 AM Age: 72 y.o. Room/Bed: B2-248/B2-248 A Discharge Recommendation: ECF without PT Equipment Needed: none Assessment IMPRESSION: Pt admitted 01/08 with neck pain, arm pain/numbness. At baseline is at [facility], bedbound and total assist. She attempt long sit with dep x2, per nursing is dep x3-4 for rolling. She demo decreased cervical ROM in all planes, therapist reviewed simple cervical ROM HEP and pt able to complete. She demo poor therapy potential due to bedbound status, will keep on caseload to review cervical HEP, would benefit from continuation of program at [facility] with nursing instruction Diagnosis: cervical DDD/stenosis Performance Deficits /Impairments: Decreased Functional Mobility, Decreased ROM, Decreased Strength, Decreased Safety Awareness, Decreased Endurance, Decreased Sensation, and Decreased Balance Decision Making: Low Complexity Subjective Per RN pt okay for therapy, pt agree to attempt PT trial Pain: Pt denies any current pain. Past Medical History: Past Medical History: Diagnosis Date A-fib ([facility]) ([facility]) Anemia Diabetes ([facility]) Lymphedema Obesity Past Surgical History: No past surgical history on file. Admission Diagnosis: Patient Active Problem List Diagnosis Date Noted Edema 04/11/2021 Radicular pain in right arm 01/08/2023 Ureteropelvic junction calculus 08/07/2022 WHITLEY (acute kidney injury) ([facility]) 08/07/2022 Chronic venous stasis 08/07/2022 Inflammatory reaction due to indwelling ureteral stent, initial encounter ([facility]) 08/02/2022 Septic shock ([facility]) ([facility]) 06/09/2022 Hypertension 04/15/2021 Hyperlipemia 04/15/2021 Cognitive decline 04/15/2021 Morbid obesity with BMI of 60.0-69.9, adult ([facility]) 04/15/2021 Chronic indwelling Jose catheter 04/15/2021 Foot ulcer ([facility]) 04/13/2021 Wounds, multiple 04/11/2021 PAF (paroxysmal atrial fibrillation) ([facility]) 04/11/2021 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 ([facility]) 04/11/2021 Hyperglycemia 04/11/2021 CKD (chronic kidney disease) 04/11/2021 Asymptomatic bacteriuria 04/11/2021 Anemia 04/11/2021 Bladder spasm 03/08/2021 Type 2 diabetes mellitus with hyperglycemia (HCC) 03/08/2021 Degenerative disc disease, cervical 03/08/2021 Chronic pain 03/08/2021 Osteoarthrosis 03/08/2021 Recurrent UTI 03/08/2021 Cerebrovascular accident (HCC) 03/08/2021 Medical Precautions: No active isolations Proper PPE donned/doffed in accordance with facility standards. Fall Risk: Luna Fall Risk Score: 35 (Medium Risk) Precautions/Restrictions: N/A Family/Caregiver Present: none Overall Cognitive Status: Exceptions - Arousal/alertness: WFL - Following commands: 1 step commands with increased cues - Safety judgement: decreased insight to safety - Insights: poor insight to safety - Initiation: require cues - Sequencing: require cues Overall Orientation Status: Oriented x4 Vision: no visual deficits Hearing: normal Social/Functional History Patient admitted from SNF. Assistive Equipment: none Prior Level of Function ADL Assistance: dependent Ambulation Assistance: Non-Ambulatory Transfer Assistance: dependent Objective Lower Extremity Assessment AROM: Impaired: BLE ankle with no AROM, in PF and inversion, unable to flex bilat knee; appears in RLE internal tibial rotation; LLE in external tibial rotation. She demo gross mip movement in LLE but unable to demo vs gravity, no movement noted in RLE PROM: Impaired: ankle PF contracture, BLE extension contractures (knees) Strength: Exceptions: see above Sensation: Impaired: BUE numbness Upper Extremity: see OT note Bed Mobility: Attempt long sitting with dependent x2, is able to minimally clear shoulders, demo increased pain. Per RN is dependent x3-4 to roll. Balance Posture: poor Sitting - Static: unable Sitting - Dynamic: unable Standing - Static: unable Standing - Dynamic: unable Transfers Unable at baseline Ambulation Unable to baseline Exercises Exercises Comments: Demo and instruct pt in cervical flex/ext; rotation, and side bed exercises; She complete 10 reps flex/ext; R,L; and SB R, L. 1 set 10 reps cervical retraction; 1 set 10 reps scapular retraction. Pt limited due to inability to lift shoulders/head from bed but does demo relative retraction in limited range. She demo very decreased cervical ROM in all planes. Wrote HEP and educated on frequency Outcome Measures AM-PAC How much HELP from another person do you currently need Turning from your back to your side while in a flat bed without using bedrails?: Total Moving from lying on your back to sitting on the side of a flat bed without using bedrails?: Total Moving to and from a bed to a chair (including a wheelchair)?: Total Standing up from a chair using your arms (wheelchair or bedside chair)?: Total Walking in a hospital room?: Total Stair climbing assessed?: No AM-PAC Inpatient Mobility Raw Score (No Stairs) : 5 Plan Pt with poor therapy potential due to bedbound status. I did give cervical HEP to address neck pain, will keep on caseload for 1 session for follow-up, would encourage continuation cervical ROM/there ex at ECF. Safety/Education Safety Safety Devices in place: All fall risk precautions in place, call light within reach, left in bed, patient at risk for falls, and nurse notified Restraints: No Education Education Given To: patient Education Provided: PT Role, PT Goals, Plan of Care, Home Exercise Program, Discharge Recommendations, and Benefits of Increasing Activity Education Method: Demonstration and Verbal Barriers to Learning: None Education Outcome: Verbalized Understanding, Demonstrated Understanding, and Continued Education Needed Goals Patient Stated Goal: decrease neck pain Encounter Problems Encounter Problems (Active) PT Misc Misc: Pt will demo cervical ROM HEP IND to decrease pain and promote function Start: 01/10/23 Expected End: 01/17/23 Therapy Time Individual Co-treatment Time In 1221 (co-eval with OT) Time Out 1242 Minutes 21 Timed Code Treatment Minutes: 8 Minutes (ther ex x1) Josr Sheppard PT Patient's Physical Therapy Plan of Care supervision is transferred to a [facility] Physical Therapist. Goals and/or treatment plan was established in collaboration with patient/family/other representatives. Occupational Therapy OCCUPATIONAL THERAPY [facility] Initial Evaluation Name/MRN: Salazar Coyle ([id number]) Evaluation Date: 01/10/2023 Date of : 1950 Admission Date: 01/08/2023 3:10 AM Age: 72 y.o. Room/Bed: B2-248/B2-248 A Discharge Recommendation: ECF without OT Equipment Needed: none Having reviewed the treatment plan and goals for this patient, I certify that the plan of care below is medically necessary and appropriate. Assessment IMPRESSION: Pt admitted 01/08 with c/o neck pain and radicular pain in R arm, pt found to have Cervical spine mild to moderate central canal stenosis and severe right foraminal C4-5 stenosis and Cervical DDD. Pt is from SNF, is bedbound at baseline. Pt is DEPx2 for attempted long sit, DEP x2-3 for rolling with nursing, DEP for ADLs. OT eval only completed with PT this date, consult with evaluating PT. Pt to remain on PT caseload for cervical spine exercises. Pt is a baseline function for ADLs with acute OT services not warranted at this time. OT eval only completed. Performance Deficits /Impairments: Decreased Functional Mobility, Decreased ADL status, Decreased ROM, Decreased Strength, Decreased Sensation, and Decreased Balance Prognosis: Poor Decision Making: Low Complexity Subjective Pt presents supine in bed, agreeable to therapy eval. Okay to see per RN. PT/OT co-eval due to increased assist required, ortho requesting attempt at eval today. BLEs noted with redness, scaly skin, RLE contracture at ankle with pt unable to move, internally roated, LLE able to move minimally, not at isloated joint, external rotation noted. Pt left supine in bed with PT for at end of session. Pain: reports neck pain, bilat BUE pain, not formally rated Past Medical History: Past Medical History: Diagnosis Date A-fib ([facility]) ([facility]) Anemia Diabetes ([facility]) Lymphedema Obesity Past Surgical History: No past surgical history on file. Admission Diagnosis: Patient Active Problem List Diagnosis Date Noted Edema 04/11/2021 Radicular pain in right arm 01/08/2023 Ureteropelvic junction calculus 08/07/2022 WHITLEY (acute kidney injury) ([facility]) 08/07/2022 Chronic venous stasis 08/07/2022 Inflammatory reaction due to indwelling ureteral stent, initial encounter ([facility]) 08/02/2022 Septic shock ([facility]) ([facility]) 06/09/2022 Hypertension 04/15/2021 Hyperlipemia 04/15/2021 Cognitive decline 04/15/2021 Morbid obesity with BMI of 60.0-69.9, adult ([facility]) 04/15/2021 Chronic indwelling Jose catheter 04/15/2021 Foot ulcer ([facility]) 04/13/2021 Wounds, multiple 04/11/2021 PAF (paroxysmal atrial fibrillation) ([facility]) 04/11/2021 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 ([facility]) 04/11/2021 Hyperglycemia 04/11/2021 CKD (chronic kidney disease) 04/11/2021 Asymptomatic bacteriuria 04/11/2021 Anemia 04/11/2021 Bladder spasm 03/08/2021 Type 2 diabetes mellitus with hyperglycemia ([facility]) 03/08/2021 Degenerative disc disease, cervical 03/08/2021 Chronic pain 03/08/2021 Osteoarthrosis 03/08/2021 Recurrent UTI 03/08/2021 Cerebrovascular accident ([facility]) 03/08/2021 Medical Precautions: No active isolations Proper PPE donned/doffed in accordance with facility standards. Fall Risk: Luna Fall Risk Score: 35 (Medium Risk) Precautions/Restrictions: N/A Family/Caregiver Present: none Overall Cognitive Status: WFL Overall Orientation Status: Oriented x4 Social/Functional History Patient admitted from SNF. Assistive Equipment: none Prior Level of Function ADL Assistance: Needs Assist Ambulation Assistance: Needs Assistance Non-Ambulatory Transfer Assistance: bed bound Objective ADLs No formal ADLs completed this session, pt is DEP at bed level for ADLs. Upper Extremity Assessment AROM: Impaired: decreased shoulder flexion, approx 50 degrees with pt supine, elbow/wrist hand WFL PROM: Not assessed this session Strength: Exceptions: 3-/5 proximally, camp dining room attendant strength decreased but symmetrical 3/5 Tremors: no Coordination: Exceptions: RUE impaired finger opposition noted, LUE WFL Tone: Not assessed this session Sensation: Impaired: Reports numbness of entire RUE, numbness/tingling of LUE. Vision: no visual deficits Hearing: normal Hand dominance: Right Bed Mobility Attempted long sit with DEPx2, unable to clear shoulders. Further bed mobility not attempted due to BLE deficits. Per nursing, pt is DEP x2-3 to roll with pt yelling out in pain. Transfers/Functional Mobility Not attempted, pt bed bound at baseline. Device(s) used: NA AM-PAC AM-PAC Inpatient Daily Activity Raw Score: 11 ADL Inpatient CMS G-Code Modifier: CL Plan No skilled acute OT indicated at this time. Please reconsult should changes occur. Safety/Education Safety Safety Devices in place: All fall risk precautions in place, call light within reach, left in bed, patient at risk for falls, nurse notified, and no alarms engaged upon entry Restraints: N/A Education Education Given To: patient Education Provided: OT Role and Discharge Recommendations Education Method: Verbal Barriers to Learning: None Education Outcome: Verbalized Understanding Goals Patient Stated Goal: no acute OT goals established/warranted at this time. Therapy Time Individual Co-treatment Time In 1221 (co-eval with PT due to increased assist required) Time Out 1236 Minutes 15 Dalia Nava OT Patient's Occupational Therapy Plan of Care supervision is transferred to a [facility] Services Occupational Therapist. Goals and/or treatment plan was established in collaboration with patient/family/other representatives. Images from the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 on medication and therapy. I ordered PT and OT however record states she has refused therapies in the past. Thank you for the consult we will follow with you. documented in this encounter [facility] 01-09-2023 Note Formatting of this n ote is different from the original. Images from the original note were not included. Care Management Progress Note TRANSITIONAL CARE DAILY NOTE/UPDATES: Patient remains on 2E for right arm pain. Clinical updates: Patient has a jose, pending blood cultures. Refused AM labs. Wound care, orthopedic surgery following. Discharge plan: Back to [facility] when medically stable. Discharge obstacles: none noted. TCC to continue to follow. Discharge Milestones and Delays Expected Date/Time: 01/11/[address] discharge order Complete med reconciliation Case mgmt discharge readiness Clinical Stability Diagnsotic Workup Expected Discharge History Expected Date/Time Set By Reviewed At 01/11/2023 Nandini Fonseca RN 01/09/2023 7:42 AM 01/11/2023 Mario Portillo MD 01/08/2023 5:00 PM 01/11/2023 Mario Portillo MD 01/08/2023 8:03 AM Length of Stay (Days): 1 GMLOS: No GMLOS Documented [facility] 01-09-2023 Note Formatting of this n ote is different from the original. Images from the original note were not included. Care Management Progress Note TRANSITIONAL CARE DAILY NOTE/UPDATES: Patient remains on 2E for right arm pain. Clinical updates: Patient has a jose, pending blood cultures. Refused AM labs. Wound care, orthopedic surgery following. Discharge plan: Back to [facility] when medically stable. Discharge obstacles: none noted. TCC to continue to follow. Discharge Milestones and Delays Expected Date/Time: 01/11/[address] discharge order Complete med reconciliation Case mgmt discharge readiness Clinical Stability Diagnsotic Workup Expected Discharge History Expected Date/Time Set By Reviewed At 01/11/2023 Nandini Fonseca RN 01/09/2023 7:42 AM 01/11/2023 Mario Portillo MD 01/08/2023 5:00 PM 01/11/2023 Mario Portillo MD 01/08/2023 8:03 AM Length of Stay (Days): 1 GMLOS: No GMLOS Documented [facility] 01-09-2023 Nurse Note Patient transferred to [address] [place] [address] bed A around 2009. This RN oriented patient to room and attempted to place residential monitor on patient per doctors orders and for a potassium level of 5.2. Patient refused heart monitor multiple times and for multiple other members of the nursing staff. When attempting to show the patient where the leads would be put on and how, the patient physically began to swat nursing staff away and yell. When questioned as to why the monitor could not be placed patient just stated "no", or "I don't want it" without further clarification. Throughout this time patient was educated on the importance of the residential monitor and why it was ordered. Patient also was attempting to refuse nursing staff to clean them and change bedding. Patient appears to be in extreme pain especially in the lower extremities and neck whenever they are moved in bed. This RN was also unable to perform a complete skin assessment due to the patients pain and refusal. Patient refused nursing staff to remove boots or socks and would yell "Don't touch my legs". Later with additional staff bilateral lower extremities were able to be examined with the R foot appearing to be a drop foot and a missing 5th toe and the left in a normal position. Both legs appeared to have cellulitis red, crusted, flaky, with different brown colored bruises covering them. Both pulses palpable. Wound care consult placed. Additional assessments like the coccyx and sacrum and head were not fully assessed due patient pain and agitation. Patient also refused Q2 turns throughout the night. 0232: Patient refused morning lab draws from both phlebotomy and this RN 0528: Patient changed and cleaned, appeared to be impacted with stool in the rectum [facility] 01-09-2023 Nurse Note Patient transferred to [address] [place] [address] bed A around 2009. This RN oriented patient to room and attempted to place residential monitor on patient per doctors orders and for a potassium level of 5.2. Patient refused heart monitor multiple times and for multiple other members of the nursing staff. When attempting to show the patient where the leads would be put on and how, the patient physically began to swat nursing staff away and yell. When questioned as to why the monitor could not be placed patient just stated "no", or "I don't want it" without further clarification. Throughout this time patient was educated on the importance of the residential monitor and why it was ordered. Patient also was attempting to refuse nursing staff to clean them and change bedding. Patient appears to be in extreme pain especially in the lower extremities and neck whenever they are moved in bed. This RN was also unable to perform a complete skin assessment due to the patients pain and refusal. Patient refused nursing staff to remove boots or socks and would yell "Don't touch my legs". Later with additional staff bilateral lower extremities were able to be examined with the R foot appearing to be a drop foot and a missing 5th toe and the left in a normal position. Both legs appeared to have cellulitis red, crusted, flaky, with different brown colored bruises covering them. Both pulses palpable. Wound care consult placed. Additional assessments like the coccyx and sacrum and head were not fully assessed due patient pain and agitation. Patient also refused Q2 turns throughout the night. 0232: Patient refused morning lab draws from both phlebotomy and this RN 0528: Patient changed and cleaned, appeared to be impacted with stool in the rectum Upon shift report, this RN noticed the patient's potassium result of 5.2. After reading through the patient's chart, telemetry monitoring was supposed to be an initial order for this patient. Patient is now being transferred to room 249-1 on [address] East. Patient arrived to room 147 from ER. documented in this encounter [facility] 01-08-2023 Nurse Note Upon shift report, this RN noticed the patient's potassium result of 5.2. After reading through the patient's chart, telemetry monitoring was supposed to be an initial order for this patient. Patient is now being transferred to room 249-1 on [address]. [facility] 01-08-2023 Nurse Note Patient arrived to room 147 from ER. [facility] 01-08-2023 Note Formatting of this n ote might be different from the original. Care Managment Initial Assessment Date: 01/08/2023 Patient Name: Salazar Coyle : 1950 Patient Information Source of Information: Patient Registered Nurse Maternity Name/Contact Information: Spoke with Jesus on the phone Cognition/Language: Confused at baseline Permission given to speak with patient career services representative/caregiver as indicated: Yes Confirmation of Payer with patient/family: Yes Payer Name: Bk [facility] [place]: No Confirmation of Primary Care Physician: Confirmed PCP Name: Dr Paige Rivera Seen in last 2 years?: Yes Primary Caregiver: (Per , patient to return to [facility]) If assistance needed, confirmed caregiver ready, willing and able to care for patient at discharge: Yes Confirmed with: [facility] Living Arrangements Current Residence: Number of Floors Number of Entry Steps: Bed/Bath Levels: Facility: Residential/Residental Care Facility Name: [facility] Plan to Return: Yes Lives with: ([facility]) Support Systems: Spouse/significant other, Children, Family members, Friends/neighbors ([facility] staff and residents) Activities of Daily Living Ambulation: Total Care Bathing/Dressing: Total Care Elimination/Continence/Toileting: Total Care Feeding: Total Care Who Assists with Activities of Daily Living: [facility] staff Instrumental Activities of Daily Living Prescription Coverage: Yes Pharmacy Used: [facility] pharmacy Medication Management: ([facility] nurses manage medications) Transportation/Shopping: Assistance Provider Transportation/Shopping Assistance Provider Name: Family and ECF provide all of patient's necessities Transportation Mode: Needs Assistance with Transportation at Discharge: Yes (TERMINAL OPERATOR to set up return transportation to [facility]) Meal Preparation: Assistance Provider Meal Prep Assistance Provider Name: [facility] staff Laundry/Cleaning: Assistance Provider Laundry/Cleaning Assistance Provider Name: [facility] staff Finances/Bill Paying: Assistance Provider Finances/Bill Payer Assistance Provider Name: Jesus Communication: Independent Types of Care Services/Equipment Utilized Care Services: Dialysis Type: Durable Medical Equipment: Wheelchair (standard or power), Hospital Bed, Raheem Lift Patient's Goal/Discharge Plan Patient expects to be discharged to: Return to [facility] Discharge Planning Actions: Continue to follow Patient's Choice Rights and [employer] and Collaborative Relationships Disclosed as Indicated for Post-Acute Care: Interdisciplinary Team Engagement: PT/OT Social Work Referral for: Additional Information: IA completed over the phone with Jesus. Introduced self and role. Patient is admitted (ED roomed) for severe neck and right arm pain. Found to have cystitis on admission. Patient lives in [facility], TERMINAL OPERATOR to set up return transport to [facility]. Sees facility Fashion Intern Dr Paige Rivera (PCP) routinely. Has insurance and prescription coverage, uses [facility]. Jesus denies any financial difficulties. Plan to return to [facility] when medically stable, confirmed that patient is a Medicaid bed hold in [facility]. Jesus verbalizes understanding and is in agreement with POC. Nancy Gastelum RN [facility] 01-08-2023 Note Formatting of this n ote might be different from the original. Care Managment Initial Assessment Date: 01/08/2023 Patient Name: Salazar Coyle : 1950 Patient Information Source of Information: Patient Registered Nurse Maternity Name/Contact Information: Spoke with Jesus on the phone Cognition/Language: Confused at baseline Permission given to speak with patient career services representative/caregiver as indicated: Yes Confirmation of Payer with patient/family: Yes Payer Name: [employer] [facility] : No Confirmation of Primary Care Physician: Confirmed PCP Name: Dr Paige Rivera Seen in last 2 years?: Yes Primary Caregiver: (Per , patient to return to [facility]) If assistance needed, confirmed caregiver ready, willing and able to care for patient at discharge: Yes Confirmed with: [facility] Living Arrangements Current Residence: Number of Floors Number of Entry Steps: Bed/Bath Levels: Facility: Residential/Residental Care Facility Name: [facility] Plan to Return: Yes Lives with: ([facility]) Support Systems: Spouse/significant other, Children, Family members, Friends/neighbors ([facility] staff and residents) Activities of Daily Living Ambulation: Total Care Bathing/Dressing: Total Care Elimination/Continence/Toileting: Total Care Feeding: Total Care Who Assists with Activities of Daily Living: [facility] staff Instrumental Activities of Daily Living Prescription Coverage: Yes Pharmacy Used: [facility] pharmacy Medication Management: ([facility] nurses manage medications) Transportation/Shopping: Assistance Provider Transportation/Shopping Assistance Provider Name: Family and ECF provide all of patient's necessities Transportation Mode: Needs Assistance with Transportation at Discharge: Yes (TERMINAL OPERATOR to set up return transportation to [facility]) Meal Preparation: Assistance Provider Meal Prep Assistance Provider Name: [facility] staff Laundry/Cleaning: Assistance Provider Laundry/Cleaning Assistance Provider Name: [facility] staff Finances/Bill Paying: Assistance Provider Finances/Bill Payer Assistance Provider Name: Jesus Communication: Independent Types of Care Services/Equipment Utilized Care Services: Dialysis Type: Durable Medical Equipment: Wheelchair (standard or power), Hospital Bed, Raheem Lift Patient's Goal/Discharge Plan Patient expects to be discharged to: Return to [facility] Discharge Planning Actions: Continue to follow Patient's Choice Rights and [employer] and Collaborative Relationships Disclosed as Indicated for Post-Acute Care: Interdisciplinary Team Engagement: PT/OT Social Work Referral for: Additional Information: IA completed over the phone with Jesus. Introduced self and role. Patient is admitted (ED roomed) for severe neck and right arm pain. Found to have cystitis on admission. Patient lives in [facility] to set up return transport to [facility]. Sees facility Fashion Intern Dr Paige Rivera (PCP) routinely. Has insurance and prescription coverage, uses [facility]. Jesus denies any financial difficulties. Plan to return to [facility] when medically stable, confirmed that patient is a Medicaid bed hold in [facility]. Jesus verbalizes understanding and is in agreement with POC. Nancy Gastelum RN [facility] 01-08-2023 Emergency department Note After receiving permission from pt to speak to granddaughter Thelma, gave pt update Christina Brennan RN 01/08/23 1100 [facility] 01-08-2023 Emergency department Note After receiving permission from pt to speak to granddaughter Thelma, gave pt update Christina Brennan RN 01/08/23 1100 Changed urinary catheter with the help from MATHEUS Powers RN Kortney, RN Heather, Nursing Senior Hydrogeologist. Complete bed change of performed on th patient. Dirt was wiped from inside her leg folds. Multiple wounds noted, see media images. Warm blankets provided, patient resting comfortably. Michelle Mott RN 01/08/23 0628 Attempted IV 2x. Med student performing ultra sound guided IV with Dr. Vee at bedside. Michelle Mott RN 01/08/[address] Champion spoke with the nursing facility and states that the nursing facility was planning to change the urinary catheter today and did not have time to and that patient wanted to be brought to the ED due to the neck pain, and that is why they sent her here. Michelle Mott RN 01/08/23 0406 Emergency Department Encounter [facility] ED Patient: Salazar Coyle : 1950 Date of Evaluation: 01/08/2023 ED Provider: Fahad Champion DO Chief Complaint Chief Complaint Patient presents with Neck Pain Arm Pain Leg Pain MILLE LACS Salazar Coyle is a 72 y.o. female who presents to the emergency department complaining of neck pain. Patient reports that she has had neck pain and right upper extremity numbness and tingling developing for over 1 week. Is very painful. She believes she has osteoarthritis. Family at bedside states that this has been a progressive issue. Patient is bedbound for several years. She is noncompliant with occupational therapy and physical therapy. Family requested MRI but nursing facility told patient that insurance would not approve this unless patient went to the emergency department. Patient has history of previous urinary tract infections, Additional history obtained from : n/a Barriers to obtaining history from patient: n/a ROS: Review of Systems completed as follows: (Bold = positive, Not bold = negative) GENERAL: fevers, chills, malaise ENT: runny nose, congestion, sore throat, ear pain NEURO: weakness, numbness of tingling, headache CARDIOVASCULAR: chest pain, syncope PULMONARY: shortness of breath, cough, wheezing GASTROINTESTINAL: nausea, vomiting, abdominal pain, diarrhea, constipation, MUSCULOSKELETAL: pain GENITAL/URINARY: dysuria, hematuria, increased urinary frequency, hesitancy, flank pain SKIN: rash, lesions, wound Past History Past Medical History: Diagnosis Date A-fib (CMS/HCC) (HCC) Anemia Diabetes (HCC) Lymphedema Obesity No past surgical history on file. Social History Socioeconomic History Marital status: Tobacco Use Smoking status: Never Smokeless tobacco: Never Vaping Use Vaping Use: Never used Substance and Sexual Activity Alcohol use: Never Drug use: Never Sexual activity: Not Currently I have reviewed the history above as provided by nursing notes. Medications/Allergies Previous Medications APIXABAN (ELIQUIS) 5 MG TABLET Take 1 tablet (5 mg) by mouth 2 times daily for 8 doses. ASCORBIC ACID (VITAMIN C) 250 MG TABLET Take 250 mg by mouth daily. ATORVASTATIN (LIPITOR) 20 MG TABLET Take 20 mg by mouth daily. BACLOFEN (LIORESAL) 5 MG TABLET Take 1 tablet by mouth daily. CALCIUM CARBONATE-VITAMIN D (OYSTER SHELL CALCIUM/D) 500-5 MG-MCG TABLET Take 1 tablet by mouth daily. DONEPEZIL (ARICEPT) 10 MG TABLET Take 10 mg by mouth Nightly. FERROUS SULFATE 325 (65 FE) MG EC TABLET Take 1 tablet (325 mg) by mouth daily (with breakfast). Do not crush, chew, or split. FUROSEMIDE (LASIX) 40 MG TABLET Take 40 mg by mouth in the morning and 40 mg in the evening. INSULIN GLARGINE (LANTUS) 100 UNIT/ML INJECTION Inject 10 Units under the skin Nightly. INSULIN LISPRO (HUMALOG) 100 UNIT/ML SOLUTION INJECTION Inject 3 Units under the skin in the morning and 3 Units at noon and 3 Units in the evening. Inject with meals. LISINOPRIL 10 MG TABLET Take 10 mg by mouth daily. NYSTATIN (MYCOSTATIN) 492610 UNIT/GM POWDER SENNA-DOCUSATE (HELENA-COLACE) 8.6-50 MG TABLET Take 100 tablets by mouth Every 24 hours. SERTRALINE (ZOLOFT) 50 MG TABLET Take 50 mg by mouth daily. Allergies Allergen Reactions Ertapenem Patient tolerated July 2022 I have reviewed the history above as provided by nursing notes. Physical Exam ED Triage Vitals [01/08/23 0325] Temp Heart Rate Resp BP 36.6 C (97.8 F) 65 22 (!) 152/61 SpO2 Temp src Heart Rate Source Patient Position 98 % -- Monitor -- BP Location FiO2 (%) -- -- GENERAL: Chronically debilitated patient laying comfortably in the bed. EYES: PERRL. No scleral icterus or orbital trauma noted. HEENT: Mucous membranes moist. Nares patent without copious rhinorrhea. NECK: No palpable midline tenderness to palpation. No palpable bony step-off. There is bilateral paraspinal tenderness exquisite to palpation. LUNGS: Lungs are clear to auscultation, without any respiratory distress. CARDIAC: Rhythm is regular. No murmur appreciated ABDOMEN: Morbidly obese abdomen. Nontender, soft, with no obvious masses, and no peritoneal signs. EXTREMITIES: Global weakness in upper and lower extremities. SKIN: Good color, with no significant rashes. No pallor. NEURO: No obvious neurological deficits, she has global weakness throughout. She has difficulty raising her arms in the air and can wiggle her toes without being able to raise her legs against gravity for more than 1 second. She has right-sided upper extremity paresthesias to palpation throughout. Diagnostics Labs: Results for orders placed or performed during the hospital encounter of 01/08/23 Complete Urinalysis Result Value Ref Range Color, Urine Colorless Lt. Yellow Clarity, Urine Turbid (A) Clear pH, Urine 7.5 5.0 - 8.0 pH Leukocytes, Urine 500 (A) Negative Jimenez/uL Nitrite, Urine Negative Negative Protein, Urine 50 (A) Negative mg/dL Glucose, Urine Normal Normal (<70) mg/dL Bilirubin, Urine Negative Negative mg/dL Ketones, Urine Negative Negative mg/dL Urobilinogen, Urine Normal Normal (0-1) mg/dL Blood, Urine >1.0 (A) Negative mg/dL RBC, Urine 51-100 (A) 0 - 2 /HPF WBC, Urine 26-50 (A) 0 - 5 /HPF Squamous Epithelial, Urine 0-2 3 - 5 /HPF Bacteria, Urine Moderate (A) Negative /HPF Mucus, Urine Few Negative /LPF WBC Clumps, Urine Few (A) Negative /HPF SPECIFIC GRAVITY OF URINE (NUMERIC) 1.010 1.005 - 1.030 CBC auto differential Result Value Ref Range Auto WBC 6.1 3.6 - 10.7 10*3/uL RBC 3.47 (L) 3.8 - 5.20 10*6/uL Hemoglobin 11.5 (L) 11.7 - 16.0 g/dL Hematocrit 34.0 (L) 35.0 - 47.0 % MCV 98.1 (H) 80.0 - 98.0 fL MCH 33.0 26.0 - 34.0 pg MCHC 33.6 32.0 - 36.0 % RDW 14.6 (H) 11.5 - 14.5 % Platelets 173 140 - 440 10*3/uL MPV 9.3 7.4 - 12.4 fL nRBC 0.1 0.0 - 2.0 /100 WBCs Neutrophils Relative 56.1 40.0 - 80.0 % Lymphocytes Relative 32.6 20.0 - 40.0 % Monocytes Relative 6.7 2.0 - 10.0 % Eosinophils Relative 4.1 1.0 - 6.0 % Basophils Relative 0.5 0.0 - 2.0 % Neutrophils Absolute 3.4 1.8 - 7.0 10*3/uL Lymphocytes Absolute 2.0 1.0 - 4.3 10*3/uL Monocytes Absolute 0.4 0.0 - 0.8 10*3/uL Eosinophils Absolute 0.2 0.0 - 0.5 10*3/uL Basophils Absolute 0.0 0.0 - 0.2 10*3/uL Comprehensive metabolic panel Result Value Ref Range SODIUM 138 135 - 145 mmol/L POTASSIUM 5.2 (H) 3.5 - 5.1 mmol/L CHLORIDE 99 98 - 107 mmol/L CARBON DIOXIDE 32 (H) 22 - 30 mmol/L ANION GAP 7 3 - 13 mmol/L UREA NITROGEN 53 (H) 7 - 17 mg/dL CREATININE 1.22 (H) 0.52 - 1.04 mg/dL GLUCOSE 243 (H) 70 - 100 mg/dL CALCIUM 8.6 8.4 - 10.4 mg/dL AST (SGOT) 29 15 - 46 U/L ALT 20 0 - 34 U/L ALKALINE PHOSPHATASE 93 38 - 126 U/L ALBUMIN 3.6 3.5 - 5.0 g/dL BILIRUBIN, TOTAL 0.4 0.2 - 1.3 mg/dL TOTAL PROTEIN 7.4 6.3 - 8.2 g/dL eGFR 46.7 (L) >60.0 mL/min/1.73m*2 Lactic acid with reflex Result Value Ref Range LACTIC ACID 2.2 (H) 0.7 - 2.0 mmol/L Radiographs: CT cervical spine wo IV contrast Final Result 1. No acute abnormality identified throughout the cervical spine. 2. Cervical spondylosis particularly from C4-C5 through C6-C7 3. MRI would probably be indicated for further evaluation Report Dictated on Electronically Signed By: Ramone Beckett MD Electronically Signed Date/Time: 01/08/2023 5:23 AM EDT EMERGENCY DEPARTMENT COURSE and DIFFERENTIAL DIAGNOSIS/MDM: Vitals: Vitals: 01/08/23 0325 01/08/23 0427 01/08/23 0603 01/08/23 0707 BP: (!) 152/61 (!) 142/53 113/81 (!) 121/48 Pulse: 65 68 69 65 Resp: 22 16 16 16 Temp: 36.6 C (97.8 F) SpO2: 98% 96% 96% 96% Weight: (!) 145 kg (320 lb 6.4 oz) The patient presented with a chief complaint of neck pain. Vital signs reviewed. On exam, patient is morbidly obese, bedbound. She appears chronically weak and her symptoms although bothersome sound extremely chronic as she has been on oxycodone for greater than 10 years. However, she reports new neck pain and right upper extremity symptoms for the last 10 days. She states she has not had adequate pain control and she came to the emergency department for this reason. I did call and speak to the nursing staff at patient's nursing facility. She been complaining of pain since dinnertime and overnight, they called the physician who requested an x-ray of the neck to be performed however patient was adamant that she wanted to be transferred to the emergency department for evaluation. They state that the symptoms are not new and have been chronic for some time. Differential considered includes radicular symptoms from the neck, less likely cervical fracture given lack of trauma and mobility. Low concern for acute spinal cord compression. Patient has chronic Jose catheter related to neurogenic bladder. She is nonambulatory. I do not feel that emergent MRI would be required for this time as I also believe that patient would be at extremely poor surgical candidate. However does help assist with diagnostics I will order a CT scan of the cervical spine without contrast. Patient was noted to have a Jose catheter that appeared purulent, somewhat bloody. Nursing staff and had called stated they had plans to exchange the catheter as there had been an odor. I asked nursing staff to perform this and I also checked blood work. I personally placed ultrasound-guided IV due to poor access. Patient's blood work did not reveal leukocytosis. Her kidney function is within normal limits. Her urinalysis after replacement of her Jose catheter did show blood and white blood cells concerning for UTI. CT scan showed multiple areas of chronic degenerative changes but no acute findings. Patient was treated with IV morphine and her symptoms were mildly improved. Given patient's strong history of ESBL bacteriuria and sepsis previously I will treat her in the hospital with IV meropenem. I will suggest that she see pain management for her chronic symptoms and I considered transfer [facility] for spine evaluation however again, I feel patient is an extremely poor surgical candidate and would not be a candidate for any acute intervention. Diagnoses as of 01/08/23725 Radicular pain in right arm Neck muscle spasm Cystitis Diagnostic tests considered but not performed: Considered CT scan of the abdomen pelvis however patient is not demonstrating any signs or symptoms that would suggest an intra-abdominal infection, kidney stone. Although she does have symptoms of urinary tract infection she has no abdominal pain, flank pain and is not septic appearing on vital sign evaluation. External records reviewed: Reviewed discharge summary from 08/02/2022 where patient had been admitted due to sepsis secondary to UPJ calculus and had a stent placed. She had been discharged to her nursing facility however she was admitted for UPJ calculus lithotripsy and stent exchange due to poor outpatient follow-up. She was treated with meropenem for antibiotics. Diagnostics interpreted by me: Personally reviewed CT scan of the neck as above Chronic conditions impacting care: Chronic renal issues including urolithiasis, chronic pain syndrome, type 2 diabetes, hypertension, hyperlipidemia ED Medications managed: Medications meropenem (Merrem) IVPB 2000 mg in 100 mL NS (compounded premix) (has no administration in time range) morphine injection 4 mg (4 mg IntraVENous Given 01/08/23423) ondansetron (Zofran) injection 4 mg (4 mg IntraVENous Given 01/08/23423) sodium chloride 0.9 % bolus 500 mL (500 mL IntraVENous New Bag 01/08/23612) morphine injection 2 mg (2 mg IntraVENous Given 01/08/2332) Patients symptoms are consistent with sepsis, severe sepsis or septic shock (if yes, use ".sepsiscoremeasure") -although patient does have a mild lactic acid elevation of 2.2, she does not meet SIRS criteria as she has normal heart rate, normal temperature, normal respiratory rate and no leukocytosis. She will be treated for infection but she is not meeting sepsis criteria at this time. Final Impression 1. Radicular pain in right arm 2. Neck muscle spasm 3. Cystitis DISPOSITION admit Comment: Please note this report has been produced using speech recognition software and may contain errors related to that system including errors in grammar, punctuation, and spelling, as well as words and phrases that may be inappropriate. If there are any questions or concerns please feel free to contact the dictating provider for clarification. Fahad Champion DO [employer] Fahad Champion DO 01/08/23725 Fahad Champion DO 01/08/23726 I received signout at [address] Champion. Patient is pending admission for UTI and intractable neck pain. No fracture on CT. She is being treated with IV meropenem due to history of ESBL E. coli. I reviewed the ID note from 06/11/2022 describing ESBL E. coli sensitive to meropenem, Bactrim and gentamicin. We selected meropenem which it looks like she tolerated in July according to Dr. Becker's note from 08/07/2022. I reviewed these notes in the chart and assisted Dr. Champion with antibiotic selection. I discussed the case with Dr. Lu with [facility] who accepts patient for admission. Mario Portillo MD 01/08/23802 Patient presents to the ED via EMS from a correction facility due to neck pain. 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 Patient also states that she has a pinched nerve in her back because her right arm has been feeling numb, patients right arm reactive to painful stimuli. Per nursing facility patient is bed bound and non-complaint with her ADLs. Patient presents to ED with urinary catheter and heel protector boots. Bed: 12 Expected date: 01/08/23 Expected time: Means of arrival: Comments: Physicians Priya Forbes RN 01/08/23 0311 documented in this encounter [facility] 01-08-2023 History and physical note Images from the original note were not included. Attending History and Physical Admit Date: 01/08/2023 PCP: Paige Rivera DO CHIEF COMPLAINT: neck pain Reason for Admission: Neck pain UTI Debility and weakness History Obtained From: patient HISTORY OF PRESENT ILLNESS: Salazar is a 72 y.o. female with past medical history below who presents with chief complaint listed above. retirement resident sent for neck pain, which is more on left side. Unable to tell me duration. Left side of neck, paraspinal area, tender to touch. No fever or obvious trauma. No reported chest pain, SOB, abdominal pain, nausea or vomiting Past Medical History: Past Medical History: Diagnosis Date A-fib (CMS/HCC) (HCC) Anemia Diabetes (HCC) Lymphedema Obesity Past Surgical History: No past surgical history on file. Social History: Social History Socioeconomic History Marital status: Spouse name: Not on file Number of children: Not on file Years of education: Not on file Highest education level: Not on file Occupational History Not on file Tobacco Use Smoking status: Never Smokeless tobacco: Never Vaping Use Vaping Use: Never used Substance and Sexual Activity Alcohol use: Never Drug use: Never Sexual activity: Not Currently Other Topics Concern Not on file Social History Narrative Not on file Social Determinants of Health Financial Resource Strain: Not on file Food Insecurity: Not on file Transportation Needs: Not on file Physical Activity: Not on file Stress: Not on file Social Connections: Not on file Intimate Partner Violence: Not on file Housing Stability: Not on file Family History: No family history on file. Medications Prior to Admission: No current facility-administered medications on file prior to encounter. Current Outpatient Medications on File Prior to Encounter Medication Sig Dispense Refill apixaban (Eliquis) 5 MG tablet Take 1 tablet (5 mg) by mouth 2 times daily for 8 doses. 8 tablet 0 ascorbic acid (Vitamin C) 250 MG tablet Take 250 mg by mouth daily. atorvastatin (Lipitor) 20 MG tablet Take 20 mg by mouth daily. baclofen (Lioresal) 5 MG tablet Take 1 tablet by mouth daily. Calcium Carbonate-Vitamin D (Oyster Shell Calcium/D) 500-5 MG-MCG tablet Take 1 tablet by mouth daily. donepezil (Aricept) 10 MG tablet Take 10 mg by mouth Nightly. ferrous sulfate 325 (65 Fe) MG EC tablet Take 1 tablet (325 mg) by mouth daily (with breakfast). Do not crush, chew, or split. 30 tablet 11 furosemide (Lasix) 40 MG tablet Take 40 mg by mouth in the morning and 40 mg in the evening. insulin glargine (Lantus) 100 UNIT/ML injection Inject 10 Units under the skin Nightly. 10 mL 12 Insulin Lispro (Humalog) 100 UNIT/ML solution injection Inject 3 Units under the skin in the morning and 3 Units at noon and 3 Units in the evening. Inject with meals. 10 mL 2 lisinopril 10 MG tablet Take 10 mg by mouth daily. nystatin (Mycostatin) 254491 UNIT/GM powder senna-docusate (Helena-Colace) 8.6-50 MG tablet Take 100 tablets by mouth Every 24 hours. sertraline (Zoloft) 50 MG tablet Take 50 mg by mouth daily. Allergies: Allergies Allergen Reactions Ertapenem Patient tolerated July 2022 REVIEW OF SYSTEMS: ROS negative other than HPI Vitals: BP 114/72 (BP Location: Right arm, Patient Position: Lying) Pulse 67 Temp 36.6 C (97.8 F) Resp 18 Wt (!) 320 lb 6.4 oz (145 kg) SpO2 95% BMI 51.74 kg/m BMI Classification: Pulse Ox: SpO2 Av.2 % Min: 95 % Max: 98 % Supplemental O2: PHYSICAL EXAM: Physical Exam Constitutional: Appearance: She is obese. Cardiovascular: Rate and Rhythm: Normal rate and regular rhythm. Heart sounds: Normal heart sounds. Pulmonary: Effort: Pulmonary effort is normal. Breath sounds: Normal breath sounds. Comments: Decreased on lung bases Abdominal: General: Bowel sounds are normal. Palpations: Abdomen is soft. Musculoskeletal: Comments: Edema b/l LE with venous stasis dermatosis and skin changes. Neurological: Mental Status: She is alert. Comments: Cranial never 2-12 grossly normal. Strength preserved on UE. B/l radial pulse +. Very weak LE, barely moving. Bed bound at baseline DATA: CBC: Recent Labs 01/08/23426 WBC 6.1 RBC 3.47* HGB 11.5* HCT 34.0* MCV 98.1* RDW 14.6* PLT 173 BMP: Recent Labs 01/08/23426 NA 138 K 5.2* CL 99 CO2 32* BUN 53* CREATININE 1.22* GLUCOSE 243* CALCIUM 8.6 ANIONGAP 7 LIVER PROFILE: Recent Labs 01/08/23426 AST 29 ALT 20 BILITOT 0.4 ALKPHOS 93 PROT 7.4 PT/INR: No results for input(s): "PROTIME", "INR" in the last 72 hours. CARDIAC ENZYMES: No results for input(s): "TROPONINI" in the last 72 hours. Procalcitonin: No results found for: PROCAL Urine Culture: Results for orders placed or performed during the hospital encounter of 08/02/22 Urine culture Specimen: Urine, Clean Catch Result Value Ref Range Urine Culture No growth (<1,000 CFU/mL) COVID-19 PCR: No results for input(s): "COVID19" in the last 72 hours. I reviewed: [x] laboratory results [x] radiographic results At the time of today's encounter. Pt was advised of the results. IMPRESSION: NECK pain - likely MSK - tenderness left paraspinal muscle - CT cervical spine -Cervical spondylosis particularly from C4-C5 through C6-C7 - MRI C spine - soft tissue on C spine CT - normal - consult ortho 2. Neurogenic bladder with indwelling jose 3. UTI - abnormal UA, normal WBC, no fever. - h/o ESBL UTI - started on meropenem, continue - follow urine and blood culture 4. PAF on anticoagulation 5. Dementia 6. Mild hyperkalemia 7. Lactic acidosis - improved. 9. CKD - creatinine 1.22 , 1.11 five months ago, monitor 10. DM type 2 with hyperglycemia 11. Debility and weakness, bed bound at baseline 12. Obesity 13. Venous stasis LE wit stasis dermatosis /skin changes Medical Decision Making: - admit to tele -Discussed with ED provider and agree with their plan for admission - continue meropenem for now, UA abnormal , but no overt sign and symptoms of infection. Lactic acid mildly elevated. Follow urine and blood culture - DC if blood and urine culture negative - MRI C spine , consult ortho - labs in am -PT/OT eval/increase activity -am labs, replace lytes prn -vitals per routine -home meds as ordered -DVT prophylaxis: [] Lovenox [] Heparin [] SCDs [x] Encourage ambulation [x] Already on Anticoagulation Anticipated Discharge - Date - 2-3 days - Location - SNF - Pending the following - clinical improvement Total time spent (which include face to face and non face to face encounters) : 35 minutes Toxic drug monitoring/narrow therapeutic index drug monitoring : # Drug name : # Route administered : # Method of monitoring : Extended Emergency Contact Information Primary Emergency Contact: Deidra Vang Mobile Relation: Child Secondary Emergency Contact: Jesus Frank Mobile Relation: Spouse Preferred language: [place] 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 No Code status: Prior -see below for additional orders, further recommendations to follow Orders Placed This Encounter Procedures Urine culture Blood culture Site #1 - Suspected Infection Blood culture Site #2 - Suspected Infection CT cervical spine wo IV contrast MR cervical spine wo contrast CT soft tissue neck wo IV contrast Complete Urinalysis with reflex to Culture Complete Urinalysis CBC auto differential Comprehensive metabolic panel Lactic acid with reflex Lactic acid with reflex Insert peripheral IV Admit to inpatient Please forward a copy of this H&P to the patient's PCP. Thank you. [employer] Phone: 01-08-2023 History and physical note Images from the original note were not included. Attending History and Physical Admit Date: 01/08/2023 PCP: Paige Rivera DO CHIEF COMPLAINT: neck pain Reason for Admission: Neck pain UTI Debility and weakness History Obtained From: patient HISTORY OF PRESENT ILLNESS: Salazar is a 72 y.o. female with past medical history below who presents with chief complaint listed above. retirement resident sent for neck pain, which is more on left side. Unable to tell me duration. Left side of neck, paraspinal area, tender to touch. No fever or obvious trauma. No reported chest pain, SOB, abdominal pain, nausea or vomiting Past Medical History: Past Medical History: Diagnosis Date A-fib (CMS/HCC) (HCC) Anemia Diabetes (HCC) Lymphedema Obesity Past Surgical History: No past surgical history on file. Social History: Social History Socioeconomic History Marital status: Spouse name: Not on file Number of children: Not on file Years of education: Not on file Highest education level: Not on file Occupational History Not on file Tobacco Use Smoking status: Never Smokeless tobacco: Never Vaping Use Vaping Use: Never used Substance and Sexual Activity Alcohol use: Never Drug use: Never Sexual activity: Not Currently Other Topics Concern Not on file Social History Narrative Not on file Social Determinants of Health Financial Resource Strain: Not on file Food Insecurity: Not on file Transportation Needs: Not on file Physical Activity: Not on file Stress: Not on file Social Connections: Not on file Intimate Partner Violence: Not on file Housing Stability: Not on file Family History: No family history on file. Medications Prior to Admission: No current facility-administered medications on file prior to encounter. Current Outpatient Medications on File Prior to Encounter Medication Sig Dispense Refill apixaban (Eliquis) 5 MG tablet Take 1 tablet (5 mg) by mouth 2 times daily for 8 doses. 8 tablet 0 ascorbic acid (Vitamin C) 250 MG tablet Take 250 mg by mouth daily. atorvastatin (Lipitor) 20 MG tablet Take 20 mg by mouth daily. baclofen (Lioresal) 5 MG tablet Take 1 tablet by mouth daily. Calcium Carbonate-Vitamin D (Oyster Shell Calcium/D) 500-5 MG-MCG tablet Take 1 tablet by mouth daily. donepezil (Aricept) 10 MG tablet Take 10 mg by mouth Nightly. ferrous sulfate 325 (65 Fe) MG EC tablet Take 1 tablet (325 mg) by mouth daily (with breakfast). Do not crush, chew, or split. 30 tablet 11 furosemide (Lasix) 40 MG tablet Take 40 mg by mouth in the morning and 40 mg in the evening. insulin glargine (Lantus) 100 UNIT/ML injection Inject 10 Units under the skin Nightly. 10 mL 12 Insulin Lispro (Humalog) 100 UNIT/ML solution injection Inject 3 Units under the skin in the morning and 3 Units at noon and 3 Units in the evening. Inject with meals. 10 mL 2 lisinopril 10 MG tablet Take 10 mg by mouth daily. nystatin (Mycostatin) 122462 UNIT/GM powder senna-docusate (Helena-Colace) 8.6-50 MG tablet Take 100 tablets by mouth Every 24 hours. sertraline (Zoloft) 50 MG tablet Take 50 mg by mouth daily. Allergies: Allergies Allergen Reactions Ertapenem Patient tolerated July 2022 REVIEW OF SYSTEMS: ROS negative other than HPI Vitals: BP 114/72 (BP Location: Right arm, Patient Position: Lying) Pulse 67 Temp 36.6 C (97.8 F) Resp 18 Wt (!) 320 lb 6.4 oz (145 kg) SpO2 95% BMI 51.74 kg/m BMI Classification: Pulse Ox: SpO2 Av.2 % Min: 95 % Max: 98 % Supplemental O2: PHYSICAL EXAM: Physical Exam Constitutional: Appearance: She is obese. Cardiovascular: Rate and Rhythm: Normal rate and regular rhythm. Heart sounds: Normal heart sounds. Pulmonary: Effort: Pulmonary effort is normal. Breath sounds: Normal breath sounds. Comments: Decreased on lung bases Abdominal: General: Bowel sounds are normal. Palpations: Abdomen is soft. Musculoskeletal: Comments: Edema b/l LE with venous stasis dermatosis and skin changes. Neurological: Mental Status: She is alert. Comments: Cranial never 2-12 grossly normal. Strength preserved on UE. B/l radial pulse +. Very weak LE, barely moving. Bed bound at baseline DATA: CBC: Recent Labs 01/08/23426 WBC 6.1 RBC 3.47* HGB 11.5* HCT 34.0* MCV 98.1* RDW 14.6* PLT 173 BMP: Recent Labs 01/08/23426 NA 138 K 5.2* CL 99 CO2 32* BUN 53* CREATININE 1.22* GLUCOSE 243* CALCIUM 8.6 ANIONGAP 7 LIVER PROFILE: Recent Labs 01/08/23426 AST 29 ALT 20 BILITOT 0.4 ALKPHOS 93 PROT 7.4 PT/INR: No results for input(s): "PROTIME", "INR" in the last 72 hours. CARDIAC ENZYMES: No results for input(s): "TROPONINI" in the last 72 hours. Procalcitonin: No results found for: PROCAL Urine Culture: Results for orders placed or performed during the hospital encounter of 08/02/22 Urine culture Specimen: Urine, Clean Catch Result Value Ref Range Urine Culture No growth (<1,000 CFU/mL) COVID-19 PCR: No results for input(s): "COVID19" in the last 72 hours. I reviewed: [x] laboratory results [x] radiographic results At the time of today's encounter. Pt was advised of the results. IMPRESSION: NECK pain - likely MSK - tenderness left paraspinal muscle - CT cervical spine -Cervical spondylosis particularly from C4-C5 through C6-C7 - MRI C spine - soft tissue on C spine CT - normal - consult ortho 2. Neurogenic bladder with indwelling jose 3. UTI - abnormal UA, normal WBC, no fever. - h/o ESBL UTI - started on meropenem, continue - follow urine and blood culture 4. PAF on anticoagulation 5. Dementia 6. Mild hyperkalemia 7. Lactic acidosis - improved. 9. CKD - creatinine 1.22 , 1.11 five months ago, monitor 10. DM type 2 with hyperglycemia 11. Debility and weakness, bed bound at baseline 12. Obesity 13. Venous stasis LE wit stasis dermatosis /skin changes Medical Decision Making: - admit to tele -Discussed with ED provider and agree with their plan for admission - continue meropenem for now, UA abnormal , but no overt sign and symptoms of infection. Lactic acid mildly elevated. Follow urine and blood culture - DC if blood and urine culture negative - MRI C spine , consult ortho - labs in am -PT/OT eval/increase activity -am labs, replace lytes prn -vitals per routine -home meds as ordered -DVT prophylaxis: [] Lovenox [] Heparin [] SCDs [x] Encourage ambulation [x] Already on Anticoagulation Anticipated Discharge - Date - 2-3 days - Location - SNF - Pending the following - clinical improvement Total time spent (which include face to face and non face to face encounters) : 35 minutes Toxic drug monitoring/narrow therapeutic index drug monitoring : # Drug name : # Route administered : # Method of monitoring : Extended Emergency Contact Information Primary Emergency Contact: Deidra Vang Mobile Relation: Child Secondary Emergency Contact: ZacJesus Mobile Relation: Spouse Preferred language: [place] 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 No Code status: Prior -see below for additional orders, further recommendations to follow Orders Placed This Encounter Procedures Urine culture Blood culture Site #1 - Suspected Infection Blood culture Site #2 - Suspected Infection CT cervical spine wo IV contrast MR cervical spine wo contrast CT soft tissue neck wo IV contrast Complete Urinalysis with reflex to Culture Complete Urinalysis CBC auto differential Comprehensive metabolic panel Lactic acid with reflex Lactic acid with reflex Insert peripheral IV Admit to inpatient Please forward a copy of this H&P to the patient's PCP. Thank you. documented in this encounter [facility] 01-08-2023 Emergency department Note Changed urinary catheter with the help from MATHEUS Powers RN Kortney, RN Heather, Nursing Senior Hydrogeologist. Complete bed change of performed on th patient. Dirt was wiped from inside her leg folds. Multiple wounds noted, see media images. Warm blankets provided, patient resting comfortably. Michelle Mott RN 01/08/23 0628 [facility] 01-08-2023 Emergency department Note Attempted IV 2x. Med student performing ultra sound guided IV with Dr. Vee at bedside. Michelle Mott RN 01/08/23 0407 [facility] 01-08-[address] Champion spoke with the nursing facility and states that the nursing facility was planning to change the urinary catheter today and did not have time to and that patient wanted to be brought to the ED due to the neck pain, and that is why they sent her here. Michelle Mott RN 01/08/23 0406 [facility] 01-08-2023 Emergency department Note Bed: 12 Expected date: 01/08/23 Expected time: Means of arrival: Comments: Physicians Priya oFrbes RN 01/08/23 8471 [facility] 01-08-2023 Emergency department Triage note Patient presents to the ED via EMS from a correction facility due to neck pain. 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 Patient also states that she has a pinched nerve in her back because her right arm has been feeling numb, patients right arm reactive to painful stimuli. Per nursing facility patient is bed bound and non-complaint with her ADLs. Patient presents to ED with urinary catheter and heel protector boots. [facility] 01-08-2023 Physician Emergency department Note Emergency Department Encounter [facility] ED Patient: Salazra Coyle : 1950 Date of Evaluation: 01/08/2023 ED Provider: Fahad Champion DO Chief Complaint Chief Complaint Patient presents with Neck Pain Arm Pain Leg Pain ELIZABETH Coyle is a 72 y.o. female who presents to the emergency department complaining of neck pain. Patient reports that she has had neck pain and right upper extremity numbness and tingling developing for over 1 week. Is very painful. She believes she has osteoarthritis. Family at bedside states that this has been a progressive issue. Patient is bedbound for several years. She is noncompliant with occupational therapy and physical therapy. Family requested MRI but nursing facility told patient that insurance would not approve this unless patient went to the emergency department. Patient has history of previous urinary tract infections, Additional history obtained from : n/a Barriers to obtaining history from patient: n/a ROS: Review of Systems completed as follows: (Bold = positive, Not bold = negative) GENERAL: fevers, chills, malaise ENT: runny nose, congestion, sore throat, ear pain NEURO: weakness, numbness of tingling, headache CARDIOVASCULAR: chest pain, syncope PULMONARY: shortness of breath, cough, wheezing GASTROINTESTINAL: nausea, vomiting, abdominal pain, diarrhea, constipation, MUSCULOSKELETAL: pain GENITAL/URINARY: dysuria, hematuria, increased urinary frequency, hesitancy, flank pain SKIN: rash, lesions, wound Past History Past Medical History: Diagnosis Date A-fib (CMS/HCC) (HCC) Anemia Diabetes (HCC) Lymphedema Obesity No past surgical history on file. Social History Socioeconomic History Marital status: Tobacco Use Smoking status: Never Smokeless tobacco: Never Vaping Use Vaping Use: Never used Substance and Sexual Activity Alcohol use: Never Drug use: Never Sexual activity: Not Currently I have reviewed the history above as provided by nursing notes. Medications/Allergies Previous Medications APIXABAN (ELIQUIS) 5 MG TABLET Take 1 tablet (5 mg) by mouth 2 times daily for 8 doses. ASCORBIC ACID (VITAMIN C) 250 MG TABLET Take 250 mg by mouth daily. ATORVASTATIN (LIPITOR) 20 MG TABLET Take 20 mg by mouth daily. BACLOFEN (LIORESAL) 5 MG TABLET Take 1 tablet by mouth daily. CALCIUM CARBONATE-VITAMIN D (OYSTER SHELL CALCIUM/D) 500-5 MG-MCG TABLET Take 1 tablet by mouth daily. DONEPEZIL (ARICEPT) 10 MG TABLET Take 10 mg by mouth Nightly. FERROUS SULFATE 325 (65 FE) MG EC TABLET Take 1 tablet (325 mg) by mouth daily (with breakfast). Do not crush, chew, or split. FUROSEMIDE (LASIX) 40 MG TABLET Take 40 mg by mouth in the morning and 40 mg in the evening. INSULIN GLARGINE (LANTUS) 100 UNIT/ML INJECTION Inject 10 Units under the skin Nightly. INSULIN LISPRO (HUMALOG) 100 UNIT/ML SOLUTION INJECTION Inject 3 Units under the skin in the morning and 3 Units at noon and 3 Units in the evening. Inject with meals. LISINOPRIL 10 MG TABLET Take 10 mg by mouth daily. NYSTATIN (MYCOSTATIN) 346868 UNIT/GM POWDER SENNA-DOCUSATE (HELENA-COLACE) 8.6-50 MG TABLET Take 100 tablets by mouth Every 24 hours. SERTRALINE (ZOLOFT) 50 MG TABLET Take 50 mg by mouth daily. Allergies Allergen Reactions Ertapenem Patient tolerated July 2022 I have reviewed the history above as provided by nursing notes. Physical Exam ED Triage Vitals [01/08/23 0325] Temp Heart Rate Resp BP 36.6 C (97.8 F) 65 22 (!) 152/61 SpO2 Temp src Heart Rate Source Patient Position 98 % -- Monitor -- BP Location FiO2 (%) -- -- GENERAL: Chronically debilitated patient laying comfortably in the bed. EYES: PERRL. No scleral icterus or orbital trauma noted. HEENT: Mucous membranes moist. Nares patent without copious rhinorrhea. NECK: No palpable midline tenderness to palpation. No palpable bony step-off. There is bilateral paraspinal tenderness exquisite to palpation. LUNGS: Lungs are clear to auscultation, without any respiratory distress. CARDIAC: Rhythm is regular. No murmur appreciated ABDOMEN: Morbidly obese abdomen. Nontender, soft, with no obvious masses, and no peritoneal signs. EXTREMITIES: Global weakness in upper and lower extremities. SKIN: Good color, with no significant rashes. No pallor. NEURO: No obvious neurological deficits, she has global weakness throughout. She has difficulty raising her arms in the air and can wiggle her toes without being able to raise her legs against gravity for more than 1 second. She has right-sided upper extremity paresthesias to palpation throughout. Diagnostics Labs: Results for orders placed or performed during the hospital encounter of 01/08/23 Complete Urinalysis Result Value Ref Range Color, Urine Colorless Lt. Yellow Clarity, Urine Turbid (A) Clear pH, Urine 7.5 5.0 - 8.0 pH Leukocytes, Urine 500 (A) Negative Jimenez/uL Nitrite, Urine Negative Negative Protein, Urine 50 (A) Negative mg/dL Glucose, Urine Normal Normal (<70) mg/dL Bilirubin, Urine Negative Negative mg/dL Ketones, Urine Negative Negative mg/dL Urobilinogen, Urine Normal Normal (0-1) mg/dL Blood, Urine >1.0 (A) Negative mg/dL RBC, Urine 51-100 (A) 0 - 2 /HPF WBC, Urine 26-50 (A) 0 - 5 /HPF Squamous Epithelial, Urine 0-2 3 - 5 /HPF Bacteria, Urine Moderate (A) Negative /HPF Mucus, Urine Few Negative /LPF WBC Clumps, Urine Few (A) Negative /HPF SPECIFIC GRAVITY OF URINE (NUMERIC) 1.010 1.005 - 1.030 CBC auto differential Result Value Ref Range Auto WBC 6.1 3.6 - 10.7 10*3/uL RBC 3.47 (L) 3.8 - 5.20 10*6/uL Hemoglobin 11.5 (L) 11.7 - 16.0 g/dL Hematocrit 34.0 (L) 35.0 - 47.0 % MCV 98.1 (H) 80.0 - 98.0 fL MCH 33.0 26.0 - 34.0 pg MCHC 33.6 32.0 - 36.0 % RDW 14.6 (H) 11.5 - 14.5 % Platelets 173 140 - 440 10*3/uL MPV 9.3 7.4 - 12.4 fL nRBC 0.1 0.0 - 2.0 /100 WBCs Neutrophils Relative 56.1 40.0 - 80.0 % Lymphocytes Relative 32.6 20.0 - 40.0 % Monocytes Relative 6.7 2.0 - 10.0 % Eosinophils Relative 4.1 1.0 - 6.0 % Basophils Relative 0.5 0.0 - 2.0 % Neutrophils Absolute 3.4 1.8 - 7.0 10*3/uL Lymphocytes Absolute 2.0 1.0 - 4.3 10*3/uL Monocytes Absolute 0.4 0.0 - 0.8 10*3/uL Eosinophils Absolute 0.2 0.0 - 0.5 10*3/uL Basophils Absolute 0.0 0.0 - 0.2 10*3/uL Comprehensive metabolic panel Result Value Ref Range SODIUM 138 135 - 145 mmol/L POTASSIUM 5.2 (H) 3.5 - 5.1 mmol/L CHLORIDE 99 98 - 107 mmol/L CARBON DIOXIDE 32 (H) 22 - 30 mmol/L ANION GAP 7 3 - 13 mmol/L UREA NITROGEN 53 (H) 7 - 17 mg/dL CREATININE 1.22 (H) 0.52 - 1.04 mg/dL GLUCOSE 243 (H) 70 - 100 mg/dL CALCIUM 8.6 8.4 - 10.4 mg/dL AST (SGOT) 29 15 - 46 U/L ALT 20 0 - 34 U/L ALKALINE PHOSPHATASE 93 38 - 126 U/L ALBUMIN 3.6 3.5 - 5.0 g/dL BILIRUBIN, TOTAL 0.4 0.2 - 1.3 mg/dL TOTAL PROTEIN 7.4 6.3 - 8.2 g/dL eGFR 46.7 (L) >60.0 mL/min/1.73m*2 Lactic acid with reflex Result Value Ref Range LACTIC ACID 2.2 (H) 0.7 - 2.0 mmol/L Radiographs: CT cervical spine wo IV contrast Final Result 1. No acute abnormality identified throughout the cervical spine. 2. Cervical spondylosis particularly from C4-C5 through C6-C7 3. MRI would probably be indicated for further evaluation Report Dictated on Electronically Signed By: Ramone Beckett MD Electronically Signed Date/Time: 01/08/2023 5:23 AM EDT EMERGENCY DEPARTMENT COURSE and DIFFERENTIAL DIAGNOSIS/MDM: Vitals: Vitals: 01/08/23 0325 01/08/23 0427 01/08/23 0603 01/08/23 0707 BP: (!) 152/61 (!) 142/53 113/81 (!) 121/48 Pulse: 65 68 69 65 Resp: 22 16 16 16 Temp: 36.6 C (97.8 F) SpO2: 98% 96% 96% 96% Weight: (!) 145 kg (320 lb 6.4 oz) The patient presented with a chief complaint of neck pain. Vital signs reviewed. On exam, patient is morbidly obese, bedbound. She appears chronically weak and her symptoms although bothersome sound extremely chronic as she has been on oxycodone for greater than 10 years. However, she reports new neck pain and right upper extremity symptoms for the last 10 days. She states she has not had adequate pain control and she came to the emergency department for this reason. I did call and speak to the nursing staff at patient's nursing facility. She been complaining of pain since dinnertime and overnight, they called the physician who requested an x-ray of the neck to be performed however patient was adamant that she wanted to be transferred to the emergency department for evaluation. They state that the symptoms are not new and have been chronic for some time. Differential considered includes radicular symptoms from the neck, less likely cervical fracture given lack of trauma and mobility. Low concern for acute spinal cord compression. Patient has chronic Jose catheter related to neurogenic bladder. She is nonambulatory. I do not feel that emergent MRI would be required for this time as I also believe that patient would be at extremely poor surgical candidate. However does help assist with diagnostics I will order a CT scan of the cervical spine without contrast. Patient was noted to have a Jose catheter that appeared purulent, somewhat bloody. Nursing staff and had called stated they had plans to exchange the catheter as there had been an odor. I asked nursing staff to perform this and I also checked blood work. I personally placed ultrasound-guided IV due to poor access. Patient's blood work did not reveal leukocytosis. Her kidney function is within normal limits. Her urinalysis after replacement of her Jose catheter did show blood and white blood cells concerning for UTI. CT scan showed multiple areas of chronic degenerative changes but no acute findings. Patient was treated with IV morphine and her symptoms were mildly improved. Given patient's strong history of ESBL bacteriuria and sepsis previously I will treat her in the hospital with IV meropenem. I will suggest that she see pain management for her chronic symptoms and I considered transfer [facility] for spine evaluation however again, I feel patient is an extremely poor surgical candidate and would not be a candidate for any acute intervention. Diagnoses as of 01/08/23725 Radicular pain in right arm Neck muscle spasm Cystitis Diagnostic tests considered but not performed: Considered CT scan of the abdomen pelvis however patient is not demonstrating any signs or symptoms that would suggest an intra-abdominal infection, kidney stone. Although she does have symptoms of urinary tract infection she has no abdominal pain, flank pain and is not septic appearing on vital sign evaluation. External records reviewed: Reviewed discharge summary from 08/02/2022 where patient had been admitted due to sepsis secondary to UPJ calculus and had a stent placed. She had been discharged to her nursing facility however she was admitted for UPJ calculus lithotripsy and stent exchange due to poor outpatient follow-up. She was treated with meropenem for antibiotics. Diagnostics interpreted by me: Personally reviewed CT scan of the neck as above Chronic conditions impacting care: Chronic renal issues including urolithiasis, chronic pain syndrome, type 2 diabetes, hypertension, hyperlipidemia ED Medications managed: Medications meropenem (Merrem) IVPB 2000 mg in 100 mL NS (compounded premix) (has no administration in time range) morphine injection 4 mg (4 mg IntraVENous Given 01/08/23423) ondansetron (Zofran) injection 4 mg (4 mg IntraVENous Given 01/08/23423) sodium chloride 0.9 % bolus 500 mL (500 mL IntraVENous New Bag 01/08/23612) morphine injection 2 mg (2 mg IntraVENous Given 01/08/2332) Patients symptoms are consistent with sepsis, severe sepsis or septic shock (if yes, use ".sepsiscoremeasure") -although patient does have a mild lactic acid elevation of 2.2, she does not meet SIRS criteria as she has normal heart rate, normal temperature, normal respiratory rate and no leukocytosis. She will be treated for infection but she is not meeting sepsis criteria at this time. Final Impression 1. Radicular pain in right arm 2. Neck muscle spasm 3. Cystitis DISPOSITION admit Comment: Please note this report has been produced using speech recognition software and may contain errors related to that system including errors in grammar, punctuation, and spelling, as well as words and phrases that may be inappropriate. If there are any questions or concerns please feel free to contact the dictating provider for clarification. Fahad Champion DO [facility] Fahad Champion DO 01/08/23725 Fahad Champion DO 01/08/23726 [facility] 01-08-2023 Physician Emergency department Note I received signout at [address] Champion. Patient is pending admission for UTI and intractable neck pain. No fracture on CT. She is being treated with IV meropenem due to history of ESBL E. coli. I reviewed the ID note from 06/11/2022 describing ESBL E. coli sensitive to meropenem, Bactrim and gentamicin. We selected meropenem which it looks like she tolerated in July according to Dr. Becker's note from 08/07/2022. I reviewed these notes in the chart and assisted Dr. Champion with antibiotic selection. I discussed the case with Dr. Lu with [facility] who accepts patient for admission. Mario Portillo MD 01/08/23802 T [facility] 08-07-2022 Note Formatting of this n ote might be different from the original. Requested to arrange transport for discharge back to [facility]. Ambulance set up with [facility] for 4 pm, Used cot due to Vascular dementia with some confusion, hematuria with stent removal, weight of 343 lbs. ,and laser lithotripsy and stent exchange. Notified PAIGE Maame, patient , RN, Head Shipper, [facility] and [facility]. [facility] 08-07-2022 Note Formatting of this n ote might be different from the original. Requested to arrange transport for discharge back to [facility]. Ambulance set up with [facility] for 4 pm, Used cot due to Vascular dementia with some confusion, hematuria with stent removal, weight of 343 lbs. ,and laser lithotripsy and stent exchange. Notified PAIGE Maame, patient , RN, Head Shipper, [facility] and [facility]. [facility] 08-07-2022 Miscellaneous Notes Requested to arrange transport for discharge back to [facility]. Ambulance set up with [facility] for 4 pm, Used cot due to Vascular dementia with some confusion, hematuria with stent removal, weight of 343 lbs. ,and laser lithotripsy and stent exchange. Notified PAIGE Maame, patient , RN, Head Shipper, [facility] and [facility]. Discharge med rec and covid transmitted to [facility] for return via [facility] per [facility] request. Return Referral placed to [facility] via [facility] per [facility] request. Await review and response regarding ability to accept. [facility] notified. Care Managment Initial Assessment Date: 08/03/2022 Patient Name: Salazar Coyle : 1950 Patient Information Source of Information: Patient Registered Nurse Maternity Name/Contact Information: Deidra Vang daughter Cognition/Language: WFL - Within Functional Limits, Other (Comment) (patient off of floor, per daughter some minor dementia) Permission given to speak with patient career services representative/caregiver as indicated: Yes Confirmation of Payer with patient/family: Yes Payer Name: [place] Medicare/ [place]: No Confirmation of Primary Care Physician: Confirmed PCP Name: MD at facility Seen in last 2 years?: Yes Primary Caregiver: Other (Comment) (facility staff) If assistance needed, confirmed caregiver ready, willing and able to care for patient at discharge: No Confirmed with: nabor Gay Living Arrangements Facility: Residential[facility] Facility Name: [facility] Plan to Return: Yes Lives with: Other (Comment) (at facility) Support Systems: Children, Comments (Other) (facility staff) Activities of Daily Living Ambulation: Total Care Bathing/Dressing: Total Care Elimination/Continence/Toileting: Total Care Feeding: Assistance Who Assists with Activities of Daily Living: facility staff Instrumental Activities of Daily Living Prescription Coverage: Yes Pharmacy Used: facility Medication Management: Transportation/Shopping: Assistance Provider Transportation/Shopping Assistance Provider Name: cot transport when needed Transportation Mode: Needs Assistance with Transportation at Discharge: Yes Meal Preparation: Assistance Provider Meal Prep Assistance Provider Name: facility Laundry/Cleaning: Assistance Provider Laundry/Cleaning Assistance Provider Name: facility Finances/Bill Paying: Communication: Independent Types of Care Services/Equipment Utilized Durable Medical Equipment: Hospital Bed Patient's Goal/Discharge Plan Patient expects to be discharged to: return to facility Discharge Planning Actions: Continue to follow, [place] Facility referral indicated [place] of choice: [place] of choice discussed (no choice list needed; patient is a return) Patient's Choice Rights and [employer] and Collaborative Relationships Disclosed as Indicated for Post-Acute Care: NA Interdisciplinary Team Engagement: PT/OT Social Work Referral for: Additional Information: Introduced self and role to patient daughter Deidra via telephone. Patient admitted for hematuria. Urology consulted and patient taken to OR for scheduled stent removal. +iv meropenum for UTI. Per daughter plan is return to [facility], she is bedbound and has been at the facility for a few years now. Anticipate discharge in 1-2 days pending medical stability. ICHTHYOLOGY TEACHER tasked to place return referral. TCC to continue to follow. Christina Rivera RN Patient very drowsy, unable to answer questions or follow commands. VSS. Dr. Long at bedside. Orders to give patient additional time and continue to monitor. UROLOGY OPERATIVE REPORT PATIENT NAME: Salazar Coyle DATE OF : 1950 TODAY'S DATE: 08/03/2022 PreOp Dx: Left ureteral calculus, left stent PostOp Dx: Same Operation: Cystoscopy Left ureteroscopy with laser lithotripsy Left ureteral stent exchange Surgeon: Annette Bejarano DO Steno Pool Supervisor: Nate Churchill DO, PGY 5 Anesthesia: General endotracheal EBL: Minimal Wound classification: Clean contaminated Implants: 6 [place] Island[place] by 26 cm JJ left ureteral stent tied to a 20 [place] urethral Jose catheter Drains/Packing: None Jose: 20 [place] Jose catheter with 20 cc in balloon Specimens: None sent Complications: none apparent Condition: Stable to PACU Indication for Procedure: Salazar Coyle is a 71 y.o. female who presents with left ureteral calculus. She had previously undergone stent placement during an period of severe sepsis when she was admitted at [facility]. She presents today for definitive stone management in the form of laser lithotripsy and stent exchange.. After having a discussion on treatment options, risks and benefits, the patient wishes to proceed forward with surgical intervention Description of Procedure: Patient was brought to the operating room and placed on the operative table. Induction per anesthesia. Meropenem was administered preoperative antibiotic, positioned in a modified dorsolithotomy fashion. Patient has severe lower extremity immobility, contractures secondary to arthritis and a nonambulatory status for the past 5 years. She also has severe skin thickening and flaking to bilateral lower extremities with pressure sores to her gluteus. This was present on admission and was present on her last admission as well. We were able to place SCDs and legs were padded and secured to the stirrups to the best of our ability in order to prevent any pressure injuries.. Patient was then prepped and draped in the normal sterile fashion, a timeout was performed and all parties were in agreement. X-ray was performed, this reveals a calcification overlying the left kidney, there is an indwelling stent. Using a rigid scope we atraumatically into the bladder to perform a cystourethroscopy. Urethra is capacious and there is somewhat eroded noted. There is noted to be a somewhat small capacity bladder likely secondary to long-term indwelling catheter, there is noted to be catheter cystitis. Stent is seen with curl in the bladder. We will hold of the role extracorporeally and attempted to pass a wire through the stent but it was calcified. We reentered the bladder and using an open-ended catheter and a sensor wire we are able to cannulate the left ureteral orifice and passed a wire up to the level of the knee. Stent was then removed. A 12/14 [place] Island[place] short ureteral access sheath was passed over the wire, we then used a flexible ureteroscope to perform pyeloscopy. The large proximal stone was identified along with a couple other renal stones seen on CT scan. 200 mg Jenifer holmium laser fiber was used to perform stone dusting. All fragments were smaller than proximally 1 mm at the termination of the case. Wire was reinserted and the scope and access sheath were removed. A stent was placed over the wire the stent selected was 6 [place] by 26 cm, the tether was secured to a 20 [place] Jose catheter prior to insertion of the stent. Stent was deployed using fluoroscopy, there was a good curl in the left kidney as well as in the bladder and the Jose catheter was inserted into the bladder inflated with 20 cc of sterile water. Patient was awakened from anesthesia and transferred to the recovery room in stable condition Plan: Return to the floor and resume preoperative orders. Would recommend additional dose of meropenem while she is in the hospital due to history of severe sepsis with bacteremia. She did also receive 1 dose of intraoperative vancomycin for history of staph bacteremia. When the patient's catheter is exchanged in the next 3 to 4 weeks, the stent will be removed at that time as well. Due to her severe immobility and need for specialized ambulance with extra transport team, we will not plan on following up with Salazar in the office, if she has a problem she can call the office and we can arrange for a virtual visit however at this time she is deemed stone free Problem: Neurosensory - Adult Goal: Achieves stable or improved neurological status Outcome: Progressing Goal: Achieves maximal functionality and self care Outcome: Progressing Problem: Skin/Tissue Integrity - Adult Goal: Skin integrity remains intact Outcome: Progressing Goal: Incisions, wounds, or drain sites healing without S/S of infection Outcome: Progressing Goal: Oral mucous membranes remain intact Outcome: Progressing Problem: Musculoskeletal - Adult Goal: Return mobility to safest level of function Outcome: Progressing Goal: Return ADL status to a safe level of function Outcome: Progressing Problem: Genitourinary - Adult Goal: Absence of urinary retention Outcome: Progressing Goal: Urinary catheter remains patent Outcome: Progressing Problem: Infection - Adult Goal: Absence of infection at discharge Outcome: Progressing Goal: Absence of fever/infection during anticipated neutropenic period Outcome: Progressing Problem: Hematologic - Adult Goal: Maintains hematologic stability Outcome: Progressing documented in this encounter [facility] 08-07-2022 History of Present illness Narrative Images from the original note were not included. [facility] Wound Care Progress Note Salazar Coyle AGE: 71 y.o. GENDER: female : 1950 Subjective: HISTORY of PRESENT ILLNESS HPI Salazar Coyle is a 71 y.o. female who presents for a wound care follow up. History of Wound Context: 71 y.o. female with PMH Vascular/Alzheimer Dementia, T2DM, Chronic Jose 2/2 neurogenic bladder, Anxiety, Chronic Pain, Morbid Obesity that presented to [facility] on 08/02/2022 from outside facility ([facility]). She was admitted on 06/09 with severe sepsis due to left UPJ calculus s/p stent and abx. She was discharged to [facility] for abx and rehab. She was scheduled to see urology for ureteroscopy, but missed multiple appointments. She was transferred to [facility] ED due to hematuria. Wound Care consulted for bilateral LE. Patient resting in bed. PAST MEDICAL HISTORY Past Medical History: Diagnosis Date A-fib (CMS/HCC) (HCC) Anemia Diabetes ([facility]) Lymphedema Obesity PAST SURGICAL HISTORY History reviewed. No pertinent surgical history. FAMILY HISTORY No family history on file. SOCIAL HISTORY Social History Tobacco Use Smoking status: Never Smokeless tobacco: Never Vaping Use Vaping Use: Never used Substance Use Topics Alcohol use: Never Drug use: Never ALLERGIES Allergies Allergen Reactions Ertapenem Patient tolerated July 2022 MEDICATIONS No current facility-administered medications on file prior to encounter. Current Outpatient Medications on File Prior to Encounter Medication Sig Dispense Refill sertraline (Zoloft) 50 MG tablet Take 50 mg by mouth daily. apixaban (Eliquis) 5 MG tablet Take 1 tablet (5 mg) by mouth 2 times daily for 8 doses. 8 tablet 0 ascorbic acid (Vitamin C) 250 MG tablet Take 250 mg by mouth daily. atorvastatin (Lipitor) 20 MG tablet Take 20 mg by mouth daily. baclofen (Lioresal) 5 MG tablet Take 1 tablet by mouth daily. Calcium Carbonate-Vitamin D (Oyster Shell Calcium/D) 500-5 MG-MCG tablet Take 1 tablet by mouth daily. donepezil (Aricept) 10 MG tablet Take 10 mg by mouth Nightly. donepezil (Aricept) 5 MG tablet doxycycline (Vibra-Tabs) 100 MG tablet ferrous sulfate 325 (65 Fe) MG EC tablet Take 1 tablet (325 mg) by mouth daily (with breakfast). Do not crush, chew, or split. 30 tablet 11 furosemide (Lasix) 40 MG tablet Take 40 mg by mouth in the morning and 40 mg in the evening. insulin glargine (Lantus) 100 UNIT/ML injection Inject 10 Units under the skin Nightly. 10 mL 12 Insulin Lispro (Humalog) 100 UNIT/ML solution injection Inject 0-18 Units under the skin 4 times daily (before meals and nightly). 10 mL 12 lisinopril 10 MG tablet Take 10 mg by mouth daily. loperamide (Imodium) 2 MG capsule nystatin (Mycostatin) 154407 UNIT/GM powder oxyCODONE (Roxicodone) 5 MG immediate release tablet senna-docusate (Helena-Colace) 8.6-50 MG tablet Take 100 tablets by mouth Every 24 hours. REVIEW OF SYSTEMS Pertinent items are noted in HPI. Objective: BP (!) 111/41 (BP Location: Left arm, Patient Position: Lying) Pulse 70 Temp (!) 35.7 C (96.3 F) (Temporal) Resp 18 Ht 1.676 m (5' 5.98") Wt (!) 156 kg (343 lb) SpO2 99% BMI 55.39 kg/m PHYSICAL EXAM General appearance: in no apparent distress, well developed and well nourished, non-toxic, in no respiratory distress and acyanotic, alert, and oriented times 3 Skin: warm and dry Pulmonary: Normal effort, no respiratory distress, no cyanosis Left lyons: Scattered scabbing noted. Dry flaking skin present. No drainage present. Scattered areas of erythema noted. Stable Right lyons: Scattered scabbing noted. Dry flaking skin present. No drainage present. Scattered areas of erythema noted. Stable LABS CBC: Lab Results Component Value Date WBC 9.9 08/06/2022 HGB 10.5 (L) 08/06/2022 HCT 32.0 (L) 08/06/2022 MCV 90.0 08/06/2022 PLT 235 08/06/2022 BMP: Lab Results Component Value Date NA 135 08/07/2022 K 4.5 08/07/2022 CL 101 08/07/2022 CO2 24 08/07/2022 BUN 51 (H) 08/07/2022 CREATININE 1.11 (H) 08/07/2022 PT/INR: No results found for: PROTIME, INR Prealbumin: No results found for: PREALBUMIN Albumin:No components found for: LABALBU Sed Rate:No results found for: SEDRATE Micro: No components found for: BC Assessment/Plan: Left lyons: Venous stasis dermatitis - Clean with Hibiclens then Apply Lac-Hydrin. Leave LINDSEY. Apply daily and PRN. Right lyons: Venous stasis dermatitis - Clean with Hibiclens then Apply Lac-Hydrin. 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 Apply daily and PRN. Nutritional support Wound Care to follow Recommend to follow up at [facility] wound care center after hospital discharge. Any questions or concerns please secure chat "ACH wound/ostomy". Thank you for the consult! I personally obtained the arias and critical portions of the history and physical exam. I reviewed the labs, imaging studies, and electronic medical record. I reviewed the chart documentation and discussed the patient with treatment team members. I have edited the note to reflect my clinical findings and my assessment and plan. Please note, the time of this note does not reflect the time I saw this patient today, but the time of this documentaton. Portions of this note including HPI, ROS, impression/plan, and examination may have been copied forward from admission to today as to provide important historical information essential in contributing to medical decision making. Documentation has been reviewed and edited as necessary to support clinical decision making for today's visit and to reflect my own independent evaluation of this patient. Decision making for today's visit and to reflect my own independent evaluation of this patient. Med Team Progress Note Salazar Coyle : 1950(71 y.o.) Date: August 07, 2022 Med Team: Alvaro Attending: Dr. Tariq Chief Complaint: Hematuria Subjective: - No acute events overnight. - Currently, pt is resting in bed. She had her tunneled line removed today. We discussed dc back to [facility] and she was agreeable. - Her tunneled line was removed by IR this morning. This morning she has no acute complaints. Agreeable to return to [facility]. Review of Systems Constitutional: Negative for chills, fatigue and fever. Respiratory: Negative for cough, shortness of breath and wheezing. Cardiovascular: Negative for chest pain, palpitations and leg swelling. Gastrointestinal: Negative for abdominal pain, constipation, diarrhea, nausea and vomiting. Musculoskeletal: Positive for arthralgias (chronic). Neurological: Negative for dizziness, weakness, light-headedness and headaches. Psychiatric/Behavioral: Negative for agitation. The patient is not nervous/anxious. Agree with above Scheduled Meds:ammonium lactate, , Topical, Daily apixaban, 5 mg, Oral, BID atorvastatin, 20 mg, Oral, Nightly baclofen, 5 mg, Oral, Daily Calcium Carb-Cholecalciferol, 1 tablet, Oral, Daily donepezil, 10 mg, Oral, Nightly ferrous sulfate, 325 mg, Oral, Daily with breakfast [Held by provider] furosemide, 40 mg, Oral, BID insulin glargine, 10 Units, SubCUTAneous, Nightly insulin lispro, 0-12 Units, SubCUTAneous, TID WC insulin lispro, 3 Units, SubCUTAneous, TID WC lisinopril, 10 mg, Oral, Daily melatonin, 3 mg, Oral, Nightly phenazopyridine, 200 mg, Oral, TID WC senna-docusate sodium, 1 tablet, Oral, Nightly sertraline, 50 mg, Oral, Daily sodium chloride 0.9%, 5-40 mL, IntraVENous, q12h Continuous Infusions: PRN meds used in last 24hrs: Oxy 5 mg x3 Objective: BP 133/61 (BP Location: Right arm, Patient Position: Lying) Pulse 83 Temp 36.1 C (97 F) (Temporal) Resp 20 Ht 5' 5.98" (1.676 m) Wt (!) 343 lb (156 kg) SpO2 94% BMI 55.39 kg/m Physical Exam Vitals reviewed. Constitutional: General: She is not in acute distress. Appearance: She is obese. HENT: Head: Normocephalic and atraumatic. Right Ear: External ear normal. Left Ear: External ear normal. Nose: Nose normal. Mouth/Throat: Mouth: Mucous membranes are moist. Pharynx: Oropharynx is clear. Eyes: Extraocular Movements: Extraocular movements intact. Pupils: Pupils are equal, round, and reactive to light. Cardiovascular: Rate and Rhythm: Normal rate and regular rhythm. Pulses: Normal pulses. Heart sounds: Normal heart sounds. Pulmonary: Effort: Pulmonary effort is normal. Breath sounds: Normal breath sounds. Abdominal: General: Abdomen is flat. Bowel sounds are normal. There is no distension. Palpations: Abdomen is soft. Tenderness: There is no abdominal tenderness. Musculoskeletal: Right lower leg: Edema present. Left lower leg: Edema present. Skin: General: Skin is warm and dry. Neurological: General: No focal deficit present. Mental Status: She is alert and oriented to person, place, and time. Mental status is at baseline. Agree with above [facility] within last 24 hours No results found for: WBC, HGB, HCT, PLT, MCV No results found for: NA, K, CL, CO2, BUN, CREATININE, GLUCOSE, CALCIUM, MG, PHOS No results found for: AST, ALT, PROT, BILITOT, ALKPHOS, INR, APTT, LIPASE No results found for: CKTOTAL, CKMB, TROPONINI No results found for: PROCAL, CHOL, TRIG, HDL, TSH, VITD25, HGBA1C, VANCOTROUGH Assessment and Plan: Chronic Indwelling Jose Catheter 2/2 neurogenic bladder Hematuria-resolved Left UPJ Calculus s/p lithotripsy Hx ESBL Sepsis (05/2022) in the setting of UPJ stone and obstructive uropathy - infection ruled out this admit -POD 4 left ureteroscopy, laser lithotripsy and stent exchange -Urine culture negative to date -Monitor off abx, tunneled line removed today -Plan for stent removal with jose change in 4 weeks per urology Agree with above WHITLEY -Cr 1.14 yesterday, pt refused labs this morning, urine output was 1,250 ml yesterday -FEUrea yesterday was consistent with pre-renal and lasix was held, will plan on resuming lasix today -continue to monitor - Stable on recheck - likely due to recent procedure. Recommend recheck BMP in 1 week. OK to resume the Lasix T2DM with Hyperglycemia -Glucose at goal yesterday -Carb controled diet -Will continue Lantus 10 U nightly and Humalog 3 U TID with meals + MDSSI -Hypoglycemia protocol Vascular/Alzheimer Dementia -Donepezil 10 mg daily -Melatonin 1 mg daily -Delirium protocol HFpEF-compensated -Will resume Lasix at 40 mg daily Chronic Pain -Oxycodone 5 mg q6h PRN -Baclofen 5 mg -Senna daily HTN -Lisinopril 10 mg daily HLD -Lipitor 20 mg daily Anxiety -Zoloft 50 mg daily Paroxysmal A. Fib -Eliquis 5 mg bid Morbid Obesity Decreased Mobility -PT/OT PHOEBE noncompliant with CPAP -Continue promote CPAP Chronic LE venous stasis changes -Wound care following appreciate recs Dispo: Pt medically stable for DC, will discuss with TCC about return to [facility] - Goals of Care: FULL CODE - DVT Prophylaxis: Eliquis - GI Prophylaxis: Not Indicated - Diet: Carb-Control Associated attestation - Deacon Tariq MD - 08/07/2022 6:52 PM EDT Attending Supervising Physician's Attestation Statement for Progress Note I have discussed the care of Salazar Coyle with the medical student and/or resident. I have personally taken a history, examined the patient, and performed the associated medical decision making activities. I have reviewed & verified the attested documentation. Unless otherwise noted below, this documentation reflects the history, physical exam, and medical decision making that I performed myself. Please see below for my personal highlights or additions to the note in [place]. Patient seen and examined by myself at 1135 on 08/07/2022 Arias Changes to Plan: Tunneled line was removed this morning. She returns to [facility] today in stable condition. Has a left ureteral stent in place that needs removed with Jose change in 4 weeks. Per Urology: "Patient has a stent placed which is tied to her jose catheter. Does NOT need office urology follow up. When jose is removed the stent will be removed as well." I spent a total of 25 minutes on the day of the visit obtaining history, discussing with consultants and care team, reviewing imaging and laboratory results, performing a physical exam and providing patient education and counseling. 7AM-5PM: Page Resident who wrote note today from Service 5PM-7AM: Page "AI2" or "AI3" (In house Manager Universal) Images from the original note were not included. [facility] - Infectious Diseases Attending Progress Note Subjective: Following for UTI. Chart, vitals, labs reviewed. Pt afebrile. Pt refusing turns and yelling out, hitting staff this morning. Called by primary re: stopping antibiotics and pulled tunneled line. Objective: Vitals: Patient Vitals for the past 24 hrs: BP Temp Temp src Pulse Resp SpO2 08/06/22 0815 118/55 36.4 C (97.5 F) Temporal 87 20 96 % 08/05/22 1924 (!) 130/43 (!) 35.8 C (96.4 F) Temporal 60 16 96 % Physical Exam Vitals and nursing note reviewed. Labs: Lab Results Component Value Date/Time NA 137 08/06/2022 0238 K 5.2 (H) 08/06/2022 0238 CL 102 08/06/2022 0238 CO2 28 08/06/2022 0238 BUN 43 (H) 08/06/2022 0238 CREATININE 1.14 (H) 08/06/2022 0238 CREATININE 1.32 (H) 04/14/2021 0254 GLUCOSE 142 (H) 08/06/2022 0238 CALCIUM 9.0 08/06/2022 0238 PROT 7.0 08/06/2022 0238 BILITOT 0.4 08/06/2022 0238 ALKPHOS 88 08/06/2022 0238 AST 23 08/06/2022 0238 ALT 14 08/06/2022 0238 PROCAL 76.84 (H) 06/11/2022 0322 PROCAL 17.91 (H) 06/09/2022 1640 PROCAL 0.06 03/08/2021 1558 Lab Results Component Value Date/Time WBC 9.9 08/06/2022 0238 HGB 10.5 (L) 08/06/2022 0238 HCT 32.0 (L) 08/06/2022 0238 PLT 235 08/06/2022 0238 GRANULOCYTES 46.9 04/14/2021 0254 LYMPHOPCT 34.6 08/06/2022 0238 MONOPCT 7.1 08/06/2022 0238 LABEOS 5.3 04/14/2021 0254 BASOPCT 0.5 08/06/2022 0238 NEUTROABS 5.3 08/06/2022 0238 Micro: 5/5 urine negative Lines: CVC PIV Radiography/Echo/Other: No new imaging Antimicrobials, Start/End Dates: erta Impression: 1) ESBL E coli sepsis May 2022 c/b UPJ stone and obstructive uropathy, now s/p left ureteroscopy, laser lithotripsy and left ureteral stent exchange 08/03; urine negative Plan: - ok to stop ertapenem - recommend removal of tunneled CVC prior to discharge. - d/w primary - signing off; please call if questions. Gladis Hill MD Based on diagnoses and management, combination of acute and chronic problems, exacerbations and/or acuity, this visit should be considered to be of low complexity. Med Team Progress Note Salazar Coyle : 1950(71 y.o.) Date: August 06, 2022 Med Team: Alvaro Attending: Dr. Rubio Chief Complaint: Hematuria Subjective: - No acute events overnight. - Currently, pt is resting in bed. She is complaining of her chronic leg pain, but has no other complaints. We discussed the plan to talk to ID about getting the central line removed and she was agreeable. Agree with above. Patient seen and examined at bedside and was resting comfortably. No acute overnight events noted. Reports bilateral lower extremity pain, however notes that it is worse on the right side. She states that her right lower extremity pain is currently worse than it is at baseline. She has no other concerns this AM. Review of Systems Constitutional: Negative for chills, fatigue and fever. Respiratory: Negative for cough, shortness of breath and wheezing. Cardiovascular: Negative for chest pain, palpitations and leg swelling. Gastrointestinal: Negative for abdominal pain, constipation, diarrhea, nausea and vomiting. Musculoskeletal: Positive for arthralgias (chronic) and joint swelling (chronic). Negative for myalgias and neck pain. Skin: Positive for color change (chronic le). Negative for rash and wound. Neurological: Negative for dizziness, weakness, light-headedness and headaches. Psychiatric/Behavioral: Negative for agitation. The patient is not nervous/anxious. Scheduled Meds:ammonium lactate, , Topical, Daily apixaban, 5 mg, Oral, BID atorvastatin, 20 mg, Oral, Nightly baclofen, 5 mg, Oral, Daily Calcium Carb-Cholecalciferol, 1 tablet, Oral, Daily donepezil, 10 mg, Oral, Nightly ertapenem, 1,000 mg, IntraVENous, q24h ferrous sulfate, 325 mg, Oral, Daily with breakfast furosemide, 40 mg, Oral, BID insulin glargine, 10 Units, SubCUTAneous, Nightly insulin lispro, 0-12 Units, SubCUTAneous, TID WC insulin lispro, 3 Units, SubCUTAneous, TID WC lisinopril, 10 mg, Oral, Daily melatonin, 3 mg, Oral, Nightly senna-docusate sodium, 1 tablet, Oral, Nightly sertraline, 50 mg, Oral, Daily sodium chloride 0.9%, 5-40 mL, IntraVENous, q12h Continuous Infusions: PRN meds used in last 24hrs: Oxy x 3 Objective: BP (!) 130/43 (BP Location: Left arm, Patient Position: Lying) Pulse 60 Temp (!) 35.8 C (96.4 F) (Temporal) Resp 16 Ht 5' 5.98" (1.676 m) Wt (!) 343 lb (156 kg) SpO2 96% BMI 55.39 kg/m Physical Exam Vitals reviewed. Constitutional: General: She is not in acute distress. Appearance: She is obese. HENT: Head: Normocephalic and atraumatic. Right Ear: External ear normal. Left Ear: External ear normal. Nose: Nose normal. Mouth/Throat: Mouth: Mucous membranes are moist. Pharynx: Oropharynx is clear. Eyes: Extraocular Movements: Extraocular movements intact. Pupils: Pupils are equal, round, and reactive to light. Cardiovascular: Rate and Rhythm: Normal rate and regular rhythm. Pulses: Normal pulses. Heart sounds: Normal heart sounds. Pulmonary: Effort: Pulmonary effort is normal. Breath sounds: Normal breath sounds. Abdominal: General: Abdomen is flat. Bowel sounds are normal. There is no distension. Palpations: Abdomen is soft. Tenderness: There is no abdominal tenderness. Musculoskeletal: Right lower leg: Edema present. Left lower leg: Edema present. Skin: General: Skin is warm and dry. Neurological: General: No focal deficit present. Mental Status: She is alert and oriented to person, place, and time. Mental status is at baseline. Agree with the above physical exam. In addition: Bilateral lower extremities with chronic venous stasis changes. No evidence of cellulitis/infection. She has tenderness to palpation of both lower extremities. Edema is present in the lower extremities bilaterally, however is symmetric and unchanged from previous exam. Right sided chest wall tunneled catheter is in place with dressing c/d/i and is without signs of infection. [facility] within last 24 hours Auto WBC Date Value Ref Range Status 08/06/2022 9.9 3.6 - 10.7 10*3/uL Final Hemoglobin Date Value Ref Range Status 08/06/2022 10.5 (L) 11.7 - 16.0 g/dL Final Hematocrit Date Value Ref Range Status 08/06/2022 32.0 (L) 35.0 - 47.0 % Final Platelets Date Value Ref Range Status 08/06/2022 235 140 - 440 10*3/uL Final MCV Date Value Ref Range Status 08/06/2022 90.0 80.0 - 98.0 fL Final SODIUM Date Value Ref Range Status 08/06/2022 137 135 - 145 mmol/L Final POTASSIUM Date Value Ref Range Status 08/06/2022 5.2 (H) 3.5 - 5.1 mmol/L Final CHLORIDE Date Value Ref Range Status 08/06/2022 102 98 - 107 mmol/L Final CARBON DIOXIDE Date Value Ref Range Status 08/06/2022 28 22 - 30 mmol/L Final UREA NITROGEN Date Value Ref Range Status 08/06/2022 43 (H) 7 - 17 mg/dL Final CREATININE Date Value Ref Range Status 08/06/2022 1.14 (H) 0.52 - 1.04 mg/dL Final GLUCOSE Date Value Ref Range Status 08/06/2022 142 (H) 70 - 100 mg/dL Final CALCIUM Date Value Ref Range Status 08/06/2022 9.0 8.4 - 10.4 mg/dL Final AST (SGOT) Date Value Ref Range Status 08/06/2022 23 15 - 46 U/L Final ALT Date Value Ref Range Status 08/06/2022 14 0 - 34 U/L Final TOTAL PROTEIN Date Value Ref Range Status 08/06/2022 7.0 6.3 - 8.2 g/dL Final BILIRUBIN, TOTAL Date Value Ref Range Status 08/06/2022 0.4 0.2 - 1.3 mg/dL Final ALKALINE PHOSPHATASE Date Value Ref Range Status 08/06/2022 88 38 - 126 U/L Final No results found for: CKTOTAL, CKMB, TROPONINI No results found for: PROCAL, CHOL, TRIG, HDL, TSH, VITD25, HGBA1C, VANCOTROUGH Assessment and Plan: Chronic Indwelling Jose Catheter 2/2 neurogenic bladder Hematuria-resolved Left UPJ Calculus s/p lithotripsy Recent E coli (ESBL) sepsis (05/2022) in the setting of UPJ stone and obstructive uropathy -POD 3 left ureteroscopy, laser lithotripsy and stent exchange -Urine culture negative to date -Discussed abx with ID, plan to stop today -Will have tunneled line removed since no abx needed at this time -Plan for stent removal with jose change in 4 weeks per urology WHITLEY Mild hyperkalemia -Cr 1.14, pt had been refusing labs prior -Will check FEUrea, if prerenal will hold lasix today -continue to monitor Agree. Continue lisinopril for now, however will hold if worsening WHITLEY or hyperkalemia. T2DM with Hyperglycemia -Glucose at goal yesterday -Pt was started on humalog 3 U with meal + MDSSI -Carb controled diet -Will continue Lantus 10 U nightly and Humalog 3 U TID with meals + MDSSI -Hypoglycemia protocol Vascular/Alzheimer Dementia -Donepezil 10 mg daily -Melatonin 1 mg daily -Delirium protocol HFpEF-compensated -Will check FEUrea due to WHITLEY, if consistent with prerenal will hold evening dose of lasix Chronic Pain Worsening RLE pain -Oxycodone 5 mg q6h PRN -Baclofen 5 mg -Senna daily Reporting worsening of RLE pain, however exam is unchanged. If pain persists/worsens or edema worsens would be reasonable to check doppler US. She is on Eliquis, however was held briefly helena-operatively. HTN -Lisinopril 10 mg daily HLD -Lipitor 20 mg daily Anxiety -Zoloft 50 mg daily Paroxysmal A. Fib -Eliquis 5 mg bid Morbid Obesity Decreased Mobility -PT/OT PHOEBE noncompliant with CPAP -Continue promote CPAP Chronic LE venous stasis changes -Wound care following appreciate recs Dispo: Will plan on DC tomorrow if facility accepting - Goals of Care: FULL CODE - DVT Prophylaxis: Eliquis - GI Prophylaxis: Not Indicated - Diet: Carb-Control Associated attestation - Jamie Rubio, - 08/06/2022 11:36 AM EDT I have discussed the care of Salazar Coyle with the medical student and/or resident. I have personally taken a history, examined the patient, and performed the associated medical decision making activities. I have reviewed & verified the attested documentation. Unless otherwise noted below, this documentation reflects the history, physical exam, and medical decision making that I performed myself. Please see note for my personal highlights or additions in Green. Patient seen and examined by myself at 0843 on 08/06/22 Arias Changes to Care Plan: -WHITLEY with Cr up to 1.14 (from 0.77) and BUN 43 (up from 30). Check FeUrea and recheck UA. May be pre-renal in the setting of recent procedure. If urine studies consistent with pre-renal, will hold Lasix. Continue lisinopril for now, however if WHITLEY worsens or develops significant hyperkalemia, will hold. -Discussed with ID. Stopping antibiotics. Remove tunneled line tomorrow. -Patient reported worsening RLE pain this AM. Exam was unchanged from prior. If pain persists/worsens or if she develops worsening edema, will check venous duplex. She is currently on Eliquis, however it was briefly help helena-operatively. 7AM-5PM: contact resident on "[facility] Med B" team (found by hoovering over attending's name on left side of patient's chart) 5PM-7AM: contact AI2 (Med Team A or B) or AI3 (Med Team C or D) I personally spent a total of 35 minutes on the day of the visit obtaining history, discussing with consultants and care team, reviewing imaging and laboratory results, performing a physical exam and providing patient education and counseling. Med Team Progress Note Salazar Coyle : 1950(71 y.o.) Date: August 05, 2022 Med Team: Alvaro Attending: Dr. Rubio Chief Complaint: Hematuria Subjective: - No acute events overnight. - Currently, pt resting in bed. She has no complaints at this time. We discussed the plan of waiting for culture results and changing her to PO abx with the hope to be able to DC this weekend vs Sunday. She was agreeable at this time. Agree with above. Patient seen and examined at bedside and was resting comfortably. No acute overnight events noted. States that overall she feels well and has no new complaints. Review of Systems Constitutional: Negative for chills, fatigue and fever. Respiratory: Negative for cough, shortness of breath and wheezing. Cardiovascular: Negative for chest pain, palpitations and leg swelling. Gastrointestinal: Negative for abdominal pain, constipation, diarrhea, nausea and vomiting. Musculoskeletal: Positive for back pain. Negative for arthralgias and myalgias. Neurological: Negative for dizziness, weakness, light-headedness and headaches. Psychiatric/Behavioral: Negative for agitation. The patient is not nervous/anxious. Scheduled Meds:ammonium lactate, , Topical, Daily apixaban, 5 mg, Oral, BID atorvastatin, 20 mg, Oral, Nightly baclofen, 5 mg, Oral, Daily Calcium Carb-Cholecalciferol, 1 tablet, Oral, Daily donepezil, 10 mg, Oral, Nightly ertapenem, 1,000 mg, IntraVENous, q24h ferrous sulfate, 325 mg, Oral, Daily with breakfast furosemide, 40 mg, Oral, BID insulin glargine, 15 Units, SubCUTAneous, Nightly insulin lispro, 0-12 Units, SubCUTAneous, TID WC insulin lispro, 3 Units, SubCUTAneous, TID WC lisinopril, 10 mg, Oral, Daily melatonin, 3 mg, Oral, Nightly senna-docusate sodium, 1 tablet, Oral, Nightly sertraline, 50 mg, Oral, Daily sodium chloride 0.9%, 5-40 mL, IntraVENous, q12h Continuous Infusions: PRN meds used in last 24hrs: none Objective: BP (!) 113/38 Pulse 69 Temp 36.8 C (98.2 F) (Temporal) Resp 18 Ht 5' 5.98" (1.676 m) Wt (!) 343 lb (156 kg) SpO2 94% BMI 55.39 kg/m Physical Exam Vitals reviewed. Constitutional: General: She is not in acute distress. Appearance: She is obese. HENT: Head: Normocephalic and atraumatic. Right Ear: External ear normal. Left Ear: External ear normal. Nose: Nose normal. Mouth/Throat: Mouth: Mucous membranes are moist. Pharynx: Oropharynx is clear. Eyes: Extraocular Movements: Extraocular movements intact. Pupils: Pupils are equal, round, and reactive to light. Cardiovascular: Rate and Rhythm: Normal rate and regular rhythm. Pulses: Normal pulses. Heart sounds: Normal heart sounds. Pulmonary: Effort: Pulmonary effort is normal. Breath sounds: Normal breath sounds. Abdominal: General: Abdomen is flat. Bowel sounds are normal. There is no distension. Palpations: Abdomen is soft. Tenderness: There is no abdominal tenderness. Musculoskeletal: Right lower leg: Edema present. Left lower leg: Edema present. Skin: General: Skin is warm and dry. Neurological: General: No focal deficit present. Mental Status: She is alert and oriented to person, place, and time. Mental status is at baseline. Agree with the above physical exam. In addition: right sided chest wall tunneled catheter with dressing c/d/i. No erythema or drainage from around the line. Bilateral venous stasis dermatitis noted on lower extremities, no evidence of cellulitis. Jose catheter draining pale/yellow urine, no hematuria. [facility] within last 24 hours No results found for: WBC, HGB, HCT, PLT, MCV No results found for: NA, K, CL, CO2, BUN, CREATININE, GLUCOSE, CALCIUM, MG, PHOS No results found for: AST, ALT, PROT, BILITOT, ALKPHOS, INR, APTT, LIPASE No results found for: CKTOTAL, CKMB, TROPONINI No results found for: PROCAL, CHOL, TRIG, HDL, TSH, VITD25, HGBA1C, VANCOTROUGH Assessment and Plan: Chronic Indwelling Jose Catheter 2/2 neurogenic bladder Hematuria Left UPJ Calculus s/p lithotripsy -POD 2 left ureteroscopy, laser lithotripsy and stent exchange -UA loaded with bacteria, cultures pending -Continue Ertapenem per ID with plans for 7 days total -Will attempt to deescalate to PO after culture returns -If PO abx option available will remove tunneled line -Plan for stent removal with jose change in 4 weeks per urology Agree. Hematuria has resolved. Switched from meropenem to ertapenem yesterday. T2DM with Hyperglycemia -Glucose remained elevated yesterday, peak of 337 -Pt was started on humalog 3 U with meal + MDSSI -Fasting glucose 166 this AM -Changed diet to carb controled -Will continue Lantus 10 U nightly and Humalog 3 U TID with meals + MDSSI -Hypoglycemia protocol Agree. Glucose initially uncontrolled following procedure on 08/03/2022, however glucose is now at inpatient goal of 140-180. Vascular/Alzheimer Dementia -Donepezil 10 mg daily -Melatonin 1 mg daily -Delirium protocol HFpEF-compensated -Lasix 40 mg BID Agree. Appears euvolemic. Chronic Pain -Oxycodone 5 mg q6h PRN -Baclofen 5 mg -Senna daily HTN -Lisinopril 10 mg daily HLD -Lipitor 20 mg daily Anxiety -Zoloft 50 mg daily Paroxysmal A. Fib -Eliquis 5 mg bid Morbid Obesity Decreased Mobility -PT/OT PHOEBE noncompliant with CPAP -Continue promote CPAP Chronic LE venous stasis changes -Wound care following appreciate recs Dispo: plan to DC back to [facility] pending urine culture and ID recs. Likely ready for DC Sunday vs Sunday - Goals of Care: FULL CODE - DVT Prophylaxis: Eliquis - GI Prophylaxis: Not Indicated - Diet: General Associated attestation - Jamie Rubio DO - 08/05/2022 12:42 PM EDT I have discussed the care of Salazar Coyle with the medical student and/or resident. I have personally taken a history, examined the patient, and performed the associated medical decision making activities. I have reviewed & verified the attested documentation. Unless otherwise noted below, this documentation reflects the history, physical exam, and medical decision making that I performed myself. Please see note for my personal highlights or additions in Green. Patient seen and examined by myself at 0906 on 08/05/22 Arias Changes to Care Plan: -s/p left ureteroscopy with laser lithotripsy and stent exchange on 08/03/2022. -ID following, switched to ertapenem yesterday. Urine culture pending. If cultures/sensitivities indicate that a good PO antibiotic is available, can remove tunneled line and complete course with PO antibiotics. -Refused labs this AM, however is agreeable to having them drawn later today. -Anticipate discharge when decision has been made regarding whether the tunneled line can be removed. 7AM-5PM: contact resident on "[facility] Med B" team (found by hoovering over attending's name on left side of patient's chart) 5PM-7AM: contact AI2 (Med Team A or B) or AI3 (Med Team C or D) I personally spent a total of 25 minutes on the day of the visit obtaining history, discussing with consultants and care team, reviewing imaging and laboratory results, performing a physical exam and providing patient education and counseling. Images from the original note were not included. [facility] Wound Care Progress Note Salazar Coyle AGE: 71 y.o. GENDER: female : 1950 Subjective: HISTORY of PRESENT ILLNESS HPI Salazar Coyle is a 71 y.o. female who presents for a wound care follow up. History of Wound Context: 71 y.o. female with PMH Vascular/Alzheimer Dementia, T2DM, Chronic Jose 2/2 neurogenic bladder, Anxiety, Chronic Pain, Morbid Obesity that presented to [facility] on 08/02/2022 from outside facility ([facility]). She was admitted on 06/09 with severe sepsis due to left UPJ calculus s/p stent and abx. She was discharged to [facility] for abx and rehab. She was scheduled to see urology for ureteroscopy, but missed multiple appointments. She was transferred to [facility] ED due to hematuria. Wound Care consulted for bilateral LE. Patient resting in bed. IM provider at bedside. PAST MEDICAL HISTORY Past Medical History: Diagnosis Date A-fib ([facility]) (HCC) Anemia Diabetes ([facility]) Lymphedema Obesity PAST SURGICAL HISTORY History reviewed. No pertinent surgical history. FAMILY HISTORY No family history on file. SOCIAL HISTORY Social History Tobacco Use Smoking status: Never Smokeless tobacco: Never Vaping Use Vaping Use: Never used Substance Use Topics Alcohol use: Never Drug use: Never ALLERGIES Allergies Allergen Reactions Ertapenem MEDICATIONS No current facility-administered medications on file prior to encounter. Current Outpatient Medications on File Prior to Encounter Medication Sig Dispense Refill sertraline (Zoloft) 50 MG tablet Take 50 mg by mouth daily. apixaban (Eliquis) 5 MG tablet Take 1 tablet (5 mg) by mouth 2 times daily for 8 doses. 8 tablet 0 ascorbic acid (Vitamin C) 250 MG tablet Take 250 mg by mouth daily. atorvastatin (Lipitor) 20 MG tablet Take 20 mg by mouth daily. baclofen (Lioresal) 5 MG tablet Take 1 tablet by mouth daily. Calcium Carbonate-Vitamin D (Oyster Shell Calcium/D) 500-5 MG-MCG tablet Take 1 tablet by mouth daily. donepezil (Aricept) 10 MG tablet Take 10 mg by mouth Nightly. donepezil (Aricept) 5 MG tablet doxycycline (Vibra-Tabs) 100 MG tablet ferrous sulfate 325 (65 Fe) MG EC tablet Take 1 tablet (325 mg) by mouth daily (with breakfast). Do not crush, chew, or split. 30 tablet 11 furosemide (Lasix) 40 MG tablet Take 40 mg by mouth in the morning and 40 mg in the evening. insulin glargine (Lantus) 100 UNIT/ML injection Inject 10 Units under the skin Nightly. 10 mL 12 Insulin Lispro (Humalog) 100 UNIT/ML solution injection Inject 0-18 Units under the skin 4 times daily (before meals and nightly). 10 mL 12 lisinopril 10 MG tablet Take 10 mg by mouth daily. loperamide (Imodium) 2 MG capsule nystatin (Mycostatin) 353379 UNIT/GM powder oxyCODONE (Roxicodone) 5 MG immediate release tablet senna-docusate (Helena-Colace) 8.6-50 MG tablet Take 100 tablets by mouth Every 24 hours. REVIEW OF SYSTEMS Pertinent items are noted in HPI. Objective: BP (!) 123/46 (BP Location: Left arm, Patient Position: Lying) Pulse 66 Temp 36.6 C (97.8 F) (Temporal) Resp 18 Ht 1.676 m (5' 5.98") Wt (!) 156 kg (343 lb) SpO2 93% BMI 55.39 kg/m PHYSICAL EXAM General appearance: in no apparent distress, well developed and well nourished, non-toxic, in no respiratory distress and acyanotic, alert, and oriented times 3 Skin: warm and dry Pulmonary: Normal effort, no respiratory distress, no cyanosis Left lyons: Scattered scabbing noted. Dry flaking skin present. No drainage present. Scattered areas of erythema noted. Stable Right ylons: Scattered scabbing noted. Dry flaking skin present. No drainage present. Scattered areas of erythema noted. Stable LABS CBC: Lab Results Component Value Date WBC 8.8 08/03/2022 HGB 10.8 (L) 08/03/2022 HCT 34.1 (L) 08/03/2022 MCV 89.8 08/03/2022 PLT 259 08/03/2022 BMP: Lab Results Component Value Date NA 136 08/03/2022 K 4.5 08/03/2022 CL 101 08/03/2022 CO2 30 08/03/2022 BUN 30 (H) 08/03/2022 CREATININE 0.77 08/03/2022 PT/INR: Lab Results Component Value Date PROTIME 10.5 08/03/2022 INR 1.0 08/03/2022 Prealbumin: No results found for: PREALBUMIN Albumin:No components found for: LABALBU Sed Rate:No results found for: SEDRATE Micro: No components found for: BC Assessment/Plan: Left lyons: Venous stasis dermatitis - Clean with Hibiclens then Apply Lac-Hydrin. 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 Apply daily and PRN. Right lyons: Venous stasis dermatitis - Clean with Hibiclens then Apply Lac-Hydrin. 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 Apply daily and PRN. Nutritional support Wound Care to follow Recommend to follow up at [facility] wound care center after hospital discharge. Any questions or concerns please secure chat "ACH wound/ostomy". Thank you for the consult! I personally obtained the arias and critical portions of the history and physical exam. I reviewed the labs, imaging studies, and electronic medical record. I reviewed the chart documentation and discussed the patient with treatment team members. I have edited the note to reflect my clinical findings and my assessment and plan. Please note, the time of this note does not reflect the time I saw this patient today, but the time of this documentaton. Portions of this note including HPI, ROS, impression/plan, and examination may have been copied forward from admission to today as to provide important historical information essential in contributing to medical decision making. Documentation has been reviewed and edited as necessary to support clinical decision making for today's visit and to reflect my own independent evaluation of this patient. Decision making for today's visit and to reflect my own independent evaluation of this patient. Med Team Progress Note Salazar Coyle : 1950(71 y.o.) Date: August 04, 2022 Med Team: Alvaro Attending: Dr. Tariq Chief Complaint: Hematuria Subjective: - No acute events overnight. - Currently, pt is resting in bed. She has no new complaints at this time. She did have questions about the procedure that were answered. She had no other concerns or questions at this time. No acute complaints this morning. Inquiring about port removal. Review of Systems Constitutional: Negative for chills, fatigue and fever. Respiratory: Negative for cough and shortness of breath. Cardiovascular: Negative for chest pain. Gastrointestinal: Negative for abdominal distention, abdominal pain, constipation, diarrhea, nausea and vomiting. Genitourinary: Negative for hematuria and urgency. Musculoskeletal: Positive for myalgias (chronic leg pain). Skin: Negative for rash. Neurological: Negative for light-headedness. Psychiatric/Behavioral: The patient is not nervous/anxious. Agree with above Scheduled Meds:ammonium lactate, , Topical, Daily [Held by provider] apixaban, 5 mg, Oral, BID atorvastatin, 20 mg, Oral, Nightly baclofen, 5 mg, Oral, Daily Calcium Carb-Cholecalciferol, 1 tablet, Oral, Daily donepezil, 10 mg, Oral, Nightly ferrous sulfate, 325 mg, Oral, Daily with breakfast furosemide, 40 mg, Oral, BID insulin glargine, 10 Units, SubCUTAneous, Nightly insulin lispro, 0-12 Units, SubCUTAneous, TID WC lisinopril, 10 mg, Oral, Daily melatonin, 3 mg, Oral, Nightly senna-docusate sodium, 1 tablet, Oral, Nightly sertraline, 50 mg, Oral, Daily sodium chloride 0.9%, 5-40 mL, IntraVENous, q12h Continuous Infusions: PRN meds used in last 24hrs: none Objective: BP 126/56 (BP Location: Left arm, Patient Position: Lying) Pulse 89 Temp 36.3 C (97.3 F) (Temporal) Resp 18 Ht 5' 5.98" (1.676 m) Wt (!) 343 lb (156 kg) SpO2 94% BMI 55.39 kg/m Physical Exam Vitals reviewed. Constitutional: General: She is not in acute distress. Appearance: She is obese. HENT: Head: Normocephalic and atraumatic. Right Ear: External ear normal. Left Ear: External ear normal. Nose: Nose normal. Mouth/Throat: Mouth: Mucous membranes are moist. Pharynx: Oropharynx is clear. Eyes: Extraocular Movements: Extraocular movements intact. Pupils: Pupils are equal, round, and reactive to light. Cardiovascular: Rate and Rhythm: Normal rate and regular rhythm. Pulses: Normal pulses. Heart sounds: Normal heart sounds. Pulmonary: Effort: Pulmonary effort is normal. Breath sounds: Normal breath sounds. Abdominal: General: Abdomen is flat. Bowel sounds are normal. There is no distension. Palpations: Abdomen is soft. Tenderness: There is no abdominal tenderness. Genitourinary: Comments: Chronic jose Musculoskeletal: Cervical back: Normal range of motion. Right lower leg: Edema present. Left lower leg: Edema present. Skin: General: Skin is warm and dry. Comments: Tunneled catheter right chest wall Neurological: General: No focal deficit present. Mental Status: She is alert. Mental status is at baseline. Agree with above [facility] within last 24 hours No results found for: WBC, HGB, HCT, PLT, MCV No results found for: NA, K, CL, CO2, BUN, CREATININE, GLUCOSE, CALCIUM, MG, PHOS No results found for: AST, ALT, PROT, BILITOT, ALKPHOS, INR, APTT, LIPASE No results found for: CKTOTAL, CKMB, TROPONINI No results found for: PROCAL, CHOL, TRIG, HDL, TSH, VITD25, HGBA1C, VANCOTROUGH Assessment and Plan: Chronic indwelling Jose Catheter 2/2 neurogenic bladder Hematuria Left UPJ Calculus s/p lithotripsy -POD1 left ureteroscopy, laser lithotripsy and stent exchange -Urology recommends continuing IV abx, will await ID recs -Plan to remove tunneled line after ID sees the pt -Will contact urology for void trial prior to DC -F/U outpatient with urology for stent removal in 3-4 weeks Agree with above. Apparently UA with reflex cultures ordered on 08/02 and 08/03 were never collected. UA is loaded with bacteria. Await culture results. Appreciate Infectious Disease Recommendations. Meropenem has been resumed. T2DM with Hyperglycemia -Glucose elevated yesterday, highest >450 -Pt recived 10 U Lantus and her AM fasting was 233 -Due to drop in glucose will continue to monitor -If meal time glucose remains elevated will add scheduled Humalog 3 U TID + SSI -Hypoglycemia protocol - Blood sugars remain uncontrolled in the 300s this afternoon. Add Humalog 3 units with meals. Vascular/Alzheimer Dementia -Donepezil 10 mg daily -Melatonin 3 mg daily -Delirium protocol HFpEF -Lasix 40 mg daily Chronic Pain -Oxycodone 5 mg q6h PRN -Baclofen 5 mg -Senna daily HTN -Lisinopril 10 mg daily HLD -Lipitor 20 mg daily Anxiety -Zoloft 50 mg daily Paroxysmal a. Fib -resume eliquis 5 mg bid Morbid obesity Decreased Mobility -PT/OT PHOEBE noncompliant with CPAP -will continue to promote cpap use Chronic LE venous stasis changes -wound care saw pt, recommend nutritional support, appreciate assistance - Wound care has been following patient at [facility] also ongoing skin care for the venous stasis - Goals of Care: FULL CODE - DVT Prophylaxis: Eliquis - GI Prophylaxis: Not Indicated - Diet: General Associated attestation - Deacon Tariq MD - 08/04/2022 5:18 PM EDT Attending Supervising Physician's Attestation Statement for Progress Note I have discussed the care of Salazar Coyle with the medical student and/or resident. I have personally taken a history, examined the patient, and performed the associated medical decision making activities. I have reviewed & verified the attested documentation. Unless otherwise noted below, this documentation reflects the history, physical exam, and medical decision making that I performed myself. Please see below for my personal highlights or additions to the note in Green. Patient seen and examined by myself at 0935 on 08/04/2022 Arias Changes to Plan: Post op day 1 laser lithotripsy and stent exchange, will need outpatient follow up with urology and Q4 week Jose exchanges. UA obtained loaded with bacteria, await culture. She remains on meropenem. Appreciate ID recommendations, will maintain tunneled line for now. I spent a total of 25 minutes on the day of the visit obtaining history, discussing with consultants and care team, reviewing imaging and laboratory results, performing a physical exam and providing patient education and counseling. 7AM-5PM: Page Resident who wrote note today from IM Service 5PM-7AM: Page "AI2" or "AI3" (In house Manager Universal) UROLOGY PROGRESS NOTE PATIENT NAME: Salazar Coyle DATE OF : 1950 ADMISSION DATE: 08/02/2022 3:26 PM TODAY'S DATE: 08/04/2022 Subjective No acute events overnight. Remains afebrile. No lightheadedness or dizziness. Feels well. Would like to stay in hospital for a few more days. Objective VS: BP 126/56 (BP Location: Left arm, Patient Position: Lying) Pulse 89 Temp 36.3 C (97.3 F) (Temporal) Resp 18 Ht 5' 5.98" (1.676 m) Wt (!) 343 lb (156 kg) SpO2 94% BMI 55.39 kg/m Vitals: 08/03/222046 BP: 126/56 Pulse: 89 Resp: 18 Temp: 36.3 C (97.3 F) SpO2: 94% I & O - 24hr: Intake/Output Summary (Last 24 hours) at 08/04/2022 0708 Last data filed at 08/03/2022 1500 Gross per 24 hour Intake 625.94 ml Output 650 ml Net -24.06 ml Physical Exam: General: Neck: Resp: Abdomen: No acute distress Supple Normal effort, no respiratory distress Soft, non-tender, nondistended : No CVA TTP bilaterally. Skin: Skin color, texture, turgor normal, no rashes or lesions Labs and Imaging Studies Labs: CBC: Recent Labs 08/02/22 1620 08/03/22 0141 WBC 8.0 8.8 HGB 10.8* 10.8* HCT 34.1* 34.1* MCV 89.7 89.8 PLT 241 259 BMP: Recent Labs 08/02/22 1620 08/03/22 0141 NA 136 136 K 4.7 4.5 CL 103 101 CO2 30 30 BUN 29* 30* CREATININE 0.81 0.77 Magnesium: No results found for: MG Phosphate: No results found for: PHOS PT/INR: Recent Labs 08/03/22 0141 PROTIME 10.5 INR 1.0 U/A: No results found for: NITRITE, LEUKOCYTESUR, PHUR, BACTERIA, SPECGRAV, BLOODU, GLUCOSEU, KETONESU Urine Culture: No components found for: LABURIN Imaging Studies: CT Abd/Pel WO IVCON (06/10/22): IMPRESSION: Left UPJ calculus and hydronephrosis. Distended gallbladder with gallstones. Rectal fecal impaction. Atherosclerosis. Pulmonary nodule right lung 13 mm. Consider follow-up in three months. Provided below are a sample published guidelines for follow-up or further evaluation. Assessment and Plan ASSESSMENT: 71 year old female POD#1 s/p left ureteroscopy, laser lithotripsy, and left ureteral stent exchange. PLAN: -Maintain left ureteral stent in place -Continue IV antibiotics, Infectious Disease consulted for further recommendations -Maintain Jose catheter in place -Check CBC, BMP this AM -Discharge with Jose catheter in place; recommend exchanges q4 weeks Addendum. Patient has a stent placed which is tied to her jose catheter. Does NOT need office urology follow up. When jose is removed the stent will be removed as well She is not able to follow up in office due to transportation and mobility and office scope not possible. Dr Bejarano 08/04/22 [id number] Duc Frances MD PGY-3, Urology 08/04/2022 7:08 AM Nutrition Assessment Type and Reason for Visit: Initial, Positive Nutrition Screen (+ 2 MST and wound) Nutrition Recommendations/Plan: Once po resumes, recommend easy to chew, 4 CHO Control and Pete BID (1 pkt provides 90-95 kcals, 14 gm amino acids, 2.5 gm protein). Monitor weight, labs, I/O, skin assessments, malnutrition, and overall nutritional status. RD will follow up. Malnutrition Assessment: Malnutrition Status: Insufficient data. Patient is off the nursing unit. She is NPO. CBW 343 lbs. Epic wt hx: 399# on 04/03/21, 401# on 04/04/21, 392# on 04/05/21, 393# on 04/08/21, 389# on 04/09/21, 289# on 06/09/22, 344# on 06/15/22, 344# on 07/11/22. Nutrition Assessment: PMH vascular and Alzheimer dementia, T2DM, chronic jose 2/2 neurogenic bladder, anxiety, chronic pain, morbid obesity, history of MDR UTI. Recently admitted 06/09 with severe sepsis due to left UPJ calculus- s/p L ureteral stent placement. She was discharged to [facility] for rehab and antibiotics. Patient presented to ED 08/02 with hematuria. Urology is following. Patient is scheduled for LULL today. Patient has been off the nursing unit. Interview is pending. Estimated Daily Nutrient Needs: Energy Requirements Based On: Kcal/kg Weight Used for Energy Requirements: [place] Weight for Energy Calculation (kg): 59 kg Total Energy Requirements (kcals/day): 5521-9799 kcals per day (25-30) Weight Used for Protein Requirements: [place] Weight in Kg Used for Protein Requirements: 59 kg Estimated Total Protein (g/day): 71-83 gm per day (1.2-1.4) Estimated Daily Total Fluid (ml/day): Per MD Nutrition Related Findings: Alex = 13, abdomen soft, rounded, active bowel sounds, + 1 BLE edema, I/O: -550. Meds and labs reviewed. Wound Type: Wound Consult Pending (per flow sheets- redness BLE) Current Nutrition Therapies: NPO diet Current Oral Intake Average Meal Intake: NPO Average Supplements Intake: NPO Anthropometric Measures: Height: 167.6 cm (5' 5.98") Admission Body Weight: 156 kg (343 lb 14.7 oz) (estimated 08/02/22) [place] Body Weight (lbs) (Calculated): 130 lbs [place] Body Weight (Kg) (Calculated): 59 kg Weight Adjustment For: No Adjustment Nutrition Diagnosis: Increased nutrient needs related to other (comment) (skin integrity and wound healing) as evidenced by wounds Nutrition Interventions: Nutrition Education/Counseling: No recommendation at this time Coordination of Nutrition Care: Continue to monitor while inpatient Goals: Goals: Meet at least 75% of estimated needs, by next RD assessment Nutrition Monitoring and Evaluation: Behavioral-Environmental Outcomes: None Identified Food/Nutrient Intake Outcomes: Diet Advancement/Tolerance Physical Signs/Symptoms Outcomes: Biochemical Data, Chewing or Swallowing, GI Status, Fluid Status or Edema, Meal Time Behavior, Nutrition Focused Physical Findings, Skin, Weight Discharge Planning: Too soon to determine Yesenia Dave RD Contact: [phone] Med Team Progress Note Salazar Coyle : 1950(71 y.o.) Date: August 03, 2022 Med Team: Alvaro Attending: Dr. Tariq Chief Complaint: Hematuria Subjective: - No acute events overnight. - Currently, pt in the OR unable to see at this time. Will check on pt in afternoon Review of Systems Unable to obtain, pt in OR Scheduled Meds:[Held by provider] apixaban, 5 mg, Oral, BID atorvastatin, 20 mg, Oral, Nightly baclofen, 5 mg, Oral, Daily Calcium Carb-Cholecalciferol, 1 tablet, Oral, Daily donepezil, 10 mg, Oral, Nightly ferrous sulfate, 325 mg, Oral, Daily with breakfast furosemide, 40 mg, Oral, BID insulin glargine, 10 Units, SubCUTAneous, Nightly insulin lispro, 0-12 Units, SubCUTAneous, TID WC lisinopril, 10 mg, Oral, Daily melatonin, 3 mg, Oral, Nightly meropenem, 2,000 mg, IntraVENous, q8h senna-docusate sodium, 1 tablet, Oral, Nightly sertraline, 50 mg, Oral, Daily sodium chloride 0.9%, 5-40 mL, IntraVENous, q12h Continuous Infusions: PRN meds used in last 24hrs: Oxy 5 mg x1 Objective: BP (!) 119/39 (BP Location: Left arm, Patient Position: Lying) Pulse 59 Temp (!) 35.9 C (96.7 F) (Temporal) Resp 18 Ht 5' 6" (1.676 m) Wt (!) 343 lb (156 kg) SpO2 95% BMI 55.36 kg/m Physical Exam Unable to obtain pt in or [facility] within last 24 hours Auto WBC Date Value Ref Range Status 08/03/2022 8.8 3.6 - 10.7 10*3/uL Final Hemoglobin Date Value Ref Range Status 08/03/2022 10.8 (L) 11.7 - 16.0 g/dL Final 08/02/2022 10.8 (L) 11.7 - 16.0 g/dL Final Hematocrit Date Value Ref Range Status 08/03/2022 34.1 (L) 35.0 - 47.0 % Final Platelets Date Value Ref Range Status 08/03/2022 259 140 - 440 10*3/uL Final MCV Date Value Ref Range Status 08/03/2022 89.8 80.0 - 98.0 fL Final SODIUM Date Value Ref Range Status 08/03/2022 136 135 - 145 mmol/L Final POTASSIUM Date Value Ref Range Status 08/03/2022 4.5 3.5 - 5.1 mmol/L Final CHLORIDE Date Value Ref Range Status 08/03/2022 101 98 - 107 mmol/L Final CARBON DIOXIDE Date Value Ref Range Status 08/03/2022 30 22 - 30 mmol/L Final UREA NITROGEN Date Value Ref Range Status 08/03/2022 30 (H) 7 - 17 mg/dL Final CREATININE Date Value Ref Range Status 08/03/2022 0.77 0.52 - 1.04 mg/dL Final 08/02/2022 0.81 0.52 - 1.04 mg/dL Final GLUCOSE Date Value Ref Range Status 08/03/2022 234 (H) 70 - 100 mg/dL Final CALCIUM Date Value Ref Range Status 08/03/2022 8.9 8.4 - 10.4 mg/dL Final INR Date Value Ref Range Status 08/03/2022 1.0 0.9 - 1.1 Final Comment: Recommended Anticoagulant Therapy: SEE BELOW ----- INR of 2.0 - 3.0 : - Prophylaxis of Venous Thrombosis (high-risk surgery) - Treatment of Venous Thrombosis - Treatment of Pulmonary Embolism (Includes tissue heart valves, Acute Myocardial Infarction to prevent systemic embolism, Valvular Heart Disease, and Atrial Fibrillation) ----- INR of 2.5 - 3.5 : - Mechanical Prosthetic Valves (high risk) - If oral anticoagulant therapy is used to prevent Myocardial Infarction APTT Date Value Ref Range Status 08/03/2022 26.2 20.0 - 30.5 s Final No results found for: CKTOTAL, CKMB, TROPONINI No results found for: PROCAL, CHOL, TRIG, HDL, TSH, VITD25, HGBA1C, VANCOTROUGH Assessment and Plan: Chronic Indwelling Jose Catheter 2/2 neurogenic bladder Hematuria Left UPJ Calculus -Plan for OR with urology today -Continue jose at this time -Will monitor hgb, currently stable -Continue to hold eliquis -Meropenem per urology, will consult ID -NPO Chronic LE Wound -No concern for infection at this time -Will have wound care see pt T2DM with Hyperglycemia -Lantus 10 U nightly +LDSSI -POCG ACHS -Hypoglycemia protocol Vascular/Alzheimer Dementia -Donepezil 10 mg daily -Melatonin 3 mg daily -Delirium protocol HFpEF -currently compensated -Lasix 40 mg bid Chronic pain -Oxycodone 5 mg q6h PRN -Baclofen 5 mg -Senna daily HTN -Lisinopril 10 mg daily HLD -Atorvastatin 20 mg daily Anxiety -Zoloft 50 mg daily Paroxysmal A. Fib -Holding Eliquis due to procedure Morbid Obesity Decreased Mobility -PT/OT - Goals of Care: FULL CODE - DVT Prophylaxis: Holding for OR - GI Prophylaxis: Not Indicated - Diet: NPO Associated attestation - Deacon Tariq MD - 08/03/2022 3:57 PM EDT See attestation on H&P documented in this encounter [facility] 08-07-2022 Note Formatting of this n ote might be different from the original. Discharge med rec and covid transmitted to [facility] for return via [facility] per TCC request. [facility] 08-07-2022 Note Formatting of this n ote might be different from the original. Discharge med rec and covid transmitted to [facility] for return via [facility] per TCC request. [facility] 08-07-2022 Hospital course Narrative Internal Medicine: Med Team Discharge Summary Salazar Coyle : 1950 ADMIT DATE: 08/02/2022 DISCHARGE DATE: 08/07/22 PCP: Paige Rivera DO Visit Status: Admission Code Status: FULL CODE Primary Discharge Diagnosis: Left UPJ Calculus s/p lithotripsy Secondary Discharge Diagnoses: Hematuria-Resolved WHITLEY, prerenal Chronic indwelling jose catheter 2/2 neurogenic bladder T2DM with hyperglycemia Vascular/Alzheimer dementia HFpEF, compensated HTN HLD Anxiety Paroxysmal a. Fib Morbid obesity PHOEBE Chronic LE venous stasis changes Reason for Admission & Hospital Course: Salazar Coyle is a 71 y.o. female that presented to [facility] on 08/02/2022 and was admitted for hematuria. She was previously admitted in may where she was diagnosed with sepsis 2/2 UPJ calculus. She had a ureteral stent placed during that admission, but the stone was still present. She was DC to [facility] with plans for follow up with urology for lithotripsy and stent exchange. She was unable to make it to the follow up appointment due to decreased mobility and lack of transportation. On the day of admission the urology office was called due to concerns for hematuria and the pt was told to present to [facility] ED for medical admit. On examination by the medicine team in the ED the pt had no complaints or signs of infection. She was admitted for UPJ calculus lithotripsy and stent exchange. Due to her previous admission with sepsis she was started on meropenem for abx with an ID consult. She tolerated her procedure well, with plans to remove the stent at there next jose exchange in 4 weeks, and a urine culture showed no growth. Per ID her abx were stopped and her tunneled line that was placed last admission was removed. She was discharged back to [facility] in stable condition. Disposition: [facility] Activity: up with assist Diet: Adult diet Regular; 4 carb choices (60 gm/meal) Discharge Medications: Medication List CHANGE how you take these medications donepezil 10 MG tablet Commonly known as: Aricept What changed: Another medication with the same name was removed. Continue taking this medication, and follow the directions you see here. Insulin Lispro 100 UNIT/ML solution injection Commonly known as: Humalog Inject 3 Units under the skin in the morning and 3 Units at noon and 3 Units in the evening. Inject with meals. What changed: how much to take when to take this oxyCODONE 5 MG immediate release tablet Commonly known as: Roxicodone Take 1 tablet (5 mg) by mouth every 6 hours as needed for severe pain (7-10) for up to 3 days. What changed: how much to take how to take this when to take this reasons to take this CONTINUE taking these medications apixaban 5 MG tablet Commonly known as: Eliquis Take 1 tablet (5 mg) by mouth 2 times daily for 8 doses. ascorbic acid 250 MG tablet Commonly known as: Vitamin C atorvastatin 20 MG tablet Commonly known as: Lipitor baclofen 5 MG tablet Commonly known as: Lioresal ferrous sulfate 325 (65 Fe) MG EC tablet Take 1 tablet (325 mg) by mouth daily (with breakfast). Do not crush, chew, or split. furosemide 40 MG tablet Commonly known as: Lasix insulin glargine 100 UNIT/ML injection Commonly known as: Lantus Inject 10 Units under the skin Nightly. lisinopril 10 MG tablet nystatin 415170 UNIT/GM powder Commonly known as: Mycostatin Oyster Shell Calcium/D 500-5 MG-MCG tablet senna-docusate 8.6-50 MG tablet Commonly known as: [place]-Colace sertraline 50 MG tablet Commonly known as: Zoloft STOP taking these medications doxycycline 100 MG tablet Commonly known as: Vibra-Tabs loperamide 2 MG capsule Commonly known as: Imodium Where to Get Your Medications You can get these medications from any pharmacy Bring a paper prescription for each of these medications oxyCODONE 5 MG immediate release tablet Information about where to get these medications is not yet available Ask your nurse or doctor about these medications Insulin Lispro 100 UNIT/ML solution injection Notable Medication Changes & Reasoning: None Consultants Urology Infectious Disease Wound Care for chronic venous stasis changes Procedures Performed Left Ureteroscopy, Laser lithotripsy and stent exchange per urology Significant Laboratory/Radiographic Data: Cr peak of 1.14, 1.11 on DC (baseline around 0.8) Urine Culture no growth at time of DC Pending Results at Time of Discharge None Follow Up Appointment(s): Paige Rivera DO [address] [place] [id number] Call in 1 week(s) For hospital follow up Items to Address at Followup Visit: Will need repeat BMP in 1 week to monitor kidney function Stent to be removed with next jose change per urology (tied to jose will come out with exchange) Associated attestation - Deacon Tariq MD - 08/07/2022 10:18 PM EDT Attending Supervising Physician's Attestation Statement for Discharge I performed an independent evaluation of the patient and discussed the management with the resident physician. I reviewed and agree with the findings and plan as documented in their note except as amended in BOLD. See attestation on progress note 08/07/22 Discharge: Time spent on discharge <30 minutes. documented in this encounter [facility] 08-07-2022 Nurse Note To IR for tunnel line removal , pt with a Right internal jugular tunnel central line Pt positioned, prepped and draped per protocol. Pro glide double lumen catheter removed with cuff and catheter length intact site post hold no bleeding or hematoma site benign . Dry dressing applied. Pt tolerated well denies complaints [facility] 08-07-2022 Nurse Note To IR for tunnel line removal , pt with a Right internal jugular tunnel central line Pt positioned, prepped and draped per protocol. Pro glide double lumen catheter removed with cuff and catheter length intact site post hold no bleeding or hematoma site benign . Dry dressing applied. Pt tolerated well denies complaints Pt refused morning labs and refusing turns. Dr. Beaulieu made aware. Pt refusing turns. Yelling out and swatting at staff when attempting to turn and see if pt had BM. Pt refused AM lab draw Pt refused labs this AM. Attempts made by phlebotomy and story writer. Pt educated. Verbalizes understanding. Dr. Jha notified documented in this encounter [facility] 08-07-2022 Nurse Note Pt refused morning labs and refusing turns. Dr. Beaulieu made aware. [facility] 08-06-2022 Nurse Note Pt refusing turns. Yelling out and swatting at staff when attempting to turn and see if pt had BM. [facility] 08-05-2022 Nurse Note Pt refused AM lab draw [facility] 08-04-2022 Consult note Associated Order (s): IP CONSULT TO INFECTIOUS DISEASES Images from the original note were not included. [facility] - Infectious Diseases Attending Consult Note Reason for Consult: H/o ESBL E coli sepsis from source, POD#1 cystoscopy, lithotripsy and stent exchange. History of Present Illness: 71 yo F. Morbidle obese, chronic pain, with UPJ calculus and obstructive uropathy with ESBL E coli sepsis in May 2022, treated with IV antibiotic for 2 weeks, apparently stable and improved, except for intermittent pelvic and flank apin, and hematuria. Her planned stent management was delayed form July to July(transportation issues, patient does not recall plans), but eventually had this performed on 08/03. Apparently purulence noted and started back on Meropenem. She reported feeling better with relief of her SP and flank pain symptoms(? If stent spasms), but today feels weak and"off". No fevers, chills. Patient is bed-bound, denies nasuea, or diarrhea. No URI symptoms either. Does not recall any antibiotic allergy. She took Ertapenem in may. Still has tunneled line since last hospitalization. Past Medical History: Past Medical History: Diagnosis Date A-fib (CMS/HCC) (HCC) Anemia Diabetes (HCC) Lymphedema Obesity Past Surgical History: History reviewed. No pertinent surgical history. Current Medications: Current Facility-Administered Medications Medication Dose Route Frequency Provider Last Rate Last Admin acetaminophen (Tylenol) tablet 650 mg 650 mg Oral q6h PRN Nate Kerline, DO 650 mg at 08/03/22 0326 Or acetaminophen (Tylenol) suppository 650 mg 650 mg Rectal q6h PRN Nate Kerline, DO ammonium lactate (Lac-Hydrin) 12 % lotion Topical Daily Nate Kerline, DO apixaban (Eliquis) tablet 5 mg 5 mg Oral BID Nate Kerline, DO atorvastatin (Lipitor) tablet 20 mg 20 mg Oral Nightly Nate Kerline, DO 20 mg at 08/03/222134 baclofen (Lioresal) tablet 5 mg 5 mg Oral Daily Nate Kerline, DO 5 mg at 08/04/22930 Calcium Carb-Cholecalciferol 500-5 MG-MCG per tablet 1 tablet 1 tablet Oral Daily Nate Kerline, DO 1 tablet at 08/04/22930 dextrose 5 % infusion 100 mL/hr IntraVENous PRN Nate Kerline, DO dextrose 50 % solution 12.5 g 12.5 g IntraVENous PRN Nate Kerline, DO donepezil (Aricept) tablet 10 mg 10 mg Oral Nightly Nate Kerline, DO 10 mg at 08/03/222134 ferrous sulfate tablet 325 mg 325 mg Oral Daily with breakfast Nate Kerline, DO 325 mg at 08/04/22930 furosemide (Lasix) tablet 40 mg 40 mg Oral BID Nate Kerline, DO 40 mg at 08/04/22930 glucagon (human recombinant) injection 1 mg 1 mg IntraMUSCular PRN Nate Kerline, DO glucose oral gel 15 g 15 g Oral PRN Nate Kerline, DO insulin glargine (Lantus) injection 10 Units 10 Units SubCUTAneous Nightly Nate Kerline, DO 10 Units at 08/03/222134 Insulin Lispro (Humalog) injection 0-12 Units 0-12 Units SubCUTAneous TID WC Nate Kerline, DO 4 Units at 08/04/22933 lisinopril tablet 10 mg 10 mg Oral Daily Nate Kerline, DO 10 mg at 08/04/22930 melatonin tablet 3 mg 3 mg Oral Nightly Nate Kerline, DO 3 mg at 08/03/222134 ondansetron ODT (Zofran-ODT) disintegrating tablet 4 mg 4 mg Oral q8h PRN Nate Kerline, DO Or ondansetron (Zofran) injection 4 mg 4 mg IntraVENous q6h PRN Nate Kerline, DO 4 mg at 08/03/22 123 oxyCODONE (Roxicodone) immediate release tablet 5 mg 5 mg Oral q6h PRN Nate Kerline, DO 5 mg at 08/03/222145 polyethylene glycol (PEG) 3350 (Miralax) packet 17 g 17 g Oral Daily PRN Nate Kerline, DO senna-docusate sodium (Senokot-S) 8.6-50 MG tablet 1 tablet 1 tablet Oral Nightly Nate Kerline, DO 1 tablet at 08/03/22 213 sertraline (Zoloft) tablet 50 mg 50 mg Oral Daily Nate Kerline, DO 50 mg at 08/04/22 0931 sodium chloride 0.9 % infusion 5-250 mL/hr IntraVENous PRN Nate Kerline, DO New Bag at 08/03/22 1137 sodium chloride 0.9% (NS) flush 5-40 mL 5-40 mL IntraVENous q12h Nate Kerline, DO 10 mL at 08/04/22 0931 sodium chloride 0.9% (NS) flush 5-40 mL 5-40 mL IntraVENous PRN Nate Kerline, DO Allergies: Allergies Allergen Reactions Ertapenem Social History: Social History Socioeconomic History Marital status: Spouse name: Not on file Number of children: Not on file Years of education: Not on file Highest education level: Not on file Occupational History Not on file Tobacco Use Smoking status: Never Smokeless tobacco: Never Vaping Use Vaping Use: Never used Substance and Sexual Activity Alcohol use: Never Drug use: Never Sexual activity: Not Currently Other Topics Concern Not on file Social History Narrative Not on file Social Determinants of Health Financial Resource Strain: Not on file Food Insecurity: Not on file Transportation Needs: Not on file Physical Activity: Not on file Stress: Not on file Social Connections: Not on file Intimate Partner Violence: Not on file Housing Stability: Not on file Family History: No family history on file. Review of Systems: Review of Systems Constitutional: Positive for fatigue. Negative for chills and fever. HENT: Negative for congestion. Mouth sores: chronic. Respiratory: Negative for cough and shortness of breath. Cardiovascular: Positive for leg swelling. Negative for chest pain. Gastrointestinal: Negative. Genitourinary: Positive for difficulty urinating (chronic jose), flank pain and pelvic pain (improved after yesterday's surgery). Musculoskeletal: Positive for arthralgias (chronic hips and knees; bedbound), back pain and gait problem. Negative for myalgias. Skin: Negative for wound. Neurological: Positive for weakness (generalized). Negative for headaches. Psychiatric/Behavioral: Negative. Vitals: Patient Vitals for the past 24 hrs: BP Temp Temp src Pulse Resp SpO2 08/04/22 0733 (!) 123/46 36.6 C (97.8 F) Temporal 66 18 93 % 08/03/22 2047 126/56 36.3 C (97.3 F) Temporal 89 18 94 % 08/03/22 1639 (!) 141/69 (!) 35.9 C (96.6 F) Temporal 85 18 96 % 08/03/22 1600 133/61 -- -- 78 16 97 % 08/03/22 1545 133/55 -- -- 78 16 97 % 08/03/22 1530 (!) 141/53 -- -- 79 16 95 % 08/03/22 1515 (!) 129/49 -- -- 77 14 99 % 08/03/22 1500 (!) 146/95 -- -- 80 16 99 % 08/03/22 1445 127/63 -- -- 77 16 99 % 08/03/22 1430 130/56 -- -- 76 16 97 % 08/03/22 1415 (!) 145/54 -- -- 76 16 98 % 08/03/22 1400 126/51 -- -- 73 16 100 % 08/03/22 1345 (!) 156/65 -- -- 75 16 100 % 08/03/22 1330 (!) 146/58 -- -- 74 16 100 % 08/03/22 1315 131/58 -- -- 75 16 99 % 08/03/22 1300 129/57 -- -- 77 16 99 % 08/03/22 1254 (!) 114/40 36.1 C (97 F) Temporal 86 16 100 % Physical Exam: Physical Exam Vitals reviewed. Constitutional: General: She is not in acute distress. Appearance: Normal appearance. She is obese. She is not ill-appearing or toxic-appearing. HENT: Mouth/Throat: Mouth: Mucous membranes are moist. Pharynx: Oropharynx is clear. Eyes: General: No scleral icterus. Extraocular Movements: Extraocular movements intact. Conjunctiva/sclera: Conjunctivae normal. Pupils: Pupils are equal, round, and reactive to light. Cardiovascular: Rate and Rhythm: Regular rhythm. Pulses: Normal pulses. Heart sounds: Normal heart sounds. No murmur heard. Pulmonary: Effort: Pulmonary effort is normal. No respiratory distress. Breath sounds: Normal breath sounds. No wheezing, rhonchi or rales. Abdominal: General: There is no distension. Palpations: Abdomen is soft. Tenderness: There is no abdominal tenderness. Musculoskeletal: General: Deformity (s/p R foot ray amputation; healed) present. Normal range of motion. Cervical back: Normal range of motion and neck supple. Lymphadenopathy: Cervical: No cervical adenopathy. Skin: General: Skin is warm and dry. Coloration: Skin is not jaundiced. Findings: No erythema or rash (hyperkeratotic plaques to legs). Neurological: General: No focal deficit present. Mental Status: She is oriented to person, place, and time. Cranial Nerves: No cranial nerve deficit. Motor: Weakness (to LEs) present. Psychiatric: Mood and Affect: Mood normal. Thought Content: Thought content normal. Labs: Recent Labs 08/02/22 1620 08/03/22 0141 NA 136 136 K 4.7 4.5 CL 103 101 CO2 30 30 BUN 29* 30* CREATININE 0.81 0.77 GLUCOSE 239* 234* CALCIUM 8.7 8.9 Recent Labs 08/02/22 1620 08/03/22 0141 WBC 8.0 8.8 HGB 10.8* 10.8* HCT 34.1* 34.1* PLT 241 259 LYMPHOPCT 23.7 28.2 MONOPCT 6.8 5.8 BASOPCT 0.8 0.7 NEUTROABS 5.1 5.5 Micro: No results for input(s): COVID19 in the last 72 hours. 08/02 UA and Urine culture ordered:obtained today Previous cultures: 06/14 BC: CONS 06/11 BC E coli x1 set 06/09 BC E coli 06/10Urine cx (operative) E coli, anaerobic GPR 06/09 Urine cx: E coli-ESBL Lines: Tunneled line since May 2022 Radiography/Echo/Other: reviewed Antimicrobials,Start/End Dates: Meropenem 08/02- Vancomycin x1 Previously treated with Ertapenem to 06/24. No recent antibiotics from [facility] in July Impression: Nephrolithiasis, s/p cystoscopy, lithotripsy and stent exchange POD#1- on empiric antibiotics once more. Cultures pending. Recent ESBL E coli sepsis from above, treated for 2 weeks in May. CKD- stable right now DMT2-per Primary service Alzheimer's Dementia- per Primary Chronic pain Lymphedema- stable for now Debility ?Ertapenem allergy, she tolerated this in May,. Plan: De-escalate to Ertapenem, and plan up to 7 day course given recent procedure. Hopefully , po option available. DC tunneled line if no longer needed. Based on diagnoses and management, combination of acute and chronic problems, exacerbations and/or acuity, this visit should be considered to be of moderate complexity. Total time 75 minutes on this day of encounter includes counseling, coordinating plan of care, record and documentation review before and after visit including documentation and time not explicitly included on EMR time stamp for accounting for open encounter. [employer] Work Phone: 08-04-2022 Consult note Associated Order (s): IP CONSULT TO INFECTIOUS DISEASES Images from the original note were not included. [facility] - Infectious Diseases Attending Consult Note Reason for Consult: H/o ESBL E coli sepsis from source, POD#1 cystoscopy, lithotripsy and stent exchange. History of Present Illness: 71 yo F. Morbidle obese, chronic pain, with UPJ calculus and obstructive uropathy with ESBL E coli sepsis in May 2022, treated with IV antibiotic for 2 weeks, apparently stable and improved, except for intermittent pelvic and flank apin, and hematuria. Her planned stent management was delayed form July to July(transportation issues, patient does not recall plans), but eventually had this performed on 08/03. Apparently purulence noted and started back on Meropenem. She reported feeling better with relief of her SP and flank pain symptoms(? If stent spasms), but today feels weak and"off". No fevers, chills. Patient is bed-bound, denies nasuea, or diarrhea. No URI symptoms either. Does not recall any antibiotic allergy. She took Ertapenem in may. Still has tunneled line since last hospitalization. Past Medical History: Past Medical History: Diagnosis Date A-fib (CMS/HCC) (HCC) Anemia Diabetes (HCC) Lymphedema Obesity Past Surgical History: History reviewed. No pertinent surgical history. Current Medications: Current Facility-Administered Medications Medication Dose Route Frequency Provider Last Rate Last Admin acetaminophen (Tylenol) tablet 650 mg 650 mg Oral q6h PRN Nate Kerline, DO 650 mg at 08/03/22 0326 Or acetaminophen (Tylenol) suppository 650 mg 650 mg Rectal q6h PRN Nate Kerline, DO ammonium lactate (Lac-Hydrin) 12 % lotion Topical Daily Nate Kerline, DO apixaban (Eliquis) tablet 5 mg 5 mg Oral BID Nate Kerline, DO atorvastatin (Lipitor) tablet 20 mg 20 mg Oral Nightly Nate Kerline, DO 20 mg at 08/03/222134 baclofen (Lioresal) tablet 5 mg 5 mg Oral Daily Nate Kerline, DO 5 mg at 08/04/22930 Calcium Carb-Cholecalciferol 500-5 MG-MCG per tablet 1 tablet 1 tablet Oral Daily Nate Kerline, DO 1 tablet at 08/04/22930 dextrose 5 % infusion 100 mL/hr IntraVENous PRN Nate Kerline, DO dextrose 50 % solution 12.5 g 12.5 g IntraVENous PRN Nate Kerline, DO donepezil (Aricept) tablet 10 mg 10 mg Oral Nightly Nate Kerline, DO 10 mg at 08/03/222134 ferrous sulfate tablet 325 mg 325 mg Oral Daily with breakfast Nate Kerline, DO 325 mg at 08/04/22930 furosemide (Lasix) tablet 40 mg 40 mg Oral BID Nate Kerline, DO 40 mg at 08/04/22930 glucagon (human recombinant) injection 1 mg 1 mg IntraMUSCular PRN Nate Kerline, DO glucose oral gel 15 g 15 g Oral PRN Nate Kerline, DO insulin glargine (Lantus) injection 10 Units 10 Units SubCUTAneous Nightly Nate Kerline, DO 10 Units at 08/03/222134 Insulin Lispro (Humalog) injection 0-12 Units 0-12 Units SubCUTAneous TID WC Nate Kerline, DO 4 Units at 08/04/22933 lisinopril tablet 10 mg 10 mg Oral Daily Nate Kerline, DO 10 mg at 08/04/22930 melatonin tablet 3 mg 3 mg Oral Nightly Nate Kerline, DO 3 mg at 08/03/222134 ondansetron ODT (Zofran-ODT) disintegrating tablet 4 mg 4 mg Oral q8h PRN Nate Kerline, DO Or ondansetron (Zofran) injection 4 mg 4 mg IntraVENous q6h PRN Nate Kerline, DO 4 mg at 08/03/22 1236 oxyCODONE (Roxicodone) immediate release tablet 5 mg 5 mg Oral q6h PRN Nate Kerline, DO 5 mg at 08/03/222145 polyethylene glycol (PEG) 3350 (Miralax) packet 17 g 17 g Oral Daily PRN Nate Kerline, DO senna-docusate sodium (Senokot-S) 8.6-50 MG tablet 1 tablet 1 tablet Oral Nightly Nate Kerline, DO 1 tablet at 08/03/222134 sertraline (Zoloft) tablet 50 mg 50 mg Oral Daily Nate Kerline, DO 50 mg at 08/04/22 0931 sodium chloride 0.9 % infusion 5-250 mL/hr IntraVENous PRN Nate Kerline, DO New Bag at 08/03/22 1137 sodium chloride 0.9% (NS) flush 5-40 mL 5-40 mL IntraVENous q12h Nate Kerline, DO 10 mL at 08/04/22 0931 sodium chloride 0.9% (NS) flush 5-40 mL 5-40 mL IntraVENous PRN Nate Kerline, DO Allergies: Allergies Allergen Reactions Ertapenem Social History: Social History Socioeconomic History Marital status: Spouse name: Not on file Number of children: Not on file Years of education: Not on file Highest education level: Not on file Occupational History Not on file Tobacco Use Smoking status: Never Smokeless tobacco: Never Vaping Use Vaping Use: Never used Substance and Sexual Activity Alcohol use: Never Drug use: Never Sexual activity: Not Currently Other Topics Concern Not on file Social History Narrative Not on file Social Determinants of Health Financial Resource Strain: Not on file Food Insecurity: Not on file Transportation Needs: Not on file Physical Activity: Not on file Stress: Not on file Social Connections: Not on file Intimate Partner Violence: Not on file Housing Stability: Not on file Family History: No family history on file. Review of Systems: Review of Systems Constitutional: Positive for fatigue. Negative for chills and fever. HENT: Negative for congestion. Mouth sores: chronic. Respiratory: Negative for cough and shortness of breath. Cardiovascular: Positive for leg swelling. Negative for chest pain. Gastrointestinal: Negative. Genitourinary: Positive for difficulty urinating (chronic jose), flank pain and pelvic pain (improved after yesterday's surgery). Musculoskeletal: Positive for arthralgias (chronic hips and knees; bedbound), back pain and gait problem. Negative for myalgias. Skin: Negative for wound. Neurological: Positive for weakness (generalized). Negative for headaches. Psychiatric/Behavioral: Negative. Vitals: Patient Vitals for the past 24 hrs: BP Temp Temp src Pulse Resp SpO2 08/04/22 0733 (!) 123/46 36.6 C (97.8 F) Temporal 66 18 93 % 08/03/22 2047 126/56 36.3 C (97.3 F) Temporal 89 18 94 % 08/03/22 1639 (!) 141/69 (!) 35.9 C (96.6 F) Temporal 85 18 96 % 08/03/22 1600 133/61 -- -- 78 16 97 % 08/03/22 1545 133/55 -- -- 78 16 97 % 08/03/22 1530 (!) 141/53 -- -- 79 16 95 % 08/03/22 1515 (!) 129/49 -- -- 77 14 99 % 08/03/22 1500 (!) 146/95 -- -- 80 16 99 % 08/03/22 1445 127/63 -- -- 77 16 99 % 08/03/22 1430 130/56 -- -- 76 16 97 % 08/03/22 1415 (!) 145/54 -- -- 76 16 98 % 08/03/22 1400 126/51 -- -- 73 16 100 % 08/03/22 1345 (!) 156/65 -- -- 75 16 100 % 08/03/22 1330 (!) 146/58 -- -- 74 16 100 % 08/03/22 1315 131/58 -- -- 75 16 99 % 08/03/22 1300 129/57 -- -- 77 16 99 % 08/03/22 1254 (!) 114/40 36.1 C (97 F) Temporal 86 16 100 % Physical Exam: Physical Exam Vitals reviewed. Constitutional: General: She is not in acute distress. Appearance: Normal appearance. She is obese. She is not ill-appearing or toxic-appearing. HENT: Mouth/Throat: Mouth: Mucous membranes are moist. Pharynx: Oropharynx is clear. Eyes: General: No scleral icterus. Extraocular Movements: Extraocular movements intact. Conjunctiva/sclera: Conjunctivae normal. Pupils: Pupils are equal, round, and reactive to light. Cardiovascular: Rate and Rhythm: Regular rhythm. Pulses: Normal pulses. Heart sounds: Normal heart sounds. No murmur heard. Pulmonary: Effort: Pulmonary effort is normal. No respiratory distress. Breath sounds: Normal breath sounds. No wheezing, rhonchi or rales. Abdominal: General: There is no distension. Palpations: Abdomen is soft. Tenderness: There is no abdominal tenderness. Musculoskeletal: General: Deformity (s/p R foot ray amputation; healed) present. Normal range of motion. Cervical back: Normal range of motion and neck supple. Lymphadenopathy: Cervical: No cervical adenopathy. Skin: General: Skin is warm and dry. Coloration: Skin is not jaundiced. Findings: No erythema or rash (hyperkeratotic plaques to legs). Neurological: General: No focal deficit present. Mental Status: She is oriented to person, place, and time. Cranial Nerves: No cranial nerve deficit. Motor: Weakness (to LEs) present. Psychiatric: Mood and Affect: Mood normal. Thought Content: Thought content normal. Labs: Recent Labs 08/02/22 1620 08/03/22 0141 NA 136 136 K 4.7 4.5 CL 103 101 CO2 30 30 BUN 29* 30* CREATININE 0.81 0.77 GLUCOSE 239* 234* CALCIUM 8.7 8.9 Recent Labs 08/02/22 1620 08/03/22 0141 WBC 8.0 8.8 HGB 10.8* 10.8* HCT 34.1* 34.1* PLT 241 259 LYMPHOPCT 23.7 28.2 MONOPCT 6.8 5.8 BASOPCT 0.8 0.7 NEUTROABS 5.1 5.5 Micro: No results for input(s): COVID19 in the last 72 hours. 5/3 UA and Urine culture ordered:obtained today Previous cultures: 06/14 BC: CONS 06/11 BC E coli x1 set 06/09 BC E coli 06/10Urine cx (operative) E coli, anaerobic GPR 06/09 Urine cx: E coli-ESBL Lines: Tunneled line since May 2022 Radiography/Echo/Other: reviewed Antimicrobials,Start/End Dates: Meropenem 08/02- Vancomycin x1 Previously treated with Ertapenem to 06/24. No recent antibiotics from [facility] in July Impression: Nephrolithiasis, s/p cystoscopy, lithotripsy and stent exchange POD#1- on empiric antibiotics once more. Cultures pending. Recent ESBL E coli sepsis from above, treated for 2 weeks in May. CKD- stable right now DMT2-per Primary service Alzheimer's Dementia- per Primary Chronic pain Lymphedema- stable for now Debility ?Ertapenem allergy, she tolerated this in May,. Plan: De-escalate to Ertapenem, and plan up to 7 day course given recent procedure. Hopefully , po option available. DC tunneled line if no longer needed. Based on diagnoses and management, combination of acute and chronic problems, exacerbations and/or acuity, this visit should be considered to be of moderate complexity. Total time 75 minutes on this day of encounter includes counseling, coordinating plan of care, record and documentation review before and after visit including documentation and time not explicitly included on EMR time stamp for accounting for open encounter. Associated Order(s): IP WOUND CARE NURSE CONSULT TO EVAL Images from the original note were not included. [facility] Wound Care CONSULT Note Salazar Coyle AGE: 71 y.o. GENDER: female : 1950 Subjective: HISTORY of PRESENT ILLNESS HPI Salazar Coyle is a 71 y.o. female who presents for a wound consult. History of Wound Context: 71 y.o. female with PMH Vascular/Alzheimer Dementia, T2DM, Chronic Jose 2/2 neurogenic bladder, Anxiety, Chronic Pain, Morbid Obesity that presented to [facility] on 08/02/2022 from outside facility ([facility]) She was admitted on 3/10 with severe sepsis due to left UPJ calculus s/p stent and abx. She was discharged to [facility] for abx and rehab. She was scheduled to see urology for ureteroscopy, but missed multiple appointments. She was transferred to [facility] ED due to hematuria. Wound Care consulted for bilateral LE. Patient resting in bed at time of visit. PAST MEDICAL HISTORY Past Medical History: Diagnosis Date A-fib (CMS/HCC) (HCC) Anemia Diabetes (HCC) Lymphedema Obesity PAST SURGICAL HISTORY History reviewed. No pertinent surgical history. FAMILY HISTORY No family history on file. SOCIAL HISTORY Social History Tobacco Use Smoking status: Never Smokeless tobacco: Never Vaping Use Vaping Use: Never used Substance Use Topics Alcohol use: Never Drug use: Never ALLERGIES Allergies Allergen Reactions Ertapenem MEDICATIONS No current facility-administered medications on file prior to encounter. Current Outpatient Medications on File Prior to Encounter Medication Sig Dispense Refill sertraline (Zoloft) 50 MG tablet Take 50 mg by mouth daily. apixaban (Eliquis) 5 MG tablet Take 1 tablet (5 mg) by mouth 2 times daily for 8 doses. 8 tablet 0 ascorbic acid (Vitamin C) 250 MG tablet Take 250 mg by mouth daily. atorvastatin (Lipitor) 20 MG tablet Take 20 mg by mouth daily. baclofen (Lioresal) 5 MG tablet Take 1 tablet by mouth daily. Calcium Carbonate-Vitamin D (Oyster Shell Calcium/D) 500-5 MG-MCG tablet Take 1 tablet by mouth daily. donepezil (Aricept) 10 MG tablet Take 10 mg by mouth Nightly. donepezil (Aricept) 5 MG tablet doxycycline (Vibra-Tabs) 100 MG tablet ferrous sulfate 325 (65 Fe) MG EC tablet Take 1 tablet (325 mg) by mouth daily (with breakfast). Do not crush, chew, or split. 30 tablet 11 furosemide (Lasix) 40 MG tablet Take 40 mg by mouth in the morning and 40 mg in the evening. insulin glargine (Lantus) 100 UNIT/ML injection Inject 10 Units under the skin Nightly. 10 mL 12 Insulin Lispro (Humalog) 100 UNIT/ML solution injection Inject 0-18 Units under the skin 4 times daily (before meals and nightly). 10 mL 12 lisinopril 10 MG tablet Take 10 mg by mouth daily. loperamide (Imodium) 2 MG capsule nystatin (Mycostatin) 912621 UNIT/GM powder oxyCODONE (Roxicodone) 5 MG immediate release tablet senna-docusate (Helena-Colace) 8.6-50 MG tablet Take 100 tablets by mouth Every 24 hours. REVIEW OF SYSTEMS Pertinent items are noted in HPI. Objective: BP (!) 145/52 Pulse 56 Temp 37 C (98.6 F) (Temporal) Resp 18 Ht 1.676 m (5' 5.98") Wt (!) 156 kg (343 lb) SpO2 100% BMI 55.39 kg/m PHYSICAL EXAM General appearance: in no apparent distress, well developed and well nourished, non-toxic, in no respiratory distress and acyanotic, alert, and oriented times 3 Skin: warm and dry Pulmonary: Normal effort, no respiratory distress, no cyanosis Left lyons: Scattered scabbing noted. Dry flaking skin present. No drainage present. Scattered areas of erythema noted. Right lyons: Scattered scabbing noted. Dry flaking skin present. No drainage present. Scattered areas of erythema noted. LABS CBC: Lab Results Component Value Date WBC 8.8 08/03/2022 HGB 10.8 (L) 08/03/2022 HCT 34.1 (L) 08/03/2022 MCV 89.8 08/03/2022 PLT 259 08/03/2022 BMP: Lab Results Component Value Date NA 136 08/03/2022 K 4.5 08/03/2022 CL 101 08/03/2022 CO2 30 08/03/2022 BUN 30 (H) 08/03/2022 CREATININE 0.77 08/03/2022 PT/INR: Lab Results Component Value Date PROTIME 10.5 08/03/2022 INR 1.0 08/03/2022 Prealbumin: No results found for: PREALBUMIN Albumin:No components found for: LABALBU Sed Rate:No results found for: SEDRATE Micro: No components found for: BC Assessment/Plan: Left lyons: Venous stasis dermatitis - Apply Lac-Hydrin. 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 Apply daily and PRN. Right lyons: Venous stasis dermatitis - Apply Lac-Hydrin. Leave LINDSEY. Apply daily and PRN. Nutritional support Wound Care to follow Recommend to follow up at [facility] wound care center after hospital discharge. Any questions or concerns please secure chat "ACH wound/ostomy". Thank you for the consult! I personally obtained the arias and critical portions of the history and physical exam. I reviewed the labs, imaging studies, and electronic medical record. I reviewed the chart documentation and discussed the patient with treatment team members. I have edited the note to reflect my clinical findings and my assessment and plan. Please note, the time of this note does not reflect the time I saw this patient today, but the time of this documentaton. Portions of this note including HPI, ROS, impression/plan, and examination may have been copied forward from admission to today as to provide important historical information essential in contributing to medical decision making. Documentation has been reviewed and edited as necessary to support clinical decision making for today's visit and to reflect my own independent evaluation of this patient. Decision making for today's visit and to reflect my own independent evaluation of this patient. Associated Order(s): IP CONSULT TO UROLOGY Urology Inpatient Consultation 08/03/2022 HISTORY OF PRESENT ILLNESS: The patient is a 71 y.o.female known to DR. Bejarano for history of septic left ureteral calculus s/p L ureteral stent placement 06/10. She is scheduled for [facility] today. She is admitted with hematuria. Hospital course revealed: WBC: 8.8 Cr: 0.77 She is on meropenem She reports no pain or fever. Understands plan for OR. Jose with yellow urine. PAST MEDICAL HISTORY: Past Medical History: Diagnosis Date A-fib (CMS/HCC) (HCC) Anemia Diabetes (HCC) Lymphedema Obesity PAST SURGICAL HISTORY: History reviewed. No pertinent surgical history. ALLERGIES: Allergies Allergen Reactions Ertapenem CURRENT MEDICATIONS: No current facility-administered medications on file prior to encounter. Current Outpatient Medications on File Prior to Encounter Medication Sig Dispense Refill sertraline (Zoloft) 50 MG tablet Take 50 mg by mouth daily. apixaban (Eliquis) 5 MG tablet Take 1 tablet (5 mg) by mouth 2 times daily for 8 doses. 8 tablet 0 ascorbic acid (Vitamin C) 250 MG tablet Take 250 mg by mouth daily. atorvastatin (Lipitor) 20 MG tablet Take 20 mg by mouth daily. baclofen (Lioresal) 5 MG tablet Take 1 tablet by mouth daily. Calcium Carbonate-Vitamin D (Oyster Shell Calcium/D) 500-5 MG-MCG tablet Take 1 tablet by mouth daily. donepezil (Aricept) 10 MG tablet Take 10 mg by mouth Nightly. donepezil (Aricept) 5 MG tablet doxycycline (Vibra-Tabs) 100 MG tablet ferrous sulfate 325 (65 Fe) MG EC tablet Take 1 tablet (325 mg) by mouth daily (with breakfast). Do not crush, chew, or split. 30 tablet 11 furosemide (Lasix) 40 MG tablet Take 40 mg by mouth in the morning and 40 mg in the evening. insulin glargine (Lantus) 100 UNIT/ML injection Inject 10 Units under the skin Nightly. 10 mL 12 Insulin Lispro (Humalog) 100 UNIT/ML solution injection Inject 0-18 Units under the skin 4 times daily (before meals and nightly). 10 mL 12 lisinopril 10 MG tablet Take 10 mg by mouth daily. loperamide (Imodium) 2 MG capsule nystatin (Mycostatin) 750839 UNIT/GM powder oxyCODONE (Roxicodone) 5 MG immediate release tablet senna-docusate (Helena-Colace) 8.6-50 MG tablet Take 100 tablets by mouth Every 24 hours. FAMILY HISTORY: No family history on file. Social History: Social History Socioeconomic History Marital status: Spouse name: Not on file Number of children: Not on file Years of education: Not on file Highest education level: Not on file Occupational History Not on file Tobacco Use Smoking status: Never Smokeless tobacco: Never Vaping Use Vaping Use: Never used Substance and Sexual Activity Alcohol use: Never Drug use: Never Sexual activity: Not Currently Other Topics Concern Not on file Social History Narrative Not on file Social Determinants of Health Financial Resource Strain: Not on file Food Insecurity: Not on file Transportation Needs: Not on file Physical Activity: Not on file Stress: Not on file Social Connections: Not on file Intimate Partner Violence: Not on file Housing Stability: Not on file ROS: Constitutional: negative for chills and fevers Respiratory: negative for hemoptysis and shortness of breath Cardiovascular: negative for dyspnea and syncope Gastrointestinal: negative for jaundice, nausea and vomiting Genitourinary: pos for hematuria Hematologic/lymphatic: negative for bleeding and lymphadenopathy Integumentary: no new bruises or lesions Musculoskeletal:negative for muscle weakness or pain Neurological: negative for coordination problems and seizures All other systems negative PHYSICAL EXAM: VITALS: BP 134/57 (BP Location: Left arm, Patient Position: Lying) Pulse 66 Temp 36.1 C (96.9 F) (Temporal) Resp 18 Ht 5' 6" (1.676 m) Wt (!) 343 lb (156 kg) SpO2 99% BMI 55.36 kg/m General: Alert, in no acute distress Head: Normocephalic, atraumatic Neck: supple, trachea is midline, no obvious masses Respiratory: no respiratory distress, normal effort, no audible wheezes Cardiovascular: regular pulse and no cyanosis Musculoskeletal: normal tone in all four extremities Skin: warm and dry Psych: normal mood and affect Abdomen: soft, non distended, non tender : no cva ttp, jose in place draining yellow urine DATA: LABS: BMP: Lab Results Component Value Date GLUCOSE 234 (H) 08/03/2022 CALCIUM 8.9 08/03/2022 NA 136 08/03/2022 K 4.5 08/03/2022 CO2 30 08/03/2022 CL 101 08/03/2022 BUN 30 (H) 08/03/2022 CREATININE 0.77 08/03/2022 CBC: Lab Results Component Value Date WBC 8.8 08/03/2022 HGB 10.8 (L) 08/03/2022 HCT 34.1 (L) 08/03/2022 MCV 89.8 08/03/2022 PLT 259 08/03/2022 Urinalysis: N/A Urine Culture: Hx MDR e coli RADIOLOGY: No imaging this admission IMPRESSION: 71 y.o. female with left stent in place and history of MDR UTI PLAN: - NPO for OR - Continue meropenem - OR today as planned - Continue care per primary Thank you for allowing me to participate in the care of your patient. Veronika Bains MD Urology PGY-3 08/03/2022 6:29 AM Page Hand Cutter Resident with questions Associated attestation - Annette Bejarano DO - 08/06/2022 5:31 PM EDT Images from the original note were not included. Attending Physician's Attestation I have personally seen and evaluated the patient and agree with the resident's assessment and plan. OR today for cysto left ureteroscopy with laser lithotripsy and stent change Please do not hesitate to reach out to the urology team with additional questions or concerns Annette Bejarano DO [facility] [place] [facility] documented in this encounter [facility] 08-04-2022 Hospital Discharge instructions Annette Bejarano DO - 08/04/2022 7:24 AM EDT Images from the original note were not included. Stent is tied to jose catheter - when jose exchange/removed the stent will be removed at that time Laser Lithotripsy These are general instructions for you to follow after your surgery. Your doctor or a member of his or her staff will outline any additional or special instructions that pertain to you. What is a Laser Lithotripsy? A laser lithotripsy is a method for using lasers to remove stones that are located in the urinary tract. This could include stones in the bladder, kidneys, ureters, or urethra. A small flexible camera called a ureteroscope is inserted into the urethra and up the ureter until it reaches the location of the kidney stone. The doctor can then use a laser to break up a kidney stone and a small basket to remove small stones or stone fragments. A ureteral stent is often left in place after the procedure to help with healing. What are the advantages of laser lithotripsy? Laser lithotripsy is a minimally invasive procedure, and does not involve any incisions. It has been shown to be effective no matter the size, location, and/ or hardness of the stone. It also reduces the risk of steinstrasse (where several stones fragments line up in the ureter and block urine flow). How long does surgery take? Surgery will take 1-2 hours to complete. Will I have to stay in the hospital? No. This is an outpatient procedure, so you should be able to go home the same day that the procedure is performed. Are there risks with a laser lithotripsy procedure? There are risks with any surgical procedure. Risks of laser lithotripsy in particular include pain, blood in the urine, difficulty urinating, injury to the bladder or ureters when removing the stone, and infection. General anesthesia also has the risk of breathing problems, heart attack and stroke in patients who are high risk. Before Surgery: - A packet of information will be sent to you. It contains helpful information, details about how to prepare for surgery, and where to arrive on the day of surgery. Maps and local hotel information are sent to persons from out of town. If you have questions or have not received this information, please call our office at . - All patients having surgery will need a physical completed to clear them medically for surgery. Pre-operative testing is completed approx. 1-2 weeks before your planned surgery. These tests will be done either at your pre-operative day at [facility], [facility], or with your regular doctor. - Some patients may require additional testing such as a stress test or cardiac clearance. - At the time of your pre-operative visit the following tests may be completed: Blood work, an EKG, and/ or a Chest X-ray - The day before your surgery you will need to call the surgical scheduling office to confirm your arrival time. - Do NOT eat or drink anything after midnight the night before your surgery. Medications: - Your information packet will contain a list of medications that need to be stopped before surgery. - Stop taking all herbal remedies 2 weeks before your surgery. - Please make certain that we know if you take medication that affected bleeding or is a blood thinner. Examples of these include Coumadin, Warfarin or Plavix. A safe plan will need to be made about how and when you take this medication near the time of your surgery. The Day of Surgery - Please report to the designated area at your confirmed arrival time. - Before you are taken to the operating room, you will change into a gown and have an IV started. - An anesthesiologist will come speak with you about the surgery and answer any questions that you may have. - Your family may stay with you in the pre-op area until you are taken to the operating room. Home Going Instructions: Activity: You are encouraged to walk every day, increasing the distance each day. You may go up and down steps, but please rest when you are tired. - Do NOT drive for 2-3 weeks after surgery or until you are not taking pain medications. You may ride in a car or plane. Be sure to get up and walk every 1-2 hours when traveling long distances. - Avoid strenuous activity for 1-2 days after surgery (running, jumping, lifting more than 10 lbs.) After that, NO limitations regarding lifting. Diet and Fluid Intake: Eating a well balanced diet is important. If you were on a specific diet before your surgery, you should return to that diet. Otherwise, there are no diet restrictions after surgery. Do NOT drink alcoholic beverages while taking pain medications. Drink at least 8 glasses of fluid per day, preferably water. Bowel Management: Constipation sometimes occurs after surgery, especially when taking pain medication. Eating a well-balanced diet and maintaining a good fluid intake are often all that is necessary to return to you pre-surgical bowel regimen. It is important not to strain excessively when having a bowel movement for the first several weeks following your surgery. A stool softener such as Colace may be helpful. You can purchase stool softeners without a prescription at your local drug store. If a stool softener is not enough to relieve your constipation, you may try taking Milk of Magnesia. You may use over the counter medicine, such a Gas-X, if you experience gas pains after surgery. Ureteral Stent: Most people experience some discomfort with a stent in place. Common symptoms include back pain, urinary frequency and urgency. Some people report burning with urination as well. You may see some blood off and on in your urine, especially after you are active. While these symptoms are common with a stent, if you are having a lot of pain that is not controlled with oral medications, please call our office to discuss your symptoms. Showering: You may shower when you get home from the hospital. Ok to swim and use a tub as well as long as the stent placed does not have a string attached. Pain Medications: Your doctor will prescribe the appropriate pain medication for you. Take these pills only as directed and only if you need them. If you are experiencing mild discomfort, you should take Tylenol or Ibuprofen. NEVER mix alcohol with prescription pain medications. Pain medication may make you drowsy. Do not take pain medication when doing any activity that requires coordination, such as driving. Infection: Report the following warning signs of infection to your doctor immediately: A temperature of 100.4 degrees or greater --> Proceed to ER immediately Unable to urinate. Sudden onset of increased pain or tenderness Increased amount of blood in the urine, or passing large blood clots Miscellaneous It is normal for you to have minor discomfort after your surgery. However, if there are any significant changes in your condition--such as shortness of breath, difficulty breathing, or pain or uneven swelling in your legs--please go to the Emergency Room immediately Return to Work: If you work in an office and are not lifting or doing strenuous activity, you may return to work when comfortable. If your work involves strenuous activity, you may need more time before returning to work. If necessary, our office can provide a letter stating the date that you may return to work. Follow-up Appointments Follow-up appointments will be scheduled by our office. If you have any questions, please call . Ureteral Stent Placement A ureteral stent may be placed for to alleviate swelling around your kidney caused by a blockage. Before Surgery: - A packet of information will be sent to you. It contains helpful information, details about how to prepare for surgery, and where to arrive on the day of surgery. Maps and local hotel information are sent to persons from out of town. If you have questions or have not received this information, please call our office at . - All patients having surgery will need a physical completed to clear them medically for surgery. Pre-operative testing is completed approx. 1-2 weeks before your planned surgery. These tests will be done either at your pre-operative day at [facility], [facility], or with your regular doctor. - Some patients may require additional testing such as a stress test or cardiac clearance. - At the time of your pre-operative visit the following tests may be completed: Blood work, an EKG, and/ or a Chest X-ray - The day before your surgery you will need to call the surgical scheduling office to confirm your arrival time. - NO FOOD (including candy, mints or gum), milk or milk products after midnight the night before surgery. - We encourage you to drink clear fluids up to 2 hours before your surgery including water, pulp-free juice (no orange juice), soda, clear tea, black coffee (no creamer or coffee). Medications: - Your information packet will contain a list of medications that need to be stopped before surgery. - Do not take Aspirin, Motrin or Ibuprofen for 2 weeks before surgery. - Stop taking all herbal remedies 2 weeks before your surgery. - Please make certain that we know if you take medication that affected bleeding or is a blood thinner. Examples of these include Coumadin, Warfarin or Plavix. A safe plan will need to be made about how and when you take this medication near the time of your surgery. The Day of Surgery - Please report to the designated area at your confirmed arrival time. - Before you are taken to the operating room, you will change into a gown and have an IV started. - An anesthesiologist will come speak with you about the surgery and answer any questions that you may have. - Your family may stay with you in the pre-op area until you are taken to the operating room. Home Going Instructions: Ureteral Stent: Most people experience some discomfort with a stent in place. Common symptoms include back pain, urinary frequency and urgency. You may see some blood off and on in your urine, especially after you are active. While these symptoms are common with a stent, if you are having a lot of pain, please call our office to discuss your symptoms. Infection: Report the following warning signs of infection to your doctor immediately: A temperature of 101 degrees or greater Unable to urinate. Sudden onset of increased pain or tenderness Increased amount of blood in the urine, or passing large blood clots Miscellaneous It is normal for you to have minor discomfort after your surgery. However, if there are any significant changes in your condition--such as shortness of breath, difficulty breathing, or pain or uneven swelling in your legs--please go to the Emergency Room. Return to Work: If you work in an office and are not lifting or doing strenuous activity, you may return to work when comfortable. If your work involves strenuous activity, you may need more time before returning to work. If necessary, our office can provide a letter stating the date that you may return to work. Follow-up Appointments The stent may stay in place for up to 4-6 months and may be removed after this time period or be exchanged in surgery. Your doctor will decide if and when this need to be performed. Follow-up appointments will be scheduled by our office. If you have any questions, please call . 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 No Past Surgical History: History reviewed. No pertinent surgical history. Immunization History: Immunization History Administered Date(s) Administered Covid-19, Moderna Bivalent Booster, (Age 18y+), Im, 50 Mcg/d 05/10/2022 Influenza, High Dose Seasonal, Preservative Free 01/07/2018 Influenza, Unspecified 01/31/2017 Pfizer SARS-CoV-2 Vaccination 04/20/2020, 05/11/2020 Pneumococcal Polysaccharide PPSV23 01/31/2017 Active Problems: Medical Problems Problem List * (Principal) Inflammatory reaction due to indwelling ureteral stent, initial encounter (HCC) Edema Septic shock ([facility]) (HCC) Hypertension Foot ulcer (HCC) Hyperlipemia Bladder spasm Type 2 diabetes mellitus with hyperglycemia ([facility]/HCC) ([facility]) Overview Signed 01/14/2022 2:38 PM by Interface, Incoming Problems- [facility] Conversion Important Lab History: HBA1C: 09/2015: >13%, 10/2015: 10.4% Thyroid Function Testing: Renal Function Testin12/2015: Creatinine 0.81 Urine for Microalbumin: Lipid Profile: Liver Profile: Dilated Eye Exam: 09/2015: Hospitalized, Doctor Dmitriy consulted, was on orals at that time, HbA1C was over 13%, insulin was started. 12/2015: First time office visit for Type 2 Diabetes Mellitus management. Known to Doctor Dmitriy through consultation at [facility]. Long acting insulin: Insulin used for this is called: Levemir Bedtime dose 85 units Rapid acting /mealtime insulin: Insulin used for this is called: Novolog Breakfast dose: 40 units Lunchtime dose 40 units Supper dose 40 units States since hospital discharge readings have been significantly above goal. Describes going to Primary Care Provider office and they recently increased insulin to the above doses. I spent a good deal of time with insulin education, after patient provided me a return demonstration, she HAS NOT been injecting insulin at all this whole time. This is likely why she has required less insulin when hospitalized since nurses were administering the insulin. There are two protective caps on the needle, she was only removing the outer one, therefore; has not been actually injecting the insulin. She states she didn't know why it felt like the insulin was running down her skin. States she was never taught the proper way to administer insulin. Denies frequent periods of hypoglycemia. I reviewed its signs and symptoms. 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 ([facility]) Recurrent UTI Cerebrovascular accident ([facility]) Hyperglycemia Chronic indwelling Jose catheter Overview Signed 01/14/2022 2:39 PM by Interface, Incoming Problems- [facility] Conversion Notes refer to chronic jose going back to 2019 CKD (chronic kidney disease) Asymptomatic bacteriuria Anemia Isolation/Infection: Contact MRSA, ESBL Nurse Assessment: Last Vital Signs: BP (!) 123/46 (BP Location: Left arm, Patient Position: Lying) Pulse 66 Temp 36.6 C (97.8 F) (Temporal) Resp 18 Ht 1.676 m (5' 5.98") Wt (!) 156 kg (343 lb) SpO2 93% BMI 55.39 kg/m Last documented pain score (0-10 scale): Last Weight: Wt Readings from Last 1 Encounters: 08/02/22 (!) 156 kg (343 lb) Mental Status: oriented but forgetful at times IV Access: JENN IV Access: None Nursing Mobility/ADLs: Walking Total assistance Transfer Total assistance Bathing Total assistance Dressing Total assistance Toileting Total assistance Feeding Total assistance Store Assistant Total assistance Med Delivery yes Wound Care Documentation and Therapy: Wound/Incision 06/09/22 Coccyx (Active) Number of days: 55 Wound/Incision 06/09/22 Venous Ulcer Pretibial Right (Active) Number of days: 55 Wound/Incision 06/09/22 Venous Ulcer Pretibial Left (Active) Number of days: 55 Wound/Incision 06/10/22 Traumatic Leg Left;Proximal;Upper;Posterior (Active) Number of days: 54 Wound/Incision 06/10/22 Amputation site - Toe Anterior;Right (Active) Number of days: 54 Elimination: Continence: Bowel: no Bladder: yes Urinary Catheter: Insertion date: 08/03/22 Colostomy/Ileostomy/Ileal Conduit: None Date of Last BM: 08/07/22 Intake/Output Summary (Last 24 hours) at 08/04/2022 0801 Last data filed at 08/03/2022 1500 Gross per 24 hour Intake 625.94 ml Output 650 ml Net -24.06 ml I/O last 3 completed shifts: In: 625.9 (4 mL/kg) [I.V.:262 (1.7 mL/kg); IV Piggyback:363.9] Out: 1200 (7.7 mL/kg) [Urine:1200 (0.2 mL/kg/hr)] Weight: 155.6 kg Safety Concerns: none Impairments/Disabilities: none Nutrition Therapy: Current Nutrition Therapy: Oral diet: general Routes of Feeding: oral Liquids: no restrictions Daily Fluid Restriction: no Last Modified Barium Swallow with Video (Video Swallowing Test): not done Treatments at the Time of Hospital Discharge: Respiratory Treatments: none Oxygen Therapy: is not on home oxygen therapy. Ventilator: No ventilator support Rehab Therapies: physical and occupational therapy Weight Bearing Status/Restrictions: no restriction Other Medical Equipment (for information only, NOT a DME order): none Other Treatments: none Patient's personal belongings (please select all that are sent with patient): none RN SIGNATURE: MANAGEMENT/SOCIAL WORK SECTION Inpatient Status Date: 08/02/2022 Readmission Risk Assessment Score: @[email or web address]@ Discharging to Facility/ Agency Name: [facility] Address: [address] [place] [address] [place] [address] Fax: Dialysis Facility (if applicable) Name: Address: Dialysis Schedule: Phone: Fax: Call Center Coordinator/Occupational Therapist Assistant signature: ICIAN SECTION Prognosis: good Condition at Discharge: stable Rehab Potential (if transferring to Rehab): fair Recommended Labs or Other Treatments After Discharge: Repeat BMP in 1 week to monitor kidney function. Physician Certification: I certify the above information and transfer of Salazar Coyle is necessary for the continuing treatment of the diagnosis listed and that she requires correction facility for less than 30 days. Update Admission H&P: No change in H&P PHYSICIAN SIGNATURE: documented in this encounter [facility] 08-04-2022 Nurse Note Pt refused labs this AM. Attempts made by phlebotomy and story writer. Pt educated. Verbalizes understanding. Dr. Jha notified [facility] 08-03-2022 Note Formatting of this n ote might be different from the original. Return Referral placed to [facility] via [facility] per TCC request. Await review and response regarding ability to accept. TCC notified. [facility] 08-03-2022 Note Formatting of this n ote might be different from the original. Return Referral placed to [facility] via [facility] per TCC request. Await review and response regarding ability to accept. TCC notified. [facility] 08-03-2022 Note Formatting of this n ote might be different from the original. Care Managment Initial Assessment Date: 08/03/2022 Patient Name: Salazar Coyle : 1950 Patient Information Source of Information: Patient Registered Nurse Maternity Name/Contact Information: Deidra tomlin Cognition/Language: WFL - Within Functional Limits, Other (Comment) (patient off of floor, per daughter some minor dementia) Permission given to speak with patient career services representative/caregiver as indicated: Yes Confirmation of Payer with patient/family: Yes Payer Name: Aetna Medicare/ [place] Medicaid [place]: No Confirmation of Primary Care Physician: Confirmed PCP Name: MD at facility Seen in last 2 years?: Yes Primary Caregiver: Other (Comment) (facility staff) If assistance needed, confirmed caregiver ready, willing and able to care for patient at discharge: No Confirmed with: nabor Gay Living Arrangements Facility: Residential[facility] Facility Name: [facility] Plan to Return: Yes Lives with: Other (Comment) (at facility) Support Systems: Children, Comments (Other) (facility staff) Activities of Daily Living Ambulation: Total Care Bathing/Dressing: Total Care Elimination/Continence/Toileting: Total Care Feeding: Assistance Who Assists with Activities of Daily Living: facility staff Instrumental Activities of Daily Living Prescription Coverage: Yes Pharmacy Used: facility Medication Management: Transportation/Shopping: Assistance Provider Transportation/Shopping Assistance Provider Name: cot transport when needed Transportation Mode: Needs Assistance with Transportation at Discharge: Yes Meal Preparation: Assistance Provider Meal Prep Assistance Provider Name: facility Laundry/Cleaning: Assistance Provider Laundry/Cleaning Assistance Provider Name: facility Finances/Bill Paying: Communication: Independent Types of Care Services/Equipment Utilized Durable Medical Equipment: Hospital Bed Patient's Goal/Discharge Plan Patient expects to be discharged to: return to facility Discharge Planning Actions: Continue to follow, Correction Facility referral indicated [place] of choice: [place] of choice discussed (no choice list needed; patient is a return) Patient's Choice Rights and [employer] and Collaborative Relationships Disclosed as Indicated for Post-Acute Care: NA Interdisciplinary Team Engagement: PT/OT Social Work Referral for: Additional Information: Introduced self and role to patient nabor Gay via telephone. Patient admitted for hematuria. Urology consulted and patient taken to OR for scheduled stent removal. +iv meropenum for UTI. Per daughter plan is return to [facility], she is bedbound and has been at the facility for a few years now. Anticipate discharge in 1-2 days pending medical stability. ICHTHYOLOGY TEACHER tasked to place return referral. TCC to continue to follow. Christina Rivera RN [facility] 08-03-2022 Note Formatting of this n ote might be different from the original. Care Managment Initial Assessment Date: 08/03/2022 Patient Name: Salazar Coyle : 1950 Patient Information Source of Information: Patient Registered Nurse Maternity Name/Contact Information: Deidra Vang daughter Cognition/Language: WFL - Within Functional Limits, Other (Comment) (patient off of floor, per daughter some minor dementia) Permission given to speak with patient career services representative/caregiver as indicated: Yes Confirmation of Payer with patient/family: Yes Payer Name: Aetna Medicare/ [place]: No Confirmation of Primary Care Physician: Confirmed PCP Name: MD at facility Seen in last 2 years?: Yes Primary Caregiver: Other (Comment) (facility staff) If assistance needed, confirmed caregiver ready, willing and able to care for patient at discharge: No Confirmed with: nabor Gay Living Arrangements Facility: Residential/[facility] Care Facility Name: [facility] Plan to Return: Yes Lives with: Other (Comment) (at facility) Support Systems: Children, Comments (Other) (facility staff) Activities of Daily Living Ambulation: Total Care Bathing/Dressing: Total Care Elimination/Continence/Toileting: Total Care Feeding: Assistance Who Assists with Activities of Daily Living: facility staff Instrumental Activities of Daily Living Prescription Coverage: Yes Pharmacy Used: facility Medication Management: Transportation/Shopping: Assistance Provider Transportation/Shopping Assistance Provider Name: cot transport when needed Transportation Mode: Needs Assistance with Transportation at Discharge: Yes Meal Preparation: Assistance Provider Meal Prep Assistance Provider Name: facility Laundry/Cleaning: Assistance Provider Laundry/Cleaning Assistance Provider Name: facility Finances/Bill Paying: Communication: Independent Types of Care Services/Equipment Utilized Durable Medical Equipment: Hospital Bed Patient's Goal/Discharge Plan Patient expects to be discharged to: return to facility Discharge Planning Actions: Continue to follow, [place] Facility referral indicated [place] of choice: [place] of choice discussed (no choice list needed; patient is a return) Patient's Choice Rights and [employer] and Collaborative Relationships Disclosed as Indicated for Post-Acute Care: NA Interdisciplinary Team Engagement: PT/OT Social Work Referral for: Additional Information: Introduced self and role to patient daughter Deidra via telephone. Patient admitted for hematuria. Urology consulted and patient taken to OR for scheduled stent removal. +iv meropenum for UTI. Per daughter plan is return to [facility], she is bedbound and has been at the facility for a few years now. Anticipate discharge in 1-2 days pending medical stability. ICHTHYOLOGY TEACHER tasked to place return referral. TCC to continue to follow. Christina Rivera RN [facility] 08-03-2022 Note Formatting of this n ote might be different from the original. Patient very drowsy, unable to answer questions or follow commands. VSS. Dr. Long at bedside. Orders to give patient additional time and continue to monitor. T [facility] 08-03-2022 Note Formatting of this n ote might be different from the original. Patient very drowsy, unable to answer questions or follow commands. VSS. Dr. Long at bedside. Orders to give patient additional time and continue to monitor. T [facility] 08-03-2022 Note Formatting of this n ote might be different from the original. UROLOGY OPERATIVE REPORT PATIENT NAME: Salazar Coyle DATE OF : 1950 TODAY'S DATE: 08/03/2022 PreOp Dx: Left ureteral calculus, left stent PostOp Dx: Same Operation: Cystoscopy Left ureteroscopy with laser lithotripsy Left ureteral stent exchange Surgeon: Annette Bejarano DO Steno Pool Supervisor: Nate Kerline, DO, PGY 5 Anesthesia: General endotracheal EBL: Minimal Wound classification: Clean contaminated Implants: 6 [place] by 26 cm JJ left ureteral stent tied to a 20 [place] urethral Jose catheter Drains/Packing: None Jose: 20 [place] Jose catheter with 20 cc in balloon Specimens: None sent Complications: none apparent Condition: Stable to PACU Indication for Procedure: Salazar Coyle is a 71 y.o. female who presents with left ureteral calculus. She had previously undergone stent placement during an period of severe sepsis when she was admitted at [facility]. She presents today for definitive stone management in the form of laser lithotripsy and stent exchange.. After having a discussion on treatment options, risks and benefits, the patient wishes to proceed forward with surgical intervention Description of Procedure: Patient was brought to the operating room and placed on the operative table. Induction per anesthesia. Meropenem was administered preoperative antibiotic, positioned in a modified dorsolithotomy fashion. Patient has severe lower extremity immobility, contractures secondary to arthritis and a nonambulatory status for the past 5 years. She also has severe skin thickening and flaking to bilateral lower extremities with pressure sores to her gluteus. This was present on admission and was present on her last admission as well. We were able to place SCDs and legs were padded and secured to the stirrups to the best of our ability in order to prevent any pressure injuries.. Patient was then prepped and draped in the normal sterile fashion, a timeout was performed and all parties were in agreement. X-ray was performed, this reveals a calcification overlying the left kidney, there is an indwelling stent. Using a rigid scope we atraumatically into the bladder to perform a cystourethroscopy. Urethra is capacious and there is somewhat eroded noted. There is noted to be a somewhat small capacity bladder likely secondary to long-term indwelling catheter, there is noted to be catheter cystitis. Stent is seen with curl in the bladder. We will hold of the role extracorporeally and attempted to pass a wire through the stent but it was calcified. We reentered the bladder and using an open-ended catheter and a sensor wire we are able to cannulate the left ureteral orifice and passed a wire up to the level of the knee. Stent was then removed. A 12/14 [place] short ureteral access sheath was passed over the wire, we then used a flexible ureteroscope to perform pyeloscopy. The large proximal stone was identified along with a couple other renal stones seen on CT scan. 200 mg Jenifer holmium laser fiber was used to perform stone dusting. All fragments were smaller than proximally 1 mm at the termination of the case. Wire was reinserted and the scope and access sheath were removed. A stent was placed over the wire the stent selected was 6 [place] by 26 cm, the tether was secured to a 20 [place] Jose catheter prior to insertion of the stent. Stent was deployed using fluoroscopy, there was a good curl in the left kidney as well as in the bladder and the Jose catheter was inserted into the bladder inflated with 20 cc of sterile water. Patient was awakened from anesthesia and transferred to the recovery room in stable condition Plan: Return to the floor and resume preoperative orders. Would recommend additional dose of meropenem while she is in the hospital due to history of severe sepsis with bacteremia. She did also receive 1 dose of intraoperative vancomycin for history of staph bacteremia. When the patient's catheter is exchanged in the next 3 to 4 weeks, the stent will be removed at that time as well. Due to her severe immobility and need for specialized ambulance with extra transport team, we will not plan on following up with Salazar in the office, if she has a problem she can call the office and we can arrange for a virtual visit however at this time she is deemed stone free [facility] 08-03-2022 Note Formatting of this n ote might be different from the original. UROLOGY OPERATIVE REPORT PATIENT NAME: Salazar Coyle DATE OF : 1950 TODAY'S DATE: 08/03/2022 PreOp Dx: Left ureteral calculus, left stent PostOp Dx: Same Operation: Cystoscopy Left ureteroscopy with laser lithotripsy Left ureteral stent exchange Surgeon: Annette Bejarano DO Steno Pool Supervisor: Nate Churchill DO, PGY 5 Anesthesia: General endotracheal EBL: Minimal Wound classification: Clean contaminated Implants: 6 [place] by 26 cm JJ left ureteral stent tied to a 20 [place] urethral Jose catheter Drains/Packing: None Jose: 20 [place] Jose catheter with 20 cc in balloon Specimens: None sent Complications: none apparent Condition: Stable to PACU Indication for Procedure: Salazar Coyle is a 71 y.o. female who presents with left ureteral calculus. She had previously undergone stent placement during an period of severe sepsis when she was admitted at [facility]. She presents today for definitive stone management in the form of laser lithotripsy and stent exchange.. After having a discussion on treatment options, risks and benefits, the patient wishes to proceed forward with surgical intervention Description of Procedure: Patient was brought to the operating room and placed on the operative table. Induction per anesthesia. Meropenem was administered preoperative antibiotic, positioned in a modified dorsolithotomy fashion. Patient has severe lower extremity immobility, contractures secondary to arthritis and a nonambulatory status for the past 5 years. She also has severe skin thickening and flaking to bilateral lower extremities with pressure sores to her gluteus. This was present on admission and was present on her last admission as well. We were able to place SCDs and legs were padded and secured to the stirrups to the best of our ability in order to prevent any pressure injuries.. Patient was then prepped and draped in the normal sterile fashion, a timeout was performed and all parties were in agreement. X-ray was performed, this reveals a calcification overlying the left kidney, there is an indwelling stent. Using a rigid scope we atraumatically into the bladder to perform a cystourethroscopy. Urethra is capacious and there is somewhat eroded noted. There is noted to be a somewhat small capacity bladder likely secondary to long-term indwelling catheter, there is noted to be catheter cystitis. Stent is seen with curl in the bladder. We will hold of the role extracorporeally and attempted to pass a wire through the stent but it was calcified. We reentered the bladder and using an open-ended catheter and a sensor wire we are able to cannulate the left ureteral orifice and passed a wire up to the level of the knee. Stent was then removed. A 12/14 [place] short ureteral access sheath was passed over the wire, we then used a flexible ureteroscope to perform pyeloscopy. The large proximal stone was identified along with a couple other renal stones seen on CT scan. 200 mg Jenifer holmium laser fiber was used to perform stone dusting. All fragments were smaller than proximally 1 mm at the termination of the case. Wire was reinserted and the scope and access sheath were removed. A stent was placed over the wire the stent selected was 6 [place] by 26 cm, the tether was secured to a 20 [place] Jose catheter prior to insertion of the stent. Stent was deployed using fluoroscopy, there was a good curl in the left kidney as well as in the bladder and the Jose catheter was inserted into the bladder inflated with 20 cc of sterile water. Patient was awakened from anesthesia and transferred to the recovery room in stable condition Plan: Return to the floor and resume preoperative orders. Would recommend additional dose of meropenem while she is in the hospital due to history of severe sepsis with bacteremia. She did also receive 1 dose of intraoperative vancomycin for history of staph bacteremia. When the patient's catheter is exchanged in the next 3 to 4 weeks, the stent will be removed at that time as well. Due to her severe immobility and need for specialized ambulance with extra transport team, we will not plan on following up with Salazar in the office, if she has a problem she can call the office and we can arrange for a virtual visit however at this time she is deemed stone free [facility] 08-03-2022 Consult note Associated Order (s): IP WOUND CARE NURSE CONSULT TO EVAL Images from the original note were not included. [facility] Wound Care CONSULT Note Salazar Coyle AGE: 71 y.o. GENDER: female : 1950 Subjective: HISTORY of PRESENT ILLNESS HPI Salazar Coyle is a 71 y.o. female who presents for a wound consult. History of Wound Context: 71 y.o. female with PMH Vascular/Alzheimer Dementia, T2DM, Chronic Jose 2/2 neurogenic bladder, Anxiety, Chronic Pain, Morbid Obesity that presented to [facility] on 08/02/2022 from outside facility ([facility]) She was admitted on 06/09 with severe sepsis due to left UPJ calculus s/p stent and abx. She was discharged to [facility] for abx and rehab. She was scheduled to see urology for ureteroscopy, but missed multiple appointments. She was transferred to [facility] ED due to hematuria. Wound Care consulted for bilateral LE. Patient resting in bed at time of visit. PAST MEDICAL HISTORY Past Medical History: Diagnosis Date A-fib (CMS/HCC) (HCC) Anemia Diabetes (HCC) Lymphedema Obesity PAST SURGICAL HISTORY History reviewed. No pertinent surgical history. FAMILY HISTORY No family history on file. SOCIAL HISTORY Social History Tobacco Use Smoking status: Never Smokeless tobacco: Never Vaping Use Vaping Use: Never used Substance Use Topics Alcohol use: Never Drug use: Never ALLERGIES Allergies Allergen Reactions Ertapenem MEDICATIONS No current facility-administered medications on file prior to encounter. Current Outpatient Medications on File Prior to Encounter Medication Sig Dispense Refill sertraline (Zoloft) 50 MG tablet Take 50 mg by mouth daily. apixaban (Eliquis) 5 MG tablet Take 1 tablet (5 mg) by mouth 2 times daily for 8 doses. 8 tablet 0 ascorbic acid (Vitamin C) 250 MG tablet Take 250 mg by mouth daily. atorvastatin (Lipitor) 20 MG tablet Take 20 mg by mouth daily. baclofen (Lioresal) 5 MG tablet Take 1 tablet by mouth daily. Calcium Carbonate-Vitamin D (Oyster Shell Calcium/D) 500-5 MG-MCG tablet Take 1 tablet by mouth daily. donepezil (Aricept) 10 MG tablet Take 10 mg by mouth Nightly. donepezil (Aricept) 5 MG tablet doxycycline (Vibra-Tabs) 100 MG tablet ferrous sulfate 325 (65 Fe) MG EC tablet Take 1 tablet (325 mg) by mouth daily (with breakfast). Do not crush, chew, or split. 30 tablet 11 furosemide (Lasix) 40 MG tablet Take 40 mg by mouth in the morning and 40 mg in the evening. insulin glargine (Lantus) 100 UNIT/ML injection Inject 10 Units under the skin Nightly. 10 mL 12 Insulin Lispro (Humalog) 100 UNIT/ML solution injection Inject 0-18 Units under the skin 4 times daily (before meals and nightly). 10 mL 12 lisinopril 10 MG tablet Take 10 mg by mouth daily. loperamide (Imodium) 2 MG capsule nystatin (Mycostatin) 681383 UNIT/GM powder oxyCODONE (Roxicodone) 5 MG immediate release tablet senna-docusate (Helena-Colace) 8.6-50 MG tablet Take 100 tablets by mouth Every 24 hours. REVIEW OF SYSTEMS Pertinent items are noted in HPI. Objective: BP (!) 145/52 Pulse 56 Temp 37 C (98.6 F) (Temporal) Resp 18 Ht 1.676 m (5' 5.98") Wt (!) 156 kg (343 lb) SpO2 100% BMI 55.39 kg/m PHYSICAL EXAM General appearance: in no apparent distress, well developed and well nourished, non-toxic, in no respiratory distress and acyanotic, alert, and oriented times 3 Skin: warm and dry Pulmonary: Normal effort, no respiratory distress, no cyanosis Left lyons: Scattered scabbing noted. Dry flaking skin present. No drainage present. Scattered areas of erythema noted. Right lyons: Scattered scabbing noted. Dry flaking skin present. No drainage present. Scattered areas of erythema noted. LABS CBC: Lab Results Component Value Date WBC 8.8 08/03/2022 HGB 10.8 (L) 08/03/2022 HCT 34.1 (L) 08/03/2022 MCV 89.8 08/03/2022 PLT 259 08/03/2022 BMP: Lab Results Component Value Date NA 136 08/03/2022 K 4.5 08/03/2022 CL 101 08/03/2022 CO2 30 08/03/2022 BUN 30 (H) 08/03/2022 CREATININE 0.77 08/03/2022 PT/INR: Lab Results Component Value Date PROTIME 10.5 08/03/2022 INR 1.0 08/03/2022 Prealbumin: No results found for: PREALBUMIN Albumin:No components found for: LABALBU Sed Rate:No results found for: SEDRATE Micro: No components found for: BC Assessment/Plan: Left lyons: Venous stasis dermatitis - Apply Lac-Hydrin. 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 Apply daily and PRN. Right lyons: Venous stasis dermatitis - Apply Lac-Hydrin. Leave LINDSEY. Apply daily and PRN. Nutritional support Wound Care to follow Recommend to follow up at [facility] wound care center after hospital discharge. Any questions or concerns please secure chat "ACH wound/ostomy". Thank you for the consult! I personally obtained the arias and critical portions of the history and physical exam. I reviewed the labs, imaging studies, and electronic medical record. I reviewed the chart documentation and discussed the patient with treatment team members. I have edited the note to reflect my clinical findings and my assessment and plan. Please note, the time of this note does not reflect the time I saw this patient today, but the time of this documentaton. Portions of this note including HPI, ROS, impression/plan, and examination may have been copied forward from admission to today as to provide important historical information essential in contributing to medical decision making. Documentation has been reviewed and edited as necessary to support clinical decision making for today's visit and to reflect my own independent evaluation of this patient. Decision making for today's visit and to reflect my own independent evaluation of this patient. [facility] 08-03-2022 Consult note Associated Order (s): IP CONSULT TO UROLOGY Urology Inpatient Consultation 08/03/2022 HISTORY OF PRESENT ILLNESS: The patient is a 71 y.o.female known to DR. Bejarano for history of septic left ureteral calculus s/p L ureteral stent placement 06/10. She is scheduled for LULL today. She is admitted with hematuria. Hospital course revealed: WBC: 8.8 Cr: 0.77 She is on meropenem She reports no pain or fever. Understands plan for OR. Jose with yellow urine. PAST MEDICAL HISTORY: Past Medical History: Diagnosis Date A-fib (CMS/HCC) (HCC) Anemia Diabetes (HCC) Lymphedema Obesity PAST SURGICAL HISTORY: History reviewed. No pertinent surgical history. ALLERGIES: Allergies Allergen Reactions Ertapenem CURRENT MEDICATIONS: No current facility-administered medications on file prior to encounter. Current Outpatient Medications on File Prior to Encounter Medication Sig Dispense Refill sertraline (Zoloft) 50 MG tablet Take 50 mg by mouth daily. apixaban (Eliquis) 5 MG tablet Take 1 tablet (5 mg) by mouth 2 times daily for 8 doses. 8 tablet 0 ascorbic acid (Vitamin C) 250 MG tablet Take 250 mg by mouth daily. atorvastatin (Lipitor) 20 MG tablet Take 20 mg by mouth daily. baclofen (Lioresal) 5 MG tablet Take 1 tablet by mouth daily. Calcium Carbonate-Vitamin D (Oyster Shell Calcium/D) 500-5 MG-MCG tablet Take 1 tablet by mouth daily. donepezil (Aricept) 10 MG tablet Take 10 mg by mouth Nightly. donepezil (Aricept) 5 MG tablet doxycycline (Vibra-Tabs) 100 MG tablet ferrous sulfate 325 (65 Fe) MG EC tablet Take 1 tablet (325 mg) by mouth daily (with breakfast). Do not crush, chew, or split. 30 tablet 11 furosemide (Lasix) 40 MG tablet Take 40 mg by mouth in the morning and 40 mg in the evening. insulin glargine (Lantus) 100 UNIT/ML injection Inject 10 Units under the skin Nightly. 10 mL 12 Insulin Lispro (Humalog) 100 UNIT/ML solution injection Inject 0-18 Units under the skin 4 times daily (before meals and nightly). 10 mL 12 lisinopril 10 MG tablet Take 10 mg by mouth daily. loperamide (Imodium) 2 MG capsule nystatin (Mycostatin) 042840 UNIT/GM powder oxyCODONE (Roxicodone) 5 MG immediate release tablet senna-docusate (Helena-Colace) 8.6-50 MG tablet Take 100 tablets by mouth Every 24 hours. FAMILY HISTORY: No family history on file. Social History: Social History Socioeconomic History Marital status: Spouse name: Not on file Number of children: Not on file Years of education: Not on file Highest education level: Not on file Occupational History Not on file Tobacco Use Smoking status: Never Smokeless tobacco: Never Vaping Use Vaping Use: Never used Substance and Sexual Activity Alcohol use: Never Drug use: Never Sexual activity: Not Currently Other Topics Concern Not on file Social History Narrative Not on file Social Determinants of Health Financial Resource Strain: Not on file Food Insecurity: Not on file Transportation Needs: Not on file Physical Activity: Not on file Stress: Not on file Social Connections: Not on file Intimate Partner Violence: Not on file Housing Stability: Not on file ROS: Constitutional: negative for chills and fevers Respiratory: negative for hemoptysis and shortness of breath Cardiovascular: negative for dyspnea and syncope Gastrointestinal: negative for jaundice, nausea and vomiting Genitourinary: pos for hematuria Hematologic/lymphatic: negative for bleeding and lymphadenopathy Integumentary: no new bruises or lesions Musculoskeletal:negative for muscle weakness or pain Neurological: negative for coordination problems and seizures All other systems negative PHYSICAL EXAM: VITALS: BP 134/57 (BP Location: Left arm, Patient Position: Lying) Pulse 66 Temp 36.1 C (96.9 F) (Temporal) Resp 18 Ht 5' 6" (1.676 m) Wt (!) 343 lb (156 kg) SpO2 99% BMI 55.36 kg/m General: Alert, in no acute distress Head: Normocephalic, atraumatic Neck: supple, trachea is midline, no obvious masses Respiratory: no respiratory distress, normal effort, no audible wheezes Cardiovascular: regular pulse and no cyanosis Musculoskeletal: normal tone in all four extremities Skin: warm and dry Psych: normal mood and affect Abdomen: soft, non distended, non tender : no cva ttp, jose in place draining yellow urine DATA: LABS: BMP: Lab Results Component Value Date GLUCOSE 234 (H) 08/03/2022 CALCIUM 8.9 08/03/2022 NA 136 08/03/2022 K 4.5 08/03/2022 CO2 30 08/03/2022 CL 101 08/03/2022 BUN 30 (H) 08/03/2022 CREATININE 0.77 08/03/2022 CBC: Lab Results Component Value Date WBC 8.8 08/03/2022 HGB 10.8 (L) 08/03/2022 HCT 34.1 (L) 08/03/2022 MCV 89.8 08/03/2022 PLT 259 08/03/2022 Urinalysis: N/A Urine Culture: Hx MDR e coli RADIOLOGY: No imaging this admission IMPRESSION: 71 y.o. female with left stent in place and history of MDR UTI PLAN: - NPO for OR - Continue meropenem - OR today as planned - Continue care per primary Thank you for allowing me to participate in the care of your patient. Veronika Bains MD Urology PGY-3 08/03/2022 6:29 AM Page Hand Cutter Resident with questions Associated attestation - Annette Bejarano DO - 08/06/2022 5:31 PM EDT Images from the original note were not included. Attending Physician's Attestation I have personally seen and evaluated the patient and agree with the resident's assessment and plan. OR today for cysto left ureteroscopy with laser lithotripsy and stent change Please do not hesitate to reach out to the urology team with additional questions or concerns Annette Bejarano DO [facility] [place] [facility] [employer] Work Phone: 08-02-2022 Plan of care note Problem: Neurosensory - Adult Goal: Achieves stable or improved neurological status Outcome: Progressing Goal: Achieves maximal functionality and self care Outcome: Progressing Problem: Skin/Tissue Integrity - Adult Goal: Skin integrity remains intact Outcome: Progressing Goal: Incisions, wounds, or drain sites healing without S/S of infection Outcome: Progressing Goal: Oral mucous membranes remain intact Outcome: Progressing Problem: Musculoskeletal - Adult Goal: Return mobility to safest level of function Outcome: Progressing Goal: Return ADL status to a safe level of function Outcome: Progressing Problem: Genitourinary - Adult Goal: Absence of urinary retention Outcome: Progressing Goal: Urinary catheter remains patent Outcome: Progressing Problem: Infection - Adult Goal: Absence of infection at discharge Outcome: Progressing Goal: Absence of fever/infection during anticipated neutropenic period Outcome: Progressing Problem: Hematologic - Adult Goal: Maintains hematologic stability Outcome: Progressing [facility] 08-02-2022 Emergency department Note Message sent to pharmacy, still have not received Meropenem, will start once received. Geovani Dougherty RN 08/02/22 184 [facility] 08-02-2022 Emergency department Note Message sent to pharmacy, still have not received Meropenem, will start once received. Geovani Dougherty RN 08/02/22 338 Transport requested for patient at this time. Geovani Dougherty RN 08/02/22 880 Meal tray ordered for patient at this time. Geovani Dougherty RN 08/02/22 1819 Patient has a 20Fr-30mL balloon catheter, cart ordered at this time. Geovani Dougherty RN 08/02/22 1727 Report from pet trainer Chance, patient is from [facility], here for a jose catheter change before unknown surgery tomorrow. Patient states she is having stents placed and kidney stone removed. Noted soft boots to bilateral feet. Patient is alert and oriented x3, speaking in full sentences and answering questions appropriately. Respirations easy and non-labored, no distress noted. Skin is warm, dry and intact. She moves all extremities x2. Call light within reach. Will continue to monitor. Geovani Dougherty RN 08/02/22 1729 EMERGENCY DEPARTMENT ENCOUNTER Pt Name: Salazar Coyle Birthdate 1950 Date of evaluation: 08/02/2022 ED Provider: Milly Newby MD CHIEF COMPLAINT Chief Complaint Patient presents with jose replacement HISTORY OF PRESENT ILLNESS (Location/Symptom, Timing/Onset, Context/Setting, Quality, Duration, Modifying Factors, Severity) Note limiting factors. I wore appropriate PPE for the entirety of this encounter. HPI Salazar Coyle is a 71 y.o. female who presents to the emergency department for hematuria. States that this has been an ongoing problem for her. Was recently admitted for urinary tract infection with obstructing left ureteral calculus and had stent placed at that time. Was supposed to have stent removed in the interim but has missed 2 appointments due to difficulty with transportation from the facility at which she resides. Was instructed by urology to come the night before to ensure she will be here for procedure which is scheduled for tomorrow. States that she continues to have hematuria but denies dysuria, suprapubic pain. Has indwelling Jose at baseline. Denies fever, chills. Nursing Notes were reviewed. Limitations to history: None Outside historians: None REVIEW OF SYSTEMS Review of Systems Pertinent positives and negatives as per HPI. PAST MEDICAL HISTORY Past Medical History: Diagnosis Date A-fib (CMS/HCC) (HCC) Anemia Diabetes (HCC) Lymphedema Obesity SURGICAL HISTORY History reviewed. No pertinent surgical history. CURRENT MEDICATIONS Current Discharge Medication List CONTINUE these medications which have NOT CHANGED Details sertraline (Zoloft) 50 MG tablet Take 50 mg by mouth daily. apixaban (Eliquis) 5 MG tablet Take 1 tablet (5 mg) by mouth 2 times daily for 8 doses. Qty: 8 tablet, Refills: 0 ascorbic acid (Vitamin C) 250 MG tablet Take 250 mg by mouth daily. atorvastatin (Lipitor) 20 MG tablet Take 20 mg by mouth daily. baclofen (Lioresal) 5 MG tablet Take 1 tablet by mouth daily. Calcium Carbonate-Vitamin D (Oyster Shell Calcium/D) 500-5 MG-MCG tablet Take 1 tablet by mouth daily. !! donepezil (Aricept) 10 MG tablet Take 10 mg by mouth Nightly. !! donepezil (Aricept) 5 MG tablet doxycycline (Vibra-Tabs) 100 MG tablet ferrous sulfate 325 (65 Fe) MG EC tablet Take 1 tablet (325 mg) by mouth daily (with breakfast). Do not crush, chew, or split. Qty: 30 tablet, Refills: 11 furosemide (Lasix) 40 MG tablet Take 40 mg by mouth in the morning and 40 mg in the evening. insulin glargine (Lantus) 100 UNIT/ML injection Inject 10 Units under the skin Nightly. Qty: 10 mL, Refills: 12 Insulin Lispro (Humalog) 100 UNIT/ML solution injection Inject 0-18 Units under the skin 4 times daily (before meals and nightly). Qty: 10 mL, Refills: 12 lisinopril 10 MG tablet Take 10 mg by mouth daily. loperamide (Imodium) 2 MG capsule nystatin (Mycostatin) 434167 UNIT/GM powder oxyCODONE (Roxicodone) 5 MG immediate release tablet senna-docusate (Helena-Colace) 8.6-50 MG tablet Take 100 tablets by mouth Every 24 hours. !! - Potential duplicate medications found. Please discuss with provider. ALLERGIES Ertapenem FAMILY HISTORY No family history on file. SOCIAL HISTORY Social History Socioeconomic History Marital status: Tobacco Use Smoking status: Never Smokeless tobacco: Never Vaping Use Vaping Use: Never used Substance and Sexual Activity Alcohol use: Never Drug use: Never Sexual activity: Not Currently SCREENINGS PHYSICAL EXAM ED Triage Vitals [08/02/22 1528] Temp Heart Rate Resp BP 36.2 C (97.1 F) 68 18 (!) 147/38 SpO2 Temp src Heart Rate Source Patient Position 97 % -- -- -- BP Location FiO2 (%) -- -- Physical Exam Vitals and nursing note reviewed. Constitutional: General: She is not in acute distress. Appearance: She is well-developed. She is obese. HENT: Head: Normocephalic and atraumatic. Eyes: Conjunctiva/sclera: Conjunctivae normal. Cardiovascular: Rate and Rhythm: Normal rate and regular rhythm. Heart sounds: No murmur heard. Pulmonary: Effort: Pulmonary effort is normal. No respiratory distress. Breath sounds: Normal breath sounds. No wheezing, rhonchi or rales. Abdominal: Palpations: Abdomen is soft. Tenderness: There is no abdominal tenderness. There is no guarding or rebound. Musculoskeletal: Cervical back: Neck supple. Right lower leg: Edema present. Left lower leg: Edema present. Comments: 2+ nonpitting edema bilaterally with overlying chronic skin changes. Skin: General: Skin is warm and dry. Capillary Refill: Capillary refill takes less than 2 seconds. Findings: Rash (scabbed lesions present on b/l shins) present. Neurological: Mental Status: She is alert. DIAGNOSTIC RESULTS RADIOLOGY (Per Emergency Physician): Interpretation per the Radiologist below, if available at the time of this note: No orders to display LABS: Labs Reviewed CBC WITH AUTO DIFFERENTIAL - Abnormal Result Value Auto WBC 8.0 RBC 3.80 Hemoglobin 10.8 (*) Hematocrit 34.1 (*) MCV 89.7 MCH 28.4 MCHC 31.6 (*) RDW 20.8 (*) Platelets 241 MPV 9.0 nRBC 0.0 Neutrophils Relative 63.8 Lymphocytes Relative 23.7 Monocytes Relative 6.8 Eosinophils Relative 4.9 Basophils Relative 0.8 Neutrophils Absolute 5.1 Lymphocytes Absolute 1.9 Monocytes Absolute 0.5 Eosinophils Absolute 0.4 Basophils Absolute 0.1 BASIC METABOLIC PANEL - Abnormal SODIUM 136 POTASSIUM 4.7 CHLORIDE 103 CARBON DIOXIDE 30 UREA NITROGEN 29 (*) CREATININE 0.81 GLUCOSE 239 (*) CALCIUM 8.7 ANION GAP 3 eGFR 76.8 COMPLETE URINALYSIS WITH REFLEX TO CULTURE Narrative: The following orders were created for panel order Urinalysis complete with reflex to Culture. Procedure Abnormality Status --------- ------ Complete Urinalysis[[id number]] Please view results for these tests on the individual orders. COMPLETE URINALYSIS All other labs were within normal range or not returned as of this dictation. EMERGENCY DEPARTMENT COURSE and DIFFERENTIAL DIAGNOSIS/MDM: Vitals: Vitals: 08/02/22 1528 08/02/22 1816 08/02/22 1840 BP: (!) 147/38 (!) 144/50 113/51 Pulse: 68 72 78 Resp: 18 16 16 Temp: 36.2 C (97.1 F) SpO2: 97% 99% 98% Weight: (!) 156 kg (343 lb) Height: 1.676 m (5' 6") The patient presented with a chief complaint of hematuria. The differential diagnosis associated with this patient's presentation includes nephrolithiasis, inflammation secondary to ureteral stent. Our workup consisted of ordering/reviewing CBC, BMP. UA ordered for when patient produces urine. Workup consistent with hematuria. Patient's hemoglobin 10.8 which is above her baseline of 8-9. BMP shows creatinine 0.81 and GFR 76 which is consistent with patient's baseline. UA pending. Discussed with urology who will give dose of meropenem and recommends n.p.o. at midnight for stent removal tomorrow. Requesting a medical admission. Discussed with hospitalist team who accepted patient for admission. Patient is agreeable with the plan. Admitted in stable condition. Diagnoses as of 08/02/222003 Inflammatory reaction due to indwelling ureteral stent, initial encounter ([facility]) External records reviewed: Inpatient notes reviewed prior admission with left obstructing renal calculus and urosepsis Diagnostics interpreted by me and the attending: none Discussions with other clinicians: Admitting team hospitalist and [facility] urology Chronic conditions impacting care: none Social determinants of health affecting care: Transportation difficulty ED Medications managed: Medications meropenem (Merrem) 2,000 mg in sodium chloride 0.9 % 100 mL IVPB (has no administration in time range) Prescription drugs considered: PROCEDURES: Unless otherwise noted below, none Procedures FINAL IMPRESSION 1. Inflammatory reaction due to indwelling ureteral stent, initial encounter ([facility]) DISPOSITION Admit 08/02/2022 05:51:37 PM PATIENT REFERRED TO: No follow-up provider specified. DISCHARGE MEDICATIONS: Current Discharge Medication List (Comment: Please note this report has been produced using speech recognition software and may contain errors related to that system including errors in grammar, punctuation, and spelling, as well as words and phrases that may be inappropriate. If there are any questions or concerns please feel free to contact the dictating provider for clarification.) Milly Newby MD (electronically signed) Emergency Medicine Provider Milly Newby MD Resident 08/02/222003 Emergency Department Encounter [facility] EMERGENCY DEPT Patient: Salazar Coyle : 1950 Date of Evaluation: 08/02/2022 ED Supervising Physician: Carlos Ayala DO I independently examined and evaluated Salazar Coyle. I wore a KN95 mask and gloves for the entirety of this encounter. In brief, Salazar Coyle is a 71 y.o. female that presents to the emergency department hematuria in the setting of known hematuria related to ureteral stent being managed by urology. To the emergency room due to difficulty coordinating outpatient cystoscopy. Patient is pleasantly confused, ANO x2. She has no acute complaints other than asking for a skin lesion to be scraped off during surgery tomorrow. She is afebrile and well-appearing. Focused exam: General appearance: Well-appearing, no acute distress. Psych: Awake alert and oriented 2, somewhat confused Skin: Warm and dry. Neck: Supple. Cardiovascular: Regular rate and rhythm. Lungs: Clear to auscultation bilaterally, no accessory muscle use, tachypnea, or retractions. Abdomen: Soft, nontender, and nondistended, no rebound, rigidity, or guarding, positive bowel sounds 4 quadrants. Obese abdomen Extremities: Warm and well perfused. NROM and SILT throughout upper and lower extermities. Brief ED course/MDM: Patient is hemodynamically stable and well-appearing. Plan for admission to facilitate outpatient procedure. EMERGENCY DEPARTMENT COURSE and DIFFERENTIAL DIAGNOSIS/MDM: Vitals: Vitals: 08/02/22 1528 08/02/22 1816 08/02/22 1840 BP: (!) 147/38 (!) 144/50 113/51 Pulse: 68 72 78 Resp: 18 16 16 Temp: 36.2 C (97.1 F) SpO2: 97% 99% 98% Weight: (!) 156 kg (343 lb) Height: 1.676 m (5' 6") All diagnostic, treatment, and disposition decisions were made by myself in conjunction with the LEONIDAS/Resident. I also supervised arias portions of any procedures performed by the LEONIDAS/Resident. For all further details of the patient's emergency department visit, please see their documentation. This will serve as my supervisory note and shared attestation. I did perform a substantiative portion of the visit including all aspects of the medical decision making. (Please note that portions of this note may have been completed with a voice recognition program. Efforts were made to edit the dictations but occasionally words are mis-transcribed.) Carlos Ayala DO [employer] Carlos Ayala DO 08/02/22 1848 Carlos Ayala DO 08/02/22 2247 Bed: 09 Expected date: 08/02/22 Expected time: Means of arrival: Comments: Offload Caitlin Johnson RN 08/02/22 1549 documented in this encounter [facility] 08-02-2022 Emergency department Note Transport requested for patient at this time. Geovani Dougherty RN 08/02/22 1820 [facility] 08-02-2022 Emergency department Note Meal tray ordered for patient at this time. Geovani Dougherty RN 08/02/221818 [facility] 08-02-2022 History and physical note Images from the original note were not included. Internal Medicine: Med Team Initial History and Physical Salazar Coyle : 1950(71 y.o.) Date: August 02, 2022 TEAM: Alvaro Attending: Dr. Tariq Subjective: Chief Complaint: Hematuria HPI Salazar Coyle is a 71 y.o. female with PMH Vascular/Alzheimer Dementia, T2DM, Chronic Jose 2/2 neurogenic bladder, Anxiety, Chronic Pain, Morbid Obesity that presented to [facility] on 08/02/2022 from outside facility ([facility]) She was admitted on 06/09 with severe sepsis (ESBL E. Coli bacteremia) due to left UPJ calculus s/p stent and abx. She was discharged to [facility] for abx and rehab. She was scheduled to see urology for ureteroscopy, but missed multiple appointments. She was transferred to [facility] ED due to hematuria. In the ED the pt VSS Temp 36.2, HR 68, RR 18, BP 147/38, SpO2 97% on RA. Labs showed a hgb at 10.8 (improved from 06/24). She was resting comfortably in bed with no concerns. Urology is planning on taking her to the OR tomorrow. 71 year old woman with history of dementia (Vascular/Alzhemiers), DM2, Chronic Jose, Morbid Obesity who was admitted for Cystoscopy with laser lithotripsy and stent exchange. She was started on Meropenem with ID consult per Urology's request. She completed IV meropenem on 06/24 but subsequently missed several appointments to have the line removed, as well as for ureteroscopy. Was unable to see this morning because she was in Surgery. In PACU, she was awake but under the effects of anesthesia, able to state her name and birthday, recogonized admitting resident. Unable to obtain much history from her. Went and updated patient's family members in her room that she remains in PACU being monitored. Discussed with Urology resident - patient will need her line removed this hospital stay, post-op has a stent which is tied to her Jose, will need removal by Urology in ~1 month. Review of Systems Constitutional: Negative for chills, fatigue and fever. Respiratory: Negative for cough, shortness of breath and wheezing. Cardiovascular: Negative for chest pain, palpitations and leg swelling. Gastrointestinal: Negative for abdominal pain, constipation, diarrhea, nausea and vomiting. Genitourinary: Positive for hematuria. Musculoskeletal: Negative for arthralgias, myalgias and neck pain. Skin: Positive for wound (B/L LE). Neurological: Negative for dizziness, weakness, light-headedness and headaches. Psychiatric/Behavioral: Negative for agitation. The patient is not nervous/anxious. Seen in PACU 08/03, unable to obtain ROS due to sedated Past Medical History: Diagnosis Date A-fib (CMS/HCC) (HCC) Anemia Diabetes (HCC) Lymphedema Obesity History reviewed. No pertinent surgical history. No family history on file. Social History Tobacco Use Smoking Status Never Smokeless Tobacco Never Social History Substance and Sexual Activity Alcohol Use Never Social History Substance and Sexual Activity Drug Use Never Allergies Allergen Reactions Ertapenem Prior to Admission medications Medication Sig Start Date End Date Taking? Authorizing Provider sertraline (Zoloft) 50 MG tablet Take 50 mg by mouth daily. 08/18/21 Yes Historical Provider, apixaban (Eliquis) 5 MG tablet Take 1 tablet (5 mg) by mouth 2 times daily for 8 doses. 06/16/22 06/20/22 Elise Park MD ascorbic acid (Vitamin C) 250 MG tablet Take 250 mg by mouth daily. Historical Provider, atorvastatin (Lipitor) 20 MG tablet Take 20 mg by mouth daily. Historical Provider, baclofen (Lioresal) 5 MG tablet Take 1 tablet by mouth 2 times daily. 04/14/21 Historical Provider, Calcium Carbonate-Vitamin D (Oyster Shell Calcium/D) 500-5 MG-MCG tablet Take 1 tablet by mouth daily. Historical Provider, donepezil (Aricept) 10 MG tablet Take 10 mg by mouth Nightly. Historical Provider, donepezil (Aricept) 5 MG tablet 04/15/22 Historical Provider, doxycycline (Vibra-Tabs) 100 MG tablet 03/23/22 Historical Provider, ferrous sulfate 325 (65 Fe) MG EC tablet Take 1 tablet (325 mg) by mouth daily (with breakfast). Do not crush, chew, or split. 06/16/22 06/16/23 Elise Park MD furosemide (Lasix) 40 MG tablet Take 40 mg by mouth in the morning and 40 mg in the evening. 07/11/22 Historical Provider, insulin glargine (Lantus) 100 UNIT/ML injection Inject 10 Units under the skin Nightly. 06/16/22 06/16/23 Elise Park MD Insulin Lispro (Humalog) 100 UNIT/ML solution injection Inject 0-18 Units under the skin 4 times daily (before meals and nightly). 06/16/22 06/16/23 Elise Park MD lisinopril 10 MG tablet Take 10 mg by mouth daily. Historical Provider, loperamide (Imodium) 2 MG capsule 07/16/21 Historical Provider, nystatin (Mycostatin) [id number] UNIT/GM powder 03/22/22 Historical Provider, oxyCODONE (Roxicodone) 5 MG immediate release tablet 04/17/22 Historical Provider, senna-docusate (Helena-Colace) 8.6-50 MG tablet Take 100 tablets by mouth Every 24 hours. 04/06/21 Historical Provider, Objective: Vitals: 08/02/22 1528 BP: (!) 147/38 Pulse: 68 Resp: 18 Temp: 36.2 C (97.1 F) SpO2: 97% Weight: (!) 343 lb (156 kg) Height: 5' 6" (1.676 m) Physical Exam Vitals reviewed. Constitutional: General: She is not in acute distress. Appearance: She is obese. HENT: Head: Normocephalic and atraumatic. Right Ear: External ear normal. Left Ear: External ear normal. Nose: Nose normal. Mouth/Throat: Mouth: Mucous membranes are moist. Pharynx: Oropharynx is clear. Eyes: Extraocular Movements: Extraocular movements intact. Pupils: Pupils are equal, round, and reactive to light. Cardiovascular: Rate and Rhythm: Normal rate and regular rhythm. Pulses: Normal pulses. Heart sounds: Normal heart sounds. Pulmonary: Effort: Pulmonary effort is normal. Breath sounds: Normal breath sounds. Abdominal: General: Abdomen is flat. Bowel sounds are normal. There is no distension. Palpations: Abdomen is soft. Tenderness: There is no abdominal tenderness. Musculoskeletal: Right lower leg: Edema present. Left lower leg: Edema present. Skin: General: Skin is warm and dry. Capillary Refill: Capillary refill takes less than 2 seconds. Findings: Lesion (B/L LE, see images below) present. Neurological: General: No focal deficit present. Mental Status: She is alert and oriented to person, place, and time. Mental status is at baseline. Psychiatric: Mood and Affect: Mood normal. In PACU, awake, appears dazed. Able to state name and . Heart RRR no m/r/g. Lungs CTAB. Abdomen soft, nontender, nondistended. Select Labs within last 24 hours Auto WBC Date Value Ref Range Status 08/02/2022 8.0 3.6 - 10.7 10*3/uL Final Hemoglobin Date Value Ref Range Status 08/02/2022 10.8 (L) 11.7 - 16.0 g/dL Final Hematocrit Date Value Ref Range Status 08/02/2022 34.1 (L) 35.0 - 47.0 % Final Platelets Date Value Ref Range Status 08/02/2022 241 140 - 440 10*3/uL Final MCV Date Value Ref Range Status 08/02/2022 89.7 80.0 - 98.0 fL Final SODIUM Date Value Ref Range Status 08/02/2022 136 135 - 145 mmol/L Final POTASSIUM Date Value Ref Range Status 08/02/2022 4.7 3.5 - 5.1 mmol/L Final CHLORIDE Date Value Ref Range Status 08/02/2022 103 98 - 107 mmol/L Final CARBON DIOXIDE Date Value Ref Range Status 08/02/2022 30 22 - 30 mmol/L Final UREA NITROGEN Date Value Ref Range Status 08/02/2022 29 (H) 7 - 17 mg/dL Final CREATININE Date Value Ref Range Status 08/02/2022 0.81 0.52 - 1.04 mg/dL Final GLUCOSE Date Value Ref Range Status 08/02/2022 239 (H) 70 - 100 mg/dL Final CALCIUM Date Value Ref Range Status 08/02/2022 8.7 8.4 - 10.4 mg/dL Final No results found for: AST, ALT, PROT, BILITOT, ALKPHOS, INR, APTT, LIPASE No results found for: CKTOTAL, CKMB, TROPONINI No results found for: PROCAL, CHOL, TRIG, HDL, TSH, VITD25, HGBA1C, VANCOTROUGH Assessment and Plan: Principal Problem: Inflammatory reaction due to indwelling ureteral stent, initial encounter ([facility]) Chronic Indwelling Jose Catheter 2/2 neurogenic bladder Hematuria Left UPJ Calculus -Plan for pt to have procedure with urology tomorrow -Continue jose at this time -Will monitor hgb, currently stable -Continue to hold eliquis -Meropenem per urology -UA pending -NPO at midnight - Underwent laser lithotripsy today, has stent in place tied to Jose. Will need follow up for this with Urology in ~1 month - Needs tunneled line removed this stay. Chronic LE Wound -No concern for infection at this time -Will have wound care see pt T2DM with Hyperglycemia -Lantus 10 U nightly +LDSSI -POCG ACHS -Hypoglycemia protocol - Glucose 160 this AM - Presently at in hospital goal Vascular/Alzheimer Dementia -Donepezil 10 mg daily -Melatonin 3 mg daily -Delirium protocol HFpEF -currently compensated -Lasix 40 mg bid Chronic pain -Oxycodone 5 mg q6h PRN -Baclofen 5 mg -Senna daily HTN -Lisinopril 10 mg daily HLD -Atorvastatin 20 mg daily Anxiety -Zoloft 50 mg daily Paroxysmal A. Fib -Holding Eliquis due to procedure Morbid Obesity Decreased Mobility -PT/OT - will Sleep apnea noncompliant with CPAP - BiPAP at night if she will agree - Goals of Care: FULL CODE - DVT Prophylaxis: Holding 2/2 procedure - GI Prophylaxis: Not Indicated - Diet: General, NPO at midnight - BMI Classification: Body mass index is 55.36 kg/m . Morbid Obesity (BMI >40) - Disposition: Admit to F. - Given the signs and symptoms associated with her primary diagnosis in the setting of her comorbid conditions, she is expected to require >48 hrs of hospital care (i.e. inpatient level care). Associated attestation - Deacon Tariq MD - 08/03/2022 3:56 PM EDT Attending Supervising Physician's Attestation Statement for Med Team Admission I have discussed the care of Salazar Coyle with the medical student and/or resident. I have personally taken a history, examined the patient, and performed the associated medical decision making activities. I have reviewed & verified the attested documentation. Unless otherwise noted below, this documentation reflects the history, physical exam, and medical decision making that I performed myself. Please see below for my personal highlights or additions to the note in Green. Patient was admitted last night by the admitting residents. Today was the first time I physically examined and spoke with the patient. Patient seen and examined by myself at 1500 on 08/03/2022 Arias Changes to Plan: 71 year old woman with history of recent ESBL E. Coli bacteremia with left UP calculus s/p stent and extended IV meropenem through 06/24, dementia, morbid obesity, PHOEBE, chronic Jose 2/2 neurogenic bladder, chronic pain who was admitted for laser lithotripsy and stent exchange after missing several outpatient appointments. She underwent her surgery this morning, and is currently recovering in PACU. Urology resumed IV Meropenem, reasonable to continue given ESBL E. Coli with sepsis 2 months ago and she did not follow up for lithotripsy and stent replacement in the recommended time frame. Appreciate ID input on whether this needs to be continued now that she had her lithotripsy today and had the stent exchanged. She will need follow up in 1 month with Urology, and will need her tunneled line removed this hospital stay. I spent a total of 40 minutes on the day of the visit obtaining history, discussing with consultants and care team, reviewing imaging and laboratory results, performing a physical exam and providing patient education and counseling. 7AM-5PM: Kay Resident who wrote note today from Service 5PM-7AM: Page "AI2" or "AI3" (In house Manager [employer]) [facility] 08-02-2022 History and physical note Images from the original note were not included. Internal Medicine: Med Team Initial History and Physical Salazar Coyle : 1950(71 y.o.) Date: August 02, 2022 TEAM: Alvaro Attending: Dr. Tariq Subjective: Chief Complaint: Hematuria HPI Salazar Coyle is a 71 y.o. female with PMH Vascular/Alzheimer Dementia, T2DM, Chronic Jose 2/2 neurogenic bladder, Anxiety, Chronic Pain, Morbid Obesity that presented to [facility] on 08/02/2022 from outside facility ([facility]) She was admitted on 06/09 with severe sepsis (ESBL E. Coli bacteremia) due to left UPJ calculus s/p stent and abx. She was discharged to [facility] for abx and rehab. She was scheduled to see urology for ureteroscopy, but missed multiple appointments. She was transferred to [facility] ED due to hematuria. In the ED the pt VSS Temp 36.2, HR 68, RR 18, BP 147/38, SpO2 97% on RA. Labs showed a hgb at 10.8 (improved from 06/24). She was resting comfortably in bed with no concerns. Urology is planning on taking her to the OR tomorrow. 71 year old woman with history of dementia (Vascular/Alzhemiers), DM2, Chronic Jose, Morbid Obesity who was admitted for Cystoscopy with laser lithotripsy and stent exchange. She was started on Meropenem with ID consult per Urology's request. She completed IV meropenem on 06/24 but subsequently missed several appointments to have the line removed, as well as for ureteroscopy. Was unable to see this morning because she was in Surgery. In PACU, she was awake but under the effects of anesthesia, able to state her name and birthday, recogonized admitting resident. Unable to obtain much history from her. Went and updated patient's family members in her room that she remains in PACU being monitored. Discussed with Urology resident - patient will need her line removed this hospital stay, post-op has a stent which is tied to her Jose, will need removal by Urology in ~1 month. Review of Systems Constitutional: Negative for chills, fatigue and fever. Respiratory: Negative for cough, shortness of breath and wheezing. Cardiovascular: Negative for chest pain, palpitations and leg swelling. Gastrointestinal: Negative for abdominal pain, constipation, diarrhea, nausea and vomiting. Genitourinary: Positive for hematuria. Musculoskeletal: Negative for arthralgias, myalgias and neck pain. Skin: Positive for wound (B/L LE). Neurological: Negative for dizziness, weakness, light-headedness and headaches. Psychiatric/Behavioral: Negative for agitation. The patient is not nervous/anxious. Seen in PACU 08/03, unable to obtain ROS due to sedated Past Medical History: Diagnosis Date A-fib (CMS/HCC) (HCC) Anemia Diabetes (HCC) Lymphedema Obesity History reviewed. No pertinent surgical history. No family history on file. Social History Tobacco Use Smoking Status Never Smokeless Tobacco Never Social History Substance and Sexual Activity Alcohol Use Never Social History Substance and Sexual Activity Drug Use Never Allergies Allergen Reactions Ertapenem Prior to Admission medications Medication Sig Start Date End Date Taking? Authorizing Provider sertraline (Zoloft) 50 MG tablet Take 50 mg by mouth daily. 08/18/21 Yes Historical Provider, apixaban (Eliquis) 5 MG tablet Take 1 tablet (5 mg) by mouth 2 times daily for 8 doses. 06/16/22 06/20/22 Elise Park MD ascorbic acid (Vitamin C) 250 MG tablet Take 250 mg by mouth daily. Historical Provider, atorvastatin (Lipitor) 20 MG tablet Take 20 mg by mouth daily. Historical Provider, baclofen (Lioresal) 5 MG tablet Take 1 tablet by mouth 2 times daily. 04/14/21 Historical Provider, Calcium Carbonate-Vitamin D (Oyster Shell Calcium/D) 500-5 MG-MCG tablet Take 1 tablet by mouth daily. Historical Provider, donepezil (Aricept) 10 MG tablet Take 10 mg by mouth Nightly. Historical Provider, donepezil (Aricept) 5 MG tablet 04/15/22 Historical Provider, doxycycline (Vibra-Tabs) 100 MG tablet 03/23/22 Historical Provider, ferrous sulfate 325 (65 Fe) MG EC tablet Take 1 tablet (325 mg) by mouth daily (with breakfast). Do not crush, chew, or split. 06/16/22 06/16/23 Elise Park MD furosemide (Lasix) 40 MG tablet Take 40 mg by mouth in the morning and 40 mg in the evening. 07/11/22 Historical Provider, insulin glargine (Lantus) 100 UNIT/ML injection Inject 10 Units under the skin Nightly. 06/16/22 06/16/23 Elise Park MD Insulin Lispro (Humalog) 100 UNIT/ML solution injection Inject 0-18 Units under the skin 4 times daily (before meals and nightly). 06/16/22 06/16/23 Elise Park MD lisinopril 10 MG tablet Take 10 mg by mouth daily. Historical Provider, loperamide (Imodium) 2 MG capsule 07/16/21 Historical Provider, nystatin (Mycostatin) 015024 UNIT/GM powder 03/22/22 Historical Provider, oxyCODONE (Roxicodone) 5 MG immediate release tablet 04/17/22 Historical Provider, senna-docusate (Helena-Colace) 8.6-50 MG tablet Take 100 tablets by mouth Every 24 hours. 04/06/21 Historical Provider, Objective: Vitals: 08/02/22 1528 BP: (!) 147/38 Pulse: 68 Resp: 18 Temp: 36.2 C (97.1 F) SpO2: 97% Weight: (!) 343 lb (156 kg) Height: 5' 6" (1.676 m) Physical Exam Vitals reviewed. Constitutional: General: She is not in acute distress. Appearance: She is obese. HENT: Head: Normocephalic and atraumatic. Right Ear: External ear normal. Left Ear: External ear normal. Nose: Nose normal. Mouth/Throat: Mouth: Mucous membranes are moist. Pharynx: Oropharynx is clear. Eyes: Extraocular Movements: Extraocular movements intact. Pupils: Pupils are equal, round, and reactive to light. Cardiovascular: Rate and Rhythm: Normal rate and regular rhythm. Pulses: Normal pulses. Heart sounds: Normal heart sounds. Pulmonary: Effort: Pulmonary effort is normal. Breath sounds: Normal breath sounds. Abdominal: General: Abdomen is flat. Bowel sounds are normal. There is no distension. Palpations: Abdomen is soft. Tenderness: There is no abdominal tenderness. Musculoskeletal: Right lower leg: Edema present. Left lower leg: Edema present. Skin: General: Skin is warm and dry. Capillary Refill: Capillary refill takes less than 2 seconds. Findings: Lesion (B/L LE, see images below) present. Neurological: General: No focal deficit present. Mental Status: She is alert and oriented to person, place, and time. Mental status is at baseline. Psychiatric: Mood and Affect: Mood normal. In PACU, awake, appears dazed. Able to state name and . Heart RRR no m/r/g. Lungs CTAB. Abdomen soft, nontender, nondistended. Select Labs within last 24 hours Auto WBC Date Value Ref Range Status 08/02/2022 8.0 3.6 - 10.7 10*3/uL Final Hemoglobin Date Value Ref Range Status 08/02/2022 10.8 (L) 11.7 - 16.0 g/dL Final Hematocrit Date Value Ref Range Status 08/02/2022 34.1 (L) 35.0 - 47.0 % Final Platelets Date Value Ref Range Status 08/02/2022 241 140 - 440 10*3/uL Final MCV Date Value Ref Range Status 08/02/2022 89.7 80.0 - 98.0 fL Final SODIUM Date Value Ref Range Status 08/02/2022 136 135 - 145 mmol/L Final POTASSIUM Date Value Ref Range Status 08/02/2022 4.7 3.5 - 5.1 mmol/L Final CHLORIDE Date Value Ref Range Status 08/02/2022 103 98 - 107 mmol/L Final CARBON DIOXIDE Date Value Ref Range Status 08/02/2022 30 22 - 30 mmol/L Final UREA NITROGEN Date Value Ref Range Status 08/02/2022 29 (H) 7 - 17 mg/dL Final CREATININE Date Value Ref Range Status 08/02/2022 0.81 0.52 - 1.04 mg/dL Final GLUCOSE Date Value Ref Range Status 08/02/2022 239 (H) 70 - 100 mg/dL Final CALCIUM Date Value Ref Range Status 08/02/2022 8.7 8.4 - 10.4 mg/dL Final No results found for: AST, ALT, PROT, BILITOT, ALKPHOS, INR, APTT, LIPASE No results found for: CKTOTAL, CKMB, TROPONINI No results found for: PROCAL, CHOL, TRIG, HDL, TSH, VITD25, HGBA1C, VANCOTROUGH Assessment and Plan: Principal Problem: Inflammatory reaction due to indwelling ureteral stent, initial encounter (HCC) Chronic Indwelling Jose Catheter 2/2 neurogenic bladder Hematuria Left UPJ Calculus -Plan for pt to have procedure with urology tomorrow -Continue jose at this time -Will monitor hgb, currently stable -Continue to hold eliquis -Meropenem per urology -UA pending -NPO at midnight - Underwent laser lithotripsy today, has stent in place tied to Jose. Will need follow up for this with Urology in ~1 month - Needs tunneled line removed this stay. Chronic LE Wound -No concern for infection at this time -Will have wound care see pt T2DM with Hyperglycemia -Lantus 10 U nightly +LDSSI -POCG ACHS -Hypoglycemia protocol - Glucose 160 this AM - Presently at in hospital goal Vascular/Alzheimer Dementia -Donepezil 10 mg daily -Melatonin 3 mg daily -Delirium protocol HFpEF -currently compensated -Lasix 40 mg bid Chronic pain -Oxycodone 5 mg q6h PRN -Baclofen 5 mg -Senna daily HTN -Lisinopril 10 mg daily HLD -Atorvastatin 20 mg daily Anxiety -Zoloft 50 mg daily Paroxysmal A. Fib -Holding Eliquis due to procedure Morbid Obesity Decreased Mobility -PT/OT - will Sleep apnea noncompliant with CPAP - BiPAP at night if she will agree - Goals of Care: FULL CODE - DVT Prophylaxis: Holding 2/2 procedure - GI Prophylaxis: Not Indicated - Diet: General, NPO at midnight - BMI Classification: Body mass index is 55.36 kg/m . Morbid Obesity (BMI >40) - Disposition: Admit to F. - Given the signs and symptoms associated with her primary diagnosis in the setting of her comorbid conditions, she is expected to require >48 hrs of hospital care (i.e. inpatient level care). Associated attestation - Deacon Tariq MD - 08/03/2022 3:56 PM EDT Attending Supervising Physician's Attestation Statement for Med Team Admission I have discussed the care of Salazar Coyle with the medical student and/or resident. I have personally taken a history, examined the patient, and performed the associated medical decision making activities. I have reviewed & verified the attested documentation. Unless otherwise noted below, this documentation reflects the history, physical exam, and medical decision making that I performed myself. Please see below for my personal highlights or additions to the note in Green. Patient was admitted last night by the admitting residents. Today was the first time I physically examined and spoke with the patient. Patient seen and examined by myself at 1500 on 08/03/2022 Arias Changes to Plan: 71 year old woman with history of recent ESBL E. Coli bacteremia with left UP calculus s/p stent and extended IV meropenem through 06/24, dementia, morbid obesity, PHOEBE, chronic Jose 2/2 neurogenic bladder, chronic pain who was admitted for laser lithotripsy and stent exchange after missing several outpatient appointments. She underwent her surgery this morning, and is currently recovering in PACU. Urology resumed IV Meropenem, reasonable to continue given ESBL E. Coli with sepsis 2 months ago and she did not follow up for lithotripsy and stent replacement in the recommended time frame. Appreciate ID input on whether this needs to be continued now that she had her lithotripsy today and had the stent exchanged. She will need follow up in 1 month with Urology, and will need her tunneled line removed this hospital stay. I spent a total of 40 minutes on the day of the visit obtaining history, discussing with consultants and care team, reviewing imaging and laboratory results, performing a physical exam and providing patient education and counseling. 7AM-5PM: Kay Resident who wrote note today from Service 5PM-7AM: Page "AI2" or "AI3" (In house Manager Universal) documented in this encounter [facility] 08-02-2022 Emergency department Note Patient has a 20Fr-30mL balloon catheter, cart ordered at this time. Geovani Dougherty RN 08/02/221726 [facility] 08-02-2022 Emergency department Note Report from pet trainer Chance, patient is from SNF, here for a jose catheter change before unknown surgery tomorrow. Patient states she is having stents placed and kidney stone removed. Noted soft boots to bilateral feet. Patient is alert and oriented x3, speaking in full sentences and answering questions appropriately. Respirations easy and non-labored, no distress noted. Skin is warm, dry and intact. She moves all extremities x2. Call light within reach. Will continue to monitor. Geovani Dougherty RN 08/02/22 1729 [facility] 08-02-2022 Emergency department Note Bed: 09 Expected date: 08/02/22 Expected time: Means of arrival: Comments: Offload Caitlin Johnson RN 08/02/22 1549 [facility] 08-02-2022 Physician Emergency department Note EMERGENCY DEPARTMENT ENCOUNTER Pt Name: Salazar Coyle Birthdate 1950 Date of evaluation: 08/02/2022 ED Provider: Milly Newby MD CHIEF COMPLAINT Chief Complaint Patient presents with jose replacement HISTORY OF PRESENT ILLNESS (Location/Symptom, Timing/Onset, Context/Setting, Quality, Duration, Modifying Factors, Severity) Note limiting factors. I wore appropriate PPE for the entirety of this encounter. HPI Salazar Coyle is a 71 y.o. female who presents to the emergency department for hematuria. States that this has been an ongoing problem for her. Was recently admitted for urinary tract infection with obstructing left ureteral calculus and had stent placed at that time. Was supposed to have stent removed in the interim but has missed 2 appointments due to difficulty with transportation from the facility at which she resides. Was instructed by urology to come the night before to ensure she will be here for procedure which is scheduled for tomorrow. States that she continues to have hematuria but denies dysuria, suprapubic pain. Has indwelling Jose at baseline. Denies fever, chills. Nursing Notes were reviewed. Limitations to history: None Outside historians: None REVIEW OF SYSTEMS Review of Systems Pertinent positives and negatives as per HPI. PAST MEDICAL HISTORY Past Medical History: Diagnosis Date A-fib (CMS/HCC) (HCC) Anemia Diabetes (HCC) Lymphedema Obesity SURGICAL HISTORY History reviewed. No pertinent surgical history. CURRENT MEDICATIONS Current Discharge Medication List CONTINUE these medications which have NOT CHANGED Details sertraline (Zoloft) 50 MG tablet Take 50 mg by mouth daily. apixaban (Eliquis) 5 MG tablet Take 1 tablet (5 mg) by mouth 2 times daily for 8 doses. Qty: 8 tablet, Refills: 0 ascorbic acid (Vitamin C) 250 MG tablet Take 250 mg by mouth daily. atorvastatin (Lipitor) 20 MG tablet Take 20 mg by mouth daily. baclofen (Lioresal) 5 MG tablet Take 1 tablet by mouth daily. Calcium Carbonate-Vitamin D (Oyster Shell Calcium/D) 500-5 MG-MCG tablet Take 1 tablet by mouth daily. !! donepezil (Aricept) 10 MG tablet Take 10 mg by mouth Nightly. !! donepezil (Aricept) 5 MG tablet doxycycline (Vibra-Tabs) 100 MG tablet ferrous sulfate 325 (65 Fe) MG EC tablet Take 1 tablet (325 mg) by mouth daily (with breakfast). Do not crush, chew, or split. Qty: 30 tablet, Refills: 11 furosemide (Lasix) 40 MG tablet Take 40 mg by mouth in the morning and 40 mg in the evening. insulin glargine (Lantus) 100 UNIT/ML injection Inject 10 Units under the skin Nightly. Qty: 10 mL, Refills: 12 Insulin Lispro (Humalog) 100 UNIT/ML solution injection Inject 0-18 Units under the skin 4 times daily (before meals and nightly). Qty: 10 mL, Refills: 12 lisinopril 10 MG tablet Take 10 mg by mouth daily. loperamide (Imodium) 2 MG capsule nystatin (Mycostatin) 115312 UNIT/GM powder oxyCODONE (Roxicodone) 5 MG immediate release tablet senna-docusate (Helena-Colace) 8.6-50 MG tablet Take 100 tablets by mouth Every 24 hours. !! - Potential duplicate medications found. Please discuss with provider. ALLERGIES Ertapenem FAMILY HISTORY No family history on file. SOCIAL HISTORY Social History Socioeconomic History Marital status: Tobacco Use Smoking status: Never Smokeless tobacco: Never Vaping Use Vaping Use: Never used Substance and Sexual Activity Alcohol use: Never Drug use: Never Sexual activity: Not Currently SCREENINGS PHYSICAL EXAM ED Triage Vitals [08/02/22 1528] Temp Heart Rate Resp BP 36.2 C (97.1 F) 68 18 (!) 147/38 SpO2 Temp src Heart Rate Source Patient Position 97 % -- -- -- BP Location FiO2 (%) -- -- Physical Exam Vitals and nursing note reviewed. Constitutional: General: She is not in acute distress. Appearance: She is well-developed. She is obese. HENT: Head: Normocephalic and atraumatic. Eyes: Conjunctiva/sclera: Conjunctivae normal. Cardiovascular: Rate and Rhythm: Normal rate and regular rhythm. Heart sounds: No murmur heard. Pulmonary: Effort: Pulmonary effort is normal. No respiratory distress. Breath sounds: Normal breath sounds. No wheezing, rhonchi or rales. Abdominal: Palpations: Abdomen is soft. Tenderness: There is no abdominal tenderness. There is no guarding or rebound. Musculoskeletal: Cervical back: Neck supple. Right lower leg: Edema present. Left lower leg: Edema present. Comments: 2+ nonpitting edema bilaterally with overlying chronic skin changes. Skin: General: Skin is warm and dry. Capillary Refill: Capillary refill takes less than 2 seconds. Findings: Rash (scabbed lesions present on b/l shins) present. Neurological: Mental Status: She is alert. DIAGNOSTIC RESULTS RADIOLOGY (Per Emergency Physician): Interpretation per the Radiologist below, if available at the time of this note: No orders to display LABS: Labs Reviewed CBC WITH AUTO DIFFERENTIAL - Abnormal Result Value Auto WBC 8.0 RBC 3.80 Hemoglobin 10.8 (*) Hematocrit 34.1 (*) MCV 89.7 MCH 28.4 MCHC 31.6 (*) RDW 20.8 (*) Platelets 241 MPV 9.0 nRBC 0.0 Neutrophils Relative 63.8 Lymphocytes Relative 23.7 Monocytes Relative 6.8 Eosinophils Relative 4.9 Basophils Relative 0.8 Neutrophils Absolute 5.1 Lymphocytes Absolute 1.9 Monocytes Absolute 0.5 Eosinophils Absolute 0.4 Basophils Absolute 0.1 BASIC METABOLIC PANEL - Abnormal SODIUM 136 POTASSIUM 4.7 CHLORIDE 103 CARBON DIOXIDE 30 UREA NITROGEN 29 (*) CREATININE 0.81 GLUCOSE 239 (*) CALCIUM 8.7 ANION GAP 3 eGFR 76.8 COMPLETE URINALYSIS WITH REFLEX TO CULTURE Narrative: The following orders were created for panel order Urinalysis complete with reflex to Culture. Procedure Abnormality Status --------- ------ Complete Urinalysis[[id number]] Please view results for these tests on the individual orders. COMPLETE URINALYSIS All other labs were within normal range or not returned as of this dictation. EMERGENCY DEPARTMENT COURSE and DIFFERENTIAL DIAGNOSIS/MDM: Vitals: Vitals: 08/02/22 1528 08/02/22 1816 08/02/22 1840 BP: (!) 147/38 (!) 144/50 113/51 Pulse: 68 72 78 Resp: 18 16 16 Temp: 36.2 C (97.1 F) SpO2: 97% 99% 98% Weight: (!) 156 kg (343 lb) Height: 1.676 m (5' 6") The patient presented with a chief complaint of hematuria. The differential diagnosis associated with this patient's presentation includes nephrolithiasis, inflammation secondary to ureteral stent. Our workup consisted of ordering/reviewing CBC, BMP. UA ordered for when patient produces urine. Workup consistent with hematuria. Patient's hemoglobin 10.8 which is above her baseline of 8-9. BMP shows creatinine 0.81 and GFR 76 which is consistent with patient's baseline. UA pending. Discussed with urology who will give dose of meropenem and recommends n.p.o. at midnight for stent removal tomorrow. Requesting a medical admission. Discussed with hospitalist team who accepted patient for admission. Patient is agreeable with the plan. Admitted in stable condition. Diagnoses as of 08/02/222003 Inflammatory reaction due to indwelling ureteral stent, initial encounter (HCC) External records reviewed: Inpatient notes reviewed prior admission with left obstructing renal calculus and urosepsis Diagnostics interpreted by me and the attending: none Discussions with other clinicians: Admitting team hospitalist and [facility] urology Chronic conditions impacting care: none Social determinants of health affecting care: Transportation difficulty ED Medications managed: Medications meropenem (Merrem) 2,000 mg in sodium chloride 0.9 % 100 mL IVPB (has no administration in time range) Prescription drugs considered: PROCEDURES: Unless otherwise noted below, none Procedures FINAL IMPRESSION 1. Inflammatory reaction due to indwelling ureteral stent, initial encounter ([facility]) DISPOSITION Admit 08/02/2022 05:51:37 PM PATIENT REFERRED TO: No follow-up provider specified. DISCHARGE MEDICATIONS: Current Discharge Medication List (Comment: Please note this report has been produced using speech recognition software and may contain errors related to that system including errors in grammar, punctuation, and spelling, as well as words and phrases that may be inappropriate. If there are any questions or concerns please feel free to contact the dictating provider for clarification.) Milly Newby MD (electronically signed) Emergency Medicine Provider Milly Newby MD Resident 08/02/222003 [facility] Phone: 08-02-2022 Physician Emergency department Note Emergency Department Encounter [facility] EMERGENCY DEPT Patient: Salazar Coyle : 1950 Date of Evaluation: 08/02/2022 ED Supervising Physician: Carlos Ayala DO I independently examined and evaluated Salazar Coyle. I wore a KN95 mask and gloves for the entirety of this encounter. In brief, Salazar Coyle is a 71 y.o. female that presents to the emergency department hematuria in the setting of known hematuria related to ureteral stent being managed by urology. To the emergency room due to difficulty coordinating outpatient cystoscopy. Patient is pleasantly confused, ANO x2. She has no acute complaints other than asking for a skin lesion to be scraped off during surgery tomorrow. She is afebrile and well-appearing. Focused exam: General appearance: Well-appearing, no acute distress. Psych: Awake alert and oriented 2, somewhat confused Skin: Warm and dry. Neck: Supple. Cardiovascular: Regular rate and rhythm. Lungs: Clear to auscultation bilaterally, no accessory muscle use, tachypnea, or retractions. Abdomen: Soft, nontender, and nondistended, no rebound, rigidity, or guarding, positive bowel sounds 4 quadrants. Obese abdomen Extremities: Warm and well perfused. NROM and SILT throughout upper and lower extermities. Brief ED course/MDM: Patient is hemodynamically stable and well-appearing. Plan for admission to facilitate outpatient procedure. EMERGENCY DEPARTMENT COURSE and DIFFERENTIAL DIAGNOSIS/MDM: Vitals: Vitals: 08/02/22 1528 08/02/22 1816 08/02/22 1840 BP: (!) 147/38 (!) 144/50 113/51 Pulse: 68 72 78 Resp: 18 16 16 Temp: 36.2 C (97.1 F) SpO2: 97% 99% 98% Weight: (!) 156 kg (343 lb) Height: 1.676 m (5' 6") All diagnostic, treatment, and disposition decisions were made by myself in conjunction with the LEONIDAS/Resident. I also supervised arias portions of any procedures performed by the LEONIDAS/Resident. For all further details of the patient's emergency department visit, please see their documentation. This will serve as my supervisory note and shared attestation. I did perform a substantiative portion of the visit including all aspects of the medical decision making. (Please note that portions of this note may have been completed with a voice recognition program. Efforts were made to edit the dictations but occasionally words are mis-transcribed.) Carlos Ayala DO Acute Care [facility] Carlos Ayala DO 08/02/22 1848 Carlos Ayala DO 08/02/22 2247 [facility] Phone: 08-02-2022 Telephone encounter Note Spoke with Deidra Vang (daughter and POA) Also office talked to Blu at [facility], who confirmed patient is being transferred to [facility] vis EMS today 08/02/22 This is due to blood in her urine Explained this is likely due to her stone/stent/chronic jose She NEEDS to have ureteroscopy which is currently scheduled for tomorrow 08/03/22 MUST be at [facility] due to patient comorbidities, habitus, need for JENIFER laser If patient is admitted to medicine service at [facility] then we can proceed with surgery as planned on 08/03/22 [facility] Phone: 08-02-2022 Miscellaneous Notes Spoke with Deidra Vang (daughter and POA) Also office talked to Blu at [facility], who confirmed patient is being transferred to [facility] vis EMS today 08/02/22 This is due to blood in her urine Explained this is likely due to her stone/stent/chronic jose She NEEDS to have ureteroscopy which is currently scheduled for tomorrow 08/03/22 MUST be at [facility] due to patient comorbidities, habitus, need for JENIFER laser If patient is admitted to medicine service at [facility] then we can proceed with surgery as planned on 08/03/22 Abdi from [facility] left a VM stating she will try calling our office tomorrow as well. Patient name and call back number given, but no other info. Will route to [place] [facility] and phone number for the patient's staff ([phone]) Contacted [facility] to confirm patient has transportation and will arrive 2 hours prior to surgery. The lady I spoke with stated she was unsure and the nurse that takes care of this patient was not available at the moment. She is going to give the information to the patient's nurse in charge and give me a call back ARIANE personally to confirm Patient was a no-show for surgery several weeks ago. Has an indwelling stent that must be removed/and stone treated Known transportation issues Patient requires Ambulance/Cot for transportation as she is non-ambulatory Please confirm with Patient's Nursing Facility that transportation is arranged and confirmed. She must be at [facility] AT LEAST 2 HOURS PRIOR to schedule start time for her surgery this week Thank you ! documented in this encounter [facility] 08-02-2022 Miscellaneous Notes Spoke with Deidra Vang (daughter and POA) Also office talked to Blu at [facility], who confirmed patient is being transferred to [facility] vis EMS today 08/02/22 This is due to blood in her urine Explained this is likely due to her stone/stent/chronic jose She NEEDS to have ureteroscopy which is currently scheduled for tomorrow 08/03/22 MUST be at [facility] due to patient comorbidities, habitus, need for JENIFER laser If patient is admitted to medicine service at [facility] then we can proceed with surgery as planned on 08/03/22 Abdi from [facility] left a VM stating she will try calling our office tomorrow as well. Patient name and call back number given, but no other info. Will route to [place] [facility] and phone number for the patient's staff ([phone]) Contacted [facility] to confirm patient has transportation and will arrive 2 hours prior to surgery. The lady I spoke with stated she was unsure and the nurse that takes care of this patient was not available at the moment. She is going to give the information to the patient's nurse in charge and give me a call back ARIANE personally to confirm Patient was a no-show for surgery several weeks ago. Has an indwelling stent that must be removed/and stone treated Known transportation issues Patient requires Ambulance/Cot for transportation as she is non-ambulatory Please confirm with Patient's Nursing Facility that transportation is arranged and confirmed. She must be at [facility] AT LEAST 2 HOURS PRIOR to schedule start time for her surgery this week Thank you ! documented in this encounter [facility] 08-02-2022 Telephone encounter Note Abdi from [facility] left a VM stating she will try calling our office tomorrow as well. Patient name and call back number given, but no other info. Will route to [place] as FYI and phone number for the patient's staff ([phone] extension [phone]) [facility] 08-01-2022 Telephone encounter Note Contacted [facility] to confirm patient has transportation and will arrive 2 hours prior to surgery. The lady I spoke with stated she was unsure and the nurse that takes care of this patient was not available at the moment. She is going to give the information to the patient's nurse in charge and give me a call back ARIANE personally to confirm [facility] 08-01-2022 Miscellaneous Notes Contacted [facility] to confirm patient has transportation and will arrive 2 hours prior to surgery. The lady I spoke with stated she was unsure and the nurse that takes care of this patient was not available at the moment. She is going to give the information to the patient's nurse in charge and give me a call back ARIANE personally to confirm Patient was a no-show for surgery several weeks ago. Has an indwelling stent that must be removed/and stone treated Known transportation issues Patient requires Ambulance/Cot for transportation as she is non-ambulatory Please confirm with Patient's Nursing Facility that transportation is arranged and confirmed. She must be at [facility] AT LEAST 2 HOURS PRIOR to schedule start time for her surgery this week Thank you ! documented in this encounter [facility] 07-31-2022 Telephone encounter Note Patient was a no-show for surgery several weeks ago. Has an indwelling stent that must be removed/and stone treated Known transportation issues Patient requires Ambulance/Cot for transportation as she is non-ambulatory Please confirm with Patient's Nursing Facility that transportation is arranged and confirmed. She must be at [facility] AT LEAST 2 HOURS PRIOR to schedule start time for her surgery this week Thank you ! [facility] [employer] Phone: 07-20-2022 Telephone encounter Note Received call back from [facility], they are trying to find a transportation company to get patient to the hospital. She is aware of the risks having the tunneled line in place for almost a month after ATB has been completed. She stated she will work on this and if necessary she will have 911 transport to hospital. [facility] 07-20-2022 Miscellaneous Notes Received call back from [facility], they are trying to find a transportation company to get patient to the hospital. She is aware of the risks having the tunneled line in place for almost a month after ATB has been completed. She stated she will work on this and if necessary she will have 911 transport to hospital. Call placed to [facility] in regards to tunneled line removal that was scheduled for 07/13 then rescheduled for today 07/18/22. Left message for DON to return call due to line still not removed. documented in this encounter [facility] 07-18-2022 Telephone encounter Note Call placed to [facility] in regards to tunneled line removal that was scheduled for 07/13 then rescheduled for today 07/18/22. Left message for DON to return call due to line still not removed. [facility] 06-26-2022 Telephone encounter Note Received call from Rocio BARRETO advised that instructions have already been faxed and verbalized to ESTEVAN Singh . Rocio verbalizes understanding . Reiterated t/d/l and when to report [facility] 06-26-2022 Miscellaneous Notes Received call from Rocio BARRETO advised that instructions have already been faxed and verbalized to ESTEVAN Singh . Rocio verbalizes understanding . Reiterated t/d/l and when to report Spoke with patient's daughter Deidra. She advised me to call [facility] to give instructions and make the m aware as well. Spoke with nurse Singh and gave surgery d/t/l and instructions. She asked to have them faxed over as well at [phone]. OR Request for Darci PROCEDURE: cystoscopy, left ureteroscopy with laser lithotripsy and stent exchange DIAGNOSIS: left UPJ calculus FACILITY: [facility] DETAILS: OUTPT ANESTHESIA: GENERAL TIME REQUESTED: 2hr DATE REQUESTED: 3-4 weeks SURGERY ORDERS: will be Placed by Jimmy Bejarano POST OP FOLLOW UP: TBD REP REQUESTED: No SPECIAL NEEDS: Must be OR 14 or 17 at [facility] due to body habitus/ medical comorbidities PAT: No recently admitted MEDICAL CLEARANCE: no Currently admitted at [facility] Nabor Gay is POA Phone number in chart documented in this encounter [facility] 06-20-2022 Telephone encounter Note Spoke with patient's daughter Deidra. She advised me to call [facility] to give instructions and make the m aware as well. Spoke with nurse Samantha and gave surgery d/t/l and instructions. She asked to have them faxed over as well at [phone]. [facility] 06-20-2022 Miscellaneous Notes Spoke with patient's daughter Deidra. She advised me to call [facility] to give instructions and make the m aware as well. Spoke with nurse Samantha and gave surgery d/t/l and instructions. She asked to have them faxed over as well at [phone]. OR Request for Darci PROCEDURE: cystoscopy, left ureteroscopy with laser lithotripsy and stent exchange DIAGNOSIS: left UPJ calculus FACILITY: [facility] DETAILS: OUTPT ANESTHESIA: GENERAL TIME REQUESTED: 2hr DATE REQUESTED: 3-4 weeks SURGERY ORDERS: will be Placed by Jimmy Bejarano POST OP FOLLOW UP: TBD REP REQUESTED: No SPECIAL NEEDS: Must be OR 14 or 17 at [facility] due to body habitus/ medical comorbidities PAT: No recently admitted MEDICAL CLEARANCE: no Currently admitted at [facility] Daughter Deidra is POA Phone number in chart documented in this encounter [facility] 06-16-2022 History of Present illness Narrative [facility] - Infectious Diseases Attending Progress Note Subjective: No new complaints, denies fever, abdominal or flank pain. Asking assistance to be able to eat her supper. Objective: Vitals: Patient Vitals for the past 24 hrs: BP Temp Temp src Pulse Resp SpO2 06/16/22 0357 -- 36.4 C (97.5 F) Temporal 66 17 91 % 06/15/22 2335 -- 36.3 C (97.4 F) Temporal 69 18 96 % 06/15/22 1959 (!) 140/74 36.3 C (97.4 F) Temporal 65 18 98 % Physical Exam Vitals reviewed. Constitutional: General: She is not in acute distress. Appearance: Normal appearance. She is obese. She is not ill-appearing. Eyes: Extraocular Movements: Extraocular movements intact. Pupils: Pupils are equal, round, and reactive to light. Cardiovascular: Rate and Rhythm: Normal rate and regular rhythm. Heart sounds: Normal heart sounds. No murmur heard. Pulmonary: Effort: Respiratory distress present. Breath sounds: Normal breath sounds. Abdominal: General: There is no distension. Palpations: Abdomen is soft. Tenderness: There is no abdominal tenderness. Skin: Findings: No erythema or rash. Neurological: Mental Status: She is alert. Psychiatric: Mood and Affect: Mood normal. Thought Content: Thought content normal. Labs: Lab Results Component Value Date/Time NA 142 06/16/2022 0011 K 3.8 06/16/2022 0011 CL 112 (H) 06/16/2022 0011 CO2 28 06/16/2022 001 BUN 47 (H) 06/16/2022 001 CREATININE 0.85 06/16/2022 001 CREATININE 1.32 (H) 04/14/2021 0254 GLUCOSE 237 (H) 06/16/2022 0011 CALCIUM 7.8 (L) 06/16/2022 0011 PROT 4.9 (L) 06/16/2022 001 BILITOT 0.5 06/16/2022 0011 ALKPHOS 65 06/16/2022 0011 AST 15 06/16/2022 0011 ALT 9 06/16/2022 0011 PROCAL 76.84 (H) 06/11/2022 0322 PROCAL 17.91 (H) 06/09/2022 1640 PROCAL 0.06 03/08/2021 1558 Lab Results Component Value Date/Time WBC 9.0 06/16/2022 0011 HGB 7.5 (L) 06/16/2022 0011 HCT 24.3 (L) 06/16/2022 0011 PLT 180 06/16/2022 0011 GRANULOCYTES 46.9 04/14/2021 0254 LYMPHOPCT 22 06/16/2022 0011 LYMPHOPCT 12.3 (L) 06/13/2022 0600 MONOPCT 2 06/16/2022 0011 MONOPCT 4.4 06/13/2022 0600 LABEOS 5.3 04/14/2021 0254 BASOPCT 0.2 06/13/2022 0600 NEUTROABS 6.7 06/13/2022 0600 Micro: reviewed Lines: Tunneled line 06/15 Radiography/Echo/Other: reviewed Antimicrobials, Start/End Dates: Ertapenem to 06/24 planned Impression: 71F, Severe sepsis with encephalopathy, WHITLEY, lactic acidosis, hypotension(off pressors,), thrombocytopenia-slowly improving Obstructive uropathy with renal calculi s/p C+P with ureteral stenting on 06/10-Cx ESBL E coli, and anaerobic GPR; already on Carbapenem Chronic jose requiring due to h/o neurogenic bladder, and urinary retention, and infections since 2017. ESBL E coli BSI from above, follow up BC from 06/11 still +. 06/14 BC likely contaminant. Overall improving. Plan: Complete 2 week course of antibiotic as oult;ined previously. OK to DC to ECF. Can pull line per IR afterwards. Follow up with service. [facility] Progress Note Subjective/ 71 y.o. year old female who we are seeing in consultation for WHITLEY. NAEON Resting in bed Feels "okay" Appetite fair Denies chest pain/SOB No other new issues at this time ROS done and negative unless mentioned as above No change in PFSH All data labs/interval notes and overnight issues are reviewed Objective/ Vitals: 06/15/22 1417 06/15/22 1959 06/15/22 2335 06/16/22 0357 BP: (!) 140/74 BP Location: Left arm Patient Position: Lying Pulse: 65 65 69 66 Resp: 14 18 18 17 Temp: 36.3 C (97.4 F) 36.3 C (97.4 F) 36.4 C (97.5 F) TempSrc: Temporal Temporal Temporal SpO2: 97% 98% 96% 91% Weight: Height: Intake/Output Summary (Last 24 hours) at 06/16/2022 1135 Last data filed at 06/16/2022 1100 Gross per 24 hour Intake 236 ml Output 335 ml Net -99 ml apixaban, 5 mg, Oral, BID atorvastatin, 20 mg, Oral, Daily baclofen, 5 mg, Oral, BID ertapenem, 1,000 mg, IntraVENous, q24h [Held by provider] gabapentin, 100 mg, Oral, BID insulin glargine, 10 Units, SubCUTAneous, Nightly insulin lispro, 0-18 Units, SubCUTAneous, 4x daily AC & HS lisinopril, 10 mg, Oral, Daily pantoprazole, 40 mg, Oral, Nightly Or pantoprazole, 40 mg, IntraVENous, Nightly sodium chloride 0.9%, 5-40 mL, IntraVENous, 2 times per day PRN medications: dextrose, dextrose, glucagon (rDNA), glucose, ondansetron, sodium chloride, sodium chloride 0.9% Constitutional: Alert, awake, slow to respond, no apparent distress Eyes: No icterus, no pallor HEENT: no pallor/cyanosis or icterus Cardiovascular: S1, S2 without m/r/g Respiratory: CTA B without w/r/r GI: +bs, soft, nt : jose absent Ext: trace BLE edema Neck: supple, no thyroid enlargement, no JVD elevation Skin: warm, moist, no rashes Results from last 7 days Lab Units 06/16/22 0011 06/15/22 0357 06/14/22 0603 SODIUM mmol/L 142 144 143 POTASSIUM mmol/L 3.8 3.8 3.5 CHLORIDE mmol/L 112* 113* 114* CO2 mmol/L 28 30 27 BUN mg/dL 47* 54* 61* CREATININE mg/dL 0.85 0.96 1.05* GLUCOSE mg/dL 237* 173* 131* CALCIUM mg/dL 7.8* 7.8* 7.9* Results from last 7 days Lab Units 06/16/22 0011 06/15/22 0357 06/14/22 0603 WBC AUTO 10*3/uL 9.0 9.2 11.4* HEMOGLOBIN g/dL 7.5* 8.7* 8.2* HEMATOCRIT % 24.3* 27.0* 26.0* PLATELETS AUTO 10*3/uL 180 138* 81* Assessment 1. WHITLEY/ATN 2/2 severe sepsis and septic shock (resolved) 2. Gram-negative bacteremia 3. 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 CKD3b 5. Morbid obesity BMI 46.65 6. Urinary tract infection 7. Acute hypokalemia (resolved) 8. 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 Ok for discharge planning from renal standpoint, outpatient BMP ordered and needs close follow up with nephrology in 1 week We will follow. Patricia Do APRN, MANAGER PRESENTATION [facility], [facility] [phone] Nutrition Assessment Type and Reason for Visit: Reassess Nutrition Recommendations/Plan: Continue with Adult diet Easy to Chew; 4 carb choices (60 gm/meal) +wounds- trial orange Pete once daily per MNT protocol for now. Pt seemed uncertain about trying, but per previous RD notes, pt has liked them in the past. Pete provides 90 kcals, 14 g amino acids, and 300 mg Vitamin C per packet serving. Please document pt's PO intakes via flowsheet to accurately assess PO intake adequacy. Monitor intakes, weights, and labs weekly. RD will follow. Malnutrition Assessment: Malnutrition Status: At risk for malnutrition (Comment) (wounds, hx of wt loss) Context: Acute Illness Findings of the 6 clinical characteristics of malnutrition: Energy Intake: No significant decrease in energy intake Weight Loss: (Suggested 11.6% wt loss in >1 yr (based on CBW 344# and weight of 389# from 04/2021)) Body Fat Loss: Unable to assess Muscle Mass Loss: Unable to assess Fluid Accumulation: Mild Extremities Dry Cleaning Manager Strength: Not Performed Nutrition Assessment: Pt is awake and does respond slowly to questions. Does not elaborate much, providing mostly yes or no responses, but not in an abrupt, impolite way. Pt may just be a poor historian. Pt with multiple noted skin breakdowns. Does appear that pt has tried Pete in the past and it was noted that pt liked the orange flavor. RD asked pt if she recalls taking Pete in the past, but pt could not remember. Pt seemed indecisive if she wanted to try it or not. Can trial once daily for now to assess pt's intakes and preference. Denies any chewing/swallowing deficits to RD. Estimated Daily Nutrient Needs: Energy Requirements Based On: Kcal/kg Weight Used for Energy Requirements: [place] Weight for Energy Calculation (kg): 59 kg Total Energy Requirements (kcals/day): 3786-8963 kcals (25-30) Weight Used for Protein Requirements: [place] Weight in Kg Used for Protein Requirements: 59 kg Estimated Total Protein (g/day): 59-77 (1.0-1.3) Estimated Daily Total Fluid (ml/day): 9910-0917 ml/day or per MD Nutrition Related Findings: non pitting BLE, mild BUE edema; Cl 113, BUN 54, Glucose 173, Corrected ca++ 8.6, Phos 3.7, Mag 1.8, Hgb 8.7, Hct 27, albumin 2.7 Wound Type: Multiple, Venous Stasis (deep red skin folds, red/brown coccyx, left upper posterior traumatic leg injury, right pinky toe amputation site, L/R pretibial venous ulcers) Current Nutrition Therapies: Adult diet Easy to Chew; 4 carb choices (60 gm/meal) Current Oral Intake Average Meal Intake: 51-75% Average Supplements Intake: None Ordered Anthropometric Measures: Height: 167.6 cm (5' 6") Current Body Weight: 156 kg (344 lb) Weight Source: Not Specified Admission Body Weight: 131 kg (289 lb) Usual Body Weight: 176 kg (389 lb) (April 2021) % Weight Change (Calculated): -25.7 [place] Body Weight (lbs) (Calculated): 130 lbs [place] Body Weight (Kg) (Calculated): 59 kg % [place] Body Weight (Calculated): 264.6 % BMI (kg/m2) (Calculated): 55.5 Weight Adjustment For: No Adjustment BMI Categories: Obese Class 3 (BMI 40.0 or greater) Nutrition Diagnosis: Increased nutrient needs, Other (Comment) (protein) related to increase demand for energy/nutrients as evidenced by wounds Nutrition Interventions: Nutrition Education/Counseling: No recommendation at this time Coordination of Nutrition Care: Continue to monitor while inpatient Plan of Care discussed with: Pt Goals: Previous Goal Met: Progressing toward Goal(s) Goals: PO intake 75% or greater, by next RD assessment Nutrition Monitoring and Evaluation: Behavioral-Environmental Outcomes: None Identified Food/Nutrient Intake Outcomes: Diet Advancement/Tolerance, Food and Nutrient Intake, Supplement Intake Physical Signs/Symptoms Outcomes: Biochemical Data, GI Status, Fluid Status or Edema, Nutrition Focused Physical Findings, Weight, Skin Discharge Planning: Continue current diet, Continue Oral Nutrition Supplement Agustin Galeano RD Contact: *[phone] or via Secure Chat Images from the original note were not included. [facility] [place] Pul[place] [address] [place] [id number] Patient - Salazar Coyle, Age - 71 y.o. - 1950 Room Number - [id number]/[id number] A Consulting - Elise Park MD Primary Care Physician - Paige Rivera DO Date of Admission - 06/09/2022 11:12 AM Hospital Day - 6 Chief Complaint Salazar Coyle is a 71 y.o. female with severe morbid obesity, history of atrial fibrillation on apixaban type 2 diabetes chronic lymphedema admitted to the hospital via emergency from room from an extended care facility for low-grade fever, change in mental status patient also has history of underlying dementia patient previously had been treated for UTI at the nursing facility Patient found to be in septic shock with E. coli bacteremia with multi organ system dysfunction Interval History Patient resting comfortably in the bed currently on room air Patient declined to use PAP therapy I checked pulse oximetry on room air by the bedside Oxygen saturation was 97 percentile Patient denies any shortness of breath or chest pain No respiratory distress All other systems reviewed Objective Vitals: BP (!) 95/49 (BP Location: Left arm, Patient Position: Lying) Pulse 58 Temp 36 C (96.8 F) (Temporal) Resp 18 Ht 5' 6" (1.676 m) Wt (!) 344 lb 9.3 oz (156 kg) SpO2 90% BMI 55.62 kg/m Pulse Ox: SpO2 Av.7 % Min: 88 % Max: 99 % Supplemental O2: O2 Flow Rate (L/min): 2 L/min (decreased 1L) I/O 24HR INTAKE/OUTPUT: Intake/Output Summary (Last 24 hours) at 06/15/2022 1149 Last data filed at 06/15/2022 0700 Gross per 24 hour Intake -- Output 1075 ml Net -1075 ml Exam General appearance: Awake, alert, no acute distress. On room air HEENT: Normocephalic, atraumatic. No scleral icterus, no right/left eye discharge. Conjunctivae normal. Pupils equal round and reactive to light. Right external ear normal, Left external ear normal. No congestion. Mouth: mucous membranes moist. Pharynx, Oropharynx is clear. No oropharyngeal exudate. Neck: ROM normal, No thyromegaly. No cervical lymphadenopathy Cardiovascular: Regular rate and irregular rhythm. Heart sounds normal. Negative for murmur, friction rub or gallop. Pulmonary: Effort normal, no respiratory distress. No stridor Fevers or rails no wheezing Abdomen: Soft, no distention, no abdominal tenderness. No guarding. No masses. Musculoskeletal: ROM normal, Negative for swelling, tenderness or deformity. Skin: Warm and dry. Skin is not jaundiced. No rash Extremities: No clubbing, cyanosis, Bilateral nonpitting extremity edema Neurological: No focal deficits. Alert and oriented x person, place and time. Mental status is at baseline. No motor weakness. Psychiatric: Mood, behavior, thought content normal. Cooperative with exam. Medications Current Medications apixaban, 5 mg, Oral, BID atorvastatin, 20 mg, Oral, Daily baclofen, 5 mg, Oral, BID ertapenem, 1,000 mg, IntraVENous, q24h [Held by provider] gabapentin, 100 mg, Oral, BID insulin glargine, 10 Units, SubCUTAneous, Nightly insulin lispro, 0-18 Units, SubCUTAneous, 4x daily AC & HS lisinopril, 20 mg, Oral, Daily pantoprazole, 40 mg, Oral, Nightly Or pantoprazole, 40 mg, IntraVENous, Nightly sodium chloride 0.9%, 5-40 mL, IntraVENous, 2 times per day PRN Mediations PRN medications: dextrose, dextrose, glucagon (rDNA), glucose, ondansetron, sodium chloride, sodium chloride 0.9% IV Drips/Infusions Labs CBC Results from last 7 days Lab Units 06/15/22 0357 WBC AUTO 10*3/uL 9.2 HEMOGLOBIN g/dL 8.7* HEMATOCRIT % 27.0* PLATELETS AUTO 10*3/uL 138* BMP: Results from last 7 days Lab Units 06/15/22 0357 06/14/22 0603 06/13/22 0600 SODIUM mmol/L 144 143 141 POTASSIUM mmol/L 3.8 3.5 4.1 CHLORIDE mmol/L 113* 114* 111* CO2 mmol/L 30 27 27 BUN mg/dL 54* 61* 63* CREATININE mg/dL 0.96 1.05* 1.41* GLUCOSE mg/dL 173* 131* 240* CALCIUM mg/dL 7.8* 7.9* 7.9* ABG: LIVER PROFILE Results from last 7 days Lab Units 06/15/22 0357 06/14/22 0603 06/13/22 0600 06/09/22 1640 06/09/22 1132 ALK PHOS U/L 61 65 58 < > 120 BILIRUBIN TOTAL mg/dL 0.6 0.7 0.8 < > 1.0 BILIRUBIN DIRECT mg/dL -- -- -- -- 0.0 PROTEIN TOTAL g/dL 5.2* 5.2* 5.3* < > 6.1* ALT U/L 10 10 11 < > 11 AST U/L 15 22 20 < > 24 < > = values in this interval not displayed. INR No lab exists for component: PT PTT No results found for: PTT Cultures E. coli bacteremia Radiology Chest x-ray reviewed increased interstitial prominence Active Hospital Problem List Patient Active Problem List Diagnosis Hypertension Edema Foot ulcer ([facility]) Hyperlipemia Bladder spasm Type 2 diabetes mellitus with hyperglycemia ([facility]) ([facility]) Wounds, multiple Degenerative disc disease, cervical Chronic pain Osteoarthrosis PAF (paroxysmal atrial fibrillation) ([facility]) [facility] [facility]) Cognitive decline Morbid obesity with BMI of 60.0-69.9, adult ([facility] ([facility]) 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 ([facility]) Recurrent UTI Cerebrovascular accident ([facility]) Hyperglycemia Chronic indwelling Jose catheter CKD (chronic kidney disease) Asymptomatic bacteriuria Anemia Septic shock ([facility]) ([facility]) Assessment and Plan Severe sepsis status post septic shock due to E. coli ESBL/bacteremia, /improving off Levophed continue with antibiotics monitor hemodynamics Left UPJ calculus and hydronephrosis status post cystoscopy/ureteroscopy and stent placement in the left ureter by urology Lactic acidosis normal now Hypoxemia resolving Currently on room air Titrate FiO2 to keep O2 sat 92 percentile Diabetes type 2 with hyperglycemia, improve glycemic control History of paroxysmal A-fib, patient on apixaban currently patient refusing to take pills on IV heparin currently Acute kidney injury on chronic kidney disease stage III/ATN related to above creatinine is gradually improving, bicarb infusion has been discontinued-monitor BMP Heart failure with preserved ejection fraction Follow-up chest imaging Severe morbid obesity history of sleep apnea noncompliant with PAP therapy Patient refusing PAP therapy Right lower lobe lung nodule repeat CAT scan of the chest in 3 months Alzheimer's/vascular dementia refusing to take pills Drop in H&H Status post blood transfusion Follow serial H&H Monitor for any signs of bleeding Oxygen saturation has been educate currently on room air oxygen saturation 97 percentile Patient declined to use any PAP therapy We will sign off the case at this point, please call us if needed Advance Directive: Full Code Case discussed with nurse and patient/ Questions and concerns addressed. This is a non-billable note. Patient out of ICU now on 4S for further medical monitoring/workup. Nephrology to follow on d/c. Discharging with jose. and PICC placed for atbx-->06-24-22 for E.Coli ESBL bacteremia. Therapy has recommended SNF and will return to current facility, [facility] on d/c. Palliative care was following peripherally. Will now s/o as goals are clear and no symptoms to manage at this time. Please re-consult the service should further needs arise prior to d/c . Signed, Kailey Bowman APRN, CNP Palliative Care/Hospice #[id number] [facility] - Infectious Diseases Attending Progress Note Subjective: Patient off floor for line placement. No acute events, and feels better per at bedside. Objective: Vitals: Patient Vitals for the past 24 hrs: BP Temp Temp src Pulse Resp SpO2 Weight 06/15/22 0900 -- -- -- -- -- -- (!) 156 kg (344 lb 9.3 oz) 06/15/22 0750 111/85 35.9 C (96.7 F) Temporal 58 14 (!) 88 % -- 06/15/22 0403 (!) 150/64 -- -- -- -- -- -- 06/15/22 0346 (!) 169/51 36.2 C (97.2 F) Temporal 58 16 99 % -- 06/15/22 0043 109/85 36.1 C (97 F) Temporal 59 18 97 % -- 06/14/22 2110 (!) 129/95 36.3 C (97.4 F) Temporal 56 17 96 % -- 06/14/22 1627 -- 36.4 C (97.5 F) Temporal 52 17 92 % -- 06/14/22 1449 102/71 -- -- -- -- -- -- Physical Exam Vitals reviewed. Labs: Lab Results Component Value Date/Time NA 144 06/15/2022 035 K 3.8 06/15/2022 035 CL 113 (H) 06/15/2022 035 CO2 30 06/15/2022356 BUN 54 (H) 06/15/2022356 CREATININE 0.96 06/15/2022356 CREATININE 1.32 (H) 04/14/2021 0254 GLUCOSE 173 (H) 06/15/2022356 CALCIUM 7.8 (L) 06/15/2022 035 PROT 5.2 (L) 06/15/2022 035 BILITOT 0.6 06/15/2022 035 ALKPHOS 61 06/15/2022 0357 AST 15 06/15/2022 0357 ALT 10 06/15/2022 0357 PROCAL 76.84 (H) 06/11/2022 0322 PROCAL 17.91 (H) 06/09/2022 1640 PROCAL 0.06 03/08/2021 1558 Lab Results Component Value Date/Time WBC 9.2 06/15/20227 HGB 8.7 (L) 06/15/2022 035 HCT 27.0 (L) 06/15/2022 0357 PLT 138 (L) 06/15/2022 0357 GRANULOCYTES 46.9 04/14/2021 0254 LYMPHOPCT 26 06/15/2022 0357 LYMPHOPCT 12.3 (L) 06/13/2022 0600 MONOPCT 1 (L) 06/15/2022 035 MONOPCT 4.4 06/13/2022 0600 LABEOS 5.3 04/14/2021 0254 BASOPCT 0.2 06/13/2022 0600 NEUTROABS 6.7 06/13/2022 0600 Micro: 06/14 BC: 1 set CONS 06/09 and 06/11 BC+ E SBL E coli Lines: PIV Radiography/Echo/Other: reviewed Antimicrobials, Start/End Dates: Ertapenem Impression: 71F, Severe sepsis with encephalopathy, WHITLEY, lactic acidosis, hypotension(off pressors,), thrombocytopenia-slowly improving Obstructive uropathy with renal calculi s/p C+P with ureteral stenting on 06/10-Cx ESBL E coli, and anaerobic GPR; already on Carbapenem Chronic jose requiring due to h/o neurogenic bladder, and urinary retention, and infections since 2016. ESBL E coli BSI from above, follow up BC from 06/11 still +. 06/14 BC likely contaminant. Plan: As above, OK for line placement at this time. Treatment course at least to 06/24. OPAt order to b e scanned in. Dispo to ECF soon. [facility] Progress Note Subjective/ 71 y.o. year old female who we are seeing in consultation for WHITLEY. NAEON Resting in bed Feels "okay" Appetite fair Denies chest pain/SOB No other new issues at this time ROS done and negative unless mentioned as above No change in PFSH All data labs/interval notes and overnight issues are reviewed Objective/ Vitals: 06/15/22 0346 06/15/22 0403 06/15/22 0750 06/15/22 0900 BP: (!) 169/51 (!) 150/64 111/85 BP Location: Left arm Right arm Left arm Patient Position: Lying Lying Lying Pulse: 58 58 Resp: 16 14 Temp: 36.2 C (97.2 F) 35.9 C (96.7 F) TempSrc: Temporal Temporal SpO2: 99% (!) 88% Weight: (!) 156 kg (344 lb 9.3 oz) Height: Intake/Output Summary (Last 24 hours) at 06/15/2022 1024 Last data filed at 06/15/2022 0700 Gross per 24 hour Intake -- Output 1075 ml Net -1075 ml apixaban, 5 mg, Oral, BID atorvastatin, 20 mg, Oral, Daily baclofen, 5 mg, Oral, BID ertapenem, 1,000 mg, IntraVENous, q24h [Held by provider] gabapentin, 100 mg, Oral, BID insulin glargine, 10 Units, SubCUTAneous, Nightly insulin lispro, 0-18 Units, SubCUTAneous, 4x daily AC & HS lisinopril, 20 mg, Oral, Daily pantoprazole, 40 mg, Oral, Nightly Or pantoprazole, 40 mg, IntraVENous, Nightly sodium chloride 0.9%, 5-40 mL, IntraVENous, 2 times per day PRN medications: dextrose, dextrose, glucagon (rDNA), glucose, ondansetron, sodium chloride, sodium chloride 0.9% Constitutional: Alert, awake, slow to respond, no apparent distress Eyes: No icterus, no pallor HEENT: no pallor/cyanosis or icterus Cardiovascular: S1, S2 without m/r/g Respiratory: CTA B without w/r/r GI: +bs, soft, nt : jose absent Ext: trace BLE edema Neck: supple, no thyroid enlargement, no JVD elevation Skin: warm, moist, no rashes Results from last 7 days Lab Units 06/15/22 0357 06/14/22 0603 06/13/22 0600 SODIUM mmol/L 144 143 141 POTASSIUM mmol/L 3.8 3.5 4.1 CHLORIDE mmol/L 113* 114* 111* CO2 mmol/L 30 27 27 BUN mg/dL 54* 61* 63* CREATININE mg/dL 0.96 1.05* 1.41* GLUCOSE mg/dL 173* 131* 240* CALCIUM mg/dL 7.8* 7.9* 7.9* Results from last 7 days Lab Units 06/15/22 0357 06/14/22 0603 06/13/22 0600 WBC AUTO 10*3/uL 9.2 11.4* 8.1 HEMOGLOBIN g/dL 8.7* 8.2* 8.1* HEMATOCRIT % 27.0* 26.0* 25.6* PLATELETS AUTO 10*3/uL 138* 81* 51* Assessment 1. WHITLEY/ATN 2/2 severe sepsis and septic shock (resolved) 2. Gram-negative bacteremia 3. 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 CKD3b 5. Morbid obesity BMI 46.65 6. Urinary tract infection 7. Acute hypokalemia (resolved) 8. Anemia in CKD RECOMMENDATIONS: ATN back to baseline and stable, bl~1.4, non-oliguric, BP improving BP has been soft to low with up titration of Lisinopril. 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 Ok for discharge planning from renal standpoint, outpatient BMP ordered and needs close follow up with nephrology in 1 week We will follow. Patricia Do APRN, MANAGER PRESENTATION [facility], [facility] [phone] I have reviewed the above assessment and plan with the HAND I THERMAL CUTTER. I agree with above note. Images from the original note were not included. Hospitalist Progress Note 06/15/2022 [phone]: Please page me ([phone]) for patient care issues. [phone]: Please page [facility] night Hospitalist for any issues. Subjective: Admit Date: 06/09/2022 PCP: Paige Rivera, Room#: B0-949/[id number] A Interval History: No overnight issues. Denies chest pain, sob, abdominal pain, nausea, vomiting, diarrhea, constipation, fevers, or chills. Adult diet Easy to Chew; 4 carb choices (60 gm/meal) @[id number]@ 24HR INTAKE/OUTPUT: Intake/Output Summary (Last 24 hours) at 06/15/2022 0957 Last data filed at 06/15/2022 0700 Gross per 24 hour Intake -- Output 1075 ml Net -1075 ml Past Medical History: Past Medical History: Diagnosis Date A-fib (CMS/HCC) (HCC) Anemia Diabetes (HCC) Lymphedema Obesity LABS: CBC: Recent Labs 06/13/22 0606/14/22 0606/15/22 0357 WBC 8.1 11.4* 9.2 RBC 3.15* 3.19* 3.35* HGB 8.1* 8.2* 8.7* HCT 25.6* 26.0* 27.0* MCV 81.2 81.5 80.7 RDW 17.9* 18.1* 18.1* PLT 51* 81* 138* BMP: Recent Labs 06/13/22 0606/14/22 0606/15/22 035 NA 141 143 144 K 4.1 3.5 3.8 CL 111* 114* 113* CO2 27 27 30 BUN 63* 61* 54* CREATININE 1.41* 1.05* 0.96 GLUCOSE 240* 131* 173* CALCIUM 7.9* 7.9* 7.8* ANIONGAP 3 3 1* LIVER PROFILE: Recent Labs 06/13/22 0606/14/22 0606/15/22 035 AST 20 22 15 ALT 11 10 10 BILITOT 0.8 0.7 0.6 ALKPHOS 58 65 61 PROT 5.3* 5.2* 5.2* PT/INR: No results for input(s): PROTIME, INR in the last 72 hours. CARDIAC ENZYMES: No results for input(s): TROPONINI in the last 72 hours. Procalcitonin: No results found for: PROCAL COVID-19 PCR: No results for input(s): COVID19 in the last 72 hours. Objective: Vitals: BP 111/85 (BP Location: Left arm, Patient Position: Lying) Pulse 58 Temp 35.9 C (96.7 F) (Temporal) Resp 14 Ht 5' 6" (1.676 m) Wt (!) 344 lb 9.3 oz (156 kg) SpO2 (!) 88% BMI 55.62 kg/m Pulse Ox: SpO2 Av.4 % Min: 88 % Max: 99 % Supplemental O2: O2 Flow Rate (L/min): 2 L/min (decreased 1L) General appearance: No apparent distress, appears stated age and cooperative with exam HEENT: Normal cephalic, atraumatic without obvious deformity. Extra ocular muscles intact. Conjunctivae/corneas clear, no scleral icterus Neck: Full range of motion, trachea midline Respiratory: Normal respiratory effort. Clear to auscultation, bilaterally without Rales/Wheezes/Rhonchi. Cardiovascular: Bradycardic/irregular Abdomen: Soft, non-tender, non-distended with normal bowel sounds. No rebound or guarding. Musculoskeletal: No clubbing, cyanosis or edema bilaterally. Full range of motion without obvious deformities Skin: Skin color, texture, turgor normal. Mild stasis dermatitis of lower ext Medications: apixaban, 5 mg, Oral, BID atorvastatin, 20 mg, Oral, Daily baclofen, 5 mg, Oral, BID ertapenem, 1,000 mg, IntraVENous, q24h [Held by provider] gabapentin, 100 mg, Oral, BID insulin glargine, 10 Units, SubCUTAneous, Nightly insulin lispro, 0-18 Units, SubCUTAneous, 4x daily AC & HS lisinopril, 20 mg, Oral, Daily pantoprazole, 40 mg, Oral, Nightly Or pantoprazole, 40 mg, IntraVENous, Nightly sodium chloride 0.9%, 5-40 mL, IntraVENous, 2 times per day Assessment # Severe sepsis due to E. coli ESBL/bacteremia now off of pressors - continue antibiotics as per ID who is following. # Positive blood cx (staph) on 06/14 - discussed with ID Dr. Fernandez who feels this is contamination. Okay to proceed with tunneled line placement. # Acute on chronic anemia - hemoglobin now stable. Continue to monitor, especially while on apixaban. Transfuse as needed for hgb less than 7. # Left UPJ calculus and hydronephrosis status post cystoscopy and stent placement in the left ureter per Urology. She will need definitive stone management after her infection clears per urology (states they will coordinate this). Urology signed off. # Chronic jose catheter due to neurogenic bladder - per urology, patient to discharge with catheter to straight drain. Will need follow up with Urology outpatient for catheter management and UTI prevention (they will coordinate after she is discharged). # Acute hypoxia - followed by pulmonary. Resolved and weaned off of NC O2 now. Currently on RA # Bradycardia - per RN on 06/14, HR was 30's-40's overnight. This am was in the 50's and has slow A.fib. NOT on any rate controlling meds. Cardiology saw and felt this is due to PHOEBE/vagally mediated and asymptomatic Avoid HR slowing meds. They state No PPM indications and to Treat underlying obesity, PHOEBE/OHVS. Pulmonary and well as myself spoke with patient about this but she continues to refuse bipap. States she cannot handle it. # Type 2 diabetes which is uncontrolled with diabetic neuropathy - on lantus/ISS. # History of paroxysmal atrial fibrillation - was on IV Heparin here but now discontinued and switched to p.o. apixaban # WHITLEY due to ATN - creat improving. Nephrology is following and states Ok for discharge planning from renal standpoint, outpatient BMP ordered and needs close follow up with nephrology in 1 week # Chronic diastolic heart failure - compensated. # Severe morbid obesity with sleep apnea and noncompliant with PAP therapy (refusing) # Thrombocytopenia-improving now off of heparin # HLD - on lipitor # Right lower lobe lung nodule - per pulmonary, repeat CT scan in 3 months outpatient (defer to PCP vs Pulmonary outpatient) # Vascular dementia/Alzheimer's Plan Continue IV antibx as per ID with plan for 14 day course but will need to document bacteremia clearance first per ID. Will need tunneled line per ID. Repeat blood cultures pending but so far negative. Continue Apixaban and monitor H/H here while on this Check daily labs. TCC/ for discharge planning (plan is for return to [facility] once medically ready). Barrier to discharge: awaiting for finalize blood cultures and clearance of bacteremia for placement of tunneled line for penitentiary IV antibx. Addendum: ID has cleared for tunneled line placement and request I place order for IR placement. Total time spent (which include face to face and non face to face encounters) : 43 minutes Toxic drug monitoring/narrow therapeutic index drug monitoring if any: # Drug name : # Route administered : # Method of monitoring : Extended Emergency Contact Information Primary Emergency Contact: Deidra Vang Mobile Relation: Child Secondary Emergency Contact: Jesus Frank Mobile Relation: Spouse Preferred language: [place] 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 No ELISE PARK MD Division of Hospitalist Medicine Inpatient Medical Services/[facility] PAGER: Epic chat [facility] - Infectious Diseases Attending Progress Note Subjective: No acute events- denies N/v/abdominal pain. No cough or SOB. Voiding well per jose, no dysuria ro flank pain. Objective: Vitals: Patient Vitals for the past 24 hrs: BP Temp Temp src Pulse Resp SpO2 06/14/22 0757 (!) 157/71 35.8 C (96.4 F) Temporal 51 20 100 % 06/14/22 0443 (!) 156/89 36.4 C (97.5 F) Temporal 53 16 -- 06/14/22 0007 (!) 178/90 35.8 C (96.5 F) Temporal 54 16 91 % 06/13/22 1940 (!) 146/98 36.2 C (97.2 F) Temporal 61 18 93 % 06/13/22 1705 (!) 166/74 35.9 C (96.6 F) Temporal 59 16 98 % 06/13/22 1243 116/71 35.9 C (96.6 F) Temporal 54 18 97 % Physical Exam Vitals reviewed. Constitutional: General: She is not in acute distress. Appearance: Normal appearance. She is obese. She is not ill-appearing or toxic-appearing. Eyes: Extraocular Movements: Extraocular movements intact. Pulmonary: Effort: Pulmonary effort is normal. Abdominal: General: There is no distension. Palpations: Abdomen is soft. Tenderness: There is no abdominal tenderness. Genitourinary: General: Normal vulva. Comments: Jose-clear UOP Skin: General: Skin is warm. Coloration: Skin is not jaundiced. Findings: No erythema or rash. Neurological: General: No focal deficit present. Psychiatric: Mood and Affect: Mood normal. Thought Content: Thought content normal. Labs: Lab Results Component Value Date/Time NA 143 06/14/2022 0603 K 3.5 06/14/2022 0603 CL 114 (H) 06/14/2022 0603 CO2 27 06/14/2022 0603 BUN 61 (H) 06/14/2022 0603 CREATININE 1.05 (H) 06/14/2022 0603 CREATININE 1.32 (H) 04/14/2021 0254 GLUCOSE 131 (H) 06/14/2022 0603 CALCIUM 7.9 (L) 06/14/2022 0603 PROT 5.2 (L) 06/14/2022 0603 BILITOT 0.7 06/14/2022 0603 ALKPHOS 65 06/14/2022 0603 AST 22 06/14/2022 0603 ALT 10 06/14/2022 0603 PROCAL 76.84 (H) 06/11/2022 0322 PROCAL 17.91 (H) 06/09/2022 1640 PROCAL 0.06 03/08/2021 1558 Lab Results Component Value Date/Time WBC 11.4 (H) 06/14/2022 0603 HGB 8.2 (L) 06/14/2022 0603 HCT 26.0 (L) 06/14/2022 0603 PLT 81 (L) 06/14/2022 0603 GRANULOCYTES 46.9 04/14/2021 0254 LYMPHOPCT 23 06/14/2022 0603 LYMPHOPCT 12.3 (L) 06/13/2022 0600 MONOPCT 1 (L) 06/14/2022 0603 MONOPCT 4.4 06/13/2022 0600 LABEOS 5.3 04/14/2021 0254 BASOPCT 0.2 06/13/2022 0600 NEUTROABS 6.7 06/13/2022 0600 Micro: reviewed 06/14 BC: pending 06/11 BC E coli x1 set 06/09 BC E coli 06/10Urine cx (operative) E coli, anaerobic GPR 06/09 Urine cx: E coli-ESBL Lines: PIV Radiography/Echo/Other: reviewed Antimicrobials, Start/End Dates: Ertapenem to 06/24 planned, may be longer if still bacteremic. Impression: 71F, Severe sepsis with encephalopathy, WHITLEY, lactic acidosis, hypotension(off pressors,), thrombocytopenia-slowly improving Obstructive uropathy with renal calculi s/p C+P with ureteral stenting on 06/10-Cx ESBL E coli, and anaerobic GPR; already on Carbapenem Chronic jose requiring due to h/o neurogenic bladder, and urinary retention, and infections since 2017. ESBL E coli BSI from above, follow up BC from 06/11 still +. Recheck BC today for clearance. Could just have been drawn too soon after stent placement. Plan: Same regimen for now. Will need tunneled line- case d/w Renal Svc(h/o WHITLEY and HD). Final OPAT order to follow. [facility] Progress Note Subjective/ 71 y.o. year old female who we are seeing in consultation for WHITLEY. NAEON Resting in bed Responds "okay" to all questions Appetite fair Denies chest pain/SOB No other new issues at this time ROS done and negative unless mentioned as above No change in PFSH All data labs/interval notes and overnight issues are reviewed Objective/ Vitals: 06/13/22 1940 06/14/22 0007 06/14/22 0443 06/14/22 0757 BP: (!) 146/98 (!) 178/90 (!) 156/89 (!) 157/71 BP Location: Right arm Patient Position: Lying Pulse: 61 54 53 51 Resp: 18 16 16 20 Temp: 36.2 C (97.2 F) 35.8 C (96.5 F) 36.4 C (97.5 F) 35.8 C (96.4 F) TempSrc: Temporal Temporal Temporal Temporal SpO2: 93% 91% 100% Weight: Height: Intake/Output Summary (Last 24 hours) at 06/14/2022 1211 Last data filed at 06/14/2022 0652 Gross per 24 hour Intake 582.58 ml Output 450 ml Net 132.58 ml apixaban, 5 mg, Oral, BID atorvastatin, 20 mg, Oral, Daily baclofen, 5 mg, Oral, BID ertapenem, 1,000 mg, IntraVENous, q24h [Held by provider] gabapentin, 100 mg, Oral, BID insulin glargine, 10 Units, SubCUTAneous, Nightly insulin lispro, 0-18 Units, SubCUTAneous, 4x daily AC & HS lisinopril, 10 mg, Oral, Daily pantoprazole, 40 mg, Oral, Nightly Or pantoprazole, 40 mg, IntraVENous, Nightly sodium chloride 0.9%, 5-40 mL, IntraVENous, 2 times per day PRN medications: dextrose, dextrose, glucagon (rDNA), glucose, ondansetron, sodium chloride, sodium chloride 0.9% Constitutional: Alert, awake, slow to respond, no apparent distress Eyes: No icterus, no pallor HEENT: no pallor/cyanosis or icterus Cardiovascular: S1, S2 without m/r/g Respiratory: CTA B without w/r/r GI: +bs, soft, nt : jose absent Ext: trace BLE edema Neck: supple, no thyroid enlargement, no JVD elevation Skin: warm, moist, no rashes Results from last 7 days Lab Units 06/14/22 0603 06/13/22 0600 06/12/22 0312 SODIUM mmol/L 143 141 142 POTASSIUM mmol/L 3.5 4.1 3.0* CHLORIDE mmol/L 114* 111* 115* CO2 mmol/L 27 27 22 BUN mg/dL 61* 63* 55* CREATININE mg/dL 1.05* 1.41* 1.43* GLUCOSE mg/dL 131* 240* 171* CALCIUM mg/dL 7.9* 7.9* 6.6* Results from last 7 days Lab Units 06/14/22 0603 06/13/22 0600 06/12/22 1219 06/12/22 0312 WBC AUTO 10*3/uL 11.4* 8.1 -- 11.5* HEMOGLOBIN g/dL 8.2* 8.1* 7.8* 6.9* HEMATOCRIT % 26.0* 25.6* 23.6* 21.4* PLATELETS AUTO 10*3/uL 81* 51* -- 46* Assessment 1. WHITLEY/ATN 2/2 severe sepsis and septic shock (resolved) 2. Gram-negative bacteremia 3. Anemia in CKD 4. CKD3b 5. Morbid obesity BMI 46.65 6. Urinary tract infection 7. Acute hypokalemia RECOMMENDATIONS: ATN back to baseline and stable, bl~1.4, non-oliguric, BP generous BP suboptimally improved with restart of lisinopril 10 mg 06/14 Longer term BP goal 130/80. Gave additional 10 mg Lisinopril today and up titrate dose to 20 mg 06/15 Urology recs noted Agree with transfusion for hgb <7 K better Defer management of IVAB to primary team Ok for discharge planning from renal standpoint, outpatient BMP ordered and needs close follow up with nephrology in 1 week We will follow. Patricia Do APRN, MANAGER PRESENTATION [facility], [email or web address] [phone] I have reviewed the above assessment and plan with the HAND I THERMAL CUTTER. I agree with above note. Cr improving. Uptitrated Lisinopril. 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 Images from the original note were not included. [facility] [place], Pulmonary Medicine [address] [place] [id number] Patient - Salazar Coyle, Age - 71 y.o. - 1950 Room Number - [id number]/[id number] A Consulting - lEise Park MD Primary Care Physician - Paige Rivera, DO Date of Admission - 06/09/2022 11:12 AM Hospital Day - 5 Chief Complaint Salazar Coyle is a 71 y.o. female with severe morbid obesity, history of atrial fibrillation on apixaban type 2 diabetes chronic lymphedema admitted to the hospital via emergency from room from an extended care facility for low-grade fever, change in mental status patient also has history of underlying dementia patient previously had been treated for UTI at the nursing facility Patient found to be in septic shock with E. coli bacteremia with multi organ system dysfunction Interval History Patient awake and alert lying in the bed Currently on room air oxygen saturation between 92 to 100% Denies shortness of breath Blood cultures have been positive for E. Coli Repeat blood culture drawn today ID recommendation noted Echocardiogram transthoracic reviewed No vegetation reported Renal function is improving Status post left ureteral stent placement because of calculus and hydronephrosis All other systems reviewed Objective Vitals: BP (!) 157/71 (BP Location: Right arm, Patient Position: Lying) Pulse 51 Temp 35.8 C (96.4 F) (Temporal) Resp 20 Ht 5' 6" (1.676 m) Wt 289 lb (131 kg) SpO2 100% BMI 46.65 kg/m Pulse Ox: SpO2 Av.8 % Min: 91 % Max: 100 % Supplemental O2: O2 Flow Rate (L/min): 2 L/min (decreased 1L) I/O 24HR INTAKE/OUTPUT: Intake/Output Summary (Last 24 hours) at 06/14/2022 1118 Last data filed at 06/14/2022 0652 Gross per 24 hour Intake 582.58 ml Output 450 ml Net 132.58 ml Exam General appearance: Awake, alert, no acute distress. On room air HEENT: Normocephalic, atraumatic. No scleral icterus, no right/left eye discharge. Conjunctivae normal. Pupils equal round and reactive to light. Right external ear normal, Left external ear normal. No congestion. Mouth: mucous membranes moist. Pharynx, Oropharynx is clear. No oropharyngeal exudate. Neck: ROM normal, No thyromegaly. No cervical lymphadenopathy Cardiovascular: Regular rate and irregular rhythm. Heart sounds normal. Negative for murmur, friction rub or gallop. Pulmonary: Effort normal, no respiratory distress. No stridor Fevers or rails no wheezing Abdomen: Soft, no distention, no abdominal tenderness. No guarding. No masses. Musculoskeletal: ROM normal, Negative for swelling, tenderness or deformity. Skin: Warm and dry. Skin is not jaundiced. No rash Extremities: No clubbing, cyanosis, Bilateral nonpitting extremity edema Neurological: No focal deficits. Alert and oriented x person, place and time. Mental status is at baseline. No motor weakness. Psychiatric: Mood, behavior, thought content normal. Cooperative with exam. Medications Current Medications apixaban, 5 mg, Oral, BID atorvastatin, 20 mg, Oral, Daily baclofen, 5 mg, Oral, BID ertapenem, 1,000 mg, IntraVENous, q24h [Held by provider] gabapentin, 100 mg, Oral, BID insulin glargine, 10 Units, SubCUTAneous, Nightly insulin lispro, 0-18 Units, SubCUTAneous, 4x daily AC & HS lisinopril, 10 mg, Oral, Daily pantoprazole, 40 mg, Oral, Nightly Or pantoprazole, 40 mg, IntraVENous, Nightly sodium chloride 0.9%, 5-40 mL, IntraVENous, 2 times per day PRN Mediations PRN medications: dextrose, dextrose, glucagon (rDNA), glucose, ondansetron, sodium chloride, sodium chloride 0.9% IV Drips/Infusions Labs CBC Results from last 7 days Lab Units 06/14/22 0603 WBC AUTO 10*3/uL 11.4* HEMOGLOBIN g/dL 8.2* HEMATOCRIT % 26.0* PLATELETS AUTO 10*3/uL 81* BMP: Results from last 7 days Lab Units 06/14/22 0603 06/13/22 0600 06/12/22 0312 SODIUM mmol/L 143 141 142 POTASSIUM mmol/L 3.5 4.1 3.0* CHLORIDE mmol/L 114* 111* 115* CO2 mmol/L 27 27 22 BUN mg/dL 61* 63* 55* CREATININE mg/dL 1.05* 1.41* 1.43* GLUCOSE mg/dL 131* 240* 171* CALCIUM mg/dL 7.9* 7.9* 6.6* ABG: LIVER PROFILE Results from last 7 days Lab Units 06/14/22 0603 06/13/22 0600 06/12/22 0312 06/09/22 1640 06/09/22 1132 ALK PHOS U/L 65 58 50 < > 120 BILIRUBIN TOTAL mg/dL 0.7 0.8 0.9 < > 1.0 BILIRUBIN DIRECT mg/dL -- -- -- -- 0.0 PROTEIN TOTAL g/dL 5.2* 5.3* 4.6* < > 6.1* ALT U/L 10 11 9 < > 11 AST U/L 22 20 23 < > 24 < > = values in this interval not displayed. INR No lab exists for component: PT PTT No results found for: PTT Cultures E. coli bacteremia Radiology Chest x-ray reviewed increased interstitial prominence Active Hospital Problem List Patient Active Problem List Diagnosis Hypertension Edema Foot ulcer ([facility]) Hyperlipemia Bladder spasm Type 2 diabetes mellitus with hyperglycemia ([facility]) ([facility]) Wounds, multiple Degenerative disc disease, cervical Chronic pain Osteoarthrosis PAF (paroxysmal atrial fibrillation) ([facility]) ([facility]) Cognitive decline Morbid obesity with BMI of 60.0-69.9, adult ([facility]) ([facility]) 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 ([facility]) Recurrent UTI Cerebrovascular accident ([facility]) Hyperglycemia Chronic indwelling Jose catheter CKD (chronic kidney disease) Asymptomatic bacteriuria Anemia Septic shock ([facility]) ([facility]) Assessment and Plan Severe sepsis status post septic shock due to E. coli ESBL/bacteremia, /improving off Levophed continue with antibiotics monitor hemodynamics Left UPJ calculus and hydronephrosis status post cystoscopy/ureteroscopy and stent placement in the left ureter by urology Lactic acidosis normal now Hypoxemia resolving Currently on room air Titrate FiO2 to keep O2 sat 92 percentile Diabetes type 2 with hyperglycemia, improve glycemic control History of paroxysmal A-fib, patient on apixaban currently patient refusing to take pills on IV heparin currently Acute kidney injury on chronic kidney disease stage III/ATN related to above creatinine is gradually improving, bicarb infusion has been discontinued-monitor BMP Heart failure with preserved ejection fraction Follow-up chest imaging Severe morbid obesity history of sleep apnea noncompliant with PAP therapy Patient refusing PAP therapy Right lower lobe lung nodule repeat CAT scan of the chest in 3 months Alzheimer's/vascular dementia refusing to take pills Drop in H&H Status post blood transfusion Follow serial H&H Monitor for any signs of bleeding Advance Directive: Full Code Case discussed with nurse and patient/ Questions and concerns addressed. Images from the original note were not included. Hospitalist Progress Note 06/14/2022 [phone]: Please page me ([phone]) for patient care issues. [phone]: Please page [facility] Hospitalist for any issues. Subjective: Admit Date: 06/09/2022 PCP: Paige Rivera, DO Room#: B4-856/B4-442 A Interval History: No overnight issues. Denies chest pain, sob, abdominal pain, nausea, vomiting, diarrhea, constipation, fevers, or chills. Adult diet Easy to Chew; 4 carb choices (60 gm/meal) @[id number]@ 24HR INTAKE/OUTPUT: Intake/Output Summary (Last 24 hours) at 06/14/2022 0914 Last data filed at 06/14/2022 0652 Gross per 24 hour Intake 587.58 ml Output 450 ml Net 137.58 ml Past Medical History: Past Medical History: Diagnosis Date A-fib (CMS/HCC) ([facility]) Anemia Diabetes (HCC) Lymphedema Obesity LABS: CBC: Recent Labs 06/12/2231106/12/22 1219 06/13/22 0606/14/22 0603 WBC 11.5* -- 8.1 11.4* RBC 2.70* -- 3.15* 3.19* HGB 6.9* 7.8* 8.1* 8.2* HCT 21.4* 23.6* 25.6* 26.0* MCV 79.2* -- 81.2 81.5 RDW 18.0* -- 17.9* 18.1* PLT 46* -- 51* 81* BMP: Recent Labs 06/12/2231106/13/22 0606/14/22 0603 NA 142 141 143 K 3.0* 4.1 3.5 CL 115* 111* 114* CO2 22 27 27 BUN 55* 63* 61* CREATININE 1.43* 1.41* 1.05* GLUCOSE 171* 240* 131* CALCIUM 6.6* 7.9* 7.9* ANIONGAP 5 3 3 LIVER PROFILE: Recent Labs 06/12/2231106/13/22 0606/14/22 0603 AST 23 20 22 ALT 9 11 10 BILITOT 0.9 0.8 0.7 ALKPHOS 50 58 65 PROT 4.6* 5.3* 5.2* PT/INR: No results for input(s): PROTIME, INR in the last 72 hours. CARDIAC ENZYMES: No results for input(s): TROPONINI in the last 72 hours. Procalcitonin: No results found for: PROCAL COVID-19 PCR: No results for input(s): COVID19 in the last 72 hours. Objective: Vitals: BP (!) 157/71 (BP Location: Right arm, Patient Position: Lying) Pulse 51 Temp 35.8 C (96.4 F) (Temporal) Resp 20 Ht 5' 6" (1.676 m) Wt 289 lb (131 kg) SpO2 100% BMI 46.65 kg/m Pulse Ox: SpO2 Av.8 % Min: 91 % Max: 100 % Supplemental O2: O2 Flow Rate (L/min): 2 L/min (decreased 1L) General appearance: No apparent distress, appears stated age and cooperative with exam HEENT: Normal cephalic, atraumatic without obvious deformity. Extra ocular muscles intact. Conjunctivae/corneas clear, no scleral icterus Neck: Full range of motion, trachea midline Respiratory: Normal respiratory effort. Clear to auscultation, bilaterally without Rales/Wheezes/Rhonchi. Cardiovascular: Bradycardic/irregular Abdomen: Soft, non-tender, non-distended with normal bowel sounds. No rebound or guarding. Musculoskeletal: No clubbing, cyanosis or edema bilaterally. Full range of motion without obvious deformities Skin: Skin color, texture, turgor normal. Mild stasis dermatitis of lower ext Medications: apixaban, 5 mg, Oral, BID atorvastatin, 20 mg, Oral, Daily baclofen, 5 mg, Oral, BID ertapenem, 1,000 mg, IntraVENous, q24h [Held by provider] gabapentin, 100 mg, Oral, BID insulin glargine, 10 Units, SubCUTAneous, Nightly insulin lispro, 0-18 Units, SubCUTAneous, 4x daily AC & HS lisinopril, 10 mg, Oral, Daily pantoprazole, 40 mg, Oral, Nightly Or pantoprazole, 40 mg, IntraVENous, Nightly sodium chloride 0.9%, 5-40 mL, IntraVENous, 2 times per day Assessment # Severe sepsis due to E. coli ESBL/bacteremia now off of pressors - continue antibiotics as per ID who is following. # Acute on chronic anemia - hemoglobin now stable. Continue to monitor, especially while on apixaban. Transfuse as needed for hgb less than 7. # Left UPJ calculus and hydronephrosis status post cystoscopy and stent placement in the left ureter per Urology. She will need definitive stone management after her infection clears per urology (states they will coordinate this). Urology signed off. # Chronic jose catheter due to neurogenic bladder - per urology, patient to discharge with catheter to straight drain. Will need follow up with Urology outpatient for catheter management and UTI prevention (they will coordinate after she is discharged). # Acute hypoxia - followed by pulmonary. Resolved and weaned off of NC O2 now. Currently on RA # Bradycardia - per RN on 06/14, HR was 30's-40's overnight. This am was in the 50's and has slow A.fib. NOT on any rate controlling meds. Suspect due to PHOEBE with noncompliancy with PAP therapy?? Consult cardiology to evaluate. # Type 2 diabetes which is uncontrolled with diabetic neuropathy - on lantus/ISS. # History of paroxysmal atrial fibrillation - was on IV Heparin here but now discontinued and switched to p.o. apixaban # WHITLEY due to ATN - creat improving. Nephrology is following and states Ok for discharge planning from renal standpoint, outpatient BMP ordered and needs close follow up with nephrology in 1 week # Chronic diastolic heart failure - compensated. # Severe morbid obesity with sleep apnea and noncompliant with PAP therapy (refusing) # Thrombocytopenia-improving now off of heparin # HLD - on lipitor # Right lower lobe lung nodule - per pulmonary, repeat CT scan in 3 months outpatient (defer to PCP vs Pulmonary outpatient) # Vascular dementia/Alzheimer's Plan Prior notes/records reviewed. Continue IV antibx as per ID with plan for 14 day course but will need to document bacteremia clearance first per ID. Repeat blood cultures pending. Continue Apixaban and monitor H/H here while on this. Consult cardiology to evaluate bradycardia/slow a. Fib. Check daily labs. Change accuchecks to AC/HS. TCC/SW for discharge planning (plan is for return to [facility] once medically ready). Total time spent (which include face to face and non face to face encounters) : 52 minutes Toxic drug monitoring/narrow therapeutic index drug monitoring if any: # Drug name : # Route administered : # Method of monitoring : Extended Emergency Contact Information Primary Emergency Contact: Deidra Vang Mobile Relation: Child Secondary Emergency Contact: Jesus Frank Mobile Relation: Spouse Preferred language: [place] 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 No ELISE PARK MD Division of Hospitalist Medicine Inpatient Medical Services/[facility] PAGER: Epic chat Images from the original note were not included. Hospitalist Progress Note 06/13/2022 Subjective: Admit Date: 06/09/2022 PCP: Paige Rivera, Room#: T6-082/Q8-780 A Interval History: No overnight issues. Adult diet Easy to Chew; 4 carb choices (60 gm/meal) 24HR INTAKE/OUTPUT: Intake/Output Summary (Last 24 hours) at 06/13/2022 1703 Last data filed at 06/13/2022 1017 Gross per 24 hour Intake 5 ml Output -- Net 5 ml Past Medical History: Past Medical History: Diagnosis Date A-fib (CMS/HCC) (HCC) Anemia Diabetes (HCC) Lymphedema Obesity LABS: CBC: Recent Labs 06/11/2232106/12/2231106/12/22 1219 06/13/22 0600 WBC 12.7* 11.5* -- 8.1 RBC 3.30* 2.70* -- 3.15* HGB 8.4* 6.9* 7.8* 8.1* HCT 26.6* 21.4* 23.6* 25.6* MCV 80.5 79.2* -- 81.2 RDW 18.3* 18.0* -- 17.9* PLT 43* 46* -- 51* BMP: Recent Labs 06/11/2232106/12/22 03106/13/22 0600 NA 139 142 141 K 3.6 3.0* 4.1 CL 104 115* 111* CO2 25 22 27 BUN 57* 55* 63* CREATININE 2.29* 1.43* 1.41* GLUCOSE 190* 171* 240* CALCIUM 8.0* 6.6* 7.9* ANIONGAP 9 5 3 LIVER PROFILE: Recent Labs 06/11/2232106/12/22 0312 06/13/22 0600 AST 36 23 20 ALT 11 9 11 BILITOT 1.5* 0.9 0.8 ALKPHOS 80 50 58 PROT 6.2* 4.6* 5.3* PT/INR: No results for input(s): PROTIME, INR in the last 72 hours. CARDIAC ENZYMES: No results for input(s): TROPONINI in the last 72 hours. Procalcitonin: Lab Results Component Value Date PROCAL 76.84 (H) 06/11/2022 COVID-19 PCR: No results for input(s): COVID19 in the last 72 hours. Objective: Vitals: BP 116/71 Pulse 54 Temp 35.9 C (96.6 F) (Temporal) Resp 18 Ht 5' 6" (1.676 m) Wt 289 lb (131 kg) SpO2 97% BMI 46.65 kg/m Pulse Ox: SpO2 Av.4 % Min: 97 % Max: 100 % Supplemental O2: O2 Flow Rate (L/min): 2 L/min (decreased 1L) Physical Exam Constitutional: Appearance: Normal appearance. She is obese. HENT: Head: Normocephalic and atraumatic. Nose: Nose normal. Mouth/Throat: Mouth: Mucous membranes are moist. Pharynx: Oropharynx is clear. No oropharyngeal exudate. Eyes: Extraocular Movements: Extraocular movements intact. Conjunctiva/sclera: Conjunctivae normal. Pupils: Pupils are equal, round, and reactive to light. Cardiovascular: Rate and Rhythm: Normal rate. Rhythm irregular. Heart sounds: Normal heart sounds. No murmur heard. No friction rub. No gallop. Pulmonary: Effort: No respiratory distress. Breath sounds: No wheezing or rhonchi. Comments: Diminshed breath sounds, Abdominal: General: Bowel sounds are normal. There is no distension. Palpations: Abdomen is soft. Tenderness: There is no abdominal tenderness. There is no guarding. Musculoskeletal: General: Swelling present. Right lower leg: Edema present. Left lower leg: Edema present. Comments: Changes of stasis dermatitis Skin: General: Skin is dry. Capillary Refill: Capillary refill takes 2 to 3 seconds. Findings: Bruising and lesion present. No erythema. Neurological: General: No focal deficit present. Mental Status: She is alert. Mental status is at baseline. Cranial Nerves: No cranial nerve deficit. Sensory: No sensory deficit. Motor: Weakness present. Psychiatric: Mood and Affect: Mood normal. Medications: Current Facility-Administered Medications: [Held by provider] apixaban (Eliquis) tablet 5 mg, 5 mg, Oral, BID, Franchesca Mckeon MD atorvastatin (Lipitor) tablet 20 mg, 20 mg, Oral, Daily, Franchesca Mckeon MD, 20 mg at 06/13/22 1014 baclofen (Lioresal) tablet 5 mg, 5 mg, Oral, BID, Franchesca Mckeon MD, 5 mg at 06/13/22 1014 dextrose 5 % infusion, 100 mL/hr, IntraVENous, PRN, Franchesca Mckeon MD dextrose 50 % solution 12.5 g, 12.5 g, IntraVENous, PRN, Franchesca Mckeon MD ertapenem (INVanz) 1,000 mg in sodium chloride 0.9 % 50 mL IVPB Mini-Bag Plus, 1,000 mg, IntraVENous, q24h, Dirk Fernandez MD, 1,000 mg at 06/12/222 [Held by provider] gabapentin (Neurontin) capsule 100 mg, 100 mg, Oral, BID, Franchesca Mckeon MD glucagon (human recombinant) injection 1 mg, 1 mg, IntraMUSCular, PRN, Franchesca Mckeon MD glucose oral gel 15 g, 15 g, Oral, PRN, Franchesca Mckeon MD heparin 25,000 units in dextrose 5% 250mL infusion (premix), 5-30 Units/kg/hr, IntraVENous, Continuous, Franchesca Mckeon MD, Last Rate: 12.6 mL/hr at 06/13/22 0849, 9.6 Units/kg/hr at 06/13/22 0849 heparin injection 2,000 Units, 2,000 Units, IntraVENous, PRN, Franchesca Mckeon MD, 2,000 Units at 06/13/22 0835 heparin injection 4,000 Units, 4,000 Units, IntraVENous, PRN, Franchesca Mckeon MD Hydrocortisone Sod Suc (PF) (Solu-CORTEF) injection 25 mg, 25 mg, IntraVENous, q12h, Russ Ching MD, 25 mg at 06/13/22 1014 insulin glargine (Lantus) injection 10 Units, 10 Units, SubCUTAneous, Nightly, Franchesca Mckeon MD, 10 Units at 06/12/22 2226 Insulin Lispro (Humalog) injection 0-18 Units, 0-18 Units, SubCUTAneous, q6h, Franchesca Mckeon MD, 12 Units at 06/13/22 1234 lisinopril tablet 10 mg, 10 mg, Oral, Daily, Ana Brennan APRN - MANAGER PRESENTATION, 10 mg at 06/13/22 1245 ondansetron (Zofran) injection 4 mg, 4 mg, IntraVENous, q6h PRN, Franchesca Mckeon MD pantoprazole (ProtoNix) EC tablet 40 mg, 40 mg, Oral, Nightly, 40 mg at 06/12/22 2211 OR pantoprazole (ProtoNix) injection 40 mg, 40 mg, IntraVENous, Nightly, Franchesca Mckeon MD, 40 mg at 06/10/22 2142 sodium chloride 0.9 % infusion, 5-250 mL/hr, IntraVENous, PRN, Franchesca Mckeon MD sodium chloride 0.9% (NS) flush 5-40 mL, 5-40 mL, IntraVENous, 2 times per day, Franchesca Mckeon MD, 10 mL at 06/13/22 1017 sodium chloride 0.9% (NS) flush 5-40 mL, 5-40 mL, IntraVENous, PRN, Franchesca Mckeon MD Assessment Data: (CAT1) CBC, BMP, lactate, liver enzymes, UA ordered & reviewed, they show hemoglobin of 8.3 and creatinine of 1.2 (CAT3) Mgmt of the patient was discussed with spring encaser [name], who stated, in summary: Discharge planning to [facility] (LOW: 2x CAT1 or independent historian MOD: 3x CAT1 or 1x CAT3 EXTENSIVE: 3x CAT1 and 1x CAT3) Acute, acute on chronic, unstable/uncontrolled chronic problems/diagnoses: Severe sepsis due to E. coli ESBL/bacteremia now off of pressors-continue ertapenem Acute anemia-hemoglobin today is 8.1 left UPJ calculus and hydronephrosis status post cystoscopy and stent placement in the left ureter Acute hypoxic respiratory failure Type 2 diabetes which is uncontrolled with diabetic neuropathy History of paroxysmal atrial fibrillation for which s-discontinue IV heparin and switch to p.o. apixaban WHITLEY/CKD-nephrology is following, creatinine is much improved Chronic diastolic heart failure Severe morbid obesity with sleep apnea and noncompliant with PAP therapy Thrombocytopenia-improving now off of heparin Stable chronic problems affecting care, new non-acute diagnoses: Right lower lobe lung nodule Vascular dementia/Alzheimer's Plan As a result of the above findings & factors, the following mgmt was pursued: -Today she is agreeable to discontinue IV heparin and start apixaban Continues to b - am labs, replace lytes prn - PT/OT/CM/SW - delirium precautions: increase activity and limit nighttime disturbances - DVT prophylaxis: encourage ambulation and already anticoagulated Complexity: Chronic illness with severe exacerbation, progression, or side effect of tx (HIGH). Risk: Drug therapy requiring intensive monitoring (HIGH). Advance Directive: Full Code Anticipated Discharge - Date - 06/15/22 - Location - Skilled Facility - Pending the following -improvement in anemia, PICC line and clearance by ID and nephrology service Total time spent (which include face to face and non face to face encounters) : greater than 55 minutes Extended Emergency Contact Information Primary Emergency Contact: Deidra Vang Mobile Relation: Child Secondary Emergency Contact: Jesus Frank Mobile Relation: Spouse Preferred language: [place] 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 No Blanca Henderson MD Division of Hospitalist Medicine Inpatient Medical Services/[facility] [place] [facility] Progress Note Subjective/ 71 y.o. year old female who we are seeing in consultation for WHITLEY. NAEON Resting in bed Appetite fair Denies chest pain/SOB No other new issues at this time ROS done and negative unless mentioned as above No change in PFSH All data labs/interval notes and overnight issues are reviewed Objective/ Vitals: 06/12/22 2343 06/13/22 0352 06/13/22 0813 06/13/22 1243 BP: (!) 161/78 (!) 146/73 (!) 170/70 116/71 BP Location: Patient Position: Pulse: 60 60 50 54 Resp: 20 18 16 18 Temp: 35.9 C (96.6 F) 36.1 C (97 F) 36.3 C (97.3 F) 35.9 C (96.6 F) TempSrc: Temporal Temporal Temporal Temporal SpO2: 100% 97% 100% 97% Weight: Height: Intake/Output Summary (Last 24 hours) at 06/13/2022 1310 Last data filed at 06/13/2022 1017 Gross per 24 hour Intake 5 ml Output -- Net 5 ml [Held by provider] apixaban, 5 mg, Oral, BID atorvastatin, 20 mg, Oral, Daily baclofen, 5 mg, Oral, BID ertapenem, 1,000 mg, IntraVENous, q24h [Held by provider] gabapentin, 100 mg, Oral, BID Hydrocortisone Sod Suc (PF), 25 mg, IntraVENous, q12h insulin glargine, 10 Units, SubCUTAneous, Nightly insulin lispro, 0-18 Units, SubCUTAneous, q6h lisinopril, 10 mg, Oral, Daily pantoprazole, 40 mg, Oral, Nightly Or pantoprazole, 40 mg, IntraVENous, Nightly sodium chloride 0.9%, 5-40 mL, IntraVENous, 2 times per day heparin, 5-30 Units/kg/hr, Last Rate: 9.6 Units/kg/hr (06/13/22 0849) PRN medications: dextrose, dextrose, glucagon (rDNA), glucose, heparin, heparin, ondansetron, sodium chloride, sodium chloride 0.9% Constitutional: Alert, awake, slow to respond, no apparent distress Eyes: No icterus, no pallor HEENT: no pallor/cyanosis or icterus Cardiovascular: S1, S2 without m/r/g Respiratory: CTA B without w/r/r GI: +bs, soft, nt : jose absent Ext: trace BLE edema Neck: supple, no thyroid enlargement, no JVD elevation Skin: warm, moist, no rashes Results from last 7 days Lab Units 06/13/22 0600 06/12/22 0312 06/11/22 0322 SODIUM mmol/L 141 142 139 POTASSIUM mmol/L 4.1 3.0* 3.6 CHLORIDE mmol/L 111* 115* 104 CO2 mmol/L 27 22 25 BUN mg/dL 63* 55* 57* CREATININE mg/dL 1.41* 1.43* 2.29* GLUCOSE mg/dL 240* 171* 190* CALCIUM mg/dL 7.9* 6.6* 8.0* Results from last 7 days Lab Units 06/13/22 0600 06/12/22 1219 06/12/22 0312 06/11/22 0322 WBC AUTO 10*3/uL 8.1 -- 11.5* 12.7* HEMOGLOBIN g/dL 8.1* 7.8* 6.9* 8.4* HEMATOCRIT % 25.6* 23.6* 21.4* 26.6* PLATELETS AUTO 10*3/uL 51* -- 46* 43* Assessment 1. Acute kidney injury suspect acute tubular necrosis from severe sepsis and septic shock 2. Gram-negative bacteremia 3. Anemia 4. Acute hypokalemia 5. Morbid obesity 6. Urinary tract infection 7. CKD3b RECOMMENDATIONS: ATN resolved, bl~1.4, non-oliguric, BP noted higher today Will resume lisinopril since scr is back to baseline levels and WHITLEY is resolved Urology recs noted Agree with transfusion for hgb <7 K better Defer management of IVAB to primary team Ok for discharge planning from renal standpoint, outpatient BMP ordered and needs close follow up with nephrology in 1 week We will follow. Thank you for the consult and the opportunity to participate in the care of this patient. Please do not hesitate to contact us with any questions or concerns. Ana Brennan APRN, MANAGER PRESENTATION [facility], [facility] [phone] I have reviewed the above assessment and plan with the HAND I THERMAL CUTTER. I agree with above note. Cr at [place]. [facility] - Infectious Diseases Attending Progress Note Subjective: ID following for ESBL E coli complicated UTI with bacteremia- no acute events, afebrile, and denies N/V/abdominal or flank pain. Good UOP per jose. Feels better today. Objective: Vitals: Patient Vitals for the past 24 hrs: BP Temp Temp src Pulse Resp SpO2 06/13/22 0813 (!) 170/70 36.3 C (97.3 F) Temporal 50 16 100 % 06/13/22 0352 (!) 146/73 36.1 C (97 F) Temporal 60 18 97 % 06/12/22 2343 (!) 161/78 35.9 C (96.6 F) Temporal 60 20 100 % 06/12/22 1951 (!) 153/63 35.9 C (96.6 F) Temporal 58 20 98 % 06/12/22 1205 (!) 152/56 -- -- 56 18 95 % Physical Exam Vitals reviewed. Constitutional: General: She is not in acute distress. Appearance: She is obese. She is not ill-appearing. Eyes: Extraocular Movements: Extraocular movements intact. Pupils: Pupils are equal, round, and reactive to light. Cardiovascular: Pulses: Normal pulses. Pulmonary: Effort: Pulmonary effort is normal. Abdominal: General: There is no distension. Palpations: Abdomen is soft. Tenderness: There is no abdominal tenderness. There is no right CVA tenderness or left CVA tenderness. Skin: General: Skin is warm. Findings: No erythema or rash. Neurological: General: No focal deficit present. Mental Status: She is alert. Psychiatric: Mood and Affect: Mood normal. Thought Content: Thought content normal. Labs: Lab Results Component Value Date/Time NA 141 06/13/2022 0600 K 4.1 06/13/2022 0600 CL 111 (H) 06/13/2022 0600 CO2 27 06/13/2022 0600 BUN 63 (H) 06/13/2022 06 CREATININE 1.41 (H) 06/13/2022 06 CREATININE 1.32 (H) 04/14/2021 0254 GLUCOSE 240 (H) 06/13/2022 06 CALCIUM 7.9 (L) 06/13/2022 0600 PROT 5.3 (L) 06/13/2022 06 BILITOT 0.8 06/13/2022 0600 ALKPHOS 58 06/13/2022 0600 AST 20 06/13/2022 0600 ALT 11 06/13/2022 0600 PROCAL 76.84 (H) 06/11/2022 0322 PROCAL 17.91 (H) 06/09/2022 1640 PROCAL 0.06 03/08/2021 1558 Lab Results Component Value Date/Time WBC 8.1 06/13/2022 0600 HGB 8.1 (L) 06/13/2022 0600 HCT 25.6 (L) 06/13/2022 0600 PLT 51 (L) 06/13/2022 0600 GRANULOCYTES 46.9 04/14/2021 0254 LYMPHOPCT 12.3 (L) 06/13/2022 06 MONOPCT 4.4 06/13/2022 06 LABEOS 5.3 04/14/2021 0254 BASOPCT 0.2 06/13/2022 0600 NEUTROABS 6.7 06/13/2022 0600 Micro: 06/10 Urine cx: E coli ( also GPR, GPC in clusters on stain) 3/10 Urine cx: ESBL E coli, anaerobic GPR 06/09 BC: E coli 06/11 BC: 1 set E coli Lines: PIV Radiography/Echo/Other: reviewed Antimicrobials, Start/End Dates: Meropenem to Ertapenem Impression: 71F, Severe sepsis with encephalopathy, WHITLEY, lactic acidosis, hypotension(off pressors,), thrombocytopenia-slowly improving Obstructive uropathy with renal calculi s/p C+P with ureteral stenting on 06/10-Cx ESBL E coli, and anaerobic GPR; already on Carbapenem Chronic jose requiring due to h/o neurogenic bladder, and urinary retention, and infections since 2017. ESBL E coli BSI from above, follow up bC form 06/11 still +. Recheck BC in AM for clearance. Could just have been drawn too soon after stent placement. Plan: Same antibiotic for now, at least 14 d course anticipated, but also need to document clearance of bacteremia first. Images from the original note were not included. [facility] [place] [address] [place] [address] Patient - Salazar Coyle, Age - 71 y.o. - 1950 Room Number - B4-465/[id number] A Consulting - Blanca Henderson MD Primary Care Physician - Paige Rivera DO Date of Admission - 06/09/2022 11:12 AM Hospital Day - 4 Chief Complaint Salazar Coyle is a 71 y.o. female with severe morbid obesity, history of atrial fibrillation on apixaban type 2 diabetes chronic lymphedema admitted to the hospital via emergency from room from an extended care facility for low-grade fever, change in mental status patient also has history of underlying dementia patient previously had been treated for UTI at the nursing facility Patient found to be in septic shock with E. coli bacteremia with multi organ system dysfunction Interval History Patient resting comfortably in the bed currently on 1 L nasal cannula oxygen saturating up to 100% She denies any chest pain nausea vomiting abdominal pain blurred vision She is afebrile Remains on heparin drip Patient declined Pap therapy Renal function is improving Status post left ureteral stent placement because of calculus and hydronephrosis All other systems reviewed Objective Vitals: BP (!) 170/70 Pulse 50 Temp 36.3 C (97.3 F) (Temporal) Resp 16 Ht 5' 6" (1.676 m) Wt 289 lb (131 kg) SpO2 100% BMI 46.65 kg/m Pulse Ox: SpO2 Av % Min: 95 % Max: 100 % Supplemental O2: O2 Flow Rate (L/min): 2 L/min (decreased 1L) I/O 24HR INTAKE/OUTPUT: No intake or output data in the 24 hours ending 06/13/22 09 Exam General appearance: Awake, alert, no acute distress. On 3 L liters NC. HEENT: Normocephalic, atraumatic. No scleral icterus, no right/left eye discharge. Conjunctivae normal. Pupils equal round and reactive to light. Right external ear normal, Left external ear normal. No congestion. Mouth: mucous membranes moist. Pharynx, Oropharynx is clear. No oropharyngeal exudate. Neck: ROM normal, No thyromegaly. No cervical lymphadenopathy Cardiovascular: Regular rate and irregular rhythm. Heart sounds normal. Negative for murmur, friction rub or gallop. Pulmonary: Effort normal, no respiratory distress. No stridor Fevers or rails no wheezing Abdomen: Soft, no distention, no abdominal tenderness. No guarding. No masses. Musculoskeletal: ROM normal, Negative for swelling, tenderness or deformity. Skin: Warm and dry. Skin is not jaundiced. No rash Extremities: No clubbing, cyanosis, Bilateral nonpitting extremity edema Neurological: No focal deficits. Alert and oriented x person, place and time. Mental status is at baseline. No motor weakness. Psychiatric: Mood, behavior, thought content normal. Cooperative with exam. Medications Current Medications [Held by provider] apixaban, 5 mg, Oral, BID atorvastatin, 20 mg, Oral, Daily baclofen, 5 mg, Oral, BID ertapenem, 1,000 mg, IntraVENous, q24h [Held by provider] gabapentin, 100 mg, Oral, BID Hydrocortisone Sod Suc (PF), 25 mg, IntraVENous, q12h insulin glargine, 10 Units, SubCUTAneous, Nightly insulin lispro, 0-18 Units, SubCUTAneous, q6h pantoprazole, 40 mg, Oral, Nightly Or pantoprazole, 40 mg, IntraVENous, Nightly sodium chloride 0.9%, 5-40 mL, IntraVENous, 2 times per day PRN Mediations PRN medications: dextrose, dextrose, glucagon (rDNA), glucose, heparin, heparin, ondansetron, sodium chloride, sodium chloride 0.9% IV Drips/Infusions heparin, 5-30 Units/kg/hr, Last Rate: 9.6 Units/kg/hr (06/13/22 0849) Labs CBC Results from last 7 days Lab Units 06/13/22 0600 WBC AUTO 10*3/uL 8.1 HEMOGLOBIN g/dL 8.1* HEMATOCRIT % 25.6* PLATELETS AUTO 10*3/uL 51* BMP: Results from last 7 days Lab Units 06/13/22 0600 06/12/22 0312 06/11/22 0322 SODIUM mmol/L 141 142 139 POTASSIUM mmol/L 4.1 3.0* 3.6 CHLORIDE mmol/L 111* 115* 104 CO2 mmol/L 27 22 25 BUN mg/dL 63* 55* 57* CREATININE mg/dL 1.41* 1.43* 2.29* GLUCOSE mg/dL 240* 171* 190* CALCIUM mg/dL 7.9* 6.6* 8.0* ABG: LIVER PROFILE Results from last 7 days Lab Units 06/13/22 0600 06/12/22 0312 06/11/22 0322 06/09/22 1640 06/09/22 1132 ALK PHOS U/L 58 50 80 < > 120 BILIRUBIN TOTAL mg/dL 0.8 0.9 1.5* < > 1.0 BILIRUBIN DIRECT mg/dL -- -- -- -- 0.0 PROTEIN TOTAL g/dL 5.3* 4.6* 6.2* < > 6.1* ALT U/L 11 9 11 < > 11 AST U/L 20 23 36 < > 24 < > = values in this interval not displayed. INR No lab exists for component: PT PTT No results found for: PTT Cultures E. coli bacteremia Radiology Chest x-ray reviewed increased interstitial prominence Active Hospital Problem List Patient Active Problem List Diagnosis Hypertension Edema Foot ulcer (HCC) Hyperlipemia Bladder spasm Type 2 diabetes mellitus with hyperglycemia (CMS/HCC) (HCC) Wounds, multiple Degenerative disc disease, cervical Chronic pain Osteoarthrosis PAF (paroxysmal atrial fibrillation) (CMS/HCC) (HCC) Cognitive decline Morbid obesity with BMI of 60.0-69.9, adult ([facility]) ([facility]) 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 ([facility]) Recurrent UTI Cerebrovascular accident ([facility]) Hyperglycemia Chronic indwelling Jose catheter CKD (chronic kidney disease) Asymptomatic bacteriuria Anemia Septic shock ([facility]) ([facility]) Assessment and Plan Severe sepsis status post septic shock due to E. coli ESBL/bacteremia, /improving off Levophed continue with antibiotics monitor hemodynamics Left UPJ calculus and hydronephrosis status post cystoscopy/ureteroscopy and stent placement in the left ureter by urology Lactic acidosis normal now Hypoxemia resolving Currently on 1 L Titrate FiO2 to keep O2 sat 92 percentile Diabetes type 2 with hyperglycemia, improve glycemic control History of paroxysmal A-fib, patient on apixaban currently patient refusing to take pills on IV heparin currently Acute kidney injury on chronic kidney disease stage III/ATN related to above creatinine is gradually improving, bicarb infusion has been discontinued-monitor BMP Heart failure with preserved ejection fraction Follow-up chest imaging Severe morbid obesity history of sleep apnea noncompliant with PAP therapy Patient refusing PAP therapy Right lower lobe lung nodule repeat CAT scan of the chest in 3 months Alzheimer's/vascular dementia refusing to take pills Drop in H&H Status post blood transfusion Follow serial H&H Monitor for any signs of bleeding Advance Directive: Full Code Case discussed with nurse and patient/ Questions and concerns addressed. [facility] Respiratory Care Department Progress Note Comment or reasoning for refusal: Patient was seen in attempts to fulfill CPAP/BiPAP/AutoPAP order. Patient refused PAP therapy/study at this time. Patient was educated on medical need and reasoning for physician order to ensure patient was making an informed medical decision. All of the patient's questions were answered at this time and patient was informed that if the patient changes their mind regarding wearing PAP to hit their "call light" or inform their nurse to contact Respiratory. A second, consecutive night of refusing PAP therapy/study results in order completion in the EMR. If future CPAP/BiPAP/AutoPAP therapy or study is indicated please place another order in the EMR and the assigned Respiratory Therapist will reattempt to fulfill orders. Thank you for involving Respiratory in the care of this patient, Images from the original note were not included. Hospitalist Progress Note 06/13/2022 Subjective: Admit Date: 06/09/2022 PCP: Paige Rivera, Room#: B4-465/B4-465 A Interval History: No overnight issues. Transferred from ICU , to medical service . Admittedto ICU with urosepsis and septic shock and WHITLEY/ CKD. Found to have Ecoli bacteremiawith hypotension, was put on p[pressors. Urology saw her for a UPJ stone, s/p cystoscopy and stent placement . Also has a history of vascular dementia. She was started on IV antibiotics and infectious disease was also consulted. Also has a history of neurogenic bladder with chronic Jose. Plan is to give her ertapenem for at least 14-day course till 06/24. She still has the Jose catheter Adult diet Easy to Chew; 4 carb choices (60 gm/meal) 24HR INTAKE/OUTPUT: Intake/Output Summary (Last 24 hours) at 06/13/2022 0041 Last data filed at 06/12/2022 0846 Gross per 24 hour Intake 345.83 ml Output 600 ml Net -254.17 ml Past Medical History: Past Medical History: Diagnosis Date A-fib (CMS/HCC) (HCC) Anemia Diabetes (HCC) Lymphedema Obesity LABS: CBC: Recent Labs 06/10/22 0321 06/11/22 0322 06/12/22 0312 06/12/22 1219 WBC 11.4* 12.7* 11.5* -- RBC 3.50* 3.30* 2.70* -- HGB 8.8* 8.4* 6.9* 7.8* HCT 28.7* 26.6* 21.4* 23.6* MCV 81.9 80.5 79.2* -- RDW 18.3* 18.3* 18.0* -- PLT 67* 43* 46* -- BMP: Recent Labs 06/10/22220206/11/2232106/12/22311 NA 140 139 142 K 3.9 3.6 3.0* CL 107 104 115* CO2 24 25 22 BUN 57* 57* 55* CREATININE 2.40* 2.29* 1.43* GLUCOSE 216* 190* 171* CALCIUM 8.0* 8.0* 6.6* ANIONGAP 9 9 5 LIVER PROFILE: Recent Labs 06/10/22220206/11/2232106/12/22311 AST 35 36 23 ALT 12 11 9 BILITOT 1.6* 1.5* 0.9 ALKPHOS 77 80 50 PROT 6.0* 6.2* 4.6* PT/INR: No results for input(s): PROTIME, INR in the last 72 hours. CARDIAC ENZYMES: No results for input(s): TROPONINI in the last 72 hours. Procalcitonin: Lab Results Component Value Date PROCAL 76.84 (H) 06/11/2022 COVID-19 PCR: No results for input(s): COVID19 in the last 72 hours. Objective: Vitals: BP (!) 161/78 Pulse 60 Temp 35.9 C (96.6 F) (Temporal) Resp 20 Ht 5' 6" (1.676 m) Wt 289 lb (131 kg) SpO2 100% BMI 46.65 kg/m Pulse Ox: SpO2 Av.2 % Min: 95 % Max: 100 % Supplemental O2: O2 Flow Rate (L/min): 2 L/min Physical Exam Constitutional: Appearance: Normal appearance. She is obese. HENT: Head: Normocephalic and atraumatic. Mouth/Throat: Mouth: Mucous membranes are dry. Pharynx: No oropharyngeal exudate. Eyes: Extraocular Movements: Extraocular movements intact. Conjunctiva/sclera: Conjunctivae normal. Pupils: Pupils are equal, round, and reactive to light. Cardiovascular: Rate and Rhythm: Regular rhythm. Tachycardia present. Heart sounds: No murmur heard. No friction rub. No gallop. Comments: Distant heart sounds Pulmonary: Effort: Respiratory distress present. Breath sounds: Wheezing and rhonchi present. Comments: SOB, has dysnea , diminished breath sounds Abdominal: General: There is distension. Palpations: Abdomen is soft. Tenderness: There is no abdominal tenderness. There is no guarding or rebound. Musculoskeletal: General: Swelling present. No tenderness. Right lower leg: Edema present. Left lower leg: Edema present. Skin: General: Skin is dry. Findings: Rash present. Comments: Changes of stasis dermatitis Neurological: General: No focal deficit present. Mental Status: She is alert and oriented to person, place, and time. Cranial Nerves: No cranial nerve deficit. Motor: No weakness. Psychiatric: Mood and Affect: Mood normal. Behavior: Behavior normal. Medications: Current Facility-Administered Medications: [Held by provider] apixaban (Eliquis) tablet 5 mg, 5 mg, Oral, BID, Franchesca Mckeon MD atorvastatin (Lipitor) tablet 20 mg, 20 mg, Oral, Daily, Franchesca Mckeon MD, 20 mg at 06/12/22 1039 baclofen (Lioresal) tablet 5 mg, 5 mg, Oral, BID, Franchesca Mckeon MD, 5 mg at 06/12/222211 dextrose 5 % infusion, 100 mL/hr, IntraVENous, PRN, Franchesca Mckeon MD dextrose 50 % solution 12.5 g, 12.5 g, IntraVENous, PRN, Franchesca Mckeon MD ertapenem (INVanz) 1,000 mg in sodium chloride 0.9 % 50 mL IVPB Mini-Bag Plus, 1,000 mg, IntraVENous, q24h, Dirk Fernandez MD, 1,000 mg at 06/12/222211 [Held by provider] gabapentin (Neurontin) capsule 100 mg, 100 mg, Oral, BID, Franchesca Mckeon MD glucagon (human recombinant) injection 1 mg, 1 mg, IntraMUSCular, PRN, Franchesca Mckeon MD glucose oral gel 15 g, 15 g, Oral, PRN, Franchesca Mckeon MD heparin 25,000 units in dextrose 5% 250mL infusion (premix), 5-30 Units/kg/hr, IntraVENous, Continuous, Franchesca Mckeon MD, Last Rate: 11.3 mL/hr at 06/12/222247, 8.6 Units/kg/hr at 06/12/222247 heparin injection 2,000 Units, 2,000 Units, IntraVENous, PRN, Franchesca Mckeon MD heparin injection 4,000 Units, 4,000 Units, IntraVENous, PRN, Franchesca Mckeon MD Hydrocortisone Sod Suc (PF) (Solu-CORTEF) injection 25 mg, 25 mg, IntraVENous, q12h, Russ Ching MD, 25 mg at 06/12/22 2247 insulin glargine (Lantus) injection 10 Units, 10 Units, SubCUTAneous, Nightly, Franchesca Mckeon MD, 10 Units at 06/12/22 2226 Insulin Lispro (Humalog) injection 0-18 Units, 0-18 Units, SubCUTAneous, q6h, Franchesca Mckeon MD, 9 Units at 06/12/22 2231 ondansetron (Zofran) injection 4 mg, 4 mg, IntraVENous, q6h PRN, Franchesca Mckeon MD pantoprazole (ProtoNix) EC tablet 40 mg, 40 mg, Oral, Nightly, 40 mg at 06/12/22 2211 OR pantoprazole (ProtoNix) injection 40 mg, 40 mg, IntraVENous, Nightly, Franchesca Mckeon MD, 40 mg at 06/10/22 2142 sodium chloride 0.9 % infusion, 5-250 mL/hr, IntraVENous, PRN, Franchesca Mckeon MD sodium chloride 0.9% (NS) flush 5-40 mL, 5-40 mL, IntraVENous, 2 times per day, Franchesca Mckeon MD, 20 mL at 06/12/22 2213 sodium chloride 0.9% (NS) flush 5-40 mL, 5-40 mL, IntraVENous, PRN, Franchesca Mckeon MD Assessment Data: (CAT1) CBC, BMP, lactate, liver enzymes, UA ordered & reviewed, they show hemoglobin of 7.3 (CAT1) Reviewed prior external notes from ICU notes unique sources (each=1). (LOW: 2x CAT1 or independent historian MOD: 3x CAT1 or 1x CAT3 EXTENSIVE: 3x CAT1 and 1x CAT3) Acute, acute on chronic, unstable/uncontrolled chronic problems/diagnoses: Severe sepsis due to E. coli ESBL/bacteremia now off of pressors Acute anemia-monitor hemoglobin, already received blood transfusion Left UPJ calculus and hydronephrosis status post cystoscopy and stent placement in the left ureter Acute hypoxic respiratory failure Type 2 diabetes which is uncontrolled with diabetic neuropathy History of paroxysmal atrial fibrillation for which she is on apixaban and she was refusing to take medications so she is on IV heparin drip WHITLEY/CKD-nephrology is following Chronic diastolic heart failure Severe morbid obesity with sleep apnea and noncompliant with PAP therapy Stable chronic problems affecting care, new non-acute diagnoses: Right lower lobe lung nodule Vascular dementia/Alzheimer's Plan As a result of the above findings & factors, the following mgmt was pursued: -She is off of pressors now, ID/nephrology and urology are following. Plan for ertapenem till June 24, might require PICC line catheter Obesity hypoventilation syndrome and noncompliance with PAP therapy Continue on IV heparin drip for now, will discuss switching over to apixaban - am labs, replace lytes prn - PT/OT/CM/SW - delirium precautions: increase activity and limit nighttime disturbances - DVT prophylaxis: heparin and encourage ambulation Complexity: Acute or chronic illness posing a threat to life (HIGH). Risk: Drug therapy requiring intensive monitoring (HIGH). 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 No Blanca Henderson MD Division of Hospitalist Medicine Inpatient Medical Services/[facility] [place] [facility] - Infectious Diseases Attending Progress Note Subjective: Assuming ID coverage- No acute events, more alert per next of kin at bedside. Denies N/v, abdominal or flank pain. Good UOP per jose. Objective: Vitals: Patient Vitals for the past 24 hrs: BP Temp Temp src Pulse Resp SpO2 06/12/22 1205 (!) 152/56 -- -- 56 18 95 % 06/12/22 0846 134/53 36.7 C (98.1 F) Oral -- -- -- 06/12/22 0805 135/55 -- -- 56 16 97 % 06/12/22 0705 -- -- -- 54 -- -- 06/12/22 0633 (!) 148/47 36.7 C (98.1 F) Oral 59 20 -- 06/12/22 0617 (!) 134/48 36.6 C (97.9 F) Oral 58 17 97 % 06/12/22 0307 121/78 36.6 C (97.8 F) Oral 63 18 96 % 06/11/22 2253 106/62 36.5 C (97.7 F) Oral 85 19 94 % 06/11/22 2147 120/55 -- -- 84 (!) 32 91 % 06/11/22 1903 (!) 93/35 -- -- 79 18 95 % 06/11/22 1900 -- 36.6 C (97.8 F) Oral -- -- -- 06/11/22 1703 (!) 116/46 -- -- 63 20 94 % 06/11/22 1603 -- 36.6 C (97.8 F) Oral 77 20 97 % Physical Exam Vitals reviewed. Constitutional: General: She is not in acute distress. Appearance: She is obese. She is not ill-appearing. Pulmonary: Effort: Pulmonary effort is normal. Abdominal: General: There is no distension. Palpations: Abdomen is soft. Tenderness: There is no abdominal tenderness. Genitourinary: General: Normal vulva. Comments: Jose-clear UOP Skin: Coloration: Skin is not jaundiced. Findings: No erythema or rash. Neurological: General: No focal deficit present. Mental Status: She is alert. Psychiatric: Mood and Affect: Mood normal. Thought Content: Thought content normal. Labs: Lab Results Component Value Date/Time NA 142 06/12/2022311 K 3.0 (L) 06/12/2022311 CL 115 (H) 06/12/2022311 CO2 22 06/12/2022311 BUN 55 (H) 06/12/2022311 CREATININE 1.43 (H) 06/12/2022 031 CREATININE 1.32 (H) 04/14/2021 025 GLUCOSE 171 (H) 06/12/2022311 CALCIUM 6.6 (L) 06/12/2022 031 PROT 4.6 (L) 06/12/2022311 BILITOT 0.9 06/12/2022311 ALKPHOS 50 06/12/2022311 AST 23 06/12/2022311 ALT 9 06/12/2022311 PROCAL 76.84 (H) 06/11/2022 032 PROCAL 17.91 (H) 06/09/2022 1640 PROCAL 0.06 03/08/2021 1558 Lab Results Component Value Date/Time WBC 11.5 (H) 06/12/2022311 HGB 7.8 (L) 06/12/2022 1219 HCT 23.6 (L) 06/12/2022 1219 PLT 46 (L) 06/12/2022311 GRANULOCYTES 46.9 04/14/20214 LYMPHOPCT 6.5 (L) 06/12/2022311 MONOPCT 4.2 06/12/2022311 LABEOS 5.3 04/14/20214 BASOPCT 0.1 06/12/2022311 NEUTROABS 10.2 (H) 06/12/2022311 Micro: 06/10 Urine cx: E coli ( also GPR, GPC in clusters on stain) 06/09 Urine cx: ESBL E coli 06/09 BC: E coli 06/12 BC: ordered Lines: PIV Radiography/Echo/Other: Reviewed CTAP Antimicrobials, Start/End Dates: Meropenem Impression: 71F, Severe sepsis with encephalopathy, WHITLEY, lactic acidosis, hypotension(off pressors,), thrombocytopenia-slowly improving Obstructive uropathy with renal calculi s/p C+P with ureteral stenting on 06/10-Cx ESBL E coli, already on Meropenem Chronic jose requiring due to h/o neurogenic bladder, and urinary retention, and infections since 2017. ESBL E coli BSI from above Plan: De-escalate to Ertapenem and plan at least 14 d course to 06/24. May need tunneled PICC given h/o CKD. More that 51% total time 50 Minutes counseling (or coordinating care) and providing discussion regarding complicated UTI, nephrolithiasis. Based on diagnoses and management, combination of acute and chronic problems, exacerbations and/or acuity, this visit should be considered to be of high complexity. Images from the original note were not included. [facility] [place] [address] [place] [id number] Patient - Salazar Coyle, Age - 71 y.o. - 1950 Room Number - B4-465/B4-465 A Consulting - Blanca Henderson MD Primary Care Physician - Paige Rivera, Date of Admission - 06/09/2022 11:12 AM Hospital Day - 3 Chief Complaint Salazar Coyle is a 71 y.o. female with severe morbid obesity, history of atrial fibrillation on apixaban type 2 diabetes chronic lymphedema admitted to the hospital via emergency from room from an extended care facility for low-grade fever, change in mental status patient also has history of underlying dementia patient previously had been treated for UTI at the nursing facility Patient found to be in septic shock with E. coli bacteremia with multi organ system dysfunction Interval History Patient currently resting on the bed she had 3 L nasal cannula on oxygen saturation 93 percentile Patient apparently refused BiPAP Patient denies any chest pain nausea vomiting does have some flank pain No fever no chills no rigor patient dropped her hemoglobin to 6.9 going to have blood transfusion Patient platelet count is also low 46,000 Renal function is improving Nephrology follow-up noted recommended to discontinue the IV fluid Status post left ureteral stent placement because of calculus and hydronephrosis All other systems reviewed Objective Vitals: BP (!) 152/56 Pulse 56 Temp 36.7 C (98.1 F) (Oral) Resp 18 Ht 5' 6" (1.676 m) Wt 289 lb (131 kg) SpO2 95% BMI 46.65 kg/m Pulse Ox: SpO2 Av.2 % Min: 91 % Max: 97 % Supplemental O2: O2 Flow Rate (L/min): 3 L/min I/O 24HR INTAKE/OUTPUT: Intake/Output Summary (Last 24 hours) at 06/12/2022 1502 Last data filed at 06/12/2022 0846 Gross per 24 hour Intake 345.83 ml Output 600 ml Net -254.17 ml Exam General appearance: Awake, alert, no acute distress. On 3 L liters NC. HEENT: Normocephalic, atraumatic. No scleral icterus, no right/left eye discharge. Conjunctivae normal. Pupils equal round and reactive to light. Right external ear normal, Left external ear normal. No congestion. Mouth: mucous membranes moist. Pharynx, Oropharynx is clear. No oropharyngeal exudate. Neck: ROM normal, No thyromegaly. No cervical lymphadenopathy Cardiovascular: Regular rate and irregular rhythm. Heart sounds normal. Negative for murmur, friction rub or gallop. Pulmonary: Effort normal, no respiratory distress. No stridor Fevers or rails no wheezing Abdomen: Soft, no distention, no abdominal tenderness. No guarding. No masses. Musculoskeletal: ROM normal, Negative for swelling, tenderness or deformity. Skin: Warm and dry. Skin is not jaundiced. No rash Extremities: No clubbing, cyanosis, Bilateral nonpitting extremity edema Neurological: No focal deficits. Alert and oriented x person, place and time. Mental status is at baseline. No motor weakness. Psychiatric: Mood, behavior, thought content normal. Cooperative with exam. Medications Current Medications [Held by provider] apixaban, 5 mg, Oral, BID atorvastatin, 20 mg, Oral, Daily baclofen, 5 mg, Oral, BID [Held by provider] gabapentin, 100 mg, Oral, BID Hydrocortisone Sod Suc (PF), 50 mg, IntraVENous, q8h insulin glargine, 10 Units, SubCUTAneous, Nightly insulin lispro, 0-18 Units, SubCUTAneous, q6h meropenem, 1,000 mg, IntraVENous, q12h pantoprazole, 40 mg, Oral, Nightly Or pantoprazole, 40 mg, IntraVENous, Nightly sodium chloride 0.9%, 5-40 mL, IntraVENous, 2 times per day PRN Mediations PRN medications: dextrose, dextrose, glucagon (rDNA), glucose, heparin, heparin, ondansetron, sodium chloride, sodium chloride 0.9% IV Drips/Infusions heparin, 5-30 Units/kg/hr, Last Rate: 8.6 Units/kg/hr (06/11/222124) Labs CBC Results from last 7 days Lab Units 06/12/22 1219 06/12/22 0312 WBC AUTO 10*3/uL -- 11.5* HEMOGLOBIN g/dL 7.8* 6.9* HEMATOCRIT % 23.6* 21.4* PLATELETS AUTO 10*3/uL -- 46* BMP: Results from last 7 days Lab Units 06/12/22 0312 06/11/22 03206/10/222202 SODIUM mmol/L 142 139 140 POTASSIUM mmol/L 3.0* 3.6 3.9 CHLORIDE mmol/L 115* 104 107 CO2 mmol/L 22 25 24 BUN mg/dL 55* 57* 57* CREATININE mg/dL 1.43* 2.29* 2.40* GLUCOSE mg/dL 171* 190* 216* CALCIUM mg/dL 6.6* 8.0* 8.0* ABG: LIVER PROFILE Results from last 7 days Lab Units 06/12/22 0312 06/11/2232106/10/22220206/09/22 1640 06/09/22 1132 ALK PHOS U/L 50 80 77 < > 120 BILIRUBIN TOTAL mg/dL 0.9 1.5* 1.6* < > 1.0 BILIRUBIN DIRECT mg/dL -- -- -- -- 0.0 PROTEIN TOTAL g/dL 4.6* 6.2* 6.0* < > 6.1* ALT U/L 9 11 12 < > 11 AST U/L 23 36 35 < > 24 < > = values in this interval not displayed. INR No lab exists for component: PT PTT No results found for: PTT Cultures E. coli bacteremia Radiology Chest x-ray reviewed increased interstitial prominence Active Hospital Problem List Patient Active Problem List Diagnosis Hypertension Edema Foot ulcer ([facility]) Hyperlipemia Bladder spasm Type 2 diabetes mellitus with hyperglycemia ([facility]) ([facility]) Wounds, multiple Degenerative disc disease, cervical Chronic pain Osteoarthrosis PAF (paroxysmal atrial fibrillation) ([facility]) ([facility]) Cognitive decline Morbid obesity with BMI of 60.0-69.9, adult ([facility]) ([facility]) 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 ([facility]) Recurrent UTI Cerebrovascular accident (HCC) Hyperglycemia Chronic indwelling Jose catheter CKD (chronic kidney disease) Asymptomatic bacteriuria Anemia Septic shock (CMS/HCC) (HCC) Assessment and Plan Severe sepsis status post septic shock due to E. coli ESBL/ bacteremia, off Levophed continue with antibiotics monitor hemodynamics Left UPJ calculus and hydronephrosis status post cystoscopy/ureteroscopy and stent placement in the left ureter by urology Lactic acidosis normal now Hypoxemia Currently on 3 L Titrate FiO2 to keep O2 sat 92 percentile Diabetes type 2 with hyperglycemia, improve glycemic control History of paroxysmal A-fib, patient on apixaban currently patient refusing to take pills on IV heparin currently Acute kidney injury on chronic kidney disease stage III/ATN related to above creatinine is gradually improving, bicarb infusion has been discontinued-monitor BMP Heart failure with preserved ejection fraction will discontinue IV fluid as recommended per nephrology Follow-up chest imaging Severe morbid obesity history of sleep apnea noncompliant with PAP therapy Patient refusing PAP therapy Right lower lobe lung nodule repeat CAT scan of the chest in 3 months Alzheimer's/vascular dementia refusing to take pills Drop in H&H Patient to get blood transfusion Follow serial H&H Monitor for any signs of bleeding Advance Directive: Full Code Case discussed with nurse and patient/ Questions and concerns addressed. [facility] Progress Note Subjective/ 71 y.o. year old female who we are seeing in consultation for WHITLEY. NAEON Resting in bed Eating lunch Conversive Denies chest pain/SOB No other new issues at this time ROS done and negative unless mentioned as above No change in PFSH All data labs/interval notes and overnight issues are reviewed Objective/ Vitals: 06/12/22 0307 06/12/22 0617 06/12/22 0633 06/12/22 0846 BP: 121/78 (!) 134/48 (!) 148/47 134/53 BP Location: Left arm Patient Position: Lying Pulse: 63 58 59 Resp: 18 17 20 Temp: 36.6 C (97.8 F) 36.6 C (97.9 F) 36.7 C (98.1 F) 36.7 C (98.1 F) TempSrc: Oral Oral Oral Oral SpO2: 96% 97% Weight: Height: Intake/Output Summary (Last 24 hours) at 06/12/2022 1228 Last data filed at 06/12/2022 0846 Gross per 24 hour Intake 1645.83 ml Output 1000 ml Net 645.83 ml [Held by provider] apixaban, 5 mg, Oral, BID atorvastatin, 20 mg, Oral, Daily baclofen, 5 mg, Oral, BID [Held by provider] gabapentin, 100 mg, Oral, BID Hydrocortisone Sod Suc (PF), 50 mg, IntraVENous, q8h insulin glargine, 10 Units, SubCUTAneous, Nightly insulin lispro, 0-18 Units, SubCUTAneous, q6h meropenem, 1,000 mg, IntraVENous, q12h pantoprazole, 40 mg, Oral, Nightly Or pantoprazole, 40 mg, IntraVENous, Nightly sodium chloride 0.9%, 5-40 mL, IntraVENous, 2 times per day heparin, 5-30 Units/kg/hr, Last Rate: 8.6 Units/kg/hr (06/11/222124) lactated Ringer's, 100 mL/hr, Last Rate: 100 mL/hr (06/12/22 1210) PRN medications: dextrose, dextrose, glucagon (rDNA), glucose, heparin, heparin, ondansetron, sodium chloride, sodium chloride 0.9% Constitutional: Alert, awake, slow to respond, no apparent distress Eyes: No icterus, no pallor HEENT: no pallor/cyanosis or icterus Cardiovascular: S1, S2 without m/r/g Respiratory: CTA B without w/r/r GI: +bs, soft, nt : jose absent Ext: trace BLE edema Neck: supple, no thyroid enlargement, no JVD elevation Skin: warm, moist, no rashes Results from last 7 days Lab Units 06/12/22 0312 06/11/22 0322 06/10/22 2203 SODIUM mmol/L 142 139 140 POTASSIUM mmol/L 3.0* 3.6 3.9 CHLORIDE mmol/L 115* 104 107 CO2 mmol/L 22 25 24 BUN mg/dL 55* 57* 57* CREATININE mg/dL 1.43* 2.29* 2.40* GLUCOSE mg/dL 171* 190* 216* CALCIUM mg/dL 6.6* 8.0* 8.0* Results from last 7 days Lab Units 06/12/22 0312 06/11/22 0322 06/10/22 0321 WBC AUTO 10*3/uL 11.5* 12.7* 11.4* HEMOGLOBIN g/dL 6.9* 8.4* 8.8* HEMATOCRIT % 21.4* 26.6* 28.7* PLATELETS AUTO 10*3/uL 46* 43* 67* Assessment 1. Acute kidney injury suspect acute tubular necrosis from severe sepsis and septic shock 2. Gram-negative bacteremia 3. Anemia 4. Acute hypokalemia 5. Morbid obesity 6. Urinary tract infection 7. CKD3b RECOMMENDATIONS: ATN resolved, scr continues to improve near bl~1.4, non-oliguric, BP stable Ok to discontinue LR since scr is back to baseline and acidosis resolved Urology recs noted Agree with transfusion for hgb <7 K supplemented 06/12 C/w holding acei for now Defer management of IVAB to primary team We will follow. Thank you for the consult and the opportunity to participate in the care of this patient. Please do not hesitate to contact us with any questions or concerns. Ana Brennan APRN, MANAGER PRESENTATION [facility], [email or web address] [phone] I have reviewed the above assessment and plan with the HAND I THERMAL CUTTER. I agree with above note. Cr improving. Replete KArnulfo UROLOGY PROGRESS NOTE PATIENT NAME: Salazar Coyle DATE OF : 1950 ADMISSION DATE: 06/09/2022 11:12 AM TODAY'S DATE: 06/12/2022 Subjective No acute events overnight. Lying in bed in no acute distress. Received 1 unit of PRBC this AM for hemoglobin of 6.9. Waiting on repeat hgb. Denies any catheter malfunction. Denies any dysuria or hematuria. Yellow clear urine draining. Objective VS: BP 134/53 Pulse 59 Temp 36.7 C (98.1 F) (Oral) Resp 20 Ht 5' 6" (1.676 m) Wt 289 lb (131 kg) SpO2 97% BMI 46.65 kg/m I & O - 24hr: Intake/Output Summary (Last 24 hours) at 06/12/2022 0953 Last data filed at 06/12/2022 0846 Gross per 24 hour Intake 1645.83 ml Output 1000 ml Net 645.83 ml Physical Exam: General: Neck: Resp: Abdomen: No acute distress Supple Normal effort Soft, non-tender, nondistended : Catheter draining clear yellow urine with no clots, moderate sediment, and no hematuria. Skin: Skin color, texture, turgor normal, no rashes or lesions Labs and Imaging Studies CBC: Recent Labs 06/10/2232006/11/2232106/12/22311 WBC 11.4* 12.7* 11.5* HGB 8.8* 8.4* 6.9* HCT 28.7* 26.6* 21.4* MCV 81.9 80.5 79.2* PLT 67* 43* 46* BMP: Recent Labs 06/10/22 0321 06/10/22 1114 06/10/223 06/11/2232106/12/22311 NA 140 < > 140 139 142 K 3.5 < > 3.9 3.6 3.0* CL 109* < > 107 104 115* CO2 19* < > 24 25 22 PHOS 2.9 -- -- 3.1 2.1* BUN 49* < > 57* 57* 55* CREATININE 2.40* < > 2.40* 2.29* 1.43* < > = values in this interval not displayed. Magnesium: Lab Results Component Value Date MG 1.6 06/12/2022 Phosphate: Lab Results Component Value Date PHOS 2.1 (L) 06/12/2022 PT/INR: No results for input(s): PROTIME, INR in the last 72 hours. U/A: Lab Results Component Value Date BLOODU >1.0 (A) 06/10/2022 GLUCOSEU Normal 06/10/2022 KETONESU Negative 06/10/2022 Urine Culture: No components found for: LABURIN Blood Culture: Imaging Studies: Assessment and Plan ASSESMENT: Salazar Coyle is a 71 year old female admitted with severe sepsis with encephalopathy secondary to ESBL positive E. Coli bacteremia in the setting of a obstructing ureteral calculus. Urology was consulted for the management of the obstructive uropathy and catheter management. She is POD #2 C&P left ureteral stent insertion. PLAN: - Leukocytosis trending down 11.5 (12.7) - Creatinine trending down 1.43 (2.29) - Continue meropenem but recommend adding coverage for gram positive cocci and gram positive bacilli. Will defer antibiotic management to infectious disease. Appreciate recommendations. - Please maintain jose catheter to straight drain. Do not remove catheter, she will be discharged with this. Please document output [id number] - Continue to trend labs daily - Vital signs per nursing protocol. - She will need to follow up with urology outpatient for catheter management & UTI prevention. Will coordinate after she is discharged. - She will need definitive stone management after her infection clears, urology to coordinate. Urology signing off. Thank you for this consultation and allow for participation in this patient's care. Please call with questions concerns or changes in patient's urologic status. ZINA Espinal CNP 06/12/22 9:53 AM On this date,06/12/2022 I have spent 35 minutes reviewing previous notes, test results and [id number] with the patient discussing the diagnosis importance of compliance with the treatment plan as well as documenting on the day of the visit. Images from the original note were not included. Palliative Care Progress Note Chief Complaint: Salazar Coyle is a 71 y.o. female with chief complaint of Acute Encephalopathy. Palliative Care is actively following. Assessment/Plan Bacteremia -E. Coli POSITIVE -Meropenem 1,000 mg Q12 -Noted hydronephrosis r/t stone below. -Continues with jose catheter. -Previously on pressor support. -Monitor. Hydronephrosis -2/2 L ureteral stone. -S/p removal with stent on 06-10-22 -Urology following. Acute Encephalopathy -Hx vascular dementia, worsening dementia? -Multifactorial, r/t Infection, WHITLEY? -Currently AOx 1-2 (self and place) -Continue to monitor. Frequent UTI -Recently treated for UTI at facility. WHITLEY -2/2 above stone and hydronephrosis. -Noted dialysis history , has not had dialysis since this time. -Creatinine 1.43 BUN 55 -Avoid nephrotoxic meds, renally dose all medications. -Monitor I/O -Nephrology following. Debility -Needs assistance with all ADL -Monitor. Hx Vascular dementia -As above. -Unknown of baseline mentation. -Aox1-2 today. -Resides at [facility]. Hx DM II -Noted poor compliance of BGT/insulin at present [facility]. -SSI -Per primary. Palliative Care Encounter/Goals of Care -Met briefly with patient. Case management working to place at different facility on d/c possibly. -Discussed case with TCC Poornima and she will call daughter today to discuss d/c planning. -Palliative care will continue to follow peripherally until d/c. - will continue to follow for ongoing monitoring of progression of Pain as well as for appropriateness for hospice care due to Dementia - will continue treatment including n/a Total of 25 minutes spent on this encounter including Chart review, Patient visit and exam, Documentation in EHR, Care coordination, and Communicating with primary attending or other consultants. Discharge planning: Ready for discharge from Palliative Care perspective, no follow-up needed Patient meets criteria for general inpatient hospice care including the following: N/A - Palliative Care Patient Referrals to: None Discussed patient and the plan of care with the other interdisciplinary team (IDT) members of Palliative Care Team, and with Consultants, Primary Attending, and Patient I have discussed the patient's case and plan of care with my collaborating physician Dr. Beasley Subjective: Subjective/Events She is seen today, last seen 06-10-22. NAEON. She appears to be at baseline. Awakens to voice. AOx1-2. Creatinine trending down. Pressors off. NC in place. This AM hgb low, receiving PRBC. Continue to follow clinical course. Goals of care:Continue Current Management Advance Directives: Full Code Surrogate: HCPOA Prognosis: depends upon goals Spiritual assessment: No spiritual distress identified Bereavement and grief: To Be Determined Review of Systems ROS: See palliative care ROS/ESAS below; Detail ROS unable to be obtained due to patient's mental status Monroe Symptom Assessment Score Monroe Score Pain Score 0 Tiredness Score 0 Nausea Score 0 Depression Score 0 Anxiety Score 0 Drowsiness Score 0 Anorexia Score (0= eating well, 10= not eating) 5 Wellbeing Score (10= worst sense of well-being) 4 Constipation 0 Dyspnea Score (0= no shortness of breath) 0 FLACC Scale (For Pain Assessment of the Non-Verbal Patient) Face: 0- no particular expression Legs: 0- normal position or relaxed Activity: 0-lying quietly, moves easily Cry: 0-no cry Consolability:0-content, relaxed Total Score: 0 Assessed by: provider. Social history: status: no Marital status: Living status: [facility] Work history: n/a Family Meeting: (if discussing Advanced Care Planning, include .PALLACP) Participants: child-->called by case management today. Family meeting was held to discuss:Goals of Care Objective: Physical Exam BP (!) 148/47 Pulse 59 Temp 36.7 C (98.1 F) (Oral) Resp 20 Ht 5' 6" (1.676 m) Wt 289 lb (131 kg) SpO2 97% BMI 46.65 kg/m Physical Exam Vitals and nursing note reviewed. Constitutional: General: She is not in acute distress. Appearance: She is obese. She is ill-appearing. HENT: Head: Normocephalic and atraumatic. Nose: Nose normal. Mouth/Throat: Mouth: Mucous membranes are moist. Pharynx: Oropharynx is clear. Eyes: General: Right eye: No discharge. Left eye: No discharge. Extraocular Movements: Extraocular movements intact. Pupils: Pupils are equal, round, and reactive to light. Cardiovascular: Rate and Rhythm: Normal rate and regular rhythm. Pulses: Normal pulses. Heart sounds: Normal heart sounds. Pulmonary: Effort: Pulmonary effort is normal. Breath sounds: Normal breath sounds. Comments: NC in place Abdominal: General: Bowel sounds are normal. There is no distension. Palpations: Abdomen is soft. Tenderness: There is no abdominal tenderness. Genitourinary: Comments: Jose in place Musculoskeletal: Cervical back: Normal range of motion and neck supple. Right lower leg: No edema. Left lower leg: No edema. Skin: General: Skin is warm and dry. Capillary Refill: Capillary refill takes less than 2 seconds. Coloration: Skin is pale. Neurological: Mental Status: She is alert. Mental status is at baseline. Current Medications: Inpatient medications reviewed: yes Home medications reviewed: yes OARRS Reviewed: No Report Available 24 Hour PRN Meds: no PRN medications in 24 hours Results/Verification of Data Review Objective data reviewed (be specific which labs, imaging reports with dates reviewed): 06-12-->CBC, BMP Data in Support of Terminal Illness: Is patient hospice appropriate? TBD [facility] Respiratory Care Department Progress Note Comment or reasoning for refusal: Patient was seen in attempts to fulfill CPAP/BiPAP/AutoPAP order. Patient refused PAP therapy/study at this time. Patient was educated on medical need and reasoning for physician order to ensure patient was making an informed medical decision. All of the patient's questions were answered at this time and patient was informed that if the patient changes their mind regarding wearing PAP to hit their "call light" or inform their nurse to contact Respiratory. A second, consecutive night of refusing PAP therapy/study results in order completion in the EMR. If future CPAP/BiPAP/AutoPAP therapy or study is indicated please place another order in the EMR and the assigned Respiratory Therapist will reattempt to fulfill orders. Thank you for involving Respiratory in the care of this patient, Images from the original note were not included. [facility] - Infectious Diseases Attending Progress Note Subjective: Awake and able to tell me she is in no pain, but when I move R leg, she yells out.- not able to tell me if this is chronic or new And it is difficult to assess her as her mumbling answers are very muted. Denies cough, SOB, abdominal pain or diarrhea and denies any COFFMAN Objective: s/p several bags of albumin, off pressors, and now on IV Solu-Cortef day 2 Vitals: Patient Vitals for the past 24 hrs: BP Temp Temp src Pulse Resp SpO2 06/11/22 1703 (!) 116/46 -- -- 63 20 94 % 06/11/22 1603 -- 36.6 C (97.8 F) Oral 77 20 97 % 06/11/22 1503 127/56 -- -- 73 21 96 % 06/11/22 1403 113/55 -- -- 83 17 96 % 06/11/22 1303 (!) 113/46 -- -- 78 17 99 % 06/11/22 1203 102/56 -- -- 82 16 99 % 06/11/22 0903 (!) 124/43 -- -- 81 19 94 % 06/11/22 0803 124/50 36.8 C (98.2 F) Oral 79 23 100 % 06/11/22 0703 134/54 -- -- 69 25 100 % 06/11/22 0603 134/51 -- -- 90 16 99 % 06/11/22 0503 115/55 -- -- 54 18 98 % 06/11/22 0403 127/55 -- -- 77 19 98 % 06/11/22 0318 97/85 36.2 C (97.1 F) Axillary 82 21 93 % 06/11/22 0314 101/74 -- -- 79 23 96 % 06/11/22 0103 (!) 144/61 -- -- 82 18 96 % 06/11/22 0003 133/56 -- -- 82 18 95 % 06/10/22 2309 139/60 -- -- 87 26 90 % 06/10/22 2303 131/61 36.3 C (97.4 F) Axillary 86 (!) 27 100 % 06/10/223 131/52 -- -- 86 (!) 27 99 % 06/10/222123 124/63 -- -- 86 19 99 % 06/10/222032 134/57 -- -- 84 19 97 % 06/10/222027 -- -- -- 88 -- 95 % 06/10/222016 (!) 144/62 -- -- 86 22 97 % 06/10/222002 (!) 144/57 -- -- 85 25 98 % 06/10/22 1947 122/56 -- -- 87 20 92 % 06/10/221939 131/58 -- -- 83 20 (!) 88 % 06/10/22 191 (!) 149/43 36.6 C (97.9 F) Axillary 93 20 90 % 06/10/22 1806 (!) 148/54 -- -- 89 20 90 % Physical Exam Vitals and nursing note reviewed. Constitutional: Appearance: She is obese. She is ill-appearing. She is not diaphoretic. HENT: Nose: Nose normal. No congestion or rhinorrhea. Mouth/Throat: Mouth: Mucous membranes are dry. Comments: Poor dentition in lower mouth but no teeth seen in upper mouth. Dry Eyes: Extraocular Movements: Extraocular movements intact. Conjunctiva/sclera: Conjunctivae normal. Pupils: Pupils are equal, round, and reactive to light. Cardiovascular: Comments: Distant heart tones but no murmur appreciated Pulmonary: Comments: Diminished effort of breathing - shallow, with NC oxygen off nostrils Breathing is unlabored Has quiet breath sounds on limited exam (Cannot move her due to her obesity and weakness) Abdominal: Palpations: Abdomen is soft. Tenderness: There is no abdominal tenderness. There is no right CVA tenderness or left CVA tenderness. Musculoskeletal: General: Deformity present. Cervical back: Normal range of motion. No tenderness. Right lower leg: Edema present. Left lower leg: Edema present. Lymphadenopathy: Cervical: No cervical adenopathy. Skin: General: Skin is warm. Comments: Legs with foot deformities bilaterally R>>L with pain on my attempt to elevate R leg (which is internally rotated) Can't tell me where the pain is Dry patches of skin/emollient still caked on legs and feet but no open sores noted Scabs noted on both lower legs without cellulitis Chronic venous stasis changes and marked leg edema noted Neurological: Mental Status: She is alert. She is disoriented. Motor: Weakness present. Psychiatric: Comments: Hard to assess mental status but appears confused Labs: Recent Labs 06/09/22 1640 06/10/22 0321 06/10/22 1114 06/10/22 2203 06/11/22 0322 NA 138 < > 142 140 139 K 4.5 < > 3.8 3.9 3.6 CL 109* < > 109* 107 104 CO2 23 < > 18* 24 25 BUN 47* < > 52* 57* 57* CREATININE 2.11* < > 2.57* 2.40* 2.29* GLUCOSE 283* < > 209* 216* 190* CALCIUM 7.8* < > 8.2* 8.0* 8.0* PROT 6.0* < > 6.0* 6.0* 6.2* BILITOT 0.9 < > 1.4* 1.6* 1.5* ALKPHOS 64 < > 80 77 80 AST 23 < > 27 35 36 ALT 9 < > 12 12 11 PROCAL 17.91* -- -- -- 76.84* < > = values in this interval not displayed. Recent Labs 06/09/22 1132 06/09/22 1640 06/10/22 0321 06/11/22 0322 WBC 10.2 9.3 11.4* 12.7* HGB 9.5* 7.6* 8.8* 8.4* HCT 30.1* 23.8* 28.7* 26.6* PLT 116* 107* 67* 43* LYMPHOPCT 3.1* 6* 3* 5.0* MONOPCT 3.1 3 -- 3.1 BASOPCT 0.2 -- -- 0.1 NEUTROABS 9.5* -- -- 11.1* Micro: No results for input(s): COVID19 in the last 72 hours. ESBL Ecoli in BC from admission 06/09 in addition to one bottle also having MRSE and the other bottle having P. Mirabilis ESBL E coli in urine culture from admission only sensitive to meropenem, Gent and Bactrim Urine culture repeated with jose change on 06/10/22 after a day of broad antibiotics with mixed organisms Antimicrobials,Start/End Dates: Meropenem Impression & Plan: 1) Severe Sepsis with encephalopathy, WHITLEY (cr 2.4), and lactic acidosis (4.9) hypotension, thrombocytopenia 107 (67 on admission) Off pressors today and more alert 2) ESBL positive E. Coli bacteremia 2/2 BC from 06/09 admission Repeat BC 06/10/22 are NG so far Sensitivities returned today with organism only susceptible to Gent, Meropenem, and Bactrim Urine was obtained from a chronic jose that nurses can't change due to difficulty replacing (BMI of 47) Noted that new urine sent yesterday with mixed organisms but this was obtained after over one day of antibiotics 3). Thrombocytopenia progressing - now 43- likely from sepsis but concern for chronic liver disease given chronic, longstanding morbid obesity 4) WHITLEY- history of CKD with baseline Cr of 1.42, increased to 2.4, but slight trend downwards today to 2.29. With slight improvement in urine output today (1358 ml so far) 4) encephalopathy - noted to have history of dementia Improved MS today 5) leukocytosis today likely due to Solu-Cortef started yesterday yesterday 6) multiple co-morbidities of cognitive & functional decline, DM 2 - insulin requiring, CKD, PAF, HTN, HLP, chronic anemia, morbid obesity but weight loss from BMI 60 to 47, hx of diabetic foot wounds and osteo, lymphedema and non-compliance Plan- will continue on Meropenem as patient is still in critical care with slow recovery and multiple co-morbidities Dose adjusted yesterday for acute on CKD, but if kidneys improving, may need to further adjust dose. Total time 50 minutes on this day of encounter includes difficult assessment, large amount of data to review in chart, coordinating plan of care, record and documentation review before and after visit including documentation and time not explicitly included on EMR time stamp for accounting for open encounter. [facility] Nephrology Consultation Note Reason for consultation: Chief Complaint: AMS Background Patient is a 71 y.o. female with past medical history of Patient with history of morbid obesity atrial fibrillation diabetes mellitus type 2 lymphedema. Admitted for altered mental status and fever. Nephrology has been consulted for WHITLEY on CKD. Patient has been off of dialysis since April 06, 2020. It appears patient's baseline creatinine is close to 1.4-1.6. On presentation creatinine was 2.27 and is now up to 2.4. Interval History Urology was consulted, found pyohydronephrosis. Underwent left retrograde pyelogram and Jose catheter placement. Left ureteral stent was placed. Grossly purulent discharge was drained. Left-sided severe hydronephrosis was noted. Patient remains confusing Unable to obtain ROS due to patients clinical condition. Current Medications: [Held by provider] apixaban, 5 mg, Oral, BID atorvastatin, 20 mg, Oral, Daily baclofen, 5 mg, Oral, BID [Held by provider] gabapentin, 100 mg, Oral, BID Hydrocortisone Sod Suc (PF), 50 mg, IntraVENous, q8h insulin glargine, 10 Units, SubCUTAneous, Nightly insulin lispro, 0-18 Units, SubCUTAneous, q6h meropenem, 1,000 mg, IntraVENous, q12h pantoprazole, 40 mg, Oral, Nightly Or pantoprazole, 40 mg, IntraVENous, Nightly sodium chloride 0.9%, 5-40 mL, IntraVENous, 2 times per day Continuous Infusions:heparin, 5-30 Units/kg/hr, Last Rate: 8.626 Units/kg/hr (06/10/222058) lactated Ringer's, 100 mL/hr, Last Rate: 100 mL/hr (06/11/22531) PRN Meds:PRN medications: dextrose, dextrose, glucagon (rDNA), glucose, heparin, heparin, ondansetron, sodium chloride, sodium chloride 0.9% Physical Exam Vitals: 06/11/22 0318 06/11/22 0403 06/11/22 0503 06/11/22 0603 BP: 97/85 127/55 115/55 134/51 BP Location: Left arm Patient Position: Lying Pulse: 82 77 54 90 Resp: 21 19 18 16 Temp: 36.2 C (97.1 F) TempSrc: Axillary SpO2: 93% 98% 98% 99% Weight: Height: 24 HR INTAKE/OUTPUT: Intake/Output Summary (Last 24 hours) at 06/11/2022 0917 Last data filed at 06/11/2022 0638 Gross per 24 hour Intake 4273 ml Output 548 ml Net 3725 ml General: unComfortable appearing, moaning awake alert Head: NCAT Eye anicteric sclera, conjunctiva clear Mouth mucus membrane dry appearing Neck: Supple, no jvd Chest: B/L equal air entry , no crackles, no accessory muscles usage. CV: s1s2 heard RRR, no murmurs or rubs Abdomen: NT, non Distended, soft Bowel sounds present , No palpable masses morbid obesity Extremities: 1 + peripheral edema, no cyanosis or clubbing Skin Warm No rash Neurological: did not participate in conversation awake alert and does track Data Recent Labs 06/09/22 1640 06/10/22 0321 06/11/22 0322 WBC 9.3 11.4* 12.7* HGB 7.6* 8.8* 8.4* HCT 23.8* 28.7* 26.6* MCV 80.8 81.9 80.5 PLT 107* 67* 43* Recent Labs 06/10/22 0321 06/10/22 1114 06/10/22 2203 06/11/22 0322 NA 140 142 140 139 K 3.5 3.8 3.9 3.6 CL 109* 109* 107 104 CO2 19* 18* 24 25 GLUCOSE 219* 209* 216* 190* PHOS 2.9 -- -- 3.1 MG 1.6 -- -- 1.7 BUN 49* 52* 57* 57* CREATININE 2.40* 2.57* 2.40* 2.29* Albumin: No components found for: LABALBU Calcium: Lab Results Component Value Date CALCIUM 8.0 (L) 06/11/2022 ) Lab Results Component Value Date COLORU Yellow 06/10/2022 GLUCOSEU Normal 06/10/2022 UROBILINOGEN Normal 06/10/2022 Imaging: CT abdomen results pending Assessment 71 y.o. female with 1. 1. Acute kidney injury suspect acute tubular necrosis from severe sepsis and septic shock 2. Gram-negative bacteremia 3. Urinary tract infection 4. Morbid obesity 5. Calcium oxalate crystalluria 6. Non-anion gap metabolic acidosis 7. lactic acidosis RECOMMENDATIONS: Continue with volume expansion. Getting LR Appreciate urology Hoping for slow but sustained recovery. Patient already has been fluid resuscitated. Creatinine is downtrending acidosis is resolving. Now on lactated Ringer bicarbonate drip has been discontinued agree with that Thankfully starting to improve renal function slowly Anticipate there is some degree of ATN and only slow recovery is expected Lisinopril is being held appropriately. We will follow. Images from the original note were not included. [facility] [place] and [place] Medicine [address] [place] [address] Critical Care Note: Patient - Salazar Coyle, Age - 71 y.o. - 1950 Room Number - [id number] A [facility] # - [id number] Date of Admission - 06/09/2022 11:12 AM Hospital Day - 2 HPI/Subjective 71-year-old female with severe morbid obesity, history of atrial fibrillation on apixaban type 2 diabetes chronic lymphedema admitted to the hospital via emergency from room from an extended care facility for low-grade fever, change in mental status patient also has history of underlying dementia patient previously had been treated for UTI at the nursing facility Active Hospital Problem List Patient Active Problem List Diagnosis Hypertension Edema Foot ulcer ([facility]) Hyperlipemia Bladder spasm Type 2 diabetes mellitus with hyperglycemia ([facility]) ([facility]) Wounds, multiple Degenerative disc disease, cervical Chronic pain Osteoarthrosis PAF (paroxysmal atrial fibrillation) ([facility]) ([facility]) Cognitive decline Morbid obesity with BMI of 60.0-69.9, adult ([facility]) ([facility]) 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 ([facility]) Recurrent UTI Cerebrovascular accident ([facility]) Hyperglycemia Chronic indwelling Jose catheter CKD (chronic kidney disease) Asymptomatic bacteriuria Anemia Septic shock ([facility]) ([facility]) Events of Past 24 Hours Blood cultures are positive for ESBL E. coli, MRSA, patient underwent cystoscopy/ureteroscopy with insertion of stent in the left ureter for left PE UVJ calculus with hydronephrosis Vitals height is 5' 6" (1.676 m) and weight is 289 lb (131 kg). Her axillary temperature is 36.2 C (97.1 F). Her blood pressure is 134/51 and her pulse is 90. Her respiration is 16 and oxygen saturation is 99%. Range Data Temperature Range: Temp: 36.2 C (97.1 F) (warming blankets place, heat turned up)Temp Av.4 C (97.6 F) Min: 36.2 C (97.1 F) Max: 36.6 C (97.9 F) BP Range: Systolic (24hrs), Av , Min:87 , Max:149 Diastolic (24hrs), Av, Min:33, Max:85 Pulse Range: Pulse Av.9 Min: 54 Max: 115 Respiration Range: Resp Av.7 Min: 16 Max: 34SpO2: 99 % 24hr Pulse Ox Range: SpO2 Av.3 % Min: 85 % Max: 100 % O2 Flow Rate (L/min): 5 L/min I/O Intake/Output Summary (Last 24 hours) at 06/11/2022 0654 Last data filed at 06/11/2022 0638 Gross per 24 hour Intake 4273 ml Output 548 ml Net 3725 ml I/O last 3 completed shifts: In: 6567 (50.1 mL/kg) [I.V.:3347 (25.5 mL/kg); IV Piggyback:3220] Out: 433 (3.3 mL/kg) [Urine:433 (0.1 mL/kg/hr)] Weight: 131.1 kg @IODETAILS@ @[id number]@ Lines, ET tube, Devices Lines - none Medications [Held by provider] apixaban, 5 mg, Oral, BID atorvastatin, 20 mg, Oral, Daily baclofen, 5 mg, Oral, BID [Held by provider] gabapentin, 100 mg, Oral, BID Hydrocortisone Sod Suc (PF), 50 mg, IntraVENous, q8h insulin glargine, 10 Units, SubCUTAneous, Nightly insulin lispro, 0-18 Units, SubCUTAneous, q6h meropenem, 1,000 mg, IntraVENous, q12h pantoprazole, 40 mg, Oral, Nightly Or pantoprazole, 40 mg, IntraVENous, Nightly sodium chloride 0.9%, 5-40 mL, IntraVENous, 2 times per day PRN PRN medications: dextrose, dextrose, glucagon (rDNA), glucose, heparin, heparin, ondansetron, sodium chloride, sodium chloride 0.9% IV heparin, 5-30 Units/kg/hr, Last Rate: 8.626 Units/kg/hr (06/10/222058) lactated Ringer's, 100 mL/hr, Last Rate: 100 mL/hr (06/11/22531) Diet/Nutrition Adult diet Easy to Chew; 4 carb choices (60 gm/meal) Exam Constitutional - Awake General Appearance well developed, well nourished HEENT - Normocephalic, atraumatic. PERRLA, sclarea is anicteric, conjunctiva is pink, nasal mucosa is normal, no congestion, external ears are intact. Lungs - Poor air entry bilaterally, diminished breathe sounds at the bases, no obvious wheezing or crackles. Chest expands equally, no wheezes, rales or rhonchi. Cardiovascular - Heart sounds are normal. normal rate and rhythm regular, no murmur, gallop or rub. Abdomen - soft, nontender, nondistended, no masses or organomegaly Neurologic - CN II-XII are grossly intact. There are no focal motor deficits grossly Skin - no bruising or bleeding, good turgor, normal warmth Extremities - no cyanosis, clubbing or edema-chronic venous stasis changes Peripheral pulses- radial and pedal pulses 2+ bilaterally Lab Results CBC Lab Results Component Value Date WBC 12.7 (H) 06/11/2022 RBC 3.30 (L) 06/11/2022 HGB 8.4 (L) 06/11/2022 HCT 26.6 (L) 06/11/2022 PLT 43 (L) 06/11/2022 MCV 80.5 06/11/2022 MCH 25.5 (L) 06/11/2022 MCHC 31.7 (L) 06/11/2022 RDW 18.3 (H) 06/11/2022 NRBC 0.0 06/11/2022 BANDSPCT 8 (H) 06/10/2022 LYMPHOPCT 5.0 (L) 06/11/2022 MONOPCT 3.1 06/11/2022 EOSPCT 3.8 06/11/2022 BASOPCT 0.1 06/11/2022 MONOSABS 0.4 06/11/2022 LYMPHSABS 0.6 (L) 06/11/2022 EOSABS 0.5 06/11/2022 BASOSABS 0.0 06/11/2022 BMP Lab Results Component Value Date NA 139 06/11/2022 K 3.6 06/11/2022 CL 104 06/11/2022 CO2 25 06/11/2022 BUN 57 (H) 06/11/2022 CREATININE 2.29 (H) 06/11/2022 GLUCOSE 190 (H) 06/11/2022 LFTS Lab Results Component Value Date ALKPHOS 80 06/11/2022 ALT 11 06/11/2022 AST 36 06/11/2022 PROT 6.2 (L) 06/11/2022 BILITOT 1.5 (H) 06/11/2022 BILIDIR 0.0 06/09/2022 ABG No components found for: IFIO2, MODE, SETTIDVOL, SETPEEP INR Lab Results Component Value Date INR 1.1 03/14/2021 INR 1.1 03/08/2021 PROTIME 11.4 03/14/2021 PROTIME 11.4 03/08/2021 APTT Recent Labs 06/10/22 2107 06/10/22 2203 06/11/22 0322 APTT 130.6* 54.2* 63.8* Lactic Acid No components found for: LACTA BNP No results for input(s): BNP in the last 72 hours. Cultures As above Radiology CXR portable:Results for orders placed during the hospital encounter of 06/09/22 XR chest 1 view Narrative Patient Name: SALAZAR COYLE : 1950 Exam Date/Time: 06/10/2022 04:49 Procedure: XR CHEST 1 VIEW Ordering Provider: MCKEON MASROOR Reason For Exam: SEPSIS PORTABLE CHEST CLINICAL INDICATION: SEPSIS TECHNIQUE: Portable AP COMPARISON: None FINDINGS: Pulmonary vascular congestion without overt edema. No focal consolidation. No pleural effusions or pneumothorax. The cardiac silhouette is mildly enlarged. Calcification of the thoracic aortic is noted. The osseous structures are unremarkable. Impression Mild cardiomegaly with vascular congestion. Report Dictated on Electronically Signed By: Bashir Barnes Electronically Signed Date/Time: 06/10/2022 4:44 AM EST Reviewed (See actual reports for details) ASSESSMENT AND PLAN Severe sepsis status post septic shock due to E. coli ESBL/MRSA bacteremia, weaned off Levophed continue with antibiotics monitor hemodynamics Left UPJ calculus and hydronephrosis status post cystoscopy/ureteroscopy and stent placement in the left ureter by urology Lactic acidosis is improving Diabetes type 2 with hyperglycemia, improve glycemic control History of paroxysmal A-fib, patient on apixaban currently patient refusing to take pills patient has been started on IV heparin Acute kidney injury on chronic kidney disease stage III/ATN related to above creatinine is gradually improving, bicarb infusion has been discontinued-monitor BMP Heart failure with preserved ejection fraction Severe morbid obesity history of sleep apnea noncompliant with PAP therapy with hypoxia on supplemental oxygen at 6 L wean supplemental oxygen as tolerated Right lower lobe lung nodule repeat CAT scan of the chest in 3 months Alzheimer's/vascular dementia refusing to take pills Patient to be transferred out of ICU to [facility] service for continuing care patient discussed with [facility] physician Dr. Fay Wean oxygen as tolerated. Keep O2 sat 90-92% Stress ulcer prophylaxis Use replacement protocols DVT prophylaxis Case discussed with nurse and family. Questions and concerns addressed. Total critical care time caring for this patient with life threatening, unstable organ failure, including direct patient contact, management of life support systems, review of data including imaging and labs, discussions with other team members and physicians at least 35 minutes so far today, excluding procedures. Pt returned to ICU-3 from OR via bed. Cardiac monitors applied, assessment completed, labs obtained. Pt awakens easily to verbal stimuli, but dozes intermittently. Oriented to self only. Denies discomfort. Red urine noted in jose catheter. O2 sats frequently dropping while patient asleep; repositioned with HOB elevated and pillow placed behind neck. Sats noted to be as low at 70% on 6 L NC; Dr. Mckeon notified. See orders. RT @ bedside for PAP placement. Pt transferred to OR via bed with [facility]. Nutrition Assessment Type and Reason for Visit: Initial Nutrition Recommendations/Plan: Pt is currently NPO. If unable to advance to PO diet, suggest begin EN within 24-48 hours of admission if hemodynamically stable. Recommend Glucerna @ goal rate 45 ml hour to provide 1620 kcals, 89 gm protien, 819 ml free water (12 kcals/kg CBW 131 kg, 1.5 gm protein/kg IBW 59 kg). Start at low rate and advance slowly. Monitor weight trends/fluid balance. Concern for nutritional status prior to admission as pt appears to of had a 26% weight loss in over 1 year. Will obtain more information as able. Last known weight in EMR- 389# 04/15/21. Question accuracy of current height 5'6". Previous admits note height of 5'2" BMI information may be inaccurate. 4. RD will continue to follow and monitor overall nutritional status. Malnutrition Assessment: Malnutrition Status: Insufficient data (Need to obtain overall intake data as able over the past year given weight loss of ~100# from April 2021.) Context: Acute Illness Nutrition Assessment: Pt brought in from [facility] for low grade fever, lethargy, and change in mental status. Pt with known history of dementia, A&Ox3 at baseline. Pt admitted to ICU with septic shock. Pt recently treated for UTI at nursing facility. PMH includes severe morbid obesity, sleep apnea/ possibly obesity hypoventilation syndrome, T2DM, CHF, AFib, CKD 3. Blood cultures and urine cultures +E.Coli. Pt also with known hx of diabetic ulcer and OM in 2020. Per EMR, limited weight information over the past year. Weight appears to be approximately 100# less from April 2021. Estimated Daily Nutrient Needs: Energy Requirements Based On: Kcal/kg Weight Used for Energy Requirements: Current Weight for Energy Calculation (kg): 131 kg Total Energy Requirements (kcals/day): 4586-3534 Weight Used for Protein Requirements: [place] Weight in Kg Used for Protein Requirements: 59 kg Estimated Total Protein (g/day): 75-95 Estimated Daily Total Fluid (ml/day): Nutrition Related Findings: Multiple wounds noted, R, L pretibial, skin tear upper L leg, bruising and excoriation on coccyx, Hx of OM and I&D 2020; Alex 7; AMS/disoriented. Wound Type: Multiple, Skin Tears Current Nutrition Therapies: NPO diet NPO except: Sips of Water with Meds Current Oral Intake Average Meal Intake: NPO Average Supplements Intake: NPO Anthropometric Measures: Height: 167.6 cm (5' 6") Current Body Weight: 131 kg (289 lb) Usual Body Weight: 176 kg (389 lb) (April 2021) % Weight Change (Calculated): -25.7 [place] Body Weight (lbs) (Calculated): 130 lbs [place] Body Weight (Kg) (Calculated): 59 kg % [place] Body Weight (Calculated): 222.3 % BMI (kg/m2) (Calculated): 46.7 BMI Categories: Obese Class 3 (BMI 40.0 or greater) Nutrition Diagnosis: Inadequate energy intake related to acute injury/trauma as evidenced by NPO or clear liquid status due to medical condition Nutrition Interventions: Nutrition Education/Counseling: No recommendation at this time Coordination of Nutrition Care: Continue to monitor while inpatient Goals: Goals: Initiate PO diet, within 2 days Nutrition Monitoring and Evaluation: Food/Nutrient Intake Outcomes: Diet Advancement/Tolerance Physical Signs/Symptoms Outcomes: Biochemical Data, Chewing or Swallowing, GI Status, Fluid Status or Edema, Hemodynamic Status, Nutrition Focused Physical Findings, Skin, Weight, Meal Time Behavior Discharge Planning: Too soon to determine Aniyah Dominguez RD Contact: [phone] Images from the original note were not included. [facility] [place] Pulmonary [place] and Sleep Medicine [address] [place] [address] Critical Care Note: Patient - Salazar Coyle, Age - 71 y.o. - 1950 Room Number - [id number] A [facility] # - [id number] Date of Admission - 06/09/2022 11:12 AM Hospital Day - 1 HPI/Subjective 71-year-old female with severe morbid obesity history of atrial fibrillation type 2 diabetes chronic lymphedema admitted to the hospital via emergency room due to altered mental status low-grade fevers. With severe hypotension currently being treated for gram-negative bacteremia with shock. Active Hospital Problem List Patient Active Problem List Diagnosis Hypertension Edema Foot ulcer ([facility]) Hyperlipemia Bladder spasm Type 2 diabetes mellitus with hyperglycemia ([facility]) ([facility]) Wounds, multiple Degenerative disc disease, cervical Chronic pain Osteoarthrosis PAF (paroxysmal atrial fibrillation) ([facility]) ([facility]) Cognitive decline Morbid obesity with BMI of 60.0-69.9, adult ([facility]) ([facility]) 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) Recurrent UTI Cerebrovascular accident ([facility]) Hyperglycemia Chronic indwelling Jose catheter CKD (chronic kidney disease) Asymptomatic bacteriuria Anemia Septic shock ([facility]) ([facility]) Events of Past 24 Hours Blood cultures positive for ESBL E. coli and MRSE patient is awake follows simple commands patient has been refusing to take medications by clenching her teeth All other systems reviewed Vitals height is 1.676 m (5' 6") and weight is 131 kg (289 lb). Her axillary temperature is 37.6 C (99.7 F). Her blood pressure is 91/35 (abnormal) and her pulse is 78. Her respiration is 18 and oxygen saturation is 99%. Range Data Temperature Range: Temp: 37.6 C (99.7 F)Temp Av.4 C (99.4 F) Min: 37.1 C (98.8 F) Max: 37.8 C (100.1 F) BP Range: Systolic (24hrs), Av , Min:88 , Max:126 Diastolic (24hrs), Av, Min:35, Max:84 Pulse Range: Pulse Av.6 Min: 78 Max: 124 Respiration Range: Resp Av.5 Min: 15 Max: 24SpO2: 99 % 24hr Pulse Ox Range: SpO2 Av.4 % Min: 96 % Max: 100 % O2 Flow Rate (L/min): 3 L/min I/O Intake/Output Summary (Last 24 hours) at 06/10/2022 0707 Last data filed at 06/10/2022 0441 Gross per 24 hour Intake 3817 ml Output 410 ml Net 3407 ml I/O last 3 completed shifts: In: 3817 (29.1 mL/kg) [I.V.:1817 (13.9 mL/kg); IV Piggyback:1999] Out: 410 (3.1 mL/kg) [Urine:410 (0.1 mL/kg/hr)] Weight: 131.1 kg @IODETAILS@ @[id number]@ Lines, ET tube, Devices Lines - Medications albumin human, 50 g, IntraVENous, Once [Held by provider] apixaban, 5 mg, Oral, BID atorvastatin, 20 mg, Oral, Daily baclofen, 5 mg, Oral, BID [Held by provider] gabapentin, 100 mg, Oral, BID insulin glargine, 10 Units, SubCUTAneous, Nightly insulin regular, 0-12 Units, SubCUTAneous, q6h meropenem, 1,000 mg, IntraVENous, q8h pantoprazole, 40 mg, Oral, Nightly Or pantoprazole, 40 mg, IntraVENous, Nightly sodium chloride 0.9%, 5-40 mL, IntraVENous, 2 times per day vancomycin, 750 mg, IntraVENous, q24h PRN PRN medications: dextrose, dextrose, glucagon (rDNA), glucose, heparin, heparin, ondansetron, perflutren lipid microspheres, sodium chloride, sodium chloride 0.9% IV heparin, 5-30 Units/kg/hr, Last Rate: 8.6 Units/kg/hr (06/10/22 0406) sodium bicarbonate drip, 125 mL/hr, Last Rate: 125 mL/hr (06/10/22 0634) Diet/Nutrition NPO diet NPO except: Sips of Water with Meds Exam Constitutional - Awake General Appearance well developed, well nourished HEENT - Normocephalic, atraumatic. PERRLA, sclarea is anicteric, conjunctiva is pink, nasal mucosa is normal, no congestion, external ears are intact. Lungs - Poor air entry bilaterally, diminished breathe sounds at the bases, no obvious wheezing or crackles. Chest expands equally, no wheezes, rales or rhonchi. Cardiovascular - Heart sounds are normal. normal rate and rhythm regular, no murmur, gallop or rub. Abdomen - soft, nontender, nondistended, no masses or organomegaly Neurologic - CN II-XII are grossly intact. There are no focal motor deficits grossly Skin - no bruising or bleeding, good turgor, normal warmth Extremities - no cyanosis, clubbing or edema Peripheral pulses- radial and pedal pulses 2+ bilaterally Psychiatric: appropriate, oriented to person, place and time/date, normal thought processes, normal thought content, normal affect Lab Results CBC Lab Results Component Value Date WBC 11.4 (H) 06/10/2022 RBC 3.50 (L) 06/10/2022 HGB 8.8 (L) 06/10/2022 HCT 28.7 (L) 06/10/2022 PLT 67 (L) 06/10/2022 MCV 81.9 06/10/2022 MCH 25.2 (L) 06/10/2022 MCHC 30.8 (L) 06/10/2022 RDW 18.3 (H) 06/10/2022 NRBC 0.0 06/10/2022 BANDSPCT 8 (H) 06/10/2022 LYMPHOPCT 3 (L) 06/10/2022 LYMPHOPCT 3.1 (L) 06/09/2022 MONOPCT 3 06/09/2022 MONOPCT 3.1 06/09/2022 EOSPCT 0.1 (L) 06/09/2022 BASOPCT 0.2 06/09/2022 MONOSABS 0.3 06/09/2022 LYMPHSABS 0.3 (L) 06/09/2022 EOSABS 0.0 06/09/2022 BASOSABS 0.0 06/09/2022 BMP Lab Results Component Value Date NA 140 06/10/2022 K 3.5 06/10/2022 CL 109 (H) 06/10/2022 CO2 19 (L) 06/10/2022 BUN 49 (H) 06/10/2022 CREATININE 2.40 (H) 06/10/2022 GLUCOSE 219 (H) 06/10/2022 LFTS Lab Results Component Value Date ALKPHOS 150 (H) 06/10/2022 ALT 11 06/10/2022 AST 24 06/10/2022 PROT 5.6 (L) 06/10/2022 BILITOT 1.3 06/10/2022 BILIDIR 0.0 06/09/2022 ABG No components found for: IFIO2, MODE, SETTIDVOL, SETPEEP INR Lab Results Component Value Date INR 1.1 03/14/2021 INR 1.1 03/08/2021 PROTIME 11.4 03/14/2021 PROTIME 11.4 03/08/2021 APTT Recent Labs 06/09/22203606/10/22320 APTT 41.0* 46.1* Lactic Acid No components found for: LACTA BNP No results for input(s): BNP in the last 72 hours. Cultures As above Radiology CXR portable:Results for orders placed during the hospital encounter of 06/09/22 XR chest 1 view Narrative Patient Name: SALAZAR COYLE : 1950 Exam Date/Time: 06/10/2022 04:49 Procedure: XR CHEST 1 VIEW Ordering Provider: MCKEON MASROOR Reason For Exam: SEPSIS PORTABLE CHEST CLINICAL INDICATION: SEPSIS TECHNIQUE: Portable AP COMPARISON: None FINDINGS: Pulmonary vascular congestion without overt edema. No focal consolidation. No pleural effusions or pneumothorax. The cardiac silhouette is mildly enlarged. Calcification of the thoracic aortic is noted. The osseous structures are unremarkable. Impression Mild cardiomegaly with vascular congestion. Report Dictated on Electronically Signed By: Bashir Barnes Electronically Signed Date/Time: 06/10/2022 4:44 AM EST Reviewed (See actual reports for details) ASSESSMENT AND PLAN Severe sepsis, septic shock due to E. coli ESBL/MRSE bacteremia continue antibiotics infectious disease also has been consulted continue fluid therapy/low-dose peripheral Levophed monitor hemodynamics closely Lactic acidosis related to above, monitor lactic acid levels continue IV fluids History of dementia patient refusing to take all her meds Left UPJ calculus and hydronephrosis. To Or for stent-discussed wit urology Diabetes type 2 with hyperglycemia improved glycemic control History of paroxysmal A-fib patient was apex on apixaban patient has been started on IV heparin as she is refusing to take oral meds Acute kidney injury on chronic kidney disease stage III, slight worsening in creatinine consult nephrology patient has been started on bicarb infusion monitor BMP closely Severe morbid obesity, history of sleep apnea noncompliant with CPAP currently on supplemental oxygen at 3 L History of heart failure with preserved ejection fraction, monitor hemodynamics Lung Nodule- repeat CT chest in 3 months Multisystem organ dysfunction, patient also refusing treatment discussed with family consult palliative care as well Wean oxygen as tolerated. Keep O2 sat 90-92% Stress ulcer prophylaxis Use replacement protocols DVT prophylaxis Case discussed with nurse Questions and concerns addressed. Total critical care time caring for this patient with life threatening, unstable organ failure, including direct patient contact, management of life support systems, review of data including imaging and labs, discussions with other team members and physicians at least 35 minutes so far today, excluding procedures. Pharmacy Vancomycin Consult Follow-Up Note Non-MH TEACHER Patients Current Dosinmg q24h CREATININE Date Value Ref Range Status 06/10/2022 2.40 (H) 0.52 - 1.04 mg/dL Final 04/14/2021 1.32 (H) 0.52 - 1.25 mg/dL Final UREA NITROGEN Date Value Ref Range Status 06/10/2022 49 (H) 7 - 17 mg/dL Final Auto WBC Date Value Ref Range Status 06/09/2022 9.3 3.6 - 10.7 10*3/uL Final Ht Readings from Last 1 Encounters: 06/09/22 1.676 m (5' 6") Wt Readings from Last 1 Encounters: 06/09/22 131 kg (289 lb) Body mass index is Body mass index is 46.65 kg/m . Random: 5.9 mcg/ml drawn 06/10/22 at 596 Calculated AUC: 596 mg/L.hr Assessment/Plan: Calculated AUC is 596 mg/L.hr. Will continue current dose and continue to follow. Patient refusing po medication and sips of water. Pt clenching down jaw and shaking head 'no.' Notified Peter Carbone APRN - see orders. Pharmacy Note Vancomycin Consult Non-MH TEACHER Salazar Coyle is a 71 y.o. year old female ordered vancomycin for sepsis; consult from Dr. Hood Wood to manage therapy. Patient Active Problem List Diagnosis Date Noted Edema 04/11/2021 Hypertension 04/15/2021 Hyperlipemia 04/15/2021 Cognitive decline 04/15/2021 Morbid obesity with BMI of 60.0-69.9, adult ([facility]) ([facility]) 04/15/2021 Chronic indwelling Jose catheter 04/15/2021 Foot ulcer ([facility]) 04/13/2021 Wounds, multiple 04/11/2021 PAF (paroxysmal atrial fibrillation) ([facility]) [facility] [facility]) 04/11/2021 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 ([facility]) 04/11/2021 Hyperglycemia 04/11/2021 CKD (chronic kidney disease) 04/11/2021 Asymptomatic bacteriuria 04/11/2021 Anemia 04/11/2021 Bladder spasm 03/08/2021 Type 2 diabetes mellitus with hyperglycemia ([facility]/HCC) (HCC) 03/08/2021 Degenerative disc disease, cervical 03/08/2021 Chronic pain 03/08/2021 Osteoarthrosis 03/08/2021 Recurrent UTI 03/08/2021 Cerebrovascular accident ([facility]) 03/08/2021 Patient has no known allergies. CREATININE Date Value Ref Range Status 06/09/2022 2.27 (H) 0.52 - 1.04 mg/dL Final 04/14/2021 1.32 (H) 0.52 - 1.25 mg/dL Final UREA NITROGEN Date Value Ref Range Status 06/09/2022 49 (H) 7 - 17 mg/dL Final Auto WBC Date Value Ref Range Status 06/09/2022 10.2 3.6 - 10.7 10*3/uL Final Ht Readings from Last 1 Encounters: 06/09/22 1.676 m (5' 6") Wt Readings from Last 1 Encounters: 06/09/22 131 kg (289 lb) Plan: Will initiate vancomycin 750 mg IV every 24 hours based on predicted AUC of 576 mg/L.hr . Goal AUC is 400-600 mg/L.hr. Random level will be scheduled for 06/10/22 at 0500. Thank you for the consult. Will continue to follow. documented in this encounter [facility] 06-16-2022 Nurse Note Transport here to take pt to [facility] at this time, iv's removed with catheters intact, clean dry dressings applied. CVC remains in place. Telemetry removed and placed at nurses station. Pt denies any further needs at this time. Called report to [facility] at this time, all questions answered at this time. IR Procedures: Salazar is here from [facility] for a Tunneled Central Line placement (powerline) . She verbalizes understanding of the procedural instructions. Dr. Ellington has spoken to her. History, allergies, medications and lab results reviewed. Informed consent signed. Prepped and draped in sterile fashion. Time out was performed. She is on a monitor. Tolerated the procedure well. She is in no distress. Rep Right internal jugular (chest) tunneled central line is sutured in. Dressing is dry and intact. No bleeding. No hematoma. Band aid to right lower neck is dry and intact. Transfer back to her floor. Report called to the floor. During Vitals being taken, the patient started to yell out about automatic cuff causing pain. BP was elevated on automatic cuff possibly due to patient yelling out. Retook the patients bp manual and bp was then acceptable. Patient yelled out every time staff touched her arms. She yelled out during her blood draw as well even though her blood was pulled off of her existing IV. Patient encouraged to lay in different positions however she has refused repositioning off back, she does allow for repositioning and limbs. Dr. Penaloza on the phone with JAKY Forbes. Consent for 1 unit of PRBC obtained for patient hemoglobin of 6.9. I am the witnessing RN through phone consent. Informed Dr. Aileen MD about critical lab value of a hemoglobin of 6.9. Dr. Gallagher is at the bedside at this time speaking with patient. documented in this encounter [facility] 06-16-2022 Miscellaneous Notes Discharge med list and MAR information transmitted to return back to [facility] via [facility] per TCC request. Covid results pending. Active discharge order in place. Request for [facility] to send discharge updates via [facility]. MEAT AND POULTRY INSPECTOR assisted with transport set up for 1500. I updated [facility] transport time. Patient has been discharged. Transportation arranged through [facility] by cot set for 3 pm. Notified RN and TCC via [employer] secure chat. Updated patient's spouse of transportation time as well. Social work remains available if any other needs or concerns arise. Problem: Knowledge Deficit Goal: Patient/family/caregiver demonstrates understanding of disease process, treatment plan, medications, and discharge instructions Outcome: Not Progressing Problem: Urinary Incontinence Goal: Perineal skin integrity is maintained or improved Outcome: Not Progressing The patient is Moderately Stable - Low risk of patient condition declining or worsening The patient's goals for the shift include rest The clinical goals for the shift include Mental status, safety, education. Over the shift, the patient did not make progress toward the following goals. Barriers to progression include noncompliance. Recommendations to address these barriers include education. Problem: Knowledge Deficit Goal: Patient/family/caregiver demonstrates understanding of disease process, treatment plan, medications, and discharge instructions Outcome: Not Progressing Problem: Urinary Incontinence Goal: Perineal skin integrity is maintained or improved Outcome: Not Progressing Assessment WNL. SB/SR w/ BBB on tele. Jose care qs. Declines q2h turns and HOB at 45 degrees for meals. Pt educated on need to maintain skin integrity and safe swallowing. 96% RA. Generalized bruising and MASD in skin folds. Tunneled PICC placed today. DC to [facility] LTC tomorrow. Images from the original note were not included. [facility] Palliative Care Transitions of Care Note Salazar Coyle : 1950 ADMIT DATE: 06/09/2022 DISCHARGE DATE: TBD PRIMARY CARE PHYSICIAN: Paige Rivera DO CODE STATUS: Full Code DISCHARGE DIAGNOSES: Principal Problem: Septic shock (CMS/HCC) (HCC) HOSPITAL COURSE: 71 yo female. Resides at facility. Presented to ER with fever and AMS. POSITIVE ESBL/E.coli bacteremia. PMH of chronic jose, afib, anemia, DM, lymphedema and obesity. PICC placed for penitentiary atbx through 06-24-2022. Full code after discussions. Palliative consulted for goals of care/code status discussion and s/o on 06-15-2022 SIGNIFICANT DIAGNOSTIC STUDIES: Labs, imaging CODE STATUS DISCUSSIONS: Full code SYMPTOM MANAGEMENT MEDICATIONS: N/a RECOMMENDED NEXT STEPS: D/c back to [facility] when medically ready. FOLLOW UP TESTING, PENDING RESULTS OR REFERRALS AT TRANSITIONAL CARE VISIT: No PENDING STUDIES: No DISPOSITION: ECF FACILITY/HOME CARE AGENCY NAME: [facility] Follow up with PCP on office to call patient. Reason for Outpatient/Home/ECF Palliative Care follow-up: N/A Opiate Prescribing OARRS was reviewed and is supportive of the care plan. SIGNED: ZINA Mcghee CNP 06/15/2022, 11:00 AM Sent updated notes to [facility] via [facility] per [facility] request. Await review and response regarding ability to accept. TCC notified. Images from the original note were not included. Care Management Progress Note - Discharge Expected Date/Time: 06/15/[address] discharge order Enter post-discharge transportation status Complete med reconciliation Request transport Case mgmt discharge readiness Expected Discharge History Expected Date/Time Set By Reviewed At 06/15/2022 Dominique Yun RN 06/14/2022 9:33 AM TCC estimate, Picc to be placed for penitentiary abx" 06/15/2022 Dominique Yun RN 06/13/2022 9:32 AM 06/15/2022 Dominique Yun RN 06/13/2022 9:31 AM TCC estimate, awaiting BCx clearance, on hep gtt" 06/15/2022 Laura Fontaine RN 06/12/2022 8:00 AM 06/12/2022 Hood Wood, DO 06/09/2022 4:01 PM 06/12/2022 Hood Wood, DO 06/09/2022 2:01 PM Length of Stay (Days): 5 GMLOS: No GMLOS Documented Patient remains on [facility] with sepsis. Positive for Ecoli/ESBL bacteremia. Repeat BC pending. ID following with continued abx Invanz. PICC line to be placed for ad terminal makeup operator abx through 06/24. Anemia, monitoring labs/lytes. Chronic jose, to discharge with per Urology. Pulmonology following for hypoxia, on RA. Nephrology for WHITLEY, signed off. New Cardiology consult for bradycardia. Therapy recommending SNF. Patient will return to [facility] when medically stable, she is ad terminal makeup operator care and a bed hold. The patient is Moderately Stable - Low risk of patient condition declining or worsening The patient's goals for the shift include rest The clinical goals for the shift include Mental status Problem: Knowledge Deficit Goal: Patient/family/caregiver demonstrates understanding of disease process, treatment plan, medications, and discharge instructions Outcome: Progressing Problem: Knowledge Deficit Goal: Patient/family/caregiver demonstrates understanding of disease process, treatment plan, medications, and discharge instructions Outcome: Progressing The patient is Moderately Stable - Low risk of patient condition declining or worsening Problem: Knowledge Deficit Goal: Patient/family/caregiver demonstrates understanding of disease process, treatment plan, medications, and discharge instructions Outcome: Progressing The patient's goals for the shift include sleep The clinical goals for the shift include improve mental status Over the shift, the patient did not make progress toward the following goals. Barriers to Referral placed to return back to [facility] via [facility] per [facility] request. Await review and response regarding ability to accept. TCC notified. Request for ICHTHYOLOGY TEACHER to double check to see if referral was sent via [facility], might have experienced trouble crossing over. Care Managment Initial Assessment Date: 06/12/2022 Patient Name: Salaazr Coyle : 1950 Patient Information Source of Information: Patient Registered Nurse Maternity Name/Contact Information: nabor Gay Cognition/Language: Confused at baseline Permission given to speak with patient career services representative/caregiver as indicated: Yes Confirmation of Payer with patient/family: Yes Payer Name: Bk Medicare : Confirmation of Primary Care Physician: Confirmed PCP Name: Elvira Rincon Primary Caregiver: Other (Comment) (facility staff) If assistance needed, confirmed caregiver ready, willing and able to care for patient at discharge: Yes Confirmed with: Smooth Living Arrangements Current Residence: Private Residence Number of Floors Number of Entry Steps: Bed/Bath Levels: Facility: Residential/Residental Care Facility Name: [facility] Plan to Return: Lives with: Other (Comment) Support Systems: Family members, Children, Spouse/significant other Activities of Daily Living Ambulation: Total Care Bathing/Dressing: Total Care Elimination/Continence/Toileting: Total Care Feeding: Assistance Who Assists with Activities of Daily Living: [facility] Instrumental Activities of Daily Living Prescription Coverage: Yes Pharmacy Used: facility provides medications Medication Management: Independent Transportation/Shopping: Assistance Provider Transportation Mode: Payer provided transport service Needs Assistance with Transportation at Discharge: No Meal Preparation: Assistance Provider Meal Prep Assistance Provider Name: [facility] Laundry/Cleaning: Assistance Provider Laundry/Cleaning Assistance Provider Name: [facility] Finances/Bill Paying: Assistance Provider Finances/Bill Payer Assistance Provider Name: [facility] Communication: (call light system) Types of Care Services/Equipment Utilized Care Services: Dialysis Type: NA Durable Medical Equipment: Oxygen (Continuous or prn) Oxygen Flow Rate: 3L Patient's Goal/Discharge Plan Patient expects to be discharged to: [facility] Discharge Planning Actions: Continue to follow Patient's Choice Rights and [employer] and Collaborative Relationships Disclosed as Indicated for Post-Acute Care: NA Interdisciplinary Team Engagement: Palliative Care Social Work Referral for: Additional Information: 71 yo female admitted to ICU for sepsis. Repeat Bcx drawn 06/11/22, initial Bcx drawn 06/09/22 + E coli. On IV solucortef, IV merrem, hep gtt and IVF. Palliative and ID following. Spoke with daughter Deidra via phone, introduced self and explained role of tcc. Pt has insurance with RX coverage, active with PCP. Pt is a resident at [facility], has been there for a few years. Is bedridden per daughter, she refuses raheem lift as it causes pain. Pt requires assistance with feeding and max assist for all ADLs. Daughter voices concerns that she is not eating/drinking at the facility as they do not assist her with meals. Daughter also voices concerns they she does not get her blood sugar checked at the facility but they give her insulin anyways. Plan for pt to return to [facility] and family is going to transition pt to another facility. Will need transportation back to the facility once medically stable. Will continue to follow for ATB plan. TCC to assist and follow as needed. Laura Fontaine RN Daughter and granddaughter at bedside. Pt more responsive and interacting with family. Pt's speech more clear after pt allowed family to swab her mouth. Pt drank juice, water and chocolate milk for family. Patient transferred out of the ICU to the hospitalist service, #1 E. coli ESBL septicemia with hypotension was on pressors #2 left-sided UPJ stone, status post cystoscopy and stent placement, urology following #3 vascular dementia #4 recent UTI Urology following for obstructing ureteral calculus & catheter management. She is POD #1 C&P left ureteral stent insertion. Per nursing staff the patient is improving this AM, now weaned off Levophed. Patient more alert and now verbalizing. Jose catheter with increase in urine output, urine peter with sediment in appearance. Afebrile overnight. Preliminary gram stains showing gram positive cocci. Recommend adding antibiotic coverage for this, as patient is currently only on Meropenem. Vancomycin previously discontinued. The patient will need definitive stone management after her infection clears, urology to coordinate. Please contact urology for any questions or concerns related to the patient. Associated attestation - Annette Bejarnao DO - 06/11/2022 9:50 PM EDT Urine culture was obtained from left kidney in OR This was mislabeled as urine from bladder Urine from KIDNEY is showing Gram Positive Cocci and Gram positive bacilli, as well as gram negative bacilli Per palliative note, daughter is wanting to change fpc facilities. Snf list left at bedside and updated primary care nurse of this. UROLOGY OPERATIVE REPORT PATIENT NAME: Salazar Coyle DATE OF : 1950 TODAY'S DATE: 06/10/2022 PreOp Dx: Left proximal ureteral calculus with acute renal failure, severe sepsis PostOp Dx: same, plus pyohydronephrosis, urethral erosion Operation: Cystoscopy Left retrograde pyelogram Fluoroscopy with diagnostic interpretation Left ureteral stent placement Jose catheter placement Surgeon: Annette Bejarano DO Steno Pool Supervisor: gigi Anesthesia: General with LMA EBL: minimal Drains: 6 fr variable length ureteral stent Left ureter Specimens: urine culture from left kidney Complications: none apparent Condition: critical to ICU Indication for Procedure: Salazar Coyle is a 71 y.o. female who presents with severe sepsis secondary to an obstructing left proximal ureteral stone. She is on 2 pressors in the ICU, has evidence of severe infection as well as acute renal failure on CKD. After having a discussion on treatment options, risks and benefits, the patient wishes to proceed forward with surgical intervention Consent was obtained from her daughter Deidra Coyle who is POA Description of Procedure: Patient was brought to the operating room and placed on the operative table. Induction per anesthesia. Receiving meropenem in the ICU therefore no additional medication was given. She was positioned in a modified dorsal lithotomy position. Due to her severe joint laxity, contractures, and chronic immobility. Patient was then prepped and draped in the normal sterile fashion, a timeout was performed and all parties were in agreement. A rigid cystoscope was inserted through the urethra and the bladder was inspected. Urethra appeared abnormal it was noted to be widely patent and eroded from indwelling catheter, pubic bone can be felt along the anterior urethra. Bladder appeared normal without masses, stones, or lesions though a full cystoscopy was not possible due to her body habitus and positioning.. Bilateral ureteral orifices are identified, normal in number, position, and orientation. Using a glidewire and open-ended catheter, LEFT ureteral orifice was cannulated. Open-ended catheter was advanced pass the obstructing stone and urine was aspirated to be sent for culture and sensitivity. It was grossly purulent. Retrograde pyelogram was performed under fluoroscopic guidance on the LEFT side. This revealed severe hydronephrosis. A wire was then advanced to the level of the kidney and open-ended catheter was removed. A 6 fr variable length stent was advanced over the wire through the cystoscope under fluoroscopic visualization. Once in position, the wire was removed. A good curl was noted in the kidney on fluoroscopy and directly visualized in the bladder. Scope was removed and 20 fr catheter was inserted without difficulty, balloon inflated with 20 ml of sterile water Patient was awakened from anesthesia and transferred to the ICU in critical condition Plan: Cont ICU care Follow up cultures Pending clinical response/recovery, she will need ureteroscopy for treatment of large ureteral stone This will have to be performed at [facility] as her body habitus is such that the cysto bed at [facility] is necessary as is the jenifer laser. Hand irrigate Jose PRN for bleeding as patient is on heparin gtt and plavix Date: 06/10/2022 Location: [facility] OR Name: Salazar CoyleDOB: 1950, Diagnosis Pre-op Diagnosis * Kidney stone [N20.0] Post-op Diagnosis * Kidney stone [N20.0] Procedures CYSTOSCOPY AND PYELOGRAM ,LEFT URETEROSCOPY, AND LEFT URETERAL STENT INSERTION [id number] - [place] CYSTO BLADDER W/URETERAL CATHETERIZATION Surgeons * Annette Bejarano - Primary Procedure Summary Anesthesia: * No anesthesia type entered * ASA: IV Estimated Blood Loss: 0 mL Drains: Urethral Catheter 20 Fr. (Active) Catheter Indications Neurogenic bladder or chronic urinary retention 06/10/22 1635 Site Assessment Bleeding;Skin intact 06/10/22 1635 Collection Container Standard drainage bag 06/10/22 1635 Securement Method Securing device 06/10/22 1635 [place]-[employer] CHG wipes 06/10/22 1635 Catheter Best Practices Drainage tube clipped to bed;Catheter secured to thigh;Tamper seal intact;Bag below bladder;Bag not on floor;Lack of dependent loop in tubing;Drainage bag less than half full 06/10/22 1635 Catheter Status Draining;Leaking 06/10/22 1635 Specimens ID Source Type Tests Collected By Collected At Frozen? Priority Lab ID A Urine, Catheter Urine URINE CULTURE (Canceled) Annette Bejarano DO 06/10/22 1616 Routine [facility]-[id number] Description: URINE FROM BLADDER FOR CULTURE AND SENSITIVITY Implants Type Name Action Serial No. Stent STENT URET 6FR 22-30CM L SUT - [id number] Implanted Staff: Marine Service Manager: Adwoa Johnson RN Software Test Engineer: Jaelyn Venegas Scrub Person: Alida Bhat MA Bindery Machine Setter/Set Up Operator: Lacy Garcia Findings: severe urethral erosion secondary in chronic indwelling catheter Mild catheter cystitis Extremely difficult cystoscopy due to body habitus and inability to properly position legs Proximal left ureteral calculus with pyohydronephrosis Complications: None; patient tolerated the procedure well. Specimens Collected: Urine for culture and sensitivity from left kidney Wound Class: Class II: Clean-Contaminated Blood Products: None Prophylactic Antibiotics: Procedure appropriate prophylactic antibiotic(s) given within 1 hour of surgical incision (two hours if receiving Vancomycin or flouroquinolone) On antibiotics on the floor Urology following for difficult catheter placement. Stat CT abdomen & pelvis reveals a 1.8 cm obstructing left UPJ with associated left hydronephrosis. Reviewed with Dr. Bejarano, considering patient is septic with leukocytosis, elevated lactic acidosis, hypotension, and acute kidney injury recommend emergent urologic surgical intervention with cystoscopy & left ureteral stent insertion as soon as possible. Scheduled for 3:30 PM. Nursing and drying supervisor cooking casing notified she will contact automobile sales consultant OR team & anesthesia. Bedside RN notified & Dr. Mckeon. Phone call placed to patient's daughter, multiple attempts with no answer and voicemail box is full. Contact patient's Jesus, informed me his daughter Deidra is legal HPOA but he consents for patient to have surgery at this time and will attempt to contact his daughter as well. documented in this encounter [facility] 06-16-2022 Hospital course Narrative Discharge Summary Salazar Coyle : 1950 ADMIT DATE: 06/09/2022 DISCHARGE DATE: 06/16/2022 PRIMARY CARE PHYSICIAN: Paige Rivera VISIT STATUS: Admission CODE STATUS: Full Code DISCHARGE DIAGNOSES: Principal Problem: Septic shock (CMS/HCC) ([facility]) HOSPITAL COURSE: 71-year-old female with severe morbid obesity, history of atrial fibrillation diabetes type 2 chronic lymphedema transferred from [facility] to [facility] because of change of mental status low-grade fever on talking to patient's daughter patient reportedly was treated with IV antibiotics for a UTI at the nursing facility. the following is a summary of her diagnosis/management during her stay here at [facility]: # Severe sepsis due to E. coli ESBL bacteremia now off of pressors - resolved now. # ESBL/Ecoli bacteremia on 06/11 - has tunneled line and will be on IV antibx till 06/24 per ID. # Positive blood cx (staph) on 06/14 - discussed with ID Dr. Fernandez who feels this is contamination. however did have positive blood cultures on 06/11. # Acute on chronic anemia - hemoglobin fluctuates here in the 7-8 range. No need for transfusion at this time as above 7. 7.5 today (was 8.7? No evidence of bleeding currently). SNF can repeat cbc outpatient. # Left UPJ calculus and hydronephrosis status post cystoscopy and stent placement in the left ureter per Urology. She will need definitive stone management after her infection clears per urology (states they will coordinate this). Urology signed off. # Chronic jose catheter due to neurogenic bladder - per urology, patient to discharge with catheter to straight drain. Will need follow up with Urology outpatient for catheter management and UTI prevention (they will coordinate after she is discharged). # Acute hypoxia - followed by pulmonary. Resolved and weaned off of NC O2 now. Currently on RA. Pulmonary signed off. # Bradycardia - per RN on 06/14, HR was 30's-40's overnight. This am was in the 50's and has slow A.fib. NOT on any rate controlling meds. Cardiology saw and felt this is due to PHOEBE/vagally mediated and asymptomatic Avoid HR slowing meds. They state No PPM indications and to Treat underlying obesity, PHOEBE/OHVS. Pulmonary and well as myself spoke with patient about this but she continues to refuse bipap. States she cannot handle it. # Type 2 diabetes which is uncontrolled with diabetic neuropathy - on lantus/ISS. continue same on discharge: note: lantus decreased to 10 units here. Will continue that on discharge. BG was 193 so may need tweaking at SNF (defer to SNF doctor). Spoke with daughter deidra, who is concern that patient not on diabetic diet at fpc and also they are not checking sugars because patient refusing finger prick. 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 # History of paroxysmal atrial fibrillation - was on IV Heparin here but now discontinued and switched to p.o. apixaban (note: baby ASA was dc'd due to being on apixaban now) # WHITLEY due to ATN - creat improving. Nephrology is following and states Ok for discharge planning from renal standpoint, outpatient BMP ordered and needs close follow up with nephrology in 1 week # Chronic diastolic heart failure - compensated. # Severe morbid obesity with sleep apnea and noncompliant with PAP therapy (refusing) # Thrombocytopenia-improving now off of heparin # HLD - on lipitor # Right lower lobe lung nodule - per pulmonary, repeat CT scan in 3 months outpatient (defer to PCP vs Pulmonary outpatient) # Vascular dementia/Alzheimer's - continue/resumed aricept on discharge Physical exam: Respiratory: Normal respiratory effort. Clear to auscultation, bilaterally without Rales/Wheezes/Rhonchi. Cardiovascular: RRR Abdomen: Soft, non-tender, non-distended with normal bowel sounds. No rebound or guarding. Called and spoke with daughter at length today. She has been updated. SIGNIFICANT DIAGNOSTIC STUDIES: As above CONSULTANTS: Palliative care Pulmonary ID Urology Nephrology Cardiology RECOMMENDED NEXT STEPS: DISCHARGE MEDICATIONS: Medication List START taking these medications apixaban 5 MG tablet Commonly known as: Eliquis Take 1 tablet (5 mg) by mouth 2 times daily for 8 doses. ertapenem 1,000 mg in sodium chloride 0.9 % 50 mL IVPB Infuse 1,000 mg into a venous catheter Every 24 hours for 8 days. ferrous sulfate 325 (65 Fe) MG EC tablet Take 1 tablet (325 mg) by mouth daily (with breakfast). Do not crush, chew, or split. Insulin Lispro 100 UNIT/ML solution injection Commonly known as: Humalog Inject 0-18 Units under the skin 4 times daily (before meals and nightly). CHANGE how you take these medications insulin glargine 100 UNIT/ML injection Commonly known as: Lantus Inject 10 Units under the skin Nightly. What changed: See the new instructions. CONTINUE taking these medications ascorbic acid 250 MG tablet Commonly known as: Vitamin C atorvastatin 20 MG tablet Commonly known as: Lipitor baclofen 5 MG tablet Commonly known as: Lioresal donepezil 10 MG tablet Commonly known as: Aricept lisinopril 10 MG tablet Oyster Shell Calcium/D 500-5 MG-MCG tablet senna-docusate 8.6-50 MG tablet Commonly known as: Helena-Colace STOP taking these medications acetaminophen 325 MG tablet Commonly known as: Tylenol aluminum-magnesium hydroxide 200-200 MG/5ML suspension aspirin 81 MG chewable tablet calcium carbonate 500 MG chewable tablet Commonly known as: Tums guaiFENesin 100 MG/5ML liquid Commonly known as: Robitussin magnesium hydroxide 800 MG/5ML suspension Commonly known as: Milk of Magnesia ondansetron 4 MG tablet Commonly known as: Zofran oxyCODONE 5 MG immediate release capsule Commonly known as: Oxy-IR sertraline 50 MG tablet Commonly known as: Zoloft Where to Get Your Medications Information about where to get these medications is not yet available Ask your nurse or doctor about these medications apixaban 5 MG tablet ertapenem 1,000 mg in sodium chloride 0.9 % 50 mL IVPB ferrous sulfate 325 (65 Fe) MG EC tablet insulin glargine 100 UNIT/ML injection Insulin Lispro 100 UNIT/ML solution injection DIET: Adult diet Easy to Chew; 4 carb choices (60 gm/meal) ACTIVITY: Up with assist COMPLEXITY OF FOLLOW UP: [] Moderate Complexity: follow up within 7-14 calendar days (87667) [] Severe Complexity: follow up within 7 calendar days ([id number]) FOLLOW UP TESTING, PENDING RESULTS OR REFERRALS AT TRANSITIONAL CARE VISIT: [x] Yes needs follow up of pulmonary nodule, repeat cbc outpatient [] No PENDING STUDIES: DISPOSITION: Skilled Facility FACILITY/HOME CARE AGENCY NAME: [facility] Follow up with No follow-up provider specified. Follow up with PCP /consultants. INSTRUCTIONS TO MA/SW: Please call patient on day after discharge (must document patient contacted within 2 business days of discharge). FOLLOW UP QUESTIONS FOR MA/SW: 1. Did you get medications filled and taking them as instructed from discharge? 2. Are you following your discharge instructions from your hospital stay? 3. Please confirm patient is scheduled for a follow up appointment within the above time frame. DISCHARGE TIME: was 39 minutes SIGNED: ELISE PARK MD 06/16/2022, 10:30 AM documented in this encounter [facility] 06-15-2022 Consult note Associated Order (s): IP CONSULT TO PALLIATIVE CARE Please see full consult on 06-09 by me. Associated Order(s): IP CONSULT TO CARDIOLOGY [facility] [place] [facility] Consult Note Reason for Consult/Chief Complaint: Bradycardia Consulting MD: Dr. Park History of Present Illness: Salazar Coyle is a 71 y.o. 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 On telemetry she was found to have bradycardia. We are consulted for evaluation. Salazar states that she is feeling fine. No complaints or chest pain or SOB, no dizziness or syncope. On telemetry she is in sinus bradycardia with HR during wake time ~50's and during sleep time 40's with PACs, no significant pause or AV block. Past Medical History: Past Medical History: Diagnosis Date A-fib (CMS/HCC) (HCC) Anemia Diabetes (HCC) Lymphedema Obesity Past Surgical History: History reviewed. No pertinent surgical history. Family History: No family history on file. Social History: Social History Tobacco Use Smoking status: Never Smokeless tobacco: Never Vaping Use Vaping Use: Never used Substance Use Topics Alcohol use: Never Drug use: Never Medications: apixaban, 5 mg, Oral, BID atorvastatin, 20 mg, Oral, Daily baclofen, 5 mg, Oral, BID ertapenem, 1,000 mg, IntraVENous, q24h [Held by provider] gabapentin, 100 mg, Oral, BID insulin glargine, 10 Units, SubCUTAneous, Nightly insulin lispro, 0-18 Units, SubCUTAneous, 4x daily AC & HS lisinopril, 10 mg, Oral, Once [START ON 06/15/2022] lisinopril, 20 mg, Oral, Daily pantoprazole, 40 mg, Oral, Nightly Or pantoprazole, 40 mg, IntraVENous, Nightly sodium chloride 0.9%, 5-40 mL, IntraVENous, 2 times per day Allergies: Patient has no known allergies. Reviewed Review of Systems: All other systems were reviewed and are negative other than as noted in the HPI. Physical Examination: Vitals: Blood pressure (!) 157/71, pulse 51, temperature 35.8 C (96.4 F), temperature source Temporal, resp. rate 20, height 5' 6" (1.676 m), weight 289 lb (131 kg), SpO2 100 %. Intake/Output Summary (Last 24 hours) at 06/14/2022 1230 Last data filed at 06/14/2022 0652 Gross per 24 hour Intake 582.58 ml Output 450 ml Net 132.58 ml Wt Readings from Last 3 Encounters: 06/10/22 289 lb (131 kg) Neck: difficult to assess for JVD due to large neck Respiratory: Lungs are no. No rales or wheezes. Respiratory effort is normal and symmetrical bilaterally; Good air movement bilaterally. Heart: RRR; Normal S1 and S2. no murmur; No rub; no gallop. Vasc: Peripheral pulses 2+. Abdomen: Normal BS, soft, non-tender, non-distended; no hepatomegaly. Extremities/Skin: nonpitting LE edema Musculoskeletal: Head - normocephalic. Neck - supple Laboratory Tests: Results from last 7 days Lab Units 06/14/22 0603 06/13/22 0600 06/12/22 1219 06/12/22 0312 06/11/22 0322 06/10/22 0321 WBC AUTO 10*3/uL 11.4* 8.1 -- 11.5* 12.7* 11.4* HEMOGLOBIN g/dL 8.2* 8.1* 7.8* 6.9* 8.4* 8.8* HEMATOCRIT % 26.0* 25.6* 23.6* 21.4* 26.6* 28.7* MCV fL 81.5 81.2 -- 79.2* 80.5 81.9 PLATELETS AUTO 10*3/uL 81* 51* -- 46* 43* 67* Lab Results Component Value Date GLUCOSE 131 (H) 06/14/2022 CALCIUM 7.9 (L) 06/14/2022 NA 143 06/14/2022 K 3.5 06/14/2022 CO2 27 06/14/2022 CL 114 (H) 06/14/2022 BUN 61 (H) 06/14/2022 CREATININE 1.05 (H) 06/14/2022 Lab Results Component Value Date HGBA1C 7.6 (A) 03/08/2021 Lab Results Component Value Date CKTOTAL 106 06/09/2022 TROPONINI 0.037 (H) 06/09/2022 Assessment/Plan Bradycardia: sinus, due to PHOEBE/vagally mediated and asymptomatic Avoid HR slowing meds No PPM indications Treat underlying obesity, PHOEBE/OHVS AF: paroxysmal, in sinus rhythm, continue apixaban 5 mg bid Sepsis: per primary team Poor prognosis Ok for discharge from cardiology standpoint Eduard Montemayor MD, , FACC, FASE DATE of SERVICE: 06/14/2022 Associated Order(s): IP CONSULT TO UROLOGY Images from the original note were not included. Patricia Avilez, ZINA - HAND I THERMAL CUTTER 06/10/2022 at 12:02 PM [facility] Urology Inpatient Consultation PATIENT NAME: Salazar Coyle DATE OF : 1950 ADMISSION DATE: 06/09/2022 11:12 AM TODAY'S DATE: 06/10/2022 Reason for Consult: Difficult Jose catheter placement. Provider requesting consultation: Peter Carbone APRN HISTORY OF PRESENT ILLNESS: Ms. Coyle is a 71 y.o. female was admitted for severe sepsis. Past medical history of severe morbid obesity, atrial fibrillation, type 2 diabetes, chronic lymphedema, chronic Jose catheter with neurogenic bladder. Presented to [facility] with altered mental status from her extended care facility. Per the patient's daughter she was recently treated with IV antibiotics for UTI at the nursing facility. Patient unable to provide additional history, but per her daughter she had hospitalization 1 year ago for acute kidney injury requiring hemodialysis, but did have Vas-Cath removed prior to discharge and has been having catheter exchange at [facility] since. Currently admitted to the ICU due to sepsis work-up concern for urinary source at this time as primary source. Urology consulted regarding chronic Jose catheter and difficult placement. She is not previously known to this urology group. Previously established at [facility] urology group for history of neurogenic bladder, recurrent bladder infections, and urinary retention. Has had chronic Jose catheter since 2017. Patient unable to provide history today. Alert and oriented to self only, otherwise unable to provide history. Nursing staff reports that she has been intermittently lethargic. They are uncertain as the last time the patient's catheter was exchanged. She remains hypotensive requiring fluid resuscitation and albumin. Low-grade fever overnight. Current catheter in place is a 20 [place] Islander with tea colored urine in bag. Review of Systems Constitutional: Negative for chills and fever. Genitourinary: Positive for difficulty urinating. Negative for decreased urine volume, dysuria, flank pain, frequency, hematuria and urgency. Past Medical History: Past Medical History: Diagnosis Date A-fib (CMS/HCC) (HCC) Anemia Diabetes (HCC) Lymphedema Obesity Past Surgical History: History reviewed. No pertinent surgical history. Current Medications: @MEDSCURRENTMD@ Prior to Admission medications Medication Sig Start Date End Date Taking? Authorizing Provider baclofen (Lioresal) 5 MG tablet Take 1 tablet by mouth 2 times daily. 04/14/21 Yes Historical Provider, insulin glargine (Lantus) 100 UNIT/ML injection 60 units 04/13/21 Yes Historical Provider, senna-docusate (Helena-Colace) 8.6-50 MG tablet Take 100 tablets by mouth Every 24 hours. 04/06/21 Yes Historical ProviderMD acetaminophen (Tylenol) 325 MG tablet Take 975 mg by mouth. Historical Provider, aluminum-magnesium hydroxide 200-200 MG/5ML suspension Take 30 mL by mouth every 4 hours as needed for heartburn. Historical Provider, ascorbic acid (Vitamin C) 250 MG tablet Take 250 mg by mouth daily. Historical Provider, aspirin 81 MG chewable tablet Chew 81 mg daily. Historical Provider, atorvastatin (Lipitor) 20 MG tablet Take 20 mg by mouth daily. Historical Provider, calcium carbonate (Tums) 500 MG chewable tablet Chew 500 mg daily. Historical ProviderMD Calcium Carbonate-Vitamin D (Oyster Shell Calcium/D) 500-5 MG-MCG tablet Take 1 tablet by mouth daily. Historical ProviderMD donepezil (Aricept) 10 MG tablet Take 10 mg by mouth Nightly. Historical Provider, guaiFENesin (Robitussin) 100 MG/5ML liquid Take 10 mg by mouth every 4 hours as needed for cough. Historical Provider, lisinopril 10 MG tablet Take 10 mg by mouth daily. Historical Provider, magnesium hydroxide (Milk of Magnesia) 800 MG/5ML suspension Take 30 mL by mouth Daily as needed for constipation. Historical Provider, ondansetron (Zofran) 4 MG tablet Take by mouth every 8 hours as needed. Historical ProviderMD oxyCODONE (Oxy-IR) 5 MG immediate release capsule Take 5 mg by mouth. Historical Provider, sertraline (Zoloft) 50 MG tablet Take 50 mg by mouth daily. Historical Provider, Allergies: Patient has no known allergies. Social History: Social History Socioeconomic History Marital status: Spouse name: Not on file Number of children: Not on file Years of education: Not on file Highest education level: Not on file Occupational History Not on file Tobacco Use Smoking status: Never Smokeless tobacco: Never Vaping Use Vaping Use: Never used Substance and Sexual Activity Alcohol use: Never Drug use: Never Sexual activity: Not Currently Other Topics Concern Not on file Social History Narrative Not on file Social Determinants of Health Financial Resource Strain: Not on file Food Insecurity: Not on file Transportation Needs: Not on file Physical Activity: Not on file Stress: Not on file Social Connections: Not on file Intimate Partner Violence: Not on file Housing Stability: Not on file Family History: No family history on file. PHYSICAL EXAM: VITALS: BP (!) 90/36 Pulse 108 Temp 36.5 C (97.7 F) (Axillary) Resp 18 Ht 5' 6" (1.676 m) Wt 289 lb (131 kg) SpO2 100% BMI 46.65 kg/m Physical Exam Vitals and nursing note reviewed. Constitutional: Appearance: Normal appearance. She is obese. She is ill-appearing. Abdominal: General: There is no distension. Palpations: There is no mass. Tenderness: There is abdominal tenderness. There is no right CVA tenderness or left CVA tenderness. Neurological: Mental Status: She is alert. 24HR INTAKE/OUTPUT: I/O last 3 completed shifts: In: 3817 (29.1 mL/kg) [I.V.:1817 (13.9 mL/kg); IV Piggyback:1999] Out: 410 (3.1 mL/kg) [Urine:410 (0.1 mL/kg/hr)] Weight: 131.1 kg DATA: CBC: Recent Labs 06/09/22 1132 06/09/22 1640 06/10/22 0321 WBC 10.2 9.3 11.4* HGB 9.5* 7.6* 8.8* HCT 30.1* 23.8* 28.7* PLT 116* 107* 67* BMP: Recent Labs 06/09/22 1640 06/10/22 0321 06/10/22 1114 NA 138 140 142 K 4.5 3.5 3.8 CL 109* 109* 109* CO2 23 19* 18* BUN 47* 49* 52* CREATININE 2.11* 2.40* 2.57* GLUCOSE 283* 219* 209* INR: No results for input(s): INR in the last 72 hours. Urine Culture: No components found for: LABURIN Radiology Review: XR chest 1 view Narrative: [facility] 1950 [id number] Exam Date/Time: 06/10/2022 04:49 Procedure: XR CHEST 1 VIEW Ordering Provider: MCKEON MASROOR Reason For Exam: SEPSIS PORTABLE CHEST CLINICAL INDICATION: SEPSIS TECHNIQUE: Portable AP COMPARISON: None FINDINGS: Pulmonary vascular congestion without overt edema. No focal consolidation. No pleural effusions or pneumothorax. The cardiac silhouette is mildly enlarged. Calcification of the thoracic aortic is noted. The osseous structures are unremarkable. Impression: Mild cardiomegaly with vascular congestion. Report Dictated on Electronically Signed By: Bashir Barnes Electronically Signed Date/Time: 06/10/2022 4:44 AM EST IMPRESSION/PLAN: This is a 71-year-old female with urologic complaint of chronic urinary retention, difficult catheter placement, and sepsis secondary to urinary tract infection. Urology has been asked to see this patient for catheter exchange. After several attempts a 18 [place] Islander coud catheter was successfully inserted into the patient's urethra, return of yellow urine. Chronic urinary retention Neurogenic bladder Urinary tract infection - Please maintain jose catheter to straight drain. Do not remove catheter, she will be discharged with this. - CT abd/pelvis now. - Urinalysis & urine culture now. - Continue broad spectrum antibiotics until final C&S return. Agree with consultation to ID. - Continue to trend CBC, as WBC 11.4. - Continue to trend BMP, as creatinine 2.40 (2.11). - Continue to trend lactic acid, 4.7 (1.9). - Q2hr I&O. - Vital signs per nursing protocol. - She will need to follow up with urology outpatient for catheter management & UTI prevention. Will coordinate after she is discharged. - Urology to follow peripherally. Thank you for this consultation and allow for participation in this patient's care. Please call with questions concerns or changes in patient's urologic status. -- Patricia Avilez APRN - HAND I THERMAL CUTTER on 06/10/22 at 12:02 PM An electronic signature was used to authenticate this note. On this date 06/10/2022 I have spent 75 minutes reviewing previous notes, test results and face to face with the patient discussing the diagnosis and importance of compliance with the treatment plan as well as documenting on the day of the visit. Associated attestation - Annette Bejarano DO - 06/10/2022 5:40 PM EST Images from the original note were not included. Attending Physician's Attestation I have personally seen and evaluated the patient and agree with the HAND I THERMAL CUTTER's assessment and plan. Patient critically ill in ICU at this time Chronic debility/immobility for 5-6 years CTAP with obstructing proximal ureteral calculus, likely source of infection Needs emergent cysto/stent placement Not candidate for PNT due to hep gtt, plavix, as well as habitus Please do not hesitate to reach out to the urology team with additional questions or concerns Annette Bejarano DO [facility] Images from the original note were not included. Palliative Care Initial Consult Chief Complaint: Salazar Coyle is a 71 y.o. female with chief complaint of AMS,fevers. Palliative Care is actively following. Assessment/Plan Goals of care Pt is not alert and oriented, no family at bedside FULL code fully discussed and family does wish to have this remain Placed call to spouse and daughter. No answer from spouse - daughter Deidra [phone] reported she is the healthcare POA - will bring in documents to support this. Pt lives penitentiary at [facility] - would be a return to facility. Daughter does wish to talk with CM/SW about maybe moving her to another Sepsis/bacteremia +Ecoli Meropenum Q 12 Levophed gtt Jose catheter placement DM Overall poor compliance for BG checks and insulin at facility Lengthly discussion with daughter about this S/s insulin Scheduled Lantus Management per primary WHITLEY Hx of dialysis April of 2021 - nothing since Avoid nephrotoxic medications including contrast dye. Nephrology has been consulted Palliative Care Encounter Palliative will continue to follow for ongoing monitoring of progression of Fever and AMS will continue to evaluate test results related to UTI , medication effectiveness for Fever, response to treatment of UTI Ongoing counseling of patient and family regarding diagnoses of UTI , Determining prognosis in serious illness of DM and noncompliance Total of 80 minutes spent on this encounter including Chart review, Patient visit and exam, Documentation in EHR, Care coordination, Communicating with primary attending or other consultants, and Counseling and educating patient/family/caregiver. Discharge planning: Patient meets criteria for general inpatient hospice care including the following: N/A - Palliative Care Patient Referrals to: None Discussed patient and the plan of care with the other interdisciplinary team (IDT) members of Palliative Care Team, and with Family and Floor Nurse I have discussed the patient's case and plan of care with my collaborating physician Dr. De Leon Subjective: Hospital days prior to consult: 1 Subjective/Events 71 year female from [facility] presented to the ER for fevers and AMS. Pt admitted for sepsis urinary source, WHITLEY. Medical history frequent UTI's - chronic jose, Afib,anemia,DM, lymphedema and obesity. Palliative medicine was consulted for goals of care and code conversation. Pt is not alert and oriented - unable to provide any information at this visit. Placed call to spouse - number is busy. Placed call to daughter Deidra - who tells me that she is over her healthcare. She will bring in the documents. Daughter reported that pt has had frequent UTI's. Pt also has long hx of noncompliance with her DM and BG checks. Discussed with Deidra that with her frequent UTI's there would certainly come a time that the anbx will no longer work and at that would be a time we would be talking more about hospice and end of life care. Discussed full code status in detail. 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 Pt will remain a full code. Palliative will continue to follow along this admission Pain Assessment (If Pain Scale >0) No pain Goals of care:Support for Family/Caregiver and Continue Current Management Advance Directives: No Order Surrogate: Spouse and Child Prognosis: unknown Spiritual assessment: No spiritual distress identified Bereavement and grief: Grief Issues Not Identified Past Medical History: Diagnosis Date A-fib (CMS/HCC) (HCC) Anemia Diabetes (HCC) Lymphedema Obesity History reviewed. No pertinent surgical history. No family history on file. Unable to obtain family history due to altered mental status No Known Allergies Review of Systems ROS: See palliative care ROS/ESAS below; All other systems were reviewed and are negative. Monroe Symptom Assessment Score Monroe Score Pain Score 0 Tiredness Score 5 Nausea Score 0 Depression Score 0 Anxiety Score 0 Drowsiness Score 1-2 Anorexia Score (0= eating well, 10= not eating) Wellbeing Score (10= worst sense of well-being) 5 Constipation 0 Dyspnea Score (0= no shortness of breath) 2 FLACC Scale (For Pain Assessment of the Non-Verbal Patient) Face: 0- no particular expression Legs: 0- normal position or relaxed Activity: 0-lying quietly, moves easily Cry: 0-no cry Consolability:0-content, relaxed Total Score: 0 Assessed by: provider. Social history: status: no Marital status: Living status: [facility] Work history: Advance Care Planning: The patient has capacity to make healthcare and advanced care planning decisions No The patient's identified surrogate decision maker is Spouse and Child. Discussion participants: myself and daughter Deidra Interventions reviewed: Resuscitation procedures (CPR), Mechanical ventilator support, and Diagnostic testing Advance Care Planning Documents: Healthcare Power of Sheet Metal Supervisor: Financial Power of Sheet Metal Supervisor: Living Will: Code Status: Full Code Family Meeting: Participants: Family meeting was held to discuss: Objective: Physical Exam BP (!) 90/36 Pulse 108 Temp 36.5 C (97.7 F) (Axillary) Resp 18 Ht 1.676 m (5' 6") Wt 131 kg (289 lb) SpO2 100% BMI 46.65 kg/m Physical Exam Vitals reviewed. Constitutional: General: She is sleeping. Appearance: She is morbidly obese. She is ill-appearing. Interventions: Nasal cannula in place. HENT: Head: Atraumatic. Nose: Nose normal. Eyes: General: Right eye: No discharge. Left eye: No discharge. Cardiovascular: Rate and Rhythm: Tachycardia present. Pulmonary: Effort: Pulmonary effort is normal. Abdominal: General: Bowel sounds are normal. Genitourinary: Comments: jose Musculoskeletal: Cervical back: Normal range of motion. Right lower leg: Edema present. Left lower leg: Edema present. Skin: General: Skin is warm and dry. Neurological: Mental Status: She is disoriented. Current Medications: Inpatient medications reviewed: yes Home medications reviewed: yes OARRS Reviewed: reviewed 24 Hour PRN Meds: reviewed Results/Verification of Data Review Objective data reviewed (be specific which labs, imaging reports with dates reviewed): Reviewed all imaging, labs, vitals from 3-10 to date Data in Support of Terminal Illness: Is patient hospice appropriate? no Transition Note Initiated: yes. Associated Order(s): PHARMACY TO DOSE VANCO Vancomycin therapy has been discontinued by Dr. Sims on 06/10. Thank you for the consult. Pharmacy signing off for vancomycin dosing. Mickey Singletary RPh, PharmD Date: 06/10/22 Time: 9:48 AM Associated Order(s): IP CONSULT TO INFECTIOUS DISEASES Images from the original note were not included. [facility] - Infectious Diseases Attending Consult Note Reason for Consult: Sepsis, E coli bacteremia History of Present Illness: This is a 71 y/o woman admitted from [facility] via ambulance after being lethargic and less responsive for the past few days with low grade fever. She was noted to be encephalopathic in ED with 100.1, hypotensive at 88/41, and oxygenating well on room air. She had BC and urine culture sent (from [facility], [place]) and the BC x2 are both growing E coli. She is not able to provide a history but is noted by extensive chart review to have been in here with diabetic foot infection/osteo in 2020. She has had several urinary tract infections as well as noted to be morbidly obese (noted at BMI over 60 in 2020 but now noted to have BMI of 47). She was in an out of SNF for several years but now there chronically with history of very poor medical compliance with DM 2 (requiring insulin), diet, and poor hygiene, with declining mental status and lymphedema as well as CKD. We are consulted for antibiotic management. It is noted that she remains hypotensive with minimal dark urine output with rising Cr since admission from 2.11 to 2.4. with rising Lactic acid to 4.7 Platelets have decreased from 218 a year ago to 107 and Hb is now 7.6 with WBC of 9.3 (usually around 5) Past Medical History: Past Medical History: Diagnosis Date A-fib (CMS/HCC) (HCC) Anemia Diabetes (HCC) Lymphedema Obesity Past Surgical History: History reviewed. No pertinent surgical history. Current Medications: Current Facility-Administered Medications Medication Dose Route Frequency Provider Last Rate Last Admin [Held by provider] apixaban (Eliquis) tablet 5 mg 5 mg Oral BID Masroor Mckeon, MD atorvastatin (Lipitor) tablet 20 mg 20 mg Oral Daily Franchesca Mckeon MD baclofen (Lioresal) tablet 5 mg 5 mg Oral BID Franchesca Mckeon MD dextrose 5 % infusion 100 mL/hr IntraVENous PRN Franchesca Mckeon MD dextrose 50 % solution 12.5 g 12.5 g IntraVENous PRN Franchesca Mckeon MD [Held by provider] gabapentin (Neurontin) capsule 100 mg 100 mg Oral BID Franchesca Mckeon MD glucagon (human recombinant) injection 1 mg 1 mg IntraMUSCular PRN Franchesca Mckeon MD glucose oral gel 15 g 15 g Oral PRN Franchesca Mckeon MD heparin 25,000 units in dextrose 5% 250mL infusion (premix) 5-30 Units/kg/hr IntraVENous Continuous ZINA Davila MANAGER PRESENTATION 11.3 mL/hr at 06/10/226 8.6 Units/kg/hr at 06/10/22405 heparin injection 2,000 Units 2,000 Units IntraVENous PRN Peter AcZINA barboza - MANAGER PRESENTATION heparin injection 4,000 Units 4,000 Units IntraVENous PRN Peter Carbone APRN - MANAGER PRESENTATION insulin glargine (Lantus) injection 10 Units 10 Units SubCUTAneous Nightly Peter AcZINA barboza - MANAGER PRESENTATION 10 Units at 06/09/222107 Insulin Lispro (Humalog) injection 0-18 Units 0-18 Units SubCUTAneous q6h Franchesca Mckeon MD meropenem (Merrem) 1,000 mg in sodium chloride 0.9 % 100 mL IVPB 1,000 mg IntraVENous q12h Jaylyn Sims MD ondansetron (Zofran) injection 4 mg 4 mg IntraVENous q6h PRN Franchesca Mckeon MD pantoprazole (ProtoNix) EC tablet 40 mg 40 mg Oral Nightly Franchesca Mckeon MD Or pantoprazole (ProtoNix) injection 40 mg 40 mg IntraVENous Nightly Franchesca Mckeon MD 40 mg at 06/09/222107 perflutren lipid microspheres (Definity) injection 1.65 mg 1.65 mg IntraVENous Once PRN Franchesca Mckeon MD sodium bicarbonate 150 mEq in sterile water 1,000 mL infusion 125 mL/hr IntraVENous Continuous Peetr Acierno, METHOD CONSULTANT - MANAGER PRESENTATION 125 mL/hr at 06/10/22 0634 125 mL/hr at 06/10/22 0634 sodium chloride 0.9 % infusion 5-250 mL/hr IntraVENous PRN Franchesca Mckeon MD sodium chloride 0.9% (NS) flush 5-40 mL 5-40 mL IntraVENous 2 times per day Franchesca Mckeon MD 10 mL at 06/10/22 0844 sodium chloride 0.9% (NS) flush 5-40 mL 5-40 mL IntraVENous PRN Franchesca Mckeon MD Allergies: No Known Allergies Social History: Social History Socioeconomic History Marital status: Spouse name: Not on file Number of children: Not on file Years of education: Not on file Highest education level: Not on file Occupational History Not on file Tobacco Use Smoking status: Never Smokeless tobacco: Never Vaping Use Vaping Use: Never used Substance and Sexual Activity Alcohol use: Never Drug use: Never Sexual activity: Not Currently Other Topics Concern Not on file Social History Narrative Not on file Social Determinants of Health Financial Resource Strain: Not on file Food Insecurity: Not on file Transportation Needs: Not on file Physical Activity: Not on file Stress: Not on file Social Connections: Not on file Intimate Partner Violence: Not on file Housing Stability: Not on file Family History: No family history on file. Review of Systems: Review of Systems Unable to perform ROS: Mental status change Vitals: Patient Vitals for the past 24 hrs: BP Temp Temp src Pulse Resp SpO2 Height Weight 06/10/22 09 (!) -- -- 108 18 100 % -- -- 06/10/22 09 -- -- -- 91 17 100 % -- -- 06/10/22 0802 (!) 93/39 -- -- 89 17 100 % -- -- 06/10/22 08 (!) -- -- 85 19 100 % -- -- 06/10/22 07 -- -- -- 85 20 100 % -- -- 06/10/22 0603 (!) 91/35 -- -- 78 18 99 % -- -- 06/10/22 06 -- -- -- 81 22 99 % -- -- 06/10/22 0503 (!) 92/46 -- -- 87 19 99 % -- -- 06/10/22 0500 -- -- -- 78 23 99 % -- -- 06/10/22 0400 -- -- -- 94 18 100 % -- -- 06/10/22 0330 -- 37.6 C (99.7 F) Axillary -- -- -- -- -- 06/10/22 0300 -- -- -- 92 21 100 % -- -- 06/10/22 0200 -- -- -- 94 22 100 % -- -- 06/10/22 0100 -- -- -- 94 22 100 % -- -- 06/10/22 0003 (!) 111/49 -- -- 97 22 100 % -- -- 06/10/22 0000 -- -- -- 100 21 100 % -- -- 06/09/22 2330 -- 37.2 C (98.9 F) Axillary -- -- -- -- -- 06/09/22 2303 97/57 -- -- (!) 117 24 100 % -- -- 06/09/22 2300 -- -- -- (!) 112 25 98 % -- -- 06/09/22 2205 126/52 -- -- 108 24 98 % -- -- 06/09/22 2103 92/70 -- -- (!) 124 21 98 % -- -- 06/09/222036 113/84 -- -- 100 21 99 % -- -- 06/09/22 2015 -- 37.1 C (98.8 F) Axillary -- -- -- -- -- 06/09/22 1903 (!) 99/43 -- -- 80 15 97 % -- -- 06/09/22 1600 -- 37.4 C (99.3 F) Axillary -- -- -- -- -- 06/09/22 1334 (!) 98/40 -- -- 88 16 98 % -- -- 06/09/22 1156 (!) 37.8 C (100.1 F) Tympanic 87 15 96 % 1.676 m (5' 6") 131 kg (289 lb) 06/09/22 1100 -- -- -- -- -- -- 1.575 m (5' 2") -- Physical Exam: Physical Exam Vitals and nursing note reviewed. Constitutional: General: She is in acute distress. Appearance: She is ill-appearing and toxic-appearing. She is not diaphoretic. Comments: Patient is arousable but very lethargic and just mumbles. Very weak and does not move hands or feet. Does open mouth for me but no upper teeth noted with poor dentition No thrush noted on limited exam. Not coughing or displaying pain On NC oxygen with adequate oxygenation Noted to have BP of 10/36 with HR of 85 Making scant dark chavarria urine per jose 2 benign peripheral IV's with poor access Skin is edematous and there is dry skin patches on both legs HENT: Head: Comments: Superficial skin tear R scalp Nose: No congestion or rhinorrhea. Mouth/Throat: Mouth: Mucous membranes are moist. Pharynx: No oropharyngeal exudate. Eyes: Extraocular Movements: Extraocular movements intact. Conjunctiva/sclera: Conjunctivae normal. Pupils: Pupils are equal, round, and reactive to light. Neck: Comments: Thick neck with no masses felt but has edema and mild erythema over R supraclavicular area with 2 scabs (~3 mm each) within area of redness Cardiovascular: Comments: Very distant heart tones without murmur Pulmonary: Comments: Diminished BS with diminished inspiration- limited due to morbid obesity and weakness Abdominal: Palpations: Abdomen is soft. Tenderness: There is no right CVA tenderness or left CVA tenderness. Comments: Morbidly obese with very large panniculus without lesions noted. Seems to have fullness and tenderness only to deep probing in RUQ Genitourinary: Comments: Limited exam without lesions noted and jose cath in place No vaginitis noted No open bed sores but some patches of redness - noted in media With a superficial skin tear Skin: Findings: Lesion present. Comments: No open sores of feet nor redness - very deformed with missing 5th R toe Legs are flacid Neurological: Mental Status: She is disoriented. Motor: Weakness present. Labs: Recent Labs 06/09/22 1132 06/09/22 1640 06/10/22 0321 NA 138 138 140 K 4.3 4.5 3.5 CL 109* 109* 109* CO2 25 23 19* BUN 49* 47* 49* CREATININE 2.27* 2.11* 2.40* GLUCOSE 221* 283* 219* CALCIUM 8.4 7.8* 8.2* PROT 6.1* 6.0* 5.6* BILITOT 1.0 0.9 1.3 ALKPHOS 120 64 150* AST 24 23 24 ALT 11 9 11 PROCAL -- 17.91* -- Recent Labs 06/09/22 1132 06/09/22 1640 06/10/22 0321 WBC 10.2 9.3 11.4* HGB 9.5* 7.6* 8.8* HCT 30.1* 23.8* 28.7* PLT 116* 107* 67* LYMPHOPCT 3.1* 6* 3* MONOPCT 3.1 3 -- BASOPCT 0.2 -- -- NEUTROABS 9.5* -- -- Micro: No results for input(s): COVID19 in the last 72 hours. Lines: 2 tenuous peripheral IV's- Radiography/Echo/Other: CXR with cardiomegaly and R hemidiaphragm elevation With poor quality film due to lack of inspiratory effort and AP film Antimicrobials,Start/End Dates: Meropenem and Vanc Impression & Plan: 1) Severe Sepsis with encephalopathy, WHITLEY (cr 2.4), and lactic acidosis (4.9) hypotension, thrombocytopenia 107 (67 on admission) 2) ESBL positive E. Coli bacteremia 2/2 BC from 06/09 admission Source uncertain as urine culture is pndg and was obtained from a chronic jose that nurses can't change due to difficulty replacing (BMI of 47) and she has a unclear abdominal exam 3) WHITLEY- history of CKD with baseline Cr of 1.42, now increasing since admission to 2.4 And little urine output. (BP 90/36 4) encephalopathy - noted to have history of dementia but now is arousable but confused and doesn't follow commands 5). ?abdominal pain - normal LFT but new slight alk phos elevation (64 to 150) and bili elevation 0.9 to 1.3 6) multiple co-morbidities of cognitive & functional decline, DM 2 - insulin requiring, CKD, PAF, HTN, HLP, chronic anemia, morbid obesity but weight loss from BMI 60 to 47, hx of diabetic foot wounds and osteo, lymphedema and non-compliance PLAN: monitor cultures, liver panel and abdominal exam . If urine isolate matches blood isolate, and abdominal exam remains unremarkable, will not pursue GI work up Total time 75 minutes on this day of encounter includes counseling, coordinating plan of care, record and documentation review before and after visit including documentation and time not explicitly included on EMR time stamp for accounting for open encounter. Associated Order(s): IP CONSULT TO NEPHROLOGY [facility] Consultation Note Reason for consultation: Chief Complaint: AMS History of Presenting Illness Patient is a 71 y.o. female with past medical history of Patient with history of morbid obesity atrial fibrillation diabetes mellitus type 2 lymphedema. Admitted for altered mental status and fever. Nephrology has been consulted for WHITLEY on CKD. History of baseline dementia and patient is a poor historian. Known history of neuropathy. In April patient required renal replacement therapy due to acute kidney injury. Has been treated for osteomyelitis in 2020 Patient has been off of dialysis since April 06, 2020. It appears patient's baseline creatinine is close to 1.4-1.6. On presentation creatinine was 2.27 and is now up to 2.4. Patient had elevated lactic acidosis hemoglobin 8.8. CBC showed toxic granulation urine analysis from June 09 shows extra turbid urine. Moderate calcium oxalate crystalluria bacteriuria pyuria hyaline cast blood cultures are growing gram-negative bacilli. Patient has developed metabolic acidosis elevated anion gap since presentation Patient is a poor historian and history is reviewed from chart. Discussed with bedside nurse. Patient unable to answer questions relating to history or review of systems Patient unable to answer questions relating to history or review of systems due to his clinical situation. Past Medical/Surgical History Past Medical History: Diagnosis Date A-fib (CMS/HCC) (HCC) Anemia Diabetes (HCC) Lymphedema Obesity History reviewed. No pertinent surgical history. Review of Systems Patient unable to answer questions relating to history or review of systems due to clinical condition Allergies Patient has no known allergies. Family History No known family for Kidney Disease patient unable to answer questions relating to history or review of systems due to clinical situation. No family history on file. Social History Social History Socioeconomic History Marital status: Tobacco Use Smoking status: Never Smokeless tobacco: Never Vaping Use Vaping Use: Never used Substance and Sexual Activity Alcohol use: Never Drug use: Never Sexual activity: Not Currently Medications Medications Prior to Admission Medication Sig Dispense Refill Last Dose baclofen (Lioresal) 5 MG tablet Take 1 tablet by mouth 2 times daily. insulin glargine (Lantus) 100 UNIT/ML injection 60 units senna-docusate (Helena-Colace) 8.6-50 MG tablet Take 100 tablets by mouth Every 24 hours. acetaminophen (Tylenol) 325 MG tablet Take 975 mg by mouth. aluminum-magnesium hydroxide 200-200 MG/5ML suspension Take 30 mL by mouth every 4 hours as needed for heartburn. ascorbic acid (Vitamin C) 250 MG tablet Take 250 mg by mouth daily. aspirin 81 MG chewable tablet Chew 81 mg daily. atorvastatin (Lipitor) 20 MG tablet Take 20 mg by mouth daily. calcium carbonate (Tums) 500 MG chewable tablet Chew 500 mg daily. Calcium Carbonate-Vitamin D (Oyster Shell Calcium/D) 500-5 MG-MCG tablet Take 1 tablet by mouth daily. donepezil (Aricept) 10 MG tablet Take 10 mg by mouth Nightly. guaiFENesin (Robitussin) 100 MG/5ML liquid Take 10 mg by mouth every 4 hours as needed for cough. lisinopril 10 MG tablet Take 10 mg by mouth daily. magnesium hydroxide (Milk of Magnesia) 800 MG/5ML suspension Take 30 mL by mouth Daily as needed for constipation. ondansetron (Zofran) 4 MG tablet Take by mouth every 8 hours as needed. oxyCODONE (Oxy-IR) 5 MG immediate release capsule Take 5 mg by mouth. sertraline (Zoloft) 50 MG tablet Take 50 mg by mouth daily. Current Medications: albumin human, 50 g, IntraVENous, Once [Held by provider] apixaban, 5 mg, Oral, BID atorvastatin, 20 mg, Oral, Daily baclofen, 5 mg, Oral, BID [Held by provider] gabapentin, 100 mg, Oral, BID insulin glargine, 10 Units, SubCUTAneous, Nightly insulin lispro, 0-18 Units, SubCUTAneous, q6h meropenem, 1,000 mg, IntraVENous, q8h pantoprazole, 40 mg, Oral, Nightly Or pantoprazole, 40 mg, IntraVENous, Nightly sodium chloride 0.9%, 5-40 mL, IntraVENous, 2 times per day vancomycin, 750 mg, IntraVENous, q24h Continuous Infusions:heparin, 5-30 Units/kg/hr, Last Rate: 8.6 Units/kg/hr (06/10/22 0406) sodium bicarbonate drip, 125 mL/hr, Last Rate: 125 mL/hr (06/10/22 0634) PRN Meds:PRN medications: dextrose, dextrose, glucagon (rDNA), glucose, heparin, heparin, ondansetron, perflutren lipid microspheres, sodium chloride, sodium chloride 0.9% Physical Exam Vitals: 06/10/22 0003 06/10/22 0330 06/10/22 0503 06/10/22 0603 BP: (!) 111/49 (!) 92/46 (!) 91/35 BP Location: Patient Position: Pulse: 97 87 78 Resp: Temp: 37.6 C (99.7 F) TempSrc: Axillary SpO2: 100% 99% 99% Weight: Height: 24 HR INTAKE/OUTPUT: Intake/Output Summary (Last 24 hours) at 06/10/2022 0856 Last data filed at 06/10/2022 0441 Gross per 24 hour Intake 3817 ml Output 410 ml Net 3407 ml General: unComfortable appearing, moaning awake alert Head: NCAT Eye anicteric sclera, conjunctiva clear Mouth mucus membrane dry appearing Neck: Supple, no jvd Chest: B/L equal air entry , no crackles, no accessory muscles usage. CV: s1s2 heard RRR, no murmurs or rubs Abdomen: NT, non Distended, soft Bowel sounds present , No palpable masses morbid obesity Extremities: 1 + peripheral edema, no cyanosis or clubbing Skin Warm No rash Neurological: did not participate in conversation awake alert and does track Data Recent Labs 06/09/22 11306/09/22 1640 06/10/22 0321 WBC 10.2 9.3 11.4* HGB 9.5* 7.6* 8.8* HCT 30.1* 23.8* 28.7* MCV 80.5 80.8 81.9 PLT 116* 107* 67* Recent Labs 06/09/22 1132 06/09/22 1640 06/10/22 0321 NA 138 138 140 K 4.3 4.5 3.5 CL 109* 109* 109* CO2 25 23 19* GLUCOSE 221* 283* 219* PHOS -- -- 2.9 MG -- -- 1.6 BUN 49* 47* 49* CREATININE 2.27* 2.11* 2.40* Albumin: No components found for: LABALBU Calcium: Lab Results Component Value Date CALCIUM 8.2 (L) 06/10/2022 ) Lab Results Component Value Date COLORU Yellow 06/09/2022 GLUCOSEU 50 06/09/2022 UROBILINOGEN 2 (A) 06/09/2022 Imaging: CT abdomen results pending Assessment 71 y.o. female with 1. 1. Acute kidney injury suspect acute tubular necrosis from severe sepsis and septic shock 2. Gram-negative bacteremia 3. Urinary tract infection 4. Morbid obesity 5. Calcium oxalate crystalluria 6. Non-anion gap metabolic acidosis 7. lactic acidosis RECOMMENDATIONS: Continue with volume expansion. 1 L lactated Ringer bolus Patient already has been fluid resuscitated. Reasonable to continue bicarbonate drip. Noted Jose catheter being placed agree with that. Await results of CT abdomen and pelvis I am concerned patient may have pyelonephritis. Gram-negative bacteremia being treated with broad-spectrum antibiotics. Patient is presently on meropenem. As of right now there is no acute indication for renal replacement therapy. Lisinopril is being held appropriately. We will follow. Thank you for asking us to participate in the management of your patient, please do not hesitate to contact me for any concerns regarding my recommendations as outlined above. I can be easily reached via messaging Jonathan Hardwick MD Office [facility] [phone] Thank you for asking us to participate in the management of your patient, please do not hesitate to contact me for any concerns regarding my recommendations as outlined above. I can be easily reached via perfect Serve SIGNATURE: Jonathan Hardwick MD PATIENT NAME: Salazar Coyle DATE: June 10, 2022 Office [facility] [phone] documented in this encounter [facility] 06-14-2022 Hospital Discharge instructions Nany Salazar RN - 06/14/2022 11:34 AM EDT Images from the original note were not included. 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 No Past Surgical History: History reviewed. No pertinent surgical history. Immunization History: Immunization History Administered Date(s) Administered Influenza, High Dose Seasonal, Preservative Free 01/07/2018 Influenza, Unspecified 01/31/2017 Pneumococcal Polysaccharide PPSV23 01/31/2017 Active Problems: Medical Problems Problem List * (Principal) Septic shock ([facility]) ([facility]) Edema Hypertension Foot ulcer ([facility]) Hyperlipemia Bladder spasm Type 2 diabetes mellitus with hyperglycemia ([facility]) ([facility]) Overview Signed 01/14/2022 2:38 PM by Interface, Incoming Problems- [facility] Conversion Important Lab History: HBA1C: 09/2015: >13%, 10/2015: 10.4% Thyroid Function Testing: Renal Function Testin12/2015: Creatinine 0.81 Urine for Microalbumin: Lipid Profile: Liver Profile: Dilated Eye Exam: 09/2015: Hospitalized, Doctor Dmitriy consulted, was on orals at that time, HbA1C was over 13%, insulin was started. 12/2015: First time office visit for Type 2 Diabetes Mellitus management. Known to Doctor Izaguirre through consultation at [facility]. Long acting insulin: Insulin used for this is called: Levemir Bedtime dose 85 units Rapid acting /mealtime insulin: Insulin used for this is called: Novolog Breakfast dose: 40 units Lunchtime dose 40 units Supper dose 40 units States since hospital discharge readings have been significantly above goal. Describes going to Primary Care Provider office and they recently increased insulin to the above doses. I spent a good deal of time with insulin education, after patient provided me a return demonstration, she HAS NOT been injecting insulin at all this whole time. This is likely why she has required less insulin when hospitalized since nurses were administering the insulin. There are two protective caps on the needle, she was only removing the outer one, therefore; has not been actually injecting the insulin. She states she didn't know why it felt like the insulin was running down her skin. States she was never taught the proper way to administer insulin. Denies frequent periods of hypoglycemia. I reviewed its signs and symptoms. Wounds, multiple Degenerative disc disease, cervical Chronic pain Osteoarthrosis PAF (paroxysmal atrial fibrillation) ([facility]) ([facility]) Cognitive decline Morbid obesity with BMI of 60.0-69.9, adult ([facility]) ([facility]) 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 ([facility]) Recurrent UTI Cerebrovascular accident ([facility]) Hyperglycemia Chronic indwelling Jose catheter Overview Signed 01/14/2022 2:39 PM by Interface, Incoming Problems- [facility] Conversion Notes refer to chronic jose going back to 2019 CKD (chronic kidney disease) Asymptomatic bacteriuria Anemia Isolation/Infection: Contact MRSA, ESBL Nurse Assessment: Last Vital Signs: BP (!) 157/71 (BP Location: Right arm, Patient Position: Lying) Pulse 51 Temp 35.8 C (96.4 F) (Temporal) Resp 20 Ht 1.676 m (5' 6") Wt 131 kg (289 lb) SpO2 100% BMI 46.65 kg/m Last documented pain score (0-10 scale): Last Weight: Wt Readings from Last 1 Encounters: 06/10/22 131 kg (289 lb) Mental Status: JENN Patient Mental Status: oriented and alert IV Access: JENN IV Access: Central Venous Catheter - site: subclavian right, condition patent and no redness, insertion date: 06/15/2022 Nursing Mobility/ADLs: Walking Total assistance Transfer Total assistance Bathing Total assistance Dressing Total assistance Toileting Total assistance Feeding Minimal assistance Store Assistant Minimal assistance Med Delivery yes Wound Care Documentation and Therapy: Wound/Incision 06/09/22 Coccyx (Active) Number of days: 4 Wound/Incision 06/09/22 Venous Ulcer Pretibial Right (Active) Site Assessment Dry;Red 06/13/22 0849 Drainage Amount None 06/11/22 0820 Primary Dressing Protective barrier 06/11/22 0820 Dressing Status New dressing applied 06/11/22 0820 Number of days: 4 Wound/Incision 06/09/22 Venous Ulcer Pretibial Left (Active) Site Assessment Dry;Red 06/13/22 0849 Drainage Amount None 06/11/22 0820 Primary Dressing Protective barrier 06/11/22 0820 Dressing Status New dressing applied 06/11/22 0820 Number of days: 4 Wound/Incision 06/10/22 Traumatic Leg Left;Proximal;Upper;Posterior (Active) Wound Image 06/10/22 0832 Site Assessment Purple;Red 06/13/22 0743 Wound Length (cm) 5 cm 06/10/22 0832 Wound Width (cm) 2 cm 06/10/22 0832 Wound Surface Area (cm^2) 10 cm^2 06/10/22 0832 Drainage Amount None 06/13/22 1940 Primary Dressing Protective barrier 06/11/22 0820 Dressing Status New dressing applied 06/11/22 0820 Number of days: 4 Wound/Incision 06/10/22 Amputation site - Toe Anterior;Right (Active) Number of days: 3 Elimination: Continence: Bowel: no Bladder: Urinary Catheter: 16F jose chronic Colostomy/Ileostomy/Ileal Conduit: None Date of Last BM: 06/15/2022 Intake/Output Summary (Last 24 hours) at 06/14/2022 1132 Last data filed at 06/14/2022 0652 Gross per 24 hour Intake 582.58 ml Output 450 ml Net 132.58 ml I/O last 3 completed shifts: In: 587.6 (4.5 mL/kg) [I.V.:587.6 (4.5 mL/kg)] Out: 450 (3.4 mL/kg) [Urine:450 (0.1 mL/kg/hr)] Weight: 131.1 kg Safety Concerns: none Impairments/Disabilities: none Nutrition Therapy: Current Nutrition Therapy: Oral diet: carb control 4 carbs/meal (1800kcals/day) Routes of Feeding: oral Liquids: thin liquids Daily Fluid Restriction: no Last Modified Barium Swallow with Video (Video Swallowing Test): not done Treatments at the Time of Hospital Discharge: Respiratory Treatments: Oxygen Therapy: is not on home oxygen therapy. Ventilator: No ventilator support Rehab Therapies: physical therapy and occupational therapy Weight Bearing Status/Restrictions: no restriction Other Medical Equipment (for information only, NOT a DME order): Other Treatments: Patient's personal belongings (please select all that are sent with patient): {JENN Patient Belongings:[id number]} RN SIGNATURE: MANAGEMENT/SOCIAL WORK SECTION Inpatient Status Date: 06/09/2022 Readmission Risk Assessment Score: Predictive Model Details Model IP RISK OF UNPLANNED READMISSION [[id number]] is not released. No score information can be retrieved Discharging to Facility/ Agency Name: [facility] Address: [address] [place], [place] [id number] Fax: Dialysis Facility (if applicable) Name: Address: Dialysis Schedule: Phone: Fax: Call Center Coordinator/Occupational Therapist Assistant signature: ICIAN SECTION Prognosis: poor Condition at Discharge: stable Rehab Potential (if transferring to Rehab): poor Recommended Labs or Other Treatments After Discharge: repeat cbc in 1-2 days (hgb has been fluctuating between 7-8 range). Please check earwax/may need debrox per request of Daughter Deidra. Physician Certification: I certify the above information and transfer of Salazar Coyle is necessary for the continuing treatment of the diagnosis listed and that she requires correction facility for greater than 30 days. Update Admission H&P: No change in H&P PHYSICIAN SIGNATURE: The following attachments cannot be sent through Care Everywhere.Central Line Catheter (North Korean)Central Line Catheter Discharge Instructions (North Korean)How to Care for a Central Line Catheter (North Korean)documented in this encounter [facility] 06-12-2022 Telephone encounter Note OR Request for Darci PROCEDURE: cystoscopy, left ureteroscopy with laser lithotripsy and stent exchange DIAGNOSIS: left UPJ calculus FACILITY: [facility] DETAILS: OUTPT ANESTHESIA: GENERAL TIME REQUESTED: 2hr DATE REQUESTED: 3-4 weeks SURGERY ORDERS: will be Placed by Jimmy Bejarano POST OP FOLLOW UP: TBD REP REQUESTED: No SPECIAL NEEDS: Must be OR 14 or 17 at [facility] due to body habitus/ medical comorbidities PAT: No recently admitted MEDICAL CLEARANCE: no Currently admitted at [facility] Nabor Gay is POA Phone number in chart [employer] Phone: 06-09-2022 Emergency department Note REPORT CALLED TO Melissa Han RN 06/09/22 1503 EMERGENCY DEPARTMENT ENCOUNTER Pt Name: Salazar Coyle Birthdate 1950 Date of evaluation: 06/09/2022 ED Provider: Hood Wood DO CHIEF COMPLAINT Chief Complaint Patient presents with Altered Mental Status Fever Blood Infection HISTORY OF PRESENT ILLNESS (Location/Symptom, Timing/Onset, Context/Setting, Quality, Duration, Modifying Factors, Severity) Note limiting factors. I wore appropriate PPE for the entirety of this encounter. HPI Salazar Coyle is a 71 y.o. female who presents to the emergency department with chief complaint of altered mental status and decreased responsiveness. [facility]. She apparently had a low-grade fever there and was more lethargic than usual. At baseline, she is alert and oriented most of the time with some dementia history. Family later arrives and notes that patient is way more confused than usual and they are concerned for infection somewhere and that last time this happened, she had a UTI. Nursing Notes were reviewed. Limitations to history: Altered mental status/confusion Outside historians: Family : daughter and EMS REVIEW OF SYSTEMS Review of Systems Pertinent positives and negatives as per HPI PAST MEDICAL HISTORY Past Medical History: Diagnosis Date A-fib (CMS/HCC) (HCC) Anemia Diabetes (HCC) Lymphedema Obesity SURGICAL HISTORY History reviewed. No pertinent surgical history. CURRENT MEDICATIONS Previous Medications No medications on file ALLERGIES Patient has no known allergies. FAMILY HISTORY No family history on file. SOCIAL HISTORY Social History Socioeconomic History Marital status: Tobacco Use Smoking status: Never Smokeless tobacco: Never Vaping Use Vaping Use: Never used Substance and Sexual Activity Alcohol use: Never Drug use: Never Sexual activity: Not Currently SCREENINGS PHYSICAL EXAM ED Triage Vitals Temp Heart Rate Resp BP 06/09/22 1156 06/09/22 1156 06/09/22 1156 06/09/22 1156 37.8 C (100.1 F) 87 15 (!) 88/41 SpO2 Temp Source Heart Rate Source Patient Position 06/09/22 1156 06/09/22 1156 06/09/22 1156 06/09/22 1334 96 % Tympanic Monitor Lying BP Location FiO2 (%) 06/09/22 1334 -- Left arm Physical Exam Vitals and nursing note reviewed. Constitutional: General: She is in acute distress. Appearance: She is ill-appearing. HENT: Head: Normocephalic and atraumatic. Right Ear: External ear normal. Left Ear: External ear normal. Nose: Nose normal. Mouth/Throat: Mouth: Mucous membranes are dry. Eyes: Conjunctiva/sclera: Conjunctivae normal. Cardiovascular: Rate and Rhythm: Normal rate and regular rhythm. Comments: Diminished peripheral pulses Pulmonary: Effort: No respiratory distress. Breath sounds: Rhonchi present. No rales. Abdominal: Palpations: Abdomen is soft. Tenderness: There is no guarding or rebound. Musculoskeletal: Cervical back: Neck supple. Skin: General: Skin is warm and dry. Capillary Refill: Capillary refill takes 2 to 3 seconds. Coloration: Skin is pale. Neurological: Comments: Disoriented. Responding primary to loud verbal stimuli only. Moving all extremities equally. No obvious facial droop. DIAGNOSTIC RESULTS RADIOLOGY (Per Emergency Physician): Interpretation per the Radiologist below, if available at the time of this note: XR chest 1 view Final Result No acute cardiopulmonary abnormality identified. Cardiomegaly. Report Dictated on Electronically Signed By: Catarino Sue Electronically Signed Date/Time: 06/09/2022 12:17 PM EST LABS: Labs Reviewed CBC WITH AUTO DIFFERENTIAL - Abnormal Result Value Auto WBC 10.2 RBC 3.74 (*) Hemoglobin 9.5 (*) Hematocrit 30.1 (*) MCV 80.5 MCH 25.5 (*) MCHC 31.7 (*) RDW 18.4 (*) Platelets 116 (*) MPV 10.5 nRBC 0.0 Neutrophils Relative 93.5 (*) Lymphocytes Relative 3.1 (*) Monocytes Relative 3.1 Eosinophils Relative 0.1 (*) Basophils Relative 0.2 Neutrophils Absolute 9.5 (*) Lymphocytes Absolute 0.3 (*) Monocytes Absolute 0.3 Eosinophils Absolute 0.0 Basophils Absolute 0.0 BASIC METABOLIC PANEL - Abnormal SODIUM 138 POTASSIUM 4.3 CHLORIDE 109 (*) CARBON DIOXIDE 25 UREA NITROGEN 49 (*) CREATININE 2.27 (*) GLUCOSE 221 (*) CALCIUM 8.4 ANION GAP 5 eGFR 22.3 (*) HEPATIC FUNCTION PANEL - Abnormal BILIRUBIN, TOTAL 1.0 BILIRUBIN, DIRECT 0.0 ALKALINE PHOSPHATASE 120 AST (SGOT) 24 ALT 11 ALBUMIN 2.9 (*) TOTAL PROTEIN 6.1 (*) LACTIC ACID, SEPSIS WITH REFLEX IF ELEVATED - Abnormal LACTIC ACID 2.9 (*) LIPASE - Abnormal LIPASE <10 (*) AMMONIA - Abnormal AMMONIA <9 (*) POCT VENOUS BLOOD GAS UNSOLICITED RESULTS - Abnormal pH, Venous 7.403 pCO2, Venous 35.7 (*) pO2, Venous 45.6 TCO2, Venous 23.3 (*) HCO3, Venous 22.2 (*) Base Excess, Venous -2.2 SO2, Venous 81.8 (*) FIO2 21 Narrative: Performed by: [facility] [address] [place] [id number] CLIA ID: [id number] CK - Normal CK 106 BLOOD CULTURE BLOOD CULTURE URINE CULTURE BLOOD GAS, VENOUS COMPLETE URINALYSIS WITH REFLEX TO CULTURE Narrative: The following orders were created for panel order Urinalysis complete with reflex to Culture. Procedure Abnormality Status --------- ------ Complete Urinalysis[[id number]] Please view results for these tests on the individual orders. COMPLETE URINALYSIS LACTIC ACID, PLASMA All other labs were within normal range or not returned as of this dictation. EMERGENCY DEPARTMENT COURSE and DIFFERENTIAL DIAGNOSIS/MDM: Vitals: Vitals: 06/09/22 1100 06/09/22 1156 06/09/22 1334 BP: (!) 88/41 (!) 98/40 BP Location: Left arm Patient Position: Lying Pulse: 87 88 Resp: 15 16 Temp: 37.8 C (100.1 F) TempSrc: Tympanic SpO2: 96% 98% Weight: 131 kg (289 lb) Height: 1.575 m (5' 2") 1.676 m (5' 6") Medications vancomycin (Vancocin) 750 mg in dextrose 5 % 250 mL IVPB (has no administration in time range) sodium chloride 0.9 % bolus 1,000 mL (1,000 mL IntraVENous New Bag 06/09/22 1333) sodium chloride 0.9 % bolus 2,000 mL (0 mL IntraVENous Stopped 06/09/22 1226) piperacillin-tazobactam (Zosyn) 4,500 mg in dextrose 5 % 100 mL IVPB Mini-Bag Plus (4,500 mg IntraVENous Given 06/09/22 1329) acetaminophen (Tylenol) suppository 650 mg (650 mg Rectal Given 06/09/22 1145) MDM elements: The patient presented with chief complaint of altered mental status. Hypotensive upon arrival. Ill-appearing.. The differential diagnosis associated with this patient's presentation includes sepsis from UTI/pneumonia, acute liver failure, cardiogenic shock. Our workup consisted of ordering/reviewing: CBC, BMP, venous blood gas, ammonia, lactic acid level, chest x-ray, urine analysis. Diagnostic tests considered but not performed: Consider lumbar puncture but very low clinical suspicion for CUTTER HELPER infection as a cause of encephalopathy. More likely to be sepsis from UTI based on history and exam findings. To aid in management, I performed an independent interpretation of Xray(s) of chest. I also reviewed external records from previous nephrology notes reviewed. Baseline kidney function appears to be creatinine between 1.2-1.4. I discussed their care with Admitting team DR. Mckeon of pulm/crit. The patient will be Admitted. Patient is in agreement with this plan. Patient's care was impacted by dementia. CRITICAL CARE TIME Total Critical Care time was 33 minutes, excluding separately reportable procedures. There was a high probability of clinically significant/life threatening deterioration in the patient's condition which required my urgent intervention. FINAL IMPRESSION 1. Septic shock (CMS/HCC) ([facility]) DISPOSITION Admit 06/09/2022 02:01:17 PM PATIENT REFERRED TO: No follow-up provider specified. DISCHARGE MEDICATIONS: New Prescriptions No medications on file (Comment: Please note this report has been produced using speech recognition software and may contain errors related to that system including errors in grammar, punctuation, and spelling, as well as words and phrases that may be inappropriate. If there are any questions or concerns please feel free to contact the dictating provider for clarification.) Hood Wood DO (electronically signed) Emergency Medicine Provider Hood Wood DO 06/09/22 1419 PT. TRANSFERRED FROM [facility], FOR C/O LOW GRADE FEVER, LETHARGY, CHANGE IN MENTAL STATUS. (BASELINE= A + O X 3) documented in this encounter [facility] 06-09-2022 History and physical note Images from the original note were not included. Internal Medicine: MICU Initial History and Physical Name: Salazar Coyle : 1950(71 y.o.) Date: 06/09/22 Attending: Dr. Thacker Subjective: Chief Complaint: Sepsis HPI: 71-year-old female with severe morbid obesity, history of atrial fibrillation diabetes type 2 chronic lymphedema transferred from [facility] to [facility] because of change of mental status low-grade fever on talking to patient's daughter patient reportedly was treated with IV antibiotics for a UTI at the nursing facility. Difficult to obtain a detailed history from the patient patient does have baseline history of dementia patient complains of diffuse pain per daughter patient has significant pain in her lower extremities has diabetes with neuropathy During her hospitalization in April 2021 patient had acute kidney injury requiring hemodialysis. After patient's kidney function improved hemodialysis catheter was removed during that hospital stay patient had also developed acute hypoxic respiratory failure requiring intubation. Patient was treated for osteomyelitis with septic shock needing pressors patient underwent I&D on the right foot on 15 March 2021 and was treated for mild polymicrobial infection Past Medical History: Diagnosis Date A-fib (CMS/HCC) (HCC) Anemia Diabetes (HCC) Lymphedema Obesity History reviewed. No pertinent surgical history. No family history on file. Social History Socioeconomic History Marital status: Spouse name: Not on file Number of children: Not on file Years of education: Not on file Highest education level: Not on file Occupational History Not on file Tobacco Use Smoking status: Never Smokeless tobacco: Never Vaping Use Vaping Use: Never used Substance and Sexual Activity Alcohol use: Never Drug use: Never Sexual activity: Not Currently Other Topics Concern Not on file Social History Narrative Not on file Social Determinants of Health Financial Resource Strain: Not on file Food Insecurity: Not on file Transportation Needs: Not on file Physical Activity: Not on file Stress: Not on file Social Connections: Not on file Intimate Partner Violence: Not on file Housing Stability: Not on file No Known Allergies Prior to Admission medications Not on File Objective: Oxygen Delivery: VITALS: BP (!) 98/40 (BP Location: Left arm, Patient Position: Lying) Pulse 88 Temp 37.8 C (100.1 F) (Tympanic) Resp 16 Ht 5' 6" (1.676 m) Wt 289 lb (131 kg) SpO2 98% BMI 46.65 kg/m CURRENT PULSE OXIMETRY: SpO2: 98 % Review of Systems Constitutional: General Appearance []WDWN []Obese []Cachectic []Thin [x]Ill Eyes: Inspection of Pupils/Irises Pupils round and react: [x]Yes []No Sclera: []Icteric [x]Non-Icteric Inspection of Conjunctiva/Lids Conjunctiva: []Injected [x]Non-Injected Lids: []Intact []Lesion Present ENT/Mouth: External Inspection of ears/nose [] Normal [] Scar/Lesion/Mass Inspection of teeth/lips/gums Dentition: []Crow Teeth []Dentures Lips/Gums: []Intact []Lesion Present Mucosa: [][place] []Moist []Dry Neck: External Appearance Overall Appearance: [x]Normal []Lesion/Mass/Crepitus Present Trachea midline: [x]Yes []No Thyroid [x]Normal []Enlarged []Tender []Mass []Absent Respiratory: Respiratory effort []Labored [x]Non-Labored [] Mechanically-Ventilated Auscultation [x]Clear []Crackles []Wheezes []Rhonchi Cardiovascular: Auscultation Rate: [x]Regular []Irregular []Tachycardia []Bradycardia Rhythm: [x]Regular []Irregular Murmur: []Present [x]Absent Extremities Peripheral Edema: [x]Present []Absent Varicosities: []Present []Absent Gastrointestinal: Abdomen Palpation: [x]Soft []Firm []Tender []Non-Tender []Distended []Non-distended Mass: []Present []Absent Bowel Sounds: [x]Present []Absent Hernia: []Present []Absent Liver/Spleen: []Hepatosplenomegaly []Organomegaly Absent Musculoskeletal: Inspection of Digits and Nails Cyanosis: []Present []Absent Clubbing: []Present []Absent Ischemia: []Present []Absent Infection: []Present []Absent Extremities BLANCA Equally: Except ([]RUE []RLE []LUE []LLE) Strength/Tone: Intact and Normal ([]RUE []RLE []LUE []LLE) Skin: Inspection []Normal []Rash [x]Lesion []Ulcer Palpation [x]Warm []Cool []Dry []Clammy []Nodules []Induration []Skin-tightening Cap-Refill: [] <3 sec [x] >3 seconds (delayed) Neurologic: GCS EYE: 3 - Opens to verbal commands GCS MOTOR: 4 - Withdraws from pain GCS VERBAL: 4 - Confused Total GCS: 11 [] Sensation grossly intact Psych: Mental Status Alert: []Yes [] No Oriented: []x0 []X1 []X2 []x3 Mood/Affect []Normal []Flat []Agitated []Depressed []Anxious []Calm []Sedated []NAD [facility] within last 24 hours- BMP: Recent Labs 06/09/22 1132 NA 138 K 4.3 CL 109* CO2 25 BUN 49* CREATININE 2.27* CALCIUM 8.4 LFTs: Recent Labs 06/09/22 1132 AST 24 ALT 11 PROT 6.1* ALBUMIN 2.9* BILITOT 1.0 ALKPHOS 120 LIPASE <10* Glucose: Recent Labs 06/09/22 1132 GLUCOSE 221* Procal: No results for input(s): PROCAL in the last 72 hours. CBC: Recent Labs 06/09/22 1132 WBC 10.2 HGB 9.5* HCT 30.1* PLT 116* MCV 80.5 RDW 18.4* ABGs: No results for input(s): PHART, QGA2PFE, PO2ART, XEK6CLK, SO2ART, G7MGYOWX in the last 72 hours. Lactic Acid: Recent Labs 06/09/22 1132 LACTATE 2.9* INR: No results for input(s): INR in the last 72 hours. Cardiac Injury Profile: Recent Labs 06/09/22 1132 CKTOTAL 106 Labs in Last 3 months: Lab Results Component Value Date INR 1.1 03/14/2021 Microbiology- Urine Cx: No results found for: URINECX Blood Cx: Lab Results Component Value Date BLOODCX No growth at 5 days. 03/08/2021 Sputum Cx: No results found for: RESPCULT Gram Stain: No results found for: LABGRAM PNA PCR: No results found for: HUMANMETAPNE COVID19: No results found for: COVID19 Legionella Ag: No results found for: LEGIONELLAPN Strep Ag: No results for input(s): STREPPNEUMO in the last 72 hours. Imaging- CXR portable:Results for orders placed during the hospital encounter of 06/09/22 XR chest 1 view Narrative [facility] 1950 [id number] Exam Date/Time: 06/09/2022 12:23 Procedure: XR CHEST 1 VIEW Ordering Provider: WOOD VISHNU Reason For Exam: ams; concern for sepsis EXAMINATION: XR chest AP. EXAM DATE & TIME: 06/09/2022 12:03 PM EST INDICATION: ams; concern for sepsis ADDITIONAL INFORMATION: 71-year-old female with altered mental status and clinical suspicion for sepsis presents for evaluation COMPARISON: Chest radiograph dated 03/26/2021, 03/20/2021 and 03/08/2021 TECHNIQUE: Frontal views of the chest were obtained. FINDINGS: Lines/support devices: Cardiac leads project over the chest, somewhat limiting evaluation. Cardiomediastinal silhouette: The heart is enlarged. Lungs/pleura: No focal consolidation, pleural effusion or pneumothorax. Osseous structures: Degenerative changes of the spine and shoulders are seen. No acute osseous abnormality is demonstrated. The bones are osteopenic Other findings: None. Impression No acute cardiopulmonary abnormality identified. Cardiomegaly. Report Dictated on Electronically Signed By: Catarino Sue Electronically Signed Date/Time: 06/09/2022 12:17 PM EST Assessment and Plan: Principal Problem: Septic shock (CMS/HCC) ([facility]) Assessment/Plan: Severe sepsis/post septic shock patient has received 3 L of IV fluid in the emergency room, also started on antibiotics cultures are pending patient was recently treated for a urinary tract infection at the nursing facility probably has a UTI History of severe morbid obesity may have obesity hypoventilation syndrome/sleep apnea patient refusing PAP therapy Diabetes type 2 with neuropathy monitor blood sugars cover with sliding scale insulin History of heart failure with preserved ejection fraction appears to be compensated History of paroxysmal A-fib. Get medication list Acute kidney injury on chronic kidney disease stage III-monitor BMP avoid nephrotoxic agents GI Prophylaxis: Pantoprazole IV DVT Prophylaxis: Heparin subcutaneous BMI Classification: Body mass index is 46.65 kg/m . morbid obesity BMI 40 or > Disposition: Admit to ICU SEP-1 CORE MEASURE DATA SIRS Criteria Sepsis Criteria Severe Sepsis Criteria Septic Shock Criteria Must meet 2: [] Temperature > 100.4 F (38 C) or < 96.8 F (36 C) [] HR > 90 [] RR > 20 [] WBC > 12 or < 4 or 10% bands Must be confirmed or suspected to move forward with diagnosis of sepsis. [x] Infection Confirmed or Suspected. [] No infection present. Patient does not meet criteria for Sepsis. Must meet 1: [x] Lactate > 2 or [x] Signs of Organ Dysfunction: - SBP < 90 or MAP < 65 - Altered mental status - Creatinine > 2 or increased from baseline - Urine Output < 0.5 ml/kg/hr - Bilirubin > 2 - INR > 1.5 - Platelets < 100,000 - Acute Respiratory Failure as evidenced by new need for NIPPV or mechanical ventilation [] No criteria met for Severe Sepsis. Must meet 1: [] Lactate = or > 4 or [x] SBP < 90 or MAP < 65 for at least two readings in the first hour after fluid bolus administration [] No criteria met for Septic Shock. No data found. Recent Labs 06/09/22 1132 WBC 10.2 LACTATE 2.9* CREATININE 2.27* BILITOT 1.0 PLT 116* Sepsis Identified at 1132 hours. Fluid Resuscitation Rational: at least 30mL/kg based on entered actual body weight at time of triage Infection Source: Urinary System Reassessment Exam: I examined the patient 06/09/2022 2:10 PM Vital Signs:BP (!) 98/40 (BP Location: Left arm, Patient Position: Lying) Pulse 88 Temp 37.8 C (100.1 F) (Tympanic) Resp 16 Ht 5' 6" (1.676 m) Wt 289 lb (131 kg) SpO2 98% BMI 46.65 kg/m Cardiac examination significant for: Regular rate and rhythm Pulmonary examination significant for: Clear lung johnosn Capillary refill is: 3 seconds Peripheral Pulse is: 2+ Skin is: Normal Franchesca Mckeon MD Critical Care Time: > 35 minutes Total critical care time caring for this patient with life threatening, unstable organ failure, including direct patient contact, management of life support systems, review of data including imaging and labs, discussions with other team members and physicians, excluding procedures. documented in this encounter [facility] 04-15-2021 Hospital Discharge instructions Nayely Vuong RN - 04/15/2021 12:36 PM EST Good nutrition is important when healing from an illness, injury, or surgery. Follow any nutrition recommendations given to you during your hospital stay. If you were given an oral nutrition supplement while in the hospital, continue to take this supplement at home. You can take it with meals, in-between meals, and/or before bedtime. These supplements can be purchased at most local grocery stores, pharmacies, and chain [employer]stores. If you have any questions about your diet or nutrition, call the hospital and ask for the dietitian. Nayely Vuong RN - 04/12/2021 9:05 AM EST Continuity of Care Form Patient Name: Salazar Coyle : 1950 Admit date: 03/08/2021 Discharge date: 04/15/21 Code Status Order: Full Code Advance Directives: Admitting Physician: Nabeel Jeffries MD PCP: ARMANDO ROBBINS MD Discharging Nurse: Nayely Vuong RN Discharging Hospital Unit/Room#: [id number] Discharging Unit Emergency Contact: Extended Emergency Contact Information Primary Emergency Contact: Deidra Vang Mobile Relation: Child Past Surgical History: History reviewed. No pertinent surgical history. Immunization History: Immunization History Administered Date(s) Administered Influenza Virus Vaccine 01/31/2017 Influenza, High Dose (Fluzone 65 yrs and older) 01/07/2018 Pneumococcal Polysaccharide ([id number]) 01/31/2017 Active Problems: Patient Active Problem List Diagnosis Code Foot ulcer ([facility]) L97.509 Wounds, multiple T07.XXXA Type 2 diabetes mellitus with hyperglycemia ([facility]) E11.65 Cerebrovascular accident ([facility]) I63.9 Recurrent UTI N39.0 PAF (paroxysmal atrial fibrillation) ([facility]) I48.0 Osteoarthrosis M19.90 Hypertension I10 Hyperlipemia E78.5 Degenerative disc disease, cervical M50.30 Chronic pain G89.29 Bladder spasm N32.89 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 ([facility]) E11.621, L97.509 Morbid obesity with BMI of 60.0-69.9, adult ([facility]) E66.01, Z68.44 Cognitive decline R41.89 Edema R60.9 Anemia D64.9 Chronic indwelling Jose catheter Z97.8 Hyperglycemia R73.9 CKD (chronic kidney disease) N18.9 Asymptomatic bacteriuria R82.71 Isolation/Infection: Isolation No Isolation Patient Infection Status Infection Onset Added Last Indicated Last Indicated By Review Planned Expiration Resolved Resolved By MRSA 03/14/21 03/14/21 Maya Winn RN 03/14/21 - foot wound - Maintain standard precautions with strict adherence to hand hygiene and disinfection of equipment. Contact precautions if excretions or secretions cannot be contained. Nurse Assessment: Last Vital Signs: BP 98/68 Pulse 74 Temp 97.8 F (36.6 C) (Temporal) Resp 16 Ht 5' 2" (1.575 m) Wt (!) 389 lb 4.8 oz (176.6 kg) SpO2 94% BMI 71.20 kg/m Last documented pain score (0-10 scale): Pain Level: 3 Last Weight: Wt Readings from Last 1 Encounters: 04/09/21 (!) 389 lb 4.8 oz (176.6 kg) Mental Status: oriented and alert IV Access: - None Nursing Mobility/ADLs: Walking Dependent Transfer Dependent Bathing Dependent Dressing Dependent Toileting Dependent Feeding Dependent Store Assistant Dependent Med Delivery whole Wound Care Documentation and Therapy: Negative Pressure Wound Therapy Foot Right;Plantar (Active) $ Standard NPWT >50 sq cm PER TX $ Yes 04/08/21 09 Wound Type Diabetic foot ulcer 04/12/21744 Dressing Type Black foam 04/12/21744 Cycle Continuous 04/12/21744 Target Pressure (mmHg) 125 04/12/21744 Canister changed? No 04/10/212227 Dressing Status Clean;Dry;Intact 04/12/2145 Dressing Changed Changed/New 04/11/211999 Drainage Amount Small 04/10/212227 Dressing Change Due 04/13/21 04/12/2145 Output (ml) 0 ml 04/12/21622 Wound Assessment Other (Comment) 04/01/211999 [place]-wound Assessment Other (Comment) 04/10/212227 Odor None 04/10/212227 Number of days: 7 Wound Foot Right;Plantar Wound Vac s/p surgical debridement (Active) Dressing Status Dry;Clean;Intact 04/12/2145 Wound Cleansed Other (Comment) 04/11/21 1019 Dressing/Treatment ABD;[place] wrap;Other (comment) 04/03/212041 Dressing Change Due 04/13/20 04/11/21 1019 Wound Length (cm) 9 cm 04/05/21912 Wound Width (cm) 5.5 cm 04/05/21912 Wound Depth (cm) 0.8 cm 04/05/21912 Wound Surface Area (cm^2) 49.5 cm^2 04/05/2113 Wound Volume (cm^3) 39.6 cm^3 04/05/2113 Wound Assessment Other (Comment) 01/11/22 0745 Drainage Amount Small 04/10/212227 Drainage Description Purulent 04/10/212227 Odor Moderate 04/10/212227 [place]-wound Assessment Fragile 04/10/212227 Number of days: Wound Heel Right Stage 2 (Active) Wound Etiology Pressure Stage 2 04/11/211999 Dressing Status Clean;Dry;Intact 04/12/21744 Wound Cleansed Other (Comment) 04/11/21 1019 Dressing/Treatment Foam 04/11/21 1019 Wound Length (cm) 3 cm 04/11/211999 Wound Width (cm) 1 cm 04/11/211999 Wound Depth (cm) 0 cm 04/11/211999 Wound Surface Area (cm^2) 3 cm^2 04/11/211999 Change in Wound Size % (l*w) 0 04/11/211999 Wound Volume (cm^3) 0 cm^3 04/11/211999 Wound Assessment Other (Comment) 04/10/212227 Drainage Amount Scant 04/11/211999 Odor None 04/11/211999 [place]-wound Assessment Fragile;Intact 04/10/212227 Number of days: Wound 04/05/21 Heel Right;Plantar;Medial (Active) Wound Etiology Deep tissue/Injury 04/12/2145 Dressing Status Clean;Dry;Intact 04/12/2145 Wound Cleansed Other (Comment) 04/11/21 1019 Wound Length (cm) 1.5 cm 04/11/211999 Wound Width (cm) 1 cm 04/11/21 2000 Wound Depth (cm) 0 cm 04/11/211999 Wound Surface Area (cm^2) 1.5 cm^2 04/11/211999 Change in Wound Size % (l*w) 0 04/11/211999 Wound Volume (cm^3) 0 cm^3 04/11/211999 Wound Assessment [place]/red;Purple/maroon 04/11/21 1019 Number of days: 7 Wound 04/09/21 Leg Lower;Left;Right (Active) Wound Etiology Other 04/12/21 0745 Dressing Status New dressing applied 04/12/21 0745 Wound Cleansed Cleansed with saline 04/12/21 0745 Dressing/Treatment ABD 04/11/21 1019 Dressing Change Due 04/13/20 04/11/21 1019 Wound Assessment Dry 04/12/21 0745 Drainage Amount None 04/10/21 2228 Number of days: 2 Elimination: Continence: Bowel: No Bladder: No Urinary Catheter: Last Change Date 04/14/21 Colostomy/Ileostomy/Ileal Conduit: No Date of Last BM: 04/14/21 Intake/Output Summary (Last 24 hours) at 04/12/2021 0903 Last data filed at 04/12/2021 0718 Gross per 24 hour Intake -- Output 950 ml Net -950 ml I/O last 3 completed shifts: In: 120 [P.O.:120] Out: 900 [Urine:900] Safety Concerns: None Impairments/Disabilities: None Nutrition Therapy: Current Nutrition Therapy: - Oral Diet: Carb Control 4 carbs/meal (1800kcals/day) Routes of Feeding: Oral Liquids: Thin Liquids Daily Fluid Restriction: no Last Modified Barium Swallow with Video (Video Swallowing Test): not done Treatments at the Time of Hospital Discharge: Respiratory Treatments: none Oxygen Therapy: is not on home oxygen therapy. Ventilator: - No ventilator support Rehab Therapies: Physical Therapy and Occupational Therapy Weight Bearing Status/Restrictions: No weight bearing restirctions Other Medical Equipment (for information only, NOT a DME order): hospital bed Other Treatments: none Patient's personal belongings (please select all that are sent with patient): None RN SIGNATURE: CASE MANAGEMENT/SOCIAL WORK SECTION Inpatient Status Date: 03/08/21 Readmission Risk Assessment Score: Readmission Risk Risk of Unplanned Readmission: 35 Discharging to Facility/ Agency Name: [address] [facility] [address] Dialysis Facility (if applicable) Name: Address: Dialysis Schedule: Phone: Fax: Call Center Coordinator/Occupational Therapist Assistant signature: PHYSICIAN SECTION Prognosis: Fair Condition at Discharge: Stable Rehab Potential (if transferring to Rehab): Fair Recommended Labs or Other Treatments After Discharge: None Physician Certification: I certify the above information and transfer of Salazar Coyle is necessary for the continuing treatment of the diagnosis listed and that she requires Correction Facility for greater 30 days. Update Admission H&P: No change in H&P PHYSICIAN SIGNATURE: Leonel Sood MD - 03/15/2021 General Orthopedic Discharge Instructions The following instructions have been prepared to help you when you leave the hospital. These guidelines are for the post-surgery period. Medications: see medication instructions. Please be sure to read and understand the information provided by your pharmacy. Ask your Pharmacist if any questions. Wound Care and Hygiene: -Wound vac changes per wound care team Call Your Doctor for: -Excessive bleeding/swelling of incision -Fever with temperature above 100 F Contact your surgeon's office (Dr. Flores), to set up an appointment in 2 weeks, or if you have any problems or questions. documented in this encounter [facility] Work Phone: 04-15-2021 History of Present illness Narrative Was informed by primary nurse plan for pt to be transferred to SNF this afternoon. Spoke with primary nurse regarding removal of wound vac dressing and applying a temporary WTD dressing to wound for pt transfer to next facility. NPWT will be continued at next facility with their equipment. Primary nurse verbalized understanding. Images from the original note were not included. Med Team Progress Note Salazar Coyle : 1950(70 y.o.) Date: April 15, 2021 Med Team: B Attending: Dr. Plascencia Chief Complaint: AMS Subjective: Ms Coyle is a 70 YO F w/ a PMHx of a-fib, TIIDM, lymphedema, & morbid obesity who was admitted on 03/09/21 for a right foot wound and was found to have osteomyelitis. While hospitalized became encephalopathic and hypotensive and subsequently developed acute hypoxic RF requiring intubation and pressor support. Underwent I&D of the R foot on 03/15/21 which grew providencia stuartii, pseudomonas, and MRSA which was subsequently treated with IV abx. During her stay developed WHITLEY requiring HD. With improving renal function, tunneled dialysis catheter was removed and hemodialysis was ceased. Nephrology will continue to follow outpatient, with plans for discharge to [facility]. - No acute events o/n, however pt became irritable this am when labs redrawn 2/to hemolyzed sample. Received prn oxy x1 yesterday (2038). Pt hypertensive w/ SBP 192 yesterday, otherwise VSS. No daily labs available due to hemolyzed sample and pt refusal for repeat draw. - Currently pt denying daily labs, denies any changes in prior sx. No new complaints. Awaiting return to [facility]. Agree with above Review of Systems Constitutional: Negative for chills, diaphoresis, fatigue and fever. HENT: Negative for congestion, postnasal drip, rhinorrhea and sinus pain. Respiratory: Negative for cough, chest tightness, shortness of breath and wheezing. Cardiovascular: Negative for chest pain, palpitations and leg swelling. Gastrointestinal: Negative for abdominal distention, abdominal pain, constipation, diarrhea, nausea and vomiting. Genitourinary: Negative for flank pain and hematuria. Musculoskeletal: Negative for arthralgias and back pain. Skin: Negative for color change. Neurological: Negative for dizziness, weakness and headaches. Psychiatric/Behavioral: Negative for agitation and behavioral problems. Scheduled Meds: insulin glargine 28 Units SubCUTAneous Nightly insulin lispro 8 Units SubCUTAneous TID WC apixaban 5 mg Oral BID sennosides-docusate sodium 2 tablet Oral Daily collagenase Topical Q MWF Baclofen 5 mg Oral BID melatonin 3 mg Oral Nightly acetaminophen 975 mg Oral TID aspirin 81 mg Oral Daily atorvastatin 20 mg Oral Daily calcium-cholecalciferol 1 tablet Oral Daily donepezil 5 mg Oral Nightly pantoprazole 40 mg Oral QAM AC gabapentin 100 mg Oral BID insulin lispro 0-6 Units SubCUTAneous TID WC mineral oil-hydrophilic petrolatum Topical BID miconazole Topical BID stomahesive in petrolatum Topical BID Continuous Infusions: dextrose sodium chloride dextrose PRN meds used in last 24hrs: Oxycodone Objective: BP (!) 192/77 Pulse 86 Temp 97.6 F (36.4 C) (Temporal) Resp 16 Ht 5' 2" (1.575 m) Wt (!) 389 lb 4.8 oz (176.6 kg) SpO2 94% BMI 71.20 kg/m Physical Exam Constitutional: General: She is not in acute distress. Appearance: Normal appearance. She is obese. She is not diaphoretic. HENT: Head: Normocephalic and atraumatic. Right Ear: External ear normal. Left Ear: External ear normal. Nose: Nose normal. Mouth/Throat: Mouth: Mucous membranes are moist. Pharynx: Oropharynx is clear. Eyes: General: No scleral icterus. Conjunctiva/sclera: Conjunctivae normal. Pupils: Pupils are equal, round, and reactive to light. Cardiovascular: Rate and Rhythm: Normal rate and regular rhythm. Heart sounds: No murmur heard. No friction rub. No gallop. Pulmonary: Effort: Pulmonary effort is normal. No respiratory distress. Breath sounds: Normal breath sounds. No wheezing or rales. Chest: Chest wall: No tenderness. Abdominal: General: Bowel sounds are normal. There is no distension. Palpations: Abdomen is soft. There is no mass. Tenderness: There is no abdominal tenderness. There is no guarding. Musculoskeletal: General: Swelling, tenderness (improving) and deformity present. Normal range of motion. Cervical back: Normal range of motion and neck supple. No rigidity. Right lower leg: Edema present. Left lower leg: Edema present. Comments: Leg wounds bandaged Lymphadenopathy: Cervical: No cervical adenopathy. Skin: General: Skin is warm and dry. Findings: Lesion present. No bruising, erythema or rash. Neurological: Mental Status: She is alert and oriented to person, place, and time. Sensory: No sensory deficit. Motor: Weakness (improving) present. Coordination: Coordination normal. Psychiatric: Mood and Affect: Mood normal. Behavior: Behavior normal. Select Labs within last 24 hours Assessment and Plan: WHITLEY/ATN on HD - Improving Kidney function - Last HD on 04/06/21 - TDC removed 04/12 - No daily labs available today, however Cr has been steadily improving Agree with above Asymptomatic bacteruria - UA positive for leukocytes & nitrites - Asymptomatic bacteriuria w/chronic jose - No indication for antibiotic therapy at this time Agree with above Acute on Chronic R foot Wound with Positive Providencia Stuartii, Pseudomonas, and MRSA Chronic Lymphedema - I&D on 03/15/21 w/ clean margins - Completed abx therapy - Wound care managing dressing changes. - Oxycodone 5 mg PRN for pain and wound changes Agree with above Type II DM with Hyperglycemia - Serum glucose this am not obtained - POC glucoses have ranged from 151-189 within the past 24h - Continue lantus 28 U nightly - Continue humalog 8 U TID - Continue low dose sliding scale, 3 total units given per sliding scale Agree with above Paroxysmal Afib - CHADSVASC = 4 - Eliquis 5mg BID HTN - Isolated reading w/ SBP 192 on 04/14 @ 2034 - PRN hydralazine for SBP > 160 ordered, not administered - Repeat BP this am with SBP 128 - No previous home medications - BP appears to fluctuate, will evaluate in outpatient setting for need of home control agent HLD - Atorvastatin 20mg daily Hx of Dementia and Delirium - Donepezil 5mg nightly - Delirium precautions Morbid Obesity - Will need outpatient evaluation for obesity Lines and Jose - Tunneled R IJ HD line and PICC line in R cephalic vein removed 04/12 - Jose catheter replaced 04/10/21 Dispo: Plan for discharge to [facility] d/w TCC - Goals of Care: FULL CODE - DVT Prophylaxis: Eliquis - GI Prophylaxis: Protonix daily - Diet: Dysphagia - soft and bite sized 5 carb control Agree with above, she continues to be stable for discharge from IM standpoint. Excess hospital days now tallying 5 and counting. I have personally examined the patient and reviewed the case with the resident and or med student. I have personally taken a history, examined the patient, and performed the associated medical decision making activities. I have reviewed & verified the attested documentation. Unless otherwise noted below, this documentation reflects the history, physical exam, and medical decision making that I performed myself. I agree with the current plan of care including the workup, evaluation, management, and diagnosis. Care plan has been discussed. The above documentation has been reviewed and edited as needed to reflect the findings of my evaluation. Attending comments are in bold. I personally spent over 51% total time of 25 minutes coordinating care. I personally reviewed the chart, data, labs, radiology reports, and discussed the case with the nurse and resident team. Pt refused to have labs redrawn due to first ones hemolyzing, pt began to yell and scream out . Witnessed by 2 nurses. Comprehensive Nutrition Assessment Type and Reason for Visit: Reassess Nutrition Recommendations/Plan: 1. Continue with current diet: dysphagia soft and bite sized, CHO Control. Per MNT protocol will trial magic cup BID (4 oz provides 290 kcals, 9 gm protein) and discontinue Pete BID chocolate Ensure HP at dinner. 2. Consider re-consult LASER PRINTING OPERATOR to evaluate possible upgrade of textures as patient with extended length of stay (37 days) and repetitive menu options on a dysphagia soft and bite sized diet. 3. Request daily weights. 4. Please continue to record % of meals and oral nutrition supplements consumed daily on nursing flow sheets. 5. Monitor weight, labs, I/O, skin assessment, and overall nutritional status. RD will follow up. Nutrition Assessment: Patient admitted on 03/09/21 for a right foot wound and was found to have osteomyelitis. While hospitalized,she became encephalopathic and hypotensive. Patient subsequently developed acute hypoxic respiratory faiure requiring intubation and pressor support. She underwent I&D of the R foot on 03/15/21 which grew providencia stuartii, pseudomonas, and MRSA which was subsequently treated with IV abx. During her stay developed WHITLEY requiring HD. Her last HD was on 04/06. Kidney function improved and TDC removed on 04/12. Discharge anticipated to [facility] today. Staff reports patient only ate bites of breakfast. Patient declined oral nutrition supplement this morning although staff encouraged. He appetite is reported as low. Patient mainly eating pudding, applesauce, and jello. Malnutrition Assessment: Malnutrition Status: At risk for malnutrition (Comment) Context: Acute Illness Findings of the 6 clinical characteristics of malnutrition: Energy Intake: 7 - 50% or less of estimated energy requirements for 5 or more days Weight Loss: Unable to assess Body Fat Loss: No significant body fat loss Muscle Mass Loss: No significant muscle mass loss Fluid Accumulation: 7 - Moderate to Severe (patient with lymphedema) Extremities Dry Cleaning Manager Strength: Not Performed Estimated Daily Nutrient Needs: Energy (kcal): 22-25 kcals/kg IBW = 5641-2192 kcals/day; Weight Used for Energy Requirements: [place] Protein (g): 1.2-1.4g = 60-70g protein/day; Weight Used for Protein Requirements: [place] Fluid (ml/day): per MD; Method Used for Fluid Requirements: Other (Comment) Nutrition Related Findings: Alex = 13, abdomen soft, active bowel sounds, loss of appetite noted on 04/13, BM on 04/12, + 2 BLE edema and non pitting BUE edema. Meds: Eliquis, Lipitor, Lioresal, Calcium Cholecalciferol, Neuronitn, Insulin, Protonix. BMP: Recent Labs 04/12/21 0526 04/13/21 0548 04/14/21 0254 NA 141 142 143 K 3.8 3.7 3.9 CL 106 107 107 CO2 29 27 25 BUN 31* 28* 24* CREATININE 1.46* 1.42* 1.32* GLUCOSE 204* 173* 154* CALCIUM 8.6 8.7 8.8 PHOS 4.7* 4.4 4.4 HEPATIC: No results for input(s): AST, ALT, ALB, BILITOT, ALKPHOS in the last 72 hours. Wounds: Right foot surgical incision; bilateral buttocks and posterior thigh MASD due to incontinence; bilateral breast, abdominal fold, bilateral buttock, and posterior thigh fungal dermatitis, BLE lymphedema. Current Nutrition Therapies: ADULT ORAL NUTRITION SUPPLEMENT; Dinner; Diabetic Oral Supplement ADULT DIET; Dysphagia - Soft and Bite Sized; 5 carb choices (75 gm/meal) ADULT ORAL NUTRITION SUPPLEMENT; Breakfast, Lunch; Wound Healing Oral Supplement Anthropometric Measures: Height: 5' 2" (157.5 cm) Current Body Weight: 389 lb (176.4 kg) (04/09/21 bed scale) Admission Body Weight: 400 lb (181.4 kg) (initially stated) Usual Body Weight: (No recent weight hx in chart to review, noted pt started on HD this admit) [place] Body Weight: 110 lbs; Nutrition Interventions: Food and/or Nutrient Delivery: Continue Current Diet,Continue Oral Nutrition Supplement Nutrition Education/Counseling: Education not appropriate Coordination of Nutrition Care: Continue to monitor while inpatient Goals: Patient consume > 50% of meals and oral nutrition supplements. Nutrition Monitoring and Evaluation: Behavioral-Environmental Outcomes: None Identified Food/Nutrient Intake Outcomes: Food and Nutrient Intake,Supplement Intake,Vitamin/Mineral Intake Physical Signs/Symptoms Outcomes: Biochemical Data,Chewing or Swallowing,GI Status,Fluid Status or Edema,Meal Time Behavior,Nutrition Focused Physical Findings,Skin,Weight Discharge Planning: Too soon to determine Contact: Pager [phone] Images from the original note were not included. [facility] Wound Care follow up Note Salazar Coyle AGE: 70 y.o. GENDER: female : 1950 Subjective: HISTORY of PRESENT ILLNESS HPI Salazar Coyle is a 70 y.o. female who presents for a wound care follow up. History of Wound Context: s/p right foot I&D w vac application on 03/15 Wound vac intact. No leaks or drainage in canister. PAST MEDICAL HISTORY Diagnosis Date A-fib (HCC) Anemia Diabetes (HCC) Lymphedema Obesity PAST SURGICAL HISTORY History reviewed. No pertinent surgical history. FAMILY HISTORY History reviewed. No pertinent family history. SOCIAL HISTORY Social History Tobacco Use Smoking status: Not on file Smokeless tobacco: Not on file Substance Use Topics Alcohol use: Not on file Drug use: Not on file ALLERGIES No Known Allergies MEDICATIONS No current facility-administered medications on file prior to encounter. Current Outpatient Medications on File Prior to Encounter Medication Sig Dispense Refill acetaminophen (TYLENOL) 325 MG tablet Take 975 mg by mouth 3 times daily Ascorbic Acid (VITAMIN C) 250 MG tablet Take 500 mg by mouth daily aspirin 81 MG chewable tablet Take 81 mg by mouth daily atorvastatin (LIPITOR) 20 MG tablet Take 20 mg by mouth daily calcium-vitamin D (OSCAL-500) 500-200 MG-UNIT per tablet Take 1 tablet by mouth daily docusate sodium (COLACE) 100 MG capsule Take 100 mg by mouth 2 times daily donepezil (ARICEPT) 5 MG tablet Take 5 mg by mouth nightly oxyCODONE 5 MG capsule Take 5 mg by mouth every 6 hours as needed for Pain. ELIQUIS 5 MG TABS tablet 5 mg 2 times daily REVIEW OF SYSTEMS Pertinent items are noted in HPI. Objective: BP (!) 140/86 Pulse 79 Temp 97.5 F (36.4 C) (Temporal) Resp 24 Ht 5' 2" (1.575 m) Wt (!) 389 lb 4.8 oz (176.6 kg) SpO2 94% BMI 71.20 kg/m PHYSICAL EXAM General Appearance: alert and oriented to person, place and time, well-developed and well-nourished, in no acute distress Right lateral foot: dressing intact Right heel: dressing intact Left foot: dry scaling and edema noted Left heel: pink, blanchable. BLE: No seeping noted. Moderate edema. Bilateral buttock and posterior thigh, improving: Resolved. Incontinence noted. LABS CBC: Lab Results Component Value Date WBC 4.9 04/14/2021 HGB 9.0 04/14/2021 HCT 28.5 04/14/2021 MCV 87.0 04/14/2021 PLT 225 04/14/2021 BMP: Lab Results Component Value Date NA 143 04/14/2021 K 3.9 04/14/2021 CL 107 04/14/2021 CO2 25 04/14/2021 PHOS 4.4 04/14/2021 BUN 24 04/14/2021 CREATININE 1.32 04/14/2021 PT/INR: Lab Results Component Value Date PROTIME 11.4 03/14/2021 INR 1.1 03/14/2021 Prealbumin: No results found for: PREALBUMIN Albumin: Lab Results Component Value Date LABALBU 3.1 03/26/2021 Sed Rate: Lab Results Component Value Date SEDRATE 62 03/08/2021 Micro: Lab Results Component Value Date BC No growth at 5 days. 03/08/2021 Assessment/Plan: 1. Right foot surgical - continue current treatment 2. Bilateral buttock and posterior thigh MASD d/t incontinence - et mix bid and prn - turn and reposition every 2 hours - bariatric bed 3. Bilateral breast, abdominal fold, bilateral buttock, and posterior thigh fungal dermatitis - cleanse with mild soap and water, allow to dry fully, miconazole powder bid and prn 4. BLE lymphedema - leave SPRINKLING SYSTEM IRRIGATOR - elevate above level of heart TID for at least 30 min Nutritional support Follow up with wound care Any questions or concerns please vocera or perfect serve "wound care". Thank you for the consult! I personally obtained the arias and critical portions of the history and physical exam. I reviewed the labs, imaging studies, and electronic medical record. I reviewed the chart documentation and discussed the patient with treatment team members. I have edited the note to reflect my clinical findings and my assessment and plan. Please note, the time of this note does not reflect the time I saw this patient today, but the time of this documentaton. Portions of this note including HPI, ROS, impression/plan, and examination may have been copied forward from admission to today as to provide important historical information essential in contributing to medical decision making. Documentation has been reviewed and edited as necessary to support clinical decision making for today's visit and to reflect my own independent evaluation of this patient. Decision making for today's visit and to reflect my own independent evaluation of this patient. [facility] Progress Note Subjective/ Salazar Coyle 70 y.o. year old female who we are seeing in consultation for WHITLEY. All labs / data/ chart and interval events are noted BP has been stable Edema is controlled No issues with urine output Lytes are better Responding to current rx at this time No other new issues No change in the PFSH at this time ROS otherwise negative MEDICATIONS: Current Facility-Administered Medications Medication Dose Route Frequency Provider Last Rate Last Admin insulin glargine (LANTUS) injection vial 28 Units 28 Units SubCUTAneous Nightly Ladonna Ochoa DO 28 Units at 04/13/211999 insulin lispro (HUMALOG) injection vial 8 Units 8 Units SubCUTAneous TID Ladonna Ochoa DO 8 Units at 04/14/21 0910 glucose (GLUTOSE) 40 % oral gel 15 g 15 g Oral PRN Ladonna Shaub, DO dextrose 50 % IV solution 12.5 g IntraVENous PRN Ladonna Shaub, DO glucagon (rDNA) injection 1 mg 1 mg IntraMUSCular PRN Ladonna Shaub, DO dextrose 5 % solution 100 mL/hr IntraVENous PRN Ladonna Shaub, DO hydrALAZINE (APRESOLINE) injection 10 mg 10 mg IntraVENous Q6H PRN Ladonna Shaub, DO apixaban (ELIQUIS) tablet 5 mg 5 mg Oral BID Aubrie Whiting MD 5 mg at 04/14/21 0937 sennosides-docusate sodium (SENOKOT-S) 8.6-50 MG tablet 2 tablet 2 tablet Oral Daily Zhao Willis MD 2 tablet at 04/14/21 0938 collagenase ointment Topical Q MWF Phillip Victor MD Given by Other at 04/13/21 1350 oxyCODONE (ROXICODONE) immediate release tablet 5 mg 5 mg Oral Q6H PRN Zhao Willis MD 5 mg at 04/13/21 1347 heparin (porcine) injection 2,100 Units 2,100 Units IntraCATHeter PRN Reynold Garner MD 2,100 Units at 04/04/21 1200 heparin (porcine) injection 2,200 Units 2,200 Units IntraCATHeter PRN Reynold Garner MD 2,200 Units at 04/04/21 1200 baclofen (LIORESAL) tablet 5 mg 5 mg Oral BID Juan Adams DO 5 mg at 04/14/21 0937 melatonin tablet 3 mg 3 mg Oral Nightly Keon Young MD 3 mg at 04/13/21 195 acetaminophen (TYLENOL) tablet 975 mg 975 mg Oral TID Oriana Cho, DO 975 mg at 04/14/21 0937 aspirin chewable tablet 81 mg 81 mg Oral Daily Oriana Cho, DO 81 mg at 04/14/21 0938 atorvastatin (LIPITOR) tablet 20 mg 20 mg Oral Daily Oriana Cho, DO 20 mg at 04/14/21 0938 calcium-cholecalciferol 500-200 MG-UNIT per tablet 1 tablet 1 tablet Oral Daily Oriana Cho, DO 1 tablet at 04/14/21 0938 donepezil (ARICEPT) tablet 5 mg 5 mg Oral Nightly Oriana Cho, DO 5 mg at 04/13/211954 pantoprazole (PROTONIX) tablet 40 mg 40 mg Oral QAM AC Oriana Cho, DO 40 mg at 04/14/21 0551 gabapentin (NEURONTIN) capsule 100 mg 100 mg Oral BID Oriana Cho, DO 100 mg at 04/14/21 0938 insulin lispro (HUMALOG) injection vial 0-6 Units 0-6 Units SubCUTAneous TID WC Oriana Cho, DO 1 Units at 04/14/21 0845 mineral oil-hydrophilic petrolatum (AQUAPHOR) ointment Topical BID Oriana Cho, DO Given at 04/13/21 195 polyethylene glycol (GLYCOLAX) packet 17 g 17 g Per G Tube Daily PRN Oriana Cho, DO ipratropium-albuterol (DUONEB) nebulizer solution 1 ampule 1 ampule Inhalation Q4H PRN Leonel Sood MD sodium chloride flush 0.9 % injection 10 mL 10 mL IntraCATHeter Q12H Leonel Sood MD 10 mL at 04/11/21 0303 sodium chloride flush 0.9 % injection 10 mL 10 mL IntraCATHeter PRN Leonel Sood MD heparin flush 100 UNIT/ML injection 250 Units 250 Units IntraCATHeter PRN Leonel Sood MD 250 Units at 04/01/21 1736 miconazole (MICOTIN) 2 % powder Topical BID Leonel Sood MD Given at 04/14/21 0940 stomahesive in petrolatum (ET MIX) Topical PRN Leonel Sood MD Given by Other at 04/08/21 0900 stomahesive in petrolatum (ET MIX) Topical BID Leonel Sood MD Given at 04/14/21 0940 sodium chloride flush 0.9 % injection 5-40 mL 5-40 mL IntraVENous 2 times per day Leonel Sood MD 10 mL at 04/13/21 0801 sodium chloride flush 0.9 % injection 5-40 mL 5-40 mL IntraVENous PRN Leonel Sood MD 0.9 % sodium chloride infusion 25 mL IntraVENous PRN Leonel Sood MD ondansetron (ZOFRAN-ODT) disintegrating tablet 4 mg 4 mg Oral Q8H PRN Leonel Sood MD Or ondansetron (ZOFRAN) injection 4 mg 4 mg IntraVENous Q6H PRN Leonel Sood MD glucose (GLUTOSE) 40 % oral gel 15 g 15 g Oral PRN Leonel Sood MD dextrose 50 % IV solution 12.5 g IntraVENous PRN Leonel Sood MD glucagon (rDNA) injection 1 mg 1 mg IntraMUSCular PRN Leonel Sood MD dextrose 5 % solution 100 mL/hr IntraVENous PRN Leonel Sood MD Objective/ Vitals: 04/13/21 0757 04/13/21202204/14/21 0747 04/14/21 0900 BP: (!) 141/60 (!) 152/55 (!) 156/104 (!) 140/86 Pulse: 73 59 79 Resp: 20 16 24 Temp: 98.3 F (36.8 C) 96.9 F (36.1 C) 97.5 F (36.4 C) TempSrc: Temporal Temporal Temporal SpO2: 98% 94% 94% Weight: Height: 24HR INTAKE/OUTPUT: Intake/Output Summary (Last 24 hours) at 04/14/2021 1131 Last data filed at 04/14/2021 0800 Gross per 24 hour Intake 480 ml Output 825 ml Net -345 ml Appearance: no acute distress, well appearing, morbidly obese Neck: supple, no JVD Respiratory: breathing unlabored, lungs with diminished breath sounds b/l Cardiovascular: heart RRR without m/g/r. B/l LE edema Gastrointestinal: abdomen soft, non-tender, non-distended, normoactive bowel sounds. Psychiatric: awake, normal mood and range of affect Labs: Recent Labs 04/12/21 0504/13/21 0548 04/14/21 0254 WBC 4.3 4.4 4.9 HGB 8.5* 8.6* 9.0* HCT 27.2* 26.9* 28.5* MCV 87.7 87.3 87.0 PLT 209 195 225 Recent Labs 04/12/21 0526 04/13/21 0548 04/14/21 0254 NA 141 142 143 K 3.8 3.7 3.9 CL 106 107 107 CO2 29 27 25 GLUCOSE 204* 173* 154* PHOS 4.7* 4.4 4.4 BUN 31* 28* 24* CREATININE 1.46* 1.42* 1.32* Assessment/ Salazar Coyle 70 y.o. year old female who we are seeing in consultation for WHITLEY. #WHITLEY/ATN, resolving, on MH TEACHER since 03/17/2021 - off HD since 04/06/21 #HTN #Metabolic Encephalopathy suspected from gabapentin/baclofen #Acute on Chronic Resp Acidosis from PHOEBE #Acute on Chronic Bilateral lower ext Cellulitis #Anemia #DM2 Plan/ -Scr improved, good uop, BP stable. WHITLEY resolving. -Was on MH TEACHER 03/17/21-04/06/21. TDC removed 04/12 -OK to give diuretics PRN for volume management -Strict I&Os -Rest of management per primary team -Okay to discharge from nephrology perspective when medically cleared -We will follow peripherally from now on. Please, call us with any questions or concerns. Edyta Alfredo MD [facility] Pager #[phone] 04/14/21 11:31 AM Images from the original note were not included. Med Team Progress Note Salazar Coyle : 1950(70 y.o.) Date: April 14, 2021 Med Team: Alvaro Attending: Dr. Plascencia Chief Complaint: AMS Subjective: Ms Coyle is a 70 YO F w/ a PMHx of a-fib, TIIDM, lymphedema, & morbid obesity who was admitted on 03/09/21 for a right foot wound and was found to have osteomyelitis. While hospitalized became encephalopathic and hypotensive and subsequently developed acute hypoxic RF requiring intubation and pressor support. Underwent I&D of the R foot on 03/15/21 which grew providencia stuartii, pseudomonas, and MRSA which was subsequently treated with IV abx. During her stay developed WHITLEY requiring HD. With improving renal function, tunneled dialysis catheter was removed and hemodialysis was ceased. Nephrology will continue to follow outpatient, with plans for discharge to [facility]. - No acute events o/n. Received prn oxy x1 yesterday. VSS, pt with SBP 156 this am, SpO2 94% on RA. Daily labs notable for improving WHITLEY (BUN 24, Cr 1.32), stable hyperglycemia (serum glucose 154), and stable anemia (Hgb 9.0). - Currently pt with no complaints, changes in functional status. Awaiting transfer to SNF. Agree with above Review of Systems Constitutional: Negative for chills, diaphoresis, fatigue and fever. HENT: Negative for congestion, postnasal drip, rhinorrhea and sinus pain. Respiratory: Negative for cough, chest tightness, shortness of breath and wheezing. Cardiovascular: Negative for chest pain, palpitations and leg swelling. Gastrointestinal: Negative for abdominal distention, abdominal pain, constipation, diarrhea, nausea and vomiting. Genitourinary: Negative for flank pain and hematuria. Musculoskeletal: Negative for arthralgias and back pain. Skin: Negative for color change. Neurological: Negative for dizziness, weakness and headaches. Psychiatric/Behavioral: Negative for agitation and behavioral problems. Scheduled Meds: insulin glargine 28 Units SubCUTAneous Nightly insulin lispro 8 Units SubCUTAneous TID WC apixaban 5 mg Oral BID sennosides-docusate sodium 2 tablet Oral Daily collagenase Topical Q MWF Baclofen 5 mg Oral BID melatonin 3 mg Oral Nightly acetaminophen 975 mg Oral TID aspirin 81 mg Oral Daily atorvastatin 20 mg Oral Daily calcium-cholecalciferol 1 tablet Oral Daily donepezil 5 mg Oral Nightly pantoprazole 40 mg Oral QAM AC gabapentin 100 mg Oral BID insulin lispro 0-6 Units SubCUTAneous TID WC mineral oil-hydrophilic petrolatum Topical BID sodium chloride flush 10 mL IntraCATHeter Q12H miconazole Topical BID stomahesive in petrolatum Topical BID sodium chloride flush 5-40 mL IntraVENous 2 times per day Continuous Infusions: dextrose sodium chloride dextrose PRN meds used in last 24hrs: Oxycodone Objective: BP (!) 156/104 Pulse 79 Temp 97.5 F (36.4 C) (Temporal) Resp 24 Ht 5' 2" (1.575 m) Wt (!) 389 lb 4.8 oz (176.6 kg) SpO2 94% BMI 71.20 kg/m Physical Exam Constitutional: General: She is not in acute distress. Appearance: Normal appearance. She is obese. She is not diaphoretic. HENT: Head: Normocephalic and atraumatic. Right Ear: External ear normal. Left Ear: External ear normal. Nose: Nose normal. Mouth/Throat: Mouth: Mucous membranes are moist. Pharynx: Oropharynx is clear. Eyes: General: No scleral icterus. Conjunctiva/sclera: Conjunctivae normal. Pupils: Pupils are equal, round, and reactive to light. Cardiovascular: Rate and Rhythm: Normal rate and regular rhythm. Heart sounds: No murmur heard. No friction rub. No gallop. Pulmonary: Effort: Pulmonary effort is normal. No respiratory distress. Breath sounds: Normal breath sounds. No wheezing or rales. Chest: Chest wall: No tenderness. Abdominal: General: Bowel sounds are normal. There is no distension. Palpations: Abdomen is soft. There is no mass. Tenderness: There is no abdominal tenderness. There is no guarding. Musculoskeletal: General: Swelling, tenderness (improving) and deformity present. Normal range of motion. Cervical back: Normal range of motion and neck supple. No rigidity. Right lower leg: Edema present. Left lower leg: Edema present. Comments: Leg wounds bandaged Lymphadenopathy: Cervical: No cervical adenopathy. Skin: General: Skin is warm and dry. Findings: Lesion present. No bruising, erythema or rash. Neurological: Mental Status: She is alert and oriented to person, place, and time. Sensory: No sensory deficit. Motor: Weakness (improving) present. Coordination: Coordination normal. Psychiatric: Mood and Affect: Mood normal. Behavior: Behavior normal. [facility] within last 24 hours Lab Results Component Value Date/Time WBC 4.9 04/14/2021 02:54 AM Hemoglobin 9.0 (L) 04/14/2021 02:54 AM Hematocrit 28.5 (L) 04/14/2021 02:54 AM Platelets 225 04/14/2021 02:54 AM MCV 87.0 04/14/2021 02:54 AM Lab Results Component Value Date/Time Sodium 143 04/14/2021 02:54 AM Potassium 3.9 04/14/2021 02:54 AM Chloride 107 04/14/2021 02:54 AM CO2 25 04/14/2021 02:54 AM BUN 24 (H) 04/14/2021 02:54 AM CREATININE 1.32 (H) 04/14/2021 02:54 AM Glucose 154 (H) 04/14/2021 02:54 AM Calcium 8.8 04/14/2021 02:54 AM Phosphorus 4.4 04/14/2021 02:54 AM Assessment and Plan: WHITLEY/ATN on HD - Improving Kidney function - Last HD on 04/06/21 - TDC removed 04/12 - Cr 1.32 today, stable and improving Agree with above Asymptomatic bacteruria - UA positive for leukocytes & nitrites - Asymptomatic bacteriuria w/chronic jose - No indication for antibiotic therapy at this time Agree with above Acute on Chronic R foot Wound with Positive Providencia Stuartii, Pseudomonas, and MRSA Chronic Lymphedema - I&D on 03/15/21 w/ clean margins - Completed abx therapy - Wound care managing dressing changes. - Oxycodone 5 mg PRN for pain and wound changes Agree with above Type II DM with Hyperglycemia - Serum glucose this am 154 - POC glucose yesterday ranging from 132-152 - Continue lantus 28 U nightly - Continue humalog 8 U TID - Continue low dose sliding scale Agree with above Paroxysmal Afib - CHADSVASC = 4 - Eliquis 5mg BID HTN - Stable 163/69 - PRN hydralazine for SBP > 160 - No previous home medications - BP appears to fluctuate, will evaluate in outpatient setting for need of home control agent HLD - Atorvastatin 20mg daily Hx of Dementia and Delirium - Donepezil 5mg nightly - Delirium precautions Morbid Obesity - Will need outpatient evaluation for obesity Lines and Jose - Tunneled R IJ HD line and PICC line in R cephalic vein removed 04/12 - Jose catheter replaced 04/10/21 Dispo: Plan for discharge to [facility] today, given stable and improving medical and renal status. 04/12 Covid test negative.Agree with above, continues to be stable from internal medicine standpoint. Ready for discharge [facility]. - Goals of Care: FULL CODE - DVT Prophylaxis: Eliquis - GI Prophylaxis: Protonix daily - Diet: Dysphagia - soft and bite sized 5 carb control I have personally examined the patient and reviewed the case with the resident and or med student. I have personally taken a history, examined the patient, and performed the associated medical decision making activities. I have reviewed & verified the attested documentation. Unless otherwise noted below, this documentation reflects the history, physical exam, and medical decision making that I performed myself. I agree with the current plan of care including the workup, evaluation, management, and diagnosis. Care plan has been discussed. The above documentation has been reviewed and edited as needed to reflect the findings of my evaluation. Attending comments are in bold. I personally spent over 51% total time of 25 minutes coordinating care. I personally reviewed the chart, data, labs, radiology reports, and discussed the case with the nurse and resident team. Images from the original note were not included. Spoke with primary nurse and TCC regarding d/c plan for SNF. Per TCC, still awaiting final approval and time for transfer. Will plan to change wound vac dressing today so dressing is completed in the event pt is not d/c'd today. Wound Care team in to change wound vac dressing to R foot. Old wound vac dressing soaked with saline and removed without difficulties. Removed 1 piece of white foam, 1 piece of black foam. Full thickness surgical wound to R plantar foot. For wound measurements, please see wound care note from 04/11. Wound bed tissue is 70% red tissue with granulation, and 30% yellow slough. Bone exposed. Moderate amount of serosang drainage. No purulence or active bleeding noted. Periwound tissue intact, no erythema or induration noted. Coloplast strip paste applied along base of toes to help maintain dressing seal. Santyl applied to areas of yellow slough. White foam x1 piece placed in base of wound, then topped with black foam x1 piece. Trac pad bridged to dorsal foot. Dressing well sealed. NPWT pressure set to -125mmHg continuous per order. Palpable pedal pulses +1 bilaterally. BL feet noted to have +2 pitting edema. While lifting R lower leg to finish assessment, pt screaming in pain, yelling "Plese stop! Don't lift it!" Stage 2 pressure injury on R plantar heel pink with area of red nongranulated tissue. Difficult to fully assess d/t pt's screaming while attempting to lift foot. Epithelial tissue noted around edges with superficial open areas. No drainage noted. Padded with foam dressing, wrapped with kerlix. Pt wearing heel boots when in bed. Pt began to quiet down at the end of assessment. Primary nurse in room administering pain medications. Primary nurse informed of barnes for leaving dressing intact and clamp wound vac tubing at time of transfer to SNF. [facility] Progress Note Subjective/ Salazar [place] 70 y.o. year old female who we are seeing in consultation for WHITLEY. All labs / data/ chart and interval events are noted BP has been stable Edema is controlled No issues with urine output Lytes are better AMS waxing and waining Responding to current rx at this time No other new issues No change in the PFSH at this time ROS otherwise negative MEDICATIONS: Current Facility-Administered Medications Medication Dose Route Frequency Provider Last Rate Last Admin insulin glargine (LANTUS) injection vial 28 Units 28 Units SubCUTAneous Nightly Ladonna Shaub, DO 28 Units at 04/12/21 210 insulin lispro (HUMALOG) injection vial 8 Units 8 Units SubCUTAneous TID WC Ladonna Shaub, DO 8 Units at 04/13/21 0805 glucose (GLUTOSE) 40 % oral gel 15 g 15 g Oral PRN Ladonna Shaub, DO dextrose 50 % IV solution 12.5 g IntraVENous PRN Ladonna Shaub, DO glucagon (rDNA) injection 1 mg 1 mg IntraMUSCular PRN Ladonna Shaub, DO dextrose 5 % solution 100 mL/hr IntraVENous PRN Ladonna Shaub, DO hydrALAZINE (APRESOLINE) injection 10 mg 10 mg IntraVENous Q6H PRN Ladonna Shaub, DO apixaban (ELIQUIS) tablet 5 mg 5 mg Oral BID Aubrie Whiting MD 5 mg at 04/13/21 0758 sennosides-docusate sodium (SENOKOT-S) 8.6-50 MG tablet 2 tablet 2 tablet Oral Daily Zhao Willis MD 2 tablet at 04/13/21 0758 collagenase ointment Topical Q MWF Phillip Victor MD Given at 04/11/21 1101 oxyCODONE (ROXICODONE) immediate release tablet 5 mg 5 mg Oral Q6H PRN Zhao Willis MD 5 mg at 04/12/21 211 heparin (porcine) injection 2,100 Units 2,100 Units IntraCATHeter PRN Reynold Garner MD 2,100 Units at 04/04/21 1200 heparin (porcine) injection 2,200 Units 2,200 Units IntraCATHeter PRN Reynold Garner MD 2,200 Units at 04/04/21 1200 baclofen (LIORESAL) tablet 5 mg 5 mg Oral BID Juan dAams, DO 5 mg at 04/13/21 0758 melatonin tablet 3 mg 3 mg Oral Nightly Keon Young MD 3 mg at 04/12/212101 acetaminophen (TYLENOL) tablet 975 mg 975 mg Oral TID Oriana Cho, DO 975 mg at 04/13/21 0757 aspirin chewable tablet 81 mg 81 mg Oral Daily Oriana Cho, DO 81 mg at 04/13/21 0757 atorvastatin (LIPITOR) tablet 20 mg 20 mg Oral Daily Oriana Cho, DO 20 mg at 04/13/21 0758 calcium-cholecalciferol 500-200 MG-UNIT per tablet 1 tablet 1 tablet Oral Daily Oriana Cho, DO 1 tablet at 04/13/21 0758 donepezil (ARICEPT) tablet 5 mg 5 mg Oral Nightly Oriana Cho, DO 5 mg at 04/12/212101 pantoprazole (PROTONIX) tablet 40 mg 40 mg Oral QAM AC Oriana Cho, DO 40 mg at 04/13/21 0615 gabapentin (NEURONTIN) capsule 100 mg 100 mg Oral BID Oriana Cho, DO 100 mg at 04/13/21 0757 insulin lispro (HUMALOG) injection vial 0-6 Units 0-6 Units SubCUTAneous TID WC Oriana Cho, DO 1 Units at 04/13/21 0804 mineral oil-hydrophilic petrolatum (AQUAPHOR) ointment Topical BID Oriana Cho, DO Given at 04/13/21 0800 polyethylene glycol (GLYCOLAX) packet 17 g 17 g Per G Tube Daily PRN Oriana Cho, DO ipratropium-albuterol (DUONEB) nebulizer solution 1 ampule 1 ampule Inhalation Q4H PRN Leonel Sood MD sodium chloride flush 0.9 % injection 10 mL 10 mL IntraCATHeter Q12H Leonel Sood MD 10 mL at 04/11/21 0303 sodium chloride flush 0.9 % injection 10 mL 10 mL IntraCATHeter PRN Leonel Sood MD heparin flush 100 UNIT/ML injection 250 Units 250 Units IntraCATHeter PRN Leonel Sood MD 250 Units at 04/01/21 1736 miconazole (MICOTIN) 2 % powder Topical BID Leonel Sood MD Given at 04/13/21 0759 stomahesive in petrolatum (ET MIX) Topical PRN Leonel Sood MD Given by Other at 04/08/21 0900 stomahesive in petrolatum (ET MIX) Topical BID Leonel Sood MD Given at 04/13/21 0800 sodium chloride flush 0.9 % injection 5-40 mL 5-40 mL IntraVENous 2 times per day Leonel Sood MD 10 mL at 04/13/21 0801 sodium chloride flush 0.9 % injection 5-40 mL 5-40 mL IntraVENous PRN Leonel Sood MD 0.9 % sodium chloride infusion 25 mL IntraVENous PRN Leonel Sood MD ondansetron (ZOFRAN-ODT) disintegrating tablet 4 mg 4 mg Oral Q8H PRN Leonel Sood MD Or ondansetron (ZOFRAN) injection 4 mg 4 mg IntraVENous Q6H PRN Leonel Sood MD glucose (GLUTOSE) 40 % oral gel 15 g 15 g Oral PRN Leonel Sood MD dextrose 50 % IV solution 12.5 g IntraVENous PRN Leonel Sood MD glucagon (rDNA) injection 1 mg 1 mg IntraMUSCular PRN Leonel Sood MD dextrose 5 % solution 100 mL/hr IntraVENous PRN Leonel Sood MD Objective/ Vitals: 04/11/21193704/12/2182204/12/21200504/13/21 0757 BP: (!) 163/69 98/68 (!) 162/101 (!) 141/60 Pulse: 72 74 72 73 Resp: 16 20 Temp: 97 F (36.1 C) 97.8 F (36.6 C) 99.2 F (37.3 C) 98.3 F (36.8 C) TempSrc: Temporal Temporal Temporal Temporal SpO2: 97% 94% 93% 98% Weight: Height: 24HR INTAKE/OUTPUT: Intake/Output Summary (Last 24 hours) at 04/13/2021 1151 Last data filed at 04/13/2021 0757 Gross per 24 hour Intake 480 ml Output 900 ml Net -420 ml Appearance: no acute distress, well appearing, obese Neck: supple, no JVD Respiratory: breathing unlabored, lungs with diminished breath sounds b/l Cardiovascular: heart RRR without m/g/r. B/l LE edema Gastrointestinal: abdomen soft, non-tender, non-distended, normoactive bowel sounds. Psychiatric: awake, confused Labs: Recent Labs 04/11/2121704/12/21 0504/13/21 0548 WBC 4.6 4.3 4.4 HGB 8.3* 8.5* 8.6* HCT 26.2* 27.2* 26.9* MCV 87.5 87.7 87.3 PLT 200 209 195 Recent Labs 04/11/2121704/12/21 0526 04/13/21 0548 NA 140 141 142 K 3.5 3.8 3.7 CL 104 106 107 CO2 29 29 27 GLUCOSE 207* 204* 173* PHOS 4.3 4.7* 4.4 BUN 33* 31* 28* CREATININE 1.61* 1.46* 1.42* Assessment/ Salazar Coyle 70 y.o. year old female who we are seeing in consultation for WHITLEY. #WHITLEY/ATN from Normotensive ATN (hypovolemia) on MH TEACHER since 03/17/2021 - off HD since 04/06/20 #HTN #Metabolic Encephalopathy suspected from gabapentin/baclofen #Acute on Chronic Resp Acidosis from PHOEBE #Acute on Chronic Bilateral lower ext Cellulitis #Anemia #DM2 Plan/ -Scr remains stable, good uop, BP stable -originally was iHD per MW schedule, last HD 04/06 -24 hr urine collection - undercoll sample, but current results show CrCl 24% which argues that complete crcl could be even higher. TDC removed 04/12 -OK to give diuretics PRN for volume management -Strict I&Os -Rest of management per primary team -Okay to discharge from nephrology perspective when medically cleared -Repeat labs in 1 week after discharge -We will follow Edyta Alfredo MD [facility] Pager #[phone] 04/13/21 11:51 AM Images from the original note were not included. Med Team Progress Note Salazar Coyle : 1950(70 y.o.) Date: April 13, 2021 Med Team: B Attending: Dr. Plascencia Chief Complaint: AMS Subjective: Ms Coyle is a 70 YO F w/ a PMHx of a-fib, TIIDM, lymphedema, & morbid obesity who was admitted on 03/09/21 for a right foot wound and was found to have osteomyelitis. While hospitalized became encephalopathic and hypotensive and subsequently developed acute hypoxic RF requiring intubation and pressor support. Underwent I&D of the R foot on 03/15/21 which grew providencia stuartii, pseudomonas, and MRSA which was subsequently treated with IV abx. During her stay developed WHITLEY requiring HD. With improving renal function, tunneled dialysis catheter was removed and hemodialysis was ceased. Nephrology will continue to follow outpatient, with plans for discharge to [facility]. 04/13/2021 - No acute events overnight, resting comfortably in bed. - THD and PICC lines removed without complication. No gross erythema, bruising, discharge or pain present at sites. - States that she is ready for discharge to [facility] and is at her baseline at this time. - Denies any chest pain, SOB, weakness, fatigue, fever, or chills. - Covid test negative - Patient continues to improve with minimal intervention and is medically stable at this time. Agree with above Review of Systems Constitutional: Negative for chills, diaphoresis, fatigue and fever. HENT: Negative for congestion, postnasal drip, rhinorrhea and sinus pain. Respiratory: Negative for cough, chest tightness, shortness of breath and wheezing. Cardiovascular: Negative for chest pain, palpitations and leg swelling. Gastrointestinal: Negative for abdominal distention, abdominal pain, constipation, diarrhea, nausea and vomiting. Genitourinary: Negative for flank pain and hematuria. Musculoskeletal: Negative for arthralgias and back pain. Skin: Negative for color change. Neurological: Negative for dizziness, weakness and headaches. Psychiatric/Behavioral: Negative for agitation and behavioral problems. Scheduled Meds: insulin glargine 28 Units SubCUTAneous Nightly insulin lispro 8 Units SubCUTAneous TID WC apixaban 5 mg Oral BID sennosides-docusate sodium 2 tablet Oral Daily collagenase Topical Q MWF Baclofen 5 mg Oral BID melatonin 3 mg Oral Nightly acetaminophen 975 mg Oral TID aspirin 81 mg Oral Daily atorvastatin 20 mg Oral Daily calcium-cholecalciferol 1 tablet Oral Daily donepezil 5 mg Oral Nightly pantoprazole 40 mg Oral QAM AC gabapentin 100 mg Oral BID insulin lispro 0-6 Units SubCUTAneous TID WC mineral oil-hydrophilic petrolatum Topical BID sodium chloride flush 10 mL IntraCATHeter Q12H miconazole Topical BID stomahesive in petrolatum Topical BID sodium chloride flush 5-40 mL IntraVENous 2 times per day Continuous Infusions: dextrose sodium chloride dextrose PRN meds used in last 24hrs: Oxycodone Objective: BP (!) 162/101 Pulse 72 Temp 99.2 F (37.3 C) (Temporal) Resp 16 Ht 5' 2" (1.575 m) Wt (!) 389 lb 4.8 oz (176.6 kg) SpO2 93% BMI 71.20 kg/m Physical Exam Constitutional: General: She is not in acute distress. Appearance: Normal appearance. She is obese. She is not diaphoretic. HENT: Head: Normocephalic and atraumatic. Right Ear: External ear normal. Left Ear: External ear normal. Nose: Nose normal. Mouth/Throat: Mouth: Mucous membranes are moist. Pharynx: Oropharynx is clear. Eyes: General: No scleral icterus. Conjunctiva/sclera: Conjunctivae normal. Pupils: Pupils are equal, round, and reactive to light. Cardiovascular: Rate and Rhythm: Normal rate and regular rhythm. Heart sounds: No murmur heard. No friction rub. No gallop. Pulmonary: Effort: Pulmonary effort is normal. No respiratory distress. Breath sounds: Normal breath sounds. No wheezing or rales. Chest: Chest wall: No tenderness. Abdominal: General: Bowel sounds are normal. There is no distension. Palpations: Abdomen is soft. There is no mass. Tenderness: There is no abdominal tenderness. There is no guarding. Musculoskeletal: General: Swelling, tenderness (improving) and deformity present. Normal range of motion. Cervical back: Normal range of motion and neck supple. No rigidity. Right lower leg: Edema present. Left lower leg: Edema present. Comments: Leg wounds bandaged Lymphadenopathy: Cervical: No cervical adenopathy. Skin: General: Skin is warm and dry. Findings: Lesion present. No bruising, erythema or rash. Neurological: Mental Status: She is alert and oriented to person, place, and time. Sensory: No sensory deficit. Motor: Weakness (improving) present. Coordination: Coordination normal. Psychiatric: Mood and Affect: Mood normal. Behavior: Behavior normal. [facility] within last 24 hours Lab Results Component Value Date/Time WBC 4.4 04/13/2021 05:48 AM Hemoglobin 8.6 (L) 04/13/2021 05:48 AM Hematocrit 26.9 (L) 04/13/2021 05:48 AM Platelets 195 04/13/2021 05:48 AM MCV 87.3 04/13/2021 05:48 AM Lab Results Component Value Date/Time Sodium 142 04/13/2021 05:48 AM Potassium 3.7 04/13/2021 05:48 AM Chloride 107 04/13/2021 05:48 AM CO2 27 04/13/2021 05:48 AM BUN 28 (H) 04/13/2021 05:48 AM CREATININE 1.42 (H) 04/13/2021 05:48 AM Glucose 173 (H) 04/13/2021 05:48 AM Calcium 8.7 04/13/2021 05:48 AM Phosphorus 4.4 04/13/2021 05:48 AM Assessment and Plan: WHITLEY/ATN on HD - Improving Kidney function - Last HD on 04/06/21 - TDC removed 04/12 - Cr 1.42 today, stable and improving Agree with above Asymptomatic bacteruria - UA positive for leukocytes & nitrites - Asymptomatic bacteriuria w/chronic jose - No abx Agree with above Acute on Chronic R foot Wound with Positive Providencia Stuartii, Pseudomonas, and MRSA Chronic Lymphedema - I&D on 03/15/21 w/ clean margins - Completed abx therapy - Wound care managing dressing changes. - Oxycodone 5 mg PRN for pain and wound changes Agree with above Type II DM with Hyperglycemia - Glucose averaging in 200's - Recent recent readings after increasing Lantus and Humalog dosage ~150-200 - Lantus now 28 U nightly - Humalog 8 U TID - Continue low dose sliding scale Paroxysmal Afib - CHADSVASC = 4 - Eliquis 5mg BID HTN - Stable 163/69 - PRN hydralazine for SBP > 160 - No previous home medications - BP appears to fluctuate, will evaluate in outpatient setting for need of home control agent HLD - Atorvastatin 20mg daily Hx of Dementia and Delirium - Donepezil 5mg nightly - Delirium precautions Morbid Obesity - Will need outpatient evaluation for obesity Lines and Jose - Tunneled R IJ HD line and PICC line in R cephalic vein removed 04/12 - Jose catheter replaced 04/10/21 Dispo: Plan for discharge to [facility] today, given stable and improving medical and renal status. 04/12 Covid test negative. Agree with above, patient has been medically stable for discharge for 4 days now. We continue to wait on insurance to approve the discharge to SNF. - Goals of Care: FULL CODE - DVT Prophylaxis: Eliquis - GI Prophylaxis: Protonix daily - Diet: Dysphagia - soft and bite sized 5 carb control I have personally examined the patient and reviewed the case with the resident and or med student. I have personally taken a history, examined the patient, and performed the associated medical decision making activities. I have reviewed & verified the attested documentation. Unless otherwise noted below, this documentation reflects the history, physical exam, and medical decision making that I performed myself. I agree with the current plan of care including the workup, evaluation, management, and diagnosis. Care plan has been discussed. The above documentation has been reviewed and edited as needed to reflect the findings of my evaluation. Attending comments are in bold. [facility] Progress Note Subjective/ Salazar Coyle 70 y.o. year old female who we are seeing in consultation for WHITLEY. All labs / data/ chart and interval events are noted BP has been stable Edema is controlled No issues with urine output Lytes are better AMS waxing and waining Responding to current rx at this time No other new issues No change in the PFSH at this time Unable to obtain complete ROS due to pt's clinical condition MEDICATIONS: Current Facility-Administered Medications Medication Dose Route Frequency Provider Last Rate Last Admin insulin glargine (LANTUS) injection vial 28 Units 28 Units SubCUTAneous Nightly Ladonna Shaub, DO insulin lispro (HUMALOG) injection vial 8 Units 8 Units SubCUTAneous TID WC Ladonna Shaub, DO 8 Units at 04/12/21 1252 glucose (GLUTOSE) 40 % oral gel 15 g 15 g Oral PRN Ladonna Shaub, DO dextrose 50 % IV solution 12.5 g IntraVENous PRN Ladonna Shaub, DO glucagon (rDNA) injection 1 mg 1 mg IntraMUSCular PRN Ladonna Shaub, DO dextrose 5 % solution 100 mL/hr IntraVENous PRN Ladonna Shaub, DO hydrALAZINE (APRESOLINE) injection 10 mg 10 mg IntraVENous Q6H PRN Ladonna Shaub, DO apixaban (ELIQUIS) tablet 5 mg 5 mg Oral BID Aubrie Whiting MD 5 mg at 04/12/21 0815 sennosides-docusate sodium (SENOKOT-S) 8.6-50 MG tablet 2 tablet 2 tablet Oral Daily Zhao Willis MD 2 tablet at 04/12/21 0814 collagenase ointment Topical Q MWF Phillip Victor MD Given at 04/11/21 1101 oxyCODONE (ROXICODONE) immediate release tablet 5 mg 5 mg Oral Q6H PRN Zhao Willis MD 5 mg at 04/11/21 0617 heparin (porcine) injection 2,100 Units 2,100 Units IntraCATHeter PRN Reynold Garner MD 2,100 Units at 04/04/21 1200 heparin (porcine) injection 2,200 Units 2,200 Units IntraCATHeter PRN Reynold Garner MD 2,200 Units at 04/04/21 1200 baclofen (LIORESAL) tablet 5 mg 5 mg Oral BID Juan Betancourtbettie, DO 5 mg at 04/12/21 0814 melatonin tablet 3 mg 3 mg Oral Nightly Keon Young MD 3 mg at 04/11/212024 acetaminophen (TYLENOL) tablet 975 mg 975 mg Oral TID Oriana Cho, DO 975 mg at 04/12/21 1255 aspirin chewable tablet 81 mg 81 mg Oral Daily Oriana Cho, DO 81 mg at 04/12/21 0814 atorvastatin (LIPITOR) tablet 20 mg 20 mg Oral Daily Oriana Cho, DO 20 mg at 04/12/21 0815 calcium-cholecalciferol 500-200 MG-UNIT per tablet 1 tablet 1 tablet Oral Daily Oriana Cho, DO 1 tablet at 04/12/21 0814 donepezil (ARICEPT) tablet 5 mg 5 mg Oral Nightly Oriana Cho, DO 5 mg at 04/11/212026 pantoprazole (PROTONIX) tablet 40 mg 40 mg Oral QAM AC Oriana Cho, DO 40 mg at 04/12/21 0622 gabapentin (NEURONTIN) capsule 100 mg 100 mg Oral BID Oriana Cho, DO 100 mg at 04/12/21 0814 insulin lispro (HUMALOG) injection vial 0-6 Units 0-6 Units SubCUTAneous TID WC Oriana Cho, DO 1 Units at 04/12/21 1251 mineral oil-hydrophilic petrolatum (AQUAPHOR) ointment Topical BID Oriana Cho, DO Given at 04/12/21 0817 polyethylene glycol (GLYCOLAX) packet 17 g 17 g Per G Tube Daily PRN Oriana Cho, DO ipratropium-albuterol (DUONEB) nebulizer solution 1 ampule 1 ampule Inhalation Q4H PRN Leonel Sood MD sodium chloride flush 0.9 % injection 10 mL 10 mL IntraCATHeter Q12H Leonel Sood MD 10 mL at 04/11/21 0303 sodium chloride flush 0.9 % injection 10 mL 10 mL IntraCATHeter PRN Leonel Sood MD heparin flush 100 UNIT/ML injection 250 Units 250 Units IntraCATHeter PRN Leonel Sood MD 250 Units at 04/01/21 1736 miconazole (MICOTIN) 2 % powder Topical BID Leonel Sood MD Given at 04/12/21 0816 stomahesive in petrolatum (ET MIX) Topical PRN Leonel Sood MD Given by Other at 04/08/21 0900 stomahesive in petrolatum (ET MIX) Topical BID Leonel Sood MD Given at 04/12/21 0816 sodium chloride flush 0.9 % injection 5-40 mL 5-40 mL IntraVENous 2 times per day Leonel Sood MD 10 mL at 04/12/21 0815 sodium chloride flush 0.9 % injection 5-40 mL 5-40 mL IntraVENous PRN Leonel Sood MD 0.9 % sodium chloride infusion 25 mL IntraVENous PRN Leonel Sood MD ondansetron (ZOFRAN-ODT) disintegrating tablet 4 mg 4 mg Oral Q8H PRN Leonel Sood MD Or ondansetron (ZOFRAN) injection 4 mg 4 mg IntraVENous Q6H PRN Leonel Sood MD glucose (GLUTOSE) 40 % oral gel 15 g 15 g Oral PRN Leonel Sood MD dextrose 50 % IV solution 12.5 g IntraVENous PRN Leonel Sood MD glucagon (rDNA) injection 1 mg 1 mg IntraMUSCular PRN Leonel Sood MD dextrose 5 % solution 100 mL/hr IntraVENous PRN Leonel Sood MD Objective/ Vitals: 04/10/21204904/11/21 0807 04/11/21 1938 04/12/21 0823 BP: (!) 125/54 (!) 157/72 (!) 163/69 98/68 Pulse: 74 71 72 74 Resp: Temp: 97.3 F (36.3 C) 96.9 F (36.1 C) 97 F (36.1 C) 97.8 F (36.6 C) TempSrc: Temporal Temporal Temporal Temporal SpO2: 92% 94% 97% 94% Weight: Height: 24HR INTAKE/OUTPUT: Intake/Output Summary (Last 24 hours) at 04/12/2021 1518 Last data filed at 04/12/2021 1402 Gross per 24 hour Intake 120 ml Output 950 ml Net -830 ml Appearance: no acute distress, well appearing, obese Neck: supple, no JVD Respiratory: breathing unlabored, lungs with diminished breath sounds b/l Cardiovascular: heart RRR without m/g/r. B/l LEedema Gastrointestinal: abdomen soft, non-tender, non-distended, normoactive bowel sounds. Psychiatric: awake, confused Labs: Recent Labs 04/10/21 0209 04/11/2121704/12/21 0526 WBC 4.5 4.6 4.3 HGB 8.4* 8.3* 8.5* HCT 26.8* 26.2* 27.2* MCV 87.1 87.5 87.7 PLT 211 200 209 Recent Labs 04/10/21 0209 04/10/21 0209 04/10/21 1224 04/11/21 0218 04/12/21 0526 NA 138 -- -- 140 141 K 3.6 -- -- 3.5 3.8 CL 103 -- -- 104 106 CO2 28 -- -- 29 29 GLUCOSE 210* -- -- 207* 204* PHOS 4.2 -- -- 4.3 4.7* BUN 30* -- -- 33* 31* CREATININE 1.59* < > 1.62* 1.61* 1.46* < > = values in this interval not displayed. Assessment/ Salazar Coyle 70 y.o. year old female who we are seeing in consultation for WHITLEY. #WHITLEY/ATN from Normotensive ATN (hypovolemia) on MH TEACHER since 03/17/2021 - off HD since 04/06/20 #HTN #Metabolic Encephalopathy suspected from gabapentin/baclofen #Acute on Chronic Resp Acidosis from PHOEBE #Acute on Chronic Bilateral lower ext Cellulitis #Anemia #DM2 Plan/ -Scr remains stable, good uop, BP stable -originally was iHD per MWF schedule, last HD 04/06 -24 hr urine albino- undercoll sample, but current results show CrCl 24% which argues that complete crcl could be even higher. TDC removed -Pending another 24 hr collection results -OK to give diuretics PRN for volume management -Strict I&Os -Rest of management per primary team -Okay to discharge from nephrology perspective when medically cleared -Repeat labs in 1 week after discharge -we will follow Edyta Alfredo MD [facility] Pager #[phone] 04/12/21 3:18 PM 1405 Order received to remove patient tunneled HD catheter. Pt educated. Pt laid flat/supine. Site prepped with betadine and sutures removed. Line removed with patient baring down. Pressure held 15 minutes. Site hemostatic and dry/sterile dressing applied. Pt observed 30 minutes and is stable Images from the original note were not included. Med Team Progress Note Salazar Coyle : 1950(70 y.o.) Date: April 12, 2021 Med Team: Alvaro Attending: Dr. Plascencia Chief Complaint: AMS Subjective: Ms Coyle is a 70 YO F w/ a PMHx of a-fib, TIIDM, lymphedema, & morbid obesity who was admitted on 03/09/21 for a right foot wound and was found to have osteomyelitis. While hospitalized became encephalopathic and hypotensive and subsequently developed acute hypoxic RF requiring intubation and pressor support. Underwent I&D of the R foot on 03/15/21 which grew providencia stuartii, pseudomonas, and MRSA which was subsequently treated with IV abx. During her stay developed WHITLEY requiring HD. Nephrology following and evaluating need for [facility] HD, otherwise can be cleared for [facility]. . 04/12/2021 - No acute events overnight, resting comfortably in bed - Plan to remove tunneled dialysis catheter today before discharge to [facility] - Denies any chest pain, SOB, weakness, fatigue, fever, or shills. States that she is at her baseline and is ready to leave the hospital. Agree with above Review of Systems Constitutional: Negative for chills, diaphoresis, fatigue and fever. HENT: Negative for congestion, postnasal drip, rhinorrhea and sinus pain. Respiratory: Negative for cough, chest tightness, shortness of breath and wheezing. Cardiovascular: Negative for chest pain, palpitations and leg swelling. Gastrointestinal: Negative for abdominal distention, abdominal pain, constipation, diarrhea, nausea and vomiting. Genitourinary: Negative for flank pain and hematuria. Musculoskeletal: Negative for arthralgias and back pain. Skin: Negative for color change. Neurological: Negative for dizziness, weakness and headaches. Psychiatric/Behavioral: Negative for agitation and behavioral problems. Scheduled Meds: insulin glargine 24 Units SubCUTAneous Nightly insulin lispro 8 Units SubCUTAneous TID WC apixaban 5 mg Oral BID sennosides-docusate sodium 2 tablet Oral Daily collagenase Topical Q MWF Baclofen 5 mg Oral BID melatonin 3 mg Oral Nightly acetaminophen 975 mg Oral TID aspirin 81 mg Oral Daily atorvastatin 20 mg Oral Daily calcium-cholecalciferol 1 tablet Oral Daily donepezil 5 mg Oral Nightly pantoprazole 40 mg Oral QAM AC gabapentin 100 mg Oral BID insulin lispro 0-6 Units SubCUTAneous TID WC mineral oil-hydrophilic petrolatum Topical BID sodium chloride flush 10 mL IntraCATHeter Q12H miconazole Topical BID stomahesive in petrolatum Topical BID sodium chloride flush 5-40 mL IntraVENous 2 times per day Continuous Infusions: dextrose sodium chloride dextrose PRN meds used in last 24hrs: N/A Objective: BP (!) 163/69 Pulse 72 Temp 97 F (36.1 C) (Temporal) Resp 22 Ht 5' 2" (1.575 m) Wt (!) 389 lb 4.8 oz (176.6 kg) SpO2 97% BMI 71.20 kg/m Physical Exam Constitutional: General: She is not in acute distress. Appearance: Normal appearance. She is obese. She is not diaphoretic. HENT: Head: Normocephalic and atraumatic. Right Ear: External ear normal. Left Ear: External ear normal. Nose: Nose normal. Mouth/Throat: Mouth: Mucous membranes are moist. Pharynx: Oropharynx is clear. Eyes: General: No scleral icterus. Conjunctiva/sclera: Conjunctivae normal. Pupils: Pupils are equal, round, and reactive to light. Cardiovascular: Rate and Rhythm: Normal rate and regular rhythm. Heart sounds: No murmur heard. No friction rub. No gallop. Pulmonary: Effort: Pulmonary effort is normal. No respiratory distress. Breath sounds: Normal breath sounds. No wheezing or rales. Chest: Chest wall: No tenderness. Abdominal: General: Bowel sounds are normal. There is no distension. Palpations: Abdomen is soft. There is no mass. Tenderness: There is no abdominal tenderness. There is no guarding. Musculoskeletal: General: Swelling, tenderness and deformity present. Normal range of motion. Cervical back: Normal range of motion and neck supple. No rigidity. Right lower leg: Edema present. Left lower leg: Edema present. Comments: Leg wounds bandaged Lymphadenopathy: Cervical: No cervical adenopathy. Skin: General: Skin is warm and dry. Findings: Bruising and lesion present. No erythema or rash. Neurological: Mental Status: She is alert and oriented to person, place, and time. Sensory: No sensory deficit. Motor: Weakness present. Coordination: Coordination normal. Psychiatric: Mood and Affect: Mood normal. Behavior: Behavior normal. [facility] within last 24 hours Lab Results Component Value Date/Time WBC 4.3 04/12/2021 05:26 AM Hemoglobin 8.5 (L) 04/12/2021 05:26 AM Hematocrit 27.2 (L) 04/12/2021 05:26 AM Platelets 209 04/12/2021 05:26 AM MCV 87.7 04/12/2021 05:26 AM Lab Results Component Value Date/Time Sodium 141 04/12/2021 05:26 AM Potassium 3.8 04/12/2021 05:26 AM Chloride 106 04/12/2021 05:26 AM CO2 29 04/12/2021 05:26 AM BUN 31 (H) 04/12/2021 05:26 AM CREATININE 1.46 (H) 04/12/2021 05:26 AM Glucose 204 (H) 04/12/2021 05:26 AM Calcium 8.6 04/12/2021 05:26 AM Phosphorus 4.7 (H) 04/12/2021 05:26 AM Assessment and Plan: WHITLEY/ATN on HD - Improving Kidney function - Last HD on 04/06/21 - Nephrology following ok to remove TDC - Cr 1.46 today, improving Agree with above Asymptomatic bacteruria - UA positive for leukocytes & nitrites - Urine culture pending - No abx Agree with above Acute on Chronic R foot Wound with Positive Providencia Stuartii, Pseudomonas, and MRSA Chronic Lymphedema - I&D on 03/15/21 w/ clean margins - Completed abx therapy - Wound care managing dressing changes. - Oxycodone 5 mg PRN for pain and wound changes Agree with above Type II DM with Hyperglycemia - Glucose has been in 200's - Lantus 24 U nightly - Humalog 8 U TID - Continue low dose sliding scale Agree with above Paroxysmal Afib - CHADSVASC = 4 - Eliquis 5mg BID HTN - Stable 163/69 - PRN hydralazine for SBP > 160 hasn't been given - No previous home medications - May need an agent prior to discharge HLD - Atorvastatin 20mg daily Hx of Dementia and Delirium - Donepezil 5mg nightly - Delirium precautions Morbid Obesity - Will need outpatient evaluation for obesity Lines and Jose - Has PICC line in R cephalic vein - Has tunneled R IJ HD line - Jose catheter replaced 04/10/21 - Plan to pull PICC line and HD catheter prior to discharge Dispo: Plan for discharge to [facility] today, given stable and improving medical and renal status. - Goals of Care: FULL CODE - DVT Prophylaxis: Eliquis - GI Prophylaxis: Protonix daily - Diet: Dysphagia - soft and bite sized 5 carb control I have personally examined the patient and reviewed the case with the resident and or med student. I have personally taken a history, examined the patient, and performed the associated medical decision making activities. I have reviewed & verified the attested documentation. Unless otherwise noted below, this documentation reflects the history, physical exam, and medical decision making that I performed myself. I agree with the current plan of care including the workup, evaluation, management, and diagnosis. Care plan has been discussed. The above documentation has been reviewed and edited as needed to reflect the findings of my evaluation. Attending comments are in bold. I personally spent over 51% total time of 25 minutes coordinating care. I personally reviewed the chart, data, labs, radiology reports, and discussed the case with the nurse and resident team. [facility] Progress Note [facility] [place] Patient: Salazar Coyle Unit/Bed: 1917/626874 Date of : 1950 Acct: [id number] Admitting Diagnosis: Right foot infection [L08.9] Subacute osteomyelitis of right foot (HCC) [M86.271] Admit Date: 03/08/2021 Hospital Day: 34 Subjective: Salazar Coyle 70 y.o. year old female who we are seeing in consultation for WHITLEY. All labs / data/ chart and interval events are noted HD last on 04/06 BP has been stable Edema is noted AMS waxing and waining Making more UO??, previous 24 hr urine albino reviewed, sample is undercollected, unable to interpret Lytes are as expected No other new issues No change in the PFSH at this time Complete ROS otherwise negative Objective: BP (!) 157/72 Pulse 71 Temp 96.9 F (36.1 C) (Temporal) Resp 18 Ht 5' 2" (1.575 m) Wt (!) 389 lb 4.8 oz (176.6 kg) SpO2 94% BMI 71.20 kg/m Intake/Output Summary (Last 24 hours) at 04/11/2021 1538 Last data filed at 04/11/2021 0618 Gross per 24 hour Intake 240 ml Output 450 ml Net -210 ml General Appearance: NAD, awake, morbidly obese HEENT: NC/AT, kayley JVD d/t body habitus Lungs: Distant , CTA bilaterally, no wheeze, rales or rhonchi, good air entry, good respiratory effort Heart: Heart sounds are regular, No murmur, gallop or rub appreciated Abdomen: +BS, soft, nttp, nd, +abdominal wall edema Extremities: +2 upper and lower bilateral ext edema. Difficult to determine if just obesity vs third spacing. Neurologic: no asterixis, moving all ext Affect: confused Access: RIJ TDC, normal exam Diet: ADULT ORAL NUTRITION SUPPLEMENT; Dinner; Diabetic Oral Supplement ADULT DIET; Dysphagia - Soft and Bite Sized; 5 carb choices (75 gm/meal) ADULT ORAL NUTRITION SUPPLEMENT; Breakfast, Lunch; Wound Healing Oral Supplement Medications: insulin glargine 24 Units SubCUTAneous Nightly insulin lispro 8 Units SubCUTAneous TID WC apixaban 5 mg Oral BID sennosides-docusate sodium 2 tablet Oral Daily collagenase Topical Q MWF Baclofen 5 mg Oral BID melatonin 3 mg Oral Nightly acetaminophen 975 mg Oral TID aspirin 81 mg Oral Daily atorvastatin 20 mg Oral Daily calcium-cholecalciferol 1 tablet Oral Daily donepezil 5 mg Oral Nightly pantoprazole 40 mg Oral QAM AC gabapentin 100 mg Oral BID insulin lispro 0-6 Units SubCUTAneous TID WC mineral oil-hydrophilic petrolatum Topical BID sodium chloride flush 10 mL IntraCATHeter Q12H miconazole Topical BID stomahesive in petrolatum Topical BID sodium chloride flush 5-40 mL IntraVENous 2 times per day Continuous Infusions: dextrose sodium chloride dextrose PRN Meds:glucose, dextrose, glucagon (rDNA), dextrose, hydrALAZINE, oxyCODONE, heparin (porcine), heparin (porcine), polyethylene glycol, ipratropium-albuterol, sodium chloride flush, heparin flush, stomahesive in petrolatum, sodium chloride flush, sodium chloride, ondansetron OR ondansetron, glucose, dextrose, glucagon (rDNA), dextrose DVT Prophylaxis: Data: CBC: Recent Labs 04/09/21 01104/10/21 0209 04/11/218 WBC 4.8 4.5 4.6 RBC 3.17* 3.08* 2.99* HGB 8.8* 8.4* 8.3* HCT 27.8* 26.8* 26.2* MCV 87.7 87.1 87.5 RDW 19.3* 18.7* 19.0* PLT 210 211 200 BMP: Recent Labs 04/09/21 0118 04/09/21 0118 04/10/21 0209 04/10/21 1224 04/11/218 NA 139 -- 138 -- 140 K 4.0 -- 3.6 -- 3.5 CL 101 -- 103 -- 104 CO2 29 -- 28 -- 29 PHOS 4.0 -- 4.2 -- 4.3 BUN 29* -- 30* -- 33* CREATININE 1.65* < > 1.59* 1.62* 1.61* < > = values in this interval not displayed. BNP: No results for input(s): BNP in the last 72 hours. PT/INR: No results for input(s): PROTIME, INR in the last 72 hours. APTT: No results for input(s): APTT in the last 72 hours. CARDIAC ENZYMES: No results for input(s): CKMB, CKMBINDEX, TROPONINT in the last 72 hours. Invalid input(s): CKTOTAL;3 FASTING LIPID PANEL:No results found for: CHOL, HDL, TRIG LIVER PROFILE: No results for input(s): AST, ALT, ALB, BILIDIR, BILITOT, ALKPHOS in the last 72 hours. ABGs: Lab Results Component Value Date PH 7.29 03/23/2021 Assessment/Plan: Salazar Coyle 70 y.o. year old female who we are seeing in consultation for WHITLEY. # WHITLEY/ATN from Normotensive ATN (hypovolemia) on MH TEACHER since 03/17/2021 - Scr remains stable, good uop, BP stable - originally was iHD per [facility] schedule - Last HD 04/06 - 24 hr urine albino- undercoll sample, but Current results show CrCl 24% which argues that complete crcl could be even higher. Will remove TDC. - pending another 24 hr albino--> in progress - will need jose catheter maintained for now Will HOLD off further iHD for now and trend crea and UO for recovery - Continue to hold acei and diuretics. - now w/ TDC #HTN - BP stable # Metabolic Encephalopathy suspected from gabapentin/baclofen - Pt with dementia at baseline - Noted on baclofen and gabapentin # Acute on Chronic Resp Acidosis from PHOEBE - Per primary - extubated 03/20 # Acute on Chronic Bilateral lower ext Cellulitis - Off abx - Noted multi gaby on wound culture # Anemia - Hgb stable #DM2 -defer to Primary Noted placement issues ongoing Please do no hesitate to call with any questions Pager [phone] Comprehensive Nutrition Assessment Type and Reason for Visit: Reassess Nutrition Recommendations/Plan: 1. Continue with current diet: dysphagia soft and bite sized, CHO Control with orange Pete BID ( 1 pkt provides 90 kcals, 14 gm amino acids, 2.5 gm protein) and chocolate Ensure HP at dinner (8 oz provides 160 kcals, 16 gm protein). Would continue to least restrictive with diet to promote po intake. 2. Consider re-consult [employer]. Patient dislikes dysphagia soft and bite sized diet along with her menu choices. She reports that she does not like mac and cheese, tomato soup, pot roast, and fish on menu which is majority of her choices on dysphagia soft and bite sized. 3. Request daily weights. 4. Please continue to record % of meals and oral nutrition supplements consumed daily on nursing flow sheets. 5. Monitor weight, labs, I/O, skin assessment, and overall nutritional status. RD will follow up. Nutrition Assessment: PMHx of a-fib, TIIDM, lymphedema, & morbid obesity who was admitted on 03/09/21 for a right foot wound and was found to have osteomyelitis. While hospitalized became encephalopathic and hypotensive and subsequently developed acute hypoxic respiratory failure requiring intubation and pressor support. Underwent I&D of the R foot on 03/15/21 which grew providencia stuartii, pseudomonas, and MRSA which was subsequently treated with IV abx. Wound care is following for dressing changes. During her stay developed WHITLEY requiring HD. Serum creatinine is improving. Awaiting another 24 hour urine collection. HD on hold for now and monitoring for renal recovery. Patient and staff reports that patient is consuming her oral nutrition supplements. Patient prefers orange Pete. There is cup of Pete and Ensure HP bottle in patient's room. Patient reports that she is not too hungry. She is agreeable to try egg salad for lunch. Patient with multiple food dislikes- pot roast, macaroni and cheese, tomato soup, and fish. She feels that dysphagia soft and bite sized recommendation by [employer]ING OPERATOR is wrong. Malnutrition Assessment: Malnutrition Status: At risk for malnutrition (Comment) Context: Acute Illness Findings of the 6 clinical characteristics of malnutrition: Energy Intake: 7 - 50% or less of estimated energy requirements for 5 or more days Weight Loss: (Patient does not know her UBW. Weights fluctuating this admisison which is likely due to fluid and accuracy of bed scale weights. Recent weights since last follow up: 389-392 lbs. + Lymphedema and WHITLEY. I/O is negative 13242 (since 03/28/21)) Body Fat Loss: No significant body fat loss Muscle Mass Loss: No significant muscle mass loss Fluid Accumulation: 7 - Moderate to Severe (patient with chronic lymphedema) Extremities Dry Cleaning Manager Strength: Not Performed Estimated Daily Nutrient Needs: Energy (kcal): 22-25 kcals/kg IBW = 8753-0752 kcals/day; Weight Used for Energy Requirements: [place] Protein (g): 1.2-1.4g = 60-70g protein/day; Weight Used for Protein Requirements: [place] Fluid (ml/day): per MD; Method Used for Fluid Requirements: Other (Comment) Nutrition Related Findings: Alex = 13, loss of appetite 04/10, BM on 04/09, non pitting BUE edema, +BLE edema, I/O: -[id number] (since 03/28). Meds: Lipitor, Lioresal, Calcium Cholecalciferol, Aricept, Neurontin, Insulin, Melatonin, Protonix, Senokot. BMP: Recent Labs 04/09/21 0118 04/09/21 0118 04/10/21 0209 04/10/21 1224 04/11/21 0218 NA 139 -- 138 -- 140 K 4.0 -- 3.6 -- 3.5 CL 101 -- 103 -- 104 CO2 29 -- 28 -- 29 BUN 29* -- 30* -- 33* CREATININE 1.65* < > 1.59* 1.62* 1.61* GLUCOSE 215* -- 210* -- 207* CALCIUM 9.2 -- 8.7 -- 8.7 PHOS 4.0 -- 4.2 -- 4.3 < > = values in this interval not displayed. HEPATIC: No results for input(s): AST, ALT, ALB, BILITOT, ALKPHOS in the last 72 hours. Wounds: Pressure Injury,Stage II,Wound Vac,Deep Tissue Injury Current Nutrition Therapies: ADULT ORAL NUTRITION SUPPLEMENT; Dinner; Diabetic Oral Supplement ADULT ORAL NUTRITION SUPPLEMENT; Breakfast, Lunch; Wound Healing Oral Supplement ADULT DIET; Dysphagia - Soft and Bite Sized; 5 carb choices (75 gm/meal) Anthropometric Measures: Height: 5' 2" (157.5 cm) Current Body Weight: 389 lb (176.4 kg) (bed scale weight) Admission Body Weight: 400 lb (181.4 kg) (initially stated) Usual Body Weight: (No recent weight hx in chart to review, noted pt started on HD this admit) [place] Body Weight: 110 lbs; Nutrition Interventions: Food and/or Nutrient Delivery: Continue Current Diet,Continue Oral Nutrition Supplement Nutrition Education/Counseling: Education not appropriate Coordination of Nutrition Care: No recommendation at this time Goals: Patient consume > 50% of meals and oral nutrition supplements. Nutrition Monitoring and Evaluation: Behavioral-Environmental Outcomes: None Identified Food/Nutrient Intake Outcomes: Food and Nutrient Intake,Supplement Intake,Vitamin/Mineral Intake Physical Signs/Symptoms Outcomes: Biochemical Data,Chewing or Swallowing,GI Status,Fluid Status or Edema,Meal Time Behavior,Nutrition Focused Physical Findings,Skin,Weight Discharge Planning: Too soon to determine Contact: Pager [phone] Images from the original note were not included. Above photo: R foot full thickness wound with bone exposure after wound VAC removal.Focused assessment limited to R foot. Pt was premedicated with PO pain med before start of dressing. Explained to pt due to fear of her movement of R leg and foot Wound Care nurses would try and minimize this as much as possible. Pt's dressings also removed from R plantar and R heel wounds. Pt has 1+ DP palpable pulse with 1+ edema noted. Pt's L DP was 1+ palpable with 2+ edema,L heel intact. Heelmedix boot was replaced. Pt is also agreeable to Heelmedix boot to R foot. Encouraged her that her wounds appear improved from using this. Wound on R foot measures 8.5 cm x 5.5 cm x 0.8 cm. Pt has bone felt in wound bed, 30% slough in wound bed is thinning considerably, black is sloughing off and thinning. No pus, odor or erythema noted. Drainage is small amount of serosanguinous. Cleansed with NS, patted dry, applied No sting to helena wound skin. Also applied half of adapt ring to base of toes to maintain seal. Tips of toes with scattered black eschars. No drainage noted from them. Applied 1 white foam over bone followed by 1 black foam.Trac pad bridged to dorsal foot with skin protection. R heel wound wound Stage 2 can not fully visualize due to pt's intolerance of movement, what could be measured is 1.5 cm x 1cm with pink tissue. Helena wound with peeling skin, no pus, odor or erythema noted. No drainage noted. Cleansed with NS and foam dressing applied. Unable to see in photo pt's Deep Tissue Injury to R planter heel is 1 cm x 1 cm, helena wound is clear. After cleansing with NS applied foam dressing as above. Reapplied boot to R foot. Pt made comfortable after dressing change. She does not complain of pain during wound care but continues to be intolerant of any leg or foot movement Did not assess buttocks ad coccyx as pt's tray is there and ready to eat. Will continue to follow for wound VAC changes. Images from the original note were not included. Med Team Progress Note Salazar Coyle : 1950(70 y.o.) Date: April 11, 2021 Med Team: A Attending: Dr. Plascencia Chief Complaint: AMS Subjective: Ms Coyle is a 70 YO F w/ a PMHx of a-fib, TIIDM, lymphedema, & morbid obesity who was admitted on 03/09/21 for a right foot wound and was found to have osteomyelitis. While hospitalized became encephalopathic and hypotensive and subsequently developed acute hypoxic RF requiring intubation and pressor support. Underwent I&D of the R foot on 03/15/21 which grew providencia stuartii, pseudomonas, and MRSA which was subsequently treated with IV abx. During her stay developed WHITLEY requiring HD. 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 Overnight, patient had jose replaced. Was difficult to place, called urology. Placed jose, put on keflex, and urine cultures ordered. Had 900cc's output. Nephro redoing urine collection will end today ~noon-1pm. - Currently, patient is resting in bed. She denies any acute complaints (no chest pain, no SOB). She is very eager to go to [facility] today. Agree with above Review of Systems Constitutional: Negative for chills, diaphoresis, fatigue and fever. HENT: Negative for congestion, postnasal drip, rhinorrhea and sinus pain. Respiratory: Negative for cough, chest tightness, shortness of breath and wheezing. Cardiovascular: Negative for chest pain, palpitations and leg swelling. Gastrointestinal: Negative for abdominal distention, abdominal pain, constipation, diarrhea, nausea and vomiting. Genitourinary: Negative for flank pain and hematuria. Musculoskeletal: Negative for arthralgias and back pain. Neurological: Positive for weakness. Negative for dizziness and headaches. Psychiatric/Behavioral: Negative for agitation and behavioral problems. Scheduled Meds: insulin lispro 7 Units SubCUTAneous TID WC insulin glargine 20 Units SubCUTAneous Nightly cephALEXin 250 mg Oral 4 times per day apixaban 5 mg Oral BID sennosides-docusate sodium 2 tablet Oral Daily collagenase Topical Q MWF Baclofen 5 mg Oral BID melatonin 3 mg Oral Nightly acetaminophen 975 mg Oral TID aspirin 81 mg Oral Daily atorvastatin 20 mg Oral Daily calcium-cholecalciferol 1 tablet Oral Daily donepezil 5 mg Oral Nightly pantoprazole 40 mg Oral QAM AC gabapentin 100 mg Oral BID insulin lispro 0-6 Units SubCUTAneous TID WC mineral oil-hydrophilic petrolatum Topical BID sodium chloride flush 10 mL IntraCATHeter Q12H miconazole Topical BID stomahesive in petrolatum Topical BID sodium chloride flush 5-40 mL IntraVENous 2 times per day Continuous Infusions: dextrose sodium chloride dextrose PRN meds used in last 24hrs: Objective: BP (!) 125/54 Pulse 74 Temp 97.3 F (36.3 C) (Temporal) Resp 20 Ht 5' 2" (1.575 m) Wt (!) 389 lb 4.8 oz (176.6 kg) SpO2 92% BMI 71.20 kg/m Physical Exam Constitutional: General: She is not in acute distress. Appearance: Normal appearance. She is obese. She is not diaphoretic. HENT: Head: Normocephalic and atraumatic. Right Ear: External ear normal. Left Ear: External ear normal. Nose: Nose normal. Mouth/Throat: Mouth: Mucous membranes are moist. Pharynx: Oropharynx is clear. Eyes: General: No scleral icterus. Conjunctiva/sclera: Conjunctivae normal. Pupils: Pupils are equal, round, and reactive to light. Cardiovascular: Rate and Rhythm: Normal rate and regular rhythm. Heart sounds: No murmur heard. No friction rub. No gallop. Pulmonary: Effort: Pulmonary effort is normal. No respiratory distress. Breath sounds: Normal breath sounds. No wheezing or rales. Chest: Chest wall: No tenderness. Abdominal: General: Bowel sounds are normal. There is no distension. Palpations: Abdomen is soft. There is no mass. Tenderness: There is no abdominal tenderness. There is no guarding. Musculoskeletal: General: Swelling, tenderness and deformity present. Normal range of motion. Cervical back: Normal range of motion and neck supple. No rigidity. Right lower leg: Edema present. Left lower leg: Edema present. Comments: Leg wounds bandaged Lymphadenopathy: Cervical: No cervical adenopathy. Skin: General: Skin is warm and dry. Findings: Bruising and lesion present. No erythema or rash. Neurological: Mental Status: She is alert and oriented to person, place, and time. Sensory: No sensory deficit. Motor: Weakness present. Coordination: Coordination normal. Psychiatric: Mood and Affect: Mood normal. Behavior: Behavior normal. [facility] within last 24 hours Lab Results Component Value Date/Time WBC 4.6 04/11/2021 02:18 AM Hemoglobin 8.3 (L) 04/11/2021 02:18 AM Hematocrit 26.2 (L) 04/11/2021 02:18 AM Platelets 200 04/11/2021 02:18 AM MCV 87.5 04/11/2021 02:18 AM Lab Results Component Value Date/Time Sodium 140 04/11/2021 02:18 AM Potassium 3.5 04/11/2021 02:18 AM Chloride 104 04/11/2021 02:18 AM CO2 29 04/11/2021 02:18 AM BUN 33 (H) 04/11/2021 02:18 AM CREATININE 1.61 (H) 04/11/2021 02:18 AM CREATININE 1.62 (H) 04/10/2021 12:24 PM Glucose 207 (H) 04/11/2021 02:18 AM Calcium 8.7 04/11/2021 02:18 AM Phosphorus 4.3 04/11/2021 02:18 AM Assessment and Plan: WHITLEY/ATN on HD - Improving Kidney function - Last HD on 1/5/22 - Nephrology following ordered 24 hour urine creatinine - Scr 1.61 today trending around that number Agree with above Asymptomatic bacteruria - UA positive for protein (70), blood, nitrite, leukocytes (500), 51-100 RBCs - Urine culture pending - On keflex Agree with above, stop Keflex Acute on Chronic R foot Wound with Positive Providencia Stuartii, Pseudomonas, and MRSA - Treatment completed Chronic Lymphedema - I&D on 03/15/21 w/ clean margins - Completed abx therapy - Wound care managing dressing changes. - Oxycodone 5 mg PRN for pain and wound changes Agree with above Type II DM with Hyperglycemia - Glucose has been in 200's - Lantus 20 U nightly - Humalog 7 U TID - Continue low dose sliding scale Agree with above Paroxysmal Afib - CHADSVASC = 4 - Eliquis 5mg BID HTN - Stable 157/72 - PRN hydralazine for SBP > 160 hasn't been given - No previous home medications - May need an agent prior to discharge HLD - Atorvastatin 20mg daily Hx of Dementia and Delirium - Donepezil 5mg nightly - Delirium precautions Morbid Obesity - Will need outpatient evaluation for obesity Lines and Jose - Has PICC line in R cephalic vein - Has tunneled R IJ HD line - Jose catheter replaced 04/10/21 - Plan to pull PICC line prior to discharge - Will discuss with nephrology on whether we can remove HD catheter. Agree with above Dispo: Likely to be discharged back to [facility] given improvement with kidney function. Will discuss with nephrology - Goals of Care: FULL CODE - DVT Prophylaxis: Eliquis - GI Prophylaxis: Protonix daily - Diet: Dysphagia - soft and bite sized 5 carb control I have personally examined the patient and reviewed the case with the resident and or med student. I have personally taken a history, examined the patient, and performed the associated medical decision making activities. I have reviewed & verified the attested documentation. Unless otherwise noted below, this documentation reflects the history, physical exam, and medical decision making that I performed myself. I agree with the current plan of care including the workup, evaluation, management, and diagnosis. Care plan has been discussed. The above documentation has been reviewed and edited as needed to reflect the findings of my evaluation. Attending comments are in bold. I personally spent over 51% total time of 35 minutes coordinating care. I personally reviewed the chart, data, labs, radiology reports, and discussed the case with the nurse and resident team. [facility] Progress Note Subjective/ Salazar Amandaford 70 y.o. year old female who we are seeing in consultation for WHITLEY. All labs / data/ chart and interval events are noted HD last on 04/06 BP has been stable Edema is noted AMS waxing and waining Making more UO??, previous 24 hr urine albino reviewed, sample is undercollected, unable to interpret Lytes are as expected No other new issues No change in the PFSH at this time Complete ROS otherwise negative Objective/ Vitals: 04/09/21 0650 04/09/21 0756 04/09/21 1946 04/10/21 0816 BP: (!) 171/65 (!) 158/60 (!) 155/71 Pulse: 70 81 80 Resp: 16 22 18 Temp: 97.6 F (36.4 C) 97.5 F (36.4 C) 97.3 F (36.3 C) TempSrc: Temporal Temporal Temporal SpO2: 97% 96% 98% Weight: (!) 389 lb 4.8 oz (176.6 kg) Height: 24HR INTAKE/OUTPUT: Intake/Output Summary (Last 24 hours) at 04/10/2021 1137 Last data filed at 04/10/2021 0606 Gross per 24 hour Intake Output 950 ml Net -950 ml General Appearance: NAD, awake, morbidly obese HEENT: NC/AT, kayley JVD d/t body habitus Lungs: Distant , CTA bilaterally, no wheeze, rales or rhonchi, good air entry, good respiratory effort Heart: Heart sounds are regular, No murmur, gallop or rub appreciated Abdomen: +BS, soft, nttp, nd, +abdominal wall edema Extremities: +2 upper and lower bilateral ext edema. Difficult to determine if just obesity vs third spacing. Neurologic: no asterixis, moving all ext Affect: confused Access: RIJ TDC, normal exam Current Facility-Administered Medications Medication Dose Route Frequency Provider Last Rate Last Admin insulin lispro (HUMALOG) injection vial 7 Units 7 Units SubCUTAneous TID WC Ladonna Shaub, DO insulin glargine (LANTUS) injection vial 20 Units 20 Units SubCUTAneous Nightly Ladonna Shaub, DO glucose (GLUTOSE) 40 % oral gel 15 g 15 g Oral PRN Ladonna Shaub, DO dextrose 50 % IV solution 12.5 g IntraVENous PRN Ladonna Shaub, DO glucagon (rDNA) injection 1 mg 1 mg IntraMUSCular PRN Ladonna Shaub, DO dextrose 5 % solution 100 mL/hr IntraVENous PRN Ladonna Shaub, DO hydrALAZINE (APRESOLINE) injection 10 mg 10 mg IntraVENous Q6H PRN Ladonna Shaub, DO apixaban (ELIQUIS) tablet 5 mg 5 mg Oral BID Aubrie Whiting MD 5 mg at 04/10/21 0915 sennosides-docusate sodium (SENOKOT-S) 8.6-50 MG tablet 2 tablet 2 tablet Oral Daily Zhao Willis MD 2 tablet at 04/08/21 0810 collagenase ointment Topical Q MWF Phillip Victor MD Given by Other at 04/08/21 0900 oxyCODONE (ROXICODONE) immediate release tablet 5 mg 5 mg Oral Q6H PRN Zhao Willis MD 5 mg at 04/10/21 0339 heparin (porcine) injection 2,100 Units 2,100 Units IntraCATHeter PRN Reynold Garner MD 2,100 Units at 04/04/21 1200 heparin (porcine) injection 2,200 Units 2,200 Units IntraCATHeter PRN Reynold Garner MD 2,200 Units at 04/04/21 1200 baclofen (LIORESAL) tablet 5 mg 5 mg Oral BID Juan Adams, DO 5 mg at 04/10/21 0914 melatonin tablet 3 mg 3 mg Oral Nightly Keon Young MD 3 mg at 04/09/212008 acetaminophen (TYLENOL) tablet 975 mg 975 mg Oral TID Oriana Cho, DO 975 mg at 04/10/21 0914 aspirin chewable tablet 81 mg 81 mg Oral Daily Oriana Cho, DO 81 mg at 04/10/21 0914 atorvastatin (LIPITOR) tablet 20 mg 20 mg Oral Daily Oriana Cho, DO 20 mg at 04/10/21 0914 calcium-cholecalciferol 500-200 MG-UNIT per tablet 1 tablet 1 tablet Oral Daily Oriana Cho, DO 1 tablet at 04/10/21 09 donepezil (ARICEPT) tablet 5 mg 5 mg Oral Nightly Oriana Cho, DO 5 mg at 04/09/212056 pantoprazole (PROTONIX) tablet 40 mg 40 mg Oral QAM AC Oriana Cho, DO 40 mg at 04/10/21 06 gabapentin (NEURONTIN) capsule 100 mg 100 mg Oral BID Oriana Cho, DO 100 mg at 04/10/21913 insulin lispro (HUMALOG) injection vial 0-6 Units 0-6 Units SubCUTAneous TID WC Oriana Cho, DO 2 Units at 04/10/21916 mineral oil-hydrophilic petrolatum (AQUAPHOR) ointment Topical BID Oriana Cho, DO Given at 04/09/212007 polyethylene glycol (GLYCOLAX) packet 17 g 17 g Per G Tube Daily PRN Oriana Cho, DO ipratropium-albuterol (DUONEB) nebulizer solution 1 ampule 1 ampule Inhalation Q4H PRN Leonel Sood MD sodium chloride flush 0.9 % injection 10 mL 10 mL IntraCATHeter Q12H Loenel Sood MD 10 mL at 04/10/21 0447 sodium chloride flush 0.9 % injection 10 mL 10 mL IntraCATHeter PRN Leonel Sood MD heparin flush 100 UNIT/ML injection 250 Units 250 Units IntraCATHeter PRN Leonel Sood MD 250 Units at 04/01/21 1736 miconazole (MICOTIN) 2 % powder Topical BID Leonel Sood MD Given at 04/10/21 0916 stomahesive in petrolatum (ET MIX) Topical PRN Leonel Sood MD Given by Other at 04/08/21 0900 stomahesive in petrolatum (ET MIX) Topical BID Leonel Sood MD Given at 04/10/21 0915 sodium chloride flush 0.9 % injection 5-40 mL 5-40 mL IntraVENous 2 times per day Leonel Sood MD 10 mL at 04/10/21 0913 sodium chloride flush 0.9 % injection 5-40 mL 5-40 mL IntraVENous PRN Leonel Sood MD 0.9 % sodium chloride infusion 25 mL IntraVENous PRN Leonel Sood MD ondansetron (ZOFRAN-ODT) disintegrating tablet 4 mg 4 mg Oral Q8H PRN Leonel Sood MD Or ondansetron (ZOFRAN) injection 4 mg 4 mg IntraVENous Q6H PRN Leonel Sood MD glucose (GLUTOSE) 40 % oral gel 15 g 15 g Oral PRN Leonel Sood MD dextrose 50 % IV solution 12.5 g IntraVENous PRN Leonel Sood MD glucagon (rDNA) injection 1 mg 1 mg IntraMUSCular PRN Leonel Sood MD dextrose 5 % solution 100 mL/hr IntraVENous PRN Leonel Sood MD dextrose sodium chloride dextrose Data/ Recent Labs 04/08/21 0140 04/09/21 0118 04/10/21 0209 WBC 4.2 4.8 4.5 HGB 8.1* 8.8* 8.4* HCT 25.0* 27.8* 26.8* MCV 87.5 87.7 87.1 PLT 187 210 211 Recent Labs 04/08/21 0140 04/08/21 0140 04/08/21 1934 04/09/21 0118 04/10/21 0209 NA 137 -- -- 139 138 K 3.6 -- -- 4.0 3.6 CL 103 -- -- 101 103 CO2 30 -- -- 29 28 GLUCOSE 181* -- -- 215* 210* PHOS 3.5 -- -- 4.0 4.2 BUN 18 -- -- 29* 30* CREATININE 1.62* < > 1.60* 1.65* 1.59* < > = values in this interval not displayed. Assessment/Plan: Salazar Coyle 70 y.o. year old female who we are seeing in consultation for WHITLEY. # WHITLEY/ATN from Normotensive ATN (hypovolemia) on MH TEACHER since 03/17/2021 - Scr improving, trend for now, uop picking up??, monitor, BP stable - originally was iHD per [facility] schedule - Last HD 04/06 - 24 hr urine albino- undercoll sample, cannot interpret - pendinganother 24 hr albino--> in progress - will need jose catheter maintained for now Will HOLD off further iHD for now and trend crea and UO for recovery - Continue to hold acei and diuretics. - now w/ TDC #HTN - BP stable # Metabolic Encephalopathy suspected from gabapentin/baclofen - Pt with dementia at baseline - Noted on baclofen and gabapentin # Acute on Chronic Resp Acidosis from PHOEBE - Per primary - extubated 03/20 # Acute on Chronic Bilateral lower ext Cellulitis - Off abx - Noted multi gaby on wound culture # Anemia - Hgb stable #DM2 -defer to Primary Noted placement issues ongoing [facility] Images from the original note were not included. Med Team Progress Note Salazar Coyle : 1950(70 y.o.) Date: April 10, 2021 Med Team: A Attending: Dr. Plascencia Chief Complaint: AMS Subjective: Ms Coyle is a 70 YO F w/ a PMHx of a-fib, TIIDM, lymphedema, & morbid obesity who was admitted on 03/09/21 for a right foot wound and was found to have osteomyelitis. While hospitalized became encephalopathic and hypotensive and subsequently developed acute hypoxic RF requiring intubation and pressor support. Underwent I&D of the R foot on 03/15/21 which grew providencia stuartii, pseudomonas, and MRSA which was subsequently treated with IV abx. During her stay developed WHITLEY requiring HD. 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 - No acute events overnight. - Currently, resting and bed, no complaints - Discussed labs and UO, is excited that her kidneys are working again - Wishes to go back to [facility] on 04/11/21; instructed her that we would try to get her back by tomorrow however we will need to discuss with nephrology - Discussed need for a change in her jose catheter, she was reluctant 2/2 to pain during changes. Will premedicate with pain pill and anti-anxiety agent. Agree with above Review of Systems Constitutional: Negative for chills, diaphoresis and fever. Respiratory: Negative for cough and shortness of breath. Cardiovascular: Positive for leg swelling. Negative for chest pain. Gastrointestinal: Negative for abdominal pain, constipation and nausea. Genitourinary: Negative for pelvic pain. Musculoskeletal: Negative for arthralgias, back pain and myalgias. Skin: Positive for wound. Neurological: Positive for weakness. Negative for headaches. Psychiatric/Behavioral: Negative for sleep disturbance. Scheduled Meds: insulin lispro 7 Units SubCUTAneous TID WC insulin glargine 20 Units SubCUTAneous Nightly LORazepam 0.5 mg Oral Once apixaban 5 mg Oral BID sennosides-docusate sodium 2 tablet Oral Daily collagenase Topical Q MWF Baclofen 5 mg Oral BID melatonin 3 mg Oral Nightly acetaminophen 975 mg Oral TID aspirin 81 mg Oral Daily atorvastatin 20 mg Oral Daily calcium-cholecalciferol 1 tablet Oral Daily donepezil 5 mg Oral Nightly pantoprazole 40 mg Oral QAM AC gabapentin 100 mg Oral BID insulin lispro 0-6 Units SubCUTAneous TID WC mineral oil-hydrophilic petrolatum Topical BID sodium chloride flush 10 mL IntraCATHeter Q12H miconazole Topical BID stomahesive in petrolatum Topical BID sodium chloride flush 5-40 mL IntraVENous 2 times per day Continuous Infusions: dextrose sodium chloride dextrose PRN meds used in last 24hrs: Oxycodone 5 mg x 1 Objective: BP (!) 155/71 Pulse 80 Temp 97.3 F (36.3 C) (Temporal) Resp 18 Ht 5' 2" (1.575 m) Wt (!) 389 lb 4.8 oz (176.6 kg) SpO2 98% BMI 71.20 kg/m Physical Exam Vitals reviewed. Constitutional: General: She is not in acute distress. Appearance: Normal appearance. She is obese. She is not diaphoretic. HENT: Head: Normocephalic and atraumatic. Mouth/Throat: Mouth: Mucous membranes are moist. Pharynx: Oropharynx is clear. Eyes: General: No scleral icterus. Extraocular Movements: Extraocular movements intact. Cardiovascular: Rate and Rhythm: Normal rate and regular rhythm. Heart sounds: No murmur heard. No gallop. Comments: Distant heart tones Pulmonary: Effort: Pulmonary effort is normal. No respiratory distress. Breath sounds: Normal breath sounds. No wheezing or rales. Abdominal: General: Bowel sounds are normal. There is no distension. Palpations: Abdomen is soft. Tenderness: There is no abdominal tenderness. Musculoskeletal: General: Swelling, tenderness, deformity and signs of injury present. Normal range of motion. Right lower leg: Edema present. Left lower leg: Edema present. Skin: General: Skin is warm and dry. Findings: Bruising and lesion (bilateral LE) present. Neurological: Mental Status: She is alert. Motor: Weakness present. Psychiatric: Mood and Affect: Mood normal. Behavior: Behavior normal. [facility] within last 24 hours Lab Results Component Value Date/Time WBC 4.5 04/10/2021 02:09 AM Hemoglobin 8.4 (L) 04/10/2021 02:09 AM Hematocrit 26.8 (L) 04/10/2021 02:09 AM Platelets 211 04/10/2021 02:09 AM MCV 87.1 04/10/2021 02:09 AM Lab Results Component Value Date/Time Sodium 138 04/10/2021 02:09 AM Potassium 3.6 04/10/2021 02:09 AM Chloride 103 04/10/2021 02:09 AM CO2 28 04/10/2021 02:09 AM BUN 30 (H) 04/10/2021 02:09 AM CREATININE 1.59 (H) 04/10/2021 02:09 AM Glucose 210 (H) 04/10/2021 02:09 AM Calcium 8.7 04/10/2021 02:09 AM Phosphorus 4.2 04/10/2021 02:09 AM Assessment and Plan: WHITLEY/ATN on HD - Improving Kidney function - Nephrology following - Last HD on 04/06/21 - UO 950 CC past 24 hours - Nephrology following ordered 24 hour urine creatitine - Scr 1.59 today ~ unchanged 1.65 yesterday Agree with above Acute on Chronic R foot Wound with Positive Providencia Stuartii, Pseudomonas, and MRSA - Treatment completed Chronic Lymphedema - I&D on 03/15/21 w/ clean margins - Completed abx therapy - Wound care managing dressing changes. - Oxycodone 5 mg PRN for pain and wound changes Agree with above Type II DM with Hyperglycemia - Glucose has been in 200's - Increased Lantus to 20 U nightly - Humalog increased to 7 U TID - Continue low dose sliding scale Agree with above Paroxysmal Afib - CHADSVASC = 4 - Eliquis 5mg BID Agree with above HTN - Stable - PRN hydralazine for SBP > 160 hasn't been given - No previous home medications - May need an agent prior to discharge HLD - Atorvastatin 20mg daily Hx of Dementia and Delirium - Donepezil 5mg nightly - Delirium precautions Morbid Obesity - Will need outpatient evaluation for obesity Lines and Jose - Has PICC line in R cephalic vein - Has tunneled R IJ HD line - Has had jose catheter in place since 03/10/21 - Discussed d/c of jose catheter yesterday however nephrology wishes to have it in to have accurate assessment of urine creatitine and urine o/p - Plan to remove and re-insert jose catheter this afternoon, ativan order placed given anxiety when moving - Plan to pull PICC line prior to discharge - Will discuss with nephrology on whether we can remove HD catheter. Agree with above Dispo: Likely to be discharged back to [facility] given improvement with kidney function. Will discuss with nephrology - Goals of Care: FULL CODE - DVT Prophylaxis: Eliquis - GI Prophylaxis: Protonix daily - Diet: Dysphagia - soft and bite sized 5 carb control I have personally examined the patient and reviewed the case with the resident and or med student. I have personally taken a history, examined the patient, and performed the associated medical decision making activities. I have reviewed & verified the attested documentation. Unless otherwise noted below, this documentation reflects the history, physical exam, and medical decision making that I performed myself. I agree with the current plan of care including the workup, evaluation, management, and diagnosis. Care plan has been discussed. The above documentation has been reviewed and edited as needed to reflect the findings of my evaluation. Attending comments are in bold. I personally spent over 51% total time of 25 minutes coordinating care. I personally reviewed the chart, data, labs, radiology reports, and discussed the case with the nurse and resident team. [facility] Progress Note Subjective/ Salazar Coyle 70 y.o. year old female who we are seeing in consultation for WHITLEY. All labs / data/ chart and interval events are noted HD last on 04/06 BP has been stable Edema is noted AMS waxing and waining Making more UO??, 24 hr urine albino reviewed, sample is undercollected, unable to interpret Lytes are as expected No other new issues No change in the PFSH at this time Complete ROS otherwise negative Objective/ Vitals: 04/08/21 0803 04/08/21 1950 04/09/21 0650 04/09/21 0756 BP: 135/71 (!) 152/66 (!) 171/65 Pulse: 73 77 70 Resp: 18 16 16 Temp: 98.6 F (37 C) 98.4 F (36.9 C) 97.6 F (36.4 C) TempSrc: Temporal Temporal Temporal SpO2: 96% 92% 97% Weight: (!) 389 lb 4.8 oz (176.6 kg) Height: 24HR INTAKE/OUTPUT: Intake/Output Summary (Last 24 hours) at 04/09/2021 1157 Last data filed at 04/09/2021 0636 Gross per 24 hour Intake Output 450 ml Net -450 ml General Appearance: NAD, awake, morbidly obese HEENT: NC/AT, kayley JVD d/t body habitus Lungs: Distant , CTA bilaterally, no wheeze, rales or rhonchi, good air entry, good respiratory effort Heart: Heart sounds are regular, No murmur, gallop or rub appreciated Abdomen: +BS, soft, nttp, nd, +abdominal wall edema Extremities: +2 upper and lower bilateral ext edema. Difficult to determine if just obesity vs third spacing. Neurologic: no asterixis, moving all ext Affect: confused Access: RIJ TDC, normal exam Current Facility-Administered Medications Medication Dose Route Frequency Provider Last Rate Last Admin insulin lispro (HUMALOG) injection vial 5 Units 5 Units SubCUTAneous TID PRINCE Ochoa, DO 5 Units at 04/09/21 1137 glucose (GLUTOSE) 40 % oral gel 15 g 15 g Oral PRN Ladonna Thorntonub, DO dextrose 50 % IV solution 12.5 g IntraVENous PRN Ladonna Shaub, DO glucagon (rDNA) injection 1 mg 1 mg IntraMUSCular PRN Ladonna Shaub, DO dextrose 5 % solution 100 mL/hr IntraVENous PRN Ladonnakumar Thorntonub, DO apixaban (ELIQUIS) tablet 5 mg 5 mg Oral BID Aubrie Whiting MD 5 mg at 04/09/21 0825 insulin glargine (LANTUS) injection vial 15 Units 15 Units SubCUTAneous Nightly Zhao Willis MD 15 Units at 04/08/21 203 sennosides-docusate sodium (SENOKOT-S) 8.6-50 MG tablet 2 tablet 2 tablet Oral Daily Zhao Willis MD 2 tablet at 04/08/21 0810 collagenase ointment Topical Q MWF Phillip Victor MD Given by Other at 04/08/21 0900 oxyCODONE (ROXICODONE) immediate release tablet 5 mg 5 mg Oral Q6H PRN Zhao Willis MD 5 mg at 04/08/21 1714 heparin (porcine) injection 2,100 Units 2,100 Units IntraCATHeter PRN Reynold Garner MD 2,100 Units at 04/04/21 1200 heparin (porcine) injection 2,200 Units 2,200 Units IntraCATHeter PRN Reynold Garner MD 2,200 Units at 04/04/21 1200 baclofen (LIORESAL) tablet 5 mg 5 mg Oral BID Juan Adams DO 5 mg at 04/09/21 0824 melatonin tablet 3 mg 3 mg Oral Nightly Keon Young MD 3 mg at 04/08/21 203 acetaminophen (TYLENOL) tablet 975 mg 975 mg Oral TID Oriana Cho, DO 975 mg at 04/09/21 1136 aspirin chewable tablet 81 mg 81 mg Oral Daily Oriana Cho, DO 81 mg at 04/09/21 0827 atorvastatin (LIPITOR) tablet 20 mg 20 mg Oral Daily Oriana Cho, DO 20 mg at 04/09/21 0825 calcium-cholecalciferol 500-200 MG-UNIT per tablet 1 tablet 1 tablet Oral Daily Oriana Cho, DO 1 tablet at 04/09/21 0826 donepezil (ARICEPT) tablet 5 mg 5 mg Oral Nightly Oriana Cho, DO 5 mg at 04/08/212031 pantoprazole (PROTONIX) tablet 40 mg 40 mg Oral QAM AC Oriana Cho, DO 40 mg at 04/09/21 0615 gabapentin (NEURONTIN) capsule 100 mg 100 mg Oral BID Oriana Cho, DO 100 mg at 04/09/21 0824 insulin lispro (HUMALOG) injection vial 0-6 Units 0-6 Units SubCUTAneous TID WC Oriana Cho, DO 2 Units at 04/09/21 1137 mineral oil-hydrophilic petrolatum (AQUAPHOR) ointment Topical BID Oriana Cho, DO Given at 04/09/21 0829 polyethylene glycol (GLYCOLAX) packet 17 g 17 g Per G Tube Daily PRN Oriana Cho, DO ipratropium-albuterol (DUONEB) nebulizer solution 1 ampule 1 ampule Inhalation Q4H PRN Leonel Sood MD sodium chloride flush 0.9 % injection 10 mL 10 mL IntraCATHeter Q12H Leonel Sood MD 10 mL at 04/09/21 0325 sodium chloride flush 0.9 % injection 10 mL 10 mL IntraCATHeter PRN Leonel Sood MD heparin flush 100 UNIT/ML injection 250 Units 250 Units IntraCATHeter PRN Leonel Sood MD 250 Units at 04/01/21 1736 miconazole (MICOTIN) 2 % powder Topical BID Leonel Sood MD Given at 04/09/21 0828 stomahesive in petrolatum (ET MIX) Topical PRN Leonel Sood MD Given by Other at 04/08/21 0900 stomahesive in petrolatum (ET MIX) Topical BID Leonel Sood MD Given at 04/09/21 0828 sodium chloride flush 0.9 % injection 5-40 mL 5-40 mL IntraVENous 2 times per day Leonel Sood MD 10 mL at 04/09/21 0826 sodium chloride flush 0.9 % injection 5-40 mL 5-40 mL IntraVENous PRN Leonel Sood MD 0.9 % sodium chloride infusion 25 mL IntraVENous PRN Leonel Sood MD ondansetron (ZOFRAN-ODT) disintegrating tablet 4 mg 4 mg Oral Q8H PRN Leonel Sood MD Or ondansetron (ZOFRAN) injection 4 mg 4 mg IntraVENous Q6H PRN Leonel Sood MD glucose (GLUTOSE) 40 % oral gel 15 g 15 g Oral PRN Leonel Sood MD dextrose 50 % IV solution 12.5 g IntraVENous PRN Leonel Sood MD glucagon (rDNA) injection 1 mg 1 mg IntraMUSCular PRN Leonel Sood MD dextrose 5 % solution 100 mL/hr IntraVENous PRN Leonel Sood MD dextrose sodium chloride dextrose Data/ Recent Labs 04/07/21 0640 04/08/21 0140 04/09/21 0118 WBC 3.7 4.2 4.8 HGB 8.7* 8.1* 8.8* HCT 27.2* 25.0* 27.8* MCV 87.3 87.5 87.7 PLT 206 187 210 Recent Labs 04/07/21 0640 04/07/21 0640 04/08/21 0140 04/08/21 1934 04/09/21 0118 NA 139 -- 137 -- 139 K 4.0 -- 3.6 -- 4.0 CL 102 -- 103 -- 101 CO2 30 -- 30 -- 29 GLUCOSE 205* -- 181* -- 215* PHOS 3.2 -- 3.5 -- 4.0 BUN 14 -- 18 -- 29* CREATININE 1.40* < > 1.62* 1.60* 1.65* < > = values in this interval not displayed. Assessment/Plan: Salazar Coyle 70 y.o. year old female who we are seeing in consultation for WHITLEY. # WHITLEY/ATN from Normotensive ATN (hypovolemia) on MH TEACHER since 03/17/2021 - Scr staying stable ~ 1.6 now, uop picking up??, monitor, BP stable - originally was iHD per [facility] schedule - Last HD 04/06 - 24 hr urine albino- undercoll sample, cannot interpret - reorder another 24 hr albino today, harish RN - will need jose catheter maintained for now Will HOLD off further iHD for now and trend crea and UO for recovery - Continue to hold acei and diuretics. - now w/ TDC #HTN - BP stable # Metabolic Encephalopathy suspected from gabapentin/baclofen - Pt with dementia at baseline - Noted on baclofen and gabapentin # Acute on Chronic Resp Acidosis from PHOEBE - Per primary - extubated 03/20 # Acute on Chronic Bilateral lower ext Cellulitis - Off abx - Noted multi gaby on wound culture # Anemia - Hgb stable #DM2 -defer to Primary Noted placement issues ongoing [facility] Images from the original note were not included. Med Team Progress Note Salazar Coyle : 1950(70 y.o.) Date: April 09, 2021 Med Team: Melissa Attending: Dr. Plascencia Chief Complaint: AMS Subjective: Ms Coyle is a 70 YO F w/ a PMHx of a-fib, TIIDM, lymphedema, & morbid obesity who was admitted on 03/09/21 for a right foot wound and was found to have osteomyelitis. While hospitalized became encephalopathic and hypotensive and subsequently developed acute hypoxic RF requiring intubation and pressor support. Underwent I&D of the R foot on 03/15/21 which grew providencia stuartii, pseudomonas, and MRSA which was subsequently treated with IV abx. During her stay developed WHITLEY requiring HD. Nephrology following and evaluating need for [facility]. - No acute events overnight. - Currently, patient is resting in bed. She does not endorse any acute complaints, (no chest pain, SOB). - Discussed kidney function, may not need HD, nephrology following - Jose catheter in place for 30 days, discussed removal and transition to wick catheter Agree with above Review of Systems Constitutional: Negative for chills, diaphoresis and fever. HENT: Negative for congestion and rhinorrhea. Respiratory: Negative for cough and shortness of breath. Cardiovascular: Positive for leg swelling. Negative for chest pain. Gastrointestinal: Negative for abdominal pain, constipation and nausea. Genitourinary: Negative for pelvic pain. Musculoskeletal: Negative for arthralgias, back pain and myalgias. Skin: Positive for wound. Neurological: Negative for headaches. Psychiatric/Behavioral: Negative for sleep disturbance. Scheduled Meds: insulin lispro 5 Units SubCUTAneous TID WC apixaban 5 mg Oral BID insulin glargine 15 Units SubCUTAneous Nightly sennosides-docusate sodium 2 tablet Oral Daily collagenase Topical Q MWF Baclofen 5 mg Oral BID melatonin 3 mg Oral Nightly acetaminophen 975 mg Oral TID aspirin 81 mg Oral Daily atorvastatin 20 mg Oral Daily calcium-cholecalciferol 1 tablet Oral Daily donepezil 5 mg Oral Nightly pantoprazole 40 mg Oral QAM AC gabapentin 100 mg Oral BID insulin lispro 0-6 Units SubCUTAneous TID WC mineral oil-hydrophilic petrolatum Topical BID sodium chloride flush 10 mL IntraCATHeter Q12H miconazole Topical BID stomahesive in petrolatum Topical BID sodium chloride flush 5-40 mL IntraVENous 2 times per day Continuous Infusions: dextrose sodium chloride dextrose PRN meds used in last 24hrs: Oxycodone 5 mg x 2 Objective: BP (!) 171/65 Pulse 70 Temp 97.6 F (36.4 C) (Temporal) Resp 16 Ht 5' 2" (1.575 m) Wt (!) 389 lb 4.8 oz (176.6 kg) SpO2 97% BMI 71.20 kg/m Physical Exam Vitals reviewed. Constitutional: General: She is not in acute distress. Appearance: Normal appearance. She is obese. She is not diaphoretic. HENT: Head: Normocephalic and atraumatic. Mouth/Throat: Mouth: Mucous membranes are moist. Pharynx: Oropharynx is clear. Eyes: General: No scleral icterus. Cardiovascular: Rate and Rhythm: Normal rate and regular rhythm. Heart sounds: No murmur heard. No gallop. Comments: Distant heart tones Pulmonary: Effort: Pulmonary effort is normal. No respiratory distress. Breath sounds: Normal breath sounds. No wheezing or rales. Abdominal: General: Bowel sounds are normal. There is no distension. Palpations: Abdomen is soft. Tenderness: There is no abdominal tenderness. Musculoskeletal: General: Swelling, tenderness, deformity and signs of injury present. Normal range of motion. Right lower leg: Edema present. Left lower leg: Edema present. Skin: General: Skin is warm and dry. Findings: Bruising and lesion (LE) present. Neurological: Mental Status: She is alert. Motor: Weakness present. Psychiatric: Mood and Affect: Mood normal. Behavior: Behavior normal. [facility] within last 24 hours Lab Results Component Value Date/Time WBC 4.8 04/09/2021 01:18 AM Hemoglobin 8.8 (L) 04/09/2021 01:18 AM Hematocrit 27.8 (L) 04/09/2021 01:18 AM Platelets 210 04/09/2021 01:18 AM MCV 87.7 04/09/2021 01:18 AM Lab Results Component Value Date/Time Sodium 139 04/09/2021 01:18 AM Potassium 4.0 04/09/2021 01:18 AM Chloride 101 04/09/2021 01:18 AM CO2 29 04/09/2021 01:18 AM BUN 29 (H) 04/09/2021 01:18 AM CREATININE 1.65 (H) 04/09/2021 01:18 AM CREATININE 1.60 (H) 04/08/2021 07:34 PM Glucose 215 (H) 04/09/2021 01:18 AM Calcium 9.2 04/09/2021 01:18 AM Phosphorus 4.0 04/09/2021 01:18 AM Assessment and Plan: WHITLEY/ATN on HD - Nephrology following - Last HD on 04/06/21 - UO 400cc past 24 hours - Scr 1.65 ~ unchanged - Continue to monitor UO Agree with above Acute on Chronic R foot Wound with Positive Providencia Stuartii, Pseudomonas, and MRSA - Treatment completed Chronic Lymphedema - I&D on 03/15/21 w/ clean margins - Completed abx therapy - Wound care managing dressing changes. - Oxycodone 5 mg PRN for pain and wound changes used x 2 Agree with above Type II DM with Hyperglycemia - glucose has been in 200's - Lantus to 15 U nightly - Humalog increased to 5U TID - Continue low dose sliding scale Agree with above Paroxysmal Afib - CHADSVASC = 4 - Eliquis 5mg BID Agree with above HTN - Controlled - PRN hydralazine ordered for SBP > 160 - No previous home medications - BP were stable prior, will watch today, consider adding BB if continued hypertension Agree with above HLD - Atorvastatin 20mg daily Hx of Dementia and Delirium - Donepezil 5mg nightly - Delirium precautions Morbid Obesity - Will need outpatient evaluation for obesity Dispo: Spoke with [facility] yesterday, she will be here throughout the weekend, likely to be discharged to SNF this upcoming week. SNF TBD depending on HD needs. Wishes to go back to - Goals of Care: FULL CODE - DVT Prophylaxis: Eliquis - GI Prophylaxis: Protonix daily - Diet: Dysphagia - soft and bite sized 5 carb control I have personally examined the patient and reviewed the case with the resident and or med student. I have personally taken a history, examined the patient, and performed the associated medical decision making activities. I have reviewed & verified the attested documentation. Unless otherwise noted below, this documentation reflects the history, physical exam, and medical decision making that I performed myself. I agree with the current plan of care including the workup, evaluation, management, and diagnosis. Care plan has been discussed. The above documentation has been reviewed and edited as needed to reflect the findings of my evaluation. Attending comments are in bold. I personally spent over 51% total time of 35 minutes coordinating care. I personally reviewed the chart, data, labs, radiology reports, and discussed the case with the nurse and resident team. [facility] Progress Note Subjective/ Salazar Coyle 70 y.o. year old female who we are seeing in consultation for WHITLEY. All labs / data/ chart and interval events are noted HD last on 04/06 BP has been stable Edema is noted AMS waxing and waining Making more UO??, recovery?? 24 hr collection in progress Lytes are as expected No other new issues No change in the PFSH at this time Complete ROS otherwise negative Objective/ Vitals: 04/07/21 0811 04/07/21201204/08/21 0630 04/08/21 0803 BP: 134/86 (!) 154/60 135/71 Pulse: 82 66 73 Resp: 18 18 18 Temp: 98.2 F (36.8 C) 97.7 F (36.5 C) 98.6 F (37 C) TempSrc: Temporal Temporal Temporal SpO2: 93% 96% 96% Weight: (!) 393 lb 12 oz (178.6 kg) Height: 24HR INTAKE/OUTPUT: Intake/Output Summary (Last 24 hours) at 04/08/2021 1236 Last data filed at 04/08/2021 0641 Gross per 24 hour Intake 120 ml Output 700 ml Net -580 ml General Appearance: NAD, awake, morbidly obese HEENT: NC/AT, kayley JVD d/t body habitus Lungs: Distant , CTA bilaterally, no wheeze, rales or rhonchi, good air entry, good respiratory effort Heart: Heart sounds are regular, No murmur, gallop or rub appreciated Abdomen: +BS, soft, nttp, nd, +abdominal wall edema Extremities: +2 upper and lower bilateral ext edema. Difficult to determine if just obesity vs third spacing. Neurologic: no asterixis, moving all ext Affect: confused Access: RIJ TDC, normal exam Current Facility-Administered Medications Medication Dose Route Frequency Provider Last Rate Last Admin apixaban (ELIQUIS) tablet 5 mg 5 mg Oral BID Aubrie Whiting MD insulin lispro (HUMALOG) injection vial 3 Units 3 Units SubCUTAneous TID WC Zhao Willis MD 3 Units at 04/08/21 1207 insulin glargine (LANTUS) injection vial 15 Units 15 Units SubCUTAneous Nightly Zhao Willis MD 15 Units at 04/07/21 2019 sennosides-docusate sodium (SENOKOT-S) 8.6-50 MG tablet 2 tablet 2 tablet Oral Daily Zhao Willis MD 2 tablet at 04/08/21 0810 collagenase ointment Topical Q MWF Phillip Victor MD oxyCODONE (ROXICODONE) immediate release tablet 5 mg 5 mg Oral Q6H PRN Zhao Willis MD 5 mg at 04/08/21 0810 heparin (porcine) injection 2,100 Units 2,100 Units IntraCATHeter PRN Reynold Garner MD 2,100 Units at 04/04/21 1200 heparin (porcine) injection 2,200 Units 2,200 Units IntraCATHeter PRN Reynold Garner MD 2,200 Units at 04/04/21 1200 baclofen (LIORESAL) tablet 5 mg 5 mg Oral BID Juan Adams, DO 5 mg at 04/08/21 0827 melatonin tablet 3 mg 3 mg Oral Nightly Keon Young MD 3 mg at 04/07/212015 acetaminophen (TYLENOL) tablet 975 mg 975 mg Oral TID Oriana Cho, DO 975 mg at 04/08/21 0810 aspirin chewable tablet 81 mg 81 mg Oral Daily Oriana Cho, DO 81 mg at 04/08/21 0810 atorvastatin (LIPITOR) tablet 20 mg 20 mg Oral Daily Oriana Cho, DO 20 mg at 04/08/21 0810 calcium-cholecalciferol 500-200 MG-UNIT per tablet 1 tablet 1 tablet Oral Daily Oriana Cho, DO 1 tablet at 04/08/21 08 donepezil (ARICEPT) tablet 5 mg 5 mg Oral Nightly Oriana Cho, DO 5 mg at 04/07/212017 pantoprazole (PROTONIX) tablet 40 mg 40 mg Oral QAM AC Oriana Cho, DO 40 mg at 04/07/21 0921 gabapentin (NEURONTIN) capsule 100 mg 100 mg Oral BID Oriana Cho, DO 100 mg at 04/08/21 0810 insulin lispro (HUMALOG) injection vial 0-6 Units 0-6 Units SubCUTAneous TID WC Oriana Cho, DO 1 Units at 04/08/21 1207 mineral oil-hydrophilic petrolatum (AQUAPHOR) ointment Topical BID Oriana Cho, DO Given at 04/07/212024 polyethylene glycol (GLYCOLAX) packet 17 g 17 g Per G Tube Daily PRN Oriana Cho, DO ipratropium-albuterol (DUONEB) nebulizer solution 1 ampule 1 ampule Inhalation Q4H PRN Leonel Sood MD sodium chloride flush 0.9 % injection 10 mL 10 mL IntraCATHeter Q12H Leonel Sood MD 10 mL at 04/08/21 0536 sodium chloride flush 0.9 % injection 10 mL 10 mL IntraCATHeter PRN Leonel Sood MD heparin flush 100 UNIT/ML injection 250 Units 250 Units IntraCATHeter PRN Leonel Sood MD 250 Units at 04/01/21 1736 miconazole (MICOTIN) 2 % powder Topical BID Leonel Sood MD Given at 04/07/212023 stomahesive in petrolatum (ET MIX) Topical PRN Leonel Sood MD stomahesive in petrolatum (ET MIX) Topical BID Leonel Sood MD Given at 04/07/212024 sodium chloride flush 0.9 % injection 5-40 mL 5-40 mL IntraVENous 2 times per day Leonel Sood MD 10 mL at 04/08/21 0811 sodium chloride flush 0.9 % injection 5-40 mL 5-40 mL IntraVENous PRN Leonel Sood MD 0.9 % sodium chloride infusion 25 mL IntraVENous PRN Leonel Sood MD ondansetron (ZOFRAN-ODT) disintegrating tablet 4 mg 4 mg Oral Q8H PRN Leonel Sood MD Or ondansetron (ZOFRAN) injection 4 mg 4 mg IntraVENous Q6H PRN Leonel Sood MD glucose (GLUTOSE) 40 % oral gel 15 g 15 g Oral PRN Leonel Sood MD dextrose 50 % IV solution 12.5 g IntraVENous PRN Leonel Sood MD glucagon (rDNA) injection 1 mg 1 mg IntraMUSCular PRN Leonel Sood MD dextrose 5 % solution 100 mL/hr IntraVENous PRN Leonel Sood MD sodium chloride dextrose Data/ Recent Labs 04/06/21 0307 04/07/21 0640 04/08/21 0140 WBC 4.0 3.7 4.2 HGB 7.9* 8.7* 8.1* HCT 25.1* 27.2* 25.0* MCV 87.6 87.3 87.5 PLT 200 206 187 Recent Labs 04/06/21 0307 04/07/21 0640 04/08/21 0140 NA 136 139 137 K 3.7 4.0 3.6 CL 102 102 103 CO2 27 30 30 GLUCOSE 224* 205* 181* PHOS 3.4 3.2 3.5 BUN 18 14 18 CREATININE 1.72* 1.40* 1.60* 1.62* Assessment/Plan: Salazar Coyle 70 y.o. year old female who we are seeing in consultation for WHITLEY. # WHITLEY/ATN from Normotensive ATN (hypovolemia) on MH TEACHER since 03/17/2021 - Scr as expected, uop picking up??, monitor, BP stable - originally was iHD per [facility] schedule - Last HD 04/06 - 24 hr urine albino in progress to assess for recovery and therefore will need jose catheter maintained for now Will HOLD off further iHD for now and trend crea and UO for recovery - Continue to hold acei and diuretics. - now w/ TDC #HTN - BP stable # Metabolic Encephalopathy suspected from gabapentin/baclofen - Pt with dementia at baseline - Noted on baclofen and gabapentin # Acute on Chronic Resp Acidosis from PHOEBE - Per primary - extubated 03/20 # Acute on Chronic Bilateral lower ext Cellulitis - Off abx - Noted multi gaby on wound culture # Anemia - Hgb stable #DM2 -defer to Primary Noted placement issues ongoing [facility] Images from the original note were not included. [facility] [address] [address] Dept: [phone] Loc: [phone] Orthopedic Progress Note Name: Salazar Coyle Date:04/08/2021 Attending:Jamie Rubio DO Subjective CHIEF COMPLAINT: s/p right foot I&D w/ vac application on 03/15 HPI: Patient has history of dementia but is currently alert and oriented x3. The patient denies any fevers, chills, or feelings of malaise at this time. The patient reports that her leg is feeling "a lot better" at this time. She continues to request that I do not touch her leg due to fear of pain, however she was agreeable to examination today and tolerated this well. Wound care changed vacuum today (04/08/2021). Patient denies any new areas of pain at this time. She is looking forward to being discharged soon. Objective PAST MEDICAL HISTORY Diagnosis Date A-fib (HCC) Anemia Diabetes (HCC) Lymphedema Obesity PAST SURGICAL HISTORY History reviewed. No pertinent surgical history. HOME MEDICATIONS Prior to Admission medications Medication Sig Start Date End Date Taking? Authorizing Provider acetaminophen (TYLENOL) 325 MG tablet Take 975 mg by mouth 3 times daily Yes Historical Provider, Ascorbic Acid (VITAMIN C) 250 MG tablet Take 500 mg by mouth daily Yes Historical Provider, aspirin 81 MG chewable tablet Take 81 mg by mouth daily Yes Historical Provider, atorvastatin (LIPITOR) 20 MG tablet Take 20 mg by mouth daily Yes Historical Provider, baclofen (LIORESAL) 20 MG tablet Take 20 mg by mouth 3 times daily Yes Historical Provider, bumetanide (BUMEX) 0.5 MG tablet Take 0.5 mg by mouth 2 times daily Yes Historical Provider, calcium-vitamin D (OSCAL-500) 500-200 MG-UNIT per tablet Take 1 tablet by mouth daily Yes Historical Provider, docusate sodium (COLACE) 100 MG capsule Take 100 mg by mouth 2 times daily Yes Historical Provider, donepezil (ARICEPT) 5 MG tablet Take 5 mg by mouth nightly Yes Historical Provider, gabapentin (NEURONTIN) 300 MG capsule Take 300 mg by mouth 2 times daily. Yes Historical Provider, insulin lispro (HUMALOG) 100 UNIT/ML injection vial Inject 3 Units into the skin 3 times daily (before meals) Yes Historical Provider, magnesium oxide (MAG-OX) 400 MG tablet Take 400 mg by mouth daily Yes Historical Provider, oxyCODONE 5 MG capsule Take 5 mg by mouth every 6 hours as needed for Pain. Yes Historical Provider, piperacillin-tazobactam (ZOSYN) 3-0.375 GM per 50ML IVPB Infuse 3,375 mg intravenously every 8 hours Yes Historical Provider, ELIQUIS 5 MG TABS tablet 01/29/21 Historical Provider, insulin glargine (LANTUS) 100 UNIT/ML injection vial Inject 35 Units into the skin nightly Historical Provider, insulin glargine (LANTUS) 100 UNIT/ML injection vial Inject 55 Units into the skin every morning Historical Provider, CURRENT HOSPITAL MEDICATIONS Current Facility-Administered Medications: insulin lispro (HUMALOG) injection vial 3 Units, 3 Units, SubCUTAneous, TID WC, Zhao Willis MD, 3 Units at 04/08/21 0826 insulin glargine (LANTUS) injection vial 15 Units, 15 Units, SubCUTAneous, Nightly, Zhao Willis MD, 15 Units at 04/07/21 2019 sennosides-docusate sodium (SENOKOT-S) 8.6-50 MG tablet 2 tablet, 2 tablet, Oral, Daily, Zhao Willis MD, 2 tablet at 04/08/21 0810 collagenase ointment, , Topical, Q MWF, Phillip Victor MD oxyCODONE (ROXICODONE) immediate release tablet 5 mg, 5 mg, Oral, Q6H PRN, Zhao Willis MD, 5 mg at 04/08/21 0810 heparin (porcine) injection 2,100 Units, 2,100 Units, IntraCATHeter, PRN, Reynold Garner MD, 2,100 Units at 04/04/21 1200 heparin (porcine) injection 2,200 Units, 2,200 Units, IntraCATHeter, PRN, Reynold Garner MD, 2,200 Units at 04/04/21 1200 baclofen (LIORESAL) tablet 5 mg, 5 mg, Oral, BID, Juan Adams, DO, 5 mg at 04/08/21 08 melatonin tablet 3 mg, 3 mg, Oral, Nightly, Keon Young MD, 3 mg at 04/07/212015 acetaminophen (TYLENOL) tablet 975 mg, 975 mg, Oral, TID, Oriana Cho, DO, 975 mg at 04/08/21 0810 aspirin chewable tablet 81 mg, 81 mg, Oral, Daily, Oriana Cho, DO, 81 mg at 04/08/21 0810 atorvastatin (LIPITOR) tablet 20 mg, 20 mg, Oral, Daily, Oriana Cho, DO, 20 mg at 04/08/21 0810 calcium-cholecalciferol 500-200 MG-UNIT per tablet 1 tablet, 1 tablet, Oral, Daily, Oriana Cho, DO, 1 tablet at 04/08/21 0810 donepezil (ARICEPT) tablet 5 mg, 5 mg, Oral, Nightly, Oriana Cho, DO, 5 mg at 04/07/212017 pantoprazole (PROTONIX) tablet 40 mg, 40 mg, Oral, QAM AC, Oriana Cho, DO, 40 mg at 04/07/21 09 gabapentin (NEURONTIN) capsule 100 mg, 100 mg, Oral, BID, Oriana Cho, DO, 100 mg at 04/08/21 0810 insulin lispro (HUMALOG) injection vial 0-6 Units, 0-6 Units, SubCUTAneous, TID WC, Oriana Cho, DO, 1 Units at 04/08/21 08 mineral oil-hydrophilic petrolatum (AQUAPHOR) ointment, , Topical, BID, Oriana Cho, DO, Given at 04/07/212024 polyethylene glycol (GLYCOLAX) packet 17 g, 17 g, Per G Tube, Daily PRN, Oriana Cho, DO heparin (porcine) injection 5,000 Units, 5,000 Units, SubCUTAneous, 3 times per day, Leonel Sood MD, 5,000 Units at 04/08/21 0536 ipratropium-albuterol (DUONEB) nebulizer solution 1 ampule, 1 ampule, Inhalation, Q4H PRN, Leonel Sood MD sodium chloride flush 0.9 % injection 10 mL, 10 mL, IntraCATHeter, Q12H, Leonel Sood MD, 10 mL at 04/08/21 0536 heparin flush 100 UNIT/ML injection 250 Units, 250 Units, IntraCATHeter, Q12H, Leonel Sood MD, 250 Units at 04/08/21 0536 sodium chloride flush 0.9 % injection 10 mL, 10 mL, IntraCATHeter, PRN, Leonel Sood MD heparin flush 100 UNIT/ML injection 250 Units, 250 Units, IntraCATHeter, PRN, Leonel Sood MD, 250 Units at 04/01/21 1736 miconazole (MICOTIN) 2 % powder, , Topical, BID, Leonel Sood MD, Given at 04/07/212023 stomahesive in petrolatum (ET MIX), , Topical, PRN, Leonel Sood MD stomahesive in petrolatum (ET MIX), , Topical, BID, Leonel Sood MD, Given at 04/07/212024 sodium chloride flush 0.9 % injection 5-40 mL, 5-40 mL, IntraVENous, 2 times per day, Leonel Sood MD, 10 mL at 04/08/21 0811 sodium chloride flush 0.9 % injection 5-40 mL, 5-40 mL, IntraVENous, PRN, Leonel Sood MD 0.9 % sodium chloride infusion, 25 mL, IntraVENous, PRN, Leonel Sood MD ondansetron (ZOFRAN-ODT) disintegrating tablet 4 mg, 4 mg, Oral, Q8H PRN OR ondansetron (ZOFRAN) injection 4 mg, 4 mg, IntraVENous, Q6H PRN, Leonel Sood MD glucose (GLUTOSE) 40 % oral gel 15 g, 15 g, Oral, PRN, Leonel Sood MD dextrose 50 % IV solution, 12.5 g, IntraVENous, PRN, Leonel Sood MD glucagon (rDNA) injection 1 mg, 1 mg, IntraMUSCular, PRN, Leonel Sood MD dextrose 5 % solution, 100 mL/hr, IntraVENous, PRN, Leonel Sood MD ALLERGIES: Patient has no known allergies. SOCIAL HISTORY: Social History Socioeconomic History Marital status: Spouse name: Not on file Number of children: Not on file Years of education: Not on file Highest education level: Not on file Occupational History Not on file Tobacco Use Smoking status: Not on file Smokeless tobacco: Not on file Substance and Sexual Activity Alcohol use: Not on file Drug use: Not on file Sexual activity: Not on file Other Topics Concern Not on file Social History Narrative Not on file Social Determinants of Health Financial Resource Strain: Difficulty of Paying Living Expenses: Not on file Food Insecurity: Worried About Running Out of Food in the Last Year: Not on file Ran Out of Food in the Last Year: Not on file Transportation Needs: Lack of Transportation (Medical): Not on file Lack of Transportation (Non-Medical): Not on file Physical Activity: Days of Exercise per Week: Not on file Minutes of Exercise per Session: Not on file Stress: Feeling of Stress : Not on file Social Connections: Frequency of Communication with Friends and Family: Not on file Frequency of Social Gatherings with Friends and Family: Not on file Attends Gnosticism Services: Not on file Active Member of Clubs or Organizations: Not on file Attends Club or Organization Meetings: Not on file Marital Status: Not on file Intimate Partner Violence: Fear of Current or Ex-Partner: Not on file Emotionally Abused: Not on file Physically Abused: Not on file Sexually Abused: Not on file Housing Stability: Unable to Pay for Housing in the Last Year: Not on file Number of Places Lived in the Last Year: Not on file Unstable Housing in the Last Year: Not on file FAMILY HISTORY: History reviewed. No pertinent family history. Further Family History is noncontributory to this injury. REVIEW OF SYSTEMS: Review of Systems - General ROS: negative for - chills, fatigue, fever, malaise or night sweats Psychological ROS: negative Ophthalmic ROS: negative ENT ROS: negative for - headaches or sore throat Hematological and Lymphatic ROS: negative for - bleeding problems or blood clots Respiratory ROS: no cough, shortness of breath, or wheezing Cardiovascular ROS: no chest pain or dyspnea on exertion Gastrointestinal ROS: negative Musculoskeletal ROS: See HPI Neurological ROS: negative for - bowel and bladder control changes, gait disturbance or numbness/tingling All other systems reviewed and are negative VITALS: Vitals: 04/07/21 0811 04/07/21 2013 04/08/21 0630 04/08/21 0803 BP: 134/86 (!) 154/60 135/71 Pulse: 82 66 73 Resp: 18 18 18 Temp: 98.2 F (36.8 C) 97.7 F (36.5 C) 98.6 F (37 C) TempSrc: Temporal Temporal Temporal SpO2: 93% 96% 96% Weight: (!) 393 lb 12 oz (178.6 kg) Height: PHYSICAL EXAM: GENERAL: Patient is well developed/well nourished in NAD. MOOD AND AFFECT: Calm appropriate to situation GAIT AND STATION: Patient is in bed and unable to ambulate secondary to known injury. COORDINATION and BALANCE: Patient is grossly coordinated RLE Surgically absent fifth toe. Wound vacuum in place and is maintaining good suction. The canister has minimal fluid at this time INSPECTION DRESSING/SKIN: Skin changes related to lymphedema present over the anterior aspect of the lyons. There is granulation tissue over the plantar lateral aspect of the foot, based on the photo taken by wound care during wound vacuum change today (04/08/21). See photos below NEUROLOGICAL: SILT intact Saphenous/Superficial Peroneal/Deep Peroneal/Tibial/Sural distributions MOTOR: Patient can perform dorsiflexion, plantarflexion, and toe wiggle VASCULAR: Palpable dorsalis pedis pulse. Capillary refill to lower extremity digits 1-4 was brisk and all digits were warm to touch. Right leg Right lateral plantar foot LABS: CBC: Lab Results Component Value Date WBC 4.2 04/08/2021 RBC 2.86 04/08/2021 BMP: Lab Results Component Value Date GLUCOSE 181 04/08/2021 CO2 30 04/08/2021 BUN 18 04/08/2021 CREATININE 1.60 04/08/2021 CREATININE 1.62 04/08/2021 CALCIUM 8.7 04/08/2021 PT/INR: Lab Results Component Value Date INR 1.1 03/14/2021 APTT 26.5 03/08/2021 Type and Screen: Lab Results Component Value Date LABABO A 03/15/2021 RH POS 03/15/2021 LABANTI NEG 03/15/2021 CRP: Lab Results Component Value Date CRP 15.0 03/08/2021 ESR: Lab Results Component Value Date SEDRATE 62 03/08/2021 HgBA1c: Lab Results Component Value Date LABA1C 7.6 03/08/2021 The above labs were reviewed by me. Assessment Salazar is a 70 y.o.female s/p right foot I&D w vac application on 03/15 Plan -NWB RLE -No return to OR planned, plan for definitive management of wound with wound vac changes, infection source controlled -Abx per ICU/ID -Wound care to continue M/W/F wound vac changes -DVT prophylaxis/medical management/pain control per 1 team -Patient was scheduled a follow up appointment for 04/20/21 at 2:00PM with Dr. Flores's LEONIDAS, Radha Bergman. She was advised to arrive 15 minutes prior to scheduled appointment and to bring with her photo ID and insurance card. -Upon discharge, plan is for patient to be discharged to [facility] if patient requires hemodialysis or patient will be discharged to [facility] if no dialysis is deemed necessary, per most recent memory care program resident note (04/07/21) -Ortho to sign off. Please page automobile sales consultant resident via Perfect [employer] or pager [phone] with any questions. I spent over 51% total time >25 minutes counseling or coordinating care and provided discussion regarding discharge instructions and follow up. We discussed the natural course of surgery and expectations moving forward. Patient voiced their understanding and is agreeable with the current plan. All questions were answered. Patient was advised to contact the office with any questions or concerns. Images from the original note were not included. Wound Care follow up visit: (focused assessment: Right plantar foot wound VAC dressing change) Pt premedicated for pain per medical staff services manager with oral pain medication, prior to wound VAC dressing change. Old dressing removed from right plantar foot without difficulties. Right plantar foot with full thickness surgical wound with 70% pink-red tissues, 30% thin yellow-brown slough and exposed bone palpated (see photo below) (see 04/05 progress note for measurements) Periwound clear, no erythema or induration. Small amount of serosang drainage noted on old dressing. No odor or purulence noted. Wound and periwound cleansed with saline, patted dry and cavilon no sting applied to periwound. Santyl ointment applied to slough tissues. 1 piece of white foam applied over bone, topped with 1 piece of black foam. Trac pad bridged to dorsal foot. Adapt ring used along base of toes to help achieve/maintain seal. Wound VAC well sealed at 125 mmHg continuous suction. Secured with kerlix. Pt tolerated the dressing ok but screamed when Right leg lifted slightly for dressing to be reapplied to heel. HeelMedix boot in place. Tips of right great toe and 4th toe with dry eschars. Cleansed with saline, patted dry. Right plantar heel with Stage 2 pressure injury (difficult to fully assess due to pt not allowing her leg to be lifted.)[place] tissues with surrounding pink epithelial tissues. Periwound clear. No purulence. Cleansed with saline, patted dry, and covered with mepilex 4x4 foam dressing. Padded with ABD and secured with kerlix. Unable to assess medial plantar heel at this time due to pt intolerance to dressing change and further assessment of heel. Wound Care will continue to follow pt for wound VAC dressing changes M//. Will plan for next dressing change Sunday. Please page Wound Care Team for any questions or concerns at pager [phone]. Images from the original note were not included. Med Team Progress Note Salazar Coyle : 1950(70 y.o.) Date: April 08, 2021 Med Team: Melissa Attending: Dr. Sanchez Chief Complaint: AMS Subjective: Admitted 03/09/21 for RT wound. Yesterday plan awaiting placement and neprho doing 24 hour albino to assess recovery, holding off iHD and trending crea and UO. - No acute events overnight. - Currently, patient is resting in bed. She does not endorse any acute complaints, (no chest pain, SOB). -500cc's out + 75cc's in jose. Review of Systems Constitutional: Negative for chills, diaphoresis, fatigue and fever. HENT: Negative for congestion, postnasal drip, rhinorrhea and sinus pain. Respiratory: Negative for cough, chest tightness, shortness of breath and wheezing. Cardiovascular: Negative for chest pain, palpitations and leg swelling. Gastrointestinal: Negative for abdominal distention, abdominal pain, constipation, diarrhea, nausea and vomiting. Genitourinary: Negative for flank pain and hematuria. Musculoskeletal: Negative for arthralgias and back pain. Neurological: Positive for weakness. Negative for dizziness and headaches. Psychiatric/Behavioral: Negative for agitation and behavioral problems. All other systems reviewed and are negative. Scheduled Meds: insulin lispro 3 Units SubCUTAneous TID WC insulin glargine 15 Units SubCUTAneous Nightly sennosides-docusate sodium 2 tablet Oral Daily collagenase Topical Q MWF Baclofen 5 mg Oral BID melatonin 3 mg Oral Nightly acetaminophen 975 mg Oral TID aspirin 81 mg Oral Daily atorvastatin 20 mg Oral Daily calcium-cholecalciferol 1 tablet Oral Daily donepezil 5 mg Oral Nightly pantoprazole 40 mg Oral QAM AC gabapentin 100 mg Oral BID insulin lispro 0-6 Units SubCUTAneous TID WC mineral oil-hydrophilic petrolatum Topical BID heparin (porcine) 5,000 Units SubCUTAneous 3 times per day sodium chloride flush 10 mL IntraCATHeter Q12H heparin flush 250 Units IntraCATHeter Q12H miconazole Topical BID stomahesive in petrolatum Topical BID sodium chloride flush 5-40 mL IntraVENous 2 times per day Continuous Infusions: sodium chloride dextrose PRN meds used in last 24hrs: oxy X2 Objective: BP (!) 154/60 Pulse 66 Temp 97.7 F (36.5 C) (Temporal) Resp 18 Ht 5' 2" (1.575 m) Wt (!) 393 lb 12 oz (178.6 kg) SpO2 96% BMI 72.02 kg/m Physical Exam Constitutional: General: She is not in acute distress. Appearance: Normal appearance. She is obese. She is not diaphoretic. HENT: Head: Normocephalic and atraumatic. Right Ear: External ear normal. Left Ear: External ear normal. Nose: Nose normal. Mouth/Throat: Mouth: Mucous membranes are moist. Pharynx: Oropharynx is clear. Eyes: General: No scleral icterus. Conjunctiva/sclera: Conjunctivae normal. Pupils: Pupils are equal, round, and reactive to light. Cardiovascular: Rate and Rhythm: Normal rate and regular rhythm. Heart sounds: No murmur heard. No friction rub. No gallop. Pulmonary: Effort: Pulmonary effort is normal. No respiratory distress. Breath sounds: Normal breath sounds. No wheezing or rales. Chest: Chest wall: No tenderness. Abdominal: General: Bowel sounds are normal. There is no distension. Palpations: Abdomen is soft. There is no mass. Tenderness: There is no abdominal tenderness. There is no guarding. Musculoskeletal: General: Swelling, tenderness and deformity present. Normal range of motion. Cervical back: Normal range of motion and neck supple. No rigidity. Right lower leg: Edema present. Left lower leg: Edema present. Lymphadenopathy: Cervical: No cervical adenopathy. Skin: General: Skin is warm and dry. Findings: Bruising and lesion (LE) present. No erythema or rash. Neurological: Mental Status: She is alert and oriented to person, place, and time. Sensory: No sensory deficit. Motor: Weakness present. Coordination: Coordination normal. Psychiatric: Mood and Affect: Mood normal. Behavior: Behavior normal. [facility] within last 24 hours Lab Results Component Value Date/Time WBC 4.2 04/08/2021 01:40 AM Hemoglobin 8.1 (L) 04/08/2021 01:40 AM Hematocrit 25.0 (L) 04/08/2021 01:40 AM Platelets 187 04/08/2021 01:40 AM MCV 87.5 04/08/2021 01:40 AM Lab Results Component Value Date/Time Sodium 137 04/08/2021 01:40 AM Potassium 3.6 04/08/2021 01:40 AM Chloride 103 04/08/2021 01:40 AM CO2 30 04/08/2021 01:40 AM BUN 18 04/08/2021 01:40 AM CREATININE 1.62 (H) 04/08/2021 01:40 AM Glucose 181 (H) 04/08/2021 01:40 AM Calcium 8.7 04/08/2021 01:40 AM Phosphorus 3.5 04/08/2021 01:40 AM Assessment and Plan: Acute Metabolic, Hypercapnic Encephalopathy (Resolved)/Delirium (Delirium)/Hx of COPD - SW/TCC to finalize disposition for patient - No beds at [facility], will update Sunday - If no HD needed, can go to [facility] With ATN on HD MWF - Nephrology consulted - initiate 24 hr albino vidhi to assess for recovery - hold off further HD now trend Crea & UO for recovery - 1.62 Cr increased from 1.4 yesterday Acute on Chronic R foot Wound with Positive Providencia Stuartii, Pseudomonas, and MRSA/ Chronic Lymphedema Chronic pain - Wound care managing dressing changes. - Low dose ativan PRN for dressing changes - oxycodone & gabapentin - sennakot-S HTN 154/60 - Consider PRN hydralazine if hypertensive (160-180s) - stopped bumex on hospital admission Type II DM with Hyperglycemia / Dysphagia - glucose has been in 180s - Lantus to 15 U nightly - Humalog 3 U TID - Continue low dose sliding scale Hx of Dementia - Donepezil 5mg nightly - Baclofen BID - Delirium precautions Morbid Obesity / HLD - Will need outpatient evaluation for obesity - Atorvastatin 20mg daily Paroxysmal Afib - Continue ASA - started on eliquis 5mg BID - Goals of Care: FULL CODE - DVT Prophylaxis: eliquis - GI Prophylaxis: Protonix daily refused most recent dose - Diet: Dysphagia - soft and bite sized 5 carb control Associated attestation - Jet Sanchez MD - 04/08/2021 2:35 PM EST I saw and evaluated the patient. I agree with the findings and plan of care as documented in the resident's note, except as noted in Green text. Patient seen and examined personally at 0918 (Date of Service: 04/08/21) Arias Changes to Care Plan: - Assessment for renal recovery per nephrology. 24-hour urine collection undergoing. - Restart apixaban for patient's A. fib. - Awaiting placement. Location will be dependent on if patient needs hemodialysis. I spent over 51% total time of 23 minutes counseling (or coordinating care). Discussed current plan of care with patient. Coordinated care with resident team. [facility] Progress Note Subjective/ Salazar Amandaford 70 y.o. year old female who we are seeing in consultation for [facility]. All labs / data/ chart and interval events are noted HD last on 04/06 BP has been stable Edema is noted AMS waxing and waining Making more UO??, recovery?? Lytes are as expected No other new issues No change in the PFSH at this time Complete ROS otherwise negative Objective/ Vitals: 04/06/21 1142 04/06/21 1155 04/06/21 1935 04/07/21 0811 BP: (!) 146/72 (!) 163/84 134/86 Pulse: 75 70 82 Resp: 16 20 16 18 Temp: 96.8 F (36 C) 98.6 F (37 C) 97.1 F (36.2 C) 98.2 F (36.8 C) TempSrc: Temporal Temporal Temporal SpO2: 95% 92% 93% 93% Weight: Height: 24HR INTAKE/OUTPUT: Intake/Output Summary (Last 24 hours) at 04/07/2021 1108 Last data filed at 04/07/2021 0822 Gross per 24 hour Intake 500 ml Output 5075 ml Net -4575 ml General Appearance: NAD, awake, morbidly obese HEENT: NC/AT, [place] JVD d/t body habitus Lungs: Distant , CTA bilaterally, no wheeze, rales or rhonchi, good air entry, good respiratory effort Heart: Heart sounds are regular, No murmur, gallop or rub appreciated Abdomen: +BS, soft, nttp, nd, +abdominal wall edema Extremities: +2 upper and lower bilateral ext edema. Difficult to determine if just obesity vs third spacing. Neurologic: no asterixis, moving all ext Affect: confused Access: RIJ TDC, normal exam Current Facility-Administered Medications Medication Dose Route Frequency Provider Last Rate Last Admin insulin lispro (HUMALOG) injection vial 3 Units 3 Units SubCUTAneous TID WC Zhao Willis MD 3 Units at 04/07/21 0819 insulin glargine (LANTUS) injection vial 15 Units 15 Units SubCUTAneous Nightly Zhao Willis MD 15 Units at 04/06/212139 sennosides-docusate sodium (SENOKOT-S) 8.6-50 MG tablet 2 tablet 2 tablet Oral Daily Zhao Willis MD 2 tablet at 04/07/21 0814 [START ON 04/08/2021] collagenase ointment Topical Q MWF Phillip Victor MD oxyCODONE (ROXICODONE) immediate release tablet 5 mg 5 mg Oral Q6H PRN Zhao Willis MD 5 mg at 04/05/21 214 heparin (porcine) injection 2,100 Units 2,100 Units IntraCATHeter PRN Reynold Garner MD 2,100 Units at 04/04/21 1200 heparin (porcine) injection 2,200 Units 2,200 Units IntraCATHeter PRN Reynold Garner MD 2,200 Units at 04/04/21 1200 baclofen (LIORESAL) tablet 5 mg 5 mg Oral BID Juan Adams, DO 5 mg at 04/07/21 0814 melatonin tablet 3 mg 3 mg Oral Nightly Keon Young MD 3 mg at 04/06/21 204 acetaminophen (TYLENOL) tablet 975 mg 975 mg Oral TID Oriana Cho, DO 975 mg at 04/07/21 0813 aspirin chewable tablet 81 mg 81 mg Oral Daily Oriana Cho, DO 81 mg at 04/07/21 0814 atorvastatin (LIPITOR) tablet 20 mg 20 mg Oral Daily Oriana Cho, DO 20 mg at 04/07/21 0814 calcium-cholecalciferol 500-200 MG-UNIT per tablet 1 tablet 1 tablet Oral Daily Oriana Cho, DO 1 tablet at 04/07/21 0814 donepezil (ARICEPT) tablet 5 mg 5 mg Oral Nightly Oriana Cho, DO 5 mg at 04/06/212048 pantoprazole (PROTONIX) tablet 40 mg 40 mg Oral QAM AC Oriana Cho, DO 40 mg at 04/07/21 0921 gabapentin (NEURONTIN) capsule 100 mg 100 mg Oral BID Oriana Cho, DO 100 mg at 04/07/21 0817 insulin lispro (HUMALOG) injection vial 0-6 Units 0-6 Units SubCUTAneous TID WC Oriana Cho, DO 1 Units at 04/07/21 0818 mineral oil-hydrophilic petrolatum (AQUAPHOR) ointment Topical BID Oriana Cho, DO Given at 04/07/21 0900 polyethylene glycol (GLYCOLAX) packet 17 g 17 g Per G Tube Daily PRN Oriana Cho, DO heparin (porcine) injection 5,000 Units 5,000 Units SubCUTAneous 3 times per day Leonel Sood MD 5,000 Units at 04/06/21 2150 ipratropium-albuterol (DUONEB) nebulizer solution 1 ampule 1 ampule Inhalation Q4H PRN Leonel Sood MD sodium chloride flush 0.9 % injection 10 mL 10 mL IntraCATHeter Q12H Leonel Sood MD 10 mL at 04/06/21 1505 heparin flush 100 UNIT/ML injection 250 Units 250 Units IntraCATHeter Q12H Leonel Sood MD 250 Units at 04/06/21 1505 sodium chloride flush 0.9 % injection 10 mL 10 mL IntraCATHeter PRN Leonel Sood MD heparin flush 100 UNIT/ML injection 250 Units 250 Units IntraCATHeter PRN Leonel Sood MD 250 Units at 04/01/21 1736 miconazole (MICOTIN) 2 % powder Topical BID Leonel Sood MD Given at 04/07/21 0815 stomahesive in petrolatum (ET MIX) Topical PRN Leonel Sood MD stomahesive in petrolatum (ET MIX) Topical BID Leonel Sood MD Given at 04/07/21 0814 sodium chloride flush 0.9 % injection 5-40 mL 5-40 mL IntraVENous 2 times per day Leonel Sood MD 10 mL at 04/07/21 0815 sodium chloride flush 0.9 % injection 5-40 mL 5-40 mL IntraVENous PRN Leonel Sood MD 0.9 % sodium chloride infusion 25 mL IntraVENous PRN Leonel Sood MD ondansetron (ZOFRAN-ODT) disintegrating tablet 4 mg 4 mg Oral Q8H PRN Leonel Sood MD Or ondansetron (ZOFRAN) injection 4 mg 4 mg IntraVENous Q6H PRN Leonel Sood MD glucose (GLUTOSE) 40 % oral gel 15 g 15 g Oral PRN Leonel Sood MD dextrose 50 % IV solution 12.5 g IntraVENous PRN Leonel Sood MD glucagon (rDNA) injection 1 mg 1 mg IntraMUSCular PRN Leonel Sood MD dextrose 5 % solution 100 mL/hr IntraVENous PRN Leonel Sood MD sodium chloride dextrose Data/ Recent Labs 04/05/2122304/06/21 0307 04/07/21 0640 WBC 3.9 4.0 3.7 HGB 8.2* 7.9* 8.7* HCT 26.0* 25.1* 27.2* MCV 88.1 87.6 87.3 PLT 209 200 206 Recent Labs 04/05/2122304/06/21 0307 04/07/21 0640 NA 137 136 139 K 4.0 3.7 4.0 CL 101 102 102 CO2 29 27 30 GLUCOSE 210* 224* 205* PHOS 3.3 3.4 3.2 BUN 16 18 14 CREATININE 1.56* 1.72* 1.40* Assessment/Plan: Salazar Coyle 70 y.o. year old female who we are seeing in consultation for WHITLEY. 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 - now w/ TDC #HTN - BP stable # Metabolic Encephalopathy suspected from gabapentin/baclofen - Pt with dementia at baseline - Noted on baclofen and gabapentin # Acute on Chronic Resp Acidosis from PHOEBE - Per primary - extubated 03/20 # Acute on Chronic Bilateral lower ext Cellulitis - Off abx - Noted multi gaby on wound culture # Anemia - Hgb stable #DM2 -defer to Primary Noted placement issues ongoing [facility] Images from the original note were not included. Med Team Progress Note Salazar Coyle : 1950(70 y.o.) Date: April 07, 2021 Med Team: eMlissa Attending: Dr. Sanchez Chief Complaint: R chronic foot wound, AMS Subjective: Admitted 03/09/21 for RT wound. Yesterday plan awaiting placement and titrating insulin. - No acute events overnight. - Currently, patient is resting in bed. She does not endorse any chest pain, SOB (breathing room air comfortably). She does have some left leg pain notes started today in the lower calf around her wounds. Plan today is further discussion for placement given significant medical problems. Review of Systems Constitutional: Negative for chills, diaphoresis, fatigue and fever. HENT: Negative for congestion, postnasal drip and sinus pain. Respiratory: Negative for cough, chest tightness, shortness of breath and wheezing. Cardiovascular: Negative for chest pain, palpitations and leg swelling. Gastrointestinal: Negative for abdominal distention, abdominal pain, constipation, diarrhea and nausea. Genitourinary: Negative for flank pain. Musculoskeletal: Negative for arthralgias and back pain. Left leg pain Neurological: Positive for weakness. Negative for dizziness. Psychiatric/Behavioral: Negative for agitation and behavioral problems. Scheduled Meds: insulin lispro 3 Units SubCUTAneous TID WC insulin glargine 15 Units SubCUTAneous Nightly sennosides-docusate sodium 2 tablet Oral Daily [START ON 04/08/2021] collagenase Topical Q MWF Baclofen 5 mg Oral BID melatonin 3 mg Oral Nightly acetaminophen 975 mg Oral TID aspirin 81 mg Oral Daily atorvastatin 20 mg Oral Daily calcium-cholecalciferol 1 tablet Oral Daily donepezil 5 mg Oral Nightly pantoprazole 40 mg Oral QAM AC gabapentin 100 mg Oral BID insulin lispro 0-6 Units SubCUTAneous TID WC mineral oil-hydrophilic petrolatum Topical BID heparin (porcine) 5,000 Units SubCUTAneous 3 times per day sodium chloride flush 10 mL IntraCATHeter Q12H heparin flush 250 Units IntraCATHeter Q12H miconazole Topical BID stomahesive in petrolatum Topical BID sodium chloride flush 5-40 mL IntraVENous 2 times per day Continuous Infusions: sodium chloride dextrose Objective: BP (!) 163/84 Pulse 70 Temp 97.1 F (36.2 C) (Temporal) Resp 16 Ht 5' 2" (1.575 m) Wt (!) 392 lb 13.8 oz (178.2 kg) SpO2 93% BMI 71.86 kg/m Physical Exam Constitutional: General: She is not in acute distress. Appearance: Normal appearance. She is obese. She is not diaphoretic. HENT: Head: Normocephalic and atraumatic. Right Ear: External ear normal. Left Ear: External ear normal. Nose: Nose normal. Mouth/Throat: Mouth: Mucous membranes are moist. Pharynx: Oropharynx is clear. Eyes: General: No scleral icterus. Conjunctiva/sclera: Conjunctivae normal. Pupils: Pupils are equal, round, and reactive to light. Cardiovascular: Rate and Rhythm: Normal rate and regular rhythm. Heart sounds: No murmur heard. No friction rub. No gallop. Pulmonary: Effort: Pulmonary effort is normal. No respiratory distress. Breath sounds: Normal breath sounds. No wheezing or rales. Chest: Chest wall: No tenderness. Abdominal: General: Bowel sounds are normal. There is no distension. Palpations: Abdomen is soft. There is no mass. Tenderness: There is no abdominal tenderness. There is no guarding. Musculoskeletal: General: Swelling, tenderness (left lower calf upon palpation), deformity and signs of injury present. Normal range of motion. Cervical back: Normal range of motion and neck supple. No rigidity. Right lower leg: Edema present. Left lower leg: Edema present. Comments: Chronic wound changes with bandages, lower extremity Lymphadenopathy: Cervical: No cervical adenopathy. Skin: General: Skin is warm and dry. Findings: No erythema or rash. Comments: HD catheter right side Neurological: Mental Status: She is alert and oriented to person, place, and time. Sensory: No sensory deficit. Motor: Weakness present. Coordination: Coordination normal. Psychiatric: Mood and Affect: Mood normal. Behavior: Behavior normal. [facility] within last 24 hours Lab Results Component Value Date/Time WBC 3.7 04/07/2021 06:40 AM Hemoglobin 8.7 (L) 04/07/2021 06:40 AM Hematocrit 27.2 (L) 04/07/2021 06:40 AM Platelets 206 04/07/2021 06:40 AM MCV 87.3 04/07/2021 06:40 AM Lab Results Component Value Date/Time Sodium 139 04/07/2021 06:40 AM Potassium 4.0 04/07/2021 06:40 AM Chloride 102 04/07/2021 06:40 AM CO2 30 04/07/2021 06:40 AM BUN 14 04/07/2021 06:40 AM CREATININE 1.40 (H) 04/07/2021 06:40 AM Glucose 205 (H) 04/07/2021 06:40 AM Calcium 9.0 04/07/2021 06:40 AM Phosphorus 3.2 04/07/2021 06:40 AM Assessment and Plan: Acute Metabolic, Hypercapnic Encephalopathy (Resolved)/Delirium (Delirium)/Hx of COPD - SW/TCC to finalize disposition for patient - No beds at [facility], will update Sunday - If no HD needed, can go to [place] [facility] With ATN on HD MWF - Nephrology consulted - initiate 24 hr albino vidhi to assess for recovery - hold off further HD now trend Crea & UO for recovery - 1.4 Cr downtrending Acute on Chronic R foot Wound with Positive Providencia Stuartii, Pseudomonas, and MRSA/ Chronic Lymphedema Chronic pain - Wound care managing dressing changes. - Low dose ativan PRN for dressing changes - oxycodone & gabapentin - sennakot-S HTN 134/86 - Consider PRN hydralazine if hypertensive Type II DM with Hyperglycemia / Dysphagia - Increase Lantus to 15 U nightly - Humalog 3 U TID - Continue low dose sliding scale Hx of Dementia - Donepezil 5mg nightly - Baclofen BID - Delirium precautions Morbid Obesity / HLD - Will need outpatient evaluation for obesity - Atorvastatin 20mg daily Paroxysmal Afib - Continue ASA - Goals of Care: FULL CODE - DVT Prophylaxis: HSQ q8h - GI Prophylaxis: Protonix daily - Diet: Dysphagia - soft and bite sized 5 carb control Associated attestation - Jet Sanchez MD - 04/07/2021 3:59 PM EST I saw and evaluated the patient. I agree with the findings and plan of care as documented in the resident's note, except as noted in Green text. Patient seen and examined personally at 0943 (Date of Service: 04/07/21) Arias Changes to Care Plan: - awaiting placement. - Cr improving. Hoping for recovery. Nephrology checking labs. I spent over 51% total time of 17 minutes counseling (or coordinating care). Discussed current plan of care with patient. Coordinated care with resident team. Images from the original note were not included. Med Team Progress Note Salazar Coyle : 1950(70 y.o.) Date: April 06, 2021 Med Team: Alvaro Attending: Dr. Jet Sanchez Chief Complaint: R Chronic Foot wound; AMS Subjective: Patient doing well. No acute issues. Largest concern right now is wanting to confirm disposition. Patient acknowledges why she cannot go to [facility] anymore. On further evaluation, the patient illustrates that she cannot sit up herself largely due to pain attributed to her legs. Prior to her leg wounds, she could not sit up due to her obesity. Review of Systems Constitutional: Negative for activity change, appetite change, chills, diaphoresis, fatigue, fever and unexpected weight change. HENT: Negative for congestion and sore throat. Eyes: Negative for photophobia and visual disturbance. Respiratory: Negative for apnea, cough, choking, chest tightness, shortness of breath, wheezing and stridor. Cardiovascular: Negative for chest pain, palpitations and leg swelling. Gastrointestinal: Negative for abdominal distention, abdominal pain, constipation, diarrhea, nausea and vomiting. Genitourinary: Negative for difficulty urinating, flank pain, frequency, hematuria, pelvic pain and urgency. Musculoskeletal: Positive for arthralgias, back pain, gait problem, joint swelling and myalgias. Negative for neck pain and neck stiffness. Skin: Positive for rash and wound. Negative for color change and pallor. Neurological: Positive for weakness. Negative for dizziness, light-headedness, numbness and headaches. Scheduled Meds: insulin lispro 3 Units SubCUTAneous TID WC insulin glargine 15 Units SubCUTAneous Nightly [START ON 04/08/2021] collagenase Topical Q MWF Baclofen 5 mg Oral BID melatonin 3 mg Oral Nightly acetaminophen 975 mg Oral TID aspirin 81 mg Oral Daily atorvastatin 20 mg Oral Daily calcium-cholecalciferol 1 tablet Oral Daily docusate sodium 100 mg Oral BID donepezil 5 mg Oral Nightly pantoprazole 40 mg Oral QAM AC gabapentin 100 mg Oral BID insulin lispro 0-6 Units SubCUTAneous TID WC mineral oil-hydrophilic petrolatum Topical BID heparin (porcine) 5,000 Units SubCUTAneous 3 times per day sodium chloride flush 10 mL IntraCATHeter Q12H heparin flush 250 Units IntraCATHeter Q12H miconazole Topical BID stomahesive in petrolatum Topical BID sodium chloride flush 5-40 mL IntraVENous 2 times per day Continuous Infusions: sodium chloride dextrose PRN meds used in last 24hrs: oxycodone. Objective: BP (!) 146/72 Pulse 75 Temp 98.6 F (37 C) (Temporal) Resp 20 Ht 5' 2" (1.575 m) Wt (!) 392 lb 13.8 oz (178.2 kg) SpO2 92% BMI 71.86 kg/m Physical Exam Constitutional: General: She is not in acute distress. Appearance: Normal appearance. She is obese. She is not ill-appearing, toxic-appearing or diaphoretic. HENT: Head: Normocephalic and atraumatic. Right Ear: External ear normal. Left Ear: External ear normal. Nose: Nose normal. No congestion or rhinorrhea. Mouth/Throat: Mouth: Mucous membranes are moist. Pharynx: Oropharynx is clear. No oropharyngeal exudate or posterior oropharyngeal erythema. Eyes: General: No scleral icterus. Right eye: No discharge. Left eye: No discharge. Extraocular Movements: Extraocular movements intact. Conjunctiva/sclera: Conjunctivae normal. Pupils: Pupils are equal, round, and reactive to light. Cardiovascular: Rate and Rhythm: Normal rate and regular rhythm. Pulses: Normal pulses. Heart sounds: Normal heart sounds. No murmur heard. No friction rub. No gallop. Comments: Heart sounds distant. Right Tunneled Dialysis catheter in place Pulmonary: Effort: Pulmonary effort is normal. No respiratory distress. Breath sounds: Normal breath sounds. No stridor. No wheezing, rhonchi or rales. Comments: Decreased lung sounds at bases. Chest: Chest wall: No tenderness. Abdominal: General: Abdomen is flat. There is no distension. Palpations: Abdomen is soft. Tenderness: There is no abdominal tenderness. Musculoskeletal: General: Swelling, tenderness, deformity and signs of injury present. Cervical back: Normal range of motion and neck supple. No rigidity or tenderness. Right lower leg: Edema present. Left lower leg: Edema present. Comments: ROM limited due to pain Skin: Coloration: Skin is not jaundiced or pale. Findings: Erythema, lesion and rash present. No bruising. Neurological: General: No focal deficit present. Mental Status: She is alert and oriented to person, place, and time. Mental status is at baseline. Cranial Nerves: No cranial nerve deficit. Sensory: No sensory deficit. Motor: Weakness present. [facility] within last 24 hours Lab Results Component Value Date/Time WBC 4.0 04/06/2021 03:07 AM Hemoglobin 7.9 (L) 04/06/2021 03:07 AM Hematocrit 25.1 (L) 04/06/2021 03:07 AM Platelets 200 04/06/2021 03:07 AM MCV 87.6 04/06/2021 03:07 AM Lab Results Component Value Date/Time Sodium 136 04/06/2021 03:07 AM Potassium 3.7 04/06/2021 03:07 AM Chloride 102 04/06/2021 03:07 AM CO2 27 04/06/2021 03:07 AM BUN 18 04/06/2021 03:07 AM CREATININE 1.72 (H) 04/06/2021 03:07 AM Glucose 224 (H) 04/06/2021 03:07 AM Calcium 8.8 04/06/2021 03:07 AM Phosphorus 3.4 04/06/2021 03:07 AM Assessment and Plan: Acute Metabolic, Hypercapnic Encephalopathy (Resolved)/Delirium (Delirium)/Hx of COPD Assessment: - Resolved. Awaiting placement still. Plan: - SW/TCC to finalize disposition for patient - Continue delirium protocols - Obtain one time repeat CXR [facility] With ATN on HD MWF Assessment: - Dialysis MWF per nephrology Plan: - Management of HTN per below - Continue dialysis MWF Acute on Chronic R foot Wound with Positive Providencia Stuartii, Pseudomonas, and MRSA/ Chronic Lymphedema Assessment: - Wound care managing dressing changes. Plan: - Continue low dose ativan PRN for dressing changes - Continue oxycodone regimen and gabapentin regimen - Change bowel regimen to sennakot-S HTN Assessment: - BP normotensive with some hypertensive episodes Plan: - Can consider restarting midodrine if persistently hypotensive - PRN hydralazine if hypertensive Type II DM with Hyperglycemia / Dysphagia Assessment: - Glucose points slightly elevated on fasting AM as well as overnight Plan: - Increase Lantus to 15 U nightly - Humalog 3 U TID - Continue low dose sliding scale Hx of Dementia Assessment: - Mentation stable Plan: - Continue donepezil 5mg nightly - Continue baclofen BID - Delirium precautions Chronic Pain Assessment: - In persistent MSK based pain - Tolerating Oxycodone and gabapentin well - Has intolerations to wound changes. Needing ativan to help assist with wound dressing. Plan: - Continue low dose ativan PRN for dressing changes - Continue oxycodone regimen and gabapentin regimen - Bowel regimen with sennakot-S Morbid Obesity / HLD Assessment: - BMI = 73.47 Plan: - Will need outpatient evaluation for obesity - Continue Atorvastatin 20mg daily Paroxysmal Afib Assessment: - Stable Plan: - Continue ASA - Goals of Care: FULL CODE - DVT Prophylaxis: HSQ q8h - GI Prophylaxis: Protonix daily - Diet: Dysphagia - soft and bite sized 5 carb control Associated attestation - Jet Sanchez MD - 04/06/2021 6:19 PM EST I saw and evaluated the patient. I agree with the findings and plan of care as documented in the resident's note, except as noted in Green text. Patient seen and examined personally at 1309 (Date of Service: 04/06/21) Arias Changes to Care Plan: - awaiting placement. - titrate insulin. I spent over 51% total time of 16 minutes counseling (or coordinating care). Discussed current plan of care with patient. Coordinated care with resident team. Images from the original note were not included. [facility] Wound Care follow up Note Salazar Coyle AGE: 70 y.o. GENDER: female : 1950 Subjective: HISTORY of PRESENT ILLNESS HPI Salazar Coyle is a 70 y.o. female who presents for a wound care follow up. History of Wound Context: s/p right foot I&D w vac application on 03/15 Wound vac intact. No leaks or drainage in canister. NPWT scheduled to be changed yesterday 04/05/2021. PAST MEDICAL HISTORY Diagnosis Date A-fib (HCC) Anemia Diabetes (HCC) Lymphedema Obesity PAST SURGICAL HISTORY History reviewed. No pertinent surgical history. FAMILY HISTORY History reviewed. No pertinent family history. SOCIAL HISTORY Social History Tobacco Use Smoking status: Not on file Smokeless tobacco: Not on file Substance Use Topics Alcohol use: Not on file Drug use: Not on file ALLERGIES No Known Allergies MEDICATIONS No current facility-administered medications on file prior to encounter. Current Outpatient Medications on File Prior to Encounter Medication Sig Dispense Refill acetaminophen (TYLENOL) 325 MG tablet Take 975 mg by mouth 3 times daily Ascorbic Acid (VITAMIN C) 250 MG tablet Take 500 mg by mouth daily aspirin 81 MG chewable tablet Take 81 mg by mouth daily atorvastatin (LIPITOR) 20 MG tablet Take 20 mg by mouth daily baclofen (LIORESAL) 20 MG tablet Take 20 mg by mouth 3 times daily bumetanide (BUMEX) 0.5 MG tablet Take 0.5 mg by mouth 2 times daily calcium-vitamin D (OSCAL-500) 500-200 MG-UNIT per tablet Take 1 tablet by mouth daily docusate sodium (COLACE) 100 MG capsule Take 100 mg by mouth 2 times daily donepezil (ARICEPT) 5 MG tablet Take 5 mg by mouth nightly enoxaparin (LOVENOX) 60 MG/0.6ML injection Inject into the skin 2 times daily gabapentin (NEURONTIN) 300 MG capsule Take 300 mg by mouth 2 times daily. insulin lispro (HUMALOG) 100 UNIT/ML injection vial Inject 3 Units into the skin 3 times daily (before meals) magnesium oxide (MAG-OX) 400 MG tablet Take 400 mg by mouth daily oxyCODONE 5 MG capsule Take 5 mg by mouth every 6 hours as needed for Pain. piperacillin-tazobactam (ZOSYN) 3-0.375 GM per 50ML IVPB Infuse 3,375 mg intravenously every 8 hours insulin glargine (LANTUS) 100 UNIT/ML injection vial Inject 35 Units into the skin nightly insulin glargine (LANTUS) 100 UNIT/ML injection vial Inject 55 Units into the skin every morning REVIEW OF SYSTEMS Pertinent items are noted in HPI. Objective: BP (!) 146/72 Pulse 75 Temp 98.6 F (37 C) (Temporal) Resp 20 Ht 5' 2" (1.575 m) Wt (!) 392 lb 13.8 oz (178.2 kg) SpO2 92% BMI 71.86 kg/m PHYSICAL EXAM General Appearance: alert and oriented to person, place and time, well-developed and well-nourished, in no acute distress Right lateral foot: dressing intact Right heel: dressing intact Left foot: dry scaling and edema noted Left heel: 3x4x0 pink nonblanchable tissue without openings or drainage BLE: weeping small serous fluid. hemosiderin staining noted. Moderate edema. Bilateral buttock and posterior thigh, improving: scattered blanchable pink tissue. Incontinence noted. LABS CBC: Lab Results Component Value Date WBC 4.0 04/06/2021 HGB 7.9 04/06/2021 HCT 25.1 04/06/2021 MCV 87.6 04/06/2021 PLT 200 04/06/2021 BMP: Lab Results Component Value Date NA 136 04/06/2021 K 3.7 04/06/2021 CL 102 04/06/2021 CO2 27 04/06/2021 PHOS 3.4 04/06/2021 BUN 18 04/06/2021 CREATININE 1.72 04/06/2021 PT/INR: Lab Results Component Value Date PROTIME 11.4 03/14/2021 INR 1.1 03/14/2021 Prealbumin: No results found for: PREALBUMIN Albumin: Lab Results Component Value Date LABALBU 3.1 03/26/2021 Sed Rate: Lab Results Component Value Date SEDRATE 62 03/08/2021 Micro: Lab Results Component Value Date BC No growth at 5 days. 03/08/2021 Assessment/Plan: 1. Right foot surgical - continue current treatment 2. Bilateral buttock and posterior thigh MASD d/t incontinence - et mix bid and prn - turn and reposition every 2 hours - bariatric bed 3. Bilateral breast, abdominal fold, bilateral buttock, and posterior thigh fungal dermatitis - cleanse with mild soap and water, allow to dry fully, miconazole powder bid and prn 4. BLE lymphedema - cleanse with NS, maxorb, abd/kerlix daily and prn - elevate above level of heart TID for at least 30 min Nutritional support Follow up with wound care Any questions or concerns please vocera or perfect serve "wound care". Thank you for the consult! I personally obtained the arias and critical portions of the history and physical exam. I reviewed the labs, imaging studies, and electronic medical record. I reviewed the chart documentation and discussed the patient with treatment team members. I have edited the note to reflect my clinical findings and my assessment and plan. Please note, the time of this note does not reflect the time I saw this patient today, but the time of this documentaton. Portions of this note including HPI, ROS, impression/plan, and examination may have been copied forward from admission to today as to provide important historical information essential in contributing to medical decision making. Documentation has been reviewed and edited as necessary to support clinical decision making for today's visit and to reflect my own independent evaluation of this patient. Decision making for today's visit and to reflect my own independent evaluation of this patient. [facility] Nephrology Progress Note Subjective/ Salazar Leonides 70 y.o. year old female who we are seeing in consultation for WHITLEY. All labs / data/ chart and interval events are noted HD today 04/06 BP has been stable Edema is noted AMS waxing and waining Making more UO?? Lytes are as expected No other new issues No change in the PFSH at this time Complete ROS otherwise negative Objective/ Vitals: 04/06/21 1115 04/06/21 1130 04/06/21 1137 04/06/21 1142 BP: (!) 150/71 (!) 163/66 (!) 158/73 Pulse: 94 95 66 Resp: 16 Temp: 96.8 F (36 C) TempSrc: SpO2: 95% Weight: Height: 24HR INTAKE/OUTPUT: Intake/Output Summary (Last 24 hours) at 04/06/2021 1144 Last data filed at 04/06/2021 1142 Gross per 24 hour Intake 500 ml Output 3500 ml Net -3000 ml General Appearance: NAD, awake, morbidly obese HEENT: NC/AT, kayley JVD d/t body habitus Lungs: Distant , CTA bilaterally, no wheeze, rales or rhonchi, good air entry, good respiratory effort Heart: Heart sounds are regular, No murmur, gallop or rub appreciated Abdomen: +BS, soft, nttp, nd, +abdominal wall edema Extremities: +2 upper and lower bilateral ext edema. Difficult to determine if just obesity vs third spacing. Neurologic: no asterixis, moving all ext Affect: confused Access: RIJ TDC, normal exam Current Facility-Administered Medications Medication Dose Route Frequency Provider Last Rate Last Admin [START ON 04/08/2021] collagenase ointment Topical Q MWF Phillip Victor MD oxyCODONE (ROXICODONE) immediate release tablet 5 mg 5 mg Oral Q6H PRN Zhao Willis MD 5 mg at 04/05/212148 insulin glargine (LANTUS) injection vial 14 Units 14 Units SubCUTAneous Nightly Kodak Dove MD 14 Units at 04/05/212153 heparin (porcine) injection 2,100 Units 2,100 Units IntraCATHeter PRN Reynold Garner MD 2,100 Units at 04/04/21 1200 heparin (porcine) injection 2,200 Units 2,200 Units IntraCATHeter PRN Reynold Garner MD 2,200 Units at 04/04/21 1200 baclofen (LIORESAL) tablet 5 mg 5 mg Oral BID Juan Moizdelar, DO 5 mg at 04/06/21 0823 melatonin tablet 3 mg 3 mg Oral Nightly Keon Young MD 3 mg at 04/05/21 214 acetaminophen (TYLENOL) tablet 975 mg 975 mg Oral TID Oriana Cho, DO 975 mg at 04/06/21 0823 aspirin chewable tablet 81 mg 81 mg Oral Daily Oriana Cho, DO 81 mg at 04/06/21 0824 atorvastatin (LIPITOR) tablet 20 mg 20 mg Oral Daily Oriana Cho, DO 20 mg at 04/06/21 0824 calcium-cholecalciferol 500-200 MG-UNIT per tablet 1 tablet 1 tablet Oral Daily Oriana Cho, DO 1 tablet at 04/06/21 0824 docusate sodium (COLACE) capsule 100 mg 100 mg Oral BID Oriana Cho, DO 100 mg at 04/06/21 0823 donepezil (ARICEPT) tablet 5 mg 5 mg Oral Nightly Oriana Cho, DO 5 mg at 04/05/21 2153 pantoprazole (PROTONIX) tablet 40 mg 40 mg Oral QAM AC Oriana Cho, DO 40 mg at 04/06/21 0522 gabapentin (NEURONTIN) capsule 100 mg 100 mg Oral BID Oriana Cho, DO 100 mg at 04/06/21 0824 insulin lispro (HUMALOG) injection vial 0-6 Units 0-6 Units SubCUTAneous TID WC Oriana Cho, DO 2 Units at 04/06/21 0812 mineral oil-hydrophilic petrolatum (AQUAPHOR) ointment Topical BID Oriana Cho, DO Given at 04/06/21 0816 polyethylene glycol (GLYCOLAX) packet 17 g 17 g Per G Tube Daily PRN Oriana Cho, DO heparin (porcine) injection 5,000 Units 5,000 Units SubCUTAneous 3 times per day Leonel Sood MD 5,000 Units at 04/06/21 0521 ipratropium-albuterol (DUONEB) nebulizer solution 1 ampule 1 ampule Inhalation Q4H PRN Leonel Sood MD sodium chloride flush 0.9 % injection 10 mL 10 mL IntraCATHeter Q12H Leonel Sood MD 10 mL at 04/06/21 0314 heparin flush 100 UNIT/ML injection 250 Units 250 Units IntraCATHeter Q12H Leonel Sood MD 250 Units at 04/06/21 0314 sodium chloride flush 0.9 % injection 10 mL 10 mL IntraCATHeter PRN Leonel Sood MD heparin flush 100 UNIT/ML injection 250 Units 250 Units IntraCATHeter PRN Leonel Sood MD 250 Units at 04/01/21 1736 miconazole (MICOTIN) 2 % powder Topical BID Leonel Sood MD Given at 04/06/21 0818 stomahesive in petrolatum (ET MIX) Topical PRN Leonel Sood MD stomahesive in petrolatum (ET MIX) Topical BID Leonel Sood MD Given at 04/06/21 0814 sodium chloride flush 0.9 % injection 5-40 mL 5-40 mL IntraVENous 2 times per day Leonel Sood MD 10 mL at 04/06/21 0817 sodium chloride flush 0.9 % injection 5-40 mL 5-40 mL IntraVENous PRN Leonel Sood MD 0.9 % sodium chloride infusion 25 mL IntraVENous PRN Leonel Sood MD ondansetron (ZOFRAN-ODT) disintegrating tablet 4 mg 4 mg Oral Q8H PRN Leonel Sood MD Or ondansetron (ZOFRAN) injection 4 mg 4 mg IntraVENous Q6H PRN Leonel Sood MD glucose (GLUTOSE) 40 % oral gel 15 g 15 g Oral PRN Leonel Sood MD dextrose 50 % IV solution 12.5 g IntraVENous PRN Leonel Sood MD glucagon (rDNA) injection 1 mg 1 mg IntraMUSCular PRN Leonel Sood MD dextrose 5 % solution 100 mL/hr IntraVENous PRN Leonel Sood MD sodium chloride dextrose Data/ Recent Labs 04/04/21 0010 04/05/21 0224 04/06/21 0307 WBC 3.9 3.9 4.0 HGB 8.4* 8.2* 7.9* HCT 26.7* 26.0* 25.1* MCV 87.5 88.1 87.6 PLT 237 209 200 Recent Labs 04/04/21 0010 04/05/21 0224 04/06/21 0307 NA 139 137 136 K 3.9 4.0 3.7 CL 102 101 102 CO2 29 29 27 GLUCOSE 229* 210* 224* PHOS 3.8 3.3 3.4 BUN 23* 16 18 CREATININE 2.11* 1.56* 1.72* Assessment/Plan: Salazar Coyle 70 y.o. year old female who we are seeing in consultation for WHILTEY. # WHITLEY/ATN from Normotensive ATN (hypovolemia) on MH TEACHER since 03/17/2021 - Scr as expected, uop picking up??, monitor, BP stable - originally was iHD per MW schedule - Last HD 04/06 today - will initiate 24 hr urine albino vidhi to assess for recovery Will HOLD off further iHD for now and trend crea and UO for recovery - Continue to hold acei and diuretics. - now w/ TDC #HTN - BP stable # Metabolic Encephalopathy suspected from gabapentin/baclofen - Pt with dementia at baseline - Noted on baclofen and gabapentin # Acute on Chronic Resp Acidosis from PHOEBE - Per primary - extubated 03/20 # Acute on Chronic Bilateral lower ext Cellulitis - Off abx - Noted multi gaby on wound culture # Anemia - Hgb stable #DM2 -defer to Primary Noted placement issues ongoing [facility] Patient Name: Salazar Coyle Patient : 1950 Acct: [id number] Date of Admission: 03/08/2021 Room/Bed: 1640/676219 Code Status: Full Code Allergies: No Known Allergies Diagnosis: Patient Active Problem List Diagnosis Foot ulcer (HCC) Wounds, multiple Type 2 diabetes mellitus with hyperglycemia (HCC) Cerebrovascular accident (HCC) Recurrent UTI PAF (paroxysmal atrial fibrillation) (HCC) Osteoarthrosis Hypertension Hyperlipemia Degenerative disc disease, cervical Chronic pain Bladder spasm Subacute osteomyelitis of right foot (HCC) Palliative care encounter 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) Morbid obesity with BMI of 60.0-69.9, adult (HCC) Cognitive decline Encephalopathy acute WHITLEY (acute kidney injury) (HCC) Acute respiratory failure (HCC) Acute on chronic respiratory failure with hypercapnia (HCC) Edema Treatment: Hemodilaysis 2:1 Priority: Routine Location: Acute Room Diabetic: Yes NPO: No Isolation Precautions: Dialysis Consent for Treatment Verified: Yes Blood Consent Verified: Not Applicable Safety Verified: Identify (I), Consent (C), Equipment (E), HepB Status (B), Orders Complete (O), Access Verified (A) and Timeliness (T) Time out performed prior to access at 0835 hours. Report Received from Primary RN at 0730 hours. Primary RN (First Initial, Last Name, Title): Natacha Layton RN Incapacitated Nurse Education Completed: Not Applicable HBsAg ONLY: Date Drawn: March 17, 2021 Results: Negative HBsAb: Date Drawn: March 17, 2021 Results: Susceptible <10 Order Dialysis Bath K+ (Potassium): 3 Ca+ (Calcium): 2.5 Na+ (Sodium): 137 HCO3 (Bicarb): 35 Na+ Modeling: Not Applicable Dialyzer: [id number] Dialysate Temperature (C): 36 Blood Flow Rate (BFR): 400 Dialysate Flow Rate (DFR): 600 Access to be Utilized Access: Tunneled Catheter Location: Internal Jugular Side: Right Needle gauge: Not Applicable + Bruit/Thrill: Not Applicable First Use X-ray Verified: Yes OK to use line order: Yes Site Assessment: Signs and Symptoms of Infection/Inflammation: None If yes: Not Applicable Dressing: Dry and Intact Site Prep: Medical Aseptic Technique Dressing Changed this Treatment: No If yes, by whom: NA - not changed today Date of Last Dressing Change: 04/04/[address]?: Yes Red Alcohol Caps in place?: Yes Gauze Dressing?: No Non Dialysis Use?: No Comment: Flows: Good, Patent If access problem, who was notified: Pre and Post-Assessment Patient Vitals for the past 8 hrs: Level of Consciousness Oriented X Heart Rhythm Respiratory Quality/Effort O2 Device Bilateral Breath Sounds Skin Color Skin Condition/Temp Abdomen Inspection Bowel Sounds (All Quadrants) Edema Edema Generalized RUE Edema LUE Edema RLE Edema LLE Edema Pain Level 04/06/21 0823 10 04/06/21 0828 None (Room air) 04/06/21 0837 Alert (0) 3 Regular Unlabored None (Room air) Clear Appropriate for ethnicity Dry;Swollen;Warm Soft Active Generalized +2;Pitting 04/06/21 1009 Alert (0) Unlabored Appropriate for ethnicity Swollen;Dry Soft Generalized +2 Non-pitting Non-pitting +2 +2 04/06/21 1021 10 04/06/21 1142 Clear Generalized +2 04/06/21 1155 None (Room air) Labs Recent Labs 04/04/21 0010 04/05/21 0224 04/06/21 0307 WBC 3.9 3.9 4.0 HGB 8.4* 8.2* 7.9* HCT 26.7* 26.0* 25.1* PLT 237 209 200 Recent Labs 04/04/21 0010 04/05/21 0224 04/06/21 0307 NA 139 137 136 K 3.9 4.0 3.7 CL 102 101 102 CO2 29 29 27 BUN 23* 16 18 CREATININE 2.11* 1.56* 1.72* GLUCOSE 229* 210* 224* IV Drips and Rate/Dose sodium chloride dextrose Safety - Before each treatment: Dialysis Machine No.: [id number] RO Machine No.: [id number] Dialyzer Lot No.: [id number] RO Machine Log Sheet Completed: Yes Machine Alarm Self Test: Completed;Passed (04/06/21 08) Machine Autotest: Completed,Passed Air Foam Detector: Tested,Proper Function,pH Reading Extracorporeal Circuit Tested for Integrity: Yes Machine Conductivity: 13.8 Manual Conductivity: 13.6 Machine Ph: 7 Bicarbonate Concentrate Lot No.: [id number] Acid Concentrate Lot No.: [id number] Manual Ph: 7 Bleach Test (Neg): Yes Bath Temperature: 96.8 F (36 C) Tubing Lot#: [id number] Conductivity Meter Serial #: [id number] All Connections Secure?: Yes Venous Parameters Set?: Yes Arterial Parameters Set?: Yes Saline Line Double Clamped?: Yes Air Foam Detector Engaged?: Yes Machine Functioning Alarm Free? Yes Prime Given: 200ml Chlorine Testing - Before each treatment and every 4 hours: Treatment Treatment Number: 3 Time On: 08 Time Off: 1137 Treatment Goal: 3-4L Weight: (!) 392 lb 13.8 oz (178.2 kg) (04/05/21 0600) 1st check: less than 0.1 ppm at: 0545 hours 2nd check: less than 0.1 ppm at: 0845 hours 3rd check: Not Applicable (if greater than 0.1 ppm, then check every 30 minutes from secondary) Access Flows and Pressures Patient Vitals for the past 8 hrs: Blood Flow Rate (ml/min) Ultrafiltration Rate (ml/hr) Ultrafiltration Total Arterial Pressure (mmHg) Venous Pressure (mmHg) TMP Hemodialysis Conductivity DFR Comments Access Visible 04/06/21 0837 200 ml/min 1170 ml/hr -20 mmHg 20 90 13.6 600 tx intiated Yes 04/06/21 0839 400 ml/min 1170 ml/hr 30 ml -70 mmHg 80 90 600 bfr increased Yes 04/06/21 0845 400 ml/min 1170 ml/hr 225 ml -70 mmHg 80 90 600 pt resting Yes 04/06/21 0900 400 ml/min 1170 ml/hr 150 ml -90 mmHg 90 80 600 pt resting Yes 04/06/21 0915 400 ml/min 1170 ml/hr 800 ml -100 mmHg 120 90 600 pt resting Yes 04/06/21 0930 400 ml/min 1170 ml/hr 1070 ml -100 mmHg 120 90 600 pt resting Yes 04/06/21 0945 400 ml/min 1170 ml/hr 1455 ml -100 mmHg 120 90 600 stable Yes 04/06/21 1015 400 ml/min 1170 ml/hr 1935 ml -100 mmHg 120 90 600 stable Yes 04/06/21 1030 400 ml/min 1170 ml/hr 2180 ml -100 mmHg 120 90 600 stable Yes 04/06/21 1045 400 ml/min 1170 ml/hr 2545 ml -100 mmHg 120 90 600 pt resting Yes 04/06/21 1115 400 ml/min 1170 ml/hr 3045 ml -100 mmHg 120 90 600 pt resting Yes 04/06/21 1130 400 ml/min 1170 ml/hr 3470 ml -100 mmHg 120 90 600 stable Yes 04/06/21 1137 3500 ml tx complete Yes Vital Signs Patient Vitals for the past 8 hrs: BP Temp Pulse Resp SpO2 04/06/21 0828 110/69 98.9 F (37.2 C) 79 16 94 % 04/06/21 0836 133/60 98.7 F (37.1 C) 79 95 % 04/06/21 0837 (!) 130/54 78 04/06/21 0839 (!) 152/62 75 04/06/21 0845 (!) 146/64 72 04/06/21 0900 (!) 130/59 64 04/06/21 0915 122/74 99 04/06/21 0930 (!) 146/63 55 04/06/21 0945 (!) 163/64 66 04/06/21 1015 (!) 144/119 108 04/06/21 1030 (!) 153/78 66 04/06/21 1045 (!) 150/81 72 04/06/21 1115 (!) 150/71 94 04/06/21 1130 (!) 163/66 95 04/06/21 1137 (!) 158/73 66 04/06/21 1142 96.8 F (36 C) 16 95 % 04/06/21 1155 (!) 146/72 98.6 F (37 C) 75 20 92 % Post-Dialysis Arterial Catheter Locking Solution: Heparin (1000units:1ml) Volume (ml): 2.1 Venous Catheter Locking Solution: Heparin (1000units:1ml) Volume (ml): 2.1 Post-Treatment Procedures: Blood returned,Catheter capped, clamped and heparinized x 2 ports Machine Disinfection Process: Exterior Machine Disinfection Rinseback Volume (ml): 300 ml Total Liters Processed (l/min): 69.9 l/min Dialyzer Clearance: Clear Duration of Treatment (minutes): 180 minutes Hemodialysis Intake (ml): 500 ml Hemodialysis Output (ml): 3500 ml NET Removed (ml): 3000 ml Tolerated Treatment: Good Patient Response to Treatment: pt tolerated tx well Physician Notified?: No Provider Notification Provider Notification Reason for Communication: Evaluate;Review case;New orders (03/20/21 1037) Provider Name: Dr Garner (03/20/21 1037) Provider Notification: Physician (03/20/21 1037) Method of Communication: Call (03/20/21 1037) Response: Other (Comment) (stop tx d/t cvc not working) (03/20/21 1037) Notification Time: 1037 (03/20/21 1037) Handoff complete and report given to Primary RN at 1145 hours. Primary RN (First Initial, Last Name, Title): Natacha Layton RN Education Person Educated: Patient Knowledge Base: Substantial Barriers to Learning?: None Preferred method of Learning: Oral Topic(s): Access Care, Signs and Symptoms of Infection and Fluid Management Teaching Tools: Explanation Response to Education: Verbalized Understanding Pillows placed to support patient's shoulders and legs, however patient refuses to be turned on her side d/t chronic pain. Patient is refusing to be turned in bed. She has been educated about the importance of turning. She screams when we attempt to turn her. She is refusing to be turned. Comprehensive Nutrition Assessment Type and Reason for Visit: Reassess Nutrition Recommendations/Plan: 1. Current diet is dysphagia soft and bite sized- RD verbally encouraged protein intake. Per MNT protocol will add CHO Control restriction as patient with elevated BG levels, wounds, and DM. Currently, K+ and Phos WDL with WHITLEY/HD. 2. Per MNT protocol modified ONS- chocolate Ensure HP at dinner (8 oz provides 160 kcals, 16 gm protein) and Pete at breakfast and lunch (1 pkt provides 90-95 kcals, 14 gm amino acids, 2.5 gm protein). 3. Please record % of meals and oral nutrition supplement consumed in nursing flow sheets. 4. Monitor weight, labs, I/O, skin assessment, and overall nutritional status. RD will follow up. Nutrition Assessment: Patient with WHITLEY/ATN from Normotensive ATN (hypovolemia) on MH TEACHER since 03/17/2021. Acute encephalopathy, likely multifactorial from hypercapnia, toxic/metabolic, and medication induced (suspected from gabapentin/baclofen). Wound care is following. Placement is pending. Patient reports that she is eating well if she is fed by staff. is present and feeding patient her lunch- mashed potatoes, broccoli, and meatloaf. Patient is asking for peanut butter and a biscuit. She is on a dysphagia soft and bite sized diet. LASER PRINTING OPERATOR signed off. Patient states that she drinks Ensure HP occasionally- there are 3 unopened bottles in her room. Patient is willing to drink one per day and try Pete. Malnutrition Assessment: Malnutrition Status: At risk for malnutrition (Comment) Context: Acute Illness Findings of the 6 clinical characteristics of malnutrition: Energy Intake: Mild decrease in energy intake (Comment) (Mentation improved. PO intake variable based on review of nursing flow sheets. Patient states that she eats well if someone feeds her.) Weight Loss: Unable to assess (Patient does not know her UBW. Weights fluctuating this admit which is likely due ot bed scale and fluid status. I/O: -[id number]. Recently 392-414 lbs since last follow up.) Body Fat Loss: Unable to assess Muscle Mass Loss: Unable to assess Fluid Accumulation: 7 - Moderate to Severe Extremities Dry Cleaning Manager Strength: Not Performed Estimated Daily Nutrient Needs: Energy (kcal): 22-25 kcals/kg IBW = 9810-4185 kcals/day; Weight Used for Energy Requirements: [place] Protein (g): 1.2-1.4g = 60-70g protein/day; Weight Used for Protein Requirements: [place] Fluid (ml/day): per MD; Method Used for Fluid Requirements: Other (Comment) Nutrition Related Findings: Alex = 13, abdomen rotund, active bowel sounds, non pitting BUE edema, + 2 BLE edema, 03/31 BM noted. 04/04 HD: 3000 ml. Meds: Lipitor, Lioresal, Calcium Cholcalciferol, Colace, Neurontin, Insulin, Melatonin, Protonix. BMP: Recent Labs 04/03/21 0222 04/04/21 0010 04/05/21 0224 NA 140 139 137 K 3.9 3.9 4.0 CL 104 102 101 CO2 31* 29 29 BUN 21* 23* 16 CREATININE 2.03* 2.11* 1.56* GLUCOSE 207* 229* 210* CALCIUM 9.1 8.9 8.8 PHOS 3.6 3.8 3.3 HEPATIC: No results for input(s): AST, ALT, ALB, BILITOT, ALKPHOS in the last 72 hours. Wounds: Multiple,Stage II,Wound Vac,Deep Tissue Injury Current Nutrition Therapies: ADULT DIET; Dysphagia - Soft and Bite Sized ADULT ORAL NUTRITION SUPPLEMENT; Dinner; Diabetic Oral Supplement ADULT ORAL NUTRITION SUPPLEMENT; Breakfast, Lunch; Wound Healing Oral Supplement Anthropometric Measures: Height: 5' 2" (157.5 cm) Current Body Weight: 392 lb (177.8 kg) (04/05/20) Admission Body Weight: 400 lb (181.4 kg) (initially stated) Usual Body Weight: (No recent weight hx in chart to review, noted pt started on HD this admit) [place] Body Weight: 110 lbs; Nutrition Interventions: Food and/or Nutrient Delivery: Continue Current Diet,Modify Oral Nutrition Supplement Nutrition Education/Counseling: Education not appropriate Coordination of Nutrition Care: Continue to monitor while inpatient Goals: Patient consume > 50% of meals and oral nutrition supplements. Nutrition Monitoring and Evaluation: Behavioral-Environmental Outcomes: None Identified Food/Nutrient Intake Outcomes: Food and Nutrient Intake,Supplement Intake,Vitamin/Mineral Intake Physical Signs/Symptoms Outcomes: Biochemical Data,Chewing or Swallowing,GI Status,Fluid Status or Edema,Meal Time Behavior,Nutrition Focused Physical Findings,Skin,Weight Discharge Planning: Too soon to determine Contact: Pager [phone] [facility] Progress Note Subjective/ Salazar Coyle 70 y.o. year old female who we are seeing in consultation for WHITLEY. All labs / data/ chart and interval events are noted HD yesterday 04/04 BP has been stable Edema is noted AMS waxing and waining Oliguric Lytes are as expected No other new issues No change in the PFSH at this time Complete ROS otherwise negative Objective/ Vitals: 04/04/21 1222 04/04/21 1957 04/05/21 0600 04/05/21 0809 BP: 99/62 (!) 165/68 (!) 147/61 Pulse: 64 80 84 Resp: 18 16 20 Temp: 96.7 F (35.9 C) 98.1 F (36.7 C) 98.7 F (37.1 C) TempSrc: Temporal Temporal Temporal SpO2: 100% 97% 94% Weight: (!) 392 lb 13.8 oz (178.2 kg) Height: 24HR INTAKE/OUTPUT: Intake/Output Summary (Last 24 hours) at 04/05/2021 1239 Last data filed at 04/05/2021 0632 Gross per 24 hour Intake -- Output 600 ml Net -600 ml General Appearance: NAD, awake, morbidly obese HEENT: NC/AT, kayley JVD d/t body habitus Lungs: Distant , CTA bilaterally, no wheeze, rales or rhonchi, good air entry, good respiratory effort Heart: Heart sounds are regular, No murmur, gallop or rub appreciated Abdomen: +BS, soft, nttp, nd, +abdominal wall edema Extremities: +2 upper and lower bilateral ext edema. Difficult to determine if just obesity vs third spacing. Neurologic: no asterixis, moving all ext Affect: confused Access: RIJ TDC, normal exam Current Facility-Administered Medications Medication Dose Route Frequency Provider Last Rate Last Admin [START ON 04/08/2021] collagenase ointment Topical Q MWF Phillip Victor MD oxyCODONE (ROXICODONE) immediate release tablet 5 mg 5 mg Oral Q6H PRN Zhao Willis MD 5 mg at 04/05/21 0758 insulin glargine (LANTUS) injection vial 14 Units 14 Units SubCUTAneous Nightly Kodak Dove MD 14 Units at 04/04/21 213 heparin (porcine) injection 2,100 Units 2,100 Units IntraCATHeter PRN Reynold Garner MD 2,100 Units at 04/04/21 1200 heparin (porcine) injection 2,200 Units 2,200 Units IntraCATHeter PRN Reynold Garner MD 2,200 Units at 04/04/21 1200 baclofen (LIORESAL) tablet 5 mg 5 mg Oral BID Juan Adams, DO 5 mg at 04/05/21 0918 melatonin tablet 3 mg 3 mg Oral Nightly Keon Young MD 3 mg at 04/04/21 213 acetaminophen (TYLENOL) tablet 975 mg 975 mg Oral TID Oriana Cho, DO 975 mg at 04/05/21 1224 aspirin chewable tablet 81 mg 81 mg Oral Daily Oriana Cho, DO 81 mg at 04/05/21 0918 atorvastatin (LIPITOR) tablet 20 mg 20 mg Oral Daily Oriana Cho, DO 20 mg at 04/05/21 0918 calcium-cholecalciferol 500-200 MG-UNIT per tablet 1 tablet 1 tablet Oral Daily Oriana Cho, DO 1 tablet at 04/05/21 0918 docusate sodium (COLACE) capsule 100 mg 100 mg Oral BID Oriana Cho, DO 100 mg at 04/05/21 09 donepezil (ARICEPT) tablet 5 mg 5 mg Oral Nightly Oriana Cho, DO 5 mg at 04/04/21 2135 pantoprazole (PROTONIX) tablet 40 mg 40 mg Oral QAM AC Oriana Cho, DO 40 mg at 04/05/21 0517 gabapentin (NEURONTIN) capsule 100 mg 100 mg Oral BID Oriana Cho, DO 100 mg at 04/05/21 0919 insulin lispro (HUMALOG) injection vial 0-6 Units 0-6 Units SubCUTAneous TID WC Oriana Cho, DO 2 Units at 04/05/21 1224 mineral oil-hydrophilic petrolatum (AQUAPHOR) ointment Topical BID Oriana Cho, DO Given at 04/05/21 0914 polyethylene glycol (GLYCOLAX) packet 17 g 17 g Per G Tube Daily PRN Oriana Cho, DO heparin (porcine) injection 5,000 Units 5,000 Units SubCUTAneous 3 times per day Leonel Sood MD 5,000 Units at 04/05/21 1223 ipratropium-albuterol (DUONEB) nebulizer solution 1 ampule 1 ampule Inhalation Q4H PRN Leonel Sood MD sodium chloride flush 0.9 % injection 10 mL 10 mL IntraCATHeter Q12H Leonel Sood MD 10 mL at 04/05/21 0406 heparin flush 100 UNIT/ML injection 250 Units 250 Units IntraCATHeter Q12H Leonel Sood MD 250 Units at 04/05/21 0405 sodium chloride flush 0.9 % injection 10 mL 10 mL IntraCATHeter PRN Leonel Sood MD heparin flush 100 UNIT/ML injection 250 Units 250 Units IntraCATHeter PRN Leonel Sood MD 250 Units at 04/01/21 1736 miconazole (MICOTIN) 2 % powder Topical BID Leonel Sood MD Given at 04/05/21 0926 stomahesive in petrolatum (ET MIX) Topical PRN Leonel Sood MD stomahesive in petrolatum (ET MIX) Topical BID Leonel Sood MD Given at 04/05/21 0915 sodium chloride flush 0.9 % injection 5-40 mL 5-40 mL IntraVENous 2 times per day Leonel Sood MD 10 mL at 04/05/21 0927 sodium chloride flush 0.9 % injection 5-40 mL 5-40 mL IntraVENous PRN Leonel Sood MD 0.9 % sodium chloride infusion 25 mL IntraVENous PRN Leonel Sood MD ondansetron (ZOFRAN-ODT) disintegrating tablet 4 mg 4 mg Oral Q8H PRN Leonel Sood MD Or ondansetron (ZOFRAN) injection 4 mg 4 mg IntraVENous Q6H PRN Leonel Sood MD glucose (GLUTOSE) 40 % oral gel 15 g 15 g Oral PRN Leonel Sood MD dextrose 50 % IV solution 12.5 g IntraVENous PRN Leonel Sood MD glucagon (rDNA) injection 1 mg 1 mg IntraMUSCular PRN Leonel Sood MD dextrose 5 % solution 100 mL/hr IntraVENous PRN Leonel Sood MD sodium chloride dextrose Data/ Recent Labs 04/03/2122104/04/210 04/05/21223 WBC 4.0 3.9 3.9 HGB 8.2* 8.4* 8.2* HCT 25.9* 26.7* 26.0* MCV 87.5 87.5 88.1 PLT 225 237 209 Recent Labs 04/03/2122104/04/21 0010 04/05/21223 NA 140 139 137 K 3.9 3.9 4.0 CL 104 102 101 CO2 31* 29 29 GLUCOSE 207* 229* 210* PHOS 3.6 3.8 3.3 BUN 21* 23* 16 CREATININE 2.03* 2.11* 1.56* Assessment/Plan: Salazar Coyle 70 y.o. year old female who we are seeing in consultation for WHITLEY. # WHITLEY/ATN from Normotensive ATN (hypovolemia) on MH TEACHER since 03/17/2021 - Scr as expected, uop picking up?, monitor, BP stable - HD per [facility] schedule - Last HD 04/04 yesterday, 3L UF tolerated well - Next HD tomorrow - Continue to hold acei and diuretics. - UOP oliguric - Renally dose medications for CrCl < 15 - now w/ TDC #HTN - BP stable # Metabolic Encephalopathy suspected from gabapentin/baclofen - Pt with dementia at baseline - Noted on baclofen and gabapentin # Acute on Chronic Resp Acidosis from PHOEBE - Per primary - extubated 03/20 # Acute on Chronic Bilateral lower ext Cellulitis - Off abx - Noted multi gaby on wound culture # Anemia - Hgb stable #DM2 -defer to Primary Noted placement issues ongoing Thank you for the consult and the opportunity to participate in the care of this patient. Please do not hesitate to call with any questions or concerns. Ana Brennan APRN, MANAGER PRESENTATION [facility] [phone] office I have reviewed the patient chart and dw HAND I THERMAL CUTTER the patient case, and agree with above documented A & P, any variance is noted below Same plan as above Octavio Mills MD [facility] team Images from the original note were not included. Med Team Progress Note Salazar Coyle : 1950(70 y.o.) Date: April 05, 2021 Med Team: Alvaro Attending: Dr. Jet Sanchez Chief Complaint: R Chronic Foot wound; AMS Subjective: Overnight, no acute issues reported. Today, patient is doing well. No acute issues today besides mild lower extremity foot pain during bandage change. Patient remains adamant to want to pursue care at [facility] at this time and disappointed that she cannot have acceptance there due to her dialysis transportation issues. The patient is tearful at the fact that disposition is taking this long. Review of Systems Constitutional: Positive for activity change and fatigue. Negative for appetite change, chills, diaphoresis, fever and unexpected weight change. HENT: Negative for congestion and sore throat. Eyes: Negative for photophobia and visual disturbance. Respiratory: Negative for apnea, cough, choking, chest tightness, shortness of breath, wheezing and stridor. Cardiovascular: Negative for chest pain, palpitations and leg swelling. Gastrointestinal: Negative for abdominal distention, abdominal pain, constipation, diarrhea, nausea and vomiting. Genitourinary: Negative for difficulty urinating, dysuria, flank pain, frequency, hematuria and urgency. Musculoskeletal: Positive for arthralgias, back pain, gait problem, joint swelling, myalgias, neck pain and neck stiffness. Skin: Positive for rash and wound. Negative for color change and pallor. Neurological: Positive for weakness, numbness and headaches. Negative for dizziness and light-headedness. Psychiatric/Behavioral: Positive for agitation and sleep disturbance. Scheduled Meds: [START ON 04/08/2021] collagenase Topical Q MWF insulin glargine 14 Units SubCUTAneous Nightly Baclofen 5 mg Oral BID melatonin 3 mg Oral Nightly acetaminophen 975 mg Oral TID aspirin 81 mg Oral Daily atorvastatin 20 mg Oral Daily calcium-cholecalciferol 1 tablet Oral Daily docusate sodium 100 mg Oral BID donepezil 5 mg Oral Nightly pantoprazole 40 mg Oral QAM AC gabapentin 100 mg Oral BID insulin lispro 0-6 Units SubCUTAneous TID WC mineral oil-hydrophilic petrolatum Topical BID heparin (porcine) 5,000 Units SubCUTAneous 3 times per day sodium chloride flush 10 mL IntraCATHeter Q12H heparin flush 250 Units IntraCATHeter Q12H miconazole Topical BID stomahesive in petrolatum Topical BID sodium chloride flush 5-40 mL IntraVENous 2 times per day Continuous Infusions: sodium chloride dextrose PRN meds used in last 24hrs: oxycodone; Ativan; heparin Objective: BP (!) 147/61 Pulse 84 Temp 98.7 F (37.1 C) (Temporal) Resp 20 Ht 5' 2" (1.575 m) Wt (!) 392 lb 13.8 oz (178.2 kg) SpO2 94% BMI 71.86 kg/m Physical Exam Constitutional: General: She is not in acute distress. Appearance: Normal appearance. She is obese. She is not ill-appearing, toxic-appearing or diaphoretic. HENT: Head: Normocephalic and atraumatic. Right Ear: External ear normal. Left Ear: External ear normal. Nose: Nose normal. No congestion or rhinorrhea. Mouth/Throat: Mouth: Mucous membranes are moist. Pharynx: Oropharynx is clear. No oropharyngeal exudate or posterior oropharyngeal erythema. Eyes: General: No scleral icterus. Right eye: No discharge. Left eye: No discharge. Extraocular Movements: Extraocular movements intact. Conjunctiva/sclera: Conjunctivae normal. Pupils: Pupils are equal, round, and reactive to light. Cardiovascular: Rate and Rhythm: Normal rate and regular rhythm. Pulses: Normal pulses. Heart sounds: Normal heart sounds. No murmur heard. No friction rub. No gallop. Comments: Heart sounds distant. Right Tunneled Dialysis catheter in place Pulmonary: Effort: Pulmonary effort is normal. No respiratory distress. Breath sounds: Normal breath sounds. No stridor. No wheezing, rhonchi or rales. Chest: Chest wall: No tenderness. Abdominal: General: Abdomen is flat. There is no distension. Palpations: Abdomen is soft. Tenderness: There is no abdominal tenderness. Musculoskeletal: General: Swelling, tenderness, deformity and signs of injury present. Cervical back: Normal range of motion and neck supple. No rigidity or tenderness. Right lower leg: Edema present. Left lower leg: Edema present. Comments: ROM limited secondary to pain. Skin: Coloration: Skin is not jaundiced or pale. Findings: Erythema, lesion and rash present. No bruising. Neurological: General: No focal deficit present. Mental Status: She is alert and oriented to person, place, and time. Mental status is at baseline. Cranial Nerves: No cranial nerve deficit. Sensory: No sensory deficit. Motor: No weakness. [facility] within last 24 hours Lab Results Component Value Date/Time WBC 3.9 04/05/2021 02:24 AM Hemoglobin 8.2 (L) 04/05/2021 02:24 AM Hematocrit 26.0 (L) 04/05/2021 02:24 AM Platelets 209 04/05/2021 02:24 AM MCV 88.1 04/05/2021 02:24 AM Lab Results Component Value Date/Time Sodium 137 04/05/2021 02:24 AM Potassium 4.0 04/05/2021 02:24 AM Chloride 101 04/05/2021 02:24 AM CO2 29 04/05/2021 02:24 AM BUN 16 04/05/2021 02:24 AM CREATININE 1.56 (H) 04/05/2021 02:24 AM Glucose 210 (H) 04/05/2021 02:24 AM Calcium 8.8 04/05/2021 02:24 AM Phosphorus 3.3 04/05/2021 02:24 AM Assessment and Plan: Acute Metabolic, Hypercapnic Encephalopathy (Resolved)/Delirium (Delirium)/Hx of COPD Assessment: - Resolved. Awaiting placement still. Plan: - SW/TCC to finalize disposition for patient - Continue delirium protocols WHITLEY With ATN on HD MWF Assessment: - Dialysis MWF per nephrology Plan: - Management of HTN per below - Continue dialysis MWF Acute on Chronic R foot Wound with Positive Providencia Stuartii, Pseudomonas, and MRSA/ Chronic Lymphedema Assessment: - Wound care managing dressing changes. Plan: - Continue low dose ativan PRN for dressing changes - Continue oxycodone regimen and gabapentin regimen - Bowel regimen with colace HTN Assessment: - BP normotensive with some hypertensive episodes Plan: - Can consider restarting midodrine if persistently hypotensive - PRN hydralazine if hypertensive Type II DM with Hyperglycemia / Dysphagia Assessment: - Glucose points inpatient controlled. Was previously on significant insulin demands as outpatient. Plan: - Lantus 14 U Nightly - Sliding scale Hx of Dementia Assessment: - Mentation stable Plan: - Continue donepezil 5mg nightly - Continue baclofen BID - Delirium precautions Chronic Pain Assessment: - In persistent MSK based pain - Tolerating Oxycodone and gabapentin well - Has intolerations to wound changes. Needing ativan to help assist with wound dressing. Plan: - Continue low dose ativan PRN for dressing changes - Continue oxycodone regimen and gabapentin regimen - Bowel regimen with colace Morbid Obesity / HLD Assessment: - BMI = 73.47 Plan: - Will need outpatient evaluation for obesity - Continue Atorvastatin 20mg daily Paroxysmal Afib Assessment: - Stable Plan: - Continue ASA - Goals of Care: FULL CODE - DVT Prophylaxis: HSQ q8h - GI Prophylaxis: Protonix daily - Diet: Dysphagia - soft and bite sized Associated attestation - Jet Sanchez MD - 04/06/2021 6:17 PM EST I saw and evaluated the patient. I agree with the findings and plan of care as documented in the resident's note, except as noted in Green text. Patient seen and examined personally at 0919 (Date of Service: 04/05/21) Arias Changes to Care Plan: - Awaiting placement I spent over 51% total time of 26 minutes counseling (or coordinating care). Discussed current plan of care with patient. Coordinated care with resident team. Images from the original note were not included. Wound Care follow up visit: (focused assessment: Right plantar foot wound VAC dressing application) Pt premedicated for pain per medical staff services manager with oral pain medication, prior to wound VAC dressing change. Pt repeatedly stated "you can't lift my leg". Reassurance offered but explained to pt that her leg would have to be lifted slightly for dressing change on right heel. Pt began to cry. Reassurance offered. Old dressing removed from right plantar foot without difficulties. Right plantar foot with full thickness surgical wound measuring 9 x 5.5 x 0.8cm deep. Wound bed with 70% pink-red tissues, 30% thin yellow-brown slough and exposed bone palpated (see photo below) Periwound clear, no erythema or induration. Thin chavarria resolving eschar noted at proximal aspect, 1cm. Small amount of serosang drainage noted on old dressing. No odor or purulence noted. Wound and periwound cleansed with saline, patted dry and cavilon no sting applied to periwound. Santyl ointment applied to slough tissues. 1 piece of white foam applied over bone, topped with 1 piece of black foam. Trac pad bridged to dorsal foot. Adapt ring used along base of toes to help achieve/maintain seal. Wound VAC well sealed at 125 mmHg continuous suction. Secured with kerlix. Pt tolerated the dressing ok but was extremely anxious about lifting her leg and screamed out when kerlix applied. Pt now agreeable to wearing HeelMedix boot but states it has to put on when she's rolled to the side not by lifting her leg. Pt rolled to left side with heavy assist of 2 and Heelmedix boot placed on right foot. Tips of right great toe and 4th toe with dry eschars. Cleansed with saline, patted dry. Right plantar heel with Stage 2 pressure injury measuring 3 x 1cm (difficult to fully assess due to pt not allowing her leg to be lifted.)[place] tissues with surrounding pink epithelial tissues. Periwound clear. No purulence. Cleansed with saline, patted dry, and covered with mepilex 4x4 foam dressing. Padded with ABD and secured with kerlix. New DTI noted on plantar medial aspect of heel measuring 1.5 x 1cm. Instructed pt on the importance of offloading with boots and pt states "I wear boots at home, I'll wear them" (pt had previously refused boots) HeelMedix boot placed on right foot. Palpable DP pulses. Left heel intact. Buttocks/coccyx not assessed. Wound Care will continue to follow pt for wound VAC dressing changes //. Will plan for next dressing change Sunday. Please page Wound Care Team for any questions or concerns at pager [phone]. Notified Orthopedics regarding wound vac dressing to be replaced tomorrow, nursing will continue santyl with WTD dressing as ordered. Images from the original note were not included. Med Team Progress Note Salazar Coyle : 1950(70 y.o.) Date: April 04, 2021 Med Team: Alvaro Attending: Dr. Jet Sanchez Chief Complaint: R Chronic Foot wound; AMS Subjective: Overnight, patient was moderately hypertensive. However, did have several hypotensive episodes as well. Today, patient is doing well. No acute issues and no distress. Patient is completely asymptomatic and, "ready to go." Placement still pending per SW/TCC team. Although patient is adamant she wants to attend [facility], neither facility can do HD with patient on a stretcher. Further referrals to other SNFs were made. Review of Systems Constitutional: Negative for activity change, appetite change, chills, diaphoresis, fatigue, fever and unexpected weight change. HENT: Negative for congestion and sore throat. Eyes: Negative for photophobia and visual disturbance. Respiratory: Negative for apnea, cough, choking, chest tightness, shortness of breath, wheezing and stridor. Cardiovascular: Negative for chest pain, palpitations and leg swelling. Gastrointestinal: Negative for abdominal distention, abdominal pain, constipation, diarrhea, nausea and vomiting. Musculoskeletal: Positive for arthralgias, back pain, gait problem, joint swelling and myalgias. Negative for neck pain and neck stiffness. Skin: Positive for color change, rash and wound. Negative for pallor. Neurological: Positive for headaches. Negative for dizziness, weakness, light-headedness and numbness. Scheduled Meds: insulin glargine 14 Units SubCUTAneous Nightly collagenase Topical Daily Baclofen 5 mg Oral BID melatonin 3 mg Oral Nightly acetaminophen 975 mg Oral TID aspirin 81 mg Oral Daily atorvastatin 20 mg Oral Daily calcium-cholecalciferol 1 tablet Oral Daily docusate sodium 100 mg Oral BID donepezil 5 mg Oral Nightly pantoprazole 40 mg Oral QAM AC gabapentin 100 mg Oral BID insulin lispro 0-6 Units SubCUTAneous TID WC mineral oil-hydrophilic petrolatum Topical BID heparin (porcine) 5,000 Units SubCUTAneous 3 times per day sodium chloride flush 10 mL IntraCATHeter Q12H heparin flush 250 Units IntraCATHeter Q12H miconazole Topical BID stomahesive in petrolatum Topical BID sodium chloride flush 5-40 mL IntraVENous 2 times per day Continuous Infusions: sodium chloride dextrose PRN meds used in last 24hrs: Oxycodone; Ativan Objective: BP 99/62 Pulse 64 Temp 96.7 F (35.9 C) (Temporal) Resp 18 Ht 5' 2" (1.575 m) Wt (!) 401 lb 10.9 oz (182.2 kg) SpO2 100% BMI 73.47 kg/m Physical Exam Constitutional: General: She is not in acute distress. Appearance: Normal appearance. She is obese. She is not ill-appearing, toxic-appearing or diaphoretic. HENT: Head: Normocephalic and atraumatic. Right Ear: External ear normal. Left Ear: External ear normal. Nose: Nose normal. No congestion or rhinorrhea. Mouth/Throat: Mouth: Mucous membranes are moist. Pharynx: Oropharynx is clear. No oropharyngeal exudate or posterior oropharyngeal erythema. Eyes: General: No scleral icterus. Right eye: No discharge. Left eye: No discharge. Extraocular Movements: Extraocular movements intact. Conjunctiva/sclera: Conjunctivae normal. Pupils: Pupils are equal, round, and reactive to light. Cardiovascular: Rate and Rhythm: Normal rate and regular rhythm. Pulses: Normal pulses. Heart sounds: Normal heart sounds. No murmur heard. No friction rub. No gallop. Comments: Right Tunneled Dialysis catheter in place Pulmonary: Effort: Pulmonary effort is normal. No respiratory distress. Breath sounds: Normal breath sounds. No stridor. No wheezing, rhonchi or rales. Chest: Chest wall: No tenderness. Abdominal: General: Abdomen is flat. There is no distension. Palpations: Abdomen is soft. Tenderness: There is no abdominal tenderness. There is no guarding. Musculoskeletal: General: Swelling, tenderness and deformity present. Cervical back: Normal range of motion and neck supple. No rigidity or tenderness. Right lower leg: Edema present. Left lower leg: Edema present. Skin: General: Skin is warm and dry. Coloration: Skin is not jaundiced or pale. Findings: Erythema and rash present. No bruising or lesion. Neurological: General: No focal deficit present. Mental Status: She is alert and oriented to person, place, and time. Mental status is at baseline. Cranial Nerves: No cranial nerve deficit. Sensory: No sensory deficit. Motor: No weakness. [facility] within last 24 hours Lab Results Component Value Date/Time WBC 3.9 04/04/2021 12:10 AM Hemoglobin 8.4 (L) 04/04/2021 12:10 AM Hematocrit 26.7 (L) 04/04/2021 12:10 AM Platelets 237 04/04/2021 12:10 AM MCV 87.5 04/04/2021 12:10 AM Lab Results Component Value Date/Time Sodium 139 04/04/2021 12:10 AM Potassium 3.9 04/04/2021 12:10 AM Chloride 102 04/04/2021 12:10 AM CO2 29 04/04/2021 12:10 AM BUN 23 (H) 04/04/2021 12:10 AM CREATININE 2.11 (H) 04/04/2021 12:10 AM Glucose 229 (H) 04/04/2021 12:10 AM Calcium 8.9 04/04/2021 12:10 AM Phosphorus 3.8 04/04/2021 12:10 AM Assessment and Plan: Acute Metabolic, Hypercapnic Encephalopathy (Resolved)/Delirium (Delirium)/Hx of COPD Assessment: - Resolved. Awaiting placement now. Plan: - SW/TCC to finalize disposition for patient - Continue delirium protocols WHITLEY With ATN on HD MWF Assessment: - Dialysis MWF per nephrology Plan: - Management of HTN per below - Continue dialysis MWF Acute on Chronic R foot Wound with Positive Providencia Stuartii, Pseudomonas, and MRSA/ Chronic Lymphedema Assessment: - Wound care managing dressing changes. Ortho and ID signed off Plan: - Will add very low dose ativan PRN for dressing changes - Continue oxycodone regimen and gabapentin regimen - Bowel regimen with colace HTN Assessment: - BP normotensive with some hypertensive episodes Plan: - Can consider restarting midodrine if persistently hypotensive - PRN hydralazine if hypertensive Type II DM with Hyperglycemia / Dysphagia Assessment: - Glucose points inpatient controlled Plan: - Lantus 14 U Nightly - Sliding scale Hx of Dementia Assessment: - Mentation stable Plan: - Continue donepezil 5mg nightly - Continue baclofen BID - Delirium precautions Chronic Pain Assessment: - In persistent MSK based pain - Tolerating Oxycodone and gabapentin well - Has intolerations to wound changes. Needing ativan to help assist with wound dressing. Plan: - Will add very low dose ativan PRN for dressing changes - Continue oxycodone regimen and gabapentin regimen - Bowel regimen with colace Morbid Obesity / HLD Assessment: - BMI = 73.47 Plan: - Will need outpatient evaluation for obesity - Continue Atorvastatin 20mg daily Paroxysmal Afib Assessment: - Stable Plan: - Continue ASA - Goals of Care: FULL CODE - DVT Prophylaxis: HSQ q8h - GI Prophylaxis: Protonix daily - Diet: Dysphagia - soft and bite sized Associated attestation - Jet Sanchez MD - 04/04/2021 5:20 PM EST I saw and evaluated the patient. I agree with the findings and plan of care as documented in the resident's note, except as noted in Green text. Patient seen and examined personally for the first time by me 1230 - her case is new to me. (Date of Sevice: 04/04/21) Arias Changes to Care Plan: -Awaiting placement I spent over 51% total time of 26 minutes counseling (or coordinating care). Discussed current plan of care with patient. Coordinated care with resident team. [facility] Progress Note Subjective/ Salazar Amandaford 70 y.o. year old female who we are seeing in consultation for WHITLEY. All labs / data/ chart and interval events are noted HD today 04/04 BP has been stable Edema is noted AMS waxing and waining Oliguric Lytes are as expected No other new issues No change in the PFSH at this time Complete ROS otherwise negative Objective/ Vitals: 04/04/21 0930 04/04/21 0945 04/04/21 1000 04/04/21 1015 BP: 130/83 (!) 152/52 (!) 162/56 (!) 149/70 Pulse: 62 55 73 57 Resp: Temp: TempSrc: SpO2: Weight: Height: 24HR INTAKE/OUTPUT: No intake or output data in the 24 hours ending 04/04/21 1044 General Appearance: NAD, awake, morbidly obese HEENT: NC/AT, kayley JVD d/t body habitus Lungs: Distant , CTA bilaterally, no wheeze, rales or rhonchi, good air entry, good respiratory effort Heart: Heart sounds are regular, No murmur, gallop or rub appreciated Abdomen: +BS, soft, nttp, nd, +abdominal wall edema Extremities: +2 upper and lower bilateral ext edema. Difficult to determine if just obesity vs third spacing. Neurologic: no asterixis, moving all ext Affect: confused Access: RIJ TDC, normal exam Current Facility-Administered Medications Medication Dose Route Frequency Provider Last Rate Last Admin insulin glargine (LANTUS) injection vial 14 Units 14 Units SubCUTAneous Nightly Kodak Dove MD 14 Units at 04/03/21 204 oxyCODONE (ROXICODONE) immediate release tablet 5 mg 5 mg Oral Q8H PRN Veronika Segal MD 5 mg at 04/04/21 0812 collagenase ointment Topical Daily Phillip Victor MD Given at 04/03/21 0936 heparin (porcine) injection 2,100 Units 2,100 Units IntraCATHeter PRN Reynold Garner MD 2,100 Units at 03/31/21 1300 heparin (porcine) injection 2,200 Units 2,200 Units IntraCATHeter PRN Reynold Garner MD 2,200 Units at 03/31/21 1300 baclofen (LIORESAL) tablet 5 mg 5 mg Oral BID Juan Adams, DO 5 mg at 04/04/21 08 melatonin tablet 3 mg 3 mg Oral Nightly Keon Young MD 3 mg at 04/03/212039 acetaminophen (TYLENOL) tablet 975 mg 975 mg Oral TID Oriana Cho, DO 975 mg at 04/04/21 0812 aspirin chewable tablet 81 mg 81 mg Oral Daily Oriana Cho, DO 81 mg at 04/04/21 08 atorvastatin (LIPITOR) tablet 20 mg 20 mg Oral Daily Oriana Cho, DO 20 mg at 04/04/21 0812 calcium-cholecalciferol 500-200 MG-UNIT per tablet 1 tablet 1 tablet Oral Daily Oriana Cho, DO 1 tablet at 04/04/21 08 docusate sodium (COLACE) capsule 100 mg 100 mg Oral BID Oriana Cho, DO 100 mg at 04/04/21 0812 donepezil (ARICEPT) tablet 5 mg 5 mg Oral Nightly Oriana Cho, DO 5 mg at 04/03/212041 pantoprazole (PROTONIX) tablet 40 mg 40 mg Oral QAM AC Oriana Cho, DO 40 mg at 04/01/21 0536 gabapentin (NEURONTIN) capsule 100 mg 100 mg Oral BID Oriana Cho, DO 100 mg at 04/04/21 0812 insulin lispro (HUMALOG) injection vial 0-6 Units 0-6 Units SubCUTAneous TID WC Oriana Cho, DO 1 Units at 04/04/21 0814 mineral oil-hydrophilic petrolatum (AQUAPHOR) ointment Topical BID Oriana Cho, DO Given at 04/04/21 0813 polyethylene glycol (GLYCOLAX) packet 17 g 17 g Per G Tube Daily PRN Oriana Doherty DO heparin (porcine) injection 5,000 Units 5,000 Units SubCUTAneous 3 times per day Leonel Sood MD 5,000 Units at 04/03/21 2041 ipratropium-albuterol (DUONEB) nebulizer solution 1 ampule 1 ampule Inhalation Q4H PRN Leonel Sood MD sodium chloride flush 0.9 % injection 10 mL 10 mL IntraCATHeter Q12H Leonel Sood MD 10 mL at 04/03/21 1515 heparin flush 100 UNIT/ML injection 250 Units 250 Units IntraCATHeter Q12H Leonel Sood MD 250 Units at 04/03/21 1514 sodium chloride flush 0.9 % injection 10 mL 10 mL IntraCATHeter PRN Leonel Sood MD heparin flush 100 UNIT/ML injection 250 Units 250 Units IntraCATHeter PRN Leonel Sood MD 250 Units at 04/01/21 1736 miconazole (MICOTIN) 2 % powder Topical BID Leonel Sood MD Given at 04/04/21 0813 stomahesive in petrolatum (ET MIX) Topical PRN Leonel Sood MD stomahesive in petrolatum (ET MIX) Topical BID Leonel Sood MD Given at 04/04/21 0813 sodium chloride flush 0.9 % injection 5-40 mL 5-40 mL IntraVENous 2 times per day Leonel Sood MD 10 mL at 04/04/21 0811 sodium chloride flush 0.9 % injection 5-40 mL 5-40 mL IntraVENous PRN Leonel Sood MD 0.9 % sodium chloride infusion 25 mL IntraVENous PRN Leonel Sood MD ondansetron (ZOFRAN-ODT) disintegrating tablet 4 mg 4 mg Oral Q8H PRN Leonel Sood MD Or ondansetron (ZOFRAN) injection 4 mg 4 mg IntraVENous Q6H PRN Leonel Sood MD glucose (GLUTOSE) 40 % oral gel 15 g 15 g Oral PRN Leonel Sood MD dextrose 50 % IV solution 12.5 g IntraVENous PRN Leonel Sood MD glucagon (rDNA) injection 1 mg 1 mg IntraMUSCular PRN Leonel Sood MD dextrose 5 % solution 100 mL/hr IntraVENous PRN Leonel Sood MD sodium chloride dextrose Data/ Recent Labs 04/02/21 0054 04/03/2122104/04/21 0010 WBC 4.4 4.0 3.9 HGB 8.1* 8.2* 8.4* HCT 25.6* 25.9* 26.7* MCV 87.6 87.5 87.5 PLT 217 225 237 Recent Labs 04/02/21 0054 04/03/2122104/04/21 0010 NA 140 140 139 K 3.8 3.9 3.9 CL 102 104 102 CO2 30 31* 29 GLUCOSE 210* 207* 229* PHOS 3.6 3.6 3.8 BUN 16 21* 23* CREATININE 1.95* 2.03* 2.11* Assessment/Plan: Salazar Coyle 70 y.o. year old female who we are seeing in consultation for WHITLEY. # WHITLEY/ATN from Normotensive ATN (hypovolemia) on MH TEACHER since 03/17/2021 - Scr as expected, uop picking up? BP stable - HD per MWF schedule - Last HD 04/04 today, 3L UF tolerated well - Continue to hold acei and diuretics. - UOP oliguric - Renally dose medications for CrCl < 15 - now w/ TDC #HTN - BP stable # Metabolic Encephalopathy suspected from gabapentin/baclofen - Pt with dementia at baseline - Noted on baclofen and gabapentin # Acute on Chronic Resp Acidosis from PHOEBE - Per primary - extubated 03/20 # Acute on Chronic Bilateral lower ext Cellulitis - Off abx - Noted multi gaby on wound culture # Anemia - Hgb stable #DM2 -defer to Primary Noted placement issues ongoing [facility] Patient Name: Salazar Coyle Patient : 1950 Acct: [id number] Date of Admission: 03/08/2021 Room/Bed: [facility] Code Status: Full Code Allergies: No Known Allergies Diagnosis: Patient Active Problem List Diagnosis Foot ulcer (HCC) Wounds, multiple Type 2 diabetes mellitus with hyperglycemia (HCC) Cerebrovascular accident (HCC) Recurrent UTI PAF (paroxysmal atrial fibrillation) (HCC) Osteoarthrosis Hypertension Hyperlipemia Degenerative disc disease, cervical Chronic pain Bladder spasm Subacute osteomyelitis of right foot (HCC) Palliative care encounter 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) Morbid obesity with BMI of 60.0-69.9, adult (HCC) Cognitive decline Encephalopathy acute WHITLEY (acute kidney injury) (HCC) Acute respiratory failure (HCC) Acute on chronic respiratory failure with hypercapnia (HCC) Edema Treatment: Hemodilaysis 2:1 Priority: Routine Location: Acute Room Diabetic: Yes NPO: No Isolation Precautions: Dialysis Consent for Treatment Verified: Yes Blood Consent Verified: Not Applicable Safety Verified: Identify (I), Consent (C), Equipment (E), HepB Status (B), Orders Complete (O), Access Verified (A) and Timeliness (T) Time out performed prior to access at 0850 hours. Report Received from Primary RN at 0801 hours. Primary RN (First Initial, Last Name, Title): Octavio Ernandez RN Incapacitated Nurse Education Completed: Not Applicable HBsAg ONLY: Date Drawn: March 17, 2021 Results: Negative HBsAb: Date Drawn: March 17, 2021 Results: Susceptible <10 Order Dialysis Bath K+ (Potassium): 3 Ca+ (Calcium): 2.5 Na+ (Sodium): 137 HCO3 (Bicarb): 35 Na+ Modeling: Not Applicable Dialyzer: [id number] Dialysate Temperature (C): 36 Blood Flow Rate (BFR): 400 Dialysate Flow Rate (DFR): 600 Access to be Utilized Access: Tunneled Catheter Location: Subclavian Side: Right Needle gauge: Not Applicable + Bruit/Thrill: Not Applicable First Use X-ray Verified: Yes OK to use line order: Yes Site Assessment: Signs and Symptoms of Infection/Inflammation: None If yes: Not Applicable Dressing: Dry and Intact Site Prep: Medical Aseptic Technique Dressing Changed this Treatment: Yes If yes, by whom: pct Date of Last Dressing Change: March 28, [address]?: Yes Red Alcohol Caps in place?: Yes Gauze Dressing?: No Non Dialysis Use?: No Comment: Flows: Good, Patent If access problem, who was notified: Pre and Post-Assessment Patient Vitals for the past 8 hrs: Level of Consciousness Oriented X Heart Rhythm Respiratory Quality/Effort O2 Device Bilateral Breath Sounds Skin Color Skin Condition/Temp Abdomen Inspection Bowel Sounds (All Quadrants) Edema Edema Generalized RUE Edema LUE Edema RLE Edema LLE Edema Pain Level 04/04/21 0700 1 04/04/21 0750 Alert (0) Nasal cannula 04/04/21 0800 Alert (0) Unlabored Appropriate for ethnicity Dry;Warm;Swollen Rotund Generalized;Left lower extremity;Left upper extremity;Right lower extremity;Right upper extremity Pitting;+2 Non-pitting Non-pitting +2;Pitting +2;Pitting 04/04/21 0811 4 04/04/21 0855 Alert (0) 3 Regular Unlabored Nasal cannula Clear Appropriate for ethnicity Dry;Swollen;Warm Soft Active Generalized +3;Pitting 04/04/21 1155 Clear Generalized +3;Pitting 04/04/21 1222 Nasal cannula Labs Recent Labs 04/02/21 0054 04/03/21 0222 04/04/21 0010 WBC 4.4 4.0 3.9 HGB 8.1* 8.2* 8.4* HCT 25.6* 25.9* 26.7* PLT 217 225 237 Recent Labs 04/02/21 0054 04/03/21 0222 04/04/21 0010 NA 140 140 139 K 3.8 3.9 3.9 CL 102 104 102 CO2 30 31* 29 BUN 16 21* 23* CREATININE 1.95* 2.03* 2.11* GLUCOSE 210* 207* 229* IV Drips and Rate/Dose sodium chloride dextrose Safety - Before each treatment: Dialysis Machine No.: [id number] RO Machine No.: [id number] Dialyzer Lot No.: [id number] RO Machine Log Sheet Completed: Yes Machine Alarm Self Test: Completed;Passed (04/04/21 08) Machine Autotest: Passed,Completed Air Foam Detector: Proper Function,Tested,pH Reading Extracorporeal Circuit Tested for Integrity: Yes Machine Conductivity: 13.8 Manual Conductivity: 13.8 Machine Ph: 7 Bicarbonate Concentrate Lot No.: [id number] Acid Concentrate Lot No.: [id number] Manual Ph: 7 Bleach Test (Neg): Yes Bath Temperature: 96.8 F (36 C) Tubing Lot#: [id number] Conductivity Meter Serial #: [id number] All Connections Secure?: Yes Venous Parameters Set?: Yes Arterial Parameters Set?: Yes Saline Line Double Clamped?: Yes Air Foam Detector Engaged?: Yes Machine Functioning Alarm Free? Yes Prime Given: 200ml Chlorine Testing - Before each treatment and every 4 hours: Treatment Treatment Number: 3 Time On: 0855 Time Off: 1155 Treatment Goal: 3-4L Weight: (!) 401 lb 10.9 oz (182.2 kg) (04/04/21 031) 1st check: less than 0.1 ppm at: 0845 hours 2nd check: less than 0.1 ppm at: 1145 hours 3rd check: Not Applicable (if greater than 0.1 ppm, then check every 30 minutes from secondary) Access Flows and Pressures Patient Vitals for the past 8 hrs: Blood Flow Rate (ml/min) Ultrafiltration Rate (ml/hr) Ultrafiltration Total Arterial Pressure (mmHg) Venous Pressure (mmHg) TMP DFR Comments Access Visible 04/04/21 0855 200 ml/min 1170 ml/hr 12 ml -70 mmHg 100 60 600 Tx intaited Yes 04/04/21 0856 400 ml/min 1170 ml/hr 64 ml -90 mmHg 100 70 600 Bfr increased. good access flow Yes 04/04/21 0915 400 ml/min 1170 ml/hr 531 ml -90 mmHg 100 70 600 lowered goal due to bp slowly decreasing RN aware Yes 04/04/21 0930 400 ml/min 1170 ml/hr 789 ml -90 mmHg 100 70 600 pt stable Yes 04/04/21 0945 400 ml/min 1170 ml/hr 1071 ml -90 mmHg 100 70 600 pt stable Yes 04/04/21 1000 400 ml/min 1170 ml/hr 1315 ml -90 mmHg 100 70 600 pt stable Yes 04/04/21 1015 400 ml/min 1170 ml/hr 1581 ml -90 mmHg 100 70 600 pt stable Yes 04/04/21 1030 400 ml/min 1170 ml/hr 1931 ml -120 mmHg 100 70 600 pt stable Yes 04/04/21 1045 400 ml/min 1140 ml/hr 2152 ml -120 mmHg 100 70 600 pt stable Yes 04/04/21 1100 400 ml/min 1140 ml/hr 2436 ml -120 mmHg 100 70 600 pt stable Yes 04/04/21 1115 400 ml/min 1140 ml/hr 2754 ml -120 mmHg 100 70 600 pt stable Yes 04/04/21 1155 3500 ml Tx completed Yes Vital Signs Patient Vitals for the past 8 hrs: BP Temp Pulse Resp SpO2 04/04/21 0750 85/61 97.6 F (36.4 C) 75 18 97 % 04/04/21 0853 (!) 133/26 97.9 F (36.6 C) 62 18 99 % 04/04/21 0855 (!) 140/50 82 04/04/21 0856 (!) 160/77 108 04/04/21 0915 (!) 121/53 61 04/04/21 0930 130/83 62 04/04/21 0945 (!) 152/52 55 04/04/21 1000 (!) 162/56 73 04/04/21 1015 (!) 149/70 57 04/04/21 1030 (!) 162/60 56 04/04/21 1045 (!) 175/50 82 04/04/21 1100 (!) 95/35 71 04/04/21 1115 120/81 75 04/04/21 1155 135/68 97.5 F (36.4 C) 68 04/04/21 1156 (!) 134/58 65 04/04/21 1222 99/62 96.7 F (35.9 C) 64 18 100 % Post-Dialysis Arterial Catheter Locking Solution: Heparin (1000units:1ml) Volume (ml): 2.1 Venous Catheter Locking Solution: Heparin (1000units:1ml) Volume (ml): 2.2 Post-Treatment Procedures: Blood returned,Catheter capped, clamped and heparinized x 2 ports Machine Disinfection Process: Exterior Machine Disinfection Rinseback Volume (ml): 300 ml Total Liters Processed (l/min): 68 l/min Dialyzer Clearance: Lightly streaked Duration of Treatment (minutes): 210 minutes Hemodialysis Intake (ml): 500 ml Hemodialysis Output (ml): 3500 ml NET Removed (ml): 3000 ml Tolerated Treatment: Good Patient Response to Treatment: pt tolerated tx well Physician Notified?: No Provider Notification Provider Notification Reason for Communication: Evaluate;Review case;New orders (03/20/21 1037) Provider Name: Dr Garner (03/20/21 1037) Provider Notification: Physician (03/20/21 1037) Method of Communication: Call (03/20/21 1037) Response: Other (Comment) (stop tx d/t cvc not working) (03/20/21 1037) Notification Time: 1037 (03/20/21 1037) Handoff complete and report given to Primary RN at 1215 hours. Primary RN (First Initial, Last Name, Title): Octavio Ernandez RN Education Person Educated: Patient Knowledge Base: Substantial Barriers to Learning?: None Preferred method of Learning: Oral Topic(s): Access Care, Signs and Symptoms of Infection and Fluid Management Teaching Tools: Explanation Response to Education: Verbalized Understanding Spoke with medical staff services manager Poornima and informed her that Wound Care Nurses would be unable to reapply wound VAC today. A message was sent to ortho service as well. Wound VAC will be reapplied 04/05. Patient premedicated for dressing change with oxycodone and ativan. Previous dressing loosened with saline and removed. New dressing applied per order. Patient tolerated procedure. Patient refused to allow staff to turn her so this nurse could assess patients skin. Patient educated on risks and benefits. Images from the original note were not included. Med Team Progress Note Salazar Coyle : 1950(70 y.o.) Date: April 03, 2021 Med Team: Alvaro Attending: Joanne Chief Complaint: R Chronic Foot wound; AMS Subjective: Patient is a 70 y.o. F with PMH T2DM, morbid obesity, chronic R foot wound who presents from facility with pus draining from R foot wound with dressing removal. On 03/13, patient was found to be altered 2/2 CO2 retention and transferred to ICU. Patient underwent I&D 03/15 by orthopedic surgery. Patient mental status improved and was transferred back to floor on 03/21. - No acute events overnight. - Currently, lying comfortably in bed. hopeful to go to [facility] because she enjoys seeing the deer from her window. -Patient's appeal for [facility] was denied this morning; social work to follow-up with potential discharge plans on Sunday -Denies pain shortness of breath abdominal pain nausea vomiting or fever Agree with the above. No acute overnight events noted. No complaints at this time. Reports no fever, chills, chest pain, shortness of breath, nausea, vomiting or diarrhea. Reports regular bowel movements. Reports pain is currently well controlled. Review of Systems All other systems reviewed and are negative. Scheduled Meds: insulin glargine 14 Units SubCUTAneous Nightly collagenase Topical Daily Baclofen 5 mg Oral BID melatonin 3 mg Oral Nightly acetaminophen 975 mg Oral TID aspirin 81 mg Oral Daily atorvastatin 20 mg Oral Daily calcium-cholecalciferol 1 tablet Oral Daily docusate sodium 100 mg Oral BID donepezil 5 mg Oral Nightly pantoprazole 40 mg Oral QAM AC gabapentin 100 mg Oral BID insulin lispro 0-6 Units SubCUTAneous TID WC mineral oil-hydrophilic petrolatum Topical BID heparin (porcine) 5,000 Units SubCUTAneous 3 times per day sodium chloride flush 10 mL IntraCATHeter Q12H heparin flush 250 Units IntraCATHeter Q12H miconazole Topical BID stomahesive in petrolatum Topical BID sodium chloride flush 5-40 mL IntraVENous 2 times per day Continuous Infusions: sodium chloride dextrose Objective: BP 105/62 Pulse 72 Temp 99.3 F (37.4 C) (Temporal) Resp 16 Ht 5' 2" (1.575 m) Wt (!) 399 lb 11.1 oz (181.3 kg) SpO2 94% BMI 73.10 kg/m Physical Exam Vitals reviewed. Constitutional: General: She is not in acute distress. Appearance: She is obese. Comments: Patient lying comfortably supine HENT: Head: Normocephalic and atraumatic. Mouth/Throat: Mouth: Mucous membranes are moist. Eyes: Extraocular Movements: Extraocular movements intact. Conjunctiva/sclera: Conjunctivae normal. Pupils: Pupils are equal, round, and reactive to light. Cardiovascular: Rate and Rhythm: Normal rate and regular rhythm. Pulses: Normal pulses. Heart sounds: No murmur heard. Pulmonary: Effort: Pulmonary effort is normal. Breath sounds: No wheezing. Abdominal: General: Bowel sounds are normal. Palpations: Abdomen is soft. Tenderness: There is no abdominal tenderness. Musculoskeletal: Right lower leg: Edema present. Left lower leg: Edema present. Skin: General: Skin is warm. Neurological: General: No focal deficit present. Mental Status: She is alert. Mental status is at baseline. Psychiatric: Mood and Affect: Mood normal. Behavior: Behavior normal. [facility] within last 24 hours Lab Results Component Value Date/Time WBC 4.0 04/03/2021 02:22 AM Hemoglobin 8.2 (L) 04/03/2021 02:22 AM Hematocrit 25.9 (L) 04/03/2021 02:22 AM Platelets 225 04/03/2021 02:22 AM MCV 87.5 04/03/2021 02:22 AM Lab Results Component Value Date/Time Sodium 140 04/03/2021 02:22 AM Potassium 3.9 04/03/2021 02:22 AM Chloride 104 04/03/2021 02:22 AM CO2 31 (H) 04/03/2021 02:22 AM BUN 21 (H) 04/03/2021 02:22 AM CREATININE 2.03 (H) 04/03/2021 02:22 AM Glucose 207 (H) 04/03/2021 02:22 AM Calcium 9.1 04/03/2021 02:22 AM Phosphorus 3.6 04/03/2021 02:22 AM Assessment and Plan: Acute encephalopathy, likely multifactorial from hypercapnia, toxic/metabolic, and medication induced, resolved Acute on chronic hypercapnic respiratory failure Intermittent confusion likely 2/2 delirium Hx COPD - Mentation appears to be at baseline today - Patient currently on 2L NC, SpO2>94% - On Gabapentin 100 mg BID given WHITLEY - Continue Oxycodone 5 mg q8h PRN and scheduled acetaminophen, avoid sedating medications - Continue delirium precautions - Patient is medically stable for discharge to facility, however, [facility] and [facility] having concerns regarding transportation to dialysis -will continue to follow up on placement [facility] with ATN with oliguria, on HD MWF - Nephrology following, appreciate recommendations - Tunneled catheter placed by IR on 03/21 - Continue to hold antihypertensives given WHITLEY - HD per nephrology- will continue to follow peripherally Acute on chronic R foot wound with wound cx positive providencia stuartii, pseudomonas, and MRSA Bilateral LE venous stasis Chronic lymphedema - Taken to OR by orthopedic surgery on 03/15 for R foot I&D with wound vac placement - Per orthopedic surgery, good source control obtained in OR - Orthopedic surgery signed off, f/u outpatient (previously scheduled on 03/30/21 at 1:[address] Flores's LEONIDAS, Radha Bergman) - Completed course of IV antibiotics on 03/18/21 - ID signed off, no need for further IV antibiotics, recommend local wound care management - Wound care following, appreciate recommendations, wound dressing changes M/W/ HTN Hypotension, resolved - BP stable, improved since dialysis on 03/24, continue to monitor - Previously requiring midodrine for BP support; Given recent hypotension may need to restart midodrine if hypotension continues - Nephrology following, appreciate recommendations - PRN Hyrdalazine 10 mg IV q3h PRN for SBP > 180, not requiring, discontinued - Can start PO HTN medication if necessary Agree. In addition: Blood pressure borderline low this AM. Restart midodrine if she is persistently hypotensive. T2DM with hyperglycemia Dysphagia - Glucose 207 this AM - increase to Lantus 14 U and Humalog SS with meals - Blood glucose goal to be 140-180 - Continue POC glucose checks - Hypoglycemia protocol - ST following, recommend advancing diet to soft and bite-sized with thin liquids, elevate head of bed as pt tolerates for intake Hx Dementia - Hx of multiple episodes of altered mentation and confusion in past - Mentation appears at baseline - Continue Donepezil 5 mg daily - Continue Baclofen BID to help with mentation - Continue delirium precautions Chronic pain - Scheduled Oxycodone 5 mg BID at SNF - Continue Oxycodone 5 mg q8h PRN for pain, would try to use minimally to avoid encephalopathy and respiratory failure - Continue low dose Gabapentin 100 BID - Continue Baclofen as above - Continue bowel regimen Anemia - Hgb 8.2 this AM (baseline around 10) - Continue to monitor Morbid obesity HLD - BMI greater than 80 - Continue Atovastatin 20 mg daily Hx paroxysmal Afib - Continue daily ASA Dispo: Patient is medically stable for discharge to LTAC, pending placement. [facility] having concerns about transportation to dialysis. Remove PICC line prior to discharge - Goals of Care: FULL CODE - DVT Prophylaxis: HSQ q8h - GI Prophylaxis: Protonix daily - Diet: Minced and Moist; [place] Associated attestation - Jamie Rubio DO - 04/03/2021 4:15 PM EST I have discussed the care of Salazar Coyle with the medical student and/or resident. I have personally taken a history, examined the patient, and performed the associated medical decision making activities. I have reviewed & verified the attested documentation. Unless otherwise noted below, this documentation reflects the history, physical exam, and medical decision making that I performed myself. Please see note for my personal highlights or additions in Green. Patient seen and examined by myself at 0823 on 04/03/21 [place] Changes to Care Plan: -Medically stable for discharge, awaiting placement. Difficulty arranging dialysis due to transport. -Remove PICC prior to discharge. I spent over 51% total time of 15 minutes counseling (or coordinating care). Discussed current plan of care with patient. Coordinated care with resident team. Images from the original note were not included. Med Team Progress Note Salazar Coyle : 1950(70 y.o.) Date: April 02, 2021 Med Team: Alvaro Attending: Joanne Chief Complaint: Chronic R foot wound, altered mental status Subjective: Patient is a 70 y.o. F with PMH T2DM, morbid obesity, chronic R foot wound who presents from facility with pus draining from R foot wound with dressing removal. On 03/13, patient was found to be altered 2/2 CO2 retention and transferred to ICU. Patient underwent I&D 03/15 by orthopedic surgery. Patient mental status improved and was transferred back to floor on 03/21. - No acute events overnight. - Currently, patient laying comfortably in bed. Upset that her breakfast was wrong. -Denies chest pain/shortness of breath /abdominal pain/abdomen/V/fever -Has no other complaints; excited to go to [facility]. -[facility] still has concerns regarding transport to dialysis center. Unclear if they will be able to transport her to and from dialysis Agree with the above. Patient seen and examined at bedside and was resting comfortably. No acute overnight events noted. States that she is currently feeling well. Reports no fever, chills, chest pain, shortness of breath, abdominal pain, nausea, emesis or diarrhea. She reports a good appetite. Notes regular bowel movements. Review of Systems All other systems reviewed and are negative. Scheduled Meds: collagenase Topical Daily Baclofen 5 mg Oral BID insulin glargine 12 Units SubCUTAneous Nightly melatonin 3 mg Oral Nightly acetaminophen 975 mg Oral TID aspirin 81 mg Oral Daily atorvastatin 20 mg Oral Daily calcium-cholecalciferol 1 tablet Oral Daily docusate sodium 100 mg Oral BID donepezil 5 mg Oral Nightly pantoprazole 40 mg Oral QAM AC gabapentin 100 mg Oral BID insulin lispro 0-6 Units SubCUTAneous TID WC mineral oil-hydrophilic petrolatum Topical BID heparin (porcine) 5,000 Units SubCUTAneous 3 times per day sodium chloride flush 10 mL IntraCATHeter Q12H heparin flush 250 Units IntraCATHeter Q12H miconazole Topical BID stomahesive in petrolatum Topical BID sodium chloride flush 5-40 mL IntraVENous 2 times per day Continuous Infusions: sodium chloride dextrose Objective: BP (!) 142/57 Pulse 68 Temp 97.1 F (36.2 C) (Temporal) Resp 16 Ht 5' 2" (1.575 m) Wt (!) 414 lb 11 oz (188.1 kg) SpO2 96% BMI 75.85 kg/m Physical Exam Vitals reviewed. Constitutional: General: She is not in acute distress. Appearance: She is obese. HENT: Head: Normocephalic and atraumatic. Mouth/Throat: Mouth: Mucous membranes are moist. Eyes: Extraocular Movements: Extraocular movements intact. Conjunctiva/sclera: Conjunctivae normal. Pupils: Pupils are equal, round, and reactive to light. Cardiovascular: Rate and Rhythm: Normal rate and regular rhythm. Pulses: Normal pulses. Heart sounds: No murmur heard. Pulmonary: Effort: Pulmonary effort is normal. Breath sounds: No wheezing. Abdominal: General: Bowel sounds are normal. Palpations: Abdomen is soft. Tenderness: There is no abdominal tenderness. Genitourinary: Comments: Jose catheter in place Musculoskeletal: Right lower leg: Edema present. Left lower leg: Edema present. Comments: R foot wound dry and intact with wound vac in place. Skin: General: Skin is warm. Neurological: General: No focal deficit present. Mental Status: She is alert. Mental status is at baseline. Psychiatric: Mood and Affect: Mood normal. Behavior: Behavior normal. [facility] within last 24 hours Lab Results Component Value Date/Time WBC 4.4 04/02/2021 12:54 AM Hemoglobin 8.1 (L) 04/02/2021 12:54 AM Hematocrit 25.6 (L) 04/02/2021 12:54 AM Platelets 217 04/02/2021 12:54 AM MCV 87.6 04/02/2021 12:54 AM Lab Results Component Value Date/Time Sodium 140 04/02/2021 12:54 AM Potassium 3.8 04/02/2021 12:54 AM Chloride 102 04/02/2021 12:54 AM CO2 30 04/02/2021 12:54 AM BUN 16 04/02/2021 12:54 AM CREATININE 1.95 (H) 04/02/2021 12:54 AM Glucose 210 (H) 04/02/2021 12:54 AM Calcium 8.9 04/02/2021 12:54 AM Phosphorus 3.6 04/02/2021 12:54 AM Assessment and Plan: Acute encephalopathy, likely multifactorial from hypercapnia, toxic/metabolic, and medication induced, resolved Acute on chronic hypercapnic respiratory failure Intermittent confusion likely 2/2 delirium Hx COPD - Mentation appears to be at baseline this AM - Patient currently on 4L NC, SpO2>94% - On Gabapentin 100 mg BID given WHITLEY - Continue Oxycodone 5 mg q8h PRN and scheduled acetaminophen, avoid sedating medications - Continue delirium precautions - Consider ABG if mentation worsens, patient is high risk for hypercapnic respiratory failure as noncompliant with CPAP - Patient is medically stable for discharge to facility, however, [facility] and [facility] having concerns regarding transportation to dialysis -will continue to follow up on placement [facility] with ATN with oliguria, on HD MWF - Nephrology following, appreciate recommendations - Tunneled catheter placed by IR on 03/21 - Continue to hold antihypertensives given WHITLEY - HD per nephrology- will continue to follow peripherally Acute on chronic R foot wound with wound cx positive providencia stuartii, pseudomonas, and MRSA Bilateral LE venous stasis Chronic lymphedema - Taken to OR by orthopedic surgery on 03/15 for R foot I&D with wound vac placement - Per orthopedic surgery, good source control obtained in OR - Orthopedic surgery signed off, f/u outpatient (previously scheduled on 03/30/21 at 1:[address] Flores's LEONIDAS, Radha Bergman) - Completed course of IV antibiotics on 03/18/21 - ID signed off, no need for further IV antibiotics, recommend local wound care management - Wound care following, appreciate recommendations, wound dressing changes M/W/F HTN Hypotension, resolved - BP stable, improved since dialysis on 03/24, continue to monitor - Previously requiring midodrine for BP support, discontinued - Nephrology following, appreciate recommendations - Holding all antihypertensives - PRN Hyrdalazine 10 mg IV q3h PRN for SBP > 180, not requiring, discontinued - Can start PO HTN medication if necessary T2DM with hyperglycemia Dysphagia - Glucose 210 this AM - increase to Lantus 14 U and Humalog SS with meals - Blood glucose goal to be 140-180 - Continue POC glucose checks - Hypoglycemia protocol - ST following, recommend advancing diet to soft and bite-sized with thin liquids, elevate head of bed as pt tolerates for intake Hx Dementia - Hx of multiple episodes of altered mentation and confusion in past - Mentation appears at baseline - Continue Donepezil 5 mg daily - Continue Baclofen BID to help with mentation - Continue delirium precautions Chronic pain - Scheduled Oxycodone 5 mg BID at SNF - Continue Oxycodone 5 mg q8h PRN for pain, would try to use minimally to avoid encephalopathy and respiratory failure - Continue low dose Gabapentin 100 BID - Continue Baclofen as above - Continue bowel regimen Anemia - Hgb 8.2 this AM (baseline around 10) - Continue to monitor Morbid obesity HLD - BMI greater than 80 - Continue Atovastatin 20 mg daily Hx paroxysmal Afib - Continue daily ASA Dispo: Patient is medically stable for discharge to LTAC, pending placement. [facility] having concerns about transportation to dialysis. Remove PICC line prior to discharge - Goals of Care: FULL CODE - DVT Prophylaxis: HSQ q8h - GI Prophylaxis: Protonix daily - Diet: Dysphagia - Minced and Moist; Mildly Thick ([place]) Associated attestation - Jamie Rubio DO - 04/02/2021 2:56 PM EST I have discussed the care of Salazar Coyle with the medical student and/or resident. I have personally taken a history, examined the patient, and performed the associated medical decision making activities. I have reviewed & verified the attested documentation. Unless otherwise noted below, this documentation reflects the history, physical exam, and medical decision making that I performed myself. Please see note for my personal highlights or additions in Green. Patient seen and examined by myself on 04/02/21 Arias Changes to Care Plan: -Medically stable for discharge, awaiting placement. -Remove PICC prior to discharge. I spent over 51% total time of 15 minutes counseling (or coordinating care). Discussed current plan of care with patient. Coordinated care with resident team. [facility] Progress Note [facility] [place] Patient: Salazar Coyle Unit/Bed: [facility]/[id number] Date of : 1950 Acct: [id number] Admitting Diagnosis: Right foot infection [L08.9] Subacute osteomyelitis of right foot (HCC) [M86.271] Admit Date: 03/08/2021 Hospital Day: 24 Subjective: Salazar Coyle 70 y.o. year old female who we are seeing in consultation for WHITLEY. All labs / data/ chart and interval events are noted HD today 12 BP has been stable Edema is noted AMS waxing and waining Oliguric Lytes are as expected No other new issues No change in the PFSH at this time Complete ROS otherwise negative Objective: BP (!) 104/56 Pulse 76 Temp 98 F (36.7 C) (Temporal) Resp 12 Ht 5' 2" (1.575 m) Wt (!) 414 lb 11 oz (188.1 kg) SpO2 97% BMI 75.85 kg/m Intake/Output Summary (Last 24 hours) at 04/01/2021 1156 Last data filed at 03/31/2021 1842 Gross per 24 hour Intake 500 ml Output 3725 ml Net -3225 ml General Appearance: NAD, awake, morbidly obese HEENT: NC/AT, kayley JVD d/t body habitus Lungs: Distant , CTA bilaterally, no wheeze, rales or rhonchi, good air entry, good respiratory effort Heart: Heart sounds are regular, No murmur, gallop or rub appreciated Abdomen: +BS, soft, nttp, nd, +abdominal wall edema Extremities: +2 upper and lower bilateral ext edema. Difficult to determine if just obesity vs third spacing. Neurologic: no asterixis, moving all ext Affect: confused Access: RIJ TDC, normal exam Diet: ADULT DIET; Dysphagia - Soft and Bite Sized ADULT ORAL NUTRITION SUPPLEMENT; Breakfast, Dinner; Diabetic Oral Supplement Medications: collagenase Topical Daily Baclofen 5 mg Oral BID insulin glargine 12 Units SubCUTAneous Nightly melatonin 3 mg Oral Nightly acetaminophen 975 mg Oral TID aspirin 81 mg Oral Daily atorvastatin 20 mg Oral Daily calcium-cholecalciferol 1 tablet Oral Daily docusate sodium 100 mg Oral BID donepezil 5 mg Oral Nightly pantoprazole 40 mg Oral QAM AC gabapentin 100 mg Oral BID insulin lispro 0-6 Units SubCUTAneous TID WC mineral oil-hydrophilic petrolatum Topical BID heparin (porcine) 5,000 Units SubCUTAneous 3 times per day sodium chloride flush 10 mL IntraCATHeter Q12H heparin flush 250 Units IntraCATHeter Q12H miconazole Topical BID stomahesive in petrolatum Topical BID sodium chloride flush 5-40 mL IntraVENous 2 times per day Continuous Infusions: sodium chloride dextrose PRN Meds:oxyCODONE, heparin (porcine), heparin (porcine), polyethylene glycol, ipratropium-albuterol, sodium chloride flush, heparin flush, stomahesive in petrolatum, sodium chloride flush, sodium chloride, ondansetron OR ondansetron, glucose, dextrose, glucagon (rDNA), dextrose DVT Prophylaxis: Data: CBC: Recent Labs 12/29/21 0329 12/30/21 0252 12/31/21 0228 WBC 5.6 4.7 4.6 RBC 3.01* 2.95* 2.98* HGB 8.4* 8.2* 8.2* HCT 26.6* 25.9* 26.5* MCV 88.6 87.6 88.7 RDW 18.3* 18.3* 18.7* PLT 219 219 214 BMP: Recent Labs 03/30/2132803/31/2125104/01/21227 NA 138 139 138 K 3.9 4.0 4.2 CL 102 102 101 CO2 28 29 29 PHOS 3.6 4.0 3.4 BUN 12 16 11 CREATININE 2.04* 2.30* 1.72* BNP: No results for input(s): BNP in the last 72 hours. PT/INR: No results for input(s): PROTIME, INR in the last 72 hours. APTT: No results for input(s): APTT in the last 72 hours. CARDIAC ENZYMES: No results for input(s): CKMB, CKMBINDEX, TROPONINT in the last 72 hours. Invalid input(s): CKTOTAL;3 FASTING LIPID PANEL:No results found for: CHOL, HDL, TRIG LIVER PROFILE: No results for input(s): AST, ALT, ALB, BILIDIR, BILITOT, ALKPHOS in the last 72 hours. ABGs: Lab Results Component Value Date PH 7.29 03/23/2021 Assessment/Plan: Salazar Coyle 70 y.o. year old female who we are seeing in consultation for WHITLEY. # WHITLEY/ATN from Normotensive ATN (hypovolemia) on MH TEACHER since 03/17/2021 - Scr as expected, uop picking up? BP stable - HD per MWF schedule - Last HD 03/31, 3L UF tolerated well - Continue to hold acei and diuretics. - UOP oliguric - Renally dose medications for CrCl < 15 - now w/ TDC #HTN - BP stable # Metabolic Encephalopathy suspected from gabapentin/baclofen - Pt with dementia at baseline - Noted on baclofen and gabapentin # Acute on Chronic Resp Acidosis from PHOEBE - Per primary - extubated 03/20 # Acute on Chronic Bilateral lower ext Cellulitis - Off abx - Noted multi gaby on wound culture # Anemia - Hgb stable #DM2 -defer to Primary Noted plans to [facility], [facility], may need peer to peer Will follow peripherally over the weekend Please do no hesitate to call with any questions Pager [phone] Images from the original note were not included. Med Team Progress Note Salazar Coyle : 1950(70 y.o.) Date: April 01, 2021 Med Team: [facility] Attending: Dr. Rubio Chief Complaint: Chronic R foot wound, AMS Subjective: Patient is a 70 y.o. F with PMH T2DM, morbid obesity, chronic R foot wound who presents from facility with pus draining from R foot wound with dressing removal. On 03/13, patient was found to be altered 2/2 CO2 retention and transferred to ICU. Patient underwent I&D 03/15 by orthopedic surgery. Patient mental status improved and was transferred back to floor on 03/21. - No acute events overnight. - Patient denies CP/SOB/Abd pain/N/V/fever. Has no other complaints at this time. Review of Systems Constitutional: Negative for chills and fever. Respiratory: Negative for cough, choking and shortness of breath. Cardiovascular: Negative for chest pain, palpitations and leg swelling. Gastrointestinal: Negative for abdominal pain, constipation, diarrhea, nausea and vomiting. Genitourinary: Negative for difficulty urinating and dysuria. Musculoskeletal: Negative for arthralgias. Skin: Positive for wound (R foot, chronic wound with wound vac in place). Neurological: Negative for dizziness, light-headedness and headaches. Scheduled Meds: collagenase Topical Daily Baclofen 5 mg Oral BID insulin glargine 12 Units SubCUTAneous Nightly melatonin 3 mg Oral Nightly acetaminophen 975 mg Oral TID aspirin 81 mg Oral Daily atorvastatin 20 mg Oral Daily calcium-cholecalciferol 1 tablet Oral Daily docusate sodium 100 mg Oral BID donepezil 5 mg Oral Nightly pantoprazole 40 mg Oral QAM AC gabapentin 100 mg Oral BID insulin lispro 0-6 Units SubCUTAneous TID WC mineral oil-hydrophilic petrolatum Topical BID heparin (porcine) 5,000 Units SubCUTAneous 3 times per day sodium chloride flush 10 mL IntraCATHeter Q12H heparin flush 250 Units IntraCATHeter Q12H miconazole Topical BID stomahesive in petrolatum Topical BID sodium chloride flush 5-40 mL IntraVENous 2 times per day Continuous Infusions: sodium chloride dextrose Objective: BP (!) 153/59 Pulse 71 Temp 97.3 F (36.3 C) (Temporal) Resp 18 Ht 5' 2" (1.575 m) Wt (!) 414 lb 11 oz (188.1 kg) SpO2 98% BMI 75.85 kg/m Physical Exam Vitals reviewed. Constitutional: General: She is not in acute distress. Appearance: She is obese. She is ill-appearing (Chronic). HENT: Head: Normocephalic and atraumatic. Mouth/Throat: Mouth: Mucous membranes are moist. Eyes: Extraocular Movements: Extraocular movements intact. Conjunctiva/sclera: Conjunctivae normal. Pupils: Pupils are equal, round, and reactive to light. Cardiovascular: Rate and Rhythm: Normal rate and regular rhythm. Pulses: Normal pulses. Heart sounds: No murmur heard. Pulmonary: Effort: Pulmonary effort is normal. Breath sounds: No wheezing. Abdominal: General: Bowel sounds are normal. Palpations: Abdomen is soft. Tenderness: There is no abdominal tenderness. Genitourinary: Comments: Jose catheter in place Musculoskeletal: Right lower leg: Edema present. Left lower leg: Edema present. Comments: R foot wound dry and intact with wound vac in place. Skin: General: Skin is warm. Neurological: General: No focal deficit present. Mental Status: She is alert. Mental status is at baseline. Psychiatric: Mood and Affect: Mood normal. Behavior: Behavior normal. [facility] within last 24 hours Lab Results Component Value Date/Time WBC 4.6 04/01/2021 02:28 AM Hemoglobin 8.2 (L) 04/01/2021 02:28 AM Hematocrit 26.5 (L) 04/01/2021 02:28 AM Platelets 214 04/01/2021 02:28 AM MCV 88.7 04/01/2021 02:28 AM Lab Results Component Value Date/Time Sodium 138 04/01/2021 02:28 AM Potassium 4.2 04/01/2021 02:28 AM Chloride 101 04/01/2021 02:28 AM CO2 29 04/01/2021 02:28 AM BUN 11 04/01/2021 02:28 AM CREATININE 1.72 (H) 04/01/2021 02:28 AM Glucose 178 (H) 04/01/2021 02:28 AM Calcium 8.8 04/01/2021 02:28 AM Phosphorus 3.4 04/01/2021 02:28 AM Assessment and Plan: Acute encephalopathy, likely multifactorial from hypercapnia, toxic/metabolic, and medication induced, resolved Acute on chronic hypercapnic respiratory failure Intermittent confusion likely 2/2 delirium Hx COPD - Mentation appears to be at baseline this AM - Patient currently on 4L NC, SpO2>94% - On Gabapentin 100 mg BID given WHITLEY - Continue Oxycodone 5 mg q8h PRN and scheduled acetaminophen, avoid sedating medications - Continue delirium precautions - Consider ABG if mentation worsens, patient is high risk for hypercapnic respiratory failure as noncompliant with CPAP - Patient is medically stable for discharge to facility, however, [facility] having concerns regarding transportation to dialysis WHITLEY with ATN with oliguria, on HD MWF - Nephrology following, appreciate recommendations - Tunneled catheter placed by IR on 03/21 - Continue to hold antihypertensives given WHITLEY - HD per nephrology Acute on chronic R foot wound with wound cx positive providencia stuartii, pseudomonas, and MRSA Bilateral LE venous stasis Chronic lymphedema - Taken to OR by orthopedic surgery on 03/15 for R foot I&D with wound vac placement - Per orthopedic surgery, good source control obtained in OR - Orthopedic surgery signed off, f/u outpatient (previously scheduled on 03/30/21 at 1:[address] Flores's LEONIDAS, Radha Bergman) - Completed course of IV antibiotics on 03/18/21 - ID signed off, no need for further IV antibiotics, recommend local wound care management - Wound care following, appreciate recommendations, wound dressing changes M/W/F HTN Hypotension, resolved - BP stable, improved since dialysis on 03/24, continue to monitor - Previously requiring midodrine for BP support, discontinued - Nephrology following, appreciate recommendations - Holding all antihypertensives - PRN Hyrdalazine 10 mg IV q3h PRN for SBP > 180, not requiring, discontinued - Can start PO HTN medication if necessary T2DM with hyperglycemia Dysphagia - Glucose 165 this AM - Continue Lantus 12 U and Humalog SS with meals - Blood glucose goal to be 140-180 - Continue POC glucose checks - Hypoglycemia protocol - ST following, recommend advancing diet to soft and bite-sized with thin liquids, elevate head of bed as pt tolerates for intake Hx Dementia - Hx of multiple episodes of altered mentation and confusion in past - Mentation appears at baseline - Continue Donepezil 5 mg daily - Continue Baclofen BID to help with mentation - Continue delirium precautions Chronic pain - Scheduled Oxycodone 5 mg BID at SNF - Continue Oxycodone 5 mg q8h PRN for pain, would try to use minimally to avoid encephalopathy and respiratory failure - Continue low dose Gabapentin 100 BID - Continue Baclofen as above - Continue bowel regimen Anemia - Hgb 8.2 this AM (baseline around 10) - Continue to monitor Morbid obesity HLD - BMI greater than 80 - Continue Atovastatin 20 mg daily Hx paroxysmal Afib - Continue daily ASA Dispo: Patient is medically stable for discharge to LTAC, pending placement. [facility] concerns about transportation to dialysis. Remove PICC line prior to discharge - Goals of Care: FULL CODE - DVT Prophylaxis: HSQ q8h - GI Prophylaxis: Protonix daily - Diet: Dysphagia - Minced and Moist; Mildly Thick ([place]) Associated attestation - Jamie Rubio DO - 04/01/2021 2:35 PM EST I have discussed the care of Salazar Coyle with the medical student and/or resident. I have personally taken a history, examined the patient, and performed the associated medical decision making activities. I have reviewed & verified the attested documentation. Unless otherwise noted below, this documentation reflects the history, physical exam, and medical decision making that I performed myself. Please see note for my personal highlights or additions in Green. Patient seen and examined by myself at 0828 on 04/01/21 Arias Changes to Care Plan: -Medically stable for discharge, awaiting placement. -Remove PICC prior to discharge. I spent over 51% total time of 15 minutes counseling (or coordinating care). Discussed current plan of care with patient. Coordinated care with resident team. [facility] Progress Note [facility] [place] Patient: Salazar Coyle Unit/Bed: 1640/613784 Date of : 1950 Acct: [id number] Admitting Diagnosis: Right foot infection [L08.9] Subacute osteomyelitis of right foot (HCC) [M86.271] Admit Date: 03/08/2021 Hospital Day: 23 Subjective: Salazar Coyle 70 y.o. year old female who we are seeing in consultation for WHITLEY. All labs / data/ chart and interval events are noted HD today 03/31 BP has been stable Edema is noted AMS worsening Oliguric Lytes are as expected No other new issues No change in the PFSH at this time Complete ROS otherwise negative Objective: BP (!) 147/41 Pulse 58 Temp 97.4 F (36.3 C) (Temporal) Resp 16 Ht 5' 2" (1.575 m) Wt (!) 414 lb 11 oz (188.1 kg) SpO2 98% BMI 75.85 kg/m Intake/Output Summary (Last 24 hours) at 03/31/2021 1615 Last data filed at 03/31/2021 1255 Gross per 24 hour Intake 620 ml Output 3650 ml Net -3030 ml General Appearance: NAD, awake, morbidly obese HEENT: NC/AT, kayley JVD d/t body habitus Lungs: Distant , CTA bilaterally, no wheeze, rales or rhonchi, good air entry, good respiratory effort Heart: Heart sounds are regular, No murmur, gallop or rub appreciated Abdomen: +BS, soft, nttp, nd, +abdominal wall edema Extremities: +2 upper and lower bilateral ext edema. Difficult to determine if just obesity vs third spacing. Neurologic: no asterixis, moving all ext Affect: confused Access: RIJ TDC, normal exam Diet: ADULT DIET; Dysphagia - Soft and Bite Sized ADULT ORAL NUTRITION SUPPLEMENT; Breakfast, Dinner; Diabetic Oral Supplement Medications: [START ON 04/01/2021] collagenase Topical Daily Baclofen 5 mg Oral BID insulin glargine 12 Units SubCUTAneous Nightly melatonin 3 mg Oral Nightly acetaminophen 975 mg Oral TID aspirin 81 mg Oral Daily atorvastatin 20 mg Oral Daily calcium-cholecalciferol 1 tablet Oral Daily docusate sodium 100 mg Oral BID donepezil 5 mg Oral Nightly pantoprazole 40 mg Oral QAM AC gabapentin 100 mg Oral BID insulin lispro 0-6 Units SubCUTAneous TID WC mineral oil-hydrophilic petrolatum Topical BID heparin (porcine) 5,000 Units SubCUTAneous 3 times per day sodium chloride flush 10 mL IntraCATHeter Q12H heparin flush 250 Units IntraCATHeter Q12H miconazole Topical BID stomahesive in petrolatum Topical BID sodium chloride flush 5-40 mL IntraVENous 2 times per day Continuous Infusions: sodium chloride dextrose PRN Meds:oxyCODONE, heparin (porcine), heparin (porcine), LORazepam, hydrALAZINE, polyethylene glycol, ipratropium-albuterol, sodium chloride flush, heparin flush, stomahesive in petrolatum, sodium chloride flush, sodium chloride, ondansetron OR ondansetron, glucose, dextrose, glucagon (rDNA), dextrose DVT Prophylaxis: Data: CBC: Recent Labs 03/29/21 0115 03/30/21 03203/31/21 0252 WBC 4.7 5.6 4.7 RBC 2.99* 3.01* 2.95* HGB 8.2* 8.4* 8.2* HCT 26.2* 26.6* 25.9* MCV 87.6 88.6 87.6 RDW 18.2* 18.3* 18.3* PLT 218 219 219 BMP: Recent Labs 03/29/21 0115 03/30/21 0329 03/31/21 0252 NA 138 138 139 K 4.1 3.9 4.0 CL 102 102 102 CO2 PHOS 4.4 3.6 4.0 BUN 19 12 16 CREATININE 2.78* 2.04* 2.30* BNP: No results for input(s): BNP in the last 72 hours. PT/INR: No results for input(s): PROTIME, INR in the last 72 hours. APTT: No results for input(s): APTT in the last 72 hours. CARDIAC ENZYMES: No results for input(s): CKMB, CKMBINDEX, TROPONINT in the last 72 hours. Invalid input(s): CKTOTAL;3 FASTING LIPID PANEL:No results found for: CHOL, HDL, TRIG LIVER PROFILE: No results for input(s): AST, ALT, ALB, BILIDIR, BILITOT, ALKPHOS in the last 72 hours. ABGs: Lab Results Component Value Date PH 7.29 03/23/2021 Assessment/Plan: Salazar Coyle 70 y.o. year old female who we are seeing in consultation for WHITLEY. # WHITLEY/ATN from Normotensive ATN (hypovolemia) on MH TEACHER since 03/17/2021 - HD per MWF schedule - Last HD today 03/31, 3L UF tolerated well - Continue to hold acei and diuretics. - UOP oliguric - Renally dose medications for CrCl < 15 - now w/ TDC #HTN - BP likely better after meds - we will monitor # Metabolic Encephalopathy suspected from gabapentin/baclofen - Pt with dementia at baseline - Noted on baclofen and gabapentin # Acute on Chronic Resp Acidosis from PHOEBE - Per primary - extubated 03/20 # Acute on Chronic Bilateral lower ext Cellulitis - Off abx - Noted multi gaby on wound culture # Anemia - Hgb stable #DM2 -defer to Primary [facility]ed [facility], may need peer to peer Placement becoming a problem No further changes Will follow Attending Supervising Physician's Attestation Statement I have personally participated in a [id number] history and physical exam on the date of service. Reviewed chart, vitals and labs. I also participated in medical decision making with nurse practitioner.on the date of service and I agree with all of the pertinent clinical information, assessment and treatment plan. Patient Name: Salazar Coyle Patient : 1950 Acct: [id number] Date of Admission: 03/08/2021 Room/Bed: 1640/081382 Code Status: Full Code Allergies: No Known Allergies Diagnosis: Patient Active Problem List Diagnosis Foot ulcer (HCC) Wounds, multiple Type 2 diabetes mellitus with hyperglycemia (HCC) Cerebrovascular accident (HCC) Recurrent UTI PAF (paroxysmal atrial fibrillation) (HCC) Osteoarthrosis Hypertension Hyperlipemia Degenerative disc disease, cervical Chronic pain Bladder spasm Subacute osteomyelitis of right foot (HCC) Palliative care encounter 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) Morbid obesity with BMI of 60.0-69.9, adult (HCC) Cognitive decline Encephalopathy acute WHITLEY (acute kidney injury) (HCC) Acute respiratory failure (HCC) Acute on chronic respiratory failure with hypercapnia (HCC) Edema Treatment: Hemodilaysis 2:1 Priority: Routine Location: Acute Room Diabetic: Yes NPO: No Isolation Precautions: None Consent for Treatment Verified: Yes Blood Consent Verified: Not Applicable Safety Verified: Identify (I), Consent (C), Equipment (E), HepB Status (B), Orders Complete (O), Access Verified (A) and Timeliness (T) Time out performed prior to access at 0920 hours. Report Received from Primary RN at 0800 hours. Primary RN (First Initial, Last Name, Title): MATHEUS Monreal Incapacitated Nurse Education Completed: Not Applicable HBsAg ONLY: Date Drawn: March 17, 2021 Results: Negative HBsAb: Date Drawn: March 17, 2021 Results: Susceptible <10 Order Dialysis Bath K+ (Potassium): 3 Ca+ (Calcium): 2.5 Na+ (Sodium): 137 HCO3 (Bicarb): 35 Na+ Modeling: Not Applicable Dialyzer: [id number] Dialysate Temperature (C): 36 Blood Flow Rate (BFR): 400 Dialysate Flow Rate (DFR): 600 Access to be Utilized Access: Tunneled Catheter Location: Subclavian Side: Right Needle gauge: Not Applicable + Bruit/Thrill: Not Applicable First Use X-ray Verified: Not Applicable OK to use line order: Not Applicable Site Assessment: Signs and Symptoms of Infection/Inflammation: None If yes: Not Applicable Dressing: Dry and Intact Site Prep: Medical Aseptic Technique Dressing Changed this Treatment: No If yes, by whom: NA - not changed today Date of Last Dressing Change: March 28, [address]?: Yes Red Alcohol Caps in place?: Yes Gauze Dressing?: No Non Dialysis Use?: No Comment: Flows: Good, Patent If access problem, who was notified: Pre and Post-Assessment Patient Vitals for the past 8 hrs: Level of Consciousness Oriented X Heart Rhythm Respiratory Quality/Effort O2 Device Bilateral Breath Sounds Skin Color Skin Condition/Temp Abdomen Inspection Bowel Sounds (All Quadrants) Edema Edema Generalized Pain Level 03/31/21 0800 Alert (0) Unlabored Appropriate for ethnicity Dry;Swollen Soft;Distended Generalized;Right lower extremity;Left lower extremity +2;Pitting 03/31/21 0822 3 03/31/21 0924 Alert (0) 2 Regular Unlabored Nasal cannula Clear Appropriate for ethnicity Dry;Swollen;Warm Soft Active Generalized +2;+3;Pitting 03/31/21 1059 6 03/31/21 1255 Clear Generalized +2;+3;Pitting 03/31/21 1316 Nasal cannula 03/31/21 1329 0 Labs Recent Labs 03/29/21 0115 03/30/21 0329 03/31/21 0252 WBC 4.7 5.6 4.7 HGB 8.2* 8.4* 8.2* HCT 26.2* 26.6* 25.9* PLT 218 219 219 Recent Labs 03/29/21 0115 03/30/21 0329 03/31/21 0252 NA 138 138 139 K 4.1 3.9 4.0 CL 102 102 102 CO2 29 28 29 BUN 19 12 16 CREATININE 2.78* 2.04* 2.30* GLUCOSE 185* 164* 185* IV Drips and Rate/Dose sodium chloride dextrose Safety - Before each treatment: Dialysis Machine No.: [id number] RO Machine No.: [id number] Dialyzer Lot No.: [id number] RO Machine Log Sheet Completed: Yes Machine Alarm Self Test: Completed;Passed (03/31/21 0807) Machine Autotest: Completed,Passed Air Foam Detector: Tested,Proper Function,pH Reading Extracorporeal Circuit Tested for Integrity: Yes Machine Conductivity: 14.0 Manual Conductivity: 13.8 Machine Ph: 7 Bicarbonate Concentrate Lot No.: [id number] Acid Concentrate Lot No.: [id number] Manual Ph: 7 Bleach Test (Neg): Yes Bath Temperature: 96.8 F (36 C) Tubing Lot#: [id number] Conductivity Meter Serial #: [id number] [employer] Secure?: Yes Venous Parameters Set?: Yes Arterial Parameters Set?: Yes Saline Line Double Clamped?: Yes Air Foam Detector Engaged?: Yes Machine Functioning Alarm Free? Yes Prime Given: 200ml Chlorine Testing - Before each treatment and every 4 hours: Treatment Treatment Number: 3 Time On: 923 Time Off: 1254 Treatment Goal: 3-4L Weight: (!) 414 lb 11 oz (188.1 kg) (03/30/21 0254) 1st check: less than 0.1 ppm at: 0845 hours 2nd check: less than 0.1 ppm at: 1145 hours 3rd check: Not Applicable (if greater than 0.1 ppm, then check every 30 minutes from secondary) Access Flows and Pressures Patient Vitals for the past 8 hrs: Blood Flow Rate (ml/min) Ultrafiltration Rate (ml/hr) Ultrafiltration Total Arterial Pressure (mmHg) Venous Pressure (mmHg) TMP DFR Comments Access Visible 03/31/21 0924 200 ml/min 1000 ml/hr 13 ml -20 mmHg 30 70 600 Tx intiated Yes 03/31/21 0925 400 ml/min 1000 ml/hr 22 ml -90 mmHg 110 50 600 Bfr increased Yes 03/31/21 0930 400 ml/min 1000 ml/hr 130 ml -90 mmHg 120 50 600 pt stable Yes 03/31/21 0945 400 ml/min 1000 ml/hr 515 ml -90 mmHg 120 50 600 pt resting Yes 03/31/21 1000 400 ml/min 1000 ml/hr 628 ml -90 mmHg 120 50 600 pt resting Yes 03/31/21 1015 400 ml/min 1000 ml/hr 997 ml -110 mmHg 130 50 600 pt stable Yes 03/31/21 1030 400 ml/min 1000 ml/hr 1251 ml -110 mmHg 130 50 600 pt stable Yes 03/31/21 1045 400 ml/min 1000 ml/hr 1422 ml -110 mmHg 130 50 600 Pt stable Yes 03/31/21 1100 400 ml/min 1000 ml/hr 1718 ml -110 mmHg 130 50 600 pt resting Yes 03/31/21 1115 400 ml/min 1000 ml/hr 1943 ml -110 mmHg 130 50 600 pt stable Yes 03/31/21 1130 400 ml/min 1000 ml/hr 2150 ml -110 mmHg 130 50 600 pt stable Yes 03/31/21 1145 400 ml/min 1000 ml/hr 2378 ml -110 mmHg 130 40 600 pt resting Yes 03/31/21 1200 400 ml/min 1000 ml/hr 2818 ml -110 mmHg 130 20 600 pt stable Yes 03/31/21 1215 400 ml/min 1000 ml/hr 2877 ml -110 mmHg 130 20 600 pt resting Yes 03/31/21 1230 400 ml/min 1000 ml/hr 3097 ml -110 mmHg 140 40 600 pt stable Yes 03/31/21 1245 400 ml/min 1000 ml/hr 3315 ml -110 mmHg 150 30 600 pt stable Yes 03/31/21 1254 3500 ml Tx completed Yes Vital Signs Patient Vitals for the past 8 hrs: BP Temp Pulse Resp SpO2 03/31/21 0734 98/75 98.3 F (36.8 C) 76 15 95 % 03/31/21 0921 (!) 96/46 98.5 F (36.9 C) 81 16 96 % 03/31/21 0924 (!) 113/37 78 03/31/21 0925 (!) 123/48 61 03/31/21 0930 (!) 132/34 81 03/31/21 0945 (!) 117/27 57 03/31/21 1000 (!) 122/31 59 03/31/21 1015 (!) 113/36 57 03/31/21 1030 (!) 129/43 55 03/31/21 1045 (!) 139/30 59 03/31/21 1100 (!) 105/27 59 03/31/21 1115 (!) 147/37 68 03/31/21 1130 (!) 145/37 65 03/31/21 1145 (!) 147/37 68 03/31/21 1200 (!) 138/54 65 03/31/21 1215 (!) 151/48 63 03/31/21 1230 (!) 142/40 65 03/31/21 1245 (!) 142/41 59 03/31/21 1254 (!) 152/42 97.2 F (36.2 C) 57 03/31/21 1255 (!) 151/47 65 03/31/21 1316 (!) 147/41 97.4 F (36.3 C) 58 16 98 % Post-Dialysis Arterial Catheter Locking Solution: Heparin (1000units:1ml) Volume (ml): 2.1 Venous Catheter Locking Solution: Heparin (1000units:1ml) Volume (ml): 2.2 Post-Treatment Procedures: Blood returned,Catheter capped, clamped and heparinized x 2 ports Machine Disinfection Process: Exterior Machine Disinfection Rinseback Volume (ml): 300 ml Total Liters Processed (l/min): 80.7 l/min Dialyzer Clearance: Lightly streaked Duration of Treatment (minutes): 210 minutes Hemodialysis Intake (ml): 500 ml Hemodialysis Output (ml): 3500 ml NET Removed (ml): 3000 ml Tolerated Treatment: Good Patient Response to Treatment: pt tolerated tx well Physician Notified?: No Provider Notification Provider Notification Reason for Communication: Evaluate;Review case;New orders (03/20/21 1037) Provider Name: Dr Garner (03/20/21 1037) Provider Notification: Physician (03/20/21 1037) Method of Communication: Call (03/20/21 1037) Response: Other (Comment) (stop tx d/t cvc not working) (03/20/21 1037) Notification Time: 1037 (03/20/21 1037) Handoff complete and report given to Primary RN at 1305 hours. Primary RN (First Initial, Last Name, Title): MATHEUS Monreal Education Person Educated: Patient Knowledge Base: Substantial Barriers to Learning?: None Preferred method of Learning: Oral Topic(s): Access Care, Signs and Symptoms of Infection and Fluid Management Teaching Tools: Explanation Response to Education: Verbalized Understanding Images from the original note were not included. Med Team Progress Note Salazar Coyle : 1950(70 y.o.) Date: March 31, 2021 Med Team: Alvaro Attending: Dr. Rubio Chief Complaint: Chronic R foot wound, AMS Subjective: Patient is a 70 y.o. F with PMH T2DM, morbid obesity, chronic R foot wound who presents from facility with pus draining from R foot wound with dressing removal. On 03/13, patient was found to be altered 2/2 CO2 retention and transferred to ICU. Patient underwent I&D 03/15 by orthopedic surgery. Patient mental status improved and was transferred back to floor on 03/21. - No acute events overnight. - This morning, patient states that she is doing well. Patient has no new complaints this morning. Denies chest pain, shortness of breath, fever, chills, and abdominal pain. Does endorse mild R foot pain, unchanged. Patient informed of plan for placement and to continue dialysis. Patient states that she would like to return to [facility] if possible. Informed patient that social work is working hard to see if she can return to [facility] vs. [facility] and will be updated with any available information. Patient voiced understanding. Agree with the above. No acute overnight events noted. Patient states that she is currently feeling well. Does no right foot pain and asking when she is due for pain medication. Would like to return to [facility] if she is able. Review of Systems Constitutional: Negative for chills and fever. Respiratory: Negative for cough, choking and shortness of breath. Cardiovascular: Negative for chest pain, palpitations and leg swelling. Gastrointestinal: Negative for abdominal pain, constipation, diarrhea, nausea and vomiting. Genitourinary: Negative for difficulty urinating and dysuria. Musculoskeletal: Negative for arthralgias. Skin: Positive for wound (R foot, chronic wound with wound vac in place). Neurological: Negative for dizziness, light-headedness and headaches. Scheduled Meds: [START ON 04/01/2021] collagenase Topical Daily Baclofen 5 mg Oral BID insulin glargine 12 Units SubCUTAneous Nightly melatonin 3 mg Oral Nightly acetaminophen 975 mg Oral TID aspirin 81 mg Oral Daily atorvastatin 20 mg Oral Daily calcium-cholecalciferol 1 tablet Oral Daily docusate sodium 100 mg Oral BID donepezil 5 mg Oral Nightly pantoprazole 40 mg Oral QAM AC gabapentin 100 mg Oral BID insulin lispro 0-6 Units SubCUTAneous TID WC mineral oil-hydrophilic petrolatum Topical BID heparin (porcine) 5,000 Units SubCUTAneous 3 times per day sodium chloride flush 10 mL IntraCATHeter Q12H heparin flush 250 Units IntraCATHeter Q12H miconazole Topical BID stomahesive in petrolatum Topical BID sodium chloride flush 5-40 mL IntraVENous 2 times per day Continuous Infusions: sodium chloride dextrose Objective: BP (!) 141/65 Pulse 75 Temp 97.4 F (36.3 C) (Temporal) Resp 16 Ht 5' 2" (1.575 m) Wt (!) 414 lb 11 oz (188.1 kg) SpO2 96% BMI 75.85 kg/m Physical Exam Vitals reviewed. Constitutional: General: She is not in acute distress. Appearance: She is obese. She is ill-appearing (Chronic). Comments: Patient resting comfortably in bed. HENT: Head: Normocephalic and atraumatic. Mouth/Throat: Mouth: Mucous membranes are moist. Eyes: Extraocular Movements: Extraocular movements intact. Conjunctiva/sclera: Conjunctivae normal. Pupils: Pupils are equal, round, and reactive to light. Cardiovascular: Rate and Rhythm: Normal rate and regular rhythm. Pulses: Normal pulses. Heart sounds: No murmur heard. Pulmonary: Effort: Pulmonary effort is normal. Breath sounds: No wheezing. Abdominal: General: Bowel sounds are normal. Palpations: Abdomen is soft. Tenderness: There is no abdominal tenderness. Genitourinary: Comments: Jose catheter in place Musculoskeletal: Right lower leg: Edema present. Left lower leg: Edema present. Comments: R foot wound cool, dry, and intact with wound vac in place. Skin: General: Skin is warm. Neurological: General: No focal deficit present. Mental Status: She is alert. Mental status is at baseline. Psychiatric: Mood and Affect: Mood normal. Behavior: Behavior normal. [facility] within last 24 hours Lab Results Component Value Date/Time WBC 4.7 03/31/2021 02:52 AM Hemoglobin 8.2 (L) 03/31/2021 02:52 AM Hematocrit 25.9 (L) 03/31/2021 02:52 AM Platelets 219 03/31/2021 02:52 AM MCV 87.6 03/31/2021 02:52 AM Lab Results Component Value Date/Time Sodium 139 03/31/2021 02:52 AM Potassium 4.0 03/31/2021 02:52 AM Chloride 102 03/31/2021 02:52 AM CO2 29 03/31/2021 02:52 AM BUN 16 03/31/2021 02:52 AM CREATININE 2.30 (H) 03/31/2021 02:52 AM Glucose 185 (H) 03/31/2021 02:52 AM Calcium 8.8 03/31/2021 02:52 AM Phosphorus 4.0 03/31/2021 02:52 AM Assessment and Plan: Acute encephalopathy, likely multifactorial from hypercapnia, toxic/metabolic, and medication induced, resolved Acute on chronic hypercapnic respiratory failure Intermittent confusion likely 2/2 delirium Hx COPD - Mentation appears to be at baseline this AM - Patient currently on 4L NC, SpO2>94% - On Gabapentin 100 mg BID given WHITLEY - Continue Oxycodone 5 mg q8h PRN and scheduled acetaminophen, avoid sedating medications - Continue delirium precautions - Consider ABG if mentation worsens, patient is high risk for hypercapnic respiratory failure as noncompliant with CPAP - Patient is medically stable for discharge to facility, however, [facility] having concerns regarding transportation to dialysis Productive cough, improved - Reported new productive cough overnight on 03/26 - SpO2>94% on 3L NC, other VSS, afebrile - WBC 4.7 this AM - CXR (03/26) remarkable for LLL infiltrate and/or atelectasis, increased from prior exam - Evaluated by RT, decreased DuoNebs to TID - Incentive spirometry bedside - Low concern for infectious process given down-trending WBC and stable clinically WHITLEY with ATN with oliguria, on HD MWF - Cr 2.30 from 2.04 yesterday - Nephrology following, appreciate recommendations - Tunneled catheter placed by IR on 03/21 - Dialysis on 03/29 with removal of 3 L - Dialysis today - Continue to hold antihypertensives given WHITLEY 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 Flores's LEONIDAS, Radha Bergman - Completed course of IV antibiotics on 03/18/21 - ID signed off, no need for further IV antibiotics, recommend local wound care management - Wound care following, appreciate recommendations, wound dressing changes M/W/F, has PRN Ativan for wound dressing changes only HTN Hypotension - Fluctuating BPs while in ICU, 98/75 this AM - BP improved since dialysis on 03/24, continue to monitor - Discontinued midodrine given SBPs elevated at 160s-200s 03/29-03/30 - Nephrology following, appreciate recommendations - Holding all antihypertensives - PRN Hyrdalazine 10 mg IV q3h PRN for SBP > 180 T2DM with hyperglycemia Dysphagia - Glucose 165 this AM - Continue Lantus 12 U and Humalog SS with meals - Blood glucose goal to be 140-180 - Continue POC glucose checks - Hypoglycemia protocol - ST following, recommend advancing diet to soft and bite-sized with thin liquids, elevate head of bed as pt tolerates for intake Hx Dementia - Hx of multiple episodes of altered mentation and confusion in past - Mentation appears at baseline - Continue Donepezil 5 mg daily - Continue Baclofen BID to help with mentation - Continue delirium precautions Chronic pain - Scheduled Oxycodone 5 mg BID at SNF - Continue Oxycodone 5 mg q8h PRN for pain, would try to use minimally to avoid encephalopathy and respiratory failure - Continue low dose Gabapentin 100 BID - Continue Baclofen as above - Continue bowel regimen Anemia - Hgb 8.2 this AM (baseline around 10) - Continue to monitor Morbid obesity HLD - BMI greater than 80 - Continue Atovastatin 20 mg daily Hx paroxysmal Afib - Continue daily ASA Dispo: Patient is medically stable for discharge to LTAC, pending placement. [facility] and [facility] having concerns about transportation to dialysis. Remove PICC line prior to discharge - Goals of Care: FULL CODE - DVT Prophylaxis: HSQ q8h - GI Prophylaxis: Protonix daily - Diet: Dysphagia - Minced and Moist; Mildly Thick ([place]) Associated attestation - Jamie Rubio DO - 03/31/2021 3:00 PM EST I have discussed the care of Salazar Coyle with the medical student and/or resident. I have personally taken a history, examined the patient, and performed the associated medical decision making activities. I have reviewed & verified the attested documentation. Unless otherwise noted below, this documentation reflects the history, physical exam, and medical decision making that I performed myself. Please see note for my personal highlights or additions in Green. Patient seen and examined by myself at 0908 on 03/31/21 [place] Changes to Care Plan: -Medically stable for discharge, awaiting placement. -Remove PICC line prior to discharge. I spent over 51% total time of 15 minutes counseling (or coordinating care). Discussed current plan of care with patient. Coordinated care with resident team. Paged doctor about shift output being 150 ml. Comprehensive Nutrition Assessment Type and Reason for Visit: Reassess Nutrition Recommendations/Plan: 1. Continue with dysphagia soft and bite sized. PO intake appears poor based on flow sheets as consuming < 50% of her meals. Monitor need for CHO Control/renal diet restrictions. 2. Per MNT protocol will send chocolate Ensure HP BID (8 oz provides 160 kcals, 16 gm protein). 3. Recommend daily weights. 4. Monitor weight, labs, I/O, skin assessment, and overall nutritional status. RD will follow up. Nutrition Assessment: Patient with WHITLEY/ATN from normotensive ATN (hypovolemia) on MH TEACHER since 03/17/2021. Acute encephalopathy likely multifactorial from hypercapnia, toxic/metabolic, and medications induced (gabapentin/baclofen). Noted mentation at baseline this am. Wound care is following. LASER PRINTING OPERATOR recommending soft and bites sized with thin liquids. Patient is confused at times. She is having difficulty with phone which RD assisted. Patient reports that staff fed her this morning- eggs and cream of wheat. Patient unable to recall if she ate lunch today. Flow sheets indicate that patient consuming < 50% of her meals. Encouraged high protein foods for healing and dialysis with patient. Patient states that she likes to eat fish and meat. Does not like fish. She is agreeable to an oral nutrition supplement- chocolate. . Malnutrition Assessment: Malnutrition Status: At risk for malnutrition (Comment) Context: Acute Illness Findings of the 6 clinical characteristics of malnutrition: Energy Intake: Mild decrease in energy intake (Comment)- Flow sheets indicate patient is consuming < 50% of her meals. Also, her mentation, renal function, and assist with feeds are affecting her oral intake. Weight Loss: (Patient does not know her UBW. Question accuracy of current weight (415 lbs) based previous weights this admission (432-440 lbs).) Body Fat Loss: No significant body fat loss Muscle Mass Loss: No significant muscle mass loss Fluid Accumulation: 7 - Moderate to Severe Dry Cleaning Manager Strength: Not Performed Estimated Daily Nutrient Needs: Energy (kcal): 22-25 kcals/kg IBW = 5207-4680 kcals/day; Weight Used for Energy Requirements: [place] Protein (g): 1.2-1.4g = 60-70g protein/day; Weight Used for Protein Requirements: [place] Fluid (ml/day): per MD; Method Used for Fluid Requirements: Other (Comment) Nutrition Related Findings: Alex =12, abdomen soft, active bowel sounds, 03/26 BM, + 3 BUE and BLE edema, I/O: -7412 (since 03/16), 03/29 HD: 3K+ Bath, 3000 ml net removed. Meds: Lipitor, Lioresal, Calcium-Cholecalciferol, Colace, Aricept, Insulin, Melatonin, Proamatine, Protonix. BMP: Recent Labs 03/28/21 0006 03/28/21 0954 03/29/21 0115 03/30/21 0329 NA -- 139 138 138 K -- 3.7 4.1 3.9 CL -- 102 102 102 CO2 -- 28 BUN -- 16 19 12 CREATININE -- 2.65* 2.78* 2.04* GLUCOSE -- 164* 185* 164* CALCIUM -- 8.7 8.8 8.7 PHOS 3.7 -- 4.4 3.6 HEPATIC: No results for input(s): AST, ALT, ALB, BILITOT, ALKPHOS in the last 72 hours. Wounds: Pressure Injury,Stage II,Wound Vac Current Nutrition Therapies: ADULT DIET; Dysphagia - Soft and Bite Sized Anthropometric Measures: Height: 5' 2" (157.5 cm) Current Body Weight: 415 lb 12.6 oz (188.6 kg) (bed scale by RD which includes wound vac) Admission Body Weight: 400 lb (181.4 kg) (initially stated) Usual Body Weight: (No recent weight hx in chart to review, noted pt started on HD this admit) [place] Body Weight: 110 lbs; Nutrition Interventions: Food and/or Nutrient Delivery: Continue Current Diet,Start Oral Nutrition Supplement Nutrition Education/Counseling: Education not appropriate Coordination of Nutrition Care: Continue to monitor while inpatient,Speech Therapy Goals: Patient consume adequate nutrition to supports needs for dialysis and healing. Nutrition Monitoring and Evaluation: Behavioral-Environmental Outcomes: None Identified Food/Nutrient Intake Outcomes: Diet Advancement/Tolerance,Food and Nutrient Intake,Supplement Intake Physical Signs/Symptoms Outcomes: Biochemical Data,Chewing or Swallowing,GI Status,Fluid Status or Edema,Meal Time Behavior,Nutrition Focused Physical Findings,Skin,Weight Discharge Planning: Too soon to determine Contact: Pager [phone] Images from the original note were not included. Wound Care follow up visit: (focused assessment: Right plantar foot wound VAC dressing change) Upon arrival to pt's room, pt began yelling"you can't lift my leg, oh my God, you can't lift it". Reassurance offered, but pt continued to yell out. Pt premedicated per medical staff services manager with oral pain medication and IV Ativan prior to wound VAC dressing change. Old wound VAC dressing soaked with saline and removed without difficulties from Right plantar foot. No active bleeding noted. Right plantar foot with full thickness surgical wound (see 03/28 progress note for measurements) with 60% pink-red tissues, 40% [place]-brown and exposed bone. (see photo below) Periwound clear, no erythema or induration. Small amount of serosang drainage noted in old canister. No purulence noted. Wound and periwound cleansed with saline, patted dry and cavilon no sting applied to periwound. 1 piece of white foam applied over bone, topped with 1 piece of black foam. Trac pad bridged to dorsal foot. Adapt ring used along base of toes to help achieve/maintain seal. Wound VAC well sealed at 125 mmHg continuous suction. Secured with kerlix. Pt tolerated the dressing ok but was extremely anxious about lifting her leg and screamed out when kerlix applied. Pt refuses HeelMedix boots or to have heel elevated off the bed. Tips of right great toe and 4th toe with dry eschars. Cleansed with saline, patted dry. Right plantar heel with Stage 2 pressure injury (difficult to fully assess due to pt not allowing her leg to be lifted.)[place] tissues with surrounding pink epithelial tissues. Periwound clear. No purulence. Cleansed with saline, patted dry, and covered with mepilex 4x4 foam dressing. Padded with ABD and secured with kerlix. Would recommend to remove wound VAC from right plantar foot on Sunday 04/01 and start Santyl ointment with saline moist gauze Daily over the weekend. D/W medical staff services manager. Notified Orthopedic resident of plan for dressing changes over and reapplication of VAC Sunday. Wound Care will continue to follow pt for wound VAC and reapply on Tuesday 04/04. Please page Wound Care Team for any questions or concerns at pager [phone]. [facility] Progress Note [facility] [place] Patient: Salazar Coyle Unit/Bed: 1640/619618 Date of : 1950 Acct: [id number] Admitting Diagnosis: Right foot infection [L08.9] Subacute osteomyelitis of right foot (HCC) [M86.271] Admit Date: 03/08/2021 Hospital Day: 22 Subjective: Salazar Coyle 70 y.o. year old female who we are seeing in consultation for WHITLEY. All labs / data/ chart and interval events are noted HD yesterday BP has been stable, high this morning Edema is noted AMS worsening Oliguric Lytes are as expected No other new issues No change in the PFSH at this time Complete ROS otherwise negative Objective: BP (!) 172/86 Pulse 87 Temp 98.4 F (36.9 C) (Temporal) Resp 18 Ht 5' 2" (1.575 m) Wt (!) 414 lb 11 oz (188.1 kg) SpO2 99% BMI 75.85 kg/m Intake/Output Summary (Last 24 hours) at 03/30/2021 1116 Last data filed at 03/30/2021 0827 Gross per 24 hour Intake 500 ml Output 4800 ml Net -4300 ml General Appearance: NAD, awake, morbidly obese HEENT: NC/AT, kayley JVD d/t body habitus Lungs: Distant , CTA bilaterally, no wheeze, rales or rhonchi, good air entry, good respiratory effort Heart: Heart sounds are regular, No murmur, gallop or rub appreciated Abdomen: +BS, soft, nttp, nd, +abdominal wall edema Extremities: +2 upper and lower bilateral ext edema. Difficult to determine if just obesity vs third spacing. Neurologic: no asterixis, moving all ext Affect: confused Access: RIJ TDC, normal exam Diet: ADULT DIET; Dysphagia - Soft and Bite Sized Medications: Baclofen 5 mg Oral BID insulin glargine 12 Units SubCUTAneous Nightly melatonin 3 mg Oral Nightly acetaminophen 975 mg Oral TID aspirin 81 mg Oral Daily atorvastatin 20 mg Oral Daily calcium-cholecalciferol 1 tablet Oral Daily docusate sodium 100 mg Oral BID donepezil 5 mg Oral Nightly pantoprazole 40 mg Oral QAM AC midodrine 5 mg Oral TID gabapentin 100 mg Oral BID insulin lispro 0-6 Units SubCUTAneous TID WC mineral oil-hydrophilic petrolatum Topical BID heparin (porcine) 5,000 Units SubCUTAneous 3 times per day sodium chloride flush 10 mL IntraCATHeter Q12H heparin flush 250 Units IntraCATHeter Q12H miconazole Topical BID stomahesive in petrolatum Topical BID sodium chloride flush 5-40 mL IntraVENous 2 times per day Continuous Infusions: sodium chloride dextrose PRN Meds:heparin (porcine), heparin (porcine), LORazepam, oxyCODONE, hydrALAZINE, polyethylene glycol, ipratropium-albuterol, sodium chloride flush, heparin flush, stomahesive in petrolatum, sodium chloride flush, sodium chloride, ondansetron OR ondansetron, glucose, dextrose, glucagon (rDNA), dextrose DVT Prophylaxis: Data: CBC: Recent Labs 03/28/21 0006 03/29/21 0115 03/30/219 WBC 5.9 4.7 5.6 RBC 2.94* 2.99* 3.01* HGB 8.1* 8.2* 8.4* HCT 26.1* 26.2* 26.6* MCV 88.7 87.6 88.6 RDW 17.7* 18.2* 18.3* PLT 210 218 219 BMP: Recent Labs 03/28/21 0006 03/28/21 0954 03/29/21 0115 03/30/219 NA -- 139 138 138 K -- 3.7 4.1 3.9 CL -- 102 102 102 CO2 -- PHOS 3.7 -- 4.4 3.6 BUN -- CREATININE -- 2.65* 2.78* 2.04* BNP: No results for input(s): BNP in the last 72 hours. PT/INR: No results for input(s): PROTIME, INR in the last 72 hours. APTT: No results for input(s): APTT in the last 72 hours. CARDIAC ENZYMES: No results for input(s): CKMB, CKMBINDEX, TROPONINT in the last 72 hours. Invalid input(s): CKTOTAL;3 FASTING LIPID PANEL:No results found for: CHOL, HDL, TRIG LIVER PROFILE: No results for input(s): AST, ALT, ALB, BILIDIR, BILITOT, ALKPHOS in the last 72 hours. ABGs: Lab Results Component Value Date PH 7.29 03/23/2021 Assessment/Plan: Salazar Coyle 70 y.o. year old female who we are seeing in consultation for WHITLEY. # WHITLEY/ATN from Normotensive ATN (hypovolemia) on MH TEACHER since 03/17/2021 - HD per MWF schedule - Last HD yesterday, 3L UF tolerated well, next tomorrow - Continue to hold acei and diuretics. - UOP oliguric - Renally dose medications for CrCl < 15 - now w/ TDC #HTN - BP likely better after meds - we will monitor # Metabolic Encephalopathy suspected from gabapentin/baclofen - Pt with dementia at baseline - Noted on baclofen and gabapentin # Acute on Chronic Resp Acidosis from PHOEBE - Per primary - extubated 03/20 # Acute on Chronic Bilateral lower ext Cellulitis - Off abx - Noted multi gaby on wound culture # Anemia - Hgb stable #DM2 -defer to Primary [facility]ed [facility], [facility], may need peer to peer No further changes Will follow Attending Supervising Physician's Attestation Statement I have personally participated in a [id number] history and physical exam on the date of service. Reviewed chart, vitals and labs. I also participated in medical decision making with nurse practitioner.on the date of service and I agree with all of the pertinent clinical information, assessment and treatment plan. Speech Language Pathology Facility/Department: [address] Dysphagia Treatment Note NAME: Salazar Coyle : 1950 Patient Diagnosis(es): Patient Active Problem List Diagnosis Foot ulcer (HCC) Wounds, multiple Type 2 diabetes mellitus with hyperglycemia (HCC) Cerebrovascular accident (HCC) Recurrent UTI PAF (paroxysmal atrial fibrillation) (HCC) Osteoarthrosis Hypertension Hyperlipemia Degenerative disc disease, cervical Chronic pain Bladder spasm Subacute osteomyelitis of right foot (HCC) Palliative care encounter 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) Morbid obesity with BMI of 60.0-69.9, adult (HCC) Cognitive decline Encephalopathy acute WHITLEY (acute kidney injury) (HCC) Acute respiratory failure (HCC) Acute on chronic respiratory failure with hypercapnia (HCC) Edema Allergies: No Known Allergies Onset Date: 03/08/2021 Oxygen Level: 4 liters nasal cannula Current Diet Level: Soft and bite sized with thin liquids Pain: RN managing S: Patient alert and reported no difficulty with current diet level (RN confirms). O: assess diet tolerance A: Patient refused to have HOB raised and refused all offers of thin liquid. Patient did agree to soft solids. Mastication was timely and no signs/symptoms of aspiration with PO presented. [x] Goal met [] Progressing as expected [] Progressing slower than expected [] Medical status inhibits participation [] Goals not addressed this session [] Goals revised this session [] Unable to show any progress towards functional goals [] Progress towards functional goal is gradual / fair P: Recommend continue a soft and bite sized diet with thin liquids. Will discontinue dysphagia therapy as goals have been met and patient at max diet potential this admission. Time out: 1000 Session time: 10 minutes An N95 mask, face shield, and gloves were worn throughout this session. Images from the original note were not included. Med Team Progress Note Salazar Coyle : 1950(70 y.o.) Date: March 30, 2021 Med Team: Alvaro Attending: Dr. Rubio Chief Complaint: Chronic R foot wound, AMS Subjective: Patient is a 70 y.o. F with PMH T2DM, morbid obesity, chronic R foot wound who presents from facility with pus draining from R foot wound with dressing removal. On 03/13, patient was found to be altered 2/2 CO2 retention and transferred to ICU. Patient underwent I&D 03/15 by orthopedic surgery. Patient mental status improved and was transferred back to floor on 03/21. - No acute events overnight. - This morning, patient is resting comfortably in bed. Patient has no new complaints this AM. Patient denies SOB, chest pain, abdominal pain, fever, and chills. Patient states that she is doing well. Informed patient of discharge plan with placement. Patient states that she would like to go back to [facility] if possible. Agree with the above. Patient seen and examined at bedside and was resting comfortably. No acute overnight events noted. Patient states that she is currently feeling well and has no complaints at this time. Pain is well controlled unless dressings are being changed. Review of Systems Constitutional: Negative for chills and fever. Respiratory: Negative for cough, choking and shortness of breath. Cardiovascular: Negative for chest pain, palpitations and leg swelling. Gastrointestinal: Negative for abdominal pain, constipation, diarrhea, nausea and vomiting. Genitourinary: Negative for difficulty urinating and dysuria. Musculoskeletal: Positive for arthralgias (R foot, chronic wound present with wound vac in place). Neurological: Negative for dizziness, light-headedness and headaches. Scheduled Meds: Baclofen 5 mg Oral BID insulin glargine 12 Units SubCUTAneous Nightly melatonin 3 mg Oral Nightly acetaminophen 975 mg Oral TID aspirin 81 mg Oral Daily atorvastatin 20 mg Oral Daily calcium-cholecalciferol 1 tablet Oral Daily docusate sodium 100 mg Oral BID donepezil 5 mg Oral Nightly pantoprazole 40 mg Oral QAM AC midodrine 5 mg Oral TID gabapentin 100 mg Oral BID insulin lispro 0-6 Units SubCUTAneous TID WC mineral oil-hydrophilic petrolatum Topical BID heparin (porcine) 5,000 Units SubCUTAneous 3 times per day sodium chloride flush 10 mL IntraCATHeter Q12H heparin flush 250 Units IntraCATHeter Q12H miconazole Topical BID stomahesive in petrolatum Topical BID sodium chloride flush 5-40 mL IntraVENous 2 times per day Continuous Infusions: sodium chloride dextrose Objective: BP (!) 160/64 Pulse 75 Temp 97.1 F (36.2 C) (Temporal) Resp 18 Ht 5' 2" (1.575 m) Wt (!) 414 lb 11 oz (188.1 kg) SpO2 96% BMI 75.85 kg/m Physical Exam Constitutional: General: She is not in acute distress. Appearance: She is obese. She is ill-appearing (Chronic). HENT: Head: Normocephalic and atraumatic. Mouth/Throat: Mouth: Mucous membranes are moist. Eyes: Extraocular Movements: Extraocular movements intact. Conjunctiva/sclera: Conjunctivae normal. Pupils: Pupils are equal, round, and reactive to light. Cardiovascular: Rate and Rhythm: Normal rate and regular rhythm. Pulses: Normal pulses. Heart sounds: No murmur heard. Pulmonary: Effort: Pulmonary effort is normal. Breath sounds: No wheezing. Abdominal: General: Bowel sounds are normal. Palpations: Abdomen is soft. Tenderness: There is no abdominal tenderness. Genitourinary: Comments: Jose catheter in place Musculoskeletal: Right lower leg: Edema present. Left lower leg: Edema present. Comments: R foot wound cool, dry, and intact with wound vac in place. Skin: General: Skin is warm. Neurological: General: No focal deficit present. Mental Status: She is alert. Mental status is at baseline. Psychiatric: Mood and Affect: Mood normal. Behavior: Behavior normal. [facility] within last 24 hours Lab Results Component Value Date/Time WBC 5.6 03/30/2021 03:29 AM Hemoglobin 8.4 (L) 03/30/2021 03:29 AM Hematocrit 26.6 (L) 03/30/2021 03:29 AM Platelets 219 03/30/2021 03:29 AM MCV 88.6 03/30/2021 03:29 AM Lab Results Component Value Date/Time Sodium 138 03/30/2021 03:29 AM Potassium 3.9 03/30/2021 03:29 AM Chloride 102 03/30/2021 03:29 AM CO2 28 03/30/2021 03:29 AM BUN 12 03/30/2021 03:29 AM CREATININE 2.04 (H) 03/30/2021 03:29 AM Glucose 164 (H) 03/30/2021 03:29 AM Calcium 8.7 03/30/2021 03:29 AM Phosphorus 3.6 03/30/2021 03:29 AM Assessment and Plan: Acute encephalopathy, likely multifactorial from hypercapnia, toxic/metabolic, and medication induced, resolved Acute on chronic hypercapnic respiratory failure Intermittent confusion likely 2/2 delirium Hx COPD - Mentation appears to be at baseline this AM - Patient currently on 4L NC, SpO2>94% - On Gabapentin 100 mg BID given WHITLEY - Continue Oxycodone 5 mg q8h PRN and scheduled acetaminophen, avoid sedating medications - Continue delirium precautions - Consider ABG if mentation worsens, patient is high risk for hypercapnic respiratory failure as noncompliant with CPAP Productive cough, improved - Reported new productive cough overnight on 03/26 - SpO2>94% on 4L NC, other VSS, afebrile - WBC 5.6 this AM (03/30) - CXR (03/26) remarkable for LLL infiltrate and/or atelectasis, increased from prior exam - Evaluated by RT, decreased DuoNebs to TID - Incentive spirometry bedside - Low concern for infectious process given down-trending WBC and stable clinically WHITLEY with ATN with oliguria, on HD MWF - Cr 2.04 from 2.78 yesterday - Nephrology following, appreciate recommendations - Tunneled catheter placed by IR on 03/21 - Dialysis on 03/29 with removal of 3 L - Continue to hold antihypertensives given WHITLEY 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 Flores's LEONIDAS, Radha Bergman - Completed course of IV antibiotics on 03/18/21 - ID signed off, no need for further IV antibiotics, recommend local wound care management - Wound care following, appreciate recommendations, wound dressing changes M/W/F, has PRN Ativan for wound dressing changes only HTN Hypotension - Fluctuating BPs while in ICU, 156/58 this AM - BP improved since dialysis on 03/24, continue to monitor - Discontinued midodrine given SBPs elevated at 160s-200s over last 24 hours - Nephrology following, appreciate recommendations - Holding all antihypertensives - PRN Hyrdalazine 10 mg IV q3h PRN for SBP > 180 T2DM with hyperglycemia Dysphagia - Glucose 164 this AM - Continue Lantus 12 U and Humalog SS with meals - Blood glucose goal to be 140-180 - Continue POC glucose checks - Hypoglycemia protocol - ST following, recommend advancing diet to soft and bite-sized with thin liquids, elevate head of bed as pt tolerates for intake Hx Dementia - Hx of multiple episodes of altered mentation and confusion in past - Mentation appears at baseline - Continue Donepezil 5 mg daily - Continue Baclofen BID to help with mentation - Continue delirium precautions Chronic pain - Scheduled Oxycodone 5 mg BID at SNF - Continue Oxycodone 5 mg q4h PRN for pain, would try to use minimally to avoid encephalopathy and respiratory failure - Continue low dose Gabapentin 100 BID - Continue Baclofen as above - Continue bowel regimen Anemia - Hgb 8.4 this AM (baseline around 10) - Continue to monitor Morbid obesity HLD - BMI greater than 80 - Continue Atovastatin 20 mg daily Hx paroxysmal Afib - Continue daily ASA Dispo: Patient is medically stable for discharge to LTAC, pending placement. Remove PICC line prior to discharge - Goals of Care: FULL CODE - DVT Prophylaxis: HSQ q8h - GI Prophylaxis: Protonix daily - Diet: Dysphagia - Minced and Moist; Mildly Thick ([place]) Associated attestation - Jamie Rubio DO - 03/30/2021 3:20 PM EST I have discussed the care of Salazar Coyle with the medical student and/or resident. I have personally taken a history, examined the patient, and performed the associated medical decision making activities. I have reviewed & verified the attested documentation. Unless otherwise noted below, this documentation reflects the history, physical exam, and medical decision making that I performed myself. Please see note for my personal highlights or additions in Green. Patient seen and examined by myself at 0905 on 03/30/21 [place] Changes to Care Plan: -Medically stable for discharge, awaiting placement. -Decrease frequency of PRN oxycodone. -Stop midodrine, patient has been hypertensive. -Remove PICC line prior to discharge. I spent over 51% total time of 15 minutes counseling (or coordinating care). Discussed current plan of care with patient. Coordinated care with resident team. Patient Name: Salazar Coyle Patient : 1950 Acct: [id number] Date of Admission: 03/08/2021 Room/Bed: [facility]/[id number] Code Status: Full Code Allergies: No Known Allergies Diagnosis: Patient Active Problem List Diagnosis Foot ulcer (HCC) Wounds, multiple Type 2 diabetes mellitus with hyperglycemia (HCC) Cerebrovascular accident (HCC) Recurrent UTI PAF (paroxysmal atrial fibrillation) ([facility]) Osteoarthrosis Hypertension Hyperlipemia Degenerative disc disease, cervical Chronic pain Bladder spasm Subacute osteomyelitis of right foot ([facility]) Palliative care encounter 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) Morbid obesity with BMI of 60.0-69.9, adult (HCC) Cognitive decline Encephalopathy acute WHITLEY (acute kidney injury) (HCC) Acute respiratory failure (HCC) Acute on chronic respiratory failure with hypercapnia (HCC) Edema Treatment: Hemodilaysis 2:1 Priority: Routine Location: Acute Room Diabetic: Yes NPO: No Isolation Precautions: Dialysis Consent for Treatment Verified: Yes Blood Consent Verified: Not Applicable Safety Verified: Identify (I), Consent (C), Equipment (E), HepB Status (B), Orders Complete (O), Access Verified (A) and Timeliness (T) Time out performed prior to access at 1415 hours. Report Received from Primary RN at 1315 hours. Primary RN (First Initial, Last Name, Title): Tee Rn Incapacitated Nurse Education Completed: Not Applicable HBsAg ONLY: Date Drawn: March 17, 2021 Results: Negative HBsAb: Date Drawn: March 17, 2021 Results: Susceptible <10 Order Dialysis Bath K+ (Potassium): 3 Ca+ (Calcium): 2.5 Na+ (Sodium): 137 HCO3 (Bicarb): 35 Na+ Modeling: Not Applicable Dialyzer: [id number] Dialysate Temperature (C): 36 Blood Flow Rate (BFR): 400 Dialysate Flow Rate (DFR): 600 Access to be Utilized Access: Tunneled Catheter Location: Subclavian Side: Right Needle gauge: Not Applicable + Bruit/Thrill: Not Applicable First Use X-ray Verified: Not Applicable OK to use line order: Yes Site Assessment: Signs and Symptoms of Infection/Inflammation: None If yes: Not Applicable Dressing: Dry and Intact Site Prep: Medical Aseptic Technique Dressing Changed this Treatment: No If yes, by whom: NA - not changed today Date of Last Dressing Change: March 28, [address]?: Yes Red Alcohol Caps in place?: Yes Gauze Dressing?: No Non Dialysis Use?: No Comment: Flows: Good, Patent If access problem, who was notified: Pre and Post-Assessment Patient Vitals for the past 8 hrs: Level of Consciousness Oriented X Heart Rhythm Respiratory Quality/Effort O2 Device Bilateral Breath Sounds Skin Color Skin Condition/Temp Abdomen Inspection Bowel Sounds (All Quadrants) Edema Edema Generalized Pain Level 03/29/21 1400 4 03/29/21 1412 4 03/29/21 1422 Alert (0) 2 Regular Unlabored Nasal cannula Clear;Diminished Appropriate for ethnicity Dry;Warm Soft Active Generalized +3;Pitting Labs Recent Labs 03/27/21 0338 03/28/21 0006 03/29/21 0115 WBC 5.8 5.9 4.7 HGB 8.2* 8.1* 8.2* HCT 26.3* 26.1* 26.2* PLT 220 210 218 Recent Labs 03/27/21 0338 03/28/21 0954 03/29/21 0115 NA 139 139 138 K 3.9 3.7 4.1 CL 103 102 102 CO2 27 29 29 BUN 23* 16 19 CREATININE 3.38* 2.65* 2.78* GLUCOSE 158* 164* 185* IV Drips and Rate/Dose sodium chloride dextrose Safety - Before each treatment: Dialysis Machine No.: [id number] RO Machine No.: [id number] Dialyzer Lot No.: [id number] RO Machine Log Sheet Completed: Yes Machine Alarm Self Test: Passed;Completed (03/29/21 1410) Machine Autotest: Completed,Passed Air Foam Detector: Tested,Proper Function,pH Reading Extracorporeal Circuit Tested for Integrity: Yes Machine Conductivity: 13.6 Manual Conductivity: 13.6 Machine Ph: 7 Bicarbonate Concentrate Lot No.: [id number] Acid Concentrate Lot No.: [id number] Manual Ph: 7 Bleach Test (Neg): Yes Bath Temperature: 96.8 F (36 C) Tubing Lot#: [id number] Conductivity Meter Serial #: [id number] [employer] Secure?: Yes Venous Parameters Set?: Yes Arterial Parameters Set?: Yes Saline Line Double Clamped?: Yes Air Foam Detector Engaged?: Yes Machine Functioning Alarm Free? Yes Prime Given: 200ml Chlorine Testing - Before each treatment and every 4 hours: Treatment Treatment Number: 3 Time On: 1422 Time Off: 1744 Treatment Goal: 3-4L Weight: (!) 440 lb (199.6 kg) (03/17/212157) 1st check: less than 0.1 ppm at: 0845 hours 2nd check: less than 0.1 ppm at: 1445 hours 3rd check: less than 0.1 ppm at: 1745 hours (if greater than 0.1 ppm, then check every 30 minutes from secondary) Access Flows and Pressures Patient Vitals for the past 8 hrs: Blood Flow Rate (ml/min) Ultrafiltration Rate (ml/hr) Ultrafiltration Total Arterial Pressure (mmHg) Venous Pressure (mmHg) TMP Hemodialysis Conductivity DFR Comments Access Visible 03/29/21 1422 200 ml/min 1290 ml/hr 22 ml -30 mmHg 30 70 13.9 600 tx initated Yes 03/29/21 1425 400 ml/min 1290 ml/hr 52 ml -90 mmHg 120 70 600 bfr increased Yes 03/29/21 1500 400 ml/min 1290 ml/hr 905 ml -100 mmHg 150 60 600 pt stable Yes 03/29/21 1515 400 ml/min 1290 ml/hr 1111 ml -100 mmHg 150 70 600 pt stable Yes 03/29/21 1530 400 ml/min 1290 ml/hr 1456 ml -90 mmHg 140 70 600 pt stable Yes 03/29/21 1545 400 ml/min 1040 ml/hr 1756 ml -100 mmHg 140 60 600 Lines secure Yes 03/29/21 1600 400 ml/min 1050 ml/hr 2064 ml -100 mmHg 140 40 600 pt stable Yes 03/29/21 1615 400 ml/min 1050 ml/hr 2288 ml -100 mmHg 140 60 600 pt resting Yes Vital Signs Patient Vitals for the past 8 hrs: BP Temp Pulse Resp SpO2 03/29/21 1416 (!) 205/80 98 F (36.7 C) 96 16 90 % 03/29/21 1422 (!) 193/99 97 03/29/21 1425 (!) 206/89 89 03/29/21 1500 (!) 169/64 66 03/29/21 1515 (!) 154/60 58 03/29/21 1530 (!) 141/63 56 03/29/21 1545 (!) 147/48 50 03/29/21 1600 (!) 139/49 (!) 48 03/29/21 1615 (!) 151/54 (!) 49 Post-Dialysis Arterial Catheter Locking Solution: Heparin (1000units:1ml) Volume (ml): 2.1 Venous Catheter Locking Solution: Heparin (1000units:1ml) Volume (ml): 2.2 Post-Treatment Procedures: Blood returned,Catheter capped, clamped and heparinized x 2 ports Machine Disinfection Process: Exterior Machine Disinfection,Acid/Vinegar Clean,Heat Disinfect Rinseback Volume (ml): 300 ml Total Liters Processed (l/min): 60.8 l/min Dialyzer Clearance: Clear Duration of Treatment (minutes): 180 minutes Hemodialysis Intake (ml): 500 ml Hemodialysis Output (ml): 3500 ml NET Removed (ml): 3000 ml Tolerated Treatment: Good Patient Response to Treatment: pt tolerated tx well Physician Notified?: No Provider Notification Provider Notification Reason for Communication: Evaluate;Review case;New orders (03/20/21 1037) Provider Name: Dr Garner (03/20/21 1037) Provider Notification: Physician (03/20/21 1037) Method of Communication: Call (03/20/21 1037) Response: Other (Comment) (stop tx d/t cvc not working) (03/20/21 1037) Notification Time: 1037 (03/20/21 1037) Handoff complete and report given to Primary RN at 1810 hours. Primary RN (First Initial, Last Name, Title): Tee Rn Education Person Educated: Patient Knowledge Base: Substantial Barriers to Learning?: None Preferred method of Learning: Oral Topic(s): Access Care, Signs and Symptoms of Infection and Fluid Management Teaching Tools: Explanation Response to Education: Verbalized Understanding [facility] Progress Note [facility] [place] Patient: aSlazar Coyle Unit/Bed: 1644/1644B Date of : 1950 Acct: [id number] Admitting Diagnosis: Right foot infection [L08.9] Subacute osteomyelitis of right foot (HCC) [M86.271] Admit Date: 03/08/2021 Hospital Day: 21 Subjective: Salazar Coyle 70 y.o. year old female who we are seeing in consultation for WHITLEY. All labs / data/ chart and interval events are noted Seen during HD BP has been stable Edema is noted AMS worsening, continuously crying my legs, my legs Oliguric Lytes are as expected No other new issues No change in the PFSH at this time Complete ROS otherwise negative Objective: BP (!) 206/89 Pulse 89 Temp 98 F (36.7 C) Resp 16 Ht 5' 2" (1.575 m) Wt (!) 440 lb (199.6 kg) SpO2 90% BMI 80.48 kg/m Intake/Output Summary (Last 24 hours) at 03/29/2021 1446 Last data filed at 03/28/2021 1602 Gross per 24 hour Intake -- Output 225 ml Net -225 ml General Appearance: NAD, awake, morbidly obese HEENT: NC/AT, kayley JVD d/t body habitus Lungs: Distant , CTA bilaterally, no wheeze, rales or rhonchi, good air entry, good respiratory effort Heart: Heart sounds are regular, No murmur, gallop or rub appreciated Abdomen: +BS, soft, nttp, nd, +abdominal wall edema Extremities: +2 upper and 3+ lower bilateral lower ext edema. Difficult to determine if just obesity vs third spacing. Neurologic: no asterixis, moving all ext Affect: confused Access: RIJ TDC, normal exam Diet: ADULT DIET; Dysphagia - Soft and Bite Sized Medications: Baclofen 5 mg Oral BID insulin glargine 12 Units SubCUTAneous Nightly melatonin 3 mg Oral Nightly acetaminophen 975 mg Oral TID aspirin 81 mg Oral Daily atorvastatin 20 mg Oral Daily calcium-cholecalciferol 1 tablet Oral Daily docusate sodium 100 mg Oral BID donepezil 5 mg Oral Nightly pantoprazole 40 mg Oral QAM AC midodrine 5 mg Oral TID gabapentin 100 mg Oral BID insulin lispro 0-6 Units SubCUTAneous TID WC mineral oil-hydrophilic petrolatum Topical BID heparin (porcine) 5,000 Units SubCUTAneous 3 times per day sodium chloride flush 10 mL IntraCATHeter Q12H heparin flush 250 Units IntraCATHeter Q12H miconazole Topical BID stomahesive in petrolatum Topical BID sodium chloride flush 5-40 mL IntraVENous 2 times per day Continuous Infusions: sodium chloride dextrose PRN Meds:heparin (porcine), heparin (porcine), LORazepam, oxyCODONE, hydrALAZINE, polyethylene glycol, ipratropium-albuterol, sodium chloride flush, heparin flush, stomahesive in petrolatum, sodium chloride flush, sodium chloride, ondansetron OR ondansetron, glucose, dextrose, glucagon (rDNA), dextrose DVT Prophylaxis: Data: CBC: Recent Labs 03/27/21 0338 03/28/21 0006 03/29/21 0115 WBC 5.8 5.9 4.7 RBC 2.97* 2.94* 2.99* HGB 8.2* 8.1* 8.2* HCT 26.3* 26.1* 26.2* MCV 88.4 88.7 87.6 RDW 17.7* 17.7* 18.2* PLT 220 210 218 BMP: Recent Labs 03/27/21 0338 03/28/21 0006 03/28/21 0954 03/29/21 0115 NA 139 -- 139 138 K 3.9 -- 3.7 4.1 CL 103 -- 102 102 CO2 27 -- 29 29 PHOS 4.7* 3.7 -- 4.4 BUN 23* -- 16 19 CREATININE 3.38* -- 2.65* 2.78* BNP: No results for input(s): BNP in the last 72 hours. PT/INR: No results for input(s): PROTIME, INR in the last 72 hours. APTT: No results for input(s): APTT in the last 72 hours. CARDIAC ENZYMES: No results for input(s): CKMB, CKMBINDEX, TROPONINT in the last 72 hours. Invalid input(s): CKTOTAL;3 FASTING LIPID PANEL:No results found for: CHOL, HDL, TRIG LIVER PROFILE: No results for input(s): AST, ALT, ALB, BILIDIR, BILITOT, ALKPHOS in the last 72 hours. ABGs: Lab Results Component Value Date PH 7.29 03/23/2021 Assessment/Plan: Salazar Coyle 70 y.o. year old female who we are seeing in consultation for WHITLEY. # WHITLEY/ATN from Normotensive ATN (hypovolemia) on MH TEACHER since 03/17/2021 - HD per MWF schedule, seen during today - Continue to hold acei and diuretics. - UOP oliguric - Renally dose medications for CrCl < 15 - now w/ TDC #HTN - BP better after dialysis, also in pain - we will monitor # Metabolic Encephalopathy suspected from gabapentin/baclofen - Pt with dementia at baseline - Noted on baclofen and gabapentin # Acute on Chronic Resp Acidosis from PHOEBE - Per primary - extubated 03/20 # Acute on Chronic Bilateral lower ext Cellulitis - Off abx - Noted multi gaby on wound culture # Anemia - Hgb stable #DM2 -defer to Primary [facility], may need peer to peer No further changes Will follow Attending Supervising Physician's Attestation Statement I have personally participated in a [id number] history and physical exam on the date of service. Reviewed chart, vitals and labs. I also participated in medical decision making with nurse practitioner.on the date of service and I agree with all of the pertinent clinical information, assessment and treatment plan. Speech Language Pathology LASER PRINTING OPERATOR spoke with RN to request diet advancement to a soft and bite-sized diet with thin liquids. LASER PRINTING OPERATOR will follow to continue dysphagia plan of care and ensure patient safety with diet advancements prior to signing off. Willow Mccormack MS, [facility]/LASER PRINTING OPERATOR [facility] Respiratory Care Department Progress Note As part of the Respiratory Assessment Program (RAP), the following Respiratory Therapist evaluation has been completed, including a chart review and clinical/physical assessment. Respiratory Therapist RAP Evaluation Guideline Points 0 1 2 3 4 Points Strongly Consider History Factor No Pulmonary conditions Stable Pulmonary condition(s) Surgery or Intervention that may impact Pulmonary system (at risk) Surgery or Intervention that is impacting Pulmonary system Active Exacerbation of Pulmonary Condition 1 Respiratory Pattern Regular, RR= 12-18 SEGUNDO or Increased RR= 19-24 Irregular, or RR= 25-30 SOB, talk in short sentences, or RR= 31-35 Severe SOB, accessory muscle use, one word answers, or RR>35 0 Aerosol Med(s), High Flow O2 Breath Sounds Clear Diminished in 1 lobe Diminished in ? 2 lobes Adventitious breath sounds Coarse crackles, Wheezes, or Diminished in >2 lobes 2 Aerosol Med(s), Bronchial Hygiene, Hyperinflation Cough & Sputum Strong cough, no secretion retention or production Weak cough, no secretion retention or production Weak cough, w/ production (less often than Q2hr), or secretion retention No cough, w/ secretion retention or production (less often than Q2hr) Significant secretion production (more often than Q2hr) or mucus plug 0 Aerosol Med(s), Bronchial Hygiene, Hyperinflation Level of Activity Ambulatory Ambulatory with Assist Up in chair or edge of bed (dangle) Non-ambulatory, bedridden with active ROM Completely paralyzed or without active ROM 0 Triage 5 0-2 Triage 4 3-5 Triage 3 6-10 Triage 2 11-14 Triage 1 ?15 Total 3 Triage Score = 5 TRIAGE SCORING SUGGESTED FREQUENCIES Aerosol Therapy Bronchial Hygiene Hyperinflation Triage Score Q4h & PRN 1 Q4hWA (QID) & PRN 2 TID & PRN 3 BID & PRN 4 PRN 5 Therapy(s) Indicated Yes/No Aerosol Medication no Hyperinflation no Bronchial Hygiene no High Flow Oxygen no RT to enter/modify frequency of treatment order in EMR/EHR to match this RAP evaluation. Based on this RAP evaluation the following therapy is being initiated: Duoneb At the following frequency: prn Comments: No pulmonary hx noted in chart change to prn Thank you for involving Respiratory in the care of this patient, Images from the original note were not included. Med Team Progress Note Salazar Coyle : 1950(70 y.o.) Date: March 29, 2021 Med Team: Alvaro Attending: Dr. Rubio Chief Complaint: Chronic R foot wound, AMS Subjective: - No acute events overnight. - Currently, pt is resting comfortably in bed. No new questions or concerns today. Head of bed is more elevated this morning and pt states that this has helped with eating and drinking more easily. Denies fever, chills, chest pain, choking, sob, abd pain, dysuria. Discussed updates from about SNF placement. Pt understood and is agreeable with current plan. Agree with the above. Patient seen and examined at bedside and was resting comfortably. No acute overnight events noted. Patient has no complaints at this time. Review of Systems Constitutional: Negative for chills and fever. Respiratory: Negative for cough, choking and shortness of breath. Cardiovascular: Negative for chest pain, palpitations and leg swelling. Gastrointestinal: Negative for abdominal pain, constipation, diarrhea, nausea and vomiting. Genitourinary: Negative for difficulty urinating and dysuria. Musculoskeletal: Positive for myalgias (R foot). Negative for arthralgias. Neurological: Negative for dizziness, light-headedness and headaches. Scheduled Meds: ipratropium-albuterol 1 ampule Inhalation TID Baclofen 5 mg Oral BID insulin glargine 12 Units SubCUTAneous Nightly melatonin 3 mg Oral Nightly acetaminophen 975 mg Oral TID aspirin 81 mg Oral Daily atorvastatin 20 mg Oral Daily calcium-cholecalciferol 1 tablet Oral Daily docusate sodium 100 mg Oral BID donepezil 5 mg Oral Nightly pantoprazole 40 mg Oral QAM AC midodrine 5 mg Oral TID gabapentin 100 mg Oral BID insulin lispro 0-6 Units SubCUTAneous TID WC mineral oil-hydrophilic petrolatum Topical BID heparin (porcine) 5,000 Units SubCUTAneous 3 times per day sodium chloride flush 10 mL IntraCATHeter Q12H heparin flush 250 Units IntraCATHeter Q12H miconazole Topical BID stomahesive in petrolatum Topical BID sodium chloride flush 5-40 mL IntraVENous 2 times per day Continuous Infusions: sodium chloride dextrose Objective: BP 119/64 Pulse 70 Temp 97 F (36.1 C) (Temporal) Resp 16 Ht 5' 2" (1.575 m) Wt (!) 440 lb (199.6 kg) SpO2 98% BMI 80.48 kg/m Physical Exam Constitutional: General: She is not in acute distress. Appearance: She is obese. She is ill-appearing (Chronic). HENT: Head: Normocephalic and atraumatic. Mouth/Throat: Mouth: Mucous membranes are moist. Eyes: Extraocular Movements: Extraocular movements intact. Conjunctiva/sclera: Conjunctivae normal. Pupils: Pupils are equal, round, and reactive to light. Cardiovascular: Rate and Rhythm: Normal rate and regular rhythm. Pulses: Normal pulses. Heart sounds: No murmur heard. Pulmonary: Effort: Pulmonary effort is normal. Breath sounds: No wheezing. Abdominal: General: Bowel sounds are normal. Palpations: Abdomen is soft. Tenderness: There is no abdominal tenderness. Comments: Unable to appreciate structures due to body habitus Genitourinary: Comments: Jose catheter in place Musculoskeletal: Right lower leg: Edema present. Left lower leg: Edema present. Comments: R foot wound c/d/i. LLE with dressing c/d/i Skin: General: Skin is warm. Neurological: General: No focal deficit present. Mental Status: She is alert. Mental status is at baseline. Psychiatric: Mood and Affect: Mood normal. Behavior: Behavior normal. [facility] within last 24 hours Lab Results Component Value Date/Time WBC 4.7 03/29/2021 01:15 AM Hemoglobin 8.2 (L) 03/29/2021 01:15 AM Hematocrit 26.2 (L) 03/29/2021 01:15 AM Platelets 218 03/29/2021 01:15 AM MCV 87.6 03/29/2021 01:15 AM Lab Results Component Value Date/Time Sodium 138 03/29/2021 01:15 AM Potassium 4.1 03/29/2021 01:15 AM Chloride 102 03/29/2021 01:15 AM CO2 29 03/29/2021 01:15 AM BUN 19 03/29/2021 01:15 AM CREATININE 2.78 (H) 03/29/2021 01:15 AM CREATININE 2.65 (H) 03/28/2021 09:54 AM Glucose 185 (H) 03/29/2021 01:15 AM Calcium 8.8 03/29/2021 01:15 AM Phosphorus 4.4 03/29/2021 01:15 AM Assessment and Plan: Acute encephalopathy, likely multifactorial from hypercapnia, toxic/metabolic, and medication induced, resolved Acute on chronic hypercapnic respiratory failure Intermittent confusion likely 2/2 delirium Hx COPD - Mentation appears to be at baseline this AM - Pt currently on 4L NC, SpO2>94% - On low dose gabapentin given WHITLEY - Continue prn oxycodone and scheduled acetaminophen, avoid sedating medications - Continue delirium precautions - Consider ABG if mentation worsens, pt is high risk for hypercapnic resp failure as noncompliant with CPAP Productive cough, improved - Reported new productive cough overnight on 03/26 - SpO2>94% on 4L NC, other VSS, afebrile - WBC 4.7 this AM - CXR (03/26) remarkable for L lower lobe infiltrate and/or atelectasis, increased from prior exam - Evaluated by RT, decreased duonebs to tid - Incentive spirometry bedside - Low concern for infectious process given down-trending wbc and stable clinically WHITLEY with ATN with oliguria, on HD MWF - Cr 2.78 - Nephrology following, appreciate recs - Tunneled vas cath placed by IR on 03/21 - Dialysis on 03/27 with removal of 3L. 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 Flores's LEONIDAS, Radha Mannpan - Completed course of IV abx on 03/18/21 - ID signed off, no need for further IV abx. Recommend local wound care management - Wound care following, appreciate recs. Wound dressing changes M/W/F, has prn ativan for wound dressing changes only HTN Hypotension - Fluctuating bps while in ICU - Bp improved since dialysis on 03/24. Continue to monitor and consider dc midodrine if bps are high - Nephrology following, appreciate recs - Holding all antihypertensives - Not on antihypertensives prior to admission; consider d/c'ing on discharge T2DM with hyperglycemia Dysphagia - POC glucose 173 this AM - Continue lantus 12 units and humalog ss with meals - Aim to for blood glucose to be 140-180 - Continue poc glucose checks - Hypoglycemia protocol - ST following, recommend advancing diet to soft and bite-sized with thin liquids, elevate head of bed as pt tolerates for intake Hx Dementia - Hx of multiple episodes of altered mentation and confusion in past - Mentation appears at baseline - Continue donepezil 5mg daily - Continue baclofen bid to help with mentation - Continue delirium precautions Chronic pain - Scheduled oxycodone 5mg bid at SNF - Continue prn oxycodone 5mg q4h for pain, used one time in past 24h. Would try to use minimally to avoid encephalopathy and respiratory failure - Continue low dose gabapentin - Continue baclofen as above - Continue bowel regimen Anemia - Fluctuation in hgb during hospitalization - Hgb 8.2 this AM (baseline ~10) - Continue to monitor Morbid obesity HLD - BMI greater than 80 - Continue atovastatin 20mg daily Hx paroxysmal a fib - Continue daily asa Dispo: Pt is medically stable for discharge to LTAC, pending placement. Remove PICC line prior to discharge - Goals of Care: FULL CODE - DVT Prophylaxis: HSQ q8h - GI Prophylaxis: Protonix daily - Diet: Dysphagia - Minced and Moist; Mildly Thick ([place]) Associated attestation - Jamie Rubio DO - 03/29/2021 4:13 PM EST I have discussed the care of Salazar Coyle with the medical student and/or resident. I have personally taken a history, examined the patient, and performed the associated medical decision making activities. I have reviewed & verified the attested documentation. Unless otherwise noted below, this documentation reflects the history, physical exam, and medical decision making that I performed myself. Please see note for my personal highlights or additions in Green. Patient seen and examined by myself at 0914 on 03/29/21 Arias Changes to Care Plan: -Medically stable for discharge, awaiting placement. -Remove PICC line prior to discharge. I spent over 51% total time of 15 minutes counseling (or coordinating care). Discussed current plan of care with patient. Coordinated care with resident team. Pt with no urine output in jose this shift. Pt declined all offers to eat and drink. Pt refused all PO medications and assessment. Pt starts yelling "NO! Don't do that!" When asked about listening to her heart and lungs or looking at her legs. Also turning head with attempt to administer medication. [facility] Progress Note [facility] [place] Patient: Salazar Coyle Unit/Bed: 1644/1644B Date of : 1950 Acct: [id number] Admitting Diagnosis: Right foot infection [L08.9] Subacute osteomyelitis of right foot (HCC) [M86.271] Admit Date: 03/08/2021 Hospital Day: 20 Subjective: Salazar Coyle 70 y.o. year old female who we are seeing in consultation for WHITLEY. All labs / data/ chart and interval events are noted Resting comfortably BP has been stable Edema is noted Mental status better but still slow to respond Oliguric Lytes are as expected No other new issues No change in the PFSH at this time Complete ROS otherwise negative Objective: BP (!) 156/67 Pulse 78 Temp 96.8 F (36 C) (Temporal) Resp 20 Ht 5' 2" (1.575 m) Wt (!) 440 lb (199.6 kg) SpO2 98% BMI 80.48 kg/m Intake/Output Summary (Last 24 hours) at 03/28/2021 1532 Last data filed at 03/27/2021 1844 Gross per 24 hour Intake 500 ml Output 3600 ml Net -3100 ml General Appearance: NAD, awake, morbidly obese HEENT: NC/AT, no JVD appreciated Lungs: Distant , CTA bilaterally, no wheeze, rales or rhonchi, good air entry, good respiratory effort Heart: Heart sounds are regular, No murmur, gallop or rub appreciated Abdomen: +BS, soft, nttp, nd, +abdominal wall edema Extremities: +2 upper and lower bilateral lower ext edema. Difficult to determine if just obesity vs third spacing. Neurologic: no asterixis, moving all ext Affect: Neutral/ Euthymic Access: RIJ TDC, normal exam Diet: ADULT DIET; Dysphagia - Minced and Moist; Mildly Thick ([place]) Medications: ipratropium-albuterol 1 ampule Inhalation TID Baclofen 5 mg Oral BID insulin glargine 12 Units SubCUTAneous Nightly melatonin 3 mg Oral Nightly acetaminophen 975 mg Oral TID aspirin 81 mg Oral Daily atorvastatin 20 mg Oral Daily calcium-cholecalciferol 1 tablet Oral Daily docusate sodium 100 mg Oral BID donepezil 5 mg Oral Nightly pantoprazole 40 mg Oral QAM AC midodrine 5 mg Oral TID gabapentin 100 mg Oral BID insulin lispro 0-6 Units SubCUTAneous TID WC mineral oil-hydrophilic petrolatum Topical BID heparin (porcine) 5,000 Units SubCUTAneous 3 times per day sodium chloride flush 10 mL IntraCATHeter Q12H heparin flush 250 Units IntraCATHeter Q12H miconazole Topical BID stomahesive in petrolatum Topical BID sodium chloride flush 5-40 mL IntraVENous 2 times per day Continuous Infusions: sodium chloride dextrose PRN Meds:heparin (porcine), heparin (porcine), LORazepam, oxyCODONE, hydrALAZINE, polyethylene glycol, ipratropium-albuterol, sodium chloride flush, heparin flush, stomahesive in petrolatum, sodium chloride flush, sodium chloride, ondansetron OR ondansetron, glucose, dextrose, glucagon (rDNA), dextrose DVT Prophylaxis: Data: CBC: Recent Labs 03/26/2111703/27/2133703/28/21 0006 WBC 5.6 5.8 5.9 RBC 2.96* 2.97* 2.94* HGB 8.2* 8.2* 8.1* HCT 26.0* 26.3* 26.1* MCV 87.6 88.4 88.7 RDW 17.4* 17.7* 17.7* PLT 198 220 210 BMP: Recent Labs 03/26/2111703/27/2133703/28/21 0006 03/28/21 0954 NA 139 139 -- 139 K 3.8 3.9 -- 3.7 CL 102 103 -- 102 CO2 28 27 -- 29 PHOS 4.3 4.7* 3.7 -- BUN 20 23* -- 16 CREATININE 3.02* 3.38* -- 2.65* BNP: No results for input(s): BNP in the last 72 hours. PT/INR: No results for input(s): PROTIME, INR in the last 72 hours. APTT: No results for input(s): APTT in the last 72 hours. CARDIAC ENZYMES: No results for input(s): CKMB, CKMBINDEX, TROPONINT in the last 72 hours. Invalid input(s): CKTOTAL;3 FASTING LIPID PANEL:No results found for: CHOL, HDL, TRIG LIVER PROFILE: Recent Labs 12/25/21 0118 AST 26 ALT 8 BILITOT 0.4 ALKPHOS 87 ABGs: Lab Results Component Value Date PH 7.29 03/23/2021 Assessment/Plan: Salazar Coyle 70 y.o. year old female who we are seeing in consultation for WHITLEY. # WHITLEY/ATN from Normotensive ATN (hypovolemia) on MH TEACHER since 03/17/2021 - HD per MWF schedule - Continue to hold acei and diuretics. - UOP oliguric - Renally dose medications for CrCl < 15 - now w/ TDC #HTN - BP better after dialysis - we will monitor # Metabolic Encephalopathy suspected from gabapentin/baclofen - Pt with dementia at baseline - Noted on baclofen and gabapentin -Mentation at baseline # Acute on Chronic Resp Acidosis from PHOEBE - Per primary - extubated 03/20 # Acute on Chronic Bilateral lower ext Cellulitis - Off abx - Noted multi gaby on wound culture # Anemia - Hgb stable #DM2 -defer to IMS [facility] No further changes Will follow Please do no hesitate to call with any questions Pager [phone] Images from the original note were not included. Palliative Care Progress Note Chief Complaint: Salazar Coyle is a 70 y.o. female with chief complaint of foot infection Palliative care is actively following this patient. Assessment/Plan Assessment/Plan Foot Pain - Secondary to edema, post-surgery -on scheduled APAP - has PRN oxycodone available Encephalopathy -resolved -following foot surgery Foot infection - Chronic presented with eschar has regions with conduit to bone -PVRs show good waveforms per vascular -s/p debridement -completed abx Constipation -had BM 03/26/21 -currently has scheduled docusate bid Obesity Encourage weight loss Palliative Care Encounter - symptoms controlled. Goals of care clear. Palliative Care will sign off at this time Goals of Care -discussed code status today with patient -the patient currently is FULL code. She states she is open to intubation moving forward if it is to save her life. -She states that she has discussed these issues with her daughter and her daughter is aware of her wishes. COVID-19 Risk Screening Tool: Has patient been tested for COVID-19 this admission? yes- date 03/08/21; negative result Active Hospital Problems Diagnosis Date Noted Acute on chronic respiratory failure with hypercapnia (HCC) [J96.22] Priority: High Edema [R60.9] Priority: High Acute respiratory failure (HCC) [J96.00] WHITLEY (acute kidney injury) (HCC) [N17.9] Encephalopathy acute [G93.40] 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) [E11.621, L97.509] Morbid obesity with BMI of 60.0-69.9, adult (HCC) [E66.01, Z68.44] Cognitive decline [R41.89] Subacute osteomyelitis of right foot (HCC) [M86.271] Palliative care encounter [Z51.5] Foot ulcer (HCC) [L97.509] 03/08/2021 Discharge planning: to be determined Patient meets criteria for general inpatient hospice care including the following: N/A- Palliative Care Patient Referrals to: none today Discussed patient and the plan of care with the other interdisciplinary team (IDT) members of Palliative Team, and with Patient Subjective: Subjective/Events The patient is laying in bed. She is comfortable. She denies pain, dyspnea, n/v, or other symptoms at this time. Goals of care:To Be Determined Advance Directives: full code Surrogate: patient may have filled out HCPOA paperowkr for child; none on file Prognosis: depends upon goals Spiritualassessment: No spiritual distress identified Bereavement and grief: To Be Determined ROS: See palliative care ROS/ESAS below; Detail ROS unable to obtain due to patient's mental status Family Meeting: See A&P Objective: Physical Exam BP (!) 156/67 Pulse 78 Temp 96.8 F (36 C) (Temporal) Resp 20 Ht 5' 2" (1.575 m) Wt (!) 440 lb (199.6 kg) SpO2 97% BMI 80.48 kg/m Physical Exam Constitutional: General: She is not in acute distress. Appearance: She is obese. She is not diaphoretic. HENT: Head: Normocephalic and atraumatic. Nose: No congestion or rhinorrhea. Eyes: General: No scleral icterus. Right eye: No discharge. Left eye: No discharge. Extraocular Movements: Extraocular movements intact. Conjunctiva/sclera: Conjunctivae normal. Cardiovascular: Rate and Rhythm: Normal rate and regular rhythm. Heart sounds: No murmur heard. No friction rub. No gallop. Pulmonary: Effort: Pulmonary effort is normal. No respiratory distress. Breath sounds: Normal breath sounds. No stridor. No wheezing, rhonchi or rales. Abdominal: General: Bowel sounds are normal. There is no distension. Palpations: Abdomen is soft. There is no mass. Tenderness: There is no abdominal tenderness. There is no guarding or rebound. Hernia: No hernia is present. Musculoskeletal: Comments: Rt foot bandaged Skin: General: Skin is warm and dry. Neurological: General: No focal deficit present. Mental Status: She is oriented to person, place, and time. Psychiatric: Comments: Calm, no agitation Monroe Symptom Assessment Score Monroe Score Pain Score 0 Tiredness Score 0 Nausea Score 0 Depression Score 0 Anxiety Score 0 Drowsiness Score 0 Anorexia Score (0= eating well, 10= not eating) 0 Wellbeing Score (10= worst sense of well-being) 2 Constipation 0 Dyspnea Score (0= no shortness of breath) 0 FLACC Scale (For Pain Assessment of the Non-Verbal Patient); n/a- pt verbal Assessed by: patient. All other systems were reviewed and are negative. CurrentMedications: Inpatient medications reviewed: yes Home Medications reviewed: no 24 Hour PRN Meds: ativan 0.5mg x1, oxycodone 5mg x1 Results/Verification of Data Review Objective data reviewed: labs, images, records, medication use, vitals and chart Data in Support of Terminal Illness: Is patient hospice appropriate? TBD Transition Note Initiated: yes. Speech Language Pathology Facility/Department: [facility] [place] Dysphagia Treatment Note NAME: Salazar Coyle : 1950 Patient Diagnosis(es): Patient Active Problem List Diagnosis Foot ulcer (HCC) Wounds, multiple Type 2 diabetes mellitus with hyperglycemia (HCC) Cerebrovascular accident (HCC) Recurrent UTI PAF (paroxysmal atrial fibrillation) ([facility]) Osteoarthrosis Hypertension Hyperlipemia Degenerative disc disease, cervical Chronic pain Bladder spasm Subacute osteomyelitis of right foot ([facility]) Palliative care encounter 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 ([facility]) Morbid obesity with BMI of 60.0-69.9, adult ([facility]) Cognitive decline Encephalopathy acute WHITLEY (acute kidney injury) (HCC) Acute respiratory failure (HCC) Acute on chronic respiratory failure with hypercapnia ([facility]) Edema Allergies: No Known Allergies Onset Date: 03/08/2021 Oxygen Level:4L NC Current Diet Level: Minced and moist diet with mildly-thick liquids Compensatory Techniques -Total feed -Position patient as upright as able -Small single sips -Small bites -Slow rate Pain:Being managed by RN. S: Patient seen for dysphagia treatment seated partially upright in bed (approximately 40-45 degrees). Patient declined sitting up any further 2/2 leg pain; RN reports patient already received medication for pain and patient declined LASER PRINTING OPERATOR attempts/offers to elevate leg or trial upright positioning while monitoring leg pain. Patient agreeable to trialing upgrades despite [id number] positioning. O: Assess diet tolerance/upgrade trials A: Patient accepted trials of the following: Thin liquids by tsp/small bore straw tip: adequate labial seal, suspect prolonged holding x 1, otherwise relatively timely swallow trigger; no clinical s/s concerning for airway penetration/aspiration across multiple trials Thin liquids by small bore straw: adequate labial seal, suspect delayed swallow trigger/oral holding at times, delayed throat clearing x 1; LASER PRINTING OPERATOR cued patient to utilize small sips with a quick swallow. Patient completed same and maintained clear vocal quality without cough or throat clear. Mildly-thick liquids by small bore straw: WFL Puree by tsp: WFL Soft and bite-sized solids: prolonged but functional mastication, complete oral clearance, no clinical s/s concerning for pharyngeal dysphagia across multiple trials [] Goal met [x] Progressing as expected [] Progressing slower than expected [] Medical status inhibits participation [] Goals not addressed this session [] Goals revised this session [] Unable to show any progress towards functional goals [] Progress towards functional goal is gradual / fair P: Recommend patient advance to a soft and bite-sized diet with thin liquids, utilizing the following strategies: position as upright as patient can tolerate, small bites, small sips (small bore straw ok), and slow rate. May consider providing PO meds in a puree bolus to avoid larger sips of liquid. LASER PRINTING OPERATOR will continue to follow with dysphagia plan of care; however, if patient remains safe with advanced diet, suspect patient is at maximum diet potential with current positioning restrictions. LASER PRINTING OPERATOR to follow. Time In: 0950 Total Session Time: 15 minutes An N95 mask, goggles, and gloves were worn throughout this session. Images from the original note were not included. Wound Care team in to change wound vac dressing to R foot. Primary nurse medicated pt for pain and anxiety prior to dressing change. Upon entering the room, pt began to yell "You can't lift my leg up. You do and I'll start screaming." Reassured pt that wound vac dressing can me changed with minimal lifting of the foot. Pt continued to be anxious about the dressing change and screaming even when foot was not being touched. Old wound vac dressing that was in place was dated 03/23.Old wound vac dressing soaked with saline and removed without difficulties. Removed 1 piece of white foam, 1 piece of black foam. Full thickness surgical wound to R plantar foot measures 9 x 6 x 1.4 cm. Wound bed tissue is 40% red to pink tissue and 60% chavarria/ jiang colored tissue. Bone exposed. Moderate amount of serosang drainage. No purulence or active bleeding noted. Periwound tissue intact, no erythema or induration noted. Coloplast strip paste applied along base of toes to help maintain dressing seal. White foam x1 piece placed in base of wound, then topped with black foam x1 piece. Trac pad bridged to dorsal foot. Dressing well sealed. NPWT pressure set to -125mmHg continuous per order. Palpable pedal pulses +1 bilaterally. BL feet noted to have +3 pitting edema. Stage 2 pressure injury on R plantar heel measures 4 x 4 x 0.1 cm. Difficult to fully assess d/t pt's screaming while attempting to lift foot. Epithelial tissue noted around edges with superficial open areas. No drainage noted. Padded with foam dressing. Pt refusing to wear heel boot when in bed. Pt continued to be on Hill/Rom Excell mattress for additional pressure relief. When finishing dressing changes, pt was calm and resting in bed. No signs of distress noted. Wound Care to follow up with pt for wound vac dressing changes every MWF. For any concerns, page Wound Care Team at #[phone], or call via [employer]. Images from the original note were not included. Med Team Progress Note Salazar Coyle : 1950(70 y.o.) Date: March 28, 2021 Med Team: Alvaro Attending: Dr. Lord Chief Complaint: Chronic R foot wound, AMS Subjective: - No acute events overnight. - Currently, pt is lying comfortably in bed. States that she feels about the same as yesterday, no new questions or concerns. Has been eating and drinking well. Denies chest pain, coughing, choking, sob, abd pain, dysuria. Discussed continued search for placement, no new updates yet this AM. Discussed scheduled duoneb treatments to help keep airways open. Pt verbalized understanding and is agreeable with plan. Agree with the above. Patient seen and examined at bedside and was resting comfortably. No acute overnight events noted. Discussed importance of wearing CPAP overnight, patient continues to decline stating that she does not have sleep apnea. Discharge plan discussed with patient. She understands the need for SNF placement for continued care including dialysis. She has no complaints at this time. Review of Systems Constitutional: Negative for chills and fever. Respiratory: Negative for cough, choking and shortness of breath. Cardiovascular: Negative for chest pain, palpitations and leg swelling. Gastrointestinal: Negative for abdominal pain, constipation, diarrhea, nausea and vomiting. Genitourinary: Negative for difficulty urinating and dysuria. Musculoskeletal: Positive for myalgias (R foot). Negative for arthralgias. Neurological: Negative for dizziness, light-headedness and headaches. Scheduled Meds: ipratropium-albuterol 1 ampule Inhalation TID Baclofen 5 mg Oral BID insulin glargine 12 Units SubCUTAneous Nightly melatonin 3 mg Oral Nightly acetaminophen 975 mg Oral TID aspirin 81 mg Oral Daily atorvastatin 20 mg Oral Daily calcium-cholecalciferol 1 tablet Oral Daily docusate sodium 100 mg Oral BID donepezil 5 mg Oral Nightly pantoprazole 40 mg Oral QAM AC midodrine 5 mg Oral TID gabapentin 100 mg Oral BID insulin lispro 0-6 Units SubCUTAneous TID WC mineral oil-hydrophilic petrolatum Topical BID heparin (porcine) 5,000 Units SubCUTAneous 3 times per day sodium chloride flush 10 mL IntraCATHeter Q12H heparin flush 250 Units IntraCATHeter Q12H miconazole Topical BID stomahesive in petrolatum Topical BID sodium chloride flush 5-40 mL IntraVENous 2 times per day Continuous Infusions: sodium chloride dextrose Objective: BP (!) 155/57 Pulse 84 Temp 99.3 F (37.4 C) (Temporal) Resp 18 Ht 5' 2" (1.575 m) Wt (!) 440 lb (199.6 kg) SpO2 96% BMI 80.48 kg/m Physical Exam Constitutional: General: She is not in acute distress. Appearance: She is obese. She is ill-appearing (Chronic). HENT: Head: Normocephalic and atraumatic. Mouth/Throat: Mouth: Mucous membranes are moist. Eyes: Extraocular Movements: Extraocular movements intact. Conjunctiva/sclera: Conjunctivae normal. Pupils: Pupils are equal, round, and reactive to light. Cardiovascular: Rate and Rhythm: Normal rate and regular rhythm. Pulses: Normal pulses. Heart sounds: No murmur heard. Pulmonary: Effort: Pulmonary effort is normal. Breath sounds: No wheezing. Comments: Decreased breath sounds in bilateral anterior lung bases Abdominal: General: Bowel sounds are normal. Palpations: Abdomen is soft. Tenderness: There is no abdominal tenderness. Comments: Unable to appreciate structures due to body habitus Genitourinary: Comments: Jose catheter in place Musculoskeletal: Right lower leg: Edema present. Left lower leg: Edema present. Comments: R foot wound c/d/i. Bilateral LE with dressings c/d/i Skin: General: Skin is warm. Neurological: General: No focal deficit present. Mental Status: She is alert. Mental status is at baseline. Psychiatric: Mood and Affect: Mood normal. Behavior: Behavior normal. [facility] within last 24 hours Lab Results Component Value Date/Time WBC 5.9 03/28/2021 12:06 AM Hemoglobin 8.1 (L) 03/28/2021 12:06 AM Hematocrit 26.1 (L) 03/28/2021 12:06 AM Platelets 210 03/28/2021 12:06 AM MCV 88.7 03/28/2021 12:06 AM Lab Results Component Value Date/Time Phosphorus 3.7 03/28/2021 12:06 AM Assessment and Plan: Acute encephalopathy, likely multifactorial from hypercapnia, toxic/metabolic, and medication induced, resolved Acute on chronic hypercapnic respiratory failure Intermittent confusion likely 2/2 delirium Hx COPD - Mentation appears to be at baseline this AM - Pt currently on 4L NC, SpO2>94% - On low dose gabapentin given WHITLEY - Continue prn oxycodone and scheduled acetaminophen, avoid sedating medications. Stopped Seroquel (03/23/2021) - Continue delirium precautions - Consider ABG if mentation worsens, pt is high risk for hypercapnic resp failure as noncompliant with CPAP Productive cough - Reported new productive cough overnight on 03/26 - SpO2>94% on 4L NC, other VSS, afebrile - WBC 5.9 this AM - CXR (03/26) remarkable for L lower lobe infiltrate and/or atelectasis, increased from prior exam - Scheduled duoneb tid - Incentive spirometry bedside - Low concern for infectious process given down-trending wbc and stable clinically WHITLEY with ATN with oliguria, on HD MWF - Cr 2.65, improved s/p dialysis on 03/27 - Nephrology following, appreciate recs - Tunneled vas cath placed by IR on 03/21 - Dialysis on 03/27 with removal of 3L. 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 Flores's LEONIDAS, Radha Bergman - Completed course of IV abx on 03/18/21 - ID signed off, no need for further IV abx. Recommend local wound care management - Wound care following, appreciate recs. Wound dressing changes M/W/F, has prn ativan for wound dressing changes only HTN Hypotension - Fluctuating bps while in ICU - Bp improved since dialysis on 03/24. Continue to monitor and consider dc midodrine if bps are high - Nephrology following, appreciate recs - Holding all antihypertensives - Not on antihypertensives prior to admission; consider d/c'ing on discharge T2DM with hyperglycemia Dysphagia - POC glucose 158 this AM - Continue lantus 12 units and humalog ss with meals - Aim to for blood glucose to be 140-180 - Continue poc glucose checks - Hypoglycemia protocol - ST following, recommend advancing diet to soft and bite-sized with thin liquids, elevate head of bed as pt tolerates for intake Hx Dementia - Hx of multiple episodes of altered mentation and confusion in past - Mentation appears at baseline - Continue donepezil 5mg daily - Continue baclofen bid to help with mentation - Continue delirium precautions Chronic pain - Scheduled oxycodone 5mg bid at SNF - Continue prn oxycodone 5mg q4h for pain - Continue low dose gabapentin - Continue baclofen as above - Continue bowel regimen Agree. In addition: MAR reviewed, patient is requiring minimal doses of oxycodone. Would not use consistently in order to avoid encephalopathy and respiratory failure. Anemia - Fluctuation in hgb during hospitalization - Hgb 8.1 this AM (baseline ~10) - Continue to monitor Morbid obesity HLD - BMI greater than 80 - Continue atovastatin 20mg daily Hx paroxysmal a fib - Continue daily asa Dispo: Pt is medically stable for discharge to LTAC, pending placement. Remove PICC line prior to discharge - Goals of Care: FULL CODE - DVT Prophylaxis: HSQ q8h - GI Prophylaxis: Protonix daily - Diet: Dysphagia - Soft and bite-sized with thin liquids Associated attestation - Jamie Rubio, - 03/28/2021 2:20 PM EST I have discussed the care of Salazar Coyle with the medical student and/or resident. I have personally taken a history, examined the patient, and performed the associated medical decision making activities. I have reviewed & verified the attested documentation. Unless otherwise noted below, this documentation reflects the history, physical exam, and medical decision making that I performed myself. Please see note for my personal highlights or additions in Green. Patient seen and examined by myself at 0904 on 03/28/21 Arias Changes to Care Plan: -Medically stable for discharge, awaiting placement. -Remove PICC line prior to discharge. I spent over 51% total time of 15 minutes counseling (or coordinating care). Discussed current plan of care with patient. Coordinated care with resident team. Pt heard yelling for help and yelling for her roommate to "hit the button for the nurse." This RN entered room to find pt tearful repeating "it's too strong! Turn it down it is too strong!" After investigation, pt feels her oxygen is too strong in her nose and that "someone has been turning it up." Pt remains on 4L at this time as previously documented. Pt remains tearful and continues repeating "It is too strong! You don't believe me!" despite education. Vitals assessed and stable per pt baseline. Will continue to monitor. Patient Name: Salazar Coyle Patient : 1950 Acct: [id number] Date of Admission: 03/08/2021 Room/Bed: 1644/1644B Code Status: Full Code Allergies: No Known Allergies Diagnosis: Patient Active Problem List Diagnosis Foot ulcer (HCC) Wounds, multiple Type 2 diabetes mellitus with hyperglycemia (HCC) Cerebrovascular accident (HCC) Recurrent UTI PAF (paroxysmal atrial fibrillation) (HCC) Osteoarthrosis Hypertension Hyperlipemia Degenerative disc disease, cervical Chronic pain Bladder spasm Subacute osteomyelitis of right foot (HCC) Palliative care encounter 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) Morbid obesity with BMI of 60.0-69.9, adult (HCC) Cognitive decline Encephalopathy acute WHITLEY (acute kidney injury) (HCC) Acute respiratory failure (HCC) Acute on chronic respiratory failure with hypercapnia (HCC) Edema Treatment: Hemodilaysis 2:1 Priority: Routine Location: Acute Room Diabetic: Yes NPO: No Isolation Precautions: Dialysis Consent for Treatment Verified: Yes Blood Consent Verified: Not Applicable Safety Verified: Identify (I), Consent (C), Equipment (E), HepB Status (B), Orders Complete (O), Access Verified (A) and Timeliness (T) Time out performed prior to access at 1440 hours. Report Received from Primary RN at 1300 hours. Primary RN (First Initial, Last Name, Title): Vu Frazier Incapacitated Nurse Education Completed: Not Applicable HBsAg ONLY: Date Drawn: March 17, 2021 Results: Negative HBsAb: Date Drawn: March 17, 2021 Results: Susceptible <10 Order Dialysis Bath K+ (Potassium): 3 Ca+ (Calcium): 2.5 Na+ (Sodium): 137 HCO3 (Bicarb): 35 Na+ Modeling: Not Applicable Dialyzer: [id number] Dialysate Temperature (C): 36 Blood Flow Rate (BFR): 350 Dialysate Flow Rate (DFR): 700 Access to be Utilized Access: Tunneled Catheter Location: Subclavian Side: Right Needle gauge: Not Applicable + Bruit/Thrill: Not Applicable First Use X-ray Verified: Not Applicable OK to use line order: Yes Site Assessment: Signs and Symptoms of Infection/Inflammation: None If yes: Not Applicable Dressing: Dry and Intact Site Prep: Medical Aseptic Technique Dressing Changed this Treatment: No If yes, by whom: NA - not changed today Date of Last Dressing Change: March 21, [address]?: Yes Red Alcohol Caps in place?: Yes Gauze Dressing?: No Non Dialysis Use?: No Comment: Flows: Good, Patent If access problem, who was notified: Pre and Post-Assessment Patient Vitals for the past 8 hrs: Level of Consciousness Respiratory Quality/Effort Skin Color Skin Condition/Temp Abdomen Inspection Edema RLE Edema LLE Edema Pain Level Response to Pain Intervention 03/27/21 0800 Alert (0) Unlabored Ecchymosis Dry;Flaky Rotund Right lower extremity;Left lower extremity +2;Pitting +2;Pitting 03/27/21 0851 1 03/27/21 0921 Asleep with RR greater than 10 Labs Recent Labs 03/25/2122003/26/21 0118 03/27/21 0338 WBC 5.9 5.6 5.8 HGB 8.5* 8.2* 8.2* HCT 27.4* 26.0* 26.3* PLT 200 198 220 Recent Labs 03/25/2122003/26/21 0118 03/27/21 0338 NA 138 139 139 K 3.8 3.8 3.9 CL 101 102 103 CO2 26 28 27 BUN 16 20 23* CREATININE 2.58* 3.02* 3.38* GLUCOSE 187* 176* 158* IV Drips and Rate/Dose sodium chloride dextrose Safety - Before each treatment: Dialysis Machine No.: [id number] RO Machine No.: [id number] Dialyzer Lot No.: [id number] RO Machine Log Sheet Completed: Yes Machine Alarm Self Test: Completed;Passed (03/27/21 143) Machine Autotest: Completed,Passed Air Foam Detector: Tested,Proper Function,pH Reading Extracorporeal Circuit Tested for Integrity: Yes Machine Conductivity: 13.9 Manual Conductivity: 13.8 Machine Ph: 7 Bicarbonate Concentrate Lot No.: [id number] Acid Concentrate Lot No.: [id number] Manual Ph: 7 Bleach Test (Neg): Yes Bath Temperature: 96.8 F (36 C) Tubing Lot#: [id number] Conductivity Meter Serial #: [id number] [employer] Secure?: Yes Venous Parameters Set?: Yes Arterial Parameters Set?: Yes Saline Line Double Clamped?: Yes Air Foam Detector Engaged?: Yes Machine Functioning Alarm Free? Yes Prime Given: 200ml Chlorine Testing - Before each treatment and every 4 hours: Treatment Treatment Number: 3 Time On: 1444 Time Off: 1520 Treatment Goal: 3-4L Weight: (!) 440 lb (199.6 kg) (03/17/212157) 1st check: less than 0.1 ppm at: 1145 hours 2nd check: less than 0.1 ppm at: 1445 hours 3rd check: Not Applicable (if greater than 0.1 ppm, then check every 30 minutes from secondary) Access Flows and Pressures Patient Vitals for the past 8 hrs: Blood Flow Rate (ml/min) Ultrafiltration Rate (ml/hr) Ultrafiltration Total Arterial Pressure (mmHg) Venous Pressure (mmHg) TMP Hemodialysis Conductivity DFR Comments Access Visible 03/27/21 1444 200 ml/min 1170 ml/hr -20 mmHg 30 70 13.8 700 tx initiated Yes 03/27/21 1446 350 ml/min 1170 ml/hr 84 ml -80 mmHg 110 60 700 bfr increased Yes 03/27/21 1500 350 ml/min 1170 ml/hr 315 ml -80 mmHg 110 60 700 pt stable Yes 03/27/21 1515 350 ml/min 1170 ml/hr 620 ml -80 mmHg 110 60 700 pt stable Yes Vital Signs Patient Vitals for the past 8 hrs: BP Temp Pulse Resp SpO2 03/27/21 0820 (!) 97/52 98.7 F (37.1 C) 86 20 96 % 03/27/21 1439 (!) 167/78 97.8 F (36.6 C) 81 18 100 % 03/27/21 1444 (!) 165/81 79 03/27/21 1446 (!) 171/93 80 03/27/21 1500 (!) 149/60 69 03/27/21 1515 (!) 129/34 56 Post-Dialysis Arterial Catheter Locking Solution: Heparin (1000units:1ml) Volume (ml): 2.1 Venous Catheter Locking Solution: Heparin (1000units:1ml) Volume (ml): 2.2 Post-Treatment Procedures: Blood returned,Catheter capped, clamped and heparinized x 2 ports,Catheter Capped, clamped with Saline x2 ports Machine Disinfection Process: Exterior Machine Disinfection,Heat Disinfect,Acid/Vinegar Clean Rinseback Volume (ml): 300 ml Total Liters Processed (l/min): 61.6 l/min Dialyzer Clearance: Clear Duration of Treatment (minutes): 180 minutes Hemodialysis Intake (ml): 500 ml Hemodialysis Output (ml): 3500 ml NET Removed (ml): 3000 ml Tolerated Treatment: Good Patient Response to Treatment: pt tolerated tx well Physician Notified?: No Provider Notification Provider Notification Reason for Communication: Evaluate;Review case;New orders (03/20/21 1037) Provider Name: Dr Garner (03/20/21 1037) Provider Notification: Physician (03/20/21 1037) Method of Communication: Call (03/20/21 1037) Response: Other (Comment) (stop tx d/t cvc not working) (03/20/21 1037) Notification Time: 1037 (03/20/21 1037) Handoff complete and report given to Primary RN at 1815 hours. Primary RN (First Initial, Last Name, Title): Vu Rn Education Person Educated: Patient Knowledge Base: Substantial Barriers to Learning?: None Preferred method of Learning: Oral Topic(s): Access Care, Signs and Symptoms of Infection and Fluid Management Teaching Tools: Explanation Response to Education: Verbalized Understanding [facility] Progress Note Subjective/ Salazar Coyle 70 y.o. year old female who we are seeing in consultation for WHITLEY. All labs / data/ chart and interval events are noted Resting comfortably Patient seen on dialysis BP has been stable Edema is noted Oliguric Lytes are as expected No other new issues No change in the PFSH at this time Complete ROS otherwise negative MEDICATIONS: Current Facility-Administered Medications Medication Dose Route Frequency Provider Last Rate Last Admin ipratropium-albuterol (DUONEB) nebulizer solution 1 ampule 1 ampule Inhalation TID Juan Sindelar, DO baclofen (LIORESAL) tablet 5 mg 5 mg Oral BID Juan Sindelar, DO 5 mg at 03/27/21 0852 insulin glargine (LANTUS) injection vial 12 Units 12 Units SubCUTAneous Nightly Juan Sindelar, DO 12 Units at 03/26/212110 LORazepam (ATIVAN) injection 0.5 mg 0.5 mg IntraVENous BID PRN Muna Velázquez MD melatonin tablet 3 mg 3 mg Oral Nightly Keon Young MD 3 mg at 03/25/212028 oxyCODONE (ROXICODONE) immediate release tablet 5 mg 5 mg Oral Q4H PRN Juan Sindelar, DO 5 mg at 03/26/21 1400 acetaminophen (TYLENOL) tablet 975 mg 975 mg Oral TID Oriana Cho, DO 975 mg at 03/27/21 0851 aspirin chewable tablet 81 mg 81 mg Oral Daily Oriana Cho, DO 81 mg at 03/27/21 0851 atorvastatin (LIPITOR) tablet 20 mg 20 mg Oral Daily Oriana Cho, DO 20 mg at 03/27/21 0852 calcium-cholecalciferol 500-200 MG-UNIT per tablet 1 tablet 1 tablet Oral Daily Oriana Cho, DO 1 tablet at 03/27/21 0852 docusate sodium (COLACE) capsule 100 mg 100 mg Oral BID Oriana Cho, DO 100 mg at 03/27/21 0853 donepezil (ARICEPT) tablet 5 mg 5 mg Oral Nightly Oriana Cho, DO 5 mg at 03/25/212028 pantoprazole (PROTONIX) tablet 40 mg 40 mg Oral QAM AC Oriana Cho, DO 40 mg at 03/26/21 0534 midodrine (PROAMATINE) tablet 5 mg 5 mg Oral TID Oriana Cho, DO 5 mg at 03/27/21 1144 gabapentin (NEURONTIN) capsule 100 mg 100 mg Oral BID Oriana Cho, DO 100 mg at 03/27/21 0852 heparin (porcine) injection 1,100 Units 1,100 Units IntraCATHeter PRN Oriana Cho, DO 1,100 Units at 03/22/212012 heparin (porcine) injection 1,200 Units 1,200 Units IntraCATHeter PRN Oriana Cho, DO 1,200 Units at 03/22/212013 insulin lispro (HUMALOG) injection vial 0-6 Units 0-6 Units SubCUTAneous TID WC Oriana Cho, DO 1 Units at 03/27/21 1144 mineral oil-hydrophilic petrolatum (AQUAPHOR) ointment Topical BID Oriana Cho, DO Given at 03/26/212051 hydrALAZINE (APRESOLINE) injection 10 mg 10 mg IntraVENous Q3H PRN Leonel Sood MD 10 mg at 03/15/21 1109 polyethylene glycol (GLYCOLAX) packet 17 g 17 g Per G Tube Daily PRN Oriana Cho, DO heparin (porcine) injection 5,000 Units 5,000 Units SubCUTAneous 3 times per day Leonel Sood MD 5,000 Units at 03/27/21 1402 ipratropium-albuterol (DUONEB) nebulizer solution 1 ampule 1 ampule Inhalation Q4H PRN Leonel Sood MD sodium chloride flush 0.9 % injection 10 mL 10 mL IntraCATHeter Q12H Leonel Sood MD 10 mL at 03/27/21 0339 heparin flush 100 UNIT/ML injection 250 Units 250 Units IntraCATHeter Q12H Leonel Sood MD 250 Units at 03/27/21 0339 sodium chloride flush 0.9 % injection 10 mL 10 mL IntraCATHeter PRN Leonel Sood MD heparin flush 100 UNIT/ML injection 250 Units 250 Units IntraCATHeter PRN Leonel Sood MD miconazole (MICOTIN) 2 % powder Topical BID Leonel Sood MD Given at 03/27/21 0853 stomahesive in petrolatum (ET MIX) Topical PRN Leonel Sood MD stomahesive in petrolatum (ET MIX) Topical BID Leonel Sood MD Given at 03/27/21 0853 sodium chloride flush 0.9 % injection 5-40 mL 5-40 mL IntraVENous 2 times per day Leonel Sood MD 10 mL at 03/27/21 0854 sodium chloride flush 0.9 % injection 5-40 mL 5-40 mL IntraVENous PRN Leonel Sood MD 0.9 % sodium chloride infusion 25 mL IntraVENous PRN Leonel Sood MD ondansetron (ZOFRAN-ODT) disintegrating tablet 4 mg 4 mg Oral Q8H PRN Leonel Sood MD Or ondansetron (ZOFRAN) injection 4 mg 4 mg IntraVENous Q6H PRN Leonel Sood MD glucose (GLUTOSE) 40 % oral gel 15 g 15 g Oral PRN Leonel Sood MD dextrose 50 % IV solution 12.5 g IntraVENous PRN Leonel Sood MD glucagon (rDNA) injection 1 mg 1 mg IntraMUSCular PRN Leonel Sood MD dextrose 5 % solution 100 mL/hr IntraVENous PRN Leonel Sood MD Objective/ Vitals: 03/27/21 1439 03/27/21 1444 03/27/21 1446 03/27/21 1500 BP: (!) 167/78 (!) 165/81 (!) 171/93 (!) 149/60 Pulse: 81 79 80 69 Resp: 18 Temp: 97.8 F (36.6 C) TempSrc: SpO2: 100% Weight: Height: 24HR INTAKE/OUTPUT: Intake/Output Summary (Last 24 hours) at 03/27/2021 1502 Last data filed at 03/27/2021 0958 Gross per 24 hour Intake 0 ml Output 325 ml Net -325 ml General Appearance: NAD, awake, morbidly obese HEENT: NC/AT, no JVD appreciated Lungs: Distant , CTA bilaterally, no wheeze, rales or rhonchi, good air entry, good respiratory effort Heart: Heart sounds are regular, No murmur, gallop or rub appreciated Abdomen: +BS, soft, nttp, nd, +abdominal wall edema Extremities: +2 upper and lower bilateral lower ext edema. Difficult to determine if just obesity vs third spacing. Neurologic: no asterixis, moving all ext Affect: Neutral/ Euthymic Access: RIJ TDC, normal exam Labs: Recent Labs 03/25/2122003/26/21 0118 03/27/21 0338 WBC 5.9 5.6 5.8 HGB 8.5* 8.2* 8.2* HCT 27.4* 26.0* 26.3* MCV 88.8 87.6 88.4 PLT 200 198 220 Recent Labs 03/25/2122003/26/21 0118 03/27/21 0338 NA 138 139 139 K 3.8 3.8 3.9 CL 101 102 103 CO2 26 28 27 GLUCOSE 187* 176* 158* PHOS 3.8 4.3 4.7* BUN 16 20 23* CREATININE 2.58* 3.02* 3.38* Assessment/ Salazar Coyle 70 y.o. year old female who we are seeing in consultation for WHITLEY. # WHITLEY/ATN from Normotensive ATN (hypovolemia) on [facility] since 03/17/2021 - HD per MWF schedule - Noted vancomycin levels 36 - Continue to hold acei and diuretics. - UOP oliguric - Renally dose medications for CrCl < 15 - now w/ TDC - Plan to run MWF schedule for now, but will be on holiday schedule this week #HTN - BP better after dialysis - we will monitor # Metabolic Encephalopathy suspected from gabapentin/baclofen - Pt with dementia at baseline - Noted on baclofen and gabapentin -Mentation at baseline # Acute on Chronic Resp Acidosis from PHOEBE - Per primary - extubated 03/20 # Acute on Chronic Bilateral lower ext Cellulitis - Off abx - Noted multi gaby on wound culture # Anemia - Hgb stable #DM2 -defer to IMS [facility]ed [facility] No further changes Will follow Edyta Alfredo MD [facility] Pager #[phone] 03/27/21 3:02 PM Pt refused to change BLE kerlix and aquaphor x3 attempts. Pt now off unit at dialysis. Pt refusing to drink liquids because they are thickened. Images from the original note were not included. Med Team Progress Note Salazar Coyle : 1950(70 y.o.) Date: March 27, 2021 Med Team: Alvaro Attending: Dr. Lord Chief Complaint: Chronic R foot wound, AMS Subjective: - No acute events overnight. - Currently, pt is laying comfortably in bed. Multiple unopened snacks and juices noted on bedside tray. No new questions or concerns today, states that she feels similar to yesterday. Endorses R foot pain that is unchanged from yesterday. Has been eating and drinking well. Denies coughing, sob, chest pain, abd pain. Discussed no new updates on placement today due to holiday weekend, will hopefully have updates tomorrow. Pt understood and is agreeable with plan. Pt seen and examined earlier today on bedside resident teaching rounds. Hx and PE independently obtained. Pt resting supine in bed, which is her preference; protests any elevation of HOB, even when explained this minimizes risk of aspiration. Review of Systems Constitutional: Negative for chills and fever. Respiratory: Negative for cough, choking and shortness of breath. Cardiovascular: Negative for chest pain, palpitations and leg swelling. Gastrointestinal: Negative for abdominal pain, constipation, diarrhea, nausea and vomiting. Genitourinary: Negative for difficulty urinating and dysuria. Musculoskeletal: Positive for myalgias (R foot). Negative for arthralgias. Neurological: Negative for dizziness, light-headedness and headaches. Agree. Scheduled Meds: Baclofen 5 mg Oral BID insulin glargine 12 Units SubCUTAneous Nightly melatonin 3 mg Oral Nightly acetaminophen 975 mg Oral TID aspirin 81 mg Oral Daily atorvastatin 20 mg Oral Daily calcium-cholecalciferol 1 tablet Oral Daily docusate sodium 100 mg Oral BID donepezil 5 mg Oral Nightly pantoprazole 40 mg Oral QAM AC midodrine 5 mg Oral TID gabapentin 100 mg Oral BID insulin lispro 0-6 Units SubCUTAneous TID WC mineral oil-hydrophilic petrolatum Topical BID heparin (porcine) 5,000 Units SubCUTAneous 3 times per day sodium chloride flush 10 mL IntraCATHeter Q12H heparin flush 250 Units IntraCATHeter Q12H miconazole Topical BID stomahesive in petrolatum Topical BID sodium chloride flush 5-40 mL IntraVENous 2 times per day Continuous Infusions: sodium chloride dextrose Objective: BP 113/63 Pulse 69 Temp 97.3 F (36.3 C) (Temporal) Resp 16 Ht 5' 2" (1.575 m) Wt (!) 440 lb (199.6 kg) SpO2 99% BMI 80.48 kg/m Physical Exam Constitutional: General: She is not in acute distress. Appearance: She is obese. She is ill-appearing (Chronic). HENT: Head: Normocephalic and atraumatic. Mouth/Throat: Mouth: Mucous membranes are moist. Eyes: Extraocular Movements: Extraocular movements intact. Conjunctiva/sclera: Conjunctivae normal. Pupils: Pupils are equal, round, and reactive to light. Cardiovascular: Rate and Rhythm: Normal rate and regular rhythm. Pulses: Normal pulses. Heart sounds: No murmur heard. Pulmonary: Effort: Pulmonary effort is normal. Breath sounds: No wheezing. Comments: Decreased breath sounds in bilateral anterior lung bases Abdominal: General: Bowel sounds are normal. Palpations: Abdomen is soft. Tenderness: There is no abdominal tenderness. Comments: Unable to appreciate structures due to body habitus Genitourinary: Comments: Jose catheter in place Musculoskeletal: Right lower leg: Edema present. Left lower leg: Edema present. Comments: R foot wound c/d/i. Bilateral LE with dressings c/d/i Skin: General: Skin is warm. Neurological: General: No focal deficit present. Mental Status: She is alert. Mental status is at baseline. Psychiatric: Mood and Affect: Mood normal. Behavior: Behavior normal. Awake, conversant, although usual paucity of content. Cooperative. Makes good eye contact. HEENT- MMM. Neck-supple Cor- RRR, Lungs- CTA although distant due to habitus. Abd (+) BS, soft NT. Ext- morbidly obese. (+) right ankle wrap C/D/I. New wraps over distal calves bilat due to chronic wounds. Neuro- no focal deficits noted [facility] within last 24 hours Lab Results Component Value Date/Time WBC 5.8 03/27/2021 03:38 AM Hemoglobin 8.2 (L) 03/27/2021 03:38 AM Hematocrit 26.3 (L) 03/27/2021 03:38 AM Platelets 220 03/27/2021 03:38 AM MCV 88.4 03/27/2021 03:38 AM Lab Results Component Value Date/Time Sodium 139 03/27/2021 03:38 AM Potassium 3.9 03/27/2021 03:38 AM Chloride 103 03/27/2021 03:38 AM CO2 27 03/27/2021 03:38 AM BUN 23 (H) 03/27/2021 03:38 AM CREATININE 3.38 (H) 03/27/2021 03:38 AM Glucose 158 (H) 03/27/2021 03:38 AM Calcium 8.7 03/27/2021 03:38 AM Phosphorus 4.7 (H) 03/27/2021 03:38 AM Assessment and Plan: Acute encephalopathy, likely multifactorial from hypercapnia, toxic/metabolic, and medication induced, resolved Acute on chronic hypercapnic respiratory failure Intermittent confusion likely 2/2 delirium Hx COPD - Mentation appears to be at baseline this AM - Pt currently on 3L NC, SpO2>94% - On low dose gabapentin given WHITLEY - Continue prn oxycodone and scheduled acetaminophen, avoid sedating medications. Stopped Seroquel (03/23/2021) - Continue delirium precautions - Consider ABG if mentation worsens as pt at increased risk of hypercapnic resp failure Agree. Productive cough - Reported new productive cough overnight - SpO2>94% on 3L NC, other VSS, afebrile - WBC 5.8 this AM - CXR (03/26) remarkable for L lower lobe infiltrate and/or atelectasis, increased from prior exam - Scheduled duoneb tid - Low concern for infectious process given down-trending wbc and stable clinically - agree with increasing pulm toilet; given pt's long established lack of cooperation with her care, agree with standing aerosols for 1-2 days then re-evaluate. Strongly doubt pt would cooperate with IS. WHITLEY with ATN with oliguria - Cr 3.38 - Nephrology following, appreciate recs - Tunneled vas cath placed by IR on 03/21 - Dialysis on 03/24 with removal of 3L. Plan to resume M/W/F dialysis this week - Continue to hold antihypertensives given WHITLEY Agree. 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 Flores's LEONIDAS, Radha Bergman - Completed course of IV abx on 03/18/21 - ID signed off, no need for further IV abx. Recommend local wound care management - Wound care following, appreciate recs. Wound dressing changes M/W/F, has prn ativan for wound dressing changes only HTN Hypotension - Fluctuating bps while in ICU - Bp improved since dialysis on 03/24. Continue to monitor and consider dc midodrine if bps are high - Nephrology following, appreciate recs - Holding all antihypertensives - Not on antihypertensives prior to admission; consider d/c'ing on discharge Agree. T2DM with hyperglycemia Dysphagia - POC glucose 168 this AM - Continue lantus to 12 units and humalog ss with meals - Aim to for blood glucose to be 140-180 - Continue poc glucose checks - Hypoglycemia protocol - ST following; continue current diet of minced and moist with mildly thick. Recommend elevating head of bed as pt tolerates for intake .dmgag Hx Dementia - Hx of multiple episodes of altered mentation and confusion in past - Mentation appears at baseline - Continue donepezil 5mg daily - Continue baclofen bid to help with mentation - Continue delirium precautions Chronic pain - Scheduled oxycodone 5mg bid at SNF - Continue prn oxycodone 5mg q4h for pain, used once in past 24 hours - Continue low dose gabapentin - Continue baclofen as above - Continue bowel regimen Anemia - Fluctuation in hgb during hospitalization - Hgb 8.2 this AM (baseline ~10) - Continue to monitor Morbid obesity HLD - BMI greater than 80 - Continue atovastatin 20mg daily Hx paroxysmal a fib - Continue daily asa Dispo: Pt is medically stable for discharge to LTAC, pending placement. Remove PICC line prior to discharge - Goals of Care: FULL CODE - DVT Prophylaxis: HSQ q8h - GI Prophylaxis: Protonix daily - Diet: Dysphagia - Minced and Moist; Mildly Thick ([place]) Attending Supervising Physician's Attestation Statement for Progress Note I performed a history and physical examination on the patinet and discussed the management with the resident physician. I reviewed and agree with the findings and plan as documented in their note except as amended in green font. Discussed with: [x]Residents [x]Patient [x]RN []Consultants []SW/TCC []Other Reviewed: [x]Epic notes []Radiology studies [x]Labs []EKG []Other Subsequent Inpatient: Spent over 51% of total time *25 minutes counseling or coordinating care, and provided discussion regarding review of pCXR and means of increasing pulm toilet measures given pt both here at historically fails to cooperate with her own care. IS unlikely to be used, even with encouragement. Agree with Patient unable to swallow during nightly med pass, and none of the scheduled oral medications were given. [facility] Progress Note Subjective/ Salazar Metheney 70 y.o. year old female who we are seeing in consultation for WHITLEY. All labs / data/ chart and interval events are noted Resting comfortably BP has been stable Edema is noted Anuric Lytes are better after HD No other new issues No change in the PFSH at this time Unable to obtain complete ROS MEDICATIONS: Current Facility-Administered Medications Medication Dose Route Frequency Provider Last Rate Last Admin insulin glargine (LANTUS) injection vial 10 Units 10 Units SubCUTAneous Nightly Juan Rockwelldelar, DO 10 Units at 03/25/212029 LORazepam (ATIVAN) injection 0.5 mg 0.5 mg IntraVENous BID PRN Muna Velázquez MD melatonin tablet 3 mg 3 mg Oral Nightly Keon Young MD 3 mg at 03/25/212028 oxyCODONE (ROXICODONE) immediate release tablet 5 mg 5 mg Oral Q4H PRN Juan Rockwelldelar, DO 5 mg at 03/25/212127 acetaminophen (TYLENOL) tablet 975 mg 975 mg Oral TID Oriana Cho, DO 975 mg at 03/26/21922 aspirin chewable tablet 81 mg 81 mg Oral Daily Oriana Cho, DO 81 mg at 03/26/21921 atorvastatin (LIPITOR) tablet 20 mg 20 mg Oral Daily Oriana Cho, DO 20 mg at 03/26/21921 calcium-cholecalciferol 500-200 MG-UNIT per tablet 1 tablet 1 tablet Oral Daily Oriana Cho, DO 1 tablet at 03/26/21922 docusate sodium (COLACE) capsule 100 mg 100 mg Oral BID Oriana Cho, DO 100 mg at 03/26/21922 donepezil (ARICEPT) tablet 5 mg 5 mg Oral Nightly Oriana Cho, DO 5 mg at 03/25/212028 pantoprazole (PROTONIX) tablet 40 mg 40 mg Oral QAM AC Oriana Cho, DO 40 mg at 03/26/21 0534 midodrine (PROAMATINE) tablet 5 mg 5 mg Oral TID Oriana Cho, DO 5 mg at 03/26/21921 gabapentin (NEURONTIN) capsule 100 mg 100 mg Oral BID Oriana Cho, DO 100 mg at 03/26/21921 heparin (porcine) injection 1,100 Units 1,100 Units IntraCATHeter PRN Oriana Cho, DO 1,100 Units at 03/22/212012 heparin (porcine) injection 1,200 Units 1,200 Units IntraCATHeter PRN Oriana Cho, DO 1,200 Units at 03/22/212013 Baclofen (LIORESAL) tablet 5 mg 5 mg Oral TID Oriana Cho, DO 5 mg at 03/26/21922 insulin lispro (HUMALOG) injection vial 0-6 Units 0-6 Units SubCUTAneous TID Oriana Cho, DO 1 Units at 03/26/21 09 mineral oil-hydrophilic petrolatum (AQUAPHOR) ointment Topical BID Oriana Cho, DO Given at 03/26/21 0924 hydrALAZINE (APRESOLINE) injection 10 mg 10 mg IntraVENous Q3H PRN Leonel Sood MD 10 mg at 03/15/21 1109 polyethylene glycol (GLYCOLAX) packet 17 g 17 g Per G Tube Daily PRN Oriana Cho, DO heparin (porcine) injection 5,000 Units 5,000 Units SubCUTAneous 3 times per day Leonel Sood MD 5,000 Units at 03/26/21 0534 ipratropium-albuterol (DUONEB) nebulizer solution 1 ampule 1 ampule Inhalation Q4H PRN Leonel Sood MD sodium chloride flush 0.9 % injection 10 mL 10 mL IntraCATHeter Q12H Leonel Sood MD 10 mL at 03/26/21 0349 heparin flush 100 UNIT/ML injection 250 Units 250 Units IntraCATHeter Q12H Leonel Sood MD 250 Units at 03/26/21 0349 sodium chloride flush 0.9 % injection 10 mL 10 mL IntraCATHeter PRN Leonel Sood MD heparin flush 100 UNIT/ML injection 250 Units 250 Units IntraCATHeter PRN Leonel Sood MD miconazole (MICOTIN) 2 % powder Topical BID Leonel Sood MD Given at 03/26/21 0924 stomahesive in petrolatum (ET MIX) Topical PRN Leonel Sood MD stomahesive in petrolatum (ET MIX) Topical BID Leonel Sood MD Given at 03/26/21 0925 sodium chloride flush 0.9 % injection 5-40 mL 5-40 mL IntraVENous 2 times per day Leonel Sood MD 10 mL at 03/26/21 0921 sodium chloride flush 0.9 % injection 5-40 mL 5-40 mL IntraVENous PRN Leonel Sood MD 0.9 % sodium chloride infusion 25 mL IntraVENous PRN Leonel Sood MD ondansetron (ZOFRAN-ODT) disintegrating tablet 4 mg 4 mg Oral Q8H PRN Leonel Sood MD Or ondansetron (ZOFRAN) injection 4 mg 4 mg IntraVENous Q6H PRN Leonel Sood MD glucose (GLUTOSE) 40 % oral gel 15 g 15 g Oral PRN Leonel Sood MD dextrose 50 % IV solution 12.5 g IntraVENous PRN Leonel Sood MD glucagon (rDNA) injection 1 mg 1 mg IntraMUSCular PRN Leonel Sood MD dextrose 5 % solution 100 mL/hr IntraVENous PRN Leonel Sood MD Objective/ Vitals: 03/25/21 0743 03/25/21 1928 03/26/21 0628 03/26/21 0821 BP: (!) 130/52 (!) 114/43 (!) 162/58 Pulse: 69 76 76 Resp: 24 Temp: 97.5 F (36.4 C) 96.7 F (35.9 C) 97.3 F (36.3 C) TempSrc: Temporal Temporal Temporal SpO2: 100% 91% 95% 95% Weight: Height: 24HR INTAKE/OUTPUT: Intake/Output Summary (Last 24 hours) at 03/26/2021 1003 Last data filed at 03/25/2021 1849 Gross per 24 hour Intake 0 ml Output Net 0 ml General Appearance: NAD, awake, morbidly obese HEENT: NC/AT, no JVD appreciated Lungs: Distant , CTA bilaterally, no wheeze, rales or rhonchi, good air entry, good respiratory effort Heart: Heart sounds are regular, No murmur, gallop or rub appreciated Abdomen: +BS, soft, nttp, nd, +abdominal wall edema Extremities: +2 upper and lower bilateral lower ext edema. Difficult to determine if just obesity vs third spacing. Neurologic: no asterixis, moving all ext Affect: Neutral/ Euthymic Access: RIJ TDC, normal exam Labs: Recent Labs 03/24/21 0054 03/25/21 0221 03/26/21 0118 WBC 4.6 5.9 5.6 HGB 7.6* 8.5* 8.2* HCT 24.4* 27.4* 26.0* MCV 87.3 88.8 87.6 PLT 171 200 198 Recent Labs 03/24/21 0054 03/25/21 0221 03/26/21 0118 NA 139 138 139 K 3.8 3.8 3.8 CL 102 101 102 CO2 27 26 28 GLUCOSE 212* 187* 176* PHOS 3.9 3.8 4.3 BUN 19 16 20 CREATININE 3.12* 2.58* 3.02* Assessment/ Salazar Adela[place]instonford 70 y.o. year old female who we are seeing in consultation for WHITLEY. # WHITLEY/ATN from Normotensive ATN (hypovolemia) - HD per MWF schedule - Noted vancomycin levels 36 - Continue to hold acei and diuretics. - UOP not documented - Renally dose to CrCl < 15 - IHD03/22, now w/ TDC - Plan to run MWF schedule for now, but will be on holiday schedule this week #HTN - BP better after dialysis - we will monitor # Metabolic Encephalopathy suspected from gabapentin/baclofen - Pt with dementia at baseline - Noted on baclofen and gabapentin # Acute on Chronic Resp Acidosis from PHOEBE - Per primary - extubated 03/20 # Acute on Chronic Bilateral lower ext Cellulitis - Off abx - Noted multi gaby on wound culture # Anemia - Hgb stable #DM2 -defer to IMS Noted plans to [facility] No further changes Will follow Edyta Alfredo MD [facility] Pager #[phone] 03/26/21 10:03 AM Images from the original note were not included. Med Team Progress Note Salazar Coyle : 1950(70 y.o.) Date: March 26, 2021 Med Team: Alvaro Attending: Dr. Lord Chief Complaint: Chronic R foot wound, AMS Subjective: - No acute events overnight. Informed by night team of new productive cough overnight; SpO2 >94% on 3L NC throughout the night. - Currently, pt is resting comfortably in bed. No new questions or concerns, feeling about the same as yesterday. Has been eating and drinking well. Endorses R foot pain, unchanged from previous exam. Denies new cough, chest pain, sob, abd pain. Discussed pending plan for placement but difficulty due to holiday weekend. Pt understands and is agreeable. Pt seen and examined earlier today on bedside resident teaching rounds. Hx and PE independently obtained. Pt awake, pleasant and appears in no distress. No new issues. Unable to recall that she had procedure on foot. D/w RN- goal is to put team together to roll pt for general care if pt allows (pt tends to refuse tx). Review of Systems Constitutional: Negative for chills and fever. Respiratory: Negative for cough, choking, chest tightness, shortness of breath and wheezing. Cardiovascular: Negative for chest pain, palpitations and leg swelling. Gastrointestinal: Negative for abdominal pain, constipation, diarrhea, nausea and vomiting. Genitourinary: Negative for difficulty urinating and dysuria. Musculoskeletal: Positive for myalgias (R foot). Negative for arthralgias. Neurological: Negative for dizziness, light-headedness and headaches. Agree. Scheduled Meds: insulin glargine 10 Units SubCUTAneous Nightly melatonin 3 mg Oral Nightly acetaminophen 975 mg Oral TID aspirin 81 mg Oral Daily atorvastatin 20 mg Oral Daily calcium-cholecalciferol 1 tablet Oral Daily docusate sodium 100 mg Oral BID donepezil 5 mg Oral Nightly pantoprazole 40 mg Oral QAM AC midodrine 5 mg Oral TID gabapentin 100 mg Oral BID Baclofen 5 mg Oral TID insulin lispro 0-6 Units SubCUTAneous TID WC mineral oil-hydrophilic petrolatum Topical BID heparin (porcine) 5,000 Units SubCUTAneous 3 times per day sodium chloride flush 10 mL IntraCATHeter Q12H heparin flush 250 Units IntraCATHeter Q12H miconazole Topical BID stomahesive in petrolatum Topical BID sodium chloride flush 5-40 mL IntraVENous 2 times per day Continuous Infusions: sodium chloride dextrose Objective: BP (!) 114/43 Pulse 76 Temp 96.7 F (35.9 C) (Temporal) Resp 18 Ht 5' 2" (1.575 m) Wt (!) 440 lb (199.6 kg) SpO2 95% BMI 80.48 kg/m Physical Exam Constitutional: General: She is not in acute distress. Appearance: She is obese. She is ill-appearing (Chronic). HENT: Head: Normocephalic and atraumatic. Mouth/Throat: Mouth: Mucous membranes are moist. Eyes: Extraocular Movements: Extraocular movements intact. Conjunctiva/sclera: Conjunctivae normal. Pupils: Pupils are equal, round, and reactive to light. Cardiovascular: Rate and Rhythm: Normal rate and regular rhythm. Pulses: Normal pulses. Heart sounds: No murmur heard. Pulmonary: Effort: Pulmonary effort is normal. Breath sounds: No wheezing. Comments: Decreased breath sounds in bilateral anterior lung bases Abdominal: General: Bowel sounds are normal. Palpations: Abdomen is soft. Tenderness: There is no abdominal tenderness. Comments: Unable to appreciate structures due to body habitus Genitourinary: Comments: Jose catheter in place Musculoskeletal: Right lower leg: Edema present. Left lower leg: Edema present. Comments: R foot wound c/d/i, wound vac attached, in off loading boot Skin: General: Skin is warm. Findings: Erythema (Chronic changes noted on bilateral LE) present. Neurological: General: No focal deficit present. Mental Status: She is alert. Mental status is at baseline. Psychiatric: Mood and Affect: Mood normal. Behavior: Behavior normal. Awake, alert, remains confused over why she is where she is. Know her RLE hurts, but not that she has had a procedure by ortho (unchanged). Laying almost flat as she refuses to allow staff to raise HOB for safety. Morbidly obese. Makes good eye contact. HEENT- MMM. Neck-supple Cor- RRR, nl S1S2. Lungs- CTA. Abd (+) BS, soft NT. Ext- morbidly obese, right foot with clean bandage and wound vac drain exiting the area. [facility] within last 24 hours Lab Results Component Value Date/Time WBC 5.6 03/26/2021 01:18 AM Hemoglobin 8.2 (L) 03/26/2021 01:18 AM Hematocrit 26.0 (L) 03/26/2021 01:18 AM Platelets 198 03/26/2021 01:18 AM MCV 87.6 03/26/2021 01:18 AM Lab Results Component Value Date/Time Sodium 139 03/26/2021 01:18 AM Potassium 3.8 03/26/2021 01:18 AM Chloride 102 03/26/2021 01:18 AM CO2 28 03/26/2021 01:18 AM BUN 20 03/26/2021 01:18 AM CREATININE 3.02 (H) 03/26/2021 01:18 AM Glucose 176 (H) 03/26/2021 01:18 AM Calcium 8.9 03/26/2021 01:18 AM Phosphorus 4.3 03/26/2021 01:18 AM Lab Results Component Value Date/Time AST 26 03/26/2021 01:18 AM ALT 8 03/26/2021 01:18 AM Total Protein 6.1 (L) 03/26/2021 01:18 AM Albumin,Serum 3.1 (L) 03/26/2021 01:18 AM Total Bilirubin 0.4 03/26/2021 01:18 AM Alkaline Phosphatase 87 03/26/2021 01:18 AM Assessment and Plan: Acute encephalopathy, likely multifactorial from hypercapnia, toxic/metabolic, and medication induced, resolved Acute on chronic hypercapnic respiratory failure Intermittent confusion likely 2/2 delirium Hx COPD - Mentation appears to be at baseline this AM - Pt currently on 3L NC, SpO2>94% - Dialysis on 03/24 with removal of 3L - On low dose gabapentin given WHITLEY - Continue prn oxycodone and scheduled acetaminophen, avoid sedating medications. Stopped Seroquel (03/23/2021) - Continue delirium precautions - Consider ABG if mentation worsens Agree. Productive cough - Reported new productive cough overnight - SpO2>94% on 3L NC, other VSS, afebrile - WBC 5.6 this AM - Repeat CXR pending - Sputum cx pending - Low concern for infectious process given down-trending wbc and stable clinically Agree. WHITLEY with ATN with oliguria - Cr 3.02 - Nephrology following, appreciate recs - Tunneled vas cath placed by IR on 03/21 - Dialysis on 03/24 with removal of 3L. Plan to resume M/W/F dialysis next week - Continue to hold antihypertensives given WHITLEY Agree. 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 Flores's LEONIDAS, Radha Steeltanya - Completed course of IV abx on 03/18/21 - ID signed off, no need for further IV abx. Recommend local wound care management - Wound care following, appreciate recs. Wound dressing changes M/W/F, has prn ativan for wound dressing changes only Agree. HTN Hypotension - Fluctuating bps while in ICU - Bp improved since dialysis on 03/24. Continue to monitor and consider dc midodrine if bps continue to be high - Nephrology following, appreciate recs - Holding all antihypertensives - Not on antihypertensives prior to admission; consider d/c'ing on discharge Agree. T2DM with hyperglycemia Dysphagia - POC glucose 176 this AM, improved from yesterday - Increase lantus to 12 units and humalog ss with meals - Aim to for blood glucose to be 140-180 - Continue poc glucose checks - Hypoglycemia protocol - ST following; continue current diet of minced and moist with mildly thick. Recommend elevating head of bed as pt tolerates for intake Agree. Hx Dementia - Hx of multiple episodes of altered mentation and confusion in past - Mentation appears at baseline - Continue donepezil 5mg daily - Decrease baclofen to bid to help with mentation - Continue delirium precautions Agree. Chronic pain - Scheduled oxycodone 5mg bid at SNF - Continue prn oxycodone 5mg q4h for pain, used twice in past 24 hours - Continue low dose gabapentin - Decrease baclofen as above - Continue bowel regimen Anemia - Fluctuation in hgb during hospitalization - Hgb 8.2 this AM (baseline ~10) - Continue to monitor Morbid obesity HLD - BMI greater than 80 - Continue atovastatin 20mg daily Hx paroxysmal a fib - Continue daily asa Dispo: Pt is medically stable for discharge to LTAC, pending placement. Remove PICC line prior to discharge - Goals of Care: FULL CODE - DVT Prophylaxis: HSQ q8h - GI Prophylaxis: Protonix daily - Diet: Dysphagia - Minced and Moist; Mildly Thick ([place]) Attending Supervising Physician's Attestation Statement for Progress Note I performed a history and physical examination on the patinet and discussed the management with the resident physician. I reviewed and agree with the findings and plan as documented in their note except as amended in green font. Discussed with: [x]Residents [x]Patient/ [x]RN []Consultants []SW/TCC []Other Reviewed: [x]Epic notes []Radiology studies []Labs []EKG []Other Subsequent Inpatient: Spent over 51% of total time 25 minutes counseling or coordinating care, and provided discussion regarding review of medical care with med team and RN. [facility] Progress Note Subjective/ Salazar Coyle 70 y.o. year old female who we are seeing in consultation for WHITLEY. All labs / data/ chart and interval events are noted BP has been stable Edema is noted Anuric Lytes are better after HD Responding to current rx at this time No other new issues No change in the PFS at this time Unable to obtain complete ROS due to clinical condition MEDICATIONS: Current Facility-Administered Medications Medication Dose Route Frequency Provider Last Rate Last Admin insulin glargine (LANTUS) injection vial 10 Units 10 Units SubCUTAneous Nightly Juan Adams, DO 10 Units at 03/24/212200 LORazepam (ATIVAN) injection 0.5 mg 0.5 mg IntraVENous BID PRN Muna Velázquez MD melatonin tablet 3 mg 3 mg Oral Nightly Keon Young MD 3 mg at 03/24/212155 oxyCODONE (ROXICODONE) immediate release tablet 5 mg 5 mg Oral Q4H PRN Juan Adams, DO 5 mg at 03/25/21 1012 acetaminophen (TYLENOL) tablet 975 mg 975 mg Oral TID Oriana Cho, DO 975 mg at 03/25/21 1011 aspirin chewable tablet 81 mg 81 mg Oral Daily Oriana Cho, DO 81 mg at 03/25/21 1012 atorvastatin (LIPITOR) tablet 20 mg 20 mg Oral Daily Oriana Cho, DO 20 mg at 03/25/21 1012 calcium-cholecalciferol 500-200 MG-UNIT per tablet 1 tablet 1 tablet Oral Daily Oriana Cho, DO 1 tablet at 03/25/21 1011 docusate sodium (COLACE) capsule 100 mg 100 mg Oral BID Oriana Cho, DO 100 mg at 03/25/21 1012 donepezil (ARICEPT) tablet 5 mg 5 mg Oral Nightly Oriana Cho, DO 5 mg at 03/24/21 2158 pantoprazole (PROTONIX) tablet 40 mg 40 mg Oral QAM AC Oriana Cho, DO 40 mg at 03/25/21 0529 midodrine (PROAMATINE) tablet 5 mg 5 mg Oral TID Oriana Cho, DO 5 mg at 03/25/21 1012 gabapentin (NEURONTIN) capsule 100 mg 100 mg Oral BID Oriana Cho, DO 100 mg at 03/25/21 1011 heparin (porcine) injection 1,100 Units 1,100 Units IntraCATHeter PRN Oriana Cho, DO 1,100 Units at 03/22/212012 heparin (porcine) injection 1,200 Units 1,200 Units IntraCATHeter PRN Oriana Cho, DO 1,200 Units at 03/22/212013 Baclofen (LIORESAL) tablet 5 mg 5 mg Oral TID Oriana Cho, DO 5 mg at 03/25/21 1011 insulin lispro (HUMALOG) injection vial 0-6 Units 0-6 Units SubCUTAneous TID WC Oriana Cho, DO 1 Units at 03/25/21 0754 mineral oil-hydrophilic petrolatum (AQUAPHOR) ointment Topical BID Oriana Cho, DO Given at 03/24/218 hydrALAZINE (APRESOLINE) injection 10 mg 10 mg IntraVENous Q3H PRN Leonel Sood MD 10 mg at 03/15/21 1109 polyethylene glycol (GLYCOLAX) packet 17 g 17 g Per G Tube Daily PRN Oriana Cho, DO heparin (porcine) injection 5,000 Units 5,000 Units SubCUTAneous 3 times per day Leonel Sood MD 5,000 Units at 03/25/21 0530 ipratropium-albuterol (DUONEB) nebulizer solution 1 ampule 1 ampule Inhalation Q4H PRN Leonel Sood MD sodium chloride flush 0.9 % injection 10 mL 10 mL IntraCATHeter Q12H Leonel Sood MD 10 mL at 03/25/21 0415 heparin flush 100 UNIT/ML injection 250 Units 250 Units IntraCATHeter Q12H Leonel Sood MD 250 Units at 03/25/21 0415 sodium chloride flush 0.9 % injection 10 mL 10 mL IntraCATHeter PRN Leonel Sood MD heparin flush 100 UNIT/ML injection 250 Units 250 Units IntraCATHeter PRN Leonel Sood MD miconazole (MICOTIN) 2 % powder Topical BID Leonel Sood MD Given at 03/24/212157 stomahesive in petrolatum (ET MIX) Topical PRN Leonel Sood MD stomahesive in petrolatum (ET MIX) Topical BID Leonel Sood MD Given at 03/24/21 215 sodium chloride flush 0.9 % injection 5-40 mL 5-40 mL IntraVENous 2 times per day Leonel Sood MD 10 mL at 03/25/21 1022 sodium chloride flush 0.9 % injection 5-40 mL 5-40 mL IntraVENous PRN Leonel Sood MD 0.9 % sodium chloride infusion 25 mL IntraVENous PRN Leonel Sood MD ondansetron (ZOFRAN-ODT) disintegrating tablet 4 mg 4 mg Oral Q8H PRN Leonel Sood MD Or ondansetron (ZOFRAN) injection 4 mg 4 mg IntraVENous Q6H PRN Leonel Sood MD glucose (GLUTOSE) 40 % oral gel 15 g 15 g Oral PRN Leonel Sood MD dextrose 50 % IV solution 12.5 g IntraVENous PRN Leonel Sood MD glucagon (rDNA) injection 1 mg 1 mg IntraMUSCular PRN Leonel Sood MD dextrose 5 % solution 100 mL/hr IntraVENous PRN Leonel Sood MD Objective/ Vitals: 03/24/21 1520 03/24/21 1522 03/24/21 1944 03/25/21 0743 BP: (!) 166/77 (!) 149/58 (!) 126/54 (!) 130/52 Pulse: 88 88 83 69 Resp: 16 18 Temp: 97.8 F (36.6 C) 97 F (36.1 C) 97.5 F (36.4 C) TempSrc: Temporal Temporal SpO2: 95% 100% 100% Weight: Height: 24HR INTAKE/OUTPUT: Intake/Output Summary (Last 24 hours) at 03/25/2021 1027 Last data filed at 03/24/2021 1757 Gross per 24 hour Intake 500 ml Output 3625 ml Net -3125 ml General Appearance: NAD, awake, morbidly obese HEENT: NC/AT, no JVD appreciated Lungs: Distant , CTA bilaterally, no wheeze, rales or rhonchi, good air entry, good respiratory effort Heart: Heart sounds are regular, No murmur, gallop or rub appreciated Abdomen: +BS, soft, nttp, nd, +abdominal wall edema Extremities: +2 upper and lower bilateral lower ext edema. Difficult to determine if just obesity vs third spacing. Neurologic: no asterixis, moving all ext Affect: Neutral/ Euthymic Access: [facility], normal exam Labs: Recent Labs 03/23/21 0532 03/24/21< [facility] Work Phone: 04-08-2021 Note -------- Attestation signed by Alpesh Plascencia MD at 04/15/2021 2:32 PM Agree with summary, see progress note from 04/15/21 for attending comments. Time spent on discharge >30 minutes. 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) Morbid obesity with BMI of 60.0-69.9, adult ([facility]) Cognitive decline Anemia Chronic indwelling Jose catheter Hyperglycemia CKD (chronic kidney disease) Asymptomatic bacteriuria Resolved Problems: Acute on chronic respiratory failure with hypercapnia ([facility]) Subacute osteomyelitis of right foot ([facility]) Palliative care encounter Encephalopathy acute WHITLEY (acute kidney injury) ([facility]) Acute respiratory failure ([facility]) Reason for Admission & Hospital Course: Salazar Coyle is a 70 YO F w/ a PMHx of a-fib, TIIDM, lymphedema, &?morbid obesity who was admitted on 03/09/21 for a right foot wound and was found to have osteomyelitis (hx neglecting personal care). Underwent I&D of the R foot on 03/15/21 which grew providencia stuartii, pseudomonas, and MRSA which was subsequently treated with IV abx. While hospitalized became encephalopathic and hypotensive and subsequently developed acute hypoxic RF & AMS requiring ICU intubation and pressor support. In ICU 03/13/21-03/21/21. During her hospital stay developed WHITLEY/ATN requiring HD. Nephrology assessed the pt, renal function improved and no need for chronic dialysis at this time. Patient discharged in safe and stable condition to [facility] on 04/15/2021. Disposition: [facility] (Non-Sk[facility]) Activity: up with assist Diet: ADULT DIET; Dysphagia - Soft and Bite Sized; 5 carb choices (75 gm/meal) ADULT ORAL NUTRITION SUPPLEMENT; Lunch, Dinner; Frozen Oral Supplement Discharge Medications: Current Outpatient Medications Medication Instructions ? acetaminophen (TYLENOL) 975 mg, Oral, 3 TIMES DAILY ? aspirin 81 mg, Oral, DAILY ? atorvastatin (LIPITOR) 20 mg, Oral, DAILY ? Baclofen (LIORESAL) 5 mg, Oral, 2 TIMES DAILY ? calcium-vitamin D (OSCAL-500) 500-200 MG-UNIT per tablet 1 tablet, Oral, DAILY ? collagenase 250 UNIT/GM ointment Apply topically daily. ? docusate sodium (COLACE) 100 mg, Oral, 2 TIMES DAILY ? donepezil (ARICEPT) 5 mg, Oral, NIGHTLY ? Eliquis 5 mg, 2 TIMES DAILY ? gabapentin (NEURONTIN) 100 mg, Oral, 2 TIMES DAILY ? insulin glargine (LANTUS) 28 Units, SubCUTAneous, NIGHTLY ? insulin lispro (HUMALOG) 8 Units, SubCUTAneous, 3 TIMES DAILY WITH MEALS ? melatonin 3 mg, Oral, NIGHTLY ? miconazole (MICOTIN) 2 % powder Apply topically 2 times daily. ? mineral oil-hydrophilic petrolatum (AQUAPHOR) ointment Apply topically as needed. ? oxyCODONE 5 mg, Oral, EVERY 6 HOURS PRN ? sennosides-docusate sodium (SENOKOT-S) 8.6-50 MG tablet 2 tablets, Oral, DAILY ? vitamin C 500 mg, Oral, DAILY Notable Medication Changes & Reasoning: Gabapentin, baclofen restarted at decreased dose Stopped bumex / worsening Cr function Insulin changed to 28 units Lantus nightly and 8 units Humalog TID with meals Consultants Urology difficulty putting in jose Cardiology hypotension & possible <3 failure Infectious disease polymicrobial foot wound Nephrology WHITLEY ICU Vascular no vascular intervention Palliative care full code Wound Care Orthopedic surgery I&D with debridement Procedures Performed 03/15/21 I&D w/ debridement of right foot with VAC dressing. 03/21/21: Right tunneled dialysis catheter Significant Laboratory/Radiographic Data: In ED: ESR 62, hg 10.7 03/08/21: R foot: 3 views of the right foot reveal of the bones to be osteopenic. With this degree of osteopenia, a nondisplaced hairline fracture may be difficult to discern. No discrete erosive or destructive changes are seen. There is extensive edema over the dorsum and plantar surfaces of the foot. No subcutaneous emphysema is identified. 03/08/21 XR tibia: Osteopenia. No radiographic evidence of osteomyelitis. Marked generalized soft tissue prominence or swelling greatest proximally without evidence of soft tissue gas 03/08/21 XR ankle: Osteopenia. No radiographic evidence to suggest osteomyelitis. Generalized soft tissue prominence or swelling without evidence of soft tissue gas. Pending Results at Time of Discharge None Follow Up Appointment(s): Future Appointments Date Time Provider Department Center 04/20/2021 2:00 PM GILLIAN Pérez AKR [facility] Item (more content not included)... 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 ANB Condition at Discharge: Fair Disposition at Discharge: [facility] Vital Signs: T PRBPSpO2 [id number]/6595% Date/Time02/10 13: 13: 5: 13: 13:30 Range(36.1C - 37.7C ) (61 - 73 ) (18 - 18 ) (143 - 210 )/ (63 - 85 ) (94% - 95% ) Highest temp of 37.7 C was recorded at 02/09 19:55 Date: Weight/Scale Type:Height: 06-Feb-2021 16:69786.7 kg / gup678.1 cm Physical Exam: Constitutional: Well developed , awake/alert/oriented x3, in no distress,Alexx obese Eyes: Clear sclera ENMT: mucous membranes are moist, no apparent injury, no lesions seen, Head/neck: Neck supple, trachea is midline, no apparent injury, no JVD, no bruits, no mass, no stridor Respiratory/thorax: Breath sounds clear and equal bilaterally with good chest expansion, thorax symmetric Cardiovascular: Regular, rate and rhythm, no murmurs, 2+ radial pulses, right DP biphasic, left DP and PT biphasic. Gastrointestinal: Nondistended soft nontender no rebound tenderness or guarding no masses palpable no organomegaly, positive bowel sounds, no bruits, large pannus. Musculoskeletal: Moves all extremities weakly lower extremities minimal movement, limited range of motion , Extremities: Lower extremities extensive edema with erythema, no cyanosis, contusions or wounds, no clubbing Neurological: Alert and oriented x3, Lymphatic: No significant lymphadenopathy Skin: Warm and dry, no lesions, no rashes Psychological: Appropriate mood and behavior Hospital Course: SALAZAR COYLE is a 70 year old female with PMHx of morbid obesity, bedridden status with chronic Jose, HFpEF, anemia, diabetes, HTN, chronic leg lymphedema/chronic venous stasis complicated by leg wounds, right heel ulcer, severe osteoporosis of the right hip and knee (pt not a surgical candidate 2/2 comorbidities), chronic hypoxemic respiratory failure on 2 L home O2, chronic pain followed by palliative care and on chronic opioids, and paroxysmal atrial fibrillation. She was admitted 02/02 - 02/06/21 to [facility] from [facility] for right foot osteomyelitis which was treated with IV vancomycin and Zosyn. Bedside debridement was performed by podiatry and deep tissue culture was sent 02/04/21. (Blood cultures are negative x 72 hrs). She had extreme pain uncontrolled with medications during bedside dressing change. She had been refusing imaging tests and routine evaluations. Evidently she has been refusing to have anyone remove her bandage or touch her foot and screams out if anyone goes near her leg. There was concern that she may pose a significant anesthesia risk given her multiple comorbidities. Podiatry felt her to be at high risk of loss of limb and that she would benefit from TMA or BKA but recommend vascular workup first. She was unable to tolerate MONICA/TBI at [facility]. She was recommended transfer to a tertiary care center where more services are available for further management. She was admitted to [facility] om 02/06/21. Case has been discussed with vascular surgery as well as cardiology and medicine at [facility]. Pt has longstanding lower extremity problem. Given patient's multiple comorbidities will recommend conservetive care by way of local wound care as she tolerates and antibiotic therapy. Off load the heel. Unable to do stress test due to body habitus. High risk for an extensive vascular surgery Conservative care. Based on the right foot wound culture, that grow MRSA S. aureus, ID recommended IV Vancomycyn for 42 days, wound care and pain management. Medical History: Anemia: Paroxysmal atrial fibrillation: Onset Date: 06-Feb-2021 Chronic pain: Chronic respiratory failure with hypoxia, on home oxygen therapy: Osteoporosis: Diabetes mellitus: Venous stasis: Lymphedema: HTN (hypertension): Heart failure with preserved ejection fraction: Bedbound: Obesity: Discharge Information: and Continuing Care: Lab Results - Pending: Culture, Miscellaneous, includes Gram Stain Drawn at 08-Feb-2021 16:24:00 Radiology Results - Pending: None Discharge Instructions: Activity: activity as tolerated. Nutrition/Diet: diabetic/carbohydrate counted Diabetic/Carbo (more content not included)... [facility] 02-06-2021 Note History of Present I llness: HPI: SALAZAR COYLE is a 70 year old female with PMHx of morbid obesity, bedridden status with chronic Jose, HFpEF, anemia, diabetes, HTN, chronic leg lymphedema/chronic venous stasis complicated by leg wounds, right heel ulcer, severe osteoporosis of the right hip and knee (pt not a surgical candidate 2/2 comorbidities), chronic hypoxemic respiratory failure on 2 L home O2, chronic pain followed by palliative care and on chronic opioids, and paroxysmal atrial fibrillation. She was admitted 02/02 - 02/06/21 to [facility] from [facility] for right foot osteomyelitis which was treated with IV vancomycin and Zosyn. Bedside debridement was performed by podiatry and deep tissue culture was sent 02/04/21. (Blood cultures are negative x 72 hrs). She had extreme pain uncontrolled with medications during bedside dressing change. She had been refusing imaging tests and routine evaluations. Evidently she has been refusing to have anyone remove her bandage or touch her foot and screams out if anyone goes near her leg. There was concern that she may pose a significant anesthesia risk given her multiple comorbidities. Podiatry felt her to be at high risk of loss of limb and that she would benefit from TMA or BKA but recommend vascular workup first. She was unable to tolerate MONICA/TBI at [facility]. She was recommended transfer to a tertiary care center where more services are available for further management. Eliquis was held in the event of surgery. She denies pain (unless her right foot is moved), SOB, fevers. Remainder of ROS is negative. Comorbidities: Comorbidites: Comorbid Conditionsatrial fibrillation, congestive heart failure, diabetes, hypertension Type of Atrial FibrillationParoxysmal Type of Congestive Heart Failurediastolic CHF Additional SpecificityN/A Diabetes TypeType 2 Insulin Dependentno DM Acuity or Statusunknown DM Complicationsunknown Family History: CAD: yes Social History: Social History: Smoking Statusnever smoker (1) Alcohol Usedenies(1) Drug Usedenies (1) Drug 2 Usedenies (1) Allergies: No Known Allergies: Medications Prior to Admission: Admission Medication Reconciliation has not been completed for this patient. Objective: Objective Information: T PRBPSpO2 [id number]/6292% Date/Time02/06 11: 11: 11: 11: 11:09 Range(36.4C - 36.4C ) (77 - 77 ) (19 - 19 ) (142 - 142 )/ (62 - 62 ) (92% - 92% ) Physical Exam by System: Constitutional: Well developed, awake/alert/oriented x3, no distress, cooperative Eyes: EOMI, clear sclera ENMT: mucous membranes moist, no apparent injury, no lesions seen Head/Neck: Neck supple, no apparent injury, trachea midline Respiratory/Thorax: Patent airways, CTAB, normal breath sounds with good chest expansion, thorax symmetric Cardiovascular: Regular rate and rhythm, no murmurs, normal S 1and S 2 Gastrointestinal: Nondistended, soft, non-tender, morbidly obese, +BS, no bruits Genitourinary: Jose draining clear yellow urine Musculoskeletal: ROM intact, no joint swelling, weakened strength, pt bedbound Extremities: normal extremities, no cyanosis, contusions or wounds, no clubbing, +BLE lymphedema Neurological: no focal deficit, pt bedbound, intact senses, motor, response and reflexes, normal strength Psychological: Appropriate mood and behavior Skin: Mild erythema over upper arms; BLE lymphedema with rough scaly appearance, fresh and dried serous draining sores, erythema, dried/scaly white cream noted on RLE, boot placed on right foot Medications: Medications: Continuous Medications No continuous medications are active Scheduled Medications 1. Acetaminophen: 975 mg Oral Every 8 Hours 2. Ascorbic Acid: 500 mg Oral Daily 3. Aspirin Enteric Coated: 81 mg Oral Daily 4. Atorvastatin: 20 mg Oral Daily 5. Baclofen: 20 mg Oral 3 Times a Day 6. Bumetanide: 0.5 mg Oral 2 Times a Day 7. Docusate 50 mg - Senna 8.6 m tablet(s) Oral 2 Times a Day 8. Donepezil: 5 mg Oral At Bedtime 9. Gabapentin: 300 mg Oral 2 Times a Day 10. Insulin Glargine (Lantus) Injectable: 55 unit(s) SubCutaneous Daily Before First Meal 11. Insulin Glargine (Lantus) Injectable: 35 unit(s) SubCutaneous At Bedtime 12. Insulin Lispro Mild Corrective Scale: unit(s) SubCutaneous 4 Times a Day Insulin Timing 13. Lactobacillus: 1 each Oral Daily 14. Lidocaine 5% TransDermal: 1 patch TransDermal Every 24 Hours 15. Magnesium Oxide: 400 mg Oral Daily 16. Multivitamin with Minerals: 1 tablet(s) Oral Once 17. oxyCODONE Extended Release: 10 mg Oral Every 12 Hours 18. Piperacillin - Tazobactam 3.375 gram/Iso-osmotic 50 mL Premix IVPB: 50 mL IntraVenous Piggyback Every 6 Hours 19. Vancomycin IV Piggy Back: 1250 mg IntraVenous Piggyback Every 12 Hours P (more content not included)... [facility] 02-06-2021 Note Send Summary: Discharge Summary Providers: Provider RoleProvider Name PrimaryDiego Elmore Note Recipients: Diego Elmore MD - [id number] [] Discharge: Summary: Admission Date: .02-Feb-2021 18:10:00 Discharge Date: 06-Feb-2021 Attending Physician at Discharge: Km Parry Admission Reason: lower leg wound and cellutlitis Final Discharge Diagnoses: Cellulitis, Cellulitis of lower extremity, Obesities, morbid Procedures: wound biopsy Condition at Discharge: Fair Disposition at Discharge: [facility] Vital Signs: T PRBPSpO2 [id number]/6195% Date/Time02/06 7: 7: 7: 7: 7:48 Range(36.5C - 37.3C ) (69 - 88 ) (16 - 18 ) (103 - 165 )/ (60 - 76 ) (91% - 95% ) Highest temp of 37.3 C was recorded at 02/06 7:48 Date: Weight/Scale Type:Height: 02-Feb-2021 23:06973.7 kg / znp793.1 cm Physical Exam: Patient seen and examined Cries out when approach for evaluation without touching patient Neuro: Alert and oriented. morbid obesity Resp: LS CTA bilaterally Cardiac: RRR ABD: distended due to obesity, soft, non tender, BS present Skin warm, dry Lower extremity cellulitis, multiple oozing/redness/edema; bilateral lower extremities, lower right foot wrapped s/p wound biopsy with podiatry, had erythema and necrotic tissue toes and planter of right foot. Has sacral redness, excoriations, multiple skin redness excoriation to groin and legs Hospital Course: SALAZAR COYLE is a 70 year old Female Who [facility] room for right foot infection. On presentation, blood pressure 137/63, heart rate 93, respiratory rate 20, afebrile, saturation of 23% on room air. Pertinent findings on blood work-up; hemoglobin 10.3, ESR 79, and CRP 16.35. Chest x-ray did not show any significant findings. X-ray of the right foot showed moderate diffuse soft tissue swelling along with air trapping in between the skin creases. Patient was given in the emergency room vancomycin and Zosyn and IV fluids and then admitted to the medical service for further investigation management. Upon encounter now, patient reports that she is having severe pain in her right leg and right foot area. Denies having any subjective fever or chills. She is not a good historian. She is oriented however. Patient at baseline is nonambulatory because of her morbid obesity and because of her severe pain in her right hip and right knee. She is total care except that she can still eat by herself. She is bedbound. Review of Systems: 10 systems were reviewed and were negative except for those noted in the history of present illness. Past medical history: Morbid obesity, diastolic congestive heart failure, diabetes, hypertension, chronic leg lymphedema/chronic venous stasis complicated by leg wounds, right heel ulcer, severe osteoporosis of the right hip and the right knee requiring surgical repair but patient not a candidate because of the underlying comorbidities, chronic hypoxemic respiratory failure on 2 L nasal cannula oxygen continuous, chronic pain followed by palliative care and on chronic opioids, and paroxysmal atrial fibrillation Past surgical history: Tonsillectomy, appendectomy, tubal ligation Social history: Nonsmoker, no alcohol abuse, [facility] Hospital course: Patient was placed on IV Vancomycin and IV Zosyn. Has chronic jose, did show urinary tract infection. Nursing report patient required a lot of helena care and bathing on admission. Lower right extremity had foul smell and bloody serous discharge, wrapped in a dressing from nursing facility. Patient has various skin breakdown with excoriations and redness and oozing. See nursing notes for documented wounds on exam. Patient would refuse inspections and dressing changes until Podiatry came to examine her. Daughter indicated patient requires ativan with any type of movement with her right leg. VSS. No leukocytosis, afebrile, blood cultures to date negative. Wound biopsy reported, awaiting sensitivity. Being transferred to [facility] for vascular consult. Patient was seen by podiatry here see note: Podiatry Dr. Martinez note: Per patient, she is admitted as nurses noted worsening R foot wound over the last several days. She denies fever/ chills. States her dressing is changed at facility but admits it is excruciatingly painful and will not let anyone touch it. Since her admission here she has refused to let anyone change or touch dressing d/t extreme hip/leg pain. She also refused MONICA/TBI because of pain with pressure of cuffs. Did not attempt arterial duplexes. She is nonambulatory for several years at baseline. Examination and evaluation performed. Discussed findings with patient in person and daughter who is POA over phone Bedside debridement performed, deep tissue culture sent for micro -Wound dressed with (more content not included)... [facility] 02-02-2021 Note History of Present I llness: HPI: SALAZAR COYLE is a 70 year old Female Who [facility] room for right foot infection. On presentation, blood pressure 137/63, heart rate 93, respiratory rate 20, afebrile, saturation of 23% on room air. Pertinent findings on blood work-up; hemoglobin 10.3, ESR 79, and CRP 16.35. Chest x-ray did not show any significant findings. X-ray of the right foot showed moderate diffuse soft tissue swelling along with air trapping in between the skin creases. Patient was given in the emergency room vancomycin and Zosyn and IV fluids and then admitted to the medical service for further investigation management. Upon encounter now, patient reports that she is having severe pain in her right leg and right foot area. Denies having any subjective fever or chills. She is not a good historian. She is oriented however. Patient at baseline is nonambulatory because of her morbid obesity and because of her severe pain in her right hip and right knee. She is total care except that she can still eat by herself. She is bedbound. Review of Systems: 10 systems were reviewed and were negative except for those noted in the history of present illness. Past medical history: Morbid obesity, diastolic congestive heart failure, diabetes, hypertension, chronic leg lymphedema/chronic venous stasis complicated by leg wounds, right heel ulcer, severe osteoporosis of the right hip and the right knee requiring surgical repair but patient not a candidate because of the underlying comorbidities, chronic hypoxemic respiratory failure on 2 L nasal cannula oxygen continuous, chronic pain followed by palliative care and on chronic opioids, and paroxysmal atrial fibrillation Past surgical history: Tonsillectomy, appendectomy, tubal ligation Social history: Nonsmoker, no alcohol abuse, [facility] at [facility] Family history: Heart disease Comorbidities: Comorbidites: Comorbid Conditionshypertension Allergies: No Known Allergies: Medications Prior to Admission: ascorbic acid 500 mg oral tablet: 1 tab(s) orally once a day Multi Vitamin+: 1 tab(s) orally once a day aspirin 81 mg oral delayed release tablet: 1 tab(s) orally once a day gabapentin 300 mg oral capsule: 1 cap(s) orally 2 times a day magnesium oxide 400 mg (241.3 mg elemental magnesium) oral tablet: 1 tab(s) orally once a day donepezil 5 mg oral tablet: 1 tab(s) orally once a day (at bedtime) lidocaine 4% patch: Apply topically to affected area once a day (apply 1 to left thigh and 1 to right hip) Eliquis 5 mg oral tablet: 1 tab(s) orally 2 times a day metFORMIN 1000 mg oral tablet: 1 tab(s) orally 2 times a day oxyCODONE 5 mg oral tablet: 1 tab(s) orally every 6 hours, As Needed pain OxyCONTIN 10 mg oral tablet, extended release: 1 tab(s) orally 2 times a day baclofen 10 mg oral tablet: 2 tab(s) orally 3 times a day Bumex 0.5 mg oral tablet: 1 tab(s) orally 2 times a day insulin lispro 100 units/mL subcutaneous solution: subcutaneous 3 times a day (before meals) Lantus 100 units/mL subcutaneous solution: unit(s) subcutaneous 2 times a day. 55 units in AM and 35 units in PM Lipitor 20 mg oral tablet: 1 tab(s) orally once a day nitrofurantoin macrocrystals 50 mg oral capsule: 1 cap(s) orally once a day (at bedtime) Senna Plus 50 mg-8.6 mg oral tablet: 2 tab(s) orally 2 times a day Tylenol 500 mg oral tablet: 2 tab(s) orally 3 times a day Zofran 4 mg oral tablet: 1 tab(s) orally every 8 hours, As Needed. Objective: Objective Information: T PRBPSpO2 [id number]/7594% Date/Time02/02 18: 21: 21: 21: 21:00 Range(37.7C - 37.7C ) (84 - 93 ) (18 - 20 ) (129 - 137 )/ (63 - 75 ) (93% - 94% ) Highest temp of 37.7 C was recorded at 02/02 18:17 Pain reported at 02/02 18:17: 10 = Severe Physical Exam by System: Constitutional: awake/alert/oriented x3, not in acute distress, significantly obese Eyes: PERRL, EOMI, clear sclera ENMT: normal hearing, mucous membranes moist, no pharyngeal erythema or exudates Head/Neck: neck supple, no apparent injury, no JVD, no lymphadenopathy, trachea midline Respiratory/Thorax: patent airways, clear to auscultation bilaterally, no crackles or wheezing or rhonchi Cardiovascular: Regular, rate and rhythm, no murmurs, 2+ equal pulses of the extremities Gastrointestinal: Significantly distended from the obesity, positive bowel sounds, soft, non-tender, no rebound tenderness or guarding, no masses palpable, no organomegaly Extremities: Right lower leg and right foot severe erythema with a foul smell and drainage. There is dressing along the right foot that is wet with serous foul drainage. Neurological: intact senses, motor, response and reflexes, normal strength, babinski negative Psychological: Appropriate mood and behavior Skin: Pale color Recent Lab (more content not included)... [facility] Evaluation note Skin: warm dryEyes: PERRL, EOMI, clear scleraENMT: normal hearing, mucous membranes moist, no pharyngeal erythema or exudatesPsychological: Appropriate mood and behaviorCardiovascular: Regular, rate and rhythm, no murmurs, 2+ equal pulses of the extremitiesRespiratory/Thorax: patent airways, clear to auscultation bilaterally, no crackles or wheezing or rhonchiGastrointestinal: Significantly distended from the obesity, positive bowel sounds, soft, non-tender, no rebound tenderness or guarding, no masses palpable, no organomegalyExtremities: wrapped after procedure with Dr. Martinez. I personally observed the right foot during podiatry exam and biopsy. black, drainage and foul smell noted, curretly wrapped, patient screams out don't touch when you go near her foot, refuses daily inspectionsNeurological: intact senses, motor, (patient refuses to have right foot touched, withdraws to pain)Head/Neck: neck supple, no apparent injury, no JVD, no lymphadenopathy, trachea midlineConstitutional: awake/alert/oriented x3, not in acute distress, significantly obese [facility] Evaluation note Neurological: AAOx3E xtremities: 4+ edema RLE - warm to touch - significant sensitivity over shinGastrointestinal: soft, nontenderCardiovascular: regular rhythm, no significant murmursRespiratory/Thorax: fair air movement b/lHead/Neck: no carotid bruitsEyes: EOMIConstitutional: NAD; severe morbid obesitySkin comment:Skin comment: right foot wound; [facility] Other Phone (unformatted): [phone] Evaluation note Diagnosis Foot ulcer (HCC)- Primary Ulcer of other part of foot Subacute osteomyelitis of right foot (HCC) 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) Type II or unspecified type diabetes mellitus with other specified manifestations, not stated as uncontrolled Palliative care encounter Encounter for palliative care Morbid obesity with BMI of 60.0-69.9, adult ([facility]) Cognitive decline Unspecified persistent mental disorders due to conditions classified elsewhere Encephalopathy acute Encephalopathy, unspecified WHITLEY (acute kidney injury) (HCC) Acute kidney failure, unspecified Acute respiratory failure (HCC) Acute respiratory failure Acute on chronic respiratory failure with hypercapnia ([facility]) Edema Wounds, multiple Open wound(s) (multiple) of unspecified site(s), without mention of complication Hypertension Unspecified essential hypertension Hyperlipemia Other and unspecified hyperlipidemia Anemia Anemia, unspecified Chronic indwelling Jose catheter Other postprocedural status PAF (paroxysmal atrial fibrillation) ([facility]) Atrial fibrillation Hyperglycemia Other abnormal glucose CKD (chronic kidney disease) Chronic kidney disease, unspecified Asymptomatic bacteriuria Other nonspecific finding on examination of urine documented in this encounter [facility] Work Phone: Evaluation note* Diagnosis Inflammatory reaction due to indwelling ureteral stent, initial encounter ([facility]) Chronic kidney disease, unspecified CKD stage Other chronic pain Inflammatory reaction due to indwelling ureteral stent, initial encounter ([facility]) [facility] Radicular pain in right arm- Primary Unspecified neuralgia, neuritis, and radiculitis Radicular pain in right arm Unspecified neuralgia, neuritis, and radiculitis Neck muscle spasm Cystitis Unspecified cystitis 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 ([facility]) Degenerative disc disease, cervical [facility] Diagnosis Severe sepsis ([facility])- Primary Asymptomatic bacteriuria Other nonspecific finding on examination of urine Chronic heart failure with preserved ejection fraction ([facility]) Severe sepsis ([facility]) 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, stage 3 ([facility]) Degenerative disc disease, cervical Calculus of ureter [facility] Diagnosis Ureteropelvic junction calculus- Primary [facility] Diagnosis Acute cystitis without hematuria- Primary Left ureteral calculus Calculus of ureter Calculus of ureter [facility] Diagnosis Altered mental status, unspecified altered mental status type- Primary Altered mental status, unspecified altered mental status type Morbidly obese ([facility]) Morbid obesity Patient immobile for more than 24 hours Cellulitis, unspecified cellulitis site Fungal infection Other and unspecified mycoses Swelling of right upper extremity Urinary tract infection with hematuria, site unspecified Kidney calculi Calculus of kidney Complicated UTI (urinary tract infection) Lack of intravenous access Left ureteral calculus Calculus of ureter Wounds, multiple Open wound(s) (multiple) of unspecified site(s), without mention of complication Hypertension Unspecified essential hypertension Recurrent UTI Urinary tract infection, site not specified Kidney calculi Calculus of kidney Calculus of ureter [facility]* Diagnosis Acute cystitis without hematuria- Primary Left ureteral calculus Calculus of ureter Calculus of ureter [facility]* Diagnosis Left ureteral calculus- Primary Calculus of ureter [facility]* Diagnosis Renal calculus, left- Primary Calculus of kidney Chronic indwelling Jose catheter [facility]* Diagnosis Septic shock (CMS/HCC) (HCC)- Primary Septic shock (CMS/HCC) (HCC) Kidney stone Calculus of kidney Calculus of ureter documented in this encounter [facility] note* Diagnosis Sepsis (HCC)- Primary Sepsis (HCC) Left ureteral calculus Calculus of ureter Wounds, multiple Open wound(s) (multiple) of unspecified site(s), without mention of complication 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, stage 3 (HCC) Dependence on respirator (ventilator) status (HCC) Critical ischemia of lower extremity (HCC) Chronic heart failure with preserved ejection fraction (HCC) Chronic kidney disease, stage 3b (HCC) 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, stage 3 (HCC) Dependence on respirator (ventilator) status (HCC) Critical ischemia of lower extremity (HCC) Chronic heart failure with preserved ejection fraction (HCC) Chronic kidney disease, stage 3b (HCC) documented in this encounter [facility] note* Diagnosis Encephalopathy- Primary Unspecified encephalopathy Encephalopathy Unspecified encephalopathy Urinary tract infection without hematuria, site unspecified Lymphedema of both lower extremities Cellulitis of right lower limb documented in this encounter [facility] Discharge instructions* Additional Orders:Additional Instructions: discharge to [facility] via ambulance transport to [facility] Discharge instructions* Activity:activity as tolerated. * Labs 1 (Modify Template):Lab Test(s): CBC with dif, Comprehensive Metabolic Panel, CRP, ESRDate To Be Drawn: every weeklyCall Results To: dr. Santiago Results To: [phone] * Wound Care 1:Other Instructions: BLE: daily cleanse with Vashe, apply Silvadene and alginate dressing once daily.Right foot, daily cleanse with vasche, apply Silvadene and alginate dressing once daily, keep Mepilex on the right heel, keep pressure off the right heel. * Line Care (Gold Form or Patient Managed):Line Care for Adults. Access Type: PICC. Site: Right. Sodium Chloride 0.9% Injectable 10 mL Intravenous flush every 8 hours and as needed - via PICC. Notify MD if line becomes sluggish to draw or flush. Do not use arm that contains the line for BP or phlebotomy. Notify MD of pain and/or swelling in PICC arm, shoulder and/or neck. Notify MD of temp > 100.2 F, shortness of breath, elevated heart rate or abnormal rhythm. Notify MD of bleeding, swelling, purluent draining at exit site, and/or catheter dislodgement. Change transparent dressing, stat lockand biopatch every 7 days and as needed. Cleanse with chloraprep. Use betadine only if patient has allergy to chloraprep. Change 24 hours after initial insertion. Flush PICC before and after intermittent medication infusion with 0.9% saline. Use SASH method for lines without fluids continuously infusing: Saline, Administer Med, Saline, Heparin flush. Measure mid-upper arm circumference. Measure external catheter length. * Catheter Care:Type: indwelling * Additional Orders:Blood Glucose Monitoring: ACHSAdditional Instructions: Thank you for choosing [facility] - it has been a pleasure taking part in your medical care. Please follow up with your Primary Medical Physician within 1 week of discharge and any specialists asnoted within 1-2 weeks for further workup. If your symptoms should persist or worsen, please returnimmediately to the nearest Emergency Room for further care. If you have any questions about the care you received please call [facility] at .Additional Instructions*You have been started on a new medication, please carefully review dosing regimen. * Care Recommendation:I recommend that INPATIENT care is required at: SkilledEstimated Stay: Convalescent stay < 30 daysPrognosis: GoodRehab Potential/Function: Improve * Therapy Orders:Occupational Therapy Orders: Eval and Treat ([facility])Physical Therapy Orders: Eval and Treat ([facility])Speech Therapy Orders: Eval and Treat ([facility]) * Provider Follow Up:Physician To Follow at Skilled/Rehab: Attending Physician at Skilled/Rehab * Follow Up Appointment 1:Physician/Dept/Service: dr. Zaragozaocation: [facility]:[phone]: call fo appt in 3 weeks * IV Hydration:Type Of Vascular Access: PICCPICC Insertion Date: [id number] Location: right upper armPICC Device Type: single lumen * Safety:Siderails: yesSiderails Number/Reason: 2/safetyRestraints: noSitter: noFall Risk: weakness * Pressure Ulcer 1:Location: right buttockDressing: mepilex [facility] Other Phone (unformatted): [phone] Discharge instructions* Attachments The following attachments cannot be sent through Care Everywhere. 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) Procedures [place] OFFICE/OUTPATIENT NEW HIGH MDM 60-74 MINUTES Poornima Escobedo APRN - CNP [address] [place] [address] Referral ID Status Reason Start Date Expiration Date Visits Requested Visits Authorized [id number] Pending Review Specialty Services Required 3 01/10/2024 1 1 [facility] for referral (narrative)* Consultation (Routine) - Pending Review Specialty Diagnoses / Procedures Referred By Contac t Referred To Contact Wound Care Diagnoses 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, stage 3 (HCC) Procedures [place] OFFICE/OUTPATIENT NEW HIGH MDM 60 MINUTES Poornima Escobedo APRN - CNP [address] [place] [address] [facility] [address] [place] [address] Referral ID Status Reason Start Date Expiration Date Visits Requested Visits Authorized [id number] Pending Review Specialty Services Required 08/01/2023 07/31/2024 1 1 [facility] Summary Purpose Family History No Family History Records FoundNo Family History Records FoundNo Family History Records FoundNo Family History Records FoundNo Family History Records FoundNo Family History Records FoundNo Family History Records FoundNo Family History Records FoundNo Family History Records FoundNo Family History Records Found Advance Directives No Advanced Directives Records FoundDocuments on File Type Date Recorded Patient Registered Nurse Maternity Expl anation ACP-Advance Directive ACP-Power of Sheet Metal Supervisor Latest Code Status on File Code Status Date Activated Date Inactivated Comments Full Code 03/13/2021 2:11 PM Full Code 03/08/2021 9:19 PM 03/13/2021 2:11 PM Documents on File Type Date Recorded Patient Registered Nurse Maternity Expl anation Advance Directives and Livin g Will 06/19/2022 10:01 AM Advance Directives and Livin g Will 03/08/2021 Latest Code Status on File Code Status Date Activated Date Inactivated Comments Full Code 06/11/2022 3:56 AM 06/16/2022 7:52 PM Latest Code Status on File Code Status Date Activated Date Inactivated Comments Full Code 08/02/2022 8:09 PM Code Status History Code Status Date Activated Date Inactivated Comments Full Code 06/11/2022 3:56 AM 06/16/2022 7:52 PM Latest Code Status on File Code Status Date Activated Date Inactivated Comments Full Code 08/02/2022 8:09 PM 08/07/2022 6:18 PM Documents on File Type Date Recorded Patient Registered Nurse Maternity Expl anation Power of Sheet Metal Supervisor 01/08/2023 3:53 AM Previ ously scanned Advance Directives and Living Will 01/08/2023 3:52 AM Previously scanned Advance Directives and Living Will 06/19/2022 10:01 AM Advance Directives and Living Will 03/08/2021 Latest Code Status on File Code Status Date Activated Date Inactivated Comments Full Code 01/08/2023 1:00 PM 01/11/2023 8:52 PM Code Status History Code Status Date Activated Date Inactivated Comments Full Code 08/02/2022 8:09 PM 08/07/2022 6:18 PM Full Code 06/11/2022 3:56 AM 06/16/2022 7:52 PM Latest Code Status on File Code Status Date Activated Date Inactivated Comments Full Code 07/30/2023 9:44 PM 08/09/2023 7:18 PM Code Status History Code Status Date Activated Date Inactivated Comments Full Code 01/08/2023 1:00 PM 01/11/2023 8:52 PM Full Code 08/02/2022 8:09 PM 08/07/2022 6:18 PM Full Code 06/11/2022 3:56 AM 06/16/2022 7:52 PM Documents on File Type Date Recorded Patient Registered Nurse Maternity Expl anation Advance Directives and Living Will 08/10/2023 9:07 AM Power of Sheet Metal Supervisor 01/08/2023 3:53 AM Previ ously scanned Advance Directives and Living Will 01/08/2023 3:52 AM Previously scanned Advance Directives and Living Will 06/19/2022 10:01 AM Advance Directives and Living Will 03/08/2021 Date Activated Date Inactivated Comments 07/30/2023 9:44 PM 08/09/2023 7:18 PM Date Activated Date Inactivated Comments 01/08/2023 1:00 PM 01/11/2023 8:52 PM Date Activated Date Inactivated Comments 08/02/2022 8:09 PM 08/07/2022 6:18 PM Date Activated Date Inactivated Comments 06/11/2022 3:56 AM 06/16/2022 7:52 PM Date Activated Date Inactivated Comments 09/27/2023 10:14 AM Date Activated Date Inactivated Comments 07/30/2023 9:44 PM 08/09/2023 7:18 PM Date Activated Date Inactivated Comments 01/08/2023 1:00 PM 01/11/2023 8:52 PM Date Activated Date Inactivated Comments 08/02/2022 8:09 PM 08/07/2022 6:18 PM Date Activated Date Inactivated Comments 06/11/2022 3:56 AM 06/16/2022 7:52 PM Documents on File Type Date Recorded Patient Registered Nurse Maternity Expl anation Advance Directives and Living Will 08/10/2023 9:07 AM Power of Sheet Metal Supervisor 01/08/2023 3:53 AM Previ ously scanned Advance Directives and Living Will 01/08/2023 3:52 AM Previously scanned Advance Directives and Living Will 06/19/2022 10:01 AM Advance Directives and Living Will 03/08/2021 Date Activated Date Inactivated Comments 09/27/2023 10:14 AM 09/27/2023 7:00 PM Date Activated Date Inactivated Comments 07/30/2023 9:44 PM 08/09/2023 7:18 PM Date Activated Date Inactivated Comments 01/08/2023 1:00 PM 01/11/2023 8:52 PM Date Activated Date Inactivated Comments 08/02/2022 8:09 PM 08/07/2022 6:18 PM Date Activated Date Inactivated Comments 06/11/2022 3:56 AM 06/16/2022 7:52 PM Date Activated Date Inactivated Comments 09/27/2023 10:14 AM 09/27/2023 7:00 PM Documents on File Type Date Recorded Patient Registered Nurse Maternity Expl anation Power of Sheet Metal Supervisor 11/22/2023 8:38 PM Advance Directives and Living Will 08/10/2023 9:07 AM Power of Sheet Metal Supervisor 01/08/2023 3:53 AM Previ ously scanned Advance Directives and Living Will 01/08/2023 3:52 AM Previously scanned Advance Directives and Living Will 06/19/2022 10:01 AM Advance Directives and Living Will 03/08/2021 Date Activated Date Inactivated Comments 11/23/2023 9:09 PM Question Answer Comments ICU transfer: Yes Intubation: No Date Activated Date Inactivated Comments 11/23/2023 2:49 AM 11/23/2023 9:09 PM Date Activated Date Inactivated Comments 09/27/2023 10:14 AM 09/27/2023 7:00 PM Date Activated Date Inactivated Comments 07/30/2023 9:44 PM 08/09/2023 7:18 PM Date Activated Date Inactivated Comments 01/08/2023 1:00 PM 01/11/2023 8:52 PM Date Activated Date Inactivated Comments 11/23/2023 9:09 PM 11/30/2023 12:34 AM Documents on File Type Date Recorded Patient Registered Nurse Maternity Expl anation DNR (Do Not Resuscitate) 11/30/2023 11:07 AM Power of Sheet Metal Supervisor 11/22/2023 8:38 PM Advance Directives and Living Will 08/10/2023 9:07 AM Power of Sheet Metal Supervisor 01/08/2023 3:53 AM Previ ously scanned Advance Directives and Living Will 01/08/2023 3:52 AM Previously scanned Advance Directives and Living Will 06/19/2022 10:01 AM Advance Directives and Living Will 03/08/2021 Date Activated Date Inactivated Comments 01/03/2024 9:48 AM 01/03/2024 4:25 PM Date Activated Date Inactivated Comments 11/23/2023 9:09 PM 11/30/2023 12:34 AM Question Answer Comments ICU transfer: Yes Intubation: No Date Activated Date Inactivated Comments 11/23/2023 2:49 AM 11/23/2023 9:09 PM Date Activated Date Inactivated Comments 09/27/2023 10:14 AM 09/27/2023 7:00 PM Date Activated Date Inactivated Comments 07/30/2023 9:44 PM 08/09/2023 7:18 PM Documents on File Type Date Recorded Patient Registered Nurse Maternity Expl anation DNR (Do Not Resuscitate) 11/30/2023 11:07 AM Power of Sheet Metal Supervisor 11/22/2023 8:38 PM Advance Directives and Living Will 08/10/2023 9:07 AM Power of Sheet Metal Supervisor 01/08/2023 3:53 AM Previ ously scanned Advance Directives and Living Will 01/08/2023 3:52 AM Previously scanned Advance Directives and Living Will 06/19/2022 10:01 AM Advance Directives and Living Will 03/08/2021 Date Activated Date Inactivated Comments 01/03/2024 9:48 AM 01/03/2024 4:25 PM Date Activated Date Inactivated Comments 11/23/2023 9:09 PM 11/30/2023 12:34 AM Question Answer Comments ICU transfer: Yes Intubation: No Date Activated Date Inactivated Comments 11/23/2023 2:49 AM 11/23/2023 9:09 PM Date Activated Date Inactivated Comments 09/27/2023 10:14 AM 09/27/2023 7:00 PM Date Activated Date Inactivated Comments 07/30/2023 9:44 PM 08/09/2023 7:18 PM Documents on File Type Date Recorded Patient Registered Nurse Maternity Expl anation Advance Directives and Living Will 03/08/2021 Date Activated Date Inactivated Comments 10/09/2024 6:16 PM 10/18/2024 1:12 PM Date Activated Date Inactivated Comments 01/03/2024 9:48 AM 01/03/2024 4:25 PM Date Activated Date Inactivated Comments 11/23/2023 9:09 PM 11/30/2023 12:34 AM Question Answer Comments ICU transfer: Yes Intubation: No Date Activated Date Inactivated Comments 11/23/2023 2:49 AM 11/23/2023 9:09 PM Date Activated Date Inactivated Comments 09/27/2023 10:14 AM 09/27/2023 7:00 PM Documents on File Type Date Recorded Patient Registered Nurse Maternity Expl anation DNR (Do Not Resuscitate) [place] DNR (Do Not Resuscitate) 10/20/2024 11:31 AM DNR (Do Not Resuscitate) 11/30/2023 11:07 AM Power of Sheet Metal Supervisor 11/22/2023 8:38 PM Advance Directives and Living Will 08/10/2023 9:07 AM Power of Sheet Metal Supervisor 01/08/2023 3:53 AM Previ ously scanned Advance Directives and Living Will 01/08/2023 3:52 AM Previously scanned Advance Directives and Living Will 06/19/2022 10:01 AM Advance Directives and Living Will 03/08/2021 DNR (Do Not Resuscitate) 02/04/2025 11:15 AM [place] DNR Form Date Activated Date Inactivated Comments 02/03/2025 1:15 PM 02/04/2025 4:45 PM Question Answer Comments ICU transfer: Yes Intubation: No Date Activated Date Inactivated Comments 01/29/2025 1:20 PM 02/03/2025 1:15 PM Date Activated Date Inactivated Comments 10/09/2024 6:16 PM 10/18/2024 1:12 PM Date Activated Date Inactivated Comments 01/03/2024 9:48 AM 01/03/2024 4:25 PM Date Activated Date Inactivated Comments 11/23/2023 9:09 PM 11/30/2023 12:34 AM Question Answer Comments ICU transfer: Yes Intubation: No Hospital Course Note HNO ID: [id number] Author: Alyssa Lemon Service: Hospital Medicine Author Type: Physician Type: Discharge Summaries Filed: 01/16/2018 6:21 PM Note Text: DISCHARGE SUMMARY PATIENT NAME: Salazar Coyle Code Status: DNR-CCA Highest Readmission Risk Score: 30 The 30 day readmissions risk score is derived from an internally validated risk model which evaluates patient level characteristics, utilization history, medication orders and lab results up until the day of discharge. Patients with a score of 40 or above are considered highest risk for readmission. Specific patient level drivers will be listed at the bottom of the summary. Admission Information Admission Information ADMIT DATE: 01/04/2018 DISCHARGE DATE: 01/16/2018 MY DOCTORS AND MEDICAL TEAM: My Main Hospital Doctor: Araceli Lemon Primary Care Provider: No primary care provider on file. My Medical Team Members: Treatment Team: Attending Provider: Araceli Lemon Primary Service: Heriberto Suarez Consulting: Tye Mcclendon (more content not included)... Note HNO ID: [id number] Author: Kinjal Greco Service: Hospital Medicine Author Type: Physician Type: Discharge Summary Filed: 11/15/2018 11:25 AM Note Text: DISCHARGE SUMMARY PATIENT NAME: Salazar Coyle Code Status: Full Code Highest Readmission Risk Score: 42 The 30 day readmissions risk score is derived from an internally validated risk model which evaluates patient level characteristics, utilization history, medication orders and lab results up until the day of discharge. Patients with a score of 40 or above are considered highest risk for readmission. Specific patient level drivers will be listed at the bottom of the summary. Admission Information Admission Information ADMIT DATE: 07/02/2018 DISCHARGE DATE: 07/09/2018 MY DOCTORS AND MEDICAL TEAM: My Main Hospital Doctor: Susan Greco Primary Care Provider: Jeferson Madison DO My Medical Team Members: Treatment Team: Attending Provider: Susan Greco Primary Service: Heriberto Torrez MY CONDITION AT DISCHARGE: Stable R (more content not included)... 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 DATE CREATED AUTHOR AUTHOR'S ORGANIZ ATION 12/30/2020 [facility] DATE CREATED AUTHOR AUTHOR'S ORGANIZ ATION 02/20/2021 [facility] DATE CREATED AUTHOR AUTHOR'S ORGANIZ ATION 03/01/2021 [facility] DATE CREATED AUTHOR AUTHOR'S ORGANIZ ATION 04/16/2021 [facility] DATE CREATED AUTHOR AUTHOR'S ORGANIZ ATION 04/28/2021 [facility] DATE CREATED AUTHOR AUTHOR'S ORGANIZ ATION 08/05/2023 [facility] DATE CREATED AUTHOR AUTHOR'S ORGANIZ ATION 12/07/2024 [facility] DATE CREATED AUTHOR AUTHOR'S ORGANIZ ATION 02/05/2025 [facility] <item><item> Privacy Markings (unrecogniz ed section and content) Section Author: Christiane Beltran PROHIBITION ON REDISCLOSURE OF CONFIDENTIAL INFORMATION This notice accompanies a disclosure of information concerning a client made to you with the consent of such client. Section Author: Christiane Beltran PROHIBITION ON REDISCLOSURE OF CONFIDENTIAL INFORMATION This notice accompanies a disclosure of information concerning a client made to you with the consent of such client. Reason for Visit (unrecogniz ed section and content) Reason Comments Wound Infection pt presents to ed wi th wound infection to right foot that has been being treated by iv antibiotics Reason Onset Date Comments Surgery Scheduling 06/12/2022 Reason Onset Date Comments Surgery Scheduling 07/31/2022 Confirm trans portation Reason Comments jose replacement Specialty Diagnoses / Procedures Referred By Contac t Referred To Contact Diagnoses Inflammatory reaction due to indwelling ureteral stent, initial encounter ([facility]) Procedures T83.592A Deacon Tariq MD [address] [place] [address] [facility] [address] [place] [address] Referral ID Status Reason Start Date Expiration Date Visits Re quested Visits Authorized [id number] 1 1 Reason Comments Neck Pain Arm Pain Leg Pain Specialty Diagnoses / Procedures Referred By Contac t Referred To Contact Diagnoses Radicular pain in right arm Procedures / Hilda, MD Apolinar [address] [facility] [address] [place] [address] [facility] Emergency Dept [address] [place] [address] Referral ID Status Reason Start Date Expiration Date Visits Re quested Visits Authorized [id number] 1 1 Reason Comments Altered Mental Status Specialty Diagnoses / Procedures Referred By Contac t Referred To Contact Diagnoses Asymptomatic bacteriuria Severe sepsis (HCC) Chronic heart failure with preserved ejection fraction ([facility]) Procedures [id number] bacteriuria Maya Del Real, [address] [place] [address] [facility] [address] [place] [address] Referral ID Status Reason Start Date Expiration Date Visits Re quested Visits Authorized [id number] 1 1 Reason Onset Date Comments Care Coordination Outreach 09/27/2023 Transportation Issues 09/27/2023 Specialty Diagnoses / Procedures Referred By Giovani crespo Referred To Contact Diagnoses Calculus of ureter Procedures NJ CYSTOURETHROSCOPY NJ CYSTO W/URETEROSCOPY W/LITHOTRIPSY NJ CYSTO W/INSERT URETERAL STENT CYSTOSCOPY LEFT URETEROSCOPY, HOLMIUM LASER LITHOTRIPSY LEFT URETERAL STENT CHANGE Bashir Vásquez MD [address] [address] [facility] Main Or [address] [facility] [place] [address] Referral ID Status Reason Start Date Expiration Date Visits Re quested Visits Authorized [id number] 1 1 Reason Onset Date Comments Other 09/27/2023 Cancelled Appointment 09/27/2023 Reason Onset Date Comments Post-op Follow-up 11/25/2023 Hospital Follow-up 11/25/2023 Reason Comments Altered Mental Status Pt arrives via EMS from [facility] for AMS. Per EMS pt began acting confused and BGT was elevated starting at 5pm. Pt A&Ox4 at baseline but was A&Ox2 for facility. Pt is A&Ox3 upon arrival. Pt c/o pain to left arm and left leg. Specialty Diagnoses / Procedures Referred By Giovani crespo Referred To Contact Diagnoses Altered mental status, unspecified altered mental status type Procedures [id number] mental status, unspecified altered mental status type Jeffry Sal MD [address] [place] [address] [facility] Emergency Dept [address] [place] [phone] Referral ID Status Reason Start Date Expiration Date Visits Re quested Visits Authorized [id number] 1 1 Specialty Diagnoses / Procedures Referred By Giovani crespo Referred To Contact Diagnoses Calculus of ureter Procedures NJ CYSTOURETHROSCOPY NJ CYSTO W/URETEROSCOPY W/LITHOTRIPSY NJ CYSTO W/INSERT URETERAL STENT CYSTOSCOPY LEFT URETEROSCOPIC HOLMIUM LASER LITHOTRIPSY LEFT URETERAL STENT CHANGE Bashir Vásquez MD [address] [place] [address] Referral ID Status Reason Start Date Expiration Date Visits Re quested Visits Authorized [id number] 11/26/2023 1 1 Reason Onset Date Comments Other 01/02/2024 Procedure Reason Comments Altered Mental Status Fever Blood Infection Specialty Diagnoses / Procedures Referred By Contac t Referred To Contact Diagnoses Septic shock (CMS/HCC) (HCC) Procedures A41.9 Franchesca Mckeon MD [address] [place] [address] [facility] [address] [place] [address] Referral ID Status Reason Start Date Expiration Date Visits Re quested Visits Authorized [id number] 1 1 Reason Comments Altered Mental Status Specialty Diagnoses / Procedures Referred By Contac t Referred To Contact Diagnoses Sepsis ([facility]) Procedures .. Cristino Bruno DO [address] [facility] [address] [place] [address] Phone: tel: fax: [facility] Intensive Care Unit ICU [address] [place] [address] Phone: tel: Referral ID Status Reason Start Date Expiration Date Visits Re quested Visits Authorized [id number] 1 1 Reason Comments Altered Mental Status Pt arrives via EMS from [facility] for AMS. Per report pt family was visiting yesterday and noted pt was not herself. Normally aox4. Staff noted HR in 120s this am and not speaking normally and moaning all morning. Specialty Diagnoses / Procedures Referred By Contac t Referred To Contact Diagnoses Encephalopathy Procedures . Godwin Goetz MD [address] [place] [address] Phone: tel: fax: [facility] ED [address] [place] [address] Phone: tel: fax: Referral ID Status Reason Start Date Expiration Date Visits Re quested Visits Authorized [id number] 1 1 Ordered Prescriptions (unrec ognized section and content) Prescription Sig Dispensed Refills Start Date End Da te baclofen (LIORESAL) 5 MG tablet Take 1 tablet by mouth 2 times daily 0 04/14/2021 gabapentin (NEURONTIN) 100 MG capsule Take 1 capsule by mouth 2 times daily for 90 days. 60 capsule 2 04/14/2021 07/13/2021 sennosides-docusate sodium (SENOKOT-S) 8.6-50 MG tablet Take 2 tablets by mouth daily 0 04/14/2021 collagenase 250 UNIT/GM ointment Apply topically daily. 0 04/15/2021 04/23/2021 insulin glargine (LANTUS) 100 UNIT/ML injection vial Inject 28 Units into the skin nightly 10 mL 3 04/13/2021 melatonin 3 MG TABS tablet Take 1 tablet by mouth nightly 3 04/13/2021 mineral oil-hydrophilic petrolatum (AQUAPHOR) ointment Apply topically as needed. 0 04/13/2021 miconazole (MICOTIN) 2 % powder Apply topically 2 times daily. 45 g 1 04/13/2021 insulin lispro (HUMALOG) 100 UNIT/ML injection vial Inject 8 Units into the skin 3 times daily (with meals) 10 mL 3 04/13/2021 Scheduled Active and Recently Administ ered Medications (unrecognized section and content) Medication Order 04/13/2021 04/14/2021 04/15/2021 acetaminophen (TYLENOL) tablet 975 mg 975 mg, Oral, 3 TIMES DAILY, First dose (after last modification) on 03/21/21 at 1400, Maximum dose of acetaminophen is 4000 mg from all sources in 24 hours. 0757 (Given - Provider: Emilie Manzano RN)1347 (Given - Provider: Emilie Manzano RN)1954 (Given - Provider: Kristi Lai RN) 0937 (Given - Provider: Emilie Manzano RN)1327 (Given - Provider: Emilie Manzano RN)2040 (Given - Provider: Kristi Lai RN) 0911 (Given - Provider: Nayely Vuong RN)1400 (Due)2100 (Due) apixaban (ELIQUIS) tablet 5 mg 5 mg, Oral, 2 TIMES DAILY, First dose on Sun04/08/21 at 1115, ANTICOAGULANT 0758 (Given - Provider: Emilie Manzano RN)1953 (Given - Provider: Kristi Lai RN) 0937 (Given - Provider: Emilie Manzano RN)2039 (Given - Provider: Kristi Lai RN) 09 (Given - Provider: Nayely Vuong RN)2099 (Due) aspirin chewable tablet 81 mg 81 mg, Oral, DAILY, First dose (after last modification) on Sun03/22/21 at 0900 0757 (Given - Provider: Emilie Manzano RN) 0938 (Given - Provider: Emilie Manzano RN) 0911 (Given - Provider: Nayely Vuong RN) atorvastatin (LIPITOR) tablet 20 mg 20 mg, Oral, DAILY, First dose (after last modification) on Sun03/22/21 at 0900 0758 (Given - Provider: Emilie Manzano RN) 0938 (Given - Provider: Emilie Manzano RN) 0911 (Given - Provider: Nayely Vuong RN) baclofen (LIORESAL) tablet 5 mg 5 mg, Oral, 2 TIMES DAILY, First dose (after last modification) on Sun03/26/21 at 2100 0758 (Given - Provider: Emilie Manzano RN)1953 (Given - Provider: Kristi Lai RN) 0937 (Given - Provider: Emilie Manzano RN)2039 (Given - Provider: Kristi Lai RN) 0911 (Given - Provider: Nayely Vuong RN)2099 (Due) calcium-cholecalciferol 500-200 MG-UNIT per tablet 1 tablet 1 tablet, Oral, DAILY, First dose (after last modification) on Sun03/22/21 at 0900 0758 (Given - Provider: Emilie Manzano RN) 0938 (Given - Provider: Emilie Manzano RN) 0911 (Given - Provider: Nayely Vuong RN) collagenase ointment Topical, EVERY MWF, First dose (after last modification) on Sun04/08/21 at 0900, Apply to *Right plantar foot with wound VAC dressing changes 1350 (Given by Other - Provider: Emilie Manzano RN - Comment: Given by wound care) 1400 (Due - Provider: Nayely Vuong RN) donepezil (ARICEPT) tablet 5 mg 5 mg, Oral, NIGHTLY, First dose (after last modification) on Sun03/21/21 at 2100 1955 (Given - Provider: Kristi Lai RN) 2038 (Given - Provider: Kristi Lai RN) 2099 (Due) gabapentin (NEURONTIN) capsule 100 mg 100 mg, Oral, 2 TIMES DAILY, First dose on Sun03/18/21 at 1245 0757 (Given - Provider: Emilie Manzano RN)1953 (Given - Provider: Kristi Lai RN) 0938 (Given - Provider: Emilie Manzano RN)2038 (Given - Provider: Kristi Lai RN) 09 (Given - Provider: Nayely Vuong RN)2099 (Due) insulin glargine (LANTUS) injection vial 28 Units 28 Units, SubCUTAneous, NIGHTLY, First dose (after last modification) on Sun04/12/21 at 2100 2000 (Given - Provider: Kristi Lai RN) 2040 (Given - Provider: Kristi Lai RN) 2099 (Due) insulin lispro (HUMALOG) injection vial 0-6 Units 0-6 Units, SubCUTAneous, 3 TIMES DAILY WITH MEALS, First dose on Sun03/16/21 at 1700, Corrective Low Dose Algorithm Glucose: Dose: 70-139 No Insulin 140-199 1 Unit 200-249 2 Units 250-299 3 Units 300-349 4 Units 350-399 5 Units Over 399 6 Units 0804 (Given - Provider: Emilie Manzano RN)1351 (Given - Provider: Emilie Manzano RN)1728 (Given - Provider: Emilie Manzano RN) 0845 (Given - Provider: Emilie Manzano, MATHEUS)1327 (Given - Provider: Emilie Manzano, MATHEUS)1702 (Given - Provider: Emilie Manzano RN) 0912 (Given - Provider: Nayely Vuong, MATHEUS)1305 (Given - Provider: Nayely Vuong RN)1700 (Due) insulin lispro (HUMALOG) injection vial 8 Units 8 Units, SubCUTAneous, 3 TIMES DAILY WITH MEALS, First dose (after last modification) on Sun04/11/21 at 1200 0805 (Given - Provider: Emilie Manzano, RN)1351 (Given - Provider: Emilie Manzano, RN)1728 (Given - Provider: Emilie Manzano, RN) 0910 (Given - Provider: Emilie Manzano RN)1326 (Given - Provider: Emilie Manzano, RN)1702 (Given - Provider: Emilie Manzano RN) 0912 (Given - Provider: Nayely Vuong, MATHEUS)1305 (Given - Provider: Nayely Vuong, MATHEUS)1700 (Due) melatonin tablet 3 mg 3 mg, Oral, NIGHTLY, First dose on Sun03/22/21 at 2100 195 (Given - Provider: Kristi Lai RN) 2038 (Given - Provider: Kristi Lai RN) 2099 (Due) miconazole (MICOTIN) 2 % powder Topical, 2 TIMES DAILY, First dose on Sun03/11/21 at 0930, Apply to left thigh. 0759 (Given - Provider: Emilie Manzano RN)1952 (Given - Provider: Kristi Lai RN) 0940 (Given - Provider: Emilie Manzano RN)2037 (Given - Provider: Kristi Lai RN) 0911 (Given - Provider: Nayely Vuong, MATHEUS)2099 (Due) mineral oil-hydrophilic petrolatum (AQUAPHOR) ointment Topical, 2 TIMES DAILY, First dose on Sun03/16/21 at 2100, Apply to BLE. 0800 (Given - Provider: Emilie Manzano RN)1952 (Given - Provider: Kristi Lai RN) 0932 (Not Given - Provider: Emilie Manzano RN - Reason: Patient/family refused)2037 (Given - Provider: Kristi Lai RN) 1007 (Not Given - Provider: Nayely Vuong RN - Reason: Patient/family refused)2099 (Due) pantoprazole (PROTONIX) tablet 40 mg 40 mg, Oral, DAILY BEFORE BREAKFAST, First dose on Sun03/22/21 at 0700, Do not crush or break. 0615 (Given - Provider: Vanessa Stewart RN) 0551 (Given - Provider: Kristi Lai RN) 0549 (Not Given - Provider: Paige Barksdale RN - Reason: Patient/family refused) sennosides-docusate sodium (SENOKOT-S) 8.6-50 MG tablet 2 tablet 2 tablet, Oral, DAILY, First dose on Sun04/06/21 at 1700 0758 (Given - Provider: Emilie Manzano RN) 0938 (Given - Provider: Emilie Manzano RN) 0911 (Given - Provider: Nayely Vuong, RN) sodium chloride flush 0.9 % injection 5-40 mL (CANCELED) 5-40 mL, IntraVENous, EVERY 12 HOURS SCHEDULED (2 times per day), First dose on Sun03/08/21 at 2130, For Line Patency: Peripheral IV = 5 mL; Midline or Central Line = 10 mL/lumen. If following IV push medication, administer flush at same rate as the IV push. Flush volume is determined by type of infusion therapy being given. For non-viscous solutions use: Peripheral IV = 5 mL Midline or Central Line = 10 mL/lumen For viscous solutions (i.e. blood components, parenteral nutrition, contrast media, or after obtaining blood sample) use: Peripheral IV = 10 mL Midline or Central Line = 20 mL/lumen 0801 (Given - Provider: Emilie Manzano RN)1954 (Not Given - Provider: Kristi Lai RN - Reason: Loss of IV access) 0932 (Not Given - Provider: Emilie Manzano RN - Reason: Loss of IV access)2036 (Not Given - Provider: Kristi Lai RN - Reason: Loss of IV access) stomahesive in petrolatum (ET MIX) Topical, 2 TIMES DAILY, First dose on Sun03/09/21 at 1400 0233 (Given - Provider: Vanessa Stewart RN)0800 (Given - Provider: Emilie Manzano RN)1953 (Given - Provider: Kristi Lai, RN) 0940 (Given - Provider: Emilie Manzano, RN)2037 (Given - Provider: Kristi Lai RN) 0911 (Given - Provider: Nayely Vuong, MATHEUS)2100 (Due) PRN Medication Order 04/13/2021 04/14/2021 04/15/2021 0.9 % sodium chloride infusion 25 mL, IntraVENous, at 100 mL/hr, PRN, If patient receiving piggyback infusions without ordered maintenance IV fluids or with frequent/long duration piggyback infusions, Starting on Sun03/08/21 at 2119, Administer at the same rate as the piggyback being infused. dextrose 5 % solution 100 mL/hr, IntraVENous, PRN, Low blood sugar, Starting on Sun03/08/21 at 2035, Start infusion following administration of dextrose 50% or glucagon. dextrose 5 % solution 100 mL/hr, IntraVENous, PRN, Low blood sugar, Starting on 04/09/21 at 0806, Start infusion following administration of dextrose 50% or glucagon. dextrose 50 % IV solution 12.5 g, IntraVENous, PRN, Low blood sugar, Blood glucose less than 70 mg/dL and patient NOT ALERT or NPO., Starting on Sun03/08/21 at 2035, If patient does not respond within 5 minutes, repeat dose x1. Start D5W at 100 mL/hour until ordering provider can be reached. Repeat blood glucose in 15 minutes. If blood glucose is less than 70 mg/dL, repeat treatment and recheck blood glucose in 15 minutes x2. If using Glucostabilizer, dose as instructed per system. dextrose 50 % IV solution 12.5 g, IntraVENous, PRN, Low blood sugar, Blood glucose less than 70 mg/dL and patient NOT ALERT or NPO., Starting on 04/09/21 at 0806, If patient does not respond within 5 minutes, repeat dose x1. Start D5W at 100 mL/hour until ordering provider can be reached. Repeat blood glucose in 15 minutes. If blood glucose is less than 70 mg/dL, repeat treatment and recheck blood glucose in 15 minutes x2. If using Glucostabilizer, dose as instructed per system. glucagon (rDNA) injection 1 mg 1 mg, IntraMUSCular, PRN, Low blood sugar, Blood glucose less than 70 mg/dL and patient NOT ALERT or NPO and does not have IV access., Starting on Sun03/08/21 at 2035, After administration, attempt intravenous access and start D5W at 100 mL/hr. Repeat blood glucose in 15 minutes x2 and notify provider. glucagon (rDNA) injection 1 mg 1 mg, IntraMUSCular, PRN, Low blood sugar, Blood glucose less than 70 mg/dL and patient NOT ALERT or NPO and does not have IV access., Starting on 04/09/21 at 0806, After administration, attempt intravenous access and start D5W at 100 mL/hr. Repeat blood glucose in 15 minutes x2 and notify provider. glucose (GLUTOSE) 40 % oral gel 15 g 15 g, Oral, PRN, Low blood sugar, Starting on Sun03/08/21 at 2036, If blood glucose less than 50 mg/dL and patient ALERT and TOLERATING PO, give 2 tubes glucose gel. If blood glucose less than 70 mg/dL and patient ALERT and TOLERATING PO, give 1 tube glucose gel. Repeat blood glucose in 15 minutes. If blood glucose is less than 70 mg/dL, repeat treatment and recheck blood glucose in 15 minutes x2 and notify provider. glucose (GLUTOSE) 40 % oral gel 15 g 15 g, Oral, PRN, Low blood sugar, Starting on 04/09/21 at 0806, If blood glucose less than 50 mg/dL and patient ALERT and TOLERATING PO, give 2 tubes glucose gel. If blood glucose less than 70 mg/dL and patient ALERT and TOLERATING PO, give 1 tube glucose gel. Repeat blood glucose in 15 minutes. If blood glucose is less than 70 mg/dL, repeat treatment and recheck blood glucose in 15 minutes x2 and notify provider. heparin (porcine) injection 2,100 Units 2,100 Units, IntraCATHeter, PRN, Line Care, Dialysis, Starting on [place] 03/27/21 at 1746 heparin (porcine) injection 2,200 Units 2,200 Units, IntraCATHeter, PRN, Line Care, Dialysis, Starting on [place] 03/27/21 at 1746 heparin flush 100 UNIT/ML injection 250 Units 250 Units, IntraCATHeter, PRN, Line Care, after blood draws and after infusion, Starting on [place] 03/13/21 at 1527, Do NOT administer to lumens with continuous fluids currently infusing. Line Care. Use 10 mL or larger syringe. hydrALAZINE (APRESOLINE) injection 10 mg 10 mg, IntraVENous, EVERY 6 HOURS PRN, High Blood Pressure, SBP>160, Starting on 04/09/21 at 1436, HOLD for HR>100 ipratropium-albuterol (DUONEB) nebulizer solution 1 ampule 1 ampule, Inhalation, EVERY 4 HOURS PRN, Shortness of Breath, Starting on Sun03/13/21 at 1411 ondansetron (ZOFRAN) injection 4 mg(Linked Group 1) 4 mg, IntraVENous, EVERY 6 HOURS PRN, Nausea, Vomiting, Starting on Sun03/08/21 at 2119, Administer if oral route cannot be used. ondansetron (ZOFRAN-ODT) disintegrating tablet 4 mg(Linked Group 1) 4 mg, Oral, EVERY 8 HOURS PRN, Nausea, Vomiting, Starting on Sun03/08/21 at 2119 oxyCODONE (ROXICODONE) immediate release tablet 5 mg 5 mg, Oral, EVERY 6 HOURS PRN, Pain Moderate (4-6), Pain Severe (7-10), Starting on Sun04/04/21 at 1315 1347 (Given - Provider: Emilie Manzano, MATHEUS) 2039 (Given - Provider: Kristi Lai, MATHEUS) 1420 (Given - Provider: Letitia Ernandez RN) polyethylene glycol (GLYCOLAX) packet 17 g 17 g, Per G Tube, DAILY PRN, Constipation, Starting on Sun03/15/21 at 2317, First line therapy for constipation stomahesive in petrolatum (ET MIX) Topical, PRN, Dry Skin, Starting on Sun03/09/21 at 1333 Linked Groups Order Group 1: ondansetron (ZOFRAN-ODT) disintegrating tablet 4 mgJump to med 4 mg, Oral, EVERY 8 HOURS PRN, Nausea, Vomiting, Starting on Sun03/08/21 at 2119 Or ondansetron (ZOFRAN) injection 4 mgJump to med 4 mg, IntraVENous, EVERY 6 HOURS PRN, Nausea, Vomiting, Starting on Sun03/08/21 at 2119
Administer if oral route cannot be used.
Scheduled Medication Order 08/05/2022 08/06/2022 08/07/2022 ammonium lactate (Lac-Hydrin) 12 % lotion Topical, Daily, First dose on Sun08/04/22 at 0600, 1. Left lynos: Venous stasis dermatitis - Clean with Hibiclens then Apply Lac-Hydrin. 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 Apply daily and PRN. 2. Right lyons: Venous stasis dermatitis - Clean with Hibiclens then Apply Lac-Hydrin. Leave LINDSEY. Apply daily and PRN. 0600 (Not Given - Provider: Carlos Wright RN - Reason: Other - Comment: pt sleeping) 0600 (Not Given - Provider: Hortensia Garcia RN - Reason: Patient/family refused) 0620 (Given - Provider: Dayana Jalloh, MATHEUS) apixaban (Eliquis) tablet 5 mg 5 mg, Oral, 2 times daily, First dose on Sun08/02/22 at 2099, Anticoagulant 09 (Given - Provider: Alecia Gabriel RN)2017 (Given - Provider: Hortensia Garcia RN) 09 (Given - Provider: Charo Milner RN)2147 (Given - Provider: Dayana Jalloh RN) 844 (Given - Provider: Charo Milner RN) atorvastatin (Lipitor) tablet 20 mg 20 mg, Oral, Nightly, First dose on Sun08/02/22 at 2099 2017 (Given - Provider: Hortensia Garcia RN) 2147 (Given - Provider: Dayana Jalloh RN) baclofen (Lioresal) tablet 5 mg 5 mg, Oral, Daily, First dose on Sun08/02/22 at 2014 1250 (Given - Provider: Alecia Gabriel RN) 0941 (Given - Provider: Charo Milner RN) 0845 (Given - Provider: Charo Milner RN) Calcium Carb-Cholecalciferol 500-5 MG-MCG per tablet 1 tablet 1 tablet, Oral, Daily, First dose on Sun08/02/22 at 2014 950 (Given - Provider: Alecia Gabrile RN) 0942 (Given - Provider: Charo Milner RN) 0845 (Given - Provider: Charo Milner RN) donepezil (Aricept) tablet 10 mg 10 mg, Oral, Nightly, First dose on Sun08/02/22 at 2099 2017 (Given - Provider: Hortensia Garcia RN) 2147 (Given - Provider: Dayana Jalloh RN) ertapenem (INVanz) 1,000 mg in sodium chloride 0.9 % 50 mL IVPB Mini-Bag Plus (CANCELED) 1,000 mg, IntraVENous, at 100 mL/hr, Administer over 30 Minutes, Every 24 hours, First dose on Sun08/04/22 at 1745, For 6 days, Mini-Bag Plus bag, Suspected Indication (Select all that apply): Urinary Tract Infection 1723 (Given - Provider: Alecia Gabriel RN) ferrous sulfate tablet 325 mg 325 mg, Oral, Daily with breakfast, First dose on Sun08/03/22 at 0800 0950 (Given - Provider: Alecia Gabriel RN) 0941 (Given - Provider: Charo Milner RN) 0845 (Given - Provider: Charo Milner RN) furosemide (Lasix) tablet 40 mg (CANCELED) 40 mg, Oral, 2 times daily, First dose on Sun08/02/22 at 2100 0950 (Given - Provider: Alecia Gabriel RN)2018 (Given - Provider: Hortensia Garcia RN) 0942 (Given - Provider: Charo Milner RN)1418 (Held by provider - Provider: Juan Becker DO - Reason: Other)2100 (Dose Auto Held - Provider: Juan Becker DO) 0900 (Dose Auto Held - Provider: Juan Becker DO)1224 (Unheld by provider - Provider: Juan Becker DO) furosemide (Lasix) tablet 40 mg 40 mg, Oral, Daily, First dose (after last modification) on Sun08/07/22 at 1230 1314 (Given - Provider: Charo Milner RN) insulin glargine (Lantus) injection 10 Units 10 Units, SubCUTAneous, Nightly, First dose (after last modification) on Sun08/05/22 at 2100 2019 (Given - Provider: Hortensia Garcia RN) 2148 (Given - Provider: Dayana Jalloh RN - Comment: bg 164) Insulin Lispro (Humalog) injection 0-12 Units 0-12 Units, SubCUTAneous, 3 times daily with meals, First dose on Sun08/03/22 at 0800, Medium Dose Correction Algorithm Glucose: Dose: LESS than 139 No Insulin 140-199 2 Unit 200-249 4 Units 250-299 6 Units 300-349 8 Units 350-400 10 Units Above 400 12 Units 0952 (Given - Provider: Alecia Gabriel RN)1223 (Given - Provider: Alecia Gabriel RN)1724 (Given - Provider: Alecia Gabriel RN) 0951 (Given - Provider: Charo Milner RN)1227 (Given - Provider: Charo Milner RN)1727 (Given - Provider: Charo Milner RN) 0855 (Given - Provider: Charo Milner RN)1314 (Given - Provider: Charo Milner RN)1700 (Canceled Entry - Provider: Automatic Discharge Provider - Comment: Automatically canceled at discontinue of medication order) Insulin Lispro (Humalog) injection 3 Units 3 Units, SubCUTAneous, 3 times daily with meals, First dose on Sun08/04/22 at 1715 0951 (Given - Provider: Alecia Gabriel RN)1223 (Given - Provider: Alecia Gabriel RN)1723 (Given - Provider: Alecia Gabriel RN) 0951 (Given - Provider: Charo Milner RN)1227 (Given - Provider: Charo Milner RN)1727 (Given - Provider: Charo Milner RN) 0856 (Given - Provider: Charo Milner RN)1314 (Given - Provider: Charo Milner RN)1700 (Canceled Entry - Provider: Automatic Discharge Provider - Comment: Automatically canceled at discontinue of medication order) lisinopril tablet 10 mg 10 mg, Oral, Daily, First dose on Sun08/02/22 at 2014 0950 (Given - Provider: Alecia Gabriel RN) 0941 (Given - Provider: Charo Milner RN) 0844 (Given - Provider: Charo Milner RN) melatonin tablet 3 mg 3 mg, Oral, Nightly, First dose on Sun08/02/22 at 2100 2017 (Given - Provider: Hortensia Garcia RN) 214 (Given - Provider: Dayana Jalloh RN) phenazopyridine (Pyridium) tablet 200 mg 200 mg, Oral, 3 times daily with meals, First dose on Sun08/06/22 at 1200, For 9 doses 1117 (Given - Provider: Charo Milner RN)1729 (Given - Provider: Charo Milner RN) 0800 (Not Given - Provider: Charo Milner RN - Reason: Medication not available)1313 (Given - Provider: Charo Milner RN)1700 (Canceled Entry - Provider: Automatic Discharge Provider - Comment: Automatically canceled at discontinue of medication order) senna-docusate sodium (Senokot-S) 8.6-50 MG tablet 1 tablet 1 tablet, Oral, Nightly, First dose on Sun08/02/22 at 2100 2017 (Given - Provider: Hortensia Garcia RN) 214 (Given - Provider: Dayana Jalloh RN) sertraline (Zoloft) tablet 50 mg 50 mg, Oral, Daily, First dose on Sun08/02/22 at 2014 0951 (Given - Provider: Alecia Gabriel RN) 0942 (Given - Provider: Charo Milner RN) 0845 (Given - Provider: Charo Milner RN) sodium chloride 0.9% (NS) flush 5-40 mL 5-40 mL, IntraVENous, Every 12 hours, First dose on Sun08/02/22 at 2014, For Line Patency: Peripheral IV = 5 mL; Midline or Central Line = 10 mL/lumen. If following IV push medication, administer flush at same rate as the IV push. Flush volume is determined by type of infusion therapy being given. For non-viscous solutions use: Peripheral IV = 5 mL Midline or Central Line = 10 mL/lumen For viscous solutions (i.e. blood components, parenteral nutrition, contrast media, or after obtaining blood sample) use: Peripheral IV = 10 mL Midline or Central Line = 20 mL/lumen 0953 (Given - Provider: Alecia Gabriel RN)2026 (Given - Provider: Hortensia Garcia RN) 0952 (Given - Provider: Charo Milner RN)2205 (Given - Provider: Dayana Jalloh RN) 0846 (Given - Provider: Charo Milner RN) PRN Medication Order 08/05/2022 08/06/2022 08/07/2022 acetaminophen (Tylenol) suppository 650 mg(Linked Group 1) 650 mg, Rectal, Every 6 hours PRN, mild pain (1-3), fever, For temp greater than 100.4 F (38 C), Starting on Sun08/02/22 at 2008, Administer if oral route cannot be used. Maximum dose of acetaminophen is 4000 mg from all sources in 24 hours. acetaminophen (Tylenol) tablet 650 mg(Linked Group 1) 650 mg, Oral, Every 6 hours PRN, mild pain (1-3), fever, For temp greater than 100.4 F (38 C), Starting on Sun08/02/22 at 2008, Maximum dose of acetaminophen is 4000 mg from all sources in 24 hours. ammonium lactate (Lac-Hydrin) 12 % lotion Topical, PRN, dry skin, Starting on Sun08/04/22 at 1424, 1. Left lyons: Venous stasis dermatitis - Clean with Hibiclens then Apply Lac-Hydrin. 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 Apply daily and PRN. 2. Right lyons: Venous stasis dermatitis - Clean with Hibiclens then Apply Lac-Hydrin. Leave LINDSEY. Apply daily and PRN. dextrose 5 % infusion 100 mL/hr, IntraVENous, PRN, Blood sugar less than 70mg/dL, Starting on Sun08/02/22 at 2008, Start infusion following administration of dextrose 50% or glucagon. dextrose 50 % solution 12.5 g 12.5 g, IntraVENous, PRN, low blood sugar, Blood glucose less than 70 mg/dL and patient NOT ALERT or NPO., Starting on Sun08/02/22 at 2008, If patient does not respond within 5 minutes, repeat dose x1. Start D5W at 100 mL/hour until ordering provider can be reached. Repeat blood glucose in 15 minutes. If blood glucose is less than 70 mg/dL, repeat treatment and recheck blood glucose in 15 minutes x2. If using Glucostabilizer, dose as instructed per system. glucagon (human recombinant) injection 1 mg 1 mg, IntraMUSCular, PRN, low blood sugar, Blood glucose less than 70 mg/dL and patient NOT ALERT or NPO and does not have IV access., Starting on Sun08/02/22 at 2008, After administration, attempt intravenous access and start D5W at 100 mL/hr. Repeat blood glucose in 15 minutes x2 and notify provider. glucose oral gel 15 g 15 g, Oral, As needed, low blood sugar, Starting on Sun08/02/22 at 2008, If blood glucose less than 50 mg/dL and patient ALERT and NOT NPO, give 2 tubes glucose gel. If blood glucose less than 70 mg/dL and patient ALERT and NOT NPO, give 1 tube glucose gel. Repeat blood glucose in 15 minutes. If blood glucose is less than 70 mg/dL, repeat treatment and recheck blood glucose in 15 minutes x2 and notify provider. hyoscyamine (Levsin) injection 0.25 mg 0.25 mg, IntraVENous, Every 4 hours PRN, bladder spasms, Starting on Sun08/06/22 at 1012 1116 (Given - Provider: Charo Milner, MATHEUS) ondansetron (Zofran) injection 4 mg(Linked Group 2) 4 mg, IntraVENous, Every 6 hours PRN, nausea, vomiting, Starting on Sun08/02/22 at 2008, 1st Line. Give IV if patient is unable to take orally. If inadequate response within 60 minutes, proceed to next-line agent or contact provider if no further options ordered. ondansetron ODT (Zofran-ODT) disintegrating tablet 4 mg(Linked Group 2) 4 mg, Oral, Every 8 hours PRN, nausea, vomiting, Starting on Sun08/02/22 at 2008, 1st Line. If inadequate response within 60 minutes, proceed to next-line agent or contact provider if no further options ordered. Patient should allow tablet to dissolve on tongue. Do not remove from blister pack until just before administering. oxyCODONE (Roxicodone) immediate release tablet 5 mg 5 mg, Oral, Every 6 hours PRN, severe pain (7-10), Starting on Celeste 08/03/22 at 0316 2023 (Given - Provider: Hortensia Garcia RN) 0226 (Given - Provider: Hortensia Garcia RN)0950 (Given - Provider: Charo Milner RN)2200 (Given - Provider: Dayana Jalloh RN - Comment: right leg) polyethylene glycol (PEG) 3350 (Miralax) packet 17 g 17 g, Oral, Daily PRN, constipation, Starting on Sun08/02/22 at 2008, 1st line for treatment of constipation - give scheduled if no bowel movement in past 24 hours. sodium chloride 0.9 % infusion 5-250 mL/hr, IntraVENous, PRN, if patient receiving piggyback infusions and maintenance fluids are not ordered OR KVO fluids to protect IV site / prevent frequent line interruptions / long duration, Starting on Sun08/02/22 at 2008, For piggyback infusion, administer at same rate as piggyback for a total of 25 mL. Enter 25 mL into dose field and piggyback rate into rate field of order. If piggyback is infusing at a rate less than 100 mL/hr, enter 25 mL into dose field and 100 mL/hr into rate field of order. For KVO fluids, enter rate of 20 mL/hr or less into rate field of order. sodium chloride 0.9% (NS) flush 5-40 mL 5-40 mL, IntraVENous, PRN, line care, After every IV line use, Starting on Sun08/02/22 at 2008, For Line Patency: Peripheral IV = 5 mL; Midline or Central Line = 10 mL/lumen. If following IV push medication, administer flush at same rate as the IV push. Flush volume is determined by type of infusion therapy being given. For non-viscous solutions use: Peripheral IV = 5 mL Midline or Central Line = 10 mL/lumen For viscous solutions (i.e. blood components, parenteral nutrition, contrast media, or after obtaining blood sample) use: Peripheral IV = 10 mL Midline or Central Line = 20 mL/lumen Linked Groups Order Group 1: acetaminophen (Tylenol) tablet 650 mgJump to med 650 mg, Oral, Every 6 hours PRN, mild pain (1-3), fever, For temp greater than 100.4 F (38 C), Starting on Sun08/02/22 at 2008
Maximum dose of acetaminophen is 4000 mg from all sources in 24 hours.
Or acetaminophen (Tylenol) suppository 650 mgJump to med 650 mg, Rectal, Every 6 hours PRN, mild pain (1-3), fever, For temp greater than 100.4 F (38 C), Starting on Sun08/02/22 at 2008
Administer if oral route cannot be used. Maximum dose of acetaminophen is 4000 mg from all sources in 24 hours.
Group 2: ondansetron ODT (Zofran-ODT) disintegrating tablet 4 mgJump to med 4 mg, Oral, Every 8 hours PRN, nausea, vomiting, Starting on Sun08/02/22 at 2008
1st Line. If inadequate response within 60 minutes, proceed to next-line agent or contact provider if no further options ordered. Patient should allow tablet to dissolve on tongue. Do not remove from blister pack until just before administering.
Or ondansetron (Zofran) injection 4 mgJump to med 4 mg, IntraVENous, Every 6 hours PRN, nausea, vomiting, Starting on Sun08/02/22 at 2008
1st Line. Give IV if patient is unable to take orally. If inadequate response within 60 minutes, proceed to next-line agent or contact provider if no further options ordered.
Scheduled Medication Order 01/09/2023 01/10/2023 01/11/2023 ammonium lactate (Lac-Hydrin) 12 % lotion Topical, Daily, First dose on Sun01/10/23 at 1400, Apply gently to both legs and feet daily 1400 (Not Given - Provider: Mimi Shah RN - Reason: Patient/family refused) 0910 (Given - Provider: Alivia Delgado, MATHEUS) apixaban (Eliquis) tablet 5 mg 5 mg, Oral, 2 times daily, First dose on Sun01/08/23 at 1305, Anticoagulant 0846 (Given - Provider: Mimi Shah RN)2141 (Given - Provider: Jesus Manuel Grande RN) 0916 (Given - Provider: Mimi Shah RN)213 (Given - Provider: Cathy Esteves RN) 0908 (Given - Provider: Alivia Delgado, MATHEUS) ascorbic acid (Vitamin C) tablet 250 mg 250 mg, Oral, Daily, First dose on Sun01/08/23 at 1305 0846 (Given - Provider: Mimi Shah RN) 0916 (Given - Provider: Mimi Shah RN) 0908 (Given - Provider: Alivia Delgado, MATHEUS) atorvastatin (Lipitor) tablet 20 mg 20 mg, Oral, Daily, First dose on Sun01/08/23 at 1305 0846 (Given - Provider: Mmii Shah RN) 0916 (Given - Provider: Mimi Shah RN) 0908 (Given - Provider: Alivia Delgado, MATHEUS) Calcium Carb-Cholecalciferol 500-5 MG-MCG per tablet 1 tablet 1 tablet, Oral, Daily, First dose on Sun01/08/23 at 1305 0846 (Given - Provider: Mimi Shah RN) 0916 (Given - Provider: Mimi Shah RN) 09 (Given - Provider: Alivia Delgado, MATHEUS) Diclofenac Sodium (Voltaren) 1 % gel 4 g 4 g, Topical, 2 times daily, First dose on Sun01/08/23 at 1440, Apply to affected area 0900 (Not Given - Provider: Mimi Shah RN - Reason: Patient/family refused)2139 (Given - Provider: Jesus Manuel Grande RN) 0900 (Not Given - Provider: Mimi Shah RN - Reason: Patient/family refused)2133 (Given - Provider: Cathy Esteves RN) 09 (Given - Provider: Alivia Delgado, MATHEUS) donepezil (Aricept) tablet 10 mg 10 mg, Oral, Nightly, First dose on Sun01/08/23 at 2100 2141 (Given - Provider: Jesus Manuel Grande RN) 2129 (Given - Provider: Cathy Esteves RN) famotidine (Pepcid) tablet 20 mg 20 mg, Oral, Daily, First dose on Sun01/08/23 at 1305 0846 (Given - Provider: Mimi Shah RN) 0917 (Given - Provider: Mimi Shah RN) 0908 (Given - Provider: Alivia Delgado, MATHEUS) ferrous sulfate tablet 325 mg 325 mg, Oral, Daily with breakfast, First dose on Sun01/09/23 at 0800 0846 (Given - Provider: Mimi Shah RN) 0917 (Given - Provider: Mimi Shah RN) 0908 (Given - Provider: Alivia Delgado RN) furosemide (Lasix) tablet 40 mg 40 mg, Oral, Daily, First dose on Sun01/08/23 at 1305 0846 (Given - Provider: Mimi Shah RN) 0916 (Given - Provider: Mimi Shah RN) 0908 (Given - Provider: Alivia Delgado, MATHEUS) gabapentin (Neurontin) capsule 200 mg 200 mg, Oral, 3 times daily, First dose on Sun01/09/23 at 1400 1424 (Given - Provider: Mimi Shah RN)2142 (Given - Provider: Jesus Manuel Grande RN) 0917 (Given - Provider: Mimi Shah RN)1449 (Given - Provider: Mimi Shah RN)2130 (Given - Provider: Cathy Esteves RN) 0908 (Given - Provider: Alivia Delgado, MATHEUS)1306 (Given - Provider: Alivia Delgado, MATHEUS) Influenza Vac A&B SA Adj quadrivalent (Fluad) vaccine 0.5 mL 0.5 mL, IntraMUSCular, Once, On Sun01/09/23 at 0900, For 1 dose insulin glargine (Lantus) injection 10 Units 10 Units, SubCUTAneous, Nightly, First dose on Sun01/08/23 at 2100 2141 (Given - Provider: Jesus Manuel Grande RN) 213 (Given - Provider: Cathy Esteves, MATHEUS) Insulin Lispro (Humalog) injection 0-6 Units 0-6 Units, SubCUTAneous, 3 times daily with meals, First dose on Sun01/08/23 at 1305, Low Dose Correction Algorithm Glucose: Dose: LESS than 139 No Insulin 140-199 1 Unit 200-249 2 Units 250-299 3 Units 300-349 4 Units 350-400 5 Units Above 400 6 Units 0847 (Given - Provider: Mimi Shah RN)1200 (Not Given - Provider: Mimi Shah RN - Reason: Patient/family refused - Comment: Pt refused BS check)1700 (Not Given - Provider: Mimi Shah RN - Reason: Patient/family refused - Comment: Pt refusing BS to be checked) 0918 (Given - Provider: Mimi Shah RN)1145 (Given - Provider: Mimi Shah RN)1725 (Given - Provider: Mimi Shah RN) 0909 (Given - Provider: Alivia Delgado RN)1254 (Given - Provider: Alivia Delgado RN)1700 (Canceled Entry - Provider: Automatic Discharge Provider - Comment: Automatically canceled at discontinue of medication order) Insulin Lispro (Humalog) injection 3 Units 3 Units, SubCUTAneous, 3 times daily with meals, First dose on Sun01/08/23 at 1305 0848 (Given - Provider: Mimi Shah RN)1200 (Not Given - Provider: Mimi Shah RN - Reason: Patient/family refused - Comment: Pt refused BS check)1700 (Not Given - Provider: Mimi Shah RN - Reason: Patient/family refused - Comment: pt refusing BS to be checked) 0919 (Given - Provider: Mimi Shah RN)1145 (Given - Provider: Mimi Shah RN)1725 (Given - Provider: Mimi Shah RN) 0908 (Given - Provider: Alivia Delgado RN)1253 (Given - Provider: Alivia Delgado RN)1700 (Canceled Entry - Provider: Automatic Discharge Provider - Comment: Automatically canceled at discontinue of medication order) lisinopril tablet 10 mg 10 mg, Oral, Daily, First dose on Sun01/08/23 at 1305, On hold since Sun01/08/2023 at 1300 until manually unheld 0900 (Dose Auto Held) 0900 (Dose Auto Held) 0900 (Dose Auto Held)2046 (Unheld by provider - Provider: Automatic Discharge Provider) meropenem (Merrem) IVPB 2000 mg in 100 mL NS (compounded premix) (CANCELED) 2,000 mg, IntraVENous, at 33.3 mL/hr, Administer over 3 Hours, Every 8 hours, First dose on Sun01/08/23 at 1630, premix bag, Suspected Indication (Select all that apply): Urinary Tract Infection 0400 (Due - Provider: Giovani Arreola [facility])1000 (New Bag - Provider: Mimi Shah RN)1300 (Stopped - Provider: Mimi Shah RN) miconazole (Micotin) 2 % powder Topical, 2 times daily, First dose on Sun01/08/23 at 1310 1009 (Given - Provider: Mimi Shah RN)2100 (Not Given - Provider: Jesus Manuel Grande RN - Reason: Patient/family refused) 0900 (Given - Provider: Mimi Shah RN)2135 (Given - Provider: Cathy Esteves RN) 0910 (Given - Provider: Alivia Delgado, MATHEUS) senna-docusate sodium (Senokot-S) 8.6-50 MG tablet 1 tablet 1 tablet, Oral, Every 24 hours, First dose on Sun01/08/23 at 1305 2100 (Canceled Entry - Provider: Jesus Manuel Grande RN) 1145 (Given - Provider: Mimi Shah RN) 1305 (Not Given - Provider: Alivia Delgado RN - Reason: Patient/family refused) sertraline (Zoloft) tablet 50 mg 50 mg, Oral, Daily, First dose on Sun01/08/23 at 1305 0846 (Given - Provider: Mimi Shah RN) 0916 (Given - Provider: Mimi Shah RN) 0908 (Given - Provider: Alivia Delgado, MATHEUS) stomahesive in petrolatum (ET Mix) Topical, 3 times daily, First dose on Sun01/10/23 at 1400, TO SKIN FOLDS AND BUTTOCK THREE TIMES A DAILY. 1400 (Not Given - Provider: Mimi Shah RN - Reason: Patient/family refused)2130 (Given - Provider: Cathy Esteves RN) 0910 (Given - Provider: Alivia Delgado, MATHEUS)1306 (Given - Provider: Alivia Delgado RN) PRN Medication Order 01/09/2023 01/10/2023 01/11/2023 acetaminophen (Tylenol) suppository 650 mg(Linked Group 1) 650 mg, Rectal, Every 6 hours PRN, mild pain (1-3), fever, For temp greater than 100.4 F (38 C), Starting on Sun01/08/23 at 1300, Administer if oral route cannot be used. Maximum dose of acetaminophen is 4000 mg from all sources in 24 hours. 214 (See Alternative - Provider: Jesus Manuel Grande RN) 0429 (See Alternative - Provider: Freda Avila, MATHEUS)1145 (See Alternative - Provider: Alivia Delgado, MATHEUS) acetaminophen (Tylenol) tablet 650 mg(Linked Group 1) 650 mg, Oral, Every 6 hours PRN, mild pain (1-3), fever, For temp greater than 100.4 F (38 C), Starting on Sun01/08/23 at 1300, Maximum dose of acetaminophen is 4000 mg from all sources in 24 hours. 214 (Given - Provider: Jesus Manuel Grande RN) 0429 (Given - Provider: Freda Avila, MATHEUS)1145 (Given - Provider: Alivia Delgado, MATHEUS) baclofen (Lioresal) tablet 5 mg 5 mg, Oral, 3 times daily PRN, muscle spasm, Starting on Sun01/08/23 at 2030 214 (Given - Provider: Jesus Manuel Grande RN) dextrose 5 % infusion 100 mL/hr, IntraVENous, PRN, Blood sugar less than 70mg/dL, Starting on Sun01/08/23 at 1300, Start infusion following administration of dextrose 50% or glucagon. dextrose 50 % solution 12.5 g 12.5 g, IntraVENous, PRN, low blood sugar, Blood glucose less than 70 mg/dL and patient NOT ALERT or NPO., Starting on Sun01/08/23 at 1300, If patient does not respond within 5 minutes, repeat dose x1. Start D5W at 100 mL/hour until ordering provider can be reached. Repeat blood glucose in 15 minutes. If blood glucose is less than 70 mg/dL, repeat treatment and recheck blood glucose in 15 minutes x2. If using Glucostabilizer, dose as instructed per system. glucagon (human recombinant) injection 1 mg 1 mg, IntraMUSCular, PRN, low blood sugar, Blood glucose less than 70 mg/dL and patient NOT ALERT or NPO and does not have IV access., Starting on Sun01/08/23 at 1300, After administration, attempt intravenous access and start D5W at 100 mL/hr. Repeat blood glucose in 15 minutes x2 and notify provider. glucose oral gel 15 g 15 g, Oral, As needed, low blood sugar, Starting on Sun01/08/23 at 1300, If blood glucose less than 50 mg/dL and patient ALERT and NOT NPO, give 2 tubes glucose gel. If blood glucose less than 70 mg/dL and patient ALERT and NOT NPO, give 1 tube glucose gel. Repeat blood glucose in 15 minutes. If blood glucose is less than 70 mg/dL, repeat treatment and recheck blood glucose in 15 minutes x2 and notify provider. ondansetron (Zofran) injection 4 mg(Linked Group 2) 4 mg, IntraVENous, Every 6 hours PRN, nausea, vomiting, Starting on Sun01/08/23 at 1300, 1st Line. Give IV if patient is unable to take orally. If inadequate response within 60 minutes, proceed to next-line agent or contact provider if no further options ordered. ondansetron ODT (Zofran-ODT) disintegrating tablet 4 mg(Linked Group 2) 4 mg, Oral, Every 8 hours PRN, nausea, vomiting, Starting on Sun01/08/23 at 1300, 1st Line. If inadequate response within 60 minutes, proceed to next-line agent or contact provider if no further options ordered. Patient should allow tablet to dissolve on tongue. Do not remove from blister pack until just before administering. oxyCODONE (Roxicodone) immediate release tablet 2.5 mg 2.5 mg, Oral, Every 6 hours PRN, severe pain (7-10), moderate pain (4-6), Starting on Sun01/08/23 at 1433 0017 (Given - Provider: Belgica Seth RN)0858 (Given - Provider: Mimi Shah, MATHEUS)2146 (Given - Provider: Jesus Manuel Grande RN) 0945 (Given - Provider: Mimi Shah, MATHEUS)2134 (Given - Provider: Cathy Esteves, MATHEUS) 0341 (Given - Provider: Freda Avila, MATHEUS)0913 (Given - Provider: Alivia Delgado, MATHEUS) polyethylene glycol (PEG) 3350 (Miralax) packet 17 g 17 g, Oral, Daily PRN, constipation, Starting on Sun01/08/23 at 1300, 1st line for treatment of constipation - give scheduled if no bowel movement in past 24 hours. Xeroform Petrolat Gauze 1"x8" pad 1 each 1 each, Topical, PRN, wound care, Starting on Sun01/10/23 at 1356, Apply to right lyons 0.5cm x0.5cm x0.1cm open area , then dry ABD pad secure with roll gauze. daily. Linked Groups Order Group 1: acetaminophen (Tylenol) tablet 650 mgJump to med 650 mg, Oral, Every 6 hours PRN, mild pain (1-3), fever, For temp greater than 100.4 F (38 C), Starting on Sun01/08/23 at 1300, Maximum dose of acetaminophen is 4000 mg from all sources in 24 hours. Or acetaminophen (Tylenol) suppository 650 mgJump to med 650 mg, Rectal, Every 6 hours PRN, mild pain (1-3), fever, For temp greater than 100.4 F (38 C), Starting on Sun01/08/23 at 1300, Administer if oral route cannot be used. Maximum dose of acetaminophen is 4000 mg from all sources in 24 hours. Group 2: ondansetron ODT (Zofran-ODT) disintegrating tablet 4 mgJump to med 4 mg, Oral, Every 8 hours PRN, nausea, vomiting, Starting on Sun01/08/23 at 1300, 1st Line. If inadequate response within 60 minutes, proceed to next-line agent or contact provider if no further options ordered. Patient should allow tablet to dissolve on tongue. Do not remove from blister pack until just before administering. Or ondansetron (Zofran) injection 4 mgJump to med 4 mg, IntraVENous, Every 6 hours PRN, nausea, vomiting, Starting on Sun01/08/23 at 1300, 1st Line. Give IV if patient is unable to take orally. If inadequate response within 60 minutes, proceed to next-line agent or contact provider if no further options ordered. Scheduled Medication Order 08/07/2023 08/08/2023 08/09/2023 ammonium lactate (Lac-Hydrin) 12 % lotion Topical, 2 times daily, First dose on Sun08/01/23 at 2100, Apply twice daily to both feet and legs apply to dry scaling skin 845 (Given - Provider: Ninoska Nicolas RN)2148 (Given - Provider: Yolanda Luna RN) 1100 (Given - Provider: Wendy Dunbar RN)2117 (Given - Provider: Yolanda Luna RN) 0846 (Given - Provider: Wai Spain RN) apixaban (Eliquis) tablet 5 mg 5 mg, Oral, 2 times daily, First dose on Sun07/31/23 at 0200, Anticoagulant 0806 (Unheld by provider - Provider: Reynold Garner MD)1001 (Given - Provider: Ninoska Nicolas RN)2133 (Given - Provider: Yolanda Luna RN) 0838 (Given - Provider: Wendy Dunbar RN)2117 (Given - Provider: Yolanda Luna RN) 0850 (Given - Provider: Wai Spain RN) ascorbic acid (Vitamin C) tablet 250 mg 250 mg, Oral, Daily, First dose on Sun07/31/23 at 0900, Recovery & On Unit, On hold since Sun08/06/2023 at 0029 until manually unheld 0900 (Dose Auto Held - Provider: ZINA Doan CNP) 0900 (Dose Auto Held - Provider: ZINA Doan CNP) 0900 (Dose Auto Held - Provider: ZINA Doan CNP)1918 (Unheld by provider - Provider: Automatic Discharge Provider) atorvastatin (Lipitor) tablet 20 mg 20 mg, Oral, Nightly, First dose on Sun07/31/23 at 2100 0806 (Unheld by provider - Provider: Reynold Garner MD)2134 (Given - Provider: Yolanda Luna RN) 2117 (Given - Provider: Yolanda Luna RN) baclofen (Lioresal) tablet 5 mg 5 mg, Oral, 3 times daily, First dose on Sun07/31/23 at 0900, Recovery & On Unit, On hold since Sun08/06/2023 at 0029 until manually unheld 0900 (Dose Auto Held - Provider: ZINA Doan CNP)1400 (Dose Auto Held - Provider: ZINA Doan CNP)2100 (Dose Auto Held - Provider: ZINA Doan CNP) 0900 (Dose Auto Held - Provider: ZINA Doan CNP)1400 (Dose Auto Held - Provider: ZINA Doan CNP)2100 (Dose Auto Held - Provider: ZINA Doan CNP) 0900 (Dose Auto Held - Provider: ZINA Doan CNP)1400 (Dose Auto Held - Provider: ZINA Doan CNP)1918 (Unheld by provider - Provider: Automatic Discharge Provider) bisacodyl (Dulcolax) suppository 10 mg 10 mg, Rectal, 2 times daily, First dose on Sun07/31/23 at 0600 0600 (Not Given - Provider: Yolanda Luna RN - Reason: Other - Comment: multiple large BMs throughout night)1605 (Given - Provider: Ninoska Nicolas RN) 0607 (Given - Provider: Yolanda Luna RN)1500 (Not Given - Provider: Wendy Dunbar RN - Reason: Other) 0607 (Given - Provider: Yolanda Luna RN)1500 (Not Given - Provider: Wai Spain RN - Reason: Patient/family refused) bumetanide (Bumex) tablet 1 mg 1 mg, Oral, 2 times daily, First dose on Sun08/07/23 at 0800 1001 (Given - Provider: Ninoska Nicolas RN)1505 (Given - Provider: Ninoska Nicolas RN) 0607 (Given - Provider: Yolanda Luna RN)1536 (Given - Provider: Wendy Dunbar RN) 0625 (Given - Provider: Yolanda Luna RN)1426 (Given - Provider: Wai Spain, MATHEUS) cyanocobalamin (Vitamin B-12) tablet 1,000 mcg 1,000 mcg, Oral, Daily, First dose on Sun08/07/23 at 0900 1001 (Given - Provider: Ninoska Nicolas RN) 0838 (Given - Provider: Wendy Dunbar RN) 0850 (Given - Provider: Wai Spain RN) Diclofenac Sodium (Voltaren) 1 % gel 4 g 4 g, Topical, 2 times daily, First dose on Sun07/31/23 at 0900, Recovery & On Unit, Apply to affected areas 0900 (Given - Provider: Ninoska Nicolas RN)2100 (Given - Provider: Yolanda Luna RN) 0900 (Given - Provider: Wendy Dunbar RN)2100 (Given - Provider: Yolanda Luna RN) 0900 (Not Given - Provider: Wai Spain RN - Reason: Other - Comment: patient has large amounts on already) donepezil (Aricept) tablet 10 mg 10 mg, Oral, Nightly, First dose on Sun07/31/23 at 2100 0813 (Unheld by provider - Provider: Reynold Garner MD)2133 (Given - Provider: Yolanda Luna RN) 2117 (Given - Provider: Yolanda Luna RN) famotidine (Pepcid) 20 mg in sodium chloride (PF) 0.9 % 10 mL injection 20 mg, IntraVENous, Administer over 2 Minutes, 2 times daily, First dose on Sun07/30/23 at 2145, IV Push over minimum of 2 minutes - Dilute with 10 mL NS 0845 (Given - Provider: Ninoska Nicolas RN)2158 (Given - Provider: Yolanda Luna RN) 0837 (Given - Provider: Wendy Dunbar RN)2117 (Given - Provider: Yolanda Luna RN) 0848 (Given - Provider: Wai Spain RN) folic acid (Folvite) tablet 1 mg 1 mg, Oral, Daily, First dose on Sun08/07/23 at 0900 1001 (Given - Provider: Ninoska Nicolas RN) 0838 (Given - Provider: Wendy Dunbar RN) 0849 (Given - Provider: Wai Spain RN) gabapentin (Neurontin) capsule 200 mg (CANCELED) 200 mg, Oral, 3 times daily, First dose on Sun07/31/23 at 0900, Recovery & On Unit 0805 (Unheld by provider - Provider: Reynold Garner MD)0845 (Given - Provider: Ninoska Nicolas RN) gabapentin (Neurontin) capsule 300 mg 300 mg, Oral, 3 times daily, First dose (after last modification) on Sun08/07/23 at 1400, Recovery & On Unit 1505 (Given - Provider: Ninoska Nicolas RN)2135 (Given - Provider: Yolanda Luna RN) 0837 (Given - Provider: Wendy Dunbar RN)1315 (Given - Provider: Wendy Dunbar RN)2118 (Given - Provider: Yolanda Luna RN) 0851 (Given - Provider: Wai Spain RN)1425 (Given - Provider: Wai Spain RN) insulin glargine (Lantus) injection 36 Units 36 Units, SubCUTAneous, Nightly, First dose on Sun08/07/23 at 2100 2134 (Given - Provider: Yolanda Luna RN) 211 (Given - Provider: Yolanda Luna RN) Insulin Lispro (Humalog) injection 0-6 Units 0-6 Units, SubCUTAneous, 3 times daily with meals, First dose on Sun08/06/23 at 1700, Low Dose Correction Algorithm Glucose: Dose: LESS than 139 No Insulin 140-199 1 Unit 200-249 2 Units 250-299 3 Units 300-349 4 Units 350-400 5 Units Above 400 6 Units 0900 (Not Given - Provider: Ninoska Nicolas RN - Reason: Order parameters not met)1155 (Given - Provider: Ninoska Nicolas RN)1747 (Given - Provider: Ninoska Nicolas RN) 0836 (Given - Provider: Wendy Dunbar RN)1200 (Not Given - Provider: Wendy Dunbar RN - Reason: Order parameters not met)1700 (Not Given - Provider: Wendy Dunbar RN - Reason: Order parameters not met) 0800 (Not Given - Provider: Wai Spain RN - Reason: Contraindicated)1207 (Given - Provider: Wai Spain RN)1700 (Canceled Entry - Provider: Automatic Discharge Provider - Comment: Automatically canceled at discontinue of medication order) Insulin Lispro (Humalog) injection 5 Units 5 Units, SubCUTAneous, 3 times daily with meals, First dose on Sun08/06/23 at 1700 0900 (Not Given - Provider: Ninoska Nciolas RN - Reason: Order parameters not met - Comment: pt not eating breakfast)1154 (Given - Provider: Ninoska Nicolsa RN)1748 (Given - Provider: Ninoska Nicolas RN) 0853 (Given - Provider: Wendy Dunbar RN)1314 (Given - Provider: Wendy Dunbar, RN)1751 (Given - Provider: Wendy Dunbar RN) 0846 (Given - Provider: Wai Spain, MATHEUS)1207 (Given - Provider: Wai Spain, MATHEUS)1700 (Canceled Entry - Provider: Automatic Discharge Provider - Comment: Automatically canceled at discontinue of medication order) insulin NPH (Isophane) (HumuLIN N,NovoLIN N) injection 18 Units (CANCELED) 18 Units, SubCUTAneous, Every 12 hours, First dose (after last modification) on Sun08/07/23 at 1030 1102 (Given - Provider: Ninoska Nicolas RN) ipratropium-albuterol (Duo-Neb) 0.5-2.5 mg/3 mL nebulizer solution 3 mL 3 mL, Nebulization, 3 times daily, First dose on Sun07/31/23 at 0800 0855 (Not Given - Provider: Humberto Vieira RCP - Reason: Patient/family refused)1247 (Not Given - Provider: Humberto Vieira RCP - Reason: Patient/family refused)1999 (Not Given - Provider: She Martin RCP - Reason: Patient/family refused) 1000 (Not Given - Provider: Gladis Patel RCP - Reason: Patient/family refused)1312 (Not Given - Provider: Gladis Patel RCP - Reason: Patient/family refused)1999 (Canceled Entry - Provider: Automatic Discharge Provider - Comment: Automatically canceled at discontinue of medication order) 0800 (Not Given - Provider: Julio C Sanchez RCP - Reason: Patient/family refused)1400 (Not Given - Provider: Julio C Sanchez RCP - Reason: Patient/family refused) lisinopril tablet 10 mg 10 mg, Oral, Daily, First dose on Sun07/31/23 at 0900, Recovery & On Unit, On hold since Sun07/31/2023 at 2026 until manually unheld 0900 (Dose Auto Held) 0900 (Dose Auto Held) 0900 (Dose Auto Held)1918 (Unheld by provider - Provider: Automatic Discharge Provider) meropenem (Merrem) 2,000 mg in sodium chloride 0.9 % 100 mL IVPB 2,000 mg, IntraVENous, at 33.3 mL/hr, Administer over 180 Minutes, Every 8 hours, First dose on Sun07/30/23 at 2200, Mini-Bag Plus bag, Suspected Indication (Select all that apply): Urinary Tract Infection 0010 (Stopped - Provider: Yolanda Luna RN)0523 (New Bag - Provider: Yolanda Luna RN)0823 (Stopped - Provider: Ninoska Nicolas RN)1605 (New Bag - Provider: Ninoska Nicolas RN)1905 (Stopped - Provider: Yolanda Luna RN)2135 (New Bag - Provider: Yolanda Luna RN) 0035 (Stopped - Provider: Yolanda Luna RN)0607 (New Bag - Provider: Yolanda Luna RN)0907 (Stopped - Provider: Wendy Dunbar RN)1314 (New Bag - Provider: Wendy Dunbar RN)1614 (Stopped - Provider: Wendy Dunbar RN)2117 (New Bag - Provider: Yolanda Luna RN) 0017 (Stopped - Provider: Yolanda Luna RN)0604 (New Bag - Provider: Yolanda Luna RN)0904 (Stopped - Provider: Wai Spain RN)1435 (New Bag - Provider: Wai Spain RN)1735 (Due: Stopped - Provider: Wai Spain RN) miconazole (Micotin) 2 % powder Topical, 2 times daily, First dose on Sun07/31/23 at 0600 0846 (Given - Provider: Ninoska Nicolas RN)2149 (Given - Provider: Yolanda Luna RN) 1100 (Given - Provider: Wendy Dunbar RN)211 (Given - Provider: Yolanda Luna RN) 0847 (Given - Provider: Wai Spain RN) nystatin (Mycostatin) cream Topical, 2 times daily, First dose on Sun07/31/23 at 0900, Recovery & On Unit, Apply to affected area(s) 0846 (Given - Provider: Ninoska Nicolas RN)2149 (Given - Provider: Yolanda Luna RN) 1100 (Given - Provider: Wendy Dunbar RN)2117 (Given - Provider: Yolanda Luna RN) 0846 (Given - Provider: Wai Spain RN) oxyCODONE (Roxicodone) immediate release tablet 5 mg 5 mg, Oral, Every 6 hours, First dose on Sun08/08/23 at 1430 1536 (Given - Provider: Wendy Dunbar RN)2118 (Given - Provider: Yolanda Luna RN) 0206 (Not Given - Provider: Yolanda Luna RN - Reason: Patient/family refused - Comment: patient spit pill out onto bed)0848 (Given - Provider: Wai Spain RN)1424 (Given - Provider: Wai Spain RN) Petrolatum ointment Topical, 2 times daily, First dose (after last modification) on Sun07/31/23 at 0600, Apply to lower extremity and feet . 0529 (Given - Provider: Yolanda Luna RN)1513 (Given - Provider: Ninoska Nicolas RN) 0610 (Given - Provider: Yolanda Luna RN)1540 (Given - Provider: Wendy Dunbar RN) 0625 (Given - Provider: Yolanda Luna RN)1500 (Not Given - Provider: Wai Spain RN - Reason: Patient/family refused) senna-docusate sodium (Senokot-S) 8.6-50 MG tablet 2 tablet 2 tablet, Oral, 2 times daily, First dose on Sun07/31/23 at 0600 0600 (Dose Auto Held - Provider: Reyna Calderón, METHOD CONSULTANT - MANAGER PRESENTATION)0815 (Unheld by provider - Provider: Reynold Garner MD)1505 (Given - Provider: Ninoska Nicolas RN) 0607 (Given - Provider: Yolanda Luna RN)1500 (Not Given - Provider: Wendy Dunbar RN - Reason: Other) 0625 (Given - Provider: Yolanda Luna RN)1500 (Not Given - Provider: Wai Spain RN - Reason: Patient/family refused) sertraline (Zoloft) tablet 50 mg 50 mg, Oral, Daily, First dose on Sun07/31/23 at 0900 0822 (Unheld by provider - Provider: Reynold Garner MD)0845 (Given - Provider: Ninoska Nicolas RN) 0838 (Given - Provider: Wendy Dunbar RN) 0851 (Given - Provider: Wai Spain RN) sodium chloride 0.9% (NS) flush 10 mL 10 mL, IntraVENous, Every 12 hours scheduled (2 times per day), First dose on Sun07/30/23 at 2145 0845 (Given - Provider: Ninoska Nicolas, MATHEUS)2152 (Given - Provider: Yolanda Luna RN) 0854 (Given - Provider: Wendy Dunbar RN)2117 (Given - Provider: Yolanda Luna RN) 0849 (Given - Provider: Wai Spain RN) sodium chloride 0.9% (NS) flush 10 mL 10 mL, IntraCATHeter, Every 12 hours, First dose on Sun08/06/23 at 1900, Administer to each lumen, regardless of whether or not fluids are infusing. Line Care. Use 10 mL or larger syringe. 0700 (Given - Provider: Yolanda Luna RN)1947 (Given - Provider: Yolanda Luna RN) 0700 (Given - Provider: Yolanda Luna RN)1900 (Given - Provider: Yolanda Luna RN) 0700 (Given - Provider: Yolanda Luna RN) sodium chloride 3 % hypertonic nebulizer solution 4 mL 4 mL, Nebulization, 2 times daily, First dose on Sun08/03/23 at 1500 0855 (Not Given - Provider: Humberto Vieira RCP - Reason: Patient/family refused)1999 (Not Given - Provider: She Martin RCP - Reason: Patient/family refused) 1000 (Not Given - Provider: Gladis Patel RCP - Reason: Patient/family refused)1999 (Canceled Entry - Provider: Automatic Discharge Provider - Comment: Automatically canceled at discontinue of medication order) 0800 (Not Given - Provider: Julio C Sanchez RCP - Reason: Patient/family refused) stomahesive in petrolatum (ET Mix) Topical, Every 8 hours, First dose on Sun07/30/23 at 2230 0530 (Given - Provider: Yolanda Luna RN)1506 (Given - Provider: Ninoska Nicolas, RN)2138 (Given - Provider: Yolanda Luna RN) 0610 (Given - Provider: Yolanda Luna RN)1539 (Given - Provider: Wendy Dunbar RN)2130 (Given - Provider: Yolanda Luna RN) 0607 (Given - Provider: Yolanda Luna RN)1430 (Not Given - Provider: Wai Spain RN - Reason: Patient/family refused) Continuous Medication Order 08/07/2023 08/08/2023 08/09/2023 heparin 25,000 units in dextrose 5% 250mL infusion (premix) (CANCELED) 5-30 Units/kg/hr 159 kg (7.95-47.7 mL/hr, rounded to 8-47.7 mL/hr), IntraVENous, Continuous, Starting on Sun07/30/23 at 2345, LOW Dose Heparin Weight Based Dosing (CAD/STEMI/NSTEMI/AFIB/ECMO) >>>>Initial dose: 6 units/kg/hr<<<< Subsequent dosing: aPTT < 30 Heparin Full re-bolus Increase infusion by 2 units/kg/hr - notify prescriber; aPTT 30-49.9 Heparin Half re-bolus Increase infusion by 1 unit/kg/hr; aPTT 50-70.9 No bolus No change; aPTT 71-95.9 Hold heparin for 60 min Decrease infusion by 1 unit/kg/hr; aPTT > 95.9 Hold heparin for 60 min Decrease infusion by 2 units/kg/hr - notify prescriber; Check aPTT: 6 hours after initiation and 6 hours after every dose change - every 12 hrs x 1 day after 2 consecutive therapeutic aPTT - daily after every 12 hrs x 1 day is complete. 0426 (Rate/Dose Verify - Provider: Yolanda Luna RN - Comment: APTT 53.9, no bolus no change per protocol)0844 (Stopped - Provider: Ninoska Nicolas RN) PRN Medication Order 08/07/2023 08/08/2023 08/09/2023 acetaminophen (Tylenol) suppository 650 mg(Linked Group 1) 650 mg, Rectal, Every 6 hours PRN, mild pain (1-3), fever, For temp greater than 100.4 F (38 C), Starting on Sun07/30/23 at 2128, Administer if oral route cannot be used. Maximum dose of acetaminophen is 4000 mg from all sources in 24 hours., , On hold since Sun07/31/2023 at 0315 until manually unheld 1917 (Unheld by provider - Provider: Automatic Discharge Provider) acetaminophen (Tylenol) tablet 650 mg(Linked Group 1) 650 mg, Oral, Every 6 hours PRN, mild pain (1-3), fever, For temp greater than 100.4 F (38 C), Starting on Sun07/30/23 at 2128, Maximum dose of acetaminophen is 4000 mg from all sources in 24 hours., , On hold since Sun07/31/2023 at 0315 until manually unheld 1917 (Unheld by provider - Provider: Automatic Discharge Provider) dextrose 5 % infusion 100 mL/hr, IntraVENous, PRN, Blood sugar less than 70mg/dL, Starting on Sun07/30/23 at 2143, Start infusion following administration of dextrose 50% or glucagon. dextrose 50 % solution 12.5 g 12.5 g, IntraVENous, PRN, low blood sugar, Blood glucose less than 70 mg/dL and patient NOT ALERT or NPO., Starting on Sun07/30/23 at 2143, If patient does not respond within 5 minutes, repeat dose x1. Start D5W at 100 mL/hour until ordering provider can be reached. Repeat blood glucose in 15 minutes. If blood glucose is less than 70 mg/dL, repeat treatment and recheck blood glucose in 15 minutes x2. If using Glucostabilizer, dose as instructed per system. glucagon (human recombinant) injection 1 mg 1 mg, IntraMUSCular, PRN, low blood sugar, Blood glucose less than 70 mg/dL and patient NOT ALERT or NPO and does not have IV access., Starting on Sun07/30/23 at 2143, After administration, attempt intravenous access and start D5W at 100 mL/hr. Repeat blood glucose in 15 minutes x2 and notify provider. glucose oral gel 15 g 15 g, Oral, As needed, low blood sugar, Starting on Sun07/30/23 at 2143, If blood glucose less than 50 mg/dL and patient ALERT and NOT NPO, give 2 tubes glucose gel. If blood glucose less than 70 mg/dL and patient ALERT and NOT NPO, give 1 tube glucose gel. Repeat blood glucose in 15 minutes. If blood glucose is less than 70 mg/dL, repeat treatment and recheck blood glucose in 15 minutes x2 and notify provider. heparin flush injection 250 Units 250 Units, IntraCATHeter, PRN, line care, after blood draws and after infusion, Starting on Sun08/06/23 at 1844, Do NOT administer to lumens with continuous fluids currently infusing. Line Care. Use 10 mL or larger syringe. labetalol (Normodyne,Trandate) injection 10 mg 10 mg, IntraVENous, Every 4 hours PRN, high blood pressure, 1st line for SBP >180, Starting on Sun07/30/23 at 2202 LORazepam (Ativan) tablet 0.5 mg 0.5 mg, Oral, Every 6 hours PRN, anxiety, Starting on Sun08/07/23 at 1004 1239 (Given - Provider: Ninoska Nicolas RN)2135 (Given - Provider: Yolanda Luna RN) 0322 (Given - Provider: Yolanda Luna RN) naloxone (Narcan) injection 0.4 mg 0.4 mg, IntraVENous, PRN, opioid reversal, Starting on Sun08/07/23 at 1004, For oversedation/difficult to rouse, pinpoint pupils, RR < 8; notify primary team automobile sales consultant if used ondansetron (Zofran) injection 4 mg(Linked Group 2) 4 mg, IntraVENous, Every 6 hours PRN, nausea, vomiting, Starting on Sun07/30/23 at 2128, 1st Line. Give IV if patient is unable to take orally. If inadequate response within 60 minutes, proceed to next-line agent or contact provider if no further options ordered. ondansetron ODT (Zofran-ODT) disintegrating tablet 4 mg(Linked Group 2) 4 mg, Oral, Every 8 hours PRN, nausea, vomiting, Starting on Sun07/30/23 at 2128, 1st Line. If inadequate response within 60 minutes, proceed to next-line agent or contact provider if no further options ordered. Patient should allow tablet to dissolve on tongue. Do not remove from blister pack until just before administering. oxyCODONE (Roxicodone) immediate release tablet 5 mg 5 mg, Oral, Every 4 hours PRN, moderate pain (4-6), severe pain (7-10), Starting on Sun08/07/23 at 1004 1239 (Given - Provider: Ninoska Nicolas, MATHEUS)1812 (Given - Provider: Ninoska Nicolas, RN)2318 (Given - Provider: Yolanda Luna RN) 0322 (Given - Provider: Yolanda Luna RN)0954 (Given - Provider: Wendy Dunbar RN) polyethylene glycol (PEG) 3350 (Miralax) packet 17 g 17 g, Oral, Daily PRN, constipation, Starting on Sun07/30/23 at 2128, 1st line for treatment of constipation - give scheduled if no bowel movement in past 24 hours. sodium chloride 0.9% (NS) flush 10 mL 10 mL, IntraCATHeter, PRN, line care, before blood draws, before and after infusion or medication administration, Starting on Sun08/06/23 at 1844, Use 10 mL or larger syringe. sodium chloride 0.9% (NS) flush 5-40 mL 5-40 mL, IntraVENous, PRN, line care, before and after blood draws, infusion, or medication administration, Starting on Sun07/31/23 at 1022, For Line Patency: Peripheral IV = 5 mL; Midline or Central Line = 10 mL/lumen. If following IV push medication, administer flush at same rate as the IV push. Flush volume is determined by type of infusion therapy being given. For non-viscous solutions use: Peripheral IV = 5 mL Midline or Central Line = 10 mL/lumen For viscous solutions (i.e. blood components, parenteral nutrition, contrast media, or after obtaining blood sample) use: Peripheral IV = 10 mL Midline or Central Line = 20 mL/lumen Linked Groups Order Group 1: acetaminophen (Tylenol) tablet 650 mgJump to med 650 mg, Oral, Every 6 hours PRN, mild pain (1-3), fever, For temp greater than 100.4 F (38 C), Starting on Sun07/30/23 at 2128, Maximum dose of acetaminophen is 4000 mg from all sources in 24 hours., , On hold since Sun07/31/2023 at 0315 until manually unheld, On hold since Sun07/31/2023 at 0315 until manually unheld Or acetaminophen (Tylenol) suppository 650 mgJump to med 650 mg, Rectal, Every 6 hours PRN, mild pain (1-3), fever, For temp greater than 100.4 F (38 C), Starting on Sun07/30/23 at 2128, Administer if oral route cannot be used. Maximum dose of acetaminophen is 4000 mg from all sources in 24 hours., , On hold since Sun07/31/2023 at 0315 until manually unheld, On hold since Sun07/31/2023 at 0315 until manually unheld Group 2: ondansetron ODT (Zofran-ODT) disintegrating tablet 4 mgJump to med 4 mg, Oral, Every 8 hours PRN, nausea, vomiting, Starting on Sun07/30/23 at 2128, 1st Line. If inadequate response within 60 minutes, proceed to next-line agent or contact provider if no further options ordered. Patient should allow tablet to dissolve on tongue. Do not remove from blister pack until just before administering. Or ondansetron (Zofran) injection 4 mgJump to med 4 mg, IntraVENous, Every 6 hours PRN, nausea, vomiting, Starting on Sun07/30/23 at 2128, 1st Line. Give IV if patient is unable to take orally. If inadequate response within 60 minutes, proceed to next-line agent or contact provider if no further options ordered. Scheduled Medication Order 09/25/2023 09/26/2023 09/27/2023 acetaminophen (Tylenol) tablet 1,000 mg 1,000 mg, Oral, Once, On [place] 09/27/23 at 1015, For 1 dose, Preprocedure, Administer 60 minutes prior to surgery. 1015 (Not Given - Pr ovider: Mee Liu RN - Reason: Other - Comment: took at home) ciprofloxacin (Cipro) IVPB 400 mg (COMPLETED) 400 mg, IntraVENous, at 200 mL/hr, Administer over 60 Minutes, Once, On [place] 09/27/23 at 1015, For 1 dose, Preprocedure, Administer 60 minutes prior to surgery. premix bag, Suspected Indication (Select all that apply): Surgical Prophylaxis, Authorizing ID Provider/Protocol: myself 1100 (Given - Provid er: Darrick Do, METHOD CONSULTANT - ORACLE SOA CONSULTANT) famotidine (Pepcid) tablet 20 mg (COMPLETED)(Linked Group 1) 20 mg, Oral, Once, On [place] 09/27/23 at 1015, For 1 dose, Preprocedure, IV or Oral 1023 (Given - Provid er: Mee Liu RN) sodium chloride 0.9% (NS) flush 10 mL 10 mL, IntraVENous, Every 12 hours scheduled (2 times per day), First dose on [place] 09/27/23 at 1015, Preprocedure 1015 (Canceled Entry - Provider: Automatic Discharge Provider - Comment: Automatically canceled at discontinue of medication order) sodium chloride 0.9% (NS) flush 5-40 mL 5-40 mL, IntraVENous, Every 12 hours, First dose on [place] 09/27/23 at 1015, Preprocedure, For Line Patency: Peripheral IV = 5 mL; Midline or Central Line = 10 mL/lumen. If following IV push medication, administer flush at same rate as the IV push. Flush volume is determined by type of infusion therapy being given. For non-viscous solutions use: Peripheral IV = 5 mL Midline or Central Line = 10 mL/lumen For viscous solutions (i.e. blood components, parenteral nutrition, contrast media, or after obtaining blood sample) use: Peripheral IV = 10 mL Midline or Central Line = 20 mL/lumen 1015 (Canceled Entry - Provider: Automatic Discharge Provider - Comment: Automatically canceled at discontinue of medication order) Continuous Medication Order 09/25/2023 09/26/2023 09/27/2023 lactated Ringer's (LR) infusion 50 mL/hr, IntraVENous, Continuous, Starting on [place] 09/27/23 at 1015, Preprocedure, Upon admission to sameday - please start iv if patient does not have iv access. Use 500ml NS for patients on dialysis. 1015 (New Bag - Prov ider: Mee Liu RN)1052 (Continued by Anesthesia - Provider: ZINA Joshua CRNA)1139 (Paused - Provider: ZINA Joshua CRNA - Comment: Switch to gravity)1140 (Restarted - Provider: ZINA Joshua CRNA) PRN Medication Order 09/25/2023 09/26/2023 09/27/2023 ALPRAZolam (Xanax) disintegrating tablet 0.25 mg 0.25 mg, Oral, Once PRN, anxiety, Starting on [place] 09/27/23 at 1014, For 1 dose, Preprocedure, Please do not administer prior to obtaining consent and/or history and physical. dextrose 5 % infusion 100 mL/hr, IntraVENous, PRN, Blood sugar less than 70mg/dL, Starting on [place] 09/27/23 at 1014, Preprocedure, Start infusion following administration of dextrose 50% or glucagon. dextrose 5 % infusion 100 mL/hr, IntraVENous, PRN, Blood sugar less than 70mg/dL, Starting on [place] 09/27/23 at 1021, Preprocedure, Start infusion following administration of dextrose 50% or glucagon. dextrose 50 % solution 12.5 g 12.5 g, IntraVENous, PRN, low blood sugar, Blood glucose less than 70 mg/dL and patient NOT ALERT or NPO., Starting on [place] 09/27/23 at 1014, Preprocedure, If patient does not respond within 5 minutes, repeat dose x1. Start D5W at 100 mL/hour until ordering provider can be reached. Repeat blood glucose in 15 minutes. If blood glucose is less than 70 mg/dL, repeat treatment and recheck blood glucose in 15 minutes x2. If using Glucostabilizer, dose as instructed per system. dextrose 50 % solution 12.5 g 12.5 g, IntraVENous, PRN, low blood sugar, Blood glucose less than 70 mg/dL and patient NOT ALERT or NPO., Starting on [place] 09/27/23 at 1021, Preprocedure, If patient does not respond within 5 minutes, repeat dose x1. Start D5W at 100 mL/hour until ordering provider can be reached. Repeat blood glucose in 15 minutes. If blood glucose is less than 70 mg/dL, repeat treatment and recheck blood glucose in 15 minutes x2. If using Glucostabilizer, dose as instructed per system. glucagon (human recombinant) injection 1 mg 1 mg, IntraMUSCular, PRN, low blood sugar, Blood glucose less than 70 mg/dL and patient NOT ALERT or NPO and does not have IV access., Starting on [place] 09/27/23 at 1014, Preprocedure, After administration, attempt intravenous access and start D5W at 100 mL/hr. Repeat blood glucose in 15 minutes x2 and notify provider. glucagon (human recombinant) injection 1 mg 1 mg, IntraMUSCular, PRN, low blood sugar, Blood glucose less than 70 mg/dL and patient NOT ALERT or NPO and does not have IV access., Starting on [place] 09/27/23 at 1021, Preprocedure, After administration, attempt intravenous access and start D5W at 100 mL/hr. Repeat blood glucose in 15 minutes x2 and notify provider. glucose oral gel 15 g 15 g, Oral, As needed, low blood sugar, Starting on [place] 09/27/23 at 1014, Preprocedure, If blood glucose less than 50 mg/dL and patient ALERT and NOT NPO, give 2 tubes glucose gel. If blood glucose less than 70 mg/dL and patient ALERT and NOT NPO, give 1 tube glucose gel. Repeat blood glucose in 15 minutes. If blood glucose is less than 70 mg/dL, repeat treatment and recheck blood glucose in 15 minutes x2 and notify provider. glucose oral gel 15 g 15 g, Oral, As needed, low blood sugar, Starting on [place] 09/27/23 at 1021, Preprocedure, If blood glucose less than 50 mg/dL and patient ALERT and NOT NPO, give 2 tubes glucose gel. If blood glucose less than 70 mg/dL and patient ALERT and NOT NPO, give 1 tube glucose gel. Repeat blood glucose in 15 minutes. If blood glucose is less than 70 mg/dL, repeat treatment and recheck blood glucose in 15 minutes x2 and notify provider. Insulin Lispro (Humalog) injection 0-12 Units 0-12 Units, SubCUTAneous, PRN, high blood sugar, Surgery patient, Starting on [place] 09/27/23 at 1014, For 3 doses, Preprocedure, Corrective Low Dose Algorithm Glucose: Dose: 70-180 No Insulin 181-240 4 Unit 241-300 6 Units 301-350 8 Units 351-400 10 Units Over 400 12 Units and notify physician 1030 (Given - Provid er: Mee Liu, MATHEUS)1431 (Given - Provider: Christiane Crowe RN) Insulin Lispro (Humalog) injection 0-20 Units 0-20 Units, SubCUTAneous, PRN, high blood sugar, Surgery Patient, Starting on [place] 09/27/23 at 1022, For 3 doses, Preprocedure, Medium Dose Corrective Algorithm Glucose: Dose: 70-180 No Insulin 181-240 6 Unit 241-300 10 Units 301-350 12 Units 351-400 16 Units Over 400 20 Units and notify physician sodium chloride 0.9 % infusion 5-250 mL/hr, IntraVENous, PRN, if patient receiving piggyback infusions and maintenance fluids are not ordered OR KVO fluids to protect IV site / prevent frequent line interruptions / long duration, Starting on [place] 09/27/23 at 1014, Preprocedure, For piggyback infusion, administer at same rate as piggyback for a total of 25 mL. Enter 25 mL into dose field and piggyback rate into rate field of order. If piggyback is infusing at a rate less than 100 mL/hr, enter 25 mL into dose field and 100 mL/hr into rate field of order. For KVO fluids, enter rate of 20 mL/hr or less into rate field of order. sodium chloride 0.9 % infusion 5-250 mL/hr, IntraVENous, PRN, if patient receiving piggyback infusions and maintenance fluids are not ordered OR KVO fluids to protect IV site / prevent frequent line interruptions/ long duration, Starting on [place] 09/27/23 at 1014, Preprocedure, For piggyback infusion, administer at same rate as piggyback for a total of 25 mL. Enter 25 mL into dose field and piggyback rate into rate field of order. If piggyback is infusing at a rate less than 100 mL/hr, enter 25 mL into dose field and 100 mL/hr into rate field of order. For KVO fluids, enter rate of 20 mL/hr or less into rate field of order. sodium chloride 0.9 % irrigation solution (CANCELED) As needed, Starting on [place] 09/27/23 at 1118, Intraprocedure 1118 (Given - Provid er: Bashir Vásquez MD) sodium chloride 0.9% (NS) flush 5-40 mL 5-40 mL, IntraVENous, PRN, line care, After every IV line use, Starting on [place] 09/27/23 at 1014, Preprocedure, For Line Patency: Peripheral IV = 5 mL; Midline or Central Line = 10 mL/lumen. If following IV push medication, administer flush at same rate as the IV push. Flush volume is determined by type of infusion therapy being given. For non-viscous solutions use: Peripheral IV = 5 mL Midline or Central Line = 10 mL/lumen For viscous solutions (i.e. blood components, parenteral nutrition, contrast media, or after obtaining blood sample) use: Peripheral IV = 10 mL Midline or Central Line = 20 mL/lumen sterile water irrigation solution (CANCELED) As needed, Starting on [place] 09/27/23 at 1118, Intraprocedure 1118 (Given - Provid er: Bashir Vásquez MD) Linked Groups Order Group 1: famotidine (Pepcid) tablet 20 mg (COMPLETED)Jump to med 20 mg, Oral, Once, On [place] 09/27/23 at 1015, For 1 dose, Preprocedure, IV or Oral Or famotidine (Pepcid) 20 mg in sodium chloride (PF) 0.9 % 10 mL injection (COMPLETED) 20 mg, IntraVENous, Administer over 2 Minutes, Once, On [place] 09/27/23 at 1015, For 1 dose, Preprocedure, IV or Oral Scheduled Medication Order 11/27/2023 11/28/2023 11/29/2023 ammonium lactate (Lac-Hydrin) 12 % lotion Topical, Daily, First dose on Sun11/27/23 at 0600, Bilateral lower legs: Venous stasis dermatitis - Clean with Hibiclens, apply Lac-hydrin then leave LINDSEY daily 0820 (Given - Provider: Kelsie Wren RN) 0600 (Not Given - Provider: Neelima Arevalo RN - Reason: Patient/family refused) 0600 (Given - Provider: Carlos Lopez RN) apixaban (Eliquis) tablet 5 mg 5 mg, Oral, 2 times daily, First dose on Sun11/23/23 at 0900, Anticoagulant, Indications: Thromboembolism secondary to Atrial Fibrillation 0812 (Given - Provider: Kelsie Wren RN)2009 (Given - Provider: Ally Do RN) 0835 (Given - Provider: Charlotte Mccarty RN)2053 (Given - Provider: Carlos Lopez, RN) 0817 (Given - Provider: Abdi Abraham, MATHEUS)2100 (Canceled Entry - Provider: Automatic Discharge Provider - Comment: Automatically canceled at discontinue of medication order) atorvastatin (Lipitor) tablet 20 mg 20 mg, Oral, Daily, First dose on Sun11/23/23 at 0900 0812 (Given - Provider: Kelsie Wren RN) 0835 (Given - Provider: Charlotte Mccarty RN)0836 (Given - Provider: Charlotte Mccarty RN) 0817 (Given - Provider: Abdi Abraham, MATHEUS) baclofen (Lioresal) tablet 5 mg 5 mg, Oral, 3 times daily, First dose on Sun11/23/23 at 0900 0812 (Given - Provider: Kelsie Wren RN)1525 (Given - Provider: Kelsie Wren RN)2009 (Given - Provider: Ally Do RN) 0836 (Given - Provider: Charlotte Mccarty RN)1535 (Given - Provider: Charlotte Mccarty RN)2053 (Given - Provider: Carlos Lopez, MATHEUS) 0900 (Given - Provider: Abdi Abraham, MATHEUS)1454 (Given - Provider: Abdi Abraham RN)2100 (Canceled Entry - Provider: Automatic Discharge Provider - Comment: Automatically canceled at discontinue of medication order) bumetanide (Bumex) tablet 1 mg 1 mg, Oral, 2 times daily, First dose on Sun11/23/23 at 0600 0600 (Dose Auto Held - Provider: Jeffry Sal MD)1500 (Dose Auto Held - Provider: Jeffry Sal MD) 0600 (Dose Auto Held)0955 (Unheld by provider - Provider: Mari Garg, METHOD CONSULTANT - MANAGER PRESENTATION)1535 (Given - Provider: Charlotte Mccarty RN) 0620 (Given - Provider: Carlos Lopez RN)1454 (Given - Provider: Abdi Abraham, RN) Diclofenac Sodium (Voltaren) 1 % gel 4 g 4 g, Topical, 2 times daily, First dose on Sun11/23/23 at 0250, Apply to affected areas 0821 (Given - Provider: Kelsie Wren RN)2099 (Not Given - Provider: Cathy Pelayo RN - Reason: Patient/family refused) 0900 (Not Given - Provider: Charlotte Mccarty RN - Reason: Patient/family refused)2099 (Given - Provider: Carlos Lopez RN) 08 (Given - Provider: Abdi Abraham, RN)2099 (Canceled Entry - Provider: Automatic Discharge Provider - Comment: Automatically canceled at discontinue of medication order) donepezil (Aricept) tablet 10 mg 10 mg, Oral, Nightly, First dose on Sun11/23/23 at 2099 2008 (Given - Provider: Ally Do RN) 2052 (Given - Provider: Carlos Lopez RN) 2099 (Canceled Entry - Provider: Automatic Discharge Provider - Comment: Automatically canceled at discontinue of medication order) gabapentin (Neurontin) capsule 300 mg 300 mg, Oral, 3 times daily, First dose on Sun11/23/23 at 0900 0813 (Given - Provider: Kelsie Wren RN)1525 (Given - Provider: Kelsie Wren RN)2008 (Given - Provider: Ally Do RN) 0835 (Given - Provider: Charlotte Mccarty RN)1535 (Given - Provider: Charlotte Mccarty RN)2052 (Given - Provider: Carlos Lopez RN) 0817 (Given - Provider: Abdi Abraham, RN)145 (Given - Provider: Abdi Abraham, RN)2099 (Canceled Entry - Provider: Automatic Discharge Provider - Comment: Automatically canceled at discontinue of medication order) insulin glargine (Lantus) injection 30 Units 30 Units, SubCUTAneous, Nightly, First dose on Sun11/23/23 at 2099 2008 (Given - Provider: Ally Do RN) 2051 (Given - Provider: Carlos Lopez RN) 2099 (Canceled Entry - Provider: Automatic Discharge Provider - Comment: Automatically canceled at discontinue of medication order) Insulin Lispro (Humalog) injection 0-12 Units(Linked Group 1) 0-12 Units, SubCUTAneous, 3 times daily with meals, First dose on Sun11/25/23 at 1315, Medium Dose Correction Algorithm Glucose: Dose: LESS than 139 No Insulin 140-199 2 Unit 200-249 4 Units 250-299 6 Units 300-349 8 Units 350-400 10 Units Above 400 12 Units 0818 (Given - Provider: Kelsie Wren, MATHEUS)1249 (Given - Provider: Kelsie Wren, MATHEUS)1652 (Given - Provider: Kelsie Wren, MATHEUS) 0834 (Given - Provider: Charlotte Mccarty, RN)1253 (Given - Provider: Charlotte Mccarty, RN)1834 (Given - Provider: Charlotte Mccarty, RN) 0820 (Given - Provider: Abdi Abraham, RN)1137 (Given - Provider: Abdi Abraham, RN)1732 (Given - Provider: Abdi Abraham, MATHEUS) Insulin Lispro (Humalog) injection 0-12 Units(Linked Group 1) 0-12 Units, SubCUTAneous, Nightly, First dose on 11/25/23 at 2100, If continuous tube feedings/TPN/NPO, give correction dose based on result, no reduction in dose. If eating or bolus tube feeding: Medium Dose Correction Algorithm Glucose: Dose: LESS than 139 No Insulin 140-199 2 Unit 200-249 4 Units 250-299 6 Units 300-349 8 Units 350-400 10 Units Above 400 12 Units 2008 (Given - Provider: Ally Do RN) 2051 (Given - Provider: Carlos Lopez RN) 2099 (Canceled Entry - Provider: Automatic Discharge Provider - Comment: Automatically canceled at discontinue of medication order) Insulin Lispro (Humalog) injection 5 Units (CANCELED) 5 Units, SubCUTAneous, 3 times daily with meals, First dose on Sun11/23/23 at 0800 0813 (Canceled Entry - Provider: Kelsie Wren, AMTHEUS)0818 (Given - Provider: Kelsie Wren, MATHEUS) Insulin Lispro (Humalog) injection 7 Units 7 Units, SubCUTAneous, 3 times daily with meals, First dose (after last modification) on Sun11/27/23 at 1200, Give 7 units prior to breakfast, 7 units prior to lunch, and 7 units prior to dinner, only when tray is in room and patient eating 50% of meal. If meal intake is uncertain then immediate post meal injection is acceptable. Give prior to bolus tube feedings. Hold if patient is NPO or if pre-meal blood glucose is less than or equal to 70 mg/dL. 1248 (Given - Provider: Kelsie Wren RN)1652 (Given - Provider: Kelsie Wren RN) 0835 (Given - Provider: Charlotte Mccarty RN)1253 (Given - Provider: Charlotte Mccarty, RN)1835 (Given - Provider: Charlotte Mccarty RN) 0817 (Given - Provider: Abdi Abraham RN)1138 (Given - Provider: Abdi Abraham, MATHEUS)1734 (Given - Provider: Abdi Abraham RN) melatonin tablet 6 mg 6 mg, Oral, Nightly, First dose on Sun11/23/23 at 2100 2008 (Given - Provider: Ally Do RN) 205 (Given - Provider: Carlos Lopez RN) 2100 (Canceled Entry - Provider: Automatic Discharge Provider - Comment: Automatically canceled at discontinue of medication order) meropenem (Merrem) 2,000 mg in sodium chloride 0.9 % 100 mL IVPB 2,000 mg, IntraVENous, at 33.3 mL/hr, Administer over 3 Hours, Every 8 hours, First dose on Sun11/23/23 at 1700, Mini-Bag Plus bag, Suspected Indication (Select all that apply): Sepsis of Unknown Etiology 0111 (New Bag - Provider: Ally Do RN)0316 (Rate/Dose Verify - Provider: Ally Do RN)0411 (Stopped - Provider: Ally Do RN)0823 (New Bag - Provider: Kelsie Wren RN)1123 (Stopped - Provider: Kelsie Wren RN)1821 (New Bag - Provider: Kelsie Wren RN)2121 (Stopped - Provider: Cathy Pelayo RN) 0200 (Not Given - Provider: Neelima Mickey, RN - Reason: Loss of IV access)0900 (Canceled Entry - Provider: Automatic Discharge Provider - Comment: Automatically canceled at discontinue of medication order)1425 (New Bag - Provider: Abdi Abraham RN)1725 (Stopped - Provider: Charlotte Mccarty RN)2300 (New Bag - Provider: Carlos Lopez RN) 0200 (Stopped - Provider: Carlos Lopez RN)0700 (New Bag - Provider: Carlos Lopez RN)1000 (Stopped - Provider: Abdi Abraham RN)1453 (New Bag - Provider: Abdi Abraham RN)1753 (Stopped - Provider: Christina Clemens RN)2300 (Canceled Entry - Provider: Automatic Discharge Provider - Comment: Automatically canceled at discontinue of medication order) miconazole (Micotin) 2 % powder Topical, 2 times daily, First dose on Sun11/23/23 at 0250, Left breast: Fungal dermatitis - Clean with soap and water, dry well, Miconazole powder BID and PRN Abdomen folds, bilateral knee folds: Fungal dermatitis - Clean with soap and water, dry well, Miconazole powder BID and PRN 0820 (Given - Provider: Kelsie Wren RN)2100 (Not Given - Provider: Cathy Pelayo RN - Reason: Patient/family refused) 0900 (Not Given - Provider: Charlotte Mccarty RN - Reason: Patient/family refused)2100 (Given - Provider: Carlos Lopez RN) 0825 (Given - Provider: Abdi Abraham RN)2100 (Canceled Entry - Provider: Automatic Discharge Provider - Comment: Automatically canceled at discontinue of medication order) sodium chloride 0.9% (NS) flush 10 mL 10 mL, IntraCATHeter, Every 12 hours, First dose on Sun11/28/23 at 1400, Administer to each lumen, regardless of whether or not fluids are infusing. Line Care. Use 10 mL or larger syringe. 1400 (Not Given - Provider: Charlotte Mccarty RN - Reason: Other) 0200 (Not Given - Provider: Carlos Lopez RN - Reason: IV Fluids Infusing)1400 (Not Given - Provider: Charlotte Mccarty RN - Reason: Other) stomahesive in petrolatum (ET Mix) Topical, Every 8 hours, First dose on Sun11/26/23 at 1115, Bilateral buttocks: MASD (bodily fluids) -Clean with soap and water, apply ET mix then leave SPRINKLING SYSTEM IRRIGATOR TID and PRN 0820 (Given - Provider: Kelsie Wren RN)1249 (Given - Provider: Kelsie Wren RN)1915 (Not Given - Provider: Cathy Pelayo RN - Reason: Patient/family refused) 0315 (Not Given - Provider: Neelima Arevalo RN - Reason: Patient/family refused)111 (Not Given - Provider: Charlotte Mccarty RN - Reason: Other)191 (Given - Provider: Carlos Lopez, MATHEUS) 0315 (Given - Provider: Carlos Lopez RN)1141 (Given - Provider: Abdi Abraham RN)191 (Canceled Entry - Provider: Automatic Discharge Provider - Comment: Automatically canceled at discontinue of medication order) vancomycin IVPB 1500 mg in 250 mL NS (premix) (CANCELED) 1,500 mg, IntraVENous, at 125 mL/hr, Administer over 120 Minutes, Every 24 hours, First dose (after last modification) on Sun11/27/23 at 0845, premix bag, Suspected Indication (Select all that apply): Urinary Tract Infection 1043 (New Bag - Provider: Kelsie Wren RN)1243 (Stopped - Provider: Kelsie Wern RN) 0845 (Not Given - Provider: Charlotte Mccarty RN - Reason: Other - Comment: No IV access) 0829 (New Bag - Provider: Abdi Abraham RN)1029 (Stopped - Provider: Abdi Abraham RN) PRN Medication Order 11/27/2023 11/28/2023 11/29/2023 acetaminophen (Tylenol) suppository 650 mg(Linked Group 2) 650 mg, Rectal, Every 6 hours PRN, mild pain (1-3), fever, For temp greater than 100.4 F (38 C), Starting on Sun11/23/23 at 0249, Administer if oral route cannot be used. Maximum dose of acetaminophen is 4000 mg from all sources in 24 hours. acetaminophen (Tylenol) tablet 650 mg(Linked Group 2) 650 mg, Oral, Every 6 hours PRN, mild pain (1-3), fever, For temp greater than 100.4 F (38 C), Starting on Sun11/23/23 at 0249, Maximum dose of acetaminophen is 4000 mg from all sources in 24 hours. dextrose 5 % infusion 100 mL/hr, IntraVENous, PRN, Blood sugar less than 70mg/dL, Starting on Sun11/23/23 at 0249, Start infusion following administration of dextrose 50% or glucagon. dextrose 50 % solution 12.5 g 12.5 g, IntraVENous, PRN, low blood sugar, Blood glucose less than 70 mg/dL and patient NOT ALERT or NPO., Starting on Sun11/23/23 at 0249, If patient does not respond within 5 minutes, repeat dose x1. Start D5W at 100 mL/hour until ordering provider can be reached. Repeat blood glucose in 15 minutes. If blood glucose is less than 70 mg/dL, repeat treatment and recheck blood glucose in 15 minutes x2. If using Glucostabilizer, dose as instructed per system. glucagon (human recombinant) injection 1 mg 1 mg, IntraMUSCular, PRN, low blood sugar, Blood glucose less than 70 mg/dL and patient NOT ALERT or NPO and does not have IV access., Starting on Sun11/23/23 at 0249, After administration, attempt intravenous access and start D5W at 100 mL/hr. Repeat blood glucose in 15 minutes x2 and notify provider. glucose oral gel 15 g 15 g, Oral, As needed, low blood sugar, Starting on Sun11/23/23 at 0249, If blood glucose less than 50 mg/dL and patient ALERT and NOT NPO, give 2 tubes glucose gel. If blood glucose less than 70 mg/dL and patient ALERT and NOT NPO, give 1 tube glucose gel. Repeat blood glucose in 15 minutes. If blood glucose is less than 70 mg/dL, repeat treatment and recheck blood glucose in 15 minutes x2 and notify provider. miconazole (Micotin) 2 % powder Topical, PRN, itching, Starting on Sun11/26/23 at 1106, Left breast: Fungal dermatitis - Clean with soap and water, dry well, Miconazole powder BID and PRN Abdomen folds, bilateral knee folds: Fungal dermatitis - Clean with soap and water, dry well, Miconazole powder BID and PRN naloxone (Narcan) injection 0.4 mg 0.4 mg, IntraVENous, Every 5 min PRN, opioid reversal, respiratory depression, Starting on Sun11/23/23 at 2108, +++ For RR <10, pinpoint pupils, over sedation for opioid reversal - MUST notify automobile sales consultant provider immediately after first dose, may give IM or SQ if no IV access +++ ondansetron (Zofran) injection 4 mg(Linked Group 3) 4 mg, IntraVENous, Every 6 hours PRN, nausea, vomiting, Starting on Sun11/23/23 at 0249, 1st Line. Give IV if patient is unable to take orally. If inadequate response within 60 minutes, proceed to next-line agent or contact provider if no further options ordered. ondansetron ODT (Zofran-ODT) disintegrating tablet 4 mg(Linked Group 3) 4 mg, Oral, Every 8 hours PRN, nausea, vomiting, Starting on Sun11/23/23 at 0249, 1st Line. If inadequate response within 60 minutes, proceed to next-line agent or contact provider if no further options ordered. Patient should allow tablet to dissolve on tongue. Do not remove from blister pack until just before administering. oxyCODONE (Roxicodone) immediate release tablet 5 mg 5 mg, Oral, Every 4 hours PRN, moderate pain (4-6), severe pain (7-10), Starting on Sun11/23/23 at 2105 0811 (Given - Provider: Kelsie Wren RN)1255 (Given - Provider: Kelsie Wren, MATHEUS)1704 (Given - Provider: Kelsie Wren RN) 0844 (Given - Provider: Charlotte Mccarty RN)1249 (Given - Provider: Charlotte Mccarty, RN) 0817 (Given - Provider: Abdi Abraham, RN)1453 (Given - Provider: Abdi Abraham, RN) polyethylene glycol (PEG) 3350 (Miralax) packet 17 g 17 g, Oral, Daily PRN, constipation, Starting on Sun11/23/23 at 0249, 1st line for treatment of constipation - give scheduled if no bowel movement in past 24 hours. sodium chloride 0.9% (NS) flush 10 mL 10 mL, IntraCATHeter, PRN, line care, before blood draws, before and after infusion or medication administration, Starting on Sun11/28/23 at 1344, Use 10 mL or larger syringe. stomahesive in petrolatum (ET Mix) Topical, PRN, dry skin, Starting on Sun11/25/23 at 1301 Linked Groups Order Group 1: Insulin Lispro (Humalog) injection 0-12 UnitsJump to med 0-12 Units, SubCUTAneous, 3 times daily with meals, First dose on Sun11/25/23 at 1315, Medium Dose Correction Algorithm Glucose: Dose: LESS than 139 No Insulin 140-199 2 Unit 200-249 4 Units 250-299 6 Units 300-349 8 Units 350-400 10 Units Above 400 12 Units And Insulin Lispro (Humalog) injection 0-12 UnitsJump to med 0-12 Units, SubCUTAneous, Nightly, First dose on Sun11/25/23 at 2100, If continuous tube feedings/TPN/NPO, give correction dose based on result, no reduction in dose. If eating or bolus tube feeding: Medium Dose Correction Algorithm Glucose: Dose: LESS than 139 No Insulin 140-199 2 Unit 200-249 4 Units 250-299 6 Units 300-349 8 Units 350-400 10 Units Above 400 12 Units Group 2: acetaminophen (Tylenol) tablet 650 mgJump to med 650 mg, Oral, Every 6 hours PRN, mild pain (1-3), fever, For temp greater than 100.4 F (38 C), Starting on Sun11/23/23 at 0249, Maximum dose of acetaminophen is 4000 mg from all sources in 24 hours. Or acetaminophen (Tylenol) suppository 650 mgJump to med 650 mg, Rectal, Every 6 hours PRN, mild pain (1-3), fever, For temp greater than 100.4 F (38 C), Starting on Sun11/23/23 at 0249, Administer if oral route cannot be used. Maximum dose of acetaminophen is 4000 mg from all sources in 24 hours. Group 3: ondansetron ODT (Zofran-ODT) disintegrating tablet 4 mgJump to med 4 mg, Oral, Every 8 hours PRN, nausea, vomiting, Starting on Sun11/23/23 at 0249, 1st Line. If inadequate response within 60 minutes, proceed to next-line agent or contact provider if no further options ordered. Patient should allow tablet to dissolve on tongue. Do not remove from blister pack until just before administering. Or ondansetron (Zofran) injection 4 mgJump to med 4 mg, IntraVENous, Every 6 hours PRN, nausea, vomiting, Starting on Sun11/23/23 at 0249, 1st Line. Give IV if patient is unable to take orally. If inadequate response within 60 minutes, proceed to next-line agent or contact provider if no further options ordered. Scheduled Medication Order 01/01/2024 01/02/2024 01/03/2024 acetaminophen (Tylenol) tablet 1,000 mg (COMPLETED) 1,000 mg, Oral, Once, On [place] 01/03/24 at 1000, For 1 dose, Preprocedure, Administer 60 minutes prior to surgery. 1126 (Given - Provid er: Yolanda Castillo RN) ciprofloxacin (Cipro) IVPB 400 mg (COMPLETED) 400 mg, IntraVENous, at 200 mL/hr, Administer over 60 Minutes, Hand Cutter to O.R., On [place] 01/03/24 at 1000, For 1 dose, Preprocedure, Administer 60 minutes prior to surgery. premix bag, Suspected Indication (Select all that apply): Surgical Prophylaxis, Authorizing ID Provider/Protocol: myself 1158 (Given - Provid er: ZINA Kim CRNA)1303 (Anesthesia Volume Adjustment - Provider: ZINA Kim CRNA) famotidine (Pepcid) tablet 20 mg (COMPLETED)(Linked Group 1) 20 mg, Oral, Once, On [place] 01/03/24 at 1000, For 1 dose, Preprocedure, IV or Oral 1126 (Given - Provid er: Yolanda Castillo RN) sodium chloride 0.9% (NS) flush 10 mL 10 mL, IntraVENous, Every 12 hours scheduled (2 times per day), First dose on [place] 01/03/24 at 1000, Preprocedure 1000 (Canceled Entry - Provider: Automatic Discharge Provider - Comment: Automatically canceled at discontinue of medication order) sodium chloride 0.9% (NS) flush 10 mL 10 mL, IntraVENous, Every 12 hours scheduled (2 times per day), First dose on [place] 01/03/24 at 2100, Recovery (only) sodium chloride 0.9% (NS) flush 5-40 mL 5-40 mL, IntraVENous, Every 12 hours, First dose on [place] 01/03/24 at 1000, Preprocedure, For Line Patency: Peripheral IV = 5 mL; Midline or Central Line = 10 mL/lumen. If following IV push medication, administer flush at same rate as the IV push. Flush volume is determined by type of infusion therapy being given. For non-viscous solutions use: Peripheral IV = 5 mL Midline or Central Line = 10 mL/lumen For viscous solutions (i.e. blood components, parenteral nutrition, contrast media, or after obtaining blood sample) use: Peripheral IV = 10 mL Midline or Central Line = 20 mL/lumen 1000 (Canceled Entry - Provider: Automatic Discharge Provider - Comment: Automatically canceled at discontinue of medication order) Continuous Medication Order 01/01/2024 01/02/2024 01/03/2024 lactated Ringer's (LR) infusion 50 mL/hr, IntraVENous, Continuous, Starting on [place] 01/03/24 at 1000, Preprocedure, Upon admission to sameday - please start iv if patient does not have iv access. Use 500ml NS for patients on dialysis. 1148 (New Bag - Prov ider: ZINA Kim CRNA)1248 (Stopped - Provider: ZINA Kim CRNA) lactated ringers infusion 125 mL/hr, IntraVENous, Continuous, Starting on [place] 01/03/24 at 1415, Recovery (only) 1415 (Canceled Entry - Provider: Automatic Discharge Provider - Comment: Automatically canceled at discontinue of medication order) PRN Medication Order 01/01/2024 01/02/2024 01/03/2024 ALPRAZolam (Xanax) disintegrating tablet 0.25 mg 0.25 mg, Oral, Once PRN, anxiety, Starting on [place] 01/03/24 at 0948, For 1 dose, Preprocedure, Please do not administer prior to obtaining consent and/or history and physical. dextrose 5 % infusion 100 mL/hr, IntraVENous, PRN, Blood sugar less than 70mg/dL, Starting on [place] 01/03/24 at 0948, Preprocedure, Start infusion following administration of dextrose 50% or glucagon. dextrose 5 % infusion 100 mL/hr, IntraVENous, PRN, Blood sugar less than 70mg/dL, Starting on [place] 01/03/24 at 1026, Preprocedure, Start infusion following administration of dextrose 50% or glucagon. dextrose 50 % solution 12.5 g 12.5 g, IntraVENous, PRN, low blood sugar, Blood glucose less than 70 mg/dL and patient NOT ALERT or NPO., Starting on [place] 01/03/24 at 0948, Preprocedure, If patient does not respond within 5 minutes, repeat dose x1. Start D5W at 100 mL/hour until ordering provider can be reached. Repeat blood glucose in 15 minutes. If blood glucose is less than 70 mg/dL, repeat treatment and recheck blood glucose in 15 minutes x2. If using Glucostabilizer, dose as instructed per system. dextrose 50 % solution 12.5 g 12.5 g, IntraVENous, PRN, low blood sugar, Blood glucose less than 70 mg/dL and patient NOT ALERT or NPO., Starting on [place] 01/03/24 at 1026, Preprocedure, If patient does not respond within 5 minutes, repeat dose x1. Start D5W at 100 mL/hour until ordering provider can be reached. Repeat blood glucose in 15 minutes. If blood glucose is less than 70 mg/dL, repeat treatment and recheck blood glucose in 15 minutes x2. If using Glucostabilizer, dose as instructed per system. diphenhydrAMINE (BENADryl) injection 12.5 mg 12.5 mg, IntraVENous, Once PRN, itching, Starting on [place] 01/03/24 at 1404, For 1 dose, Recovery (only) fentaNYL (Sublimaze) injection 25 mcg 25 mcg, IntraVENous, Every 5 min PRN, moderate pain (4-6), Starting on [place] 01/03/24 at 1404, For 3 doses, Recovery (only), Phase I and Phase II- Initial therapy for moderate pain (4-6). Restricted to a 90 minute time frame starting when the patient can verbally state their pain score. If after 2 doses the pain score does not decrease by more than one point, then call the provider. If oral meds are utilized, do not return to initial therapy medications. glucagon (human recombinant) injection 1 mg 1 mg, IntraMUSCular, PRN, low blood sugar, Blood glucose less than 70 mg/dL and patient NOT ALERT or NPO and does not have IV access., Starting on [place] 01/03/24 at 0948, Preprocedure, After administration, attempt intravenous access and start D5W at 100 mL/hr. Repeat blood glucose in 15 minutes x2 and notify provider. glucose oral gel 15 g 15 g, Oral, As needed, low blood sugar, Starting on [place] 01/03/24 at 0948, Preprocedure, If blood glucose less than 50 mg/dL and patient ALERT and NOT NPO, give 2 tubes glucose gel. If blood glucose less than 70 mg/dL and patient ALERT and NOT NPO, give 1 tube glucose gel. Repeat blood glucose in 15 minutes. If blood glucose is less than 70 mg/dL, repeat treatment and recheck blood glucose in 15 minutes x2 and notify provider. glucose oral gel 15 g 15 g, Oral, As needed, low blood sugar, Starting on [place] 01/03/24 at 1026, Preprocedure, If blood glucose less than 50 mg/dL and patient ALERT and NOT NPO, give 2 tubes glucose gel. If blood glucose less than 70 mg/dL and patient ALERT and NOT NPO, give 1 tube glucose gel. Repeat blood glucose in 15 minutes. If blood glucose is less than 70 mg/dL, repeat treatment and recheck blood glucose in 15 minutes x2 and notify provider. hydrALAZINE (Apresoline) injection 5 mg(Linked Group 2) 5 mg, IntraVENous, Every 15 min PRN, high blood pressure, for SBP greater than 160 mmHg for 2 consecutive measurements taken from different sites, Starting on [place] 01/03/24 at 1404, For 2 doses, Recovery (only), PRN for SBP > 160 for 2 consecutive measurements, and if one of the following conditions is met: 1) If IV labetolol is ineffective. 2) If HR is under 60. 3) If patient has heart block, COPD or asthma. If both labetalol and hydralazine ineffective, notify anesthesia provider. Insulin Lispro (Humalog) injection 0-12 Units 0-12 Units, SubCUTAneous, PRN, high blood sugar, Surgery patient, Starting on [place] 01/03/24 at 0948, For 3 doses, Preprocedure, Corrective Low Dose Algorithm Glucose: Dose: 70-180 No Insulin 181-240 4 Unit 241-300 6 Units 301-350 8 Units 351-400 10 Units Over 400 12 Units and notify physician 1036 (Given - Provid er: Mikey Whitt RN)1237 (Given - Provider: Francisco Kirkland APRN - SON[facility]I) labetalol (Normodyne,Trandate) injection 5 mg(Linked Group 2) 5 mg, IntraVENous, Every 10 min PRN, high blood pressure, for SBP greater than 160 mmHg for 2 consecutive measurements taken from different sites., Starting on [place] 01/03/24 at 1404, For 2 doses, Recovery (only), PRN for SBP >160 for 2 consecutive measurements, if HR is 60 or greater. If beta dyan is contraindicated (HR less than 60, heart block, COPD or asthma) use hydralazine IV order. ondansetron (Zofran) injection 4 mg 4 mg, IntraVENous, Once PRN, nausea, Starting on [place] 01/03/24 at 1404, For 1 dose, Recovery (only), Initial antiemetic therapy. oxyCODONE (Roxicodone) immediate release tablet 5 mg 5 mg, Oral, PRN, moderate pain (4-6), Starting on [place] 01/03/24 at 1404, For 1 dose, Recovery (only), Administer when patient is able to tolerate PO meds sodium chloride 0.9 % bolus 500 mL 500 mL, IntraVENous, at 1,000 mL/hr, Administer over 0.5 Hours, PRN, Anti-nausea, Starting on [place] 01/03/24 at 1404, Recovery (only), Indications: Anti-nausea sodium chloride 0.9 % infusion 5-250 mL/hr, IntraVENous, PRN, if patient receiving piggyback infusions and maintenance fluids are not ordered OR KVO fluids to protect IV site / prevent frequent line interruptions / long duration, Starting on [place] 01/03/24 at 0948, Preprocedure, For piggyback infusion, administer at same rate as piggyback for a total of 25 mL. Enter 25 mL into dose field and piggyback rate into rate field of order. If piggyback is infusing at a rate less than 100 mL/hr, enter 25 mL into dose field and 100 mL/hr into rate field of order. For KVO fluids, enter rate of 20 mL/hr or less into rate field of order. sodium chloride 0.9 % infusion 5-250 mL/hr, IntraVENous, PRN, if patient receiving piggyback infusions and maintenance fluids are not ordered OR KVO fluids to protect IV site / prevent frequent line interruptions/ long duration, Starting on [place] 01/03/24 at 0948, Preprocedure, For piggyback infusion, administer at same rate as piggyback for a total of 25 mL. Enter 25 mL into dose field and piggyback rate into rate field of order. If piggyback is infusing at a rate less than 100 mL/hr, enter 25 mL into dose field and 100 mL/hr into rate field of order. For KVO fluids, enter rate of 20 mL/hr or less into rate field of order. sodium chloride 0.9 % infusion 5-250 mL/hr, IntraVENous, PRN, if patient receiving piggyback infusions and maintenance fluids are not ordered OR KVO fluids to protect IV site / prevent frequent line interruptions/ long duration, Starting on [place] 01/03/24 at 1404, Recovery (only), For piggyback infusion, administer at same rate as piggyback for a total of 25 mL. Enter 25 mL into dose field and piggyback rate into rate field of order. If piggyback is infusing at a rate less than 100 mL/hr, enter 25 mL into dose field and 100 mL/hr into rate field of order. For KVO fluids, enter rate of 20 mL/hr or less into rate field of order. sodium chloride 0.9 % irrigation solution (CANCELED) As needed, Starting on [place] 01/03/24 at 1227, Intraprocedure 1227 (Given - Provid er: Bashir Vásquez MD) sodium chloride 0.9% (NS) flush 10 mL 10 mL, IntraVENous, PRN, line care, Starting on [place] 01/03/24 at 0948, Preprocedure, After every IV line use sodium chloride 0.9% (NS) flush 10 mL 10 mL, IntraVENous, PRN, line care, Starting on [place] 01/03/24 at 1404, Recovery (only), After every IV line use sodium chloride 0.9% (NS) flush 5-40 mL 5-40 mL, IntraVENous, PRN, line care, After every IV line use, Starting on [place] 01/03/24 at 0948, Preprocedure, For Line Patency: Peripheral IV = 5 mL; Midline or Central Line = 10 mL/lumen. If following IV push medication, administer flush at same rate as the IV push. Flush volume is determined by type of infusion therapy being given. For non-viscous solutions use: Peripheral IV = 5 mL Midline or Central Line = 10 mL/lumen For viscous solutions (i.e. blood components, parenteral nutrition, contrast media, or after obtaining blood sample) use: Peripheral IV = 10 mL Midline or Central Line = 20 mL/lumen sterile water irrigation solution (CANCELED) As needed, Starting on [place] 01/03/24 at 1227, Intraprocedure 1227 (Given - Provid er: Bashir Vásquez MD) Linked Groups Order Group 1: famotidine (Pepcid) tablet 20 mg (COMPLETED)Jump to med 20 mg, Oral, Once, On [place] 01/03/24 at 1000, For 1 dose, Preprocedure, IV or Oral Or famotidine (Pepcid) 20 mg in sodium chloride (PF) 0.9 % 10 mL injection (COMPLETED) 20 mg, IntraVENous, Administer over 2 Minutes, Once, On [place] 01/03/24 at 1000, For 1 dose, Preprocedure, IV or Oral Group 2: labetalol (Normodyne,Trandate) injection 5 mgJump to med 5 mg, IntraVENous, Every 10 min PRN, high blood pressure, for SBP greater than 160 mmHg for 2 consecutive measurements taken from different sites., Starting on [place] 01/03/24 at 1404, For 2 doses, Recovery (only), PRN for SBP >160 for 2 consecutive measurements, if HR is 60 or greater. If beta dyan is contraindicated (HR less than 60, heart block, COPD or asthma) use hydralazine IV order. Or hydrALAZINE (Apresoline) injection 5 mgJump to med 5 mg, IntraVENous, Every 15 min PRN, high blood pressure, for SBP greater than 160 mmHg for 2 consecutive measurements taken from different sites, Starting on [place] 01/03/24 at 1404, For 2 doses, Recovery (only), PRN for SBP > 160 for 2 consecutive measurements, and if one of the following conditions is met: 1) If IV labetolol is ineffective. 2) If HR is under 60. 3) If patient has heart block, COPD or asthma. If both labetalol and hydralazine ineffective, notify anesthesia provider. Scheduled Medication Order 06/14/2022 06/15/2022 06/16/2022 apixaban (Eliquis) tablet 5 mg 5 mg, Oral, 2 times daily, First dose on Sun06/09/22 at 2100, For 7 days, Anticoagulant 0801 (Given - Provider: Elisa Torres RN)2010 (Given - Provider: Adwoa Do RN - Comment: Given by RAFA Aleman) 900 (Given - Provider: Lauro Alexander, MATHEUS)2001 (Given - Provider: Annette Barnes RN) 905 (Given - Provider: Nany Salazar, MATHEUS) atorvastatin (Lipitor) tablet 20 mg 20 mg, Oral, Daily, First dose on Sun06/09/22 at 1930 0801 (Given - Provider: Elisa Torres RN) 900 (Given - Provider: Lauro Alexander RN) 905 (Given - Provider: Nany Salazar, MATHEUS) baclofen (Lioresal) tablet 5 mg 5 mg, Oral, 2 times daily, First dose on Sun06/09/22 at 2100 0806 (Given - Provider: Elisa Torres RN)2010 (Given - Provider: Adwoa Do RN - Comment: Given by RAFA Aleman) 900 (Given - Provider: Lauro Alexander RN)2001 (Given - Provider: Annette Barnes RN) 905 (Given - Provider: Nany Salazar, MATHEUS) ertapenem (INVanz) 1,000 mg in sodium chloride 0.9 % 50 mL IVPB Mini-Bag Plus 1,000 mg, IntraVENous, at 100 mL/hr, Administer over 30 Minutes, Every 24 hours, First dose on Sun06/12/22 at 2000, Mini-Bag Plus bag, Suspected Indication (Select all that apply): Bloodstream Infection, Urinary Tract Infection 2010 (Given - Provider: Adwoa Do RN - Comment: Given by RAFA Aleman) 2001 (Given - Provider: Annette Barnes RN) gabapentin (Neurontin) capsule 100 mg 100 mg, Oral, 2 times daily, First dose on Sun06/09/22 at 2100 0900 (Dose Auto Held)2100 (Dose Auto Held) 0900 (Dose Auto Held)2099 (Dose Auto Held) 09 (Dose Auto Held)194 (Unheld by provider - Provider: Automatic Discharge Provider) heparin flush injection 100 Units 100 Units, IntraCATHeter, Every 12 hours, First dose on Sun06/16/22 at 1745, Line Care. Use 10 mL or larger syringe. 174 (Canceled Entry - Provider: Automatic Discharge Provider - Comment: Automatically canceled at discontinue of medication order) insulin glargine (Lantus) injection 10 Units 10 Units, SubCUTAneous, Nightly, First dose on Sun06/09/22 at 2100 210 (Given - Provider: Annette Barnes RN) 2021 (Given - Provider: Annette Barnes RN) Insulin Lispro (Humalog) injection 0-18 Units (CANCELED) 0-18 Units, SubCUTAneous, Every 6 hours, First dose on Sun06/10/22 at 0730, High Dose Correction Algorithm Glucose: Dose: LESS than 139 No Insulin 140-199 3 Unit 200-249 6 Units 250-299 9 Units 300-349 12 Units 350-400 15 Units Above 400 18 Units 0008 (Given - Provider: Emilia August RN)0500 (Not Given - Provider: Emilia August RN - Reason: Order parameters not met) Insulin Lispro (Humalog) injection 0-18 Units 0-18 Units, SubCUTAneous, 4 times daily before meals & nightly, First dose (after last modification) on Sun06/14/22 at 1100, High Dose Correction Algorithm Glucose: Dose: LESS than 139 No Insulin 140-199 3 Unit 200-249 6 Units 250-299 9 Units 300-349 12 Units 350-400 15 Units Above 400 18 Units 1100 (Not Given - Provider: Elisa Torres RN - Reason: Order parameters not met)181 (Given - Provider: Elisa Torres RN)210 (Given - Provider: Annette Barnes RN) 0618 (Given - Provider: Annette Barnes RN - Comment: bs 193)1217 (Given - Provider: Lauro Alexander RN)1809 (Given - Provider: Lauro Alexander RN)202 (Given - Provider: Annette Barnes RN - Comment: [id number]) 0614 (Given - Provider: Annette Barnes RN - Comment: bs 193)1218 (Given - Provider: Nany Salazar RN)1700 (Canceled Entry - Provider: Automatic Discharge Provider - Comment: Automatically canceled at discontinue of medication order) lisinopril tablet 10 mg (CANCELED) 10 mg, Oral, Daily, First dose on Sun06/13/22 at 1130 0801 (Given - Provider: Elisa Torres RN) lisinopril tablet 10 mg (COMPLETED) 10 mg, Oral, Once, On Sun06/14/22 at 1400, For 1 dose 1449 (Given - Provider: Elisa Torres RN) lisinopril tablet 10 mg 10 mg, Oral, Daily, First dose (after last modification) on Sun06/16/22 at 0900 0906 (Given - Provider: Nany Salazar RN) lisinopril tablet 20 mg (CANCELED) 20 mg, Oral, Daily, First dose (after last modification) on Sun06/15/22 at 0900 0901 (Given - Provider: Lauro Alexander RN) pantoprazole (ProtoNix) EC tablet 40 mg(Linked Group 1) 40 mg, Oral, Nightly, First dose on Sun06/09/22 at 2100, Do not crush, chew, or split. 2010 (Given - Provider: Adwoa Do RN - Comment: Given by RAFA Aleman) 2001 (Given - Provider: Annette Barnes RN) pantoprazole (ProtoNix) injection 40 mg(Linked Group 1) 40 mg, IntraVENous, Administer over 2 Minutes, Nightly, First dose on Sun06/09/22 at 2100, Give only if unable to tolerate po. 2010 (See Alternative - Provider: Adwoa Do RN) 2001 (See Alternative - Provider: Annette Barnes RN) sodium chloride 0.9% (NS) flush 10 mL 10 mL, IntraCATHeter, Every 12 hours, First dose on Sun06/16/22 at 1745, Line Care. Use 10 mL or larger syringe. 1745 (Canceled Entry - Provider: Automatic Discharge Provider - Comment: Automatically canceled at discontinue of medication order) sodium chloride 0.9% (NS) flush 5-40 mL 5-40 mL, IntraVENous, Every 12 hours scheduled (2 times per day), First dose on Sun06/09/22 at 2100, For Line Patency: Peripheral IV = 5 mL; Midline or Central Line = 10 mL/lumen. If following IV push medication, administer flush at same rate as the IV push. Flush volume is determined by type of infusion therapy being given. For non-viscous solutions use: Peripheral IV = 5 mL Midline or Central Line = 10 mL/lumen For viscous solutions (i.e. blood components, parenteral nutrition, contrast media, or after obtaining blood sample) use: Peripheral IV = 10 mL Midline or Central Line = 20 mL/lumen 0800 (Given - Provider: Elisa Torres, MATHEUS)2010 (Given - Provider: Adwoa Do, MATHEUS - Comment: Given by RAFA Aleman) 901 (Given - Provider: Lauro Alexander, MATHEUS)2023 (Given - Provider: Annette Barnes, MATHEUS) 09 (Given - Provider: Nany Salazar, MATHEUS) PRN Medication Order 06/14/2022 06/15/2022 06/16/2022 dextrose 5 % infusion 100 mL/hr, IntraVENous, PRN, Blood sugar less than 70mg/dL, Starting on Sun06/09/22 at 1602, Start infusion following administration of dextrose 50% or glucagon. dextrose 50 % solution 12.5 g 12.5 g, IntraVENous, PRN, low blood sugar, Blood glucose less than 70 mg/dL and patient NOT ALERT or NPO., Starting on Sun06/09/22 at 1602, If patient does not respond within 5 minutes, repeat dose x1. Start D5W at 100 mL/hour until ordering provider can be reached. Repeat blood glucose in 15 minutes. If blood glucose is less than 70 mg/dL, repeat treatment and recheck blood glucose in 15 minutes x2. If using Glucostabilizer, dose as instructed per system. glucagon (human recombinant) injection 1 mg 1 mg, IntraMUSCular, PRN, low blood sugar, Blood glucose less than 70 mg/dL and patient NOT ALERT or NPO and does not have IV access., Starting on Sun06/09/22 at 1602, After administration, attempt intravenous access and start D5W at 100 mL/hr. Repeat blood glucose in 15 minutes x2 and notify provider. glucose oral gel 15 g 15 g, Oral, As needed, low blood sugar, Starting on Sun06/09/22 at 1602, If blood glucose less than 50 mg/dL and patient ALERT and NOT NPO, give 2 tubes glucose gel. If blood glucose less than 70 mg/dL and patient ALERT and NOT NPO, give 1 tube glucose gel. Repeat blood glucose in 15 minutes. If blood glucose is less than 70 mg/dL, repeat treatment and recheck blood glucose in 15 minutes x2 and notify provider. heparin flush injection 100 Units 100 Units, IntraCATHeter, PRN, line care, after infusions or after blood draws, Starting on Sun06/16/22 at 1732, Use 10 mL or larger syringe. lidocaine PF (Xylocaine) 2 % injection (COMPLETED) Infiltration, As needed, Starting on Sun06/15/22 at 1409, Intraprocedure 1409 (Given - Provider: Ramone Ellington MD - Comment: Right lower neck) lidocaine-EPINEPHrine (Xylocaine W/EPI) 2 %-1:[id number] injection (COMPLETED) As needed, Starting on Sun06/15/22 at 1414, Intraprocedure 1414 (Given - Provider: Ramone Ellington MD - Comment: Right upper chest) ondansetron (Zofran) injection 4 mg 4 mg, IntraVENous, Every 6 hours PRN, nausea, vomiting, Starting on Sun06/09/22 at 1741 sodium chloride 0.9 % infusion 5-250 mL/hr, IntraVENous, PRN, if patient receiving piggyback infusions and maintenance fluids are not ordered OR KVO fluids to protect IV site / prevent frequent line interruptions/ long duration, Starting on Sun06/09/22 at 1602, For piggyback infusion, administer at same rate as piggyback for a total of 25 mL. Enter 25 mL into dose field and piggyback rate into rate field of order. If piggyback is infusing at a rate less than 100 mL/hr, enter 25 mL into dose field and 100 mL/hr into rate field of order. For KVO fluids, enter rate of 20 mL/hr or less into rate field of order. sodium chloride 0.9% (NS) flush 10 mL 10 mL, IntraCATHeter, PRN, line care, before and after blood draws, infusion or medication administration, Starting on Sun06/16/22 at 1732, Use 10 mL or larger syringe. sodium chloride 0.9% (NS) flush 5-40 mL 5-40 mL, IntraVENous, PRN, line care, Starting on Sun06/09/22 at 1602, For Line Patency: Peripheral IV = 5 mL; Midline or Central Line = 10 mL/lumen. If following IV push medication, administer flush at same rate as the IV push. Flush volume is determined by type of infusion therapy being given. For non-viscous solutions use: Peripheral IV = 5 mL Midline or Central Line = 10 mL/lumen For viscous solutions (i.e. blood components, parenteral nutrition, contrast media, or after obtaining blood sample) use: Peripheral IV = 10 mL Midline or Central Line = 20 mL/lumen Linked Groups Order Group 1: pantoprazole (ProtoNix) EC tablet 40 mgJump to med 40 mg, Oral, Nightly, First dose on Sun06/09/22 at 2100
Do not crush, chew, or split.
Or pantoprazole (ProtoNix) injection 40 mgJump to med 40 mg, IntraVENous, Administer over 2 Minutes, Nightly, First dose on Sun06/09/22 at 2100
Give only if unable to tolerate po.
Scheduled Medication Order 10/16/2024 10/17/2024 10/18/2024 apixaban (Eliquis) tablet 5 mg 5 mg, Oral, 2 times daily, First dose on Sun10/09/24 at 2100, Anticoagulant 0827 (Given - Provider: Luis Asher RN)215 (Given - Provider: Annette Obregon RN) 0914 (Given - Provider: Luis Asher RN)2039 (Given - Provider: Reyna hSer RN) 09 (Given - Provider: Selvin Morris RN) chlorhexidine (Hibiclens) 4 % solution Topical, Daily, First dose on Sun10/10/24 at 1400 1347 (Not Given - Provider: Luis Asher RN - Reason: Patient/family refused) 1353 (Not Given - Provider: Luis Asher RN - Reason: Patient/family refused) donepezil (Aricept) tablet 10 mg 10 mg, Oral, Nightly, First dose on [place] 10/09/24 at 2100 2151 (Given - Provider: Annette Obregon RN) 2039 (Given - Provider: Reyna Sher RN) gabapentin (Neurontin) capsule 300 mg 300 mg, Oral, 3 times daily, First dose on [place] 10/09/24 at 2100 0827 (Given - Provider: Luis Asher RN)1347 (Given - Provider: Luis Asher RN)2150 (Given - Provider: Annette Obregon RN) 0914 (Given - Provider: Luis Asher RN)1408 (Given - Provider: Luis Asher RN)2038 (Given - Provider: Reyna Sher RN) 0906 (Given - Provider: Selvin Morris RN) insulin glargine (Lantus) injection 30 Units 30 Units, SubCUTAneous, Nightly, First dose (after last modification) on 10/11/24 at 2100 2151 (Given - Provider: Annette Obregon RN) 2046 (Given - Provider: Reyna Sher RN) Insulin Lispro (Humalog) injection 0-12 Units(Linked Group 1) 0-12 Units, SubCUTAneous, 3 times daily with meals, First dose on 10/11/24 at 0800, Medium Dose Correction Algorithm Glucose: Dose: LESS than 150 No Insulin 150-199 2 Units 200-249 4 Units 250-299 6 Units 300-349 8 Units 350-400 10 Units Above 400 12 Units 0942 (Given - Provider: Luis Asher RN - Comment: abd)1147 (Given - Provider: Luis Asher RN - Comment: abd)1637 (Given - Provider: Luis Asher RN - Comment: abd) 0905 (Not Given - Provider: Luis Asher RN - Reason: Other - Comment: bs 135)1247 (Given - Provider: Luis Asher RN - Comment: abd)1745 (Given - Provider: Luis Asher RN - Comment: abd) 0905 (Given - Provider: Selvin Morris RN)1200 (Canceled Entry - Provider: Automatic Discharge Provider - Comment: Automatically canceled at discontinue of medication order) Insulin Lispro (Humalog) injection 0-12 Units(Linked Group 1) 0-12 Units, SubCUTAneous, Nightly, First dose on Sun10/10/24 at 2115, If eating or bolus tube feeding: Medium Dose Correction Algorithm Glucose: Dose: LESS than 150 No Insulin 150-199 2 Units 200-249 4 Units 250-299 6 Units 300-349 8 Units 350-400 10 Units Above 400 12 Units 2151 (Given - Provider: Annette Obregon RN) 2133 (Given - Provider: Reyna Sher, MATHEUS) Insulin Lispro (Humalog) injection 5 Units 5 Units, SubCUTAneous, 3 times daily with meals, First dose on Sun10/09/24 at 1820 0942 (Given - Provider: Luis Asher RN - Comment: abd)1146 (Given - Provider: Luis Asher RN - Comment: abd)1637 (Given - Provider: Luis Asher RN - Comment: abd) 0913 (Given - Provider: Luis Asher RN - Comment: abd)1248 (Given - Provider: Luis Asher RN - Comment: abd)1745 (Given - Provider: Luis Asher RN - Comment: abd) 0906 (Given - Provider: Selvin Morris RN)1200 (Canceled Entry - Provider: Automatic Discharge Provider - Comment: Automatically canceled at discontinue of medication order) melatonin tablet 10 mg 10 mg, Oral, Nightly, First dose (after last modification) on Sun10/10/24 at 2100 2151 (Given - Provider: Annette Obregon RN) 2039 (Given - Provider: Reyna Sher, MATHEUS) miconazole (Micotin) 2 % powder Topical, 2 times daily, First dose on Sun10/09/24 at 2100 0229 (Not Given - Provider: Reyna Sher, RN - Reason: Patient/family refused)0828 (Not Given - Provider: Luis Asher RN - Reason: Patient/family refused)215 (Given - Provider: Annette Obregon RN) 09 (Not Given - Provider: Luis Asher RN - Reason: Patient/family refused)2114 (Not Given - Provider: Reyna Sher RN - Reason: Patient/family refused) 0900 (Canceled Entry - Provider: Automatic Discharge Provider - Comment: Automatically canceled at discontinue of medication order) pantoprazole (ProtoNix) 40 mg in sodium chloride (PF) 0.9 % 10 mL injection 40 mg, IntraVENous, Administer over 2 Minutes, Every morning, First dose on Sun10/10/24 at 0900, Give if unable to take by mouth or feeding tube. Reconstitute 40 mg vial with 10 ml NS. Vial expires 2 hrs after reconstitution. 08 (Given - Provider: Luis Asher RN) 0915 (Given - Provider: Luis Asher RN) 09 (Given - Provider: Selvin Morris RN) sodium chloride 0.9% (NS) flush 5-40 mL 5-40 mL, IntraCATHeter, Every 8 hours, First dose on Sun10/09/24 at 2245, For Line Patency: Peripheral IV = 5 mL; Midline or Central Line = 10 mL/lumen. If following IV push medication, administer flush at same rate as the IV push. Flush volume is determined by type of infusion therapy being given. For non-viscous solutions use: Peripheral IV = 5 mL Midline or Central Line = 10 mL/lumen For viscous solutions (i.e. blood components, parenteral nutrition, contrast media, or after obtaining blood sample) use: Peripheral IV = 10 mL Midline or Central Line = 20 mL/lumen 1347 (Given - Provider: Luis Asher RN)2217 (Given - Provider: Annette Obregon RN) 0702 (Given - Provider: Annette Obregon RN)1409 (Given - Provider: Luis Asher RN)2037 (Given - Provider: Reyna Sher, MATHEUS)2115 (Not Given - Provider: Reyna Sher, MATHEUS - Reason: Other - Comment: duplicate) 0414 (Given - Provider: Reyna Sher, MATHEUS)0645 (Canceled Entry - Provider: Automatic Discharge Provider - Comment: Automatically canceled at discontinue of medication order) triamcinolone (Kenalog) 0.1 % ointment Topical, 2 times daily, First dose on Sun10/15/24 at 0900, For 7 days, Bilateral lower extremities: Venous stasis dermatitis, lymphedema -Apply Triamcinolone 0.1% ointment BID x 7 days to areas of erythema 0828 (Not Given - Provider: Luis Asher RN - Reason: Patient/family refused)2153 (Not Given - Provider: Annette Obregon RN - Reason: Patient/family refused) 09 (Not Given - Provider: Luis Asher RN - Reason: Patient/family refused)2042 (Given - Provider: Reyna Sher RN) 0900 (Canceled Entry - Provider: Automatic Discharge Provider - Comment: Automatically canceled at discontinue of medication order) PRN Medication Order 10/16/2024 10/17/2024 10/18/2024 dextrose 5 % infusion 100 mL/hr, IntraVENous, PRN, Blood sugar less than 70mg/dL, Starting on Sun10/09/24 at 1815, Start infusion following administration of dextrose 50% or glucagon. dextrose 50 % solution 12.5 g 12.5 g, IntraVENous, PRN, low blood sugar, Blood glucose less than 70 mg/dL and patient NOT ALERT or NPO., Starting on Sun10/09/24 at 1815, If patient does not respond within 5 minutes, repeat dose x1. Start D5W at 100 mL/hour until ordering provider can be reached. Repeat blood glucose in 15 minutes. If blood glucose is less than 70 mg/dL, repeat treatment and recheck blood glucose in 15 minutes x2. If using Glucostabilizer, dose as instructed per system. glucagon (human recombinant) injection 1 mg 1 mg, IntraMUSCular, PRN, low blood sugar, Blood glucose less than 70 mg/dL and patient NOT ALERT or NPO and does not have IV access., Starting on Sun10/09/24 at 1815, After administration, attempt intravenous access and start D5W at 100 mL/hr. Repeat blood glucose in 15 minutes x2 and notify provider. glucose oral gel 15 g 15 g, Oral, As needed, low blood sugar, Starting on Sun10/09/24 at 1815, If blood glucose less than 50 mg/dL and patient ALERT and NOT NPO, give 2 tubes glucose gel. If blood glucose less than 70 mg/dL and patient ALERT and NOT NPO, give 1 tube glucose gel. Repeat blood glucose in 15 minutes. If blood glucose is less than 70 mg/dL, repeat treatment and recheck blood glucose in 15 minutes x2 and notify provider. magnesium sulfate IVPB 4,000 mg(Linked Group 2) 4,000 mg, IntraVENous, at 25 mL/hr, Administer over 4 Hours, As needed, Per Magnesium Replacement Protocol, Starting on [place] 10/09/24 at 1813, Mg Lab Replacement Action 1.4-1.6 2 gram IVPB x 1 doses 1.0-1.3 4 gram IVPB x 1 doses Less than 1.0 CALL PHYSICIAN and 4 gram IVPB x 1 doses Infuse at 1 gram/hr. Repeat Mag level next AM. Not for use in Patients with CrCl less than 30 mL/min. magnesium sulfate IVPB premix 2,000 mg(Linked Group 2) 2,000 mg, IntraVENous, at 25 mL/hr, Administer over 2 Hours, As needed, Per Magnesium Replacement Protocol, Starting on [place] 10/09/24 at 1813, Mg Lab Replacement Action 1.4-1.6 2 gram IVPB x 1 doses 1.0-1.3 4 gram IVPB x 1 doses Less than 1.0 CALL PHYSICIAN and 4 gram IVPB x 1 doses Infuse at 1 gram/hr. Repeat Mag level next AM. Not for use in Patients with CrCl less than 30 mL/min. naloxone (Narcan) injection 0.4 mg 0.4 mg, IntraVENous, Every 5 min PRN, opioid reversal, respiratory depression, Starting on [place] 10/09/24 at 1817, +++ For RR <10, pinpoint pupils, over sedation for opioid reversal - MUST notify automobile sales consultant provider immediately after first dose, may give IM or SQ if no IV access +++ ondansetron (Zofran) injection 4 mg(Linked Group 3) 4 mg, IntraVENous, Every 6 hours PRN, nausea, vomiting, Starting on [place] 10/09/24 at 1807, 1st Line. Give IV if patient is unable to take orally. If inadequate response within 60 minutes, proceed to next-line agent or contact provider if no further options ordered. ondansetron ODT (Zofran-ODT) disintegrating tablet 4 mg(Linked Group 3) 4 mg, Oral, Every 8 hours PRN, nausea, vomiting, Starting on [place] 10/09/24 at 1807, 1st Line. If inadequate response within 60 minutes, proceed to next-line agent or contact provider if no further options ordered. Patient should allow tablet to dissolve on tongue. Do not remove from blister pack until just before administering. oxyCODONE (Roxicodone) immediate release tablet 5 mg 5 mg, Oral, Every 4 hours PRN, severe pain (7-10), Starting on Sun10/13/24 at 1401 0827 (Given - Provider: Luis Asher, RN)2151 (Given - Provider: Annette Obregon, RN) 0156 (Given - Provider: Annette Obregon, RN)0914 (Given - Provider: Luis Asher RN)2053 (Given - Provider: Reyna Sher, MATHEUS) 0922 (Given - Provider: Selvin Morris, MATHEUS) potassium chloride (Klor-Con) packet 40 mEq(Linked Group 4) 40 mEq, Oral, PRN, Per Potassium Replacement Protocol, Starting on [place] 10/09/24 at 1813, Administer as alternative if patient unable to tolerate oral tablet. K Lab Replacement Action 3.1 to 3.5 40 mEq ORAL x 1 Under 3.1 Refer to IV replacement protocol Recheck K level in AM. Protocol not for use in patients with CrCl less than 30 mL/min. Dissolve each packet in 4 ounces of water = 5 mEq per 1 oz fluid. potassium chloride 40 mEq in sodium chloride 0.9 % 500 mL IVPB(Linked Group 4) 40 mEq, IntraVENous, at 130 mL/hr, Administer over 4 Hours, PRN, Per Potassium Replacement Protocol, Starting on [place] 10/09/24 at 1813, For Peripheral Line Use: K Lab Replacement Action 2.7 to 3.0 40 mEq x 1 dose Under 2.7 CALL PROVIDER and administer 40 mEq x 1 dose Infuse at 10 mEq/hr. Repeat Potassium lab 1 hour after administration. Protocol not for use in patients with CrCl less than 30 mL/min. potassium chloride CR (Klor-Con M10) ER tablet 40 mEq(Linked Group 4) 40 mEq, Oral, PRN, Per Potassium Replacement Protocol, Starting on [place] 10/09/24 at 1813, May give linked alternative if patient unable to tolerate oral formulation. K Lab Replacement Action 3.1 to 3.5 40 mEq ORAL x 1 Under 3.1 Refer to IV replacement protocol Recheck K level in AM. Protocol not for use in patients with CrCl less than 30 mL/min. Do not crush or chew. senna-docusate sodium (Senokot-S) 8.6-50 MG tablet 2 tablet 2 tablet, Oral, Daily PRN, constipation, Starting on Sun10/10/24 at 1511 sodium chloride 0.9% (NS) flush 5-40 mL 5-40 mL, IntraVENous, PRN, line care, before and after blood draws, infusion, or medication administration, Starting on Sun10/09/24 at 2236, For Line Patency: Peripheral IV = 5 mL; Midline or Central Line = 10 mL/lumen. If following IV push medication, administer flush at same rate as the IV push. Flush volume is determined by type of infusion therapy being given. For non-viscous solutions use: Peripheral IV = 5 mL Midline or Central Line = 10 mL/lumen For viscous solutions (i.e. blood components, parenteral nutrition, contrast media, or after obtaining blood sample) use: Peripheral IV = 10 mL Midline or Central Line = 20 mL/lumen sodium phosphates 10 mmol in dextrose 5 % 100 mL IVPB(Linked Group 5) 10 mmol, IntraVENous, at 66.7 mL/hr, Administer over 90 Minutes, PRN, Per Phosphate IV Replacement Protocol, Starting on Sun10/09/24 at 1813, Phos level Replacement Action 2.3 to 2.7 mg/dL 10 mmol IVPB over 1.5 hours 1.5 to 2.2 mg/dL 15 mmol IVPB over 2 hours LESS than 1.5 mg/dL 20 mmol IVPB over 3 hours sodium phosphates 15 mmol in dextrose 5 % 250 mL IVPB(Linked Group 5) 15 mmol, IntraVENous, at 125 mL/hr, Administer over 120 Minutes, PRN, Per Phosphate IV Replacement Protocol, Starting on Sun10/09/24 at 1813, Phos level Replacement Action 2.3 to 2.7 mg/dL 10 mmol IVPB over 1.5 hours 1.5 to 2.2 mg/dL 15 mmol IVPB over 2 hours LESS than 1.5 mg/dL 20 mmol IVPB over 3 hours sodium phosphates 20 mmol in dextrose 5 % 250 mL IVPB(Linked Group 5) 20 mmol, IntraVENous, at 83.3 mL/hr, Administer over 180 Minutes, PRN, Per Phosphate IV Replacement Protocol, Starting on Sun10/09/24 at 1813, Phos level Replacement Action 2.3 to 2.7 mg/dL 10 mmol IVPB over 1.5 hours 1.5 to 2.2 mg/dL 15 mmol IVPB over 2 hours LESS than 1.5 mg/dL 20 mmol IVPB over 3 hours Linked Groups Order Group 1: Insulin Lispro (Humalog) injection 0-12 UnitsJump to med 0-12 Units, SubCUTAneous, 3 times daily with meals, First dose on Sun10/11/24 at 0800, Medium Dose Correction Algorithm Glucose: Dose: LESS than 150 No Insulin 150-199 2 Units 200-249 4 Units 250-299 6 Units 300-349 8 Units 350-400 10 Units Above 400 12 Units And Insulin Lispro (Humalog) injection 0-12 UnitsJump to med 0-12 Units, SubCUTAneous, Nightly, First dose on Sun10/10/24 at 2115, If eating or bolus tube feeding: Medium Dose Correction Algorithm Glucose: Dose: LESS than 150 No Insulin 150-199 2 Units 200-249 4 Units 250-299 6 Units 300-349 8 Units 350- 400 10 Units Above 400 12 Units Group 2: magnesium sulfate IVPB premix 2,000 mgJump to med 2,000 mg, IntraVENous, at 25 mL/hr, Administer over 2 Hours, As needed, Per Magnesium Replacement Protocol, Starting on Sun10/09/24 at 1813, Mg Lab Replacement Action 1.4-1.6 2 gram IVPB x 1 doses 1.0-1.3 4 gram IVPB x 1 doses Less than 1.0 CALL PHYSICIAN and 4 gram IVPB x 1 doses Infuse at 1 gram/hr. Repeat Mag level next AM. Not for use in Patients with CrCl less than 30 mL/min. Or magnesium sulfate IVPB 4,000 mgJump to med 4,000 mg, IntraVENous, at 25 mL/hr, Administer over 4 Hours, As needed, Per Magnesium Replacement Protocol, Starting on Sun10/09/24 at 1813, Mg Lab Replacement Action 1.4-1.6 2 gram IVPB x 1 doses 1.0-1.3 4 gram IVPB x 1 doses Less than 1.0 CALL PHYSICIAN and 4 gram IVPB x 1 doses Infuse at 1 gram/hr. Repeat Mag level next AM. Not for use in Patients with CrCl less than 30 mL/min. Group 3: ondansetron ODT (Zofran-ODT) disintegrating tablet 4 mgJump to med 4 mg, Oral, Every 8 hours PRN, nausea, vomiting, Starting on [place] 10/09/24 at 1807, 1st Line. If inadequate response within 60 minutes, proceed to next-line agent or contact provider if no further options ordered. Patient should allow tablet to dissolve on tongue. Do not remove from blister pack until just before administering. Or ondansetron (Zofran) injection 4 mgJump to med 4 mg, IntraVENous, Every 6 hours PRN, nausea, vomiting, Starting on [place] 10/09/24 at 1807, 1st Line. Give IV if patient is unable to take orally. If inadequate response within 60 minutes, proceed to next-line agent or contact provider if no further options ordered. Group 4: potassium chloride CR (Klor-Con M10) ER tablet 40 mEqJump to med 40 mEq, Oral, PRN, Per Potassium Replacement Protocol, Starting on [place] 10/09/24 at 1813, May give linked alternative if patient unable to tolerate oral formulation. K Lab Replacement Action 3.1 to 3.5 40 mEq ORAL x 1 Under 3.1 Refer to IV replacement protocol Recheck K level in AM. Protocol not for use in patients with CrCl less than 30 mL/min. Do not crush or chew. Or potassium chloride (Klor-Con) packet 40 mEqJump to med 40 mEq, Oral, PRN, Per Potassium Replacement Protocol, Starting on [place] 10/09/24 at 1813, Administer as alternative if patient unable to tolerate oral tablet. K Lab Replacement Action 3.1 to 3.5 40 mEq ORAL x 1 Under 3.1 Refer to IV replacement protocol Recheck K level in AM. Protocol not for use in patients with CrCl less than 30 mL/min. Dissolve each packet in 4 ounces of water = 5 mEq per 1 oz fluid. Or potassium chloride 40 mEq in sodium chloride 0.9 % 500 mL IVPBJump to med 40 mEq, IntraVENous, at 130 mL/hr, Administer over 4 Hours, PRN, Per Potassium Replacement Protocol, Starting on [place] 10/09/24 at 1813, For Peripheral Line Use: K Lab Replacement Action 2.7 to 3.0 40 mEq x 1 dose Under 2.7 CALL PROVIDER and administer 40 mEq x 1 dose Infuse at 10 mEq/hr. Repeat Potassium lab 1 hour after administration. Protocol not for use in patients with CrCl less than 30 mL/min. Group 5: sodium phosphates 10 mmol in dextrose 5 % 100 mL IVPBJump to med 10 mmol, IntraVENous, at 66.7 mL/hr, Administer over 90 Minutes, PRN, Per Phosphate IV Replacement Protocol, Starting on [place] 10/09/24 at 1813, Phos level Replacement Action 2.3 to 2.7 mg/dL 10 mmol IVPB over 1.5 hours 1.5 to 2.2 mg/dL 15 mmol IVPB over 2 hours LESS than 1.5 mg/dL 20 mmol IVPB over 3 hours Or sodium phosphates 15 mmol in dextrose 5 % 250 mL IVPBJump to med 15 mmol, IntraVENous, at 125 mL/hr, Administer over 120 Minutes, PRN, Per Phosphate IV Replacement Protocol, Starting on [place] 10/09/24 at 1813, Phos level Replacement Action 2.3 to 2.7 mg/dL 10 mmol IVPB over 1.5 hours 1.5 to 2.2 mg/dL 15 mmol IVPB over 2 hours LESS than 1.5 mg/dL 20 mmol IVPB over 3 hours Or sodium phosphates 20 mmol in dextrose 5 % 250 mL IVPBJump to med 20 mmol, IntraVENous, at 83.3 mL/hr, Administer over 180 Minutes, PRN, Per Phosphate IV Replacement Protocol, Starting on [place] 10/09/24 at 1813, Phos level Replacement Action 2.3 to 2.7 mg/dL 10 mmol IVPB over 1.5 hours 1.5 to 2.2 mg/dL 15 mmol IVPB over 2 hours LESS than 1.5 mg/dL 20 mmol IVPB over 3 hours Scheduled Medication Order 02/02/2025 02/03/2025 02/04/2025 acetaminophen (Tylenol) tablet 325 mg 325 mg, Oral, 3 times daily, First dose on [place] 01/29/25 at 1400, Maximum dose of acetaminophen is 4000 mg from all sources in 24 hours. 0842 (Given - Provider: Armando Serrato RN)1312 (Given - Provider: Armando Serrato RN)211 (Not Given - Provider: Kailey Cross RN - Reason: Patient/family refused) 0824 (Given - Provider: Armando Serrato RN)1342 (Given - Provider: Armando Serrato RN)2150 (Not Given - Provider: Kailey Cross RN - Reason: Other - Comment: patient lethargic) 0831 (Given - Provider: Karen Noel LPN)1400 (Canceled Entry - Provider: Automatic Discharge Provider - Comment: Automatically canceled at discontinue of medication order) apixaban (Eliquis) tablet 5 mg 5 mg, Oral, 2 times daily, First dose on [place] 01/29/25 at 1325, Anticoagulant 0842 (Given - Provider: Armando Serrato RN)2110 (Not Given - Provider: Kailey Cross RN - Reason: Patient/family refused) 0824 (Given - Provider: Armando Serrato RN)2150 (Not Given - Provider: Kailey Cross RN - Reason: Other - Comment: patient lethargic) 0831 (Given - Provider: Karen Noel LPN) baclofen (Lioresal) tablet 5 mg 5 mg, Oral, 3 times daily, First dose on [place] 01/29/25 at 1400 0842 (Given - Provider: Armando Serrato RN)1311 (Given - Provider: Armando Serrato RN)211 (Not Given - Provider: Kailey Cross RN - Reason: Patient/family refused) 0823 (Given - Provider: Armando Serrato RN)1342 (Given - Provider: Armando Serrato RN)2150 (Not Given - Provider: Kailey Cross RN - Reason: Other - Comment: patient lethargic) 0831 (Given - Provider: Karen Noel LPN)1400 (Canceled Entry - Provider: Automatic Discharge Provider - Comment: Automatically canceled at discontinue of medication order) bumetanide (Bumex) tablet 1 mg 1 mg, Oral, 2 times daily, First dose on [place] 01/29/25 at 1500 0612 (Given - Provider: Wander Murcia RN)1620 (Given - Provider: Armando Serrato RN) 0519 (Not Given - Provider: Kailey Cross RN - Reason: Patient/family refused)1500 (Not Given - Provider: Armando Serrato RN - Reason: Patient/family refused) 0510 (Not Given - Provider: Kailey Cross RN - Reason: Patient/family refused)1500 (Canceled Entry - Provider: Automatic Discharge Provider - Comment: Automatically canceled at discontinue of medication order) donepezil (Aricept) tablet 10 mg 10 mg, Oral, Nightly, First dose on [place] 01/29/25 at 2100 2110 (Not Given - Provider: Kailey Cross RN - Reason: Patient/family refused) 215 (Not Given - Provider: Kailey Cross RN - Reason: Other - Comment: patient lethargic) gabapentin (Neurontin) capsule 300 mg 300 mg, Oral, 3 times daily, First dose on [place] 01/29/25 at 1400 0842 (Given - Provider: Armando Serrato RN)1318 (Given - Provider: Armando Serrato RN)2110 (Not Given - Provider: Kailey Cross RN - Reason: Patient/family refused) 0824 (Given - Provider: Armando Serrato RN)1342 (Given - Provider: Armando Serrato RN)2151 (Not Given - Provider: Kailey Cross RN - Reason: Other - Comment: patient lethargic) 0831 (Given - Provider: Karen Noel LPN)1400 (Canceled Entry - Provider: Automatic Discharge Provider - Comment: Automatically canceled at discontinue of medication order) influenza vaccine A&B surf ant adjuvanted (Fluad) HIGH-DOSE injection 0.5 mL 0.5 mL, IntraMUSCular, Prior to discharge, Starting on [place] 01/29/25 at 1324, For 1 dose insulin glargine (Lantus) injection 30 Units 30 Units, SubCUTAneous, Nightly, First dose on [place] 01/29/25 at 2100 2107 (Given - Provider: Kailey Cross RN) 2148 (Given - Provider: Kailey Cross RN) Insulin Lispro (Humalog) injection 0-12 Units(Linked Group 1) 0-12 Units, SubCUTAneous, 3 times daily with meals, First dose on [place] 01/29/25 at 1325, Medium Dose Correction Algorithm Glucose: Dose: LESS than 150 No Insulin 150-199 2 Units 200-249 4 Units 250-299 6 Units 300-349 8 Units 350-400 10 Units Above 400 12 Units 0842 (Given - Provider: Armando Serrato RN)1312 (Given - Provider: Armando Serrato RN)1854 (Given - Provider: Armando Serrato RN) 0831 (Given - Provider: Armando Serrato RN)1342 (Given - Provider: Armando Serrato RN)1700 (Not Given - Provider: Armando Serrato RN - Reason: Patient/family refused - Comment: Pt not eating) 0821 (Not Given - Provider: Karen Noel LPN - Reason: Order parameters not met)1216 (Given - Provider: Karen Noel LPN) Insulin Lispro (Humalog) injection 0-12 Units(Linked Group 1) 0-12 Units, SubCUTAneous, Nightly, First dose on Sun01/29/25 at 2100, If eating or bolus tube feeding: Medium Dose Correction Algorithm Glucose: Dose: LESS than 150 No Insulin 150-199 2 Units 200-249 4 Units 250-299 6 Units 300-349 8 Units 350-400 10 Units Above 400 12 Units 210 (Not Given - Provider: Kailey Cross RN - Reason: Patient/family refused) 214 (Given - Provider: Kailey Cross RN) miconazole (Micotin) 2 % powder Topical, 2 times daily, First dose on Sun01/29/25 at 1325, Apply to: b/l groin 0853 (Given - Provider: Armando Serrato RN) 0518 (Given - Provider: Kailey Cross RN)0824 (Given - Provider: Armando Serrato RN)2149 (Given - Provider: Kailey Cross RN) 0841 (Given - Provider: Karen Noel LPN) Petrolatum ointment Topical, 2 times daily, First dose on Sun02/02/25 at 1200, Nursing Staff to perform dressing change Bilateral lower extremities: Venous stasis dermatitis, lymphedema -Cleanse with soap and water, apply Aquaphor to intact dry flaky skin Daily and PRN -Elevate lower extremities, Apply to: Bilateral Lower Extremities 1318 (Given - Provider: Armando Serrato RN)2111 (Not Given - Provider: Kailey Cross RN - Reason: Patient/family refused) 0824 (Given - Provider: Armando Serrato RN)2150 (Given - Provider: Kailey Cross RN) 0841 (Given - Provider: Karen Noel LPN) piperacillin-tazobactam (Zosyn) 4,500 mg in sodium chloride 0.9 % 100 mL IVPB Mini-Bag Plus (CANCELED) 4,500 mg, IntraVENous, at 33.3 mL/hr, Administer over 3 Hours, Every 6 hours, First dose on [place] 01/29/25 at 1800, Mini-Bag Plus bag, Suspected Indication (Select all that apply): Urinary Tract Infection 0104 (New Bag - Provider: Wander Murcia RN)0439 (Stopped - Provider: Wander Murcia RN)0613 (New Bag - Provider: Wander Murcia RN)0915 (Stopped - Provider: Armando Serrato RN)1312 (New Bag - Provider: Armando Serrato RN)1642 (Stopped - Provider: Armando Serrato RN) senna-docusate sodium (Senokot-S) 8.6-50 MG tablet 2 tablet 2 tablet, Oral, Nightly, First dose on [place] 01/29/25 at 2100 2111 (Not Given - Provider: Kailey Cross RN - Reason: Patient/family refused) 2151 (Not Given - Provider: Kailey Cross RN - Reason: Other - Comment: patient lethargic) Continuous Medication Order 02/02/2025 02/03/2025 02/04/2025 lactated Ringer's infusion 100 mL/hr, IntraVENous, Continuous, Starting on Sun02/03/25 at 1815 1843 (New Bag - Provider: Armando Serrato RN) 0054 (New Bag - Provider: Kailey Cross RN)0327 (Rate/Dose Verify - Provider: Kailey Cross RN)0615 (Rate/Dose Verify - Provider: Kailey Cross RN)1635 (Due: Order Ending - Provider: Automatic Discharge Provider - Comment: [Order ends at this time. Document the following action when infusion is complete: Stopped]) PRN Medication Order 02/02/2025 02/03/2025 02/04/2025 acetaminophen (Tylenol) suppository 650 mg(Linked Group 2) 650 mg, Rectal, Every 6 hours PRN, fever, For temp greater than 100.4 F (38 C), Starting on [place] 01/29/25 at 1320, Administer if oral route cannot be used. Maximum dose of acetaminophen is 4000 mg from all sources in 24 hours. acetaminophen (Tylenol) tablet 650 mg(Linked Group 2) 650 mg, Oral, Every 6 hours PRN, mild pain (1-3), fever, For temp greater than 100.4 F (38 C), Starting on [place] 01/29/25 at 1320, Maximum dose of acetaminophen is 4000 mg from all sources in 24 hours. dextrose 5 % infusion 100 mL/hr, IntraVENous, PRN, Blood sugar less than 70mg/dL, Starting on [place] 01/29/25 at 1320, Start infusion following administration of dextrose 50% or glucagon. dextrose 50 % solution 12.5 g 12.5 g, IntraVENous, PRN, low blood sugar, Blood glucose less than 70 mg/dL and patient NOT ALERT or NPO., Starting on [place] 01/29/25 at 1320, If patient does not respond within 5 minutes, repeat dose x1. Start D5W at 100 mL/hour until ordering provider can be reached. Repeat blood glucose in 15 minutes. If blood glucose is less than 70 mg/dL, repeat treatment and recheck blood glucose in 15 minutes x2. If using Glucostabilizer, dose as instructed per system. glucagon (human recombinant) injection 1 mg 1 mg, IntraMUSCular, PRN, low blood sugar, Blood glucose less than 70 mg/dL and patient NOT ALERT or NPO and does not have IV access., Starting on [place] 01/29/25 at 1320, After administration, attempt intravenous access and start D5W at 100 mL/hr. Repeat blood glucose in 15 minutes x2 and notify provider. glucose oral gel 15 g 15 g, Oral, As needed, low blood sugar, Starting on [place] 01/29/25 at 1320, If blood glucose less than 50 mg/dL and patient ALERT and NOT NPO, give 2 tubes glucose gel. If blood glucose less than 70 mg/dL and patient ALERT and NOT NPO, give 1 tube glucose gel. Repeat blood glucose in 15 minutes. If blood glucose is less than 70 mg/dL, repeat treatment and recheck blood glucose in 15 minutes x2 and notify provider. naloxone (Narcan) injection 0.4 mg 0.4 mg, IntraVENous, Every 5 min PRN, opioid reversal, respiratory depression, Starting on [place] 01/29/25 at 1435, +++ For RR <10, pinpoint pupils, over sedation for opioid reversal - MUST notify automobile sales consultant provider immediately after first dose, may give IM or SQ if no IV access +++ ondansetron (Zofran) injection 4 mg(Linked Group 3) 4 mg, IntraVENous, Every 6 hours PRN, nausea, vomiting, Starting on [place] 01/29/25 at 1320, 1st Line. Give IV if patient is unable to take orally. If inadequate response within 60 minutes, proceed to next-line agent or contact provider if no further options ordered. ondansetron ODT (Zofran-ODT) disintegrating tablet 4 mg(Linked Group 3) 4 mg, Oral, Every 8 hours PRN, nausea, vomiting, Starting on [place] 01/29/25 at 1320, 1st Line. If inadequate response within 60 minutes, proceed to next-line agent or contact provider if no further options ordered. Patient should allow tablet to dissolve on tongue. Do not remove from blister pack until just before administering. oxyCODONE (Roxicodone) immediate release tablet 2.5 mg(Linked Group 4) 2.5 mg, Oral, Every 4 hours PRN, moderate pain (4-6), Starting on [place] 01/29/25 at 1431 0612 (See Alternative - Provider: Wander Murcia RN)1311 (See Alternative - Provider: Armando Serrato RN) 0050 (See Alternative - Provider: Kailey Cross, RN) oxyCODONE (Roxicodone) immediate release tablet 5 mg(Linked Group 4) 5 mg, Oral, Every 4 hours PRN, severe pain (7-10), Starting on Celeste 01/29/25 at 1431 0612 (Given - Provider: Wander Murcia RN)1311 (Given - Provider: Armando Serrato, RN) 0050 (Given - Provider: Kailey Cross, RN) Petrolatum ointment Topical, 2 times daily PRN, dry skin, Starting on Sun02/02/25 at 1124, Nursing Staff to perform dressing change Bilateral lower extremities: Venous stasis dermatitis, lymphedema -Cleanse with soap and water, apply Aquaphor to intact dry flaky skin Daily and PRN -Elevate lower extremities, Apply to: Bilateral Lower Extremities polyethylene glycol (PEG) 3350 (Miralax) packet 17 g 17 g, Oral, Daily PRN, constipation, Starting on Sun01/29/25 at 1320, 1st line for treatment of constipation - give scheduled if no bowel movement in past 24 hours. QUEtiapine (SEROquel) tablet 12.5 mg 12.5 mg, Oral, 2 times daily PRN, agitation, Starting on Sun02/03/25 at 1810 QUEtiapine (SEROquel) tablet 25 mg (CANCELED) 25 mg, Oral, 2 times daily PRN, agitation, Starting on 02/01/25 at 1338 0824 (Given - Provider: Armando Serrato RN) Linked Groups Order Group 1: Insulin Lispro (Humalog) injection 0-12 UnitsJump to med 0-12 Units, SubCUTAneous, 3 times daily with meals, First dose on Sun01/29/25 at 1325, Medium Dose Correction Algorithm Glucose: Dose: LESS than 150 No Insulin 150-199 2 Units 200-249 4 Units 250-299 6 Units 300-349 8 Units 350-400 10 Units Above 400 12 Units And Insulin Lispro (Humalog) injection 0-12 UnitsJump to med 0-12 Units, SubCUTAneous, Nightly, First dose on Sun01/29/25 at 2100, If eating or bolus tube feeding: Medium Dose Correction Algorithm Glucose: Dose: LESS than 150 No Insulin 150-199 2 Units 200-249 4 Units 250-299 6 Units 300-349 8 Units 350- 400 10 Units Above 400 12 Units Group 2: acetaminophen (Tylenol) tablet 650 mgJump to med 650 mg, Oral, Every 6 hours PRN, mild pain (1-3), fever, For temp greater than 100.4 F (38 C), Starting on Sun01/29/25 at 1320, Maximum dose of acetaminophen is 4000 mg from all sources in 24 hours. Or acetaminophen (Tylenol) suppository 650 mgJump to med 650 mg, Rectal, Every 6 hours PRN, fever, For temp greater than 100.4 F (38 C), Starting on Sun01/29/25 at 1320, Administer if oral route cannot be used. Maximum dose of acetaminophen is 4000 mg from all sources in 24 hours. Group 3: ondansetron ODT (Zofran-ODT) disintegrating tablet 4 mgJump to med 4 mg, Oral, Every 8 hours PRN, nausea, vomiting, Starting on Celeste 01/29/25 at 1320, 1st Line. If inadequate response within 60 minutes, proceed to next-line agent or contact provider if no further options ordered. Patient should allow tablet to dissolve on tongue. Do not remove from blister pack until just before administering. Or ondansetron (Zofran) injection 4 mgJump to med 4 mg, IntraVENous, Every 6 hours PRN, nausea, vomiting, Starting on Celeste 01/29/25 at 1320, 1st Line. Give IV if patient is unable to take orally. If inadequate response within 60 minutes, proceed to next-line agent or contact provider if no further options ordered. Group 4: oxyCODONE (Roxicodone) immediate release tablet 2.5 mgJump to med 2.5 mg, Oral, Every 4 hours PRN, moderate pain (4-6), Starting on Celeste 01/29/25 at 1431 Or oxyCODONE (Roxicodone) immediate release tablet 5 mgJump to med 5 mg, Oral, Every 4 hours PRN, severe pain (7-10), Starting on Celeste 01/29/25 at 1431 Care Teams (unrecognized sec tion and content) [employer] Floor Layer Relationship Specialty Start Date End Date Armando Robbins MD [facility] [place] [address] PCP - General Family Medicine 03/08/21 [employer] Floor Layer Relationship Specialty Start Date End Date Paige Rivera DO [address] [place] [address] PCP - General Internal Medicine 06/09/22 Annette Bejarano DO [address] [facility] [address] [place] [address] Surgeon Urology 06/11/22 [employer] Floor Layer Relationship Specialty Start Date End Date Paige Rivera DO [address] [place] [address] PCP - General Internal Medicine 06/09/22 Annette Bejarano A, DO [address] [place] [address] Surgeon Urology 06/11/22 [employer] Floor Layer Relationship Specialty Start Date End Date Paige Rivera DO [address] [place] [address] PCP - General Internal Medicine 06/09/22 Annette Bejarano A, DO [address] [place] [address] Surgeon Urology 06/11/22 [employer]phalt T[employer] Floor Layer Relationship Specialty Start Date End Date Paige Rivera DO [address] [place] [address] PCP - General Internal Medicine 06/09/22 Annette Bejarano A, DO [address] [place] [address] Surgeon Urology 06/11/22 [employer]phalt T[employer] Floor Layer Relationship Specialty Start Date End Date Paige Rivera DO [address] [place] [address] PCP - General Internal Medicine 06/09/22 Annette Bejarano A, DO [address] [place] [address] Surgeon Urology 06/11/22 [employer]phalt T[employer] Floor Layer Relationship Specialty Start Date End Date Paige Rivera DO [address] [place] [address] PCP - General Internal Medicine 06/09/22 DarciAnnette hernandez A, DO [address] [place] [address] Surgeon Urology 06/11/22 [employer]phalt Tile Floor Layer Relationship Specialty Start Date End Date Paige Rivera DO [address] [place] [address] PCP - General Internal Medicine 06/09/22 Annette Bejarano DO [address] [place] [address] Surgeon Urology 06/11/22 Asphalt Tile Floor Layer Relationship Specialty Start Date End Date Paige Rivera DO [address] [place] [address] PCP - General Internal Medicine 06/09/22 Annette Bejarano DO [address] [place] [address] Surgeon Urology 06/11/22 [employer]phalt Tile Floor Layer Relationship Specialty Start Date End Date Paige Rivera DO [address] [place] [address] PCP - General Internal Medicine 06/09/22 Annette Bejarano DO [address] [place] [address] Surgeon Urology 06/11/22 [employer]phalt Tile Floor Layer Relationship Specialty Start Date End Date Paige Rivera DO [address] [place] [address] PCP - General Internal Medicine 06/09/22 Annette Bejarano DO [address] [place] [address] Surgeon Urology 06/11/22 Bashir Vásquez MD [address] [place] [address] Surgeon Urology 07/31/23 [employer]phalt Tile Floor Layer Relationship Specialty Start Date End Date Paige Rivera DO [address] [place] [address] PCP - General Internal Medicine 06/09/22 Annette Bejarano DO [address] [place] [address] Surgeon Urology 06/11/22 Bashir Vásquez MD [address] [place] [phone] Surgeon Urology 07/31/23 [employer]phalt Tile Floor Layer Relationship Specialty Start Date End Date Paige Rivera DO [address] [place] [address] PCP - General Internal Medicine 06/09/22 Annette Bejarano DO [address] [place] [address] Surgeon Urology 06/11/22 Bashir Vásquez MD [address] [place] [address] Surgeon Urology 07/31/23 Asphalt Tile Floor Layer Relationship Specialty Start Date End Date Paige Rivera DO [address] [place] [address] PCP - General Internal Medicine 06/09/22 Annette Bejarano DO [address] [place] [address] Surgeon Urology 06/11/22 Bashir Vásquez MD [address] [place] [phone] Surgeon Urology 07/31/23 Asphalt Tile Floor Layer Relationship Specialty Start Date End Date Paige Rivera DO [address] [place] [address] PCP - General Internal Medicine 06/09/22 Annette Bejarano DO [address] [place] [address] Surgeon Urology 06/11/22 Bashir Vásquez MD [address] [place] [phone] Surgeon Urology 07/31/23 [employer]phalt Tile Floor Layer Relationship Specialty Start Date End Date Paige Rivera DO [address] [place] [address] PCP - General Internal Medicine 06/09/22 Annette Bejarano DO [address] [place] [address] Surgeon Urology 06/11/22 Bashir Vásquez MD [address] [place] [phone] Surgeon Urology 07/31/23 Asphalt Tile Floor Layer Relationship Specialty Start Date End Date Paige Rivera DO [address] [place] [address] PCP - General Internal Medicine 06/09/22 Annette Bejarano DO [address] [place] [address] Surgeon Urology 06/11/22 Bashir Vásquez MD [address] [place] [address] Surgeon Urology 07/31/23 [employer]phalt Tile Floor Layer Relationship Specialty Start Date End Date Paige Rivera DO [address] [place] [address] PCP - General Internal Medicine 06/09/22 Annette Bejarano DO [address] [place], [place] [id number] Surgeon Urology 06/11/22 Bashir Vásquez MD [address] [place] [phone] Surgeon Urology 07/31/23 Asphalt Tile Floor Layer Relationship Specialty Start Date End Date Paige Rivera DO [address] [place] [address] PCP - General Internal Medicine 06/09/22 Annette Bejarano DO [address] [place] [address] Surgeon Urology 06/11/22 Bashir Vásquez MD [address] [place] [address] Surgeon Urology 07/31/23 Asphalt Tile Floor Layer Relationship Specialty Start Date End Date Paige Rivera DO [address] [place] [address] PCP - General Internal Medicine 06/09/22 Annette Bejarano DO [address] [place] [address] Surgeon Urology 06/11/22 Bashir Vásquez MD [address] [place] [address] Surgeon Urology 07/31/23 Asphalt Tile Floor Layer Relationship Specialty Start Date End Date Paige Rivera DO [address] [place] [address] PCP - General Internal Medicine 06/09/22 Asphalt Tile Floor Layer Relationship Specialty Start Date End Date Paige Rivera DO [address] [place] [address] PCP - General Internal Medicine 06/09/22 Annette Bejarano DO [address] [place] [address] Surgeon Urology 06/11/22 Asphalt Tile Floor Layer Relationship Specialty Start Date End Date Paige Rivera DO [address] [place] [address] PCP - General Internal Medicine 06/09/22 Annette Bejarano DO [address] [place] [address] Surgeon Urology 06/11/22 Asphalt Tile Floor Layer Relationship Specialty Start Date End Date Paige Rivera DO [address] [place] [address] PCP - General Internal Medicine 06/09/22 Annette Bejarano DO [address] [place] [address] Surgeon Urology 06/11/22 Bashir Vásquez MD [address] [place] [phone] Surgeon Urology 07/31/23 Asphalt Tile Floor Layer Relationship Specialty Start Date End Date Paige Rivera [address] [place] [address] PCP - General Internal Medicine 06/09/22 Annette Bejarano DO [address] [place] [address] Surgeon Urology 06/11/22 Bashir Vásquez MD [address] [place] [phone] Surgeon Urology 07/31/23 FOR RECORDS PERTAINING TO PATIENTS WHO ARE [...] BE BASED ON THE PRIMARY CLINICAL RECORDS. [employer] [facility]. provides no warranty or guarantee of the accuracy or completeness of information in this document.
[2025-02-06 07:11] LABS: Hematocrit 34.8 % (37-47); Hemoglobin 11.1 g/dL (12.0-15.0); Mean Corp Hgb Conc 31.9 g/dL (32-36); Mean Corpuscular Volume 100.3 fL (81-99); Mean Platelet Vol. 12.2 fl (6.2-12.0); Platelet Count 220 K/mm3 (150-450); RBC Distribution Width CV 15.3 % (11.6-14.6); RBC Distribution Width SD 56.5 fl (35.1-43.9); Red Blood Count 3.47 M/mm3 (4.2-5.4); White Blood Count 6.9 K/mm3 (4.4-11.0)
[2025-02-06 07:49] LABS: AST(SGOT) 18 U/L (<=31); Alanine Aminotransfer ALT/SGPT 7 U/L (<=34); Albumin, Serum 3.1 g/dL (3.4-4.8); Alkaline Phosphatase 116 U/L (35-104); Anion Gap 10 (5-15); BUN 16 mg/dL (4-19); BUN/Creat Ratio 17.5 RATIO (10-20); Calcium,Total 8.8 mg/dL (7.6-11.0); Carbon Dioxide 25.1 mmol/L (21.0-32.0); Chloride 109 mmol/L (98-108); Globulin 3.1 g/dL (2.2-4.2); Glucose 173 mg/dL (70-99); Potassium 4.0 mmol/L (3.3-5.1); Vitamin D,25 Hydroxy 34.7 ng/mL (30-100)
== END ==
LOC: OLS.ACW300 05:00
PROVIDERS: Visit Provider Family Medicine
DX: G93.40 Encephalopathy, unspecified (principal); E11.649 Type 2 diabetes mellitus with hypoglycemia without coma; D51.9 Vitamin B12 deficiency anemia, unspecified; D64.9 Anemia, unspecified; E83.51 Hypocalcemia; F02.B18 Dementia in other diseases classified elsewhere, moderate, with other behavioral disturbance
CPT/HCPCS: 36415; 80053; 82306; 83036; 84443; 85027

== ENCOUNTER → 2025-02-25 | Outpatient (REF) | payer MEDICARE, MEDICAID, SELFPAY ==
--- OUTSIDE RECORDS SUMMARY | 2025-02-25 04:39 | XMS RPT_ITS | CCD ---
Author Organization [facility] Care Team Providers Care Pull Out Operator Name Role Phone FernandoPatricia Unavailable Unavailable Diego Elmore Unavailable Unavailable Unavailable Unavailable Unavailable Diego Elmore Unavailable [phone] [place] Unavailable Sandra Martinez Unavailable Unavailable Jens Frederick Unavailable Jose Shultz Unavailable Loli Kingston Unavailable Cliff Anaya Unavailable Unavailable Reji Levin Unavailable Rosendo COSBY, Armando Bunch Primary Care Provider [phone] Paige Rivera DO Primary Care Provider Darci DO, Annette A Unavailable Paige Rivera DO Primary Care Provider Darci DO, Annette A Unavailable Paige Rivera DO Primary Care Provider Darci DO, Annette A Unavailable Bashir Vásquez MD Unavailable Paige Rivera DO Primary Care Provider Darci DO, Annette A Unavailable Bashir Vásquez MD Unavailable Paige Rivera DO Primary Care Provider Darci DO, Annette A Unavailable [phone] Jeffry Lopez Attending Unavailable Jeffry Lopez Attending Unavailable CRISTINO BRUNO Admitting Unavailable PAIGE RIVERA Attending Unavailable BEKAH RIVERANATHAN Primary Care Unavailable GODWIN GOETZ Admitting Unavailable TESHA MCNAMARA [facility] MIGUEL, PAIGE Primary Care Unavailable MIGUEL [facility] Primary Care Unavailable BASHIR VÁSQUEZ Attending Unavailable Allergies Allergy Classification Reported Allergen(s) Allergy Type Date of Onset Reaction(s) Facility ertapenem (2 sources) ertapenem Drug Allergy 08-02-2022 [facility] (20 sources) ertapenem Drug Allergy 08-02-2022 [facility] Medications Current Medications Medication Drug Class(es) Dates [...] ointment (3 sources) Collagen-specifi c Enzyme Start: 022 End: Start: 04-08-2021 apply 1 dose topically [...] mg/ml injection (5 sources) Arteriolar Vasodilator Start: 04-09-19 22 10 mg, IntraVENous, EVERY 6 HOURS [...] Ev salvador 6 hours, First dose on 06/10/22 at 0730 High Dose Correction Algorithm Glucose: [...] MEALS, First dose (after last modification) on 04/09/21 at 1200 Start: 04-06-2021 End: 04-09-2021 inject [...] TID Quantity: 0 Refills: 0 Ordered: 05-Aug-2019 Oneida, Nany Status: Discontinued Generic Substitution Allowed Lactobacillus acidophilus [...] Quantity: 0 Refills: 0 Ordered: 17-Mar-2020 Vanessa Csatillo Generic Substitution Allowed metoprolol tartrate 25 mg [...] Seble Garcia Start: 06-Feb-2021 Generic Substitution Allowed vitamin b12 [...] Generic Substitution Allowed 20 ml albumin human, care home 250 mg/ml injection (20 sources) Human Serum [...] End: 06-10-2022 50 g, IntraVENous, Once, On 06/10/23 at 0415, For 1 dose Infusion rate [...] 3 TIME S DAILY, First dose on Sun03/27/21 at 0945 Start: 03-13-2021 1 ampule, Inha [...] daily, First dose on Sun01/29/25 at 1325, Anticoagulant Start: 10-09-2024 End: 10-18-2024 [...] at 1305 take 1 tablet by fito once daily ascorbic acid (Vitamin C) 250 [...] 1 tablet by fito th once daily at bedtime atorvastatin 10 mg oral tablet ; 1 tab(s) orally once a day (at bedtime) Quantity: 0 Refills: 0 Ordered: 17-Mar-2020 Vanessa Castillo Start: 14-Aug-2019 Status: Other Generic Substitution Allowed [...] Start: 04-14-2021 take 1 tablet by fito th three times daily baclofen (Lioresal) 5 MG tablet Take 1 tablet by mouth 3 times daily. 04/14/2021 Active Start: 04-14-2021 take 1 tablet by fito th once daily baclofen (Lioresal) 5 MG tablet Take 1 tablet by mouth daily. 0 04/14/2021 Active Start: 04-14-2021 take 1 tablet by fito th twice daily baclofen (Lioresal) 5 MG tablet [...] Start: 08-14-2019 take 2 tablets by mo [facility] three times daily baclofen 10 mg oral tablet ; 2 tab(s) orally 3 times a day Quantity: 0 Refills: 0 Ordered: 02-Feb-2021 Neelima Real Start: 14-Aug-2019 Generic Substitution Allowed End: 04-14-2021 take 1 tablet by fito th three times daily baclofen 10 mg oral [...] at 2130 take 1 tablet by fito th twice daily bumetanide 1 mg oral tablet [...] 50 mL/hr, IntraVEN ous, Continuous, Starting on Celeste 09/27/23 at 1015, [...] mL/hr, Administer over 2 Hours, ONCE, On 03/15/21 at 0330, For 1 dose 100 ml [...] End: 03-21-2021 IntraVENous, CONTINUOUS PRN, Starting on 03/21/21 at 1616, Until 03/21/21 at 1616, Pre-op (day of surgery) cephalexin [...] b lood sugar, Starting on Sun08/02/22 at 2008 If blood glucose less than 50 mg/dL [...] break. docusate sodium 50 mg / sennosides, care home 8.6 mg oral tablet (20 sources) Start: [...] 04-06-2021 End: 10-18-2024 take 2 tablets by [facility] twice daily Senna Plus 50 mg-8.6 mg oral tablet ; 2 tab(s) orally 2 times a day Quantity: 0 Refills: 0 Ordered: 02-Feb-2021 Neelima Real Generic Substitution Allowed donepezil hydrochloride 5 mg oral tablet (20 sources) Start: 01-29-2025 End: 02-04-2025 take 10 mg by mouth once daily 10 mg, Oral, Nightly, First dose on Celeste 01/29/25 at 2100 Start: 10-09-2024 End: 10-18-2024 Start: 11-23-2023 End: [...] irst dose on Sun08/02/22 at 2100 Start: 04-15-2022 End: 08-07-2022 donepezil (Aricept) 5 [...] End: 08-04-2023 40 mg, IntraVENous, Once, On Sun08/04/23 at 0730, For 1 dose Start: 08-02-2023 End: 08-03-2023 80 mg, IntraVENous, Once, On Sun08/03/23 at 0600, For 1 dose Start: 08-02-2023 End: 08-02-2023 40 mg, IntraVENous, Once, On Sun08/02/23 at 1030, For 1 dose Start: 07-11-2022 [...] does not have IV access., Starting on Sun01/03/24 at 0948, Preprocedure, After administration, attempt intravenous [...] or glucagon. Start: 03-08-2021 15 g, Oral, PA N, Low blood sugar, Starting on 04/09/21 [...] Start: 06-16-2022 End: 06-16-2022 100 Units, IntraCATHeter, PA N, line care, after infusions or after [...] heparin dosing algorithm, Starting on Sun06/09/22 at 2023 Half dose re-bolus based on pharmacy algorithm Start: 03-27-2021 2,200 Units, I ntraCATHeter, PRN, Line Care, Dialysis, Starting on [place] 03/27/21 at 1746 Start: 03-27-2021 2,100 Units, I ntraCATHeter, PRN, Line Care, Dialysis, Starting on [place] 03/27/21 at 1746 Start: 03-17-2021 End: 03-27-2021 1,200 Units, IntraCATHeter, PRN, Line Care, Dialysis, Starting on Celeste 03/17/21 at 1933 Start: 03-17-2021 End: 03-27-2021 1,100 Units, IntraCATHeter, PRN, Line Care, Dialysis, Starting on [place]este 03/17/21 at 1932 Start: 03-16-2021 End: 03-16-2021 1,100 Units, IntraCATHeter, ONCE PRN, Line Care, For hemodialysis system down vascular catheter, Starting on Sun03/16/21 at 0422, For 1 dose To VENOUS [...] EV SALVADOR 12 HOURS, First dose on Sun03/13/21 at 1600 Each lumen. Do NOT administer to lumens with continuous fluids currently infusing. Line Care. Use 10 mL or larger syringe. Start: 03-13-2021 250 Units, Int raCATHeter, PRN, Line Care, after blood draws and after infusion, Starting on Sun03/13/21 at 1527 Do NOT administer to lumens [...] hours, First dose (after last modification) on [place] 08/02/23 at 0930 Start: 08-01-2023 End: 08-02-2023 take 50 mg intravenously every six hours 50 mg, IntraVENous, Every 6 hours, First dose on Sun08/01/23 at 0800 Start: 06-12-2022 End: 06-13-2022 take 25 mg intravenously every twelve hours 25 mg, IntraVENous, Every 12 hours, First dose (after last modification) on 06/12/22 at 2245 Start: 06-10-2022 End: 06-12-2022 take [...] NIGHTLY, First dose (after last modification) on 03/21/21 at 2099 Start: 03-15-2021 End: 03-21-2021 inject 20 [IU] by subcutaneous injection once daily in the morning 20 Units, SubCUTAneous, EVERY MORNING, First dose (after last modification) on 03/15/21 at 0900 Start: 03-14-2021 End: 12-20-2021 inject 15 [IU] by subcutaneous injection once [...] Ev salvador 6 hours, First dose on 06/10/22 at 0000 NPO Medium Dose Correction Algorithm [...] HIP Quantity: 0 Refills: 0 Ordered: 05-Aug-2019 Oneida Nany Status: Discontinued Generic Substitution Allowed lidocaine 4% [...] 04-03-2021 End: 04-04-2021 0.5 mg, IntraVENous, ONCE PA N, Agitation, dressing change, Starting on Sun04/04/21 at 1309, For 1 dose For dressing change Start: 03-23-2021 End: 04-01-2021 0.5 mg, IntraVENous, 2 TIMES DAILY PRN, Other, Only with wound dressing changes, Starting on Sun03/23/21 at 1011 Only with wound dressing changes [...] Start: 11-29-2023 take 2 tablets by mo meh once daily melatonin 3 MG tablet Take [...] End: 08-05-2023 40 mg, IntraVENous, Once, On Sun08/05/23 at 1045, For 1 dose miconazole nitrate 0.02 mg/mg topical powder (20 sources) Azole Antifungal Start: 11-23-2023 End: 02-04-2025 apply 1 dose topically twice daily Topical, 2 times daily, First dose on Celeste 01/29/25 at 1325, Apply to: b/l groin Start: [...] on Sun03/16/21 at 0627, For 1 dose ALLY MILLER: cabinet override midodrine hydrochloride 5 mg oral tablet (1 source) alpha-Adrenergic Agonist Start: 03-21-2021 End: 03-30-2021 5 mg, Oral, 3 TIMES DAILY, First dose on 03/21/21 at 1800 Do not give after 1800 [...] PRN, opioid reversal, respiratory depression, Starting on Sun01/29/25 at 1435, +++ For RR Start: 10-09-2024 End: 10-18-2024 Start: 11-23-2023 End: 11-30-2023 Start: 08-07-2023 End: 08-09-2023 0.4 mg, IntraVENous, PRN, op ioid reversal, Starting on Sun08/07/23 at 1004, For oversedation/difficult to rouse, pinpoint pupils, RR < 8; notify primary team proposition player if used nystatin 618876 unt/ml topic al cream (20 sources) Polyene Antifungal Start: 11-22-2023 End: 11-26-2023 Start: 07-31-2023 End: 08-09-2023 apply 1 dose topically twice daily Topical, 2 times da cosmo, First dose on Sun07/31/23 at 0900, Recovery & On Unit, Apply to affected area(s) Start: 03-22-2022 nystatin (Myco statin) 513393 UNIT/GM powder 03/22/2022 Active 2 ml ondansetron [...] day Quantity: 6 Refills: 0 Ordered: 10-Feb-2021 Cristiane Poon Start: [...] Q6H Quantity: 0 Refills: 0 Ordered: 08-Feb-2021 Merle Hill Start: 08-Feb-2021 End: 21-Mar-2021 Status: Discontinued Generic [...] Hours, Every 6 hours, First dose on Sun01/29/25 at 1800, Mini-Bag Plus bag, Suspected Indication (Select all that apply): Urinary Tract Infection Start: 01-29-2025 End: 01-29-2025 4,500 mg, IntraVENous, at 20 0 mL/hr, Administer over 0.5 Hours, Once, On Sun01/29/25 at 1135, For 1 dose, Mini-Bag Plus bag, Suspected Indication (Select all that apply): Urinary Tract Infection polyethylene glycol 3350 31113 mg powder for oral solution (19 sources) [...] Hours, Every 1 hour, First dose on Sun08/04/23 at 1600, For 2 doses, Total dose: 20 mEq Start: 08-03-2023 End: 08-04-2023 take 1 [oz_av] by mouth once 40 mEq, Oral, Once, On 08/04/23 at 1600, For 1 dose, Dissolve [...] Start: 08-02-2022 End: 08-07-2022 5-250 mL/hr, IntraVENous, PA N, if patient receiving piggyback infusions and [...] Start: 06-09-2022 End: 06-16-2022 5-250 mL/hr, IntraVENous, PA N, if patient receiving piggyback infusions and [...] hours, First dose (after last modification) on Sun06/10/22 at 2100 Mini-Bag Plus bag Suspected Indication (Select all that apply): Bloodstream Infection Start: 06-10-2022 End: 06-10-2022 take 1000 mg intravenously every eight hours 1,000 mg, IntraVENous, at 200 mL/hr, Administer over 30 Minutes, Every 8 hours, First dose (after last reorder) on Sun06/10/22 at 0800 Mini-Bag Plus bag Suspected Indication (Select all that apply): Bloodstream Infection Start: 06-10-2022 End: 06-11-2022 take 125 mL intravenously every hour 125 mL/hr, IntraVENous, Continuous, Starting on Sun06/10/22 at 0615 Start: 06-09-2022 End: 06-16-2022 take [...] 03-15-2021 End: 03-15-2021 Starting on Sun03/15/21 at 2041, For 1 dose ALLY MILLER: cabinet override [...] lower limb ischemia ; Translations: [Atherosclerosis of [place] arteries of extremities with rest pain, unspecified [...] Results Test Name Value Interpretation Reference Range [facility] [id number] 02-04-2025 [id number] MAR & Discharge med list [facility]. [facility] [id number] [facility] [id number] Transport requested in [facility]. Awaiting time confirmation. [facility] [id number] Normal [facility] [id number] Normal [facility] Laboratory - Chemistry and C hemistry - challengeon 02-04-2025 Glucose [Mass/Vol] 181 mg/dL High 70 - 100 mg/dL [facility] Glucose [Mass/Vol] 132 mg/dL High 70 - 100 mg/dL [facility] No Panel Informationon 02-04 Interpretation and review of laboratory results Abnormal [facility] Performed by: Bentley Serna, [address] [facility] [address] CLIA ID: [id number] [facility] Interpretation and review of laboratory results Abnormal [facility] Performed by: Bentley Serna, [address] [facility] [address] CLIA ID: [id number] [facility] Nursing Noteon 02-04-2025 Nursing Note Report called to Jason plummer at [facility]. Normal [facility] Nursing Note At 0055, this RN att empted to collect patients blood work. Patient refused. Patient educated. Patient ultimately refusing. She stated, "I do not want to be poked anymore, no no no." Physician notified. Will continue to monitor. Normal [facility] Progress Noteon 02-04-2025 Progress Note Normal [facility] Progress Note Normal [facility] US Lower extremity vein - bi lateralOrdered By: Carlos Mclaughlin on 02-04-2025 Left Pop Rfx 0.7 s [facility] Work Phone: US Lower extremity vein - [...] US LOWER EXTREMITY VENOUS DUPLEX BILATERAL Normal [facility] Bacteria identified Cx Nom ( Bld)on 02-03-2025 Interpretation and review of laboratory results Normal [facility] Blood Collection Sit e: Left Forearm [facility] Blood Collection Sit e: Left Antecubital [facility] CBC W Auto Differential pane l (Bld)on 02-03-2025 Basophils (Bld) [#/Vol] 0 10*3/uL 0.0 - 0.2 10*3/uL [facility] Basophils/100 WBC (Bld) 0.5 % 0.0 - 2.0 % [facility] Eosinophils (Bld) [#/Vol] 0.4 10*3/uL 0.0 - 0.5 10*3/uL [facility] Eosinophils/100 WBC (Bld) 6.4 % High 0.0 - 6.0 % [facility] Erythrocyte distribution width (RBC) [Ratio] 15.9 % High 11.5 - 15.0 % [facility] Hematocrit (Bld) [Volume fraction] 32.7 % Low 35.0 - 47.0 % [facility] Hemoglobin (Bld) [Mass/Vol] 10.4 g/dL Low 11.7 - 16.0 g/dL [facility] Immature granulocytes (Bld) [#/Vol] 0 10*3/uL NINF - 0.1 10*3/uL [facility] [employer] [facility] Immature granulocytes/100 WBC (Bld) 0.2 % 0.0 - 2.0 % [facility] Interpretation and review of laboratory results Abnormal [facility] Lymphocytes (Bld) [#/Vol] 1.8 10*3/uL 1.0 - 4.3 10*3/uL [facility] Lymphocytes/100 WBC (Bld) 30.4 % 15.0 - 45.0 % [facility] MCH (RBC) [Entitic mass] 31.8 pg 26.0 - 34.0 pg [facility] MCHC (RBC) [Mass/Vol] 31.8 % 30.5 - 36.0 % [facility] MCV (RBC) [Entitic vol] 100 fL High 77.0 - 99.0 fL [facility] Monocytes (Bld) [#/Vol] 0.4 10*3/uL 0.0 - 0.9 10*3/uL [facility] Monocytes/100 WBC (Bld) 7 % 5.0 - 13.0 % [facility] Neutrophils (Bld) [#/Vol] 3.3 10*3/uL 1.8 - 7.5 10*3/uL [facility] Neutrophils/100 WBC (Bld) 55.5 % 38.0 - 82.0 % [facility] Nucleated RBC/100 WBC (Bld) [Ratio] 0 % [facility] Platelet mean volume (Bld) [Entitic vol] 11.8 fL 9.0 - 12.7 fL [facility] [employer] [facility] Platelets (Bld) [#/Vol] 201 10*3/uL 140 - 440 10*3/uL [facility] RBC (Bld) [#/Vol] 3.27 10*6/uL Low 3.80 - 5.2 0 10*6/uL [facility] WBC (Bld) [#/Vol] 6 10*3/uL 3.6 - 10.7 10*3/uL [facility] CBC WITH AUTO DIFFERENTIALon 02-03-2025 Basophils (Bld) [#/Vol] 0.0 10*3/uL Normal 0.0-0.2 [facility] Comment on above: Performed By: #### L [id number] ####Licensed Embalmer: REJI HAMILTON ([id number])[facility] [place] ([facility] Basophils/100 WBC (Bld) 0.5 % Normal 0.0-2.0 [facility] Comment on above: Performed By: #### L [id number] ####Licensed Embalmer: REJI HAMILTON ([id number])[facility] [place] ([facility])[address] Eosinophils (Bld) [#/Vol] 0.4 10*3/uL Normal 0.0-0.5 [facility] Comment on above: Performed By: #### L [id number] ####Licensed Embalmer: REJI HAMILTON ([id number])[facility] [place] ([facility])[address] Eosinophils/100 WBC (Bld) 6.4 % High 0.0-6.0 [facility] Comment on above: Performed By: #### L [id number] ####Licensed Embalmer: REJI HAMILTON ([id number])[facility] [place] ([facility])[address] Erythrocyte distribution width (RBC) [Ratio] 15.9 % High 11.5-15.0 [facility] Comment on above: Performed By: #### L [id number] ####Licensed Embalmer: REJI HAMILTON ([id number])[facility] [place] ([facility])[address] Hematocrit (Bld) [Volume fraction] 32.7 % Low 35.0-47.0 [facility] Comment on above: Performed By: #### L [id number] ####Licensed Embalmer: REJI HILLEfrenCAIN ([id number])[facility] ([facility])[address] Hemoglobin (Bld) [Mass/Vol] 10.4 g/dL Low 11.7-16.0 [facility] Comment on above: Performed By: #### L [id number] ####Licensed Embalmer: REJI JOY ([id number])[facility] ([facility])[address] IMMATURE GRANS % 0.2 % Normal 0.0-2.0 [facility] Comment on above: Performed By: #### L [id number] ####Licensed Embalmer: REJI BAUTISTACAIN ([id number])[facility] ([facility])[address] [place] [address] IMMATURE GRANS ABSOLUTE 0.0 10*3/uL Normal <0.1 [facility] Comment on above: Performed By: #### L [id number] ####Licensed Embalmer: REJI BAUTISTACAIN ([id number])[facility] ([facility])[address] [place] [address] Lymphocytes (Bld) [#/Vol] 1.8 10*3/uL Normal 1.0-4.3 [facility] Comment on above: Performed By: #### L [id number] ####Licensed Embalmer: REJI BAUTISTACAIN ([id number])[facility] ([facility])[address] [place] [address] Lymphocytes/100 WBC (Bld) 30.4 % Normal 15.0-45.0 [facility] Comment on above: Performed By: #### L [id number] ####Licensed Embalmer: REJI BAUTISTACAIN ([id number])[facility] ([facility])[address] [place] [address] MCH (RBC) [Entitic mass] 31.8 pg Normal 26.0-34.0 [facility] Comment on above: Performed By: #### L [id number] ####Licensed Embalmer: REJI BAUTISTACAIN ([id number])[facility] [place] ([facility])[address] MCHC 31.8 % Normal 30.5-36.0 [facility] Comment on above: Performed By: #### L [id number] ####Licensed Embalmer: REJI BAUTISTACAIN ([id number])[facility] [place] ([facility])[address] MCV (RBC) [Entitic vol] 100.0 fL High 77.0-99.0 [facility] Comment on above: Performed By: #### L [id number] ####Licensed Embalmer: REJI BAUTISTACANI ([id number])[facility] [place] ([facility])[address] Monocytes (Bld) [#/Vol] 0.4 10*3/uL Normal 0.0-0.9 [facility] Comment on above: Performed By: #### L [id number] ####Licensed Embalmer: REJI HAMILTON ([id number])[facility] [place] ([facility])[address] Monocytes/100 WBC (Bld) 7.0 % Normal 5.0-13.0 [facility] Comment on above: Performed By: #### L [id number] ####Licensed Embalmer: REJI BAUTISTACAIN ([id number])[facility] [place] ([facility])[address] NEUTROPHILS ABSOLUTE 3.3 10*3/uL Normal 1.8-7.5 [facility] Comment on above: Performed By: #### L [id number] ####Licensed Embalmer: REJI HAMILTON ([id number])[facility] [place] ([facility])[address] Neutrophils/100 WBC (Bld) 55.5 % Normal 38.0-82.0 [facility] Comment on above: Performed By: #### L [id number] ####Licensed Embalmer: REJI HAMILTON ([id number])[facility] [place] ([facility])[address] NRBC 0.0 /100 WBCs Normal 0.0-2.0 [facility] Comment on above: Performed By: #### L [id number] ####Licensed Embalmer: REJI HAMILTON ([id number])[facility] [place] ([facility])[address] Platelet mean volume (Bld) [Entitic vol] 11.8 fL Normal 9.0-12.7 [facility] Comment on above: Performed By: #### L [id number] ####Licensed Embalmer: REJI HAMILTON ([id number])[facility] [place] ([facility])[address] [place] [address] [place] Platelets (Bld) [#/Vol] 201 10*3/uL Normal 140-440 [facility] Comment on above: Performed By: #### L [id number] ####Licensed Embalmer: REJI HAMILTON ([id number])[facility] [place] ([facility])[address] RBC (Bld) [#/Vol] 3.27 10*6/uL Low 3.80-5.20 [facility] Comment on above: Performed By: #### L [id number] ####Licensed Embalmer: REJI HAMILTON ([id number])[facility] [place] ([facility])[address] [place] [address] [place] WBC (Bld) [#/Vol] 6.0 10*3/uL Normal 3.6-10.7 [facility] Comment on above: Performed By: #### L [id number] ####Licensed Embalmer: REJI HAMILTON ([id number])[facility] [place] ([facility])[address] COMPREHENSIVE METABOLIC PANE Fernando 02-03-2025 Albumin [Mass/Vol] 2.4 g/dL Low 3.1-4.5 [facility] Comment on above: Performed By: #### L [id number] ####Licensed Embalmer: REJI HAMILTON ([id number])[facility] [place] ([facility])[address] ALP [Catalytic activity/Vol] 84 U/L Normal 40-150 [facility] Comment on above: Performed By: #### L [id number] ####Licensed Embalmer: REJI HAMILTON ([id number])[facility] [place] [facility] ALT [Catalytic activity/Vol] U/L Normal <30 [facility] Comment on above: Performed By: #### L [id number] ####Licensed Embalmer: REJI HAMILTON ([id number])[facility] [place] ([facility])[address] Anion gap [Moles/Vol] 9 mmol/L Normal 3-13 [facility] Comment on above: Performed By: #### L [id number] ####Licensed Embalmer: REJI HAMILTON ([id number])[facility] [place] ([facility])[address] AST [Catalytic activity/Vol] 14 U/L Normal <34 [facility] Comment on above: Performed By: #### L [id number] ####Licensed Embalmer: REJI HAMILTON ([id number])[facility] [place] ([facility])[address] Bilirubin [Mass/Vol] 0.2 mg/dL Normal <1.2 [facility] Comment on above: Performed By: #### L [id number] ####Licensed Embalmer: REJI HAMILTON ([id number])[facility] [place] ([facility])[address] Calcium [Mass/Vol] 8.0 mg/dL Low 8.8-10.0 [facility] Comment on above: Performed By: #### L [id number] ####Licensed Embalmer: REJI BAUTISTACAIN ([id number])[facility] [place] ([facility])[address] [place] [address] [place] Chloride [Moles/Vol] 114 mmol/L High 98-107 [facility] Comment on above: Performed By: #### L [id number] ####Licensed Embalmer: REJI HILLEDIN ([id number])[facility] [place] ([facility])[address] CO2 [Moles/Vol] 24 mmol/L Normal 23-31 [facility] Comment on above: Performed By: #### L [id number] ####Licensed Embalmer: REJI BAUTISTACAIN ([id number])[facility] [place] ([facility])[address] Creatinine [Mass/Vol] 0.94 mg/dL Normal 0.58-1.12 [facility] Comment on above: Performed By: #### L [id number] ####Licensed Embalmer: REJI BAUTISTACAIN ([id number])[facility] [place] (SBHLAB)[address] GLOMERULAR FILTRATION RATE ML/MIN/1.73 SQ M.PREDICTED 63.0 mL/min/1.73m*2 Normal >60.0 [facility] Comment on above: Result Comment: Calc ulation based on the Chronic Kidney Disease Epidemiology Collaboration (CKD-EPI) equation refit without adjustment for race Performed By: #### L [id number] ####Licensed Embalmer: REJI HAMILTON ([id number])[facility] [place] (SBHLAB)155 [place] [address] [place] Glucose [Mass/Vol] 236 mg/dL High 82-115 [facility] Comment on above: Performed By: #### L AB17 ####Licensed Embalmer: REJI HAMILTON ([id number])[facility] [place] (SBHLAB)155 [place] [address] [place] Potassium [Moles/Vol] 3.6 mmol/L Normal 3.5-5.1 [facility] Comment on above: Result Comment: [facility] potassium values may be up to 0.5 mmol/L lower than serum values. Performed By: #### L AB17 ####Licensed Embalmer: REJI HAMILTON ([id number])[facility] ([facility])[address] Protein [Mass/Vol] 5.4 g/dL Low 6.4-8.3 [facility] Comment on above: Performed By: #### L AB17 ####Licensed Embalmer: REJI HAMILTON ([id number])[facility] ([facility])[address] Sodium [Moles/Vol] 147 mmol/L High 136-145 [facility] Comment on above: Performed By: #### L AB17 ####Licensed Embalmer: REJI HAMILTON ([id number])[facility] (SB[facility])[address] [place] [address] Urea nitrogen [Mass/Vol] 12 mg/dL Normal 9-23 [facility] Comment on above: Performed By: #### L AB17 ####Licensed Embalmer: REJI HAMILTON ([id number])[facility] (SBHLAB)[address] [place] [address] Comprehensive metabolic 1998 panelon 02-03-2025 Albumin [Mass/Vol] 2.4 g/dL Low 3.1 - 4.5 g/dL [facility] ALP [Catalytic activity/Vol] 84 U/L 40 - 150 U/L [facility] ALT [Catalytic activity/Vol] U/L NINF - 30 U/L [facility] Anion gap [Moles/Vol] 9 mmol/L 3 - 13 mmol/L [facility] AST [Catalytic activity/Vol] 14 U/L NINF - 34 U/L [facility] Bilirubin [Mass/Vol] 0.2 mg/dL NINF - 1.2 mg/dL [facility] Calcium [Mass/Vol] 8 mg/dL Low 8.8 - 10. 0 mg/dL [facility] Chloride [Moles/Vol] 114 mmol/L High 98 - 10 7 mmol/L [facility] CO2 [Moles/Vol] 24 mmol/L 23 - 31 mmol/L [facility] Creatinine [Mass/Vol] 0.94 mg/dL 0.58 - 1.12 mg/dL [facility] GFR/1.73 sq M.predicted (S/P/Bld) [Vol rate/Area] 63 mL/min - PINF [facility] Comment on above: Calculation based on the Chronic Kidney Disease Epidemiology Collaboration (CKD-EPI) equation refit without adjustment for race Glucose [Mass/Vol] 236 mg/dL High 82 - 115 mg/dL [facility] Interpretation and review of laboratory results Abnormal [facility] Potassium [Moles/Vol] 3.6 mmol/L 3.5 - 5.1 mmol/L [facility] Comment on above: Plasma potassium pietro ues may be up to 0.5 mmol/L lower than serum values. Protein [Mass/Vol] 5.4 g/dL Low 6.4 - 8.3 g/dL [facility] Sodium [Moles/Vol] 147 mmol/L High 136 - 145 mmol/L [facility] Urea nitrogen [Mass/Vol] 12 mg/dL 9 - 23 mg/dL [facility] Consulton 02-03-2025 Consult Normal [facility] Laboratory - Chemistry and C hemistry - challengeon 02-03-2025 Glucose [Mass/Vol] 192 mg/dL High 70 - 100 mg/dL [facility] Glucose [Mass/Vol] 162 mg/dL High 70 - 100 mg/dL [facility] Glucose [Mass/Vol] 218 mg/dL High 70 - 100 mg/dL [facility] Glucose [Mass/Vol] 238 mg/dL High 70 - 100 mg/dL [facility] Laboratory - Microbiology an d Antimicrobial susceptibilityon 02-03-2025 Bacteria identified Cx Nom (Bld) No growth at 5 days [facility] No Panel Informationon 02-03 Interpretation and review of laboratory results Abnormal [facility] Performed by: Bentley Serna, [address] [place] [address] CLIA ID: [id number] [facility] Interpretation and review of laboratory results Abnormal [facility] Performed by: Bentley Serna, [address] [facility] [address] CLIA ID: [id number] [facility] Interpretation and review of laboratory results Abnormal [facility] Performed by: Filemon Chavez [facility] [address] CLIA ID: [id number] [facility] Interpretation and review of laboratory results Abnormal [facility] Performed by: Filemon Chavez [facility] [address] CLIA ID: [id number] [facility] Nursing Noteon 02-03-2025 Nursing Note Normal [facility] Progress Noteon 02-03-2025 Progress Note Normal [facility] Progress Note Normal [facility] [id number] 02-02-2025 [id number] Normal [facility] Consulton 02-02-2025 Consult Normal [facility] Laboratory - Chemistry and C hemistry - challengeon 02-02-2025 Glucose [Mass/Vol] 267 mg/dL High 70 - 100 mg/dL [facility] Glucose [Mass/Vol] 251 mg/dL High 70 - 100 mg/dL [facility] Glucose [Mass/Vol] 242 mg/dL High 70 - 100 mg/dL [facility] Glucose [Mass/Vol] 179 mg/dL High 70 - 100 mg/dL [facility] No Panel Informationon 02-02 Interpretation and review of laboratory results Abnormal [facility] Performed by: Filemon Chavez [facility] [address] CLIA ID: [id number] [facility] Interpretation and review of laboratory results Abnormal [facility] Performed by: Filemon Chavez [facility] [address] CLIA ID: [id number] [facility] Interpretation and review of laboratory results Abnormal [facility] Performed by: Filemon Chavez [facility], [place] [address] CLIA ID: [id number] [facility] Interpretation and review of laboratory results Abnormal [facility] Performed by: Filemon Chavez [facility] [address] CLIA ID: [id number] [facility] Nursing Noteon 02-02-2025 Nursing Note Normal [facility] Progress Noteon 02-02-2025 Progress Note Normal [facility] Bacteria identified Cx Nom ( U)Ordered By: Shante Khoury on 02-01-2025 Interpretation and review of laboratory results Abnormal [facility] Laboratory - Chemistry and C hemistry - challengeon 02-01-2025 Glucose [Mass/Vol] 293 mg/dL High 70 - 100 mg/dL [facility] Glucose [Mass/Vol] 192 mg/dL High 70 - 100 mg/dL [facility] Glucose [Mass/Vol] 266 mg/dL High 70 - 100 mg/dL [facility] Glucose [Mass/Vol] 147 mg/dL High 70 - 100 mg/dL [facility] Laboratory - Microbiology an d Antimicrobial susceptibilityOrdered By: Shante Khoury on 02-01-2025 Bacteria identified Cx Nom (U) Normal urogenital gaby present [facility] Bacteria identified Cx Nom (U) >100,000 CFU/mL Escherichia coli Abnormal [facility] Bacteria identified Cx Nom (U) >100,000 CFU/mL Klebsiella pneumoniae Abnormal [facility] No Panel Informationon 02-01 Interpretation and review of laboratory results Abnormal [facility] Performed by: [facility] [address] [place] [address] CLIA ID: [id number] [facility] Interpretation and review of laboratory results Abnormal [facility] Performed by: [facility] [address] [place] [address] CLIA ID: [id number] [facility] Interpretation and review of laboratory results Abnormal [facility] Performed by: [facility] [address] [place] [address] CLIA ID: [id number] [facility] Interpretation and review of laboratory results Abnormal [facility] Performed by: [facility] S[facility] [address] [place] [address] CLIA ID: [id number] [facility] Nursing Noteon 02-01-2025 Nursing Note Pt throughout shift refusing turns and incontinece care. Pt educated multiple times on relieving pressure to help preent bed sores. Pt declined. Pt also refusing to have purwick removed at this time. Dr. Goetz Notified Normal [facility] Nursing Note Normal [facility] Progress Noteon 02-01-2025 Progress Note Normal [facility] [id number] 01-31-2025 [id number] Normal [facility] BASIC METABOLIC PANELon 11-0 Anion gap [Moles/Vol] 11 mmol/L Normal 3-13 [facility] Comment on above: Performed By: #### L AB15 ####Licensed Embalmer: REJI HAMILTON ([id number])[facility] (SBHLAB)[address] Calcium [Mass/Vol] 8.1 mg/dL Low 8.8-10.0 [facility] Comment on above: Performed By: #### L AB15 ####Licensed Embalmer: REJI HAMILTON ([id number])[facility] (SBHLAB)[address] Chloride [Moles/Vol] 111 mmol/L High 98-107 [facility] Comment on above: Performed By: #### L AB15 ####Licensed Embalmer: REJI HAMILTON ([id number])[facility] [place] (SBHLAB)[address] CO2 [Moles/Vol] 27 mmol/L Normal 23-31 [facility] Comment on above: Performed By: #### L AB15 ####Licensed Embalmer: REJI HAMILTON ([id number])[facility] (SBHLAB)[address] Creatinine [Mass/Vol] 1.08 mg/dL Normal 0.58-1.12 [facility] Comment on above: Performed By: #### L AB15 ####Licensed Embalmer: REJI HAMILTON ([id number])[facility] ([facility])155 [place] [address] [place] GLOMERULAR FILTRATION RATE ML/MIN/1.73 SQ M.PREDICTED 53.3 mL/min/1.73m*2 Low >60.0 [facility] Comment on above: Result Comment: Calc ulation based on the Chronic Kidney Disease Epidemiology Collaboration (CKD-EPI) equation refit without adjustment for race Performed By: #### L AB15 ####Licensed Embalmer: REJI [id number])[facility]ITALMelissa STONEDarian (SBHLAB)[address] Glucose [Mass/Vol] 114 mg/dL Normal 82-115 [facility] Comment on above: Performed By: #### L AB15 ####Licensed Embalmer: REJI HAMILTON ([id number])[facility] (SBHLAB)[address] Potassium [Moles/Vol] 3.8 mmol/L Normal 3.5-5.1 [facility] Comment on above: Result Comment: [facility] potassium values may be up to 0.5 mmol/L lower than serum values. Performed By: #### L AB15 ####Licensed Embalmer: REJI HAMILTON ([id number])[facility]ITALMelissa CASTILLOREHOBOTH MCK[facility] CH[facility] HEALTH CARE SERVICESDarian (SBHLAB)[address] Sodium [Moles/Vol] 149 mmol/L High 136-145 [facility] Comment on above: Performed By: #### L AB15 ####Licensed Embalmer: REJI HAMILTON ([id number])[facility] (HLAB)[address] Urea nitrogen [Mass/Vol] 17 mg/dL Normal 9-23 [facility] Comment on above: Performed By: #### L AB15 ####Licensed Embalmer: REJI HAMILTON ([id number])[facility] (HLAB)[address] Basic metabolic 1998 panelon 01-31-2025 Anion gap [Moles/Vol] 11 mmol/L 3 - 13 mmol/L [facility] Calcium [Mass/Vol] 8.1 mg/dL Low 8.8 - 10. 0 mg/dL [facility] Chloride [Moles/Vol] 111 mmol/L High 98 - 10 7 mmol/L [facility] CO2 [Moles/Vol] 27 mmol/L 23 - 31 mmol/L [facility] Creatinine [Mass/Vol] 1.08 mg/dL 0.58 - 1.12 mg/dL [facility] GFR/1.73 sq M.predicted (S/P/Bld) [Vol rate/Area] 53.3 mL/min Low - PINF [facility] [employer] Comment on above: Calculation based on the Chronic Kidney Disease Epidemiology Collaboration (CKD-EPI) equation refit without adjustment for race Glucose [Mass/Vol] 114 mg/dL 82 - 115 mg/dL [facility] Interpretation and review of laboratory results Abnormal [facility] Potassium [Moles/Vol] 3.8 mmol/L 3.5 - 5.1 mmol/L [facility] Comment on above: Plasma potassium pietro ues may be up to 0.5 mmol/L lower than serum values. Sodium [Moles/Vol] 149 mmol/L High 136 - 145 mmol/L [facility] [employer] Urea nitrogen [Mass/Vol] 17 mg/dL 9 - 23 mg/dL [facility] [employer] CBC W Auto Differential pane l (Bld)on 01-31-2025 Basophils (Bld) [#/Vol] 0 10*3/uL 0.0 - 0.2 10*3/uL [facility] [employer] Basophils/100 WBC (Bld) 0.5 % 0.0 - 2.0 % [facility] [employer] Eosinophils (Bld) [#/Vol] 0.4 10*3/uL 0.0 - 0.5 10*3/uL [facility] [employer] Eosinophils/100 WBC (Bld) 7.4 % High 0.0 - 6.0 % [facility] [employer] Erythrocyte distribution width (RBC) [Ratio] 15.8 % High 11.5 - 15.0 % [facility] [employer] Hematocrit (Bld) [Volume fraction] 33.1 % Low 35.0 - 47.0 % [facility] [employer] Hemoglobin (Bld) [Mass/Vol] 10.4 g/dL Low 11.7 - 16.0 g/dL [facility] [employer] Immature granulocytes (Bld) [#/Vol] 0 10*3/uL NINF - 0.1 10*3/uL [facility] [employer] Immature granulocytes/100 WBC (Bld) 0.2 % 0.0 - 2.0 % [facility] Interpretation and review of laboratory results Abnormal [facility] Lymphocytes (Bld) [#/Vol] 1.9 10*3/uL 1.0 - 4.3 10*3/uL [facility] [employer] Lymphocytes/100 WBC (Bld) 33.2 % 15.0 - 45.0 % [facility] MCH (RBC) [Entitic mass] 32 pg 26.0 - 34.0 pg [facility] MCHC (RBC) [Mass/Vol] 31.4 % 30.5 - 36.0 % [facility] MCV (RBC) [Entitic vol] 101.8 fL High 77.0 - 99.0 fL [facility] Monocytes (Bld) [#/Vol] 0.4 10*3/uL 0.0 - 0.9 10*3/uL [facility] Monocytes/100 WBC (Bld) 7.2 % 5.0 - 13.0 % [facility] Neutrophils (Bld) [#/Vol] 3 10*3/uL 1.8 - 7.5 10*3/uL [facility] Neutrophils/100 WBC (Bld) 51.5 % 38.0 - 82.0 % [facility] Nucleated RBC/100 WBC (Bld) [Ratio] 0 % [facility] Platelet mean volume (Bld) [Entitic vol] 11.8 fL 9.0 - 12.7 fL [facility] Platelets (Bld) [#/Vol] 195 10*3/uL 140 - 440 10*3/uL [facility] RBC (Bld) [#/Vol] 3.25 10*6/uL Low 3.80 - 5.2 0 10*6/uL [facility] WBC (Bld) [#/Vol] 5.8 10*3/uL 3.6 - 10.7 10*3/uL [facility] CBC WITH AUTO DIFFERENTIALon 01-31-2025 Basophils (Bld) [#/Vol] 0.0 10*3/uL Normal 0.0-0.2 [facility] Comment on above: Performed By: #### L [id number] ####Licensed Embalmer: REJI HAMILTON ([id number])[facility] ([facility])[address] [place] [address] [facility] Basophils/100 WBC (Bld) 0.5 % Normal 0.0-2.0 [facility] Comment on above: Performed By: #### L [id number] ####Licensed Embalmer: REJI HAMILTON ([id number])[facility] ([facility] Eosinophils (Bld) [#/Vol] 0.4 10*3/uL Normal 0.0-0.5 [facility] Comment on above: Performed By: #### L [id number] ####Licensed Embalmer: REJI BAUTISTACAIN ([id number])[facility] [place] (SBHLAB)[address] Eosinophils/100 WBC (Bld) 7.4 % High 0.0-6.0 [facility] Comment on above: Performed By: #### L [id number] ####Licensed Embalmer: REJI HAMILTON ([id number])[facility] ([facility] Erythrocyte distribution width (RBC) [Ratio] 15.8 % High 11.5-15.0 [facility] Comment on above: Performed By: #### L [id number] ####Licensed Embalmer: REJI HAMILTON ([id number])[facility] (SBAB)[address] Hematocrit (Bld) [Volume fraction] 33.1 % Low 35.0-47.0 [facility] Comment on above: Performed By: #### L [id number] ####Licensed Embalmer: REJI HAMILTON ([id number])[facility] ([facility])[address] [place] [address] Hemoglobin (Bld) [Mass/Vol] 10.4 g/dL Low 11.7-16.0 [facility] Comment on above: Performed By: #### L [id number] ####Licensed Embalmer: REJI HAMILTON ([id number])[facility] [place] (SBHLAB)[address] IMMATURE GRANS % 0.2 % Normal 0.0-2.0 [facility] Comment on above: Performed By: #### L [id number] ####Licensed Embalmer: REJI HAMILTON ([id number])[facility] (SBAB)[address] IMMATURE GRANS ABSOLUTE 0.0 10*3/uL Normal <0.1 [facility] Comment on above: Performed By: #### L [id number] ####Licensed Embalmer: REJI HAMILTON ([id number])[facility]ITALMelissa [facility] (SBHLAB)[address] Lymphocytes (Bld) [#/Vol] 1.9 10*3/uL Normal 1.0-4.3 [facility] Comment on above: Performed By: #### L [id number] ####Licensed Embalmer: REJI HAMILTON ([id number])[facility] (SBHLAB)[address] Lymphocytes/100 WBC (Bld) 33.2 % Normal 15.0-45.0 [facility] Comment on above: Performed By: #### L [id number] ####Licensed Embalmer: REJI HAMILTON ([id number])[facility] ([facility])[address] MCH (RBC) [Entitic mass] 32.0 pg Normal 26.0-34.0 [facility] Comment on above: Performed By: #### L [id number] ####Licensed Embalmer: REJI HAMILTON ([id number])[facility]ITALMelissa OJIBWA (SBHLAB)[address] MCHC 31.4 % Normal 30.5-36.0 [facility] Comment on above: Performed By: #### L [id number] ####Licensed Embalmer: REJI HAMILTON ([id number])[facility]ITALMelissa [facility] (SBHLAB)[address] MCV (RBC) [Entitic vol] 101.8 fL High 77.0-99.0 [facility] Comment on above: Performed By: #### L [id number] ####Licensed Embalmer: REJI HAMILTON ([id number])[facility] ([facility])[address] Monocytes (Bld) [#/Vol] 0.4 10*3/uL Normal 0.0-0.9 [facility] Comment on above: Performed By: #### L [id number] ####Licensed Embalmer: REJI HAMILTON ([id number])[facility] [place] (SBHLAB)[address] Monocytes/100 WBC (Bld) 7.2 % Normal 5.0-13.0 [facility] Comment on above: Performed By: #### L [id number] ####Licensed Embalmer: REJI HAMILTON ([id number])[facility] [place] (SBHLAB)[address] NEUTROPHILS ABSOLUTE 3.0 10*3/uL Normal 1.8-7.5 [facility] Comment on above: Performed By: #### L [id number] ####Licensed Embalmer: REJI HAMILTON ([id number])[facility] [place] (SBHLAB)[address] Neutrophils/100 WBC (Bld) 51.5 % Normal 38.0-82.0 [facility] Comment on above: Performed By: #### L [id number] ####Licensed Embalmer: REJI HAMILTON ([id number])[facility] [place] (SBHLAB)[address] NRBC 0.0 /100 WBCs Normal 0.0-2.0 [facility] Comment on above: Performed By: #### L [id number] ####Licensed Embalmer: REJI BAUTISTACAIN ([id number])[facility] [place] (SBHLAB)[address] Platelet mean volume (Bld) [Entitic vol] 11.8 fL Normal 9.0-12.7 [facility] Comment on above: Performed By: #### L [id number] ####Licensed Embalmer: REJI HAMILTON ([id number])[facility] [place] (SBHLAB)[address] [place] [address] [place] Platelets (Bld) [#/Vol] 195 10*3/uL Normal 140-440 [facility] Comment on above: Performed By: #### L [id number] ####Licensed Embalmer: REJI HAMILTON ([id number])[facility] (SBHLAB)[address] RBC (Bld) [#/Vol] 3.25 10*6/uL Low 3.80-5.20 [facility] Comment on above: Performed By: #### L [id number] ####Licensed Embalmer: REIJ HAMILTON ([id number])[facility]ITALMelissa [facility] (SBHLAB)[address] [place] [address] WBC (Bld) [#/Vol] 5.8 10*3/uL Normal 3.6-10.7 [facility] Comment on above: Performed By: #### L [id number] ####Licensed Embalmer: REJI HAMILTON ([id number])[facility]ITALMelissa STONEDarian (SBHLAB)[address] [place] [address] Laboratory - Chemistry and C hemistry - challengeon 01-31-2025 Glucose [Mass/Vol] 283 mg/dL High 70 - 100 mg/dL [facility] Glucose [Mass/Vol] 124 mg/dL High 70 - 100 mg/dL [facility] Glucose [Mass/Vol] 144 mg/dL High 70 - 100 mg/dL [facility] No Panel Informationon 01-31 Interpretation and review of laboratory results Abnormal [facility] Performed by: Filemon Chavez [place] [address] CLIA ID: [id number] [facility] Interpretation and review of laboratory results Abnormal [facility] Performed by: Filemon Chavez [place] [address] CLIA ID: [id number] [facility] Interpretation and review of laboratory results Abnormal [facility] Performed by: Bentley Serna [address] [place] [address] CLIA ID: [id number] [facility] Nursing Noteon 01-31-2025 Nursing Note Patient refused to t natty her night medications was only able to administer her insulin shots. Will continue to monitor Normal [facility] Nursing Note Patient refusing all medications, refusing to have blood glucose checked, and refusing to be turned. Normal [facility] Progress Noteon 01-31-2025 Progress Note Normal [facility] [id number] 01-30-2025 [id number] Normal [facility] [id number] Normal [facility] BASIC METABOLIC PANELon 10- Anion gap [Moles/Vol] 10 mmol/L Normal 3-13 [facility] Comment on above: Performed By: #### L [id number] ####Licensed Embalmer: REJI HAMILTON ([id number])[facility] [place] (SBHLAB)[address] Calcium [Mass/Vol] 8.0 mg/dL Low 8.8-10.0 [facility] Comment on above: Performed By: #### L AB15 ####Licensed Embalmer: REJI HAMILTON ([id number])[facility] [place] (SB[facility])[address] Chloride [Moles/Vol] 107 mmol/L Normal 98-107 [facility] Comment on above: Performed By: #### L AB15 ####Licensed Embalmer: REJI HAMILTON ([id number])[facility] [place] (SB[facility])[address] CO2 [Moles/Vol] 26 mmol/L Normal [facility] Comment on above: Performed By: #### L AB15 ####Licensed Embalmer: REJI HAMILTON ([id number])[facility] [place] (SBHLAB)[address] Creatinine [Mass/Vol] 1.00 mg/dL Normal 0.58-1.12 [facility] [place] Comment on above: Performed By: #### L [id number] ####Licensed Embalmer: REJI HAMILTON ([id number])[facility] [place] (SBHLAB)[address] GLOMERULAR FILTRATION RATE ML/MIN/1.73 SQ M.PREDICTED 58.5 mL/min/1.73m*2 Low >60.0 [facility] Comment on above: Result Comment: Calc ulation based on the Chronic Kidney Disease Epidemiology Collaboration (CKD-EPI) equation refit without adjustment for race Performed By: #### L [id number] ####Licensed Embalmer: REJI HAMILTON ([id number])[facility] (SBHLAB)[address] Glucose [Mass/Vol] 208 mg/dL High 82-115 [facility] Comment on above: Performed By: #### L AB15 ####Licensed Embalmer: REJI HAMILTON ([id number])[facility] (SBAB)[address] Potassium [Moles/Vol] 3.6 mmol/L Normal 3.5-5.1 [facility] [place] Comment on above: Result Comment: [facility] potassium values may be up to 0.5 mmol/L lower than serum values. Performed By: #### L AB15 ####Licensed Embalmer: REJI HAMILTON ([id number])[facility] (SBHLAB)[address] Sodium [Moles/Vol] 143 mmol/L Normal 136-145 [facility] Comment on above: Performed By: #### L [id number] ####Licensed Embalmer: REJI HAMILTON ([id number])[facility] (SBHLAB)[address] Urea nitrogen [Mass/Vol] 21 mg/dL Normal 9-23 [facility] Comment on above: Performed By: #### L [id number] ####Licensed Embalmer: REJI HAMILTON ([id number])[facility] (SBHLAB)[address] Basic metabolic 1998 panelon 01-30-2025 Anion gap [Moles/Vol] 10 mmol/L 3 - 13 mmol/L [facility] Calcium [Mass/Vol] 8 mg/dL Low 8.8 - 10. 0 mg/dL [facility] Chloride [Moles/Vol] 107 mmol/L 98 - 10 7 mmol/L [facility] CO2 [Moles/Vol] 26 mmol/L 23 - 31 mmol/L [facility] Creatinine [Mass/Vol] 1 mg/dL 0.58 - 1.12 mg/dL [facility] GFR/1.73 sq M.predicted (S/P/Bld) [Vol rate/Area] 58.5 mL/min Low - PINF [facility] Comment on above: Calculation based on the Chronic Kidney Disease Epidemiology Collaboration (CKD-EPI) equation refit without adjustment for race Glucose [Mass/Vol] 208 mg/dL High 82 - 115 mg/dL [facility] Interpretation and review of laboratory results Abnormal [facility] Potassium [Moles/Vol] 3.6 mmol/L 3.5 - 5.1 mmol/L [facility] Comment on above: Plasma potassium pietro ues may be up to 0.5 mmol/L lower than serum values. Sodium [Moles/Vol] 143 mmol/L 136 - 145 mmol/L [facility] Urea nitrogen [Mass/Vol] 21 mg/dL 9 - 23 mg/dL [facility] CBC W Auto Differential pane l (Bld)on 01-30-2025 Basophils (Bld) [#/Vol] 0 10*3/uL 0.0 - 0.2 10*3/uL [facility] Basophils/100 WBC (Bld) 0.4 % 0.0 - 2.0 % [facility] Eosinophils (Bld) [#/Vol] 0.4 10*3/uL 0.0 - 0.5 10*3/uL [facility] Eosinophils/100 WBC (Bld) 5.4 % 0.0 - 6.0 % [facility] Erythrocyte distribution width (RBC) [Ratio] 15.8 % High 11.5 - 15.0 % [facility] Hematocrit (Bld) [Volume fraction] 36.1 % 35.0 - 47.0 % [facility] Hemoglobin (Bld) [Mass/Vol] 11.6 g/dL Low 11.7 - 16.0 g/dL [facility] Immature granulocytes (Bld) [#/Vol] 0 10*3/uL NINF - 0.1 10*3/uL [facility] Immature granulocytes/100 WBC (Bld) 0.1 % 0.0 - 2.0 % [facility] Interpretation and review of laboratory results Abnormal [facility] [employer] Lymphocytes (Bld) [#/Vol] 1.9 10*3/uL 1.0 - 4.3 10*3/uL [facility] Lymphocytes/100 WBC (Bld) 28.5 % 15.0 - 45.0 % [facility] MCH (RBC) [Entitic mass] 32.2 pg 26.0 - 34.0 pg [facility] MCHC (RBC) [Mass/Vol] 32.1 % 30.5 - 36.0 % [facility] MCV (RBC) [Entitic vol] 100.3 fL High 77.0 - 99.0 fL [facility] Monocytes (Bld) [#/Vol] 0.5 10*3/uL 0.0 - 0.9 10*3/uL [facility] Monocytes/100 WBC (Bld) 7.5 % 5.0 - 13.0 % [facility] Neutrophils (Bld) [#/Vol] 3.9 10*3/uL 1.8 - 7.5 10*3/uL [facility] Neutrophils/100 WBC (Bld) 58.1 % 38.0 - 82.0 % [facility] Nucleated RBC/100 WBC (Bld) [Ratio] 0 % [facility] [employer] Platelet mean volume (Bld) [Entitic vol] 12.5 fL 9.0 - 12.7 fL [facility] Platelets (Bld) [#/Vol] 192 10*3/uL 140 - 440 10*3/uL [facility] RBC (Bld) [#/Vol] 3.6 10*6/uL Low 3.80 - 5.2 0 10*6/uL [facility] WBC (Bld) [#/Vol] 6.7 10*3/uL 3.6 - 10.7 10*3/uL [facility] CBC WITH AUTO DIFFERENTIALon 01-30-2025 Basophils (Bld) [#/Vol] 0.0 10*3/uL Normal 0.0-0.2 [facility] Comment on above: Performed By: #### L [id number] ####Licensed Embalmer: REJI HAMILTON ([id number])[facility] (SBHLAB)[address] Basophils/100 WBC (Bld) 0.4 % Normal 0.0-2.0 [facility] [place] Comment on above: Performed By: #### L [id number] ####Licensed Embalmer: REJI HAMILTON ([id number])[facility] [place] (SBHLAB)[address] Eosinophils (Bld) [#/Vol] 0.4 10*3/uL Normal 0.0-0.5 [facility] Comment on above: Performed By: #### L [id number] ####Licensed Embalmer: REJI HAMILTON ([id number])[facility] [place] (SBHLAB)[address] Eosinophils/100 WBC (Bld) 5.4 % Normal 0.0-6.0 [facility] [place] Comment on above: Performed By: #### L [id number] ####Licensed Embalmer: REJI HAMILTON ([id number])[facility] [place] (SBHLAB)[address] Erythrocyte distribution width (RBC) [Ratio] 15.8 % High 11.5-15.0 [facility] [place] Comment on above: Performed By: #### L [id number] ####Licensed Embalmer: REJI HAMILTON ([id number])[facility] [place] (SBHLAB)[address] [place] [address] Hematocrit (Bld) [Volume fraction] 36.1 % Normal 35.0-47.0 [facility] Comment on above: Performed By: #### L [id number] ####Licensed Embalmer: REJI HAMILTON ([id number])[facility] [place] (SBHLAB)[address] Hemoglobin (Bld) [Mass/Vol] 11.6 g/dL Low 11.7-16.0 [facility] Comment on above: Performed By: #### L [id number] ####Licensed Embalmer: REJI HAMILTON ([id number])[facility] [place] (SBHLAB)[address] IMMATURE GRANS % 0.1 % Normal 0.0-2.0 [facility] Comment on above: Performed By: #### L [id number] ####Licensed Embalmer: REJI BAUTISTACAIN ([id number])[facility] (SBHLAB)[address] IMMATURE GRANS ABSOLUTE 0.0 10*3/uL Normal <0.1 [facility] Comment on above: Performed By: #### L [id number] ####Licensed Embalmer: REJI HAMILTON ([id number])[facility] (SBHLAB)[address] Lymphocytes (Bld) [#/Vol] 1.9 10*3/uL Normal 1.0-4.3 [facility] Comment on above: Performed By: #### L [id number] ####Licensed Embalmer: REJI HAMILTON ([id number])[facility] (SBHLAB)[address] Lymphocytes/100 WBC (Bld) 28.5 % Normal 15.0-45.0 [facility] Comment on above: Performed By: #### L [id number] ####Licensed Embalmer: REJI HAMILTON ([id number])[facility] (SBHLAB)[address] MCH (RBC) [Entitic mass] 32.2 pg Normal 26.0-34.0 [facility] Comment on above: Performed By: #### L [id number] ####Licensed Embalmer: REJI HAMILTON ([id number])[facility] (SBHLAB)[address] MCHC 32.1 % Normal 30.5-36.0 [facility] Comment on above: Performed By: #### L [id number] ####Licensed Embalmer: REJI HAMILTON ([id number])[facility] (SBHLAB)[address] MCV (RBC) [Entitic vol] 100.3 fL High 77.0-99.0 [facility] Comment on above: Performed By: #### L [id number] ####Licensed Embalmer: REJI BAUTISTACAIN ([id number])[facility] [place] (SBHLAB)[address] Monocytes (Bld) [#/Vol] 0.5 10*3/uL Normal 0.0-0.9 [facility] Comment on above: Performed By: #### L [id number] ####Licensed Embalmer: REJI HILLEDIN ([id number])[facility] [place] (SBHLAB)[address] Monocytes/100 WBC (Bld) 7.5 % Normal 5.0-13.0 [facility] Comment on above: Performed By: #### L [id number] ####Licensed Embalmer: REJI BAUITSTACAIN ([id number])[facility] [place] (SBHLAB)[address] NEUTROPHILS ABSOLUTE 3.9 10*3/uL Normal 1.8-7.5 [facility] [place] Comment on above: Performed By: #### L [id number] ####Licensed Embalmer: REJI BAUTISTACAIN ([id number])[facility] [place] (SBHLAB)[address] Neutrophils/100 WBC (Bld) 58.1 % Normal 38.0-82.0 [facility] Comment on above: Performed By: #### L [id number] ####Licensed Embalmer: REJI BAUTISTACAIN ([id number])[facility] [place] (SBHLAB)[address] NRBC 0.0 /100 WBCs Normal 0.0-2.0 [facility] Comment on above: Performed By: #### L [id number] ####Licensed Embalmer: REJI HAMILTON ([id number])[facility] [place] (SBHLAB)[address] Platelet mean volume (Bld) [Entitic vol] 12.5 fL Normal 9.0-12.7 [facility] Comment on above: Performed By: #### L [id number] ####Licensed Embalmer: REJI HAMILTON ([id number])[facility] (SBHLAB)[address] Platelets (Bld) [#/Vol] 192 10*3/uL Normal 140-440 [facility] Comment on above: Performed By: #### L [id number] ####Licensed Embalmer: REJI HAMILTON ([id number])[facility]ITAL[facility]issa [facility] (SBHLAB)[address] RBC (Bld) [#/Vol] 3.60 10*6/uL Low 3.80-5.20 [facility] Comment on above: Performed By: #### L [id number] ####Licensed Embalmer: REJI HAMILTON ([id number])[facility]ITALMelissa STONEDarian (SBHLAB)[address] [place] [address] WBC (Bld) [#/Vol] 6.7 10*3/uL Normal 3.6-10.7 [facility] Comment on above: Performed By: #### L [id number] ####Licensed Embalmer: REJI HAMILTON ([id number])[facility] (SBHLAB)[address] [place] [address] Laboratory - Chemistry and C hemistry - challengeon 01-30-2025 Glucose [Mass/Vol] 262 mg/dL High 70 - 100 mg/dL [facility] Glucose [Mass/Vol] 318 mg/dL High 70 - 100 mg/dL [facility] No Panel Informationon 01-30 Interpretation and review of laboratory results Abnormal [facility] Performed by: Filemon Chavez [place] [address] CLIA ID: [id number] [facility] Interpretation and review of laboratory results Abnormal [facility] Performed by: Filemon Chavez [facility] [address] CLIA ID: [id number] [facility] Nursing Noteon 01-30-2025 Nursing Note Patient refusing all meds at present. Patient refusing to allow staff to turn patient. Patient screaming to get out of her room. Patient incontinent of urine. Normal [facility] Nursing Note Normal [facility] Progress Noteon 01-30-2025 Progress Note Normal [facility] Progress Note Normal [facility] Progress Note Normal [facility] Progress Note Normal [facility] BLOOD CULTUREon 01-29-2025 Bacteria identified Cx Nom (Bld) Normal [facility] Comment on above: Performed By: #### L [id number] ####Licensed Embalmer: MERLE RODRIGUES ([id number])[facility] ([address] CBC W Auto Differential pane l (Bld)on 01-29-2025 Basophils (Bld) [#/Vol] 0 10*3/uL 0.0 - 0.2 10*3/uL [facility] Basophils/100 WBC (Bld) 0.3 % 0.0 - 2.0 % [facility] Eosinophils (Bld) [#/Vol] 0.2 10*3/uL 0.0 - 0.5 10*3/uL [facility] Eosinophils/100 WBC (Bld) 3.2 % 0.0 - 6.0 % [facility] Erythrocyte distribution width (RBC) [Ratio] 15.5 % High 11.5 - 15.0 % [facility] Hematocrit (Bld) [Volume fraction] 35 % 35.0 - 47.0 % [facility] Hemoglobin (Bld) [Mass/Vol] 11.3 g/dL Low 11.7 - 16.0 g/dL [facility] Immature granulocytes (Bld) [#/Vol] 0 10*3/uL NINF - 0.1 10*3/uL [facility] [employer] Immature granulocytes/100 WBC (Bld) 0.3 % 0.0 - 2.0 % [facility] Interpretation and review of laboratory results Abnormal [facility] Lymphocytes (Bld) [#/Vol] 2.1 10*3/uL 1.0 - 4.3 10*3/uL [facility] Lymphocytes/100 WBC (Bld) 31.6 % 15.0 - 45.0 % [facility] MCH (RBC) [Entitic mass] 32.3 pg 26.0 - 34.0 pg [facility] MCHC (RBC) [Mass/Vol] 32.3 % 30.5 - 36.0 % [facility] MCV (RBC) [Entitic vol] 100 fL High 77.0 - 99.0 fL [facility] Monocytes (Bld) [#/Vol] 0.5 10*3/uL 0.0 - 0.9 10*3/uL [facility] Monocytes/100 WBC (Bld) 7.7 % 5.0 - 13.0 % [facility] Neutrophils (Bld) [#/Vol] 3.8 10*3/uL 1.8 - 7.5 10*3/uL [facility] Neutrophils/100 WBC (Bld) 56.9 % 38.0 - 82.0 % [facility] Nucleated RBC/100 WBC (Bld) [Ratio] 0 % [facility] Platelet mean volume (Bld) [Entitic vol] 11.6 fL 9.0 - 12.7 fL [facility] Platelets (Bld) [#/Vol] 207 10*3/uL 140 - 440 10*3/uL [facility] RBC (Bld) [#/Vol] 3.5 10*6/uL Low 3.80 - 5.2 0 10*6/uL [facility] WBC (Bld) [#/Vol] 6.7 10*3/uL 3.6 - 10.7 10*3/uL [facility] CBC WITH AUTO DIFFERENTIALon 01-29-2025 Basophils (Bld) [#/Vol] 0.0 10*3/uL Normal 0.0-0.2 [facility] Comment on above: Performed By: #### L [id number] ####Licensed Embalmer: REJI HAMILTON ([id number])[facility] (SBHLAB)[address] [place] [address] Basophils/100 WBC (Bld) 0.3 % Normal 0.0-2.0 [facility] Comment on above: Performed By: #### L [id number] ####Licensed Embalmer: REJI HAMILTON ([id number])[facility] (SBHLAB)[address] Eosinophils (Bld) [#/Vol] 0.2 10*3/uL Normal 0.0-0.5 [facility] Comment on above: Performed By: #### L [id number] ####Licensed Embalmer: REJI HAMILTON ([id number])[facility] [place] (SBHLAB)[address] Eosinophils/100 WBC (Bld) 3.2 % Normal 0.0-6.0 [facility] Comment on above: Performed By: #### L [id number] ####Licensed Embalmer: REJI HAMILTON ([id number])[facility] (SBAB)[address] Erythrocyte distribution width (RBC) [Ratio] 15.5 % High 11.5-15.0 [facility] Comment on above: Performed By: #### L [id number] ####Licensed Embalmer: REJI HAMILTON ([id number])[facility] (SBAB)[address] Hematocrit (Bld) [Volume fraction] 35.0 % Normal 35.0-47.0 [facility] Comment on above: Performed By: #### L [id number] ####Licensed Embalmer: REJI HAMILTON ([id number])[facility] (SBAB)[address] Hemoglobin (Bld) [Mass/Vol] 11.3 g/dL Low 11.7-16.0 [facility] Comment on above: Performed By: #### L [id number] ####Licensed Embalmer: REJI HAMILTON ([id number])[facility] [place] (SBHLAB)[address] IMMATURE GRANS % 0.3 % Normal 0.0-2.0 [facility] Comment on above: Performed By: #### L [id number] ####Licensed Embalmer: REJI HAMILTON ([id number])[facility] (SBAB)[address] IMMATURE GRANS ABSOLUTE 0.0 10*3/uL Normal <0.1 [facility] Comment on above: Performed By: #### L [id number] ####Licensed Embalmer: REJI HAMILTON ([id number])[facility] [place] (SBHLAB)[address] Lymphocytes (Bld) [#/Vol] 2.1 10*3/uL Normal 1.0-4.3 [facility] Comment on above: Performed By: #### L [id number] ####Licensed Embalmer: REJI HAMILTON ([id number])[facility] [place] (SBHLAB)[address] Lymphocytes/100 WBC (Bld) 31.6 % Normal 15.0-45.0 [facility] Comment on above: Performed By: #### L [id number] ####Licensed Embalmer: REJI HAMILTON ([id number])[facility] [place] (SBHLAB)[address] MCH (RBC) [Entitic mass] 32.3 pg Normal 26.0-34.0 [facility] Comment on above: Performed By: #### L [id number] ####Licensed Embalmer: REJI HAMILTON ([id number])[facility] [place] (SBHLAB)[address] MCHC 32.3 % Normal 30.5-36.0 [facility] Comment on above: Performed By: #### L [id number] ####Licensed Embalmer: REJI HAMILTON ([id number])[facility] [place] (SBHLAB)[address] MCV (RBC) [Entitic vol] 100.0 fL High 77.0-99.0 [facility] Comment on above: Performed By: #### L [id number] ####Licensed Embalmer: REJI HAMILTON ([id number])[facility] [place] (SBHLAB)[address] [place] [address] [place] Monocytes (Bld) [#/Vol] 0.5 10*3/uL Normal 0.0-0.9 [facility] Comment on above: Performed By: #### L [id number] ####Licensed Embalmer: REJI HAMILTON ([id number])[facility] [place] (SBHLAB)[address] Monocytes/100 WBC (Bld) 7.7 % Normal 5.0-13.0 [facility] Comment on above: Performed By: #### L [id number] ####Licensed Embalmer: REJI HAMILTON ([id number])[facility] [place] (SBHLAB)[address] NEUTROPHILS ABSOLUTE 3.8 10*3/uL Normal 1.8-7.5 [facility] [place] Comment on above: Performed By: #### L [id number] ####Licensed Embalmer: REJI HAMILTON ([id number])[facility] [place] (SBHLAB)[address] Neutrophils/100 WBC (Bld) 56.9 % Normal 38.0-82.0 [facility] Comment on above: Performed By: #### L [id number] ####Licensed Embalmer: REJI HAMILTON ([id number])[facility] [place] (SBHLAB)[address] NRBC 0.0 /100 WBCs Normal 0.0-2.0 [facility] Comment on above: Performed By: #### L [id number] ####Licensed Embalmer: REJI HAMILTON ([id number])[facility] [place] (SBHLAB)[address] Platelet mean volume (Bld) [Entitic vol] 11.6 fL Normal 9.0-12.7 [facility] Comment on above: Performed By: #### L [id number] ####Licensed Embalmer: REJI HAMILTON ([id number])[facility] [place] (SBHLAB)[address] [place] [address] [place] Platelets (Bld) [#/Vol] 207 10*3/uL Normal 140-440 [facility] Comment on above: Performed By: #### L [id number] ####Licensed Embalmer: REJI HAMILTON ([id number])[facility] (SBHLAB)[address] RBC (Bld) [#/Vol] 3.50 10*6/uL Low 3.80-5.20 [facility] Comment on above: Performed By: #### L [id number] ####Licensed Embalmer: REJI HAMILTON ([id number])[facility] (SBHLAB)[address] [place] [address] WBC (Bld) [#/Vol] 6.7 10*3/uL Normal 3.6-10.7 [facility] Comment on above: Performed By: #### L [id number] ####Licensed Embalmer: REJI HAMILTON ([id number])[facility] (SBHLAB)[address] [place] [address] COMPLETE URINALYSIS WITH REF TARIQ TO CULTUREon 01-29-2025 BACTERIA (#/HPF) IN URINE Few Abnormal Negative [facility] Comment on above: Performed By: #### L [id number] ####Licensed Embalmer: REJI HAMILTON ([id number])[facility] (SBHLAB)[address] [place] [address]#### [id number] ####Licensed Embalmer: MERLE RODRIGUES ([id number])[facility] ([facility])[address] [place] [address] BILIRUBIN, TOTAL PRESENCE IN URINE Negative Normal Negative [facility] Comment on above: Performed By: #### L [id number] ####Licensed Embalmer: REJI HAMILTON ([id number])[facility] (SBHLAB)[address] [place] [address]#### [id number] ####Licensed Embalmer: MERLE RODRIGUES ([id number])[facility] ([facility])[address] [place] [address] Clarity (U) Turbid Abnormal Clear [facility] Comment on above: Performed By: #### L [id number] ####Licensed Embalmer: REJI HAMILTON ([id number])[facility]AN[facility] (SBHLAB)[address] [place] [address]#### [id number] ####Licensed Embalmer: MERLE RODRIGUES ([id number])[facility] ([facility])[address] [place] [address] Color (U) Yellow Normal Lt. Yellow [facility] Comment on above: Performed By: #### L [id number] ####Licensed Embalmer: REJI HAMILTON ([id number])[facility]ITALMelissa [facility] CENTERDarian ([facility])[address] [place] [address]#### [id number] ####Licensed Embalmer: MERLE RODRIGUES ([id number])[facility] ([facility])[address] [place] [address] GLUCOSE (MG/DL) IN URINE Normal Normal Normal (<70) [facility] Comment on above: Performed By: #### L [id number] ####Licensed Embalmer: REJI HAMILTON ([id number])[facility] ([facility])[address] [place] [address]#### [id number] ####Licensed Embalmer: MERLE RODRIGUES ([id number])[facility] ([facility])[address] [place] [address] HEMOGLOBIN PRESENCE IN URINE 0.03 mg/dL Abnormal Negative [facility] Comment on above: Performed By: #### L [id number] ####Licensed Embalmer: REJI HAMILTON ([id number])[facility] ([facility])[address] [place] [address]#### [id number] ####Licensed Embalmer: MERLE RODRIGUES ([id number])[facility] ([facility])[address] [place] [address] Ketones Ql (U) Negative Normal Negative [facility] Comment on above: Performed By: #### L [id number] ####Licensed Embalmer: REJI HAMILTON ([id number])[facility]ITAL[facility] SER[facility] ([facility])[address]#### [id number] ####Licensed Embalmer: MERLE RODRIGUES ([id number])[facility] ([facility])[address] [place] [address] LEUKOCYTE ESTERASE PRESENCE IN URINE BY TEST STRIP 500 Jimenez/uL Abnormal Negative [facility] Comment on above: Performed By: #### L [id number] ####Licensed Embalmer: REJI HAMILTON ([id number])[facility]ITALA [facility]NBAN[facility] ([facility])[address]#### [id number] ####Licensed Embalmer: MERLE RODRIGUES ([id number])[facility] ([facility])[address] [place] [address] NITRITE PRESENCE IN URINE Negative Normal Negative [facility] Comment on above: Performed By: #### L [id number] ####Licensed Embalmer: REJI HAMILTON ([id number])[facility]ITAL[facility]issa STONE ([facility]AB)[address]#### [id number] ####Licensed Embalmer: MERLE RODRIGUES ([id number])[facility] ([facility])[address] [place] [address] pH (U) 8.0 [pH] Normal 5.0-8.0 [facility] Comment on above: Performed By: #### L [id number] ####Licensed Embalmer: REJI HAMILTON ([id number])[facility]ITALMelissa STONEN (SBHLAB)[address] [place] [address] [place]#### [id number] ####Licensed Embalmer: MERLE RODRIGUES ([id number])[facility] ([facility])[address] [place] [address] Protein (U) [Mass/Vol] 100 mg/dL Abnormal Negative [facility] Comment on above: Performed By: #### L [id number] ####Licensed Embalmer: REJI HAMILTON ([id number])[facility] (SBHLAB)[address]#### [id number] ####Licensed Embalmer: MERLE RODRIGUES ([id number])[facility] (SACLAB)[address] [place] [address] RBC (#/HPF) IN URINE SEDIMENT 3-5 Abnormal 0-2 [facility] Comment on above: Performed By: #### L [id number] ####Licensed Embalmer: REJI HAMILTON ([id number])[facility] (SBHLAB)[address]#### [id number] ####Licensed Embalmer: MERLE RODRIGUES ([id number])[facility])[address] [place] [address] Specific gravity (U) [Rel density] 1.015 Normal 1.005-1.030 [facility] Comment on above: Result Comment: LANA Rangel COMMENTS:This specimen has been reflexed to urine culture. Performed By: #### L [id number] ####Licensed Embalmer: REJI HAMILTON ([id number])[facility]ITALMelissa [facility] (SBHLAB)[address]#### [id number] ####Licensed Embalmer: MERLE RODRIGUES ([id number])[facility] (S[facility])[address] [place] [address] SQUAMOUS EPITHELIAL CELLS (#/HPF) IN URINE SEDIMENT 3-5 Normal 3-5 [facility] Comment on above: Performed By: #### L [id number] ####Licensed Embalmer: REJI HAMILTON ([id number])[facility] (SBHLAB)[address] [place] [address] [place]#### [id number] ####Licensed Embalmer: MERLE RODRIGUES ([id number])[facility] ([facility])[address] [place] [address] UROBILINOGEN (MG/DL) IN URINE Normal Normal Normal (0-1) [facility] Comment on above: Performed By: #### L [id number] ####Licensed Embalmer: REJI HAMILTON ([id number])[facility] (SBHLAB)[address]#### [id number] ####Licensed Embalmer: MERLE RODRIGUES ([id number])[facility] ([facility])[address] [place] [address] WBC (LEUKOCYTE) (#/HPF) IN URINE SEDIMENT 26-50 Abnormal 0-5 [facility] Comment on above: Performed By: #### L [id number] ####Licensed Embalmer: REJI HAMILTON ([id number])[facility] ([facility])[address] [place] [address]#### [id number] ####Licensed Embalmer: MERLE RODRIGUES ([id number])[facility] ([facility])[address] [place] [address] COMPREHENSIVE METABOLIC PANE Fernando 01-29-2025 Albumin [Mass/Vol] 3.0 g/dL Low 3.1-4.5 [facility] Comment on above: Performed By: #### L [id number] ####Licensed Embalmer: REJI HAMILTON ([id number])[facility] (HLAB)[address] [place] [address] ALP [Catalytic activity/Vol] 91 U/L Normal 40-150 [facility] Comment on above: Performed By: #### L [id number] ####Licensed Embalmer: REJI HAMILTON ([id number])[facility] (SBHLAB)[address] [place] [address] ALT [Catalytic activity/Vol] U/L Normal <30 [facility] Comment on above: Performed By: #### L [id number] ####Licensed Embalmer: REJI HAMILTON ([id number])[facility] (SBHLAB)[address] [place] [address] Anion gap [Moles/Vol] 10 mmol/L Normal 3-13 [facility] Comment on above: Performed By: #### L [id number] ####Licensed Embalmer: REJI HAMILTON ([id number])[facility] (SBHLAB)[address] AST [Catalytic activity/Vol] 19 U/L Normal <34 [facility] Comment on above: Performed By: #### L [id number] ####Licensed Embalmer: REJI HAMILTON ([id number])[facility]A [place] (SBHLAB)[address] Bilirubin [Mass/Vol] 0.5 mg/dL Normal <1.2 [facility] Comment on above: Performed By: #### L [id number] ####Licensed Embalmer: REJI HAMILTON ([id number])[facility] [place] (SBHLAB)[address] Calcium [Mass/Vol] 8.8 mg/dL Normal 8.8-10.0 [facility] Comment on above: Performed By: #### L [id number] ####Licensed Embalmer: REJI HAMILTON ([id number])[facility]A [place] (SBHLAB)[address] Chloride [Moles/Vol] 106 mmol/L Normal 98-107 [facility] Comment on above: Performed By: #### L [id number] ####Licensed Embalmer: REJI HAMILTON ([id number])[facility]A [place] (SBHLAB)[address] CO2 [Moles/Vol] 31 mmol/L Normal 23-31 [facility] Comment on above: Performed By: #### L [id number] ####Licensed Embalmer: REJI HAMILTON ([id number])[facility]ITALA [place] (SBHLAB)[address] Creatinine [Mass/Vol] 1.04 mg/dL Normal 0.58-1.12 [facility] Comment on above: Performed By: #### L [id number] ####Licensed Embalmer: REJI HAMILTON ([id number])[facility]ITALA [place] (SBHLAB)[address] [place] [address] [place] GLOMERULAR FILTRATION RATE ML/MIN/1.73 SQ M.PREDICTED 55.8 mL/min/1.73m*2 Low >60.0 [facility] Comment on above: Result Comment: Calc ulation based on the Chronic Kidney Disease Epidemiology Collaboration (CKD-EPI) equation refit without adjustment for race Performed By: #### L [id number] ####Licensed Embalmer: REJI HAMILTON ([id number])[facility])[address] [place] [address] [place] Glucose [Mass/Vol] 118 mg/dL High 82-115 [facility] Comment on above: Performed By: #### L [id number] ####Licensed Embalmer: REJI HAMILTON ([id number])[facility])[address] Potassium [Moles/Vol] 3.6 mmol/L Normal 3.5-5.1 [facility] Comment on above: Result Comment: [facility] potassium values may be up to 0.5 mmol/L lower than serum values. Performed By: #### L [id number] ####Licensed Embalmer: REJI HAMILTON ([id number])[facility])[address] Protein [Mass/Vol] 6.6 g/dL Normal 6.4-8.3 [facility] Comment on above: Performed By: #### L [id number] ####Licensed Embalmer: REJI HAMILTON ([id number])[facility] (HLAB)[address] [place] [address] [place] Sodium [Moles/Vol] 147 mmol/L High 136-145 [facility] Comment on above: Performed By: #### L [id number] ####Licensed Embalmer: REJI HAMILTON ([id number])[facility])[address] [place] [address] [place] Urea nitrogen [Mass/Vol] 28 mg/dL High 9-23 [facility] Comment on above: Performed By: #### L [id number] ####Licensed Embalmer: REJI HAMILTON ([id number])[facility] (SBHLAB)[address] [place] [address] CT HEAD WO IV CONTRASTon CT HEAD WO IV CONTRAST Normal [facility] CT Head WO contraston 2024 No acute intracranial abnormalities or significant change from the prior study. Report Dictated on Electronically Signed By: Jeffry Cárdenas MD Electronically Signed Date/Time: 01/29/2025 11:07 AM EDT [facility] Patient Name: SALAZAR SANCHEZ : 1950 Exam Date/Time: 01/29/2025 10:26 Procedure: CT HEAD [...] included paranasal sinuses and orbits are normal. [facility] Jeffry Cárdenas M D - 01/29/2025 Patient Name: SALAZAR COYLE : 1950 Exam Date/Time: 01/29/2025 10:26 Procedure: CT HEAD [...] Electronically Signed Date/Time: 01/29/2025 11:07 AM EDT [facility] Radiology Study observation (narrative) [facility] CT Head WO contrastOrdered B y: Jeffry Cárdenas on 01-29-2025 [facility] [employer] Work Phone: Comprehensive metabolic 1998 panelon 01-29-2025 Albumin [Mass/Vol] 3 g/dL Low 3.1 - 4.5 g/dL [facility] ALP [Catalytic activity/Vol] 91 U/L 40 - 150 U/L [facility] ALT [Catalytic activity/Vol] U/L NINF - 30 U/L [facility] Anion gap [Moles/Vol] 10 mmol/L 3 - 13 mmol/L [facility] AST [Catalytic activity/Vol] 19 U/L NINF - 34 U/L [facility] Bilirubin [Mass/Vol] 0.5 mg/dL NINF - 1.2 mg/dL [facility] Calcium [Mass/Vol] 8.8 mg/dL 8.8 - 10. 0 mg/dL [facility] Chloride [Moles/Vol] 106 mmol/L 98 - 10 7 mmol/L [facility] CO2 [Moles/Vol] 31 mmol/L 23 - 31 mmol/L [facility] Creatinine [Mass/Vol] 1.04 mg/dL 0.58 - 1.12 mg/dL [facility] GFR/1.73 sq M.predicted (S/P/Bld) [Vol rate/Area] 55.8 mL/min Low - PINF [facility] Comment on above: Calculation based on the Chronic Kidney Disease Epidemiology Collaboration (CKD-EPI) equation refit without adjustment for race Glucose [Mass/Vol] 118 mg/dL High 82 - 115 mg/dL [facility] Interpretation and review of laboratory results Abnormal [facility] Potassium [Moles/Vol] 3.6 mmol/L 3.5 - 5.1 mmol/L [facility] Comment on above: Plasma potassium pietro ues may be up to 0.5 mmol/L lower than serum values. Protein [Mass/Vol] 6.6 g/dL 6.4 - 8.3 g/dL [facility] Sodium [Moles/Vol] 147 mmol/L High 136 - 145 mmol/L [facility] Urea nitrogen [Mass/Vol] 28 mg/dL High 9 - 23 mg/dL [facility] ECG 12-LEADon 01-29-2025 ECG 12-LEAD IMPRESSION: Atrial fibrillation Left bundle branch block Electronically Signed On 01-29-2025 11:39:18 EDT by Mario Portillo Normal [facility] ED Nursing Noteon 01-29-2025 ED Nursing Note GRID TRIMMER called to attemp t IV access Normal [facility] ED Provider Noteon ED Provider Note Normal [facility] HEMOGLOBIN A1Con 01-29-2025 Glucose [Mass/Vol] 171 mg/dL Normal [facility] Comment on above: Result Comment: LANA Rangel COMMENTS:If not done within the last 3 [id number] values of 5.7-6.4 percent indicate an increased risk for developing diabetes mellitus. HbA1c values greater than or equal to 6.5 percent are diagnostic of diabetes mellitus. For diagnosis of diabetes in individuals without unequivocal hyperglycemia, results should be confirmed by repeat testing. Performed By: #### L [id number] ####Licensed Embalmer: REJI HAMILTON ([id number])[facility] ([facility])[address] [place] [address] HEMOGLOBIN A1C 7.6 %HbA1C High <5.7 [facility] Comment on above: Result Comment: Norm al less than 5.7%Prediabetes 5.7% to 6.4%Diabetes 6.5% or higher--HgbA1C levels may not be accurate in patients who have renal disease, received recent blood transfusions, are anemic, or who have dyshemoglobinemia. Performed By: #### L [id number] ####Licensed Embalmer: REJI HAMILTON ([id number])[facility] ([facility])[address] [place] [address] LACTIC ACID WITH REFLEXon Lactate [Moles/Vol] 1.3 mmol/L Normal 0.5-2.2 [facility] Comment on above: Performed By: #### L [id number] ####Licensed Embalmer: REJI HAMILTON ([id number])[facility]ITALMelissa [facility] (SBHLAB)[address] [place] [address] Laboratory - Chemistry and C hemistry - challengeon 01-29-2025 Glucose [Mass/Vol] 221 mg/dL High 70 - 100 mg/dL [facility] Glucose [Mass/Vol] 221 mg/dL High 70 - 100 mg/dL [facility] Glucose [Mass/Vol] 139 mg/dL High 70 - 100 mg/dL [facility] Average glucose Estimated from glycated hemoglobin (Bld) [Mass/Vol] 171 mg/dL [facility] Lactate [Moles/Vol] 1.3 mmol/L 0.5 - 2. 2 mmol/L [facility] Laboratory - Hematology and Cell countson 01-29-2025 HbA1c (Bld) [Mass fraction] 7.6 % High [facility] Comment on above: Normal less than 5.7 % Prediabetes 5.7% to 6.4% Diabetes 6.5% or higher --HgbA1C levels may not be accurate in patients who have renal disease, received recent blood transfusions, are anemic, or who have dyshemoglobinemia. No Panel Informationon 01-29 Interpretation and review of laboratory results Abnormal [facility] Performed by: [facility] [address] [place] [address] CLIA ID: [id number] [facility] Interpretation and review of laboratory results Abnormal [facility] Performed by: [facility] [address] [place] [address] CLIA ID: [id number] [facility] Interpretation and review of laboratory results Abnormal [facility] Performed by: [facility] S[facility] [address] [place] [id number] CLIA ID: [id number] [facility] Interpretation and review of laboratory results Abnormal [facility] HbA1c values of 5.7- 6.4 percent indicate an increased risk for developing diabetes mellitus. HbA1c values greater than or equal to 6.5 percent are diagnostic of diabetes mellitus. For diagnosis of diabetes in individuals without unequivocal hyperglycemia, results should be confirmed by repeat testing. [facility] Interpretation and review of laboratory results Normal [facility] P [place] 0 degrees [facility] PA Interval 0 ms [facility] QRS [place] -2 degrees [facility] QRSD Interval 128 ms [facility] QT Interval 409 ms [facility] QTC Interval 466 ms [facility] T Wave [place] 138 degrees [facility] Atrial fibrillation Left bundle branch block Electronically Signed On 01-29-2025 11:39:18 EDT by Mario Portillo CV Mario Albarran MD - 01/29/2025 IMPRESSION: Atrial fibrillation Left bundle branch block Electronically Signed On 01-29-2025 11:39:18 EDT by Mario Portillo [facility] Nursing Noteon 01-29-2025 Nursing Note Normal [facility] URINE CULTUREon 01-29-2025 Bacteria identified Cx Nom (U) Normal [facility] Comment on above: Performed By: #### L [id number] ####Licensed Embalmer: REJI HAMILTON ([id number])[facility] (SBHLAB)[address] [place] [address]#### [id number] ####Licensed Embalmer: MERLE RODRIGUES ([id number])[facility] (SAC[facility])[address] [place] [address] Urinalysis complete panel (U )Ordered By: Genny Leon on 01-29-2025 Bacteria LM.HPF (Urine sed) [#/Area] Few Abnormal Negative /HPF [facility] Bilirubin Ql (U) Negative Negative mg/dL [facility] Clarity (U) Turbid Abnormal Clear [facility] Color (U) Yellow Lt. Yellow [facility] Epithelial cells.squamous LM.HPF (Urine sed) [#/Area] 3-5 [facility] Glucose Ql (U) Normal Normal (<70) mg/dL [facility] Hemoglobin Ql (U) 0.03 mg/dL Abnormal Negative [facility] Interpretation and review of laboratory results Abnormal [facility] Ketones (U) [Mass/Vol] Negative Negat iris mg/dL [facility] Leukocyte esterase Test strip Ql (U) 500 Abnormal Negative Jimenez/uL [facility] Nitrite Ql (U) Negative Negative [facility] pH (U) 8.0 [pH] 5.0 - 8.0 pH [facility] Protein (U) [Mass/Vol] 100 mg/dL Abnormal Negative [facility] RBC LM.HPF (Urine sed) [#/Area] 3-5 Abnormal [facility] Specific gravity (U) [Rel density] 1.015 1.005 - 1.030 [facility] Urobilinogen (U) [Mass/Vol] Normal Normal (0-1) mg/dL [facility] WBC LM.HPF (Urine sed) [#/Area] 26-50 Abnormal [facility] This specimen has be en reflexed to urine culture. [facility] Vital signson 01-29-2025 Heart rate 78 /min bpm [facility] XR Chest Single viewon 01-29 Stable cardiomegaly. No evidence of acute cardiopulmonary disease. Report Dictated on Electronically Signed By: Jeffry Cárdenas MD Electronically Signed Date/Time: 01/29/2025 11:09 AM EDT [facility] EMERGENCY [facility]PARTMENT [employer] Patient Name: SALAZAR SANCHEZ : 1950 [...] spine and shoulders. No acute osseous findings. [facility] Jeffry Cárdenas M D - [...] Electronically Signed Date/Time: 01/29/2025 11:09 AM EDT [facility] Radiology Study observation (narrative) [facility] 30on 10-18-2024 30 Normal [facility] [id number] 10-18-2024 [id number] Normal [facility] [id number] Normal [facility] [id number] Normal [facility] CBC W Auto Differential pane l (Bld)on 10-18-2024 Basophils (Bld) [#/Vol] 0 10*3/uL 0.0 - 0.2 10*3/uL [facility] Basophils/100 WBC (Bld) 0.2 % 0.0 - 2.0 % [facility] Eosinophils (Bld) [#/Vol] 0.2 10*3/uL 0.0 - 0.5 10*3/uL [facility] Eosinophils/100 WBC (Bld) 4.3 % 0.0 - 6.0 % [facility] Erythrocyte distribution width (RBC) [Ratio] 14.6 % 11.5 - 15.0 % [facility] Hematocrit (Bld) [Volume fraction] 33.1 % Low 35.0 - 47.0 % [facility] Hemoglobin (Bld) [Mass/Vol] 10.3 g/dL Low 11.7 - 16.0 g/dL [facility] Immature granulocytes (Bld) [#/Vol] 0 10*3/uL NINF - 0.1 10*3/uL [facility] [employer] Immature granulocytes/100 WBC (Bld) 0.4 % 0.0 - 2.0 % [facility] Interpretation and review of laboratory results Abnormal [facility] Lymphocytes (Bld) [#/Vol] 2.3 10*3/uL 1.0 - 4.3 10*3/uL [facility] Lymphocytes/100 WBC (Bld) 43.5 % 15.0 - 45.0 % [facility] MCH (RBC) [Entitic mass] 30.9 pg 26.0 - 34.0 pg [facility] MCHC (RBC) [Mass/Vol] 31.1 % 30.5 - 36.0 % [facility] MCV (RBC) [Entitic vol] 99.4 fL High 77.0 - 99.0 fL [facility] Monocytes (Bld) [#/Vol] 0.4 10*3/uL 0.0 - 0.9 10*3/uL [facility] Monocytes/100 WBC (Bld) 7.9 % 5.0 - 13.0 % [facility] Neutrophils (Bld) [#/Vol] 2.3 10*3/uL 1.8 - 7.5 10*3/uL [facility] Neutrophils/100 WBC (Bld) 43.7 % 38.0 - 82.0 % [facility] Nucleated RBC/100 WBC (Bld) [Ratio] 0 % [facility] Platelet mean volume (Bld) [Entitic vol] 10.8 fL 9.0 - 12.7 fL [facility] Platelets (Bld) [#/Vol] 198 10*3/uL 140 - 440 10*3/uL [facility] RBC (Bld) [#/Vol] 3.33 10*6/uL Low 3.80 - 5.2 0 10*6/uL [facility] WBC (Bld) [#/Vol] 5.3 10*3/uL 3.6 - 10.7 10*3/uL [facility] CBC WITH AUTO DIFFERENTIALon 10-18-2024 Basophils (Bld) [#/Vol] 0.0 10*3/uL Normal 0.0-0.2 [facility] Comment on above: Performed By: #### L [id number] ####Licensed Embalmer: REJI HAMILTON ([id number])[facility] [place] (SBHLAB)[address] Basophils/100 WBC (Bld) 0.2 % Normal 0.0-2.0 [facility] Comment on above: Performed By: #### L [id number] ####Licensed Embalmer: REJI JOY ([id number])[facility] [place] (SBHLAB)[address] Eosinophils (Bld) [#/Vol] 0.2 10*3/uL Normal 0.0-0.5 [facility] Comment on above: Performed By: #### L [id number] ####Licensed Embalmer: REJI JOY ([id number])[facility] [place] (SBHLAB)[address] [place] [address] Eosinophils/100 WBC (Bld) 4.3 % Normal 0.0-6.0 [facility] Comment on above: Performed By: #### L [id number] ####Licensed Embalmer: REJI HILLEDIN ([id number])[facility] [place] (SBHLAB)[address] Erythrocyte distribution width (RBC) [Ratio] 14.6 % Normal 11.5-15.0 [facility] Comment on above: Performed By: #### L [id number] ####Licensed Embalmer: REJI HAMILTON ([id number])[facility] [place] (SBHLAB)[address] [place] [address] Hematocrit (Bld) [Volume fraction] 33.1 % Low 35.0-47.0 [facility] Comment on above: Performed By: #### L [id number] ####Licensed Embalmer: REJI BAUTISTACAIN ([id number])[facility] [place] (SBHLAB)[address] Hemoglobin (Bld) [Mass/Vol] 10.3 g/dL Low 11.7-16.0 [facility] Comment on above: Performed By: #### L [id number] ####Licensed Embalmer: REJI HAMILTON ([id number])[facility] [place] (SB[facility])[address] IMMATURE GRANS % 0.4 % Normal 0.0-2.0 [facility] Comment on above: Performed By: #### L [id number] ####Licensed Embalmer: REJI HAMILTON ([id number])[facility] (SBHLAB)[address] IMMATURE GRANS ABSOLUTE 0.0 10*3/uL Normal <0.1 [facility] Comment on above: Performed By: #### L [id number] ####Licensed Embalmer: REJI HAMILTON ([id number])[facility] (SBHLAB)[address] Lymphocytes (Bld) [#/Vol] 2.3 10*3/uL Normal 1.0-4.3 [facility] Comment on above: Performed By: #### L [id number] ####Licensed Embalmer: REJI HAMILTON ([id number])[facility] (SBHLAB)[address] Lymphocytes/100 WBC (Bld) 43.5 % Normal 15.0-45.0 [facility] Comment on above: Performed By: #### L [id number] ####Licensed Embalmer: REJI HAMILTON ([id number])[facility] [place] (SBHLAB)[address] MCH (RBC) [Entitic mass] 30.9 pg Normal 26.0-34.0 [facility] Comment on above: Performed By: #### L [id number] ####Licensed Embalmer: REJI HAMILTON ([id number])[facility] [place] (SBHLAB)[address] MCHC 31.1 % Normal 30.5-36.0 [facility] Comment on above: Performed By: #### L [id number] ####Licensed Embalmer: REJI HAMILTON ([id number])[facility] (SBHLAB)[address] MCV (RBC) [Entitic vol] 99.4 fL High 77.0-99.0 [facility] Comment on above: Performed By: #### L [id number] ####Licensed Embalmer: REJI HAMILTON ([id number])[facility] (SBHLAB)[address] Monocytes (Bld) [#/Vol] 0.4 10*3/uL Normal 0.0-0.9 [facility] Comment on above: Performed By: #### L [id number] ####Licensed Embalmer: REJI HAMILTON ([id number])[facility] [place] (SBHLAB)[address] Monocytes/100 WBC (Bld) 7.9 % Normal 5.0-13.0 [facility] Comment on above: Performed By: #### L [id number] ####Licensed Embalmer: REJI HAMILTON ([id number])[facility] [place] (SBHLAB)[address] NEUTROPHILS ABSOLUTE 2.3 10*3/uL Normal 1.8-7.5 [facility] Comment on above: Performed By: #### L [id number] ####Licensed Embalmer: REJI HAMILTON ([id number])[facility] [place] (SBHLAB)[address] Neutrophils/100 WBC (Bld) 43.7 % Normal 38.0-82.0 [facility] Comment on above: Performed By: #### L [id number] ####Licensed Embalmer: REJI HAMILTON ([id number])[facility] [place] (SBHLAB)[address] NRBC 0.0 /100 WBCs Normal 0.0-2.0 [facility] Comment on above: Performed By: #### L [id number] ####Licensed Embalmer: REJI HAMILTON ([id number])[facility] [place] (SBHLAB)[address] Platelet mean volume (Bld) [Entitic vol] 10.8 fL Normal 9.0-12.7 [facility] Comment on above: Performed By: #### L [id number] ####Licensed Embalmer: REJI HAMILTON ([id number])[place] STONEN (SBHLAB)[address] Platelets (Bld) [#/Vol] 198 10*3/uL Normal 140-440 [facility] Comment on above: Performed By: #### L [id number] ####Licensed Embalmer: REJI HAMILTON ([id number])[place] STONEN (SBHLAB)[address] RBC (Bld) [#/Vol] 3.33 10*6/uL Low 3.80-5.20 [facility] Comment on above: Performed By: #### L [id number] ####Licensed Embalmer: REJI HAMILTON ([id number])[facility]ITAL[facility]issa ST[facility]EN (SBHLAB)[address] WBC (Bld) [#/Vol] 5.3 10*3/uL Normal 3.6-10.7 [facility] Comment on above: Performed By: #### L [id number] ####Licensed Embalmer: REJI HAMILTON ([id number])[facility]ITALMelissa STONEN (SBHLAB)[address] COMPREHENSIVE METABOLIC PANE Fernando 10-18-2024 Albumin [Mass/Vol] 2.1 g/dL Low 3.4-4.8 [facility] Comment on above: Performed By: #### L AB17, [id number] ####Licensed Embalmer: REJI HAMILTON ([id number])[facility]ITALMelissa STONEN (SBHLAB)[address] ALP [Catalytic activity/Vol] 56 U/L Normal 40-150 [facility] Comment on above: Performed By: #### L AB17, [id number] ####Licensed Embalmer: REJI HAMILTON ([id number])[facility] [place] (SBHLAB)[address] ALT [Catalytic activity/Vol] 9 U/L Normal <30 [facility] Comment on above: Performed By: #### L AB17, [id number] ####Licensed Embalmer: REJI HAMILTON ([id number])[facility]ITALA [place] (SBHLAB)[address] Anion gap [Moles/Vol] 7 mmol/L Normal 3-13 [facility] Comment on above: Performed By: #### L AB17, [id number] ####Licensed Embalmer: REJI HAMILTON ([id number])[facility] [place] (SBHLAB)[address] AST [Catalytic activity/Vol] 20 U/L Normal <34 [facility] Comment on above: Performed By: #### L AB17, [id number] ####Licensed Embalmer: REJI HAMILTON ([id number])[facility] [place] (SBHLAB)[address] Bilirubin [Mass/Vol] 0.2 mg/dL Normal <1.2 [facility] Comment on above: Performed By: #### L AB17, [id number] ####Licensed Embalmer: RJEI HAMILTON ([id number])[facility] [place] (SBHLAB)[address] Calcium [Mass/Vol] 8.0 mg/dL Low 8.8-10.0 [facility] Comment on above: Performed By: #### L AB17, [id number] ####Licensed Embalmer: REJI HAMILTON ([id number])[facility] [place] (SBHLAB)[address] [place] [address] [place] Chloride [Moles/Vol] 110 mmol/L High 98-107 [facility] Comment on above: Performed By: #### L AB17, [id number] ####Licensed Embalmer: REJI HAMILTON ([id number])[facility] [place] (SBHLAB)[address] [place] [address] [place] CO2 [Moles/Vol] 27 mmol/L Normal 23-31 [facility] Comment on above: Performed By: #### L AB17, [id number] ####Licensed Embalmer: REJI HAMILTON ([id number])[facility]ITALMelissa STONEN (SBHLAB)[address] Creatinine [Mass/Vol] 0.77 mg/dL Normal 0.57-1.11 [facility] Comment on above: Performed By: #### L AB17, [id number] ####Licensed Embalmer: REJI HAMILTON ([id number])[facility]ITALMelissa CA[facility]OREHOB[facility] SERVICESN (SBHLAB)[address] GLOMERULAR FILTRATION RATE ML/MIN/1.73 SQ M.PREDICTED 80.1 mL/min/1.73m*2 Normal >60.0 [facility] Comment on above: Result Comment: Calc ulation based on the Chronic Kidney Disease Epidemiology Collaboration (CKD-EPI) equation refit without adjustment for race Performed By: #### L AB17, [id number] ####Licensed Embalmer: REJI HAMILTON ([id number])[facility]ITALMelissa [facility] (SBHLAB)[address] Glucose [Mass/Vol] 178 mg/dL High 82-115 [facility] Comment on above: Performed By: #### L AB17, [id number] ####Licensed Embalmer: REJI HAMILTON ([id number])[facility]ITALMelissa [facility] (SBHLAB)[address] [place] [address] [place] Potassium [Moles/Vol] 4.2 mmol/L Normal 3.5-5.1 [facility] Comment on above: Result Comment: [facility] potassium values may be up to 0.5 mmol/L lower than serum values. Performed By: #### L AB17, [id number] ####Licensed Embalmer: REJI HAMILTON ([id number])[facility]ITALMelissa CA[facility]OREH[facility] SERVICESN (SBHLAB)[address] Protein [Mass/Vol] 5.2 g/dL Low 6.4-8.3 [facility] Comment on above: Performed By: #### L AB17, [id number] ####Licensed Embalmer: REJI CARBALLOCER ([id number])[facility] (SBHLAB)[address] Sodium [Moles/Vol] 144 mmol/L Normal 136-145 [facility] Comment on above: Performed By: #### L AB17, [id number] ####Licensed Embalmer: REJI HILLEfrenCAIN ([id number])[facility] (SBHLAB)[address] Urea nitrogen [Mass/Vol] 29 mg/dL High 9-23 [facility] Comment on above: Performed By: #### L AB17, [id number] ####Licensed Embalmer: REJI BAUTISTACAIN ([id number])[facility] (SBHLAB)[address] Comprehensive metabolic 1998 panelon 10-18-2024 Albumin [Mass/Vol] 2.1 g/dL Low 3.4 - 4.8 g/dL [facility] ALP [Catalytic activity/Vol] 56 U/L 40 - 150 U/L [facility] ALT [Catalytic activity/Vol] 9 U/L [facility] U/L [facility] Anion gap [Moles/Vol] 7 mmol/L 3 - 13 mmol/L [facility] AST [Catalytic activity/Vol] 20 U/L [facility] - 34 U/L [facility] Bilirubin [Mass/Vol] 0.2 mg/dL NINF - 1.2 mg/dL [facility] Calcium [Mass/Vol] 8 mg/dL Low 8.8 - 10. 0 mg/dL [facility] Chloride [Moles/Vol] 110 mmol/L High 98 - 10 7 mmol/L [facility] CO2 [Moles/Vol] 27 mmol/L 23 - 31 mmol/L [facility] Creatinine [Mass/Vol] 0.77 mg/dL 0.57 - 1.11 mg/dL [facility] GFR/1.73 sq M.predicted (S/P/Bld) [Vol rate/Area] 80.1 mL/min - PINF [facility] Glucose [Mass/Vol] 178 mg/dL High 82 - 115 mg/dL [facility] Interpretation and review of laboratory results Abnormal [facility] Potassium [Moles/Vol] 4.2 mmol/L 3.5 - 5.1 mmol/L [facility] Protein [Mass/Vol] 5.2 g/dL Low 6.4 - 8.3 g/dL [facility] Sodium [Moles/Vol] 144 mmol/L 136 - 145 mmol/L [facility] Urea nitrogen [Mass/Vol] 29 mg/dL High 9 - 23 mg/dL [facility] Laboratory - Chemistry and C hemistry - challengeon 10-18-2024 Glucose [Mass/Vol] 163 mg/dL High 70 - 100 mg/dL [facility] Magnesium [Mass/Vol] 2 mg/dL 1.6 - 2 .6 mg/dL [facility] MAGNESIUMon 10-18-2024 Magnesium [Mass/Vol] 2.0 mg/dL Normal 1.6-2.6 [facility] Comment on above: Result Comment: LANA Rangel COMMENTS:Higher values can be expected in females during menses. Performed By: #### L AB17, [id number] ####Licensed Embalmer: REJI HAMILTON ([id number])[facility] ([facility])[address] [place] [address] Magnesium [Mass/Vol]on 10-18 Interpretation and review of laboratory results Normal [facility] No Panel Informationon 10-18 Interpretation and review of laboratory results Abnormal [facility] 30on 10-17-2024 30 Normal [facility] 30 Normal [facility] [id number] 10-17-2024 [id number] Normal [facility] [id number] Normal [facility] [id number] Normal [facility] CBC W Auto Differential pane l (Bld)on 10-17-2024 Basophils (Bld) [#/Vol] 0 10*3/uL 0.0 - 0.2 10*3/uL [facility] Basophils/100 WBC (Bld) 0.5 % 0.0 - 2.0 % [facility] Eosinophils (Bld) [#/Vol] 0.3 10*3/uL 0.0 - 0.5 10*3/uL [facility] Eosinophils/100 WBC (Bld) 4.4 % 0.0 - 6.0 % [facility] Erythrocyte distribution width (RBC) [Ratio] 14.6 % 11.5 - 15.0 % [facility] Hematocrit (Bld) [Volume fraction] 33.8 % Low 35.0 - 47.0 % [facility] Hemoglobin (Bld) [Mass/Vol] 10.7 g/dL Low 11.7 - 16.0 g/dL [facility] Immature granulocytes (Bld) [#/Vol] 0 10*3/uL NINF - 0.1 10*3/uL [facility] Immature granulocytes/100 WBC (Bld) 0.4 % 0.0 - 2.0 % [facility] Interpretation and review of laboratory results Abnormal [facility] Lymphocytes (Bld) [#/Vol] 2.6 10*3/uL 1.0 - 4.3 10*3/uL [facility] Lymphocytes/100 WBC (Bld) 44.9 % 15.0 - 45.0 % [facility] MCH (RBC) [Entitic mass] 31.1 pg 26.0 - 34.0 pg [facility] MCHC (RBC) [Mass/Vol] 31.7 % 30.5 - 36.0 % [facility] MCV (RBC) [Entitic vol] 98.3 fL 77.0 - 99.0 fL [facility] Monocytes (Bld) [#/Vol] 0.4 10*3/uL 0.0 - 0.9 10*3/uL [facility] Monocytes/100 WBC (Bld) 7.4 % 5.0 - 13.0 % [facility] Neutrophils (Bld) [#/Vol] 2.4 10*3/uL 1.8 - 7.5 10*3/uL [facility] Neutrophils/100 WBC (Bld) 42.4 % 38.0 - 82.0 % [facility] Nucleated RBC/100 WBC (Bld) [Ratio] 0 % [facility] Platelet mean volume (Bld) [Entitic vol] 11 fL 9.0 - 12.7 fL [facility] Platelets (Bld) [#/Vol] 210 10*3/uL 140 - 440 10*3/uL [facility] RBC (Bld) [#/Vol] 3.44 10*6/uL Low 3.80 - 5.2 0 10*6/uL [facility] WBC (Bld) [#/Vol] 5.7 10*3/uL 3.6 - 10.7 10*3/uL [facility] CBC WITH AUTO DIFFERENTIALon 10-17-2024 Basophils (Bld) [#/Vol] 0.0 10*3/uL Normal 0.0-0.2 [facility] Comment on above: Performed By: #### L [id number] ####Licensed Embalmer: REJI HAMILTON ([id number])[facility] [place] (SBHLAB)[address] Basophils/100 WBC (Bld) 0.5 % Normal 0.0-2.0 [facility] Comment on above: Performed By: #### L [id number] ####Licensed Embalmer: REJI HAMILTON ([id number])[facility] [place] (SBHLAB)[address] Eosinophils (Bld) [#/Vol] 0.3 10*3/uL Normal 0.0-0.5 [facility] Comment on above: Performed By: #### L [id number] ####Licensed Embalmer: REJI HAMILTON ([id number])[facility] [place] (SBHLAB)[address] [place] [address] Eosinophils/100 WBC (Bld) 4.4 % Normal 0.0-6.0 [facility] Comment on above: Performed By: #### L [id number] ####Licensed Embalmer: REJI HAMILTON ([id number])[facility] [place] (SBHLAB)[address] Erythrocyte distribution width (RBC) [Ratio] 14.6 % Normal 11.5-15.0 [facility] Comment on above: Performed By: #### L [id number] ####Licensed Embalmer: REJI HAMILTON ([id number])[facility] [place] (SBHLAB)[address] Hematocrit (Bld) [Volume fraction] 33.8 % Low 35.0-47.0 [facility] Comment on above: Performed By: #### L [id number] ####Licensed Embalmer: REJI BAUTISTACAIN ([id number])[facility] Hemoglobin (Bld) [Mass/Vol] 10.7 g/dL Low 11.7-16.0 [facility] Comment on above: Performed By: #### L [id number] ####Licensed Embalmer: REJI JOY ([id number])[facility] ([facility])[address] IMMATURE GRANS % 0.4 % Normal 0.0-2.0 [facility] Comment on above: Performed By: #### L [id number] ####Licensed Embalmer: REJI HILLEDIN ([id number])[facility] ([facility])[address] IMMATURE GRANS ABSOLUTE 0.0 10*3/uL Normal <0.1 [facility] Comment on above: Performed By: #### L [id number] ####Licensed Embalmer: REJI HILLEDIN ([id number])[facility] ([facility])[address] [place] [address] Lymphocytes (Bld) [#/Vol] 2.6 10*3/uL Normal 1.0-4.3 [facility] Comment on above: Performed By: #### L [id number] ####Licensed Embalmer: REJI HILLEDIN ([id number])[facility] Lymphocytes/100 WBC (Bld) 44.9 % Normal 15.0-45.0 [facility] Comment on above: Performed By: #### L [id number] ####Licensed Embalmer: REJI BAUTISTACAIN ([id number])[facility] ([facility])[address] MCH (RBC) [Entitic mass] 31.1 pg Normal 26.0-34.0 [facility] Comment on above: Performed By: #### L [id number] ####Licensed Embalmer: REJI HILLEfrenCAIN ([id number])[facility] [place] (SBHLAB)[address] MCHC 31.7 % Normal 30.5-36.0 [facility] Comment on above: Performed By: #### L [id number] ####Licensed Embalmer: REJI HILLEDIN ([id number])[facility] [place] (SBHLAB)[address] MCV (RBC) [Entitic vol] 98.3 fL Normal 77.0-99.0 [facility] Comment on above: Performed By: #### L [id number] ####Licensed Embalmer: REJI JOY ([id number])[facility] [place] (SBHLAB)[address] Monocytes (Bld) [#/Vol] 0.4 10*3/uL Normal 0.0-0.9 [facility] Comment on above: Performed By: #### L [id number] ####Licensed Embalmer: REJI BAUTISTACAIN ([id number])[facility] [place] (SBHLAB)[address] Monocytes/100 WBC (Bld) 7.4 % Normal 5.0-13.0 [facility] Comment on above: Performed By: #### L [id number] ####Licensed Embalmer: REJI BAUTISTACAIN ([id number])[facility] [place] (SBHLAB)[address] NEUTROPHILS ABSOLUTE 2.4 10*3/uL Normal 1.8-7.5 [facility] Comment on above: Performed By: #### L [id number] ####Licensed Embalmer: REJI BAUTISTACAIN ([id number])[facility] [place] (SBHLAB)[address] Neutrophils/100 WBC (Bld) 42.4 % Normal 38.0-82.0 [facility] Comment on above: Performed By: #### L [id number] ####Licensed Embalmer: REJI HAMILTON ([id number])[facility] (SBHLAB)[address] NRBC 0.0 /100 WBCs Normal 0.0-2.0 [facility] Comment on above: Performed By: #### L [id number] ####Licensed Embalmer: REJI HAMILTON ([id number])[facility] [place] (SBHLAB)[address] Platelet mean volume (Bld) [Entitic vol] 11.0 fL Normal 9.0-12.7 [facility] Comment on above: Performed By: #### L [id number] ####Licensed Embalmer: REJI HAMILTON ([id number])[facility] (SBHLAB)[address] Platelets (Bld) [#/Vol] 210 10*3/uL Normal 140-440 [facility] Comment on above: Performed By: #### L [id number] ####Licensed Embalmer: REJI HAMILTON ([id number])[facility] (SBHLAB)[address] RBC (Bld) [#/Vol] 3.44 10*6/uL Low 3.80-5.20 [facility] Comment on above: Performed By: #### L [id number] ####Licensed Embalmer: REJI HAMILTON ([id number])[facility] [place] (SBHLAB)[address] [place] [address] [place] WBC (Bld) [#/Vol] 5.7 10*3/uL Normal 3.6-10.7 [facility] Comment on above: Performed By: #### L [id number] ####Licensed Embalmer: REJI HAMILTON ([id number])[facility] (SBHLAB)[address] COMPREHENSIVE METABOLIC PANE Fernando 10-17-2024 Albumin [Mass/Vol] 2.2 g/dL Low 3.4-4.8 [facility] Comment on above: Performed By: #### L ABBridger, LAB17 ####Licensed Embalmer: REJI HAMILTON ([id number])[facility] [place] (SBHLAB)[address] ALP [Catalytic activity/Vol] 56 U/L Normal 40-150 [facility] Comment on above: Performed By: #### L AB103, LAB17 ####Licensed Embalmer: REJI HAMILTON ([id number])[facility] (SBHLAB)[address] ALT [Catalytic activity/Vol] U/L Normal <30 [facility] Comment on above: Performed By: #### L 103, LAB17 ####Licensed Embalmer: REJI HAMILTON ([id number])[facility] (SBHLAB)[address] Anion gap [Moles/Vol] 8 mmol/L Normal 3-13 [facility] Comment on above: Performed By: #### L ABBridger, LAB17 ####Licensed Embalmer: REJI HAMILTON ([id number])[facility] [place] (SBHLAB)[address] AST [Catalytic activity/Vol] 17 U/L Normal <34 [facility] Comment on above: Performed By: #### L ABBridger, LAB17 ####Licensed Embalmer: REJI HAMILTON ([id number])[facility] [place] (SBHLAB)[address] [place] [address] [place] Bilirubin [Mass/Vol] 0.3 mg/dL Normal <1.2 [facility] Comment on above: Performed By: #### L AB103, LAB17 ####Licensed Embalmer: REJI HAMILTON ([id number])[facility] (SBHLAB)[address] Calcium [Mass/Vol] 8.2 mg/dL Low 8.8-10.0 [facility] Comment on above: Performed By: #### L AB103, LAB17 ####Licensed Embalmer: REJI HAMILTON ([id number])[facility] [place] (SBHLAB)[address] Chloride [Moles/Vol] 108 mmol/L High 98-107 [facility] Comment on above: Performed By: #### L AB103, LAB17 ####Licensed Embalmer: REJI HAMILTON ([id number])[facility] [place] (SB[facility]AB)[address] CO2 [Moles/Vol] 27 mmol/L Normal 23-31 [facility] Comment on above: Performed By: #### L AB103, LAB17 ####Licensed Embalmer: REJI HAMILTON ([id number])[facility] [place] (SB[facility]AB)[address] Creatinine [Mass/Vol] 0.76 mg/dL Normal 0.57-1.11 [facility] Comment on above: Performed By: #### L AB103, LAB17 ####Licensed Embalmer: REJI HAMILTON ([id number])[facility] [place] (SB[facility])[address] GLOMERULAR FILTRATION RATE ML/MIN/1.73 SQ M.PREDICTED 81.3 mL/min/1.73m*2 Normal >60.0 [facility] Comment on above: Result Comment: Calc ulation based on the Chronic Kidney Disease Epidemiology Collaboration (CKD-EPI) equation refit without adjustment for race Performed By: #### L AB103, LAB17 ####Licensed Embalmer: REJI HAMILTON ([id number])[facility] [place] (SBHLAB)[address] [place] [address] [place] Glucose [Mass/Vol] 156 mg/dL High 82-115 [facility] Comment on above: Performed By: #### L AB103, LAB17 ####Licensed Embalmer: REJI HAMILTON ([id number])[facility] [place] (SB[facility])[address] Potassium [Moles/Vol] 3.8 mmol/L Normal 3.5-5.1 [facility] Comment on above: Result Comment: [facility] potassium values may be up to 0.5 mmol/L lower than serum values. Performed By: #### L AB103, LAB17 ####Licensed Embalmer: REJI HAMILTON ([id number])[facility] [place] (SB[facility])[address] Protein [Mass/Vol] 5.4 g/dL Low 6.4-8.3 [facility] Comment on above: Performed By: #### L AB103, LAB17 ####Licensed Embalmer: REJI HAMILTON ([id number])[facility] [place] (SB[facility])[address] Sodium [Moles/Vol] 143 mmol/L Normal 136-145 [facility] Comment on above: Performed By: #### L AB103, LAB17 ####Licensed Embalmer: REJI HAMILTON ([id number])[facility] [place] (SB[facility])[address] Urea nitrogen [Mass/Vol] 29 mg/dL High 9-23 [facility] Comment on above: Performed By: #### L AB103, LAB17 ####Licensed Embalmer: REJI HAMILTON ([id number])[facility] [place] (SB[facility])[address] Comprehensive metabolic 1998 panelon 10-17-2024 Albumin [Mass/Vol] 2.2 g/dL Low 3.4 - 4.8 g/dL [facility] ALP [Catalytic activity/Vol] 56 U/L 40 - 150 U/L [facility] ALT [Catalytic activity/Vol] U/L NINF - 30 U/L [facility] Anion gap [Moles/Vol] 8 mmol/L 3 - 13 mmol/L [facility] AST [Catalytic activity/Vol] 17 U/L NINF - 34 U/L [facility] Bilirubin [Mass/Vol] 0.3 mg/dL NINF - 1.2 mg/dL [facility] Calcium [Mass/Vol] 8.2 mg/dL Low 8.8 - 10. 0 mg/dL [facility] Chloride [Moles/Vol] 108 mmol/L High 98 - 10 7 mmol/L [facility] CO2 [Moles/Vol] 27 mmol/L 23 - 31 mmol/L [facility] Creatinine [Mass/Vol] 0.76 mg/dL 0.57 - 1.11 mg/dL [facility] GFR/1.73 sq M.predicted (S/P/Bld) [Vol rate/Area] 81.3 mL/min - PINF [facility] Glucose [Mass/Vol] 156 mg/dL High 82 - 115 mg/dL [facility] Interpretation and review of laboratory results Abnormal [facility] Potassium [Moles/Vol] 3.8 mmol/L 3.5 - 5.1 mmol/L [facility] Protein [Mass/Vol] 5.4 g/dL Low 6.4 - 8.3 g/dL [facility] Sodium [Moles/Vol] 143 mmol/L 136 - 145 mmol/L [facility] Urea nitrogen [Mass/Vol] 29 mg/dL High 9 - 23 mg/dL [facility] Laboratory - Chemistry and C hemistry - challengeon 10-17-2024 Glucose [Mass/Vol] 229 mg/dL High 70 - 100 mg/dL [facility] Glucose [Mass/Vol] 222 mg/dL High 70 - 100 mg/dL [facility] Glucose [Mass/Vol] 175 mg/dL High 70 - 100 mg/dL [facility] Glucose [Mass/Vol] 135 mg/dL High 70 - 100 mg/dL [facility] Magnesium [Mass/Vol] 2 mg/dL 1.6 - 2 .6 mg/dL [facility] MAGNESIUMon 10-17-2024 Magnesium [Mass/Vol] 2.0 mg/dL Normal 1.6-2.6 [facility] Comment on above: Result Comment: LANA Rangel COMMENTS:Higher values can be expected in females during menses. Performed By: #### L AB103, LAB17 ####Licensed Embalmer: REJI HAMILTON ([id number])[facility] ([facility])[address] [place] [address] Magnesium [Mass/Vol]on 10-17 Interpretation and review of laboratory results Normal [facility] No Panel Informationon 10-17 Interpretation and review of laboratory results Abnormal [facility] Interpretation and review of laboratory results Abnormal [facility] Interpretation and review of laboratory results Abnormal [facility] Interpretation and review of laboratory results Abnormal [facility] Nursing Noteon 10-17-2024 Nursing Note Normal [facility] Nursing Note Normal [facility] Progress Noteon 10-17-2024 Progress Note Normal [facility] Progress Note Normal [facility] Progress Note Normal [facility] Progress Note Normal [facility] XR HAND 3+ VIEWS BILATERALon 10-17-2024 XR HAND 3+ VIEWS BILATERAL Normal [facility] XR Hand - bilateral 3 Viewso n 10-17-2024 [facility] EM[facility] RADIOLOGY [facility] RADIOLOGY [facility] Radiology Study observation (narrative) [facility] XR Hand - bilateral 3 ViewsO rdered By: Sascha Guzman on 10-17-2024 [facility] Work Phone: 30on 10-16-2024 30 Normal [facility] [id number] 10-16-2024 [id number] Sent updated notes t o [facility] per TCC request. Await review and response regarding ability to accept. TCC notified. Normal [facility] [id number] Normal [facility] [id number] Normal [facility] C. DIFFICILE BY PCR WITH REF TARIQ TO EIAon 10-16-2024 C. DIFFICILE BY PCR WITH REFLEX TO EIA C. DIFFICILE TOXIN PCR Reference Not Detected Not Detected ORDER COMMENTS: C. difficile infection is unlikely to be present. Methodology: Real-time PCR Normal [facility] Comment on above: Performed By: #### L [id number] ####Licensed Embalmer: MERLE RODRIGUES ([id number])[facility] ([address] C. difficile toxin genes EZIO +probe Ql (Stl)on 10-16-2024 C. difficile toxin B tcdB gene EZIO+probe Ql (Stl) Not detected Not Detected [facility] Interpretation and review of laboratory results Normal [facility] CBC W Auto Differential pane l (Bld)on 10-16-2024 Basophils (Bld) [#/Vol] 0 10*3/uL 0.0 - 0.2 10*3/uL [facility] Basophils/100 WBC (Bld) 0.4 % 0.0 - 2.0 % [facility] Eosinophils (Bld) [#/Vol] 0.3 10*3/uL 0.0 - 0.5 10*3/uL [facility] Eosinophils/100 WBC (Bld) 5 % 0.0 - 6.0 % [facility] Erythrocyte distribution width (RBC) [Ratio] 14.3 % 11.5 - 15.0 % [facility] Hematocrit (Bld) [Volume fraction] 32.9 % Low 35.0 - 47.0 % [facility] Hemoglobin (Bld) [Mass/Vol] 10.5 g/dL Low 11.7 - 16.0 g/dL [facility] Immature granulocytes (Bld) [#/Vol] 0 10*3/uL NINF - 0.1 10*3/uL [facility] Immature granulocytes/100 WBC (Bld) 0.6 % 0.0 - 2.0 % [facility] Interpretation and review of laboratory results Abnormal [facility] Lymphocytes (Bld) [#/Vol] 2.1 10*3/uL 1.0 - 4.3 10*3/uL [facility] Lymphocytes/100 WBC (Bld) 39.8 % 15.0 - 45.0 % [facility] MCH (RBC) [Entitic mass] 31.2 pg 26.0 - 34.0 pg [facility] MCHC (RBC) [Mass/Vol] 31.9 % 30.5 - 36.0 % [facility] MCV (RBC) [Entitic vol] 97.6 fL 77.0 - 99.0 fL [facility] Monocytes (Bld) [#/Vol] 0.4 10*3/uL 0.0 - 0.9 10*3/uL [facility] Monocytes/100 WBC (Bld) 7.6 % 5.0 - 13.0 % [facility] Neutrophils (Bld) [#/Vol] 2.4 10*3/uL 1.8 - 7.5 10*3/uL [facility] Neutrophils/100 WBC (Bld) 46.6 % 38.0 - 82.0 % [facility] Nucleated RBC/100 WBC (Bld) [Ratio] 0 % [facility] Platelet mean volume (Bld) [Entitic vol] 10.6 fL 9.0 - 12.7 fL [facility] Platelets (Bld) [#/Vol] 182 10*3/uL 140 - 440 10*3/uL [facility] RBC (Bld) [#/Vol] 3.37 10*6/uL Low 3.80 - 5.2 0 10*6/uL [facility] WBC (Bld) [#/Vol] 5.2 10*3/uL 3.6 - 10.7 10*3/uL [facility] CBC WITH AUTO DIFFERENTIALon 10-16-2024 Basophils (Bld) [#/Vol] 0.0 10*3/uL Normal 0.0-0.2 [facility] Comment on above: Performed By: #### L [id number] ####Licensed Embalmer: REJI HAMILTON ([id number])[facility] ([facility])[address] Basophils/100 WBC (Bld) 0.4 % Normal 0.0-2.0 [facility] Comment on above: Performed By: #### L [id number] ####Licensed Embalmer: REJI HAMILTON ([id number])[facility] ([facility])[address] [place] [address] [place] Eosinophils (Bld) [#/Vol] 0.3 10*3/uL Normal 0.0-0.5 [facility] Comment on above: Performed By: #### L [id number] ####Licensed Embalmer: REJI HAMILTON ([id number])[facility] ([facility])[address] [place] [address] [place] Eosinophils/100 WBC (Bld) 5.0 % Normal 0.0-6.0 [facility] Comment on above: Performed By: #### L [id number] ####Licensed Embalmer: REJI HAMILTON ([id number])[facility]ITALMelissa [facility] [place] [address] Erythrocyte distribution width (RBC) [Ratio] 14.3 % Normal 11.5-15.0 [facility] Comment on above: Performed By: #### L [id number] ####Licensed Embalmer: REJI HAMILTON ([id number])[facility] ([facility])[address] [place] [address] Hematocrit (Bld) [Volume fraction] 32.9 % Low 35.0-47.0 [facility] Comment on above: Performed By: #### L [id number] ####Licensed Embalmer: REJI HAMILTON ([id number])[facility] ([facility])[address] [place] [address] Hemoglobin (Bld) [Mass/Vol] 10.5 g/dL Low 11.7-16.0 [facility] Comment on above: Performed By: #### L [id number] ####Licensed Embalmer: REJI HAMILTON ([id number])[facility] ([facility])[address] [place] [address] IMMATURE GRANS % 0.6 % Normal 0.0-2.0 [facility] Comment on above: Performed By: #### L [id number] ####Licensed Embalmer: REJI HAMILTON ([id number])[facility] ([facility])[address] [place] [address] IMMATURE GRANS ABSOLUTE 0.0 10*3/uL Normal <0.1 [facility] Comment on above: Performed By: #### L [id number] ####Licensed Embalmer: REJI HAMILTON ([id number])[facility] ([facility])[address] [place] [address] Lymphocytes (Bld) [#/Vol] 2.1 10*3/uL Normal 1.0-4.3 [facility] Comment on above: Performed By: #### L [id number] ####Licensed Embalmer: REJI HAMILTON ([id number])[facility]ITALA [place] (SBHLAB)[address] Lymphocytes/100 WBC (Bld) 39.8 % Normal 15.0-45.0 [facility] Comment on above: Performed By: #### L [id number] ####Licensed Embalmer: REJI HAMILTON ([id number])[facility]ITALA [facility]BRE[facility]OB[facility] SERVICESN (SBHLAB)[address] MCH (RBC) [Entitic mass] 31.2 pg Normal 26.0-34.0 [facility] Comment on above: Performed By: #### L [id number] ####Licensed Embalmer: REJI HAMILTON ([id number])[facility] (SBHLAB)[address] MCHC 31.9 % Normal 30.5-36.0 [facility] Comment on above: Performed By: #### L [id number] ####Licensed Embalmer: REJI HAMILTON ([id number])[facility]A [facility] SERVICESN (SBHLAB)[address] MCV (RBC) [Entitic vol] 97.6 fL Normal 77.0-99.0 [facility] Comment on above: Performed By: #### L [id number] ####Licensed Embalmer: REJI HAMILTON ([id number])[facility] (SBHLAB)[address] [place] [address] Monocytes (Bld) [#/Vol] 0.4 10*3/uL Normal 0.0-0.9 [facility] Comment on above: Performed By: #### L [id number] ####Licensed Embalmer: REJI HAMILTON ([id number])[facility] (SB[facility])[address] Monocytes/100 WBC (Bld) 7.6 % Normal 5.0-13.0 [facility] Comment on above: Performed By: #### L [id number] ####Licensed Embalmer: REJI HAMILTON ([id number])[facility] [place] (SBHLAB)[address] NEUTROPHILS ABSOLUTE 2.4 10*3/uL Normal 1.8-7.5 [facility] Comment on above: Performed By: #### L [id number] ####Licensed Embalmer: REJI HAMILTON ([id number])[facility] [place] (SBHLAB)[address] Neutrophils/100 WBC (Bld) 46.6 % Normal 38.0-82.0 [facility] Comment on above: Performed By: #### L [id number] ####Licensed Embalmer: REJI HAMILTON ([id number])[facility] [place] (SBHLAB)[address] NRBC 0.0 /100 WBCs Normal 0.0-2.0 [facility] Comment on above: Performed By: #### L [id number] ####Licensed Embalmer: REJI HAMILTON ([id number])[facility] [place] (SBHLAB)[address] Platelet mean volume (Bld) [Entitic vol] 10.6 fL Normal 9.0-12.7 [facility] Comment on above: Performed By: #### L [id number] ####Licensed Embalmer: REJI HAMILTON ([id number])[facility] [place] (SBHLAB)[address] Platelets (Bld) [#/Vol] 182 10*3/uL Normal 140-440 [facility] Comment on above: Performed By: #### L [id number] ####Licensed Embalmer: REJI HAMILTON ([id number])[facility] [place] (SBHLAB)[address] [place] [address] [place] RBC (Bld) [#/Vol] 3.37 10*6/uL Low 3.80-5.20 [facility] Comment on above: Performed By: #### L [id number] ####Licensed Embalmer: REJI HAMILTON ([id number])[facility] [place] (SBHLAB)[address] WBC (Bld) [#/Vol] 5.2 10*3/uL Normal 3.6-10.7 [facility] Comment on above: Performed By: #### L [id number] ####Licensed Embalmer: REJI HAMILTON ([id number])[facility] [place] (SBHLAB)[address] COMPREHENSIVE METABOLIC PANE Fernando 10-16-2024 Albumin [Mass/Vol] 2.2 g/dL Low 3.4-4.8 [facility] Comment on above: Performed By: #### L AB103, LAB17 ####Licensed Embalmer: REJI HAMILTON ([id number])[facility] [place] (SBHLAB)[address] ALP [Catalytic activity/Vol] 58 U/L Normal 40-150 [facility] Comment on above: Performed By: #### L AB103, LAB17 ####Licensed Embalmer: REJI HAMILTON ([id number])[facility] [place] (SBHLAB)[address] ALT [Catalytic activity/Vol] U/L Normal <30 [facility] Comment on above: Performed By: #### L AB103, LAB17 ####Licensed Embalmer: REJI HAMILTON ([id number])[facility] [place] (SBHLAB)[address] Anion gap [Moles/Vol] 5 mmol/L Normal 3-13 [facility] Comment on above: Performed By: #### L AB103, LAB17 ####Licensed Embalmer: REJI HAMILTON ([id number])[facility] [place] (SBHLAB)[address] AST [Catalytic activity/Vol] 15 U/L Normal <34 [facility] Comment on above: Performed By: #### L AB103, LAB17 ####Licensed Embalmer: REJI HAMILTON ([id number])[facility] [place] (SBHLAB)[address] Bilirubin [Mass/Vol] 0.3 mg/dL Normal <1.2 [facility] Comment on above: Performed By: #### L AB103, LAB17 ####Licensed Embalmer: REJI BAUTISTACAIN ([id number])[facility] [place] (SBHLAB)[address] Calcium [Mass/Vol] 8.1 mg/dL Low 8.8-10.0 [facility] Comment on above: Performed By: #### L AB103, LAB17 ####Licensed Embalmer: REJI HAMILTON ([id number])[facility]ITALA JAELYNREHOBOTH MCK[facility] CARE SERVICESN (SBHLAB)[address] Chloride [Moles/Vol] 110 mmol/L High 98-107 [facility] Comment on above: Performed By: #### L AB103, LAB17 ####Licensed Embalmer: REJI HAMILTON ([id number])[facility]OSPITALMelissa CASTILLOREHOBOTH MCK[facility] CH[facility] CARE SERVICESN (SBHLAB)[address] [place] [address] [place] CO2 [Moles/Vol] 30 mmol/L Normal 23-31 [facility] Comment on above: Performed By: #### L AB103, LAB17 ####Licensed Embalmer: REJI HAMILTON ([id number])[facility] HOSPITALMelissa STONEN (SBHLAB)[address] Creatinine [Mass/Vol] 0.74 mg/dL Normal 0.57-1.11 [facility] Comment on above: Performed By: #### L AB103, LAB17 ####Licensed Embalmer: REJI HAMILTON ([id number])[facility]A JAELYNREHOBOTH MCK[facility] SERVICESN (SBHLAB)[address] [place] [address] [place] GLOMERULAR FILTRATION RATE ML/MIN/1.73 SQ M.PREDICTED 84.0 mL/min/1.73m*2 Normal >60.0 [facility] Comment on above: Result Comment: Calc ulation based on the Chronic Kidney Disease Epidemiology Collaboration (CKD-EPI) equation refit without adjustment for race Performed By: #### L AB103, LAB17 ####Licensed Embalmer: REJI HAMILTON ([id number])[facility]A [place] (SBHLAB)[address] Glucose [Mass/Vol] 167 mg/dL High 82-115 [facility] Comment on above: Performed By: #### L AB103, LAB17 ####Licensed Embalmer: REJI HAMILTON ([id number])[facility]A [facility] SERVICESN (SBHLAB)[address] Potassium [Moles/Vol] 3.8 mmol/L Normal 3.5-5.1 [facility] Comment on above: Result Comment: [facility] potassium values may be up to 0.5 mmol/L lower than serum values. Performed By: #### L AB103, LAB17 ####Licensed Embalmer: REJI HAMILTON ([id number])[facility] SERVICESN (SBHLAB)[address] Protein [Mass/Vol] 5.4 g/dL Low 6.4-8.3 [facility] Comment on above: Performed By: #### L AB103, LAB17 ####Licensed Embalmer: REJI HAMILTON ([id number])[facility] [place] (SBHLAB)[address] Sodium [Moles/Vol] 145 mmol/L Normal 136-145 [facility] Comment on above: Performed By: #### L AB103, LAB17 ####Licensed Embalmer: REJI HAMILTON ([id number])[facility] [place] (SBHLAB)[address] Urea nitrogen [Mass/Vol] 23 mg/dL Normal 9-23 [facility] Comment on above: Performed By: #### L AB103, LAB17 ####Licensed Embalmer: REJI HAMILTON ([id number])[facility] [place] (SBHLAB)[address] Comprehensive metabolic 1998 panelon 10-16-2024 Albumin [Mass/Vol] 2.2 g/dL Low 3.4 - 4.8 g/dL [facility] ALP [Catalytic activity/Vol] 58 U/L 40 - 150 U/L [facility] ALT [Catalytic activity/Vol] U/L NINF - 30 U/L [facility] Anion gap [Moles/Vol] 5 mmol/L 3 - 13 mmol/L [facility] AST [Catalytic activity/Vol] 15 U/L NINF - 34 U/L [facility] Bilirubin [Mass/Vol] 0.3 mg/dL NINF - 1.2 mg/dL [facility] Calcium [Mass/Vol] 8.1 mg/dL Low 8.8 - 10. 0 mg/dL [facility] Chloride [Moles/Vol] 110 mmol/L High 98 - 10 7 mmol/L [facility] CO2 [Moles/Vol] 30 mmol/L 23 - 31 mmol/L [facility] Creatinine [Mass/Vol] 0.74 mg/dL 0.57 - 1.11 mg/dL [facility] GFR/1.73 sq M.predicted (S/P/Bld) [Vol rate/Area] 84 mL/min - PINF [facility] Glucose [Mass/Vol] 167 mg/dL High 82 - 115 mg/dL [facility] Interpretation and review of laboratory results Abnormal [facility] Potassium [Moles/Vol] 3.8 mmol/L 3.5 - 5.1 mmol/L [facility] Protein [Mass/Vol] 5.4 g/dL Low 6.4 - 8.3 g/dL [facility] Sodium [Moles/Vol] 145 mmol/L 136 - 145 mmol/L [facility] Urea nitrogen [Mass/Vol] 23 mg/dL 9 - 23 mg/dL [facility] Laboratory - Chemistry and C hemistry - challengeon 10-16-2024 Glucose [Mass/Vol] 250 mg/dL High 70 - 100 mg/dL [facility] Glucose [Mass/Vol] 310 mg/dL High 70 - 100 mg/dL [facility] Glucose [Mass/Vol] 220 mg/dL High 70 - 100 mg/dL [facility] Glucose [Mass/Vol] 168 mg/dL High 70 - 100 mg/dL [facility] Magnesium [Mass/Vol] 1.9 mg/dL 1.6 - 2 .6 mg/dL [facility] MAGNESIUMon 10-16-2024 Magnesium [Mass/Vol] 1.9 mg/dL Normal 1.6-2.6 [facility] Comment on above: Result Comment: LANA R COMMENTS:Higher values can be expected in females during menses. Performed By: #### L AB103, LAB17 ####Licensed Embalmer: REJI HAMILTON ([id number])[facility] (SBHLAB)[address] [place] [address] Magnesium [Mass/Vol]on 10-16 Interpretation and review of laboratory results Normal [facility] No Panel Informationon 10-16 Interpretation and review of laboratory results Abnormal [facility] Interpretation and review of laboratory results Abnormal [facility] Interpretation and review of laboratory results Abnormal [facility] Interpretation and review of laboratory results Abnormal [facility] Progress Noteon 10-16-2024 Progress Note Normal [facility] Progress Note Normal [facility] 30on 10-15-2024 30 Normal [facility] [id number] 10-15-2024 [id number] SENT UPDATED NOTES Cherie MAYES via [employer] per [facility] request. Await review and response regarding ability to accept. TCC notified. [facility] [id number] [facility] CBC W Auto Differential pane l (Bld)on 10-15-2024 Basophils (Bld) [#/Vol] 0 10*3/uL 0.0 - 0.2 10*3/uL [facility] Basophils/100 WBC (Bld) 0.2 % 0.0 - 2.0 % [facility] Eosinophils (Bld) [#/Vol] 0.3 10*3/uL 0.0 - 0.5 10*3/uL [facility] Eosinophils/100 WBC (Bld) 6.4 % High 0.0 - 6.0 % [facility] Erythrocyte distribution width (RBC) [Ratio] 14.4 % 11.5 - 15.0 % [facility] Hematocrit (Bld) [Volume fraction] 32.9 % Low 35.0 - 47.0 % [facility] Hemoglobin (Bld) [Mass/Vol] 10.3 g/dL Low 11.7 - 16.0 g/dL [facility] Immature granulocytes (Bld) [#/Vol] 0 10*3/uL NINF - 0.1 10*3/uL [facility] Immature granulocytes/100 WBC (Bld) 0.4 % 0.0 - 2.0 % [facility] Interpretation and review of laboratory results Abnormal [facility] Lymphocytes (Bld) [#/Vol] 1.9 10*3/uL 1.0 - 4.3 10*3/uL [facility] Lymphocytes/100 WBC (Bld) 39.1 % 15.0 - 45.0 % [facility] MCH (RBC) [Entitic mass] 30.9 pg 26.0 - 34.0 pg [facility] MCHC (RBC) [Mass/Vol] 31.3 % 30.5 - 36.0 % [facility] MCV (RBC) [Entitic vol] 98.8 fL 77.0 - 99.0 fL [facility] Monocytes (Bld) [#/Vol] 0.3 10*3/uL 0.0 - 0.9 10*3/uL [facility] Monocytes/100 WBC (Bld) 6.9 % 5.0 - 13.0 % [facility] Neutrophils (Bld) [#/Vol] 2.3 10*3/uL 1.8 - 7.5 10*3/uL [facility] Neutrophils/100 WBC (Bld) 47 % 38.0 - 82.0 % [facility] Nucleated RBC/100 WBC (Bld) [Ratio] 0 % [facility] Platelet mean volume (Bld) [Entitic vol] 11.1 fL 9.0 - 12.7 fL [facility] Platelets (Bld) [#/Vol] 179 10*3/uL 140 - 440 10*3/uL [facility] RBC (Bld) [#/Vol] 3.33 10*6/uL Low 3.80 - 5.2 0 10*6/uL [facility] WBC (Bld) [#/Vol] 4.8 10*3/uL 3.6 - 10.7 10*3/uL [facility] CBC WITH AUTO DIFFERENTIALon 10-15-2024 Basophils (Bld) [#/Vol] 0.0 10*3/uL Normal 0.0-0.2 [facility] Comment on above: Performed By: #### L [id number] ####Licensed Embalmer: REJI HILLEfrenCAIN ([id number])[facility] [place] (SBHLAB)[address] Basophils/100 WBC (Bld) 0.2 % Normal 0.0-2.0 [facility] Comment on above: Performed By: #### L [id number] ####Licensed Embalmer: REJI JOY ([id number])[facility] [place] (SBHLAB)[address] Eosinophils (Bld) [#/Vol] 0.3 10*3/uL Normal 0.0-0.5 [facility] Comment on above: Performed By: #### L [id number] ####Licensed Embalmer: REJI HILLEDIN ([id number])[facility] [place] (SBHLAB)[address] Eosinophils/100 WBC (Bld) 6.4 % High 0.0-6.0 [facility] Comment on above: Performed By: #### L [id number] ####Licensed Embalmer: REJI HILLEDIN ([id number])[facility] [place] (SBAB)[address] Erythrocyte distribution width (RBC) [Ratio] 14.4 % Normal 11.5-15.0 [facility] Comment on above: Performed By: #### L [id number] ####Licensed Embalmer: REJI HILLEDIN ([id number])[facility] [place] (SBHLAB)[address] Hematocrit (Bld) [Volume fraction] 32.9 % Low 35.0-47.0 [facility] Comment on above: Performed By: #### L [id number] ####Licensed Embalmer: REJI BAUTISTACAIN ([id number])[facility] [place] (SBHLAB)[address] Hemoglobin (Bld) [Mass/Vol] 10.3 g/dL Low 11.7-16.0 [facility] Comment on above: Performed By: #### L [id number] ####Licensed Embalmer: REJI HAMILTON ([id number])[facility] [place] (SBHLAB)[address] IMMATURE GRANS % 0.4 % Normal 0.0-2.0 [facility] Comment on above: Performed By: #### L [id number] ####Licensed Embalmer: REJI BAUTISTACAIN ([id number])[facility] [place] (SBHLAB)[address] IMMATURE GRANS ABSOLUTE 0.0 10*3/uL Normal <0.1 [facility] Comment on above: Performed By: #### L [id number] ####Licensed Embalmer: REJI BAUTISTACAIN ([id number])[facility] (SBAB)[address] Lymphocytes (Bld) [#/Vol] 1.9 10*3/uL Normal 1.0-4.3 [facility] Comment on above: Performed By: #### L [id number] ####Licensed Embalmer: REJI HAMILTON ([id number])[facility] (SBHLAB)[address] Lymphocytes/100 WBC (Bld) 39.1 % Normal 15.0-45.0 [facility] Comment on above: Performed By: #### L [id number] ####Licensed Embalmer: REJI BAUTISTACAIN ([id number])[facility] [place] (SBHLAB)[address] MCH (RBC) [Entitic mass] 30.9 pg Normal 26.0-34.0 [facility] Comment on above: Performed By: #### L [id number] ####Licensed Embalmer: REJI HAMILTON ([id number])[facility] BARBREHOB[facility] (SBHLAB)[address] MCHC 31.3 % Normal 30.5-36.0 [facility] Comment on above: Performed By: #### L [id number] ####Licensed Embalmer: REJI HAMILTON ([id number])[facility] [place] (SBHLAB)[address] MCV (RBC) [Entitic vol] 98.8 fL Normal 77.0-99.0 [facility] Comment on above: Performed By: #### L [id number] ####Licensed Embalmer: REJI HAMILTON ([id number])[facility] [place] (SBHLAB)[address] Monocytes (Bld) [#/Vol] 0.3 10*3/uL Normal 0.0-0.9 [facility] Comment on above: Performed By: #### L [id number] ####Licensed Embalmer: REJI HAMILTON ([id number])[facility] [place] (SBHLAB)[address] Monocytes/100 WBC (Bld) 6.9 % Normal 5.0-13.0 [facility] Comment on above: Performed By: #### L [id number] ####Licensed Embalmer: REJI HAMILTON ([id number])[facility] [place] (SBHLAB)[address] [place] [address] NEUTROPHILS ABSOLUTE 2.3 10*3/uL Normal 1.8-7.5 [facility] Comment on above: Performed By: #### L [id number] ####Licensed Embalmer: REJI HAMILTON ([id number])[facility] [place] ([facility])[address] [place] [address] Neutrophils/100 WBC (Bld) 47.0 % Normal 38.0-82.0 [facility] Comment on above: Performed By: #### L [id number] ####Licensed Embalmer: REJI HAMILTON ([id number])[facility] [place] ([facility])[address] [place] [address] NRBC 0.0 /100 WBCs Normal 0.0-2.0 [facility] Comment on above: Performed By: #### L [id number] ####Licensed Embalmer: REJI HAMILTON ([id number])[place] ([facility]AB)[address] Platelet mean volume (Bld) [Entitic vol] 11.1 fL Normal 9.0-12.7 [facility] Comment on above: Performed By: #### L [id number] ####Licensed Embalmer: REJI HAMILTON ([id number])[facility] [place] ([facility])[address] Platelets (Bld) [#/Vol] 179 10*3/uL Normal 140-440 [facility] Comment on above: Performed By: #### L [id number] ####Licensed Embalmer: REJI HAMILTON ([id number])[facility]OSPITALMelissa CASTILLOREHOBOTH MCKINLEY CHRIST[facility]ALTH CARE SERVICESN (SBHLAB)[address] RBC (Bld) [#/Vol] 3.33 10*6/uL Low 3.80-5.20 [facility] Comment on above: Performed By: #### L [id number] ####Licensed Embalmer: REJI HAMILTON ([id number])[facility]ITALA [place] (SBHLAB)[address] WBC (Bld) [#/Vol] 4.8 10*3/uL Normal 3.6-10.7 [facility] Comment on above: Performed By: #### L [id number] ####Licensed Embalmer: REJI HAMILTON ([id number])[facility] [place] (SBHLAB)[address] COMPREHENSIVE METABOLIC PANE Fernando 10-15-2024 Albumin [Mass/Vol] 2.2 g/dL Low 3.4-4.8 [facility] Comment on above: Performed By: #### L AB103, LAB17 ####Licensed Embalmer: REJI HAMILTON ([id number])[facility]A [place] (SBHLAB)[address] [place] [address] [place] ALP [Catalytic activity/Vol] 57 U/L Normal 40-150 [facility] Comment on above: Performed By: #### L AB103, LAB17 ####Licensed Embalmer: REJI HAMILTON ([id number])[facility] [place] (SBHLAB)[address] ALT [Catalytic activity/Vol] U/L Normal <30 [facility] Comment on above: Performed By: #### L AB103, LAB17 ####Licensed Embalmer: REJI HAMILTON ([id number])[facility] [place] (SBHLAB)[address] Anion gap [Moles/Vol] 8 mmol/L Normal 3-13 [facility] Comment on above: Performed By: #### L AB103, LAB17 ####Licensed Embalmer: REJI HAMILTON ([id number])[facility] (SBHLAB)[address] AST [Catalytic activity/Vol] 15 U/L Normal <34 [facility] Comment on above: Performed By: #### L AB103, LAB17 ####Licensed Embalmer: REJI HAMILTON ([id number])[facility]ITALA [facility] (SBHLAB)[address] Bilirubin [Mass/Vol] 0.2 mg/dL Normal <1.2 [facility] Comment on above: Performed By: #### L AB103, LAB17 ####Licensed Embalmer: REJI HAMILTON ([id number])[facility]ITALA [facility] (SBHLAB)[address] Calcium [Mass/Vol] 8.1 mg/dL Low 8.8-10.0 [facility] Comment on above: Performed By: #### L AB103, LAB17 ####Licensed Embalmer: REJI HAMILTON ([id number])[facility] (SBHLAB)[address] Chloride [Moles/Vol] 108 mmol/L High 98-107 [facility] Comment on above: Performed By: #### L AB103, LAB17 ####Licensed Embalmer: REJI HAMILTON ([id number])[facility] (SBHLAB)[address] CO2 [Moles/Vol] 27 mmol/L Normal 23-31 [facility] Comment on above: Performed By: #### L AB103, LAB17 ####Licensed Embalmer: REJI HAMILTON ([id number])[facility] (SBHLAB)[address] Creatinine [Mass/Vol] 0.81 mg/dL Normal 0.57-1.11 [facility] Comment on above: Performed By: #### L AB103, LAB17 ####Licensed Embalmer: REJI HAMILTON ([id number])[facility] ([facility])[address] [place] [address] [place] GLOMERULAR FILTRATION RATE ML/MIN/1.73 SQ M.PREDICTED 75.3 mL/min/1.73m*2 Normal >60.0 [facility] Comment on above: Result Comment: Calc ulation based on the Chronic Kidney Disease Epidemiology Collaboration (CKD-EPI) equation refit without adjustment for race Performed By: #### L AB103, LAB17 ####Licensed Embalmer: REJI HAMILTON ([id number])[facility] (HLAB)[address] [place] [address] [place] Glucose [Mass/Vol] 245 mg/dL High 82-115 [facility] Comment on above: Performed By: #### L AB103, LAB17 ####Licensed Embalmer: REJI HAMILTON ([id number])[facility] (SBHLAB)[address] [place] [address] [place] Potassium [Moles/Vol] 3.9 mmol/L Normal 3.5-5.1 [facility] Comment on above: Result Comment: [facility] potassium values may be up to 0.5 mmol/L lower than serum values. Performed By: #### L AB103, LAB17 ####Licensed Embalmer: REJI HAMILTON ([id number])[facility] [place] (SBHLAB)[address] Protein [Mass/Vol] 5.6 g/dL Low 6.4-8.3 [facility] Comment on above: Performed By: #### L AB103, LAB17 ####Licensed Embalmer: REJI HAMILTON ([id number])[facility] [place] (SBHLAB)[address] Sodium [Moles/Vol] 143 mmol/L Normal 136-145 [facility] Comment on above: Performed By: #### L AB103, LAB17 ####Licensed Embalmer: REJI HAMILTON ([id number])[facility]ITALA [facility] (SBHLAB)[address] Urea nitrogen [Mass/Vol] 31 mg/dL High 9-23 [facility] Comment on above: Performed By: #### L AB103, LAB17 ####Licensed Embalmer: REJI HAMILTON ([id number])[facility] (SBHLAB)[address] CERVICAL SPINE WO IV CONT RASTon 10-15-2024 CT CERVICAL SPINE WO IV CONTRAST Normal [facility] CT Cervical spine WO contras ton 10-15-2024 [facility] EMERGENCY DEPARTMENT RADIOLOGY [facility] RADIOLOGY SYSTEM [facility] Radiology Study observation (narrative) [facility] CT Cervical spine WO contras tOrdered By: Jeffry Cárdenas on 10-15-2024 [facility] Work Phone: Comprehensive metabolic 1998 panelon 10-15-2024 Albumin [Mass/Vol] 2.2 g/dL Low 3.4 - 4.8 g/dL [facility] ALP [Catalytic activity/Vol] 57 U/L 40 - 150 U/L [facility] ALT [Catalytic activity/Vol] U/L NINF - 30 U/L [facility] Anion gap [Moles/Vol] 8 mmol/L 3 - 13 mmol/L [facility] AST [Catalytic activity/Vol] 15 U/L NINF - 34 U/L [facility] Bilirubin [Mass/Vol] 0.2 mg/dL NINF - 1.2 mg/dL [facility] Calcium [Mass/Vol] 8.1 mg/dL Low 8.8 - 10. 0 mg/dL [facility] Chloride [Moles/Vol] 108 mmol/L High 98 - 10 7 mmol/L [facility] CO2 [Moles/Vol] 27 mmol/L 23 - 31 mmol/L [facility] Creatinine [Mass/Vol] 0.81 mg/dL 0.57 - 1.11 mg/dL [facility] GFR/1.73 sq M.predicted (S/P/Bld) [Vol rate/Area] 75.3 mL/min - PINF [facility] Glucose [Mass/Vol] 245 mg/dL High 82 - 115 mg/dL [facility] Interpretation and review of laboratory results Abnormal [facility] Potassium [Moles/Vol] 3.9 mmol/L 3.5 - 5.1 mmol/L [facility] Protein [Mass/Vol] 5.6 g/dL Low 6.4 - 8.3 g/dL [facility] Sodium [Moles/Vol] 143 mmol/L 136 - 145 mmol/L [facility] Urea nitrogen [Mass/Vol] 31 mg/dL High 9 - 23 mg/dL [facility] Laboratory - Chemistry and C hemistry - challengeon 10-15-2024 Glucose [Mass/Vol] 233 mg/dL High 70 - 100 mg/dL [facility] Glucose [Mass/Vol] 214 mg/dL High 70 - 100 mg/dL [facility] Glucose [Mass/Vol] 224 mg/dL High 70 - 100 mg/dL [facility] Magnesium [Mass/Vol] 2 mg/dL 1.6 - 2 .6 mg/dL [facility] MAGNESIUMon 10-15-2024 Magnesium [Mass/Vol] 2.0 mg/dL Normal 1.6-2.6 [facility] Comment on above: Result Comment: ORDE R COMMENTS:Higher values can be expected in females during menses. Performed By: #### L AB103, LAB17 ####Licensed Embalmer: REJI HAMILTON ([id number])[facility] ([facility])[address] [place] [address] Magnesium [Mass/Vol]on 10-15 Interpretation and review of laboratory results Normal [facility] No Panel Informationon 10-15 Interpretation and review of laboratory results Abnormal [facility] Interpretation and review of laboratory results Abnormal [facility] Interpretation and review of laboratory results Abnormal [facility] Nursing Noteon 10-15-2024 Nursing Note Normal [facility] Nursing Note Normal [facility] Nursing Note Normal [facility] Nursing Note 10/15/24 06:00 AM: P atient refused dressing changes this am. Normal [facility] Progress Noteon 10-15-2024 Progress Note Normal [facility] Progress Note Normal [facility] Progress Note Normal [facility] 30on 10-14-2024 30 Normal [facility] [id number] 10-14-2024 [id number] Normal [facility] CALCIUM, IONIZEDon CALCIUM IONIZED 4.40 mg/dL Normal 4.30-5.20 [facility] Comment on above: Performed By: #### L AB54 ####Licensed Embalmer: REJI HAMILTON ([id number])[facility] (SBHLAB)[address] [place] [address] PH, IONIZED CALCIUM 7.40 Normal 7.31-7.46 [facility] Comment on above: Performed By: #### L AB54 ####Licensed Embalmer: REJI HAIMLTON ([id number])[facility] (SBAB)[address] [place] [address] CBC W Auto Differential pane l (Bld)on 10-14-2024 Basophils (Bld) [#/Vol] 0 10*3/uL 0.0 - 0.2 10*3/uL [facility] Basophils/100 WBC (Bld) 0.4 % 0.0 - 2.0 % [facility] Eosinophils (Bld) [#/Vol] 0.3 10*3/uL 0.0 - 0.5 10*3/uL [facility] Eosinophils/100 WBC (Bld) 6.7 % High 0.0 - 6.0 % [facility] Erythrocyte distribution width (RBC) [Ratio] 14.3 % 11.5 - 15.0 % [facility] Hematocrit (Bld) [Volume fraction] 33.7 % Low 35.0 - 47.0 % [facility] Hemoglobin (Bld) [Mass/Vol] 10.6 g/dL Low 11.7 - 16.0 g/dL [facility] Immature granulocytes (Bld) [#/Vol] 0 10*3/uL NINF - 0.1 10*3/uL [facility] Immature granulocytes/100 WBC (Bld) 0.4 % 0.0 - 2.0 % [facility] Interpretation and review of laboratory results Abnormal [facility] Lymphocytes (Bld) [#/Vol] 1.7 10*3/uL 1.0 - 4.3 10*3/uL [facility] Lymphocytes/100 WBC (Bld) 37 % 15.0 - 45.0 % [facility] MCH (RBC) [Entitic mass] 31.1 pg 26.0 - 34.0 pg [facility] MCHC (RBC) [Mass/Vol] 31.5 % 30.5 - 36.0 % [facility] MCV (RBC) [Entitic vol] 98.8 fL 77.0 - 99.0 fL [facility] Monocytes (Bld) [#/Vol] 0.4 10*3/uL 0.0 - 0.9 10*3/uL [facility] Monocytes/100 WBC (Bld) 8.3 % 5.0 - 13.0 % [facility] Neutrophils (Bld) [#/Vol] 2.2 10*3/uL 1.8 - 7.5 10*3/uL [facility] Neutrophils/100 WBC (Bld) 47.2 % 38.0 - 82.0 % [facility] Nucleated RBC/100 WBC (Bld) [Ratio] 0 % [facility] Platelet mean volume (Bld) [Entitic vol] 10.9 fL 9.0 - 12.7 fL [facility] Platelets (Bld) [#/Vol] 154 10*3/uL 140 - 440 10*3/uL [facility] RBC (Bld) [#/Vol] 3.41 10*6/uL Low 3.80 - 5.2 0 10*6/uL [facility] WBC (Bld) [#/Vol] 4.6 10*3/uL 3.6 - 10.7 10*3/uL [facility] CBC WITH AUTO DIFFERENTIALon 10-14-2024 Basophils (Bld) [#/Vol] 0.0 10*3/uL Normal 0.0-0.2 [facility] Comment on above: Performed By: #### L [id number] ####Licensed Embalmer: REJI HAMILTON ([id number])[facility] [place] (SBHLAB)[address] Basophils/100 WBC (Bld) 0.4 % Normal 0.0-2.0 [facility] Comment on above: Performed By: #### L [id number] ####Licensed Embalmer: REJI HAMILTON ([id number])[facility] [place] (SBHLAB)[address] Eosinophils (Bld) [#/Vol] 0.3 10*3/uL Normal 0.0-0.5 [facility] Comment on above: Performed By: #### L [id number] ####Licensed Embalmer: REJI HAMILTON ([id number])[facility] [place] (SBHLAB)[address] Eosinophils/100 WBC (Bld) 6.7 % High 0.0-6.0 [facility] Comment on above: Performed By: #### L [id number] ####Licensed Embalmer: REJI HAMILTON ([id number])[facility] [place] (SBAB)[address] [place] [address] Erythrocyte distribution width (RBC) [Ratio] 14.3 % Normal 11.5-15.0 [facility] Comment on above: Performed By: #### L [id number] ####Licensed Embalmer: REJI HAMILTON ([id number])[facility] [place] (SBHLAB)[address] [place] [address] Hematocrit (Bld) [Volume fraction] 33.7 % Low 35.0-47.0 [facility] Comment on above: Performed By: #### L [id number] ####Licensed Embalmer: REJI HAMILTON ([id number])[facility] [place] (SBHLAB)[address] Hemoglobin (Bld) [Mass/Vol] 10.6 g/dL Low 11.7-16.0 [facility] Comment on above: Performed By: #### L [id number] ####Licensed Embalmer: REJI HAMILTON ([id number])[facility] [place] (SBHLAB)[address] IMMATURE GRANS % 0.4 % Normal 0.0-2.0 [facility] Comment on above: Performed By: #### L [id number] ####Licensed Embalmer: REJI HAMILTON ([id number])[facility]A [facility]N (SBHLAB)[address] IMMATURE GRANS ABSOLUTE 0.0 10*3/uL Normal <0.1 [facility] Comment on above: Performed By: #### L [id number] ####Licensed Embalmer: REJI HAMILTON ([id number])[facility]A [facility] (SBHLAB)[address] Lymphocytes (Bld) [#/Vol] 1.7 10*3/uL Normal 1.0-4.3 [facility] Comment on above: Performed By: #### L [id number] ####Licensed Embalmer: REJI HAMILTON ([id number])[facility]A [facility] (SBHLAB)[address] [place] [address] Lymphocytes/100 WBC (Bld) 37.0 % Normal 15.0-45.0 [facility] Comment on above: Performed By: #### L [id number] ####Licensed Embalmer: REJI HAMILTON ([id number])[facility] [place] (SBHLAB)[address] MCH (RBC) [Entitic mass] 31.1 pg Normal 26.0-34.0 [facility] Comment on above: Performed By: #### L [id number] ####Licensed Embalmer: REJI HAMILTON ([id number])[facility] (SBHLAB)[address] MCHC 31.5 % Normal 30.5-36.0 [facility] Comment on above: Performed By: #### L [id number] ####Licensed Embalmer: REJI BAUTISTACAIN ([id number])[facility] [place] (SBHLAB)[address] MCV (RBC) [Entitic vol] 98.8 fL Normal 77.0-99.0 [facility] Comment on above: Performed By: #### L [id number] ####Licensed Embalmer: REJI BAUTISTACAIN ([id number])[facility] [place] (SBHLAB)[address] Monocytes (Bld) [#/Vol] 0.4 10*3/uL Normal 0.0-0.9 [facility] Comment on above: Performed By: #### L [id number] ####Licensed Embalmer: REJI HAMILTON ([id number])[facility] [place] (SBHLAB)[address] Monocytes/100 WBC (Bld) 8.3 % Normal 5.0-13.0 [facility] Comment on above: Performed By: #### L [id number] ####Licensed Embalmer: REJI BAUTISTACAIN ([id number])[facility] [place] (SBHLAB)[address] [place] [address] NEUTROPHILS ABSOLUTE 2.2 10*3/uL Normal 1.8-7.5 [facility] Comment on above: Performed By: #### L [id number] ####Licensed Embalmer: REJI HAMILTON ([id number])[facility] [place] (SBHLAB)[address] Neutrophils/100 WBC (Bld) 47.2 % Normal 38.0-82.0 [facility] Comment on above: Performed By: #### L [id number] ####Licensed Embalmer: REJI HAMILTON ([id number])[facility] [place] (SBHLAB)[address] NRBC 0.0 /100 WBCs Normal 0.0-2.0 [facility] Comment on above: Performed By: #### L [id number] ####Licensed Embalmer: REJI HAMILTON ([id number])[place] (SBHLAB)[address] Platelet mean volume (Bld) [Entitic vol] 10.9 fL Normal 9.0-12.7 [facility] Comment on above: Performed By: #### L [id number] ####Licensed Embalmer: REJI HAMILTON ([id number])[facility] [place] (SBHLAB)[address] Platelets (Bld) [#/Vol] 154 10*3/uL Normal 140-440 [facility] Comment on above: Performed By: #### L [id number] ####Licensed Embalmer: REJI HAMILTON ([id number])[facility] [place] (SBHLAB)[address] RBC (Bld) [#/Vol] 3.41 10*6/uL Low 3.80-5.20 [facility] Comment on above: Performed By: #### L [id number] ####Licensed Embalmer: REJI HAMILTON ([id number])[facility]OSPITALMelissa [place] (SBHLAB)[address] WBC (Bld) [#/Vol] 4.6 10*3/uL Normal 3.6-10.7 [facility] Comment on above: Performed By: #### L [id number] ####Licensed Embalmer: REJI HAMILTON ([id number])[facility] [place] (SBHLAB)[address] COMPREHENSIVE METABOLIC PANE Fernando 10-14-2024 Albumin [Mass/Vol] 2.2 g/dL Low 3.4-4.8 [facility] Comment on above: Performed By: #### L AB103, LAB17, KHQ366 ####Licensed Embalmer: REJI HAMILTON ([id number])[facility] [place] (SBHLAB)[address] ALP [Catalytic activity/Vol] 59 U/L Normal 40-150 [facility] Comment on above: Performed By: #### L AB103, LAB17, ZCW042 ####Licensed Embalmer: REJI HAMILTON ([id number])[facility] JAELYNREHOB[facility] SERVICESN (SBHLAB)[address] ALT [Catalytic activity/Vol] U/L Normal <30 [facility] Comment on above: Performed By: #### L AB103, LAB17, [id number] ####Licensed Embalmer: REJI HAMILTON ([id number])[facility] (SBHLAB)[address] Anion gap [Moles/Vol] 9 mmol/L Normal 3-13 [facility] Comment on above: Performed By: #### Gómez ABBridger, LAB17, [id number] ####Licensed Embalmer: REIJ HAMILTON ([id number])[facility] (SBHLAB)[address] AST [Catalytic activity/Vol] 16 U/L Normal <34 [facility] Comment on above: Performed By: #### Gómez AB103, LAB17, [id number] ####Licensed Embalmer: REJI HAMILTON ([id number])[facility] (SBHLAB)[address] Bilirubin [Mass/Vol] 0.3 mg/dL Normal <1.2 [facility] Comment on above: Performed By: #### L AB103, LAB17, [id number] ####Licensed Embalmer: REJI HAMILTON ([id number])[facility] (SBHLAB)[address] Calcium [Mass/Vol] 8.1 mg/dL Low 8.8-10.0 [facility] Comment on above: Performed By: #### L ABBridger, LAB17, [id number] ####Licensed Embalmer: REJI HAMILTON ([id number])[facility] [place] (SBHLAB)[address] [place] [address] [place] Chloride [Moles/Vol] 109 mmol/L High 98-107 [facility] Comment on above: Performed By: #### Gómez LEVINE, LAB17, [id number] ####Licensed Embalmer: REJI HAMILTON ([id number])[facility] [place] (SBHLAB)[address] [place] [address] [place] CO2 [Moles/Vol] 26 mmol/L Normal 23-31 [facility] Comment on above: Performed By: #### Gómez LEVINE, LAB17, [id number] ####Licensed Embalmer: REJI HAMILTON ([id number])[facility]OSPITALMelissa CASTILLOREHOBOTH M[facility] SERVICESN (SBHLAB)[address] Creatinine [Mass/Vol] 0.78 mg/dL Normal 0.57-1.11 [facility] Comment on above: Performed By: #### Gómez LEVINE, LAB17, [id number] ####Licensed Embalmer: REJI HAMILTON ([id number])[facility]ITALMelissa CASTILLOREHOB[facility] SERVICESN (SBHLAB)[address] [place] [address] [place] GLOMERULAR FILTRATION RATE ML/MIN/1.73 SQ M.PREDICTED 78.8 mL/min/1.73m*2 Normal >60.0 [facility] Comment on above: Result Comment: Calc ulation based on the Chronic Kidney Disease Epidemiology Collaboration (CKD-EPI) equation refit without adjustment for race Performed By: #### Gómez LEVINE, LAB17, [id number] ####Licensed Embalmer: REJI HAMILTON ([id number])[facility]ITALMelissa [place] (SBHLAB)[address] [place] [address] [place] Glucose [Mass/Vol] 171 mg/dL High 82-115 [facility] Comment on above: Performed By: #### Gómez LEVINE, LAB17, [id number] ####Licensed Embalmer: REJI HAMILTON ([id number])[facility] HOSPITALMelissa BARBREHOB[facility] (SBHLAB)[address] [place] [address] [place] Potassium [Moles/Vol] 4.0 mmol/L Normal 3.5-5.1 [facility] Comment on above: Result Comment: [facility] potassium values may be up to 0.5 mmol/L lower than serum values. Performed By: #### L AB103, LAB17, [id number] ####Licensed Embalmer: REJI HAMILTON ([id number])[facility] (SBHLAB)[address] Protein [Mass/Vol] 5.5 g/dL Low 6.4-8.3 [facility] Comment on above: Performed By: #### L AB103, LAB17, [id number] ####Licensed Embalmer: REJI HAMILTON ([id number])[facility] (SBHLAB)[address] Sodium [Moles/Vol] 144 mmol/L Normal 136-145 [facility] Comment on above: Performed By: #### Gómez LEVINE, LAB17, [id number] ####Licensed Embalmer: REJI HAMILTON ([id number])[facility] (SBHLAB)[address] Urea nitrogen [Mass/Vol] 32 mg/dL High 9-23 [facility] Comment on above: Performed By: #### L AB103, LAB17, MVI345 ####Licensed Embalmer: REJI HAMILTON ([id number])[facility] (SBHLAB)[address] [place] [address] Calcium.ionized [Moles/Vol]o n 10-14-2024 Calcium.ionized (Bld) [Moles/Vol] 4.4 mg/dL 4.30 - 5.20 mg/dL [facility] Interpretation and review of laboratory results Normal [facility] PH, IONIZED CALCIUM 7.4 7.31 - 7.46 [facility] Comprehensive metabolic 1998 panelon 10-14-2024 Albumin [Mass/Vol] 2.2 g/dL Low 3.4 - 4.8 g/dL [facility] ALP [Catalytic activity/Vol] 59 U/L 40 - 150 U/L [facility] ALT [Catalytic activity/Vol] U/L NINF - 30 U/L [facility] Anion gap [Moles/Vol] 9 mmol/L 3 - 13 mmol/L [facility] AST [Catalytic activity/Vol] 16 U/L NINF - 34 U/L [facility] Bilirubin [Mass/Vol] 0.3 mg/dL NINF - 1.2 mg/dL [facility] Calcium [Mass/Vol] 8.1 mg/dL Low 8.8 - 10. 0 mg/dL [facility] Chloride [Moles/Vol] 109 mmol/L High 98 - 10 7 mmol/L [facility] CO2 [Moles/Vol] 26 mmol/L 23 - 31 mmol/L [facility] Creatinine [Mass/Vol] 0.78 mg/dL 0.57 - 1.11 mg/dL [facility] GFR/1.73 sq M.predicted (S/P/Bld) [Vol rate/Area] 78.8 mL/min - PINF [facility] Glucose [Mass/Vol] 171 mg/dL High 82 - 115 mg/dL [facility] Interpretation and review of laboratory results Abnormal [facility] Potassium [Moles/Vol] 4 mmol/L 3.5 - 5.1 mmol/L [facility] Protein [Mass/Vol] 5.5 g/dL Low 6.4 - 8.3 g/dL [facility] Sodium [Moles/Vol] 144 mmol/L 136 - 145 mmol/L [facility] Urea nitrogen [Mass/Vol] 32 mg/dL High 9 - 23 mg/dL [facility] Consulton 10-14-2024 Consult Vancomycin therapy h as been discontinued by Dr Rivera on 10-14-24. Thank you for the consult. Pharmacy signing off for vancomycin dosing. Anbial Celeste [facility], Date: 10/14/24 Time: 2:56 PM Normal [facility] Consult Normal [facility] Laboratory - Chemistry and C hemistry - challengeon 10-14-2024 Glucose [Mass/Vol] 252 mg/dL High 70 - 100 mg/dL [facility] [facility] Glucose [Mass/Vol] 265 mg/dL High 70 - 100 mg/dL [facility] Glucose [Mass/Vol] 201 mg/dL High 70 - 100 mg/dL [facility] Magnesium [Mass/Vol] 1.9 mg/dL 1.6 - 2 .6 mg/dL [facility] Laboratory - Drug toxicology on 10-14-2024 Vancomycin [Mass/Vol] 21.7 ug/mL [facility] MAGNESIUMon 10-14-2024 Magnesium [Mass/Vol] 1.9 mg/dL Normal 1.6-2.6 [facility] Comment on above: Result Comment: LANA Rangel COMMENTS:Higher values can be expected in females during menses. Performed By: #### L AB103, LAB17, [id number] ####Licensed Embalmer: REJI HAMILTON ([id number])[facility] (SBHLAB)[address] Magnesium [Mass/Vol]on 10-14 [facility] No Panel Informationon 10-14 Interpretation and review of laboratory results Abnormal [facility] Interpretation and review of laboratory results Abnormal [facility] Interpretation and review of laboratory results Abnormal [facility] Interpretation and review of laboratory results Normal [facility] Nursing Noteon 10-14-2024 Nursing Note Report called to Menendez RN on [address]. Fabiana Roman RN 10/14/2024 6:14 PM Normal [facility] Nursing Note Unable to do MRI scr eening at this time. Patient confused and refusing to answer questions. Fabiana Roman RN 10/14/2024 4:38 PM Normal [facility] Nursing Note Patient continues to refuse hygiene care at this time. "Doesn't want to be touched: Fabiana Roman RN 10/14/2024 4:15 PM Normal [facility] Nursing Note Patient refusing mor wilma care. Refusing assessment. Refusing wound care. Fabiana Roman RN 10/14/2024 8:43 AM Normal [facility] PHOSPHORUSon 10-14-2024 Phosphate [Mass/Vol] 2.6 mg/dL Normal 2.3-4.7 [facility] Comment on above: Performed By: #### L AB103, LAB17, [id number] ####Licensed Embalmer: REJI HAMILTON ([id number])[facility] (SBHLAB)[address] [place] [address] [place] Phosphate [Moles/Vol]on 09-30 Phosphate [Mass/Vol] 2.6 mg/dL 2.3 - 4 .7 mg/dL [facility] Progress Noteon 10-14-2024 Progress Note Normal [facility] Progress Note Normal [facility] Progress Note Normal [facility] VANCOMYCIN, RANDOMon 025 VANCOMYCIN 21.7 ug/mL Normal [facility] Comment on above: Result Comment: LANA Rangel COMMENTS:Ok to draw with morning labs. Please draw at least 2 hours after Vancomycin infusion has stopped.Toxicity is seen at concentrations >80-100 ug/mLTherapeutic (Peak) range: 20-40Therapeutic (Trough) range: 5-10 Performed By: #### L AB40 ####Licensed Embalmer: REJI HAMILTON ([id number])[facility] ([facility])[address] [place] [address] 30on 10-13-2024 30 Normal [facility] [id number] 10-13-2024 [id number] Normal [facility] Bacteria identified Cx Nom ( Bld)Ordered By: Melody Nunez on 10-13-2024 Interpretation and review of laboratory results Abnormal [facility] CALCIUM, IONIZEDon CALCIUM IONIZED 4.30 mg/dL Normal 4.30-5.20 [facility] Comment on above: Performed By: #### L AB54 ####Licensed Embalmer: REJI HAMILTON ([id number])[facility] [place] [address] PH, IONIZED CALCIUM 7.41 Normal 7.31-7.46 [facility] Comment on above: Performed By: #### L AB54 ####Licensed Embalmer: REJI HAMILTON ([id number])[facility] [place] [address] CBC W Auto Differential pane l (Bld)on 10-13-2024 Basophils (Bld) [#/Vol] 0 10*3/uL 0.0 - 0.2 10*3/uL [facility] Basophils/100 WBC (Bld) 0.5 % 0.0 - 2.0 % [facility] Eosinophils (Bld) [#/Vol] 0.3 10*3/uL 0.0 - 0.5 10*3/uL [facility] Eosinophils/100 WBC (Bld) 5.9 % 0.0 - 6.0 % [facility] Erythrocyte distribution width (RBC) [Ratio] 14.5 % 11.5 - 15.0 % [facility] Hematocrit (Bld) [Volume fraction] 32.8 % Low 35.0 - 47.0 % [facility] Hemoglobin (Bld) [Mass/Vol] 10.5 g/dL Low 11.7 - 16.0 g/dL [facility] Immature granulocytes (Bld) [#/Vol] 0 10*3/uL NINF - 0.1 10*3/uL [facility] Immature granulocytes/100 WBC (Bld) 0.2 % 0.0 - 2.0 % [facility] Interpretation and review of laboratory results Abnormal [facility] Lymphocytes (Bld) [#/Vol] 1.5 10*3/uL 1.0 - 4.3 10*3/uL [facility] Lymphocytes/100 WBC (Bld) 33 % 15.0 - 45.0 % [facility] MCH (RBC) [Entitic mass] 31.3 pg 26.0 - 34.0 pg [facility] MCHC (RBC) [Mass/Vol] 32 % 30.5 - 36.0 % [facility] MCV (RBC) [Entitic vol] 97.9 fL 77.0 - 99.0 fL [facility] Monocytes (Bld) [#/Vol] 0.3 10*3/uL 0.0 - 0.9 10*3/uL [facility] Monocytes/100 WBC (Bld) 7 % 5.0 - 13.0 % [facility] Neutrophils (Bld) [#/Vol] 2.4 10*3/uL 1.8 - 7.5 10*3/uL [facility] Neutrophils/100 WBC (Bld) 53.4 % 38.0 - 82.0 % [facility] Nucleated RBC/100 WBC (Bld) [Ratio] 0 % [facility] Platelet mean volume (Bld) [Entitic vol] 11.3 fL 9.0 - 12.7 fL [facility] Platelets (Bld) [#/Vol] 152 10*3/uL 140 - 440 10*3/uL [facility] RBC (Bld) [#/Vol] 3.35 10*6/uL Low 3.80 - 5.2 0 10*6/uL [facility] WBC (Bld) [#/Vol] 4.4 10*3/uL 3.6 - 10.7 10*3/uL [facility] CBC WITH AUTO DIFFERENTIALon 10-13-2024 Basophils (Bld) [#/Vol] 0.0 10*3/uL Normal 0.0-0.2 [facility] Comment on above: Performed By: #### L [id number] ####Licensed Embalmer: REJI HAMILTON ([id number])[facility] ([facility])[address] [place] [address] Basophils/100 WBC (Bld) 0.5 % Normal 0.0-2.0 [facility] Comment on above: Performed By: #### L [id number] ####Licensed Embalmer: REJI HAMILTON ([id number])[facility] [place] (SBHLAB)[address] [place] [address] Eosinophils (Bld) [#/Vol] 0.3 10*3/uL Normal 0.0-0.5 [facility] Comment on above: Performed By: #### L [id number] ####Licensed Embalmer: REJI HAMILTON ([id number])[facility] [place] (SBHLAB)[address] [place] [address] Eosinophils/100 WBC (Bld) 5.9 % Normal 0.0-6.0 [facility] Comment on above: Performed By: #### L [id number] ####Licensed Embalmer: REJI HAMILTON ([id number])[facility] [place] (SBAB)[address] [place] [address] Erythrocyte distribution width (RBC) [Ratio] 14.5 % Normal 11.5-15.0 [facility] Comment on above: Performed By: #### L [id number] ####Licensed Embalmer: REJI HAMILTON ([id number])[facility] [place] (SBHLAB)[address] Hematocrit (Bld) [Volume fraction] 32.8 % Low 35.0-47.0 [facility] Comment on above: Performed By: #### L [id number] ####Licensed Embalmer: REJI HAMILTON ([id number])[facility] (SB[facility]AB)[address] Hemoglobin (Bld) [Mass/Vol] 10.5 g/dL Low 11.7-16.0 [facility] Comment on above: Performed By: #### L [id number] ####Licensed Embalmer: REJI HAMILTON ([id number])[facility] (HLAB)[address] [place] [address] IMMATURE GRANS % 0.2 % Normal 0.0-2.0 [facility] Comment on above: Performed By: #### L [id number] ####Licensed Embalmer: REJI HAMILTON ([id number])[facility] (SB[facility])[address] [place] [address] IMMATURE GRANS ABSOLUTE 0.0 10*3/uL Normal <0.1 [facility] Comment on above: Performed By: #### L [id number] ####Licensed Embalmer: REJI HAMILTON ([id number])[facility] (SBAB)[address] [place] [address] Lymphocytes (Bld) [#/Vol] 1.5 10*3/uL Normal 1.0-4.3 [facility] Comment on above: Performed By: #### L [id number] ####Licensed Embalmer: REJI HAMILTON ([id number])[facility] (SBHLAB)[address] [place] [address] [place] Lymphocytes/100 WBC (Bld) 33.0 % Normal 15.0-45.0 [facility] Comment on above: Performed By: #### L [id number] ####Licensed Embalmer: REJI HAMILTON ([id number])[facility] [place] (SBHLAB)[address] MCH (RBC) [Entitic mass] 31.3 pg Normal 26.0-34.0 [facility] Comment on above: Performed By: #### L [id number] ####Licensed Embalmer: REJI HAMILTON ([id number])[facility] [place] (SBHLAB)[address] MCHC 32.0 % Normal 30.5-36.0 [facility] Comment on above: Performed By: #### L [id number] ####Licensed Embalmer: REJI HAMILTON ([id number])[facility] [place] (SBHLAB)[address] MCV (RBC) [Entitic vol] 97.9 fL Normal 77.0-99.0 [facility] Comment on above: Performed By: #### L [id number] ####Licensed Embalmer: REJI HAMILTON ([id number])[facility] [place] (SBHLAB)[address] Monocytes (Bld) [#/Vol] 0.3 10*3/uL Normal 0.0-0.9 [facility] Comment on above: Performed By: #### L [id number] ####Licensed Embalmer: REJI HAMILTON ([id number])[facility] [place] (SBHLAB)[address] [place] [address] Monocytes/100 WBC (Bld) 7.0 % Normal 5.0-13.0 [facility] Comment on above: Performed By: #### L [id number] ####Licensed Embalmer: REJI HAMILTON ([id number])[facility] [place] (SBHLAB)[address] NEUTROPHILS ABSOLUTE 2.4 10*3/uL Normal 1.8-7.5 [facility] Comment on above: Performed By: #### L [id number] ####Licensed Embalmer: REJI HAMILTON ([id number])[facility] [place] (SB[facility]AB)[address] Neutrophils/100 WBC (Bld) 53.4 % Normal 38.0-82.0 [facility] Comment on above: Performed By: #### L [id number] ####Licensed Embalmer: REJI HAMILTON ([id number])[facility] [place] (SBHLAB)[address] NRBC 0.0 /100 WBCs Normal 0.0-2.0 [facility] Comment on above: Performed By: #### L [id number] ####Licensed Embalmer: REJI HAMILTON ([id number])[facility] [place] (SBHLAB)[address] Platelet mean volume (Bld) [Entitic vol] 11.3 fL Normal 9.0-12.7 [facility] Comment on above: Performed By: #### L [id number] ####Licensed Embalmer: REJI HAMILTON ([id number])[facility] [place] (SBHLAB)[address] [place] [address] [place] Platelets (Bld) [#/Vol] 152 10*3/uL Normal 140-440 [facility] Comment on above: Performed By: #### L [id number] ####Licensed Embalmer: REJI HAMILTON ([id number])[facility] [place] (SBHLAB)[address] [place] [address] [place] RBC (Bld) [#/Vol] 3.35 10*6/uL Low 3.80-5.20 [facility] Comment on above: Performed By: #### L [id number] ####Licensed Embalmer: REJI HAMILTON ([id number])[facility] [place] (SB[facility]AB)[address] [place] [address] [place] WBC (Bld) [#/Vol] 4.4 10*3/uL Normal 3.6-10.7 [facility] Comment on above: Performed By: #### L [id number] ####Licensed Embalmer: REJI HAMILTON ([id number])[facility] [place] (SB[facility]AB)[address] COMPREHENSIVE METABOLIC PANE Fernando 10-13-2024 Albumin [Mass/Vol] 2.1 g/dL Low 3.4-4.8 [facility] Comment on above: Performed By: #### L AB113, XSB475, LAB17 ####Licensed Embalmer: REJI HAMILTON ([id number])[facility]OSPITALMelissa [facility] (SB[facility])[address] ALP [Catalytic activity/Vol] 61 U/L Normal 40-150 [facility] Comment on above: Performed By: #### L AB113, KYV203, LAB17 ####Licensed Embalmer: REJI HAMILTON ([id number])[facility] (SBHLAB)[address] ALT [Catalytic activity/Vol] 7 U/L Normal <30 [facility] Comment on above: Performed By: #### L AB113, GDR532, LAB17 ####Licensed Embalmer: REJI HAMILTON ([id number])[facility] (SBHLAB)[address] Anion gap [Moles/Vol] 9 mmol/L Normal 3-13 [facility] Comment on above: Performed By: #### L AB113, IED832, LAB17 ####Licensed Embalmer: REJI HAMILTON ([id number])[facility] (SB[facility]AB)[address] AST [Catalytic activity/Vol] 18 U/L Normal <34 [facility] Comment on above: Performed By: #### L AB113, CVL176, LAB17 ####Licensed Embalmer: REJI HAMILTON ([id number])[facility] (SB[facility]AB)[address] Bilirubin [Mass/Vol] 0.3 mg/dL Normal <1.2 [facility] Comment on above: Performed By: #### L AB113, SXX278, LAB17 ####Licensed Embalmer: REJI HAMILTON ([id number])[facility] [place] (SBHLAB)[address] Calcium [Mass/Vol] 8.0 mg/dL Low 8.8-10.0 [facility] Comment on above: Performed By: #### L AB113, CEM088, LAB17 ####Licensed Embalmer: REJI HAMILTON ([id number])[facility] [place] (SB[facility]AB)[address] Chloride [Moles/Vol] 107 mmol/L Normal 98-107 [facility] Comment on above: Performed By: #### L AB113, PAT673, LAB17 ####Licensed Embalmer: REJI HAMILTON ([id number])[facility] [place] (SB[facility]AB)[address] CO2 [Moles/Vol] 26 mmol/L Normal 23-31 [facility] Comment on above: Performed By: #### L AB113, LRF521, LAB17 ####Licensed Embalmer: REJI HAMILTON ([id number])[facility]ITALMelissa [place] (SB[facility]AB)[address] Creatinine [Mass/Vol] 0.82 mg/dL Normal 0.57-1.11 [facility] Comment on above: Performed By: #### L AB113, IAP108, LAB17 ####Licensed Embalmer: REJI HAMILTON ([id number])[facility]OS[facility]ITALMelissa [place] (SBHLAB)[address] [place] [address] [place] GLOMERULAR FILTRATION RATE ML/MIN/1.73 SQ M.PREDICTED 74.2 mL/min/1.73m*2 Normal >60.0 [facility] Comment on above: Result Comment: Calc ulation based on the Chronic Kidney Disease Epidemiology Collaboration (CKD-EPI) equation refit without adjustment for race Performed By: #### L AB113, LSR590, LAB17 ####Licensed Embalmer: REJI HAMILTON ([id number])[facility] [place] (SBHLAB)[address] [place] [address] [place] Glucose [Mass/Vol] 299 mg/dL High 82-115 [facility] Comment on above: Performed By: #### L AB113, MIC684, LAB17 ####Licensed Embalmer: REJI HAMILTON ([id number])[facility] (SBHLAB)[address] Potassium [Moles/Vol] 3.9 mmol/L Normal 3.5-5.1 [facility] Comment on above: Result Comment: [facility] potassium values may be up to 0.5 mmol/L lower than serum values. Performed By: #### L AB113, ZBU800, LAB17 ####Licensed Embalmer: REJI HAMILTON ([id number])[facility] (SBAB)[address] Protein [Mass/Vol] 5.6 g/dL Low 6.4-8.3 [facility] Comment on above: Performed By: #### L AB113, JWR126, LAB17 ####Licensed Embalmer: REJI HAMILTON ([id number])[facility] ([facility]AB)[address] Sodium [Moles/Vol] 142 mmol/L Normal 136-145 [facility] Comment on above: Performed By: #### L AB113, QQA660, LAB17 ####Licensed Embalmer: REJI HAMILTON ([id number])[facility] (SBHLAB)[address] Urea nitrogen [Mass/Vol] 32 mg/dL High 9-23 [facility] Comment on above: Performed By: #### L AB113, IOS311, LAB17 ####Licensed Embalmer: REJI HAMILTON ([id number])[facility] (HLAB)[address] Calcium.ionized [Moles/Vol]o n 10-13-2024 Calcium.ionized (Bld) [Moles/Vol] 4.3 mg/dL 4.30 - 5.20 mg/dL [facility] Interpretation and review of laboratory results Normal [facility] PH, IONIZED CALCIUM 7.41 7.31 - 7.46 [facility] Comprehensive metabolic 1998 panelon 10-13-2024 Albumin [Mass/Vol] 2.1 g/dL Low 3.4 - 4.8 g/dL [facility] ALP [Catalytic activity/Vol] 61 U/L 40 - 150 U/L [facility] ALT [Catalytic activity/Vol] 7 U/L NINF - 30 U/L [facility] Anion gap [Moles/Vol] 9 mmol/L 3 - 13 mmol/L [facility] AST [Catalytic activity/Vol] 18 U/L NINF - 34 U/L [facility] Bilirubin [Mass/Vol] 0.3 mg/dL NINF - 1.2 mg/dL [facility] Calcium [Mass/Vol] 8 mg/dL Low 8.8 - 10. 0 mg/dL [facility] Chloride [Moles/Vol] 107 mmol/L 98 - 10 7 mmol/L [facility] CO2 [Moles/Vol] 26 mmol/L 23 - 31 mmol/L [facility] Creatinine [Mass/Vol] 0.82 mg/dL 0.57 - 1.11 mg/dL [facility] GFR/1.73 sq M.predicted (S/P/Bld) [Vol rate/Area] 74.2 mL/min - PINF [facility] Glucose [Mass/Vol] 299 mg/dL High 82 - 115 mg/dL [facility] Interpretation and review of laboratory results Abnormal [facility] Potassium [Moles/Vol] 3.9 mmol/L 3.5 - 5.1 mmol/L [facility] Protein [Mass/Vol] 5.6 g/dL Low 6.4 - 8.3 g/dL [facility] Sodium [Moles/Vol] 142 mmol/L 136 - 145 mmol/L [facility] Urea nitrogen [Mass/Vol] 32 mg/dL High 9 - 23 mg/dL [facility] Laboratory - Chemistry and C hemistry - challengeon 10-13-2024 Glucose [Mass/Vol] 295 mg/dL High 70 - 100 mg/dL [facility] Glucose [Mass/Vol] 360 mg/dL High 70 - 100 mg/dL [facility] Glucose [Mass/Vol] 370 mg/dL High 70 - 100 mg/dL [facility] Magnesium [Mass/Vol] 1.9 mg/dL 1.6 - 2 .6 mg/dL [facility] Laboratory - Microbiology an d Antimicrobial susceptibilityOrdered By: Melody Nunez on 10-13-2024 Bacteria identified Cx Nom (Bld) Staphylococcus epidermidis Critically abnormal [facility] MAGNESIUMon 10-13-2024 Magnesium [Mass/Vol] 1.9 mg/dL Normal 1.6-2.6 [facility] Comment on above: Result Comment: LANA R COMMENTS:Higher values can be expected in females during menses. Performed By: #### L AB113, VDX502, LAB17 ####Licensed Embalmer: REJI HAMILTON ([id number])[facility] [place] [address] [place] Magnesium [Mass/Vol]on 10-13 [facility] No Panel Informationon 10-13 Interpretation and review of laboratory results Abnormal [facility] Interpretation and review of laboratory results Abnormal [facility] Interpretation and review of laboratory results Abnormal [facility] Interpretation and review of laboratory results Normal [facility] PHOSPHORUSon 10-13-2024 Phosphate [Mass/Vol] 2.8 mg/dL Normal 2.3-4.7 [facility] Comment on above: Performed By: #### L AB113, NZD957, LAB17 ####Licensed Embalmer: REJI HAMILTON ([id number])[facility] ([facility])[address] [place] [address] [place] Phosphate [Moles/Vol]on 09-30 Phosphate [Mass/Vol] 2.8 mg/dL 2.3 - 4 .7 mg/dL [facility] Progress Noteon 10-13-2024 Progress Note Normal [facility] Progress Note Normal [facility] Progress Note Normal [facility] Progress Note Normal [facility] Progress Note Normal [facility] 30on 10-12-2024 30 Normal [facility] 30 Normal [facility] 30 Normal [facility] Bacteria identified Cx Nom ( Bld)on 10-12-2024 Interpretation and review of laboratory results Abnormal [facility] CALCIUM, IONIZEDon CALCIUM IONIZED 4.10 mg/dL Low 4.30-5.20 [facility] [employer] [facility] Comment on above: Performed By: #### L AB54 ####Licensed Embalmer: REJI HAMILTON ([id number])[facility] (SBHLAB)[address] PH, IONIZED CALCIUM 7.46 Normal 7.31-7.46 [facility] [employer] [facility] Comment on above: Performed By: #### L AB54 ####Licensed Embalmer: REJI HAMILTON ([id number])[facility] (SBHLAB)[address] CBC W Auto Differential pane l (Bld)on 10-12-2024 Basophils (Bld) [#/Vol] 0 10*3/uL 0.0 - 0.2 10*3/uL [facility] [employer] Basophils/100 WBC (Bld) 0.5 % 0.0 - 2.0 % [facility] [employer] Eosinophils (Bld) [#/Vol] 0.3 10*3/uL 0.0 - 0.5 10*3/uL [facility] [employer] Eosinophils/100 WBC (Bld) 7.7 % High 0.0 - 6.0 % [facility] [employer] Erythrocyte distribution width (RBC) [Ratio] 14.6 % 11.5 - 15.0 % [facility] [employer] Hematocrit (Bld) [Volume fraction] 33 % Low 35.0 - 47.0 % [facility] [employer] Hemoglobin (Bld) [Mass/Vol] 10.6 g/dL Low 11.7 - 16.0 g/dL [facility] [employer] Immature granulocytes (Bld) [#/Vol] 0 10*3/uL NINF - 0.1 10*3/uL [facility] [employer] Immature granulocytes/100 WBC (Bld) 0.2 % 0.0 - 2.0 % [facility] [employer] Interpretation and review of laboratory results Abnormal [facility] [employer] Lymphocytes (Bld) [#/Vol] 1.3 10*3/uL 1.0 - 4.3 10*3/uL [facility] [employer] Lymphocytes/100 WBC (Bld) 30.6 % 15.0 - 45.0 % [facility] [employer] MCH (RBC) [Entitic mass] 31.5 pg 26.0 - 34.0 pg [facility] [employer] MCHC (RBC) [Mass/Vol] 32.1 % 30.5 - 36.0 % [facility] [employer] MCV (RBC) [Entitic vol] 98.2 fL 77.0 - 99.0 fL [facility] Monocytes (Bld) [#/Vol] 0.4 10*3/uL 0.0 - 0.9 10*3/uL [facility] Monocytes/100 WBC (Bld) 9.4 % 5.0 - 13.0 % [facility] Neutrophils (Bld) [#/Vol] 2.1 10*3/uL 1.8 - 7.5 10*3/uL [facility] Neutrophils/100 WBC (Bld) 51.6 % 38.0 - 82.0 % [facility] Nucleated RBC/100 WBC (Bld) [Ratio] 0 % [facility] Platelet mean volume (Bld) [Entitic vol] 11.6 fL 9.0 - 12.7 fL [facility] Platelets (Bld) [#/Vol] 163 10*3/uL 140 - 440 10*3/uL [facility] RBC (Bld) [#/Vol] 3.36 10*6/uL Low 3.80 - 5.2 0 10*6/uL [facility] WBC (Bld) [#/Vol] 4.2 10*3/uL 3.6 - 10.7 10*3/uL [facility] CBC WITH AUTO DIFFERENTIALon 10-12-2024 Basophils (Bld) [#/Vol] 0.0 10*3/uL Normal 0.0-0.2 [facility] Comment on above: Performed By: #### L [id number] ####Licensed Embalmer: REJI HAMILTON ([id number])[facility] (SBHLAB)[address] Basophils/100 WBC (Bld) 0.5 % Normal 0.0-2.0 [facility] Comment on above: Performed By: #### L [id number] ####Licensed Embalmer: REJI HAMILTON ([id number])[facility] (SBHLAB)[address] Eosinophils (Bld) [#/Vol] 0.3 10*3/uL Normal 0.0-0.5 [facility] Comment on above: Performed By: #### L [id number] ####Licensed Embalmer: REJI BAUTISTACAIN ([id number])[facility] ([facility])[address] [place] [address] Eosinophils/100 WBC (Bld) 7.7 % High 0.0-6.0 [facility] Comment on above: Performed By: #### L [id number] ####Licensed Embalmer: REJI HILLEfrenCAIN ([id number])[facility] [facility] [place] [address] Erythrocyte distribution width (RBC) [Ratio] 14.6 % Normal 11.5-15.0 [facility] Comment on above: Performed By: #### L [id number] ####Licensed Embalmer: REJI HILLEDIN ([id number])[facility] ([facility])[address] [place] [address] Hematocrit (Bld) [Volume fraction] 33.0 % Low 35.0-47.0 [facility] Comment on above: Performed By: #### L [id number] ####Licensed Embalmer: REJI BAUTISTACAIN ([id number])[facility] ([facility])[address] [place] [address] Hemoglobin (Bld) [Mass/Vol] 10.6 g/dL Low 11.7-16.0 [facility] Comment on above: Performed By: #### L [id number] ####Licensed Embalmer: REJI BAUTISTACAIN ([id number])[facility] ([facility])[address] [place] [address] IMMATURE GRANS % 0.2 % Normal 0.0-2.0 [facility] Comment on above: Performed By: #### L [id number] ####Licensed Embalmer: REJI BAUTISTACAIN ([id number])[facility] ([facility])[address] [place] [address] IMMATURE GRANS ABSOLUTE 0.0 10*3/uL Normal <0.1 [facility] Comment on above: Performed By: #### L [id number] ####Licensed Embalmer: REJI HAMILTON ([id number])[facility] ([facility])[address] [place] [address] Lymphocytes (Bld) [#/Vol] 1.3 10*3/uL Normal 1.0-4.3 [facility] Comment on above: Performed By: #### L [id number] ####Licensed Embalmer: REJI HAMILTON ([id number])[facility] [place] ([facility])[address] Lymphocytes/100 WBC (Bld) 30.6 % Normal 15.0-45.0 [facility] Comment on above: Performed By: #### L [id number] ####Licensed Embalmer: REJI HAMILTON ([id number])[facility] ([facility])[address] [place] [address] MCH (RBC) [Entitic mass] 31.5 pg Normal 26.0-34.0 [facility] Comment on above: Performed By: #### L [id number] ####Licensed Embalmer: REJI HAMILTON ([id number])[facility] ([facility])[address] [place] [address] MCHC 32.1 % Normal 30.5-36.0 [facility] Comment on above: Performed By: #### L [id number] ####Licensed Embalmer: REJI HAMILTON ([id number])[facility] [place] ([facility])[address] [place] [address] MCV (RBC) [Entitic vol] 98.2 fL Normal 77.0-99.0 [facility] Comment on above: Performed By: #### L [id number] ####Licensed Embalmer: REJI HAMILTON ([id number])[facility] [place] ([facility])[address] [place] [address] Monocytes (Bld) [#/Vol] 0.4 10*3/uL Normal 0.0-0.9 [facility] Comment on above: Performed By: #### L [id number] ####Licensed Embalmer: REJI HAMILTON ([id number])[facility] [place] ([facility])[address] Monocytes/100 WBC (Bld) 9.4 % Normal 5.0-13.0 [facility] Comment on above: Performed By: #### L [id number] ####Licensed Embalmer: REJI HAMILTON ([id number])[facility] [place] ([facility])[address] NEUTROPHILS ABSOLUTE 2.1 10*3/uL Normal 1.8-7.5 [facility] Comment on above: Performed By: #### L [id number] ####Licensed Embalmer: REJI HAMILTON ([id number])[facility] [place] ([facility])[address] Neutrophils/100 WBC (Bld) 51.6 % Normal 38.0-82.0 [facility] Comment on above: Performed By: #### L [id number] ####Licensed Embalmer: REJI HAMILTON ([id number])[facility] [place] ([facility])[address] NRBC 0.0 /100 WBCs Normal 0.0-2.0 [facility] Comment on above: Performed By: #### L [id number] ####Licensed Embalmer: REJI HAMILTON ([id number])[facility] [place] ([facility])[address] Platelet mean volume (Bld) [Entitic vol] 11.6 fL Normal 9.0-12.7 [facility] Comment on above: Performed By: #### L [id number] ####Licensed Embalmer: REJI BAUTISTACAIN ([id number])[facility] [place] ([facility])[address] Platelets (Bld) [#/Vol] 163 10*3/uL Normal 140-440 [facility] Comment on above: Performed By: #### L [id number] ####Licensed Embalmer: REJI HAMILTON ([id number])[facility] [place] ([facility])[address] RBC (Bld) [#/Vol] 3.36 10*6/uL Low 3.80-5.20 [facility] Comment on above: Performed By: #### L [id number] ####Licensed Embalmer: REJI HAMILTON ([id number])[facility] [place] ([facility])[address] WBC (Bld) [#/Vol] 4.2 10*3/uL Normal 3.6-10.7 [facility] Comment on above: Performed By: #### L [id number] ####Licensed Embalmer: REJI HAMILTON ([id number])[facility] ([facility])[address] COMPREHENSIVE METABOLIC PANE Fernando 10-12-2024 Albumin [Mass/Vol] 2.2 g/dL Low 3.4-4.8 [facility] Comment on above: Performed By: #### L AB103, [id number], LAB17 ####Licensed Embalmer: REJI HAMILTON ([id number])[facility] [place] ([facility])[address] ALP [Catalytic activity/Vol] 61 U/L Normal 40-150 [facility] Comment on above: Performed By: #### L AB103, [id number], LAB17 ####Licensed Embalmer: REJI HAMILTON ([id number])[facility] ([facility])[address] ALT [Catalytic activity/Vol] 7 U/L Normal <30 [facility] Comment on above: Performed By: #### L AB103, SMM638, LAB17 ####Licensed Embalmer: REJI HAMILTON ([id number])[facility] ([facility])[address] Anion gap [Moles/Vol] 10 mmol/L Normal 3-13 [facility] Comment on above: Performed By: #### L AB103, [id number], LAB17 ####Licensed Embalmer: REJI HAMILTON ([id number])[facility] [place] ([facility])[address] AST [Catalytic activity/Vol] 23 U/L Normal <34 [facility] Comment on above: Performed By: #### L AB103, JGU565, LAB17 ####Licensed Embalmer: REJI HAMILTON ([id number])[facility] [place] ([facility])[address] Bilirubin [Mass/Vol] 0.4 mg/dL Normal <1.2 [facility] Comment on above: Performed By: #### L AB103, ZCJ889, LAB17 ####Licensed Embalmer: REJI HAMILTON ([id number])[facility] ([facility])[address] Calcium [Mass/Vol] 8.0 mg/dL Low 8.8-10.0 [facility] Comment on above: Performed By: #### L AB103, GLT790, LAB17 ####Licensed Embalmer: REJI HAMILTON ([id number])[facility]ITAL[facility] ([facility])[address] Chloride [Moles/Vol] 106 mmol/L Normal 98-107 [facility] Comment on above: Performed By: #### L AB103, EMI315, LAB17 ####Licensed Embalmer: REJI HAMILTON ([id number])[facility] [place] ([facility])[address] [place] [address] [place] CO2 [Moles/Vol] 25 mmol/L Normal 23-31 [facility] Comment on above: Performed By: #### L AB103, UOS313, LAB17 ####Licensed Embalmer: REJI HAMILTON ([id number])[facility] ([facility])[address] [place] [address] [place] Creatinine [Mass/Vol] 0.93 mg/dL Normal 0.57-1.11 [facility] Comment on above: Performed By: #### L AB103, AMJ132, LAB17 ####Licensed Embalmer: REJI HAMILTON ([id number])[facility] [place] [address] [place] GLOMERULAR FILTRATION RATE ML/MIN/1.73 SQ M.PREDICTED 63.8 mL/min/1.73m*2 Normal >60.0 [facility] Comment on above: Result Comment: Calc ulation based on the Chronic Kidney Disease Epidemiology Collaboration (CKD-EPI) equation refit without adjustment for race Performed By: #### L ABBridger, EQV925, LAB17 ####Licensed Embalmer: REJI HAMILTON ([id number])[facility] ([facility])[address] Glucose [Mass/Vol] 254 mg/dL High 82-115 [facility] Comment on above: Performed By: #### Gómez AB103, CAK204, LAB17 ####Licensed Embalmer: REJI HAMILTON ([id number])[facility] ([facility])[address] [place] [address] [place] Potassium [Moles/Vol] 4.0 mmol/L Normal 3.5-5.1 [facility] Comment on above: Result Comment: [facility] potassium values may be up to 0.5 mmol/L lower than serum values. Performed By: #### L ABBridger, EUV016, LAB17 ####Licensed Embalmer: REJI HAMILTON ([id number])[facility] [place] [address] [place] Protein [Mass/Vol] 5.7 g/dL Low 6.4-8.3 [facility] Comment on above: Performed By: #### L AB103, IFY653, LAB17 ####Licensed Embalmer: REJI HAMILTON ([id number])[facility] [place] [address] [place] Sodium [Moles/Vol] 141 mmol/L Normal 136-145 [facility] Comment on above: Performed By: #### L AB103, UAH500, LAB17 ####Licensed Embalmer: REJI HAMILTON ([id number])[facility] ([facility])[address] Urea nitrogen [Mass/Vol] 33 mg/dL High 9-23 [facility] Comment on above: Performed By: #### L AB103, ZQN519, LAB17 ####Licensed Embalmer: REJI HILLEDIN ([id number])[facility] ([facility])[address] Calcium.ionized [Moles/Vol]o n 10-12-2024 Calcium.ionized (Bld) [Moles/Vol] 4.1 mg/dL Low 4.30 - 5.20 mg/dL [facility] Interpretation and review of laboratory results Abnormal [facility] PH, IONIZED CALCIUM 7.46 7.31 - 7.46 [facility] Comprehensive metabolic 1998 panelon 10-12-2024 Albumin [Mass/Vol] 2.2 g/dL Low 3.4 - 4.8 g/dL [facility] ALP [Catalytic activity/Vol] 61 U/L 40 - 150 U/L [facility] ALT [Catalytic activity/Vol] 7 U/L [facility] - 30 U/L [facility] Anion gap [Moles/Vol] 10 mmol/L 3 - 13 mmol/L [facility] AST [Catalytic activity/Vol] 23 U/L [facility] - [facility] U/L [facility] Bilirubin [Mass/Vol] 0.4 mg/dL NINF - 1.2 mg/dL [facility] Calcium [Mass/Vol] 8 mg/dL Low 8.8 - 10. 0 mg/dL [facility] Chloride [Moles/Vol] 106 mmol/L 98 - 10 7 mmol/L [facility] CO2 [Moles/Vol] 25 mmol/L 23 - 31 mmol/L [facility] Creatinine [Mass/Vol] 0.93 mg/dL 0.57 - 1.11 mg/dL [facility] GFR/1.73 sq M.predicted (S/P/Bld) [Vol rate/Area] 63.8 mL/min - PINF [facility] Glucose [Mass/Vol] 254 mg/dL High 82 - 115 mg/dL [facility] Interpretation and review of laboratory results Abnormal [facility] Potassium [Moles/Vol] 4 mmol/L 3.5 - 5.1 mmol/L [facility] Protein [Mass/Vol] 5.7 g/dL Low 6.4 - 8.3 g/dL [facility] Sodium [Moles/Vol] 141 mmol/L 136 - 145 mmol/L [facility] Urea nitrogen [Mass/Vol] 33 mg/dL High 9 - 23 mg/dL [facility] Laboratory - Chemistry and C hemistry - challengeon 10-12-2024 Glucose [Mass/Vol] 299 mg/dL High 70 - 100 mg/dL [facility] Glucose [Mass/Vol] 330 mg/dL High 70 - 100 mg/dL [facility] Glucose [Mass/Vol] 310 mg/dL High 70 - 100 mg/dL [facility] Glucose [Mass/Vol] 254 mg/dL High 70 - 100 mg/dL [facility] Magnesium [Mass/Vol] 1.9 mg/dL 1.6 - 2 .6 mg/dL [facility] Laboratory - Microbiology an d Antimicrobial susceptibilityon 10-12-2024 Bacteria identified Cx Nom (Bld) Staphylococcus hominis Critically abnormal [facility] MAGNESIUMon 10-12-2024 Magnesium [Mass/Vol] 1.9 mg/dL Normal 1.6-2.6 [facility] Comment on above: Result Comment: LANA Rangel COMMENTS:Higher values can be expected in females during menses. Performed By: #### L AB103, ASY360, LAB17 ####Licensed Embalmer: REJI HAMILTON ([id number])[facility] ([facility])[address] [place] [address] Magnesium [Mass/Vol]on 10-12 [facility] No Panel Informationon 10-12 Interpretation and review of laboratory results Abnormal [facility] Interpretation and review of laboratory results Abnormal [facility] Interpretation and review of laboratory results Abnormal [facility] Interpretation and review of laboratory results Abnormal [facility] Interpretation and review of laboratory results Normal [facility] PHOSPHORUSon 10-12-2024 Phosphate [Mass/Vol] 2.7 mg/dL Normal 2.3-4.7 [facility] Comment on above: Performed By: #### L AB103, AVS735, LAB17 ####Licensed Embalmer: REJI HAMILTON ([id number])[facility] ([facility])[address] [place] [address] Phosphate [Moles/Vol]on 09-30 Phosphate [Mass/Vol] 2.7 mg/dL 2.3 - 4 .7 mg/dL [facility] Progress Noteon 10-12-2024 Progress Note Normal [facility] Progress Note Normal [facility] Bacteria identified Cx Nom ( U)Ordered By: Shante Khoury on 10-11-2024 Interpretation and review of laboratory results Normal [facility] CALCIUM, IONIZEDon CALCIUM IONIZED 4.20 mg/dL Low 4.30-5.20 [facility] Comment on above: Performed By: #### L AB54 ####Licensed Embalmer: REJI HAMILTON ([id number])[facility] ([facility])[address] [place] [address] PH, IONIZED CALCIUM 7.40 Normal 7.31-7.46 [facility] Comment on above: Performed By: #### L AB54 ####Licensed Embalmer: REJI HAMILTON ([id number])[facility] ([facility])[address] [place] [address] CBC W Auto Differential pane l (Bld)on 10-11-2024 Basophils (Bld) [#/Vol] 0 10*3/uL 0.0 - 0.2 10*3/uL [facility] Basophils/100 WBC (Bld) 0.5 % 0.0 - 2.0 % [facility] Eosinophils (Bld) [#/Vol] 0.1 10*3/uL 0.0 - 0.5 10*3/uL [facility] Eosinophils/100 WBC (Bld) 1.4 % 0.0 - 6.0 % [facility] Erythrocyte distribution width (RBC) [Ratio] 14.6 % 11.5 - 15.0 % [facility] Hematocrit (Bld) [Volume fraction] 36.6 % 35.0 - 47.0 % [facility] Hemoglobin (Bld) [Mass/Vol] 11.8 g/dL 11.7 - 16.0 g/dL [facility] [employer] Immature granulocytes (Bld) [#/Vol] 0 10*3/uL NINF - 0.1 10*3/uL [facility] [employer] Immature granulocytes/100 WBC (Bld) 0.5 % 0.0 - 2.0 % [facility] Interpretation and review of laboratory results Abnormal [facility] [employer] Lymphocytes (Bld) [#/Vol] 0.6 10*3/uL Low 1.0 - 4.3 10*3/uL [facility] Lymphocytes/100 WBC (Bld) 14.2 % Low 15.0 - 45.0 % [facility] MCH (RBC) [Entitic mass] 31.7 pg 26.0 - 34.0 pg [facility] MCHC (RBC) [Mass/Vol] 32.2 % 30.5 - 36.0 % [facility] MCV (RBC) [Entitic vol] 98.4 fL 77.0 - 99.0 fL [facility] [employer] [facility] Monocytes (Bld) [#/Vol] 0.4 10*3/uL 0.0 - 0.9 10*3/uL [facility] Monocytes/100 WBC (Bld) 9.5 % 5.0 - 13.0 % [facility] Neutrophils (Bld) [#/Vol] 3.1 10*3/uL 1.8 - 7.5 10*3/uL [facility] Neutrophils/100 WBC (Bld) 73.9 % 38.0 - 82.0 % [facility] Nucleated RBC/100 WBC (Bld) [Ratio] 0 % [facility] [employer] Platelet mean volume (Bld) [Entitic vol] 11.6 fL 9.0 - 12.7 fL [facility] [employer] Platelets (Bld) [#/Vol] 153 10*3/uL 140 - 440 10*3/uL [facility] RBC (Bld) [#/Vol] 3.72 10*6/uL Low 3.80 - 5.2 0 10*6/uL [facility] WBC (Bld) [#/Vol] 4.2 10*3/uL 3.6 - 10.7 10*3/uL [facility] CBC WITH AUTO DIFFERENTIALon 07-12-2025 Basophils (Bld) [#/Vol] 0.0 10*3/uL Normal 0.0-0.2 [facility] Comment on above: Performed By: #### L [id number] ####Licensed Embalmer: REJI HAMILTON ([id number])[facility] [place] ([facility])[address] Basophils/100 WBC (Bld) 0.5 % Normal 0.0-2.0 [facility] Comment on above: Performed By: #### L [id number] ####Licensed Embalmer: REJI HAMILTON ([id number])[facility] [place] ([facility])[address] Eosinophils (Bld) [#/Vol] 0.1 10*3/uL Normal 0.0-0.5 [facility] Comment on above: Performed By: #### L [id number] ####Licensed Embalmer: REJI HAMILTON ([id number])[facility] [place] ([facility])[address] Eosinophils/100 WBC (Bld) 1.4 % Normal 0.0-6.0 [facility] Comment on above: Performed By: #### L [id number] ####Licensed Embalmer: REJI HAMILTON ([id number])[facility] [place] ([facility])[address] Erythrocyte distribution width (RBC) [Ratio] 14.6 % Normal 11.5-15.0 [facility] Comment on above: Performed By: #### L [id number] ####Licensed Embalmer: REJI HAMILTON ([id number])[facility] [place] ([facility])[address] Hematocrit (Bld) [Volume fraction] 36.6 % Normal 35.0-47.0 [facility] Comment on above: Performed By: #### L [id number] ####Licensed Embalmer: REJI HAMILTON ([id number])[facility] [place] ([facility])[address] Hemoglobin (Bld) [Mass/Vol] 11.8 g/dL Normal 11.7-16.0 [facility] Comment on above: Performed By: #### L [id number] ####Licensed Embalmer: REJI BAUTISTACAIN ([id number])[facility] [place] ([facility])[address] IMMATURE GRANS % 0.5 % Normal 0.0-2.0 [facility] Comment on above: Performed By: #### L [id number] ####Licensed Embalmer: REJI BAUTISTACAIN ([id number])[facility] ([facility])[address] IMMATURE GRANS ABSOLUTE 0.0 10*3/uL Normal <0.1 [facility] Comment on above: Performed By: #### L [id number] ####Licensed Embalmer: REJI HAMILTON ([id number])[facility] ([facility])[address] Lymphocytes (Bld) [#/Vol] 0.6 10*3/uL Low 1.0-4.3 [facility] Comment on above: Performed By: #### L [id number] ####Licensed Embalmer: REJI HAMILTON ([id number])[facility]ITALMelissa [facility] ([facility])[address] [place] [address] Lymphocytes/100 WBC (Bld) 14.2 % Low 15.0-45.0 [facility] Comment on above: Performed By: #### L [id number] ####Licensed Embalmer: REJI HAMILTON ([id number])[facility] [place] ([facility])[address] MCH (RBC) [Entitic mass] 31.7 pg Normal 26.0-34.0 [facility] Comment on above: Performed By: #### L [id number] ####Licensed Embalmer: REJI HAMILTON ([id number])[facility] ([facility])[address] MCHC 32.2 % Normal 30.5-36.0 [facility] Comment on above: Performed By: #### L [id number] ####Licensed Embalmer: REJI BAUTISTACAIN ([id number])[facility] [place] ([facility])[address] MCV (RBC) [Entitic vol] 98.4 fL Normal 77.0-99.0 [facility] Comment on above: Performed By: #### L [id number] ####Licensed Embalmer: REJI BAUTISTACAIN ([id number])[facility] [place] ([facility])[address] Monocytes (Bld) [#/Vol] 0.4 10*3/uL Normal 0.0-0.9 [facility] Comment on above: Performed By: #### L [id number] ####Licensed Embalmer: REJI BAUTISTACAIN ([id number])[facility] [place] ([facility])[address] Monocytes/100 WBC (Bld) 9.5 % Normal 5.0-13.0 [facility] Comment on above: Performed By: #### L [id number] ####Licensed Embalmer: REJI BAUTISTACAIN ([id number])[facility] [place] ([facility])[address] NEUTROPHILS ABSOLUTE 3.1 10*3/uL Normal 1.8-7.5 [facility] Comment on above: Performed By: #### L [id number] ####Licensed Embalmer: REJI BAUTISTACAIN ([id number])[facility] [place] ([facility])[address] Neutrophils/100 WBC (Bld) 73.9 % Normal 38.0-82.0 [facility] Comment on above: Performed By: #### L [id number] ####Licensed Embalmer: REJI HAMILTON ([id number])[facility] [place] ([facility])[address] NRBC 0.0 /100 WBCs Normal 0.0-2.0 [facility] Comment on above: Performed By: #### L [id number] ####Licensed Embalmer: REJI BAUTISTACAIN ([id number])[facility] ([facility])[address] Platelet mean volume (Bld) [Entitic vol] 11.6 fL Normal 9.0-12.7 [facility] Comment on above: Performed By: #### L [id number] ####Licensed Embalmer: REJI HAMILTON ([id number])[facility]ITAL[facility] [place] ([facility])[address] Platelets (Bld) [#/Vol] 153 10*3/uL Normal 140-440 [facility] Comment on above: Performed By: #### L [id number] ####Licensed Embalmer: REJI HAMILTON ([id number])[facility] [place] ([facility])[address] RBC (Bld) [#/Vol] 3.72 10*6/uL Low 3.80-5.20 [facility] Comment on above: Performed By: #### L [id number] ####Licensed Embalmer: REJI BAUTISTACAIN ([id number])[facility]ITAL[facility]issa [place] ([facility])[address] WBC (Bld) [#/Vol] 4.2 10*3/uL Normal 3.6-10.7 [facility] Comment on above: Performed By: #### L [id number] ####Licensed Embalmer: REJI BAUTISTACAIN ([id number])[facility]ITAL[facility] [place] ([facility])[address] COMPREHENSIVE METABOLIC PANE Fernando 10-11-2024 Albumin [Mass/Vol] 2.5 g/dL Low 3.4-4.8 [facility] Comment on above: Performed By: #### L AB113, WXS224, LAB17 ####Licensed Embalmer: REJI HAMILTON ([id number])[facility]ITALA [place] (SBHLAB)[address] ALP [Catalytic activity/Vol] 68 U/L Normal 40-150 [facility] Comment on above: Performed By: #### L AB113, [id number], LAB17 ####Licensed Embalmer: REJI HAMILTON ([id number])[facility]ITAL[facility] (SBHLAB)[address] [place] [address] [place] ALT [Catalytic activity/Vol] U/L Normal <30 [facility] Comment on above: Performed By: #### L AB113, [id number], LAB17 ####Licensed Embalmer: REJI HAMILTON ([id number])[facility] (SBHLAB)[address] Anion gap [Moles/Vol] 15 mmol/L High 3-13 [facility] Comment on above: Performed By: #### Gómez ABLeighann, [id number], LAB17 ####Licensed Embalmer: REJI HAMILTON ([id number])[facility] (SB[facility]AB)[address] AST [Catalytic activity/Vol] 23 U/L Normal <34 [facility] Comment on above: Performed By: #### Gómez AB113, [id number], LAB17 ####Licensed Embalmer: REJI HAMILTON ([id number])[facility] ([facility])[address] Bilirubin [Mass/Vol] 0.6 mg/dL Normal <1.2 [facility] Comment on above: Performed By: #### L AB113, [id number], LAB17 ####Licensed Embalmer: REJI HAMILTON ([id number])[facility] (SB[facility]AB)[address] [place] [address] [place] Calcium [Mass/Vol] 8.2 mg/dL Low 8.8-10.0 [facility] Comment on above: Performed By: #### Gómez ABLeighann, [id number], LAB17 ####Licensed Embalmer: REJI HAMILTON ([id number])[facility] (SBHLAB)[address] [place] [address] [place] Chloride [Moles/Vol] 104 mmol/L Normal 98-107 [facility] Comment on above: Performed By: #### L AB113, [id number], LAB17 ####Licensed Embalmer: REJI HAMILTON ([id number])[facility]OSPITALMelissa CASTILLOREHOBOTH MCKIN[facility] CHRIST[facility]ALTH CARE SERVICESN (SBHLAB)[address] [place] [address] [place] CO2 [Moles/Vol] 24 mmol/L Normal 23-31 [facility] Comment on above: Performed By: #### Gómez ABLeighann, [id number], LAB17 ####Licensed Embalmer: REJI HAMILTON ([id number])[facility]OSPITALMelissa CA[facility]OBAN[facility] (SBHLAB)[address] Creatinine [Mass/Vol] 1.22 mg/dL High 0.57-1.11 [facility] Comment on above: Performed By: #### Gómez BLANCO, [id number], LAB17 ####Licensed Embalmer: REJI HAMILTON ([id number])[facility]OSPITALMelissa CA[facility]ILLOBAN[facility] (SBHLAB)[address] [place] [address] [place] GLOMERULAR FILTRATION RATE ML/MIN/1.73 SQ M.PREDICTED 46.1 mL/min/1.73m*2 Low >60.0 [facility] Comment on above: Result Comment: Calc ulation based on the Chronic Kidney Disease Epidemiology Collaboration (CKD-EPI) equation refit without adjustment for race Performed By: #### Gómez BLANCO, [id number], LAB17 ####Licensed Embalmer: REJI HAMILTON ([id number])[facility]OSPITALMelissa STONEN (SBHLAB)[address] [place] [address] [place] Glucose [Mass/Vol] 412 mg/dL High 82-115 [facility] Comment on above: Performed By: #### L ABLeighann, [id number], LAB17 ####Licensed Embalmer: REJI HAMILTON ([id number])[facility]PITALMelissa CA[facility]OBAN[facility] (SBHLAB)[address] [place] [address] [place] Potassium [Moles/Vol] 4.0 mmol/L Normal 3.5-5.1 [facility] Comment on above: Result Comment: [facility] potassium values may be up to 0.5 mmol/L lower than serum values. Performed By: #### L AB113, [id number], LAB17 ####Licensed Embalmer: REJI HAMILTON ([id number])[facility] (SBHLAB)[address] Protein [Mass/Vol] 6.2 g/dL Low 6.4-8.3 [facility] Comment on above: Performed By: #### L AB113, [id number], LAB17 ####Licensed Embalmer: REJI HAMILTON ([id number])[facility] (SBHLAB)[address] Sodium [Moles/Vol] 143 mmol/L Normal 136-145 [facility] Comment on above: Performed By: #### L AB113, [id number], LAB17 ####Licensed Embalmer: REJI HAMILTON ([id number])[facility] (SBHLAB)[address] Urea nitrogen [Mass/Vol] 30 mg/dL High 9-23 [facility] Comment on above: Performed By: #### L AB113, [id number], LAB17 ####Licensed Embalmer: REJI BAUTISTACAIN ([id number])[facility] (SBHLAB)[address] [place] [address] Calcium.ionized [Moles/Vol]O rdered By: Darrick Gonzalez on 10-11-2024 Calcium.ionized (Bld) [Moles/Vol] 4.2 mg/dL Low 4.30 - 5.20 mg/dL [facility] Interpretation and review of laboratory results Abnormal [facility] PH, IONIZED CALCIUM 7.4 7.31 - 7.46 [facility] Comprehensive metabolic 1998 panelon 10-11-2024 Albumin [Mass/Vol] 2.5 g/dL Low 3.4 - 4.8 g/dL [facility] ALP [Catalytic activity/Vol] 68 U/L 40 - 150 U/L [facility] ALT [Catalytic activity/Vol] U/L NINF - 30 U/L [facility] Anion gap [Moles/Vol] 15 mmol/L High 3 - 13 mmol/L [facility] AST [Catalytic activity/Vol] 23 U/L NINF - 34 U/L [facility] Bilirubin [Mass/Vol] 0.6 mg/dL NINF - 1.2 mg/dL [facility] Calcium [Mass/Vol] 8.2 mg/dL Low 8.8 - 10. 0 mg/dL [facility] Chloride [Moles/Vol] 104 mmol/L 98 - 10 7 mmol/L [facility] CO2 [Moles/Vol] 24 mmol/L 23 - 31 mmol/L [facility] Creatinine [Mass/Vol] 1.22 mg/dL High 0.57 - 1.11 mg/dL [facility] GFR/1.73 sq M.predicted (S/P/Bld) [Vol rate/Area] 46.1 mL/min Low - PINF [facility] Glucose [Mass/Vol] 412 mg/dL High 82 - 115 mg/dL [facility] Interpretation and review of laboratory results Abnormal [facility] Potassium [Moles/Vol] 4 mmol/L 3.5 - 5.1 mmol/L [facility] Protein [Mass/Vol] 6.2 g/dL Low 6.4 - 8.3 g/dL [facility] Sodium [Moles/Vol] 143 mmol/L 136 - 145 mmol/L [facility] Urea nitrogen [Mass/Vol] 30 mg/dL High 9 - 23 mg/dL [facility] Laboratory - Chemistry and C hemistry - challengeon 10-11-2024 Glucose [Mass/Vol] 344 mg/dL High 70 - 100 mg/dL [facility] Glucose [Mass/Vol] 400 mg/dL High 70 - 100 mg/dL [facility] Glucose [Mass/Vol] 383 mg/dL High 70 - 100 mg/dL [facility] Glucose [Mass/Vol] 349 mg/dL High 70 - 100 mg/dL [facility] Magnesium [Mass/Vol] 1.9 mg/dL 1.6 - 2 .6 mg/dL [facility] Laboratory - Microbiology an d Antimicrobial susceptibilityOrdered By: Shante Khoury on 10-11-2024 Bacteria identified Cx Nom (U) No growth (<1,000 CFU/mL) [facility] MAGNESIUMon 07-12-2025 Magnesium [Mass/Vol] 1.9 mg/dL Normal 1.6-2.6 [facility] Comment on above: Result Comment: LANA R COMMENTS:Higher values can be expected in females during menses. Performed By: #### L AB113, [id number], LAB17 ####Licensed Embalmer: REJI HAMILTON ([id number])[facility]OSPITALMelissa SERNA ([facility])[address] Magnesium [Mass/Vol]on 10-11 [facility] No Panel Informationon 10-11 Interpretation and review of laboratory results Abnormal [facility] Interpretation and review of laboratory results Abnormal [facility] Interpretation and review of laboratory results Abnormal [facility] Interpretation and review of laboratory results Abnormal [facility] Interpretation and review of laboratory results Normal [facility] PHOSPHORUSon 10-11-2024 Phosphate [Mass/Vol] 3.0 mg/dL Normal 2.3-4.7 [facility] Comment on above: Performed By: #### L AB113, [id number], LAB17 ####Licensed Embalmer: REJI HAMILTON ([id number])[facility]ENTER[facility]LL[facility] ([facility])[address] [place] [address] [place] Phosphate [Moles/Vol]on 09-30 Phosphate [Mass/Vol] 3 mg/dL 2.3 - 4 .7 mg/dL [facility] Progress Noteon 10-11-2024 Progress Note Normal [facility] Progress Note Transferred out of [facility]. Will follow Normal [facility] Progress Note Normal [facility] 30on 10-10-2024 30 Normal [facility] 30 Normal [facility] [id number] 10-10-2024 [id number] Normal [facility] CALCIUM, IONIZEDon CALCIUM IONIZED 4.20 mg/dL Low 4.30-5.20 [facility] Comment on above: Performed By: #### L AB54 ####Licensed Embalmer: REJI HAMILTON ([id number])[facility]OSPITALMelissa SERNA (SBHLAB)[address] PH, IONIZED CALCIUM 7.36 Normal 7.31-7.46 [facility] Comment on above: Performed By: #### L AB54 ####Licensed Embalmer: REJI HAMILTON ([id number])[facility] (SBHLAB)[address] CBC W Auto Differential pane l (Bld)Ordered By: Dinga Hernandez on 10-10-2024 Basophils (Bld) [#/Vol] 0 10*3/uL 0.0 - 0.2 10*3/uL [facility] Basophils/100 WBC (Bld) 0.4 % 0.0 - 2.0 % [facility] Eosinophils (Bld) [#/Vol] 0 10*3/uL 0.0 - 0.5 10*3/uL [facility] Eosinophils/100 WBC (Bld) 0.2 % 0.0 - 6.0 % [facility] [facility] Erythrocyte distribution width (RBC) [Ratio] 14.7 % 11.5 - 15.0 % [facility] [facility] Hematocrit (Bld) [Volume fraction] 38.5 % 35.0 - 47.0 % [facility] Hemoglobin (Bld) [Mass/Vol] 12 g/dL 11.7 - 16.0 g/dL [facility] [employer] [facility] Immature granulocytes (Bld) [#/Vol] 0 10*3/uL NINF - 0.1 10*3/uL [facility] [facility] Immature granulocytes/100 WBC (Bld) 0.6 % 0.0 - 2.0 % [facility] Interpretation and review of laboratory results Abnormal [facility] [facility] Lymphocytes (Bld) [#/Vol] 0.8 10*3/uL Low 1.0 - 4.3 10*3/uL [facility] [facility] Lymphocytes/100 WBC (Bld) 15.3 % 15.0 - 45.0 % [facility] [facility] MCH (RBC) [Entitic mass] 31.2 pg 26.0 - 34.0 pg [facility] MCHC (RBC) [Mass/Vol] 31.2 % 30.5 - 36.0 % [facility] MCV (RBC) [Entitic vol] 100 fL High 77.0 - 99.0 fL [facility] [employer] [facility] Monocytes (Bld) [#/Vol] 0.5 10*3/uL 0.0 - 0.9 10*3/uL [facility] Monocytes/100 WBC (Bld) 9.4 % 5.0 - 13.0 % [facility] Neutrophils (Bld) [#/Vol] 3.6 10*3/uL 1.8 - 7.5 10*3/uL [facility] Neutrophils/100 WBC (Bld) 74.1 % 38.0 - 82.0 % [facility] Nucleated RBC/100 WBC (Bld) [Ratio] 0 % [facility] Platelet mean volume (Bld) [Entitic vol] 10.9 fL 9.0 - 12.7 fL [facility] Platelets (Bld) [#/Vol] 158 10*3/uL 140 - 440 10*3/uL [facility] RBC (Bld) [#/Vol] 3.85 10*6/uL 3.80 - 5.2 0 10*6/uL [facility] WBC (Bld) [#/Vol] 4.9 10*3/uL 3.6 - 10.7 10*3/uL [facility] CBC WITH AUTO DIFFERENTIALon 10-10-2024 Basophils (Bld) [#/Vol] 0.0 10*3/uL Normal 0.0-0.2 [facility] Comment on above: Performed By: #### L [id number] ####Licensed Embalmer: REJI HAMILTON ([id number])[facility] ([facility])[address] [place] [address] Basophils/100 WBC (Bld) 0.4 % Normal 0.0-2.0 [facility] Comment on above: Performed By: #### L [id number] ####Licensed Embalmer: REJI HAMILTON ([id number])[facility] Eosinophils (Bld) [#/Vol] 0.0 10*3/uL Normal 0.0-0.5 [facility] Comment on above: Performed By: #### L [id number] ####Licensed Embalmer: REJI HAMILTON ([id number])[facility] (SBHLAB)[address] Eosinophils/100 WBC (Bld) 0.2 % Normal 0.0-6.0 [facility] Comment on above: Performed By: #### L [id number] ####Licensed Embalmer: REJI HAMILTON ([id number])[facility] [place] (SBHLAB)[address] Erythrocyte distribution width (RBC) [Ratio] 14.7 % Normal 11.5-15.0 [facility] Comment on above: Performed By: #### L [id number] ####Licensed Embalmer: REJI HAMILTON ([id number])[facility]ITALA [place] (SBHLAB)[address] Hematocrit (Bld) [Volume fraction] 38.5 % Normal 35.0-47.0 [facility] Comment on above: Performed By: #### L [id number] ####Licensed Embalmer: REJI HAMILTON ([id number])[facility]ITALA [place] (SBHLAB)[address] Hemoglobin (Bld) [Mass/Vol] 12.0 g/dL Normal 11.7-16.0 [facility] Comment on above: Performed By: #### L [id number] ####Licensed Embalmer: REJI HAMILTON ([id number])[facility]ITALA [place] (SBHLAB)[address] IMMATURE GRANS % 0.6 % Normal 0.0-2.0 [facility] Comment on above: Performed By: #### L [id number] ####Licensed Embalmer: REJI HAMILTON ([id number])[facility]ITALA [place] (SBHLAB)[address] IMMATURE GRANS ABSOLUTE 0.0 10*3/uL Normal <0.1 [facility] Comment on above: Performed By: #### L [id number] ####Licensed Embalmer: REJI HAMILTON ([id number])[facility]ITALA [place] (SBHLAB)[address] Lymphocytes (Bld) [#/Vol] 0.8 10*3/uL Low 1.0-4.3 [facility] Comment on above: Performed By: #### L [id number] ####Licensed Embalmer: REJI BAUTISTACAIN ([id number])[facility]ITALA [place] (SBHLAB)[address] Lymphocytes/100 WBC (Bld) 15.3 % Normal 15.0-45.0 [facility] Comment on above: Performed By: #### L [id number] ####Licensed Embalmer: REJI BAUTISTACAIN ([id number])[facility]ITALA [facility] (SBHLAB)[address] MCH (RBC) [Entitic mass] 31.2 pg Normal 26.0-34.0 [facility] Comment on above: Performed By: #### L [id number] ####Licensed Embalmer: REJI BAUTISTACAIN ([id number])[facility]ITALA [facility] (SBHLAB)[address] MCHC 31.2 % Normal 30.5-36.0 [facility] Comment on above: Performed By: #### L [id number] ####Licensed Embalmer: REJI HAMILTON ([id number])[facility]ITALA [place] (SBHLAB)[address] MCV (RBC) [Entitic vol] 100.0 fL High 77.0-99.0 [facility] Comment on above: Performed By: #### L [id number] ####Licensed Embalmer: REJI BAUTISTACAIN ([id number])[facility]ITALA [facility]N (SBHLAB)[address] Monocytes (Bld) [#/Vol] 0.5 10*3/uL Normal 0.0-0.9 [facility] Comment on above: Performed By: #### L [id number] ####Licensed Embalmer: REJI HAMILTON ([id number])[facility]ITALA [facility]N (SBHLAB)[address] Monocytes/100 WBC (Bld) 9.4 % Normal 5.0-13.0 [facility] Comment on above: Performed By: #### L [id number] ####Licensed Embalmer: REJI HAMILTON ([id number])[facility] [place] (SBHLAB)[address] NEUTROPHILS ABSOLUTE 3.6 10*3/uL Normal 1.8-7.5 [facility] Comment on above: Performed By: #### L [id number] ####Licensed Embalmer: REJI BAUTISTACANI ([id number])[facility]A [place] (SBHLAB)[address] Neutrophils/100 WBC (Bld) 74.1 % Normal 38.0-82.0 [facility] Comment on above: Performed By: #### L [id number] ####Licensed Embalmer: REJI HAMILTON ([id number])[facility]A [place] (SBHLAB)[address] NRBC 0.0 /100 WBCs Normal 0.0-2.0 [facility] Comment on above: Performed By: #### L [id number] ####Licensed Embalmer: REJI BAUTISTACAIN ([id number])[facility]A [place] (SBHLAB)[address] Platelet mean volume (Bld) [Entitic vol] 10.9 fL Normal 9.0-12.7 [facility] Comment on above: Performed By: #### L [id number] ####Licensed Embalmer: REJI HAMILTON ([id number])[facility]A [place] (SBHLAB)[address] [place] [address] [place] Platelets (Bld) [#/Vol] 158 10*3/uL Normal 140-440 [facility] Comment on above: Performed By: #### L [id number] ####Licensed Embalmer: REJI HAMILTON ([id number])[facility]A [place] (SBHLAB)[address] [place] [address] [place] RBC (Bld) [#/Vol] 3.85 10*6/uL Normal 3.80-5.20 [facility] Comment on above: Performed By: #### L [id number] ####Licensed Embalmer: REJI HAMILTON ([id number])[facility]A [place] (SBHLAB)[address] [place] [address] WBC (Bld) [#/Vol] 4.9 10*3/uL Normal 3.6-10.7 [facility] Comment on above: Performed By: #### L [id number] ####Licensed Embalmer: REJI HAMILTON ([id number])[facility]ITALA [facility]N (SBHLAB)[address] [place] [address] COMPLETE URINALYSIS WITH REF TARIQ TO CULTUREon 10-10-2024 BACTERIA (#/HPF) IN URINE Few Abnormal Negative [facility] Comment on above: Performed By: #### L [id number] ####Licensed Embalmer: REJI HAMILTON ([id number])[facility]A [facility] (SBHLAB)[address] [place] [address]#### [id number] ####Licensed Embalmer: MERLE RODRIGUES ([id number])[facility] ([facility])[address] [place] [address] BILIRUBIN, TOTAL PRESENCE IN URINE Negative Normal Negative [facility] Comment on above: Performed By: #### L [id number] ####Licensed Embalmer: REJI HAMILTON ([id number])[facility]A [facility] (SBHLAB)[address] [place] [address]#### [id number] ####Licensed Embalmer: MERLE RODRIGUES ([id number])[facility] ([facility])[address] [place] [address] Clarity (U) Turbid Abnormal Clear [facility] Comment on above: Performed By: #### L [id number] ####Licensed Embalmer: REJI HAMILTON ([id number])[facility]A [facility] (SB[facility])[address] [place] [address]#### [id number] ####Licensed Embalmer: MERLE RODRIGUES ([id number])[facility] ([facility])[address] [place] [address] Color (U) Yellow Normal Lt. Yellow [facility] Comment on above: Performed By: #### L [id number] ####Licensed Embalmer: REJI HAMILTON ([id number])[facility] (SBHLAB)[address]#### [id number] ####Licensed Embalmer: MERLE RODRIGUES ([id number])[facility] ([facility])[address] [place] [address] Glucose (U) [Mass/Vol] 200 mg/dL Abnormal Nancy l (<70) [facility] Comment on above: Performed By: #### L [id number] ####Licensed Embalmer: REJI HAMILTON ([id number])[facility] (SB[facility]AB)[address] [place] [address]#### [id number] ####Licensed Embalmer: MERLE RODRIGUES ([id number])[facility] ([facility])[address] [place] [address] HEMOGLOBIN PRESENCE IN URINE 1.0 mg/dL Abnormal Negative [facility] Comment on above: Performed By: #### L [id number] ####Licensed Embalmer: REJI HAMILTON ([id number])[facility] (SBHLAB)[address] [place] [address]#### [id number] ####Licensed Embalmer: MERLE RODRIGUES ([id number])[facility] ([facility])[address] [place] [address] Ketones Ql (U) Negative Normal Negative [facility] Comment on above: Performed By: #### L [id number] ####Licensed Embalmer: REJI HAMILTON ([id number])[facility] (SBHLAB)[address]#### [id number] ####Licensed Embalmer: MERLE RODRIGUES ([id number])[facility] ([facility])[address] [place] [address] LEUKOCYTE ESTERASE PRESENCE IN URINE BY TEST STRIP 250 Jimenez/uL Abnormal Negative [facility] Comment on above: Performed By: #### L [id number] ####Licensed Embalmer: REJI HAMILTON ([id number])[facility] ([facility])[address] [place] [address]#### [id number] ####Licensed Embalmer: MERLE RODRIGUES ([id number])[facility])[address] [place] [address] NITRITE PRESENCE IN URINE Negative Normal Negative [facility] Comment on above: Performed By: #### L [id number] ####Licensed Embalmer: REJI HAMILTON ([id number])[facility] ([facility])[address] [place] [address]#### [id number] ####Licensed Embalmer: MERLE RODRIGUES ([id number])[facility])[address] [place] [address] pH (U) 6.0 [pH] Normal 5.0-8.0 [facility] Comment on above: Performed By: #### L [id number] ####Licensed Embalmer: REJI HAMILTON ([id number])[facility] ([facility])[address] [place] [address]#### [id number] ####Licensed Embalmer: MERLE RODRIGUES ([id number])[facility] ([facility])[address] [place] [address] Protein (U) [Mass/Vol] 100 mg/dL Abnormal Negative [facility] Comment on above: Performed By: #### L [id number] ####Licensed Embalmer: REJI HAMILTON ([id number])[facility] ([facility])[address] [place] [address]#### [id number] ####Licensed Embalmer: MERLE RODRIGUES ([id number])[facility])[address] [place] [address] RBC (#/HPF) IN URINE SEDIMENT 26-50 Abnormal 0-2 [facility] Comment on above: Performed By: #### L [id number] ####Licensed Embalmer: REJI HAMILTON ([id number])[facility] ([facility])[address] [place] [address]#### [id number] ####Licensed Embalmer: MERLE RODRIGUES ([id number])[facility])[address] [place] [address] Specific gravity (U) [Rel density] 1.021 Normal 1.005-1.030 [facility] Comment on above: Result Comment: LANA Rangel COMMENTS:This specimen has been reflexed to urine culture. Performed By: #### L [id number] ####Licensed Embalmer: REJI HAMILTON ([id number])[facility] ([facility])[address] [place] [address]#### [id number] ####Licensed Embalmer: MERLE RODRIGUES ([id number])[facility] ([facility])[address] [place] [address] SQUAMOUS EPITHELIAL CELLS (#/HPF) IN URINE SEDIMENT 3-5 Normal 3-5 [facility] Comment on above: Performed By: #### L [id number] ####Licensed Embalmer: REJI HAMILTON ([id number])[facility] ([facility])[address] [place] [address]#### [id number] ####Licensed Embalmer: MERLE RODRIGUES ([id number])[facility] [place] [address] UROBILINOGEN (MG/DL) IN URINE Normal Normal Normal (0-1) [facility] Comment on above: Performed By: #### L [id number] ####Licensed Embalmer: REJI HAMILTON ([id number])[facility] ([facility])[address] [place] [address]#### [id number] ####Licensed Embalmer: MERLE RODRIGUES ([id number])[facility] ([facility])[address] WBC (LEUKOCYTE) (#/HPF) IN URINE SEDIMENT 26-50 Abnormal 0-5 [facility] Comment on above: Performed By: #### L [id number] ####Licensed Embalmer: REJI HAMILTON ([id number])[facility] ([facility])[address] [place] [address]#### [id number] ####Licensed Embalmer: MERLE RODRIGUES ([id number])[facility] ([facility])[address] WBC (LEUKOCYTE) CLUMPS (#/HPF) IN URINE SEDIMENT Few Abnormal Negative [facility] Comment on above: Performed By: #### L [id number] ####Licensed Embalmer: REJI HAMILTON ([id number])[facility] ([facility]AB)[address] [place] [address]#### [id number] ####Licensed Embalmer: MERLE RODRIGUES ([id number])[facility] ([facility])[address] [place] [address] COMPREHENSIVE METABOLIC PANE Fernando 10-10-2024 Albumin [Mass/Vol] 2.5 g/dL Low 3.4-4.8 [facility] Comment on above: Performed By: #### L AB103, LAB17, [id number] ####Licensed Embalmer: REJI HAMILTON ([id number])[facility] ([facility])[address] [place] [address] ALP [Catalytic activity/Vol] 70 U/L Normal 40-150 [facility] Comment on above: Performed By: #### L AB103, LAB17, [id number] ####Licensed Embalmer: REJI HAMILTON ([id number])[facility] ([facility])[address] [place] [address] ALT [Catalytic activity/Vol] 6 U/L Normal <30 [facility] Comment on above: Performed By: #### L AB103, LAB17, [id number] ####Licensed Embalmer: REJI HAMILTON ([id number])[facility] ([facility])[address] Anion gap [Moles/Vol] 13 mmol/L Normal 3-13 [facility] Comment on above: Performed By: #### L AB103, LAB17, [id number] ####Licensed Embalmer: REJI HAMILTON ([id number])[place] [facility] (SBHLAB)[address] AST [Catalytic activity/Vol] 22 U/L Normal <34 [facility] Comment on above: Performed By: #### L AB103, LAB17, [id number] ####Licensed Embalmer: REJI HAMILTON ([id number])[facility] [place] (SBHLAB)[address] Bilirubin [Mass/Vol] 0.7 mg/dL Normal <1.2 [facility] Comment on above: Performed By: #### Gómez LEVINE, LAB17, [id number] ####Licensed Embalmer: REJI HAMILTON ([id number])[facility] [place] (SBHLAB)[address] Calcium [Mass/Vol] 8.3 mg/dL Low 8.8-10.0 [facility] Comment on above: Performed By: #### Gómez AB103, LAB17, [id number] ####Licensed Embalmer: REJI HAMILTON ([id number])[facility] (SB[facility]AB)[address] [place] [address] [place] Chloride [Moles/Vol] 106 mmol/L Normal 98-107 [facility] Comment on above: Performed By: #### L AB103, LAB17, [id number] ####Licensed Embalmer: REJI HAMILTON ([id number])[facility] [place] (SBHLAB)[address] [place] [address] [place] CO2 [Moles/Vol] 25 mmol/L Normal 23-31 [facility] Comment on above: Performed By: #### L ABBridger, LAB17, [id number] ####Licensed Embalmer: REJI HAMILTON ([id number])[facility] [place] (SBHLAB)[address] Creatinine [Mass/Vol] 1.10 mg/dL Normal 0.57-1.11 [facility] Comment on above: Performed By: #### L AB103, LAB17, [id number] ####Licensed Embalmer: REJI HAMILTON ([id number])[facility] (SBHLAB)[address] [place] [address] [place] GLOMERULAR FILTRATION RATE ML/MIN/1.73 SQ M.PREDICTED 52.2 mL/min/1.73m*2 Low >60.0 [facility] Comment on above: Result Comment: Calc ulation based on the Chronic Kidney Disease Epidemiology Collaboration (CKD-EPI) equation refit without adjustment for race Performed By: #### L AB103, LAB17, [id number] ####Licensed Embalmer: REJI HAMILTON ([id number])[facility] ([facility])[address] Glucose [Mass/Vol] 290 mg/dL High 82-115 [facility] Comment on above: Performed By: #### L AB103, LAB17, [id number] ####Licensed Embalmer: REJI HAMILTON ([id number])[facility] (SBHLAB)[address] [place] [address] Potassium [Moles/Vol] 4.1 mmol/L Normal 3.5-5.1 [facility] Comment on above: Result Comment: [facility] potassium values may be up to 0.5 mmol/L lower than serum values. Performed By: #### L AB103, LAB17, [id number] ####Licensed Embalmer: REJI HAMILTON ([id number])[facility] (SBHLAB)[address] Protein [Mass/Vol] 6.0 g/dL Low 6.4-8.3 [facility] Comment on above: Performed By: #### L AB103, LAB17, [id number] ####Licensed Embalmer: REJI HAMILTON ([id number])[facility] (SBHLAB)[address] Sodium [Moles/Vol] 144 mmol/L Normal 136-145 [facility] Comment on above: Performed By: #### L AB103, LAB17, [id number] ####Licensed Embalmer: REJI HAMILTON ([id number])[facility]ITAL[facility] SER[facility] (SBHLAB)[address] Urea nitrogen [Mass/Vol] 28 mg/dL High 9-23 [facility] Comment on above: Performed By: #### L AB103, LAB17, [id number] ####Licensed Embalmer: REJI HAMILTON ([id number])[facility] (SBHLAB)[address] Calcium.ionized [Moles/Vol]O rdered By: Torres Bhatia on 10-10-2024 Calcium.ionized (Bld) [Moles/Vol] 4.2 mg/dL Low 4.30 - 5.20 mg/dL [facility] Interpretation and review of laboratory results Abnormal [facility] PH, IONIZED CALCIUM 7.36 7.31 - 7.46 [facility] Comprehensive metabolic 1998 panelon 10-10-2024 Albumin [Mass/Vol] 2.5 g/dL Low 3.4 - 4.8 g/dL [facility] ALP [Catalytic activity/Vol] 70 U/L 40 - 150 U/L [facility] ALT [Catalytic activity/Vol] 6 U/L NINF - 30 U/L [facility] Anion gap [Moles/Vol] 13 mmol/L 3 - 13 mmol/L [facility] AST [Catalytic activity/Vol] 22 U/L NINF - 34 U/L [facility] Bilirubin [Mass/Vol] 0.7 mg/dL NINF - 1.2 mg/dL [facility] Calcium [Mass/Vol] 8.3 mg/dL Low 8.8 - 10. 0 mg/dL [facility] Chloride [Moles/Vol] 106 mmol/L 98 - 10 7 mmol/L [facility] CO2 [Moles/Vol] 25 mmol/L 23 - 31 mmol/L [facility] Creatinine [Mass/Vol] 1.1 mg/dL 0.57 - 1.11 mg/dL [facility] GFR/1.73 sq M.predicted (S/P/Bld) [Vol rate/Area] 52.2 mL/min Low - PINF [facility] Glucose [Mass/Vol] 290 mg/dL High 82 - 115 mg/dL [facility] Interpretation and review of laboratory results Abnormal [facility] Potassium [Moles/Vol] 4.1 mmol/L 3.5 - 5.1 mmol/L [facility] Protein [Mass/Vol] 6 g/dL Low 6.4 - 8.3 g/dL [facility] Sodium [Moles/Vol] 144 mmol/L 136 - 145 mmol/L [facility] Urea nitrogen [Mass/Vol] 28 mg/dL High 9 - 23 mg/dL [facility] Consulton 10-10-2024 Consult Normal [facility] LACTIC ACID WITH REFLEXon Lactate [Moles/Vol] 2.6 mmol/L High 0.5-2.2 [facility] Comment on above: Performed By: #### L [id number] ####Licensed Embalmer: REJI HAMILTON ([id number])[facility] ([facility])[address] [place] [address] Lactate [Moles/Vol] 2.4 mmol/L High 0.5-2.2 [facility] Comment on above: Performed By: #### L [id number] ####Licensed Embalmer: REJI HAMILTON ([id number])[facility] ([facility])[address] [place] [address] Lactate [Moles/Vol] 3.1 mmol/L High 0.5-2.2 [facility] Comment on above: Performed By: #### L [id number] ####Licensed Embalmer: REJI HAMILTON ([id number])[facility] ([facility])[address] [place] [address] Lactate [Moles/Vol] 3.4 mmol/L High 0.5-2.2 [facility] Comment on above: Performed By: #### L [id number] ####Licensed Embalmer: REJI [id number])[facility] (SBHLAB)[address] Laboratory - Chemistry and C hemistry - challengeon 10-10-2024 Glucose [Mass/Vol] 289 mg/dL High 70 - 100 mg/dL [facility] Glucose [Mass/Vol] 232 mg/dL High 70 - 100 mg/dL [facility] Lactate [Moles/Vol] 2.6 mmol/L High 0.5 - 2. 2 mmol/L [facility] Glucose [Mass/Vol] 227 mg/dL High 70 - 100 mg/dL [facility] Lactate [Moles/Vol] 2.4 mmol/L High 0.5 - 2. 2 mmol/L [facility] Glucose [Mass/Vol] 226 mg/dL High 70 - 100 mg/dL [facility] Lactate [Moles/Vol] 3.1 mmol/L High 0.5 - 2. 2 mmol/L [facility] Magnesium [Mass/Vol] 1.9 mg/dL 1.6 - 2 .6 mg/dL [facility] Glucose [Mass/Vol] 273 mg/dL High 70 - 100 mg/dL [facility] Lactate [Moles/Vol] 3.4 mmol/L High 0.5 - 2. 2 mmol/L [facility] Laboratory - Drug toxicology on 10-10-2024 Vancomycin trough [Mass/Vol] 13.7 ug/mL [facility] MAGNESIUMon 10-10-2024 Magnesium [Mass/Vol] 1.9 mg/dL Normal 1.6-2.6 [facility] Comment on above: Result Comment: LANA Rangel COMMENTS:Higher values can be expected in females during menses. Performed By: #### L AB103, LAB17, [id number] ####Licensed Embalmer: REJI HAMILTON ([id number])[facility]ITAL[facility] (SBHLAB)[address] Magnesium [Mass/Vol]on 10-10 [facility] No Panel Informationon 10-10 Interpretation and review of laboratory results Abnormal [facility] Interpretation and review of laboratory results Abnormal [facility] Interpretation and review of laboratory results Abnormal [facility] Interpretation and review of laboratory results Abnormal [facility] Interpretation and review of laboratory results Abnormal [facility] Interpretation and review of laboratory results Abnormal [facility] Interpretation and review of laboratory results Abnormal [facility] Interpretation and review of laboratory results Normal [facility] Interpretation and review of laboratory results Abnormal [facility] Interpretation and review of laboratory results Abnormal [facility] No Panel InformationOrdered By: Charis Henderson on 10-10-2024 Coagulase-negative Staphylococcus Detected Abnormal Not Detected [facility] Interpretation and review of laboratory results Abnormal [facility] PHOSPHORUSon 10-10-2024 Phosphate [Mass/Vol] 3.7 mg/dL Normal 2.3-4.7 [facility] Comment on above: Performed By: #### L AB103, LAB17, [id number] ####Licensed Embalmer: REJI HAMILTON ([id number])[facility] ([facility])[address] [place] [address] [place] Phosphate [Moles/Vol]on 09-30 Phosphate [Mass/Vol] 3.7 mg/dL 2.3 - 4 .7 mg/dL [facility] Progress Noteon 10-10-2024 Progress Note Normal [facility] Progress Note Normal [facility] Progress Note Normal [facility] Progress Note Normal [facility] Progress Note Normal [facility] URINE CULTUREon 10-10-2024 Bacteria identified Cx Nom (U) Normal [facility] Comment on above: Performed By: #### L [id number] ####Licensed Embalmer: REJI HAMILTON ([id number])[facility] (SBHLAB)[address] [place] [address]#### [id number] ####Licensed Embalmer: MERLE RODRIGUES ([id number])[facility] ([facility]AC[facility])[address] [place] [address] Urinalysis complete panel (U )on 10-10-2024 Bacteria LM.HPF (Urine sed) [#/Area] Few Abnormal Negative /HPF [facility] Bilirubin Ql (U) Negative Negative mg/dL [facility] Clarity (U) Turbid Abnormal Clear [facility] Color (U) Yellow Lt. Yellow [facility] Epithelial cells.squamous LM.HPF (Urine sed) [#/Area] 3-5 [facility] Glucose Ql (U) 200 mg/dL Abnormal Normal (<70) [facility] Hemoglobin Ql (U) 1.0 mg/dL Abnormal Negative [facility] Interpretation and review of laboratory results Abnormal [facility] Ketones (U) [Mass/Vol] Negative Negat iris mg/dL [facility] Leukocyte clumps LM.HPF (Urine sed) [#/Area] Few Abnormal Negative /HPF [facility] Leukocyte esterase Test strip Ql (U) 250 Abnormal Negative Jimenez/uL [facility] Nitrite Ql (U) Negative Negative [facility] pH (U) 6.0 [pH] 5.0 - 8.0 pH [facility] Protein (U) [Mass/Vol] 100 mg/dL Abnormal Negative [facility] RBC LM.HPF (Urine sed) [#/Area] 26-50 Abnormal [facility] Specific gravity (U) [Rel density] 1.021 1.005 - 1.030 [facility] Urobilinogen (U) [Mass/Vol] Normal Normal (0-1) mg/dL [facility] WBC LM.HPF (Urine sed) [#/Area] 26-50 Abnormal [facility] VANCOMYCIN, AUC TIMED DOSING on 10-10-2024 VANCOMYCIN, AUC 13.7 ug/mL Normal [facility] Comment on above: Result Comment: LANA Rangel COMMENTS:Please draw random level at least >2 hours after the end of the last vancomycin infusion, or 30-minutes before next infusion.Toxicity is seen at concentrations >80-100 ug/mLTherapeutic (Peak) range: 20-40Therapeutic (Trough) range: 5-10 Performed By: #### L AB39 ####Licensed Embalmer: REJI HAMILTON ([id number])[facility] (SBAB)[address] [place] [address] Vancomycin trough [Mass/Vol] on 10-10-2024 [facility] [id number] 10-09-2024 [id number] Normal [facility] AMMONIAon 10-09-2024 Ammonia (P) [Moles/Vol] 22 umol/L Normal 18-72 [facility] Comment on above: Performed By: #### L AB47 ####Licensed Embalmer: REJI HAMILTON ([id number])[facility]ITAL[facility]issa CASTILLOBELLA (SBHLAB)[address] BLOOD CULTUREon 10-09-2024 Bacteria identified Cx Nom (Bld) Normal [facility] Comment on above: Performed By: #### L AB462, [id number] ####Licensed Embalmer: MERLE RODRIGUES ([id number])[facility] (SACLAB)[address] [place] [address] Bacteria identified Cx Nom (Bld) Normal [facility] Comment on above: Performed By: #### L [id number] ####Licensed Embalmer: MERLE RODRIGUES ([id number])[facility] ([facility])[address] [place] [address] BLOOD CULTURE IDENTIFICATION - AEROBICon 10-09-2024 BLOOD CULTURE IDENTIFICATION - AEROBIC Normal [facility] Comment on above: Performed By: #### L AB462, [id number] ####Licensed Embalmer: MERLE RODRIGUES ([id number])[facility] ([facility])[address] [place] [address] BLOOD GAS, VENOUSon 10-10-19 25 AMOUNT OF OXYGEN Normal [facility] Comment on above: Result Comment: LANA Rangel COMMENTS:Assessment of oxygenation is best done with an arterial blood gas determination. Reference ranges for pO2, bicarbonate, and base excess are for mixed venous blood. Specimens drawn from a peripheral vein will often have higher values. Performed By: #### L AB79 ####Licensed Embalmer: REJI HAMILTON ([id number])[facility]ITALMelissa JAELYNBELLA (SBHLAB)[address] [place] [address] Base excess Calc (BldV) [Moles/Vol] 1.4 mmol/L Normal -3.0-3.0 [facility] Comment on above: Performed By: #### L AB79 ####Licensed Embalmer: REJI HAMILTON ([id number])[facility]ITALMelissa CASTILLOBELLA (SBHLAB)[address] [place] [address] [place] CO2 [Moles/Vol] 31.9 mmol/L High 23.0-30.0 [facility] Comment on above: Performed By: #### L AB79 ####Licensed Embalmer: REJI HAMILTON ([id number])[facility] [place] (SBHLAB)[address] HCO3 (Bld) [Moles/Vol] 29.9 mmol/L Normal 21.0-30.0 [facility] Comment on above: Performed By: #### L AB79 ####Licensed Embalmer: REJI HAMILTON ([id number])[facility] (SBHLAB)[address] Hemoglobin (Bld) [Mass/Vol] 13.9 g/dL Normal Screen only [facility] Comment on above: Performed By: #### L AB79 ####Licensed Embalmer: REJI HAMILTON ([id number])[facility] (SBHLAB)[address] OXYGEN (MM HG) IN VENOUS BLOOD 32.6 mm Hg Normal [facility] Comment on above: Performed By: #### L AB79 ####Licensed Embalmer: REJI HAMILTON ([id number])[facility] (SBHLAB)[address] OXYGEN SATURATION (%) IN VENOUS BLOOD 58.1 % Normal [facility] Comment on above: Performed By: #### L AB79 ####Licensed Embalmer: REJI HAMILTON ([id number])[facility] (SBHLAB)[address] [place] [address] [place] PCO2, DAVID 65.3 mm Hg High 35.0-53.0 [facility] Comment on above: Performed By: #### L AB79 ####Licensed Embalmer: REJI HAMILTON ([id number])[facility] (SBHLAB)[address] PH VENOUS 7.278 Low 7.320-7.420 [facility] Comment on above: Performed By: #### L AB79 ####Licensed Embalmer: REJI HAMILTON ([id number])[facility] (SBHLAB)[address] SOURCE OF OXYGEN Nasal Cannula (LPM) Normal [facility] Comment on above: Performed By: #### L AB79 ####Licensed Embalmer: REJI BAUTISTACAIN ([id number])[facility] (SBHLAB)[address] CBC W Auto Differential pane l (Bld)on 10-09-2024 Basophils (Bld) [#/Vol] 0 10*3/uL 0.0 - 0.2 10*3/uL [facility] Basophils/100 WBC (Bld) 0.3 % 0.0 - 2.0 % [facility] Eosinophils (Bld) [#/Vol] 0 10*3/uL 0.0 - 0.5 10*3/uL [facility] Eosinophils/100 WBC (Bld) 0.3 % 0.0 - 6.0 % [facility] Erythrocyte distribution width (RBC) [Ratio] 14.6 % 11.5 - 15.0 % [facility] Hematocrit (Bld) [Volume fraction] 40.4 % 35.0 - 47.0 % [facility] Hemoglobin (Bld) [Mass/Vol] 12.9 g/dL 11.7 - 16.0 g/dL [facility] Immature granulocytes (Bld) [#/Vol] 0 10*3/uL NINF - 0.1 10*3/uL [facility] Immature granulocytes/100 WBC (Bld) 0.4 % 0.0 - 2.0 % [facility] Lymphocytes (Bld) [#/Vol] 1 10*3/uL 1.0 - 4.3 10*3/uL [facility] Lymphocytes/100 WBC (Bld) 13 % Low 15.0 - 45.0 % [facility] MCH (RBC) [Entitic mass] 31.8 pg 26.0 - 34.0 pg [facility] MCHC (RBC) [Mass/Vol] 31.9 % 30.5 - 36.0 % [facility] MCV (RBC) [Entitic vol] 99.5 fL High 77.0 - 99.0 fL [facility] Monocytes (Bld) [#/Vol] 0.5 10*3/uL 0.0 - 0.9 10*3/uL [facility] Monocytes/100 WBC (Bld) 6.4 % 5.0 - 13.0 % [facility] Neutrophils (Bld) [#/Vol] 6 10*3/uL 1.8 - 7.5 10*3/uL [facility] Neutrophils/100 WBC (Bld) 79.6 % 38.0 - 82.0 % [facility] Nucleated RBC/100 WBC (Bld) [Ratio] 0 % [facility] Platelet mean volume (Bld) [Entitic vol] 11.7 fL 9.0 - 12.7 fL [facility] Platelets (Bld) [#/Vol] 192 10*3/uL 140 - 440 10*3/uL [facility] RBC (Bld) [#/Vol] 4.06 10*6/uL 3.80 - 5.2 0 10*6/uL [facility] WBC (Bld) [#/Vol] 7.6 10*3/uL 3.6 - 10.7 10*3/uL [facility] CBC WITH AUTO DIFFERENTIALon 10-09-2024 Basophils (Bld) [#/Vol] 0.0 10*3/uL Normal 0.0-0.2 [facility] Comment on above: Performed By: #### L [id number] ####Licensed Embalmer: REJI HAMILTON ([id number])[facility] ([facility])[address] [place] [address] Basophils/100 WBC (Bld) 0.3 % Normal 0.0-2.0 [facility] Comment on above: Performed By: #### L [id number] ####Licensed Embalmer: REJI HAMILTON ([id number])[facility] ([facility])[address] Eosinophils (Bld) [#/Vol] 0.0 10*3/uL Normal 0.0-0.5 [facility] Comment on above: Performed By: #### L [id number] ####Licensed Embalmer: REJI HAMILTON ([id number])[facility] [place] (SBHLAB)[address] Eosinophils/100 WBC (Bld) 0.3 % Normal 0.0-6.0 [facility] Comment on above: Performed By: #### L [id number] ####Licensed Embalmer: REJI HAMILTON ([id number])[facility] [place] (SBHLAB)[address] Erythrocyte distribution width (RBC) [Ratio] 14.6 % Normal 11.5-15.0 [facility] Comment on above: Performed By: #### L [id number] ####Licensed Embalmer: REJI HAMILTON ([id number])[facility] (SBHLAB)[address] [place] [address] Hematocrit (Bld) [Volume fraction] 40.4 % Normal 35.0-47.0 [facility] Comment on above: Performed By: #### L [id number] ####Licensed Embalmer: REJI HAMILTON ([id number])[facility] (SBHLAB)[address] [place] [address] Hemoglobin (Bld) [Mass/Vol] 12.9 g/dL Normal 11.7-16.0 [facility] Comment on above: Performed By: #### L [id number] ####Licensed Embalmer: REJI HAMILTON ([id number])[facility] [place] (SBHLAB)[address] [place] [address] IMMATURE GRANS % 0.4 % Normal 0.0-2.0 [facility] Comment on above: Performed By: #### L [id number] ####Licensed Embalmer: REJI HAMILTON ([id number])[facility] [place] (SBHLAB)[address] [place] [address] IMMATURE GRANS ABSOLUTE 0.0 10*3/uL Normal <0.1 [facility] Comment on above: Performed By: #### L [id number] ####Licensed Embalmer: REJI HAMILTON ([id number])[facility] [place] (SBHLAB)[address] Lymphocytes (Bld) [#/Vol] 1.0 10*3/uL Normal 1.0-4.3 [facility] Comment on above: Performed By: #### L [id number] ####Licensed Embalmer: REJI HAMILTON ([id number])[facility] [place] (SBHLAB)[address] Lymphocytes/100 WBC (Bld) 13.0 % Low 15.0-45.0 [facility] Comment on above: Performed By: #### L [id number] ####Licensed Embalmer: REJI HAMILTON ([id number])[facility] [place] (SBHLAB)[address] MCH (RBC) [Entitic mass] 31.8 pg Normal 26.0-34.0 [facility] Comment on above: Performed By: #### L [id number] ####Licensed Embalmer: REJI HAMILTON ([id number])[facility] [place] (SBHLAB)[address] MCHC 31.9 % Normal 30.5-36.0 [facility] Comment on above: Performed By: #### L [id number] ####Licensed Embalmer: REJI HAMILTON ([id number])[facility] [place] (SBHLAB)[address] [place] [address] MCV (RBC) [Entitic vol] 99.5 fL High 77.0-99.0 [facility] Comment on above: Performed By: #### L [id number] ####Licensed Embalmer: REJI HAMILTON ([id number])[facility] [place] (SBHLAB)[address] Monocytes (Bld) [#/Vol] 0.5 10*3/uL Normal 0.0-0.9 [facility] Comment on above: Performed By: #### L [id number] ####Licensed Embalmer: REJI HAMILTON ([id number])[facility] [place] (SBHLAB)[address] Monocytes/100 WBC (Bld) 6.4 % Normal 5.0-13.0 [facility] Comment on above: Performed By: #### L [id number] ####Licensed Embalmer: REJI HAMILTON ([id number])[facility] [place] (SBHLAB)[address] NEUTROPHILS ABSOLUTE 6.0 10*3/uL Normal 1.8-7.5 [facility] Comment on above: Performed By: #### L [id number] ####Licensed Embalmer: REJI HAMILTON ([id number])[facility] [place] (SBHLAB)[address] Neutrophils/100 WBC (Bld) 79.6 % Normal 38.0-82.0 [facility] Comment on above: Performed By: #### L [id number] ####Licensed Embalmer: REJI HAMILTON ([id number])[facility] [place] (SBHLAB)[address] NRBC 0.0 /100 WBCs Normal 0.0-2.0 [facility] Comment on above: Performed By: #### L [id number] ####Licensed Embalmer: REJI HAMILTON ([id number])[facility] [place] (SBHLAB)[address] Platelet mean volume (Bld) [Entitic vol] 11.7 fL Normal 9.0-12.7 [facility] Comment on above: Performed By: #### L [id number] ####Licensed Embalmer: REJI HAMILTON ([id number])[facility] [place] (SBHLAB)[address] [place] [address] [place] Platelets (Bld) [#/Vol] 192 10*3/uL Normal 140-440 [facility] Comment on above: Performed By: #### L [id number] ####Licensed Embalmer: REJI HAMILTON ([id number])[facility] [place] (SBHLAB)[address] RBC (Bld) [#/Vol] 4.06 10*6/uL Normal 3.80-5.20 [facility] Comment on above: Performed By: #### L [id number] ####Licensed Embalmer: REJI HAMILTON ([id number])[facility]OSPITALMelissa CASTILLOREHOBOTH MCKINLEY CHRIST[facility] CARE SERVICESN (SBHLAB)[address] WBC (Bld) [#/Vol] 7.6 10*3/uL Normal 3.6-10.7 [facility] Comment on above: Performed By: #### L [id number] ####Licensed Embalmer: REJI HAMILTON ([id number])[facility]OSPITALMelissa OJIBWA (SBHLAB)[address] COMPREHENSIVE METABOLIC PANE Fernando 10-09-2024 Albumin [Mass/Vol] 2.8 g/dL Low 3.4-4.8 [facility] Comment on above: Performed By: #### L [id number], LAB17, [id number] ####Licensed Embalmer: REJI HAMILTON ([id number])[facility]OSPITALMelissa OJIBWA (SBHLAB)[address] ALP [Catalytic activity/Vol] 86 U/L Normal 40-150 [facility] Comment on above: Performed By: #### L [id number], LAB17, [id number] ####Licensed Embalmer: REJI HAMILTON ([id number])[facility] (SBHLAB)[address] ALT [Catalytic activity/Vol] U/L Normal <30 [facility] Comment on above: Performed By: #### L [id number], LAB17, [id number] ####Licensed Embalmer: REJI HAMILTON ([id number])[facility] (SBHLAB)[address] Anion gap [Moles/Vol] 14 mmol/L High 3-13 [facility] Comment on above: Performed By: #### L [id number], LAB17, [id number] ####Licensed Embalmer: REJI HAMILTON ([id number])[facility]OSPITALMelissa SERNA (SBHLAB)[address] [place] [address] [place] AST [Catalytic activity/Vol] 21 U/L Normal <34 [facility] Comment on above: Performed By: #### L [id number], LAB17, [id number] ####Licensed Embalmer: REJI BAUTISTACAIN ([id number])[facility]OSPITALMelissa CASTILLOREHOB[facility] MCK[facility] CARE SERVICESN (SBHLAB)[address] Bilirubin [Mass/Vol] 0.7 mg/dL Normal <1.2 [facility] Comment on above: Performed By: #### L [id number], LAB17, [id number] ####Licensed Embalmer: REJI BAUTISTACAIN ([id number])[facility]ITALMelissa SERNA (SBHLAB)[address] Calcium [Mass/Vol] 8.7 mg/dL Low 8.8-10.0 [facility] Comment on above: Performed By: #### Gómez [id number], LAB17, [id number] ####Licensed Embalmer: REJI HAMILTON ([id number])[facility]OSPITALMelissa CA[facility]OBAN[facility] (SBHLAB)[address] [place] [address] [place] Chloride [Moles/Vol] 103 mmol/L Normal 98-107 [facility] Comment on above: Performed By: #### L [id number], LAB17, [id number] ####Licensed Embalmer: REJI HAMILTON ([id number])[facility]ITALMelissa CA[facility]OREH[facility] SERVICESN (SBHLAB)[address] [place] [address] [place] CO2 [Moles/Vol] 27 mmol/L Normal 23-31 [facility] Comment on above: Performed By: #### L [id number], LAB17, [id number] ####Licensed Embalmer: REJI HAMILTON ([id number])[facility]ITALMelissa [facility] (SBHLAB)[address] Creatinine [Mass/Vol] 1.15 mg/dL High 0.57-1.11 [facility] Comment on above: Performed By: #### L [id number], LAB17, [id number] ####Licensed Embalmer: REJI HAMILTON ([id number])[facility] (SBHLAB)[address] [place] [address] [place] GLOMERULAR FILTRATION RATE ML/MIN/1.73 SQ M.PREDICTED 49.5 mL/min/1.73m*2 Low >60.0 [facility] Comment on above: Result Comment: Calc ulation based on the Chronic Kidney Disease Epidemiology Collaboration (CKD-EPI) equation refit without adjustment for race Performed By: #### L [id number], LAB17, [id number] ####Licensed Embalmer: REJI HAMILTON ([id number])[facility] (SBHLAB)[address] Glucose [Mass/Vol] 291 mg/dL High 82-115 [facility] Comment on above: Performed By: #### L [id number], LAB17, [id number] ####Licensed Embalmer: REJI HAMILTON ([id number])[facility] (SBHLAB)[address] Potassium [Moles/Vol] 4.2 mmol/L Normal 3.5-5.1 [facility] Comment on above: Result Comment: [facility] potassium values may be up to 0.5 mmol/L lower than serum values. Performed By: #### L [id number], LAB17, [id number] ####Licensed Embalmer: REJI HAMILTON ([id number])[facility] (SBHLAB)[address] [place] [address] [place] Protein [Mass/Vol] 6.7 g/dL Normal 6.4-8.3 [facility] Comment on above: Performed By: #### L [id number], LAB17, [id number] ####Licensed Embalmer: REJI HAMILTON ([id number])[facility] (SBHLAB)[address] Sodium [Moles/Vol] 144 mmol/L Normal 136-145 [facility] Comment on above: Performed By: #### L [id number], LAB17, [id number] ####Licensed Embalmer: REJI HAMILTON ([id number])[facility]OS[facility]ITALMelissa SERNA (SBHLAB)[address] Urea nitrogen [Mass/Vol] 29 mg/dL High 9-23 [facility] Comment on above: Performed By: #### L [id number], LAB17, [id number] ####Licensed Embalmer: REJI HAMILTON ([id number])[facility]ITALMelissa SERNA (SBHLAB)[address] Abdomen and Pelvis WO and W contrast Anselmo 10-09-2024 [facility] Radiology Study observation (narrative) [facility] CT Abdomen and Pelvis WO and W contrast IVOrdered By: Carlos Martinez on 10-09-2024 [facility] Work Phone: CT CHEST ABDOMEN PELVIS WO C ONTRASTon 10-09-2024 CT CHEST ABDOMEN PELVIS WO CONTRAST Normal [facility] CT HEAD WO IV CONTRASTon CT HEAD WO IV CONTRAST Normal [facility] CT Head WO contraston 2024 [facility] Radiology Study observation (narrative) [facility] CT Head WO contrastOrdered B y: Sy Akins on 10-09-2024 [facility] Work Phone: CT LOWER EXTREMITY RIGHT WO IV CONTRASTon 10-09-2024 CT LOWER EXTREMITY RIGHT WO IV CONTRAST Normal [facility] CT Lower extremity - right W O contraston 10-09-2024 [facility] Radiology Study observation (narrative) [facility] Comprehensive metabolic 1998 panelon 10-09-2024 Albumin [Mass/Vol] 2.8 g/dL Low 3.4 - 4.8 g/dL [facility] ALP [Catalytic activity/Vol] 86 U/L 40 - 150 U/L [facility] ALT [Catalytic activity/Vol] U/L NINF - 30 U/L [facility] Anion gap [Moles/Vol] 14 mmol/L High 3 - 13 mmol/L [facility] AST [Catalytic activity/Vol] 21 U/L NINF - 34 U/L [facility] Bilirubin [Mass/Vol] 0.7 mg/dL NINF - 1.2 mg/dL [facility] Calcium [Mass/Vol] 8.7 mg/dL Low 8.8 - 10. 0 mg/dL [facility] Chloride [Moles/Vol] 103 mmol/L 98 - 10 7 mmol/L [facility] CO2 [Moles/Vol] 27 mmol/L 23 - 31 mmol/L [facility] Creatinine [Mass/Vol] 1.15 mg/dL High 0.57 - 1.11 mg/dL [facility] GFR/1.73 sq M.predicted (S/P/Bld) [Vol rate/Area] 49.5 mL/min Low - PINF [facility] Glucose [Mass/Vol] 291 mg/dL High 82 - 115 mg/dL [facility] Interpretation and review of laboratory results Abnormal [facility] Potassium [Moles/Vol] 4.2 mmol/L 3.5 - 5.1 mmol/L [facility] Protein [Mass/Vol] 6.7 g/dL 6.4 - 8.3 g/dL [facility] Sodium [Moles/Vol] 144 mmol/L 136 - 145 mmol/L [facility] Urea nitrogen [Mass/Vol] 29 mg/dL High 9 - 23 mg/dL [facility] Consulton 10-09-2024 Consult Normal [facility] ED Nursing Noteon 10-09-2024 ED Nursing Note Per ICU, pt to go to CT before coming up. CT called. CT unsure when pt would be next. Normal [facility] ED Nursing Note Report called. Normal [facility] ED Nursing Note Per Dr Mercedes, sta rt antibiotics. ICU aware pt still needs blood cx. Normal [facility] ED Nursing Note Multiple attempts ma de for IV access. Able to place 22g in right chest area and 20g ultra sound IV in R AC. PA and Dr Mercedes notified pt will need a poss central line for better access. Unable to draw blood cx at this time. Normal [facility] ED Nursing Note Pt here to the ER vi a EMS for altered metal status that started today. Pt has hx of dementia. Pt not answering questions. Pt is moaning and tense. Pt looks at you when calling her name. Per EMS pt was started on antibiotic for UTI. Normal [facility] ED Provider Noteon ED Provider Note Normal [facility] HEMOGLOBIN A1Con 10-09-2024 Glucose [Mass/Vol] 194 mg/dL Normal [facility] Comment on above: Result Comment: LANA R COMMENTS:If not done within the last 3 [id number] values of 5.7-6.4 percent indicate an increased risk for developing diabetes mellitus. HbA1c values greater than or equal to 6.5 percent are diagnostic of diabetes mellitus. For diagnosis of diabetes in individuals without unequivocal hyperglycemia, results should be confirmed by repeat testing. Performed By: #### L [id number] ####Licensed Embalmer: REJI HAMILTON ([id number])[facility] ([facility])[address] [place] [address] HEMOGLOBIN A1C 8.4 %HbA1C High <5.7 [facility] Comment on above: Result Comment: Norm al less than 5.7%Prediabetes 5.7% to 6.4%Diabetes 6.5% or higher--HgbA1C levels may not be accurate in patients who have renal disease, received recent blood transfusions, are anemic, or who have dyshemoglobinemia. Performed By: #### L [id number] ####Licensed Embalmer: REJI HAMILTON ([id number])[facility] ([facility])[address] [place] [address] HIGH SENSITIVITY TROPONIN, S ERIAL BASELINEon 10-09-2024 TROPONIN HS SERIAL BASELINE 18 ng/L High <=14 [facility] Comment on above: Result Comment: In i ndividuals presenting with symptoms > 2h, a baseline troponin <= 5 ng/L suggests acutecardiac injury is unlikely and further serial testing is generally not indicated. Performed By: #### L [id number], LAB17, [id number] ####Licensed Embalmer: REJI HAMILTON ([id number])[facility] ([facility])[address] [place] [address] HIGH SENSITIVITY TROPONIN, S ERIAL, SECOND TESTon 10-09-2024 2H TROPONIN HS (SERIAL 2ND TROPONIN) 22 ng/L High <=14 [facility] Comment on above: Result Comment: 2h t roponin (2nd troponin) samples collected between 1h 40 min and 2h and 20 min of the baseline collection time can be utilized to interpret delta troponins as per [facility] algorithms. Samples collected outside this timeframe need to be interpreted clinically.Rising or falling troponin delta between 2 ??? 15 ng/L as compared to baseline value requires a 3rd serial troponin Performed By: #### L [id number] ####Licensed Embalmer: REJI HAMILOTN ([id number])[facility] ([facility])[address] [place] [address] HIGH SENSITIVITY TROPONIN, S ERIAL, THIRD TESTon 10-09-2024 4H TROPONIN HS (SERIAL 3RD TROPONIN) 20 ng/L High <=14 [facility] Comment on above: Result Comment: Risi ng or falling troponin delta below 2 ng/L as compared to 2h troponin value suggeststhat acute cardiac injury is unlikely. Performed By: #### L [id number] ####Licensed Embalmer: REJI HAMILTON ([id number])[facility] ([facility])[address] [place] [address] LACTIC ACID WITH REFLEXon Lactate [Moles/Vol] 5.2 mmol/L Critically high 0.5-2.2 [facility] Comment on above: Performed By: #### L [id number] ####Licensed Embalmer: REJI HAMILTON ([id number])[facility] ([facility])[address] [place] [address] Laboratory - Chemistry and C hemistry - challengeon 10-09-2024 Glucose [Mass/Vol] 299 mg/dL High 70 - 100 mg/dL [facility] Average glucose Estimated from glycated hemoglobin (Bld) [Mass/Vol] 194 mg/dL [facility] Ammonia (P) [Moles/Vol] 22 umol/L 18 - 72 umol/L [facility] Glucose [Mass/Vol] 266 mg/dL High 70 - 100 mg/dL [facility] Laboratory - Chemistry and C hemistry - challengeOrdered By: Dina Baires on 10-09-2024 Lactate [Moles/Vol] 5.2 mmol/L Critically high 0.5 - 2.2 mmol/L [facility] Laboratory - Chemistry and C hemistry - challengeOrdered By: Susan Herzog on 10-09-2024 Base excess Calc (BldV) [Moles/Vol] 1.4 mmol/L -3.0 - 3.0 mmol/L [facility] CO2 (BldV) [Partial pressure] 65.3 mm[Hg] High [facility] CO2 [Moles/Vol] 31.9 mmol/L High 23.0 - 30.0 mmol/L [facility] HCO3 (Bld) [Moles/Vol] 29.9 mmol/L 21.0 - 30.0 mmol/L [facility] Oxygen (BldV) [Partial pressure] 32.6 mm[Hg] mm Hg [facility] pH (BldV) 7.278 [pH] Low 7.320 - 7.420 [facility] Laboratory - Hematology and Cell countson 10-09-2024 HbA1c (Bld) [Mass fraction] 8.4 % High [facility] Laboratory - Hematology and Cell countsOrdered By: Ssuan Herzog on 10-09-2024 Hemoglobin (Bld) [Mass/Vol] 13.9 g/dL 12.0 - 16.0 g/dl [facility] NT PRO BNPon 10-09-2024 Natriuretic peptide B (Bld) [Mass/Vol] 427 pg/mL Normal <450 [facility] Comment on above: Performed By: #### L [id number], LAB17, [id number] ####Licensed Embalmer: REJI HAMILTON ([id number])[facility] ([address] Natriuretic peptide B [Mass/ Vol]on 10-09-2024 Interpretation and review of laboratory results Normal [facility] Natriuretic peptide B (Bld) [Mass/Vol] 427 pg/mL NINF - 450 pg/mL [facility] No Panel Informationon 10-09 4h Troponin HS (Serial 3rd Troponin) 20 ng/L High NINF - 14 ng/L [facility] Interpretation and review of laboratory results Abnormal [facility] Interpretation and review of laboratory results Abnormal [facility] 2h Troponin HS (Serial 2nd Troponin) 22 ng/L High NINF - 14 ng/L [facility] Interpretation and review of laboratory results Abnormal [facility] Interpretation and review of laboratory results Abnormal [facility] Interpretation and review of laboratory results Abnormal [facility] Troponin HS Serial Baseline 18 ng/L High NINF - 14 ng/L [facility] Interpretation and review of laboratory results Normal [facility] Interpretation and review of laboratory results Abnormal [facility] Interpretation and review of laboratory results Abnormal [facility] No Panel InformationOrdered By: Dina Baires on 10-09-2024 Interpretation and review of laboratory results Abnormal [facility] No Panel InformationOrdered By: Susan Herzog on 10-09-2024 Source Of Oxygen Nasal Cannula (LPM) [facility] Vital signsOrdered By: Susan Herzog on 10-09-2024 Oxygen saturation in Venous blood 58.1 % [facility] XR Chest Single viewon 10-09 [facility] RADIOLOGY [facility] Radiology Study observation (narrative) [facility] RADIOLOGY [facility] Radiology Study observation (narrative) [facility] XR Chest Single viewOrdered By: Julio Cesar Madison on 10-09-2024 [facility] Work Phone: Progress Noteon 02-25-2024 Progress Note Normal [facility] Laboratory - Chemistry and C hemistry - challengeon 01-03-2024 Glucose [Mass/Vol] 326 mg/dL High 70 - 100 mg/dL [facility] Glucose [Mass/Vol] 331 mg/dL High 70 - 100 mg/dL [facility] No Panel Informationon 01-02 There is no interpre tation needed for this exam. IMAGING Interpretation and review of laboratory results Abnormal [facility] Performed by: [facility], [address] [place] [id number] CLIA ID: [id number] [facility] Interpretation and review of laboratory results Abnormal [facility] Performed by: [facility], [address] [place] [id number] CLIA ID: [id number] [facility] Bacteria identified Cx Nom ( Bld)on 11-29-2023 Interpretation and review of laboratory results Normal [facility] Bacteria identified Cx Nom ( Bld)Ordered By: Adwoa Jefferson on 11-29-2023 Interpretation and review of laboratory results Abnormal [facility] Basic metabolic 1998 panelon 11-29-2023 Anion gap [Moles/Vol] 1 mmol/L Low 3 - 13 mmol/L [facility] Calcium [Mass/Vol] 8.0 mg/dL Low 8.4 - 10. 4 mg/dL [facility] Chloride [Moles/Vol] 108 mmol/L High 98 - 10 7 mmol/L [facility] CO2 [Moles/Vol] 27 mmol/L 22 - 30 mmol/L [facility] Creatinine [Mass/Vol] 0.76 mg/dL 0.52 - 1.04 mg/dL [facility] GFR/1.73 sq M.predicted (S/P/Bld) [Vol rate/Area] 81.8 mL/min - PINF [facility] Glucose [Mass/Vol] 206 mg/dL High 70 - 100 mg/dL [facility] Interpretation and review of laboratory results Abnormal [facility] Potassium [Moles/Vol] 3.8 mmol/L 3.5 - 5.1 mmol/L [facility] Sodium [Moles/Vol] 136 mmol/L 135 - 145 mmol/L [facility] Urea nitrogen [Mass/Vol] 20 mg/dL High 7 - 17 mg/dL [facility] CBC W Auto Differential pane l (Bld)on 11-29-2023 Basophils (Bld) [#/Vol] 0.0 10*3/uL 0.0 - 0.2 10*3/uL [facility] Basophils/100 WBC (Bld) 0.6 % 0.0 - 2.0 % [facility] Eosinophils (Bld) [#/Vol] 0.3 10*3/uL 0.0 - 0.5 10*3/uL [facility] Eosinophils/100 WBC (Bld) 5.5 % 0.0 - 6.0 % [facility] Erythrocyte distribution width (RBC) [Ratio] 16.0 % High 11.5 - 15.0 % [facility] Hematocrit (Bld) [Volume fraction] 32.2 % Low 35.0 - 47.0 % [facility] Hemoglobin (Bld) [Mass/Vol] 10.1 g/dL Low 11.7 - 16.0 g/dL [facility] Immature granulocytes (Bld) [#/Vol] 0.0 10*3/uL NINF - 0.1 10*3/uL [facility] Immature granulocytes/100 WBC (Bld) 0.2 % 0.0 - 2.0 % [facility] Interpretation and review of laboratory results Abnormal [facility] Lymphocytes (Bld) [#/Vol] 1.5 10*3/uL 1.0 - 4.3 10*3/uL [facility] Lymphocytes/100 WBC (Bld) 30.1 % 15.0 - 45.0 % [facility] MCH (RBC) [Entitic mass] 30.9 pg 26.0 - 34.0 pg [facility] MCHC (RBC) [Mass/Vol] 31.4 % 30.5 - 36.0 % [facility] MCV (RBC) [Entitic vol] 98.5 fL 77.0 - 99.0 fL [facility] Monocytes (Bld) [#/Vol] 0.5 10*3/uL 0.0 - 0.9 10*3/uL [facility] Monocytes/100 WBC (Bld) 8.8 % 5.0 - 13.0 % [facility] Neutrophils (Bld) [#/Vol] 2.8 10*3/uL 1.8 - 7.5 10*3/uL [facility] Neutrophils/100 WBC (Bld) 54.8 % 38.0 - 82.0 % [facility] Nucleated RBC/100 WBC (Bld) [Ratio] 0.0 % [facility] Platelet mean volume (Bld) [Entitic vol] 11.0 fL 9.0 - 12.7 fL [facility] Platelets (Bld) [#/Vol] 152 10*3/uL 140 - 440 10*3/uL [facility] RBC (Bld) [#/Vol] 3.27 10*6/uL Low 3.80 - 5.2 0 10*6/uL [facility] WBC (Bld) [#/Vol] 5.1 10*3/uL 3.6 - 10.7 10*3/uL [facility] Basophils (Bld) [#/Vol] 0.0 10*3/uL 0.0 - 0.2 10*3/uL [facility] Basophils/100 WBC (Bld) 0.4 % 0.0 - 2.0 % [facility] Eosinophils (Bld) [#/Vol] 0.3 10*3/uL 0.0 - 0.5 10*3/uL [facility] Eosinophils/100 WBC (Bld) 5.5 % 0.0 - 6.0 % [facility] Erythrocyte distribution width (RBC) [Ratio] 16.0 % High 11.5 - 15.0 % [facility] Hematocrit (Bld) [Volume fraction] 30.2 % Low 35.0 - 47.0 % [facility] Hemoglobin (Bld) [Mass/Vol] 9.4 g/dL Low 11.7 - 16.0 g/dL [facility] Immature granulocytes (Bld) [#/Vol] 0.0 10*3/uL NINF - 0.1 10*3/uL [facility] Immature granulocytes/100 WBC (Bld) 0.2 % 0.0 - 2.0 % [facility] Interpretation and review of laboratory results Abnormal [facility] Lymphocytes (Bld) [#/Vol] 1.7 10*3/uL 1.0 - 4.3 10*3/uL [facility] Lymphocytes/100 WBC (Bld) 36.4 % 15.0 - 45.0 % [facility] MCH (RBC) [Entitic mass] 31.3 pg 26.0 - 34.0 pg [facility] MCHC (RBC) [Mass/Vol] 31.1 % 30.5 - 36.0 % [facility] MCV (RBC) [Entitic vol] 100.7 fL High 77.0 - 99.0 fL [facility] Monocytes (Bld) [#/Vol] 0.4 10*3/uL 0.0 - 0.9 10*3/uL [facility] Monocytes/100 WBC (Bld) 8.8 % 5.0 - 13.0 % [facility] Neutrophils (Bld) [#/Vol] 2.3 10*3/uL 1.8 - 7.5 10*3/uL [facility] Neutrophils/100 WBC (Bld) 48.7 % 38.0 - 82.0 % [facility] Nucleated RBC/100 WBC (Bld) [Ratio] 0.0 % [facility] Platelet mean volume (Bld) [Entitic vol] 11.2 fL 9.0 - 12.7 fL [facility] Platelets (Bld) [#/Vol] 144 10*3/uL 140 - 440 10*3/uL [facility] RBC (Bld) [#/Vol] 3.00 10*6/uL Low 3.80 - 5.2 0 10*6/uL [facility] WBC (Bld) [#/Vol] 4.8 10*3/uL 3.6 - 10.7 10*3/uL [facility] Laboratory - Chemistry and C hemistry - challengeon 11-29-2023 Glucose [Mass/Vol] 203 mg/dL High 70 - 100 mg/dL [facility] Glucose [Mass/Vol] 231 mg/dL High 70 - 100 mg/dL [facility] Glucose [Mass/Vol] 174 mg/dL High 70 - 100 mg/dL [facility] Laboratory - Microbiology an d Antimicrobial susceptibilityon 11-29-2023 Bacteria identified Cx Nom (Bld) No growth at 5 days [facility] Laboratory - Microbiology an d Antimicrobial susceptibilityOrdered By: Adwoa Jefferson on 11-29-2023 Bacteria identified Cx Nom (Bld) Staphylococcus hominis Critically abnormal [facility] Bacteria identified Cx Nom (Bld) Kocuria rosea Critically abnormal [facility] No Panel Informationon 11-28 Interpretation and review of laboratory results Abnormal [facility] Interpretation and review of laboratory results Abnormal [facility] Interpretation and review of laboratory results Abnormal [facility] Basic metabolic 1998 panelon 11-28-2023 Anion gap [Moles/Vol] 5 mmol/L 3 - 13 mmol/L [facility] Calcium [Mass/Vol] 8.4 mg/dL 8.4 - 10. 4 mg/dL [facility] Chloride [Moles/Vol] 108 mmol/L High 98 - 10 7 mmol/L [facility] CO2 [Moles/Vol] 23 mmol/L 22 - 30 mmol/L [facility] Creatinine [Mass/Vol] 0.61 mg/dL 0.52 - 1.04 mg/dL [facility] GFR/1.73 sq M.predicted (S/P/Bld) [Vol rate/Area] - PINF [facility] Glucose [Mass/Vol] 198 mg/dL High 70 - 100 mg/dL [facility] Interpretation and review of laboratory results Abnormal [facility] Potassium [Moles/Vol] 4.9 mmol/L 3.5 - 5.1 mmol/L [facility] Sodium [Moles/Vol] 137 mmol/L 135 - 145 mmol/L [facility] Urea nitrogen [Mass/Vol] 20 mg/dL High 7 - 17 mg/dL [facility] Laboratory - Chemistry and C hemistry - challengeon 11-28-2023 Glucose [Mass/Vol] 200 mg/dL High 70 - 100 mg/dL [facility] Glucose [Mass/Vol] 218 mg/dL High 70 - 100 mg/dL [facility] Glucose [Mass/Vol] 199 mg/dL High 70 - 100 mg/dL [facility] Glucose [Mass/Vol] 199 mg/dL High 70 - 100 mg/dL [facility] Glucose [Mass/Vol] 210 mg/dL High 70 - 100 mg/dL [facility] No Panel Informationon 11-27 Interpretation and review of laboratory results Abnormal [facility] Interpretation and review of laboratory results Abnormal [facility] Interpretation and review of laboratory results Abnormal [facility] Interpretation and review of laboratory results Abnormal [facility] Interpretation and review of laboratory results Abnormal [facility] XR Chest Single viewon 11-27 [facility] EM[facility]GENCY [facility]PART[facility] RADIOLOGY SYSTEM [facility] EMERGENCY DEPARTMENT RADIOLOGY SYSTEM [facility] Radiology Study observation (narrative) [facility] XR Chest Single viewOrdered By: Shana Horne on 11-28-2023 [facility] [employer] Work Phone: Basic metabolic 1998 panelon 11-27-2023 Anion gap [Moles/Vol] 6 mmol/L 3 - 13 mmol/L [facility] Calcium [Mass/Vol] 8.1 mg/dL Low 8.4 - 10. 4 mg/dL [facility] Chloride [Moles/Vol] 108 mmol/L High 98 - 10 7 mmol/L [facility] CO2 [Moles/Vol] 22 mmol/L 22 - 30 mmol/L [facility] Creatinine [Mass/Vol] 0.70 mg/dL 0.52 - 1.04 mg/dL [facility] GFR/1.73 sq M.predicted (S/P/Bld) [Vol rate/Area] - PINF [facility] Glucose [Mass/Vol] 284 mg/dL High 70 - 100 mg/dL [facility] Interpretation and review of laboratory results Abnormal [facility] Potassium [Moles/Vol] 4.7 mmol/L 3.5 - 5.1 mmol/L [facility] Sodium [Moles/Vol] 136 mmol/L 135 - 145 mmol/L [facility] Urea nitrogen [Mass/Vol] 23 mg/dL High 7 - 17 mg/dL [facility] CBC W Auto Differential pane l (Bld)Ordered By: Orville Cárdenas on 11-27-2023 Basophils (Bld) [#/Vol] 0.0 10*3/uL 0.0 - 0.2 10*3/uL [facility] Basophils/100 WBC (Bld) 0.5 % 0.0 - 2.0 % [facility] Eosinophils (Bld) [#/Vol] 0.2 10*3/uL 0.0 - 0.5 10*3/uL [facility] Eosinophils/100 WBC (Bld) 4.3 % 0.0 - 6.0 % [facility] Erythrocyte distribution width (RBC) [Ratio] 16.0 % High 11.5 - 15.0 % [facility] Hematocrit (Bld) [Volume fraction] 34.6 % Low 35.0 - 47.0 % [facility] Hemoglobin (Bld) [Mass/Vol] 10.7 g/dL Low 11.7 - 16.0 g/dL [facility] Immature granulocytes (Bld) [#/Vol] 0.0 10*3/uL NINF - 0.1 10*3/uL [facility] Immature granulocytes/100 WBC (Bld) 0.7 % 0.0 - 2.0 % [facility] Interpretation and review of laboratory results Abnormal [facility] Lymphocytes (Bld) [#/Vol] 1.0 10*3/uL 1.0 - 4.3 10*3/uL [facility] Lymphocytes/100 WBC (Bld) 23.6 % 15.0 - 45.0 % [facility] MCH (RBC) [Entitic mass] 31.1 pg 26.0 - 34.0 pg [facility] MCHC (RBC) [Mass/Vol] 30.9 % 30.5 - 36.0 % [facility] MCV (RBC) [Entitic vol] 100.6 fL High 77.0 - 99.0 fL [facility] Monocytes (Bld) [#/Vol] 0.3 10*3/uL 0.0 - 0.9 10*3/uL [facility] Monocytes/100 WBC (Bld) 7.8 % 5.0 - 13.0 % [facility] Neutrophils (Bld) [#/Vol] 2.7 10*3/uL 1.8 - 7.5 10*3/uL [facility] Neutrophils/100 WBC (Bld) 63.1 % 38.0 - 82.0 % [facility] Nucleated RBC/100 WBC (Bld) [Ratio] 0.0 % [facility] Platelet mean volume (Bld) [Entitic vol] 11.6 fL 9.0 - 12.7 fL [facility] Platelets (Bld) [#/Vol] 147 10*3/uL 140 - 440 10*3/uL [facility] RBC (Bld) [#/Vol] 3.44 10*6/uL Low 3.80 - 5.2 0 10*6/uL [facility] WBC (Bld) [#/Vol] 4.2 10*3/uL 3.6 - 10.7 10*3/uL [facility] Laboratory - Chemistry and C hemistry - challengeon 11-27-2023 Glucose [Mass/Vol] 228 mg/dL High 70 - 100 mg/dL [facility] Glucose [Mass/Vol] 248 mg/dL High 70 - 100 mg/dL [facility] Glucose [Mass/Vol] 305 mg/dL High 70 - 100 mg/dL [facility] Glucose [Mass/Vol] 353 mg/dL High 70 - 100 mg/dL [facility] No Panel Informationon 11-26 Interpretation and review of laboratory results Abnormal [facility] Interpretation and review of laboratory results Abnormal [facility] Interpretation and review of laboratory results Abnormal [facility] Interpretation and review of laboratory results Abnormal [facility] Bacteria identified Cx Nom ( U)on 11-26-2023 Interpretation and review of laboratory results Abnormal [facility] Basic metabolic 1998 panelon 11-26-2023 Anion gap [Moles/Vol] 0 mmol/L Low 3 - 13 mmol/L [facility] Calcium [Mass/Vol] 7.7 mg/dL Low 8.4 - 10. 4 mg/dL [facility] Chloride [Moles/Vol] 108 mmol/L High 98 - 10 7 mmol/L [facility] CO2 [Moles/Vol] 25 mmol/L 22 - 30 mmol/L [facility] Creatinine [Mass/Vol] 0.74 mg/dL 0.52 - 1.04 mg/dL [facility] GFR/1.73 sq M.predicted (S/P/Bld) [Vol rate/Area] 84.5 mL/min - PINF [facility] Glucose [Mass/Vol] 211 mg/dL High 70 - 100 mg/dL [facility] Interpretation and review of laboratory results Abnormal [facility] Potassium [Moles/Vol] 4.3 mmol/L 3.5 - 5.1 mmol/L [facility] Sodium [Moles/Vol] 133 mmol/L Low 135 - 145 mmol/L [facility] Urea nitrogen [Mass/Vol] 22 mg/dL High 7 - 17 mg/dL [facility] CBC W Auto Differential pane l (Bld)Ordered By: Patricia Aragon on 11-26-2023 Basophils (Bld) [#/Vol] 0.0 10*3/uL 0.0 - 0.2 10*3/uL [facility] Basophils/100 WBC (Bld) 0.8 % 0.0 - 2.0 % [facility] Eosinophils (Bld) [#/Vol] 0.2 10*3/uL 0.0 - 0.5 10*3/uL [facility] Eosinophils/100 WBC (Bld) 5.9 % 0.0 - 6.0 % [facility] Erythrocyte distribution width (RBC) [Ratio] 16.4 % High 11.5 - 15.0 % [facility] Hematocrit (Bld) [Volume fraction] 31.6 % Low 35.0 - 47.0 % [facility] Hemoglobin (Bld) [Mass/Vol] 10.2 g/dL Low 11.7 - 16.0 g/dL [facility] Immature granulocytes (Bld) [#/Vol] 0.0 10*3/uL NINF - 0.1 10*3/uL [facility] Immature granulocytes/100 WBC (Bld) 0.3 % 0.0 - 2.0 % [facility] Interpretation and review of laboratory results Abnormal [facility] Lymphocytes (Bld) [#/Vol] 1.1 10*3/uL 1.0 - 4.3 10*3/uL [facility] Lymphocytes/100 WBC (Bld) 27.1 % 15.0 - 45.0 % [facility] MCH (RBC) [Entitic mass] 32.3 pg 26.0 - 34.0 pg [facility] MCHC (RBC) [Mass/Vol] 32.3 % 30.5 - 36.0 % [facility] MCV (RBC) [Entitic vol] 100.0 fL High 77.0 - 99.0 fL [facility] Monocytes (Bld) [#/Vol] 0.4 10*3/uL 0.0 - 0.9 10*3/uL [facility] Monocytes/100 WBC (Bld) 9.7 % 5.0 - 13.0 % [facility] Neutrophils (Bld) [#/Vol] 2.2 10*3/uL 1.8 - 7.5 10*3/uL [facility] Neutrophils/100 WBC (Bld) 56.2 % 38.0 - 82.0 % [facility] Nucleated RBC/100 WBC (Bld) [Ratio] 0.0 % [facility] Platelet mean volume (Bld) [Entitic vol] 12.5 fL 9.0 - 12.7 fL [facility] Platelets (Bld) [#/Vol] 169 10*3/uL 140 - 440 10*3/uL [facility] RBC (Bld) [#/Vol] 3.16 10*6/uL Low 3.80 - 5.2 0 10*6/uL [facility] WBC (Bld) [#/Vol] 3.9 10*3/uL 3.6 - 10.7 10*3/uL [facility] Laboratory - Chemistry and C hemistry - challengeon 11-26-2023 Glucose [Mass/Vol] 222 mg/dL High 70 - 100 mg/dL [facility] Glucose [Mass/Vol] 218 mg/dL High 70 - 100 mg/dL [facility] Glucose [Mass/Vol] 262 mg/dL High 70 - 100 mg/dL [facility] Laboratory - Drug toxicology on 11-26-2023 Vancomycin trough [Mass/Vol] 17.7 ug/mL 15.0 - 20.0 ug/mL [facility] Laboratory - Microbiology an d Antimicrobial susceptibilityon 11-26-2023 Bacteria identified Cx Nom (U) >100,000 CFU/mL Escherichia coli Abnormal [facility] Bacteria identified Cx Nom (U) >100,000 CFU/mL Providencia stuartii Abnormal [facility] No Panel Informationon 11-25 Interpretation and review of laboratory results Abnormal [facility] Interpretation and review of laboratory results Abnormal [facility] Interpretation and review of laboratory results Abnormal [facility] Vancomycin trough [Mass/Vol] on 11-26-2023 Interpretation and review of laboratory results Normal [facility] Bacteria identified Cx Nom ( Bld)Ordered By: Kavin Johnson on 11-25-2023 Interpretation and review of laboratory results Abnormal [facility] CBC panel Auto (Bld)on 11-24 Erythrocyte distribution width (RBC) [Ratio] 16.3 % High 11.5 - 15.0 % [facility] Hematocrit (Bld) [Volume fraction] 30.5 % Low 35.0 - 47.0 % [facility] Hemoglobin (Bld) [Mass/Vol] 9.5 g/dL Low 11.7 - 16.0 g/dL [facility] Interpretation and review of laboratory results Abnormal [facility] IPF 5 [facility] MCH (RBC) [Entitic mass] 31.0 pg 26.0 - 34.0 pg [facility] MCHC (RBC) [Mass/Vol] 31.1 % 30.5 - 36.0 % [facility] MCV (RBC) [Entitic vol] 99.7 fL High 77.0 - 99.0 fL [facility] Platelet mean volume (Bld) [Entitic vol] 11.3 fL 9.0 - 12.7 fL [facility] Platelets (Bld) [#/Vol] 119 10*3/uL Low 140 - 440 10*3/uL [facility] RBC (Bld) [#/Vol] 3.06 10*6/uL Low 3.80 - 5.2 0 10*6/uL [facility] WBC (Bld) [#/Vol] 3.4 10*3/uL Low 3.6 - 10.7 10*3/uL [facility] Comprehensive metabolic 1998 panelon 11-25-2023 Albumin [Mass/Vol] 2.4 g/dL Low 3.5 - 5.0 g/dL [facility] ALP [Catalytic activity/Vol] 62 U/L 38 - 126 U/L [facility] ALT [Catalytic activity/Vol] 13 U/L 0 - 34 U/L [facility] Anion gap [Moles/Vol] 1 mmol/L Low 3 - 13 mmol/L [facility] AST [Catalytic activity/Vol] 21 U/L 15 - 46 U/L [facility] Bilirubin [Mass/Vol] 0.4 mg/dL 0.2 - 1 .3 mg/dL [facility] Calcium [Mass/Vol] 7.6 mg/dL Low 8.4 - 10. 4 mg/dL [facility] Chloride [Moles/Vol] 107 mmol/L 98 - 10 7 mmol/L [facility] CO2 [Moles/Vol] 27 mmol/L 22 - 30 mmol/L [facility] Creatinine [Mass/Vol] 0.80 mg/dL 0.52 - 1.04 mg/dL [facility] GFR/1.73 sq M.predicted (S/P/Bld) [Vol rate/Area] 76.9 mL/min - PINF [facility] Glucose [Mass/Vol] 230 mg/dL High 70 - 100 mg/dL [facility] Interpretation and review of laboratory results Abnormal [facility] Potassium [Moles/Vol] 3.9 mmol/L 3.5 - 5.1 mmol/L [facility] Protein [Mass/Vol] 5.2 g/dL Low 6.3 - 8.2 g/dL [facility] Sodium [Moles/Vol] 135 mmol/L 135 - 145 mmol/L [facility] Urea nitrogen [Mass/Vol] 22 mg/dL High 7 - 17 mg/dL [facility] Laboratory - Chemistry and C hemistry - challengeon 11-25-2023 Glucose [Mass/Vol] 328 mg/dL High 70 - 100 mg/dL [facility] Glucose [Mass/Vol] 273 mg/dL High 70 - 100 mg/dL [facility] Glucose [Mass/Vol] 280 mg/dL High 70 - 100 mg/dL [facility] Glucose [Mass/Vol] 219 mg/dL High 70 - 100 mg/dL [facility] Laboratory - Microbiology an d Antimicrobial susceptibilityOrdered By: Kavin Johnson on 11-25-2023 Bacteria identified Cx Nom (Bld) Staphylococcus hominis Critically abnormal [facility] Bacteria identified Cx Nom (Bld) Staphylococcus epidermidis Critically abnormal [facility] No Panel Informationon 11-24 Interpretation and review of laboratory results Abnormal [facility] Interpretation and review of laboratory results Abnormal [facility] Interpretation and review of laboratory results Abnormal [facility] IMAGING Interpretation and review of laboratory results Abnormal [facility] No Panel InformationOrdered By: Hari Villavicencio on 11-25-2023 Targets Detected Not detected [facility] CBC panel Auto (Bld)on 11-23 Erythrocyte distribution width (RBC) [Ratio] 15.9 % High 11.5 - 15.0 % [facility] Hematocrit (Bld) [Volume fraction] 33.0 % Low 35.0 - 47.0 % [facility] Hemoglobin (Bld) [Mass/Vol] 10.1 g/dL Low 11.7 - 16.0 g/dL [facility] Interpretation and review of laboratory results Abnormal [facility] IPF 5 [facility] MCH (RBC) [Entitic mass] 30.4 pg 26.0 - 34.0 pg [facility] MCHC (RBC) [Mass/Vol] 30.6 % 30.5 - 36.0 % [facility] MCV (RBC) [Entitic vol] 99.4 fL High 77.0 - 99.0 fL [facility] Platelet mean volume (Bld) [Entitic vol] 11.3 fL 9.0 - 12.7 fL [facility] Platelets (Bld) [#/Vol] 126 10*3/uL Low 140 - 440 10*3/uL [facility] RBC (Bld) [#/Vol] 3.32 10*6/uL Low 3.80 - 5.2 0 10*6/uL [facility] WBC (Bld) [#/Vol] 5.0 10*3/uL 3.6 - 10.7 10*3/uL [facility] Comprehensive metabolic 1998 panelon 11-24-2023 Albumin [Mass/Vol] 2.6 g/dL Low 3.5 - 5.0 g/dL [facility] ALP [Catalytic activity/Vol] 68 U/L 38 - 126 U/L [facility] ALT [Catalytic activity/Vol] 15 U/L 0 - 34 U/L [facility] Anion gap [Moles/Vol] 3 mmol/L 3 - 13 mmol/L [facility] AST [Catalytic activity/Vol] 22 U/L 15 - 46 U/L [facility] Bilirubin [Mass/Vol] 0.5 mg/dL 0.2 - 1 .3 mg/dL [facility] Calcium [Mass/Vol] 7.9 mg/dL Low 8.4 - 10. 4 mg/dL [facility] Chloride [Moles/Vol] 107 mmol/L 98 - 10 7 mmol/L [facility] CO2 [Moles/Vol] 27 mmol/L 22 - 30 mmol/L [facility] Creatinine [Mass/Vol] 0.81 mg/dL 0.52 - 1.04 mg/dL [facility] GFR/1.73 sq M.predicted (S/P/Bld) [Vol rate/Area] 75.8 mL/min - PINF [facility] Glucose [Mass/Vol] 319 mg/dL High 70 - 100 mg/dL [facility] Potassium [Moles/Vol] 4.1 mmol/L 3.5 - 5.1 mmol/L [facility] Protein [Mass/Vol] 5.4 g/dL Low 6.3 - 8.2 g/dL [facility] Sodium [Moles/Vol] 137 mmol/L 135 - 145 mmol/L [facility] Urea nitrogen [Mass/Vol] 25 mg/dL High 7 - 17 mg/dL [facility] Laboratory - Chemistry and C hemistry - challengeon 11-24-2023 Glucose [Mass/Vol] 331 mg/dL High 70 - 100 mg/dL [facility] Glucose [Mass/Vol] 331 mg/dL High 70 - 100 mg/dL [facility] Glucose [Mass/Vol] 371 mg/dL High 70 - 100 mg/dL [facility] Glucose [Mass/Vol] 302 mg/dL High 70 - 100 mg/dL [facility] Lactate [Moles/Vol] 1.9 mmol/L 0.7 - 2. 0 mmol/L [facility] Glucose [Mass/Vol] 251 mg/dL High 70 - 100 mg/dL [facility] Lactate [Moles/Vol] 2.3 mmol/L High 0.7 - 2. 0 mmol/L [facility] Lactate [Moles/Vol] 2.6 mmol/L High 0.7 - 2. 0 mmol/L [facility] Laboratory - Drug toxicology on 11-24-2023 Vancomycin trough [Mass/Vol] 5.7 ug/mL Low 15.0 - 20.0 ug/mL [facility] No Panel Informationon 11-23 Interpretation and review of laboratory results Abnormal [facility] Interpretation and review of laboratory results Abnormal [facility] Interpretation and review of laboratory results Abnormal [facility] Interpretation and review of laboratory results Abnormal [facility] Interpretation and review of laboratory results Normal [facility] Interpretation and review of laboratory results Abnormal [facility] Interpretation and review of laboratory results Abnormal [facility] Interpretation and review of laboratory results Abnormal [facility] Vancomycin trough [Mass/Vol] on 11-24-2023 Interpretation and review of laboratory results Abnormal [facility] CBC panel Auto (Bld)Ordered By: Samina Sorensen on 11-23-2023 Erythrocyte distribution width (RBC) [Ratio] 15.7 % High 11.5 - 15.0 % [facility] Hematocrit (Bld) [Volume fraction] 33.2 % Low 35.0 - 47.0 % [facility] Hemoglobin (Bld) [Mass/Vol] 10.3 g/dL Low 11.7 - 16.0 g/dL [facility] Interpretation and review of laboratory results Abnormal [facility] MCH (RBC) [Entitic mass] 30.7 pg 26.0 - 34.0 pg [facility] MCHC (RBC) [Mass/Vol] 31.0 % 30.5 - 36.0 % [facility] MCV (RBC) [Entitic vol] 98.8 fL 77.0 - 99.0 fL [facility] Platelet mean volume (Bld) [Entitic vol] 11.4 fL 9.0 - 12.7 fL [facility] Platelets (Bld) [#/Vol] 146 10*3/uL 140 - 440 10*3/uL [facility] RBC (Bld) [#/Vol] 3.36 10*6/uL Low 3.80 - 5.2 0 10*6/uL [facility] WBC (Bld) [#/Vol] 7.4 10*3/uL 3.6 - 10.7 10*3/uL [facility] CT Abdomen WO contraston [facility] EMERGENCY DEPARTMENT RADIOLOGY [facility] RADIOLOGY SYSTEM [facility] Radiology Study observation (narrative) [facility] CT Abdomen WO contrastOrdere d By: Phillip Ng on 11-23-2023 [facility] [employer] Work Phone: Comprehensive metabolic 1998 panelon 11-23-2023 Albumin [Mass/Vol] 2.8 g/dL Low 3.5 - 5.0 g/dL [facility] ALP [Catalytic activity/Vol] 78 U/L 38 - 126 U/L [facility] ALT [Catalytic activity/Vol] 15 U/L 0 - 34 U/L [facility] Anion gap [Moles/Vol] 4 mmol/L 3 - 13 mmol/L [facility] AST [Catalytic activity/Vol] 21 U/L 15 - 46 U/L [facility] Bilirubin [Mass/Vol] 0.4 mg/dL 0.2 - 1 .3 mg/dL [facility] Calcium [Mass/Vol] 8.1 mg/dL Low 8.4 - 10. 4 mg/dL [facility] Chloride [Moles/Vol] 107 mmol/L 98 - 10 7 mmol/L [facility] CO2 [Moles/Vol] 26 mmol/L 22 - 30 mmol/L [facility] Creatinine [Mass/Vol] 0.79 mg/dL 0.52 - 1.04 mg/dL [facility] GFR/1.73 sq M.predicted (S/P/Bld) [Vol rate/Area] 78.1 mL/min - PINF [facility] Glucose [Mass/Vol] 327 mg/dL High 70 - 100 mg/dL [facility] Interpretation and review of laboratory results Abnormal [facility] Potassium [Moles/Vol] 3.9 mmol/L 3.5 - 5.1 mmol/L [facility] Protein [Mass/Vol] 5.8 g/dL Low 6.3 - 8.2 g/dL [facility] Sodium [Moles/Vol] 137 mmol/L 135 - 145 mmol/L [facility] Urea nitrogen [Mass/Vol] 24 mg/dL High 7 - 17 mg/dL [facility] Laboratory - Chemistry and C hemistry - challengeon 11-23-2023 Glucose [Mass/Vol] 330 mg/dL High 70 - 100 mg/dL [facility] Glucose [Mass/Vol] 295 mg/dL High 70 - 100 mg/dL [facility] Glucose [Mass/Vol] 313 mg/dL High 70 - 100 mg/dL [facility] Lactate [Moles/Vol] 2.8 mmol/L High 0.7 - 2. 0 mmol/L [facility] Glucose [Mass/Vol] 296 mg/dL High 70 - 100 mg/dL [facility] Average glucose Estimated from glycated hemoglobin (Bld) [Mass/Vol] 223 mg/dL [facility] Troponin I.cardiac [Mass/Vol] 0.012 ng/mL NINF - 0.034 ng/mL [facility] Magnesium [Mass/Vol] 1.9 mg/dL 1.6 - 2 .3 mg/dL [facility] Lactate [Moles/Vol] 2.9 mmol/L High 0.7 - 2. 0 mmol/L [facility] Lactate [Moles/Vol] 2.7 mmol/L High 0.7 - 2. 0 mmol/L [facility] Troponin I.cardiac [Mass/Vol] 0.012 ng/mL NINF - 0.034 ng/mL [facility] Laboratory - Chemistry and C hemistry - challengeOrdered By: Talia Hill on 11-23-2023 Lactate [Moles/Vol] 4.4 mmol/L Critically high 0.7 - 2.0 mmol/L [facility] Laboratory - Chemistry and C hemistry - challengeOrdered By: Ifeanyi Jordan on 11-23-2023 Base excess Calc (BldV) [Moles/Vol] 5.1 mmol/L High -3.0 - 3.0 mmol/L [facility] CO2 (BldV) [Partial pressure] 63.3 mm[Hg] High [facility] CO2 [Moles/Vol] 34.8 mmol/L High 24.0 - 28.0 mmol/L [facility] HCO3 (Bld) [Moles/Vol] 32.9 mmol/L High 23.0 - 27.0 mmol/L [facility] Oxygen (BldV) [Partial pressure] 34.8 mm[Hg] mm Hg [facility] pH (BldV) 7.333 [pH] 7.330 - 7.430 [facility] Laboratory - Hematology and Cell countson 11-23-2023 HbA1c (Bld) [Mass fraction] 9.4 % High NINF - 5.7 % [facility] Laboratory - Hematology and Cell countsOrdered By: Ifeanyi Jordan on 11-23-2023 Hemoglobin (Bld) [Mass/Vol] 13.3 g/dL Screen only [facility] Magnesium [Mass/Vol]on 11-22 Interpretation and review of laboratory results Normal [facility] No Panel Informationon 11-22 Interpretation and review of laboratory results Abnormal [facility] Interpretation and review of laboratory results Abnormal [facility] Interpretation and review of laboratory results Abnormal [facility] CV CPACS Interpretation and review of laboratory results Abnormal [facility] Interpretation and review of laboratory results Abnormal [facility] Interpretation and review of laboratory results Abnormal [facility] Interpretation and review of laboratory results Abnormal [facility] Interpretation and review of laboratory results Abnormal [facility] P [place] 0 degrees [facility] PA Interval 90 ms [facility] QRS [place] 14 degrees [facility] QRSD Interval 144 ms [facility] Center QT Interval 478 ms [facility] QTC Interval 512 ms [facility] T Wave [place] 72 degrees [facility] CV EPIPHANY [facility] No Panel InformationOrdered By: Talia Hill on 11-23-2023 Interpretation and review of laboratory results Abnormal [facility] No Panel InformationOrdered By: Katie Zacarias on 11-23-2023 Interpretation and review of laboratory results Abnormal [facility] mecA/C (MRSE/MRSL) Detected Abnormal Not Detected [facility] Staphylococcus epidermidis Detected Abnormal Not Detected [facility] No Panel InformationOrdered By: Ifeanyi Jordan on 11-23-2023 Interpretation and review of laboratory results Abnormal [facility] Source Of Oxygen Room Air [facility] Troponin I.cardiac [Mass/Vol ]on 11-23-2023 Interpretation and review of laboratory results Normal [facility] Interpretation and review of laboratory results Normal [facility] Vital signson 11-23-2023 Heart rate 69 /min bpm [facility] Vital signsOrdered By: Sharath Jordan on 11-23-2023 Oxygen saturation in Venous blood 61.7 % [facility] CBC W Auto Differential pane l (Bld)on 11-22-2023 Basophils (Bld) [#/Vol] 0.0 10*3/uL 0.0 - 0.2 10*3/uL [facility] Basophils/100 WBC (Bld) 0.3 % 0.0 - 2.0 % [facility] Eosinophils (Bld) [#/Vol] 0.2 10*3/uL 0.0 - 0.5 10*3/uL [facility] Eosinophils/100 WBC (Bld) 2.3 % 0.0 - 6.0 % [facility] Erythrocyte distribution width (RBC) [Ratio] 15.8 % High 11.5 - 15.0 % [facility] Hematocrit (Bld) [Volume fraction] 37.0 % 35.0 - 47.0 % [facility] Hemoglobin (Bld) [Mass/Vol] 11.7 g/dL 11.7 - 16.0 g/dL [facility] Immature granulocytes (Bld) [#/Vol] 0.0 10*3/uL NINF - 0.1 10*3/uL [facility] Immature granulocytes/100 WBC (Bld) 0.4 % 0.0 - 2.0 % [facility] Interpretation and review of laboratory results Abnormal [facility] Lymphocytes (Bld) [#/Vol] 1.3 10*3/uL 1.0 - 4.3 10*3/uL [facility] Lymphocytes/100 WBC (Bld) 17.3 % 15.0 - 45.0 % [facility] MCH (RBC) [Entitic mass] 31.2 pg 26.0 - 34.0 pg [facility] MCHC (RBC) [Mass/Vol] 31.6 % 30.5 - 36.0 % [facility] MCV (RBC) [Entitic vol] 98.7 fL 77.0 - 99.0 fL [facility] Monocytes (Bld) [#/Vol] 0.5 10*3/uL 0.0 - 0.9 10*3/uL [facility] Monocytes/100 WBC (Bld) 6.9 % 5.0 - 13.0 % [facility] Neutrophils (Bld) [#/Vol] 5.4 10*3/uL 1.8 - 7.5 10*3/uL [facility] Neutrophils/100 WBC (Bld) 72.8 % 38.0 - 82.0 % [facility] Nucleated RBC/100 WBC (Bld) [Ratio] 0.0 % [facility] Platelet mean volume (Bld) [Entitic vol] 11.9 fL 9.0 - 12.7 fL [facility] Platelets (Bld) [#/Vol] 138 10*3/uL Low 140 - 440 10*3/uL [facility] RBC (Bld) [#/Vol] 3.75 10*6/uL Low 3.80 - 5.2 0 10*6/uL [facility] WBC (Bld) [#/Vol] 7.4 10*3/uL 3.6 - 10.7 10*3/uL [facility] CT Head WO contraston 2023 [facility] RADIOLOGY [facility] RADIOLOGY [facility] Radiology Study observation (narrative) [facility] CT Head WO contrastOrdered B y: Sy Akins on 11-22-2023 [facility] Work Phone: Comprehensive metabolic 1998 panelon 11-22-2023 Albumin [Mass/Vol] 3.4 g/dL Low 3.5 - 5.0 g/dL [facility] ALP [Catalytic activity/Vol] 82 U/L 38 - 126 U/L [facility] ALT [Catalytic activity/Vol] 16 U/L 0 - 34 U/L [facility] Anion gap [Moles/Vol] 4 mmol/L 3 - 13 mmol/L [facility] AST [Catalytic activity/Vol] 36 U/L 15 - 46 U/L [facility] Bilirubin [Mass/Vol] 0.8 mg/dL 0.2 - 1 .3 mg/dL [facility] Calcium [Mass/Vol] 8.7 mg/dL 8.4 - 10. 4 mg/dL [facility] Chloride [Moles/Vol] 103 mmol/L 98 - 10 7 mmol/L [facility] [employer] CO2 [Moles/Vol] 29 mmol/L 22 - 30 mmol/L [facility] Creatinine [Mass/Vol] 0.91 mg/dL 0.52 - 1.04 mg/dL [facility] GFR/1.73 sq M.predicted (S/P/Bld) [Vol rate/Area] 65.9 mL/min - PINF [facility] Glucose [Mass/Vol] 350 mg/dL High 70 - 100 mg/dL [facility] Interpretation and review of laboratory results Abnormal [facility] Potassium [Moles/Vol] 4.5 mmol/L 3.5 - 5.1 mmol/L [facility] Protein [Mass/Vol] 6.9 g/dL 6.3 - 8.2 g/dL [facility] Sodium [Moles/Vol] 137 mmol/L 135 - 145 mmol/L [facility] Urea nitrogen [Mass/Vol] 28 mg/dL High 7 - 17 mg/dL [facility] Free T4 [Mass/Vol]on 024 Free T4 Dialysis [Mass/Vol] 2.06 ng/dL 0.78 - 2.19 ng/dL [facility] Interpretation and review of laboratory results Normal [facility] Laboratory - Chemistry and C hemistry - challengeon 11-22-2023 TSH Qn 1.649 m[IU]/L [facility] Troponin I.cardiac [Mass/Vol] ng/mL NINF - 0.034 ng/mL [facility] Beta hydroxybutyrate [Mass/Vol] 2.08 mg/dL 0.20 - 2.81 mg/dL [facility] Lactate [Moles/Vol] 2.6 mmol/L High 0.7 - 2. 0 mmol/L [facility] Glucose [Mass/Vol] 390 mg/dL High 70 - 100 mg/dL [facility] Laboratory - Microbiology an d Antimicrobial susceptibilityon 11-22-2023 FLUAV RNA EZIO+probe Ql (Resp) Not detected Not Detected [facility] FLUBV RNA EZIO+probe Ql (Resp) Not detected Not Detected [facility] RSV RNA EZIO+probe Ql (Resp) Not detected Not Detected [facility] SARS-CoV-2 (COVID-19) RNA EZIO+probe Ql (Resp) Not detected Not Detected [facility] No Panel Informationon 11-21 Interpretation and review of laboratory results Normal [facility] Interpretation and review of laboratory results Abnormal [facility] Interpretation and review of laboratory results Abnormal [facility] SARS-CoV-2, Flu A/B, and RSV Comboon 11-22-2023 Interpretation and review of laboratory results Normal [facility] TSH Qnon 11-22-2023 Interpretation and review of laboratory results Normal [facility] Troponin I.cardiac [Mass/Vol ]on 11-22-2023 Interpretation and review of laboratory results Normal [facility] Urinalysis complete panel (U )Ordered By: Adele Arevalo on 11-22-2023 Bacteria LM.HPF (Urine sed) [#/Area] Moderate Abnormal Negative /HPF [facility] Bilirubin Ql (U) Negative Negative mg/dL [facility] Clarity (U) Clear Clear [facility] Color (U) Light Yellow Lt. Yellow [facility] Epithelial cells.squamous LM.HPF (Urine sed) [#/Area] 0-2 [facility] Glucose Ql (U) >1,000 Abnormal Normal (<70) mg/dL [facility] Hemoglobin Ql (U) 0.2 mg/dL Abnormal Negative [facility] Hyaline casts Auto (Urine sed) [#/Area] Negative Negative /LPF [facility] Interpretation and review of laboratory results Abnormal [facility] Ketones (U) [Mass/Vol] Negative Negat iris mg/dL [facility] Leukocyte esterase Test strip Ql (U) 250 Abnormal Negative Jimenez/uL [facility] Mucus LM.HPF (Urine sed) [#/Area] Few Negative /LPF [facility] Nitrite Ql (U) Positive Abnormal Negative [facility] pH (U) 7.0 [pH] 5.0 - 8.0 pH [facility] Protein (U) [Mass/Vol] 70 mg/dL Abnormal Negative [facility] RBC LM.HPF (Urine sed) [#/Area] 26-50 Abnormal [facility] Specific gravity (U) [Rel density] 1.019 1.005 - 1.030 [facility] Urobilinogen (U) [Mass/Vol] Normal Normal (0-1) mg/dL [facility] WBC LM.HPF (Urine sed) [#/Area] 26-50 Abnormal [facility] XR Chest Single viewon 11-21 [facility] RADIOLOGY SYSTEM [facility] EMERG[facility] RADIOLOGY SYSTEM [facility] Radiology Study observation (narrative) [facility] Laboratory - Chemistry and C hemistry - challengeon 09-27-2023 Glucose [Mass/Vol] 243 mg/dL High 70 - 100 mg/dL [facility] Glucose [Mass/Vol] 245 mg/dL High 70 - 100 mg/dL [facility] Glucose [Mass/Vol] 212 mg/dL High 70 - 100 mg/dL [facility] No Panel Informationon 09-26 Interpretation and review of laboratory results Abnormal [facility] Performed by: [facility], [address] [place] [id number] CLIA ID: [id number] [facility] There is no interpre tation needed for this exam. IMAGING Interpretation and review of laboratory results Abnormal [facility] Performed by: [facility], [address] [place] [id number] CLIA ID: [id number] [facility] Interpretation and review of laboratory results Abnormal [facility] Performed by: [facility], [address] [place] [id number] CLIA ID: [id number] [facility] Radiology Study observation (narrative) [facility] Radiology Study observation (narrative) [facility] Radiology Study observation (narrative) [facility] Basic metabolic 1998 panelon 08-09-2023 Anion gap [Moles/Vol] 7 mmol/L 3 - 13 mmol/L [facility] Calcium [Mass/Vol] 8.5 mg/dL 8.4 - 10. 4 mg/dL [facility] Chloride [Moles/Vol] 99 mmol/L 98 - 10 7 mmol/L [facility] CO2 [Moles/Vol] 33 mmol/L High 22 - 30 mmol/L [facility] Creatinine [Mass/Vol] 1.17 mg/dL High 0.52 - 1.04 mg/dL [facility] GFR/1.73 sq M.predicted MDRD (S/P/Bld) [Vol rate/Area] 49.1 mL/min/{1.73_m2} Low - PINF [facility] Glucose [Mass/Vol] 166 mg/dL High 70 - 100 mg/dL [facility] Interpretation and review of laboratory results Abnormal [facility] Potassium [Moles/Vol] 3.9 mmol/L 3.5 - 5.1 mmol/L [facility] Sodium [Moles/Vol] 140 mmol/L 135 - 145 mmol/L [facility] Urea nitrogen [Mass/Vol] 69 mg/dL High 7 - 17 mg/dL [facility] CBC W Auto Differential pane l (Bld)on 08-09-2023 Erythrocyte distribution width (RBC) [Ratio] 15.0 % 11.5 - 15.0 % [facility] Hematocrit (Bld) [Volume fraction] 25.6 % Low 35.0 - 47.0 % [facility] Hemoglobin (Bld) [Mass/Vol] 7.9 g/dL Low 11.7 - 16.0 g/dL [facility] MCH (RBC) [Entitic mass] 33.5 pg 26.0 - 34.0 pg [facility] MCHC (RBC) [Mass/Vol] 30.9 % 30.5 - 36.0 % [facility] MCV (RBC) [Entitic vol] 108.5 fL High 77.0 - 99.0 fL [facility] Platelet mean volume (Bld) [Entitic vol] 11.7 fL 9.0 - 12.7 fL [facility] Platelets (Bld) [#/Vol] 201 10*3/uL 140 - 440 10*3/uL [facility] RBC (Bld) [#/Vol] 2.36 10*6/uL Low 3.80 - 5.2 0 10*6/uL [facility] WBC (Bld) [#/Vol] 6.3 10*3/uL 3.6 - 10.7 10*3/uL [facility] Laboratory - Chemistry and C hemistry - challengeon 08-09-2023 Glucose [Mass/Vol] 173 mg/dL High 70 - 100 mg/dL [facility] Glucose [Mass/Vol] 125 mg/dL High 70 - 100 mg/dL [facility] Laboratory - Hematology and Cell countson 08-09-2023 Anisocytosis Ql (Bld) Rare Abnormal (none) [facility] Basophils (Bld) [#/Vol] 0.1 10*3/uL 0.0 - 0.2 10*3/uL [facility] Basophils/100 WBC (Bld) 1 % 0 - 2 % [facility] Eosinophils (Bld) [#/Vol] 0.2 10*3/uL 0.0 - 0.5 10*3/uL [facility] Eosinophils/100 WBC (Bld) 3 % 0 - 6 % [facility] Hypochromia Ql (Bld) Rare Abnormal (none) [facility] Lymphocytes (Bld) [#/Vol] 1.7 10*3/uL 1.0 - 4.3 10*3/uL [facility] Lymphocytes/100 WBC (Bld) 27 % 15 - 45 % [facility] Macrocytes Ql (Bld) Rare Abnormal (none) [facility] Monocytes (Bld) [#/Vol] 0.3 10*3/uL 0.0 - 0.9 10*3/uL [facility] Monocytes/100 WBC (Bld) 4 % Low 5 - 13 % [facility] Neutrophils (Bld) [#/Vol] 4.1 10*3/uL 1.8 - 7.5 10*3/uL [facility] Poikilocytosis LM Ql (Bld) Rare Abnormal (none) [facility] RBC morphology finding Nom (Bld) abnormal [facility] Segmented neutrophils/100 WBC (Bld) 65 % 38 - 82 % [facility] Stomatocytes LM Ql (Bld) Slight Abnormal (none) [facility] No Panel Informationon 08-08 Interpretation and review of laboratory results Abnormal [facility] Interpretation and review of laboratory results Abnormal [facility] Basophils Manual 1 [facility] Eosinophils Manual 3 High 0 - 1 [facility] Interpretation and review of laboratory results Abnormal [facility] Lymphocytes Manual 27 [facility] Monocytes Manual 4 [facility] Neutrophils Manual 65 [facility] Basic metabolic 1998 panelon 08-08-2023 Anion gap [Moles/Vol] 6 mmol/L 3 - 13 mmol/L [facility] Calcium [Mass/Vol] 9.2 mg/dL 8.4 - 10. 4 mg/dL [facility] Chloride [Moles/Vol] 103 mmol/L 98 - 10 7 mmol/L [facility] CO2 [Moles/Vol] 35 mmol/L High 22 - 30 mmol/L [facility] Creatinine [Mass/Vol] 1.16 mg/dL High 0.52 - 1.04 mg/dL [facility] GFR/1.73 sq M.predicted MDRD (S/P/Bld) [Vol rate/Area] 49.6 mL/min/{1.73_m2} Low - PINF [facility] Glucose [Mass/Vol] 161 mg/dL High 70 - 100 mg/dL [facility] Interpretation and review of laboratory results Abnormal [facility] Potassium [Moles/Vol] 3.8 mmol/L 3.5 - 5.1 mmol/L [facility] Sodium [Moles/Vol] 144 mmol/L 135 - 145 mmol/L [facility] Urea nitrogen [Mass/Vol] 68 mg/dL High 7 - 17 mg/dL [facility] CBC W Auto Differential pane l (Bld)on 08-08-2023 Basophils (Bld) [#/Vol] 0.0 10*3/uL 0.0 - 0.2 10*3/uL [facility] Basophils/100 WBC (Bld) 0.4 % 0.0 - 2.0 % [facility] Eosinophils (Bld) [#/Vol] 0.4 10*3/uL 0.0 - 0.5 10*3/uL [facility] Eosinophils/100 WBC (Bld) 6.0 % 0.0 - 6.0 % [facility] Erythrocyte distribution width (RBC) [Ratio] 14.9 % 11.5 - 15.0 % [facility] Hematocrit (Bld) [Volume fraction] 29.2 % Low 35.0 - 47.0 % [facility] Hemoglobin (Bld) [Mass/Vol] 8.9 g/dL Low 11.7 - 16.0 g/dL [facility] Immature granulocytes (Bld) [#/Vol] 0.3 10*3/uL High NINF - 0.1 10*3/uL [facility] Immature granulocytes/100 WBC (Bld) 3.9 % High 0.0 - 2.0 % [facility] Interpretation and review of laboratory results Abnormal [facility] Lymphocytes (Bld) [#/Vol] 2.1 10*3/uL 1.0 - 4.3 10*3/uL [facility] Lymphocytes/100 WBC (Bld) 31.2 % 15.0 - 45.0 % [facility] MCH (RBC) [Entitic mass] 33.2 pg 26.0 - 34.0 pg [facility] MCHC (RBC) [Mass/Vol] 30.5 % 30.5 - 36.0 % [facility] MCV (RBC) [Entitic vol] 109.0 fL High 77.0 - 99.0 fL [facility] Monocytes (Bld) [#/Vol] 0.6 10*3/uL 0.0 - 0.9 10*3/uL [facility] Monocytes/100 WBC (Bld) 8.7 % 5.0 - 13.0 % [facility] Neutrophils (Bld) [#/Vol] 3.3 10*3/uL 1.8 - 7.5 10*3/uL [facility] Neutrophils/100 WBC (Bld) 49.8 % 38.0 - 82.0 % [facility] Nucleated RBC/100 WBC (Bld) [Ratio] 0.0 % [facility] Platelet mean volume (Bld) [Entitic vol] 12.2 fL 9.0 - 12.7 fL [facility] Platelets (Bld) [#/Vol] 240 10*3/uL 140 - 440 10*3/uL [facility] RBC (Bld) [#/Vol] 2.68 10*6/uL Low 3.80 - 5.2 0 10*6/uL [facility] WBC (Bld) [#/Vol] 6.7 10*3/uL 3.6 - 10.7 10*3/uL [facility] Laboratory - Chemistry and C hemistry - challengeon 08-08-2023 Glucose [Mass/Vol] 173 mg/dL High 70 - 100 mg/dL [facility] Glucose [Mass/Vol] 123 mg/dL High 70 - 100 mg/dL [facility] Glucose [Mass/Vol] 129 mg/dL High 70 - 100 mg/dL [facility] Cobalamin (Vitamin B12) [Mass/Vol] 436 pg/mL 239 - 931 pg/mL [facility] Folate [Mass/Vol] 6.2 ng/mL 2.9 - PINF ng/mL [facility] Glucose [Mass/Vol] 147 mg/dL High 70 - 100 mg/dL [facility] No Panel Informationon 08-07 Interpretation and review of laboratory results Abnormal [facility] Interpretation and review of laboratory results Abnormal [facility] Interpretation and review of laboratory results Abnormal [facility] Interpretation and review of laboratory results Normal [facility] Interpretation and review of laboratory results Abnormal [facility] Bacteria identified Cx Nom ( Bld)on 08-07-2023 Interpretation and review of laboratory results Normal [facility] Basic metabolic 1998 panelon 08-07-2023 Anion gap [Moles/Vol] 10 mmol/L 3 - 13 mmol/L [facility] Calcium [Mass/Vol] 9.2 mg/dL 8.4 - 10. 4 mg/dL [facility] Chloride [Moles/Vol] 101 mmol/L 98 - 10 7 mmol/L [facility] CO2 [Moles/Vol] 33 mmol/L High 22 - 30 mmol/L [facility] Creatinine [Mass/Vol] 1.11 mg/dL High 0.52 - 1.04 mg/dL [facility] GFR/1.73 sq M.predicted MDRD (S/P/Bld) [Vol rate/Area] 52.3 mL/min/{1.73_m2} Low - PINF [facility] Glucose [Mass/Vol] 127 mg/dL High 70 - 100 mg/dL [facility] Potassium [Moles/Vol] 3.7 mmol/L 3.5 - 5.1 mmol/L [facility] Sodium [Moles/Vol] 144 mmol/L 135 - 145 mmol/L [facility] Urea nitrogen [Mass/Vol] 70 mg/dL High 7 - 17 mg/dL [facility] CBC W Auto Differential pane l (Bld)Ordered By: Digna Hernandez on 08-07-2023 Erythrocyte distribution width (RBC) [Ratio] 14.6 % 11.5 - 15.0 % [facility] Hematocrit (Bld) [Volume fraction] 27.9 % Low 35.0 - 47.0 % [facility] Hemoglobin (Bld) [Mass/Vol] 8.6 g/dL Low 11.7 - 16.0 g/dL [facility] MCH (RBC) [Entitic mass] 33.7 pg 26.0 - 34.0 pg [facility] MCHC (RBC) [Mass/Vol] 30.8 % 30.5 - 36.0 % [facility] MCV (RBC) [Entitic vol] 109.4 fL High 77.0 - 99.0 fL [facility] Platelet mean volume (Bld) [Entitic vol] 12.4 fL 9.0 - 12.7 fL [facility] Platelets (Bld) [#/Vol] 205 10*3/uL 140 - 440 10*3/uL [facility] RBC (Bld) [#/Vol] 2.55 10*6/uL Low 3.80 - 5.2 0 10*6/uL [facility] WBC (Bld) [#/Vol] 7.0 10*3/uL 3.6 - 10.7 10*3/uL [facility] Hepatic function 2000 panelo n 08-07-2023 Albumin [Mass/Vol] 3.9 g/dL 3.5 - 5.0 g/dL [facility] ALP [Catalytic activity/Vol] 45 U/L 38 - 126 U/L [facility] ALT [Catalytic activity/Vol] 13 U/L 0 - 34 U/L [facility] AST [Catalytic activity/Vol] 22 U/L 15 - 46 U/L [facility] Bilirubin [Mass/Vol] 0.7 mg/dL 0.2 - 1 .3 mg/dL [facility] Bilirubin.conjugated [Mass/Vol] 0.0 mg/dL 0.0 - 0.3 mg/dL [facility] Protein [Mass/Vol] 6.1 g/dL Low 6.3 - 8.2 g/dL [facility] Laboratory - Chemistry and C hemistry - challengeon 08-07-2023 Glucose [Mass/Vol] 188 mg/dL High 70 - 100 mg/dL [facility] Glucose [Mass/Vol] 148 mg/dL High 70 - 100 mg/dL [facility] Glucose [Mass/Vol] 169 mg/dL High 70 - 100 mg/dL [facility] Glucose [Mass/Vol] 91 mg/dL 70 - 100 mg/dL [facility] Glucose [Mass/Vol] 82 mg/dL 70 - 100 mg/dL [facility] Laboratory - Hematology and Cell countson 08-07-2023 Anisocytosis Ql (Bld) Rare Abnormal (none) [facility] Band form neutrophils (Bld) [#/Vol] 0.1 10*3/uL High NINF - 0.0 10*3/uL [facility] Band form neutrophils/100 WBC (Bld) 1 % High NINF - 0 % [facility] Eosinophils (Bld) [#/Vol] 0.3 10*3/uL 0.0 - 0.5 10*3/uL [facility] Eosinophils/100 WBC (Bld) 4 % 0 - 6 % [facility] Lymphocytes (Bld) [#/Vol] 2.0 10*3/uL 1.0 - 4.3 10*3/uL [facility] Lymphocytes/100 WBC (Bld) 29 % 15 - 45 % [facility] Macrocytes Ql (Bld) Slight Abnormal (none) [facility] Monocytes (Bld) [#/Vol] 0.4 10*3/uL 0.0 - 0.9 10*3/uL [facility] Monocytes/100 WBC (Bld) 5 % 5 - 13 % [facility] Myelocytes (Bld) [#/Vol] 0.1 10*3/uL High NINF - 0.0 10*3/uL [facility] Myelocytes/100 WBC (Bld) 2 % High NINF - 0 % [facility] Neutrophils (Bld) [#/Vol] 4.2 10*3/uL 1.8 - 7.5 10*3/uL [facility] Poikilocytosis LM Ql (Bld) Rare Abnormal (none) [facility] Polychromasia LM Ql (Bld) Rare Abnormal (none) [facility] RBC morphology finding Nom (Bld) abnormal [facility] Segmented neutrophils/100 WBC (Bld) 59 % 38 - 82 % [facility] Stomatocytes LM Ql (Bld) Slight Abnormal (none) [facility] Laboratory - Microbiology an d Antimicrobial susceptibilityon 08-07-2023 Bacteria identified Cx Nom (Bld) No growth at 5 days [facility] No Panel Informationon 08-06 Interpretation and review of laboratory results Abnormal [facility] Interpretation and review of laboratory results Abnormal [facility] Interpretation and review of laboratory results Abnormal [facility] Interpretation and review of laboratory results Normal [facility] Interpretation and review of laboratory results Normal [facility] Bands Manual 1 [facility] Eosinophils Manual 4 High 0 - 1 [facility] Interpretation and review of laboratory results Abnormal [facility] Lymphocytes Manual 29 [facility] Monocytes Manual 5 [facility] Myelocytes Manual 2 [facility] Neutrophils Manual 60 [facility] Interpretation and review of laboratory results Abnormal [facility] aPTT Coag (Bld) [Time]on aPTT Coag (PPP) [Time] 53.9 s High 20.0 - 30.5 s [facility] Interpretation and review of laboratory results Abnormal [facility] Basic metabolic 1998 panelon 08-06-2023 Anion gap [Moles/Vol] 12 mmol/L 3 - 13 mmol/L [facility] Calcium [Mass/Vol] 9.2 mg/dL 8.4 - 10. 4 mg/dL [facility] Chloride [Moles/Vol] 101 mmol/L 98 - 10 7 mmol/L [facility] CO2 [Moles/Vol] 31 mmol/L High 22 - 30 mmol/L [facility] Creatinine [Mass/Vol] 1.09 mg/dL High 0.52 - 1.04 mg/dL [facility] GFR/1.73 sq M.predicted MDRD (S/P/Bld) [Vol rate/Area] 53.4 mL/min/{1.73_m2} Low - PINF [facility] Glucose [Mass/Vol] 149 mg/dL High 70 - 100 mg/dL [facility] Interpretation and review of laboratory results Abnormal [facility] Potassium [Moles/Vol] 3.8 mmol/L 3.5 - 5.1 mmol/L [facility] Sodium [Moles/Vol] 144 mmol/L 135 - 145 mmol/L [facility] Urea nitrogen [Mass/Vol] 71 mg/dL High 7 - 17 mg/dL [facility] Anion gap [Moles/Vol] 8 mmol/L 3 - 13 mmol/L [facility] Calcium [Mass/Vol] 9.0 mg/dL 8.4 - 10. 4 mg/dL [facility] Chloride [Moles/Vol] 104 mmol/L 98 - 10 7 mmol/L [facility] CO2 [Moles/Vol] 33 mmol/L High 22 - 30 mmol/L [facility] Creatinine [Mass/Vol] 1.11 mg/dL High 0.52 - 1.04 mg/dL [facility] GFR/1.73 sq M.predicted MDRD (S/P/Bld) [Vol rate/Area] 52.3 mL/min/{1.73_m2} Low - PINF [facility] Glucose [Mass/Vol] 136 mg/dL High 70 - 100 mg/dL [facility] Potassium [Moles/Vol] 3.9 mmol/L 3.5 - 5.1 mmol/L [facility] Sodium [Moles/Vol] 145 mmol/L 135 - 145 mmol/L [facility] Urea nitrogen [Mass/Vol] 71 mg/dL High 7 - 17 mg/dL [facility] CBC W Auto Differential pane l (Bld)on 08-06-2023 Erythrocyte distribution width (RBC) [Ratio] 14.6 % 11.5 - 15.0 % [facility] Hematocrit (Bld) [Volume fraction] 22.4 % Low 35.0 - 47.0 % [facility] Hemoglobin (Bld) [Mass/Vol] 7.0 g/dL Low 11.7 - 16.0 g/dL [facility] Interpretation and review of laboratory results Abnormal [facility] MCH (RBC) [Entitic mass] 33.7 pg 26.0 - 34.0 pg [facility] MCHC (RBC) [Mass/Vol] 31.3 % 30.5 - 36.0 % [facility] MCV (RBC) [Entitic vol] 107.7 fL High 77.0 - 99.0 fL [facility] Platelet mean volume (Bld) [Entitic vol] 12.2 fL 9.0 - 12.7 fL [facility] Platelets (Bld) [#/Vol] 119 10*3/uL Low 140 - 440 10*3/uL [facility] RBC (Bld) [#/Vol] 2.08 10*6/uL Low 3.80 - 5.2 0 10*6/uL [facility] WBC (Bld) [#/Vol] 4.5 10*3/uL 3.6 - 10.7 10*3/uL [facility] CBC panel Auto (Bld)Ordered By: Simona Larios on 08-06-2023 Erythrocyte distribution width (RBC) [Ratio] 14.7 % 11.5 - 15.0 % [facility] Hematocrit (Bld) [Volume fraction] 26.4 % Low 35.0 - 47.0 % [facility] Hemoglobin (Bld) [Mass/Vol] 8.2 g/dL Low 11.7 - 16.0 g/dL [facility] Interpretation and review of laboratory results Abnormal [facility] MCH (RBC) [Entitic mass] 33.5 pg 26.0 - 34.0 pg [facility] MCHC (RBC) [Mass/Vol] 31.1 % 30.5 - 36.0 % [facility] MCV (RBC) [Entitic vol] 107.8 fL High 77.0 - 99.0 fL [facility] Platelet mean volume (Bld) [Entitic vol] 12.7 fL 9.0 - 12.7 fL [facility] Platelets (Bld) [#/Vol] 176 10*3/uL 140 - 440 10*3/uL [facility] RBC (Bld) [#/Vol] 2.45 10*6/uL Low 3.80 - 5.2 0 10*6/uL [facility] WBC (Bld) [#/Vol] 8.5 10*3/uL 3.6 - 10.7 10*3/uL [facility] Hepatic function 2000 panelo n 08-06-2023 Albumin [Mass/Vol] 3.7 g/dL 3.5 - 5.0 g/dL [facility] ALP [Catalytic activity/Vol] 36 U/L Low 38 - 126 U/L [facility] ALT [Catalytic activity/Vol] 12 U/L 0 - 34 U/L [facility] AST [Catalytic activity/Vol] 19 U/L 15 - 46 U/L [facility] Bilirubin [Mass/Vol] 0.6 mg/dL 0.2 - 1 .3 mg/dL [facility] Bilirubin.conjugated [Mass/Vol] 0.0 mg/dL 0.0 - 0.3 mg/dL [facility] Protein [Mass/Vol] 5.8 g/dL Low 6.3 - 8.2 g/dL [facility] Laboratory - Chemistry and C hemistry - challengeon 08-06-2023 Glucose [Mass/Vol] 176 mg/dL High 70 - 100 mg/dL [facility] Glucose [Mass/Vol] 107 mg/dL High 70 - 100 mg/dL [facility] Glucose [Mass/Vol] 141 mg/dL High 70 - 100 mg/dL [facility] Magnesium [Mass/Vol] 2.2 mg/dL 1.6 - 2 .3 mg/dL [facility] Laboratory - Hematology and Cell countson 08-06-2023 Eosinophils (Bld) [#/Vol] 0.2 10*3/uL 0.0 - 0.5 10*3/uL [facility] Eosinophils/100 WBC (Bld) 5 % 0 - 6 % [facility] Lymphocytes (Bld) [#/Vol] 1.4 10*3/uL 1.0 - 4.3 10*3/uL [facility] Lymphocytes/100 WBC (Bld) 30 % 15 - 45 % [facility] Metamyelocytes (Bld) [#/Vol] 0.0 10*3/uL NINF - 0.0 10*3/uL [facility] Metamyelocytes/100 WBC (Bld) 1 % High NINF - 0 % [facility] Monocytes (Bld) [#/Vol] 0.2 10*3/uL 0.0 - 0.9 10*3/uL [facility] Monocytes/100 WBC (Bld) 5 % 5 - 13 % [facility] Neutrophils (Bld) [#/Vol] 2.6 10*3/uL 1.8 - 7.5 10*3/uL [facility] Nucleated RBC/100 WBC (Bld) [Ratio] 1 % 0 - 2 % [facility] RBC morphology finding Nom (Bld) Normal [facility] Segmented neutrophils/100 WBC (Bld) 57 % 38 - 82 % [facility] Variant lymphocytes (Bld) [#/Vol] 0.0 10*3/uL NINF - 0.0 10*3/uL [facility] Variant lymphocytes/100 WBC (Bld) 1 % High NINF - 0 % [facility] No Panel Informationon 08-05 Interpretation and review of laboratory results Abnormal [facility] RADIOLOGY SYSTEM [facility] RADIOLOGY SYSTEM [facility] Radiology Study observation (narrative) [facility] Interpretation and review of laboratory results Abnormal [facility] Interpretation and review of laboratory results Abnormal [facility] Atypical Lymphocytes Manual 1 [facility] Eosinophils Manual 5 High 0 - 1 [facility] Interpretation and review of laboratory results Abnormal [facility] Lymphocytes Manual 29 [facility] Metamyelocytes Manual 1 [facility] Monocytes Manual 5 [facility] Neutrophils Manual 55 [facility] Interpretation and review of laboratory results Normal [facility] Interpretation and review of laboratory results Abnormal [facility] No Panel InformationOrdered By: Yolanda Barr on 08-06-2023 [facility] Work Phone: Phosphate [Moles/Vol]on Phosphate [Mass/Vol] 3.7 mg/dL 2.5 - 4 .5 mg/dL [facility] aPTT Coag (Bld) [Time]on aPTT Coag (PPP) [Time] 58.2 s High 20.0 - 30.5 s [facility] Interpretation and review of laboratory results Abnormal [facility] aPTT Coag (PPP) [Time] 50.7 s High 20.0 - 30.5 s [facility] Interpretation and review of laboratory results Abnormal [facility] aPTT Coag (PPP) [Time] 47.5 s High 20.0 - 30.5 s [facility] Interpretation and review of laboratory results Abnormal [facility] aPTT Coag (PPP) [Time] 96.8 s High 20.0 - 30.5 s [facility] Interpretation and review of laboratory results Abnormal [facility] Basic metabolic 1998 panelon 08-05-2023 Anion gap [Moles/Vol] 9 mmol/L 3 - 13 mmol/L [facility] Calcium [Mass/Vol] 8.8 mg/dL 8.4 - 10. 4 mg/dL [facility] Chloride [Moles/Vol] 102 mmol/L 98 - 10 7 mmol/L [facility] CO2 [Moles/Vol] 30 mmol/L 22 - 30 mmol/L [facility] Creatinine [Mass/Vol] 1.09 mg/dL High 0.52 - 1.04 mg/dL [facility] GFR/1.73 sq M.predicted MDRD (S/P/Bld) [Vol rate/Area] 53.4 mL/min/{1.73_m2} Low - PINF [facility] Glucose [Mass/Vol] 207 mg/dL High 70 - 100 mg/dL [facility] Interpretation and review of laboratory results Abnormal [facility] Potassium [Moles/Vol] 4.2 mmol/L 3.5 - 5.1 mmol/L [facility] Sodium [Moles/Vol] 141 mmol/L 135 - 145 mmol/L [facility] Urea nitrogen [Mass/Vol] 72 mg/dL High 7 - 17 mg/dL [facility] Anion gap [Moles/Vol] 9 mmol/L 3 - 13 mmol/L [facility] Calcium [Mass/Vol] 8.8 mg/dL 8.4 - 10. 4 mg/dL [facility] Chloride [Moles/Vol] 105 mmol/L 98 - 10 7 mmol/L [facility] CO2 [Moles/Vol] 29 mmol/L 22 - 30 mmol/L [facility] Creatinine [Mass/Vol] 1.09 mg/dL High 0.52 - 1.04 mg/dL [facility] GFR/1.73 sq M.predicted MDRD (S/P/Bld) [Vol rate/Area] 53.4 mL/min/{1.73_m2} Low - PINF [facility] Glucose [Mass/Vol] 154 mg/dL High 70 - 100 mg/dL [facility] Potassium [Moles/Vol] 4.0 mmol/L 3.5 - 5.1 mmol/L [facility] Sodium [Moles/Vol] 143 mmol/L 135 - 145 mmol/L [facility] Urea nitrogen [Mass/Vol] 74 mg/dL High 7 - 17 mg/dL [facility] CBC W Auto Differential pane l (Bld)on 08-05-2023 Erythrocyte distribution width (RBC) [Ratio] 14.5 % 11.5 - 15.0 % [facility] Hematocrit (Bld) [Volume fraction] 24.1 % Low 35.0 - 47.0 % [facility] Hemoglobin (Bld) [Mass/Vol] 7.8 g/dL Low 11.7 - 16.0 g/dL [facility] MCH (RBC) [Entitic mass] 34.4 pg High 26.0 - 34.0 pg [facility] MCHC (RBC) [Mass/Vol] 32.4 % 30.5 - 36.0 % [facility] MCV (RBC) [Entitic vol] 106.2 fL High 77.0 - 99.0 fL [facility] Platelet mean volume (Bld) [Entitic vol] 13.0 fL High 9.0 - 12.7 fL [facility] Platelets (Bld) [#/Vol] 103 10*3/uL Low 140 - 440 10*3/uL [facility] RBC (Bld) [#/Vol] 2.27 10*6/uL Low 3.80 - 5.2 0 10*6/uL [facility] WBC (Bld) [#/Vol] 6.0 10*3/uL 3.6 - 10.7 10*3/uL [facility] Hepatic function 2000 panelo n 08-05-2023 Albumin [Mass/Vol] 3.5 g/dL 3.5 - 5.0 g/dL [facility] ALP [Catalytic activity/Vol] 45 U/L 38 - 126 U/L [facility] ALT [Catalytic activity/Vol] 12 U/L 0 - 34 U/L [facility] AST [Catalytic activity/Vol] 17 U/L 15 - 46 U/L [facility] Bilirubin [Mass/Vol] 0.5 mg/dL 0.2 - 1 .3 mg/dL [facility] Bilirubin.conjugated [Mass/Vol] 0.0 mg/dL 0.0 - 0.3 mg/dL [facility] Protein [Mass/Vol] 5.8 g/dL Low 6.3 - 8.2 g/dL [facility] Laboratory - Chemistry and C hemistry - challengeon 08-05-2023 Glucose [Mass/Vol] 210 mg/dL High 70 - 100 mg/dL [facility] Glucose [Mass/Vol] 271 mg/dL High 70 - 100 mg/dL [facility] Magnesium [Mass/Vol] 2.0 mg/dL 1.6 - 2 .3 mg/dL [facility] Glucose [Mass/Vol] 127 mg/dL High 70 - 100 mg/dL [facility] Glucose [Mass/Vol] 174 mg/dL High 70 - 100 mg/dL [facility] Magnesium [Mass/Vol] 2.1 mg/dL 1.6 - 2 .3 mg/dL [facility] Laboratory - Hematology and Cell countson 08-05-2023 Basophils (Bld) [#/Vol] 0.1 10*3/uL 0.0 - 0.2 10*3/uL [facility] Basophils/100 WBC (Bld) 1 % 0 - 2 % [facility] Eosinophils (Bld) [#/Vol] 0.2 10*3/uL 0.0 - 0.5 10*3/uL [facility] Eosinophils/100 WBC (Bld) 3 % 0 - 6 % [facility] Hypochromia Ql (Bld) Rare Abnormal (none) [facility] Lymphocytes (Bld) [#/Vol] 2.8 10*3/uL 1.0 - 4.3 10*3/uL [facility] Lymphocytes/100 WBC (Bld) 46 % High 15 - 45 % [facility] Monocytes (Bld) [#/Vol] 0.2 10*3/uL 0.0 - 0.9 10*3/uL [facility] Monocytes/100 WBC (Bld) 4 % Low 5 - 13 % [facility] Neutrophils (Bld) [#/Vol] 2.6 10*3/uL 1.8 - 7.5 10*3/uL [facility] Promyelocytes (Bld) [#/Vol] 0.1 10*3/uL High NINF - 0.0 10*3/uL [facility] Promyelocytes/100 WBC (Bld) 2 % High NINF - 0 % [facility] RBC morphology finding Nom (Bld) abnormal [facility] Segmented neutrophils/100 WBC (Bld) 44 % 38 - 82 % [facility] Stomatocytes LM Ql (Bld) Slight Abnormal (none) [facility] No Panel Informationon 08-04 Interpretation and review of laboratory results Abnormal [facility] Interpretation and review of laboratory results Abnormal [facility] Interpretation and review of laboratory results Normal [facility] Interpretation and review of laboratory results Abnormal [facility] Interpretation and review of laboratory results Abnormal [facility] Basophils Manual 1 [facility] Eosinophils Manual 3 High 0 - 1 [facility] Interpretation and review of laboratory results Abnormal [facility] Lymphocytes Manual 46 [facility] Monocytes Manual 4 [facility] Neutrophils Manual 44 [facility] Promyelocytes Manual 2 [facility] Interpretation and review of laboratory results Abnormal [facility] Interpretation and review of laboratory results Normal [facility] Phosphate [Moles/Vol]on Phosphate [Mass/Vol] 3.5 mg/dL 2.5 - 4 .5 mg/dL [facility] Phosphate [Mass/Vol] 2.9 mg/dL 2.5 - 4 .5 mg/dL [facility] XR Chest Single viewon 08-04 [facility] RADIOLOGY SYSTEM [facility] EM[facility]GENC[facility] RADIOLOGY SYSTEM [facility] Radiology Study observation (narrative) [facility] aPTT Coag (Bld) [Time]on aPTT Coag (PPP) [Time] 66.1 s High 20.0 - 30.5 s [facility] Interpretation and review of laboratory results Abnormal [facility] aPTT Coag (PPP) [Time] 53.5 s High 20.0 - 30.5 s [facility] Interpretation and review of laboratory results Abnormal [facility] aPTT Coag (PPP) [Time] 48.1 s High 20.0 - 30.5 s [facility] Interpretation and review of laboratory results Abnormal [facility] Bacteria identified Cx Nom ( Bld)on 08-04-2023 Interpretation and review of laboratory results Normal [facility] Basic metabolic 1998 panelon 08-04-2023 Anion gap [Moles/Vol] 7 mmol/L 3 - 13 mmol/L [facility] Calcium [Mass/Vol] 8.6 mg/dL 8.4 - 10. 4 mg/dL [facility] Chloride [Moles/Vol] 106 mmol/L 98 - 10 7 mmol/L [facility] CO2 [Moles/Vol] 28 mmol/L 22 - 30 mmol/L [facility] Creatinine [Mass/Vol] 1.16 mg/dL High 0.52 - 1.04 mg/dL [facility] GFR/1.73 sq M.predicted MDRD (S/P/Bld) [Vol rate/Area] 49.6 mL/min/{1.73_m2} Low - PINF [facility] Glucose [Mass/Vol] 208 mg/dL High 70 - 100 mg/dL [facility] Interpretation and review of laboratory results Abnormal [facility] Potassium [Moles/Vol] 3.5 mmol/L 3.5 - 5.1 mmol/L [facility] Sodium [Moles/Vol] 141 mmol/L 135 - 145 mmol/L [facility] Urea nitrogen [Mass/Vol] 73 mg/dL High 7 - 17 mg/dL [facility] Anion gap [Moles/Vol] 8 mmol/L 3 - 13 mmol/L [facility] Calcium [Mass/Vol] 8.3 mg/dL Low 8.4 - 10. 4 mg/dL [facility] Chloride [Moles/Vol] 105 mmol/L 98 - 10 7 mmol/L [facility] CO2 [Moles/Vol] 27 mmol/L 22 - 30 mmol/L [facility] Creatinine [Mass/Vol] 1.15 mg/dL High 0.52 - 1.04 mg/dL [facility] GFR/1.73 sq M.predicted MDRD (S/P/Bld) [Vol rate/Area] 50.1 mL/min/{1.73_m2} Low - PINF [facility] Glucose [Mass/Vol] 256 mg/dL High 70 - 100 mg/dL [facility] Potassium [Moles/Vol] 4.0 mmol/L 3.5 - 5.1 mmol/L [facility] Sodium [Moles/Vol] 140 mmol/L 135 - 145 mmol/L [facility] Urea nitrogen [Mass/Vol] 71 mg/dL High 7 - 17 mg/dL [facility] Blood type and Crossmatch gillian jakob (Bld)on 08-04-2023 ABO group Nom (Bld) A [facility] Blood group antibody screen GEL Ql Negative [facility] D Ag Ql (RBC) Positive [facility] CBC W Auto Differential pane l (Bld)on 08-04-2023 Erythrocyte distribution width (RBC) [Ratio] 14.4 % 11.5 - 15.0 % [facility] Hematocrit (Bld) [Volume fraction] 23.9 % Low 35.0 - 47.0 % [facility] Hemoglobin (Bld) [Mass/Vol] 7.7 g/dL Low 11.7 - 16.0 g/dL [facility] IPF 7 [facility] MCH (RBC) [Entitic mass] 33.9 pg 26.0 - 34.0 pg [facility] MCHC (RBC) [Mass/Vol] 32.2 % 30.5 - 36.0 % [facility] MCV (RBC) [Entitic vol] 105.3 fL High 77.0 - 99.0 fL [facility] Platelet mean volume (Bld) [Entitic vol] 12.3 fL 9.0 - 12.7 fL [facility] Platelets (Bld) [#/Vol] 71 10*3/uL Low 140 - 440 10*3/uL [facility] RBC (Bld) [#/Vol] 2.27 10*6/uL Low 3.80 - 5.2 0 10*6/uL [facility] WBC (Bld) [#/Vol] 3.6 10*3/uL 3.6 - 10.7 10*3/uL [facility] CBC panel Auto (Bld)on 08-03 Erythrocyte distribution width (RBC) [Ratio] 14.4 % 11.5 - 15.0 % [facility] Hematocrit (Bld) [Volume fraction] 23.8 % Low 35.0 - 47.0 % [facility] Hemoglobin (Bld) [Mass/Vol] 7.5 g/dL Low 11.7 - 16.0 g/dL [facility] Interpretation and review of laboratory results Abnormal [facility] IPF 10 [facility] MCH (RBC) [Entitic mass] 33.6 pg 26.0 - 34.0 pg [facility] MCHC (RBC) [Mass/Vol] 31.5 % 30.5 - 36.0 % [facility] MCV (RBC) [Entitic vol] 106.7 fL High 77.0 - 99.0 fL [facility] Platelet mean volume (Bld) [Entitic vol] 12.4 fL 9.0 - 12.7 fL [facility] Platelets (Bld) [#/Vol] 88 10*3/uL Low 140 - 440 10*3/uL [facility] RBC (Bld) [#/Vol] 2.23 10*6/uL Low 3.80 - 5.2 0 10*6/uL [facility] WBC (Bld) [#/Vol] 5.1 10*3/uL 3.6 - 10.7 10*3/uL [facility] Calcium.ionized [Moles/Vol]o n 08-04-2023 Calcium.ionized (Bld) [Moles/Vol] 4.20 mg/dL Low 4.30 - 5.20 mg/dL [facility] Interpretation and review of laboratory results Abnormal [facility] PH, IONIZED CALCIUM 7.49 High 7.31 - 7.46 [facility] Hepatic function 2000 panelo n 08-04-2023 Albumin [Mass/Vol] 3.4 g/dL Low 3.5 - 5.0 g/dL [facility] ALP [Catalytic activity/Vol] 51 U/L 38 - 126 U/L [facility] ALT [Catalytic activity/Vol] 13 U/L 0 - 34 U/L [facility] AST [Catalytic activity/Vol] 15 U/L 15 - 46 U/L [facility] Bilirubin [Mass/Vol] 0.5 mg/dL 0.2 - 1 .3 mg/dL [facility] Bilirubin.conjugated [Mass/Vol] 0.0 mg/dL 0.0 - 0.3 mg/dL [facility] Protein [Mass/Vol] 5.7 g/dL Low 6.3 - 8.2 g/dL [facility] Laboratory - Chemistry and C hemistry - challengeon 08-04-2023 Glucose [Mass/Vol] 202 mg/dL High 70 - 100 mg/dL [facility] Glucose [Mass/Vol] 223 mg/dL High 70 - 100 mg/dL [facility] Magnesium [Mass/Vol] 2.1 mg/dL 1.6 - 2 .3 mg/dL [facility] Glucose [Mass/Vol] 254 mg/dL High 70 - 100 mg/dL [facility] Glucose [Mass/Vol] 349 mg/dL High 70 - 100 mg/dL [facility] Magnesium [Mass/Vol] 2.1 mg/dL 1.6 - 2 .3 mg/dL [facility] Laboratory - Drug toxicology on 08-04-2023 Vancomycin trough [Mass/Vol] 30.2 ug/mL High 15.0 - 20.0 ug/mL [facility] Laboratory - Hematology and Cell countson 08-04-2023 Basophils (Bld) [#/Vol] 0.0 10*3/uL 0.0 - 0.2 10*3/uL [facility] Basophils/100 WBC (Bld) 1 % 0 - 2 % [facility] Eosinophils (Bld) [#/Vol] 0.0 10*3/uL 0.0 - 0.5 10*3/uL [facility] Eosinophils/100 WBC (Bld) 1 % 0 - 6 % [facility] Lymphocytes (Bld) [#/Vol] 0.8 10*3/uL Low 1.0 - 4.3 10*3/uL [facility] Lymphocytes/100 WBC (Bld) 23 % 15 - 45 % [facility] Monocytes (Bld) [#/Vol] 0.4 10*3/uL 0.0 - 0.9 10*3/uL [facility] Monocytes/100 WBC (Bld) 12 % 5 - 13 % [facility] Myelocytes (Bld) [#/Vol] 0.0 10*3/uL NINF - 0.0 10*3/uL [facility] Myelocytes/100 WBC (Bld) 1 % High NINF - 0 % [facility] Neutrophils (Bld) [#/Vol] 2.3 10*3/uL 1.8 - 7.5 10*3/uL [facility] Nucleated RBC/100 WBC (Bld) [Ratio] 1 % 0 - 2 % [facility] RBC morphology finding Nom (Bld) Normal [facility] Segmented neutrophils/100 WBC (Bld) 63 % 38 - 82 % [facility] Laboratory - Microbiology an d Antimicrobial susceptibilityon 08-04-2023 Bacteria identified Cx Nom (Bld) No growth at 5 days [facility] No Panel Informationon 08-03 Interpretation and review of laboratory results Abnormal [facility] Interpretation and review of laboratory results Abnormal [facility] Interpretation and review of laboratory results Normal [facility] Interpretation and review of laboratory results Abnormal [facility] Interpretation and review of laboratory results Abnormal [facility] Basophils Manual 1 [facility] Eosinophils Manual 1 0 - 1 [facility] Interpretation and review of laboratory results Abnormal [facility] Lymphocytes Manual 23 [facility] Monocytes Manual 12 [facility] Myelocytes Manual 1 [facility] [facility] Neutrophils Manual 64 [facility] Interpretation and review of laboratory results Normal [facility] Interpretation and review of laboratory results Abnormal [facility] Phosphate [Moles/Vol]on Phosphate [Mass/Vol] 3.1 mg/dL 2.5 - 4 .5 mg/dL [facility] Phosphate [Mass/Vol] 3.1 mg/dL 2.5 - 4 .5 mg/dL [facility] Vancomycin trough [Mass/Vol] on 08-04-2023 Interpretation and review of laboratory results Abnormal [facility] XR Chest Single viewon 08-03 [facility] EM[facility]PART[facility] RADIOLOGY [facility] RADIOLOGY [facility] Radiology Study observation (narrative) [facility] aPTT Coag (Bld) [Time]on aPTT Coag (PPP) [Time] 57.2 s High 20.0 - 30.5 s [facility] Interpretation and review of laboratory results Abnormal [facility] Bacteria identified Aer cx N om (Lower resp)Ordered By: Kriss Davis on 08-03-2023 Gram Stain Result Few Polymorphonuclea r leukocytes per low power field [facility] Gram Stain Result Few Epithelial cells per low power field [facility] Gram Stain Result No organisms seen [facility] Bacteria identified Cx Nom ( Bld)Ordered By: Adwoa Jefferson on 08-03-2023 Interpretation and review of laboratory results Abnormal [facility] Basic metabolic 1998 panelon 08-03-2023 Anion gap [Moles/Vol] 9 mmol/L 3 - 13 mmol/L [facility] Calcium [Mass/Vol] 8.3 mg/dL Low 8.4 - 10. 4 mg/dL [facility] Chloride [Moles/Vol] 104 mmol/L 98 - 10 7 mmol/L [facility] CO2 [Moles/Vol] 29 mmol/L 22 - 30 mmol/L [facility] Creatinine [Mass/Vol] 1.27 mg/dL High 0.52 - 1.04 mg/dL [facility] GFR/1.73 sq M.predicted MDRD (S/P/Bld) [Vol rate/Area] 44.5 mL/min/{1.73_m2} Low - PINF [facility] Glucose [Mass/Vol] 227 mg/dL High 70 - 100 mg/dL [facility] Interpretation and review of laboratory results Abnormal [facility] Potassium [Moles/Vol] 3.4 mmol/L Low 3.5 - 5.1 mmol/L [facility] Sodium [Moles/Vol] 142 mmol/L 135 - 145 mmol/L [facility] Urea nitrogen [Mass/Vol] 72 mg/dL High 7 - 17 mg/dL [facility] Anion gap [Moles/Vol] 12 mmol/L 3 - 13 mmol/L [facility] Calcium [Mass/Vol] 8.3 mg/dL Low 8.4 - 10. 4 mg/dL [facility] Chloride [Moles/Vol] 103 mmol/L 98 - 10 7 mmol/L [facility] CO2 [Moles/Vol] 25 mmol/L 22 - 30 mmol/L [facility] Creatinine [Mass/Vol] 1.36 mg/dL High 0.52 - 1.04 mg/dL [facility] [employer] GFR/1.73 sq M.predicted MDRD (S/P/Bld) [Vol rate/Area] 41.0 mL/min/{1.73_m2} Low - PINF [facility] [employer] Glucose [Mass/Vol] 234 mg/dL High 70 - 100 mg/dL [facility] [employer] Potassium [Moles/Vol] 4.0 mmol/L 3.5 - 5.1 mmol/L [facility] [employer] Sodium [Moles/Vol] 140 mmol/L 135 - 145 mmol/L [facility] [employer] Urea nitrogen [Mass/Vol] 67 mg/dL High 7 - 17 mg/dL [facility] [employer] Anion gap [Moles/Vol] 9 mmol/L 3 - 13 mmol/L [facility] [employer] Calcium [Mass/Vol] 8.4 mg/dL 8.4 - 10. 4 mg/dL [facility] [employer] Chloride [Moles/Vol] 105 mmol/L 98 - 10 7 mmol/L [facility] [employer] CO2 [Moles/Vol] 27 mmol/L 22 - 30 mmol/L [facility] [employer] [facility] Creatinine [Mass/Vol] 1.27 mg/dL High 0.52 - 1.04 mg/dL [facility] [employer] GFR/1.73 sq M.predicted MDRD (S/P/Bld) [Vol rate/Area] 44.5 mL/min/{1.73_m2} Low - PINF [facility] [employer] Glucose [Mass/Vol] 216 mg/dL High 70 - 100 mg/dL [facility] Interpretation and review of laboratory results Abnormal [facility] Potassium [Moles/Vol] 4.0 mmol/L 3.5 - 5.1 mmol/L [facility] [employer] Sodium [Moles/Vol] 141 mmol/L 135 - 145 mmol/L [facility] Urea nitrogen [Mass/Vol] 70 mg/dL High 7 - 17 mg/dL [facility] CBC W Auto Differential pane l (Bld)on 08-03-2023 Basophils (Bld) [#/Vol] 0.0 10*3/uL 0.0 - 0.2 10*3/uL [facility] Basophils/100 WBC (Bld) 0.2 % 0.0 - 2.0 % [facility] Eosinophils (Bld) [#/Vol] 0.0 10*3/uL 0.0 - 0.5 10*3/uL [facility] Eosinophils/100 WBC (Bld) 0.2 % 0.0 - 6.0 % [facility] Erythrocyte distribution width (RBC) [Ratio] 14.6 % 11.5 - 15.0 % [facility] Hematocrit (Bld) [Volume fraction] 25.7 % Low 35.0 - 47.0 % [facility] Hemoglobin (Bld) [Mass/Vol] 8.2 g/dL Low 11.7 - 16.0 g/dL [facility] Immature granulocytes (Bld) [#/Vol] 0.0 10*3/uL NINF - 0.1 10*3/uL [facility] Immature granulocytes/100 WBC (Bld) 0.6 % 0.0 - 2.0 % [facility] Interpretation and review of laboratory results Abnormal [facility] IPF 8 [facility] Lymphocytes (Bld) [#/Vol] 0.7 10*3/uL Low 1.0 - 4.3 10*3/uL [facility] Lymphocytes/100 WBC (Bld) 12.1 % Low 15.0 - 45.0 % [facility] MCH (RBC) [Entitic mass] 33.5 pg 26.0 - 34.0 pg [facility] MCHC (RBC) [Mass/Vol] 31.9 % 30.5 - 36.0 % [facility] MCV (RBC) [Entitic vol] 104.9 fL High 77.0 - 99.0 fL [facility] Monocytes (Bld) [#/Vol] 0.3 10*3/uL 0.0 - 0.9 10*3/uL [facility] Monocytes/100 WBC (Bld) 6.4 % 5.0 - 13.0 % [facility] Neutrophils (Bld) [#/Vol] 4.3 10*3/uL 1.8 - 7.5 10*3/uL [facility] Neutrophils/100 WBC (Bld) 80.5 % 38.0 - 82.0 % [facility] Nucleated RBC/100 WBC (Bld) [Ratio] 0.0 % [facility] Platelet mean volume (Bld) [Entitic vol] 12.7 fL 9.0 - 12.7 fL [facility] Platelets (Bld) [#/Vol] 72 10*3/uL Low 140 - 440 10*3/uL [facility] RBC (Bld) [#/Vol] 2.45 10*6/uL Low 3.80 - 5.2 0 10*6/uL [facility] WBC (Bld) [#/Vol] 5.4 10*3/uL 3.6 - 10.7 10*3/uL [facility] CT Abdomen WO contraston [facility] CT Abdomen WO contrastOrdere d By: Leonor Cardona on 08-03-2023 [facility] Work Phone: CT Chest WO contraston 08-02 [facility] [place] Calcium.ionized [Moles/Vol]o n 08-03-2023 Calcium.ionized (Bld) [Moles/Vol] 4.40 mg/dL 4.30 - 5.20 mg/dL [facility] Interpretation and review of laboratory results Normal [facility] PH, IONIZED CALCIUM 7.36 7.31 - 7.46 [facility] Calcium.ionized (Bld) [Moles/Vol] 4.30 mg/dL 4.30 - 5.20 mg/dL [facility] Interpretation and review of laboratory results Normal [facility] PH, IONIZED CALCIUM 7.40 7.31 - 7.46 [facility] Calcium.ionized (Bld) [Moles/Vol] 4.30 mg/dL 4.30 - 5.20 mg/dL [facility] Interpretation and review of laboratory results Normal [facility] PH, IONIZED CALCIUM 7.43 7.31 - 7.46 [facility] Calcium.ionized (Bld) [Moles/Vol] 4.20 mg/dL Low 4.30 - 5.20 mg/dL [facility] Interpretation and review of laboratory results Abnormal [facility] PH, IONIZED CALCIUM 7.44 7.31 - 7.46 [facility] Hepatic function 2000 panelo n 08-03-2023 Albumin [Mass/Vol] 3.2 g/dL Low 3.5 - 5.0 g/dL [facility] ALP [Catalytic activity/Vol] 59 U/L 38 - 126 U/L [facility] ALT [Catalytic activity/Vol] 15 U/L 0 - 34 U/L [facility] AST [Catalytic activity/Vol] 18 U/L 15 - 46 U/L [facility] Bilirubin [Mass/Vol] 0.5 mg/dL 0.2 - 1 .3 mg/dL [facility] Bilirubin.conjugated [Mass/Vol] 0.0 mg/dL 0.0 - 0.3 mg/dL [facility] Protein [Mass/Vol] 5.7 g/dL Low 6.3 - 8.2 g/dL [facility] Laboratory - Chemistry and C hemistry - challengeon 08-03-2023 Glucose [Mass/Vol] 276 mg/dL High 70 - 100 mg/dL [facility] Glucose [Mass/Vol] 302 mg/dL High 70 - 100 mg/dL [facility] Glucose [Mass/Vol] 290 mg/dL High 70 - 100 mg/dL [facility] Magnesium [Mass/Vol] 2.0 mg/dL 1.6 - 2 .3 mg/dL [facility] Glucose [Mass/Vol] 265 mg/dL High 70 - 100 mg/dL [facility] Procalcitonin [Mass/Vol] 17.21 ng/mL High 0.00 - 0.09 ng/mL [facility] Glucose [Mass/Vol] 334 mg/dL High 70 - 100 mg/dL [facility] Magnesium [Mass/Vol] 2.1 mg/dL 1.6 - 2 .3 mg/dL [facility] Magnesium [Mass/Vol] 2.0 mg/dL 1.6 - 2 .3 mg/dL [facility] Laboratory - Microbiology an d Antimicrobial susceptibilityOrdered By: Adwoa Jefferson on 08-03-2023 Bacteria identified Cx Nom (Bld) Escherichia coli Critically abnormal [facility] Laboratory - Microbiology an d Antimicrobial susceptibilityOrdered By: Kriss Davis on 08-03-2023 Bacteria identified Aer cx Nom (Lower resp) No growth of normal respiratory gaby. [facility] No Panel Informationon 08-02 Interpretation and review of laboratory results Abnormal [facility] Interpretation and review of laboratory results Abnormal [facility] Interpretation and review of laboratory results Abnormal [facility] Interpretation and review of laboratory results Normal [facility] Interpretation and review of laboratory results Abnormal [facility] Extra Tube Hold for add-ons. [facility] Interpretation and review of laboratory results Abnormal [facility] Interpretation and review of laboratory results Abnormal [facility] Interpretation and review of laboratory results Normal [facility] Interpretation and review of laboratory results Normal [facility] No Panel InformationOrdered By: Ashli Waldrop on 08-03-2023 INTERPRETATION (PF4) Negative Negative [facility] PLATELET AB, HEPARIN 0.109 NINF [facility] Phosphate [Moles/Vol]on Phosphate [Mass/Vol] 3.3 mg/dL 2.5 - 4 .5 mg/dL [facility] Phosphate [Mass/Vol] 3.3 mg/dL 2.5 - 4 .5 mg/dL [facility] Phosphate [Mass/Vol] 3.2 mg/dL 2.5 - 4 .5 mg/dL [facility] Procalcitonin [Mass/Vol]on 08-03-2023 Interpretation and review of laboratory results Abnormal [facility] US Abdomen limitedon 024 [facility] EM[facility] RADIOLOGY SYSTEM [facility] EMERGENCY DEPARTMENT RADIOLOGY [facility] Radiology Study observation (narrative) [facility] aPTT Coag (Bld) [Time]on aPTT Coag (PPP) [Time] 56.1 s High 20.0 - 30.5 s [facility] Interpretation and review of laboratory results Abnormal [facility] aPTT Coag (PPP) [Time] 57.8 s High 20.0 - 30.5 s [facility] Interpretation and review of laboratory results Abnormal [facility] aPTT Coag (PPP) [Time] 55.2 s High 20.0 - 30.5 s [facility] Interpretation and review of laboratory results Abnormal [facility] ANTI PLT FACTOR 4 ABon 08-01 Heparin induced platelet IgG Carlos (S) [Interp] Negative Normal Negative [facility] Comment on above: Order Comment: Speci men Type: BLOOD SPECIMEN Ordering Facility: [facility] Address: [facility], [place] [address] Result Comment: No a nti-platelet factor 4 IgG antibody is detected by TONI assay. Heparin-induced thrombocytopenia (HIT) is unlikely, but should be excluded based on clinical factors. Performed By: #### P LATF4 #### [facility] CLIA [id number] [address] [place] [address] [place] Platelet factor 4 Qn (PPP) 0.109 OD Normal <0.400 [facility] Comment on above: Order Comment: Speci men Type: BLOOD SPECIMEN Ordering Facility: [facility] Address: [facility], [place] [address] Result Comment: Not calculated Performed By: #### P LATF4 #### [facility] CLIA [id number] [address] [place] [address] [place] Bacteria identified Cx Nom ( U)Ordered By: Ashish Lambert on 08-02-2023 Interpretation and review of laboratory results Abnormal [facility] [employer] Basic metabolic 1998 panelon 08-02-2023 Anion gap [Moles/Vol] 10 mmol/L 3 - 13 mmol/L [facility] Calcium [Mass/Vol] 8.4 mg/dL 8.4 - 10. 4 mg/dL [facility] Chloride [Moles/Vol] 106 mmol/L 98 - 10 7 mmol/L [facility] CO2 [Moles/Vol] 25 mmol/L 22 - 30 mmol/L [facility] Creatinine [Mass/Vol] 1.41 mg/dL High 0.52 - 1.04 mg/dL [facility] GFR/1.73 sq M.predicted MDRD (S/P/Bld) [Vol rate/Area] 39.2 mL/min/{1.73_m2} Low - PINF [facility] Glucose [Mass/Vol] 106 mg/dL High 70 - 100 mg/dL [facility] Interpretation and review of laboratory results Abnormal [facility] Potassium [Moles/Vol] 4.1 mmol/L 3.5 - 5.1 mmol/L [facility] [employer] Sodium [Moles/Vol] 141 mmol/L 135 - 145 mmol/L [facility] [employer] Urea nitrogen [Mass/Vol] 67 mg/dL High 7 - 17 mg/dL [facility] Anion gap [Moles/Vol] 7 mmol/L 3 - 13 mmol/L [facility] Calcium [Mass/Vol] 8.3 mg/dL Low 8.4 - 10. 4 mg/dL [facility] Chloride [Moles/Vol] 106 mmol/L 98 - 10 7 mmol/L [facility] CO2 [Moles/Vol] 27 mmol/L 22 - 30 mmol/L [facility] Creatinine [Mass/Vol] 1.46 mg/dL High 0.52 - 1.04 mg/dL [facility] GFR/1.73 sq M.predicted MDRD (S/P/Bld) [Vol rate/Area] 37.6 mL/min/{1.73_m2} Low - PINF [facility] Glucose [Mass/Vol] 152 mg/dL High 70 - 100 mg/dL [facility] Interpretation and review of laboratory results Abnormal [facility] Potassium [Moles/Vol] 4.0 mmol/L 3.5 - 5.1 mmol/L [facility] Sodium [Moles/Vol] 140 mmol/L 135 - 145 mmol/L [facility] Urea nitrogen [Mass/Vol] 66 mg/dL High 7 - 17 mg/dL [facility] Anion gap [Moles/Vol] 5 mmol/L 3 - 13 mmol/L [facility] Calcium [Mass/Vol] 8.3 mg/dL Low 8.4 - 10. 4 mg/dL [facility] Chloride [Moles/Vol] 107 mmol/L 98 - 10 7 mmol/L [facility] CO2 [Moles/Vol] 27 mmol/L 22 - 30 mmol/L [facility] Creatinine [Mass/Vol] 1.42 mg/dL High 0.52 - 1.04 mg/dL [facility] GFR/1.73 sq M.predicted MDRD (S/P/Bld) [Vol rate/Area] 38.9 mL/min/{1.73_m2} Low - PINF [facility] Glucose [Mass/Vol] 141 mg/dL High 70 - 100 mg/dL [facility] Interpretation and review of laboratory results Abnormal [facility] Potassium [Moles/Vol] 4.1 mmol/L 3.5 - 5.1 mmol/L [facility] Sodium [Moles/Vol] 139 mmol/L 135 - 145 mmol/L [facility] Urea nitrogen [Mass/Vol] 65 mg/dL High 7 - 17 mg/dL [facility] Anion gap [Moles/Vol] 8 mmol/L 3 - 13 mmol/L [facility] CBC W Auto Differential pane l (Bld)Ordered By: Abdi Hernandez on 08-02-2023 Erythrocyte distribution width (RBC) [Ratio] 14.6 % 11.5 - 15.0 % [facility] Hematocrit (Bld) [Volume fraction] 26.4 % Low 35.0 - 47.0 % [facility] Hemoglobin (Bld) [Mass/Vol] 8.7 g/dL Low 11.7 - 16.0 g/dL [facility] Interpretation and review of laboratory results Abnormal [facility] IPF 7 [facility] MCH (RBC) [Entitic mass] 34.3 pg High 26.0 - 34.0 pg [facility] MCHC (RBC) [Mass/Vol] 33.0 % 30.5 - 36.0 % [facility] MCV (RBC) [Entitic vol] 103.9 fL High 77.0 - 99.0 fL [facility] Platelet mean volume (Bld) [Entitic vol] 11.9 fL 9.0 - 12.7 fL [facility] Platelets (Bld) [#/Vol] 74 10*3/uL Low 140 - 440 10*3/uL [facility] RBC (Bld) [#/Vol] 2.54 10*6/uL Low 3.80 - 5.2 0 10*6/uL [facility] WBC (Bld) [#/Vol] 8.2 10*3/uL 3.6 - 10.7 10*3/uL [facility] CK [Catalytic activity/Vol]o n 08-02-2023 Interpretation and review of laboratory results Normal [facility] CT Abdomen WO contraston Radiology Study observation (narrative) [facility] CT Chest WO contraston 08-01 Radiology Study observation (narrative) [facility] Calcium.ionized [Moles/Vol]o n 08-02-2023 Calcium.ionized (Bld) [Moles/Vol] 4.30 mg/dL 4.30 - 5.20 mg/dL [facility] Interpretation and review of laboratory results Normal [facility] PH, IONIZED CALCIUM 7.44 7.31 - 7.46 [facility] Calcium.ionized (Bld) [Moles/Vol] 4.40 mg/dL 4.30 - 5.20 mg/dL [facility] Interpretation and review of laboratory results Normal [facility] PH, IONIZED CALCIUM 7.39 7.31 - 7.46 [facility] Calcium.ionized (Bld) [Moles/Vol] 4.40 mg/dL 4.30 - 5.20 mg/dL [facility] Interpretation and review of laboratory results Normal [facility] PH, IONIZED CALCIUM 7.41 7.31 - 7.46 [facility] Laboratory - Chemistry and C hemistry - challengeon 08-02-2023 Glucose [Mass/Vol] 247 mg/dL High 70 - 100 mg/dL [facility] Glucose [Mass/Vol] 144 mg/dL High 70 - 100 mg/dL [facility] Glucose [Mass/Vol] 112 mg/dL High 70 - 100 mg/dL [facility] Glucose [Mass/Vol] 98 mg/dL 70 - 100 mg/dL [facility] Magnesium [Mass/Vol] 2.1 mg/dL 1.6 - 2 .3 mg/dL [facility] Glucose [Mass/Vol] 129 mg/dL High 70 - 100 mg/dL [facility] Glucose [Mass/Vol] 134 mg/dL High 70 - 100 mg/dL [facility] Glucose [Mass/Vol] 136 mg/dL High 70 - 100 mg/dL [facility] Glucose [Mass/Vol] 151 mg/dL High 70 - 100 mg/dL [facility] Glucose [Mass/Vol] 149 mg/dL High 70 - 100 mg/dL [facility] Glucose [Mass/Vol] 160 mg/dL High 70 - 100 mg/dL [facility] Magnesium [Mass/Vol] 2.1 mg/dL 1.6 - 2 .3 mg/dL [facility] Glucose [Mass/Vol] 165 mg/dL High 70 - 100 mg/dL [facility] Glucose [Mass/Vol] 158 mg/dL High 70 - 100 mg/dL [facility] Glucose [Mass/Vol] 138 mg/dL High 70 - 100 mg/dL [facility] Prolactin [Mass/Vol] 28.9 ng/mL 3.0 - 3 5.0 ng/mL [facility] CK [Catalytic activity/Vol] 84 U/L 30 - 170 U/L [facility] Glucose [Mass/Vol] 127 mg/dL High 70 - 100 mg/dL [facility] Glucose [Mass/Vol] 128 mg/dL High 70 - 100 mg/dL [facility] Glucose [Mass/Vol] 139 mg/dL High 70 - 100 mg/dL [facility] Magnesium [Mass/Vol] 2.0 mg/dL 1.6 - 2 .3 mg/dL [facility] Glucose [Mass/Vol] 124 mg/dL High 70 - 100 mg/dL [facility] Glucose [Mass/Vol] 161 mg/dL High 70 - 100 mg/dL [facility] Glucose [Mass/Vol] 128 mg/dL High 70 - 100 mg/dL [facility] Base excess Calc (Bld) [Moles/Vol] 0.4 mmol/L -3.0 - 3.0 mmol/L [facility] CO2 (Bld) [Partial pressure] 38.5 mm[Hg] [facility] HCO3 (Bld) [Moles/Vol] 24.8 mmol/L 21.0 - 25.0 mmol/L [facility] Oxygen (Bld) [Partial pressure] 87.1 mm[Hg] [facility] pH (Bld) 7.417 [pH] 7.350 - 7.450 pH [facility] Glucose [Mass/Vol] 138 mg/dL High 70 - 100 mg/dL [facility] Glucose [Mass/Vol] 160 mg/dL High 70 - 100 mg/dL [facility] Glucose [Mass/Vol] 169 mg/dL High 70 - 100 mg/dL [facility] Laboratory - Coagulationon 0 08-02-2023 aPTT Coag (PPP) [Time] 47.7 s High 20.0 - 30.5 s [facility] INR Coag (PPP) [Relative time] 1.1 {INR} 0.9 - 1.1 [facility] PT Coag (Bld) [Time] 11.4 s 9.0 - 1 2.0 s [facility] Laboratory - Hematology and Cell countson 08-02-2023 Band form neutrophils (Bld) [#/Vol] 0.3 10*3/uL High NINF - 0.0 10*3/uL [facility] Band form neutrophils/100 WBC (Bld) 4 % High NINF - 0 % [facility] Lymphocytes (Bld) [#/Vol] 0.6 10*3/uL Low 1.0 - 4.3 10*3/uL [facility] Lymphocytes/100 WBC (Bld) 7 % Low 15 - 45 % [facility] Monocytes (Bld) [#/Vol] 0.1 10*3/uL 0.0 - 0.9 10*3/uL [facility] Monocytes/100 WBC (Bld) 1 % Low 5 - 13 % [facility] Neutrophils (Bld) [#/Vol] 7.5 10*3/uL 1.8 - 7.5 10*3/uL [facility] RBC morphology finding Nom (Bld) Normal [facility] Segmented neutrophils/100 WBC (Bld) 88 % High 38 - 82 % [facility] Laboratory - Microbiology an d Antimicrobial susceptibilityOrdered By: Ashish Lambert on 08-02-2023 Bacteria identified Cx Nom (U) Normal urogenital gaby present [facility] Bacteria identified Cx Nom (U) 50,000-90,000 CFU/mL Escherichia coli Abnormal [facility] No Panel Informationon 08-01 Interpretation and review of laboratory results Abnormal [facility] Interpretation and review of laboratory results Abnormal [facility] Interpretation and review of laboratory results Abnormal [facility] Interpretation and review of laboratory results Normal [facility] Interpretation and review of laboratory results Normal [facility] Interpretation and review of laboratory results Abnormal [facility] Interpretation and review of laboratory results Abnormal [facility] Interpretation and review of laboratory results Abnormal [facility] Interpretation and review of laboratory results Abnormal [facility] Interpretation and review of laboratory results Abnormal [facility] Interpretation and review of laboratory results Abnormal [facility] Interpretation and review of laboratory results Normal [facility] Interpretation and review of laboratory results Abnormal [facility] Interpretation and review of laboratory results Abnormal [facility] Interpretation and review of laboratory results Abnormal [facility] Interpretation and review of laboratory results Normal [facility] Interpretation and review of laboratory results Abnormal [facility] Interpretation and review of laboratory results Abnormal [facility] Interpretation and review of laboratory results Abnormal [facility] Interpretation and review of laboratory results Normal [facility] Interpretation and review of laboratory results Abnormal [facility] Interpretation and review of laboratory results Abnormal [facility] Bands Manual 4 [facility] Interpretation and review of laboratory results Abnormal [facility] Lymphocytes Manual 7 [facility] Monocytes Manual 1 [facility] Neutrophils Manual 87 [facility] Interpretation and review of laboratory results Abnormal [facility] Interpretation and review of laboratory results Abnormal [facility] FIO2 30 [facility] Interpretation and review of laboratory results Abnormal [facility] Interpretation and review of laboratory results Abnormal [facility] Interpretation and review of laboratory results Abnormal [facility] Phosphate [Moles/Vol]on Phosphate [Mass/Vol] 3.1 mg/dL 2.5 - 4 .5 mg/dL [facility] Phosphate [Mass/Vol] 3.1 mg/dL 2.5 - 4 .5 mg/dL [facility] Phosphate [Mass/Vol] 3.1 mg/dL 2.5 - 4 .5 mg/dL [facility] XR Chest Single viewon 08-01 [facility] EM[facility]GENC[facility] RADIOLOGY [facility] RADIOLOGY [facility] Radiology Study observation (narrative) [facility] XR Chest Single viewOrdered By: Paige Browne on 08-02-2023 [facility] aPTT Coag (Bld) [Time]on aPTT Coag (PPP) [Time] 49.7 s High 20.0 - 30.5 s [facility] Interpretation and review of laboratory results Abnormal [facility] aPTT Coag (PPP) [Time] 48.8 s High 20.0 - 30.5 s [facility] Interpretation and review of laboratory results Abnormal [facility] Laboratory - Chemistry and C hemistry - challengeon 01-11-2023 Glucose [Mass/Vol] 203 mg/dL High 70 - 100 mg/dL [facility] Glucose [Mass/Vol] 195 mg/dL High 70 - 100 mg/dL [facility] Glucose [Mass/Vol] 181 mg/dL High 70 - 100 mg/dL [facility] No Panel Informationon 01-11 Interpretation and review of laboratory results Abnormal [facility] Performed by: Bentley Mora, [address] [place], [place] [address] [address] CLIA ID: [id number] [facility] [employer] [facility] Interpretation and review of laboratory results Abnormal [facility]formed by: [facility], [address] [place] [address] CLIA ID: [id number] [facility] Interpretation and review of laboratory results Abnormal [facility] Performed by: [facility], [address] [place] [address] CLIA ID: [id number] [facility] Laboratory - Chemistry and C hemistry - challengeon 01-10-2023 Glucose [Mass/Vol] 226 mg/dL High 70 - 100 mg/dL [facility] Glucose [Mass/Vol] 165 mg/dL High 70 - 100 mg/dL [facility] Glucose [Mass/Vol] 198 mg/dL High 70 - 100 mg/dL [facility] Glucose [Mass/Vol] 178 mg/dL High 70 - 100 mg/dL [facility] [employer] No Panel Informationon 01-10 Interpretation and review of laboratory results Abnormal [facility]formed by: [facility], [address] [place] [address] CLIA ID: [id number] [facility] Interpretation and review of laboratory results Abnormal [facility] Performed by: [facility], [address] [place] [address] CLIA ID: [id number] [facility] Interpretation and review of laboratory results Abnormal [facility] Performed by: [facility], [address] [place] [address] CLIA ID: [id number] [facility] Interpretation and review of laboratory results Abnormal [facility] Performed by: [facility], [address] [place] [address] CLIA ID: [id number] [facility] Bacteria identified Cx Nom ( U)Ordered By: Theresa Solano on 01-09-2023 Interpretation and review of laboratory results Normal [facility] Laboratory - Chemistry and C hemistry - challengeon 01-09-2023 Glucose [Mass/Vol] 229 mg/dL High 70 - 100 mg/dL [facility] Glucose [Mass/Vol] 202 mg/dL High 70 - 100 mg/dL [facility] Laboratory - Microbiology an d Antimicrobial susceptibilityOrdered By: Theresa Solano on 01-09-2023 Bacteria identified Cx Nom (U) Multiple species present; probable contamination; repeat suggested [facility] No Panel Informationon 01-09 Interpretation and review of laboratory results Abnormal [facility] Performed by: [facility], [address] [facility] [address] CLIA ID: [id number] [facility] Interpretation and review of laboratory results Abnormal [facility] Performed by: [facility], [address] [facility] [address] CLIA ID: [id number] [facility] CBC W Auto Differential pane l (Bld)Ordered By: Torres Bhatia on 01-08-2023 Basophils (Bld) [#/Vol] 0.0 10*3/uL 0.0 - 0.2 10*3/uL [facility] Basophils/100 WBC (Bld) 0.5 % 0.0 - 2.0 % [facility] Eosinophils (Bld) [#/Vol] 0.2 10*3/uL 0.0 - 0.5 10*3/uL [facility] Eosinophils/100 WBC (Bld) 4.1 % 1.0 - 6.0 % [facility] Erythrocyte distribution width (RBC) [Ratio] 14.6 % High 11.5 - 14.5 % [facility] Hematocrit (Bld) [Volume fraction] 34.0 % Low 35.0 - 47.0 % [facility] Hemoglobin (Bld) [Mass/Vol] 11.5 g/dL Low 11.7 - 16.0 g/dL [facility] Interpretation and review of laboratory results Abnormal [facility] Lymphocytes (Bld) [#/Vol] 2.0 10*3/uL 1.0 - 4.3 10*3/uL [facility] Lymphocytes/100 WBC (Bld) 32.6 % 20.0 - 40.0 % [facility] MCH (RBC) [Entitic mass] 33.0 pg 26.0 - 34.0 pg [facility] MCHC (RBC) [Mass/Vol] 33.6 % 32.0 - 36.0 % [facility] MCV (RBC) [Entitic vol] 98.1 fL High 80.0 - 98.0 fL [facility] Monocytes (Bld) [#/Vol] 0.4 10*3/uL 0.0 - 0.8 10*3/uL [facility] Monocytes/100 WBC (Bld) 6.7 % 2.0 - 10.0 % [facility] [employer] Neutrophils (Bld) [#/Vol] 3.4 10*3/uL 1.8 - 7.0 10*3/uL [facility] Neutrophils/100 WBC (Bld) 56.1 % 40.0 - 80.0 % [facility] [employer] [facility] Nucleated RBC/100 WBC (Bld) [Ratio] 0.1 % [facility] [employer] Platelet mean volume (Bld) [Entitic vol] 9.3 fL 7.4 - 12.4 fL [facility] [employer] [facility] Platelets (Bld) [#/Vol] 173 10*3/uL 140 - 440 10*3/uL [facility] [employer] RBC (Bld) [#/Vol] 3.47 10*6/uL Low 3.8 - 5.20 10*6/uL [facility] WBC (Bld) [#/Vol] 6.1 10*3/uL 3.6 - 10.7 10*3/uL [facility] CT Cervical spine WO contras ton 01-08-2023 1. No acute abnormal ity identified throughout the cervical spine. 2. Cervical spondylosis particularly from C4-C5 through C6-C7 3. MRI would probably be indicated for further evaluation Report Dictated on Electronically Signed By: Ramone Beckett MD Electronically Signed Date/Time: 01/08/2023 5:23 AM [facility] RADIOLOGY SYSTEM [facility] 1950 [id number] Exam Date/Time: 01/08/2023 04:50 Procedure: CT CERVICAL [...] noncontrast study. Other: Lung apices are unremarkable. [facility] EMERGENCY [facility]PARTMENT RADIOLOGY SYSTEM Ramone Beckett MD - 01/08/2023 Patient Name: SALAZAR COYLE : 1950 Exam Date/Time: 01/08/2023 04:50 Procedure: CT CERVICAL [...] Electronically Signed Date/Time: 01/08/2023 5:23 AM EDT [facility] [employer] Radiology Study observation (narrative) [facility] [employer] [facility] CT Cervical spine WO contras tOrdered By: Ramone Beckett on 01-08-2023 [facility] [employer] [facility] Work Phone: Comprehensive metabolic 1998 panelon 01-08-2023 Albumin [Mass/Vol] 3.6 g/dL 3.5 - 5.0 g/dL [facility] [employer] [facility] ALP [Catalytic activity/Vol] 93 U/L 38 - 126 U/L [facility] [employer] [facility] ALT [Catalytic activity/Vol] 20 U/L 0 - 34 U/L [facility] [employer] [facility] Anion gap [Moles/Vol] 7 mmol/L 3 - 13 mmol/L [facility] [employer] [facility] AST [Catalytic activity/Vol] 29 U/L 15 - 46 U/L [facility] [employer] [facility] Bilirubin [Mass/Vol] 0.4 mg/dL 0.2 - 1 .3 mg/dL [facility] [employer] [facility] Calcium [Mass/Vol] 8.6 mg/dL 8.4 - 10. 4 mg/dL [facility] [employer] [facility] Chloride [Moles/Vol] 99 mmol/L 98 - 10 7 mmol/L [facility] [employer] [facility] CO2 [Moles/Vol] 32 mmol/L High 22 - 30 mmol/L [facility] Creatinine [Mass/Vol] 1.22 mg/dL High 0.52 - 1.04 mg/dL [facility] GFR/1.73 sq M.predicted MDRD (S/P/Bld) [Vol rate/Area] 46.7 mL/min/{1.73_m2} Low - PINF [facility] Comment on above: Calculation based on the Chronic Kidney Disease Epidemiology Collaboration (CKD-EPI) equation refit without adjustment for race Glucose [Mass/Vol] 243 mg/dL High 70 - 100 mg/dL [facility] Potassium [Moles/Vol] 5.2 mmol/L High 3.5 - 5.1 mmol/L [facility] [employer] [facility] Protein [Mass/Vol] 7.4 g/dL 6.3 - 8.2 g/dL [facility] Sodium [Moles/Vol] 138 mmol/L 135 - 145 mmol/L [facility] Urea nitrogen [Mass/Vol] 53 mg/dL High 7 - 17 mg/dL [facility] Laboratory - Chemistry and C hemistry - challengeon 01-08-2023 Glucose [Mass/Vol] 278 mg/dL High 70 - 100 mg/dL [facility] Glucose [Mass/Vol] 232 mg/dL High 70 - 100 mg/dL [facility] [employer] [facility] Lactate [Moles/Vol] 1.9 mmol/L 0.7 - 2. 0 mmol/L [facility] [employer] [facility] Lactate [Moles/Vol] 2.2 mmol/L High 0.7 - 2. 0 mmol/L [facility] [employer] [facility] MR Cervical spine WO contras ton 01-08-2023 [...] Electronically Signed Date/Time: 01/08/2023 4:11 PM EDT [facility] RADIOLOGY SYSTEM Patient Name: SLAAZAR SANCHEZ : 1950 [id number] Exam Date/Time: 01/08/2023 14:58 Procedure: MR CERVICAL [...] Disc contacts minimally flattening the ventral cord. [id number] spinal canal stenosis along with moderate right and mild left neuroforaminal narrowing. C7-T1: No evidence of disc bulge or protrusion. No spinal canal stenosis. No neuroforaminal narrowing. Inferior aspect of the right mastoid sinus contains a mucus retention cyst or polyp measuring 1.5 cm. [facility] EMERGENCY [facility]PARTMENT RADIOLOGY SYSTEM Orville Culver MD - 01/08/2023 Patient Name: SALAZAR COYLE : 1950 Exam Date/Time: 01/08/2023 14:58 Procedure: [...] Disc contacts minimally flattening the ventral cord. Xqtf-hp-ypsogcys spinal canal stenosis along with moderate right [...] Electronically Signed Date/Time: 01/08/2023 4:11 PM EDT [facility] Radiology Study observation (narrative) [facility] [employer] [facility] MR Cervical spine WO contras tOrdered By: Orville Culver on 01-08-2023 [facility] [employer] [facility] Work Phone: No Panel Informationon 01-08 Interpretation and review of laboratory results Abnormal [facility] Performed by: [facility], [address] [place] [address] CLIA ID: [id number] [facility] Interpretation and review of laboratory results Abnormal [facility] Performed by: [facility], [address] [place] [address] CLIA ID: [id number] [facility] Interpretation and review of laboratory results Normal [facility] Interpretation and review of laboratory results Abnormal [facility] Urinalysis complete panel (U )on 01-08-2023 Bacteria LM.HPF (Urine sed) [#/Area] Moderate Abnormal Negative /HPF [facility] Bilirubin Ql (U) Negative Negative mg/dL [facility] Clarity (U) Turbid Abnormal Clear [facility] Color (U) Colorless Lt. Yellow [facility] Epithelial cells.squamous LM.HPF (Urine sed) [#/Area] 0-2 [facility] Glucose Ql (U) Normal Normal (<70) mg/dL [facility] Hemoglobin Ql (U) >1.0 Abnormal Negative mg/dL [facility] Interpretation and review of laboratory results Abnormal [facility] Ketones (U) [Mass/Vol] Negative Negat iris mg/dL [facility] Leukocyte clumps LM.HPF (Urine sed) [#/Area] Few Abnormal Negative /HPF [facility] Leukocyte esterase Test strip Ql (U) 500 Abnormal Negative Jimenez/uL [facility] Mucus LM.HPF (Urine sed) [#/Area] Few Negative /LPF [facility] Nitrite Ql (U) Negative Negative [facility] pH (U) 7.5 [pH] 5.0 - 8.0 pH [facility] Protein (U) [Mass/Vol] 50 mg/dL Abnormal Negative [facility] RBC LM.HPF (Urine sed) [#/Area] 51-100 Abnormal [facility] Specific gravity (U) [Rel density] 1.010 1.005 - 1.030 [facility] Urobilinogen (U) [Mass/Vol] Normal Normal (0-1) mg/dL [facility] WBC LM.HPF (Urine sed) [#/Area] 26-50 Abnormal [facility] Basic metabolic 1998 panelon 08-07-2022 Anion gap [Moles/Vol] 10 mmol/L 3 - 13 mmol/L [facility] Calcium [Mass/Vol] 8.8 mg/dL 8.4 - 10. 4 mg/dL [facility] Chloride [Moles/Vol] 101 mmol/L 98 - 10 7 mmol/L [facility] CO2 [Moles/Vol] 24 mmol/L 22 - 30 mmol/L [facility] Creatinine [Mass/Vol] 1.11 mg/dL High 0.52 - 1.04 mg/dL [facility] GFR/1.73 sq M.predicted MDRD (S/P/Bld) [Vol rate/Area] 52.6 mL/min/{1.73_m2} Low - PINF [facility] Comment on above: Calculation based on the Chronic Kidney Disease Epidemiology Collaboration (CKD-EPI) equation refit without adjustment for race Glucose [Mass/Vol] 166 mg/dL High 70 - 100 mg/dL [facility] Interpretation and review of laboratory results Abnormal [facility] Potassium [Moles/Vol] 4.5 mmol/L 3.5 - 5.1 mmol/L [facility] Sodium [Moles/Vol] 135 mmol/L 135 - 145 mmol/L [facility] Urea nitrogen [Mass/Vol] 51 mg/dL High 7 - 17 mg/dL [facility] Slightly hemolyzed, interpret potassium with caution. [facility] - Chemistry and C hemistry - challengeon 08-07-2022 Glucose [Mass/Vol] 193 mg/dL High 70 - 100 mg/dL [facility] Glucose [Mass/Vol] 212 mg/dL High 70 - 100 mg/dL [facility] Laboratory - Microbiology an d Antimicrobial susceptibilityOrdered By: Katie Bray on 08-07-2022 SARS-CoV-2 (COVID-19) Ag IA.rapid Ql (Resp) Negative Negative [facility] Comment on above: A negative result do es not rule out the possibility of SARS-CoV-2 infection. NAAT-based methods should be considered for symptomatic patients presenting greater than seven days after onset of symptoms. Method: Lateral flow immunoassay. Fact sheets for healthcare providers and patients can be found at the following sites: https://www.[employer].gov/media/196118/download https://www.[employer].gov/media/162573/download No Panel Informationon 08-07 Interpretation and review of laboratory results Abnormal [facility] Performed by: [facility], [address] [place] [address] CLIA ID: [id number] [facility] Interpretation and review of laboratory results Abnormal [facility] Performed by: [facility], [address] [place] [address] CLIA ID: [id number] [facility] SARS-CoV-2 (COVID-19) Ag IA. rapid Ql (Resp)Ordered By: Katie Bray on 08-07-2022 Interpretation and review of laboratory results Normal [facility] CBC W Auto Differential pane l (Bld)Ordered By: Orville Cárdenas on 08-06-2022 Basophils (Bld) [#/Vol] 0.1 10*3/uL 0.0 - 0.2 10*3/uL [facility] Basophils/100 WBC (Bld) 0.5 % 0.0 - 2.0 % [facility] Eosinophils (Bld) [#/Vol] 0.4 10*3/uL 0.0 - 0.5 10*3/uL [facility] Eosinophils/100 WBC (Bld) 4.2 % 1.0 - 6.0 % [facility] [employer] Erythrocyte distribution width (RBC) [Ratio] 21.3 % High 11.5 - 14.5 % [facility] Comment on above: I-Anisocytosis Hematocrit (Bld) [Volume fraction] 32.0 % Low 35.0 - 47.0 % [facility] Hemoglobin (Bld) [Mass/Vol] 10.5 g/dL Low 11.7 - 16.0 g/dL [facility] Interpretation and review of laboratory results Abnormal [facility] Lymphocytes (Bld) [#/Vol] 3.4 10*3/uL 1.0 - 4.3 10*3/uL [facility] Lymphocytes/100 WBC (Bld) 34.6 % 20.0 - 40.0 % [facility] MCH (RBC) [Entitic mass] 29.6 pg 26.0 - 34.0 pg [facility] MCHC (RBC) [Mass/Vol] 32.8 % 32.0 - 36.0 % [facility] MCV (RBC) [Entitic vol] 90.0 fL 80.0 - 98.0 fL [facility] Monocytes (Bld) [#/Vol] 0.7 10*3/uL 0.0 - 0.8 10*3/uL [facility] Monocytes/100 WBC (Bld) 7.1 % 2.0 - 10.0 % [facility] Neutrophils (Bld) [#/Vol] 5.3 10*3/uL 1.8 - 7.0 10*3/uL [facility] Neutrophils/100 WBC (Bld) 53.6 % 40.0 - 80.0 % [facility] Nucleated RBC/100 WBC (Bld) [Ratio] 0.0 % [facility] [employer] Platelet mean volume (Bld) [Entitic vol] 9.7 fL 7.4 - 12.4 fL [facility] Platelets (Bld) [#/Vol] 235 10*3/uL 140 - 440 10*3/uL [facility] RBC (Bld) [#/Vol] 3.56 10*6/uL Low 3.8 - 5.20 10*6/uL [facility] WBC (Bld) [#/Vol] 9.9 10*3/uL 3.6 - 10.7 10*3/uL [facility] Comprehensive metabolic 1998 panelon 08-06-2022 Albumin [Mass/Vol] 3.6 g/dL 3.5 - 5.0 g/dL [facility] ALP [Catalytic activity/Vol] 88 U/L 38 - 126 U/L [facility] ALT [Catalytic activity/Vol] 14 U/L 0 - 34 U/L [facility] Anion gap [Moles/Vol] 8 mmol/L 3 - 13 mmol/L [facility] AST [Catalytic activity/Vol] 23 U/L 15 - 46 U/L [facility] Bilirubin [Mass/Vol] 0.4 mg/dL 0.2 - 1 .3 mg/dL [facility] Calcium [Mass/Vol] 9.0 mg/dL 8.4 - 10. 4 mg/dL [facility] Chloride [Moles/Vol] 102 mmol/L 98 - 10 7 mmol/L [facility] CO2 [Moles/Vol] 28 mmol/L 22 - 30 mmol/L [facility] Creatinine [Mass/Vol] 1.14 mg/dL High 0.52 - 1.04 mg/dL [facility] GFR/1.73 sq M.predicted MDRD (S/P/Bld) [Vol rate/Area] 50.9 mL/min/{1.73_m2} Low - PINF [facility] Comment on above: Calculation based on the Chronic Kidney Disease Epidemiology Collaboration (CKD-EPI) equation refit without adjustment for race Glucose [Mass/Vol] 142 mg/dL High 70 - 100 mg/dL [facility] Interpretation and review of laboratory results Abnormal [facility] Potassium [Moles/Vol] 5.2 mmol/L High 3.5 - 5.1 mmol/L [facility] Protein [Mass/Vol] 7.0 g/dL 6.3 - 8.2 g/dL [facility] Sodium [Moles/Vol] 137 mmol/L 135 - 145 mmol/L [facility] Urea nitrogen [Mass/Vol] 43 mg/dL High 7 - 17 mg/dL [facility] Creatinine (U) [Mass/Vol]on 08-06-2022 CREATININE, URINE 27.7 mg/dL No Range [facility] Laboratory - Chemistry and C hemistry - challengeon 08-06-2022 Glucose [Mass/Vol] 164 mg/dL High 70 - 100 mg/dL [facility] Glucose [Mass/Vol] 149 mg/dL High 70 - 100 mg/dL [facility] Urea nitrogen (U) [Mass/Vol] 287 mg/dL No Range [facility] Glucose [Mass/Vol] 201 mg/dL High 70 - 100 mg/dL [facility] Glucose [Mass/Vol] 189 mg/dL High 70 - 100 mg/dL [facility] No Panel Informationon 08-06 Interpretation and review of laboratory results Abnormal [facility] Performed by: [facility], [address] [place] [address] CLIA ID: [id number] [facility] Interpretation and review of laboratory results Abnormal [facility] Performed by: [facility], [address] [place] [address] CLIA ID: [id number] [facility] Interpretation and review of laboratory results Abnormal [facility] Performed by: [facility], [address] [place] [address] CLIA ID: [id number] [facility] Interpretation and review of laboratory results Abnormal [facility] Performed by: [facility], [address] [place] [address] CLIA ID: [id number] [facility] Urinalysis complete panel (U )on 08-06-2022 Bacteria LM.HPF (Urine sed) [#/Area] Many Abnormal Negative /HPF [facility] Bilirubin Ql (U) Negative Negative mg/dL [facility] Clarity (U) Turbid Abnormal Clear [facility] Color (U) Colorless Lt. Yellow [facility] Epithelial cells.squamous LM.HPF (Urine sed) [#/Area] 0-2 [facility] Glucose Ql (U) Normal Normal (<70) mg/dL [facility] Hemoglobin Ql (U) >1.0 Abnormal Negative mg/dL [facility] Hyaline casts Auto (Urine sed) [#/Area] 6-10 Abnormal Negative /LPF [facility] Interpretation and review of laboratory results Abnormal [facility] Ketones (U) [Mass/Vol] Negative Negat iris mg/dL [facility] Leukocyte esterase Test strip Ql (U) 500 Abnormal Negative Jimenez/uL [facility] Mucus LM.HPF (Urine sed) [#/Area] Few Negative /LPF [facility] Nitrite Ql (U) Negative Negative [facility] Non-Squamous Epithalial Cells, Urine 0-2 Abnormal Negative /HPF [facility] pH (U) 6.5 [pH] 5.0 - 8.0 pH [facility] Protein (U) [Mass/Vol] 30 mg/dL Abnormal Negative [facility] RBC LM.HPF (Urine sed) [#/Area] /[HPF] Abnormal [facility] Specific gravity (U) [Rel density] 1.010 1.005 - 1.030 [facility] Urobilinogen (U) [Mass/Vol] Normal Normal (0-1) mg/dL [facility] WBC LM.HPF (Urine sed) [#/Area] /[HPF] Abnormal [facility] Bacteria identified Cx Nom ( U)Ordered By: Jaylyn Hernandez on 08-05-2022 Interpretation and review of laboratory results Normal [facility] Laboratory - Chemistry and C hemistry - challengeon 08-05-2022 Glucose [Mass/Vol] 175 mg/dL High 70 - 100 mg/dL [facility] Glucose [Mass/Vol] 162 mg/dL High 70 - 100 mg/dL [facility] [facility] Glucose [Mass/Vol] 159 mg/dL High 70 - 100 mg/dL [facility] Glucose [Mass/Vol] 166 mg/dL High 70 - 100 mg/dL [facility] Laboratory - Microbiology an d Antimicrobial susceptibilityOrdered By: Jaylyn Hernandez on 08-05-2022 Bacteria identified Cx Nom (U) No growth (<1,000 CFU/mL) [facility] No Panel Informationon 08-05 Interpretation and review of laboratory results Abnormal [facility] Performed by: [facility], [address] [place] [address] CLIA ID: [id number] [facility] Interpretation and review of laboratory results Abnormal [facility] Performed by: [facility], [address] [place] [id number] CLIA ID: [id number] [facility] Interpretation and review of laboratory results Abnormal [facility] Performed by: [facility], [address] [place], [place] [id number] CLIA ID: [id number] [facility] Interpretation and review of laboratory results Abnormal [facility]formed [facility]: [facility], [address] [place] [address] CLIA ID: [id number] [facility] Laboratory - Chemistry and C hemistry - challengeon 08-04-2022 Glucose [Mass/Vol] 337 mg/dL High 70 - 100 mg/dL [facility] Glucose [Mass/Vol] 299 mg/dL High 70 - 100 mg/dL [facility] Glucose [Mass/Vol] 302 mg/dL High 70 - 100 mg/dL [facility] Glucose [Mass/Vol] 233 mg/dL High 70 - 100 mg/dL [facility] No Panel Informationon 08-04 Interpretation and review of laboratory results Abnormal [facility] Performed by: [facility], [address] [place] [address] CLIA ID: [id number] [facility] Interpretation and review of laboratory results Abnormal [facility] Performed by: [facility], [address] [place] [id number] CLIA ID: [id number] [facility] Interpretation and review of laboratory results Abnormal [facility] Performed by: [facility], [address] [place] [address] CLIA ID: [id number] [facility] Interpretation and review of laboratory results Abnormal [facility] Performed by: [facility], [address] [place] [address] CLIA ID: [id number] [facility] Urinalysis complete panel (U )Ordered By: Felecia Arevalo on 08-04-2022 Amorphous Crystals, Urine Moderate Abnormal Negative /HPF [facility] Bacteria LM.HPF (Urine sed) [#/Area] Loaded Abnormal Negative /HPF [facility] Bilirubin Ql (U) Negative Negative mg/dL [facility] Calcium oxalate crystals LM.HPF (Urine sed) [#/Area] Few Abnormal Negative /HPF [facility] Clarity (U) Extra Turbid Abnormal Clear [facility] Color (U) Bigfoot Abnormal Lt. Yellow [facility] Epithelial cells.squamous LM.HPF (Urine sed) [#/Area] 3-5 [facility] Glucose Ql (U) Normal Normal (<70) mg/dL [facility] Hemoglobin Ql (U) >1.0 Abnormal Negative mg/dL [facility] Hyaline casts Auto (Urine sed) [#/Area] >100 Abnormal Negative /LPF [facility] Interpretation and review of laboratory results Abnormal [facility] Ketones (U) [Mass/Vol] Negative Negat iris mg/dL [facility] Leukocyte clumps LM.HPF (Urine sed) [#/Area] Occasional Abnormal Negative /HPF [facility] Leukocyte esterase Test strip Ql (U) 500 Abnormal Negative Jimenez/uL [facility] Nitrite Ql (U) Negative Negative [facility] pH (U) 5.5 [pH] 5.0 - 8.0 pH [facility] Protein (U) [Mass/Vol] 100 mg/dL Abnormal Negative [facility] RBC LM.HPF (Urine sed) [#/Area] /[HPF] Abnormal [facility] Specific gravity (U) [Rel density] 1.009 1.005 - 1.030 [facility] Urobilinogen (U) [Mass/Vol] Normal Normal (0-1) mg/dL [facility] WBC LM.HPF (Urine sed) [#/Area] /[HPF] Abnormal [facility] Basic metabolic 1998 panelon 08-03-2022 Anion gap [Moles/Vol] 5 mmol/L 3 - 13 mmol/L [facility] Calcium [Mass/Vol] 8.9 mg/dL 8.4 - 10. 4 mg/dL [facility] Chloride [Moles/Vol] 101 mmol/L 98 - 10 7 mmol/L [facility] CO2 [Moles/Vol] 30 mmol/L 22 - 30 mmol/L [facility] Creatinine [Mass/Vol] 0.77 mg/dL 0.52 - 1.04 mg/dL [facility] GFR/1.73 sq M.predicted MDRD (S/P/Bld) [Vol rate/Area] 81.6 mL/min/{1.73_m2} - PINF [facility] Comment on above: Calculation based on the Chronic Kidney Disease Epidemiology Collaboration (CKD-EPI) equation refit without adjustment for race Glucose [Mass/Vol] 234 mg/dL High 70 - 100 mg/dL [facility] Interpretation and review of laboratory results Abnormal [facility] Potassium [Moles/Vol] 4.5 mmol/L 3.5 - 5.1 mmol/L [facility] Sodium [Moles/Vol] 136 mmol/L 135 - 145 mmol/L [facility] Urea nitrogen [Mass/Vol] 30 mg/dL High 7 - 17 mg/dL [facility] CBC W Auto Differential pane l (Bld)Ordered By: Marcus Ontiveros on 08-03-2022 Basophils (Bld) [#/Vol] 0.1 10*3/uL 0.0 - 0.2 10*3/uL [facility] Basophils/100 WBC (Bld) 0.7 % 0.0 - 2.0 % [facility] Eosinophils (Bld) [#/Vol] 0.3 10*3/uL 0.0 - 0.5 10*3/uL [facility] Eosinophils/100 WBC (Bld) 3.3 % 1.0 - 6.0 % [facility] Erythrocyte distribution width (RBC) [Ratio] 20.5 % High 11.5 - 14.5 % [facility] Comment on above: I-Anisocytosis Hematocrit (Bld) [Volume fraction] 34.1 % Low 35.0 - 47.0 % [facility] Hemoglobin (Bld) [Mass/Vol] 10.8 g/dL Low 11.7 - 16.0 g/dL [facility] Interpretation and review of laboratory results Abnormal [facility] Lymphocytes (Bld) [#/Vol] 2.5 10*3/uL 1.0 - 4.3 10*3/uL [facility] Lymphocytes/100 WBC (Bld) 28.2 % 20.0 - 40.0 % [facility] MCH (RBC) [Entitic mass] 28.5 pg 26.0 - 34.0 pg [facility] MCHC (RBC) [Mass/Vol] 31.8 % Low 32.0 - 36.0 % [facility] MCV (RBC) [Entitic vol] 89.8 fL 80.0 - 98.0 fL [facility] Monocytes (Bld) [#/Vol] 0.5 10*3/uL 0.0 - 0.8 10*3/uL [facility] Monocytes/100 WBC (Bld) 5.8 % 2.0 - 10.0 % [facility] Neutrophils (Bld) [#/Vol] 5.5 10*3/uL 1.8 - 7.0 10*3/uL [facility] Neutrophils/100 WBC (Bld) 62.0 % 40.0 - 80.0 % [facility] Nucleated RBC/100 WBC (Bld) [Ratio] 0.1 % [facility] Platelet mean volume (Bld) [Entitic vol] 9.7 fL 7.4 - 12.4 fL [facility] Platelets (Bld) [#/Vol] 259 10*3/uL 140 - 440 10*3/uL [facility] RBC (Bld) [#/Vol] 3.79 10*6/uL Low 3.8 - 5.20 10*6/uL [facility] WBC (Bld) [#/Vol] 8.8 10*3/uL 3.6 - 10.7 10*3/uL [facility] Laboratory - Chemistry and C hemistry - challengeon 08-03-2022 Glucose [Mass/Vol] mg/dL High 70 - 100 mg/dL [facility] Comment on above: Repeated Test; Glucose [Mass/Vol] 380 mg/dL High 70 - 100 mg/dL [facility] Glucose [Mass/Vol] 241 mg/dL High 70 - 100 mg/dL [facility] Glucose [Mass/Vol] 160 mg/dL High 70 - 100 mg/dL [facility] Glucose [Mass/Vol] 181 mg/dL High 70 - 100 mg/dL [facility] Glucose [Mass/Vol] 205 mg/dL High 70 - 100 mg/dL [facility] Laboratory - Coagulationon 0 08-03-2022 aPTT Coag (PPP) [Time] 26.2 s 20.0 - 30.5 s [facility] INR Coag (PPP) [Relative time] 1.0 {INR} 0.9 - 1.1 [facility] Comment on above: Recommended Anticoag ulant Therapy: [...] 10.5 s 9.0 - 1 2.0 s [facility] No Panel Informationon 08-03 Interpretation and review of laboratory results Abnormal [facility] Performed by: [facility], [address] [place] [id number] CLIA ID: [id number] [facility] Interpretation and review of laboratory results Abnormal [facility] Performed by: [facility], [address] [place] [address] CLIA ID: [id number] [facility] [employer] [facility] Interpretation and review of laboratory results Abnormal [facility] Performed by: [facility], [address] [place] [address] CLIA ID: [id number] [facility] There is no interpre tation needed for this exam. IMAGING Interpretation and review of laboratory results Abnormal [facility] Performed by: [facility], [address] [place] [address] CLIA ID: [id number] [facility] [employer] [facility] Interpretation and review of laboratory results Abnormal [facility] Performed by: [facility], [address] [place] [address] CLIA ID: [id number] [facility] [employer] [facility] Interpretation and review of laboratory results Normal [facility] [employer] Basic metabolic 1998 panelon 08-02-2022 Anion gap [Moles/Vol] 3 mmol/L 3 - 13 mmol/L [facility] Calcium [Mass/Vol] 8.7 mg/dL 8.4 - 10. 4 mg/dL [facility] [employer] Chloride [Moles/Vol] 103 mmol/L 98 - 10 7 mmol/L [facility] CO2 [Moles/Vol] 30 mmol/L 22 - 30 mmol/L [facility] Creatinine [Mass/Vol] 0.81 mg/dL 0.52 - 1.04 mg/dL [facility] GFR/1.73 sq M.predicted MDRD (S/P/Bld) [Vol rate/Area] 76.8 mL/min/{1.73_m2} - PINF [facility] Comment on above: Calculation based on the Chronic Kidney Disease Epidemiology Collaboration (CKD-EPI) equation refit without adjustment for race Glucose [Mass/Vol] 239 mg/dL High 70 - 100 mg/dL [facility] Interpretation and review of laboratory results Abnormal [facility] Potassium [Moles/Vol] 4.7 mmol/L 3.5 - 5.1 mmol/L [facility] Sodium [Moles/Vol] 136 mmol/L 135 - 145 mmol/L [facility] Urea nitrogen [Mass/Vol] 29 mg/dL High 7 - 17 mg/dL [facility] CBC W Auto Differential pane l (Bld)Ordered By: Norah Luna on 08-02-2022 Basophils (Bld) [#/Vol] 0.1 10*3/uL 0.0 - 0.2 10*3/uL [facility] Basophils/100 WBC (Bld) 0.8 % 0.0 - 2.0 % [facility] Eosinophils (Bld) [#/Vol] 0.4 10*3/uL 0.0 - 0.5 10*3/uL [facility] Eosinophils/100 WBC (Bld) 4.9 % 1.0 - 6.0 % [facility] Erythrocyte distribution width (RBC) [Ratio] 20.8 % High 11.5 - 14.5 % [facility] Comment on above: I-Anisocytosis Hematocrit (Bld) [Volume fraction] 34.1 % Low 35.0 - 47.0 % [facility] Hemoglobin (Bld) [Mass/Vol] 10.8 g/dL Low 11.7 - 16.0 g/dL [facility] Interpretation and review of laboratory results Abnormal [facility] Lymphocytes (Bld) [#/Vol] 1.9 10*3/uL 1.0 - 4.3 10*3/uL [facility] Lymphocytes/100 WBC (Bld) 23.7 % 20.0 - 40.0 % [facility] MCH (RBC) [Entitic mass] 28.4 pg 26.0 - 34.0 pg [facility] MCHC (RBC) [Mass/Vol] 31.6 % Low 32.0 - 36.0 % [facility] MCV (RBC) [Entitic vol] 89.7 fL 80.0 - 98.0 fL [facility] Monocytes (Bld) [#/Vol] 0.5 10*3/uL 0.0 - 0.8 10*3/uL [facility] Monocytes/100 WBC (Bld) 6.8 % 2.0 - 10.0 % [facility] Neutrophils (Bld) [#/Vol] 5.1 10*3/uL 1.8 - 7.0 10*3/uL [facility] Neutrophils/100 WBC (Bld) 63.8 % 40.0 - 80.0 % [facility] Nucleated RBC/100 WBC (Bld) [Ratio] 0.0 % [facility] Platelet mean volume (Bld) [Entitic vol] 9.0 fL 7.4 - 12.4 fL [facility] Platelets (Bld) [#/Vol] 241 10*3/uL 140 - 440 10*3/uL [facility] RBC (Bld) [#/Vol] 3.80 10*6/uL 3.8 - 5.20 10*6/uL [facility] WBC (Bld) [#/Vol] 8.0 10*3/uL 3.6 - 10.7 10*3/uL [facility] Laboratory - Chemistry and C hemistry - challengeon 08-02-2022 Glucose [Mass/Vol] 247 mg/dL High 70 - 100 mg/dL [facility] No Panel Informationon 08-02 Interpretation and review of laboratory results Abnormal [facility] Performed by: [facility], [address] [place] [address] CLIA ID: [id number] [facility] Bacteria identified Anaer cx Nom (Unsp spec)Ordered By: Torres Yoder on 06-16-2022 Interpretation and review of laboratory results Abnormal [facility] Bacteria identified Cx Nom ( Bld)on 06-16-2022 Interpretation and review of laboratory results Normal [facility] CBC W Auto Differential pane l (Bld)on 06-16-2022 Erythrocyte distribution width (RBC) [Ratio] 18.1 % High 11.5 - 14.5 % [facility] Hematocrit (Bld) [Volume fraction] 24.3 % Low 35.0 - 47.0 % [facility] Hemoglobin (Bld) [Mass/Vol] 7.5 g/dL Low 11.7 - 16.0 g/dL [facility] MCH (RBC) [Entitic mass] 25.4 pg Low 26.0 - 34.0 pg [facility] MCHC (RBC) [Mass/Vol] 31.1 % Low 32.0 - 36.0 % [facility] MCV (RBC) [Entitic vol] 81.5 fL 80.0 - 98.0 fL [facility] Nucleated RBC/100 WBC (Bld) [Ratio] 0.1 % [facility] Platelet mean volume (Bld) [Entitic vol] 10.4 fL 7.4 - 12.4 fL [facility] Platelets (Bld) [#/Vol] 180 10*3/uL 140 - 440 10*3/uL [facility] RBC (Bld) [#/Vol] 2.97 10*6/uL Low 3.8 - 5.20 10*6/uL [facility] WBC (Bld) [#/Vol] 9.0 10*3/uL 3.6 - 10.7 10*3/uL [facility] Calcium.ionized [Moles/Vol]o n 06-16-2022 Calcium.ionized (Bld) [Moles/Vol] 4.30 mg/dL 4.30 - 5.20 mg/dL [facility] Interpretation and review of laboratory results Normal [facility] PH, IONIZED CALCIUM 7.45 7.31 - 7.46 [facility] Comprehensive metabolic 1998 panelon 06-16-2022 Albumin [Mass/Vol] 2.5 g/dL Low 3.5 - 5.0 g/dL [facility] ALP [Catalytic activity/Vol] 65 U/L 38 - 126 U/L [facility] ALT [Catalytic activity/Vol] 9 U/L 0 - 34 U/L [facility] Anion gap [Moles/Vol] 2 mmol/L Low 3 - 13 mmol/L [facility] AST [Catalytic activity/Vol] 15 U/L 15 - 46 U/L [facility] Bilirubin [Mass/Vol] 0.5 mg/dL 0.2 - 1 .3 mg/dL [facility] Calcium [Mass/Vol] 7.8 mg/dL Low 8.4 - 10. 4 mg/dL [facility] Chloride [Moles/Vol] 112 mmol/L High 98 - 10 7 mmol/L [facility] CO2 [Moles/Vol] 28 mmol/L 22 - 30 mmol/L [facility] Creatinine [Mass/Vol] 0.85 mg/dL 0.52 - 1.04 mg/dL [facility] GFR/1.73 sq M.predicted MDRD (S/P/Bld) [Vol rate/Area] 72.4 mL/min/{1.73_m2} - PINF [facility] Glucose [Mass/Vol] 237 mg/dL High 70 - 100 mg/dL [facility] Interpretation and review of laboratory results Abnormal [facility] Potassium [Moles/Vol] 3.8 mmol/L 3.5 - 5.1 mmol/L [facility] Protein [Mass/Vol] 4.9 g/dL Low 6.3 - 8.2 g/dL [facility] Sodium [Moles/Vol] 142 mmol/L 135 - 145 mmol/L [facility] Urea nitrogen [Mass/Vol] 47 mg/dL High 7 - 17 mg/dL [facility] Laboratory - Chemistry and C hemistry - challengeon 06-16-2022 Glucose [Mass/Vol] 155 mg/dL High 70 - 100 mg/dL [facility] Glucose [Mass/Vol] 193 mg/dL High 70 - 100 mg/dL [facility] Magnesium [Mass/Vol] 1.7 mg/dL 1.6 - 2 .3 mg/dL [facility] Laboratory - Microbiology an d Antimicrobial susceptibilityOrdered By: Genny Leon on 06-16-2022 SARS-CoV-2 (COVID-19) Ag IA.rapid Ql (Resp) Negative Negative [facility] Laboratory - Microbiology an d Antimicrobial susceptibilityon 06-16-2022 Bacteria identified Cx Nom (Bld) No growth at 5 days [facility] Laboratory - Microbiology an d Antimicrobial susceptibilityOrdered By: Torres Yoder on 06-16-2022 Bacteria identified Anaer cx Nom (Unsp spec) Positive Abnormal [facility] Manual differential performe d Ql (Bld)on 06-16-2022 Anisocytosis Ql (Bld) Slight Abnormal (none) [facility] Cells Counted Total (Bld) [#] 100 {cells} [facility] Eosinophils (Bld) [#/Vol] 0.3 10*3/uL 0.0 - 0.5 10*3/uL [facility] Eosinophils Manual 3 High 0 - 1 [facility] Eosinophils/100 WBC (Bld) 3 % 1 - 6 % [facility] Leukocyte morphology finding Nom (Bld) Normal [facility] Lymphocytes (Bld) [#/Vol] 2.0 10*3/uL 1.0 - 4.3 10*3/uL [facility] Lymphocytes Manual 22 [facility] Lymphocytes/100 WBC (Bld) 22 % 20 - 40 % [facility] Monocytes (Bld) [#/Vol] 0.2 10*3/uL 0.0 - 0.8 10*3/uL [facility] Monocytes Manual 2 [facility] Monocytes/100 WBC (Bld) 2 % 2 - 10 % [facility] Myelocytes (Bld) [#/Vol] 0.2 10*3/uL High NINF - 0.0 10*3/uL [facility] Myelocytes Manual 2 [facility] Myelocytes/100 WBC (Bld) 2 % High NINF - 0 % [facility] Neutrophils (Bld) [#/Vol] 6.4 10*3/uL 1.8 - 7.0 10*3/uL [facility] Neutrophils Manual 71 [facility] Ovalocytes LM Ql (Bld) Slight Abnormal (none) [facility] Platelet morphology finding Nom (Bld) Normal [facility] Poikilocytosis LM Ql (Bld) Slight Abnormal (none) [facility] Segmented neutrophils/100 WBC (Bld) 71 % 40 - 80 % [facility] WBC corrected for nucl RBC (Bld) [#/Vol] 9.00 10*3/uL 3.60 - 10.70 10*3/uL [facility] No Panel Informationon 06-16 Interpretation and review of laboratory results Abnormal [facility] Interpretation and review of laboratory results Abnormal [facility] Interpretation and review of laboratory results Abnormal [facility] Interpretation and review of laboratory results Normal [facility] Phosphate [Moles/Vol]on 05-31 Phosphate [Mass/Vol] 3.6 mg/dL 2.5 - 4 .5 mg/dL [facility] SARS-CoV-2 (COVID-19) Ag IA. rapid Ql (Resp)Ordered By: Genny Leon on 06-16-2022 Interpretation and review of laboratory results Normal [facility] CBC W Auto Differential pane l (Bld)on 06-15-2022 Erythrocyte distribution width (RBC) [Ratio] 18.1 % High 11.5 - 14.5 % [facility] Hematocrit (Bld) [Volume fraction] 27.0 % Low 35.0 - 47.0 % [facility] Hemoglobin (Bld) [Mass/Vol] 8.7 g/dL Low 11.7 - 16.0 g/dL [facility] MCH (RBC) [Entitic mass] 26.0 pg 26.0 - 34.0 pg [facility] MCHC (RBC) [Mass/Vol] 32.2 % 32.0 - 36.0 % [facility] MCV (RBC) [Entitic vol] 80.7 fL 80.0 - 98.0 fL [facility] Nucleated RBC/100 WBC (Bld) [Ratio] 0.1 % [facility] Platelet mean volume (Bld) [Entitic vol] 10.6 fL 7.4 - 12.4 fL [facility] Platelets (Bld) [#/Vol] 138 10*3/uL Low 140 - 440 10*3/uL [facility] RBC (Bld) [#/Vol] 3.35 10*6/uL Low 3.8 - 5.20 10*6/uL [facility] WBC (Bld) [#/Vol] 9.2 10*3/uL 3.6 - 10.7 10*3/uL [facility] Calcium.ionized [Moles/Vol]o n 06-15-2022 Calcium.ionized (Bld) [Moles/Vol] 4.40 mg/dL 4.30 - 5.20 mg/dL [facility] Interpretation and review of laboratory results Normal [facility] PH, IONIZED CALCIUM 7.40 7.31 - 7.46 [facility] Comprehensive metabolic 1998 panelon 06-15-2022 Albumin [Mass/Vol] 2.7 g/dL Low 3.5 - 5.0 g/dL [facility] ALP [Catalytic activity/Vol] 61 U/L 38 - 126 U/L [facility] ALT [Catalytic activity/Vol] 10 U/L 0 - 34 U/L [facility] Anion gap [Moles/Vol] 1 mmol/L Low 3 - 13 mmol/L [facility] AST [Catalytic activity/Vol] 15 U/L 15 - 46 U/L [facility] Bilirubin [Mass/Vol] 0.6 mg/dL 0.2 - 1 .3 mg/dL [facility] Calcium [Mass/Vol] 7.8 mg/dL Low 8.4 - 10. 4 mg/dL [facility] Chloride [Moles/Vol] 113 mmol/L High 98 - 10 7 mmol/L [facility] CO2 [Moles/Vol] 30 mmol/L 22 - 30 mmol/L [facility] Creatinine [Mass/Vol] 0.96 mg/dL 0.52 - 1.04 mg/dL [facility] GFR/1.73 sq M.predicted MDRD (S/P/Bld) [Vol rate/Area] 62.6 mL/min/{1.73_m2} - PINF [facility] Glucose [Mass/Vol] 173 mg/dL High 70 - 100 mg/dL [facility] Interpretation and review of laboratory results Abnormal [facility] Potassium [Moles/Vol] 3.8 mmol/L 3.5 - 5.1 mmol/L [facility] Protein [Mass/Vol] 5.2 g/dL Low 6.3 - 8.2 g/dL [facility] Sodium [Moles/Vol] 144 mmol/L 135 - 145 mmol/L [facility] Urea nitrogen [Mass/Vol] 54 mg/dL High 7 - 17 mg/dL [facility] Laboratory - Chemistry and C hemistry - challengeon 06-15-2022 Glucose [Mass/Vol] 352 mg/dL High 70 - 100 mg/dL [facility] Glucose [Mass/Vol] 142 mg/dL High 70 - 100 mg/dL [facility] Glucose [Mass/Vol] 180 mg/dL High 70 - 100 mg/dL [facility] Glucose [Mass/Vol] 193 mg/dL High 70 - 100 mg/dL [facility] Magnesium [Mass/Vol] 1.8 mg/dL 1.6 - 2 .3 mg/dL [facility] Laboratory - Coagulationon 0 06-15-2022 PT Coag (Bld) [Time] 12.8 s High 9.0 - 1 2.0 s [facility] [employer] Manual differential performe d Ql (Bld)on 06-15-2022 Anisocytosis Ql (Bld) Slight Abnormal (none) [facility] Band form neutrophils (Bld) [#/Vol] 0.1 10*3/uL High NINF - 0.0 10*3/uL [facility] Band form neutrophils/100 WBC (Bld) 1 % High NINF - 0 % [facility] [employer] Bands Manual 1 [facility] Cells Counted Total (Bld) [#] 100 {cells} [facility] Eosinophils (Bld) [#/Vol] 0.1 10*3/uL 0.0 - 0.5 10*3/uL [facility] Eosinophils Manual 1 0 - 1 [facility] Eosinophils/100 WBC (Bld) 1 % 1 - 6 % [facility] Leukocyte morphology finding Nom (Bld) Normal [facility] Lymphocytes (Bld) [#/Vol] 2.4 10*3/uL 1.0 - 4.3 10*3/uL [facility] Lymphocytes Manual 26 [facility] Lymphocytes/100 WBC (Bld) 26 % 20 - 40 % [facility] Monocytes (Bld) [#/Vol] 0.1 10*3/uL 0.0 - 0.8 10*3/uL [facility] Monocytes Manual 1 [facility] Monocytes/100 WBC (Bld) 1 % Low 2 - 10 % [facility] Myelocytes (Bld) [#/Vol] 0.1 10*3/uL High NINF - 0.0 10*3/uL [facility] Myelocytes Manual 1 [facility] Myelocytes/100 WBC (Bld) 1 % High NINF - 0 % [facility] Neutrophils (Bld) [#/Vol] 6.5 10*3/uL 1.8 - 7.0 10*3/uL [facility] Neutrophils Manual 70 [facility] Ovalocytes LM Ql (Bld) Slight Abnormal (none) [facility] Platelet morphology finding Nom (Bld) Normal [facility] Poikilocytosis LM Ql (Bld) Slight Abnormal (none) [facility] Segmented neutrophils/100 WBC (Bld) 70 % 40 - 80 % [facility] WBC corrected for nucl RBC (Bld) [#/Vol] 9.20 10*3/uL 3.60 - 10.70 10*3/uL [facility] No Panel Informationon 06-15 Interpretation and review of laboratory results Abnormal [facility] Interpretation and review of laboratory results Abnormal [facility] RADIOLOGY SYSTEM [facility] EMERGENCY [facility]PARTMENT RADIOLOGY SYSTEM [facility] Radiology Study observation (narrative) [facility] Interpretation and review of laboratory results Abnormal [facility] Coagulase-negative Staphylococcus Detected Abnormal Not Detected [facility] Interpretation and review of laboratory results Abnormal [facility] Interpretation and review of laboratory results Abnormal [facility] Interpretation and review of laboratory results Abnormal [facility] Interpretation and review of laboratory results Normal [facility] No Panel InformationOrdered By: Ramone Ellington on 06-15-2022 [facility] [employer] Work Phone: PT Coag (Bld) [Time]on 06-15 INR Coag (PPP) [Relative time] 1.2 {INR} High 0.9 - 1.1 [facility] Interpretation and review of laboratory results Abnormal [facility] Phosphate [Moles/Vol]on 05-31 Phosphate [Mass/Vol] 3.7 mg/dL 2.5 - 4 .5 mg/dL [facility] Bacteria identified Aer cx N om (Unsp spec)Ordered By: Kriss Davis on 06-14-2022 Gram Stain Result Many Polymorphonucle ar leukocytes per low power field Abnormal [facility] Gram Stain Result Positive Abnormal [facility] Gram Stain Result Negative Abnormal [facility] Interpretation and review of laboratory results Abnormal [facility] CBC W Auto Differential pane l (Bld)on 06-14-2022 Erythrocyte distribution width (RBC) [Ratio] 18.1 % High 11.5 - 14.5 % [facility] Hematocrit (Bld) [Volume fraction] 26.0 % Low 35.0 - 47.0 % [facility] Hemoglobin (Bld) [Mass/Vol] 8.2 g/dL Low 11.7 - 16.0 g/dL [facility] MCH (RBC) [Entitic mass] 25.6 pg Low 26.0 - 34.0 pg [facility] MCHC (RBC) [Mass/Vol] 31.4 % Low 32.0 - 36.0 % [facility] MCV (RBC) [Entitic vol] 81.5 fL 80.0 - 98.0 fL [facility] Nucleated RBC/100 WBC (Bld) [Ratio] 0.0 % [facility] Platelet mean volume (Bld) [Entitic vol] 11.6 fL 7.4 - 12.4 fL [facility] Platelets (Bld) [#/Vol] 81 10*3/uL Low 140 - 440 10*3/uL [facility] RBC (Bld) [#/Vol] 3.19 10*6/uL Low 3.8 - 5.20 10*6/uL [facility] WBC (Bld) [#/Vol] 11.4 10*3/uL High 3.6 - 10.7 10*3/uL [facility] Calcium.ionized [Moles/Vol]o n 06-14-2022 Calcium.ionized (Bld) [Moles/Vol] 4.30 mg/dL 4.30 - 5.20 mg/dL [facility] Interpretation and review of laboratory results Abnormal [facility] PH, IONIZED CALCIUM 7.48 High 7.31 - 7.46 [facility] Comprehensive metabolic 1998 panelon 06-14-2022 Albumin [Mass/Vol] 2.7 g/dL Low 3.5 - 5.0 g/dL [facility] ALP [Catalytic activity/Vol] 65 U/L 38 - 126 U/L [facility] ALT [Catalytic activity/Vol] 10 U/L 0 - 34 U/L [facility] Anion gap [Moles/Vol] 3 mmol/L 3 - 13 mmol/L [facility] AST [Catalytic activity/Vol] 22 U/L 15 - 46 U/L [facility] Bilirubin [Mass/Vol] 0.7 mg/dL 0.2 - 1 .3 mg/dL [facility] Calcium [Mass/Vol] 7.9 mg/dL Low 8.4 - 10. 4 mg/dL [facility] Chloride [Moles/Vol] 114 mmol/L High 98 - 10 7 mmol/L [facility] CO2 [Moles/Vol] 27 mmol/L 22 - 30 mmol/L [facility] Creatinine [Mass/Vol] 1.05 mg/dL High 0.52 - 1.04 mg/dL [facility] GFR/1.73 sq M.predicted MDRD (S/P/Bld) [Vol rate/Area] 56.2 mL/min/{1.73_m2} Low - PINF [facility] Glucose [Mass/Vol] 131 mg/dL High 70 - 100 mg/dL [facility] Interpretation and review of laboratory results Abnormal [facility] Potassium [Moles/Vol] 3.5 mmol/L 3.5 - 5.1 mmol/L [facility] Protein [Mass/Vol] 5.2 g/dL Low 6.3 - 8.2 g/dL [facility] Sodium [Moles/Vol] 143 mmol/L 135 - 145 mmol/L [facility] Urea nitrogen [Mass/Vol] 61 mg/dL High 7 - 17 mg/dL [facility] Laboratory - Chemistry and C hemistry - challengeon 06-14-2022 Glucose [Mass/Vol] 180 mg/dL High 70 - 100 mg/dL [facility] Glucose [Mass/Vol] 196 mg/dL High 70 - 100 mg/dL [facility] Glucose [Mass/Vol] 128 mg/dL High 70 - 100 mg/dL [facility] Magnesium [Mass/Vol] 1.8 mg/dL 1.6 - 2 .3 mg/dL [facility] Glucose [Mass/Vol] 136 mg/dL High 70 - 100 mg/dL [facility] Glucose [Mass/Vol] 182 mg/dL High 70 - 100 mg/dL [facility] Laboratory - Microbiology an d Antimicrobial susceptibilityOrdered By: Kriss Davis on 06-14-2022 Bacteria identified Aer cx Nom (Unsp spec) Moderate skin gaby present [facility] Bacteria identified Aer cx Nom (Unsp spec) Many Escherichia coli Abnormal [facility] Bacteria identified Aer cx Nom (Unsp spec) Few Proteus mirabilis Abnormal [facility] Manual differential performe d Ql (Bld)on 06-14-2022 Anisocytosis Ql (Bld) Slight Abnormal (none) [facility] Cells Counted Total (Bld) [#] 100 {cells} [facility] Dacrocytes LM Ql (Bld) Slight Abnormal (none) [facility] Hypochromia Ql (Bld) Slight Abnormal (none) [facility] Leukocyte morphology finding Nom (Bld) Normal [facility] Lymphocytes (Bld) [#/Vol] 2.6 10*3/uL 1.0 - 4.3 10*3/uL [facility] Lymphocytes Manual 23 [facility] Lymphocytes/100 WBC (Bld) 23 % 20 - 40 % [facility] Monocytes (Bld) [#/Vol] 0.1 10*3/uL 0.0 - 0.8 10*3/uL [facility] Monocytes Manual 1 [facility] Monocytes/100 WBC (Bld) 1 % Low 2 - 10 % [facility] Neutrophils (Bld) [#/Vol] 8.7 10*3/uL High 1.8 - 7.0 10*3/uL [facility] Neutrophils Manual 76 [facility] Ovalocytes LM Ql (Bld) Slight Abnormal (none) [facility] Platelet morphology finding Nom (Bld) Normal [facility] Poikilocytosis LM Ql (Bld) Slight Abnormal (none) [facility] Segmented neutrophils/100 WBC (Bld) 76 % 40 - 80 % [facility] WBC corrected for nucl RBC (Bld) [#/Vol] 11.40 10*3/uL High 3.60 - 10.70 10*3/uL [facility] No Panel Informationon 06-14 Interpretation and review of laboratory results Abnormal [facility] Interpretation and review of laboratory results Abnormal [facility] Interpretation and review of laboratory results Abnormal [facility] Interpretation and review of laboratory results Abnormal [facility] Interpretation and review of laboratory results Normal [facility] Interpretation and review of laboratory results Abnormal [facility] Interpretation and review of laboratory results Abnormal [facility] Phosphate [Moles/Vol]on 05-31 Phosphate [Mass/Vol] 3.1 mg/dL 2.5 - 4 .5 mg/dL [facility] Bacteria identified Cx Nom ( Bld)on 06-13-2022 Interpretation and review of laboratory results Abnormal [facility] Bacteria identified Cx Nom ( Bld)Ordered By: Simona Baires on 06-13-2022 Interpretation and review of laboratory results Abnormal [facility] Bacteria identified Cx Nom ( U)Ordered By: Adwoa Jefferson on 06-13-2022 Interpretation and review of laboratory results Abnormal [facility] CBC W Auto Differential pane l (Bld)Ordered By: Benito Breen on 06-13-2022 Basophils (Bld) [#/Vol] 0.0 10*3/uL 0.0 - 0.2 10*3/uL [facility] Basophils/100 WBC (Bld) 0.2 % 0.0 - 2.0 % [facility] Eosinophils (Bld) [#/Vol] 0.0 10*3/uL 0.0 - 0.5 10*3/uL [facility] Eosinophils/100 WBC (Bld) 0.1 % Low 1.0 - 6.0 % [facility] Erythrocyte distribution width (RBC) [Ratio] 17.9 % High 11.5 - 14.5 % [facility] Hematocrit (Bld) [Volume fraction] 25.6 % Low 35.0 - 47.0 % [facility] Hemoglobin (Bld) [Mass/Vol] 8.1 g/dL Low 11.7 - 16.0 g/dL [facility] Lymphocytes (Bld) [#/Vol] 1.0 10*3/uL 1.0 - 4.3 10*3/uL [facility] Lymphocytes/100 WBC (Bld) 12.3 % Low 20.0 - 40.0 % [facility] MCH (RBC) [Entitic mass] 25.8 pg Low 26.0 - 34.0 pg [facility] MCHC (RBC) [Mass/Vol] 31.7 % Low 32.0 - 36.0 % [facility] MCV (RBC) [Entitic vol] 81.2 fL 80.0 - 98.0 fL [facility] Monocytes (Bld) [#/Vol] 0.4 10*3/uL 0.0 - 0.8 10*3/uL [facility] Monocytes/100 WBC (Bld) 4.4 % 2.0 - 10.0 % [facility] Neutrophils (Bld) [#/Vol] 6.7 10*3/uL 1.8 - 7.0 10*3/uL [facility] Neutrophils/100 WBC (Bld) 83.0 % High 40.0 - 80.0 % [facility] Nucleated RBC/100 WBC (Bld) [Ratio] 0.0 % [facility] Platelet mean volume (Bld) [Entitic vol] 11.7 fL 7.4 - 12.4 fL [facility] Platelets (Bld) [#/Vol] 51 10*3/uL Low 140 - 440 10*3/uL [facility] RBC (Bld) [#/Vol] 3.15 10*6/uL Low 3.8 - 5.20 10*6/uL [facility] WBC (Bld) [#/Vol] 8.1 10*3/uL 3.6 - 10.7 10*3/uL [facility] Calcium.ionized [Moles/Vol]o n 06-13-2022 Calcium.ionized (Bld) [Moles/Vol] 4.40 mg/dL 4.30 - 5.20 mg/dL [facility] Interpretation and review of laboratory results Normal [facility] PH, IONIZED CALCIUM 7.39 7.31 - 7.46 [facility] Comprehensive metabolic 1998 panelon 06-13-2022 Albumin [Mass/Vol] 2.8 g/dL Low 3.5 - 5.0 g/dL [facility] ALP [Catalytic activity/Vol] 58 U/L 38 - 126 U/L [facility] ALT [Catalytic activity/Vol] 11 U/L 0 - 34 U/L [facility] Anion gap [Moles/Vol] 3 mmol/L 3 - 13 mmol/L [facility] AST [Catalytic activity/Vol] 20 U/L 15 - 46 U/L [facility] Bilirubin [Mass/Vol] 0.8 mg/dL 0.2 - 1 .3 mg/dL [facility] Calcium [Mass/Vol] 7.9 mg/dL Low 8.4 - 10. 4 mg/dL [facility] Chloride [Moles/Vol] 111 mmol/L High 98 - 10 7 mmol/L [facility] CO2 [Moles/Vol] 27 mmol/L 22 - 30 mmol/L [facility] Creatinine [Mass/Vol] 1.41 mg/dL High 0.52 - 1.04 mg/dL [facility] GFR/1.73 sq M.predicted MDRD (S/P/Bld) [Vol rate/Area] 39.5 mL/min/{1.73_m2} Low - PINF [facility] Glucose [Mass/Vol] 240 mg/dL High 70 - 100 mg/dL [facility] Interpretation and review of laboratory results Abnormal [facility] Potassium [Moles/Vol] 4.1 mmol/L 3.5 - 5.1 mmol/L [facility] Protein [Mass/Vol] 5.3 g/dL Low 6.3 - 8.2 g/dL [facility] Sodium [Moles/Vol] 141 mmol/L 135 - 145 mmol/L [facility] Urea nitrogen [Mass/Vol] 63 mg/dL High 7 - 17 mg/dL [facility] Laboratory - Chemistry and C hemistry - challengeon 06-13-2022 Glucose [Mass/Vol] 221 mg/dL High 70 - 100 mg/dL [facility] Glucose [Mass/Vol] 239 mg/dL High 70 - 100 mg/dL [facility] Glucose [Mass/Vol] 323 mg/dL High 70 - 100 mg/dL [facility] Glucose [Mass/Vol] 262 mg/dL High 70 - 100 mg/dL [facility] Magnesium [Mass/Vol] 1.9 mg/dL 1.6 - 2 .3 mg/dL [facility] Laboratory - Microbiology an d Antimicrobial susceptibilityon 06-13-2022 Bacteria identified Cx Nom (Bld) Escherichia coli Critically abnormal [facility] Laboratory - Microbiology an d Antimicrobial susceptibilityOrdered By: Adwoa Jefferson on 06-13-2022 Bacteria identified Cx Nom (U) 50,000-90,000 CFU/mL Escherichia coli Abnormal [facility] Laboratory - Microbiology an d Antimicrobial susceptibilityOrdered By: Simona Baires on 06-13-2022 Bacteria identified Cx Nom (Bld) Staphylococcus epidermidis Critically abnormal [facility] Bacteria identified Cx Nom (Bld) Escherichia coli Critically abnormal [facility] Bacteria identified Cx Nom (Bld) Staphylococcus warneri Critically abnormal [facility] Manual differential performe d Ql (Bld)on 06-13-2022 Anisocytosis Ql (Bld) Slight Abnormal (none) [facility] Dacrocytes LM Ql (Bld) Rare Abnormal (none) [facility] Hypochromia Ql (Bld) Slight Abnormal (none) [facility] Leukocyte morphology finding Nom (Bld) Normal [facility] Ovalocytes LM Ql (Bld) Slight Abnormal (none) [facility] Platelet morphology finding Nom (Bld) Normal [facility] Poikilocytosis LM Ql (Bld) Slight Abnormal (none) [facility] No Panel Informationon 06-13 Interpretation and review of laboratory results Abnormal [facility] Interpretation and review of laboratory results Abnormal [facility] Interpretation and review of laboratory results Abnormal [facility] Interpretation and review of laboratory results Abnormal [facility] Interpretation and review of laboratory results Abnormal [facility] Interpretation and review of laboratory results Normal [facility] Phosphate [Moles/Vol]on 05-31 Phosphate [Mass/Vol] 3.1 mg/dL 2.5 - 4 .5 mg/dL [facility] aPTT Coag (Bld) [Time]on aPTT Coag (PPP) [Time] 41.3 s High 20.0 - 30.5 s [facility] Interpretation and review of laboratory results Abnormal [facility] aPTT Coag (PPP) [Time] 42.1 s High 20.0 - 30.5 s [facility] Interpretation and review of laboratory results Abnormal [facility] Bacteria identified Cx Nom ( Bld)Ordered By: Theresa Solano on 06-12-2022 Interpretation and review of laboratory results Abnormal [facility] Bacteria identified Cx Nom ( U)Ordered By: Luis Mujica on 06-12-2022 Interpretation and review of laboratory results Normal [facility] Blood type and Crossmatch pa jakob (Bld)on 06-12-2022 ABO group Nom (Bld) A [facility] Blood group antibody screen GEL Ql Negative [facility] D Ag Ql (RBC) Positive [facility] CBC W Auto Differential pane l (Bld)Ordered By: Jh Real on 06-12-2022 Basophils (Bld) [#/Vol] 0.0 10*3/uL 0.0 - 0.2 10*3/uL [facility] Basophils/100 WBC (Bld) 0.1 % 0.0 - 2.0 % [facility] Eosinophils (Bld) [#/Vol] 0.0 10*3/uL 0.0 - 0.5 10*3/uL [facility] Eosinophils/100 WBC (Bld) 0.2 % Low 1.0 - 6.0 % [facility] Erythrocyte distribution width (RBC) [Ratio] 18.0 % High 11.5 - 14.5 % [facility] Hematocrit (Bld) [Volume fraction] 21.4 % Low 35.0 - 47.0 % [facility] Hemoglobin (Bld) [Mass/Vol] 6.9 g/dL Critically low 11.7 - 16.0 g/dL [facility] Interpretation and review of laboratory results Abnormal [facility] Lymphocytes (Bld) [#/Vol] 0.7 10*3/uL Low 1.0 - 4.3 10*3/uL [facility] Lymphocytes/100 WBC (Bld) 6.5 % Low 20.0 - 40.0 % [facility] MCH (RBC) [Entitic mass] 25.4 pg Low 26.0 - 34.0 pg [facility] MCHC (RBC) [Mass/Vol] 32.1 % 32.0 - 36.0 % [facility] MCV (RBC) [Entitic vol] 79.2 fL Low 80.0 - 98.0 fL [facility] Monocytes (Bld) [#/Vol] 0.5 10*3/uL 0.0 - 0.8 10*3/uL [facility] Monocytes/100 WBC (Bld) 4.2 % 2.0 - 10.0 % [facility] Neutrophils (Bld) [#/Vol] 10.2 10*3/uL High 1.8 - 7.0 10*3/uL [facility] Neutrophils/100 WBC (Bld) 89.0 % High 40.0 - 80.0 % [facility] Nucleated RBC/100 WBC (Bld) [Ratio] 0.0 % [facility] Platelet mean volume (Bld) [Entitic vol] 11.8 fL 7.4 - 12.4 fL [facility] Platelets (Bld) [#/Vol] 46 10*3/uL Low 140 - 440 10*3/uL [facility] RBC (Bld) [#/Vol] 2.70 10*6/uL Low 3.8 - 5.20 10*6/uL [facility] WBC (Bld) [#/Vol] 11.5 10*3/uL High 3.6 - 10.7 10*3/uL [facility] Calcium.ionized [Moles/Vol]o n 06-12-2022 Calcium.ionized (Bld) [Moles/Vol] 4.20 mg/dL Low 4.30 - 5.20 mg/dL [facility] Interpretation and review of laboratory results Abnormal [facility] PH, IONIZED CALCIUM 7.51 High 7.31 - 7.46 [facility] Comprehensive metabolic 1998 panelOrdered By: Digna Hernandez on 06-12-2022 Albumin [Mass/Vol] 2.3 g/dL Low 3.5 - 5.0 g/dL [facility] ALP [Catalytic activity/Vol] 50 U/L 38 - 126 U/L [facility] ALT [Catalytic activity/Vol] 9 U/L 0 - 34 U/L [facility] Anion gap [Moles/Vol] 5 mmol/L 3 - 13 mmol/L [facility] AST [Catalytic activity/Vol] 23 U/L 15 - 46 U/L [facility] Bilirubin [Mass/Vol] 0.9 mg/dL 0.2 - 1 .3 mg/dL [facility] Calcium [Mass/Vol] 6.6 mg/dL Low 8.4 - 10. 4 mg/dL [facility] Chloride [Moles/Vol] 115 mmol/L High 98 - 10 7 mmol/L [facility] CO2 [Moles/Vol] 22 mmol/L 22 - 30 mmol/L [facility] Creatinine [Mass/Vol] 1.43 mg/dL High 0.52 - 1.04 mg/dL [facility] GFR/1.73 sq M.predicted MDRD (S/P/Bld) [Vol rate/Area] 38.8 mL/min/{1.73_m2} Low - PINF [facility] Glucose [Mass/Vol] 171 mg/dL High 70 - 100 mg/dL [facility] Interpretation and review of laboratory results Abnormal [facility] Potassium [Moles/Vol] 3.0 mmol/L Low 3.5 - 5.1 mmol/L [facility] Protein [Mass/Vol] 4.6 g/dL Low 6.3 - 8.2 g/dL [facility] Sodium [Moles/Vol] 142 mmol/L 135 - 145 mmol/L [facility] Urea nitrogen [Mass/Vol] 55 mg/dL High 7 - 17 mg/dL [facility] Hemoglobin (Bld) [Mass/Vol]O rdered By: Simona Larios on 06-12-2022 Hematocrit (Bld) [Volume fraction] 23.6 % Low 35.0 - 47.0 % [facility] Interpretation and review of laboratory results Abnormal [facility] Laboratory - Chemistry and C hemistry - challengeon 06-12-2022 Glucose [Mass/Vol] 267 mg/dL High 70 - 100 mg/dL [facility] Glucose [Mass/Vol] 247 mg/dL High 70 - 100 mg/dL [facility] Glucose [Mass/Vol] 236 mg/dL High 70 - 100 mg/dL [facility] Glucose [Mass/Vol] 231 mg/dL High 70 - 100 mg/dL [facility] Magnesium [Mass/Vol] 1.6 mg/dL 1.6 - 2 .3 mg/dL [facility] Laboratory - Hematology and Cell countsOrdered By: Simona Larios on 06-12-2022 Hemoglobin (Bld) [Mass/Vol] 7.8 g/dL Low 11.7 - 16.0 g/dL [facility] Laboratory - Microbiology an d Antimicrobial susceptibilityOrdered By: Theresa Solano on 06-12-2022 Bacteria identified Cx Nom (Bld) Escherichia coli Critically abnormal [facility] Bacteria identified Cx Nom (Bld) Proteus mirabilis Critically abnormal [facility] Laboratory - Microbiology an d Antimicrobial susceptibilityOrdered By: Luis Mujica on 06-12-2022 Bacteria identified Cx Nom (U) No growth (<1,000 CFU/mL) [facility] Magnesium [Mass/Vol]on 06-12 Interpretation and review of laboratory results Normal [facility] No Panel Informationon 06-12 Interpretation and review of laboratory results Abnormal [facility] Interpretation and review of laboratory results Abnormal [facility] Interpretation and review of laboratory results Abnormal [facility] Blood Expiration Date [id number] [facility] Crossmatch interpretation COMP [facility] Dispense Status Transfused [facility] Product Blood Type 6200 [facility] PRODUCT CODE [id number] [facility] Unit ABO A [facility] Unit Number [id number] [facility] Unit RH Positive [facility] Unit Volume 300 mL [facility] Interpretation and review of laboratory results Abnormal [facility] Phosphate [Moles/Vol]on 05-31 Interpretation and review of laboratory results Abnormal [facility] Phosphate [Mass/Vol] 2.1 mg/dL Low 2.5 - 4 .5 mg/dL [facility] aPTT Coag (Bld) [Time]on aPTT Coag (PPP) [Time] 57.6 s High 20.0 - 30.5 s [facility] Interpretation and review of laboratory results Abnormal [facility] aPTT Coag (PPP) [Time] 50.9 s High 20.0 - 30.5 s [facility] Interpretation and review of laboratory results Abnormal [facility] Bacteria identified Cx Nom ( U)Ordered By: Kavin Johnson on 06-11-2022 Interpretation and review of laboratory results Abnormal [facility] CBC W Auto Differential pane l (Bld)on 06-11-2022 Basophils (Bld) [#/Vol] 0.0 10*3/uL 0.0 - 0.2 10*3/uL [facility] Basophils/100 WBC (Bld) 0.1 % 0.0 - 2.0 % [facility] Eosinophils (Bld) [#/Vol] 0.5 10*3/uL 0.0 - 0.5 10*3/uL [facility] Eosinophils/100 WBC (Bld) 3.8 % 1.0 - 6.0 % [facility] Erythrocyte distribution width (RBC) [Ratio] 18.3 % High 11.5 - 14.5 % [facility] Hematocrit (Bld) [Volume fraction] 26.6 % Low 35.0 - 47.0 % [facility] Hemoglobin (Bld) [Mass/Vol] 8.4 g/dL Low 11.7 - 16.0 g/dL [facility] Lymphocytes (Bld) [#/Vol] 0.6 10*3/uL Low 1.0 - 4.3 10*3/uL [facility] Lymphocytes/100 WBC (Bld) 5.0 % Low 20.0 - 40.0 % [facility] MCH (RBC) [Entitic mass] 25.5 pg Low 26.0 - 34.0 pg [facility] MCHC (RBC) [Mass/Vol] 31.7 % Low 32.0 - 36.0 % [facility] MCV (RBC) [Entitic vol] 80.5 fL 80.0 - 98.0 fL [facility] Monocytes (Bld) [#/Vol] 0.4 10*3/uL 0.0 - 0.8 10*3/uL [facility] Monocytes/100 WBC (Bld) 3.1 % 2.0 - 10.0 % [facility] Neutrophils (Bld) [#/Vol] 11.1 10*3/uL High 1.8 - 7.0 10*3/uL [facility] Neutrophils/100 WBC (Bld) 88.0 % High 40.0 - 80.0 % [facility] Nucleated RBC/100 WBC (Bld) [Ratio] 0.0 % [facility] Platelet mean volume (Bld) [Entitic vol] 11.6 fL 7.4 - 12.4 fL [facility] Platelets (Bld) [#/Vol] 43 10*3/uL Low 140 - 440 10*3/uL [facility] RBC (Bld) [#/Vol] 3.30 10*6/uL Low 3.8 - 5.20 10*6/uL [facility] WBC (Bld) [#/Vol] 12.7 10*3/uL High 3.6 - 10.7 10*3/uL [facility] Calcium.ionized [Moles/Vol]o n 06-11-2022 Calcium.ionized (Bld) [Moles/Vol] 4.20 mg/dL Low 4.30 - 5.20 mg/dL [facility] Interpretation and review of laboratory results Abnormal [facility] PH, IONIZED CALCIUM 7.32 7.31 - 7.46 [facility] Comprehensive metabolic 1998 panelon 06-11-2022 Albumin [Mass/Vol] 3.5 g/dL 3.5 - 5.0 g/dL [facility] ALP [Catalytic activity/Vol] 80 U/L 38 - 126 U/L [facility] ALT [Catalytic activity/Vol] 11 U/L 0 - 34 U/L [facility] Anion gap [Moles/Vol] 9 mmol/L 3 - 13 mmol/L [facility] AST [Catalytic activity/Vol] 36 U/L 15 - 46 U/L [facility] Bilirubin [Mass/Vol] 1.5 mg/dL High 0.2 - 1 .3 mg/dL [facility] Calcium [Mass/Vol] 8.0 mg/dL Low 8.4 - 10. 4 mg/dL [facility] Chloride [Moles/Vol] 104 mmol/L 98 - 10 7 mmol/L [facility] CO2 [Moles/Vol] 25 mmol/L 22 - 30 mmol/L [facility] Creatinine [Mass/Vol] 2.29 mg/dL High 0.52 - 1.04 mg/dL [facility] GFR/1.73 sq M.predicted MDRD (S/P/Bld) [Vol rate/Area] 22.1 mL/min/{1.73_m2} Low - PINF [facility] Glucose [Mass/Vol] 190 mg/dL High 70 - 100 mg/dL [facility] Interpretation and review of laboratory results Abnormal [facility] Potassium [Moles/Vol] 3.6 mmol/L 3.5 - 5.1 mmol/L [facility] Protein [Mass/Vol] 6.2 g/dL Low 6.3 - 8.2 g/dL [facility] Sodium [Moles/Vol] 139 mmol/L 135 - 145 mmol/L [facility] Urea nitrogen [Mass/Vol] 57 mg/dL High 7 - 17 mg/dL [facility] - Chemistry and C hemistry - challengeon 06-11-2022 Glucose [Mass/Vol] 237 mg/dL High 70 - 100 mg/dL [facility] Glucose [Mass/Vol] 187 mg/dL High 70 - 100 mg/dL [facility] Glucose [Mass/Vol] 165 mg/dL High 70 - 100 mg/dL [facility] Lactate [Moles/Vol] 1.6 mmol/L 0.7 - 2. 0 mmol/L [facility] Procalcitonin [Mass/Vol] 76.84 ng/mL High 0.00 - 0.09 ng/mL [facility] Glucose [Mass/Vol] 175 mg/dL High 70 - 100 mg/dL [facility] Lactate [Moles/Vol] 2.2 mmol/L Critically high 0.7 - 2.0 mmol/L [facility] Magnesium [Mass/Vol] 1.7 mg/dL 1.6 - 2 .3 mg/dL [facility] Laboratory - Microbiology an d Antimicrobial susceptibilityOrdered By: Kavin Johnson on 06-11-2022 Bacteria identified Cx Nom (U) Normal urogenital gaby present [facility] Bacteria identified Cx Nom (U) >100,000 CFU/mL Escherichia coli Abnormal [facility] Manual differential performe d Ql (Bld)on 06-11-2022 Anisocytosis Ql (Bld) Slight Abnormal (none) [facility] Dacrocytes LM Ql (Bld) Slight Abnormal (none) [facility] Leukocyte morphology finding Nom (Bld) Normal [facility] Ovalocytes LM Ql (Bld) Slight Abnormal (none) [facility] Platelet morphology finding Nom (Bld) Normal [facility] Poikilocytosis LM Ql (Bld) Slight Abnormal (none) [facility] Schistocytes LM Ql (Bld) Slight Abnormal (none) [facility] No Panel Informationon 06-11 Interpretation and review of laboratory results Abnormal [facility] Interpretation and review of laboratory results Abnormal [facility] Interpretation and review of laboratory results Abnormal [facility] Interpretation and review of laboratory results Normal [facility] Interpretation and review of laboratory results Abnormal [facility] Interpretation and review of laboratory results Abnormal [facility] Interpretation and review of laboratory results Abnormal [facility] Interpretation and review of laboratory results Normal [facility] Phosphate [Moles/Vol]on 05-31 Phosphate [Mass/Vol] 3.1 mg/dL 2.5 - 4 .5 mg/dL [facility] Procalcitonin [Mass/Vol]on 06-11-2022 Interpretation and review of laboratory results Abnormal [facility] aPTT Coag (Bld) [Time]on aPTT Coag (PPP) [Time] 52.8 s High 20.0 - 30.5 s [facility] Interpretation and review of laboratory results Abnormal [facility] aPTT Coag (PPP) [Time] 63.8 s High 20.0 - 30.5 s [facility] Interpretation and review of laboratory results Abnormal [facility] CBC W Auto Differential pane l (Bld)Ordered By: Torres Bhatia on 06-10-2022 Erythrocyte distribution width (RBC) [Ratio] 18.3 % High 11.5 - 14.5 % [facility] Hematocrit (Bld) [Volume fraction] 28.7 % Low 35.0 - 47.0 % [facility] Hemoglobin (Bld) [Mass/Vol] 8.8 g/dL Low 11.7 - 16.0 g/dL [facility] MCH (RBC) [Entitic mass] 25.2 pg Low 26.0 - 34.0 pg [facility] MCHC (RBC) [Mass/Vol] 30.8 % Low 32.0 - 36.0 % [facility] MCV (RBC) [Entitic vol] 81.9 fL 80.0 - 98.0 fL [facility] Nucleated RBC/100 WBC (Bld) [Ratio] 0.0 % [facility] [employer] Platelet mean volume (Bld) [Entitic vol] 11.2 fL 7.4 - 12.4 fL [facility] [employer] Platelets (Bld) [#/Vol] 67 10*3/uL Low 140 - 440 10*3/uL [facility] [employer] RBC (Bld) [#/Vol] 3.50 10*6/uL Low 3.8 - 5.20 10*6/uL [facility] WBC (Bld) [#/Vol] 11.4 10*3/uL High 3.6 - 10.7 10*3/uL [facility] CT Abdomen WO contraston [facility] RADIOLOGY [facility] RADIOLOGY [facility] Radiology Study observation (narrative) [facility] CT Abdomen WO contrastOrdere d By: Carlos Martinez on 06-10-2022 [facility] [employer] Work Phone: Comprehensive metabolic 1998 panelon 06-10-2022 Albumin [Mass/Vol] 3.6 g/dL 3.5 - 5.0 g/dL [facility] [employer] ALP [Catalytic activity/Vol] 77 U/L 38 - 126 U/L [facility] [employer] ALT [Catalytic activity/Vol] 12 U/L 0 - 34 U/L [facility] [employer] Anion gap [Moles/Vol] 9 mmol/L 3 - 13 mmol/L [facility] [employer] AST [Catalytic activity/Vol] 35 U/L 15 - 46 U/L [facility] [employer] Bilirubin [Mass/Vol] 1.6 mg/dL High 0.2 - 1 .3 mg/dL [facility] [employer] Calcium [Mass/Vol] 8.0 mg/dL Low 8.4 - 10. 4 mg/dL [facility] [employer] Chloride [Moles/Vol] 107 mmol/L 98 - 10 7 mmol/L [facility] [employer] CO2 [Moles/Vol] 24 mmol/L 22 - 30 mmol/L [facility] [employer] Creatinine [Mass/Vol] 2.40 mg/dL High 0.52 - 1.04 mg/dL [facility] GFR/1.73 sq M.predicted MDRD (S/P/Bld) [Vol rate/Area] 20.8 mL/min/{1.73_m2} Low - PINF [facility] [employer] Glucose [Mass/Vol] 216 mg/dL High 70 - 100 mg/dL [facility] Interpretation and review of laboratory results Abnormal [facility] Potassium [Moles/Vol] 3.9 mmol/L 3.5 - 5.1 mmol/L [facility] Protein [Mass/Vol] 6.0 g/dL Low 6.3 - 8.2 g/dL [facility] Sodium [Moles/Vol] 140 mmol/L 135 - 145 mmol/L [facility] Urea nitrogen [Mass/Vol] 57 mg/dL High 7 - 17 mg/dL [facility] Albumin [Mass/Vol] 3.6 g/dL 3.5 - 5.0 g/dL [facility] ALP [Catalytic activity/Vol] 80 U/L 38 - 126 U/L [facility] ALT [Catalytic activity/Vol] 12 U/L 0 - 34 U/L [facility] Anion gap [Moles/Vol] 14 mmol/L High 3 - 13 mmol/L [facility] AST [Catalytic activity/Vol] 27 U/L 15 - 46 U/L [facility] Bilirubin [Mass/Vol] 1.4 mg/dL High 0.2 - 1 .3 mg/dL [facility] Calcium [Mass/Vol] 8.2 mg/dL Low 8.4 - 10. 4 mg/dL [facility] Chloride [Moles/Vol] 109 mmol/L High 98 - 10 7 mmol/L [facility] CO2 [Moles/Vol] 18 mmol/L Low 22 - 30 mmol/L [facility] Creatinine [Mass/Vol] 2.57 mg/dL High 0.52 - 1.04 mg/dL [facility] GFR/1.73 sq M.predicted MDRD (S/P/Bld) [Vol rate/Area] 19.2 mL/min/{1.73_m2} Low - PINF [facility] Glucose [Mass/Vol] 209 mg/dL High 70 - 100 mg/dL [facility] Interpretation and review of laboratory results Abnormal [facility] Potassium [Moles/Vol] 3.8 mmol/L 3.5 - 5.1 mmol/L [facility] Protein [Mass/Vol] 6.0 g/dL Low 6.3 - 8.2 g/dL [facility] Sodium [Moles/Vol] 142 mmol/L 135 - 145 mmol/L [facility] Urea nitrogen [Mass/Vol] 52 mg/dL High 7 - 17 mg/dL [facility] Comprehensive metabolic 1998 panelOrdered By: Darrick Gonzalez on 06-10-2022 Albumin [Mass/Vol] 2.9 g/dL Low 3.5 - 5.0 g/dL [facility] ALP [Catalytic activity/Vol] 150 U/L High 38 - 126 U/L [facility] ALT [Catalytic activity/Vol] 11 U/L 0 - 34 U/L [facility] Anion gap [Moles/Vol] 12 mmol/L 3 - 13 mmol/L [facility] AST [Catalytic activity/Vol] 24 U/L 15 - 46 U/L [facility] Bilirubin [Mass/Vol] 1.3 mg/dL 0.2 - 1 .3 mg/dL [facility] Calcium [Mass/Vol] 8.2 mg/dL Low 8.4 - 10. 4 mg/dL [facility] Chloride [Moles/Vol] 109 mmol/L High 98 - 10 7 mmol/L [facility] CO2 [Moles/Vol] 19 mmol/L Low 22 - 30 mmol/L [facility] Creatinine [Mass/Vol] 2.40 mg/dL High 0.52 - 1.04 mg/dL [facility] GFR/1.73 sq M.predicted MDRD (S/P/Bld) [Vol rate/Area] 20.8 mL/min/{1.73_m2} Low - PINF [facility] Glucose [Mass/Vol] 219 mg/dL High 70 - 100 mg/dL [facility] Interpretation and review of laboratory results Abnormal [facility] Potassium [Moles/Vol] 3.5 mmol/L 3.5 - 5.1 mmol/L [facility] Protein [Mass/Vol] 5.6 g/dL Low 6.3 - 8.2 g/dL [facility] Sodium [Moles/Vol] 140 mmol/L 135 - 145 mmol/L [facility] Urea nitrogen [Mass/Vol] 49 mg/dL High 7 - 17 mg/dL [facility] - Chemistry and C hemistry - challengeon 06-10-2022 Glucose [Mass/Vol] 226 mg/dL High 70 - 100 mg/dL [facility] Lactate [Moles/Vol] 2.1 mmol/L Critically high 0.7 - 2.0 mmol/L [facility] Lactate [Moles/Vol] 1.3 mmol/L 0.7 - 2. 0 mmol/L [facility] Glucose [Mass/Vol] 224 mg/dL High 70 - 100 mg/dL [facility] Sodium (24H U) [Mass/Vol] 21 mmol/L Low 30 - 90 mmol/L [facility] Glucose [Mass/Vol] 198 mg/dL High 70 - 100 mg/dL [facility] Glucose [Mass/Vol] 216 mg/dL High 70 - 100 mg/dL [facility] Lactate [Moles/Vol] 4.7 mmol/L Critically high 0.7 - 2.0 mmol/L [facility] Glucose [Mass/Vol] 218 mg/dL High 70 - 100 mg/dL [facility] Magnesium [Mass/Vol] 1.6 mg/dL 1.6 - 2 .3 mg/dL [facility] Laboratory - Chemistry and C hemistry - challengeOrdered By: Kristi Jacobo on 06-10-2022 Lactate [Moles/Vol] 2.6 mmol/L Critically high 0.7 - 2.0 mmol/L [facility] Laboratory - Drug toxicology on 06-10-2022 Vancomycin [Mass/Vol] 5.9 ug/mL Low 15.0 - 20.0 ug/mL [facility] Laboratory - Urinalysison Protein (U) [Mass/Vol] 271 mg/dL High 0 - 1 2 mg/dL [facility] Manual differential performe d Ql (Bld)on 06-10-2022 Anisocytosis Ql (Bld) Slight Abnormal (none) [facility] Band form neutrophils (Bld) [#/Vol] 0.9 10*3/uL High NINF - 0.0 10*3/uL [facility] Band form neutrophils/100 WBC (Bld) 8 % High NINF - 0 % [facility] Bands Manual 8 [facility] [place] cells LM Ql (Bld) Slight Abnormal (none) [facility] Cells Counted Total (Bld) [#] 100 {cells} [facility] Dacrocytes LM Ql (Bld) Rare Abnormal (none) [facility] Dohle body LM Ql (Bld) Present Abnormal (none) [facility] Lymphocytes (Bld) [#/Vol] 0.3 10*3/uL Low 1.0 - 4.3 10*3/uL [facility] Lymphocytes Manual 3 [facility] Lymphocytes/100 WBC (Bld) 3 % Low 20 - 40 % [facility] Metamyelocytes (Bld) [#/Vol] 0.2 10*3/uL High NINF - 0.0 10*3/uL [facility] Metamyelocytes Manual 2 [facility] Metamyelocytes/100 WBC (Bld) 2 % High NINF - 0 % [facility] Neutrophils (Bld) [#/Vol] 10.8 10*3/uL High 1.8 - 7.0 10*3/uL [facility] Neutrophils Manual 87 [facility] Neutrophils.vacuolated LM Ql (Bld) Present Abnormal (none) [facility] Ovalocytes LM Ql (Bld) Slight Abnormal (none) [facility] Platelet morphology finding Nom (Bld) Normal [facility] Poikilocytosis LM Ql (Bld) Slight Abnormal (none) [facility] Segmented neutrophils/100 WBC (Bld) 87 % High 40 - 80 % [facility] WBC corrected for nucl RBC (Bld) [#/Vol] 11.40 10*3/uL High 3.60 - 10.70 10*3/uL [facility] Microalbumin/Creatinine rati o panel (U)on 06-10-2022 Albumin DL <= 20 mg/L (U) [Mass/Vol] 946.4 mg/L High 0.0 - 29.9 mg/L [facility] Albumin/Creatinine DL <= 20 mg/L (U) [Mass ratio] 1338.6 mg/g High 0.0 - 29.9 mg/g [facility] CREATININE, URINE 70.7 mg/dL No Range [facility] Interpretation and review of laboratory results Abnormal [facility] No Panel Informationon 06-10 Interpretation and review of laboratory results Abnormal [facility] Interpretation and review of laboratory results Abnormal [facility] Interpretation and review of laboratory results Normal [facility] Interpretation and review of laboratory results Abnormal [facility] Interpretation and review of laboratory results Abnormal [facility] Interpretation and review of laboratory results Abnormal [facility] Interpretation and review of laboratory results Abnormal [facility] Interpretation and review of laboratory results Abnormal [facility] Interpretation and review of laboratory results Abnormal [facility] Interpretation and review of laboratory results Abnormal [facility] Interpretation and review of laboratory results Abnormal [facility] Interpretation and review of laboratory results Normal [facility] No Panel InformationOrdered By: Kristi Jacobo on 06-10-2022 Interpretation and review of laboratory results Abnormal [facility] No Panel InformationOrdered By: Torres Bhatia on 06-10-2022 Interpretation and review of laboratory results Abnormal [facility] No Panel InformationOrdered By: Sushil Pena on 06-10-2022 CTX-M (ESBL gene) Detected Abnormal Not Detected [facility] Escherichia coli Detected Abnormal Not Detected [facility] Interpretation and review of laboratory results Abnormal [facility] mecA/C (MRSE/MRSL) Detected Abnormal Not Detected [facility] Staphylococcus epidermidis Detected Abnormal Not Detected [facility] Phosphate [Moles/Vol]on 05-31 Phosphate [Mass/Vol] 2.9 mg/dL 2.5 - 4 .5 mg/dL [facility] US Heart Transthoracicon Ao Root Index 1.28 cm/m2 [facility] Aortic Root 3.0 cm [facility] Ascending Aorta 3.1 cm [facility] Ascending Aorta Index 1.32 cm/m2 [facility] AV Area by Peak Velocity 2.1 cm2 [facility] AV Area by VTI 2.3 cm2 [facility] AV Mean Gradient 5 mmHg [facility] AV Mean Velocity 1.0 m/s [facility] AV Peak Gradient 9 mmHg [facility] AV Peak Velocity 1.5 m/s [facility] AV Velocity Ratio 0.67 [facility] AV VTI 29.3 cm [facility] ROSE/BSA Peak Velocity 0.9 cm2/m2 [facility] ROSE/BSA VTI 1.0 cm2/m2 [facility] E/E' Lateral 17.88 [facility] E/E' Ratio (Averaged) 19.15 [facility] E/E' Septal 20.43 [facility] EF BP 60 % 55 - 100 % [facility] Est. RA Pressure 8 mmHg [facility] Fractional Shortening 2D 30 % 28 - 44 % [facility] Interpretation and review of laboratory results Abnormal [facility] IVSd 1.4 cm Abnormal 0.6 - 0.9 cm [facility] [place] Diameter 3.5 cm [facility] Size Index 1.50 cm/m2 [facility] Volume 2C 105 mL Abnormal 22 - 52 mL [facility] Volume 4C 113 mL Abnormal 22 - 52 mL [facility] Volume A/L 133 mL [facility] [place] Volume BP 122 mL Abnormal 22 - 52 mL [facility] [place] Volume Index 2C 45 mL/m2 Abnormal 16 - 34 mL/m2 [facility] [place] Volume Index 4C 48 mL/m2 Abnormal 16 - 34 mL/m2 [facility] [place] Volume Index A/L 57 mL/m2 16 - 34 mL/m2 [facility] [place] Volume Index BP 52 ml/m2 Abnormal 16 - 34 ml/m2 [facility] [place]/AO Root Ratio 1.17 [facility] [place] E' Lateral Velocity 8 cm/s [facility] [place] E' Septal Velocity 7 cm/s [facility] [place] EDV A2C 81 mL [facility] [place] EDV A4C 92 mL [facility] [place] EDV BP 90 mL 56 - 104 mL [facility] EDV Index A2C 35 mL/m2 [facility] EDV Index A4C 39 mL/m2 [facility] EDV Index BP 38 mL/m2 [facility] [place] Ejection Fraction A2C 60 % [facility] [place] Ejection Fraction A4C 57 % [facility] [place] ESV A2C 33 mL [facility] [place] ESV A4C 40 mL [facility] ESV BP 36 mL 19 - 49 mL [facility] ESV Index A2C 14 mL/m2 [facility] ESV Index A4C 17 mL/m2 [facility] ESV Index BP 15 mL/m2 [facility] [place] Mass 2D 230.2 g Abnormal 67 - 162 g [facility] [place] Mass 2D Index 98.4 g/m2 Abnormal 43 - 95 g/m2 [facility] [place] RWT Ratio 0.52 [facility] LVIDd 4.6 cm 3.9 - 5.3 cm [facility] LVIDd Index 1.97 cm/m2 [facility] LVIDs 3.2 cm [facility] LVIDs Index 1.37 cm/m2 [facility] LVOT Area 3.1 cm2 [facility] LVOT Cardiac Output 5.7 liter/mi nut e [facility] LVOT Diameter 2.0 cm [facility] LVOT Mean Gradient 2 mmHg [facility] LVOT Peak Gradient 4 mmHg [facility] LVOT Peak Velocity 1.0 m/s [facility] LVOT Stroke Volume Index 29.1 mL/m2 [facility] LVOT SV 68.1 ml [facility] LVOT VTI 21.7 cm [facility] LVOT:AV VTI Index 0.74 [facility] LVPWd 1.2 cm Abnormal 0.6 - 0.9 cm [facility] MV A Velocity 1.05 m/s [facility] MV E Velocity 1.43 m/s [facility] MV E Wave Deceleration Time 168.5 ms [facility] MV E/A 1.36 [facility] MV Mean Gradient 4 mmHg [facility] MV Peak Gradient 8 mmHg [facility] PV Max Velocity 1.1 m/s [facility] PV Mean Gradient 2 mmHg [facility] PV Mean Velocity 0.7 m/s [facility] PV Peak Gradient 4 mmHg [facility] PV VTI 21.9 cm [facility] RA Area 4C 50.7 mL [facility] RA Area 4C 48.9 mL [facility] RV Basal Dimension 3.1 cm [facility] RV Free Wall Peak S' 12 cm/s [facility] RV Mid Dimension 2.8 cm [facility] RVSP 46 mmHg [facility] TAPSE 2.0 cm 1.7 cm [facility] TR Max Velocity 3.10 m/s [facility] CV CPACS [facility] Urinalysis complete panel (U )on 06-10-2022 Bacteria LM.HPF (Urine sed) [#/Area] Few Abnormal Negative /HPF [facility] Bilirubin Ql (U) Negative Negative mg/dL [facility] Clarity (U) Turbid Abnormal Clear [facility] Color (U) Yellow Lt. Yellow [facility] Epithelial cells.squamous LM.HPF (Urine sed) [#/Area] 0-2 [facility] Glucose Ql (U) Normal Normal (<70) mg/dL [facility] Hemoglobin Ql (U) >1.0 Abnormal Negative mg/dL [facility] Hyaline casts Auto (Urine sed) [#/Area] 3-5 Abnormal Negative /LPF [facility] Interpretation and review of laboratory results Abnormal [facility] Ketones (U) [Mass/Vol] Negative Negat iris mg/dL [facility] Leukocyte esterase Test strip Ql (U) 250 Abnormal Negative Jimenez/uL [facility] Nitrite Ql (U) Negative Negative [facility] Non-Squamous Epithalial Cells, Urine 0-2 Abnormal Negative /HPF [facility] Center pH (U) 5.5 [pH] 5.0 - 8.0 pH [facility] Protein (U) [Mass/Vol] 100 mg/dL Abnormal Negative [facility] RBC LM.HPF (Urine sed) [#/Area] 26-50 Abnormal [facility] Specific gravity (U) [Rel density] 1.016 1.005 - 1.030 [facility] Urobilinogen (U) [Mass/Vol] Normal Normal (0-1) mg/dL [facility] WBC LM.HPF (Urine sed) [#/Area] 3-5 [facility] XR Chest Single viewon 06-10 [facility] EMERGENCY DEPARTMENT RADIOLOGY [facility] RADIOLOGY [facility] Radiology Study observation (narrative) [facility] XR Chest Single viewOrdered By: Bashir Barnes on 06-10-2022 [facility] Work Phone: aPTT Coag (Bld) [Time]on aPTT Coag (PPP) [Time] 54.2 s High 20.0 - 30.5 s [facility] Interpretation and review of laboratory results Abnormal [facility] aPTT Coag (PPP) [Time] 53.0 s High 20.0 - 30.5 s [facility] Interpretation and review of laboratory results Abnormal [facility] aPTT Coag (PPP) [Time] 59.5 s High 20.0 - 30.5 s [facility] Interpretation and review of laboratory results Abnormal [facility] aPTT Coag (PPP) [Time] 46.1 s High 20.0 - 30.5 s [facility] Interpretation and review of laboratory results Abnormal [facility] aPTT Coag (Bld) [Time]Ordere d By: Ally Olmstead on 06-10-2022 aPTT Coag (PPP) [Time] 130.6 s Critically high 20 .0 - 30.5 s [facility] Interpretation and review of laboratory results Abnormal [facility] Basic metabolic 1998 panelon 06-09-2022 Anion gap [Moles/Vol] 5 mmol/L 3 - 13 mmol/L [facility] Calcium [Mass/Vol] 8.4 mg/dL 8.4 - 10. 4 mg/dL [facility] [employer] Chloride [Moles/Vol] 109 mmol/L High 98 - 10 7 mmol/L [facility] [employer] [facility] CO2 [Moles/Vol] 25 mmol/L 22 - 30 mmol/L [facility] Creatinine [Mass/Vol] 2.27 mg/dL High 0.52 - 1.04 mg/dL [facility] GFR/1.73 sq M.predicted MDRD (S/P/Bld) [Vol rate/Area] 22.3 mL/min/{1.73_m2} Low - PINF [facility] Glucose [Mass/Vol] 221 mg/dL High 70 - 100 mg/dL [facility] [employer] [facility] Potassium [Moles/Vol] 4.3 mmol/L 3.5 - 5.1 mmol/L [facility] [employer] [facility] Sodium [Moles/Vol] 138 mmol/L 135 - 145 mmol/L [facility] Urea nitrogen [Mass/Vol] 49 mg/dL High 7 - 17 mg/dL [facility] CBC W Auto Differential pane l (Bld)Ordered By: Kendall Soliz on 06-09-2022 Erythrocyte distribution width (RBC) [Ratio] 18.4 % High 11.5 - 14.5 % [facility] Hematocrit (Bld) [Volume fraction] 23.8 % Low 35.0 - 47.0 % [facility] Hemoglobin (Bld) [Mass/Vol] 7.6 g/dL Low 11.7 - 16.0 g/dL [facility] MCH (RBC) [Entitic mass] 25.8 pg Low 26.0 - 34.0 pg [facility] MCHC (RBC) [Mass/Vol] 31.9 % Low 32.0 - 36.0 % [facility] MCV (RBC) [Entitic vol] 80.8 fL 80.0 - 98.0 fL [facility] Nucleated RBC/100 WBC (Bld) [Ratio] 0.0 % [facility] Platelet mean volume (Bld) [Entitic vol] 10.3 fL 7.4 - 12.4 fL [facility] Platelets (Bld) [#/Vol] 107 10*3/uL Low 140 - 440 10*3/uL [facility] RBC (Bld) [#/Vol] 2.95 10*6/uL Low 3.8 - 5.20 10*6/uL [facility] WBC (Bld) [#/Vol] 9.3 10*3/uL 3.6 - 10.7 10*3/uL [facility] CBC W Auto Differential pane l (Bld)Ordered By: Mickey Pickett on 06-09-2022 Basophils (Bld) [#/Vol] 0.0 10*3/uL 0.0 - 0.2 10*3/uL [facility] Basophils/100 WBC (Bld) 0.2 % 0.0 - 2.0 % [facility] Eosinophils (Bld) [#/Vol] 0.0 10*3/uL 0.0 - 0.5 10*3/uL [facility] Eosinophils/100 WBC (Bld) 0.1 % Low 1.0 - 6.0 % [facility] [employer] [facility] Erythrocyte distribution width (RBC) [Ratio] 18.4 % High 11.5 - 14.5 % [facility] [employer] [facility] Hematocrit (Bld) [Volume fraction] 30.1 % Low 35.0 - 47.0 % [facility] [employer] [facility] Hemoglobin (Bld) [Mass/Vol] 9.5 g/dL Low 11.7 - 16.0 g/dL [facility] [employer] [facility] Interpretation and review of laboratory results Abnormal [facility] Lymphocytes (Bld) [#/Vol] 0.3 10*3/uL Low 1.0 - 4.3 10*3/uL [facility] Lymphocytes/100 WBC (Bld) 3.1 % Low 20.0 - 40.0 % [facility] MCH (RBC) [Entitic mass] 25.5 pg Low 26.0 - 34.0 pg [facility] [employer] [facility] MCHC (RBC) [Mass/Vol] 31.7 % Low 32.0 - 36.0 % [facility] [employer] [facility] MCV (RBC) [Entitic vol] 80.5 fL 80.0 - 98.0 fL [facility] Monocytes (Bld) [#/Vol] 0.3 10*3/uL 0.0 - 0.8 10*3/uL [facility] Monocytes/100 WBC (Bld) 3.1 % 2.0 - 10.0 % [facility] Neutrophils (Bld) [#/Vol] 9.5 10*3/uL High 1.8 - 7.0 10*3/uL [facility] Neutrophils/100 WBC (Bld) 93.5 % High 40.0 - 80.0 % [facility] Nucleated RBC/100 WBC (Bld) [Ratio] 0.0 % [facility] Platelet mean volume (Bld) [Entitic vol] 10.5 fL 7.4 - 12.4 fL [facility] Platelets (Bld) [#/Vol] 116 10*3/uL Low 140 - 440 10*3/uL [facility] RBC (Bld) [#/Vol] 3.74 10*6/uL Low 3.8 - 5.20 10*6/uL [facility] WBC (Bld) [#/Vol] 10.2 10*3/uL 3.6 - 10.7 10*3/uL [facility] CK [Catalytic activity/Vol]o n 06-09-2022 Interpretation and review of laboratory results Normal [facility] CT Head WO contraston 2022 [facility] RADIOLOGY [facility] Radiology Study observation (narrative) [facility] Comprehensive metabolic 1998 panelon 06-09-2022 Albumin [Mass/Vol] 3.1 g/dL Low 3.5 - 5.0 g/dL [facility] ALP [Catalytic activity/Vol] 64 U/L 38 - 126 U/L [facility] ALT [Catalytic activity/Vol] 9 U/L 0 - 34 U/L [facility] Anion gap [Moles/Vol] 7 mmol/L 3 - 13 mmol/L [facility] AST [Catalytic activity/Vol] 23 U/L 15 - 46 U/L [facility] Bilirubin [Mass/Vol] 0.9 mg/dL 0.2 - 1 .3 mg/dL [facility] Calcium [Mass/Vol] 7.8 mg/dL Low 8.4 - 10. 4 mg/dL [facility] Chloride [Moles/Vol] 109 mmol/L High 98 - 10 7 mmol/L [facility] CO2 [Moles/Vol] 23 mmol/L 22 - 30 mmol/L [facility] Creatinine [Mass/Vol] 2.11 mg/dL High 0.52 - 1.04 mg/dL [facility] GFR/1.73 sq M.predicted MDRD (S/P/Bld) [Vol rate/Area] 24.3 mL/min/{1.73_m2} Low - PINF [facility] Glucose [Mass/Vol] 283 mg/dL High 70 - 100 mg/dL [facility] Interpretation and review of laboratory results Abnormal [facility] Potassium [Moles/Vol] 4.5 mmol/L 3.5 - 5.1 mmol/L [facility] Protein [Mass/Vol] 6.0 g/dL Low 6.3 - 8.2 g/dL [facility] Sodium [Moles/Vol] 138 mmol/L 135 - 145 mmol/L [facility] Urea nitrogen [Mass/Vol] 47 mg/dL High 7 - 17 mg/dL [facility] Hepatic function 2000 panelo n 06-09-2022 Albumin [Mass/Vol] 2.9 g/dL Low 3.5 - 5.0 g/dL [facility] ALP [Catalytic activity/Vol] 120 U/L 38 - 126 U/L [facility] ALT [Catalytic activity/Vol] 11 U/L 0 - 34 U/L [facility] AST [Catalytic activity/Vol] 24 U/L 15 - 46 U/L [facility] Bilirubin [Mass/Vol] 1.0 mg/dL 0.2 - 1 .3 mg/dL [facility] Bilirubin.conjugated [Mass/Vol] 0.0 mg/dL 0.0 - 0.3 mg/dL [facility] Protein [Mass/Vol] 6.1 g/dL Low 6.3 - 8.2 g/dL [facility] Laboratory - Chemistry and C hemistry - challengeon 06-09-2022 Glucose [Mass/Vol] 187 mg/dL High 70 - 100 mg/dL [facility] Procalcitonin [Mass/Vol] 17.91 ng/mL High 0.00 - 0.09 ng/mL [facility] Glucose [Mass/Vol] 293 mg/dL High 70 - 100 mg/dL [facility] Troponin I.cardiac [Mass/Vol] 0.037 ng/mL High 0.000 - 0.034 ng/mL [facility] Lactate [Moles/Vol] 1.9 mmol/L 0.7 - 2. 0 mmol/L [facility] Ammonia (P) [Moles/Vol] umol/L Low 9 - 30 umol/L [facility] CK [Catalytic activity/Vol] 106 U/L 30 - 170 U/L [facility] Lipase [Catalytic activity/Vol] U/L Low 23 - 300 U/L [facility] Base excess Calc (BldV) [Moles/Vol] -2.2000 mmol/L -3 - 3 mmol/L [facility] CO2 (BldV) [Partial pressure] 35.7 mm[Hg] Low [facility] CO2 [Moles/Vol] 23.3 mmol/L Low 24.0 - 28.0 mmol/L [facility] HCO3 (Bld) [Moles/Vol] 22.2 mmol/L Low 23.0 - 27.0 mmol/L [facility] Oxygen (BldV) [Partial pressure] 45.6 mm[Hg] [facility] pH (BldV) 7.403 [pH] 7.330 - 7.430 pH [facility] Laboratory - Chemistry and C hemistry - challengeOrdered By: Ana Harrison on 06-09-2022 Lactate [Moles/Vol] 2.9 mmol/L Critically high 0.7 - 2.0 mmol/L [facility] Manual differential performe d Ql (Bld)on 06-09-2022 Anisocytosis Ql (Bld) Slight Abnormal (none) [facility] Band form neutrophils (Bld) [#/Vol] 0.1 10*3/uL High NINF - 0.0 10*3/uL [facility] Band form neutrophils/100 WBC (Bld) 1 % High NINF - 0 % [facility] Bands Manual 1 [facility] [place] cells LM Ql (Bld) Slight Abnormal (none) [facility] Cells Counted Total (Bld) [#] 100 {cells} [facility] Dacrocytes LM Ql (Bld) Rare Abnormal (none) [facility] Lymphocytes (Bld) [#/Vol] 0.6 10*3/uL Low 1.0 - 4.3 10*3/uL [facility] Lymphocytes Manual 6 [facility] Lymphocytes/100 WBC (Bld) 6 % Low 20 - 40 % [facility] Metamyelocytes (Bld) [#/Vol] 0.4 10*3/uL High NINF - 0.0 10*3/uL [facility] Metamyelocytes Manual 4 [facility] Metamyelocytes/100 WBC (Bld) 4 % High NINF - 0 % [facility] Monocytes (Bld) [#/Vol] 0.3 10*3/uL 0.0 - 0.8 10*3/uL [facility] Monocytes Manual 3 [facility] Monocytes/100 WBC (Bld) 3 % 2 - 10 % [facility] Neutrophils (Bld) [#/Vol] 8.1 10*3/uL High 1.8 - 7.0 10*3/uL [facility] Neutrophils Manual 86 [facility] Neutrophils.vacuolated LM Ql (Bld) Present Abnormal (none) [facility] Ovalocytes LM Ql (Bld) Slight Abnormal (none) [facility] Platelet morphology finding Nom (Bld) Normal [facility] Poikilocytosis LM Ql (Bld) Slight Abnormal (none) [facility] Segmented neutrophils/100 WBC (Bld) 86 % High 40 - 80 % [facility] Toxic granules LM Ql (Bld) Present Abnormal (none) [facility] WBC corrected for nucl RBC (Bld) [#/Vol] 9.30 10*3/uL 3.60 - 10.70 10*3/uL [facility] No Panel Informationon 06-09 Interpretation and review of laboratory results Abnormal [facility] Interpretation and review of laboratory results Abnormal [facility] Interpretation and review of laboratory results Abnormal [facility] Interpretation and review of laboratory results Normal [facility] Interpretation and review of laboratory results Abnormal [facility] FIO2 21 [facility] Interpretation and review of laboratory results Abnormal [facility] No Panel InformationOrdered By: Ana Harrison on 06-09-2022 Interpretation and review of laboratory results Abnormal [facility] Procalcitonin [Mass/Vol]on 0 06-09-2022 Interpretation and review of laboratory results Abnormal [facility] Troponin I.cardiac [Mass/Vol ]on 06-09-2022 Interpretation and review of laboratory results Abnormal [facility] Urinalysis complete panel (U )on 06-09-2022 Bacteria LM.HPF (Urine sed) [#/Area] Many Abnormal Negative /HPF [facility] Bilirubin Ql (U) Negative Negative mg/dL [facility] Calcium oxalate crystals LM.HPF (Urine sed) [#/Area] Moderate Abnormal Negative /HPF [facility] Clarity (U) Extra Turbid Abnormal Clear [facility] Color (U) Yellow Lt. Yellow [facility] Epithelial cells.squamous LM.HPF (Urine sed) [#/Area] 0-2 [facility] Glucose Ql (U) 50 mg/dL Normal (<70) [facility] Hemoglobin Ql (U) 1.0 mg/dL Abnormal Negative [facility] Hyaline casts Auto (Urine sed) [#/Area] 0-2 Abnormal Negative /LPF [facility] Interpretation and review of laboratory results Abnormal [facility] Ketones (U) [Mass/Vol] Negative Negat iris mg/dL [facility] Leukocyte esterase Test strip Ql (U) 500 Abnormal Negative Jimenez/uL [facility] Mucus LM.HPF (Urine sed) [#/Area] Few Negative /LPF [facility] Nitrite Ql (U) Negative Negative [facility] pH (U) 5.5 [pH] 5.0 - 8.0 pH [facility] Protein (U) [Mass/Vol] 200 mg/dL Abnormal Negative [facility] RBC LM.HPF (Urine sed) [#/Area] 6-10 Abnormal [facility] Specific gravity (U) [Rel density] 1.024 1.005 - 1.030 [facility] Urobilinogen (U) [Mass/Vol] 2 mg/dL Abnormal Normal (0-1) [facility] WBC LM.HPF (Urine sed) [#/Area] 26-50 Abnormal [facility] Vital signson 06-09-2022 Oxygen saturation in Venous blood 81.8 % High 60.0 - 80.0 % [facility] XR Chest Single viewon 06-09 [facility] EMERGENCY DEPARTMENT RADIOLOGY [facility] RADIOLOGY SYSTEM [facility] Radiology Study observation (narrative) [facility] XR Chest Single viewOrdered By: Catarino Sue on 06-09-2022 [facility] Work Phone: aPTT Coag (Bld) [Time]on aPTT Coag (PPP) [Time] 41.0 s High 20.0 - 30.5 s [facility] Interpretation and review of laboratory results Abnormal [facility] Glucose,Bedsideon 04-15-2021 Glucose [Mass/Vol] 162 mg/dL High 70-100 [facility] Comment on above: Result Comment: Test performed by glucose meter. Results may be 10%-15% lowerthan serum/plasma values. (CLIA ID [id number]) Performed By: #### B GLU ####[facility] [employer] [id number] [place] [address] Glucose [Mass/Vol] 153 mg/dL High 70-100 [facility] Comment on above: Result Comment: Test performed by glucose meter. Results may be 10%-15% lowerthan serum/plasma values. (CLIA ID [id number]) Performed By: #### B GLU ####[facility] [employer] [facility] [id number] [place] [address] POCT Glucoseon 04-15-2021 Glucose [Mass/Vol] 162 mg/dL High 70 - 100 mg/dL [facility] Interpretation and review of laboratory results Abnormal [facility] Glucose [Mass/Vol] 153 mg/dL High 70 - 100 mg/dL [facility] Interpretation and review of laboratory results Abnormal [facility] Basic Metabolic Panelon 04-02 Anion gap [Moles/Vol] 10 mmol/L Normal 3-13 [facility] Comment on above: Performed By: #### B MP3, HEMDF, PHOS3 ####[facility] [employer] [facility] [id number] [place], [place] Calcium [Mass/Vol] 8.8 mg/dL Normal 8.4-10.4 [facility] Comment on above: Performed By: #### B MP3, HEMDF, PHOS3 ####[id number] [place], [place] CO2 [Moles/Vol] 25 mmol/L Normal 22-30 [facility] Comment on above: Performed By: #### B MP3, HEMDF, PHOS3 ####[facility] [employer] [facility] [id number] [place], [place] Glucose [Mass/Vol] 154 mg/dL High 70-100 [facility] Comment on above: Performed By: #### B MP3, HEMDF, PHOS3 ####[facility] [employer] [facility] [id number] [place], [place] Urea nitrogen [Mass/Vol] 24 mg/dL High 9-20 [facility] Comment on above: Performed By: #### B MP3, HEMDF, PHOS3 ####[employer] [place], [place] Creatinine [Mass/Vol] 1.32 mg/dL High 0.52-1.25 [facility] Comment on above: Performed By: #### B MP3, HEMDF, PHOS3 ####[facility] [employer] [facility] [id number] [place] GFR/1.73 sq M.predicted among blacks MDRD (S/P/Bld) [Vol rate/Area] 46.4 mL/min/{1.73_m2} Abnormal >60 [facility] Comment on above: Performed By: #### B ALTON3, HEMDF, PHOS3 ####[facility] [employer] [facility] [id number] [place] GFR/1.73 sq M.predicted among non-blacks MDRD (S/P/Bld) [Vol rate/Area] 40.0 mL/min/{1.73_m2} Abnormal >60 [facility] Comment on above: Result Comment: KDIG O guidelines provide the following GFR categories:Stage GFR(ml/min/1.73 m2) TermsG1 >=90 Normal or highG2 60-89 Mildly decreased*G3a 45-59 Mildly to moderately [id number] 30-44 Moderately to severely decreasedG4 15-29 Severely [...] Performed By: #### B MP3, HEMDF, PHOS3 ####[facility] [employer] [id number] [place], [place] Potassium [Moles/Vol] 3.9 mmol/L Normal 3.5-5.1 [facility] Comment on above: Performed By: #### B MP3, HEMDF, PHOS3 ####[facility] [place] [address] Sodium [Moles/Vol] 143 mmol/L Normal 135-145 [facility] Comment on above: Performed By: #### B MP3, HEMDF, PHOS3 ####[facility] [place] [address] Chloride [Moles/Vol] 107 mmol/L Normal 98-107 [facility] Comment on above: Performed By: #### B MP3, HEMDF, PHOS3 ####[facility] [place] [address] Anion gap [Moles/Vol] 10 mmol/L 3 - 13 mmol/L [facility] Calcium [Mass/Vol] 8.8 mg/dL 8.4 - 10. 4 mg/dL [facility] Chloride [Moles/Vol] 107 mmol/L 98 - 10 7 mmol/L [facility] CO2 [Moles/Vol] 25 mmol/L 22 - 30 mmol/L [facility] Creatinine [Mass/Vol] 1.32 mg/dL High 0.52 - 1.25 mg/dL [facility] EGFR IF NonAfrican Ecuadorean 40.0 mL/min Abnormal >60 [facility] GFR/1.73 sq M.predicted among blacks MDRD (S/P/Bld) [Vol rate/Area] 46.4 mL/min/{1.73_m2} Abnormal >60 [facility] Glucose [Mass/Vol] 154 mg/dL High 70 - 100 mg/dL [facility] Interpretation and review of laboratory results Abnormal [facility] Potassium [Moles/Vol] 3.9 mmol/L 3.5 - 5.1 mmol/L [facility] Sodium [Moles/Vol] 143 mmol/L 135 - 145 mmol/L [facility] Urea nitrogen (BldV) [Mass/Vol] 24 mg/dL High 9 - 20 mg/dL [facility] CBC auto differentialon 04-02 Absolute Baso # [...] [#/Vol] 4.9 10*3/uL 3.6 - 10.7 10*3/uL [facility] Glucose,Bedsideon 04-14-2021 Glucose [Mass/Vol] 189 mg/dL High 70-100 [facility] Comment on above: Result Comment: Test performed by glucose meter. Results may be 10%-15% lowerthan serum/plasma values. (CLIA ID [id number]) Performed By: #### B GLU ####[address] [place] [address] Glucose [Mass/Vol] 154 mg/dL High 70-100 [facility] Comment on above: Result Comment: Test performed by glucose meter. Results may be 10%-15% lowerthan serum/plasma values. (CLIA ID [id number]) Performed By: #### B GLU ####[facility] [employer] [id number] [place] [address] Glucose [Mass/Vol] 151 mg/dL High 70-100 [facility] Comment on above: Result Comment: Test performed by glucose meter. Results may be 10%-15% lowerthan serum/plasma values. (CLIA ID [id number]) Performed By: #### B GLU ####[facility] [employer] [address] [place], [place] Glucose [Mass/Vol] 164 mg/dL High 70-100 [facility] Comment on above: Result Comment: Test performed by glucose meter. Results may be 10%-15% lowerthan serum/plasma values. (CLIA ID [id number]) Performed By: #### B GLU ####[facility] [employer] [id number] [place], [place] Hemogram w/ Autodiffon 04-14 Abs Baso Cnt 0.0 10*3/uL Normal 0.0-0.2 [facility] Comment on above: Performed By: #### B MP3, HEMDF, PHOS3 ####[facility] [employer] [facility] [id number] [place], [place] Abs Neutrophile Cnt 2.3 10*3/uL Normal 1.8-7.0 [facility] Comment on above: Performed By: #### B MP3, HEMDF, PHOS3 ####[address] [place], [place] Basophils/100 WBC (Bld) 0.5 % Normal 0.0-2.0 [facility] Comment on above: Performed By: #### B MP3, HEMDF, PHOS3 ####[address] [place], [place] Eosinophils (Bld) [#/Vol] 0.3 10*3/uL Normal 0.0-0.5 [facility] Comment on above: Performed By: #### B MP3, HEMDF, PHOS3 ####[address] [place], [place] Eosinophils/100 WBC (Bld) 5.3 % Normal 1.0-6.0 [facility] Comment on above: Performed By: #### B MP3, HEMDF, PHOS3 ####[address] [place], [place] Erythrocyte distribution width (RBC) [Ratio] 18.6 % High 11.5-14.5 [facility] Comment on above: Performed By: #### B MP3, HEMDF, PHOS3 ####[facility] [employer] [id number] [place], [place] Granulocytes/100 WBC (Bld) 46.9 % Normal 40.0-80.0 [facility] Comment on above: Performed By: #### B MP3, HEMDF, PHOS3 ####[address] [place], [place] Hematocrit (Bld) [Volume fraction] 28.5 % Low 35.0-47.0 [facility] Comment on above: Performed By: #### B MP3, HEMDF, PHOS3 ####[facility] [employer] [id number] [place], [place] Hemoglobin (Bld) [Mass/Vol] 9.0 g/dL Low 11.7-16.0 [facility] Comment on above: Performed By: #### B MP3, HEMDF, PHOS3 ####[facility] [employer] [id number] [place], [place] Lymphocytes (Bld) [#/Vol] 1.8 10*3/uL Normal 1.0-4.3 [facility] Comment on above: Performed By: #### B MP3 HEMLJ, PHOS3 ####[address] [place], [place] Lymphocytes/100 WBC (Bld) 36.4 % Normal 20.0-40.0 [facility] Comment on above: Performed By: #### B MP3, HEMDF, PHOS3 ####[address] [place], [place] MCH (RBC) [Entitic mass] 27.4 pg Normal 26.0-34.0 [facility] Comment on above: Performed By: #### B MP3, HEMDF, PHOS3 ####[address] [place], [place] MCHC 31.5 % Low 32.0-36.0 [facility] Comment on above: Performed By: #### B MP3, HEMDF, PHOS3 ####[address] [place], [place] MCV (RBC) [Entitic vol] 87.0 fL Normal 79.0-98.0 [facility] Comment on above: Performed By: #### B MP3, HEMDF, PHOS3 ####[address] [place], [place] Monocytes (Bld) [#/Vol] 0.5 10*3/uL Normal 0.0-0.8 [facility] Comment on above: Performed By: #### B MP3, HEMDF, PHOS3 ####[address] [place], [place] Monocytes/100 WBC (Bld) 10.9 % High 2.0-10.0 [facility] Comment on above: Performed By: #### B MP3, HEMDF, PHOS3 ####[address] [place], [place] Platelet mean volume (Bld) [Entitic vol] 10.3 fL Normal 7.4-10.4 [facility] Comment on above: Performed By: #### B MP3, HEMDF, PHOS3 ####[facility] [place], [place] Platelets (Bld) [#/Vol] 225 10*3/uL Normal 140-440 [facility] Comment on above: Performed By: #### B MP3, HEMDF, PHOS3 ####[address] [place], [place] RBC (Bld) [#/Vol] 3.27 10*6/uL Low 3.80-5.20 [facility] Comment on above: Performed By: #### B MP3, HEMDF, PHOS3 ####[address] [place], [place] WBC (Bld) [#/Vol] 4.9 10*3/uL Normal 3.6-10.7 [facility] Comment on above: Performed By: #### B MP3, HEMDF, PHOS3 ####[address] [place], [place] No Panel Informationon 04-14 Interpretation and review of laboratory results Abnormal [facility] POCT Glucoseon 04-14-2021 Glucose [Mass/Vol] 189 mg/dL High 70 - 100 mg/dL [facility] Interpretation and review of laboratory results Abnormal [facility] Glucose [Mass/Vol] 154 mg/dL High 70 - 100 mg/dL [facility] Interpretation and review of laboratory results Abnormal [facility] Glucose [Mass/Vol] 151 mg/dL High 70 - 100 mg/dL [facility] Phosphoruson 04-14-2021 Phosphate [Mass/Vol] 4.4 mg/dL Normal 2.5-4.5 [facility] Comment on above: Performed By: #### B MP3, HEMDF, PHOS3 ####[address] [place], [place] Phosphate [Mass/Vol] 4.4 mg/dL 2.5 - 4 .5 mg/dL [facility] Basic Metabolic Panelon 04-02 Anion gap [Moles/Vol] 8 mmol/L Normal 3-13 [facility] Comment on above: Performed By: #### P HOS3, BMP3, HEMDF ####[employer] [id number] [place] [address] CO2 [Moles/Vol] 27 mmol/L Normal 22-30 [facility] Comment on above: Performed By: #### P HOS3, BMP3, HEMDF ####[employer] [id number] [place] [address] Creatinine [Mass/Vol] 1.42 mg/dL High 0.52-1.25 [facility] Comment on above: Performed By: #### P HOS3, BMP3, HEMDF ####[facility] [id number] [place] [address] GFR/1.73 sq M.predicted among blacks MDRD (S/P/Bld) [Vol rate/Area] 42.5 mL/min/{1.73_m2} Abnormal >60 [facility] Comment on above: Performed By: #### P HOS3, BMP3, HEMDF ####[employer] [id number] [place] [address] GFR/1.73 sq M.predicted among non-blacks MDRD (S/P/Bld) [Vol rate/Area] 36.7 mL/min/{1.73_m2} Abnormal >60 [facility] Comment on above: Result Comment: KDIG O guidelines provide the following GFR categories:Stage GFR(ml/min/1.73 m2) TermsG1 >=90 Normal or highG2 60-89 Mildly decreased*G3a 45-59 Mildly to moderately [id number] 30-44 Moderately to severely decreasedG4 15-29 Severely [...] tubular creatinine secretion. Performed By: #### P LAURA ROBERTO, HEMDF ####[address] [place] [address] Urea nitrogen [Mass/Vol] 28 mg/dL High 9-20 [facility] Comment on above: Performed By: #### P EDILBERTO ROBERTO3, HEMDF ####[address] [place] [address] Chloride [Moles/Vol] 107 mmol/L Normal 98-107 [facility] Comment on above: Performed By: #### P EDILBERTO ROBERTO3, HEMDF ####[address] [address] Potassium [Moles/Vol] 3.7 mmol/L Normal 3.5-5.1 [facility] Comment on above: Performed By: #### EDILBERTO JORGENSEN3, HEMDF ####[address] [address] Sodium [Moles/Vol] 142 mmol/L Normal 135-145 [facility] Comment on above: Performed By: #### P FELISA BMP3, HEMDF ####[address] [place] [address] Calcium [Mass/Vol] 8.7 mg/dL Normal 8.4-10.4 [facility] Comment on above: Performed By: #### P HOSFilemon BMP3, HEMDF ####[address] [place] [address] Glucose [Mass/Vol] 173 mg/dL High 70-100 [facility] Comment on above: Performed By: #### P HOSFilemon BMP3, HEMDF ####[address] [address] Anion gap [Moles/Vol] 8 mmol/L 3 - 13 mmol/L [facility] Chloride [Moles/Vol] 107 mmol/L 98 - 10 7 mmol/L [facility] CO2 [Moles/Vol] 27 mmol/L 22 - 30 mmol/L [facility] Creatinine [Mass/Vol] 1.42 mg/dL High 0.52 - 1.25 mg/dL [facility] EGFR IF NonAfrican Ecuadorean 36.7 mL/min Abnormal >60 [facility] GFR/1.73 sq M.predicted [...] [#/Vol] 4.4 10*3/uL 3.6 - 10.7 10*3/uL [facility] CULTURE URINEon 04-13-2021 CULTURE URINE Normal [facility] Comment on above: Performed By: #### C /UR ####[address] [address] [id number] Culture, Urineon 04-13-2021 Bacteria identified Cx Nom (U) Escherichia coli Abnormal [facility] Bacteria identified Cx Nom (U) [facility] Bacteria identified Cx Nom (U) Proteus mirabilis Abnormal [facility] Bacteria identified Cx Nom (U) >100,000 CFU/ml [facility] Interpretation and review of laboratory results Abnormal [facility] Glucose,Bedsideon 04-13-2021 Glucose [Mass/Vol] 132 mg/dL High 70-100 [facility] Comment on above: Result Comment: Test performed by glucose meter. Results may be 10%-15% lowerthan serum/plasma values. (CLIA ID [id number]) Performed By: #### B GLU ####[address] [place] [address] Glucose [Mass/Vol] 149 mg/dL High 70-100 [facility] Comment on above: Result Comment: Test performed by glucose meter. Results may be 10%-15% lowerthan serum/plasma values. (CLIA ID [id number]) Performed By: #### B GLU ####[facility] [employer] [id number] [place] [address] Glucose [Mass/Vol] 152 mg/dL High 70-100 [facility] Comment on above: Result Comment: Test performed by glucose meter. Results may be 10%-15% lowerthan serum/plasma values. (CLIA ID [id number]) Performed By: #### B GLU ####[facility] [employer] [id number] [place] [address] Glucose [Mass/Vol] 154 mg/dL High 70-100 [facility] Comment on above: Result Comment: Test performed by glucose meter. Results may be 10%-15% lowerthan serum/plasma values. (CLIA ID [id number]) Performed By: #### B GLU ####[facility] [employer] [address] [place], [place] Hemogram w/ Autodiffon 04-13 Abs Baso Cnt 0.0 10*3/uL Normal 0.0-0.2 [facility] Comment on above: Performed By: #### P HOS3, BMP3, HEMDF ####[address] [place] [address] Abs Neutrophile Cnt 2.5 10*3/uL Normal 1.8-7.0 [facility] Comment on above: Performed By: #### P HOS3, BMP3, HEMDF ####[address] [place] [address] Basophils/100 WBC (Bld) 0.5 % Normal 0.0-2.0 [facility] Comment on above: Performed By: #### P HOS3, BMP3, HEMDF ####[address] [place] [address] Eosinophils (Bld) [#/Vol] 0.2 10*3/uL Normal 0.0-0.5 [facility] Comment on above: Performed By: #### P HOS3, BMP3, HEMDF ####[address] Eosinophils/100 WBC (Bld) 4.4 % Normal 1.0-6.0 [facility] Comment on above: Performed By: #### P HOS3, BMP3, HEMDF ####[address] Erythrocyte distribution width (RBC) [Ratio] 18.6 % High 11.5-14.5 [facility] Comment on above: Performed By: #### P HOS3, BMP3, HEMDF ####[address] Granulocytes/100 WBC (Bld) 55.8 % Normal 40.0-80.0 [facility] Comment on above: Performed By: #### P HOS3, BMP3, HEMDF ####[address] Hematocrit (Bld) [Volume fraction] 26.9 % Low 35.0-47.0 [facility] Comment on above: Performed By: #### P HOS3, BMP3, HEMDF ####[address] Hemoglobin (Bld) [Mass/Vol] 8.6 g/dL Low 11.7-16.0 [facility] Comment on above: Performed By: #### P HOS3, BMP3, HEMDF ####[address] Lymphocytes (Bld) [#/Vol] 1.2 10*3/uL Normal 1.0-4.3 [facility] Comment on above: Performed By: #### P HOS3, BMP3, HEMDF ####[address] Lymphocytes/100 WBC (Bld) 28.1 % Normal 20.0-40.0 [facility] Comment on above: Performed By: #### P HOS3, BMP3, HEMDF ####[address] [place], [place] MCH (RBC) [Entitic mass] 27.7 pg Normal 26.0-34.0 [facility] Comment on above: Performed By: #### P HOS3, BMP3, HEMDF ####[address] [place], [place] MCHC 31.8 % Low 32.0-36.0 [facility] Comment on above: Performed By: #### P HOS3, BMP3, HEMDF ####[address] [place], [place] MCV (RBC) [Entitic vol] 87.3 fL Normal 79.0-98.0 [facility] Comment on above: Performed By: #### P HOS3, BMP3, HEMDF ####[address] [place], [place] Monocytes (Bld) [#/Vol] 0.5 10*3/uL Normal 0.0-0.8 [facility] Comment on above: Performed By: #### P HOS3, BMP3, HEMDF ####[address] [place], [place] Monocytes/100 WBC (Bld) 11.2 % High 2.0-10.0 [facility] Comment on above: Performed By: #### P HOS3, BMP3, HEMDF ####[address] [place], [place] Platelet mean volume (Bld) [Entitic vol] 10.1 fL Normal 7.4-10.4 [facility] Comment on above: Performed By: #### P HOS3, BMP3, HEMDF ####[address] [place], [place] Platelets (Bld) [#/Vol] 195 10*3/uL Normal 140-440 [facility] Comment on above: Performed By: #### P HOS3, BMP3, HEMDF ####[address], [place] RBC (Bld) [#/Vol] 3.09 10*6/uL Low 3.80-5.20 [facility] Comment on above: Performed By: #### P HOS3, BMP3, HEMDF ####[address] [place], [place] WBC (Bld) [#/Vol] 4.4 10*3/uL Normal 3.6-10.7 [facility] Comment on above: Performed By: #### P HOS3, BMP3, HEMDF ####[address] No Panel Informationon 04-13 [facility] PO[facility] Glucoseon 04-13-2021 Glucose [Mass/Vol] 132 mg/dL High 70 - 100 mg/dL [facility] Interpretation and review of laboratory results Abnormal [facility] Glucose [Mass/Vol] 149 mg/dL High 70 - 100 mg/dL [facility] Interpretation and review of laboratory results Abnormal [facility] Glucose [Mass/Vol] 152 mg/dL High 70 - 100 mg/dL [facility] Interpretation and review of laboratory results Abnormal [facility] Glucose [Mass/Vol] 154 mg/dL High 70 - 100 mg/dL [facility] Interpretation and review of laboratory results Abnormal [facility] Phosphoruson 04-13-2021 Phosphate [Mass/Vol] 4.4 mg/dL Normal 2.5-4.5 [facility] Comment on above: Performed By: #### P HOS3, BMP3, HEMDF ####[address] [place], [place] Basic Metabolic Panelon 04-02 Anion gap [Moles/Vol] 7 mmol/L Normal 3-13 [facility] Comment on above: Performed By: #### B MP3, HEMDF, PHOS3 ####[address] [place], [place] Calcium [Mass/Vol] 8.6 mg/dL Normal 8.4-10.4 [facility] Comment on above: Performed By: #### B MP3, HEMDF, PHOS3 ####[address] [place] CO2 [Moles/Vol] 29 mmol/L Normal 22-30 [facility] Comment on above: Performed By: #### B MP3, HEMDF, PHOS3 ####[address] [place] Glucose [Mass/Vol] 204 mg/dL High 70-100 [facility] Comment on above: Performed By: #### B MP3, HEMDF, PHOS3 ####[facility] [place], [place] Urea nitrogen [Mass/Vol] 31 mg/dL High 9-20 [facility] Comment on above: Performed By: #### B MP3, HEMDF, PHOS3 ####[address] [place], [place] Creatinine [Mass/Vol] 1.46 mg/dL High 0.52-1.25 [facility] Comment on above: Performed By: #### B MP3, HEMDF, PHOS3 ####[address] [place], [place] GFR/1.73 sq M.predicted among blacks MDRD (S/P/Bld) [Vol rate/Area] 41.1 mL/min/{1.73_m2} Abnormal >60 [facility] Comment on above: Performed By: #### B MP3, HEMDF, PHOS3 ####[address] [place], [place] GFR/1.73 sq M.predicted among non-blacks MDRD (S/P/Bld) [Vol rate/Area] 35.4 mL/min/{1.73_m2} Abnormal >60 [facility] Comment on above: Result Comment: KDIG O guidelines provide the following GFR categories:Stage GFR(ml/min/1.73 m2) TermsG1 >=90 Normal or highG2 60-89 Mildly decreased*G3a 45-59 Mildly to moderately [id number] 30-44 Moderately to severely decreasedG4 15-29 Severely [...] tubular creatinine secretion. Performed By: #### B JONATHAN HEMLJ PHOS3 ####[facility] [employer] [id number] [place], [place] Chloride [Moles/Vol] 106 mmol/L Normal 98-107 [facility] Comment on above: Performed By: #### Alvaro DANG3 HEMLJ PHOS3 ####[address] [place], [place] Potassium [Moles/Vol] 3.8 mmol/L Normal 3.5-5.1 [facility] Comment on above: Performed By: #### Alvaro CASTILLO HEMLJ PHOS3 ####[facility] [employer] [id number] [place], [place] Sodium [Moles/Vol] 141 mmol/L Normal 135-145 [facility] Comment on above: Performed By: #### Alvaro MPFilemon HEMLJ, PHOS3 ####[facility] [employer] [id number] [place], [place] Anion gap [Moles/Vol] 7 mmol/L 3 - 13 mmol/L [facility] Calcium [Mass/Vol] 8.6 mg/dL 8.4 - 10. 4 mg/dL [facility] Chloride [Moles/Vol] 106 mmol/L 98 - 10 7 mmol/L [facility] CO2 [Moles/Vol] 29 mmol/L 22 - 30 mmol/L [facility] Creatinine [Mass/Vol] 1.46 mg/dL High 0.52 - 1.25 mg/dL [facility] EGFR IF NonAfrican Ecuadorean 35.4 mL/min Abnormal >60 [facility] GFR/1.73 sq [...] [#/Vol] 209 10*3/uL 140 - 440 10*3/uL [facility] RBC (Bld) [#/Vol] 3.10 10*6/uL Low 3.80 - 5.2 0 10*6/uL [facility] WBC (Bld) [#/Vol] 4.3 10*3/uL 3.6 - 10.7 10*3/uL [facility] COVID-19on 04-12-2021 SARS-CoV-2 (COVID-19) RNA EZIO+probe Ql (Unsp spec) Not detected Not Detected [facility] Glucose,Bedsideon 04-12-2021 Glucose [Mass/Vol] 155 mg/dL High 70-[address] [place] [address] Comment on above: Result Comment: Test performed by glucose meter. Results may be 10%-15% lowerthan serum/plasma values. (CLIA ID [id number]) Performed By: #### B GLU ####[facility] [employer] [id number] [place] [address] Glucose [Mass/Vol] 149 mg/dL High [address] Comment on above: Result Comment: Test performed by glucose meter. Results may be 10%-15% lowerthan serum/plasma values. (CLIA ID [id number]) Performed By: #### B GLU ####[facility] [employer] [id number] [place] [address] Glucose [Mass/Vol] 181 mg/dL High [address] Comment on above: Result Comment: Test performed by glucose meter. Results may be 10%-15% lowerthan serum/plasma values. (CLIA ID [id number]) Performed By: #### B GLU ####[facility] [id number] [place], [place] Glucose [Mass/Vol] 204 mg/dL High 70-100 [facility] Comment on above: Result Comment: Test performed by glucose meter. Results may be 10%-15% lowerthan serum/plasma values. (CLIA ID [id number]) Performed By: #### B GLU ####[address] Hemogram w/ Autodiffon 04-12 Abs Baso Cnt 0.0 10*3/uL Normal 0.0-0.2 [facility] Comment on above: Performed By: #### B MP3, HEMDF, PHOS3 ####[address] Abs Neutrophile Cnt 2.4 10*3/uL Normal 1.8-7.0 [facility] Comment on above: Performed By: #### B MP3, HEMDF, PHOS3 ####[address] Basophils/100 WBC (Bld) 0.8 % Normal 0.0-2.0 [facility] Comment on above: Performed By: #### B MP3, HEMDF, PHOS3 ####[address] [place], [place] Eosinophils (Bld) [#/Vol] 0.2 10*3/uL Normal 0.0-0.5 [facility] Comment on above: Performed By: #### B MP3, HEMDF, PHOS3 ####[address] Eosinophils/100 WBC (Bld) 5.2 % Normal 1.0-6.0 [facility] Comment on above: Performed By: #### B MP3, HEMDF, PHOS3 ####[address] Erythrocyte distribution width (RBC) [Ratio] 18.8 % High 11.5-14.5 [facility] Comment on above: Performed By: #### B MP3, HEMDF, PHOS3 ####[address] [place], [place] Granulocytes/100 WBC (Bld) 56.3 % Normal 40.0-80.0 [facility] Comment on above: Performed By: #### B MP3, HEMDF, PHOS3 ####[address] [place], [place] Hematocrit (Bld) [Volume fraction] 27.2 % Low 35.0-47.0 [facility] Comment on above: Performed By: #### B MP3, HEMDF, PHOS3 ####[address] [place], [place] Hemoglobin (Bld) [Mass/Vol] 8.5 g/dL Low 11.7-16.0 [facility] Comment on above: Performed By: #### B MP3, HEMDF, PHOS3 ####[address] [place], [place] Lymphocytes (Bld) [#/Vol] 1.1 10*3/uL Normal 1.0-4.3 [facility] Comment on above: Performed By: #### B MP3, HEMDF, PHOS3 ####[address] [place], [place] Lymphocytes/100 WBC (Bld) 25.8 % Normal 20.0-40.0 [facility] Comment on above: Performed By: #### B MP3, HEMDF, PHOS3 ####[address] [place], [place] MCH (RBC) [Entitic mass] 27.6 pg Normal 26.0-34.0 [facility] Comment on above: Performed By: #### B MP3, HEMDF, PHOS3 ####[address] [place], [place] MCHC 31.4 % Low 32.0-36.0 [facility] Comment on above: Performed By: #### B MP3, HEMDF, PHOS3 ####[address] [place], [place] MCV (RBC) [Entitic vol] 87.7 fL Normal 79.0-98.0 [facility] Comment on above: Performed By: #### B MP3, HEMDF, PHOS3 ####[address] [place], [place] Monocytes (Bld) [#/Vol] 0.5 10*3/uL Normal 0.0-0.8 [facility] Comment on above: Performed By: #### B MP3, HEMDF, PHOS3 ####[address] [place], [place] Monocytes/100 WBC (Bld) 11.9 % High 2.0-10.0 [facility] Comment on above: Performed By: #### B MP3, HEMDF, PHOS3 ####[address] [place], [place] Platelet mean volume (Bld) [Entitic vol] 10.0 fL Normal 7.4-10.4 [facility] Comment on above: Performed By: #### B MP3, HEMDF, PHOS3 ####[address] [place], [place] Platelets (Bld) [#/Vol] 209 10*3/uL Normal 140-440 [facility] Comment on above: Performed By: #### B MP3, HEMDF, PHOS3 ####[address] [place], [place] RBC (Bld) [#/Vol] 3.10 10*6/uL Low 3.80-5.20 [facility] Comment on above: Performed By: #### B MP3, HEMDF, PHOS3 ####[address] [place], [place] WBC (Bld) [#/Vol] 4.3 10*3/uL Normal 3.6-10.7 [facility] Comment on above: Performed By: #### B MP3, HEMDF, PHOS3 ####[address] [place], [place] No Panel Informationon 04-12 Interpretation and review of laboratory results Abnormal [facility] POCT GlucoseOrdered By: Cov Integ on 04-12-2021 Glucose [Mass/Vol] 155 mg/dL High 70 - 100 mg/dL [facility] Interpretation and review of laboratory results Abnormal [facility] POCT Glucoseon 04-12-2021 [facility] Glucose [Mass/Vol] 149 mg/dL High 70 - 100 mg/dL [facility] Interpretation and review of laboratory results Abnormal [facility] Glucose [Mass/Vol] 181 mg/dL High 70 - 100 mg/dL [facility] Interpretation and review of laboratory results Abnormal [facility] Glucose [Mass/Vol] 204 mg/dL High 70 - 100 mg/dL [facility] Interpretation and review of laboratory results Abnormal [facility] Phosphoruson 04-12-2021 Phosphate [Mass/Vol] 4.7 mg/dL High 2.5-4.5 [facility] Comment on above: Performed By: #### B MP3, HEMDF, PHOS3 ####[address] [place] [address] Phosphate [Mass/Vol] 4.7 mg/dL High 2.5 - 4 .5 mg/dL [facility] [id number] 04-12-2021 SARS-CoV-2 (COVID-19) RNA EZIO+probe Ql (Unsp spec) Normal [facility] Comment on above: Performed By: #### C OVID ####[address] [place] [address] Special treatments and proce dureson 04-12-2021 [facility] Work Phone: Special treatments and proce duresOrdered By: Leonel Vang on 04-12-2021 [facility] Work Phone: XA Special Angiography Proce dureon 04-12-2021 XA Special Angiography Procedure Normal [facility] Add On Lab Teston 04-11-2021 Add On Accepted [facility] Add on test from HISon 04-11 Add on test from HIS Accepted Normal [facility] Comment on above: Result Comment: Spec imen available & acceptable for analysis. Performed By: #### A DDON ####[address] [place] [address] Basic Metabolic Panelon 04-02 Anion gap [Moles/Vol] 7 mmol/L Normal 3-13 [facility] Comment on above: Performed By: #### B HB, HEMDF, BMP3, PHOS3 ####[address] [place] [address] Calcium [Mass/Vol] 8.7 mg/dL Normal 8.4-10.4 [facility] Comment on above: Performed By: #### B HB, HEMDF, BMP3, PHOS3 ####[address] [place] [address] CO2 [Moles/Vol] 29 mmol/L Normal 22-30 [facility] Comment on above: Performed By: #### B HB, HEMDF, BMP3, PHOS3 ####[address] [place] [address] Glucose [Mass/Vol] 207 mg/dL High 70-100 [facility] Comment on above: Performed By: #### B HB, HEMDF, BMP3, PHOS3 ####[address] [place] [address] Urea nitrogen [Mass/Vol] 33 mg/dL High 9-20 [facility] Comment on above: Performed By: #### B HB, HEMDF, BMP3, PHOS3 ####[address] [place] [address] Creatinine [Mass/Vol] 1.61 mg/dL High 0.52-1.25 [facility] Comment on above: Performed By: #### B HB, HEMDF, BMP3, PHOS3 ####[address] [place] [address] GFR/1.73 sq M.predicted among blacks MDRD (S/P/Bld) [Vol rate/Area] 36.5 mL/min/{1.73_m2} Abnormal >60 [facility] Comment on above: Performed By: #### B HB, HEMDF, BMP3, PHOS3 ####[facility] [employer] [id number] [place] [address] GFR/1.73 sq M.predicted among non-blacks MDRD (S/P/Bld) [Vol rate/Area] 31.5 mL/min/{1.73_m2} Abnormal >60 [facility] Comment on above: Result Comment: KDIG O guidelines provide the following GFR categories:Stage GFR(ml/min/1.73 m2) TermsG1 >=90 Normal or highG2 60-89 Mildly decreased*G3a 45-59 Mildly to moderately [id number] 30-44 Moderately to severely decreasedG4 15-29 Severely [...] By: #### B HB, HEMDF, BMP3, PHOS3 ####[facility] [employer] [id number] [place] [address] Chloride [Moles/Vol] 104 mmol/L Normal 98-107 [facility] Comment on above: Performed By: #### B HB, HEMDF, BMP3, PHOS3 ####[facility] [employer] [id number] [place] [address] Potassium [Moles/Vol] 3.5 mmol/L Normal 3.5-5.1 [facility] Comment on above: Performed By: #### B HB, HEMDF, BMP3, PHOS3 ####[facility] [employer] [id number] [place] [address] Sodium [Moles/Vol] 140 mmol/L Normal 135-145 [facility] Comment on above: Performed By: #### B HB, HEMDF, BMP3, PHOS3 ####[id number] [place] [address] Anion gap [Moles/Vol] 7 mmol/L 3 - 13 mmol/L [facility] Calcium [Mass/Vol] 8.7 mg/dL 8.4 - 10. 4 mg/dL [facility] Chloride [Moles/Vol] 104 mmol/L 98 - 10 7 mmol/L [facility] CO2 [Moles/Vol] 29 mmol/L 22 - 30 mmol/L [facility] Creatinine [Mass/Vol] 1.61 mg/dL High 0.52 - 1.25 mg/dL [facility] IF NonAfrican [place] 31.5 mL/min Abnormal >60 [facility] GFR/1.73 sq M.predicted among blacks MDRD (S/P/Bld) [Vol rate/Area] 36.5 mL/min/{1.73_m2} Abnormal >60 [facility] Glucose [Mass/Vol] 207 mg/dL High 70 - 100 mg/dL [facility] Interpretation and review of laboratory results Abnormal [facility] Potassium [Moles/Vol] 3.5 mmol/L 3.5 - 5.1 mmol/L [facility] Sodium [Moles/Vol] 140 mmol/L 135 - 145 mmol/L [facility] Urea nitrogen (BldV) [Mass/Vol] 33 mg/dL High 9 - 20 mg/dL [facility] Beta Hydroxybutyrateon 04-11 Beta Hydroxybutyrate 1.58 mg/dL Normal 0.20-2.81 [facility] Comment on above: Performed By: #### B HB, HEMDF, BMP3, PHOS3 ####[address] [place] [address] Beta-Hydroxybutyrateon 04-11 Beta-Hydroxybutyrate 1.58 mg/dL 0.20 - 2.81 mg/dL [facility] CBC auto differentialon 04-02 Absolute Baso # 0.0 10*3/uL 0.0 - 0.2 10*3/uL [facility] Absolute Neut # 2.5 10*3/uL 1.8 - 7.0 10*3/uL [facility] Basophils/100 WBC (Bld) 0.8 % 0.0 - [...] [#/Vol] 4.6 10*3/uL 3.6 - 10.7 10*3/uL [facility] Glucose,Bedsideon 04-11-2021 Glucose [Mass/Vol] 159 mg/dL High 70-100 [facility] Comment on above: Result Comment: Test performed by glucose meter. Results may be 10%-15% lowerthan serum/plasma values. (CLIA ID [id number]) Performed By: #### B GLU ####[address] [place], [place] Glucose [Mass/Vol] 143 mg/dL High 70-100 [facility] Comment on above: Result Comment: Test performed by glucose meter. Results may be 10%-15% lowerthan serum/plasma values. (CLIA ID [id number]) Performed By: #### B GLU ####[address] Glucose [Mass/Vol] 171 mg/dL High 70-100 [facility] Comment on above: Result Comment: Test performed by glucose meter. Results may be 10%-15% lowerthan serum/plasma values. (CLIA ID [id number]) Performed By: #### B GLU ####[address] [address] [place], [place] Glucose [Mass/Vol] 190 mg/dL High 70-100 [facility] Comment on above: Result Comment: Test performed by glucose meter. Results may be 10%-15% lowerthan serum/plasma values. (CLIA ID [id number]) Performed By: #### B GLU ####[address] [place], [place] Hemogram w/ Autodiffon 04-11 Abs Baso Cnt 0.0 10*3/uL Normal 0.0-0.2 [facility] Comment on above: Performed By: #### B HB, HEMDF, BMP3, PHOS3 ####[address] [place], [place] Abs Neutrophile Cnt 2.5 10*3/uL Normal 1.8-7.0 [facility] Comment on above: Performed By: #### B HB, HEMDF, BMP3, PHOS3 ####[facility] [employer] [address] Basophils/100 WBC (Bld) 0.8 % Normal 0.0-2.0 [facility] Comment on above: Performed By: #### B HB, HEMDF, BMP3, PHOS3 ####[address] [place], [place] Eosinophils (Bld) [#/Vol] 0.3 10*3/uL Normal 0.0-0.5 [facility] Comment on above: Performed By: #### B HB, HEMDF, BMP3, PHOS3 ####[address] Eosinophils/100 WBC (Bld) 6.0 % Normal 1.0-6.0 [facility] Comment on above: Performed By: #### B HB, HEMDF, BMP3, PHOS3 ####[address] [place], [place] Erythrocyte distribution width (RBC) [Ratio] 19.0 % High 11.5-14.5 [facility] Comment on above: Performed By: #### B HB, HEMDF, BMP3, PHOS3 ####[address] [place], [place] Granulocytes/100 WBC (Bld) 53.6 % Normal 40.0-80.0 [facility] Comment on above: Performed By: #### B HB, HEMDF, BMP3, PHOS3 ####[address] Hematocrit (Bld) [Volume fraction] 26.2 % Low 35.0-47.0 [facility] Comment on above: Performed By: #### B HB, HEMDF, BMP3, PHOS3 ####[address] Hemoglobin (Bld) [Mass/Vol] 8.3 g/dL Low 11.7-16.0 [facility] Comment on above: Performed By: #### B HB, HEMDF, BMP3, PHOS3 ####[address] Lymphocytes (Bld) [#/Vol] 1.3 10*3/uL Normal 1.0-4.3 [facility] Comment on above: Performed By: #### B HB, HEMDF, BMP3, PHOS3 ####[address] [place], [place] Lymphocytes/100 WBC (Bld) 29.1 % Normal 20.0-40.0 [facility] Comment on above: Performed By: #### B HB, HEMDF, BMP3, PHOS3 ####[address] MCH (RBC) [Entitic mass] 27.7 pg Normal 26.0-34.0 [facility] Comment on above: Performed By: #### B HB, HEMDF, BMP3, PHOS3 ####[address] [place], [place] MCHC 31.7 % Low 32.0-36.0 [facility] Comment on above: Performed By: #### B HB, HEMDF, BMP3, PHOS3 ####[address] [place], [place] MCV (RBC) [Entitic vol] 87.5 fL Normal 79.0-98.0 [facility] Comment on above: Performed By: #### B HB, HEMDF, BMP3, PHOS3 ####[address] [place], [place] Monocytes (Bld) [#/Vol] 0.5 10*3/uL Normal 0.0-0.8 [facility] Comment on above: Performed By: #### B HB, HEMDF, BMP3, PHOS3 ####[address] [place], [place] Monocytes/100 WBC (Bld) 10.5 % High 2.0-10.0 [facility] Comment on above: Performed By: #### B HB, HEMDF, BMP3, PHOS3 ####[address] [place], [place] Platelet mean volume (Bld) [Entitic vol] 10.2 fL Normal 7.4-10.4 [facility] Comment on above: Performed By: #### B HB, HEMDF, BMP3, PHOS3 ####[address] [place], [place] Platelets (Bld) [#/Vol] 200 10*3/uL Normal 140-440 [facility] Comment on above: Performed By: #### B HB, HEMDF, BMP3, PHOS3 ####[address] [place], [place] RBC (Bld) [#/Vol] 2.99 10*6/uL Low 3.80-5.20 [facility] Comment on above: Performed By: #### B HB, HEMDF, BMP3, PHOS3 ####[address] [place], [place] WBC (Bld) [#/Vol] 4.6 10*3/uL Normal 3.6-10.7 [facility] Comment on above: Performed By: #### B HB, HEMDF, BMP3, PHOS3 ####[address] [place], [place] No Panel Informationon 04-11 [facility] POCT Glucoseon 04-11-2021 Glucose [Mass/Vol] 159 mg/dL High 70 - 100 mg/dL [facility] Interpretation and review of laboratory results Abnormal [facility] Glucose [Mass/Vol] 143 mg/dL High 70 - 100 mg/dL [facility] Interpretation and review of laboratory results Abnormal [facility] Glucose [Mass/Vol] 171 mg/dL High 70 - 100 mg/dL [facility] Interpretation and review of laboratory results Abnormal [facility] Glucose [Mass/Vol] 190 mg/dL High 70 - 100 mg/dL [facility] Work Phone: Interpretation and review of laboratory results Abnormal [facility] Work Phone: [facility] Work Phone: Phosphoruson 04-11-2021 Phosphate [Mass/Vol] 4.3 mg/dL Normal 2.5-4.5 [facility] [employer] [facility] Comment on above: Performed By: #### B HB, HEMDF, BMP3, PHOS3 ####[facility] [employer] [id number] [place] [address] Phosphate [Mass/Vol] 4.3 mg/dL 2.5 - 4 .5 mg/dL [facility] Special treatments and proce dureson 04-11-2021 Radiology Study observation (narrative) [facility] Work Phone: Urea Nitrogen, Ur 24Hron Urea Nitrogen, Ur 24Hr 5.1 g/(24.h) Low 12.0-20.0 [facility] Comment on above: Order Comment: CX CC 24H VRB T.WESTW: 389lbsTV: 934.5g Performed By: #### U N24U, CR324 ####[facility] [employer] [id number] [place] [address] Urea Nitrogen, Urine 549 mg/dL Normal No Range [facility] [employer] [facility] Comment on above: Order Comment: CX CC 24H VRB T.WESTW: 389lbsTV: 934.5g Performed By: #### U N24U, CR324 ####[facility] [employer] [id number] [place] [address] Urine nitrogen, urine, timed on 04-11-2021 Interpretation and review of laboratory results Abnormal [facility] Work Phone: Urea Nitrogen, 24H Ur 5.1 g/(24.h) Low 12.0 - 20.0 g/(24.h) [facility] Work Phone: Urea Nitrogen, Ur 549 mg/dL No Range [facility] Work Phone: [facility] Unomy [facility] Work Phone: Basic Metabolic Panelon Calcium [Mass/Vol] 8.7 mg/dL Normal 8.4-10.4 [facility] Comment on above: Performed By: #### H EMDF, PHOS3, BMP3 ####[facility] [employer] [id number] [place] [address] Glucose [Mass/Vol] 210 mg/dL High 70-100 [facility] Comment on above: Performed By: #### H EMDF, PHOS3, BMP3 ####[facility] [employer] [id number] [place] [address] Urea nitrogen [Mass/Vol] 30 mg/dL High 9-20 [facility] Comment on above: Performed By: #### H EMDF, PHOS3, BMP3 ####[facility] [employer] [id number] [place] [address] Anion gap [Moles/Vol] 7 mmol/L Normal 3-13 [facility] Comment on above: Performed By: #### H EMDF, PHOS3, BMP3 ####[facility] [employer] [id number] [place] [address] CO2 [Moles/Vol] 28 mmol/L Normal 22-30 [facility] Comment on above: Performed By: #### H EMDF, PHOS3, BMP3 ####[facility] [employer] [id number] [place] [address] Creatinine [Mass/Vol] 1.59 mg/dL High 0.52-1.25 [facility] Comment on above: Performed By: #### H EMDF, PHOS3, BMP3 ####[facility] [employer] [id number] [place] [address] GFR/1.73 sq M.predicted among blacks MDRD (S/P/Bld) [Vol rate/Area] 37.1 mL/min/{1.73_m2} Abnormal >60 [facility] Comment on above: Performed By: #### H EMDF, PHOS3, BMP3 ####[facility] [employer] [id number] [place] [address] GFR/1.73 sq M.predicted among non-blacks MDRD (S/P/Bld) [Vol rate/Area] 32.0 mL/min/{1.73_m2} Abnormal >60 [facility] Comment on above: Result Comment: KDIG O guidelines provide the following GFR categories:Stage GFR(ml/min/1.73 m2) TermsG1 >=90 Normal or highG2 60-89 Mildly decreased*G3a 45-59 Mildly to moderately pnoqdmmopY0i 30-44 Moderately to severely decreasedG4 15-29 Severely [...] Performed By: #### H HERACLIO NGO, BMP3 ####[address] [place] [address] Potassium [Moles/Vol] 3.6 mmol/L Normal 3.5-5.1 [facility] Comment on above: Performed By: #### H HERACLIO NGO, BMP3 ####[address] [place] [address] Chloride [Moles/Vol] 103 mmol/L Normal 98-107 [facility] Comment on above: Performed By: #### H HERACLIO NGO, BMP3 ####[address] [place] [address] Sodium [Moles/Vol] 138 mmol/L Normal 135-145 [facility] Comment on above: Performed By: #### H HERACLIO NGO, BMP3 ####[address] [place] [address] Anion gap [Moles/Vol] 7 mmol/L 3 - 13 mmol/L [facility] Calcium [Mass/Vol] 8.7 mg/dL 8.4 - 10. 4 mg/dL [facility] Chloride [Moles/Vol] 103 mmol/L 98 - 10 7 mmol/L [facility] CO2 [Moles/Vol] 28 mmol/L 22 - 30 mmol/L [facility] Creatinine [Mass/Vol] 1.59 mg/dL High 0.52 - 1.25 mg/dL [facility] EGFR IF NonAfrican Ecuadorean 32.0 mL/min Abnormal >60 [facility] GFR/1.73 sq [...] 10.5 fL High 7.4 - 10.4 fL [facility] Platelets (Bld) [#/Vol] 211 10*3/uL 140 - 440 10*3/uL [facility] RBC (Bld) [#/Vol] 3.08 10*6/uL Low 3.80 - 5.2 0 10*6/uL [facility] WBC (Bld) [#/Vol] 4.5 10*3/uL 3.6 - 10.7 10*3/uL [facility] Complete Urinalysison 2021 Appearance (U) Ex.Turbid Abnormal Clear [facility] Comment on above: Result Comment: . Performed By: #### C UA2 ####[facility] [employer] [id number] [place], [place] Bacteria Few Abnormal Negative [facility] Comment on above: Result Comment: . Performed By: #### C UA2 ####[address] [place], [place] Bilirubin,Urine Negative Normal Negative [facility] Comment on above: Result Comment: . Performed By: #### C UA2 ####[facility] [employer] [id number] [place], [place] Color (U) Yellow Normal Lt. Yellow [facility] Comment on above: Result Comment: . Performed By: #### C UA2 ####[facility] [employer] [id number] [place], [place] Glucose Ql (U) Normal Normal Normal (<70) [facility] Comment on above: Result Comment: . Performed By: #### C UA2 ####[facility] [employer] [id number] [place], [place] Ketone,Urine Negative Normal Negative [facility] Comment on above: Result Comment: . Performed By: #### C UA2 ####[address] [place], [place] Leukocytes,Urine 500 Jimenez/uL Abnormal Negative [facility] Comment on above: Result Comment: . Performed By: #### C UA2 ####[address] [place], [place] Nitrites,Urine Positive Abnormal Negative [facility] Comment on above: Result Comment: . Performed By: #### C UA2 ####[address] Occult Blood,Urine > 1.0 Abnormal Negative [facility] Comment on above: Result Comment: . Performed By: #### C UA2 ####[address] pH,Urine 5.5 Normal 5.0-8.0 [facility] Comment on above: Result Comment: . Performed By: #### C UA2 ####[address] Protein (U) [Mass/Vol] 70 mg/dL Abnormal Negative [facility] Comment on above: Result Comment: . Performed By: #### C UA2 ####[address] RBC, Urine 51 - 100 Abnormal 0-2 [facility] Comment on above: Result Comment: . Performed By: #### C UA2 ####[address] [place], [place] Specific Linn,Urine 1.019 Normal 1.005 - 1.030 [facility] Comment on above: Result Comment: . Performed By: #### C UA2 ####[address] Squamous Epithelial 3 - 5 Normal 3-5 [facility] Comment on above: Result Comment: . Performed By: #### C UA2 ####[address] [place], [place] Urobilinogen,Urine Normal Normal Normal (0-1) [facility] Comment on above: Result Comment: . Performed By: #### C UA2 ####[address] [place], [place] WBC LM.HPF (Urine sed) [#/Area] /[HPF] Abnormal 0-5 [facility] Comment on above: Result Comment: . Performed By: #### C UA2 ####[address] Creatinineon 04-10-2021 Creatinine [Mass/Vol] 1.62 mg/dL High 0.52-1.25 [facility] Comment on above: Performed By: #### C RTN3 ####[address] GFR/1.73 sq M.predicted among blacks MDRD (S/P/Bld) [Vol rate/Area] 36.2 mL/min/{1.73_m2} Abnormal >60 [facility] Comment on above: Performed By: #### C RTN3 ####[address] GFR/1.73 sq M.predicted among non-blacks MDRD (S/P/Bld) [Vol rate/Area] 31.3 mL/min/{1.73_m2} Abnormal >60 [facility] Comment on above: Result Comment: KDIG O guidelines provide the following GFR categories:Stage GFR(ml/min/1.73 m2) TermsG1 >=90 Normal or highG2 60-89 Mildly decreased*G3a 45-59 Mildly to moderately cesmabrlzY1t 30-44 Moderately to severely decreasedG4 15-29 Severely [...] creatinine secretion. Performed By: #### C RTN3 ####[facility] [employer] [id number] [place] [address] Creatinine, 24 HR Urineon Creatinine, 24H Ur 0.6 g/(24.h) Low 0.8 - 1.8 g/(24.h) [facility] Work Phone: Creatinine, Urine 62.2 mg/dL [facility] Work Phone: Total Volume 934 mL [facility] Work Phone: Creatinine, Serumon 04-10-19 EGFR IF NonAfrican Ecuadorean 31.3 mL/min Abnormal >60 [facility] Creatinine, Ur 24Hron 2021 Creatinine, Ur 24Hr 0.6 g/(24.h) Low 0.8-1.8 [facility] Comment on above: Order Comment: CX CC 24H VRB T.WESTW: 389lbsTV: 934.5g Performed By: #### U N24U, CR324 ####[facility] [employer] [place] [address] Creatinine, Urine 62.2 mg/dL Normal [facility] Comment on above: Order Comment: CX CC 24H VRB T.WESTW: 389lbsTV: 934.5g Performed By: #### U N24U, CR324 ####[facility] [employer] [place] [address] Total Volume 934 mL Normal [facility] Comment on above: Order Comment: CX CC 24H VRB T.WESTW: 389lbsTV: 934.5g Performed By: #### U N24U, CR324 ####[facility] [employer] [id number] [place] [address] Glucose,Bedsideon 04-10-2021 Glucose [Mass/Vol] 211 mg/dL High 70-100 [facility] Comment on above: Result Comment: Test performed by glucose meter. Results may be 10%-15% lowerthan serum/plasma values. (CLIA ID [id number]) Performed By: #### B GLU ####[address] [place], [place] Glucose [Mass/Vol] 184 mg/dL High 70-100 [facility] Comment on above: Result Comment: Test performed by glucose meter. Results may be 10%-15% lowerthan serum/plasma values. (CLIA ID [id number]) Performed By: #### B GLU ####[facility] [employer] [address] Glucose [Mass/Vol] 190 mg/dL High 70-100 [facility] Comment on above: Result Comment: Test performed by glucose meter. Results may be 10%-15% lowerthan serum/plasma values. (CLIA ID [id number]) Performed By: #### B GLU ####[address] Glucose [Mass/Vol] 216 mg/dL High 70-100 [facility] Comment on above: Result Comment: Test performed by glucose meter. Results may be 10%-15% lowerthan serum/plasma values. (CLIA ID [id number]) Performed By: #### B GLU ####[address] Hemogram w/ Autodiffon 04-10 Abs Baso Cnt 0.0 10*3/uL Normal 0.0-0.2 [facility] Comment on above: Performed By: #### H EMDF, PHOS3, BMP3 ####[address] [place], [place] Abs Neutrophile Cnt 2.3 10*3/uL Normal 1.8-7.0 [facility] Comment on above: Performed By: #### H EMDF, PHOS3, BMP3 ####[facility] [employer] [address] Basophils/100 WBC (Bld) 0.9 % Normal 0.0-2.0 [facility] Comment on above: Performed By: #### H EMDF, PHOS3, BMP3 ####[address] Eosinophils (Bld) [#/Vol] 0.3 10*3/uL Normal 0.0-0.5 [facility] Comment on above: Performed By: #### H EMDF, PHOS3, BMP3 ####[address] Eosinophils/100 WBC (Bld) 5.5 % Normal 1.0-6.0 [facility] Comment on above: Performed By: #### H EMDF, PHOS3, BMP3 ####[address] Erythrocyte distribution width (RBC) [Ratio] 18.7 % High 11.5-14.5 [facility] Comment on above: Performed By: #### H EMDF, PHOS3, BMP3 ####[address] Granulocytes/100 WBC (Bld) 49.8 % Normal 40.0-80.0 [facility] Comment on above: Performed By: #### H EMDF, PHOS3, BMP3 ####[address] Hematocrit (Bld) [Volume fraction] 26.8 % Low 35.0-47.0 [facility] Comment on above: Performed By: #### H EMDF, PHOS3, BMP3 ####[address] Hemoglobin (Bld) [Mass/Vol] 8.4 g/dL Low 11.7-16.0 [facility] Comment on above: Performed By: #### H EMDF, PHOS3, BMP3 ####[address] Lymphocytes (Bld) [#/Vol] 1.4 10*3/uL Normal 1.0-4.3 [facility] Comment on above: Performed By: #### H EMDF, PHOS3, BMP3 ####[address] Lymphocytes/100 WBC (Bld) 30.9 % Normal 20.0-40.0 [facility] Comment on above: Performed By: #### H HUBER PHOS3, BMP3 ####[address] [place], [place] MCH (RBC) [Entitic mass] 27.4 pg Normal 26.0-34.0 [facility] Comment on above: Performed By: #### H EMDCarmelo, PHOS3, BMP3 ####[address] MCHC 31.4 % Low 32.0-36.0 [facility] Comment on above: Performed By: #### H EMDCarmelo, PHOS3, BMP3 ####[address] MCV (RBC) [Entitic vol] 87.1 fL Normal 79.0-98.0 [facility] Comment on above: Performed By: #### H EMDF, PHOS3, BMP3 ####[address] Monocytes (Bld) [#/Vol] 0.6 10*3/uL Normal 0.0-0.8 [facility] Comment on above: Performed By: #### H EMDF, PHOS3, BMP3 ####[address] Monocytes/100 WBC (Bld) 12.9 % High 2.0-10.0 [facility] Comment on above: Performed By: #### H EMDF, PHOS3, BMP3 ####[address] Platelet mean volume (Bld) [Entitic vol] 10.5 fL High 7.4-10.4 [facility] Comment on above: Performed By: #### H EMDF, PHOS3, BMP3 ####[address] Platelets (Bld) [#/Vol] 211 10*3/uL Normal 140-440 [facility] Comment on above: Performed By: #### H EMDF, PHOS3, BMP3 ####[facility] [place], [place] RBC (Bld) [#/Vol] 3.08 10*6/uL Low 3.80-5.20 [facility] Comment on above: Performed By: #### H EMDF, PHOS3, BMP3 ####[address] [place], [place] WBC (Bld) [#/Vol] 4.5 10*3/uL Normal 3.6-10.7 [facility] Comment on above: Performed By: #### H EMDF, PHOS3, BMP3 ####[address] [place], [place] No Panel Informationon 04-10 Interpretation and review of laboratory results Abnormal [facility] Work Phone: [facility] Work Phone: [facility] POCT Glucoseon 04-10-2021 Glucose [Mass/Vol] 211 mg/dL High 70 - 100 mg/dL [facility] Interpretation and review of laboratory results Abnormal [facility] Glucose [Mass/Vol] 184 mg/dL High 70 - 100 mg/dL [facility] Interpretation and review of laboratory results Abnormal [facility] Glucose [Mass/Vol] 190 mg/dL High 70 - 100 mg/dL [facility] Interpretation and review of laboratory results Abnormal [facility] Glucose [Mass/Vol] 216 mg/dL High 70 - 100 mg/dL [facility] Interpretation and review of laboratory results Abnormal [facility] Phosphoruson 04-10-2021 Phosphate [Mass/Vol] 4.2 mg/dL Normal 2.5-4.5 [facility] Comment on above: Performed By: #### H EMDF, PHOS3, BMP3 ####[address] [place], [place] Phosphate [Mass/Vol] 4.2 mg/dL 2.5 - 4 .5 mg/dL [facility] Urinalysison 04-10-2021 Appearance (U) Ex.Turbid Abnormal Clear NA [facility] Bacteria, UA Few Abnormal Negative /[HPF] [facility] Bilirubin Urine Negative Negative mg/dL [facility] Color (U) Yellow Lt. Yellow NA [facility] Glucose, Ur Normal Normal (<70) mg/dL [facility] Interpretation and review of laboratory results Abnormal [facility] Ketones Ql (U) Negative Negative mg/dL [facility] LEUKOCYTES, UA 500 Abnormal Negative Jimenez/uL [facility] Nitrite, Urine Positive Abnormal Negative NA [facility] Occult Blood,Urine >1.0 Abnormal Negative mg/dL [facility] pH (U) 5.5 [pH] [facility] Protein (U) [Mass/Vol] 70 mg/dL Abnormal Negative [facility] RBC, UA 51-100 Abnormal 0 - 2 /[HPF] [facility] Specific Linn, Urine 1.019 [facility] Squam Epithel, UA 3-5 3 - 5 /[HPF] [facility] Urobilinogen, Urine Normal Normal (0-1) mg/dL [facility] WBC, UA >100 Abnormal 0 - 5 /[HPF] [facility] Basic Metabolic Panelon Anion gap [Moles/Vol] 9 mmol/L Normal 3-13 [facility] Comment on above: Performed By: #### H EMDF, BMP3, PHOS3 ####[facility] [place] [address] Calcium [Mass/Vol] 9.2 mg/dL Normal 8.4-10.4 [facility] Comment on above: Performed By: #### H EMDF, BMP3, PHOS3 ####[facility] [place] [address] CO2 [Moles/Vol] 29 mmol/L Normal 22-30 [facility] Comment on above: Performed By: #### H EMDF, BMP3, PHOS3 ####[address] [place] [address] Glucose [Mass/Vol] 215 mg/dL High 70-100 [facility] Comment on above: Performed By: #### H EMDF, BMP3, PHOS3 ####[facility] [employer] [id number] [place] [address] Urea nitrogen [Mass/Vol] 29 mg/dL High 9-20 [facility] Comment on above: Performed By: #### H HUBER BMP3, PHOS3 ####[employer] [address] [place] [address] Creatinine [Mass/Vol] 1.65 mg/dL High 0.52-1.25 [facility] Comment on above: Performed By: #### H EMDF BMP3, PHOS3 ####[facility] [employer] [address] [place] [address] GFR/1.73 sq M.predicted among blacks MDRD (S/P/Bld) [Vol rate/Area] 35.4 mL/min/{1.73_m2} Abnormal >60 [facility] Comment on above: Performed By: #### H EDILBERTO NGO3, PHOS3 ####[facility] [employer] [id number] [place] [address] GFR/1.73 sq M.predicted among non-blacks MDRD (S/P/Bld) [Vol rate/Area] 30.6 mL/min/{1.73_m2} Abnormal >60 [facility] Comment on above: Result Comment: KDIG O guidelines provide the following GFR categories:Stage GFR(ml/min/1.73 m2) TermsG1 >=90 Normal or highG2 60-89 Mildly decreased*G3a 45-59 Mildly to moderately [id number] 30-44 Moderately to severely decreasedG4 15-29 Severely [...] Performed By: #### H EMDF, BMP3, PHOS3 ####[facility] [place] [address] Potassium [Moles/Vol] 4.0 mmol/L Normal 3.5-5.1 [facility] Comment on above: Performed By: #### H EMDF, BMP3, PHOS3 ####[facility] [place] [address] Chloride [Moles/Vol] 101 mmol/L Normal 98-107 [facility] Comment on above: Performed By: #### H HUBER, BMP3, PHOS3 ####[facility] [place] [address] Sodium [Moles/Vol] 139 mmol/L Normal 135-145 [facility] Comment on above: Performed By: #### H HUBER, BMP3, PHOS3 ####[address] [place] [address] Anion gap [Moles/Vol] 9 mmol/L 3 - 13 mmol/L [facility] Calcium [Mass/Vol] 9.2 mg/dL 8.4 - 10. 4 mg/dL [facility] Chloride [Moles/Vol] 101 mmol/L 98 - 10 7 mmol/L [facility] CO2 [Moles/Vol] 29 mmol/L 22 - 30 mmol/L [facility] Creatinine [Mass/Vol] 1.65 mg/dL High 0.52 - 1.25 mg/dL [facility] EGFR IF NonAfrican Ecuadorean 30.6 mL/min Abnormal >60 [facility] GFR/1.73 sq M.predicted among blacks MDRD (S/P/Bld) [Vol rate/Area] 35.4 mL/min/{1.73_m2} Abnormal >60 [facility] Glucose [Mass/Vol] 215 mg/dL High 70 - 100 mg/dL [facility] Interpretation and review of laboratory results Abnormal [facility] Potassium [Moles/Vol] 4.0 mmol/L 3.5 - 5.1 mmol/L [facility] Sodium [Moles/Vol] 139 mmol/L 135 - 145 mmol/L [facility] Urea nitrogen (BldV) [Mass/Vol] 29 mg/dL High 9 - 20 mg/dL [facility] [...] [#/Vol] 4.8 10*3/uL 3.6 - 10.7 10*3/uL [facility] Creatinine, Ur 24Hron 2021 Creatinine, Ur 24Hr 0.0 g/(24.h) Low 0.8-1.8 [facility] Comment on above: Performed By: #### C R324, CC24H ####[facility] [employer] [id number] [place] [address] Creatinine, Urine 0.6 mg/dL Normal [facility] Comment on above: Performed By: #### C R324, CC24H ####[facility] [employer] [id number] [place] [address] Glucose,Bedsideon 04-09-2021 Glucose [Mass/Vol] 256 mg/dL High [address] [place] [address] Comment on above: Result Comment: Test performed by glucose meter. Results may be 10%-15% lowerthan serum/plasma values. (CLIA ID [id number]) Performed By: #### B GLU ####[facility] [employer] [id number] [place] [address] Glucose [Mass/Vol] 273 mg/dL [address] Comment on above: Result Comment: Test performed by glucose meter. Results may be 10%-15% lowerthan serum/plasma values. (CLIA ID [id number]) Performed By: #### B GLU ####[facility] [employer] [id number] [place] [address] Glucose [Mass/Vol] 206 mg/dL High [address] [place] [address] Comment on above: Result Comment: Test performed by glucose meter. Results may be 10%-15% lowerthan serum/plasma values. (CLIA ID [id number]) Performed By: #### B GLU ####[facility] [employer] [id number] [place] [address] Glucose [Mass/Vol] 212 mg/dL [address] Comment on above: Result Comment: Test performed by glucose meter. Results may be 10%-15% lowerthan serum/plasma values. (CLIA ID [id number]) Performed By: #### B GLU ####[address] Hemogram w/ Autodiffon 04-09 Abs Baso Cnt 0.0 10*3/uL Normal 0.0-0.2 [facility] Comment on above: Performed By: #### H EMDF, BMP3, PHOS3 ####[address] Abs Neutrophile Cnt 2.3 10*3/uL Normal 1.8-7.0 [facility] Comment on above: Performed By: #### H EMDF, BMP3, PHOS3 ####[address] Basophils/100 WBC (Bld) 0.8 % Normal 0.0-2.0 [facility] Comment on above: Performed By: #### H EMDF, BMP3, PHOS3 ####[address] Eosinophils (Bld) [#/Vol] 0.3 10*3/uL Normal 0.0-0.5 [facility] Comment on above: Performed By: #### H EMDF, BMP3, PHOS3 ####[address] Eosinophils/100 WBC (Bld) 6.0 % Normal 1.0-6.0 [facility] Comment on above: Performed By: #### H EMDF, BMP3, PHOS3 ####[address] Erythrocyte distribution width (RBC) [Ratio] 19.3 % High 11.5-14.5 [facility] Comment on above: Performed By: #### H EMDF, BMP3, PHOS3 ####[address] Granulocytes/100 WBC (Bld) 47.6 % Normal 40.0-80.0 [facility] Comment on above: Performed By: #### H EMDF, BMP3, PHOS3 ####[address] Hematocrit (Bld) [Volume fraction] 27.8 % Low 35.0-47.0 [facility] Comment on above: Performed By: #### H EMDF, BMP3, PHOS3 ####[address] Hemoglobin (Bld) [Mass/Vol] 8.8 g/dL Low 11.7-16.0 [facility] Comment on above: Performed By: #### H EMDF, BMP3, PHOS3 ####[address] Lymphocytes (Bld) [#/Vol] 1.6 10*3/uL Normal 1.0-4.3 [facility] Comment on above: Performed By: #### H EMDF, BMP3, PHOS3 ####[address] Lymphocytes/100 WBC (Bld) 33.1 % Normal 20.0-40.0 [facility] Comment on above: Performed By: #### H EMDCarmelo, BMP3, PHOS3 ####[address] MCH (RBC) [Entitic mass] 27.7 pg Normal 26.0-34.0 [facility] Comment on above: Performed By: #### H EMDF, BMP3, PHOS3 ####[address] MCHC 31.6 % Low 32.0-36.0 [facility] Comment on above: Performed By: #### H EMDF, BMP3, PHOS3 ####[address] MCV (RBC) [Entitic vol] 87.7 fL Normal 79.0-98.0 [facility] Comment on above: Performed By: #### H EMDF, BMP3, PHOS3 ####[address] [place] Monocytes (Bld) [#/Vol] 0.6 10*3/uL Normal 0.0-0.8 [facility] Comment on above: Performed By: #### H EMDF, BMP3, PHOS3 ####[address] [place], [place] Monocytes/100 WBC (Bld) 12.5 % High 2.0-10.0 [facility] Comment on above: Performed By: #### H EMDF, BMP3, PHOS3 ####[address] [place], [place] Platelet mean volume (Bld) [Entitic vol] 10.3 fL Normal 7.4-10.4 [facility] Comment on above: Performed By: #### H EMDF, BMP3, PHOS3 ####[address] Platelets (Bld) [#/Vol] 210 10*3/uL Normal 140-440 [facility] Comment on above: Performed By: #### H EMDF, BMP3, PHOS3 ####[address] RBC (Bld) [#/Vol] 3.17 10*6/uL Low 3.80-5.20 [facility] Comment on above: Performed By: #### H EMDF, BMP3, PHOS3 ####[address] [place], [place] WBC (Bld) [#/Vol] 4.8 10*3/uL Normal 3.6-10.7 [facility] Comment on above: Performed By: #### H EMDF, BMP3, PHOS3 ####[address] No Panel Informationon 04-09 [facility] PO[facility] Glucoseon 04-09-2021 Glucose [Mass/Vol] 256 mg/dL High 70 - 100 mg/dL [facility] Interpretation and review of laboratory results Abnormal [facility] Glucose [Mass/Vol] 273 mg/dL High 70 - 100 mg/dL [facility] Interpretation and review of laboratory results Abnormal [facility] Glucose [Mass/Vol] 206 mg/dL High 70 - 100 mg/dL [facility] Interpretation and review of laboratory results Abnormal [facility] Glucose [Mass/Vol] 212 mg/dL High 70 - 100 mg/dL [facility] Interpretation and review of laboratory results Abnormal [facility] Phosphoruson 04-09-2021 Phosphate [Mass/Vol] 4.0 mg/dL Normal 2.5-4.5 [facility] Comment on above: Performed By: #### H EMDF, BMP3, PHOS3 ####[address] [place] [address] Phosphate [Mass/Vol] 4.0 mg/dL 2.5 - 4 .5 mg/dL [facility] Basic Metabolic Panelon Anion gap [Moles/Vol] 5 mmol/L Normal 3-13 [facility] Comment on above: Performed By: #### H EMDF, BMP3, PHOS3 ####[facility] [employer] [place] [address] Calcium [Mass/Vol] 8.7 mg/dL Normal 8.4-10.4 [facility] Comment on above: Performed By: #### H EMDF, BMP3, PHOS3 ####[address] [place] [address] CO2 [Moles/Vol] 30 mmol/L Normal 22-30 [facility] Comment on above: Performed By: #### H EMDF, BMP3, PHOS3 ####[facility] [employer] [id number] [place] [address] Creatinine [Mass/Vol] 1.62 mg/dL High 0.52-1.25 [facility] Comment on above: Performed By: #### H EMDF, BMP3, PHOS3 ####[address] [place] [address] GFR/1.73 sq M.predicted among blacks MDRD (S/P/Bld) [Vol rate/Area] 36.2 mL/min/{1.73_m2} Abnormal >60 [facility] Comment on above: Performed By: #### H LAURA NGO, PHOS3 ####[facility] [employer] [id number] [place] [address] GFR/1.73 sq M.predicted among non-blacks MDRD (S/P/Bld) [Vol rate/Area] 31.3 mL/min/{1.73_m2} Abnormal >60 [facility] Comment on above: Result Comment: KDIG O guidelines provide the following GFR categories:Stage GFR(ml/min/1.73 m2) TermsG1 >=90 Normal or highG2 60-89 Mildly decreased*G3a 45-59 Mildly to moderately tuzlljargH1n 30-44 Moderately to severely decreasedG4 15-29 Severely [...] Performed By: #### H LAURA NGO, PHOS3 ####[facility] [employer] [id number] [place] [address] Glucose [Mass/Vol] 181 mg/dL High 70-100 [facility] Comment on above: Performed By: #### H EDILBERTO NGO3, PHOS3 ####[facility] [employer] [place] [address] Urea nitrogen [Mass/Vol] 18 mg/dL Normal 9-20 [facility] Comment on above: Performed By: #### H HUBER BMP3, PHOS3 ####[facility] [employer] [id number] [place] [address] Chloride [Moles/Vol] 103 mmol/L Normal 98-107 [facility] Comment on above: Performed By: #### H EMDF, BMP3, PHOS3 ####[facility] [place], [place] Potassium [Moles/Vol] 3.6 mmol/L Normal 3.5-5.1 [facility] Comment on above: Performed By: #### H EMDF, BMP3, PHOS3 ####[facility] [place], [place] Sodium [Moles/Vol] 137 mmol/L Normal 135-145 [facility] Comment on above: Performed By: #### H EMDF, BMP3, PHOS3 ####[address] [place], [place] Anion gap [Moles/Vol] 5 mmol/L 3 - 13 mmol/L [facility] Calcium [Mass/Vol] 8.7 mg/dL 8.4 - 10. 4 mg/dL [facility] Chloride [Moles/Vol] 103 mmol/L 98 - 10 7 mmol/L [facility] CO2 [Moles/Vol] 30 mmol/L 22 - 30 mmol/L [facility] Creatinine [Mass/Vol] 1.62 mg/dL High 0.52 - 1.25 mg/dL [facility] EGFR IF NonAfrican Ecuadorean 31.3 mL/min Abnormal >60 [facility] GFR/1.73 sq M.predicted among blacks MDRD (S/P/Bld) [Vol rate/Area] 36.2 mL/min/{1.73_m2} Abnormal >60 [facility] Glucose [Mass/Vol] 181 mg/dL High 70 - 100 mg/dL [facility] Interpretation and review of laboratory results Abnormal [facility] Potassium [Moles/Vol] 3.6 mmol/L 3.5 - 5.1 mmol/L [facility] Sodium [Moles/Vol] 137 mmol/L 135 - 145 mmol/L [facility] Urea nitrogen (BldV) [Mass/Vol] 18 mg/dL 9 - 20 mg/dL [facility] CBC auto differentialon Absolute Baso # [...] [#/Vol] 4.2 10*3/uL 3.6 - 10.7 10*3/uL [facility] Creat Clearance,24Hron 04-08 Creat Clearance,24Hr 17.8 mL/min/{1.73_m2} Low 80.0 -125.0 [facility] Comment on above: Performed By: #### C R324, CC24H ####[address] [place] [address] Creatinine, Ur 24 Hr 0.6 g/(24.h) Low 0.8-1.8 [facility] Comment on above: Performed By: #### C R324, CC24H ####[address] [facility] [address] Creatinine, Urine 70.0 mg/dL Normal [facility] Comment on above: Performed By: #### C R324, CC24H ####[address] [facility] [place] [address] Body height 157.48 cm Normal [facility] Comment on above: Performed By: #### Hakan R324, CC24H ####[address] [facility] [place] [address] Total Volume 859 mL Normal [facility] Comment on above: Performed By: #### Hakan R324, CC24H ####[address] [facility] [place] [address] Creatinine [Mass/Vol] 1.60 mg/dL High 0.52-1.25 [facility] Comment on above: Performed By: #### C R324, CC24H ####[address] [facility] [place] [address] Creatinine Clearance, Urine, 24 HROrdered By: Giuliana Do on 04-08-2021 Creatinine [Mass/Vol] 1.6 mg/dL High 0.52 - 1.25 mg/dL [facility] Work Phone: Creatinine Clearance 17.8 mL/min/{1.73_m2} Low 80.0 - 125.0 mL/min/{1.7 3_m2} [facility] Work Phone: Creatinine, 24H Ur 0.6 g/(24.h) Low 0.8 - 1.8 g/(24.h) [employer] Work Phone: Creatinine, Ur 70.0 mg/dL [employer] Work Phone: height 62.0 [in_i] [employer] Work Phone: Total Volume 859 mL [employer] Work Phone: Weight 394 [lb_av] [employer] Work Phone: Creatinine, 24 HR Urineon Creatinine, 24H Ur 0.0 g/(24.h) Low 0.8 - 1.8 g/(24.h) [employer] Work Phone: [phone] Creatinine, Urine 0.6 mg/dL [employer] Work Phone: Glucose,Bedsideon 04-08-2021 Glucose [Mass/Vol] 239 mg/dL High [address] [place] [address] Comment on above: Result Comment: Test performed by glucose meter. Results may be 10%-15% lowerthan serum/plasma values. (CLIA ID [id number]) Performed By: #### B GLU ####[employer] [place] [place] [address] Glucose [Mass/Vol] 191 mg/dL [address] Comment on above: Result Comment: Test performed by glucose meter. Results may be 10%-15% lowerthan serum/plasma values. (CLIA ID [id number]) Performed By: #### B GLU ####[employer] [place] [address] Glucose [Mass/Vol] 185 mg/dL [address] Comment on above: Result Comment: Test performed by glucose meter. Results may be 10%-15% lowerthan serum/plasma values. (CLIA ID [id number]) Performed By: #### B GLU ####[address] [place] [address] Glucose [Mass/Vol] 173 mg/dL [address] Comment on above: Result Comment: Test performed by glucose meter. Results may be 10%-15% lowerthan serum/plasma values. (CLIA ID [id number]) Performed By: #### B GLU ####[address] Hemogram w/ Autodiffon 04-08 Abs Baso Cnt 0.0 10*3/uL Normal 0.0-0.2 [facility] Comment on above: Performed By: #### H EMDF, BMP3, PHOS3 ####[address] Abs Neutrophile Cnt 2.1 10*3/uL Normal 1.8-7.0 [facility] Comment on above: Performed By: #### H EMDF, BMP3, PHOS3 ####[address] Basophils/100 WBC (Bld) 0.7 % Normal 0.0-2.0 [facility] Comment on above: Performed By: #### H EMDF, BMP3, PHOS3 ####[address] Eosinophils (Bld) [#/Vol] 0.2 10*3/uL Normal 0.0-0.5 [facility] Comment on above: Performed By: #### H EMDF, BMP3, PHOS3 ####[address] Eosinophils/100 WBC (Bld) 5.1 % Normal 1.0-6.0 [facility] Comment on above: Performed By: #### H EMDF, BMP3, PHOS3 ####[facility] [employer] [address] Erythrocyte distribution width (RBC) [Ratio] 18.9 % High 11.5-14.5 [facility] Comment on above: Performed By: #### H EMDF, BMP3, PHOS3 ####[facility] [employer] [address] Granulocytes/100 WBC (Bld) 49.7 % Normal 40.0-80.0 [facility] Comment on above: Performed By: #### H EMDF, BMP3, PHOS3 ####[address] [place], [place] Hematocrit (Bld) [Volume fraction] 25.0 % Low 35.0-47.0 [facility] Comment on above: Performed By: #### H EMDF, BMP3, PHOS3 ####[address] Hemoglobin (Bld) [Mass/Vol] 8.1 g/dL Low 11.7-16.0 [facility] Comment on above: Performed By: #### H EMDF, BMP3, PHOS3 ####[address] Lymphocytes (Bld) [#/Vol] 1.3 10*3/uL Normal 1.0-4.3 [facility] Comment on above: Performed By: #### H EMDF, BMP3, PHOS3 ####[address] Lymphocytes/100 WBC (Bld) 32.3 % Normal 20.0-40.0 [facility] Comment on above: Performed By: #### H EMDF, BMP3, PHOS3 ####[address] MCH (RBC) [Entitic mass] 28.4 pg Normal 26.0-34.0 [facility] Comment on above: Performed By: #### H EMDF, BMP3, PHOS3 ####[address] MCHC 32.4 % Normal 32.0-36.0 [facility] Comment on above: Performed By: #### H EMDF, BMP3, PHOS3 ####[address] MCV (RBC) [Entitic vol] 87.5 fL Normal 79.0-98.0 [facility] Comment on above: Performed By: #### H EMDF, BMP3, PHOS3 ####[address] [place], [place] Monocytes (Bld) [#/Vol] 0.5 10*3/uL Normal 0.0-0.8 [facility] Comment on above: Performed By: #### H EMDF, BMP3, PHOS3 ####[address] [place], [place] Monocytes/100 WBC (Bld) 12.2 % High 2.0-10.0 [facility] Comment on above: Performed By: #### H EMDF, BMP3, PHOS3 ####[address] [place], [place] Platelet mean volume (Bld) [Entitic vol] 10.2 fL Normal 7.4-10.4 [facility] Comment on above: Performed By: #### H EMDF, BMP3, PHOS3 ####[address] Platelets (Bld) [#/Vol] 187 10*3/uL Normal 140-440 [facility] Comment on above: Performed By: #### H EMDF, BMP3, PHOS3 ####[address] [place], [place] RBC (Bld) [#/Vol] 2.86 10*6/uL Low 3.80-5.20 [facility] Comment on above: Performed By: #### H EMDF, BMP3, PHOS3 ####[address] [place], [place] WBC (Bld) [#/Vol] 4.2 10*3/uL Normal 3.6-10.7 [facility] Comment on above: Performed By: #### H EMDF, BMP3, PHOS3 ####[address] No Panel InformationOrdered By: Giuliana Do on 04-08-2021 Interpretation and review of laboratory results Abnormal [facility] Work Phone: [facility] Work Phone: No Panel Informationon 04-08 [facility] POCT Glucoseon 04-08-2021 Glucose [Mass/Vol] 239 mg/dL High 70 - 100 mg/dL [facility] Interpretation and review of laboratory results Abnormal [facility] Glucose [Mass/Vol] 191 mg/dL High 70 - 100 mg/dL [facility] Interpretation and review of laboratory results Abnormal [facility] Glucose [Mass/Vol] 185 mg/dL High 70 - 100 mg/dL [facility] Interpretation and review of laboratory results Abnormal [facility] Glucose [Mass/Vol] 173 mg/dL High 70 - 100 mg/dL [facility] Interpretation and review of laboratory results Abnormal [facility] Phosphoruson 04-08-2021 Phosphate [Mass/Vol] 3.5 mg/dL Normal 2.5-4.5 [facility] Comment on above: Performed By: #### H EMDF, BMP3, PHOS3 ####[address] [place] [address] Phosphate [Mass/Vol] 3.5 mg/dL 2.5 - 4 .5 mg/dL [facility] Basic Metabolic Panelon Calcium [Mass/Vol] 9.0 mg/dL Normal 8.4-10.4 [facility] Comment on above: Performed By: #### H EMDF, PHOS3, BMP3 ####[address] [place] [address] Glucose [Mass/Vol] 205 mg/dL High 70-100 [facility] Comment on above: Performed By: #### H EMDF, PHOS3, BMP3 ####[facility] [employer] [id number] [place] [address] Anion gap [Moles/Vol] 6 mmol/L Normal 3-13 [facility] Comment on above: Performed By: #### H EMDF, PHOS3, BMP3 ####[address] [place] [address] CO2 [Moles/Vol] 30 mmol/L Normal 22-30 [facility] Comment on above: Performed By: #### H EMDF, PHOS3, BMP3 ####[facility] [employer] [id number] [place], [place] Creatinine [Mass/Vol] 1.40 mg/dL High 0.52-1.25 [facility] Comment on above: Performed By: #### H EMDF, PHOS3, BMP3 ####[facility] [employer] [id number] [place], [place] GFR/1.73 sq M.predicted among blacks MDRD (S/P/Bld) [Vol rate/Area] 43.2 mL/min/{1.73_m2} Abnormal >60 [facility] Comment on above: Performed By: #### H EMDF, PHOS3, BMP3 ####[facility] [employer] [id number] [place], [place] GFR/1.73 sq M.predicted among non-blacks MDRD (S/P/Bld) [Vol rate/Area] 37.3 mL/min/{1.73_m2} Abnormal >60 [facility] Comment on above: Result Comment: KDIG O guidelines provide the following GFR categories:Stage GFR(ml/min/1.73 m2) TermsG1 >=90 Normal or highG2 60-89 Mildly decreased*G3a 45-59 Mildly to moderately [id number] 30-44 Moderately to severely decreasedG4 15-29 Severely [...] Performed By: #### H EMDF, PHOS3, BMP3 ####[facility] [employer] [id number] [place], [place] Urea nitrogen [Mass/Vol] 14 mg/dL Normal 9-20 [facility] Comment on above: Performed By: #### H EMDF, PHOS3, BMP3 ####[facility] [place] [address] Chloride [Moles/Vol] 102 mmol/L Normal 98-107 [facility] Comment on above: Performed By: #### H EMDF, PHOS3, BMP3 ####[facility] [place] [address] Potassium [Moles/Vol] 4.0 mmol/L Normal 3.5-5.1 [facility] Comment on above: Performed By: #### H EMDF, PHOS3, BMP3 ####[facility] [place] [address] Sodium [Moles/Vol] 139 mmol/L Normal 135-145 [facility] Comment on above: Performed By: #### H EMDF, PHOS3, BMP3 ####[address] [place] [address] Anion gap [Moles/Vol] 6 mmol/L 3 - 13 mmol/L [facility] Calcium [Mass/Vol] 9.0 mg/dL 8.4 - 10. 4 mg/dL [facility] Chloride [Moles/Vol] 102 mmol/L 98 - 10 7 mmol/L [facility] CO2 [Moles/Vol] 30 mmol/L 22 - 30 mmol/L [facility] Creatinine [Mass/Vol] 1.4 mg/dL High 0.52 - 1.25 mg/dL [facility] EGFR IF NonAfrican Ecuadorean 37.3 mL/min Abnormal >60 [facility] GFR/1.73 sq M.predicted among blacks MDRD (S/P/Bld) [Vol rate/Area] 43.2 mL/min/{1.73_m2} Abnormal >60 [facility] Glucose [Mass/Vol] 205 mg/dL High 70 - 100 mg/dL [facility] Interpretation and review of laboratory results Abnormal [facility] Potassium [Moles/Vol] 4.0 mmol/L 3.5 - 5.1 mmol/L [facility] Sodium [Moles/Vol] 139 mmol/L 135 - 145 mmol/L [facility] Urea nitrogen (BldV) [Mass/Vol] 14 mg/dL 9 - 20 mg/dL [facility] CBC auto differentialon 0 Absolute Baso # 0.0 10*3/uL 0.0 - [...] 10*6/uL Low 3.80 - 5.2 0 10*6/uL [facility] WBC (Bld) [#/Vol] 3.7 10*3/uL 3.6 - 10.7 10*3/uL [facility] Glucose,[place] 04-07-2021 Glucose [Mass/Vol] 183 mg/dL High [address] [facility] Comment on above: Result Comment: Test performed by glucose meter. Results may be 10%-15% lowerthan serum/plasma values. (CLIA ID [id number]) Performed By: #### B GLU ####[facility] [employer] [place] [address] Glucose [Mass/Vol] 185 mg/dL [address] Comment on above: Result Comment: Test performed by glucose meter. Results may be 10%-15% lowerthan serum/plasma values. (CLIA ID [id number]) Performed By: #### B GLU ####[employer] [place] [address] Glucose [Mass/Vol] 191 mg/dL [address] Comment on above: Result Comment: Test performed by glucose meter. Results may be 10%-15% lowerthan serum/plasma values. (CLIA ID [id number]) Performed By: #### B GLU ####[employer] [place] [address] Glucose [Mass/Vol] 189 mg/dL [address] Comment on above: Result Comment: Test performed by glucose meter. Results may be 10%-15% lowerthan serum/plasma values. (CLIA ID [id number]) Performed By: #### B GLU ####[employer] [place] [address] Hemogram w/ Autodiffon 04-07 Abs Baso Cnt 0.0 10*3/uL Normal 0.0-0.2 [facility] Comment on above: Performed By: #### H EMDF, PHOS3, BMP3 ####[address] Abs Neutrophile Cnt 2.0 10*3/uL Normal 1.8-7.0 [facility] Comment on above: Performed By: #### H EMDF, PHOS3, BMP3 ####[address] Basophils/100 WBC (Bld) 0.8 % Normal 0.0-2.0 [facility] Comment on above: Performed By: #### H EMDF, PHOS3, BMP3 ####[address] Eosinophils (Bld) [#/Vol] 0.1 10*3/uL Normal 0.0-0.5 [facility] Comment on above: Performed By: #### H EMDF, PHOS3, BMP3 ####[address] Eosinophils/100 WBC (Bld) 3.3 % Normal 1.0-6.0 [facility] Comment on above: Performed By: #### H EMDF, PHOS3, BMP3 ####[address] Erythrocyte distribution width (RBC) [Ratio] 18.9 % High 11.5-14.5 [facility] Comment on above: Performed By: #### H EMDF, PHOS3, BMP3 ####[address] Granulocytes/100 WBC (Bld) 53.3 % Normal 40.0-80.0 [facility] Comment on above: Performed By: #### H EMDF, PHOS3, BMP3 ####[address] Hematocrit (Bld) [Volume fraction] 27.2 % Low 35.0-47.0 [facility] Comment on above: Performed By: #### H EMDF, PHOS3, BMP3 ####[address] Hemoglobin (Bld) [Mass/Vol] 8.7 g/dL Low 11.7-16.0 [facility] Comment on above: Performed By: #### H HUBER PHOS3, BMP3 ####[address] Lymphocytes (Bld) [#/Vol] 1.2 10*3/uL Normal 1.0-4.3 [facility] Comment on above: Performed By: #### H EMDCarmelo, PHOS3, BMP3 ####[address] Lymphocytes/100 WBC (Bld) 31.2 % Normal 20.0-40.0 [facility] Comment on above: Performed By: #### H EMDCarmelo, PHOS3, BMP3 ####[address] MCH (RBC) [Entitic mass] 27.9 pg Normal 26.0-34.0 [facility] Comment on above: Performed By: #### H EMDCarmelo, PHOS3, BMP3 ####[address] MCHC 32.0 % Normal 32.0-36.0 [facility] Comment on above: Performed By: #### H EMDCarmelo, PHOS3, BMP3 ####[address] MCV (RBC) [Entitic vol] 87.3 fL Normal 79.0-98.0 [facility] Comment on above: Performed By: #### H EMDF, PHOS3, BMP3 ####[address] Monocytes (Bld) [#/Vol] 0.4 10*3/uL Normal 0.0-0.8 [facility] Comment on above: Performed By: #### H EMDF, PHOS3, BMP3 ####[address] Monocytes/100 WBC (Bld) 11.4 % High 2.0-10.0 [facility] Comment on above: Performed By: #### H EMDCarmelo PHOS3, BMP3 ####[facility] [place], [place] Platelet mean volume (Bld) [Entitic vol] 9.8 fL Normal 7.4-10.4 [facility] Comment on above: Performed By: #### H EMDCarmelo, PHOS3, BMP3 ####[place] [place], [place] Platelets (Bld) [#/Vol] 206 10*3/uL Normal 140-440 [facility] Comment on above: Performed By: #### H HUBER PHOS3, BMP3 ####[address] [place], [place] RBC (Bld) [#/Vol] 3.11 10*6/uL Low 3.80-5.20 [facility] Comment on above: Performed By: #### H EMDCarmelo PHOS3, BMP3 ####[address] [place], [place] WBC (Bld) [#/Vol] 3.7 10*3/uL Normal 3.6-10.7 [facility] Comment on above: Performed By: #### H EMDCarmelo PHOS3, BMP3 ####[address] [place], [place] No Panel Informationon 04-07 [facility] Glucoseon 04-07-2021 Glucose [Mass/Vol] 183 mg/dL High 70 - 100 mg/dL [facility] Interpretation and review of laboratory results Abnormal [facility] Glucose [Mass/Vol] 185 mg/dL High 70 - 100 mg/dL [facility] Interpretation and review of laboratory results Abnormal [facility] Glucose [Mass/Vol] 191 mg/dL High 70 - 100 mg/dL [facility] Interpretation and review of laboratory results Abnormal [facility] Glucose [Mass/Vol] 189 mg/dL High 70 - 100 mg/dL [facility] Interpretation and review of laboratory results Abnormal [facility] Phosphoruson 04-07-2021 Phosphate [Mass/Vol] 3.2 mg/dL Normal 2.5-4.5 [facility] Comment on above: Performed By: #### H EMDF, PHOS3, BMP3 ####[address] [place] [address] Phosphate [Mass/Vol] 3.2 mg/dL 2.5 - 4 .5 mg/dL [facility] Basic Metabolic Panelon Calcium [Mass/Vol] 8.8 mg/dL Normal 8.4-10.4 [facility] Comment on above: Performed By: #### P HOS3, HEMDF, BMP3 ####[address] [place] [address] Anion gap [Moles/Vol] 7 mmol/L Normal 3-13 [facility] Comment on above: Performed By: #### P HOS3, HEMDF, BMP3 ####[address] CO2 [Moles/Vol] 27 mmol/L Normal 22-30 [facility] Comment on above: Performed By: #### P HOS3, HEMDF, BMP3 ####[address] [place] [address] Creatinine [Mass/Vol] 1.72 mg/dL High 0.52-1.25 [facility] Comment on above: Performed By: #### P HOS3, HEMDF, BMP3 ####[address] [place], [place] GFR/1.73 sq M.predicted among blacks MDRD (S/P/Bld) [Vol rate/Area] 33.7 mL/min/{1.73_m2} Abnormal >60 [facility] Comment on above: Performed By: #### P HOS3, HEMDF, BMP3 ####[address] [place] [address] GFR/1.73 sq M.predicted among non-blacks MDRD (S/P/Bld) [Vol rate/Area] 29.1 mL/min/{1.73_m2} Abnormal >60 [facility] Comment on above: Result Comment: KDIG O guidelines provide the following GFR categories:Stage GFR(ml/min/1.73 m2) TermsG1 >=90 Normal or highG2 60-89 Mildly decreased*G3a 45-59 Mildly to moderately ldedcfcmeV6a 30-44 Moderately to severely decreasedG4 15-29 Severely [...] Performed By: #### P HOS3, HEMDF, BMP3 ####[facility] [employer] [id number] [place], [place] Glucose [Mass/Vol] 224 mg/dL High 70-100 [facility] Comment on above: Performed By: #### P HOS3, HEMDF, BMP3 ####[facility] [employer] [id number] [place], [place] Urea nitrogen [Mass/Vol] 18 mg/dL Normal 9-20 [facility] Comment on above: Performed By: #### P HOS3, HEMDF, BMP3 ####[facility] [employer] [id number] [place], [place] Chloride [Moles/Vol] 102 mmol/L Normal 98-107 [facility] Comment on above: Performed By: #### P HOS3, HEMDF, BMP3 ####[address] [place], [place] Potassium [Moles/Vol] 3.7 mmol/L Normal 3.5-5.1 [facility] Comment on above: Performed By: #### P HOS3, HEMDF, BMP3 ####[facility] [employer] [id number] [place], [place] Sodium [Moles/Vol] 136 mmol/L Normal 135-145 [facility] Comment on above: Performed By: #### P HOS3, HEMDF, BMP3 ####[facility] [id number] [place] [address] Anion gap [Moles/Vol] 7 mmol/L 3 - 13 mmol/L [facility] Calcium [Mass/Vol] 8.8 mg/dL 8.4 - 10. 4 mg/dL [facility] Chloride [Moles/Vol] 102 mmol/L 98 - 10 7 mmol/L [facility] CO2 [Moles/Vol] 27 mmol/L 22 - 30 mmol/L [facility] Creatinine [Mass/Vol] 1.72 mg/dL High 0.52 - 1.25 mg/dL [facility] EGFR IF NonAfrican Ecuadorean 29.1 mL/min Abnormal >60 [facility] GFR/1.73 sq [...] 7.9 g/dL Low 11.7 - 16.0 g/dL [facility] Interpretation and review of laboratory results [...] [#/Vol] 4.0 10*3/uL 3.6 - 10.7 10*3/uL [facility] Glucose,Bedsideon 04-06-2021 Glucose [Mass/Vol] 162 mg/dL High 70-100 [facility] Comment on above: Result Comment: Test performed by glucose meter. Results may be 10%-15% lowerthan serum/plasma values. (CLIA ID [id number]) Performed By: #### B GLU ####[address] [address] Glucose [Mass/Vol] 204 mg/dL High 70-100 [facility] Comment on above: Result Comment: Test performed by glucose meter. Results may be 10%-15% lowerthan serum/plasma values. (CLIA ID [id number]) Performed By: #### B GLU ####[address] [place] [address] Glucose [Mass/Vol] 177 mg/dL High 70-100 [facility] Comment on above: Result Comment: Test performed by glucose meter. Results may be 10%-15% lowerthan serum/plasma values. (CLIA ID [id number]) Performed By: #### B GLU ####[address] [address] Glucose [Mass/Vol] 207 mg/dL High 70-100 [facility] Comment on above: Result Comment: Test performed by glucose meter. Results may be 10%-15% lowerthan serum/plasma values. (CLIA ID [id number]) Performed By: #### B GLU ####[address] [address] Hemogram w/ Autodiffon 04-06 Abs Baso Cnt 0.0 10*3/uL Normal 0.0-0.2 [facility] Comment on above: Performed By: #### P HOS3, HEMDF, BMP3 ####[address] [address] Abs Neutrophile Cnt 2.1 10*3/uL Normal 1.8-7.0 [facility] Comment on above: Performed By: #### P HOS3, HEMDF, BMP3 ####[address] [address] Basophils/100 WBC (Bld) 0.9 % Normal 0.0-2.0 [facility] Comment on above: Performed By: #### P HOS3, HEMDF, BMP3 ####[address] [address] Eosinophils (Bld) [#/Vol] 0.2 10*3/uL Normal 0.0-0.5 [facility] Comment on above: Performed By: #### P HOS3, HEMDF, BMP3 ####[address] Eosinophils/100 WBC (Bld) 4.4 % Normal 1.0-6.0 [facility] Comment on above: Performed By: #### P HOS3, HEMDF, BMP3 ####[address] Erythrocyte distribution width (RBC) [Ratio] 18.9 % High 11.5-14.5 [facility] Comment on above: Performed By: #### P HOS3, HEMDF, BMP3 ####[address] Granulocytes/100 WBC (Bld) 51.0 % Normal 40.0-80.0 [facility] Comment on above: Performed By: #### P HOS3, HEMDF, BMP3 ####[address] Hematocrit (Bld) [Volume fraction] 25.1 % Low 35.0-47.0 [facility] Comment on above: Performed By: #### P HOS3, HEMDF, BMP3 ####[address] Hemoglobin (Bld) [Mass/Vol] 7.9 g/dL Low 11.7-16.0 [facility] Comment on above: Performed By: #### P HOS3, HEMDF, BMP3 ####[address] Lymphocytes (Bld) [#/Vol] 1.3 10*3/uL Normal 1.0-4.3 [facility] Comment on above: Performed By: #### P HOS3, HEMDF, BMP3 ####[address] Lymphocytes/100 WBC (Bld) 32.6 % Normal 20.0-40.0 [facility] Comment on above: Performed By: #### P HOS3, HEMDF, BMP3 ####[address] [place], [place] MCH (RBC) [Entitic mass] 27.6 pg Normal 26.0-34.0 [facility] Comment on above: Performed By: #### P HOS3, HEMDF, BMP3 ####[address] [place], [place] MCHC 31.5 % Low 32.0-36.0 [facility] Comment on above: Performed By: #### P HOS3, HEMDF, BMP3 ####[address] [place], [place] MCV (RBC) [Entitic vol] 87.6 fL Normal 79.0-98.0 [facility] Comment on above: Performed By: #### P HOS3, HEMDF, BMP3 ####[address] [place], [place] Monocytes (Bld) [#/Vol] 0.4 10*3/uL Normal 0.0-0.8 [facility] Comment on above: Performed By: #### P HOS3, HEMDF, BMP3 ####[address] [place], [place] Monocytes/100 WBC (Bld) 11.1 % High 2.0-10.0 [facility] Comment on above: Performed By: #### P HOS3, HEMDF, BMP3 ####[address] Platelet mean volume (Bld) [Entitic vol] 9.7 fL Normal 7.4-10.4 [facility] Comment on above: Performed By: #### P HOS3, HEMDF, BMP3 ####[address] [place], [place] Platelets (Bld) [#/Vol] 200 10*3/uL Normal 140-440 [facility] Comment on above: Performed By: #### P HOS3, HEMDF, BMP3 ####[address] RBC (Bld) [#/Vol] 2.86 10*6/uL Low 3.80-5.20 [facility] Comment on above: Performed By: #### P HOS3, HEMDF, BMP3 ####[facility] [place], [place] WBC (Bld) [#/Vol] 4.0 10*3/uL Normal 3.6-10.7 [facility] Comment on above: Performed By: #### P HOS3, HEMDF, BMP3 ####[address] [place], [place] No Panel Informationon 04-06 [facility] PO[facility] Glucoseon 04-06-2021 Glucose [Mass/Vol] 162 mg/dL High 70 - 100 mg/dL [facility] Interpretation and review of laboratory results Abnormal [facility] Glucose [Mass/Vol] 204 mg/dL High 70 - 100 mg/dL [facility] Interpretation and review of laboratory results Abnormal [facility] Glucose [Mass/Vol] 177 mg/dL High 70 - 100 mg/dL [facility] Interpretation and review of laboratory results Abnormal [facility] Glucose [Mass/Vol] 207 mg/dL High 70 - 100 mg/dL [facility] Interpretation and review of laboratory results Abnormal [facility] Phosphoruson 04-06-2021 Phosphate [Mass/Vol] 3.4 mg/dL Normal 2.5-4.5 [facility] Comment on above: Performed By: #### P HOS3, HEMDF, BMP3 ####[facility] [place], [place] Phosphate [Mass/Vol] 3.4 mg/dL 2.5 - 4 .5 mg/dL [facility] Basic Metabolic Panelon Anion gap [Moles/Vol] 7 mmol/L Normal 3-13 [facility] Comment on above: Performed By: #### B MP3, HEMDF, PHOS3 ####[address] [place] [address] Calcium [Mass/Vol] 8.8 mg/dL Normal 8.4-10.4 [facility] Comment on above: Performed By: #### B MP3, HEMDF, PHOS3 ####[address] [place] [address] CO2 [Moles/Vol] 29 mmol/L Normal 22-30 [facility] Comment on above: Performed By: #### B MP3, HEMDF, PHOS3 ####[address] [place] [address] Glucose [Mass/Vol] 210 mg/dL High 70-100 [facility] Comment on above: Performed By: #### B MP3, HEMDF, PHOS3 ####[address] [place], [place] Urea nitrogen [Mass/Vol] 16 mg/dL Normal 9-20 [facility] Comment on above: Performed By: #### B MP3, HEMDF, PHOS3 ####[address] [place], [place] Creatinine [Mass/Vol] 1.56 mg/dL High 0.52-1.25 [facility] Comment on above: Performed By: #### B MP3, HEMDF, PHOS3 ####[address] [place] [address] GFR/1.73 sq M.predicted among blacks MDRD (S/P/Bld) [Vol rate/Area] 37.9 mL/min/{1.73_m2} Abnormal >60 [facility] Comment on above: Performed By: #### B MP3, HEMDF, PHOS3 ####[address] [place] [address] GFR/1.73 sq M.predicted among non-blacks MDRD (S/P/Bld) [Vol rate/Area] 32.7 mL/min/{1.73_m2} Abnormal >60 [facility] Comment on above: Result Comment: KDIG O guidelines provide the following GFR categories:Stage GFR(ml/min/1.73 m2) TermsG1 >=90 Normal or highG2 60-89 Mildly decreased*G3a 45-59 Mildly to moderately ilebjjmkcC4o 30-44 Moderately to severely decreasedG4 15-29 Severely [...] creatinine secretion. Performed By: #### B ATILIO CASTILLO PHOS3 ####[address] [place] [address] Potassium [Moles/Vol] 4.0 mmol/L Normal 3.5-5.1 [facility] Comment on above: Performed By: #### ATILIO HERNANDEZ PHOS3 ####[address] [place] [address] Chloride [Moles/Vol] 101 mmol/L Normal 98-107 [facility] Comment on above: Performed By: #### Alvaro CASTILLO HEMLJ PHOS3 ####[address] [place] [address] Sodium [Moles/Vol] 137 mmol/L Normal 135-145 [facility] Comment on above: Performed By: #### Alvaro CASTILLO HEMLJ PHOS3 ####[address] [place] [address] Anion gap [Moles/Vol] 7 mmol/L 3 - 13 mmol/L [facility] Calcium [Mass/Vol] 8.8 mg/dL 8.4 - 10. 4 mg/dL [facility] Chloride [Moles/Vol] 101 mmol/L 98 - 10 7 mmol/L [facility] CO2 [Moles/Vol] 29 mmol/L 22 - 30 mmol/L [facility] Creatinine [Mass/Vol] 1.56 mg/dL High 0.52 - 1.25 mg/dL [facility] EGFR IF NonAfrican Ecuadorean 32.7 mL/min Abnormal >60 [facility] GFR/1.73 sq [...] [#/Vol] 209 10*3/uL 140 - 440 10*3/uL [facility] RBC (Bld) [#/Vol] 2.95 10*6/uL Low 3.80 - 5.2 0 10*6/uL [facility] WBC (Bld) [#/Vol] 3.9 10*3/uL 3.6 - 10.7 10*3/uL [facility] Glucose,Bedsideon 04-05-2021 Glucose [Mass/Vol] 281 mg/dL [address] Comment on above: Result Comment: Test performed by glucose meter. Results may be 10%-15% lowerthan serum/plasma values. (CLIA ID [id number]) Performed By: #### B GLU ####[employer] [place] [address] Glucose [Mass/Vol] 243 mg/dL [address] Comment on above: Result Comment: Test performed by glucose meter. Results may be 10%-15% lowerthan serum/plasma values. (CLIA ID [id number]) Performed By: #### B GLU ####[employer] [id number] [place] [address] Glucose [Mass/Vol] 205 mg/dL [address] Comment on above: Result Comment: Test performed by glucose meter. Results may be 10%-15% lowerthan serum/plasma values. (CLIA ID [id number]) Performed By: #### B GLU ####[employer] [id number] [place] [address] Glucose [Mass/Vol] 184 mg/dL High 70-100 [facility] Comment on above: Result Comment: Test performed by glucose meter. Results may be 10%-15% lowerthan serum/plasma values. (CLIA ID [id number]) Performed By: #### B GLU ####[address] Hemogram w/ Autodiffon 04-05 Abs Baso Cnt 0.0 10*3/uL Normal 0.0-0.2 [facility] Comment on above: Performed By: #### B MP3, HEMDF, PHOS3 ####[address] Abs Neutrophile Cnt 2.2 10*3/uL Normal 1.8-7.0 [facility] Comment on above: Performed By: #### B MP3, HEMDF, PHOS3 ####[facility] [employer] [id number] [place], [place] Basophils/100 WBC (Bld) 1.0 % Normal 0.0-2.0 [facility] Comment on above: Performed By: #### B MP3, HEMDF, PHOS3 ####[facility] [employer] [id number] [place], [place] Eosinophils (Bld) [#/Vol] 0.2 10*3/uL Normal 0.0-0.5 [facility] Comment on above: Performed By: #### B MP3, HEMDF, PHOS3 ####[facility] [employer] [address] Eosinophils/100 WBC (Bld) 5.4 % Normal 1.0-6.0 [facility] Comment on above: Performed By: #### B MP3, HEMDF, PHOS3 ####[facility] [employer] [id number] [place], [place] Erythrocyte distribution width (RBC) [Ratio] 19.0 % High 11.5-14.5 [facility] Comment on above: Performed By: #### B MP3, HEMDF, PHOS3 ####[facility] [employer] [address] [place] Granulocytes/100 WBC (Bld) 56.0 % Normal 40.0-80.0 [facility] Comment on above: Performed By: #### B MP3, HEMDF, PHOS3 ####[address] [place], [place] Hematocrit (Bld) [Volume fraction] 26.0 % Low 35.0-47.0 [facility] Comment on above: Performed By: #### B MP3, HEMDF, PHOS3 ####[address] Hemoglobin (Bld) [Mass/Vol] 8.2 g/dL Low 11.7-16.0 [facility] Comment on above: Performed By: #### B MP3, HEMDF, PHOS3 ####[address] Lymphocytes (Bld) [#/Vol] 1.0 10*3/uL Normal 1.0-4.3 [facility] Comment on above: Performed By: #### B MP3, HEMDF, PHOS3 ####[address] Lymphocytes/100 WBC (Bld) 26.4 % Normal 20.0-40.0 [facility] Comment on above: Performed By: #### B MP3, HEMDF, PHOS3 ####[address] MCH (RBC) [Entitic mass] 27.7 pg Normal 26.0-34.0 [facility] Comment on above: Performed By: #### B MP3, HEMDF, PHOS3 ####[address] MCHC 31.4 % Low 32.0-36.0 [facility] Comment on above: Performed By: #### B MP3, HEMDF, PHOS3 ####[address] MCV (RBC) [Entitic vol] 88.1 fL Normal 79.0-98.0 [facility] Comment on above: Performed By: #### B MP3, HEMDF, PHOS3 ####[facility] [employer] [id number] [place], [place] Monocytes (Bld) [#/Vol] 0.4 10*3/uL Normal 0.0-0.8 [facility] Comment on above: Performed By: #### B MP3, HEMDF, PHOS3 ####[facility] [employer] [id number] [place], [place] Monocytes/100 WBC (Bld) 11.2 % High 2.0-10.0 [facility] Comment on above: Performed By: #### B MP3, HEMDF, PHOS3 ####[address] [place], [place] Platelet mean volume (Bld) [Entitic vol] 10.0 fL Normal 7.4-10.4 [facility] Comment on above: Performed By: #### B MP3, HEMDF, PHOS3 ####[facility] [employer] [id number] [place], [place] Platelets (Bld) [#/Vol] 209 10*3/uL Normal 140-440 [facility] Comment on above: Performed By: #### B MP3, HEMDF, PHOS3 ####[address] [place], [place] RBC (Bld) [#/Vol] 2.95 10*6/uL Low 3.80-5.20 [facility] Comment on above: Performed By: #### B MP3, HEMDF, PHOS3 ####[facility] [employer] [id number] [place], [place] WBC (Bld) [#/Vol] 3.9 10*3/uL Normal 3.6-10.7 [facility] Comment on above: Performed By: #### B MP3, HEMDF, PHOS3 ####[facility] [employer] [id number] [place], [place] No Panel Informationon 04-05 [facility] POCT Glucoseon 04-05-2021 Glucose [Mass/Vol] 281 mg/dL High 70 - 100 mg/dL [facility] Interpretation and review of laboratory results Abnormal [facility] Glucose [Mass/Vol] 243 mg/dL High 70 - 100 mg/dL [facility] Interpretation and review of laboratory results Abnormal [facility] Glucose [Mass/Vol] 205 mg/dL High 70 - 100 mg/dL [facility] Interpretation and review of laboratory results Abnormal [facility] Glucose [Mass/Vol] 184 mg/dL High 70 - 100 mg/dL [facility] Interpretation and review of laboratory results Abnormal [facility] Phosphoruson 04-05-2021 Phosphate [Mass/Vol] 3.3 mg/dL Normal 2.5-4.5 [facility] Comment on above: Performed By: #### B MP3, HEMDF, PHOS3 ####[address] [place] [address] Phosphate [Mass/Vol] 3.3 mg/dL 2.5 - 4 .5 mg/dL [facility] Basic Metabolic Panelon Calcium [Mass/Vol] 8.9 mg/dL Normal 8.4-10.4 [facility] Comment on above: Performed By: #### P HOS3, BMP3, HEMDF ####[id number] [place] [address] Glucose [Mass/Vol] 229 mg/dL High 70-100 [facility] Comment on above: Performed By: #### P HOS3, BMP3, HEMDF ####[id number] [place] [address] Anion gap [Moles/Vol] 8 mmol/L Normal 3-13 [facility] Comment on above: Performed By: #### P HOS3, BMP3, HEMDF ####[place] [id number] [place] [address] CO2 [Moles/Vol] 29 mmol/L Normal 22-30 [facility] Comment on above: Performed By: #### P HOS3, BMP3, HEMDF ####[facility] [employer] [id number] [place] [address] Creatinine [Mass/Vol] 2.11 mg/dL High 0.52-1.25 [facility] Comment on above: Performed By: #### P HOS3, BMP3, HEMDF ####[facility] [place] [address] GFR/1.73 sq M.predicted among blacks MDRD (S/P/Bld) [Vol rate/Area] 26.3 mL/min/{1.73_m2} Abnormal >60 [facility] Comment on above: Performed By: #### P HOS3, BMP3, HEMDF ####[facility] [employer] [id number] [place] [address] GFR/1.73 sq M.predicted among non-blacks MDRD (S/P/Bld) [Vol rate/Area] 22.7 mL/min/{1.73_m2} Abnormal >60 [facility] Comment on above: Result Comment: KDIG O guidelines provide the following GFR categories:Stage GFR(ml/min/1.73 m2) TermsG1 >=90 Normal or highG2 60-89 Mildly decreased*G3a 45-59 Mildly to moderately nwvpmnuzqA3x 30-44 Moderately to severely decreasedG4 15-29 Severely [...] Performed By: #### P HOS3, BMP3, HEMDF ####[facility] [employer] [id number] [place] [address] Urea nitrogen [Mass/Vol] 23 mg/dL High 9-20 [facility] Comment on above: Performed By: #### P HOS3, BMP3, HEMDF ####[facility] [place] [address] Chloride [Moles/Vol] 102 mmol/L Normal 98-107 [facility] Comment on above: Performed By: #### P HOS3, BMP3, HEMDF ####[facility] [place] [address] Potassium [Moles/Vol] 3.9 mmol/L Normal 3.5-5.1 [facility] Comment on above: Performed By: #### P HOS3, BMP3, HEMDF ####[facility] [place] [address] Sodium [Moles/Vol] 139 mmol/L Normal 135-145 [facility] Comment on above: Performed By: #### P HOS3, BMP3, HEMDF ####[address] [place] [address] Anion gap [Moles/Vol] 8 mmol/L 3 - 13 mmol/L [facility] Calcium [Mass/Vol] 8.9 mg/dL 8.4 - 10. 4 mg/dL [facility] Chloride [Moles/Vol] 102 mmol/L 98 - 10 7 mmol/L [facility] CO2 [Moles/Vol] 29 mmol/L 22 - 30 mmol/L [facility] Creatinine [Mass/Vol] 2.11 mg/dL High 0.52 - 1.25 mg/dL [facility] EGFR IF NonAfrican Ecuadorean 22.7 mL/min Abnormal >60 [facility] GFR/1.73 sq M.predicted among blacks MDRD (S/P/Bld) [Vol rate/Area] 26.3 mL/min/{1.73_m2} Abnormal >60 [facility] Glucose [Mass/Vol] 229 mg/dL High 70 - 100 mg/dL [facility] Interpretation and review of laboratory results Abnormal [facility] Potassium [Moles/Vol] 3.9 mmol/L 3.5 - 5.1 mmol/L [facility] Sodium [Moles/Vol] 139 mmol/L 135 - 145 mmol/L [facility] Urea nitrogen (BldV) [Mass/Vol] 23 mg/dL High 9 - 20 mg/dL [facility] CBC auto differentialon 01-0 3-2022 Absolute Baso # 0.0 10*3/uL 0.0 - [...] [#/Vol] 3.9 10*3/uL 3.6 - 10.7 10*3/uL [facility] Glucose,Bedsideon 04-04-2021 Glucose [Mass/Vol] 194 mg/dL High 70-100 [facility] Comment on above: Result Comment: Test performed by glucose meter. Results may be 10%-15% lowerthan serum/plasma values. (CLIA ID [id number]) Performed By: #### B GLU ####[facility] [employer] [id number] [place] [address] Glucose [Mass/Vol] 153 mg/dL High 70-100 [facility] Comment on above: Result Comment: Test performed by glucose meter. Results may be 10%-15% lowerthan serum/plasma values. (CLIA ID [id number]) Performed By: #### B GLU ####[facility] [employer] [id number] [place] [address] Glucose [Mass/Vol] 195 mg/dL High 70-100 [facility] Comment on above: Result Comment: Test performed by glucose meter. Results may be 10%-15% lowerthan serum/plasma values. (CLIA ID [id number]) Performed By: #### B GLU ####[facility] [employer] [id number] [place] [address] Hemogram w/ Autodiffon 04-04 Abs Baso Cnt 0.0 10*3/uL Normal 0.0-0.2 [facility] Comment on above: Performed By: #### P HOS3, BMP3, HEMDF ####[facility] [employer] [id number] [place] [address] Abs Neutrophile Cnt 2.0 10*3/uL Normal 1.8-7.0 [facility] Comment on above: Performed By: #### P HOS3, BMP3, HEMDF ####[facility] [employer] [id number] [place] [address] Basophils/100 WBC (Bld) 0.8 % Normal 0.0-2.0 [facility] Comment on above: Performed By: #### P HOS3, BMP3, HEMDF ####[address] Eosinophils (Bld) [#/Vol] 0.2 10*3/uL Normal 0.0-0.5 [facility] Comment on above: Performed By: #### P HOS3, BMP3, HEMDF ####[address] Eosinophils/100 WBC (Bld) 6.2 % High 1.0-6.0 [facility] Comment on above: Performed By: #### P HOS3, BMP3, HEMDF ####[address] Erythrocyte distribution width (RBC) [Ratio] 19.0 % High 11.5-14.5 [facility] Comment on above: Performed By: #### P HOS3, BMP3, HEMDF ####[address] Granulocytes/100 WBC (Bld) 51.8 % Normal 40.0-80.0 [facility] Comment on above: Performed By: #### P HOS3, BMP3, HEMDF ####[address] Hematocrit (Bld) [Volume fraction] 26.7 % Low 35.0-47.0 [facility] Comment on above: Performed By: #### P HOS3, BMP3, HEMDF ####[address] Hemoglobin (Bld) [Mass/Vol] 8.4 g/dL Low 11.7-16.0 [facility] Comment on above: Performed By: #### P HOS3, BMP3, HEMDF ####[address] Lymphocytes (Bld) [#/Vol] 1.2 10*3/uL Normal 1.0-4.3 [facility] Comment on above: Performed By: #### P HOS3, BMP3, HEMDF ####[address] [place], [place] Lymphocytes/100 WBC (Bld) 30.0 % Normal 20.0-40.0 [facility] Comment on above: Performed By: #### P HOS3, BMP3, HEMDF ####[address] MCH (RBC) [Entitic mass] 27.4 pg Normal 26.0-34.0 [facility] Comment on above: Performed By: #### P HOS3, BMP3, HEMDF ####[address] MCHC 31.3 % Low 32.0-36.0 [facility] Comment on above: Performed By: #### P HOS3, BMP3, HEMDF ####[address] MCV (RBC) [Entitic vol] 87.5 fL Normal 79.0-98.0 [facility] Comment on above: Performed By: #### P HOS3, BMP3, HEMDF ####[address] [place], [place] Monocytes (Bld) [#/Vol] 0.4 10*3/uL Normal 0.0-0.8 [facility] Comment on above: Performed By: #### P HOS3, BMP3, HEMDF ####[address] Monocytes/100 WBC (Bld) 11.2 % High 2.0-10.0 [facility] Comment on above: Performed By: #### P HOS3, BMP3, HEMDF ####[address] Platelet mean volume (Bld) [Entitic vol] 10.0 fL Normal 7.4-10.4 [facility] Comment on above: Performed By: #### P HOS3, BMP3, HEMDF ####[address] Platelets (Bld) [#/Vol] 237 10*3/uL Normal 140-440 [facility] Comment on above: Performed By: #### P HOS3, BMP3, HEMDF ####[address] [place], [place] RBC (Bld) [#/Vol] 3.05 10*6/uL Low 3.80-5.20 [facility] Comment on above: Performed By: #### P HOS3, BMP3, HEMDF ####[address] [place], [place] WBC (Bld) [#/Vol] 3.9 10*3/uL Normal 3.6-10.7 [facility] Comment on above: Performed By: #### P HOS3, BMP3, HEMDF ####[address] No Panel Informationon 04-04 [facility] POCT Glucoseon 04-04-2021 Glucose [Mass/Vol] 194 mg/dL High 70 - 100 mg/dL [facility] Interpretation and review of laboratory results Abnormal [facility] Glucose [Mass/Vol] 153 mg/dL High 70 - 100 mg/dL [facility] Interpretation and review of laboratory results Abnormal [facility] Glucose [Mass/Vol] 195 mg/dL High 70 - 100 mg/dL [facility] Interpretation and review of laboratory results Abnormal [facility] Phosphoruson 04-04-2021 Phosphate [Mass/Vol] 3.8 mg/dL Normal 2.5-4.5 [facility] Comment on above: Performed By: #### P HOS3, BMP3, HEMDF ####[address] [place], [place] Phosphate [Mass/Vol] 3.8 mg/dL 2.5 - 4 .5 mg/dL [facility] Basic Metabolic Panelon Anion gap [Moles/Vol] 5 mmol/L Normal 3-13 [facility] Comment on above: Performed By: #### H EMDF, BMP3, PHOS3 ####[facility] [employer] [id number] [place], [place] Calcium [Mass/Vol] 9.1 mg/dL Normal 8.4-10.4 [facility] Comment on above: Performed By: #### H EMDF, BMP3, PHOS3 ####[facility] [employer] [id number] [place], [place] CO2 [Moles/Vol] 31 mmol/L High 22-30 [facility] Comment on above: Performed By: #### H EMDF, BMP3, PHOS3 ####[facility] [employer] [id number] [place], [place] Glucose [Mass/Vol] 207 mg/dL High 70-100 [facility] Comment on above: Performed By: #### H EMDF, BMP3, PHOS3 ####[facility] [employer] [id number] [place], [place] Urea nitrogen [Mass/Vol] 21 mg/dL High 9-20 [facility] Comment on above: Performed By: #### H EMDF, BMP3, PHOS3 ####[facility] [employer] [id number] [place], [place] Creatinine [Mass/Vol] 2.03 mg/dL High 0.52-1.25 [facility] Comment on above: Performed By: #### H EMDF, BMP3, PHOS3 ####[facility] [employer] [id number] [place], [place] GFR/1.73 sq M.predicted among blacks MDRD (S/P/Bld) [Vol rate/Area] 27.6 mL/min/{1.73_m2} Abnormal >60 [facility] Comment on above: Performed By: #### H EMDF, BMP3, PHOS3 ####[facility] [employer] [id number] [place], [place] GFR/1.73 sq M.predicted among non-blacks MDRD (S/P/Bld) [Vol rate/Area] 23.8 mL/min/{1.73_m2} Abnormal >60 [facility] Comment on above: Result Comment: KDIG O guidelines provide the following GFR categories:Stage GFR(ml/min/1.73 m2) TermsG1 >=90 Normal or highG2 60-89 Mildly decreased*G3a 45-59 Mildly to moderately veddtozeoM3t 30-44 Moderately to severely decreasedG4 15-29 Severely [...] tubular creatinine secretion. Performed By: #### H EDILBERTO NGO3, PHOS3 ####[address] [place], [place] Potassium [Moles/Vol] 3.9 mmol/L Normal 3.5-5.1 [facility] Comment on above: Performed By: #### H EDILBERTO NGO3, PHOS3 ####[address] [place], [place] Sodium [Moles/Vol] 140 mmol/L Normal 135-145 [facility] Comment on above: Performed By: #### H HUBER BMP3, PHOS3 ####[address] [place], [place] Chloride [Moles/Vol] 104 mmol/L Normal 98-107 [facility] Comment on above: Performed By: #### H HUBER BMP3, PHOS3 ####[address] [place], [place] Anion gap [Moles/Vol] 5 mmol/L 3 - 13 mmol/L [facility] Calcium [Mass/Vol] 9.1 mg/dL 8.4 - 10. 4 mg/dL [facility] Chloride [Moles/Vol] 104 mmol/L 98 - 10 7 mmol/L [facility] CO2 [Moles/Vol] 31 mmol/L High 22 - 30 mmol/L [facility] Creatinine [Mass/Vol] 2.03 mg/dL High 0.52 - 1.25 mg/dL [facility] EGFR IF NonAfrican Ecuadorean 23.8 mL/min Abnormal >60 [facility] GFR/1.73 sq [...] [#/Vol] 4.0 10*3/uL 3.6 - 10.7 10*3/uL [facility] Glucose,Bedsideon 04-03-2021 Glucose [Mass/Vol] 195 mg/dL High 70-100 [facility] Comment on above: Result Comment: Test performed by glucose meter. Results may be 10%-15% lowerthan serum/plasma values. (CLIA ID [id number]) Performed By: #### B GLU ####[employer] [id number] [place] [address] Glucose [Mass/Vol] 198 mg/dL High 70-[address] [place] [address] Comment on above: Result Comment: Test performed by glucose meter. Results may be 10%-15% lowerthan serum/plasma values. (CLIA ID [id number]) Performed By: #### B GLU ####[employer] [id number] [place] [address] Glucose [Mass/Vol] 177 mg/dL High 70-100 [facility] Comment on above: Result Comment: Test performed by glucose meter. Results may be 10%-15% lowerthan serum/plasma values. (CLIA ID [id number]) Performed By: #### B GLU ####[address] Glucose [Mass/Vol] 193 mg/dL High 70-100 [facility] Comment on above: Result Comment: Test performed by glucose meter. Results may be 10%-15% lowerthan serum/plasma values. (CLIA ID [id number]) Performed By: #### B GLU ####[address] Hemogram w/ Autodiffon 04-03 Abs Baso Cnt 0.0 10*3/uL Normal 0.0-0.2 [facility] Comment on above: Performed By: #### H EDILBERTO NGO3, PHOS3 ####[address] Abs Neutrophile Cnt 2.3 10*3/uL Normal 1.8-7.0 [facility] Comment on above: Performed By: #### H EMDCarmelo BMP3, PHOS3 ####[address] Basophils/100 WBC (Bld) 1.0 % Normal 0.0-2.0 [facility] Comment on above: Performed By: #### H EMDCarmelo BMP3, PHOS3 ####[address] Eosinophils (Bld) [#/Vol] 0.2 10*3/uL Normal 0.0-0.5 [facility] Comment on above: Performed By: #### H EMDF, BMP3, PHOS3 ####[address] Eosinophils/100 WBC (Bld) 5.1 % Normal 1.0-6.0 [facility] Comment on above: Performed By: #### H EMDCarmelo, BMP3, PHOS3 ####[address] Erythrocyte distribution width (RBC) [Ratio] 18.5 % High 11.5-14.5 [facility] Comment on above: Performed By: #### H EMDF, BMP3, PHOS3 ####[address] Granulocytes/100 WBC (Bld) 56.7 % Normal 40.0-80.0 [facility] Comment on above: Performed By: #### H EMDF, BMP3, PHOS3 ####[address] [place], [place] Hematocrit (Bld) [Volume fraction] 25.9 % Low 35.0-47.0 [facility] Comment on above: Performed By: #### H EMDF, BMP3, PHOS3 ####[address] Hemoglobin (Bld) [Mass/Vol] 8.2 g/dL Low 11.7-16.0 [facility] Comment on above: Performed By: #### H EMDF, BMP3, PHOS3 ####[address] Lymphocytes (Bld) [#/Vol] 1.1 10*3/uL Normal 1.0-4.3 [facility] Comment on above: Performed By: #### H EMDF, BMP3, PHOS3 ####[address] Lymphocytes/100 WBC (Bld) 26.8 % Normal 20.0-40.0 [facility] Comment on above: Performed By: #### H EMDF, BMP3, PHOS3 ####[address] MCH (RBC) [Entitic mass] 27.6 pg Normal 26.0-34.0 [facility] Comment on above: Performed By: #### H EMDF, BMP3, PHOS3 ####[address] MCHC 31.6 % Low 32.0-36.0 [facility] Comment on above: Performed By: #### H EMDF, BMP3, PHOS3 ####[address] MCV (RBC) [Entitic vol] 87.5 fL Normal 79.0-98.0 [facility] Comment on above: Performed By: #### H EMDF, BMP3, PHOS3 ####[address] Monocytes (Bld) [#/Vol] 0.4 10*3/uL Normal 0.0-0.8 [facility] Comment on above: Performed By: #### H EMDF, BMP3, PHOS3 ####[address] Monocytes/100 WBC (Bld) 10.4 % High 2.0-10.0 [facility] Comment on above: Performed By: #### H EMDF, BMP3, PHOS3 ####[address] Platelet mean volume (Bld) [Entitic vol] 9.7 fL Normal 7.4-10.4 [facility] Comment on above: Performed By: #### H EMDF, BMP3, PHOS3 ####[address] Platelets (Bld) [#/Vol] 225 10*3/uL Normal 140-440 [facility] Comment on above: Performed By: #### H EMDF, BMP3, PHOS3 ####[address] RBC (Bld) [#/Vol] 2.96 10*6/uL Low 3.80-5.20 [facility] Comment on above: Performed By: #### H EMDF, BMP3, PHOS3 ####[address] WBC (Bld) [#/Vol] 4.0 10*3/uL Normal 3.6-10.7 [facility] Comment on above: Performed By: #### H EMDF, BMP3, PHOS3 ####[address] [address] No Panel Informationon 04-03 [facility] POCT Glucoseon 04-03-2021 Glucose [Mass/Vol] 195 mg/dL High 70 - 100 mg/dL [facility] Interpretation and review of laboratory results Abnormal [facility] Glucose [Mass/Vol] 198 mg/dL High 70 - 100 mg/dL [facility] Interpretation and review of laboratory results Abnormal [facility] Glucose [Mass/Vol] 177 mg/dL High 70 - 100 mg/dL [facility] Interpretation and review of laboratory results Abnormal [facility] Glucose [Mass/Vol] 193 mg/dL High 70 - 100 mg/dL [facility] Interpretation and review of laboratory results Abnormal [facility] Phosphoruson 04-03-2021 Phosphate [Mass/Vol] 3.6 mg/dL Normal 2.5-4.5 [facility] Comment on above: Performed By: #### H EMDF, BMP3, PHOS3 ####[facility] [employer] [id number] [place] [address] Phosphate [Mass/Vol] 3.6 mg/dL 2.5 - 4 .5 mg/dL [facility] Basic Metabolic Panelon Anion gap [Moles/Vol] 7 mmol/L Normal 3-13 [facility] Comment on above: Performed By: #### B MP3, PHOS3, HEMDF ####[facility] [employer] [id number] [place] [address] Calcium [Mass/Vol] 8.9 mg/dL Normal 8.4-10.4 [facility] Comment on above: Performed By: #### B MP3, PHOS3, HEMDF ####[facility] [employer] [place] [address] CO2 [Moles/Vol] 30 mmol/L Normal 22-30 [facility] Comment on above: Performed By: #### B MP3, PHOS3, HEMDF ####[facility] [employer] [address] [place] [address] Glucose [Mass/Vol] 210 mg/dL High 70-100 [facility] Comment on above: Performed By: #### B MP3, PHOS3, HEMDF ####[facility] [employer] [id number] [place], [place] Urea nitrogen [Mass/Vol] 16 mg/dL Normal 9-20 [facility] Comment on above: Performed By: #### B MP3, PHOS3, HEMDF ####[facility] [employer] [id number] [place], [place] Creatinine [Mass/Vol] 1.95 mg/dL High 0.52-1.25 [facility] Comment on above: Performed By: #### B MP3, PHOS3, HEMDF ####[facility] [employer] [id number] [place], [place] GFR/1.73 sq M.predicted among blacks MDRD (S/P/Bld) [Vol rate/Area] 29.0 mL/min/{1.73_m2} Abnormal >60 [facility] Comment on above: Performed By: #### B MP3, PHOS3, HEMDF ####[facility] [employer] [id number] [place] [address] GFR/1.73 sq M.predicted among non-blacks MDRD (S/P/Bld) [Vol rate/Area] 25.0 mL/min/{1.73_m2} Abnormal >60 [facility] Comment on above: Result Comment: KDIG O guidelines provide the following GFR categories:Stage GFR(ml/min/1.73 m2) TermsG1 >=90 Normal or highG2 60-89 Mildly decreased*G3a 45-59 Mildly to moderately oyxopcwotK2g 30-44 Moderately to severely decreasedG4 15-29 Severely [...] Performed By: #### B MP3, PHOS3, HEMDF ####[facility] [employer] [id number] [place], [place] Potassium [Moles/Vol] 3.8 mmol/L Normal 3.5-5.1 [facility] Comment on above: Performed By: #### B MP3, PHOS3, HEMDF ####[facility] [place], [place] Sodium [Moles/Vol] 140 mmol/L Normal 135-145 [facility] Comment on above: Performed By: #### B MP3, PHOS3, HEMDF ####[facility] [employer] [id number] [place], [place] Chloride [Moles/Vol] 102 mmol/L Normal 98-107 [facility] Comment on above: Performed By: #### B MP3, PHOS3, HEMDF ####[facility] [employer] [id number] [place], [place] Anion gap [Moles/Vol] 7 mmol/L 3 - 13 mmol/L [facility] Calcium [Mass/Vol] 8.9 mg/dL 8.4 - 10. 4 mg/dL [facility] Chloride [Moles/Vol] 102 mmol/L 98 - 10 7 mmol/L [facility] CO2 [Moles/Vol] 30 mmol/L 22 - 30 mmol/L [facility] Creatinine [Mass/Vol] 1.95 mg/dL High 0.52 - 1.25 mg/dL [facility] EGFR IF NonAfrican Ecuadorean 25.0 mL/min Abnormal >60 [facility] GFR/1.73 sq M.predicted among blacks MDRD (S/P/Bld) [Vol rate/Area] 29.0 mL/min/{1.73_m2} Abnormal >60 [facility] Glucose [Mass/Vol] 210 mg/dL High 70 - 100 mg/dL [facility] Interpretation and review of laboratory results [...] 10*6/uL Low 3.80 - 5.2 0 10*6/uL [facility] WBC (Bld) [#/Vol] 4.4 10*3/uL 3.6 - 10.7 10*3/uL [facility] Glucose,Bedsideon 04-02-2021 Glucose [Mass/Vol] 227 mg/dL High [address] [facility] Comment on above: Result Comment: Test performed by glucose meter. Results may be 10%-15% lowerthan serum/plasma values. (CLIA ID [id number]) Performed By: #### B GLU ####[employer] [place] [address] Glucose [Mass/Vol] 222 mg/dL High [address] [facility] Comment on above: Result Comment: Test performed by glucose meter. Results may be 10%-15% lowerthan serum/plasma values. (CLIA ID [id number]) Performed By: #### B GLU ####[employer] [place] [address] Glucose [Mass/Vol] 209 mg/dL High [address] Comment on above: Result Comment: Test performed by glucose meter. Results may be 10%-15% lowerthan serum/plasma values. (CLIA ID [id number]) Performed By: #### B GLU ####[employer] [place] [address] Glucose [Mass/Vol] 170 mg/dL High 70-[address] [place] [address] Comment on above: Result Comment: Test performed by glucose meter. Results may be 10%-15% lowerthan serum/plasma values. (CLIA ID [id number]) Performed By: #### B GLU ####[employer] [place] [address] Hemogram w/ Autodiffon 04-02 Abs Baso Cnt 0.0 10*3/uL Normal 0.0-0.2 [facility] Comment on above: Performed By: #### B MP3, PHOS3, HEMDF ####[address] [place], [place] Abs Neutrophile Cnt 2.6 10*3/uL Normal 1.8-7.0 [facility] Comment on above: Performed By: #### B MP3, PHOS3, HEMDF ####[address] [place], [place] Basophils/100 WBC (Bld) 1.0 % Normal 0.0-2.0 [facility] Comment on above: Performed By: #### B MP3, PHOS3, HEMDF ####[address] [place], [place] Eosinophils (Bld) [#/Vol] 0.2 10*3/uL Normal 0.0-0.5 [facility] Comment on above: Performed By: #### B MP3, PHOS3, HEMDF ####[address] [place], [place] Eosinophils/100 WBC (Bld) 5.0 % Normal 1.0-6.0 [facility] Comment on above: Performed By: #### B MP3, PHOS3, HEMDF ####[address] [place], [place] Erythrocyte distribution width (RBC) [Ratio] 18.5 % High 11.5-14.5 [facility] Comment on above: Performed By: #### B MP3, PHOS3, HEMDF ####[address] [place], [place] Granulocytes/100 WBC (Bld) 59.9 % Normal 40.0-80.0 [facility] Comment on above: Performed By: #### B MP3, PHOS3, HEMDF ####[address] [place], [place] Hematocrit (Bld) [Volume fraction] 25.6 % Low 35.0-47.0 [facility] Comment on above: Performed By: #### B MP3, PHOS3, HEMDF ####[address] [place], [place] Hemoglobin (Bld) [Mass/Vol] 8.1 g/dL Low 11.7-16.0 [facility] Comment on above: Performed By: #### B MP3, PHOS3, HEMDF ####[address] [place], [place] Lymphocytes (Bld) [#/Vol] 1.0 10*3/uL Normal 1.0-4.3 [facility] Comment on above: Performed By: #### B MP3, PHOS3, HEMDF ####[id number] [place], [place] Lymphocytes/100 WBC (Bld) 23.7 % Normal 20.0-40.0 [facility] Comment on above: Performed By: #### B MP3, PHOS3, HEMDF ####[address] MCH (RBC) [Entitic mass] 27.7 pg Normal 26.0-34.0 [facility] Comment on above: Performed By: #### B MP3, PHOS3, HEMDF ####[address] MCHC 31.7 % Low 32.0-36.0 [facility] Comment on above: Performed By: #### B MP3, PHOS3, HEMDF ####[address] MCV (RBC) [Entitic vol] 87.6 fL Normal 79.0-98.0 [facility] Comment on above: Performed By: #### B MP3, PHOS3, HEMDF ####[address] Monocytes (Bld) [#/Vol] 0.5 10*3/uL Normal 0.0-0.8 [facility] Comment on above: Performed By: #### B MP3, PHOS3, HEMDF ####[address] [place], [place] Monocytes/100 WBC (Bld) 10.4 % High 2.0-10.0 [facility] Comment on above: Performed By: #### B MP3, PHOS3, HEMDF ####[facility] [employer] [id number] [place], [place] Platelet mean volume (Bld) [Entitic vol] 9.8 fL Normal 7.4-10.4 [facility] Comment on above: Performed By: #### B MP3, PHOS3, HEMDF ####[address] [place], [place] Platelets (Bld) [#/Vol] 217 10*3/uL Normal 140-440 [facility] Comment on above: Performed By: #### B MP3, PHOS3, HEMDF ####[address] [place], [place] RBC (Bld) [#/Vol] 2.92 10*6/uL Low 3.80-5.20 [facility] Comment on above: Performed By: #### Alvaro MP3, PHOS3, HEMDF ####[address] [place], [place] WBC (Bld) [#/Vol] 4.4 10*3/uL Normal 3.6-10.7 [facility] Comment on above: Performed By: #### Alvaro MP3, PHOS3, HEMDF ####[address] [place], [place] No Panel Informationon 04-02 [facility] PO[facility] Glucoseon 04-02-2021 Glucose [Mass/Vol] 227 mg/dL High 70 - 100 mg/dL [facility] Interpretation and review of laboratory results Abnormal [facility] Glucose [Mass/Vol] 222 mg/dL High 70 - 100 mg/dL [facility] Interpretation and review of laboratory results Abnormal [facility] Glucose [Mass/Vol] 209 mg/dL High 70 - 100 mg/dL [facility] Interpretation and review of laboratory results Abnormal [facility] Glucose [Mass/Vol] 170 mg/dL High 70 - 100 mg/dL [facility] Interpretation and review of laboratory results Abnormal [facility] Phosphoruson 04-02-2021 Phosphate [Mass/Vol] 3.6 mg/dL Normal 2.5-4.5 [facility] Comment on above: Performed By: #### B MP3, PHOS3, HEMDF ####[address] [place] [address] Phosphate [Mass/Vol] 3.6 mg/dL 2.5 - 4 .5 mg/dL [facility] Basic Metabolic Panelon 12-3 Calcium [Mass/Vol] 8.8 mg/dL Normal 8.4-10.4 [facility] Comment on above: Performed By: #### H EMDF, PHOS3, BMP3 ####[address] [place] [address] Anion gap [Moles/Vol] 8 mmol/L Normal 3-13 [facility] Comment on above: Performed By: #### H EMDF, PHOS3, BMP3 ####[address] [place] [address] CO2 [Moles/Vol] 29 mmol/L Normal 22-30 [facility] Comment on above: Performed By: #### H EMDF, PHOS3, BMP3 ####[address] [place] [address] Creatinine [Mass/Vol] 1.72 mg/dL High 0.52-1.25 [facility] Comment on above: Performed By: #### H EMDF, PHOS3, BMP3 ####[address] [place] [address] GFR/1.73 sq M.predicted among blacks MDRD (S/P/Bld) [Vol rate/Area] 33.7 mL/min/{1.73_m2} Abnormal >60 [facility] Comment on above: Performed By: #### H EMDF, PHOS3, BMP3 ####[address] [place] [address] GFR/1.73 sq M.predicted among non-blacks MDRD (S/P/Bld) [Vol rate/Area] 29.1 mL/min/{1.73_m2} Abnormal >60 [facility] Comment on above: Result Comment: KDIG O guidelines provide the following GFR categories:Stage GFR(ml/min/1.73 m2) TermsG1 >=90 Normal or highG2 60-89 Mildly decreased*G3a 45-59 Mildly to moderately ytxjyqqapJ2w 30-44 Moderately to severely decreasedG4 15-29 Severely [...] Performed By: #### H EMDF, PHOS3, BMP3 ####[address] [place], [place] Glucose [Mass/Vol] 178 mg/dL High 70-100 [facility] Comment on above: Performed By: #### H EMDF, PHOS3, BMP3 ####[address] Urea nitrogen [Mass/Vol] 11 mg/dL Normal 9-20 [facility] Comment on above: Performed By: #### H EMDF, PHOS3, BMP3 ####[address] [place], [place] Chloride [Moles/Vol] 101 mmol/L Normal 98-107 [facility] Comment on above: Performed By: #### H EMDF, PHOS3, BMP3 ####[address] [place], [place] Potassium [Moles/Vol] 4.2 mmol/L Normal 3.5-5.1 [facility] Comment on above: Performed By: #### H EMDF, PHOS3, BMP3 ####[address] [address] Sodium [Moles/Vol] 138 mmol/L Normal 135-145 [facility] Comment on above: Performed By: #### H EMDF, PHOS3, BMP3 ####[facility] [address] [place] [address] Anion gap [Moles/Vol] 8 mmol/L 3 - 13 mmol/L [facility] Calcium [Mass/Vol] 8.8 mg/dL 8.4 - 10. 4 mg/dL [facility] Chloride [Moles/Vol] 101 mmol/L 98 - 10 7 mmol/L [facility] CO2 [Moles/Vol] 29 mmol/L 22 - 30 mmol/L [facility] Creatinine [Mass/Vol] 1.72 mg/dL High 0.52 - 1.25 mg/dL [facility] EGFR IF NonAfrican Ecuadorean 29.1 mL/min Abnormal >60 [facility] GFR/1.73 sq [...] 8.2 g/dL Low 11.7 - 16.0 g/dL [facility] Interpretation and review of laboratory results [...] [#/Vol] 4.6 10*3/uL 3.6 - 10.7 10*3/uL [facility] Glucose,Bedsideon 04-01-2021 Glucose [Mass/Vol] 226 mg/dL High 70-100 [facility] Comment on above: Result Comment: Test performed by glucose meter. Results may be 10%-15% lowerthan serum/plasma values. (CLIA ID [id number]) Performed By: #### B GLU ####[address] [place] [address] Glucose [Mass/Vol] 203 mg/dL High 70-100 [facility] Comment on above: Result Comment: Test performed by glucose meter. Results may be 10%-15% lowerthan serum/plasma values. (CLIA ID [id number]) Performed By: #### B GLU ####[facility] [employer] [id number] [place] [address] Glucose [Mass/Vol] 189 mg/dL High 70-100 [facility] Comment on above: Result Comment: Test performed by glucose meter. Results may be 10%-15% lowerthan serum/plasma values. (CLIA ID [id number]) Performed By: #### B GLU ####[facility] [employer] [id number] [place] [address] Glucose [Mass/Vol] 172 mg/dL High 70-100 [facility] Comment on above: Result Comment: Test performed by glucose meter. Results may be 10%-15% lowerthan serum/plasma values. (CLIA ID [id number]) Performed By: #### B GLU ####[facility] [employer] [id number] [place] [address] Hemogram w/ Autodiffon 04-01 Abs Baso Cnt 0.0 10*3/uL Normal 0.0-0.2 [facility] Comment on above: Performed By: #### H EMDF, PHOS3, BMP3 ####[address] [place] [address] Abs Neutrophile Cnt 2.8 10*3/uL Normal 1.8-7.0 [facility] Comment on above: Performed By: #### H EMDF, PHOS3, BMP3 ####[facility] [employer] [id number] [place] [address] Basophils/100 WBC (Bld) 0.8 % Normal 0.0-2.0 [facility] Comment on above: Performed By: #### H EMDF, PHOS3, BMP3 ####[facility] [employer] [id number] [place] [address] Eosinophils (Bld) [#/Vol] 0.2 10*3/uL Normal 0.0-0.5 [facility] Comment on above: Performed By: #### H EMDF, PHOS3, BMP3 ####[address] Eosinophils/100 WBC (Bld) 4.2 % Normal 1.0-6.0 [facility] Comment on above: Performed By: #### H EMDCarmelo, PHOS3, BMP3 ####[address] Erythrocyte distribution width (RBC) [Ratio] 18.7 % High 11.5-14.5 [facility] Comment on above: Performed By: #### H EMDCarmelo, PHOS3, BMP3 ####[address] Granulocytes/100 WBC (Bld) 62.1 % Normal 40.0-80.0 [facility] Comment on above: Performed By: #### H EMDaCrmelo, PHOS3, BMP3 ####[address] Hematocrit (Bld) [Volume fraction] 26.5 % Low 35.0-47.0 [facility] Comment on above: Performed By: #### H EMDF, PHOS3, BMP3 ####[address] Hemoglobin (Bld) [Mass/Vol] 8.2 g/dL Low 11.7-16.0 [facility] Comment on above: Performed By: #### H EMDF, PHOS3, BMP3 ####[address] Lymphocytes (Bld) [#/Vol] 1.1 10*3/uL Normal 1.0-4.3 [facility] Comment on above: Performed By: #### H EMDF, PHOS3, BMP3 ####[address] Lymphocytes/100 WBC (Bld) 23.4 % Normal 20.0-40.0 [facility] Comment on above: Performed By: #### H EMDF, PHOS3, BMP3 ####[address] [place], [place] MCH (RBC) [Entitic mass] 27.6 pg Normal 26.0-34.0 [facility] Comment on above: Performed By: #### H EMDF, PHOS3, BMP3 ####[address] [place], [place] MCHC 31.1 % Low 32.0-36.0 [facility] Comment on above: Performed By: #### H EMDF, PHOS3, BMP3 ####[address] [place], [place] MCV (RBC) [Entitic vol] 88.7 fL Normal 79.0-98.0 [facility] Comment on above: Performed By: #### H EMDF, PHOS3, BMP3 ####[address] [place], [place] Monocytes (Bld) [#/Vol] 0.4 10*3/uL Normal 0.0-0.8 [facility] Comment on above: Performed By: #### H EMDF, PHOS3, BMP3 ####[address] [place], [place] Monocytes/100 WBC (Bld) 9.5 % Normal 2.0-10.0 [facility] Comment on above: Performed By: #### H EMDF, PHOS3, BMP3 ####[address] [place], [place] Platelet mean volume (Bld) [Entitic vol] 9.9 fL Normal 7.4-10.4 [facility] Comment on above: Performed By: #### H EMDF, PHOS3, BMP3 ####[address] [place], [place] Platelets (Bld) [#/Vol] 214 10*3/uL Normal 140-440 [facility] Comment on above: Performed By: #### H EMDF, PHOS3, BMP3 ####[address] RBC (Bld) [#/Vol] 2.98 10*6/uL Low 3.80-5.20 [facility] Comment on above: Performed By: #### H EMDF, PHOS3, BMP3 ####[address] [place], [place] WBC (Bld) [#/Vol] 4.6 10*3/uL Normal 3.6-10.7 [facility] Comment on above: Performed By: #### H EMDF, PHOS3, BMP3 ####[address] [place], [place] No Panel Informationon 04-01 [facility] POCT Glucoseon 04-01-2021 Glucose [Mass/Vol] 226 mg/dL High 70 - 100 mg/dL [facility] Interpretation and review of laboratory results Abnormal [facility] Glucose [Mass/Vol] 189 mg/dL High 70 - 100 mg/dL [facility] Interpretation and review of laboratory results Abnormal [facility] Glucose [Mass/Vol] 172 mg/dL High 70 - 100 mg/dL [facility] Interpretation and review of laboratory results Abnormal [facility] POCT GlucoseOrdered By: Aliya Bowen on 04-01-2021 Glucose [Mass/Vol] 203 mg/dL High 70 - 100 mg/dL [facility] Interpretation and review of laboratory results Abnormal [facility] Phosphoruson 04-01-2021 Phosphate [Mass/Vol] 3.4 mg/dL Normal 2.5-4.5 [facility] Comment on above: Performed By: #### H EMDF, PHOS3, BMP3 ####[address] [place], [place] Phosphate [Mass/Vol] 3.4 mg/dL 2.5 - 4 .5 mg/dL [facility] Basic Metabolic Panelon 03-04 Calcium [Mass/Vol] 8.8 mg/dL Normal 8.4-10.4 [facility] Comment on above: Performed By: #### P HOS3, BMP3, HEMDF ####[facility] [employer] [id number] [place], [place] Anion gap [Moles/Vol] 8 mmol/L Normal 3-13 [facility] Comment on above: Performed By: #### P HOS3, BMP3, HEMDF ####[facility] [employer] [id number] [place], [place] CO2 [Moles/Vol] 29 mmol/L Normal 22-30 [facility] Comment on above: Performed By: #### P HOS3, BMP3, HEMDF ####[facility] [employer] [id number] [place], [place] Creatinine [Mass/Vol] 2.30 mg/dL High 0.52-1.25 [facility] Comment on above: Performed By: #### P HOS3, BMP3, HEMDF ####[facility] [employer] [id number] [place], [place] GFR/1.73 sq M.predicted among blacks MDRD (S/P/Bld) [Vol rate/Area] 23.7 mL/min/{1.73_m2} Abnormal >60 [facility] Comment on above: Performed By: #### P HOS3, BMP3, HEMDF ####[facility] [employer] [id number] [place], [place] GFR/1.73 sq M.predicted among non-blacks MDRD (S/P/Bld) [Vol rate/Area] 20.5 mL/min/{1.73_m2} Abnormal >60 [facility] Comment on above: Result Comment: KDIG O guidelines provide the following GFR categories:Stage GFR(ml/min/1.73 m2) TermsG1 >=90 Normal or highG2 60-89 Mildly decreased*G3a 45-59 Mildly to moderately [id number] 30-44 Moderately to severely decreasedG4 15-29 Severely [...] Performed By: #### P HOS3, BMP3, HEMDF ####[address] [place] [address] Glucose [Mass/Vol] 185 mg/dL High 70-100 [facility] Comment on above: Performed By: #### P HOS3, BMP3, HEMDF ####[address] [place] [address] Urea nitrogen [Mass/Vol] 16 mg/dL Normal 9-20 [facility] Comment on above: Performed By: #### P HOS3, BMP3, HEMDF ####[address] [place] [address] Chloride [Moles/Vol] 102 mmol/L Normal 98-107 [facility] Comment on above: Performed By: #### P HOS3, BMP3, HEMDF ####[address] [place] [address] Potassium [Moles/Vol] 4.0 mmol/L Normal 3.5-5.1 [facility] Comment on above: Performed By: #### P HOS3, BMP3, HEMDF ####[address] [place] [address] Sodium [Moles/Vol] 139 mmol/L Normal 135-145 [facility] Comment on above: Performed By: #### P HOS3, BMP3, HEMDF ####[address] [place] [address] Anion gap [Moles/Vol] 8 mmol/L 3 - 13 mmol/L [facility] Calcium [Mass/Vol] 8.8 mg/dL 8.4 - 10. 4 mg/dL [facility] Chloride [Moles/Vol] 102 mmol/L 98 - 10 7 mmol/L [facility] CO2 [Moles/Vol] 29 mmol/L 22 - 30 mmol/L [facility] Creatinine [Mass/Vol] 2.3 mg/dL High 0.52 - 1.25 mg/dL [facility] GFR/1.73 sq M.predicted among blacks MDRD (S/P/Bld) [Vol rate/Area] 23.7 mL/min/{1.73_m2} Abnormal >60 [facility] Glucose [Mass/Vol] 185 mg/dL High 70 - 100 mg/dL [facility] Potassium [Moles/Vol] 4.0 mmol/L 3.5 - 5.1 mmol/L [facility] Sodium [Moles/Vol] 139 mmol/L 135 - 145 mmol/L [facility] Glucose,Bedsideon 03-31-2021 Glucose [Mass/Vol] 178 mg/dL High 70-100 [facility] Comment on above: Result Comment: Test performed by glucose meter. Results may be 10%-15% lowerthan serum/plasma values. (CLIA ID [id number]) Performed By: #### B GLU ####[address] [place] [address] Glucose [Mass/Vol] 198 mg/dL High 70-100 [facility] Comment on above: Result Comment: Test performed by glucose meter. Results may be 10%-15% lowerthan serum/plasma values. (CLIA ID [id number]) Performed By: #### B GLU ####[address] [place] [address] Glucose [Mass/Vol] 143 mg/dL High 70-100 [facility] Comment on above: Result Comment: Test performed by glucose meter. Results may be 10%-15% lowerthan serum/plasma values. (CLIA ID [id number]) Performed By: #### B GLU ####[employer] [id number] [place] [address] Glucose [Mass/Vol] 165 mg/dL High 70-100 [facility] Comment on above: Result Comment: Test performed by glucose meter. Results may be 10%-15% lowerthan serum/plasma values. (CLIA ID [id number]) Performed By: #### B GLU ####[address] [place] [address] Hemogram w/ Autodiffon 03-31 Abs Baso Cnt 0.0 10*3/uL Normal 0.0-0.2 [facility] Comment on above: Performed By: #### P HOS3, BMP3, HEMDF ####[address] Abs Neutrophile Cnt 3.0 10*3/uL Normal 1.8-7.0 [facility] Comment on above: Performed By: #### P HOS3, BMP3, HEMDF ####[address] Basophils/100 WBC (Bld) 0.9 % Normal 0.0-2.0 [facility] Comment on above: Performed By: #### P HOS3, BMP3, HEMDF ####[address] Eosinophils (Bld) [#/Vol] 0.2 10*3/uL Normal 0.0-0.5 [facility] Comment on above: Performed By: #### P HOS3, BMP3, HEMDF ####[address] Eosinophils/100 WBC (Bld) 4.1 % Normal 1.0-6.0 [facility] Comment on above: Performed By: #### P HOS3, BMP3, HEMDF ####[address] Erythrocyte distribution width (RBC) [Ratio] 18.3 % High 11.5-14.5 [facility] Comment on above: Performed By: #### P HOS3, BMP3, HEMDF ####[address] Granulocytes/100 WBC (Bld) 63.8 % Normal 40.0-80.0 [facility] Comment on above: Performed By: #### P HOS3, BMP3, HEMDF ####[address] Hematocrit (Bld) [Volume fraction] 25.9 % Low 35.0-47.0 [facility] Comment on above: Performed By: #### P HOS3, BMP3, HEMDF ####[address] Hemoglobin (Bld) [Mass/Vol] 8.2 g/dL Low 11.7-16.0 [facility] Comment on above: Performed By: #### P HOS3, BMP3, HEMDF ####[address] Lymphocytes (Bld) [#/Vol] 1.0 10*3/uL Normal 1.0-4.3 [facility] Comment on above: Performed By: #### P HOS3, BMP3, HEMDF ####[address] Lymphocytes/100 WBC (Bld) 21.4 % Normal 20.0-40.0 [facility] Comment on above: Performed By: #### P HOS3, BMP3, HEMDF ####[address] MCH (RBC) [Entitic mass] 27.8 pg Normal 26.0-34.0 [facility] Comment on above: Performed By: #### P HOS3, BMP3, HEMDF ####[address] MCHC 31.7 % Low 32.0-36.0 [facility] Comment on above: Performed By: #### P HOS3, BMP3, HEMDF ####[address] MCV (RBC) [Entitic vol] 87.6 fL Normal 79.0-98.0 [facility] Comment on above: Performed By: #### P HOS3, BMP3, HEMDF ####[address] Monocytes (Bld) [#/Vol] 0.5 10*3/uL Normal 0.0-0.8 [facility] Comment on above: Performed By: #### P HOS3, BMP3, HEMDF ####[address] [place], [place] Monocytes/100 WBC (Bld) 9.8 % Normal 2.0-10.0 [facility] Comment on above: Performed By: #### P HOS3, BMP3, HEMDF ####[address] [place], [place] Platelet mean volume (Bld) [Entitic vol] 10.0 fL Normal 7.4-10.4 [facility] Comment on above: Performed By: #### P HOS3, BMP3, HEMDF ####[address] [place], [place] Platelets (Bld) [#/Vol] 219 10*3/uL Normal 140-440 [facility] Comment on above: Performed By: #### P HOS3, BMP3, HEMDF ####[address] RBC (Bld) [#/Vol] 2.95 10*6/uL Low 3.80-5.20 [facility] Comment on above: Performed By: #### P HOS3, BMP3, HEMDF ####[address] [place], [place] WBC (Bld) [#/Vol] 4.7 10*3/uL Normal 3.6-10.7 [facility] Comment on above: Performed By: #### P HOS3, BMP3, HEMDF ####[address] POCT Glucoseon 03-31-2021 Glucose [Mass/Vol] 178 mg/dL High 70 - 100 mg/dL [facility] Interpretation and review of laboratory results Abnormal [facility] Glucose [Mass/Vol] 198 mg/dL High 70 - 100 mg/dL [facility] Interpretation and review of laboratory results Abnormal [facility] Glucose [Mass/Vol] 143 mg/dL High 70 - 100 mg/dL [facility] Interpretation and review of laboratory results Abnormal [facility] Glucose [Mass/Vol] 165 mg/dL High 70 - 100 mg/dL [facility] Interpretation and review of laboratory results Abnormal [facility] Phosphoruson 03-31-2021 Phosphate [Mass/Vol] 4.0 mg/dL Normal 2.5-4.5 [facility] Comment on above: Performed By: #### P HOS3, BMP3, HEMDF ####[address] [place], [place] Phosphate [Mass/Vol] 4.0 mg/dL 2.5 - 4 .5 mg/dL [facility] Basic Metabolic Panelon 03-03 Calcium [Mass/Vol] 8.7 mg/dL Normal 8.4-10.4 [facility] Comment on above: Performed By: #### B MP3, PHOS3, HEMDF ####[facility] [employer] [id number] [place], [place] Glucose [Mass/Vol] 164 mg/dL High 70-100 [facility] Comment on above: Performed By: #### B MP3, PHOS3, HEMDF ####[facility] [employer] [place], [place] Urea nitrogen [Mass/Vol] 12 mg/dL Normal 9-20 [facility] Comment on above: Performed By: #### B MP3, PHOS3, HEMDF ####[facility] [employer] [id number] [place] [address] Anion gap [Moles/Vol] 9 mmol/L Normal 3-13 [facility] Comment on above: Performed By: #### B MP3, PHOS3, HEMDF ####[facility] [employer] [id number] [place] [address] CO2 [Moles/Vol] 28 mmol/L Normal 22-30 [facility] Comment on above: Performed By: #### B MP3, PHOS3, HEMDF ####[facility] [employer] [id number] [place] [address] Creatinine [Mass/Vol] 2.04 mg/dL High 0.52-1.25 [facility] Comment on above: Performed By: #### B MP3, PHOS3, HEMDF ####[address] [employer] [place], [place] GFR/1.73 sq M.predicted among blacks MDRD (S/P/Bld) [Vol rate/Area] 27.4 mL/min/{1.73_m2} Abnormal >60 [facility] Comment on above: Performed By: #### B MP3, PHOS3, HEMDF ####[address] [employer] [place] [address] GFR/1.73 sq M.predicted among non-blacks MDRD (S/P/Bld) [Vol rate/Area] 23.7 mL/min/{1.73_m2} Abnormal >60 [facility] Comment on above: Result Comment: KDIG O guidelines provide the following GFR categories:Stage GFR(ml/min/1.73 m2) TermsG1 >=90 Normal or highG2 60-89 Mildly decreased*G3a 45-59 Mildly to moderately kgowdondiJ1c 30-44 Moderately to severely decreasedG4 15-29 Severely [...] Performed By: #### B MP3, PHOS3, HEMDF ####[address] [employer] [place], [place] Potassium [Moles/Vol] 3.9 mmol/L Normal 3.5-5.1 [facility] Comment on above: Performed By: #### B MP3, PHOS3, HEMDF ####[employer] [place], [place] Chloride [Moles/Vol] 102 mmol/L Normal 98-107 [facility] Comment on above: Performed By: #### B MP3, PHOS3, HEMDF ####[facility] [employer] [id number] [place] [address] Sodium [Moles/Vol] 138 mmol/L Normal 135-145 [facility] Comment on above: Performed By: #### B MP3, PHOS3, HEMDF ####[facility] [employer] [id number] [place] [address] Glucose,Bedsideon 03-30-2021 Glucose [Mass/Vol] 222 mg/dL High 70-100 [facility] Comment on above: Result Comment: Test performed by glucose meter. Results may be 10%-15% lowerthan serum/plasma values. (CLIA ID [id number]) Performed By: #### B GLU ####[facility] [employer] [id number] [place] [address] Glucose [Mass/Vol] 175 mg/dL High 70-100 [facility] Comment on above: Result Comment: Test performed by glucose meter. Results may be 10%-15% lowerthan serum/plasma values. (CLIA ID [id number]) Performed By: #### B GLU ####[facility] [employer] [id number] [place] [address] Glucose [Mass/Vol] 197 mg/dL High 70-100 [facility] Comment on above: Result Comment: Test performed by glucose meter. Results may be 10%-15% lowerthan serum/plasma values. (CLIA ID [id number]) Performed By: #### B GLU ####[facility] [employer] [address] [place] [address] Glucose [Mass/Vol] 152 mg/dL High 70-100 [facility] Comment on above: Result Comment: Test performed by glucose meter. Results may be 10%-15% lowerthan serum/plasma values. (CLIA ID [id number]) Performed By: #### B GLU ####[facility] [employer] [id number] [place] [address] Hemogram w/ Autodiffon 03-30 Abs Baso Cnt 0.1 10*3/uL Normal 0.0-0.2 [facility] Comment on above: Performed By: #### B MP3, PHOS3, HEMDF ####[id number] [place], [place] Abs Neutrophile Cnt 3.8 10*3/uL Normal 1.8-7.0 [facility] Comment on above: Performed By: #### B MP3, PHOS3, HEMDF ####[address] Basophils/100 WBC (Bld) 1.0 % Normal 0.0-2.0 [facility] Comment on above: Performed By: #### B MP3, PHOS3, HEMDF ####[address] Eosinophils (Bld) [#/Vol] 0.2 10*3/uL Normal 0.0-0.5 [facility] Comment on above: Performed By: #### B MP3, PHOS3, HEMDF ####[address] Eosinophils/100 WBC (Bld) 3.7 % Normal 1.0-6.0 [facility] Comment on above: Performed By: #### B MP3, PHOS3, HEMDF ####[address] Erythrocyte distribution width (RBC) [Ratio] 18.3 % High 11.5-14.5 [facility] Comment on above: Performed By: #### B MP3, PHOS3, HEMDF ####[address] Granulocytes/100 WBC (Bld) 67.8 % Normal 40.0-80.0 [facility] Comment on above: Performed By: #### B MP3, PHOS3, HEMDF ####[address] [place], [place] Hematocrit (Bld) [Volume fraction] 26.6 % Low 35.0-47.0 [facility] Comment on above: Performed By: #### B MP3, PHOS3, HEMDF ####[address] Hemoglobin (Bld) [Mass/Vol] 8.4 g/dL Low 11.7-16.0 [facility] Comment on above: Performed By: #### B MP3, PHOS3, HEMDF ####[address] Lymphocytes (Bld) [#/Vol] 1.1 10*3/uL Normal 1.0-4.3 [facility] Comment on above: Performed By: #### B MP3, PHOS3, HEMDF ####[address] [place], [place] Lymphocytes/100 WBC (Bld) 18.9 % Low 20.0-40.0 [facility] Comment on above: Performed By: #### B MP3, PHOS3, HEMDF ####[address] MCH (RBC) [Entitic mass] 28.0 pg Normal 26.0-34.0 [facility] Comment on above: Performed By: #### B MP3, PHOS3, HEMDF ####[address] MCHC 31.6 % Low 32.0-36.0 [facility] Comment on above: Performed By: #### B MP3, PHOS3, HEMDF ####[address] MCV (RBC) [Entitic vol] 88.6 fL Normal 79.0-98.0 [facility] Comment on above: Performed By: #### B MP3, PHOS3, HEMDF ####[address] Monocytes (Bld) [#/Vol] 0.5 10*3/uL Normal 0.0-0.8 [facility] Comment on above: Performed By: #### B MP3, PHOS3, HEMDF ####[address] [place], [place] Monocytes/100 WBC (Bld) 8.6 % Normal 2.0-10.0 [facility] Comment on above: Performed By: #### B MP3, PHOS3, HEMDF ####[address] [place], [place] Platelet mean volume (Bld) [Entitic vol] 9.7 fL Normal 7.4-10.4 [facility] Comment on above: Performed By: #### B MP3, PHOS3, HEMDF ####[address] [place], [place] Platelets (Bld) [#/Vol] 219 10*3/uL Normal 140-440 [facility] Comment on above: Performed By: #### B MP3, PHOS3, HEMDF ####[address] [place], [place] RBC (Bld) [#/Vol] 3.01 10*6/uL Low 3.80-5.20 [facility] Comment on above: Performed By: #### B MP3, PHOS3, HEMDF ####[address] [place], [place] WBC (Bld) [#/Vol] 5.6 10*3/uL Normal 3.6-10.7 [facility] Comment on above: Performed By: #### B MP3, PHOS3, HEMDF ####[address] [place], [place] Phosphoruson 03-30-2021 Phosphate [Mass/Vol] 3.6 mg/dL Normal 2.5-4.5 [facility] Comment on above: Performed By: #### B MP3, PHOS3, HEMDF ####[address] [place], [place] Basic Metabolic Panelon 12-2 Calcium [Mass/Vol] 8.8 mg/dL Normal 8.4-10.4 [facility] Comment on above: Performed By: #### H EMDF, PHOS3, BMP3 ####[facility] [employer] [id number] [place] [address] Anion gap [Moles/Vol] 7 mmol/L Normal 3-13 [facility] Comment on above: Performed By: #### H EMDF, PHOS3, BMP3 ####[facility] [employer] [id number] [place] [address] CO2 [Moles/Vol] 29 mmol/L Normal 22-30 [facility] Comment on above: Performed By: #### H EMDF, PHOS3, BMP3 ####[facility] [employer] [id number] [place] [address] Glucose [Mass/Vol] 185 mg/dL High 70-100 [facility] Comment on above: Performed By: #### H EMDF, PHOS3, BMP3 ####[facility] [employer] [id number] [place] [address] Urea nitrogen [Mass/Vol] 19 mg/dL Normal 9-20 [facility] Comment on above: Performed By: #### H EMDF, PHOS3, BMP3 ####[facility] [employer] [id number] [place] [address] Creatinine [Mass/Vol] 2.78 mg/dL High 0.52-1.25 [facility] Comment on above: Performed By: #### H EMDF, PHOS3, BMP3 ####[facility] [employer] [id number] [place] [address] GFR/1.73 sq M.predicted among blacks MDRD (S/P/Bld) [Vol rate/Area] 18.9 mL/min/{1.73_m2} Abnormal >60 [facility] Comment on above: Performed By: #### H EMDF, PHOS3, BMP3 ####[facility] [employer] [id number] [place] [address] GFR/1.73 sq M.predicted among non-blacks MDRD (S/P/Bld) [Vol rate/Area] 16.3 mL/min/{1.73_m2} Abnormal >60 [facility] Comment on above: Result Comment: KDIG O guidelines provide the following GFR categories:Stage GFR(ml/min/1.73 m2) TermsG1 >=90 Normal or highG2 60-89 Mildly decreased*G3a 45-59 Mildly to moderately [id number] 30-44 Moderately to severely decreasedG4 15-29 Severely [...] Performed By: #### H EMDF, PHOS3, BMP3 ####[facility] [employer] [place] [address] Chloride [Moles/Vol] 102 mmol/L Normal 98-107 [facility] Comment on above: Performed By: #### H EMDF, PHOS3, BMP3 ####[facility] [employer] [id number] [place] [address] Potassium [Moles/Vol] 4.1 mmol/L Normal 3.5-5.1 [facility] Comment on above: Performed By: #### H EMDF, PHOS3, BMP3 ####[address] [place] [address] Sodium [Moles/Vol] 138 mmol/L Normal 135-145 [facility] Comment on above: Performed By: #### H EMDF, PHOS3, BMP3 ####[facility] [employer] [id number] [place] [address] Glucose,Bedsideon 03-29-2021 Glucose [Mass/Vol] 153 mg/dL High 70-100 [facility] Comment on above: Result Comment: Test performed by glucose meter. Results may be 10%-15% lowerthan serum/plasma values. (CLIA ID [id number]) Performed By: #### B GLU ####[facility] [employer] [address] Glucose [Mass/Vol] 160 mg/dL High 70-100 [facility] Comment on above: Result Comment: Test performed by glucose meter. Results may be 10%-15% lowerthan serum/plasma values. (CLIA ID [id number]) Performed By: #### B GLU ####[address] [place], [place] Glucose [Mass/Vol] 181 mg/dL High 70-100 [facility] Comment on above: Result Comment: Test performed by glucose meter. Results may be 10%-15% lowerthan serum/plasma values. (CLIA ID [id number]) Performed By: #### B GLU ####[address] [place], [place] Glucose [Mass/Vol] 173 mg/dL High 70-100 [facility] Comment on above: Result Comment: Test performed by glucose meter. Results may be 10%-15% lowerthan serum/plasma values. (CLIA ID [id number]) Performed By: #### B GLU ####[facility] [employer] [address] [place], [place] Hemogram w/ Autodiffon 03-29 Abs Baso Cnt 0.0 10*3/uL Normal 0.0-0.2 [facility] Comment on above: Performed By: #### H EMDF, PHOS3, BMP3 ####[id number] [place], [place] Abs Neutrophile Cnt 2.9 10*3/uL Normal 1.8-7.0 [facility] Comment on above: Performed By: #### H EMDF, PHOS3, BMP3 ####[address] [place], [place] Basophils/100 WBC (Bld) 0.8 % Normal 0.0-2.0 [facility] Comment on above: Performed By: #### H EMDF, PHOS3, BMP3 ####[address] [place], [place] Eosinophils (Bld) [#/Vol] 0.2 10*3/uL Normal 0.0-0.5 [facility] Comment on above: Performed By: #### H EMDCarmelo PHOS3, BMP3 ####[address] Eosinophils/100 WBC (Bld) 3.9 % Normal 1.0-6.0 [facility] Comment on above: Performed By: #### H EMDCarmelo PHOS3, BMP3 ####[address] Erythrocyte distribution width (RBC) [Ratio] 18.2 % High 11.5-14.5 [facility] Comment on above: Performed By: #### H EMDCarmelo, PHOS3, BMP3 ####[address] Granulocytes/100 WBC (Bld) 60.9 % Normal 40.0-80.0 [facility] Comment on above: Performed By: #### H EMDCarmelo, PHOS3, BMP3 ####[address] Hematocrit (Bld) [Volume fraction] 26.2 % Low 35.0-47.0 [facility] Comment on above: Performed By: #### H EMDCarmelo, PHOS3, BMP3 ####[address] Hemoglobin (Bld) [Mass/Vol] 8.2 g/dL Low 11.7-16.0 [facility] Comment on above: Performed By: #### H EMDF, PHOS3, BMP3 ####[address] Lymphocytes (Bld) [#/Vol] 1.1 10*3/uL Normal 1.0-4.3 [facility] Comment on above: Performed By: #### H EMDF, PHOS3, BMP3 ####[address] Lymphocytes/100 WBC (Bld) 24.1 % Normal 20.0-40.0 [facility] Comment on above: Performed By: #### H EMDF, PHOS3, BMP3 ####[address] MCH (RBC) [Entitic mass] 27.4 pg Normal 26.0-34.0 [facility] Comment on above: Performed By: #### H EMDF, PHOS3, BMP3 ####[address] MCHC 31.3 % Low 32.0-36.0 [facility] Comment on above: Performed By: #### H EMDF, PHOS3, BMP3 ####[address] MCV (RBC) [Entitic vol] 87.6 fL Normal 79.0-98.0 [facility] Comment on above: Performed By: #### H EMDF, PHOS3, BMP3 ####[address] Monocytes (Bld) [#/Vol] 0.5 10*3/uL Normal 0.0-0.8 [facility] Comment on above: Performed By: #### H EMDF, PHOS3, BMP3 ####[address] Monocytes/100 WBC (Bld) 10.3 % High 2.0-10.0 [facility] Comment on above: Performed By: #### H EMDF, PHOS3, BMP3 ####[address] Platelet mean volume (Bld) [Entitic vol] 10.0 fL Normal 7.4-10.4 [facility] Comment on above: Performed By: #### H EMDF, PHOS3, BMP3 ####[address] Platelets (Bld) [#/Vol] 218 10*3/uL Normal 140-440 [facility] Comment on above: Performed By: #### H EMDF, PHOS3, BMP3 ####[address] [facility] [facility] [place] RBC (Bld) [#/Vol] 2.99 10*6/uL Low 3.80-5.20 [facility] Comment on above: Performed By: #### H EMDF, PHOS3, BMP3 ####[facility] [facility] [address] WBC (Bld) [#/Vol] 4.7 10*3/uL Normal 3.6-10.7 [facility] Comment on above: Performed By: #### H EMDF, PHOS3, BMP3 ####[address] [facility] [place] Phosphoruson 03-29-2021 Phosphate [Mass/Vol] 4.4 mg/dL Normal 2.5-4.5 [facility] Comment on above: Performed By: #### H EMDF, PHOS3, BMP3 ####[address] [facility] [place] Basic Metabolic Panelon 12-2 Anion gap [Moles/Vol] 8 mmol/L Normal 3-13 [facility] Comment on above: Performed By: #### B MP3 ####[address] [facility] [place] Calcium [Mass/Vol] 8.7 mg/dL Normal 8.4-10.4 [facility] Comment on above: Performed By: #### B MP3 ####[address] [facility] [place] CO2 [Moles/Vol] 29 mmol/L Normal 22-30 [facility] Comment on above: Performed By: #### B MP3 ####[address] [facility] [place] Glucose [Mass/Vol] 164 mg/dL High 70-100 [facility] Comment on above: Performed By: #### B MP3 ####[address] [facility] [place] Urea nitrogen [Mass/Vol] 16 mg/dL Normal 9-20 [facility] Comment on above: Performed By: #### B MP3 ####[address] [place], [place] Creatinine [Mass/Vol] 2.65 mg/dL High 0.52-1.25 [facility] Comment on above: Performed By: #### B MP3 ####[address] [place], [place] GFR/1.73 sq M.predicted among blacks MDRD (S/P/Bld) [Vol rate/Area] 20.0 mL/min/{1.73_m2} Abnormal >60 [facility] Comment on above: Performed By: #### B MP3 ####[address] [place], [place] GFR/1.73 sq M.predicted among non-blacks MDRD (S/P/Bld) [Vol rate/Area] 17.2 mL/min/{1.73_m2} Abnormal >60 [facility] Comment on above: Result Comment: KDIG O guidelines provide the following GFR categories:Stage GFR(ml/min/1.73 m2) TermsG1 >=90 Normal or highG2 60-89 Mildly decreased*G3a 45-59 Mildly to moderately [id number] 30-44 Moderately to severely decreasedG4 15-29 Severely [...] creatinine secretion. Performed By: #### B MP3 ####[address] [place], [place] Chloride [Moles/Vol] 102 mmol/L Normal 98-107 [facility] Comment on above: Performed By: #### B MP3 ####[address] [place] [address] Potassium [Moles/Vol] 3.7 mmol/L Normal 3.5-5.1 [facility] Comment on above: Performed By: #### B MP3 ####[address] [place] [address] Sodium [Moles/Vol] 139 mmol/L Normal 135-145 [facility] Comment on above: Performed By: #### B MP3 ####[address] [place] [address] Glucose,Bedsideon 03-28-2021 Glucose [Mass/Vol] 214 mg/dL High [address] [facility] Comment on above: Result Comment: Test performed by glucose meter. Results may be 10%-15% lowerthan serum/plasma values. (CLIA ID [id number]) Performed By: #### B GLU ####[address] [place], [place] Glucose [Mass/Vol] 191 mg/dL [facility] [address] [facility] Comment on above: Result Comment: Test performed by glucose meter. Results may be 10%-15% lowerthan serum/plasma values. (CLIA ID [id number]) Performed By: #### B GLU ####[facility] [employer] [address] [place], [place] Glucose [Mass/Vol] 180 mg/dL [facility] [address] Comment on above: Result Comment: Test performed by glucose meter. Results may be 10%-15% lowerthan serum/plasma values. (CLIA ID [id number]) Performed By: #### B GLU ####[address] [place] [address] Glucose [Mass/Vol] 158 mg/dL [facility] [address] [facility] Comment on above: Result Comment: Test performed by glucose meter. Results may be 10%-15% lowerthan serum/plasma values. (CLIA ID [id number]) Performed By: #### B GLU ####[facility] [employer] [id number] [place] [address] Hemogram w/ Autodiffon 03-28 Abs Baso Cnt 0.0 10*3/uL Normal 0.0-0.2 [facility] Comment on above: Performed By: #### P HOS3, HEMDF ####[address] Abs Neutrophile Cnt 3.9 10*3/uL Normal 1.8-7.0 [facility] Comment on above: Performed By: #### P HOS3, HEMDF ####[address] Basophils/100 WBC (Bld) 0.7 % Normal 0.0-2.0 [facility] Comment on above: Performed By: #### P HOS3, HEMDF ####[address] Eosinophils (Bld) [#/Vol] 0.3 10*3/uL Normal 0.0-0.5 [facility] Comment on above: Performed By: #### P HOS3, HEMDF ####[address] Eosinophils/100 WBC (Bld) 4.9 % Normal 1.0-6.0 [facility] Comment on above: Performed By: #### P HOS3, HEMDF ####[address] Erythrocyte distribution width (RBC) [Ratio] 17.7 % High 11.5-14.5 [facility] Comment on above: Performed By: #### P HOS3, HEMDF ####[address] Granulocytes/100 WBC (Bld) 66.8 % Normal 40.0-80.0 [facility] Comment on above: Performed By: #### P HOS3, HEMDF ####[address] Hematocrit (Bld) [Volume fraction] 26.1 % Low 35.0-47.0 [facility] Comment on above: Performed By: #### P HOS3, HEMDF ####[address] Hemoglobin (Bld) [Mass/Vol] 8.1 g/dL Low 11.7-16.0 [facility] Comment on above: Performed By: #### P HOS3, HEMDF ####[address] [place], [place] Lymphocytes (Bld) [#/Vol] 1.1 10*3/uL Normal 1.0-4.3 [facility] Comment on above: Performed By: #### P HOS3, HEMDF ####[address] Lymphocytes/100 WBC (Bld) 19.0 % Low 20.0-40.0 [facility] Comment on above: Performed By: #### P HOS3, HEMDF ####[address] MCH (RBC) [Entitic mass] 27.6 pg Normal 26.0-34.0 [facility] Comment on above: Performed By: #### P HOS3, HEMDF ####[address] MCHC 31.1 % Low 32.0-36.0 [facility] Comment on above: Performed By: #### P HOS3, HEMDF ####[address] MCV (RBC) [Entitic vol] 88.7 fL Normal 79.0-98.0 [facility] Comment on above: Performed By: #### P HOS3, HEMDF ####[address] Monocytes (Bld) [#/Vol] 0.5 10*3/uL Normal 0.0-0.8 [facility] Comment on above: Performed By: #### P HOS3, HEMDF ####[address] Monocytes/100 WBC (Bld) 8.6 % Normal 2.0-10.0 [facility] Comment on above: Performed By: #### P HOS3, HEMDF ####[address] [place], [place] Platelet mean volume (Bld) [Entitic vol] 10.2 fL Normal 7.4-10.4 [facility] Comment on above: Performed By: #### P HOS3, HEMDF ####[address] [address] [place], [place] Platelets (Bld) [#/Vol] 210 10*3/uL Normal 140-440 [facility] Comment on above: Performed By: #### P HOS3, HEMDF ####[address] [place], [place] RBC (Bld) [#/Vol] 2.94 10*6/uL Low 3.80-5.20 [facility] Comment on above: Performed By: #### P HOS3, HEMDF ####[address] WBC (Bld) [#/Vol] 5.9 10*3/uL Normal 3.6-10.7 [facility] Comment on above: Performed By: #### P HOS3, HEMDF ####[address] [place], [place] Phosphoruson 03-28-2021 Phosphate [Mass/Vol] 3.7 mg/dL Normal 2.5-4.5 [facility] Comment on above: Performed By: #### P HOS3, HEMDF ####[address] [address] [place], [place] Basic Metabolic Panelon 03-03 Anion gap [Moles/Vol] 9 mmol/L Normal 3-13 [facility] Comment on above: Performed By: #### P HOS3, BMP3M, HEMDF ####[address] [place], [place] Calcium [Mass/Vol] 8.7 mg/dL Normal 8.4-10.4 [facility] Comment on above: Performed By: #### P HOS3, BMP3M, HEMDF ####[facility] [place], [place] CO2 [Moles/Vol] 27 mmol/L Normal 22-30 [facility] Comment on above: Performed By: #### P HOS3, BMP3M, HEMDF ####[address] [place], [place] Glucose [Mass/Vol] 158 mg/dL High 70-100 [facility] Comment on above: Performed By: #### P HOS3, BMP3M, HEMDF ####[address] [place], [place] Urea nitrogen [Mass/Vol] 23 mg/dL High 9-20 [facility] Comment on above: Performed By: #### P HOS3, BMP3M, HEMDF ####[address] [place], [place] Creatinine [Mass/Vol] 3.38 mg/dL High 0.52-1.25 [facility] Comment on above: Performed By: #### P HOS3, BMP3M, HEMDF ####[address] [place], [place] GFR/1.73 sq M.predicted among blacks MDRD (S/P/Bld) [Vol rate/Area] 14.9 mL/min/{1.73_m2} Abnormal >60 [facility] Comment on above: Performed By: #### P HOS3, BMP3M, HEMDF ####[address] [place], [place] GFR/1.73 sq M.predicted among non-blacks MDRD (S/P/Bld) [Vol rate/Area] 12.9 mL/min/{1.73_m2} Abnormal >60 [facility] Comment on above: Result Comment: KDIG O guidelines provide the following GFR categories:Stage GFR(ml/min/1.73 m2) TermsG1 >=90 Normal or highG2 60-89 Mildly decreased*G3a 45-59 Mildly to moderately rtunpkitgH3x 30-44 Moderately to severely decreasedG4 15-29 Severely [...] Performed By: #### P HOS3, BMP3M, HEMDF ####[facility] [employer] [place], [place] Potassium [Moles/Vol] 3.9 mmol/L Normal 3.5-5.1 [facility] Comment on above: Performed By: #### P HOS3, BMP3M, HEMDF ####[facility] [employer] [id number] [place] [address] Sodium [Moles/Vol] 139 mmol/L Normal 135-145 [facility] Comment on above: Performed By: #### P HOS3, BMP3M, HEMDF ####[facility] [employer] [place] [address] Chloride [Moles/Vol] 103 mmol/L Normal 98-107 [facility] Comment on above: Performed By: #### P HOS3, BMP3M, HEMDF ####[facility] [employer] [address] [place] [address] Glucose,Bedsideon 03-27-2021 Glucose [Mass/Vol] 175 mg/dL High 70-100 [facility] Comment on above: Result Comment: Test performed by glucose meter. Results may be 10%-15% lowerthan serum/plasma values. (CLIA ID [id number]) Performed By: #### B GLU ####[facility] [employer] [id number] [place] [address] Glucose [Mass/Vol] 151 mg/dL High 70-100 [facility] Comment on above: Result Comment: Test performed by glucose meter. Results may be 10%-15% lowerthan serum/plasma values. (CLIA ID [id number]) Performed By: #### B GLU ####[address] [place], [place] Glucose [Mass/Vol] 188 mg/dL High 70-100 [facility] Comment on above: Result Comment: Test performed by glucose meter. Results may be 10%-15% lowerthan serum/plasma values. (CLIA ID [id number]) Performed By: #### B GLU ####[address] Glucose [Mass/Vol] 168 mg/dL High 70-100 [facility] Comment on above: Result Comment: Test performed by glucose meter. Results may be 10%-15% lowerthan serum/plasma values. (CLIA ID [id number]) Performed By: #### B GLU ####[address] Hemogram w/ Autodiffon 03-27 Abs Baso Cnt 0.1 10*3/uL Normal 0.0-0.2 [facility] Comment on above: Performed By: #### P HOS3, BMP3M, HEMDF ####[address] [place], [place] Abs Neutrophile Cnt 3.8 10*3/uL Normal 1.8-7.0 [facility] Comment on above: Performed By: #### P HOS3, BMP3M, HEMDF ####[address] Basophils/100 WBC (Bld) 1.1 % Normal 0.0-2.0 [facility] Comment on above: Performed By: #### P HOS3, BMP3M, HEMDF ####[address] Eosinophils (Bld) [#/Vol] 0.3 10*3/uL Normal 0.0-0.5 [facility] Comment on above: Performed By: #### P HOS3, BMP3M, HEMDF ####[address] Eosinophils/100 WBC (Bld) 5.3 % Normal 1.0-6.0 [facility] Comment on above: Performed By: #### P HOS3, BMP3M, HEMDF ####[address] Erythrocyte distribution width (RBC) [Ratio] 17.7 % High 11.5-14.5 [facility] Comment on above: Performed By: #### P HOS3, BMP3M, HEMDF ####[address] Granulocytes/100 WBC (Bld) 66.6 % Normal 40.0-80.0 [facility] Comment on above: Performed By: #### P HOS3, BMP3M, HEMDF ####[address] Hematocrit (Bld) [Volume fraction] 26.3 % Low 35.0-47.0 [facility] Comment on above: Performed By: #### P HOS3, BMP3M, HEMDF ####[address] Hemoglobin (Bld) [Mass/Vol] 8.2 g/dL Low 11.7-16.0 [facility] Comment on above: Performed By: #### P HOS3, BMP3M, HEMDF ####[address] Lymphocytes (Bld) [#/Vol] 1.0 10*3/uL Normal 1.0-4.3 [facility] Comment on above: Performed By: #### P HOS3, BMP3M, HEMDF ####[address] Lymphocytes/100 WBC (Bld) 18.0 % Low 20.0-40.0 [facility] Comment on above: Performed By: #### P HOS3, BMP3M, HEMDF ####[address] MCH (RBC) [Entitic mass] 27.7 pg Normal 26.0-34.0 [facility] Comment on above: Performed By: #### P HOS3, BMP3M, HEMDF ####[address] [place], [place] MCHC 31.3 % Low 32.0-36.0 [facility] Comment on above: Performed By: #### P HOS3, BMP3M, HEMDF ####[address] MCV (RBC) [Entitic vol] 88.4 fL Normal 79.0-98.0 [facility] Comment on above: Performed By: #### P HOS3, BMP3M, HEMDF ####[address] Monocytes (Bld) [#/Vol] 0.5 10*3/uL Normal 0.0-0.8 [facility] Comment on above: Performed By: #### P HOS3, BMP3M, HEMDF ####[address] Monocytes/100 WBC (Bld) 9.0 % Normal 2.0-10.0 [facility] Comment on above: Performed By: #### P HOS3, BMP3M, HEMDF ####[address] Platelet mean volume (Bld) [Entitic vol] 10.0 fL Normal 7.4-10.4 [facility] Comment on above: Performed By: #### P HOS3, BMP3M, HEMDF ####[address] Platelets (Bld) [#/Vol] 220 10*3/uL Normal 140-440 [facility] Comment on above: Performed By: #### P HOS3, BMP3M, HEMDF ####[address] RBC (Bld) [#/Vol] 2.97 10*6/uL Low 3.80-5.20 [facility] Comment on above: Performed By: #### P HOS3, BMP3M, HEMDF ####[facility] [place], [place] WBC (Bld) [#/Vol] 5.8 10*3/uL Normal 3.6-10.7 [facility] Comment on above: Performed By: #### P HOS3, BMP3M, HEMDF ####[address] [place], [place] Phosphoruson 03-27-2021 Phosphate [Mass/Vol] 4.7 mg/dL High 2.5-4.5 [facility] Comment on above: Performed By: #### P HOS3, BMP3M, HEMDF ####[address] [place], [place] CR Chest PA/LATon 03-26-2021 CR Chest PA/LAT Normal [facility] Comp Panel with Mg Reflexon 03-26-2021 ALT [Catalytic activity/Vol] 8 U/L Normal 0-34 [facility] Comment on above: Result Comment: The ALT test is performed by an updated assay method.Please note that the reference intervals have beenchanged and are now sex specific. Performed By: #### C MP3M, HEMDF, PHOS3 ####[address] [place], [place] Calcium [Mass/Vol] 8.9 mg/dL Normal 8.4-10.4 [facility] Comment on above: Performed By: #### C MP3M, HEMDF, PHOS3 ####[address] [place], [place] Glucose [Mass/Vol] 176 mg/dL High 70-100 [facility] Comment on above: Performed By: #### C MP3M, HEMDF, PHOS3 ####[address] [place], [place] ALP [Catalytic activity/Vol] 87 U/L Normal 38-126 [facility] Comment on above: Performed By: #### C MP3M, HEMDF, PHOS3 ####[facility] [place], [place] Anion gap [Moles/Vol] 9 mmol/L Normal 3-13 [facility] Comment on above: Performed By: #### C MP3M, HEMDF, PHOS3 ####[facility] [place], [place] AST [Catalytic activity/Vol] 26 U/L Normal 15-46 [facility] Comment on above: Performed By: #### C MP3M, HEMDF, PHOS3 ####[facility] [employer] [id number] [place], [place] Bilirubin [Mass/Vol] 0.4 mg/dL Normal 0.2-1.3 [facility] Comment on above: Performed By: #### C MP3M, HEMDF, PHOS3 ####[address] [place], [place] CO2 [Moles/Vol] 28 mmol/L Normal 22-30 [facility] Comment on above: Performed By: #### C MP3M, HEMDF, PHOS3 ####[address] [place], [place] Creatinine [Mass/Vol] 3.02 mg/dL High 0.52-1.25 [facility] Comment on above: Performed By: #### C MP3M, HEMDF, PHOS3 ####[facility] [employer] [id number] [place], [place] GFR/1.73 sq M.predicted among blacks MDRD (S/P/Bld) [Vol rate/Area] 17.1 mL/min/{1.73_m2} Abnormal >60 [facility] Comment on above: Performed By: #### C MP3M, HEMDF, PHOS3 ####[facility] [employer] [id number] [place], [place] GFR/1.73 sq M.predicted among non-blacks MDRD (S/P/Bld) [Vol rate/Area] 14.7 mL/min/{1.73_m2} Abnormal >60 [facility] Comment on above: Result Comment: KDIG O guidelines provide the following GFR categories:Stage GFR(ml/min/1.73 m2) TermsG1 >=90 Normal or highG2 60-89 Mildly decreased*G3a 45-59 Mildly to moderately [id number] 30-44 Moderately to severely decreasedG4 15-29 Severely [...] Performed By: #### C MP3M, HEMDF, PHOS3 ####[place] [place] Protein [Mass/Vol] 6.1 g/dL Low 6.3-8.2 [facility] Comment on above: Performed By: #### C MP3M, HEMDF, PHOS3 ####[place] [place] Urea nitrogen [Mass/Vol] 20 mg/dL Normal 9-20 [facility] Comment on above: Performed By: #### C MP3M, HEMDF, PHOS3 ####[place] [place] Potassium [Moles/Vol] 3.8 mmol/L Normal 3.5-5.1 [facility] Comment on above: Performed By: #### C MP3M, HEMDF, PHOS3 ####[place] [place] Albumin [Mass/Vol] 3.1 g/dL Low 3.5-5.0 [facility] Comment on above: Performed By: #### C MP3M, HEMDF, PHOS3 ####[place] [place] Chloride [Moles/Vol] 102 mmol/L Normal 98-107 [facility] Comment on above: Performed By: #### C MP3M, HEMDF, PHOS3 ####[facility] [employer] [id number] [place], [place] Sodium [Moles/Vol] 139 mmol/L Normal 135-145 [facility] Comment on above: Performed By: #### C MP3M, HEMDF, PHOS3 ####[facility] [employer] [id number] [place], [place] Glucose,Bedsideon 03-26-2021 Glucose [Mass/Vol] 158 mg/dL High 70-100 [facility] Comment on above: Result Comment: Test performed by glucose meter. Results may be 10%-15% lowerthan serum/plasma values. (CLIA ID [id number]) Performed By: #### B GLU ####[facility] [employer] [id number] [place], [place] Glucose [Mass/Vol] 165 mg/dL High 70-100 [facility] Comment on above: Result Comment: Test performed by glucose meter. Results may be 10%-15% lowerthan serum/plasma values. (CLIA ID [id number]) Performed By: #### B GLU ####[facility] [employer] [id number] [place], [place] Glucose [Mass/Vol] 184 mg/dL High 70-100 [facility] Comment on above: Result Comment: Test performed by glucose meter. Results may be 10%-15% lowerthan serum/plasma values. (CLIA ID [id number]) Performed By: #### B GLU ####[facility] [employer] [id number] [place], [place] Glucose [Mass/Vol] 162 mg/dL High 70-100 [facility] Comment on above: Result Comment: Test performed by glucose meter. Results may be 10%-15% lowerthan serum/plasma values. (CLIA ID [id number]) Performed By: #### B GLU ####[facility] [employer] [id number] [place], [place] Hemogram w/ Autodiffon 03-26 Abs Baso Cnt 0.0 10*3/uL Normal 0.0-0.2 [facility] Comment on above: Performed By: #### C MP3M, HEMDF, PHOS3 ####[address] [place], [place] Abs Neutrophile Cnt 3.5 10*3/uL Normal 1.8-7.0 [facility] Comment on above: Performed By: #### C MP3M, HEMDF, PHOS3 ####[address] [place], [place] Basophils/100 WBC (Bld) 0.6 % Normal 0.0-2.0 [facility] Comment on above: Performed By: #### C MP3M, HEMDF, PHOS3 ####[address] [place], [place] Eosinophils (Bld) [#/Vol] 0.2 10*3/uL Normal 0.0-0.5 [facility] Comment on above: Performed By: #### C MP3M, HEMDF, PHOS3 ####[facility] [employer] [id number] [place], [place] Eosinophils/100 WBC (Bld) 4.4 % Normal 1.0-6.0 [facility] Comment on above: Performed By: #### C MP3M, HEMDF, PHOS3 ####[address] [place], [place] Erythrocyte distribution width (RBC) [Ratio] 17.4 % High 11.5-14.5 [facility] Comment on above: Performed By: #### C MP3M, HEMDF, PHOS3 ####[facility] [employer] [id number] [place], [place] Granulocytes/100 WBC (Bld) 61.7 % Normal 40.0-80.0 [facility] Comment on above: Performed By: #### C MP3M, HEMDF, PHOS3 ####[facility] [employer] [id number] [place], [place] Hematocrit (Bld) [Volume fraction] 26.0 % Low 35.0-47.0 [facility] Comment on above: Performed By: #### C MP3M HEMDF, PHOS3 ####[address] [place], [place] Hemoglobin (Bld) [Mass/Vol] 8.2 g/dL Low 11.7-16.0 [facility] Comment on above: Performed By: #### C MP3M, HEMDF, PHOS3 ####[address] [place], [place] Lymphocytes (Bld) [#/Vol] 1.2 10*3/uL Normal 1.0-4.3 [facility] Comment on above: Performed By: #### C MP3M, HEMDF, PHOS3 ####[address] Lymphocytes/100 WBC (Bld) 21.2 % Normal 20.0-40.0 [facility] Comment on above: Performed By: #### C MP3M, HEMDF, PHOS3 ####[address] MCH (RBC) [Entitic mass] 27.6 pg Normal 26.0-34.0 [facility] Comment on above: Performed By: #### C MP3M, HEMDF, PHOS3 ####[address] [place], [place] MCHC 31.5 % Low 32.0-36.0 [facility] Comment on above: Performed By: #### C MP3M, HEMDF, PHOS3 ####[address] MCV (RBC) [Entitic vol] 87.6 fL Normal 79.0-98.0 [facility] Comment on above: Performed By: #### C MP3M, HEMDF, PHOS3 ####[address] [place], [place] Monocytes (Bld) [#/Vol] 0.7 10*3/uL Normal 0.0-0.8 [facility] Comment on above: Performed By: #### C MP3M, HEMDF, PHOS3 ####[address] [place], [place] Monocytes/100 WBC (Bld) 12.1 % High 2.0-10.0 [facility] Comment on above: Performed By: #### C MP3M, HEMDF, PHOS3 ####[address] [place], [place] Platelet mean volume (Bld) [Entitic vol] 9.7 fL Normal 7.4-10.4 [facility] Comment on above: Performed By: #### C MP3M, HEMDF, PHOS3 ####[address] [place], [place] Platelets (Bld) [#/Vol] 198 10*3/uL Normal 140-440 [facility] Comment on above: Performed By: #### C MP3M, HEMDF, PHOS3 ####[address] [place], [place] RBC (Bld) [#/Vol] 2.96 10*6/uL Low 3.80-5.20 [facility] Comment on above: Performed By: #### C MP3M, HEMDF, PHOS3 ####[address] [place], [place] WBC (Bld) [#/Vol] 5.6 10*3/uL Normal 3.6-10.7 [facility] Comment on above: Performed By: #### C MP3M, HEMDF, PHOS3 ####[address] [place], [place] Phosphoruson 03-26-2021 Phosphate [Mass/Vol] 4.3 mg/dL Normal 2.5-4.5 [facility] Comment on above: Performed By: #### C MP3M, HEMDF, PHOS3 ####[address] [place], [place] Comp Panel with Mg Reflexon 03-25-2021 ALP [Catalytic activity/Vol] 84 U/L Normal 38-126 [facility] Comment on above: Performed By: #### H EMDF, PHOS3, CMP3M ####[place] [facility] [address] [place] ALT [Catalytic activity/Vol] 8 U/L Normal 0-34 [facility] Comment on above: Result Comment: The ALT test is performed by an updated assay method.Please note that the reference intervals have beenchanged and are now sex specific. Performed By: #### H EMDF, PHOS3, CMP3M ####[address] [place] [facility] [address] Anion gap [Moles/Vol] 11 mmol/L Normal 3-13 [facility] Comment on above: Performed By: #### H EMDF, PHOS3, CMP3M ####[place] [facility] AST [Catalytic activity/Vol] 25 U/L Normal 15-46 [facility] Comment on above: Performed By: #### H EMDF, PHOS3, CMP3M ####[place] [facility] Calcium [Mass/Vol] 8.6 mg/dL Normal 8.4-10.4 [facility] Comment on above: Performed By: #### H EMDF, PHOS3, CMP3M ####[place] [facility] CO2 [Moles/Vol] 26 mmol/L Normal 22-30 [facility] Comment on above: Performed By: #### H EMDF, PHOS3, CMP3M ####[place] [facility] Glucose [Mass/Vol] 187 mg/dL High 70-100 [facility] Comment on above: Performed By: #### H EMDF, PHOS3, CMP3M ####[place] [facility] Protein [Mass/Vol] 6.2 g/dL Low 6.3-8.2 [facility] Comment on above: Performed By: #### H EMDF, PHOS3, CMP3M ####[facility] [place], [place] Urea nitrogen [Mass/Vol] 16 mg/dL Normal 9-20 [facility] Comment on above: Performed By: #### H EMDF, PHOS3, CMP3M ####[address] [place], [place] Bilirubin [Mass/Vol] 0.5 mg/dL Normal 0.2-1.3 [facility] Comment on above: Performed By: #### H EMDF, PHOS3, CMP3M ####[address] [place], [place] Creatinine [Mass/Vol] 2.58 mg/dL High 0.52-1.25 [facility] Comment on above: Performed By: #### H EMDF, PHOS3, CMP3M ####[address] [place], [place] GFR/1.73 sq M.predicted among blacks MDRD (S/P/Bld) [Vol rate/Area] 20.6 mL/min/{1.73_m2} Abnormal >60 [facility] Comment on above: Performed By: #### H EMDF, PHOS3, CMP3M ####[address] [place], [place] GFR/1.73 sq M.predicted among non-blacks MDRD (S/P/Bld) [Vol rate/Area] 17.8 mL/min/{1.73_m2} Abnormal >60 [facility] Comment on above: Result Comment: KDIG O guidelines provide the following GFR categories:Stage GFR(ml/min/1.73 m2) TermsG1 >=90 Normal or highG2 60-89 Mildly decreased*G3a 45-59 Mildly to moderately [id number] 30-44 Moderately to severely decreasedG4 15-29 Severely [...] creatinine secretion. Performed By: #### H HERACLIO NGO CMP3M ####[address] [place], [place] Albumin [Mass/Vol] 3.1 g/dL Low 3.5-5.0 [facility] Comment on above: Performed By: #### H HERACLIO NGO CMP3M ####[address] [place], [place] Chloride [Moles/Vol] 101 mmol/L Normal 98-107 [facility] Comment on above: Performed By: #### H HERACLIO NGO CMP3M ####[address] Potassium [Moles/Vol] 3.8 mmol/L Normal 3.5-5.1 [facility] Comment on above: Performed By: #### H HERACLIO NGO CMP3M ####[address] [place], [place] Sodium [Moles/Vol] 138 mmol/L Normal 135-145 [facility] Comment on above: Performed By: #### H HERACLIO NGO CMP3M ####[address] Glucose,Bedsideon 03-25-2021 Glucose [Mass/Vol] 188 mg/dL High 70-100 [facility] Comment on above: Result Comment: Test performed by glucose meter. Results may be 10%-15% lowerthan serum/plasma values. (CLIA ID [id number]) Performed By: #### B GLU ####[address] [place], [place] Glucose [Mass/Vol] 158 mg/dL High 70-100 [facility] Comment on above: Result Comment: Test performed by glucose meter. Results may be 10%-15% lowerthan serum/plasma values. (CLIA ID [id number]) Performed By: #### B GLU ####[facility] [employer] [id number] [place] [address] Glucose [Mass/Vol] 210 mg/dL High 70-100 [facility] Comment on above: Result Comment: Test performed by glucose meter. Results may be 10%-15% lowerthan serum/plasma values. (CLIA ID [id number]) Performed By: #### B GLU ####[facility] [employer] [id number] [place] [address] Glucose [Mass/Vol] 180 mg/dL High 70-100 [facility] Comment on above: Result Comment: Test performed by glucose meter. Results may be 10%-15% lowerthan serum/plasma values. (CLIA ID [id number]) Performed By: #### B GLU ####[facility] [employer] [id number] [place] [address] Hemogram w/ Autodiffon 03-25 Abs Baso Cnt 0.0 10*3/uL Normal 0.0-0.2 [facility] Comment on above: Performed By: #### H HERACLIO NGO, CMP3M ####[facility] [employer] [id number] [place] [address] Abs Neutrophile Cnt 3.8 10*3/uL Normal 1.8-7.0 [facility] Comment on above: Performed By: #### H HUBER PHOFlorin, CMP3M ####[facility] [employer] [id number] [place] [address] Basophils/100 WBC (Bld) 0.8 % Normal 0.0-2.0 [facility] Comment on above: Performed By: #### H HUBER PHOFlorin, CMP3M ####[facility] [employer] [id number] [place] [address] Eosinophils (Bld) [#/Vol] 0.2 10*3/uL Normal 0.0-0.5 [facility] Comment on above: Performed By: #### H EMDF, PHOS3, CMP3M ####[address] Eosinophils/100 WBC (Bld) 3.6 % Normal 1.0-6.0 [facility] Comment on above: Performed By: #### H EMDF, PHOS3, CMP3M ####[address] Erythrocyte distribution width (RBC) [Ratio] 17.5 % High 11.5-14.5 [facility] Comment on above: Performed By: #### H EMDF, PHOS3, CMP3M ####[address] Granulocytes/100 WBC (Bld) 63.9 % Normal 40.0-80.0 [facility] Comment on above: Performed By: #### H EMDF, PHOS3, CMP3M ####[address] Hematocrit (Bld) [Volume fraction] 27.4 % Low 35.0-47.0 [facility] Comment on above: Performed By: #### H EMDF, PHOS3, CMP3M ####[address] Hemoglobin (Bld) [Mass/Vol] 8.5 g/dL Low 11.7-16.0 [facility] Comment on above: Performed By: #### H EMDF, PHOS3, CMP3M ####[address] Lymphocytes (Bld) [#/Vol] 1.2 10*3/uL Normal 1.0-4.3 [facility] Comment on above: Performed By: #### H EMDF, PHOS3, CMP3M ####[address] Lymphocytes/100 WBC (Bld) 19.9 % Low 20.0-40.0 [facility] Comment on above: Performed By: #### H EMDF, PHOS3, CMP3M ####[address] [place], [place] MCH (RBC) [Entitic mass] 27.5 pg Normal 26.0-34.0 [facility] Comment on above: Performed By: #### H EMDF, PHOS3, CMP3M ####[address] [place], [place] MCHC 31.0 % Low 32.0-36.0 [facility] Comment on above: Performed By: #### H EMDF, PHOS3, CMP3M ####[address] [place], [place] MCV (RBC) [Entitic vol] 88.8 fL Normal 79.0-98.0 [facility] Comment on above: Performed By: #### H EMDF, PHOS3, CMP3M ####[address] [place], [place] Monocytes (Bld) [#/Vol] 0.7 10*3/uL Normal 0.0-0.8 [facility] Comment on above: Performed By: #### H EMDF, PHOS3, CMP3M ####[address] [place], [place] Monocytes/100 WBC (Bld) 11.8 % High 2.0-10.0 [facility] Comment on above: Performed By: #### H EMDF, PHOS3, CMP3M ####[address] [place], [place] Platelet mean volume (Bld) [Entitic vol] 9.8 fL Normal 7.4-10.4 [facility] Comment on above: Performed By: #### H EMDF, PHOS3, CMP3M ####[address] [place], [place] Platelets (Bld) [#/Vol] 200 10*3/uL Normal 140-440 [facility] Comment on above: Performed By: #### H EMDF, PHOS3, CMP3M ####[address] RBC (Bld) [#/Vol] 3.09 10*6/uL Low 3.80-5.20 [facility] Comment on above: Performed By: #### H EMDF, PHOS3, CMP3M ####[address] [place], [place] WBC (Bld) [#/Vol] 5.9 10*3/uL Normal 3.6-10.7 [facility] Comment on above: Performed By: #### H EMDF, PHOS3, CMP3M ####[address] [place], [place] Phosphoruson 03-25-2021 Phosphate [Mass/Vol] 3.8 mg/dL Normal 2.5-4.5 [facility] Comment on above: Performed By: #### H EMDF, PHOS3, CMP3M ####[address] [place], [place] Comp Panel with Mg Reflexon 03-24-2021 ALT [Catalytic activity/Vol] 9 U/L Normal 0-34 [facility] Comment on above: Result Comment: The ALT test is performed by an updated assay method.Please note that the reference intervals have beenchanged and are now sex specific. Performed By: #### C MP3M, PHOS3, HEMDF ####[address] [place], [place] Calcium [Mass/Vol] 8.7 mg/dL Normal 8.4-10.4 [facility] Comment on above: Performed By: #### C MP3M, PHOS3, HEMDF ####[address] [place], [place] ALP [Catalytic activity/Vol] 75 U/L Normal 38-126 [facility] Comment on above: Performed By: #### C MP3M, PHOS3, HEMDF ####[address] [place], [place] Anion gap [Moles/Vol] 9 mmol/L Normal 3-13 [facility] Comment on above: Performed By: #### C MP3M, PHOS3, HEMDF ####[address] [place], [place] AST [Catalytic activity/Vol] 21 U/L Normal 15-46 [facility] Comment on above: Performed By: #### C MP3M, PHOS3, HEMDF ####[address] [place], [place] Bilirubin [Mass/Vol] 0.4 mg/dL Normal 0.2-1.3 [facility] Comment on above: Performed By: #### C MP3M, PHOS3, HEMDF ####[address] [place], [place] CO2 [Moles/Vol] 27 mmol/L Normal 22-30 [facility] Comment on above: Performed By: #### C MP3M, PHOS3, HEMDF ####[address] [place], [place] Creatinine [Mass/Vol] 3.12 mg/dL High 0.52-1.25 [facility] Comment on above: Performed By: #### C MP3M, PHOS3, HEMDF ####[address] [place], [place] GFR/1.73 sq M.predicted among blacks MDRD (S/P/Bld) [Vol rate/Area] 16.4 mL/min/{1.73_m2} Abnormal >60 [facility] Comment on above: Performed By: #### C MP3M, PHOS3, HEMDF ####[address] [place], [place] GFR/1.73 sq M.predicted among non-blacks MDRD (S/P/Bld) [Vol rate/Area] 14.2 mL/min/{1.73_m2} Abnormal >60 [facility] Comment on above: Result Comment: KDIG O guidelines provide the following GFR categories:Stage GFR(ml/min/1.73 m2) TermsG1 >=90 Normal or highG2 60-89 Mildly decreased*G3a 45-59 Mildly to moderately peoxeormbJ6s 30-44 Moderately to severely decreasedG4 15-29 Severely [...] creatinine secretion. Performed By: #### C MP3M, PHOS3, HEMDF ####[facility] [employer] [id number] [place], [place] Glucose [Mass/Vol] 212 mg/dL High 70-100 [facility] Comment on above: Performed By: #### C MP3M, PHOS3, HEMDF ####[address] [place], [place] Protein [Mass/Vol] 5.9 g/dL Low 6.3-8.2 [facility] Comment on above: Performed By: #### C MP3M, PHOS3, HEMDF ####[facility] [employer] [id number] [place], [place] Urea nitrogen [Mass/Vol] 19 mg/dL Normal 9-20 [facility] Comment on above: Performed By: #### C MP3M, PHOS3, HEMDF ####[address] [place] Potassium [Moles/Vol] 3.8 mmol/L Normal 3.5-5.1 [facility] Comment on above: Performed By: #### C MP3M, PHOS3, HEMDF ####[facility] [employer] [id number] [place], [place] Sodium [Moles/Vol] 139 mmol/L Normal 135-145 [facility] Comment on above: Performed By: #### C MP3M, PHOS3, HEMDF ####[facility] [employer] [id number] [place], [place] Albumin [Mass/Vol] 3.1 g/dL Low 3.5-5.0 [facility] Comment on above: Performed By: #### C MP3M, PHOS3, HEMDF ####[facility] [employer] [id number] [place] [address] Chloride [Moles/Vol] 102 mmol/L Normal 98-107 [facility] Comment on above: Performed By: #### C MP3M, PHOS3, HEMDF ####[facility] [employer] [id number] [place] [address] Glucose,Bedsideon 03-24-2021 Glucose [Mass/Vol] 230 mg/dL High 70-100 [facility] Comment on above: Result Comment: Test performed by glucose meter. Results may be 10%-15% lowerthan serum/plasma values. (CLIA ID [id number]) Performed By: #### B GLU ####[facility] [employer] [address] [place] [address] Glucose [Mass/Vol] 208 mg/dL High 70-100 [facility] Comment on above: Result Comment: Test performed by glucose meter. Results may be 10%-15% lowerthan serum/plasma values. (CLIA ID [id number]) Performed By: #### B GLU ####[facility] [employer] [address] [place] [address] Glucose [Mass/Vol] 217 mg/dL High 70-100 [facility] Comment on above: Result Comment: Test performed by glucose meter. Results may be 10%-15% lowerthan serum/plasma values. (CLIA ID [id number]) Performed By: #### B GLU ####[facility] [employer] [id number] [place] [address] Glucose [Mass/Vol] 196 mg/dL High 70-100 [facility] Comment on above: Result Comment: Test performed by glucose meter. Results may be 10%-15% lowerthan serum/plasma values. (CLIA ID [id number]) Performed By: #### B GLU ####[facility] [employer] [id number] [facility] [place] [address] Hemogram w/ Autodiffon 03-24 Abs Baso Cnt 0.0 10*3/uL Normal 0.0-0.2 [facility] Comment on above: Performed By: #### C MP3M, PHOS3, HEMDF ####[id number] [place], [place] Abs Neutrophile Cnt 2.6 10*3/uL Normal 1.8-7.0 [facility] Comment on above: Performed By: #### C MP3M, PHOS3, HEMDF ####[id number] [place], [place] Basophils/100 WBC (Bld) 0.9 % Normal 0.0-2.0 [facility] Comment on above: Performed By: #### C MP3M, PHOS3, HEMDF ####[id number] [place], [place] Eosinophils (Bld) [#/Vol] 0.3 10*3/uL Normal 0.0-0.5 [facility] Comment on above: Performed By: #### C MP3M, PHOS3, HEMDF ####[id number] [place], [place] Eosinophils/100 WBC (Bld) 7.4 % High 1.0-6.0 [facility] Comment on above: Performed By: #### C MP3M, PHOS3, HEMDF ####[id number] [place], [place] Erythrocyte distribution width (RBC) [Ratio] 17.7 % High 11.5-14.5 [facility] Comment on above: Performed By: #### C MP3M, PHOS3, HEMDF ####[id number] [place], [place] Granulocytes/100 WBC (Bld) 56.2 % Normal 40.0-80.0 [facility] Comment on above: Performed By: #### C MP3M, PHOS3, HEMDF ####[id number] [place], [place] Hematocrit (Bld) [Volume fraction] 24.4 % Low 35.0-47.0 [facility] Comment on above: Performed By: #### C MP3M, PHOS3, HEMDF ####[id number] [place], [place] Hemoglobin (Bld) [Mass/Vol] 7.6 g/dL Low 11.7-16.0 [facility] Comment on above: Performed By: #### C MP3M, PHOS3, HEMDF ####[address] Lymphocytes (Bld) [#/Vol] 1.0 10*3/uL Normal 1.0-4.3 [facility] Comment on above: Performed By: #### C MP3M, PHOS3, HEMDF ####[address] Lymphocytes/100 WBC (Bld) 22.5 % Normal 20.0-40.0 [facility] Comment on above: Performed By: #### C MP3M, PHOS3, HEMDF ####[address] MCH (RBC) [Entitic mass] 27.3 pg Normal 26.0-34.0 [facility] Comment on above: Performed By: #### C MP3M, PHOS3, HEMDF ####[address] MCHC 31.2 % Low 32.0-36.0 [facility] Comment on above: Performed By: #### C MP3M, PHOS3, HEMDF ####[address] MCV (RBC) [Entitic vol] 87.3 fL Normal 79.0-98.0 [facility] Comment on above: Performed By: #### C MP3M, PHOS3, HEMDF ####[address] Monocytes (Bld) [#/Vol] 0.6 10*3/uL Normal 0.0-0.8 [facility] Comment on above: Performed By: #### C MP3M, PHOS3, HEMDF ####[id number] [place], [place] Monocytes/100 WBC (Bld) 13.0 % High 2.0-10.0 [facility] Comment on above: Performed By: #### C MP3M, PHOS3, HEMDF ####[id number] [place], [place] Platelet mean volume (Bld) [Entitic vol] 10.2 fL Normal 7.4-10.4 [facility] Comment on above: Performed By: #### C MP3M, PHOS3, HEMDF ####[id number] [place], [place] Platelets (Bld) [#/Vol] 171 10*3/uL Normal 140-440 [facility] Comment on above: Performed By: #### C MP3M, PHOS3, HEMDF ####[address] [address] [place], [place] RBC (Bld) [#/Vol] 2.79 10*6/uL Low 3.80-5.20 [facility] Comment on above: Performed By: #### C MP3M, PHOS3, HEMDF ####[id number] [place], [place] WBC (Bld) [#/Vol] 4.6 10*3/uL Normal 3.6-10.7 [facility] Comment on above: Performed By: #### C MP3M, PHOS3, HEMDF ####[id number] [place], [place] Phosphoruson 03-24-2021 Phosphate [Mass/Vol] 3.9 mg/dL Normal 2.5-4.5 [facility] Comment on above: Performed By: #### C MP3M, PHOS3, HEMDF ####[id number] [place], [place] Calcium,Ionizedon 03-23-2021 Ionized Ca,Measured 4.40 mg/dL Normal 4.30-5.20 [facility] Comment on above: Performed By: #### H EMDF, CMP3M, ICA, PHOS3, MG3 ####[id number] [place], [place] pH, Ionized Calcium 7.29 Low 7.31-7.46 [facility] Comment on above: Performed By: #### H EMDF, CMP3M, ICA, PHOS3, MG3 ####[id number] [place], [place] Comp Panel with Mg Reflexon 03-23-2021 Calcium [Mass/Vol] 8.6 mg/dL Normal 8.4-10.4 [facility] Comment on above: Performed By: #### H EMDF, CMP3M, ICA, PHOS3, MG3 ####[id number] [place], [place] ALP [Catalytic activity/Vol] 66 U/L Normal 38-126 [facility] Comment on above: Performed By: #### H EMDF, CMP3M, ICA, PHOS3, MG3 ####[id number] [place], [place] ALT [Catalytic activity/Vol] 9 U/L Normal 0-34 [facility] Comment on above: Result Comment: The ALT test is performed by an updated assay method.Please note that the reference intervals have beenchanged and are now sex specific. Performed By: #### H EMDF, CMP3M, ICA, PHOS3, MG3 ####[id number] [place], [place] Anion gap [Moles/Vol] 9 mmol/L Normal 3-13 [facility] Comment on above: Performed By: #### H EMDF, CMP3M, ICA, PHOS3, MG3 ####[id number] [place], [place] AST [Catalytic activity/Vol] 23 U/L Normal 15-46 [facility] Comment on above: Performed By: #### H EMDF, CMP3M, ICA, PHOS3, MG3 ####[id number] [place], [place] Bilirubin [Mass/Vol] 0.4 mg/dL Normal 0.2-1.3 [facility] Comment on above: Performed By: #### H EMDF, CMP3M, ICA, PHOS3, MG3 ####[id number] [place], [place] CO2 [Moles/Vol] 29 mmol/L Normal 22-30 [facility] Comment on above: Performed By: #### H EMDF, CMP3M, ICA, PHOS3, MG3 ####[address] Glucose [Mass/Vol] 154 mg/dL High 70-100 [facility] Comment on above: Performed By: #### H EMDF, CMP3M, ICA, PHOS3, MG3 ####[address] Protein [Mass/Vol] 5.8 g/dL Low 6.3-8.2 [facility] Comment on above: Performed By: #### H EMDF, CMP3M, ICA, PHOS3, MG3 ####[address] Urea nitrogen [Mass/Vol] 16 mg/dL Normal 9-20 [facility] Comment on above: Performed By: #### H EMDF, CMP3M, ICA, PHOS3, MG3 ####[address] Creatinine [Mass/Vol] 2.64 mg/dL High 0.52-1.25 [facility] Comment on above: Performed By: #### H EMDF, CMP3M, ICA, PHOS3, MG3 ####[address] GFR/1.73 sq M.predicted among blacks MDRD (S/P/Bld) [Vol rate/Area] 20.1 mL/min/{1.73_m2} Abnormal >60 [facility] Comment on above: Performed By: #### H EMDF, CMP3M, ICA, PHOS3, MG3 ####[id number] [place] [address] GFR/1.73 sq M.predicted among non-blacks MDRD (S/P/Bld) [Vol rate/Area] 17.3 mL/min/{1.73_m2} Abnormal >60 [facility] Comment on above: Result Comment: KDIG O guidelines provide the following GFR categories:Stage GFR(ml/min/1.73 m2) TermsG1 >=90 Normal or highG2 60-89 Mildly decreased*G3a 45-59 Mildly to moderately tynxpxziuV3u 30-44 Moderately to severely decreasedG4 15-29 Severely [...] #### H EMDF, CMP3M, ICA, PHOS3, MG3 ####[id number] [place], [place] Albumin [Mass/Vol] 3.0 g/dL Low 3.5-5.0 [facility] Comment on above: Performed By: #### H EMDF, CMP3M, ICA, PHOS3, MG3 ####[id number] [place], [place] Chloride [Moles/Vol] 102 mmol/L Normal 98-107 [facility] Comment on above: Performed By: #### H EMDF, CMP3M, ICA, PHOS3, MG3 ####[id number] [place] [address] Potassium [Moles/Vol] 3.5 mmol/L Normal 3.5-5.1 [facility] Comment on above: Performed By: #### H EMDF, CMP3M, ICA, PHOS3, MG3 ####[id number] [place] [address] Sodium [Moles/Vol] 139 mmol/L Normal 135-145 [facility] Comment on above: Performed By: #### H EMDCarmelo, CMP3M, ICA, PHOS3, MG3 ####[id number] [place] [address] Glucose,Bedsideon 03-23-2021 Glucose [Mass/Vol] 195 mg/dL High 70-100 [facility] Comment on above: Result Comment: Test performed by glucose meter. Results may be 10%-15% lowerthan serum/plasma values. (CLIA ID [id number]) Performed By: #### B GLU ####[address] [place] [address] Glucose [Mass/Vol] 205 mg/dL High 70-100 [facility] Comment on above: Result Comment: Test performed by glucose meter. Results may be 10%-15% lowerthan serum/plasma values. (CLIA ID [id number]) Performed By: #### B GLU ####[address] [place] [address] Glucose [Mass/Vol] 155 mg/dL High 70-100 [facility] Comment on above: Result Comment: Test performed by glucose meter. Results may be 10%-15% lowerthan serum/plasma values. (CLIA ID [id number]) Performed By: #### B GLU ####[id number] [place] [address] Hemogram w/ Autodiffon 03-23 Abs Baso Cnt 0.0 10*3/uL Normal 0.0-0.2 [facility] Comment on above: Performed By: #### H EMDCarmelo, CMP3M, ICA, PHOS3, MG3 ####[id number] [place] [address] Abs Neutrophile Cnt 2.4 10*3/uL Normal 1.8-7.0 [facility] Comment on above: Performed By: #### H EMDF, CMP3M, ICA, PHOS3, MG3 ####[id number] [place], [place] Basophils/100 WBC (Bld) 0.7 % Normal 0.0-2.0 [facility] Comment on above: Performed By: #### H EMDF, CMP3M, ICA, PHOS3, MG3 ####[address] Eosinophils (Bld) [#/Vol] 0.4 10*3/uL Normal 0.0-0.5 [facility] Comment on above: Performed By: #### H EMDF, CMP3M, ICA, PHOS3, MG3 ####[address] Eosinophils/100 WBC (Bld) 8.2 % High 1.0-6.0 [facility] Comment on above: Performed By: #### H EMDF, CMP3M, ICA, PHOS3, MG3 ####[address] Erythrocyte distribution width (RBC) [Ratio] 17.5 % High 11.5-14.5 [facility] Comment on above: Performed By: #### H EMDF, CMP3M, ICA, PHOS3, MG3 ####[address] Granulocytes/100 WBC (Bld) 55.3 % Normal 40.0-80.0 [facility] Comment on above: Performed By: #### H EMDF, CMP3M, ICA, PHOS3, MG3 ####[address] Hematocrit (Bld) [Volume fraction] 23.7 % Low 35.0-47.0 [facility] Comment on above: Performed By: #### H EMDF, CMP3M, ICA, PHOS3, MG3 ####[address] Hemoglobin (Bld) [Mass/Vol] 7.4 g/dL Low 11.7-16.0 [facility] Comment on above: Performed By: #### H EMDF, CMP3M, ICA, PHOS3, MG3 ####[address] Lymphocytes (Bld) [#/Vol] 1.0 10*3/uL Normal 1.0-4.3 [facility] Comment on above: Performed By: #### H EMDF, CMP3M, ICA, PHOS3, MG3 ####[address] Lymphocytes/100 WBC (Bld) 22.8 % Normal 20.0-40.0 [facility] Comment on above: Performed By: #### H EMDF, CMP3M, ICA, PHOS3, MG3 ####[address] MCH (RBC) [Entitic mass] 27.5 pg Normal 26.0-34.0 [facility] Comment on above: Performed By: #### H EMDF, CMP3M, ICA, PHOS3, MG3 ####[address] MCHC 31.0 % Low 32.0-36.0 [facility] Comment on above: Performed By: #### H EMDF, CMP3M, ICA, PHOS3, MG3 ####[id number] [place], [place] MCV (RBC) [Entitic vol] 88.6 fL Normal 79.0-98.0 [facility] Comment on above: Performed By: #### H EMDF, CMP3M, ICA, PHOS3, MG3 ####[address] Monocytes (Bld) [#/Vol] 0.6 10*3/uL Normal 0.0-0.8 [facility] Comment on above: Performed By: #### H EMDF, CMP3M, ICA, PHOS3, MG3 ####[address] Monocytes/100 WBC (Bld) 13.0 % High 2.0-10.0 [facility] Comment on above: Performed By: #### H EMDF, CMP3M, ICA, PHOS3, MG3 ####[id number] [place], [place] Platelet mean volume (Bld) [Entitic vol] 10.7 fL High 7.4-10.4 [facility] Comment on above: Performed By: #### H EMDF, CMP3M, ICA, PHOS3, MG3 ####[id number] [place], [place] Platelets (Bld) [#/Vol] 162 10*3/uL Normal 140-440 [facility] Comment on above: Performed By: #### H EMDF, CMP3M, ICA, PHOS3, MG3 ####[id number] [place], [place] RBC (Bld) [#/Vol] 2.68 10*6/uL Low 3.80-5.20 [facility] Comment on above: Performed By: #### H EMDF, CMP3M, ICA, PHOS3, MG3 ####[id number] [place], [place] WBC (Bld) [#/Vol] 4.4 10*3/uL Normal 3.6-10.7 [facility] Comment on above: Performed By: #### H EMDF, CMP3M, ICA, PHOS3, MG3 ####[id number] [place], [place] Magnesiumon 03-23-2021 Magnesium [Mass/Vol] 1.9 mg/dL Normal 1.6-2.3 [facility] Comment on above: Performed By: #### H EMDF, CMP3M, ICA, PHOS3, MG3 ####[id number] [place], [place] Phosphoruson 03-23-2021 Phosphate [Mass/Vol] 3.5 mg/dL Normal 2.5-4.5 [facility] Comment on above: Performed By: #### H EMDF, CMP3M, ICA, PHOS3, MG3 ####[id number] [facility] [place] Calcium,Ionizedon 03-22-2021 Ionized Ca,Measured 4.30 mg/dL Normal 4.30-5.20 [facility] Comment on above: Performed By: #### P HOS3, CMP3M, HEMDF, ICA ####[id number] [facility] [place] pH, Ionized Calcium 7.29 Low 7.31-7.46 [facility] Comment on above: Performed By: #### P HOS3, CMP3M, HEMDF, ICA ####[id number] [place], [place] Comp Panel with Mg Reflexon 03-22-2021 ALP [Catalytic activity/Vol] 67 U/L Normal 38-126 [facility] Comment on above: Performed By: #### P HOS3, CMP3M, HEMDF, ICA ####[id number] [place], [place] ALT [Catalytic activity/Vol] 10 U/L Normal 0-34 [facility] Comment on above: Result Comment: The ALT test is performed by an updated assay method.Please note that the reference intervals have beenchanged and are now sex specific. Performed By: #### P HOS3, CMP3M, HEMDF, ICA ####[id number] [facility] [place] [place] Calcium [Mass/Vol] 8.4 mg/dL Normal 8.4-10.4 [facility] Comment on above: Performed By: #### P HOS3, CMP3M, HEMDF, ICA ####[id number] [place], [place] Glucose [Mass/Vol] 153 mg/dL High 70-100 [facility] Comment on above: Performed By: #### P HOS3, CMP3M, HEMDF, ICA ####[id number] [place], [place] Urea nitrogen [Mass/Vol] 23 mg/dL High 9-20 [facility] Comment on above: Performed By: #### P HOS3, CMP3M, HEMDF, ICA ####[id number] [place], [place] Anion gap [Moles/Vol] 9 mmol/L Normal 3-13 [facility] Comment on above: Performed By: #### P HOS3, CMP3M, HEMDF, ICA ####[id number] [place], [place] AST [Catalytic activity/Vol] 25 U/L Normal 15-46 [facility] Comment on above: Performed By: #### P HOS3, CMP3M, HEMDF, ICA ####[id number] [place], [place] Bilirubin [Mass/Vol] 0.4 mg/dL Normal 0.2-1.3 [facility] Comment on above: Performed By: #### P HOS3, CMP3M, HEMDF, ICA ####[address] CO2 [Moles/Vol] 27 mmol/L Normal 22-30 [facility] Comment on above: Performed By: #### P HOS3, CMP3M, HEMDF, ICA ####[address] [place], [place] Creatinine [Mass/Vol] 3.20 mg/dL High 0.52-1.25 [facility] Comment on above: Performed By: #### P HOS3, CMP3M, HEMDF, ICA ####[id number] [place], [place] GFR/1.73 sq M.predicted among blacks MDRD (S/P/Bld) [Vol rate/Area] 15.9 mL/min/{1.73_m2} Abnormal >60 [facility] Comment on above: Performed By: #### P HOS3, CMP3M, HEMDF, ICA ####[id number] [place], [place] GFR/1.73 sq M.predicted among non-blacks MDRD (S/P/Bld) [Vol rate/Area] 13.7 mL/min/{1.73_m2} Abnormal >60 [facility] Comment on above: Result Comment: KDIG O guidelines provide the following GFR categories:Stage GFR(ml/min/1.73 m2) TermsG1 >=90 Normal or highG2 60-89 Mildly decreased*G3a 45-59 Mildly to moderately feywdjqgkD1a 30-44 Moderately to severely decreasedG4 15-29 Severely [...] By: #### P HOS3, CMP3M, HEMDF, ICA ####[facility] [employer] [place], [place] Protein [Mass/Vol] 5.7 g/dL Low 6.3-8.2 [facility] Comment on above: Performed By: #### P HOS3, CMP3M, HEMDF, ICA ####[facility] [employer] [id number] [place] [address] Chloride [Moles/Vol] 103 mmol/L Normal 98-107 [facility] Comment on above: Performed By: #### P HOS3, CMP3M, HEMDF, ICA ####[facility] [employer] [place] [address] Potassium [Moles/Vol] 3.7 mmol/L Normal 3.5-5.1 [facility] Comment on above: Performed By: #### P HOS3, CMP3M, HEMDF, ICA ####[facility] [employer] [id number] [place] [address] Sodium [Moles/Vol] 139 mmol/L Normal 135-145 [facility] Comment on above: Performed By: #### P HOS3, CMP3M, HEMDF, ICA ####[id number] [place], [place] Albumin [Mass/Vol] 3.0 g/dL Low 3.5-5.0 [facility] Comment on above: Performed By: #### P HOS3, CMP3M, HEMDF, ICA ####[id number] [place] [address] Glucose,Bedsideon 03-22-2021 Glucose [Mass/Vol] 168 mg/dL High 70-100 [facility] Comment on above: Result Comment: Test performed by glucose meter. Results may be 10%-15% lowerthan serum/plasma values. (CLIA ID [id number]) Performed By: #### B GLU ####[address] [place], [place] Glucose [Mass/Vol] 176 mg/dL High 70-100 [facility] Comment on above: Result Comment: Test performed by glucose meter. Results may be 10%-15% lowerthan serum/plasma values. (CLIA ID [id number]) Performed By: #### B GLU ####[address] [place], [place] Glucose [Mass/Vol] 166 mg/dL High 70-100 [facility] Comment on above: Result Comment: Test performed by glucose meter. Results may be 10%-15% lowerthan serum/plasma values. (CLIA ID [id number]) Performed By: #### B GLU ####[address] [place], [place] Hemogram w/ Autodiffon 03-22 Abs Baso Cnt 0.0 10*3/uL Normal 0.0-0.2 [facility] Comment on above: Performed By: #### P HOS3, CMP3M, HEMDF, ICA ####[id number] [place], [place] Abs Neutrophile Cnt 2.7 10*3/uL Normal 1.8-7.0 [facility] Comment on above: Performed By: #### P HOS3, CMP3M, HEMDF, ICA ####[address] Basophils/100 WBC (Bld) 0.8 % Normal 0.0-2.0 [facility] Comment on above: Performed By: #### P HOS3, CMP3M, HEMDF, ICA ####[address] Eosinophils (Bld) [#/Vol] 0.4 10*3/uL Normal 0.0-0.5 [facility] Comment on above: Performed By: #### P HOS3, CMP3M, HEMDF, ICA ####[address] Eosinophils/100 WBC (Bld) 8.7 % High 1.0-6.0 [facility] Comment on above: Performed By: #### P HOS3, CMP3M, HEMDF, ICA ####[address] Erythrocyte distribution width (RBC) [Ratio] 17.3 % High 11.5-14.5 [facility] Comment on above: Performed By: #### P HOS3, CMP3M, HEMDF, ICA ####[address] Granulocytes/100 WBC (Bld) 59.3 % Normal 40.0-80.0 [facility] Comment on above: Performed By: #### P HOS3, CMP3M, HEMDF, ICA ####[address] Hematocrit (Bld) [Volume fraction] 23.1 % Low 35.0-47.0 [facility] Comment on above: Performed By: #### P HOS3, CMP3M, HEMDF, ICA ####[address] Hemoglobin (Bld) [Mass/Vol] 7.2 g/dL Low 11.7-16.0 [facility] Comment on above: Performed By: #### P HOS3, CMP3M, HEMDF, ICA ####[address] Lymphocytes (Bld) [#/Vol] 0.9 10*3/uL Low 1.0-4.3 [facility] Comment on above: Performed By: #### P HOS3, CMP3M, HEMDF, ICA ####[address] Lymphocytes/100 WBC (Bld) 18.8 % Low 20.0-40.0 [facility] Comment on above: Performed By: #### P HOS3, CMP3M, HEMDF, ICA ####[address] MCH (RBC) [Entitic mass] 27.3 pg Normal 26.0-34.0 [facility] Comment on above: Performed By: #### P HOS3, CMP3M, HEMDF, ICA ####[address] MCHC 31.1 % Low 32.0-36.0 [facility] Comment on above: Performed By: #### P HOS3, CMP3M, HEMDF, ICA ####[address] MCV (RBC) [Entitic vol] 87.6 fL Normal 79.0-98.0 [facility] Comment on above: Performed By: #### P HOS3, CMP3M, HEMDF, ICA ####[address] Monocytes (Bld) [#/Vol] 0.6 10*3/uL Normal 0.0-0.8 [facility] Comment on above: Performed By: #### P HOS3, CMP3M, HEMDF, ICA ####[address] Monocytes/100 WBC (Bld) 12.4 % High 2.0-10.0 [facility] Comment on above: Performed By: #### P HOS3, CMP3M, HEMDF, ICA ####[id number] [place], [place] Platelet mean volume (Bld) [Entitic vol] 10.4 fL Normal 7.4-10.4 [facility] Comment on above: Performed By: #### P HOS3, CMP3M, HEMDF, ICA ####[address] [place], [place] Platelets (Bld) [#/Vol] 154 10*3/uL Normal 140-440 [facility] Comment on above: Performed By: #### P HOS3, CMP3M, HEMDF, ICA ####[id number] [place], [place] RBC (Bld) [#/Vol] 2.64 10*6/uL Low 3.80-5.20 [facility] Comment on above: Performed By: #### P HOS3, CMP3M, HEMDF, ICA ####[address] [place], [place] WBC (Bld) [#/Vol] 4.5 10*3/uL Normal 3.6-10.7 [facility] Comment on above: Performed By: #### P HOS3, CMP3M, HEMDF, ICA ####[id number] [place], [place] Phosphoruson 03-22-2021 Phosphate [Mass/Vol] 4.2 mg/dL Normal 2.5-4.5 [facility] Comment on above: Performed By: #### P HOS3, CMP3M, HEMDF, ICA ####[id number] [place], [place] Arterial Blood Gaseson 03-21 CO2 [Moles/Vol] 29.9 mmol/L High 23.0-27.0 [facility] Comment on above: Performed By: #### A BG, ICA, PHOS3, HEMDF, CMP3M ####[address] [place], [place] HCO3 (Bld) [Moles/Vol] 28.2 mmol/L High 21.0-25.0 [facility] Comment on above: Performed By: #### A BG, ICA, PHOS3, HEMDF, CMP3M ####[id number] [place], [place] Hemoglobin (Bld) [Mass/Vol] 9.1 g/dL Normal ScreenOnly [facility] Comment on above: Performed By: #### A BG, ICA, PHOS3, HEMDF, CMP3M ####[id number] [place], [place] Oxygen (Bld) [Partial pressure] 155.5 mm[Hg] High 80.0-100.0 [facility] Comment on above: Performed By: #### A BG, ICA, PHOS3, HEMDF, CMP3M ####[id number] [place], [place] Oxygen saturation in Blood 99.2 % Normal 95.0-100.0 [facility] Comment on above: Performed By: #### A BG, ICA, PHOS3, HEMDF, CMP3M ####[address] pCO2 55.8 mm[Hg] High 35.0-45.0 [facility] Comment on above: Performed By: #### A BG, ICA, PHOS3, HEMDF, CMP3M ####[address] pH 7.321 Low 7.350-7.450 [facility] Comment on above: Performed By: #### A BG, ICA, PHOS3, HEMDF, CMP3M ####[address] [place], [place] Std Base Excess 1.5 mmol/L Normal -3.0-3.0 [facility] Comment on above: Performed By: #### A BG, ICA, PHOS3, HEMDF, CMP3M ####[address] FIO2 No data Normal [facility] Comment on above: Performed By: #### A BG, ICA, PHOS3, HEMDF, CMP3M ####[id number] [place], [place] Calcium,Ionizedon 03-21-2021 Ionized Ca,Measured 4.40 mg/dL Normal 4.30-5.20 [facility] Comment on above: Performed By: #### A BG, ICA, PHOS3, HEMDF, CMP3M ####[id number] . [place], [place] pH, Ionized Calcium 7.35 Normal 7.31-7.46 [facility] Comment on above: Performed By: #### A BG, ICA, PHOS3, HEMDF, CMP3M ####[address] Comp Panel with Mg Reflexon 03-21-2021 Calcium [Mass/Vol] 8.7 mg/dL Normal 8.4-10.4 [facility] Comment on above: Performed By: #### A BG, ICA, PHOS3, HEMDF, CMP3M ####[address] ALP [Catalytic activity/Vol] 81 U/L Normal 38-126 [facility] Comment on above: Performed By: #### A BG, ICA, PHOS3, HEMDF, CMP3M ####[address] ALT [Catalytic activity/Vol] 13 U/L Normal 0-34 [facility] Comment on above: Result Comment: The ALT test is performed by an updated assay method.Please note that the reference intervals have beenchanged and are now sex specific. Performed By: #### A BG, ICA, PHOS3, HEMDF, CMP3M ####[address] Anion gap [Moles/Vol] 7 mmol/L Normal 3-13 [facility] Comment on above: Performed By: #### A BG, ICA, PHOS3, HEMDF, CMP3M ####[facility] [place], [place] AST [Catalytic activity/Vol] 32 U/L Normal 15-46 [facility] Comment on above: Performed By: #### A BG, ICA, PHOS3, HEMDF, CMP3M ####[facility] [place], [place] Bilirubin [Mass/Vol] 0.6 mg/dL Normal 0.2-1.3 [facility] Comment on above: Performed By: #### A BG, ICA, PHOS3, HEMDF, CMP3M ####[id number] [place], [place] CO2 [Moles/Vol] 26 mmol/L Normal 22-30 [facility] [facility] Comment on above: Performed By: #### A BG, ICA, PHOS3, HEMDF, CMP3M ####[address] [place], [place] Creatinine [Mass/Vol] 2.67 mg/dL High 0.52-1.25 [facility] Comment on above: Performed By: #### A BG, ICA, PHOS3, HEMDF, CMP3M ####[address] [place], [place] GFR/1.73 sq M.predicted among blacks MDRD (S/P/Bld) [Vol rate/Area] 19.8 mL/min/{1.73_m2} Abnormal >60 [facility] Comment on above: Performed By: #### A BG, ICA, PHOS3, HEMDF, CMP3M ####[address] [place] [address] GFR/1.73 sq M.predicted among non-blacks MDRD (S/P/Bld) [Vol rate/Area] 17.1 mL/min/{1.73_m2} Abnormal >60 [facility] Comment on above: Result Comment: KDIG O guidelines provide the following GFR categories:Stage GFR(ml/min/1.73 m2) TermsG1 >=90 Normal or highG2 60-89 Mildly decreased*G3a 45-59 Mildly to moderately [id number] 30-44 Moderately to severely decreasedG4 15-29 Severely [...] #### A BG, ICA, PHOS3, HEMDF, CMP3M ####[address] [place], [place] Glucose [Mass/Vol] 119 mg/dL High 70-100 [facility] Comment on above: Performed By: #### A BG, ICA, PHOS3, HEMDF, CMP3M ####[address] Protein [Mass/Vol] 6.4 g/dL Normal 6.3-8.2 [facility] Comment on above: Performed By: #### A BG, ICA, PHOS3, HEMDF, CMP3M ####[address] [place], [place] Urea nitrogen [Mass/Vol] 18 mg/dL Normal 9-20 [facility] Comment on above: Performed By: #### A BG, ICA, PHOS3, HEMDF, CMP3M ####[address] [place], [place] Albumin [Mass/Vol] 3.2 g/dL Low 3.5-5.0 [facility] Comment on above: Performed By: #### A BG, ICA, PHOS3, HEMDF, CMP3M ####[address] Potassium [Moles/Vol] 4.0 mmol/L Normal 3.5-5.1 [facility] Comment on above: Performed By: #### A BG, ICA, PHOS3, HEMDF, CMP3M ####[facility] [place] [address] Sodium [Moles/Vol] 138 mmol/L Normal 135-145 [facility] Comment on above: Performed By: #### A BG, ICA, PHOS3, HEMDF, CMP3M ####[facility] [place] [address] Chloride [Moles/Vol] 104 mmol/L Normal 98-107 [facility] Comment on above: Performed By: #### A BG, ICA, PHOS3, HEMDF, CMP3M ####[address] [facility] [address] Glucose,Bedsideon 03-21-2021 Glucose [Mass/Vol] 182 mg/dL High 70-100 [facility] Comment on above: Result Comment: Test performed by glucose meter. Results may be 10%-15% lowerthan serum/plasma values. (CLIA ID [id number]) Performed By: #### B GLU ####[address] [place] [address] Glucose [Mass/Vol] 188 mg/dL High 70-100 [facility] Comment on above: Result Comment: Test performed by glucose meter. Results may be 10%-15% lowerthan serum/plasma values. (CLIA ID [id number]) Performed By: #### B GLU ####[facility] [employer] [id number] [place] [address] Glucose [Mass/Vol] 169 mg/dL High 70-100 [facility] Comment on above: Result Comment: Test performed by glucose meter. Results may be 10%-15% lowerthan serum/plasma values. (CLIA ID [id number]) Performed By: #### B GLU ####[facility] [employer] [id number] [place] [address] Glucose [Mass/Vol] 113 mg/dL High 70-100 [facility] Comment on above: Result Comment: Test performed by glucose meter. Results may be 10%-15% lowerthan serum/plasma values. (CLIA ID [id number]) Performed By: #### B GLU ####[address] Hemogram w/ Autodiffon 03-21 Abs Baso Cnt 0.1 10*3/uL Normal 0.0-0.2 [facility] Comment on above: Performed By: #### A BG, ICA, PHOS3, HEMDF, CMP3M ####[address] [place], [place] Abs Neutrophile Cnt 3.6 10*3/uL Normal 1.8-7.0 [facility] Comment on above: Performed By: #### A BG, ICA, PHOS3, HEMDF, CMP3M ####[address] Basophils/100 WBC (Bld) 0.9 % Normal 0.0-2.0 [facility] Comment on above: Performed By: #### A BG, ICA, PHOS3, HEMDF, CMP3M ####[address] Eosinophils (Bld) [#/Vol] 0.5 10*3/uL Normal 0.0-0.5 [facility] Comment on above: Performed By: #### A BG, ICA, PHOS3, HEMDF, CMP3M ####[address] Eosinophils/100 WBC (Bld) 8.7 % High 1.0-6.0 [facility] Comment on above: Performed By: #### A BG, ICA, PHOS3, HEMDF, CMP3M ####[address] Erythrocyte distribution width (RBC) [Ratio] 17.0 % High 11.5-14.5 [facility] Comment on above: Performed By: #### A BG, ICA, PHOS3, HEMDF, CMP3M ####[address] Granulocytes/100 WBC (Bld) 62.2 % Normal 40.0-80.0 [facility] Comment on above: Performed By: #### A BG, ICA, PHOS3, HEMDF, CMP3M ####[address] [place], [place] Hematocrit (Bld) [Volume fraction] 27.3 % Low 35.0-47.0 [facility] Comment on above: Performed By: #### A BG, ICA, PHOS3, HEMDF, CMP3M ####[address] [place], [place] Hemoglobin (Bld) [Mass/Vol] 8.5 g/dL Low 11.7-16.0 [facility] Comment on above: Performed By: #### A BG, ICA, PHOS3, HEMDF, CMP3M ####[address] [place], [place] Lymphocytes (Bld) [#/Vol] 1.1 10*3/uL Normal 1.0-4.3 [facility] Comment on above: Performed By: #### A BG, ICA, PHOS3, HEMDF, CMP3M ####[address] [place], [place] Lymphocytes/100 WBC (Bld) 18.3 % Low 20.0-40.0 [facility] Comment on above: Performed By: #### A BG, ICA, PHOS3, HEMDF, CMP3M ####[address] [place], [place] MCH (RBC) [Entitic mass] 27.4 pg Normal 26.0-34.0 [facility] Comment on above: Performed By: #### A BG, ICA, PHOS3, HEMDF, CMP3M ####[address] [place], [place] MCHC 31.2 % Low 32.0-36.0 [facility] Comment on above: Performed By: #### A BG, ICA, PHOS3, HEMDF, CMP3M ####[address] MCV (RBC) [Entitic vol] 87.8 fL Normal 79.0-98.0 [facility] Comment on above: Performed By: #### A BG, ICA, PHOS3, HEMDF, CMP3M ####[address] [place], [place] Monocytes (Bld) [#/Vol] 0.6 10*3/uL Normal 0.0-0.8 [facility] Comment on above: Performed By: #### A BG, ICA, PHOS3, HEMDF, CMP3M ####[address] Monocytes/100 WBC (Bld) 9.9 % Normal 2.0-10.0 [facility] Comment on above: Performed By: #### A BG, ICA, PHOS3, HEMDF, CMP3M ####[address] Platelet mean volume (Bld) [Entitic vol] 9.9 fL Normal 7.4-10.4 [facility] Comment on above: Performed By: #### A BG, ICA, PHOS3, HEMDF, CMP3M ####[address] Platelets (Bld) [#/Vol] 176 10*3/uL Normal 140-440 [facility] Comment on above: Performed By: #### A BG, ICA, PHOS3, HEMDF, CMP3M ####[address] RBC (Bld) [#/Vol] 3.11 10*6/uL Low 3.80-5.20 [facility] Comment on above: Performed By: #### A BG, ICA, PHOS3, HEMDF, CMP3M ####[address] WBC (Bld) [#/Vol] 5.9 10*3/uL Normal 3.6-10.7 [facility] Comment on above: Performed By: #### A BG, ICA, PHOS3, HEMDF, CMP3M ####[address] [place], [place] Phosphoruson 03-21-2021 Phosphate [Mass/Vol] 3.9 mg/dL Normal 2.5-4.5 [facility] Comment on above: Performed By: #### A BG, ICA, PHOS3, HEMDF, CMP3M ####[address] [place], [place] XA Special Angiography Proce dureon 03-21-2021 XA Special Angiography Procedure Normal [facility] XA Special Angiography Procedure Normal [facility] Arterial Blood Gaseson 03-20 CO2 [Moles/Vol] 30.5 mmol/L High 23.0-27.0 [facility] Comment on above: Performed By: #### I CA, PHOS3, HEMDF, ABG, CMP3M ####[address] HCO3 (Bld) [Moles/Vol] 29.0 mmol/L High 21.0-25.0 [facility] Comment on above: Performed By: #### I CA, PHOS3, HEMDF, ABG, CMP3M ####[address] [place], [place] Hemoglobin (Bld) [Mass/Vol] 8.9 g/dL Normal ScreenOnly [facility] Comment on above: Performed By: #### I CA, PHOS3, HEMDF, ABG, CMP3M ####[address] [place], [place] Oxygen (Bld) [Partial pressure] 147.6 mm[Hg] High 80.0-100.0 [facility] Comment on above: Performed By: #### I CA, PHOS3, HEMDF, ABG, CMP3M ####[address] [place], [place] Oxygen saturation in Blood 99.3 % Normal 95.0-100.0 [facility] Comment on above: Performed By: #### I CA, PHOS3, HEMDF, ABG, CMP3M ####[address] pCO2 47.9 mm[Hg] High 35.0-45.0 [facility] Comment on above: Performed By: #### I CA, PHOS3, HEMDF, ABG, CMP3M ####[address] pH 7.400 Normal 7.350-7.450 [facility] Comment on above: Performed By: #### I CA, PHOS3, HEMDF, ABG, CMP3M ####[address] Std Base Excess 3.7 mmol/L High -3.0-3.0 [facility] Comment on above: Performed By: #### I CA, PHOS3, HEMDF, ABG, CMP3M ####[address] FIO2 No data Normal [facility] Comment on above: Performed By: #### I CA, PHOS3, HEMDF, ABG, CMP3M ####[address] CR Chest Portableon 03-20-20 21 CR Chest Portable Normal [facility] Calcium,Ionizedon 03-20-2021 Ionized Ca,Measured 4.20 mg/dL Low 4.30-5.20 [facility] Comment on above: Performed By: #### I CA, PHOS3, HEMDF, ABG, CMP3M ####[address] pH, Ionized Calcium 7.42 Normal 7.31-7.46 [facility] Comment on above: Performed By: #### I CA, PHOS3, HEMDF, ABG, CMP3M ####[address] Comp Panel with Mg Reflexon 03-20-2021 ALP [Catalytic activity/Vol] 80 U/L Normal 38-126 [facility] Comment on above: Performed By: #### I CA, PHOS3, HEMDF, ABG, CMP3M ####[address] ALT [Catalytic activity/Vol] 14 U/L Normal 0-34 [facility] Comment on above: Result Comment: The ALT test is performed by an updated assay method.Please note that the reference intervals have beenchanged and are now sex specific. Performed By: #### I CA, PHOS3, HEMDF, ABG, CMP3M ####[address] [address] AST [Catalytic activity/Vol] 32 U/L Normal 15-46 [facility] Comment on above: Performed By: #### I CA, PHOS3, HEMDF, ABG, CMP3M ####[address] [facility] [address] Calcium [Mass/Vol] 8.4 mg/dL Normal 8.4-10.4 [facility] Comment on above: Performed By: #### I CA, PHOS3, HEMDF, ABG, CMP3M ####[address] [facility] [address] Glucose [Mass/Vol] 135 mg/dL High 70-100 [facility] Comment on above: Performed By: #### I CA, PHOS3, HEMDF, ABG, CMP3M ####[address] [facility] [address] Protein [Mass/Vol] 6.2 g/dL Low 6.3-8.2 [facility] Comment on above: Performed By: #### I CA, PHOS3, HEMDF, ABG, CMP3M ####[address] [facility] [facility] [address] Urea nitrogen [Mass/Vol] 16 mg/dL Normal 9-20 [facility] Comment on above: Performed By: #### I CA, PHOS3, HEMDF, ABG, CMP3M ####[address] [facility] [address] Anion gap [Moles/Vol] 6 mmol/L Normal 3-13 [facility] Comment on above: Performed By: #### I CA, PHOS3, HEMDF, ABG, CMP3M ####[address] [place], [place] Bilirubin [Mass/Vol] 0.5 mg/dL Normal 0.2-1.3 [facility] Comment on above: Performed By: #### I CA, PHOS3, HEMDF, ABG, CMP3M ####[address] [place], [place] CO2 [Moles/Vol] 28 mmol/L Normal 22-30 [facility] Comment on above: Performed By: #### I CA, PHOS3, HEMDF, ABG, CMP3M ####[address] [place], [place] Creatinine [Mass/Vol] 2.31 mg/dL High 0.52-1.25 [facility] Comment on above: Performed By: #### I CA, PHOS3, HEMDF, ABG, CMP3M ####[address] [place], [place] GFR/1.73 sq M.predicted among blacks MDRD (S/P/Bld) [Vol rate/Area] 23.6 mL/min/{1.73_m2} Abnormal >60 [facility] Comment on above: Performed By: #### I CA, PHOS3, HEMDF, ABG, CMP3M ####[address] [place], [place] GFR/1.73 sq M.predicted among non-blacks MDRD (S/P/Bld) [Vol rate/Area] 20.4 mL/min/{1.73_m2} Abnormal >60 [facility] Comment on above: Result Comment: KDIG O guidelines provide the following GFR categories:Stage GFR(ml/min/1.73 m2) TermsG1 >=90 Normal or highG2 60-89 Mildly decreased*G3a 45-59 Mildly to moderately [id number] 30-44 Moderately to severely decreasedG4 15-29 Severely [...] #### I CA, PHOS3, HEMDF, ABG, CMP3M ####[facility] [employer] [id number] [place] [address] Albumin [Mass/Vol] 3.2 g/dL Low 3.5-5.0 [facility] Comment on above: Performed By: #### I CA, PHOS3, HEMDF, ABG, CMP3M ####[address] [place] [address] Chloride [Moles/Vol] 102 mmol/L Normal 98-107 [facility] Comment on above: Performed By: #### I CA, PHOS3, HEMDF, ABG, CMP3M ####[address] [place] [address] Potassium [Moles/Vol] 3.6 mmol/L Normal 3.5-5.1 [facility] Comment on above: Performed By: #### I CA, PHOS3, HEMDF, ABG, CMP3M ####[address] [place] [address] Sodium [Moles/Vol] 136 mmol/L Normal 135-145 [facility] Comment on above: Performed By: #### I CA, PHOS3, HEMDF, ABG, CMP3M ####[facility] [employer] [id number] [place] [address] Glucose,Bedsideon 03-20-2021 Glucose [Mass/Vol] 125 mg/dL High 70-100 [facility] Comment on above: Result Comment: Test performed by glucose meter. Results may be 10%-15% lowerthan serum/plasma values. (CLIA ID [id number]) Performed By: #### B GLU ####[address] [place], [place] Glucose [Mass/Vol] 129 mg/dL High 70-100 [facility] Comment on above: Result Comment: Test performed by glucose meter. Results may be 10%-15% lowerthan serum/plasma values. (CLIA ID [id number]) Performed By: #### B GLU ####[address] [place], [place] Glucose [Mass/Vol] 131 mg/dL High 70-100 [facility] Comment on above: Result Comment: Test performed by glucose meter. Results may be 10%-15% lowerthan serum/plasma values. (CLIA ID [id number]) Performed By: #### B GLU ####[address] [place], [place] Glucose [Mass/Vol] 150 mg/dL High 70-100 [facility] Comment on above: Result Comment: Test performed by glucose meter. Results may be 10%-15% lowerthan serum/plasma values. (CLIA ID [id number]) Performed By: #### B GLU ####[address] Hemogram w/ Autodiffon 03-20 Abs Baso Cnt 0.1 10*3/uL Normal 0.0-0.2 [facility] Comment on above: Performed By: #### I CA, PHOS3, HEMDF, ABG, CMP3M ####[address] [place], [place] Abs Neutrophile Cnt 4.6 10*3/uL Normal 1.8-7.0 [facility] Comment on above: Performed By: #### I CA, PHOS3, HEMDF, ABG, CMP3M ####[address] Basophils/100 WBC (Bld) 1.1 % Normal 0.0-2.0 [facility] Comment on above: Performed By: #### I CA, PHOS3, HEMDF, ABG, CMP3M ####[address] [address] [place], [place] Eosinophils (Bld) [#/Vol] 0.3 10*3/uL Normal 0.0-0.5 [facility] Comment on above: Performed By: #### I CA, PHOS3, HEMDF, ABG, CMP3M ####[address] [place], [place] Eosinophils/100 WBC (Bld) 4.7 % Normal 1.0-6.0 [facility] Comment on above: Performed By: #### I CA, PHOS3, HEMDF, ABG, CMP3M ####[address] Erythrocyte distribution width (RBC) [Ratio] 16.7 % High 11.5-14.5 [facility] Comment on above: Performed By: #### I CA, PHOS3, HEMDF, ABG, CMP3M ####[address] Granulocytes/100 WBC (Bld) 69.0 % Normal 40.0-80.0 [facility] Comment on above: Performed By: #### I CA, PHOS3, HEMDF, ABG, CMP3M ####[address] Hematocrit (Bld) [Volume fraction] 26.4 % Low 35.0-47.0 [facility] Comment on above: Performed By: #### I CA, PHOS3, HEMDF, ABG, CMP3M ####[address] Hemoglobin (Bld) [Mass/Vol] 8.4 g/dL Low 11.7-16.0 [facility] Comment on above: Performed By: #### I CA, PHOS3, HEMDF, ABG, CMP3M ####[address] Lymphocytes (Bld) [#/Vol] 1.2 10*3/uL Normal 1.0-4.3 [facility] Comment on above: Performed By: #### I CA, PHOS3, HEMDF, ABG, CMP3M ####[address] Lymphocytes/100 WBC (Bld) 17.4 % Low 20.0-40.0 [facility] Comment on above: Performed By: #### I CA, PHOS3, HEMDF, ABG, CMP3M ####[address] [place], [place] MCH (RBC) [Entitic mass] 28.0 pg Normal 26.0-34.0 [facility] Comment on above: Performed By: #### I CA, PHOS3, HEMDF, ABG, CMP3M ####[address] [place], [place] MCHC 31.9 % Low 32.0-36.0 [facility] Comment on above: Performed By: #### I CA, PHOS3, HEMDF, ABG, CMP3M ####[address] MCV (RBC) [Entitic vol] 87.7 fL Normal 79.0-98.0 [facility] Comment on above: Performed By: #### I CA, PHOS3, HEMDF, ABG, CMP3M ####[address] [place], [place] Monocytes (Bld) [#/Vol] 0.5 10*3/uL Normal 0.0-0.8 [facility] Comment on above: Performed By: #### I CA, PHOS3, HEMDF, ABG, CMP3M ####[address] Monocytes/100 WBC (Bld) 7.8 % Normal 2.0-10.0 [facility] Comment on above: Performed By: #### I CA, PHOS3, HEMDF, ABG, CMP3M ####[address] Platelet mean volume (Bld) [Entitic vol] 9.6 fL Normal 7.4-10.4 [facility] Comment on above: Performed By: #### I CA, PHOS3, HEMDF, ABG, CMP3M ####[address] [place], [place] Platelets (Bld) [#/Vol] 166 10*3/uL Normal 140-440 [facility] Comment on above: Performed By: #### I CA, PHOS3, HEMDF, ABG, CMP3M ####[address] RBC (Bld) [#/Vol] 3.01 10*6/uL Low 3.80-5.20 [facility] Comment on above: Performed By: #### I CA, PHOS3, HEMDF, ABG, CMP3M ####[address] WBC (Bld) [#/Vol] 6.6 10*3/uL Normal 3.6-10.7 [facility] Comment on above: Performed By: #### I CA, PHOS3, HEMDF, ABG, CMP3M ####[address] [place], [place] Phosphoruson 03-20-2021 Phosphate [Mass/Vol] 3.2 mg/dL Normal 2.5-4.5 [facility] Comment on above: Performed By: #### I CA, PHOS3, HEMDF, ABG, CMP3M ####[address] Arterial Blood Gaseson 03-19 CO2 [Moles/Vol] 28.6 mmol/L High 23.0-27.0 [facility] Comment on above: Performed By: #### A BG, MG3, CMP3M, ICA, PHOS3, HEMDF ####[address] [place], [place] HCO3 (Bld) [Moles/Vol] 27.3 mmol/L High 21.0-25.0 [facility] Comment on above: Performed By: #### A BG, MG3, CMP3M, ICA, PHOS3, HEMDF ####[address] [place], [place] Hemoglobin (Bld) [Mass/Vol] 8.5 g/dL Normal ScreenOnly [facility] Comment on above: Performed By: #### A BG, MG3, CMP3M, ICA, PHOS3, HEMDF ####[address] [place], [place] Oxygen (Bld) [Partial pressure] 97.0 mm[Hg] Normal 80.0-100.0 [facility] Comment on above: Performed By: #### A BG, MG3, CMP3M, ICA, PHOS3, HEMDF ####[address] Oxygen saturation in Blood 97.7 % Normal 95.0-100.0 [facility] Comment on above: Performed By: #### A BG, MG3, CMP3M, ICA, PHOS3, HEMDF ####[address] pCO2 41.0 mm[Hg] Normal 35.0-45.0 [facility] Comment on above: Performed By: #### A BG, MG3, CMP3M, ICA, PHOS3, HEMDF ####[address] pH 7.442 Normal 7.350-7.450 [facility] Comment on above: Performed By: #### A BG, MG3, CMP3M, ICA, PHOS3, HEMDF ####[address] [place], [place] Std Base Excess 3.0 mmol/L Normal -3.0-3.0 [facility] Comment on above: Performed By: #### A BG, MG3, CMP3M, ICA, PHOS3, HEMDF ####[address] [place], [place] FIO2 No data Normal [facility] Comment on above: Performed By: #### A BG, MG3, CMP3M, ICA, PHOS3, HEMDF ####[address] [place], [place] CR Chest Portableon 03-19-20 21 CR Chest Portable Normal [facility] Calcium,Ionizedon 03-19-2021 pH, Ionized Calcium 7.48 High 7.31-7.46 [facility] Comment on above: Performed By: #### A BG, MG3, CMP3M, ICA, PHOS3, HEMDF ####[address] [place], [place] Ionized Ca,Measured 4.30 mg/dL Normal 4.30-5.20 [facility] Comment on above: Performed By: #### A BG, MG3, CMP3M, ICA, PHOS3, HEMDF ####[address] [place], [place] Comp Panel with Mg Reflexon 03-19-2021 ALP [Catalytic activity/Vol] 73 U/L Normal 38-126 [facility] Comment on above: Performed By: #### A BG, MG3, CMP3M, ICA, PHOS3, HEMDF ####[id number] [place], [place] ALT [Catalytic activity/Vol] 12 U/L Normal 0-34 [facility] Comment on above: Result Comment: The ALT test is performed by an updated assay method.Please note that the reference intervals have beenchanged and are now sex specific. Performed By: #### A BG, MG3, CMP3M, ICA, PHOS3, HEMDF ####[address] [place], [place] AST [Catalytic activity/Vol] 34 U/L Normal 15-46 [facility] Comment on above: Performed By: #### A BG, MG3, CMP3M, ICA, PHOS3, HEMDF ####[address] [place], [place] Calcium [Mass/Vol] 8.5 mg/dL Normal 8.4-10.4 [facility] Comment on above: Performed By: #### A BG, MG3, CMP3M, ICA, PHOS3, HEMDF ####[address] [place], [place] Glucose [Mass/Vol] 193 mg/dL High 70-100 [facility] Comment on above: Performed By: #### A BG, MG3, CMP3M, ICA, PHOS3, HEMDF ####[address] [place], [place] Protein [Mass/Vol] 5.8 g/dL Low 6.3-8.2 [facility] Comment on above: Performed By: #### A BG, MG3, CMP3M, ICA, PHOS3, HEMDF ####[address] [place], [place] Urea nitrogen [Mass/Vol] 16 mg/dL Normal 9-20 [facility] Comment on above: Performed By: #### A BG, MG3, CMP3M, ICA, PHOS3, HEMDF ####[address] [place], [place] Anion gap [Moles/Vol] 7 mmol/L Normal 3-13 [facility] Comment on above: Performed By: #### A BG, MG3, CMP3M, ICA, PHOS3, HEMDF ####[address] [place], [place] Bilirubin [Mass/Vol] 0.5 mg/dL Normal 0.2-1.3 [facility] Comment on above: Performed By: #### A BG, MG3, CMP3M, ICA, PHOS3, HEMDF ####[address] [place], [place] CO2 [Moles/Vol] 28 mmol/L Normal 22-30 [facility] Comment on above: Performed By: #### A BG, MG3, CMP3M, ICA, PHOS3, HEMDF ####[id number] [place], [place] Creatinine [Mass/Vol] 2.43 mg/dL High 0.52-1.25 [facility] Comment on above: Performed By: #### A BG, MG3, CMP3M, ICA, PHOS3, HEMDF ####[facility] [employer] [id number] [place] [address] GFR/1.73 sq M.predicted among blacks MDRD (S/P/Bld) [Vol rate/Area] 22.2 mL/min/{1.73_m2} Abnormal >60 [facility] Comment on above: Performed By: #### A BG, MG3, CMP3M, ICA, PHOS3, HEMDF ####[facility] [employer] [id number] [place] [address] GFR/1.73 sq M.predicted among non-blacks MDRD (S/P/Bld) [Vol rate/Area] 19.2 mL/min/{1.73_m2} Abnormal >60 [facility] Comment on above: Result Comment: KDIG O guidelines provide the following GFR categories:Stage GFR(ml/min/1.73 m2) TermsG1 >=90 Normal or highG2 60-89 Mildly decreased*G3a 45-59 Mildly to moderately vvhezaxduO4r 30-44 Moderately to severely decreasedG4 15-29 Severely [...] A BG, MG3, CMP3M, ICA, PHOS3, HEMDF ####[facility] [employer] [id number] [place], [place] Potassium [Moles/Vol] 3.5 mmol/L Normal 3.5-5.1 [facility] Comment on above: Performed By: #### A BG, MG3, CMP3M, ICA, PHOS3, HEMDF ####[facility] [employer] [id number] [place] [address] Sodium [Moles/Vol] 137 mmol/L Normal 135-145 [facility] Comment on above: Performed By: #### A BG, MG3, CMP3M, ICA, PHOS3, HEMDF ####[id number] [place] [address] Albumin [Mass/Vol] 3.0 g/dL Low 3.5-5.0 [facility] Comment on above: Performed By: #### A BG, MG3, CMP3M, ICA, PHOS3, HEMDF ####[id number] [place] [address] Chloride [Moles/Vol] 102 mmol/L Normal 98-107 [facility] Comment on above: Performed By: #### A BG, MG3, CMP3M, ICA, PHOS3, HEMDF ####[address] [place] [address] Glucose,Bedsideon 03-19-2021 Glucose [Mass/Vol] 139 mg/dL High 70-100 [facility] Comment on above: Result Comment: Test performed by glucose meter. Results may be 10%-15% lowerthan serum/plasma values. (CLIA ID [id number]) Performed By: #### B GLU ####[facility] [employer] [id number] [place] [address] Glucose [Mass/Vol] 152 mg/dL High 70-100 [facility] Comment on above: Result Comment: Test performed by glucose meter. Results may be 10%-15% lowerthan serum/plasma values. (CLIA ID [id number]) Performed By: #### B GLU ####[facility] [employer] [id number] [place] [address] Glucose [Mass/Vol] 180 mg/dL High 70-100 [facility] Comment on above: Result Comment: Test performed by glucose meter. Results may be 10%-15% lowerthan serum/plasma values. (CLIA ID [id number]) Performed By: #### B GLU ####[facility] [employer] [id number] [place] [address] Glucose [Mass/Vol] 208 mg/dL High 70-100 [facility] Comment on above: Result Comment: Test performed by glucose meter. Results may be 10%-15% lowerthan serum/plasma values. (CLIA ID [id number]) Performed By: #### B GLU ####[address] Hemogram w/ Autodiffon 03-19 Abs Baso Cnt 0.0 10*3/uL Normal 0.0-0.2 [facility] Comment on above: Performed By: #### A BG, MG3, CMP3M, ICA, PHOS3, HEMDF ####[address] [place], [place] Abs Neutrophile Cnt 2.7 10*3/uL Normal 1.8-7.0 [facility] Comment on above: Performed By: #### A BG, MG3, CMP3M, ICA, PHOS3, HEMDF ####[address] Basophils/100 WBC (Bld) 0.8 % Normal 0.0-2.0 [facility] Comment on above: Performed By: #### A BG, MG3, CMP3M, ICA, PHOS3, HEMDF ####[id number] [place], [place] Eosinophils (Bld) [#/Vol] 0.2 10*3/uL Normal 0.0-0.5 [facility] Comment on above: Performed By: #### A BG, MG3, CMP3M, ICA, PHOS3, HEMDF ####[address] [place], [place] Eosinophils/100 WBC (Bld) 5.7 % Normal 1.0-6.0 [facility] Comment on above: Performed By: #### A BG, MG3, CMP3M, ICA, PHOS3, HEMDF ####[address] [place], [place] Erythrocyte distribution width (RBC) [Ratio] 17.4 % High 11.5-14.5 [facility] Comment on above: Performed By: #### A BG, MG3, CMP3M, ICA, PHOS3, HEMDF ####[address] [place], [place] Granulocytes/100 WBC (Bld) 63.4 % Normal 40.0-80.0 [facility] Comment on above: Performed By: #### A BG, MG3, CMP3M, ICA, PHOS3, HEMDF ####[address] [place], [place] Hematocrit (Bld) [Volume fraction] 24.1 % Low 35.0-47.0 [facility] Comment on above: Performed By: #### A BG, MG3, CMP3M, ICA, PHOS3, HEMDF ####[address] Hemoglobin (Bld) [Mass/Vol] 7.7 g/dL Low 11.7-16.0 [facility] Comment on above: Performed By: #### A BG, MG3, CMP3M, ICA, PHOS3, HEMDF ####[id number] [place], [place] Lymphocytes (Bld) [#/Vol] 0.9 10*3/uL Low 1.0-4.3 [facility] Comment on above: Performed By: #### A BG, MG3, CMP3M, ICA, PHOS3, HEMDF ####[address] [place], [place] Lymphocytes/100 WBC (Bld) 20.5 % Normal 20.0-40.0 [facility] Comment on above: Performed By: #### A BG, MG3, CMP3M, ICA, PHOS3, HEMDF ####[address] [place], [place] MCH (RBC) [Entitic mass] 27.9 pg Normal 26.0-34.0 [facility] Comment on above: Performed By: #### A BG, MG3, CMP3M, ICA, PHOS3, HEMDF ####[address] [place], [place] MCHC 32.0 % Normal 32.0-36.0 [facility] Comment on above: Performed By: #### A BG, MG3, CMP3M, ICA, PHOS3, HEMDF ####[address] [place], [place] MCV (RBC) [Entitic vol] 87.3 fL Normal 79.0-98.0 [facility] Comment on above: Performed By: #### A BG, MG3, CMP3M, ICA, PHOS3, HEMDF ####[address] [place], [place] Monocytes (Bld) [#/Vol] 0.4 10*3/uL Normal 0.0-0.8 [facility] Comment on above: Performed By: #### A BG, MG3, CMP3M, ICA, PHOS3, HEMDF ####[address] Monocytes/100 WBC (Bld) 9.6 % Normal 2.0-10.0 [facility] Comment on above: Performed By: #### A BG, MG3, CMP3M, ICA, PHOS3, HEMDF ####[address] [place], [place] Platelet mean volume (Bld) [Entitic vol] 9.9 fL Normal 7.4-10.4 [facility] Comment on above: Performed By: #### A BG, MG3, CMP3M, ICA, PHOS3, HEMDF ####[address] [place], [place] Platelets (Bld) [#/Vol] 145 10*3/uL Normal 140-440 [facility] Comment on above: Performed By: #### A BG, MG3, CMP3M, ICA, PHOS3, HEMDF ####[address] [place], [place] RBC (Bld) [#/Vol] 2.76 10*6/uL Low 3.80-5.20 [facility] Comment on above: Performed By: #### A BG, MG3, CMP3M, ICA, PHOS3, HEMDF ####[address] [place] [address] WBC (Bld) [#/Vol] 4.2 10*3/uL Normal 3.6-10.7 [facility] Comment on above: Performed By: #### A BG, MG3, CMP3M, ICA, PHOS3, HEMDF ####[address] [place] [address] Magnesiumon 03-19-2021 Magnesium [Mass/Vol] 1.8 mg/dL Normal 1.6-2.3 [facility] Comment on above: Performed By: #### A BG, MG3, CMP3M, ICA, PHOS3, HEMDF ####[address] [place] [address] Phosphoruson 03-19-2021 Phosphate [Mass/Vol] 3.4 mg/dL Normal 2.5-4.5 [facility] Comment on above: Performed By: #### A BG, MG3, CMP3M, ICA, PHOS3, HEMDF ####[address] [place] [address] Arterial Blood Gaseson 03-18 CO2 [Moles/Vol] 27.4 mmol/L High 23.0-27.0 [facility] Comment on above: Performed By: #### C MP3M, HEMDF, ABG, PHOS3, ICA ####[address] [place] [address] HCO3 (Bld) [Moles/Vol] 26.0 mmol/L High 21.0-25.0 [facility] Comment on above: Performed By: #### C MP3M, HEMDF, ABG, PHOS3, ICA ####[id number] [place] [address] Hemoglobin (Bld) [Mass/Vol] 12.1 g/dL Normal ScreenOnly [facility] Comment on above: Performed By: #### C MP3M, HEMDF, ABG, PHOS3, ICA ####[address] Oxygen (Bld) [Partial pressure] 145.0 mm[Hg] High 80.0-100.0 [facility] Comment on above: Performed By: #### C MP3M, HEMDF, ABG, PHOS3, ICA ####[address] Oxygen saturation in Blood 99.2 % Normal 95.0-100.0 [facility] Comment on above: Performed By: #### C MP3M, HEMDF, ABG, PHOS3, ICA ####[address] pCO2 46.3 mm[Hg] High 35.0-45.0 [facility] Comment on above: Performed By: #### C MP3M, HEMDF, ABG, PHOS3, ICA ####[address] pH 7.367 Normal 7.350-7.450 [facility] Comment on above: Performed By: #### C MP3M, HEMDF, ABG, PHOS3, ICA ####[address] Std Base Excess 0.3 mmol/L Normal -3.0-3.0 [facility] Comment on above: Performed By: #### C MP3M, HEMDF, ABG, PHOS3, ICA ####[address] FIO2 No data Normal [facility] Comment on above: Performed By: #### C MP3M, HEMDF, ABG, PHOS3, ICA ####[address] CR Chest Portableon 03-18-20 CR Chest Portable Normal [facility] Calcium,Ionizedon 03-18-2021 Ionized Ca,Measured 4.20 mg/dL Low 4.30-5.20 [facility] Comment on above: Performed By: #### C MP3M, HEMDF, ABG, PHOS3, ICA ####[address] [place], [place] pH, Ionized Calcium 7.37 Normal 7.31-7.46 [facility] Comment on above: Performed By: #### C MP3M, HEMDF, ABG, PHOS3, ICA ####[id number] [place], [place] Comp Panel with Mg Reflexon 03-18-2021 ALP [Catalytic activity/Vol] 74 U/L Normal 38-126 [facility] Comment on above: Performed By: #### C MP3M, HEMDF, ABG, PHOS3, ICA ####[id number] [place], [place] ALT [Catalytic activity/Vol] 13 U/L Normal 0-34 [facility] Comment on above: Result Comment: The ALT test is performed by an updated assay method.Please note that the reference intervals have beenchanged and are now sex specific. Performed By: #### C MP3M, HEMDF, ABG, PHOS3, ICA ####[id number] [place], [place] Calcium [Mass/Vol] 8.6 mg/dL Normal 8.4-10.4 [facility] Comment on above: Performed By: #### C MP3M, HEMDF, ABG, PHOS3, ICA ####[address] [place], [place] Glucose [Mass/Vol] 115 mg/dL High 70-100 [facility] Comment on above: Performed By: #### C MP3M, HEMDF, ABG, PHOS3, ICA ####[address] [place], [place] Protein [Mass/Vol] 6.6 g/dL Normal 6.3-8.2 [facility] Comment on above: Performed By: #### C MP3M, HEMDF, ABG, PHOS3, ICA ####[address] [place], [place] Urea nitrogen [Mass/Vol] 18 mg/dL Normal 9-20 [facility] Comment on above: Performed By: #### C MP3M, HEMDF, ABG, PHOS3, ICA ####[address] [place], [place] Anion gap [Moles/Vol] 11 mmol/L Normal 3-13 [facility] Comment on above: Performed By: #### C MP3M, HEMDF, ABG, PHOS3, ICA ####[id number] [place], [place] AST [Catalytic activity/Vol] 33 U/L Normal 15-46 [facility] Comment on above: Performed By: #### C MP3M, HEMDF, ABG, PHOS3, ICA ####[address] [place], [place] Bilirubin [Mass/Vol] 0.6 mg/dL Normal 0.2-1.3 [facility] Comment on above: Performed By: #### C MP3M, HEMDF, ABG, PHOS3, ICA ####[address] [place], [place] CO2 [Moles/Vol] 24 mmol/L Normal 22-30 [facility] Comment on above: Performed By: #### C MP3M, HEMDF, ABG, PHOS3, ICA ####[address] [place], [place] Creatinine [Mass/Vol] 3.09 mg/dL High 0.52-1.25 [facility] Comment on above: Performed By: #### C MP3M, HEMDF, ABG, PHOS3, ICA ####[id number] [place], [place] GFR/1.73 sq M.predicted among blacks MDRD (S/P/Bld) [Vol rate/Area] 16.6 mL/min/{1.73_m2} Abnormal >60 [facility] Comment on above: Performed By: #### C MP3M, HEMDF, ABG, PHOS3, ICA ####[address] [place], [place] GFR/1.73 sq M.predicted among non-blacks MDRD (S/P/Bld) [Vol rate/Area] 14.3 mL/min/{1.73_m2} Abnormal >60 [facility] Comment on above: Result Comment: KDIG O guidelines provide the following GFR categories:Stage GFR(ml/min/1.73 m2) TermsG1 >=90 Normal or highG2 60-89 Mildly decreased*G3a 45-59 Mildly to moderately flidnksnaJ7m 30-44 Moderately to severely decreasedG4 15-29 Severely [...] #### C MP3M, HEMDF, ABG, PHOS3, ICA ####[facility] [employer] [id number] [place], [place] Chloride [Moles/Vol] 102 mmol/L Normal 98-107 [facility] Comment on above: Performed By: #### C MP3M, HEMDF, ABG, PHOS3, ICA ####[address] [place], [place] Potassium [Moles/Vol] 3.6 mmol/L Normal 3.5-5.1 [facility] Comment on above: Performed By: #### C MP3M, HEMDF, ABG, PHOS3, ICA ####[address] [place], [place] Sodium [Moles/Vol] 137 mmol/L Normal 135-145 [facility] Comment on above: Performed By: #### C MP3M, HEMDF, ABG, PHOS3, ICA ####[address] [facility] [place] [address] Albumin [Mass/Vol] 3.5 g/dL Normal 3.5-5.0 [facility] Comment on above: Performed By: #### C MP3M, HEMDF, ABG, PHOS3, ICA ####[address] [facility] [place] [address] Glucose,Bedsideon 03-18-2021 Glucose [Mass/Vol] 179 mg/dL High 70-100 [facility] Comment on above: Result Comment: Test performed by glucose meter. Results may be 10%-15% lowerthan serum/plasma values. (CLIA ID [id number]) Performed By: #### B GLU ####[address] [facility] [address] Glucose [Mass/Vol] 183 mg/dL High 70-100 [facility] Comment on above: Result Comment: Test performed by glucose meter. Results may be 10%-15% lowerthan serum/plasma values. (CLIA ID [id number]) Performed By: #### B GLU ####[facility] [employer] [id number] [facility] [place] [address] Glucose [Mass/Vol] 122 mg/dL High 70-100 [facility] Comment on above: Result Comment: Test performed by glucose meter. Results may be 10%-15% lowerthan serum/plasma values. (CLIA ID [id number]) Performed By: #### B GLU ####[facility] [employer] [id number] [facility] [place] [address] Glucose [Mass/Vol] 116 mg/dL High 70-100 [facility] Comment on above: Result Comment: Test performed by glucose meter. Results may be 10%-15% lowerthan serum/plasma values. (CLIA ID [id number]) Performed By: #### B GLU ####[facility] [employer] [id number] [facility] [place] [address] Glucose [Mass/Vol] 102 mg/dL High 70-100 [facility] Comment on above: Result Comment: Test performed by glucose meter. Results may be 10%-15% lowerthan serum/plasma values. (CLIA ID [id number]) Performed By: #### B GLU ####[address] Hemogram w/ Autodiffon 03-18 Abs Baso Cnt 0.1 10*3/uL Normal 0.0-0.2 [facility] Comment on above: Performed By: #### C MP3M, HEMDF, ABG, PHOS3, ICA ####[address] Abs Neutrophile Cnt 5.6 10*3/uL Normal 1.8-7.0 [facility] Comment on above: Performed By: #### C MP3M, HEMDF, ABG, PHOS3, ICA ####[id number] [place], [place] Basophils/100 WBC (Bld) 0.9 % Normal 0.0-2.0 [facility] Comment on above: Performed By: #### C MP3M, HEMDF, ABG, PHOS3, ICA ####[address] Eosinophils (Bld) [#/Vol] 0.4 10*3/uL Normal 0.0-0.5 [facility] Comment on above: Performed By: #### C MP3M, HEMDF, ABG, PHOS3, ICA ####[id number] [place], [place] Eosinophils/100 WBC (Bld) 4.7 % Normal 1.0-6.0 [facility] Comment on above: Performed By: #### C MP3M, HEMDF, ABG, PHOS3, ICA ####[address] [place], [place] Erythrocyte distribution width (RBC) [Ratio] 16.8 % High 11.5-14.5 [facility] Comment on above: Performed By: #### C MP3M, HEMDF, ABG, PHOS3, ICA ####[address] [place], [place] Granulocytes/100 WBC (Bld) 67.5 % Normal 40.0-80.0 [facility] Comment on above: Performed By: #### C MP3M, HEMDF, ABG, PHOS3, ICA ####[address] [place], [place] Hematocrit (Bld) [Volume fraction] 26.9 % Low 35.0-47.0 [facility] Comment on above: Performed By: #### C MP3M, HEMDF, ABG, PHOS3, ICA ####[address] [place], [place] Hemoglobin (Bld) [Mass/Vol] 8.6 g/dL Low 11.7-16.0 [facility] Comment on above: Performed By: #### C MP3M, HEMDF, ABG, PHOS3, ICA ####[address] [place], [place] Lymphocytes (Bld) [#/Vol] 1.5 10*3/uL Normal 1.0-4.3 [facility] Comment on above: Performed By: #### C MP3M, HEMDF, ABG, PHOS3, ICA ####[address] [place], [place] Lymphocytes/100 WBC (Bld) 18.0 % Low 20.0-40.0 [facility] Comment on above: Performed By: #### C MP3M, HEMDF, ABG, PHOS3, ICA ####[address] [place], [place] MCH (RBC) [Entitic mass] 28.0 pg Normal 26.0-34.0 [facility] Comment on above: Performed By: #### C MP3M, HEMDF, ABG, PHOS3, ICA ####[address] [place] MCHC 32.0 % Normal 32.0-36.0 [facility] Comment on above: Performed By: #### C MP3M, HEMDF, ABG, PHOS3, ICA ####[address] [place], [place] MCV (RBC) [Entitic vol] 87.4 fL Normal 79.0-98.0 [facility] Comment on above: Performed By: #### C MP3M, HEMDF, ABG, PHOS3, ICA ####[facility] [place], [place] Monocytes (Bld) [#/Vol] 0.7 10*3/uL Normal 0.0-0.8 [facility] Comment on above: Performed By: #### C MP3M, HEMDF, ABG, PHOS3, ICA ####[address] [place], [place] Monocytes/100 WBC (Bld) 8.9 % Normal 2.0-10.0 [facility] Comment on above: Performed By: #### C MP3M, HEMDF, ABG, PHOS3, ICA ####[address] [place], [place] Platelet mean volume (Bld) [Entitic vol] 9.4 fL Normal 7.4-10.4 [facility] Comment on above: Performed By: #### C MP3M, HEMDF, ABG, PHOS3, ICA ####[address] [place], [place] Platelets (Bld) [#/Vol] 197 10*3/uL Normal 140-440 [facility] Comment on above: Performed By: #### C MP3M, HEMDF, ABG, PHOS3, ICA ####[address] [place], [place] RBC (Bld) [#/Vol] 3.08 10*6/uL Low 3.80-5.20 [facility] Comment on above: Performed By: #### C MP3M, HEMDF, ABG, PHOS3, ICA ####[address] [place], [place] WBC (Bld) [#/Vol] 8.3 10*3/uL Normal 3.6-10.7 [facility] Comment on above: Performed By: #### C MP3M, HEMDF, ABG, PHOS3, ICA ####[id number] [place] [address] Phosphoruson 03-18-2021 Phosphate [Mass/Vol] 4.3 mg/dL Normal 2.5-4.5 [facility] Comment on above: Performed By: #### C MP3M, HEMDF, ABG, PHOS3, ICA ####[address] [place], [place] Arterial Blood Gaseson 03-17 CO2 [Moles/Vol] 24.4 mmol/L Normal 23.0-27.0 [facility] Comment on above: Performed By: #### A BG, LACT3, HEMOG ####[address] [place], [place] HCO3 (Bld) [Moles/Vol] 23.0 mmol/L Normal 21.0-25.0 [facility] Comment on above: Performed By: #### A BG, LACT3, HEMOG ####[address] [place], [place] Hemoglobin (Bld) [Mass/Vol] 10.2 g/dL Normal ScreenOnly [facility] Comment on above: Performed By: #### A BG, LACT3, HEMOG ####[address] [place], [place] Oxygen (Bld) [Partial pressure] 137.9 mm[Hg] High 80.0-100.0 [facility] Comment on above: Performed By: #### A BG, LACT3, HEMOG ####[address] [place], [place] Oxygen saturation in Blood 98.8 % Normal 95.0-100.0 [facility] Comment on above: Performed By: #### A BG, LACT3, HEMOG ####[address] [place], [place] pCO2 45.3 mm[Hg] High 35.0-45.0 [facility] Comment on above: Performed By: #### A BG, LACT3, HEMOG ####[address] [place], [place] pH 7.324 Low 7.350-7.450 [facility] Comment on above: Performed By: #### A BG, LACT3, HEMOG ####[address] [place], [place] Std Base Excess -3.0 mmol/L Normal -3.0-3.0 [facility] Comment on above: Performed By: #### A BG, LACT3, HEMOG ####[address] [place], [place] FIO2 No data Normal [facility] Comment on above: Performed By: #### A BG, LACT3, HEMOG ####[address] [place], [place] CR Abdomen APon 03-17-2021 CR Abdomen AP Normal [facility] CR Chest Portableon 03-17-20 CR Chest Portable Normal [facility] Calcium,Ionizedon 03-17-2021 Ionized Ca,Measured 4.20 mg/dL Low 4.30-5.20 [facility] Comment on above: Performed By: #### P HOS3, ICA, CMP3M ####[address] [place], [place] pH, Ionized Calcium 7.33 Normal 7.31-7.46 [facility] Comment on above: Performed By: #### P HOS3, ICA, CMP3M ####[address] [place], [place] Comp Panel with Mg Reflexon 03-17-2021 ALP [Catalytic activity/Vol] 81 U/L Normal 38-126 [facility] Comment on above: Performed By: #### P HOS3, ICA, CMP3M ####[address] [place], [place] ALT [Catalytic activity/Vol] 13 U/L Normal 0-34 [facility] Comment on above: Result Comment: The ALT test is performed by an updated assay method.Please note that the reference intervals have beenchanged and are now sex specific. Performed By: #### P HOS3, ICA, CMP3M ####[id number] [place], [place] Anion gap [Moles/Vol] 12 mmol/L Normal 3-13 [facility] Comment on above: Performed By: #### P HOS3, ICA, CMP3M ####[address] AST [Catalytic activity/Vol] 22 U/L Normal 15-46 [facility] Comment on above: Performed By: #### P HOS3, ICA, CMP3M ####[address] Calcium [Mass/Vol] 8.6 mg/dL Normal 8.4-10.4 [facility] Comment on above: Performed By: #### P HOS3, ICA, CMP3M ####[address] CO2 [Moles/Vol] 24 mmol/L Normal 22-30 [facility] Comment on above: Performed By: #### P HOS3, ICA, CMP3M ####[address] Glucose [Mass/Vol] 188 mg/dL High 70-100 [facility] Comment on above: Performed By: #### P HOS3, ICA, CMP3M ####[address] Protein [Mass/Vol] 6.7 g/dL Normal 6.3-8.2 [facility] Comment on above: Performed By: #### P HOS3, ICA, CMP3M ####[address] Urea nitrogen [Mass/Vol] 25 mg/dL High 9-20 [facility] Comment on above: Performed By: #### P HOS3, ICA, CMP3M ####[address] Bilirubin [Mass/Vol] 0.5 mg/dL Normal 0.2-1.3 [facility] Comment on above: Performed By: #### P HOS3 ICA CMP3M ####[address] [place], [place] Creatinine [Mass/Vol] 4.04 mg/dL High 0.52-1.25 [facility] Comment on above: Performed By: #### P HOS3 ICA CMP3M ####[address] [place], [place] GFR/1.73 sq M.predicted among blacks MDRD (S/P/Bld) [Vol rate/Area] 12.0 mL/min/{1.73_m2} Abnormal >60 [facility] Comment on above: Performed By: #### P HOS3 ICA CMP3M ####[address] GFR/1.73 sq M.predicted among non-blacks MDRD (S/P/Bld) [Vol rate/Area] 10.4 mL/min/{1.73_m2} Abnormal >60 [facility] Comment on above: Result Comment: KDIG O guidelines provide the following GFR categories:Stage GFR(ml/min/1.73 m2) TermsG1 >=90 Normal or highG2 60-89 Mildly decreased*G3a 45-59 Mildly to moderately utcywlacmZ1n 30-44 Moderately to severely decreasedG4 15-29 Severely [...] creatinine secretion. Performed By: #### P HOS3 ICA CMP3M ####[facility] [employer] [id number] [place], [place] Albumin [Mass/Vol] 3.4 g/dL Low 3.5-5.0 [facility] Comment on above: Performed By: #### P HOS3, ICA, CMP3M ####[facility] [place] [address] Potassium [Moles/Vol] 4.3 mmol/L Normal 3.5-5.1 [facility] Comment on above: Performed By: #### P HOS3, ICA, CMP3M ####[id number] [place] [address] Sodium [Moles/Vol] 140 mmol/L Normal 135-145 [facility] Comment on above: Performed By: #### P HOS3, ICA, CMP3M ####[address] [place] [address] Chloride [Moles/Vol] 105 mmol/L Normal 98-107 [facility] Comment on above: Performed By: #### P HOS3, ICA, CMP3M ####[address] [place] [address] Echo Complete w/wo Contrasto n 03-17-2021 Echo Complete w/wo Contrast Normal [facility] Glucose,Bedsideon 03-17-2021 Glucose [Mass/Vol] 92 mg/dL Normal 70-100 [facility] Comment on above: Result Comment: Test performed by glucose meter. Results may be 10%-15% lowerthan serum/plasma values. (CLIA ID [id number]) Performed By: #### B GLU ####[address] [place] [address] Glucose [Mass/Vol] 109 mg/dL High 70-100 [facility] Comment on above: Result Comment: Test performed by glucose meter. Results may be 10%-15% lowerthan serum/plasma values. (CLIA ID [id number]) Performed By: #### B GLU ####[address] [place] [address] Glucose [Mass/Vol] 139 mg/dL High 70-100 [facility] Comment on above: Result Comment: Test performed by glucose meter. Results may be 10%-15% lowerthan serum/plasma values. (CLIA ID [id number]) Performed By: #### B GLU ####[id number] [place], [place] Glucose [Mass/Vol] 153 mg/dL High 70-100 [facility] Comment on above: Result Comment: Test performed by glucose meter. Results may be 10%-15% lowerthan serum/plasma values. (CLIA ID [id number]) Performed By: #### B GLU ####[address] [place], [place] Glucose [Mass/Vol] 144 mg/dL High 70-100 [facility] Comment on above: Result Comment: Test performed by glucose meter. Results may be 10%-15% lowerthan serum/plasma values. (CLIA ID [id number]) Performed By: #### B GLU ####[address] [place], [place] Hemogramon 03-17-2021 Erythrocyte distribution width (RBC) [Ratio] 16.7 % High 11.5-14.5 [facility] Comment on above: Performed By: #### A BG, LACT3, HEMOG ####[address] [place], [place] Hematocrit (Bld) [Volume fraction] 31.5 % Low 35.0-47.0 [facility] Comment on above: Performed By: #### A BG, LACT3, HEMOG ####[address] [place], [place] Hemoglobin (Bld) [Mass/Vol] 10.0 g/dL Low 11.7-16.0 [facility] Comment on above: Performed By: #### A BG, LACT3, HEMOG ####[address] [place], [place] MCH (RBC) [Entitic mass] 27.8 pg Normal 26.0-34.0 [facility] Comment on above: Performed By: #### A BG, LACT3, HEMOG ####[address] [place], [place] MCHC 31.8 % Low 32.0-36.0 [facility] Comment on above: Performed By: #### A BG, LACT3, HEMOG ####[address] [place], [place] MCV (RBC) [Entitic vol] 87.4 fL Normal 79.0-98.0 [facility] Comment on above: Performed By: #### A BG, LACT3, HEMOG ####[address] [place], [place] Platelet mean volume (Bld) [Entitic vol] 9.6 fL Normal 7.4-10.4 [facility] Comment on above: Performed By: #### A BG, LACT3, HEMOG ####[address] [place], [place] Platelets (Bld) [#/Vol] 268 10*3/uL Normal 140-440 [facility] Comment on above: Performed By: #### A BG, LACT3, HEMOG ####[address] [place], [place] RBC (Bld) [#/Vol] 3.61 10*6/uL Low 3.80-5.20 [facility] Comment on above: Performed By: #### A BG, LACT3, HEMOG ####[address] [place], [place] WBC (Bld) [#/Vol] 10.5 10*3/uL Normal 3.6-10.7 [facility] Comment on above: Performed By: #### A BG, LACT3, HEMOG ####[address] [place], [place] Hep B Surface Abon 1 Hep B Surface Ab < 8.0 Normal [facility] Comment on above: Result Comment: Inte rpretation:<8.0 Non-Reactive8.0-11.9 Equivocal>= 12.0 Ab DetectedNote: If an equivocal result is interpreted, an antibodystatus is unable to be determined. Collect new specimenif clinically indicated. Performed By: #### H BSAG, HBSA ####[facility] [place], [place] Hep B Surface Ab < 8.0 Normal [facility] Comment on above: Result Comment: Inte rpretation:<8.0 Non-Reactive8.0-11.9 Equivocal>= 12.0 Ab DetectedNote: If an equivocal result is interpreted, an antibodystatus is unable to be determined. Collect new specimenif clinically indicated. Performed By: #### H BSA, HBSAG ####[facility] [place], [place] Hep B Surface Agon Hep B Surface Ag Not detected Normal Not Detected [facility] Comment on above: Performed By: #### H BSAG, HBSA ####[facility] [employer] [id number] [place], [place] Hep B Surface Ag Not detected Normal Not Detected [facility] Comment on above: Performed By: #### H BSA, HBSAG ####[facility] [place], [place] Lactic Acidon 03-17-2021 Lactate [Moles/Vol] 1.4 mmol/L Normal 0.7-2.0 [facility] Comment on above: Performed By: #### A BG, LACT3, HEMOG ####[facility] [employer] [id number] [place], [place] Phosphoruson 03-17-2021 Phosphate [Mass/Vol] 7.1 mg/dL High 2.5-4.5 [facility] Comment on above: Performed By: #### P HOS3, ICA, CMP3M ####[facility] [employer] [id number] [place], [place] Arterial Blood Gaseson 03-16 CO2 [Moles/Vol] 26.0 mmol/L Normal 23.0-27.0 [facility] Comment on above: Performed By: #### A BG, ICA, PHOS3, CMP3M, CK3, HEMDF ####[address] [place], [place] HCO3 (Bld) [Moles/Vol] 24.4 mmol/L Normal 21.0-25.0 [facility] Comment on above: Performed By: #### A BG, ICA, PHOS3, CMP3M, CK3, HEMDF ####[address] [place], [place] Hemoglobin (Bld) [Mass/Vol] 10.2 g/dL Normal ScreenOnly [facility] Comment on above: Performed By: #### A BG, ICA, PHOS3, CMP3M, CK3, HEMDF ####[address] [place], [place] Oxygen (Bld) [Partial pressure] 208.3 mm[Hg] High 80.0-100.0 [facility] Comment on above: Performed By: #### A BG, ICA, PHOS3, CMP3M, CK3, HEMDF ####[address] [place], [place] Oxygen saturation in Blood 99.6 % Normal 95.0-100.0 [facility] Comment on above: Performed By: #### A BG, ICA, PHOS3, CMP3M, CK3, HEMDF ####[address] [place], [place] pCO2 49.9 mm[Hg] High 35.0-45.0 [facility] Comment on above: Performed By: #### A BG, ICA, PHOS3, CMP3M, CK3, HEMDF ####[address] [place], [place] pH 7.308 Low 7.350-7.450 [facility] Comment on above: Performed By: #### A BG, ICA, PHOS3, CMP3M, CK3, HEMDF ####[address] [place], [place] Std Base Excess -2.1 mmol/L Normal -3.0-3.0 [facility] Comment on above: Performed By: #### A BG, ICA, PHOS3, CMP3M, CK3, HEMDF ####[address] [place], [place] FIO2 No data Normal [facility] Comment on above: Performed By: #### A BG, ICA, PHOS3, CMP3M, CK3, HEMDF ####[address] [place], [place] CKon 03-16-2021 CK [Catalytic activity/Vol] 132 U/L Normal 30-170 [facility] Comment on above: Performed By: #### A BG, ICA, PHOS3, CMP3M, CK3, HEMDF ####[address] [place], [place] CR Chest Portableon 03-16-20 21 CR Chest Portable Normal [facility] Calcium,Ionizedon 03-16-2021 Ionized Ca,Measured 4.20 mg/dL Low 4.30-5.20 [facility] Comment on above: Performed By: #### A BG, ICA, PHOS3, CMP3M, CK3, HEMDF ####[address] [place], [place] pH, Ionized Calcium 7.28 Low 7.31-7.46 [facility] Comment on above: Performed By: #### A BG, ICA, PHOS3, CMP3M, CK3, HEMDF ####[address] [place], [place] Comp Panel with Mg Reflexon 03-16-2021 ALP [Catalytic activity/Vol] 79 U/L Normal 38-126 [facility] Comment on above: Performed By: #### A BG, ICA, PHOS3, CMP3M, CK3, HEMDF ####[address] [place], [place] ALT [Catalytic activity/Vol] 11 U/L Normal 0-34 [facility] Comment on above: Result Comment: The ALT test is performed by an updated assay method.Please note that the reference intervals have beenchanged and are now sex specific. Performed By: #### A BG, ICA, PHOS3, CMP3M, CK3, HEMDF ####[address] [place], [place] Anion gap [Moles/Vol] 10 mmol/L Normal 3-13 [facility] Comment on above: Performed By: #### A BG, ICA, PHOS3, CMP3M, CK3, HEMDF ####[facility] [place], [place] AST [Catalytic activity/Vol] 23 U/L Normal 15-46 [facility] Comment on above: Performed By: #### A BG, ICA, PHOS3, CMP3M, CK3, HEMDF ####[address] [place], [place] Calcium [Mass/Vol] 8.4 mg/dL Normal 8.4-10.4 [facility] Comment on above: Performed By: #### A BG, ICA, PHOS3, CMP3M, CK3, HEMDF ####[address] [place], [place] CO2 [Moles/Vol] 25 mmol/L Normal 22-30 [facility] Comment on above: Performed By: #### A BG, ICA, PHOS3, CMP3M, CK3, HEMDF ####[address] [place], [place] Glucose [Mass/Vol] 189 mg/dL High 70-100 [facility] Comment on above: Performed By: #### A BG, ICA, PHOS3, CMP3M, CK3, HEMDF ####[address] [place], [place] Protein [Mass/Vol] 6.7 g/dL Normal 6.3-8.2 [facility] Comment on above: Performed By: #### A BG, ICA, PHOS3, CMP3M, CK3, HEMDF ####[address] [place], [place] Urea nitrogen [Mass/Vol] 22 mg/dL High 9-20 [facility] Comment on above: Performed By: #### A BG, ICA, PHOS3, CMP3M, CK3, HEMDF ####[facility] [place] [address] Bilirubin [Mass/Vol] 0.6 mg/dL Normal 0.2-1.3 [facility] Comment on above: Performed By: #### A BG, ICA, PHOS3, CMP3M, CK3, HEMDF ####[facility] [place] [address] Creatinine [Mass/Vol] 3.33 mg/dL High 0.52-1.25 [facility] Comment on above: Performed By: #### A BG, ICA, PHOS3, CMP3M, CK3, HEMDF ####[address] [place] [address] GFR/1.73 sq M.predicted among blacks MDRD (S/P/Bld) [Vol rate/Area] 15.2 mL/min/{1.73_m2} Abnormal >60 [facility] Comment on above: Performed By: #### A BG, ICA, PHOS3, CMP3M, CK3, HEMDF ####[address] [place] [address] GFR/1.73 sq M.predicted among non-blacks MDRD (S/P/Bld) [Vol rate/Area] 13.1 mL/min/{1.73_m2} Abnormal >60 [facility] Comment on above: Result Comment: KDIG O guidelines provide the following GFR categories:Stage GFR(ml/min/1.73 m2) TermsG1 >=90 Normal or highG2 60-89 Mildly decreased*G3a 45-59 Mildly to moderately faqlwwwseH2r 30-44 Moderately to severely decreasedG4 15-29 Severely [...] A BG, ICA, PHOS3, CMP3M, CK3, HEMDF ####[address] [place] [address] Albumin [Mass/Vol] 3.4 g/dL Low 3.5-5.0 [facility] Comment on above: Performed By: #### A BG, ICA, PHOS3, CMP3M, CK3, HEMDF ####[address] [place] [address] Chloride [Moles/Vol] 104 mmol/L Normal 98-107 [facility] Comment on above: Performed By: #### A BG, ICA, PHOS3, CMP3M, CK3, HEMDF ####[address] [place] [address] Potassium [Moles/Vol] 3.9 mmol/L Normal 3.5-5.1 [facility] Comment on above: Performed By: #### A BG, ICA, PHOS3, CMP3M, CK3, HEMDF ####[address] [place] [address] Sodium [Moles/Vol] 140 mmol/L Normal 135-145 [facility] Comment on above: Performed By: #### A BG, ICA, PHOS3, CMP3M, CK3, HEMDF ####[address] [place] [address] Glucose,Bedsideon 03-16-2021 Glucose [Mass/Vol] 189 mg/dL High 70-100 [facility] Comment on above: Result Comment: Test performed by glucose meter. Results may be 10%-15% lowerthan serum/plasma values. (CLIA ID [id number]) Performed By: #### B GLU ####[address] [place] [address] Glucose [Mass/Vol] 217 mg/dL High 70-100 [facility] Comment on above: Result Comment: Test performed by glucose meter. Results may be 10%-15% lowerthan serum/plasma values. (CLIA ID [id number]) Performed By: #### B GLU ####[facility] [employer] [id number] [place] [address] Glucose [Mass/Vol] 227 mg/dL High 70-100 [facility] Comment on above: Result Comment: Test performed by glucose meter. Results may be 10%-15% lowerthan serum/plasma values. (CLIA ID [id number]) Performed By: #### B GLU ####[facility] [employer] [id number] [place] [address] Glucose [Mass/Vol] 206 mg/dL High 70-100 [facility] Comment on above: Result Comment: Test performed by glucose meter. Results may be 10%-15% lowerthan serum/plasma values. (CLIA ID [id number]) Performed By: #### B GLU ####[facility] [employer] [id number] [place], [place] Glucose [Mass/Vol] 159 mg/dL High 70-100 [facility] Comment on above: Result Comment: Test performed by glucose meter. Results may be 10%-15% lowerthan serum/plasma values. (CLIA ID [id number]) Performed By: #### B GLU ####[facility] [employer] [id number] [place], [place] Hemogram w/ Autodiffon 03-16 Abs Baso Cnt 0.0 10*3/uL Normal 0.0-0.2 [facility] Comment on above: Performed By: #### A BG, ICA, PHOS3, CMP3M, CK3, HEMDF ####[facility] [employer] [id number] [place], [place] Abs Neutrophile Cnt 6.5 10*3/uL Normal 1.8-7.0 [facility] Comment on above: Performed By: #### A BG, ICA, PHOS3, CMP3M, CK3, HEMDF ####[facility] [employer] [id number] [place] [address] Basophils/100 WBC (Bld) 0.2 % Normal 0.0-2.0 [facility] Comment on above: Performed By: #### A BG, ICA, PHOS3, CMP3M, CK3, HEMDF ####[address] [place], [place] Eosinophils (Bld) [#/Vol] 0.0 10*3/uL Normal 0.0-0.5 [facility] Comment on above: Performed By: #### A BG, ICA, PHOS3, CMP3M, CK3, HEMDF ####[address] Eosinophils/100 WBC (Bld) 0.1 % Low 1.0-6.0 [facility] Comment on above: Performed By: #### A BG, ICA, PHOS3, CMP3M, CK3, HEMDF ####[address] [place], [place] Erythrocyte distribution width (RBC) [Ratio] 16.8 % High 11.5-14.5 [facility] Comment on above: Performed By: #### A BG, ICA, PHOS3, CMP3M, CK3, HEMDF ####[address] Granulocytes/100 WBC (Bld) 90.6 % High 40.0-80.0 [facility] Comment on above: Performed By: #### A BG, ICA, PHOS3, CMP3M, CK3, HEMDF ####[address] [place], [place] Hematocrit (Bld) [Volume fraction] 30.6 % Low 35.0-47.0 [facility] Comment on above: Performed By: #### A BG, ICA, PHOS3, CMP3M, CK3, HEMDF ####[address] [place], [place] Hemoglobin (Bld) [Mass/Vol] 9.8 g/dL Low 11.7-16.0 [facility] Comment on above: Performed By: #### A BG, ICA, PHOS3, CMP3M, CK3, HEMDF ####[address] Lymphocytes (Bld) [#/Vol] 0.4 10*3/uL Low 1.0-4.3 [facility] Comment on above: Performed By: #### A BG, ICA, PHOS3, CMP3M, CK3, HEMDF ####[address] [place], [place] Lymphocytes/100 WBC (Bld) 5.4 % Low 20.0-40.0 [facility] Comment on above: Performed By: #### A BG, ICA, PHOS3, CMP3M, CK3, HEMDF ####[address] [place], [place] MCH (RBC) [Entitic mass] 28.2 pg Normal 26.0-34.0 [facility] Comment on above: Performed By: #### A BG, ICA, PHOS3, CMP3M, CK3, HEMDF ####[address] MCHC 32.0 % Normal 32.0-36.0 [facility] Comment on above: Performed By: #### A BG, ICA, PHOS3, CMP3M, CK3, HEMDF ####[address] [place], [place] MCV (RBC) [Entitic vol] 88.1 fL Normal 79.0-98.0 [facility] Comment on above: Performed By: #### A BG, ICA, PHOS3, CMP3M, CK3, HEMDF ####[address] [place], [place] Monocytes (Bld) [#/Vol] 0.3 10*3/uL Normal 0.0-0.8 [facility] Comment on above: Performed By: #### A BG, ICA, PHOS3, CMP3M, CK3, HEMDF ####[address] [place], [place] Monocytes/100 WBC (Bld) 3.7 % Normal 2.0-10.0 [facility] Comment on above: Performed By: #### A BG, ICA, PHOS3, CMP3M, CK3, HEMDF ####[address] [place], [place] Platelet mean volume (Bld) [Entitic vol] 9.7 fL Normal 7.4-10.4 [facility] Comment on above: Performed By: #### A BG, ICA, PHOS3, CMP3M, CK3, HEMDF ####[address] [place], [place] Platelets (Bld) [#/Vol] 183 10*3/uL Normal 140-440 [facility] Comment on above: Performed By: #### A BG, ICA, PHOS3, CMP3M, CK3, HEMDF ####[address] RBC (Bld) [#/Vol] 3.48 10*6/uL Low 3.80-5.20 [facility] Comment on above: Performed By: #### A BG, ICA, PHOS3, CMP3M, CK3, HEMDF ####[address] [place], [place] WBC (Bld) [#/Vol] 7.1 10*3/uL Normal 3.6-10.7 [facility] Comment on above: Performed By: #### A BG, ICA, PHOS3, CMP3M, CK3, HEMDF ####[address] [place], [place] Phosphoruson 03-16-2021 Phosphate [Mass/Vol] 6.4 mg/dL High 2.5-4.5 [facility] Comment on above: Performed By: #### A BG, ICA, PHOS3, CMP3M, CK3, HEMDF ####[address] [place], [place] Vancomycin Troughon 03-16-20 Vancomycin Trough 36.8 ug/mL High 15.0-20.0 [facility] Comment on above: Result Comment: . Performed By: #### V ANCT ####[address] [place], [place] Arterial Blood Gaseson 03-15 CO2 [Moles/Vol] 28.9 mmol/L High 23.0-27.0 [facility] Comment on above: Performed By: #### C MP3M, HEMDF, ICA, ABG, PHOS3 ####[address] HCO3 (Bld) [Moles/Vol] 27.1 mmol/L High 21.0-25.0 [facility] Comment on above: Performed By: #### C MP3M, HEMDF, ICA, ABG, PHOS3 ####[address] Hemoglobin (Bld) [Mass/Vol] 10.9 g/dL Normal ScreenOnly [facility] Comment on above: Performed By: #### C MP3M, HEMDF, ICA, ABG, PHOS3 ####[address] Oxygen (Bld) [Partial pressure] 135.6 mm[Hg] High 80.0-100.0 [facility] Comment on above: Performed By: #### C MP3M, HEMDF, ICA, ABG, PHOS3 ####[address] Oxygen saturation in Blood 98.4 % Normal 95.0-100.0 [facility] Comment on above: Performed By: #### C MP3M, HEMDF, ICA, ABG, PHOS3 ####[address] pCO2 58.8 mm[Hg] High 35.0-45.0 [facility] Comment on above: Performed By: #### C MP3M, HEMDF, ICA, ABG, PHOS3 ####[address] pH 7.282 Low 7.350-7.450 [facility] Comment on above: Performed By: #### C MP3M, HEMDF, ICA, ABG, PHOS3 ####[address] [place], [place] Std Base Excess -0.4 mmol/L Normal -3.0-3.0 [facility] Comment on above: Performed By: #### C MP3M, HEMDF, ICA, ABG, PHOS3 ####[address] [place], [place] FIO2 35% Normal [facility] Comment on above: Performed By: #### C MP3M, HEMDF, ICA, ABG, PHOS3 ####[address] [place] [address] CR Chest Portableon 03-15-20 21 CR Chest Portable Normal [facility] CULT/STAIN - AEROBIC AND LEWIS EROBICon 03-15-2021 CULT/STAIN - AEROBIC AND ANAEROBIC Normal [facility] Comment on above: Performed By: #### C KIARRA ####[address] [place] [address]N[address] [place], [place] [id number] Calcium,Ionizedon 03-15-2021 Ionized Ca,Measured 4.30 mg/dL Normal 4.30-5.20 [facility] Comment on above: Performed By: #### C MP3M, HEMDF, ICA, ABG, PHOS3 ####[address] [place], [place] pH, Ionized Calcium 7.25 Low 7.31-7.46 [facility] Comment on above: Performed By: #### C MP3M, HEMDF, ICA, ABG, PHOS3 ####[address] [place], [place] Comp Panel with Mg Reflexon 03-15-2021 ALP [Catalytic activity/Vol] 70 U/L Normal 38-126 [facility] Comment on above: Performed By: #### C MP3M, HEMDF, ICA, ABG, PHOS3 ####[address] [place], [place] ALT [Catalytic activity/Vol] 10 U/L Normal 0-34 [facility] Comment on above: Result Comment: The ALT test is performed by an updated assay method.Please note that the reference intervals have beenchanged and are now sex specific. Performed By: #### C MP3M, HEMDF, ICA, ABG, PHOS3 ####[address] [facility] [place] AST [Catalytic activity/Vol] 20 U/L Normal 15-46 [facility] Comment on above: Performed By: #### C MP3M, HEMDF, ICA, ABG, PHOS3 ####[address] [facility] [place] Bilirubin [Mass/Vol] 0.5 mg/dL Normal 0.2-1.3 [facility] Comment on above: Performed By: #### C MP3M, HEMDF, ICA, ABG, PHOS3 ####[address] [facility] [place] Calcium [Mass/Vol] 8.1 mg/dL Low 8.4-10.4 [facility] Comment on above: Performed By: #### C MP3M, HEMDF, ICA, ABG, PHOS3 ####[address] [place], [place] Glucose [Mass/Vol] 146 mg/dL High 70-100 [facility] Comment on above: Performed By: #### C MP3M, HEMDF, ICA, ABG, PHOS3 ####[address] [facility] [place] Protein [Mass/Vol] 6.1 g/dL Low 6.3-8.2 [facility] Comment on above: Performed By: #### C MP3M, HEMDF, ICA, ABG, PHOS3 ####[address] [facility] [place] Urea nitrogen [Mass/Vol] 19 mg/dL Normal 9-20 [facility] Comment on above: Performed By: #### C MP3M, HEMDF, ICA, ABG, PHOS3 ####[address] [place], [place] Anion gap [Moles/Vol] 8 mmol/L Normal 3-13 [facility] Comment on above: Performed By: #### C MP3M, HEMDF, ICA, ABG, PHOS3 ####[facility] [employer] [id number] [place], [place] CO2 [Moles/Vol] 28 mmol/L Normal 22-30 [facility] Comment on above: Performed By: #### C MP3M, HEMDF, ICA, ABG, PHOS3 ####[facility] [employer] [id number] [place], [place] Creatinine [Mass/Vol] 3.02 mg/dL High 0.52-1.25 [facility] Comment on above: Performed By: #### C MP3M, HEMDF, ICA, ABG, PHOS3 ####[facility] [employer] [id number] [place], [place] GFR/1.73 sq M.predicted among blacks MDRD (S/P/Bld) [Vol rate/Area] 17.1 mL/min/{1.73_m2} Abnormal >60 [facility] Comment on above: Performed By: #### C MP3M, HEMDF, ICA, ABG, PHOS3 ####[facility] [employer] [id number] [place], [place] GFR/1.73 sq M.predicted among non-blacks MDRD (S/P/Bld) [Vol rate/Area] 14.7 mL/min/{1.73_m2} Abnormal >60 [facility] Comment on above: Result Comment: KDIG O guidelines provide the following GFR categories:Stage GFR(ml/min/1.73 m2) TermsG1 >=90 Normal or highG2 60-89 Mildly decreased*G3a 45-59 Mildly to moderately xddsyeyluD3e 30-44 Moderately to severely decreasedG4 15-29 Severely [...] #### C MP3M, HEMDF, ICA, ABG, PHOS3 ####[facility] [place] [address] Albumin [Mass/Vol] 3.2 g/dL Low 3.5-5.0 [facility] Comment on above: Performed By: #### C MP3M, HEMDF, ICA, ABG, PHOS3 ####[address] [place] [address] Potassium [Moles/Vol] 3.9 mmol/L Normal 3.5-5.1 [facility] Comment on above: Performed By: #### C MP3M, HEMDF, ICA, ABG, PHOS3 ####[address] [place] [address] Sodium [Moles/Vol] 141 mmol/L Normal 135-145 [facility] Comment on above: Performed By: #### C MP3M, HEMDF, ICA, ABG, PHOS3 ####[address] [place] [address] Chloride [Moles/Vol] 105 mmol/L Normal 98-107 [facility] Comment on above: Performed By: #### C MP3M, HEMDF, ICA, ABG, PHOS3 ####[address] [place] [address] Glucose,Bedsideon 03-15-2021 Glucose [Mass/Vol] 156 mg/dL High 70-100 [facility] Comment on above: Result Comment: Test performed by glucose meter. Results may be 10%-15% lowerthan serum/plasma values. (CLIA ID [id number]) Performed By: #### B GLU ####[id number] [place] [address] Glucose [Mass/Vol] 164 mg/dL High 70-100 [facility] Comment on above: Result Comment: Test performed by glucose meter. Results may be 10%-15% lowerthan serum/plasma values. (CLIA ID [id number]) Performed By: #### B GLU ####[id number] [place], [place] Glucose [Mass/Vol] 166 mg/dL High 70-100 [facility] Comment on above: Result Comment: Test performed by glucose meter. Results may be 10%-15% lowerthan serum/plasma values. (CLIA ID [id number]) Performed By: #### B GLU ####[id number] [place], [place] Glucose [Mass/Vol] 169 mg/dL High 70-100 [facility] Comment on above: Result Comment: Test performed by glucose meter. Results may be 10%-15% lowerthan serum/plasma values. (CLIA ID [id number]) Performed By: #### B GLU ####[address] [place], [place] Hemogram w/ Autodiffon 03-15 Abs Baso Cnt 0.0 10*3/uL Normal 0.0-0.2 [facility] Comment on above: Performed By: #### C MP3M, HEMDF, ICA, ABG, PHOS3 ####[id number] [place], [place] Abs Neutrophile Cnt 4.9 10*3/uL Normal 1.8-7.0 [facility] Comment on above: Performed By: #### C MP3M, HEMDF, ICA, ABG, PHOS3 ####[address] Basophils/100 WBC (Bld) 0.6 % Normal 0.0-2.0 [facility] Comment on above: Performed By: #### C MP3M, HEMDF, ICA, ABG, PHOS3 ####[address] Eosinophils (Bld) [#/Vol] 0.2 10*3/uL Normal 0.0-0.5 [facility] Comment on above: Performed By: #### C MP3M, HEMDF, ICA, ABG, PHOS3 ####[id number] [place], [place] Eosinophils/100 WBC (Bld) 3.1 % Normal 1.0-6.0 [facility] Comment on above: Performed By: #### C MP3M, HEMDF, ICA, ABG, PHOS3 ####[id number] [place], [place] Erythrocyte distribution width (RBC) [Ratio] 16.6 % High 11.5-14.5 [facility] Comment on above: Performed By: #### C MP3M, HEMDF, ICA, ABG, PHOS3 ####[address] Granulocytes/100 WBC (Bld) 70.9 % Normal 40.0-80.0 [facility] Comment on above: Performed By: #### C MP3M, HEMDF, ICA, ABG, PHOS3 ####[address] Hematocrit (Bld) [Volume fraction] 29.0 % Low 35.0-47.0 [facility] Comment on above: Performed By: #### C MP3M, HEMDF, ICA, ABG, PHOS3 ####[id number] [place], [place] Hemoglobin (Bld) [Mass/Vol] 9.3 g/dL Low 11.7-16.0 [facility] Comment on above: Performed By: #### C MP3M, HEMDF, ICA, ABG, PHOS3 ####[id number] [place], [place] Lymphocytes (Bld) [#/Vol] 1.1 10*3/uL Normal 1.0-4.3 [facility] Comment on above: Performed By: #### C MP3M, HEMDF, ICA, ABG, PHOS3 ####[address], [place] Lymphocytes/100 WBC (Bld) 16.4 % Low 20.0-40.0 [facility] Comment on above: Performed By: #### C MP3M, HEMDF, ICA, ABG, PHOS3 ####[id number] [place], [place] MCH (RBC) [Entitic mass] 28.4 pg Normal 26.0-34.0 [facility] Comment on above: Performed By: #### C MP3M, HEMDF, ICA, ABG, PHOS3 ####[address] MCHC 32.1 % Normal 32.0-36.0 [facility] Comment on above: Performed By: #### C MP3M, HEMDF, ICA, ABG, PHOS3 ####[address] MCV (RBC) [Entitic vol] 88.6 fL Normal 79.0-98.0 [facility] Comment on above: Performed By: #### C MP3M, HEMDF, ICA, ABG, PHOS3 ####[address] Monocytes (Bld) [#/Vol] 0.6 10*3/uL Normal 0.0-0.8 [facility] Comment on above: Performed By: #### C MP3M, HEMDF, ICA, ABG, PHOS3 ####[address] Monocytes/100 WBC (Bld) 9.0 % Normal 2.0-10.0 [facility] Comment on above: Performed By: #### C MP3M, HEMDF, ICA, ABG, PHOS3 ####[address] Platelet mean volume (Bld) [Entitic vol] 9.7 fL Normal 7.4-10.4 [facility] Comment on above: Performed By: #### C MP3M, HEMDF, ICA, ABG, PHOS3 ####[facility] [place], [place] Platelets (Bld) [#/Vol] 179 10*3/uL Normal 140-440 [facility] Comment on above: Performed By: #### C MP3M, HEMDF, ICA, ABG, PHOS3 ####[id number] [place], [place] RBC (Bld) [#/Vol] 3.27 10*6/uL Low 3.80-5.20 [facility] Comment on above: Performed By: #### C MP3M, HEMDF, ICA, ABG, PHOS3 ####[address] [place], [place] WBC (Bld) [#/Vol] 6.9 10*3/uL Normal 3.6-10.7 [facility] Comment on above: Performed By: #### C MP3M, HEMDF, ICA, ABG, PHOS3 ####[id number] [place], [place] Op Noteon 03-15-2021 Op Note Pre-operative [...] to normal structures that can lead to exterminator problems of pain or dysfunction, wound healing [...] patient's ASA was verified by the nurse wine steward and the anesthesia staff. Fire risk was [...] then used to cover the sponge/wound. A [place] of plastic drape the size of a [...] ICU in her preoperative medical condition. Normal [facility] Phosphoruson 03-15-2021 Phosphate [Mass/Vol] 5.9 mg/dL High 2.5-4.5 [facility] Comment on above: Performed By: #### C MP3M, HEMDF, ICA, ABG, PHOS3 ####[id number] [place], [place] TS GELon 03-15-2021 TS GEL ABO Group: A Rh, Gel: POS Antibody Screen Gel: NEG Normal [facility] Comment on above: Performed By: #### T SGL ####[facility] Vancomycin Troughon 03-15-20 Vancomycin Trough 35.6 ug/mL High 15.0-20.0 [facility] Comment on above: Result Comment: . Performed By: #### V ANCT ####[address] Add on test from HISon 03-14 Add on test from HIS Accepted Normal [facility] Comment on above: Result Comment: Spec imen available & acceptable for analysis. Performed By: #### N AURR, UNURR, CRTUR, ADDON ####[id number] [place], [place] Arterial Blood Gaseson 03-14 CO2 [Moles/Vol] 28.0 mmol/L High 23.0-27.0 [facility] Comment on above: Performed By: #### A BG ####[address] HCO3 (Bld) [Moles/Vol] 26.4 mmol/L High 21.0-25.0 S [facility] Comment on above: Performed By: #### A BG ####[address] [place], [place] Hemoglobin (Bld) [Mass/Vol] 11.5 g/dL Normal ScreenOnly [facility] Comment on above: Performed By: #### A BG ####[id number] [place], [place] Oxygen (Bld) [Partial pressure] 143.3 mm[Hg] High 80.0-100.0 [facility] Comment on above: Performed By: #### A BG ####[address] [place], [place] pCO2 51.2 mm[Hg] High 35.0-45.0 [facility] Comment on above: Performed By: #### A BG ####[address] pH 7.330 Low 7.350-7.450 [facility] Comment on above: Performed By: #### A BG ####[address] Std Base Excess -0.1 mmol/L Normal -3.0-3.0 [facility] Comment on above: Performed By: #### A BG ####[address] CO2 [Moles/Vol] 28.5 mmol/L High 23.0-27.0 [facility] Comment on above: Performed By: #### A BG, CMP3M, PHOS3, HEMDF, PT, ICA ####[address] HCO3 (Bld) [Moles/Vol] 26.9 mmol/L High 21.0-25.0 S [facility] Comment on above: Performed By: #### A BG, CMP3M, PHOS3, HEMDF, PT, ICA ####[id number] [place], [place] Hemoglobin (Bld) [Mass/Vol] 11.1 g/dL Normal ScreenOnly [facility] Comment on above: Performed By: #### A BG, CMP3M, PHOS3, HEMDF, PT, ICA ####[id number] [place], [place] Oxygen (Bld) [Partial pressure] 143.6 mm[Hg] High 80.0-100.0 [facility] Comment on above: Performed By: #### A BG, CMP3M, PHOS3, HEMDF, PT, ICA ####[id number] [place], [place] Oxygen saturation in Blood 98.6 % Normal 95.0-100.0 [facility] Comment on above: Performed By: #### A BG ####[address] Performed By: #### A BG, CMP3M, PHOS3, HEMDF, PT, ICA ####[address] pCO2 52.1 mm[Hg] High 35.0-45.0 [facility] Comment on above: Performed By: #### A BG, CMP3M, PHOS3, HEMDF, PT, ICA ####[address] pH 7.331 Low 7.350-7.450 [facility] Comment on above: Performed By: #### A BG, CMP3M, PHOS3, HEMDF, PT, ICA ####[address] Std Base Excess 0.4 mmol/L Normal -3.0-3.0 [facility] Comment on above: Performed By: #### A BG, CMP3M, PHOS3, HEMDF, PT, ICA ####[address] FIO2 35% Normal [facility] Comment on above: Performed By: #### A BG, CMP3M, PHOS3, HEMDF, PT, ICA ####[id number] [place], [place] FIO2 35% Normal [facility] Comment on above: Performed By: #### A BG ####[address] [address] [place], [place] CR Abdomen APon 03-14-2021 CR Abdomen AP Normal [facility] CR Chest Portableon 03-14-20 21 CR Chest Portable Normal [facility] CULTURE BLOODon 03-14-2021 Microscopic examination of blood, culture CULTURE BLOOD --> Status: F No growth at 5 days. Normal [facility] Comment on above: Performed By: #### C /BLD ####[address] [address] [place], [place] CULTURE BLOOD (Two)on 2020 Microscopic examination of blood, culture CULTURE BLOOD (Two) --> Status: F No growth at 5 days. Normal [facility] Comment on above: Performed By: #### C /BLT ####[address] [address] [place], [place] Calcium,Ionizedon 03-14-2021 Ionized Ca,Measured 4.10 mg/dL Low 4.30-5.20 [facility] Comment on above: Performed By: #### A BG, CMP3M, PHOS3, HEMDF, PT, ICA ####[id number] [place], [place] pH, Ionized Calcium 7.34 Normal 7.31-7.46 [facility] Comment on above: Performed By: #### A BG, CMP3M, PHOS3, HEMDF, PT, ICA ####[id number] [place], [place] Comp Panel with Mg Reflexon 03-14-2021 ALT [Catalytic activity/Vol] 10 U/L Normal 0-34 [facility] Comment on above: Result Comment: The ALT test is performed by an updated assay method.Please note that the reference intervals have beenchanged and are now sex specific. Performed By: #### A BG, CMP3M, PHOS3, HEMDF, PT, ICA ####[id number] [place], [place] Calcium [Mass/Vol] 8.2 mg/dL Low 8.4-10.4 [facility] Comment on above: Performed By: #### A BG, CMP3M, PHOS3, HEMDF, PT, ICA ####[id number] [place], [place] Glucose [Mass/Vol] 213 mg/dL High 70-100 [facility] Comment on above: Performed By: #### A BG, CMP3M, PHOS3, HEMDF, PT, ICA ####[id number] [place], [place] Urea nitrogen [Mass/Vol] 17 mg/dL Normal 9-20 [facility] Comment on above: Performed By: #### A BG, CMP3M, PHOS3, HEMDF, PT, ICA ####[id number] [place], [place] ALP [Catalytic activity/Vol] 71 U/L Normal 38-126 [facility] Comment on above: Performed By: #### A BG, CMP3M, PHOS3, HEMDF, PT, ICA ####[id number] [place], [place] Anion gap [Moles/Vol] 6 mmol/L Normal 3-13 [facility] Comment on above: Performed By: #### A BG, CMP3M, PHOS3, HEMDF, PT, ICA ####[id number] [place], [place] AST [Catalytic activity/Vol] 21 U/L Normal 15-46 [facility] Comment on above: Performed By: #### A BG, CMP3M, PHOS3, HEMDF, PT, ICA ####[id number] [place], [place] Bilirubin [Mass/Vol] 0.4 mg/dL Normal 0.2-1.3 [facility] Comment on above: Performed By: #### A BG, CMP3M, PHOS3, HEMDF, PT, ICA ####[facility] [place] [address] CO2 [Moles/Vol] 28 mmol/L Normal 22-30 [facility] Comment on above: Performed By: #### A BG, CMP3M, PHOS3, HEMDF, PT, ICA ####[facility] [place] [address] Creatinine [Mass/Vol] 2.37 mg/dL High 0.52-1.25 [facility] Comment on above: Performed By: #### A BG, CMP3M, PHOS3, HEMDF, PT, ICA ####[facility] [place] [address] GFR/1.73 sq M.predicted among blacks MDRD (S/P/Bld) [Vol rate/Area] 22.9 mL/min/{1.73_m2} Abnormal >60 [facility] Comment on above: Performed By: #### A BG, CMP3M, PHOS3, HEMDF, PT, ICA ####[facility] [place] [address] GFR/1.73 sq M.predicted among non-blacks MDRD (S/P/Bld) [Vol rate/Area] 19.7 mL/min/{1.73_m2} Abnormal >60 [facility] Comment on above: Result Comment: KDIG O guidelines provide the following GFR categories:Stage GFR(ml/min/1.73 m2) TermsG1 >=90 Normal or highG2 60-89 Mildly decreased*G3a 45-59 Mildly to moderately [id number] 30-44 Moderately to severely decreasedG4 15-29 Severely [...] A BG, CMP3M, PHOS3, HEMDF, PT, ICA ####[id number] [place], [place] Protein [Mass/Vol] 5.9 g/dL Low 6.3-8.2 [facility] Comment on above: Performed By: #### A BG, CMP3M, PHOS3, HEMDF, PT, ICA ####[id number] [place], [place] Potassium [Moles/Vol] 3.7 mmol/L Normal 3.5-5.1 [facility] Comment on above: Performed By: #### A BG, CMP3M, PHOS3, HEMDF, PT, ICA ####[id number] [place], [place] Sodium [Moles/Vol] 140 mmol/L Normal 135-145 [facility] Comment on above: Performed By: #### A BG, CMP3M, PHOS3, HEMDF, PT, ICA ####[id number] [place], [place] Albumin [Mass/Vol] 3.0 g/dL Low 3.5-5.0 [facility] Comment on above: Performed By: #### A BG, CMP3M, PHOS3, HEMDF, PT, ICA ####[id number] [place], [place] Chloride [Moles/Vol] 106 mmol/L Normal 98-107 [facility] Comment on above: Performed By: #### A BG, CMP3M, PHOS3, HEMDF, PT, ICA ####[id number] [place], [place] Complete Urinalysison 2020 Appearance (U) Turbid Abnormal Clear [facility] Comment on above: Result Comment: . Performed By: #### C UA2 ####[id number] [place], [place] Bacteria Moderate Abnormal Negative [facility] Comment on above: Result Comment: . Performed By: #### C UA2 ####[id number] [place], [place] Bilirubin,Urine Negative Normal Negative [facility] Comment on above: Result Comment: . Performed By: #### C UA2 ####[id number] [place], [place] Color (U) Yellow Normal Lt. Yellow [facility] Comment on above: Result Comment: . Performed By: #### C UA2 ####[address] [address] [place], [place] Glucose Ql (U) Normal Normal Normal (<70) [facility] Comment on above: Result Comment: . Performed By: #### C UA2 ####[address] [place], [place] Ketone,Urine Negative Normal Negative [facility] Comment on above: Result Comment: . Performed By: #### C UA2 ####[address] [place], [place] Leukocytes,Urine 500 Jimenez/uL Abnormal Negative [facility] Comment on above: Result Comment: . Performed By: #### C UA2 ####[address] [place], [place] Nitrites,Urine Negative Normal Negative [facility] Comment on above: Result Comment: . Performed By: #### C UA2 ####[id number] . [place], [place] Occult Blood,Urine > 1.0 Abnormal Negative [facility] Comment on above: Result Comment: . Performed By: #### C UA2 ####[address] [place], [place] pH,Urine 6.0 Normal 5.0-8.0 [facility] Comment on above: Result Comment: . Performed By: #### C UA2 ####[id number] [place], [place] Protein (U) [Mass/Vol] 200 mg/dL Abnormal Negative [facility] Comment on above: Result Comment: . Performed By: #### C UA2 ####[address] [address] [place], [place] RBC, Urine 11 - 25 Abnormal 0-2 [facility] Comment on above: Result Comment: . Performed By: #### C UA2 ####[address] [place], [place] Specific Linn,Urine 1.010 Normal 1.005 - 1.030 [facility] Comment on above: Result Comment: . Performed By: #### C UA2 ####[address] Squamous Epithelial Negative Normal 3-5 [facility] Comment on above: Result Comment: . Performed By: #### C UA2 ####[address] Urobilinogen,Urine Normal Normal Normal (0-1) [facility] Comment on above: Result Comment: . Performed By: #### C UA2 ####[address] WBC LM.HPF (Urine sed) [#/Area] /[HPF] Abnormal 0-5 [facility] Comment on above: Result Comment: . Performed By: #### C UA2 ####[address] White Blood Cell Clump Moderate Abnormal Negative [facility] Comment on above: Result Comment: . Performed By: #### C UA2 ####[address] Yeast Few Abnormal Negative [facility] Comment on above: Result Comment: . Performed By: #### C UA2 ####[address] Creatinine, Ur Randomon 03-02 Creatinine, Ur Random < 3.2 Normal No Range [facility] Comment on above: Performed By: #### N AURR, UNURR, CRTUR, ADDON ####[address] Glucose,Bedsideon 03-14-2021 Glucose [Mass/Vol] 104 mg/dL High 70-100 [facility] Comment on above: Result Comment: Test performed by glucose meter. Results may be 10%-15% lowerthan serum/plasma values. (CLIA ID [id number]) Performed By: #### B GLU ####[facility] [employer] [address] [address] [place], [place] Glucose [Mass/Vol] 143 mg/dL High 70-100 [facility] Comment on above: Result Comment: Test performed by glucose meter. Results may be 10%-15% lowerthan serum/plasma values. (CLIA ID [id number]) Performed By: #### B GLU ####[facility] [employer] [address] [address] [place], [place] Glucose [Mass/Vol] 163 mg/dL High 70-100 [facility] Comment on above: Result Comment: Test performed by glucose meter. Results may be 10%-15% lowerthan serum/plasma values. (CLIA ID [id number]) Performed By: #### B GLU ####[facility] [employer] [address] [address] [place], [place] Glucose [Mass/Vol] 173 mg/dL High 70-100 [facility] Comment on above: Result Comment: Test performed by glucose meter. Results may be 10%-15% lowerthan serum/plasma values. (CLIA ID [id number]) Performed By: #### B GLU ####[facility] [employer] [address] Hemogram w/ Autodiffon 03-14 Abs Baso Cnt 0.0 10*3/uL Normal 0.0-0.2 [facility] Comment on above: Performed By: #### A BG, CMP3M, PHOS3, HEMDF, PT, ICA ####[facility] [employer] [address] Abs Neutrophile Cnt 4.8 10*3/uL Normal 1.8-7.0 [facility] Comment on above: Performed By: #### A BG, CMP3M, PHOS3, HEMDF, PT, ICA ####[id number] [place], [place] Basophils/100 WBC (Bld) 0.7 % Normal 0.0-2.0 [facility] Comment on above: Performed By: #### A BG, CMP3M, PHOS3, HEMDF, PT, ICA ####[id number] [place], [place] Eosinophils (Bld) [#/Vol] 0.1 10*3/uL Normal 0.0-0.5 [facility] Comment on above: Performed By: #### A BG, CMP3M, PHOS3, HEMDF, PT, ICA ####[address] Eosinophils/100 WBC (Bld) 1.7 % Normal 1.0-6.0 [facility] Comment on above: Performed By: #### A BG, CMP3M, PHOS3, HEMDF, PT, ICA ####[address] Erythrocyte distribution width (RBC) [Ratio] 16.9 % High 11.5-14.5 [facility] Comment on above: Performed By: #### A BG, CMP3M, PHOS3, HEMDF, PT, ICA ####[address] Granulocytes/100 WBC (Bld) 77.6 % Normal 40.0-80.0 [facility] Comment on above: Performed By: #### A BG, CMP3M, PHOS3, HEMDF, PT, ICA ####[address] Hematocrit (Bld) [Volume fraction] 31.1 % Low 35.0-47.0 [facility] Comment on above: Performed By: #### A BG, CMP3M, PHOS3, HEMDF, PT, ICA ####[address] Hemoglobin (Bld) [Mass/Vol] 9.7 g/dL Low 11.7-16.0 [facility] Comment on above: Performed By: #### A BG, CMP3M, PHOS3, HEMDF, PT, ICA ####[id number] [place], [place] Lymphocytes (Bld) [#/Vol] 0.8 10*3/uL Low 1.0-4.3 [facility] Comment on above: Performed By: #### A BG, CMP3M, PHOS3, HEMDF, PT, ICA ####[address] Lymphocytes/100 WBC (Bld) 12.8 % Low 20.0-40.0 [facility] Comment on above: Performed By: #### A BG, CMP3M, PHOS3, HEMDF, PT, ICA ####[address] [place], [place] MCH (RBC) [Entitic mass] 28.1 pg Normal 26.0-34.0 [facility] Comment on above: Performed By: #### A BG, CMP3M, PHOS3, HEMDF, PT, ICA ####[address] [place], [place] MCHC 31.3 % Low 32.0-36.0 [facility] Comment on above: Performed By: #### A BG, CMP3M, PHOS3, HEMDF, PT, ICA ####[address] [place], [place] MCV (RBC) [Entitic vol] 89.8 fL Normal 79.0-98.0 [facility] Comment on above: Performed By: #### A BG, CMP3M, PHOS3, HEMDF, PT, ICA ####[address] [place], [place] Monocytes (Bld) [#/Vol] 0.4 10*3/uL Normal 0.0-0.8 [facility] Comment on above: Performed By: #### A BG, CMP3M, PHOS3, HEMDF, PT, ICA ####[address] Monocytes/100 WBC (Bld) 7.2 % Normal 2.0-10.0 [facility] Comment on above: Performed By: #### A BG, CMP3M, PHOS3, HEMDF, PT, ICA ####[id number] [place], [place] Platelet mean volume (Bld) [Entitic vol] 9.7 fL Normal 7.4-10.4 [facility] Comment on above: Performed By: #### A BG, CMP3M, PHOS3, HEMDF, PT, ICA ####[id number] [place], [place] Platelets (Bld) [#/Vol] 214 10*3/uL Normal 140-440 [facility] Comment on above: Performed By: #### A BG, CMP3M, PHOS3, HEMDF, PT, ICA ####[address] [address] [place], [place] RBC (Bld) [#/Vol] 3.47 10*6/uL Low 3.80-5.20 [facility] Comment on above: Performed By: #### A BG, CMP3M, PHOS3, HEMDF, PT, ICA ####[address] [place], [place] WBC (Bld) [#/Vol] 6.2 10*3/uL Normal 3.6-10.7 [facility] Comment on above: Performed By: #### A BG, CMP3M, PHOS3, HEMDF, PT, ICA ####[address] [place], [place] Magnesiumon 03-14-2021 Magnesium [Mass/Vol] 1.9 mg/dL Normal 1.6-2.3 [facility] Comment on above: Performed By: #### M G3, CMP3 ####[address] [place], [place] Phosphoruson 03-14-2021 Phosphate [Mass/Vol] 5.6 mg/dL High 2.5-4.5 [facility] Comment on above: Performed By: #### A BG, CMP3M, PHOS3, HEMDF, PT, ICA ####[address] [place] [address] Prothrombin Timeon INR 1.1 Normal 0.9-1.1 [facility] Comment on above: Result Comment: Juan [...] A BG, CMP3M, PHOS3, HEMDF, PT, ICA ####[address] PT Coag (PPP) [Time] 11.4 s Normal 9.0-12.0 [facility] Comment on above: Result Comment: . Performed By: #### A BG, CMP3M, PHOS3, HEMDF, PT, ICA ####[id number] [place], [place] Sodium, Ur Randomon 03-14-20 21 Sodium [Moles/Vol] 157 mmol/L High 30-90 [facility] Comment on above: Performed By: #### N AURDUSTY Rangel CRTUR, ADDON ####[id number] [place], [place] US Retroperitoneal Completeo n 03-14-2021 US Retroperitoneal Complete Normal [facility] Urea Nitrogen,Ur Randomon Urea Nitrogen,Ur Random < 67 Normal No Range [facility] Comment on above: Performed By: #### N AURR UNYURIDIA, CRTUR, ADDON ####[id number] [place], [place] Add on test from HISon 03-13 Add on test from HIS Rejected Normal [facility] Comment on above: Result Comment: No s pecimen available for addon.LFT added, ammonia needs green sent on ice Performed By: #### A DDON ####[address] Ammoniaon 03-13-2021 Ammonia (P) [Mass/Vol] ug/dL Normal 9-30 [facility] Comment on above: Performed By: #### V BG, NH33 ####[address] Arterial Blood Gaseson 03-13 CO2 [Moles/Vol] 28.6 mmol/L High 23.0-27.0 [facility] Comment on above: Performed By: #### A BG ####[id number] [place], [place] HCO3 (Bld) [Moles/Vol] 26.9 mmol/L High 21.0-25.0 S [facility] Comment on above: Performed By: #### A BG ####[address] Hemoglobin (Bld) [Mass/Vol] 12.3 g/dL Normal ScreenOnly [facility] Comment on above: Performed By: #### A BG ####[id number] [place], [place] Oxygen (Bld) [Partial pressure] 122.2 mm[Hg] High 80.0-100.0 [facility] Comment on above: Performed By: #### A BG ####[address] Oxygen saturation in Blood 98.1 % Normal 95.0-100.0 [facility] Comment on above: Performed By: #### A BG ####[address] pCO2 56.1 mm[Hg] High 35.0-45.0 [facility] Comment on above: Performed By: #### A BG ####[address] [place], [place] pH 7.299 Low 7.350-7.450 [facility] Comment on above: Performed By: #### A BG ####[address] [place], [place] Std Base Excess -0.4 mmol/L Normal -3.0-3.0 [facility] Comment on above: Performed By: #### A BG ####[address] [facility] [place] FIO2 35%% Normal [facility] Comment on above: Performed By: #### A BG ####[address] [place], [place] CO2 [Moles/Vol] 30.3 mmol/L High 23.0-27.0 [facility] Comment on above: Performed By: #### A BG ####[id number] [facility], [place] HCO3 (Bld) [Moles/Vol] 28.6 mmol/L High 21.0-25.0 S [facility] Comment on above: Performed By: #### A BG ####[address] [place], [place] Hemoglobin (Bld) [Mass/Vol] 11.2 g/dL Normal ScreenOnly [facility] Comment on above: Performed By: #### A BG ####[id number] [place], [place] Oxygen (Bld) [Partial pressure] 84.1 mm[Hg] Normal 80.0-100.0 [facility] Comment on above: Performed By: #### A BG ####[address] [place], [place] Oxygen saturation in Blood 96.0 % Normal 95.0-100.0 [facility] Comment on above: Performed By: #### A BG ####[id number] [facility] [place] pCO2 54.6 mm[Hg] High 35.0-45.0 [facility] Comment on above: Performed By: #### A BG ####[id number] [place], [place] pH 7.337 Low 7.350-7.450 [facility] Comment on above: Performed By: #### A BG ####[address] [place], [place] Std Base Excess 1.9 mmol/L Normal -3.0-3.0 [facility] Comment on above: Performed By: #### A BG ####[address] [place], [place] FIO2 No data Normal [facility] Comment on above: Performed By: #### A BG ####[address] Blood Gas,Ven[place]on CO2 [Moles/Vol] 32.2 mmol/L High 24.0-28.0 [facility] Comment on above: Performed By: #### V BG, NH33 ####[address] HCO3 (Bld) [Moles/Vol] 30.3 mmol/L High 23.0-27.0 [facility] Comment on above: Performed By: #### V BG, NH33 ####[address] Hemoglobin (Bld) [Mass/Vol] 11.5 g/dL Normal [facility]Only [facility] Comment on above: Performed By: #### V BG, NH33 ####[address] [place], [place] Oxygen (Bld) [Partial pressure] 40.9 mm[Hg] Normal 30.0-50.0 [facility] Comment on above: Performed By: #### V BG, NH33 ####[address] [place], [place] Oxygen saturation in Blood 71.4 % Normal 60.0-80.0 [facility] Comment on above: Performed By: #### V BG, NH33 ####[address] [place], [place] pCO2 63.5 mm[Hg] High 40.0-55.0 [facility] Comment on above: Performed By: #### V BG, NH33 ####[address] [place], [place] pH 7.296 Low 7.330-7.430 [facility] Comment on above: Performed By: #### V BG, NH33 ####[address] [place], [place] Std Base Excess 2.5 mmol/L Normal -3.0-3.0 [facility] Comment on above: Performed By: #### V BG, NH33 ####[address] [place], [place] FIO2 35% Normal [facility] Comment on above: Performed By: #### V BG, NH33 ####[address] [address] [place], [place] CR Chest Portableon 03-13-20 CR Chest Portable Normal [facility] Comp Metabolic Panelon 03-13 Calcium [Mass/Vol] 8.5 mg/dL Normal 8.4-10.4 [facility] Comment on above: Performed By: #### M G3, CMP3 ####[address] [place], [place] ALP [Catalytic activity/Vol] 82 U/L Normal 38-126 [facility] Comment on above: Performed By: #### M G3, CMP3 ####[address] [place], [place] ALT [Catalytic activity/Vol] 12 U/L Normal 0-34 [facility] Comment on above: Result Comment: The ALT test is performed by an updated assay method.Please note that the reference intervals have beenchanged and are now sex specific. Performed By: #### M G3, CMP3 ####[address] [place], [place] Anion gap [Moles/Vol] 7 mmol/L Normal 3-13 [facility] Comment on above: Performed By: #### M G3, CMP3 ####[address] [place], [place] AST [Catalytic activity/Vol] 20 U/L Normal 15-46 [facility] Comment on above: Performed By: #### Gerald G3, CMP3 ####[address] [place], [place] Bilirubin [Mass/Vol] 0.5 mg/dL Normal 0.2-1.3 [facility] Comment on above: Performed By: #### Gerald G3, CMP3 ####[address] [place], [place] CO2 [Moles/Vol] 29 mmol/L Normal 22-30 [facility] Comment on above: Performed By: #### Gerald G3, CMP3 ####[address] [place], [place] Creatinine [Mass/Vol] 2.27 mg/dL High 0.52-1.25 [facility] Comment on above: Performed By: #### Gerald G3, CMP3 ####[address] [place], [place] GFR/1.73 sq M.predicted among blacks MDRD (S/P/Bld) [Vol rate/Area] 24.1 mL/min/{1.73_m2} Abnormal >60 [facility] Comment on above: Performed By: #### Gerald G3, CMP3 ####[address] [place], [place] GFR/1.73 sq M.predicted among non-blacks MDRD (S/P/Bld) [Vol rate/Area] 20.8 mL/min/{1.73_m2} Abnormal >60 [facility] Comment on above: Result Comment: KDIG O guidelines provide the following GFR categories:Stage GFR(ml/min/1.73 m2) TermsG1 >=90 Normal or highG2 60-89 Mildly decreased*G3a 45-59 Mildly to moderately [id number] 30-44 Moderately to severely decreasedG4 15-29 Severely [...] renal tubular creatinine secretion. Performed By: #### Gerald [place], CMP3 ####[address] [place], [place] Glucose [Mass/Vol] 194 mg/dL High 70-100 [facility] Comment on above: Performed By: #### Gerald [place], CMP3 ####[address] [place], [place] Protein [Mass/Vol] 6.6 g/dL Normal 6.3-8.2 [facility] Comment on above: Performed By: #### Gerald [place], CMP3 ####[address] [place], [place] Urea nitrogen [Mass/Vol] 16 mg/dL Normal 9-20 [facility] Comment on above: Performed By: #### Gerald [place]al[place] CMP3 ####[address] [place], [place] Potassium [Moles/Vol] 4.0 mmol/L Normal 3.5-5.1 [facility] Comment on above: Performed By: #### Gerald G3, CMP3 ####[address] [place], [place] Albumin [Mass/Vol] 3.4 g/dL Low 3.5-5.0 [facility] Comment on above: Performed By: #### Gerald G3, CMP3 ####[address] [place], [place] Chloride [Moles/Vol] 106 mmol/L Normal 98-107 [facility] Comment on above: Performed By: #### Gerald G3, CMP3 ####[address] [place], [place] Sodium [Moles/Vol] 142 mmol/L Normal 135-145 [facility] Comment on above: Performed By: #### M G3, CMP3 ####[address] [facility] [place] Comp Panel with Mg Reflexon 03-13-2021 Calcium [Mass/Vol] 6.9 mg/dL Low 8.4-10.4 [facility] Comment on above: Performed By: #### M G3, LFT3, HEMDF, CMP3M ####[address] [facility] [place] ALP [Catalytic activity/Vol] 50 U/L Normal 38-126 [facility] Comment on above: Performed By: #### M G3, LFT3, HEMDF, CMP3M ####[id number] [facility], [place] ALT [Catalytic activity/Vol] 11 U/L Normal 0-34 [facility] Comment on above: Result Comment: The ALT test is performed by an updated assay method.Please note that the reference intervals have beenchanged and are now sex specific. Performed By: #### M G3, LFT3, HEMDF, CMP3M ####[address] [facility], [place] Anion gap [Moles/Vol] 5 mmol/L Normal 3-13 [facility] Comment on above: Performed By: #### M G3, LFT3, HEMDF, CMP3M ####[address] [facility], [place] AST [Catalytic activity/Vol] 20 U/L Normal 15-46 [facility] Comment on above: Performed By: #### M G3, LFT3, HEMDF, CMP3M ####[address] [facility], [place] Bilirubin [Mass/Vol] 0.5 mg/dL Normal 0.2-1.3 [facility] Comment on above: Performed By: #### M G3, LFT3, HEMDF, CMP3M ####[address] [facility], [place] CO2 [Moles/Vol] 22 mmol/L Normal 22-30 [facility] Comment on above: Performed By: #### M G3, LFT3, HEMDF, CMP3M ####[address] [place] [address] Creatinine [Mass/Vol] 1.29 mg/dL High 0.52-1.25 [facility] Comment on above: Performed By: #### M G3, LFT3, HEMDF, CMP3M ####[facility] [employer] [place] [address] GFR/1.73 sq M.predicted among blacks MDRD (S/P/Bld) [Vol rate/Area] 47.7 mL/min/{1.73_m2} Abnormal >60 [facility] Comment on above: Performed By: #### M G3, LFT3, HEMDF, CMP3M ####[address] [place] [address] GFR/1.73 sq M.predicted among non-blacks MDRD (S/P/Bld) [Vol rate/Area] 41.2 mL/min/{1.73_m2} Abnormal >60 [facility] Comment on above: Result Comment: KDIG O guidelines provide the following GFR categories:Stage GFR(ml/min/1.73 m2) TermsG1 >=90 Normal or highG2 60-89 Mildly decreased*G3a 45-59 Mildly to moderately [id number] 30-44 Moderately to severely decreasedG4 15-29 Severely [...] By: #### M G3, LFT3, HEMDF, CMP3M ####[employer] [place] [address] Glucose [Mass/Vol] 212 mg/dL High 70-100 [facility] Comment on above: Performed By: #### M G3, LFT3, HEMDF, CMP3M ####[address] [facility] [place] [address] Protein [Mass/Vol] 5.2 g/dL Low 6.3-8.2 [facility] Comment on above: Performed By: #### M G3, LFT3, HEMDF, CMP3M ####[address] [facility] [place] [address] Urea nitrogen [Mass/Vol] 12 mg/dL Normal 9-20 [facility] Comment on above: Performed By: #### M G3, LFT3, HEMDF, CMP3M ####[address] [facility] [place] [address] Potassium [Moles/Vol] 3.4 mmol/L Low 3.5-5.1 [facility] Comment on above: Performed By: #### M G3, LFT3, HEMDF, CMP3M ####[address] [place] [address] Albumin [Mass/Vol] 2.5 g/dL Low 3.5-5.0 [facility] Comment on above: Performed By: #### M G3, LFT3, HEMDF, CMP3M ####[address] [facility] [place] [address] Chloride [Moles/Vol] 112 mmol/L High 98-107 [facility] Comment on above: Performed By: #### M G3, LFT3, HEMDF, CMP3M ####[address] [facility] [place] [address] Sodium [Moles/Vol] 139 mmol/L Normal 135-145 [facility] Comment on above: Performed By: #### M G3, LFT3, HEMDF, CMP3M ####[address] [facility] [place] [address] Glucose,Bedsideon 03-13-2021 Glucose [Mass/Vol] 173 mg/dL High 70-100 [facility] Comment on above: Result Comment: Test performed by glucose meter. Results may be 10%-15% lowerthan serum/plasma values. (CLIA ID [id number]) Performed By: #### B GLU ####[address] [place], [place] Glucose [Mass/Vol] 180 mg/dL High 70-100 [facility] Comment on above: Result Comment: Test performed by glucose meter. Results may be 10%-15% lowerthan serum/plasma values. (CLIA ID [id number]) Performed By: #### B GLU ####[address] Glucose [Mass/Vol] 202 mg/dL High 70-100 [facility] Comment on above: Result Comment: Test performed by glucose meter. Results may be 10%-15% lowerthan serum/plasma values. (CLIA ID [id number]) Performed By: #### B GLU ####[address] [place], [place] Hemogram w/ Autodiffon 03-13 Abs Baso Cnt 0.1 10*3/uL Normal 0.0-0.2 [facility] Comment on above: Performed By: #### M G3, LFT3, HEMDF, CMP3M ####[address] Abs Neutrophile Cnt 3.2 10*3/uL Normal 1.8-7.0 [facility] Comment on above: Performed By: #### M G3, LFT3, HEMDF, CMP3M ####[address] Basophils/100 WBC (Bld) 1.0 % Normal 0.0-2.0 [facility] Comment on above: Performed By: #### M G3, LFT3, HEMDF, CMP3M ####[address] Eosinophils (Bld) [#/Vol] 0.3 10*3/uL Normal 0.0-0.5 [facility] Comment on above: Performed By: #### M G3, LFT3, HEMDF, CMP3M ####[address] [place] [address] Eosinophils/100 WBC (Bld) 6.3 % High 1.0-6.0 [facility] Comment on above: Performed By: #### M G3, LFT3, HEMDF, CMP3M ####[address] [place], [place] Erythrocyte distribution width (RBC) [Ratio] 17.0 % High 11.5-14.5 [facility] Comment on above: Performed By: #### M G3, LFT3, HEMDF, CMP3M ####[address] Granulocytes/100 WBC (Bld) 62.8 % Normal 40.0-80.0 [facility] Comment on above: Performed By: #### M G3, LFT3, HEMDF, CMP3M ####[address] Hematocrit (Bld) [Volume fraction] 27.7 % Low 35.0-47.0 [facility] Comment on above: Performed By: #### M G3, LFT3, HEMDF, CMP3M ####[address] Hemoglobin (Bld) [Mass/Vol] 8.7 g/dL Low 11.7-16.0 [facility] Comment on above: Performed By: #### M G3, LFT3, HEMDF, CMP3M ####[address] Lymphocytes (Bld) [#/Vol] 1.0 10*3/uL Normal 1.0-4.3 [facility] Comment on above: Performed By: #### M G3, LFT3, HEMDF, CMP3M ####[address] [address] Lymphocytes/100 WBC (Bld) 19.5 % Low 20.0-40.0 [facility] Comment on above: Performed By: #### M G3, LFT3, HEMDF, CMP3M ####[address] [place], [place] MCH (RBC) [Entitic mass] 28.0 pg Normal 26.0-34.0 [facility] Comment on above: Performed By: #### M G3, LFT3, HEMDF, CMP3M ####[address] [place], [place] MCHC 31.3 % Low 32.0-36.0 [facility] Comment on above: Performed By: #### M G3, LFT3, HEMDF, CMP3M ####[address] [place], [place] MCV (RBC) [Entitic vol] 89.6 fL Normal 79.0-98.0 [facility] Comment on above: Performed By: #### M G3, LFT3, HEMDF, CMP3M ####[address] Monocytes (Bld) [#/Vol] 0.5 10*3/uL Normal 0.0-0.8 [facility] Comment on above: Performed By: #### M G3, LFT3, HEMDF, CMP3M ####[address] [place], [place] Monocytes/100 WBC (Bld) 10.4 % High 2.0-10.0 [facility] Comment on above: Performed By: #### M G3, LFT3, HEMDF, CMP3M ####[address] Platelet mean volume (Bld) [Entitic vol] 9.8 fL Normal 7.4-10.4 [facility] Comment on above: Performed By: #### M G3, LFT3, HEMDF, CMP3M ####[address] Platelets (Bld) [#/Vol] 197 10*3/uL Normal 140-440 [facility] Comment on above: Performed By: #### M G3, LFT3, HEMDF, CMP3M ####[address] [place], [place] RBC (Bld) [#/Vol] 3.09 10*6/uL Low 3.80-5.20 [facility] Comment on above: Performed By: #### M G3, LFT3, HEMDF, CMP3M ####[address] [place], [place] WBC (Bld) [#/Vol] 5.1 10*3/uL Normal 3.6-10.7 [facility] Comment on above: Performed By: #### M G3, LFT3, HEMDF, CMP3M ####[address] [place], [place] Hepatic Functionon 1 Bilirubin.indirect [Mass/Vol] 0.0 mg/dL Normal 0.0-0.3 [facility] Comment on above: Performed By: #### M G3, LFT3, HEMDF, CMP3M ####[address] [place], [place] Magnesiumon 03-13-2021 Magnesium [Mass/Vol] 1.6 mg/dL Normal 1.6-2.3 [facility] Comment on above: Performed By: #### M G3, LFT3, HEMDF, CMP3M ####[address] Vancomycin Troughon 03-13-20 21 Vancomycin Trough 22.1 ug/mL High 15.0-20.0 [facility] Comment on above: Result Comment: . Performed By: #### V ANCT ####[address] [place], [place] Comp Panel with Mg Reflexon 03-12-2021 ALP [Catalytic activity/Vol] 76 U/L Normal 38-126 [facility] Comment on above: Performed By: #### C MP3M, HEMDF ####[address] [place], [place] ALT [Catalytic activity/Vol] 11 U/L Normal 0-34 [facility] Comment on above: Result Comment: The ALT test is performed by an updated assay method.Please note that the reference intervals have beenchanged and are now sex specific. Performed By: #### C MP3M, HEMDF ####[address] [employer] [facility] [place] Calcium [Mass/Vol] 8.3 mg/dL Low 8.4-10.4 [facility] Comment on above: Performed By: #### C MP3M, HEMDF ####[address] [place], [place] Glucose [Mass/Vol] 202 mg/dL High 70-100 [facility] Comment on above: Performed By: #### C MP3M, HEMDF ####[address] [place] Protein [Mass/Vol] 6.0 g/dL Low 6.3-8.2 [facility] Comment on above: Performed By: #### C MP3M, HEMDF ####[address] [place] Urea nitrogen [Mass/Vol] 10 mg/dL Normal 9-20 [facility] Comment on above: Performed By: #### C MP3M, HEMDF ####[address] [place] Anion gap [Moles/Vol] 5 mmol/L Normal 3-13 [facility] Comment on above: Performed By: #### C MP3M, HEMDF ####[address] [employer] [facility] [place] AST [Catalytic activity/Vol] 19 U/L Normal 15-46 [facility] Comment on above: Performed By: #### C MP3M, HEMDF ####[address] [facility] [place] Bilirubin [Mass/Vol] 0.5 mg/dL Normal 0.2-1.3 [facility] Comment on above: Performed By: #### C MP3M, HEMDF ####[address] [place], [place] CO2 [Moles/Vol] 29 mmol/L Normal 22-30 [facility] Comment on above: Performed By: #### C MP3M, HEMDF ####[address] [place], [place] Creatinine [Mass/Vol] 0.84 mg/dL Normal 0.52-1.25 [facility] Comment on above: Performed By: #### C MP3M, HEMDF ####[address] [place], [place] GFR/1.73 sq M.predicted among blacks MDRD (S/P/Bld) [Vol rate/Area] 80.2 mL/min/{1.73_m2} Normal >60 [facility] Comment on above: Performed By: #### C MP3M, HEMDF ####[address] [place], [place] GFR/1.73 sq M.predicted among non-blacks MDRD (S/P/Bld) [Vol rate/Area] 69.2 mL/min/{1.73_m2} Normal >60 [facility] Comment on above: Result Comment: KDIG O guidelines provide the following GFR categories:Stage GFR(ml/min/1.73 m2) TermsG1 >=90 Normal or highG2 60-89 Mildly decreased*G3a 45-59 Mildly to moderately [id number] 30-44 Moderately to severely decreasedG4 15-29 Severely [...] secretion. Performed By: #### C MP3M, HEMDF ####[address] [place], [place] Albumin [Mass/Vol] 3.0 g/dL Low 3.5-5.0 [facility] Comment on above: Performed By: #### C MP3M, HEMDF ####[facility] [employer] [id number] [place] [place] [place] [address] Potassium [Moles/Vol] 3.6 mmol/L Normal 3.5-5.1 [facility] Comment on above: Performed By: #### C MP3M, HEMDF ####[facility] [employer] [id number] [place] [place] [place] [address] Sodium [Moles/Vol] 140 mmol/L Normal 135-145 [facility] Comment on above: Performed By: #### C MP3M, HEMDF ####[facility] [employer] [id number] [place] [address] Chloride [Moles/Vol] 105 mmol/L Normal 98-107 [facility] Comment on above: Performed By: #### C MP3M, HEMDF ####[facility] [employer] [id number] [place] [address] Glucose,Bedsideon 03-12-2021 Glucose [Mass/Vol] 255 mg/dL High 70-100 [facility] Comment on above: Result Comment: Test performed by glucose meter. Results may be 10%-15% lowerthan serum/plasma values. (CLIA ID [id number]) Performed By: #### B GLU ####[facility] [employer] [id number] [place] [address] Glucose [Mass/Vol] 200 mg/dL High 70-100 [facility] Comment on above: Result Comment: care giver Notified;Test performed by glucose meter. Results may be 10%-15% lowerthan serum/plasma values. (CLIA ID [id number]) Performed By: #### B GLU ####[facility] [employer] [id number] [place] [address] Glucose [Mass/Vol] 200 mg/dL High 70-100 [facility] Comment on above: Result Comment: care giver Notified;Test performed by glucose meter. Results may be 10%-15% lowerthan serum/plasma values. (CLIA ID [id number]) Performed By: #### B GLU ####[facility] [employer] [id number] [place], [place] Glucose [Mass/Vol] 166 mg/dL High 70-100 [facility] Comment on above: Result Comment: care giver Notified;Test performed by glucose meter. Results may be 10%-15% lowerthan serum/plasma values. (CLIA ID [id number]) Performed By: #### B GLU ####[facility] [employer] [id number] [place], [place] Hemogram w/ Autodiffon 03-12 Abs Baso Cnt 0.0 10*3/uL Normal 0.0-0.2 [facility] Comment on above: Performed By: #### C MP3M, HEMDF ####[facility] [employer] [id number] [place], [place] Abs Neutrophile Cnt 2.9 10*3/uL Normal 1.8-7.0 [facility] Comment on above: Performed By: #### C MP3M, HEMDF ####[employer] [id number] [place], [place] Basophils/100 WBC (Bld) 0.6 % Normal 0.0-2.0 [facility] Comment on above: Performed By: #### C MP3M, HEMDF ####[facility] [employer] [id number] [place], [place] Eosinophils (Bld) [#/Vol] 0.4 10*3/uL Normal 0.0-0.5 [facility] Comment on above: Performed By: #### C MP3M, HEMDF ####[facility] [employer] [id number] [place], [place] Eosinophils/100 WBC (Bld) 7.8 % High 1.0-6.0 [facility] Comment on above: Performed By: #### C MP3M, HEMDF ####[facility] [employer] [id number] [place], [place] Erythrocyte distribution width (RBC) [Ratio] 16.8 % High 11.5-14.5 [facility] Comment on above: Performed By: #### C MP3M, HEMDF ####[address] [place], [place] Granulocytes/100 WBC (Bld) 56.1 % Normal 40.0-80.0 [facility] Comment on above: Performed By: #### C MP3M, HEMDF ####[address] [place], [place] Hematocrit (Bld) [Volume fraction] 31.2 % Low 35.0-47.0 [facility] Comment on above: Performed By: #### C MP3M, HEMDF ####[address] [place], [place] Hemoglobin (Bld) [Mass/Vol] 10.0 g/dL Low 11.7-16.0 [facility] Comment on above: Performed By: #### C MP3M, HEMDF ####[address] Lymphocytes (Bld) [#/Vol] 1.4 10*3/uL Normal 1.0-4.3 [facility] Comment on above: Performed By: #### C MP3M, HEMDF ####[address] [place], [place] Lymphocytes/100 WBC (Bld) 26.9 % Normal 20.0-40.0 [facility] Comment on above: Performed By: #### C MP3M, HEMDF ####[address] [place], [place] MCH (RBC) [Entitic mass] 28.4 pg Normal 26.0-34.0 [facility] Comment on above: Performed By: #### C MP3M, HEMDF ####[address] [place], [place] MCHC 31.9 % Low 32.0-36.0 [facility] Comment on above: Performed By: #### C MP3M, HEMDF ####[address] MCV (RBC) [Entitic vol] 89.1 fL Normal 79.0-98.0 [facility] Comment on above: Performed By: #### C MP3M, HEMDF ####[address] [place], [place] Monocytes (Bld) [#/Vol] 0.4 10*3/uL Normal 0.0-0.8 [facility] Comment on above: Performed By: #### C MP3M, HEMDF ####[address] [place], [place] Monocytes/100 WBC (Bld) 8.6 % Normal 2.0-10.0 [facility] Comment on above: Performed By: #### C MP3M, HEMDF ####[address] [place], [place] Platelet mean volume (Bld) [Entitic vol] 9.8 fL Normal 7.4-10.4 [facility] Comment on above: Performed By: #### C MP3M, HEMDF ####[address] [place], [place] Platelets (Bld) [#/Vol] 206 10*3/uL Normal 140-440 [facility] Comment on above: Performed By: #### C MP3M, HEMDF ####[address] [place], [place] RBC (Bld) [#/Vol] 3.51 10*6/uL Low 3.80-5.20 [facility] Comment on above: Performed By: #### C MP3M, HEMDF ####[address] [place], [place] WBC (Bld) [#/Vol] 5.2 10*3/uL Normal 3.6-10.7 [facility] Comment on above: Performed By: #### C MP3M, HEMDF ####[id number] [place], [place] Comp Panel with Mg Reflexon 03-11-2021 ALP [Catalytic activity/Vol] 62 U/L Normal 38-126 [facility] Comment on above: Performed By: #### C MP3M, HEMDF ####[id number] ALT [Catalytic activity/Vol] 10 U/L Normal 0-34 [facility] Comment on above: Result Comment: The ALT test is performed by an updated assay method.Please note that the reference intervals have beenchanged and are now sex specific. Performed By: #### C MP3M, HEMDF ####[facility] [employer] [id number] AST [Catalytic activity/Vol] 22 U/L Normal 15-46 [facility] Comment on above: Performed By: #### C MP3M, HEMDF ####[place] [address] Calcium [Mass/Vol] 8.2 mg/dL Low 8.4-10.4 [facility] Comment on above: Performed By: #### C MP3M, HEMDF ####[facility] [employer] [id number] Glucose [Mass/Vol] 213 mg/dL High 70-100 [facility] Comment on above: Performed By: #### C MP3M, HEMDF ####[place] [address] Protein [Mass/Vol] 5.6 g/dL Low 6.3-8.2 [facility] Comment on above: Performed By: #### C MP3M, HEMDF ####[facility] [employer] [id number] Urea nitrogen [Mass/Vol] 9 mg/dL Normal 9-20 [facility] Comment on above: Performed By: #### C MP3M, HEMDF ####[place] [address] Anion gap [Moles/Vol] 4 mmol/L Normal 3-13 [facility] Comment on above: Performed By: #### C MP3M, HEMDF ####[facility] [place] [address] Bilirubin [Mass/Vol] 0.6 mg/dL Normal 0.2-1.3 [facility] Comment on above: Performed By: #### C MP3M, HEMDF ####[facility] [place] [address] CO2 [Moles/Vol] 28 mmol/L Normal 22-30 [facility] Comment on above: Performed By: #### C MP3M, HEMDF ####[place] [address] [place] [address] Creatinine [Mass/Vol] 0.66 mg/dL Normal 0.52-1.25 [facility] Comment on above: Performed By: #### C MP3M, HEMDF ####[place] [address] [place] [address] GFR/1.73 sq M.predicted among blacks MDRD (S/P/Bld) [Vol rate/Area] mL/min/{1.73_m2} Normal >60 [facility] Comment on above: Performed By: #### C MP3M, HEMDF ####[place] [address] [place] [address] GFR/1.73 sq M.predicted among non-blacks MDRD (S/P/Bld) [Vol rate/Area] 87.9 mL/min/{1.73_m2} Normal >60 [facility] Comment on above: Result Comment: KDIG O guidelines provide the following GFR categories:Stage GFR(ml/min/1.73 m2) TermsG1 >=90 Normal or highG2 60-89 Mildly decreased*G3a 45-59 Mildly to moderately walartuuhL7x 30-44 Moderately to severely decreasedG4 15-29 Severely [...] secretion. Performed By: #### C MP3M, HEMDF ####[place] [address] [place] [address] Albumin [Mass/Vol] 2.8 g/dL Low 3.5-5.0 [facility] Comment on above: Performed By: #### C MP3M, HEMDF ####[place] [address] [place] [address] Chloride [Moles/Vol] 107 mmol/L Normal 98-107 [facility] Comment on above: Performed By: #### C MP3M, HEMDF ####[place] [address] [place] [address] Potassium [Moles/Vol] 3.7 mmol/L Normal 3.5-5.1 [facility] Comment on above: Performed By: #### C MP3M, HEMDF ####[place] [address] [place] [address] Sodium [Moles/Vol] 138 mmol/L Normal 135-145 [facility] Comment on above: Performed By: #### C MP3M, HEMDF ####[place] [address] [place] [address] Glucose,Bedsideon 03-11-2021 Glucose [Mass/Vol] 227 mg/dL High 70-100 [facility] Comment on above: Result Comment: Test performed by glucose meter. Results may be 10%-15% lowerthan serum/plasma values. (CLIA ID [id number]) Performed By: #### B GLU ####[facility] [employer] [id number] [place] [address] Glucose [Mass/Vol] 161 mg/dL High 70-100 [facility] Comment on above: Result Comment: care giver Notified;Test performed by glucose meter. Results may be 10%-15% lowerthan serum/plasma values. (CLIA ID [id number]) Performed By: #### B GLU ####[place] [address] [place], [place] Glucose [Mass/Vol] 171 mg/dL High 70-100 [facility] Comment on above: Result Comment: care giver Notified;Test performed by glucose meter. Results may be 10%-15% lowerthan serum/plasma values. (CLIA ID [id number]) Performed By: #### B GLU ####[address] Hemogram w/ Autodiffon 03-11 Abs Baso Cnt 0.1 10*3/uL Normal 0.0-0.2 [facility] Comment on above: Performed By: #### C MP3Gerald HEMDF ####[place] [address] [place], [place] Abs Neutrophile Cnt 3.2 10*3/uL Normal 1.8-7.0 [facility] Comment on above: Performed By: #### C MP3Gerald HEMDF ####[address] Basophils/100 WBC (Bld) 1.0 % Normal 0.0-2.0 [facility] Comment on above: Performed By: #### C MP3M, HEMDF ####[place] [address] [place], [place] Eosinophils (Bld) [#/Vol] 0.5 10*3/uL Normal 0.0-0.5 [facility] Comment on above: Performed By: #### C MP3M, HEMDF ####[address] Eosinophils/100 WBC (Bld) 8.4 % High 1.0-6.0 [facility] Comment on above: Performed By: #### C MP3M, HEMDF ####[address] Erythrocyte distribution width (RBC) [Ratio] 16.6 % High 11.5-14.5 [facility] Comment on above: Performed By: #### C MP3M, HEMDF ####[place] [address] [place], [place] Granulocytes/100 WBC (Bld) 54.8 % Normal 40.0-80.0 [facility] Comment on above: Performed By: #### C MP3M, HEMDF ####[place] [address] [place], [place] Hematocrit (Bld) [Volume fraction] 26.3 % Low 35.0-47.0 [facility] Comment on above: Performed By: #### C MP3M, HEMDF ####[place] [address] [place], [place] Hemoglobin (Bld) [Mass/Vol] 8.3 g/dL Low 11.7-16.0 [facility] Comment on above: Performed By: #### C MP3M, HEMDF ####[place] [address] [place], [place] Lymphocytes (Bld) [#/Vol] 1.6 10*3/uL Normal 1.0-4.3 [facility] Comment on above: Performed By: #### C MP3M, HEMDF ####[place] [address] [place], [place] Lymphocytes/100 WBC (Bld) 26.6 % Normal 20.0-40.0 [facility] Comment on above: Performed By: #### C MP3M, HEMDF ####[place] [address] [place], [place] MCH (RBC) [Entitic mass] 28.3 pg Normal 26.0-34.0 [facility] Comment on above: Performed By: #### C MP3M, HEMDF ####[place] [address] [place], [place] MCHC 31.6 % Low 32.0-36.0 [facility] Comment on above: Performed By: #### C MP3M, HEMDF ####[place] [address] [place], [place] MCV (RBC) [Entitic vol] 89.4 fL Normal 79.0-98.0 [facility] Comment on above: Performed By: #### C MP3M, HEMDF ####[place] [address] [place], [place] Monocytes (Bld) [#/Vol] 0.5 10*3/uL Normal 0.0-0.8 [facility] Comment on above: Performed By: #### C MP3M, HEMDF ####[place] [address] [place], [place] Monocytes/100 WBC (Bld) 9.2 % Normal 2.0-10.0 [facility] Comment on above: Performed By: #### C MP3M, HEMDF ####[place] [address] [place], [place] Platelet mean volume (Bld) [Entitic vol] 9.8 fL Normal 7.4-10.4 [facility] Comment on above: Performed By: #### C MP3M, HEMDF ####[address] Platelets (Bld) [#/Vol] 227 10*3/uL Normal 140-440 [facility] Comment on above: Performed By: #### C MP3M, HEMDF ####[place] [address] [place], [place] RBC (Bld) [#/Vol] 2.94 10*6/uL Low 3.80-5.20 [facility] Comment on above: Performed By: #### C MP3M, HEMDF ####[place] [address] [place], [place] WBC (Bld) [#/Vol] 5.9 10*3/uL Normal 3.6-10.7 [facility] Comment on above: Performed By: #### C MP3M, HEMDF ####[place] [address] [place], [place] Vancomycin Troughon 12-10-20 21 Vancomycin Trough 16.9 ug/mL Normal 15.0-20.0 [facility] Comment on above: Result Comment: . Performed By: #### V ANCT ####[place] [address] Comp Panel with Mg Reflexon 03-10-2021 ALT [Catalytic activity/Vol] 9 U/L Normal 0-34 [facility] Comment on above: Result Comment: The ALT test is performed by an updated assay method.Please note that the reference intervals have beenchanged and are now sex specific. Performed By: #### C MP3M, MG3, HEMDF ####[place] [address] Calcium [Mass/Vol] 8.2 mg/dL Low 8.4-10.4 [facility] Comment on above: Performed By: #### C MP3M, MG3, HEMDF ####[place] [address] Glucose [Mass/Vol] 141 mg/dL High 70-100 [facility] Comment on above: Performed By: #### C MP3M, MG3, HEMDF ####[place] [address] ALP [Catalytic activity/Vol] 67 U/L Normal 38-126 [facility] Comment on above: Performed By: #### C MP3M, MG3, HEMDF ####[place] [address] Anion gap [Moles/Vol] 4 mmol/L Normal 3-13 [facility] Comment on above: Performed By: #### C MP3M, MG3, HEMDF ####[place] [address] AST [Catalytic activity/Vol] 18 U/L Normal 15-46 [facility] Comment on above: Performed By: #### C MP3M, MG3, HEMDF ####[place] [address] Bilirubin [Mass/Vol] 0.5 mg/dL Normal 0.2-1.3 [facility] Comment on above: Performed By: #### C MP3M, MG3, HEMDF ####[facility] [employer] [id number] [place] CO2 [Moles/Vol] 30 mmol/L Normal 22-30 [facility] Comment on above: Performed By: #### C MP3M, MG3, HEMDF ####[facility] [employer] [id number] [place], [place] Creatinine [Mass/Vol] 0.61 mg/dL Normal 0.52-1.25 [facility] Comment on above: Performed By: #### C MP3M, MG3, HEMDF ####[facility] [place], [place] eGFR OTHER > 90.0 Normal >60 [facility] Comment on above: Result Comment: KDIG O guidelines provide the following GFR categories:Stage GFR(ml/min/1.73 m2) TermsG1 >=90 Normal or highG2 60-89 Mildly decreased*G3a 45-59 Mildly to moderately uyufbggtaJ5a 30-44 Moderately to severely decreasedG4 15-29 Severely [...] creatinine secretion. Performed By: #### C MP3M, MG3, HEMDF ####[facility] [employer] [id number] [place] GFR/1.73 sq M.predicted among blacks MDRD (S/P/Bld) [Vol rate/Area] mL/min/{1.73_m2} Normal >60 [facility] Comment on above: Performed By: #### C MP3M, MG3, HEMDF ####[facility] [employer] [id number] [place] Protein [Mass/Vol] 5.6 g/dL Low 6.3-8.2 [facility] Comment on above: Performed By: #### C MP3M, MG3, HEMDF ####[place] [address] [place], [place] Urea nitrogen [Mass/Vol] 8 mg/dL Low 9-20 [facility] Comment on above: Performed By: #### C MP3M, MG3, HEMDF ####[place] [address] [place], [place] Potassium [Moles/Vol] 3.5 mmol/L Normal 3.5-5.1 [facility] Comment on above: Performed By: #### C MP3M, MG3, HEMDF ####[place] [address] [place], [place] Sodium [Moles/Vol] 139 mmol/L Normal 135-145 [facility] Comment on above: Performed By: #### C MP3M, MG3, HEMDF ####[place] [address] [place], [place] Albumin [Mass/Vol] 2.7 g/dL Low 3.5-5.0 [facility] Comment on above: Performed By: #### C MP3M, MG3, HEMDF ####[place] [address] [place], [place] Chloride [Moles/Vol] 106 mmol/L Normal 98-107 [facility] Comment on above: Performed By: #### C MP3M, MG3, HEMDF ####[place] [address] [place], [place] Glucose,Bedsideon 03-10-2021 Glucose [Mass/Vol] 198 mg/dL High 70-100 [facility] Comment on above: Result Comment: Test performed by glucose meter. Results may be 10%-15% lowerthan serum/plasma values. (CLIA ID [id number]) Performed By: #### B GLU ####[place] [address] [place], [place] Glucose [Mass/Vol] 165 mg/dL High 70-100 [facility] Comment on above: Result Comment: Test performed by glucose meter. Results may be 10%-15% lowerthan serum/plasma values. (CLIA ID [id number]) Performed By: #### B GLU ####[facility] [employer] [id number] [place], [place] Glucose [Mass/Vol] 184 mg/dL High 70-100 [facility] Comment on above: Result Comment: Test performed by glucose meter. Results may be 10%-15% lowerthan serum/plasma values. (CLIA ID [id number]) Performed By: #### B GLU ####[place] [address] [place], [place] Glucose [Mass/Vol] 171 mg/dL High 70-100 [facility] Comment on above: Result Comment: Test performed by glucose meter. Results may be 10%-15% lowerthan serum/plasma values. (CLIA ID [id number]) Performed By: #### B GLU ####[facility] [employer] [id number] [place], [place] Hemogram w/ Autodiffon 03-10 Abs Baso Cnt 0.0 10*3/uL Normal 0.0-0.2 [facility] Comment on above: Performed By: #### C MP3M, MG3, HEMDF ####[facility] [employer] [id number] [place], [place] Abs Neutrophile Cnt 2.7 10*3/uL Normal 1.8-7.0 [facility] Comment on above: Performed By: #### C MP3M, MG3, HEMDF ####[facility] [employer] [id number] [place] [address] Basophils/100 WBC (Bld) 0.7 % Normal 0.0-2.0 [facility] Comment on above: Performed By: #### C MP3M, MG3, HEMDF ####[facility] [employer] [id number] [place], [place] Eosinophils (Bld) [#/Vol] 0.5 10*3/uL Normal 0.0-0.5 [facility] Comment on above: Performed By: #### C MP3M, MG3, HEMDF ####[address] Eosinophils/100 WBC (Bld) 9.9 % High 1.0-6.0 [facility] Comment on above: Performed By: #### C MP3M, MG3, HEMDF ####[address] Erythrocyte distribution width (RBC) [Ratio] 16.3 % High 11.5-14.5 [facility] Comment on above: Performed By: #### C MP3M, MG3, HEMDF ####[address] Granulocytes/100 WBC (Bld) 52.2 % Normal 40.0-80.0 [facility] Comment on above: Performed By: #### C MP3M, MG3, HEMDF ####[address] Hematocrit (Bld) [Volume fraction] 30.6 % Low 35.0-47.0 [facility] Comment on above: Performed By: #### C MP3M, MG3, HEMDF ####[place] [address] [place], [place] Hemoglobin (Bld) [Mass/Vol] 9.7 g/dL Low 11.7-16.0 [facility] Comment on above: Performed By: #### C MP3M, MG3, HEMDF ####[address] Lymphocytes (Bld) [#/Vol] 1.5 10*3/uL Normal 1.0-4.3 [facility] Comment on above: Performed By: #### C MP3M, MG3, HEMDF ####[address] Lymphocytes/100 WBC (Bld) 28.1 % Normal 20.0-40.0 [facility] Comment on above: Performed By: #### C MP3M, MG3, HEMDF ####[place] [address] [place], [place] MCH (RBC) [Entitic mass] 28.2 pg Normal 26.0-34.0 [facility] Comment on above: Performed By: #### C MP3M, MG3, HEMDF ####[place] [address] [place], [place] MCHC 31.7 % Low 32.0-36.0 [facility] Comment on above: Performed By: #### C MP3M, MG3, HEMDF ####[place] [address] [place], [place] MCV (RBC) [Entitic vol] 89.2 fL Normal 79.0-98.0 [facility] Comment on above: Performed By: #### C MP3M, MG3, HEMDF ####[place] [address] [place], [place] Monocytes (Bld) [#/Vol] 0.5 10*3/uL Normal 0.0-0.8 [facility] Comment on above: Performed By: #### C MP3M, MG3, HEMDF ####[place] [address] [place], [place] Monocytes/100 WBC (Bld) 9.1 % Normal 2.0-10.0 [facility] Comment on above: Performed By: #### C MP3M, MG3, HEMDF ####[place] [address] [place], [place] Platelet mean volume (Bld) [Entitic vol] 9.6 fL Normal 7.4-10.4 [facility] Comment on above: Performed By: #### C MP3M, MG3, HEMDF ####[place] [address] [place], [place] Platelets (Bld) [#/Vol] 212 10*3/uL Normal 140-440 [facility] Comment on above: Performed By: #### C MP3M, MG3, HEMDF ####[address], [place] RBC (Bld) [#/Vol] 3.42 10*6/uL Low 3.80-5.20 [facility] Comment on above: Performed By: #### C MP3M, MG3, HEMDF ####[address] WBC (Bld) [#/Vol] 5.3 10*3/uL Normal 3.6-10.7 [facility] Comment on above: Performed By: #### C MP3M, MG3, HEMDF ####[address] Magnesiumon 03-10-2021 Magnesium [Mass/Vol] 1.9 mg/dL Normal 1.6-2.3 [facility] Comment on above: Performed By: #### C MP3M, MG3, HEMDF ####[address] VL Venous Duplex US Lower Ex t Bilateralon 03-10-2021 VL Venous Duplex US Lower Ext Bilateral Normal [facility] Vancomycin Troughon 03-10-20 21 Vancomycin Trough 14.4 ug/mL Low 15.0-20.0 [facility] Comment on above: Result Comment: . Performed By: #### V ANCT ####[address] Comp Panel with Mg Reflexon 03-09-2021 ALT [Catalytic activity/Vol] 10 U/L Normal 0-34 [facility] Comment on above: Result Comment: The ALT test is performed by an updated assay method.Please note that the reference intervals have beenchanged and are now sex specific. Performed By: #### H EMDF, CMP3M ####[address] Calcium [Mass/Vol] 8.6 mg/dL Normal 8.4-10.4 [facility] Comment on above: Performed By: #### H EMDF, CMP3M ####[address] Glucose [Mass/Vol] 192 mg/dL High 70-100 [facility] Comment on above: Performed By: #### H HUBER CMP3M ####[place] [address] [place] Urea nitrogen [Mass/Vol] 10 mg/dL Normal 9-20 [facility] Comment on above: Performed By: #### H HUBER CMP3M ####[place] [address] [place], [place] ALP [Catalytic activity/Vol] 90 U/L Normal 38-126 [facility] Comment on above: Performed By: #### H HUBER CMP3M ####[place] [address] [place], [place] Anion gap [Moles/Vol] 7 mmol/L Normal 3-13 [facility] Comment on above: Performed By: #### Tram [employer] CMP3M ####[place] [address] [place], [place] AST [Catalytic activity/Vol] 20 U/L Normal 15-46 [facility] Comment on above: Performed By: #### H HUBER CMP3M ####[place] [address] [place], [place] Bilirubin [Mass/Vol] 0.6 mg/dL Normal 0.2-1.3 [facility] Comment on above: Performed By: #### H HUBER CMP3M ####[place] [address] [place], [place] CO2 [Moles/Vol] 30 mmol/L Normal 22-30 [facility] Comment on above: Performed By: #### [employer] CMP3M ####[place] [address] [place], [place] Creatinine [Mass/Vol] 0.56 mg/dL Normal 0.52-1.25 [facility] Comment on above: Performed By: #### H HUBER CMP3M ####[place] [address] [place], [place] eGFR OTHER > 90.0 Normal >60 [facility] Comment on above: Result Comment: KDIG O guidelines provide the following GFR categories:Stage GFR(ml/min/1.73 m2) TermsG1 >=90 Normal or highG2 60-89 Mildly decreased*G3a 45-59 Mildly to moderately [id number] 30-44 Moderately to severely decreasedG4 15-29 Severely [...] secretion. Performed By: #### H VIKTORIYA NGO3M ####[address] GFR/1.73 sq M.predicted among blacks MDRD (S/P/Bld) [Vol rate/Area] mL/min/{1.73_m2} Normal >60 [facility] Comment on above: Performed By: #### [employer] CMP3M ####[address] Protein [Mass/Vol] 6.6 g/dL Normal 6.3-8.2 [facility] Comment on above: Performed By: #### [employer] CMP3M ####[place] [address] [place], [place] Potassium [Moles/Vol] 3.7 mmol/L Normal 3.5-5.1 [facility] Comment on above: Performed By: #### Tram [employer] CMP3M ####[address] Sodium [Moles/Vol] 143 mmol/L Normal 135-145 [facility] Comment on above: Performed By: #### [employer] CMP3M ####[address] [address] Albumin [Mass/Vol] 3.3 g/dL Low 3.5-5.0 [facility] Comment on above: Performed By: #### H VIKTORIYA NGO3M ####[place] [address] [place] [address] Chloride [Moles/Vol] 106 mmol/L Normal 98-107 [facility] Comment on above: Performed By: #### H VIKTORIYA NGO3M ####[place] [address] [place] [address] Glucose,Bedsideon 03-09-2021 Glucose [Mass/Vol] 198 mg/dL High 70-100 [facility] Comment on above: Result Comment: Test performed by glucose meter. Results may be 10%-15% lowerthan serum/plasma values. (CLIA ID [id number]) Performed By: #### B GLU ####[place] [place] [address] Glucose [Mass/Vol] 155 mg/dL High 70-100 [facility] Comment on above: Result Comment: Test performed by glucose meter. Results may be 10%-15% lowerthan serum/plasma values. (CLIA ID [id number]) Performed By: #### B GLU ####[place] [place] [address] Glucose [Mass/Vol] 147 mg/dL High 70-100 [facility] Comment on above: Result Comment: Test performed by glucose meter. Results may be 10%-15% lowerthan serum/plasma values. (CLIA ID [id number]) Performed By: #### B GLU ####[place] [place] [address] Glucose [Mass/Vol] 176 mg/dL High 70-100 [facility] Comment on above: Result Comment: Test performed by glucose meter. Results may be 10%-15% lowerthan serum/plasma values. (CLIA ID [id number]) Performed By: #### B GLU ####[place] [place] [address] Glucose [Mass/Vol] 188 mg/dL High 70-100 [facility] Comment on above: Result Comment: Test performed by glucose meter. Results may be 10%-15% lowerthan serum/plasma values. (CLIA ID [id number]) Performed By: #### B GLU ####[place] [address] [place], [place] Hemoglobin A1Con 03-09-2021 Glucose [Mass/Vol] 171 mg/dL Normal [facility] Comment on above: Performed By: #### H A1C2, PHOS3 ####[place] [address] [place], [place] HbA1c (Bld) [Mass fraction] 7.6 % Abnormal [facility] Comment on above: Result Comment: Norm al less than 5.7%Prediabetes 5.7% to 6.4%Diabetes 6.5% or higher--HgbA1C levels may not be accurate in patients who haverenal disease, received recent blood transfusions, are anemic,or who have dyshemoglobinemia. Performed By: #### H A1C2, PHOS3 ####[address] Hemogram w/ Autodiffon 03-09 Abs Baso Cnt 0.0 10*3/uL Normal 0.0-0.2 [facility] Comment on above: Performed By: #### H EMDF CMP3M ####[place] [address] [place], [place] Abs Neutrophile Cnt 4.4 10*3/uL Normal 1.8-7.0 [facility] Comment on above: Performed By: #### H EMDF CMP3M ####[place] [place], [place] Basophils/100 WBC (Bld) 0.6 % Normal 0.0-2.0 [facility] Comment on above: Performed By: #### H EMDF, CMP3M ####[place] [place], [place] Eosinophils (Bld) [#/Vol] 0.5 10*3/uL Normal 0.0-0.5 [facility] Comment on above: Performed By: #### [employer] CMP3M ####[address] Eosinophils/100 WBC (Bld) 6.7 % High 1.0-6.0 [facility] Comment on above: Performed By: #### [employer] CMP3M ####[address] Erythrocyte distribution width (RBC) [Ratio] 16.4 % High 11.5-14.5 [facility] Comment on above: Performed By: #### [employer] CMP3M ####[address] Granulocytes/100 WBC (Bld) 65.3 % Normal 40.0-80.0 [facility] Comment on above: Performed By: #### [employer] CMP3M ####[address] Hematocrit (Bld) [Volume fraction] 36.0 % Normal 35.0-47.0 [facility] Comment on above: Performed By: #### [employer] CMP3M ####[address] Hemoglobin (Bld) [Mass/Vol] 11.2 g/dL Low 11.7-16.0 [facility] Comment on above: Performed By: #### [employer] CMP3M ####[address] Lymphocytes (Bld) [#/Vol] 1.3 10*3/uL Normal 1.0-4.3 [facility] Comment on above: Performed By: #### [employer] CMP3M ####[address] Lymphocytes/100 WBC (Bld) 18.9 % Low 20.0-40.0 [facility] Comment on above: Performed By: #### Tr[employer] CMP3M ####[place] [place], [place] MCH (RBC) [Entitic mass] 28.1 pg Normal 26.0-34.0 [facility] Comment on above: Performed By: #### H HUBER CMP3M ####[place] [id number] [place], [place] MCHC 31.1 % Low 32.0-36.0 [facility] Comment on above: Performed By: #### H HUBER CMP3M ####[id number] [place], [place] MCV (RBC) [Entitic vol] 90.3 fL Normal 79.0-98.0 [facility] Comment on above: Performed By: #### Tram NGO CMP3M ####[id number] [place], [place] Monocytes (Bld) [#/Vol] 0.6 10*3/uL Normal 0.0-0.8 [facility] Comment on above: Performed By: #### [employer] CMP3M ####[address] Monocytes/100 WBC (Bld) 8.5 % Normal 2.0-10.0 [facility] Comment on above: Performed By: #### [employer] CMP3M ####[id number] [place], [place] Platelet mean volume (Bld) [Entitic vol] 9.5 fL Normal 7.4-10.4 [facility] Comment on above: Performed By: #### Tr[employer] CMP3M ####[id number] [place], [place] Platelets (Bld) [#/Vol] 223 10*3/uL Normal 140-440 [facility] Comment on above: Performed By: #### H HUBER CMP3M ####[id number] [place], [place] RBC (Bld) [#/Vol] 3.98 10*6/uL Normal 3.80-5.20 [facility] Comment on above: Performed By: #### H EMDCarmelo CMP3M ####[id number] [place], [place] WBC (Bld) [#/Vol] 6.8 10*3/uL Normal 3.6-10.7 [facility] Comment on above: Performed By: #### H EMDCarmelo CMP3M ####[id number] [place], [place] Phosphoruson 03-09-2021 Phosphate [Mass/Vol] 3.8 mg/dL Normal 2.5-4.5 [facility] Comment on above: Performed By: #### H A1C2, PHOS3 ####[id number] [place], [place] Add on test from HISon 03-08 Add on test from HIS Accepted Normal [facility] Comment on above: Result Comment: Spec imen available & acceptable for analysis. Performed By: #### A DDON ####[address] [address] [address] [place], [place] C-Reactive Proteinon 021 CRP [Mass/Vol] 15.0 mg/L High 0.0-9.9 [facility] Comment on above: Result Comment: . Performed By: #### C RP2, PT/AP ####[address] [address] [address] [place], [place] CR Ankle 3+ Views Lefton CR Ankle 3+ Views Left Normal [facility] CR Chest Portableon 03-08-20 21 CR Chest Portable Normal [facility] CR Foot Complete 3+ Views Ri ghton 03-08-2021 CR Foot Complete 3+ Views Right Normal [facility] CR Tibia/Fibula 2 Views Righ ton 03-08-2021 CR Tibia/Fibula 2 Views Right Normal [facility] Comp Metabolic Panelon 03-08 ALP [Catalytic activity/Vol] 87 U/L Normal 38-126 [facility] Comment on above: Performed By: #### C MP3, PCAL, ESR, MG3, LDH3, HEMDF ####[id number] [place], [place] ALT [Catalytic activity/Vol] 11 U/L Normal 0-34 [facility] Comment on above: Result Comment: The ALT test is performed by an updated assay method.Please note that the reference intervals have beenchanged and are now sex specific. Performed By: #### C MP3, PCAL, ESR, MG3, LDH3, HEMDF ####[id number] [facility] [place] AST [Catalytic activity/Vol] 23 U/L Normal 15-46 [facility] Comment on above: Performed By: #### C MP3, PCAL, ESR, MG3, LDH3, HEMDF ####[id number] [place], [place] Calcium [Mass/Vol] 8.9 mg/dL Normal 8.4-10.4 [facility] Comment on above: Performed By: #### C MP3, PCAL, ESR, MG3, LDH3, HEMDF ####[id number] [place], [place] Glucose [Mass/Vol] 212 mg/dL High 70-100 [facility] Comment on above: Performed By: #### C MP3, PCAL, ESR, MG3, LDH3, HEMDF ####[id number] [place], [place] Protein [Mass/Vol] 6.5 g/dL Normal 6.3-8.2 [facility] Comment on above: Performed By: #### C MP3, PCAL, ESR, MG3, LDH3, HEMDF ####[address] [place], [place] Urea nitrogen [Mass/Vol] 12 mg/dL Normal 9-20 [facility] Comment on above: Performed By: #### C MP3, PCAL, ESR, MG3, LDH3, HEMDF ####[id number] [place], [place] Anion gap [Moles/Vol] 6 mmol/L Normal 3-13 [facility] Comment on above: Performed By: #### C MP3, PCAL, ESR, MG3, LDH3, HEMDF ####[id number] [place], [place] Bilirubin [Mass/Vol] 0.5 mg/dL Normal 0.2-1.3 [facility] Comment on above: Performed By: #### C MP3, PCAL, ESR, MG3, LDH3, HEMDF ####[address] [place], [place] CO2 [Moles/Vol] 30 mmol/L Normal 22-30 [facility] Comment on above: Performed By: #### C MP3, PCAL, ESR, MG3, LDH3, HEMDF ####[address] [place], [place] Creatinine [Mass/Vol] 0.59 mg/dL Normal 0.52-1.25 [facility] Comment on above: Performed By: #### C MP3, PCAL, ESR, MG3, LDH3, HEMDF ####[id number] [place], [place] eGFR OTHER > 90.0 Normal >60 [facility] Comment on above: Result Comment: KDIG O guidelines provide the following GFR categories:Stage GFR(ml/min/1.73 m2) TermsG1 >=90 Normal or highG2 60-89 Mildly decreased*G3a 45-59 Mildly to moderately [id number] 30-44 Moderately to severely decreasedG4 15-29 Severely [...] C MP3, PCAL, ESR, MG3, LDH3, HEMDF ####[id number] [place], [place] GFR/1.73 sq M.predicted among blacks MDRD (S/P/Bld) [Vol rate/Area] mL/min/{1.73_m2} Normal >60 [facility] Comment on above: Performed By: #### C MP3, PCAL, ESR, MG3, LDH3, HEMDF ####[address] [place], [place] Potassium [Moles/Vol] 3.8 mmol/L Normal 3.5-5.1 [facility] Comment on above: Performed By: #### C MP3, PCAL, ESR, MG3, LDH3, HEMDF ####[address] [place], [place] Sodium [Moles/Vol] 142 mmol/L Normal 135-145 [facility] Comment on above: Performed By: #### C MP3, PCAL, ESR, MG3, LDH3, HEMDF ####[id number] [place], [place] Albumin [Mass/Vol] 3.3 g/dL Low 3.5-5.0 [facility] Comment on above: Performed By: #### C MP3, PCAL, ESR, MG3, LDH3, HEMDF ####[address] [place], [place] Chloride [Moles/Vol] 105 mmol/L Normal 98-107 [facility] Comment on above: Performed By: #### C MP3, PCAL, ESR, MG3, LDH3, HEMDF ####[id number] [place], [place] ED Provider Noteon ED [facility] Patient: Salazar Coyle : 1950 [...] has been being treated by iv antibiotics WRANGELL I was wearing a surgical mask for the entirety of this encounter. Does this patient come from an ECF, SNF, Rehab, Penitentiary or other Congregate setting: ECF (If yes to above patient needs a Covid-19 test) Salazar Coyle is a 70 y.o. female who presents to the emergency department due to a chronic R foot infection that she has been on IV abx for. PMHx significant for morbid obesity and T2DM. She came from an ECF. At the long-term they have been having difficulty with wound [...] otherwise acutely negative except as in the WRANGELL. Past History No past medical history on [...] and Family: Not on file ? Attends [employer]: Not on file ? Active Member [...] light. Ca (more content not included)... Normal [facility] ED Provider Note Emergency Department Encounter [...] are mis-transcribed.) Kamran Cassidy MD [employer] Kamran Cassidy MD 04/27/211999 Normal [facility] Hemogram w/ Autodiffon 03-08 Abs Baso Cnt 0.0 10*3/uL Normal 0.0-0.2 [facility] Comment on above: Performed By: #### C MP3, PCAL, ESR, MG3, LDH3, HEMDF ####[id number] [place] [id number] Abs Neutrophile Cnt 3.6 10*3/uL Normal 1.8-7.0 [facility] Comment on above: Performed By: #### C MP3, PCAL, ESR, MG3, LDH3, HEMDF ####[id number] [place], [place] Basophils/100 WBC (Bld) 0.6 % Normal 0.0-2.0 [facility] Comment on above: Performed By: #### C MP3, PCAL, ESR, MG3, LDH3, HEMDF ####[id number] [place], [place] Eosinophils (Bld) [#/Vol] 0.4 10*3/uL Normal 0.0-0.5 [facility] Comment on above: Performed By: #### C MP3, PCAL, ESR, MG3, LDH3, HEMDF ####[address] [place], [place] Eosinophils/100 WBC (Bld) 6.8 % High 1.0-6.0 [facility] Comment on above: Performed By: #### C MP3, PCAL, ESR, MG3, LDH3, HEMDF ####[address] Erythrocyte distribution width (RBC) [Ratio] 16.4 % High 11.5-14.5 [facility] Comment on above: Performed By: #### C MP3, PCAL, ESR, MG3, LDH3, HEMDF ####[address] [place], [place] Granulocytes/100 WBC (Bld) 63.4 % Normal 40.0-80.0 [facility] Comment on above: Performed By: #### C MP3, PCAL, ESR, MG3, LDH3, HEMDF ####[address] [place], [place] Hematocrit (Bld) [Volume fraction] 34.6 % Low 35.0-47.0 [facility] Comment on above: Performed By: #### C MP3, PCAL, ESR, MG3, LDH3, HEMDF ####[address] [place], [place] Hemoglobin (Bld) [Mass/Vol] 10.7 g/dL Low 11.7-16.0 [facility] Comment on above: Performed By: #### C MP3, PCAL, ESR, MG3, LDH3, HEMDF ####[address] [place], [place] Lymphocytes (Bld) [#/Vol] 1.3 10*3/uL Normal 1.0-4.3 [facility] Comment on above: Performed By: #### C MP3, PCAL, ESR, MG3, LDH3, HEMDF ####[address] [place], [place] Lymphocytes/100 WBC (Bld) 22.6 % Normal 20.0-40.0 [facility] Comment on above: Performed By: #### C MP3, PCAL, ESR, MG3, LDH3, HEMDF ####[address] [place], [place] MCH (RBC) [Entitic mass] 27.6 pg Normal 26.0-34.0 [facility] Comment on above: Performed By: #### C MP3, PCAL, ESR, MG3, LDH3, HEMDF ####[address] [place] MCHC 30.9 % Low 32.0-36.0 [facility] Comment on above: Performed By: #### C MP3, PCAL, ESR, MG3, LDH3, HEMDF ####[address] [place], [place] MCV (RBC) [Entitic vol] 89.4 fL Normal 79.0-98.0 [facility] Comment on above: Performed By: #### C MP3, PCAL, ESR, MG3, LDH3, HEMDF ####[address] [place], [place] Monocytes (Bld) [#/Vol] 0.4 10*3/uL Normal 0.0-0.8 [facility] Comment on above: Performed By: #### C MP3, PCAL, ESR, MG3, LDH3, HEMDF ####[address] [place], [place] Monocytes/100 WBC (Bld) 6.6 % Normal 2.0-10.0 [facility] Comment on above: Performed By: #### C MP3, PCAL, ESR, MG3, LDH3, HEMDF ####[id number] [place], [place] Platelet mean volume (Bld) [Entitic vol] 9.0 fL Normal 7.4-10.4 [facility] Comment on above: Performed By: #### C MP3, PCAL, ESR, MG3, LDH3, HEMDF ####[address] [place], [place] Platelets (Bld) [#/Vol] 221 10*3/uL Normal 140-440 [facility] Comment on above: Performed By: #### C MP3, PCAL, ESR, MG3, LDH3, HEMDF ####[address] [place], [place] RBC (Bld) [#/Vol] 3.88 10*6/uL Normal 3.80-5.20 [facility] Comment on above: Performed By: #### C MP3, PCAL, ESR, MG3, LDH3, HEMDF ####[address] [place], [place] WBC (Bld) [#/Vol] 5.7 10*3/uL Normal 3.6-10.7 [facility] Comment on above: Performed By: #### C MP3, PCAL, ESR, MG3, LDH3, HEMDF ####[id number] [place], [place] LDHon 03-08-2021 LDH 180 U/L Normal 120-246 [facility] Comment on above: Performed By: #### C MP3, PCAL, ESR, MG3, LDH3, HEMDF ####[address] [place], [place] Magnesiumon 03-08-2021 Magnesium [Mass/Vol] 2.0 mg/dL Normal 1.6-2.3 [facility] Comment on above: Performed By: #### C MP3, PCAL, ESR, MG3, LDH3, HEMDF ####[address] Procalcitoninon 03-08-2021 Procalcitonin 0.06 ng/mL Normal 0.00-0.09 [facility] Comment on above: Performed By: #### C MP3, PCAL, ESR, MG3, LDH3, HEMDF ####[address] Interpretation See Below Normal [facility] Comment on above: Result Comment: PCT <0.50 = Low risk of severe sepsis and/or septic shock.PCT >2.00 = High risk of severe sepsis and/or septic shock. Performed By: #### C MP3, PCAL, ESR, MG3, LDH3, HEMDF ####[address] Protime AND APTTon aPTT Coag (Bld) [Time] 26.5 s Normal 20.0-30.5 [facility] Comment on above: Result Comment: NOTE : The therapeutic time for Heparin anticoagulation,based on Xa activity inhibition, is an APTT of 46-80seconds. Performed By: #### C RP2, PT/AP ####[address] INR 1.1 Normal 0.9-1.1 [facility] Comment on above: Result Comment: Juan [...] Infarction Performed By: #### C RP2, PT/AP ####[address] PT Coag (PPP) [Time] 11.4 s Normal 9.0-12.0 [facility] Comment on above: Result Comment: . Performed By: #### C RP2, PT/AP ####[id number] [place], [place] [id number] 03-08-2021 SARS-CoV-2 (COVID-19) RNA EZIO+probe Ql (Unsp spec) Normal [facility] Comment on above: Performed By: #### C OVID ####[id number] [place], [place] Sed Rateon 03-08-2021 Sed Rate 62 mm/h High 0-20 [facility] Comment on above: Performed By: #### C MP3, PCAL, ESR, MG3, LDH3, HEMDF ####[id number] [place], [place] TS GELon 03-08-2021 TS GEL ABO Group: A Rh, Gel: POS Antibody Screen Gel: NEG Normal [facility] Comment on above: Performed By: #### T SGL ####[facility] VL PVR Arterial Doppler Lwr w/o Exerciseon 03-08-2021 VL PVR Arterial Doppler Lwr w/o Exercise Normal [facility] Clinical Event Note-Vancomyc inon 02-10-2021 Clinical Event Note-Vancomycin Clinical Event: Clinical Event Note: TopicVancomycin Details Weight: 193.7kg Age: 70 Creatinine clearance: >60 Indication: foot ulcers (15-20) Vanco Ordered Dose/Frequency: 1.25g q12 Additional Information: Pt was previously on 1.25g q12 so will restart at same dose with a level prior to 4th dose Electronic Signatures: Giuliana Mcmahon ([facility]) (Signed 10-Feb-2021 11:51) Authored: Clinical Event Note Last Updated: 10-Feb-2021 11:51 by Giuliana Mcmahon ([facility]) Normal [facility] Daily Progress Note-Vascular Surgeryon 02-10-2021 Daily [...] night. Objective Data: Objective Information: T PRBPSpO2 Value36.59013389/6394% Date/Time02/10 5: 5: 5: 6: 5:06 Range(36.1C [...] SUSCEPTIBILITYIN P (more content not included)... Normal [facility] GLUCOSE-POCTon 02-10-2021 Glucose [Mass/Vol] 239 mg/dL High 74 - 99 [facility] Comment on above: Performed By: #### G LAYNE #### [address] [address] Glucose [Mass/Vol] 171 mg/dL High 74 - 99 [facility] Comment on above: Performed By: #### G LAYNE #### [address] [address] BASIC METABOLIC PANELon 01-31 Anion gap [Moles/Vol] 10 mmol/L Normal - 20 [facility] Comment on above: Performed By: #### B MP #### [address] [address] Calcium [Mass/Vol] 8.1 mg/dL Low 8.6 - 10.3 [facility] Comment on above: Performed By: #### B MP #### [address] [address] Chloride [Moles/Vol] 109 mmol/L High 98 - 107 [facility] Comment on above: Performed By: #### B MP #### [address] [address] Creatinine [Mass/Vol] 0.81 mg/dL Normal 0.50 - 1.05 [facility] Comment on above: Performed By: #### B MP #### [address] [address] GFR- AM. >60 Normal >60 [facility] Comment on above: Result Comment: CALC ULATIONS OF ESTIMATED GFR ARE PERFORMED USING THE MDRD STUDY EQUATION FOR THE IDMS-TRACEABLE CREATININE METHODS. CLIN CHEM 2007;53:766-72 Performed By: #### B MP #### [address] [address] GFR-NON AM. >60 Normal >60 [facility] Comment on above: Performed By: #### B MP #### [address] [address] Glucose [Mass/Vol] 204 mg/dL High 74 - 99 [facility] Comment on above: Performed By: #### B MP #### [address] [address] HCO3 (Bld) [Moles/Vol] 32 mmol/L Normal 21 - 32 [facility] Comment on above: Performed By: #### B MP #### [address] [address] Potassium [Moles/Vol] 4.1 mmol/L Normal 3.5 - 5.3 [facility] Comment on above: Performed By: #### B MP #### [address] [address] Sodium [Moles/Vol] 147 mmol/L High 136 - 145 [facility] Comment on above: Performed By: #### B MP #### [address] [address] Urea nitrogen [Mass/Vol] 21 mg/dL Normal 6 - 23 [facility] Comment on above: Performed By: #### B MP #### [address] [address] CBCon 02-09-2021 Erythrocyte distribution width (RBC) [Ratio] 15.5 % High 11.5 - 14.5 [facility] Comment on above: Performed By: #### B MP #### [address] [address] Hematocrit (Bld) [Volume fraction] 33.0 % Low 36.0 - 46.0 [facility] Comment on above: Performed By: #### B MP #### [address] [address] Hemoglobin (Bld) [Mass/Vol] 10.1 g/dL Low 12.0 - 16.0 [facility] Comment on above: Performed By: #### B MP #### [address] [address] MCHC (RBC) [Mass/Vol] 30.6 g/dL Low 32.0 - 36.0 [facility] Comment on above: Performed By: #### B MP #### [address] [address] MCV (RBC) [Entitic vol] 97 fL Normal 80 - 100 [facility] Comment on above: Performed By: #### B MP #### [address] [address] NUCLEATED RBC 0.0 /100 WBC Normal 0.0 - 0.0 [facility] Comment on above: Performed By: #### B MP #### [address] [address] Platelets (Bld) [#/Vol] 255 10*3/uL Normal 150 - 450 [facility] Comment on above: Performed By: #### B MP #### [address] [address] RBC 3.41 x10E12/L Low 4.00 - 5.20 [facility] Comment on above: Performed By: #### B MP #### [address] [address] WBC (Bld) [#/Vol] 4.6 10*3/uL Normal 4.4 - 11.3 [facility] Comment on above: Performed By: #### B MP #### [facility] [address] [place] [address] Daily Progress Note-Cardiolo isidro 02-09-2021 Daily Progress Note-Cardiology Service: Cardiology Subjective Data: SALAZAR COYLE is a 70 year old Female who is Hospital Day # 4. No acute overnight events. Objective Data: Objective Information: T PRBPSpO2 [id number]/6794% Date/Time02/09 5: 5: 5: 5: 5:22 Range(36.6C - 37.5C ) (59 - 68 ) (20 - 20 ) (143 - 160 )/ (66 - 72 ) (93% - 94% ) Highest temp of 37.5 C was recorded at 02/09 5:22 Pain reported at 02/09 10:03: 0 = None T PRBPSpO2 [id number]/6794% Date/Time02/09 5: 5: 5: 5: 5:22 Range(36.6C [...] I personal (more content not included)... Normal [facility] Daily Progress Note-Medicine on 02-09-2021 Daily [...] details. Objective Data: Objective Information: T PRBPSpO2 Value37.98552623/6794% Date/Time02/09 5: 5: 5: 5: 5:22 Range(36.6C [...] pressure ulce (more content not included)... Normal [facility] Daily Progress Note-Palliati ve Glennon 02-09-2021 Daily Progress Note-Palliative Care Consult Type: subsequent visit/care Service: Palliative Care Subjective Data: SALAZAR COYLE is a 70 year old Female who is Hospital Day # 4. Additional Information: 0900AM: patient examined at bedside, no others present for exam. patient denies any symptoms but does report pain in her extremities when being moved. PPS: 30% HCPOA: nabor Gay code status: FULL CODE Objective Data: Objective Information: T PRBPSpO2 Value37.64598583/6794% Date/Time02/09 5: 5: 5: 5: 5:22 Range(36.6C [...] clinical exam (more content not included)... Normal [facility] Daily Progress Note-Podiatry on 02-09-2021 Daily Progress Note-Podiatry Service: Podiatry Subjective Data: SALAZAR COYLE is a 70 year old Female who is Hospital Day # 4. Overnight Events: Patient had an uneventful night. Additional Information: No new complaints. Baseline discomfort with the right extremity when it is moved. No constitutional symptoms. Interval notes reviewed. Objective Data: Objective Information: T PRBPSpO2 Value36.07041925/96% Date/Time02/09 13: 13: 5: 13: 13:36 Range(36.3C - 37.5C ) (59 - 65 ) (20 - 20 ) (147 - 180 )/ (67 - 74 ) (93% - 96% ) Highest temp of 37.5 C was recorded at 02/09 5:22 Pain reported at 02/09 14:23: 0 = None T PRBPSpO2 Value36.02194403/7496% Date/Time02/09 13: 13: 5: 13: 13:36 Range(36.3C [...] reviewed these laboratory results: Glucose_POCT [facility] [id number] 16:28:00 09-Feb-2021 11:31:00 09-Feb-2021 07:11:00 08-Feb-2021 19:43:00 Glucose-[id number] H 228 H 156 H 235 H [...] the ulc (more content not included)... Normal [facility] GLUCOSE-POCTon 02-09-2021 Glucose [Mass/Vol] 235 mg/dL High 74 - 99 [facility] Comment on above: Performed By: #### G LAYNE ####[facility] [place] [address] Glucose [Mass/Vol] 224 mg/dL High 74 - 99 [facility] Comment on above: Performed By: #### G LAYNE ####[facility] [place] [address] Glucose [Mass/Vol] 228 mg/dL High 74 - 99 [facility] Comment on above: Performed By: #### G LAYNE ####[facility] [place] [address] Glucose [Mass/Vol] 156 mg/dL High 74 - 99 [facility] Comment on above: Performed By: #### G LAYNE #### [facility] [address] [place] [address] Consult-Palliative Careon Consult-Palliative Care Service: Service: Palliative Care Consult: Consult requested by (Attending Name): Bashir Lemon Reason: known to you, no viable surgical options, good candidate for palliaitve approach History of Present Illness: HPI: SALAZAR COYLE is a 70 year old Female with Pmhx of obesity, bedridden, chronic jose, HF, anemia, DM, HTN, chronic venous stasis presenting to [facility] from [facility] for right heel wound, leg wound. Patient admitted for vascular workup and ID evaluation for wounds. palliative care consulted for GOC discussions. 1100AM: patient examined at bedside, no others present for exam. patient denies any symptoms but does report pain in her extremities when being moved. PPS: 30% HCPOA: nabor Gay code status: FULL CODE waiting to hear back from daughter, will FU with her in the morning. patient reports she has advance directives just need to confirm details. Review Family/Social History and ROS: Social History: Smoking Status: never smoker (1) Alcohol Use: denies(1) Drug Use: denies (1) Drug 2 Use: denies (1) Allergies: No Known Allergies: Objective: Objective Information: T PRBPSpO2 Value36.52517074/6693% Date/Time02/08 13: 13: 5: 13: 13:45 Range(36C [...] DM, HTN, chronic venous stasis presenting to [facility] from [facility] for right heel wound, leg [...] do not hesitate to contact us via [employer] (Kimberley Carr during weekdays work hours and Km Rodriguez for nights & weekends) Plan of Care Reviewed With: Plan of Care Reviewed With: patient Consult Status: Consult Order ID: [id number] Electronic Signatures: Kimberley Carr ([employer]) (Signed 08-Feb-2021 18:51) Authored: Service, History of Present Illness, Review Family/Social History and ROS, Allergies, Objective, Assessment/Recommendations , Note Completion Last Updated: 08-Feb-2021 18:51 by Kimberley Carr ([employer]) References: 1. Data Referenced From Consult-Vascular Surgery 07-Feb-2021 21:16 Normal [facility] Daily Progress Note-Cardiova scular Medicineon 02-08-2021 Daily Progress Note-Cardiovascular Medicine Service: Cardiovascular Medicine Subjective Data: SALAZAR COYLE is a 70 year old Female who is Hospital Day # 3. Denies having any chest pain. No acute issues overnight. Objective Data: Objective Information: T PRBPSpO2 Value36.84874622/6693% Date/Time02/08 13: 13: 5: 13: 13:45 Range(36C [...] for aggre (more content not included)... Normal [facility] Daily Progress Note-Infectio us Diseaseon 02-08-2021 Daily Progress Note-Infectious Disease Service: Infectious Disease Subjective Data: SALAZAR COYLE is a 70 year old Female who is Hospital Day # 3. Objective Data: Objective Information: T PRBPSpO2 Value36.19165494/6693% Date/Time02/08 13: 13: 5: 13: 13:45 Range(36C [...] She was admitted 02/02 - 02/06/21 to [facility] from [facility] for right foot osteomyelitis which was treated [...] She was unable to tolerate MONICA/TBI at [facility]. She was recommended transfer to a tertiary [...] her right heel Zosyn day 8 of 42, s/p PICC line Patient will need to [...] the note. I personally evaluated the patient [id number] Electronic Signatures: Loli Kingston) (Signed 09-Feb-2021 08:38) Authored: Note Completion Co-Signer: Service, Subjective Data, Objective Data, Assessment and Plan, Note Completion Merle Hill (Resident)) (Signed 08-Feb-2021 15:54) Authored: Service, Subjective Data, Objective Data, Assessment and Plan, Note Completion Last Updated: 09-Feb-2021 08:38 by Loli Kingston) Normal [facility] Daily Progress Note-Medicine on 02-08-2021 Daily [...] care. Objective Data: Objective Information: T PRBPSpO2 [id number]/6592% Date/Time02/08 5: 5: 5: 5: 5:30 Range(36C [...] pt was admitted 02/02 - 02/06/21 to [facility] from [facility] for right foot infection - bedside debridement [...] vascular workup (more content not included)... Normal [facility] Daily Progress Note-Podiatry on 02-08-2021 Daily Progress Note-Podiatry Service: Podiatry Subjective Data: SALAZAR COYLE is a 70 year old Female who is Hospital Day # 3. Overnight Events: Patient had an uneventful night. Additional Information: Not tolerating dressing changes very well. Pain with the right foot especially the heel. Objective Data: Objective Information: T PRBPSpO2 [id number]/6592% Date/Time02/08 5: 5: 5: 5: 5:30 Range(36C - 37.5C ) (68 - 70 ) (20 - 20 ) (140 - 147 )/ (64 - 67 ) (92% - 92% ) Highest temp of 37.5 C was recorded at 02/07 13:16 Pain reported at 02/07 21:40: 0 = None T PRBPSpO2 [id number]/6592% Date/Time02/08 5: 5: 5: 5: 5:30 Range(36C [...] reviewed these laboratory results: Glucose_POCT Trending View [id number] 07:20:00 07-Feb-2021 21:51:00 07-Feb-2021 16:25:00 07-Feb-2021 11:21:00 Glucose-GEKP915 H 288 H 295 H 259 H [...] Plan: C (more content not included)... Normal [facility] Discharge [id number] 021 Discharge Profile2 Discharge Orders: Anticipated Discharge Date: Anticipated Discharge [id number] Problem List: Additional Dx: Cellulitis of left lower extremity: Catalog Name: Cellulitis of left lower limb Cellulitis of right lower extremity: Catalog Name: Cellulitis of right lower limb Osteomyelitis: Catalog Name: Osteomyelitis, unspecified Medical History: Chronic pain: Catalog Name: Other chronic pain DNAR: DNAR Status: none Activity: activity as tolerated. Diet: Dietdiabetic/carbohydrate counted Diabetic/Carbohydrate Jbcunpy24bxid/Carb meal, 30gram/Carb snack (1600-1800cals) Labs 1: Lab Test(s)CBC with dif, Comprehensive Metabolic Panel, CRP, ESR Date To Be Drawnevery weekly Call Results Todr. [place] Fax Results [phone] Wound Care 1: Other InstructionsBLE: daily cleanse [...] MonitoringACHS Additional Instructions Thank you for choosing [facility] - it has been a pleasure taking [...] about the care you received please call [facility] at . Additional Instructions *You have been [...] She was admitted 02/02 - 02/06/21 to [facility] from [facility] for right foot osteomyelitis which was treated [...] She was unable to tolerate MONICA/TBI at [facility]. She was recommended transfer to a tertiary care center where more services are available for further management. She was admitted to [facility] om 02/06/21. Case has been discussed with vascular surgery as well as cardiology and medicine at [facility]. Pt has longstanding lower extremity problem. Given patient's multiple comorbidities will recommend conservetive care by way of local wound care as she tolerates and antibiotic therapy. Off load the heel. Unable to do stress test due to body habitus. High risk for an extensive vascular surgery Conservative care. Based on the right foot wound culture, that (more content not included)... Normal [facility] GLUCOSE-POCTon 02-08-2021 Glucose [Mass/Vol] 235 mg/dL High 74 - 99 [facility] Comment on above: Performed By: #### G LAYNE #### [facility] [address] [place] [address] Glucose [Mass/Vol] 229 mg/dL High 74 - 99 [facility] Comment on above: Performed By: #### G LAYNE ####[facility] [place] [address] Glucose [Mass/Vol] 195 mg/dL High 74 - 99 [facility] Comment on above: Performed By: #### Alvaro DANG #### [facility] [address] [place] [address] Glucose [Mass/Vol] 165 mg/dL High 74 - 99 [facility] Comment on above: Performed By: #### G LAYNE ####[facility] [place] [address] MISCELLANEOUS CULT./SM.BACT. on 02-08-2021 MISCELLANEOUS CULT./SM.BACT. PATIENT: SALAZAR COYEL LOCATION: [address]#: [id number] : 46 AGE: SEX: F ORDERED BY: [...] DOSE DEPENDENT NS=NONSUSCEPTIBLE X=REPORTED IN ERROR Normal [facility] Comment on above: Performed By: #### M [facility] ####[id number] [place] [place] [address] Order Reconciliationon 02-08 Order Reconciliation Page 1 Discharge Reconciliation Document Reconciliation Type: Discharge requested on behalf of Cristiane Poon (Advanced Practice Nurse) done by Cristiane Poon ([facility]) Discharge - Partial Reconciliation: 08-Feb-2021 14:13 by: Merle Hill ( (Resident)) Discharge - Reconciliation: 10-Feb-2021 14:03 by: Cristiane Poon ([facility]) Discharge - Reset to Incomplete: 10-Feb-2021 14:08 by: Cristiane Poon ([facility]) Discharge - Reconciliation: 10-Feb-2021 14:10 by: Cristiane Poon ([facility] PROFESSIONAL SERVICES) Discharge - Reset to Incomplete: 10-Feb-2021 14:13 by: Cristiane Poon ([facility]) Discharge - Reconciliation: 10-Feb-2021 14:14 by: Cristiane Poon ([facility]) Discharge - Reset to Incomplete: 10-Feb-2021 14:16 by: Cristiane Poon ([facility]) Discharge - Reconciliation: 10-Feb-2021 14:18 by: Cristiane Poon ([facility] PROFESSIONAL SERVICES) Discharge - Reset to Incomplete: 10-Feb-2021 14:24 by: Cristiane Poon ([facility]) Discharge - Reconciliation: 10-Feb-2021 14:27 by: Cristiane Poon ([employer]) Discharge - Reset to Incomplete: 10-Feb-2021 14:28 by: Cristiane Poon ([facility]) Discharge - Reconciliation: 10-Feb-2021 14:38 by: Cristiane Poon ([facility]) Home Medications EnteredHOME MEDICATIONS AT DISCHARGE [...] day 1 (more content not included)... Normal [facility] BASIC METABOLIC PANELon 11-0 Anion gap [Moles/Vol] 12 mmol/L Normal 10 - 20 [facility] Comment on above: Performed By: #### B MP #### [address] [address] Calcium [Mass/Vol] 8.1 mg/dL Low 8.6 - 10.3 [facility] Comment on above: Performed By: #### B MP #### [address] [address] Chloride [Moles/Vol] 107 mmol/L Normal 98 - 107 [facility] Comment on above: Performed By: #### B MP #### [address] [address] Creatinine [Mass/Vol] 0.80 mg/dL Normal 0.50 - 1.05 [facility] Comment on above: Performed By: #### B MP #### [address] [address] GFR- AM. >60 Normal >60 [facility] Comment on above: Result Comment: CALC ULATIONS OF ESTIMATED GFR ARE PERFORMED USING THE MDRD STUDY EQUATION FOR THE IDMS-TRACEABLE CREATININE METHODS. CLIN CHEM 2007;53:766-72 Performed By: #### B MP #### [address] [address] GFR-NON AM. >60 Normal >60 [facility] Comment on above: Performed By: #### B MP #### [address] [address] Glucose [Mass/Vol] 209 mg/dL High 74 - 99 [facility] Comment on above: Performed By: #### B MP #### [address] [address] HCO3 (Bld) [Moles/Vol] 28 mmol/L Normal 21 - 32 [facility] Comment on above: Performed By: #### B MP #### [address] [address] Potassium [Moles/Vol] 4.2 mmol/L Normal 3.5 - 5.3 [facility] Comment on above: Performed By: #### B MP #### [facility] [address] [facility] [place] [address] Sodium [Moles/Vol] 143 mmol/L Normal 136 - 145 [facility] Comment on above: Performed By: #### B MP #### [address] [place] [address] Urea nitrogen [Mass/Vol] 17 mg/dL Normal 6 - 23 [facility] Comment on above: Performed By: #### B MP #### [address] [place] [address] C-REACTIVE PROTEINon 021 C-REACTIVE PROTEIN 5.35 mg/dL Abnormal [facility] Comment on above: Result Comment: REF VALUE < 1.00 Performed By: #### C RP #### [address] [place] [address] CBCon 02-07-2021 Erythrocyte distribution width (RBC) [Ratio] 15.3 % High 11.5 - 14.5 [facility] Comment on above: Performed By: #### C BC ####[facility] [place] [address], [place] [address] Hematocrit (Bld) [Volume fraction] 35.1 % Low 36.0 - 46.0 [facility] Comment on above: Performed By: #### C BC ####[address] [place] [address] Hemoglobin (Bld) [Mass/Vol] 10.2 g/dL Low 12.0 - 16.0 [facility] Comment on above: Performed By: #### C BC ####[facility] [place], [place] [address] [address] MCHC (RBC) [Mass/Vol] 29.1 g/dL Low 32.0 - 36.0 [facility] Comment on above: Performed By: #### C BC ####[address] [place] [address] MCV (RBC) [Entitic vol] 104 fL High 80 - 100 [facility] Comment on above: Performed By: #### C BC ####[facility] [place] [address] NUCLEATED RBC 0.0 /100 WBC Normal 0.0 - 0.0 [facility] Comment on above: Performed By: #### C BC ####[facility] [place] [address] Platelets (Bld) [#/Vol] 242 10*3/uL Normal 150 - 450 [facility] Comment on above: Performed By: #### C BC ####[address] [address] RBC 3.39 x10E12/L Low 4.00 - 5.20 [facility] Comment on above: Performed By: #### C BC ####[address] [address] WBC (Bld) [#/Vol] 5.4 10*3/uL Normal 4.4 - 11.3 [facility] Comment on above: Performed By: #### C BC ####[facility] [place] [address] Consult-Cardiologyon 021 Consult-Cardiology Service: Service: Cardiology Consult: [...] O2, pAF. Presents as a transfer from [facility] for nonhealing ulcer of the right lower [...] Known Allergies: Objective: Objective Information: T PRBPSpO2 Value37.61066375/6792% Date/Time02/07 13: 13: 13: 13: 13:16 Range(36.4C - 37.8C ) (55 - 79 ) (20 - 20 ) (142 - 147 )/ (64 - 67 ) (92% - 93% ) Highest temp of 37.8 C was recorded at 02/06 21:00 Physical Exam by System: Constitutional: NAD; [...] Diffuse osteo (more content not included)... Normal [facility] Consult-Infectious Diseaseon 02-07-2021 Consult-Infectious Disease Service: [...] She was admitted 02/02 - 02/06/21 to [facility] from [facility] for right foot osteomyelitis which was treated [...] She was unable to tolerate MONICA/TBI at [facility]. She was recommended transfer to a tertiary [...] her right heel Zosyn day 7 of 42, will order PICC line Patient will need to follow-up in 3 weeks in wound clinic Surgical recommendations per podiatry, however patient would like to try antibiotics first. Consult Status: Consult Order ID: [id number] Attestation: Note Completion: I am a: Resident/Fellow [...] the note. I personally evaluated the patient [id number] Electronic Signatures: Loli Kingston) (Signed 08-Feb-2021 08:19) Authored: Note Completion Co-Signer: Service, History of Present Illness, Review Family/Social History and ROS, Allergies, Assessment/Recommendations , Note Completion Merle Hill ( (Resident)) (Signed 07-Feb-2021 13:14) Authored: Service, History of Present Illness, Review Family/Social History and ROS, Allergies, Assessment/Recommendations , Note Completion Last Updated: 08-Feb-2021 08:19 by Loli Kingston () References: 1. Data Referenced From Consult-Podiatry 07-Feb-2021 11:17 Normal [facility] Consult-Podiatryon Consult-Podiatry Service: Service: Podiatry Consult: Consult requested by (Attending Name): Bashir Lemon Reason: right foot osteomyelitis History of Present Illness: HPI: SALAZAR COYLE is a 70 year old Female transferred here for [facility] for further management of bilateral cellulitis and [...] as noted above. Her HPI from both [facility] and [facility] have been reviewed. Review Family/Social History and ROS: Review Family/Social History and ROS: CAD: yes Alcohol Use: denies Drug Use: denies Social History: Smoking Status: never smoker (1) Alcohol Use: denies(1) Drug Use: denies (1) Drug 2 Use: denies (1) Allergies: No Known Allergies: Objective: Objective Information: T PRBPSpO2 Value36.45518596/6492% Date/Time02/07 6: 6: 6: 6: 6:51 Range(36.4C [...] 6 Hours 20. Vancomycin - DISCONTINUED - RPh to Dose: 1 each As Specified Variable [...] laboratory results: Basic Metabolic Panel Trending View Hdtzis06-[id number] 08:31:00 06-Feb-2021 05:07:00 Glucose, Ikqef421 H 189 H NA143 142 K4.2 3.9 CL107 107 Bicarbonate, Serum28 30 Anion Gap, Serum12 9 L BUN17 18 CREAT0.80 0.70 GFR-Non >60 >60 GFR->60 >60 Calcium, Serum8.1 L 7.9 L Complete Blood Count Trending View Tiidzs51-Qri-4336 08:31:00 06-Feb-2021 05:07:00 White Blood Cell Count5.4 4.6 Nucleated Erythrocyte Count0.0 Red Blood Cell Count3.39 L 3.23 L HGB10.2 L 9.6 L HCT35.1 L 30.5 L PCW392 H 95 MCHC29.1 L 31.3 L DSO867 247 RDW-CV15.3 H 16.0 H Sedimentation Rate, Erythrocyte Trending View Qevcif83-Qjv-8800 08:31:00 02-Feb-2021 18:46:00 Sedimentation Rate, Sgckvezpjzq47 H 79 H C Reactive Protein, Serum Trending View Cspjqc40-Drd-1041 08:31:00 02-Feb-2021 18:45:00 C Reactive Protein, Serum5.35 A 16.35 A Glucose_POCT Trending View Dgarnk58-[id number] 07:21:00 06-Feb-2021 19:49:00 06-Feb-2021 16:29:00 Glucose-YZSU184 H 272 H 269 H Culture, Blood 02-Feb-2021 18:45:00 ResultValue Culture, Blood No Growth at 1 daysNo Growth at (more content not included)... Normal [facility] Consult-Podiatry This report has been cancelled. Normal [facility] Consult-Vascular Surgeryon 04-09-2020 Consult-Vascular Surgery Service: Service: Vascular Surgery Consult: Consult requested by (Attending Name): Bashir Lemon Reason: right foot osteomyelitis History of Present Illness: HPI: SALAZAR COYLE is a 70 year old Female transferred from [facility] for right foot osteomyelitis. She also has lymphedema with chronic venous stasis skin changes of bilateral legs, right hip and knee osteoporosis, morbidly obese, bedridden, and chronic hypoxemic respiratory failure. She had bedside debridement by podiatry at [facility]. She has refused multiple imaging studies. She was unable to tolerate MONICA/PVR study at [facility] due to pain. She has been transferred to [facility] for further management. PMH: Morbid obesity HFpEF [...] Known Allergies: Objective: Objective Information: T PRBPSpO2 Value37.00615687/6792% Date/Time02/07 13: 13: 13: 13: 13:16 Range(36.4C [...] reviewed these laboratory results: Glucose_POCT Trending View Yjsjqo71-Nkt-1414 16:25:00 07-Feb-2021 11:21:00 07-Feb-2021 07:21:00 Glucose-BXTE449 H 259 H 183 H Basic Metabolic Panel 07-Feb-2021 08:31:00 ResultValue Glucose, Serum 209 H NA 143 K 4.2 CL 107 Bicarbonate, Serum 28 Anion Gap, Serum 12 BUN 17 CREAT 0.80 GFR-Non >60 GFR- >60 Calcium, Serum 8.1 L Complete Blood Count 07-Feb-2021 08:31:00 ResultValue White Blood Cell Count 5.4 Nucleated Erythrocyte (more content not included)... Normal [facility] Daily Progress Note-Medicine on 02-07-2021 Daily [...] over. Objective Data: Objective Information: T PRBPSpO2 Value36.71332917/6492% Date/Time02/07 6: 6: 6: 6: 6:51 Range(36.4C [...] pt was admitted 02/02 - 02/06/21 to [facility] from (more content not included)... Normal [facility] GLUCOSE-POCTon 02-07-2021 Glucose [Mass/Vol] 288 mg/dL High 74 - 99 [facility] Comment on above: Performed By: #### B MP #### [facility] [address] [place] [address] Glucose [Mass/Vol] 295 mg/dL High 74 - 99 [facility] Comment on above: Result Comment: RN/L PN NOTIFIED Performed By: #### B MP #### [address] [place] [place] [address] Glucose [Mass/Vol] 259 mg/dL High 74 - 99 [facility] Comment on above: Performed By: #### B MP #### [facility] [address] [facility] [place] [address] Glucose [Mass/Vol] 183 mg/dL High 74 - 99 [facility] Comment on above: Performed By: #### B MP #### [facility] [address] [facility] [place] [address] SEDIMENTATION RATE, ERYTHROC YTEon 02-07-2021 SEDIMENTATION RATE, ERYTHROCYTE 68 mm/h High 0 - 30 [facility] Comment on above: Performed By: #### B MP #### [facility] [address] [facility] [place] [address] Admission Risk Screen - Adul ton 02-06-2021 [...] AlertFor Ebola-like Symptoms: Isolate Patient and Notify Provider/Quarry Supervisor For Contact: Notify Provider/Quarry Supervisor Advance Directive: Advance Directive/DNRno Advance Directive Information [...] Learning Preferencesverbal instruction Cultural Considerationsnone Developmental Considerationsnone Samaritan Considerationsnone Learning Assessment (Other Learner): Other learner availableno Depression Screen: During the past month, have you often been bothered by feeling down, depressed or hopelessno During the past month, have you often had little interest or pleasure in doing thingsno Have you had any thoughts of harming anyone elseunable to assess Axtell Suicide: Risk Screen Not Applicable/Able to Answerable to be screened In the Past Month: Have you wished you were or could go to sleep and not wake upno In the Past Month: Have you had any actual thoughts of killing yourselfno Lifetime: Have you ever done, started to do, or prepared to do anything to end your lifeno Axtell Suicide Risknegative Adult Nutrition Screen: Have you [...] Spiritual Screen: Are there any cultural, spiritual, amish practices/values/needs that are important fo (more content not included)... Normal [facility] BASIC METABOLIC PANELon 11-0 Anion gap [Moles/Vol] 9 mmol/L Low 10 - 20 [facility] Comment on above: Performed By: #### B MP #### [address] [address] Calcium [Mass/Vol] 7.9 mg/dL Low 8.6 - 10.3 [facility] Comment on above: Performed By: #### B MP #### [address] [address] Chloride [Moles/Vol] 107 mmol/L Normal 98 - 107 [facility] Comment on above: Performed By: #### B MP #### [address] [address] Creatinine [Mass/Vol] 0.70 mg/dL Normal 0.50 - 1.05 [facility] Comment on above: Performed By: #### B MP #### [address] [address] GFR- AM. >60 Normal >60 [facility] Comment on above: Result Comment: CALC ULATIONS OF ESTIMATED GFR ARE PERFORMED USING THE MDRD STUDY EQUATION FOR THE IDMS-TRACEABLE CREATININE METHODS. CLIN CHEM 2007;53:766-72 Performed By: #### B MP #### [address] [address] GFR-NON AM. >60 Normal >60 [facility] Comment on above: Performed By: #### B MP #### [address] [address] Glucose [Mass/Vol] 189 mg/dL High 74 - 99 [facility] Comment on above: Performed By: #### B MP #### [address] [address] HCO3 (Bld) [Moles/Vol] 30 mmol/L Normal 21 - 32 [facility] Comment on above: Performed By: #### B MP #### [address] [address] Potassium [Moles/Vol] 3.9 mmol/L Normal 3.5 - 5.3 [facility] Comment on above: Performed By: #### B MP #### [address] [address] Sodium [Moles/Vol] 142 mmol/L Normal 136 - 145 [facility] Comment on above: Performed By: #### B MP #### [address] [address] Urea nitrogen [Mass/Vol] 18 mg/dL Normal 6 - 23 [facility] Comment on above: Performed By: #### B MP #### [address] [address] CBCon 02-06-2021 Erythrocyte distribution width (RBC) [Ratio] 16.0 % High 11.5 - 14.5 [facility] Comment on above: Performed By: #### B MP #### [address] [address] Hematocrit (Bld) [Volume fraction] 30.5 % Low 36.0 - 46.0 [facility] Comment on above: Performed By: #### B MP #### [address] [address] Hemoglobin (Bld) [Mass/Vol] 9.6 g/dL Low 12.0 - 16.0 [facility] Comment on above: Performed By: #### B MP #### [address] [address] MCHC (RBC) [Mass/Vol] 31.3 g/dL Low 32.0 - 36.0 [facility] Comment on above: Performed By: #### B MP #### [address] [address] MCV (RBC) [Entitic vol] 95 fL Normal 80 - 100 [facility] Comment on above: Performed By: #### B MP #### [address] [address] Platelets (Bld) [#/Vol] 247 10*3/uL Normal 150 - 450 [facility] Comment on above: Performed By: #### B MP #### [address] [address] RBC 3.23 x10E12/L Low 4.00 - 5.20 [facility] Comment on above: Performed By: #### B MP #### [address] [address] WBC (Bld) [#/Vol] 4.6 10*3/uL Normal 4.4 - 11.3 [facility] Comment on above: Performed By: #### B MP #### [address] [address] Clinical Event Note-Vancomyc inon 02-06-2021 Clinical Event Note-Vancomycin Clinical Event: Clinical Event Note: TopicVancomycin Details Random level ~ 14 hr resulted 19.2. At goal Concern for accumulation and therefore will decrease dose to Vanco 1g q12. Level prior to next 4th dose due: 02/08 @ 0500 70 yof with Osteo. Goal 15-20. Wt: 193.7kg SCr 0.70 Pt was on Vanco 1.25g q12 @ [facility]. Last level was yesterday and resulted 23.2. Last dose given was today @ 0100. Will order a random level now and see how well pt is clearing drug. Electronic Signatures: Italia Stevens (PH) (Signed 06-Feb-2021 16:41) Authored: Clinical Event Note Last Updated: 06-Feb-2021 16:41 by Italia Stevens (PH) Normal [facility] Daily Progress Note-General Internal Medicineon 02-06-2021 Daily Progress Note-General Internal Medicine Consult Type: subsequent visit/care Service: General Internal Medicine Subjective Data: SALAZAR COYLE is a 70 year old Female who is Hospital Day # 5. Overnight Events: Patient had an uneventful night. Objective Data: Objective Information: T PRBPSpO2 Value36.77164419/7692% Date/Time02/06 0:00104/08 0:00104/08 0:0011/7 0: 0:00 Range(36.5C - 37C ) (69 - [...] Code Status: (more content not included)... Normal [facility] Discharge Planning Ocmp3dm 04-08-2020 Discharge Planning Note2 Discharge Planning: Discharge Barriersnone Planned Dispositionskilled/rehab/e xtended [facility] Transportation Needed from [facility] [place] of Choice Explainedyes preference Anticipated Discharge [id number] Discharge Planning 02/07/21 1247 PCN: Notified by TCC Keo Price that patient is from [facility] in [place] and is not sure if she wants to return. Provided group home list to patient, spouse and daughter from [facility] directory that includes facilities that are within [facility], as well as meeting patients medical needs, and are in-network for patients insurance; while also in discharge geographic area patient prefers, and identifies each facilities [facility] star rating. Facility preference is [facility] as patient has been their previously. Referral will be submitted for review. TIGRE Francis, Addendum 1722: Patient updated on patients acceptance at [facility]. This is facility of preference. Patient will need precert. [facility] to start precert. TIGRE Francis, 02/07/21 1448 TRANSITIONAL BODY TECHNICIAN/PAINTER Met with patient at bedside, introduced self and explained role. Patient came from [facility] but does not want to return. Confirmed insurance and RX coverage. Patient requesting list of facilities in [facility]. PCN updated. See note above. Vern Price RN, [facility] 02/08/2021 1500 CARE COORDINATION - Patient is not medically ready for discharge. Patient/family is pending palliative care discussions, no surgical intervention. If patient prefers palliative/hospice approach she would be appropriate for [facility] near home. If not, preference would be for patient to stay in this area to follow up at [facility] at discharge. Preference list provided to patient for [address] Patient's preferences are [facility], [facility], [facility], [facility], [facility] in no order of preference. Patient Quality Rep July notified. Chandni Barnett RN (Transitional Divorce Lawyer) Doc Halo/[phone] 02/09/21 1341 TRANSITIONAL BODY TECHNICIAN/PAINTER Per note from [facility], they would be willing to transfer patient to [facility]. Awaiting precert. Patient had PICC line placed for 6 weeks ivab. Vern Price RN, [facility] 02/09/21 1330 PCN: Received response from [facility] they will transport to the [facility] [place] or patient has the option to have Dr Dietrich wound care surgeon & team follow her at the facility. Met with patient and reviewed response from [facility]. Patient wants to go to [facility] and follow with their wound are team. [facility] Keo Price updated. Awaiting precert with [facility]. TIGRE Francis, 02/10/21 0952 PCN: [facility] has precert. TIGRE Francis, Addendum 1410: Notified patient at bedside 7 daughter by phone of scheduled discharge at 1630 going to [facility]. TIGRE Francis, 02/10/21 1448 CNC: Updates and final orders sent to [facility], 7000 in [place], sheepskin pickler time for 16:30. Report number [id number]. Ana Tuttle Care Navigation Specialist Assessment: Discharge Planning Assessment [id number] Lives Withspouse(1) Living Arrangementsnursing home(1) Stated Reason for Admissionright leg pain(1) Arrived Frombacute/residential acute care (1) Resource/Environmental Concernsnone(1) Anticipated Transition Toinpatient rehabilitation facility(1) [facility] Discharge Documentation: Discharge/Transfer Date/[id number]-Bry-7579 17:05 Discharged Accompanied Bytransport Discharge Modestretcher Transportation Methodtransportation service Belongings Commentwith [facility] Electronic Signatures: Nany Price (DROSOPHERE OPERATOR) (Signed 10-Feb-2021 13:53) Authored: Discharge Planning Ying [...] Profile - Adult v2" 06-Feb-2021 16:11 Normal [facility] GLUCOSE-POCTon 02-06-2021 Glucose [Mass/Vol] 272 mg/dL High 74 - 99 [facility] Comment on above: Result Comment: RN/L PN NOTIFIED Performed By: #### G LAYNE ####[facility] [place] [address] Glucose [Mass/Vol] 269 mg/dL High 74 - 99 [facility] Comment on above: Performed By: #### B MP #### [facility] [address] [place] [address] Glucose [Mass/Vol] 262 mg/dL High 74 - 99 [facility] Comment on above: Performed By: #### G LAYNE ####[facility] [place] [address] Glucose [Mass/Vol] 196 mg/dL High 74 - 99 [facility] Comment on above: Performed By: #### G LAYNE #### [facility] [address] [place] [address] MAGNESIUMon 02-06-2021 Magnesium [Mass/Vol] 2.15 mg/dL Normal 1.60 - 2.40 [facility] Comment on above: Performed By: #### G LAYNE #### [facility] [address] [place] [address] Order Reconciliationon 02-06 Order Reconciliation Page 1 Admission Reconciliation Document Reconciliation Type: Admission requested on behalf of Nelly Saleh (Advanced Practice Nurse) done by Nelly Saleh (CANOE INSPECTOR FINAL-DIRECTOR PROFESSIONAL SERVICES) Admission - Reconciliation: 06-Feb-2021 13:06 by: Nelly Saleh (CANOE INSPECTOR FINAL-DIRECTOR PROFESSIONAL SERVICES) Home MedicationsEnteredLast Dose TakenReconciled with current Order Reconciliation Comment/ Additional Information ascorbic acid 500 mg oral tablet 1 tab(s) orally once a [id number] Ascorbic Acid Tablet (VITAMIN C)DOSE = 500 [...] tablet 2 tab(s) orally 3 times a urz74-[id number]-4776 Baclofen Tablet (LIORESAL)DOSE = 20 mg Oral 3 Times a Daybaclofen 10 mg oral tablet provisionally auto reconciled with the existing inpatient order Baclofen Bumex 0.5 mg oral tablet 1 tab(s) orally 2 times a flv48-Dtg-7782 Bumetanide Tablet (BUMEX)DOSE = 0.5 mg Oral [...] tablet 1 tab(s) orally 2 times a [id number]-Sys-3659 Apixaban Tablet (ELIQUIS)DOSE = 5 mg Oral Every 12 HoursEliquis 5 mg oral tablet provisionally auto reconciled with the existing inpatient order Apixaban gabapentin 300 mg oral capsule 1 cap(s) orally 2 times a nro09-Tgy-6636 Gabapentin Capsule (NEURONTIN)DOSE = 300 mg Oral [...] units in AM and 35 units in QN51-Nha-5843 Insulin Glargine (Lantus) Injectable DOSE = 55 [...] oral tablet 1 tab(s) orally once a epn20-Xhd-2494 Atorvastatin Tablet (LIPITOR)DOSE = 20 mg Oral DailyLipitor 20 mg oral tablet provisionally auto reconciled with the existing inpatient order Atorvastatin magnesium oxide 400 mg (241.3 mg elemental magnesium) oral tablet 1 tab(s) orally once a pvl59-Cxr-9860 Magnesium Oxide Tablet (Mag-Ox)DOSE = 400 mg Oral Dailymagnesium oxide 400 mg (241.3 mg elemental magnesium) oral tablet provisionally auto reconciled with the existing inpatient order Magnesium Oxide metFORMIN 1000 mg oral tablet 1 tab(s) orally 2 times a oym66-Nxy-9249 Reviewed and Held Multi Vitamin+ 1 tab(s) orally once a ssu88-Riu-4136 Multivitamin with Minerals TabletDOSE = 1 tablet(s) Oral OnceMulti Vitamin+ provisionally auto reconciled with the existing inpatient order Multivitamin with Minerals nitrofurantoin macrocrystals 50 mg oral capsule 1 cap(s) orally once a day (at bedtime)06-Feb-2021 Reviewed and Held oxyCODONE 5 mg oral tablet 1 tab(s) orally every 6 hours, As Needed pain 06-Feb-2021 oxyCODONE Extended Release Tabl (more content not included)... Normal [facility] Order Reconciliation Page 1 Discharge Reconciliation Document Reconciliation Type: Discharge requested on behalf of Seble Garcia (Advanced Practice Nurse) done by Seble Garcia (CANOE INSPECTOR FINAL-DIRECTOR PROFESSIONAL SERVICES) Discharge - Reconciliation: 06-Feb-2021 09:13 by: Seble Garcia (CANOE INSPECTOR FINAL-DIRECTOR PROFESSIONAL SERVICES) Home Medications EnteredHOME MEDICATIONS AT DISCHARGE DateReconciliation [...] release González (more content not included)... Normal [facility] Patient Profile - Adult v2on 02-06-2021 Patient Profile - Adult v2 Profile: Initial Info: How to be AddressedGail(1) Spoken Language PreferredEnglish (1) Source of Informationpatient Stated Reason for Admissionright leg pain Wants Family/Rep Notified of Admissionyes, primary contact Notify PCPnotify PCP Informed of Patient Visiting Rightsyes Limitations on Visitors/Phone Callsnone Temporary Family Living Arrangements (While Hospitalized)none needed [facility] Employment Statusdisabled(1) Current or Previous Servicenone(1) Patient Belongingsremains with patient Patient Belongings Remaining with Patientcell phone/electronics Medications Brought to Hospitalno History of MDROno General Health: Blood Avoidance/Restrictionsnone Previous Transfusion Reactionno Sleep Aids/Routinenone Weight in kg193.7 kilogram(s) Weight in qzh462 pound(s) Weight Methodactual (measured) Scale Typebed Height [...] Known Allergies: Active Electronic Signatures: Ying Franks (MATHEUS) (Signed 06-Feb-2021 16:17) Authored: Initial Info, General Health, RSP Based Care, Substance, Health Mgmt, Relationship/Environ, Additional Information Last Updated: 06-Feb-2021 16:17 by Ying Franks (MATHEUS) References: 1. Data Referenced From Patient Profile - Adult v2" 02-Feb-2021 23:35 2. Data Referenced From History and Physical 06-Feb-2021 12:46 Normal [facility] VANCOMYCINon 02-06-2021 VANCOMYCIN 19.2 ug/mL Normal [facility] Comment on above: Result Comment: .The rapeutic Ranges: Peak: All ages: 30.0-40.0 ug/mL . Trough: Age <18y: 5.0-10.0 ug/mL . Age >/= 18y: 5.0-20.0 ug/mL . Vancomycin trough concentrations drawn immediately prior to the next dose at steady-state are preferred for monitoring patients treated with vancomycin. Ref.: Am J Health-Syst Pharm 66: 83-98, 2009. Performed By: #### V ISABELU #### [facility] [address] [place] [address] VANCOMYCIN,TROUGHon 02-07-20 21 VANCOMYCIN,TROUGH Canceled Normal [facility] Comment on above: Order Comment: TEST VANCOMYCIN,TROUGH WAS CANCELLED, 02/06/2021 13:12 patient discharged. Performed By: #### B MP #### [address] [address] BASIC METABOLIC PANELon 11-0 Anion gap [Moles/Vol] 9 mmol/L Low 10 - 20 [facility] Comment on above: Performed By: #### B MP #### [address] [address] Calcium [Mass/Vol] 8.0 mg/dL Low 8.6 - 10.3 [facility] Comment on above: Performed By: #### B MP #### [address] [address] Chloride [Moles/Vol] 106 mmol/L Normal 98 - 107 [facility] Comment on above: Performed By: #### B MP #### [address] [address] Creatinine [Mass/Vol] 0.70 mg/dL Normal 0.50 - 1.05 [facility] Comment on above: Performed By: #### B MP #### [address] [address] GFR- AM. >60 Normal >60 [facility] Comment on above: Result Comment: CALC ULATIONS OF ESTIMATED GFR ARE PERFORMED USING THE MDRD STUDY EQUATION FOR THE IDMS-TRACEABLE CREATININE METHODS. CLIN CHEM 2007;53:766-72 Performed By: #### B MP #### [address] [address] GFR-NON AM. >60 Normal >60 [facility] Comment on above: Performed By: #### B MP #### [address] [address] Glucose [Mass/Vol] 179 mg/dL High 74 - 99 [facility] Comment on above: Performed By: #### B MP #### [address] [address] HCO3 (Bld) [Moles/Vol] 30 mmol/L Normal 21 - 32 [facility] Comment on above: Performed By: #### B MP #### [address] [address] Potassium [Moles/Vol] 3.7 mmol/L Normal 3.5 - 5.3 [facility] Comment on above: Performed By: #### B MP #### [address] [address] Sodium [Moles/Vol] 141 mmol/L Normal 136 - 145 [facility] Comment on above: Performed By: #### B MP #### [address] [address] Urea nitrogen [Mass/Vol] 17 mg/dL Normal 6 - 23 [facility] Comment on above: Performed By: #### B MP #### [address] [address] CBCon 02-05-2021 Erythrocyte distribution width (RBC) [Ratio] 16.2 % High 11.5 - 14.5 [facility] Comment on above: Performed By: #### B MP #### [address] [address] Hematocrit (Bld) [Volume fraction] 29.8 % Low 36.0 - 46.0 [facility] Comment on above: Performed By: #### B MP #### [address] [address] Hemoglobin (Bld) [Mass/Vol] 9.5 g/dL Low 12.0 - 16.0 [facility] Comment on above: Performed By: #### B MP #### [address] [address] MCHC (RBC) [Mass/Vol] 31.9 g/dL Low 32.0 - 36.0 [facility] Comment on above: Performed By: #### B MP #### [address] [address] MCV (RBC) [Entitic vol] 94 fL Normal 80 - 100 [facility] Comment on above: Performed By: #### B MP #### [address] [address] Platelets (Bld) [#/Vol] 238 10*3/uL Normal 150 - 450 [facility] Comment on above: Performed By: #### B MP #### [address] [address] RBC 3.15 x10E12/L Low 4.00 - 5.20 [facility] Comment on above: Performed By: #### B MP #### [address] [address] WBC (Bld) [#/Vol] 4.9 10*3/uL Normal 4.4 - 11.3 [facility] Comment on above: Performed By: #### B MP #### [address] [address] Daily Progress Note-General Internal Medicineon 02-05-2021 Daily Progress Note-General Internal Medicine Consult Type: subsequent visit/care Service: General Internal Medicine Subjective Data: SALAZAR COYLE is a 70 year old Female who is Hospital Day # 4. Overnight Events: Patient had an uneventful night. Objective Data: Objective Information: T PRBPSpO2 [id number]/5291% Date/Time02/04 22: 22: 22: 22: 22:00 Range(36C [...] 1 application(s) Topical Once 17. Vancomycin - RPh to Dose - IV [...] reviewed these laboratory results: Complete Blood Count 05-Feb-2021 05:09:00 ResultValue White Blood Cell Count 4.9 [...] diastolic congestive (more content not included)... Normal [facility] GLUCOSE-POCTon 02-05-2021 Glucose [Mass/Vol] 243 mg/dL High 74 - 99 [facility] Comment on above: Performed By: #### B MP #### [address] [address] Glucose [Mass/Vol] 240 mg/dL High 74 - 99 [facility] Comment on above: Performed By: #### G LAYNE #### [address] [address] Glucose [Mass/Vol] 224 mg/dL High 74 - 99 [facility] Comment on above: Performed By: #### B MP #### [address] [address] Glucose [Mass/Vol] 153 mg/dL High 74 - 99 [facility] Comment on above: Performed By: #### P HOS #### [address] [address] MAGNESIUMon 02-05-2021 Magnesium [Mass/Vol] 2.03 mg/dL Normal 1.60 - 2.40 [facility] Comment on above: Performed By: #### B MP #### [address] [address] VANCOMYCIN,TROUGHon 02-06-20 21 VANCOMYCIN,TROUGH 23.2 ug/mL Critically high 5.0 - 20.0 [facility] Comment on above: Order Comment: Donna Georges [...] 12:05 Performed By: #### B MP #### [address] [address] BASIC METABOLIC PANELon 11-0 Anion gap [Moles/Vol] 11 mmol/L Normal 10 - 20 [facility] Comment on above: Performed By: #### B MP #### [address] [address] Calcium [Mass/Vol] 8.3 mg/dL Low 8.6 - 10.3 [facility] Comment on above: Performed By: #### B MP #### [address] [address] Chloride [Moles/Vol] 106 mmol/L Normal 98 - 107 [facility] Comment on above: Performed By: #### B MP #### [address] [address] Creatinine [Mass/Vol] 0.65 mg/dL Normal 0.50 - 1.05 [facility] Comment on above: Performed By: #### B MP #### [address] [address] GFR- AM. >60 Normal >60 [facility] Comment on above: Result Comment: CALC ULATIONS OF ESTIMATED GFR ARE PERFORMED USING THE MDRD STUDY EQUATION FOR THE IDMS-TRACEABLE CREATININE METHODS. CLIN CHEM 2007;53:766-72 Performed By: #### B MP #### [address] [address] GFR-NON AM. >60 Normal >60 [facility] Comment on above: Performed By: #### B MP #### [address] [address] Glucose [Mass/Vol] 160 mg/dL High 74 - 99 [facility] Comment on above: Performed By: #### B MP #### [address] [address] HCO3 (Bld) [Moles/Vol] 30 mmol/L Normal 21 - 32 [facility] Comment on above: Performed By: #### B MP #### [address] [address] Potassium [Moles/Vol] 3.8 mmol/L Normal 3.5 - 5.3 [facility] Comment on above: Performed By: #### B MP #### [address] [address] Sodium [Moles/Vol] 143 mmol/L Normal 136 - 145 [facility] Comment on above: Performed By: #### B MP #### [address] [address] Urea nitrogen [Mass/Vol] 18 mg/dL Normal 6 - 23 [facility] Comment on above: Performed By: #### B MP #### [address] [address] CBCon 02-04-2021 Erythrocyte distribution width (RBC) [Ratio] 16.4 % High 11.5 - 14.5 [facility] Comment on above: Performed By: #### B MP #### [address] [address] Hematocrit (Bld) [Volume fraction] 30.6 % Low 36.0 - 46.0 [facility] Comment on above: Performed By: #### B MP #### [address] [address] Hemoglobin (Bld) [Mass/Vol] 9.8 g/dL Low 12.0 - 16.0 [facility] Comment on above: Performed By: #### B MP #### [address] [address] MCHC (RBC) [Mass/Vol] 32.0 g/dL Normal 32.0 - 36.0 [facility] Comment on above: Performed By: #### B MP #### [address] [address] MCV (RBC) [Entitic vol] 94 fL Normal 80 - 100 [facility] Comment on above: Performed By: #### B MP #### [address] [address] Platelets (Bld) [#/Vol] 232 10*3/uL Normal 150 - 450 [facility] Comment on above: Performed By: #### B MP #### [address] [address] RBC 3.24 x10E12/L Low 4.00 - 5.20 [facility] Comment on above: Performed By: #### B MP #### [place] [address] [place] [address] WBC (Bld) [#/Vol] 4.7 10*3/uL Normal 4.4 - 11.3 [facility] Comment on above: Performed By: #### B #### [address] [address] Clinical Event Note-Possibil ity of transferon 02-04-2021 [...] Updated: 04-Feb-2021 19:51 by Kermit Martínez () [facility] Consult-Podiatryon Consult-Podiatry Service: Service: Podiatry Consult: [...] Known Allergies: Objective: Objective Information: T PRBPSpO2 [id number]/7292% Date/Time02/04 15: 15: 15: 15: 15:12 Range(36.1C [...] [Drawn - (more content not included)... Normal [facility] Daily Progress Note-General Internal Medicineon 02-04-2021 Daily Progress Note-General Internal Medicine Consult Type: subsequent visit/care Service: General Internal Medicine Subjective Data: SALAZAR COYLE is a 70 year old Female who is Hospital Day # 3. Overnight Events: Patient had an uneventful night. Objective Data: Objective Information: T PRBPSpO2 [id number]/6192% Date/Time02/03 22: 22: 22: 22: 22:00 Range(36.2C [...] Piggyback Every 6 Hours 16. Vancomycin - [facility] to Dose - IV Piggy Back: [...] 2021 7 (more content not included)... Normal [facility] GLUCOSE-POCTon 02-04-2021 Glucose [Mass/Vol] 199 mg/dL High 74 - 99 [facility] Comment on above: Performed By: #### B MP #### [address] [address] Glucose [Mass/Vol] 191 mg/dL High 74 - 99 [facility] Comment on above: Performed By: #### B MP #### [address] [place] [address] Glucose [Mass/Vol] 170 mg/dL High 74 - 99 [facility] Comment on above: Performed By: #### B MP #### [address] [address] Glucose [Mass/Vol] 170 mg/dL High 74 - 99 [facility] Comment on above: Performed By: #### B MP #### [place] [id number] MAGNESIUMon 02-04-2021 Magnesium [Mass/Vol] 2.08 mg/dL Normal 1.60 - 2.40 [facility] Comment on above: Performed By: #### G LAYNE #### [place] [id number] MISCELLANEOUS CULT./SM.BACT. on 02-04-2021 MISCELLANEOUS CULT./SM.BACT. PATIENT: SALAZAR COYLE LOCATION: [address]#: [id number] : 46 AGE: SEX: F ORDERED BY: SANDRA MARTINEZ SOURCE: BIOPSY COLLECTED: 02/04/21 18:03 ANTIBIOTICS AT [place].: RECEIVED : 02/04/21 23:05 SITE: foot R E S U L T S GRAM STAIN FINAL 02/05/21 00:22 NO GRANULOCYTES SEEN. 3+ GRAM (-) COCCOBACILLI. MISCELLANEOUS CULT./SM.BACT. FINAL 02/06/21 14:07 4+ AEROBIC MIXED BACTERIA Normal [facility] Comment on above: Performed By: #### B MP #### [place] [id number] Nutrition Therapy-Assessment on 02-04-2021 Nutrition Therapy-Assessment Assessment Subjective/Objective: Note Type: Assessment Note Authored by: Registered Dietitian Checker Stocker Pager Number: Doc Halo Nutrition Note: The [...] paroxysmal atrial fibrillation Objective Information: T PRBPSpO2 Value36.88718775/7492% Date/Time02/04 7: 7: 7: 7: 7:23 Range(36.1C - 36.4C ) (76 - 78 ) (18 - 20 ) (149 - 162 )/ (61 - 74 ) (92% - 95% ) Pain reported at 02/04 9:16: 9 = Severe ---- Intake and Output ----- Mn/Dy/Year TimeIntakeOutputNet Feb 04, 2021 6:00 [id number] The Intake and Output Totals for the last 24 hours are: IntakeOutputNet [id number] Intake Output Urine 1400 mL Height/Weight: Height in cm: 170.1 centimeter(s) Weight (kg): 193.7 BMI (kg/m2): 66.945 square meter Weight history/ % weight change: Pt denies any recent weight changes. No recent weight history available for review. Pt with weight of 451.9lb August of 2019. Insignificant weight loss noted. Recent Lab Results: Results: I have reviewed these laboratory results: Glucose_POCT Trending View [id number] 19:27:00 03-Feb-2021 16:43:00 03-Feb-2021 11:07:00 03-Feb-2021 07:19:00 Glucose-HDVI379 H 154 H 226 H 182 H [...] (Lantus) Inje (more content not included)... Normal [facility] PT/INRon 02-04-2021 PT Coag (PPP) [Time] 14.0 s High 10.1 - 13.3 [facility] Comment on above: Performed By: #### B MP #### [place] [address] PT, INR 1.2 High 0.9 - 1.1 [facility] Comment on above: Performed By: #### B MP #### [place] [address] VANCOMYCIN,TROUGHon 02-05-20 21 VANCOMYCIN,TROUGH 22.1 ug/mL Critically high 5.0 - 20.0 [facility] Comment on above: Order Comment: Donna ROWE Donavan Marroquiners, 02/04/2021 08:28 Result Comment: Vanc omycin levels should be interpreted in conjunction with the dose, disease being treated, vancomycin JERRY, time of draw (trough concentrations should be obtained just before the next dose at steady-state), and other clinical information. Trough concentrations of 15-20 ug/mL are desired for severe infections. Ref.: Am J Health-Syst Pharm 66: 83-98, 2009. [place] mims Arleen Olvera, 02/04/2021 08:28 Performed By: #### G LAYNE #### [place] [address] Admission Risk Screen - Adul ton 02-03-2021 Admission Risk Screen - Adult Allergies: Allergies: No Known Allergies: Patient Verification: New W ID Band Applied in my Departmentno Type of ID Patient is WearingW wristband, but not applied here Patient Transferred from Other Facility ([facility], [facility],etc)no Patient Identity Verified Bypatient ID Band FULL [...] AlertFor Ebola-like Symptoms: Isolate Patient and Notify Provider/Quarry Supervisor For Contact: Notify Provider/Quarry Supervisor Advance Directive: Advance Directive/DNRyes (2) Advance Directive [...] Learning Preferencesverbal instruction Cultural Considerationsnone Developmental Considerationsnone [facility] Considerationsnone Learning Assessment (Other Learner): Other learner availableno Depression Screen: During the past month, have you often been bothered by feeling down, depressed or hopelessno During the past month, have you often had little interest or pleasure in doing thingsno Have you had any thoughts of harming anyone elseno (1) [place] Suicide: Risk Screen Not Applicable/Able to Answerable to be screened In the Past Month: Have you wished you were or could go to sleep and not wake upno(1) In the Past Month: Have you had any actual thoughts of killing yourself no(1) Lifetime: Have you ever done, started to do, or prepared to do anything to end your lifeno [place] Suicide Risknegative Adult Nutrition Screen: Have you [...] Spiritual Screen: Are there any cultural, spiritual, amish practices/values/needs that are important for us to knowno Would you like your Soil Technician/[employer] Planners notifiedno CAGE: Is this an injured patient at a Trauma Center (NOHEMI/Adams/Ashu/Quan/Cynthia Gonzalez/Gregory): no (2) Vaccinations: Vaccination - Influenza Vaccination Screen: Is it flu season (between and June 30)Yes Screening for identified contraindications to influenza vaccinationpatient already received vaccine this season Vaccination - Pneumonia Vaccination Screen: Patient has received a previous pneumonia vacci (more content not included)... Normal [facility] BASIC METABOLIC PANELon 11-0 Anion gap [Moles/Vol] 10 mmol/L Normal 10 - 20 [facility] Comment on above: Performed By: #### C BCDF #### [address] [address] Calcium [Mass/Vol] 8.2 mg/dL Low 8.6 - 10.3 [facility] [place] [facility] Comment on above: Performed By: #### C BCDF #### [address] [address] Chloride [Moles/Vol] 107 mmol/L Normal 98 - 107 [facility] Comment on above: Performed By: #### C BCDF #### [address] [address] Creatinine [Mass/Vol] 0.64 mg/dL Normal 0.50 - 1.05 [facility] Comment on above: Performed By: #### C BCDF #### [address] [address] GFR- AM. >60 Normal >60 [facility] Comment on above: Result Comment: CALC ULATIONS OF ESTIMATED GFR ARE PERFORMED USING THE MDRD STUDY EQUATION FOR THE IDMS-TRACEABLE CREATININE METHODS. CLIN CHEM 2007;53:766-72 Performed By: #### C BCDF #### [address] [address] GFR-NON AM. >60 Normal >60 [facility] Comment on above: Performed By: #### C BCDF #### [address] [address] Glucose [Mass/Vol] 172 mg/dL High 74 - 99 [facility] [place] [facility] Comment on above: Performed By: #### C BCDF #### [address] [address] HCO3 (Bld) [Moles/Vol] 29 mmol/L Normal 21 - 32 [facility] Comment on above: Performed By: #### C BCDF #### [address] [address] Potassium [Moles/Vol] 4.0 mmol/L Normal 3.5 - 5.3 [facility] Comment on above: Performed By: #### C BCDF #### [address] [address] Sodium [Moles/Vol] 142 mmol/L Normal 136 - 145 [facility] [place] [facility] Comment on above: Performed By: #### C BCDF #### [place] [id number] Urea nitrogen [Mass/Vol] 17 mg/dL Normal 6 - 23 [facility] Comment on above: Performed By: #### C BCDF #### [address] [address] ANION GAP Canceled [facility] Comment on above: Order Comment: TEST BASIC METABOLIC PANEL WAS CANCELLED, 02/03/2021 01:29 Performed By: #### B MP #### [address] [address] BICARBONATE Canceled [facility] Comment on above: Order Comment: TEST BASIC METABOLIC PANEL WAS CANCELLED, 02/03/2021 01:29 Performed By: #### B MP #### [address] [address] CALCIUM [facility] Comment on above: Order Comment: TEST BASIC METABOLIC PANEL WAS CANCELLED, 02/03/2021 01:29 Performed By: #### B MP #### [address] [address] CHLORIDE [facility]eled [facility] Comment on above: Order Comment: TEST BASIC METABOLIC PANEL WAS CANCELLED, 02/03/2021 01:29 Performed By: #### B MP #### [address] [address] CREATININE C[facility] Comment on above: Order Comment: TEST BASIC METABOLIC PANEL WAS CANCELLED, 02/03/2021 01:29 Performed By: #### B MP #### [address] [address] GFR- AM. [facility] Comment on above: Order Comment: TEST BASIC METABOLIC PANEL WAS CANCELLED, 02/03/2021 01:29 Result Comment: CALC ULATIONS OF ESTIMATED GFR ARE PERFORMED USING THE MDRD STUDY EQUATION FOR THE IDMS-TRACEABLE CREATININE METHODS. CLIN CHEM 2007;53:766-72 Performed By: #### B MP #### [place] [id number] GFR-NON AM. [facility] Comment on above: Order Comment: TEST BASIC METABOLIC PANEL WAS CANCELLED, 02/03/2021 01:29 Performed By: #### B MP #### [place] [id number] GLUCOSE [facility] Comment on above: Order Comment: TEST BASIC METABOLIC PANEL WAS CANCELLED, 02/03/2021 01:29 Performed By: #### B MP #### [place] [id number] POTASSIUM [facility]eled [facility] Comment on above: Order Comment: TEST BASIC METABOLIC PANEL WAS CANCELLED, 02/03/2021 01:29 Performed By: #### B MP #### [place] [id number] SODIUM [facility]eled [facility] Comment on above: Order Comment: TEST BASIC METABOLIC PANEL WAS CANCELLED, 02/03/2021 01:29 Performed By: #### B MP #### [place] [id number] UREA NITROGEN [facility] Comment on above: Order Comment: TEST BASIC METABOLIC PANEL WAS CANCELLED, 02/03/2021 01:29 Performed By: #### B MP #### [place] [id number] CBCon 02-03-2021 Erythrocyte distribution width (RBC) [Ratio] 16.3 % High 11.5 - 14.5 [facility] Comment on above: Performed By: #### C BCDF #### [address] [address] Hematocrit (Bld) [Volume fraction] 29.2 % Low 36.0 - 46.0 [facility] Comment on above: Performed By: #### C BCDF #### [address] [address] Hemoglobin (Bld) [Mass/Vol] 9.3 g/dL Low 12.0 - 16.0 [facility] Comment on above: Performed By: #### C BCDF #### [address] [address] MCHC (RBC) [Mass/Vol] 31.9 g/dL Low 32.0 - 36.0 [facility] Comment on above: Performed By: #### C BCDF #### [address] [address] MCV (RBC) [Entitic vol] 94 fL Normal 80 - 100 [facility] Comment on above: Performed By: #### C BCDF #### [address] [address] Platelets (Bld) [#/Vol] 219 10*3/uL Normal 150 - 450 [facility] Comment on above: Performed By: #### C BCDF #### [address] [address] RBC 3.09 x10E12/L Low 4.00 - 5.20 [facility] Comment on above: Performed By: #### C BCDF #### [address] [address] WBC (Bld) [#/Vol] 5.3 10*3/uL Normal 4.4 - 11.3 [facility] [place] [facility] Comment on above: Performed By: #### C BCDF #### [address] [address] CBC AND DIFFERENTIALon 02-03 % BASOPHIL Canceled Normal [facility] Comment on above: Order Comment: TEST CBC AND DIFFERENTIAL WAS CANCELLED, 02/03/2021 01:29 Performed By: #### C BCDF #### [address] [address] % EOSINOPHIL Canceled Normal [facility] Comment on above: Order Comment: TEST CBC AND DIFFERENTIAL WAS CANCELLED, 02/03/2021 01:29 Performed By: #### C BCDF #### [address] [address] % LYMPHOCYTE Canceled Normal [facility] Comment on above: Order Comment: TEST CBC AND DIFFERENTIAL WAS CANCELLED, 02/03/2021 01:29 Performed By: #### C BCDF #### [address] [address] % MONOCYTE Canceled Normal [facility] Comment on above: Order Comment: TEST CBC AND DIFFERENTIAL WAS CANCELLED, 02/03/2021 01:29 Performed By: #### C BCDF #### [address] [address] % NEUTROPHIL [facility]eled [facility] Comment on above: Order Comment: TEST CBC AND DIFFERENTIAL WAS CANCELLED, 02/03/2021 01:29 Performed By: #### C BCDF #### [address] [address] BASOPHIL Canceled [facility] Comment on above: Order Comment: TEST CBC AND DIFFERENTIAL WAS CANCELLED, 02/03/2021 01:29 Performed By: #### C BCDF #### [address] [address] DIFFERENTIAL [facility] Comment on above: Order Comment: TEST CBC AND DIFFERENTIAL WAS CANCELLED, 02/03/2021 01:29 Performed By: #### C BCDF #### [address] [address] EOSINOPHIL Canceled [facility] Comment on above: Order Comment: TEST CBC AND DIFFERENTIAL WAS CANCELLED, 02/03/2021 01:29 Performed By: #### C BCDF #### [address] [address] HCT Canceled [facility] Comment on above: Order Comment: TEST CBC AND DIFFERENTIAL WAS CANCELLED, 02/03/2021 01:29 Performed By: #### C BCDF #### [address] [address] HGB [facility] Comment on above: Order Comment: TEST CBC AND DIFFERENTIAL WAS CANCELLED, 02/03/2021 01:29 Performed By: #### C BCDF #### [place] [address] LYMPHOCYTE [facility] Comment on above: Order Comment: TEST CBC AND DIFFERENTIAL WAS CANCELLED, 02/03/2021 01:29 Performed By: #### C BCDF #### [place] [address] MCHC Canceled [facility] Comment on above: Order Comment: TEST CBC AND DIFFERENTIAL WAS CANCELLED, 02/03/2021 01:29 Performed By: #### C BCDF #### [place] [address] MCV [facility] Comment on above: Order Comment: TEST CBC AND DIFFERENTIAL WAS CANCELLED, 02/03/2021 01:29 Performed By: #### C BCDF #### [place] [address] MONOCYTE [facility] Comment on above: Order Comment: TEST CBC AND DIFFERENTIAL WAS CANCELLED, 02/03/2021 01:29 Performed By: #### C BCDF #### [place] [address] NEUTROPHIL Canceled [facility] Comment on above: Order Comment: TEST CBC AND DIFFERENTIAL WAS CANCELLED, 02/03/2021 01:29 Result Comment: Perc ent differential counts (%) should be interpreted in the context of the absolute cell counts (cells/L). Performed By: #### C BCDF #### [place] [address] PLT Canceled [facility] Comment on above: Order Comment: TEST CBC AND DIFFERENTIAL WAS CANCELLED, 02/03/2021 01:29 Performed By: #### C BCDF #### [place] [address] RBC [facility] Comment on above: Order Comment: TEST CBC AND DIFFERENTIAL WAS CANCELLED, 02/03/2021 01:29 Performed By: #### C BCDF #### [place] [address] [place] [address] RDW-CV Canceled [facility] Comment on above: Order Comment: TEST CBC AND DIFFERENTIAL WAS CANCELLED, 02/03/2021 01:29 Performed By: #### C BCDF #### [place] [address] [place] [address] WBC [facility] Comment on above: Order Comment: TEST CBC AND DIFFERENTIAL WAS CANCELLED, 02/03/2021 01:29 Performed By: #### C BCDF #### [address] [address] Clinical Event Note-Pharmacy Vancomycin Consult Noteon 02-03-2021 [...] monitoring. Please contact the pharmacy at extension [phone] with any questions. Valentina Ellis [facility] Electronic Signatures: Valentina Ellis ([facility]) (Signed 03-Feb-2021 08:04) Authored: Clinical Event Note Last Updated: 03-Feb-2021 08:04 by Valentina Ellis ([facility]) [facility] Daily Progress Note-General Internal Medicineon 02-03-2021 Daily Progress Note-General Internal Medicine Consult Type: subsequent visit/care Service: General Internal Medicine Subjective Data: SALAZAR COYLE is a 70 year old Female who is Hospital Day # 2. Overnight Events: Patient had an uneventful night. Objective Data: Objective Information: T PRBPSpO2 [id number]/5491% Date/Time02/03 4: 4: 4:00104/05 4:00104/05 4:00 Range(37C - 37.7C ) (84 - [...] Reference Range: STRAW,YELLOW Appearance, Urine HAZY Specific [place], Urine 1.023 pH, Urine 7.0 Protein, Urine [...] tissues along (more content not included)... Normal [facility] Discharge Planning [id number] 1 04-05-2020 Discharge Planning Note2 Discharge Planning: Planned Dispositionskilled/rehab/e xtended care [facility] 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 The patient is here with concerns vascular and cellulites. Spouse and patient both advise patient has been totally bedbound for 4 yrs. Patient would be a return to [facility] as she is a residential bed hold there. Patient cried out when TCC incidentally touched top blanket she advises that any care below the knee is intolerable to her. Facility want a wt. and at this moment nursing will be checking the bed scale today but initial information was that pt was 427 . PCN is placing referral in [facility]. kb 02/03/2021 12:10 PCN: Per TCC, built and sent referral for a RETURN to [facility] [place] via [facility]. TIGRE Rodriguez 02/04/21 Kinjal GARZA Per afternoon [...] information resource. kb Assessment: Discharge Planning Assessment [id number] Lives Withalone(1) Living Arrangementsresidential facility/correction(1) Stated Reason for Admissionulcer on right foot needs checked (1) Arrived Fromemergency department (1) Resource/Environmental Concernsnone(1) Anticipated Transition Toresidential/correction(1) Services Anticipated at Transitionnone(1) Electronic Signatures: Kim Baeza (PCN) (Signed 03-Feb-2021 14:02) Authored: Discharge Planning Dina Daly ([facility]) (Signed 04-Feb-2021 15:41) Authored: Discharge Planning, Assessment Last Updated: 04-Feb-2021 15:41 by Dina Daly ([facility]) References: 1. Data Referenced From Patient Profile - Adult v2" 02-Feb-2021 23:35 Normal [facility] Glucose [Mass/Vol] 182 mg/dL High 74 - 99 [facility] Comment on above: Performed By: #### C BCDF #### [address] [address] Glucose [Mass/Vol] 154 mg/dL High 74 - 99 [facility] Comment on above: Performed By: #### C BCDF #### [address] [address] Glucose [Mass/Vol] 226 mg/dL High 74 - [address] [place] [address] Comment on above: Performed By: #### C BCDF #### [address] [address] Glucose [Mass/Vol] 182 mg/dL High 74 - [address] [place] [address] Comment on above: Performed By: #### G LAYNE #### [address] [address] MAGNESIUMon 02-03-2021 Magnesium [Mass/Vol] 2.04 mg/dL Normal 1.60 - 2.40 [facility] Comment on above: Performed By: #### C BCDF #### [address] [address] MAGNESIUM Canceled Normal [facility] Comment on above: Order Comment: TEST MAGNESIUM WAS CANCELLED, 02/03/2021 01:29 Performed By: #### M G #### [address] [address] PHOSPHORUSon 02-03-2021 Phosphate [Mass/Vol] 4.0 mg/dL Normal 2.5 - 4.9 [facility] Comment on above: Result Comment: The performance characteristics of phosphorus testing in heparinized plasma have been validated by the individual laboratory site where testing is performed. Testing on heparinized plasma is not approved by the FDA; however, such approval is not necessary. Performed By: #### G LAYNE #### [address] [address] PHOSPHORUS Canceled Normal [facility] Comment on above: Order Comment: TEST PHOSPHORUS WAS CANCELLED, 02/03/2021 01:29 Result Comment: The performance characteristics of phosphorus testing in heparinized plasma have been validated by the individual laboratory site where testing is performed. Testing on heparinized plasma is not approved by the FDA; however, such approval is not necessary. Performed By: #### P HOS #### [address] [address] Patient Profile - Adult v2on 02-03-2021 Patient Profile - Adult v2 Profile: Initial Info: How to be AddressedGail(1) Spoken Language PreferredEnglish (2) Source of Informationpatient Stated Reason for Admissionulcer on right foot needs checked Wants Family/Rep Notified of Admissionno Notify PCPdo not notify PCP Informed of Patient Visiting Rightsyes [facility] Admitted To in Past 90 Daysresidential facility Employment Statusdisabled Current or Previous Servicenone Patient Belongingsnone Medications Brought to Hospitalno General Health: Weight in kg193.7 kilogram(s) Weight in ojw930 pound(s) Weight Methodactual (measured) Scale Typebed Height [...] Source of Support/Comfortspouse Lives Withalone Living Arrangementsresidential facility/correction Services Anticipated at Transitionnone Anticipated Transition Toresidential/correction Significant IndicatorsComplete Information Review: Allergies, Home Meds and Significant Events have been Reviewed and Verified with Patient/Familyyes ALLERGY, INTOLERANCE, ADVERSE EVENT: Allergies: No Known Allergies: Active Electronic Signatures: Charlotte Chilel (MATHEUS) (Signed 02-Feb-2021 23:49) Authored: Initial Info, General Health, RSP Based Care, Substance, Health Mgmt, Relationship/Environ, Additional Information Last Updated: 02-Feb-2021 23:49 by Charlotte Chilel (MATHEUS) References: 1. Data Referenced From Patient Profile - Adult v2" 05-Aug-2019 22:48 2. Data Referenced From "Triage - ED" 02-Feb-2021 18:17 3. Data Referenced From 1. Vital Signs 02-Feb-2021 18:17 4. Data Referenced From Risk Screen - Adult Emergency" 02-Feb-2021 18:21 Normal [facility] UA MICROSCOPICon 02-03-2021 AMORPHOUS CRYSTAL 2+ /HPF Normal [facility] Comment on above: Performed By: #### B MP #### [facility] [address] [place] [address] BACTERIA 4+ /HPF Abnormal [facility] Comment on above: Performed By: #### B MP #### [address] [address] Mucus Ql (Urine sed) 2+ /LPF Normal [facility] Comment on above: Performed By: #### B MP #### [address] [address] RBC 79 /HPF Abnormal 0-5 [facility] Comment on above: Performed By: #### B MP #### [address] [address] WBC (U) [#/Vol] /uL Abnormal 0-5 [facility] Comment on above: Performed By: #### B MP #### [place] [address] WBC CLUMPS MANY Normal [facility] Comment on above: Performed By: #### B MP #### [place] [address] URINALYSIS WITH CULTURE IF I NDICATEDon 02-03-2021 Appearance (U) HAZY Normal CLEAR [facility] Comment on above: Performed By: #### U ARFX #### [place] [address] Bilirubin Ql (U) Negative Normal NEGATIVE [facility] Comment on above: Performed By: #### U ARFX #### [address] [address] Color (U) Yellow Normal STRAW,YELLO W [facility] Comment on above: Performed By: #### U ARFX #### [address] [address] Glucose Ql (U) Negative Normal NEGATIVE [facility] Comment on above: Performed By: #### U ARFX #### [address] [address] Hemoglobin Ql (U) MODERATE(2+) Abnormal NEGATIVE [facility] Comment on above: Performed By: #### U ARFX #### [place] [id number] Ketones Ql (U) 5(TRACE) Abnormal NEGATIVE [facility] Comment on above: Performed By: #### U ARFX #### [place] [address] Leukocyte esterase Test strip Ql (U) MODERATE(2+) Abnormal NEGATIVE [facility] Comment on above: Performed By: #### U ARFX #### [place] [address] Nitrite Ql (U) Negative Normal NEGATIVE [facility] Comment on above: Performed By: #### U ARFX #### [place] [address] pH (U) 7.0 [pH] Normal 5.0 - 8.0 [facility] Comment on above: Performed By: #### U ARFX #### [place] [address] Protein Ql (U) 100(2+) Abnormal NEGATIVE [facility] Comment on above: Performed By: #### U ARFX #### [place] [address] Specific gravity (U) [Rel density] 1.023 Normal 1.005 - 1.035 [facility] Comment on above: Performed By: #### U ARFX #### [place] [address] Urobilinogen (U) [Mass/Vol] mg/dL Normal 0.0 - 1.9 [facility] Comment on above: Performed By: #### U ARFX #### [place] [address] Lab Specimen Source Normal [facility] Comment on above: Performed By: #### U ARFX #### [place] [address] Performed By: #### B MP #### [place] [address] URINE CULTURE,BACTERIALon URINE CULTURE,BACTERIAL PATIENT: SALAZAR COYLE LOCATION: [address]#: [id number] : 46 AGE: SEX: F ORDERED BY: [employer] SOURCE: URINE COLLECTED: 02/03/21 01:09 ANTIBIOTICS AT [place].: RECEIVED : 02/03/21 11:38 SITE: R E S U L T S URINE CULTURE,BACTERIAL FINAL 02/04/21 09:10 MULTIPLE ORGANISMS PRESENT, PROBABLE CONTAMINATION PLEASE REPEAT CULTURE. [facility] Comment on above: Performed By: #### G LAYNE #### [address] [address] BLOOD CULTURE, BACTERIALon 1 04-04-2020 BLOOD CULTURE, BACTERIAL PATIENT: SALAZAR COYLE LOCATION: [address] BILL#: [id number] : 46 AGE: SEX: F ORDERED BY: [employer] CAD[employer] SOURCE: Blood COLLECTED: 02/02/21 18:45 ANTIBIOTICS AT [place]BIN[place].: RECEIVED : 02/02/21 23:03 SITE: left ac R E S U L T S BLOOD CULTURE, BACTERIAL FINAL 02/07/21 23:42 No Growth at 1 days No Growth at 2 days No Growth at 3 days No Growth at 4 days NO GROWTH - FINAL REPORT Normal [facility] Comment on above: Performed By: #### P HOS #### [address] [address] BLOOD CULTURE, BACTERIAL PATIENT: SALAZAR COYLE LOCATION: [address] BILL#: [id number] : 46 AGE: SEX: F ORDERED BY: [employer] SOURCE: Blood COLLECTED: 02/02/21 18:45 ANTIBIOTICS AT [place]BIN[place].: RECEIVED : 02/02/21 23:01 SITE: right arm R E S U L T S BLOOD CULTURE, BACTERIAL FINAL 02/07/21 23:42 No Growth at 1 days No Growth at 2 days No Growth at 3 days No Growth at 4 days NO GROWTH - FINAL REPORT [facility] Comment on above: Performed By: #### P HOS #### [address] [address] C-REACTIVE PROTEINon 021 C-REACTIVE PROTEIN 16.35 mg/dL Abnormal [facility] Comment on above: Result Comment: REF VALUE < 1.00 Performed By: #### G LAYNE #### [address] [address] CBC AND DIFFERENTIALon 02-02 Basophils (Bld) [#/Vol] 0.10 10*3/uL Normal 0.00 - 0.10 [facility] Comment on above: Performed By: #### B MP #### [place] [id number] Basophils/100 WBC (Bld) 0.8 % Normal 0.0 - 2.0 [facility] Comment on above: Performed By: #### B MP #### [place] [id number] Eosinophils (Bld) [#/Vol] 0.30 10*3/uL Normal 0.00 - 0.40 [facility] Comment on above: Performed By: #### B MP #### [place] [id number] Eosinophils/100 WBC (Bld) 3.6 % Normal 0.0 - 6.0 [facility] Comment on above: Performed By: #### B MP #### [address] [address] Erythrocyte distribution width (RBC) [Ratio] 16.4 % High 11.5 - 14.5 [facility] Comment on above: Performed By: #### B MP #### [address] [address] Hematocrit (Bld) [Volume fraction] 32.6 % Low 36.0 - 46.0 [facility] Comment on above: Performed By: #### B MP #### [address] [address] Hemoglobin (Bld) [Mass/Vol] 10.3 g/dL Low 12.0 - 16.0 [facility] Comment on above: Performed By: #### B MP #### [address] [address] Lymphocytes (Bld) [#/Vol] 1.30 10*3/uL Normal 0.80 - 3.00 [facility] Comment on above: Performed By: #### B MP #### [address] [address] Lymphocytes/100 WBC (Bld) 18.1 % Normal 13.0 - 44.0 [facility] Comment on above: Performed By: #### B MP #### [address] [address] MCHC (RBC) [Mass/Vol] 31.6 g/dL Low 32.0 - 36.0 [facility] Comment on above: Performed By: #### B MP #### [address] [address] MCV (RBC) [Entitic vol] 95 fL Normal 80 - 100 [facility] Comment on above: Performed By: #### B MP #### [address] [address] Monocytes (Bld) [#/Vol] 0.60 10*3/uL Normal 0.05 - 0.80 [facility] Comment on above: Performed By: #### B MP #### [address] [address] Monocytes/100 WBC (Bld) 8.8 % Normal 2.0 - 10.0 [facility] Comment on above: Performed By: #### B MP #### [address] [address] Neutrophils (Bld) [#/Vol] 4.90 10*3/uL Normal 1.60 - 5.50 [facility] Comment on above: Result Comment: Perc ent differential counts (%) should be interpreted in the context of the absolute cell counts (cells/L). Performed By: #### B MP #### [address] [address] Neutrophils/100 WBC (Bld) 68.7 % Normal 40.0 - 80.0 [facility] Comment on above: Performed By: #### B MP #### [address] [address] NUCLEATED RBC 0.1 /100 WBC Normal [facility] Comment on above: Performed By: #### B MP #### [address] [address] Platelets (Bld) [#/Vol] 254 10*3/uL Normal 150 - 450 [facility] Comment on above: Performed By: #### B MP #### [address] [address] RBC 3.44 x10E12/L Low 4.00 - 5.20 [facility] Comment on above: Performed By: #### B MP #### [address] [address] WBC (Bld) [#/Vol] 7.1 10*3/uL Normal 4.4 - 11.3 [facility] Comment on above: Performed By: #### B MP #### [address] [address] CHEST 1 VIEWon 02-02-2021 CHEST 1 VIEW Patient Name: SALAZAR COYLE STUDY: CHEST 1 VIEW; 02/02/2021 7:19 pm INDICATION: sepsis COMPARISON: Chest x-ray 03/17/2020, 08/06/2019, 08/05/2019. ACCESSION NUMBER(S): [id number] ORDERING CLINICIAN: NATO CADET TECHNIQUE: 2 portable supine frontal views of the chest were obtained. FINDINGS: The patient is rotated. The cardiomediastinal silhouette is stable. No focal consolidation, pleural effusion or pneumothorax. IMPRESSION: 1. No radiographic evidence of acute cardiopulmonary process. Electronically signed by: CARLOS WHITING DO Normal [facility] COMPREHENSIVE PANELon 2020 Albumin [Mass/Vol] 3.1 g/dL Low 3.4 - 5.0 [facility] Comment on above: Performed By: #### P HOS #### [address] [address] ALP [Catalytic activity/Vol] 72 U/L Normal 33 - 136 [facility] Comment on above: Performed By: #### P HOS #### [address] [address] ALT [Catalytic activity/Vol] 9 U/L Normal 7 - 45 [facility] Comment on above: Result Comment: Corrina ents treated with Sulfasalazine may generate falsely decreased results for ALT. Performed By: #### P HOS #### [address] [address] Anion gap [Moles/Vol] 11 mmol/L Normal 10 - 20 [facility] Comment on above: Performed By: #### P HOS #### [address] [address] AST [Catalytic activity/Vol] 10 U/L Normal 9 - 39 [facility] Comment on above: Performed By: #### P HOS #### [address] [address] Bilirubin [Mass/Vol] 0.4 mg/dL Normal 0.0 - 1.2 [facility] Comment on above: Performed By: #### P HOS #### [address] [address] Calcium [Mass/Vol] 8.5 mg/dL Low 8.6 - 10.3 [facility] Comment on above: Performed By: #### P HOS #### [address] [address] Chloride [Moles/Vol] 104 mmol/L Normal 98 - 107 [facility] Comment on above: Performed By: #### P HOS #### [address] [address] Creatinine [Mass/Vol] 0.65 mg/dL Normal 0.50 - 1.05 [facility] Comment on above: Performed By: #### P HOS #### [address] [address] GFR- AM. >60 Normal >60 [facility] Comment on above: Result Comment: CALC ULATIONS OF ESTIMATED GFR ARE PERFORMED USING THE MDRD STUDY EQUATION FOR THE IDMS-TRACEABLE CREATININE METHODS. CLIN CHEM 2007;53:766-72 Performed By: #### P HOS #### [address] [address] GFR-NON AM. >60 Normal >60 [facility] Comment on above: Performed By: #### P HOS #### [address] [address] Glucose [Mass/Vol] 209 mg/dL High 74 - 99 [facility] Comment on above: Performed By: #### P HOS #### [address] [address] HCO3 (Bld) [Moles/Vol] 30 mmol/L Normal 21 - 32 [facility] Comment on above: Performed By: #### P HOS #### [address] [address] Potassium [Moles/Vol] 4.0 mmol/L Normal 3.5 - 5.3 [facility] Comment on above: Performed By: #### P HOS #### [address] [address] Protein [Mass/Vol] 6.4 g/dL Normal 6.4 - 8.2 [facility] Comment on above: Performed By: #### P HOS #### [address] [address] Sodium [Moles/Vol] 141 mmol/L Normal 136 - 145 [facility] Comment on above: Performed By: #### P HOS #### [place] [id number] Urea nitrogen [Mass/Vol] 19 mg/dL Normal 6 - 23 [facility] Comment on above: Performed By: #### P HOS #### [place] [id number] CORONAVIRUS 2019, SCREEN ASY MPTOMATICon 02-02-2021 SARS-CoV-2 (COVID-19) RNA EZIO+probe Ql (Unsp spec) Not detected Normal Not Detected [facility] Comment on above: Result Comment: . This test has received FDA Emergency Use Authorization (EUA) and has been verified by [facility]. This test is only authorized for the duration of time that circumstances exist to justify the authorization of the emergency use of in vitro diagnostic tests for the detection of SARS-CoV-2 virus and/or diagnosis of COVID-19 infection under section 564(b)(1) of the Act, 21 U.S.C. 360bbb-3(b)(1), unless the authorization is terminated or revoked sooner. [facility] is certified under CLIA-88 as qualified to perform high complexity testing. Testing is performed in the [facility] laboratory located at [address] [place] [address]. SARS-CoV-2/Flu/RSV Multiplex Test: Fact sheet for providers: https://www.fda.gov/media/029298/download Fact sheet for patients: https://www.fda.gov/media/702088/download Performed By: #### C OVSC #### [place] [address] Lab Specimen Source Nasal, Nasopharyngeal Normal [facility] Comment on above: Performed By: #### C OVSC #### [place] [address] Covid 19 Resultson 1 SARS-CoV-2 (COVID-19) RNA [...] You may also be contacted by the [facility] to see if any of your close [...] or Naproxen (Aleve) can also be used. Qbyv-nys-vheultx cough and cold medicines can be used according to the instructions on the package. Some ikgq-fpc-wzkenln medicines also contain acetaminophen. Make sure you [...] water are not available, use alcohol-based hand concert singer. Avoid touching your eyes, nose, and mouth [...] 24 ruth (more content not included)... Normal [facility] EMR ADDONon 02-02-2021 ADDON CONFIRMATION REQUEST REC'D Normal [facility] Comment on above: Performed By: #### B #### [address] [place] [address] FOOT, 2 VIEWSon 02-02-2021 FOOT, 2 VIEWS Patient Name: SALAZAR COYLE STUDY: FOOT, 2 VIEWS; 02/02/2021 7:19 pm INDICATION: infection vs osteo . COMPARISON: Right foot x-ray 08/06/2019. ACCESSION NUMBER(S): [id number] ORDERING CLINICIAN: NATO CADET FINDINGS: AP and [...] to evaluate for ulcers. Electronically signed by: DO Marly FERGUSON [facility] LACTATEon 02-02-2021 Lactate [Moles/Vol] 1.9 mmol/L Normal 0.4 - 2.0 [facility] Comment on above: Result Comment: Maritza puncture immediately after or during the administration of Metamizole may lead to falsely low results. Testing should be performed immediately prior to Metamizole dosing. Performed By: #### G LAYNE #### [address] [place] [address] Order Reconciliationon 02-02 Order Reconciliation Page 1 Admission Reconciliation Document Reconciliation Type: Admission requested on behalf of Km Parry (Physician) done by Km Parry) Admission - Reconciliation: 02-Feb-2021 21:44 by: Km Parry) Home MedicationsEnteredLast Dose TakenReconciled with current Order Reconciliation Comment/ Additional Information ascorbic acid 500 mg oral tablet 1 tab(s) orally once a [id number] Reviewed and Held aspirin 81 mg oral delayed release tablet 1 tab(s) orally once a day 02-Feb-2021 Aspirin Enteric Coated Enteric Coated Tablet (ECOTRIN)DOSE = 81 mg Oral Dailyaspirin 81 mg oral delayed release tablet continued as the inpatient order Aspirin Enteric Coated baclofen 10 mg oral tablet 2 tab(s) orally 3 times a [id number] Baclofen Tablet (LIORESAL)DOSE = 20 mg Oral 3 Times a Daybaclofen 10 mg oral tablet continued as the inpatient order Baclofen Bumex 0.5 mg oral tablet 1 tab(s) orally 2 times a iwj26-Aaq-2161 Bumetanide Tablet (BUMEX)DOSE = 0.5 mg Oral [...] tablet 1 tab(s) orally 2 times a rzc00-Mma-6929 Reviewed and Held gabapentin 300 mg oral capsule 1 cap(s) orally 2 times a osk25-Xeh-5665 Gabapentin CapsuleDOSE = 300 mg Oral 2 Times a Daygabapentin 300 mg oral capsule continued as the inpatient order Gabapentin insulin lispro 100 units/mL subcutaneous solution subcutaneous 3 times a day (before meals)02-Feb-2021 Reviewed and Held Lantus 100 units/mL subcutaneous solution unit(s) subcutaneous 2 times a day. 55 units in AM and 35 units in [id number] Insulin Glargine (Lantus) Injectable DOSE = 55 [...] oral tablet 1 tab(s) orally once a ids06-Pvr-5336 Atorvastatin Tablet (LIPITOR)DOSE = 20 mg Oral DailyLipitor 20 mg oral tablet continued as the inpatient order Atorvastatin magnesium oxide 400 mg (241.3 mg elemental magnesium) oral tablet 1 tab(s) orally once a cbv36-Get-2268 Reviewed and Held metFORMIN 1000 mg oral tablet 1 tab(s) orally 2 times a nqr27-Xvu-9179 Reviewed and Held Multi Vitamin+ 1 tab(s) orally once a vdt98-Bja-4751 Reviewed and Held nitrofurantoin macrocrystals 50 mg [...] tablet 2 tab(s) orally 2 times a xhf18-Bxk-9777 Docusate 50 mg - Senna 8.6 mg Tablet (SENOKOT S)DOSE = 2 tablet(s) Oral 2 Times a DaySenna Plus 50 mg-8.6 mg oral tablet continued as the inpatient order Docusate 50 mg - Senna 8.6 mg Tylenol 500 mg oral tablet 2 tab(s) orally 3 times a qnz91-Huh-3313 Acetaminophen Tablet (TYLENOL)DOSE = 975 mg Oral Every 8 HoursTylenol 500 mg oral tablet continued as the inpatient order Acetaminophen Zofran 4 mg oral tablet 1 tab(s) orally every 8 hours, As Dyjixo93-Eiu-1211 Reviewed and Held [facility] Provider Note - ED v3on 11-0 Provider Note - ED v3 Provider Note: Chart Review: ED NOTES ED NOTES: HPI: Patient sent to the emergency department by Dr. Barbour from local long-term for concerns of right foot infection. He [...] Alert and oriented x4, GCS 15 , chemist biological II-XII grossly intact. Sensation and motor function of extremities grossly intact. Psych: Appropriate mood and affect. I have reviewed and confirmed nurses/medics notes for patient past, social and family history. Portions of this note were dictated by speech recognition. An attempt at proof reading was made to minimize errors. Minor errors in analytical lead may be present. HISTORY OF PRESENTING ILLNESS SALAZAR is a 70 year old Female and was seen by me at 02-Feb-2021 18:13 for a chief complaint of foot pain/injury (Pt brought by [facility] from [facility] for complaint of "gangrene" to right foot. [...] bone dens (more content not included)... Normal [facility] Risk Screen - Adult Emergenc yon 02-02-2021 Risk Screen - Adult Emergency Preferred Language: Preferred Language: Preferred Language for Discussing Health Care (patient/designee)Swiss Advanced Directives: Advance Directive/DNRyes Advance Directive typeDNR- CCA DNR-CCA Availabilityplaced on chart DNR-CCA Placed on [id number] Family Violence Adult: Abuse Screen: Are you or have you been threatened or abused physically, emotionally, or sexually by anyoneno Learning Assessment (Patient): Learning Assessment (Patient): Patient is Able to be Assessed for Learningyes Factors Influencing Readiness to Learnacuteness of illness Factors that Impact Ability to Learnnone Devices/Methods Used to Communicatenone Learning Preferencesaudio Cultural Considerationsnone Developmental Considerationsnone Samaritan Considerationsnone Learning Assessment (Other Learner): Learning Assessment (Other Learner): Other learner availableno Pressure Injury/TB/Substance: Pressure Injury: Pressure Injury Present on Admissionno Do you have a coughno Smoking Statusnever smoker Alcohol Usedenies Drug Usedenies Drug 2 Usedenies Admission Risk Screen: Significant IndicatorsComplete CAGE: CAGE: Is this an injured [place] [place]ena/Quan/Cynthia Gonzalez/Gregory): no Electronic Signatures: Neelima Real (MATHEUS) (Signed 02-Feb-2021 18:22) Authored: Preferred Language, Advanced Directives, Family Violence Adult, Learning Assessment (Patient), Learning Assessment (Other Learner), Pressure Injury/TB/Substance, Pressure Injury, CAGE Last Updated: 02-Feb-2021 18:22 by Neelima Real (MATHEUS) Normal [facility] SEDIMENTATION RATE, ERYTHROC YTEon 02-02-2021 SEDIMENTATION RATE, ERYTHROCYTE 79 mm/h High 0 - 30 [facility] Comment on above: Performed By: #### B #### [address] [address] Triage - EDon 02-02-2021 Triage - ED [...] Arrival: stretcher Mode of Arrival: ambulance Agency: [facility] Agency Name: [facility] Arrival From: home Accompanied By: self Language: Spoken Language Preferred: Swiss Reading Language Preferred: Swiss Neurosurgeon Requested: no crane man was requested MDRO: History of MDRO: no Present on Arrival: Device Present on Arrival to ED: no Pressure Ulcer Present on Arrival to ED: no CHIEF COMPLAINT SALAZAR COYLE is a Female patient with a chief complaint of foot pain/injury (Pt brought by [facility] from [facility] for complaint of "gangrene" to right foot. [...] BMI (kg/m2): 67.567 Calculated BSA (m2) 3.04 [place] Coma Scale: Best Eye Response: (E4) spontaneous [...] Last Updated: 02-Feb-2021 18:20 by Neelima Real (MATHEUS) Normal [facility] Office Visit (Internal Medic ine)on 05-25-2020 Follow-up [...] Pt wants to see Dr. Inter[facility] at [facility] CHF- EF was 60-65% + mitral calcification. [...] to her morbid obesity. Patient was at [facility] for about 2 weeks and then sent to ER on 08/05/19. She was then transferred to [facility] and discharged on 08/14/19. She was dx [...] MD; May 25 2020 4:51PM EST Normal [facility] BASIC METABOLIC PANELon 05-03 Anion gap [Moles/Vol] 11 mmol/L Normal 10 - 20 [facility] Comment on above: Performed By: #### P HOS #### [place] [address] Calcium [Mass/Vol] 8.2 mg/dL Low 8.6 - 10.3 [facility] Comment on above: Performed By: #### P HOS #### [address] [address] Chloride [Moles/Vol] 103 mmol/L Normal 98 - 107 [facility] Comment on above: Performed By: #### P HOS #### [address] [address] Creatinine [Mass/Vol] 0.68 mg/dL Normal 0.50 - 1.05 [facility] Comment on above: Performed By: #### P HOS #### [address] [address] GFR- AM. >60 Normal >60 [facility] Comment on above: Result Comment: CALC ULATIONS OF ESTIMATED GFR ARE PERFORMED USING THE MDRD STUDY EQUATION FOR THE IDMS-TRACEABLE CREATININE METHODS. CLIN CHEM 2007;53:766-72 Performed By: #### P HOS #### [address] [address] GFR-NON AM. >60 Normal >60 [facility] Comment on above: Performed By: #### P HOS #### [address] [address] Glucose [Mass/Vol] 311 mg/dL High 74 - 99 [facility] Comment on above: Performed By: #### P HOS #### [address] [address] HCO3 (Bld) [Moles/Vol] 28 mmol/L Normal 21 - 32 [facility] Comment on above: Performed By: #### P HOS #### [address] [address] Potassium [Moles/Vol] 4.3 mmol/L Normal 3.5 - 5.3 [facility] Comment on above: Result Comment: MILD HEMOLYSIS DETECTED. The result may be falsely elevated due to hemolysis or other interferents. Clinical correlation is recommended. Repeat testing may be considered. Performed By: #### P HOS #### [place] [id number] Sodium [Moles/Vol] 138 mmol/L Normal 136 - 145 [facility] Comment on above: Performed By: #### P HOS #### [address] [address] Urea nitrogen [Mass/Vol] 16 mg/dL Normal 6 - 23 [facility] Comment on above: Performed By: #### P HOS #### [address] [address] CBC AND DIFFERENTIALon 05-15 DIFFERENTIAL SEE MANUAL DIFF Normal [facility] Comment on above: Performed By: #### B MP #### [address] [address] Erythrocyte distribution width (RBC) [Ratio] 16.3 % High 11.5 - 14.5 [facility] Comment on above: Performed By: #### B MP #### [address] [address] Hematocrit (Bld) [Volume fraction] 34.5 % Low 36.0 - 46.0 [facility] Comment on above: Performed By: #### B MP #### [address] [address] Hemoglobin (Bld) [Mass/Vol] 11.1 g/dL Low 12.0 - 16.0 [facility] Comment on above: Performed By: #### B MP #### [address] [address] MCHC (RBC) [Mass/Vol] 32.1 g/dL Normal 32.0 - 36.0 [facility] Comment on above: Performed By: #### B MP #### [address] [address] MCV (RBC) [Entitic vol] 101 fL High 80 - 100 [facility] Comment on above: Performed By: #### B MP #### [address] [address] NUCLEATED RBC 1.0 /100 WBC Normal [facility] Comment on above: Performed By: #### B MP #### [address] [address] Platelets (Bld) [#/Vol] 204 10*3/uL Normal 150 - 450 [facility] Comment on above: Performed By: #### B MP #### [address] [address] RBC 3.41 x10E12/L Low 4.00 - 5.20 [facility] Comment on above: Performed By: #### B MP #### [address] [address] WBC (Bld) [#/Vol] 6.0 10*3/uL Normal 4.4 - 11.3 [facility] Comment on above: Performed By: #### B MP #### [address] [address] MANUAL DIFFERENTIALon 2020 % BAND NEUTROPHIL 4.0 % Normal 0.0 - 5.0 [facility] Comment on above: Performed By: #### C BCDF #### [address] [address] % BASOPHIL 0.0 % Normal 0.0 - 2.0 [facility] Comment on above: Performed By: #### C BCDF #### [address] [address] % EOSINOPHIL 11.0 % Normal 0.0 - 6.0 [facility] Comment on above: Performed By: #### C BCDF #### [address] [address] % LYMPHOCYTE 24.0 % Normal 13.0 - 44.0 [facility] Comment on above: Performed By: #### C BCDF #### [address] [address] % MONOCYTE 3.0 % Normal 2.0 - 10.0 [facility] Comment on above: Performed By: #### C BCDF #### [address] [address] % SEG NEUTROPHIL 58.0 % Normal 40.0 - 80.0 [facility] Comment on above: Result Comment: Perc ent differential counts (%) should be interpreted in the context of the absolute cell counts (cells/L). Performed By: #### C BCDF #### [address] [address] ANC 3.72 x10E9/L Normal 1.60 - 5.50 [facility] Comment on above: Performed By: #### C BCDF #### [address] [address] BAND NEUTROPHIL 0.24 x10E9/L Normal 0.00 - 0.50 [facility] Comment on above: Performed By: #### C BCDF #### [address] [address] BASOPHIL 0.00 x10E9/L Normal 0.00 - 0.10 [facility] Comment on above: Performed By: #### C BCDF #### [address] [address] EOSINOPHIL 0.66 x10E9/L High 0.00 - 0.40 [facility] Comment on above: Performed By: #### C BCDF #### [address] [address] LYMPHOCYTE 1.44 x10E9/L Normal 0.80 - 3.00 [facility] Comment on above: Performed By: #### C BCDF #### [address] [address] MONOCYTE 0.18 x10E9/L Normal 0.05 - 0.80 [facility] Comment on above: Performed By: #### C BCDF #### [address] [address] SEG NEUTROPHIL 3.48 x10E9/L Normal 1.60 - 5.00 [facility] Comment on above: Performed By: #### C BCDF #### [address] [address] RED CELL MORPHOLOGYon 2020 RBC morphology finding Nom (Bld) NORMAL Normal [facility] Comment on above: Performed By: #### C BCDF #### [address] [address] Office Visit (Internal Medic ine)on 03-18-2020 Follow-up [...] to her morbid obesity. Patient was at [facility] for about 2 weeks and then sent to ER on 08/05/19. She was then transferred to [facility] and discharged on 08/14/19. She was dx [...] 0.8 glucose 162 Results/Data Xray Chest 1 [id number] 10:14AMNon Ambulatory, Provider Ordering Provider: RAMONE HASTINGS [id number] Test NameResultFlagReference Xray Chest 1 View(Report) Interpreted by: KIM 03/17/20 10:38 Patient Name: SALAZAR COYLE STUDY: CHEST 1 VIEW; 03/17/2020 10:14 am INDICATION: cough. COMPARISON: 08/06/2019 ACCESSION NUMBER(S): [id number] ORDERING CLINICIAN: RAMONE HASTINGS FINDINGS: AP portable view of the chest is obtained. Limited exam due to portable nature. Magnified cardiac silhouette. No infiltrates, effusions or pneumothor (more content not included)... Normal [facility] CBC AND DIFFERENTIALon 03-17 Basophils (Bld) [#/Vol] 0.00 10*3/uL Normal 0.00 - 0.10 [facility] Comment on above: Performed By: #### P HOS #### [address] [address] Basophils/100 WBC (Bld) 0.3 % Normal 0.0 - 2.0 [facility] Comment on above: Performed By: #### P HOS #### [address] [address] Eosinophils (Bld) [#/Vol] 0.30 10*3/uL Normal 0.00 - 0.40 [facility] Comment on above: Performed By: #### P HOS #### [address] [address] Eosinophils/100 WBC (Bld) 5.4 % Normal 0.0 - 6.0 [facility] Comment on above: Performed By: #### P HOS #### [address] [address] Erythrocyte distribution width (RBC) [Ratio] 15.7 % High 11.5 - 14.5 [facility] Comment on above: Performed By: #### P HOS #### [address] [address] Hematocrit (Bld) [Volume fraction] 35.9 % Low 36.0 - 46.0 [facility] Comment on above: Performed By: #### P HOS #### [address] [address] Hemoglobin (Bld) [Mass/Vol] 11.4 g/dL Low 12.0 - 16.0 [facility] Comment on above: Performed By: #### P HOS #### [address] [address] Lymphocytes (Bld) [#/Vol] 1.30 10*3/uL Normal 0.80 - 3.00 [facility] Comment on above: Performed By: #### P HOS #### [address] [address] Lymphocytes/100 WBC (Bld) 26.2 % Normal 13.0 - 44.0 [facility] Comment on above: Performed By: #### P HOS #### [address] [place] [address] MCHC (RBC) [Mass/Vol] 31.9 g/dL Low 32.0 - 36.0 [facility] Comment on above: Performed By: #### P HOS #### [address] [address] MCV (RBC) [Entitic vol] 103 fL High 80 - 100 [facility] Comment on above: Performed By: #### P HOS #### [address] [address] Monocytes (Bld) [#/Vol] 0.40 10*3/uL Normal 0.05 - 0.80 [facility] Comment on above: Performed By: #### P HOS #### [address] [address] Monocytes/100 WBC (Bld) 7.1 % Normal 2.0 - 10.0 [facility] Comment on above: Performed By: #### P HOS #### [place] [id number] Neutrophils (Bld) [#/Vol] 3.00 10*3/uL Normal 1.60 - 5.50 [facility] Comment on above: Result Comment: Perc ent differential counts (%) should be interpreted in the context of the absolute cell counts (cells/L). Performed By: #### P HOS #### [address] [address] Neutrophils/100 WBC (Bld) 61.0 % Normal 40.0 - 80.0 [facility] Comment on above: Performed By: #### P HOS #### [address] [address] NUCLEATED RBC 0.2 /100 WBC Normal [facility] Comment on above: Performed By: #### P HOS #### [address] [address] Platelets (Bld) [#/Vol] 152 10*3/uL Normal 150 - 450 [facility] Comment on above: Performed By: #### P HOS #### [address] [address] RBC 3.47 x10E12/L Low 4.00 - 5.20 [facility] Comment on above: Performed By: #### P HOS #### [place] [id number] WBC (Bld) [#/Vol] 5.0 10*3/uL Normal 4.4 - 11.3 [facility] Comment on above: Performed By: #### P HOS #### [place] [id number] CHEST 1 VIEWon 03-17-2020 CHEST 1 VIEW Patient Name: SALAZAR COYLE STUDY: CHEST 1 VIEW; 03/17/2020 10:14 am INDICATION: cough. COMPARISON: 08/06/2019 ACCESSION NUMBER(S): [id number] ORDERING CLINICIAN: RAMONE HASTINGS FINDINGS: AP portable view of the chest is obtained. Limited exam due to portable nature. Magnified cardiac silhouette. No infiltrates, effusions or pneumothorax. IMPRESSION: 1. No evidence of acute cardiopulmonary process. Electronically signed by: JAYSON ALVAREZ MD Normal [facility] COMPREHENSIVE PANELon 2019 Albumin [Mass/Vol] 3.4 g/dL Normal 3.4 - 5.0 [facility] Comment on above: Performed By: #### P HOS #### [place] [address] ALP [Catalytic activity/Vol] 59 U/L Normal 33 - 136 [facility] Comment on above: Performed By: #### P HOS #### [place] [address] ALT [Catalytic activity/Vol] 8 U/L Normal 7 - 45 [facility] Comment on above: Result Comment: Corrina ents treated with Sulfasalazine may generate falsely decreased results for ALT. Performed By: #### P HOS #### [place] [address] Anion gap [Moles/Vol] 11 mmol/L Normal 10 - 20 [facility] Comment on above: Performed By: #### P HOS #### [place] [address] AST [Catalytic activity/Vol] 12 U/L Normal 9 - 39 [facility] Comment on above: Performed By: #### P HOS #### [address] [address] Bilirubin [Mass/Vol] 0.4 mg/dL Normal 0.0 - 1.2 [facility] Comment on above: Performed By: #### P HOS #### [address] [address] Calcium [Mass/Vol] 8.9 mg/dL Normal 8.6 - 10.3 [facility] Comment on above: Performed By: #### P HOS #### [address] [address] Chloride [Moles/Vol] 111 mmol/L High 98 - 107 [facility] Comment on above: Performed By: #### P HOS #### [address] [address] Creatinine [Mass/Vol] 0.68 mg/dL Normal 0.50 - 1.05 [facility] Comment on above: Performed By: #### P HOS #### [address] [address] GFR- AM. >60 Normal >60 [facility] Comment on above: Result Comment: CALC ULATIONS OF ESTIMATED GFR ARE PERFORMED USING THE MDRD STUDY EQUATION FOR THE IDMS-TRACEABLE CREATININE METHODS. CLIN CHEM 2007;53:766-72 Performed By: #### P HOS #### [address] [address] GFR-NON AM. >60 Normal >60 [facility] Comment on above: Performed By: #### P HOS #### [address] [address] Glucose [Mass/Vol] 197 mg/dL High 74 - 99 [facility] Comment on above: Performed By: #### P HOS #### [address] [address] HCO3 (Bld) [Moles/Vol] 25 mmol/L Normal 21 - 32 [facility] Comment on above: Performed By: #### P HOS #### [address] [address] Potassium [Moles/Vol] 5.4 mmol/L High 3.5 - 5.3 [facility] Comment on above: Performed By: #### P HOS #### [address] [address] Protein [Mass/Vol] 6.0 g/dL Low 6.4 - 8.2 [facility] Comment on above: Performed By: #### P HOS #### [address] [address] Sodium [Moles/Vol] 142 mmol/L Normal 136 - 145 [facility] Comment on above: Performed By: #### P HOS #### [address] [address] Urea nitrogen [Mass/Vol] 32 mg/dL High 6 - 23 [facility] Comment on above: Performed By: #### P HOS #### [address] [address] LIPASEon 03-17-2020 Lipase [Catalytic activity/Vol] 21 U/L Normal 9 - 82 [facility] Comment on above: Result Comment: Maritza puncture immediately after or during the administration of Metamizole may lead to falsely low results. Testing should be performed immediately prior to Metamizole dosing. V-hgvmat-y-benzoquinone imine (metabolite of Acetaminophen) will generate erroneously low results in samples for patients that have taken toxic doses of acetaminophen. Performed By: #### P HOS #### [address] [address] Provider Note - ED v2on 03-02 Provider [...] ultrasound guidance as performed by my physician judicial administrative assistant and she was given a dose of meropenem. I have paged Dr. Seth notify him. All her questions were answered. She felt comfortable with the plan. Portions of this note were dictated by speech recognition. An attempt at proof reading was made to minimize errors. Minor errors in analytical lead may be present. Please call if questions.. HISTORY OF PRESENTING ILLNESS SALAZAR is a 69 year old Female and was seen by me at 17-Mar-2020 09:48 for a chief complaint of altered mental status (brought in from [facility] for AMS, pt was ok during the [...] tablet Instruc (more content not included)... Normal [facility] Risk Screen - Adult Emergenc yon 03-17-2020 Risk Screen - Adult Emergency Preferred Language: Preferred Language: Preferred Language for Discussing Health Care (patient/designee)Swiss Advanced Directives: Advance Directive/DNRno Family Violence Adult: Abuse Screen: Are you or have you been threatened or abused physically, emotionally, or sexually by anyoneno Learning Assessment (Patient): Learning Assessment (Patient): Patient is Able to be Assessed for Learningyes Factors Influencing Readiness to Learnacuteness of illness Factors that Impact Ability to Learnnone Devices/Methods Used to Communicatenone Learning Preferencesaudio Cultural Considerationsnone Developmental Considerationsnone Samaritan Considerationsnone Learning Assessment (Other Learner): Learning Assessment (Other Learner): Other learner availableno Pressure Injury/TB/Substance: Pressure Injury: Pressure Injury Present on Admissionno Do you have a coughno Substance Use Current or Former Historynever: Cigarette/Tobacco, e-Cigarette/Vaping, Alcohol, Street Drugs Admission Risk Screen: Significant IndicatorsComplete CAGE: CAGE: Is this an [place] [place]Ashu/Quan/Cynthia Gonzalez/Gregory): no Electronic Signatures: Jeferson Martinez (MATHEUS) (Signed 17-Mar-2020 09:49) Authored: Preferred Language, Advanced Directives, Family Violence Adult, Learning Assessment (Patient), Learning Assessment (Other Learner), Pressure Injury/TB/Substance, Pressure Injury, CAGE Last Updated: 17-Mar-2020 09:49 by Jeferson Martinez (MATHEUS) Normal [facility] TROPONIN Ion 03-17-2020 Troponin I.cardiac [Mass/Vol] ng/mL Normal 0.00 - 0.03 [facility] Comment on above: Result Comment: LESS [...] is performed using different testing methodology at [facility] than at other [facility]. Direct result comparisons should only be made within the same method. Performed By: #### C BC #### [facility] [address] [place] [address] Triage - EDon 03-17-2020 Triage - ED Chart Review: ARRIVAL INFORMATION Mode of Arrival: ambulance Agency Name: [facility] CHIEF COMPLAINT SALAZAR COYLE is a Female patient with a chief complaint of altered mental status (brought in from [facility] for AMS, pt was ok during the [...] BMI (kg/m2): 69.420 Calculated BSA (m2) 3.01 [place] Coma Scale: Best Eye Response: (E4) spontaneous Best Motor Response: (M6) obeys commands Best Verbal Response: (V5) oriented [place] Score: 15 Allergies: no Patient has homicidal [...] Medical History Reviewedyes Electronic Signatures: Jeferson Martinez (MATHEUS) (Signed 17-Mar-2020 09:48) Entered: Risk Screens, Pain, Chart Review, Scores, Past Medical History Authored: Quick Triage, Risk Screens, Pain, Chart Review, Scores, Past Medical History Last Updated: 17-Mar-2020 09:48 by Jeferson Martinez (MATHEUS) [facility] Metabolic Panelon 08-14-2019 Glucose [Mass/Vol] 193 mg/dL above high threshold 74 - 99 [facility] Work Phone: Glucose [Mass/Vol] 187 mg/dL above high threshold 74 - 99 [facility] Work Phone: Glucose [Mass/Vol] 137 mg/dL above high threshold 74 - 99 [facility] Work Phone: Vancomycin Level, Randomon 0 08-14-2019 Vancomycin [Mass/Vol] 11.6 ug/mL [facility] Work Phone: Comment on [...] {INR} above high threshold 0.9 - 1.1 [facility] Internal [facility] Work Phone: PT Coag (PPP) [Time] 27.0 {sec} above high threshold 9.7 - 12.7 [facility] Work Phone: Metabolic Panelon 08-13-2019 Glucose [Mass/Vol] 208 mg/dL above high threshold 74 - 99 [facility] Internal [facility] Work Phone: Glucose [Mass/Vol] 145 mg/dL above high threshold 74 - 99 [facility] Internal [facility] Work Phone: Glucose [Mass/Vol] 159 mg/dL above high threshold 74 - 99 [facility] Work Phone: Glucose [Mass/Vol] 144 mg/dL above high threshold 74 - 99 [facility] Work Phone: Otheron 08-13-2019 Interpreted by: VIOLETA FARNSWORTH08/13/19 16:07MRN: [id number] Name: SALAZAR COYLE STUDY:INSERT ROBERTO CARLOS CVC W/O SQ PORT GREATER THAN 5 YRS; ULTRASOUND GUIDANCEFOR VASCULAR ACCESS; 08/13/2019 4:01 pm INDICATION:IV Infusion/IV MEds/Hydration/CT Scan, penniculitis, PICC PowerSingle Lumen. COMPARISON:None. [id number] ORDERING CLINICIAN:ALEXANDRE JC TECHNIQUE:INTERVENTIONALIS T(S):Napoleon Farnsworth MD [...] findings as stated. Performed and dictated at [facility].Electronically signed by: NAPOLEON FARNSWORTH 08/13/19 16:07 Normal [facility] Work Phone: Comment on above: Ordering Provider: Vidal JC [id number] Hematologyon 08-12-2019 INR Coag (PPP) [Relative time] 3.1 {INR} above high threshold 0.9 - 1.1 [facility] Work Phone: PT Coag (PPP) [Time] 35.0 {sec} above high threshold 9.7 - 12.7 [facility] Internal [facility] Work Phone: Metabolic Panelon 08-12-2019 Glucose [Mass/Vol] 200 mg/dL above high threshold 74 - 99 [facility] Work Phone: Glucose [Mass/Vol] 186 mg/dL above high threshold 74 - 99 [facility] Work Phone: Glucose [Mass/Vol] 131 mg/dL above high threshold 74 - 99 [facility] Work Phone: Vancomycin Level, Randomon 0 08-12-2019 Vancomycin [Mass/Vol] 11.6 ug/mL [facility] Work Phone: Comment on above: .Therapeutic Ranges: [...] g/dL below low threshold 3.4 - 5.0 [facility] Internal [facility] Work Phone: Hematologyon 08-11-2019 INR Coag (PPP) [Relative time] 3.8 {INR} above high threshold 0.9 - 1.1 [facility] Work Phone: PT Coag (PPP) [Time] 43.3 {sec} above high threshold 9.7 - 12.7 [facility] Work Phone: Metabolic Panelon 08-11-2019 Glucose [Mass/Vol] 171 mg/dL above high threshold 74 - 99 [facility] Work Phone: Glucose [Mass/Vol] 171 mg/dL above high threshold 74 - 99 [facility] Work Phone: Glucose [Mass/Vol] 173 mg/dL above high threshold 74 - 99 [facility] Work Phone: Glucose [Mass/Vol] 143 mg/dL above high threshold 74 - 99 [facility] Work Phone: Calcium, Ionized Levelon Calcium, Ionized Level 0.97 mmol/L below low threshold See Below [facility] Work Phone: Comment on above: Reference [...] Basophils (Bld) [#/Vol] 0.02 {x10E9/L} See Below [facility] Work Phone: Comment on above: Reference Range: 0.0 0 - 0.10 Basophils/100 WBC (Bld) 0.4 % 0.0 - 2.0 [facility] Work Phone: Eosinophils (Bld) [#/Vol] 0.41 {x10E9/L} See Below [facility] Work Phone: Comment on above: Reference Range: 0.0 0 - 0.70 Eosinophils/100 WBC (Bld) 7.5 % 0.0 - 6.0 [facility] Work Phone: Erythrocyte distribution width (RBC) [Ratio] 15.6 % above high threshold See Below [facility] Work Phone: Comment on above: Reference Range: 11. 5 - 14.5 Hematocrit (Bld) [Volume fraction] 35.5 % below low threshold See Below [facility] Work Phone: Comment on above: Reference Range: 36. 0 - 46.0 Hemoglobin (Bld) [Mass/Vol] 10.2 g/dL below low threshold See Below [facility] Work Phone: Comment on above: Reference Range: 12. 0 - 16.0 Lymphocytes (Bld) [#/Vol] 1.16 {x10E9/L} below low threshold See Below [facility] Work Phone: Comment on above: Reference Range: 1.2 0 - 4.80 Lymphocytes/100 WBC (Bld) 21.2 % See Below [facility] Work Phone: Comment on above: Reference Range: 13. 0 - 44.0 MCHC (RBC) [Mass/Vol] 28.7 g/dL below low threshold See Below [facility] Work Phone: Comment on above: Reference Range: 32. 0 - 36.0 MCV (RBC) [Entitic vol] 99 fL 80 - 100 [facility] Work Phone: Monocytes (Bld) [#/Vol] 0.36 {x10E9/L} See Below [facility] Work Phone: Comment on above: Reference Range: 0.1 0 - 1.00 Monocytes/100 WBC (Bld) 6.6 % 2.0 - 10.0 [facility] Work Phone: Neutrophils (Bld) [#/Vol] 3.48 {x10E9/L} See Below [facility] Work Phone: Comment on above: Reference Range: 1.2 0 - 7.70 Neutrophils/100 WBC (Bld) 63.6 % See Below [facility] Work Phone: Comment on above: Reference Range: 40. 0 - 80.0 Platelets (Bld) [#/Vol] 146 {x10E9/L} below low threshold 150 - 450 [facility] Work Phone: RBC (Bld) [#/Vol] 3.58 {x10E12/L} below low threshold See Below [facility] Work Phone: Comment on above: Reference Range: 4.0 0 - 5.20 WBC (Bld) [#/Vol] 5.5 {x10E9/L} 4.4 - 11.3 [facility] Work Phone: WBC (Bld) [#/Vol] 0.0 {/100_WBC} 0.0 - 0.0 [facility] Work Phone: Complete Blood Count + Differential 0.7 % 0.0 - 0.9 [facility] Work Phone: Comment on above: Immature Granulocyte Count (IG) includes promyelocytes, myelocytes and metamyelocytes but does not include bands. Percent differential counts (%) should be interpreted in the context of the absolute cell counts (cells/L). Hematologyon 08-10-2019 aPTT Coag (PPP) [Time] 47 {sec} above hig h threshold 28 - 38 [facility] Work Phone: Comment on above: THE APTT IS NO LONGE R USED FOR MONITORING UNFRACTIONATED HEPARIN THERAPY. FOR MONITORING HEPARIN THERAPY, USE THE HEPARIN ASSAY. INR Coag (PPP) [Relative time] 3.3 {INR} above high threshold 0.9 - 1.1 [facility] Work Phone: PT Coag (PPP) [Time] 36.9 {sec} above high threshold 9.7 - 12.7 [facility] Work Phone: Magnesium, Serumon 0 Magnesium [Mass/Vol] 1.82 mg/dL See Below -[facility] Work Phone: Comment on above: Reference Range: 1.6 0 - 2.40 Metabolic Panelon 08-10-2019 Glucose [Mass/Vol] 155 mg/dL above high threshold 74 - 99 [facility] Work Phone: Glucose [Mass/Vol] 163 mg/dL above high threshold 74 - 99 [facility] Work Phone: Glucose [Mass/Vol] 186 mg/dL above high threshold 74 - 99 [facility] Work Phone: Glucose [Mass/Vol] 154 mg/dL above high threshold 74 - 99 [facility] Work Phone: Renal Function Panelon 08-09 Albumin BCP dye [Mass/Vol] 2.6 g/dL below low threshold 3.4 - 5.0 [facility] Work Phone: Anion gap [Moles/Vol] 14 mmol/L 10 - 20 [facility] Work Phone: Calcium [Mass/Vol] 7.6 mg/dL below low threshold 8.6 - 10.3 [facility] Work Phone: Chloride [Moles/Vol] 103 mmol/L 98 - 107 [facility] Internal [facility] Work Phone: CO2 [Moles/Vol] 31 mmol/L 21 - 32 [facility] Work Phone: Creatinine [Mass/Vol] 0.74 mg/dL See Below [facility] Work Phone: Comment on above: Reference Range: 0.5 0 - 1.05 Glucose [Mass/Vol] 156 mg/dL above high threshold 74 - 99 [facility] Work Phone: Phosphate [Mass/Vol] 2.8 mg/dL 2.5 - 4.9 [facility] Work Phone: Comment on above: The performance jeovanny acteristics of phosphorus testing in heparinized plasma have been validated by the individual laboratory site where testing is performed. Testing on heparinized plasma is not approved by the FDA; however, such approval is not necessary. Potassium [Moles/Vol] 3.4 mmol/L below low threshold 3.5 - 5.3 [facility] Work Phone: Sodium [Moles/Vol] 145 mmol/L 136 - 145 [facility] Work Phone: Urea nitrogen [Mass/Vol] 13 mg/dL 6 - 23 [facility] Work Phone: Renal Function Panel >60 >60 [facility] Work Phone: Comment on above: CALCULATIONS OF YORDAN MATED GFR ARE PERFORMED USING THE MDRD STUDY EQUATION FOR THE IDMS-TRACEABLE CREATININE METHODS. CLIN CHEM 2007;53:766-72 Vancomycin Level, Randomon 0 08-10-2019 Vancomycin [Mass/Vol] 15.5 ug/mL [facility] Work Phone: Comment on above: .Therapeutic Ranges: Peak: All ages: 30.0-40.0 ug/mL. Trough: Age <18y: 5.0-10.0 ug/mL. Age >/= 18y: 5.0-20.0 ug/mL. Vancomycin trough concentrations drawn immediately prior to the next dose at steady-state are preferred for monitoring patients treated with vancomycin. Ref.: Am J Health-Syst Pharm 66: 83-98, 2009. Calcium, Ionized Levelon Calcium, Ionized Level 0.98 mmol/L below low threshold See Below [facility] Work Phone: Comment on above: Reference [...] Basophils (Bld) [#/Vol] 0.02 {x10E9/L} See Below [facility] Work Phone: Comment on above: Reference Range: 0.0 0 - 0.10 Basophils/100 WBC (Bld) 0.4 % 0.0 - 2.0 [facility] Work Phone: Eosinophils (Bld) [#/Vol] 0.38 {x10E9/L} See Below [facility] Work Phone: Comment on above: Reference Range: 0.0 0 - 0.70 Eosinophils/100 WBC (Bld) 7.2 % 0.0 - 6.0 [facility] Work Phone: Erythrocyte distribution width (RBC) [Ratio] 15.8 % above high threshold See Below [facility] Work Phone: Comment on above: Reference Range: 11. 5 - 14.5 Hematocrit (Bld) [Volume fraction] 35.0 % below low threshold See Below [facility] Work Phone: Comment on above: Reference Range: 36. 0 - 46.0 Hemoglobin (Bld) [Mass/Vol] 10.3 g/dL below low threshold See Below [facility] Work Phone: Comment on above: Reference Range: 12. 0 - 16.0 Lymphocytes (Bld) [#/Vol] 0.96 {x10E9/L} below low threshold See Below [facility] Work Phone: Comment on above: Reference Range: 1.2 0 - 4.80 Lymphocytes/100 WBC (Bld) 18.2 % See Below [facility] Work Phone: Comment on above: Reference Range: 13. 0 - 44.0 MCHC (RBC) [Mass/Vol] 29.4 g/dL below low threshold See Below [facility] Work Phone: Comment on above: Reference Range: 32. 0 - 36.0 MCV (RBC) [Entitic vol] 98 fL 80 - 100 [facility] Work Phone: Monocytes (Bld) [#/Vol] 0.38 {x10E9/L} See Below [facility] Work Phone: Comment on above: Reference Range: 0.1 0 - 1.00 Monocytes/100 WBC (Bld) 7.2 % 2.0 - 10.0 [facility] Work Phone: Neutrophils (Bld) [#/Vol] 3.51 {x10E9/L} See Below [facility] Work Phone: Comment on above: Reference Range: 1.2 0 - 7.70 Neutrophils/100 WBC (Bld) 66.4 % See Below [facility] Work Phone: Comment on above: Reference Range: 40. 0 - 80.0 Platelets (Bld) [#/Vol] 147 {x10E9/L} below low threshold 150 - 450 [facility] Work Phone: RBC (Bld) [#/Vol] 3.56 {x10E12/L} below low threshold See Below [facility] Work Phone: Comment on above: Reference Range: 4.0 0 - 5.20 WBC (Bld) [#/Vol] 5.3 {x10E9/L} 4.4 - 11.3 [facility] Work Phone: WBC (Bld) [#/Vol] 0.0 {/100_WBC} 0.0 - 0.0 [facility] Work Phone: Complete Blood Count + Differential 0.6 % 0.0 - 0.9 [facility] Work Phone: Comment on above: Immature Granulocyte Count (IG) includes promyelocytes, myelocytes and metamyelocytes but does not include bands. Percent differential counts (%) should be interpreted in the context of the absolute cell counts (cells/L). Hematologyon 08-09-2019 aPTT Coag (PPP) [Time] 45 {sec} above hig h threshold 28 - 38 [facility] Work Phone: Comment on above: THE APTT IS NO LONGE R USED FOR MONITORING UNFRACTIONATED HEPARIN THERAPY. FOR MONITORING HEPARIN THERAPY, USE THE HEPARIN ASSAY. INR Coag (PPP) [Relative time] 2.9 {INR} above high threshold 0.9 - 1.1 [facility] Work Phone: PT Coag (PPP) [Time] 33.3 {sec} above high threshold 9.7 - 12.7 [facility] Work Phone: Magnesium, Serumon 0 Magnesium [Mass/Vol] 1.81 mg/dL See Below [facility] Work Phone: Comment on above: Reference Range: 1.6 0 - 2.40 Magnesium [Mass/Vol] 1.82 mg/dL See Below [facility] Work Phone: Comment on above: Reference Range: 1.6 0 - 2.40 Metabolic Panelon 08-09-2019 Glucose [Mass/Vol] 181 mg/dL above high threshold 74 - 99 [facility] Work Phone: Glucose [Mass/Vol] 159 mg/dL above high threshold 74 - 99 [facility] Work Phone: Glucose [Mass/Vol] 147 mg/dL above high threshold 74 - 99 [facility] Work Phone: Anion gap [Moles/Vol] 7 mmol/L below low threshold 10 - 20 [facility] Work Phone: Calcium [Mass/Vol] 7.6 mg/dL below low threshold 8.6 - 10.3 [facility] Work Phone: Chloride [Moles/Vol] 103 mmol/L 98 - 107 [facility] Work Phone: CO2 [Moles/Vol] 36 mmol/L above high threshold 21 - 32 [facility] Work Phone: Creatinine [Mass/Vol] 0.81 mg/dL See Below [facility] Work Phone: Comment on above: Reference Range: 0.5 0 - 1.05 Glucose [Mass/Vol] 196 mg/dL above high threshold 74 - 99 [facility] Work Phone: Potassium [Moles/Vol] 3.3 mmol/L below low threshold 3.5 - 5.3 [facility] Work Phone: Sodium [Moles/Vol] 143 mmol/L 136 - 145 [facility] Work Phone: Urea nitrogen [Mass/Vol] 14 mg/dL 6 - 23 [facility] Work Phone: Glucose [Mass/Vol] 141 mg/dL above high threshold 74 - 99 [facility] Work Phone: Otheron 08-09-2019 >60 >60 [facility] Work Phone: Comment on above: CALCULATIONS OF YORDAN MATED GFR ARE PERFORMED USING THE MDRD STUDY EQUATION FOR THE IDMS-TRACEABLE CREATININE METHODS. CLIN CHEM 2007;53:766-72 [facility] Albumin BCP dye [Mass/Vol] 2.6 g/dL below low threshold 3.4 - 5.0 [facility] Work Phone: Anion gap [Moles/Vol] 12 mmol/L 10 - 20 [facility] Work Phone: Calcium [Mass/Vol] 7.8 mg/dL below low threshold 8.6 - 10.3 [facility] Work Phone: Chloride [Moles/Vol] 103 mmol/L 98 - 107 [facility] Work Phone: CO2 [Moles/Vol] 34 mmol/L above high threshold 21 - 32 [facility] Work Phone: Creatinine [Mass/Vol] 0.81 mg/dL See Below [facility] Work Phone: Comment on above: Reference Range: 0.5 0 - 1.05 Glucose [Mass/Vol] 130 mg/dL above high threshold 74 - 99 [facility] Work Phone: Phosphate [Mass/Vol] 3.2 mg/dL 2.5 - 4.9 [facility] Work Phone: Comment on above: The performance jeovanny acteristics of phosphorus testing in heparinized plasma have been validated by the individual laboratory site where testing is performed. Testing on heparinized plasma is not approved by the FDA; however, such approval is not necessary. Potassium [Moles/Vol] 3.3 mmol/L below low threshold 3.5 - 5.3 [facility] Work Phone: Sodium [Moles/Vol] 146 mmol/L above high threshold 136 - 145 [facility] Work Phone: Urea nitrogen [Mass/Vol] 16 mg/dL 6 - 23 [facility] Work Phone: Renal Function Panel >60 >60 [facility] Work Phone: Comment on above: CALCULATIONS OF YORDAN MATED GFR ARE PERFORMED USING THE MDRD STUDY EQUATION FOR THE IDMS-TRACEABLE CREATININE METHODS. CLIN CHEM 2007;53:766-72 Calcium, Ionized Levelon Calcium, Ionized Level 0.93 mmol/L below low threshold See Below [facility] Work Phone: Comment on above: Reference [...] Basophils (Bld) [#/Vol] 0.02 {x10E9/L} See Below [facility] Work Phone: Comment on above: Reference Range: 0.0 0 - 0.10 Basophils/100 WBC (Bld) 0.5 % 0.0 - 2.0 [facility] Work Phone: Eosinophils (Bld) [#/Vol] 0.24 {x10E9/L} See Below [facility] Work Phone: Comment on above: Reference Range: 0.0 0 - 0.70 Eosinophils/100 WBC (Bld) 5.7 % 0.0 - 6.0 [facility] Work Phone: Erythrocyte distribution width (RBC) [Ratio] 15.9 % above high threshold See Below [facility] Work Phone: Comment on above: Reference Range: 11. 5 - 14.5 Hematocrit (Bld) [Volume fraction] 34.6 % below low threshold See Below [facility] Work Phone: Comment on above: Reference Range: 36. 0 - 46.0 Hemoglobin (Bld) [Mass/Vol] 9.5 g/dL below low threshold See Below [facility] Work Phone: Comment on above: Reference Range: 12. 0 - 16.0 Lymphocytes (Bld) [#/Vol] 0.82 {x10E9/L} below low threshold See Below [facility] Work Phone: Comment on above: Reference Range: 1.2 0 - 4.80 Lymphocytes/100 WBC (Bld) 19.4 % See Below [facility] Work Phone: Comment on above: Reference Range: 13. 0 - 44.0 MCHC (RBC) [Mass/Vol] 27.5 g/dL below low threshold See Below [facility] Work Phone: Comment on above: Reference Range: 32. 0 - 36.0 MCV (RBC) [Entitic vol] 105 fL above high threshold 80 - 100 [facility] Work Phone: Monocytes (Bld) [#/Vol] 0.29 {x10E9/L} See Below [facility] Work Phone: Comment on above: Reference Range: 0.1 0 - 1.00 Monocytes/100 WBC (Bld) 6.9 % 2.0 - 10.0 [facility] Work Phone: Neutrophils (Bld) [#/Vol] 2.85 {x10E9/L} See Below [facility] Work Phone: Comment on above: Reference Range: 1.2 0 - 7.70 Neutrophils/100 WBC (Bld) 67.3 % See Below [facility] Work Phone: Comment on above: Reference Range: 40. 0 - 80.0 Platelets (Bld) [#/Vol] 90 {x10E9/L} below low threshold 150 - 450 [facility] Work Phone: RBC (Bld) [#/Vol] 3.31 {x10E12/L} below low threshold See Below [facility] Work Phone: Comment on above: Reference Range: 4.0 0 - 5.20 WBC (Bld) [#/Vol] 4.2 {x10E9/L} below low threshold 4.4 - 11.3 [facility] Work Phone: WBC (Bld) [#/Vol] 0.0 {/100_WBC} 0.0 - 0.0 [facility] Work Phone: Complete Blood Count + Differential 0.2 % 0.0 - 0.9 [facility] Work Phone: Comment on above: Immature Granulocyte Count (IG) includes promyelocytes, myelocytes and metamyelocytes but does not include bands. Percent differential counts (%) should be interpreted in the context of the absolute cell counts (cells/L). Hematologyon 08-08-2019 aPTT Coag (PPP) [Time] 23 {sec} below low threshold 28 - 38 [facility] Work Phone: Comment on above: THE APTT IS NO LONGE R USED FOR MONITORING UNFRACTIONATED HEPARIN THERAPY. FOR MONITORING HEPARIN THERAPY, USE THE HEPARIN ASSAY. INR Coag (PPP) [Relative time] 2.2 {INR} above high threshold 0.9 - 1.1 [facility] Work Phone: PT Coag (PPP) [Time] 24.3 {sec} above high threshold 9.7 - 12.7 [facility] Work Phone: Magnesium, Serumon 0 Magnesium [Mass/Vol] 1.87 mg/dL See Below [facility] Work Phone: Comment on above: Reference Range: 1.6 0 - 2.40 Metabolic Panelon 08-08-2019 Glucose [Mass/Vol] 151 mg/dL above high threshold 74 - 99 [facility] Work Phone: Glucose [Mass/Vol] 142 mg/dL above high threshold 74 - 99 [facility] Internal [facility] Work Phone: Glucose [Mass/Vol] 163 mg/dL above high threshold 74 - 99 [facility] Work Phone: Glucose [Mass/Vol] 143 mg/dL above high threshold 74 - 99 [facility] Work Phone: Otheron 08-08-2019 XR Knee 1 or 2 views Interpreted by: ISELA SHAFFER08/08/19 15:22MRN: [id number] Name: SALAZAR COYLE STUDY:KNEE; 1 OR 2 VIEWS; 08/08/2019 3:09 pm INDICATION:PAIN. COMPARISON:None. ORDERING CLINICIAN:GIULIANA ROYAL FINDINGS:Exam is limited due to suboptimal positioning on both views. There ntiphi-qm-nehn joint space narrowing with subchondral sclerosis andosteophyte formation involving the lateral compartment. No definitefracture or dislocation. IMPRESSION:Severe lateral compartment degenerative changes of the right knee.Limited exam. Electronically signed by: ENMANUEL SHAFFER 08/08/19 15:22 Normal [facility] Work Phone: Comment on above: Ordering Provider: Heike ROYAL [id number] Interpreted by: ARPITA CHANDRA08/08/19 10:06MRN: [id number] Name: SALAZAR COYLE STUDY:HIP, UNILATERAL W/PELVIS WHEN [...] signed by: ARPITA CHANDRA 08/08/19 10:06 Normal [facility] Work Phone: Comment on above: Ordering Provider: Kirsten SHUKLA [id number] Renal Function Panelon 08-07 Albumin BCP dye [Mass/Vol] 2.5 g/dL below low threshold 3.4 - 5.0 [facility] Work Phone: Anion gap [Moles/Vol] 12 mmol/L 10 - 20 [facility] Work Phone: Calcium [Mass/Vol] 7.8 mg/dL below low threshold 8.6 - 10.3 [facility] Work Phone: Chloride [Moles/Vol] 103 mmol/L 98 - 107 [facility] Work Phone: CO2 [Moles/Vol] 33 mmol/L above high threshold 21 - 32 [facility] Work Phone: Creatinine [Mass/Vol] 0.81 mg/dL See Below [facility] Work Phone: Comment on above: Reference Range: 0.5 0 - 1.05 Glucose [Mass/Vol] 144 mg/dL above high threshold 74 - 99 [facility] Work Phone: Phosphate [Mass/Vol] 3.2 mg/dL 2.5 - 4.9 [facility] Work Phone: Comment on above: The performance jeovanny acteristics of phosphorus testing in heparinized plasma have been validated by the individual laboratory site where testing is performed. Testing on heparinized plasma is not approved by the FDA; however, such approval is not necessary. Potassium [Moles/Vol] 3.7 mmol/L 3.5 - 5.3 [facility] Work Phone: Sodium [Moles/Vol] 144 mmol/L 136 - 145 [facility] Work Phone: Urea nitrogen [Mass/Vol] 19 mg/dL 6 - 23 [facility] Work Phone: Renal Function Panel >60 >60 [facility] Work Phone: Comment on above: CALCULATIONS OF YORDAN MATED GFR ARE PERFORMED USING THE MDRD STUDY EQUATION FOR THE IDMS-TRACEABLE CREATININE METHODS. CLIN CHEM 2007;53:766-72 Troponin I, Serumon 08-08-19 20 Troponin I.cardiac [Mass/Vol] 0.16 ng/mL Critically high See Below [facility] Work Phone: Comment on [...] is performed using different testing methodology at [facility] than at other [facility]. Direct result comparisons should only be made within the same method. Called- RB to dave frazier, 08/08/2019 09:14 Called- RB to glendy meng rn, 08/08/2019 09:14 Vancomycin Level, Randomon 0 08-08-2019 Vancomycin [Mass/Vol] 13.4 ug/mL [facility] Internal [facility] Work Phone: Comment on above: .Therapeutic Ranges: Peak: All ages: 30.0-40.0 ug/mL. Trough: Age <18y: 5.0-10.0 ug/mL. Age >/= 18y: 5.0-20.0 ug/mL. Vancomycin trough concentrations drawn immediately prior to the next dose at steady-state are preferred for monitoring patients treated with vancomycin. Ref.: Am J Health-Syst Pharm 66: 83-98, 2009. Ordering Provider: Lexy KINGSTON [id number] Calcium, Ionized Levelon Calcium, Ionized Level 1.02 mmol/L below low threshold See Below [facility] Work Phone: Comment on above: Reference Range: 1.1 0 - 1.33 The performance characteristics of ionized calcium tested in heparinized plasma or serum have been validated by the individual laboratory site where testing is performed. Testing on heparinized plasma or serum is not approved by the FDA; however, such approval is not necessary. Complete Blood Count + Diffe jonathanjordynallie 08-07-2019 Basophils (Bld) [#/Vol] 0.02 {x10E9/L} See Below [facility] Work Phone: Comment on above: Reference Range: 0.0 0 - 0.10 Basophils/100 WBC (Bld) 0.3 % 0.0 - 2.0 [facility] Work Phone: Eosinophils (Bld) [#/Vol] 0.18 {x10E9/L} See Below [facility] Work Phone: Comment on above: Reference Range: 0.0 0 - 0.70 Eosinophils/100 WBC (Bld) 2.7 % 0.0 - 6.0 [facility] Work Phone: Erythrocyte distribution width (RBC) [Ratio] 16.2 % above high threshold See Below [facility] Work Phone: Comment on above: Reference Range: 11. 5 - 14.5 Hematocrit (Bld) [Volume fraction] 34.2 % below low threshold See Below [facility] Work Phone: Comment on above: Reference Range: 36. 0 - 46.0 Hemoglobin (Bld) [Mass/Vol] 9.8 g/dL below low threshold See Below [facility] Work Phone: Comment on above: Reference Range: 12. 0 - 16.0 Lymphocytes (Bld) [#/Vol] 0.78 {x10E9/L} below low threshold See Below [facility] Work Phone: Comment on above: Reference Range: 1.2 0 - 4.80 Lymphocytes/100 WBC (Bld) 11.6 % See Below [facility] Work Phone: Comment on above: Reference Range: 13. 0 - 44.0 MCHC (RBC) [Mass/Vol] 28.7 g/dL below low threshold See Below [facility] Work Phone: Comment on above: Reference Range: 32. 0 - 36.0 MCV (RBC) [Entitic vol] 101 fL above high threshold 80 - 100 [facility] Work Phone: Monocytes (Bld) [#/Vol] 0.30 {x10E9/L} See Below [facility] Work Phone: Comment on above: Reference Range: 0.1 0 - 1.00 Monocytes/100 WBC (Bld) 4.4 % 2.0 - 10.0 [facility] Work Phone: Neutrophils (Bld) [#/Vol] 5.45 {x10E9/L} See Below [facility] Work Phone: Comment on above: Reference Range: 1.2 0 - 7.70 Neutrophils/100 WBC (Bld) 80.7 % See Below [facility] Work Phone: Comment on above: Reference Range: 40. 0 - 80.0 Platelets (Bld) [#/Vol] 122 {x10E9/L} below low threshold 150 - 450 [facility] Work Phone: RBC (Bld) [#/Vol] 3.39 {x10E12/L} below low threshold See Below [facility] Work Phone: Comment on above: Reference Range: 4.0 0 - 5.20 WBC (Bld) [#/Vol] 0.0 {/100_WBC} 0.0 - 0.0 [facility] Work Phone: WBC (Bld) [#/Vol] 6.8 {x10E9/L} 4.4 - 11.3 [facility] Work Phone: Complete Blood Count + Differential 0.3 % 0.0 - 0.9 [facility] Work Phone: Comment on above: Immature Granulocyte Count (IG) includes promyelocytes, myelocytes and metamyelocytes but does not include bands. Percent differential counts (%) should be interpreted in the context of the absolute cell counts (cells/L). Cult, Urineon 08-07-2019 Bacteria identified Cx Nom (U) PATIENT: SALAZAR COYLE LOCATION: [address] [id number] : 46 AGE: SEX: F ORDERED BY: MCKENZIE RIVERA: URINE COLLECTED: 08/07/19 17:02ANTIBIOTICS AT [place].: RECEIVED : 08/08/19 00:32SITE: [facility] R E S U [facility] T S URINE CULTURE,BACTERIAL FINAL 08/09/19 09:06 NO GROWTH [facility] Work Phone: Hematologyon 08-07-2019 aPTT Coag (PPP) [Time] 29 {sec} 28 - 38 [facility] Work Phone: Comment on above: THE APTT IS NO LONGE R USED FOR MONITORING UNFRACTIONATED HEPARIN THERAPY. FOR MONITORING HEPARIN THERAPY, USE THE HEPARIN ASSAY. INR Coag (PPP) [Relative time] 2.3 {INR} above high threshold 0.9 - 1.1 [facility] Work Phone: PT Coag (PPP) [Time] 26.2 {sec} above high threshold 9.7 - 12.7 [facility] Work Phone: Lipid Panelon 08-07-2019 Cholesterol [Mass/Vol] 107 mg/dL 0 - 199 [facility] Work Phone: Comment on above: . AGE [...] Cholesterol in HDL [Mass/Vol] 27.8 mg/dL Abnormal [facility] Internal [facility] Work Phone: Comment on above: . AGE VERY LOW LOW N ORMAL HIGH 0-19 Y < 35 < 40 40-45 ---- 20-24 Y ---- < 40 >45 ---- >24 Y ---- < 40 40-60 >60. Cholesterol in LDL [Mass/Vol] 57 mg/dL 0 - 99 [facility] Work Phone: Comment on above: . NEAR BORD AGE BEN RABLE OPTIMAL HIGH HIGH VERY HIGH 0-19 Y 0 - 109 --- 110-129 >/= 130 ---- 20-24 Y 0 - 119 --- 120-159 >/= 160 ---- >24 Y 0 - 99 100-129 130-159 160-189 >/=190. Cholesterol.total/Chol esterol in HDL [Mass ratio] 3.8 {ratio} [facility] Work Phone: Comment on above: REF VALUESDESIRABLE < 3.4HIGH RISK > 5.0 Triglyceride [Mass/Vol] 113 mg/dL 0 - 149 [facility] Work Phone: Comment on above: . AGE [...] Lipid Panel 23 mg/dL 0 - 40 [facility] Work Phone: Magnesium, Serumon 0 Magnesium [Mass/Vol] 1.87 mg/dL See Below [facility] Work Phone: Comment on above: Reference Range: 1.6 0 - 2.40 Metabolic Panelon 08-07-2019 Glucose [Mass/Vol] 189 mg/dL above high threshold 74 - 99 [facility] Work Phone: Glucose [Mass/Vol] 191 mg/dL above high threshold 74 - 99 [facility] Work Phone: Glucose [Mass/Vol] 168 mg/dL above high threshold 74 - 99 [facility] Work Phone: Glucose [Mass/Vol] 149 mg/dL above high threshold 74 - 99 [facility] Work Phone: Otheron 08-07-2019 490 1 [facility] Work Phone: [phone] [facility] Work Phone: [phone] [facility] Work Phone: [phone] [facility] Work Phone: [phone] [facility] Work Phone: [phone] [facility] Work Phone: [phone] [facility] Work Phone: [email or web address] [facility] Work Phone: [phone] 1 [facility] Work Phone: [phone] [facility] Work Phone: [phone] [facility] Work Phone: [phone] [facility] Work Phone: [phone] [facility] Work Phone: Sinus rhythm with premature atrial complexes [facility] Work Phone: [phone] [facility] Work Phone: [phone] [facility] Work Phone: Renal Function Panelon 08-06 Albumin BCP dye [Mass/Vol] 2.6 g/dL below low threshold 3.4 - 5.0 [facility] Work Phone: Anion gap [Moles/Vol] 9 mmol/L below low threshold 10 - 20 [facility] Work Phone: Calcium [Mass/Vol] 7.7 mg/dL below low threshold 8.6 - 10.3 [facility] Work Phone: Chloride [Moles/Vol] 103 mmol/L 98 - 107 [facility] Work Phone: CO2 [Moles/Vol] 35 mmol/L above high threshold 21 - 32 [facility] Work Phone: Creatinine [Mass/Vol] 0.93 mg/dL See Below [facility] Work Phone: Comment on above: Reference Range: 0.5 0 - 1.05 Glucose [Mass/Vol] 150 mg/dL above high threshold 74 - 99 [facility] Work Phone: Phosphate [Mass/Vol] 3.0 mg/dL 2.5 - 4.9 [facility] Work Phone: Comment on above: The performance jeovanny acteristics of phosphorus testing in heparinized plasma have been validated by the individual laboratory site where testing is performed. Testing on heparinized plasma is not approved by the FDA; however, such approval is not necessary. Potassium [Moles/Vol] 3.4 mmol/L below low threshold 3.5 - 5.3 [facility] Work Phone: Sodium [Moles/Vol] 144 mmol/L 136 - 145 [facility] Work Phone: Urea nitrogen [Mass/Vol] 24 mg/dL above high threshold 6 - 23 [facility] Work Phone: Renal Function Panel 59 {mL/min/1.73m2} Abnormal >60 [facility] Work Phone: Renal Function Panel 71 {mL/min/1.73m2} >60 [facility] Work Phone: Comment on above: CALCULATIONS OF YORDAN MATED GFR ARE PERFORMED USING THE MDRD STUDY EQUATION FOR THE IDMS-TRACEABLE CREATININE METHODS. CLIN CHEM 2007;53:766-72 Sedimentation Rate, Erythroc yteon 08-07-2019 ESR (Bld) [Velocity] 72 mm/h above high threshold 0 - 30 [facility] Work Phone: Vancomycin Level, Troughon 0 08-07-2019 Vancomycin trough [Mass/Vol] 31.1 ug/mL Critically high 5.0 - 20.0 [facility] Work Phone: Comment on above: Vancomycin levels sh ould be interpreted in conjunction with the dose, disease being treated, vancomycin JERRY, time of draw (trough concentrations should be obtained just before the next dose at steady-state), and other clinical information. Trough concentrations of 15-20 ug/mL are desired for severe infections. Ref.: Am J Health-Syst Pharm 66: 83-98, 2009. Called- RB to Gerald PRINCE [phone] AT 1150, 08/07/2019 11:51 Called- RB to Gerald SELBY [phone] AT 1150, 08/07/2019 11:51 Blood Gason 08-06-2019 HCO3 (Bld) [Moles/Vol] 39.3 mmol/L above hig h threshold See Below [facility] Work Phone: Comment on above: Reference Range: 22. 0 - 26.0 Ordering Provider: [place] [id number] Oxygen (Bld) [Partial pressure] 79 {mmHg} below low threshold 85 - 95 [facility] Work Phone: Comment on above: [place]: [place] [id number] HCO3 (Bld) [Moles/Vol] 40.8 mmol/L above hig h threshold See Below [facility] Work Phone: Comment on above: Reference Range: 22. 0 - 26.0 Ordering Provider: [place] [id number] Oxygen (Bld) [Partial pressure] 87 {mmHg} 85 - 95 [facility] Work Phone: Comment on above: [place]: [place] [id number] C Reactive Protein, Serumon 08-06-2019 CRP [Mass/Vol] 23.38 mg/dL Abnormal [facility] Work Phone: Comment on above: REF VALUE< 1.00 Calcium, Ionized Levelon Calcium, Ionized Level 1.03 mmol/L below low threshold See Below [facility] Work Phone: Comment on above: Reference [...] 1.01 mmol/L below low threshold See Below [facility] Work Phone: Comment on above: Reference Range: 1.1 0 - 1.33 The performance characteristics of ionized calcium tested in heparinized plasma or serum have been validated by the individual laboratory site where testing is performed. Testing on heparinized plasma or serum is not approved by the [facility]; however, such approval is not necessary. Complete Blood Count + Diffe rentialon 08-06-2019 Basophils (Bld) [#/Vol] 0.01 {x10E9/L} See Below [facility] Work Phone: Comment on above: Reference Range: 0.0 0 - 0.10 Basophils/100 WBC (Bld) 0.1 % 0.0 - 2.0 [facility] Work Phone: Eosinophils (Bld) [#/Vol] 0.00 {x10E9/L} See Below [facility] Work Phone: Comment on above: Reference Range: 0.0 0 - 0.70 Eosinophils/100 WBC (Bld) 0.0 % 0.0 - 6.0 [facility] Work Phone: Erythrocyte distribution width (RBC) [Ratio] 16.7 % above high threshold See Below [facility] Work Phone: Comment on above: Reference Range: 11. 5 - 14.5 Hematocrit (Bld) [Volume fraction] 39.4 % See Below [facility] Work Phone: Comment on above: Reference Range: 36. 0 - 46.0 Hemoglobin (Bld) [Mass/Vol] 11.3 g/dL below low threshold See Below [facility] Work Phone: Comment on above: Reference Range: 12. 0 - 16.0 Lymphocytes (Bld) [#/Vol] 0.61 {x10E9/L} below low threshold See Below [facility] Work Phone: Comment on above: Reference Range: 1.2 0 - 4.80 Lymphocytes/100 WBC (Bld) 5.8 % See Below [facility] Work Phone: Comment on above: Reference Range: 13. 0 - 44.0 MCHC (RBC) [Mass/Vol] 28.7 g/dL below low threshold See Below [facility] Work Phone: Comment on above: Reference Range: 32. 0 - 36.0 MCV (RBC) [Entitic vol] 101 fL above high threshold 80 - 100 [facility] Work Phone: Monocytes (Bld) [#/Vol] 0.33 {x10E9/L} See Below [facility] Work Phone: Comment on above: Reference Range: 0.1 0 - 1.00 Monocytes/100 WBC (Bld) 3.1 % 2.0 - 10.0 [facility] Work Phone: Neutrophils/100 WBC (Bld) 90.6 % See Below [facility] Work Phone: Comment on above: Reference Range: 40. 0 - 80.0 Platelets (Bld) [#/Vol] 144 {x10E9/L} below low threshold 150 - 450 [facility] Work Phone: RBC (Bld) [#/Vol] 3.90 {x10E12/L} below low threshold See Below [facility] Work Phone: Comment on above: Reference Range: 4.0 0 - 5.20 WBC (Bld) [#/Vol] 10.6 {x10E9/L} 4.4 - 11.3 [facility] Work Phone: WBC (Bld) [#/Vol] 0.0 {/100_WBC} 0.0 - 0.0 [facility] Work Phone: Complete Blood Count + Differential 9.61 {x10E9/L} above high threshold See Below [facility] Work Phone: Comment on above: Reference Range: 1.2 0 - 7.70 Complete Blood Count + Differential 0.4 % 0.0 - 0.9 [facility] Work Phone: Comment on above: Immature Granulocyte Count (IG) includes promyelocytes, myelocytes and metamyelocytes but does not include bands. Percent differential counts (%) should be interpreted in the context of the absolute cell counts (cells/L). Basophils (Bld) [#/Vol] 0.01 {x10E9/L} See Below [facility] Work Phone: Comment on above: Reference Range: 0.0 0 - 0.10 Basophils/100 WBC (Bld) 0.1 % 0.0 - 2.0 [facility] Work Phone: Eosinophils (Bld) [#/Vol] 0.00 {x10E9/L} See Below [facility] Work Phone: Comment on above: Reference Range: 0.0 0 - 0.70 Eosinophils/100 WBC (Bld) 0.0 % 0.0 - 6.0 [facility] Work Phone: Erythrocyte distribution width (RBC) [Ratio] 16.3 % above high threshold See Below [facility] Work Phone: Comment on above: Reference Range: 11. 5 - 14.5 Hematocrit (Bld) [Volume fraction] 40.5 % See Below [facility] Work Phone: Comment on above: Reference Range: 36. 0 - 46.0 Hemoglobin (Bld) [Mass/Vol] 11.6 g/dL below low threshold See Below [facility] Work Phone: Comment on above: Reference Range: 12. 0 - 16.0 Lymphocytes (Bld) [#/Vol] 0.66 {x10E9/L} below low threshold See Below [facility] Work Phone: Comment on above: Reference Range: 1.2 0 - 4.80 Lymphocytes/100 WBC (Bld) 5.6 % See Below [facility] Work Phone: Comment on above: Reference Range: 13. 0 - 44.0 MCHC (RBC) [Mass/Vol] 28.6 g/dL below low threshold See Below [facility] Work Phone: Comment on above: Reference Range: 32. 0 - 36.0 MCV (RBC) [Entitic vol] 102 fL above high threshold 80 - 100 [facility] Work Phone: Monocytes (Bld) [#/Vol] 0.37 {x10E9/L} See Below [facility] Work Phone: Comment on above: Reference Range: 0.1 0 - 1.00 Monocytes/100 WBC (Bld) 3.1 % 2.0 - 10.0 [facility] Work Phone: Neutrophils/100 WBC (Bld) 90.5 % See Below [facility] Work Phone: Comment on above: Reference Range: 40. 0 - 80.0 Platelets (Bld) [#/Vol] 155 {x10E9/L} 150 - 450 [facility] Work Phone: RBC (Bld) [#/Vol] 3.99 {x10E12/L} below low threshold See Below [facility] Work Phone: Comment on above: Reference Range: 4.0 0 - 5.20 WBC (Bld) [#/Vol] 0.0 {/100_WBC} 0.0 - 0.0 [facility] Work Phone: WBC (Bld) [#/Vol] 11.8 {x10E9/L} above high threshold 4.4 - 11.3 [facility] Work Phone: Complete Blood Count + Differential 10.70 {x10E9/L} above high threshold See Below [facility] Work Phone: Comment on above: Reference Range: 1.2 0 - 7.70 Complete Blood Count + Differential 0.7 % 0.0 - 0.9 [facility] Work Phone: Comment on above: Immature Granulocyte Count (IG) includes promyelocytes, myelocytes and metamyelocytes but does not include bands. Percent differential counts (%) should be interpreted in the context of the absolute cell counts (cells/L). Cult, Bloodon 08-06-2019 Bacteria identified Cx Nom (Bld) PATIENT: SALAZAR COYLE LOCATION: [address]#: [id number] : 46 AGE: SEX: F ORDERED BY: VANESSA LUIS: Blood COLLECTED: 08/06/19 11:03ANTIBIOTICS AT [place].: RECEIVED : 08/06/19 16:36SITE: PERIPHERAL PERIPHERAL R E S U L T S BLOOD CULTURE, BACTERIAL FINAL 08/11/19 17:42 No Growth at 1 days No Growth at 2 days No Growth at 3 days No Growth at 4 days NO GROWTH - FINAL REPORT left arm [facility] Work Phone: Bacteria identified Cx Nom (Bld) PATIENT: SALAZAR COYLE LOCATION: [facility] PBILL#: [id number] : 46 AGE: SEX: F ORDERED BY: VANESSA LUIS: Blood COLLECTED: 08/06/19 09:45ANTIBIOTICS AT ALBINO.: RECEIVED : 08/06/19 16:34SITE: PERIPHERAL R E S U L T S BLOOD CULTURE, BACTERIAL FINAL 08/11/19 17:42 No Growth at 1 days No Growth at 2 days No Growth at 3 days No Growth at 4 days NO GROWTH - FINAL REPORT right arm [facility] Work Phone: Bacteria identified Cx Nom (Bld) PATIENT: SALAZAR COYLE LOCATION: [facility] PBILL#: [id number] : 46 AGE: SEX: F ORDERED BY: ANTHONY CEJA: Blood COLLECTED: 08/06/19 05:10ANTIBIOTICS AT ALBINO.: RECEIVED : 08/06/19 08:18SITE: R E S U L T S BLOOD CULTURE, BACTERIAL FINAL 08/11/19 09:42 No Growth at 1 days No Growth at 2 days No Growth at 3 days No Growth at 4 days NO GROWTH - FINAL REPORT [facility] Work Phone: Cult, Urineon 08-06-2019 Bacteria identified Cx Nom (U) PATIENT: SALAZAR COYLE LOCATION: [facility] PBILL#: [id number] : 46 AGE: SEX: F ORDERED BY: ANTHONY CEJA: URINE COLLECTED: 08/06/19 02:12ANTIBIOTICS AT ALBINO.: RECEIVED : 08/06/19 09:02SITE: Jose Cath R E S U L T S URINE CULTURE,BACTERIAL FINAL 08/07/19 08:16 MULTIPLE ORGANISMS PRESENT, PROBABLE CONTAMINATION PLEASE REPEAT CULTURE. Abnormal [facility] Work Phone: Bacteria identified Cx Nom (U) PATIENT: SALAZAR COYLE LOCATION: [address]#: [id number] : 46 AGE: SEX: F ORDERED BY: ANTHONY CEJA: URINE COLLECTED: 08/06/19 02:12ANTIBIOTICS AT ALBINO.: RECEIVED : SITE: R E S U L T S URINE CULTURE,BACTERIAL CANCELLED 08/06/19 02:45 [facility] Work Phone: Comment on above: TEST URINE CULTURE,B ACTERIAL WAS CANCELLED, 08/06/2019 02:45 DUPLICATE ORDER. Hematologyon 08-06-2019 pH (Bld) 7.47 [pH] above high threshold See Below [facility] Work Phone: Comment on above: Reference Range: 7.3 8 - 7.42 Ordering Provider: [place] [address] aPTT Coag (PPP) [Time] 42 {sec} above hig h threshold 28 - 38 [facility] Work Phone: Comment on above: THE APTT IS NO LONGE R USED FOR MONITORING UNFRACTIONATED HEPARIN THERAPY. FOR MONITORING HEPARIN THERAPY, USE THE HEPARIN ASSAY. INR Coag (PPP) [Relative time] 2.4 {INR} above high threshold 0.9 - 1.1 [facility] Work Phone: PT Coag (PPP) [Time] 27.3 {sec} above high threshold 9.7 - 12.7 [facility] Work Phone: aPTT Coag (PPP) [Time] 48 {sec} above hig h threshold 28 - 38 [facility] Work Phone: Comment on above: THE APTT IS NO LONGE R USED FOR MONITORING UNFRACTIONATED HEPARIN THERAPY. FOR MONITORING HEPARIN THERAPY, USE THE HEPARIN ASSAY. INR Coag (PPP) [Relative time] 2.6 {INR} above high threshold 0.9 - 1.1 [facility] Work Phone: PT Coag (PPP) [Time] 29.3 {sec} above high threshold 9.7 - 12.7 [facility] Work Phone: Hematocrit (Bld) [Volume fraction] 38.0 % See Below [facility] Work Phone: Comment on above: Reference Range: 36. 0 - 46.0 Ordering Provider: [place] [id number] Hemoglobin (Bld) [Mass/Vol] 12.9 g/dL See Below [facility] Work Phone: Comment on above: Reference Range: 12. 0 - 16.0 Ordering Provider: Kirsten Boyd937 pH (Bld) 7.47 [pH] above high threshold See Below [facility] Work Phone: Comment on above: Reference Range: 7.3 8 - 7.42 Ordering Provider: [place] [address] Hemoglobin A1Con 08-06-2019 HbA1c (Bld) [Mass fraction] 6.5 % [facility] Work Phone: Comment on above: Diagnosis of Diabete s-Adults Non-Diabetic: < or = 5.6% Increased risk for developing diabetes: 5.7-6.4% Diagnostic of diabetes: > or = 6.5%. Monitoring of Diabetes Age (y) Therapeutic Goal (%) Adults: >18 <7.0 Pediatrics: 13-18 <7.5 7-12 <8.0 0- 6 7.5-8.5 [place] [employer]. Diabetes Care 33(S1), Apr 2009. HbA1c (Bld) [Mass fraction] 140 {MG/DL} [facility] Work Phone: Lactate, Levelon 08-06-2019 Lactate [Moles/Vol] 1.0 mmol/L 0.4 - 2.0 [facility] Work Phone: Comment on above: Venipuncture immedia tely after or during the administration of Metamizole may lead to falsely low results. Testing should be performed immediately prior to Metamizole dosing. Ordering Provider: [place] [address] Lactate [Moles/Vol] 2.4 mmol/L above high threshold 0.4 - 2.0 [facility] Work Phone: Comment on above: Venipuncture immedia tely after or during the administration of Metamizole may lead to falsely low results. Testing should be performed immediately prior to Metamizole dosing. Lactate [Moles/Vol] 2.0 mmol/L 0.4 - 2.0 [facility] Work Phone: Comment on above: Venipuncture immedia tely after or during the administration of Metamizole may lead to falsely low results. Testing should be performed immediately prior to Metamizole dosing. Ordering Provider: [place] [address] Lactate [Moles/Vol] 2.3 mmol/L above high threshold 0.4 - 2.0 [facility] Work Phone: Comment on above: Venipuncture immedia tely after or during the administration of Metamizole may lead to falsely low results. Testing should be performed immediately prior to Metamizole dosing. Legionella Antigen, Urineon 08-06-2019 L. pneumophila 1 Ag IA Ql (U) Negative Negative [facility] Work Phone: Comment on above: SOURCE: NEGATIVE FOR LEGIONELLA PNEUMOPHILIASEROGROUP 1 ANTIGEN IN URINE,SUGGESTING NO CURRENT OR PAST INFECTION. Magnesium, Serumon 0 Magnesium [Mass/Vol] 2.03 mg/dL See Below [facility] Work Phone: Comment on above: Reference Range: 1.6 0 - 2.40 Magnesium [Mass/Vol] 2.01 mg/dL See Below [facility] Work Phone: Comment on above: Reference Range: 1.6 0 - 2.40 Metabolic Panelon 08-06-2019 Glucose [Mass/Vol] 186 mg/dL above high threshold 74 - 99 [facility] Work Phone: Glucose [Mass/Vol] 177 mg/dL above high threshold 74 - 99 [facility] Work Phone: Comment on above: [place]: [place] [address] Glucose [Mass/Vol] 163 mg/dL above high threshold 74 - 99 [facility] Work Phone: Comment on above: Ordering Provider: Kirsten Rainey Glucose [Mass/Vol] 138 mg/dL above high threshold 74 - 99 [facility] Work Phone: Comment on above: Ordering Provider: Kirsten Rainey CO2 (Bld) [Partial pressure] 54 {mmHg} above high threshold 38 - 42 [facility] Work Phone: Comment on above: Ordering Provider: Kirsten Rainey Glucose [Mass/Vol] 161 mg/dL above high threshold 74 - 99 [facility] Work Phone: Comment on above: Ordering Provider: Kirsten Rainey Glucose [Mass/Vol] 159 mg/dL above high threshold 74 - 99 [facility] Work Phone: Comment on above: Ordering Provider: Kirsten Rainey Calcium.ionized (Bld) [Moles/Vol] 1.12 mmol/L See Below [facility] Work Phone: Comment on above: Reference Range: 1.1 0 - 1.33 Ordering Provider: Kirsten Rainey Chloride [Moles/Vol] 103 mmol/L 98 - 107 [facility] Work Phone: Comment on above: Ordering Provider: Kirsten Rainey CO2 (Bld) [Partial pressure] 56 {mmHg} above high threshold 38 - 42 [facility] Work Phone: Comment on above: Ordering Provider: Kirsten Rainey Glucose [Mass/Vol] 189 mg/dL above high threshold 74 - 99 [facility] Work Phone: Comment on above: Ordering Provider: Kirsten Rainey Lactate [Moles/Vol] 0.9 mmol/L 0.4 - 2.0 [facility] Work Phone: Comment on above: Ordering Provider: Kirsten Rainey Potassium [Moles/Vol] 3.7 mmol/L 3.5 - 5.3 [facility] Work Phone: Comment on above: Ordering Provider: Kirsten Rainey Sodium [Moles/Vol] 145 mmol/L 136 - 145 [facility] Work Phone: Comment on above: [place] [address] Otheron 08-06-2019 XR Foot 2 views Interpreted by: HARRIET CARTER08/06/19 13:31MRN: [id number] Name: SALAZAR COYLE STUDY:FOOT, 2 VIEWS; 08/06/2019 [...] signed by: SARAH CARTER 08/06/19 13:31 Normal [facility] Work Phone: Interpreted by: ARPITA CHANDRA08/06/19 08:40MRN: [id number] Name: ADELAIDASALAZAR GASPAR STUDY:CHEST 1 VIEW; 08/06/2019 5:50 am INDICATION:RESP [...] signed by: ARPITA CHANDRA 08/06/19 08:40 Normal [facility] Work Phone: Arterial patency Wrist artery --pre arterial puncture Positive [facility] Work Phone: Comment on above: [place]: [place] [address] Inhaled oxygen concentration 30 % 21 - 100 [facility] Work Phone: Comment on above: Ordering Provider: Kirsten Rainey 6.9 {Liter} [facility] Work Phone: Comment on above: Ordering Provider: Kirsten Rainey 8.0 {cm_H2O} [facility] Work Phone: Comment on above: Ordering Provider: Kirsten Rainey L Radial [facility] Work Phone: Comment on above: Ordering Provider: Kirsten Rainey 13.3 mmol/L above high threshold -2.0 - 3.0 [facility] Work Phone: Comment on above: Ordering Provider: Kirsten Rainey 10 {bpm} [facility] Work Phone: Comment on above: Ordering Provider: Kirsten Rainey 98 % 94 - 100 [facility] Work Phone: Comment on above: Ordering Provider: Kirsten Rainey BiPAP [facility] Work Phone: Comment on above: Ordering Provider: Kirsten Rainey 17 {bpm} [facility] Work Phone: Comment on above: Ordering Provider: Kirsten Rainey 18.0 {cm_H2O} [facility] Work Phone: Comment on above: Ordering Provider: Kirsten Rainey S. pneumoniae Ag Ql (U) Negative Negative [facility] Work Phone: Comment on above: INTERPRETIVE INFORMA TION: Streptococcus pneumoniae Ag, UrineFalse-positives may occur because of cross-reactivity with other members of the S. mitis group. Clinical correlation is recommended.Performed by [employer],[address] [place] [id number] [address]po[employer], Yaron Mayberry MD, Lab. Director Anion gap (Bld) [Moles/Vol] 5 mmol/L below low threshold 10 - 25 [facility] Work Phone: Comment on above: Ordering Provider: Kirsten Rainey Arterial patency Wrist artery --pre arterial puncture Positive [facility] Work Phone: Comment on above: Ordering Provider: Kirsten Rainey Inhaled oxygen concentration 35 % 21 - 100 [facility] Work Phone: Comment on above: Ordering Provider: Kirsten Rainey 7.0 {cm_H2O} [facility] Work Phone: Comment on above: Ordering Provider: Kirsten Rainey 98 % 94 - 100 [facility] Work Phone: Comment on above: Ordering Provider: Kirsten Rainey 500 mL [facility] Work Phone: Comment on above: Ordering Provider: Kirsten Rainey 15.0 {cm_H2O} [facility] Work Phone: Comment on above: Ordering Provider: Kirsten Rainey 14.6 mmol/L above high threshold -2.0 - 3.0 [facility] Work Phone: Comment on above: Ordering Provider: Kirsten Rainey R Brachial [facility] Work Phone: Comment on above: Ordering Provider: Kirsten Rainey BiPAP [facility] Work Phone: Comment on above: Ordering Provider: Kirsten Rainey Phosphorus, Serumon 08-06-19 20 Phosphate [Mass/Vol] 3.5 mg/dL 2.5 - 4.9 [facility] Work Phone: Comment on above: The performance jeovanny acteristics of phosphorus testing in heparinized plasma have been validated by the individual laboratory site where testing is performed. Testing on heparinized plasma is not approved by the FDA; however, such approval is not necessary. Renal Function Panelon 08-05 Albumin BCP dye [Mass/Vol] 3.0 g/dL below low threshold 3.4 - 5.0 [facility] Work Phone: Anion gap [Moles/Vol] 11 mmol/L 10 - 20 [facility] Work Phone: Calcium [Mass/Vol] 8.5 mg/dL below low threshold 8.6 - 10.3 [facility] Work Phone: Chloride [Moles/Vol] 103 mmol/L 98 - 107 [facility] Work Phone: CO2 [Moles/Vol] 38 mmol/L above high threshold 21 - 32 [facility] Work Phone: Creatinine [Mass/Vol] 1.08 mg/dL above high threshold See Below [facility] Work Phone: Comment on above: Reference Range: 0.5 0 - 1.05 Glucose [Mass/Vol] 167 mg/dL above high threshold 74 - 99 [facility] Work Phone: Phosphate [Mass/Vol] 3.1 mg/dL 2.5 - 4.9 [facility] Work Phone: Comment on above: The performance jeovanny acteristics of phosphorus testing in heparinized plasma have been validated by the individual laboratory site where testing is performed. Testing on heparinized plasma is not approved by the FDA; however, such approval is not necessary. Potassium [Moles/Vol] 4.1 mmol/L 3.5 - 5.3 [facility] Work Phone: Sodium [Moles/Vol] 148 mmol/L above high threshold 136 - 145 [facility] Work Phone: Urea nitrogen [Mass/Vol] 25 mg/dL above high threshold 6 - 23 [facility] Work Phone: Renal Function Panel 50 {mL/min/1.73m2} Abnormal >60 [facility] Work Phone: Renal Function Panel 61 {mL/min/1.73m2} >60 [facility] Work Phone: Comment on above: CALCULATIONS OF YORDAN MATED GFR ARE PERFORMED USING THE MDRD STUDY EQUATION FOR THE IDMS-TRACEABLE CREATININE METHODS. CLIN CHEM 2007;[id number] Troponin I, Serumon 08-06-19 20 Troponin I.cardiac [Mass/Vol] 1.27 ng/mL Critically high See Below [facility] Work Phone: Comment on [...] is performed using different testing methodology at [facility] than at other [facility]. Direct result comparisons should only be made within the same method. Called- RB to HANNA RN, 08/06/2019 06:17 Called- RB to YANG HERNANDEZ RN, 08/06/2019 06:17 Troponin I.cardiac [Mass/Vol] 1.35 ng/mL Critically high See Below [facility] Work Phone: Comment on above: Reference [...] is performed using different testing methodology at [facility] than at other [facility]. Direct result comparisons should only be made within the same method. Called- RB to HANNA RN, 08/06/2019 03:07 Called- RB to YANG LT RN, 08/06/2019 03:07 Troponin I.cardiac [Mass/Vol] 1.27 ng/mL Critically high See Below [facility] Work Phone: Comment on [...] is performed using different testing methodology at [facility] than at other [facility]. Direct result comparisons should only be made within the same method. Called- RB to HANNA RN, 08/06/2019 00:26 Called- RB to YANG HERNANDEZ RN, 08/06/2019 00:26 Urinalysison 08-06-2019 Appearance (U) HAZY CLEAR [facility] Work Phone: Color (U) YELLOW See Below [facility] Work Phone: Comment on above: Reference Range: STR AW,YELLOWThis is a corrected result. Previous value was RED, verified at 08/06/2019 02:44 Glucose Ql (U) Negative NEGATIVE [facility] Work Phone: Ketones Ql (U) Negative NEGATIVE [facility] Work Phone: Leukocyte esterase Test strip Ql (U) SMALL (1+) Abnormal NEGATIVE [facility] Work Phone: pH (U) 5.0 [pH] 5.0 - 8.0 [facility] Work Phone: Protein (U) [Mass/Vol] Negative NEGATIVE [facility] Work Phone: RBC (U) [#/Vol] SMALL (1+) Abnormal NEGATIVE [facility] Work Phone: Specific gravity (U) [Rel density] 1.011 1 See Below [facility] Work Phone: Comment on above: Reference Range: 1.0 05 - 1.035 Urinalysis <2.0 0.0 - 1.9 [facility] Work Phone: Urinalysis Negative NEGATIVE [facility] Work Phone: Urinalysis, Microscopicon Bacteria LM.HPF (Urine sed) [#/Area] 3+ Abnormal [facility] Work Phone: RBC (Bld) [#/Vol] 0-5 0-5 [facility] Work Phone: Urinalysis, Microscopic 1+ [facility] Work Phone: Urinalysis, Microscopic 21-51 Abnormal 0-5 [facility] Work Phone: BLOOD CULTURE,BIOFIRE FILMAR Sachi 08-05-2019 S. pyogenes DNA EZIO+probe Ql (Throat) NOT DETECTED See Below [facility] Work Phone: Comment on above: Reference Range: NOT DETECTED Called- RB to yon telakowicz, 08/06/2019 10:10Ordering Provider: GAMAL Bear BLOOD CULTURE,BIOFIRE FILMARRAY NOT DETECTED See Below [facility] Work Phone: Comment on above: Reference Range: NOT DETECTED Called- RB to yon telakowicz, 08/06/2019 10:10Ordering Provider: GAMAL Bear BLOOD CULTURE,BIOFIRE FILMARRAY DETECTED Critically abnormal See Below [facility] Work Phone: Comment on above: Reference Range: NOT DETECTED Called- RB to yon telakowicz, 08/06/2019 10:10 Called- RB to yon telakowicz, 08/06/2019 10:10Ordering Provider: GAMAL Bear BLOOD CULTURE,BIOFIRE FILMARRAY PERIPHERAL See Below [facility] Work Phone: Comment on above: SOURCE: Called- RB to ER sta cy telakowicz, 08/06/2019 10:08Ordering Provider: GAMAL Bear SOURCE: Reference Ra nge: NOT DETECTED Called- RB to yon telakowicz, 08/06/2019 10:10Ordering Provider: GAMAL Bear [facility]acon 08-05-2019 Natriuretic peptide B (Bld) [Mass/Vol] 1264 pg/mL above high threshold 0 - 99 [facility] Work Phone: Comment on above: . <100 pg/mL - Heart failure skcciqgw128-141 pg/mL - Intermediate probability of acute heart. failure exacerbation. Correlate with clinical. context and patient history. >=300 pg/mL - Heart Failure likely. Correlate with clinical. context and patient history.BNP testing is performed using different testing methodology at [facility] than at other [facility]. Direct result comparisons should only be made within the same method. Ordering Provider: Hakan HAD LINDSAY 30[address] Complete Blood Count + Diffe rentialon 08-05-2019 Erythrocyte distribution width (RBC) [Ratio] 17.7 % above high threshold See Below [facility] Work Phone: Comment on above: Reference Range: 11. 5 - 14.5 Ordering Provider: Hakan HAD LINDSAY 41824 Hematocrit (Bld) [Volume fraction] 37.4 % See Below [facility] Work Phone: Comment on above: Reference Range: 36. 0 - 46.0 Ordering Provider: C HAD LINDSAY 24171 Hemoglobin (Bld) [Mass/Vol] 11.8 g/dL below low threshold See Below [facility] Work Phone: Comment on above: Reference Range: 12. 0 - 16.0 Ordering Provider: C HAD LINDSAY 39967 MCHC (RBC) [Mass/Vol] 31.5 g/dL below low threshold See Below [facility] Work Phone: Comment on above: Reference Range: 32. 0 - 36.0 Ordering Provider: Hakan HAD LINDSAY 95918 MCV (RBC) [Entitic vol] 93 fL 80 - 100 [facility] Work Phone: Comment on above: Ordering Provider: Hakan HAD LINDSAY 46375 Platelets (Bld) [#/Vol] 158 {x10E9/L} 150 - 450 [facility] Work Phone: Comment on above: Ordering Provider: C HAD LINDSAY 05133 RBC (Bld) [#/Vol] 4.02 {x10E12/L} See Below [facility] Work Phone: Comment on above: Reference Range: 4.0 0 - 5.20 Ordering Provider: C HAD LINDSAY 94094 WBC (Bld) [#/Vol] 12.0 {x10E9/L} above high threshold 4.4 - 11.3 [facility] Work Phone: Comment on above: Ordering Provider: C HAD LINDSAY 55916 WBC (Bld) [#/Vol] 0.1 {/100_WBC} [facility] Work Phone: Comment on above: Ordering Provider: C HAD LINDSAY 28955 Complete Blood Count + Differential SEE MANUAL DIFF [facility] Work Phone: Comment on above: Ordering Provider: C HAD LINDSAY 02629 Coronavirus 2019 by PCRon Coronavirus 2019 by PCR NOT DETECTED See Below [facility] Work Phone: Comment on above: SOURCE: Nasal, [...] this test method. Fact sheet for providers: www.fda.gov/media/251849/downloadFact sheet for patients: www.fda.gov/media/224039/downloadThis test has received FDA Emergency Use Authorization (EUA) and has been verified by [facility]. This test is only authorized for the duration of time that circumstances exist to justify the authorization of the emergency use of in vitro diagnostic tests for the detection of SARS-CoV-2 virus and/or diagnosis of COVID-19 infection under section 564(b)(1) of the Act, 21 U.S.C. 360bbb-3(b)(1), unless the authorization is terminated or revoked sooner. [facility] is certified under CLIA-88 as qualified to perform high complexity testing. Testing is performed in the [facility] laboratory located at [address] [place] [address]. Called- RB to Katie Carbone , 08/05/2019 18:15 Called- RB to Katie souza , 08/05/2019 18:15Ordering Provider: GAMAL MONTOYA 66161 Hematologyon 08-05-2019 Band form neutrophils/100 WBC (Bld) 6.0 % 0.0 - 5.0 [facility] Work Phone: Comment on above: Ordering Provider: Hakan HAD LINDSAY 48243 Basophils (Bld) [#/Vol] 0.00 {x10E9/L} See Below [facility] Work Phone: Comment on above: Reference Range: 0.0 0 - 0.10 Ordering Provider: Hakan HAD LINDSAY 25964 Basophils/100 WBC (Bld) 0.0 % 0.0 - 2.0 [facility] Work Phone: Comment on above: Ordering Provider: C HAD LINDSAY 92862 Eosinophils (Bld) [#/Vol] 0.00 {x10E9/L} See Below [facility] Work Phone: Comment on above: Reference Range: 0.0 0 - 0.70 Ordering Provider: Hakan HAD LINDSAY 58225 Eosinophils/100 WBC (Bld) 0.0 % 0.0 - 6.0 [facility] Work Phone: Comment on above: Ordering Provider: C HAD LINDSAY 33719 Lymphocytes (Bld) [#/Vol] 0.84 {x10E9/L} below low threshold See Below [facility] Work Phone: Comment on above: Reference Range: 1.2 0 - 4.80 Ordering Provider: C HAD LINDSAY 38945 Lymphocytes/100 WBC (Bld) 7.0 % See Below [facility] Work Phone: Comment on above: Reference Range: 13. 0 - 44.0 Ordering Provider: C HAD LINDSAY 77958 Monocytes (Bld) [#/Vol] 0.12 {x10E9/L} See Below [facility] Work Phone: Comment on above: Reference Range: 0.1 0 - 1.00 Ordering Provider: C HAD LINDSAY 25776 Monocytes/100 WBC (Bld) 1.0 % 2.0 - 10.0 [facility] Work Phone: Comment on above: Ordering Provider: C HAD LINDSAY 23080 Lactate, Levelon 08-05-2019 Lactate [Moles/Vol] 1.8 mmol/L 0.4 - 2.0 [facility] Work [facility]: Comment on above: Venipuncture immedia tely after or during the administration of Metamizole may lead to falsely low results. Testing should be performed immediately prior to Metamizole dosing. Ordering Provider: C HAD LINDSAY 44862 Metabolic Panelon 08-05-2019 Anion gap [Moles/Vol] 9 mmol/L below low threshold 10 - 20 [facility] Work Phone: Comment on above: Ordering Provider: C HAD LINDSAY 67720 Calcium [Mass/Vol] 8.5 mg/dL below low threshold 8.6 - 10.3 [facility] Work Phone: Comment on above: Ordering Provider: C HAD LINDSAY 70022 Chloride [Moles/Vol] 103 mmol/L 98 - 107 [facility] Work Phone: Comment on above: Ordering Provider: C HAD LINDSAY 26210 CO2 [Moles/Vol] 39 mmol/L above high threshold 21 - 32 [facility] Work Phone: Comment on above: Ordering Provider: C HAD LINDSAY 17933 Creatinine [Mass/Vol] 0.98 mg/dL See Below [facility] Internal Medicine Work Phone: Comment on above: Reference Range: 0.5 0 - 1.05 Ordering Provider: C HAD LINDSAY 87098 Glucose [Mass/Vol] 178 mg/dL above high threshold 74 - 99 [facility] Internal Medicine Work Phone: Comment on above: Ordering Provider: C HAD LINDSAY 77734 Potassium [Moles/Vol] 4.3 mmol/L 3.5 - 5.3 [facility] Medicine Work Phone: Comment on above: Ordering Provider: C HAD LINDSAY 85486 Sodium [Moles/Vol] 147 mmol/L above high threshold 136 - 145 [facility] Medicine Work Phone: Comment on above: Ordering Provider: C HAD LINDSAY 46482 Urea nitrogen [Mass/Vol] 23 mg/dL 6 - 23 [facility] Internal [facility] Work Phone: Comment on above: Ordering Provider: C HAD LINDSAY 39292 Otheron 08-05-2019 Segmented neutrophils/100 WBC (Bld) 86.0 % See Below [facility] Work Phone: Comment on above: Reference Range: 40. 0 - 80.0 Percent differential counts (%) should be interpreted in the context of the absolute cell counts (cells/L). Ordering Provider: C HAD LINDSAY 71901 11.04 {x10E9/L} above high threshold See Below [facility] Internal [facility] Work Phone: Comment on above: Reference Range: 1.2 0 - 7.70 Ordering Provider: C HAD LINDSAY 25749 10.32 {x10E9/L} above high threshold See Below [facility] Internal [facility] Work Phone: Comment on above: Reference Range: 1.2 0 - 7.00 Ordering Provider: C HAD LINDSAY 94530 0.72 {x10E9/L} above high threshold See Below [facility] Internal [facility] Work Phone: Comment on above: Reference Range: 0.0 0 - 0.70 Ordering Provider: C HAD LINDSAY 10133 NORMAL [facility] Work Phone: Comment on above: Ordering Provider: C HAD LINDSAY 27817 56 {mL/min/1.73m2} Abnormal >60 [facility] Work Phone: Comment on above: Ordering Provider: C HAD LINDSAY 92125 68 {mL/min/1.73m2} >60 [facility] Work Phone: Comment on above: CALCULATIONS OF YORDAN MATED GFR ARE PERFORMED USING THE MDRD STUDY EQUATION FOR THE IDMS-TRACEABLE CREATININE METHODS. CLIN CHEM 2007;53:766-72 Ordering Provider: Hakan MONTOYA 42087 GROWTH Critically abnormal No Growth [facility] Work Phone: Comment on above: Positive Blood Cultu re. Sample will be analyzed on the Teamer.net for PreliminaryIdentification and will be sent to [facility] Microbiology Department at [facility] for confirmatory identification and susceptibility. See Blood Culture Biofire FilmArray and Blood Culture,Referred for results.gram negative bacilli Called- RB to ER yon walden, 08/06/2019 10:08 Called- RB to ER jai walden, 08/06/2019 10:08Ordering Provider: GAMAL MONTOYA 53487 PATIENT: Carmella COYLE LOCATION: [facility]#: [id number] : 46 AGE: SEX: F ORDERED BY: [...] DOSE DEPENDENT NS=NONSUSCEPTIBLEX=REPORTE D IN ERROR Abnormal [facility] Internal [facility] Work Phone: Comment on above: Ordering Provider: Hakan Bear Interpreted by: ANDRÉS FISHER08/05/19 16:09MRN: [id number] Name: SALAZAR COYLE STUDY:CHEST 1 VIEW; 08/05/2019 [...] signed by: VINICIUS FISHER 08/05/19 16:09 Normal [facility] Internal Medicine Work Phone: Comment on above: Ordering Provider: Hakan Elias247 108 1 [facility] Internal Medicine Work Phone: Comment on above: Ordering Provider: Hakan Elias247 442 1 [facility] Medicine Work Phone: Comment on above: Ordering Provider: Hakan Bear 183 1 [facility] Medicine Work Phone: Comment on above: Ordering Provider: C had Clio 35965 [id number] [facility] Internal Medicine Work Phone: Comment on above: Ordering Provider: C had Lindsay 97880 133 1 [facility] Medicine Work Phone: Comment on above: Ordering Provider: C had Lindsay 13718 219 1 [facility] Medicine Work Phone: Comment on above: Ordering Provider: C had Lindsay 74845 9 1 [facility] Medicine Work Phone: Comment on above: Ordering Provider: C had Clio 24232 59 1 [facility] Medicine Work Phone: Comment on above: Ordering Provider: C had Lindsay 55837 443 1 [facility] Medicine Work Phone: Comment on above: Ordering Provider: C had Clio 09933 "Please see physicia n note for formal interpretation confirmed by Scribe" [facility] Work Phone: Comment on above: Ordering Provider: C had Lindsay 25012 73 1 [facility] Medicine Work Phone: Comment on above: Ordering Provider: C had Lindsay 38334 441 1 [facility] Medicine Work Phone: Comment on above: Ordering Provider: C had Clio 25221 446 1 [facility] Medicine Work Phone: Comment on above: Ordering Provider: C had Lindsay 66811 114 1 [facility] Medicine Work Phone: Comment on above: Ordering Provider: C had Clio 35323 172 1 [facility] Medicine Work Phone: Comment on above: Ordering Provider: C had Clio 63011 -19 1 [facility] Medicine Work Phone: Comment on above: Ordering Provider: C had Lindsay 39208 Troponin I, Serumon 08-05-19 20 Troponin I.cardiac [Mass/Vol] 1.35 ng/mL Critically high See Below [facility] Medicine Work Phone: Comment on [...] is performed using different testing methodology at [facility] than at other [facility]. Direct result comparisons should only be made within the same method. Troponin [facility] , 08/05/2019 17:19 Troponin Called- RB to [facility] , 08/05/2019 17:19Ordering Provider: GAMAL MONTOYA 01714 Hematologyon 07-20-2019 INR Coag (PPP) [Relative time] 2.9 {INR} above high threshold 0.9 - 1.1 [facility] Medicine Work Phone: PT Coag (PPP) [Time] 33.8 {sec} above high threshold 9.7 - 12.7 [facility] Medicine Work Phone: PROGRESSon 12-30-2018 PROGRESS HNO ID: [id number] Author: Ladonna Martell Service: ? Author Type: [...] - Osteoarthritis - PAF (paroxysmal atrial fibrillation) ([facility]) - Rotator cuff tear - Skin ulcers (HCC) Back, left side - Stroke ([facility]) - Type 2 diabetes mellitus with hyperglycemia ([facility]) - UTI (urinary tract infection) PAST SURGICAL [...] nourished., Morbidly obese and confined to a [facility] Skin: Skin color, texture, turgor normal, no [...] or fail to improve. Ladonna Martell MD [facility] 12-25-2018 CNOV Office Visit (AGPOB1 ) -- SALAZAR COYLE ([id number]) 1950 F Date Time Provider Department 12/25/18 3:00 PM LADONNA MARTELL AGPOB1 During your visit today, we recorded the [...] - Osteoarthritis - PAF (paroxysmal atrial fibrillation) ([facility]) - Rotator cuff tear - Skin ulcers ([facility]) Back, left side - Stroke ([facility]) - Type 2 diabetes mellitus with hyperglycemia ([facility]) - UTI (urinary tract infection) PAST SURGICAL [...] nourished., Morbidly obese and confined to a [facility] Skin: Skin color, texture, turgor normal, no [...] Known Allergies) Date Reviewed: 12/25/2018 Reviewed by: Tamara (Fredrick) Enid - Fully Assessed Reason for Visit: Established Patient [175] Cmt: right and lower part of body Primary Visit Diagnosis:Right knee pain, unspecified chronicity [M25.561] Other Visit Diagnoses:Morbid obesity (HCC) [E66.01] Primary osteoarthritis involving multiple joints [M15.0] Acute right-sided low back pain with sciatica, sciatica laterality unspecified [M54.40] Order(s):XR KNEE POST OP 3V AP/LAT/MERCHANT RT [[id number]] Order #: [id number] Prescriptions as of 12/25/2018 Sig: MORPHINE ER [...] encounter DULOXETINE 60 MG CAPSULE,DELAYED RELEASE >> Tamara Baer LPN 12/25/2018 3:21 PM >> [facility] SEWE[facility] Dec 25, 2018 3:21 PM Not on current med list for [facility]. AMITRIPTYLINE 25 MG TABLET >> Tamara Baer LPN 12/25/2018 3:20 PM >> [facility] Dec 25, 2018 3:20 PM Not on current med list for [facility]. MICONAZOLE NITRATE 2 % TOPICAL CREAM >> Tamara Baer LPN 12/25/2018 3:23 PM >> [facility] Dec 25, 2018 3:23 PM Not on current med list for [facility]. Problem List As Of Date 12/25/2018 Noted Resolved Degenerative disc disease, cervical [M50.30] INVALID FOR* Degenerative lumbar disc [M51.36] INVALID FOR* Spondylosis of cervical region without myelopat*INVALID FOR* Osteoarthritis of spine with radiculopathy, lum*INVALID FOR* Type 2 diabetes mellitus with hyperglycemia (HC* More... Wounds, multiple [T07.XXXA] INVALID FOR* PAF (paroxysmal atrial fibrillation) ([facility]) [I48* Osteoarthritis [M19.90] Hypertension [I10] Hyperlipemia [E78.5] Foot ulcer ([facility]) [L97.509] Altered mental status [R41.82] INVALID FOR*10/30/2017 TIA (transient ischemic attack) [G45.9] INVALID FOR* BMI 60.0-69.9, adult ([facility]) [Z68.44] INVALID FOR* Stroke ([facility]) [I63.9] INVALID FOR* Patient noncompliant with anticoagulant medicat*INVALID FOR* Chronic pain [G89.29] INVALID FOR* Cellulitis [L03.90] INVALID FOR* Morbid obesity with BMI of 70 and over, adult (*INVALID FOR* Septic shock ([facility]) [A41.9, R65.21] INVALID FOR* WHITLEY (acute kidney injury) ([facility]) [N17.9] INVALID FOR* Acute encephalopathy [G93.40] INVALID FOR* Retention of urine [R33.9] INVALID FOR* Recurrent UTI [N39.0] INVALID FOR* Bladder spasms [N32.89] INVALID FOR* Disposition: Return if symptoms worsen or fail to improve. Follow-up and Disposition History Recorded Encounter Status:Closed by LADONNA MARTELL MD on 12/29/18 [facility] PROGRESSon 12-25-2018 PROGRESS HNO ID: [id number] Author: Ladonna Martell Service: ? Author Type: [...] Negative for excessive bleeding, clots, bleeding disorders. [facility] CNOVon 12-19-2018 CNOV Office Visit (UROLAE ) -- SALAZAR COYLE ([id number]) 1950 F Date Time Provider Department 12/19/18 10:00 AM ABDI LERNER (GUS) [place] During your visit today, we recorded the following information about you: Weight Height 192.8 kg 1.651 m Abdi Lerner APRN.CNP 12/19/2018 11:58 AM Signed NEW PATIENT HISTORY AND PHYSICAL EXAM HISTORY OF PRESENT ILLNESS Patient presents with: Jose Cath Problem Salazar Sonbriseyda is a 68 year old female who presents today as a new patient. Patient with a h/o neurogenic bladder, recurrent bladder infections, urinary retention. H/o CVA, non ambulatory at this time, BM >70. Patient resides at [facility]. She has had a chronic jose catheter [...] Urine (mg/dL) Date Value 08/16/2018 NEGATIVE Specific Linn, Ur (no units) Date Value 08/16/2018 1.021 [...] change in bowel habits. GENITOURINARY: See HPI. BILLING CLERK: Negative for abnormal vaginal bleeding, abnormal vaginal [...] Glucose (mg/dL) is:Less than 110 Give 0 temvh467-851 Give 0 jtfao905-918 Give 2 -397 Give 4 opcyw337-617 Give 6 ysgaj632-799 Give 8 tobkj166-964 Give 10 unitsGreater than 400 Give 10 [...] - ICD9: 596.89, ICD10: N32.89 Abdi Lerner APRN.GUS Lerner APRN.CNP 12/19/2018 10:45 AM Signed Please [...] again in April. Referring Provider: JEFERSON MADISON [[id number]] Allergies As of Date: 12/19/2018 (No Known Allergies) Date Reviewed: 12/19/2018 Reviewed by: Abdi (Negro Lerner - Fully Assessed Reason for Visit: Jose Cath Problem [97932] Visit Diagnoses:Retention of urine [R33.9] Recurrent UTI [...] [T07.XXXA] INVALID FOR* PAF (paroxysmal atrial fibrillation) ([facility]) [I48* Osteoarthritis [M19.90] Hypertension [I10] Hyperlipemia [E78.5] Foot ulcer ([facility]) [L97.509] Altered mental status [R41.82] INVALID FOR*10/30/2017 TIA (transient ischemic attack) [G45.9] INVALID FOR* BMI 60.0-69.9, adult ([facility]) [Z68.44] INVALID FOR* Stroke ([facility]) [I63.9] INVALID FOR* Patient noncompliant with anticoagulant medicat*INVALID FOR* Chronic pain [G89.29] INVALID FOR* Cellulitis [L03.90] INVALID FOR* Morbid obesity with BMI of 70 and over, adult (*INVALID FOR* Septic shock ([facility]) [A41.9, R65.21] INVALID FOR* WHITLEY (acute kidney injury) ([facility]) [N17.9] INVALID FOR* Acute encephalopathy [G93.40] INVALID [...] and Disposition History Recorded Encounter Status:Closed by ELFEGO ABDI on 12/19/18 [facility] PROGRESSon 12-19-2018 PROGRESS HNO ID: [id number] Author: Abdi Lerner Service: ? Author Type: Nurse Practitioner Type: Progress Notes Filed: 12/19/2018 11:58 AM Note Text: NEW PATIENT HISTORY AND PHYSICAL EXAM HISTORY OF PRESENT ILLNESS Patient presents with: Jose Cath Problem Salazar Coyle is a 68 year old female who presents today as a new patient. Patient with a h/o neurogenic bladder, recurrent bladder infections, urinary retention. H/o CVA, non ambulatory at this time, BM >70. Patient resides at [facility]. She has had a chronic jose catheter [...] Urine (mg/dL) Date Value 08/16/2018 NEGATIVE Specific Linn, Ur (no units) Date Value 08/16/2018 1.021 [...] change in bowel habits. GENITOURINARY: See HPI. BILLING CLERK: Negative for abnormal vaginal bleeding, abnormal vaginal [...] Glucose (mg/dL) is:Less than 110 Give 0 gcpoi780-746 Give 0 yjtra753-114 Give 2 mbyxz562-230 Give 4 yspzp983-699 Give 6 zajry349-319 Give 8 itdac803-247 Give 10 unitsGreater than 400 Give 10 [...] - ICD9: 596.89, ICD10: N32.89 Abdi Lerner APRN.DIRECTOR PROFESSIONAL SERVICES Normal [facility] CNCOon 11-27-2018 CNCO Letter Text Normal [facility] CONSULTon 08-16-2018 CONSULT HNO ID: [id number] Author: Jarad (ResJulio Masterson MD Service: Urology Author Type: Resident Type: Consults Filed: 08/16/2018 1:18 PM Note Text: -- Attestation signed by Casper Veliz at 08/16/2018 1:30 PM I have not evaluated the patient but discussed with the resident and agree with resident's findings and plan as documented in the resident's note. Casper Veliz MD -- Urology Inpatient Consultation 08/16/2018 [...] diabetes mellitus with hyperglycemia (HCC) PAST SURGICAL HISTORY: PAST SURGICAL HISTORY Procedure [...] 01/06/2018 7.355 7.350 - 7.450 Final Specific Linn, Ur Date Value Ref Range Status 08/16/2018 [...] Jarad Masterson MD 08/16/2018 1:13 PM Normal [facility] Cult Urineon 08-16-2018 Cult Urine Test performed at [facility] No growth Normal [facility] Comment on above: Performed By: #### G FR #### [facility] [address] [place] [address] ED NOTEon 08-16-2018 ED NOTE HNO ID: [id number] Author: Ying (Rn) MATHEUS Nguyen Service: Emergency Medicine Author Type: Registered Nurse Type: ED Notes Filed: 08/16/2018 10:04 AM Note Text: Multiple jose attempts without success Normal [facility] ED NOTE HNO ID: [id number] Author: Vincent (Medic) Meri Spears Service: ? Author Type: Solid Waste Management Engineer and In Flight Technician Type: ED Notes Filed: 08/16/2018 9:19 AM Note Text: Bed: 36-ED Expected date: 08/16/18 Expected time: [facility] arrival: [facility] Comments: [facility] Normal [facility] ED PROV NOTEon 08-16-2018 ED PROV NOTE HNO ID: [id number] Author: Christina Cuenca MD Service: Emergency Medicine Author Type: Physician Type: ED Provider Notes Filed: 08/16/2018 8:21 PM Note Text: Brief HPI: Salazar Coyle is a 67 year old female with a PMH as documented below who presents for evaluation of inability place a Jose catheter. Patient is coming from a [facility]. She has a chronic indwelling Jose catheter. They're unable to replace it last night meeting resistance. Patient denies any other complaints at this time. She is without fevers abdominal pain nausea or vomiting. PAST MEDICAL HISTORY Diagnosis Date - Back pain - Foot ulcer ([facility]) - Generalized weakness - Hip pain - Hyperlipemia - Hypertension - Morbid obesity ([facility]) - Muscle spasm of back - Osteoarthritis - PAF (paroxysmal atrial fibrillation) ([facility]) - Rotator cuff tear - Stroke ([facility]) - Type 2 diabetes mellitus with hyperglycemia ([facility]) Constitutional: Nontoxic, well-appearing without any respiratory distress. [...] for disposition details Christina Cuenca MD 08/16/182020 [facility] ED PROV NOTE HNO ID: [id number] Author: Adriana Charles DO Service: Emergency Medicine [...] 08/16/18 History Patient presents with: Urinary Problem: ECF staff took out jose cath for routine [...] Date - Back pain - Foot ulcer ([facility]) - Generalized weakness - Hip pain - Hyperlipemia - Hypertension - Morbid obesity ([facility]) - Muscle spasm of back - Osteoarthritis - PAF (paroxysmal atrial fibrillation) ([facility]) - Rotator cuff tear - Stroke ([facility]) - Type 2 diabetes mellitus with hyperglycemia ([facility]) PAST SURGICAL HISTORY Procedure Laterality Date - [...] Bilirubin, Urine see below (A) Negative Specific Linn, Ur 1.021 1.005 - 1.030 pH, Urine [...] Aug 16 1441 Adriana (Harish Charles's Documentation SunAugust 16, 2018 1030 I spoke with urology [...] 08/16/18 1445 Christina Cuenca MD 08/16/182027 Normal [facility] Urinalysis Routineon 019 RBC LM.HPF (Urine sed) [#/Area] 7.0-12 High 0.0-5.0 [facility] Comment on above: Performed By: #### G FR #### [place] [address] Bacteria LM.HPF (Urine sed) [#/Area] NONE Normal None [facility] Comment on above: Performed By: #### G FR #### [place] [address] Ep Cells Urine 0.6 /hpf Normal 0.0-5.0 [facility] Comment on above: Performed By: #### G FR #### [place] [address] Hyaline Cast 4.5 /lpf High 0.0-1.0 [facility] Comment on above: Performed By: #### G FR #### [place] [address] WBC LM.HPF (Urine sed) [#/Area] 145.1 /[HPF] High 0.0-5.0 [facility] Comment on above: Performed By: #### G FR #### [place] [address] Appearance (U) CLOUDY Normal [facility] Comment on above: Performed By: #### G FR #### [facility] [address] [place] [address] Bilirubin (U) [Mass/Vol] see below Abnormal Negative [facility] Comment on above: Result Comment: Dete cted (Unable to confirm). Performed By: #### G FR #### [facility] [address] [place] [address] Color (U) DK YELLOW Normal [facility] Comment on above: Performed By: #### G FR #### [facility] [address] [place] [address] Glucose Ql (U) Negative Normal Negative [facility] Comment on above: Performed By: #### G FR #### [place] [address] Hemoglobin,Urine LARGE Abnormal Negative [facility] Comment on above: Performed By: #### G FR #### [place] [address] Ketone Urine Negative Normal Negative [facility] Comment on above: Performed By: #### G FR #### [place] [address] Leukocytes Esterase LARGE Abnormal Negative [facility] Comment on above: Performed By: #### G FR #### [place] [address] Nitrites Urine Negative Normal Negative [facility] Comment on above: Performed By: #### G FR #### [facility] [address] [place] [address] pH (U) 5.0 [pH] Normal 5.0-8.0 [facility] Comment on above: Performed By: #### G FR #### [facility] [address] [place] [address] Protein (U) [Mass/Vol] 30 mg/dL Abnormal Negative [facility] Comment on above: Performed By: #### G FR #### [place] [address] Specific Linn, Ur 1.021 Normal 1.005-1.030 [facility] Comment on above: Performed By: #### G FR #### [facility] [address] [place], [place] [address] Urobilinogen,Ur 0.2 EU/dL Normal 0.2-1.0 [facility] Comment on above: Performed By: #### G FR #### [facility] [address] [place], [place] [address] Basic Panelon 07-09-2018 Creatinine [Mass/Vol] 0.74 mg/dL Normal 0.51-0.95 [facility] Comment on above: Performed By: #### G FR #### [facility] [address] [place], [place] [address] Anion gap [Moles/Vol] 8 mmol/L Normal 8-16 [facility] Comment on above: Performed By: #### G FR #### [facility] [address] [place], [place] [address] Calcium [Mass/Vol] 8.2 mg/dL Low 8.5-10.1 [facility] Comment on above: Performed By: #### G FR #### [facility] [address] [place], [place] [address] CO2 [Moles/Vol] 32 mmol/L Normal 21-32 [facility] Comment on above: Performed By: #### G FR #### [facility] [address] [place], [place] [address] Glucose [Mass/Vol] 148 mg/dL High 70-99 [facility] Comment on above: Performed By: #### G FR #### [facility] [address] [place], [place] [address] Urea nitrogen [Mass/Vol] 11 mg/dL Normal 7-18 [facility] Comment on above: Performed By: #### G FR #### [facility] [address] [place], [place] [address] Chloride [Moles/Vol] 106 mmol/L Normal 98-107 [facility] Comment on above: Performed By: #### G FR #### [facility] [address] [place], [place] [address] Potassium [Moles/Vol] 4.0 mmol/L Normal 3.5-5.1 [facility] Comment on above: Performed By: #### G FR #### [facility] [address] [place], [place] [address] Sodium [Moles/Vol] 142 mmol/L Normal 136-145 [facility] Comment on above: Performed By: #### G FR #### [facility] [address] [place], [place] [address] CASE MANAGEMon 07-09-2018 CASE MANAGEM HNO ID: [id number] Author: Sivan (Rn) MATHEUS Matthews Service: Care Management Author Type: Registered Nurse Type: Care Mgt Progress Note Filed: 07/09/2018 9:49 AM Note Text: CARE MANAGEMENT DISCHARGE NOTE SERVICE DATE: 07/09/2018 SERVICE TIME: 9:46 AM LOS: 7 days Admission Date: 07/02/2018 DISCHARGE ARRANGEMENT (list agency and phone number) Return to long-term Provider: Kat Garcia CAREGIVER ASSESSMENT: Caregiver is ready, willing and [...] Transportation: Ambulance Transportation Agency and Phone #: [facility] ( [facility] ) [phone] / [phone]. Date of Trip: 07/19/2018 Type of Service: Bariatric BLS Non-emergency Is Patient Medicaid Pending: No Discussion of financial coverage occurred with Patient . Customer Sales Consultant Location: [place] [address] Destination: SNF Financial Care Management Responsibility: None Estimated Charge: NA Approving Concentrator Operator: NA ADDITIONAL CONTACT RESOURCES: none Discharge Information Row Name ED to Hosp-Admission (Current) from 07/02/2018 in [place] 4200 CV MED/SURG [facility] Facility Agency [place] [phone] Patient has been discharged. [facility] transporting patient via cot to [facility]. Patient aware of plan and in agreement. SIGNATURE: Sivan Matthews RN PATIENT NAME: Salazar Coyle DATE: July 09, 2018 TIME: 9:46 AM PAGER/CONTACT #: [phone] Normal [facility] Glucose Meteron 07-09-2018 Glucose [Mass/Vol] 123 mg/dL High 70-99 [facility] Comment on above: Result Comment: MATHEUS OROZCO Performed By: #### C BC1 #### [place] [address] Hemogramon 07-09-2018 Erythrocyte distribution width (RBC) [Ratio] 14.9 % High 11.7-14.4 [facility] Comment on above: Performed By: #### G FR #### [place] [address] Hematocrit (Bld) [Volume fraction] 31.2 % Low 34.1-44.9 [facility] Comment on above: Performed By: #### G FR #### [place] [address] Hemoglobin (Bld) [Mass/Vol] 9.7 g/dL Low 11.2-15.7 [facility] Comment on above: Performed By: #### G FR #### [place] [address] MCH (RBC) [Entitic mass] 31.0 pg Normal 25.6-32.2 [facility] Comment on above: Performed By: #### G FR #### [place] [address] MCHC (RBC) [Mass/Vol] 31.1 % Low 31.6-34.8 [facility] Comment on above: Performed By: #### G FR #### [facility] [address] [place] [address] MCV (RBC) [Entitic vol] 99.7 fL High 79.4-94.8 [facility] Comment on above: Performed By: #### G FR #### [place] [address] Platelet mean volume (Bld) [Entitic vol] 11.9 fL Normal 9.4-12.3 [facility] Comment on above: Performed By: #### G FR #### [facility] [address] [place] [address] Platelets (Bld) [#/Vol] 178 thou/cmm Low 182-369 [facility] Comment on above: Performed By: #### G FR #### [facility] [address] [place] [id number] RBC (Bld) [#/Vol] 3.13 mil/cmm Low 3.93-5.22 [facility] Comment on above: Performed By: #### G FR #### [facility] [address] [place] [address] RDW SD 54.4 fl High 36.4-46.3 [facility] Comment on above: Performed By: #### G FR #### [facility] [address] [place] [address] WBC (Bld) [#/Vol] 6.77 thou/cmm Normal 3.98-10.04 [facility] Comment on above: Performed By: #### G FR #### [facility] [address] [place] [address] MDRD GFRon 07-09-2018 GFR/1.73 sq M predicted among non-blacks MDRD (S/P/Bld) [Vol rate/Area] mL/min/{1.73_m2} Normal >60mL/min/1 .73m2 [facility] Comment on above: Result Comment: If t he patient is , multiply the result by 1.210. Performed By: #### G FR #### [facility] [address] [place] [address] Protimeon 07-09-2018 INR Coag (PPP) [Relative time] 1.16 {INR} Normal 0.90-1.30 [facility] Comment on above: Result Comment: Nerissa min K Antagonist (VKA) Therapeutic Range: INR 2 to 3 (Target INR of 2.5) Note: For patients treated with VKA drugs, such as warfarin, the [place] [employer] 2012 Guideline recommends [...] GH, et al. Chest 2012; 141:7S-47S Pete QUINTANA et al. [facility] 2017; 70: 252-289 Performed By: #### G FR #### [place] [address] PT Coag (PPP) [Time] 11.9 s Normal 9.7-13.0 [facility] Comment on above: Performed By: #### G FR #### [place] [address] Basic Panelon 07-08-2018 Creatinine [Mass/Vol] 0.70 mg/dL Normal 0.51-0.95 [facility] Comment on above: Performed By: #### G FR #### [place] [address] Anion gap [Moles/Vol] 5 mmol/L Low 8-16 [facility] Comment on above: Performed By: #### G FR #### [address] [address] CO2 [Moles/Vol] 33 mmol/L High 21-32 [facility] Comment on above: Performed By: #### G FR #### [facility] 1 [place], [place] [address] Urea nitrogen [Mass/Vol] 13 mg/dL Normal 7-18 [facility] Comment on above: Performed By: #### G FR #### [place] [address] Calcium [Mass/Vol] 8.1 mg/dL Low 8.5-10.1 [facility] Comment on above: Performed By: #### G FR #### [facility] 1 [place], [place] [address] Glucose [Mass/Vol] 177 mg/dL High 70-99 [facility] Comment on above: Performed By: #### G FR #### [facility] 1 [place], [place] [address] Chloride [Moles/Vol] 107 mmol/L Normal 98-107 [facility] Comment on above: Performed By: #### G FR #### [facility] [address] [place], [place] [address] Potassium [Moles/Vol] 4.1 mmol/L Normal 3.5-5.1 [facility] Comment on above: Performed By: #### G FR #### [facility] 1 [place], [place] [address] Sodium [Moles/Vol] 141 mmol/L Normal 136-145 [facility] Comment on above: Performed By: #### G FR #### [facility] [address] [place], [place] [address] CASE MANAGEMon 07-08-2018 CASE MANAGEM HNO ID: [id number] Author: Sivan (Rn) MATHEUS Matthews Service: Care [...] 08, 2018 TIME: 5:03 PM PAGER/CONTACT #: [phone] Normal [facility] Hemogramon 07-08-2018 Erythrocyte distribution width (RBC) [Ratio] 14.7 % High 11.7-14.4 [facility] Comment on above: Performed By: #### G FR #### [facility] [address] [place] [address] Hematocrit (Bld) [Volume fraction] 32.8 % Low 34.1-44.9 [facility] Comment on above: Performed By: #### G FR #### [facility] [address] [place] [address] Hemoglobin (Bld) [Mass/Vol] 10.0 g/dL Low 11.2-15.7 [facility] Comment on above: Performed By: #### G FR #### [facility] [address] [place] [address] MCH (RBC) [Entitic mass] 30.2 pg Normal 25.6-32.2 [facility] Comment on above: Performed By: #### G FR #### [facility] [address] [place] [address] MCHC (RBC) [Mass/Vol] 30.5 % Low 31.6-34.8 [facility] Comment on above: Performed By: #### G FR #### [facility] [address] [place] [address] MCV (RBC) [Entitic vol] 99.1 fL High 79.4-94.8 [facility] Comment on above: Performed By: #### G FR #### [place] [address] Platelet mean volume (Bld) [Entitic vol] 12.2 fL Normal 9.4-12.3 [facility] Comment on above: Performed By: #### G FR #### [facility] [address] [place] [address] Platelets (Bld) [#/Vol] 144 thou/cmm Low 182-369 [facility] Comment on above: Performed By: #### G FR #### [facility] [address] [place] [address] RBC (Bld) [#/Vol] 3.31 mil/cmm Low 3.93-5.22 [facility] Comment on above: Performed By: #### G FR #### [place] [address] RDW SD 53.6 fl High 36.4-46.3 [facility] Comment on above: Performed By: #### G FR #### [facility] 1 [place], [place] [address] WBC (Bld) [#/Vol] 6.50 thou/cmm Normal 3.98-10.04 [facility] Comment on above: Performed By: #### G FR #### [facility] 1 [place], [place] [address] PLAN OF CAREon 07-08-2018 PLAN OF CARE HNO ID: [id number] Author: Eduardo Bradford (Pharmacist) Service: Pharmacy Author Type: Pharmacist Type: Plan of Care Filed: 07/08/2018 1:05 PM Note Text: DISCHARGE MEDICATION REVIEW BY PHARMACY Patient Name: Salzaar Coyle Account #: Data Unavailable Admission Date: 07/02/2018 Date of Contact: July 08, 2018 Time of Contact: 1:05 PM Medication list was reviewed by a Pharmacist for drug interactions or drug related problems:Yes Below is a summary of pharmacist recommendations discussed with LIP: No Recommendations at this time from Discharge Medication List. EDUARDO BRADFORD, PHARMACIST July 08, 2018 1:05 PM Pager: [phone] 07/08/2018 1:05 PM Medication List START taking [...] baclofen 10 mg tablet Commonly known as: LIORESAL BASAGLAR KWIKPEN U-100 INSULIN 100 unit/mL (3 mL) Inpn [...] mg tablet Commonly known as: COZAAR Normal [facility] PROGRESSon 07-08-2018 PROGRESS HNO ID: [id number] Author: Susan Greco Service: Hospital Medicine Author Type: Physician Type: Progress Notes Filed: 07/08/2018 3:15 PM Note Text: Earlier I told pt that she is stable for discharge- She does not need further hospitalization CM notified me that she is refusing discharge [facility] PROGRESS HNO ID: [id number] Author: Susan Greco Service: Hospital Medicine Author [...] 2018 TIME: 9:20 AM PAGER/CONTACT #: Marly [facility] Protimeon 07-08-2018 INR Coag (PPP) [Relative time] 1.06 {INR} Normal 0.90-1.30 [facility] Comment on above: Result Comment: Nerissa min K Antagonist (VKA) Therapeutic Range: INR 2 to 3 (Target INR of 2.5) Note: For patients treated with VKA drugs, such as warfarin, the [place] [employer] 2012 Guideline recommends [...] 2.5 to 3.5 target INR of 3). Guyatt GH, et al. Chest 2012; 141:7S-47S Pete RA, et al. JACC 2017; 70: 252-289 Performed By: #### G FR #### [facility] 1 [place], [place] [address] PT Coag (PPP) [Time] 11.0 s Normal 9.7-13.0 [facility] Comment on above: Performed By: #### G FR #### [facility] 1 [place], [place] [address] Activated PTTon 07-07-2018 aPTT Coag (Bld) [Time] 86.3 s Critically high 23.0-32. 4 [facility] Comment on above: Result Comment: Unfr actionated [...] laboratory APTT reagent in use throughout the [facility]. Performed By: #### G FR #### [facility] 1 [place], [place] [address] aPTT Coag (Bld) [Time] 46.1 s High 23.0-32.4 [facility] Comment on above: Result Comment: Unfr actionated [...] laboratory APTT reagent in use throughout the [facility]. Performed By: #### G FR #### [facility] 1 [place], [place] [address] Basic Panelon 07-07-2018 Creatinine [Mass/Vol] 0.66 mg/dL Normal 0.51-0.95 [facility] Comment on above: Performed By: #### P BNP #### [facility] [address] [place], [place] [address] Anion gap [Moles/Vol] 9 mmol/L Normal 8-16 [facility] Comment on above: Performed By: #### P BNP #### [facility] 1 [place], [place] [address] CO2 [Moles/Vol] 32 mmol/L Normal 21-32 [facility] Comment on above: Performed By: #### P BNP #### [facility] [address] [place], [place] [address] Glucose [Mass/Vol] 126 mg/dL High 70-99 [facility] Comment on above: Performed By: #### P BNP #### [facility] [address] [place], [place] [address] Urea nitrogen [Mass/Vol] 11 mg/dL Normal 7-18 [facility] Comment on above: Performed By: #### P BNP #### [facility] [address] [place], [place] [address] Calcium [Mass/Vol] 8.2 mg/dL Low 8.5-10.1 [facility] Comment on above: Performed By: #### P BNP #### [facility] [address] [place], [place] [address] Chloride [Moles/Vol] 105 mmol/L Normal 98-107 [facility] Comment on above: Performed By: #### P BNP #### [facility] [address] [place], [place] [address] Potassium [Moles/Vol] 3.6 mmol/L Normal 3.5-5.1 [facility] Comment on above: Performed By: #### P BNP #### [facility] [address] [place], [place] [address] Sodium [Moles/Vol] 142 mmol/L Normal 136-145 [facility] Comment on above: Performed By: #### P BNP #### [address] [address] Hemogramon 07-07-2018 Erythrocyte distribution width (RBC) [Ratio] 14.7 % High 11.7-14.4 [facility] Comment on above: Performed By: #### P BNP #### [facility] [address] [place] [address] Hematocrit (Bld) [Volume fraction] 31.8 % Low 34.1-44.9 [facility] Comment on above: Performed By: #### P BNP #### [facility] [address] [place] [address] Hemoglobin (Bld) [Mass/Vol] 10.1 g/dL Low 11.2-15.7 [facility] Comment on above: Performed By: #### P BNP #### [place] [address] MCH (RBC) [Entitic mass] 31.2 pg Normal 25.6-32.2 [facility] Comment on above: Performed By: #### P BNP #### [place] [address] MCHC (RBC) [Mass/Vol] 31.8 % Normal 31.6-34.8 [facility] Comment on above: Performed By: #### P BNP #### [place] [address] MCV (RBC) [Entitic vol] 98.1 fL High 79.4-94.8 [facility] Comment on above: Performed By: #### P BNP #### [place] [address] Platelet mean volume (Bld) [Entitic vol] 12.2 fL Normal 9.4-12.3 [facility] Comment on above: Performed By: #### P BNP #### [place] [address] Platelets (Bld) [#/Vol] 119 thou/cmm Low 182-369 [facility] Comment on above: Performed By: #### P BNP #### [place] [address] RBC (Bld) [#/Vol] 3.24 mil/cmm Low 3.93-5.22 [facility] Comment on above: Performed By: #### P BNP #### [facility] [address] [place], [place] [address] RDW SD 53.6 fl High 36.4-46.3 [facility] Comment on above: Performed By: #### P BNP #### [facility] 1 [place], [place] [address] WBC (Bld) [#/Vol] 6.85 thou/cmm Normal 3.98-10.04 [facility] Comment on above: Performed By: #### P BNP #### [facility] [address] [place] [address] PROGRESSon 07-07-2018 PROGRESS HNO ID: [id number] Author: Susan Greco Service: Hospital Medicine Author [...] 2018 TIME: 2:59 PM PAGER/CONTACT #: Normal [facility] Protimeon 07-07-2018 INR Coag (PPP) [Relative time] 1.13 {INR} Normal 0.90-1.30 [facility] Comment on above: Result Comment: Nerissa min K Antagonist (VKA) Therapeutic Range: INR 2 to 3 (Target INR of 2.5) Note: For patients treated with VKA drugs, such as warfarin, the [place] [employer] 2012 Guideline recommends [...] Chest 2012; 141:7S-47S Pete RA et al. [facility] 2017; 70: 252-289 Performed By: #### P BNP #### [place] [address] PT Coag (PPP) [Time] 11.6 s Normal 9.7-13.0 [facility] Comment on above: Performed By: #### P BNP #### [place] [address] Activated PTTon 07-06-2018 aPTT Coag (Bld) [Time] 61.4 s High 23.0-32.4 [facility] Comment on above: Result Comment: Unfr actionated [...] laboratory APTT reagent in use throughout the [facility]. Performed By: #### P BNP #### [place] [address] Basic Panelon 07-06-2018 Creatinine [Mass/Vol] 0.60 mg/dL Normal 0.51-0.95 [facility] Comment on above: Performed By: #### P BNP #### [place] [address] Anion gap [Moles/Vol] 7 mmol/L Low 8-16 [facility] Comment on above: Performed By: #### P BNP #### [facility] [address] [place], [place] [address] CO2 [Moles/Vol] 32 mmol/L Normal 21-32 [facility] Comment on above: Performed By: #### P BNP #### [facility] [address] [place], [place] [address] Glucose [Mass/Vol] 150 mg/dL High 70-99 [facility] Comment on above: Performed By: #### P BNP #### [facility] [address] [place], [place] [address] Urea nitrogen [Mass/Vol] 11 mg/dL Normal 7-18 [facility] Comment on above: Performed By: #### P BNP #### [facility] [address] [place] [address] Calcium [Mass/Vol] 7.9 mg/dL Low 8.5-10.1 [facility] Comment on above: Performed By: #### P BNP #### [facility] [address] [place] [address] Chloride [Moles/Vol] 106 mmol/L Normal 98-107 [facility] Comment on above: Performed By: #### P BNP #### [place] [address] Potassium [Moles/Vol] 3.4 mmol/L Low 3.5-5.1 [facility] Comment on above: Performed By: #### P BNP #### [place] [address] Sodium [Moles/Vol] 142 mmol/L Normal 136-145 [facility] Comment on above: Performed By: #### P BNP #### [place] [address] Hemogramon 07-06-2018 Erythrocyte distribution width (RBC) [Ratio] 14.5 % High 11.7-14.4 [facility] Comment on above: Performed By: #### P BNP #### [place] [address] Hematocrit (Bld) [Volume fraction] 31.4 % Low 34.1-44.9 [facility] Comment on above: Performed By: #### P BNP #### [facility] [address] [place] [address] Hemoglobin (Bld) [Mass/Vol] 9.9 g/dL Low 11.2-15.7 [facility] Comment on above: Performed By: #### P BNP #### [facility] [address] [place] [address] MCH (RBC) [Entitic mass] 30.9 pg Normal 25.6-32.2 [facility] Comment on above: Performed By: #### P BNP #### [facility] [address] [place] [address] MCHC (RBC) [Mass/Vol] 31.5 % Low 31.6-34.8 [facility] Comment on above: Performed By: #### P BNP #### [place] [address] MCV (RBC) [Entitic vol] 98.1 fL High 79.4-94.8 [facility] Comment on above: Performed By: #### P BNP #### [place] [address] Platelet mean volume (Bld) [Entitic vol] 12.1 fL Normal 9.4-12.3 [facility] Comment on above: Performed By: #### P BNP #### [place] [address] Platelets (Bld) [#/Vol] 94 thou/cmm Low 182-369 [facility] Comment on above: Result Comment: Repe ated AND verified Performed By: #### P BNP #### [place] [address] RBC (Bld) [#/Vol] 3.20 mil/cmm Low 3.93-5.22 [facility] Comment on above: Performed By: #### P BNP #### [place] [address] RDW SD 52.8 fl High 36.4-46.3 [facility] Comment on above: Performed By: #### P BNP #### [facility] [address] [place], [place] [address] WBC (Bld) [#/Vol] 9.52 thou/cmm Normal 3.98-10.04 [facility] Comment on above: Performed By: #### P BNP #### [facility] [address] [place], [place] [address] PROGRESSon 07-06-2018 PROGRESS HNO ID: [id number] Author: Rizwan Fonseca Service: Hospital Medicine Author Type: Physician Type: Progress Notes Filed: 07/06/2018 5:45 PM Note Text: DEPARTMENT OF HOSPITAL MEDICINE [employer] PROGRESS NOTE- HOSPITAL DAY 4 SERVICE [...] 0659 07/05/18 0700 - 07/06/18 0659 07/06/18 07 - 07/07/18 0659 Intake (ml) 2648.8 4952.8 2488.4 780.1 -- Output (ml) 675 3590 5120 820 260 Net (ml) 1973.8 1362.8 -2631.6 -39.9 -260 Temp (24hrs), Av.4 ?C (95.8 ?F), Min:33.8 ?C (92.8 ?F), Max:37.2 ?C (99 ?F) Pain Level: 7 (07/05/18 5154) CHIEF COMPLAINT: Septic shock (HCC) OVERNIGHT EVENTS: Transferred from ICU to [facility] 67 yo F with PMHx of multiple chronic medical conditions including Type 2 diabetes mellitus, morbid obesity, essential hypertension, chronic atrial fibrillation, chronic pain syndrome presented from [facility] for evaluation of altered mental status. The patient has a chronic indwelling jose catheter secondary to mobility issues and reportedly was recently diagnosed with a UTI at the [facility].?[facility] staff sent UA and patient diagnosed with [...] She is stable to be transferred to [facility]. Recommend PHOEBE evaluation outpatient. INTERVAL HISTORY OF [...] 2+ carotid Assessment/Plan Principal Problem: Septic shock ([facility]) POA: Yes Assessment AND Plan: -- Resolved at this time -- Blood Cultures Positive for Barnes-Sensitive Proteus Active Problems: Type 2 diabetes mellitus with hyperglycemia ([facility]) POA: Yes Assessment AND Plan: --Continue on supplemental insulin as needed PAF (paroxysmal atrial fibrillation) ([facility]) POA: Yes Assessment AND Plan: -- Controlled -- Inititating warfarin Rx BMI 60.0-69.9, adult ([facility]) POA: Yes Assessment AND Plan: -- Certainly a massive issue related to her [facility] Patient noncompliant with anticoagulant medication POA: Yes Assessment AND Plan: -- Will need to address this going further WHITLEY (acute kidney injury) ([facility]) POA: Yes Assessment AND Plan: -- Improving. [...] with more than 50% of the total [id number] time of the visit in counseling / [...] LANTUS SOLOSTAR 100 unit/mL (3 mL) inpn [facility] Medication Re-entry - cyclobenzaprine (FLEXERIL) 10 mg [...] AND WEEKEND COVERAGE: After 7pm please page [phone] Normal [facility] Protimeon 07-06-2018 INR Coag (PPP) [Relative time] 1.10 {INR} Normal 0.90-1.30 [facility] Comment on above: Result Comment: Nerissa min K Antagonist (VKA) Therapeutic Range: INR 2 to 3 (Target INR of 2.5) Note: For patients treated with VKA drugs, such as warfarin, the [place] [employer] 2012 Guideline recommends [...] BAKER, et al. Chest 2012; 141:7S-47S Pete QUINTANA, et al. [facility] 2017; 70: 252-289 Performed By: #### P BNP #### [facility] [address] [place], [place] [address] PT Coag (PPP) [Time] 11.4 s Normal 9.7-13.0 [facility] Comment on above: Performed By: #### P BNP #### [facility] [address] [place], [place] [address] Activated PTTon 07-05-2018 aPTT Coag (Bld) [Time] 56.4 s High 23.0-32.4 [facility] Comment on above: Result Comment: Unfr actionated [...] laboratory APTT reagent in use throughout the [facility]. Performed By: #### P BNP #### [facility] [address] [place], [place] [address] aPTT Coag (Bld) [Time] 44.6 s High 23.0-32.4 [facility] Comment on above: Result Comment: Unfr actionated [...] laboratory APTT reagent in use throughout the [facility]. Performed By: #### P BNP #### [facility] [address] [place], [place] [address] aPTT Coag (Bld) [Time] 55.0 s High 23.0-32.4 [facility] Comment on above: Result Comment: Unfr actionated [...] laboratory APTT reagent in use throughout the [facility]. Performed By: #### P 14 #### [place] [address] aPTT Coag (Bld) [Time] 44.6 s High 23.0-32.4 [facility] Comment on above: Result Comment: Unfr actionated [...] laboratory APTT reagent in use throughout the [facility]. Performed By: #### P 14 #### [place] [address] Basic Panelon 07-05-2018 Creatinine [Mass/Vol] 0.60 mg/dL Normal 0.51-0.95 [facility] Comment on above: Performed By: #### P 14 #### [place] [address] Anion gap [Moles/Vol] 9 mmol/L Normal 8-16 [facility] Comment on above: Performed By: #### P 14 #### [place] [address] CO2 [Moles/Vol] 31 mmol/L Normal 21-32 [facility] Comment on above: Performed By: #### P 14 #### [address] [place], [place] [address] Urea nitrogen [Mass/Vol] 9 mg/dL Normal 7-18 [facility] Comment on above: Performed By: #### P 14 #### [facility] [address] [place], [place] [address] Calcium [Mass/Vol] 8.0 mg/dL Low 8.5-10.1 [facility] Comment on above: Performed By: #### P 14 #### [facility] [address] [place], [place] [address] Glucose [Mass/Vol] 211 mg/dL High 70-99 [facility] Comment on above: Performed By: #### P 14 #### [facility] [address] [place] [address] Chloride [Moles/Vol] 108 mmol/L High 98-107 [facility] Comment on above: Performed By: #### P 14 #### [facility] [address] [place], [place] [address] Potassium [Moles/Vol] 3.6 mmol/L Normal 3.5-5.1 [facility] Comment on above: Performed By: #### P 14 #### [facility] [address] [place], [place] [address] Sodium [Moles/Vol] 144 mmol/L Normal 136-145 [facility] Comment on above: Performed By: #### P 14 #### [facility] [address] [place], [place] [address] CASE MANAGEMon 07-05-2018 CASE MANAGEM HNO ID: [id number] Author: Simona Naik Service: Care Management Author Type: ? Type: Care Mgt Progress Note Filed: 07/05/2018 12:52 PM Note Text: CARE MANAGEMENT PROGRESS NOTE SERVICE DATE: 07/05/2018 SERVICE TIME: 1030 LOS: 3 days IM letter given to patient on [id number]. SIGNATURE: Simona Naik PATIENT NAME: Salazar Coyle DATE: July 05, 2018 TIME: 12:51 PM PAGER/CONTACT #: [phone] Normal [facility] CASE MANAGEM HNO ID: [id number] Author: Felecia (Rn) MATHEUS Cope Service: Care Management Author Type: Registered Nurse Type: Care Mgt Progress Note Filed: 07/05/2018 12:38 PM Note Text: CARE MANAGEMENT PROGRESS NOTE SERVICE DATE: 07/05/2018 SERVICE TIME: 12:36 PM LOS: 3 days Met with pt at bedside. She confirms that she lives at [facility] and would like to return. Met with [facility] liaison. She states pt is a bed hold. Sent message in [place] [employer] to confirm. SIGNATURE: Felecia Cope RN PATIENT NAME: Salazar Coyle DATE: July 05, 2018 TIME: 12:35 PM PAGER/CONTACT #: [phone] Normal [facility] Hemogramon 07-05-2018 Erythrocyte distribution width (RBC) [Ratio] 14.6 % High 11.7-14.4 [facility] Comment on above: Performed By: #### P 14 #### [place] [address] Hematocrit (Bld) [Volume fraction] 32.5 % Low 34.1-44.9 [facility] Comment on above: Performed By: #### P 14 #### [place] [address] Hemoglobin (Bld) [Mass/Vol] 10.4 g/dL Low 11.2-15.7 [facility] Comment on above: Performed By: #### P 14 #### [place] [address] MCH (RBC) [Entitic mass] 30.8 pg Normal 25.6-32.2 [facility] Comment on above: Performed By: #### P 14 #### [place] [address] MCHC (RBC) [Mass/Vol] 32.0 % Normal 31.6-34.8 [facility] Comment on above: Performed By: #### P 14 #### [place] [address] MCV (RBC) [Entitic vol] 96.2 fL High 79.4-94.8 [facility] Comment on above: Performed By: #### P 14 #### [facility] 1 [place], [place] [address] Platelet mean volume (Bld) [Entitic vol] 11.6 fL Normal 9.4-12.3 [facility] Comment on above: Performed By: #### P 14 #### [facility] 1 [place], [place] [address] Platelets (Bld) [#/Vol] 101 thou/cmm Low 182-369 [facility] Comment on above: Performed By: #### P 14 #### [facility] 1 [place], [place] [address] RBC (Bld) [#/Vol] 3.38 mil/cmm Low 3.93-5.22 [facility] Comment on above: Performed By: #### P 14 #### [facility] 1 [place] [address] RDW SD 51.5 fl High 36.4-46.3 [facility] Comment on above: Performed By: #### P 14 #### [facility] 1 [place], [place] [address] WBC (Bld) [#/Vol] 13.95 thou/cmm High 3.98-10.04 [facility] Comment on above: Performed By: #### P 14 #### [facility] 1 [place], [place] [address] Magnesium Bloodon 07-05-2018 Magnesium [Mass/Vol] 2.2 mg/dL Normal 1.6-2.6 [facility] Comment on above: Performed By: #### P 14 #### [facility] 1 [place] [address] NURSING PROGon 07-05-2018 NURSING PROG HNO ID: [id number] Author: Honey (Rn) MATHEUS Hawthorne Service: Nursing Author Type: Registered Nurse Type: Nursing Progress Note Filed: 07/05/2018 7:12 PM Note Text: 17:48-WIND TURBINE ENGINEER called report to 4200 MATHEUS Guerra RN. 18:00-RN called Jesus, , updated him that patient will be moving to 421. 18:45-transferred patient from [facility] to [facility] via bariatric bed. RN ensured heparin drip was going at 2600units/hr and patient was attached to 2LNC and new outside upholsterer placed. Tech at bedside obtaining vitals. MATHEUS Guerra given meds. Normal [facility] PROGRESSon 07-05-2018 PROGRESS HNO ID: [id number] Author: Durga Allison MD Service: Critical Care Author Type: Resident Type: Progress Notes Filed: 07/05/2018 11:04 AM Note Text: -- Attestation signed by Feliberto Romeo at 07/05/2018 6:12 PM [facility] STAFF PHYSICIAN NOTE OF PERSONAL [...] minutes. SIGNATURE: Feliberto Romeo MD [facility] PAG[facility]:[phone] -- CRITICAL CARE PROGRESS NOTE SERVICE DATE: [...] (Hcc) Wounds, Multiple Paf (Paroxysmal Atrial Fibrillation) ([facility]) Osteoarthritis Hypertension Hyperlipemia Foot Ulcer (Hcc) Tia (Transient Ischemic Attack) Bmi 60.0-69.9, Adult ([facility]) Stroke (Hcc) Patient Noncompliant With Anticoagulant Medication Chronic Pain Cellulitis Morbid Obesity With Bmi of 70 and Over, Adult (Hcc) Septic Shock (Hcc) Whitley (Acute Kidney Injury) ([facility]) Acute Encephalopathy PAST MEDICAL HISTORY Diagnosis Date - Back pain - Foot ulcer ([facility]) - Generalized weakness - Hip pain - Hyperlipemia - Hypertension - Morbid obesity (HCC) - Muscle spasm of back - Osteoarthritis - PAF (paroxysmal atrial fibrillation) ([facility]) - Rotator cuff tear - Stroke ([facility]) - Type 2 diabetes mellitus with hyperglycemia ([facility]) PAST SURGICAL HISTORY Procedure Laterality Date - [...] July 05, 2018 TIME: 8:59 AM Normal [facility] Protein C Activityon 019 Protein [Mass/Vol] SEE BELOW Normal [facility] Comment on above: Result Comment: Prot ein [...] helpful to establish a diagnosis. Performing Laboratory: [facility] [address] [place] [address] Performed By: #### P 14 #### [place] [address] Protimeon 07-05-2018 INR Coag (PPP) [Relative time] 1.08 {INR} Normal 0.90-1.30 [facility] Comment on above: Result Comment: Nerissa min K Antagonist (VKA) Therapeutic Range: INR 2 to 3 (Target INR of 2.5) Note: For patients treated with VKA drugs, such as warfarin, the [employer] 2012 Guideline recommends [...] Chest 2012; 141:7S-47S Pete RA et al. [facility] 2017; 70: 252-289 Performed By: #### P BNP #### [facility] 1 [place], [place] [address] PT Coag (PPP) [Time] 11.2 s Normal 9.7-13.0 [facility] Comment on above: Performed By: #### P BNP #### [address] [address] Activated PTTon 07-04-2018 aPTT Coag (Bld) [Time] 38.8 s High 23.0-32.4 [facility] Comment on above: Result Comment: Unfr actionated [...] laboratory APTT reagent in use throughout the [facility]. Performed By: #### P 14 #### [address] [address] aPTT Coag (Bld) [Time] 41.0 s High 23.0-32.4 [facility] Comment on above: Result Comment: Unfr actionated [...] laboratory APTT reagent in use throughout the [facility]. Performed By: #### P 14 #### [facility] [address] [place] [address] Basic Panelon 07-04-2018 Creatinine [Mass/Vol] 0.81 mg/dL Normal 0.51-0.95 [facility] Comment on above: Performed By: #### P 14 #### [facility] [address] [place] [address] Anion gap [Moles/Vol] 6 mmol/L Low 8-16 [facility] Comment on above: Performed By: #### P 14 #### [facility] 1 [place], [place] [address] CO2 [Moles/Vol] 30 mmol/L Normal 21-32 [facility] Comment on above: Performed By: #### P 14 #### [facility] [address] [place] [address] Glucose [Mass/Vol] 215 mg/dL High 70-99 [facility] Comment on above: Performed By: #### P 14 #### [facility] 1 [place], [place] [address] Urea nitrogen [Mass/Vol] 21 mg/dL High 7-18 [facility] Comment on above: Performed By: #### P 14 #### [facility] 1 [place], [place] [address] Calcium [Mass/Vol] 7.8 mg/dL Low 8.5-10.1 [facility] Comment on above: Performed By: #### P 14 #### [facility] 1 [place], [place] [address] Chloride [Moles/Vol] 107 mmol/L Normal 98-107 [facility] Comment on above: Performed By: #### P 14 #### [address] [address] Potassium [Moles/Vol] 3.3 mmol/L Low 3.5-5.1 [facility] Comment on above: Performed By: #### P 14 #### [facility] [address] [place] [address] Sodium [Moles/Vol] 140 mmol/L Normal 136-145 [facility] Comment on above: Performed By: #### P 14 #### [facility] [address] [place] [address] Hemogramon 07-04-2018 Erythrocyte distribution width (RBC) [Ratio] 14.6 % High 11.7-14.4 [facility] Comment on above: Performed By: #### P T #### [facility] [address] [place] [address] Hematocrit (Bld) [Volume fraction] 31.6 % Low 34.1-44.9 [facility] Comment on above: Performed By: #### P T #### [facility] [address] [place] [address] Hemoglobin (Bld) [Mass/Vol] 10.3 g/dL Low 11.2-15.7 [facility] Comment on above: Performed By: #### P T #### [facility] [address] [place] [address] MCH (RBC) [Entitic mass] 31.5 pg Normal 25.6-32.2 [facility] Comment on above: Performed By: #### P T #### [facility] [address] [place] [address] MCHC (RBC) [Mass/Vol] 32.6 % Normal 31.6-34.8 [facility] Comment on above: Performed By: #### P T #### [facility] [address] [place] [address] MCV (RBC) [Entitic vol] 96.6 fL High 79.4-94.8 [facility] Comment on above: Performed By: #### P T #### [facility] [address] [place] [address] Platelet mean volume (Bld) [Entitic vol] 11.0 fL Normal 9.4-12.3 [facility] Comment on above: Performed By: #### P T #### [facility] [address] [place] [address] Platelets (Bld) [#/Vol] 100 thou/cmm Low 182-369 [facility] Comment on above: Performed By: #### P T #### [facility] 1 [place] [address] RBC (Bld) [#/Vol] 3.27 mil/cmm Low 3.93-5.22 [facility] Comment on above: Performed By: #### P T #### [facility] [address] [place] [address] RDW SD 52.1 fl High 36.4-46.3 [facility] Comment on above: Performed By: #### P T #### [facility] [address] [place] [address] WBC (Bld) [#/Vol] 22.94 thou/cmm High 3.98-10.04 [facility] Comment on above: Performed By: #### P T #### [facility] [address] [place] [address] NUTRITIONon 07-04-2018 NUTRITION HNO ID: [id number] Author: Claire De La O RD Service: Nutrition Therapy Author Type: Registered [...] Region Type 2 Diabetes Mellitus With Hyperglycemia ([facility]) Wounds, Multiple Paf (Paroxysmal Atrial Fibrillation) ([facility]) Osteoarthritis Hypertension Hyperlipemia Foot Ulcer ([facility]) Tia (Transient Ischemic Attack) Bmi 60.0-69.9, Adult ([facility]) Stroke ([facility]) Patient Noncompliant With Anticoagulant Medication Chronic Pain Cellulitis Morbid Obesity With Bmi of 70 and Over, Adult ([facility]) Septic Shock ([facility]) Whitley (Acute Kidney Injury) ([facility]) Acute Encephalopathy PAST MEDICAL HISTORY Diagnosis Date - Back pain - Foot ulcer ([facility]) - Generalized weakness - Hip pain - Hyperlipemia - Hypertension - Morbid obesity ([facility]) - Muscle spasm of back - Osteoarthritis - PAF (paroxysmal atrial fibrillation) ([facility]) - Rotator cuff tear - Stroke ([facility]) - Type 2 diabetes mellitus with hyperglycemia ([facility]) PAST SURGICAL HISTORY Procedure Laterality Date - [...] 01/25/15 : (!) 172.4 kg (380 lb) [place] Body Weight: 56.8 kg Resting Metabolic Rate: 2479 Estimated kilocalorie needs: 5554-7815 kilocalories determined by 25-30 kcal/kg Estimated protein needs: 68-85 grams determined by 1.2-1.5 g/kg Dosing weight Estimated fluid needs: 4004-5366 milliliters based on 1 mL per kcal [...] 100 mL/hr INTRAVENOUS CONTINUOUS Date 07/03/18699 - 07/04/1865807/04/18699 - 07/05/18 0659 Shift 0905-7186 1175-5202 1492-1828 24 Hour Total 0698-5196 1846-9083 9867-7763 24 Hour Total INTAKE PO 720 720 240 240 PO 720 720 240 240 IV 1681.2 998.1 1553.5 4232.8 148.5 148.5 Vancomycin IV 500 500 Zosyn IV 50 50 100 200 Potassium IVPB 300 300 Magnesium IVPB 50 50 Heparin IV 96 80.2 126.1 302.3 12 12 LR 930 177 169 1799 122 122 NORepinephrine Volume 105.2 87.9 148.4 341.5 14.5 14.5 Shift Total 2401.2 998.1 1553.5 4952.8 388.5 388.5 OUTPUT Urine 6276 442 5839 3590 1400 1400 Output ( Indwelling Urinary Catheter 07/02/18 1159 Jose 16 Fr) 8507 001 7140 3590 1400 1400 Shift Total 5749 406 8791 3590 1400 1400 Weight (kg) 192.6 192.6 195 195 195 195 195 195 Pressure Injury 07/02/18 2000 Heel - Right (Active) Stage Injury DTI 07/03/2018 8:00 PM [employer] Pressure Injury No 07/03/2018 8:00 PM [...] units SIGNATURE: Claire De La O RD, LD PATIENT NAME: Salazar Coyle DATE: July 04, 2018 TIME: 9:52 AM PAGER: [phone] Normal [facility] PROGRESSon 07-04-2018 PROGRESS HNO ID: [id number] Author: Durga Allison MD Service: Critical Care Author Type: Resident Type: Progress Notes Filed: 07/04/2018 1:56 PM Note Text: -- Attestation signed by Feliberto Romeo at 07/04/2018 3:26 PM [facility] STAFF PHYSICIAN NOTE OF PERSONAL [...] eliquis, depression, limited mobility, chronic Jose, and [place] resident brought in for change in mental [...] minutes. SIGNATURE: Feliberto Romeo MD [facility] PAGER:[phone] -- CRITICAL CARE PROGRESS NOTE SERVICE DATE: [...] Bmi of 70 and Over, Adult (Hcc) Septic Shock (Hcc) Whitley (Acute Kidney Injury) (Hcc) Acute Encephalopathy PAST MEDICAL HISTORY Diagnosis Date [...] July 04, 2018 TIME: 8:59 AM Normal [facility] Activated PTTon 07-03-2018 aPTT Coag (Bld) [Time] 49.0 s High 23.0-32.4 [facility] Comment on above: Result Comment: Unfr actionated [...] laboratory APTT reagent in use throughout the [facility]. Performed By: #### P T #### [facility] [address] [place] [address] aPTT Coag (Bld) [Time] 51.7 s High 23.0-32.4 [facility] Comment on above: Result Comment: Unfr actionated [...] laboratory APTT reagent in use throughout the [facility]. Performed By: #### E RTRP #### [facility] 1 [place], [place] [address] aPTT Coag (Bld) [Time] 75.2 s High 23.0-32.4 [facility] Comment on above: Result Comment: Unfr actionated [...] laboratory APTT reagent in use throughout the [facility]. Performed By: #### E RTRP #### [place] [address] Antithrombin IIIon 9 Antithrombin III 66.6 % Low 84.0-123.0 [facility] Comment on above: Performed By: #### P T #### [place] [address] Basic Panelon 07-03-2018 Creatinine [Mass/Vol] 1.26 mg/dL High 0.51-0.95 [facility] Comment on above: Performed By: #### E RTRP #### [place] [address] Anion gap [Moles/Vol] 12 mmol/L Normal 8-16 [facility] Comment on above: Performed By: #### E RTRP #### [address] [address] CO2 [Moles/Vol] 26 mmol/L Normal 21-32 [facility] Comment on above: Performed By: #### E RTRP #### [address] [address] Glucose [Mass/Vol] 163 mg/dL High 70-99 [facility] Comment on above: Performed By: #### E RTRP #### [place] [address] Urea nitrogen [Mass/Vol] 28 mg/dL High 7-18 [facility] Comment on above: Performed By: #### E RTRP #### [facility] [address] [place] [address] Calcium [Mass/Vol] 7.8 mg/dL Low 8.5-10.1 [facility] Comment on above: Performed By: #### E RTRP #### [facility] [address] [place] [address] Chloride [Moles/Vol] 105 mmol/L Normal 98-107 [facility] Comment on above: Performed By: #### E RTRP #### [facility] [address] [place] [address] Potassium [Moles/Vol] 3.8 mmol/L Normal 3.5-5.1 [facility] Comment on above: Performed By: #### E RTRP #### [facility] [address] [place] [address] Sodium [Moles/Vol] 139 mmol/L Normal 136-145 [facility] Comment on above: Performed By: #### E RTRP #### [facility] [address] [place] [address] CASE MANAGEMon 07-03-2018 CASE MANAGEM HNO ID: [id number] Author: Felecia CisnerosRn) MATHEUS Cope Service: Care Management Author Type: Registered Nurse Type: Care Mgt Progress Note Filed: 07/03/2018 3:59 PM Note Text: CARE MANAGEMENT PROGRESS NOTE SERVICE DATE: 07/03/2018 SERVICE TIME: 3:57 PM LOS: 1 day Called pt's son Jesus- confirms pt from [facility]. He requests I call spouse - also Jesus to confirm return. Called home phone- no answer- unable to leave message. SIGNATURE: Felecia Cope RN PATIENT NAME: Salazar Coyle DATE: July 03, 2018 TIME: 3:57 PM PAGER/CONTACT #: [phone] Normal [facility] CONSULT PROGon 07-03-2018 CONSULT PROG HNO ID: [id number] Author: Milagros CisnerosRn) MATHEUS Galdamez Service: Wound/Ostomy Author Type: Registered Nurse Type: Consult Progress Note Filed: 07/03/2018 9:39 AM Note Text: WOUND CARE NURSE CONSULT NOTE SERVICE DATE: 07/03/2018 SERVICE TIME: 851 REASON FOR VISIT: Wound and Pressure Injury TIME SPENT (minutes): 30 Documentation from Wound Expert can be found in scanned documents. Patient seen by Connie FERNANDEZ and shiela RN. Bedside RN requested assessment, RN to [...] July 03, 2018 TIME: 9:33 AM CONTACT#: [id number] Normal [facility] D-Dimer Quantitativeon 07-03 D-Dimer, Quant. 4860 ng/mL(FEU) Critically high <500 [facility] Comment on above: Result Comment: The D-Dimer [...] >=38.9%. Performed By: #### P T #### [place] [address] Fibrinogenon 07-03-2018 Fibrinogen 642 mg/dL High 200-400 [facility] Comment on above: Performed By: #### P T #### [facility] [address] [place] [address] Hemogramon 07-03-2018 Erythrocyte distribution width (RBC) [Ratio] 14.6 % High 11.7-14.4 [facility] Comment on above: Performed By: #### E RTRP #### [facility] [address] [place] [address] Hematocrit (Bld) [Volume fraction] 36.0 % Normal 34.1-44.9 [facility] Comment on above: Performed By: #### E RTRP #### [facility] [address] [place] [address] Hemoglobin (Bld) [Mass/Vol] 11.5 g/dL Normal 11.2-15.7 [facility] Comment on above: Performed By: #### E RTRP #### [place] [address] MCH (RBC) [Entitic mass] 31.0 pg Normal 25.6-32.2 [facility] Comment on above: Performed By: #### E RTRP #### [place] [address] MCHC (RBC) [Mass/Vol] 31.9 % Normal 31.6-34.8 [facility] Comment on above: Performed By: #### E RTRP #### [place] [address] MCV (RBC) [Entitic vol] 97.0 fL High 79.4-94.8 [facility] Comment on above: Performed By: #### E RTRP #### [facility] [address] [place] [address] Platelet mean volume (Bld) [Entitic vol] 11.6 fL Normal 9.4-12.3 [facility] Comment on above: Performed By: #### E RTRP #### [facility] [address] [place] [address] Platelets (Bld) [#/Vol] 129 thou/cmm Low 182-369 [facility] Comment on above: Performed By: #### E RTRP #### [facility] [address] [place] [address] RBC (Bld) [#/Vol] 3.71 mil/cmm Low 3.93-5.22 [facility] Comment on above: Performed By: #### E RTRP #### [facility] [address] [place] [address] RDW SD 52.1 fl High 36.4-46.3 [facility] Comment on above: Performed By: #### E RTRP #### [facility] [address] [place] [address] WBC (Bld) [#/Vol] 38.74 thou/cmm Critically high 3.98-10.0 4 [facility] Comment on above: Result Comment: Repe ated AND verified Performed By: #### E RTRP #### [place] [address] Hemogram/Diffon 07-03-2018 Abs. Baso 0.00 thou/cmm Low 0.01-0.08 [facility] Comment on above: Performed By: #### P T #### [facility] [address] [place] [address] Abs. Ramsey 0.00 thou/cmm Low 0.27-0.70 [facility] Comment on above: Performed By: #### P T #### [place] [address] Abs. Neut (ANC) 23.28 thou/cmm High 1.56-6.13 [facility] Comment on above: Performed By: #### P T #### [place] [address] Basophils/100 WBC (Bld) 0.0 % Normal [facility] Comment on above: Performed By: #### P T #### [place] [address] Eosinophils (Bld) [#/Vol] 0.00 thou/cmm Normal 0.00-0.31 [facility] Comment on above: Performed By: #### P T #### [facility] [address] [place], [place] [address] Eosinophils/100 WBC (Bld) 0.0 % Normal [facility] Comment on above: Performed By: #### P T #### [facility] [address] [place] [address] Erythrocyte distribution width (RBC) [Ratio] 14.8 % High 11.7-14.4 [facility] Comment on above: Performed By: #### P T #### [facility] [address] [place] [address] Hematocrit (Bld) [Volume fraction] 30.8 % Low 34.1-44.9 [facility] Comment on above: Performed By: #### P T #### [facility] [address] [place] [address] Hemoglobin (Bld) [Mass/Vol] 10.0 g/dL Low 11.2-15.7 [facility] Comment on above: Performed By: #### P T #### [facility] [address] [place] [address] Immat Grans Abs calc 0.51 Normal [facility] Comment on above: Performed By: #### P T #### [facility] [address] [place] [address] Lymphocytes (Bld) [#/Vol] 1.52 thou/cmm Normal 1.18-3.74 [facility] Comment on above: Performed By: #### P T #### [facility] [address] [place], [place] [address] Lymphocytes/100 WBC (Bld) 6.0 % Normal [facility] Comment on above: Performed By: #### P T #### [facility] [address] [place] [address] MCH (RBC) [Entitic mass] 31.3 pg Normal 25.6-32.2 [facility] Comment on above: Performed By: #### P T #### [facility] [address] [place] [address] MCHC (RBC) [Mass/Vol] 32.5 % Normal 31.6-34.8 [facility] Comment on above: Performed By: #### P T #### [facility] [address] [place] [address] MCV (RBC) [Entitic vol] 96.3 fL High 79.4-94.8 [facility] Comment on above: Performed By: #### P T #### [facility] [address] [place] [address] Metamyelocytes 2.0 % Normal [facility] Comment on above: Performed By: #### P T #### [facility] [address] [place] [address] Monocytes/100 WBC (Bld) 0.0 % Normal [facility] Comment on above: Performed By: #### P T #### [facility] [address] [place] [address] Platelet mean volume (Bld) [Entitic vol] 11.4 fL Normal 9.4-12.3 [facility] Comment on above: Performed By: #### P T #### [facility] [address] [place] [address] Platelets (Bld) [#/Vol] 108 thou/cmm Low 182-369 [facility] Comment on above: Performed By: #### P T #### [facility] [address] [place] [address] RBC (Bld) [#/Vol] 3.20 mil/cmm Low 3.93-5.22 [facility] Comment on above: Performed By: #### P T #### [facility] [address] [place] [address] RBC morphology finding Nom (Bld) Normal Normal [facility] Comment on above: Performed By: #### P T #### [facility] [address] [place] [address] RDW SD 52.3 fl High 36.4-46.3 [facility] Comment on above: Performed By: #### P T #### [place] [address] Seg Neutrophil 92.0 % Normal [facility] Comment on above: Performed By: #### P T #### [facility] [address] [place] [address] WBC (Bld) [#/Vol] 25.30 thou/cmm Critically high 3.98-10.0 4 [facility] Comment on above: Result Comment: Repe ated AND verified Performed By: #### P T #### [place] [address] Lactic Acidon 07-03-2018 Lactate [Moles/Vol] 2.2 mmol/L Critically high 0.4-2.0 [facility] Comment on above: Performed By: #### P T #### [place] [address] Lactate [Moles/Vol] 1.7 mmol/L Normal 0.4-2.0 [facility] Comment on above: Performed By: #### E RTRP #### [place] [address] Lactate [Moles/Vol] 2.1 mmol/L Critically high 0.4-2.0 [facility] Comment on above: Performed By: #### E RTRP #### [place] [address] NURSING PROGon 07-03-2018 NURSING PROG HNO ID: [id number] Author: Jacquelyn CisnerosRn) MATHEUS Juarez Service: Nursing Author Type: Registered Nurse Type: Nursing Progress Note Filed: 07/03/2018 8:15 AM Note Text: Blood cultures called from lab, positive negative bacilli, Dr. Allison updated. No new orders. Normal [facility] NUTRITIONon 07-03-2018 NUTRITION HNO ID: [id number] Author: Cristy Mathews RD Service: Nutrition Therapy Author Type: Registered Dietitian Type: Nutrition Filed: 07/03/2018 3:04 PM Note Text: Consult rec'd to follow for needs. RN uncertain at this time. Starting CL's. Follow for needs as diet transitions. Cherie Mathews RD,LD Pager [phone] Normal [facility] PROGRESSon 07-03-2018 PROGRESS HNO ID: [id number] Author: Durga Allison MD Service: Critical Care Author Type: Resident Type: Progress Notes Filed: 07/03/2018 2:52 PM Note Text: -- Attestation signed by Feliberto Romeo at 07/03/2018 5:07 PM [facility] STAFF PHYSICIAN NOTE OF PERSONAL [...] minutes. SIGNATURE: Feliberto Romeo MD [facility] PAGER:[phone] -- CRITICAL CARE PROGRESS NOTE SERVICE DATE: [...] atrial fibrillation, chronic pain syndrome presents from [facility] for evaluation of altered mental [...] to pain, but not answering questions, AOx0. [facility] staff sent UA and patient diagnosed with [...] Region Type 2 Diabetes Mellitus With Hyperglycemia ([facility]) Wounds, Multiple Paf (Paroxysmal Atrial Fibrillation) ([facility]) Osteoarthritis Hypertension Hyperlipemia Foot Ulcer ([facility]) Tia (Transient Ischemic Attack) Bmi 60.0-69.9, Adult ([facility]) Stroke ([facility]) Patient Noncompliant With Anticoagulant Medication Chronic Pain Cellulitis Morbid Obesity With Bmi of 70 and Over, Adult ([facility]) Severe Sepsis With Septic Shock ([facility]) PAST MEDICAL HISTORY Diagnosis Date - Back pain - Foot ulcer ([facility]) - Generalized weakness - Hip pain - Hyperlipemia - Hypertension - Morbid obesity ([facility]) - Muscle spasm of back - Osteoarthritis - PAF (paroxysmal atrial fibrillation) ([facility]) - Rotator cuff tear - Stroke ([facility]) - Type 2 diabetes mellitus with hyperglycemia ([facility]) PAST SURGICAL HISTORY Procedure Laterality Date - [...] July 03, 2018 TIME: 8:59 AM Normal [facility] Protimeon 07-03-2018 INR Coag (PPP) [Relative time] 1.27 {INR} Normal 0.90-1.30 [facility] Comment on above: Result Comment: Nerissa min K Antagonist (VKA) Therapeutic Range: INR 2 to 3 (Target INR of 2.5) Note: For patients treated with VKA drugs, such as warfarin, the [place] 2012 Guideline recommends [...] Chest 2012; 141:7S-47S Pete RA, et al. [facility] 2017; 70: 252-289 Performed By: #### P T #### [address] [address] PT Coag (PPP) [Time] 13.0 s Normal 9.7-13.0 [facility] Comment on above: Performed By: #### P T #### [address] [address] THERAPY NTon 07-03-2018 THERAPY NT HNO ID: [id number] Author: Gloria Yostr/Teresa Montesinos Service: Occupational Therapy Author Type: Occupational Therapist Type: Therapy (PT/OT/Speech/Resp) Filed: 07/03/2018 3:00 PM Note Text: OCCUPATIONAL THERAPY MISSED VISIT SERVICE DATE: 07/03/2018 SERVICE TIME: 1457 to 1457 ROOM: [place] [address] Attempted Evaluation. Patient not seen due to Other: See Comment(Patient is a raheem lift at baseline and requires assist with ADL's. Patient no longer receives therapy at her facility and declines therapy at this time. Patient yells out in pain (01/09)).Will discontinue OT at this time. SIGNATURE: EARL Stone/Gómez PATIENT NAME: Salazar Coyle DATE: July 03, 2018 TIME: 2:59 PM Normal [facility] THERAPY NT HNO ID: [id number] Author: Ivy Chilel Service: Physical Therapy Author Type: Physical Therapist Type: Therapy (PT/OT/Speech/Resp) Filed: 07/03/2018 10:37 AM Note Text: PHYSICAL THERAPY MISSED VISIT SERVICE DATE: 07/03/2018 SERVICE TIME: 1034 to 1034 ROOM: [place] [address] Attempted Evaluation. Patient not seen due to Other: See Comment. Patient states she requires a raheem lift for transfers and no longer receives therapy at her facility. Will discontinue therapy services at this time as the patient is dependent for mobility. SIGNATURE: Ivy Chilel PT PATIENT NAME: Salazar Coyle DATE: July 03, 2018 TIME: 10:36 AM Normal [facility] Troponin Ion 07-03-2018 Troponin I.cardiac [Mass/Vol] 0.039 ng/mL Normal 0.015-0.045 [facility] Comment on above: Performed By: #### E RTRP #### [facility] [address] [place], [place] [address] Vancomycin,Troughon 07-04-19 19 Vancomycin,Trough 11.7 mg/L Normal 10.0-20.0 [facility] Comment on above: Performed By: #### E RTRP #### [facility] [address] [place], [place] [address] Activated PTTon 07-02-2018 aPTT Coag (Bld) [Time] 46.5 s High 23.0-32.4 [facility] Comment on above: Result Comment: Unfr actionated [...] laboratory APTT reagent in use throughout the [facility]. Performed By: #### C BC1 #### [facility] [address] [place], [place] [address] CPKon 07-02-2018 CK [Catalytic activity/Vol] 519 U/L High 26-192 [facility] Comment on above: Performed By: #### C BC1 #### [facility] [address] [place], [place] [address] Comprehensive Panelon 2018 ALP [Catalytic activity/Vol] 117 U/L High 46-116 [facility] Comment on above: Performed By: #### P 14 #### [facility] [address] [place], [place] [address] Protein [Mass/Vol] 6.5 g/dL Normal 6.4-8.2 [facility] Comment on above: Performed By: #### P 14 #### [facility] [address] [place], [place] [address] Bilirubin [Mass/Vol] 1.2 mg/dL High 0.2-1.0 [facility] Comment on above: Performed By: #### P 14 #### [facility] [address] [place], [place] [address] ALT [Catalytic activity/Vol] 14 U/L Normal 12-78 [facility] Comment on above: Performed By: #### P 14 #### [facility] [address] [place], [place] [address] AST [Catalytic activity/Vol] 18 U/L Normal 9-37 [facility] Comment on above: Performed By: #### P 14 #### [facility] [address] [place], [place] [address] Creatinine [Mass/Vol] 1.35 mg/dL High 0.51-0.95 [facility] Comment on above: Performed By: #### P 14 #### [facility] [address] [place], [place] [address] Glucose [Mass/Vol] 182 mg/dL High 70-99 [facility] Comment on above: Performed By: #### P 14 #### [facility] [address] [place], [place] [address] Albumin [Mass/Vol] 2.5 g/dL Low 3.4-5.0 [facility] Comment on above: Performed By: #### P 14 #### [facility] [address] [place], [place] [address] Anion gap [Moles/Vol] 13 mmol/L Normal 8-16 [facility] Comment on above: Performed By: #### P 14 #### [facility] [address] [place], [place] [address] Calcium [Mass/Vol] 8.4 mg/dL Low 8.5-10.1 [facility] Comment on above: Performed By: #### P 14 #### [facility] [address] [place], [place] [address] CO2 [Moles/Vol] 26 mmol/L Normal 21-32 [facility] Comment on above: Performed By: #### P 14 #### [facility] [address] [place], [place] [address] Urea nitrogen [Mass/Vol] 20 mg/dL High 7-18 [facility] Comment on above: Performed By: #### P 14 #### [facility] [address] [place], [place] [address] Chloride [Moles/Vol] 104 mmol/L Normal 98-107 [facility] Comment on above: Performed By: #### P 14 #### [facility] [address] [place], [place] [address] Potassium [Moles/Vol] 3.8 mmol/L Normal 3.5-5.1 [facility] Comment on above: Performed By: #### P 14 #### [facility] [address] [place], [place] [address] Sodium [Moles/Vol] 139 mmol/L Normal 136-145 [facility] Comment on above: Performed By: #### P 14 #### [facility] [address] [place], [place] [address] Cult Bloodon 07-02-2018 Cult Blood Test performed at [facility] No growth Normal [facility] Comment on above: Performed By: #### P T #### [facility] [address] [place], [place] [address] Cult Blood Test performed at [facility] +Gram stain bottle I: Gram negative bacilli +Gram stain bottle II: Gram negative bacilli ORGANISM: *Proteus mirabilis (ID: 1) cultured in both bottles Normal [facility] Comment on above: Performed By: #### E RTRP #### [facility] [address] [place], [place] [address] Cult Urineon 07-02-2018 Cult Urine Test performed at [facility] Organisms cultured are indicative of probable nonclean catch specimen or contamination of specimen collection system. No further identification or susceptibility testing will be performed. Please submit new specimen. Plates will be held for 5 days. Normal [facility] Comment on above: Performed By: #### P T #### [facility] [address] [place] [address] ECU Troponin Ion 07-02-2018 Troponin I.cardiac [Mass/Vol] 0.062 ng/mL High 0.015-0.045 [facility] Comment on above: Performed By: #### E RTRP #### [facility] [address] [place] [address] Troponin I.cardiac [Mass/Vol] 0.076 ng/mL High 0.015-0.045 [facility] Comment on above: Performed By: #### E RTRP #### [facility] [address] [place] [address] ED NOTEon 07-02-2018 ED NOTE HNO ID: [id number] Author: Sandra CisnerosRnJulio Quiroz RN Service: Emergency Medicine Author Type: Registered Nurse Type: ED Notes Filed: 07/02/2018 2:37 PM Note Text: Anila Lee [phone] [facility] ED NOTE HNO ID: [id number] Author: Charis Wilson RN Service: Emergency Medicine Author Type: Registered Nurse Type: ED Notes Filed: 07/02/2018 9:26 AM Note Text: Blood cultures drawn and sent. [facility] ED NOTE HNO ID: [id number] Author: Charis Wilson RN Service: Emergency Medicine Author Type: Registered Nurse Type: ED Notes Filed: 07/02/2018 9:26 AM Note Text: Pulled facility jose. Bag full of blood and blood clots. Dark red blood. 400cc out. [facility] ED NOTE HNO ID: [id number] Author: Dinah Ca RN Service: ? Author Type: Registered Nurse Type: ED Notes Filed: 07/02/2018 9:06 AM Note Text: Bed: 01-ED Expected date: Expected time: Means of arrival: Comments: ROOM #28 [facility] ED NOTE HNO ID: [id number] Author: Oliver CisnerosRn) MATHEUS Roman Service: Emergency Medicine Author Type: Registered Nurse Type: ED Notes Filed: 07/02/2018 6:47 AM Note Text: Pt in significant pain upon any movement. Pt unable to tolerate movement from this rn. 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 Author Type: Registered Nurse Type: ED Notes Filed: 07/02/2018 6:35 AM Note Text: Bed: 28-ED Expected date: Expected time: Means of arrival: Comments: Kat-mental status change Normal [facility] ED PROV NOTEon 07-02-2018 ED PROV NOTE HNO ID: [id number] Author: Nilay West MD Service: Emergency Medicine [...] the following condition(s): Cardiovascular impairment, Respiratory impairment, STREET LIGHT SERVICER impairment, Shock and Cardiac Arrest, which the [...] MD Nilay Salgado MD 07/02/18 1556 Normal [facility] ED PROV NOTE HNO ID: [id number] Author: Nilay West MD Service: Emergency Medicine Author Type: Physician Type: ED Provider Notes Filed: 07/02/2018 3:54 PM Note Text: ED Provider Note Patient Name: Salazar Coyle SERVICE DATE: 07/02/18 History Patient presents with: Altered Level Of Consciousness: pt arrives via [facility] from [facility] for change in mental status. pt recently [...] altered mental status. This morning, according to long-term staff she was not alert and oriented [...] - Osteoarthritis - PAF (paroxysmal atrial fibrillation) ([facility]) - Rotator cuff tear - Stroke ([facility]) - Type 2 diabetes mellitus with hyperglycemia [...] Impression ED Course as of Jul 02 932 Shine Foley's Documentation Tue Jul 02, 2018 0818 WBC: (!) 19.50 [...] the patient and will place central line. 0835 Creatinine: (!) 1.35 Clinical Impressions as of Jul 02 932 Septic shock (HCC) Urinary tract infection associated with indwelling urethral catheter, initial encounter ([facility]) Panniculitis WHITLEY (acute kidney injury) ([facility]) MDM / Disposition / Plan 67-year-old female presents with signs and symptoms concerning for septic shock secondary to catheter associated urinary tract infection. She reportedly was diagnosed with URI tract infection and long-term but she does not have antibiotics on [...] 0933 Nilay West MD 07/02/18 1554 Normal [facility] HISTORY PHYSICALon HISTORY PHYSICAL HNO ID: [id number] Author: Macy Ramon MD Service: Critical Care Author Type: Resident Type: HANDP Filed: 07/02/2018 10:22 AM Note Text: -- Attestation signed by Bear Santana at 07/02/2018 10:59 AM (Updated) [facility] STAFF PHYSICIAN NOTE OF PERSONAL INVOLVEMENT IN CARE I have reviewed the history and physical examination obtained and documented by the resident and I personally participated in the arias components. I have discussed the case and management of the patient's care. The following comments revise or confirm relevant arias components of the note. 67yo WF F resident due to immobility as a result [...] for input(s): VPH, VPC2, VPO2C, RESPHCO3, BASEX, [id number], PH, PCO2, RESPHCO3, BASEX, [id number] in the last 168 hours. Invalid input(s): PO2C CXR: No focal infiltrate No PTX CBC: Recent Labs 07/02/18 07 WBC 19.50* HB 13.4 HCT 42.1 PLT 220 MCV 98.8* COAG: Recent Labs 07/02/18728 INR 1.16 BMP: Recent Labs 07/02/18728 GLUC 182* NA 139 K 3.8 CHLOR 104 CO2 26 ANION 13 BUN 20* CREAT 1.35* CHEM: Recent Labs 07/02/18728 ALB 2.5* TPROT 6.5 CA 8.4* HEPATIC: Recent Labs 07/02/18728 ALKPHOS 117* ALT 14 AST 18 TBILI 1.2* CARDIAC: Recent Labs 07/02/18 0729 PBNP 2,347 IMPRESSION: Septic shock secondary to [...] of care, medical plan for the day, data management consultant recommendations, medical disposition and current medical [...] services: 50 minutes. SIGNATURE: Bear Santana MD [facility] PAGER:[phone] DATE of SERVICE: July 02, 2018 TIME [...] atrial fibrillation, chronic pain syndrome presents from [facility] for evaluation of altered mental [...] Region Type 2 Diabetes Mellitus With Hyperglycemia ([facility]) Wounds, Multiple Paf (Paroxysmal Atrial Fibrillation) ([facility]) Osteoarthritis Hypertension Hyperlipemia Foot Ulcer ([facility]) Tia (Transient Ischemic Attack) Bmi 60.0-69.9, Adult ([facility]) Stroke ([facility]) Patient Noncompliant With Anticoagulant Medication Chronic Pain Cellulitis Morbid Obesity With Bmi of 70 and Over, Adult ([facility]) PAST MEDICAL HISTORY Diagnosis Date - Back pain - Foot ulcer ([facility]) - Generalized weakness - Hip pain - Hyperlipemia - Hypertension - Morbid obesity ([facility]) - Muscle spasm of back - Osteoarthritis - PAF (paroxysmal atrial fibrillation) ([facility]) - Rotator cuff tear - Stroke ([facility]) - Type 2 diabetes mellitus with hyperglycemia ([facility]) PAST SURGICAL HISTORY Procedure Laterality Date - [...] Drain Indwelling Urinary Catheter 07/02/18 Admission to [facility] Jose less than 1 day PHYSICAL [...] PTSEC 11.9 INR 1.16 ABG: Invalid input(s): [id number] Assessment/Plan IMPRESSION: Critical Care Documentation: The patient [...] July 02, 2018 TIME: 8:59 AM Normal [facility] Hemogramon 07-02-2018 Erythrocyte distribution width (RBC) [Ratio] 14.2 % Normal 11.7-14.4 [facility] Comment on above: Performed By: #### C BC1 #### [facility] [address] [place] [address] Hematocrit (Bld) [Volume fraction] 42.1 % Normal 34.1-44.9 [facility] Comment on above: Performed By: #### C BC1 #### [facility] [address] [place], [place] [address] Hemoglobin (Bld) [Mass/Vol] 13.4 g/dL Normal 11.2-15.7 [facility] Comment on above: Performed By: #### C BC1 #### [facility] [address] [place] [address] MCH (RBC) [Entitic mass] 31.5 pg Normal 25.6-32.2 [facility] Comment on above: Performed By: #### C BC1 #### [facility] [address] [place], [place] [address] MCHC (RBC) [Mass/Vol] 31.8 % Normal 31.6-34.8 [facility] Comment on above: Performed By: #### C BC1 #### [facility] [address] [place], [place] [address] MCV (RBC) [Entitic vol] 98.8 fL High 79.4-94.8 [facility] Comment on above: Performed By: #### C BC1 #### [facility] [address] [place], [place] [address] Platelet mean volume (Bld) [Entitic vol] 11.3 fL Normal 9.4-12.3 [facility] Comment on above: Performed By: #### C BC1 #### [facility] [address] [place], [place] [address] Platelets (Bld) [#/Vol] 220 thou/cmm Normal 182-369 [facility] Comment on above: Performed By: #### C BC1 #### [facility] [address] [place] [address] RBC (Bld) [#/Vol] 4.26 mil/cmm Normal 3.93-5.22 [facility] Comment on above: Performed By: #### C BC1 #### [facility] [address] [place] [address] RDW SD 50.8 fl High 36.4-46.3 [facility] Comment on above: Performed By: #### C BC1 #### [facility] [address] [place] [address] WBC (Bld) [#/Vol] 19.50 thou/cmm High 3.98-10.04 [facility] Comment on above: Performed By: #### C BC1 #### [place] [address] Hgb A1con 07-02-2018 HbA1c (Bld) [Mass fraction] 6.6 % High 4.2-6.3 [facility] Comment on above: Result Comment: Meth od is National Glycohemoglobin Standardization Program (NGSP) compliant. Performed By: #### C BC1 #### [facility] [address] [place] [address] HbA1c (Bld) [Mass fraction] 143 mg/dl Normal [facility] Comment on above: Performed By: #### C BC1 #### [facility] [address] [place] [address] Lactic Acidon 07-02-2018 Lactate [Moles/Vol] 3.0 mmol/L Critically high 0.4-2.0 [facility] Comment on above: Performed By: #### E RTRP #### [place] [address] Lactate [Moles/Vol] 3.5 mmol/L Critically high 0.4-2.0 [facility] Comment on above: Performed By: #### C BC1 #### [facility] [address] [place], [place] [address] Lactate [Moles/Vol] 4.6 mmol/L High 0.5-2.2 [facility] Comment on above: Performed By: #### E DLAG #### [facility] [address] [place], [place] [address] MRSA Screenon 07-02-2018 MRSA DNA EZIO+probe Ql (Unsp spec) Test performed at [facility] No MRSA detected. Normal [facility] Comment on above: Performed By: #### P 14 #### [facility] [address] [place], [place] [address] Magnesium Bloodon 07-02-2018 Magnesium [Mass/Vol] 1.5 mg/dL Low 1.6-2.6 [facility] Comment on above: Performed By: #### C BC1 #### [facility] [address] [place] [address] N-terminal Pro-BNPon 019 Natriuretic peptide B (Bld) [Mass/Vol] 2347 pg/mL Normal [facility] Comment on above: Result Comment: Acut e CHF Rule-in <50 yrs old >= 450 pg/ml >50 yrs old >= 900 pg/ml Abnormal Pro-BNP All patients >=300 pg/ml Performed By: #### P BNP #### [facility] [address] [place], [place] [address] PLAN OF CAREon 07-02-2018 PLAN OF CARE HNO ID: [id number] Author: Judy Lemon (Pharmacist) Service: ? Author Type: Pharmacist Type: Plan of Care Filed: 07/02/2018 4:55 PM Note Text: MEDICATION HISTORY AND MEDICATION RECONCILIATION Patient Name:Keya Coyle : 1950 Source of history:USP/Other [facility] Medication Nonadherence Identified: No barriers noted The above information represents the best possible medication history: Yes Reconciliation completed? Yes All RENAL CASE MANAGER medications addressed by LIP Additional comments: Per long-term, patient only received lidocaine patch this morning prior to hospital transfer. All other morning medications were not administered. Allergies: ALLERGIES No Known Allergies Preferred Pharmacy: [facility] [phone] Current RENAL CASE MANAGER Medications: Prior to Admission medications as of [...] LEMON, PHARMACIST July 02, 2018 4:[address] [facility] PLAN OF CARE HNO ID: [id number] Author: Rocio Andrade (Light Bulb Assembler) Service: Pharmacy Author Type: In Flight Technician Type: Plan of Care Filed: 07/02/2018 9:26 AM Note Text: MEDICATION HISTORY Patient Name:Keya Coyle : 1950 Source of history:USP/Other [facility] - [facility] Medication Nonadherence Identified: No barriers noted The above information represents the best possible medication history: Yes Additional comments: Med list obtained from Kat Garcia . [facility] not receive all of her morning medications. The only medication they administered was her lidocaine patches at 0600 today (07/02/2018). Allergies: ALLERGIES No Known Allergies Preferred Pharmacy: N/A Current RENAL CASE MANAGER Medications: Prior to Admission medications as of [...] Reviewing Patient's Medications: 40 minutes Rocio Andrade (Light Bulb Assembler) [phone] July 02, 2018 9:15 AM Normal [facility] PROCEDUREon 07-02-2018 PROCEDURE HNO ID: [id number] Author: Macy Ramon MD Service: Critical Care [...] SERVICE DATE: 07/02/2018 SERVICE TIME: 829 LOCATION: EDED CATHETER PLACEMENT: Elective PRE-PROCEDURE CHECKLIST: Consent obtained [...] July 02, 2018 TIME: 11:05 AM Normal [facility] Phosphorus Bloodon 9 Phosphate [Mass/Vol] 2.4 mg/dL Low 2.5-4.9 [facility] Comment on above: Performed By: #### C BC1 #### [facility] [address] [place], [place] [address] Protimeon 07-02-2018 INR Coag (PPP) [Relative time] 1.16 {INR} Normal 0.90-1.30 [facility] Comment on above: Result Comment: Nerissa min K Antagonist (VKA) Therapeutic Range: INR 2 to 3 (Target INR of 2.5) Note: For patients treated with VKA drugs, such as warfarin, the [place] 2012 Guideline recommends [...] [phone] Performed By: #### P T #### [facility] [address] [place], [place] [address] PT Coag (PPP) [Time] 11.9 s Normal 9.7-13.0 [facility] Comment on above: Performed By: #### P T #### [facility] [address] [place], [place] [address] Troponin Ion 07-02-2018 Troponin I.cardiac [Mass/Vol] 0.050 ng/mL High 0.015-0.045 [facility] Comment on above: Performed By: #### C BC1 #### [place] [address] Troponin I.cardiac [Mass/Vol] 0.056 ng/mL High 0.015-0.045 [facility] Comment on above: Performed By: #### C BC1 #### [place] [address] Urinalysis Routineon 019 Bacteria LM.HPF (Urine sed) [#/Area] 4+ Abnormal None [facility] Comment on above: Performed By: #### U RIN2 #### [place] [address] Bilirubin (U) [Mass/Vol] * Normal Negative [facility] Comment on above: Performed By: #### U RIN2 #### [place] [address] Comment Urines See Below Normal [facility] Comment on above: Result Comment: [place] r abnormal-macroscopic not done. Performed By: #### U RIN2 #### [place] [address] Ep Cells Urine NONE Normal 0.0-5.0 [facility] Comment on above: Performed By: #### U RIN2 #### [place] [address] Glucose Ql (U) * Normal Negative [facility] Comment on above: Performed By: #### U RIN2 #### [place] [address] Hemoglobin,Urine * Normal Negative [facility] Comment on above: Performed By: #### U RIN2 #### [place] [address] Hyaline Cast NONE Normal 0.0-1.0 [facility] Comment on above: Performed By: #### U RIN2 #### [place] [address] Ketone Urine * Normal Negative [facility] Comment on above: Performed By: #### U RIN2 #### [facility] [address] [place] [address] Leukocytes Esterase * Normal Negative [facility] Comment on above: Performed By: #### U RIN2 #### [place] [address] Nitrites Urine * Normal Negative [facility] Comment on above: Performed By: #### U RIN2 #### [facility] [address] [place] [address] pH (U) * Normal 5.0-8.0 [facility] Comment on above: Performed By: #### U RIN2 #### [place] [address] Protein (U) [Mass/Vol] * Normal Negative [facility] Comment on above: Performed By: #### U RIN2 #### [place] [address] RBC LM.HPF (Urine sed) [#/Area] /[HPF] High 0.0-5.0 [facility] Comment on above: Performed By: #### U RIN2 #### [place] [address] Specific [place], Ur 1.024 Normal 1.005-1.030 [facility] Comment on above: Performed By: #### U RIN2 #### [place] [address] Urobilinogen,Ur * Normal 0.0-1.0 [facility] [facility] Comment on above: Performed By: #### U RIN2 #### [place] [address] WBC LM.HPF (Urine sed) [#/Area] 36.0-50 Abnormal 0.0-5.0 [facility] Comment on above: Performed By: #### U RIN2 #### [place] [address] Appearance (U) 3+ (CLOUDY) Normal [facility] Comment on above: Performed By: #### U RIN2 #### [facility] [address] [place], [place] [address] Color (U) RED Normal [facility] Comment on above: Performed By: #### U RIN2 #### [facility] [address] [place], [place] [address] Venous Blood Gason 9 Base Excess -1.3 mmol/L Normal -3.0-3.0 [facility] Comment on above: Performed By: #### C BC1 #### [facility] [address] [place] [address] HCO3 (Bld) [Moles/Vol] 24.5 mmol/L Normal 21.0-30.0 [facility] Comment on above: Performed By: #### C BC1 #### [facility] [address] [place], [place] [address] O2% Sat Venous 95.6 % High 18.0-74.8 [facility] Comment on above: Performed By: #### C BC1 #### [facility] [address] [place], [place] [address] PCO2 Venous 48.6 mm Hg Normal 40.6-60.0 [facility] Comment on above: Performed By: #### C BC1 #### [facility] [address] [place], [place] [address] pH Venous 7.323 Normal 7.320-7.430 [facility] Comment on above: Performed By: #### C BC1 #### [facility] [address] [place], [place] [address] PO2 Venous 80.1 mm Hg High 15.9-37.5 [facility] Comment on above: Performed By: #### C BC1 #### [facility] [address] [place] [address] Base Excess -3.2 mEq/L Low -2.5 to 2.5 [facility] Comment on above: Performed By: #### E DVBG #### [facility] [address] [place], [place] [address] HCO3 (Bld) [Moles/Vol] 22.2 mmol/L Normal 21.0-30.0 [facility] Comment on above: Performed By: #### E DVBG #### [facility] [address] [place], [place] [address] PCO2 Venous 43.9 mm Hg Normal 40.6-60.0 [facility] Comment on above: Performed By: #### E DVBG #### [facility] [address] [place], [place] [address] pH Venous 7.324 Normal 7.320-7.430 [facility] Comment on above: Performed By: #### E DVBG #### [facility] [address] [place], [place] [address] PO2 Venous 50.4 mm Hg High 15.9-37.5 [facility] Comment on above: Performed By: #### E DVBG #### [facility] [address] [place], [place] [address] ED NOTEon 02-21-2018 ED NOTE HNO ID: [id number] Author: Dalia Hammond) MATHEUS Mayer Service: Emergency Medicine Author Type: Registered Nurse Type: ED Notes Filed: 02/21/2018 6:39 AM Note Text: [facility] to pick patient up Normal [facility] ED NOTE HNO ID: [id number] Author: Dalia Hammond) MATHEUS Mayer Service: Emergency Medicine Author Type: Registered Nurse Type: ED Notes Filed: 02/21/2018 5:09 AM Note Text: Spoke with RES regarding patient's want to speak with him Normal [facility] ED NOTE HNO ID: [id number] Author: Dalia Hammond) MATHEUS Mayer Service: Emergency Medicine Author Type: Registered Nurse Type: ED Notes Filed: 02/21/2018 3:26 AM Note Text: Per EMS, long-term staff was transferring patient into new bed via raheem lift. Patient is over 500 lbs and once they laid patient down in bed she began carrying on that her right leg/hip is hurting. Per long-term staff right hip pain is chronic Normal [facility] ED NOTE HNO ID: [id number] Author: Charis CisnerosRnJulio Bennett RN Service: (none) Author Type: Registered Nurse Type: ED Notes Filed: 02/21/2018 3:14 AM Note Text: Bed: 10-ED Expected date: Expected time: Means of arrival: Comments: [place]/hip pain Normal [facility] ED PROV NOTEon 02-21-2018 ED PROV NOTE HNO ID: [id number] Author: Nany Ward DO Service: Emergency Medicine [...] evaluation of right hip pain. Per EMS, long-term staff was transferring patient into new bed [...] 3V PELV/AP/LAT RT Result Value Ref Range Environmental Adviser TECHNIQUE: KNEE LIMITED 2V AP/LAT RIGHT, FEMUR [...] 2V AP/LAT RT Result Value Ref Range Environmental Adviser TECHNIQUE: KNEE LIMITED 2V AP/LAT RIGHT, FEMUR [...] 2V AP/LAT RT Result Value Ref Range Environmental Adviser TECHNIQUE: KNEE LIMITED 2V AP/LAT RIGHT, FEMUR [...] Impression ED Course as of Feb 21 0552 Nany Ward's Documentation [facility] Feb 21, 2018 0528 ED Attending [...] (Res) MD Erica Resident 02/21/18 0523 Nany Ward, 02/21/[address] [facility] CASE MANAGEMon 01-16-2018 CASE MANAGEM HNO ID: [id number] Author: Swathi (Rn) MATHEUS Mart Service: Care Management Author Type: Registered Nurse Type: Care Mgt Progress Note Filed: 01/16/2018 12:09 PM Note Text: CARE MANAGEMENT DISCHARGE NOTE SERVICE DATE: 01/16/2018 SERVICE TIME: 12:02 PM LOS: 11 days Admission Date: 01/04/2018 DISCHARGE ARRANGEMENT (list agency and phone number) [facility] facility: Was an expedited discharge program used? No Provider: Jacquelin Garcia TRANSPORTATION ARRANGEMENTS: Mode of Transportation: Ambulance Transportation Agency and Phone #: [employer] [phone]. Date of Trip: 01/16/2018 Type of Service: Bariatric BLS Non-emergency Is Patient Medicaid Pending: No Discussion of financial coverage occurred with Spouse Jesus. Customer Sales Consultant Location: [facility]- [place] [address] Destination: [facility] Financial Care Management Responsibility: None Estimated Charge: N/A Approving Concentrator Operator: N/A ADDITIONAL CONTACT RESOURCES: Discharge Information Row Name ED to Hosp-Admission (Current) from 01/04/2018 in [facility] T[facility] Facility Agency Unique Garcia Precert obetained for patient to be discharged to [facility]. - Dr. Lemon notified- orders completed. Transportation set up via cot -( bariatric) for earliest available - 3:30pm. Patient updated at bedside, RN- Radha updated, facility updated and spouse Jesus updated via - [phone]. SIGNATURE: Swathi Mart RN PATIENT NAME: Salazar Coyle DATE: January 16, 2018 TIME: 12:02 PM PAGER/CONTACT #: [phone] [facility] CONSULT PROGon 01-16-2018 CONSULT PROG HNO ID: [id number] Author: Bashir Romero Service: Endocrinology Author Type: [...] (CULTURELLE) capsule 1 capsule ORAL BID Araceli Lemon benzocaine-menthol 1 Lozenge (CEPACOL) 1 Lozenge [...] PRN Vidya Layton Scantling 10 mg at 01/16/18 09 ceFAZolin iv piggyback 2 g in D5W (iso-osmotic) 100 mL (ANCEF) 2 g INTRAVENOUS q 8 HR Diego Obando Last Rate: 200 mL/hr at 01/16/18 0347 2 g at 01/16/18 034 oxyCODONE IR 5 mg tab(s) (ROXICODONE) 5 mg ORAL q 4 H PRN Carlos Roberts Preethi 5 mg at 01/16/18 09 albuterol 2.5 mg /3 mL (0.083 %) 2.5 mg (PROVENTIL) 2.5 mg INHALATION q 4 H PRN Luisu (Res) Jolene ipratropium-albuterol 3 mL nebulizer solution (DUONEB) 3 mL INHALATION q 4 H while awake Ki (Res) Pannikottu 3 mL at 01/15/18 194 potassium chloride 80-120 mEq oral liquid 80-120 [...] Zachariah (Res) MD Kim 3 mL at 01/15/181999 dextrose 40 % 15 g 15 g [...] Jesus Galindo DO 600 mg at 01/16/18 0919 atorvastatin 40 mg tab(s) (LIPITOR) 40 mg ORAL AT BEDTIME Jesus Galindo DO 40 mg at 01/15/181954 losartan 100 mg tab(s) (COZAAR) 100 mg ORAL DAILY Jesus Galindo DO 100 mg at 01/16/18 0932 metoprolol tartrate (short acting) 12.5 mg tab(s) (LOPRESSOR) 12.5 mg ORAL q 12 H Jesus Galindo DO 12.5 mg at 01/15/182006 amLODIPine 5 mg tab(s) (NORVASC) 5 mg ORAL DAILY Jesus Keselman, DO 5 mg at 01/15/18 0805 apixaban 5 mg tab(s) (ELIQUIS) 5 mg ORAL BID Jesus Keselman, DO 5 mg at 01/16/18 0919 bisacodyl 10 mg suppository (DULCOLAX) 10 mg RECTAL DAILY PRN Jesus Keselman, DO miconazole 2 % 1 application topical [...] 16, 2018 TIME: 10:42 AM PAGER/CONTACT #: [phone] [facility] PROGRESSon 01-16-2018 PROGRESS HNO ID: [id number] Author: Araceli Lemon Service: Hospital Medicine Author [...] 65 63 (!) 48 (!) 56 Resp: 18 Temp: 36.9 ?C (98.4 ?F) 36.8 ?C [...] however given these limitations I will c/w eliquis # DM II - BS improved, but still not at goal, appreciate endocrine recs Plan of Care discussed with : Patient, Nurse, CM DVT PPx: felecia Dispo: SNF - await precert Araceli Andrade Physician [facility] CASE MANAGEMon 01-15-2018 CASE MANAGEM HNO ID: [id number] Author: Swathi (Rn) MATHEUS Mart Service: Care [...] 15, 2018 TIME: 3:44 PM PAGER/CONTACT #: [phone] [facility] CASE MGT INIT ASSESon 2017 CASE MGT INIT ASSES HNO ID: [id number] Author: Swathi CisnerosRn) MATHEUS Mart Service: Care Management Author Type: Registered Nurse Type: Care Mgt Initial Assessment Filed: 01/15/2018 3:32 PM Note Text: CARE MANAGEMENT PROGRESS NOTE SERVICE DATE: 01/15/2018 SERVICE TIME: 3:27 PM LOS: 10 days Progress Note No precert obtained. Placed call to [facility]- ext [phone] to inquire on the delay on precert. SIGNATURE: Swathi Mart RN PATIENT NAME: Salazar Coyle DATE: January 15, 2018 TIME: 3:27 PM PAGER/CONTACT #: [phone] [facility] CONSULTon 01-15-2018 CONSULT HNO ID: [id number] Author: Bashir Romero Service: Endocrinology Author Type: [...] since that time. She was readmitted to [facility] 01/05/18 for LE cellulitis. She has [...] PRN Vidya Layton Scantling 10 mg at 01/15/18 0804 ceFAZolin iv [...] QID Jesus Galindo DO 600 mg at 01/15/18 0804 atorvastatin 40 mg tab(s) (LIPITOR) 40 mg ORAL AT BEDTIME Jesus Galindo DO 40 mg at 01/14/18 203 losartan 100 mg tab(s) (COZAAR) 100 mg ORAL DAILY Jesus Galindo DO 100 mg at 01/15/18 0805 metoprolol tartrate (short acting) 12.5 mg tab(s) (LOPRESSOR) 12.5 mg ORAL q 12 H Jesus Galindo, DO 12.5 mg at 01/15/18804 amLODIPine 5 mg tab(s) (NORVASC) 5 mg ORAL DAILY Jesusling Acostaan, DO 5 mg at 01/15/18 08 apixaban 5 mg tab(s) (ELIQUIS) 5 mg ORAL BID Jesus Acostaan, DO 5 mg at 01/15/18 08 bisacodyl 10 mg suppository (DULCOLAX) 10 mg RECTAL DAILY PRN Jesus Galindo, DO miconazole 2 % 1 application topical powder (LOTRIMIN AF, DESENEX) 1 application TOPICAL BID Julio C Obando 1 application at 01/15/18 08 Allergies As of Date: 01/04/2018 (No Known [...] January 15, 2018 TIME: 8:37 AM Normal [facility] PROGRESSon 01-15-2018 PROGRESS HNO ID: [id number] Author: Susan Greco Service: Hospital Medicine Author [...] PAF hx- DC when precert obtained Normal [facility] CASE MANAGEMon 01-14-2018 CASE MANAGEM HNO ID: [id number] Author: Swathi CisnerosRn) MATHEUS Mart Service: Care Management Author Type: Registered Nurse Type: Care Mgt Progress Note Filed: 01/14/2018 12:19 PM Note Text: CARE MANAGEMENT PROGRESS NOTE SERVICE DATE: 01/14/2018 SERVICE TIME: 12:18 PM LOS: 9 days Progress Note PT/OT updates sent to facility for precert. SIGNATURE: Swathi Mart RN PATIENT NAME: Salazar Coyle DATE: January 14, 2018 TIME: 12:18 PM PAGER/CONTACT #: [phone] [facility] CASE MANAGEM HNO ID: [id number] Author: Swathi Hammond) MATHEUS Mart Service: Care Management Author Type: Registered Nurse Type: Care Mgt Progress Note Filed: 01/14/2018 9:17 AM Note Text: CARE MANAGEMENT PROGRESS NOTE SERVICE DATE: 01/14/2018 SERVICE TIME: 9:16 AM LOS: 9 days Progress Note PT/OT paged for therapy updates for precert to go to [facility]. Await precert and continue to follow. SIGNATURE: Swathi Mart RN PATIENT NAME: Salazar Coyle DATE: January 14, 2018 TIME: 9:16 AM PAGER/CONTACT #: [phone] [facility] CONSULTon 01-14-2018 CONSULT HNO ID: [id number] Author: George Ayers Service: Podiatry Author Type: [...] January 14, 2018 TIME: 9:02 PM PAGER: [phone] [facility] PROGRESSon 01-14-2018 PROGRESS HNO ID: [id number] Author: Susan Greco Service: Hospital Medicine Author [...] (97.7 ?F) Oral 60 18 96 % 10/14/18 2124 - - - 69 20 - 01/13/182115 [...] 2018 TIME: 1:46 PM PAGER/CONTACT #: Marly [facility] THERAPY NTon 01-14-2018 THERAPY NT HNO ID: [id number] Author: Tye Brand) Catalina Service: Physical Therapy Author Type: Amusement Centre Manager Type: Therapy (PT/OT/Speech/Resp) Filed: 01/14/2018 12:01 PM Note Text: -- Attestation signed by Cristy Fonseca at 01/14/2018 2:27 PM I reviewed and agree with the documentation corresponding to this therapy visit. SIGNATURE: Cristy Fonseca PT DATE: January 14, 2018 TIME: 2:27 PM -- Physical Therapy Treatment SERVICE DATE: 01/14/2018 SERVICE TIME: 1112 to 1135 ROOM: [place] [address] Recommended Discharge Disposition: Subacute/SNF Justification For Post [...] symptoms and signs-other Interventions Provided: Therapeutic Activity (82289);Therapeutic Exercise (82202) Therapeutic Exercise (35705) Treatment Minutes: 8 0 units Skilled Intervention(s): supine lower extremity strengthening/ROM--patient performing glut and quad sets--left lower extremity hip flexion/ext--range of motion to right lower extremity--patient screaming out in pain--patient limited by pain on right, no wanting to move leg or have leg moved. Therapeutic Activity (28887) Treatment Minutes: 15 2 units Skilled Intervention(s): [...] noted Reason for Physical Therapy Consult : ENROLLMENT SERVICES DEAN Relevant Past Medical History: morbid obesity cellulitis [...] on Management;Safety;Self Care;Shopping;Transportati on;Wheelchair Mobility (sit/dangle EOB RENAL CASE MANAGER) Prior Functional Level Comments: sits EOB, Slide [...] for this therapy evaluation/treatment. SIGNATURE: Tye Arnold RENAL CASE MANAGER PATIENT NAME: Salazar Coyle DATE: January 14, 2018 TIME: 11:53 AM Normal [facility] THERAPY NT HNO ID: [id number] Author: Deb Lundberg/Teresa Payne Service: Occupational Therapy Author Type: Occupational Therapist Type: Therapy (PT/OT/Speech/Resp) Filed: 01/14/2018 10:28 AM Note Text: Occupational Therapy Treatment SERVICE DATE: 01/14/2018 SERVICE TIME: 935 to 954 ROOM: [place] [address] Recommended Discharge Disposition: Subacute/SNF Recommended Discharge Disposition [...] and signs-other;Lack of coordination-other Interventions Provided: Self Shelter Management (33338) Self Shelter Management (05998) Treatment Minutes: 19 1 unit Skilled Intervention(s): [...] - Cellulitis Reason for Occupational Therapy Consult: ENROLLMENT SERVICES DEAN, mobilize Relevant Past Medical History: morbid obesity [...] on Management;Safety;Self Care;Shopping;Transportati on;Wheelchair Mobility (sit/dangle EOB RENAL CASE MANAGER) Prior Functional Level Comments: sits EOB, Slide [...] complete details for this therapy evaluation/treatment. SIGNATURE: Irene Hyatt S/OT PATIENT NAME: Salazar Coyle DATE: January 14, 2018 TIME: 10:06 AM Normal [facility] PROGRESSon 01-13-2018 PROGRESS HNO ID: [id number] Author: Susan Greco Service: Hospital Medicine Author [...] # DM2- # PAF hx- SIGNATURE: Susan rGeco DO PATIENT NAME: Salazar Coyle DATE: January 13, 2018 TIME: 8:15 PM PAGER/CONTACT #: [facility] PROGRESSon 01-12-2018 PROGRESS HNO ID: [id number] Author: Yeison Dockery Service: Hospital Medicine Author [...] for wound healing?. Urology recommends jose at Dc? #Hypoxia mild- no complaints of hypoxia suspect [...] pain management folllowing ? Plan SNF at [place]. Await precert ? SIGNATURE: Yeison Dockery MD PATIENT NAME: Salazar Coyle DATE: January 12, 2018 TIME: 12:26 PM PAGER: [facility] CASE MANAGEMon 01-11-2018 CASE MANAGEM HNO ID: [id number] Author: Swathi Mart RN Service: Care Management Author Type: Registered Nurse Type: Care Mgt Progress Note Filed: 01/11/2018 12:18 PM Note Text: CARE MANAGEMENT PROGRESS NOTE SERVICE DATE: 01/11/2018 SERVICE TIME: 12:17 PM LOS: 6 days Progress note Await precert for patient to go to [facility]. Patient will transport via cot- form completed. Cm to continue to follow. SIGNATURE: Swathi Mart RN PATIENT NAME: Salazar Coyle DATE: January 11, 2018 TIME: 12:17 PM PAGER/CONTACT #: [phone] [facility] CONSULT PROGon 01-11-2018 CONSULT PROG HNO ID: [id number] Author: Jessica Hammond) MATHEUS Novak Service: Wound/Ostomy Author Type: Registered Nurse Type: Consult Progress Note Filed: 01/11/2018 2:31 PM Note Text: Wound Care Consult Team Assessment Note: PATIENT NAME: Salazar Coyle Reason for Assessment: Wound care follow up Assessment: Patient seen today by Michael Saxena SET UP AND LAY OUT INSPECTOR and RN, see Wound Expert for detailed [...] breast folds. Electronically Signed By: ANEESH Ruby,RN,CWON [facility] NUTRITIONon 01-11-2018 NUTRITION HNO ID: [id number] Author: Niharika Varma Service: Nutrition Therapy Author [...] ([facility]) Wounds, Multiple Paf (Paroxysmal Atrial Fibrillation) ([facility]) Osteoarthritis Hypertension Hyperlipemia Foot Ulcer ([facility]) Tia (Transient Ischemic Attack) Bmi 60.0-69.9, Adult ([facility]) Stroke ([facility]) Patient Noncompliant With Anticoagulant Medication Chronic Pain Cellulitis Morbid Obesity With Bmi of 70 and Over, Adult ([facility]) Current Diet Order DIET CARBOHYDRATE CONTROLLED Order [...] January 11, 2018 TIME: 2:49 PM PAGER: [phone] Normal [facility] PROGRESSon 01-11-2018 PROGRESS HNO ID: [id number] Author: Yeison Dockery Service: Hospital Medicine Author [...] for wound healing?. Urology recommends jose at Pr? #Hypoxia mild- no complaints of hypoxia suspect [...] pain management folllowing ? Plan SNF at [place]. Await precert ? SIGNATURE: Yeison Dockery MD PATIENT NAME: Salazar Coyle DATE: January 11, 2018 TIME: 1:54 PM PAGER: Marly [facility] PROGRESS HNO ID: [id number] Author: Vidya Strange Service: Pain Management Author Type: Physician Type: Progress Notes Filed: 01/11/2018 10:49 AM Note Text: Salazar Coyle [id number] PAIN MANAGEMENT TEAM PAIN DIAGNOSIS: Bilateral [...] nurse or home health 8. Review of [place] Automated RX Reporting System shows no concerns, with her recent prescription history as follows: 12/24/2017 1 12/24/2017 OXYCODON-ACETAMINOPHEN 7.5-325 45 15 [place] [id number] ANDRE([id number]) 0 33.75 MME Medicare [place] 12/10/2017 1 12/10/2017 GABAPENTIN 600 MG TABLET 120 30 [place] [id number] ANDRE(2891) 0 [place] 12/10/2017 1 12/10/2017 OXYCODONE HCL 5 MG TABLET 60 15 [place] [id number] ANDRE(2891) 0 30.00 MME [place] 11/09/2017 1 10/10/2017 OXYCODONE HCL 5 MG TABLET 120 30 [place] [id number] ANDRE(2891) 0 30.00 MME [place] 10/10/2017 1 10/10/2017 OXYCODONE HCL 5 MG TABLET 120 30 [place] [id number] ANDRE(2891) 0 30.00 MME [place] 09/07/2017 1 08/31/2017 OXYCODONE HCL 5 MG TABLET 120 30 [place] [id number] ANDRE(2891) 0 30.00 MME [place] 08/31/2017 1 08/31/2017 GABAPENTIN 600 MG TABLET 120 30 [place] [id number] ANDRE(2891) 0 [place] 08/15/2017 2 08/05/2017 OXYCODONE HCL 5 MG TABLET 30 7 TH LEH [id number] ABS(6899) 0 32.14 MME [facility] 08/08/2017 1 07/05/2017 OXYCODONE HCL 5 MG TABLET 120 30 AN KOG [id number] ANDRE(2891) 0 30.00 MME [place] 08/06/2017 2 08/05/2017 OXYCODONE HCL 5 MG TABLET 30 7 TH LEH [id number] ABS(6899) 0 32.14 MME [facility] On 12/24/2017 her opiates were essentially [...] day and has a new prescription to sheepskin pickler once she is discharged. This change in dose occurred on the day of admission. MEDICATIONS Current Facility-Administered Medications: cyclobenzaprine 5-10 mg tab(s) (FLEXERIL) 5-10 mg ORAL TID PRN Vidya Layton Scantling 10 mg at 01/10/18 153 insulin regular human injection (short acting) (NovoLIN R,HumuLIN R) SUBCUTANEOUS w MEALS AND HS Reyna (Associate Professor Of Mathematics) ZINA Leigh.DIRECTOR PROFESSIONAL SERVICES 2 Units at 01/10/182153 ceFAZolin iv piggyback 2 g in D5W (iso-osmotic) 100 mL (ANCEF) 2 g INTRAVENOUS q 8 HR Diego Obando Last Rate: 200 mL/hr at 01/11/18 0442 2 g at 01/11/18441 oxyCODONE IR 5 [...] syringe 12.5 g INTRAVENOUS PRN Zachariah (Res) Catalinoja, MD insulin glargine 45 Units pen (long acting) (LANTUS SOLOSTAR, BASAGLAR KWIKPEN) 45 Units SUBCUTANEOUS AT BEDTIME Zachariah Alvarez MD 45 Units at 01/10/182150 acetaminophen 650 mg CUP (TYLENOL) 650 mg ORAL q 4 H PRN Zachariah Alvarez MD 650 mg at 01/09/18 0904 gabapentin 600 mg cap(s) (NEURONTIN) 600 mg ORAL QID Jesus Galindo, DO 600 mg at 01/10/182152 atorvastatin 40 mg tab(s) (LIPITOR) 40 mg ORAL AT BEDTIME Jesus Galindo DO 40 mg at 01/10/182152 losartan 100 mg tab(s) (COZAAR) 100 mg ORAL DAILY Jessu Galindo, DO 100 mg at 01/10/18 1203 metoprolol tartrate (short acting) 12.5 mg tab(s) (LOPRESSOR) 12.5 mg ORAL q 12 H Jesus Galindo, DO 12.5 mg at 01/10/182151 amLODIPine 5 mg tab(s) (NORVASC) 5 mg ORAL DAILY Jesus Galindo, DO 5 mg at 01/10/18 1157 apixaban 5 mg tab(s) (ELIQUIS) 5 mg [...] - Osteoarthritis - PAF (paroxysmal atrial fibrillation) ([facility]) - Rotator cuff tear - Stroke ([facility]) - Type 2 diabetes mellitus with hyperglycemia ([facility]) PAST SURGICAL HISTORY PAST SURGICAL HISTORY Procedure [...] tox screen-negative opiates (concerning since prescribed Percocet RENAL CASE MANAGER), waiting for confirmation test in the event [...] team can assist further Vidya Strange MD [facility] THERAPY NTon 01-11-2018 THERAPY NT HNO ID: [id number] Author: Dorina (Otr/LJulio Levin Service: Occupational Therapy Author Type: Occupational Therapist Type: Therapy (PT/OT/Speech/Resp) Filed: 01/11/2018 1:38 PM Note Text: Occupational Therapy Treatment SERVICE DATE: 01/11/2018 SERVICE TIME: 1050 to 1133 ROOM: [place] [address] Recommended Discharge Disposition: Subacute/SNF Justification For Post [...] and signs-other;Lack of coordination-other Interventions Provided: Self Shelter Management (61109);Therapeutic Exercise (43684) Therapeutic Exercise (31327) Treatment Minutes: 10 1 unit Skilled Intervention(s): Provided BUE AROM/AAROM exercises as tolerated at supine level in bed. Patient completed LUE AROM with cuing, however requires assist/AAROM for R shoulder exercises due to residual deficits from prior CVA. Only tolerates minimal UE activity prior to fatigue. Encouraged increased exercise to increase strength for ADL/ADL mobility. Self Shelter Management (59010) Treatment Minutes: 33 2 units Skilled Intervention(s): [...] sciatica, DJD. Reason for Occupational Therapy Consult: ENROLLMENT SERVICES DEAN, mobilize Relevant Past Medical History: morbid obesity [...] on Management;Safety;Self Care;Shopping;Transportati on;Wheelchair Mobility (sit/dangle EOB RENAL CASE MANAGER) Prior Functional Level Comments: sits EOB, Slide [...] complete details for this therapy evaluation/treatment. SIGNATURE: Dorina Levin OTR/L PATIENT NAME: Salazar Coyle DATE: January 11, 2018 TIME: 12:31 PM Normal [facility] THERAPY NT HNO ID: [id number] Author: Monika (Pt) ROXANA Borja Service: Physical Therapy Author Type: Physical Therapist Type: Therapy (PT/OT/Speech/Resp) Filed: 01/11/2018 11:28 AM Note Text: Physical Therapy Evaluation SERVICE DATE: 01/11/2018 SERVICE TIME: 0945 to 1030 ROOM: [place] [address] Present on Admission: - Cellulitis - Morbid [...] symptoms and signs-other Interventions Provided: Therapeutic Exercise (44963);Therapeutic Activity (91914) Therapeutic Exercise (10995) Treatment Minutes: 5 0 units Skilled Intervention(s): [...] functional mobility and wound healing. Therapeutic Activity (14085) Treatment Minutes: 40 3 units Skilled Intervention(s): [...] CVA. Reason for Physical Therapy Consult : ENROLLMENT SERVICES DEAN Relevant Past Medical History: morbid obesity cellulitis [...] on Management;Safety;Self Care;Shopping;Transportati on;Wheelchair Mobility (sit/dangle EOB RENAL CASE MANAGER) Prior Functional Level Comments: sits EOB, Slide [...] January 11, 2018 TIME: 11:[address] [facility] CASE MANAGEMon 01-10-2018 CASE MANAGEM HNO ID: [id number] Author: Swatih CisnerosRn) MATHEUS Mart Service: Care Management Author [...] 10, 2018 TIME: 4:39 PM PAGER/CONTACT #: [phone] [facility] NURSING PROGon 01-10-2018 NURSING PROG HNO ID: [id number] Author: Shana CisnerosRn) MATHEUS Yang Service: (none) Author Type: Registered Nurse Type: Nursing Progress Note Filed: 01/10/2018 2:47 PM Note Text: Nursing Progress Note Patient Name: Salazar Coyle Patient Location: [place] [address] [address] Daily Note:per urology patient to go home or to ecf with jose This note was completed by: Shana Yang RN [facility] PROGRESSon 01-10-2018 PROGRESS HNO ID: [id number] Author: Vidya Strange Service: Pain Management Author Type: Physician Type: Progress Notes Filed: 01/10/2018 2:25 PM Note Text: Salazar Coyle [id number] 1950 PAIN MANAGEMENT TEAM PAIN DIAGNOSIS: Bilateral [...] nurse or home health 8. Review of [place] Automated RX Reporting System shows no concerns, with her recent prescription history as follows: 12/24/2017 1 12/24/2017 OXYCODON-ACETAMINOPHEN 7.5-325 45 15 [place] [id number] ANDRE(2891) 0 33.75 M[place] 12/10/2017 1 12/10/2017 GABAPENTIN 600 MG TABLET 120 30 [place] [id number] ANDRE(2891) 0 [place] 12/10/2017 1 12/10/2017 OXYCODONE HCL 5 MG TABLET 60 15 [place] [id number] ANDRE(2891) 0 30.00 [place] 11/09/2017 1 10/10/2017 OXYCODONE HCL 5 MG TABLET 120 30 [place] [id number] ANDRE(2891) 0 30.00 [place] 10/10/2017 1 10/10/2017 OXYCODONE HCL 5 MG TABLET 120 30 [place] [id number] ANDRE(2891) 0 30.00 [place] 09/07/2017 1 08/31/2017 OXYCODONE HCL 5 MG TABLET 120 30 [place] [id number] ANDRE(2891) 0 30.00 [place] 08/31/2017 1 08/31/2017 GABAPENTIN 600 MG TABLET 120 30 [place] [id number] ANDRE(2891) 0 [place] 08/15/2017 2 08/05/2017 OXYCODONE HCL 5 MG TABLET 30 7 TH LE [id number] ABS(6899) 0 32.14 MME Private [facility] [place] 08/08/2017 1 07/05/2017 OXYCODONE HCL 5 MG TABLET 120 30 [place] KOG [id number] ANDRE(2891) 0 30.00 [place] 08/06/2017 2 08/05/2017 OXYCODONE HCL 5 MG TABLET 30 7 TH LEH [id number] ABS(6899) 0 32.14 MME [place] [...] day and has a new prescription to sheepskin pickler once she is discharged. This change in dose occurred on the day of admission. MEDICATIONS Current Facility-Administered Medications: cyclobenzaprine 5-10 mg tab(s) (FLEXERIL) 5-10 mg ORAL TID PRN Vidya Strange insulin regular human injection (short acting) (NovoLIN R,HumuLIN R) SUBCUTANEOUS w MEALS AND HS Reyna (Associate Professor Of Mathematics) ZINA Leigh.GUS ceFAZolin iv piggyback 2 g in D5W (iso-osmotic) 100 mL (ANCEF) 2 g INTRAVENOUS q 8 HR Diego Obando Last Rate: 200 mL/hr at 01/10/18 0419 2 g at 01/10/18 0419 oxyCODONE IR 5 mg tab(s) (ROXICODONE) 5 [...] DAILY Jesus Galindo DO 100 mg at 01/09/18904 metoprolol tartrate (short acting) 12.5 mg tab(s) (LOPRESSOR) 12.5 mg ORAL q 12 H Jesus Galindo, DO 12.5 mg at 01/09/182048 amLODIPine 5 mg tab(s) (NORVASC) 5 mg ORAL DAILY Jesus Galindo DO 5 mg at 01/09/18905 apixaban 5 mg tab(s) (ELIQUIS) 5 mg ORAL BID Jesus Galindo DO 5 mg at 01/09/182051 bisacodyl 10 [...] - Hyperlipemia - Hypertension - Morbid obesity ([facility]) - Muscle spasm of back - Osteoarthritis - PAF (paroxysmal atrial fibrillation) ([facility]) - Rotator cuff tear - Stroke ([facility]) - Type 2 diabetes mellitus with hyperglycemia ([facility]) PAST SURGICAL HISTORY PAST SURGICAL HISTORY Procedure [...] tox screen-negative opiates (concerning since prescribed Percocet RENAL CASE MANAGER), waiting for confirmation test in the event [...] with [facility] Vidya Strange MD [facility] PROGRESS HNO ID: [id number] Author: Yeison Dockery Service: Hospital Medicine Author [...] RN? #Type 2 diabetes mellitus with hyperglycemia (HCC) [...] January 10, 2018 TIME: 12:57 PM PAGER: [facility] PROGRESSon 01-09-2018 PROGRESS HNO ID: [id number] Author: Yeison Dockery Service: Hospital Medicine Author [...] January 09, 2018 TIME: 6:35 PM PAGER: [facility] PROGRESS HNO ID: [id number] Author: Diego Obando Service: Infectious Disease Author Type: Physician Type: Progress Notes Filed: 01/09/2018 12:12 PM Note Text: 12:11 PM Afebrile Xray negative for osteo. A/P: Continue ancef while in hospital, then DC with PO duricef x 10 days[address] ID sign off[address] [facility] PROGRESS HNO ID: [id number] Author: Vidya Strange Service: Pain Management Author Type: Physician Type: Progress Notes Filed: 01/09/2018 9:20 AM Note Text: Salazar Coyle [id number] PAIN MANAGEMENT TEAM PAIN DIAGNOSIS: Bilateral [...] nurse or home health 8. Review of [place] Automated RX Reporting System shows no concerns, with her recent prescription history as follows: 12/24/2017 1 12/24/2017 OXYCODON-ACETAMINOPHEN 7.5-325 45 15 [place] [id number] ANDRE(2891) 0 33.75 M[place] 12/10/2017 1 12/10/2017 GABAPENTIN 600 MG TABLET 120 30 [place] [id number] ANDRE(2891) 0 [place] 12/10/2017 1 12/10/2017 OXYCODONE HCL 5 MG TABLET 60 15 [place] [id number] ANDRE(2891) 0 30.00 [place] 11/09/2017 1 10/10/2017 OXYCODONE HCL 5 MG TABLET 120 30 [place] [id number] ANDRE(2891) 0 30.00 [place] 10/10/2017 1 10/10/2017 OXYCODONE HCL 5 MG TABLET 120 30 [place] [id number] ANDRE(2891) 0 30.00 [place] 09/07/2017 1 08/31/2017 OXYCODONE HCL 5 MG TABLET 120 30 [place] [id number] ANDRE(2891) 0 30.00 [place] 08/31/2017 1 08/31/2017 GABAPENTIN 600 MG TABLET 120 30 [place] [id number] ANDRE(2891) 0 [place] 08/15/2017 2 08/05/2017 OXYCODONE HCL 5 MG TABLET 30 7 TH LEH [id number] ABS(6899) 0 32.14 MME [facility] 08/08/2017 1 07/05/2017 OXYCODONE HCL 5 MG TABLET 120 30 AN KOG [id number] ANDRE(2891) 0 30.00 M[place] 08/06/2017 2 08/05/2017 OXYCODONE HCL 5 MG TABLET 30 7 TH LEH [id number] ABS(6899) 0 32.14 MME [facility] [place] On 12/24/2017 her opiates were [...] day and has a new prescription to sheepskin pickler once she is discharged. This change in dose occurred on the day of admission. MEDICATIONS Current Facility-Administered Medications: ceFAZolin iv piggyback 2 g in D5W (iso-osmotic) 100 mL (ANCEF) 2 g INTRAVENOUS q 8 HR Diego Obando Last Rate: 200 mL/hr at 01/09/18522 2 g at 01/09/18522 cyclobenzaprine 10 mg tab(s) (FLEXERIL) 10 mg ORAL TID PRN Yashu (Res) Dhamija 10 mg at 01/08/18 2313 oxyCODONE IR 5 mg tab(s) (ROXICODONE) 5 mg ORAL q 4 H PRN Carlos Roberts Preethi 5 mg at 01/08/182017 albuterol 2.5 mg /3 mL (0.083 %) 2.5 mg (PROVENTIL) 2.5 mg INHALATION q 4 H PRN Luisu (Res) oJlene ipratropium-albuterol 3 mL nebulizer solution (DUONEB) 3 [...] (LIPITOR) 40 mg ORAL AT BEDTIME Jesus Heribertotyron, DO 40 mg at 01/08/182017 losartan 100 mg tab(s) (COZAAR) 100 mg ORAL DAILY Jesus Heribertotyron, DO 100 mg at 01/08/18 09 metoprolol tartrate (short acting) 12.5 mg tab(s) (LOPRESSOR) 12.5 mg ORAL q 12 H Jesus Louistyron, DO 12.5 mg at 01/08/182017 amLODIPine 5 mg tab(s) (NORVASC) 5 mg ORAL DAILY Jesus Louistyron DO 5 mg at 01/08/18923 apixaban 5 mg tab(s) (ELIQUIS) 5 mg ORAL BID Jesus Louistyron, DO 5 mg at 01/08/182017 bisacodyl 10 mg suppository (DULCOLAX) 10 mg RECTAL DAILY PRN Jesus Galindo DO miconazole 2 % 1 application topical powder (LOTRIMIN AF, DESENEX) 1 application TOPICAL BID Julio C Obando 1 application at 01/08/18 2100 [...] tox screen-negative opiates (concerning since prescribed Percocet RENAL CASE MANAGER), waiting for confirmation test in the event [...] with [facility] Vidya Strange MD [facility] CASE MANAGEMon 01-08-2018 CASE MANAGEM HNO ID: [id number] Author: Felecia (Rn) MATHEUS Cope Service: Care Management Author Type: Registered Nurse Type: Care Mgt Progress Note Filed: 01/08/2018 3:24 PM Note Text: CARE MANAGEMENT PROGRESS NOTE SERVICE DATE: 01/08/2018 SERVICE TIME: 3:23 PM LOS: 3 days Met with pt's in [facility]. Would like referral for Kat garcia for rehab. SIGNATURE: Felecia Cope RN PATIENT NAME: Salazar Coyle DATE: January 08, 2018 TIME: 3:23 PM PAGER/CONTACT #: [phone] [facility] PROGRESSon 01-08-2018 PROGRESS HNO ID: [id number] Author: Jesus Galindo DO Service: Hospital Medicine Author Type: Physician Type: Progress Notes Filed: 01/08/2018 6:46 PM Note Text: DEPARTMENT OF HOSPITAL MEDICINE PROGRESS NOTE SERVICE DATE: 01/08/2018 SERVICE TIME: 6:38 PM Hospital Medicine/Primary Attending: Jesus Galindo DO NIGHT AND WEEKEND COVERAGE: After 7pm please page [phone] SUBJECTIVE: Patient seen and examined at bedside. [...] specialty bed ? #PAF (paroxysmal atrial fibrillation) (HCC)-monitor on tele #Hx of recent CVA Stroke (HCC)- cont statin and Eliquis, social work consulted [...] 6:38 PM PAGER/CONTACT #: My Pager [facility] PROGRESS HNO ID: [id number] Author: Diego Obando Service: Infectious Disease Author [...] minutes SIGNATURE: Diego Obando MD, MS, FACP, [facility] PATIENT NAME: Salazar Coyle DATE: January 08, 2018 TIME: 11:35 AM PAGER/CONTACT #: [phone] [facility] PROGRESS HNO ID: [id number] Author: Vidya Strange Service: Pain Management Author Type: Physician Type: Progress Notes Filed: 01/08/2018 10:29 AM Note Text: Salazar Coyle [id number] 1950 PAIN MANAGEMENT TEAM PAIN DIAGNOSIS: Bilateral [...] nurse or home health 8. Review of [place] Automated RX Reporting System shows no concerns, with her recent prescription history as follows: 12/24/2017 1 12/24/2017 OXYCODON-ACETAMINOPHEN 7.5-325 45 15 [place] [id number] ANDRE(2891) 0 33.75 M[place] 12/10/2017 1 12/10/2017 GABAPENTIN 600 MG TABLET 120 30 [place] [id number] ANDRE(2891) 0 [place] 12/10/2017 1 12/10/2017 OXYCODONE HCL 5 MG TABLET 60 15 [place] [id number] ANDRE(2891) 0 30.00 [place] 11/09/2017 1 10/10/2017 OXYCODONE HCL 5 MG TABLET 120 30 [place] [id number] ANDRE(2891) 0 30.00 [place] 10/10/2017 1 10/10/2017 OXYCODONE HCL 5 MG TABLET 120 30 [place] [id number] ANDRE(2891) 0 30.00 [place] 09/07/2017 1 08/31/2017 OXYCODONE HCL 5 MG TABLET 120 30 [place] [id number] ANDRE(2891) 0 30.00 [place] 08/31/2017 1 08/31/2017 GABAPENTIN 600 MG TABLET 120 30 [place] [id number] ANDRE(2891) 0 [place] 08/15/2017 2 08/05/2017 OXYCODONE HCL 5 MG TABLET 30 7 TH LE [id number] ABS(6899) 0 32.14 MME [facility] 08/08/2017 1 07/05/2017 OXYCODONE HCL 5 MG TABLET 120 30 AN KO [id number] ANDRE(2891) 0 30.00 MME [place] 08/06/2017 2 08/05/2017 OXYCODONE HCL 5 MG TABLET 30 7 TH LE [id number] ABS(6899) 0 32.14 MME [facility] On 12/24/2017 her opiates were essentially [...] day and has a new prescription to sheepskin pickler once she is discharged. This change in dose occurred on the day of admission. MEDICATIONS Current Facility-Administered Medications: oxyCODONE IR 5 mg tab(s) (ROXICODONE) 5 mg ORAL q 4 H PRN Carlos Roberts Preethi 5 mg at 01/07/182142 albuterol 2.5 mg /3 mL (0.083 %) 2.5 mg (PROVENTIL) 2.5 mg INHALATION q 4 H PRN Len (Res) Jolene vancomycin 1.5 g in D5W 250 mL (VANCOCIN) 1.5 g INTRAVENOUS q 12 HR Julio C Obando Last Rate: 125 mL/hr at 01/08/18 0210 1.5 g at 01/08/18 0210 ipratropium-albuterol 3 mL nebulizer solution (DUONEB) 3 mL INHALATION q 4 H while awake Ki (Res) Cameronnikottu 3 mL at 01/07/18 192 potassium chloride 80-120 mEq oral liquid 80-120 [...] Zachariah (Res) MD Kim 2 Units at 01/07/18 232 insulin glargine 45 Units pen (long acting) (LANTUS SOLOSTAR, BASAGLAR KWIKPEN) 45 Units SUBCUTANEOUS AT BEDTIME Zachariah (Res) MD Kim 45 Units at 01/07/18 232 acetaminophen 650 mg CUP (TYLENOL) 650 mg ORAL q 4 H PRN Zahcariah (Res) MD Kim gabapentin 600 mg cap(s) (NEURONTIN) 600 mg ORAL QID Jessu Galindo DO 600 mg at 01/07/182105 atorvastatin 40 mg tab(s) (LIPITOR) 40 mg ORAL AT BEDTIME Jesus Galindo DO 40 mg at 01/07/182105 losartan 100 mg tab(s) (COZAAR) 100 mg ORAL DAILY Jesus Galindo DO 100 mg at 01/07/18922 metoprolol tartrate (short acting) 12.5 mg tab(s) (LOPRESSOR) 12.5 mg ORAL q 12 H Jesus Galindo DO 12.5 mg at 01/07/182105 amLODIPine 5 mg tab(s) (NORVASC) 5 mg ORAL DAILY Jesus Galindo DO 5 mg at 01/07/18922 apixaban 5 mg tab(s) (ELIQUIS) 5 mg ORAL BID Jesus Galindo DO 5 mg at 01/07/18 2106 bisacodyl 10 mg suppository (DULCOLAX) 10 mg RECTAL DAILY PRN Jesus Galindo DO miconazole 2 % 1 application topical powder (LOTRIMIN AF, DESENEX) 1 application TOPICAL BID Julio C Obando 1 application at 01/07/18 2100 Prescriptions Prior to Admission: aspirin 81 [...] Ischemic Attack) Bmi 60.0-69.9, Adult (Hcc) Stroke ([facility]) Patient Noncompliant With Anticoagulant Medication Chronic Pain Cellulitis Morbid Obesity With Bmi of 70 and Over, Adult ([facility]) Diet DIET CARBOHYDRATE CONTROLLED LAST BOWEL MOVEMENT [...] tox screen-negative opiates (concerning since prescribed Percocet RENAL CASE MANAGER), waiting for confirmation test in the event [...] with [facility] Vidya Strange MD Normal [facility] THERAPY NTon 01-08-2018 THERAPY NT HNO ID: [id number] Author: Catarino (PtJulio Zapata Service: Physical Therapy Author Type: Physical Therapist Type: Therapy (PT/OT/Speech/Resp) Filed: 01/08/2018 3:43 PM Note Text: Physical Therapy Evaluation SERVICE DATE: 01/08/2018 SERVICE TIME: 1450 to 1513 ROOM: [place] [address] Recommended Discharge Disposition: Subacute/SNF Justification For Post [...] symptoms and signs-other Interventions Provided: Evaluation;Therapeutic Exercise (61583) $ Evaluation-Moderate (53518) Billed Units: 1 unit Therapeutic Exercise (00817) Treatment Minutes: 8 1 unit Skilled Intervention(s): [...] with BMI of 70 and over, adult ([facility]) - Cellulitis PAST MEDICAL HISTORY Diagnosis Date - Back pain - Foot ulcer ([facility]) - Generalized weakness - Hip pain - Hyperlipemia - Hypertension - Morbid obesity ([facility]) - Muscle spasm of back - Osteoarthritis - PAF (paroxysmal atrial fibrillation) ([facility]) - Rotator cuff tear - Stroke ([facility]) - Type 2 diabetes mellitus with hyperglycemia ([facility]) PAST SURGICAL HISTORY Procedure Laterality Date - APPENDECTOMY - BLADDER SURGERY HX - TONSILLECTOMY HX - TUBAL LIGATION HX Reason for Physical Therapy Consult : ENROLLMENT SERVICES DEAN Relevant Past Medical History: morbid obesity cellulitis Patient Report: Pt willing to participate. Home Environment Patient Lives With: Significant Other () Assistance Available: 24 Hour Entry To Home: No Stairs Tub/Shower Type: sponge bathes Equipment Owned: Commode-Raised (hospital bed,electric scooter) Prior Functional Level: Required Assistance Assistance Required With: Transfers;Ambulation;Clean ing;Laundry;Meals;Medicati on Management;Safety;Self Care;Shopping;Transportati on;Wheelchair Mobility (sit/dangle EOB RENAL CASE MANAGER) Prior Functional Level Comments: sits EOB, Slide [...] January 08, 2018 TIME: 3:40 PM [facility] THERAPY NT HNO ID: [id number] Author: Felecia CisnerosOtr/L) Randolph Service: Occupational Therapy Author Type: Occupational Therapist Type: Therapy (PT/OT/Speech/Resp) Filed: 01/08/2018 1:42 PM Note Text: Occupational Therapy Evaluation SERVICE DATE: 01/08/2018 SERVICE TIME: 1140 to 1210 ROOM: [place] [address] Recommended Discharge Disposition: Subacute/SNF Justification For Post [...] and signs-other;Lack of coordination-other Interventions Provided: Evaluation;Self Shelter Management (12770) $ Evaluation-Moderate (87369) Billed Units: 1 unit Self Shelter Management (46204) Treatment Minutes: 12 1 unit Skilled Intervention(s): [...] CODE: OT 6 Clicks Score: 15 (01/08/18 114) Self Care Current Status (G8987): CK (01/08/18 1140) Self Care Goal Status (G8988): CJ (01/08/18 114) Based on clinical assessment and the score [...] Date - Back pain - Foot ulcer ([facility]) - Generalized weakness - Hip pain - Hyperlipemia - Hypertension - Morbid obesity ([facility]) - Muscle spasm of back - Osteoarthritis - PAF (paroxysmal atrial fibrillation) ([facility]) - Rotator cuff tear - Stroke ([facility]) - Type 2 diabetes mellitus with hyperglycemia ([facility]) PAST SURGICAL HISTORY Procedure Laterality Date - APPENDECTOMY - BLADDER SURGERY HX - TONSILLECTOMY HX - TUBAL LIGATION HX Reason for Occupational Therapy Consult: ENROLLMENT SERVICES DEAN, mobilize Relevant Past Medical History: morbid obesity cellulitis Patient Report: Severe pain 12/10 RLE Nursing aware and medications provided Home Environment Patient Lives With: Significant Other () Assistance Available: 24 Hour Entry To Home: No Stairs Tub/Shower Type: sponge bathes Equipment Owned: Commode-Raised (hospital bed,electric scooter) Prior Functional Level: Required Assistance Assistance Required With: Transfers;Ambulation;Clean ing;Laundry;Meals;Medicati on Management;Safety;Self Care;Shopping;Transportati on;Wheelchair Mobility (sit/dangle EOB RENAL CASE MANAGER) Prior Functional Level Comments: sits EOB assist [...] details for this therapy evaluation/treatment. SIGNATURE: EARL Bond/Gómez PATIENT NAME: Salazar Coyle DATE: January 08, 2018 TIME: 1:[address] [facility] ALLIED HEALTHon 01-07-2018 ALLIED HEALTH HNO ID: [id number] Author: Chaplain Last (Chaplain) Service: Spiritual Care Author Type: Glue Line Operator Type: Allied Health Filed: 01/07/2018 3:57 PM Note Text: SPIRITUALCARE Spiritual Care Visit- Brief Note Name: Salazar Coyle Date: January 07, 2018 Notes: F/U visit attempted X2. Pt asleep AND no family present. Prayer; left card. Glue Line Operator Signature: Chaplain Berhane To contact the Spiritual Care Department: Please call [phone] or Page the On-Call Glue Line Operator at pager [phone] Thank you for the opportunity to be of service. This is an electronically created document. IF PRINTED, PLEASE DO NOT REMOVE FROM THE CHART OR MODIFY PRINTED COPY. [facility] CASE MANAGEMon 01-07-2018 CASE MANAGEM HNO ID: [id number] Author: Felecia Hammond) MATHEUS Cope Service: Care Management Author Type: Registered Nurse Type: Care Mgt Progress Note Filed: 01/07/2018 3:26 PM Note Text: CARE MANAGEMENT PROGRESS NOTE SERVICE DATE: 01/07/2018 SERVICE TIME: 3:23 PM LOS: 2 days Spoke with pt's son Bradley- states pt was possibly needed rehab at [facility]. Called pt's to attempt assessment and follow up on son's statement. No answer at home number, unable to leave message on cell phone- "vm has not been set up". SIGNATURE: Felecia Cope RN PATIENT NAME: Salazar Coyle DATE: January 07, 2018 TIME: 3:23 PM PAGER/CONTACT #: [phone] [facility] CASE MANAGEM HNO ID: [id number] Author: Twyla Tam (Sw) Service: Care Management Author Type: Automatic Punch Press Operator Type: Care Mgt Progress Note Filed: 01/07/2018 3:23 PM Note Text: CARE MANAGEMENT PROGRESS NOTE SERVICE DATE: 01/07/2018 SERVICE TIME: 1430 LOS: 2 days Medication assistance QASIM consulted to assist pt with medication assistance. Pt presents as lethargic; social work to follow. SIGNATURE: TY Gan PATIENT NAME: Salazar Coyle DATE: January 07, 2018 TIME: 3:21 PM PAGER/CONTACT #: [facility] CONSULT PROGon 01-07-2018 CONSULT PROG HNO ID: [id number] Author: Milagros Hammond) MATHEUS Galdamez Service: Wound/Ostomy Author Type: Registered Nurse Type: Consult Progress Note Filed: 01/07/2018 12:31 PM Note Text: WOUND CARE NURSE CONSULT NOTE SERVICE DATE: 01/07/2018 SERVICE TIME: 1000 REASON FOR VISIT: Wound and Pressure Injury TIME SPENT (minutes): 45 Documentation from Wound Expert can be found in scanned documents. Patient seen by Connie FERNANDEZ and shiela FRAZIER. Deep Tissue Injury of the right heel. [...] January 07, 2018 TIME: 12:27 PM CONTACT#: [id number] [facility] PLAN OF CAREon 01-07-2018 PLAN OF CARE HNO ID: [id number] Author: Len Fernández Service: Critical Care Author [...] January 07, 2018 TIME: 4:28 PM PAGER: [phone] [facility] PROGRESSon 01-07-2018 PROGRESS HNO ID: [id number] Author: Diego Obando Service: Infectious Disease Author [...] minutes SIGNATURE: Diego Obando MD, MS, FACP, [facility] PATIENT NAME: Salazar Coyle DATE: January 07, 2018 TIME: 11:32 AM PAGER/CONTACT #: [phone] [facility] PROGRESS HNO ID: [id number] Author: Tiffanie Zacarias Service: Critical Care Author [...] January 07, 2018 TIME: 4:31 PM PAGER: [phone] Please link this note to the resident's note completed on January 08, 2018. PATIENT NAME: Salazar Coyle [facility] STAFF PHYSICIAN NOTE OF PERSONAL [...] Yes SIGNATURE: Tiffanie Zacarias MD [facility] PAGER:[phone] DATE of SERVICE: January 07, 2018 TIME of SERVICE: 9:37 AM [facility] PROGRESS HNO ID: [id number] Author: Carlos Oro Service: Pain Management Author Type: Physician Type: Progress Notes Filed: 01/07/2018 8:45 AM Note Text: Salazar Coyle [id number] 1950 PAIN MANAGEMENT TEAM PAIN DIAGNOSIS: Bilateral lower extremity wounds with pain, morbid obesity, diabetic neuropathy, sciatica, DJD Pain Score/Description: c/o b/l tariq pain but overall satisfied with pain control, somewhat confused but aware she is at [facility] and knows her , d/w RN earlier today pt telling RN she thought she was at [facility] INTERVAL HPI: Status post transferred to MICU [...] nurse or home health 8. Review of [place] Automated RX Reporting System shows no concerns, with her recent prescription history as follows: 12/24/2017 1 12/24/2017 OXYCODON-ACETAMINOPHEN 7.5-325 45 15 [place] [id number] ANDRE(2891) 0 33.75 MME [place] 12/10/2017 1 12/10/2017 GABAPENTIN 600 MG TABLET 120 30 [place] [id number] ANDRE(2891) 0 [place] 12/10/2017 1 12/10/2017 OXYCODONE HCL 5 MG TABLET 60 15 [place] [id number] ANDRE(2891) 0 30.00 [place] 11/09/2017 1 10/10/2017 OXYCODONE HCL 5 MG TABLET 120 30 [place] [id number] ANDRE(2891) 0 30.00 [place] 10/10/2017 1 10/10/2017 OXYCODONE HCL 5 MG TABLET 120 30 [place] [id number] ANDRE(2891) 0 30.00 [place] 09/07/2017 1 08/31/2017 OXYCODONE HCL 5 MG TABLET 120 30 [place] [id number] ANDRE(2891) 0 30.00 [place] 08/31/2017 1 08/31/2017 GABAPENTIN 600 MG TABLET 120 30 [place] [id number] ANRDE(2891) 0 [place] 08/15/2017 2 08/05/2017 OXYCODONE HCL 5 MG TABLET 30 7 TH LEH [id number] ABS(6899) 0 32.14 MME Private [place] 08/08/2017 1 07/05/2017 OXYCODONE HCL 5 MG TABLET 120 30 AN KOG [id number] ANDRE(2891) 0 30.00 MME [place] 08/06/2017 2 08/05/2017 OXYCODONE HCL 5 MG TABLET 30 7 TH [facility] [id number] ABS(2385) 0 32.14 MME Private [place] On 12/24/2017 her opiates were essentially increased [...] day and has a new prescription to sheepskin pickler once she is discharged. This change in [...] q 4 H while awake Ki (Res) Beccaottu 3 mL at 01/06/18 1815 potassium chloride [...] mg RECTAL DAILY PRN Jesus Galindo, DO influenza vaccine 180 mcg (Patients 65 years and older) (PF) (FLUZONE HIGH DOSE ) 0.5 mL INTRAMUSCULAR ONCE (IMMUNIZATION) Ehab Alshurbaji miconazole 2 % 1 application topical powder (LOTRIMIN AF, DESENEX) 1 application TOPICAL BID Julio C Obando 1 application at 01/06/18 4497 Prescriptions Prior to Admission: aspirin 81 mg [...] tox screen-negative opiates (concerning since prescribed Percocet RENAL CASE MANAGER), will order a confirmation test in the [...] obesity Follow-up with [facility] AGUSTIN L AMBROZIAK, PHARMACIST 7:37 AM Pt seen and examined independently. Discussed with the Pain Service, and agree with above note as amended in blue Carlos Oro MD [facility] ALLIED HEALTHon 01-06-2018 ALLIED HEALTH HNO ID: [id number] Author: Chaplain Cardenas (Chaplain) Service: Spiritual Care Author Type: Glue Line Operator Type: Allied Health Filed: 01/06/2018 8:03 PM Note Text: SPIRITUALCARE Spiritual Care Visit- Brief Note Name: Salazar Coyle Date: January 06, 2018 Notes:Stroke Team called for patient. No family present. Made Glue Line Operator available to community education coordinator. Glue Line Operator Signature: Chaplain Theresa To contact the Spiritual Care Department: Please call [phone] or Page the On-Call Glue Line Operator at pager [phone] Thank you for the opportunity to be of service. This is an electronically created document. IF PRINTED, PLEASE DO NOT REMOVE FROM THE CHART OR MODIFY PRINTED COPY. [facility] CONSULTon 01-06-2018 CONSULT HNO ID: [id number] Author: Zachariah Alvarez MD Service: Critical Care Author Type: Resident Type: Consults Filed: 01/06/2018 9:15 PM Note Text: -- Attestation signed by Francisco Singh at 01/07/2018 2:32 AM [facility] STAFF PHYSICIAN NOTE OF PERSONAL [...] 2018 Patient Name: Salazar Coyle Patient Location: [id number]-* Admission Date: 01/04/2018 Length of Stay: 1 [...] Present Condition: 01/06/18 1635 01/06/18 1653 01/06/18 1700 01/06/18 1815 BP: 122/62 119/53 Pulse: 77 60 [...] BUN 13 CREAT 0.69 CHEM: Recent Labs 01/04/182199 CA 8.4* HEPATIC: No results for input(s): ALKPHOS, ALT, AST, TBILI, LIPASE in the last 168 hours. URINALYSIS: Recent Labs 01/06/18 1700 01/06/18 0800 PH 7.346* -- SPGR -- 1.009 [...] growth Signed: Zachariah Alvarez MD, PGY-1 Pager: [phone] WBC Phone: [phone] Date: January 06, 2018 Time: 6:39 PM Recommendations are not finalized until co-signed by Staff physician. [facility] CONSULT HNO ID: [id number] Author: Savannah Ricketts Service: Urology Author Type: [...] - Hyperlipemia - Hypertension - Morbid obesity ([facility]) - Muscle spasm of back - Osteoarthritis - PAF (paroxysmal atrial fibrillation) ([facility]) - Rotator cuff tear - Stroke (HCC) - Type 2 diabetes mellitus with hyperglycemia (HCC) PAST SURGICAL HISTORY: PAST SURGICAL HISTORY Procedure [...] (thou/cmm) Date Value 01/06/2018 222 Urinalysis: Specific [place], Ur Date Value Ref Range Status 01/06/2018 [...] and to evaluate wound-healing to eventually dc jose if possible Thank you for allowing me to participate in the care of your patient SIGNATURE: Ally Cavazos MD PATIENT NAME: Salazar Coyle DATE: 01/06/18 TIME: 11:06 AM PAGER: [phone] Attending Note I evaluated the patient and personally participated in the arias components. I agree with the resident's findings and plan as documented and have discussed the case and management of the patient's care with the resident. Signature: Savannah Ricketts DO, MBA Date: 01/06/2018 Time: 11:59 AM Normal [facility] CONSULT HNO ID: [id number] Author: Carlos Oro Service: Pain Management Author Type: Physician Type: Consults Filed: 01/06/2018 7:11 AM Note Text: Salazar Coyle [id number] PAIN MANAGEMENT TEAM PAIN DIAGNOSIS: Bilateral [...] nurse or home health 8. Review of [place] Automated RX Reporting System shows no concerns, with her recent prescription history as follows: 12/24/2017 1 12/24/2017 OXYCODON-ACETAMINOPHEN 7.5-325 45 15 [place] [id number] ANDRE([id number]) 0 33.75 MME [place] 12/10/2017 1 12/10/2017 GABAPENTIN 600 MG TABLET 120 30 [place] [id number] ANDRE(2891) 0 [place] 12/10/2017 1 12/10/2017 OXYCODONE HCL 5 MG TABLET 60 15 [place] [id number] ANDRE(2891) 0 30.00 [place] 11/09/2017 1 10/10/2017 OXYCODONE HCL 5 MG TABLET 120 30 [place] [id number] ANDRE(2891) 0 30.00 [place] 10/10/2017 1 10/10/2017 OXYCODONE HCL 5 MG TABLET 120 30 [place] [id number] ANDRE(2891) 0 30.00 [place] 09/07/2017 1 08/31/2017 OXYCODONE HCL 5 MG TABLET 120 30 [place] [id number] ANDRE(2891) 0 30.00 [place] 08/31/2017 1 08/31/2017 GABAPENTIN 600 MG TABLET 120 30 [place] [id number] ANDRE(2891) 0 [place] 08/15/2017 2 08/05/2017 OXYCODONE HCL 5 MG TABLET 30 7 TH LE [id number] ABS(2199) 0 32.14 MME Private Pay [place] 08/08/2017 1 07/05/2017 OXYCODONE HCL 5 MG TABLET 120 30 AN KOG [id number] ANDRE(2891) 0 30.00 MME [place] 08/06/2017 2 08/05/2017 OXYCODONE HCL 5 MG TABLET 30 7 TH LE [id number] ABS(6899) 0 32.14 MME Private [place] On 12/24/2017 her opiates were essentially increased [...] day and has a new prescription to sheeps[facility] pickler once she is discharged. This change in [...] H Jesus Galindo DO 12.5 mg at 01/05/182039 amLODIPine 5 mg tab(s) (NORVASC) 5 mg ORAL DAILY Jesus Galindo, DO 5 mg at 01/05/18 1100 apixaban 5 mg tab(s) (ELIQUIS) 5 mg ORAL BID Jesus Galindo, DO 5 mg at 01/05/182039 insulin lispro pen (rapid acting) (HumaLOG KWIKPEN) SUBCUTANEOUS w MEALS AND HS Jesus Galindo, DO 3 Units at 01/05/181712 insulin lispro 22 Units pen (rapid acting) (HumaLOG KWIKPEN) 22 Units SUBCUTANEOUS w MEALS Jesus Galindo, DO 22 Units at 01/05/181712 insulin glargine 65 Units pen (long acting) (LANTUS SOLOSTAR, BASAGLAR KWIKPEN) 65 Units SUBCUTANEOUS AT BEDTIME Jesus Galindo, DO 65 Units at 01/05/182038 bisacodyl 10 mg suppository (DULCOLAX) 10 mg RECTAL DAILY PRN Jesus Galindo DO baclofen 20 mg tab(s) (LIORESAL) 20 mg ORAL TID Jesus Galindo DO 20 mg at 01/05/182038 amitriptyline 20 mg tab(s) (ELAVIL) 20 mg ORAL AT BEDTIME Jesus Galindo, DO 20 mg at 01/05/182039 vancomycin 2 g in D5W 500 mL (VANCOCIN) 0.015 g/kg/dose INTRAVENOUS q 12 HR Jesus Galindo DO Last Rate: 250 mL/hr at 01/06/18 0030 2 g at 01/06/1829 influenza vaccine 180 mcg (Patients 65 years and older) (PF) (FLUZONE HIGH DOSE 2018-) 0.5 mL INTRAMUSCULAR ONCE (IMMUNIZATION) ab Nick oxyCODONE-acetaminophen 5-325 mg 1 tablet (PERCOCET) 1 [...] will follow with you Carlos Oro M.D. [facility] NURSING PROGon 01-06-2018 NURSING PROG HNO ID: [id number] Author: Shana (Rn) Trey, RN Service: (none) Author Type: Registered Nurse Type: Nursing Progress Note Filed: 01/06/2018 9:03 PM Note Text: Nursing Progress Note Patient Name: Salazar Coyle Patient [place] [address] [address] Daily Note:spoke with dr. Galindo, notified that ICU was on floor assessing patient at this time, dr. galindo updated the family prior to CT. Will continue to monitor This note was completed by: Shana Yang, [facility] NURSING PROG HNO ID: [id number] Author: Shana (Rn) Trey, RN Service: (none) Author Type: Registered Nurse Type: Nursing Progress Note Filed: 01/06/2018 9:02 PM Note Text: Nursing Progress Note Patient Name: Salazar Coyle Patient Location: [place] [address] [address] Daily Note:patient's bs 66, patient given OJ [...] note was completed by: Shana Yang RN [facility] PROGRESSon 01-06-2018 PROGRESS HNO ID: [id number] Author: Jesus Galindo DO Service: Hospital Medicine [...] the event that resuscitation measures were needed. Normal [facility] PROGRESS HNO ID: [id number] Author: Jesus Galindo DO Service: Hospital Medicine Author Type: Physician Type: Progress Notes Filed: 01/06/2018 8:35 AM Note Text: DEPARTMENT OF HOSPITAL MEDICINE PROGRESS NOTE SERVICE DATE: 01/06/2018 SERVICE TIME: 8:28 AM Hospital Medicine/Primary Attending: Jesus Galindo DO NIGHT AND WEEKEND COVERAGE: After 7pm please page [phone] SUBJECTIVE: Patient seen and examined at bedside. [...] DOSE ) 0.5 mL INTRAMUSCULAR ONCE (IMMUNIZATION) miconazole 2 [...] ? #Type 2 diabetes mellitus with hyperglycemia ([facility]) -cont home insulin reg ? #Hypertension-well controlled at this time -cont home meds ? #Morbid obesity BMI 60.0-69.9, adult ([facility])- order specialty bed ? #PAF (paroxysmal atrial fibrillation) ([facility])-monitor on tele #Hx of recent CVA Stroke ([facility])- cont statin and Eliquis, social work consulted [...] 8:28 AM PAGER/CONTACT #: My Pager Normal [facility] ALLIED HEALTHon 01-05-2018 ALLIED HEALTH HNO ID: [id number] Author: Nneka Rivera (Chaplain), Student Service: Spiritual Care Author Type: Glue Line Operator Type: Allied Health Filed: 01/05/2018 2:13 PM Note Text: SPIRITUALCARE Spiritual Care Visit- Brief Note Name: Salazar Coyle Date: January 05, 2018 Notes: Infectious sores on her feet and legs. Appreciated the visit and prayer for herself, daughter, and granddaughter. Spiritual Care appreciated. Glue Line Operator Signature: Chaplain Izzy To contact the Spiritual Care Department: Please call [phone] or Page the On-Call Glue Line Operator at pager [phone] Thank you for the opportunity to be of service. This is an electronically created document. IF PRINTED, PLEASE DO NOT REMOVE FROM THE CHART OR MODIFY PRINTED COPY. [facility] CONSULTon 01-05-2018 CONSULT HNO ID: [id number] Author: Julio C Obando Service: Infectious Disease Author Type: Physician Type: Consults Filed: 01/05/2018 12:45 PM Note Text: Seen [id number]; [id number] Cont vanco ; when better, use amox 500tid and doxy 100bid at home Julio C Obando MD 01/05/2018 12:[phone] [facility] ED NOTEon 01-05-2018 ED NOTE HNO ID: [id number] Author: Irene (Rn) Rafiq RN Service: Emergency Medicine Author Type: Registered Nurse Type: ED Notes Filed: 01/05/2018 7:07 AM Note Text: Attempted to call twice with no answer from [facility] ED NOTE HNO ID: [id number] Author: Irene (Rn) Rafiq, RN Service: Emergency Medicine Author Type: Registered Nurse Type: ED Notes Filed: 01/05/2018 6:10 AM Note Text: Pt reassessed and revitaled per policy without any change in the initial assessment. [facility] ED NOTE HNO ID: [id number] Author: Irene CisnerosRn) Rafiq, RN Service: Emergency Medicine Author Type: Registered Nurse Type: ED Notes Filed: 01/05/2018 4:34 AM Note Text: Pt reassessed and revitaled per policy without any change in the initial assessment. [facility] HISTORY PHYSICALon 8 HISTORY PHYSICAL HNO ID: [id number] Author: Jesus Galindo DO Service: Hospital Medicine Author Type: Physician Type: HANDP Filed: 01/05/2018 8:58 AM Note Text: DEPARTMENT OF HOSPITAL MEDICINE HISTORY AND PHYSICAL EXAM SERVICE DATE: 01/05/2018 SERVICE TIME: 8:23 AM Primary Care Physician: No primary care provider on file. NIGHT AND WEEKEND COVERAGE: From 7am - 7pm, please call sound After 7pm, please call cross cover pager #[phone] Subjective CHIEF COMPLAINT: Leg wounds HPI: This [...] Range: 1.18 - 3.74 thou/cmm 1.85 Abs. Ramsey Latest Ref Range: 0.27 - 0.70 thou/cmm [...] order specialty bed #PAF (paroxysmal atrial fibrillation) ([facility])-monitor on tele #Hx of recent CVA Stroke ([facility])- cont statin and Eliquis #Patient noncompliant with anticoagulant medication in the past #Osteoarthritis #Chronic pain-consult pain management, cont home meds VTE Prophylaxis: VTE prophylaxis appropriate Disposition: TBD Plan of care discussed with: Patient SIGNATURE: Jesus Galindo DO PATIENT NAME: Salazar Coyle DATE: January 05, 2018 TIME: 8:23 AM PAGER/CONTACT #: kiera go [phone] Normal [facility] Vital Signs Date Time Vital Sign Value Performing Clinician Facility 02-04-2025 08:03-0500 Body temperature 97 [degF] Mario Portillo MD Work Phone: [facility] 02-04-2025 08:03-0500 Diastolic blood pressure 77 mm[Hg] Mario Portillo MD Work Phone: [facility] 02-04-2025 08:03-0500 Heart rate 91 /min Mario Portillo MD Work Phone: [facility] 02-04-2025 08:03-0500 Respiratory rate 16 /min Mario Portillo MD Work Phone: [facility] 02-04-2025 08:03-0500 SaO2% (BldA) [Mass fraction] 96 % Mario Portillo MD Work Phone: [facility] 02-04-2025 08:03-0500 Systolic blood pressure 141 mm[Hg] Mario Portillo MD Work Phone: [facility] 01-30-2025 12:22-0400 Body height 165.1 cm Mario Portillo MD Work Phone: [facility] 10-18-2024 08:24-0400 Diastolic blood pressure 85 mm[Hg] Sravan Mercedes MD Work Phone: [facility] 10-18-2024 08:24-0400 Heart rate 70 /min Sravan Mercedes MD Work Phone: [facility] 10-18-2024 08:24-0400 SaO2% (BldA) [Mass fraction] 92 % Sravan Mercedes MD Work Phone: [facility] 10-18-2024 08:24-0400 Systolic blood pressure 115 mm[Hg] Sravan Mercedes MD Work Phone: [facility] 10-18-2024 08:00-0400 Body temperature 96.4 [degF] Sravan Mercedes MD Work Phone: [facility] 10-18-2024 08:00-0400 Respiratory rate 20 /min Sravan Mercedes MD Work Phone: [facility] 10-18-2024 05:00-0400 Body mass index (BMI) [Ratio] 59.74 kg/m2 Sravan Mercedes MD Work Phone: [facility] 10-18-2024 05:00-0400 Body weight 162.84 kg Sravan Mercedes MD Work Phone: [facility] 10-10-2024 10:09-0400 Body height 165.1 cm Sravan Mercedes MD Work Phone: [facility] 01-03-2024 14:00-0400 Diastolic blood pressure 70 mm[Hg] Bashir Vásquez MD Work Phone: [facility] 01-03-2024 14:00-0400 Heart rate 70 /min Bashir Vásquez MD Work Phone: [facility] 01-03-2024 14:00-0400 Respiratory rate 14 /min Bashir Vásquez MD Work Phone: [facility] 01-03-2024 14:00-0400 SaO2% (BldA) [Mass fraction] 97 % Bashir Vásquez MD Work Phone: [facility] 01-03-2024 14:00-0400 Systolic blood pressure 173 mm[Hg] Bashir Vásquez MD Work Phone: [facility] 01-03-2024 13:00-0400 Body temperature 97.2 [degF] Bashir Vásquez MD Work Phone: [facility] 11-29-2023 17:25-0400 Body temperature 97.3 [degF] Juan Cervantes MD Work Phone: [facility] 11-29-2023 17:25-0400 Diastolic blood pressure 48 mm[Hg] Juan Cervantes MD Work Phone: [facility] 11-29-2023 17:25-0400 Heart rate 59 /min Juan Cervantes MD Work Phone: [facility] 11-29-2023 17:25-0400 Respiratory rate 16 /min Juan Cervantes MD Work Phone: [facility] 11-29-2023 17:25-0400 SaO2% (BldA) [Mass fraction] 92 % Juan Cervantes MD Work Phone: [facility] 11-29-2023 17:25-0400 Systolic blood pressure 153 mm[Hg] Juan Cervantes MD Work Phone: [facility] 11-26-2023 13:51-0400 Body height 165.1 cm Juan Cervantes MD Work Phone: [facility] 11-24-2023 02:44-0400 Body mass index (BMI) [Ratio] 57.01 kg/m2 Juan Cervantes MD Work Phone: [facility] 11-24-2023 02:44-0400 Body weight 155.4 kg Juan Cervantes MD Work Phone: [facility] 09-27-2023 16:40-0400 Diastolic blood pressure 68 mm[Hg] Bashir Vásquez MD Work Phone: [facility] 09-27-2023 16:40-0400 Heart rate 59 /min Bashir Vásquez MD Work Phone: [facility] 09-27-2023 16:40-0400 Respiratory rate 11 /min Bashir Vásquez MD Work Phone: [facility] 09-27-2023 16:40-0400 SaO2% (BldA) [Mass fraction] 96 % Bashir Vásquez MD Work Phone: [facility] 09-27-2023 16:40-0400 Systolic blood pressure 127 mm[Hg] Bashir Vásquez MD Work Phone: [facility] 09-27-2023 11:57-0400 Body temperature 97.11 [degF] Bashir Vásquez MD Work Phone: [facility] 09-27-2023 10:16-0400 Body height 165.1 cm Bashir Vásquez MD Work Phone: [facility] 09-27-2023 10:16-0400 Body mass index (BMI) [Ratio] 58.24 kg/m2 Bashir Vásquez MD Work Phone: [facility] 09-27-2023 10:16-0400 Body weight 158.76 kg Bashir Vásquez MD Work Phone: [facility] 08-09-2023 12:00-0400 Body temperature 98.4 [degF] Cesario Lemon MD Work Phone: [facility] 08-09-2023 12:00-0400 Heart rate 64 /min Cesario Lemon MD Work Phone: [facility] 08-09-2023 12:00-0400 Respiratory rate 14 /min Cesario Lemon MD Work Phone: [facility] 08-09-2023 12:00-0400 SaO2% (BldA) [Mass fraction] 100 % Cesario Lemon MD Work Phone: [facility] 08-09-2023 08:04-0400 Diastolic blood pressure 110 mm[Hg] Cesario Lemon MD Work Phone: [facility] 08-09-2023 08:04-0400 Systolic blood pressure 127 mm[Hg] Cesario Lemon MD Work Phone: [facility] 08-06-2023 07:33-0400 Body height 165.1 cm Cesario Lemon MD Work Phone: [facility] 08-02-2023 04:27-0400 SaO2% (BldA) [Mass fraction] 96.8 % Cesario Lemon MD Work Phone: [facility] 07-31-2023 09:05-0400 Body mass index (BMI) [Ratio] 58.24 kg/m2 Cesario Lemon MD Work Phone: [facility] 07-31-2023 09:05-0400 Body weight 158.76 kg Cesario Lemon MD Work Phone: [facility] 01-11-2023 07:50-0400 Body temperature 96.8 [degF] Fahad Nesheim DO Work Phone: [facility] 01-11-2023 07:50-0400 Diastolic blood pressure 46 mm[Hg] Fahad Nesheim DO Work Phone: [facility] 01-11-2023 07:50-0400 Heart rate 46 /min Fahad Nesheim DO Work Phone: [facility] 01-11-2023 07:50-0400 Respiratory rate 22 /min Fahad Nesheim DO Work Phone: [facility] 01-11-2023 07:50-0400 SaO2% (BldA) [Mass fraction] 97 % Fahad Nesheim DO Work Phone: [facility] 01-11-2023 07:50-0400 Systolic blood pressure 119 mm[Hg] Fahad Nesheim DO Work Phone: [facility] 01-08-2023 03:25-0400 Body mass index (BMI) [Ratio] 51.74 kg/m2 Fahad Nesheim DO Work Phone: [facility] 01-08-2023 03:25-0400 Body weight 145.33 kg Fahad Champion DO Work Phone: [facility] 08-07-2022 08:38-0400 Body temperature 96.3 [degF] Carlos Ayala DO Work Phone: [facility] 08-07-2022 08:38-0400 Diastolic blood pressure 41 mm[Hg] Carlos Ayala DO Work Phone: [facility] 08-07-2022 08:38-0400 Heart rate 70 /min Carlos Ayala DO Work Phone: [facility] 08-07-2022 08:38-0400 Respiratory rate 18 /min Carlos Ayala DO Work Phone: [facility] 08-07-2022 08:38-0400 SaO2% (BldA) [Mass fraction] 99 % Carlos Ayala DO Work Phone: [facility] 08-07-2022 08:38-0400 Systolic blood pressure 111 mm[Hg] Carlos Ayala DO Work Phone: [facility] 08-03-2022 08:48-0400 Body height 167.6 cm Carlos Ayala DO Work Phone: [facility] 08-02-2022 15:28-0400 Body mass index (BMI) [Ratio] 55.39 kg/m2 Carlos Ayala DO Work Phone: [facility] 08-02-2022 15:28-0400 Body weight 155.58 kg Carlos Ayala DO Work Phone: [facility] 07-31-2022 19:00-0400 Body mass index (BMI) [Ratio] 55.51 kg/m2 Annette Knutsons DO Work Phone: [facility] 07-31-2022 19:00-0400 Body weight 156 kg Annette Darci DO Work Phone: [facility] 07-11-2022 21:00-0400 Body mass index (BMI) [Ratio] 55.52 kg/m2 Annette Darci DO Work Phone: [facility] 07-11-2022 21:00-0400 Body weight 156.04 kg Annette Bejarano DO Work Phone: [facility] 06-16-2022 03:57-0400 Body temperature 97.5 [degF] Hood Adrienkola DO Work Phone: [facility] 06-16-2022 03:57-0400 Heart rate 66 /min Hood Adrienkola DO Work Phone: [facility] 06-16-2022 03:57-0400 Respiratory rate 17 /min Hood Adrienkola DO Work Phone: [facility] 06-16-2022 03:57-0400 SaO2% (BldA) [Mass fraction] 91 % Hood Melyla DO Work Phone: [facility] 06-15-2022 19:59-0400 Diastolic blood pressure 74 mm[Hg] Hood Adrienkola DO Work Phone: [facility] 06-15-2022 19:59-0400 Systolic blood pressure 140 mm[Hg] Hood Adrienkola DO Work Phone: [facility] 06-15-2022 13:28-0400 Body height 167.6 cm Hood Melyla DO Work Phone: [facility] 06-15-2022 09:00-0400 Body mass index (BMI) [Ratio] 55.62 kg/m2 Hood Adrienkola DO Work Phone: [facility] 06-15-2022 09:00-0400 Body weight 156.3 kg Hood Adrienkola DO Work Phone: [facility] 04-15-2021 08:12-0500 Body temperature 97.39 [degF] Kamran Cassidy MD Work Phone: [facility] 04-15-2021 08:12-0500 Diastolic blood pressure 59 mm[Hg] Kamran Cassidy MD Work Phone: [facility] 04-15-2021 08:12-0500 Heart rate 74 /min Kamran Cassidy MD Work Phone: [facility] 04-15-2021 08:12-0500 Respiratory rate 16 /min Kamran Cassidy MD Work Phone: [facility] 04-15-2021 08:12-0500 SaO2% (BldA) [Mass fraction] 95 % Kamran Cassidy MD Work Phone: [facility] 04-15-2021 08:12-0500 Systolic blood pressure 128 mm[Hg] Kamran Cassidy MD Work Phone: [facility] 04-09-2021 06:50-0500 Body mass index (BMI) [Ratio] 71.2 kg/m2 Kamran Cassidy MD Work Phone: [facility] 04-09-2021 06:50-0500 Body weight 176.59 kg Kamran Cassidy MD Work Phone: [facility] 04-08-2021 22:58-0500 Body weight 178.7184 kg [facility] Comment on above: Performed By: #### [id number], CC24 ####[facility] [id number] [place] [address] 03-18-2021 17:49-0500 Body height 157.5 cm Karman Cassidy MD Work Phone: [facility] 02-10-2021 15:30-0500 Body temperature 99.14 [degF] Diego Elmore Other Phone: [facility] Other Phone (unformatted): [phone] 02-10-2021 15:30-0500 Diastolic blood pressure 65 mm[Hg] Diego Kylening Other Phone: [facility] Other Phone (unformatted): [phone] 02-10-2021 15:30-0500 Heart rate 73 /min Diego Elmore Other Phone: [facility] Other Phone (unformatted): [phone] 02-10-2021 15:30-0500 SaO2% (BldA) [Mass fraction] 95 % Diego Gunning Other Phone: [facility] Other Phone (unformatted): [phone] 02-10-2021 15:30-0500 Systolic blood pressure 148 mm[Hg] Diego Gunning Other Phone: [facility] Other Phone (unformatted): [phone] 02-10-2021 07:06-0500 Respiratory rate 18 /min Diego Gunning Other Phone: [facility] Other Phone (unformatted): [phone] 02-06-2021 11:18-0500 Body temperature 98.42 [degF] Diego Gunning Other Phone: [facility] 02-06-2021 11:18-0500 Diastolic blood pressure 74 mm[Hg] Diego Gunning Other Phone: [facility] 02-06-2021 11:18-0500 Heart rate 84 /min Diego Gunning Other Phone: [facility] 02-06-2021 11:18-0500 Respiratory rate 18 /min Diego Gunning Other Phone: [facility] 02-06-2021 11:18-0500 SaO2% (BldA) [Mass fraction] 92 % Diego Gunning Other Phone: [facility] 02-06-2021 11:18-0500 Systolic blood pressure 150 mm[Hg] Diego Gunning Other Phone: [facility] 08-06-2019 07:19-0400 Body temperature 37.0 {degrees_C} Patricia King [facility] Work Phone: Comment on above: NOTE: PATIENT RESULTS ARE NOT CORRECTED FOR TEMPERATURE. Order[place]: [place] [id number] 08-06-2019 00:17-0400 Body temperature 37.0 {degrees_C} Patricia King [facility] Work Phone: Comment on above: NOTE: PATIENT RESULTS ARE NOT CORRECTED FOR TEMPERATURE. [place]: [place] [id number] 07-02-2018 [id number] Body temperature 37.0 [facility] Comment on above: Performed By: #### CBC1 #### [facility] [address] [place], [place] [address] Encounters Encounter Date Encounter Type Care Provider Facility Start: 02-06-2025 ambulatory Jeffry Matthew LEON Facil ity:[facility] Start: 01-29-2025 End: 02-04-2025 Evaluation and management of inpatient Mario Portillo MD Work Phone: [facility] Comment on above: Lymphedema of both l ower extremities (Primary Dx); Encephalopathy; Urinary tract infection without hematuria, site unspecified; Cellulitis of right lower limb Start: 11-24-2024 ambulatory Jeffry Matthew LEON Facil ity:[facility] Start: 10-09-2024 End: 10-18-2024 Evaluation and management of inpatient Sravan Mercedes MD Work Phone: [facility] Start: 02-25-2024 End: 02-25-2024 Office outpatient visit 15 minutes Bashir Vásquez MD Work Phone: [facility] Comment on above: Renal calculus, left (Primary Dx); Chronic indwelling Jose catheter Start: 02-25-2024 End: 02-25[facility]20[facility] Start: 01-03-2024 End: 01-03-2024 Subsequent hospital visit by physician Bashir Vásquez MD Work Phone: [facility] Comment on above: Left ureteral calcul us (Primary Dx) Start: 01-02-2024 End: 01-04-2024 Telephone encounter Bashir Vásquez MD Work Phone: [facility] Comment on above: Other (Procedure) Start: 11-25-2023 End: 11-28-2023 Telephone encounter Bashir Vásquez MD Work Phone: [facility] Comment on above: Post-op Follow-up; H ospital Follow-up Start: 11-22-2023 End: 11-29-2023 Evaluation and management of inpatient Juan Cervantes MD Work Phone: [facility] Respiratory Unit 7W Start: 09-27-2023 End: 10-04-2023 Telephone encounter Odette AshtonStoreeArenas MARKETING ADMINISTRATIVE ASSISTANT [employer] Comment on above: Care Coordination Ou treach; Transportation Issues Other; Cancelled Leonidas ointment Start: 09-27-2023 End: 09-27-2023 Subsequent hospital visit by physician Bashir Vásquez MD Work Phone: 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, initial encounter ([facility]) (Primary Dx); Chronic kidney disease, unspecified CKD stage; Other chronic pain Start: 07-31-2022 ambulatory Annette longoria DO Work Phone: [facility] Start: 07-31-2022 Telephone encounter Annette Bejarano DO Work Phone: [facility] Comment on above: Surgery Scheduling ( Confirm transportation ) Start: 07-18-2022 Telephone encounter Paige PENDLETON [facility] Infectious Disease Start: 07-11-2022 ambulatory Annette Melissa longoria DO Work Phone: [facility] Start: 06-12-2022 Telephone encounter Annette Bejarano DO Work Phone: [facility] Comment on above: Surgery Scheduling Start: 06-10-2022 ambulatory Particia kulkarni CANOE INSPECTOR FINAL - SET UP AND LAY OUT INSPECTOR Work Phone: [facility] Start: 06-09-2022 End: 06-16-2022 Evaluation and management of inpatient Hood Wood DO Work Phone: [facility] Start: 03-08-2021 End: 04-15-2021 Evaluation and management of inpatient Kamran Cassidy MD Work Phone: [facility] [place] Start: 02-06-2021 End: 02-10-2021 Evaluation and management of inpatient Cliff Anaya Lena 6 Medical 603 01 Other Phone (unformatted): [phone] Start: 02-02-2021 End: 02-06-2021 Evaluation and management of inpatient Km Morton Michael [facility] 3 Med Surg [place] [id number] 01 Procedures Date Procedure Procedure Detail Performing [...] 02-02-2025 Glucose quantitative blood xcpt reagent strip Gowdin Goetz MD Work Phone: Start: 02-01-2025 Glucose [...] DO Work Phone: Start: 10-17-2024 OXYGEN THERAPY Alicolin Bruno DO Work Phone: Start: 10-17-2024 Glucose quantitative blood xcpt reagent strip Paige Rivera DO Work Phone: Start: 10-17-2024 Comprehensive metabolic panel Cristino Bruno DO Work Phone: Start: 10-16-2024 Glucose quantitative blood xcpt reagent strip Paige Rivera DO Work Phone: Start: 10-16-2024 Glucose quantitative blood xcpt reagent strip Paige Rivera DO Work Phone: Start: 10-16-2024 Glucose quantitative blood xcpt reagent strip Paige Rivera DO Work Phone: Start: 10-16-2024 Glucose quantitative blood xcpt reagent strip Paige Rivera DO Work Phone: Start: 10-16-2024 OXYGEN THERAPY Cristino Bruno DO Work Phone: Start: 10-16-2024 Comprehensive metabolic panel Cristino Bruno DO Work Phone: Start: 10-16-2024 Inf agent det nucleic acid clostridium amp probe Apolinar Hilda COSBY Work Phone: Start: 10-15-2024 OXYGEN THERAPY Cristino [...] Paige Rivera DO Work Phone: Start: 10-15-2024 Comprehensive metabolic panel Cristino Bruno DO Work Phone: Start: 10-14-2024 OXYGEN THERAPY Cristino Bruno DO Work Phone: Start: 10-14-2024 Glucose quantitative [...] MD Work Phone: Start: 10-13-2024 OXYGEN THERAPY Alicolin Bruno DO Work Phone: Start: 10-13-2024 Comprehensive [...] Work Phone: Start: 10-12-2024 Comprehensive metabolic panel Alierikar Guiiuk DO Work Phone: Start: 10-11-2024 Glucose quantitative blood xcpt reagent strip Apolinar Lu MD Work Phone: Start: 10-11-2024 OXYGEN THERAPY Alierikar Guiiuk DO Work Phone: Start: 10-11-2024 Glucose quantitative blood xcpt reagent strip Apolinar Lu MD Work Phone: Start: 10-11-2024 Glucose quantitative blood xcpt reagent strip Alierikar Guiiuk DO Work Phone: Start: 10-11-2024 Glucose quantitative blood xcpt reagent strip Alierikar Guiiuk DO Work Phone: Start: 10-11-2024 OXYGEN THERAPY Alierikar Guiiuk DO Work Phone: Start: 10-11-2024 Comprehensive metabolic panel Alierikar Guiiuk DO Work Phone: Start: 10-10-2024 Glucose quantitative blood xcpt reagent strip Alierikar Ramaniuk DO Work Phone: Start: 10-10-2024 OXYGEN THERAPY Aliaksandr Ramaniuk DO Work Phone: Start: 10-10-2024 Glucose quantitative blood xcpt reagent strip Alierikar Ramaniuk DO Work Phone: Start: 10-10-2024 Assay of lactate Alimannyandr Ramaniuk DO Work Phone: Start: 10-10-2024 Assay of lactate Alimannyandr Guiiuk DO Work Phone: Start: 10-10-2024 OXYGEN THERAPY Alimannyandr Guiiuk DO Work Phone: Start: 10-10-2024 Glucose quantitative blood xcpt reagent strip Cristino Bruno DO Work Phone: Start: 10-10-2024 Assay of lactate Cristino Bruno DO Work Phone: Start: 10-10-2024 Culture bacterial quanttative colony count urine Emelina Taoono PA-C Work Phone: Start: 10-10-2024 End: 10-10-2024 Comprehensive metabolic panel Cristino Bruno DO Work Phone: Start: 10-10-2024 Drug screen quantitative vancomycin Cristino Bruno DO Work Phone: Start: 10-10-2024 Assay of lactate Cristino Messeri DO Work Phone: Start: 10-09-2024 HC CUL TYP ID BLD PTHGN 6+ TRGT Emelina Curtis Lenora PA-C Work Phone: Start: 10-09-2024 End: 10-09-2024 Assay of troponin quantitative Emelina Curtis Lenora PA-C Work Phone: Start: 10-09-2024 End: 10-09-2024 Bacteria identified in Blood by Culture Emelina Taoono PA-C Work Phone: Start: 10-09-2024 Radiologic exam chest single view Giuliana Hankins APRN - DIRECTOR PROFESSIONAL SERVICES Work Phone: Start: 10-09-2024 Insj non-tunneled central venous cath age 3 yr/> Giuliana Hankins CANOE INSPECTOR FINAL - DIRECTOR PROFESSIONAL SERVICES Work Phone: Start: 10-09-2024 Us vasc access sits vsl patency ndl entry Giuliana Hankins CANOE INSPECTOR FINAL - DIRECTOR PROFESSIONAL SERVICES Work Phone: Start: 10-09-2024 Assay of troponin quantitative Emelina Curtis Lenora PA-C Work Phone: Start: 10-09-2024 OXYGEN THERAPY Cristino Messeriuk DO Work Phone: Start: 10-09-2024 Ct thorax w/o contrast material Cristino Messeriuk DO Work Phone: Start: 10-09-2024 Ct lower extremity w/o contrast material Cristino Messeriuk DO Work Phone: Start: 10-09-2024 Ct head/brain w/o contrast material Emelina J Lenora PA-C Work Phone: Start: 10-09-2024 Radiologic exam chest single view Emelina Curtis Lenora PA-C Work Phone: Start: 10-09-2024 Blood gases any combination ph pco2 po2 co2 hco3 Emelina Curtis Lenora PA-C Work Phone: Start: 10-09-2024 End: 10-09-2024 Comprehensive metabolic panel Emelina Kirsten Lenora PA-C Work Phone: Start: 10-09-2024 OXYGEN THERAPY Cristino Messeriuk DO Work Phone: Start: 01-03-2024 [place] GUIDANCE [...] wbc Faiza Updyke PA-C Work Phone: Start: 11-29-2023 Glucose quantitative blood xcpt reagent strip Raphael Ilodi DO Work Phone: Start: 11-29-2023 Basic metabolic panel calcium total Mari Garg CANOE INSPECTOR FINAL - DIRECTOR PROFESSIONAL SERVICES Work Phone: Start: 11-28-2023 Glucose quantitative blood xcpt reagent strip Mari C Rizzardi CANOE INSPECTOR FINAL - DIRECTOR PROFESSIONAL SERVICES Work Phone: Start: 11-28-2023 Glucose quantitative blood xcpt reagent strip Mari C Rizzardi CANOE INSPECTOR FINAL - DIRECTOR PROFESSIONAL SERVICES Work Phone: Start: 11-28-2023 Radiologic exam chest single view Tina Mclean MD Work Phone: Start: 11-28-2023 Glucose quantitative blood xcpt reagent strip Mari C Rizzardi CANOE INSPECTOR FINAL - DIRECTOR PROFESSIONAL SERVICES Work Phone: Start: 11-28-2023 Insertion picc w/rs&i 3 yr/> Tina hensley MD Work Phone: Start: 11-28-2023 Glucose quantitative blood xcpt reagent strip Mari C Rizzardi CANOE INSPECTOR FINAL - DIRECTOR PROFESSIONAL SERVICES Work Phone: Start: 11-28-2023 Basic metabolic panel calcium total Mari C Rizzardi CANOE INSPECTOR FINAL - DIRECTOR PROFESSIONAL SERVICES Work Phone: Start: 11-28-2023 Glucose quantitative blood xcpt reagent strip Mari C Rizzardi CANOE INSPECTOR FINAL - DIRECTOR PROFESSIONAL SERVICES Work Phone: Start: 11-27-2023 Glucose quantitative blood xcpt reagent strip Mari C Rizzardi CANOE INSPECTOR FINAL - DIRECTOR PROFESSIONAL SERVICES Work Phone: Start: 11-27-2023 Glucose quantitative blood xcpt reagent strip Mari C Rizzardi CANOE INSPECTOR FINAL - DIRECTOR PROFESSIONAL SERVICES Work Phone: Start: 11-27-2023 Glucose quantitative blood xcpt reagent strip Mari C Rizzardi CANOE INSPECTOR FINAL - DIRECTOR PROFESSIONAL SERVICES Work Phone: Start: 11-27-2023 Glucose quantitative blood xcpt reagent strip Mari C Rizzardi CANOE INSPECTOR FINAL - DIRECTOR PROFESSIONAL SERVICES Work Phone: Start: 11-27-2023 Blood count complete auto&auto difrntl wbc Faiza Updyke PA-C Work Phone: Start: 11-27-2023 Basic metabolic panel calcium total Faiza Updyke PA-C Work Phone: Start: 11-26-2023 Glucose quantitative blood xcpt reagent strip Nilo Ivan MD Work Phone: Start: 11-26-2023 End: 11-26-2023 Basic metabolic panel calcium total Faiza Claudia WHITLOCK Work Phone: Start: 11-26-2023 Drug screen quantitative [...] strip Jeffry Sal MD Work Phone: Start: 2 End: 11-24-2023 Assay of lactate Jeffry Sal [...] Start: 11-23-2023 Assay of troponin quantitative Torres Aguilrea MD Work Phone: Start: 11-23-2023 Blood gases [...] Work Phone: Start: 11-22-2023 Comprehensive metabolic panel Torres durand MD Work Phone: Start: 11-22-2023 HC [...] 08-09-2023 Glucose quantitative blood xcpt reagent strip Paieg Vogt DO Work Phone: Start: 08-09-2023 Glucose quantitative blood xcpt reagent strip Paige Irvingt DO Work Phone: Start: 08-09-2023 Basic metabolic panel calcium total Maya Vijay-Irene DO Work Phone: Start: 08-09-2023 Manual Differential panel - Blood Maya Vijay-Irene DO Work Phone: Start: 08-08-2023 Glucose quantitative blood xcpt reagent strip Paige Rivera DO Work Phone: Start: 08-08-2023 Glucose quantitative blood xcpt reagent strip Paige Rivera DO Work Phone: Start: 08-08-2023 Glucose quantitative blood xcpt reagent strip Paige Rivera DO Work Phone: Start: 08-08-2023 Glucose quantitative blood xcpt reagent strip Paige Rivera DO Work Phone: Start: 08-08-2023 Basic metabolic panel calcium total Maya Vijay-Irene DO Work Phone: Start: 08-07-2023 Glucose quantitative [...] 08-07-2023 Basic metabolic panel calcium total Maya Vijay-Irene DO Work Phone: Start: 08-07-2023 Manual Differential panel - Blood Maya Vijay-Irene DO Work Phone: Start: 08-06-2023 End: 08-06-2023 Thromboplastin time partial plasma/whole blood Reynold Garner MD Work Phone: Start: 08-06-2023 Basic metabolic panel calcium total Reynold Garner MD Work Phone: Start: 08-06-2023 IR CVC PICC PLACEMENT Reynold Garner MD Work Phone: Start: 08-06-2023 Thromboplastin time partial plasma/whole blood Reyna George-Amy CANOE INSPECTOR FINAL - DIRECTOR PROFESSIONAL SERVICES Work Phone: Start: 08-06-2023 End: 08-06-2023 Blood count complete automated Reyna George-Amy CANOE INSPECTOR FINAL - DIRECTOR PROFESSIONAL SERVICES Work Phone: Start: 08-06-2023 Glucose quantitative blood [...] 08-05-2023 Thromboplastin time partial plasma/whole blood Reyna George-Amy CANOE INSPECTOR FINAL - DIRECTOR PROFESSIONAL SERVICES Work Phone: Start: 08-05-2023 Basic metabolic panel calcium total Maya Vijay-Irene DO Work Phone: Start: 08-05-2023 End: 08-05-2023 Thromboplastin time partial plasma/whole blood Reyna George-Amy CANOE INSPECTOR FINAL - DIRECTOR PROFESSIONAL SERVICES Work Phone: Start: 08-05-2023 EXTUBATION Maya Vijay-Irene DO Work Phone: Start: 08-05-2023 Radiologic exam chest single view Maya Smythgrass DO Work Phone: Start: 08-05-2023 Glucose quantitative blood xcpt reagent strip Maya Palomoodgrass DO Work Phone: Start: 08-05-2023 Basic metabolic panel calcium total Maya Smythgrass DO Work Phone: Start: 08-05-2023 Manual Differential panel - Blood Maya Smythgrass DO Work Phone: Start: 08-04-2023 Glucose quantitative blood xcpt reagent strip Maya Smythgrass DO Work Phone: Start: 08-04-2023 Glucose quantitative blood xcpt reagent strip Maya Palomoodgrass DO Work Phone: Start: 08-04-2023 Basic metabolic panel calcium total Maya Del Real DO Work Phone: Start: 08-04-2023 Blood typing serologic rh (d) Maay Smythgrass DO Work Phone: Start: 08-04-2023 Glucose quantitative blood xcpt reagent strip Maya Smythgrass DO Work Phone: Start: 08-04-2023 Radiologic exam chest single view Maya Smythgrass DO Work Phone: Start: 08-04-2023 Glucose quantitative blood xcpt reagent strip Maya Palomoodgrass DO Work Phone: Start: 08-04-2023 Comprehensive metabolic panel Reyna Hernandez CANOE INSPECTOR FINAL - DIRECTOR PROFESSIONAL SERVICES Work Phone: Start: 08-04-2023 Drug screen quantitative vancomycin Maya Palomoodgrass DO Work Phone: Start: 08-04-2023 Manual Differential panel - Blood Reyna Calderón CANOE INSPECTOR FINAL - DIRECTOR PROFESSIONAL SERVICES Work Phone: Start: 08-03-2023 Glucose quantitative blood xcpt reagent strip Maya Vijay-Irene DO Work Phone: Start: 08-03-2023 Thromboplastin time partial plasma/whole blood Reyna Brownodin-Amy CANOE INSPECTOR FINAL - DIRECTOR PROFESSIONAL SERVICES Work Phone: Start: 08-03-2023 Glucose quantitative blood xcpt reagent strip Maya Vijay-Irene DO Work Phone: Start: 08-03-2023 Glucose quantitative blood xcpt reagent strip Maya Vijay-Irene DO Work Phone: Start: 08-03-2023 Us abdominal real time w/image limited Anibal Black CANOE INSPECTOR FINAL - DIRECTOR PROFESSIONAL SERVICES Work Phone: Start: 08-03-2023 Basic metabolic panel calcium total Maya Vijay-Irene DO Work Phone: Start: 08-03-2023 Glucose quantitative blood xcpt reagent strip Maya Vijay-Irene DO Work Phone: Start: 08-03-2023 Calcium ionized Reyna Berrodin-Pin ter CANOE INSPECTOR FINAL - DIRECTOR PROFESSIONAL SERVICES Work Phone: Start: 08-03-2023 Glucose quantitative blood xcpt reagent strip Maya Vijay-Irene DO Work Phone: Start: 08-03-2023 Basic metabolic panel calcium total Reyna Berrodin-Amy CANOE INSPECTOR FINAL - DIRECTOR PROFESSIONAL SERVICES Work Phone: Start: 08-03-2023 EXTRA TUBES Maya Vijay-Irene DO Work Phone: Start: 08-03-2023 LIGHT BLUE TOP Maya Vijay-Irene DO Work Phone: Start: 08-02-2023 End: 08-03-2023 Comprehensive metabolic panel Reyna Be rrodin-Amy CANOE INSPECTOR FINAL - DIRECTOR PROFESSIONAL SERVICES Work Phone: Start: 08-02-2023 End: 08-02-2023 Glucose quantitative blood xcpt reagent strip Maya Vijay-Irene DO Work Phone: Start: 08-02-2023 End: 08-02-2023 Basic metabolic panel calcium total Reyna Calderón CANOE INSPECTOR FINAL - DIRECTOR PROFESSIONAL SERVICES Work Phone: Start: 08-02-2023 End: 08-02-2023 Thromboplastin time partial plasma/whole blood Reyna Calderón CANOE INSPECTOR FINAL - DIRECTOR PROFESSIONAL SERVICES Work Phone: Start: 08-02-2023 Ct thorax w/o contrast material Maya Vijay-Irene DO Work Phone: Start: 08-02-2023 Ct abdomen & pelvis w/o contrast material Maya Vijay-Irene DO Work Phone: Start: 08-02-2023 Glucose quantitative blood xcpt reagent strip Maya Vijay-Irene DO Work Phone: Start: 08-02-2023 End: 08-02-2023 Glucose quantitative blood xcpt reagent strip Maya Vijay-Irene DO Work Phone: Start: 08-02-2023 Basic metabolic panel calcium total Reyna Calderón CANOE INSPECTOR FINAL - DIRECTOR PROFESSIONAL SERVICES Work Phone: Start: 08-02-2023 Radiologic exam chest single view Maya Vijay-Irene DO Work Phone: Start: 08-02-2023 Glucose quantitative blood xcpt reagent strip Maya Vijay-Irene DO Work Phone: Start: 08-02-2023 End: 08-02-2023 Thromboplastin time partial plasma/whole blood Reyna Calderón CANOE INSPECTOR FINAL - DIRECTOR PROFESSIONAL SERVICES Work Phone: Start: 08-02-2023 End: 08-02-2023 Glucose quantitative blood xcpt reagent strip Maya Vijay-Irene DO Work Phone: Start: 08-02-2023 Antibody identification platelet antibodies Maya Vijay-Irene DO Work Phone: Start: 08-02-2023 End: 08-02-2023 Basic metabolic panel calcium total Reyna PerezAmy CANOE INSPECTOR FINAL - DIRECTOR PROFESSIONAL SERVICES Work Phone: Start: 08-02-2023 Glucose quantitative blood xcpt reagent strip Maya Vijay-Irene DO Work Phone: Start: 08-02-2023 Blood gases any combination ph pco2 po2 co2 hco3 Maya Del Real DO Work Phone: Start: 08-02-2023 End: 08-02-2023 Blood count complete auto&auto difrntl wbc Reyna Calderón CANOE INSPECTOR FINAL - DIRECTOR PROFESSIONAL SERVICES Work Phone: Start: 08-02-2023 Manual Differential panel - Blood Reyna Calderón CANOE INSPECTOR FINAL - DIRECTOR PROFESSIONAL SERVICES Work Phone: Start: 08-02-2023 Bacteria identified in Blood by Culture Maya Del Real DO Work Phone: Start: 08-02-2023 End: 08-02-2023 Glucose quantitative blood xcpt reagent strip Maya Del Real DO Work Phone: Start: 08-01-2023 Radiologic exam chest single view Maya Del Real DO Work Phone: Start: 08-01-2023 End: 08-02-2023 Comprehensive metabolic panel Reyna Hernandez CANOE INSPECTOR FINAL - DIRECTOR PROFESSIONAL SERVICES Work Phone: Start: 08-01-2023 Drug screen quantitative vancomycin Anisa Petersen MD Work Phone: Start: 08-01-2023 Manual Differential panel - Blood Reyna Calderón CANOE INSPECTOR FINAL - DIRECTOR PROFESSIONAL SERVICES Work Phone: Start: 08-01-2023 Blood gases any combination ph pco2 po2 co2 hco3 Maya Del Real DO Work Phone: Start: 08-01-2023 End: 08-01-2023 Smr prim src gram/giemsa stain bct fungi/cell Reyna Calderón CANOE INSPECTOR FINAL - DIRECTOR PROFESSIONAL SERVICES Work Phone: Start: 08-01-2023 Glucose quantitative blood xcpt reagent strip Maya Del Real DO Work Phone: Start: 08-01-2023 End: 08-01-2023 Comprehensive metabolic panel Reyna Be Mary CANOE INSPECTOR FINAL - DIRECTOR PROFESSIONAL SERVICES Work Phone: Start: 07-31-2023 End: 07-31-2023 Glucose quantitative blood xcpt reagent strip Maya Vijay-Irene DO Work Phone: Start: 07-31-2023 End: 07-31-2023 Assay of lactate Reyna ferreira CANOE INSPECTOR FINAL - DIRECTOR PROFESSIONAL SERVICES Work Phone: Start: 07-31-2023 End: 07-31-2023 Basic metabolic panel calcium total Reyna Calderón CANOE INSPECTOR FINAL - DIRECTOR PROFESSIONAL SERVICES Work Phone: Start: 07-31-2023 End: 07-31-2023 Blood count complete automated Maya Vijay-Irene DO Work Phone: Start: 07-31-2023 Glucose quantitative blood xcpt reagent strip Maya Vijay-Irene DO Work Phone: Start: 07-31-2023 Glucose quantitative blood xcpt reagent strip Maya Vijay-Irene DO Work Phone: Start: 07-31-2023 Antibody screen rbc each serum technique Maya Vijay-Irene DO Work Phone: Start: 07-31-2023 End: 07-31-2023 Comprehensive metabolic panel Reyna Hernandez CANOE INSPECTOR FINAL - DIRECTOR PROFESSIONAL SERVICES Work Phone: Start: 07-31-2023 TTE w or wo alex cardoso,Doppler Reyna Murphy CANOE INSPECTOR FINAL - DIRECTOR PROFESSIONAL SERVICES Work Phone: Start: 07-31-2023 End: 07-31-2023 Glucose [...] stent Bashir bonilla MD Work Phone: Start: 07-31-2023 End: 07-31-2023 Basic metabolic panel calcium total Reyna Vazquez-Amy CANOE INSPECTOR FINAL - DIRECTOR PROFESSIONAL SERVICES Work Phone: Start: 07-31-2023 Manual differential performed [Presence] in Blood Reyna Berrodin-Amy CANOE INSPECTOR FINAL - DIRECTOR PROFESSIONAL SERVICES Work Phone: Start: 07-31-2023 Radiologic exam chest single view Reyna Brownodin-Amy CANOE INSPECTOR FINAL - DIRECTOR PROFESSIONAL SERVICES Work Phone: Start: 07-31-2023 End: 07-31-2023 Glucose quantitative blood xcpt reagent strip Maya Del Real DO Work Phone: Start: 07-31-2023 End: 07-31-2023 Assay of troponin quantitative Reyna Vazquez-Amy CANOE INSPECTOR FINAL - DIRECTOR PROFESSIONAL SERVICES Work Phone: Start: 07-31-2023 Radiologic exam chest single view Maya Vijay-Irene DO Work Phone: Start: 07-31-2023 HCS CENTRAL VENOUS CATHETER TRIPLE LUMEN Reyna Vazquez-Amy CANOE INSPECTOR FINAL - DIRECTOR PROFESSIONAL SERVICES Work Phone: Start: 07-31-2023 Insj non-tunneled central venous cath age 3 yr/> Reyna Brownodin-Amy CANOE INSPECTOR FINAL - DIRECTOR PROFESSIONAL SERVICES Work Phone: Start: 07-31-2023 Ct abdomen & pelvis w/o contrast material Reyna Brownodin-Amy CANOE INSPECTOR FINAL - DIRECTOR PROFESSIONAL SERVICES Work Phone: Start: 07-31-2023 Blood gases any combination ph pco2 po2 co2 hco3 Mayamelissa Mccray-Irene DO Work Phone: Start: 07-30-2023 End: 07-31-2023 Thromboplastin time partial plasma/whole blood Reyna Brownodin-Amy CANOE INSPECTOR FINAL - DIRECTOR PROFESSIONAL SERVICES Work Phone: Start: 07-30-2023 End: 07-30-2023 Basic metabolic panel calcium total Reyna BrownEdward CANOE INSPECTOR FINAL [facility] Work Phone: Start: 07-30-2023 Sars-cov-2 detection by dna/rna Reyna KevinEdward [facility] Work Phone: Start: 07-30-2023 Blood gases any combination ph pco2 po2 co2 hco3 Cesario Lemon MD Work Phone: Start: 07-30-2023 Ecg routine ecg w/least 12 lds trcg only w/o i&r Cesario Lemon MD Work Phone: Start: 07-30-2023 End: 07-30-2023 Comprehensive metabolic panel Cesario glasgow MD Work Phone: Start: 07-30-2023 End: 07-30-2023 Creatinine other source Reyna George Trevino [facility] Work Phone: Start: 07-30-2023 Culture bacterial quanttative [...] Glucose quantitative blood xcpt reagent strip Fahad Champion DO Work Phone: Start: 01-08-2023 Mri spinal canal cervical w/o contrast matrl Apolinar Hilda MD Work Phone: Start: 01-08-2023 Assay of [...] 08-07-2022 Basic metabolic panel calcium total Juan Juan Manuel DO Work Phone: Start: 08-07-2022 Glucose quantitative [...] Culture bacterial quanttative colony count urine Juan Louispko DO Work Phone: Start: 08-04-2022 Urinalysis complete panel - Urine Nate Kerline DO Work Phone: Start: 08-04-2022 Glucose quantitative [...] Bacteria identified in Blood by Culture Peter Carbone APRN - DIRECTOR PROFESSIONAL SERVICES Work Phone: Start: 06-11-2022 Glucose quantitative blood xcpt reagent strip Franchesca Mckeon MD Work Phone: Start: 06-11-2022 End: 06-11-2022 Comprehensive metabolic panel Peter joshi APRN - DIRECTOR PROFESSIONAL SERVICES Work Phone: Start: 06-11-2022 Manual differential performed [Presence] in Blood Peter Carbone CANOE INSPECTOR FINAL - DIRECTOR PROFESSIONAL SERVICES Work Phone: Start: 06-10-2022 Glucose quantitative blood xcpt reagent strip Franchesca Mckeon MD Work Phone: Start: 06-10-2022 End: 06-10-2022 Comprehensive metabolic panel Peter joshi CANOE INSPECTOR FINAL - DIRECTOR PROFESSIONAL SERVICES Work Phone: Start: 06-10-2022 Glucose quantitative blood xcpt reagent strip Franchesca Mckeon MD Work Phone: Start: 06-10-2022 Assay of lactate Franchesca Mckeon MD Work Phone: Start: 06-10-2022 Fluoroscopy up to 1 hour physician/qhp time Annette Bejarano DO Work Phone: Start: 06-10-2022 AEROBIC AND ANAEROBIC CULTURE WITH STAIN Annette Bejarano DO Work Phone: Start: 06-10-2022 Culture bacterial any source anaerobic iso&id Annette Bejarano DO Work Phone: Start: 06-10-2022 End: 06-10-2022 Cysto bladder w/ureteral catheterization Annette Bejarano DO Work Phone: Start: 06-10-2022 Culture bacterial quanttative colony count urine Patricia Avilez APRN - SET UP AND LAY OUT INSPECTOR Work Phone: Start: 06-10-2022 Protein total xcpt refractometry urine Jonathan Hardwick MD Work Phone: Start: 06-10-2022 Urinalysis complete panel - Urine Patricia Avilez APRN - SET UP AND LAY OUT INSPECTOR Work Phone: Start: 06-10-2022 TTE w or wo Richard barber MD Work Phone: Start: 06-10-2022 Ct abdomen & pelvis w/o contrast material Patricia Avilez APRN - SET UP AND LAY OUT INSPECTOR Work Phone: Start: 06-10-2022 End: 06-10-2022 Comprehensive metabolic panel Peter joshi CANOE INSPECTOR FINAL - DIRECTOR PROFESSIONAL SERVICES Work Phone: Start: 06-10-2022 Glucose quantitative blood xcpt reagent strip Franchesca Mckeon MD Work Phone: Start: 06-10-2022 Assay of lactate Peter Carbone APRN - [facility] Work Phone: Start: 06-10-2022 Radiologic exam chest single view Franchesca Mckeon MD Work Phone: Start: 06-10-2022 Comprehensive metabolic panel Franchesca parson MD Work Phone: Start: 06-10-2022 Drug screen quantitative vancomycin Hood Mudrakola DO Work Phone: Start: 06-10-2022 Manual differential performed [Presence] in Blood Peter Carbone APRN - [facility] Work Phone: Start: 06-09-2022 Glucose quantitative blood [...] Culture bacterial quanttative colony count urine Hood Wood DO Work Phone: Start: 06-09-2022 Radiologic exam chest single view Hood Wood DO Work Phone: Start: 06-09-2022 Blood gases any combination ph pco2 po2 co2 hco3 Hood Wood DO Work Phone: Start: 06-09-2022 Bacteria identified [...] Jamie Groubert DO Work Phone: Start: 04-14-2021 Basic [...] dev cleared fda spec home use Jamie Domínguezubert DO Work Phone: Start: 04-10-2021 Urnls dip stick/tablet rgnt auto w/o microscopy Godfrey Rodriguez MD Work Phone: Start: 04-10-2021 Culture bacterial quanttative colony count urine Jamie DomínguezMagor Communicationscherie DO Work Phone: Start: 04-10-2021 Gluc bld gluc mntr dev cleared fda spec home use Jamie DomínguezMagor Communicationst DO Work Phone: Start: 04-10-2021 End: 04-10-2021 Creatinine blood Jamie [employer] DO Work Phone: Start: 04-10-2021 Gluc bld gluc mntr dev cleared fda spec home use Jamie DomínguezMagor Communicationst DO Work Phone: Start: 04-10-2021 Basic metabolic panel calcium total Muna Velázquez MD Work Phone: Start: 04-09-2021 Gluc bld gluc mntr dev cleared fda spec home use Jamie Domínguezubert DO Work Phone: Start: 04-09-2021 Gluc bld gluc mntr dev cleared fda spec home use Kamran Cassidy MD Work Phone: Start: 04-09-2021 Gluc bld gluc mntr dev cleared fda spec home use Jamie Domínguezubert DO Work Phone: Start: 04-09-2021 Gluc bld gluc mntr dev cleared fda spec home use Jamie Domínguezubert DO Work Phone: Start: 04-09-2021 Basic metabolic [...] Start: 03-30-2021 Basic metabolic panel calcium total uMna Velázquez MD Work Phone: Start: 03-29-2021 Gluc [...] Phone: Start: 03-26-2021 Assay of phosphorus inorganic Leonel huang MD Work Phone: Start: 03-25-2021 Gluc [...] dev cleared fda spec home use Jamie Rubio DO Work Phone: Start: 03-22-2021 Calcium ionized [...] Kamran Cassidy MD Work Phone: Start: 03-20-2021 MEDICARE NURSE CLINICAL BEDSIDE SWALLOW EVALUATION & TREATMENT Michaela Alyssa Chan DO Work Phone: Start: 03-20-2021 EXTUBATION [...] 03-17-2021 Radiologic exam chest single view Michaela Robledoford DO Work Phone: Start: 03-17-2021 Gluc bld [...] 03-16-2021 Radiologic exam chest single view Dalia Nathan DO Work Phone: Start: 03-16-2021 BLOOD GAS, [...] mntr dev cleared fda spec home use Naebel Jeffries MD Work Phone: Start: 03-14-2021 Gluc [...] Phone: Start: 03-13-2021 BLOOD GAS, ARTERIAL Cathy Chapincito D O Work Phone: Start: 03-13-2021 Radiologic exam abdomen 1 view Cathyignacio Beckham DO Work Phone: Start: 03-13-2021 Radiologic exam chest single view Cathy Chapincito DO Work Phone: Start: 03-13-2021 Creatinine other source Cathy Dixie quinn DO Work Phone: Start: 03-13-2021 ADD ON LAB TEST Cathy Chapincito D O Work Phone: Start: 03-13-2021 Ecg routine ecg w/least 12 lds w/i&r Cathy Chapincito DO Work Phone: Start: 03-13-2021 Blood gases [...] dev cleared fda spec home use Nabeel eJffries MD Work Phone: Start: 03-09-2021 Gluc bld [...] Author Start: 02-03-2026 Creatinine measurement Creatinine Level [facility] Start: 02-03-2026 Potassium measurement Potassium Level [facility] Start: 10-18-2025 Creatinine measurement [facility] Start: 10-18-2025 Potassium measurement [facility] Start: 12-01-2024 COVID-19 Vaccine ( season) COVID-19 Vaccine ( season) [facility] Start: 12-01-2024 Influenza vaccination Influenza Vaccine (#1) [facility] Start: 12-01-2024 [facility] Start: 11-28-2024 Creatinine measurement [facility] Start: 11-28-2024 Diabetes: Estimated Glomerular Filtration Rate for Kidney Health Diabetes: Estimated Glomerular Filtration Rate for Kidney Health [facility] Start: 11-28-2024 Potassium measurement [facility] Start: 11-28-2024 [facility] Start: 11-27-2024 Creatinine measurement Creatinine Level [facility] Start: 11-27-2024 Diabetes: Estimated Glomerular Filtration Rate for Kidney Health Diabetes: Estimated Glomerular Filtration Rate for Kidney Health [facility] Start: 11-27-2024 Potassium measurement Potassium Level [facility] Start: 08-08-2024 Creatinine measurement [facility] Start: 08-08-2024 Diabetes: Estimated Glomerular Filtration Rate for Kidney Health Diabetes: Estimated Glomerular Filtration Rate for Kidney Health [facility] Start: 08-08-2024 Potassium measurement [facility] Start: 08-08-2024 [facility] Start: 07-30-2024 Echocardiography Echocardiogram [facility] Start: 07-30-2024 [facility] Start: 07-29-2024 Hemoglobin A1c measurement [facility] Start: 07-29-2024 Screening for malignant neoplasm of colon [facility] Start: 07-08-2024 End: 07-08-2024 Patient encounter procedure 07/08/2024 1:50 PM EDT Office Visit [facility] Urology - [place] [address] [place] [address] Bashir Vásquez MD [address] [place] [address] [facility] - [place] Start: 04-02-2024 Medicare Advantage Annual Wellness Visit Medicare Advantage Annual Wellness Visit [facility] Start: 04-02-2024 [facility] Start: 01-03-2024 End: 01-03-2024 Admission to same day surgery center [facility] Comment on above: CYSTOSCOPY [31333 (CPT )] Start: 01-03-2024 End: 01-03-2024 ambulatory [facility] Start: 01-03-2024 End: 01-03-2024 Cysto w/insert ureteral stent [facility] Operating Room Start: 01-03-2024 End: 01-03-2024 Cysto w/ureteroscopy w/lithotripsy [facility] Operating Room Start: 01-03-2024 End: 01-03-[address] [facility] Operating Room Start: 01-03-2024 Subsequent hospital visit by physician [facility] Start: 12-02-2023 End: 11-24-2024 Bacteria identified in Urine by Culture Urine culture Microbiology Routine Acute cystitis without hematuria Expected: 12/02/2023 (Approximate), Expires: 11/24/2024 [facility] Work Phone: Comment on above: Expected: 12/02/2023 (Approximate), Expi res: 11/24/2024 Start: 12-02-2023 COVID-19 Vaccine () COVID-19 Vaccine () [facility] Start: 12-02-2023 COVID-19 Vaccine () COVID-19 Vaccine () [facility] Start: 12-02-2023 Influenza vaccination [facility] Start: 12-02-2023 [facility] Start: 10-05-2023 End: 10-05-2023 Patient encounter procedure 10/05/2023 10:20 AM EDT Procedure Visit [facility] [address] [place] [phone] Bashir Vásquez MD [address] [address] [facility] Start: 09-27-2023 End: 09-27-2023 Admission to same day surgery center 09/27/2023 10:00 AM EDT - 09/27/2023 12:00 PM EDT Surgery [facility] [address] [place] [phone] Bashir Vásquez MD [address] [place] [phone] CYSTOSCOPY [93533 (CPT )] [facility] Comment on above: CYSTOSCOPY [21486 (CPT )] Start: 09-27-2023 End: 09-27-2023 Anesthesia consultation 09/27/2023 10:00 AM EDT Anesthesia Event [facility] [address] [facility] [place] [address] Abdi Brennan, CANOE INSPECTOR FINAL - DIRECTOR PROFESSIONAL SERVICES [address] [place] [address] [place] [address] [facility] Start: 09-27-2023 End: 09-27-2023 Cysto w/insert ureteral stent CYSTOSCOPY WITH INSERTION URETERAL STENT Calculus of ureter 09/27/2023 10:[address] [facility] Operating Room Start: 09-27-2023 End: 09-27-2023 Cysto w/ureteroscopy w/lithotripsy CYSTOSCOPY WITH URETEROSCOPY AND OR PYELOSCOPY WITH REMOVAL OR MANIPULATION CALCULUS WITH LITHOTRIPSY Calculus of ureter 09/27/2023 10:[address] [facility] Operating Room Start: 09-27-2023 End: 09-27-2023 Cystourethroscopy CYSTOSCOPY Calculus of ureter 09/27/2023 10:[address] [facility] Operating Room Start: 09-27-2023 Subsequent hospital visit by physician 09/27/2023 10:00 AM EDT Hospital Encounter [facility] [address] [facility] [place] [phone] Bashir Vásquez MD [address] [phone] [facility] Start: 09-17-2023 End: 09-17-2023 ambulatory [facility] Start: 09-12-2023 RSV Immunization for Adults (1 - 1-dose 75+ series) RSV Immunization for Adults (1 - 1-dose 75+ series) [facility] Start: 09-12-2023 [facility] Start: 09-03-2023 End: 09-03-[address] [facility] Start: 09-03-2023 End: 09-03-2023 Cysto w/insert ureteral stent [facility] Start: 09-03-2023 End: 09-03-2023 Cysto w/ureteroscopy w/lithotripsy [facility] Operating Room Start: 09-03-2023 End: 09-03-[address] [facility] Operating Room Start: 08-22-2023 End: 08-22-2023 ambulatory [facility] Start: 06-11-2023 Diabetes: Urine Albumin-Creatinine Ratio for Kidney Health Diabetes: Urine Albumin-Creatinine Ratio for Kidney Health [facility] Start: 06-11-2023 Urine screening for protein [facility] Start: 06-11-2023 [facility] Start: 04-02-2023 Medicare Advantage Annual Wellness Visit Medicare Advantage Annual Wellness Visit [facility] Start: 04-02-2023 [facility] Start: 12-01-2022 COVID-19 Vaccine () COVID-19 Vaccine () [facility] Start: 12-01-2022 Influenza vaccination [facility] Start: 12-01-2022 [facility] Start: 09-07-2022 COVID-19 Vaccine (4 - Pfizer series) COVID-19 Vaccine (4 - Pfizer series) [facility] Start: 08-14-2022 End: 08-08-2023 Basic metabolic 1998 panel - Serum or Plasma Basic metabolic panel Lab Routine Chronic kidney disease, unspecified CKD stage Expected: 08/14/2022 (Approximate), Expires: 08/08/2023 [facility] Comment on above: Expected: 08/14/2022 (Approximate), Expi res: 08/08/2023 Start: 08-03-2022 End: 08-03-2022 Admission to same day surgery center 08/03/2022 Surgery Procedural Annette Bejarano, DO [address] [place] [address] CYSTOSCOPY, LEFT URETEROSCOPY WITH HOLMIUM LASER LITHOTRIPSY, LEFT STENT EXCHANGE [73725 (CPT )] [facility] Comment on above: CYSTOSCOPY, LEFT URETEROSCOPY WITH HOLMI UM LASER LITHOTRIPSY, LEFT STENT EXCHANGE [87274 (CPT )] Start: 08-03-2022 End: 08-03-2022 Anesthesia consultation 08/03/2022 Anesthesia Event Procedural Blanca Wood RN [facility] Start: 08-03-2022 End: 08-03-2022 Cysto w/insert ureteral stent CYSTOSCOPY WITH INSERTION URETERAL STENT Calculus of ureter 08/03/2022 12:[address] [facility] Operating [facility] Start: 08-03-2022 End: 08-03-2022 Cysto w/ureteroscopy w/lithotripsy CYSTOSCOPY WITH URETEROSCOPY AND OR PYELOSCOPY WITH REMOVAL OR MANIPULATION CALCULUS WITH LITHOTRIPSY Calculus of ureter 08/03/2022 12:[address] [facility] Operating [facility] Start: 08-03-2022 End: 08-03-2022 Cystourethroscopy CYSTOSCOPY Calculus of ureter 08/03/2022 12:[address] [facility] Operating Room Start: 08-03-2022 Subsequent hospital visit by physician 08/03/2022 Hospital Encounter Procedural Annette Bejarano, DO [address] [place] [address] [facility] Start: 07-18-2022 End: 07-18-2022 Patient encounter procedure 07/18/2022 Appointment Radiology [facility] Start: 07-13-2022 End: 07-13-2022 Admission to same day surgery center 07/13/2022 Surgery Procedural Annette Bejarano, DO [address] [place] [address] CYSTOSCOPY, LEFT URETEROSCOPY WITH HOLMIUM LASER LITHOTRIPSY, LEFT STENT EXCHANGE [71525 (CPT )] [facility] Comment on above: CYSTOSCOPY, LEFT URETEROSCOPY WITH HOLMI UM LASER LITHOTRIPSY, LEFT STENT EXCHANGE [89304 (CPT )] Start: 07-13-2022 End: 07-13-[address] [facility] Start: 07-13-2022 End: 07-13-2022 Anesthesia consultation 07/13/2022 Anesthesia Event Procedural Shante Morris RN [facility] Start: 07-13-2022 End: 07-13-2022 Cysto w/insert ureteral stent [facility] Start: 07-13-2022 End: 07-13-2022 Cysto w/ureteroscopy w/lithotripsy [facility] Start: 07-13-2022 End: 07-13-[address] [facility] Start: 07-13-2022 Subsequent hospital visit by physician 07/13/2022 Hospital Encounter Procedural Annette Bejarano DO [address] [place] [address] [facility] Start: 07-04-2022 End: 07-04-2022 ambulatory [facility] Start: 07-04-2022 End: 07-04-2022 Patient encounter procedure 07/04/2022 Office Visit Pulmonology Franchesca Mckeon MD [address] [place] [address] [facility] Start: 06-10-2022 End: 06-10-2022 Cysto bladder w/ureteral catheterization CYSTOSCOPY AND PYELOGRAM Kidney stone 06/10/2022 3:49 PM EST [facility] Operating [facility] Start: 03-08-2022 Hemoglobin A1c measurement [facility] Start: 12-01-2021 Influenza vaccination Influenza Vaccine (#1) [facility] Start: 12-01-2021 [facility] Start: 06-06-2021 Hemoglobin A1c measurement [facility] Start: 04-20-2021 End: 04-20-2021 Evaluation and management of inpatient [facility] [place] Start: 03-09-2021 [facility] Start: 02-10-2021 End: 02-11-2022 Vancomycin - RPh to Dose - IV Piggy Back . ; Indication: Skin and Soft TissueGoal Trough: 15- Start: 10-Feb-2021 End: 10-Feb-2022 Ordered: 10-Feb-2021 [place] [facility] Other Phone (unformatted): [phone] Start: 02-07-2021 End: 02-08-2022 [facility] Other Phone (unformatted): [phone] Comment on above: TO BE GIVEN IN RADIOLOGY Start: 02-06-2021 End: 02-07-2022 [facility] Other Phone (unformatted): [phone] Comment on above: IF patient HAS a [...] mg/dL or greater. Start: 02-02-2021 End: 02-03-2022 [facility] Start: 12-01-2020 [facility] Start: 08-06-2020 Lipid panel [facility] Start: 08-05-2019 Acute on chronic respiratory failure [facility] Start: 01-31-2018 Pneumococcal Vaccine: 65+ Years (2 - PCV) Pneumococcal Vaccine: 65+ Years (2 - PCV) [facility] Start: 01-31-2018 [facility] Start: 2008 Hepatitis B Vaccines (1 of 3 - Risk 3-dose series) Hepatitis B Vaccines (1 of 3 - Risk 3-dose series) [facility] Start: 2008 RSV Immunization aged 60 or older (1 - 1-dose 60+ series) RSV Immunization aged 60 or older (1 - 1-dose 60+ series) [facility] Start: 2008 [facility] Start: 09-12-2003 Screening for osteoporosis [facility] Start: 1998 Screening for malignant neoplasm of breast [facility] Start: 1998 Zoster Vaccines (1 of 2) Zoster Vaccines (1 of 2) [facility] Start: 1998 [facility] Start: 1993 Screening for malignant neoplasm of colon [facility] Start: 1988 Screening for malignant neoplasm of breast [facility] Start: 09-12-1967 DTaP/Tdap/Td Vaccines (1 - Tdap) DTaP/Tdap/Td Vaccines (1 - Tdap) [facility] Start: 09-12-1967 [facility] Start: 1966 Hepatitis C screening [facility] Start: 1966 Urine screening for protein [facility] Start: 1966 [facility] Start: 1960 Depression Monitoring Depression Monitoring [facility] Start: 1960 Depression Screening Depression Screening [facility] Start: 1960 [facility] Start: 1958 Diabetic foot examination [facility] Start: 1958 Glaucoma screening [facility] Start: 1958 Lipid panel [facility] Start: 1958 Preventive dental service [facility] Start: 1953 [facility] Start: 03-13-1949 COVID-19 Vaccine (#1) COVID-19 Vaccine (#1) [facility] Start: 03-13-1949 [facility] Start: 1948 Hepatitis B Vaccines (1 of 3 - 3-dose series) Hepatitis B Vaccines (1 of 3 - 3-dose series) [facility] Start: 1948 Hepatitis C screening [facility] Start: 1948 Lipid panel [facility] Start: 1948 Medicare Advantage Annual Wellness Visit (AWV) Medicare Advantage Annual Wellness Visit (AWV) [facility] Start: 1948 Screening for malignant neoplasm of colon [facility] Start: 1948 Screening for osteoporosis [facility] Start: 1948 [facility] Bacteria identified in Blood by Culture [employer] Work Phone: Bacteria identified in Blood by Culture [employer] Work Phone: End: 03-16-2021 Basic metabolic 2000 panel - Serum or Plasma [facility] Work Phone: Basic metabolic 2000 panel - Serum or Plasma [facility] Work Phone: End: 04-15-2021 Basic metabolic 2000 panel - Serum or Plasma [facility] Work Phone: Blood gas, arterial [facility] Work Phone: End: 07-30-2023 Blood gases, arterial measurement [facility] End: 07-30-2023 Blood gases, venous measurement [facility] Work Phone: End: 07-31-2023 Blood gases, venous measurement [facility] Work Phone: CBC W Auto Different ial panel - Blood [employer] [employer] [facility] [employer] Work Phone: End: 04-15-2021 CBC W Auto Differential panel - Blood [facility] Work Phone: CBC W Auto Different ial panel - Blood [employer] Work Phone: End: 04-10-2021 Culture, Urine [employer] [facility] [employer] Work Phone: Glucose [Mass/volume ] in Serum or Plasma [employer] Work Phone: Glucose [Mass/volume ] in Serum or Plasma [facility] Work Phone: Glucose [Mass/volume ] in Serum or Plasma [facility] Work Phone: End: 03-20-2021 Hemodialysis inpatient [facility] Work Phone: End: 03-22-2021 Hemodialysis inpatient [facility] Work Phone: End: 03-22-2021 Intermittent pulse oximetry [facility] Work Phone: End: 10-11-2024 Methicillin resistant Staphylococcus aureus (MRSA) DNA [Presence] in Nose by EZIO with probe detection [facility] Work Phone: NSTEMI, initial epis ode of care NSTEMI, initial episode of care [facility] Oxygen therapy [[facility] Data Set] [facility] Work Phone: Phosphate [Mass/volu me] in Serum or Plasma [facility] Work Phone: End: 04-15-2021 Phosphate [Mass/volume] in Serum or Plasma [employer] Phone: End: 07-31-2023 POCT venous blood gas [employer] End: 03-13-2021 Respiratory care evaluation only [facility] Work Phone: End: 08-06-2022 RF Guidance for removal of tunneled CV catheter [employer] [facility] Work Phone: Comment on above: Once for 1 Occurrences starting 08/07/19 23 until 08/06/2022 End: 04-09-2021 Urea Nitrogen, 24 hr Urine [facility] Work Phone: End: 11-28-2023 Vancomycin [Mass/volume] in Serum or Plasma --trough [employer] [facility] Work Phone: Immunizations Immunization Date Immunization Notes Care Provider Gucci kaba 01-29-2025 influenza vaccine A& B surf ant adjuvanted (Fluad) HIGH-DOSE injection 0.5 mL [facility] 01-04[facility]2021 influenza virus vacc ine, unspecified formulation Mario Portillo MD Work Phone: [facility] 01-07-2018 influenza, high dose seasonal, preservative-free Kamran Cassidy MD Work Phone: [facility] Work Phone: 01-07-2018 influenza virus vacc ine, unspecified formulation Annette Bejarano DO Work Phone: [facility] 01-31-2017 influenza virus vacc ine, unspecified formulation Kamran Cassidy MD Work Phone: [facility] Work Phone: 01-31-2017 pneumococcal polysaccharide vaccine, 23 valent Kamran Cassidy MD Work Phone: [facility] Work Phone: Payers Date Payer Category Payer Self-pay 2021 Medicare [id number] 2021 Medicare HMO [id number] 2021 Medicare [id number]. [id number] 2019 Medicaid [id number] 2019 Medicaid [id number] 1. [id number] 2014 Medicare [id number] Unknown Unknown [id number] Unknown [id number] Social History Date Type Detail Facility Assertion Tobacco smoking consumption unknown (finding) [facility] Work Phone: Tobacco smoking consumption unknown [facility] Start: 1950 Sex Assigned At [facility] Work Phone: Start: 05-30-2022 End: 08-02-2022 Exposure to SARS-CoV-2 (event) Not sure [facility] Start: 06-09-2022 Tobacco smoking status NHIS Never smoked tobacco [facility] Start: 06-09-2022 Tobacco use and exposure Smokeless tobacco non-user [facility] Start: 06-10-2022 End: 01-29-2025 Alcohol intake Lifetime non-drinker (finding) [facility] Start: 06-09-2022 History SDOH Alcohol Frequency 1 [facility] Start: 06-09-2022 History SDOH Alcohol Std Drinks 0 [facility] Start: 01-08-2023 End: 01-29-2025 History of Social function [facility] Start: 01-08-2023 End: 01-29-2025 Humiliation, Afraid, Rape, and Kick questionnaire [HARK] [facility] Within the last year , have you been afraid of your partner or ex-partner? No [facility] How often to you hav e a drink containing alcohol? Never [facility] How many standard dr inks containing alcohol do you have on a typical day? Patient does not drink [facility] Start: 01-09-2023 Sexual orientation Heterosexual (finding) [facility] Start: 10-31-2021 Sex Female (finding) [facility] (I/We) worried wheth er (my/our) food would run out before (I/we) got money to buy more. Never true [facility] Medical Equipment Procedure Code Equipment Code Equipment Origin al Text Equipment Identifier Dates [id number] Start: 06-15-2022 [id number] Start: 06-10-2022 [id number] FDA Start: 08-03-2022 [id number] Start: 07-31-2023 [id number] Start: 11-25-2023 Functional Status Date Assessment Result Facility Functional observable [facility] NEGATED: Highlighted row Functional performance Functional status health issues are not documented Disease [facility] Work Phone: Mental Status Date Assessment Result Facility 02-08-2021 Cognitive functi ons [id number] [facility] Other Phone (unformatted): [phone] 02-06-2021 Cognitive functi ons 19:16 [facility] [facility] NEGATED: Highlighted row Cognitive function [Interpretation] Cognitive status health issues are not documented Disease -[facility] Internal Medicine Work Phone: Clinical Notes 02-02-2021 to 02-04-2025 Karen Noel LPN - 02/04/2025 1:06 PM Fermin Noel LPN - 02/04/2025 1:06 PM Gabby Crsos RN - 02/04/2025 12:55 AM Gabby Cross RN - 02/03/2025 2:34 AM ESTDischarge Instr - COCAttachments Note Date & Type Note Facility 02-04-2025 Nurse Note Report called to Erika at [facility]. [facility] 02-04-2025 Nurse Note Report called to Erika at [facility]. At 0055, this RN attempted to collect [...] max assist of 2 (this RN and direct sales consultant) for posterior assessment. Pt's Heels, Buttocks/coccyx, Back, Elbows, Occiput and ears all intact. [place] and blanchable tissues noted to bilateral heels [...] pt confusion. Prevention Measures in place, including: [place] sheet with pillows/wedges, Foam heel protectors (obtained [...] chat for any questions or concerns. Thi Buenrostro, RN Pt A&0 to self only. Pts [...] to Dr. Goetz. documented in this encounter [facility] 02-04-2025 Progress note Formatting of t his note might be different from the original. MAR & Discharge med list transmitted to [facility] via [employer] per [facility] request. [facility] 02-04-2025 Miscellaneous Notes MAR & Discharge med list transmitted to [facility] via [employer] per [facility] request. Confirmed pickup time of 2 pm by transport [employer] at phone number . Location of facility drop off is [facility]. Facility notified via [employer], [facility] Pipe Oconnell notified on secure chat. Transport requested in Roundtrip. Awaiting time confirmation. Discharge order noted CM portion of JENN is complete. No precert required for return to [facility] Tasked LASTING ROOM MACHINE OPERATOR to send discharge paperwork and MAR to facility. Tasked LASTING ROOM MACHINE OPERATOR to arrange for ambulance/ cot transport. Left voice mail message for patient's daughter, Deidra, requested a call back for detailed information. Updated bedside nurse with transport time. Care Management Progress Note Short Medical why still here: encephalopathy, waxes and wanes. Receiving wound care and IV fluids. Planned Discharge Disposition: Jail/Residential Care (bedhold at [facility], no precert to return) Barriers/Today we still Wait: Administering IV medications, Clinical stability, Symptomatic control Length of Stay (Days): 6 GMLOS: 3.3 manager nicu to follow for discharge planning. Care Management Progress Note Short Medical why still here: confusion, agitation/anxiety - wax and wanes. IV ATBX. Pt refusing meds. Planned Discharge Disposition: Jail/Residential Care long term bedhold at [facility] Unable to reach pt's dtr who is listed as HCPOA. Barriers/Today we still Wait: Administering IV medications, Clinical stability, Symptomatic control, Test results (comment) Length of Stay (Days): 4 GMLOS: 3.3 Care Management Progress Note Short Medical why still here: Remains on 4S for encephalopathy with confusion and agitation/anxiety. Confusion remains, agitation/anxiety improved. Pending transition to oral antibiotics. Planned Discharge Disposition: Jail/Residential Care ([facility]) Barriers/Today we still Wait: Clinical stability, Administering [...] CarePort - confirmed patient is LTC at [facility] and does not need auth to return. Messaged attending to notify patient can return at any time. CM will follow for possible DC orders. Care Managment Initial Assessment Date: 01/30/2025 Patient Name: Salazar Coyle : 1950 Patient Information Source of Information: Patient Senior Tax Accountant Name/Contact Information: Deidra Tomlin [phone] [email or web address] Cognition/Language: Impaired Permission given to speak with patient claim representative/caregiver as indicated: Confirmation of Payer with patient/family: Yes Payer Name: [employer]et Medicare Ad[employer]at[employer] Primary and Medicaid secondary : No Confirmation of Primary Care Physician: Confirmed PCP Name: Dr. Kirsten Rivera Seen in last 2 years?: Yes Primary Caregiver: Other (Comment) If assistance needed, confirmed caregiver ready, willing and able to care for patient at discharge: Confirmed with: Living Arrangements Current Residence: Number of Floors Number of Entry Steps: Bed/Bath Levels: Facility: Jail/Residental Care Facility Name: [facility] Plan to Return: Yes Lives with: [...] Plan Patient expects to be discharged to: [facility] Discharge Planning Actions: Continue to follow Patient's Choice Rights and [employer] and Collaborative Relationships Disclosed as Indicated for Post-Acute Care: Interdisciplinary Team Engagement: Social Work Referral for: Additional Information: Chart reviewed. Patient admitted to [address] [place] [address] for treatment of UTI and Acute metabolic encephalopathy. Dementia and anxiety episodes. CHF. Wound care following. On IV Zosyn. Regular diet. Placed second call to nabor PIÑA today. Confirms patient insurance and has prescription coverage. +PCP. Agrees for patient to return to [facility] on discharge, when medically ready. Confirmed with facility patient is a residential bed hold, no authorization needed to return. Weekend team tasked to follow. Tamara Gutierrez RN Placed call to nabor Forbes today. No contact information listed on voice mail. Left this Iridologistbench loom weaver number to discuss disposition planning. Awaiting call back to confirm patient can return. Noted in H+P; patient is from [facility]. 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 No authorization needed to return. Weekend DP tasked to follow. Referral placed to return back to [facility] via Careport per TCC request. Await review and response regarding ability to accept. TCC notified. documented in this encounter [facility] 02-04-2025 Note [facility] 02-04-2025 Hospital course Narrative Images from the original note were not included. Hospitalist Discharge Summary Salazar Coyle : 1950 Admit date: 01/29/2025 Discharge date: 02/04/2025 Admitting Physician: Godwin Goetz MD Primary Care Physician: Paige Rivera DO [...] switched to DNR-CCA, recommend following up with [facility] wound clinic for wound care. Mental [...] list above and medication adjustments below in [facility] rec.The patient is discharged in improved and [...] Disposition: Patient discharged in stable condition to [facility] . Greater than 31 minutes spent discharging [...] Apply topically as needed for itching. nystatin 816267 UNIT/GM powder Commonly known as: Mycostatin oxyCODONE [...] lotion Commonly known as: Lac-Hydrin Recommended Follow-up: [facility] Wound Care & Hyperbaric Oxygen Therapy - [place] [address] [facility] [id number] Paige Rivera DO [address] [facility] [address] Call Please follow up with your facility doctor. Complexity of Follow up: [] Moderate Complexity: follow up within 7-14 calendar days (78673) [x] Severe Complexity: follow up within 7 calendar days (79231) Follow up Testing, Pending results or Referrals [...] Tesha Mcnamara MD Division of Hospitalist Medicine [facility] 02/04/2025, 11:53 AM [1] Past Medical History: Diagnosis Date A-fib (HCC) Anemia Diabetes (HCC) Lymphedema Obesity documented in this encounter [facility] 02-04-2025 Progress note Formatting of t his note might be different from the original. Confirmed pickup time of 2 pm by transport [employer] at phone number . Location of facility drop off is [facility]. Facility notified via [facility], [facility] Pipe Oconnell notified on secure chat. [facility] 02-04-2025 Progress note Formatting of t his note might be different from the original. Transport requested in Roundtrip. Awaiting time confirmation. [facility] 02-04-2025 Progress note Formatting of t his note might be different from the original. Discharge order noted CM portion of JENN is complete. No precert required for return to [facility] Tasked LASTING ROOM MACHINE OPERATOR to send discharge paperwork and MAR to facility. Tasked LASTING ROOM MACHINE OPERATOR to arrange for ambulance/ cot transport. Left voice mail message for patient's daughter, Deidra, requested a call back for detailed information. Updated bedside nurse with transport time. [facility] 02-04-2025 Progress note Formatting of t his note might be different from the original. Care Management Progress Note Short Medical why still here: encephalopathy, waxes and wanes. Receiving wound care and IV fluids. Planned Discharge Disposition: Jail/Residential Care (bedhold at [facility], no precert to return) Barriers/Today we still Wait: Administering IV medications, Clinical stability, Symptomatic control Length of Stay (Days): 6 GMLOS: 3.3 manager nicu to follow for discharge planning. [facility] 02-04-2025 History of Present illness Narrative Hospitalist Progress Note 02/04/2025 Subjective: Admit Date: 01/29/2025 PCP: Paige Rivera DO Room#: C3-381/B4-749 A BRIEF HOSPITAL COURSE: Salazar is a [...] - Date - 02/04 - Location - [facility] - Pending the following - final clearance [...] Contact: Deidra Forbes Address: [address] [place] [address] [facility] [place] Relation: Daughter Secondary Emergency Contact: Jesus Vang Mobile Relation: Spouse Preferred language: Swiss Neurosurgeon needed? No Tesha Mcnamara MD Division of Hospitalist Medicine [facility] [1] Past Medical History: Diagnosis [...] 02/03/2025 Subjective: Admit Date: 01/29/2025 PCP: Paige Rivera, Room#: B4-466/B4-466 A BRIEF HOSPITAL COURSE: Salazar [...] Intake/Output Summary (Last 24 hours) at 02/03/2025 0749 Last data filed at 02/02/2025 1900 Gross [...] - Date - 02/04 - Location - [facility] - Pending the following - final clearance [...] Contact: Deidra Forbes Address: [address] [place] Relation: Daughter Secondary Emergency Contact: Jesus Vang Mobile Relation: Spouse Preferred language: [place] Neurosurgeon needed? No Tesha Mcnamara MD Division of Hospitalist Medicine [employer] [1] Past Medical History: Diagnosis Date A-fib [...] 3350, QUEtiapine [4] Hospitalist Progress Note 02/02/2025 [phone]: Please page me ([phone]) for patient care issues. [phone]: Please page [facility] night Hospitalist for any issues. Subjective: Admit Date: 01/29/2025 PCP: Paige Rivera DO Room#: B4-466/B4-466 A Interval History: Patient is still having on and off confusion episodes with agitation anxiety episodes. As per nursing patient continued to refuse medications. No other significant overnight issues Adult diet Regular; 5 carb choices (75 gm/meal) @[id number]@ 24HR INTAKE/OUTPUT: Intake/Output Summary (Last 24 hours) at 02/02/2025 1455 Last data filed at 02/01/2025 1900 Gross per 24 hour Intake 240 ml Output 600 ml Net -360 ml Past Medical History: Medical History[1] LABS: CBC: Recent Labs 01/31/25454 WBC 5.8 RBC 3.25* HGB 10.4* HCT 33.1* MCV 101.8* RDW 15.8* PLT 195 BMP: Recent Labs 01/31/25454 NA 149* K 3.8 CL 111* CO2 [...] MD Division of Hospitalist Medicine Inpatient Medical Services/[facility]: [phone] [1] Past Medical History: Diagnosis Date A-fib [...] 2 tablet, Oral, Nightly Hospitalist Progress Note 02/01/20256993334-6803: Please page me ([phone]) for patient care issues. [phone]: Please page [facility] night Hospitalist for any issues. Subjective: Admit Date: 01/29/2025 PCP: Paige Rivera, DO Room#: B4-044/B4-166 A Interval History: Patient is still having on and off confusion episodes with agitation anxiety episodes. As per nursing patient continued to refuse medications. No other significant overnight issues Adult diet Regular; 5 carb choices (75 gm/meal) @[id number]@ 24HR INTAKE/OUTPUT: No intake or output data [...] Anticoagulation Advance Directive: Full Code Discharge planning: AJITD Godwin Goetz MD Division of Hospitalist Medicine Inpatient Medical Services/[facility]: [phone] [1] Past Medical History: Diagnosis Date A-fib [...] 2 tablet, Oral, Nightly Hospitalist Progress Note 01/31/[phone]: Please page me ([phone]) for patient care issues. [phone]: Please page [facility] night Hospitalist for any issues. Subjective: Admit Date: 01/29/2025 PCP: Paige Rivera DO Room#: B4-466/B4-466 A Interval History: Patient is still having some confusion episodes but no agitation or anxiety noticed. As per nursing patient has been refusing medications No other significant overnight issues Adult diet Regular; 5 carb choices (75 gm/meal) @AZCN2XGFPCA@ 24HR INTAKE/OUTPUT: Intake/Output Summary (Last 24 hours) [...] MD Division of Hospitalist Medicine Inpatient Medical Services/[facility]: [phone] [1] Past Medical History: Diagnosis Date A-fib [...] tablet, Oral, Nightly Hospitalist Progress Note 01/30/2025 [phone]: Please page me ([phone]) for patient care issues. [phone]: Please page [facility] night Hospitalist for any issues. Subjective: Admit Date: 01/29/2025 PCP: Paige Rivera, DO Room#: B4-938/B4-871 A Interval History: Patient is lying on the bed, answering some of her questions appropriately but still having confusion no signs of agitation or anxiety noticed. No other significant overnight issues. Adult diet Regular; 5 carb choices (75 gm/meal) @[id number]@ 24HR INTAKE/OUTPUT: No intake or output data in the 24 hours ending 01/30/25 1749 Past Medical History: Medical History[1] LABS: CBC: [...] Anticoagulation Advance Directive: Full Code Discharge planning: CHICO Goetz MD Division of Hospitalist Medicine Inpatient Medical Services/[facility]: [phone] [1] Past Medical History: Diagnosis Date A-fib [...] Mild decrease in energy intake (Comment) (confusion captain waiter) Weight Loss: Unable to assess (need measured cbw) Body Fat Loss: No significant body fat loss Muscle Mass Loss: No significant muscle mass loss Fluid Accumulation: Moderate to Severe Extremities, Generalized Synthetic Gem Press Operator Strength: Not Performed Nutrition Assessment: 74 y.o. female admits with altered mental status from [facility]. UTI. pmhx T2DM, HTN, HLD, dementia, anemia, lymphedema, CHF, CKD. Pt observed erika breakfast meal. Pt reports good appetite -confusion noted. diet captain waiter low conc sweets, REE, regular textures per transfer notes. unable to obtain bed scale wt Estimated Daily Nutrient Needs: Energy Requirements Based On: Kcal/kg Weight Used for Energy Requirements: [place] Weight for Energy Calculation (kg): 57 kg Total Energy Requirements (kcals/day): 6150-0745 (25-30) Weight Used for Protein Requirements: [place] Weight in Kg Used for Protein Requirements: [...] (?wt noted on transfer records/ paper chart) [place] Body Weight (lbs) (Calculated): 125 lbs [place] Body Weight (Kg) (Calculated): 57 kg Weight [...] Continue current diet Susan Mclean RD Contact: *[phone] or via Secure Chat Images from the original note were not included. OCCUPATIONAL THERAPY [facility] Name/MRN: Salazar Coyle ([id number]) Date: 01/30/2025 OT will sign off of this patient for the following reason(s): Skilled therapy is not necessary: Bed bound at baseline, Raheem transfer at baseline, Requires complete ADL assist at baseline, and non-ambulatory. Severe pain noted with any physical mobility noted by RN present. Return to ECF without OT services. Na Doss OT Images from the original note were not included. PHYSICAL THERAPY [facility] Name/MRN: Salazar Coyle ([id number]) Date: 01/30/2025 PT will sign off of this patient for the following reason(s): Skilled therapy is not necessary: Bed bound at baseline, Raheem transfer at baseline, and Non-ambulatory. Severe pain noted with any physical mobility noted by RN present. Return to ECF without PT services. River Graves PT documented in this encounter [facility] 02-04-2025 Nurse Note At 0055, this RN attempted to collect patients blood work. Patient refused. Patient educated. Patient ultimately refusing. She stated, "I do not want to be poked anymore, no no no." Physician notified. Will continue to monitor. [facility] 02-03-2025 Consult note Associated Order (s): IP [...] and on per patient family at the long-term. -Seroquel PRN agitation, continued. She has had [...] afib, anemia, DM, lymphedema, obesity. Resides at long-term. Presented to ER with AMS, Usually alert [...] Management Advanced Directives: Health Care Power of De Icer Finisher, DNR Functional Assessment: PPS 40% mainly in bed; can't do any work/extensive disease; mainly assistance; normal or reduced intake; full or drowsy or confusion Prognosis: depends upon goals of care Spiritual Assessment: No spiritual distress identified Bereavement and Grief: To Be Determined PDMP/OARRS Reviewed: Yes-reviewed. Social history: Marital status: Children: not addressed Living status: long-term Work history: n/a status: No Adventism: None ROS: See palliative care ROS/ESAS below; Detail ROS unable to be obtained due to patient's mental status [place] Symptom Assessment Score [place] Score Pain Score (if non-verbal, add .FLACC [...] Beasley MD at 02/03/2025 3:12 PM EST wireWAX Phone: 02-03-2025 Consult note Associated Order (s): [...] and on per patient family at the long-term. -Seroquel PRN agitation, continued. She has had [...] afib, anemia, DM, lymphedema, obesity. Resides at long-term. Presented to ER with AMS, Usually alert [...] Management Advanced Directives: Health Care Power of De Icer Finisher, DNR Functional Assessment: PPS 40% mainly in bed; can't do any work/extensive disease; mainly assistance; normal or reduced intake; full or drowsy or confusion Prognosis: depends upon goals of care Spiritual Assessment: No spiritual distress identified Bereavement and Grief: To Be Determined PDMP/OARRS Reviewed: Yes-reviewed. Social history: Marital status: Children: not addressed Living status: long-term Work history: n/a status: No Adventism: None ROS: See palliative care ROS/ESAS below; Detail ROS unable to be obtained due to patient's mental status [place] Symptom Assessment Score [place] Score Pain Score (if non-verbal, add .FLACC [...] appropriate? TBD Transition Note Initiated: yes Kailey Bowman APRN - GUS [1] Past Medical History: Diagnosis Date A-fib [...] 3:12 PM EST documented in this encounter [facility] 02-03-2025 Nurse Note At 0200, this nurse [...] remains within reach. Will continue to monitor. [facility] 02-02-2025 Nurse Note At 0, this nurse attempted to give patient her nightly oral medications. Patient refused. Patient yelling, "I do not want any of it." Patient only allowed this nurse to give her the ordered nightly lantus. Patient educated, but ultimately refused all oral medications. Call light remains within reach of the patient. Will continue to monitor. [facility] 02-02-2025 Progress note Formatting of t his note might be different from the original. Care Management Progress Note Short Medical why still here: confusion, agitation/anxiety - wax and wanes. IV ATBX. Pt refusing meds. Planned Discharge Disposition: Jail/Residential Care long term bedhold at [facility] Unable to reach pt's dtr who is listed as HCPOA. Barriers/Today we still Wait: Administering IV medications, Clinical stability, Symptomatic control, Test results (comment) Length of Stay (Days): 4 GMLOS: 3.3 [facility] 02-01-2025 Nurse Note Pt throughout shift refusing turns and incontinece care. Pt educated multiple times on relieving pressure to help preent bed sores. Pt declined. Pt also refusing to have purwick removed at this time. Dr. Goetz Notified [facility] 02-01-2025 Nurse Note This RN and [...] meals at this time. Dr. Goetz Notified. [facility] 02-01-2025 Note Patient refused her PO medication and morning labs to be drawn she keeps yelling to get out of her room education but patient is not agreeable. [facility] 02-01-2025 Nurse Note Patient refused her PO medication and morning labs to be drawn she keeps yelling to get out of her room education but patient is not agreeable. [facility] 01-31-2025 Nurse Note Patient refused to take her night medications was only able to administer her insulin shots. Will continue to monitor [facility] 01-31-2025 Hospital Discharge instructions Karen Noel LPN [...] Unit/Room#: B4-466/B4-466 A Discharging Unit Phone Number: [phone] Emergency Contact: Extended Emergency Contact Information Primary Emergency Contact: Deidra Forbes [address]: [address] [place] [address] Mobile Relation: Daughter Secondary Emergency Contact: Jesus Vang Mobile Relation: Spouse Preferred language: Swiss Neurosurgeon needed? No Past Surgical History: Past Surgical [...] spasm Type 2 diabetes mellitus with hyperglycemia ([facility]) Overview Signed 01/14/2022 2:38 PM by Interface, [...] Known to Doctor Izaguirre through consultation at [facility]. Long acting insulin: Insulin used for this [...] Chronic pain Osteoarthrosis PAF (paroxysmal atrial fibrillation) ([facility]) Cognitive decline Morbid obesity with BMI of [...] assistance Toileting Total assistance Feeding Total assistance Communications Editor Total assistance Med Delivery yes Wound Care Documentation and Therapy: Wound/Incision 10/09/24 Other (comment) Foot Right (Active) Number of days: 113 Elimination: Continence: Bowel: no Bladder: no Urinary Catheter: None Colostomy/Ileostomy/Ileal Conduit: None Date of Last BM: 02/04/25 Intake/Output Summary (Last 24 hours) at 01/31/2025 1641 Last data filed at 01/30/2025 203 Gross per 24 hour Intake -- Output [...] Date: 01/29/25 Discharging to Facility/ Agency Name: [facility] Address: [address] [place] [address], [place] [address] Iridologist/Automatic Punch Press Operator signature: ICIAN SECTION Name: Salazar Coyle Prognosis: fair Condition at Discharge: stable Rehab Potential (if transferring to Rehab): fair Recommended Labs or Other Treatments After Discharge: continue wound care - legs do not have cellulitis - chronic changes, no DVT on imaging while inpatient. The individual is being admitted to a nursing facility directly from an [facility] or a unit of a [place] [facility] that is not operated by or licensed by [facility] under section 5119.14 or 5160-3-15.1 5 The individual requires the level of services provided by a nursing facility for the condition for which he or she was treated in the hospital and, Physician Certification: I certify the above information and transfer of Salazar Coyle is necessary for the continuing treatment of the diagnosis listed and that she requires group home facility for less than 30 days. Update [...] DNR-CCA, PHYSICIAN SIGNATURE: documented in this encounter [facility] 01-31-2025 Nurse Note Patient refusing all medications, refusing to have blood glucose checked, and refusing to be turned. [facility] 01-31-2025 Progress note Formatting of t his note might be different from the original. Care Management Progress Note Short Medical why still here: Remains on 4S for encephalopathy with confusion and agitation/anxiety. Confusion remains, agitation/anxiety improved. Pending transition to oral antibiotics. Planned Discharge Disposition: Jail/Residential Care ([facility]) Barriers/Today we still Wait: Clinical stability, Administering [...] CarePort - confirmed patient is LTC at [facility] and does not need auth to return. Messaged attending to notify patient can return at any time. CM will follow for possible DC orders. [facility] 01-30-2025 Nurse Note Patient refusing all meds at present. Patient refusing to allow staff to turn patient. Patient screaming to get out of her room. Patient incontinent of urine. [facility] 01-30-2025 Progress note Formatting of t his note might be different from the original. Care Managment Initial Assessment Date: 01/30/2025 Patient Name: Salazar Coyle : 1950 Patient Information Source of Information: Patient Senior Tax Accountant Name/Contact Information: Deidra Forbes Daughter [phone] [email or web address] Cognition/Language: Impaired Permission given to speak with patient claim representative/caregiver as indicated: Confirmation of Payer with [...] Number of Entry Steps: Bed/Bath Levels: Facility: Jail/Residental Care Facility Name: [facility] Plan to Return: Yes Lives with: [...] Plan Patient expects to be discharged to: [facility] Discharge Planning Actions: Continue to follow Patient's Choice Rights and [employer] and Collaborative Relationships Disclosed as Indicated for Post-Acute Care: Interdisciplinary Team Engagement: Social Work Referral for: Additional Information: Chart reviewed. Patient admitted to [address] [place] [address] for treatment of UTI and Acute metabolic encephalopathy. Dementia and anxiety episodes. CHF. Wound care following. On IV Zosyn. Regular diet. Placed second call to nabor PIÑA today. Confirms patient insurance and has prescription coverage. +PCP. Agrees for patient to return to [facility] on discharge, when medically ready. Confirmed with facility patient is a residential bed hold, no authorization needed to return. Weekend team tasked to follow. Tamara Gutierrez RN [facility] 01-30-2025 Progress note Formatting of t his note might be different from the original. Placed call to daughter Deidra Forbes today. No contact information listed on voice mail. Left this Iridologistbench loom weaver number to discuss disposition planning. Awaiting call back to confirm patient can return. Noted in H+P; patient is from [facility]. Facility responded patient is residential and a bed hold. No authorization needed to return. Weekend DP tasked to follow. [facility] 01-30-2025 Note Referral placed to alyssa danielsonurn back to [facility] via Careport per TCC request. Await review and response regarding ability to accept. TCC notified. [facility] 01-30-2025 Progress note Formatting of t his note might be different from the original. Referral placed to return back to [facility] via Careport per TCC request. Await review and response regarding ability to accept. TCC notified. [facility] 01-30-2025 Nurse Note Wound Care consulted for Pressure Injury Prevention. Pt's Alex score= 12 on 01/30 Pt's pressure points assessed. Pt turned with max assist of 2 (this RN and direct sales consultant) for posterior assessment. Pt's Heels, Buttocks/coccyx, Back, Elbows, Occiput and ears all intact. [place] and blanchable tissues noted to bilateral heels [...] pt confusion. Prevention Measures in place, including: [place] sheet with pillows/wedges, Foam heel protectors (obtained [...] questions or concerns. Thi Buenrostro RN T [facility] 01-29-2025 Nurse Note Pt A&0 to self [...] updated. Message sent to Dr. Goetz. T [facility] 01-29-2025 History and physical note Attending History [...] patient's PCP. Thank you. Electronically signed by @MEMDNR@ on @TDNR@ at @NOWNR@ [1] Past Medical [...] for itching., Disp: , Rfl: nystatin (Mycostatin) 476548 UNIT/GM powder, , Disp: , Rfl: senna-docusate (Helena-Colace) 8.6-50 MG tablet, Take 100 tablets by mouth Every 24 hours., Disp: , Rfl: [facility] 01-29-2025 Note [facility] 01-29-2025 History and physical note Attending History [...] patient's PCP. Thank you. Electronically signed by @MEMDNR@ on @TDNR@ at @NOWNR@ [1] Past Medical [...] for itching., Disp: , Rfl: nystatin (Mycostatin) 745514 UNIT/GM powder, , Disp: , Rfl: senna-docusate (Helena-Colace) 8.6-50 MG tablet, Take 100 tablets by mouth Every 24 hours., Disp: , Rfl: documented in this encounter [facility] 01-29-2025 Emergency department Note GRID TRIMMER called to attempt IV access [facility] 01-29-2025 Emergency department Note GRID TRIMMER called to attempt IV access Emergency Department Encounter Pt Name: Salazar Coyle Birthdate 1950 Date of evaluation: 01/29/2025 Provider: Mario Portillo MD CHIEF COMPLAINT Chief Complaint Patient presents with Altered Mental Status Pt arrives via EMS from [facility] for AMS. Per report pt family was [...] CVA ED course: ED Course as of 01/30/25 0731 Celeste Jan 29, 2025 1133 UA is [...] [AK] Mario Portillo MD Diagnoses as of 01/30/25 0731 Encephalopathy Urinary tract infection without hematuria, site unspecified Chronic conditions and social determinants of health affecting care: recurrent UTI DISPOSITION/PLAN Admit 01/29/2025 01:15:38 PM Mario Portillo MD Emergency Medicine [1] Past Medical History: Diagnosis Date A-fib (HCC) Anemia Diabetes (HCC) Lymphedema Obesity Mario Portillo MD 01/30/25 0731 documented in this encounter [facility] 01-29-2025 Physician Emergency department Note Emergency Department Encounter Pt Name: Salazar Coyle Birthdate 1950 Date of evaluation: 01/29/2025 Provider: Mario Portillo MD CHIEF COMPLAINT Chief Complaint Patient presents with Altered Mental Status Pt arrives via EMS from [facility] for AMS. Per report pt family was [...] CVA ED course: ED Course as of 01/30/25 0731 Celeste Jan 29, 2025 1133 UA is [...] [AK] Mario Portillo MD Diagnoses as of 01/30/25 0731 Encephalopathy Urinary tract infection without hematuria, site unspecified Chronic conditions and social determinants of health affecting care: recurrent UTI DISPOSITION/PLAN Admit 01/29/2025 01:15:38 PM Mario Portillo MD Emergency Medicine [1] Past Medical History: Diagnosis Date A-fib (HCC) Anemia Diabetes ([facility]) Lymphedema Obesity Mario Portillo MD 01/30/25 0731 [facility] 10-18-2024 Miscellaneous Notes Problem: Knowledge Deficit Goal: [...] All Providers Sent Referral Name: Alis Phone: [phone] Address: [address] [place] [address] [address] [place] [address] Next Site of Care Admission Date: 10/09/2024 02:27 PM Patient Name: SALAZAR COYLE Location: [address] [facility] [id number] B Date of : 1950 ------ Placement Information ------ Referral Type:Jail/SNF - Return Referral ID:[id number] Provider Name: Address 1: Phone Number: Address 2: Fax Number: City: Selection Factors: State: Referral Type:Jail/SNF - New Referral ID:[id number] Provider Name: Address 1: Phone Number: Address 2: Fax Number: City: Selection Factors: State: Referral Type:Jail ICF - Return Referral ID:[id number] Provider Name:[facility] Address 1:[address] Address 2: City:[place] Selection Factors:Returning to Facility State:[place] Care Management Progress Note Short Medical why still here: Medically stable for DC Planned Discharge Disposition: Fpc Facility ([facility]) Barriers/Today we still Wait: Attending completion of discharge workflow Length of Stay (Days): 9 GMLOS: 4.9 Plan is for patient to return to [facility] LT facility. Transport already arranged by weekday staff [...] as appropriate. Received return LTC response from [facility] - confirmed they're aware of DC this AM. Sent MAR. Will send DC Summary once available. Sent [...] they decided for patient to return to [facility] until they got her medicaid figured out. Did update attending and primary care nurse of this. Did update [facility] of this and also [facility] and transport scheduled for 10 am tomorrow via roundtrip link. Did update [facility] of this via careOneStopWeb. Did call and update patient's daughter Deidra of transport time for tomorrow and that there is always possibility of a bill with ambulance transport. She acknowledges verbal understanding of this. Weekend TCC updated to follow. . [facility] did confirm that patient's family did not visit yesterday. Called and spoke with patient's daughter Deidra to discuss. She stated, " we did not go because somebody from the hospital called and told us that we could transfer her from [facility] and they were in a hurry to get her back. " Did update daughter that she spoke with this TCC yesterday and asked if she remembered requesting that attending call and speak with her dad to discuss discharge and that after attending spoke with her dad, her dad stated they were going to [facility] yesterday afternoon. She did not hear from her dad yesterday after attending contacted him. Did discuss with Deidra that TCC had discussed with [facility] and they do have private rooms available, but would need to get patient's medicaid figured out, as it had lapsed and would need to complete financial questionnaire to accept patient under medicaid pending. Deidra was agreeable to patient returning to [facility] and that patient could be transferred from [facility] until medicaid could be figured out. She requested that TCC contact her father Jesus and update him that had spoken with her today and our conversation. Did call patient's spouse Jesus to discuss. Did ask him if he was able to get to her [facility] yesterday and he stated no because they called and someone at the facility told them that the person they needed to talk to was not available yesterday and they were going back this afternoon to meet with them. He did state he was aware of paperwork needing to be completed. Did contact Camille from admissions at [facility] and she verified that they had not received any calls from the family yesterday. Attempted to call daughter Deidra back x 2 to discuss and had to leave a message. . Care Management Progress Note Short Medical why still here: messaged [facility] hector Stephens to determine if family was able to visit yesterday and if they were able to verify medicaid. Awaiting reply. Will update attending and primary care nurse once if facility is able to accept. Planned Discharge Disposition: Fpc Facility Barriers/Today we still Wait: Clinical stability, [...] intake Outcome: Progressing Sent updated notes to [facility] via [employer] per [facility] request. Await review and response regarding ability to accept. [facility] notified. Did speak with patient's daughter Deidra and updated that patient is stable for discharge today. She did verbalize that she wished for her mom not to return to [facility] and was hoping this could occur straight from the hospital. She did request that attending call and speak with her dad and patient's spouse Jesus regarding. Did update attending via [facility] chat and he did speak with patient's spouse. Spouse did state that family planned to visit [facility] this afternoon and that family wished for patient not to return to [facility]. Did call and spoke with Camille in admissions at [facility] (previous referral had been placed to facility, earlier during hospitalization)and updated that patient's family was planning on touring their facility today and did ask if they had private rooms available as daughter did want to make sure of this. She did state they do have private rooms available. Did task LASTING ROOM MACHINE OPERATOR to send updates to them via [employer]. Also, updated Camille that per [facility] patient has medicaid as a secondary payer. Reviewed documentation sent over from [facility] and patient is listed as medicaid pending. Did call to discuss this with Sumanth at [facility] and she did discuss with her team and patient's medicaid lapsed as the renewal application form was not completed quick enough, but family has since completed and its been sent in to be reviewed by job and family services and is just awaiting reviewer there to approve. Did call and speak with Camille from [facility] and updated her of this and did update with patient's previous medicaid number. She will send in to her cooperate office to determine if they are able to bring up any active coverage.. . Reviewed notes by primary care nurse last pm regarding daughter wanting to change facilities upon discharge. Did call and leave hippa compliant message for daughter to discuss. Appears previous manager rn case had left message for daughter on 10/13 [...] intake Outcome: Progressing SENT UPDATED NOTES TO [facility] request. Await review and response regarding ability to accept. TCC notified. Care Management Progress Note Short Medical why still here: MRI of cervical spine pending for today. Speech therapy consult ordered and pending. Discharge plan remains to return to [facility] when medically stable. Updated [facility] via careOneStopWeb and tasked LASTING ROOM MACHINE OPERATOR to send updates to them. Planned Discharge Disposition: Fpc Facility Barriers/Today we still Wait: Test results (comment), Tongue Carrier recommendations (comment), Clinical stability, Symptomatic control Length [...] for right arm pain Planned Discharge Disposition: Jail/Residential Care. Pt is from [facility] and will return back to facility when medically ready. No auth needed to return. Barriers/Today we still Wait: Administering IV medications, Clinical stability, Symptomatic control Was not able to touch base with daughter. Per palliative note on 10/10, pt was to remain a full code with the hospital stay. Since pt was not enrolled in hospice, she will be returning to [facility]. manager nicu to follow and assist as needed. Length [...] pulmonology following, IV ATB Planned Discharge Disposition: Jail/Residential Care Barriers/Today we still Wait: Administering IV medications, Clinical stability, Symptomatic control. Per case management note on 10/10, pt is LTC and bedbound at [facility]. However,there was mention of possibly getting hospice on board. Attempted to call daughter and JAKY Gay, but had to leave a HIPAA compliant voice message asking for return call to clarify discharge plan. Will attempt to reach out again tomorrow for clarification. manager nicu to follow and assist as needed. Length [...] process, treatment plan, medications, and discharge instructions 10/12/2024 0157 by Tiffanie Albert RN Outcome: Not Progressing [...] Progressing Goal: Glucose maintained within prescribed range 10/12/2024 0157 by Tiffanie Albert RN Outcome: Not Progressing 10/12/2024 0020 by Tiffanie Albert RN Outcome: Not Progressing Problem: Problem Interventions Goal: Promote nutritional intake 10/12/2024 015 by Tiffanie Albert RN Outcome: Not Progressing [...] Progressing Referral placed to return back to [facility] via Careport per TCC request. Await review and response regarding ability to accept. TCC notified. Referral placed to [facility] via Careport per TCC request. Await review and response regarding ability to accept. TCC notified. Care Management Progress Note Short Medical why still here: Sepsis POC LEXA 02: does not have at baseline Planned Discharge Disposition: pending I spoke to dianer/Deidra The patient has been at [facility] in [place] for approx 6ys: she is bedbound She is interested in Hospice discussion and requests SUPERCHARGER REPAIR SUPERVISOR conversation as well. notified If she decides on Hospice would like [facility] with Hospice Care if they can provide I tasked [facility] to send return referral to [facility] in [place] and new referral to [facility] to check bed availability Barriers/Today we still [...] limits Outcome: Progressing Family Communication Number Called: [phone] Name of Designated Family Senior Tax Accountant: Deidra Vang Relationship: daughter Phone Call Outcome: I spoke with the individual listed above. Family Senior Tax Accountant Updated on the Following: spoke to Deidra about patient status, need for central access. Consent obtained. Expressed concern about patient's living situation. documented in this encounter [facility] 10-18-2024 Note [facility] 10-18-2024 Hospital course Narrative Images from the [...] in stable condition to SNF LABS: CBC: Recent Labs 10/16/2445510/17/2443710/18/24 0413 WBC 5.2 5.7 5.3 RBC 3.37* 3.44* 3.33* HGB 10.5* 10.7* 10.3* HCT 32.9* 33.8* 33.1* MCV 97.6 98.3 99.4* RDW 14.3 14.6 14.6 PLT 182 210 198 BMP: Recent Labs 10/16/2445510/17/2443710/18/24 041 NA 145 143 144 K 3.8 3.8 4.2 CL 110* 108* 110* CO2 30 27 27 BUN 23 29* 29* CREATININE 0.74 0.76 0.77 GLUCOSE 167* 156* 178* CALCIUM 8.1* 8.2* 8.0* ANIONGAP 5 8 7 LIVER PROFILE: Recent Labs 10/16/2445510/17/24 0438 10/18/24 0413 AST 15 17 20 ALT <6 <6 [...] Apply topically as needed for itching. nystatin 163282 UNIT/GM powder Commonly known as: Mycostatin oxyCODONE [...] Complexity: follow up within 7-14 calendar days (37189) [x] Severe Complexity: follow up within 7 calendar days (15040) Follow up Testing, Pending results or Referrals [...] frame. Signed: Paige Rivera DO Division of Hospitalrust Medicine Inpatient Medical Services/[facility] 10/18/2024, 8:37 AM Total time Spent on Discharge: 32 minutes documented in this encounter [facility] 10-17-2024 Nurse Note Patient very [place]. Patient refusing multiple treatments, patient refusing bilateral [...] 10/14/2024 8:43 AM documented in this encounter [facility] 10-17-2024 History of Present illness Narrative Images [...] in setting of presumed acute aspiration PNA. MEDICARE NURSE sign off 10/16 "however, pt remains at risk for airway compromise and choking due to poor positioning, limited mobility, and lying completely flat to eat all meals" per MEDICARE NURSE. Pt stable for discharge per records -SNF. [...] On: Kcal/kg Weight Used for Energy Requirements: [place] Weight for Energy Calculation (kg): 57 kg Total Energy Requirements (kcals/day): 0870-6694 kcals (25-30 kcals/kg) Weight Used for Protein Requirements: [place] Weight in Kg Used for Protein Requirements: [...] Labs 10/16/24 0803 10/16/24 1120 10/16/24 1624 10/16/24201210/17/24 0739 10/17/24 1111 POCGLU 168* 220* 310* [...] bed scale) % Weight Change (Calculated): -0.3 [place] Body Weight (lbs) (Calculated): 125 lbs [place] Body Weight (Kg) (Calculated): 57 kg % [place] Body Weight (Calculated): 272.8 % BMI (kg/m2) [...] gm/meal, REE diet) Susan Mclean RD Contact: *[phone] or via Secure Chat [1] apixaban, 5 [...] , Topical, BID [2] Hospitalist Progress Note 10/17/[id number]: Please page me ([phone]) for patient care issues. [phone]: Please page [facility] night Hospitalist for any issues. Subjective: Admit [...] History: Medical History[1] LABS: CBC: Recent Labs 10/15/24 04510/16/24 0456 10/17/24 043 WBC 4.8 5.2 5.7 RBC 3.33* 3.37* 3.44* HGB 10.3* 10.5* 10.7* HCT 32.9* 32.9* 33.8* MCV 98.8 97.6 98.3 RDW 14.4 14.3 14.6 PLT 179 182 210 BMP: Recent Labs 10/15/24 0451 10/16/24 0456 10/17/24 0438 NA 143 145 143 K 3.9 3.8 3.8 CL 108* 110* 108* CO2 27 30 27 BUN 31* 23 29* CREATININE 0.81 0.74 0.76 GLUCOSE 245* 167* 156* CALCIUM 8.1* 8.1* 8.2* ANIONGAP 8 5 8 LIVER PROFILE: Recent Labs 10/15/24 0451 10/16/24 0456 10/17/24 0438 AST 15 15 17 ALT <6 [...] to have patient sent to different facility, [facility] ALFONSO stephesn following. Awaiting approval. Otherwise medically stable for [...] Contact: Deidra Vang Address: [address] [place] [address] [facility] [place] Relation: Daughter Secondary Emergency Contact: Jesus Vang Mobile Relation: Spouse Preferred language: [place] Neurosurgeon needed? No Paige Rivera DO Division of Hospitalist Medicine Inpatient Medical Services/[facility] PAGER: Epic chat [1] Past Medical History: [...] peripherally. Noted patient planned to return to [facility] for further care with SNF. Goals are clear, no symptoms to manage. Signing off. Signed, Kailey Bowman APRN, GUS, ACHPN Palliative Care/Hospice PGR [phone] Images from the original note were not included. Speech-Language Pathology SPEECH LANGUAGE PATHOLOGY [facility] Dysphagia Treatment Note Patient Name: Salazar Coyle Evaluation Date: 10/16/2024 Date of : 1950 Admission Date: 10/09/2024 2:27 PM Age: 74 y.o. Room/Bed: [facility] B Subjective Patient alert and cooperative. Seen [...] Select supplement: Pineapple Coconut Pete 10/11/24 0717 Oxygen: Oxygen Therapy: None (Room air) O2 [...] time. Patient has achieved all acute care MEDICARE NURSE goals. Speech therapy to sign off at [...] Expected End: 10/22/24 Resolved: 10/16/24 Therapy Time MEDICARE NURSE Individual Minutes Time In: 1120 Time Out: 1140 Minutes: 20 Marianela Vicente MEDICARE NURSE Graduate Clinician Cosigned by NADIRA Newton at 10/16/2024 3:16 PM EDT Hospitalist Progress Note 10/16/2024 [phone]: Please page me ([phone]) for patient care issues. [phone]: Please page [facility] Hospitalist for any issues. Subjective: Admit [...] PROFILE: Recent Labs 10/14/24 0632 10/15/24 0451 10/16/246 AST 16 15 15 ALT <6 <6 [...] Contact: Deidra Vang Address: [address] [place] [address] [facility] [place] Relation: Daughter Secondary Emergency Contact: Jesus Vang Mobile Relation: Spouse Preferred language: Swiss Neurosurgeon needed? No Paige Rivera DO Division of Hospitalist Medicine Inpatient Medical Services/[facility] PAGER: Epic chat [1] Past Medical History: [...] not included. Speech-Language Pathology SPEECH LANGUAGE PATHOLOGY [facility] Bedside Swallow Evaluation Patient Name: Salazar Coyle Evaluation Date: 10/15/2024 Date of : 1950 Admission Date: 10/09/2024 2:27 PM Age: 74 y.o. Room/Bed: B4-462/B4-462 B IMPRESSION: S/s oropharyngeal dysphagia. Intermittent overt [...] mastication). Pt would benefit from skilled acute MEDICARE NURSE services to ensure patient tolerance of the [...] Retrospective chart review revealed a history of MEDICARE NURSE services as follows: 08/2023 Bedside evaluation with [...] Carbohydrate restriction: 5 carb choices (75 gm/meal) 10/14/24173610/11/24 0717 Supplement:Breakfast, Dinner; Pineapple Coconut Pete Until discontinued Question Answer Comment Frequency Breakfast Frequency Dinner Select supplement: Pineapple Coconut Pete 10/11/24716 Tube Feeding: no Tracheostomy: no Recent Chest [...] List Diagnosis Date Noted Edema 04/11/2021 Sepsis ([facility]) 10/09/2024 Renal calculus, left 01/03/2024 Acute cystitis without hematuria 11/25/2023 Left ureteral calculus 11/25/2023 Altered mental status, unspecified altered mental status type 11/23/2023 Severe sepsis ([facility]) 07/30/2023 Radicular pain in right arm 01/08/2023 Ureteropelvic junction calculus 08/07/2022 WHITLEY (acute kidney injury) ([facility]) 08/07/2022 Chronic venous stasis 08/07/2022 Inflammatory reaction due to indwelling ureteral stent, initial encounter ([facility]) 08/02/2022 Septic shock ([facility]) 06/09/2022 Kidney calculi 11/22/2023 Hypertension 04/15/2021 Hyperlipemia 04/15/2021 Cognitive decline 04/15/2021 Morbid obesity with BMI of 60.0-69.9, adult ([facility]) 04/15/2021 Chronic indwelling Jose catheter 04/15/2021 Foot ulcer ([facility]) 04/13/2021 Wounds, multiple 04/11/2021 PAF (paroxysmal atrial fibrillation) ([facility]) 04/11/2021 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 ([facility]) 04/11/2021 Hyperglycemia 04/11/2021 CKD (chronic kidney disease) 04/11/2021 Asymptomatic bacteriuria 04/11/2021 Anemia 04/11/2021 Bladder spasm 03/08/2021 Type 2 diabetes mellitus with hyperglycemia ([facility]) 03/08/2021 Degenerative disc disease, cervical 03/08/2021 Chronic [...] Start: 10/15/24 Expected End: 10/22/24 Therapy Time MEDICARE NURSE Individual Minutes Time In: 1352 Time Out: [...] ureteroscopic laser lithotripsy. Mili Spiritual Care Note [facility] Palliative Care Patient Name:Salazar Coyle Chief [...] nurse. Rocio Ravi 10/15/24 Hospitalist Progress Note 10/15/2024 [phone]: Please page me ([phone]) for patient care issues. [phone]: Please page [facility] Hospitalist for any issues. Subjective: Admit [...] History: Medical History[1] LABS: CBC: Recent Labs 10/13/24 0622 10/14/24 0632 10/15/24 0451 WBC 4.4 4.6 4.8 RBC 3.35* 3.41* 3.33* HGB 10.5* 10.6* 10.3* HCT 32.8* 33.7* 32.9* MCV 97.9 98.8 98.8 RDW 14.5 14.3 14.4 PLT 152 154 179 BMP: Recent Labs 10/13/2462110/14/2463110/15/241 NA 142 144 143 K 3.9 4.0 3.9 CL 107 109* 108* CO2 26 26 27 BUN 32* 32* 31* CREATININE 0.82 0.78 0.81 GLUCOSE 299* 171* 245* CALCIUM 8.0* 8.1* 8.1* ANIONGAP 9 9 8 LIVER PROFILE: Recent Labs 10/13/2462110/14/2463110/15/24450 AST 18 16 15 ALT 7 <6 [...] Contact: Deidra Vang Address: [address] [place] [address] [facility] Mobile Relation: Daughter Secondary Emergency Contact: Jesus Vang Mobile Relation: Spouse Preferred language: [place] Neurosurgeon needed? No Paige Rivera DO Division of Hospitalist Medicine Inpatient Medical Services/[facility]: Epic chat [1] Past Medical History: [...] On: Kcal/kg Weight Used for Energy Requirements: [place] Weight for Energy Calculation (kg): 57 kg Total Energy Requirements (kcals/day): 4503-8160 kcals (25-30 kcals/kg) Weight Used for Protein Requirements: [place] Weight in Kg Used for Protein Requirements: [...] bed scale) % Weight Change (Calculated): -0.3 [place] Body Weight (lbs) (Calculated): 125 lbs [place] Body Weight (Kg) (Calculated): 57 kg % [place] Body Weight (Calculated): 272.8 % BMI (kg/m2) [...] soon to determine Susan Mclean RD Contact: *[phone] or via Secure Chat [1] apixaban, 5 [...] IntraCATHeter, q8h [2] Hospitalist Progress Note 10/14/2024 [phone]: Please page nv ([phone]) for patient care issues. [phone]: Please page [facility] Hospitalist for any issues. Subjective: Admit [...] History: Medical History[1] LABS: CBC: Recent Labs 10/12/24 0457 10/13/24 0622 10/14/24 0632 WBC 4.2 4.4 4.6 RBC 3.36* 3.35* 3.41* HGB 10.6* 10.5* 10.6* HCT 33.0* 32.8* 33.7* MCV 98.2 97.9 98.8 RDW 14.6 14.5 14.3 PLT 163 152 154 BMP: Recent Labs 10/12/24 0457 10/13/24 0622 10/14/24 0632 NA 141 142 144 K 4.0 3.9 4.0 CL 106 107 109* CO2 25 26 26 BUN 33* 32* 32* CREATININE 0.93 0.82 0.78 GLUCOSE 254* 299* 171* CALCIUM 8.0* 8.0* 8.1* ANIONGAP 10 9 9 LIVER PROFILE: Recent Labs 10/12/247 10/13/24 0622 10/14/24 0632 AST 23 18 16 ALT 7 [...] Contact: Deidra Vang Address: [address] [place] [address] [place] Mobile Relation: Daughter Secondary Emergency Contact: Jesus Vang Mobile Relation: Spouse Preferred language: Swiss Neurosurgeon needed? No Paige Rivera DO Division of Hospitalist Medicine Inpatient Medical Services/[facility]: Epic chat [1] Past Medical History: [...] 0.82 0.78 Lab Results Component Value Date [facility] 21.7 10/14/2024 [facility] 13.7 10/10/2024 Doses, serum creatinine, and vancomycin levels interfaced automatically to yoonew and data has been analyzed and interpreted. [...] DATE: 10/14/24 TIME: 9:49 AM Darrick Huggins [facility] Clinical Pharmacist Available via Secure Chat Patient [...] CNP Wound care services Hospitalist Progress Note 10/13/2024 [phone]: Please page me ([phone]) for patient care issues. [phone]: Please page [facility] night Hospitalist for any issues. Subjective: Admit Date: 10/09/2024 PCP: Paige Rivera, Room#: B2-259/B2-259 A Interval History: Patient is lying on the bed, denies any chest pain shortness of breath or palpitation, alert and oriented x 3 answering my questions appropriately. No other significant overnight issues. Adult diet Regular @[id number]@ 24HR INTAKE/OUTPUT: Intake/Output Summary (Last 24 hours) at 10/13/2024 1219 Last data filed at 10/13/2024 0500 Gross per 24 hour Intake 1253 ml Output 1140 ml Net 113 ml Past Medical History: Medical History[1] LABS: CBC: Recent Labs 10/11/24 0405 10/12/24 0457 10/13/24 0622 WBC 4.2 4.2 4.4 RBC 3.72* 3.36* 3.35* HGB 11.8 10.6* 10.5* HCT 36.6 33.0* 32.8* MCV 98.4 98.2 97.9 RDW 14.6 14.6 14.5 PLT 153 163 152 BMP: Recent Labs 10/11/24 0405 10/12/247 10/13/24 0622 NA 143 141 142 K 4.0 4.0 3.9 CL 104 106 107 CO2 24 25 26 BUN 30* 33* 32* CREATININE 1.22* 0.93 0.82 GLUCOSE 412* 254* 299* CALCIUM 8.2* 8.0* 8.0* ANIONGAP 15* 10 9 LIVER PROFILE: Recent Labs 10/11/2440410/12/2445610/13/24 0622 AST 23 23 18 ALT <6 [...] Anticoagulation Advance Directive: Full Code Discharge planning: CHICO Goetz MD Division of Hospitalist Medicine Inpatient Medical Services/[facility]: [phone] [1] Past Medical History: Diagnosis Date A-fib [...] 1,500 mg, IntraVENous, q24h Spiritual Care Note [facility] Palliative Care Patient Name:Salazar Coyle Chief Complaint: Chief Complaint Patient presents with Altered Mental Status Reason for visit: Initial Visit Services Provided To:patient Background and visit note: Introduced myself and pastoral care to patient. She was doing well. Patient shared about going to a [employer] in [place]. 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 She says, "I enjoy life. I enjoy Alexis." Will follow up. Is there spiritual distress? NO Comment: Interventions: spiritual support provided, empathetic listening, partnership building, and promotion of health. Care Plan: connect to self, spiritual reflection, and connect to higher power. Follow Up: PRN and when patient is able. Debriefed: with plasma center nurse team. Rocio Ravi 10/13/24 Images from the original note were not included. [facility] Pulmonary Medicine [address] [place] [id number] Patient - Salazar Coyle, Age - 74 y.o. - 1950 Room Number - B2-259/B2-259 A Consulting - Godwin Goetz MD Primary Care Physician - Paige Rivera [id number] Date of Admission - 10/09/2024 2:27 PM Hospital Day - 4 Chief Complaint: lucian Coyle is a 74 y.o. female who [...] from last 7 days Lab Units 10/13/24 06 WBC AUTO 10*3/uL 4.4 HEMOGLOBIN g/dL 10.5* HEMATOCRIT % 32.8* PLATELETS 10*3/uL 152 BMP: Results from last 7 days Lab Units 10/13/24 0610/12/24 0457 10/11/24 0405 SODIUM mmol/L 142 141 [...] from last 7 days Lab Units 10/13/24 0610/12/247 10/11/24 0405 ALK PHOS U/L 61 61 [...] Garcia MD Pulmonary & Critical Care Medicine [facility] [1] apixaban, 5 mg, Oral, BID chlorhexidine, [...] 0.93 0.82 Lab Results Component Value Date THEE 5.9 (L) 06/10/2022 CARLA 13.7 10/10/2024 Doses, serum creatinine, and vancomycin levels interfaced automatically to yoonew and data has been analyzed and interpreted. [...] DATE: 10/13/24 TIME: 7:49 AM Darrick Huggins [facility] Clinical Pharmacist Available via Secure Chat [facility] Respiratory Care Department Progress Note Comment [...] this patient, Pt refused Hospitalist Progress Note 10/12/2024 [phone]: Please page me ([phone]) for patient care issues. [phone]: Please page [facility] night Hospitalist for any issues. Subjective: Admit Date: 10/09/2024 PCP: Paige Rivera, DO Room#: B2-259/B2-259 A Interval History: Patient is lying on the bed, alert and oriented x 3 answering my questions appropriately Denies any pain. No other significant overnight issues. Adult diet Regular @[id number]@ 24HR INTAKE/OUTPUT: Intake/Output Summary (Last 24 hours) [...] transition to oral antibiotics Possible discharge to group home facility next 2 to 3 days. -am labs, replace lytes prn -increase activity -DVT prophylaxis: [] Lovenox [] Heparin [] SCDs [x] Encourage ambulation [] Already on Anticoagulation Advance Directive: Full Code Discharge planning: TBD Godwin Goetz MD Division of Hospitalist Medicine Inpatient Medical Services/[facility]: [phone] [1] Past Medical History: Diagnosis Date A-fib [...] IntraCATHeter, q8h vancomycin, 1,250 mg, IntraVENous, q24h [facility] Respiratory Care Department Progress Note Comment [...] (10/11/24821) Resp 15 (10/11/24821) SpO2 100 % (07/12/25 0822) Weight (!) 155 kg (341 lb 0.8 oz) (10/10/24 1000) BMI Body mass index is 56.75 kg/m . I/O: 10/10 699 - 10/11 0559 In: 4432.8 [P.O.:1910; I.V.:2072.2] Out: 1125 [Urine:1125] [...] Wound Location Orientation: Left Wound Description (Comments): [place], Red Wound/Incision 10/09/24 Forearm Right;Dorsal (Active) Date [...] Normal [] Scar/Lesion/Mass Inspection of teeth/lips/gums Dentition: []Three Affiliated Teeth []Dentures Lips/Gums: []Intact []Lesion Present Mucosa: [][place] []Moist []Dry Neck: External Appearance Overall Appearance: [...] 14.7 14.6 ABGs: Recent Labs 10/09/24 1524 [id number] Nasal Cannula (LPM) Lactic Acid: Recent Labs [...] time. Palliative eval appreciated for ongoing discussion. retirement prognosis guarded Hx of recurrent uti and septic shock with prior intubation GI Prophylaxis: Pantoprazole IV DVT Prophylaxis: Full anticoagulation Disposition: ok for transfer to [facility] with tele with bipap at night and [...] q8h vancomycin, 1,250 mg, IntraVENous, q24h [2] [facility] Respiratory Care Department Progress Note Comment [...] understands and still declines treatment. RN and SET UP AND LAY OUT INSPECTOR notified. Thank you for involving Respiratory in [...] Right (Active) Date First Assessed/Time First Assessed: 10/09/24 2133 Present on Original Admission: Yes Location: [place] [...] Wound Location Orientation: Left Wound Description (Comments): [place], Red Wound/Incision 10/09/24 Forearm Right;Dorsal (Active) Date [...] Normal [] Scar/Lesion/Mass Inspection of teeth/lips/gums Dentition: []Three Affiliated Teeth []Dentures Lips/Gums: []Intact []Lesion Present Mucosa: [][place] []Moist []Dry Neck: External Appearance Overall Appearance: [...] BMP: Recent Labs 10/09/24 1524 10/10/24 0326 NA 144 144 K 4.2 4.1 CL [...] RDW 14.6 14.7 ABGs: Recent Labs 10/09/24 152 [id number] Nasal Cannula (LPM) Lactic Acid: Recent Labs [...] time. Palliative eval appreciated for ongoing discussion. retirement prognosis guarded Hx of recurrent uti and [...] 100 mL/hr, Last Rate: 100 mL/hr (10/10/24 6210) Nutrition Assessment Type and Reason for Visit: [...] muscle mass loss Fluid Accumulation: Mild Extremities Synthetic Gem Press Operator Strength: Not Performed Nutrition Assessment: Pt is a 74 y/o female admitted to [facility] with AMS, appearing extremely dehydrated upon presentation, expectorating thick indurated mucus in the posterior pharynx. Pt is reportedly bedbound at baseline, and has been residing at [facility] for about 6 years. Pt was placed [...] On: Kcal/kg Weight Used for Energy Requirements: [place] Weight for Energy Calculation (kg): 57 kg Total Energy Requirements (kcals/day): 8020-7825 kcals (25-30 kcals/kg) Weight Used for Protein Requirements: [place] Weight in Kg Used for Protein Requirements: [...] bed scale) % Weight Change (Calculated): -0.3 [place] Body Weight (lbs) (Calculated): 125 lbs [place] Body Weight (Kg) (Calculated): 57 kg % [place] Body Weight (Calculated): 272.8 % BMI (kg/m2) [...] soon to determine Agustin Galeano RD Contact: *[phone] or via Secure Chat Images from the original note were not included. PHYSICAL THERAPY [facility] Name/MRN: Salazar Coyle ([id number]) Date: 10/10/2024 Chart review completed. Patient is bedbound at baseline and is not appropriate for skilled PT services as she is at her baseline. Will complete current PT order at this time. Mari Shrestha PT Pharmacy to Dose Vancomycin - Progress Note Recent Labs 10/09/24 1524 10/10/24 0326 BUN 29* 28* CREATININE 1.15* 1.10 Lab Results Component Value Date VANCORANDOM 5.9 (L) 06/10/2022 VANCOTROUGH 13.7 10/10/2024 Doses, serum creatinine, and vancomycin levels interfaced automatically to yoonew and data has been analyzed and interpreted. [...] via Secure Chat documented in this encounter [facility] 10-15-2024 Note Problem: Potential f or Falls Goal: I will remain free of falls Outcome: Progressing Problem: Problem Interventions Goal: Promote nutritional intake Outcome: Progressing [facility] 10-14-2024 Hospital Discharge instructions Selvin Morris [...] Information Primary Emergency Contact: Deidra Vang Address: [address] Mobile Relation: Daughter Secondary Emergency Contact: Jesus Vang Mobile Relation: Spouse Preferred language: Swiss Neurosurgeon needed? No Past Surgical History: Past Surgical [...] Known to Doctor Izaguirre through consultation at [facility]. Long acting insulin: Insulin used for this [...] assistance Toileting Minimal assistance Feeding Total assistance Communications Editor Total assistance Med Delivery no Wound Care [...] Right (Active) Wound Image 10/09/242147 Site Assessment [place];Red;Purple 10/11/24 08 [place]-Wound Assessment Unable to assess 10/14/24 0815 Drainage Description Serosanguineous 10/11/24 0800 Odor None 10/11/24 08 Drainage Amount Small 10/11/24 08 Primary Dressing Xeroform;Foam 10/11/24 08 Dressing Status Clean, dry & intact 10/13/242049 Number of days: 4 Wound/Incision 10/09/24 Other (comment) Foot Right (Active) Wound Image 10/09/242146 Site Assessment Unable to assess 10/14/24 0815 [place]-Wound Assessment Red 10/11/24 0800 Odor None 10/11/24 08 Drainage Amount None 10/11/24 08 Primary Dressing Xeroform;ABD;Rolled gauze (Kerlix) 10/11/24 0800 Dressing Status Clean, dry & intact 10/13/242049 Number of days: 4 Wound/Incision 10/09/24 Other (comment) Leg Left (Active) Wound Image 10/09/242148 Site Assessment Unable to assess 10/14/24 0815 [place]-Wound Assessment Red 10/11/24 0800 Odor None 10/11/24 0800 Drainage Amount None 10/11/24 0800 Primary Dressing Open to air 10/13/242049 Number of days: 4 Wound/Incision 10/09/24 Other (comment) Forearm Right;Dorsal (Active) Wound Image 10/09/24 215 Site Assessment Unable to assess 10/14/24 0815 [place]-Wound Assessment Red 10/11/24 0800 Odor None 10/11/24 0800 Drainage Amount None 10/11/24 0800 Primary Dressing Adaptic;Foam 10/11/24 0800 Dressing Status Clean, dry & intact 10/13/242049 Number of days: 4 Wound/Incision 10/09/24 Other (comment) Foot Right;Posterior (Active) Wound Image 10/09/242153 Site Assessment Unable to assess 10/14/24 0815 [...] 0950 Primary Dressing Open to air 10/11/24 0800 Dressing Status Clean, dry & intact 10/12/24 [...] that are sent with patient): {JENN Patient Belongings:05233} RN SIGNATURE: MANAGEMENT/SOCIAL WORK SECTION Inpatient Status Date: 10/09/24 Discharging to Facility/ Agency Name: [facility] Address: [address] [place], [place] [address] Fax: Dialysis Facility (if applicable) Name: Address: Dialysis Schedule: Phone: Fax: Iridologist/Automatic Punch Press Operator signature: ICIAN SECTION Name: Salazar Coyle Prognosis: excellent Condition at Discharge: stable Rehab Potential (if transferring to Rehab): excellent Recommended Labs or Other Treatments After Discharge: none The individual is being admitted to a nursing facility directly from an [facility] or a unit of a [place] [facility] that is not operated by or licensed by [facility] under section 5119.14 or 5160-3-15.1 5 The individual requires the level of services provided by a nursing facility for the condition for which he or she was treated in the hospital and, Physician Certification: I certify the above information and transfer of Salazar Coyle is necessary for the continuing treatment of the diagnosis listed and that she requires group home facility for less than 30 days. Update Admission H&P: No change in H&P PHYSICIAN SIGNATURE: documented in this encounter [facility] 10-14-2024 Consult note Formatting of th is note might be different from the original. Vancomycin therapy has been discontinued by Dr Rivera on 10-14-24. Thank you for the consult. Pharmacy signing off for vancomycin dosing. 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 female living at [facility] for 24 hour care and supervision, PMHx [...] Management Advanced Directives: Health Care Power of De Icer Finisher, DNR Functional Assessment: PPS 30% bedbound; can't do any work/extensive disease; total care; reduced intake; full or drowsy or confusion Prognosis: depends upon goals of care Spiritual Assessment: No spiritual distress identified Bereavement and Grief: Grief Issues Not Identified PDMP/OARRS Reviewed: Yes-no reportable medications, resides at [facility] and on gabapentin and oxycodone at facility Social history: Marital status: Children: 2 adult child(jonathan) Living status: long-term Work history: not employed status: No [employer]aritan guido: None ROS: See palliative care ROS/ESAS below; All other systems were reviewed and are negative. [place] Symptom Assessment Score [place] Score Pain Score (if non-verbal, add .FLACC [...] hours) Date/Time Action Medication Dose Rate 10/09/24 2108 New Bag vancomycin IVPB 1500 mg in 250 mL NS (premix) 1,500 mg 125 mL/hr 10/09/24 1814 New Bag piperacillin-tazobactam (Zosyn) 4,500 mg in sodium chloride 0.9 % 100 mL IVPB Mini-Bag Plus 4,500 mg 200 mL/hr Assessment/Plan: Doses, serum creatinine, and vancomycin levels interfaced automatically to yoonew and data has been analyzed and interpreted. Start Vancomycin 1250 mg Q 24 hours based on patient age, weight, renal function, and infectious diagnosis (8.1 mg/kg). Predicted AUC = 516 mg/L*hr (goal 400-600 mg/L*hr) Will assess level on 10-10 and adjust as appropriate. Trend serum creatinine. Orders placed. Thank you for this consult. Please secure text or call with questions. DATE: 07/10/25 TIME: 9:49 PM Giovani Arreola RPh Clinical Pharmacist Available via Secure Chat documented in this encounter [facility] 10-11-2024 Note Problem: Potential f or Falls Goal: I will remain free of falls Outcome: Progressing Problem: Problem Interventions Goal: Promote nutritional intake Outcome: Progressing [facility] 10-10-2024 Note Referral placed to r tarah back to [facility] via [facility] per TCC request. Await review and response regarding ability to accept. TCC notified. [facility] 10-10-2024 Note Referral placed to [facility] via Careport per TCC request. Await review and response regarding ability to accept. TCC notified. [facility] 10-09-2024 Note [facility] 10-09-2024 Procedure note Associated Ord er(s): Central [...] documented as signed by this procedure note Biological Science Technician Fish(s): N/A No supervision required Cosigned by Cristino Bruno DO at 10/10/2024 10:02 AM EDT documented in this encounter [facility] 10-09-2024 Emergency department Note Per ICU, pt [...] topically as needed for itching. NYSTATIN (MYCOSTATIN) 252813 UNIT/GM POWDER OXYCODONE (OXY-IR) 5 MG IMMEDIATE [...] 266 (*) Narrative: Performed by: Bentley Serna, [address] [facility] [place] [address] CLIA ID: [id number] AMMONIA - Normal AMMONIA 22 NT PRO [...] minutes I Emelina Cooley PA-C am the almond huller of record. PROCEDURES: Unless otherwise noted below, [...] No Sexually Abused: No Emelina Cooley PA-C 10/09/24 1745 Cosigned by Sravan Mercedes MD at 10/09/2024 6:04 PM EDT Emergency Department Encounter [facility] ED Patient: Salazar Coyle : 1950 Date [...] discussed the patient's management with other clinicians: Tongue Carrier Dr. Harmon and radiologist as above Total [...] occasionally words are mis-transcribed.) Sravan Mercedes MD [facility] Sravan Mercedes MD 10/09/24 1718 Pt here to the ER via EMS for altered metal status that started today. Pt has hx of dementia. Pt not answering questions. Pt is moaning and tense. Pt looks at you when calling her name. Per EMS pt was started on antibiotic for UTI. documented in this encounter [facility] 10-09-2024 Note [facility] History and physical note Images from [...] topically as needed for itching. 11/29/23 Raphael Irwin, DO nystatin (Mycostatin) [id number] UNIT/GM powder 03/22/22 Historical Provider, oxyCODONE (Oxy-IR) [...] RDW 14.6 ABGs: Recent Labs 10/09/24 1524 [id number] Nasal Cannula (LPM) Lactic Acid: No results [...] meropenem August 2023 documented in this encounter [facility] 02-25-2024 History of Present illness Narrative Images from the original note were not included. Bashir Vásquez MD 02/24/2024 at 10:55 AM Telemedicine visit PATIENT NAME: Salazar Coyle DATE OF : 1950 TODAY'S DATE: 02/24/2024 CHIEF COMPLAINT The patient, Ms. Coyle is a 73 y.o. female. Their identity was verified by 1950 Those on the call: Patient, Rocio - bin operator at Facility [phone] Subjective: Ms. Coyle is a 73 y.o. female who presents for telehealth visit - post op visit-01/03/24 Cysto, left flexible Ureteroscopic laser lithotripsy, left ureteral stent removal 11/25/23 VERY difficult , left ureteral stent. Multilength. ( Body habitus, inability to bend right leg) Schedule cystoscopy, left ureteroscopic laser lithotripsy, left ureteral stent change in 2-3 weeks at [facility]. 11/24/23 CT Kidneys and ureters: Calculus is [...] normal. Judgment: Judgment normal. Past Medical History: @[facility]@ Past Surgical History: @[facility]@ Medications Prior to Admission medications Medication Sig Start Date End Date Taking? Authorizing Provider acetaminophen (Tylenol) 325 MG tablet Take 325 mg by mouth 3 times daily. Historical Provider, ammonium lactate (Lac-Hydrin) 12 % lotion Apply topically as needed for dry skin. 11/29/23 Raphael Irwin DO apixaban (Eliquis) 5 MG tablet Take 5 [...] itching. 11/29/23 Raphael Irwin DO nystatin (Mycostatin) 134601 UNIT/GM powder 03/22/22 Historical Provider, oxyCODONE (Oxy-IR) 5 MG immediate release capsule Take 1 capsule (5 mg) by mouth every 6 hours as needed for severe pain (7-10). 11/29/23 Raphael Irwin DO senna-docusate (Helena-Colace) 8.6-50 MG tablet Take 100 tablets by mouth Every 24 hours. 04/06/21 Historical Provider, Labs: No results found for: [...] ureteral stent change in 2-3 weeks at [facility] [place]. 1.5 hours. Has to be in room [...] that she will now follow up PRN) Mili 08/22/23 Blood culture negative. 07/31/23 Cysto, left stent placement.( Variable length) Kareem director call. 5:30 AM Weighs 350 lbs Mili 07/31/23 Lactate 6.8 ( -2.0) 07/31/23 CT [...] ECF ordered Discuss ion with Rocio ( bin operator) at Facility Discussed that placing Suprapubic Tube would be Very Difficult- would be na open procedure.; Not a good option. Plan ECF to cont to change jose Monthly. Follow up PRN Bashir Vásquez MD 02/24/24 10:55 AM documented in this encounter [facility] 01-03-2024 Miscellaneous Notes [facility] at the bedside to transport pt back to long-term. This RN spoke with RECREATION ATTENDANT about pt's elevated Bpx2, RECREATION ATTENDANT advised to let pt go back to long-term and resume home medications. Report called to [facility]. PreOp Dx Left renal calculi- Two, left ureteral stent PostOp Dx Same Operation Cystoscopy, flouroscopy, left ureteral stent removal, left flexible ureteroscopic laser lithotripsy Surgeon Bashir Vásquez MD Assist Aubrie Ramos MD EBL Minimal Drains none Jose Specimen Condition To PACU This is a 73 y.o. morbidly obese patient who resides at an [facility] presents with a left ureteral stent and [...] morning, anesthesia notified. documented in this encounter [facility] 01-03-2024 Note Formatting of this n ote might be different from the original. [facility] at the bedside to transport pt back to long-term. This RN spoke with RECREATION ATTENDANT about pt's elevated Bpx2, RECREATION ATTENDANT advised to let pt go back to long-term and resume home medications. [facility] 01-03-2024 Note Formatting of this n ote might be different from the original. [facility] at the bedside to transport pt back to long-term. This RN spoke with RECREATION ATTENDANT about pt's elevated Bpx2, RECREATION ATTENDANT advised to let pt go back to long-term and resume home medications. [facility] 01-03-2024 Note Formatting of this n ote might be different from the original. Report called to [facility]. [facility] 01-03-2024 Note Formatting of this n ote might be different from the original. Report called to [facility]. [facility] 01-03-2024 Note Formatting of this n ote [...] jose placed and patient awoken from anesthesia. [facility] 01-03-2024 Note Formatting of this n ote [...] jose placed and patient awoken from anesthesia. [facility] 01-03-2024 Hospital Discharge instructions Aubrie Ramos MD [...] done either at your pre-operative day at [facility], [facility], or with your regular doctor. - Some [...] please call . documented in this encounter [facility] 01-03-2024 Telephone encounter Note Message seen after Pt was already at Hospital for surgery. [facility] 01-03-2024 Miscellaneous Notes Message seen after Pt was already at Hospital for surgery. Name of caller: Rocio BlayneAllison Maria) Contact phone number: [phone] Relationship to Patient: na Provider: Dr. Vásquez [...] their call: No documented in this encounter [facility] 01-03-2024 Note Formatting of this n ote might be different from the original. Lunch relief at 1030 [facility] 01-03-2024 Note Formatting of this n ote might be different from the original. Block team paged for patient IV access [facility] 01-03-2024 Note Formatting of this n ote might be different from the original. Lunch relief at 1030 [facility] 01-03-2024 Note Formatting of this n ote might be different from the original. Block team paged for patient IV access [facility] 01-03-2024 Note Formatting of this n ote might be different from the original. Patient BS 337 this morning, anesthesia notified. [facility] 01-03-2024 Note Formatting of this n ote might be different from the original. Patient BS 337 this morning, anesthesia notified. [facility] 01-02-2024 Telephone encounter Note Name of caller: Rocio ([facility]) Contact phone number: [phone] Relationship to Patient: na Provider: Dr. Vásquez [...] business hours to return their call: No [facility] 11-30-2023 Telephone encounter Note Spoke with Adiel @ [facility] information given and understood. If trouble with transportation Adiel will call the office [facility] 11-30-2023 Miscellaneous Notes Spoke with Adiel @ [facility] information given and understood. If trouble with transportation Adiel will call the office 11/25/23 VERY difficult , left ureteral stent. Multilength. ( Body habitus, inability to bend right leg) Schedule cystoscopy, left ureteroscopic laser lithotripsy, left ureteral stent change in 2-3 weeks at [facility] [place]. 1.5 hours. Has to be in room 14. Urine culture one week prior ( Order in) Mili documented in this encounter [facility] 11-29-2023 Nurse Note Nurse discharge report called to Vickie at [facility], reviewed discharge orders, and answered questions. "Jh" from transport called and told nurse that their bariatric box truck just broke down and now patient's sheepskin pickler time will be around 6:00 pm-7:00 pm. The truck will be coming from [place]. Patient refused vitals this morning. Patient kept [...] Charge nurse discussed with pt and called pipeline maintenance supervisor. Urgent Care Physician Assistant to unit to talk with pt. Pt environment safe. Care ongoing. diploma dental assistant attempted to check pt POCT. Pt [...] not want her mother to return to [facility] and wants help from our TCC/Social work [...] denies seeing tele box. RN spoke with pipeline maintenance supervisor Mari who instructed RN to call biomedical [...] to obtain Blood cultures. All attempts unsuccessful. GRID TRIMMER paged to assist with obtaining labs. Per [...] to time for scheduled insulin. Arrived to [facility] via Bariatric bed and 4 medics. Awake, A&Ox2. Pt yells out when moved. Multiple areas of red,dry flaky skin noted. Incontinent of stool. Pt cleansed and repositioned. Dry go placed in abdominal and groin folds. Call light in reach. documented in this encounter [facility] 11-29-2023 Miscellaneous Notes Discharge med list and MAR transmitted to [facility] via [facility] per TCC request. Discharge orders placed JENN completed Tasked to set up transport for pt to return to [facility]; Transport set for 4pm. Tasked [facility] to send discharge orders and OPAT to [facility]. [facility] task to [facility] to send OPAT and Discharge orders to [facility]. [facility] to [facility] re Discharge. Good for discharge. Nurse to nurse # is [phone]. Ask for [facility]. Spoke with Attending MD, he is [...] for report Nurse to nurse # is [phone]. Ask for [facility]. TCC will follow through discharge. TCC requested adoption social worker arrange transportation for pt. tunnel worker arranged transportation for 4pm. tunnel worker informed daughter , Deidra, transportation is scheduled for 4pm. Deidra stated her mother is asking to stay one more day for her IV antibiotics. tunnel worker informed Deidra I will consult with the team and get back to her. tunnel worker informed treatment team of Deidra's concerns, the doctor stated pt is ready for discharge, and nurse stated patient will complete her antibiotics at the facility until 12/07/23. tunnel worker contacted Deidra back, and reported Salazar will continue her antibiotics until 12/07/23 at the facility. Deidra was agreeable. tunnel worker notified RN, TCC, Facility and community arts centre manager of discharge time. . OPAT, MAR and updated notes placed to [facility] per [facility] request. Await review and response [...] PICC line placed 11/27. Plan return to [facility], bed hold and no auth required. SW assist with transport. SW and TCC to continue to follow. Discharge Milestones and Delays Expected date/time: 11/30/2023 Expected discharge disposition: Jail/Residential Care Discharge Milestones Place discharge order Complete med reconciliation Case mgmt discharge readiness Clinical Stability Diagnostic Workup Tongue Carrier Recommendations Facility Choice Selection Imaging Results Patient [...] ID per medical team. DCP return to [facility], bed hold and no auth required. TCC [...] 1950 Patient Information Source of Information: Patient Senior Tax Accountant Name/Contact Information: haven Lee Cognition/Language: Confused at baseline Permission given to speak with patient claim representative/caregiver as indicated: Confirmation of Payer with patient/family: Yes Payer Name: Bk Medicare Adv and Medicaid Home: No Confirmation of Primary Care Physician: Confirmed PCP Name: Jas Rivera Seen in last 2 years?: Yes Primary Caregiver: (staff) If assistance needed, confirmed caregiver ready, willing and able to care for patient at discharge: Confirmed with: Deidra, daughter and Jesus, spouse Living Arrangements Current Residence: Number of Floors Number of Entry Steps: Bed/Bath Levels: Facility: Jail/Residental Care Facility Name: [facility] Plan to Return: Yes Lives with: (facility) [...] Plan Patient expects to be discharged to: [facility] Discharge Planning Actions: Continue to follow [...] Rx coverage and PCP. Patient lives at [facility]. Patient is bed bound, only able to move L hand. Per spouse patient to return to [facility]. [facility] tasked to make referral to [facility]. TCC to assist and follow as needed. Deanne Coronado RN Referral placed to [facility] via [facility] per TCC request. Await review and response regarding ability to accept. TCC notified. Problem: Pain - Adult Goal: Verbalizes/displays adequate comfort level or baseline comfort level Outcome: Progressing The patient is Moderately Unstable - Medium risk of patient condition declining or worsening Problem: Knowledge Deficit Goal: Patient/family/caregiver demonstrates understanding of disease process, treatment plan, medications, and discharge instructions 11/25/20231755 by Britney Longoria RN Outcome: Not Progressing 11/25/20231755 by Britney Lognoria RN Outcome: Not Progressing Problem: Potential for Compromised [...] no complaints, denies pain. Contacted Mari nurse pipeline maintenance supervisor about tele box missing. Will hold pt in pacu until resolved. Pt remains comfortable and pleasant, no issues. Pt waking up pleasantly, no complaints, VSS. This RN had placed her tele box for 5W on pt's bedside table, and when RECREATION ATTENDANT brought patient, tele box was gone. RN [...] Outcome: Not Progressing documented in this encounter [facility] 11-29-2023 Hospital course Narrative Images from the original note were not included. Hospitalist Discharge Summary Salazar Coyle : 1950 Admit date: 11/22/2023 Discharge date: 11/29/2023 Admitting Physician: Nilo Ivan MD Primary Care Physician: Paige Rivera DO [...] new non-acute diagnoses: Atrial fibrillation on Eliquis M2XR-H5x 9.4 Prolonged Qtc Neurogenic bladder s/p Chronic [...] the hospital with confusion and lethargy at [facility]. Initial ED workup noted normal renal function, [...] discharge. Plan for patient to return to [facility] at discharge. See discharge diagnoses list above [...] 4.9 3.8 CL 108* 108* 108* CO2 22 23 27 BUN 23* 20* 20* CREATININE 0.70 [...] in the evening. Inject with meals. nystatin 499554 UNIT/GM powder Commonly known as: Mycostatin Oyster [...] g packet Recommended Follow-up: Paige Rivera DO [address] [facility] [address] Follow up in 1 week(s) Complexity of Follow up: [] Moderate Complexity: follow up within 7-14 calendar days (24000) [x] Severe Complexity: follow up within 7 calendar days (43601) Follow up Testing, Pending results or Referrals [...] frame. Signed: Raphael Irwin DO Division of Hospitalrust Medicine Inpatient Medical Services[facility] 11/29/2023, 2:45 PM documented in this encounter [facility] 11-29-2023 Hospital Discharge instructions Raphael Irwin DO [...] Contact: Deidra Vang Address: [address] [place] [address] [place] Relation: Daughter Secondary Emergency Contact: Jesus Vang Mobile Relation: Spouse Preferred language: [place] Neurosurgeon needed? No Past Surgical History: Past Surgical [...] Known to Doctor Izaguirre through consultation at [facility]. 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 ([facility]) Recurrent UTI Cerebrovascular accident ([facility]) Hyperglycemia Chronic indwelling Jose catheter Overview Signed [...] assistance Toileting Total assistance Feeding Total assistance Communications Editor Total assistance Med Delivery no Wound Care [...] Date: 11/23/2023 Discharging to Facility/ Agency Name: [facility] Address: [address] [place], [place] [id number] [phone] Fax: Dialysis Facility (if applicable) Name: Address: Dialysis Schedule: Phone: Fax: Iridologist/Automatic Punch Press Operator signature: ICIAN SECTION Name: Salazar Coyle Prognosis: excellent Condition at Discharge: stable Rehab Potential (if transferring to Rehab): excellent Recommended Labs or Other Treatments After Discharge: CBC and BMP in 3 days The individual is being admitted to a nursing facility directly from an [facility] or a unit of a [place] [facility] that is not operated by or licensed by [facility] under section 5119.14 or 5160-3-15.1 5 The individual requires the level of services provided by a nursing facility for the condition for which he or she was treated in the hospital and, Physician Certification: I certify the above information and transfer of Salazar Coyle is necessary for the continuing treatment of the diagnosis listed and that she requires group home facility for greater than 30 days. Update Admission H&P: No change in H&P PHYSICIAN SIGNATURE: documented in this encounter [facility] 11-29-2023 History of Present illness Narrative Patient chart is reviewed. Currently rounding. Full note to follow. Vancomycin therapy has been discontinued by Gerald Campbell on 11/29/23. Thank you for the consult. Pharmacy signing off for vancomycin dosing. Milagros Reveles [facility], PharmD Date: 11/29/23 Time: 12:04 PM Images from the original note were not included. [facility] - Infectious Diseases Advanced Practice Provider [...] "COVID19" in the last 72 hours. 11/23 2/ blood cx NGTD 11/21 COVID/RSV/Flu negative 11/21 1/2 blood cx s hominis, s epi 11/21 [...] cystoscopy and L ureteral stent placement 11/25/23. /2 Blood Cx + s hominis - collected [...] L pyelonephritis/complication UTI through 12/07/23. Noted of /2 blood cx + s hominis. Both of these blood cultures were collected at the same time from pt's L arm, thus this is functionally 1/ blood cx + CONS. Repeat blood cx [...] creatinine, and vancomycin levels interfaced automatically to yoonew and data has been analyzed and interpreted. [...] DATE: 11/29/23 TIME: 8:49 AM Milagros Reveles RP Clinical Pharmacist Available via Secure Chat Images from the original note were not included. [facility] - Infectious Diseases Advanced Practice Provider [...] (97.5 F) Temporal 66 18 95 % 11/27/239 141/61 (!) 35.3 C (95.6 F) Temporal [...] "COVID19" in the last 72 hours. 11/23 2/ blood cx NGTD 11/21 COVID/RSV/Flu negative 11/21 2/ blood cx 2 S hominis 11/21 urine cx >100k E coli, >100k Providencia 08/21 blood cx NG 08/01 2 blood cx NG 07/31 MRSA PCR negative 07/31 resp cx NG 07/31 pna pcr + coronavirus, rhinovirus 07/29 urine cx normal urogenital gaby 50-90K esbl e coli 07/29 04/03 blood cx ESBL e coli 01/08/23 2 blood cx NG 01/08/23 urine cx multiple species present 08/04/22 urine cx NG 06/14 1 blood cx CONS 06/11 04/03 blood cx + ESBL e coli 06/10 urine bladder cx anaerobic GPB, skin gaby, ESBL e coli, p mirabilis 06/09 blood cx + ESBL e coli, p mirabilis , 2 +CONS Lines: Chronic jose PIV Radiography/Echo/Other: 11/22 [...] vancomycin pending further ID of GPC on 04/03 blood cx. Spoke with micro, still pending [...] Date: 11/22/2023 PCP: Paige Rivera DO Room#: [id number] A BRIEF HOSPITAL COURSE: Salazar is a [...] the hospital with confusion and lethargy at [facility]. Initial ED workup noted normal renal function, [...] discharge. Plan for patient to return to [facility] at discharge. Interval History: Patient seen today. [...] new non-acute diagnoses: Atrial fibrillation on Eliquis G3QA-Z0z 9.4 Prolonged Qtc Neurogenic bladder s/p Chronic [...] - Date - 11/28 - Location - [facility] (Non-Skilled) - Pending the following - PICC placement, final ABX plan Total time spent (which include face to face and non face to face encounters) : 35 minutes Extended Emergency Contact Information Primary Emergency Contact: Deidra Vang Address: [address] [place], [place] [id number] [place] [address] Mobile Relation: Daughter Secondary Emergency Contact: Jesus Vang Mobile Relation: Spouse Preferred language: [place] Neurosurgeon needed? No ZINA Calderon CNP Division of Hospitalist Medicine [facility] Pharmacy to Dose Vancomycin - Progress Note Lab Results Component Value Date CREATININE 0.61 11/28/2023 BUN 20 (H) 11/28/2023 WBC 4.2 11/27/2023 VANCORANDOM 5.9 (L) 06/10/2022 VANCOTROUGH 17.7 11/26/2023 Doses, serum creatinine, and vancomycin levels interfaced automatically to yoonew and data has been analyzed and interpreted. [...] from the original note were not included. [facility] Wound Care Progress Note Salazar Coyle AGE: [...] with meals. 10 mL 2 nystatin (Mycostatin) 024074 UNIT/GM powder oxyCODONE (Oxy-IR) 5 MG immediate [...] Edema present. Stable Photo: 11/26/23 Left breast: [place] rash noted to area. No openings. No [...] Hibiclens, apply Lac-hydrin then leave LINDSEY daily Left breast: Fungal dermatitis - Clean with soap and water, dry well, Miconazole powder BID and PRN Bilateral buttocks: MASD (bodily fluids) -Clean with soap and water, apply ET mix then leave FORGING DIES FINAL FINISHER TID and PRN Abdomen folds, bilateral knee folds: Fungal dermatitis - Clean with soap and water, dry well, Miconazole powder BID and PRN TCB bed Reposition q2hrs Incontinent checks q2hrs Nutritional support Wound Care to follow Recommend to follow up at [facility] wound care center after hospital discharge. [...] Date: 11/22/2023 PCP: Paige Rivera DO Room#: [phone] A BRIEF HOSPITAL COURSE: Salazar is a [...] the hospital with confusion and lethargy at [facility]. Initial ED workup noted normal renal function, [...] new non-acute diagnoses: Atrial fibrillation on Eliquis C7HX-C2m 9.4 Prolonged Qtc Neurogenic bladder s/p Chronic [...] Vancomycin until BC resulted given GPC on 04/03 initial BC - May need PICC line [...] or occurred (HIGH). Advance Directive: DNR-CCA *Updated daughter Deidra over phone Anticipated Discharge - Date - 1-3 days - Location - [facility] (Non-Skilled) - Pending the following - ID clearance Total time spent (which include face to face and non face to face encounters) : 45 minutes Extended Emergency Contact Information Primary Emergency Contact: Quinton Vangll Address: [address] [place] [address] [facility] of [place] Relation: Daughter Secondary Emergency Contact: Jesus Vang Mobile Relation: Spouse Preferred language: [place] Neurosurgeon needed? No Mari Garg APRN - DIRECTOR PROFESSIONAL SERVICES Division of Hospitalist Medicine [place] [employer] signed by ZINA Sutton CNP at 11/27/2023 12:01 PM EDT Images from the original note were not included. [facility] - Infectious Diseases Advanced Practice Provider [...] "COVID19" in the last 72 hours. 11/23 2/ blood cx NGTD 11/21 COVID/RSV/Flu negative 11/21 2/2 blood cx 05/04 S hominis 11/21 urine [...] ID of GPC on 12 blood cx. Follow repeat blood cx Stent [...] from the original note were not included. [facility] Wound Care Progress Note Salazar Coyle AGE: [...] with meals. 10 mL 2 nystatin (Mycostatin) 266284 UNIT/GM powder oxyCODONE (Oxy-IR) 5 MG immediate [...] Edema present. Stable Photo: 11/26/23 Left breast: [place] rash noted to area. No openings. No [...] Hibiclens, apply Lac-hydrin then leave LINDSEY daily Left breast: Fungal dermatitis - Clean with soap and water, dry well, Miconazole powder BID and PRN Bilateral buttocks: MASD (bodily fluids) -Clean with soap and water, apply ET mix then leave FORGING DIES FINAL FINISHER TID and PRN Abdomen folds, bilateral knee folds: Fungal dermatitis - Clean with soap and water, dry well, Miconazole powder BID and PRN TCB bed Reposition q2hrs Incontinent checks q2hrs Nutritional support Wound Care to follow Recommend to follow up at [facility] Outpatient wound care center after hospital discharge. [...] creatinine, and vancomycin levels interfaced automatically to yoonew and data has been analyzed and interpreted. [...] PharmD Clinical Pharmacist Available via Secure Chat [facility] Respiratory Care Department Progress Note Comment [...] creatinine, and vancomycin levels interfaced automatically to yoonew and data has been analyzed and interpreted. [...] Type and Reason for Visit: Initial (diet behavioral health technician referral- uncontrolled diabetes) Nutrition Recommendations/Plan: Current [...] loss Fluid Accumulation: Moderate to Severe Extremities Synthetic Gem Press Operator Strength: Not Performed Nutrition Assessment: PMH includes: [...] resumed room service assist. Per paperwork from [facility]- diet order: no added salt, low concentrated [...] On: Kcal/kg Weight Used for Energy Requirements: [place] Weight for Energy Calculation (kg): 57 kg Total Energy Requirements (kcals/day): 0860-0839 kcals per day (25-28) Weight Used for Protein Requirements: [place] Weight in Kg Used for Protein Requirements: [...] 181 kg (400 lb) (estimated on 11/22/23) [place] Body Weight (lbs) (Calculated): 125 lbs [place] Body Weight (Kg) (Calculated): 57 kg % [place] Body Weight (Calculated): 273.6 % BMI (kg/m2) [...] soon to determine Yesenia Dave RD Contact: *[phone] Hospitalist Progress Note 11/26/2023 12:01 PM Subjective: Admit Date: 11/22/2023 PCP: Paige Rivera DO Velasquez is a 73 y.o. female with past [...] complaints No sob Adult diet Regular @IODETAILS@ @[email or web address]@ Medications: [START ON 11/27/2023] ammonium lactate, , [...] coli >100,000 CFU/mL Providencia stuartii Cont supportive group home meds otherwise PT/OT Some pancytopenia --? Sepsis related-- will follow Increase insulin dosing Anticipated Discharge - Date - 11/27 - Location - Skilled Facility - Pending the following - course Total time spent (which include face to face and non face to face encounters) : 31 minutes See orders, continue POC Advance Directive: DNR-CCA Nilo Ivan MD, [facility] Hospitalist Images from the original note were not included. [facility] - Infectious Diseases Advanced Practice Provider [...] "COVID19" in the last 72 hours. 11/23 2/2 blood cx NGTD 11/21 COVID/RSV/Flu negative 11/21 2/2 blood cx 2 S hominis 11/21 urine cx >100k E coli, >100k Providencia 08/21 blood cx NG 08/01 2 blood cx NG 07/31 MRSA PCR negative [...] be of moderate complexity. FLOR Denson PA-C ADDENDUM: Spoke with micro lab. / blood cx from 11/21 still with unidentified GPC. Until further identification, [...] Imaging Studies: POCT glucose meter [facility]formed by: [facility], [address] [place] [id number] CLIA ID: [id number] POCT glucose meter [facility]formed by: [facility], [address] [place] [id number] CLIA ID: [id number] POCT glucose meter Performed by: [facility], [address] [place] [address] CLIA ID: [id number] IN GUIDANCE OR USE ONLY - NON RESULTABLE There is no interpretation needed for this exam. POCT glucose meter Performed by: [facility], [address] [place] [id number] CLIA ID: [id number] Assessment and Plan ASSESSMENT: 73 y.o. female [...] s findings and plan. Darrick Gan MD [facility] Respiratory Care Department Progress Note Comment [...] No new sob Adult diet Regular @IODETAILS@ @[email or web address]@ Medications: sodium chloride, 100 mL/hr, Last Rate: [...] vancomycin, 1,500 mg, IntraVENous, q18h Recent Labs 11/23/23 0444 11/24/23 0021 11/25/23 0532 WBC 7.4 5.0 [...] now in case of procedure Cont supportive group home meds otherwise PT/OT Some pancytopenia --? Sepsis related-- will follow Increase insulin dosing Anticipated Discharge - Date - 11/26 - Location - Skilled Facility - Pending the following - course Total time spent (which include face to face and non face to face encounters) : 32 minutes See orders, continue POC Advance Directive: DNR-CCA Nilo Ivan MD, [facility] Hospital[facility] Pharmacy to Dose Vancomycin - Progress Note Lab Results Component Value Date CREATININE 0.80 11/25/2023 BUN 22 (H) 11/25/2023 WBC 3.4 (L) 11/25/2023 VANCORANDOM 5.9 (L) 06/10/2022 VANCOTROUGH 5.7 (L) 11/24/2023 Doses, serum creatinine, and vancomycin levels interfaced automatically to yoonew and data has been analyzed and interpreted. [...] Imaging Studies: POCT glucose meter Performed by: [facility], [address] [place] [address] CLIA ID: [id number] Assessment and Plan ASSESSMENT: 73 y.o. female [...] infection, failure of treatment,need for additional procedures, [place], stroke, embolus, DVT and . Patient understands. Informed consent obtained. Images from the original note were not included. [facility] - Infectious Diseases Advanced Practice Provider [...] normal. Behavior: Behavior normal. Labs: Recent Labs 11/22/23 2134 11/23/23 0444 11/24/23 0021 NA 137 137 137 K 4.5 3.9 4.1 CL 103 107 107 CO2 29 26 27 BUN 28* 24* 25* CREATININE 0.91 0.79 0.81 GLUCOSE 350* 327* 319* CALCIUM 8.7 8.1* 7.9* PROT 6.9 5.8* 5.4* BILITOT 0.8 0.4 0.5 ALKPHOS 82 78 68 AST 36 21 22 ALT 16 15 15 Recent Labs 11/22/23 2134 11/23/23 0051 11/23/23 0444 11/24/23 0021 WBC 7.4 -- 7.4 5.0 HGB 11.7 13.3 10.3* 10.1* HCT 37.0 -- 33.2* 33.0* PLT 138* -- 146 126* LYMPHOPCT 17.3 -- -- -- MONOPCT 6.9 -- -- -- BASOPCT 0.3 -- -- -- NEUTROABS 5.4 -- -- -- Micro: No results for input(s): "COVID19" in the last 72 hours. 11/21 COVID/RSV/Flu negative 11/21 2 blood cx 05/04 S hominis 11/21 urine [...] E coli and Providencia L UPJ calculi 2/2 Blood Cx CoNS Presence of chronic jose [...] be of moderate complexity. Kaitlynn RAY PA-C [facility] Infectious Disease Nutrition rescreen completed. Patient referred to the Dietitian due to DM uncontrolled (HgA1c = 9.4). DIANE Pearson Hospitalist Progress Note 11/24/2023 11:23 AM [...] Regular; 5 carb choices (75 gm/meal) @IODETAILS@ @[email or web address]@ Medications: [START ON 11/25/2023] sodium chloride, 100 [...] vancomycin, 1,500 mg, IntraVENous, q18h Recent Labs 11/22/23213311/23/23 0051 11/23/23 0444 11/24/23 0021 WBC 7.4 -- 7.4 5.0 HGB 11.7 13.3 10.3* 10.1* PLT 138* -- 146 126* Recent Labs 11/22/23213311/23/23 0444 11/24/23 0021 NA 137 137 137 K [...] in the last 72 hours. Recent Labs 11/22/23213311/23/23 0051 11/23/234 TROPONINI <0.012 0.012 0.012 Objective: Vitals: BP [...] now in case of procedure Cont supportive group home meds otherwise Anticipated Discharge - Date - 11/25 - Location - Skilled Facility - Pending the following - course Total time spent (which include face to face and non face to face encounters) : 36 minutes See orders, continue POC Advance Directive: DNR-CCA Nilo Ivan MD, [facility] Hospitalist Pharmacy to Dose Vancomycin - Progress Note Lab Results Component Value Date CREATININE 0.81 11/24/2023 BUN 25 (H) 11/24/2023 WBC 5.0 11/24/2023 VANCORANDOM 5.9 (L) 06/10/2022 VANCOTROUGH 5.7 (L) 11/24/2023 Doses, serum creatinine, and vancomycin levels interfaced automatically to yoonew and data has been analyzed and interpreted. [...] creatinine, and vancomycin levels interfaced automatically to yoonew and data has been analyzed and interpreted. [...] via Secure Chat documented in this encounter [facility] 11-28-2023 Procedure note Associated Ord er(s): PICC [...] lumen Catheter size: 5 Fr Lot #: [id number] Trimmed at (cm): 41 Inserted at (cm): 41 Ultrasound guidance: Yes Post-procedure: Post-procedure: Antimicrobial dressing applied and securement device Description/Findings: Flushes easily and blood returned Estimated blood loss: < 5 mL Specify complication(s): No apparent complications Follow-up chest x-ray: Ordered documented in this encounter [facility] 11-26-2023 Consult note Associated Order (s): IP WOUND CARE NURSE CONSULT TO EVAL; IP WOUND CARE NURSE CONSULT TO EVAL Images from the original note were not included. [facility] Wound Care CONSULT Note Salazar Coyle AGE: [...] with meals. 10 mL 2 nystatin (Mycostatin) 405916 UNIT/GM powder oxyCODONE (Oxy-IR) 5 MG immediate [...] drainage. Edema present. Photo: 11/26/23 Left breast: [place] rash noted to area. No openings. No [...] Clean with Hibiclens, apply Lac-hydrin then leave FORGING DIES FINAL FINISHER daily Left breast: Fungal dermatitis - Clean with soap and water, dry well, Miconazole powder BID and PRN Bilateral buttocks: MASD (bodily fluids) -Clean with soap and water, apply ET mix then leave FORGING DIES FINAL FINISHER TID and PRN Abdomen folds, bilateral knee folds: Fungal dermatitis - Clean with soap and water, dry well, Miconazole powder BID and PRN TCB bed Reposition q2hrs Incontinent checks q2hrs Nutritional support Wound Care to follow Recommend to follow up at [facility] Outpatient wound care center after hospital discharge. [...] BID, Jeffry Sal MD, 5 mg at 11/24/23 0842 atorvastatin (Lipitor) tablet 20 mg, 20 mg, Oral, Daily, Jeffry Sal MD, 20 mg at 11/24/23 0842 baclofen (Lioresal) tablet 5 mg, 5 mg, [...] Jeffry Sal MD, 4 g at 11/24/23 0844 donepezil (Aricept) tablet 10 mg, 10 mg, Oral, Nightly, Jeffry Sal MD, 10 mg at 11/23/23 2100 gabapentin (Neurontin) capsule 300 mg, 300 mg, Oral, TID, Jeffry Sal MD, 300 mg at 11/24/23 0842 glucagon (human recombinant) injection 1 mg, 1 mg, IntraMUSCular, PRN, Jeffry Sal MD glucose oral gel 15 g, 15 g, Oral, PRN, Jeffry Sal MD insulin glargine (Lantus) injection 30 Units, 30 Units, SubCUTAneous, Nightly, Jeffry Sal MD, 30 Units at 11/23/232121 Insulin Lispro (Humalog) injection 0-6 Units, 0-6 Units, SubCUTAneous, TID WC, 3 Units at 11/24/23842 AND Insulin Lispro (Humalog) injection 0-6 Units, [...] Campbell PA-C, Last Rate: 33.3 mL/hr at 11/24/23843, 2,000 mg at 11/24/23843 miconazole (Micotin) 2 % powder, , Topical, BID, Jeffry Sal MD, Given at 11/24/23842 naloxone (Narcan) injection 0.4 mg, 0.4 mg, IntraVENous, q5 min PRN, Jeffry Sal MD nystatin (Mycostatin) cream, , Topical, BID, Jeffry Sal MD, Given at 11/23/232131 ondansetron ODT (Zofran-ODT) disintegrating tablet 4 mg, 4 mg, Oral, q8h PRN OR ondansetron (Zofran) injection 4 mg, 4 mg, IntraVENous, q6h PRN, Jeffry Sal MD oxyCODONE (Roxicodone) immediate release tablet 5 mg, 5 mg, Oral, q4h PRN, Jeffry Sal MD, 5 mg at 11/24/23841 polyethylene glycol (PEG) 3350 (Miralax) packet 17 [...] 3:07 PM EDT XR chest 1 view [[id number]] Collected: 11/22/232155 Order Status: Completed Updated: 11/22/232199 Narrative: [facility] 1950 [id number] Exam Date/Time: 11/22/2023 21:50 Procedure: XR CHEST [...] PGY-3 11/24/2023 10:29 AM -Please refer to proposition player finder and page proposition player resident with questions or concerns The history [...] Date of evaluation - 11/23/2023 [facility] Consulting - Jeffry Sal MD Primary Care Physician - Piage Rivera DO Chief Complaint : Altered Mental Status (Pt arrives via EMS from [facility] for AMS. Per EMS pt began acting [...] Problem List Diagnosis Hypertension Edema Foot ulcer ([facility]) Hyperlipemia Bladder spasm Type 2 diabetes mellitus with hyperglycemia ([facility]) Wounds, multiple Degenerative disc disease, cervical Chronic pain Osteoarthrosis PAF (paroxysmal atrial fibrillation) ([facility]) Cognitive decline Morbid obesity with BMI of 60.0-69.9, adult ([facility]) 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 ([facility]) Recurrent UTI Cerebrovascular accident ([facility]) Hyperglycemia Chronic indwelling Jose catheter CKD (chronic kidney disease) Asymptomatic bacteriuria Anemia Septic shock ([facility]) Inflammatory reaction due to indwelling ureteral stent, initial encounter ([facility]) Ureteropelvic junction calculus WHITLEY (acute kidney injury) ([facility]) Chronic venous stasis Radicular pain in right arm Severe sepsis ([facility]) Altered mental status, unspecified altered mental status type Medical History Past Medical History Past Medical History: Diagnosis Date A-fib ([facility]/H[facility]) ([facility]) Anemia Diabetes ([facility]) Lymphedema Obesity Past Surgical History Past Surgical [...] 3 times daily with meals nystatin (Mycostatin) 852114 UNIT/GM powder No dose, route, or frequency [...] from last 7 days Lab Units 11/23/23 044 WBC AUTO 10*3/uL 7.4 HEMOGLOBIN g/dL 10.3* [...] QTC Interval 11/22/2023 512 ms Final P Hollenberg 11/22/2023 0 degrees Final QRS [place] 11/22/2023 14 degrees Final T Wave Hollenberg 11/22/2023 72 degrees Final PA Interval 11/22/2023 90 ms Final BETA HYDROXYBUTYRATE [...] Final Leukocytes, Urine 11/22/2023 250 (A) Negative Ijmenez/uL Final Nitrite, Urine 11/22/2023 Positive (A) Negative [...] chloride, 150 mL/hr, Last Rate: 150 mL/hr (11/23/23 2030) Weight (!) 400 lb (181 kg) (11/22/23 2340) BMI Body mass index is 66.56 kg/m . [facility] within last 24 hours- BMP: Recent Labs 11/22/23213311/23/23443 NA 137 137 K 4.5 3.9 CL 103 107 CO2 29 26 BUN 28* 24* CREATININE 0.91 0.79 CALCIUM 8.7 8.1* MG -- 1.9 LFTs: Recent Labs 11/22/23213311/22/23223011/23/23443 AST 36 -- 21 ALT 16 -- 15 PROT 6.9 -- 5.8* ALBUMIN 3.4* -- 2.8* BILITOT 0.8 -- 0.4 BILIRUBINU -- Negative -- ALKPHOS 82 -- 78 Glucose: Recent Labs 11/22/23201711/22/23213311/23/234 11/23/23 0747 11/23/23 1248 11/23/23 1659 11/23/23 2057 GLUCOSE -- 350* 327* -- -- -- [...] RDW 15.8* -- 15.7* ABGs: Recent Labs 11/23/23 0051 [id number] Room Air Lactic Acid: Recent Labs 11/23/2344311/23/23 1019 11/23/23 1916 LACTATE 2.9* 2.8* 4.4* INR: No results for input(s): "INR" in the last 72 hours. Cardiac Injury Profile: Recent Labs 11/22/23 2134 11/23/23 0051 11/23/23 0444 TROPONINI <0.012 0.012 0.012 Labs in Last [...] Narrative [facility]AR COYLE : 1950 [id number] Exam Date/Time: 08/02/2023 16:57 Procedure: CT CHEST [...] and medical team Questions and concerns addressed.. DEC- CORE MEASURE DATA SIRS Criteria Sepsis Criteria [...] not displayed. Ivf/ abx/ Cristino Bruno DO [facility] Department of Pulmonary and Critical Care Medicine Thank you for allowing us to participate in the care of this patient. Associated Order(s): IP CONSULT TO INFECTIOUS DISEASES Images from the original note were not included. [facility] - Infectious Diseases Advanced Practice Provider [...] Urine cx NG. Pt presented again to [facility] ED on 07/30/23 with chief complaint of [...] , left flexible ureteroscopic laser lithotripsy. Mili Current Medications: Current Facility-Administered Medications Medication Dose [...] 0-6 Units 0-6 Units SubCUTAneous Nightly Jeffry aSl MD Insulin Lispro (Humalog) injection 5 Units [...] with meals. 10 mL 2 nystatin (Mycostatin) 471802 UNIT/GM powder oxyCODONE (Oxy-IR) 5 MG immediate release capsule Take 5 mg by mouth. senna-docusate (Heelna-Colace) 8.6-50 MG tablet Take 100 tablets by [...] Content: Thought content normal. Labs: Recent Labs 11/22/23213311/23/23 0444 NA 137 137 K 4.5 3.9 CL 103 107 CO2 29 26 BUN 28* 24* CREATININE 0.91 0.79 GLUCOSE 350* 327* CALCIUM 8.7 8.1* PROT 6.9 5.8* BILITOT 0.8 0.4 ALKPHOS 82 78 AST 36 21 ALT 16 15 Recent Labs 11/22/23213311/23/23 0051 11/23/23 0444 WBC 7.4 -- 7.4 [...] for accounting for open encounter. FLOR Denson, PA-C documented in this encounter [employer] 11-25-2023 Telephone encounter Note 11/25/23 VERY difficult , left ureteral stent. Multilength. ( Body habitus, inability to bend right leg) Schedule cystoscopy, left ureteroscopic laser lithotripsy, left ureteral stent change in 2-3 weeks at [facility]. 1.5 hours. Has to be in room 14. Urine culture one week prior ( Order in) [facility] 11-25-2023 Miscellaneous Notes 11/25/23 VERY difficult , left ureteral stent. Multilength. ( Body habitus, inability to bend right leg) Schedule cystoscopy, left ureteroscopic laser lithotripsy, left ureteral stent change in 2-3 weeks at [facility]. 1.5 hours. Has to be in room 14. Urine culture one week prior ( Order in) Mili documented in this encounter [facility] 11-23-2023 Emergency department Note Patient was offered prn acetaminophen, did not want. Hayley Upton RN 11/23/23 1432 Pt back to rm 39. Tamara Landaverde RN 11/23/[address] scan. Tamara Landaverde RN 11/23/23 1330 Pt moved to bariatric hospital bed Guido Rodrigues RN 11/22/234 Emergency Department Encounter Location: [facility] EMERGENCY DEPT Patient: Salazar Coyle : 1950 Date of evaluation: 11/22/2023 ED Provider: Giuliana Aparicio, Time received sign-out: 2199 Salazar Coyle was checked out to me by Dr. Aguilera. Please see his/her initial documentation for details of the patient's initial ED presentation, physical exam and completed studies. In brief, Salazar Coyle is a 73 y.o. adult that presented to the emergency department from [facility] with reports of altered mental [...] dictations but occasionally words are mis-transcribed.) Giuliana Aparicio, DO [employer] Giuliana Aparicio, DO Resident 11/23/23 0022 EMERGENCY DEPARTMENT ENCOUNTER Pt Name: Salazar Coyle Birthdate 1950 Date of evaluation: 11/22/2023 ED Provider: Torres Aguilera MD CHIEF COMPLAINT Chief Complaint Patient presents with Altered Mental Status Pt arrives via EMS from [facility] for AMS. Per EMS pt began acting [...] altered mental status. Patient is presenting from group home facility. Patient has a history of A-fib, [...] the evening. Inject with meals. NYSTATIN (MYCOSTATIN) 997934 UNIT/GM POWDER OXYCODONE (OXY-IR) 5 MG IMMEDIATE [...] No SCREENINGS PHYSICAL EXAM ED Triage Vitals [11/22/23 192] Temp Heart Rate Resp BP 36.9 C [...] Abnormal Glucose 390 (*) Narrative: Performed by: [facility], [address] [place] [address] CLIA ID: [id number] SARS-COV-2, FLU A/B, AND RSV COMBO BLOOD CULTURE BLOOD CULTURE COMPREHENSIVE METABOLIC PANEL COMPLETE URINALYSIS WITH REFLEX TO CULTURE Narrative: The following orders were created for panel order Complete Urinalysis with reflex to Culture. Procedure Abnormality Status --------- ------ Complete Urinalysis[[id number]] Please view results for these tests on [...] Emergency Medicine Provider Torres Aguilera MD Resident 11/22/232229 Emergency Department Encounter EMERGENCY DEPARTMENT Patient: Salazar [...] give us details about her medical history. [facility] reported that her glucose was in the [...] at this time. The disorientation at the long-term was initially noting is gone Diffusely diminished 3/5 strength and intact sensation all 4 extremities Cranial nerves II through XII normal No slurred speech, not dysarthric No aphasia No facial droop Ability to test finger-nose and zjbr-[id number]-[id number] coordination is limited by debility Ability to [...] My interpretation can be found in the [employer] EKG system. EKG shows NSR, normal axis, normal PA interval, prolonged QRS and QTC, no STEMI, [...] Abnormal Glucose 390 (*) Narrative: Performed by: [facility], [address] [place] [address] CLIA ID: [id number] TROPONIN, WITH SERIAL REFLEX - Normal TROPONIN [...] Culture. Procedure Abnormality Status --------- ------ Complete Urinalysis[[id number]] Abnormal Final result Please view results for [...] MD 11/23/23 0129 documented in this encounter [facility] 11-23-2023 History and physical note Attending History [...] with meals. 10 mL 2 nystatin (Mycostatin) 274866 UNIT/GM powder oxyCODONE (Oxy-IR) 5 MG immediate [...] - Date - 11/25 - Location - [facility] (Non-Skilled) Total time spent (which include face to face and non face to face encounters) : 65 minutes. Extended Emergency Contact Information Primary Emergency Contact: Deidra Vang Address: [address] [place] [address] [facility] [employer] Relation: Daughter Secondary Emergency Contact: Jesus aVng Mobile Relation: Spouse Preferred language: [place] Neurosurgeon needed? No Jeffry Sal MD Division of Hospitalist Medicine Inpatient Medical Services/[facility] documented in this encounter [facility] 10-04-2023 Telephone encounter Note Name of Caller: Salazar Contact Reason for Appointment: Salazar has procedure 10/05/23 that she wasn't aware of until today. Salazar is in a long-term and transportation is made through them. [facility] in [place]. Salazar states she thought the stint was already removed. Please call her daughter Deidra (JAKY) to reschedule if needed. Office Name: [facility] 10-04-2023 Miscellaneous Notes Name of Caller: Salazar Contact Reason for Appointment: Salazar has procedure 10/05/23 that she wasn't aware of until today. Salazar is in a long-term and transportation is made through them. [facility] in [place]. Salazar states she thought the stint was already removed. Please call her daughter Deidra (JAKY) to reschedule if needed. Office Name: [facility] 09/27/23 Cytoscopy, left ureteral stent removal , left flexible ureteroscopic laser lithotripsy. Follow up PRDarian Vásquez documented in this encounter [facility] 09-27-2023 Note Formatting of this n ote might be different from the original. Report called to Jada Mayes. Transport arranged with [facility] 09-27-2023 Note Formatting of this n ote might be different from the original. Report called to [facility]. Transport arranged with [facility] 09-27-2023 Miscellaneous Notes Report called to [facility]. Transport arranged with [facility] PreOp Dx 8 mm left renal calculus, left ureteral stent PostOp Dx Same Operation Cystoscopy, , flouroscopy, left ureteral stent removal, left ureteroscopy, flexible ureteroscopic laser lithotripsy, Surgeon Bashir Vásquez MD Assist Kavin Rodriguez MD EBL Minimal Drains none Jose Specimen Condition To PACU This is a 73 y.o. patient who resideds at an [facility] presents with a 8 mm left renal [...] awoken from anesthesia. documented in this encounter [facility] 09-27-2023 Telephone encounter Note 6/27/24 Cytoscopy, left ureteral stent removal , left flexible ureteroscopic laser lithotripsy. Follow up NAT Vásquez [employer] Work Phone: 09-27-2023 Note Formatting of this [...] 73 y.o. patient who resideds at an [facility] presents with a 8 mm left renal [...] was placed and patient awoken from anesthesia. [employer] 09-27-2023 Note Formatting of this n ote [...] 73 y.o. patient who resideds at an [facility] presents with a 8 mm left renal [...] was placed and patient awoken from anesthesia. [facility] 09-27-2023 History of Present illness Narrative Received call from [facility] stating [facility] called earlier stating they will be late. As of 8:55am, transportation had not yet arrived. [facility] to call [facility] to ask ETA. [facility] stated they did call [facility] and verified Ms. Coyle could still be seen today. documented in this encounter [facility] 09-26-2023 Telephone encounter Note Notified Ms. Coyle has planned surgery in the morning and needs to arrive to [facility] at 8am. Her residence is [facility]. Per report, the facility has not yet been able to secure a transportation company who can meet her needs. Call placed to [facility] ([phone]) and spoke with the Adiel STEPHEN. Adiel [...] Ms. Coyle will need to return to [facility] for a follow up appointment 10/04. Per [facility], appointment time is 10:20am. Call placed to [facility] ([phone]) and they declined citing lack of availability. Call placed to [facility] ([phone]) and spoke with Jaylyn. Jaylyn confirmed [facility] is able to accept and will be at [facility] in the morning between 7:00a-7:15a. Verified [facility]'s address. Reviewed insurance, physician at [facility] (Dr. Rivera) and room at [facility] ([facility]). Shared current weight per [facility] (314 lbs). Verified surgery site is [facility]. Reviewed no oxygen per [facility]. Return trip will be needed. Follow up appointment 10/04 also scheduled with [facility]. They will arrive to [facility] at 9:15am for her 10:20am at [facility] [address] per [facility] Return trip may be required depending on length of procedure. Call placed to ZAFAR Morris to update him of the above. Notified Duc Holguin, passenger booking clerkCentrifugal Casting Machine Tender Care Management with the [facility]. No further needs at this time. [facility] 09-26-2023 Miscellaneous Notes Notified Ms. Coyle has planned surgery in the morning and needs to arrive to [facility] at 8am. Her residence is [facility]. Per report, the facility has not yet been able to secure a transportation company who can meet her needs. Call placed to [facility] ([phone]) and spoke with the Adiel STEPHEN. Adiel [...] Ms. Coyle will need to return to [facility] for a follow up appointment 10/04. Per [facility], appointment time is 10:20am. Call placed to [facility] ([phone]) and they declined citing lack of availability. Call placed to [facility] ([phone]) and spoke with Jaylyn. Jaylyn confirmed [facility] is able to accept and will be at [facility] in the morning between 7:00a-7:15a. Verified [facility]'s address. Reviewed insurance, physician at [facility] (Dr. Rivera) and room at [facility] ([facility]). Shared current weight per ZAFAR (314 lbs). Verified surgery site is [facility]. Reviewed no oxygen per [facility]. Return trip will be needed. Follow up appointment 10/04 also scheduled with [facility]. They will arrive to [facility] at 9:15am for her 10:20am at [facility] [address] per [facility]. Return trip may be required depending on length of procedure. Call placed to ZAFAR Morris to update him of the above. Notified Duc Holguin, passenger booking clerkCentrifugal Casting Machine Tender Care Management with the [facility]. No further needs at this time. documented in this encounter [facility] 09-26-2023 History and physical note History Of Present Illness Salaazr Coyle is a 73 y.o. female presenting [...] limited to Failure of procedure, Bleeding, infection, [place], Stroke, PE, . Patient understands and agrees to proceed. Informed consent obtained. Spe[employer] Nab[employer] wireWAX Phone: 09-26-2023 History and physical note History Of Present Illness Salazar Coyle is a 73 y.o. female presenting with a left Ureteropelvic junction calculus, has a left ureteral stent in place Past Medical History She has a past medical history of A-fib (CMS/HCC) ([facility]), Anemia, Diabetes ([facility]), Lymphedema, and Obesity. Surgical History She has [...] limited to Failure of procedure, Bleeding, infection, [place], Stroke, PE, . Patient understands and agrees to proceed. Informed consent obtained. Mili documented in this encounter [facility] 08-09-2023 Miscellaneous Notes S/W, follow up I did inform patient daughter of transport today to [facility]. Daughter noted concern about patient wounds and condition she came in from [facility]. I did provide Daughter with the number to [employer] to call and report her concerns. I did ask daughter if she still wanted the patient to return to [facility] and she confirmed that she did. She noted the patient had been moved several times and she did not wish to do so again. Discharge med list transmitted to [facility] request. 7000 completed in [facility] per TCC request. Facility notified via careport. Images from the original note were not included. Care Management Progress Note DC orders in and signed by Dr. Rivera. SUPERCHARGER REPAIR SUPERVISOR set up transport for 2:30 PM. Patient is returning skilled instead of ECF. LASTING ROOM MACHINE OPERATOR tasked in [facility] to send 7000 and DC info to [facility]. DC to SNF in stable condition. Discharge Milestones and Delays Expected Date/Time: 08/09/2023 Disposition: [facility]pc Facility Transport status: No current request Discharge Milestones Completed Place discharge order Complete med reconciliation Case mgmt discharge readiness Clinical Stability Diagnsotic Workup Expected Discharge History Expected Date/Time Set By Reviewed At 08/09/2023 Paige Rivera DO 08/09/2023 10:32 AM Auth started for return to [facility]" 08/10/2023 Nancy Gastelum RN 08/09/2023 8:28 AM 08/10/2023 Nancy Gastelum RN 08/08/2023 8:47 AM [...] Gastelum RN 08/01/2023 8:40 AM Bedbound at ID Cons" 08/08/2023 Nancy Gastelum RN 07/31/2023 8:33 AM From [facility] ECF Return referral sent in Careport" 11/07/2023 ZINA Doan CNP 07/30/2023 10:22 PM 11/07/2023 ZINA Doan CNP 07/30/2023 9:44 PM Length of Stay (Days): 10 GMLOS: 5.9 Sent updated notes to return back to [facility] via [facility] per TCC request. Await review and response regarding ability to accept. TCC notified. Received SecureChat from miguelangel Pizarro to start insurance auth. Messaged [facility] via [facility] to initiate pre-cert. TCC will continue to follow. Images from the original note were not included. Care Management Progress Note Patient remains in ICU for severe sepsis Clinical updates: Downgraded to Medical. Remains on IV abx through 08/15. [facility] able to take back skilled, awaiting clearance from Attending to start insurance pre-cert. Discharge plan: [facility] Discharge obstacles: Awaiting clinical stability TCC [...] Nancy Gastelum RN 07/31/2023 8:33 AM From [facility] ECF [facility]" 11/07/2023 ZINA Doan CNP 07/30/2023 10:22 [...] convert to PO if able) None Anticipated [place]er Medications (ICU initiated) or Dose Changes and [...] within 24 hours of ICU transfer, page [phone]/Dr. Garner for clarifications. Electronically signed by @MEMDNR@ on @TDNR@ at @NOWNR@ PATIENT TRANSFERRED OUT OF ICU [facility]IENT [facility] 72 yo CF PMHx ESBL ecoli bacteremia, dementia, A-fib on Eliquis, DMT2, PHOEBE, morbid obesity, bed bound from spine fractures, chronic Jose secondary to neurogenic bladder, chronic pain, anxiety, admitted with AMS from septic shock/ecoli bacteremia secondary to left UPJ calculus s/p stent . Intubated on 07/30, extubated on 08/01/23. On PO diuretics. Discussed with Mig Tig Welder , Dr. Garner. Images from the original [...] for surgical intervention. Did send message via [employer] to [facility] to determine if they will be able [...] Gastelum RN 08/01/2023 8:40 AM Bedbound at ID Cons" 08/08/2023 Nancy Gastelum RN 07/31/2023 8:33 AM From [facility] Return referral sent in [facility]" 11/07/2023 ZINA Doan CNP 07/30/2023 10:22 PM 11/07/2023 ZINA Doan CNP 07/30/2023 9:44 PM Length of Stay (Days): 7 GMLOS: 5.9 Family Communication Number Called: [phone] and [phone] Name of Designated Family Senior Tax Accountant: Martha Relationship: Daughter (POA) and spouse Phone Call Outcome: Spoke to both daughter and . Family Senior Tax Accountant Updated on the Following: updated on patient [...] Gastelum RN 08/02/2023 8:45 AM Bedbound at 08/08/2023 Nancy Gastelum RN 08/01/2023 8:40 AM Bedbound at ID Cons" 08/08/2023 Nancy Gastelum RN 07/31/2023 8:33 AM From [facility] ECF Return referral sent in [facility]" 11/07/2023 ZINA Doan CNP 07/30/2023 10:22 PM 11/07/2023 ZINA Doan CNP 07/30/2023 9:44 PM Length of Stay (Days): 4 GMLOS: 9.9 Patient remains intubated and on ventilator. Insulin gtt still infusing. TCC will continue to follow. ] Family Communication Name of Designated Family Senior Tax Accountant: deidra Coyle Relationship: daughter Phone Call Outcome: I spoke with the individual listed above. Family Senior Tax Accountant Updated on the Following: updated on plan of care and the events of the last 12-24 hours during the patients admission, Voiced understanding of plan of care Care Managment Initial Assessment Date: 07/31/2023 Patient Name: Salazar Coyle : 1950 Patient Information Source of Information: Patient Senior Tax Accountant Name/Contact Information: Jesus via telephone Cognition/Language: Confused at baseline Permission given to speak with patient claim representative/caregiver as indicated: Yes Confirmation of Payer with patient/family: Yes Payer Name: Bk GUERRA/IGNACIO-[place] : No Confirmation of Primary Care Physician: Confirmed PCP Name: Dr. Paige Rivera Seen in last 2 years?: Yes Primary Caregiver: ([facility] staff) If assistance needed, confirmed caregiver ready, willing and able to care for patient at discharge: Yes [facility] Living Arrangements Current Residence: Number of Floors Number of Entry Steps: Bed/Bath Levels: Facility: Jail[facility] Facility Name: [facility] Plan to Return: Yes Lives with: ([facility] staff and residents) Support Systems: Spouse/significant other, Children, Parent, Family members, Comments (Other) ([facility] staff and residents) Activities of Daily Living Ambulation: Total Care Bathing/Dressing: Total Care Elimination/Continence/Toileting: Total Care Feeding: Independent Who Assists with Activities of Daily Living: F staff Instrumental Activities of Daily Living Prescription Coverage: Yes [facility] Medication Management: ([facility] nurses manage meds) Transportation/Shopping: Transportation Mode: (Family and ECF provide all necessities) Needs Assistance with Transportation at Discharge: Yes (SUPERCHARGER REPAIR SUPERVISOR to set up return transport) Meal Preparation: [...] expects to be discharged to: Return to [facility] Discharge Planning Actions: Continue to follow [...] \\yesterday. Has chronic Jose. Patient lives in [facility], [facility] to set up return transport to [facility]. Sees facility Licensed Embalmer Dr Paige Rivera (PCP) routinely. Has insurance and prescription coverage, uses [facility]. Jesus denies any financial difficulties. Plan to return to [facility] when medically stable, confirmed that patient is a Medicaid bed hold in [facility]. Jesus verbalizes understanding and is in agreement with POC Nancy Gastelum RN Referral placed to return back to [facility] via [facility] per TCC request. Await review and response regarding ability to accept. TCC notified. PreOp Dx Left ureteral calculus, UTI PostOp Dx Same Operation Cystoscopy, Left ureteral stent placement ( 6x Variable length) Surgeon MD Ric Dodson EBL Minimal Drains 6fr X Variable length Jose Specimen None Condition To PACU This is a 72 y.o. patient who presents with Left ureteral calculus, UTI, sepsis, was in ICUY at [place]. After having a discussion on treatment options, [...] tolerating procedure well. documented in this encounter [facility] 08-09-2023 History of Present illness Narrative Department of Internal Medicine Division of Endocrinology, Diabetes, & Metabolism Endocrinology Note Patient Name: Salazar Coyle : 1950 AGE: 72 y.o. Room/Bed: [facility] Admission Date: 07/30/2023 Visit Date: 08/09/2023 Reason for Endocrine Consult: Hyperglycemia requiring insulin GGT, on steroids and tube feeds Provider/Team Requesting Consult: Dr. Del Real PCP: Paige Rivera DO Outpt Membership Counselor: Yes Dr. Woods ASSESSMENT: Type II Diabetes [...] exchange at this time. Patient arrived to [facility] ED for altered mental status. Cystoscopy, [...] g, IntraVENous, Every 8 hours nystatin (Mycostatin) 500365 UNIT/GM powder No dose, route, or frequency [...] found for: "CHOLHDLRATIO" No results found for: "DYIU39ZPU" No results found for: "TSH", "G4VEUEI", "K8DRRLH", "THYROIDAB" Radiology reportsas per the Radiologist Radiology: POCT glucose meter Result Date: 07/31/2023 Performed by: [facility], [address] [place] [address] CLIA ID: [id number] POCT glucose meter Result Date: 07/31/2023 Performed by: [facility], [address] [place] [address] CLIA ID: [id number] POCT glucose meter Result Date: 07/31/2023 Performed by: [facility], [address] [place] [address] CLIA ID: [id number] POCT glucose meter Result Date: 07/31/2023 Performed by: [facility] [place] [facility], [address] [place] [address], [place] [address] CLIA ID: [id number] POCT glucose meter Result Date: 07/31/2023 Performed by: [facility] [place] [facility], [address] [place] [address], [place] [address] CLIA ID: [id number] POCT glucose meter Result Date: 07/31/2023 Performed by: [facility] [place] [facility], [address] [place] [address], [place] [address] CLIA ID: [id number] POCT glucose meter Result Date: 07/31/2023 Performed by: [facility] [place] [facility], [address] [place] [address], [place] [address] CLIA ID: [id number] POCT glucose meter Result Date: 07/31/2023 Performed by: [facility] [place] [facility], [address] [place] [address], [place] [address] CLIA ID: [id number] POCT glucose meter Result Date: 07/31/2023 Performed by: [facility] [place] [facility], [address] [place] [address], [place] [address] CLIA ID: [id number] POCT glucose meter Result Date: 07/31/2023 Performed by: [facility] [place] [facility], [address] [place] [address], [place] [address] CLIA ID: [id number] POCT glucose meter Result Date: 07/31/2023 Performed by: [facility] [place] [facility], [address] [place] [address], [place] [address] CLIA ID: [id number] POCT glucose meter Result Date: 07/31/2023 Performed by: [facility] [place] [facility], [address] [place] [address], [place] [address] CLIA ID: [id number] POCT glucose meter Result Date: 07/31/2023 Performed by: [facility] [place] [facility], [address] [place] [address], [place] [address] CLIA ID: [id number] Transthoracic echocardiogram (TTE) complete with contrast, bubble, [...] glucose meter Result Date: 07/31/2023 Performed by: [facility], [address] [place] [address] CLIA ID: [id number] POCT glucose meter Result Date: 07/31/2023 Performed by: [facility] [place] [facility], [address] [place] [address] CLIA ID: [id number] POCT glucose meter Result Date: 07/31/2023 [facility]formed by: [facility], [address] [place] [address] CLIA ID: [id number] POCT glucose meter Result Date: 07/31/2023 [facility]formed by: [facility], [address] [place] [address] CLIA ID: [id number] IN GUIDANCE OR USE ONLY - NON RESULTABLE Result Date: 07/31/2023 There is no interpretation needed for this exam. ECG 12 lead Sinus tachycardia IVCD, consider LBBB Electronically Signed On 07-31-2023 06:14:25 EDT by Emilie Nicole POCT glucose meter Result Date: 07/31/2023 Performed by: [facility], [address] [place] [address] CLIA ID: [id number] XR chest 1 view Result Date: 07/31/2023 [...] distal tip coursing subdiaphragmatically and beyond the zqjyy-dv-gdvd. Cardiac leads project over the chest, somewhat [...] glucose meter Result Date: 07/31/2023 Performed by: [facility], [address] [place] [address] CLIA ID: [id number] POCT glucose meter Result Date: 07/31/2023 Performed by: [facility], [address] [place] [address] CLIA ID: [id number] XR chest 1 view Result Date: 07/31/2023 [facility] 1950 [id number] Exam Date/Time: 07/31/2023 01:43 Procedure: XR CHEST [...] 07/31/2023 Patient Name: SALAZAR COYLE : 1950 [facility]#: [id number] Exam Date/Time: 07/31/2023 00:27 Procedure: CT ABDOMEN [...] to portions of the patient outside the zmfme-ec-ovgi and associated beam hardening artifact. TECHNIQUE: Contiguous [...] Result Date: 07/31/2023 Performed by: [facility], [address] [place] [address] CLIA ID: [id number] ECG 12 lead Sinus or ectopic atrial [...] glucose meter Result Date: 07/31/2023 Performed by: [facility] [place] [facility], [address] [place] [address], [place] [address] CLIA ID: [id number] POCT glucose meter Result Date: 07/31/2023 Performed by: [facility] [place] [facility], [address] [place] [address], [place] [address] CLIA ID: [id number] POCT glucose meter Result Date: 07/31/2023 Performed by: [facility] [place] [facility], [address] [place] [address], [place] [address] CLIA ID: [id number] POCT arterial blood gas Result Date: 07/31/2023 Performed by: [facility] [place] [facility], [address] [place] [address] [place] [address] CLIA ID: [id number] POCT glucose meter Result Date: 07/30/2023 Performed by: [facility] [place] [facility], [address] [place] [address], [place] [address] CLIA ID: [id number] POCT glucose meter Result Date: 07/30/2023 Performed by: [facility] [place] [facility], [address] [place] [address] [place] [address] CLIA ID: [id number] POCT venous blood gas Result Date: 07/30/2023 Performed by: [facility] [place] [facility], [address] [place] [address], [place] [address] CLIA ID: [id number] POCT glucose meter Result Date: 07/30/2023 Performed by: [facility] [place] [facility], [address] [place] [address], [place] [address] CLIA ID: [id number] CT head wo IV contrast Result Date: 07/30/2023 Patient Name: SALAZAR COYLE : 1950 [id number] Exam Date/Time: 07/30/2023 14:19 Procedure: CT HEAD [...] 07/30/2023 Patient Name: SALAZAR COYLE : 1950 [id number] Exam Date/Time: 07/30/2023 14:01 Procedure: XR CHEST [...] Result Date: 07/30/2023 Performed by: [facility], [address] [place] [address] CLIA ID: [id number] POCT glucose meter Result Date: 07/30/2023 Performed by: [facility], [address] [place] [address] CLIA ID: [id number] History/Other: Past Medical History: Past Medical History: [...] from the original note were not included. [facility] - Infectious Diseases [...] ALT 12 -- 13 -- Recent Labs 08/06/23 0444 08/06/23 1224 08/07/23 0313 08/08/23 0322 WBC 4.5 8.5 7.0 6.7 HGB 7.0* 8.2* 8.6* 8.9* HCT 22.4* 26.4* 27.9* 29.2* PLT 119* 176 205 240 LYMPHOPCT 30 -- 29 31.2 MONOPCT 5 -- 5 8.7 BASOPCT -- -- -- 0.4 NEUTROABS -- -- -- 3.3 Micro: No results for input(s): "COVID19" in the last 72 hours. Collected Updated Procedure Result Status 08/02/2023 0259 08/04/2023 0801 Blood culture Site #1 - Assess for effectiveness of treatment [[id number]] Blood, Venous Preliminary result Component Value Blood Culture No growth at 48 hours P 08/02/2023 0259 08/04/2023 0801 Blood culture Site #2 - Assess for effectiveness of treatment [[id number]] Blood, Venous Preliminary result Component Value Blood Culture No growth at 48 hours P Collected Updated Procedure Result Status 08/01/2023 0416 08/01/2023 1036 MRSA by PCR [[id number]] ESwab from Nasal Final result Component Value Staphylococcus aureus Not Detected mecA gene Not Detected 08/01/2023 0415 08/01/2023 1236 Respiratory culture and Stain [[id number]] Sputum Preliminary result Component Value Respiratory culture Culture in progress P Gram Stain Result Few Polymorphonuclear leukocytes per low power field P Few Epithelial cells per low power field P No organisms seen P 08/01/2023 0415 08/01/2023 1320 Pneumonia PCR Panel [[id number]] (Abnormal) Sputum Final result Component Value Staphylococcus [...] 07/30/2023 2153 07/30/2023 2316 SARS-CoV-2 by PCR [[id number]] Swab from Nasopharynx Final result Component Value SARS-CoV-2 Not Detected 07/30/2023 1652 08/01/2023 1102 Urine culture [[id number]] (Abnormal) Urine, Clean Catch Preliminary result Component Value Urine Culture Normal urogenital gbay present P 50,000-90,000 CFU/mL Escherichia coli Abnormal P 07/30/2023 1607 07/30/2023 1619 Occult blood x 1, stool [[id number]] Stool from Per Rectum Final result Component Value Fecal occult blood Negative 07/30/2023 1337 08/01/2023 1501 Blood culture Site #1 - Suspected Infection [[id number]] Blood, Venous Preliminary result Component Value Blood Culture No growth at 48 hours P 07/30/2023 1337 08/01/2023 0611 Blood culture Site #2 - Suspected Infection [[id number]] (Abnormal) Blood, Venous Preliminary result Component Value Blood Culture Gram-negative bacilli Panic P 07/30/2023 1337 08/01/2023 0611 Blood Culture Identification - Anaerobic [[id number]] (Abnormal) Blood, Venous Final result Component Value Escherichia coli Detected Abnormal CTX-M (ESBL gene) Detected Abnormal Lines: PICC (08/06/23) Radiography/Echo/Other: XR chest 1 view [[id number]] Collected: 08/01/23720 Order Status: Completed Updated: 08/01/23724 [...] GUIDANCE OR USE ONLY - NON RESULTABLE [[id number]] Resulted: 07/31/23634 Order Status: Completed Updated: 07/31/23634 Narrative: There is no interpretation needed for this exam. XR chest 1 view [[id number]] Collected: 07/31/23 0502 Order Status: Completed Updated: [...] distal tip coursing subdiaphragmatically and beyond the yqlot-ix-upnj. Cardiac leads project over the chest, somewhat [...] 5:05 AM EDT XR chest 1 view [[id number]] Collected: 07/31/23 0245 Order Status: Completed Updated: [...] EDT CT abdomen pelvis wo IV contrast [[id number]] Collected: 07/31/23223 Order Status: Completed Updated: 07/31/23235 [...] to portions of the patient outside the yganp-xc-plfw and associated beam hardening artifact. TECHNIQUE: Contiguous [...] AM EDT CT head wo IV contrast [[id number]] Collected: 07/30/23 1449 Order Status: Completed Updated: [...] 2:51 PM EDT XR chest 1 view [[id number]] Collected: 07/30/23 1403 Order Status: Completed Updated: 07/30/23 1420 Narrative: [facility] COYLE : 1950 [id number] Exam Date/Time: 07/30/2023 14:01 Procedure: XR CHEST [...] at 30 and bed in reverse trendelenburg [facility] Wound Care Progress Note Salazar Patelford AGE: 72 y.o. GENDER: female : 1950 [...] Noted Hypertension 04/15/2021 Edema 04/11/2021 Foot ulcer ([facility]) 04/13/2021 Hyperlipemia 04/15/2021 Bladder spasm 03/08/2021 Type 2 diabetes mellitus with hyperglycemia ([facility]) 03/08/2021 Wounds, multiple 04/11/2021 Degenerative disc disease, cervical 03/08/2021 Chronic pain 03/08/2021 Osteoarthrosis 03/08/2021 PAF (paroxysmal atrial fibrillation) ([facility]) 04/11/2021 Cognitive decline 04/15/2021 Morbid obesity with BMI of 60.0-69.9, adult ([facility]) 04/15/2021 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 ([facility]) 04/11/2021 Recurrent UTI 03/08/2021 Cerebrovascular accident ([facility]) 03/08/2021 Hyperglycemia 04/11/2021 Chronic indwelling Jose catheter 04/15/2021 CKD (chronic kidney disease) 04/11/2021 Asymptomatic bacteriuria 04/11/2021 Anemia 04/11/2021 Septic shock ([facility]) 06/09/2022 Inflammatory reaction due to indwelling ureteral stent, initial encounter ([facility]) 08/02/2022 Ureteropelvic junction calculus 08/07/2022 WHITLEY (acute kidney injury) ([facility]) 08/07/2022 Chronic venous stasis 08/07/2022 Radicular pain in right arm 01/08/2023 Resolved Ambulatory Problems Diagnosis Date Noted No Resolved Ambulatory Problems Past Medical History: Diagnosis Date A-fib ([facility] [facility]) ([facility]) Diabetes ([facility]) Lymphedema Obesity PAST SURGICAL HISTORY History reviewed. [...] 10 mg by mouth daily. nystatin (Mycostatin) 117217 UNIT/GM powder senna-docusate (Helena-Colace) 8.6-50 MG tablet [...] Care to follow Please follow up at [facility] wound care center after hospital discharge. [...] were not included. Hospitalist Progress Note 08/08/2023 [phone]: Please page me ([phone]) for patient care issues. [phone]: Please page [facility] Hospitalist for any issues. Subjective: Admit Date: 07/30/2023 PCP: Paige Rivera DO Room#: 222-09/222-09 A Interval History: No overnight [...] Contact: Deidra Vang Address: [address] [place], [place] [address] [place] [address] [place] Mobile Relation: Daughter Secondary Emergency Contact: OlivaJesus youngblood Mobile Relation: Spouse Preferred language: [place] Neurosurgeon needed? No Paige Rivera DO Division of Hospitalist Medicine Inpatient Medical Services/[facility] [place] [facility]: Epic chat Department of Internal Medicine Division of Endocrinology, Diabetes, & Metabolism Endocrinology Note Patient Name: Salazar Coyle : 1950 AGE: 72 y.o. Room/Bed: 222/ A Admission Date: 07/30/2023 Visit Date: 08/08/2023 Reason for Endocrine Consult: Hyperglycemia requiring insulin GGT, on steroids and tube feeds Provider/Team Requesting Consult: Dr. Del Real PCP: Paige Rivera, DO Outpt Membership Counselor: Yes Dr. Woods ASSESSMENT: Type II Diabetes [...] exchange at this time. Patient arrived to [facility] ED for altered mental status. Cystoscopy, [...] g, IntraVENous, Every 8 hours nystatin (Mycostatin) 116250 UNIT/GM powder No dose, route, or frequency [...] found for: "CHOLHDLRATIO" No results found for: "JFUJ10BIW" No results found for: "TSH", "S7AHXIB", "G9XEJHL", "THYROIDAB" Radiology reportsas per the Radiologist Radiology: POCT glucose meter Result Date: 07/31/2023 Performed by: [facility], [address], [place] [address] CLIA ID: [id number] POCT glucose meter Result Date: 07/31/2023 [facility]: [facility], [address], [place] [address] CLIA ID: [id number] POCT glucose meter Result Date: 07/31/2023 [facility]formed by: [facility], [address], [place] [address] CLIA ID: [id number] POCT glucose meter Result Date: 07/31/2023 [facility]formed by: [facility], [address], [place] [address] CLIA ID: [id number] POCT glucose meter Result Date: 07/31/2023 Performed by: [facility], [facility] [address], [place] [address] CLIA ID: [id number] POCT glucose meter Result Date: 07/31/2023 [facility]formed by: [facility], [facility] [address], [place] [address] CLIA ID: [id number] POCT glucose meter Result Date: 07/31/2023 [facility]formed by: [facility], [facility] [address], [place] [address] CLIA ID: [id number] POCT glucose meter Result Date: 07/31/2023 [facility]formed by: [facility], [facility] [address], [place] [address] CLIA ID: [id number] POCT glucose meter Result Date: 07/31/2023 [facility]formed by: [facility], [address], [place] [address] CLIA ID: [id number] POCT glucose meter Result Date: 07/31/2023 [facility]formed by: [facility], [address], [place] [address] CLIA ID: [id number] POCT glucose meter Result Date: 07/31/2023 Performed by: [facility], [address], [place] [address] CLIA ID: [id number] POCT glucose meter Result Date: 07/31/2023 Performed by: [facility], [address] [place] [address] CLIA ID: [id number] POCT glucose meter Result Date: 07/31/2023 Performed by: [facility], [address] [place] [address] CLIA ID: [id number] Transthoracic echocardiogram (TTE) complete with contrast, bubble, [...] meter Result Date: 07/31/2023 Performed by: [facility], [address] [place] [address] CLIA ID: [id number] POCT glucose meter Result Date: 07/31/2023 Performed by: [facility], [address] [place] [address] CLIA ID: [id number] POCT glucose meter Result Date: 07/31/2023 Performed by: [facility], [address] [place] [address] CLIA ID: [id number] POCT glucose meter Result Date: 07/31/2023 Performed by: [facility], [address] [place] [address] CLIA ID: [id number] [place] GUIDANCE OR USE ONLY - NON RESULTABLE Result Date: 07/31/2023 There is no interpretation needed for this exam. ECG 12 lead Sinus tachycardia IVCD, consider LBBB Electronically Signed On 07-31-2023 06:14:25 EDT by Emilie Nicole POCT glucose meter Result Date: 07/31/2023 Performed by: [facility] [place] [facility], [address] [place] [address] CLIA ID: [id number] XR chest 1 view Result Date: 07/31/2023 Patient Name: SALAZAR COYLE : 1950 [facility]#: [id number] Exam Date/Time: 07/31/2023 04:56 Procedure: XR CHEST [...] distal tip coursing subdiaphragmatically and beyond the ympqv-rd-wqsx. Cardiac leads project over the chest, somewhat [...] Date: 07/31/2023 Performed by: [facility], [address] [place] [address] CLIA ID: [id number] POCT glucose meter Result Date: 07/31/2023 Performed by: [facility] [place] [facility], [address] [place] [address] CLIA ID: [id number] XR chest 1 view Result Date: 07/31/2023 [...] to portions of the patient outside the rzmty-ms-kgbm and associated beam hardening artifact. TECHNIQUE: Contiguous [...] Date: 07/31/2023 Performed by: [facility], [address] [place] [address] CLIA ID: [id number] ECG 12 lead Sinus or ectopic atrial [...] Date: 07/31/2023 Performed by: [facility], [address] [place] [address] CLIA ID: [id number] POCT glucose meter Result Date: 07/31/2023 Performed by: [facility], [address] [place] [address] CLIA ID: [id number] POCT glucose meter Result Date: 07/31/2023 Performed by: [facility], [address] [place] [address] CLIA ID: [id number] POCT arterial blood gas Result Date: 07/31/2023 Performed by: [facility], [address] [place] [address] CLIA ID: [id number] POCT glucose meter Result Date: 07/30/2023 Performed by: [facility], [address] [place] [address] CLIA ID: [id number] POCT glucose meter Result Date: 07/30/2023 Performed by: [facility], [address] [place] [address] CLIA ID: [id number] POCT venous blood gas Result Date: 07/30/2023 Performed by: [facility], [address] [facility] [address] CLIA ID: [id number] POCT glucose meter Result Date: 07/30/2023 Performed by: [facility], [address] [facility] [address] CLIA ID: [id number] CT head wo IV contrast Result Date: [...] blood gas Result Date: 07/30/2023 [facility]formed by: [facility] [place] [facility], [address] [place] [address] CLIA ID: [id number] POCT glucose meter Result Date: 07/30/2023 Performed by: [facility] [place] [facility], [address] [place] [address] CLIA ID: [id number] History/Other: Past Medical History: Past Medical History: Diagnosis Date A-fib (CMS/HCC) (HCC) Anemia Diabetes ([facility]) Lymphedema Obesity Past Surgical History: History reviewed. [...] note please contact the signing physician directly. [facility] Nephrology Progress Note Subjective/ 72 y.o. year [...] any questions or concerns. Ana Frost APRN, DIRECTOR PROFESSIONAL SERVICES [facility], [employer] [phone] office Associated attestation - Sarita Centeno MD - 08/08/2023 3:56 PM EDT I have reviewed the above assessment and plan with the SET UP AND LAY OUT INSPECTOR. I agree with above note. Renal function tolerating diuresis. Pt sitting on stool in room. Working with cell phone Images from the original note were not included. Speech-Language Pathology SPEECH LANGUAGE PATHOLOGY [facility] Dysphagia Treatment Note Patient Name: Salazar Coyle [...] Start: 08/06/23 Expected End: 08/13/23 Therapy Time MEDICARE NURSE Individual Minutes Time In: 0938 Time Out: 0954 Minutes: 16 NADIRA Newton Images from the [...] - continue prn oxycodone - will call dtr Deidra today to discuss scheduling oxycodone q6h may [...] is a 72 y.o. female living at [facility] for 24 hour care and supervision, has [...] other systems were reviewed and are negative. [place] Symptom Assessment Score [place] Score Pain Score 0 Tiredness Score 0 [...] history: status: no Marital status: Living status: long-term Work history: not empolyed Family Meeting: (if [...] Coyle : 1950 AGE: 72 y.o. Room/Bed: / A Admission Date: 07/30/2023 Visit Date: 08/07/2023 Reason for Endocrine Consult: Hyperglycemia requiring insulin GGT, on steroids and tube feeds Provider/Team Requesting Consult: Dr. Del Real PCP: Paige Rivera, DO Outpt Membership Counselor: Yes Dr. Woods ASSESSMENT: Type II Diabetes [...] exchange at this time. Patient arrived to [facility] ED for altered mental status. Cystoscopy, [...] g, IntraVENous, Every 8 hours nystatin (Mycostatin) 877754 UNIT/GM powder No dose, route, or frequency [...] found for: "CHOLHDLRATIO" No results found for: "NAST97ANO" No results found for: "TSH", "S7HVRNG", "E2GXWAW", "THYROIDAB" Radiology reportsas per the Radiologist Radiology: POCT glucose meter Result Date: 07/31/2023 Performed by: [facility], [address] [place] [address], [place] [address] CLIA ID: [id number] POCT glucose meter Result Date: 07/31/2023 Performed by: [facility], [address] [place] [address], [place] [address] CLIA ID: [id number] POCT glucose meter Result Date: 07/31/2023 [facility]: [facility], [address] [place] [address], [place] [address] CLIA ID: [id number] POCT glucose meter Result Date: 07/31/2023 [facility]formed by: [facility], [address] [place] [address], [place] [address] CLIA ID: [id number] POCT glucose meter Result Date: 07/31/2023 Performed by: [facility], [address] [place] [address], [place] [address] CLIA ID: [id number] POCT glucose meter Result Date: 07/31/2023 Performed by: [facility], [address] [place] [address], [place] [address] CLIA ID: [id number] POCT glucose meter Result Date: 07/31/2023 Performed by: [facility], [address] [place] [address], [place] [address] CLIA ID: [id number] POCT glucose meter Result Date: 07/31/2023 Performed by: [facility], [address] [place] [address], [place] [address] CLIA ID: [id number] POCT glucose meter Result Date: 07/31/2023 Performed by: [facility], [address] [place] [address], [place] [address] CLIA ID: [id number] POCT glucose meter Result Date: 07/31/2023 [facility]formed by: [facility], [address] [place] [address], [place] [address] CLIA ID: [id number] POCT glucose meter Result Date: 07/31/2023 Performed by: [facility], [address] [place] [address], [place] [address] CLIA ID: [id number] POCT glucose meter Result Date: 07/31/2023 Performed by: [facility], [facility] [address] CLIA ID: [id number] POCT glucose meter Result Date: 07/31/2023 Performed by: [facility], [address] [place] [address] CLIA ID: [id number] Transthoracic echocardiogram (TTE) complete with contrast, bubble, [...] glucose meter Result Date: 07/31/2023 [facility]formed by: [facility] [facility], [address] [place] [address] CLIA ID: [id number] POCT glucose meter Result Date: 07/31/2023 Performed by: [facility], [address] [place] [address] CLIA ID: [id number] POCT glucose meter Result Date: 07/31/2023 Performed by: [facility], [address] [place] [address] CLIA ID: [id number] POCT glucose meter Result Date: 07/31/2023 Performed by: [facility], [address] [place] [address] CLIA ID: [id number] FL GUIDANCE OR USE ONLY - NON RESULTABLE Result Date: 07/31/2023 There is no interpretation needed for this exam. ECG 12 lead Sinus tachycardia IVCD, consider LBBB Electronically Signed On 07-31-2023 06:14:25 EDT by Emilie Nicole POCT glucose meter Result Date: 07/31/2023 Performed by: [facility], [address] [place] [address] CLIA ID: [id number] XR chest 1 view Result Date: 07/31/2023 [...] distal tip coursing subdiaphragmatically and beyond the vecvp-cq-cinu. Cardiac leads project over the chest, somewhat [...] glucose meter Result Date: 07/31/2023 Performed by: [facility] [place] [facility], [address] [place] [address] CLIA ID: [id number] POCT glucose meter Result Date: 07/31/2023 Performed by: [facility] [place] [facility], [address] [facility] [address] CLIA ID: [id number] XR chest 1 view Result Date: 07/31/2023 [...] IV contrast Result Date: 07/31/2023 Patient Name: SALZAAR COYLE : 1950 Exam Date/Time: 07/31/2023 00:27 [...] to portions of the patient outside the qttoz-aq-pdbg and associated beam hardening artifact. TECHNIQUE: Contiguous [...] Date: 07/31/2023 Performed by: [facility], [address] [place] [address] CLIA ID: [id number] ECG 12 lead Sinus or ectopic atrial [...] Date: 07/31/2023 Performed by: [facility], [address] [place] [address] CLIA ID: [id number] POCT glucose meter Result Date: 07/31/2023 Performed by: [facility], [address] [place] [address] CLIA ID: [id number] POCT glucose meter Result Date: 07/31/2023 Performed by: [facility] [place] [facility], [address] [place] [address] CLIA ID: [id number] POCT arterial blood gas Result Date: 07/31/2023 Performed by: [facility], [address] [place] [address] CLIA ID: [id number] POCT glucose meter Result Date: 07/30/2023 Performed by: [facility] [place] [facility], [address] [place] [address] CLIA ID: [id number] POCT glucose meter Result Date: 07/30/2023 Performed by: [facility] [place] [facility], [address] [place] [address] CLIA ID: [id number] POCT venous blood gas Result Date: 07/30/2023 Performed by: [facility], [address] [place] [address] CLIA ID: [id number] POCT glucose meter Result Date: 07/30/2023 Performed by: [facility], [address] [place] [address] CLIA ID: [id number] CT head wo IV contrast Result Date: 07/30/2023 [facility] COYLE : 1950 [id number] Exam Date/Time: 07/30/2023 14:19 Procedure: CT HEAD [...] blood gas Result Date: 07/30/2023 Performed by: [facility], [address] [facility] [address] CLIA ID: [id number] POCT glucose meter Result Date: 07/30/2023 [facility]formed by: [facility] [place] [facility], [address] [facility] [address] CLIA ID: [id number] History/Other: Past Medical History: Past Medical History: [...] not included. Speech-Language Pathology SPEECH LANGUAGE PATHOLOGY [facility] Dysphagia Treatment Note Patient Name: Salazar Coyle [...] determine need for further testing. Continue acute MEDICARE NURSE therapy per initial plan of care and established goals. D/C Recommendations: to be determined Education Education Given: swallowing strategies Given To: patient Response: needs reinforcement Goals Patient Stated Goal: To lay down. Encounter Problems Encounter Problems (Active) Swallowing Patient will tolerate recommended food and liquid consistencies without clinical signs and symptoms of aspirations (Progressing) Start: 08/06/23 Expected End: 08/13/23 Therapy Time MEDICARE NURSE Individual Minutes Time In: 1425 Time Out: 1441 Minutes: 16 NADIRA Newton [facility] Progress Note Subjective/ 72 [...] Pulse: 84 83 79 90 Resp: 16 Temp: 36.7 C (98.1 F) TempSrc: [...] excellent Noted plan for ICU transfer to [facility] D/w RN and Dr Garner ICU Will follow Thank you for the consult and the opportunity to participate in the care of this patient. Please do not hesitate to call with any questions or concerns. Ana Frost APRN, DIRECTOR PROFESSIONAL SERVICES [facility], [facility] [phone] office Associated attestation - Sarita Centeno MD - 08/07/2023 2:16 PM EDT I have reviewed the above assessment and plan with the SET UP AND LAY OUT INSPECTOR. I agree with above note. Renal function [...] is a 72 y.o. female living at [facility] for 24 hour care and supervision, has been resident there since 2021. PMHx includes, CVA, TIA, primarily bed bound at baseline, dementia, Afib, DM, PHOEBE, chronic jose due to neurogenic bladder, anxiety, depression, chronic pain. Brought to [facility] for encephalopathy had been given AM pills [...] other systems were reviewed and are negative. [place] Symptom Assessment Score [place] Score Pain Score 0 Tiredness Score 0 [...] Assessed by: patient and provider. Social history: Home status: no Marital status: Living status: long-term Work history: not empolyed Family Meeting: (if [...] Last Vitals: BP MAP (!) 123/106 (08/07/23 0602) 113 (08/07/23601) Arterial BP MAP Temp 36.7 C (98.1 F) (08/07/23 0302) Pulse 90 (08/07/23601) Resp 16 (08/07/23 06) SpO2 97 % (08/07/23601) Weight (!) 159 kg (350 lb) (07/31/23 0905) BMI Body mass index is 58.24 kg/m . I/O: 08/05 0700 - 08/06 658 In: 1208 [P.O.:500; I.V.:608] Out: 3155 [Urine:3155] [...] Normal [] Scar/Lesion/Mass Inspection of teeth/lips/gums Dentition: []Three Affiliated Teeth []Dentures Lips/Gums: []Intact []Lesion Present Mucosa: [][place] []Moist [x]Dry Neck: External Appearance Overall Appearance: [...] 3.5 3.7 -- -- LFTs: Recent Labs 08/05/23 0343 08/06/23 0425 08/07/23 0313 AST 17 19 22 [...] 14.6 ABGs: No results for input(s): "PHART", "WNO2CRJ", "PO2ART", "MGT1CSG", "SO2ART", "H1NWYNPJ" in the last 72 hours. Lactic Acid: [...] off 1.2- 1.5, risk of need for GRID TRIMMER/transplant 0.33% in next 2 years and 1.1% [...] and Reason for Visit: Reassess Nutrition Recommendations/Plan: MEDICARE NURSE recommending: Regular diet with thin liquids Per MNT Protocol, liberalized diet to: Regular, Mi-nznoq-gljl, 4 carbohydrate choices/60 g CHO per meal [...] deltoids) Fluid Accumulation: Moderate to Severe Extremities Synthetic Gem Press Operator Strength: Not Performed Nutrition Assessment: 72 year old woman who presented with encephalopathy and septic shock secondary to UTI. Underwent s/p cystoscopy with ureteral stent placement 07/30. Remained intubated post procedure, passed SBTs /3, 4, and 08/04 and was extubated on 08/04. Previously meeting nutrition needs 08/01-08/03 via EN. Course has been complicated by incidental finding biliary ductal dilation and possible choledocholithias- GI and GenSurg evaluated, no plans for acute surgical intervention at this time. MEDICARE NURSE recs Regular Diet with thin liquids this morning. Eager to eat. Nephrology continues to follow for CKD stage IIIb and volume overload, continues on IV Lasix for diuresis. ID continues to follow and manage antibiotics: continues on merrem through 08/16/23 Estimated Daily Nutrient Needs: Energy Requirements Based On: Kcal/kg Weight Used for Energy Requirements: [place] Weight for Energy Calculation (kg): 57 kg Total Energy Requirements (kcals/day): 7713-5973 (22-25 kcal/kg IBW) Weight Used for Protein Requirements: [place] Weight in Kg Used for Protein Requirements: [...] 140 kg (308 lb 8 oz) (per [facility] Records: 303# April 2023; 299# may 2023; 311# June 2023; 308.5# 07/05/23) % Weight Change (Calculated): 13.5 [place] Body Weight (lbs) (Calculated): 125 lbs [place] Body Weight (Kg) (Calculated): 57 kg % [place] Body Weight (Calculated): 280 % BMI (kg/m2) [...] Plan of Care discussed with: Multi-disciplinary rounds; MEDICARE NURSE and patient Goals: Previous Goal Met: Progressing [...] current diet Angie Ramirez RDN, LDN, Contact: *[phone] [facility] Nephrology Progress Note Subjective/ 72 y.o. year [...] any questions or concerns. Ana Frost APRN, DIRECTOR PROFESSIONAL SERVICES [facility], [facility] [phone] office Associated attestation - Sarita Centeno MD - 08/06/2023 6:40 PM EDT I have reviewed the above assessment and plan with the SET UP AND LAY OUT INSPECTOR. I agree with above note. Department of Internal Medicine Division of Endocrinology, Diabetes, & Metabolism Endocrinology Note Patient Name: Salazar Coyle : 1950 AGE: 72 y.o. Room/Bed: [facility]09/222-09 Admission Date: 07/30/2023 Visit Date: 08/06/2023 Reason for Endocrine Consult: Hyperglycemia requiring insulin GGT, on steroids and tube feeds Provider/Team Requesting Consult: Dr. Del Real PCP: Paige Rivera, DO Outpt Membership Counselor: Yes Dr. Woods ASSESSMENT: Type II Diabetes [...] exchange at this time. Patient arrived to [facility] ED for altered mental status. Cystoscopy, [...] lisinopril 10 mg, Oral, Daily nystatin (Mycostatin) 316022 UNIT/GM powder No dose, route, or frequency [...] 5-30 Units/kg/hr, Last Rate: 10 Units/kg/hr (08/06/23602) PRN Meds:PRN medications: [Held by provider] acetaminophen [...] found for: "CHOLHDLRATIO" No results found for: "LJEL65YMY" No results found for: "TSH", "Q4LNTRM", "V2XXOGA", "THYROIDAB" Radiology reportsas per the Radiologist Radiology: POCT glucose meter Result Date: 07/31/2023 Performed by: [facility], [address] [place] [address], [place] [address] CLIA ID: [id number] POCT glucose meter Result Date: 07/31/2023 Performed by: [facility], [address] [place] [address], [place] [address] CLIA ID: [id number] POCT glucose meter Result Date: 07/31/2023 Performed by: [facility], [address] [place] [address], [place] [address] CLIA ID: [id number] POCT glucose meter Result Date: 07/31/2023 Performed by: [facility], [address] [place] [address], [place] [address] CLIA ID: [id number] POCT glucose meter Result Date: 07/31/2023 Performed by: [facility], [address] [place] [address], [place] [address] CLIA ID: [id number] POCT glucose meter Result Date: 07/31/2023 Performed by: [facility], [address] [place] [address], [place] [address] CLIA ID: [id number] POCT glucose meter Result Date: 07/31/2023 Performed by: [facility], [address] [place] [address], [place] [address] CLIA ID: [id number] POCT glucose meter Result Date: 07/31/2023 Performed by: [facility], [address] [place] [address], [place] [address] CLIA ID: [id number] POCT glucose meter Result Date: 07/31/2023 Performed by: [facility], [address] [place] [address], [place] [address] CLIA ID: [id number] POCT glucose meter Result Date: 07/31/2023 Performed by: [facility], [address] [place] [address], [place] [address] CLIA ID: [id number] POCT glucose meter Result Date: 07/31/2023 Performed by: [facility], [address] [place] [address], [place] [address] CLIA ID: [id number] POCT glucose meter Result Date: 07/31/2023 Performed by: [facility], [address] [place] [address] CLIA ID: [id number] POCT glucose meter Result Date: 07/31/2023 Performed by: [facility], [address] [place] [address] CLIA ID: [id number] Transthoracic echocardiogram (TTE) complete with contrast, bubble, [...] glucose meter Result Date: 07/31/2023 Performed by: [facility], [address] [place] [address] CLIA ID: [id number] POCT glucose meter Result Date: 07/31/2023 Performed by: [facility], [address] [place] [address] CLIA ID: [id number] POCT glucose meter Result Date: 07/31/2023 Performed by: [facility], [address] [place] [address] CLIA ID: [id number] POCT glucose meter Result Date: 07/31/2023 Performed by: [facility], [address] [place] [address] CLIA ID: [id number] [place] GUIDANCE OR USE ONLY - NON RESULTABLE Result Date: 07/31/2023 There is no interpretation needed for this exam. ECG 12 lead Sinus tachycardia IVCD, consider LBBB Electronically Signed On 07-31-2023 06:14:25 EDT by Emilie Nicole POCT glucose meter Result Date: 07/31/2023 Performed by: [facility], [address] [place] [address] CLIA ID: [id number] XR chest 1 view Result Date: 07/31/2023 [...] distal tip coursing subdiaphragmatically and beyond the jiiox-dv-rhnh. Cardiac leads project over the chest, somewhat [...] glucose meter Result Date: 07/31/2023 Performed by: [facility], [address] [place] [address] CLIA ID: [id number] POCT glucose meter Result Date: 07/31/2023 Performed by: [facility], [address] [facility] [address] CLIA ID: [id number] XR chest 1 view Result Date: 07/31/2023 [...] to portions of the patient outside the bcohj-hu-drrq and associated beam hardening artifact. TECHNIQUE: Contiguous [...] glucose meter Result Date: 07/31/2023 Performed by: [facility] [place] [facility], [address] [place] [address] CLIA ID: [id number] ECG 12 lead Sinus or ectopic atrial [...] glucose meter Result Date: 07/31/2023 Performed by: [facility] [place] [facility], [address] [place] [address] CLIA ID: [id number] POCT glucose meter Result Date: 07/31/2023 Performed by: [facility] [place] [facility], [address] [place] [address] CLIA ID: [id number] POCT glucose meter Result Date: 07/31/2023 Performed by: [facility] [place] [facility], [address] [place] [address] [place] [address] CLIA ID: [id number] POCT arterial blood gas Result Date: 07/31/2023 Performed by: [facility] [place] [facility], [address] [place] [address] CLIA ID: [id number] POCT glucose meter Result Date: 07/30/2023 Performed by: [facility] [place] [facility], [address] [place] [address] CLIA ID: [id number] POCT glucose meter Result Date: 07/30/2023 Performed by: [facility] [place] [facility], [address] [place] [address] CLIA ID: [id number] POCT venous blood gas Result Date: 07/30/2023 Performed by: [facility] [place] [facility], [address] [place] [address] CLIA ID: [id number] POCT glucose meter Result Date: 07/30/2023 Performed by: [facility], [address] [place], [place] [id number] CLIA ID: [id number] CT head wo IV contrast Result Date: [...] blood gas Result Date: 07/30/2023 Performed by: [facility], [address] [facility] [address] CLIA ID: [id number] POCT glucose meter Result Date: 07/30/2023 [facility] [place] [facility], [address] [facility] [address] CLIA ID: [id number] History/Other: Past Medical History: Past Medical History: [...] not included. Speech-Language Pathology SPEECH LANGUAGE PATHOLOGY [facility] Bedside Swallow Evaluation Patient Name: Salazar Coyle Evaluation Date: 08/06/2023 Date of : 1950 Admission Date: 07/30/2023 1:00 PM Age: 72 y.o. Room/Bed: 222-/222 A IMPRESSION: No s/s oropharyngeal dysphagia. No overt clinical s/s pulmonary compromise with PO. Risk factors for aspiration include recent intubation-07/29-08/04, sepsis. RECOMMENDATION: Recommend Regular solids and Thin liquids as tolerate and meds as tolerated and the following precautions: - Upright positioning for all PO intake - single bites Pt would benefit from skilled acute MEDICARE NURSE services to address assess prandial tolerance. Frequency: [...] be evaluated. Dysphagia History: No history of MEDICARE NURSE services in EMR with retrospective chart review Baseline Diet: Regular thin at [facility] Current Diet: Dietary Orders (From admission, onward) [...] Diagnosis Date Noted Edema 04/11/2021 Severe sepsis (HCC) 07/30/2023 Radicular pain in right arm 01/08/2023 Ureteropelvic junction calculus 08/07/2022 WHITLEY (acute kidney injury) ([facility]) 08/07/2022 Chronic venous stasis 08/07/2022 Inflammatory reaction due to indwelling ureteral stent, initial encounter ([facility]) 08/02/2022 Septic shock ([facility]) 06/09/2022 Hypertension 04/15/2021 Hyperlipemia 04/15/2021 Cognitive decline 04/15/2021 Morbid obesity with BMI of 60.0-69.9, adult ([facility]) 04/15/2021 Chronic indwelling Jose catheter 04/15/2021 Foot ulcer ([facility]) 04/13/2021 Wounds, multiple 04/11/2021 PAF (paroxysmal atrial fibrillation) ([facility]) 04/11/2021 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 ([facility]) 04/11/2021 Hyperglycemia 04/11/2021 CKD (chronic kidney disease) 04/11/2021 Asymptomatic bacteriuria 04/11/2021 Anemia 04/11/2021 Bladder spasm 03/08/2021 Type 2 diabetes mellitus with hyperglycemia ([facility]) 03/08/2021 Degenerative disc disease, cervical 03/08/2021 Chronic pain 03/08/2021 Osteoarthrosis 03/08/2021 Recurrent UTI 03/08/2021 Cerebrovascular accident ([facility]) 03/08/2021 History of Present Illness: 72-year-old female [...] No oral residue. Mild anterior loss with MEDICARE NURSE feeding. Timing of tipping the cup. Switched [...] Start: 08/06/23 Expected End: 08/13/23 Therapy Time MEDICARE NURSE Individual Minutes Time In: 1005 Time Out: 1021 Minutes: [address] [facility] - Surgery [facility] Physicians Surgery Patient Name: Salazar Coyle [...] chart review was performed. Adis Dukes MD [facility] General Surgery 1:22 PM 08/06/2023 GENERAL SURGERY [...] diet from surgical standpoint once evaluated by MEDICARE NURSE - Medical mgmt per primary team Disposition: [...] (08/06/23734) Weight (!) 159 kg (350 lb) (07/31/23904) BMI Body mass index is 58.24 kg/m . I/O: 08/04 699 - 08/05 658 In: 1645.1 [I.V.:781.1] Out: 4525 [Urine:4525] Ventilator: [...] Normal [] Scar/Lesion/Mass Inspection of teeth/lips/gums Dentition: []Three Affiliated Teeth []Dentures Lips/Gums: []Intact []Lesion Present Mucosa: [][place] []Moist [x]Dry Neck: External Appearance Overall Appearance: [...] 14.6 ABGs: No results for input(s): "PHART", "JRB2IBW", "PO2ART", "NBX2LBU", "SO2ART", "N3RRYFQG" in the last 72 hours. Lactic Acid: [...] DVT Prophylaxis: Full anticoagulation Disposition: Transfer to [facility] this afternoon if stable Critical Care Time: 35 min Total critical care time caring for this patient with life threatening, unstable organ failure, including direct patient contact, management of life support systems, review of data including imaging and labs, discussions with other team members and physicians, excluding procedures. [facility]phrology Progress Note Subjective/ 72 [...] 5 mg/hr, Last Rate: 5 mg/hr (08/05/23 0760) heparin, 5-30 Units/kg/hr, Last Rate: 12 Units/kg/hr [...] improving. . Hypokalemia better. D/w RN. Sarita Centeno MD [facility] Images from the original note were not included. [facility] - Infectious Diseases Attending Progress Note [...] -- -- 90 (!) 10 98 % 08/04/232101 122/59 -- -- 85 16 98 % [...] but alert. Labs: Recent Labs 08/03/23 0015 08/03/23 0348 08/03/23 1439 08/04/23 0330 08/04/23 1515 08/05/23 0343 08/05/23 1505 NA 141 140 < [...] in this interval not displayed. Recent Labs 08/03/23 0348 08/04/23 0330 08/04/23 1515 08/05/23 0343 WBC 5.4 3.6 5.1 6.0 HGB 8.2* 7.7* 7.5* 7.8* HCT 25.7* 23.9* 23.8* 24.1* PLT 72* 71* 88* 103* LYMPHOPCT 12.1* 23 -- 46* MONOPCT 6.4 12 -- 4* BASOPCT 0.2 1 -- 1 NEUTROABS 4.3 -- -- -- Micro: No results for input(s): "COVID19" in the last 72 hours. Collected Updated Procedure Result Status 08/02/202325808/04/2023 [facility] Blood culture Site #1 - Assess for effectiveness of treatment [[id number]] Blood, Venous Preliminary result Component Value Blood Culture No growth at 48 hours P 08/02/2023 0259 08/04/2023 [facility] Blood culture Site #2 - Assess for effectiveness of treatment [[id number]] Blood, Venous Preliminary result Component Value Blood Culture No growth at 48 hours P Collected Updated Procedure Result Status 08/01/2023 0416 08/01/2023 1036 MRSA by PCR [[id number]] ESwab from Nasal Final result Component Value Staphylococcus aureus Not Detected mecA gene Not Detected 08/01/2023 0415 08/01/2023 1236 Respiratory culture and Stain [[id number]] Sputum Preliminary result Component Value Respiratory culture Culture in progress P Gram Stain Result Few Polymorphonuclear leukocytes per low power field P Few Epithelial cells per low power field P No organisms seen P 08/01/2023 0415 08/01/2023 1320 Pneumonia PCR Panel [[id number]] (Abnormal) Sputum Final result Component Value Staphylococcus [...] 07/30/2023 2153 07/30/2023 2316 SARS-CoV-2 by PCR [[id number]] Swab from Nasopharynx Final result Component Value SARS-CoV-2 Not Detected 07/30/2023 1652 08/01/2023 1102 Urine culture [[id number]] (Abnormal) Urine, Clean Catch Preliminary result Component Value Urine Culture Normal urogenital gaby present P 50,000-90,000 CFU/mL Escherichia coli Abnormal P 07/30/2023 1607 07/30/2023 1619 Occult blood x 1, stool [[id number]] Stool from Per Rectum Final result Component Value Fecal occult blood Negative 07/30/2023 1337 08/01/2023 1501 Blood culture Site #1 - Suspected Infection [[id number]] Blood, Venous Preliminary result Component Value Blood Culture No growth at 48 hours P 07/30/2023 1337 08/01/2023 0611 Blood culture Site #2 - Suspected Infection [[id number]] (Abnormal) Blood, Venous Preliminary result Component Value Blood Culture Gram-negative bacilli Panic P 07/30/2023 1337 08/01/2023 0611 Blood Culture Identification - Anaerobic [[id number]] (Abnormal) Blood, Venous Final result Component Value Escherichia coli Detected Abnormal CTX-M (ESBL gene) Detected Abnormal Lines: RIJ Radiography/Echo/Other: XR chest 1 view [[id number]] Collected: 08/01/23720 Order Status: Completed Updated: 08/01/23724 [...] GUIDANCE OR USE ONLY - NON RESULTABLE [[id number]] Resulted: 07/31/23634 Order Status: Completed Updated: 07/31/23634 Narrative: There is no interpretation needed for this exam. XR chest 1 view [[id number]] Collected: 07/31/23501 Order Status: Completed Updated: 07/31/23505 Narrative: [facility] 1950 [id number] Exam Date/Time: 07/31/2023 04:56 Procedure: XR CHEST [...] distal tip coursing subdiaphragmatically and beyond the fwxuk-mi-okqp. Cardiac leads project over the chest, somewhat [...] 5:05 AM EDT XR chest 1 view [[id number]] Collected: 07/31/23 0245 Order Status: Completed Updated: [...] EDT CT abdomen pelvis wo IV contrast [[id number]] Collected: 07/31/234 Order Status: Completed Updated: 07/31/23235 [...] to portions of the patient outside the ddjaq-ul-oavz and associated beam hardening artifact. TECHNIQUE: Contiguous [...] AM EDT CT head wo IV contrast [[id number]] Collected: 07/30/231448 Order Status: Completed Updated: 07/30/231451 Narrative: [facility]AZAR COYLE : 1950 [id number] Exam Date/Time: 07/30/2023 14:19 Procedure: CT HEAD [...] 2:51 PM EDT XR chest 1 view [[id number]] Collected: 07/30/23 1403 Order Status: Completed Updated: 07/30/231419 Narrative: Patient Name: SALAZAR COYLE : 1950 [facility]#: [id number] Exam Date/Time: 07/30/2023 14:01 Procedure: XR CHEST [...] for open encounter. Family Communication Number Called: [phone] Name of Designated Family Senior Tax Accountant: Deidra Vang Relationship: daughter Phone Call Outcome: I left a HIPPA compliant message at the number listed above. Family Senior Tax Accountant Updated on the Following: Hospital course [facility] - Surgery [facility] Physicians Surgery Patient Name: Salazar Coyle Patient seen and examined by myself 08/05/2023 (late entry) and I agree with LEONIDAS note below Patient remains intubated, but more [...] proceed with plan. Anibal Huff APRN - DIRECTOR PROFESSIONAL SERVICES 08/05/23 0543 Wean Screen SpO2>/=88% Yes FiO2</=50% [...] Infusions:fentaNYL, 25-200 mcg/hr, Last Rate: Stopped (08/05/23 075) furosemide (Lasix) 100 mg in sodium chloride 0.9 % 100 mL (1 mg/mL) infusion, 5 mg/hr, Last Rate: 5 mg/hr (08/05/23 0741) heparin, 5-30 Units/kg/hr, Last Rate: 12 Units/kg/hr (08/05/23 043) propofol, 5-50 mcg/kg/min, Last Rate: Stopped (08/05/23751) Objective: Last Vitals: BP MAP 121/54 (08/05/233) 74 (08/05/233) Arterial BP MAP Temp 36.9 C (98.4 F) (08/05/233) Pulse 89 (08/05/23417) Resp 16 (08/05/23417) SpO2 99 % (08/05/23417) Weight (!) 159 kg (350 lb) (07/31/23 09) BMI Body mass index is 58.24 kg/m . I/O: 08/03 07 - 08/04 658 In: 3203 [I.V.:1083] Out: [...] Normal [] Scar/Lesion/Mass Inspection of teeth/lips/gums Dentition: []Three Affiliated Teeth []Dentures Lips/Gums: []Intact []Lesion Present Mucosa: [][place] []Moist []Dry Neck: External Appearance Overall Appearance: [...] last 24 hours- BMP: Recent Labs 08/04/23 0330 08/04/23 15108/05/23 0343 NA 140 141 143 K 4.0 3.5 4.0 CL 105 106 105 CO2 27 28 29 BUN 71* 73* 74* CREATININE 1.15* 1.16* 1.09* CALCIUM 8.3* 8.6 8.8 MG 2.1 2.1 2.1 PHOS 3.1 3.1 2.9 LFTs: Recent Labs 08/03/23 0348 08/04/23 03308/05/23 034 AST 18 15 17 ALT 15 13 [...] 08/03/23 0015 PROCAL 17.21* CBC: Recent Labs 08/04/23 03308/04/23 15108/05/23342 WBC 3.6 5.1 6.0 HGB 7.7* 7.5* 7.8* HCT 23.9* 23.8* 24.1* PLT 71* 88* 103* MCV 105.3* 106.7* 106.2* RDW 14.4 14.4 14.5 ABGs: No results for input(s): "PHART", "ZAC9PGR", "PO2ART", "EVA2HUJ", "SO2ART", "O0WPAQCR" in the last 72 hours. Lactic Acid: [...] wounds Palliative following, family has concerns about exterminator care GI Prophylaxis: Pepcid IV DVT Prophylaxis: [...] with SBT - No exclusion criteria met [facility] Nephrology Progress Note Subjective/ 72 y.o. year [...] improving. D/w Dr. Bonilla. Hypokalemia improving. D/w RN. Sarita Centeno MD [facility] Family Communication Number Called: [phone] Name of Designated Family Senior Tax Accountant: Deidra Vang Relationship: daughter Phone Call Outcome: I spoke with the individual listed above. Family Senior Tax Accountant Updated on the Following: Hospital course The [...] reviewed with the patient. CBC: Recent Labs 08/02/2342108/03/2334708/04/23 0330 WBC 8.2 5.4 3.6 HGB 8.7* 8.2* 7.7* HCT 26.4* 25.7* 23.9* PLT 74* 72* 71* HEPATIC: Recent Labs 08/03/2334708/04/23 0330 AST 18 15 ALT 15 13 [...] nl). Will sign off, available if needed [facility] - Surgery [facility] Physicians Surgery Patient Name: Salazar Coyle [...] chart review was performed. Adis Dukes MD [facility] General Surgery 1:12 PM 08/04/2023 GENERAL SURGERY [...] proceed with plan. Anibal Huff APRN - DIRECTOR PROFESSIONAL SERVICES Images from the original note were not included. [facility] - Infectious Diseases Attending Progress Note [...] in this interval not displayed. Recent Labs 08/02/2342108/03/2334708/04/23 0330 WBC 8.2 5.4 3.6 HGB 8.7* 8.2* 7.7* HCT 26.4* 25.7* 23.9* PLT 74* 72* 71* LYMPHOPCT 7* 12.1* 23 MONOPCT 1* 6.4 12 BASOPCT -- 0.2 1 NEUTROABS -- 4.3 -- Micro: No results for input(s): "COVID19" in the last 72 hours. Collected Updated Procedure Result Status 08/02/202325808/04/2023800 Blood culture Site #1 - Assess for effectiveness of treatment [[id number]] Blood, Venous Preliminary result Component Value Blood Culture No growth at 48 hours P 08/02/2023 02508/04/2023800 Blood culture Site #2 - Assess for effectiveness of treatment [[id number]] Blood, Venous Preliminary result Component Value Blood Culture No growth at 48 hours P Collected Updated Procedure Result Status 08/01/2023 0416 08/01/2023 1036 MRSA by PCR [[id number]] ESwab from Nasal Final result Component Value Staphylococcus aureus Not Detected mecA gene Not Detected 08/01/2023 0415 08/01/2023 1236 Respiratory culture and Stain [[id number]] Sputum Preliminary result Component Value Respiratory culture Culture in progress P Gram Stain Result Few Polymorphonuclear leukocytes per low power field P Few Epithelial cells per low power field P No organisms seen P 08/01/2023 0415 08/01/2023 1320 Pneumonia PCR Panel [[id number]] (Abnormal) Sputum Final result Component Value Staphylococcus [...] 07/30/2023 2153 07/30/2023 2316 SARS-CoV-2 by PCR [[id number]] Swab from Nasopharynx Final result Component Value SARS-CoV-2 Not Detected 07/30/2023 1652 08/01/2023 1102 Urine culture [[id number]] (Abnormal) Urine, Clean Catch Preliminary result Component Value Urine Culture Normal urogenital gaby present P 50,000-90,000 CFU/mL Escherichia coli Abnormal P 07/30/2023 1607 07/30/2023 1619 Occult blood x 1, stool [[id number]] Stool from Per Rectum Final result Component Value Fecal occult blood Negative 07/30/2023 1337 08/01/2023 1501 Blood culture Site #1 - Suspected Infection [[id number]] Blood, Venous Preliminary result Component Value Blood Culture No growth at 48 hours P 07/30/2023 1337 08/01/2023 0611 Blood culture Site #2 - Suspected Infection [[id number]] (Abnormal) Blood, Venous Preliminary result Component Value Blood Culture Gram-negative bacilli Panic P 07/30/2023 1337 08/01/2023 0611 Blood Culture Identification - Anaerobic [[id number]] (Abnormal) Blood, Venous Final result Component Value Escherichia coli Detected Abnormal CTX-M (ESBL gene) Detected Abnormal Lines: RIJ Radiography/Echo/Other: XR chest 1 view [[id number]] Collected: 08/01/23720 Order Status: Completed Updated: 08/01/23724 [...] GUIDANCE OR USE ONLY - NON RESULTABLE [[id number]] Resulted: 07/31/23634 Order Status: Completed Updated: 07/31/23634 Narrative: There is no interpretation needed for this exam. XR chest 1 view [[id number]] Collected: 07/31/23501 Order Status: Completed Updated: 07/31/23505 [...] distal tip coursing subdiaphragmatically and beyond the milcx-ex-bsas. Cardiac leads project over the chest, somewhat [...] 5:05 AM EDT XR chest 1 view [[id number]] Collected: 07/31/23244 Order Status: Completed Updated: 07/31/23251 [...] EDT CT abdomen pelvis wo IV contrast [[id number]] Collected: 07/31/23223 Order Status: Completed Updated: 07/31/23235 Narrative: [facility] COYLE : 1950 [id number] Exam Date/Time: 07/31/2023 00:27 Procedure: CT ABDOMEN [...] to portions of the patient outside the nytwe-al-ckyn and associated beam hardening artifact. TECHNIQUE: Contiguous [...] AM EDT CT head wo IV contrast [[id number]] Collected: 07/30/23 1449 Order Status: Completed Updated: [...] 2:51 PM EDT XR chest 1 view [[id number]] Collected: 07/30/23 1403 Order Status: Completed Updated: [...] 0307) Objective: Last Vitals: BP MAP 128/78 (08/04/23 06) 94 (08/04/23601) Arterial BP MAP Temp 37.1 C (98.7 F) (08/04/23 0310) Pulse 86 (08/04/23601) Resp 15 (08/04/23601) SpO2 100 % (08/04/23 06) Weight (!) 159 kg (350 lb) (07/31/23 [...] Normal [] Scar/Lesion/Mass Inspection of teeth/lips/gums Dentition: []Three Affiliated Teeth []Dentures Lips/Gums: []Intact []Lesion Present Mucosa: [][place] []Moist []Dry Neck: External Appearance Overall Appearance: [...] within last 24 hours- BMP: Recent Labs 08/03/2334708/03/23 14308/04/23 0330 NA 140 142 140 K 4.0 [...] 14.4 ABGs: Recent Labs 08/02/23424 PHART 7.417 RPO9KEK 38.5 PO2ART 87.1 GJV3WXA 24.8 SO2ART 96.8 Lactic Acid: No results [...] wounds Palliative following, family has concerns about exterminator care GI Prophylaxis: Pepcid IV DVT Prophylaxis: Full anticoagulation Disposition: Remain in ICU Status Critical Care Time: 35 min Total critical care time caring for this patient with life threatening, unstable organ failure, including direct patient contact, management of life support systems, review of data including imaging and labs, discussions with other team members and physicians, excluding procedures. Pharmacy Vancomycin Consult Follow-Up Note Non-GRID TRIMMER Patients Current Dosin q 12 CREATININE Date [...] normal vital signs. Family Communication Number Called: [phone] Name of Designated Family Senior Tax Accountant: Deidra Vang Relationship: daughter Phone Call Outcome: I spoke with the individual listed above. Family Senior Tax Accountant Updated on the Following: Hospital course Department of Internal Medicine Division of Endocrinology, Diabetes, & Metabolism Endocrinology Note Patient Name: Salazar Coyle : 1950 AGE: 72 y.o. Room/Bed: 222 A Admission Date: 07/30/2023 Visit Date: 08/03/2023 Reason for Endocrine Consult: Hyperglycemia requiring insulin GGT, on steroids and tube feeds Provider/Team Requesting Consult: Dr. Del Real PCP: Paige Rivera, Outpt Membership Counselor: Yes Dr. Woods ASSESSMENT: Type II Diabetes [...] exchange at this time. Patient arrived to [facility] ED for altered mental status. Cystoscopy, left ureteral stent placement completed 07/31/2023 Type of DM: 2 Onset of DM: Home DM Medication Regimen: Lantus 10 units nightly Humalog 3 units 3 times daily before meals DM control (last A1c/glucose data): Lab Results Component Value Date HGBA1C 9.0 (H) 07/30/2023 Today- Glucose levels as below Insulin drip was discontinued by ICU team on 5 pm Was started on humalog insulin q [...] lisinopril 10 mg, Oral, Daily nystatin (Mycostatin) [id number] UNIT/GM powder No dose, route, or frequency [...] Infusions:fentaNYL, 25-200 mcg/hr, Last Rate: Stopped (08/03/23 08) heparin, 5-30 Units/kg/hr, Last Rate: 11 Units/kg/hr (08/03/23 0855) norepinephrine, 1-100 mcg/min, Last Rate: Stopped (08/01/23 1530) propofol, 5-50 mcg/kg/min, Last Rate: Stopped (08/03/23 0830) PRN Meds:PRN medications: [Held by provider] acetaminophen [...] found for: "CHOLHDLRATIO" No results found for: "VMJM14IHR" No results found for: "TSH", "A6KDLKK", "M0XMCZD", "THYROIDAB" Radiology reportsas per the Radiologist Radiology: POCT glucose meter Result Date: 07/31/2023 Performed by: [facility], [address], [place] [address] CLIA ID: [id number] POCT glucose meter Result Date: 07/31/2023 Performed by: [facility] [place] [facility], [address] [place] [address], [place] [address] CLIA ID: [id number] POCT glucose meter Result Date: 07/31/2023 Performed by: [facility], [address] [place] [address], [place] [address] CLIA ID: [id number] POCT glucose meter Result Date: 07/31/2023 Performed by: [facility], [address] [place] [address], [place] [address] CLIA ID: [id number] POCT glucose meter Result Date: 07/31/2023 Performed by: [facility] [place] [facility], [address] [place] [address], [place] [address] CLIA ID: [id number] POCT glucose meter Result Date: 07/31/2023 Performed by: [facility] [place] [facility], [address] [place] [address], [place] [address] CLIA ID: [id number] POCT glucose meter Result Date: 07/31/2023 Performed by: [facility], [address] [place] [address], [place] [address] CLIA ID: [id number] POCT glucose meter Result Date: 07/31/2023 Performed by: [facility] [place] [facility], [address] [place] [address], [place] [address] CLIA ID: [id number] POCT glucose meter Result Date: 07/31/2023 Performed by: [facility] [place] [facility], [address] [place] [address], [place] [address] CLIA ID: [id number] POCT glucose meter Result Date: 07/31/2023 Performed by: [facility], [address] [place] [address] CLIA ID: [id number] POCT glucose meter Result Date: 07/31/2023 Performed by: [facility], [address] [place] [address] CLIA ID: [id number] POCT glucose meter Result Date: 07/31/2023 Performed by: [facility], [address] [place] [address] CLIA ID: [id number] POCT glucose meter Result Date: 07/31/2023 Performed by: [facility], [address] [place] [address] CLIA ID: [id number] Transthoracic echocardiogram (TTE) complete with contrast, bubble, [...] meter Result Date: 07/31/2023 Performed by: [facility], [address] [place] [address] CLIA ID: [id number] POCT glucose meter Result Date: 07/31/2023 Performed by: [facility], [address] [place] [address] CLIA ID: [id number] POCT glucose meter Result Date: 07/31/2023 Performed by: [facility], [address] [place] [address] 84727 CLIA ID: [id number] POCT glucose meter Result Date: 07/31/2023 Performed by: [facility], [address] [place] [address] 65141 CLIA ID: [id number] [place] GUIDANCE OR USE ONLY - NON RESULTABLE Result Date: 07/31/2023 There is no interpretation needed for this exam. ECG 12 lead Sinus tachycardia IVCD, consider LBBB Electronically Signed On 07-31-2023 06:14:25 EDT by Emilie Nicole POCT glucose meter Result Date: 07/31/2023 Performed by: [facility], [address] [place] [address] 37262 CLIA ID: [id number] XR chest 1 view Result Date: 07/31/2023 [...] distal tip coursing subdiaphragmatically and beyond the hlikq-he-klyc. Cardiac leads project over the chest, somewhat [...] 07/31/2023 Performed by: [facility], [address] [facility] [address] CLIA ID: [id number] POCT glucose meter Result Date: 07/31/2023 Performed by: [facility], [address] [place] [address] CLIA ID: [id number] XR chest 1 view Result Date: 07/31/2023 [...] to portions of the patient outside the vwdzf-gv-gwxy and associated beam hardening artifact. TECHNIQUE: Contiguous [...] glucose meter Result Date: 07/31/2023 Performed by: [facility], [address] [place] [address]190 CLIA ID: [id number] ECG 12 lead Sinus or ectopic atrial [...] glucose meter Result Date: 07/31/2023 Performed by: [facility], [address] [place] [address] 495[address] CLIA ID: [id number] POCT glucose meter Result Date: 07/31/2023 Performed by: [facility], [address] [place] [address] CLIA ID: [id number] POCT glucose meter Result Date: 07/31/2023 Performed by: [facility], [address] [place] [address] 11680 CLIA ID: [id number] POCT arterial blood gas Result Date: 07/31/2023 Performed by: [facility], [address] [place] [address] 46631 CLIA ID: [id number] POCT glucose meter Result Date: 07/30/2023 Performed by: [facility], [address] [place] [address]67 CLIA ID: [id number] POCT glucose meter Result Date: 07/30/2023 Performed by: [facility], [address] [facility] [address] CLIA ID: [id number] POCT venous blood gas Result Date: 07/30/2023 Performed by: [facility], [address] [facility] [address] CLIA ID: [id number] POCT glucose meter Result Date: 07/30/2023 [facility] by: [facility], [address] [facility] [address] CLIA ID: [id number] CT head wo IV contrast Result Date: [...] blood gas Result Date: 07/30/2023 [facility]formed by: [facility], [address] [place] [address] CLIA ID: [id number] POCT glucose meter Result Date: 07/30/2023 Performed by: [facility], [address] [place] [address] CLIA ID: [id number] History/Other: Past Medical History: Past Medical History: Diagnosis Date A-fib (CMS/HCC) (HCC) Anemia Diabetes ([facility]) Lymphedema Obesity Past Surgical History: History reviewed. [...] visit. Electronically signed by Fatuma Ramirez MSN, CANOE INSPECTOR FINAL, SETTER UP-C, CDECS Certified Diabetes Care and Education Specialistr [...] deltoids) Fluid Accumulation: Moderate to Severe Extremities Synthetic Gem Press Operator Strength: Not Performed Nutrition Assessment: 72 year [...] On: Kcal/kg Weight Used for Energy Requirements: [place] Weight for Energy Calculation (kg): 57 kg Total Energy Requirements (kcals/day): 0291-9270 (22-25 kcal/kg IBW) Weight Used for Protein Requirements: [place] Weight in Kg Used for Protein Requirements: 57 kg Estimated Total Protein (g/day): 86-114 (1.5-2.0 g protein/kg IBW) Estimated Daily Total Fluid (ml/day): per MD Nutrition Related Findings: +3 BLE, +mild BUE edema noted. Alex score=12. +IO with a dose of diuretic [...] 140 kg (308 lb 8 oz) (per [facility] Records: 303# April 2023; 299# may 2023; 311# June 2023; 308.5# 07/05/23) % Weight Change (Calculated): 13.6 [place] Body Weight (lbs) (Calculated): 125 lbs [place] Body Weight (Kg) (Calculated): 57 kg % [place] Body Weight (Calculated): 280.4 % BMI (kg/m2) [...] to determine Angie Ramirez RDN, LDN, Contact: *[phone] ICU Progress Note Name: Salazar Coyle : [...] 25-200 mcg/hr, Last Rate: 75 mcg/hr (08/02/23 2340) heparin, 5-30 Units/kg/hr, Last Rate: 11 Units/kg/hr (08/03/23 0855) norepinephrine, 1-100 mcg/min, Last Rate: Stopped (08/01/23 1530) propofol, 5-50 mcg/kg/min, Last Rate: 5 mcg/kg/min (08/03/23 0221) Objective: Last Vitals: BP MAP 127/62 (08/03/23 0701) 79 (08/03/23 0701) Arterial BP MAP Temp 36.8 C (98.3 F) (08/03/23 0337) Pulse 86 (08/03/23 0848) Resp 16 (08/03/23 0848) SpO2 100 % (08/03/23 0848) Weight (!) 159 kg (350 lb) (07/31/23 0905) BMI Body mass index is 58.24 kg/m . I/O: 08/01 07 - 08/02 0559 In: 2512 [I.V.:1298] Out: 1874 [Urine:1874] Ventilator: Ventilation Day(s): 2 Resp Rate (Set): [...] Normal [] Scar/Lesion/Mass Inspection of teeth/lips/gums Dentition: []Three Affiliated Teeth []Dentures Lips/Gums: []Intact []Lesion Present Mucosa: [][place] []Moist []Dry Neck: External Appearance Overall Appearance: [...] within last 24 hours- BMP: Recent Labs 08/02/23194108/03/231408/03/23 0348 NA 141 141 140 K 4.1 4.0 4.0 CL 106 105 103 CO2 25 27 25 BUN 67* 70* 67* CREATININE 1.41* 1.27* 1.36* CALCIUM 8.4 8.4 8.3* MG 2.1 2.0 2.1 PHOS 3.1 3.2 3.3 LFTs: Recent Labs 08/01/23 0608/01/23193608/03/23 0348 AST 21 23 18 ALT 16 17 15 PROT 5.8* 5.7* 5.7* ALBUMIN 3.2* 3.0* 3.2* BILITOT 0.8 0.6 0.5 ALKPHOS 81 73 59 Glucose: Recent Labs 08/01/23 1152 08/01/23 1153 08/01/23193608/01/23195708/02/23 0128 08/02/23 0202 08/02/23 0745 08/02/23 0817 08/02/23 1330 08/02/23 1432 08/02/23 1737 08/02/23 1832 08/02/23 19308/02/23 19408/02/23 2036 08/02/23 2134 08/02/23 22308/02/23233608/03/23 0015 08/03/23 0348 08/03/23 0528 GLUCOSE 117* [...] 0015 PROCAL 50.38* 17.21* CBC: Recent Labs 08/01/23 0600 08/02/23 0422 08/03/23 0348 WBC 19.7* 8.2 5.4 HGB 8.8* 8.7* 8.2* HCT 26.6* 26.4* 25.7* PLT 95* 74* 72* MCV 103.5* 103.9* 104.9* RDW 14.8 14.6 14.6 ABGs: Recent Labs 08/02/23424 PHART 7.417 IFL8OGE 38.5 PO2ART 87.1 LON6VWN 24.8 SO2ART 96.8 Lactic Acid: Recent Labs [...] 30 8. Failed SBT yesterday, tolerating PS 5/8 today. PCR positive for torres and rhino/enterovirus. [...] excluding procedures. Pharmacy Vancomycin Consult Follow-Up Note Non-GRID TRIMMER Patients Current Dosin q 24 CREATININE Date [...] exclusion criteria met Family Communication Number Called: [phone] Name of Designated Family Senior Tax Accountant: Deidra Vang Relationship: daughter Phone Call Outcome: I spoke with the individual listed above. Family Senior Tax Accountant Updated on the Following: Hospital course ICU [...] 1-50 Units/hr, Last Rate: 10 Units/hr (08/02/23 08) norepinephrine, 1-100 mcg/min, Last Rate: Stopped [...] Normal [] Scar/Lesion/Mass Inspection of teeth/lips/gums Dentition: []Three Affiliated Teeth []Dentures Lips/Gums: []Intact []Lesion Present Mucosa: [][place] []Moist []Dry Neck: External Appearance Overall Appearance: [...] within last 24 hours- BMP: Recent Labs 08/01/23 1937 08/02/23 0128 08/02/23 0745 NA 140 139 139 [...] interval not displayed. Glucose: Recent Labs 07/30/23 1830 07/30/23 1924 07/31/23 1148 07/31/23 1206 07/31/23 1748 [...] 0003 PROCAL 28.53* 50.38* CBC: Recent Labs 08/01/23 0003 08/01/23 0608/02/23 0422 WBC 21.5* 19.7* 8.2 HGB 9.0* 8.8* 8.7* HCT 27.8* 26.6* 26.4* PLT 96* 95* 74* MCV 103.3* 103.5* 103.9* RDW 14.8 14.8 14.6 ABGs: Recent Labs 07/31/23 0001 08/02/23 042 PHART 7.317* 7.417 NXU5POR 37.4 38.5 PO2ART 138.0* 87.1 VVD9TQR 19.1* 24.8 SO2ART 98.9 96.8 Lactic Acid: Recent Labs 07/31/23 1945 08/01/23 0003 08/01/23 0415 LACTATE 2.6* 2.2* 1.8 INR: Recent Labs 07/31/23 0508 08/01/23 0608/02/23 0422 INR 1.2* 1.1 1.1 Cardiac Injury [...] wounds Palliative care consulted for assistance with residential goals of care GI Prophylaxis: Pepcid IV [...] from the original note were not included. [facility] - Infectious Diseases Attending Progress Note [...] 08/01/2023 0416 08/01/2023 1036 MRSA by PCR [[id number]] ESwab from Nasal Final result Component Value Staphylococcus aureus Not Detected mecA gene Not Detected 08/01/2023 0415 08/01/2023 1236 Respiratory culture and Stain [[id number]] Sputum Preliminary result Component Value Respiratory culture Culture in progress P Gram Stain Result Few Polymorphonuclear leukocytes per low power field P Few Epithelial cells per low power field P No organisms seen P 08/01/2023 0415 08/01/2023 1320 Pneumonia PCR Panel [[id number]] (Abnormal) Sputum Final result Component Value Staphylococcus [...] 07/30/2023 2153 07/30/2023 2316 SARS-CoV-2 by PCR [[id number]] Swab from Nasopharynx Final result Component Value SARS-CoV-2 Not Detected 07/30/2023 1652 08/01/2023 1102 Urine culture [[id number]] (Abnormal) Urine, Clean Catch Preliminary result Component Value Urine Culture Normal urogenital gaby present P 50,000-90,000 CFU/mL Escherichia coli Abnormal P 07/30/2023 1607 07/30/2023 1619 Occult blood x 1, stool [[id number]] Stool from Per Rectum Final result Component Value Fecal occult blood Negative 07/30/2023 1337 08/01/2023 1501 Blood culture Site #1 - Suspected Infection [[id number]] Blood, Venous Preliminary result Component Value Blood Culture No growth at 48 hours P 07/30/2023 1337 08/01/2023 0611 Blood culture Site #2 - Suspected Infection [[id number]] (Abnormal) Blood, Venous Preliminary result Component Value Blood Culture Gram-negative bacilli Panic P 07/30/2023 1337 08/01/2023 0611 Blood Culture Identification - Anaerobic [[id number]] (Abnormal) Blood, Venous Final result Component Value Escherichia coli Detected Abnormal CTX-M (ESBL gene) Detected Abnormal Lines: RIJ Radiography/Echo/Other: XR chest 1 view [[id number]] Collected: 08/01/23720 Order Status: Completed Updated: 08/01/23724 [...] GUIDANCE OR USE ONLY - NON RESULTABLE [[id number]] Resulted: 07/31/23634 Order Status: Completed Updated: 07/31/23634 Narrative: There is no interpretation needed for this exam. XR chest 1 view [[id number]] Collected: 07/31/23501 Order Status: Completed Updated: 07/31/23505 Narrative: [facility] 1950 [id number] Exam Date/Time: 07/31/2023 04:56 Procedure: XR CHEST [...] distal tip coursing subdiaphragmatically and beyond the rwasa-kh-sjoi. Cardiac leads project over the chest, somewhat [...] 5:05 AM EDT XR chest 1 view [[id number]] Collected: 07/31/23 0245 Order Status: Completed Updated: [...] EDT CT abdomen pelvis wo IV contrast [[id number]] Collected: 07/31/23223 Order Status: Completed Updated: 07/31/23235 [...] to portions of the patient outside the gymrs-jv-xvhf and associated beam hardening artifact. TECHNIQUE: Contiguous [...] AM EDT CT head wo IV contrast [[id number]] Collected: 07/30/23 1449 Order Status: Completed Updated: [...] 2:51 PM EDT XR chest 1 view [[id number]] Collected: 07/30/23 1403 Order Status: Completed Updated: [...] for open encounter. Family Communication Number Called: [phone] Name of Designated Family Senior Tax Accountant: Deidra Vang Relationship: daughter Phone Call Outcome: I spoke with the individual listed above. Family Senior Tax Accountant Updated on the Following: Hospital course Antifungal [...] Infusions:fentaNYL, 25-200 mcg/hr, Last Rate: Stopped (08/01/23 075) heparin, 5-30 Units/kg/hr, Last Rate: 7 Units/kg/hr (08/01/23 0744) insulin regular, 1-50 Units/hr, Last Rate: 7 Units/hr (08/01/23 07) norepinephrine, 1-100 mcg/min, Last Rate: 6 mcg/min [...] Normal [] Scar/Lesion/Mass Inspection of teeth/lips/gums Dentition: []Three Affiliated Teeth []Dentures Lips/Gums: []Intact []Lesion Present Mucosa: [][place] []Moist []Dry Neck: External Appearance Overall Appearance: [...] 3.2 3.0 LFTs: Recent Labs 07/30/23 1652 07/30/23 2248 07/31/23 0508 07/31/23 1748 08/01/23 0600 AST -- [...] this interval not displayed. Procal: Recent Labs 07/30/23182908/01/23 0003 PROCAL 28.53* 50.38* CBC: Recent Labs 07/31/23 1543 08/01/23 0003 08/01/23 0600 WBC 26.5* 21.5* 19.7* HGB 9.4* 9.0* 8.8* HCT 28.2* 27.8* 26.6* PLT 107* 96* 95* MCV 103.7* 103.3* 103.5* RDW 15.0 14.8 14.8 ABGs: Recent Labs 07/31/23 0001 PHART 7.317* GAC3FXA 37.4 PO2ART 138.0* KGN8RIO 19.1* SO2ART 98.9 Lactic Acid: Recent Labs [...] LOC. Pt able to follow commands. Dr Mccray aware Sedation on hold for SBT Pharmacy Vancomycin Consult Follow-Up Note Non-GRID TRIMMER Patients Current Dosinmg Q24 CREATININE Date Value [...] from the original note were not included. [facility] Urology Inpatient Progress Note 07/31/2023 at [...] patient's urologic status. Julio Cesar Velazquez, AMRIT, CANOE INSPECTOR FINAL, [facility] Urology Subjective: Patient postop day #0 status [...] portions of this chart were dictated using [employer] voice recognition software. It is possible that typos and/or omissions and/or substitutions of words and/or phrases may exist, which may alter the intended meaning of the dictating provider. Family Communication Number Called: [phone], Name of Designated Family Senior Tax Accountant: Jesus Lu Relationship: daughter, spouse Phone Call Outcome: I left a HIPPA compliant message at the number listed above. Family Senior Tax Accountant Updated on the Following: Images from the original note were not included. OCCUPATIONAL THERAPY [facility] Name/MRN: Salazar Coyle ([id number]) Date: 07/31/2023 Chart review completed, per documentation pt is bedbound and is total A for Adls. Pt is not appropriate for acute therapies. Will complete current orders. Sana Urbina OT Images from the original note were not included. PHYSICAL THERAPY [facility] Name/MRN: Salazar Coyle ([id number]) Date: 07/31/2023 Chart reviewed. Pt bedbound at [...] regular, 1-50 Units/hr, Last Rate: 6 Units/hr (07/31/23 0646) norepinephrine, 1-100 mcg/min, Last Rate: 16 mcg/min (07/31/23 06) sodium bicarbonate 150 mEq in dextrose 5 % 1,000 mL infusion, 75 mL/hr, Last Rate: 75 mL/hr (07/31/23 0553) Objective: Last Vitals: BP MAP (!) 81/40 (07/31/23 0541) 52 (07/31/23540) Arterial BP MAP Temp (!) 38.1 C (100.5 F) (07/31/23 0302) Pulse 76 (07/31/23540) Resp 17 (07/31/23540) SpO2 100 % (07/31/23540) Weight (!) 159 kg (350 lb) (07/30/23 1612) BMI Body mass index is 56.52 kg/m . I/O: 07/29 699 - 07/30 658 In: 4314.5 [I.V.:1764.5] Out: 210 [Urine:210] Ventilator: [...] Normal [] Scar/Lesion/Mass Inspection of teeth/lips/gums Dentition: []Three Affiliated Teeth []Dentures Lips/Gums: []Intact []Lesion Present Mucosa: [][place] []Moist []Dry Neck: External Appearance Overall Appearance: [...] LFTs: Recent Labs 07/30/23 1337 07/30/23 1652 07/30/238 07/31/23 0508 AST 62* -- 37 30 ALT [...] this interval not displayed. Procal: Recent Labs 07/30/231829 PROCAL 28.53* CBC: Recent Labs 07/30/23133607/30/23224707/31/23 0508 WBC 13.9* 20.1* 16.2* HGB 11.3* 10.7* 9.5* HCT 35.2 33.0* 29.4* PLT 183 136* 100* MCV 106.3* 107.1* 105.4* RDW 14.4 14.7 14.6 ABGs: Recent Labs 07/31/23 0001 PHART 7.317* CMV2NYO 37.4 PO2ART 138.0* GYC7YRF 19.1* SO2ART 98.9 Lactic Acid: Recent Labs 07/30/23182907/30/23224707/31/23 0227 LACTATE 4.0* 6.7* 6.8* INR: Recent Labs 07/31/23 0508 INR 1.2* Cardiac Injury Profile: Recent Labs 07/30/23224707/31/23 0157 07/31/23 0508 TROPONINI 0.772* 0.867* 0.881* [...] glide scope blade placed a #7.5@24 positive [id number], visual of vocal cords and bilateral breath sounds obtained. xray done and Ettube pulled back 1cm is now secured 23@lip with current vent settings of AC VC+,16,400,100,+8 documented in this encounter [facility] 08-09-2023 Hospital course Narrative Images from the [...] consultants for discharge. Patient discharged back to [facility] in improved and stable condition on 08/09/23. [...] Disposition: Patient discharged in stable condition to [facility] LABS: CBC: Recent Labs 08/07/2331208/08/232 08/09/23 0331 WBC 7.0 6.7 6.3 RBC 2.55* 2.68* 2.36* HGB 8.6* 8.9* 7.9* HCT 27.9* 29.2* 25.6* MCV 109.4* 109.0* 108.5* RDW 14.6 14.9 15.0 PLT 205 240 201 BMP: Recent Labs 08/07/2331208/08/232 08/09/23 0331 NA 144 144 140 K 3.7 3.8 [...] Commonly known as: Aricept MEROPENEM IV nystatin 093462 UNIT/GM powder Commonly known as: Mycostatin Oyster [...] Complexity: follow up within 7-14 calendar days (72591) [x] Severe Complexity: follow up within 7 calendar days (37402) Follow up Testing, Pending results or Referrals [...] frame. Signed: Paige Rivera DO [facility] In[facility] 08/09/2023, 10:33 AM Total time Spent on Discharge: 32 minutes documented in this encounter [facility] 08-09-2023 Hospital Discharge instructions Wai Spain RN - 08/09/2023 10:27 AM EDT Images from the original note were not included. Continuity of Care Form Patient Name: Salazar Coyle : 1950 Admit date: 07/30/2023 Discharge date: 08/09/2023 Code Status Order: Full Code Advance Directives: Y Admitting Physician: Maya Del Real DO PCP: Paige Rivera DO Discharging Nurse: Wai Spain Discharging Hospital Unit/Room#: 222-09/222-09 A Discharging Unit Phone Number: [phone] Emergency Contact: Extended Emergency Contact Information Primary Emergency Contact: Deidra Vang [address]: [address] [place] [address] Mobile Relation: Daughter Secondary Emergency Contact: Jesus Vang Mobile Relation: Spouse Preferred language: Swiss Neurosurgeon needed? No Past Surgical History: History reviewed. [...] calculus Overview Signed 08/07/2022 6:48 PM by Daecon Tariq MD Laser lithotripsy 07/2022 [place] (acute [...] Known to Doctor Izaguirre through consultation at [facility]. Long acting insulin: Insulin used for this [...] assistance Toileting Total assistance Feeding Total assistance Communications Editor Total assistance Med Delivery yes Wound Care [...] care 08/09/23 0800 Primary Dressing Xeroform 08/09/23 08 Dressing Status Reinforced 08/09/23 08 Number of days: 8 Wound/Incision 08/06/23 Skin Tear Hand Right;Dorsal (Active) Site Assessment Red 08/09/23 0800 [place]-Wound Assessment [place] 08/06/23 0735 Wound Length (cm) 1 cm [...] Adaptic 08/09/23 08 Dressing Status Reinforced 08/09/23 08 Number of days: 2 Wound/Incision 08/08/23 Traumatic [...] Therapies: physical therapy, occupational therapy, speech therapy, manager social services, and nursing Weight Bearing Status/Restrictions: no restriction Other Medical Equipment (for information only, NOT a DME order):patient lift, sliding board. Other Treatments: respiratory and nurses. Patient's personal belongings (please select all that are sent with patient): hearing aides bilateral and dentures upper and lower RN SIGNATURE: MANAGEMENT/SOCIAL WORK SECTION Inpatient Status Date: 07/30/2023 Readmission Risk Assessment Score: @READMISSIONRISKDETAILS@ Discharging to Facility/ Agency Name: [facility] Address: [place] [address] Fax: Dialysis Facility (if applicable) Name: Address: Dialysis Schedule: Phone: Fax: Iridologist/Automatic Punch Press Operator signature: ICIAN SECTION Prognosis: excellent Condition at Discharge: stable Rehab Potential (if transferring to Rehab): excellent Recommended Labs or Other Treatments After Discharge: none Physician Certification: I certify the above information and transfer of Salazar Coyle is necessary for the continuing treatment of the diagnosis listed and that she requires group home facility for less than 30 days. Update Admission H&P: No change in H&P PHYSICIAN SIGNATURE: The following attachments cannot be sent through Care Everywhere.Gallstones Discharge Instructions (Swiss)documented in this encounter [facility] 08-06-2023 Nurse Note Vital signs monitored throughout the procedure. Patient tolerated the procedure well. Patient transferred back to ICU following the procedure. Patient arrived from ICU for PICC line placement.Consent was obtained from the patient's family prior to th e patient's arrival to the interventional radiology department. Patient's lab values and allergies were reviewed. Patient was placed supine on exam table, prepped and draped in sterile fashion. Telemetry monitors were placed. documented in this encounter [facility] 08-04-2023 Consult note Associated Order (s): PHARMACY TO DOSE VANCO Vancomycin therapy has been discontinued by Dr. Petersen on 08/03. Thank you for the consult. Pharmacy signing off for vancomycin dosing. Stephanie Monique RPh, Date: 08/04/23 Time: 9:36 AM Associated Order(s): Inpatient consult to Gastroenterology--[facility] Images from the original note were not included. GI CONSULTATION Patient: Salazar Coyle : 1950 Primary Care Physician: Paige Rivera DO Inpatient consult to Gastroenterology--[facility] Consult performed by: Fatimah Guzman [...] mouth 3 times daily. 01/11/23 04/11/23 Paige Rviera DO insulin glargine (Lantus) 100 UNIT/ML injection [...] by mouth daily. Historical Provider, nystatin (Mycostatin) 248062 UNIT/GM powder 03/22/22 Historical Provider, senna-docusate ([place]-Colace) [...] been requested CBC: Recent Labs 08/01/23 0608/02/23 0422 08/03/23 0348 WBC 19.7* 8.2 5.4 HGB [...] 72 hours. INR: Recent Labs 08/01/23 0608/02/23 0422 INR 1.1 1.1 XR chest 1 view Result Date: 07/31/2023 [facility] 1950 [id number] Exam Date/Time: 07/31/2023 04:56 Procedure: XR CHEST [...] distal tip coursing subdiaphragmatically and beyond the lyrxm-qs-qdky. Cardiac leads project over the chest, somewhat [...] to portions of the patient outside the nziip-ys-wkaz and associated beam hardening artifact. TECHNIQUE: Contiguous [...] meter Result Date: 07/31/2023 Performed by: [facility], [address] [place] [address] CLIA ID: [id number] ECG 12 lead Sinus or ectopic atrial [...] 07/30/2023 [facility] Name: [facility]AR COYLE : 1950 [id number] Exam Date/Time: 07/30/2023 14:19 Procedure: CT HEAD [...] non- obstructing, nl lft. Possibly passeed stone, veterinary microbiologist ball-valve RECOMMENDATIONS: Trend lft Ercp vs repeat mri prior to d/c Associated Order(s): IP CONSULT TO GENERAL SURGERY Images from the original note were not included. [facility] - Surgery [facility] Physicians Surgery Patient Name: Salazar Coyle [...] chart review was performed. Adis Dukes MD [facility] General Surgery 5:35 PM 08/03/2023 Department of [...] by mouth daily. Historical Provider, nystatin (Mycostatin) 183158 UNIT/GM powder 03/22/22 Historical Provider, sengigi-docusate ([place]-Colace) 8.6-50 MG tablet Take 100 tablets [...] CT abdomen pelvis wo IV contrast Completed [id number] Created PACS Images Show images for CT [...] portion of the bowel extends beyond the kdfxa-tn-rnua due to patient body habitus. No bowel [...] CT abdomen pelvis wo IV contrast (Order #[id number]) on 08/03/2023 - Order Result History Report [...] data. No Salazar risk assessment data. No ARCHIVIST Request ID assessment data. No ARCHIVIST banquet server ID assessment data. Breast Cancer Risk Navigation [...] CT abdomen pelvis wo IV contrast (Order #[id number]) on 08/02/[address] abdomen pelvis wo IV contrast (Order #[id number]) on 08/02/23 CBC: Recent Labs 08/01/2359908/02/2342108/03/23347 WBC 19.7* 8.2 5.4 HGB 8.8* 8.7* 8.2* HCT 26.6* 26.4* 25.7* PLT 95* 74* 72* BMP: Recent Labs 08/02/23194108/03/231408/03/23347 NA 141 141 140 K 4.1 4.0 4.0 CL 106 105 103 CO2 25 27 25 BUN 67* 70* 67* CREATININE 1.41* 1.27* 1.36* GLUCOSE 106* 216* 234* Hepatic: Recent Labs 08/01/2359908/01/23193608/03/23 034 AST 21 23 18 ALT 16 17 15 BILITOT 0.8 0.6 0.5 ALKPHOS 81 73 59 Mag: Recent Labs 08/02/23194108/03/231408/03/23347 MG 2.1 2.0 2.1 Phos: Recent Labs 08/02/23194108/03/231408/03/23347 PHOS 3.1 3.2 3.3 INR: Recent Labs 08/01/2359908/02/23421 INR 1.1 1.1 IMPRESSION/RECOMMENDATIONS: Ms. Coyle is [...] you may have. Anibal Huff, ZINA - DIRECTOR PROFESSIONAL SERVICES Associated Order(s): IP CONSULT TO NEPHROLOGY [facility]phrology Consult Note Reason for [...] 10 mg by mouth daily. nystatin (Mycostatin) 696520 UNIT/GM powder senna-docusate (Helena-Colace) 8.6-50 MG tablet [...] Pulse: 94 89 87 91 Resp: 14 23 Temp: TempSrc: SpO2: 100% 100% 100% [...] sedated. Data: LIVER PROFILE: Recent Labs 08/01/23 0608/01/23193608/03/23 0348 AST 21 23 18 ALT 16 17 15 BILIDIR 0.0 0.0 0.0 BILITOT 0.8 0.6 0.5 ALKPHOS 81 73 59 CBC: Recent Labs 08/01/23 0608/02/2342108/03/23 0348 WBC 19.7* 8.2 5.4 RBC 2.57* 2.54* 2.45* HGB 8.8* 8.7* 8.2* HCT 26.6* 26.4* 25.7* MCV 103.5* 103.9* 104.9* RDW 14.8 14.6 14.6 PLT 95* 74* 72* BMP: Recent Labs 08/02/23194108/03/235 08/03/23 034 NA 141 141 140 K 4.1 4.0 [...] edema is baseline. -D/w Dr. Bonilla (attending communication arts lecturer) -Avoid nephrotoxins and contrast dye -Dose all [...] Coyle : 1950 AGE: 72 y.o. Room/Bed: [facility] A Admission Date: 07/30/2023 Visit Date: 08/02/2023 Reason for Endocrine Consult: Hyperglycemia requiring insulin GGT, on steroids and tube feeds Provider/Team Requesting Consult: Dr. Del Real PCP: Paige Rivera DO Outpt Membership Counselor: Yes Dr. Woods ASSESSMENT: Type II Diabetes [...] exchange at this time. Patient arrived to [facility] ED for altered mental status. Cystoscopy, [...] lisinopril 10 mg, Oral, Daily nystatin (Mycostatin) 913626 UNIT/GM powder No dose, route, or frequency [...] found for: "CHOLHDLRATIO" No results found for: "CYLF80TJV" No results found for: "TSH", "H5DZISV", "O5EJYFF", "THYROIDAB" Radiology reportsas per the Radiologist Radiology: POCT glucose meter Result Date: 07/31/2023 Performed by: [facility], [facility] [address], [place] [address] CLIA ID: [id number] POCT glucose meter Result Date: 07/31/2023 Performed by: [facility], [address] [place] [address], [place] [address] CLIA ID: [id number] POCT glucose meter Result Date: 07/31/2023 Performed by: [facility], [address] [place] [address], [place] [address] CLIA ID: [id number] POCT glucose meter Result Date: 07/31/2023 Performed by: [facility], [address] [place] [address], [place] [address] CLIA ID: [id number] POCT glucose meter Result Date: 07/31/2023 Performed by: [facility], [address] [place] [address], [place] [address] CLIA ID: [id number] POCT glucose meter Result Date: 07/31/2023 Performed by: [facility], [address] [place] [address], [place] [address] CLIA ID: [id number] POCT glucose meter Result Date: 07/31/2023 Performed by: [facility] [place] [facility], [address] [place] [address], [place] [address] CLIA ID: [id number] POCT glucose meter Result Date: 07/31/2023 Performed by: [facility], [address], [place] [address] CLIA ID: [id number] POCT glucose meter Result Date: 07/31/2023 Performed by: [facility], [address] [place] [address], [place] [address] CLIA ID: [id number] POCT glucose meter Result Date: 07/31/2023 Performed by: [facility], [address] [place] [address] CLIA ID: [id number] POCT glucose meter Result Date: 07/31/2023 Performed by: [facility], [address] [place] [address] CLIA ID: [id number] POCT glucose meter Result Date: 07/31/2023 Performed by: [facility], [address] [place] [address] CLIA ID: [id number] POCT glucose meter Result Date: 07/31/2023 Performed by: [facility], [address] [place] [address] CLIA ID: [id number] Transthoracic echocardiogram (TTE) complete with contrast, bubble, [...] meter Result Date: 07/31/2023 Performed by: [facility], [address] [place] [address] CLIA ID: [id number] POCT glucose meter Result Date: 07/31/2023 Performed by: [facility], [address] [place] [address] CLIA ID: [id number] POCT glucose meter Result Date: 07/31/2023 Performed by: [facility], [address] [place] [address] CLIA ID: [id number] POCT glucose meter Result Date: 07/31/2023 Performed by: [facility], [address] [place] [address] CLIA ID: [id number] [place] GUIDANCE OR USE ONLY - NON RESULTABLE Result Date: 07/31/2023 There is no interpretation needed for this exam. ECG 12 lead Sinus tachycardia IVCD, consider LBBB Electronically Signed On 07-31-2023 06:14:25 EDT by Emilie Nicole POCT glucose meter Result Date: 07/31/2023 Performed by: [facility], [address] [place] [address] CLIA ID: [id number] XR chest 1 view Result Date: 07/31/2023 [...] distal tip coursing subdiaphragmatically and beyond the vqobi-qu-htxb. Cardiac leads project over the chest, somewhat [...] Result Date: 07/31/2023 Performed by: [facility], [address] [facility] [address] CLIA ID: [id number] POCT glucose meter Result Date: 07/31/2023 Performed by: [facility], [address] [facility] [address] CLIA ID: [id number] XR chest 1 view Result Date: 07/31/2023 [...] to portions of the patient outside the vcxwv-gy-vdkg and associated beam hardening artifact. TECHNIQUE: Contiguous [...] glucose meter Result Date: 07/31/2023 Performed by: [facility], [address] [place] [address] CLIA ID: [id number] ECG 12 lead Sinus or ectopic atrial [...] glucose meter Result Date: 07/31/2023 Performed by: [facility] [place] [facility], [address] [place] [address] CLIA ID: [id number] POCT glucose meter Result Date: 07/31/2023 Performed by: [facility] [place] [facility], [address] [place] [address] CLIA ID: [id number] POCT glucose meter Result Date: 07/31/2023 Performed by: [facility], [address] [place] [address] CLIA ID: [id number] POCT arterial blood gas Result Date: 07/31/2023 Performed by: [facility] [place] [facility], [address] [place] [address] CLIA ID: [id number] POCT glucose meter Result Date: 07/30/2023 Performed by: [facility] [place] [facility], [address] [place] [address] CLIA ID: [id number] POCT glucose meter Result Date: 07/30/2023 Performed by: [facility], [address] [facility] [address] CLIA ID: [id number] POCT venous blood gas Result Date: 07/30/2023 Performed by: [facility], [address] [facility] [address] CLIA ID: [id number] POCT glucose meter Result Date: 07/30/2023 Performed by: [facility], [address] [facility] [address] CLIA ID: [id number] CT head wo IV contrast Result Date: [...] blood gas Result Date: 07/30/2023 Performed by: [facility], [address] [place] [address] CLIA ID: [id number] POCT glucose meter Result Date: 07/30/2023 Performed by: [facility], [address] [place] [address] CLIA ID: [id number] History/Other: Past Medical History: Past Medical History: [...] URGENT needs only please reach out to proposition player provider. Assessment/Plan Encephalopathy - underlying dementia - [...] ny Gay - call to Deidra at [phone], introduced myself and service, why consulted, has been followed by [facility] palliative at [facility] however has never had communication with that [...] is a 72 y.o. female living at [facility] for 24 hour care and supervision, has been resident there since 2021. PMHx includes, CVA, TIA, primarily bed bound at baseline, dementia, Afib, DM, PHOEBE, chronic jose due to neurogenic bladder, anxiety, depression, chronic pain. Brought to [facility] for encephalopathy had been given AM pills [...] other systems were reviewed and are negative. [place] Symptom Assessment Score [place] Score Pain Score 0 Tiredness Score 0 [...] Score: 0 Assessed by: provider. Social history: Home status: no Marital status: Living status: long-term Work history: not empolyed Advance Care Planning: [...] IP WOUND CARE NURSE CONSULT TO EV[facility] Wound Care CONSULT Note Salazar Coyle AGE: [...] 03/08/2021 Type 2 diabetes mellitus with hyperglycemia ([facility]) 03/08/2021 Wounds, multiple 04/11/2021 Degenerative disc disease, cervical 03/08/2021 Chronic pain 03/08/2021 Osteoarthrosis 03/08/2021 PAF (paroxysmal atrial fibrillation) ([facility]) 04/11/2021 Cognitive decline 04/15/2021 Morbid obesity with BMI of 60.0-69.9, adult ([facility]) 04/15/2021 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 ([facility]) 04/11/2021 Recurrent UTI 03/08/2021 Cerebrovascular accident ([facility]) 03/08/2021 Hyperglycemia 04/11/2021 Chronic indwelling Jose catheter 04/15/2021 CKD (chronic kidney disease) 04/11/2021 Asymptomatic bacteriuria 04/11/2021 Anemia 04/11/2021 Septic shock ([facility]) 06/09/2022 Inflammatory reaction due to indwelling ureteral stent, initial encounter ([facility]) 08/02/2022 Ureteropelvic junction calculus 08/07/2022 WHITLEY (acute kidney injury) ([facility]) 08/07/2022 Chronic venous stasis 08/07/2022 Radicular pain in right arm 01/08/2023 Resolved Ambulatory Problems Diagnosis Date Noted No Resolved Ambulatory Problems Past Medical History: Diagnosis Date A-fib ([facility]) ([facility]) Diabetes ([facility]) Lymphedema Obesity PAST SURGICAL HISTORY History reviewed. [...] 10 mg by mouth daily. nystatin (Mycostatin) [id number] UNIT/GM powder senna-docusate (Helena-Colace) 8.6-50 MG tablet [...] Care to follow Please follow up at [facility] wound care [place] after hospital discharge. Thank you for the [...] RD will follow. Pharmacy Note Vancomycin Consult Non-GRID TRIMMER Salazar Coyle is a 72 y.o. year old female ordered vancomycin for Sepsis; consult from Dr. Petersen to manage therapy. Patient Active Problem List Diagnosis Date Noted Edema 04/11/2021 Severe sepsis ([facility]) 07/30/2023 Radicular pain in right arm 01/08/2023 Ureteropelvic junction calculus 08/07/2022 WHITLEY (acute kidney injury) ([facility]) 08/07/2022 Chronic venous stasis 08/07/2022 Inflammatory reaction due to indwelling ureteral stent, initial encounter ([facility]) 08/02/2022 Septic shock ([facility]) 06/09/2022 Hypertension 04/15/2021 Hyperlipemia 04/15/2021 Cognitive decline 04/15/2021 Morbid obesity with BMI of 60.0-69.9, adult ([facility]) 04/15/2021 Chronic indwelling Jose catheter 04/15/2021 Foot ulcer ([facility]) 04/13/2021 Wounds, multiple 04/11/2021 PAF (paroxysmal atrial fibrillation) ([facility]) 04/11/2021 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 ([facility]) 04/11/2021 Hyperglycemia 04/11/2021 CKD (chronic kidney disease) 04/11/2021 Asymptomatic bacteriuria 04/11/2021 Anemia 04/11/2021 Bladder spasm 03/08/2021 Type 2 diabetes mellitus with hyperglycemia ([facility]) 03/08/2021 Degenerative disc disease, cervical 03/08/2021 Chronic pain 03/08/2021 Osteoarthrosis 03/08/2021 Recurrent UTI 03/08/2021 Cerebrovascular accident ([facility]) 03/08/2021 Ertapenem CREATININE Date Value Ref Range [...] ADAT following extubation and as recommended by MEDICARE NURSE. Diet at facility: Regular cs-bszcs-tois, yp-gsqautakybmk-kpiiak diet with thin liquids Should alternative nutrition [...] deltoids) Fluid Accumulation: Moderate to Severe Extremities Synthetic Gem Press Operator Strength: Not Performed Nutrition Assessment: 72 year old woman with PMHx: PHOEBE, DMII(A1C=9.0% on 07/30/23), Afib, anemia, lymphedema, +chronic jose dt neurogenic bladder. Most recently admitted to [facility] 01/08-01/11/23 with neck pain and weakness. +UTI. Imaging on admit indicative of DDD with moderate central canal stenosis through c-spine, +severe stenosis C4-C5. Not a candidate for surgical interventions. Refused to work with PT and OT and was discharged to SNF in stable con. She currently presents to [facility] from SNF with AMS and concerns for [...] On: Kcal/kg Weight Used for Energy Requirements: [place] Weight for Energy Calculation (kg): 57 kg Total Energy Requirements (kcals/day): 6723-7718 (22-25 kcal/kg IBW) Weight Used for Protein Requirements: [place] Weight in Kg Used for Protein Requirements: [...] 140 kg (308 lb 8 oz) (per [facility] Records: 303# April 2023; 299# may 2023; 311# June 2023; 308.5# 07/05/23) % Weight Change (Calculated): 13.6 [place] Body Weight (lbs) (Calculated): 125 lbs [place] Body Weight (Kg) (Calculated): 57 kg % [place] Body Weight (Calculated): 280.4 % BMI (kg/m2) [...] of Care discussed with: Dr Del Real, MATHEUS Goals: Goals: Initiate PO diet, within 2 days, Initiate nutrition support Nutrition Monitoring and Evaluation: Behavioral-Environmental Outcomes: None Identified Food/Nutrient Intake Outcomes: Diet Advancement/Tolerance Physical Signs/Symptoms Outcomes: Biochemical Data, GI Status, Weight, Hemodynamic Status, Fluid Status or Edema, Nutrition Focused Physical Findings, Skin, Nausea or Vomiting Discharge Planning: Too soon to determine Angie Ramirez RDN, LDN, Contact: *[phone] Associated Order(s): IP CONSULT TO INFECTIOUS DISEASES Images from the original note were not included. [facility] - Infectious Diseases Attending Consult Note Reason for Consult: Septic shock requiring pressor. History of Present Illness: 72 y/o female was admitted from an F with altered [...] mg IntraVENous q8h Reyna Calderón APRN - GUS 400 mL/hr at 07/31/23 1210 1,000 mg at 07/31/23 1210 [Held by provider] acetaminophen (Tylenol) tablet 650 mg 650 mg Oral q6h PRN Reyna Vazquez-FREDDY ReyesN - GUS Or [Held by provider] acetaminophen (Tylenol) suppository 650 mg 650 mg Rectal q6h PRN Reyna Vazquez-FREDDY ReyesN - DIRECTOR PROFESSIONAL SERVICES [Held by provider] apixaban (Eliquis) tablet 5 mg 5 mg Oral BID Reyna Calderón APRN - GUS ascorbic acid (Vitamin C) tablet 250 mg 250 mg Oral Daily Bashir Vásquez MD 250 mg at 07/31/23 0939 atorvastatin (Lipitor) tablet 20 mg 20 mg Oral Nightly Reyna Calderón APRN - GUS baclofen (Lioresal) tablet 5 mg 5 mg Oral TID Bashir Vásquez MD 5 mg at 07/31/23 0940 bisacodyl (Dulcolax) suppository 10 mg 10 mg Rectal BID Reyna Calderón APRN - GUS calcium gluconate 4,000 mg in sodium chloride 0.9 % 100 mL IVPB 4,000 mg IntraVENous Once Reyna Vazquez-Amy, CANOE INSPECTOR FINAL - GUS dextrose 5 % infusion 100 mL/hr IntraVENous PRN Reyna Vazquez-Amy, CANOE INSPECTOR FINAL - GUS dextrose 50 % solution 12.5 g 12.5 g IntraVENous PRN Reyna Vazquez-Amy, CANOE INSPECTOR FINAL - DIRECTOR PROFESSIONAL SERVICES Diclofenac Sodium (Voltaren) 1 % gel 4 g 4 g Topical BID Bashir Vásquez MD 4 g at 07/31/23 0938 donepezil (Aricept) tablet 10 mg 10 mg Oral Nightly Reyna Calderón, CANOE INSPECTOR FINAL - GUS famotidine (Pepcid) 20 mg in sodium chloride (PF) 0.9 % 10 mL injection 20 mg IntraVENous BID Reyna Calderón CANOE INSPECTOR FINAL - GUS 20 mg at 07/31/23 0938 fentaNYL (Sublimaze) 1000 mcg in sodium chloride 0.9 % 100 mL 10 mcg/mL infusion 25-200 mcg/hr IntraVENous Continuous Maya Del Real DO 7.5 mL/hr at 07/31/23 0730 75 mcg/hr at 07/31/23 0730 [Held by provider] gabapentin (Neurontin) capsule 200 mg 200 mg Oral TID Bashir Vásquez MD glucagon (human recombinant) injection 1 mg 1 mg IntraMUSCular PRN Reyna Calderón, CANOE INSPECTOR FINAL - GUS glucose oral gel 15 g 15 g Oral PRN Reyna Vazquez-Amy, CANOE INSPECTOR FINAL - DIRECTOR PROFESSIONAL SERVICES heparin 25,000 units in dextrose 5% 250mL infusion (premix) 5-30 Units/kg/hr IntraVENous Continuous Reyna Calderón, CANOE INSPECTOR FINAL - DIRECTOR PROFESSIONAL SERVICES Stopped at 07/31/23 0527 heparin injection 2,000 Units 2,000 Units IntraVENous PRN Reyna Vazquez-Amy, CANOE INSPECTOR FINAL - DIRECTOR PROFESSIONAL SERVICES heparin injection 4,000 Units 4,000 Units IntraVENous PRN Reyna Calderón, CANOE INSPECTOR FINAL - DIRECTOR PROFESSIONAL SERVICES Insulin Lispro (Humalog) injection 3 Units 3 Units SubCUTAneous TID WC Bashir Vásquez MD 3 Units at 07/31/23 1207 insulin regular 100 units in 100 mL NS (Myxredlin) infusion (premix) 1-50 Units/hr IntraVENous Continuous Reyna Vazquez-Amy CANOE INSPECTOR FINAL - DIRECTOR PROFESSIONAL SERVICES 13 mL/hr at 07/31/23 1208 13 Units/hr at 07/31/23 1208 ipratropium-albuterol (Duo-Neb) 0.5-2.5 mg/3 mL nebulizer solution 3 mL 3 mL Nebulization TID Reyna Vazquez-Amy, CANOE INSPECTOR FINAL - DIRECTOR PROFESSIONAL SERVICES 3 mL at 07/31/23 0900 labetalol (Normodyne,Trandate) injection 10 mg 10 mg IntraVENous q4h PRN Reyna Vazquez-Amy, CANOE INSPECTOR FINAL - DIRECTOR PROFESSIONAL SERVICES lidocaine (Uro-Jet) 2 % gel Topical Once Reyna Calderón APRN - GUS lisinopril tablet 10 mg 10 mg Oral Daily Bashir Vásquez MD 10 mg at 07/31/23 0939 meropenem (Merrem) 2,000 mg in sodium chloride 0.9 % 100 mL IVPB 2,000 mg IntraVENous q8h Reyna Calderón, CANOE INSPECTOR FINAL - DIRECTOR PROFESSIONAL SERVICES Stopped at 07/31/23 0111 miconazole (Micotin) 2 % powder Topical BID Reyna Calderón CANOE INSPECTOR FINAL - DIRECTOR PROFESSIONAL SERVICES Given at 07/31/23 0938 norepinephrine (Levophed) infusion 16 mg in 0.9 % sodium chloride 250 mL (Ujb-Nrasio-Imuxt) (premix) 1-100 mcg/min IntraVENous Continuous Maya Del Real DO 14.06 mL/hr at 07/31/23 1200 15 mcg/min at 07/31/23 1200 nystatin (Mycostatin) cream Topical BID Bashir Vásquez MD Given at 07/31/23 0938 ondansetron ODT (Zofran-ODT) disintegrating tablet 4 mg 4 mg Oral q8h PRN Reyna Calderón CANOE INSPECTOR FINAL - GUS Or ondansetron (Zofran) injection 4 mg 4 mg IntraVENous q6h PRN Reyna Vazquez-Amy, CANOE INSPECTOR FINAL - DIRECTOR PROFESSIONAL SERVICES oxymetazoline (Afrin) 0.05 % nasal spray 2 spray 2 spray Each Nostril Once Reyna Calderón CANOE INSPECTOR FINAL - GUS Petrolatum ointment Topical BID Reyna Berrodin-Amy, CANOE INSPECTOR FINAL - DIRECTOR PROFESSIONAL SERVICES Given at 07/31/23 0938 Phenylephrine HCl (Pressors) 1 MG/10ML injection - Pyxis ADS Override Pull polyethylene glycol (PEG) 3350 (Miralax) packet 17 g 17 g Oral Daily PRN Reyna Berrodin-Amy, CANOE INSPECTOR FINAL - DIRECTOR PROFESSIONAL SERVICES polyethylene glycol (PEG) 3350 (Miralax) packet 17 g 17 g Oral Daily Reyna Berrodin-Amy, CANOE INSPECTOR FINAL - DIRECTOR PROFESSIONAL SERVICES 17 g at 07/31/23 0941 senna-docusate sodium (Senokot-S) 8.6-50 MG tablet 2 tablet 2 tablet Oral BID Reyna Berrodin-Amy, CANOE INSPECTOR FINAL - DIRECTOR PROFESSIONAL SERVICES 2 tablet at 07/31/23 0940 sertraline (Zoloft) tablet 50 mg 50 mg Oral Daily Reyna Berrodin-Amy, CANOE INSPECTOR FINAL - DIRECTOR PROFESSIONAL SERVICES 50 mg at 07/31/23 0940 sodium bicarbonate 150 mEq in dextrose 5 % 1,000 mL infusion 75 mL/hr IntraVENous Continuous J Maria Fernanda Rogers MD 75 mL/hr at 07/31/23 0553 75 mL/hr at 07/31/23 0553 sodium chloride 0.9 % infusion 5-250 mL/hr IntraVENous PRN Reyna Berrodin-Amy, CANOE INSPECTOR FINAL - DIRECTOR PROFESSIONAL SERVICES sodium chloride 0.9% (NS) flush 10 mL 10 mL IntraVENous 2 times per day Reyna Berrodin-Amy, CANOE INSPECTOR FINAL - DIRECTOR PROFESSIONAL SERVICES 10 mL at 07/31/23 0941 sodium chloride 0.9% (NS) flush 10 mL 10 mL IntraVENous PRN Reyna Berrodin-Amy, CANOE INSPECTOR FINAL - DIRECTOR PROFESSIONAL SERVICES sodium chloride 0.9% (NS) flush 5-40 mL 5-40 mL IntraCATHeter q8h Reyna Berrodin-Amy, CANOE INSPECTOR FINAL - DIRECTOR PROFESSIONAL SERVICES 10 mL at 07/31/23 0943 sodium chloride 0.9% (NS) flush 5-40 mL 5-40 mL IntraVENous PRN Reyna Berrodin-Amy, CANOE INSPECTOR FINAL - DIRECTOR PROFESSIONAL SERVICES sodium chloride 0.9% (NS) flush 5-40 mL 5-40 mL IntraCATHeter q8h Maya Vijay-Irene, DO 10 mL at 07/31/23 1045 sodium chloride 0.9% (NS) flush 5-40 mL 5-40 mL IntraVENous PRN Maya Vijay-Irene, DO stomahesive in petrolatum (ET Mix) Topical q8h Reyna VazquezUriel, CANOE INSPECTOR FINAL - DIRECTOR PROFESSIONAL SERVICES 1 Application at 07/30/23 2341 vasopressin (Vasostrict) 20 units in dextrose 5% 100 mL infusion 0.01-0.03 Units/min IntraVENous Continuous Maya Del Real DO Allergies: Allergies Allergen Reactions Ertapenem Patient [...] (5' 5") (!) 159 kg (350 lb) 07/31/23900 (!) 102/36 -- -- 86 16 100 % -- -- 07/31/23 0847 (!) 98/43 -- -- 88 16 100 % -- -- 07/31/23 0832 (!) 8553 -- -- 86 17 100 % -- -- 07/31/23 0817 (!) 99/35 36.8 C (98.2 F) Oral 87 20 100 % -- -- 07/31/23 0813 (!) 8950 -- -- 85 16 100 % -- -- 07/31/23 0801 (!) 85/38 -- -- 89 16 100 % -- -- 07/31/23 0747 (!) 82/41 -- -- 85 23 100 % -- -- 07/31/23 0732 106/52 -- -- 90 21 100 % -- -- 07/31/23 0727 (!) 120/49 -- -- 90 18 100 % -- -- 07/31/23 0541 (!) 81/40 -- -- 76 17 100 % -- -- 07/31/231 (!) 112/44 -- -- 114 (!) 27 100 % -- -- 07/31/239 -- -- -- 108 21 100 % -- -- 07/31/236 112/56 -- -- 111 18 100 % -- -- 07/31/235 112/56 -- -- 115 22 100 % -- -- 07/31/234 (!) 105/42 -- -- 108 18 100 % -- -- 07/31/23 0429 (!) 114/48 -- -- 98 22 100 % -- -- 07/31/237 (!) 113/44 -- -- 100 19 100 [...] -- -- 97 19 -- -- -- 07/30/239 -- -- -- 101 -- 100 % -- -- 07/30/232301 133/69 -- -- 103 16 99 % -- -- 07/30/232246 -- -- -- 101 19 (!) 86 % -- -- 07/30/232226 (!) 146/45 37.8 C (100.1 F) Oral 99 17 97 % -- -- 07/30/232202 (!) 166/44 -- -- 100 19 96 % -- -- 07/30/232 (!) 153/60 -- -- 98 17 97 [...] 07/30/2023 2153 07/30/2023 2316 SARS-CoV-2 by PCR [[id number]] Swab from Nasopharynx Final result Component Value SARS-CoV-2 Not Detected 07/30/2023 1652 07/30/2023 1706 Urine culture [[id number]] Urine, Clean Catch In process Component Value No component results 07/30/2023 1607 07/30/2023 1619 Occult blood x 1, stool [[id number]] Stool from Per Rectum Final result Component Value Fecal occult blood Negative 07/30/2023 1337 07/30/2023 1601 Blood culture Site #1 - Suspected Infection [[id number]] Blood, Venous Preliminary result Component Value Blood Culture Blood culture incubation started P 07/30/2023 1337 07/30/2023 1601 Blood culture Site #2 - Suspected Infection [[id number]] Blood, Venous Preliminary result Component Value Blood Culture Blood culture incubation started P Lines: RIJ Radiography/Echo/Other: Procedure Component Value Units Date/Time FL GUIDANCE OR USE ONLY - NON RESULTABLE [[id number]] Resulted: 07/31/23634 Order Status: Completed Updated: 04/30/24 0635 Narrative: There is no interpretation needed for this exam. XR chest 1 view [[id number]] Collected: 07/31/23 0502 Order Status: Completed Updated: [...] distal tip coursing subdiaphragmatically and beyond the kking-jn-lqmm. Cardiac leads project over the chest, somewhat [...] 5:05 AM EDT XR chest 1 view [[id number]] Collected: 07/31/23 0245 Order Status: Completed Updated: [...] EDT CT abdomen pelvis wo IV contrast [[id number]] Collected: 07/31/23223 Order Status: Completed Updated: 07/31/23235 [...] to portions of the patient outside the [id number]-ux-ndop and associated beam hardening artifact. TECHNIQUE: Contiguous [...] AM EDT CT head wo IV contrast [[id number]] Collected: 07/30/23 1449 Order Status: Completed Updated: [...] 2:51 PM EDT XR chest 1 view [[id number]] Collected: 07/30/23 1403 Order Status: Completed Updated: [...] 10 mg by mouth daily. nystatin (Mycostatin) 247106 UNIT/GM powder senna-docusate (Helena-Colace) 8.6-50 MG tablet [...] infection, failure of treatment,need for additional procedures, [place], stroke, embolus, DVT and . Patient understands. Informed consent obtained. documented in this encounter [facility] 07-31-2023 Procedure note Associated Ord er(s): Central [...] documented as signed by this procedure note Biological Science Technician Fish(s): N/A No supervision required documented in this encounter [facility] 07-30-2023 Emergency department Note Report called to WIND TURBINE ENGINEER. Kami Oquendo RN 07/30/232205 Dr Lemon notified face to face about concern for changes in pts VS and condition. Pt now tachycardic and hypertensive. Shivering upon checking on her. Warm blankets provided. Slight mottling noted to R arm. Dr Lemon bedside to assess pt. Will obtain rectal temp Kami Oquendo RN 07/30/23 194 Pt arrived with chronic jose in place. [...] cleansing and turns. Kami Oquendo RN 07/30/23 3734 Kami Oquendo RN 07/30/23 2216 EMERGENCY DEPARTMENT [...] 10 mg by mouth daily. nystatin (Mycostatin) 246182 UNIT/GM powder senna-docusate (Helena-Colace) 8.6-50 MG tablet [...] Physically Abused: No Sexually Abused: No SCREENINGS Varinder Coma Scale Best Eye Response: To verbal [...] positive Coronavirus (not SARS-CoV-2) result on the [employer] Pneumonia PCR Panel should be taken in the context of other clinical data as increased false positive detection has been noted by the telecommunications network engineer. Consider collecting a nasopharyngeal sample for the [...] Detected (*) Narrative: Methodology: Multiplex PCR The Infinite Enzymese BCID panel can detect the following organisms: [...] Abnormal Glucose 357 (*) Narrative: Performed by: [facility], [address] [place] [address] CLIA ID: [id number] POCT VENOUS BLOOD GAS UNSOLICITED RESULTS - Abnormal pH, Venous 7.265 (*) pCO2, Venous 48.8 pO2, Venous 35.4 HCO3, Venous 22.2 (*) Base Excess, Venous -5.0 (*) SO2, Venous 59.1 FIO2 Narrative: Performed by: [facility], [address] [place] [address] CLIA ID: [id number] POCT GLUCOSE METER UNSOLICITED RESULTS - Abnormal Glucose 339 (*) Narrative: Performed by: [facility], [address] [place] [address] CLIA ID: [id number] POCT VENOUS BLOOD GAS UNSOLICITED RESULTS - Abnormal pH, Venous 7.164 (*) pCO2, Venous 39.4 (*) pO2, Venous 39.7 HCO3, Venous 14.2 (*) Base Excess, Venous -13.5 (*) SO2, Venous 60.8 FIO2 Narrative: Performed by: [facility], [address] [place] [address] CLIA ID: [id number] POCT GLUCOSE METER UNSOLICITED RESULTS - Abnormal Glucose 379 (*) Narrative: Performed by: [facility], [address] [place] [address] CLIA ID: [id number] POCT GLUCOSE METER UNSOLICITED RESULTS - Abnormal Glucose 342 (*) Narrative: Performed by: [facility], [address] [place] [address] CLIA ID: [id number] POCT ARTERIAL BLOOD GAS UNSOLICITED RESULTS - Abnormal pH, Arterial 7.317 (*) pCO2, Arterial 37.4 pO2, Arterial 138.0 (*) HCO3, Arterial 19.1 (*) Base Excess, Arterial -6.3 (*) SO2, Arterial 98.9 FIO2 Narrative: Performed by: [facility], [address] [place] [address], [facility] [address] CLIA ID: [id number] POCT GLUCOSE METER UNSOLICITED RESULTS - Abnormal Glucose 421 (*) Narrative: Performed by: [facility], [address] [place] [address], [facility] [address] CLIA ID: [id number] POCT GLUCOSE METER UNSOLICITED RESULTS - Abnormal Glucose 413 (*) Narrative: Performed by: [facility], [address] [place] [address], [facility] [address] CLIA ID: [id number] POCT GLUCOSE METER UNSOLICITED RESULTS - Abnormal Glucose 416 (*) Narrative: Performed by: [facility], [address] [place] [address], [facility] [address] CLIA ID: [id number] POCT GLUCOSE METER UNSOLICITED RESULTS - Abnormal Glucose 393 (*) Narrative: Performed by: [facility], [address] [place] [address], [facility] [address] CLIA ID: [id number] POCT GLUCOSE METER UNSOLICITED RESULTS - Abnormal Glucose 343 (*) Narrative: Performed by: [facility], [address] [place] [address], [facility] [address] CLIA ID: [id number] POCT GLUCOSE METER UNSOLICITED RESULTS - Abnormal Glucose 323 (*) Narrative: Performed by: [facility], [address] [place] [address], [facility] [address] CLIA ID: [id number] POCT GLUCOSE METER UNSOLICITED RESULTS - Abnormal Glucose 317 (*) Narrative: Performed by: [facility], [address] [place] [address], [facility] [address] CLIA ID: [id number] POCT GLUCOSE METER UNSOLICITED RESULTS - Abnormal Glucose 299 (*) Narrative: Performed by: [facility], [address] [place] [address], [facility] [address] CLIA ID: [id number] POCT GLUCOSE METER UNSOLICITED RESULTS - Abnormal Glucose 267 (*) Narrative: Performed by: [facility], [address] [place] [address], [facility] [address] CLIA ID: [id number] POCT GLUCOSE METER UNSOLICITED RESULTS - Abnormal Glucose 291 (*) Narrative: Performed by: [facility], [address] [facility], [facility] [address] CLIA ID: [id number] POCT GLUCOSE METER UNSOLICITED RESULTS - Abnormal Glucose 312 (*) Narrative: Performed by: [facility], [address], [facility] [address] CLIA ID: [id number] POCT GLUCOSE METER UNSOLICITED RESULTS - Abnormal Glucose 295 (*) Narrative: Performed by: [facility], [address] [facility], [facility] [address] CLIA ID: [id number] POCT GLUCOSE METER UNSOLICITED RESULTS - Abnormal Glucose 262 (*) Narrative: Performed by: [facility], [address] [facility], [facility] [address] CLIA ID: [id number] POCT GLUCOSE METER UNSOLICITED RESULTS - Abnormal Glucose 278 (*) Narrative: Performed by: [facility], [address] [facility], [facility] [address] CLIA ID: [id number] POCT GLUCOSE METER UNSOLICITED RESULTS - Abnormal Glucose 231 (*) Narrative: Performed by: [facility], [address] [facility], [facility] [address] CLIA ID: [id number] POCT GLUCOSE METER UNSOLICITED RESULTS - Abnormal Glucose 214 (*) Narrative: Performed by: [facility], [address] [facility], [facility] [address] CLIA ID: [id number] POCT GLUCOSE METER UNSOLICITED RESULTS - Abnormal Glucose 202 (*) Narrative: Performed by: [facility], [address] [facility], [facility] [address] CLIA ID: [id number] POCT GLUCOSE METER UNSOLICITED RESULTS - Abnormal Glucose 183 (*) Narrative: Performed by: [facility], [address] [facility], [facility] [address] CLIA ID: [id number] POCT GLUCOSE METER UNSOLICITED RESULTS - Abnormal Glucose 154 (*) Narrative: Performed by: [facility], [address], [facility] [address] CLIA ID: [id number] POCT GLUCOSE METER UNSOLICITED RESULTS - Abnormal Glucose 140 (*) Narrative: Performed by: [facility], [address] [facility], [facility] [address] CLIA ID: [id number] POCT GLUCOSE METER UNSOLICITED RESULTS - Abnormal Glucose 147 (*) Narrative: Performed by: [facility], [address] [place] [address], [facility] [address] CLIA ID: [id number] POCT GLUCOSE METER UNSOLICITED RESULTS - Abnormal Glucose 133 (*) Narrative: Performed by: [facility], [address] [place] [address], [facility] [address] CLIA ID: [id number] POCT GLUCOSE METER UNSOLICITED RESULTS - Abnormal Glucose 117 (*) Narrative: Performed by: [facility], [address] [place] [address], [facility] [address] CLIA ID: [id number] POCT GLUCOSE METER UNSOLICITED RESULTS - Abnormal Glucose 117 (*) Narrative: Performed by: [facility], [address] [place] [address], [facility] [address] CLIA ID: [id number] POCT GLUCOSE METER UNSOLICITED RESULTS - Abnormal Glucose 101 (*) Narrative: Performed by: [facility], [address] [place] [address], [facility] [address] CLIA ID: [id number] POCT GLUCOSE METER UNSOLICITED RESULTS - Abnormal Glucose 110 (*) Narrative: Performed by: [facility], [address] [place] [address] CLIA ID: [id number] POCT GLUCOSE METER UNSOLICITED RESULTS - Abnormal Glucose 104 (*) Narrative: Performed by: [facility], [address] [place] [address] CLIA ID: [id number] POCT GLUCOSE METER UNSOLICITED RESULTS - Abnormal Glucose 122 (*) Narrative: Performed by: [facility], [address] [place] [address] CLIA ID: [id number] POCT VENOUS BLOOD GAS UNSOLICITED RESULTS - Abnormal pH, Venous 7.438 (*) pCO2, Venous 35.8 (*) pO2, Venous <29.6 HCO3, Venous 24.2 Base Excess, Venous 0.1 SO2, Venous 56.6 FIO2 30 Narrative: Performed by: [facility], [address] [place] [address] CLIA ID: [id number] POCT GLUCOSE METER UNSOLICITED RESULTS - Abnormal Glucose 130 (*) Narrative: Performed by: [facility], [address], [facility] [address] CLIA ID: [id number] POCT GLUCOSE METER UNSOLICITED RESULTS - Abnormal Glucose 128 (*) Narrative: Performed by: [facility], [address], [facility] [address] CLIA ID: [id number] POCT GLUCOSE METER UNSOLICITED RESULTS - Abnormal Glucose 138 (*) Narrative: Performed by: [facility], [address], [facility] [address] CLIA ID: [id number] POCT GLUCOSE METER UNSOLICITED RESULTS - Abnormal Glucose 122 (*) Narrative: Performed by: [facility], [address], [facility] [address] CLIA ID: [id number] POCT GLUCOSE METER UNSOLICITED RESULTS - Abnormal Glucose 121 (*) Narrative: Performed by: [facility], [address], [facility] [address] CLIA ID: [id number] POCT GLUCOSE METER UNSOLICITED RESULTS - Abnormal Glucose 119 (*) Narrative: Performed by: [facility], [address], [facility] [address] CLIA ID: [id number] POCT GLUCOSE METER UNSOLICITED RESULTS - Abnormal Glucose 129 (*) Narrative: Performed by: [facility], [address], [facility] [address] CLIA ID: [id number] POCT GLUCOSE METER UNSOLICITED RESULTS - Abnormal Glucose 132 (*) Narrative: Performed by: [facility], [address], [facility] [address] CLIA ID: [id number] POCT GLUCOSE METER UNSOLICITED RESULTS - Abnormal Glucose 144 (*) Narrative: Performed by: [facility], [address], [facility] [address] CLIA ID: [id number] POCT GLUCOSE METER UNSOLICITED RESULTS - Abnormal Glucose 177 (*) Narrative: Performed by: [facility], [address], [facility] [address] CLIA ID: [id number] POCT GLUCOSE METER UNSOLICITED RESULTS - Abnormal Glucose 155 (*) Narrative: Performed by: [facility], [address], [facility] [address] CLIA ID: [id number] POCT GLUCOSE METER UNSOLICITED RESULTS - Abnormal Glucose 174 (*) Narrative: Performed by: [facility], [address], [facility] [address] CLIA ID: [id number] POCT GLUCOSE METER UNSOLICITED RESULTS - Abnormal Glucose 139 (*) Narrative: Performed by: [facility], [address], [facility] [address] CLIA ID: [id number] POCT GLUCOSE METER UNSOLICITED RESULTS - Abnormal Glucose 159 (*) Narrative: Performed by: [facility], [address], [facility] [address] CLIA ID: [id number] POCT GLUCOSE METER UNSOLICITED RESULTS - Abnormal Glucose 160 (*) Narrative: Performed by: [facility], [address], [facility] [address] CLIA ID: [id number] POCT GLUCOSE METER UNSOLICITED RESULTS - Abnormal Glucose 156 (*) Narrative: Performed by: [facility], [address], [facility] [address] CLIA ID: [id number] POCT GLUCOSE METER UNSOLICITED RESULTS - Abnormal Glucose 182 (*) Narrative: Performed by: [facility], [address], [facility] [address] CLIA ID: [id number] POCT GLUCOSE METER UNSOLICITED RESULTS - Abnormal Glucose 208 (*) Narrative: Performed by: [facility], [address], [facility] [address] CLIA ID: [id number] POCT GLUCOSE METER UNSOLICITED RESULTS - Abnormal Glucose 180 (*) Narrative: Performed by: [facility], [address], [facility] [address] CLIA ID: [id number] POCT GLUCOSE METER UNSOLICITED RESULTS - Abnormal Glucose 187 (*) Narrative: Performed by: [facility], [address], [facility] [address] CLIA ID: [id number] POCT GLUCOSE METER UNSOLICITED RESULTS - Abnormal Glucose 169 (*) Narrative: Performed by: [facility], [address], [facility] [address] CLIA ID: [id number] POCT GLUCOSE METER UNSOLICITED RESULTS - Abnormal Glucose 160 (*) Narrative: Performed by: [facility], [address] [facility], [facility] [address] CLIA ID: [id number] POCT GLUCOSE METER UNSOLICITED RESULTS - Abnormal Glucose 138 (*) Narrative: Performed by: [facility], [address], [facility] [address] CLIA ID: [id number] POCT GLUCOSE METER UNSOLICITED RESULTS - Abnormal Glucose 128 (*) Narrative: Performed by: [facility], [address] [facility], [facility] [address] CLIA ID: [id number] POCT GLUCOSE METER UNSOLICITED RESULTS - Abnormal Glucose 161 (*) Narrative: Performed by: [facility], [address] [place] [address], [facility] [address] CLIA ID: [id number] POCT GLUCOSE METER UNSOLICITED RESULTS - Abnormal Glucose 124 (*) Narrative: Performed by: [facility], [address] [facility], [facility] [address] CLIA ID: [id number] POCT GLUCOSE METER UNSOLICITED RESULTS - Abnormal Glucose 139 (*) Narrative: Performed by: [facility], [address] [facility], [facility] [address] CLIA ID: [id number] POCT GLUCOSE METER UNSOLICITED RESULTS - Abnormal Glucose 128 (*) Narrative: Performed by: [facility], [address] [facility], [facility] [address] CLIA ID: [id number] POCT GLUCOSE METER UNSOLICITED RESULTS - Abnormal Glucose 127 (*) Narrative: Performed by: [facility], [address] [place] [address], [facility] [address] CLIA ID: [id number] POCT GLUCOSE METER UNSOLICITED RESULTS - Abnormal Glucose 138 (*) Narrative: Performed by: [facility], [address] [place] [address], [facility] [address] CLIA ID: [id number] POCT GLUCOSE METER UNSOLICITED RESULTS - Abnormal Glucose 158 (*) Narrative: Performed by: [facility], [address] [facility], [facility] [address] CLIA ID: [id number] BLOOD CULTURE - Normal Blood Culture No [...] In compliance with this authorization, please visit www.fda.gov/media/514435/download or www.fda.gov/media/996470/download to access the applicable information sheets. MRSA [...] modified and its performance characteristics determined by [facility]. The [employer] [employer] [...] Normal Glucose 99 Narrative: Performed by: [facility], [address] [place] [address] CLIA ID: [id number] RESPIRATORY CULTURE AND STAIN Respiratory culture No [...] Culture. Procedure Abnormality Status --------- ------ Complete Urinalysis[[id number]] Abnormal Final result Please view results for [...] FIO2 30 Narrative: Performed by: [facility], [address] [place] [address] CLIA ID: [id number] POCT VENOUS BLOOD GAS UNSOLICITED RESULTS POCT [...] 90 100 99 Resp: (!) 31 (!) 11 17 22 Temp: TempSrc: SpO2: 98% 97% 98% Weight: Height: Medications Administered in the ED: Medications sodium chloride 0.9% (NS) flush 10 mL (10 mL IntraVENous Not Given 08/02/23 09) sodium chloride 0.9% (NS) flush 10 mL ( IntraVENous MAR Unhold 07/31/23722) sodium chloride 0.9 % infusion ( IntraVENous MAR Unhold 07/31/23722) acetaminophen (Tylenol) tablet 650 mg ( Oral Held by provider 07/31/23314) Or acetaminophen (Tylenol) suppository 650 mg ( Rectal Held by provider 07/31/23314) ondansetron ODT (Zofran-ODT) disintegrating tablet 4 mg [...] 100 mL IVPB (0 mg IntraVENous Stopped 08/02/23906) glucose oral gel 15 g ( Oral MAR Unhold 07/31/23722) dextrose 50 % solution 12.5 g ( IntraVENous MAR Unhold 07/31/23722) glucagon (human recombinant) injection 1 mg ( IntraMUSCular MAR Unhold 07/31/23722) dextrose 5 % infusion ( IntraVENous MAR Unhold 07/31/23722) stomahesive in petrolatum (ET Mix) ( Topical Given 08/02/23 06) labetalol (Normodyne,Trandate) injection 10 mg ( IntraVENous MAR Unhold 07/31/23722) heparin injection 4,000 Units ( IntraVENous MAR Unhold 07/31/23 0723) heparin injection 2,000 Units (2,000 Units IntraVENous Given 08/02/23 1140) heparin 25,000 units in dextrose 5% 250mL infusion (premix) (10 Units/kg/hr 159 kg IntraVENous Rate/Dose Change 08/02/23 1141) Petrolatum ointment ( Topical Given 08/02/23 0606) sodium chloride 0.9% (NS) flush 5-40 mL ( IntraVENous MAR Unhold 07/31/23 0723) insulin regular 100 units in 100 mL NS (Myxredlin) infusion (premix) (10 Units/hr IntraVENous Rate/Dose Verify 08/02/23 1219) ipratropium-albuterol (Duo-Neb) 0.5-2.5 mg/3 mL nebulizer solution 3 mL (3 mL Nebulization Given 08/02/23 0907) miconazole (Micotin) 2 % powder ( Topical Given 08/02/23 0830) sertraline (Zoloft) tablet 50 mg (50 mg Oral Given 08/02/23 0822) apixaban (Eliquis) tablet 5 mg ( Oral Dose Auto Held 08/08/23 2100) atorvastatin (Lipitor) tablet 20 mg (20 mg Oral Given 08/01/232007) donepezil (Aricept) tablet 10 mg (10 mg Oral Given 08/01/232007) senna-docusate sodium (Senokot-S) 8.6-50 MG tablet 2 tablet (2 tablets Oral Given 08/02/23 0606) bisacodyl (Dulcolax) suppository 10 mg (10 mg Rectal Given 08/02/23 0600) polyethylene glycol (PEG) 3350 (Miralax) packet 17 g (17 g Oral Given 08/02/23 0822) Phenylephrine HCl (Pressors) 1 MG/10ML injection - Pyxis ADS Override Pull ( Not Given 07/31/23 0430) norepinephrine (Levophed) infusion 16 mg in 0.9 % sodium chloride 250 mL (Ikv-Pbhwkt-Czlzr) (premix) (0 mcg/min IntraVENous Stopped 08/01/23 1548) lidocaine (Uro-Jet) 2 % gel ( Topical MAR Unhold 07/31/23 0723) ascorbic acid (Vitamin C) tablet 250 mg (250 mg Oral Given 08/02/23 08) baclofen (Lioresal) tablet 5 mg (5 mg Oral Given 08/02/23 08) Diclofenac Sodium (Voltaren) 1 % gel 4 g (4 g Topical Given 08/02/23 09) gabapentin (Neurontin) capsule 200 mg (200 mg Oral Given 08/02/23 08) lisinopril tablet 10 mg ( Oral Dose Auto Held 08/08/23 09) nystatin (Mycostatin) cream ( Topical Given 08/02/23 [...] (Lac-Hydrin) 12 % lotion ( Topical Given 08/02/23821) Hydrocortisone Sod Suc (PF) (Solu-CORTEF) injection 50 [...] 1,000 mL (0 mL IntraVENous Stopped 07/30/23 213) sodium bicarbonate 8.4 % injection 50 mEq (50 mEq IntraVENous Given 07/30/232138) perflutren protein A microsphere (Optison) 3 mL in sodium chloride (PF) 0.9 % 10 mL IV syringe (7 mL IntraVENous Given 07/31/23 0848) albumin human 25 % IV solution 50 g (0 g IntraVENous Stopped 07/31/23 0031) lactated ringers bolus 500 mL (0 mL IntraVENous Stopped 07/31/23 0130) insulin regular (HumuLIN R,NovoLIN R) injection 10 Units (10 Units IntraVENous Given 07/30/23 2352) And dextrose 50 % solution 25 g (25 g IntraVENous Given 07/30/232352) sodium bicarbonate 8.4 % injection 50 mEq (50 mEq IntraVENous Given 07/30/23 2347) heparin injection 4,000 Units (4,000 Units IntraVENous Given 07/31/23 0142) insulin regular (HumuLIN R,NovoLIN R) injection 10 Units (10 Units SubCUTAneous Given 07/31/23 0037) fentaNYL (Sublimaze) injection (20 mcg IntraVENous Given 07/31/23 0429) rocuronium (ZeMuron) injection (15,900 mg IntraVENous Given 07/31/23 0432) lactated ringers bolus 1,000 mL (0 mL IntraVENous Stopped 07/31/232054) calcium gluconate 2000 mg in 100 mL IVPB premix (0 mg IntraVENous Stopped 07/31/232038) albumin human 25 % IV solution 50 g (0 g IntraVENous Stopped 07/31/231936) lactated ringers bolus 500 mL (0 mL IntraVENous Stopped 07/31/23 193) calcium gluconate 2000 mg in 100 mL [...] 09:44:01 PM PATIENT REFERRED TO: Wound Care [address] [address] DISCHARGE MEDICATIONS: Current Discharge Medication [...] Lemon MD (electronically signed) Emergency Medicine Provider [facility] Cesario Lemon MD 08/02/23 1259 Cesario Lemon [...] my urgent intervention. Kirsten Rogers MD 07/30/23 2295 Pt arrived by EMS from long-term with c/o altered mental status. Less alert than baseline. States her BGT was in the 500's before leaving long-term gave pt 9 units of insulin, BGT in squad was in 300's. Pt arrives only responding to voice, 96% on RA. Last known well unknown. Pt is lethargic and foul smelling. Unable to ask screening questions or complete triage due to pts mental status. Kami Oquendo RN 07/30/23 1348 documented in this encounter [facility] 07-30-2023 History and physical note Images from [...] exchange at this time. Patient arrived to [facility] ED for altered mental status. Per [...] by mouth daily. Historical Provider, nystatin (Mycostatin) 146434 UNIT/GM powder 03/22/22 Historical Provider, senna-docusate ([place]-Colace) [...] Normal [] Scar/Lesion/Mass Inspection of teeth/lips/gums Dentition: [x]Three Affiliated Teeth []Dentures Lips/Gums: [x]Intact []Lesion Present Mucosa: [x][place] [x]Moist []Dry Neck: External Appearance Overall Appearance: [...] 14.4 ABGs: No results for input(s): "PHART", "EPX3DSK", "PO2ART", "ZRJ2NBJ", "SO2ART", "M8WDJTSR" in the last 72 hours. Lactic Acid: [...] -Bedbound Debility -Recommend PT/OT eval and tx -Automotive Maintenance Technician consult -Consult to social work and case management for discharge planning Code Status -Full Code -Recommend a Palliative Care Consult for exterminator goals of care GI Prophylaxis: famotidine 20mg [...] physicians, excluding procedures. documented in this encounter [facility] 01-11-2023 Note Formatting of this n ote might be different from the original. Dc back to [facility] this afternoon at 3:30. [facility] ambulance to transport. Ambulance transport form completed and will be provided to 2E principal secretary. [facility] messaged the facility with the sheepskin pickler time. Report number given to the bedside nurse. Voicemail message left for patients emergency contact Deidra to share dc arrangements and sheepskin pickler time. Provided my number should she have any questions or concerns. [facility] 01-11-2023 Note Formatting of this n ote might be different from the original. Dc back to [facility] this afternoon at 3:30. [facility] ambulance to transport. Ambulance transport form completed and will be provided to 2E principal secretary. [employer] messaged the facility with the sheepskin pickler time. Report number given to the bedside nurse. Voicemail message left for patients emergency contact Deidra to share dc arrangements and sheepskin pickler time. Provided my number should she have any questions or concerns. [facility] 01-11-2023 Miscellaneous Notes Dc back to [facility] this afternoon at 3:30. [facility] to transport. Ambulance transport form completed and will be provided to 2E principal secretary. [place] messaged the facility with the sheepskin pickler time. Report number given to the bedside nurse. Voicemail message left for patients emergency contact Deidra to share dc arrangements and sheepskin pickler time. Provided my number should she have any questions or concerns. Referral placed to return back to [facility] via [facility] per TCC request. Await review and response regarding ability to accept. TCC notified. Images from the original note were not included. Care Management Progress Note Patient with discharge orders placed. LASTING ROOM MACHINE OPERATOR tasked, via [employer], send discharge paperwork and updated notes, per facility, to [facility]. Secure message sent to to arrange transportation, notify facility and family. Discharge Milestones and Delays Expected Date/Time: 01/11/2023 Disposition: [facility]pc Facility Transport status: No current request Discharge [...] orthopedic surgery following. Discharge plan: Back to [facility] when medically stable. Discharge obstacles: none noted. [...] orthopedic surgery following. Discharge plan: Back to [facility] when medically stable. Discharge obstacles: none noted. [...] 1950 Patient Information Source of Information: Patient Senior Tax Accountant Name/Contact Information: Spoke with Jesus on the phone Cognition/Language: Confused at baseline Permission given to speak with patient claim representative/caregiver as indicated: Yes Confirmation of Payer with patient/family: Yes Payer Name: Bk GUERRA Home: No Confirmation of Primary Care Physician: Confirmed PCP Name: Dr Paige Rivera Seen in last 2 years?: Yes Primary Caregiver: (Per , patient to return to [facility]) If assistance needed, confirmed caregiver ready, willing and able to care for patient at discharge: Yes Confirmed with: [facility] Living Arrangements Current Residence: Number of Floors Number of Entry Steps: Bed/Bath Levels: Facility: Jail[facility] Facility Name: [facility] Plan to Return: Yes Lives with: ([facility]) Support Systems: Spouse/significant other, Children, Family members, Friends/neighbors ([facility] staff and residents) Activities of Daily Living Ambulation: Total Care Bathing/Dressing: Total Care Elimination/Continence/Toileting: Total Care Feeding: Total Care Who Assists with Activities of Daily Living: [facility] staff Instrumental Activities of Daily Living Prescription Coverage: Yes Pharmacy Used: [facility] pharmacy Medication Management: ([facility] nurses manage medications) Transportation/Shopping: Assistance Provider Transportation/Shopping Assistance Provider Name: Family and ECF provide all of patient's necessities Transportation Mode: Needs Assistance with Transportation at Discharge: Yes (SUPERCHARGER REPAIR SUPERVISOR to set up return transportation to [facility]) Meal Preparation: Assistance Provider Meal Prep Assistance Provider Name: [facility] staff Laundry/Cleaning: Assistance Provider Laundry/Cleaning Assistance Provider Name: [facility] staff Finances/Bill Paying: Assistance Provider Finances/Bill Payer Assistance Provider Name: Jesus Communication: Independent Types of Care Services/Equipment Utilized Care Services: Dialysis Type: Durable Medical Equipment: Wheelchair (standard or power), Hospital Bed, Raheem Lift Patient's Goal/Discharge Plan Patient expects to be discharged to: Return to [facility] Discharge Planning Actions: Continue to follow Patient's Choice Rights and [employer] and Collaborative Relationships Disclosed as Indicated for Post-Acute Care: Interdisciplinary Team Engagement: PT/OT Social Work Referral for: Additional Information: IA completed over the phone with anila Lee. Introduced self and role. Patient is admitted (ED roomed) for severe neck and right arm pain. Found to have cystitis on admission. Patient lives in [facility], [facility] to set up return transport to [facility]. Sees facility Licensed Embalmer Dr Paige Rivera (PCP) routinely. Has insurance and prescription coverage, uses [facility]. Jesus denies any financial difficulties. Plan to return to [facility] when medically stable, confirmed that patient is a Medicaid bed hold in [facility]. Jesus verbalizes understanding and is in agreement with POC. Nancy Gastelum RN documented in this encounter [facility] 01-11-2023 Note Formatting of this n ote might be different from the original. Referral placed to return back to [facility] via [facility] per TCC request. Await review and response regarding ability to accept. TCC notified. [facility] 01-11-2023 Note Formatting of this n ote might be different from the original. Referral placed to return back to [facility] via [facility] per TCC request. Await review and response regarding ability to accept. TCC notified. [facility] 01-11-2023 Note Formatting of this n ote is different from the original. Images from the original note were not included. Care Management Progress Note Patient with discharge orders placed. LASTING ROOM MACHINE OPERATOR tasked, via [facility], send discharge paperwork and updated notes, per facility, to [facility]. Secure message sent to to arrange transportation, notify facility and family. Discharge Milestones and Delays Expected Date/Time: 01/11/2023 Disposition: [facility]pc Facility Transport status: No current request Discharge [...] Stay (Days): 0 GMLOS: No GMLOS Documented [facility] 01-11-2023 Note Formatting of this n ote is different from the original. Images from the original note were not included. Care Management Progress Note Patient with discharge orders placed. [facility] tasked, via [facility], send discharge paperwork and updated notes, per facility, to [facility]. Secure message sent to to arrange transportation, notify facility and family. Discharge Milestones and Delays Expected Date/Time: 01/11/2023 Disposition: Fpc Facility Transport status: No current request Discharge [...] Stay (Days): 0 GMLOS: No GMLOS Documented [facility] 01-11-2023 Hospital course Narrative Images from the [...] skin Nightly. lisinopril 10 MG tablet nystatin 307116 UNIT/GM powder Commonly known as: Mycostatin oxyCODONE [...] Complexity: follow up within 7-14 calendar days (28340) [x] Severe Complexity: follow up within 7 calendar days (49547) Follow up Testing, Pending results or Referrals [...] frame. Signed: Paige Rivera DO Division of Hospital[facility] Medicine Inpatient Medical Services/[facility] 01/11/2023, 11:30 AM Total time Spent on Discharge: 32 minutes documented in this encounter [facility] 01-11-2023 Hospital Discharge instructions Paige Rivera DO [...] Jesus Frank Mobile Relation: Spouse Preferred language: Swiss Neurosurgeon needed? No Past Surgical History: No past [...] (acute kidney injury) (HCC) Chronic venous stasis Hypertension Foot ulcer (HCC) [...] Known to Doctor Izaguirre through consultation at [facility]. 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) Recurrent UTI Cerebrovascular accident ([facility]) Hyperglycemia Chronic indwelling Jose catheter Overview Signed [...] 6.4 oz) Mental Status: {JENN Patient Mental Status:53032} IV Access: {JENN IV Access:44600} Nursing Mobility/ADLs: Walking {JADEN ADL:::"Independent"} Transfer {JADEN ADL:::"Independent"} Bathing {JADEN ADL:::"Independent"} Dressing {JADEN ADL:::"Independent"} Toileting {JADEN ADL:::"Independent"} Feeding {JADEN ADL:::"Independent"} Communications Editor {JADEN ADL:::"Independent"} Med Delivery {yes/no:34760} Wound Care Documentation and Therapy: Wound/Incision 06/09/22 Coccyx (Active) Number of days: 215 Wound/Incision 06/09/22 Venous Ulcer Pretibial Right (Active) Number of days: 215 Wound/Incision 06/09/22 Venous Ulcer Pretibial Left (Active) Number of days: 215 Wound/Incision 06/10/22 Traumatic Leg Left;Proximal;Upper;Posterior (Active) Number of days: 215 Wound/Incision 06/10/22 Amputation site - Toe Anterior;Right (Active) Number of days: 214 Elimination: Continence: Bowel: {yes/no:43674} Bladder: {yes/no:96148} Urinary Catheter: {JENN Urinary Catheter:87465} Colostomy/Ileostomy/Ileal Conduit: {YES / NO:} Date of Last BM: Intake/Output Summary (Last 24 hours) at 01/11/2023 1103 Last data filed at 01/11/2023 0638 Gross per 24 hour Intake -- Output 850 ml Net -850 ml I/O last 3 completed shifts: In: - (0 mL/kg) Out: 1050 (7.2 mL/kg) [Urine:1050 (0.2 mL/kg/hr)] Weight: 145.3 kg Safety Concerns: {JENN Safety Concerns:49975} Impairments/Disabilities: {JENN Impairments/Disabilities:05363} Nutrition Therapy: Current Nutrition Therapy: {JENN Diet List:23359} Routes of Feeding: {routes of feedin} Liquids: {liquid consistency:90523} Daily Fluid Restriction: {daily fluid restriction:05032} Last Modified Barium Swallow with Video (Video Swallowing Test): {done not done:77382} Treatments at the Time of Hospital Discharge: Respiratory Treatments: Oxygen Therapy: {Therapy; copd oxygen:98651} Ventilator: {JENN Ventilator:93158} Rehab Therapies: {GEN THERAPY DISCIPLINE SCAL:5264539} Weight Bearing Status/Restrictions: {POD WEIGHT BEARIN} Other Medical Equipment (for information only, NOT a DME order): {Assistive Devices DME:02748} Other Treatments: Patient's personal belongings (please select all that are sent with patient): {JENN Patient Belongings:74153} RN SIGNATURE: {E-signature:65475} CASE MANAGEMENT/SOCIAL WORK SECTION Inpatient Status Date: 01/08/2023 Readmission Risk Assessment Score: @READMISSIONRISKDETAILS@ Discharging to Facility/ Agency Name: [facility] Address: [address] [place] [address] [place] [address] Dialysis Facility (if applicable) Name: Address: Dialysis Schedule: Phone: Fax: Iridologist/Automatic Punch Press Operator signature: ICIAN SECTION Prognosis: excellent Condition at Discharge: stable Rehab Potential (if transferring to Rehab): excellent Recommended Labs or Other Treatments After Discharge: follow up with pain management, PT/OT eval Physician Certification: I certify the above information and transfer of Salazar Coyle is necessary for the continuing treatment of the diagnosis listed and that she requires group home facility for less than 30 days. Update Admission H&P: No change in H&P PHYSICIAN SIGNATURE: documented in this encounter [facility] 01-10-2023 Note Formatting of this n ote is different from the original. Images from the original note were not included. Care Management Progress Note Patient remains on 2E for right arm pain. Clinical updates: Patient has a jose, blood cultures no growth for 48 hours. Refused AM labs. Wound care, orthopedic surgery following. Discharge plan: Back to [facility] when medically stable. Discharge obstacles: none noted. [...] Stay (Days): 0 GMLOS: No GMLOS Documented [facility] 01-10-2023 Note Formatting of this n ote is different from the original. Images from the original note were not included. Care Management Progress Note Patient remains on 2E for right arm pain. Clinical updates: Patient has a jose, blood cultures no growth for 48 hours. Refused AM labs. Wound care, orthopedic surgery following. Discharge plan: Back to [facility] when medically stable. Discharge obstacles: none noted. [...] Stay (Days): 0 GMLOS: No GMLOS Documented [facility] 01-10-2023 History of Present illness Narrative Images from the original note were not included. PHYSICAL THERAPY [facility] Initial Evaluation Having reviewed the treatment plan and goals for this patient, I certify that the plan of care below is medically necessary and appropriate. Name/MRN: Salazar Coyle ([id number]) Evaluation Date: 01/10/2023 Date of : 1950 Admission Date: 01/08/2023 3:10 AM Age: 72 y.o. Room[facility]Bed: [facility] A Discharge Recommendation: ECF without PT Equipment Needed: none Assessment IMPRESSION: Pt admitted 01/08 with neck pain, arm pain/numbness. At baseline is at [facility], bedbound and total assist. She attempt long sit with dep x2, per nursing is dep x3-4 for rolling. She demo decreased cervical ROM in all planes, therapist reviewed simple cervical ROM HEP and pt able to complete. She demo poor therapy potential due to bedbound status, will keep on caseload to review cervical HEP, would benefit from continuation of program at [facility] with nursing instruction Diagnosis: cervical DDD/stenosis Performance Deficits /Impairments: Decreased Functional Mobility, Decreased ROM, Decreased Strength, Decreased Safety Awareness, Decreased Endurance, Decreased Sensation, and Decreased Balance Decision Making: Low Complexity Subjective Per RN pt okay for therapy, pt agree to attempt PT trial Pain: Pt denies any current pain. Past Medical History: Past Medical History: Diagnosis Date A-fib ([facility]) ([facility]) Anemia Diabetes ([facility]) Lymphedema Obesity Past Surgical History: No past surgical history on file. Admission Diagnosis: Patient Active Problem List Diagnosis Date Noted Edema 04/11/2021 Radicular pain in right arm 01/08/2023 Ureteropelvic junction calculus 08/07/2022 WHITLEY (acute kidney injury) ([facility]) 08/07/2022 Chronic venous stasis 08/07/2022 Inflammatory reaction due to indwelling ureteral stent, initial encounter ([facility]) 08/02/2022 Septic shock ([facility]) ([facility]) 06/09/2022 Hypertension 04/15/2021 Hyperlipemia 04/15/2021 Cognitive decline 04/15/2021 Morbid obesity with BMI of 60.0-69.9, adult ([facility]) 04/15/2021 Chronic indwelling Jose catheter 04/15/2021 Foot ulcer ([facility]) 04/13/2021 Wounds, multiple 04/11/2021 PAF (paroxysmal atrial fibrillation) ([facility]) 04/11/2021 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 ([facility]) 04/11/2021 Hyperglycemia 04/11/2021 CKD (chronic kidney disease) 04/11/2021 Asymptomatic bacteriuria 04/11/2021 Anemia 04/11/2021 Bladder spasm 03/08/2021 Type 2 diabetes mellitus with hyperglycemia ([facility]) 03/08/2021 Degenerative disc disease, cervical 03/08/2021 Chronic pain 03/08/2021 Osteoarthrosis 03/08/2021 Recurrent UTI 03/08/2021 Cerebrovascular accident ([facility]) 03/08/2021 Medical Precautions: No active isolations Proper [...] would encourage continuation cervical ROM/there ex at [facility]. Safety/Education Safety Safety Devices in place: All [...] Minutes: 8 Minutes (ther ex x1) Josr Sheppard, PT Patient's Physical Therapy Plan of Care supervision is transferred to a [facility] Physical Therapist. Goals and/or treatment plan was established in collaboration with patient/family/other representatives. Occupational Therapy OCCUPATIONAL THERAPY [facility] Initial Evaluation Name/MRN: Salazar Coyle ([id number]) Evaluation Date: 01/10/2023 Date of : 1950 [...] junction calculus 08/07/2022 WHITLEY (acute kidney injury) ([facility]) 08/07/2022 Chronic venous stasis 08/07/2022 Inflammatory reaction due to indwelling ureteral stent, initial encounter ([facility]) 08/02/2022 Septic shock ([facility]) ([facility]) 06/09/2022 Hypertension 04/15/2021 Hyperlipemia 04/15/2021 Cognitive decline 04/15/2021 Morbid obesity with BMI of 60.0-69.9, adult ([facility]) 04/15/2021 Chronic indwelling Jose catheter 04/15/2021 Foot ulcer ([facility]) 04/13/2021 Wounds, multiple 04/11/2021 PAF (paroxysmal atrial fibrillation) ([facility]) 04/11/2021 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 ([facility]) 04/11/2021 Hyperglycemia 04/11/2021 CKD (chronic kidney disease) 04/11/2021 Asymptomatic bacteriuria 04/11/2021 Anemia 04/11/2021 Bladder spasm 03/08/2021 Type 2 diabetes mellitus with hyperglycemia ([facility]) 03/08/2021 Degenerative disc disease, cervical 03/08/2021 Chronic pain 03/08/2021 Osteoarthrosis 03/08/2021 Recurrent UTI 03/08/2021 Cerebrovascular accident ([facility]) 03/08/2021 Medical Precautions: No active isolations Proper [...] assessed this session Strength: Exceptions: 3-/5 proximally, tissue specialist strength decreased but symmetrical 3/5 Tremors: no [...] of Care supervision is transferred to a [facility] Services Occupational Therapist. Goals and/or treatment plan was established in collaboration with patient/family/other representatives. Images from the original note were not included. Hospitalist Progress Note 01/10/[phone]: Please page me ([phone]) for patient care issues. [phone]: Please page [facility] night Hospitalist for any issues. Subjective: Admit [...] Jesus Frank Mobile Relation: Spouse Preferred language: Swiss Neurosurgeon needed? No Paige Rivera DO Division of [facility] Medicine Inpatient Medical Services/[facility] PAGER: Epic chat Nutrition rescreen complete. Pt [...] patient refuses, would recommend transfer back to [facility] when medically stable and consultation with pain management as outpatient Lab Results Component Value Date WBC 6.1 01/08/2023 HGB 11.5 (L) 01/08/2023 HCT 34.0 (L) 01/08/2023 PLT 173 01/08/2023 Pt refusing to let staff check her Blood sugar. Images from the original note were not included. Occupational Therapy OCCUPATIONAL THERAPY [facility] Name/MRN: Salazar Coyle ([id number]) Date: 01/09/2023 Chart reviewed. Per chart review, pt reports she is bedbound at facility, does not transfer or Raheem. She is declining therapy. Will complete order. Kobe Valdez OT Images from the original note were not included. Hospitalist Progress Note 01/09/[id number]: Please page nv ([phone]) for patient care issues. [phone]: Please page [facility] Hospitalist for any issues. Subjective: Admit [...] 8.6 ANIONGAP 7 LIVER PROFILE: Recent Labs 01/08/23 0427 AST 29 ALT 20 BILITOT 0.4 ALKPHOS [...] Vang Mobile Relation: Child Secondary Emergency Contact: KdkenaJesus Mobile Relation: Spouse Preferred language: [place] Neurosurgeon needed? No Paige Rivera DO Division of Hospitalist Medicine Inpatient Medical Services/[facility] PAGER: Epic chat Images from the original note were not included. PHYSICAL THERAPY [facility] Name/MRN: Salazar Coyle ([id number]) Date: 01/09/2023 Chart reviewed. Introduced self and role. Pt reports she is bedbound at facility, does not transfer or Raheem. She declines therapy. Will complete order. Josr Sheppard PT Pt refused blood sugar check and vitals signs this AM for NA. This RN will attempt at a later time. Mimi Shah RN documented in this encounter [facility] 01-09-2023 Consult note Associated Order (s): Inpatient [...] the past 10 days. She is a long-term patient at [facility]. The ER physician stated that he spoke with long-term staff and her complaints of pain had [...] taking: Reported on 01/08/2023 08/07/22 08/07/23 Juan Becker DO lisinopril 10 MG tablet Take 10 mg by mouth daily. Historical Provider, nystatin (Mycostatin) [id number] UNIT/GM powder 03/22/22 Historical Provider, oxyCODONE (Oxy-IR) [...] the consult we will follow with you. [facility] 01-09-2023 Consult note Associated Order (s): Inpatient [...] the past 10 days. She is a long-term patient at [facility]. The ER physician stated that he spoke with long-term staff and her complaints of pain had [...] taking: Reported on 01/08/2023 08/07/22 08/07/23 Juan Becker DO lisinopril 10 MG tablet Take 10 mg by mouth daily. Historical Provider, nystatin (Mycostatin) [id number] UNIT/GM powder 03/22/22 Historical Provider, oxyCODONE (Oxy-IR) [...] follow with you. documented in this encounter [facility] 01-09-2023 Note Formatting of this n ote is different from the original. Images from the original note were not included. Care Management Progress Note TRANSITIONAL CARE DAILY NOTE/UPDATES: Patient remains on 2E for right arm pain. Clinical updates: Patient has a jose, pending blood cultures. Refused AM labs. Wound care, orthopedic surgery following. Discharge plan: Back to [facility] when medically stable. Discharge obstacles: none noted. [...] Stay (Days): 1 GMLOS: No GMLOS Documented [facility] 01-09-2023 Note Formatting of this n ote is different from the original. Images from the original note were not included. Care Management Progress Note TRANSITIONAL CARE DAILY NOTE/UPDATES: Patient remains on 2E for right arm pain. Clinical updates: Patient has a jsoe, pending blood cultures. Refused AM labs. Wound care, orthopedic surgery following. Discharge plan: Back to [facility] when medically stable. Discharge obstacles: none noted. TCC to continue to follow. Discharge Milestones and Delays Expected Date/Time: 01/11/[address] discharge order Complete med reconciliation Case mgmt discharge readiness Clinical Stability Diagnsotic Workup Expected Discharge History Expected Date/Time Set By Reviewed At 01/11/2023 Nandini Fonesca RN 01/09/2023 7:42 AM 01/11/2023 Mario Portillo MD 01/08/2023 5:00 PM 01/11/2023 Mario Portillo MD 01/08/2023 8:03 AM Length of Stay (Days): 1 GMLOS: No GMLOS Documented [facility] 01-09-2023 Nurse Note Patient transferred to [address] [place] [address] 48 bed A around 2009. This RN oriented patient to room and attempted to place whanau support worker on patient per doctors orders and for [...] was educated on the importance of the whanau support worker and why it was ordered. Patient also [...] be impacted with stool in the rectum T [facility] 01-09-2023 Nurse Note Patient transferred to [address] [place] [address] A around 2009. This RN oriented patient to room and attempted to place whanau support worker on patient per doctors orders and for [...] was educated on the importance of the whanau support worker and why it was ordered. Patient also [...] Patient is now being transferred to room [facility] on [facility]. Patient arrived to room 147 from ER. documented in this encounter [facility] 01-08-2023 Nurse Note Upon shift report, this RN noticed the patient's potassium result of 5.2. After reading through the patient's chart, telemetry monitoring was supposed to be an initial order for this patient. Patient is now being transferred to room [facility] [facility]. [facility] 01-08-2023 Nurse Note Patient arrived to room 147 from ER. [facility] 01-08-2023 Note Formatting of this n ote might be different from the original. Care Managment Initial Assessment Date: 01/08/2023 Patient Name: Salazar Coyle : 1950 Patient Information Source of Information: Patient Senior Tax Accountant Name/Contact Information: Spoke with Jesus on the phone Cognition/Language: Confused at baseline Permission given to speak with patient claim representative/caregiver as indicated: Yes Confirmation of Payer with patient/family: Yes Payer Name: [facility] Home: No Confirmation of Primary Care Physician: Confirmed PCP Name: Dr Paige Rivera Seen in last 2 years?: Yes Primary Caregiver: (Per , patient to return to [facility]) If assistance needed, confirmed caregiver ready, willing and able to care for patient at discharge: Yes Confirmed with: [facility] Living Arrangements Current Residence: Number of Floors Number of Entry Steps: Bed/Bath Levels: Facility: Jail[facility] Facility Name: [facility] Plan to Return: Yes Lives with: ([facility]) Support Systems: Spouse/significant other, Children, Family members, Friends/neighbors ([facility] staff and residents) Activities of Daily Living Ambulation: Total Care Bathing/Dressing: Total Care Elimination/Continence/Toileting: Total Care Feeding: Total Care Who Assists with Activities of Daily Living: [facility] staff Instrumental Activities of Daily Living Prescription Coverage: Yes Pharmacy Used: [facility] pharmacy Medication Management: ([facility] nurses manage medications) Transportation/Shopping: Assistance Provider Transportation/Shopping Assistance Provider Name: Family and ECF provide all of patient's necessities Transportation Mode: Needs Assistance with Transportation at Discharge: Yes (SUPERCHARGER REPAIR SUPERVISOR to set up return transportation to [facility]) Meal Preparation: Assistance Provider Meal Prep Assistance Provider Name: [facility] staff Laundry/Cleaning: Assistance Provider Laundry/Cleaning Assistance Provider Name: [facility] staff Finances/Bill Paying: Assistance Provider Finances/Bill Payer Assistance Provider Name: [employer] Communication: Independent Types of Care Services/Equipment Utilized Care Services: Dialysis Type: Durable Medical Equipment: Wheelchair (standard or power), Hospital Bed, Raheem Lift Patient's Goal/Discharge Plan Patient expects to be discharged to: Return to [facility] Discharge Planning Actions: Continue to [...] have cystitis on admission. Patient lives in [facility], SUPERCHARGER REPAIR SUPERVISOR to set up return transport to [facility]. Sees facility Licensed Embalmer Dr Paige Rivera (PCP) routinely. Has insurance and prescription coverage, uses [facility]. Jesus denies any financial difficulties. Plan to return to [facility] when medically stable, confirmed that patient is a Medicaid bed hold in [facility]. Jesus verbalizes understanding and is in agreement with POC. Nancy Gastelum RN [facility] 01-08-2023 Note Formatting of this n ote might be different from the original. Care Managment Initial Assessment Date: 01/08/2023 Patient Name: Salazar Coyle : 1950 Patient Information Source of Information: Patient Senior Tax Accountant Name/Contact Information: Spoke with Jesus on the phone Cognition/Language: Confused at baseline Permission given to speak with patient claim representative/caregiver as indicated: Yes Confirmation of Payer with patient/family: Yes Payer Name: Bk GUERRA : No Confirmation of Primary Care Physician: Confirmed PCP Name: Dr Paige Rivera Seen in last 2 years?: Yes Primary Caregiver: (Per , patient to return to [facility]) If assistance needed, confirmed caregiver ready, willing and able to care for patient at discharge: Yes Confirmed with: [facility] Living Arrangements Current Residence: Number of Floors Number of Entry Steps: Bed/Bath Levels: Facility: Jail/[facility] Care Facility Name: [facility] Plan to Return: Yes Lives with: ([facility]) Support Systems: Spouse/significant other, Children, Family members, Friends/neighbors ([facility] staff and residents) Activities of Daily Living Ambulation: Total Care Bathing/Dressing: Total Care Elimination/Continence/Toileting: Total Care Feeding: Total Care Who Assists with Activities of Daily Living: [facility] staff Instrumental Activities of Daily Living Prescription Coverage: Yes Pharmacy Used: [facility] pharmacy Medication Management: ([facility] nurses manage medications) Transportation/Shopping: Assistance Provider Transportation/Shopping Assistance Provider Name: Family and ECF provide all of patient's necessities Transportation Mode: Needs Assistance with Transportation at Discharge: Yes (SUPERCHARGER REPAIR SUPERVISOR to set up return transportation to [facility]) Meal Preparation: Assistance Provider Meal Prep Assistance Provider Name: [facility] staff Laundry/Cleaning: Assistance Provider Laundry/Cleaning Assistance Provider Name: [facility] staff Finances/Bill Paying: Assistance Provider Finances/Bill Payer Assistance Provider Name: Jesus Communication: Independent Types of Care Services/Equipment Utilized Care Services: Dialysis Type: Durable Medical Equipment: Wheelchair (standard or power), Hospital Bed, Raheem Lift Patient's Goal/Discharge Plan Patient expects to be discharged to: Return to [facility] Discharge Planning Actions: Continue to [...] have cystitis on admission. Patient lives in [facility], [facility] to set up return transport to [facility]. Sees facility Licensed Embalmer Dr Paige Rivera (PCP) routinely. Has insurance and prescription coverage, uses [facility]. Jesus denies any financial difficulties. Plan to return to [facility] when medically stable, confirmed that patient is a Medicaid bed hold in [facility]. Jesus verbalizes understanding and is in agreement with POC. Nancy Gastelum RN [facility] 01-08-2023 Emergency department Note After receiving permission from pt to speak to jennifer Renee, gave pt update Christina Brennan RN 01/08/23 1100 [facility] 01-08-2023 Emergency department Note After receiving permission from pt to speak to jennifer Renee, gave pt update Christina Brennan RN 01/08/23 1100 Changed urinary catheter with the help from MATHEUS Powers RN Kortney, RN Heather, Nursing Urgent Care Physician Assistant. Complete bed change of performed on th [...] Mott RN 01/08/23 0406 Emergency Department Encounter [facility] ED Patient: Salazar Coyle : 1950 Date of Evaluation: 01/08/2023 ED Provider: Fahad Champion DO Chief Complaint Chief Complaint Patient presents with Neck Pain Arm Pain Leg Pain WRANGELLMaciel Coyle is a 72 y.o. female who [...] 10 mg by mouth daily. NYSTATIN (MYCOSTATIN) 942546 UNIT/GM POWDER SENNA-DOCUSATE (HELENA-COLACE) 8.6-50 MG TABLET [...] her chronic symptoms and I considered transfer [facility] for spine evaluation however again, I feel patient is an extremely poor surgical candidate and would not be a candidate for any acute intervention. Diagnoses as of 01/08/23 0726 Radicular pain in right arm Neck muscle [...] injection 4 mg (4 mg IntraVENous Given 01/08/23 0424) ondansetron (Zofran) injection 4 mg (4 mg IntraVENous Given 01/08/23 0424) sodium chloride 0.9 % bolus 500 mL (500 mL IntraVENous New Bag 01/08/23 0613) morphine injection 2 mg (2 mg IntraVENous [...] discussed the case with Dr. Lu with [facility] who accepts patient for admission. Mario Portillo MD 01/08/23802 Patient presents to the ED via EMS from a group home facility due to neck pain. Patient states [...] RN 01/08/23 0311 documented in this encounter [facility] 01-08-2023 History and physical note Images from the original note were not included. Attending History and Physical Admit Date: 01/08/2023 PCP: Paige Rivera DO CHIEF COMPLAINT: neck pain Reason for Admission: Neck pain UTI Debility and weakness History Obtained From: patient HISTORY OF PRESENT ILLNESS: Salazar is a 72 y.o. female with past medical history below who presents with chief complaint listed above. [facility] resident sent for neck pain, which is [...] 10 mg by mouth daily. nystatin (Mycostatin) 812381 UNIT/GM powder senna-docusate (Helena-Colace) 8.6-50 MG tablet [...] CieraDeidra Mobile Relation: Child Secondary Emergency Contact: AdelaidashirazkenaJesus Mobile Relation: Spouse Preferred language: Swiss Neurosurgeon needed? No Code status: Prior -see below [...] H&P to the patient's PCP. Thank you. wireWAX Phone: 01-08-2023 History and physical note Images [...] who presents with chief complaint listed above. [facility] resident sent for neck pain, which is [...] 10 mg by mouth daily. nystatin (Mycostatin) [id number] UNIT/GM powder senna-docusate (Helena-Colace) 8.6-50 MG tablet [...] 8.6 ANIONGAP 7 LIVER PROFILE: Recent Labs 01/08/23 0427 AST 29 ALT 20 BILITOT 0.4 ALKPHOS [...] Date - 2-3 days - Location - [facility] - Pending the following - clinical improvement [...] Jesus Frank Mobile Relation: Spouse Preferred language: Swiss Neurosurgeon needed? No Code status: Prior -see below [...] PCP. Thank you. documented in this encounter [facility] 01-08-2023 Emergency department Note Changed urinary catheter with the help from MATHEUS Powers, MATHEUS Reyna, MATHEUS Scott, Nursing Urgent Care Physician Assistant. Complete bed change of performed on th patient. Dirt was wiped from inside her leg folds. Multiple wounds noted, see media images. Warm blankets provided, patient resting comfortably. Michelle Mott RN 01/08/23 0628 [facility] 01-08-2023 Emergency department Note Attempted IV 2x. Med student performing ultra sound guided IV with Dr. Vee at bedside. Michelle Mott RN 01/08/23 1917 [facility] 01-08-[address] Champion spoke with the nursing facility and states that the nursing facility was planning to change the urinary catheter today and did not have time to and that patient wanted to be brought to the ED due to the neck pain, and that is why they sent her here. Michelle Mott RN 01/08/23 0406 T [facility] 01-08-2023 Emergency department Note Bed: 12 Expected date: 01/08/23 Expected time: Means of arrival: Comments: Physicians Priya Forbes RN 01/08/23 0311 T [facility] 01-08-2023 Emergency department Triage note Patient presents to the ED via EMS from a group home facility due to neck pain. Patient states [...] with urinary catheter and heel protector boots. [facility] 01-08-2023 Physician Emergency department Note Emergency Department Encounter [facility] ED Patient: Salazar Coyle : 1950 Date of Evaluation: 01/08/2023 ED Provider: Fahad Champion DO Chief Complaint Chief Complaint Patient presents with Neck Pain Arm Pain Leg Pain WRANGELL Salazar Coyle is a 72 y.o. female [...] History Past Medical History: Diagnosis Date A-fib (CMS/[facility]) (HCC) Anemia Diabetes ([facility]) Lymphedema Obesity No past surgical history on [...] 10 mg by mouth daily. NYSTATIN (MYCOSTATIN) [id number] UNIT/GM POWDER SENNA-DOCUSATE (HELENA-COLACE) 8.6-50 MG TABLET [...] her chronic symptoms and I considered transfer [facility] for spine evaluation however again, I feel patient is an extremely poor surgical candidate and would not be a candidate for any acute intervention. Diagnoses as of 01/08/23 0726 Radicular pain in right arm Neck muscle [...] injection 2 mg (2 mg IntraVENous Given 01/08/23631) Patients symptoms are consistent with sepsis, severe [...] DO [employer] Fahad Champion DO 01/08/23 0726 Fahad Champion DO 01/08/23 0727 T [facility] 01-08-2023 Physician Emergency department Note I received [...] discussed the case with Dr. Lu with [facility] who accepts patient for admission. Mario Portillo MD 01/08/23802 [facility] 08-07-2022 Note Formatting of this n ote might be different from the original. Requested to arrange transport for discharge back to [facility]. Ambulance set up with [facility] for 4 pm, Used cot due to Vascular dementia with some confusion, hematuria with stent removal, weight of 343 lbs. ,and laser lithotripsy and stent exchange. Notified Maame GIBSON, patient , RN, Fuse Coiler, [facility] and [facility]. [facility] 08-07-2022 Note Formatting of this n ote might be different from the original. Requested to arrange transport for discharge back to [facility]. Ambulance set up with [facility] for 4 pm, Used cot due to Vascular dementia with some confusion, hematuria with stent removal, weight of 343 lbs. ,and laser lithotripsy and stent exchange. Notified Maame GIBSON, patient , RN, Fuse Coiler, [facility] and [facility]. T [facility] 08-07-2022 Miscellaneous Notes Requested to arrange transport for discharge back to [facility]. Ambulance set up with [facility] for 4 pm, Used cot due to Vascular dementia with some confusion, hematuria with stent removal, weight of 343 lbs. ,and laser lithotripsy and stent exchange. Notified Maame GIBSON, patient , RN, Fuse Coiler, [facility] and [facility]. Discharge med rec and covid transmitted to [facility] for return via [facility] per [facility] request. Return Referral placed to [facility] via [facility] per [facility] request. Await review and response regarding ability to accept. [facility] notified. Care Managment Initial Assessment Date: 08/03/2022 Patient Name: Salazar Coyle : 1950 Patient Information Source of Information: Patient Senior Tax Accountant Name/Contact Information: Deidra Vang daughter Cognition/Language: WFL - Within Functional Limits, Other (Comment) (patient off of floor, per daughter some minor dementia) Permission given to speak with patient claim representative/caregiver as indicated: Yes Confirmation of Payer with patient/family: Yes Payer Name: Aetna Medicare/ [place] Medicaid Home: No Confirmation of Primary Care Physician: Confirmed PCP Name: MD at facility Seen in last 2 years?: Yes Primary Caregiver: Other (Comment) (facility staff) If assistance needed, confirmed caregiver ready, willing and able to care for patient at discharge: No Confirmed with: nabor Gay Living Arrangements Facility: Jail[facility] Facility Name: [facility] Plan to Return: Yes Lives with: Other [...] facility Discharge Planning Actions: Continue to follow, [facility] Facility referral indicated [place] of choice: [place] of choice discussed (no choice list needed; [...] UTI. Per daughter plan is return to [facility], she is bedbound and has been at the facility for a few years now. Anticipate discharge in 1-2 days pending medical stability. LASTING ROOM MACHINE OPERATOR tasked to place return referral. TCC to [...] ureteral stent exchange Surgeon: Annette Bejarano DO Biological Science Technician Fish: Nate Churchill DO, PGY 5 Anesthesia: General endotracheal EBL: Minimal Wound classification: Clean contaminated Implants: 6 Kuwaiti by 26 cm JJ left ureteral stent tied to a 20 Kuwaiti urethral Jose catheter Drains/Packing: None Jose: 20 Kuwaiti Jose catheter with 20 cc in balloon Specimens: None sent Complications: none apparent Condition: Stable to PACU Indication for Procedure: Salazar Coyle is a 71 y.o. female who presents with left ureteral calculus. She had previously undergone stent placement during an period of severe sepsis when she was admitted at [facility]. She presents today for definitive stone management [...] knee. Stent was then removed. A 12/14 Kuwaiti short ureteral access sheath was passed over [...] the wire the stent selected was 6 Kuwaiti by 26 cm, the tether was secured to a 20 Kuwaiti Jose catheter prior to insertion of the [...] stability Outcome: Progressing documented in this encounter [facility] 08-07-2022 History of Present illness Narrative Images from the original note were not included. [facility] Wound Care Progress Note Salazar Coyle AGE: 71 y.o. GENDER: female : 1950 Subjective: HISTORY of PRESENT ILLNESS HPI Salazar Coyle is a 71 y.o. female who presents for a wound care follow up. History of Wound Context: 71 y.o. female with PMH Vascular/Alzheimer Dementia, T2DM, Chronic Jose 2/2 neurogenic bladder, Anxiety, Chronic Pain, Morbid Obesity that presented to [facility] on 08/02/2022 from outside facility ([facility]). She was admitted on 06/09 with severe sepsis due to left UPJ calculus s/p stent and abx. She was discharged to [facility] for abx and rehab. She was scheduled to see urology for ureteroscopy, but missed multiple appointments. She was transferred to [facility] ED due to hematuria. Wound Care [...] loperamide (Imodium) 2 MG capsule nystatin (Mycostatin) [id number] UNIT/GM powder oxyCODONE (Roxicodone) 5 MG immediate [...] Clean with Hibiclens then Apply Lac-Hydrin. Leave FORGING DIES FINAL FINISHER. Apply daily and PRN. Right lyons: Venous stasis dermatitis - Clean with Hibiclens then Apply Lac-Hydrin. Leave FORGING DIES FINAL FINISHER. Apply daily and PRN. Nutritional support Wound Care to follow Recommend to follow up at [facility] wound care center after hospital discharge. [...] y.o.) Date: August 07, 2022 Med Team: B Attending: Dr. Tariq Chief Complaint: Hematuria Subjective: - No acute events overnight. - Currently, pt is resting in bed. She had her tunneled line removed today. We discussed dc back to [facility] and she was agreeable. - Her tunneled line was removed by IR this morning. This morning she has no acute complaints. Agreeable to return to [facility]. Review of Systems Constitutional: Negative for chills, [...] will discuss with TCC about return to [facility] - Goals of Care: FULL CODE - [...] was removed this morning. She returns to [facility] today in stable condition. Has a left [...] 5PM-7AM: Page "AI2" or "AI3" (In house Hydroelectric Component Machinist) Images from the original note were not included. [facility] - Infectious Diseases Attending Progress Note [...] 10.5 (L) 08/06/2022 0238 HCT 32.0 (L) 08/06/20228 PLT 235 08/06/20228 GRANULOCYTES 46.9 04/14/2021 0254 LYMPHOPCT 34.6 08/06/2022237 MONOPCT 7.1 08/06/2022237 LABEOS 5.3 04/14/2021 0254 BASOPCT 0.5 08/06/2022237 NEUTROABS 5.3 08/06/2022237 Micro: 08/04 urine negative Lines: CVC PIV Radiography/Echo/Other: No [...] y.o.) Date: August 06, 2022 Med Team: B Attending: Dr. Rubio Chief Complaint: Hematuria Subjective: [...] - Diet: Carb-Control Associated attestation - Jamie Rubio DO - 08/06/2022 11:36 AM EDT I have [...] y.o.) Date: August 05, 2022 Med Team: B Attending: Dr. Rubio Chief Complaint: Hematuria Subjective: - No acute events overnight. - Currently, pt resting in bed. She has no complaints at this time. We discussed the plan of waiting for culture results and changing her to PO abx with the hope to be able to DC this vs Sunday. She was agreeable at this [...] recs Dispo: plan to DC back to [facility] pending urine culture and ID recs. Likely [...] can be removed. 7AM-5PM: contact resident on "[facility] Med B" team (found by hoovering [...] from the original note were not included. [facility] Wound Care Progress Note Salazar Coyle AGE: 71 y.o. GENDER: female : 1950 Subjective: HISTORY of PRESENT ILLNESS HPI Salazar Coyle is a 71 y.o. female who presents for a wound care follow up. History of Wound Context: 71 y.o. female with PMH Vascular/Alzheimer Dementia, T2DM, Chronic Jsoe 2/2 neurogenic bladder, Anxiety, Chronic Pain, Morbid Obesity that presented to [facility] on 08/02/2022 from outside facility ([facility]). She was admitted on 06/09 with severe sepsis due to left UPJ calculus s/p stent and abx. She was discharged to [facility] for abx and rehab. She was scheduled to see urology for ureteroscopy, but missed multiple appointments. She was transferred to [facility] ED due to hematuria. Wound Care consulted for bilateral LE. Patient resting in bed. IM provider at bedside. PAST MEDICAL HISTORY Past Medical History: Diagnosis Date A-fib (CMS/HCC) (HCC) Anemia Diabetes ([facility]) Lymphedema Obesity PAST SURGICAL HISTORY History reviewed. [...] loperamide (Imodium) 2 MG capsule nystatin (Mycostatin) [id number] UNIT/GM powder oxyCODONE (Roxicodone) 5 MG immediate [...] Clean with Hibiclens then Apply Lac-Hydrin. Leave FORGING DIES FINAL FINISHER. Apply daily and PRN. Nutritional support Wound Care to follow Recommend to follow up at [facility] wound care center after hospital discharge. [...] Wound care has been following patient at [facility] also ongoing skin care for the venous [...] 5PM-7AM: Page "AI2" or "AI3" (In house Hydroelectric Component Machinist) UROLOGY PROGRESS NOTE PATIENT NAME: Salazar Coyle [...] found for: PHOS PT/INR: Recent Labs 08/03/22 014 PROTIME 10.5 INR 1.0 U/A: No results [...] office scope not possible. Dr Bejarano 08/04/22 183 Duc Frances MD PGY-3, Urology 08/04/2022 7:08 [...] on 06/15/22, 344# on 07/11/22. Nutrition Assessment: [facility] vascular and Alzheimer dementia, T2DM, chronic jose 2/2 neurogenic bladder, anxiety, chronic pain, morbid obesity, history of MDR UTI. Recently admitted 06/09 with severe sepsis due to left UPJ calculus- s/p L ureteral stent placement. She was discharged to [facility] for rehab and antibiotics. Patient presented to ED 08/02 with hematuria. Urology is following. Patient is scheduled for [facility] today. Patient has been off the nursing unit. Interview is pending. Estimated Daily Nutrient Needs: Energy Requirements Based On: Kcal/kg Weight Used for Energy Requirements: [place] Weight for Energy Calculation (kg): 59 kg Total Energy Requirements (kcals/day): 8376-2214 kcals per day (25-30) Weight Used for Protein Requirements: [place] Weight in Kg Used for Protein Requirements: [...] kg (343 lb 14.7 oz) (estimated 08/02/22) [place] Body Weight (lbs) (Calculated): 130 lbs [place] Body Weight (Kg) (Calculated): 59 kg Weight [...] soon to determine Yesenia Dave RD Contact: [phone] Med Team Progress Note Salazar Coyle : [...] attestation on H&P documented in this encounter [facility] 08-07-2022 Note Formatting of this n ote might be different from the original. Discharge med rec and covid transmitted to [facility] for return via [facility] per TCC request. [facility] 08-07-2022 Note Formatting of this n ote might be different from the original. Discharge med rec and covid transmitted to [facility] for return via [facility] per TCC request. [facility] 08-07-2022 Hospital course Narrative Internal Medicine: Med [...] a 71 y.o. female that presented to [facility] on 08/02/2022 and was admitted for hematuria. She was previously admitted in may where she was diagnosed with sepsis 2/2 UPJ calculus. She had a ureteral stent placed during that admission, but the stone was still present. She was DC to [facility] with plans for follow up with urology for lithotripsy and stent exchange. She was unable to make it to the follow up appointment due to decreased mobility and lack of transportation. On the day of admission the urology office was called due to concerns for hematuria and the pt was told to present to [facility] ED for medical admit. On examination [...] was removed. She was discharged back to [facility] in stable condition. Disposition: [facility] Activity: up with assist Diet: Adult diet [...] skin Nightly. lisinopril 10 MG tablet nystatin 972547 UNIT/GM powder Commonly known as: Mycostatin Oyster [...] None Follow Up Appointment(s): Paige Rivera DO [address] [facility] [address] Call in 1 week(s) For hospital follow [...] discharge <30 minutes. documented in this encounter [facility] 08-07-2022 Nurse Note To IR for tunnel line removal , pt with a Right internal jugular tunnel central line Pt positioned, prepped and draped per protocol. Pro glide double lumen catheter removed with cuff and catheter length intact site post hold no bleeding or hematoma site benign . Dry dressing applied. Pt tolerated well denies complaints [facility] 08-07-2022 Nurse Note To IR for tunnel [...] this AM. Attempts made by phlebotomy and life underwriter. Pt educated. Verbalizes understanding. Dr. Jha notified documented in this encounter [facility] 08-07-2022 Nurse Note Pt refused morning labs and refusing turns. Dr. Beaulieu made aware. [facility] 08-06-2022 Nurse Note Pt refusing turns. Yelling out and swatting at staff when attempting to turn and see if pt had BM. [facility] 08-05-2022 Nurse Note Pt refused AM lab draw [facility] 08-04-2022 Consult note Associated Order (s): IP CONSULT TO INFECTIOUS DISEASES Images from the original note were not included. [facility] - Infectious Diseases Attending Consult [...] Daily Nate Kerline, DO 10 mg at 05/05/23 0931 melatonin tablet 3 mg 3 mg Oral [...] PRN Nate Kerline, DO 5 mg at 08/03/22 214 polyethylene glycol (PEG) 3350 (Miralax) packet 17 [...] time stamp for accounting for open encounter[facility] Consult note Associated Order (s): IP CONSULT TO INFECTIOUS DISEASES Images from the original note were not included. [facility] - Infectious Diseases Attending Consult [...] Daily Nate Kerline, DO 5 mg at 08/04/22 09 Calcium Carb-Cholecalciferol 500-5 MG-MCG per tablet 1 [...] breakfast Nate Kerline, DO 325 mg at 08/04/22 09 furosemide (Lasix) tablet 40 mg 40 mg Oral BID [place], [place] [address] glucagon (human recombinant) injection 1 mg 1 mg IntraMUSCular PRN Nate Kerline, DO glucose oral gel 15 g 15 g Oral PRN Nate Kerline, DO insulin glargine (Lantus) injection 10 Units 10 Units SubCUTAneous Nightly Nate Kerline, DO 10 Units at 08/03/222134 Insulin Lispro (Humalog) injection 0-12 Units 0-12 Units SubCUTAneous TID WC Nate Kerline, DO 4 Units at 08/04/2234 lisinopril tablet 10 mg 10 mg Oral [...] Daily Nate Kerline, DO 50 mg at 08/04/22930 sodium chloride 0.9 % infusion 5-250 mL/hr [...] Ertapenem to 06/24. No recent antibiotics from ECF in July Impression: Nephrolithiasis, s/p cystoscopy, lithotripsy [...] from the original note were not included. [facility] Wound Care CONSULT Note Salazar Coyle AGE: 71 y.o. GENDER: female : 1950 Subjective: HISTORY of PRESENT ILLNESS HPI Salazar Coyle is a 71 y.o. female who presents for a wound consult. History of Wound Context: 71 y.o. female with PMH Vascular/Alzheimer Dementia, T2DM, Chronic Jose 2/2 neurogenic bladder, Anxiety, Chronic Pain, Morbid Obesity that presented to [facility] on 08/02/2022 from outside facility ([facility]) She was admitted on 06/09 with severe sepsis due to left UPJ calculus s/p stent and abx. She was discharged to [facility] for abx and rehab. She was scheduled to see urology for ureteroscopy, but missed multiple appointments. She was transferred to [facility] ED due to hematuria. Wound Care consulted for bilateral LE. Patient resting in bed at time of visit. PAST MEDICAL HISTORY Past Medical History: Diagnosis Date A-fib ([facility]) (HCC) Anemia Diabetes ([facility]) Lymphedema Obesity PAST SURGICAL HISTORY History reviewed. [...] loperamide (Imodium) 2 MG capsule nystatin (Mycostatin) 162239 UNIT/GM powder oxyCODONE (Roxicodone) 5 MG immediate [...] Venous stasis dermatitis - Apply Lac-Hydrin. Leave FORGING DIES FINAL FINISHER. Apply daily and PRN. Right lyons: Venous stasis dermatitis - Apply Lac-Hydrin. Leave FORGING DIES FINAL FINISHER. Apply daily and PRN. Nutritional support Wound Care to follow Recommend to follow up at [facility] wound care center after hospital discharge. [...] loperamide (Imodium) 2 MG capsule nystatin (Mycostatin) 991736 UNIT/GM powder oxyCODONE (Roxicodone) 5 MG immediate [...] MD Urology PGY-3 08/03/2022 6:29 AM Page Sheet Sewer Resident with questions Associated attestation - Annette [...] additional questions or concerns Annette Bejarano DO [facility] Urology documented in this encounter [facility] 08-04-2022 Hospital Discharge instructions Annette Bejarano DO [...] done either at your pre-operative day at [facility], or with your regular doctor. - Some [...] done either at your pre-operative day at [facility], or with your regular doctor. - Some [...] you have any questions, please call . PAOLO Lee - 08/04/2022 8:04 AM EDT Continuity of Care Form Patient Name: Salazar Coyle : 1950 Admit date: 08/02/2022 Discharge date: 08/07/22 Code Status Order: Full Code Advance Directives: Y Admitting Physician: Deacon Tariq MD PCP: Paige Rivera DO Discharging Nurse: donald garrido Discharging Hospital Unit/Room#: W6-192/W6-912 A Discharging Unit Emergency Contact: Extended Emergency Contact Information Primary Emergency Contact: Deidra Vang Mobile Relation: Child Secondary Emergency Contact: Jesus Frank Mobile Relation: Spouse Preferred language: Swiss Neurosurgeon needed? No Past Surgical History: History reviewed. [...] stent, initial encounter (HCC) Edema Septic shock ([facility]/HCC) (HCC) Hypertension Foot ulcer (HCC) Hyperlipemia Bladder spasm Type 2 diabetes mellitus with hyperglycemia ([facility]) ([facility]) Overview Signed 01/14/2022 2:38 PM by Interface, [...] Known to Doctor Izaguirre through consultation at [facility]. Long acting insulin: Insulin used for this [...] Chronic pain Osteoarthrosis PAF (paroxysmal atrial fibrillation) ([facility]) ([facility]) Cognitive decline Morbid obesity with BMI of 60.0-69.9, adult (HCC) 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 ([facility]) Recurrent UTI Cerebrovascular accident ([facility]) Hyperglycemia Chronic indwelling Jose catheter Overview Signed [...] assistance Toileting Total assistance Feeding Total assistance Communications Editor Total assistance Med Delivery yes Wound Care [...] Score: @READMISSIONRISKDETAILS@ Discharging to Facility/ Agency Name: [facility] Address: [address] [place] [address] [place] [address] Fax: Dialysis Facility (if applicable) Name: Address: Dialysis Schedule: Phone: Fax: Iridologist/Automatic Punch Press Operator signature: ICIAN SECTION Prognosis: good Condition at Discharge: stable Rehab Potential (if transferring to Rehab): fair Recommended Labs or Other Treatments After Discharge: Repeat BMP in 1 week to monitor kidney function. Physician Certification: I certify the above information and transfer of Salazar Coyle is necessary for the continuing treatment of the diagnosis listed and that she requires group home facility for less than 30 days. Update Admission H&P: No change in H&P PHYSICIAN SIGNATURE: documented in this encounter [facility] 08-04-2022 Nurse Note Pt refused labs this AM. Attempts made by phlebotomy and life underwriter. Pt educated. Verbalizes understanding. Dr. Jha notified [facility] 08-03-2022 Note Formatting of this n ote might be different from the original. [facility]. Await review and response regarding ability to accept. TCC notified. [facility] 08-03-2022 Note Formatting of this n ote might be different from the original. Return Referral placed to [facility] via [facility] per TCC request. Await review and response regarding ability to accept. TCC notified. [facility] 08-03-2022 Note Formatting of this n ote might be different from the original. Care Managment Initial Assessment Date: 08/03/2022 Patient Name: Salazar Coyle : 1950 Patient Information Source of Information: Patient Senior Tax Accountant Name/Contact Information: Deidra Vang daughter Cognition/Language: WFL - Within Functional Limits, Other (Comment) (patient off of floor, per daughter some minor dementia) Permission given to speak with patient claim representative/caregiver as indicated: Yes Confirmation of Payer with patient/family: Yes Payer Name: Aetna Medicare/ [place] Medicaid Home: No Confirmation of Primary Care Physician: Confirmed PCP Name: MD at facility Seen in last 2 years?: Yes Primary Caregiver: Other (Comment) (facility staff) If assistance needed, confirmed caregiver ready, willing and able to care for patient at discharge: No Confirmed with: nabor Gay Living Arrangements Facility: [facility] Facility Name: [facility] Plan to Return: Yes Lives with: Other (Comment) (at facility) Support Systems: Children, Comments (Other) (facility staff) Activities of Daily Living Ambulation: Total Care Bathing/Dressing: Total Care Elimination/Continence/Toileting: Total Care Feeding: Assistance Who Assists with Activities of Daily Living: facility staff Instrumental Activities of Daily Living Prescription Coverage: Yes Pharmacy Used: facility Medication Management: Transportation/Shopping: Assistance Provider Transportation/Shopping Assistance Provider Name: [facility] transport when needed Transportation Mode: Needs Assistance with Transportation at Discharge: Yes Meal Preparation: Assistance Provider Meal Prep Assistance Provider Name: facility Laundry/Cleaning: Assistance Provider Laundry/Cleaning Assistance Provider Name: facility Finances/Bill Paying: Communication: Independent Types of Care Services/Equipment Utilized Durable Medical Equipment: Hospital Bed Patient's Goal/Discharge Plan Patient expects to be discharged to: return to facility Discharge Planning Actions: Continue to follow, [facility] Facility referral indicated [place] choice: [place] of [place] discussed (no choice list needed; [...] UTI. Per daughter plan is return to [facility], she is bedbound and has been at the facility for a few years now. Anticipate discharge in 1-2 days pending medical stability. LASTING ROOM MACHINE OPERATOR tasked to place return referral. TCC to continue to follow. Christina Rivera RN [facility] 08-03-2022 Note Formatting of this n ote might be different from the original. Care Managment Initial Assessment Date: 08/03/2022 Patient Name: Salazar Coyle : 1950 Patient Information Source of Information: Patient Senior Tax Accountant Name/Contact Information: Deidra Vang daughter Cognition/Language: WFL - Within Functional Limits, Other (Comment) (patient off of floor, per daughter some minor dementia) Permission given to speak with patient claim representative/caregiver as indicated: Yes Confirmation of Payer with patient/family: Yes Payer Name: Aetna Medicare/ [place] Medicaid Home: No Confirmation of Primary Care Physician: Confirmed PCP Name: MD at facility Seen in last 2 years?: Yes Primary Caregiver: Other (Comment) (facility staff) If assistance needed, confirmed caregiver ready, willing and able to care for patient at discharge: No Confirmed with: nabor Gay Living Arrangements Facility: [facility] Facility Name: [facility] Plan to Return: Yes Lives with: Other [...] facility Discharge Planning Actions: Continue to follow, [facility] Facility referral indicated [place] of choice: [place] of choice discussed (no choice list needed; [...] UTI. Per daughter plan is return to [facility], she is bedbound and has been at the facility for a few years now. Anticipate discharge in 1-2 days pending medical stability. LASTING ROOM MACHINE OPERATOR tasked to place return referral. TCC to continue to follow. Christina Rivera RN [facility] 08-03-2022 Note Formatting of this n ote might be different from the original. Patient very drowsy, unable to answer questions or follow commands. VSS. Dr. Long at bedside. Orders to give patient additional time and continue to monitor. [facility] 08-03-2022 Note Formatting of this n ote might be different from the original. Patient very drowsy, unable to answer questions or follow commands. VSS. Dr. Long at bedside. Orders to give patient additional time and continue to monitor. [facility] 08-03-2022 Note Formatting of this n ote might be different from the original. UROLOGY OPERATIVE REPORT PATIENT NAME: Salazar Coyle DATE OF : 1950 TODAY'S DATE: 08/03/2022 PreOp Dx: Left ureteral calculus, left stent PostOp Dx: Same Operation: Cystoscopy Left ureteroscopy with laser lithotripsy Left ureteral stent exchange Surgeon: Annette Bejarano DO Biological Science Technician Fish: Nate Churchill DO, PGY 5 Anesthesia: General endotracheal EBL: Minimal Wound classification: Clean contaminated Implants: 6 Kuwaiti by 26 cm JJ left ureteral stent tied to a 20 Kuwaiti urethral Jose catheter Drains/Packing: None Jose: 20 Kuwaiti Jose catheter with 20 cc in balloon Specimens: None sent Complications: none apparent Condition: Stable to PACU Indication for Procedure: Salazar Coyle is a 71 y.o. female who presents with left ureteral calculus. She had previously undergone stent placement during an period of severe sepsis when she was admitted at [facility]. She presents today for definitive stone management [...] knee. Stent was then removed. A 12/14 Kuwaiti short ureteral access sheath was passed over [...] the wire the stent selected was 6 Kuwaiti by 26 cm, the tether was secured to a 20 Kuwaiti Jose catheter prior to insertion of the [...] this time she is deemed stone free [facility] 08-03-2022 Note Formatting of this n ote might be different from the original. UROLOGY OPERATIVE REPORT PATIENT NAME: Salazar Coyle DATE OF : 1950 TODAY'S DATE: 08/03/2022 PreOp Dx: Left ureteral calculus, left stent PostOp Dx: Same Operation: Cystoscopy Left ureteroscopy with laser lithotripsy Left ureteral stent exchange Surgeon: Annette Bejarano DO Biological Science Technician Fish: Nate Churchill DO, PGY 5 Anesthesia: General endotracheal EBL: Minimal Wound classification: Clean contaminated Implants: 6 Kuwaiti by 26 cm JJ left ureteral stent tied to a 20 Kuwaiti urethral Jose catheter Drains/Packing: None Jose: 20 Kuwaiti Jose catheter with 20 cc in balloon Specimens: None sent Complications: none apparent Condition: Stable to PACU Indication for Procedure: Salazar Coyle is a 71 y.o. female who presents with left ureteral calculus. She had previously undergone stent placement during an period of severe sepsis when she was admitted at [facility]. She presents today for definitive stone management [...] knee. Stent was then removed. A 12/14 Kuwaiti short ureteral access sheath was passed over [...] the wire the stent selected was 6 Kuwaiti by 26 cm, the tether was secured to a 20 Kuwaiti Jose catheter prior to insertion of the [...] this time she is deemed stone free [facility] 08-03-2022 Consult note Associated Order (s): IP WOUND CARE NURSE CONSULT TO EVAL Images from the original note were not included. [facility] Wound Care CONSULT Note Salazar Coyle AGE: 71 y.o. GENDER: female : 1950 Subjective: HISTORY of PRESENT ILLNESS HPI Salazar Coyle is a 71 y.o. female who presents for a wound consult. History of Wound Context: 71 y.o. female with PMH Vascular/Alzheimer Dementia, T2DM, Chronic Jose 2/2 neurogenic bladder, Anxiety, Chronic Pain, Morbid Obesity that presented to [facility] on 08/02/2022 from outside facility ([facility]) She was admitted on 06/09 with severe sepsis due to left UPJ calculus s/p stent and abx. She was discharged to [facility] for abx and rehab. She was scheduled to see urology for ureteroscopy, but missed multiple appointments. She was transferred to [facility] ED due to hematuria. Wound Care consulted for bilateral LE. Patient resting in bed at time of visit. PAST MEDICAL HISTORY Past Medical History: Diagnosis Date A-fib ([facility]) (HCC) Anemia Diabetes ([facility]) Lymphedema Obesity PAST SURGICAL HISTORY History reviewed. [...] loperamide (Imodium) 2 MG capsule nystatin (Mycostatin) 824753 UNIT/GM powder oxyCODONE (Roxicodone) 5 MG immediate [...] to follow Recommend to follow up at [facility] wound care center after hospital discharge. [...] my own independent evaluation of this patient. [facility] 08-03-2022 Consult note Associated Order (s): IP [...] loperamide (Imodium) 2 MG capsule nystatin (Mycostatin) 631845 UNIT/GM powder oxyCODONE (Roxicodone) 5 MG immediate [...] MD Urology PGY-3 08/03/2022 6:29 AM Page Sheet Sewer Resident with questions Associated attestation - Annette [...] additional questions or concerns Annette Bejarano DO [facility] Urology [facility] [employer] Work Phone: 08-02-2022 Plan of care note [...] Adult Goal: Maintains hematologic stability Outcome: Progressing [facility] 08-02-2022 Emergency department Note Message sent to pharmacy, still have not received Meropenem, will start once received. Geovani Dougherty RN 08/02/22 9444 [facility] 08-02-2022 Emergency department Note Message sent to pharmacy, still have not received Meropenem, will start once received. Geovani Dougherty RN 08/02/22 1844 Transport requested for patient at this time. Geovani Dougherty RN 08/02/22 1820 Meal tray ordered for patient at this time. Geovani Dougherty RN 08/02/22 1819 Patient has a 20Fr-30mL balloon catheter, cart ordered at this time. Geovani Dougherty RN 08/02/22 1727 Report from balloon sander Chance, patient is from [facility], here for a jose catheter [...] Diagnosis Date A-fib (CMS/HCC) (HCC) Anemia Diabetes ([facility]) Lymphedema Obesity SURGICAL HISTORY History reviewed. No [...] loperamide (Imodium) 2 MG capsule nystatin (Mycostatin) 747570 UNIT/GM powder oxyCODONE (Roxicodone) 5 MG immediate [...] Culture. Procedure Abnormality Status --------- ------ Complete Urinalysis[[id number]] Please view results for these tests on [...] due to indwelling ureteral stent, initial encounter ([facility]) External records reviewed: Inpatient notes reviewed prior admission with left obstructing renal calculus and urosepsis Diagnostics interpreted by me and the attending: none Discussions with other clinicians: Admitting team hospitalist and [facility] urology Chronic conditions impacting care: none Social determinants of health affecting care: Transportation difficulty ED Medications managed: Medications meropenem (Merrem) 2,000 mg in sodium chloride 0.9 % 100 mL IVPB (has no administration in time range) Prescription drugs considered: PROCEDURES: Unless otherwise noted below, none Procedures FINAL IMPRESSION 1. Inflammatory reaction due to indwelling ureteral stent, initial encounter ([facility]) DISPOSITION Admit 08/02/2022 05:51:37 PM PATIENT REFERRED [...] Newby MD Resident 08/02/222003 Emergency Department Encounter [facility] EMERGENCY DEPT Patient: Salazar Coyle : [...] [employer] Carlos Ayala DO 08/02/22 184 Carlos Ayala DO 08/02/227 Bed: 09 Expected date: 08/02/22 Expected time: Means of arrival: Comments: Offload Caitlin Johnson RN 08/02/22 1549 documented in this encounter [facility] 08-02-2022 Emergency department Note Transport requested for patient at this time. Geovani Dougherty RN 08/02/22 1820 [facility] 08-02-2022 Emergency department Note Meal tray ordered for patient at this time. Geovani Dougherty RN 08/02/22 1819 [facility] 08-02-2022 History and physical note Images from the original note were not included. Internal Medicine: Med Team Initial History and Physical Salazar Coyle : 1950(71 y.o.) Date: August 02, 2022 TEAM: B Attending: Dr. Tariq Subjective: Chief Complaint: Hematuria HPI Salazar Coyle is a 71 y.o. female with PMH Vascular/Alzheimer Dementia, T2DM, Chronic Jose 2/2 neurogenic bladder, Anxiety, Chronic Pain, Morbid Obesity that presented to [facility] on 08/02/2022 from outside facility ([facility]) She was admitted on 06/09 with severe sepsis (ESBL E. Coli bacteremia) due to left UPJ calculus s/p stent and abx. She was discharged to [facility] for abx and rehab. She was scheduled to see urology for ureteroscopy, but missed multiple appointments. She was transferred to [facility] ED due to hematuria. In the [...] sedated Past Medical History: Diagnosis Date A-fib ([facility]/HCC) (HCC) Anemia Diabetes (HCC) Lymphedema Obesity History [...] 40 mg in the evening. 07/11/22 Historical ProviderMD insulin glargine (Lantus) 100 UNIT/ML injection Inject 10 Units under the skin Nightly. 06/16/22 06/16/23 Elise Park MD Insulin Lispro (Humalog) 100 UNIT/ML solution injection Inject 0-18 Units under the skin 4 times daily (before meals and nightly). 06/16/22 06/16/23 Elise Park MD lisinopril 10 MG tablet Take 10 mg by mouth daily. Historical Provider, loperamide (Imodium) 2 MG capsule 07/16/21 Historical ProviderMD nystatin (Mycostatin) 036925 UNIT/GM powder 03/22/22 Historical ProviderMD oxyCODONE (Roxicodone) 5 MG immediate release tablet 04/17/22 Historical Provider, senna-docusate (Helena-Colace) 8.6-50 MG tablet Take 100 tablets by mouth Every 24 hours. 04/06/21 Historical ProviderMD Objective: Vitals: 08/02/22 1528 BP: (!) 147/38 [...] due to indwelling ureteral stent, initial encounter ([facility]) Chronic Indwelling Jose Catheter 2/2 neurogenic bladder [...] Obesity (BMI >40) - Disposition: Admit to [facility]. - Given the signs and symptoms associated [...] providing patient education and counseling. 7AM-5PM: Kay Marie who wrote note today from Service 5PM-7AM: Page "AI2" or "AI3" (In house Hydroelectric Component Machinist) [facility] 08-02-2022 History and physical note Images from the original note were not included. Internal Medicine: Med Team Initial History and Physical Salazar Coyle : 1950(71 y.o.) Date: August 02, 2022 TEAM: Alvaro Attending: Dr. Tariq Subjective: Chief Complaint: Hematuria DRE Coyle is a 71 y.o. female with PMH Vascular/Alzheimer Dementia, T2DM, Chronic Jose 2/2 neurogenic bladder, Anxiety, Chronic Pain, Morbid Obesity that presented to [facility] on 08/02/2022 from outside facility ([facility]) She was admitted on 06/09 with severe sepsis (ESBL E. Coli bacteremia) due to left UPJ calculus s/p stent and abx. She was discharged to [facility] for abx and rehab. She was scheduled to see urology for ureteroscopy, but missed multiple appointments. She was transferred to [facility] ED due to hematuria. In the [...] Diagnosis Date A-fib (CMS/HCC) (HCC) Anemia Diabetes ([facility]) Lymphedema Obesity History reviewed. No pertinent surgical [...] MG capsule 07/16/21 Historical Provider, nystatin (Mycostatin) 566172 UNIT/GM powder 03/22/22 Historical Provider, oxyCODONE (Roxicodone) [...] due to indwelling ureteral stent, initial encounter ([facility]) Chronic Indwelling Jose Catheter 2/2 neurogenic bladder [...] 5PM-7AM: Page "AI2" or "AI3" (In house Hydroelectric Component Machinist) documented in this encounter [facility] 08-02-2022 Emergency department Note Patient has a 20Fr-30mL balloon catheter, cart ordered at this time. Geovani Dougherty RN 08/02/22 1727 [facility] 08-02-2022 Emergency department Note Report from balloon sander Chance, patient is from [facility], here for a jose catheter [...] to monitor. Geovani Dougherty RN 08/02/22 1729 [facility] 08-02-2022 Emergency department Note Bed: 09 Expected date: 08/02/22 Expected time: Means of arrival: Comments: Offload Caitlin Johnson RN 08/02/22 1549 [facility] 08-02-2022 Physician Emergency department Note EMERGENCY DEPARTMENT [...] loperamide (Imodium) 2 MG capsule nystatin (Mycostatin) 829437 UNIT/GM powder oxyCODONE (Roxicodone) 5 MG immediate [...] Culture. Procedure Abnormality Status --------- ------ Complete Urinalysis[[id number]] Please view results for these tests on [...] due to indwelling ureteral stent, initial encounter ([facility]) External records reviewed: Inpatient notes reviewed prior admission with left obstructing renal calculus and urosepsis Diagnostics interpreted by me and the attending: none Discussions with other clinicians: Admitting team hospitalist and [facility] Chronic conditions impacting care: none Social determinants of health affecting care: Transportation difficulty ED Medications managed: Medications meropenem (Merrem) 2,000 mg in sodium chloride 0.9 % 100 mL IVPB (has no administration in time range) Prescription drugs considered: PROCEDURES: Unless otherwise noted below, none Procedures FINAL IMPRESSION 1. Inflammatory reaction due to indwelling ureteral stent, initial encounter ([facility]) DISPOSITION Admit 08/02/2022 05:51:37 PM PATIENT REFERRED [...] Medicine Provider Milly Newby MD Resident 08/02/222003 [employer] Phone: 08-02-2022 Physician Emergency department Note Emergency Department Encounter [facility] EMERGENCY DEPT Patient: Salazar Coyle : [...] Ayala DO 08/02/22 1848 Carlos [facility]ala [facility]02/[facility]: [facility]22 Telephone encounter Note Spoke with Deidra Vang (daughter and POA) Also office talked to Blu at [facility], who confirmed patient is being transferred to [facility] vis EMS today 08/02/22 This is due to blood in her urine Explained this is likely due to her stone/stent/chronic jose She NEEDS to have ureteroscopy which is currently scheduled for tomorrow 08/03/22 MUST be at [facility] due to patient comorbidities, habitus, need for JENIFER laser If patient is admitted to medicine service at [facility] then we can proceed with surgery as planned on 08/03/22 [facility] [employer] Work Phone: 08-02-2022 Miscellaneous Notes Spoke with Deidra Vang (daughter and POA) Also office talked to Blu at [facility], who confirmed patient is being transferred to [facility] vis EMS today 08/02/22 This is due to blood in her urine Explained this is likely due to her stone/stent/chronic jose She NEEDS to have ureteroscopy which is currently scheduled for tomorrow 08/03/22 MUST be at [facility] due to patient comorbidities, habitus, need for JENIFER laser If patient is admitted to medicine service at [facility] then we can proceed with surgery as planned on 08/03/22 Abdi from [facility] left a VM stating she will try calling our office tomorrow as well. Patient name and call back number given, but no other info. Will route to Yolanda as COUNTS INCLUDE 234 BEDS AT THE [facility] and phone number for the patient's staff ([phone] extension [phone]) Contacted [facility] to confirm patient has transportation and will [...] arranged and confirmed. She must be at [facility] AT LEAST 2 HOURS PRIOR to schedule start time for her surgery this week Thank you ! documented in this encounter [facility] 08-02-2022 Miscellaneous Notes Spoke with Deidra Vang (daughter and POA) Also office talked to Blu at [facility], who confirmed patient is being transferred to [facility] vis EMS today 08/02/22 This is due to blood in her urine Explained this is likely due to her stone/stent/chronic jose She NEEDS to have ureteroscopy which is currently scheduled for tomorrow 08/03/22 MUST be at [facility] due to patient comorbidities, habitus, need for JENIFER laser If patient is admitted to medicine service at [facility] then we can proceed with surgery as planned on 08/03/22 Abdi from [facility] left a VM stating she will try calling our office tomorrow as well. Patient name and call back number given, but no other info. Will route to Gregory as COUNTS INCLUDE 234 BEDS AT THE [facility] and phone number for the patient's staff ([phone] extension [phone]) Contacted [facility] to confirm patient has transportation and will [...] arranged and confirmed. She must be at [facility] AT LEAST 2 HOURS PRIOR to schedule start time for her surgery this week Thank you ! documented in this encounter [facility] 08-02-2022 Telephone encounter Note Abdi from [facility] left a VM stating she will try calling our office tomorrow as well. Patient name and call back number given, but no other info. Will route to Gregory as FYI and phone number for the patient's staff ([phone] extension [phone]) [facility] 08-01-2022 Telephone encounter Note Contacted [facility] to confirm patient has transportation and will arrive 2 hours prior to surgery. The lady I spoke with stated she was unsure and the nurse that takes care of this patient was not available at the moment. She is going to give the information to the patient's nurse in charge and give me a call back ARIANE personally to confirm [facility] 08-01-2022 Miscellaneous Notes Contacted [facility] to confirm patient has transportation and will [...] Thank you ! documented in this encounter [facility] 07-31-2022 Telephone encounter Note Patient was a [...] her surgery this week Thank you ! [facility] [employer] Work Phone: 07-20-2022 Telephone encounter Note Received call back from [facility], they are trying to find a transportation company to get patient to the hospital. She is aware of the risks having the tunneled line in place for almost a month after ATB has been completed. She stated she will work on this and if necessary she will have 911 transport to hospital. [facility] 07-20-2022 Miscellaneous Notes Received call back from [facility], they are trying to find a transportation company to get patient to the hospital. She is aware of the risks having the tunneled line in place for almost a month after ATB has been completed. She stated she will work on this and if necessary she will have 911 transport to hospital. Call placed to [facility] in regards to tunneled line removal that was scheduled for 07/13 then rescheduled for today 07/18/22. Left message for DON to return call due to line still not removed. documented in this encounter [facility] 07-18-2022 Telephone encounter Note Call placed to [facility] in regards to tunneled line removal that was scheduled for 07/13 then rescheduled for today 07/18/22. Left message for DON to return call due to line still not removed. [facility] 06-26-2022 Telephone encounter Note Received call from Rocio BARRETO advised that instructions have already been faxed and verbalized to ESTEVAN Singh . Rocio verbalizes understanding . Reiterated t/d/l and when to report [facility] 06-26-2022 Miscellaneous Notes Received call from Rocio BARRETO advised that instructions have already been faxed and verbalized to ESTEVAN Singh . Rocio verbalizes understanding . Reiterated t/d/l and when to report Spoke with patient's daughter Deidra. She advised me to call [employer] to give instructions and make the m aware as well. Spoke with nurse Singh and gave surgery d/t/l and instructions. She asked to have them faxed over as well at [phone]. OR Request for Darci PROCEDURE: cystoscopy, left ureteroscopy with laser lithotripsy and stent exchange DIAGNOSIS: left UPJ calculus FACILITY: [facility] DETAILS: OUTPT ANESTHESIA: GENERAL TIME REQUESTED: 2hr DATE REQUESTED: 3-4 weeks SURGERY ORDERS: will be Placed by Jimmy Bejarano POST OP FOLLOW UP: TBD REP REQUESTED: No SPECIAL NEEDS: Must be OR 14 or [address] [facility] due to body habitus/ medical comorbidities PAT: No recently admitted MEDICAL CLEARANCE: no Currently admitted at [facility] Nabor Gay is POA Phone number in chart documented in this encounter [facility] 06-20-2022 Telephone encounter Note Spoke with patient's daughter Deidra. She advised me to call [employer] to give instructions and make the m aware as well. Spoke with nurse Samantha and gave surgery d/t/l and instructions. She asked to have them faxed over as well at [phone]. [facility] 06-20-2022 Miscellaneous Notes Spoke with patient's daughter Deidra. She advised me to call [facility] to give instructions and make the m aware as well. Spoke with nurse Samantha and gave surgery d/t/l and instructions. She asked to have them faxed over as well at [phone]. OR Request for Darci PROCEDURE: cystoscopy, left ureteroscopy with laser lithotripsy and stent exchange DIAGNOSIS: left UPJ calculus FACILITY: [facility] DETAILS: OUTPT ANESTHESIA: GENERAL TIME REQUESTED: 2hr DATE REQUESTED: 3-4 weeks SURGERY ORDERS: will be Placed by Jimmy Bejarano POST OP FOLLOW UP: TBD REP REQUESTED: No SPECIAL NEEDS: Must be OR 14 or [address] [facility] due to body habitus/ medical comorbidities PAT: No recently admitted MEDICAL CLEARANCE: no Currently admitted at [facility] Nabor Gay is POA Phone number in chart documented in this encounter [facility] 06-16-2022 History of Present illness Narrative [facility] - Infectious Diseases Attending Progress Note [...] 112 (H) 06/16/2022 0011 CO2 28 06/16/2022 0011 BUN 47 (H) 06/16/2022 0011 CREATININE 0.85 06/16/2022 0011 CREATININE 1.32 (H) 04/14/2021 0254 GLUCOSE 237 (H) 06/16/2022 0011 CALCIUM 7.8 (L) 06/16/2022 0011 PROT 4.9 (L) 06/16/2022 0011 BILITOT 0.5 06/16/2022 0011 ALKPHOS 65 06/16/2022 [...] per IR afterwards. Follow up with service. [facility] Progress Note Subjective/ 71 [...] 06/15/22 1417 06/15/22 1959 06/15/22 2335 06/16/22 035 BP: (!) 140/74 BP Location: Left arm Patient Position: Lying Pulse: 65 65 69 66 Resp: Temp: 36.3 C (97.4 F) 36.3 C [...] PICC instead of regular PICC given h/o GRID TRIMMER in 2020. Ok for discharge planning from renal standpoint, outpatient BMP ordered and needs close follow up with nephrology in 1 week We will follow. Patricia Do APRN, DIRECTOR PROFESSIONAL SERVICES [facility], [facility] [phone] Nutrition Assessment Type and Reason for Visit: [...] Unable to assess Fluid Accumulation: Mild Extremities Synthetic Gem Press Operator Strength: Not Performed Nutrition Assessment: Pt is [...] On: Kcal/kg Weight Used for Energy Requirements: [place] Weight for Energy Calculation (kg): 59 kg Total Energy Requirements (kcals/day): 1360-6473 kcals (25-30) Weight Used for Protein Requirements: [place] Weight in Kg Used for Protein Requirements: 59 kg Estimated Total Protein (g/day): 59-77 (1.0-1.3) Estimated Daily Total Fluid (ml/day): 4551-4344 ml/day or per MD Nutrition Related Findings: [...] (April 2021) % Weight Change (Calculated): -25.7 [place] Body Weight (lbs) (Calculated): 130 lbs [place] Body Weight (Kg) (Calculated): 59 kg % [place] Body Weight (Calculated): 264.6 % BMI (kg/m2) [...] Oral Nutrition Supplement Agustin Galeano RD Contact: *[phone] or via Secure Chat Images from the original note were not included. [facility], Pulmonary Medicine [address] [place] [address] Patient - Salazar Coyle, Age - 71 y.o. 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 Palliative care was following peripherally. Will now s/o as goals are clear and no symptoms to manage at this time. Please re-consult the service should further needs arise prior to d/c . Signed, Kailey Bowman APRN, CNP Palliative Care/Hospice #[id number] [facility] - Infectious Diseases Attending Progress Note [...] Lab Results Component Value Date/Time NA 144 06/15/2022356 K 3.8 06/15/2022356 CL 113 (H) 06/15/2022356 CO2 30 06/15/2022356 BUN 54 (H) 06/15/2022356 CREATININE 0.96 06/15/2022356 CREATININE 1.32 (H) 04/14/2021 0254 GLUCOSE 173 (H) 06/15/2022356 CALCIUM 7.8 (L) 06/15/2022356 PROT 5.2 (L) 06/15/2022 0357 BILITOT 0.6 06/15/2022 0357 ALKPHOS 61 06/15/2022 0357 AST 15 06/15/2022356 ALT 10 06/15/2022 035 PROCAL 76.84 (H) 06/11/2022 0322 PROCAL 17.91 (H) 06/09/2022 1640 PROCAL 0.06 03/08/2021 1558 Lab Results Component Value Date/Time WBC 9.2 06/15/2022356 HGB 8.7 (L) 06/15/2022356 HCT 27.0 (L) 06/15/2022 035 PLT 138 (L) 06/15/2022356 GRANULOCYTES 46.9 04/14/2021 0254 LYMPHOPCT 26 06/15/2022 035 LYMPHOPCT 12.3 (L) 06/13/2022 0600 MONOPCT 1 (L) 06/15/2022356 MONOPCT 4.4 06/13/2022 0600 LABEOS 5.3 04/14/2021 [...] PICC instead of regular PICC given h/o GRID TRIMMER in 2020. Ok for discharge planning from renal standpoint, outpatient BMP ordered and needs close follow up with nephrology in 1 week We will follow. Patricia Do APRN, DIRECTOR PROFESSIONAL SERVICES [facility], [facility] [phone] I have reviewed the above assessment and plan with the SET UP AND LAY OUT INSPECTOR. I agree with above note. Images from the original note were not included. Hospitalist Progress Note 06/15/2022 [phone]: Please page me ([phone]) for patient care issues. [phone]: Please page [facility] Hospitalist for any issues. Subjective: Admit Date: 06/09/2022 PCP: Paige Rivera DO Room#: [id number]/[id number] A Interval History: No overnight issues. Denies chest pain, sob, abdominal pain, nausea, vomiting, diarrhea, constipation, fevers, or chills. Adult diet Easy to Chew; 4 carb choices (60 gm/meal) @[id number]@ 24HR INTAKE/OUTPUT: Intake/Output Summary (Last 24 hours) at 06/15/2022 0957 Last data filed at 06/15/2022 0700 Gross per 24 hour Intake -- Output 1075 ml Net -1075 ml Past Medical History: Past Medical History: Diagnosis Date A-fib (CMS/HCC) (HCC) Anemia Diabetes (HCC) Lymphedema Obesity LABS: CBC: Recent Labs 06/13/22 0606/14/22 0603 06/15/22 0357 WBC 8.1 11.4* 9.2 RBC 3.15* 3.19* 3.35* HGB 8.1* 8.2* 8.7* HCT 25.6* 26.0* 27.0* MCV 81.2 81.5 80.7 RDW 17.9* 18.1* 18.1* PLT 51* 81* 138* BMP: Recent Labs 06/13/22 0606/14/22 0603 06/15/22 0357 NA 141 143 144 K 4.1 3.5 3.8 CL 111* 114* 113* CO2 27 27 30 BUN 63* 61* 54* CREATININE 1.41* 1.05* 0.96 GLUCOSE 240* 131* 173* CALCIUM 7.9* 7.9* 7.8* ANIONGAP 3 3 1* LIVER PROFILE: Recent Labs 06/13/22 0600 06/14/22 0603 06/15/22 0357 AST 20 22 15 ALT 11 10 [...] here while on this Check daily labs. TCC/SW for discharge planning (plan is for return to [facility] once medically ready). Barrier to discharge: awaiting for finalize blood cultures and clearance of bacteremia for placement of tunneled line for exterminator IV antibx. Addendum: ID has cleared for [...] Vang Mobile Relation: Child Secondary Emergency Contact: Jeuss Frank Mobile Relation: Spouse Preferred language: [place] Neurosurgeon needed? No ELISE PARK MD Division of Hospitalist Medicine Inpatient Medical Services/[facility] PAGER: [employer] chat [facility] Medical [facility] - Infectious Diseases [...] and HD). Final OPAT order to follow. [facility] Progress Note Subjective/ 71 y.o. [...] from last 7 days Lab Units 06/14/22 0606/13/22 0606/12/22 0312 SODIUM mmol/L 143 141 142 POTASSIUM mmol/L 3.5 4.1 3.0* CHLORIDE mmol/L 114* 111* 115* CO2 mmol/L 27 27 22 BUN mg/dL 61* 63* 55* CREATININE mg/dL 1.05* 1.41* 1.43* GLUCOSE mg/dL 131* 240* 171* CALCIUM mg/dL 7.9* 7.9* 6.6* Results from last 7 days Lab Units 06/14/22 0606/13/22 0606/12/22 1219 06/12/22 0312 WBC AUTO 10*3/uL 11.4* [...] week We will follow. Patricia Do APRN, DIRECTOR PROFESSIONAL SERVICES [facility], [employer] [phone] I have reviewed the above assessment and plan with the SET UP AND LAY OUT INSPECTOR. I agree with above note. Cr improving. Uptitrated Lisinopril. D/w ID, consider tunneled PICC instead of regular PICC given h/o GRID TRIMMER in 2020. Images from the original note were not included. [facility], Pulmonary Medicine [address] [place] [id number] Patient - Salazar Coyle, Age - 71 [...] Problem List Diagnosis Hypertension Edema Foot ulcer ([facility]) Hyperlipemia Bladder spasm Type 2 diabetes mellitus with hyperglycemia ([facility]) ([facility]) Wounds, multiple Degenerative disc disease, cervical Chronic pain Osteoarthrosis PAF (paroxysmal atrial fibrillation) ([facility]) ([facility]) Cognitive decline Morbid obesity with BMI of 60.0-69.9, adult ([facility]) ([facility]) 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 ([facility]) Recurrent UTI Cerebrovascular accident ([facility]) Hyperglycemia Chronic indwelling Jose catheter CKD (chronic kidney disease) Asymptomatic bacteriuria Anemia Septic shock ([facility]) ([facility]) Assessment and Plan Severe sepsis status post [...] were not included. Hospitalist Progress Note 06/14/2022 [phone]: Please page me ([phone]) for patient care issues. [phone]: Please page [facility] Hospitalist for any issues. Subjective: Admit Date: 06/09/2022 PCP: Paige Rivera DO Room#: G9-809/[id number] A Interval History: No overnight issues. Denies chest pain, sob, abdominal pain, nausea, vomiting, diarrhea, constipation, fevers, or chills. Adult diet Easy to Chew; 4 carb choices (60 gm/meal) @[id number]@ 24HR INTAKE/OUTPUT: Intake/Output Summary (Last 24 hours) [...] -- 51* 81* BMP: Recent Labs 06/12/2231106/13/22 0600 06/14/22 0603 NA 142 141 143 K 3.0* 4.1 3.5 CL 115* 111* 114* CO2 22 27 27 BUN 55* 63* 61* CREATININE 1.43* 1.41* 1.05* GLUCOSE 171* 240* 131* CALCIUM 6.6* 7.9* 7.9* ANIONGAP 5 3 3 LIVER PROFILE: Recent Labs 06/12/2231106/13/22 0600 06/14/22 0603 AST 23 20 22 ALT 9 [...] discharge planning (plan is for return to [facility] once medically ready). Total time spent (which [...] Jesus Frank Mobile Relation: Spouse Preferred language: Swiss Neurosurgeon needed? No ELISE PARK MD Division of Hospitalist Medicine Inpatient Medical Services/[facility] PAGER: Epic chat Images from the original note were not included. Hospitalist Progress Note 06/13/2022 Subjective: Admit Date: 06/09/2022 PCP: Paige Rivera DO Room#: B4-465/B4-465 A Interval History: No overnight issues. Adult [...] 43* 46* -- 51* BMP: Recent Labs 06/11/2232106/12/2231106/13/22 0600 NA 139 142 141 K 3.6 [...] q24h, Dirk Fernandez MD, 1,000 mg at 06/12/22 2212 [Held by provider] gabapentin (Neurontin) capsule 100 [...] mg, Oral, Daily, Ana Brennan APRN - DIRECTOR PROFESSIONAL SERVICES, 10 mg at 06/13/22 1245 ondansetron (Zofran) [...] Mgmt of the patient was discussed with manager rn case [name], who stated, in summary: Discharge planning to [facility] (LOW: 2x CAT1 or independent historian MOD: [...] Jesus Frank Mobile Relation: Spouse Preferred language: [place] Neurosurgeon needed? No Blanca Henderson MD Division of Hospitalist Medicine Inpatient Medical Services/[facility] Progress Note Subjective/ 71 [...] any questions or concerns. Ana Brennan APRN, DIRECTOR PROFESSIONAL SERVICES [facility], [facility] [phone] I have reviewed the above assessment and plan with the SET UP AND LAY OUT INSPECTOR. I agree with above note. Cr at baseilne. [facility] - Infectious Diseases Attending Progress [...] 27 06/13/2022 0600 BUN 63 (H) 06/13/2022 0600 CREATININE 1.41 (H) 06/13/2022 0600 CREATININE 1.32 (H) 04/14/2021 0254 GLUCOSE 240 (H) 06/13/2022 0600 CALCIUM 7.9 (L) 06/13/2022 0600 PROT 5.3 (L) 06/13/2022 0600 BILITOT 0.8 06/13/2022 0600 ALKPHOS 58 06/13/2022 0600 AST 20 06/13/2022 0600 ALT 11 06/13/2022 0600 PROCAL 76.84 (H) 06/11/2022 0322 PROCAL 17.91 (H) 06/09/2022 1640 PROCAL 0.06 03/08/2021 1558 Lab Results Component Value Date/Time WBC 8.1 06/13/2022 0600 HGB 8.1 (L) 06/13/2022 0600 HCT 25.6 (L) 06/13/2022 0600 PLT 51 (L) 06/13/2022 0600 GRANULOCYTES 46.9 04/14/2021 0254 LYMPHOPCT 12.3 (L) 06/13/2022 0600 MONOPCT 4.4 06/13/2022 0600 LABEOS 5.3 04/14/2021 0254 BASOPCT 0.2 06/13/2022 0600 NEUTROABS 6.7 06/13/2022 0600 Micro: 06/10 Urine cx: E coli ( also GPR, GPC in clusters on stain) 06/09 Urine cx: ESBL E coli, anaerobic GPR [...] from the original note were not included. [facility], Pulmonary Medicine [address] [place] [id number] Patient - Salazar Coyle, Age - 71 [...] data in the 24 hours ending 06/13/22 0931 Exam General appearance: Awake, alert, no acute [...] from last 7 days Lab Units 06/13/22 06 WBC AUTO 10*3/uL 8.1 HEMOGLOBIN g/dL 8.1* HEMATOCRIT % 25.6* PLATELETS AUTO 10*3/uL 51* BMP: Results from last 7 days Lab Units 06/13/22 0606/12/2231106/11/222 SODIUM mmol/L 141 142 139 POTASSIUM mmol/L 4.1 3.0* 3.6 CHLORIDE mmol/L 111* 115* 104 CO2 mmol/L 27 22 25 BUN mg/dL 63* 55* 57* CREATININE mg/dL 1.41* 1.43* 2.29* GLUCOSE mg/dL 240* 171* 190* CALCIUM mg/dL 7.9* 6.6* 8.0* ABG: LIVER PROFILE Results from last 7 days Lab Units 06/13/22 0606/12/22 03106/11/22 0322 06/09/22 1640 06/09/22 1132 ALK PHOS [...] Problem List Diagnosis Hypertension Edema Foot ulcer ([facility]) Hyperlipemia Bladder spasm Type 2 diabetes mellitus with hyperglycemia ([facility]) ([facility]) Wounds, multiple Degenerative disc disease, cervical Chronic pain Osteoarthrosis PAF (paroxysmal atrial fibrillation) ([facility]) ([facility]) Cognitive decline Morbid obesity with BMI of 60.0-69.9, adult ([facility]) ([facility]) 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 [facility] Respiratory Care Department Progress Note Comment or [...] Admit Date: 06/09/2022 PCP: Paige Rivera, Room#: B4-317/[id number] A Interval History: No overnight issues. Transferred [...] (HCC) Lymphedema Obesity LABS: CBC: Recent Labs 06/10/2232006/11/2232106/12/2231106/12/22 1219 WBC 11.4* 12.7* 11.5* -- RBC [...] BID, Franchesca Mckeon MD, 5 mg at 06/12/22 2212 dextrose 5 % infusion, 100 mL/hr, IntraVENous, PRN, Franchesca Mckeon MD dextrose 50 % solution 12.5 g, 12.5 g, IntraVENous, PRN, Franchesca Mckeon MD ertapenem (INVanz) 1,000 mg in sodium chloride 0.9 % 50 mL IVPB Mini-Bag Plus, 1,000 mg, IntraVENous, q24h, Dirk Fernandez MD, 1,000 mg at 06/12/22 2212 [Held by provider] gabapentin (Neurontin) capsule 100 [...] 11.3 mL/hr at 06/12/222247, 8.6 Units/kg/hr at 06/12/228 heparin injection 2,000 Units, 2,000 Units, IntraVENous, PRN, Franchesca Mckeon MD heparin injection 4,000 Units, 4,000 Units, IntraVENous, PRN, Franchesca Mckeon MD Hydrocortisone Sod Suc (PF) (Solu-CORTEF) injection 25 mg, 25 mg, IntraVENous, q12h, Russ Ching MD, 25 mg at 06/12/22 224 insulin glargine (Lantus) injection 10 Units, 10 Units, SubCUTAneous, Nightly, Franchesca Mckeon MD, 10 Units at 06/12/22 2226 Insulin Lispro (Humalog) injection 0-18 Units, 0-18 Units, SubCUTAneous, q6h, Franchesca Mckeon MD, 9 Units at 06/12/22 2231 ondansetron (Zofran) injection 4 mg, 4 mg, IntraVENous, q6h PRN, Franchesca Mckeon MD pantoprazole (ProtoNix) EC tablet 40 mg, 40 mg, Oral, Nightly, 40 mg at 06/12/222210 OR pantoprazole (ProtoNix) injection 40 mg, 40 mg, IntraVENous, Nightly, Franchesca Mckeon MD, 40 mg at 06/10/22 2142 sodium chloride 0.9 % infusion, 5-250 mL/hr, IntraVENous, PRN, Franchesca Mckeon MD sodium chloride 0.9% (NS) flush 5-40 mL, 5-40 mL, IntraVENous, 2 times per day, Franchesca Mckeon MD, 20 mL at 06/12/22 221 sodium chloride 0.9% (NS) flush 5-40 mL, [...] Jesus Frank Mobile Relation: Spouse Preferred language: [place] Neurosurgeon needed? No Blanca Henderson MD Division of Hospitalist Medicine Inpatient Medical Services[place] - Infectious Diseases Attending Progress Note [...] Lab Results Component Value Date/Time NA 142 06/12/2022 031 K 3.0 (L) 06/12/2022311 CL 115 (H) 06/12/2022311 CO2 22 06/12/2022311 BUN 55 (H) 06/12/2022311 CREATININE 1.43 (H) 06/12/2022311 CREATININE 1.32 (H) 04/14/2021253 GLUCOSE 171 (H) 06/12/2022311 CALCIUM 6.6 (L) 06/12/2022311 PROT 4.6 (L) 06/12/2022311 BILITOT 0.9 06/12/2022311 ALKPHOS 50 06/12/2022311 AST 23 06/12/2022311 ALT 9 06/12/2022311 PROCAL 76.84 (H) 06/11/2022 032 PROCAL 17.91 (H) 06/09/2022 1640 PROCAL 0.06 03/08/2021 1558 Lab Results Component Value Date/Time WBC 11.5 (H) 06/12/2022311 HGB 7.8 (L) 06/12/2022 1219 HCT 23.6 (L) 06/12/2022 1219 PLT 46 (L) 06/12/2022311 GRANULOCYTES 46.9 04/14/2021 0254 LYMPHOPCT 6.5 (L) 06/12/2022311 MONOPCT 4.2 06/12/2022311 LABEOS 5.3 04/14/2021 0254 BASOPCT 0.1 06/12/2022311 NEUTROABS 10.2 (H) 06/12/2022311 [...] from the original note were not included. [facility], Pulmonary Medicine [address] [place], [place] [id number] Patient - Salazar Coyle, Age - 71 [...] last 7 days Lab Units 06/12/22 1219 06/12/22311 WBC AUTO 10*3/uL -- 11.5* HEMOGLOBIN g/dL 7.8* 6.9* HEMATOCRIT % 23.6* 21.4* PLATELETS AUTO 10*3/uL -- 46* BMP: Results from last 7 days Lab Units 06/12/22 03106/11/2232106/10/222202 SODIUM mmol/L 142 139 140 POTASSIUM mmol/L 3.0* 3.6 3.9 CHLORIDE mmol/L 115* 104 107 CO2 mmol/L 22 25 24 BUN mg/dL 55* 57* 57* CREATININE mg/dL 1.43* 2.29* 2.40* GLUCOSE mg/dL 171* 190* 216* CALCIUM mg/dL 6.6* 8.0* 8.0* ABG: LIVER PROFILE Results from last 7 days Lab Units 06/12/22 03106/11/2232106/10/22220206/09/22 1640 06/09/22 1132 ALK PHOS U/L 50 [...] Problem List Diagnosis Hypertension Edema Foot ulcer ([facility]) Hyperlipemia Bladder spasm Type 2 diabetes mellitus with hyperglycemia ([facility]) ([facility]) Wounds, multiple Degenerative disc disease, cervical Chronic pain Osteoarthrosis PAF (paroxysmal atrial fibrillation) ([facility]) ([facility]) Cognitive decline Morbid obesity with BMI of 60.0-69.9, adult ([facility]) ([facility]) 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 [facility] Progress Note Subjective/ 71 y.o. [...] Results from last 7 days Lab Units 06/12/2231106/11/2232106/10/22 2203 SODIUM mmol/L 142 139 140 POTASSIUM mmol/L 3.0* 3.6 3.9 CHLORIDE mmol/L 115* 104 107 CO2 mmol/L 22 25 24 BUN mg/dL 55* 57* 57* CREATININE mg/dL 1.43* 2.29* 2.40* GLUCOSE mg/dL 171* 190* 216* CALCIUM mg/dL 6.6* 8.0* 8.0* Results from last 7 days Lab Units 06/12/2231106/11/2232106/10/22 032 WBC AUTO 10*3/uL 11.5* 12.7* 11.4* HEMOGLOBIN [...] any questions or concerns. Ana Brennan APRN, DIRECTOR PROFESSIONAL SERVICES [facility], [facility] [phone] I have reviewed the above assessment and plan with the SET UP AND LAY OUT INSPECTOR. I agree with above note. Cr improving. Replete K. UROLOGY PROGRESS NOTE PATIENT NAME: Salazar Coyle [...] Labs and Imaging Studies CBC: Recent Labs 06/10/22 0321 06/11/222 06/12/22 0312 WBC 11.4* 12.7* 11.5* HGB 8.8* 8.4* 6.9* HCT 28.7* 26.6* 21.4* MCV 81.9 80.5 79.2* PLT 67* 43* 46* BMP: Recent Labs 06/10/22 0321 06/10/22 1114 06/10/22 2203 06/11/22 0322 06/12/22 0312 NA 140 < > 140 139 142 [...] be discharged with this. Please document output [id number] - Continue to trend labs daily - [...] minutes reviewing previous notes, test results and [id number] with the patient discussing the diagnosis importance [...] of baseline mentation. -Aox1-2 today. -Resides at long-term. Hx DM II -Noted poor compliance of BGT/insulin at present long-term. -SSI -Per primary. Palliative Care Encounter/Goals of [...] be obtained due to patient's mental status [place] Symptom Assessment Score [place] Score Pain Score 0 Tiredness Score 0 [...] history: status: no Marital status: Living status: long-term Work history: n/a Family Meeting: (if discussing [...] Terminal Illness: Is patient hospice appropriate? TBD [facility] Respiratory Care Department Progress Note Comment [...] from the original note were not included. [facility] - Infectious Diseases Attending Progress [...] F) Axillary 86 (!) 27 100 % 06/10/22 2203 131/52 -- -- 86 (!) 27 99 % 06/10/222123 124/63 -- -- 86 19 99 % 06/10/222032 134/57 -- -- 84 19 97 % 06/10/222027 -- -- -- 88 -- 95 % 06/10/222016 (!) 144/62 -- -- 86 22 97 % 06/10/222002 (!) 144/57 -- -- 85 25 98 % 06/10/221946 122/56 -- -- 87 20 92 % 06/10/221939 131/58 -- -- 83 20 (!) 88 % 06/10/221917 (!) 149/43 36.6 C (97.9 F) Axillary 93 20 90 % 06/10/221805 (!) 148/54 -- -- 89 20 90 [...] 1640 06/10/22 0321 06/10/22 1114 06/10/22 2203 06/11/22321 NA 138 < > 142 140 139 [...] displayed. Recent Labs 06/09/22 1132 06/09/22 1640 06/10/2232006/11/22321 WBC 10.2 9.3 11.4* 12.7* HGB 9.5* [...] time stamp for accounting for open encounter. [facility] Nephrology Consultation Note Reason for [...] Ringer's, 100 mL/hr, Last Rate: 100 mL/hr (06/11/22 0532) PRN Meds:PRN medications: dextrose, dextrose, glucagon (rDNA), glucose, heparin, heparin, ondansetron, sodium chloride, sodium chloride 0.9% Physical Exam Vitals: 06/11/22 0318 06/11/22 0403 06/11/22 0503 06/11/22 0603 BP: 97/85 127/55 115/55 134/51 BP Location: Left arm Patient Position: Lying Pulse: 82 77 54 90 Resp: 18 16 Temp: 36.2 C (97.1 F) [...] Data Recent Labs 06/09/22 1640 06/10/22 0321 06/11/22321 WBC 9.3 11.4* 12.7* HGB 7.6* 8.8* 8.4* HCT 23.8* 28.7* 26.6* MCV 80.8 81.9 80.5 PLT 107* 67* 43* Recent Labs 06/10/22 0321 06/10/22 1114 06/10/22 2203 06/11/22321 NA 140 142 140 139 K 3.5 [...] from the original note were not included. [facility], Pulmonary Critical Care and Sleep Medicine [address] [place] [address] Critical Care Note: Patient - Salazar Coyle, Age - 71 y.o. - 1950 Room [facility] - [facility]03[facility][id number] [id number] Date of Admission - 06/09/2022 11:12 AM [...] Problem List Diagnosis Hypertension Edema Foot ulcer ([facility]) Hyperlipemia Bladder spasm Type 2 diabetes mellitus with hyperglycemia ([facility]) ([facility]) Wounds, multiple Degenerative disc disease, cervical Chronic pain Osteoarthrosis PAF (paroxysmal atrial fibrillation) ([facility]) ([facility]) Cognitive decline Morbid obesity with BMI of 60.0-69.9, adult ([facility]) ([facility]) 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 ([facility]) Recurrent UTI Cerebrovascular accident ([facility]) Hyperglycemia Chronic indwelling Jose catheter CKD (chronic kidney disease) Asymptomatic bacteriuria Anemia Septic shock ([facility]) ([facility]) Events of Past 24 Hours Blood cultures [...] [Urine:433 (0.1 mL/kg/hr)] Weight: 131.1 kg @IODETAILS@ @[id number]@ Lines, ET tube, Devices Lines - none [...] Ringer's, 100 mL/hr, Last Rate: 100 mL/hr (06/11/22 0532) Diet/Nutrition Adult diet Easy to Chew; 4 [...] Narrative [facility] Name[facility] COYLE : 1950 [id number] Exam Date/Time: 06/10/2022 04:49 Procedure: XR CHEST [...] to be transferred out of ICU to [facility] service for continuing care patient discussed with [facility] physician Dr. Fay Wean oxygen as tolerated. [...] Pt transferred to OR via bed with RECREATION ATTENDANT. Nutrition Assessment Type and Reason for Visit: [...] Illness Nutrition Assessment: Pt brought in from [facility] for low grade fever, lethargy, and change [...] (kg): 131 kg Total Energy Requirements (kcals/day): 4646-1039 Weight Used for Protein Requirements: [place] Weight in Kg Used for Protein Requirements: [...] (April 2021) % Weight Change (Calculated): -25.7 [place] Body Weight (lbs) (Calculated): 130 lbs [place] Body Weight (Kg) (Calculated): 59 kg % [place] Body Weight (Calculated): 222.3 % BMI (kg/m2) [...] from the original note were not included. [facility], Pulmonary Critical Care and Sleep Medicine [address] [place] [address] Critical Care Note: Patient - Salazar Coyle, Age - 71 y.o. - 1950 Room Number - 222-03/222-[address] [facility] # - [id number] Date of Admission - 06/09/2022 11:12 AM [...] Problem List Diagnosis Hypertension Edema Foot ulcer ([facility]) Hyperlipemia Bladder spasm Type 2 diabetes mellitus with hyperglycemia ([facility]) ([facility]) Wounds, multiple Degenerative disc disease, cervical Chronic pain Osteoarthrosis PAF (paroxysmal atrial fibrillation) ([facility]) ([facility]) Cognitive decline Morbid obesity with BMI of 60.0-69.9, adult ([facility]) ([facility]) 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 ([facility]) Recurrent UTI Cerebrovascular accident ([facility]) Hyperglycemia Chronic indwelling Jose catheter CKD (chronic kidney disease) Asymptomatic bacteriuria Anemia Septic shock ([facility]) ([facility]) Events of Past 24 Hours Blood cultures [...] [Urine:410 (0.1 mL/kg/hr)] Weight: 131.1 kg @IODETAILS@ @[id number]@ Lines, ET tube, Devices Lines - Medications [...] Narrative Patient Name: SALAZAR COYLE : 1950 [id number] Exam Date/Time: 06/10/2022 04:49 Procedure: XR CHEST [...] excluding procedures. Pharmacy Vancomycin Consult Follow-Up Note Non-GRID TRIMMER Patients Current Dosinmg q24h CREATININE Date Value [...] - see orders. Pharmacy Note Vancomycin Consult Non-GRID TRIMMER Salazar Coyle is a 71 y.o. year old female ordered vancomycin for sepsis; consult from Dr. Hood Wood to manage therapy. Patient Active Problem List Diagnosis Date Noted Edema 04/11/2021 Hypertension 04/15/2021 Hyperlipemia 04/15/2021 Cognitive decline 04/15/2021 Morbid obesity with BMI of 60.0-69.9, adult ([facility]) ([facility]) 04/15/2021 Chronic indwelling Jose catheter 04/15/2021 Foot ulcer ([facility]) 04/13/2021 Wounds, multiple 04/11/2021 PAF (paroxysmal atrial fibrillation) ([facility]) ([facility]) 04/11/2021 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 ([facility]) 04/11/2021 Hyperglycemia 04/11/2021 CKD (chronic kidney disease) 04/11/2021 Asymptomatic bacteriuria 04/11/2021 Anemia 04/11/2021 Bladder spasm 03/08/2021 Type 2 diabetes mellitus with hyperglycemia ([facility]) ([facility]) 03/08/2021 Degenerative disc disease, cervical 03/08/2021 Chronic pain 03/08/2021 Osteoarthrosis 03/08/2021 Recurrent UTI 03/08/2021 Cerebrovascular accident ([facility]) 03/08/2021 Patient has no known allergies. CREATININE [...] continue to follow. documented in this encounter [facility] 06-16-2022 Nurse Note Transport here to take pt to [facility] at this time, iv's removed with catheters intact, clean dry dressings applied. CVC remains in place. Telemetry removed and placed at nurses station. Pt denies any further needs at this time. Called report to [facility] at this time, all questions answered at this time. IR Procedures: [place] Tunneled Central Line placement [...] speaking with patient. documented in this encounter [facility] 06-16-2022 Miscellaneous Notes Discharge med list and MAR information transmitted to return back to [facility] via [facility] per TCC request. Covid results pending. Active discharge order in place. Request for [facility] to send discharge updates via [facility]. ORGAN GRINDER assisted with transport set up for 1500. I updated [facility] via [employer] of transport time. Patient has been discharged. Transportation arranged through [facility] by cot set for 3 pm. Notified RN and TCC via [employer] secure chat. Updated patient's spouse of transportation [...] folds. Tunneled PICC placed today. DC to [facility] tomorrow. Images from the original note were not included. [facility] Palliative Care Transitions of Care Note Salazar Coyle : 1950 ADMIT DATE: 06/09/2022 DISCHARGE DATE: TBD PRIMARY CARE PHYSICIAN: Paige Rivera DO CODE STATUS: Full Code DISCHARGE DIAGNOSES: Principal Problem: Septic shock (CMS/HCC) ([facility]) HOSPITAL COURSE: 71 yo female. Resides at facility. Presented to ER with fever and AMS. POSITIVE ESBL/E.coli bacteremia. PMH of chronic jose, afib, anemia, DM, lymphedema and obesity. PICC placed for exterminator atbx through 06-24-2022. Full code after discussions. Palliative consulted for goals of care/code status discussion and s/o on 06-15-2022 SIGNIFICANT DIAGNOSTIC STUDIES: Labs, imaging CODE STATUS DISCUSSIONS: Full code SYMPTOM MANAGEMENT MEDICATIONS: N/a RECOMMENDED NEXT STEPS: D/c back to [facility] when medically ready. FOLLOW UP TESTING, PENDING RESULTS OR REFERRALS AT TRANSITIONAL CARE VISIT: No PENDING STUDIES: No DISPOSITION: ECF FACILITY/HOME CARE AGENCY NAME: [facility] Follow up with PCP on office to call patient. Reason for Outpatient/Home/ECF Palliative Care follow-up: N/A Opiate Prescribing OARRS was reviewed and is supportive of the care plan. SIGNED: ZINA Mcghee CNP 06/15/2022, 11:00 AM Sent updated notes to [facility] via [facility] per TCC request. Await review and [...] TCC estimate, Picc to be placed for residential abx" 06/15/2022 Dominique Yun RN 06/13/2022 9:32 AM 06/15/2022 Dominique Yun RN 06/13/2022 9:31 AM TCC estimate, awaiting BCx clearance, on hep gtt" 06/15/2022 Laura Fontaine RN 06/12/2022 8:00 AM 06/12/2022 Hood Wood, DO 06/09/2022 4:01 PM 06/12/2022 Hood Wood, DO 06/09/2022 2:01 PM Length of Stay (Days): 5 GMLOS: No GMLOS Documented Patient remains on [address] [place] [address] with sepsis. Positive for Ecoli/ESBL bacteremia. Repeat BC pending. ID following with continued abx Invanz. PICC line to be placed for exterminator abx through 06/24. Anemia, monitoring labs/lytes. Chronic jose, to discharge with per Urology. Pulmonology following for hypoxia, on RA. Nephrology for WH[place]LEY, signed off. New Cardiology consult for bradycardia. Therapy recommending [facility]. Patient will return to [facility] when medically stable, she is exterminator care and a bed hold. The patient [...] to Referral placed to return back to [facility] via [facility] per [facility] request. Await review and response regarding ability to accept. TCC notified. Request for [facility] to double check to see if [facility], might have experienced trouble crossing over. Care Managment Initial Assessment Date: 06/12/2022 Patient Name: Salazar Coyle : 1950 Patient Information Source of Information: Patient Senior Tax Accountant Name/Contact Information: nabor Gay Cognition/Language: Confused at baseline Permission given to speak with patient claim representative/caregiver as indicated: Yes Confirmation of Payer with patient/family: Yes Payer Name: Bk Medicare : Confirmation of Primary Care Physician: Confirmed PCP Name: Felixreuben Fariaeugenedalton Primary Caregiver: Other (Comment) (facility staff) If assistance needed, confirmed caregiver ready, willing and able to care for patient at discharge: Yes Confirmed with: [place] Living Arrangements Current Residence: Private Residence Number of Floors Number of Entry Steps: Bed/Bath Levels: Facility: Jail/[facility] Care Facility Name: [facility] Plan to Return: Lives with: Other (Comment) Support Systems: Family members, Children, Spouse/significant other Activities of Daily Living Ambulation: Total Care Bathing/Dressing: Total Care Elimination/Continence/Toileting: Total Care Feeding: Assistance Who Assists with Activities of Daily Living: [facility] Instrumental Activities of Daily Living Prescription Coverage: Yes Pharmacy Used: facility provides medications Medication Management: Independent Transportation/Shopping: Assistance Provider Transportation Mode: Payer provided transport service Needs Assistance with Transportation at Discharge: No Meal Preparation: Assistance Provider Meal Prep Assistance Provider Name: [facility] Laundry/Cleaning: Assistance Provider Laundry/Cleaning Assistance Provider Name: [facility] Finances/Bill Paying: Assistance Provider Finances/Bill Payer Assistance Provider Name: [facility] Communication: (call light system) Types of Care Services/Equipment Utilized Care Services: Dialysis Type: NA Durable Medical Equipment: Oxygen (Continuous or prn) Oxygen Flow Rate: 3L Patient's Goal/Discharge Plan Patient expects to be discharged to: [facility] Discharge Planning Actions: Continue to [...] IVF. Palliative and ID following. Spoke with nabor Gay via phone, introduced self and explained role of tcc. Pt has insurance with RX coverage, active with PCP. Pt is a resident at [facility], has been there for a few years. [...] anyways. Plan for pt to return to [facility] and family is going to transition pt [...] to the patient. Associated attestation - Annette Bejarano DO - 06/11/2022 9:50 PM EDT Urine culture was obtained from left kidney in OR This was mislabeled as urine from bladder Urine from KIDNEY is showing Gram Positive Cocci and Gram positive bacilli, as well as gram negative bacilli Per palliative note, daughter is wanting to change long-term facilities. Snf list left at bedside and [...] Jose catheter placement Surgeon: Annette Bejarano DO Biological Science Technician Fish: gigi Anesthesia: General with LMA EBL: minimal [...] This will have to be performed at [facility] as her body habitus is such that the cysto bed at [facility] is necessary as is the jenifer laser. Hand irrigate Jose PRN for bleeding as patient is on heparin gtt and plavix Date: 06/10/2022 Location: [facility] OR Name: Salazar CoyleDOB: 1950, Diagnosis Pre-op Diagnosis * Kidney stone [N20.0] Post-op Diagnosis * Kidney stone [N20.0] Procedures CYSTOSCOPY AND PYELOGRAM ,LEFT URETEROSCOPY, AND LEFT URETERAL STENT INSERTION 26011 - PA CYSTO BLADDER W/URETERAL CATHETERIZATION Surgeons * Annette [...] (Canceled) Annette Bejarano DO 06/10/22 1616 Routine [id number] Description: URINE FROM BLADDER FOR CULTURE AND SENSITIVITY Implants Type Name Action Serial No. Stent STENT URET 6FR 22-30CM [facility] SUT - [id number] Implanted Staff: Head Baker: Adwoa Johnson RN Foam Fabricator: Jaelyn Venegas Scrub Person: Alida Bhat MA Nurse Practical: Lacy Garcia Findings: severe urethral erosion secondary [...] as possible. Scheduled for 3:30 PM. Nursing pipeline maintenance supervisor notified she will contact proposition player OR team & anesthesia. Bedside RN notified & Dr. Mckeon. Phone call placed to patient's daughter, multiple attempts with no answer and voicemail box is full. Contact patient's Jesus, informed me his daughter Deidra is legal HPOA but he consents for patient to have surgery at this time and will attempt to contact his daughter as well. documented in this encounter [facility] 06-16-2022 Hospital course Narrative Discharge Summary Salazar Coyle : 1950 ADMIT DATE: 06/09/2022 DISCHARGE DATE: 06/16/2022 PRIMARY CARE PHYSICIAN: Paige Rivera VISIT STATUS: Admission CODE STATUS: Full Code DISCHARGE DIAGNOSES: Principal Problem: Septic shock (CMS/HCC) ([facility]) HOSPITAL COURSE: 71-year-old female with severe morbid obesity, history of atrial fibrillation diabetes type 2 chronic lymphedema transferred from [facility] to [facility] because of change of mental status low-grade fever on talking to patient's daughter patient reportedly was treated with IV antibiotics for a UTI at the nursing facility. the following is a summary of her diagnosis/management during her stay here at [facility]: # Severe sepsis due to E. coli [...] that patient not on diabetic diet at long-term and also they are not checking sugars because patient refusing finger prick. She is planning to meet with pipeline maintenance supervisor there. # History of paroxysmal atrial fibrillation [...] Complexity: follow up within 7-14 calendar days ([id number]) [] Severe Complexity: follow up within 7 calendar days (78650) FOLLOW UP TESTING, PENDING RESULTS OR REFERRALS AT TRANSITIONAL CARE VISIT: [x] Yes needs follow up of pulmonary nodule, repeat cbc outpatient [] No PENDING STUDIES: DISPOSITION: Skilled Facility FACILITY/HOME CARE AGENCY NAME: [facility] Follow up with No follow-up provider specified. [...] 06/16/2022, 10:30 AM documented in this encounter [facility] 06-15-2022 Consult note Associated Order (s): IP CONSULT TO PALLIATIVE CARE Please see full consult on 06-09 by me. Associated Order(s): IP CONSULT TO CARDIOLOGY [facility] [place] [facility] Consult Note Reason for Consult/Chief Complaint: [...] discharge from cardiology standpoint Eduard Montemayor MD, MD, [facility], FASE DATE of SERVICE: 06/14/2022 Associated Order(s): IP CONSULT TO UROLOGY Images from the original note were not included. Patricia Avilez APRN - [place] 06/10/2022 at 12:02 PM [facility] Urology Inpatient Consultation PATIENT NAME: Salazar [...] Jose catheter with neurogenic bladder. Presented to [facility] with altered mental status from her extended care facility. Per the patient's daughter she was recently treated with IV antibiotics for UTI at the nursing facility. Patient unable to provide additional history, but per her daughter she had hospitalization 1 year ago for acute kidney injury requiring hemodialysis, but did have Vas-Cath removed prior to discharge and has been having catheter exchange at long-term since. Currently admitted to the ICU due to sepsis work-up concern for urinary source at this time as primary source. Urology consulted regarding chronic Jose catheter and difficult placement. She is not previously known to this urology group. Previously established at [facility] urology group for history of neurogenic bladder, [...] Current catheter in place is a 20 Kuwaiti with tea colored urine in bag. Review [...] mouth Every 24 hours. 04/06/21 Yes Historical Provider, acetaminophen (Tylenol) 325 MG tablet Take 975 [...] chewable tablet Chew 500 mg daily. Historical Provider, Calcium Carbonate-Vitamin D (Oyster Shell [...] mouth every 8 hours as needed. Historical Provider, oxyCODONE (Oxy-IR) 5 MG immediate [...] Recent Labs 06/09/22 1132 06/09/22 1640 06/10/22 032 WBC 10.2 9.3 11.4* HGB 9.5* 7.6* [...] Narrative: Patient Name: SALAZAR COYLE : 1950 [facility]#: [id number] Exam Date/Time: 06/10/2022 04:49 Procedure: XR CHEST [...] catheter exchange. After several attempts a 18 Kuwaiti coud catheter was successfully inserted into the [...] urologic status. -- Patricia Avilez APRN - SET UP AND LAY OUT INSPECTOR on 06/10/22 at 12:02 PM An electronic [...] evaluated the patient and agree with the SET UP AND LAY OUT INSPECTOR's assessment and plan. Patient critically ill in ICU at this time Chronic debility/immobility for 5-6 years CTAP with obstructing proximal ureteral calculus, likely source of infection Needs emergent cysto/stent placement Not candidate for PNT due to hep gtt, plavix, as well as habitus Please do not hesitate to reach out to the urology team with additional questions or concerns Annette Bejarano DO [facility] Urology Images from the original note were [...] No answer from spouse - daughter Deidra [phone] reported she is the healthcare POA - will bring in documents to support this. Pt lives exterminator at [facility] - would be a return to facility. [...] consult: 1 Subjective/Events 71 year female from [facility] presented to the ER for fevers and AMS. Pt admitted for sepsis urinary source, WHITLEY. Medical history frequent UTI's - chronic joes, Afib,anemia,DM, lymphedema and obesity. Palliative medicine was [...] taken but would not want to live residential with life supports. Pt will remain a [...] other systems were reviewed and are negative. [place] Symptom Assessment Score [place] Score Pain Score 0 Tiredness Score 5 [...] history: status: no Marital status: Living status: long-term Work history: Advance Care Planning: The patient has capacity to make healthcare and advanced care planning decisions No The patient's identified surrogate decision maker is Spouse and Child. Discussion participants: myself and daughter eDidra Interventions reviewed: Resuscitation procedures (CPR), Mechanical ventilator support, and Diagnostic testing Advance Care Planning Documents: Healthcare Power of De Icer Finisher: Financial Power of De Icer Finisher: Living Will: Code Status: Full Code Family [...] from the original note were not included. [facility] - Infectious Diseases Attending Consult Note Reason for Consult: Sepsis, E coli bacteremia History of Present Illness: This is a 71 y/o woman admitted from [facility] via ambulance after being lethargic and less responsive for the past few days with low grade fever. She was noted to be encephalopathic in ED with 100.1, hypotensive at 88/41, and oxygenating well on room air. She had BC and urine culture sent (from ellie jose) and the BC x2 are both growing [...] 5 mg Oral BID Franchesca Mckeon MD atorvastatin (Lipitor) tablet 20 mg 20 [...] (premix) 5-30 Units/kg/hr IntraVENous Continuous ZINA Davila CNP 11.3 mL/hr at 06/10/22 0406 8.6 Units/kg/hr at 06/10/22 0406 heparin injection 2,000 Units 2,000 Units IntraVENous PRN ZINA Davila CNP heparin injection 4,000 Units 4,000 Units IntraVENous PRN ZINA Davila CNP insulin glargine (Lantus) injection 10 Units 10 Units SubCUTAneous Nightly ZINA Davila CNP 10 Units at 06/09/22 2108 Insulin Lispro (Humalog) injection 0-18 Units 0-18 [...] Nightly Franchesca Mckeon MD 40 mg at 06/09/22 2108 perflutren lipid microspheres (Definity) injection 1.65 mg 1.65 mg IntraVENous Once PRN Franchesca Mckeon MD sodium bicarbonate 150 mEq in sterile water 1,000 mL infusion 125 mL/hr IntraVENous Continuous Peter Acierno, CANOE INSPECTOR FINAL - DIRECTOR PROFESSIONAL SERVICES 125 mL/hr at 06/10/22 0634 125 mL/hr [...] src Pulse Resp SpO2 Height Weight 06/10/22 0902 (!) 90/36 -- -- 108 18 100 % -- -- 06/10/22 0900 -- -- -- 91 17 100 % -- -- 06/10/22 0802 (!) 93/39 -- -- 89 17 100 % -- -- 06/10/22 08 (!) -- -- 85 19 100 % -- -- 06/10/22 07 -- -- -- 85 20 100 % -- -- 06/10/22 0603 (!) -- -- 78 18 99 % -- -- 06/10/22 06 -- -- -- 81 22 99 % -- -- 06/10/22 0503 (!) 46 -- -- 87 19 99 % -- [...] -- 100 21 100 % -- -- 06/09/222329 -- 37.2 C (98.9 F) Axillary -- -- -- -- -- 06/09/222302 97/57 -- -- (!) 117 24 100 % -- -- 06/09/222299 -- -- -- (!) 112 25 98 % -- -- 06/09/222204 126/52 -- -- 108 24 98 % -- -- 06/09/222102 92/70 -- -- (!) 124 21 98 % -- -- 06/09/222036 113/84 -- -- 100 21 99 % -- -- 06/09/222014 -- 37.1 C (98.8 F) Axillary -- -- -- -- -- 06/09/22 1903 (!) 99/43 -- -- 80 15 97 % -- -- 06/09/22 1600 -- 37.4 C (99.3 F) Axillary -- -- -- -- -- 06/09/22 1334 (!) 98/40 -- -- 88 16 98 % -- -- 06/09/22 1156 (!) 88/41 37.8 C (100.1 F) Tympanic 87 15 [...] disoriented. Motor: Weakness present. Labs: Recent Labs 06/09/222 06/09/22 1640 06/10/22 0321 NA 138 138 140 K 4.3 4.5 3.5 CL 109* 109* 109* CO2 25 23 19* BUN 49* 47* 49* CREATININE 2.27* 2.11* 2.40* GLUCOSE 221* 283* 219* CALCIUM 8.4 7.8* 8.2* PROT 6.1* 6.0* 5.6* BILITOT 1.0 0.9 1.3 ALKPHOS 120 64 150* AST 24 23 24 ALT 11 9 11 PROCAL -- 17.91* -- Recent Labs 06/09/22 11306/09/22 1640 06/10/22 0321 [...] encounter. Associated Order(s): IP CONSULT TO NEPHROLOGY [facility] Nephrology Consultation Note Reason for [...] Patient Position: Pulse: 97 87 78 Resp: 18 Temp: 37.6 C (99.7 F) TempSrc: Axillary [...] and does track Data Recent Labs 06/09/22 1132 06/09/22 1640 06/10/22 [...] can be easily reached via messaging Jonathan Harwdick MD Office [facility] [phone] Thank you for asking us to participate in the management of your patient, please do not hesitate to contact me for any concerns regarding my recommendations as outlined above. I can be easily reached via perfect Serve SIGNATURE: Jonathan Hardwick MD PATIENT NAME: Salazar Coyle DATE: June 10, 2022 Office [facility] [phone] documented in this encounter [facility] 06-14-2022 Hospital Discharge instructions Nany Salazar RN - 06/14/2022 11:34 AM EDT Images from the original note were not included. Continuity of Care Form Patient Name: Salazar Coyle : 1950 Admit date: 06/09/2022 Discharge date: 06/16/2022 Code Status Order: Full Code Advance Directives: Y Admitting Physician: Franchesca Mckeon MD PCP: Paige Rivera DO Discharging Nurse: Nany Salazar Discharging Hospital Unit/Room#: B4465/B4465 A Discharging Unit Phone Number: [phone] Emergency Contact: Extended Emergency Contact Information Primary Emergency Contact: Deidra Vang Mobile Relation: Child Secondary Emergency Contact: Jesus Frank Mobile Relation: Spouse Preferred language: Swiss Neurosurgeon needed? No Past Surgical History: History reviewed. No pertinent surgical history. Immunization History: Immunization History Administered Date(s) Administered Influenza, High Dose Seasonal, Preservative Free 01/07/2018 Influenza, Unspecified 01/31/2017 Pneumococcal Polysaccharide PPSV23 01/31/2017 Active Problems: Medical Problems Problem List * (Principal) Septic shock (CMS/HCC) (HCC) Edema Hypertension Foot ulcer (HCC) Hyperlipemia Bladder spasm Type 2 diabetes mellitus with hyperglycemia (CMS/HCC) (HCC) Overview Signed 01/14/2022 2:38 PM by [...] Known to Doctor Izaguirre through consultation at [facility]. Long acting insulin: Insulin used for this [...] Chronic pain Osteoarthrosis PAF (paroxysmal atrial fibrillation) ([facility]) ([facility]) Cognitive decline Morbid obesity with BMI of 60.0-69.9, adult ([facility]) ([facility]) 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 ([facility]) Recurrent UTI Cerebrovascular accident ([facility]) Hyperglycemia Chronic indwelling Jose catheter Overview Signed [...] assistance Toileting Total assistance Feeding Minimal assistance Communications Editor Minimal assistance Med Delivery yes Wound Care [...] that are sent with patient): {JENN Patient Belongings:[id number]} RN SIGNATURE: MANAGEMENT/SOCIAL WORK SECTION Inpatient Status Date: 06/09/2022 Readmission Risk Assessment Score: Predictive Model Details Model IP RISK OF UNPLANNED READMISSION [[id number]] is not released. No score information can be retrieved Discharging to Facility/ Agency Name: [facility] Address: [address] [place] [address] Fax: Dialysis Facility (if applicable) Name: Address: Dialysis Schedule: Phone: Fax: Iridologist/Automatic Punch Press Operator signature: ICIAN SECTION Prognosis: poor Condition at [...] the diagnosis listed and that she requires group home facility for greater than 30 days. Update Admission H&P: No change in H&P PHYSICIAN SIGNATURE: The following attachments cannot be sent through Care Everywhere.Central Line Catheter (Swiss)Central Line Catheter Discharge Instructions (Swiss)How to Care for a Central Line Catheter (Swiss)documented in this encounter [facility] 06-12-2022 Telephone encounter Note OR Request for Darci PROCEDURE: cystoscopy, left ureteroscopy with laser lithotripsy and stent exchange DIAGNOSIS: left UPJ calculus FACILITY: [facility] DETAILS: OUTPT ANESTHESIA: GENERAL TIME REQUESTED: 2hr DATE REQUESTED: 3-4 weeks SURGERY ORDERS: will be Placed by Jimmy Bejarano POST OP FOLLOW UP: TBD REP REQUESTED: No SPECIAL NEEDS: Must be OR [address] or [address] [facility] due to body habitus/ medical comorbidities PAT: No recently admitted MEDICAL CLEARANCE: no Currently admitted at [facility] Nabor pina POMelissa Phone number in chart [facility] Work Phone: 06-09-2022 Emergency department Note REPORT CALLED TO Melissa Han RN 06/09/22 1509 EMERGENCY DEPARTMENT ENCOUNTER Pt Name: Salazar Coyle [...] status and decreased responsiveness. Patient presents from long-term via EMS. She apparently had a low-grade [...] (*) FIO2 21 Narrative: Performed by: Bentley Serna [facility], [address] [place] [id number] CLIA ID: [id number] CK - Normal CK 106 BLOOD CULTURE BLOOD CULTURE URINE CULTURE BLOOD GAS, VENOUS COMPLETE URINALYSIS WITH REFLEX TO CULTURE Narrative: The following orders were created for panel order Urinalysis complete with reflex to Culture. Procedure Abnormality Status --------- ------ Complete Urinalysis[[id number]] Please view results for these tests on [...] puncture but very low clinical suspicion for STREET LIGHT SERVICER infection as a cause of encephalopathy. More [...] intervention. FINAL IMPRESSION 1. Septic shock (CMS/HCC) ([facility]) DISPOSITION Admit 06/09/2022 02:01:17 PM PATIENT REFERRED [...] Wood DO 06/09/22 1419 PT. TRANSFERRED FROM [facility], FOR C/O LOW GRADE FEVER, LETHARGY, CHANGE IN MENTAL STATUS. (BASELINE= A + O X 3) documented in this encounter [facility] 06-09-2022 History and physical note Images from the original note were not included. Internal Medicine: MICU Initial History and Physical Name: Saalzar Coyle : 1950(71 y.o.) Date: 06/09/22 Attending: Dr. Thacker Subjective: Chief Complaint: Sepsis HPI: 71-year-old female with severe morbid obesity, history of atrial fibrillation diabetes type 2 chronic lymphedema transferred from [facility] to [facility] because of change of mental status low-grade [...] infection Past Medical History: Diagnosis Date A-fib (CMS/[facility]) (HCC) Anemia Diabetes ([facility]) Lymphedema Obesity History reviewed. No pertinent surgical [...] Normal [] Scar/Lesion/Mass Inspection of teeth/lips/gums Dentition: []Three Affiliated Teeth []Dentures Lips/Gums: []Intact []Lesion Present Mucosa: [][place] []Moist []Dry Neck: External Appearance Overall Appearance: [...] 18.4* ABGs: No results for input(s): PHART, DIR1KBV, PO2ART, WWL9IKR, SO2ART, Y5GTHKPW in the last 72 hours. Lactic Acid: [...] Name: SALAZAR COYLE : 1950 Exam Date/Time: 06/09/2022 12:23 Procedure: XR CHEST [...] and Plan: Principal Problem: Septic shock (CMS/HCC) ([facility]) Assessment/Plan: Severe sepsis/post septic shock patient has [...] rhythm Pulmonary examination significant for: Clear lung johnson Capillary refill is: 3 seconds Peripheral Pulse [...] physicians, excluding procedures. documented in this encounter [facility] 04-15-2021 Hospital Discharge instructions Nayely Vuong RN [...] most local grocery stores, pharmacies, and chain [employer]-stores. If you have any questions about your [...] Nurse: Nayely Vuong RN Discharging Hospital Unit/Room#: 1627/518957 Discharging Unit Emergency Contact: Extended Emergency Contact Information Primary Emergency Contact: Deidra Vang Mobile Relation: Child Past Surgical History: History reviewed. No pertinent surgical history. Immunization History: Immunization History Administered Date(s) Administered Influenza Virus Vaccine 01/31/2017 Influenza, High Dose (Fluzone 65 yrs and older) 01/07/2018 Pneumococcal Polysaccharide ([id number]) 01/31/2017 Active Problems: Patient Active Problem List Diagnosis Code Foot ulcer ([facility]) L97.509 Wounds, multiple T07.XXXA Type 2 diabetes mellitus with hyperglycemia ([facility]) E11.65 Cerebrovascular accident ([facility]) I63.9 Recurrent UTI N39.0 PAF (paroxysmal atrial fibrillation) ([facility]) I48.0 Osteoarthrosis M19.90 Hypertension I10 Hyperlipemia E78.5 Degenerative disc disease, cervical M50.30 Chronic pain G89.29 Bladder spasm N32.89 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 ([facility]) E11.621, L97.509 Morbid obesity with BMI of 60.0-69.9, adult ([facility]) E66.01, Z68.44 Cognitive decline R41.89 Edema R60.9 [...] Dependent Dressing Dependent Toileting Dependent Feeding Dependent Communications Editor Dependent Med Delivery whole Wound Care Documentation and Therapy: Negative Pressure Wound Therapy Foot Right;Plantar (Active) $ Standard NPWT >50 sq cm PER TX $ Yes 04/08/21 0900 Wound Type Diabetic foot ulcer 04/12/21 0745 Dressing Type Black foam 04/12/21 0745 Cycle Continuous 04/12/21 0745 Target Pressure (mmHg) 125 04/12/21 0745 Canister changed? No 04/10/212227 Dressing Status Clean;Dry;Intact 04/12/2145 Dressing Changed Changed/New 04/11/211999 Drainage Amount Small 04/10/212227 Dressing Change Due 04/13/21 04/12/2145 Output (ml) 0 ml 04/12/21 0623 Wound Assessment Other (Comment) 04/01/211999 [place]-wound Assessment Other (Comment) 04/10/212227 Odor None 04/10/212227 Number of days: 7 Wound Foot Right;Plantar Wound Vac s/p surgical debridement (Active) Dressing Status Dry;Clean;Intact 04/12/21 0745 Wound Cleansed Other (Comment) 04/11/21 1019 Dressing/Treatment ABD;[place]lin wrap;Other (comment) 04/03/212041 Dressing Change Due 04/13/20 04/11/21 1019 Wound Length (cm) 9 cm 04/05/2113 Wound Width (cm) 5.5 cm 04/05/21912 Wound Depth (cm) 0.8 cm 04/05/2113 Wound Surface Area (cm^2) 49.5 cm^2 04/05/21 0913 Wound Volume (cm^3) 39.6 cm^3 04/05/2113 Wound Assessment Other (Comment) 04/12/2145 Drainage Amount Small 04/10/212227 Drainage Description Purulent [...] Assessment Other (Comment) 04/10/212227 Drainage Amount Scant 04/11/21 2000 Odor None 04/11/211999 [place]-wound Assessment Fragile;Intact 04/10/212227 Number of days: Wound 04/05/21 Heel Right;Plantar;Medial (Active) Wound Etiology Deep tissue/Injury 04/12/2145 Dressing Status Clean;Dry;Intact 04/12/21744 Wound Cleansed Other (Comment) 04/11/21 1019 Wound Length (cm) 1.5 cm 04/11/211999 Wound Width (cm) 1 cm 04/11/21 2000 Wound Depth (cm) 0 cm 04/11/211999 Wound Surface Area (cm^2) 1.5 cm^2 04/11/211999 Change in Wound Size % (l*w) 0 04/11/211999 Wound Volume (cm^3) 0 cm^3 04/11/211999 Wound Assessment [place]/red;Purple/maroon 04/11/21 1019 Number of days: 7 Wound [...] Readmission: 35 Discharging to Facility/ Agency Name: [facility] [address] [place] [address] [place] [address] Dialysis Facility (if applicable) Name: Address: Dialysis Schedule: Phone: Fax: Iridologist/Automatic Punch Press Operator signature: PHYSICIAN SECTION Prognosis: Fair Condition at Discharge: Stable Rehab Potential (if transferring to Rehab): Fair Recommended Labs or Other Treatments After Discharge: None Physician Certification: I certify the above information and transfer of Salazar Coyle is necessary for the continuing treatment of the diagnosis listed and that she requires [facility] Facility for greater 30 days. Update Admission [...] y.o.) Date: April 15, 2021 Med Team: Alvaro Attending: Dr. Plascencia [...] follow outpatient, with plans for discharge to [facility]. - No acute events o/n, however pt became irritable this am when labs redrawn 2/to hemolyzed sample. Received prn oxy x1 yesterday (2038). Pt hypertensive w/ SBP 192 yesterday, otherwise VSS. No daily labs available due to hemolyzed sample and pt refusal for repeat draw. - Currently pt denying daily labs, denies any changes in prior sx. No new complaints. Awaiting return to [facility]. Agree with above Review of Systems Constitutional: [...] replaced 04/10/21 Dispo: Plan for discharge to [facility], will d/w TCC - Goals of Care: FULL [...] Ensure HP at dinner. 2. Consider re-consult MEDICARE NURSE to evaluate possible upgrade of textures as [...] TDC removed on 04/12. Discharge anticipated to [facility] today. Staff reports patient only ate bites [...] Moderate to Severe (patient with lymphedema) Extremities Synthetic Gem Press Operator Strength: Not Performed Estimated Daily Nutrient Needs: Energy (kcal): 22-25 kcals/kg IBW = 4874-9263 kcals/day; Weight Used for Energy Requirements: [place] Protein (g): 1.2-1.4g = 60-70g protein/day; Weight Used for Protein Requirements: [place] Fluid (ml/day): per MD; Method Used for [...] noted pt started on HD this admit) [place] Body Weight: 110 lbs; Nutrition Interventions: Food [...] from the original note were not included. [facility] Wound Care follow up Note Salazar Coyle [...] and prn 4. BLE lymphedema - leave LINDSEY - elevate above level of heart TID for at least 30 min Nutritional support Follow up with wound care Any questions or concerns please will or perfect serve "wound care". Thank you [...] my own independent evaluation of this patient. [facility] Progress Note Elsa/ Salazar Coyle 70 y.o. year old female [...] Nightly Ladonna Shaub, DO 28 Units at 04/13/211999 insulin lispro (HUMALOG) injection vial 8 Units 8 Units SubCUTAneous TID WC Ladonna Shaub, DO 8 Units at 04/14/21 0910 glucose [...] Nightly Keon Young MD 3 mg at 04/13/211953 acetaminophen (TYLENOL) tablet 975 mg 975 mg [...] Topical BID Oriana Cho, DO Given at 04/13/211952 polyethylene glycol (GLYCOLAX) packet 17 g 17 [...] range of affect Labs: Recent Labs 04/12/21 0526 04/13/21 0548 04/14/21 0254 WBC 4.3 4.4 4.9 [...] in consultation for WHITLEY. #WHITLEY/ATN, resolving, on GRID TRIMMER since 03/17/2021 - off HD since 04/06/21 #HTN #Metabolic Encephalopathy suspected from gabapentin/baclofen #Acute on Chronic Resp Acidosis from PHOEBE #Acute on Chronic Bilateral lower ext Cellulitis #Anemia #DM2 Plan/ -Scr improved, good uop, BP stable. WHITLEY resolving. -Was on GRID TRIMMER 03/17/21-04/06/21. TDC removed 04/12 -OK to give diuretics PRN for volume management -Strict I&Os -Rest of management per primary team -Okay to discharge from nephrology perspective when medically cleared -We will follow peripherally from now on. Please, call us with any questions or concerns. Edyta Alfredo MD [facility] Pager #[phone] 04/14/21 11:31 AM Images from the original [...] follow outpatient, with plans for discharge to [facility]. - No acute events o/n. Received prn [...] replaced 04/10/21 Dispo: Plan for discharge to [facility] today, given stable and improving medical and [...] tubing at time of transfer to SNF. [facility] Progress Note Elsa/ Salazar Coyle 70 y.o. year old female [...] 28 Units 28 Units SubCUTAneous Nightly Ladonna Norbertoub, DO 28 Units at 04/12/212102 insulin lispro (HUMALOG) injection vial 8 Units 8 Units SubCUTAneous TID WC Ladonnakumar Thorntonub, DO 8 Units at 04/13/21 0805 glucose (GLUTOSE) 40 % oral gel 15 g 15 g Oral PRN Ladonnakumar Thorntonub, DO dextrose 50 % IV solution 12.5 g IntraVENous PRN Ladonna Thorntonub, DO glucagon (rDNA) injection 1 mg 1 mg IntraMUSCular PRN Ladonna Ochoa DO dextrose 5 % solution 100 mL/hr IntraVENous PRN Ladonna Ochoa DO hydrALAZINE (APRESOLINE) injection 10 mg 10 mg IntraVENous Q6H PRN Ladonna Ochoa DO apixaban (ELIQUIS) tablet 5 mg 5 [...] BID Juan Adams, DO 5 mg at 04/13/21 0758 melatonin [...] IntraVENous PRN Leonel Sood MD Objective/ Vitals: 04/11/21193704/12/21 0823 04/12/21200504/13/21 0757 BP: (!) 163/69 98/68 (!) 162/101 (!) 141/60 Pulse: 72 74 72 73 Resp: Temp: 97 F (36.1 C) 97.8 F [...] Psychiatric: awake, confused Labs: Recent Labs 04/11/2121704/12/21 0526 04/13/21 0548 WBC 4.6 4.3 4.4 HGB 8.3* [...] WHITLEY. #WHITLEY/ATN from Normotensive ATN (hypovolemia) on GRID TRIMMER since 03/17/2021 - off HD since 04/06/20 #HTN #Metabolic Encephalopathy suspected from gabapentin/baclofen #Acute on Chronic Resp Acidosis from PHOEBE #Acute on Chronic Bilateral lower ext Cellulitis #Anemia #DM2 Plan/ -Scr remains stable, good uop, BP stable -originally was iHD per [facility] schedule, last HD 04/06 -24 hr urine [...] discharge -We will follow Edyta Alfredo MD [facility] Pager #[phone] 04/13/21 11:51 AM Images from the original note were not included. Med Team Progress Note Salazar Coyle : 1950(70 y.o.) Date: April 13, 2021 Med Team: Alvaro Attending: Dr. Plascencia [...] follow outpatient, with plans for discharge to [facility]. 04/13/2021 - No acute events overnight, resting comfortably in bed. - THD and PICC lines removed without complication. No gross erythema, bruising, discharge or pain present at sites. - States that she is ready for discharge to [facility] and is at her baseline at this [...] replaced 04/10/21 Dispo: Plan for discharge to [facility] today, given stable and improving medical and [...] my evaluation. Attending comments are in bold. [facility] Progress Note Subjective/ Salazar Coyle [...] 28 Units 28 Units SubCUTAneous Nightly Ladonna Norbertoub, DO insulin lispro (HUMALOG) injection vial 8 Units 8 Units SubCUTAneous TID WC Ladonnakumar Thorntonub, DO 8 Units at 04/12/21 1252 glucose (GLUTOSE) 40 % oral gel 15 g 15 g Oral PRN Ladonna Thorntonub, DO dextrose 50 % IV solution 12.5 g IntraVENous PRN Ladonna Thorntonub, DO glucagon (rDNA) injection 1 mg 1 mg IntraMUSCular PRN Ladonna Thorntonub, DO dextrose 5 % solution 100 mL/hr IntraVENous PRN Ladonnakumar Thorntonub, DO hydrALAZINE (APRESOLINE) injection 10 mg 10 mg IntraVENous Q6H PRN Ladonna Ochoa, DO apixaban (ELIQUIS) tablet 5 mg 5 [...] BID Juan Adams, DO 5 mg at 04/12/21 0814 melatonin [...] IntraVENous PRN Leonel Sood MD Objective/ Vitals: 04/10/21204904/11/2180604/11/21193704/12/21 0823 BP: (!) 125/54 (!) 157/72 (!) [...] Psychiatric: awake, confused Labs: Recent Labs 04/10/21 02004/11/21 0218 04/12/21 0526 WBC 4.5 4.6 4.3 HGB 8.4* [...] WHITLEY. #WHITLEY/ATN from Normotensive ATN (hypovolemia) on GRID TRIMMER since 03/17/2021 - off HD since 04/06/20 [...] discharge -we will follow Edyta Alfredo MD [facility] Pager #[phone] 04/12/21 3:18 PM 1405 Order received to [...] HD. Nephrology following and evaluating need for exterminator HD, otherwise can be cleared for [facility]. . 04/12/2021 - No acute events overnight, resting comfortably in bed - Plan to remove tunneled dialysis catheter today before discharge to [facility] - Denies any chest pain, SOB, weakness, [...] to discharge Dispo: Plan for discharge to [facility] today, given stable and improving medical and [...] [facility] [place] Patient: Salazar Coyle Unit/Bed: 1627/733104 Date of : 1950 Acct: [id number] Admitting Diagnosis: Right foot infection [L08.9] Subacute [...] DVT Prophylaxis: Data: CBC: Recent Labs 04/09/21 0118 04/10/21 0209 04/11/21 0218 WBC 4.8 4.5 4.6 RBC 3.17* 3.08* [...] # WHITLEY/ATN from Normotensive ATN (hypovolemia) on GRID TRIMMER since 03/17/2021 - Scr remains stable, good uop, BP stable - originally was iHD per [facility] schedule - Last HD 04/06 - [...] hesitate to call with any questions Pager [phone] Comprehensive Nutrition Assessment Type and Reason for [...] to promote po intake. 2. Consider re-consult MEDICARE NURSE. Patient dislikes dysphagia soft and bite sized [...] dysphagia soft and bite sized recommendation by MEDICARE NURSE is wrong. Malnutrition Assessment: Malnutrition Status: At [...] + Lymphedema and WHITLEY. I/O is negative (since 03/28/21)) Body Fat Loss: No significant body fat loss Muscle Mass Loss: No significant muscle mass loss Fluid Accumulation: 7 - Moderate to Severe (patient with chronic lymphedema) Extremities Synthetic Gem Press Operator Strength: Not Performed Estimated Daily Nutrient Needs: Energy (kcal): 22-25 kcals/kg IBW = 5492-1051 kcals/day; Weight Used for Energy Requirements: [place] Protein (g): 1.2-1.4g = 60-70g protein/day; Weight Used for Protein Requirements: [place] Fluid (ml/day): per MD; Method Used for Fluid Requirements: Other (Comment) Nutrition Related Findings: Alex = 13, loss of appetite 04/10, BM on 04/09, non pitting BUE edema, +BLE edema, I/O: - (since 03/28). Meds: Lipitor, Lioresal, Calcium Cholecalciferol, [...] noted pt started on HD this admit) [place] Body Weight: 110 lbs; Nutrition Interventions: Food [...] Planning: Too soon to determine Contact: Pager [phone] Images from the original note were not [...] HD. Nephrology following and evaluating need for residential HD, otherwise can be cleared for [facility]. Overnight, patient had jose replaced. Was difficult to place, called urology. Placed jose, put on keflex, and urine cultures ordered. Had 900cc's output. Nephro redoing urine collection will end today ~noon-1pm. - Currently, patient is resting in bed. She denies any acute complaints (no chest pain, no SOB). She is very eager to go to [facility] today. Agree with above Review of Systems [...] Last HD on 04/06/21 - Nephrology following ordered 24 hour urine [...] Dispo: Likely to be discharged back to [facility] given improvement with kidney function. Will discuss [...] case with the nurse and resident team. [facility] Nephrology Progress Note Subjective/ Salazar Coyle 70 [...] (!) 155/71 Pulse: 70 81 80 Resp: Temp: 97.6 F (36.4 C) 97.5 F [...] BID Juan Adams, DO 5 mg at 04/10/21913 melatonin tablet 3 mg 3 mg Oral Nightly Keon Young MD 3 mg at 04/09/212008 acetaminophen (TYLENOL) tablet 975 mg 975 mg Oral TID Oriana Cho, DO 975 mg at 04/10/21913 aspirin chewable tablet 81 mg 81 mg Oral Daily Oriana Cho, DO 81 mg at 04/10/21 09 atorvastatin (LIPITOR) tablet 20 mg 20 mg Oral Daily Oriana Cho, DO 20 mg at 04/10/21913 calcium-cholecalciferol 500-200 MG-UNIT per tablet 1 tablet 1 tablet Oral Daily Oriana Cho, DO 1 tablet at 04/10/21 09 donepezil (ARICEPT) tablet 5 mg 5 mg Oral Nightly Oriana Cho, DO 5 mg at 04/09/212056 pantoprazole (PROTONIX) tablet 40 mg 40 mg Oral QAM AC Oriana Cho, DO 40 mg at 04/10/21 0604 gabapentin (NEURONTIN) capsule 100 mg 100 mg Oral BID Oriana Cho, DO 100 mg at 04/10/21 0914 insulin lispro (HUMALOG) injection vial 0-6 Units 0-6 Units SubCUTAneous TID Oriana Cho, DO 2 Units at 04/10/21 09 mineral oil-hydrophilic petrolatum (AQUAPHOR) ointment Topical BID Oriana Cho, DO Given at 04/09/212007 polyethylene glycol (GLYCOLAX) packet 17 g 17 g Per G Tube Daily PRN Oriana Cho, DO ipratropium-albuterol (DUONEB) nebulizer solution 1 ampule 1 ampule Inhalation Q4H PRN Leonel Sood MD sodium chloride flush 0.9 % injection 10 mL 10 mL IntraCATHeter Q12H Leonel Sood MD 10 mL at 04/10/21 0447 [...] dextrose sodium chloride dextrose Data/ Recent Labs 04/08/210 04/09/2111704/10/21 020 WBC 4.2 4.8 4.5 HGB 8.1* 8.8* 8.4* HCT 25.0* 27.8* 26.8* MCV 87.5 87.7 87.1 PLT 187 210 211 Recent Labs 04/08/210 04/08/21 0140 04/08/21 1934 04/09/218 04/10/21 0209 NA 137 -- -- 139 [...] # WHITLEY/ATN from Normotensive ATN (hypovolemia) on GRID TRIMMER since 03/17/2021 - Scr improving, trend for now, uop picking up??, monitor, BP stable - originally was iHD per [facility] schedule - Last HD 04/06 - [...] HD. Nephrology following and evaluating need for residential HD. - No acute events overnight. - Currently, resting and bed, no complaints - Discussed labs and UO, is excited that her kidneys are working again - Wishes to go back to [facility] on 04/11/21; instructed her that we would [...] Dispo: Likely to be discharged back to [facility] given improvement with kidney function. Will discuss [...] case with the nurse and resident team. [facility] Nephrology Progress Note Subjective/ Salazar [...] vial 5 Units 5 Units SubCUTAneous TID WC Ladonna Shaub, DO 5 Units at 04/09/21 1137 glucose (GLUTOSE) 40 % oral gel 15 g 15 g Oral PRN Ladonna Shaub, DO dextrose 50 % IV solution 12.5 g IntraVENous PRN Ladonna Shaub, DO glucagon (rDNA) injection 1 mg 1 mg IntraMUSCular PRN Ladonna Shaub, DO dextrose 5 % solution 100 mL/hr IntraVENous PRN Ladonna Shaub, DO apixaban (ELIQUIS) tablet 5 mg 5 mg Oral BID Aubrie Whiting MD 5 mg at 04/09/21 0825 insulin glargine (LANTUS) injection vial 15 Units 15 Units SubCUTAneous Nightly Zhao Willis MD 15 Units at 04/08/21 2037 sennosides-docusate sodium (SENOKOT-S) 8.6-50 MG tablet 2 [...] BID Juan Adams, DO 5 mg at 04/09/21 0824 melatonin tablet 3 mg 3 mg Oral Nightly Keon Young MD 3 mg at 04/08/212031 acetaminophen (TYLENOL) tablet 975 mg 975 mg [...] Oriana Cho, DO 1 tablet at 04/09/21 08 donepezil (ARICEPT) tablet 5 mg 5 [...] in this interval not displayed. Assessment/Plan: Salazar Leonides 70 y.o. year old female who we are seeing in consultation for WHITLEY. # WHITLEY/ATN from Normotensive ATN (hypovolemia) on GRID TRIMMER since 03/17/2021 - Scr staying stable ~ 1.6 now, uop picking up??, monitor, BP stable - originally was iHD per [facility] schedule - Last HD 04/06 - 24 hr urine albino- undercoll sample, cannot interpret - reorder another 24 hr albino today, dw RN - will need jose catheter maintained [...] HD. Nephrology following and evaluating need for residential HD. - No acute events overnight. - [...] case with the nurse and resident team. [facility] Nephrology Progress Note Subjective/ Salazar [...] ROS otherwise negative Objective/ Vitals: 04/07/21 0811 04/07/21 2013 04/08/21 0630 [...] tablet 2 tablet 2 tablet Oral Daily Zaho Willis MD 2 tablet at 04/08/21 0810 [...] Oriana Cho, DO 1 tablet at 04/08/21 0810 donepezil (ARICEPT) tablet 5 mg 5 mg [...] # WHITLEY/ATN from Normotensive ATN (hypovolemia) on GRID TRIMMER since 03/17/2021 - Scr as expected, uop picking up??, monitor, BP stable - originally was iHD per [facility] schedule - Last HD 04/06 - [...] from the original note were not included. [place] [id number] Dept: [phone] Loc: [phone] Orthopedic Progress Note Name: Salazar Coyle Date:04/08/2021 [...] Zhao Willis MD, 3 Units at 04/08/21 08 insulin glargine (LANTUS) injection vial 15 Units, [...] 5 mg, 5 mg, Oral, BID, Juan Adams DO, 5 mg at 04/08/21826 melatonin tablet 3 mg, 3 mg, Oral, Nightly, Keon Young MD, 3 mg at 04/07/212015 acetaminophen (TYLENOL) tablet 975 mg, 975 mg, Oral, TID, Oriana Cho, DO, 975 mg at 04/08/21 08 aspirin chewable tablet 81 mg, 81 mg, Oral, Daily, Oriana Cho, DO, 81 mg at 04/08/21 08 atorvastatin (LIPITOR) tablet 20 mg, 20 mg, [...] Oriana Cho, DO, 40 mg at 04/07/21 0921 gabapentin (NEURONTIN) capsule 100 mg, 100 mg, [...] Leonel Sood MD, 250 Units at 04/01/21 173 miconazole (MICOTIN) 2 % powder, , Topical, [...] Friends and Family: Not on file Attends [employer]: Not on file Active Member of [...] is for patient to be discharged to [facility] if patient requires hemodialysis or patient will be discharged to [facility] if no dialysis is deemed necessary, per most recent residential care officer note (04/07/21) -Ortho to sign off. Please page proposition player resident via Perfect [employer] or pager [phone] with any questions. I spent over 51% [...] dressing change) Pt premedicated for pain per staff development nurse with oral pain medication, prior to wound [...] pt not allowing her leg to be lifted.)[place] tissues with surrounding pink epithelial tissues. Periwound clear. No purulence. Cleansed with saline, patted dry, and covered with mepilex 4x4 foam dressing. Padded with ABD and secured with kerlix. Unable to assess medial plantar heel at this time due to pt intolerance to dressing change and further assessment of heel. Wound Care will continue to follow pt for wound VAC dressing changes M/W/. Will plan for next dressing change Sunday. Please page Wound Care Team for any questions or concerns at pager [phone]. Images from the original note were not [...] disposition for patient - No beds at [facility], will update Sunday - If no HD [...] with patient. Coordinated care with resident team. [facility] Nephrology Progress Note Subjective/ Salazar [...] Nightly Zhao Willis MD 15 Units at 04/06/21 2140 sennosides-docusate sodium (SENOKOT-S) 8.6-50 MG tablet 2 tablet 2 tablet Oral Daily Zhao Willis MD 2 tablet at 04/07/21 0814 [START ON 04/08/2021] collagenase ointment Topical Q MWF Phillip Victor MD oxyCODONE (ROXICODONE) immediate release tablet 5 mg 5 mg Oral Q6H PRN Zhao Willis MD 5 mg at 04/05/21 2149 heparin (porcine) injection 2,100 Units 2,100 Units IntraCATHeter PRN Reynold Garner MD 2,100 Units at 04/04/21 1200 heparin (porcine) injection 2,200 Units 2,200 Units IntraCATHeter PRN Reynold Garner MD 2,200 Units at 04/04/21 1200 baclofen (LIORESAL) tablet 5 mg 5 mg Oral BID Juan Moizjuan, DO 5 mg at 04/07/21 0814 melatonin tablet 3 mg 3 mg Oral Nightly Keon Young MD 3 mg at 04/06/212048 acetaminophen (TYLENOL) tablet 975 mg 975 mg [...] # WHITLEY/ATN from Normotensive ATN (hypovolemia) on GRID TRIMMER since 03/17/2021 - Scr as expected, uop picking up??, monitor, BP stable - originally was iHD per MWF schedule - Last HD 04/06 - will [...] y.o.) Date: April 07, 2021 Med Team: Melissa Attending: Dr. Sanchez Chief Complaint: R chronic [...] disposition for patient - No beds at [facility], will update Sunday - If no HD [...] Patient acknowledges why she cannot go to [facility] anymore. On further evaluation, the patient illustrates [...] from the original note were not included. [facility] Wound Care follow up Note Salazar Coyle [...] my own independent evaluation of this patient. [facility] Nephrology Progress Note Subjective/ Salazar Coyle 70 [...] Nightly Kodak Dove MD 14 Units at 04/05/21 215 heparin (porcine) injection 2,100 Units 2,100 Units IntraCATHeter PRN Reynold Garner MD 2,100 Units at 04/04/21 1200 heparin (porcine) injection 2,200 Units 2,200 Units IntraCATHeter PRN Reynold Garner MD 2,200 Units at 04/04/21 1200 baclofen (LIORESAL) tablet 5 mg 5 mg Oral BID Juan Adams, DO 5 mg at 04/06/21822 melatonin tablet 3 mg 3 mg Oral Nightly Keon Young MD 3 mg at 04/05/212148 acetaminophen (TYLENOL) tablet 975 mg 975 mg Oral TID Oriana Cho, DO 975 mg at 04/06/2123 aspirin chewable tablet 81 mg 81 mg Oral Daily Oriana Cho, DO 81 mg at 04/06/21 0824 atorvastatin (LIPITOR) tablet 20 mg 20 mg Oral Daily Oriana Cho, DO 20 mg at 04/06/21 0824 calcium-cholecalciferol 500-200 MG-UNIT per tablet 1 tablet 1 tablet Oral Daily Oriana Cho, DO 1 tablet at 04/06/2124 docusate sodium (COLACE) capsule 100 mg 100 mg Oral BID Oriana Cho, DO 100 mg at 04/06/21 0823 donepezil (ARICEPT) tablet 5 mg 5 mg Oral Nightly Oriana Cho, DO 5 mg at 04/05/212152 pantoprazole (PROTONIX) tablet 40 mg 40 mg Oral QAM AC Oriana Cho, DO 40 mg at 04/06/21 05 gabapentin (NEURONTIN) capsule 100 mg 100 mg [...] # WHITLEY/ATN from Normotensive ATN (hypovolemia) on GRID TRIMMER since 03/17/2021 - Scr as expected, uop picking up??, monitor, BP stable - originally was iHD per MWF schedule - Last HD 04/06 today - [...] Name: Salazar Coyle Patient : 1950 Acct: [id number] Date of Admission: 03/08/2021 Room/Bed: [facility]/092110 Code Status: Full Code Allergies: No Known [...] (Bicarb): 35 Na+ Modeling: Not Applicable Dialyzer: [id number] Dialysate Temperature (C): 36 Blood Flow Rate [...] - Before each treatment: Dialysis Machine No.: [id number] RO Machine No.: [id number] Dialyzer Lot No.: [id number] RO Machine Log Sheet Completed: Yes Machine Alarm Self Test: Completed;Passed (04/06/21 0800) Machine Autotest: Completed,Passed Air Foam Detector: Tested,Proper Function,pH Reading Extracorporeal Circuit Tested for Integrity: Yes Machine Conductivity: 13.8 Manual Conductivity: 13.6 Machine Ph: 7 Bicarbonate Concentrate Lot No.: [id number] Acid Concentrate Lot No.: [id number] Manual Ph: 7 Bleach Test (Neg): Yes Bath Temperature: 96.8 F (36 C) Tubing Lot#: [id number] Conductivity Meter Serial #: [id number] [employer] Secure?: Yes Venous Parameters Set?: Yes Arterial Parameters Set?: Yes Saline Line Double Clamped?: Yes Air Foam Detector Engaged?: Yes Machine Functioning Alarm Free? Yes Prime Given: 200ml Chlorine Testing - Before each treatment and every 4 hours: Treatment Treatment Number: 3 Time On: 37 Time Off: 1136 Treatment Goal: 3-4L Weight: (!) 392 lb [...] Evaluate;Review case;New orders (03/20/21 1037) Provider Name: Garner (03/20/21 1037) Provider Notification: Physician (03/20/21 [...] with WHITLEY/ATN from Normotensive ATN (hypovolemia) on GRID TRIMMER since 03/17/2021. Acute encephalopathy, likely multifactorial from [...] a dysphagia soft and bite sized diet. MEDICARE NURSE signed off. Patient states that she drinks [...] ot bed scale and fluid status. I/O: -11903. Recently 392-414 lbs since last follow up.) Body Fat Loss: Unable to assess Muscle Mass Loss: Unable to assess Fluid Accumulation: 7 - Moderate to Severe Extremities Synthetic Gem Press Operator Strength: Not Performed Estimated Daily Nutrient Needs: Energy (kcal): 22-25 kcals/kg IBW = 9603-2180 kcals/day; Weight Used for Energy Requirements: [place] Protein (g): 1.2-1.4g = 60-70g protein/day; Weight Used for Protein Requirements: [place] Fluid (ml/day): per MD; Method Used for Fluid Requirements: Other (Comment) Nutrition Related Findings: Alex = 13, abdomen rotund, active bowel sounds, non pitting BUE edema, + 2 BLE edema, 03/31 BM noted. /3 HD: 3000 ml. Meds: Lipitor, Lioresal, Calcium [...] noted pt started on HD this admit) [place] Body Weight: 110 lbs; Nutrition Interventions: Food [...] Too soon to determine Contact: Pager [phone] [facility] Nephrology Progress Note Elsa/ Salazar Coyle 70 y.o. year old female [...] Kodak Dove MD 14 Units at 04/04/21 2136 heparin (porcine) injection 2,100 Units 2,100 Units IntraCATHeter PRN Reynold Garner MD 2,100 Units at 04/04/21 1200 heparin (porcine) injection 2,200 Units 2,200 Units IntraCATHeter PRN Reynold Garner MD 2,200 Units at 04/04/21 1200 baclofen (LIORESAL) tablet 5 mg 5 mg Oral BID Juan Betancourtbettie, DO 5 mg at 04/05/21 0918 melatonin tablet 3 mg 3 mg Oral Nightly Keon Young MD 3 mg at 04/04/21 2133 acetaminophen (TYLENOL) tablet 975 mg 975 mg [...] Oriana Cho, DO 100 mg at 04/05/21 0926 donepezil (ARICEPT) tablet 5 mg 5 mg [...] MD sodium chloride dextrose Data/ Recent Labs 04/03/2122104/04/21904/05/21223 WBC 4.0 3.9 3.9 HGB 8.2* 8.4* 8.2* HCT 25.9* 26.7* 26.0* MCV 87.5 87.5 88.1 PLT 225 237 209 Recent Labs 04/03/2122104/04/210 04/05/21 0224 NA 140 139 137 K 3.9 3.9 4.0 CL 104 102 101 CO2 31* 29 29 GLUCOSE 207* 229* 210* PHOS 3.6 3.8 3.3 BUN 21* 23* 16 CREATININE 2.03* 2.11* 1.56* Assessment/Plan: Salazar Coyle 70 y.o. year old female who we are seeing in consultation for WHITLEY. # WHITLEY/ATN from Normotensive ATN (hypovolemia) on GRID TRIMMER since 03/17/2021 - Scr as expected, uop picking up?, monitor, BP stable - HD per MWF schedule - Last HD 04/04 yesterday, 3L [...] any questions or concerns. Ana Brennan APRN, DIRECTOR PROFESSIONAL SERVICES [facility] [employer] [phone] office I have reviewed the patient chart and dw SET UP AND LAY OUT INSPECTOR the patient case, and agree with above documented A & P, any variance is noted below Same plan as above Octavio Mlils MD [facility] team Images from the original note [...] adamant to want to pursue care at [facility] at this time and disappointed that she [...] dressing application) Pt premedicated for pain per staff development nurse with oral pain medication, prior to wound [...] pt not allowing her leg to be lifted.)[place] tissues with surrounding pink epithelial tissues. Periwound [...] follow pt for wound VAC dressing changes M/W/F. Will plan for next dressing change Sunday. Please page Wound Care Team for any questions or concerns at pager [phone]. Notified Orthopedics regarding wound vac dressing to be replaced tomorrow, nursing will continue santyl with WTD dressing as ordered. Images from the original note were not included. Med Team Progress Note Salazar Coyle : 1950(70 y.o.) Date: April 04, 2021 Med Team: B Attending: Dr. Jet Sanchez Chief Complaint: R Chronic Foot wound; AMS Subjective: Overnight, patient was moderately hypertensive. However, did have several hypotensive episodes as well. Today, patient is doing well. No acute issues and no distress. Patient is completely asymptomatic and, "ready to go." Placement still pending per SW/TCC team. Although patient is adamant she wants to attend [facility], neither facility can do HD with patient [...] with patient. Coordinated care with resident team. [facility] Ne[facility] Progress Note Subjective/ Salazar [...] Nightly Kodak Dove MD 14 Units at 04/03/212040 oxyCODONE (ROXICODONE) immediate release tablet 5 mg 5 mg Oral Q8H PRN Veronika Segal MD 5 mg at 04/04/21 08 collagenase ointment Topical Daily Phillip Victor MD [...] Oriana Cho, DO 975 mg at 04/04/21 08 aspirin chewable tablet 81 mg 81 mg Oral Daily Oriana Cho, DO 81 mg at 04/04/21811 atorvastatin (LIPITOR) tablet 20 mg 20 mg Oral Daily Oriana Cho, DO 20 mg at 04/04/21811 calcium-cholecalciferol 500-200 MG-UNIT per tablet 1 tablet 1 tablet Oral Daily Oriana Cho, DO 1 tablet at 04/04/21811 docusate sodium (COLACE) capsule 100 mg 100 mg Oral BID Oriana Cho, DO 100 mg at 04/04/21 0812 donepezil (ARICEPT) tablet 5 mg 5 mg Oral Nightly Oriana Cho, DO 5 mg at 04/03/21 204 pantoprazole (PROTONIX) tablet 40 mg 40 mg [...] Leonel Sood MD 5,000 Units at 04/03/21 204 ipratropium-albuterol (DUONEB) nebulizer solution 1 ampule 1 [...] MD sodium chloride dextrose Data/ Recent Labs 04/02/215304/03/2122104/04/21 0010 WBC 4.4 4.0 3.9 HGB 8.1* 8.2* 8.4* HCT 25.6* 25.9* 26.7* MCV 87.6 87.5 87.5 PLT 217 225 237 Recent Labs 04/02/215304/03/2122104/04/21 0010 NA 140 140 139 K 3.8 3.9 3.9 CL 102 104 102 CO2 30 31* 29 GLUCOSE 210* 207* 229* PHOS 3.6 3.6 3.8 BUN 16 21* 23* CREATININE 1.95* 2.03* 2.11* Assessment/Plan: Salazar Coyle 70 y.o. year old female who we are seeing in consultation for WHITLEY. # WHITLEY/ATN from Normotensive ATN (hypovolemia) on GRID TRIMMER since 03/17/2021 - Scr as expected, uop [...] Name: Salazar Coyle Patient : 1950 Acct: [id number] Date of Admission: 03/08/2021 Room/Bed: [facility]/852927 Code Status: Full Code Allergies: No Known [...] (Bicarb): 35 Na+ Modeling: Not Applicable Dialyzer: [id number] Dialysate Temperature (C): 36 Blood Flow Rate [...] 04/04/21 1222 Nasal cannula Labs Recent Labs 04/02/215304/03/212 04/04/21 0010 WBC 4.4 4.0 3.9 HGB 8.1* 8.2* 8.4* HCT 25.6* 25.9* 26.7* PLT 217 225 237 Recent Labs 04/02/215304/03/2122104/04/21 0010 NA 140 140 139 K 3.8 3.9 3.9 CL 102 104 102 CO2 30 31* 29 BUN 16 21* 23* CREATININE 1.95* 2.03* 2.11* GLUCOSE 210* 207* 229* IV Drips and Rate/Dose sodium chloride dextrose Safety - Before each treatment: Dialysis Machine No.: [id number] RO Machine No.: [id number] Dialyzer Lot No.: [id number] RO Machine Log Sheet Completed: Yes Machine Alarm Self Test: Completed;Passed (04/04/21 0803) Machine Autotest: Passed,Completed Air Foam Detector: Proper Function,Tested,pH Reading Extracorporeal Circuit Tested for Integrity: Yes Machine Conductivity: 13.8 Manual Conductivity: 13.8 Machine Ph: 7 Bicarbonate Concentrate Lot No.: [id number] Acid Concentrate Lot No.: [id number] Manual Ph: 7 Bleach Test (Neg): Yes Bath Temperature: 96.8 F (36 C) Tubing Lot#: [id number] Conductivity Meter Serial #: [id number] All Connections Secure?: Yes Venous Parameters Set?: Yes Arterial Parameters Set?: Yes Saline Line Double Clamped?: Yes Air Foam Detector Engaged?: Yes Machine Functioning Alarm Free? Yes Prime Given: 200ml Chlorine Testing - Before each treatment and every 4 hours: Treatment Treatment Number: 3 Time On: 08 Time Off: 1155 Treatment Goal: 3-4L Weight: (!) 401 lb 10.9 oz (182.2 kg) (04/04/21310) 1st check: less than 0.1 ppm at: [...] Response to Education: Verbalized Understanding Spoke with staff development nurse Poornima and informed her that Wound Care [...] comfortably in bed. hopeful to go to [facility] because she enjoys seeing the deer from [...] medically stable for discharge to facility, however, [facility] having concerns regarding transportation to dialysis -will [...] 1:[address] Flores's LEONIDAS, Radha Steeltanya) - Completed course of IV antibiotics on [...] discharge to [facility] to [facility]. Remove PICC line prior to discharge - Goals of Care: FULL CODE - DVT Prophylaxis: HSQ q8h - GI Prophylaxis: Protonix daily - Diet: Minced and Moist; Hope Associated attestation - Jamie Rubio DO - [...] no other complaints; excited to go to [facility]. -[facility] still has concerns regarding transport to dialysis [...] medically stable for discharge to facility, however, [facility] having concerns regarding transportation to dialysis -will [...] discharge to LTAC, pending placement. [facility] having concerns about transportation to dialysis. Remove PICC line prior to discharge - Goals of Care: FULL CODE - DVT Prophylaxis: HSQ q8h - GI Prophylaxis: Protonix daily - Diet: Dysphagia - Minced and Moist; Mildly Thick (Hope) Associated attestation - Jamie Rubio DO - [...] [facility] [place] Patient: Salazar Coyle Unit/Bed: 1640/147957 Date of : 1950 Acct: [id number] Admitting Diagnosis: Right foot infection [L08.9] Subacute [...] dextrose DVT Prophylaxis: Data: CBC: Recent Labs 03/30/2132803/31/2125104/01/21227 WBC 5.6 4.7 4.6 RBC 3.01* 2.95* [...] # WHITLEY/ATN from Normotensive ATN (hypovolemia) on GRID TRIMMER since 03/17/2021 - Scr as expected, uop [...] hesitate to call with any questions Pager [phone] Images from the original note were not included. Med Team Progress Note Salazar Coyle : 1950(70 y.o.) Date: April 01, 2021 Med Team: Alvaro Attending: Dr. Rubio [...] medically stable for discharge to facility, however, [facility] having concerns regarding transportation to dialysis WHITLEY [...] stable for discharge to LTAC, pending placement. [facility] and [facility] having concerns about transportation to dialysis. Remove PICC line prior to discharge - Goals of Care: FULL CODE - DVT Prophylaxis: HSQ q8h - GI Prophylaxis: Protonix daily - Diet: Dysphagia - Minced and Moist; Mildly Thick (Hope) Associated attestation - Jamie Rubio DO - [...] [facility] [place] Patient: Salazar Coyle Unit/Bed: 1640/144169 Date of : 1950 Acct: [id number] Admitting Diagnosis: Right foot infection [L08.9] Subacute [...] Data: CBC: Recent Labs 03/29/21 0115 03/30/21 0329 03/31/21 0252 WBC 4.7 5.6 4.7 RBC 2.99* 3.01* 2.95* HGB 8.2* 8.4* 8.2* HCT 26.2* 26.6* 25.9* MCV 87.6 88.6 87.6 RDW 18.2* 18.3* 18.3* PLT 218 219 219 BMP: Recent Labs 03/29/21 0115 03/30/21 0329 03/31/21 0252 NA 138 138 139 K 4.1 3.9 4.0 CL 102 102 102 CO2 29 28 29 PHOS 4.4 3.6 4.0 BUN 19 12 [...] # WHITLEY/ATN from Normotensive ATN (hypovolemia) on GRID TRIMMER since 03/17/2021 - HD per MWF schedule [...] Statement I have personally participated in a zdkf-ns-suea history and physical exam on the date of service. Reviewed chart, vitals and labs. I also participated in medical decision making with nurse practitioner.on the date of service and I agree with all of the pertinent clinical information, assessment and treatment plan. Patient Name: Salazar Coyle Patient : 1950 Acct: [id number] Date of Admission: 03/08/2021 Room/Bed: [facility] [place] Code Status: Full Code Allergies: No Known [...] (Bicarb): 35 Na+ Modeling: Not Applicable Dialyzer: [id number] Dialysate Temperature (C): 36 Blood Flow Rate [...] - Before each treatment: Dialysis Machine No.: [id number] RO Machine No.: [id number] Dialyzer Lot No.: [id number] RO Machine Log Sheet Completed: Yes Machine Alarm Self Test: Completed;Passed (03/31/21806) Machine Autotest: Completed,Passed Air Foam Detector: Tested,Proper Function,pH Reading Extracorporeal Circuit Tested for Integrity: Yes Machine Conductivity: 14.0 Manual Conductivity: 13.8 Machine Ph: 7 Bicarbonate Concentrate Lot No.: [id number] Acid Concentrate Lot No.: [id number] Manual Ph: 7 Bleach Test (Neg): Yes Bath Temperature: 96.8 F (36 C) Tubing Lot#: [id number] Conductivity Meter Serial #: [id number] All Connections Secure?: Yes Venous Parameters Set?: Yes Arterial Parameters Set?: Yes Saline Line Double Clamped?: Yes Air Foam Detector Engaged?: Yes Machine Functioning Alarm Free? Yes Prime Given: 200ml Chlorine Testing - Before each treatment and every 4 hours: Treatment Treatment Number: 3 Time On: 923 Time Off: 1253 Treatment Goal: 3-4L Weight: (!) 414 lb [...] Pressure (mmHg) TMP DFR Comments Access Visible 03/31/2124 200 ml/min 1000 ml/hr 13 ml -20 [...] that she would like to return to [facility] if possible. Informed patient that social work is working hard to see if she can return to [facility] vs. [facility] and will be updated with any available information. Patient voiced understanding. Agree with the above. No acute overnight events noted. Patient states that she is currently feeling well. Does no right foot pain and asking when she is due for pain medication. Would like to return to [facility] if she is able. Review of Systems [...] medically stable for discharge to facility, however, [facility] having concerns regarding transportation to dialysis Productive [...] Hypotension - Fluctuating BPs while in ICU, this AM - BP improved since dialysis [...] discharge to LTAC, pending placement. [facility] having concerns about transportation to dialysis. Remove PICC line prior to discharge - Goals of Care: FULL CODE - DVT Prophylaxis: HSQ q8h - GI Prophylaxis: Protonix daily - Diet: Dysphagia - Minced and Moist; Mildly Thick (Hope) Associated attestation - Jamie Rubio DO - [...] with WHITLEY/ATN from normotensive ATN (hypovolemia) on GRID TRIMMER since 03/17/2021. Acute encephalopathy likely multifactorial from hypercapnia, toxic/metabolic, and medications induced (gabapentin/baclofen). Noted mentation at baseline this am. Wound care is following. MEDICARE NURSE recommending soft and bites sized with thin [...] Fluid Accumulation: 7 - Moderate to Severe Synthetic Gem Press Operator Strength: Not Performed Estimated Daily Nutrient Needs: Energy (kcal): 22-25 kcals/kg IBW = 6304-5119 kcals/day; Weight Used for Energy Requirements: [place] Protein (g): 1.2-1.4g = 60-70g protein/day; Weight Used for Protein Requirements: [place] Fluid (ml/day): per MD; Method Used for [...] CL -- 102 102 102 CO2 -- BUN -- 16 19 12 CREATININE -- [...] noted pt started on HD this admit) [place] Body Weight: 110 lbs; Nutrition Interventions: Food [...] continued to yell out. Pt premedicated per staff development nurse with oral pain medication and IV Ativan [...] pt not allowing her leg to be lifted.)[place] tissues with surrounding pink epithelial tissues. Periwound clear. No purulence. Cleansed with saline, patted dry, and covered with mepilex 4x4 foam dressing. Padded with ABD and secured with kerlix. Would recommend to remove wound VAC from right plantar foot on Sunday 04/01 and start Santyl ointment with saline moist gauze Daily over the weekend. D/W staff development nurse. Notified Orthopedic resident of plan for dressing changes over weekend and reapplication of VAC Sunday. Wound Care will continue to follow pt for wound VAC and reapply on Tuesday 04/04. Please page Wound Care Team for any questions or concerns at pager [phone]. [facility] Progress Note [facility] [place] Patient: Salazar Coyle Unit/Bed: 9244/627309 Date of : 1950 Acct: [id number] Admitting Diagnosis: Right foot infection [L08.9] Subacute [...] CBC: Recent Labs 03/28/21 0006 03/29/21 0115 03/30/21 0329 WBC 5.9 4.7 5.6 RBC 2.94* 2.99* 3.01* HGB 8.1* 8.2* 8.4* HCT 26.1* 26.2* 26.6* MCV 88.7 87.6 88.6 RDW 17.7* 18.2* 18.3* PLT 210 218 219 BMP: Recent Labs 03/28/21 0006 03/28/21 0954 03/29/21 0115 03/30/21 0329 NA -- 139 138 138 K -- 3.7 4.1 3.9 CL -- 102 102 102 CO2 -- 29 29 28 PHOS 3.7 -- 4.4 3.6 BUN -- 16 19 12 CREATININE -- 2.65* 2.78* 2.04* BNP: No [...] # WHITLEY/ATN from Normotensive ATN (hypovolemia) on GRID TRIMMER since 03/17/2021 - HD per MWF schedule [...] Statement I have personally participated in a gbcp-oq-ejmy history and physical exam on the date of service. Reviewed chart, vitals and labs. I also participated in medical decision making with nurse practitioner.on the date of service and I agree with all of the pertinent clinical information, assessment and treatment plan. Speech Language Pathology Facility/Department: [facility] [place] Dysphagia Treatment Note NAME: Salazar Coyle [...] she would like to go back to [facility] if possible. Agree with the above. Patient [...] Dysphagia - Minced and Moist; Mildly Thick (Hope) Associated attestation - Jamie Rubio DO - [...] Name: Salazar Coyle Patient : 1950 Acct: [id number] Date of Admission: 03/08/2021 Room/Bed: 1640/900398 Code Status: Full Code Allergies: No Known [...] RN (First Initial, Last Name, Title): Tee Frazier Incapacitated Nurse Education Completed: Not Applicable HBsAg ONLY: Date Drawn: March 17, 2021 Results: Negative HBsAb: Date Drawn: March 17, 2021 Results: Susceptible <10 Order Dialysis Bath K+ (Potassium): 3 Ca+ (Calcium): 2.5 Na+ (Sodium): 137 HCO3 (Bicarb): 35 Na+ Modeling: Not Applicable Dialyzer: [id number] Dialysate Temperature (C): 36 Blood Flow Rate [...] - Before each treatment: Dialysis Machine No.: [id number] RO Machine No.: [id number] Dialyzer Lot No.: [id number] RO Machine Log Sheet Completed: Yes Machine Alarm Self Test: Passed;Completed (03/29/21 141) Machine Autotest: Completed,Passed Air Foam Detector: Tested,Proper Function,pH Reading Extracorporeal Circuit Tested for Integrity: Yes Machine Conductivity: 13.6 Manual Conductivity: 13.6 Machine Ph: 7 Bicarbonate Concentrate Lot No.: [id number] Acid Concentrate Lot No.: [id number] Manual Ph: 7 Bleach Test (Neg): Yes Bath Temperature: 96.8 F (36 C) Tubing Lot#: [id number] Conductivity Meter Serial #: [id number] All Connections Secure?: Yes Venous Parameters Set?: [...] Tools: Explanation Response to Education: Verbalized Understanding [facility] Progress Note [facility] [place] Patient: Salazar Coyle Unit/Bed: 1644/1644B Date of : 1950 Acct: [id number] Admitting Diagnosis: Right foot infection [L08.9] Subacute [...] # WHITLEY/ATN from Normotensive ATN (hypovolemia) on GRID TRIMMER since 03/17/2021 - HD per MWF schedule, [...] Statement I have personally participated in a hivi-mo-dckj history and physical exam on the date of service. Reviewed chart, vitals and labs. I also participated in medical decision making with nurse practitioner.on the date of service and I agree with all of the pertinent clinical information, assessment and treatment plan. Speech Language Pathology MEDICARE NURSE spoke with RN to request diet advancement to a soft and bite-sized diet with thin liquids. MEDICARE NURSE will follow to continue dysphagia plan of care and ensure patient safety with diet advancements prior to signing off. Willow Mccormack OR, [facility]/MEDICARE NURSE [facility] Respiratory Care Department Progress Note As [...] sob, abd pain, dysuria. Discussed updates from SW about SNF placement. Pt understood and is [...] Dysphagia - Minced and Moist; Mildly Thick (Hope) Associated attestation - Jamie Rubio DO - [...] Progress Note [facility] [place] Patient: Salazar oCyle Unit/Bed: 1644/1644B Date of : 1950 Acct: [id number] Admitting Diagnosis: Right foot infection [L08.9] Subacute [...] Dysphagia - Minced and Moist; Mildly Thick (Hope) Medications: ipratropium-albuterol 1 ampule Inhalation TID Baclofen [...] dextrose DVT Prophylaxis: Data: CBC: Recent Labs 03/26/21 0118 03/27/218 03/28/21 0006 WBC 5.6 5.8 5.9 RBC 2.96* 2.97* 2.94* HGB 8.2* 8.2* 8.1* HCT 26.0* 26.3* 26.1* MCV 87.6 88.4 88.7 RDW 17.4* 17.7* 17.7* PLT 198 220 210 BMP: Recent Labs 03/26/21 0118 03/27/21 0338 03/28/21 0006 03/28/21 0954 NA 139 139 -- [...] CHOL, HDL, TRIG LIVER PROFILE: Recent Labs 03/26/21 0118 AST 26 ALT 8 BILITOT 0.4 ALKPHOS 87 ABGs: Lab Results Component Value Date PH 7.29 03/23/2021 Assessment/Plan: Salazar Coyle 70 y.o. year old female who we are seeing in consultation for WHITLEY. # WHITLEY/ATN from Normotensive ATN (hypovolemia) on GRID TRIMMER since 03/17/2021 - HD per MWF schedule [...] hesitate to call with any questions Pager [phone] Images from the original note were not [...] and time. Psychiatric: Comments: Calm, no agitation [place] Symptom Assessment Score [place] Score Pain Score 0 Tiredness Score 0 [...] Note Initiated: yes. Speech Language Pathology Facility/Department: [address] Dysphagia Treatment Note NAME: Salazar Coyle [...] received medication for pain and patient declined MEDICARE NURSE attempts/offers to elevate leg or trial upright positioning while monitoring leg pain. Patient agreeable to trialing upgrades despite fxyg-pihf-oxhynia positioning. O: Assess diet tolerance/upgrade trials A: [...] at times, delayed throat clearing x 1; MEDICARE NURSE cued patient to utilize small sips with [...] bolus to avoid larger sips of liquid. MEDICARE NURSE will continue to follow with dysphagia plan of care; however, if patient remains safe with advanced diet, suspect patient is at maximum diet potential with current positioning restrictions. MEDICARE NURSE to follow. Time In: 0950 Total Session [...] any concerns, page Wound Care Team at #[phone], or call via Bjond. Images from the original note were not [...] with thin liquids Associated attestation - Jamie Rubio DO - 03/28/2021 2:20 PM EST I have [...] Name: Salazar Coyle Patient : 1950 Acct: [id number] Date of Admission: 03/08/2021 Room/Bed: 1644/1644B Code [...] (Bicarb): 35 Na+ Modeling: Not Applicable Dialyzer: [id number] Dialysate Temperature (C): 36 Blood Flow Rate [...] RR greater than 10 Labs Recent Labs 03/25/21 0221 03/26/21 0118 03/27/21 0338 WBC 5.9 5.6 5.8 HGB 8.5* 8.2* 8.2* HCT 27.4* 26.0* 26.3* PLT 200 198 220 Recent Labs 03/25/21 0221 03/26/21 0118 03/27/21 0338 NA 138 139 139 K 3.8 3.8 3.9 CL 101 102 103 CO2 26 28 27 BUN 16 20 23* CREATININE 2.58* 3.02* 3.38* GLUCOSE 187* 176* 158* IV Drips and Rate/Dose sodium chloride dextrose Safety - Before each treatment: Dialysis Machine No.: [id number] RO Machine No.: [id number] Dialyzer Lot No.: [id number] RO Machine Log Sheet Completed: Yes Machine Alarm Self Test: Completed;Passed (03/27/21 1437) Machine Autotest: Completed,Passed Air Foam Detector: Tested,Proper Function,pH Reading Extracorporeal Circuit Tested for Integrity: Yes Machine Conductivity: 13.9 Manual Conductivity: 13.8 Machine Ph: 7 Bicarbonate Concentrate Lot No.: [id number] Acid Concentrate Lot No.: [id number] Manual Ph: 7 Bleach Test (Neg): Yes Bath Temperature: 96.8 F (36 C) Tubing Lot#: [id number] Conductivity Meter Serial #: [id number] All Connections Secure?: Yes Venous Parameters Set?: [...] Tools: Explanation Response to Education: Verbalized Understanding [facility] Progress Note Subjective/ Salazar Coyle [...] BID Juan Adams, DO 5 mg at 03/27/21 0852 insulin glargine (LANTUS) injection vial 12 Units 12 Units SubCUTAneous Nightly Juan Betancourtar, DO 12 Units at 03/26/212110 LORazepam (ATIVAN) [...] # WHITLEY/ATN from Normotensive ATN (hypovolemia) on GRID TRIMMER since 03/17/2021 - HD per MWF schedule [...] further changes Will follow Edyta Alfredo MD [facility] Pager #[phone] 03/27/21 3:02 PM Pt refused to change [...] Dysphagia - Minced and Moist; Mildly Thick (Hope) Attending Supervising Physician's Attestation Statement for Progress [...] of the scheduled oral medications were given. [facility] Progress Note Subjective/ Salazar Amandaford 70 y.o. [...] 10 Units 10 Units SubCUTAneous Nightly Juan Sindelar, DO 10 Units at 03/25/212029 LORazepam (ATIVAN) injection 0.5 mg 0.5 mg IntraVENous BID PRN Muna Velázquez MD melatonin tablet 3 mg 3 mg Oral Nightly Keon Young MD 3 mg at 03/25/212028 oxyCODONE (ROXICODONE) immediate release tablet 5 mg 5 mg Oral Q4H PRN Juan Betancourtar, DO 5 mg at 03/25/212127 acetaminophen (TYLENOL) [...] TID Oriana Cho, DO 5 mg at 03/26/2122 gabapentin (NEURONTIN) capsule 100 mg 100 mg Oral BID Oriana Cho, DO 100 mg at 03/26/21 0922 heparin (porcine) injection 1,100 Units 1,100 Units IntraCATHeter PRN Oriana Cho, DO 1,100 Units at 03/22/212012 heparin (porcine) injection 1,200 Units 1,200 Units IntraCATHeter PRN Oriana Cho, DO 1,200 Units at 03/22/212013 Baclofen (LIORESAL) tablet 5 mg 5 mg Oral TID Oriana Cho, DO 5 mg at 03/26/21 0923 insulin lispro (HUMALOG) injection vial 0-6 Units 0-6 Units SubCUTAneous TID Oriana Cho, DO 1 Units at 03/26/21 0920 mineral oil-hydrophilic petrolatum (AQUAPHOR) ointment Topical BID [...] injection 10 mL 10 mL IntraCATHeter Q12H Leoenl Sood MD 10 mL at 03/26/21 0349 [...] (!) 162/58 Pulse: 69 76 76 Resp: 18 18 24 Temp: 97.5 F (36.4 C) 96.7 [...] RIJ TDC, normal exam Labs: Recent Labs 03/24/214 03/25/211 03/26/21 0118 WBC 4.6 5.9 5.6 HGB 7.6* 8.5* 8.2* HCT 24.4* 27.4* 26.0* MCV 87.3 88.8 87.6 PLT 171 200 198 Recent Labs 03/24/214 03/25/211 03/26/21 0118 NA 139 138 139 K 3.8 3.8 3.8 CL 102 101 102 CO2 27 26 28 GLUCOSE 212* 187* 176* PHOS 3.9 3.8 4.3 BUN 19 16 20 CREATININE 3.12* 2.58* 3.02* Assessment/ Salazar Coyle 70 y.o. year old [...] further changes Will follow Edyta Alfredo MD [facility] Pager #[phone] 03/26/21 10:03 AM Images from the original [...] Dysphagia - Minced and Moist; Mildly Thick (Hope) Attending Supervising Physician's Attestation Statement for Progress [...] medical care with med team and RN. [facility] Progress Note Subjective/ Salazar Coyle [...] 10 Units 10 Units SubCUTAneous Nightly Juan Adams DO 10 Units at 03/24/212200 LORazepam (ATIVAN) [...] Topical BID Oriana Cho, DO Given at 03/24/21 2158 hydrALAZINE (APRESOLINE) injection 10 mg 10 mg IntraVENous Q3H PRN Loenel Sood MD 10 mg at 03/15/21 1109 [...] BID Leonel Sood MD Given at 03/24/21 2158 stomahesive in petrolatum (ET MIX) Topical PRN Leonel Sood MD stomahesive in petrolatum (ET MIX) Topical BID Leonel Sood MD Given at 03/24/21 2158 sodium chloride flush 0.9 % injection 5-40 [...] moving all ext Affect: Neutral/ Euthymic Access: BRIAN RASMUSSEN, normal exam Labs: Recent Labs 03/23/21 0532 [...] Primary Discharge Diagnosis: Principal Problem: Foot ulcer ([facility]) Active Problems: Edema Wounds, multiple PAF (paroxysmal atrial fibrillation) ([facility]) Hypertension Hyperlipemia 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 ([facility]) Morbid obesity with BMI of 60.0-69.9, adult ([facility]) Cognitive decline Anemia Chronic indwelling Jose catheter Hyperglycemia CKD (chronic kidney disease) Asymptomatic bacteriuria Resolved Problems: Acute on chronic respiratory failure with hypercapnia ([facility]) Subacute osteomyelitis of right foot ([facility]) Palliative care encounter Encephalopathy acute WHITLEY (acute kidney injury) ([facility]) Acute respiratory failure ([facility]) Reason for Admission & Hospital Course: Salazar [...] discharged in safe and stable condition to [facility] on 04/15/2021. Disposition: Proced Tech Care Facility (Non-Skilled) Activity: up with assist [...] baclofen restarted at decreased dose Stopped bumex 2/ worsening Cr function Insulin changed to 28 [...] Department Center 04/20/2021 2:00 PM GILLIAN Pérez ORT [facility] Item (more content not included)... [facility] 02-10-2021 Note Send Summary: Discharge Summary Providers: Provider RoleProvider Name Cliff Barrientos Matthew [employer], Km [employer]Yoly, Jens ConsultingPhikenna, Reji Bradford, Loli Olivares, Diego Patterson Note Recipients: Diego Elmore MD - [id number] [] Viet Justice MD Discharge: Summary: Admission Date: .06-Feb-2021 10:40:00 Discharge Date: 10-Feb-2021 Attending Physician at Discharge: Cliff Anaya Admission Reason: RLE CLTI(1) Final Discharge Diagnoses: Paroxysmal atrial fibrillation Procedures: PICC line inserted on 02/07/2021 for residential ANB Condition at Discharge: Fair Disposition at Discharge: [facility] Facility Vital Signs: T PRBPSpO2 Value37.98919455/6595% Date/Time02/10 13: 13: 5: 13: 13:30 Range(36.1C - 37.7C ) (61 - 73 ) (18 - 18 ) (143 - 210 )/ (63 - 85 ) (94% - 95% ) Highest temp of 37.7 C was recorded at 02/09 19:55 Date: Weight/Scale Type:Height: 06-Feb-2021 16:09022.7 kg / pfp591.1 cm Physical Exam: Constitutional: Well developed , [...] She was admitted 02/02 - 02/06/21 to [facility] from [facility] for right foot osteomyelitis which was treated [...] She was unable to tolerate MONICA/TBI at [facility]. She was recommended transfer to a tertiary care center where more services are available for further management. She was admitted to [facility] om 02/06/21. Case has been discussed with vascular surgery as well as cardiology and medicine at [facility]. Pt has longstanding lower extremity problem. [...] diabetic/carbohydrate counted Diabetic/Carbo (more content not included)... [facility] 02-06-2021 Note History of Present I [...] She was admitted 02/02 - 02/06/21 to [facility] from [facility] for right foot osteomyelitis which was treated [...] She was unable to tolerate MONICA/TBI at [facility]. She was recommended transfer to a tertiary [...] this patient. Objective: Objective Information: T PRBPSpO2 Value36.62240156/6292% Date/Time02/06 11: 11: 11: 11: 11:09 Range(36.4C [...] 12 Hours P (more content not included)... [facility] 02-06-2021 Note Send Summary: Discharge Summary Providers: Provider RoleProvider Name Diego Gee Note Recipients: Diego Elmore MD - [id number] [] Discharge: Summary: Admission Date: .02-Feb-2021 18:10:00 Discharge Date: 06-Feb-2021 Attending Physician at Discharge: Km Parry Admission Reason: lower leg wound and cellutlitis Final Discharge Diagnoses: Cellulitis, Cellulitis of lower extremity, Obesities, morbid Procedures: wound biopsy Condition at Discharge: Fair Disposition at Discharge: [facility] Vital Signs: T PRBPSpO2 Value37.28026042/6195% Date/Time02/06 7: 7: 7: 7: 7:48 Range(36.5C - 37.3C ) (69 - 88 ) (16 - 18 ) (103 - 165 )/ (60 - 76 ) (91% - 95% ) Highest temp of 37.3 C was recorded at 02/06 7:48 Date: Weight/Scale Type:Height: 02-Feb-2021 23:04447.7 kg / hud367.1 cm Physical Exam: Patient seen and examined [...] Female Who was sent from critical care long-term to the emergency room for right foot [...] Nonsmoker, no alcohol abuse, long-term resident at long-term Hospital course: Patient was placed on IV [...] biopsy reported, awaiting sensitivity. Being transferred to [facility] for vascular consult. Patient was seen [...] -Wound dressed with (more content not included)... [facility] 02-02-2021 Note History of Present I llness: HPI: SALAZAR COYLE is a 70 year old Female Who was sent from critical care long-term to the emergency room for right foot [...] Nonsmoker, no alcohol abuse, long-term resident at long-term Family history: Heart disease Comorbidities: Comorbidites: Comorbid [...] As Needed. Objective: Objective Information: T PRBPSpO2 [id number]/7594% Date/Time02/02 18: 21: 21: 21: 21:00 Range(37.7C [...] color Recent Lab (more content not included)... [facility] Evaluation note Skin: warm dryEyes: PERRL, [...] x3, not in acute distress, significantly obese 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) Type II or unspecified type diabetes mellitus with other specified manifestations, not stated as uncontrolled Palliative care encounter Encounter for palliative care Morbid obesity with BMI of 60.0-69.9, adult ([facility]) Cognitive decline Unspecified persistent mental disorders due to conditions classified elsewhere Encephalopathy acute Encephalopathy, unspecified WHITLEY (acute kidney injury) (HCC) Acute kidney failure, unspecified Acute respiratory failure (HCC) Acute respiratory failure Acute on chronic respiratory failure with hypercapnia ([facility]) Edema Wounds, multiple Open wound(s) (multiple) of unspecified site(s), without mention of complication Hypertension Unspecified essential hypertension Hyperlipemia Other and unspecified hyperlipidemia Anemia Anemia, unspecified Chronic indwelling Jose catheter Other postprocedural status PAF (paroxysmal atrial fibrillation) ([facility]) Atrial fibrillation Hyperglycemia Other abnormal glucose CKD (chronic kidney disease) Chronic kidney disease, unspecified Asymptomatic bacteriuria Other nonspecific finding on examination of urine documented in this encounter [facility] Work Phone: Evaluation note* Diagnosis Inflammatory reaction due to indwelling ureteral stent, initial encounter ([facility]) Chronic kidney disease, unspecified CKD stage Other chronic pain Inflammatory reaction due to indwelling ureteral stent, initial encounter ([facility]) [facility] Diagnosis Radicular pain in right arm- Primary Unspecified neuralgia, neuritis, and radiculitis Radicular pain in right arm Unspecified neuralgia, neuritis, and radiculitis Neck muscle spasm Cystitis Unspecified cystitis 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 ([facility]) Degenerative disc disease, cervical [facility] Diagnosis Severe sepsis ([facility])- Primary Asymptomatic bacteriuria Other nonspecific finding on examination of urine Chronic heart failure with preserved ejection fraction (HCC) Severe sepsis (HCC) 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, stage 3 (HCC) Degenerative disc disease, cervical Calculus of ureter [facility] Diagnosis Ureteropelvic junction calculus- Primary [facility]* Diagnosis Acute cystitis without hematuria- Primary Left ureteral calculus Calculus of ureter Calculus of ureter [facility]* Diagnosis Altered mental status, unspecified altered mental status type- Primary Altered mental status, unspecified altered mental status type Morbidly obese (HCC) Morbid obesity Patient immobile for more than [...] Calculus of ureter [facility] this encounter [facility]* Diagnosis Acute cystitis without hematuria- Primary Left ureteral calculus Calculus of ureter Calculus of ureter documented in [facility] encounter [facility]* Diagnosis Left ureteral calculus- Primary Calculus of ureter [facility] in this encounter [facility]* Diagnosis Renal calculus, left- Primary Calculus of kidney Chronic indwelling Jose catheter [facility]* Diagnosis Septic shock (CMS/HCC) (HCC)- Primary Septic shock (CMS/HCC) (HCC) Kidney stone Calculus of kidney Calculus of ureter documented in this encounter [facility]* Diagnosis Sepsis (HCC)- Primary Sepsis (HCC) [...] stage 3b (HCC) [facility]* Diagnosis Encephalopathy- Primary Unspecified encephalopathy Encephalopathy Unspecified encephalopathy Urinary tract infection without hematuria, site unspecified Lymphedema of both lower extremities Cellulitis of right lower limb [facility] Additional Orders:Additional Instructions: [facility] to [facility] Activity:activity as tolerated. * Labs 1 (Modify Template):Lab Test(s): CBC with dif, Comprehensive Metabolic Panel, CRP, ESRDate To Be Drawn: every weeklyCall Results To: dr. Santiago Results To: [phone] * Wound Care 1:Other Instructions: BLE: daily [...] Monitoring: ACHSAdditional Instructions: Thank you for choosing [facility] - it has been a pleasure taking [...] about the care you received please call [facility] at .Additional Instructions*You have been started on a new medication, please carefully review dosing regimen. * Care Recommendation:I recommend that INPATIENT care is required at: SkilledEstimated Stay: Convalescent stay < 30 daysPrognosis: GoodRehab Potential/Function: Improve * Therapy Orders:Occupational Therapy Orders: Eval and Treat ([facility])Physical Therapy Orders: Eval and Treat ([facility])Speech Therapy Orders: Eval and Treat ([facility]) * Provider Follow Up:Physician To Follow at [facility]: Attending Physician at [facility] * Follow Up Appointment 1:Physician/Dept/Service: dr. Zaragozaocation: [place]:[phone]: call fo appt in 3 weeks * IV Hydration:Type Of Vascular Access: PICCPICC Insertion Date: [id number] Location: right upper armPICC Device Type: single lumen * Safety:Siderails: yesSiderails Number/Reason: 2/safetyRestraints: noSitter: noFall Risk: weakness * Pressure Ulcer 1:Location: right buttockDressing: mepilex [facility] Other Phone (unformatted): [phone] Discharge instructions* Attachments The following attachments cannot be sent through Care Everywhere. 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) Procedures PA OFFICE/OUTPATIENT [facility] 60-74 MINUTES Poornima Escobedo APRN - CNP [address] [place] [address] Referral ID Status Reason Start Date Expiration Date Visits Requested Visits Authorized [id number] Pending Review Specialty Services Required 3 01/10/2024 1 1 [facility] Consultation (Routine) - Pending Review Specialty Diagnoses / Procedures Referred By Contac t Referred To Contact Wound Care Diagnoses 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, stage 3 (HCC) Procedures PA OFFICE/OUTPATIENT NEW HIGH MDM 60 MINUTES Poornima Escobedo APRN - CNP [address] [place] [address] [facility] Op Wnd Ostomy Hbo [address] [place] [address] Referral ID Status Reason Start Date Expiration Date Visits Requested Visits Authorized [id number] Pending Review Specialty Services Required 08/01/2023 07/31/2024 1 1 [facility] Summary Purpose Family History No Family History Records FoundNo Family History Records FoundNo Family History Records FoundNo Family History Records FoundNo Family History Records FoundNo Family History Records FoundNo Family History Records FoundNo Family History Records FoundNo Family History Records FoundNo Family History Records Found Advance Directives No Advanced Directives Records FoundDocuments on File Type Date Recorded 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 ACP-Advance Directive ACP-Power of De Icer Finisher Latest Code Status on File Code Status Date Activated Date Inactivated Comments Full Code 03/13/2021 2:11 PM Full Code 03/08/2021 9:19 PM 03/13/2021 2:11 PM Documents on File Type Date Recorded 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 Advance Directives and Livin g [...] Documents on File Type Date Recorded 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 Power of De Icer Finisher 01/08/2023 3:53 AM Previ ously scanned Advance [...] Documents on File Type Date Recorded 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 Advance Directives and Living Will 08/10/2023 9:07 AM Power of De Icer Finisher 01/08/2023 3:53 AM Previ ously scanned Advance [...] Documents on File Type Date Recorded 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 Advance Directives and Living Will 08/10/2023 9:07 AM Power of De Icer Finisher 01/08/2023 3:53 AM Previ ously scanned Advance [...] Documents on File Type Date Recorded 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 Power of De Icer Finisher 11/22/2023 8:38 PM Advance Directives and Living Will 08/10/2023 9:07 AM Power of De Icer Finisher 01/08/2023 3:53 AM Previ ously scanned Advance [...] Documents on File Type Date Recorded 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 DNR (Do Not Resuscitate) 11/30/2023 11:07 AM Power of De Icer Finisher 11/22/2023 8:38 PM Advance Directives and Living Will 08/10/2023 9:07 AM Power of De Icer Finisher 01/08/2023 3:53 AM Previ ously scanned Advance [...] Documents on File Type Date Recorded 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 DNR (Do Not Resuscitate) 11/30/2023 11:07 AM Power of De Icer Finisher 11/22/2023 8:38 PM Advance Directives and Living Will 08/10/2023 9:07 AM Power of De Icer Finisher 01/08/2023 3:53 AM Previ ously scanned Advance [...] Documents on File Type Date Recorded 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 Advance Directives and Living Will [...] Documents on File Type Date Recorded 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..] Intubation: No Hospital Course Note HNO ID: [id number] Author: Alyssa Lemon Service: Hospital Medicine Author [...] Team: Attending Provider: Araceli Lemon Primary Service: [facility] Consulting: Tye Mcclendon (more content not included)... Note HNO ID: [id number] Author: Kinjal Greco Service: Hospital Medicine Author [...] Team: Attending Provider: Susan Greco Primary Service: [employer] MY CONDITION AT DISCHARGE: Stable R (more content not included)... 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 [address] [place] [address] Referral ID Status Reason Start Date Expiration Date Visits Requested Visits Authorized [id number] Pending Review Specialty Services Required 03/09/2021 03/09/2022 1 1 Scheduling Instructions [facility] [address] [place] [address] Additional Source Comments INFORMATION SOURCE (unrecogn ized section and content) DATE CREATED AUTHOR 01/04/2019 [facility] DATE CREATED AUTHOR AUTHOR'S ORGANIZ ATION 05/06/2019 [facility] DATE CREATED AUTHOR AUTHOR'S ORGANIZ ATION 12/30/2020 [facility] DATE CREATED AUTHOR AUTHOR'S ORGANIZ ATION 02/20/2021 [facility] DATE CREATED AUTHOR AUTHOR'S ORGANIZ ATION 03/01/2021 [facility] DATE CREATED AUTHOR AUTHOR'S ORGANIZ ATION 04/16/2021 [facility] DATE CREATED AUTHOR AUTHOR'S ORGANIZ ATION 04/28/2021 [facility] DATE CREATED AUTHOR AUTHOR'S ORGANIZ ATION 08/05/2023 [facility] DATE CREATED AUTHOR AUTHOR'S ORGANIZ ATION 02/07/[address] [facility] DATE CREATED AUTHOR AUTHOR'S ORGANIZ ATION 02/10/2025 [facility] <item><item> Privacy Markings (unrecogniz ed section and [...] due to indwelling ureteral stent, initial encounter ([facility]) Procedures T83.592A Deacon Tariq MD [address] [place] [address] [facility] [address] [address] Referral ID Status Reason Start Date Expiration Date Visits Re quested Visits Authorized [id number] 1 1 Reason Comments Neck Pain Arm Pain Leg Pain Specialty Diagnoses / Procedures Referred By Contac t Referred To Contact Diagnoses Radicular pain in right arm Procedures / Hilda, MD Apolinar [address] [facility] Kiesha, [facility] [address] [place] [address] [facility] Emergency Dept [address] [place] [address] Referral ID Status Reason Start Date Expiration Date Visits Re quested Visits Authorized [id number] 1 1 Reason Comments Altered Mental Status Specialty Diagnoses / Procedures Referred By Giovani t Referred To Contact Diagnoses Asymptomatic bacteriuria Severe sepsis (HCC) Chronic heart failure with preserved ejection fraction (HCC) Procedures R82.95MMJ-95-EMEnffxtsfzgur bacteriuria Maya Del Real, [address] [place] [address] [facility] 2 Icu [address] [place] [address] Referral ID Status Reason Start Date Expiration Date Visits Re quested Visits Authorized [id number] 1 1 Reason Onset Date Comments Care Coordination Outreach 09/27/2023 Transportation Issues 09/27/2023 Specialty Diagnoses / Procedures Referred By Giovani t Referred To Contact Diagnoses Calculus of ureter Procedures PA CYSTOURETHROSCOPY PA CYSTO W/URETEROSCOPY W/LITHOTRIPSY PA CYSTO W/INSERT URETERAL STENT CYSTOSCOPY LEFT URETEROSCOPY, HOLMIUM LASER LITHOTRIPSY LEFT URETERAL STENT CHANGE Bashir Vásquez MD [address] [place] [address] [facility] Main Or [address] [place] [address] Referral ID Status Reason Start Date Expiration Date Visits Re quested Visits Authorized [id number] 1 1 Reason Onset Date Comments Other 09/27/2023 Cancelled Appointment 09/27/2023 Reason Onset Date Comments Post-op Follow-up 11/25/2023 Hospital Follow-up 11/25/2023 Reason Comments Altered Mental Status Pt arrives via EMS from [facility] for AMS. Per EMS pt began acting confused and BGT was elevated starting at 5pm. Pt A&Ox4 at baseline but was A&Ox2 for facility. Pt is A&Ox3 upon arrival. Pt c/o pain to left arm and left leg. Specialty Diagnoses / Procedures Referred By Giovani t Referred To Contact Diagnoses Altered mental status, unspecified altered mental status type Procedures R41.72YUO-18-GWVhlpaub mental status, unspecified altered mental status type Jeffry Sal MD [address] [place] [address] [facility] Emergency Dept [address] [place] [address] Referral ID Status Reason Start Date Expiration Date Visits Re quested Visits Authorized [id number] 1 1 Specialty Diagnoses / Procedures Referred By Contac t Referred To Contact Diagnoses Calculus of ureter Procedures PA CYSTOURETHROSCOPY PA CYSTO W/URETEROSCOPY W/LITHOTRIPSY PA CYSTO W/INSERT URETERAL STENT CYSTOSCOPY LEFT URETEROSCOPIC HOLMIUM LASER LITHOTRIPSY LEFT URETERAL STENT CHANGE Bashir Vásquez MD [address] [facility] [address] [place] [address] Referral ID Status Reason Start Date Expiration Date Visits Re quested Visits Authorized [id number] 11/26/2023 1 1 Reason Onset Date Comments Other 01/02/2024 Procedure Reason Comments Altered Mental Status Fever Blood Infection Specialty Diagnoses / Procedures Referred By Contac t Referred To Contact Diagnoses Septic shock (CMS/HCC) (HCC) Procedures A41.9 Franchesca Mckeon MD [address] [place] [address] [facility] Icu [address] [place] [address] Referral ID Status Reason Start Date Expiration Date Visits Re quested Visits Authorized [id number] 1 1 Reason Comments Altered Mental Status Specialty Diagnoses / Procedures Referred By Contac t Referred To Contact Diagnoses Sepsis (HCC) Procedures .. Cristino Bruno DO [address] [facility] [address] [place] [address] Phone: tel: fax: [facility] Intensive Care Unit ICU [address] [place] [address] Phone: tel: Referral ID Status Reason Start Date Expiration Date Visits Re quested Visits Authorized [id number] 1 1 Reason Comments Altered Mental Status Pt arrives via EMS from [facility] for AMS. Per report pt family was visiting yesterday and noted pt was not herself. Normally aox4. Staff noted HR in 120s this am and not speaking normally and moaning all morning. Specialty Diagnoses / Procedures Referred By Contac t Referred To Contact Diagnoses Encephalopathy Procedures . Godwin Goetz MD [address] [place] [address] Phone: tel: fax: [facility] ED [address] [place] [address] Phone: tel: fax: Referral ID Status Reason Start Date Expiration Date Visits Re quested Visits Authorized [id number] 1 1 Ordered Prescriptions (unrec ognized section [...] 24 hours. 0757 (Given - Provider: Emilie Natacha, RN)1347 (Given - Provider: Emilie Manzano RN)1954 (Given - Provider: Kristi Lai RN) 0937 (Given - Provider: Emilie Manzano RN)1327 (Given - Provider: Emilie Manzano RN)2040 (Given - Provider: Kristi Lai RN) 0911 (Given - Provider: Nayely Vuong, MATHEUS)1400 (Due)2100 (Due) apixaban (ELIQUIS) tablet 5 mg 5 mg, Oral, 2 TIMES DAILY, First dose on Sun04/08/21 at 1115, ANTICOAGULANT 0758 (Given - Provider: Emilie Manzano RN)195 (Given - Provider: Kristi Lai RN) 0937 (Given - Provider: Emilie Manzano RN)204 (Given - Provider: Kristi Lai RN) 0911 (Given - Provider: Nayely Vuong RN)2100 (Due) aspirin chewable tablet 81 mg 81 [...] 2100 0758 (Given - Provider: Emilie Manzano RN)1954 (Given - Provider: Kristi Lai RN) 0937 (Given - Provider: Emilie Manzano RN)2040 (Given - Provider: Kristi Lai RN) 0911 (Given - Provider: Nayely Vuong RN)2100 (Due) calcium-cholecalciferol 500-200 MG-UNIT per tablet 1 tablet 1 tablet, Oral, DAILY, First dose (after last modification) on Sun03/22/21 at 0900 0758 (Given - Provider: Emilie Manzano RN) 0938 (Given - Provider: Emilie Manzano RN) 0911 (Given - Provider: Nayely Vuong, MATHEUS) collagenase ointment Topical, EVERY MWF, First dose (after last modification) on Sun04/08/21 at 0900, Apply to *Right plantar foot with wound VAC dressing changes 1350 (Given by Other - Provider: Emilie Manzano RN - Comment: Given by wound care) 1400 (Due - Provider: Nayely Vuong, MATHEUS) donepezil (ARICEPT) tablet 5 mg 5 mg, Oral, NIGHTLY, First dose (after last modification) on Sun03/21/21 at 2100 1955 (Given - Provider: Kristi Lai RN) 2038 (Given - Provider: Kristi Lai RN) 2099 (Due) gabapentin (NEURONTIN) capsule 100 mg 100 mg, Oral, 2 TIMES DAILY, First dose on Sun03/18/21 at 1245 0757 (Given - Provider: Emilie Manzano RN)195 (Given - Provider: Kristi Lai RN) 0938 (Given - Provider: Emilie Manzano RN)2038 (Given - Provider: Kristi Lai RN) 0911 [...] Manzano RN) 0845 (Given - Provider: Emilie Manzano RN)1327 (Given - Provider: Emilie Manzano RN)1702 (Given - Provider: Emilie Manzano RN) 0912 (Given - Provider: Nayely Vuong RN)1305 (Given - Provider: Nayely Vuong RN)1700 (Due) insulin lispro (HUMALOG) injection vial 8 Units 8 Units, SubCUTAneous, 3 TIMES DAILY WITH MEALS, First dose (after last modification) on Sun04/11/21 at 1200 0805 (Given - Provider: Emilie Manzano RN)1351 (Given - Provider: Emilie Manzano RN)1728 (Given - Provider: Emilie Manzano RN) 0910 (Given - Provider: Emilie Manzano RN)1326 (Given - Provider: Emilie Manzano RN)1702 (Given - Provider: Emilie Manzano RN) 0912 (Given - Provider: Nayely Vuong RN)1305 (Given - Provider: Nayely Vuong RN)1700 (Due) melatonin tablet 3 mg 3 mg, Oral, NIGHTLY, First dose on Sun03/22/21 at 2100 1954 (Given - Provider: Kristi Lai RN) 2038 [...] (Given - Provider: Nayely Vuong RN)2099 (Due) mineral oil-hydrophilic petrolatum (AQUAPHOR) ointment Topical, 2 TIMES DAILY, First dose on Sun03/16/21 at 2100, Apply to BLE. 0800 (Given - Provider: Emilie Manzano RN)195 (Given - Provider: Kristi Lai RN) 0932 (Not Given - Provider: Emilie Manzano RN - Reason: Patient/family refused)2037 (Given - Provider: Kristi Lai RN) 1007 (Not Given - Provider: Nayely Vuong RN - Reason: Patient/family refused)2100 (Due) pantoprazole (PROTONIX) tablet 40 mg 40 [...] RN) 0911 (Given - Provider: Nayely Vuong, MATHEUS) sodium chloride flush 0.9 % injection 5-40 [...] at 1400 0233 (Given - Provider: Vanessa Stewart, RN)0800 (Given - Provider: Emilie Manzano, RN)1954 (Given - Provider: Kristi Lai, RN) 0940 [...] patient NOT ALERT or NPO., Starting on Sun04/09/21 at 0806, If patient does not respond [...] does not have IV access., Starting on Sun04/09/21 at 0806, After administration, attempt intravenous access [...] Oral, PRN, Low blood sugar, Starting on Sun04/09/21 at 0806, If blood glucose less than [...] IntraCATHeter, PRN, Line Care, Dialysis, Starting on Sun03/27/21 at 1746 heparin (porcine) injection 2,200 Units 2,200 Units, IntraCATHeter, PRN, Line Care, Dialysis, Starting on Sun03/27/21 at 1746 heparin flush 100 UNIT/ML injection 250 Units 250 Units, IntraCATHeter, PRN, Line Care, after blood draws and after infusion, Starting on Sun03/13/21 at 1527, Do NOT administer to lumens [...] at 1315 1347 (Given - Provider: Emilie Manzano RN) 2039 (Given - Provider: Kristi Lai RN) 1420 (Given - Provider: Letitia Ernandez RN) [...] dose on Sun08/04/22 at 0600, 1. Left lyons: Venous stasis dermatitis - Clean with Hibiclens then Apply Lac-Hydrin. Leave FORGING DIES FINAL FINISHER. Apply daily and PRN. 2. Right lyons: Venous stasis dermatitis - Clean with Hibiclens then Apply Lac-Hydrin. Leave LINDSEY. Apply daily and PRN. 0600 (Not Given - Provider: Carlos Wright RN - Reason: Other - Comment: pt sleeping) 0600 (Not Given - Provider: Hortensia Garcia RN - Reason: Patient/family refused) 0620 (Given - Provider: Dayana Jalloh RN) apixaban (Eliquis) tablet 5 mg 5 mg, Oral, 2 times daily, First dose on Sun08/02/22 at 2100, Anticoagulant 0951 (Given - Provider: Alecia Gabriel RN)2017 (Given - Provider: Hortensia Garcia RN) 0941 (Given - Provider: Charo Milner RN)2147 (Given - Provider: Dayana Jalloh RN) 0845 (Given - Provider: Charo Milner RN) atorvastatin [...] Nightly, First dose on Sun08/02/22 at 2100 2018 (Given - Provider: Hortensia Garcia RN) 2148 (Given - Provider: Dayana Jalloh RN) ertapenem [...] 2100 0950 (Given - Provider: Alecia Gabriel RN)2017 (Given - Provider: Hortensia Garcia RN) 0942 [...] 2017 (Given - Provider: Hortensia Garcia RN) 2148 (Given - Provider: Dayana Jalloh RN) phenazopyridine [...] Midline or Central Line = 20 mL/lumen 952 (Given - Provider: Alecia Gabriel RN)2025 (Given - Provider: Hortensia Garcia, MATHEUS) 0952 (Given - Provider: Charo Milner, MATHEUS)2204 (Given - Provider: Dayana Jalloh RN) 0846 [...] Clean with Hibiclens then Apply Lac-Hydrin. Leave FORGING DIES FINAL FINISHER. Apply daily and PRN. 2. Right lyons: Venous stasis dermatitis - Clean with Hibiclens then Apply Lac-Hydrin. Leave FORGING DIES FINAL FINISHER. Apply daily and PRN. dextrose 5 % [...] at 1012 1116 (Given - Provider: Charo Milner RN) ondansetron (Zofran) injection 4 mg(Linked Group 2) [...] PRN, severe pain (7-10), Starting on Celeste 08/03/23 at 315 2022 (Given - Provider: Hortensia Garcia, RN) 0226 (Given - Provider: Hortensia Garcia [...] 1305, Anticoagulant 0846 (Given - Provider: Mimi Shah, MATHEUS)2141 (Given - Provider: Jesus Manuel Grande RN) 0916 (Given - Provider: Mimi Shah RN)213 (Given - Provider: Cathy Esteves RN) 0908 (Given - Provider: Alivia Delgado RN) ascorbic acid (Vitamin C) tablet 250 [...] 0908 (Given - Provider: Alivia Delgado RN) Diclofenac Sodium (Voltaren) 1 % gel 4 g 4 g, Topical, 2 times daily, First dose on Sun01/08/23 at 1440, Apply to affected area 0900 (Not Given - Provider: Mimi Shah RN - Reason: Patient/family refused)2139 (Given - Provider: Jesus Manuel Grande RN) 0900 (Not Given - Provider: Mimi Shah RN - Reason: Patient/family refused)2133 (Given - Provider: Cathy Esteves RN) 0910 (Given - Provider: Alivia Delgado, MATHEUS) donepezil [...] Mimi Shah RN)1449 (Given - Provider: Mimi Shah, MATHEUS)2130 (Given - Provider: Cathy Esteves, MATHEUS) 0908 (Given - Provider: Alivia Delgado, MATHEUS)1306 (Given - Provider: Alivia Delgado, MATHEUS) Influenza Vac A&B SA Adj quadrivalent (Fluad) vaccine 0.5 mL 0.5 mL, IntraMUSCular, Once, On Sun01/09/23 at 0900, For 1 dose insulin glargine (Lantus) injection 10 Units 10 Units, SubCUTAneous, Nightly, First dose on Sun01/08/23 at 2100 2141 (Given - Provider: Jesus Manuel Grande RN) 2130 (Given - Provider: Cathy Esteves, MATHEUS) Insulin [...] Shah RN) 0909 (Given - Provider: Alivia Delgado, MATHEUS)1254 (Given - Provider: Alivia Delgado, MATHEUS)1700 (Canceled Entry - Provider: Automatic Discharge [...] RN) 0908 (Given - Provider: Alivia Delgado, MATHEUS)1253 (Given - Provider: Alivia Delgado, MATHEUS)1700 (Canceled Entry - Provider: Automatic Discharge [...] Infection 0400 (Due - Provider: Giovani Arreola [facility])1000 (New Bag - Provider: Mimi Shah [...] Esteves RN) 0910 (Given - Provider: Alivia Delgado RN)1306 (Given - Provider: Alivia Delgado, RN) PRN Medication Order 01/09/2023 01/10/2023 01/11/2023 acetaminophen (Tylenol) suppository 650 mg(Linked Group 1) 650 mg, Rectal, Every 6 hours PRN, mild pain (1-3), fever, For temp greater than 100.4 F (38 C), Starting on Sun01/08/23 at 1300, Administer if oral route cannot be used. Maximum dose of acetaminophen is 4000 mg from all sources in 24 hours. 2140 (See Alternative - Provider: Jesus Manuel Grande RN) 428 (See Alternative - Provider: Freda Avila, MATHEUS)1145 (See Alternative - Provider: Alivia Delgado, MATHEUS) acetaminophen (Tylenol) tablet 650 mg(Linked Group 1) 650 mg, Oral, Every 6 hours PRN, mild pain (1-3), fever, For temp greater than 100.4 F (38 C), Starting on Sun01/08/23 at 1300, Maximum dose of acetaminophen is 4000 mg from all sources in 24 hours. 2140 (Given - Provider: Jesus Manuel Grande RN) 428 (Given - Provider: Freda Avila, MATHEUS)1145 (Given - Provider: Alivia Delgado, MATHEUS) baclofen (Lioresal) tablet 5 mg 5 mg, Oral, 3 times daily PRN, muscle spasm, Starting on Sun01/08/23 at 2030 2140 (Given - Provider: Jesus Manuel Grande RN) [...] Grande RN) 0945 (Given - Provider: Mimi Shah RN)2134 (Given - Provider: Cathy Esteves RN) 0341 (Given - Provider: Freda Avila RN)6983 (Given - Provider: Alivia Delgado RN) polyethylene glycol (PEG) 3350 (Miralax) packet [...] and legs apply to dry scaling skin 0846 (Given - Provider: Ninoska Nicolas RN)214 (Given - Provider: Yolanda Luna RN) 1100 [...] CNP) 0900 (Dose Auto Held - Provider: Reyna Calderón APRN DIRECTOR PROFESSIONAL SERVICES)1400 (Dose Auto Held - Provider: Reyna Calderón APRN GUS)2100 (Dose Auto Held - Provider: Reyna Calderón APRN DIRECTOR PROFESSIONAL SERVICES) 0900 (Dose Auto Held - Provider: Reyna Calderón APRN GUS)1400 (Dose Auto Held - Provider: Reyna Calderón APRN GUS)1918 (Unheld by provider - Provider: Automatic Discharge [...] Sun08/07/23 at 0800 1001 (Given - Provider: Ninsoka Nicolas RN)1505 (Given - Provider: Ninoska Nicolas RN) 0607 (Given - Provider: Yolanda Luna RN)1536 (Given - Provider: Wendy Dunbar RN) 0625 (Given - Provider: Yolanda Luna RN)1426 (Given - Provider: Wai SpainMATHEUS) cyanocobalamin (Vitamin B-12) tablet 1,000 mcg 1,000 [...] & On Unit, Apply to affected areas 899 (Given - Provider: Ninoska Nicolas RN)2099 (Given - Provider: Yolanda Luna RN) 899 (Given - Provider: Wendy Dunbar RN)2099 (Given - Provider: Yolanda Luna RN) 899 (Not Given - Provider: Wai Spain RN [...] 2134 (Given - Provider: Yolanda Luna RN) 2117 (Given - Provider: Yolanda Luna RN) Insulin [...] 1700 0900 (Not Given - Provider: Ninoska Nicolas RN - Reason: Order parameters not met - Comment: pt not eating breakfast)1154 (Given - Provider: Ninoska Nicolas RN)1748 (Given - Provider: Ninoska Nicolas RN) 0853 (Given - Provider: Wendy Dunbar, RN)1314 (Given - Provider: Wendy Dunbar RN)1751 (Given - Provider: Wendy Dunbar RN) 0846 (Given - Provider: Wai Spain RN)1207 (Given - Provider: Wai Spain RN)1700 (Canceled [...] On Unit, On hold since Sun07/31/2023 at 2027 until manually unheld 0900 (Dose Auto Held) 0900 (Dose Auto Held) 09 (Dose Auto Held)191 (Unheld by provider - Provider: Automatic Discharge [...] 0600 0846 (Given - Provider: Ninoska Nicolas RN)2148 (Given - Provider: Yolanda Luna RN) 1100 (Given - Provider: Wendy Dunbar RN)2116 (Given - Provider: Yolanda Luna RN) 0847 (Given - Provider: Wai Spain RN) nystatin (Mycostatin) cream Topical, 2 times daily, First dose on Sun07/31/23 at 0900, Recovery & On Unit, Apply to affected area(s) 0846 (Given - Provider: Ninoska Nicolas RN)2148 (Given - Provider: Yolanda Luna RN) 1099 (Given - Provider: Wendy Dunbar RN)2116 (Given - Provider: Yolanda Luna RN) 0846 [...] out onto bed)0848 (Given - Provider: Wai Spain, MATHEUS)1424 (Given - Provider: Wai Spain RN) Petrolatum [...] (Dose Auto Held - Provider: Reyna Calderón, ZINA - DIRECTOR PROFESSIONAL SERVICES)0815 (Unheld by provider - Provider: Reynold Garner [...] at 2145 0845 (Given - Provider: Ninoska Nicolas RN)2152 (Given - Provider: Yolanda Luna RN) 0854 [...] 0855 (Not Given - Provider: Humberto Vieira [facility] - Reason: Patient/family refused)1999 (Not Given - Provider: She Martin [facility] - Reason: Patient/family refused) 1000 (Not Given - Provider: Gladis Patel, [facility] - Reason: Patient/family refused)1999 (Canceled Entry - Provider: Automatic Discharge Provider - Comment: Automatically canceled at discontinue of medication order) 0800 (Not Given - Provider: Julio C Sanchez, [facility] - Reason: Patient/family refused) stomahesive in petrolatum (ET Mix) Topical, Every 8 hours, First dose on Sun07/30/23 at 2230 0530 (Given - Provider: Yolanda Luna RN)1506 (Given - Provider: Ninoska Nicolas RN)2138 (Given - Provider: Yolanda Luna RN) [...] F (38 C), Starting on Sun07/30/23 at 2127, Administer if oral route cannot be used. [...] pupils, RR < 8; notify primary team proposition player if used ondansetron (Zofran) injection 4 mg(Linked [...] 1004 1239 (Given - Provider: Ninoska Nicolas RN)1812 (Given - Provider: Ninoska Nicolas RN)2318 (Given - Provider: Yolanda Luna RN) [...] 1100 (Given - Provid er: Darrick Do, ZNIA - RECREATION ATTENDANT) famotidine (Pepcid) tablet 20 mg (COMPLETED)(Linked Group [...] patient NOT ALERT or NPO., Starting on [facility] 09/27/23 at 1021, Preprocedure, If patient does [...] does not have IV access., Starting on [facility] 09/27/23 at 1014, Preprocedure, After administration, attempt intravenous access and start D5W at 100 mL/hr. Repeat blood glucose in 15 minutes x2 and notify provider. glucagon (human recombinant) injection 1 mg 1 mg, IntraMUSCular, PRN, low blood sugar, Blood glucose less than 70 mg/dL and patient NOT ALERT or NPO and does not have IV access., Starting on [facility] 09/27/23 at 1021, Preprocedure, After administration, attempt intravenous access and start D5W at 100 mL/hr. Repeat blood glucose in 15 minutes x2 and notify provider. glucose oral gel 15 g 15 g, Oral, As needed, low blood sugar, Starting on [facility] 09/27/23 at 1014, Preprocedure, If blood glucose [...] As needed, low blood sugar, Starting on [facility] 09/27/23 at 1021, Preprocedure, If blood glucose [...] physician 1030 (Given - Provid er: Mee Liu RN)1431 (Given - Provider: Christiane Crowe RN) Insulin [...] RN) 0835 (Given - Provider: Charlotte Mccarty RN)2052 (Given - Provider: Carlos Lopez RN) 0817 (Given - Provider: Abdi Abraham RN)2100 (Canceled [...] RN)2009 (Given - Provider: Ally Do RN) 08 (Given - Provider: Charlotte Mccarty RN)153 (Given - Provider: Charlotte Mccarty RN)205 (Given - Provider: Carlos Lopez RN) 0900 (Given - Provider: Abdi Abraham RN)1454 (Given - Provider: Abdi Abraham RN)2100 (Canceled [...] Held)0955 (Unheld by provider - Provider: Mari Garg APRN - [facility])1535 (Given - Provider: Charlotte Mccarty RN) 0620 (Given - Provider: Carlos Lopez RN)1454 (Given - Provider: Abdi Abraham, MATHEUS) Diclofenac Sodium (Voltaren) 1 % gel 4 g 4 g, Topical, 2 times daily, First dose on Sun11/23/23 at 0250, Apply to affected areas 0821 (Given - Provider: Kelsie Wren RN)2099 (Not Given - Provider: Cathy Pelayo RN - Reason: Patient/family refused) 09 (Not Given - Provider: Charlotte Mccarty RN - Reason: Patient/family refused)2099 (Given - Provider: Carlos Lopez RN) 0824 (Given - Provider: Abdi Abraham, MATHEUS)2099 (Canceled Entry - Provider: Automatic Discharge Provider [...] RN) 0835 (Given - Provider: Charlotte Mccarty RN)153 (Given - Provider: Charlotte Mccarty RN)2052 (Given - Provider: Carlos Lopez RN) 0817 (Given - Provider: Abdi Abraham, RN)1453 (Given - Provider: Abdi Arbaham, MATHEUS)2099 (Canceled Entry - Provider: Automatic Discharge Provider - Comment: Automatically canceled at discontinue of medication order) insulin glargine (Lantus) injection 30 Units 30 Units, SubCUTAneous, Nightly, First dose on Sun11/23/23 at 2100 [...] 12 Units 0818 (Given - Provider: Kelsie Wren RN)1249 (Given - Provider: Kelsie Wren RN)1652 (Given - Provider: Kelsie Wren RN) 0834 (Given - Provider: Charlotte Mccarty, MATHEUS)1253 (Given - Provider: Charlotte Mccarty, RN)1834 (Given - Provider: Charlotte Mccarty, RN) 0820 (Given - Provider: Abdi Abraham, MATHEUS)1137 (Given - Provider: Abdi Abraham, MATHEUS)1732 (Given - Provider: Abdi Abraham, RN) Insulin Lispro (Humalog) injection 0-12 Units(Linked [...] Do RN) 2051 (Given - Provider: Carlos Lopez, MATHEUS) 2099 (Canceled Entry - Provider: Automatic Discharge Provider - Comment: Automatically canceled at discontinue of medication order) Insulin Lispro (Humalog) injection 5 Units (CANCELED) 5 Units, SubCUTAneous, 3 times daily with meals, First dose on Sun11/23/23 at 0800 0813 (Canceled Entry - Provider: Kelsie Wren RN)0818 (Given - Provider: Kelsie Wren RN) Insulin Lispro (Humalog) injection 7 Units 7 [...] Charlotte Mccarty RN)1253 (Given - Provider: Charlotte Mccarty RN)1835 (Given - Provider: Charlotte Mccarty RN) 0817 (Given - Provider: Abdi Abraham, MATHEUS)1138 (Given - Provider: Abdi Abraham, MATHEUS)1734 (Given - Provider: Abdi Abraham, MATHEUS) melatonin tablet 6 mg 6 mg, Oral, Nightly, First dose on Sun11/23/23 at 2099 2008 (Given - Provider: Ally Do RN) 2052 (Given - Provider: Carlos Lopez, MATHEUS) 2099 (Canceled Entry - Provider: Automatic Discharge [...] Kelsie Wren RN)1123 (Stopped - Provider: Kelsie Wren, MATHEUS)1821 (New Bag - Provider: Kelsie Wren RN)2121 (Stopped - Provider: Cathy Pelayo RN) 0200 (Not Given - Provider: Neelima Arevalo RN - Reason: Loss of IV access)0900 [...] Abraham RN)1453 (New Bag - Provider: Abdi Abraham, MATHEUS)1753 (Stopped - Provider: Christina Clemens RN)2300 (Canceled [...] and PRN 0820 (Given - Provider: Kelsie Wren, MATHEUS)2100 (Not Given - Provider: Cathy Pelayo RN [...] mix then leave LINDSEY TID and PRN 0820 (Given - Provider: Kelsie Wren RN)1249 (Given - Provider: Kelsie Wren, MATHEUS)1915 (Not Given - Provider: Cathy Pelayo RN - Reason: Patient/family refused) 0315 (Not Given - Provider: Neelima Arevalo RN - Reason: Patient/family refused)1115 (Not Given - Provider: Charlotte Mccarty RN - Reason: Other)1915 (Given - Provider: Carlos Lopez RN) 0315 (Given - Provider: Carlos Lopez RN)1141 (Given - Provider: Abdi Abraham RN)1915 (Canceled Entry - Provider: Automatic Discharge Provider [...] Kelsie Wren RN)1243 (Stopped - Provider: Kelsie Wren RN) 0845 (Not Given - Provider: Charlotte [...] sedation for opioid reversal - MUST notify proposition player provider immediately after first dose, may give [...] at 2105 0811 (Given - Provider: Kelsie Wren, MATHEUS)1255 (Given - Provider: Kelsie Wren, MATHEUS)1704 (Given - Provider: Kelsie Wren RN) 0844 (Given - Provider: Charlotte Mccarty RN)1249 (Given - Provider: Charlotte Mccarty RN) 0817 [...] at 200 mL/hr, Administer over 60 Minutes, Sheet Sewer to O.R., On Celeste 01/03/24 at 1000, [...] mg, Oral, Once PRN, anxiety, Starting on Celetse 01/03/24 at 0948, For 1 dose, Preprocedure, Please do not administer prior to obtaining consent and/or history and physical. dextrose 5 % infusion 100 mL/hr, IntraVENous, PRN, Blood sugar less than 70mg/dL, Starting on [place] 01/03/24 at 0948, Preprocedure, Start infusion following administration of dextrose 50% or glucagon. dextrose 5 % infusion 100 mL/hr, IntraVENous, PRN, Blood sugar less than 70mg/dL, Starting on Celetse 01/03/24 at 1026, Preprocedure, Start infusion following [...] (Given - Provider: Francisco Kirkland APRN - RECREATION ATTENDANT) labetalol (Normodyne,Trandate) injection 5 mg(Linked Group 2) [...] Sun06/09/22 at 2100, For 7 days, Anticoagulant 08 (Given - Provider: Elisa Torres RN)2010 (Given - Provider: Adwoa Do, MATHEUS - Comment: Given by RAFA Aleman) 900 (Given - Provider: Lauro Alexander RN)2001 (Given - Provider: Annette Barnes, MATHEUS) 905 (Given - Provider: Nany Salazar, RN) atorvastatin (Lipitor) tablet 20 mg 20 mg, Oral, Daily, First dose on Sun06/09/22 at 1930 0801 (Given - Provider: Elisa Torres RN) 900 (Given - Provider: Lauro Alexander, MATHEUS) 905 (Given - Provider: Nany Salazar, MATHEUS) baclofen (Lioresal) tablet 5 mg 5 mg, Oral, 2 times daily, First dose on Sun06/09/22 at 2100 0806 (Given - Provider: Elisa Torres RN)2010 (Given - Provider: Adwoa Do RN - Comment: Given by RAFA Aleman) 900 (Given - Provider: Lauro Alexander RN)2001 (Given - Provider: Annette Barnes RN) 0906 (Given - Provider: Nany Salazar, MATHEUS) ertapenem (INVanz) 1,000 mg in sodium chloride 0.9 % 50 mL IVPB Mini-Bag Plus 1,000 mg, IntraVENous, at 100 mL/hr, Administer over 30 Minutes, Every 24 hours, First dose on 06/12/22 at 2000, Mini-Bag Plus bag, Suspected Indication (Select all that apply): Bloodstream Infection, Urinary Tract Infection 2010 (Given - Provider: Adwoa Do RN - Comment: Given by RAFA Aleman) 2001 (Given - Provider: Annette Barnes RN) gabapentin (Neurontin) capsule 100 mg 100 mg, Oral, 2 times daily, First dose on Sun06/09/22 at 2100 0900 (Dose Auto Held)2100 (Dose Auto Held) 0900 (Dose Auto Held)2100 (Dose Auto Held) 0900 (Dose Auto Held)194 (Unheld by provider - [...] Nightly, First dose on Sun06/09/22 at 2100 2102 (Given - Provider: Annette Barnes RN) 2021 [...] 18 Units 0008 (Given - Provider: Emilia August, MATHEUS)0500 (Not Given - Provider: Emilia August RN [...] RAFA Aleman) 2001 (Given - Provider: Annette Barnes, MATHEUS) pantoprazole (ProtoNix) injection 40 mg(Linked Group 1) [...] Care. Use 10 mL or larger syringe. 1744 (Canceled Entry - Provider: Automatic Discharge Provider [...] 20 mL/lumen 0800 (Given - Provider: Elisa Torres RN)2010 (Given - Provider: Adwoa Do RN - Comment: Given by RAFA Aleman) 901 (Given - Provider: Lauro Alexander RN)2023 (Given - Provider: Annette Barnes, MATHEUS) 905 (Given - Provider: Nany Salazar RN) PRN Medication Order 06/14/2022 06/15/2022 06/16/2022 dextrose [...] Right lower neck) lidocaine-EPINEPHrine (Xylocaine W/EPI) 2 %-[id number] injection (COMPLETED) As needed, Starting on Sun06/15/22 [...] 2 times daily, First dose on [place]este 10/09/24 at 2100, Anticoagulant 0827 (Given - Provider: Luis Asher RN)2150 (Given - Provider: Annette Obregon RN) 0914 (Given - Provider: Luis Asher RN)2039 (Given - Provider: Reyna Sher RN) 0905 (Given - Provider: Selvin Morris RN) chlorhexidine (Hibiclens) 4 % solution Topical, Daily, First dose on Sun10/10/24 at 1400 1347 (Not Given - Provider: Luis Asher RN - Reason: Patient/family refused) 1353 (Not Given - Provider: Luis Asher RN - Reason: Patient/family refused) donepezil (Aricept) tablet 10 mg 10 mg, Oral, Nightly, First dose on [place] 10/09/24 at 2100 2150 (Given - Provider: Annette Obregon RN) 2039 (Given - Provider: Reyna Sher, MATHEUS) gabapentin (Neurontin) capsule 300 mg 300 mg, Oral, 3 times daily, First dose on [place] 10/09/24 at 2100 0827 (Given - Provider: Luis Asher RN)1347 (Given - Provider: Luis Asher RN)2150 (Given - Provider: Annette Obregon RN) 0914 (Given - Provider: Luis Asher RN)1408 (Given - Provider: Luis Asher RN)2038 (Given - Provider: Reyna Sher, MATHEUS) 09 (Given - Provider: Selvin Morris, MATHEUS) insulin glargine (Lantus) injection 30 Units 30 Units, SubCUTAneous, Nightly, First dose (after last modification) on 10/11/24 at 2100 215 (Given - Provider: Annette Obregon RN) 2046 (Given - Provider: Reyna Sher, MATHEUS) Insulin Lispro (Humalog) injection 0-12 Units(Linked [...] Comment: abd) 0905 (Given - Provider: Selvin Morris, MATHEUS)1200 (Canceled Entry - Provider: Automatic Discharge Provider [...] 12 Units 2151 (Given - Provider: Annette Obreogn, MATHEUS) 2133 (Given - Provider: Reyna Sher, MATHEUS) [...] 2039 (Given - Provider: Reyna Sher RN) miconazole (Micotin) 2 % powder Topical, 2 times daily, First dose on Sun10/09/24 at 2100 0229 (Not Given - Provider: Reyna Sher RN - Reason: Patient/family refused)0828 (Not Given - Provider: Luis Asher RN - Reason: Patient/family refused)2153 (Given - Provider: Annette Obregon RN) 0915 (Not Given - Provider: Luis Asher RN [...] NS. Vial expires 2 hrs after reconstitution. 0827 (Given - Provider: Luis Asher RN) 0915 (Given - Provider: Luis Asher RN) 0907 (Given - Provider: Selvin Morris RN) sodium [...] Luis Asher RN)2217 (Given - Provider: Annette Obregon, RN) 0702 (Given - Provider: Annette Obregon RN)1409 (Given - Provider: Luis Asher RN)203 (Given - Provider: Reyna Sher, MATHEUS)211 (Not Given - Provider: Reyna Sher RN - Reason: Other - Comment: duplicate) 0414 (Given - Provider: Reyna Sher RN)0645 (Canceled Entry - Provider: Automatic Discharge Provider [...] Provider: Luis Asher RN - Reason: Patient/family refused)2154 (Not Given - Provider: Annette Obregon RN - Reason: Patient/family refused) 0906 (Not Given - Provider: Luis Asher RN [...] opioid reversal, respiratory depression, Starting on Celeste 7/10/25 at 1817, +++ For RR <10, pinpoint pupils, over sedation for opioid reversal - MUST notify proposition player provider immediately after first dose, may give [...] hours PRN, severe pain (7-10), Starting on 10/13/24 at 1401 0827 (Given - Provider: Luis Asher, MATHEUS)2151 (Given - Provider: Annette Obregon, MATHEUS) 0156 (Given - Provider: Annette Obregon RN)0914 (Given - Provider: Luis Asher, MATHEUS)2054 (Given - Provider: Reyna Sher, MATHEUS) 0922 (Given - Provider: Selvin Morris RN) potassium chloride (Klor-Con) packet 40 mEq(Linked Group [...] draws, infusion, or medication administration, Starting on Celeste 10/09/24 at 2236, For Line Patency: Peripheral IV [...] Serrato RN)1312 (Given - Provider: Armando Serrato RN)2110 (Not [...] Anticoagulant 0842 (Given - Provider: Armando Serrato RN)211 (Not Given - Provider: Kailey Cross RN - Reason: Patient/family refused) 0824 (Given - Provider: Armando Serrato RN)215 (Not Given - Provider: Kailey Cross RN - Reason: Other - Comment: patient lethargic) 0831 (Given - Provider: Karen Noel LPN) baclofen (Lioresal) tablet 5 mg 5 mg, Oral, 3 times daily, First dose on Celeste 01/29/25 at 1400 0842 (Given - Provider: Armando Serrato RN)1311 (Given - Provider: Armando Serrato RN)2109 (Not Given - Provider: Kailey Cross RN - Reason: Patient/family refused) 0823 (Given - Provider: Armando Serrato RN)1342 (Given - Provider: Armando Serrato RN)215 (Not Given - Provider: Kailey Cross RN [...] Serrato RN)1342 (Given - Provider: Armando Serrato RN)215 (Not Given - Provider: Kailey Cross RN [...] First dose on [place] 01/29/25 at 2100 210 (Given - Provider: Kailey Cross RN) 2147 (Given - Provider: Kailey Cross RN) Insulin [...] 0-12 Units, SubCUTAneous, Nightly, First dose on Celeste 01/29/25 at 2100, If eating or bolus tube feeding: Medium Dose Correction Algorithm Glucose: Dose: LESS than 150 No Insulin 150-199 2 Units 200-249 4 Units 250-299 6 Units 300-349 8 Units 350-400 10 Units Above 400 12 Units 2108 (Not Given - Provider: Kailey Cross RN - Reason: Patient/family refused) 2147 (Given - Provider: Kailey Cross RN) miconazole (Micotin) 2 % powder Topical, 2 times daily, First dose on Celeste 01/29/25 at 1325, Apply to: b/l groin 0853 (Given - Provider: Armando Serrato RN) 0518 (Given - Provider: Kailey Cross RN)0824 (Given - Provider: Armando Serrato RN)214 (Given - Provider: Kailey Cross RN) 0841 [...] Extremities 1318 (Given - Provider: Armando Serrato RN)2110 (Not Given - Provider: Kailey Cross RN - Reason: Patient/family refused) 08 (Given - Provider: Armando Serrato RN)2149 (Given [...] Kailey Cross RN - Reason: Patient/family refused) 2150 (Not Given - Provider: Kailey Cross RN [...] sedation for opioid reversal - MUST notify proposition player provider immediately after first dose, may give [...] RN) 0050 (See Alternative - Provider: Kailey Cross RN) oxyCODONE (Roxicodone) immediate release tablet 5 mg(Linked Group 4) 5 mg, Oral, Every 4 hours PRN, severe pain (7-10), Starting on Sun01/29/25 at 1431 0612 (Given - Provider: Wander Murcia RN)1311 (Given - Provider: Armando Serrato RN) 0050 (Given - Provider: Kailey Cross RN) Petrolatum ointment Topical, 2 times daily [...] PRN, agitation, Starting on Sun02/01/25 at 1338 0824 (Given - Provider: Armando [...] Care Teams (unrecognized sec tion and content) Pull Out Operator Relationship Specialty Start Date End Date Armando Robbins MD [facility], [place] [address] PCP - General Family Medicine 03/08/21 Pull Out Operator Relationship Specialty Start Date End Date Jesus RiveraDO mattie [address] [facility] [place] [address] PCP - General Internal Medicine 06/09/22 DarciAnnette hernandez A, DO [address] [place] [address] Surgeon Urology 06/11/22 Pull Out Operator Relationship Specialty Start Date End Date Miguel Paige, DO [address] [facility] [place] [address] PCP - General Internal Medicine 06/09/22 Annette Bejarano A, DO [address] [place] [address] Surgeon Urology 06/11/22 Pull Out Operator Relationship Specialty Start Date End Date Jesus RiveraDO mattie [address] [place] [address] PCP - General Internal Medicine 06/09/22 Annette Bejarano A, DO [address] [place] [address] Surgeon Urology 06/11/22 Pull Out Operator Relationship Specialty Start Date End Date Miguel Paige, DO [address] [facility] [place] [address] PCP - General Internal Medicine 06/09/22 Annette Bejarano A, DO [address] [place] [address] Surgeon Urology 06/11/22 Pull Out Operator Relationship Specialty Start Date End Date Miguel Paige, DO [address] [place] [address] PCP - General Internal Medicine 06/09/22 DarciCarleen hernandezAnnette A, DO [address] [place] [address] Surgeon Urology 06/11/22 Pull Out Operator Relationship Specialty Start Date End Date Paige Rivera DO [address] [place] [address] PCP - General Internal Medicine 06/09/22 Annette Bejarano, DO [address] [place] [address] Surgeon Urology 06/11/22 Pull Out Operator Relationship Specialty Start Date End Date Paige Rivera DO [address] [place] [address] PCP - General Internal Medicine 06/09/22 Annette Bejarano, DO [address] [place] [address] Surgeon Urology 06/11/22 Pull Out Operator Relationship Specialty Start Date End Date Paige Rivera DO [address] [place] [address] PCP - General Internal Medicine 06/09/22 Annette Bejarano, DO [address] [place] [address] Surgeon Urology 06/11/22 Pull Out Operator Relationship Specialty Start Date End Date Paige Rivera DO [address] [place] [address] PCP - General Internal Medicine 06/09/22 Annette Bejarano DO [address] [place] [address] Surgeon Urology 06/11/22 Pull Out Operator Relationship Specialty Start Date End Date Paige Rivera DO [address] [place], [place] [id number] PCP - General Internal Medicine 06/09/22 Annette Bejarano DO [address] [place], [place] [id number] Surgeon Urology 06/11/22 Bashir Vásquez MD [address] [place] [phone] Surgeon Urology 07/31/23 Pull Out Operator Relationship Specialty Start Date End Date Paige Rivera DO [address] [place] [address] PCP - General Internal Medicine 06/09/22 Annette Bejarano DO [address] [place] [address] Surgeon Urology 06/11/22 Bashir Vásquez MD [address] [place] [phone] Surgeon Urology 07/31/23 Pull Out Operator Relationship Specialty Start Date End Date Paige Rivera DO [address] [place] [address] PCP - General Internal Medicine 06/09/22 Annette Bejarano DO [address] [place] [address] Surgeon Urology 06/11/22 Bashir Vásquez MD [address] [place] [phone] Surgeon Urology 07/31/23 Pull Out Operator Relationship Specialty Start Date End Date Paige Rivera DO [address] [place] [address] PCP - General Internal Medicine 06/09/22 Annette Bejarano DO [address] [place] [address] Surgeon Urology 06/11/22 Bashir Vásquez MD [address] [place] [phone] Surgeon Urology 07/31/23 Pull Out Operator Relationship Specialty Start Date End Date Paige Rivera DO [address] [place], [place] [address] PCP - General Internal Medicine 06/09/22 Annette Bejarano DO [address] [place] [address] Surgeon Urology 06/11/22 Bashir Vásquez MD [address] [place] [phone] Surgeon Urology 07/31/23 Pull Out Operator Relationship Specialty Start Date End Date Paige Rivera DO [address] [place], [place] [id number] PCP - General Internal Medicine 06/09/22 Annette Bejarano DO [address] [place] [address] Surgeon Urology 06/11/22 Bashir Vásquez MD [address] [place] [phone] Surgeon Urology 07/31/23 Pull Out Operator Relationship Specialty Start Date End Date Paige Rivera DO [address] [place] [address] PCP - General Internal Medicine 06/09/22 Annette Bejarano DO [address] [place] [address] Surgeon Urology 06/11/22 Bashir Vásquez MD [address] [place] [phone] Surgeon Urology 07/31/23 Pull Out Operator Relationship Specialty Start Date End Date Paige Rivera DO [address] [place] [address] PCP - General Internal Medicine 06/09/22 Annette Bejarano DO [address] [place] [address] Surgeon Urology 06/11/22 Bashir Vásquez MD [address] [place] [address] Surgeon Urology 07/31/23 Pull Out Operator Relationship Specialty Start Date End Date Paige Rivera DO [address] [place] [address] PCP - General Internal Medicine 06/09/22 Annette Bejarano DO [address] [place] [address] Surgeon Urology 06/11/22 Bashir Vásquez MD [address] [place] [phone] Surgeon Urology 07/31/23 Pull Out Operator Relationship Specialty Start Date End Date Paige Rivera DO [address] [place] [address] PCP - General Internal Medicine 06/09/22 Annette Bejarano DO [address] [place] [address] Surgeon Urology 06/11/22 Bashir Vásquez MD [address] [place] [phone] Surgeon Urology 07/31/23 Pull Out Operator Relationship Specialty Start Date End Date Paige Rivera DO [address] [place] [address] PCP - General Internal Medicine 06/09/22 Pull Out Operator Relationship Specialty Start Date End Date Paige Rivera DO [address] [place] [address] PCP - General Internal Medicine 06/09/22 Annette Bejarano DO [address] [place] [address] Surgeon Urology 06/11/22 Pull Out Operator Relationship Specialty Start Date End Date Paige Rivera DO [address] [place] [address] PCP - General Internal Medicine 06/09/22 Annette Bejarano DO [address] [place] [address] Surgeon Urology 06/11/22 Pull Out Operator Relationship Specialty Start Date End Date Paige Rivera DO [address] [place] [address] PCP - General Internal Medicine 06/09/22 Annette Bejarano DO [address] [place] [address] Surgeon Urology 06/11/22 Bashir Vásquez MD [address] [place] [phone] Surgeon Urology 07/31/23 Pull Out Operator Relationship Specialty Start Date End Date Paige Rivera DO [address] [place] [address] PCP - General Internal Medicine 06/09/22 Annette Bejarano DO [address] [place] [address] Surgeon Urology 06/11/22 Bashir Vásquez MD [address] [place] [phone] Surgeon Urology 07/31/23 FOR RECORDS PERTAINING TO [...] BE BASED ON THE PRIMARY CLINICAL RECORDS. [employer] [email or web address] provides no warranty or guarantee of the accuracy or completeness of information in this document.
[2025-02-25 08:47] LABS: Hematocrit 33.8 % (37-47); Hemoglobin 10.9 g/dL (12.0-15.0); Mean Corp Hgb Conc 32.2 g/dL (32-36); Mean Corpuscular Volume 98.5 fL (81-99); Mean Platelet Vol. 13.6 fl (6.2-12.0); POSITIVE COUNT YES; Platelet Count 129 K/mm3 (150-450); RBC Distribution Width CV 14.2 % (11.6-14.6); RBC Distribution Width SD 51.0 fl (35.1-43.9); Red Blood Count 3.43 M/mm3 (4.2-5.4); White Blood Count 4.8 K/mm3 (4.4-11.0)
[2025-02-25 08:49] LABS: Scan Indicated on CBC? Y/N YES- FLAGS NOTED
[2025-02-25 08:58] LABS: Cholesterol 124 mg/dL (<=200); Low Density Lipoprotein Calc. 55 mg/dL; Triglycerides 218 mg/dL; Very Low Density Lipoprotein 44 mg/dL (5-40); cholesterol:hdl ratio screen 3.68
[2025-02-25 09:02] LABS: AST(SGOT) 29 U/L (<=31); Alanine Aminotransfer ALT/SGPT 6 U/L (<=34); Albumin, Serum 3.1 g/dL (3.4-4.8); Alkaline Phosphatase 81 U/L (35-104); Anion Gap 13 (5-15); BUN 17 mg/dL (4-19); BUN/Creat Ratio 19.7 RATIO (10-20); Calcium,Total 8.7 mg/dL (7.6-11.0); Carbon Dioxide 26.4 mmol/L (21.0-32.0); Chloride 106 mmol/L (98-108); Globulin 3.2 g/dL (2.2-4.2); Glucose 181 mg/dL (70-99); Potassium 4.9 mmol/L (3.3-5.1)
== END ==
LOC: OLS.ACW300 05:00
PROVIDERS: Visit Provider Family Medicine
DX: G93.41 Metabolic encephalopathy (principal); E11.649 Type 2 diabetes mellitus with hypoglycemia without coma; D51.9 Vitamin B12 deficiency anemia, unspecified; E83.51 Hypocalcemia
CPT/HCPCS: 36415; 80053; 80061; 85027